=== PATIENT | female | born 1960 | race Caucasian/White ===

== ENCOUNTER 2023-05-21 10:25 | Outpatient (OUT) | payer OTHER, SELFPAY ==
--- NOTE | 2023-05-21 10:12 | XR_ITS ---
The [address] [address] Patient Name: RITA COBB MRN: [id number] date: 1960 Sex: F Assigned Patient Location: [facility] Current Patient Location: [facility] Accession/Order Number: [id number] Exam Date: 05/21/2023 10:12 Report Date: 05/21/2023 14:21 At the request of: MONICA CORTEZ Procedure: XR foot LT min 3V EXAM: XR foot LT min 3V HISTORY: LEFT FOOT PAIN COMPARISON: 04/13/2023. TECHNIQUE: 3 views left foot. FINDINGS: Prior subtalar joints and multiple midfoot internal fixation screws/arthrodesis with partial bony bridging at the posterior facet subtalar joint but otherwise no significant bridging across the hindfoot and midfoot regions. Severe Charcot arthropathy with chronic collapse and disassociation of the second through fifth metatarsals with mild lateral displacement similar to prior. There is slight increasing fragmentation along the distal midfoot/forefoot junction. Minimally increasing craniocaudal collapse and rocker-bottom deformity with edema. Remote deformity along the first IP joint. Mild degenerative change of the great toe MTP joint. IMPRESSION: Overall slight worsening fragmentation along the distal midfoot and slight increase in rocker-bottom deformity. No significant bony bridging across the midfoot fixation. Electronically authenticated by: DEBBIE GUIDRY Date: 05/21/2023 14:21
== END 2023-05-21 10:26 | disposition home or self-care (01) ==
LOC: RAD 10:25
PROVIDERS: Visit Provider Student in an Organized Health Care Education/Training Program
DX: M14.672 Charcot's joint, left ankle and foot (principal)
CPT/HCPCS: 73630

== ENCOUNTER 2023-06-10 14:30 | Outpatient (OUT) | payer OTHER, SELFPAY ==
--- NOTE | 2023-06-10 14:32 | XR_ITS ---
The [address] [address] Patient Name: RITA COBB MRN: [id number] date: 1960 Sex: F Assigned Patient Location: [facility] Current Patient Location: Accession/Order Number: [id number] Exam Date: 06/10/2023 15:00 Report Date: 06/11/2023 07:29 At the request of: ACOSTA CASTRO Procedure: XR foot LT min 3V PROCEDURE: XR foot LT min 3V HISTORY: LEFT FOOT PAIN COMPARISON: XR foot left 05/21/2023 FINDINGS: BONES:Prior hindfoot and medial midfoot fusion without evidence of hardware fracture or loosening. Advanced degenerative changes the midfoot and complete collapse of plantar arch. Prior bone harvesting from distal tibia. SOFT TISSUES:Soft tissue swelling surrounding the foot and ankle. EFFUSION:None visible. OTHER: Negative. XR/XR foot LT min 3V IMPRESSION: 1. Stable surgical changes without evidence of hardware failure or change in alignment. 2. Advanced Charcot joint involving the midfoot. Electronically authenticated by: BLANKA OLGUIN Date: 06/11/2023 07:29
== END 2023-06-10 14:31 | disposition home or self-care (01) ==
LOC: RAD 14:30
PROVIDERS: Visit Provider Podiatrist Foot & Ankle Surgery
DX: M14.672 Charcot's joint, left ankle and foot (principal)
CPT/HCPCS: 73630

== ENCOUNTER 2023-08-05 09:29 | Outpatient (OUT) | payer OTHER, SELFPAY ==
--- NOTE | 2023-08-05 | XR_ITS ---
The [address] [address] Patient Name: RITA COBB MRN: [id number] date: 1960 Sex: F Assigned Patient Location: [facility] Current Patient Location: [facility] Accession/Order Number: [id number] Exam Date: 08/05/2023 09:40 Report Date: 08/05/2023 10:07 At the request of: ACOSTA CASTRO Procedure: XR foot LT min 3V PROCEDURE: XR foot LT min 3V COMPARISON: 06/10/2023 HISTORY: LEFT FOOT PAIN FINDINGS: BONES:Stable severe degenerative changes of the midfoot with postsurgical fusion of the midfoot and hindfoot. No fracture, dislocation or mechanical failure. Marked degenerative changes of the midfoot with bony destruction. Lateral subluxation of the second through fifth metatarsals in relation to the tarsal bones with proximal metatarsal osteotomies SOFT TISSUES:Moderate diffuse soft tissue swelling EFFUSION:None visible. OTHER: Negative. XR/XR foot LT min 3V IMPRESSION: Stable severe degenerative and postsurgical changes consistent with underlying neuropathic osteoarthropathy Electronically authenticated by: BRODERICK FLOR Date: 08/05/2023 10:07
== END 2023-08-05 09:30 | disposition home or self-care (01) ==
LOC: RAD 09:29
PROVIDERS: Visit Provider Podiatrist Foot & Ankle Surgery
DX: M14.672 Charcot's joint, left ankle and foot (principal); M25.572 Pain in left ankle and joints of left foot
CPT/HCPCS: 73630

== ENCOUNTER 2023-10-28 08:53 | Outpatient (OUT) | payer OTHER, SELFPAY ==
--- NOTE | 2023-10-28 | XR_ITS ---
The [place] [id number] Patient Name: RITA COBB MRN: [id number] date: 1960 Sex: F Assigned Patient Location: [facility] Current Patient Location: Accession/Order Number: [id number] Exam Date: 10/28/2023 09:17 Report Date: 10/29/2023 21:37 At the request of: ACOSTA CASTRO Procedure: XR foot LT min 3V EXAM: XR foot LT min 3V HISTORY: LEFT FOOT PAIN COMPARISON: 08/05/2023 FINDINGS/IMPRESSION: 1. Surgical fusion of the subtalar joint and the mid foot. Fusion hardware is unchanged as compared to the prior examination. 2. Proximal second through fifth metatarsal osteotomies. Unchanged lateral subluxation of the proximal metatarsals in relation to the adjacent tarsal bones. 3. Degeneration of the mid foot consistent with neuropathic arthropathy. 4. No acute fracture. 5. Moderate to advanced degeneration at the first distal interphalangeal joint. Mild degeneration of the first metatarsophalangeal joint. 6. Calcaneal plantar enthesophyte. 7. No ankle joint effusion. Electronically authenticated by: SHAILA DE DIOS Date: 10/29/2023 21:37
== END 2023-10-28 08:54 | disposition home or self-care (01) ==
LOC: RAD 08:54
PROVIDERS: Visit Provider Podiatrist Foot & Ankle Surgery
DX: M79.672 Pain in left foot (principal); M19.072 Primary osteoarthritis, left ankle and foot
CPT/HCPCS: 73630

== ENCOUNTER 2024-02-16 13:27 | Outpatient (OUT) | payer OTHER, SELFPAY ==
--- NOTE | 2024-02-16 | XR_ITS ---
The [place] [id number] Patient Name: RITA COBB MRN: [id number] date: 1960 Sex: F Assigned Patient Location: Current Patient Location: Accession/Order Number: [id number] Exam Date: 02/16/2024 13:30 Report Date: 02/17/2024 07:17 At the request of: ACOSTA CASTRO Procedure: XR foot LT min 3V PROCEDURE: XR foot LT min 3V COMPARISON: 10/28/2023 HISTORY: LEFT FOOT PAIN FINDINGS: BONES:Stable subtalar and midfoot hindfoot fusion with no mechanical failure. Marked diffuse degenerative changes with bony remodeling of the midfoot. Likely remote resection base of the second through fifth metatarsals, unchanged. Bony remodeling first interphalangeal joint SOFT TISSUES:Negative. No visible soft tissue swelling. EFFUSION:None visible. OTHER: Negative. XR/XR foot LT min 3V IMPRESSION: Stable severe degenerative changes with intact fusion hardware Electronically authenticated by: BRODERICK FLOR Date: 02/17/2024 07:17
== END 2024-02-16 13:28 | disposition home or self-care (01) ==
LOC: EC 13:27
PROVIDERS: Visit Provider Podiatrist Foot & Ankle Surgery
DX: M14.672 Charcot's joint, left ankle and foot (principal)
CPT/HCPCS: 73630

== ENCOUNTER 2024-06-22 09:20 | Outpatient (OUT) | payer OTHER, SELFPAY ==
--- NOTE | 2024-06-22 | XR_ITS ---
[facility] [id number] Patient Name: RITA COBB MRN: [id number] date: 1960 Sex: F Assigned Patient Location: Current Patient Location: Accession/Order Number: [id number] Exam Date: 06/22/2024 09:20 Report Date: 06/22/2024 10:39 At the request of: ACOSTA CASTRO Procedure: XR foot LAURA min 3V EXAMINATION: XR foot LAURA min 3V HISTORY: BILATERAL FOOT PAIN COMPARISON: No relevant comparison available. FINDINGS: RIGHT FINDINGS: BONES: No acute fracture or dislocation. Plantar rotation of the hindfoot/navicular in relation to the midfoot and forefoot. Segmental appearance of the first and second tarsal bones likely representing remote osteotomies with incomplete fusion. Severe osteoarthritis most significant along the second through fifth tarsometatarsal joints and second and third metatarsal phalangeal joints. SOFT TISSUES: Negative. No visible soft tissue swelling. OTHER: Negative. LEFT FINDINGS: BONES: Marked degenerative changes with plantar rotation of the midfoot/hindfoot in relation to the forefoot. Subtalar fusion. Screw extending from the first metatarsal into the navicular. Suspected osteotomy at the base of the first through fifth metatarsals. Severe osteoarthritis of the first interphalangeal joint SOFT TISSUES: Negative. No visible soft tissue swelling. OTHER: Negative. XR/XR foot LAURA min 3V IMPRESSION: Severe bilateral osteoarthritis with postsurgical changes as detailed above Electronically authenticated by: BRODERICK FLOR Date: 06/22/2024 10:39
--- OUTSIDE RECORDS SUMMARY | 2024-06-22 09:34 | XMS_ITS | CCD ---
Author Organization [facility] Care Team Providers Care Panel Machine Tender Name Role Phone Charan Casey Unavailable Unavailable Unavailable Blas Ortiz Unavailable Charan Casey Unavailable Thierno Chatterjee Unavailable Renée Watts Unavailable Elpidio Whipple Unavailable Federico Sepulveda Unavailable DO Charan Casey Primary Care Provider DO Mathieu Paul Emergency Provider DO Charan Casey Other Provider MD Elpidio Whipple Attending Provider ROSS Ceja Attending Provider MD Dipak Amaro Attending Provider TIMOTEO Watts Attending Provider DO Charan Casey Primary Care Provider Eliud Rod Unavailable DO Charan Casey Primary Care Provider [phone] TIMOTEO Watts Attending Provider DO Charan Casey Primary Care Provider TIMOTEO Watts Attending Provider MD Federico Sepulveda Attending Provider [phone] MD Elpidio Whipple Attending Provider ACOSTA CASTRO Consulting Unavailable DR YEISON CASEYAN Primary Care Unavailable MATTHEW, ACOSTA Scott Attending Unavailable HIGHLMISAEL, ACOSTA Scott Admitting Unavailable SAQIB DECKER Consulting Unavailable DIEGO ., MONICA MCMAHON Consulting Unavailable JEMIMA LABOY Consulting Unavailable QUIRINO GONSALVES Consulting Unavailable SHARIF, BLANKA El Consulting Unavailable AJCINTO, DR FARRAR Primary Care Unavailable ZOE, REID Attending Unavailable ZOE, REID Admitting Unavailable ZOE, REID Consulting Unavailable SHAKIRAER, BLANKA R Consulting Unavailable KUNBryn, DR FARRAR Primary Care Unavailable ZOE, REID Attending Unavailable ZOE, REID Admitting Unavailable ZOE, REID Consulting Unavailable SHAKIRAER, BLANKA R Consulting Unavailable JACINTO, DR FARRAR Primary Care Unavailable HIGHLANDER, ACOSTA Scott Attending Unavailable HIGHLMISAEL, ACOSTA Scott Admitting Unavailable HIGHLANDER, ACOSTA Scott Consulting Unavailable BLANKA OLGUIN Consulting Unavailable HIGHLMISAEL, ACOSTA Scott Attending Unavailable HIGHLMISAEL, ACOSTA Scott Admitting Unavailable HIGHLANDER, ACOSTA Scott Consulting Unavailable WESTBRODERICK V Consulting Unavailable [facility], DR HAIDER Primary Care Unavailable HIGHLANDER, ACOSTA Scott Attending Unavailable HIGHLMISAEL, ACOSTA Scott Admitting Unavailable HIGHLANDER, ACOSTA Scott Consulting Unavailable BLANKA OLGUIN Consulting Unavailable JACINTO, DR FARRAR Primary Care Unavailable ZOE, REID Attending Unavailable ZOE, REID Admitting Unavailable ZOE, REID Consulting Unavailable WESTBRODERICK V Consulting Unavailable JACINTO, DR FARRAR Primary Care Unavailable ZOE, REID Attending Unavailable ZOE, REID Admitting Unavailable ZOE, REID Consulting Unavailable WESTBRODERICK V Consulting Unavailable JACINTO, DR FARRAR Primary Care Unavailable ZOE, REID Attending Unavailable ZOE, REID Admitting Unavailable ZOE, REID Consulting Unavailable HIGHLANDER, ACOSTA Scott Consulting Unavailable JACINTO, DR FARRAR Primary Care Unavailable HIGHLMISAEL, ACOSTA Scott Attending Unavailable HIGHLMISAEL, ACOSTA Scott Admitting Unavailable DAVID JEFFRIES Consulting Unavailable ACOSTA JOHNSON Unavailable HIGHLACOSTA DOUGLAS Consulting Unavailable JACINTO, DR FARRAR Primary Care Unavailable HIGHLMISAEL, ACOSTA Scott Attending Unavailable HIGHLMISAEL, ACOSTA Scott Admitting Unavailable SHARIF, BLANKA El Consulting Unavailable SHAIKH Aliyah THOMPSON Attending Unavailable SHAIKH Aliyah THOMPSON Admitting Unavailable JACINTO, DR FARRAR Primary Care Unavailable HIGHLMISAEL, ACOSTA Scott Consulting Unavailable SHAIKH Aliyah THOMPSON Consulting Unavailable DIEGO ., MONICA LISANDRO Consulting Unavailable JEMIMA LABOY Consulting Unavailable TERRELL HARVEY Consulting Unavailable CLARITA BLACKWELL Consulting Unavailable Jacinto, Dr. Charan Oliva Primary Care Unavaila ble Torres, Rosalinda Attending Unavailable Torres, Tellez Referring Unavailable Dr. Charan Casey Primary Care Unavaila ble Torres, Tellez Attending Unavailable Torres, Tellez Referring Unavailable Brysons, DO Farrar Primary Care Provider [phone] Kuns, DO Charan Attending Provider Kuns, DO Charan Primary Care Provider [phone] MD Blas Ortiz Attending Provider [phone] Kuns, DO Charan Primary Care Provider Brysons, DO Charan Attending Provider MD Thierno Chatterjee Attending Provider Yasmeen Treadwell Unavailable Kuns, DO Charan Primary Care Provider [phone] MD Blas Ortiz Attending Provider MD Elpidio Whipple Attending Provider [phone] Jacinto, DO Farrar Primary Care Provider MD Thierno Chatterjee Attending Provider MD Blas Ortiz Attending Provider MD Elpidio Whipple Attending Provider MD Yasmeen Treadwell Attending Provider [phone] Blas Bellamy Unavailable Kunbryn, DO Charan Primary Care Provider MD Blas Ortiz Attending Provider Kuns, DO Charan Attending Provider Kuns, DO Charan Primary Care Provider [phone] Kuns, DO Charan Primary Care Provider SHAINA MUNROE Attending Unavailable SHAINA MUNROE Attending Unavailable Charan Casey DO Primary Care Provider Rosalinda Torres MD Unavailable [phone] ROSALINDA TORRES Attending Unavailable KUNS, CHARAN MINOR Primary Care Unavailable Kuns, DO Charan Primary Care Provider [phone] Kuns, DO Charan Attending Provider MD Blas Ortiz Attending Provider Kuns, DO Charan Primary Care Provider Kuns, DO Charan Attending Provider Kuns, DO Charan Primary Care Provider Kuns, Charan Attending Unavailable Kuns, Charan Admitting Unavailable Kuns, Charan Primary Care Unavailable Asaad, Imad Attending Unavailable Asaad, Imad Admitting Unavailable Kuns, Charan Primary Care Unavailable Kuns, Charan Primary Care Unavailable Blas Ortiz Attending Unavailable Blas rOtiz Admitting Unavailable Kuns, Charan Primary Care Unavailable Blas Ortiz Admitting Unavailable Blas Ortiz Attending Unavailable Kuns, Charan Attending Unavailable Kuns, Charan Admitting Unavailable Kuns, Charan Primary Care Unavailable Kuns, Charan Attending Unavailable Kuns, Charan Admitting Unavailable Kuns, Charan Primary Care Unavailable Kuns, Charan Primary Care Unavailable Blas Ortiz Admitting Unavailable Blas Ortiz Attending Unavailable Kuns, Charan Attending Unavailable Kuns, Charan Admitting Unavailable Kuns, Charan Primary Care Unavailable Thierno Chatterjee Admitting Unavailable Thierno Chatterjee Attending Unavailable Kuns, Charan Primary Care Unavailable Kuns, Charan Primary Care Unavailable Blas Ortiz Attending Unavailable Blas Ortiz Admitting Unavailable Kuns, Charan Primary Care Unavailable Blas Ortiz Attending Unavailable Blas Ortiz Admitting Unavailable Sole, Elpidio Admitting Unavailable Sole, Elpidio Attending Unavailable Kuns, Charan Primary Care Unavailable Kuns, DO Charan Primary Care Provider MD Blas Ortiz Attending Provider Allergies Allergy Classification Reported Allergen(s) Allergy Type Date of Onset Reaction(s) Facility Lincosamides (antibiotic) (1 source) Clindamycin Drug Allergy 05-23-20 oral [facility] Quinolones (antibiotic) (1 source) levoFLOXacin Drug Allergy 05-23-20 24 hypoglycemia [facility] (20 sources) Erythromycin; 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: [Erythromycin Base TABS] Drug Allergy 12-04-19 24 nausea, Nausea/vomiting [facility] (20 sources) Clindamycin Drug Allergy 12-31-19 24 oral med - rash [facility] (20 sources) arzithomycin Propensity to adverse reactions 12-31-19 stomach upset [facility] (20 sources) erythromycin base; 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: [Erythromycin Base] Propensity to adverse reactions 03-25-20 22 Abdominal Pain, nausea, Abdominal Pain, nausea [facility] (2 sources) levoFLOXacin Drug Allergy [facility] Other (10 sources) levoFLOXacin; 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: [LEVOFLOXACIN] Drug Allergy 12-31-19 24 Nausea/vomiting [facility] Medications Current Medications Medication Drug Class(es) Dates Sig (Normalized) Sig (Original) amoxicillin 875 mg / clavulanate 125 mg oral tablet (13 sources) Penicillin-class Antibacterial Start: 10-21-2023 take 1 tablet by mouth every twelve hours Amoxicillin-Pot Clavulanate 875-125 MG 1 tablet Orally every 12 hrs for 14 days Nov, Active ascorbic acid 1000 mg oral tablet (7 sources) Vitamin C take 1 tablet by mouth once daily ascorbic acid (Vitamin C) 1,000 mg tablet Take 1 tablet (1,000 mg) by mouth once daily. 0 Active aspirin 81 mg delayed release oral tablet (20 sources) Platelet Aggregation Inhibitor, Nonsteroidal Anti-inflammatory Drug Start: 03-25-2022 take 81 mg by mouth once daily in the morning Aspirin Active 81 MG PO Every morning March 25, 2022 12:00am take 1 tablet by mouth once reynold y Aspirin 81 MG 1 tablet Orally Once a day Active b complex vitamins (Vitamins B Complex) capsule (1 source) take 1 capsule by mouth once daily b complex vitamins (Vitamins B Complex) capsule Take 1 capsule by mouth once daily. 0 Active benzonatate 200 mg oral capsule (13 sources) Non-narcotic Antitussive Start: take 1 capsule by mouth every eight hours Benzonatate 200 MG 1 capsule Orally Three times a day Nov, Active calcium carbonate 1500 mg oral tablet (15 sources) take 1 tablet by mouth every twenty-four hours Calcium 600 MG 1 tablet with meals Orally Once a day Active take 1 tablet by nicola th every twenty-four hours Calcium 600 MG 1 tablet with meals Orally Once a day Active cholecalciferol 0.05 mg oral capsule (8 sources) Vitamin D Start: 03-01-2024 take 50 ug by mouth once daily Cholecalciferol (Vitamin D3) Active 50 MCG PO Daily March 01, 2024 12:00am Start: 12-30-2022 take 1 tablet by nicola th once daily GNP Vitamin D Maximum Strength 50 MCG (1999 UT) Oral Tablet TAKE 1 TABLET BY MOUTH ONCE DAILY Quantity: 56 Refills: 0 Ordered: 30-Dec-2022 DO Start : 30-Dec-2022 Active CoQ-10 (15 sources) CoQ-10 Active CoQ-10 100 MG (6 sources) CoQ-10 100 MG as directed Orally ONCE A DAY Active Dexcom G6 Pit Furnace Operator - (20 sources) Start: 03-19-2021 Dexcom G6 Rece iver - use as directed to monitor dexcom sensor Feb, Active Start: 03-19-2021 Dexcom G6 Sensor - (20 sources) Start: 03-19-2021 Dexcom G6 Sens or - as directed change q 10 days for 90 days Feb, Active Start: 03-19-2021 Dexcom G6 Sens or - as directed change q 10 days Feb, Active Start: 03-19-2021 Dexcom G6 Transmitter - (20 sources) Start: 03-19-2021 Dexcom G6 Orozco smitter - as directed change Q 3 months Feb, Active Start: 03-19-2021 Dexcom G7 Pit Furnace Operator - (20 sources) Start: 07-02-2023 Dexcom G7 Rece iver - as directed as directed as directed Jun, Active Dexcom G7 Sensor - (20 sources) Start: 07-02-2023 Dexcom G7 Sens or - as directed as directed change every 10 days for 90 days Jun, Active Start: 07-02-2023 Dexcom G7 Sens or - as directed as directed change every 10 days for 30 days Jun, Active diclofenac sodium 20 mg/ml topical solution (20 sources) Nonsteroidal Anti-inflammatory Drug Start: 09-09-2018 Pennsaid 2 % 2 pu mps to affected area Transdermal Twice a day Aug, Active Start: 09-09-2018 ergocalciferol 1.25 mg oral capsule (20 sources) Provitamin D2 Compound Start: 08-29-2021 take 1 capsule by mouth once daily ergocalciferol (Vitamin D-2) 1.25 MG (15123 UT) capsule Take 1 capsule (50,000 Units) by mouth once daily. 0 08/29/2021 Active Start: 08-29-2021 take 1 tablet by nicola two times weekly Vitamin D (Ergocalciferol) 1.25 MG (79523 UT) Oral Capsule Take 1 tablet twice weekly Quantity: 0 Refills: 0 Ordered: 14-Jan-2022 DO Start : 29-Aug-2021 Active Start: 06-15-2020 End: 03-01-2024 take 1250 ug by mouth every week Ergocalciferol (Vitamin D2) Discontinued 1250 MCG PO every week June 15, 2020 12:00am March 01, 2024 9:34am thursday take 1 capsule by mo [facility] every week Ergocalciferol 61189 UNIT 1 capsule Orally Q week Active take 1 capsule by mo ut every week Ergocalciferol 87370 UNIT 1 capsule Orally Q week Active Brooke-C - (20 sources) Brooke-C - as dir ected Orally Active fluticasone propionate 0.05 mg/actuat metered dose nasal spray (10 sources) Corticosteroid Start: 10-21-2023 take 1 spray(s) nasal route twice daily Fluticasone Propionate 50 MCG/ACT 1 spray in each nostril Nasally Twice a day for 14 days Sep, Active Start: 10-21-2023 take 1 spray(s) nasa l route twice daily Fluticasone Propionate 50 MCG/ACT 1 spray in each nostril Nasally Twice a day for 14 days Sep, Active Insulin Lispro (Humalog Kwikpen Insulin) 100 unit/mL insulin pen (8 sources) Start: 02-23-2024 inject 100 [IU] by subcutaneous injection once daily at bedtime as needed Insulin Lispro (Humalog Kwikpen Insulin) 100 unit/mL insulin pen Active 5 - 6 UNIT SUBCUT Twice daily February 23, 2024 5:04pm once a day in the morning and PRN QHS 3 ml insulin, regular, human 500 unt/ml pen injector (20 sources) Insulin Start: 03-01-2024 Insulin Regula r Hum U-500 Conc (Humulin R U-500 (Conc) Kwikpen) 500 unit/mL (3 mL) insulin pen Active 55 UNIT SUBCUT Twice daily March 01, 2024 9:35am Start: 02-23-2024 End: 03-01-2024 inject 60 [IU] by subcutaneous injection in the morning, then inject 30 [IU] by subcutaneous injection in the evening Insulin Regular Hum U-500 Conc (Humulin R U-500 (Conc) Kwikpen) 500 unit/mL (3 mL) insulin pen Discontinued 0 SUBCUT As Directed February 23, 2024 5:09pm March 01, 2024 9:42am 60 units in the morning and 30 units in the evening subcutaneously as directed; Start: 04-06-2023 inject 60 [IU] by warren bcutaneous injection in the morning, then inject 30 [IU] by subcutaneous injection in the evening HumuLIN R U-500 KwikPen 500 UNIT/ML Subcutaneous Solution Pen-injector ADMINISTER 60 UNITS IN THE MORNING AND 30 UNITS IN THE EVENING Quantity: 12 Refills: 0 Ordered: 06-Apr-2023 DO Start : 06-Apr-2023 Active Start: 02-11-2018 End: 02-12-2024 Insulin Regular Hum U-500 Co nc (Humulin R U-500 (Conc) Insulin) 500 unit/mL solution Discontinued 80 UNIT SUBCUT Daily with breakfast February 11, 2018 11:16am February 12, 2024 12:28pm Patient varies dosage depending on dietary intake Start: 02-11-2018 End: 02-12-2024 inject 40 [IU] by subcutaneous injection once daily Insulin Regular Hum U-500 Conc (Humulin R U-500 (Conc) Insulin) 500 unit/mL solution Discontinued 40 UNIT SUBCUT Daily with supper February 11, 2018 11:16am February 12, 2024 12:29pm Pt. varies dosage according to dietary intake. Start: 01-21-2018 End: 02-11-2018 Insulin Regular Hum U-500 Co nc (Humulin R U-500 (Conc) Kwikpen) 500 unit/mL (3 mL) Insulin Pen Discontinued 0 .ROUTE .COMPLEX January 21, 2018 1:00am February 11, 2018 11:17am Check glucose ac, hs. Use corrective scale ac tid. Use hs if glucose >225. Start: 01-17-2018 End: 02-11-2018 Insulin Regular Hum U-500 Co nc (Humulin R U-500 (Conc) Insulin) 500 unit/mL solution Discontinued 90 UNIT SUBCUT Daily with breakfast 0 January 21, 2018 8:54am February 11, 2018 11:16am If eating Start: 12-25-2017 End: 01-17-2018 Insulin Regular Hum U-500 Co nc (Humulin R U-500 (Conc) Insulin) 500 unit/mL Solution Discontinued 80 UNIT SUBCUT Daily with supper 0 January 02, 2018 6:07pm January 17, 2018 1:34am Start: 12-25-2017 End: 01-17-2018 Insulin Regular Hum U-500 Co nc (Humulin R U-500 (Conc) Insulin) 500 unit/mL Solution Discontinued 100 UNIT SUBCUT Daily with breakfast 0 January 03, 2018 3:07pm January 17, 2018 1:34am Start: 12-25-2017 End: 12-25-2017 inject 100 [IU] by subcutaneous injection once daily before breakfast Insulin Regular Human (Humulin R U-100) 100 unit/mL Solution Discontinued 100 UNITS SUBCUT Daily before breakfast December 25, 2017 1:00am December 25, 2017 3:53pm Start: 12-25-2017 End: 12-25-2017 inject 80 [IU] by subcutaneous injection once daily Insulin Regular Human (Humulin R U-100) 100 unit/mL Solution Discontinued 80 UNITS SUBCUT Daily before supper December 25, 2017 1:00am December 25, 2017 3:53pm inject 60 [IU] by warren bcutaneous injection every three months in the morning, then inject 30 [IU] by subcutaneous injection twice daily in the evening HumuLIN R U-500 KwikPen 500 UNIT/ML 60 units am and 30 units pm Subcutaneous bid 3 boxes or 3 month supply Active inject 70 [IU] by warren bcutaneous injection every three months in the morning, then inject 25 [IU] by subcutaneous injection twice daily in the evening HumuLIN R U-500 KwikPen 500 UNIT/ML 70 units am and 25 units pm Subcutaneous bid 3 boxes or 3 month supply Active inject 80 [IU] by warren bcutaneous injection every three months in the morning, then inject 40 [IU] by subcutaneous injection twice daily in the evening HumuLIN R U-500 KwikPen 500 UNIT/ML 80 units am and 40 units pm Subcutaneous bid 3 boxes or 3 month supply Active inject 90 [IU] by warren bcutaneous injection every three months in the morning, then inject 45 [IU] by subcutaneous injection twice daily in the evening HumuLIN R U-500 KwikPen 500 UNIT/ML 90 units am and 45 units pm Subcutaneous bid 3 boxes or 3 month supply Active levoFLOXacin 500 mg oral tablet (3 sources) Quinolone Antimicrobial Start: 12-30-2023 take 1 tablet by mouth every twenty-four hours levoFLOXacin 500 MG 1 tablet Orally Once a day for 7 days Nov, Active magnesium glycinate 100 mg oral tablet (20 sources) Start: 06-17-2019 take 600 mg by mouth once daily at bedtime Magnesium Glycinate Active 600 MG PO Daily at bedtime June 17, 2019 12:00am Start: 01-19-2018 End: 02-11-2018 take 600 mg by mouth once daily at bedtime Magnesium Glycinate Discontinued 600 MG PO Daily at bedtime January 19, 2018 1:00am February 11, 2018 11:15am Magnesium Glycinate Plus 600 mg (20 sources) Magnesium Glycin ate Plus 600 mg 1 tablet QHS Active nitroglycerin 0.4 mg sublingual tablet (20 sources) Nitrate Vasodilator Start: 03-25-2022 Nitroglyce rin Active 0.4 MG BUCCAL As Directed March 25, 2022 12:00am Start: 03-25-2022 Nitroglycerin Active 0.4 MG BUCCAL As Directed March 24, 2022 11:00pm olmesartan medoxomil 40 mg oral tablet (20 sources) Angiotensin 2 Receptor Luis Start: 04-19-2024 take 40 mg by mouth once daily Olmesartan Active 40 MG PO Daily April 19, 2024 12:00am Start: 03-25-2022 End: 04-19-2024 take 40 mg by mouth once daily in the morning Olmesartan Discontinued 40 MG PO Every morning March 25, 2022 12:00am April 19, 2024 9:00am Start: 06-17-2019 End: 03-25-2022 take 1 tablet by mouth once daily in the morning Olmesartan (Benicar) 20 mg Tablet Discontinued 20 MG PO Every morning June 17, 2019 12:00am March 25, 2022 10:17am Start: 03-11-2019 take 2 tablets by [facility] every twenty-four hours Start: 03-11-2019 take 2 tablets by [facility] every twenty-four hours Olmesartan Medoxomil 40 MG 2 tablet Orally Once a day for 90 day(s) Feb, Active omega-3 acid ethyl esters (u sp) 1000 mg oral capsule (20 sources) Start: 06-15-2019 End: 03-23-2024 Bedrock-3 Acid Ethyl Esters (Lovaza) 1 gram capsule Active 2 CAP PO Twice daily 360 90 March 23, 2024 3:07pm Start: 12-25-2017 End: 01-03-2018 Bedrock-3 Acid Ethyl Esters (L ovaza) 1 gram Capsule Discontinued 2 CAP PO Twice daily December 25, 2017 1:00am January 03, 2018 3:03pm omega-3 acid eth yl esters (Lovaza) 1 gram capsule Take 1 capsule (1 g) by mouth twice a day. 0 Active polyethylene glycol 3350 162471 mg / potassium chloride 2970 mg / sodium bicarbonate 6740 mg / sodium chloride 5860 mg / sodium sulfate 96146 mg powder for oral solution (2 sources) Osmotic Laxative Start: 08-26-2023 Golytely 236 GM At 4:00 pm the day prior to colonoscopy Orally 8 ounces every 15 minutes for 1 days PLEASE CHECK ALLERGIES Jul, Active Super B Complex (20 sources) Super B Complex Active tiZANidine 4 mg oral tablet (20 sources) Central alpha-2 Adrenergic Agonist Start: 02-04-2024 take 4 mg by mouth twice daily Tizanidine Active 4 MG PO Twice daily 60 February 04, 2024 11:17am Start: 09-08-2023 End: 02-04-2024 take 4 mg by mouth three times daily Tizanidine Discontinued 4 MG PO Three times daily September 08, 2023 12:00am February 04, 2024 11:18am Start: 06-15-2019 End: 07-16-2020 take 1 capsule by mouth every eight hours Tizanidine (Zanaflex) 2 mg Capsule Discontinued 2 MG PO Q8H June 15, 2019 12:00am July 16, 2020 5:01pm take 1 tablet by [facility] twice daily as needed tiZANidine HCl 4 MG 1 tablet as needed Orally up to twice daily as needed Active ubidecarenone 300 mg oral ca psule (17 sources) Start: 03-01-2024 Coenzyme Q10 A ctive 300 MG PO Daily March 01, 2024 12:00am Start: 05-08-2022 take 1 capsule by mo [facility] twice daily Co-Enzyme Q10 100 MG Oral Capsule TAKE 1 CAPSULE TWICE DAILY. Quantity: 180 Refills: 3 Ordered: 08-May-2022 Rosalinda Torres MD Start : 08-May-2022 Active CoQ-10 100 MG as directed Orally ONCE A DAY Active ubiquinol (1 source) COQ10, UBIQUINOL , ORAL Take by mouth. 0 Active Vitamin B Complex (20 sources) Start: 06-15-2019 take 1 tablet by mouth once daily in the morning Vitamin B Complex Active 1 TAB PO Every morning June 15, 2019 12:00am Start: 06-15-2019 take 1 tablet by nicola once daily in the morning Vitamin B Complex Active 1 TAB PO Every morning June 14, 2019 11:00pm Completed/Discontinued Medications Medication Drug Class(es) Dates Sig (Normalized) Sig (Original) Accu-Chek Vicenta as manufactured (20 sources) Start: 12-05-2016 Accu-Chek Vicenta as manufactured four times daily 250.92/V58.67 qid Nov, Not-Taking Start: 12-05-2016 Accu-Chek Nghia a as manufactured four times daily 250.92/V58.67 qid Nov, Active Start: 12-05-2016 Accu-Chek SmartView as manufactured (20 sources) Start: 12-05-2016 Accu-Chek Smar tView as manufactured QID e11.9 QID Nov, Not-Taking Start: 12-05-2016 Accu-Chek Smar tView as manufactured QID e11.9 QID Nov, Active Start: 12-05-2016 acetaminophen 325 mg / HYDROcodone bitartrate 5 mg oral tablet (20 sources) Opioid Agonist Start: 06-19-2020 End: 07-27-2020 take 1 tablet by mouth twice daily Hydrocodone-Acetaminophen ([place]) 5-325 mg tablet Discontinued 1 TAB PO Twice daily June 19, 2020 12:00am July 27, 2020 8:14am Start: 01-17-2018 End: 06-15-2019 take 1-2 tablets by mouth every six hours as needed for pain Hydrocodone-Acetaminophen ([place]) 5-325 mg tablet Discontinued 2 TAB PO Q6H 45 February 17, 2018 June 15, 2019 1:47pm 1-2 tabs every 6 hours as needed for pain acetaminophen 325 mg / oxyCODONE hydrochloride 5 mg oral tablet (20 sources) Opioid Agonist Start: 01-03-2018 End: 01-17-2018 take 1 tablet by mouth every four hours Oxycodone-Acetaminophen Discontinued 1 TAB PO Q4H 10 January 03, 2018 1:00am January 17, 2018 1:34am alendronic acid 70 mg oral tablet (11 sources) Bisphosphonate Start: 12-16-2022 take 1 tablet by mouth every week Alendronate Sodium 70 MG Oral Tablet TAKE 1 TABLET BY MOUTH once weekly Quantity: 12 Refills: 0 Ordered: 04-Mar-2023 DO Start : 16-Dec-2022 Active End: 02-22-2024 take 1 tablet by mouth in the morning alendronate (Fosamax) 70 mg tablet Take 1 tablet (70 mg) by mouth every 7 days. Take in the morning with a full glass of water, on an empty stomach, and do not take anything else by mouth or lie down for the next 30 min. 0 02/22/2024 Discontinued (Other) take 1 tablet by nicola th once daily, then take 1 tablet by mouth every week Fosamax 70 MG 1 tablet 30 minutes before the first food, beverage or medicine of the day with plain water Orally 1 weekly Active allopurinol 100 mg oral tablet (20 sources) Xanthine Oxidase Inhibitor Start: 06-15-2020 End: 02-18-2024 take 100 mg by mouth once daily in the morning Allopurinol Discontinued 100 MG PO Every morning February 17, 2024 3:58pm February 18, 2024 10:09am amitriptyline hydrochloride 25 mg oral tablet (20 sources) Tricyclic Antidepressant Start: 12-25-2017 End: 01-03-2018 take 25 mg by mouth at bedtime Amitriptyline Discontinued 25 MG PO Bedtime December 25, 2017 1:00am January 03, 2018 3:03pm Calcium (1 source) Phosphate Binder, Calcium Calcium TABS 1 TAB DAILY Quantity: 0 Refills: 0 Ordered: 30-Apr-2023 DO Active cephalexin 500 mg oral capsule (20 sources) Cephalosporin Antibacterial Start: 07-27-2022 End: 09-08-2023 take 500 mg by mouth every six hours Cephalexin Discontinued 500 MG PO Q6H 26 06July 27, 2022 12:00am September 08, 2023 7:16am Start: 07-27-2020 End: 04-01-2021 take 1 capsule by mouth every eight hours Cephalexin (Keflex) 500 mg capsule Discontinued 500 MG PO Q8H July 27, 2020 12:00am April 01, 2021 1:03pm clindamycin 150 mg oral capsule (20 sources) Lincosamide Antibacterial Start: 01-03-2018 End: 01-17-2018 take 450 mg by mouth three times daily Clindamycin Hcl Discontinued 450 MG PO Three times daily 19 06January 03, 2018 1:00am January 17, 2018 1:33am cyclobenzaprine hydrochloride 10 mg oral tablet (20 sources) Muscle Relaxant Start: 07-27-2020 End: 02-04-2024 take 10 mg by mouth three times daily Cyclobenzaprine Discontinued 10 MG PO Three times daily July 27, 2020 12:00am February 04, 2024 11:18am esomeprazole 40 mg delayed release oral capsule (20 sources) Proton Pump Inhibitor Start: 12-25-2017 End: 01-17-2018 take 1 capsule by mouth once daily Esomeprazole Magnesium (Nexium) 40 mg Capsule,Delayed Release(Dr/Ec) Discontinued 40 MG PO Daily December 25, 2017 1:00am January 17, 2018 1:34am ezetimibe 10 mg oral tablet (1 source) Dietary Cholesterol Absorption Inhibitor Start: 05-08-2022 take 1 tablet by mouth at bedtime Ezetimibe 10 MG Oral Tablet TAKE 1 TABLET AT BEDTIME. Quantity: 90 Refills: 3 Ordered: 08-May-2022 Rosalinda Torres MD Start : 08-May-2022 Active furosemide 20 mg oral tablet (20 sources) Loop Diuretic Start: 06-15-2019 End: 01-17-2020 take 1 tablet by mouth once daily in the morning Furosemide (Lasix) 20 mg Tablet Discontinued 20 MG PO Every morning June 15, 2019 12:00am January 17, 2020 10:26am 3 ml insulin lispro 100 unt/ml pen injector (20 sources) Insulin Analog Start: 04-06-2023 inject 100 [IU] by subcutaneous injection at bedtime Insulin Lispro (1 Unit Dial) 100 UNIT/ML Subcutaneous Solution Pen-injector ADMINISTER 5-6 UNITS SUBCUTANEOUSLY IN THE MORNING AND at bedtime Quantity: 12 Refills: 0 Ordered: 06-Apr-2023 DO Start : 06-Apr-2023 Active Start: 03-25-2022 inject 100 [IU] by s ubcutaneous injection once daily Insulin Lispro (Humalog Kwikpen Insulin) 100 unit/mL Insulin Pen Active 5 - 7 UNIT SUBCUT Daily with supper March 25, 2022 12:00am Start: 07-25-2020 inject 5 [IU] by sub cutaneous injection once daily at breakfast Insulin Lispro (Humalog Kwikpen Insulin) 100 unit/mL Insulin Pen Active 5 UNIT SUBCUT Daily with breakfast July 25, 2020 12:00am Start: 06-15-2019 End: 07-25-2020 inject 5 [IU] by subcutaneous injection once daily in the morning Insulin Lispro (Humalog U-100 Insulin) 100 unit/mL Cartridge Discontinued 5 UNIT SUBCUT Every morning June 15, 2019 12:00am July 25, 2020 1:10pm insulin lispro ( HumaLOG) 100 unit/mL injection Inject under the skin. Take as directed per insulin instructions. 0 Active HumaLOG KwikPen 100 UNIT/ML 7 units q am 5-7 U qhs Subcutaneous BID - Once a day in AM, QHS prn Active HumaLOG SOLN USE DIRECTED. Quantity: 0 Refills: 0 Ordered: 20-Feb-2022 DO Active Insulin Lispro (Humalog Kwikpen Insulin) 100 unit/mL Insulin Pen (20 sources) Start: 03-25-2022 End: 02-23-2024 inject 100 [IU] by subcutaneous injection once daily Insulin Lispro (Humalog Kwikpen Insulin) 100 unit/mL Insulin Pen Discontinued 5 - 7 UNIT SUBCUT Daily with supper March 25, 2022 12:00am February 23, 2024 5:08pm Start: 03-25-2022 inject 100 [IU] by s ubcutaneous injection once daily Insulin Lispro (Humalog Kwikpen Insulin) 100 unit/mL Insulin Pen Active 5 - 7 UNIT SUBCUT Daily with supper March 24, 2022 11:00pm Start: 03-25-2022 inject 100 [IU] by s ubcutaneous injection once daily Insulin Lispro (Humalog Kwikpen Insulin) 100 unit/mL Insulin Pen Active 5 - 7 UNIT SUBCUT Daily with supper March 25, 2022 12:00am Start: 07-25-2020 End: 02-23-2024 inject 5 [IU] by subcutaneous injection once daily at breakfast Insulin Lispro (Humalog Kwikpen Insulin) 100 unit/mL Insulin Pen Discontinued 5 UNIT SUBCUT Daily with breakfast July 25, 2020 12:00am February 23, 2024 5:05pm Start: 07-25-2020 inject 5 [IU] by sub cutaneous injection once daily at breakfast Insulin Lispro (Humalog Kwikpen Insulin) 100 unit/mL Insulin Pen Active 5 UNIT SUBCUT Daily with breakfast July 24, 2020 11:00pm Start: 07-25-2020 inject 5 [IU] by sub cutaneous injection once daily at breakfast Insulin Lispro (Humalog Kwikpen Insulin) 100 unit/mL Insulin Pen Active 5 UNIT SUBCUT Daily with breakfast July 25, 2020 12:00am Ketorolac (20 sources) Nonsteroidal Anti-inflammatory Drug, Cyclooxygenase Inhibitor Start: 03-11-2019 Toradol p er 15 mg Feb, 2 cc Start: 09-09-2018 Toradol per 15 mg Aug, 2 cc Start: 09-06-2018 Toradol per 15 mg Aug, 60 mg Start: 12-08-2015 Toradol per 15 mg Nov, 60 mg Start: 11-13-2015 Toradol per 15 mg Oct, 60 mg Start: 11-09-2015 Toradol per 15 mg Oct, 2 mL Start: 03-22-2015 Toradol per 15 mg Feb, 2 cc lisinopril 40 mg oral tablet (20 sources) Angiotensin Converting Enzyme Inhibitor Start: 12-25-2017 End: 01-03-2018 take 40 mg by mouth once daily Lisinopril Discontinued 40 MG PO Daily December 25, 2017 1:00am January 03, 2018 3:03pm lovastatin 20 mg oral tablet (20 sources) HMG-CoA Reductase Inhibitor Start: 12-25-2017 End: 01-03-2018 take 20 mg by mouth once daily Lovastatin Discontinued 20 MG PO Daily December 25, 2017 1:00am January 03, 2018 3:03pm magnesium citrate 100 mg oral tablet (20 sources) Start: 06-15-2019 End: 06-17-2019 take 600 mg by mouth once daily Magnesium Citrate Discontinued 600 MG PO Daily June 15, 2019 12:00am June 17, 2019 6:50am metFORMIN hydrochloride 1000 mg oral tablet (20 sources) Biguanide Start: 12-25-2017 End: 01-02-2018 take 1000 mg by mouth twice daily Metformin Discontinued 1000 MG PO Twice daily December 25, 2017 1:00am January 02, 2018 5:58pm 24 hr metoprolol succinate 200 mg extended release oral tablet (20 sources) beta-Adrenergic Luis Start: 03-30-2018 Start: 12-25-2017 End: 02-18-2024 take 200 mg by mouth once daily at bedtime Metoprolol Succinate Discontinued 200 MG PO Daily at bedtime 90 February 17, 2024 4:00pm February 18, 2024 10:09am take 1 tablet by nicola th once daily Toprol XL 50 MG Oral Tablet Extended Release 24 Hour TAKE 1 TABLET DAILY. Quantity: 90 Refills: 3 Ordered: 12-Mar-2022 DO Active naproxen 250 mg oral tablet (14 sources) Nonsteroidal Anti-inflammatory Drug Start: 09-08-2023 End: 02-12-2024 take 250 mg by mouth twice daily Naproxen Discontinued 250 MG PO Twice daily September 08, 2023 12:00am February 12, 2024 12:29pm NIFEdipine 60 mg osmotic 24 hr extended release oral tablet (20 sources) Dihydropyridine Calcium Channel Luis Start: 01-03-2018 End: 06-15-2019 take 60 mg by mouth once daily Nifedipine Discontinued 60 MG PO Daily 30 January 03, 2018 1:00am June 15, 2019 1:49pm ondansetron 4 mg disintegrating oral tablet (20 sources) Serotonin-3 Receptor Antagonist Start: 01-17-2018 End: 06-15-2019 take 1 tablet by mouth every eight hours Ondansetron (Zofran Odt) 4 mg tablet,disintegra ting Discontinued 4 MG PO Q8H January 17, 2018 1:00am June 15, 2019 1:50pm oxyCODONE hydrochloride 5 mg oral capsule (20 sources) Opioid Agonist Start: 07-27-2020 End: 04-01-2021 take 5-10 mg by mouth every six hours Oxycodone Discontinued 5 - 10 MG PO Q6H 60 8 July 27, 2020 April 01, 2021 1:04pm Prednisone (20 sources) Start: 07-27-2020 End: 04-01-2021 Prednisone Discontinued 1 dose pk PO per package directions July 27, 2020 12:00am April 01, 2021 1:04pm take 4 tabs for 3 days then take 3 tabs for 3 days then take 2 tabs for 3 days then take 1 tab for 3 days Start: 07-27-2020 End: 04-01-2021 Prednisone Discontinued 1 do se pk PO per package directions July 26, 2020 11:00pm April 01, 2021 12:04pm take 4 tabs for 3 days then take 3 tabs for 3 days then take 2 tabs for 3 days then take 1 tab for 3 days pregabalin 300 mg oral capsule (20 sources) Start: 01-21-2022 take 1 capsule by mouth once in the morning Pregabalin 75 MG 1 capsule Orally Q AM Dec, Active Start: 08-02-2021 Start: 08-02-2021 take 1 capsule by mo uth once in the morning Pregabalin 75 MG 1 capsule Orally Q AM Jul, Active Start: 04-01-2021 End: 05-20-2024 take 1 capsule by mouth once daily Pregabalin (Lyrica) 150 mg capsule Discontinued 150 MG PO Daily February 12, 2024 12:34pm February 12, 2024 5:43pm Start: 06-15-2019 End: 05-20-2024 take 1 capsule by mouth once daily at bedtime Pregabalin (Lyrica) 300 mg capsule Discontinued 300 MG PO Daily at bedtime February 12, 2024 12:35pm February 12, 2024 5:46pm Start: 01-21-2018 End: 02-11-2018 take 1 capsule by mouth twice daily Pregabalin (Lyrica) 75 mg Capsule Discontinued 75 MG PO Twice daily January 21, 2018 1:00am February 11, 2018 11:16am Start: 12-25-2017 End: 01-03-2018 take 1 capsule by mouth twice daily Pregabalin (Lyrica) 300 mg Capsule Discontinued 300 MG PO Twice daily December 25, 2017 1:00am January 03, 2018 3:03pm End: 02-22-2024 take 1 capsule by mouth once daily in the morning PREGABALIN ORAL Take 1 capsule by mouth once daily in the morning. 0 02/22/2024 Discontinued (Other) Lyrica ANNY TAKI NG 150MG IN AM, 300MG IN PM Quantity: 0 Refills: 0 Ordered: 20-Feb-2022 DO Active rosuvastatin calcium 10 mg oral tablet (20 sources) HMG-CoA Reductase Inhibitor Start: 02-05-2024 End: 02-04-2025 Rosuvastatin Discontinued 10 MG PO February 12, 2024 12:00am March 01, 2024 9:42am Start: 11-12-2022 Rosuvastatin C alcium 10 MG Oral Tablet one tablet on , , Quantity: 45 Refills: 3 Ordered: 12-Nov-2022 Rosalinda Torres MD Start : 12-Nov-2022 Active Start: 05-08-2022 take 1 tablet by nicola th once daily Rosuvastatin Calcium 10 MG Oral Tablet TAKE 1 TABLET DAILY. Quantity: 90 Refills: 3 Ordered: 08-May-2022 Rosailnda Torres MD Start : 08-May-2022 Active sodium bicarbonate 325 mg oral tablet (20 sources) Start: 01-17-2018 End: 02-11-2018 take 325 mg by mouth twice daily Sodium Bicarbonate Discontinued 325 MG PO Twice daily January 17, 2018 1:00am February 11, 2018 11:16am TB Test (20 sources) Start: 07-29-2013 TB Test Jun 0.1 mL Start: 09-08-2012 TB Test Aug TENS Unit (20 sources) Start: 04-23-2021 TENS Unit Use as directed. March, Not-Taking Start: 04-23-2021 TENS Unit Use as directed. March, Active Start: 04-23-2021 ticagrelor 90 mg oral tablet (20 sources) Start: 03-27-2022 End: 09-08-2023 take 1 tablet by mouth twice daily Ticagrelor (Brilinta) 90 mg tablet Discontinued 90 MG PO Twice daily 180 March 27, 2022 12:00am September 08, 2023 7:17am traMADol hydrochloride 50 mg oral tablet (20 sources) Opioid Agonist Start: 02-12-2024 End: 06-13-2024 take 50 mg by mouth twice daily Tramadol Discontinued 50 MG PO Twice daily March 01, 2024 9:39am April 27, 2024 11:44am Start: 10-28-2023 take 1 tablet by nicola th twice daily as needed traMADol HCl 50 MG 1 tablet as needed Orally up to twice daily as needed for 30 days Sep, Active Start: 10-19-2023 take 1 tablet by nicola th twice daily as needed traMADol HCl 50 MG 1 tablet as needed Orally up to twice daily as needed for 15 days Sep, Active Start: 04-01-2021 End: 09-08-2023 take 50 mg by mouth once daily Tramadol Discontinued 5 0 MG PO Daily April 01, 2021 12:00am September 08, 2023 7:18am Start: 06-15-2019 End: 07-16-2020 take 50 mg by mouth four times daily Tramadol Discontinued 50 MG PO Four times daily June 15, 2019 12:00am July 16, 2020 5:02pm take 1 tablet by nicola th once daily traMADol ER, biphasic, (Ryzolt) 100 mg 24 hr tablet Take 1 tablet (100 mg) by mouth once daily. Do not crush, chew, or split. 0 Active take 1 tablet by nicola twice daily as needed traMADol HCl 50 MG 1 tablet as needed Orally up to twice daily as needed for 30 days Active triamcinolone acetonide 40 mg/ml injectable suspension (20 sources) Corticosteroid Start: 05-21-2023 Kenalog-40 Aug, 40 mg Vitamin B Complex CAPS (5 sources) Vitamin B Comple x CAPS TAKE 1 CAPSULE Daily Quantity: 0 Refills: 0 Ordered: 20-Feb-2022 DO Active Vitamin B Complex Oral Capsule (1 source) take 1 capsule by mouth once daily Vitamin B Complex Oral Capsule TAKE 1 CAPSULE Daily Quantity: 0 Refills: 0 Ordered: 20-Feb-2022 DO Active Problems Active Problems Problem Classification Problem Date Documented Da te Episodic/Chronic Abdominal pain (20 sources) Right upper quadrant pain; 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: [Right upper quadrant pain] 02-17-2018 Episodic Acute and unspecified renal failure (20 sources) Injury of kidney; 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: [Acute kidney failure, unspecified] 02-17-2018 Episodic Asthma (5 sources) Asthmatic bronchitis; 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: [Unspecified asthma, uncomplicated] Onset: 4 Chronic Bacterial infection; unspecified site (20 sources) Streptococcal infectious disease; 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: [Streptococcus, group A, as the cause of diseases classified elsewhere] 02-17-2018 Episodic Biliary tract disease (20 sources) Biliary dyskinesia; 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: [Other specified diseases of gallbladder] Episodic Zepeda (20 sources) Burn of second degree of unspecified foot, initial encounter; 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: [Burn of foot] Episodic Calculus of urinary tract (11 sources) Kidney stone; 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: [Calculus of kidney] 03-01-2024 Episodic Chronic kidney disease (20 sources) Chronic kidney disease stage 3; 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: [Chronic kidney disease, stage 3 (moderate)] Onset: 2 Resolved: 2 Chronic Chronic kidney disease (20 sources) Chronic kidney disease; 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: [Chronic kidney disease, stage III (moderate)] Onset: 2 Resolved: 2 Chronic ulcer of skin (20 sources) Chronic ulcer of ankle; 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: [Non-pressure chronic ulcer of left ankle with fat layer exposed] 02-17-2018 Chronic Coagulation and hemorrhagic disorders (20 sources) Thrombocytopenic disorder; 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: [Thrombocytopenia, unspecified] 02-17-2018 Chronic Coronary atherosclerosis and other heart disease (20 sources) Coronary arteriosclerosis; 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: [Coronary atherosclerosis of unspecified type of vessel, alturas or graft] Onset: 2 Resolved: 2 Chronic Coronary atherosclerosis and other heart disease (3 sources) Presence of coronary angioplasty implant and graft; 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: [PRESENCE COR ANGPLSTY IMPLANT AND GRAFT] Onset: 3 Episodic Deficiency and other anemia (20 sources) Anemia of renal disease; 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: [Anemia in chronic kidney disease] 02-17-2018 Chronic Deficiency and other anemia (20 sources) Anemia; 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: [Anemia, unspecified] 02-17-2018 Episodic Diabetes mellitus with complications (20 sources) Peripheral neuropathy due to type 2 diabetes mellitus; 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: [Type 2 diabetes mellitus with diabetic neuropathy, unspecified] Onset: 2 Resolved: 2 Chronic Diabetes mellitus without complication (20 sources) Diabetes mellitus; 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: [Diabetes mellitus without mention of complication, type II or unspecified type, not stated as uncontrolled] Onset: 3 02-17-2018 Chronic Diabetes mellitus without complication (1 source) Diabetes mellitus without complication; 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: [Type 2 diabetes mellitus with diabetic chronic kidney disease] Onset: 3 Disorders of lipid metabolism (20 sources) Hyperlipidemia; 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: [Other and unspecified hyperlipidemia] Onset: 2 Resolved: 2 Chronic Esophageal disorders (20 sources) Gastroesophageal reflux disease; 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: [Gastro-esophageal reflux disease without esophagitis] 01-13-2024 Chronic Essential hypertension (20 sources) Essential hypertension; 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: [Unspecified essential hypertension] Onset: 2 Resolved: 2 Chronic Fluid and electrolyte disorders (20 sources) Hyponatremia; 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: [Hypo-osmolality and hyponatremia] 02-17-2018 Episodic Fracture of lower limb (20 sources) Closed fracture of phalanx of foot; 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: [Unspecified fracture of unspecified toe(s), initial encounter for closed fracture] 05-16-2021 Episodic Genitourinary symptoms and ill-defined conditions (20 sources) Abnormal urinalysis; 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: [Unspecified abnormal findings in urine] 02-17-2018 Episodic Gout and other crystal arthropathies (20 sources) Gout; 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: [Gout, unspecified] 01-13-2024 Chronic Hypertension with complications and secondary hypertension (20 sources) Hypertensive renal disease; 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: [Hypertensive chronic kidney disease with stage 1 through stage 4 chronic kidney disease, or unspecified chronic kidney disease] Onset: 2 Resolved: 2 Chronic Immunizations and screening for infectious disease (4 sources) Encounter for immunization Episodic Nausea and vomiting (20 sources) Intractable nausea and vomiting; 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: [Nausea with vomiting, unspecified] 02-17-2018 Episodic Nonspecific chest pain (20 sources) Chest pain; 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: [Chest pain, unspecified] Onset: 2 Resolved: 2 Episodic Nutritional deficiencies (20 sources) Vitamin D deficiency; 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: [Vitamin D deficiency, unspecified] Onset: 2 Resolved: 2 Chronic Osteoarthritis (20 sources) Osteoarthritis of joint of left hand; 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: [Primary osteoarthritis, left hand] Onset: 3 Chronic Other acquired deformities (1 source) Contracture, left ankle; 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: [CONTRACTURE LEFT ANKLE] Onset: 3 Chronic Other acquired deformities (20 sources) Lumbar spondylolisthesis; 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: [Spondylolisthesis, lumbar region] 01-13-2024 Episodic Other acquired deformities (20 sources) Spondylolisthesis; 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: [Spondylolisthesis, lumbar region] Episodic Other acquired deformities (2 sources) Spondylolisthesis, lumbar region Episodic Other aftercare (20 sources) Long-term current use of insulin; 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: [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] 01-13-2024 Episodic Other aftercare (20 sources) Drug therapy finding; 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: [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] 02-17-2018 Episodic Other connective tissue disease (20 sources) History of arthroplasty of left knee; 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: [Presence of left artificial knee joint] Chronic Other connective tissue disease (5 sources) Arthrodesis status; 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: [ARTHRODESIS STATUS] Onset: 2 Resolved: 2 Episodic Other connective tissue disease (20 sources) Necrotizing fasciitis; 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: [Necrotizing fasciitis] 02-17-2018 Episodic Other connective tissue disease (20 sources) Streptococcal necrotizing fasciitis; 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: [Necrotizing fasciitis] 02-17-2018 Episodic Other connective tissue disease (1 source) Trochanteric bursitis, right hip Episodic Other connective tissue disease (3 sources) Trochanteric bursitis, left hip Episodic Other connective tissue disease (8 sources) Bursitis of hip; 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: [Trochanteric bursitis, unspecified hip] 02-03-2024 Episodic Other connective tissue disease (4 sources) Trochanteric bursitis, unspecified hip; 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: [Enthesopathy of hip region] 02-04-2024 Episodic Other connective tissue disease (5 sources) Low back pain; 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: [Myalgia, other site] 03-17-2024 Episodic Other connective tissue disease (5 sources) Myalgia, other site; 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: [Lumbago] 03-17-2024 Episodic Other disorders of stomach and duodenum (20 sources) Disorder of function of stomach; 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: [Other diseases of stomach and duodenum] 02-17-2018 Episodic Other endocrine disorders (20 sources) Hyperparathyroidism; 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: [Hyperparathyroidism, unspecified] 01-13-2024 Chronic Other endocrine disorders (9 sources) Hyperparathyroidism, unspecified; 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: [Hyperparathyroidism, unspecified] Onset: 2 Resolved: 2 Chronic Other endocrine disorders (20 sources) Disorder of parathyroid gland; 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: [Disorder of parathyroid gland, unspecified] 01-13-2024 Chronic Other endocrine disorders (1 source) Disorder of parathyroid gland, unspecified Onset: 2 Resolved: 2 Chronic Other gastrointestinal disorders (20 sources) Stool DNA-based colorectal cancer screening positive; 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: [Other fecal abnormalities] 06-17-2019 Episodic Other lower respiratory disease (20 sources) Dyspnea; 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: [Shortness of breath] Episodic Other lower respiratory disease (2 sources) Pleurodynia Episodic Other nervous system disorders (20 sources) Carpal tunnel syndrome; 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: [Carpal tunnel syndrome, right upper limb] Chronic Other nervous system disorders (20 sources) Chronic pain; 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: [Other chronic pain] 02-03-2024 Chronic Other nervous system disorders (20 sources) Chronic intractable pain; 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: [Other chronic pain] Chronic Other nervous system disorders (20 sources) Neuropathy; 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: [Polyneuropathy, unspecified] Chronic Other nervous system disorders (19 sources) Other chronic pain; 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: [Other chronic pain] Onset: 1 Resolved: 1 Chronic Other nervous system disorders (3 sources) Polyneuropathy, unspecified Onset: 2 Resolved: 2 Chronic Other nervous system disorders (1 source) Hereditary motor and sensory neuropathy; 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 Other nervous system disorders (1 source) Other chronic pain; 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: [Other chronic pain] Onset: 3 Chronic Other non-traumatic joint disorders (20 sources) Charcot's joint of foot; 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: [Charcot's joint, unspecified ankle and foot] 05-16-2021 Chronic Other non-traumatic joint disorders (20 sources) Arthropathy associated with a neurological disorder; 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: [Charcot's joint, left ankle and foot] Chronic Other non-traumatic joint disorders (6 sources) Charcot's joint, left ankle and foot; 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: [CHARCOTS JOINT LEFT ANKLE AND FO] Onset: 3 Chronic Other non-traumatic joint disorders (1 source) Charcot's joint, right ankle and foot; 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: [CHARCOTS JOINT RIGHT ANKLE AND F] Onset: 3 Chronic Other non-traumatic joint disorders (20 sources) Pain in left knee; 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: [Pain in left knee] Episodic Other non-traumatic joint disorders (20 sources) Pain in right knee; 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: [Pain in right knee] Episodic Other non-traumatic joint disorders (20 sources) Arthralgia of the ankle and/or foot; 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: [Pain in left ankle and joints of left foot] 02-17-2018 Episodic Other nutritional; endocrine; and metabolic disorders (20 sources) Obesity; 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: [Obesity, unspecified] Onset: 4 02-22-2024 Chronic Other nutritional; endocrine; and metabolic disorders (20 sources) Hypercalcemia; 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: [Hypercalcemia] Chronic Other nutritional; endocrine; and metabolic disorders (20 sources) Hypomagnesemia; 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: [Hypomagnesemia] 01-13-2024 Chronic Other nutritional; endocrine; and metabolic disorders (7 sources) Hypomagnesemia; 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: [Disorders of magnesium metabolism] Onset: 4 Chronic Other nutritional; endocrine; and metabolic disorders (2 sources) Obesity, unspecified; 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: [Obesity, unspecified] Onset: 4 Chronic Other nutritional; endocrine; and metabolic disorders (2 sources) Body mass index (BMI) 37.0-37.9, adult; 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: [Body mass index (BMI) 37.0-37.9, adult] Onset: 4 Chronic Other nutritional; endocrine; and metabolic disorders (20 sources) Hyperuricemia; 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: [Hyperuricemia without signs of inflammatory arthritis and tophaceous disease] 01-13-2024 Episodic Other nutritional; endocrine; and metabolic disorders (20 sources) H/O: metabolic disorder; 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: [Personal history of other endocrine, nutritional and metabolic disease] 02-17-2018 Episodic Other screening for suspected conditions (not mental disorders or infectious disease) (20 sources) Cardiovascular finding; 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: [Abnormal findings on diagnostic imaging of other specified body structures] 03-27-2022 Chronic Other screening for suspected conditions (not mental disorders or infectious disease) (12 sources) Electrocardiogram abnormal; 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: [Nonspecific abnormal electrocardiogram [ECG] [EKG]] Onset: 4 Episodic Other upper respiratory infections (1 source) Acute pansinusitis, unspecified Episodic Pancreatic disorders (not diabetes) (20 sources) Pancreatitis; 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: [Acute pancreatitis without necrosis or infection, unspecified] 02-17-2018 Episodic Residual codes; unclassified (20 sources) Obstructive sleep apnea syndrome; 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: [Obstructive sleep apnea (adult)(pediatric)] Onset: 4 01-13-2024 Chronic Residual codes; unclassified (8 sources) Obstructive sleep apnea (adult) (pediatric); 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: [Obstructive sleep apnea (adult)(pediatric)] Onset: 2 Resolved: 2 Chronic Residual codes; unclassified (20 sources) Sleep apnea; 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: [Sleep apnea, unspecified] Chronic Residual codes; unclassified (2 sources) Sleep apnea, unspecified; 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: [SLEEP APNEA UNSPECIFIED] Onset: 3 Chronic Residual codes; unclassified (20 sources) Insomnia; 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: [Insomnia, unspecified] 01-13-2024 Episodic Residual codes; unclassified (2 sources) Other specified postprocedural states Onset: 2 Resolved: 2 Episodic Residual codes; unclassified (3 sources) Insomnia, unspecified Onset: 2 Resolved: 2 Episodic Septicemia (except in labor) (20 sources) Septic shock; 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: [Sepsis, unspecified organism] 02-17-2018 Episodic Spondylosis; intervertebral disc disorders; other back problems (20 sources) Cervical spondylosis without myelopathy; 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: [Spondylosis without myelopathy or radiculopathy, cervical region] Onset: 1 Resolved: 1 Chronic Spondylosis; intervertebral disc disorders; other back problems (20 sources) Neck pain; 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: [Cervicalgia] Onset: 1 Resolved: 1 Episodic Unclassified (1 source) CONTACT W/AND (SUSP) EXPOS COVID-19; 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: [CONTACT W/AND (SUSP) EXPOS COVID-19] Onset: 3 Unclassified (1 source) Encounter for screening for malignant neoplasm of colon; 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: [Encounter for screening for malignant neoplasm of colon] Onset: 3 Unclassified (1 source) Low back pain, unspecified; 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: [Low back pain, unspecified] Onset: 3 Past or Other Problems Problem Classification Problem Date Documented Da te Episodic/Chronic Acquired foot deformities (3 sources) Varus deformity, not elsewhere classified, left ankle; 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: [Valgus deformity, not elsewhere classified, left ankle] Onset: 01-06-2023 Episodic Cardiac dysrhythmias (6 sources) Ventricular premature beats; 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: [Other premature beats] Resolved: 02-20-2022 Chronic Mycoses (1 source) Tinea pedis; 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: [TINEA PEDIS] Onset: 01-06-2023 Episodic Other aftercare (1 source) 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; 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: [OT LOW [employer]ITUDE [employer] G[employer]NER CURRENT DRUG THERAPY] Onset: 01-06-2023 Episodic Other aftercare (1 source) residential (current) use of insulin; 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: [LOW ALTITUDE [employer] DEF[employer] G[employer]NER CURRENT USE OF INSULIN] Onset: 01-06-2023 Episodic Other aftercare (1 source) residential (current) use of aspirin; 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: [FDC CURRENT USE OF ASPIRIN] Onset: 01-06-2023 Episodic Other aftercare (1 source) 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; 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: [LOW ALTITUDE [employer] DEF[employer] G[employer]NER CURRNT USE ANTICOAGULANTS] Onset: 12-25-2022 Episodic Other bone disease and musculoskeletal deformities (1 source) Other specified disorders of bone density and structure, left ankle and foot; 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: [OTH D/O BONE DEN STRUCT LT ANK FOOT] Onset: 01-06-2023 Episodic Other connective tissue disease (4 sources) Pain in left foot; 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: [PAIN IN LEFT FOOT] Onset: 11-16-2022 Episodic Other connective tissue disease (1 source) Pain in right foot; 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: [PAIN IN RIGHT FOOT] Onset: 11-16-2022 Episodic Other connective tissue disease (1 source) Arthrodesis status; 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: [Arthrodesis status] Onset: 08-11-2023 Episodic Other lower respiratory disease (6 sources) Dyspnea on exertion; 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: [Other respiratory abnormalities] Resolved: 05-08-2022 Episodic Other lower respiratory disease (2 sources) Shortness of breath Onset: 02-07-2022 Resolved: 04-14-2022 Episodic Other non-traumatic joint disorders (4 sources) Pain in right ankle and joints of right foot; 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: [PAIN IN RIGHT ANKLE] Onset: 11-12-2022 Episodic Other non-traumatic joint disorders (1 source) Pain in left ankle and joints of left foot; 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: [PAIN IN LEFT ANKLE] Onset: 11-16-2022 Episodic Other nutritional; endocrine; and metabolic disorders (13 sources) Hyperuricemia without signs of inflammatory arthritis and tophaceous disease; 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: [Other abnormal blood chemistry] Onset: 12-03-2021 Resolved: 02-20-2022 Episodic Residual codes; unclassified (6 sources) History of palpitations; 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: [Personal history of other diseases of circulatory system] Resolved: 02-20-2022 Episodic Residual codes; unclassified (1 source) Acquired absence of other specified parts of digestive tract; 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: [ACQ ABSENCE OTH PART DIGESTV TRACT] Onset: 01-06-2023 Episodic Substance-related disorders (1 source) Opioid use, unspecified, uncomplicated Onset: 10-01-2021 Resolved: 10-01-2021 Episodic Unclassified (6 sources) Never smoked tobacco; 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: [Never a smoker] Unclassified (1 source) Cough R05.9 Onset: 12-03-2021 Resolved: 12-03-2021 Unclassified (1 source) Low back pain, unspecified M54.50 Unclassified (1 source) Onset: 02-22-2024 02-22-2024 Results Test Name Value Interpretation Reference Range Facility MR lumbar spine wo/w conon 0 03-05-2024 MR lumbar spine wo/w con [facility] [place] [address] MRI Report Signed Patient: Rita Cobb MR#: [id number] : 1960 Acct:[id number] Age/Sex: 63 / F ADM Date: 03/05/24 Loc: MR Room: Type: [facility] Attending Dr: Blas Ortiz MD Copies to: Blas Ortiz MD Ordering Provider: Blas Ortiz MD Date of Service: 03/05/24 MR/MR lumbar spine wo/w con: M47.26 - Other spondylosis with radiculopathy, lumbar region MRI lumbar spine with and without IV contrast. Reason for exam: Severe low back pain that radiates down pelvis and bilateral hips. History of lumbar spine surgery. COMPARISON: Lumbar spine series 08/11/2023. FINDINGS: Posterior hardware fixation is seen from the levels of L3-S1 with associated blooming artifact limiting evaluation. Vertebral body heights appear maintained. Spinal cord terminates in normal position without abnormal signal noted. No definitive evidence of arachnoiditis is seen. No paraspinal mass is noted. Visualized retroperitoneum demonstrates no acute findings. L1-L2: Mild facet joint degenerative changes. No posterior disc pathology. No significant canal or neural foraminal stenosis. L2-L3: Diffuse broad-based disc bulge is present with ligamentum flavum hypertrophy and facet joint degenerative changes causing moderate canal and bilateral neural foraminal stenosis. L3-L4 through L5-S1: Postoperative changes. No significant canal stenosis. Postcontrast series demonstrates no definitive abnormal enhancement. MR/MR lumbar spine wo/w con IMPRESSION: Diffuse broad-based disc bulge is present with ligamentum flavum hypertrophy and facet joint degenerative changes at the level of L2-L3 causing moderate canal and bilateral neural foraminal stenosis. Posterior hardware L3-S1 with associated blooming artifact limiting evaluation. No significant canal or neural foraminal stenosis is seen. No abnormal enhancement. Impression dictated by: Sudhir Brown Jr., D.O.03/05/2024 9:50 AM Dictation Location: [place] [address] Transcribed By: [facility] 03/05/24 0950 Dictated By: Sudhir Brown Jr, DO 03/05/24 0943 Signed By: 03/05/24 0950 Normal [facility] Albumin [Mass/volume] in Ser um or Plasma by Bromocresol green (BCG) dye binding methoOrdered By: Elpidio Whipple on 02-29-2024 Albumin BCG dye [Mass/Vol] 4.3 g/dL 3.5-5.7 [facility] Automated erythrocytes count in urine sediment (number/area)Ordered By: Elpidio Whipple on 02-29-2024 RBC Auto (Urine sed) [#/Area] 1-2 [HPF] 0-4 [facility] Automated leukocytes count i n urine sediment (number/area)Ordered By: Elpidio Whipple on 02-29-2024 WBC Auto (Urine sed) [#/Area] 5-9 [HPF] 0-4 [facility] Automated urine color determ inationOrdered By: Elpidio Whipple on 02-29-2024 Color (U) Dark yellow Critically abnormal Yellow [facility] Comment on above: Order Comment: Reaso n for Exam Chronic kidney disease, stage III (moderate);Hypertensive ch Name Collection Type:: Clean-Voided Midstream Performed By: #### C UU, ADDONUAPLUS #### [facility] [address] Bilirubin Test strip Ql (U)O rdered By: Elpidio Whipple on 02-29-2024 Bilirubin Ql (U) Negative Negative [facility] Calcium [Mass/volume] in Ser um or PlasmaOrdered By: Elpidio Whipple on 02-29-2024 Calcium [Mass/Vol] 9.8 mg/dL Normal 8.6-10.3 [facility] Comment on above: Order Comment: Reaso n for Exam Chronic kidney disease, stage III (moderate);Hypertensive ch FASTING. JKW Performed By: #### C UU, ADDONUAPLUS #### [facility] [address] [place] [address] [place] Carbon dioxide, total [Moles /volume] in Serum or PlasmaOrdered By: Elpidio Whipple on 02-29-2024 CO2 [Moles/Vol] 30.4 mmol/L Normal 21.0-31.0 [facility] Comment on above: Order Comment: Reaso n for Exam Chronic kidney disease, stage III (moderate);Hypertensive ch FASTING. JKW Performed By: #### C UU, ADDONUAPLUS #### [facility] [address] [place], [place] [id number] [place] Chloride [Moles/volume] in S john or PlasmaOrdered By: Elpidio Whipple on 02-29-2024 Chloride [Moles/Vol] 103 mmol/L Normal 98-107 [facility] Comment on above: Order Comment: Reaso n for Exam Chronic kidney disease, stage III (moderate);Hypertensive ch FASTING. JKW Performed By: #### C UU, ADDONUAPLUS #### [facility] [address] Creatinine [Mass/volume] in Serum or PlasmaOrdered By: Elpidio Whipple on 02-29-2024 Creatinine [Mass/Vol] 1.19 mg/dL Normal 0.60-1.20 [facility] Comment on above: Order Comment: Reaso n for Exam Chronic kidney disease, stage III (moderate);Hypertensive ch FASTING. JKW Performed By: #### C UU, ADDONUAPLUS #### [facility] [address] Creatinine [Mass/volume] in UrineOrdered By: Elpidio Whipple on 02-29-2024 Creatinine (U) [Mass/Vol] 101.0 mg/dL [facility] Comment on above: No reference range e stablished Dipstick and Microscopicon 0 02-29-2024 Appearance (U) Clear Normal Clear [facility] Comment on above: Order Comment: Reaso n for Exam Chronic kidney disease, stage III (moderate);Hypertensive ch Name Collection Type:: Clean-Voided Midstream Performed By: #### C UU, ADDONUAPLUS #### [facility] [address] [place] [address] Bacteria,Urine None Seen Normal None Seen [facility] Comment on above: Order Comment: Reaso n for Exam Chronic kidney disease, stage III (moderate);Hypertensive ch Name Collection Type:: Clean-Voided Midstream Performed By: #### C UU, ADDONUAPLUS #### [facility] [address] [place] [address] [place] Bilirubin,Urine Negative Normal Negative [facility] Comment on above: Order Comment: Reaso n for Exam Chronic kidney disease, stage III (moderate);Hypertensive ch Name Collection Type:: Clean-Voided Midstream Performed By: #### C UU, ADDONUAPLUS #### [facility] [address] Glucose Ql (U) Normal Normal Normal [facility] Comment on above: Order Comment: Reaso n for Exam Chronic kidney disease, stage III (moderate);Hypertensive ch Name Collection Type:: Clean-Voided Midstream Performed By: #### C UU, ADDONUAPLUS #### [facility] [address] [place] [address] [place] Hyaline Casts,Urine 0-8 Normal 0-8 [facility] Comment on above: Order Comment: Reaso n for Exam Chronic kidney disease, stage III (moderate);Hypertensive ch Name Collection Type:: Clean-Voided Midstream Result Comment: PERF ORMED BY: [place] [address] PATHOLOGIST SHAPING MACHINE OPERATOR JE SHELLEY M.D. Performed By: #### C UU, ADDONUAPLUS #### [address] Ketones Ql (U) Negative Normal Negative [facility] Comment on above: Order Comment: Reaso n for Exam Chronic kidney disease, stage III (moderate);Hypertensive ch Name Collection Type:: Clean-Voided Midstream Performed By: #### C UU, ADDONUAPLUS #### [address] Leukocyte esterase Test strip Ql (U) 2+ High Negative [facility] Comment on above: Order Comment: Reaso n for Exam Chronic kidney disease, stage III (moderate);Hypertensive ch Name Collection Type:: Clean-Voided Midstream Performed By: #### C UU, ADDONUAPLUS #### [place] [address] [place] Nitrite,Urine Negative Normal Negative [facility] Comment on above: Order Comment: Reaso n for Exam Chronic kidney disease, stage III (moderate);Hypertensive ch Name Collection Type:: Clean-Voided Midstream Performed By: #### C UU, ADDONUAPLUS #### [place] [address] [place] Occult Blood,Urine Negative Normal Negative [facility] Comment on above: Order Comment: Reaso n for Exam Chronic kidney disease, stage III (moderate);Hypertensive ch Name Collection Type:: Clean-Voided Midstream Performed By: #### C UU, ADDONUAPLUS #### [facility] [address] RBC,Urine 1-2 Normal 0-4 [facility] Comment on above: Order Comment: Reaso n for Exam Chronic kidney disease, stage III (moderate);Hypertensive ch Name Collection Type:: Clean-Voided Midstream Performed By: #### C UU, ADDONUAPLUS #### [address] Specificy [place],Urine 1.019 Normal 1.001-1.030 [facility] Comment on above: Order Comment: Reaso n for Exam Chronic kidney disease, stage III (moderate);Hypertensive ch Name Collection Type:: Clean-Voided Midstream Performed By: #### C UU, ADDONUAPLUS #### [facility] [address] [place] [address] Squamous Epithelial Cell,Urine 10-19 High 0-2 [facility] Comment on above: Order Comment: Reaso n for Exam Chronic kidney disease, stage III (moderate);Hypertensive ch Name Collection Type:: Clean-Voided Midstream Performed By: #### C UU, ADDONUAPLUS #### [address] Urobilinogen,Urine Normal Normal Normal [facility] Comment on above: Order Comment: Reaso n for Exam Chronic kidney disease, stage III (moderate);Hypertensive ch Name Collection Type:: Clean-Voided Midstream Performed By: #### C UU, ADDONUAPLUS #### [place] [address] [place] WBC,Urine 5-9 High 0-4 [facility] Comment on above: Order Comment: Reaso n for Exam Chronic kidney disease, stage III (moderate);Hypertensive ch Name Collection Type:: Clean-Voided Midstream Performed By: #### C UU, ADDONUAPLUS #### [address] [address] [place] Erythrocyte distribution wid th [Ratio] by Automated countOrdered By: Elpidio Whipple on 02-29-2024 Erythrocyte distribution width (RBC) [Ratio] 12.9 % Normal 11.9-15.3 [facility] Comment on above: Order Comment: FASTI NG. JKW Performed By: #### C MP, LIPID #### [facility] [address] Erythrocytes [#/volume] in B lood by Automated countOrdered By: Elpidio Whipple on 02-29-2024 RBC (Bld) [#/Vol] 4.61 10*6/uL Normal 3.60-5.00 [facility] Comment on above: Order Comment: FASTI NG. JKW Performed By: #### C MP, LIPID #### [facility] [address] Glucose [Mass/volume] in Ser um or PlasmaOrdered By: Elpidio Whipple on 02-29-2024 Glucose [Mass/Vol] 164 mg/dL High 70-100 [facility] Comment on above: ADA recommended refe rence rangeRandom Glucose Reference Range is dependent on time and content of last meal. Glucose of more than 200 mg/dL in a nonstressed, ambulatory subject supports the diagnosis of Diabetes Mellitus. Order Comment: Reaso n for Exam Chronic kidney disease, stage III (moderate);Hypertensive ch FASTING. JKW Result Comment: [place] Glucose Reference Range is dependent on time and content of last meal. Glucose of more than 200 mg/dL in a nonstressed, ambulatory subject supports the diagnosis of Diabetes Mellitus. ADA recommended reference range Performed By: #### C UU, ADDONUAPLUS #### [facility] [address] [place] [address] [place] Hematocrit [Volume Fraction] of Blood by Automated countOrdered By: Elpidio Whipple on 02-29-2024 Hematocrit (Bld) [Volume fraction] 39.7 % Normal 34.0-46.4 [facility] Comment on above: Order Comment: FASTI NG. JKW Performed By: #### C MP, LIPID #### [facility] [address] Hemoglobin [Mass/volume] in BloodOrdered By: Elpidio Whipple on 02-29-2024 Hemoglobin (Bld) [Mass/Vol] 13.4 g/dL Normal 11.8-15.4 [facility] Comment on above: Order Comment: FASTI NG. JKW Performed By: #### C MP, LIPID #### [facility] [address] Hemogram CBC Without Diffon 02-29-2024 Mean Corpuscular HGB Conc 33.8 g/dL Normal 32.0-35.0 [facility] Comment on above: Order Comment: FASTI NG. JKW Performed By: #### C MP, LIPID #### [address] WBC (Bld) [#/Vol] 4.5 10*3/uL Normal 3.8-11.6 [facility] Comment on above: Order Comment: FASTI NG. JKW Performed By: #### C MP, LIPID #### [address] Ketones Auto test strip (U) [Mass/Vol]Ordered By: Elpidio Whipple on 02-29-2024 Ketones (U) [Mass/Vol] Negative Negative [facility] - UrinalysisOrder ed By: Elpidio Whipple on 02-29-2024 Hyaline casts LM Ql (Urine sed) 0-8 [LPF] 0-8 [facility] Leukocytes [#/volume] correc praneeth for nucleated erythrocytes in Blood by Automated counOrdered By: Elpidio Whipple on 02-29-2024 WBC corrected for nucl RBC Auto (Bld) [#/Vol] 4.5 10*3/uL 3.8-11.6 [facility] MCH [Entitic mass] by Automa praneeth countOrdered By: Elpidio Whipple on 02-29-2024 MCH (RBC) [Entitic mass] 29.1 pg Normal 24.7-34.3 [facility] Comment on above: Order Comment: FASTI NG. JKW Performed By: #### C MP, LIPID #### [facility] [address] MCHC Auto (RBC) [Mass/Vol]Or dered By: Elpidio Whipple on 02-29-2024 MCHC (RBC) [Mass/Vol] 33.8 g/dL 32.0-35.0 [facility] MCV [Entitic volume] by Auto mated countOrdered By: Elpidio Whipple on 02-29-2024 MCV (RBC) [Entitic vol] 86.2 fL Normal 80-100 [facility] Comment on above: Order Comment: FASTI NG. JKW Performed By: #### C MP, LIPID #### [facility] [address] [place] [address] Magnesium [Mass/volume] in S john or PlasmaOrdered By: Elpidio Whipple on 02-29-2024 Magnesium [Mass/Vol] 1.6 mg/dL Low 1.9-2.7 [facility] Comment on above: Order Comment: Reaso n for Exam Chronic kidney disease, stage III (moderate);Hypertensive ch FASTING. JKW Performed By: #### C UU, ADDONUAPLUS #### [facility] [address] [place] [address] Nitrite Test strip Ql (U)Ord ered By: Elpidio Whipple on 02-29-2024 Nitrite Ql (U) Negative Negative [facility] No Panel InformationOrdered By: Elpidio Whipple on 02-29-2024 Estimated GFR (CKD-EPI) 51.377 mL/Min [facility] Creatinine Clearance (Chem N/A [facility] Parathyrin.intact [Mass/volu me] in Serum or PlasmaOrdered By: Elpidio Whipple on 02-29-2024 Parathyrin.intact [Mass/Vol] 53.1 pg/mL [facility] Parathyroid Hormone Intacton 02-29-2024 Parathyroid Hormone Intact 53.1 pg/mL Normal [facility] Comment on above: Order Comment: Reaso n for Exam Chronic kidney disease, stage III (moderate);Hypertensive ch Result Comment: PERF ORMED BY: [place] [address] PATHOLOGIST SHAPING MACHINE OPERATOR JE SHELLEY M.D. Performed By: #### P TH #### [place] [address] [place] Phosphate [Mass/volume] in S john or PlasmaOrdered By: Elpidio Sole on 02-29-2024 Phosphate [Mass/Vol] 2.8 mg/dL Normal 2.5-4.5 [facility] Comment on above: Order Comment: Reaso n for Exam Chronic kidney disease, stage III (moderate);Hypertensive ch FASTING. JKW Performed By: #### C UU, MIMIUAPLUS #### [address] Platelet mean volume [Entiti c volume] in Blood by Automated countOrdered By: Elpidio Sole on 02-29-2024 Platelet mean volume (Bld) [Entitic vol] 9.5 fL Normal 6.3-10.7 [facility] Comment on above: Order Comment: FASTI NG. JKW Result Comment: PERF ORMED BY: [place] [address] PATHOLOGIST SHAPING MACHINE OPERATOR JE SHELLEY M.D. Performed By: #### C MP, LIPID #### [facility] [address] [place] [address] [place] Platelets [#/volume] in Bloo d by Automated countOrdered By: Elpidio Sole on 02-29-2024 Platelets (Bld) [#/Vol] 174 10*3/uL Normal 150-450 [facility] Comment on above: Order Comment: FASTI NG. JKW Performed By: #### C MP, LIPID #### [facility] [address] [place] [address] [place] Potassium [Moles/volume] in Serum or PlasmaOrdered By: Elpidio Sole on 02-29-2024 Potassium [Moles/Vol] 4.6 mmol/L Normal 3.5-5.1 [facility] Comment on above: Order Comment: Reaso n for Exam Chronic kidney disease, stage III (moderate);Hypertensive ch FASTING. JKW Performed By: #### C UU, ADDONUAPLUS #### [facility] [address] Protein Creat Ratio Ur Rando mon 02-29-2024 Creatinine, Urine (Random) 101.0 mg/dL Normal [facility] Comment on above: Order Comment: Reaso n for Exam Chronic kidney disease, stage III (moderate);Hypertensive ch Result Comment: No r eference range established Performed By: #### C UU, ADDONUAPLUS #### [address] Urine Protein/Creatinine Ratio 426 mg/g{Cre} High 0-200 [facility] Comment on above: Order Comment: Reaso n for Exam Chronic kidney disease, stage III (moderate);Hypertensive ch Result Comment: PERF ORMED BY: [place] [address] PATHOLOGIST SHAPING MACHINE OPERATOR JE SHELLEY M.D. Performed By: #### C UU, ADDONUAPLUS #### [address] Protein [Mass/volume] in Uri neOrdered By: Elpidio Whipple on 02-29-2024 Protein (U) [Mass/Vol] 43 mg/dL High 0-9 [facility] Comment on above: Order Comment: Reaso n for Exam Chronic kidney disease, stage III (moderate);Hypertensive ch Performed By: #### C UU, ADDONUAPLUS #### [address] Renal Function Panelon 02-28 Albumin [Mass/Vol] 4.3 g/dL Normal 3.5-5.7 [facility] Comment on above: Order Comment: Reaso n for Exam Chronic kidney disease, stage III (moderate);Hypertensive ch FASTING. JKW Performed By: #### C UU, ADDONUAPLUS #### [place] [id number] [place] GFR/1.73 sq M.predicted MDRD (S/P/Bld) [Vol rate/Area] 51.377 mL/min/{1.73_m2} Normal [facility] Comment on above: Order Comment: Reaso n for Exam Chronic kidney disease, stage III (moderate);Hypertensive ch FASTING. JKW Performed By: #### C UU, ADDONUAPLUS #### [facility] [address] Serum or plasma anion gap de terminationOrdered By: Elpidio Whipple on 02-29-2024 Anion gap [Moles/Vol] 11.2 mmol/L Normal 6.0-15.0 [facility] Comment on above: Order Comment: Reaso n for Exam Chronic kidney disease, stage III (moderate);Hypertensive ch FASTING. JKW Performed By: #### C UU, ADDONUAPLUS #### [facility] [address] Sodium [Moles/volume] in Ser um or PlasmaOrdered By: Elpidio Whipple on 02-29-2024 Sodium [Moles/Vol] 140 mmol/L Normal 136-145 [facility] Comment on above: Order Comment: Reaso n for Exam Chronic kidney disease, stage III (moderate);Hypertensive ch FASTING. JKW Performed By: #### C UU, ADDONUAPLUS #### [facility] [address] Specific gravity Auto test s trip (U) [Rel density]Ordered By: Elpidio Whipple on 02-29-2024 Specific gravity (U) [Rel density] 1.019 1.001-1.030 [facility] Squamous epithelial cells de tection in urine sediment by light microscopyOrdered By: Elpidio Whipple on 02-29-2024 Epithelial cells.squamous LM Ql (Urine sed) 10-19 [HPF] 0-2 [facility] Urate [Mass/volume] in Serum or PlasmaOrdered By: Elpidio Whipple on 02-29-2024 Urate [Mass/Vol] 7.1 mg/dL High 2.3-6.6 [facility] Comment on above: Order Comment: Reaso n for Exam Chronic kidney disease, stage III (moderate);Hypertensive ch FASTING. JKW Performed By: #### C UU, ADDONUAPLUS #### [facility] [address] [place] [address] Urea nitrogen [Mass/volume] in Serum or PlasmaOrdered By: Elpidio Whipple on 02-29-2024 Urea nitrogen [Mass/Vol] 29 mg/dL High 7-25 [facility] Comment on above: Order Comment: Reaso n for Exam Chronic kidney disease, stage III (moderate);Hypertensive ch FASTING. JKW Performed By: #### C UU, ADDONUAPLUS #### [facility] [address] [place] [address] Urine Cultureon 02-29-2024 Bacteria identified Cx Nom (U) >100,000 colonies/ml mixed bacterial skin contaminants 2 Days PERFORMED BY: [place] [address] PATHOLOGIST SHAPING MACHINE OPERATOR JE SHELLEY M.D. Normal [facility] Comment on above: Performed By: #### C UU, ADDONUAPLUS #### [facility] [address] [place] [address] Urine bacteria detection by automated methodOrdered By: Elpidio Whipple on 02-29-2024 Bacteria Auto Ql (U) None seen None Seen [facility] Urine clarity by refractomet ry automatedOrdered By: Elpidio Whipple on 02-29-2024 Clarity Refractometry automated (U) Clear Clear [facility] Urine culture routineOrdered By: Elpidio Whipple on 02-29-2024 Bacteria identified Cx Nom (U) 2 Days [facility] Urine glucose measurement by automated test strip (mass/volume)Ordered By: Elpidio Whipple on 02-29-2024 Glucose Auto test strip (U) [Mass/Vol] Normal mg/dL Normal [facility] Urine hemoglobin detection b y automated test stripOrdered By: Elpidio Whipple on 02-29-2024 Hemoglobin Auto test strip Ql (U) Negative Negative [facility] Urine leukocyte esterase det ection by automated test stripOrdered By: Elpidio Whipple on 02-29-2024 Leukocyte esterase Auto test strip Ql (U) 2+ Negative [facility] Urine pH measurement by auto mated test stripOrdered By: Elpidio Whipple on 02-29-2024 pH (U) 5.5 [pH] Normal 5.0-9.0 [facility] Comment on above: Order Comment: Reaso n for Exam Chronic kidney disease, stage III (moderate);Hypertensive ch Name Collection Type:: Clean-Voided Midstream Performed By: #### C UU, ADDONUAPLUS #### [facility] [address] Urine protein measurement by automated test strip (mass/volume)Ordered By: Elpidio Whipple on 02-29-2024 Protein (U) [Mass/Vol] 30 mg/dL High Negative [facility] Comment on above: Order Comment: Reaso n for Exam Chronic kidney disease, stage III (moderate);Hypertensive ch Name Collection Type:: Clean-Voided Midstream Performed By: #### C UU, ADDONUAPLUS #### [facility] [address] Urine protein/creatinine rat ioOrdered By: Elpidio Whipple on 02-29-2024 Protein/Creatinine (U) [Ratio] 426 mg/g{Cre} 0-200 [facility] Urobilinogen Auto test strip (U) [Mass/Vol]Ordered By: Elpidio Whipple on 02-29-2024 Urobilinogen (U) [Mass/Vol] Normal mg/dL Normal [facility] Vitamin D 25 Hydroxy Totalon 02-29-2024 Vitamin D 25 Hydroxy Total 48.0 ng/mL Normal 30-100 [facility] Comment on above: Order Comment: Reaso n for Exam Chronic kidney disease, stage III (moderate);Hypertensive ch FASTING. JKW Result Comment: SADE MIN D STATUS 25(OH)VITAMIN D RANGE (ng/mL) Deficient <20 Insufficient 20 to <30 Sufficient 30 to 100 Reference: Nayeli MF,Hannah NC, Jose GILBERT, et al. Evaluation,treatment, and prevention of vitamin D deficiency; an Endocrine Society clinical practice guideline. JCEM. 2010; 96(7):1911-30. PERFORMED BY: [place] [address] PATHOLOGIST SHAPING MACHINE OPERATOR JE SHELLEY M.D. Performed By: #### C BENJI, PEYTON #### [address] Vitamin D+Metabolites [Mass/ volume] in Serum or PlasmaOrdered By: Elpidio Whipple on 02-29-2024 Vitamin D+Metabolites [Mass/Vol] 48.0 ng/mL 30-100 [facility] Comment on above: VITAMIN D STATUS 25( OH)VITAMIN D RANGE (ng/mL) Deficient <20 Insufficient 20 to <30Sufficient 30 to 100Reference: Nayeli MF,Hannah SCHREIBER, Jose GILBERT, et al. Evaluation,treatment, and prevention of vitamin D deficiency; an Endocrine Society clinical practice guideline. JCEM. 2010; 96(7):1911-30. RSVon 12-30-2023 RSV Ag IA Ql (Unsp spec) Negative [facility] Other XR chest 2V*on 12-30-2023 XR chest 2V* [facility] [place] [address] [place] [address] XRay Report Signed Patient: Rita Cobb MR#: [id number] : 1960 Acct:[id number] Age/Sex: 63 / F ADM Date: 12/30/23 Loc: [facility] Room: Type: [facility] Attending Dr: Charan Casey DO Copies to: Charan Casey DO Ordering Provider: Charan Casey DO Date of Service: 12/30/23 XR/XR chest 2V*: Asthmatic bronchitis Chest 2 views CLINICAL HISTORY: Productive cough for 2 months. COMPARISON: None FINDINGS: Heart appears normal in size. Lungs are clear. No free air. XR/XR chest 2V* IMPRESSION: NO ACUTE CARDIOPULMONARY ABNORMALITY. Impression dictated by: Sudhir Brown Jr., D.ODerek12/30/2023 3:17 PM Dictation Location: [place] [address] Transcribed By: [facility] 12/30/231516 Dictated By: Sudhir Brown Jr, 12/30/231515 Signed By: 12/30/231516 Normal [facility] Alanine aminotransferase [En zymatic activity/volume] in Serum or PlasmaOrdered By: Charan Casey on 11-26-2023 ALT [Catalytic activity/Vol] 16 U/L Normal 7-52 [facility] Comment on above: Order Comment: FASTI RAKESH. JKW Performed By: #### C MP, LIPID #### [facility] [address] Albumin [Mass/volume] in Ser um or Plasma by Bromocresol green (BCG) dye binding methoOrdered By: Charan Casey on 11-26-2023 Albumin BCG dye [Mass/Vol] 4.2 g/dL 3.5-5.7 [facility] Alkaline phosphatase [Enzyma tic activity/volume] in Serum or PlasmaOrdered By: Charan Casey on 11-26-2023 ALP [Catalytic activity/Vol] 65 U/L Normal 34-104 [facility] Comment on above: Order Comment: FASTI NG. JKW Performed By: #### C MP, LIPID #### [facility] [address] [place] [address] [place] Aspartate aminotransferase [ Enzymatic activity/volume] in Serum or PlasmaOrdered By: Charan Casey on 11-26-2023 AST [Catalytic activity/Vol] 16 U/L Normal 13-39 [facility] Comment on above: Order Comment: FASTI NG. JKW Performed By: #### C MP, LIPID #### [facility] [address] [place] [address] [place] Bilirubin.total [Mass/volume ] in Serum or PlasmaOrdered By: Charan Casey on 11-26-2023 Bilirubin [Mass/Vol] 0.6 mg/dL Normal 0.3-1.0 [facility] Comment on above: Order Comment: FASTI NG. JKW Performed By: #### C MP, LIPID #### [facility] [address] [place] [address] [place] Calcium [Mass/volume] in Ser um or PlasmaOrdered By: Charan Casey on 11-26-2023 Calcium [Mass/Vol] 9.8 mg/dL Normal 8.6-10.3 [facility] Comment on above: Order Comment: NAS EDEN JKW Performed By: #### C MP, LIPID #### [facility] [address] [place] [address] [place] Carbon dioxide, total [Moles /volume] in Serum or PlasmaOrdered By: Charan Casey on 11-26-2023 CO2 [Moles/Vol] 34.6 mmol/L High 21.0-31.0 [facility] Comment on above: Order Comment: NAS JamaKW Performed By: #### C MP, LIPID #### [facility] [address] [place] [address] [place] Chloride [Moles/volume] in S john or PlasmaOrdered By: Charan Casey on 11-26-2023 Chloride [Moles/Vol] 101 mmol/L Normal 98-107 [facility] Comment on above: Order Comment: FASTFoster CAMERON. JKW Performed By: #### C MP, LIPID #### [facility] [address] [place] [address] [place] Cholesterol [Mass/volume] in Serum or PlasmaOrdered By: Charan Casey on 11-26-2023 Cholesterol [Mass/Vol] 140 mg/dL Normal 140-200 [facility] Comment on above: Chol less than 200 m g/dl low riskChol 201-239 mg/dl borderline riskChol 240 mg/dl and greater high risk Order Comment: NAS EDEN JKW Result Comment: Chol less than 200 mg/dl low risk Chol 201-239 mg/dl borderline risk Chol 240 mg/dl and greater high risk Performed By: #### C MP, LIPID #### [facility] [address] [place] [address] [place] Cholesterol in LDL Calc [Mas s/Vol]Ordered By: Charan Casey on 11-26-2023 Cholesterol in LDL [Mass/Vol] 56 mg/dL 0-100 [facility] Comment on above: LDL ATP III CLASSIFI CATIONLDL less than 100 mg/dL OptimalLDL 100-129 mg/dL Near or above optimalLDL 130-159 mg/dL Borderline highLDL 160-189 mg/dL HighLDL greater than 189 mg/dL Very high Cholesterol in VLDL Calc [Ma ss/Vol]Ordered By: Charan Casey on 11-26-2023 Cholesterol in VLDL [Mass/Vol] 45 mg/dL [facility] Comprehensive Metabolic Pane alma 11-26-2023 Albumin [Mass/Vol] 4.2 g/dL Normal 3.5-5.7 [facility] Comment on above: Order Comment: FASTI NG. JKW Performed By: #### C MP, LIPID #### [facility] [address] [place] [address] [place] GFR/1.73 sq M.predicted MDRD (S/P/Bld) [Vol rate/Area] 48.432 mL/min/{1.73_m2} Normal [facility] Comment on above: Order Comment: FASTI NG. JKW Performed By: #### C MP, LIPID #### [facility] [address] [place] [id number] [place] Creatinine [Mass/volume] in Serum or PlasmaOrdered By: Charan Casey on 11-26-2023 Creatinine [Mass/Vol] 1.25 mg/dL High 0.60-1.20 [facility] Comment on above: Order Comment: FASTI NG. JKW Performed By: #### C MP, LIPID #### [facility] [address] [place] [id number] [place] Glucose [Mass/volume] in Ser um or PlasmaOrdered By: Charan Casey on 11-26-2023 Glucose [Mass/Vol] 122 mg/dL High 70-100 [facility] Comment on above: ADA recommended refe rence rangeRandom Glucose Reference Range is dependent on time and content of last meal. Glucose of more than 200 mg/dL in a nonstressed, ambulatory subject supports the diagnosis of Diabetes Mellitus. Order Comment: FASTI NG. JKW Result Comment: Farner om Glucose Reference Range is dependent on time and content of last meal. Glucose of more than 200 mg/dL in a nonstressed, ambulatory subject supports the diagnosis of Diabetes Mellitus. ADA recommended reference range Performed By: #### C MP, LIPID #### [facility] [address] [place] [id number] [facility] Lipid Panelon 11-26-2023 LDL Cholesterol,Calculated 56 mg/dL Normal 0-100 [facility] Comment on above: Order Comment: FASTFoster CAMERON. JKW Result Comment: LDL ATP III CLASSIFICATION LDL less than 100 mg/dL Optimal LDL 100-129 mg/dL Near or above optimal LDL 130-159 mg/dL Borderline high LDL 160-189 mg/dL High LDL greater than 189 mg/dL Very high Performed By: #### C MP, LIPID #### [facility] [address] Triglyceride w/Reflex 227 mg/dL High 0-149 [facility] Comment on above: Order Comment: FASTFoster CAMERON. JKW Result Comment: TRIG ATP III CLASSIFICATION TRIG less than 150 mg/dL Normal TRIG 150-199 mg/dL Borderline high TRIG 200-500 mg/dL High TRIG greater than 500 mg/dL Very high Standard traceable to the Center for Disease Conrtrol and Prevention (CDC) test method. Performed By: #### C MP, LIPID #### [facility] [address] VLDL CHOLESTEROL 45 mg/dL Normal [facility] Comment on above: Order Comment: FASTFoster EDEN JKW Performed By: #### C MP, LIPID #### [facility] [address] No Panel InformationOrdered By: Charan Casey on 11-26-2023 Estimated GFR (CKD-EPI) 48.432 mL/Min [facility] Creatinine Clearance (Chem N/A [facility] Potassium [Moles/volume] in Serum or PlasmaOrdered By: Charan Casey on 11-26-2023 Potassium [Moles/Vol] 4.6 mmol/L Normal 3.5-5.1 [facility] Comment on above: Order Comment: FASTFoster EDEN JKW Performed By: #### C MP, LIPID #### [facility] [address] [place] [id number] [place] Protein [Mass/volume] in Ser um or PlasmaOrdered By: Charan Casey on 11-26-2023 Protein [Mass/Vol] 6.8 g/dL Normal 6.4-8.9 [facility] Comment on above: Order Comment: FASTFoster CAMERON. JKW Performed By: #### C MP, LIPID #### [facility] [address] Serum globulin measurement b y calculation (mass/volume)Ordered By: Charan Casey on 11-26-2023 Globulin (S) [Mass/Vol] 2.6 g/dL Normal [facility] Comment on above: Order Comment: FASTFoster CAMERON. JKW Performed By: #### C MP, LIPID #### [address] Serum or plasma albumin/glob ulin mass ratioOrdered By: Charan Casye on 11-26-2023 Albumin/Globulin [Mass ratio] 1.6 {ratio} Normal [facility] Comment on above: Order Comment: FASTI NG. JKW Performed By: #### C MP, LIPID #### [facility] [address] [place] [address] Serum or plasma anion gap de terminationOrdered By: Charan Casey on 11-26-2023 Anion gap [Moles/Vol] 9.0 mmol/L Normal 6.0-15.0 [facility] Comment on above: Order Comment: FASTI NG. JKW Performed By: #### C MP, LIPID #### [facility] [address] [place] [address] Serum or plasma high density lipoprotein (HDL) cholesterol measurementOrdered By: Charan Casey on 11-26-2023 Cholesterol in HDL [Mass/Vol] 39 mg/dL Normal 23-92 [facility] Comment on above: HDL CHOL ATP-III CLA SSIFICATION Cardiovascular RiskHDL > or equal to 60 mg/dL LOWHDL < 40 mg/dL HIGH Order Comment: FASTFoster CAMERON. JKW Result Comment: HDL CHOL ATP-III CLASSIFICATION Cardiovascular Risk HDL > or equal to 60 mg/dL LOW HDL < 40 mg/dL HIGH Performed By: #### C MP, LIPID #### [address] Serum or plasma total choles terol/high density lipoprotein (HDL) cholesterol mass ratOrdered By: Cahran Casey on 11-26-2023 Cholesterol.total/Mary sterol in HDL [Mass ratio] 3.6 {ratio} Normal <5.0 [facility] Comment on above: Order Comment: NAS OLSONW Result Comment: PERF ORMED BY: [place] [address] PATHOLOGIST SHAPING MACHINE OPERATOR JE SHELLEY M.D. Performed By: #### C MP, LIPID #### [address] Sodium [Moles/volume] in Ser um or PlasmaOrdered By: Charan Casey on 11-26-2023 Sodium [Moles/Vol] 140 mmol/L Normal 136-145 [facility] Comment on above: Order Comment: NAS JamaKW Performed By: #### C MP, LIPID #### [address] Triglyceride [Mass/volume] i n Serum or PlasmaOrdered By: Charan Casey on 11-26-2023 Triglyceride [Mass/Vol] 227 mg/dL 0-149 [facility] Comment on above: TRIG ATP III CLASSIF ICATIONTRIG less than 150 mg/dL NormalTRIG 150-199 mg/dL Borderline highTRIG 200-500 mg/dL High TRIG greater than 500 mg/dL Very highStandard traceable to the Center for Disease Conrtrol and Prevention (CDC) test method. Urea nitrogen [Mass/volume] in Serum or PlasmaOrdered By: Charan Casey on 11-26-2023 Urea nitrogen [Mass/Vol] 32 mg/dL High 7-25 [facility] Comment on above: Order Comment: NAS JamaKW Performed By: #### C MP, LIPID #### [address] Capillary blood glucose gautam urement by glucometer (mass/volume)Ordered By: Yasmeen Treadwell on 10-06-2023 Glucose [Mass/Vol] 150 mg/dL Normal [facility] Comment on above: Random Glucose Refer ence Range is dependent on time and content of last meal. Glucose of more than 200 mg/dL in a nonstressed, ambulatory subject supports the diagnosis of Diabetes Mellitus. Result Comment: Farner Glucose Reference Range is dependent on time and content of last meal. Glucose of more than 200 mg/dL in a nonstressed, ambulatory subject supports the diagnosis of Diabetes Mellitus. PERFORMED BY: [facility] [address] [facility] [place] [address] PATHOLOGIST SHAPING MACHINE OPERATOR JE SHELLEY M.D. Performed By: #### PEYTON VOSS #### [facility] [address] 10-06-2023 L - -------- Specimen: [id number] Received: 10/06/23 Status: ROSLYN Raul Num: [id number] Spec Type: Surgical Subm Dr: Yasmeen Treadwell MD Tissues: A Colon Biopsy (CECAL POLYPS) B Colon Biopsy (ASC POLYP) Procedures: HE/4, Gross/Micro L4/2 -------- Age/ Patient Sex Location Account Attending Physician -------- Rita Cobb 62/F [id number] Yasmeen Treadwell MD -------- SPEC NUM: [id number] RECD: 10/06/23 STATUS: ROSLYN CORREA NUM: [id number] ASH: 10/06/23- SUBM DR: Yasmeen Treadwell MD ENTERED: 10/06/23-1010 [facility] DR: MARIANNA TYPE: Surgical DEPT: S ORDERED: HE/4, Gross/Micro L4/2 ORDERED: HE/4, Gross/Micro L4/2 Pathological Diagnosis A. Cecal polyps biopsy: - Tubular adenomas in all fragments without distinct high-grade feature B. Ascending colon polyp biopsy: - Small serrated polyp without obvious adenomatous glandular dysplasia Clinical Information Screening Gross Description A. Received in formalin labeled with the patient's name, date of and cecal polyps are four connors tissues ranging from 0.2 cm to 0.5 x 0.4 x 0.2 cm. Entirely submitted in one cassette labeled A1. B. Received in formalin labeled with the patient's name, date of and ascending polyp is one connors tissue measuring 0.7 x 0.5 x 0.2 cm. Entirely submitted in one cassette labeled B1. -------- Specimen: [id number] Received: 10/06/23 Status: ONOFRERadha Correa Num: [id number] Spec Type: Surgical Subm Dr: Yasmeen Treadwell MD Tissues: A Colon Biopsy (CECAL POLYPS) B Colon Biopsy (ASC POLYP) Procedures: EUNICE Gross/Micro L4/2 -------- Patient: Rita Cobb [id number] (Continued) -------- Specimen: [id number] Received: 10/06/23 (Continued) Signed (signature on file) Mi Soto MD 10/07/23 1510 -------- Specimen: [id number] Received: 10/06/23 Status: ONOFRERadha Req Num: [id number] Spec Type: Surgical Subm Dr: Yasmeen Treadwell MD Tissues: A Colon Biopsy (CECAL POLYPS) B Colon Biopsy (ASC POLYP) Procedures: Nery DAWSON/Micro L4/2 -------- Patient: Rita Cobb [id number] (Continued) -------- Specimen: [id number] Received: 10/06/23 (Continued) Microscopic Description A. Two H E slides reviewed. The microscopic examination confirms the diagnosis. B. Two H E slides reviewed. The microscopic examination confirms the diagnosis. CPT Codes 11512o3 -------- -------- Specimen: [id number] Received: 10/06/23 Status: ROSLYN Correa Num: [id number] Spec Type: Surgical Subm Dr: Yasmeen Treadwell MD Tissues: A Colon Biopsy (CECAL POLYPS) B Colon Biopsy (ASC POLYP) Procedures: HE/4, Gross/Micro L4/2 -------- Patient: [place] [id number] (Continued) -------- Signed (signature on file) Chin-Tip Soto MD 10/07/23 1510 Normal [facility] Albumin [Mass/volume] in Ser um or Plasma by Bromocresol green (BCG) dye binding methoOrdered By: Elpidio Whipple on 09-14-2023 Albumin BCG dye [Mass/Vol] 4.5 g/dL 3.5-5.7 [facility] Automated erythrocytes count in urine sediment (number/area)Ordered By: Elpidio Whipple on 09-14-2023 RBC Auto (Urine sed) [#/Area] None seen [HPF] 0-4 [facility] Automated leukocytes count i n urine sediment (number/area)Ordered By: Elpidio Whipple on 09-14-2023 WBC Auto (Urine sed) [#/Area] 1-2 [HPF] 0-4 [facility] Automated urine color determ inationOrdered By: Elpidio Whipple on 09-14-2023 Color (U) Dark yellow Critically abnormal Yellow [facility] Comment on above: Order Comment: Reaso n for Exam Chronic kidney disease, stage III (moderate);Hypertensive ch Name Collection Type:: Clean-Voided Midstream Performed By: #### C UU, ADDONUAPLUS #### [facility] [address] Bilirubin Test strip Ql (U)O rdered By: Elpidio Whipple on 09-14-2023 Bilirubin Ql (U) Negative Negative [facility] Calcium [Mass/volume] in Ser um or PlasmaOrdered By: Elpidio Whipple on 09-14-2023 Calcium [Mass/Vol] 9.5 mg/dL Normal 8.6-10.3 [facility] Comment on above: Order Comment: Reaso n for Exam Chronic kidney disease, stage III (moderate);Hypertensive ch Performed By: #### M G, RENAL, [id number], URIC #### [facility] [address] Carbon dioxide, total [Moles /volume] in Serum or PlasmaOrdered By: Elpidio Whipple on 09-14-2023 CO2 [Moles/Vol] 29.7 mmol/L Normal 21.0-31.0 [facility] Comment on above: Order Comment: Reaso n for Exam Chronic kidney disease, stage III (moderate);Hypertensive ch Performed By: #### M G, RENAL, [id number], URIC #### [facility] [address] [place] [address] [place] Chloride [Moles/volume] in S john or PlasmaOrdered By: Elpidio Whipple on 09-14-2023 Chloride [Moles/Vol] 106 mmol/L Normal 98-107 [facility] Comment on above: Order Comment: Reaso n for Exam Chronic kidney disease, stage III (moderate);Hypertensive ch Performed By: #### M G, RENAL, [id number], URIC #### [facility] [address] [place] [id number] [place] Creatinine [Mass/volume] in Serum or PlasmaOrdered By: Elpidio Whipple on 09-14-2023 Creatinine [Mass/Vol] 1.29 mg/dL High 0.60-1.20 [facility] Comment on above: Order Comment: Reaso n for Exam Chronic kidney disease, stage III (moderate);Hypertensive ch Performed By: #### M G, RENAL, [id number], URIC #### [facility] [address] [place] [id number] [facility] Creatinine [Mass/volume] in UrineOrdered By: Elpidio Whipple on 09-14-2023 Creatinine (U) [Mass/Vol] 87.0 mg/dL 11.0-20.0 [facility] Dipstick and Microscopicon 1 Appearance (U) Clear Normal Clear [facility] Comment on above: Order Comment: Reaso n for Exam Chronic kidney disease, stage III (moderate);Hypertensive ch Name Collection Type:: Clean-Voided Midstream Performed By: #### C UU, ADDONUAPLUS #### [address] Bacteria,Urine None Seen Normal None Seen [facility] Comment on above: Order Comment: Reaso n for Exam Chronic kidney disease, stage III (moderate);Hypertensive ch Name Collection Type:: Clean-Voided Midstream Performed By: #### C UU, ADDONUAPLUS #### [place] [address] [place] Bilirubin,Urine Negative Normal Negative [facility] Comment on above: Order Comment: Reaso n for Exam Chronic kidney disease, stage III (moderate);Hypertensive ch Name Collection Type:: Clean-Voided Midstream Performed By: #### C UU, ADDONUAPLUS #### [address] Glucose Ql (U) Normal Normal Normal [facility] Comment on above: Order Comment: Reaso n for Exam Chronic kidney disease, stage III (moderate);Hypertensive ch Name Collection Type:: Clean-Voided Midstream Performed By: #### C UU, ADDONUAPLUS #### [place] [id number] [place] Hyaline Casts,Urine 0-8 Normal 0-8 [facility] Comment on above: Order Comment: Reaso n for Exam Chronic kidney disease, stage III (moderate);Hypertensive ch Name Collection Type:: Clean-Voided Midstream Result Comment: PERF ORMED BY: [place] [id number] PATHOLOGIST SHAPING MACHINE OPERATOR JE SHELLEY M.D. Performed By: #### C UU, ADDONUAPLUS #### [address] Ketones Ql (U) Negative Normal Negative [facility] Comment on above: Order Comment: Reaso n for Exam Chronic kidney disease, stage III (moderate);Hypertensive ch Name Collection Type:: Clean-Voided Midstream Performed By: #### C UU, ADDONUAPLUS #### [address] Leukocyte esterase Test strip Ql (U) 1+ High Negative [facility] Comment on above: Order Comment: Reaso n for Exam Chronic kidney disease, stage III (moderate);Hypertensive ch Name Collection Type:: Clean-Voided Midstream Performed By: #### C UU, ADDONUAPLUS #### [place] [address] [place] Nitrite,Urine Negative Normal Negative [facility] Comment on above: Order Comment: Reaso n for Exam Chronic kidney disease, stage III (moderate);Hypertensive ch Name Collection Type:: Clean-Voided Midstream Performed By: #### C UU, ADDONUAPLUS #### [address] Occult Blood,Urine Negative Normal Negative [facility] Comment on above: Order Comment: Reaso n for Exam Chronic kidney disease, stage III (moderate);Hypertensive ch Name Collection Type:: Clean-Voided Midstream Performed By: #### C UU, ADDONUAPLUS #### [place] [address] [place] Protein,Urine Negative Normal Negative [facility] Comment on above: Order Comment: Reaso n for Exam Chronic kidney disease, stage III (moderate);Hypertensive ch Name Collection Type:: Clean-Voided Midstream Performed By: #### C UU, ADDONUAPLUS #### [address] RBC,Urine None Seen Normal 0-4 [facility] Comment on above: Order Comment: Reaso n for Exam Chronic kidney disease, stage III (moderate);Hypertensive ch Name Collection Type:: Clean-Voided Midstream Performed By: #### C UU, ADDONUAPLUS #### [facility] [address] [place] [address] Specificy [place],Urine 1.020 Normal 1.001-1.030 [facility] Comment on above: Order Comment: Reaso n for Exam Chronic kidney disease, stage III (moderate);Hypertensive ch Name Collection Type:: Clean-Voided Midstream Performed By: #### C UU, ADDONUAPLUS #### [address] Squamous Epithelial Cell,Urine 3-4 High 0-2 [facility] Comment on above: Order Comment: Reaso n for Exam Chronic kidney disease, stage III (moderate);Hypertensive ch Name Collection Type:: Clean-Voided Midstream Performed By: #### C UU, ADDONUAPLUS #### [facility] [address] [place] [address] Urobilinogen,Urine Normal Normal Normal [facility] Comment on above: Order Comment: Reaso n for Exam Chronic kidney disease, stage III (moderate);Hypertensive ch Name Collection Type:: Clean-Voided Midstream Performed By: #### C UU, ADDONUAPLUS #### [address] WBC,Urine 1-2 Normal 0-4 The [facility] Comment on above: Order Comment: Reaso n for Exam Chronic kidney disease, stage III (moderate);Hypertensive ch Name Collection Type:: Clean-Voided Midstream Performed By: #### C UU, ADDONUAPLUS #### [facility] [address] [place] [address] Erythrocyte distribution wid th [Ratio] by Automated countOrdered By: Elpidio Whipple on 09-14-2023 Erythrocyte distribution width (RBC) [Ratio] 13.5 % Normal 11.9-15.3 [facility] Comment on above: Order Comment: Reaso n for Exam Chronic kidney disease, stage III (moderate);Hypertensive ch Performed By: #### C BCNO #### [facility] [address] [place] [address] [place] Erythrocytes [#/volume] in B lood by Automated countOrdered By: Elpidio Whipple on 09-14-2023 RBC (Bld) [#/Vol] 4.93 10*6/uL Normal 3.60-5.00 [facility] Comment on above: Order Comment: Reaso n for Exam Chronic kidney disease, stage III (moderate);Hypertensive ch Performed By: #### C BCNO #### [facility] [address] [place] [id number] [place] Glucose [Mass/volume] in Ser um or PlasmaOrdered By: Elpidio Zarater on 09-14-2023 Glucose [Mass/Vol] 97 mg/dL Normal 70-100 [facility] Comment on above: ADA recommended refe rence rangeRandom Glucose Reference Range is dependent on time and content of last meal. Glucose of more than 200 mg/dL in a nonstressed, ambulatory subject supports the diagnosis of Diabetes Mellitus. Order Comment: Reaso n for Exam Chronic kidney disease, stage III (moderate);Hypertensive ch Result Comment: Farner om Glucose Reference Range is dependent on time and content of last meal. Glucose of more than 200 mg/dL in a nonstressed, ambulatory subject supports the diagnosis of Diabetes Mellitus. ADA recommended reference range Performed By: #### M G, RENAL, [id number], URIC #### [facility] [address] [place] [id number] [place] Hematocrit [Volume Fraction] of Blood by Automated countOrdered By: Elpidio Zarater on 09-14-2023 Hematocrit (Bld) [Volume fraction] 42.7 % Normal 34.0-46.4 [facility] Comment on above: Order Comment: Reaso n for Exam Chronic kidney disease, stage III (moderate);Hypertensive ch Performed By: #### C BCNO #### [facility] [address] [place] [id number] [place] Hemoglobin [Mass/volume] in BloodOrdered By: Elpidio Zarater on 09-14-2023 Hemoglobin (Bld) [Mass/Vol] 14.3 g/dL Normal 11.8-15.4 [facility] Comment on above: Order Comment: Reaso n for Exam Chronic kidney disease, stage III (moderate);Hypertensive ch Performed By: #### C BCNO #### [address] Hemogram CBC Without Diffon 09-14-2023 Mean Corpuscular HGB Conc 33.6 g/dL Normal 32.0-35.0 [facility] Comment on above: Order Comment: Reaso n for Exam Chronic kidney disease, stage III (moderate);Hypertensive ch Performed By: #### C BCNO #### [facility] [address] [place] [address] WBC (Bld) [#/Vol] 7.7 10*3/uL Normal 3.8-11.6 [facility] Comment on above: Order Comment: Reaso n for Exam Chronic kidney disease, stage III (moderate);Hypertensive ch Performed By: #### C BCNO #### [facility] [address] [place] [address] Ketones Auto test strip (U) [Mass/Vol]Ordered By: Elpidio Whipple on 09-14-2023 Ketones (U) [Mass/Vol] Negative Negative [facility] - UrinalysisOrder ed By: Elpidio Whipple on 09-14-2023 Hyaline casts LM Ql (Urine sed) 0-8 [LPF] 0-8 [facility] Leukocytes [#/volume] correc praneeth for nucleated erythrocytes in Blood by Automated counOrdered By: Elpidio Whipple on 09-14-2023 WBC corrected for nucl RBC Auto (Bld) [#/Vol] 7.7 10*3/uL 3.8-11.6 [facility] MCH [Entitic mass] by Automa praneeth countOrdered By: Elpidio Zarater on 09-14-2023 MCH (RBC) [Entitic mass] 29.1 pg Normal 24.7-34.3 [facility] Comment on above: Order Comment: Reaso n for Exam Chronic kidney disease, stage III (moderate);Hypertensive ch Performed By: #### C BCNO #### [facility] [address] MCHC Auto (RBC) [Mass/Vol]Or dered By: Elpidio Whipple on 09-14-2023 MCHC (RBC) [Mass/Vol] 33.6 g/dL 32.0-35.0 [facility] MCV [Entitic volume] by Auto mated countOrdered By: Elpidio Whipple on 09-14-2023 MCV (RBC) [Entitic vol] 86.5 fL Normal 80-100 [facility] Comment on above: Order Comment: Reaso n for Exam Chronic kidney disease, stage III (moderate);Hypertensive ch Performed By: #### C BCNO #### [facility] [address] [place] [address] Magnesium [Mass/volume] in S john or PlasmaOrdered By: Elpidio Whipple on 09-14-2023 Magnesium [Mass/Vol] 1.9 mg/dL Normal 1.9-2.7 [facility] Comment on above: Order Comment: Reaso n for Exam Chronic kidney disease, stage III (moderate);Hypertensive ch Performed By: #### M G, RENAL, [id number], URIC #### [facility] [address] [place] [address] Nitrite Test strip Ql (U)Ord ered By: Elpidio Whipple on 09-14-2023 Nitrite Ql (U) Negative Negative [facility] No Panel InformationOrdered By: Elpidio Whipple on 09-14-2023 Estimated GFR (CKD-EPI) 46.926 mL/Min [facility] Creatinine Clearance (Chem N/A [facility] Parathyrin.intact [Mass/volu me] in Serum or PlasmaOrdered By: Elpidio Whipple on 09-14-2023 Parathyrin.intact [Mass/Vol] 133.6 pg/mL [facility] Parathyroid Hormone Intacton 09-14-2023 Parathyroid Hormone Intact 133.6 pg/mL High [facility] Comment on above: Order Comment: Reaso n for Exam Chronic kidney disease, stage III (moderate);Hypertensive ch Result Comment: PERF ORMED BY: [place] [address] PATHOLOGIST SHAPING MACHINE OPERATOR JE SHELLEY M.D. Performed By: #### C UU, ADDONUAPLUS #### [address] Phosphate [Mass/volume] in S john or PlasmaOrdered By: Elpidio Sole on 09-14-2023 Phosphate [Mass/Vol] 3.4 mg/dL Low 3.7-7.2 [facility] Comment on above: Order Comment: Reaso n for Exam Chronic kidney disease, stage III (moderate);Hypertensive ch Performed By: #### M G, RENAL, [id number], URIC #### [facility] [address] [place] [address] Platelet mean volume [Entiti c volume] in Blood by Automated countOrdered By: Elpidio Sole on 09-14-2023 Platelet mean volume (Bld) [Entitic vol] 10.0 fL Normal 6.3-10.7 [facility] Comment on above: Order Comment: Reaso n for Exam Chronic kidney disease, stage III (moderate);Hypertensive ch Result Comment: PERF ORMED BY: [place] [address] PATHOLOGIST SHAPING MACHINE OPERATOR JE SHELLEY M.D. Performed By: #### C BCNO #### [facility] [address] [place] [address] [place] Platelets [#/volume] in Bloo d by Automated countOrdered By: Elpidio Sole on 09-14-2023 Platelets (Bld) [#/Vol] 193 10*3/uL Normal 150-450 [facility] Comment on above: Order Comment: Reaso n for Exam Chronic kidney disease, stage III (moderate);Hypertensive ch Performed By: #### C BCNO #### [place] [address] [place] Potassium [Moles/volume] in Serum or PlasmaOrdered By: Elpidio Sole on 09-14-2023 Potassium [Moles/Vol] 4.7 mmol/L Normal 3.5-5.1 [facility] Comment on above: Order Comment: Reaso n for Exam Chronic kidney disease, stage III (moderate);Hypertensive ch Performed By: #### M G, RENAL, [id number], URIC #### [facility] [address] [place] [address] Protein Auto test strip (U) [Mass/Vol]Ordered By: Elpidio Sole on 09-14-2023 Protein (U) [Mass/Vol] Negative Negative [facility] Protein Creat Ratio Ur Rando mon 09-14-2023 Creatinine, Urine (Random) 87.0 mg/dL High 11.0-20.0 [facility] Comment on above: Order Comment: Reaso n for Exam Chronic kidney disease, stage III (moderate);Hypertensive ch Performed By: #### C UU, ADDONUAPLUS #### [facility] [address] [place] [address] Urine Protein/Creatinine Ratio 138 mg/g{Cre} Normal 0-200 [facility] Comment on above: Order Comment: Reaso n for Exam Chronic kidney disease, stage III (moderate);Hypertensive ch Result Comment: PERF ORMED BY: [place] [address] PATHOLOGIST SHAPING MACHINE OPERATOR JE SHELLEY M.D. Performed By: #### C UU, ADDONUAPLUS #### [facility] [address] [place] [address] Protein [Mass/volume] in Uri neOrdered By: Elpidio Sole on 09-14-2023 Protein (U) [Mass/Vol] 12 mg/dL High 0-9 [facility] Comment on above: Order Comment: Reaso n for Exam Chronic kidney disease, stage III (moderate);Hypertensive ch Performed By: #### C UU, ADDONUAPLUS #### [facility] [address] [place] [address] Renal Function Panelon 09-14 Albumin [Mass/Vol] 4.5 g/dL Normal 3.5-5.7 [facility] Comment on above: Order Comment: Reaso n for Exam Chronic kidney disease, stage III (moderate);Hypertensive ch Performed By: #### M G, RENAL, [id number], URIC #### [facility] [address] [place] [address] [place] GFR/1.73 sq M.predicted MDRD (S/P/Bld) [Vol rate/Area] 46.926 mL/min/{1.73_m2} Normal [facility] Comment on above: Order Comment: Reaso n for Exam Chronic kidney disease, stage III (moderate);Hypertensive ch Performed By: #### M G, RENAL, [id number], URIC #### [facility] [address] Serum or plasma anion gap de terminationOrdered By: Elpidio Whipple on 09-14-2023 Anion gap [Moles/Vol] 11.0 mmol/L Normal 6.0-15.0 [facility] Comment on above: Order Comment: Reaso n for Exam Chronic kidney disease, stage III (moderate);Hypertensive ch Performed By: #### M G, RENAL, [id number], URIC #### [facility] [address] [place] [address] Sodium [Moles/volume] in Ser um or PlasmaOrdered By: Elpidio Whipple on 09-14-2023 Sodium [Moles/Vol] 142 mmol/L Normal 136-145 [facility] Comment on above: Order Comment: Reaso n for Exam Chronic kidney disease, stage III (moderate);Hypertensive ch Performed By: #### M G, RENAL, [id number], URIC #### [place] [id number] [facility] Specific gravity Auto test s trip (U) [Rel density]Ordered By: Elpidio Whipple on 09-14-2023 Specific gravity (U) [Rel density] 1.020 1.001-1.030 [facility] Squamous epithelial cells de tection in urine sediment by light microscopyOrdered By: Elpidio Whipple on 09-14-2023 Epithelial cells.squamous LM Ql (Urine sed) 3-4 [HPF] 0-2 [facility] Urate [Mass/volume] in Serum or PlasmaOrdered By: Elpidio Whipple on 09-14-2023 Urate [Mass/Vol] 6.2 mg/dL Normal 2.3-6.6 [facility] Comment on above: Order Comment: Reaso n for Exam Chronic kidney disease, stage III (moderate);Hypertensive ch Performed By: #### M G, RENAL, [id number], URIC #### [facility] [address] [place] [address] [place] Urea nitrogen [Mass/volume] in Serum or PlasmaOrdered By: Elpidio Whipple on 09-14-2023 Urea nitrogen [Mass/Vol] 46 mg/dL High 7-25 [facility] Comment on above: Order Comment: Reaso n for Exam Chronic kidney disease, stage III (moderate);Hypertensive ch Performed By: #### M G, RENAL, [id number], URIC #### [facility] [address] Urine bacteria detection by automated methodOrdered By: Elpidio Whipple on 09-14-2023 Bacteria Auto Ql (U) None seen None Seen [facility] Urine clarity by refractomet ry automatedOrdered By: Elpidio Whipple on 09-14-2023 Clarity Refractometry automated (U) Clear Clear [facility] Urine glucose measurement by automated test strip (mass/volume)Ordered By: Elpidio Whipple on 09-14-2023 Glucose Auto test strip (U) [Mass/Vol] Normal mg/dL Normal [facility] Urine hemoglobin detection b y automated test stripOrdered By: Elpidio Whipple on 09-14-2023 Hemoglobin Auto test strip Ql (U) Negative Negative [facility] Urine leukocyte esterase det ection by automated test stripOrdered By: Elpidio Whipple on 09-14-2023 Leukocyte esterase Auto test strip Ql (U) 1+ Negative [facility] Urine pH measurement by auto mated test stripOrdered By: Elpidio Whipple on 09-14-2023 pH (U) 5.5 [pH] Normal 5.0-9.0 [facility] Comment on above: Order Comment: Reaso n for Exam Chronic kidney disease, stage III (moderate);Hypertensive ch Name Collection Type:: Clean-Voided Midstream Performed By: #### C UU, ADDONUAPLUS #### [facility] [address] [place] [id number] [facility] Urine protein/creatinine rat ioOrdered By: Elpidio Whipple on 09-14-2023 Protein/Creatinine (U) [Ratio] 138 mg/g{Cre} 0-200 [facility] Urobilinogen Auto test strip (U) [Mass/Vol]Ordered By: Elpidio Whipple on 09-14-2023 Urobilinogen (U) [Mass/Vol] Normal mg/dL Normal [facility] Vitamin D 25 Hydroxy Totalon 09-14-2023 Vitamin D 25 Hydroxy Total 50.6 ng/mL Normal 30-100 [facility] Comment on above: Order Comment: Reaso n for Exam Chronic kidney disease, stage III (moderate);Hypertensive ch Result Comment: SADE MIN D STATUS 25(OH)VITAMIN D RANGE (ng/mL) Deficient <20 Insufficient 20 to <30 Sufficient 30 to 100 Reference: Hannah Atkinson, Jose GILBERT, et al. Evaluation,treatment, and prevention of vitamin D deficiency; an Endocrine Society clinical practice guideline. JCEM. 2010; 96(7):1911-30. PERFORMED BY: [place] [address] PATHOLOGIST SHAPING MACHINE OPERATOR JE SHELLEY M.D. Performed By: #### M G, RENAL, [id number], URIC #### [facility] [address] [place], [place] [id number] [facility] Vitamin D+Metabolites [Mass/ volume] in Serum or PlasmaOrdered By: Elpidio Whipple on 09-14-2023 Vitamin D+Metabolites [Mass/Vol] 50.6 ng/mL 30-100 [facility] Comment on above: VITAMIN D STATUS 25( [place])VITAMIN D RANGE (ng/mL) Deficient <20 Insufficient 20 to <30Sufficient 30 to 100Reference: Hannah Atkinson, Jose GILBERT, et al. Evaluation,treatment, and prevention of vitamin D deficiency; an Endocrine Society clinical practice guideline. JCEM. 2010; 96(7):1911-30. XR hip RT min 2V(w/wo pelvis )*on 08-17-2023 XR hip RT min 2V(w/wo pelvis)* [facility] [address] [address] XRay Report Signed Patient: Rita Cobb MR#: [id number] : 1960 Acct:[id number] Age/Sex: 62 / F ADM Date: 08/17/23 Loc: SOXD Room: Type: [facility] Attending Dr: Blas Ortiz MD Copies to: Blas Ortiz MD Ordering Provider: Blas Ortiz MD Date of Service: 08/17/23 XR/XR hip RT min 2V(w/wo pelvis)*: Bilateral sacroiliitis XR hip RT min 2V(w/wo pelvis)* 08/17/2023 9:43 AM SIGNS AND SYMPTOMS: Low back pain radiating into right lower extremity PROTOCOL: Frontal radiograph the pelvis with frog-leg view of the right hip COMPARISON: None FINDINGS: Degenerative changes are noted in the sacroiliac joints. There is posterior fusion hardware at L5- S1. The bony ring of the pelvis is intact. The hips are preserved. No fracture or dislocation. XR/XR hip RT min 2V(w/wo pelvis)* IMPRESSION: No fracture or dislocation. Posterior fusion is noted at L5-S1. Mild degenerative changes are noted in the sacroiliac joints bilaterally. Impression dictated by: Timothy Levi M.D.08/17/2023 1:15 PM Dictation Location: [place] [address] Transcribed By: [facility] 08/17/23 1315 Dictated By: Timothy Levi II, MD 08/17/23 1314 Signed By: 08/17/23 1315 Normal [facility] XR lumbar spine 6V w bending on 08-11-2023 XR lumbar spine 6V w bending [facility] [address] [address] XRay Report Signed Patient: Rita Cobb MR#: [id number] : 1960 Acct:[id number] Age/Sex: 62 / F ADM Date: 08/11/23 Loc: XDSHC Room: Type: [facility] Attending Dr: Thierno Chatterjee MD Copies to: Thierno Chatterjee MD Ordering Provider: Thierno Chatterjee MD Date of Service: 08/11/23 XR/XR lumbar spine 6V w bending: History of lumbar fusion LUMBAR SPINE COMPLETE WITH FLEXION AND EXTENSION VIEWS - 8 views: CLINICAL HISTORY: Severe low back pain and pain at the pelvis and hips. Previous lumbar fusion COMPARISON: 05/19/2023 AP, lateral (neutral, flexion and extension), both oblique and AP and lateral coned-down views of the lumbosacral junction were obtained. There is slight dextroscoliotic curvature. There is prior laminectomy at L4 and L5. There are posterior rods and pedicle screws extending from L3 through S1. There is a gap in the rods at L3-4. Interbody fusion devices are present. The hardware is unchanged in appearance from the prior. There is no developing fracture. Alignment is maintained on the lateral views. No instability is seen. There is increasing disc space narrowing at L2-3. Minor endplate spurring is visualized. There is lower lumbar facet hypertrophy. The SI joints are intact. There is mild atherosclerotic disease. XR/XR lumbar spine 6V w bending IMPRESSION: OSTEOPENIA, SCOLIOSIS, POSTOPERATIVE AND DEGENERATIVE CHANGES, DESCRIBED. Impression dictated by: Ibis Crisostomo M.D.08/11/2023 4:03 PM Dictation Location: [place] [address] Transcribed By: [facility] 08/11/23 1603 Dictated By: Ibis Crisostomo MD 08/11/23 1554 Signed By: 08/11/23 1603 Normal [facility] Urine 10 SGon 05-19-2023 Albumin DL <= 20 mg/L (U) [Mass/Vol] Negative [facility] Other pH (U) 6.0 [pH] [facility] Other Urine 10 SG Negative [facility] Other Urine 10 SG 1.010 [facility] Other Urine 10 SG 0.2 [facility] Other Height or Weight NOT Doneon 04-30-2023 Adult depression screening assessment No [facility] 250 DO Work Phone: Fall risk assessment a) No falls within the last year [facility] 250 DO Work Phone: Tobacco use status CP b) No [facility] 250 DO Work Phone: Office Visit (Cardiology)on 04-30-2023 Follow-up visit Diagnoses/Problems Assessed CAD (coronary artery disease) (414.00) (I25.10) 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 (V45.82) (Z95.5) LAD February 2022 Elevated coronary artery calcium score (414.00) (R93.1) Essential hypertension (401.9) (I10) Hyperlipidemia (272.4) (E78.5) Obstructive sleep apnea syndrome (327.23) (G47.33) Diabetes mellitus (250.00) (E11.9) Never a smoker Orders CAD (coronary artery disease) Changed: From Aspirin EC 81 MG TBEC TAKE 1 TABLET DAILY To Aspirin 81 MG Oral Tablet Delayed Release TAKE 1 TABLET DAILY CAD (coronary artery disease), Hyperlipidemia Lipid Panel; Status:Active - Retrospective Authorization; Requested for:30Apr2023; SocHx: Never a smoker Tobacco Use Screening; Status:Complete; Done: 30Apr2023 Unlinked Stop: Brilinta 90 MG Oral Tablet Patient Instructions Please bring all medicines, vitamins, and herbal supplements with you when you come to the office. Prescriptions will not be filled unless you are compliant with your follow up appointments or have a follow up appointment scheduled as per instruction of your physician. Refills should be requested at the time of your visit. Stop Brilinta Lipid Follow up in 6 months Chief Complaint RITA COBB is being seen for a 6 month follow-up of. Patient is in the office for follow-up for the problems noted below. She has not had any trouble since her angioplasty. She has Jhtjkfm-Wclie-Tirkh disease and had recent surgery on the left foot that remains in cast. She will finish up the Brilinta when she finishes the present bottle. It has been years since her angioplasty of the LAD. She had no orthopnea PND and no palpitations. She has no side effect of medications. Her diabetes seems to be under control. Her blood pressure is under control medical therapy and her lipids have been aggressively treated. Assessment/recommenda tion: 1?CAD status post PCI of the LAD February 2022 for total occlusion with resolution of symptoms. Aggressive risk factor modification again was emphasized. Brilinta will be discontinued 2?diabetes managed by PCP, A1c is 7.0. 3?hypertension medical therapy under control 4?hyperlipidemia on Lovaza and twice weekly Lipitor. Lipid profile is ordered to follow-up. 5?obesity, encouraged the patient to control caloric consumption and remain physically active 6?sleep apnea on CPAP machine patient has been compliant with it. 7?Ogyffrd-Bvlpk-Ttunp joint in the ankles status post recent surgery on the left foot with plan to repair the right foot down the road Surgical History Problems History of Ankle surgery History of Back surgery History of Cardiac catheterization History of section History of Cholecystectomy History of Complete colonoscopy 30Nov2018 History of Foot surgery History of Knee replacement History of Neck surgery History of Parathyroidectomy Past Medical History Problems History of Dyspnea on exertion (786.09) (R06.09) Resolved Date: 08 May 2022 History of palpitations (V12.59) (Z87.898) Resolved Date: 20 Feb 2022 History of Premature ventricular contractions (427.69) (I49.3) Resolved Date: 20 Feb 2022 History of Pre-operative cardiovascular examination (V72.81) (Z01.810) Resolved Date: 20 Feb 2022 Current Meds Medication NameInstruction Alendronate Sodium 70 MG Oral TabletTAKE 1 TABLET BY MOUTH once weekly Allopurinol 100 MG Oral TabletTAKE 1 TABLET DAILY. Aspirin EC 81 MG TBECTAKE 1 TABLET DAILY. Brilinta 90 MG Oral TabletTAKE 1 TABLET TWICE DAILY. Calcium TABS1 TAB DAILY Dexcom G6 TransmitterUSE DIRECTED, CHANGE EVERY 3 MONTHS GNP Vitamin D Maximum Strength 50 MCG (2000 UT) Oral TabletTAKE 1 TABLET BY MOUTH ONCE DAILY HumuLIN R U-500 (CONCENTRATED) 500 UNIT/ML Subcutaneous SolutionUSE DIRECTED. HumuLIN R U-500 KwikPen 500 UNIT/ML Subcutaneous Solution Pen-injectorADMINISTE R 60 UNITS IN THE MORNING AND 30 UNITS IN THE EVENING Insulin Lispro (1 Unit Dial) 100 UNIT/ML Subcutaneous Solution Pen-injectorADMINISTE R 5-6 UNITS SUBCUTANEOUSLY IN THE MORNING AND at bedtime Lovaza 1 GM Oral CapsuleTAKE 2 CAPSULE Twice daily Lyrica CAPSTAKING 150MG IN AM, 300MG IN PM Metoprolol Succinate ER 200 MG Oral Tablet Extended Release 24 HourTAKE 1 TABLET ONCE DAILY. Nitroglycerin 0.4 MG Sublingual Tablet SublingualPLACE 1 TABLET UNDER THE TONGUE EVERY 5 MINUTES FOR UP TO 3 DOSES NEEDED FOR CHEST PAIN.CALL 911 IF PAIN PERSISTS. Olmesartan Medoxomil 40 MG Oral TabletTAKE 1 TABLET DAILY. Pregabalin 150 MG Oral CapsuleTAKE 1 CAPSULE BY MOUTH ONCE DAILY IN THE MORNING Rosuvastatin Calcium 10 MG Oral Tabletone tablet on M, W,F Vitamin B Complex Oral CapsuleTAKE 1 CAPSULE Daily Vitamin C 1000 MG Oral TabletTAKE 1 TABLET DAILY. Vitamin D (Ergocalciferol) 1.25 MG (14973 UT) Oral CapsuleTake 1 tablet twice weekly Allergies Medication Erythromycin Base TABS Adverse Reaction; Gatrointestinal upset; Updated By: Adrianna Emanuel; (more content not included)... Normal [facility] POINT OF CARE GLUCOSEon 03-30 Glucose [Mass/Vol] 215 mg/dL Critically high 74-106 [facility] Comment on above: Performed By: #### P OCGLUC ####[facility] [address] [address]DrDerek Soto PROF CHEM 8 (BAS METB)on Anion gap [Moles/Vol] 9.6 mmol/L Normal [facility] Comment on above: Performed By: #### B MP ####[facility] [address] [address]Dr. Tere Soto Calcium [Mass/Vol] 10.3 mg/dL Critically high 8.5-10.1 [facility] Comment on above: Performed By: #### B MP ####[facility] [address] [address]Dr. Tere Soto Chloride [Moles/Vol] 103 mmol/L Normal 98-107 [facility] Comment on above: Performed By: #### B MP ####[facility] [address] [address]DrDerek Soto CO2 [Moles/Vol] 31.0 mmol/L Normal 21.0-32.0 [facility] Comment on above: Performed By: #### B MP ####[facility] [address] [place] [id number]. Tere Soto Creatinine [Mass/Vol] 1.48 mg/dL Critically high 0.55-1.02 [facility] Comment on above: Performed By: #### B MP ####[facility] [address] [place], [place] [address]Dr. Tere Charles EGFR-AF BELARUSIAN 43 mL/min/1.73m2 Critically low >=60 [facility] Comment on above: Performed By: #### B MP ####[facility] [address] [place], [place] [address]Dr. Suzannajacques Charles EGFR-NON AF BELARUSIAN 36 mL/min/1.73m2 Critically low >=60 [facility] Comment on above: Performed By: #### B MP ####[facility] [address] [place], [place] [address]Dr. Tere Charles Glucose [Mass/Vol] 173 mg/dL Critically high 74-106 [facility] Comment on above: Performed By: #### B MP ####[facility] [address] [place], [place] [address]Dr. Tere Soto Potassium [Moles/Vol] 4.6 mmol/L Normal 3.5-5.1 [facility] Comment on above: Performed By: #### B MP ####[facility] [address] [place] [id number]. Tere Soto Sodium [Moles/Vol] 139 mmol/L Normal 136-145 [facility] Comment on above: Performed By: #### B MP ####[facility] [address] [place], [place] [id number]. Tere Soto Urea nitrogen [Mass/Vol] 63.0 mg/dL Critically high 7.0-18.0 [facility] Comment on above: Performed By: #### B MP ####[facility] [address] [place], [place] [id number] Soto Urea nitrogen/Creatinine [Mass ratio] 42.6 mg/mg Normal [facility] Comment on above: Performed By: #### B ####[facility] [address] [place], [place] [address] FOOT LT WO CONon 03-23-20 CT FOOT LT WO CON EXAMINATION: CT FOOT LT WO CON HISTORY: Charcot arthropathy of joint of ankle ; left foot surgery 12 weeks ago COMPARISON: XR foot left 03/03/2023, CT foot left 11/26/2022 TECHNIQUE: Multi-planar CT images were created without IV contrast. Dose reduction techniques were achieved by using automated exposure control and/or adjustment of mA and/or kV according to patient size and/or use of iterative reconstruction technique. FINDINGS: BONES: Subtalar fusion without evidence of hardware fracture or loosening. Like screw traversing the cuneiform which has backed out into the plantar soft tissues. Screw dorsal to the second tarsal-metatarsal joint which is backed out approximately 1 cm. Advanced degenerative changes the midfoot. Prior resection/osteotomy involving the bases of the first through fifth metatarsals. Complete loss of plantar arch. SOFT TISSUES: Soft tissue swelling and mild edema surrounding the ankle. EFFUSION: None visible. OTHER: Negative. IMPRESSION: 1. Stable surgical changes with backing out of to the lag screws, also seen on prior XR foot left 03/03/2023. 2. Advanced degenerative changes of the midfoot. Electronically authenticated by: BLANKA OLGUIN Date: 2023-03-23 14:59 Normal [facility] Albumin [Mass/volume] in Ser um or Plasma by Bromocresol green (BCG) dye binding methoOrdered By: Elpidio Whipple on 03-06-2023 Albumin BCG dye [Mass/Vol] 4.7 g/dL 3.5-5.7 [facility] Automated erythrocytes count in urine sediment (number/area)Ordered By: Elpidio Whipple on 03-06-2023 RBC Auto (Urine sed) [#/Area] None seen [HPF] 0-4 [facility] Automated leukocytes count i n urine sediment (number/area)Ordered By: Elpidio Whipple on 03-06-2023 WBC Auto (Urine sed) [#/Area] 5-9 [HPF] 0-4 [facility] Bilirubin Test strip Ql (U)O rdered By: Elpidio Whipple on 03-06-2023 Bilirubin Ql (U) Negative Negative [facility] Calcium [Mass/volume] in Ser um or PlasmaOrdered By: Elpidio Whipple on 03-06-2023 Calcium [Mass/Vol] 10.2 mg/dL 8.6-10.3 [facility] Carbon dioxide, total [Moles /volume] in Serum or PlasmaOrdered By: Elpidio Whipple on 03-06-2023 CO2 [Moles/Vol] 28.4 mmol/L 21.0-31.0 [facility] Chloride [Moles/volume] in S john or PlasmaOrdered By: Elpidio Whipple on 03-06-2023 Chloride [Moles/Vol] 104 mmol/L 98-107 [facility] Color Auto (U)Ordered By: Ab rahul Whipple on 03-06-2023 Color (U) Dark yellow Yellow [facility] Creatinine [Mass/volume] in Serum or PlasmaOrdered By: Elpidio Whipple on 03-06-2023 Creatinine [Mass/Vol] 1.22 mg/dL 0.60-1.20 [facility] Creatinine [Mass/volume] in UrineOrdered By: Elpidio Whipple on 03-06-2023 Creatinine (U) [Mass/Vol] 98.0 mg/dL [facility] Comment on above: No reference range e stablished Erythrocyte distribution wid th Auto (RBC) [Ratio]Ordered By: Elpidio Whipple on 03-06-2023 Erythrocyte distribution width (RBC) [Ratio] 13.8 % 11.9-15.3 [facility] Glucose [Mass/volume] in Ser um or PlasmaOrdered By: Elpidio Whipple on 03-06-2023 Glucose [Mass/Vol] 101 mg/dL 70-100 [facility] Comment on above: ADA recommended refe rence rangeRandom Glucose Reference Range is dependent on time and content of last meal. Glucose of more than 200 mg/dL in a nonstressed, ambulatory subject supports the diagnosis of Diabetes Mellitus. Hematocrit Auto (Bld) [Volum e fraction]Ordered By: Elpidio Whipple on 03-06-2023 Hematocrit (Bld) [Volume fraction] 38.1 % 34.0-46.4 [facility] Hemoglobin [Mass/volume] in BloodOrdered By: Elpidio Whipple on 03-06-2023 Hemoglobin (Bld) [Mass/Vol] 12.7 g/dL 11.8-15.4 [facility] Ketones Auto test strip (U) [Mass/Vol]Ordered By: Elpidio Whipple on 03-06-2023 Ketones (U) [Mass/Vol] Negative Negative [facility] - UrinalysisOrder ed By: Elpidio Whipple on 03-06-2023 Hyaline casts LM Ql (Urine sed) 0-8 [LPF] 0-8 [facility] Leukocytes [#/volume] correc praneeth for nucleated erythrocytes in Blood by Automated counOrdered By: Elpidio Whipple on 03-06-2023 WBC corrected for nucl RBC Auto (Bld) [#/Vol] 5.4 10*3/uL 3.8-11.6 [facility] MCH Auto (RBC) [Entitic mass ]Ordered By: Elpidio Whipple on 03-06-2023 MCH (RBC) [Entitic mass] 28.1 pg 24.7-34.3 [facility] MCHC Auto (RBC) [Mass/Vol]Or dered By: Elpidio Whipple on 03-06-2023 MCHC (RBC) [Mass/Vol] 33.3 g/dL 32.0-35.0 [facility] MCV Auto (RBC) [Entitic vol] Ordered By: Elpidio Whipple on 03-06-2023 MCV (RBC) [Entitic vol] 84.5 fL 80-100 [facility] Magnesium [Mass/volume] in S john or PlasmaOrdered By: Elpidio Whipple on 03-06-2023 Magnesium [Mass/Vol] 1.5 mg/dL 1.9-2.7 [facility] Nitrite Test strip Ql (U)Ord ered By: Elpidio Whipple on 03-06-2023 Nitrite Ql (U) Negative Negative [facility] No Panel InformationOrdered By: Elpidio Whipple on 03-06-2023 Estimated GFR (CKD-EPI) 50.176 mL/Min [facility] Creatinine Clearance (Chem N/A [facility] Parathyrin.intact [Mass/volu me] in Serum or PlasmaOrdered By: Elpidio Whipple on 03-06-2023 Parathyrin.intact [Mass/Vol] 43.8 pg/mL 12-88 [facility] Phosphate [Mass/volume] in S john or PlasmaOrdered By: Elpidio Whipple on 03-06-2023 Phosphate [Mass/Vol] 4.3 mg/dL 3.7-7.2 [facility] Platelet mean volume Auto (B ld) [Entitic vol]Ordered By: Elpidio Whipple on 03-06-2023 Platelet mean volume (Bld) [Entitic vol] 8.7 fL 6.3-10.7 [facility] Platelets Auto (Bld) [#/Vol] Ordered By: Elpidio Whipple on 03-06-2023 Platelets (Bld) [#/Vol] 191 10*3/uL 150-450 [facility] Potassium [Moles/volume] in Serum or PlasmaOrdered By: Elpidio Whipple on 03-06-2023 Potassium [Moles/Vol] 4.0 mmol/L 3.5-5.1 [facility] Protein Auto test strip (U) [Mass/Vol]Ordered By: Elpidio Whipple on 03-06-2023 Protein (U) [Mass/Vol] Negative Negative Fi [facility] Protein [Mass/volume] in Uri neOrdered By: Elpidio Whipple on 03-06-2023 Protein (U) [Mass/Vol] 8 mg/dL 0-9 [facility] RBC Auto (Bld) [#/Vol]Ordere d By: Elpidio Whipple on 03-06-2023 RBC (Bld) [#/Vol] 4.51 10*6/uL 3.60-5.00 [facility] Serum or plasma anion gap de terminationOrdered By: Elpidio Whipple on 03-06-2023 Anion gap [Moles/Vol] 12.6 mmol/L 6.0-15.0 [facility] Sodium [Moles/volume] in Ser um or PlasmaOrdered By: Elpidio Whipple on 03-06-2023 Sodium [Moles/Vol] 141 mmol/L 136-145 [facility] Specific gravity Auto test s trip (U) [Rel density]Ordered By: Elpidio Whipple on 03-06-2023 Specific gravity (U) [Rel density] 1.017 1.001-1.030 [facility] Squamous epithelial cells de tection in urine sediment by light microscopyOrdered By: Elpidio Whipple on 03-06-2023 Epithelial cells.squamous LM Ql (Urine sed) 5-9 [HPF] 0-2 [facility] Urate [Mass/volume] in Serum or PlasmaOrdered By: Elpidio Whipple on 03-06-2023 Urate [Mass/Vol] 6.7 mg/dL 2.3-6.6 [facility] Urea nitrogen [Mass/volume] in Serum or PlasmaOrdered By: Elpidio Whipple on 03-06-2023 Urea nitrogen [Mass/Vol] 37 mg/dL 7-25 [facility] Urine bacteria detection by automated methodOrdered By: Elpidio Whipple on 03-06-2023 Bacteria Auto Ql (U) None seen None Seen [facility] Urine clarity by refractomet ry automatedOrdered By: Elpidio Whipple on 03-06-2023 Clarity Refractometry automated (U) Clear Clear [facility] Urine culture routineOrdered By: Elpidio Wihpple on 03-06-2023 Bacteria identified Cx Nom (U) 2 Days [facility] Urine glucose measurement by automated test strip (mass/volume)Ordered By: Elpidio Whipple on 03-06-2023 Glucose Auto test strip (U) [Mass/Vol] Normal mg/dL Normal [facility] Urine hemoglobin detection b y automated test stripOrdered By: Elpidio Whipple on 03-06-2023 Hemoglobin Auto test strip Ql (U) Negative Negative [facility] Urine leukocyte esterase det ection by automated test stripOrdered By: Elpidio Whipple on 04-07-2023 Leukocyte esterase Auto test strip Ql (U) 2+ Negative [facility] Urine protein/creatinine rat ioOrdered By: Elpidio Whipple on 03-06-2023 Protein/Creatinine (U) [Ratio] 82 mg/g{Cre} 0-200 [facility] Urobilinogen Auto test strip (U) [Mass/Vol]Ordered By: Elpidio Whipple on 03-06-2023 Urobilinogen (U) [Mass/Vol] Normal mg/dL Normal [facility] Vitamin D+Metabolites [Mass/ volume] in Serum or PlasmaOrdered By: Elpidio Whipple on 03-06-2023 Vitamin D+Metabolites [Mass/Vol] 46.0 ng/mL 30-100 [facility] Comment on above: VITAMIN D STATUS 25( [place])VITAMIN D RANGE (ng/mL) Deficient <20 Insufficient 20 to <30Sufficient 30 to 100Reference: Nayeli MF,Hannah SCHREIBER, Jose GILBERT, et al. Evaluation,treatment, and prevention of vitamin D deficiency; an Endocrine Society clinical practice guideline. JCEM. 2010; 96(7):1911-30. pH Auto test strip (U)Ordere d By: Elpidio Whipple on 03-06-2023 pH (U) 5.5 [pH] 5.0-9.0 [facility] XR FOOT LAURA MIN 3 VIEWSon XR FOOT LAURA MIN 3 VIEWS EXAMINATION: XR FOOT LAURA MIN 3 VIEWS HISTORY: Pain in both feet COMPARISON: 02/03/2023 FINDINGS: RIGHT FINDINGS: BONES: No acute fracture or dislocation. Flattening of the plantar arch. Severe degenerative changes of the midfoot with osteotomy or fracture of the medial cuneiform and marked degenerative changes at the tarsometatarsal joints. There is lateral subluxation of the fifth metatarsal relation to the tarsal bones. Degenerative changes of the second and third tarsometatarsal joints. SOFT TISSUES: Negative. No visible soft tissue swelling. OTHER: Negative. LEFT FINDINGS: BONES: Stable osteotomies bases of the first through fifth metatarsals with extensive stable fusion hardware. No mechanical failure. There is retraction of one of the midfoot screws projected over the cuboid, unchanged. There is lateral subluxation of the metatarsals in relation to the tarsal bones, chronic. Flattening of the plantar arch. SOFT TISSUES: Negative. No visible soft tissue swelling. OTHER: Negative. 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 Tere Soto Basophils/100 WBC (Bld) 0.6 % Normal 0.2-2.0 [facility] Comment on above: Performed By: #### C BC #### [facility] [address] [place] [address] Dr. Tere Soto EO # 0.1 103/ul Normal 0.0-0.7 [facility] Comment on above: Performed By: #### C BC #### [facility] [address] [place] [address] Dr. Tere Soto Eosinophils/100 WBC (Bld) 2.9 % Normal 0.9-7.0 [facility] Comment on above: Performed By: #### C BC #### [facility] [address] [place] [address] Dr. Tere Soto Erythrocyte distribution width (RBC) [Ratio] 13.2 % Normal 11.0-15.0 [facility] Comment on above: Performed By: #### C BC #### [facility] [address] [place] [address] Dr. Tere Soto Hematocrit (Bld) [Volume fraction] 39.0 % Normal 36.0-48.0 [facility] Comment on above: Performed By: #### C BC #### [facility] [address] [place] [address] Dr. Tere Soto Hemoglobin (Bld) [Mass/Vol] 13.0 g/dL Normal 12.0-16.0 [facility] Comment on above: Performed By: #### C BC #### [facility] [address] [place] [address] Dr. Tere Soto IG # 0.01 10e3/ul Normal 0.00-0.03 [facility] Comment on above: Performed By: #### C BC #### [facility] [address] [place] [address] Dr. Tere Soto IG % 0.2 % Normal 0.0-0.5 [facility] Comment on above: Performed By: #### C BC #### [facility] [address] [place] [address] Dr. Tere Soto LYMPH # 2.1 103/ul Normal 1.2-3.8 [facility] Comment on above: Performed By: #### C BC #### [facility] [address] [place] [address] Dr. Tere Soto Lymphocytes/100 WBC (Bld) 42.6 % Normal 20.5-60.0 [facility] Comment on above: Performed By: #### C BC #### [facility] [address] [place] [address] Dr. Tere Soto MANUAL DIFF REQ NO Normal [facility] Comment on above: Performed By: #### C BC #### [facility] [address] [place] [address] Dr. Tere Soto MCH (RBC) [Entitic mass] 28.4 pg Normal 26.7-34.0 [facility] Comment on above: Performed By: #### C BC #### [facility] [address] [place] [address] Dr. Tere Soto MCHC (RBC) [Mass/Vol] 33.3 g/dL Normal 29.9-35.2 [facility] Comment on above: Performed By: #### C BC #### [facility] [address] [place] [address] Dr. Tere Soto MCV (RBC) [Entitic vol] 85.2 fL Normal 81.0-99.0 [facility] Comment on above: Performed By: #### C BC #### [facility] [address] [place] [address] Dr. Tere Soto MONO # 0.3 103/ul Normal 0.3-0.8 [facility] Comment on above: Performed By: #### C BC #### [facility] [address] [place] [address] Dr. Tere Soto Monocytes/100 WBC (Bld) 6.8 % Normal 1.7-12.0 [facility] Comment on above: Performed By: #### C BC #### [facility] [address] [place] [address] Dr. Tere Soto NEUT # 2.3 103/ul Normal 1.4-6.5 [facility] Comment on above: Performed By: #### C BC #### [facility] [address] [place] [address] Dr. Tere Soto Neutrophils/100 WBC (Bld) 46.9 % Normal 43.0-75.0 [facility] Comment on above: Performed By: #### C BC #### [facility] [address] [place] [address] Dr. Tere Soto Platelet mean volume (Bld) [Entitic vol] 11.3 fL Normal 9.5-13.5 [facility] Comment on above: Performed By: #### C BC #### [facility] [address] [place] [address] Dr. Tere Soto PLT 183 103/ul Normal 150-450 [facility] Comment on above: Performed By: #### C BC #### [facility] [address] [place] [address] Dr. Tere Soto RBC 4.58 106/ul Normal 4.20-5.40 [facility] Comment on above: Performed By: #### C BC #### [facility] [address] [place] [address] Dr. Tere Soto WBC 4.8 103/ul Normal 4.0-11.0 [facility] Comment on above: Performed By: #### C BC #### [facility] [address] [place] [address] Dr. Tere Soto [facility]01 SARS-CoV-2 (COVID-19) RNA AHMET+probe Ql (Unsp spec) Not detected Normal NOT DETECTED [facility] Comment on above: Result Comment: This test is not yet approved or cleared by the [place] FDA. When there are no FDA-approved or cleared tests available, and other criteria are met, FDA can make tests available under an emergency access mechanism called an Emergency Use Authorization (EUA). The EUA for this test is supported by the [place] of Health and Human Service's (HHS's) declaration that circumstances exist to justify the emergency use of in vitro diagnostics for the detection and/or diagnosis of the virus that causes COVID-19. This EUA will remain in effect (meaning this test can be used) for the duration of the COVID-19 declaration justifying emergency of IVDs, unless it is terminated or revoked by FDA (after which the test may no longer be used). When diagnostic testing is negative, the possibility of a false negative should be considered in the context of a patient's recent exposures and the presence of clinical signs and symptoms consistent with SARS-CoV-2. Performed By: #### C VDTBH #### [facility] [address] [place] [address] Dr. Tere Soto PROF CHEM 8 (BAS METB)on Anion gap [Moles/Vol] 13.6 mmol/L Normal [facility] Comment on above: Performed By: #### B MP #### [facility] [address] [place] [address] Dr. Tere Soto Calcium [Mass/Vol] 9.6 mg/dL Normal 8.5-10.1 [facility] Comment on above: Performed By: #### B MP #### [facility] [address] [place] [address] Dr. Tere Soto Chloride [Moles/Vol] 103 mmol/L Normal 98-107 [facility] Comment on above: Performed By: #### B MP #### [facility] [address] [place] [address] Dr. Tere Soto CO2 [Moles/Vol] 28.9 mmol/L Normal 21.0-32.0 [facility] Comment on above: Performed By: #### B MP #### [facility] [address] [address] [address] Tere Soto Creatinine [Mass/Vol] 1.25 mg/dL Critically high 0.55-1.02 [facility] Comment on above: Performed By: #### B MP #### [facility] [address] [address] [address] Tere Soto EGFR-AF BELARUSIAN 53 mL/min/1.73m2 Critically low >=60 [facility] Comment on above: Performed By: #### B MP #### [facility] [address] [address] [address] Tere Soto EGFR-NON AF BELARUSIAN 43 mL/min/1.73m2 Critically low >=60 [facility] Comment on above: Performed By: #### B MP #### [facility] [address] [address] [address] Tere Soto Glucose [Mass/Vol] 121 mg/dL Critically high 74-106 [facility] Comment on above: Performed By: #### B MP #### [facility] [address] [address] [address] Tere Soto Potassium [Moles/Vol] 4.5 mmol/L Normal 3.5-5.1 [facility] Comment on above: Performed By: #### B MP #### [facility] [address] [address] [address] Tere Soto Sodium [Moles/Vol] 141 mmol/L Normal 136-145 [facility] Comment on above: Performed By: #### B MP #### [facility] [address] [address] [address] Tere Soto Urea nitrogen [Mass/Vol] 43.0 mg/dL Critically high 7.0-18.0 [facility] Comment on above: Performed By: #### B MP #### [facility] [address] [address] [address] Tere Soto Urea nitrogen/Creatinine [Mass ratio] 34.4 mg/mg Normal [facility] Comment on above: Performed By: #### B MP #### [facility] [address] [place], [place] [address] Dr. Tere Soto PROTIMEon 12-23-2022 INR Coag (PPP) [Relative time] {INR} Normal [facility] Comment on above: Performed By: #### P T, PTT ####[facility] [address] [place] [id number] Soto INR GUIDELINES SEE BELOW Normal [facility] Comment on above: Result Comment: RUBEN RED INR: 2.0 - 3.0 CONDITIONS NOT LISTED BELOW 2.5 - 3.5 FOR PROSTHETIC HEART VALVE REPLACEMENT 2.5 - 3.5 RECURRENT THROMBOSIS Performed By: #### P T, PTT ####[facility] [address] [place] [address]Dr. Tere Soto PT Coag (PPP) [Time] 9.8 s Normal 9.0-11.6 [facility] Comment on above: Performed By: #### P T, PTT ####[facility] [address] [place] [id number]. Tere Soto PTTon 12-23-2022 aPTT Coag (Bld) [Time] 26.5 s Normal 22.3-36.2 [facility] Comment on above: Performed By: #### P T, PTT ####[facility] [id number] [place] [id number] FOOT LT WO CONon 11-26-20 CT FOOT LT WO CON EXAMINATION: CT FOOT LT WO CON HISTORY: Charcot arthropathy of joint of ankle COMPARISON: No relevant comparison available. TECHNIQUE: Multi-planar CT images were created without IV contrast. Dose reduction techniques were achieved by using automated exposure control and/or adjustment of mA and/or kV according to patient size and/or use of iterative reconstruction technique. Multiplanar reformats performed on local workstation FINDINGS: BONES: No acute fracture or dislocation. Severe degenerative changes throughout the midfoot and at the midfoot forefoot junction with destructive lytic changes of the bones. Extensive joint space narrowing. Additional degenerative changes most significant at the first metatarsal-phalangeal joint. SOFT TISSUES: Negative. No visible soft tissue swelling. EFFUSION: None visible. OTHER: Negative. IMPRESSION: Severe degenerative changes as detailed above consistent with known neuropathic osteoarthropathy Electronically authenticated by: BRODERICK FLOR Date: 2022-11-26 16:36 Normal [facility] XR ANKLE LAURA MIN 3 VIEWSon 1 01-14-2022 XR ANKLE LAURA MIN 3 VIEWS EXAMINATION: XR ANKLE LAURA MIN 3 VIEWS, XR FOOT LAURA MIN 3 VIEWS HISTORY: Bilateral ankle joint pain COMPARISON: XR foot left 07/19/2022 FINDINGS: RIGHT FINDINGS: BONES: Advanced degenerative changes of the tarsal-metatarsal joints and widening of the first-second metatarsal joint space. Flattening of plantar arch. Prior fractures and irregular healing versus erosive changes involving heads of the second third metatarsals. Complete collapse of plantar arch. SOFT TISSUES: Mild soft tissue swelling. OTHER: Negative. LEFT FINDINGS: BONES: Advanced degenerative changes of the tarsal metatarsal joints and widening of the first-second metatarsal joint space. Marked degenerative changes of the interphalangeal joint of the first toe. Complete collapse of plantar arch. SOFT TISSUES: Mild soft tissue swelling. OTHER: Negative. IMPRESSION: RIGHT CONCLUSION: Charcot joint with advanced degenerative changes. LEFT CONCLUSION: Charcot joint with advanced degenerative changes; not appreciably changed. Electronically authenticated by: BLANKA OLGUIN Date: 2022-11-13 06:32 Normal [facility] Office Visit (Cardiology)on 11-12-2022 Follow-up visit Diagnoses/Problems Assessed CAD (coronary artery disease) (414.00) (I25.10) Essential hypertension (401.9) (I10) Hyperlipidemia (272.4) (E78.5) 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 (V45.82) (Z95.5) LAD February 2022 Diabetes mellitus (250.00) (E11.9) Obstructive sleep apnea syndrome (327.23) (G47.33) Never a smoker Class 2 obesity with body mass index (BMI) of 36.0 to 36.9 in adult (278.00,V85.36) (E66.9,Z68.36) Rgyfxtb-Jgxmn-Cbrvw disease (356.1) (G60.0) Orders CAD (coronary artery disease), Diabetes mellitus, Essential hypertension Changed: From Benicar 40 MG Oral Tablet TAKE 1 TABLET DAILY To Olmesartan Medoxomil 40 MG Oral Tablet (Benicar) TAKE 1 TABLET DAILY CAD (coronary artery disease), Diabetes mellitus, Hyperlipidemia Start: Rosuvastatin Calcium 10 MG Oral Tablet; one tablet on M, W,F CAD (coronary artery disease), Hyperlipidemia ALT - Alanine Aminotransferase, Serum; Status:Active - Retrospective Authorization; Requested for:10Feb2023 09:18AM; AST; Status:Active - Retrospective Authorization; Requested for:10Feb2023 09:18AM; Lipid Panel; Status:Active - Retrospective Authorization; Requested for:10Feb2023 09:18AM; Class 2 obesity with body mass index (BMI) of 36.0 to 36.9 in adult Healthy Weight Tips; Status:Complete - Retrospective Authorization; Done: [id number] Some eating tips that can help you lose weight.; Status:Complete - Retrospective Authorization; Done: [id number] SocHx: Never a smoker Tobacco Use Screening; Status:Complete; Done: [id number] Patient Instructions Please bring all medicines, vitamins, and herbal supplements with you when you come to the office. Prescriptions will not be filled unless you are compliant with your follow up appointments or have a follow up appointment scheduled as per instruction of your physician. Refills should be requested at the time of your visit. labs discussed with patient Patient may hold Brilinta x 5 days prior to surgery, stay on ASA co-q 10 recommended with rosuvastatin Chief Complaint RITA COBB is being seen for a 6 month follow-up of. Patient is in the office for follow-up for the problems noted below. Since her last visit she has developed Hrgljtd-Nutyg-Kwhxu joint in the left foot and is planning surgery next month. Cardiac gabriel she has remained symptoms free. Recent lab data were reviewed from July 2022. LDL remains over 100 mg/dL. She has been only on Lovaza but no statin. She is willing to try small dose of rosuvastatin 3 days weekly to see if she can tolerate it and could impact her LDL cholesterol. Her weight is down several pounds from last visit which is encouraging. Her diabetes is under control A1c 7.0. Assessment/recommenda tion: 1?CAD status post PCI of the LAD February 2022 for total occlusion with resolution of symptoms. Aggressive risk factor modification again was emphasized. Brilinta will be completed for 1 year in February after that it will be discontinued. Aspirin for life.. 2?diabetes managed by PCP, A1c is 7.0. 3?hypertension medical therapy under control 4?hyperlipidemia on Lovaza which has been tolerated, LDL 101 mg/dL by recent testing. She is agreeable to try again rosuvastatin 10 mg 3 times weekly along with CQ 10 200 mg daily. We will follow labs in 3 months 5?obesity, encouraged the patient to control caloric consumption and remain physically active 6?sleep apnea on CPAP machine patient has been compliant with it. 7?Fyoipda-Ouvyl-Anbfn joint in the left ankle and need for surgical repair next month. She will be cleared for surgery with no further cardiac testing. And she can hold Brilinta 5 days for surgery but she need to stay on the aspirin uninterrupted Surgical History Problems History of Ankle surgery History of Back surgery History of Cardiac catheterization History of section History of Cholecystectomy History of Complete colonoscopy 30Nov2018 History of Knee replacement History of Neck surgery History of Parathyroidectomy Past Medical History Problems History of Dyspnea on exertion (786.09) (R06.09) Resolved Date: 08 May 2022 History of palpitations (V12.59) (Z87.898) Resolved Date: 20 Feb 2022 History of Premature ventricular contractions (427.69) (I49.3) Resolved Date: 20 Feb 2022 History of Pre-operative cardiovascular examination (V72.81) (Z01.810) Resolved Date: 20 Feb 2022 Current Meds Medication NameInstruction Allopurinol 100 MG Oral TabletTAKE 1 TABLET DAILY. Aspirin EC 81 MG Oral Tablet Delayed ReleaseTAKE 1 TABLET DAILY. Benicar 40 MG Oral TabletTAKE 1 TABLET DAILY. Brilinta 90 MG Oral TabletTAKE 1 TABLET TWICE DAILY. HumuLIN R U-500 (CONCENTRATED) 500 UNIT/ML Subcutaneous SolutionUSE DIRECTED. Lovaza 1 GM Oral CapsuleTAKE 2 CAPSULE Twice daily Lyrica CAPSTAKING 150MG IN AM, 300MG IN PM Metoprolol Succinate ER 200 MG Oral Tablet Extended Release 24 HourTAKE 1 TABLET ONCE DAILY. Nitroglycerin 0.4 MG Subli (more content not included)... Normal [facility] Culture, MRSA Screenon 10-14 Culture, MRSA Screen Culture, MRSA Screen-: Methicillin resistant Staph aureus not isolated Normal [facility] Hgb A1Con 10-08-2022 HbA1c (Bld) [Mass fraction] 7.1 % High 4.0-5.6 [facility] Sedimentation Rateon Sedimentation Rate 44 mm/Hr High 0-20 [facility] C-Reactive Proteinon C-Reactive Protein 0.4 mg/dL Normal 0.0-0.4 [facility] CBC With Platelet and Differ entialon 10-07-2022 Abs Imm Granulocytes 0.01 E9/L Normal [facility] Absolute Basophils 0.05 E9/L Normal 0.00-0.20 [facility] Absolute Eosinophils 0.15 E9/L Normal 0.05-0.50 [facility] Absolute Lymphocytes 2.20 E9/L Normal 1.50-4.00 [facility] Absolute Monocytes 0.35 E9/L Normal 0.10-0.95 [facility] Absolute Neutrophils 1.88 E9/L Normal 1.80-7.30 [facility] Basophils/100 WBC (Bld) 1.1 % Normal 0.0-2.0 [facility] Eosinophils/100 WBC (Bld) 3.2 % Normal 0.0-6.0 [facility] Hematocrit (Bld) [Volume fraction] 36.9 % Normal 34.0-48.0 [facility] Hemoglobin (Bld) [Mass/Vol] 12.4 g/dL Normal 11.5-15.5 [facility] Imm Granulocytes 0.2 % Normal 0.0-5.0 [facility] Lymphocytes/100 WBC (Bld) 47.4 % High 20.0-42.0 [facility] MCH (RBC) [Entitic mass] 29.7 pg Normal 26.0-35.0 [facility] MCHC 33.6 % Normal 32.0-34.5 [facility] MCV (RBC) [Entitic vol] 88.3 fL Normal 80.0-99.9 [facility] Monocytes/100 WBC (Bld) 7.5 % Normal 2.0-12.0 [facility] Neutrophils/100 WBC (Bld) 40.6 % Low 43.0-80.0 [facility] Platelet Count 208 E9/L Normal 130-450 [facility] Platelet mean volume (Bld) [Entitic vol] 11.7 fL Normal 7.0-12.0 [facility] RBC 4.18 E12/L Normal 3.50-5.50 [facility] RDW 13.3 fL Normal 11.5-15.0 [facility] WBC 4.6 E9/L Normal 4.5-11.5 [facility] Comprehensive Metabolic Pane alma 10-07-2022 Albumin [Mass/Vol] 4.3 g/dL Normal 3.5-5.2 [facility] ALP [Catalytic activity/Vol] 71 U/L Normal 35-104 [facility] ALT [Catalytic activity/Vol] 12 U/L Normal 0-32 [facility] Anion gap [Moles/Vol] 10 mmol/L Normal 7-16 [facility] AST [Catalytic activity/Vol] 19 U/L Normal 0-31 [facility] Bilirubin [Mass/Vol] 0.3 mg/dL Normal 0.0-1.2 [facility] Calcium [Mass/Vol] 10.3 mg/dL High 8.6-10.2 [facility] Chloride [Moles/Vol] 103 mmol/L Normal 98-107 [facility] CO2 [Moles/Vol] 27 mmol/L Normal 22-29 [facility] Creatinine [Mass/Vol] 1.2 mg/dL High 0.5-1.0 [facility] GFR/1.73 sq M.predicted among non-blacks MDRD (S/P/Bld) [Vol rate/Area] 51 mL/min/{1.73_m2} Normal >=60 [facility] Comment on above: Result Comment: Clifford atric calculator link https://www.kidney.org/professionals/kdoqi/gfr_calculatorped Effective Sep 01, 2022 These results are not intended for use in patients <18 years of age. eGFR results are calculated without a race factor using the 2020 CKD-EPI equation. Careful clinical correlation is recommended, particularly when comparing to results calculated using previous equations. The CKD-EPI equation is less accurate in patients with extremes of muscle mass, extra-renal metabolism of creatinine, excessive creatinine ingestion, or following therapy that affects renal tubular secretion. Glucose [Mass/Vol] 111 mg/dL High 74-99 [facility] Potassium [Moles/Vol] 4.6 mmol/L Normal 3.5-5.0 [facility] Protein [Mass/Vol] 7.3 g/dL Normal 6.4-8.3 [facility] Sodium [Moles/Vol] 140 mmol/L Normal 132-146 [facility] Urea nitrogen [Mass/Vol] 30 mg/dL High 6-23 [facility] Albumin [Mass/volume] in Ser um or PlasmaOrdered By: Charan Casey on 08-13-2022 Albumin [Mass/Vol] 3.9 g/dL 3.2-5.5 [facility] Automated erythrocytes count in urine sediment (number/area)Ordered By: Elpidio Whipple on 08-13-2022 RBC Auto (Urine sed) [#/Area] 0-1 [HPF] 0-4 [facility] Automated leukocytes count i n urine sediment (number/area)Ordered By: Elpidio Whipple on 08-13-2022 WBC Auto (Urine sed) [#/Area] None seen [HPF] 0-4 [facility] Basophils Auto (Bld) [#/Vol] Ordered By: Charan Casey on 08-13-2022 Basophils (Bld) [#/Vol] 0.1 10*3/uL 0.0-0.2 [facility] Basophils/100 WBC Auto (Bld) Ordered By: Charan Casey on 08-13-2022 Basophils/100 WBC (Bld) 1.0 % . [facility] Bilirubin Test strip Ql (U)O rdered By: Elpidio Whipple on 08-13-2022 Bilirubin Ql (U) Negative Negative [facility] Cholesterol [Mass/volume] in Serum or PlasmaOrdered By: Charan Casey on 08-13-2022 Cholesterol [Mass/Vol] 170 mg/dL 140-200 [facility] Comment on above: Chol less than 200 m g/dl low riskChol 201-239 mg/dl borderline riskChol 240 mg/dl and greater high risk Cholesterol in LDL Calc [Mas s/Vol]Ordered By: Charan Casey on 08-13-2022 Cholesterol in LDL [Mass/Vol] 101 mg/dL 0-100 [facility] Comment on above: LDL ATP III CLASSIFI CATIONLDL less than 100 mg/dL OptimalLDL 100-129 mg/dL Near or above optimalLDL 130-159 mg/dL Borderline highLDL 160-189 mg/dL HighLDL greater than 189 mg/dL Very high Cholesterol in VLDL Calc [Ma ss/Vol]Ordered By: Charan Casey on 08-13-2022 Cholesterol in VLDL [Mass/Vol] 41 mg/dL [facility] Color Auto (U)Ordered By: Ab rahul Whipple on 08-13-2022 Color (U) Dark yellow Yellow [facility] Creatinine [Mass/volume] in UrineOrdered By: Elpidio Whipple on 08-13-2022 Creatinine (U) [Mass/Vol] 127.6 mg/dL [facility] Comment on above: No reference range e stablished Creatinine and Glomerular fi ltration rate.predicted panel (S/P/Bld)Ordered By: Charan Casey on 08-13-2022 Creatinine [Mass/Vol] 1.41 mg/dL 0.44-1.03 [facility] Eosinophils Auto (Bld) [#/Vo l]Ordered By: Charan Casey on 08-13-2022 Eosinophils (Bld) [#/Vol] 0.1 10*3/uL 0.0-0.45 [facility] Eosinophils/100 WBC Auto (Bl d)Ordered By: Charan Casey on 08-13-2022 Eosinophils/100 WBC (Bld) 1.7 % . [facility] Erythrocyte distribution wid th Auto (RBC) [Ratio]Ordered By: Charan Casey on 08-13-2022 Erythrocyte distribution width (RBC) [Ratio] 13.1 % 11.9-15.3 [facility] Estimated glomerular filtrat ion rate (GFR) non- AmericanOrdered By: Charan Casey on 08-13-2022 GFR/1.73 sq M.predicted among non-blacks MDRD (S/P/Bld) [Vol rate/Area] 38 mL/Min [facility] Globulin Calc (S) [Mass/Vol] Ordered By: Charan Casey on 08-13-2022 Globulin (S) [Mass/Vol] 3.1 g/dL [facility] Hematocrit Auto (Bld) [Volum e fraction]Ordered By: Charan Casey on 08-13-2022 Hematocrit (Bld) [Volume fraction] 38.0 % 34.0-46.4 [facility] Hemoglobin [Mass/volume] in BloodOrdered By: Charan Casey on 08-13-2022 Hemoglobin (Bld) [Mass/Vol] 12.6 g/dL 11.8-15.4 [facility] Ketones Auto test strip (U) [Mass/Vol]Ordered By: Elpidio Whipple on 08-13-2022 Ketones (U) [Mass/Vol] Negative Negative Fi [facility] Laboratory - Chemistry and C hemistry - challengeOrdered By: Elpidio Whipple on 08-13-2022 Magnesium [Mass/Vol] 1.9 mg/dL 1.6-2.6 [facility] Laboratory - Hematology and Cell countsOrdered By: Charan Casey on 08-13-2022 Nucleated RBC/100 WBC (Bld) [Ratio] 0.0 % 0-0.5 [facility] Laboratory - UrinalysisOrder ed By: Elpidio Whipple on 08-13-2022 Hyaline casts LM Ql (Urine sed) 0-8 [LPF] 0-8 [facility] Leukocytes [#/volume] in Blo od by Automated countOrdered By: Charan Casey on 08-13-2022 WBC (Bld) [#/Vol] 8.2 10*3/uL 4.5-11.0 [facility] Lymphocytes Auto (Bld) [#/Vo l]Ordered By: Charan Casey on 08-13-2022 Lymphocytes (Bld) [#/Vol] 2.8 10*3/uL 1.00-4.8 [facility] Lymphocytes/100 WBC Auto (Bl d)Ordered By: Charan Casey on 08-13-2022 Lymphocytes/100 WBC (Bld) 34.1 % . [facility] MCH Auto (RBC) [Entitic mass ]Ordered By: Charan Casey on 08-13-2022 MCH (RBC) [Entitic mass] 28.5 pg 24.7-34.3 [facility] MCHC Auto (RBC) [Mass/Vol]Or dered By: Charan Casey on 08-13-2022 MCHC (RBC) [Mass/Vol] 33.2 g/dL 32.0-35.0 Fir [facility] MCV Auto (RBC) [Entitic vol] Ordered By: Charan Casey on 08-13-2022 MCV (RBC) [Entitic vol] 85.8 fL 80-100 [facility] Monocytes Auto (Bld) [#/Vol] Ordered By: Charan Casey on 08-13-2022 Monocytes (Bld) [#/Vol] 0.5 10*3/uL 0.0-0.8 [facility] Monocytes/100 WBC Auto (Bld) Ordered By: Charan Casey on 08-13-2022 Monocytes/100 WBC (Bld) 6.4 % . [facility] Neutrophils Auto (Bld) [#/Vo l]Ordered By: Charan Casey on 08-13-2022 Neutrophils (Bld) [#/Vol] 4.7 10*3/uL 1.8-7.7 [facility] Neutrophils/100 WBC Auto (Bl d)Ordered By: Charan Casey on 08-13-2022 Neutrophils/100 WBC (Bld) 56.8 % . [facility] Nitrite Test strip Ql (U)Ord ered By: Elpidio Whipple on 08-13-2022 Nitrite Ql (U) Negative Negative [facility] No Panel InformationOrdered By: Charan Casey on 08-13-2022 25-Hydroxy Vitamin D Total 37.8 ng/mL 30-100 [facility] Comment on above: VITAMIN D STATUS 25( [place])VITAMIN D RANGE (ng/mL) Deficient <20 Insufficient 20 to <30Sufficient 30 to 100Reference: Nayeli MF,Hannah NC, Jose GILBERT, et al. Evaluation,treatment, and prevention of vitamin D deficiency; an Endocrine Society clinical practice guideline. JCEM. 2010; 96(7):1911-30. Estimated GFR () 46 mL/Min [facility] Comment on above: GFR estimated refere nce range: According to KDOQI guidelines, <60 ml/min/1.73m2 is sufficient to diagnose a patient with chronic kidney disease. Pharmacy Creatinine Clearance (Chem N/A [facility] Platelet mean volume Auto (B ld) [Entitic vol]Ordered By: Charan Casey on 08-13-2022 Platelet mean volume (Bld) [Entitic vol] 9.2 fL 6.3-10.7 [facility] Platelets Auto (Bld) [#/Vol] Ordered By: Charan Casey on 08-13-2022 Platelets (Bld) [#/Vol] 272 10*3/uL 150-450 [facility] Protein Auto test strip (U) [Mass/Vol]Ordered By: Elpidio Whipple on 08-13-2022 Protein (U) [Mass/Vol] Negative Negative Fi [facility] Protein [Mass/volume] in Ser um or PlasmaOrdered By: Charan Casey on 08-13-2022 Protein [Mass/Vol] 7.0 g/dL 6.1-7.9 [facility] Protein [Mass/volume] in Uri neOrdered By: Elpidio Whipple on 08-13-2022 Protein (U) [Mass/Vol] 7 mg/dL 0-9 Fi [facility] RBC Auto (Bld) [#/Vol]Ordere d By: Charan Casey on 08-13-2022 RBC (Bld) [#/Vol] 4.43 10*6/uL 3.60-5.00 [facility] Serum or plasma alanine stanton otransferase measurement without P-5'-P (enzymatic activiOrdered By: Charan Casey on 08-13-2022 ALT No additional P-5'-P [Catalytic activity/Vol] 12 U/L 10-60 [facility] Serum or plasma albumin/glob ulin mass ratioOrdered By: Charan Casey on 08-13-2022 Albumin/Globulin [Mass ratio] 1.3 {ratio} [facility] Serum or plasma alkaline do sphatase measurement (enzymatic activity/volume)Ordered By: Charan Casey on 08-13-2022 ALP [Catalytic activity/Vol] 79 U/L 32-92 [facility] Serum or plasma anion gap de terminationOrdered By: Charan Casey on 08-13-2022 Anion gap [Moles/Vol] 15.4 mmol/L 6.0-15.0 [facility] Serum or plasma aspartate am inotransferase measurement (enzymatic activity/volume)Ordered By: Charan Casey on 08-13-2022 AST [Catalytic activity/Vol] 22 U/L 10-42 [facility] Serum or plasma calcium gautam urement (mass/volume)Ordered By: Charan Casey on 08-13-2022 Calcium [Mass/Vol] 10.1 mg/dL 8.2-10.2 [facility] Serum or plasma chloride malika surement (moles/volume)Ordered By: Charan Casey on 08-13-2022 Chloride [Moles/Vol] 102 mmol/L 95-114 [facility] Serum or plasma glucose gautam urement (mass/volume)Ordered By: Charan Casey on 08-13-2022 Glucose [Mass/Vol] 114 mg/dL 70-100 [facility] Comment on above: ADA recommended refe rence rangeRandom Glucose Reference Range is dependent on time and content of last meal. Glucose of more than 200 mg/dL in a nonstressed, ambulatory subject supports the diagnosis of Diabetes Mellitus. Serum or plasma high density lipoprotein (HDL) cholesterol measurementOrdered By: Charan Casey on 08-13-2022 Cholesterol in HDL [Mass/Vol] 28 mg/dL 35-85 [facility] Comment on above: HDL CHOL ATP-III CLA SSIFICATION Cardiovascular RiskHDL > or equal to 60 mg/dL LOWHDL < 40 mg/dL HIGH Serum or plasma intact parat hyroid hormone measurement (mass/volume)Ordered By: Elpidio Whipple on 08-13-2022 Parathyrin.intact [Mass/Vol] 87.0 pg/mL [facility] Serum or plasma potassium me asurement (moles/volume)Ordered By: Charan Casey on 08-13-2022 Potassium [Moles/Vol] 4.9 mmol/L 3.5-5.1 [facility] Serum or plasma sodium measu rement (moles/volume)Ordered By: Charan Casey on 08-13-2022 Sodium [Moles/Vol] 138 mmol/L 136-146 [facility] Serum or plasma total biliru bin measurement (mass/volume)Ordered By: Charan Casey on 08-13-2022 Bilirubin [Mass/Vol] 0.4 mg/dL 0.3-1.2 [facility] Serum or plasma total carbon dioxide measurement (moles/volume)Ordered By: Charan Casey on 08-13-2022 CO2 [Moles/Vol] 25.5 mmol/L 22.0-30.0 [facility] Serum or plasma total choles terol/high density lipoprotein (HDL) cholesterol mass ratOrdered By: Charan Casey on 08-13-2022 Cholesterol.total/Mary sterol in HDL [Mass ratio] 6.1 {ratio} <5.0 [facility] Serum or plasma urea nitroge n measurement (mass/volume)Ordered By: Charan Casey on 08-13-2022 Urea nitrogen [Mass/Vol] 45 mg/dL 08-22 [facility] Serum or plasma uric acid me asurement (mass/volume)Ordered By: Charan Casey on 08-13-2022 Urate [Mass/Vol] 7.9 mg/dL 2.6-7.2 [facility] Specific gravity Auto test s trip (U) [Rel density]Ordered By: Elpidio Whipple on 08-13-2022 Specific gravity (U) [Rel density] 1.020 1.001-1.030 [facility] Squamous epithelial cells de tection in urine sediment by light microscopyOrdered By: Elpidio Whipple on 08-13-2022 Epithelial cells.squamous LM Ql (Urine sed) 0-1 [HPF] 0-2 [facility] TSH DL <= 0.005 mIU/L QnOrde red By: Charan Casey on 08-13-2022 TSH Qn 1.91 m[IU]/L 0.45-5.33 [facility] Triglyceride [Mass/volume] i n Serum or PlasmaOrdered By: Charan Casey on 08-13-2022 Triglyceride [Mass/Vol] 207 mg/dL 35-149 [facility] Comment on above: TRIG ATP III CLASSIF ICATIONTRIG less than 150 mg/dL NormalTRIG 150-199 mg/dL Borderline highTRIG 200-500 mg/dL High TRIG greater than 500 mg/dL Very highStandard traceable to the Center for Disease Conrtrol and Prevention (CDC) test method. Urine bacteria detection by automated methodOrdered By: Elpidio Whipple on 08-13-2022 Bacteria Auto Ql (U) None seen None Seen [facility] Urine clarity by refractomet ry automatedOrdered By: Elpidio Whipple on 08-13-2022 Clarity Refractometry automated (U) Clear Clear [facility] Urine glucose measurement by automated test strip (mass/volume)Ordered By: Elpidio Whipple on 08-13-2022 Glucose Auto test strip (U) [Mass/Vol] Normal mg/dL Normal [facility] Urine hemoglobin detection b y automated test stripOrdered By: Elpidio Whipple on 08-13-2022 Hemoglobin Auto test strip Ql (U) Negative Negative [facility] Urine leukocyte esterase det ection by automated test stripOrdered By: Elpidio Whipple on 08-13-2022 Leukocyte esterase Auto test strip Ql (U) Negative Negative [facility] Urine protein/creatinine rat ioOrdered By: Elpidio Whipple on 08-13-2022 Protein/Creatinine (U) [Ratio] 55 mg/g{Cre} 0-200 [facility] Urobilinogen Auto test strip (U) [Mass/Vol]Ordered By: Elpidio Whipple on 08-13-2022 Urobilinogen (U) [Mass/Vol] Normal mg/dL Normal [facility] pH Auto test strip (U)Ordere d By: Elpidio Whipple on 08-13-2022 pH (U) 5.0 [pH] 5.0-9.0 [facility] Tobacco Screening.on 022 Adult depression screening assessment No [facility] gomez [employer] Garcia DO Work Phone: Fall risk assessment a) No falls within the last year [facility] Estephania Garcia DO Work Phone: Tobacco use status CPHS b) No M [facility] Estephania Garcia DO Work Phone: Laboratory - Chemistry and C hemistry - challengeon 03-25-2022 Cholesterol [Mass/Vol] 218\S\218 above hig h threshold 140-200 [facility] Estephania Garcia DO Work Phone: Comment on above: Chol less than 200 m g/dl low risk Chol 201-239 mg/dl borderline risk Chol 240 mg/dl and greater high risk Cholesterol in LDL [Mass/Vol] 145\S\145 above high threshold 0-100 [facility] [employer] Garcia DO Work Phone: Comment on above: LDL ATP III CLASSIFI CATION LDL less than 100 mg/dL Optimal LDL 100-129 mg/dL Near or above optimal LDL 130-159 mg/dL Borderline high LDL 160-189 mg/dL High LDL greater than 189 mg/dL Very high Laboratory - Microbiology an d Antimicrobial susceptibilityon 03-25-2022 SARS-CoV-2 (COVID-19) RNA AHMET+probe Ql (Unsp spec) [facility] [employer] Garcia DO Work Phone: No Panel Informationon 03-25 40.2\S\40.2 Normal . [facility] [employer] Garcia DO Work Phone: 9.2\S\9.2 Normal 6.3-10.7 [facility] [employer] Garcia DO Work Phone: 200\S\200 Normal 150-450 [facility] [employer] Garcia DO Work Phone: 13.5\S\13.5 Normal 11.9-15.3 [facility]-Radha 250 DO Work Phone: 34.0\S\34.0 Normal 32.0-35.0 -[facility] 250 DO Work Phone: 29.0\S\29.0 Normal 24.7-34.3 [facility] 250 DO Work Phone: 2.0\S\2.0 Normal 1.8-7.7 [facility]-Radha 250 DO Work Phone: 0.1\S\0.1 Normal 0.0-0.45 [facility] 250 DO Work Phone: 0.6\S\0.6 Normal . [facility] 250 DO Work Phone: 2.9\S\2.9 Normal . [facility]-Radha 250 DO Work Phone: 7.1\S\7.1 Normal . [facility] 250 DO Work Phone: 49.2\S\49.2 Normal . [facility]-Radha 250 DO Work Phone: 0.0\S\0.0 Normal 0.0-0.2 [facility] 250 DO Work Phone: Comment on above: PERFORMED BY:[facility] [place], [place] [id number] MEDICAL DIRECTORJE SHELLEY M.D. 0.4\S\0.4 Normal 0.0-0.8 [facility] 250 DO Work Phone: 2.5\S\2.5 Normal 1.00-4.8 [facility] 250 DO Work Phone: 85.5\S\85.5 Normal 80-100 [facility]ha 250 DO Work Phone: 39.0\S\39.0 Normal 34.0-46.4 [facility]ha 250 DO Work Phone: 13.3\S\13.3 Normal 11.8-15.4 [facility] 250 DO Work Phone: 4.56\S\4.56 Normal 3.60-5.00 [facility] 250 DO Work Phone: 5.1\S\5.1 Normal 3.8-11.6 [facility] 250 DO Work Phone: 33.3\S\33.3 Normal 25.1-36.5 [facility] 250 DO Work Phone: Comment on above: PERFORMED BY:[place] [address] [place], [place] [id number] MEDICAL DIRECTORJE SHELLEY M.D. 1.0\S\1.0 [facility] DO Work Phone: Comment on above: INR Therapeutic Rang e A) Pre- and Peroperative OAT started two weeks before surgery. NOT HIP SURGERY: 1.5 - 2.5 HIP SURGERY: 2 - 3 B) Primary and secondary prevention of venous THROMBOSIS: 2 - 3 C) Active venous thrombosis, pulmonary embolism and prevention of recurrent venous thrombosis: 2 - 3 D) Prevention of arterial thromboembolism including patients with mechanical heart valves: 3 - 4.5 10.9\S\10.9 Normal 9.0-12.9 [facility] 250 DO Work Phone: 26.6\S\26.6 Normal 22.0-30.0 [facility] 250 DO Work Phone: 104\S\104 Normal 95-114 [facility] 250 DO Work Phone: 4.0\S\4.0 Normal 3.5-5.1 [facility] 250 DO Work Phone: 140\S\140 Normal 136-146 [facility]-Radha 250 DO Work Phone: 18\S\18 Normal 9-23 [facility]-Radha 250 DO Work Phone: 54\S\54 Normal [facility] HeartDave 250 DO Work Phone: Comment on above: GFR estimated refere nce range: According to KDOQI guidelines, <60 ml/min/1.73m2 is sufficient to diagnose a patient with chronic kidney disease. 45\S\45 Normal [facility]-Radha 250 DO Work Phone: 1.22\S\1.22 above high threshold 0.44-1.03 [facility] DO Work Phone: 6.4\S\6.4 Normal <5.0 [facility] HeartDave 250 DO Work Phone: Comment on above: PERFORMED BY:[address] [place], [place] [id number] MEDICAL DIRECTORJE SHELLEY M.D. 39\S\39 Normal [facility]ha Garcia DO Work Phone: 197\S\197 above high threshold 35-149 [facility] Work Phone: Comment on above: TRIG ATP III CLASSIF ICATION TRIG less than 150 mg/dL Normal TRIG 150-199 mg/dL Borderline high TRIG 200-500 mg/dL High TRIG greater than 500 mg/dL Very high Standard traceable to the Center for Disease Conrtrol and Prevention (CDC) test method. 34\S\34 below low threshold 35-85 [facility] 250 DO Work Phone: Comment on above: HDL CHOL ATP-III CLA SSIFICATION Cardiovascular Risk HDL > or equal to 60 mg/dL LOW HDL < 40 mg/dL HIGH Negative Normal Negative [facility] 250 DO Work Phone: Comment on above: This is a duplicate Ashley SARS Antigen (PIRSCILA) result to be used for statistical tracking purpose only.PERFORMED BY:[facility] [place] [id number] MEDICAL DIRECTORJE SHELLEY M.D. CT Angio Coronary Arteries w ith Heart Flowon 03-11-2022 CT Angio Coronary Arteries with Heart Flow Normal -[facility] Heart-Radha 250 DO Work Phone: TH CTA CORONARY ART WITH HEA RTFLOW IF SCORE >30%.on 03-11-2022 TH CTA CORONARY ART WITH HEARTFLOW IF SCORE >30%. Addendum Begins Patient Name: FLOWER COBBDI ADDENDUM: NON-CARDIOVASCULAR FINDINGS INCLUDED LUNGS, AIRWAYS AND PLEURA Endotracheal / endobronchial lesion: Negative Nodule: Four 5 mm noncalcified left lower lobe, lung windows axial series 513, image 24. Even smaller in the right upper lobe, same series image 9. No others Airspace disease: Negative Pleural effusion: Negative Pneumothorax: Negative Other: No acute or contributory unanticipated findings INCLUDED NON-CARDIOVASCULAR BIANCA AND MEDIASTINUM Adenopathy: Negative Included esophagus: Unremarkable Other: No acute or contributory unanticipated findings INCLUDED BONES: No acute skeletal findings, noting less sensitivity and specificity without dedicated sagittal and coronal reformatted series. INCLUDED CHEST WALL No acute or contributory unanticipated findings INCLUDED UPPER ABDOMEN No acute or contributory unanticipated findings ------- NON-CARDIOVASCULAR IMPRESSION TWO TINY, SOLID, LESS THAN 6 MM TECHNICALLY INDETERMINATE PULMONARY NODULES. ACCORDING TO 2017 REVISION LUNG NODULE FOLLOW-UP GUIDELINES, FOLLOW-UP CHEST CT ONE YEAR FROM NOW WOULD BE OPTIONAL, EVEN IN A HIGH RISK PATIENT (SMOKING OR MALIGNANCY HISTORY); HOWEVER, THOSE RECOMMENDATIONS ARE BASED ON REVIEW OF A COMPLETE CHEST CT. THE KNEE, IF ANY, HER NEAR TERM FOLLOW-UP COMPLETE CHEST CT SHOULD BE BASED ON CLINICAL/RISK FACTORS Electronically signed by: TIMOTHY MACIAS MD Addendum Ends Patient Name: RITA COBB STUDY: CTA CORONARY ART WITH HEARTFLOW IF SCORE >30%.; 03/11/2022 11:13 am INDICATION: chest pain R07.9: Chest pain. COMPARISON: None. ACCESSION NUMBER(S): [id number] ORDERING CLINICIAN: ROSALINDA TORRES TECHNIQUE: Using multi-detector CT technology, Tito 64-slice scanner, axial, sequential imaging with retrospective gating was performed of the chest following the intravenous administration of contrast material. A low-osmolar contrast agent was used 75 ml of Omnipaque 350. Using prospective ECG gating, CT scan of the coronary arteries was performed without intravenous contrast. Coronary calcium scoring was performed according to the method of Agatston. The patient was premedicated with atenolol and 0.4 mg sublingual nitroglycerin per protocol for heart rate control and coronary dilation, respectively. For optimization of anatomic evaluation, multiplanar reconstruction, maximum intensity projections, and advanced 3-D off-line postprocessing were performed on a dedicated stand-alone workstation under the direct supervision of the interpreting physician. CT Dose-Length Product (DLP): 1087.6 mGy/cm CT Dose Reduction Employed: Yes iterative reconstruction FINDINGS: The left main is normal sized vessel that bifurcates into the LAD and circumflex. Calcified plaque without significant stenosis. LEFT ANTERIOR DESCENDING ARTERY: The LAD is a normal size vessel that wraps around the apex. Proximal heavily calcified plaque without significant stenosis. Mid vessel mixed plaque with significant stenosis. Distal mixed plaque without significant stenosis. LAD gives rise to 2 acute diagonal branches. D1: Proximal noncalcified plaque without significant stenosis. D2: Proximal mixed plaque without significant stenosis. LEFT CIRCUMFLEX ARTERY: The LCfx is a normal size vessel, which is non-dominant. Proximal noncalcified plaque with 50-70% luminal stenosis. Mid vessel noncalcified plaque without significant stenosis. LCfx gives rise to 2 obtuse marginal branches. OM1 small, noncalcified plaque without significant stenosis. OM2 proximal noncalcified plaque without significant stenosis. RIGHT CORONARY ARTERY: The RCA is a normal size vessel, which is dominant . It gives rise to a conus branch, kale branch, and 2 acute marginal branches. In its distal segment it bifurcates into the PDA and PV branch. Proximal calcified plaque without significant stenosis. Mid vessel mixed plaque without significant stenosis. Distal noncalcified plaque without significant stenosis. Right PDA proximal/mid noncalcified plaque without significant stenosis. Right PLV proximal noncalcified plaque without significant stenosis. Coronary artery calcium score 1491, 99th percentile for age, gender, and race in asymptomatic patients. CARDIAC CHAMBERS: The cardiac chambers demonstrate normal atrioventricular and ventriculoarterial concordance, and systemic and pulmonary venous return. LEFT VENTRICLE: Normal size End diastolic volume 104 ml, 45 ml/m2 LEFT VENTRICLE MASS: 135 gm, 59 gm/m2 RIGHT VENTRICLE: Normal size End diastolic volume 107 ml, 49 ml/m2 LEFT ATRIUM: Normal size End systolic volume 89 ml, 39 ml/m2 RIGHT ATRIUM: Normal size End systolic volume 83 ml, 36 ml/m2 INTERATRIAL SEPTUM: Intact. AORTIC VALVE: The (more content not included)... Normal [facility] Tobacco Screening.on 022 Adult depression screening assessment No [facility] Heart-Radha 250 DO Work Phone: Fall risk assessment a) No falls within the last year [facility]-Swain 250 DO Work Phone: Tobacco use status CPHS b) No M [facility] Heart-Radha 250 DO Work Phone: SURGICAL PATHOLOGYon 018 SURGICAL PATHOLOGY Specimen #: [id number] Physician: REUBEN CRAVEN M.D. FINAL DIAGNOSIS1. 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 Skin, left upper arm, shave biopsy ([id number]; 07/20/2018) - Intradermal nevus, neurotized (see comment).AF/CE/dss 07/26/2018 COMMENTMany thanks for involving us in this case of two melanocytic lesions fromthe right posterior shoulder and left upper arm of a 57-year-old woman. 1. Histologic sections demonstrate a junctional melanocytic proliferationwith bridging of adjacent rete ridges, papillary dermal fibrosis andunderlying sparse lymphocytic inflammation and melanoderma. An immunohistochemical stain for MART-1 and S[facility] are [facility]. These stains highlight a well-nested,symmetric junctional melanocytic proliferation, consistent with the abovediagnosis. 2. Histologic sections demonstrate an intradermal melanocytic proliferationthat matures and disperses to the base. The lesional cells have a spindled,neural appearance with descent into the dermis. Atypia and lymphoidaggregates are not identified. Immunohistochemical stains performed at the outside institution for MART-1and S100 are reviewed. These stains highlight the spindled cells within thedermis. Overall, these histologic and immunohistochemical features areconsistent with the diagnosis of a neurotized intradermal nevus.Thank you for sending this case in consultation. Please call theDermatopathology Consultation Service at [phone] with questions or ifadditional follow-up information becomes available regarding this patient.This case was reviewed in conjunction with the Dermatopathology Fellow, Dr.Carly Marija MD.Donald Zavaleta M.D. PhD(Electronic Signature) SPECIME N SUBMITTEDA: 11 SLIDES ([id number]) CLINICAL DATANone provided. of Report: 07/26/2018Date of Procedure: 07/23/2018Date of Receipt: 07/23/2018Submitted by: REUBEN CRAVEN M.D.Location: [id number] interpretation performed at [facility], [address] [place] [address]. Normal [facility] Comment on above: Performed By: #### S ####See report for performing lab information. Vital Signs Date Time Vital Sign Value Performing Clinician Facility 06-08-2024 15:44-0400 Body height 170.18 cm DO Charan Casey Work Phone: [facility] 06-08-2024 15:44-0400 Body mass index (BMI) [Ratio] 37 kg/m2 DO Charan Casey Work Phone: [facility] 06-08-2024 15:44-0400 Body weight 107.5 kg DO Charan Brysons Work Phone: [facility] 06-08-2024 15:44-0400 Diastolic blood pressure 76 mm[Hg] DO Charan Kuns Work Phone: [facility] 06-08-2024 15:44-0400 Heart rate 95 /min DO Charan Kuns Work Phone: [facility] 06-08-2024 15:44-0400 SaO2% (BldA) [Mass fraction] 96 % DO Charan Kuns Work Phone: [facility] 06-08-2024 15:44-0400 Systolic blood pressure 151 mm[Hg] DO Charan Kuns Work Phone: [facility] 05-31-2024 11:30-0400 Diastolic blood pressure 78 mm[Hg] DO Charan Brysons Work Phone: [facility] 05-31-2024 11:30-0400 Heart rate 68 /min DO Charan Brysons Work Phone: [facility] 05-31-2024 11:30-0400 Respiratory rate 16 /min DO Charan Brysons Work Phone: [facility] 05-31-2024 11:30-0400 SaO2% (BldA) [Mass fraction] 98 % DO Charan Brysons Work Phone: [facility] 05-31-2024 11:30-0400 Systolic blood pressure 152 mm[Hg] DO Charan Kuns Work Phone: [facility] 05-31-2024 10:53-0400 Inhaled oxygen flow rate 3 L/min DO Charan Kuns Work Phone: [facility] 05-31-2024 10:09-0400 Body height 170.18 cm DO Charan Brysons Work Phone: [facility] 05-31-2024 10:09-0400 Body weight 108.86 kg DO Charanheather Casey Work Phone: [facility] 03-01-2024 09:31-0400 Body height 170.18 cm DO Charanheather Masseys Work Phone: [facility] 03-01-2024 09:31-0400 Body mass index (BMI) [Ratio] 37.4 kg/m2 DO Charanheather Masseys Work Phone: [facility] 03-01-2024 09:31-0400 Body temperature 96.8 [degF] DO Charanheather Casey Work Phone: [facility] 03-01-2024 09:31-0400 Body weight 108.4 kg DO Charanheather Casey Work Phone: [facility] 03-01-2024 09:31-0400 Diastolic blood pressure 83 mm[Hg] DO Charanheather Casey Work Phone: [facility] 03-01-2024 09:31-0400 Heart rate 88 /min DO Charan Casey Work Phone: [facility] 03-01-2024 09:31-0400 Respiratory rate 16 /min DO Charan Casey Work Phone: [facility] 03-01-2024 09:31-0400 SaO2% (BldA) [Mass fraction] 98 % DO Charan Casey Work Phone: [facility] 03-01-2024 09:31-0400 Systolic blood pressure 146 mm[Hg] DO Charanheather Masseys Work Phone: [facility] 02-22-2024 14:26-0400 Body height 170.2 cm Rosalinda Torres MD Work Phone: [facility] 02-22-2024 14:26-0400 Body mass index (BMI) [Ratio] 37.12 kg/m2 Rosalinda Torres MD Work Phone: [facility] 02-22-2024 14:26-0400 Body weight 107.5 kg Rosalinda Torres MD Work Phone: [facility] 02-22-2024 14:26-0400 Diastolic blood pressure 60 mm[Hg] Rosalinda Torres MD Work Phone: [facility] 02-22-2024 14:26-0400 Heart rate 84 /min Rosalinda Torres MD Work Phone: [facility] 02-22-2024 14:26-0400 Systolic blood pressure 130 mm[Hg] Rosalinda Torres MD Work Phone: [facility] 12-30-2023 13:00-0500 Body height 170.18 cm Charan Casey Other [facility] 12-30-2023 13:00-0500 Body mass index (BMI) [Ratio] 37.59 kg/m2 Charan Casey Other [facility] [employer] Other 12-30-2023 13:00-0500 Body temperature 98.3 [degF] Charan Casey Other [employer] [facility] [employer] Other 12-30-2023 13:00-0500 Body weight 108.86 kg Charan Casey Other [facility] 12-30-2023 13:00-0500 Diastolic blood pressure 80 mm[Hg] Charan Casey Other [facility] 12-30-2023 13:00-0500 Respiratory rate 18 /min Charan Casey Other [facility] Other 12-30-2023 13:00-0500 SaO2% (BldA) [Mass fraction] 96 % Charan Casey Other [facility] [employer] Other 12-30-2023 13:00-0500 Systolic blood pressure 150 mm[Hg] Charan Casey Other [facility] 10-21-2023 12:45-0500 Body height 170.18 cm Blas Bellamy Other [facility] Other 10-21-2023 12:45-0500 Body mass index (BMI) [Ratio] 37.43 kg/m2 Blas Bellamy Other [facility] Other 10-21-2023 12:45-0500 Body temperature 97.6 [degF] Blas Bellamy Other [facility] Other 10-21-2023 12:45-0500 Body weight 108.41 kg Blas Bellamy Other [facility] Other 10-21-2023 12:45-0500 Diastolic blood pressure 90 mm[Hg] Blas Bellamy Other [facility] Other 10-21-2023 12:45-0500 Respiratory rate 18 /min Blas Bellamy Other [facility] Other 10-21-2023 12:45-0500 SaO2% (BldA) [Mass fraction] 96 % Blas Bellamy Other [facility] Other 10-21-2023 12:45-0500 Systolic blood pressure 143 mm[Hg] Blas Bellamy Other [facility] Other 10-06-2023 09:04-0500 Diastolic blood pressure 74 mm[Hg] DO Charan Casey Work Phone: [facility] 10-06-2023 09:04-0500 Heart rate 76 /min DO Charan Casey Work Phone: [facility] 10-06-2023 09:04-0500 Respiratory rate 16 /min DO Charan Casey Work Phone: [facility] 10-06-2023 09:04-0500 SaO2% (BldA) [Mass fraction] 96 % DO Charan Casey Work Phone: [facility] 10-06-2023 09:04-0500 Systolic blood pressure 159 mm[Hg] DO Charan Casey Work Phone: [facility] 10-06-2023 07:01-0500 Body height 170.18 cm DO Charan Casey Work Phone: [facility] 10-06-2023 07:01-0500 Body weight 106.59 kg DO Charan Casey Work Phone: [facility] 09-15-2023 10:20-0400 Body height 170.18 cm Elpidio Sole Other [facility] Other 09-15-2023 10:20-0400 Body mass index (BMI) [Ratio] 37.46 kg/m2 Elpidio Sole Other [facility] Other 09-15-2023 10:20-0400 Body temperature 97.2 [degF] Elpidio Sole Other [facility] Other 09-15-2023 10:20-0400 Body weight 108.5 kg Elpidio Sole Other [facility] Other 09-15-2023 10:20-0400 Diastolic blood pressure 80 mm[Hg] Elpidio Sole Other [facility] Other 09-15-2023 10:20-0400 Respiratory rate 18 /min Elpidio Sole Other [facility] [employer] Other 09-15-2023 10:20-0400 SaO2% (BldA) [Mass fraction] 99 % Elpidio Sole Other [facility] [employer] Other 09-15-2023 10:20-0400 Systolic blood pressure 140 mm[Hg] Elpidio Sole Other [facility] [employer] Other 09-08-2023 09:00-0400 Diastolic blood pressure 88 mm[Hg] DO Charan Casey Work Phone: [facility] 09-08-2023 09:00-0400 Heart rate 69 /min DO Charan Casey Work Phone: [facility] 09-08-2023 09:00-0400 Respiratory rate 16 /min DO Charan Casey Work Phone: [facility] 09-08-2023 09:00-0400 SaO2% (BldA) [Mass fraction] 96 % DO Charan Casey Work Phone: [facility] 09-08-2023 09:00-0400 Systolic blood pressure 146 mm[Hg] DO Charan Casey Work Phone: [facility] 09-08-2023 08:17-0400 Inhaled oxygen flow rate 3 L/min DO Charan Casey Work Phone: [facility] 09-08-2023 07:21-0400 Body height 170.18 cm DO Charan Casey Work Phone: [facility] 09-08-2023 07:21-0400 Body weight 108.86 kg DO Charan Casey Work Phone: [facility] 08-17-2023 09:30-0400 Body height 170.18 cm Blas Ortiz Other [facility] Other 08-17-2023 09:30-0400 Body mass index (BMI) [Ratio] 38.06 kg/m2 Blas Erastogaurav Other [facility] Other 08-17-2023 09:30-0400 Body weight 110.22 kg Blas Erastogaurav Other [facility] Other 08-11-2023 09:20-0400 Body height 170.18 cm Thierno Chatterjee Other [facility] Other 08-11-2023 09:20-0400 Body mass index (BMI) [Ratio] 38.06 kg/m2 Thierno Chatterjee Other [facility] Other 08-11-2023 09:20-0400 Body weight 110.22 kg Thierno Chatterjee Other [facility] Other 08-11-2023 09:20-0400 Diastolic blood pressure 90 mm[Hg] Thierno Chatterjee Other [facility] Other 08-11-2023 09:20-0400 Systolic blood pressure 152 mm[Hg] Thierno Chatterjee Other [facility] Other 08-05-2023 08:15-0400 Body height 170.18 cm Charan Casey Other [facility] Other 08-05-2023 08:15-0400 Body mass index (BMI) [Ratio] 38.21 kg/m2 Charan Casey Other [facility] Other 08-05-2023 08:15-0400 Body weight 110.68 kg Charan Casey Other [facility] Other 08-05-2023 08:15-0400 Diastolic blood pressure 60 mm[Hg] Charan Casey Other [facility] Other 08-05-2023 08:15-0400 Respiratory rate 18 /min Charan Casey Other [facility] Other 08-05-2023 08:15-0400 SaO2% (BldA) [Mass fraction] 95 % Charan Casey Other [employer] Other 08-05-2023 08:15-0400 Systolic blood pressure 126 mm[Hg] Charan Casey Other [facility] Other 05-19-2023 12:30-0400 Body height 170.18 cm Charan Casey Other [employer] Other 05-19-2023 12:30-0400 Diastolic blood pressure 74 mm[Hg] Chaarn Casey Other [facility] Other 05-19-2023 12:30-0400 Respiratory rate 18 /min Charan Casey Other [facility] Other 05-19-2023 12:30-0400 SaO2% (BldA) [Mass fraction] 97 % Charan Casey Other [facility] Other 05-19-2023 12:30-0400 Systolic blood pressure 140 mm[Hg] Charan Casey Other [employer] Other 04-30-2023 10:17-0400 Body height 170.18 cm [facility]an [facility] DO Work Phone: 04-30-2023 10:17-0400 Body mass index (BMI) [Ratio] Medical Reason Not Done Charan Casey Work Phone: [facility] [employer] DO Work Phone: 04-30-2023 10:17-0400 Diastolic blood pressure 64 mm[Hg] Charan Casey Work Phone: [facility] [employer] DO Work Phone: 04-30-2023 10:17-0400 Heart rate 72 /min Charan Casey Work Phone: [facility] [employer] DO Work Phone: 04-30-2023 10:17-0400 Systolic blood pressure 128 mm[Hg] Charan Casey Work Phone: [facility] [employer] 250 DO Work Phone: 03-31-2023 15:30-0400 Body height 170.18 cm Charan Casey Other [facility] Other 03-31-2023 15:30-0400 Diastolic blood pressure 64 mm[Hg] Charan Casey Other [facility] Other 03-31-2023 15:30-0400 Respiratory rate 18 /min Charan Casey Other [facility] Other 03-31-2023 15:30-0400 SaO2% (BldA) [Mass fraction] 98 % Charan Casey Other [facility] Other 03-31-2023 15:30-0400 Systolic blood pressure 126 mm[Hg] Charan Casey Other [facility] Other 03-10-2023 15:40-0400 Body height 170.18 cm Elpidio Sole Other [facility] Other 03-10-2023 15:40-0400 Diastolic blood pressure 86 mm[Hg] Elpidio Sole Other [facility] Other 03-10-2023 15:40-0400 Respiratory rate 16 /min Elpidio Sole Other [facility] Other 03-10-2023 15:40-0400 SaO2% (BldA) [Mass fraction] 99 % Elpidio Sole Other [facility] Other 03-10-2023 15:40-0400 Systolic blood pressure 135 mm[Hg] Elpidio Sole Other [facility] Other 03-04-2023 15:00-0400 Body height 170.18 cm Federico Sepulveda Other [facility] Other 03-04-2023 15:00-0400 Body mass index (BMI) [Ratio] 37.43 kg/m2 Federico Sepulveda Other [facility] Other 03-04-2023 15:00-0400 Body weight 108.41 kg Williamer Coco Other [facility] Other 03-04-2023 15:00-0400 Diastolic blood pressure 83 mm[Hg] Federico Hanno Other [facility] Other 03-04-2023 15:00-0400 SaO2% (BldA) [Mass fraction] 98 % Federico Sepulveda Other [facility] Other 03-04-2023 15:00-0400 Systolic blood pressure 157 mm[Hg] Federico Sepulveda Other [facility] Other 09-24-2022 16:00-0400 Body height 170.18 cm Elpidio Sole Other [facility] Other 09-24-2022 16:00-0400 Body mass index (BMI) [Ratio] 37.37 kg/m2 Elpidio Sole Other [facility] Other 09-24-2022 16:00-0400 Body temperature 96.4 [degF] Elpidio Sole Other [facility] Other 09-24-2022 16:00-0400 Body weight 108.23 kg Elpidio Sole Other [facility] Other 09-24-2022 16:00-0400 Diastolic blood pressure 64 mm[Hg] Elpidio Sole Other [facility] Other 09-24-2022 16:00-0400 Respiratory rate 16 /min Elpidio Sole Other [facility] Other 09-24-2022 16:00-0400 SaO2% (BldA) [Mass fraction] 98 % Elpidio Sole Other [facility] Other 09-24-2022 16:00-0400 Systolic blood pressure 120 mm[Hg] Elpidio Sole Other [facility] Other 09-02-2022 14:00-0400 Body height 170.18 cm Charan Jacinto Other [facility] Other 09-02-2022 14:00-0400 Body mass index (BMI) [Ratio] 37.9 kg/m2 Charan Casey Other [facility] Other 09-02-2022 14:00-0400 Body weight 109.77 kg Charan Casey Other [facility] Other 09-02-2022 14:00-0400 Diastolic blood pressure 70 mm[Hg] Charan Casey Other [facility] Other 09-02-2022 14:00-0400 Respiratory rate 16 /min Charan Casey Other [facility] Other 09-02-2022 14:00-0400 SaO2% (BldA) [Mass fraction] 97 % Charan Casey Other [facility] Other 09-02-2022 14:00-0400 Systolic blood pressure 112 mm[Hg] Charan Casey Other [employer] Other 07-27-2022 19:56-0400 Body height 170.18 cm DO Charanheather Masseys Work Phone: [facility] 07-27-2022 19:56-0400 Body temperature 99.1 [degF] DO Charan Brysons Work Phone: [facility] 07-27-2022 19:56-0400 Body weight 110.55 kg DO Charanheather Masseys Work Phone: [facility] 07-27-2022 19:56-0400 Diastolic blood pressure 81 mm[Hg] DO Charan Kuns Work Phone: [facility] 07-27-2022 19:56-0400 Heart rate 89 /min DO Charan Casey Work Phone: [facility] 07-27-2022 19:56-0400 Respiratory rate 20 /min DO Charan Casey Work Phone: [facility] 07-27-2022 19:56-0400 SaO2% (BldA) [Mass fraction] 98 % DO Charan Casey Work Phone: [facility] 07-27-2022 19:56-0400 Systolic blood pressure 142 mm[Hg] DO Charan Casey Work Phone: [facility] 05-08-2022 08:51-0400 Body height 170.18 cm Charan Casey Work Phone: [facility] DO Work Phone: 05-08-2022 08:51-0400 Body mass index (BMI) [Ratio] 38.06 kg/m2 Charan Casey Work Phone: [facility] DO Work Phone: 05-08-2022 08:51-0400 Body surface area Derived from formula 2.2 m2 Charan Casey Work Phone: [facility] DO Work Phone: 05-08-2022 08:51-0400 Body weight 110.22 kg Charan Casey Work Phone: [facility] 250 DO Work Phone: 05-08-2022 08:51-0400 Diastolic blood pressure 70 mm[Hg] Charan P Brysons Work Phone: [facility] 250 DO Work Phone: 05-08-2022 08:51-0400 Heart rate 72 /min Charan P Brysons Work Phone: [facility] [employer] 250 DO Work Phone: 05-08-2022 08:51-0400 Systolic blood pressure 136 mm[Hg] Charan Casey Work Phone: [facility] [employer] 250 DO Work Phone: 04-30-2022 17:00-0400 Body height 170.18 cm Federico Sepulveda Other [facility] [employer] Other 04-30-2022 17:00-0400 Body mass index (BMI) [Ratio] 38.52 kg/m2 Federico Sepulveda Other [facility] [employer] Other 04-30-2022 17:00-0400 Body temperature 97.1 [degF] Federico Sepulveda Other [facility] [employer] Other 04-30-2022 17:00-0400 Body weight 111.59 kg Federico Sepulveda Other [facility] [employer] Other 04-30-2022 17:00-0400 Diastolic blood pressure 86 mm[Hg] Federico Sepulveda Other [employer] Other 04-30-2022 17:00-0400 SaO2% (BldA) [Mass fraction] 97 % Federico Sepulveda Other [facility] Other 04-30-2022 17:00-0400 Systolic blood pressure 148 mm[Hg] Federico Hanno Other [employer] Other 04-14-2022 11:30-0400 Body height 170.18 cm Charanheather Masseybryn Other [facility] Other 04-14-2022 11:30-0400 Body mass index (BMI) [Ratio] 38.52 kg/m2 Charanheather Masseybryn Other [facility] Other 04-14-2022 11:30-0400 Body weight 111.59 kg Charan Casey Other [facility] Other 04-14-2022 11:30-0400 Diastolic blood pressure 70 mm[Hg] Charna Casey Other [facility] Other 04-14-2022 11:30-0400 Respiratory rate 16 /min Charan Jacinto Other [facility] Other 04-14-2022 11:30-0400 SaO2% (BldA) [Mass fraction] 99 % Charan Masseybryn Other [facility] Other 04-14-2022 11:30-0400 Systolic blood pressure 126 mm[Hg] Charan Casey Other [facility] Other 02-20-2022 17:00-0400 Body mass index (BMI) [Ratio] 38.56 kg/m2 Elpidio Sole Other [facility] Other 02-20-2022 17:00-0400 Body temperature 97.2 [degF] Elpidio Sole Other [facility] Other 02-20-2022 17:00-0400 Body weight 111.68 kg Elpidio Sole Other [facility] Other 02-20-2022 17:00-0400 Diastolic blood pressure 79 mm[Hg] Elpidio Sole Other [employer] Other 02-20-2022 17:00-0400 Respiratory rate 18 /min Elpidio Sole Other [employer] Other 02-20-2022 17:00-0400 SaO2% (BldA) [Mass fraction] 98 % Elpidio Sole Other [employer] Other 02-20-2022 17:00-0400 Systolic blood pressure 134 mm[Hg] Elpidio Sole Other [facility] [employer] Other 02-20-2022 12:28-0400 Body height 170.18 cm Charan Casey Work Phone: [facility] [employer] 250 DO Work Phone: 02-20-2022 12:28-0400 Body mass index (BMI) [Ratio] 38.37 kg/m2 Charan Casey Work Phone: [facility] [employer] 250 DO Work Phone: 02-20-2022 12:28-0400 Body surface area Derived from formula 2.2 m2 Charan Casey Work Phone: [facility] [employer] DO Work Phone: 02-20-2022 12:28-0400 Body weight 111.13 kg Charan Casey Work Phone: [facility] DO Work Phone: 02-20-2022 12:28-0400 Diastolic blood pressure 71 mm[Hg] Charan Casey Work Phone: [facility] [employer] 250 DO Work Phone: 02-20-2022 12:28-0400 Heart rate 72 /min Charan Casey Work Phone: [facility] [employer] 250 DO Work Phone: 02-20-2022 12:28-0400 Systolic blood pressure 131 mm[Hg] Charan Casey Work Phone: [facility] [employer] 250 DO Work Phone: 02-07-2022 09:45-0500 Body height 170.18 cm Charan Casey Other [facility] Other 02-07-2022 09:45-0500 Body mass index (BMI) [Ratio] 38.27 kg/m2 Charan Casey Other [facility] Other 02-07-2022 09:45-0500 Body weight 110.86 kg Charan Casey Other [facility] Other 02-07-2022 09:45-0500 Diastolic blood pressure 82 mm[Hg] Charan Casey Other [facility] Other 02-07-2022 09:45-0500 Respiratory rate 18 /min Charan Casey Other [facility] Other 02-07-2022 09:45-0500 SaO2% (BldA) [Mass fraction] 95 % Charan Casey Other [facility] Other 02-07-2022 09:45-0500 Systolic blood pressure 148 mm[Hg] Charan Casey Other [facility] Other 12-31-2021 17:20-0500 Body height 170.18 cm Thierno Chatterjee Other [facility] Other 12-31-2021 17:20-0500 Body mass index (BMI) [Ratio] 38.84 kg/m2 Thierno Chatterjee Other [facility] Other 12-31-2021 17:20-0500 Body weight 112.49 kg Thierno Chatterjee Other [facility] Other 12-03-2021 15:00-0500 Body height 170.18 cm Charan Casey Other [facility] Other 10-01-2021 17:15-0400 Body height 170.18 cm Blas Ortiz Other [facility] Other Encounters Encounter Date Encounter Type Care Provider Facility Start: 06-13-2024 End: 06-13-2024 ambulatory DO Charan Casey Work Phone: [facility] Work Phone: Start: 06-13-2024 End: 06-13-2024 Patient encounter procedure DO Charan Casey Work Phone: [facility] Work Phone: Start: 06-08-2024 End: 06-08-2024 ambulatory DO Charan Casey Work Phone: [facility] Work Phone: Start: 06-08-2024 End: 06-08-2024 Patient encounter procedure DO Charan Casey Work Phone: [facility] Work Phone: Start: 05-31-2024 Non-patient / Non-visit DO Yeison Casey Work Phone: [facility] Work Phone: Start: 05-31-2024 End: 05-31-2024 Admission to same day surgery center DO Charan Casey Work Phone: [facility] Work Phone: Start: 05-31-2024 End: 05-31-2024 ambulatory DO Charan Casey Work Phone: [facility] Work Phone: Start: 05-23-2024 End: 05-23-2024 ambulatory DO Charan Casey Work Phone: [facility] Work Phone: Start: 05-23-2024 End: 05-23-2024 Patient encounter procedure DO Charan Casey Work Phone: [facility] [place] Work Phone: Start: 05-13-2024 Non-patient / Non-visit DO Yeison heather Casey Work Phone: [facility] [place] Work Phone: Start: 04-19-2024 Non-patient / Non-visit DO Yeison Casey Work Phone: [facility] [place] Work Phone: Start: 03-18-2024 Non-patient / Non-visit DO Yeison Casey Work Phone: [facility] Work Phone: Start: 03-17-2024 End: 03-17-2024 ambulatory DO Charan Casey Work Phone: [facility] Work Phone: Start: 03-17-2024 End: 03-17-2024 Patient encounter procedure DO Charan Casey Work Phone: [facility] [place] Work Phone: Start: 03-05-2024 End: 03-05-2024 Patient encounter procedure DO Charan Casey Work Phone: [facility] [place] Work Phone: Start: 03-05-2024 End: 03-05-2024 ambulatory DO Charan Casey Work Phone: [facility] Work Phone: Start: 03-01-2024 End: 03-01-2024 ambulatory DO Charan Casey Work Phone: [facility] Work Phone: Start: 03-01-2024 End: 03-01-2024 Patient encounter procedure DO Charan Casey Work Phone: [facility] Nephrology Work Phone: Start: 02-29-2024 End: 02-29-2024 Patient encounter procedure DO Charan Casey Work Phone: [facility] Start: 02-29-2024 End: 02-29-2024 ambulatory DO Charan Casey Work Phone: [facility] Work Phone: Start: 02-23-2024 Non-patient / Non-visit DO Yeison Casey Work Phone[facility] Work Phone: Start: 02-22-2024 End: 02-22-2024 ambulatory ROSALINDA Morales 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; Hyperlipidemia, unspecified hyperlipidemia type; Obstructive sleep apnea syndrome; Class 2 obesity with body mass index (BMI) of 37.0 to 37.9 in adult, unspecified obesity type, unspecified whether serious comorbidity present; Insulin-requiring or dependent type II diabetes mellitus ([facility]) Start: 02-17-2024 Non-patient / Non-visit DO Yeison heather Casey Work Phone: [facility] Work Phone: Start: 02-12-2024 Non-patient / Non-visit DO Yeison heather Brysonbryn Work Phone: [facility] Work Phone: Start: 02-09-2024 End: 02-09-2024 ambulatory SHAINA MUNROE Not Available Start: 02-04-2024 End: 02-04-2024 Patient encounter procedure DO Charan Casey Work Phone: [facility] Work Phone: Start: 01-11-2024 End: 01-11-2024 ambulatory Charan Casey Other [facility] Other Start: 01-11-2024 Telephone encounter Charan Casey [facility] Start: 12-31-2023 End: 12-31-2023 ambulatory Charan Casey Other [facility] Other Start: 12-31-2023 Telephone encounter Charan Casey [facility] Start: 12-30-2023 End: 12-30-2023 Patient encounter procedure DO Charan Casey Work Phone: [facility] Start: 12-30-2023 End: 12-30-2023 ambulatory DO Charan Casey Work Phone: [facility] Work Phone: Start: 12-30-2023 Office outpatient vi sit 15 minutes Charan Casey [facility] Start: 12-30-2023 End: 12-30-2023 Patient encounter procedure DO Charan Casey Work Phone: [facility]- Start: 11-26-2023 End: 11-26-2023 Patient encounter procedure DO Charan Casey Work Phone: [facility] Start: 11-26-2023 End: 11-26-2023 ambulatory DO Charan Casey Work Phone: [facility] Work Phone: Start: 11-06-2023 End: 11-06-2023 ambulatory Charan Casey Other [facility] Other Start: 11-06-2023 Telephone encounter Charan Casey [facility] [employer] Start: 11-05-2023 Diabetic care education [facility] Start: 11-05-2023 Encounter by ed jackson [facility] Start: 11-05-2023 End: 11-05-2023 ambulatory DO Charan Casey Work Phone: [facility] Other Start: 11-05-2023 End: 11-05-2023 Discharged Recurring DO Charan Casey Work Phone: [facility] Work Phone: Start: 11-05-2023 Registered Recurring DO Charan Casey Work Phone: [facility] Work Phone: Start: 11-03-2023 End: 11-03-2023 ambulatory Charan Casey Other [facility] Other Start: 11-03-2023 Telephone encounter Charan Casey [facility] [place] Start: 10-28-2023 End: 10-28-2023 ambulatory Blas Ortiz Other [facility] Other Start: 10-28-2023 Office outpatient vi sit 15 minutes Blas Ortiz [facility] [place] Start: 10-28-2023 Telephone encounter Blas Ortiz [facility] [place] Start: 10-28-2023 End: 10-28-2023 Patient encounter procedure DO Charan Casey Work Phone: [facility] [place] Work Phone: Start: 10-21-2023 End: 10-21-2023 ambulatory Blas Bellamy Other [facility] Other Start: 10-21-2023 Office outpatient vi sit 15 minutes Blas Hebertaker [facility] Urgent Care [facility] Start: 10-21-2023 End: 10-21-2023 Patient encounter procedure DO Charan Casey Work Phone: [facility] Urgent Care [place] Work Phone: Start: 10-19-2023 End: 10-19-2023 ambulatory Blas Ortiz Other [facility] Other Start: 10-19-2023 Telephone encounter Blas Ortiz [facility] [place] [employer] [place] [employer] [place] Start: 10-12-2023 End: 10-12-2023 ambulatory SHAINA MUNROE Not Available Start: 10-07-2023 End: 10-07-2023 ambulatory Charan Casey Other [facility] Other Start: 10-07-2023 Telephone encounter Charan Casey [facility] [place] Start: 10-06-2023 End: 10-06-2023 Admission to same day surgery center DO Charan Casey Work Phone: [facility] Work Phone: Start: 10-06-2023 End: 10-06-2023 ambulatory DO Charan Casey Work Phone: [facility] Work Phone: Start: 09-23-2023 End: 09-23-2023 ambulatory Blas Ortiz Other [facility] Other Start: 09-23-2023 Office outpatient vi sit 15 minutes Blas Ortiz [facility] [place] [employer] [place] [employer] [place] Start: 09-15-2023 End: 09-15-2023 ambulatory Elpidio Sole Other [facility] Other Start: 09-15-2023 Office outpatient vi sit 25 minutes Elpidio Sole [facility] Start: 09-14-2023 End: 09-14-2023 Patient encounter procedure DO Charan Casey Work Phone: [facility] Start: 09-14-2023 End: 09-14-2023 ambulatory DO Charan Casey Work Phone: [facility] Work Phone: Start: 09-08-2023 (Procedure) Short Blas Ortiz [facility] Start: 09-08-2023 End: 09-08-2023 Admission to same day surgery center DO Charan Casey Work Phone: [facility] Work Phone: Start: 09-08-2023 End: 09-08-2023 ambulatory DO Charan Casey Work Phone: [facility] Work Phone: Start: 08-25-2023 End: 08-25-2023 ambulatory Imad Asaad Other [facility] Other Start: 08-25-2023 Telephone encounter Imad Asaad [facility] [employer] Start: 08-18-2023 End: 08-18-2023 ambulatory Charan Casey Other [facility] Other Start: 08-18-2023 Telephone encounter Charan Casey [facility] [place] Start: 08-17-2023 Office outpatient vi sit 25 minutes Blas Ortiz [facility] [place] [employer] [place] [employer] [place] Start: 08-17-2023 End: 08-17-2023 Patient encounter procedure DO Charan Casey Work Phone: [facility] Start: 08-17-2023 End: 08-17-2023 ambulatory Charan Casye [facility] [employer] Other Start: 08-11-2023 Office outpatient vi sit 15 minutes Thierno Chatterjee [facility] Start: 08-11-2023 End: 08-11-2023 Patient encounter procedure DO Charan Casey Work Phone: [facility] Start: 08-11-2023 End: 08-11-2023 ambulatory DO Charan Casey Work Phone: [facility] Work Phone: Start: 08-05-2023 End: 08-05-2023 ambulatory Charan Casey Other [facility] [employer] Other Start: 08-05-2023 Office outpatient vi sit 25 minutes Charan Casey [facility] [place] Start: 07-02-2023 End: 07-02-2023 ambulatory Charan Casey Other [facility] [employer] Other Start: 07-02-2023 Telephone encounter Charan Casey [facility] [place] Start: 06-08-2023 End: 06-08-2023 ambulatory DO Charan Jacinto Work Phone: [facility] Work Phone: Start: 06-08-2023 End: 06-08-2023 Discharged Recurring DO Charanheather Masseybryn Work Phone: [facility]-Physical Therapy [address] Start: 05-28-2023 End: 05-28-2023 ambulatory Renée Watts Other [facility] [employer] Other Start: 05-28-2023 Diabetic care education Renée Watts [facility] Start: 05-28-2023 Registered Recurring DO Charan Casey Work Phone: [facility] Work Phone: Start: 05-19-2023 Office outpatient vi sit 25 minutes Charan Casey [facility] [place] Start: 05-19-2023 End: 05-19-2023 ambulatory DO Charan Casey Work Phone: [facility] Work Phone: Start: 05-19-2023 End: 05-19-2023 Patient encounter procedure DO Charan Casey Work Phone: [facility] Start: 05-05-2023 End: 05-05-2023 ambulatory Charan Casey Other [facility] Other Start: 05-05-2023 Telephone encounter Charan ODOM [facility] [place] Start: 04-30-2023 Office outpatient vi sit 25 minutes Charan Casey Work Phone: [facility] 250 DO Work Phone: Start: 04-30-[address] Charan Casey Facility: Start: 04-13-2023 End: 04-13-2023 ambulatory ACOSTA CASTRO Facility:[facility]1 Start: 04-07-2023 End: 04-08-2023 ambulatory BLANKA OLGUIN Facility:[facility] Start: 04-06-2023 Encounter for preprocedural laboratory examination ACOSTA CASTRO [facility] Start: 04-06-2023 End: 04-06-2023 ambulatory Charan Casey Other [facility] Other Start: 04-06-2023 Telephone encounter Charan Casey [facility] [place] Start: 03-31-2023 Office outpatient vi sit 25 minutes Charan Casey [facility] [place] Start: 03-31-2023 End: 04-01-2023 ambulatory ACOSTA CASTRO [facility] [employer] Other Start: 03-31-2023 End: 04-01-2023 Encounter for preprocedural laboratory examination ACOSTA CASTRO Facility:[facility]1 Start: 03-26-2023 End: 03-26-2023 ambulatory Charan Casey Other [facility] Other Start: 03-26-2023 Telephone encounter Charan Casey [facility] Start: 03-23-2023 End: 03-24-2023 ambulatory BLANKA OLGUIN Facility:[facility] Start: 03-10-2023 End: 03-10-2023 ambulatory Elpidio Sole Other [facility] Other Start: 03-10-2023 Office outpatient vi sit 25 minutes Elpidio Sole [facility] Start: 03-06-2023 End: 03-06-2023 ambulatory DO Charan Casey Work Phone: [facility] Work Phone: Start: 03-06-2023 End: 03-06-2023 Patient encounter procedure DO Charan Casey Work Phone: [facility] Start: 03-04-2023 Office outpatient vi sit 15 minutes Federico Sepulveda [facility] Start: 03-04-2023 Telephone encounter Charan Casey [facility] Start: 03-04-2023 End: 03-04-2023 ambulatory DO Charan Casey Work Phone: [facility] Other Start: 03-04-2023 End: 03-04-2023 Patient encounter procedure DO Charan Casey Work Phone: [facility] Work Phone: Start: 03-03-2023 End: 03-04-2023 ambulatory BLANKA OLGUIN Facility:H1 Start: 02-17-2023 End: 02-18-2023 ambulatory BRODERICK FLOR Facility:H1 Start: 02-16-2023 End: 02-16-2023 ambulatory Charan Casey Other [facility] Other Start: 02-16-2023 Telephone encounter Charan Casey [facility] Start: 02-05-2023 End: 02-05-2023 ambulatory Charan Casey Other [facility] Other Start: 02-05-2023 Telephone encounter Charan Casey [facility] Start: 02-03-2023 End: 02-04-2023 ambulatory BRODERICK FLOR Facility:H1 Start: 01-27-2023 End: 01-27-2023 Patient encounter procedure DO Charan Casey Work Phone: [facility] Work Phone: Start: 01-27-2023 End: 01-27-2023 ambulatory DO Charan Casey Work Phone: [facility] Work Phone: Start: 01-27-2023 Immune Injection one Vaccine (Admin Chg) Renée Watts [facility] Start: 01-20-2023 End: 01-21-2023 ambulatory BLANKA OLGUIN Facility:H1 Start: 01-19-2023 End: 01-19-2023 ambulatory Charan Casey Other [facility] Other Start: 01-19-2023 Telephone encounter Charan Casey [facility] Start: 12-29-2022 End: 12-31-2022 ambulatory BLANKA OLGUIN Facility:H1 Start: 12-25-2022 Encounter for preprocedural cardiovascular examination [facility] CASTRO [facility] Start: 12-25-2022 Encounter for preprocedural laboratory examination [facility] CASTRO [facility] Start: 12-23-2022 End: 12-24-2022 ambulatory ACOSTA CASTRO Facility:H1 Start: 12-23-2022 End: 12-24-2022 Encounter for preprocedural cardiovascular examination ACOSTA CASTRO Facility:H1 Start: 11-26-2022 End: 11-27-2022 ambulatory BRODERICK FLOR Facility:H1 Start: 11-12-2022 End: 11-13-2022 ambulatory BLANKA ROSENBERGGAURAV Facility:H1 Start: 11-12-[address] Charan Casey Facility: Start: 10-28-2022 ([facility] INJ) [facility] Injection Eliud Rod [facility] Start: 10-28-2022 End: 10-28-2022 ambulatory DO Charan Casey Work Phone: [facility] Work Phone: Start: 10-28-2022 End: 10-28-2022 Patient encounter procedure DO Charan Casey Work Phone: [facility] Start: 10-16-2022 ([facility] C Vac) [facility] Co vid Vaccine Renée [facility] Start: 10-16-2022 ([facility] INJ) [facility]ée [facility] Start: 10-16-2022 Telephone encounter [facility] Start: 10-16-2022 End: 10-16-2022 ambulatory DO Charan Casey Work Phone: [facility] Other Start: 10-16-2022 End: 10-16-2022 Patient encounter procedure DO Charan Casey Work Phone: [facility] Start: 10-15-2022 End: 10-15-2022 ambulatory DO Charan Casey Work Phone: [facility] Work Phone: Start: 10-15-2022 End: 10-15-2022 Patient encounter procedure DO Charan Casey Work Phone: [facility] [address] Start: 10-13-2022 End: 10-13-2022 ambulatory DO Charan Casey Work Phone: [facility] Work Phone: Start: 10-13-2022 End: 10-13-2022 Patient encounter procedure DO Charan Casey Work Phone: [facility] [address] Start: 09-24-2022 End: 09-24-2022 ambulatory Elpidio Sole Other [facility] Other Start: 09-24-2022 Office outpatient vi sit 25 minutes Elpidio Sole [facility] [place] Start: 09-02-2022 End: 09-02-2022 ambulatory Charan Casey Other [facility] Other Start: 09-02-2022 Office outpatient vi sit 25 minutes Charan Casey [facility] [place] Start: 08-13-2022 End: 08-13-2022 Patient encounter procedure DO Charan Casey Work Phone: [facility] Start: 08-07-2022 End: 08-07-2022 ambulatory Charan Casey Other [facility] Other Start: 08-07-2022 Telephone encounter Charan Casey [facility] [place] Start: 07-27-2022 End: 07-27-2022 Emergency department patient visit DO Charan Casey Work Phone: [facility] Start: 07-16-2022 End: 07-16-2022 ambulatory Charan Casey Other [facility] Other Start: 07-16-2022 Telephone encounter Charan Casey [facility] [place] Start: 07-02-2022 End: 07-02-2022 ambulatory Charan Casey Other [facility] Other Start: 07-02-2022 Telephone encounter Charan Casey [facility] [place] Start: 05-08-2022 Office outpatient vi sit 25 minutes Charan Casey Work Phone: [facility] [address] DO Work Phone: Start: 04-30-2022 End: 04-30-2022 ambulatory Federico Sepulveda Other [facility] Other Start: 04-30-2022 Office outpatient vi sit 10 minutes Federico Hanno [facility] Start: 04-14-2022 End: 04-14-2022 ambulatory Charan Casey Other [facility] [employer] Other Start: 04-14-2022 Office outpatient vi sit 25 minutes Charan Casey [facility] [place] Start: 04-07-2022 End: 04-07-2022 ambulatory Charan Casey Other [facility] [employer] Other Start: 04-07-2022 Telephone encounter Charan Casey [facility] [place] Start: 04-02-2022 End: 04-02-2022 ambulatory Charan Casey Other [facility] [employer] Other Start: 04-02-2022 Telephone encounter Charan Casey [facility] [place] Start: 03-31-2022 End: 03-31-2022 ambulatory Charan Casey Other [facility] [employer] Other Start: 03-31-2022 Telephone encounter Charan Casey [facility] [place] Start: [facility]-2022 [facility]: Rosalinda Torres, Status: Pen, Time: 1:00 PM Charan Casey Work Phone: [facility] DO Work Phone: Start: 03-26-2022 Chart Update Charan Casey Work Phone: [facility] DO Work Phone: Start: 03-13-2022 End: 03-13-2022 ambulatory Charan Casey Other [facility] Other Start: 03-13-2022 Telephone encounter Charan Casey [facility] [place] Start: 03-12-2022 Chart Update Charan Casey Work Phone: [facility] DO Work Phone: Start: 03-07-2022 End: 03-07-2022 ambulatory Renée Fitt Other [facility] Other Start: 03-07-2022 Telephone encounter Renée Watts [facility] Start: 03-04-2022 End: 03-04-2022 ambulatory Charan Casey Other [facility] Other Start: 03-04-2022 Telephone encounter Charan Casey [facility] Start: 02-20-2022 End: 02-20-2022 ambulatory Elpidio Sole Other [facility] Other Start: 02-20-2022 Office outpatient vi sit 25 minutes Elpidio Sole [facility] Start: 02-10-2022 End: 02-10-2022 ambulatory Charan Casey Other [facility] Other Start: 02-10-2022 Telephone encounter Charan Casey [facility] [place] Start: 02-07-2022 End: 02-07-2022 ambulatory Charan Casey Other [facility] Other Start: 02-07-2022 Office outpatient vi sit 25 minutes Charan Casey [facility] [place] Start: 02-05-2022 End: 02-05-2022 ambulatory Charan Casey Other [facility] Other Start: 02-05-2022 Telephone encounter Charan Casey [facility] [place] Start: 01-21-2022 End: 01-21-2022 ambulatory Charan Casey Other [facility] Other Start: 01-21-2022 Telephone encounter Charan Casey [facility] [place] Start: 12-31-2021 End: 12-31-2021 ambulatory Thierno Chatterjee Other [facility] Other Start: 12-31-2021 Office outpatient vi sit 15 minutes Thierno Chatterjee [facility] Start: 12-07-2021 End: 12-07-2021 ambulatory Charan Casey Other [facility] Other Start: 12-07-2021 Telephone encounter Charan Casey [facility] [place] Start: 12-06-2021 End: 12-06-2021 ambulatory Charan Casey Other [facility] Other Start: 12-06-2021 Telephone encounter Charan Casey [facility] Start: 12-03-2021 End: 12-03-2021 ambulatory Charan Casey Other [facility] Other Start: 12-03-2021 Office outpatient vi sit 15 minutes Charan Casey [facility] [place] Start: 10-01-2021 End: 10-01-2021 ambulatory Blas Ortiz Other [facility] Other Start: 10-01-2021 Office outpatient vi sit 25 minutes Blas Ortiz [facility] [place] [place] End: 02-20-2022 Patient encounter status Charan Casey Work Phone: [facility] [address] DO Work Phone: Procedures Date Procedure Procedure Detail Performing Clinician Start: 05-31-2024 Injection of local a nesthetic into sacroiliac joint DO Charan Casey Work Phone: Start: 03-05-2024 MRI of lumbar spine with contrast DO Charan Casey Work Phone: Start: 02-29-2024 Urine culture DO Charan Casey Work Phone: Start: 12-30-2023 Plain chest X-ray DO Br justyn Brysons Work Phone: Start: 12-04-2023 History of placement of stent for coronary artery disease 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 Rosalinda Torres MD Work Phone: Start: 10-06-2023 Screening colonoscopy D O Charan Casey Work Phone: Start: 09-08-2023 Injection of local a nesthetic into sacroiliac joint DO Charan Casey Work Phone: Start: 08-17-2023 Plain X-ray of right hip DO Charan Casey Work Phone: Start: 08-11-2023 X-ray of lumbar spin e, six views including bending views DO Charan Casey Work Phone: Start: 05-19-2023 Plain chest X-ray DO Danial Masseys Work Phone: Start: 05-19-2023 Radiography of thoracic spine DO Charan Casey Work Phone: Start: 05-19-2023 X-ray of lumbar spin e, four or more views DO Charan Casey Work Phone: Start: 03-06-2023 Urine culture DO Charan Casey Work Phone: Start: 10-15-2022 MRI of right ankle DO B monica Brysons Work Phone: Start: 10-15-2022 MRI of right foot DO Br justyn Kuns Work Phone: Start: 11-14-2022 MRI of left ankle DO Br justyn Kuns Work Phone: Start: 10-13-2022 MRI of left foot DO Yeison Casey Work Phone: Start: 10-13-2022 CT of bilateral feet DO Charan Casey Work Phone: Start: 10-13-2022 Pulse volume recorde r pneumoplethysmography DO Charan Casey Work Phone: Start: 07-27-2022 X-ray of left foot DO Milan Casey Work Phone: Arthroplasty of knee Charan Casey Work Phone: Cardiac catheterization Yeisonsara Louise Jacinto Work Phone: section Charan clemente Work Phone: Cholecystectomy Charan Casey Work Phone: History of placement of stent for coronary artery disease 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 Charan Casey Work Phone: Comment on above: February 2022; History of placement of stent for coronary artery disease 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 Rosalinda Torres MD Work Phone: Operative procedure on ankle Charan Casey Work Phone: Operative procedure on foot Charan Casey Work Phone: Parathyroidectomy Charan Buck ns Work Phone: Procedure on back Charan P Heber ns Work Phone: Procedure on neck Charan Buck ns Work Phone: Total colonoscopy Charan P Heber ns Work Phone: Comment on above: 30Nov2018; Plan of Treatment Date Care Activity Detail Author Start: 2025 Pneumococcal Vaccine: Pediatrics (0 to 5 Years) and At-Risk Patients (6 to 64 Years) (3 - PPSV23 or PCV20) Pneumococcal Vaccine: Pediatrics (0 to 5 Years) and At-Risk Patients (6 to 64 Years) (3 - PPSV23 or PCV20) [facility] Start: 08-25-2024 End: 08-25-2024 Patient encounter procedure 08/25/2024 8:40 AM EDT Office Visit [facility] [address] [place] [id number] Rosalinda Torres MD [address] [place] [address] [facility] Start: 05-31-2024 [facility] Start: 02-29-2024 Bacteria identified in Urine by Culture [facility] Start: 02-29-2024 Urine culture Urine Culture [facility] Start: 11-10-2023 [facility], Provider: Rosalinda Torres, Status: Pen, Time: 9:10 AM [facility], Provider: Rosalinda Torres, Status: Pen, Time: 9:10 AM [facility] Work Phone: Start: 10-06-2023 [facility] Start: 09-08-2023 [facility] Start: 07-31-2023 COVID-19 Vaccine ( season) COVID-19 Vaccine ( season) [facility] Start: 07-31-2023 Influenza vaccination Influenza Vaccine (#1) [facility] Start: 03-06-2023 Bacteria identified in Urine by Culture [facility] Start: 11-12-2022 [facility], Provider: Rosalinda Torres, Status: Pen, Time: 9:00 AM [facility], Provider: Rosalinda Torres, Status: Pen, Time: 9:00 AM [facility] Work Phone: Start: 03-27-2022 [facility], Provider: Rosalinda Torres, Status: Pen, Time: 1:00 PM [facility], Provider: Rosalinda Torres, Status: Pen, Time: 1:00 PM [facility] Work Phone: Start: 03-14-2022 [facility], Provider: Rosalinda Torres, Status: Pen, Time: 1:50 PM [facility], Provider: Rosalinda Torres, Status: Pen, Time: 1:50 PM [facility] DO Work Phone: Start: 2000 Screening for malignant neoplasm of breast Mammogram [facility] Start: 1982 DTaP/Tdap/Td Vaccines (1 - Tdap) DTaP/Tdap/Td Vaccines (1 - Tdap) [facility] Start: 1981 Screening for malignant neoplasm of cervix [facility] Start: 1979 Urine screening for protein Diabetes: Urine Protein Screening [facility] Start: 1978 Hepatitis C screening Hepatitis C Screening [facility] Start: 1970 Diabetic foot examination Diabetes: Foot Exam [facility] Start: 1970 Glaucoma screening Diabetes: Retinopathy Screening [facility] Start: 1961 MMR Vaccines (1 of 1 - Standard series) MMR Vaccines (1 of 1 - Standard series) [facility] Start: 1960 Hemoglobin A1c measurement Diabetes: Hemoglobin A1C [facility] Start: 1960 HIV screening HIV Screening [facility] Start: 1960 Lipid panel Lipid Panel [facility] Start: 1960 Screening for malignant neoplasm of colon [facility] Start: 1960 Yearly Adult Physical Yearly Adult Physical [facility] MR Lumbar spine WO a nd W contrast IV [facility] Patient Education [facility] Work Phone: Patient referral [facility] Work Phone: Renal function 2000 panel - Serum or Plasma [facility] Immunizations Immunization Date Immunization Notes Care Provider Christian alfonso 01-27-2023 zoster vaccine recombinant Renée Watts Other [facility] 10-28-2022 zoster vaccine recombinant Eliud Rod Other [facility] 10-16-2022 influenza virus vaccine, unspecified formulation DO Charan Jacinto Work Phone: [facility] 10-16-2022 influenza, seasonal, injectable Rosalinda Torres MD Work Phone: [facility] Work Phone: 10-16-2022 Moderna SARS-CoV-2 Vaccination Rosalinda Torres MD Work Phone: [facility] Work Phone: 10-16-2022 COVID-19 Moderna (BIvalent) Renée Fitt Other [facility] 10-16-2022 influenza, high dose seasonal, preservative-free Reneé Fitt Other [facility] Other 10-16-2022 influenza, injectabl e, quadrivalent, preservative free Renée Fitt Other [facility] Other 09-26-2021 Moderna COVID-19 Vaccine 100 MCG/0.5ML Intramuscular Suspension Charan Casey Work Phone: [facility] 08-30-2021 seasonal influenza, intradermal, preservative free Charan Casey Work Phone: [facility] 250 DO Work Phone: 12-25-2020 COVID-19 Vaccine Moderna - Documentation Purposes Only Blas Ortiz Other [facility] 11-28-2020 Moderna COVID-19 Vaccine 100 MCG/0.5ML Intramuscular Suspension Charan Casey Work Phone: [facility] 08-30-2019 influenza virus vaccine, unspecified formulation Charan Casey Work Phone: [facility] 250 DO Work Phone: 08-30-2019 influenza, seasonal, injectable Blas Ortiz Other [facility] 08-30-2018 influenza, seasonal, injectable Blas Ortiz Other [facility] 12-02-2016 influenza virus vaccine, unspecified formulation DO Charan Casey Work Phone: [facility] 12-02-2016 influenza, seasonal, injectable, preservative free Charan Casey Work Phone: [facility] DO Work Phone: 12-02-2016 pneumococcal conjuga te vaccine, 13 valent Blas Ortiz Other [facility] 12-02-2016 influenza, high dose seasonal, preservative-free Blas Ortiz Other [facility] Other 12-02-2016 influenza, injectabl e, quadrivalent, preservative free Renée Saeedt Other [facility] Other 11-30-2016 pneumococcal polysaccharide vaccine, 23 valent Charan Casey Work Phone: [facility] DO Work Phone: 10-15-2016 pneumococcal polysaccharide vaccine, 23 valent Charan Casey Work Phone: [facility] 09-08-2012 influenza virus vaccine, unspecified formulation DO Charan Casey Work Phone: [facility] 09-08-2012 tetanus toxoid, reduced diphtheria toxoid, and acellular pertussis vaccine, adsorbed lBas Ortiz Other [facility] 09-08-2012 influenza virus vaccine, split virus (incl. purified surface antigen) Blas Ortiz Other [facility] Other influenza virus vaccine, unspecified formulation Charan Casey Work Phone: [facility] DO Work Phone: Comment on above: 2009 NEGATED: Highlighted row has not occurred!09-07-2017 influenza, injectable,quadrivalen t, preservative free, pediatric Blas Ortiz Other [facility] Other Payers Date Payer Category Payer Self-pay [id number] 2022 Unknown 1960 Unknown [id number] 2.16.84 0.1.015675.3.579.2.593 1960 Unknown [id number] 2.16.84 0.1.915950.3.579.2.593 1960 Unknown [id number] 2.16.84 0.1.219225.3.579.2.593 1960 Unknown [id number] 2.16.84 0.1.854362.3.579.2.593 1960 Unknown [id number] 2.16.84 0.1.856163.3.579.2.593 1960 Unknown [id number] 2.16.84 0.1.058475.3.579.2.593 1960 Unknown [id number] 2.16.84 0.1.801035.3.579.2.593 1960 Unknown [id number] 2.16.84 0.1.348611.3.579.2.593 1960 Unknown [id number] 2.16.84 0.1.501645.3.579.2.593 1960 Unknown [id number] 2.16.84 0.1.287492.3.579.2.593 1960 Unknown [id number] 2.16.84 0.1.685242.3.579.2.593 1960 Unknown [id number] 2.16.84 0.1.772152.3.579.2.593 1960 Unknown [id number] 2.16. 840.1.066185.3.579.2.356 1960 Unknown [id number] 2.16. 840.1.383629.3.579.2.356 1960 Unknown [id number] 2.16.84 0.1.423149.3.579.2.1259 1960 Unknown [id number] 2.16.840. 1.542423.3.579.2.1259 1960 Unknown [id number] 2.16.8 40.1.603656.3.579.2.1244 1959 Unknown [id number] 2. 16.840.1.984856.19 Unknown [id number] 2.16.8 40.1.248425.3.579.2.531 Unknown [id number] 2.16.8 40.1.584934.3.579.2.531 Unknown [id number] 2.16.8 40.1.200650.3.579.2.531 Unknown [id number] 2.16.8 40.1.733055.3.579.2.531 Unknown [id number] 2.16.8 40.1.380295.3.579.2.531 Unknown [id number] 2.16.8 40.1.192386.3.579.2.531 Unknown [id number] 2.16.8 40.1.547371.3.579.2.531 Unknown [id number] 2.16.8 40.1.029510.3.579.2.531 Unknown [id number] 2.16.8 40.1.065467.3.579.2.531 Social History Date Type Detail Facility Start: 12-04-2023 Occasional caffeine consumption Occasional caffeine consumption -[facility] DO Work Phone: Comment on above: Coffee; Start: 12-04-2023 Sex Assigned At [facility] Other Start: 07-27-2022 End: 03-01-2024 Tobacco smoking status NHIS Never smoked tobacco (finding) [facility] Start: 1960 Sex Assigned At Female F [facility] Start: 12-04-2023 Tobacco use and exposure Smokeless tobacco non-user [facility] Work Phone: Start: 12-04-2023 Alcohol intake Lifetime non-d palmira (finding) [facility] Work Phone: Start: 1960 Sex Assigned At Not on file [facility] Work Phone: Start: 02-12-2024 End: 02-22-2024 Exposure to SARS-CoV-2 (event) Not sure [facility] Medical Equipment Procedure Code Equipment Code Equipment Origin al Text Equipment Identifier Dates Fusion, spine, lumbar, XLIF LATERAL STD 1 LEVEL CONSTRUCT FDA Start: 07-25-2020 Fusion, spine, lumbar, XLIF Orthopaedic bone screw, non-bioabsorbable, non-sterile [id number] FDA Start: 07-25-2020 Fusion, spine, lumbar, XLIF Bone-screw internal spinal fixation system, non-sterile [id number] FDA Start: 07-25-2020 Fusion, spine, lumbar, XLIF STRATOFUSE DBM 10CC FDA Start: 07-25-2020 Fusion, spine, lumbar, XLIF TIMBERLINE INTERBODY FDA Start: 07-25-2020 Fusion, spine, lumbar, XLIF Spinal fusion graft kit [id number] FDA Start: 07-25-2020 Fusion, spine, lumbar, XLIF Bone-screw internal spinal fixation system, non-sterile [id number] FDA Start: 07-25-2020 Fusion, spine, lumbar, XLIF LATERAL STD 1 LEVEL CONSTRUCT FDA Start: 07-25-2020 Fusion, spine, lumbar, XLIF STRATOFUSE DBM 10CC FDA Start: 07-25-2020 Fusion, spine, lumbar, XLIF TIMBERLINE INTERBODY FDA Start: 07-25-2020 Fusion, spine, lumbar, XLIF LATERAL STD 1 LEVEL CONSTRUCT FDA Start: 07-25-2020 Fusion, spine, lumbar, XLIF STRATOFUSE DBM 10CC FDA Start: 07-25-2020 Fusion, spine, lumbar, XLIF TIMBERLINE INTERBODY FDA Start: 07-25-2020 Fusion, spine, lumbar, XLIF LATERAL STD 1 LEVEL CONSTRUCT FDA Start: 07-25-2020 Fusion, spine, lumbar, XLIF STRATOFUSE DBM 10CC FDA Start: 07-25-2020 Fusion, spine, lumbar, XLIF TIMBERLINE INTERBODY FDA Start: 07-25-2020 Fusion, spine, lumbar, XLIF LATERAL STD 1 LEVEL CONSTRUCT FDA Start: 07-25-2020 Fusion, spine, lumbar, XLIF STRATOFUSE DBM 10CC FDA Start: 07-25-2020 Fusion, spine, lumbar, XLIF TIMBERLINE INTERBODY FDA Start: 07-25-2020 Fusion, spine, lumbar, XLIF LATERAL STD 1 LEVEL CONSTRUCT FDA Start: 07-25-2020 Fusion, spine, lumbar, XLIF STRATOFUSE DBM 10CC FDA Start: 07-25-2020 Fusion, spine, lumbar, XLIF TIMBERLINE INTERBODY FDA Start: 07-25-2020 Fusion, spine, lumbar, XLIF LATERAL STD 1 LEVEL CONSTRUCT FDA Start: 07-25-2020 Fusion, spine, lumbar, XLIF STRATOFUSE DBM 10CC FDA Start: 07-25-2020 Fusion, spine, lumbar, XLIF TIMBERLINE INTERBODY FDA Start: 07-25-2020 Fusion, spine, lumbar, XLIF LATERAL STD 1 LEVEL CONSTRUCT FDA Start: 07-25-2020 Fusion, spine, lumbar, XLIF STRATOFUSE DBM 10CC FDA Start: 07-25-2020 Fusion, spine, lumbar, XLIF TIMBERLINE INTERBODY FDA Start: 07-25-2020 Fusion, spine, lumbar, XLIF LATERAL STD 1 LEVEL CONSTRUCT FDA Start: 07-25-2020 Fusion, spine, lumbar, XLIF STRATOFUSE DBM 10CC FDA Start: 07-25-2020 Fusion, spine, lumbar, XLIF TIMBERLINE INTERBODY FDA Start: 07-25-2020 Fusion, spine, lumbar, XLIF LATERAL STD 1 LEVEL CONSTRUCT FDA Start: 07-25-2020 Fusion, spine, lumbar, XLIF STRATOFUSE DBM 10CC FDA Start: 07-25-2020 Fusion, spine, lumbar, XLIF TIMBERLINE INTERBODY FDA Start: 07-25-2020 Fusion, spine, lumbar, XLIF LATERAL STD 1 LEVEL CONSTRUCT FDA Start: 07-25-2020 Fusion, spine, lumbar, XLIF STRATOFUSE DBM 10CC FDA Start: 07-25-2020 Fusion, spine, lumbar, XLIF TIMBERLINE INTERBODY FDA Start: 07-25-2020 Fusion, spine, lumbar, XLIF LATERAL STD 1 LEVEL CONSTRUCT FDA Start: 07-25-2020 Fusion, spine, lumbar, XLIF STRATOFUSE DBM 10CC FDA Start: 07-25-2020 Fusion, spine, lumbar, XLIF TIMBERLINE INTERBODY FDA Start: 07-25-2020 Fusion, spine, lumbar, XLIF LATERAL STD 1 LEVEL CONSTRUCT FDA Start: 07-25-2020 Fusion, spine, lumbar, XLIF STRATOFUSE DBM 10CC FDA Start: 07-25-2020 Fusion, spine, lumbar, XLIF TIMBERLINE INTERBODY FDA Start: 07-25-2020 Fusion, spine, lumbar, XLIF LATERAL STD 1 LEVEL CONSTRUCT FDA Start: 07-25-2020 Fusion, spine, lumbar, XLIF STRATOFUSE DBM 10CC FDA Start: 07-25-2020 Fusion, spine, lumbar, XLIF TIMBERLINE INTERBODY FDA Start: 07-25-2020 Fusion, spine, lumbar, XLIF LATERAL STD 1 LEVEL CONSTRUCT FDA Start: 07-25-2020 Fusion, spine, lumbar, XLIF STRATOFUSE DBM 10CC FDA Start: 07-25-2020 Fusion, spine, lumbar, XLIF TIMBERLINE INTERBODY FDA Start: 07-25-2020 Fusion, spine, lumbar, XLIF LATERAL STD 1 LEVEL CONSTRUCT FDA Start: 07-25-2020 Fusion, spine, lumbar, XLIF STRATOFUSE DBM 10CC FDA Start: 07-25-2020 Fusion, spine, lumbar, XLIF TIMBERLINE INTERBODY FDA Start: 07-25-2020 Fusion, spine, lumbar, XLIF LATERAL STD 1 LEVEL CONSTRUCT FDA Start: 07-25-2020 Fusion, spine, lumbar, XLIF STRATOFUSE DBM 10CC FDA Start: 07-25-2020 Fusion, spine, lumbar, XLIF TIMBERLINE INTERBODY FDA Start: 07-25-2020 Fusion, spine, lumbar, XLIF LATERAL STD 1 LEVEL CONSTRUCT FDA Start: 07-25-2020 Fusion, spine, lumbar, XLIF STRATOFUSE DBM 10CC FDA Start: 07-25-2020 Fusion, spine, lumbar, XLIF TIMBERLINE INTERBODY FDA Start: 07-25-2020 Fusion, spine, lumbar, XLIF LATERAL STD 1 LEVEL CONSTRUCT FDA Start: 07-25-2020 Fusion, spine, lumbar, XLIF STRATOFUSE DBM 10CC FDA Start: 07-25-2020 Fusion, spine, lumbar, XLIF TIMBERLINE INTERBODY FDA Start: 07-25-2020 Fusion, spine, lumbar, XLIF LATERAL STD 1 LEVEL CONSTRUCT FDA Start: 07-25-2020 Fusion, spine, lumbar, XLIF STRATOFUSE DBM 10CC FDA Start: 07-25-2020 Fusion, spine, lumbar, XLIF TIMBERLINE INTERBODY FDA Start: 07-25-2020 Fusion, spine, lumbar, XLIF LATERAL STD 1 LEVEL CONSTRUCT FDA Start: 07-25-2020 Fusion, spine, lumbar, XLIF STRATOFUSE DBM 10CC FDA Start: 07-25-2020 Fusion, spine, lumbar, XLIF TIMBERLINE INTERBODY FDA Start: 07-25-2020 Fusion, spine, lumbar, XLIF LATERAL STD 1 LEVEL CONSTRUCT FDA Start: 07-25-2020 Fusion, spine, lumbar, XLIF STRATOFUSE DBM 10CC FDA Start: 07-25-2020 Fusion, spine, lumbar, XLIF TIMBERLINE INTERBODY FDA Start: 07-25-2020 Fusion, spine, lumbar, XLIF LATERAL STD 1 LEVEL CONSTRUCT FDA Start: 07-25-2020 Fusion, spine, lumbar, XLIF STRATOFUSE DBM 10CC FDA Start: 07-25-2020 Fusion, spine, lumbar, XLIF TIMBERLINE INTERBODY FDA Start: 07-25-2020 Fusion, spine, lumbar, XLIF LATERAL STD 1 LEVEL CONSTRUCT FDA Start: 07-25-2020 Fusion, spine, lumbar, XLIF STRATOFUSE DBM 10CC FDA Start: 07-25-2020 Fusion, spine, lumbar, XLIF TIMBERLINE INTERBODY FDA Start: 07-25-2020 Fusion, spine, lumbar, XLIF LATERAL STD 1 LEVEL CONSTRUCT FDA Start: 07-25-2020 Fusion, spine, lumbar, XLIF STRATOFUSE DBM 10CC FDA Start: 07-25-2020 Fusion, spine, lumbar, XLIF TIMBERLINE INTERBODY FDA Start: 07-25-2020 Fusion, spine, lumbar, XLIF LATERAL STD 1 LEVEL CONSTRUCT FDA Start: 07-25-2020 Fusion, spine, lumbar, XLIF STRATOFUSE DBM 10CC FDA Start: 07-25-2020 Fusion, spine, lumbar, XLIF TIMBERLINE INTERBODY FDA Start: 07-25-2020 Start: 08-11-2013 Drug-eluting coronary artery stent, bps-hnexuwrohoauu-kt lymer-coated ()[id number] FDA Start: 03-27-2022 Femoral artery closure plug/patch, synthetic polymer ()[id number] FDA Start: 03-27-2022 Pen Needle, Diab etic (Ulticare Pen Needle) 31 gauge x 3/16 needle Start: 05-13-2024 Pen Needle, Diab etic (Ulticare Pen Needle) 31 gauge x 3/16 needle Start: 05-13-2024 End: 05-13-2024 Pen Needle, Diab etic (Ulticare Pen Needle) 31 gauge x 3/16 needle Start: 05-13-2024 Pen Needle, Diab etic (Ulticare Pen Needle) 31 gauge x 3/16 needle Start: 05-13-2024 End: 05-13-2024 Pen Needle, Diab etic (Ulticare Pen Needle) 31 gauge x 3/16 needle Start: 05-13-2024 Pen Needle, Diab etic (Ulticare Pen Needle) 31 gauge x 3/16 needle Start: 05-13-2024 End: 05-13-2024 Pen Needle, Diab etic (Ulticare Pen Needle) 31 gauge x 3/16 needle Start: 05-13-2024 Pen Needle, Diab etic (Ulticare Pen Needle) 31 gauge x 3/16 needle Start: 05-13-2024 End: 05-13-2024 Goals Date Patient Goal Desired Activity /State Clinical Notes 12-31-2014 to 05-31-2024 Rosalinda Torres MD - 02/22/2024 2:20 PM EDTPatient Instructions Note Date & Type Note Facility 05-31-2024 Procedure note [facility] 02-22-2024 History of Presen t illness Narrative Subjective Rita Cobb is a 63 y.o. female Chief Complaint Follow-up HPI Patient is in the office for follow-up for the problems noted below. She has had no cardiac events since her last visit. She reports no angina orthopnea PND or lower extremity edema. She has orthopedic problems resulting from her Pyedmvm-Snhzj-Apbad disease. Her labs have been followed closely. Her examination is only remarkable for class II obesity. Assessment/recommendation: 1-CAD status post PCI of the LAD February 2022 for total occlusion with resolution of symptoms. Aggressive risk factor modification again was emphasized. 2-diabetes managed by PCP 3-hypertension medical therapy under control 4-hyperlipidemia, currently on rosuvastatin 3 days weekly due to intolerance. 5-class II obesity, encouraged the patient to control caloric consumption and remain physically active 6-sleep apnea on CPAP machine patient has been compliant with it. 4-Oipdxdo-Muwju-Tooth joint in the ankles status post recent surgery on the left foot with plan to repair the right foot down the road Review of Systems All other systems reviewed and are negative. Vitals: 02/22/24 1426 BP: 130/60 BP Location: Left arm Patient Position: Sitting Pulse: 84 Weight: 108 kg (237 lb) Height: 1.702 m (5' 7 ) Objective Physical Exam Constitutional: Appearance: Normal appearance. HENT: Nose: Nose normal. Neck: Vascular: No carotid bruit. Cardiovascular: Rate and Rhythm: Normal rate. Pulses: Normal pulses. Heart sounds: Normal heart sounds. Pulmonary: Effort: Pulmonary effort is normal. Abdominal: General: Bowel sounds are normal. Palpations: Abdomen is soft. Musculoskeletal: General: Normal range of motion. Cervical back: Normal range of motion. Right lower leg: No edema. Left lower leg: No edema. Skin: General: Skin is warm and dry. Neurological: General: No focal deficit present. Mental Status: She is alert. Psychiatric: Mood and Affect: Mood normal. Behavior: Behavior normal. Thought Content: Thought content normal. Judgment: Judgment normal. Allergies Levofloxacin and Erythromycin base Current Medications Current Outpatient Medications: allopurinol (Zyloprim) 100 mg tablet, Take 1 tablet (100 mg) by mouth once daily., Disp: , Rfl: ascorbic acid (Vitamin C) 1,000 mg tablet, Take 1 tablet (1,000 mg) by mouth once daily., Disp: , Rfl: aspirin 81 mg EC tablet, Take 1 tablet (81 mg) by mouth once daily., Disp: , Rfl: b complex vitamins (Vitamins B Complex) capsule, Take 1 capsule by mouth once daily., Disp: , Rfl: COQ10, UBIQUINOL, ORAL, Take by mouth., Disp: , Rfl: ergocalciferol (Vitamin D-2) 1.25 MG (43965 UT) capsule, Take 1 capsule (50,000 Units) by mouth once daily., Disp: , Rfl: insulin lispro (HumaLOG) 100 unit/mL injection, Inject under the skin. Take as directed per insulin instructions., Disp: , Rfl: insulin regular (HumuLIN R U-500, Conc, Insulin) 500 unit/mL CONCENTRATED injection, Inject under the skin., Disp: , Rfl: metoprolol succinate XL (Toprol-XL) 200 mg 24 hr tablet, Take 1 tablet (200 mg) by mouth once daily., Disp: , Rfl: nitroglycerin (Nitrostat) 0.4 mg SL tablet, DISSOLVE 1 TABLET UNDER THE TONGUE EVERY 5 MINUTES NEEDED FOR CHEST PAIN. DO NOT EXCEED A TOTAL OF 3 DOSES IN 15 MINUTES. GO TO THE ER IF PERSISITS., Disp: 90 tablet, Rfl: 1 olmesartan (Benicar) 40 mg tablet, Take 1 tablet (40 mg) by mouth once daily., Disp: , Rfl: omega-3 acid ethyl esters (Lovaza) 1 gram capsule, Take 1 capsule (1 g) by mouth twice a day., Disp: , Rfl: pregabalin (Lyrica) 150 mg capsule, Take 1 capsule (150 mg) by mouth once daily in the morning. Take before meals., Disp: , Rfl: pregabalin (Lyrica) 300 mg capsule, Take 1 capsule (300 mg) by mouth once daily at bedtime., Disp: , Rfl: rosuvastatin (Crestor) 10 mg tablet, Take 1 tablet (10 mg) by mouth 3 (three) times a week., Disp: 36 tablet, Rfl: 3 traMADol ER, biphasic, (Ryzolt) 100 mg 24 hr tablet, Take 1 tablet (100 mg) by mouth once daily. Do not crush, chew, or split., Disp: , Rfl: Assessment/Plan 1. Coronary artery disease, unspecified vessel or lesion type, unspecified whether angina present, unspecified whether alturas or transplanted heart Follow Up In Cardiology 2. Essential hypertension 3. 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 4. Hyperlipidemia, unspecified hyperlipidemia type 5. Obstructive sleep apnea syndrome 6. Class 2 obesity with body mass index (BMI) of 37.0 to 37.9 in adult, unspecified obesity type, unspecified whether serious comorbidity present 7. Insulin-requiring or dependent type II diabetes mellitus ([facility]) Scribe Attestation By signing my name below, IEnedina LPN , Scribe attest that this documentation has been prepared under the direction and in the presence of Rosalinda Torres MD. Provider Attestation - Scribe documentation All medical record entries made by the Scribe were at my direction and personally dictated by me. I have reviewed the chart and agree that the record accurately reflects my personal performance of the history, physical exam, discussion and plan. documented in this encounter [facility] Work Phone: 02-22-2024 Instructions Enedina Isidro LPN - 02/22/2024 2:20 PM EDT Please bring all medicines, vitamins, and herbal supplements with you when you come to the office. Prescriptions will not be filled unless you are compliant with your follow up appointments or have a follow up appointment scheduled as per instruction of your physician. Refills should be requested at the time of your visit. BMI was above normal measurement. Current weight: 108 kg (237 lb) Weight change since last visit (-) denotes wt loss 1 lbs Weight loss needed to achieve BMI 25: 77.7 Lbs Weight loss needed to achieve BMI 30: 45.9 Lbs Provided instructions on dietary changes Provided instructions on exercise. Follow up 6 m Same medications documented in this encounter [facility] Work Phone: 12-30-2023 Evaluation note Encounter Date Diagnosis Assessment Notes Nov, Asthmatic bronchitis (ICD-10 - J45.909) Patient describes a thick sputum, green/yellow sputum. States that she has been having coughing spells that make her want to throw up, however she has not thrown up or passed out due to coughing. She denies any dizziness. Does have slight sinus involvement. She states that she took Augmentin last month that did help her, however would like to cover her if she would have a pneumonia. Therefore would recommend she take the above regimen and will also have her obtain a chest xray. Strongly encouraged her to increase her water intake and encouraged her to call if she does not improve. [facility] Other 12-05-2023 Evaluation note* Encounter Date Diagnosis Assessment Notes Treatment Notes Treatment Clinical Notes Oct, Hyperlipidemia (ICD-10 - E78.5) [facility] Other 11-29-2023 Evaluation note* Encounter Date Diagnosis Assessment Notes Treatment Notes Treatment Clinical Notes Sep, Trochanteric bursitis of left hip (ICD-10 - M70.62) [facility] Other 11-29-2023 Evaluation note* Encounter Date Diagnosis Assessment Notes Treatment Notes Treatment Clinical Notes Sep, Bilateral sacroiliitis (ICD-10 - M46.1) Patient is voicing minimal complaints of pain at this time. She attributes this to a recent bilateral sacroiliac joint and right trochanteric bursa injections. We will continue to monitor her symptoms in this region. Anatomy of spine discussed in detail with patient in regards to patients condition. Overall, patient believes their pain is reasonably well controlled and she agrees with our treatment plan. Sep, Trochanteric bursitis of left hip (ICD-10 - M70.62) Patients primary complaint today is persistent pain over the outide of the hip. He shows notable tenderness over the trochanteric bursa upon exam. Based on location of pain and exam findings, patient is a candidate for a repeat left trochanteric bursa injection which we will proceed with today in the office. Risks and benefits of procedure explained to patient; patient verbalizes understanding. Patient tolerated well. Sep, Other chronic pain (ICD-10 - G89.29) Sep, Other Above note writ ten by Willi Leiva MA, Remote Control Mirror Installer. Edited and approved by Dr. Blas Ortiz MD. [facility] Other 11-22-2023 Evaluation note* Encounter Date Diagnosis Assessment Notes Treatment Notes Treatment Clinical Notes Sep, Acute non-recurrent pansinusitis (ICD-10 - J01.40) Sinus infections can be triggeredby a secondary infection; usually a viral URI or even seasonal allergies. Take medications as directed. Use saline nasal spray prior to presciption nasal spray. Complete all doses of medication even if you start to feel better. Symptoms should improve during treatment period.Follow up with primary care provider if no improvement of symptoms occur by end of treatment. [facility] Other 11-20-2023 Evaluation note* Encounter Date Diagnosis Assessment Notes Treatment Notes Treatment Clinical Notes Sep, Cervical spondylosis without myelopathy (ICD-10 - M47.812) [facility] Other 11-08-2023 Evaluation note* Encounter Date Diagnosis Assessment Notes Treatment Notes Treatment Clinical Notes Sep, Hypertensive chronic kidney disease with stage 1 through stage 4 chronic kidney disease, or unspecified chronic kidney disease (ICD-10 - I12.9) [facility] Other 11-07-2023 History and physical note Author Yasmeen Treadwell [facility] October 06, 2023 8:31am Note Date/Time October 06, 2023 8 :31am [facility] [address] [place] [address] Gastroenterology H&P Signed Patient: Rita Cobb MR#: [id number] [birth year] : 1960 Acct:[id number] Age/Sex: 62 / F Adm Date: 3 Loc: Room: Type: [facility] Attending Dr: Yasmeen Treadwell MD Copies to: Charan Casey,DO Yasmeen Treadwell MD~ Date of Service: 10/06/2023 HISTORY & PHYSICAL: Patient's history with special attention to the cardiovascular, pulmonary systems and the current problem was reviewed with the patient immediately prior to the procedure. Present medications and doses reviewed in the EMR. Allergies and pertinent laboratory tests were also reviewedat this time in the EMR. The physical examination, as below, was then performed. Indication, assessment and HPI: 62-year-old female here for screening colonoscopy Family history of GI malignancy? No PHYSICAL EXAMINATION Mouth and Pharynx : Moist mucus membranes, normal dentition Cardiac: Regular rate, regular rhythm Pulmonary: Clear to auscultation bilaterally, no wheezing Neurological: Alert and oriented x3, no focal deficits noted Abdomen: Abdomen soft, non-tender REVIEW OF SYSTEMS Constitutional: Denies malaise, fevers Cardiovascular: Denies chest pain, palpitations Respiratory: Denies shortness of breath, wheezing Gastrointestinal: Per HPI Genitourinary: Denies dysuria, polyuria Musculoskeletal: Denies joint swelling, joint stiffness Neurological: Denies numbness, tingling Integumentary: Denies rashes, skin lesions Endocrine: Denies fatigue, weight loss Written informed consent obtained from the patient. Risks (including but not limited to perforation, infection, bloating, bleeding, need for emergent surgeryand loss of life), benefits and alternatives explained and questions answered. The patient verbalized understanding. Based on history patient is an appropriate candidate for the procedure. Yasmeen Treadwell M.D. Documented By: Yasmeen Treadwell MD 10/06/23829 Signed By: <Electronically signed by Yasmeen Treadwell MD> 10/06/23830 [facility] Work Phone: 1(545) 899-675011-07-2023 [facility]* Encounter Date Diagnosis Assessment Notes Treatment Notes Treatment Clinical Notes Aug, Bilateral sacroiliitis (ICD-10 - M46.1) Patient is voicing minimal complaints of pain at this time. She attributes this to a recent bilateral sacroiliac joint and right trochanteric bursa injections. We will continue to monitor her symptoms in this region. Anatomy of spine discussed in detail with patient in regards to patients condition. Overall, patient believes their pain is reasonably well controlled and she agrees with our treatment plan. Aug, Trochanteric bursitis of left hip (ICD-10 - M70.62) We discussed treatment options for the patient's persistent left hip/gluteal pain. Patient shows notable tenderness on exam over the left trochanteric bursa. Given location of pain and exam findings, patient is a candidate for left trochanteric bursa injection, which we will proceed with today in the office. Risks and benefits of procedure explained to patient; patient verbalizes understanding. Patient tolerated this well. Aug, Other chronic pain (ICD-10 - G89.29) Aug, Other Above note writ ten by Corina Sánchez LPN, Remote Control Mirror Installer. Edited and approved by Dr. Blas Ortiz MD. [facility] Other 10-17-2023 Evaluation note* Encounter Date Diagnosis Assessment Notes Treatment Notes Treatment Clinical Notes Aug, Hypertensive chronic kidney disease with stage 1 through stage 4 chronic kidney disease, or unspecified chronic kidney disease (ICD-10 - I12.9) Blood pressure is usually controlled. She appears to be euvolemic. Continue to monitor Bp at home and call office if it is above 140 over 90 mmHg. Aug, Chronic kidney disea se, stage III (moderate) (ICD-10 - N18.30) She has CKD due to diabetic nephropathy and hypertensive nephrosclerosis. Her serum creatinine is 1.2 mg/dL. She has no evidence of hematuria and proteinuria. Her renal US showed left nephrolithiasis. I have discussed with the importance of the good blood pressure and DM control to slow down the progression of disease. Aug, Type 2 diabetes wicho itus with diabetic chronic kidney disease (ICD-10 - E11.22) Her sugars are within acceptable range. I have advised her to continue to follow with [place] for DM management. Continue olmesartan for renal protection. She reported that she did not tolerate Jardiance in the past. We will hold to add finerenone now due to risk of hypotension and hyperkalemia. Aug, Vitamin D deficiency (ICD-10 - E55.9) Her vitamin D is withint the goal and her calcium is normal. Continue oral vitamin D once a week Aug, Hyperuricemia (ICD-1 0 - E79.0) Her uric acid is within the goal and she denies any recent gout flare. Continue oral allopurinol. Aug, Hyperparathyroidism (ICD-10 - E21.3) MBD parameters including calcium, phosphorus, PTH and vitamin D are within the goal. Continue oral vitamin D. Aug, Hypomagnesemia (ICD- 10 - E83.42) Continue with oral magnesium. Aug, Hyperlipidemia (ICD- 10 - E78.5) Continue statins. Monitor LFTs and lipid profile with PCP. I would recommend to avoid the high dose of the Crestor and CKD patient due to the risk of worsening renal function and hematuria. [facility] Other 09-19-2023 Evaluation note* Encounter Date Diagnosis Assessment Notes Treatment Notes Treatment Clinical Notes Jul, Hyperuricemia (ICD-1 0 - E79.0) Jul, Diabetic neuropathy (ICD-10 - E11.40) [facility] Other 09-18-2023 Evaluation note* Encounter Date Diagnosis Assessment Notes Treatment Notes Treatment Clinical Notes Jul, Bilateral sacroiliitis (ICD-10 - M46.1) We discussed treatment options for the patient's persistent low bilateral lumbar/gluteal pain. She shows notable pain consistent with the sacroiliac joint and right trochanteric bursa. She has failed multiple previous conservative treatment options. I agree with neurosurgery, patient is a candidate for bilateral sacroiliac joint and right trochanteric bursa injection, which we will proceed with. Risks and benefits of procedure explained to patient; patient verbalizes understanding. Anatomy of spine discussed in detail with patient in regard to patients condition. Jul, Trochanteric bursitis of right hip (ICD-10 - M70.61) Jul, Other chronic pain (ICD-10 - G89.29) Jul, Other Above note writ ten by Corina Sánchze LPN, Remote Control Mirror Installer. Edited and approved by Dr. Blas Ortiz MD. [facility] Other 09-12-2023 Evaluation note* Encounter Date Diagnosis Assessment Notes Treatment Notes Treatment Clinical Notes Jul, History of fusion of cervical spine (ICD-10 - Z98.1) Jul, History of lumbar fusion (ICD-10 - Z98.1) The patient is having diffuse low back pain but her entire lumbar spine is fused up towards L2. Most of her pain is sacroiliac in nature and I think this needs to be injected as well as her right trochanteric region. Most of this is due to sagittal imbalance because of unsteady gait because of a bad left ankle. I see no evidence for surgical intervention at this point. I also do not think that there would be a high yield in doing an MRI at this point. Jul, Other chronic pain (ICD-10 - G89.29) Jul, Low back pain, unspecified (ICD-10 - M54.50) [facility] Other 09-06-2023 Evaluation note* Encounter Date Diagnosis Assessment Notes Treatment Notes Treatment Clinical Notes Jul, Cervical spondylosis without myelopathy (ICD-10 - M47.812) Patient has known cervical spondylosis and does use the flexeril but this does cause significant post fatigue. Patient states that she was recently approved for disability due to all of her other medical comorbidities Jul, Type 2 diabetes mellitus with diabetic neuropathy, unspecified (ICD-10 - E11.40) Patient is following with Dr. Shaina Munroe for her diabetes management. Per chart review last A1C back in February 2023 was 7.0 She is asking if I would refill her DM monitoring supplies for her today which I am happy to do so, but I do recommend she continue following with Dr. Munroe and her plan of care. Patient states she had to cancel her last appointment due to illness but has yet to reschedule. Jul, Spondylolisthesis , lumbar region (ICD-10 - M43.16) Patient has seen Dr. Chatterjee in the past for her spondylolisthesis of the lumbar spine and does have hx of surgical intervention with hardware placement.. Patient recently had imaging done and I have reviewed that with her today. Hardware is intact. Patient reports exacerbation of her back pain. I strongly feel that patient needs to get back into see Dr. Chatterjee for follow up and see if any further treatment is warranted. She will schedule I have provided patient with an order for therapy to assist with her setting up the TENS unit for her pain management. Jul, Rib pain on right side (ICD-10 - R07.81) I have reviewed the xray of the ribs with patient today Jul, Charcot's joint of left foot (ICD-10 - M14.672) Patient is following with Dr. Castro for her left foot/joint pain. She is scheduled to see him again today. She has significant neuropathy of the feet with unsteady gait. I have encouraged patient to follow up with Dr. Castro as scheduled Jul, Screening for colon cancer (ICD-10 - Z12.11) [facility] Other 08-03-2023 Evaluation note* Encounter Date Diagnosis Assessment Notes Treatment Notes Treatment Clinical Notes Jun, Type 2 diabetes mellitus with diabetic neuropathy, unspecified (ICD-10 - E11.40) [facility] Other 06-20-2023 Evaluation note* Encounter Date Diagnosis Assessment Notes Treatment Notes Treatment Clinical Notes Apr, Mid back pain (ICD-10 - M54.9) In house urine was negative. We will order XR to rule out any abnormalities. Patient is scheduled to see Dr. Ortiz this week. Apr, Rib pain on right side (ICD-10 - R07.81) I did note a bruise on the right side of the back that the patient was unaware of. Denies any injury. Patient voiced pain upon palpation of the right ribs. We will order XR to rule out abnormalities. Apr, Spondylolisthesis, lumbar region (ICD-10 - M43.16) Patient is to continue to follow with Dr. Ortiz as scheduled. Apr, Type 2 diabetes mellitus with diabetic neuropathy, unspecified (ICD-10 - E11.40) Patient is to continue to follow with [place] as scheduled. Apr, Cervical spondylosis without myelopathy (ICD-10 - M47.812) Refill provided of the above medication. [facility] 06-06-2023 Evaluation note* Encounter Date Diagnosis Assessment Notes Treatment Notes Treatment Clinical Notes Apr, Type 2 diabetes mellitus with diabetic neuropathy, unspecified (ICD-10 - E11.40) [facility] 05-15-2023 NotePROCEDURE: XR FOOT LT 2V HISTORY: Pain COMPARISON: XR foot left 04/07/2023 FINDINGS: BONES:Several intraoperative spot fluoroscopic images demonstrate removal of 3 separate lag screws fixating the second and fourth metatarsophalangeal joints. SOFT TISSUES:Expected intraoperative findings. OTHER: Negative. IMPRESSION: 1. Hardware revision involving left midfoot. Electronically authenticated by: BLANKA Ware: 2023-04-13 11:35[facility]05-15-2023 NotePROCEDURE: XR FOOT LT MIN 3 VIEWS HISTORY: Pain COMPARISON: XR foot left 04/07/2023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 Patel Medical History Skin ulcer of left f oot, limited to breakdown of skin Medical History Sepsis, unspecified organism Medical History H/O parathyroidectomy Medical History RIGHT FOOT FRACTURE Surgical History cervical fusion and low back fu baudilio 2010 Surgical History Procedure:;Disease:Preg ellen 1989 Surgical History previous cervical fusion 1997 Surgical History Procedure:;Disease:Pregnanc y 1991 Surgical History c/section 1989 Surgical History Procedure:;Disease:Pregnanc y 1993 Surgical History laposcropy 1988 Surgical History Procedure:tubal ligation Surgical History Procedure:Low back fusion Surgical History tubal ligation 1993 Surgical History 2 parathyroids removed 11/2012 Surgical History Procedure:cervical fusion Surgical History Bilateral eyelid surgery Surgical History Procedure:x2 thyroid glands rem humza 2012 Surgical History left knee arthoscopy 02/2016 Surgical History lithotripsy 03/2015 Surgical History left knee arthroscopy 02/2016 Surgical History partial left knee replacement Surgical History incision and drainag e necrotizing fasciiitis seroma/bullae left lateral ankle/midfoot 12/27/17 Surgical History partial left knee replacement 0 12/2016 Surgical History I&D, debridement necrotizing fa sciitis left ankle 12/27/2017 Surgical History Left ankle I & D Surgical History Gallbladder 01/2018 Surgical History Lap. cholecystectomy 02/17/2018 Surgical History colonoscopy 06/17/2019 Surgical History Colonoscopy 06/17/2019 Surgical History low back surgery 07/25/2020 Hospitalization History tachycardia 1999 Hospitalization History necrotizing fasciitis 2017 Hospitalization History see above [facility] Other 02-01-2015 History general Narrative - Reported* Type Description Date Medical History DM2 Medical History HTN Medical History Sleep apnea Medical History hypercalcemia due to PHT s/p nelda joselito in [facility] Medical History neuropathy Medical History 12/2014 colonscopy refused Medical History 12/31/2015 MRI left knee Medical History 04/15/19 colonoscopy refused; col oguard ordered Medical History 06/17/19 Colonoscopy -abnormal repeat in 4 years (pos cologuard) Medical History 05/2019 Pap w/ Dr. Patel Medical History Skin ulcer of left f oot, limited to breakdown of skin Medical History Sepsis, unspecified organism Medical History H/O parathyroidectomy Medical History RIGHT FOOT FRACTURE Surgical History cervical fusion and low back fu baudilio 2010 Surgical History Procedure:;Disease:Preg ellen 1989 Surgical History previous cervical fusion 1997 Surgical History Procedure:;Disease:Pregnanc y 1991 Surgical History c/section 1989 Surgical History Procedure:;Disease:Pregnanc y 1993 Surgical History laposcropy 1988 Surgical History Procedure:tubal ligation Surgical History Procedure:Low back fusion Surgical History tubal ligation 1993 Surgical History 2 parathyroids removed 11/2012 Surgical History Procedure:cervical fusion Surgical History Bilateral eyelid surgery Surgical History Procedure:x2 thyroid glands rem humza 2012 Surgical History left knee arthoscopy 02/2016 Surgical History lithotripsy 03/2015 Surgical History left knee arthroscopy 02/2016 Surgical History partial left knee replacement Surgical History incision and drainag e necrotizing fasciiitis seroma/bullae left lateral ankle/midfoot 12/27/17 Surgical History partial left knee replacement 0 12/2016 Surgical History I&D, debridement necrotizing fa sciitis left ankle 12/27/2017 Surgical History Left ankle I & D Surgical History Gallbladder 01/2018 Surgical History Lap. cholecystectomy 02/17/2018 Surgical History colonoscopy 06/17/2019 Surgical History Colonoscopy 06/17/2019 Surgical History low back surgery 07/25/2020 Surgical History Cardiac cath with stent placeme nt mid LAD 03/27/2022 Hospitalization History tachycardia 1999 Hospitalization History necrotizing fasciitis 2017 Hospitalization History see above [facility] Other 02-01-2015 History general Narrative - Reported* Type Description Date Medical History DM2 Medical History HTN Medical History Sleep apnea Medical History hypercalcemia due to PHT s/p [facility]oselito in [facility] Medical History neuropathy Medical History 12/2014 colonscopy refused Medical History 12/31/2015 MRI left knee Medical History 04/15/19 colonoscopy refused; col oguard ordered Medical History 06/17/19 Colonoscopy -abnormal repeat in 4 years (pos cologuard) Medical History 05/2019 Pap w/ Dr. Patel Medical History Skin ulcer of left f oot, limited to breakdown of skin Medical History Sepsis, unspecified organism Medical History H/O parathyroidectomy Medical History RIGHT FOOT FRACTURE Medical History LEFT FOOT ZEPEDA SEEING PODIATRIS T Surgical History cervical fusion and low back fu baudilio 2010 Surgical History Procedure:;Disease:Preg ellen 1989 Surgical History previous cervical fusion 1997 Surgical History Procedure:;Disease:Pregnanc y 1991 Surgical History c/section 1989 Surgical History Procedure:;Disease:Pregnanc y 1993 Surgical History laposcropy 1988 Surgical History Procedure:tubal ligation Surgical History Procedure:Low back fusion Surgical History tubal ligation 1993 Surgical History 2 parathyroids removed 11/2012 Surgical History Procedure:cervical fusion Surgical History Bilateral eyelid surgery 2 Surgical History Procedure:x2 thyroid glands rem humza 2012 Surgical History left knee arthoscopy 02/2016 Surgical History lithotripsy 03/2015 Surgical History left knee arthroscopy 02/2016 Surgical History partial left knee replacement Surgical History incision and drainag e necrotizing fasciiitis seroma/bullae left lateral ankle/midfoot 12/27/17 Surgical History partial left knee replacement 0 12/2016 Surgical History I&D, debridement necrotizing fa sciitis left ankle 12/27/2017 Surgical History Left ankle I & D Surgical History Gallbladder 01/2018 Surgical History Lap. cholecystectomy 02/17/2018 Surgical History colonoscopy 06/17/2019 Surgical History Colonoscopy 06/17/2019 Surgical History low back surgery 07/25/2020 Surgical History Cardiac cath with stent placeme nt mid LAD 03/27/2022 Hospitalization History tachycardia 1999 Hospitalization History necrotizing fasciitis 2017 Hospitalization History see above [facility] Other 02-01-2015 History general Narrative - Reported* Type Description Date Medical History DM2 Medical History HTN Medical History Sleep apnea Medical History hypercalcemia due to PHT s/p [facility]oselito in [facility] Medical History neuropathy Medical History 12/2014 colonscopy refused Medical History 12/31/2015 MRI left knee Medical History 04/15/19 colonoscopy refused; col oguard ordered Medical History 06/17/19 Colonoscopy -abnormal repeat in 4 years (pos cologuard) Medical History 05/2019 Pap w/ Dr. Patel Medical History Skin ulcer of left f oot, limited to breakdown of skin Medical History Sepsis, unspecified organism Medical History H/O parathyroidectomy Medical History RIGHT FOOT FRACTURE Medical History LEFT FOOT ZEPEDA SEEING PODIATRIS T Surgical History cervical fusion and low back fu baudilio 2010 Surgical History Procedure:;Disease:Preg ellen 1989 Surgical History previous cervical fusion 1997 Surgical History Procedure:;Disease:Pregnanc y 1991 Surgical History c/section 1989 Surgical History Procedure:;Disease:Pregnanc y 1993 Surgical History laposcropy 1988 Surgical History Procedure:tubal ligation Surgical History Procedure:Low back fusion Surgical History tubal ligation 1993 Surgical History 2 parathyroids removed 11/2012 Surgical History Procedure:cervical fusion Surgical History Bilateral eyelid surgery Surgical History Procedure:x2 thyroid glands rem humza 2012 Surgical History left knee arthoscopy 02/2016 Surgical History lithotripsy 03/2015 Surgical History left knee arthroscopy 02/2016 Surgical History partial left knee replacement Surgical History incision and drainag e necrotizing fasciiitis seroma/bullae left lateral ankle/midfoot 12/27/17 Surgical History partial left knee replacement 0 12/2016 Surgical History I&D, debridement necrotizing fa sciitis left ankle 12/27/2017 Surgical History Left ankle I & D Surgical History Gallbladder 01/2018 Surgical History Lap. cholecystectomy 02/17/2018 Surgical History colonoscopy 06/17/2019 Surgical History Colonoscopy 06/17/2019 Surgical History low back surgery 07/25/2020 Surgical History Cardiac cath with stent placeme nt mid LAD 03/27/2022 Surgical History reconstruction lt foot surgery 12/29/2022 Hospitalization History tachycardia 1999 Hospitalization History necrotizing fasciitis 2017 Hospitalization History see above [facility] Other 02-01-2015 History general Narrative - Reported* Type Description Date Medical History DM2 Medical History HTN Medical History Sleep apnea Medical History hypercalcemia due to PHT s/p [facility]elito in [facility] Medical History neuropathy Medical History 12/2014 colonscopy refused Medical History 12/31/2015 MRI left knee Medical History 04/15/19 colonoscopy refused; col oguard ordered Medical History 06/17/19 Colonoscopy -abnormal repeat in 4 years (pos cologuard) Medical History 05/2019 Pap w/ Dr. Patel Medical History Skin ulcer of left f oot, limited to breakdown of skin Medical History Sepsis, unspecified organism Medical History H/O parathyroidectomy Medical History RIGHT FOOT FRACTURE Medical History LEFT FOOT ZEPEDA SEEING PODIATRIS T Surgical History cervical fusion and low back fu baudilio2010 Surgical History Procedure:;Disease:Preg ellen 1989 Surgical History previous cervical fusion 1997 Surgical History Procedure:;Disease:Pregnanc y 1991 Surgical History c/section 1989 Surgical History Procedure:;Disease:Pregnanc y 1993 Surgical History laposcropy 1988 Surgical History Procedure:tubal ligation Surgical History Procedure:Low back fusion Surgical History tubal ligation 1993 Surgical History 2 parathyroids removed 11/2012 Surgical History Procedure:cervical fusion Surgical History Bilateral eyelid surgery 2 Surgical History Procedure:x2 thyroid glands rem humza 2012 Surgical History left knee arthoscopy 02/2016 Surgical History lithotripsy 03/2015 Surgical History left knee arthroscopy 02/2016 Surgical History partial left knee replacement Surgical History incision and drainag e necrotizing fasciiitis seroma/bullae left lateral ankle/midfoot 12/27/17 Surgical History partial left knee replacement 0 12/2016 Surgical History I&D, debridement necrotizing fa sciitis left ankle 12/27/2017 Surgical History Left ankle I & D Surgical History Gallbladder 01/2018 Surgical History Lap. 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 Patel Medical History Skin ulcer of left f oot, limited to breakdown of skin Medical History Sepsis, unspecified organism Medical History H/O parathyroidectomy Medical History RIGHT FOOT FRACTURE Medical History LEFT FOOT ZEPEDA SEEING PODIATRIS T Surgical History cervical fusion and low back fu 2010 Surgical History Procedure:;Disease:Preg ellen 1989 Surgical History previous cervical fusion 1997 Surgical History Procedure:;Disease:Pregnanc y 1991 Surgical History c/section 1989 Surgical History Procedure:;Disease:Pregnanc y 1993 Surgical History laposcropy 1988 Surgical History Procedure:tubal ligation Surgical History Procedure:Low back fusion Surgical History tubal ligation 1993 Surgical History 2 parathyroids removed 11/2012 Surgical History Procedure:cervical fusion Surgical History Bilateral eyelid surgery 2 Surgical History Procedure:x2 thyroid glands rem humza 2012 Surgical History left knee arthoscopy 02/2016 Surgical History lithotripsy 03/2015 Surgical History left knee arthroscopy 02/2016 Surgical History partial left knee replacement Surgical History incision and drainag e necrotizing fasciiitis seroma/bullae left lateral ankle/midfoot 12/27/17 Surgical History partial left knee replacement 0 12/2016 Surgical History I&D, debridement necrotizing fa sciitis left ankle 12/27/2017 Surgical History Left ankle I & D Surgical History Gallbladder 01/2018 Surgical History Lap. cholecystectomy 02/17/2018 Surgical History colonoscopy 06/17/2019 Surgical History Colonoscopy 06/17/2019 Surgical History low back surgery-fusion 020 Surgical History Cardiac cath with stent placeme nt mid LAD 03/27/2022 Surgical History reconstruction lt foot surgery Dr. 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 Patel Medical History Skin ulcer of left f oot, limited to breakdown of skin Medical History Sepsis, unspecified organism Medical History H/O parathyroidectomy Medical History RIGHT FOOT FRACTURE Medical History LEFT FOOT ZEPEDA SEEING PODIATRIS T Surgical History cervical fusion and low back fu 2010 Surgical History Procedure:;Disease:Preg ellen 1989 Surgical History previous cervical fusion 1997 Surgical History Procedure:;Disease:Pregnanc y 1991 Surgical History c/section 1989 Surgical History Procedure:;Disease:Pregnanc y 1993 Surgical History laposcropy 1988 Surgical History Procedure:tubal ligation Surgical History Procedure:Low back fusion Surgical History tubal ligation 1993 Surgical History 2 parathyroids removed 11/2012 Surgical History Procedure:cervical fusion Surgical History Bilateral eyelid surgery Surgical History Procedure:x2 thyroid glands rem humza 2012 Surgical History left knee arthoscopy 02/2016 Surgical History lithotripsy 03/2015 Surgical History left knee arthroscopy 02/2016 Surgical History partial left knee replacement Surgical History incision and drainag e necrotizing fasciiitis seroma/bullae left lateral ankle/midfoot 12/27/17 Surgical History partial left knee replacement 0 12/2016 Surgical History I&D, debridement necrotizing fa sciitis left ankle 12/27/2017 Surgical History Left ankle I & D Surgical History Gallbladder 01/2018 Surgical History Lap. cholecystectomy 02/17/2018 Surgical History colonoscopy 06/17/2019 Surgical History Colonoscopy 06/17/2019 Surgical History low back surgery-fusion 020 Surgical History Cardiac cath with stent placeme nt mid LAD 03/27/2022 Surgical History reconstruction lt foot surgery Dr. Castro 12/29/2022 Surgical History STEROID INJECTIONS IN LOW BACK AND RIGHT HIP 08/2023 Hospitalization History tachycardia 1999 Hospitalization History necrotizing fasciitis 2017 Hospitalization History see above [facility] Other Evaluation noteNocox monett [employer] Other Evaluation noteNo InformationNocox monett [employer] Other Evaluation noteNocox monett [employer] Other evaluation noteNo assessment information available [facility] Work Phone: Evaluation note* Diagnosis Coronary artery disease, unspecified vessel or lesion type, unspecified whether angina present, unspecified whether alturas or transplanted heart- Primary Essential hypertension Unspecified essential hypertension 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 Hyperlipidemia, unspecified hyperlipidemia type Obstructive sleep apnea syndrome Obstructive sleep apnea (adult) (pediatric) Class 2 obesity with body mass index (BMI) of 37.0 to 37.9 in adult, unspecified obesity type, unspecified whether serious comorbidity present Insulin-requiring or dependent type II diabetes mellitus (CMS/HCC) Type II or unspecified type diabetes mellitus without mention of complication, not stated as uncontrolled documented in this encounter [facility] Work Phone: Evaluation note* Diagnosis Onset Date Resolution Status Chronic pain acute Inflammation of sacroiliac joint acute Osteoarthritis of spine with radiculopathy, lumbar region acute Trochanteric bursitis acute [facility] Work Phone: Evaluation note* Diagnosis Onset Date Resolution Status Chronic pain acute Inflammation of sacroiliac joint acute Osteoarthritis of spine with radiculopathy, lumbar region acute Trochanteric bursitis acute CKD (chronic kidney disease) stage 3, GFR 30-59 ml/min acute Hyperlipidemia acute Hyperparathyroidism acute [id number] acute Hyperuricemia acute Hypomagnesemia acute Nephrolithiasis acute Type 2 diabetes mellitus wit h diabetic chronic kidney disease acute [facility] Work Phone: Evaluation note* Diagnosis Onset Date Resolution Status Chronic pain acute Inflammation of sacroiliac joint acute Osteoarthritis of spine with radiculopathy, lumbar region acute Trochanteric bursitis acute CKD (chronic kidney disease) stage 3, GFR 30-59 ml/min acute Hyperlipidemia acute Hyperparathyroidism acute [id number] acute Hyperuricemia acute Hypomagnesemia acute Nephrolithiasis acute Type 2 diabetes mellitus wit h diabetic chronic kidney disease acute Chronic pain acute Lumbar muscle pain acute Osteoarthritis of spine with radiculopathy, lumbar region acute [facility] Work Phone: evaluation note* Diagnosis Onset Date Resolution Status CKD (chronic kidney disease) stage 3, GFR 30-59 ml/min acute Hyperlipidemia acute Hyperparathyroidism acute [id number] acute Hyperuricemia acute Hypomagnesemia acute Nephrolithiasis acute Type 2 diabetes mellitus wit h diabetic chronic kidney disease acute Chronic pain acute Lumbar muscle pain acute Osteoarthritis of spine with radiculopathy, lumbar region acute Chronic pain acute Osteoarthritis of spine with radiculopathy, lumbar region acute Sacroiliitis, not elsewhere classified acute [facility] Work Phone: Evaluation note* Diagnosis Onset Date Resolution Status Chronic pain acute Lumbar muscle pain acute Osteoarthritis of spine with radiculopathy, lumbar region acute Chronic pain acute Osteoarthritis of spine with radiculopathy, lumbar region acute Sacroiliitis, not elsewhere classified acute [facility] Work Phone: Evaluation note* Diagnosis Onset Date Resolution Status Chronic pain acute Lumbar muscle pain acute Osteoarthritis of spine with radiculopathy, lumbar region acute Chronic pain acute Osteoarthritis of spine with radiculopathy, lumbar region acute Sacroiliitis, not elsewhere classified acute Obstructive apnea [facility] Work Phone: Evaluation note* Diagnosis Onset Date Resolution Status Chronic pain acute Lumbar muscle pain acute Osteoarthritis of spine with radiculopathy, lumbar region acute Chronic pain acute Osteoarthritis of spine with radiculopathy, lumbar region acute Sacroiliitis, not elsewhere classified acute Obstructive apnea acute Chronic pain acute Osteoarthritis of spine with radiculopathy, lumbar region acute Sacroiliitis, not elsewhere classified [facility] Work Phone: History general Narrative - ReportedNoAntVoice [employer] Other [facility] general Narrative - ReportedNoAntVoice [employer] Other Hospital Discharge instructions Additional Instructions DISCHARGE INSTRUCTIONS FOR COLONOSCOPY WHAT TO EXPECT: - You may feel full, gassy or cramping after your procedure. In some cases, this may be from a few hours to a day. Walking may help relieve the discomfort. - If you have polyp(s) removed you may note some minor bloody discharge after your first bowel movements. - You should begin to recover from anesthesia within 1 hour of the procedure, however may feel groggy for the next 24 hours. DO's AND DON'Ts: - Call your doctor right away if you have a hard abdomen, severe pain, are passing lots of bright red blood or clots. - Call your doctor if you develop any rashes, hives or difficulty breathing. - Let your doctor know if you have not had a bowel movement by 3 days after your procedure. - If you take 81 mg aspirin for your heart it is safe to resume this medication. - If you take other blood thinner medications your doctor will instruct you when these can safely be resumed. - Do NOT drive for 24 hours. - Do NOT operate machinery such as power tools, lawn mowers, snow blowers, sewing machines, etc. for 24 hours. - Avoid alcoholic beverages and drugs for allergies, nerves, or sleep. - Do NOT stay alone. Do NOT leave your child unattended. - Do NOT make important personal or business decisions or sign any legal documents. - Eat solid foods and drink liquids in smaller amounts than usual until normal appetite returns. If you should experience an upset stomach, liquids high in sugar content (soda, Oskar-Aid, non-acid juices) are recommended. - You can resume normal activities tomorrow. FOLLOW UP & RECOMMENDATIONS: -Notify the doctor if you have any problems. -Repeat colonoscopy in 3 years. -Follow up with PCP. -Office number [phone]. [facility] Work Phone: Reason for referral (narrative)* Consultation (Routine) - Authorized Specialty Diagnoses / Procedures Referred By Svetlanaac t Referred To Contact Cardiology Diagnoses Coronary artery disease, unspecified vessel or lesion type, unspecified whether angina present, unspecified whether alturas or transplanted heart Procedures Follow Up In Cardiology Rosalinda Torres MD [address] [place] [address], [address] [address] Rosalinda Torres MD [address] [place] [address] 2, [address] [address] Referral ID Status Reason Start Date Expiration Date V isits Requested Visits Authorized [id number] Authorized 02/22/2024 02/21/2025 1 1 [facility] Work Phone: Summary Purpose Family History Unknown Family Member Name Dates Details Family history of CABG: Fath er(V17.49, Z82.49) Status:Active Unknown Family Member Name Dates Details Family history of CABG: Fath er(V17.49, Z82.49) Status:Active Unknown Family Member Name Dates Details Family history of CABG: Fath er(V17.49, Z82.49) Status:Active Unknown Family Member Name Dates Details Family history of CABG: Fath er(V17.49, Z82.49) Status:Active Relationship Condition Age at Onset Recorded Date/T vero father Heart disease Unknown Presence of cardiac pacemaker Unknown Unknown History of coronary artery bypass surgery Unknown Dementia Unknown Not Specified Asthma Unknown Relationship Condition Age at Onset Recorded Date/T vero father Heart disease Unknown Presence of cardiac pacemaker Unknown Presence of stent in coronary artery Unkn own History of coronary artery bypass surgery Unknown Dementia Unknown Not Specified Asthma Unknown Unknown Family Member Name Dates Details Family history of CABG: Robyn er(V17.49, Z82.49) Status:Active Relationship Condition Age at Onset Recorded Date/T vero father Heart disease Unknown Presence of cardiac pacemaker Unknown Presence of stent in coronary artery Unkn own History of coronary artery bypass surgery Unknown Dementia Unknown Not Specified Asthma Unknown father Hypertension Unknown Heart disease Unknown grandparent Diabetes mellitus Unknown Unknown grandparent Unknown Diabetes mellitus Unknown Not Specified Hypertension Unknown sibling Diabetes mellitus Unknown Relationship Condition Age at Onset Recorded Date/T vero father Heart disease Unknown Presence of cardiac pacemaker Unknown Presence of stent in coronary artery Unkn own History of coronary artery bypass surgery Unknown Dementia Unknown mother Asthma Unknown father Hypertension Unknown Heart disease Unknown grandparent Diabetes mellitus Unknown Unknown grandparent Unknown Diabetes mellitus Unknown mother Hypertension Unknown sibling Diabetes mellitus Unknown Advance Directives Advance Directive Response Recorded Date/ Time Advance Directives No September 03, 2017 6:19am Advance Directive Response Recorded Date/ Time Advance Directives No September 03, 2017 7:19am Chief Complaint * RITA COBB is being seen for a 1-2 month follow-up of. * Patient is in the office after having recent cardiac catheterization that revealed occlusion of theLAD requiring placement of drug-eluting stent with no complications and resolution of her symptoms.She no longer has dyspnea. She was also diagnosed with sleep apnea and has been on therapy with remarkable improvement. She feels great and her blood sugars get under control. She is only on Lovaza but no statin or other agent for hyperlipidemia. We discussed the options of therapy since she has history of intolerance to Lipitor. Her weight should be coming down and encouragement in that regard were provided. Examination is only remarkable for obesity. She is tolerating dual antiplatelet therapy without a problem. * Assessment/recommendation: * 1 CAD status post PCI of the LAD February 2022 for total occlusion with resolution of symptoms. Discussed that with the patient the need for aggressive risk factor modification especially lowering LDL, ensuring A1c below 7, exercise and weight control. * 2 diabetes managed by PCP, A1c just over 7 with a goal to bring it further down * 3 hypertension medical therapy under control * 4 hyperlipidemia on Lovaza which has been tolerated, the patient is agreeable to go on [id number] mg daily along with Zetia 10 mg daily for better LDL control with a goal to bring it below 70mg/dL * 5 obesity, encouraged the patient to control caloric consumption and remain physically active * 6 sleep apnea on CPAP machine patient has been compliant with it. * RITA COBB is being seen for a 6 month follow-up of. * Patient is in the office for follow-up for the problems noted below. She has not had any trouble since her angioplasty. She has Jbpkkni-Rhqsa-Qgagy disease and had recent surgery on the left foot that remains in cast. She will finish up the Brilinta when she finishes the present bottle. It has beenyears since her angioplasty of the LAD. She had no orthopnea PND and no palpitations. She has no side effect of medications. Her diabetes seems to be under control. Her blood pressure is under control medical therapy and her lipids have been aggressively treated. * Assessment/recommendation: * 1 CAD status post PCI of the LAD February 2022 for total occlusion with resolution of symptoms. Aggressive risk factor modification again was emphasized. Brilinta will be discontinued * 2 diabetes managed by PCP, A1c is 7.0. * 3 hypertension medical therapy under control * 4 hyperlipidemia on Lovaza and twice weekly Lipitor. Lipid profile is ordered to follow-up. * 5 obesity, encouraged the patient to control caloric consumption and remain physically active * 6 sleep apnea on CPAP machine patient has been compliant with it. * 7 Ztpdexk-Ukfzf-Zqglf joint in the ankles status post recent surgery on the left foot with plan to repair the right foot down the road Reason for Referral Reason Patient is need ing to having screening colonoscopy. Please schedule with [facility]. Patient DOES NOT want to see Dr. Bryant. Please call patient to schedule Diagnosis 1 Screening for colon cancer (Z12.11) Referral Organization [facility] Family Medictessa Ovalles Referring Provider First Name Charan Referring Provider Last Name Jacinto Referring Provider Specialty Family Prac pop Referred Organization [facility] Gastroenterolo hawa Referred Provider Yasmeen Treadwell Referred Address [address] [place] [phone] Referred Provider Specialty Gastroentero logy Referral Priority Routine General Notes Fore, Renée M 023 10:30:05 AM >Received today and sent P2P Reason stat consult and lou at Diagnosis 1 Chest pressure (R07. 89) Diagnosis 2 Shortness of breath (R06.02) Diagnosis 3 Type 2 diabetes wicho itus with diabetic neuropathy, unspecified (E11.40) Diagnosis 4 Obstructive apnea (G 47.33) Referral Organization [facility] Family Matthew Ovalles Referring Provider First Name Charan Referring Provider Last Name Jacinto Referring Provider Specialty Family Prac pop Referred Organization [facility] enter Referred Address [address] ,[place], [place] Referred Provider Specialty Cardiology Referral Priority Stat Referral Appointment Date 2022-03-14 Chief Complaint and Reason for Visit Chief Complaint zepeda on feet E11.40 E79.9 E78.5 N18.30 I12.9 E11.22 e11.610 Chief Complaint zepeda on feet E11.40 E79.9 E78.5 N18.30 I12.9 E11.22 e11.610 e11.610 Chief Complaint zepeda on feet E11.40 E79.9 E78.5 N18.30 I12.9 E11.22 e11.610 e11.610 Booster Flu Shot Chief Complaint E11.40 E79.9 E78.5 N 18.30 I12.9 E11.22 e11.610 e11.610 vaccine Flu Shot Shingrix Chief Complaint shigrix vaccine annual, F2F for bipap Chief Complaint shigrix vaccine annual, F2F for bipap N18.30 I12.9 E11.22 E55.9 Z79.0 E21.3 Chief Complaint annual, F2F for bipa p N18.30 I12.9 E11.22 E55.9 Z79.0 E21.3 M54.9 R07.81 M43.16 Chief Complaint M54.9 R07.81 M43.16 DM K low back pain Chief Complaint DM K low back pain Z98.1 Chief Complaint Z98.1 M46.1 Back Pain Chief Complaint Z98.1 M46.1 Back Pain n18.30 i12.9 e11.22 e78.0 e21.3 Chief Complaint Z98.1 M46.1 Back Pain n18.30 i12.9 e11.22 e78.0 e21.3 Screening Chief Complaint Back Pain n18.30 i12.9 e11.22 e78.0 e21.3 Screening DM e78.5 Chief Complaint Screening Congestion Med Refill, Increased Lt Hip Pain DM e78.5 J45.909 Chief Complaint Med Refill, Increase d Lt Hip Pain DM e78.[address] Casey J45.909 Chief Complaint Cough Per Dr. Casey J45.90Livan RECHECK LT HIP AND LUMBAR PAIN Amb Documentation Amb Documentation Amb Documentation N18.30 I12.9 E11.22 E55.9 E79.0 E21.3 E83.42 E78.5 Reason for Visit Chronic pain Inflammation of sacroiliac joint Osteoarthritis of spine with radiculopathy, lumbar region Trochanteric bursitis Chief Complaint Cough Per Dr. Casey J45.909 RECHECK LT HIP AND LUMBAR PAIN Amb Documentation Amb Documentation Amb Documentation N18.30 I12.9 E11.22 E55.9 E79.0 E21.3 E83.42 E78.5 RENAL 6 month follow up Reason for Visit Chronic pain Inflammation of sacroiliac joint Osteoarthritis of spine with radiculopathy, lumbar region Trochanteric bursitis CKD (chronic kidney disease) stage 3, GFR 30-59 ml/min Hyperlipidemia Hyperparathyroidism [id number] Hyperuricemia Hypomagnesemia Nephrolithiasis Type 2 diabetes mellitus with diabetic chronic kidney disease Chief Complaint Cough Per Dr. Casey J45.909 RECHECK LT HIP AND LUMBAR PAIN Amb Documentation Amb Documentation Amb Documentation N18.30 I12.9 E11.22 E55.9 E79.0 E21.3 E83.42 E78.5 RENAL 6 month follow up M47.26 Reason for Visit Chronic pain Inflammation of sacroiliac joint Osteoarthritis of spine with radiculopathy, lumbar region Trochanteric bursitis CKD (chronic kidney disease) stage 3, GFR 30-59 ml/min Hyperlipidemia Hyperparathyroidism [id number] Hyperuricemia Hypomagnesemia Nephrolithiasis Type 2 diabetes mellitus with diabetic chronic kidney disease Chief Complaint Cough Per Dr. Jacinto [id number] RECHECK LT HIP AND LUMBAR PAIN Amb Documentation Amb Documentation Amb Documentation N18.30 I12.9 E11.22 E55.9 E79.0 E21.3 E83.42 E78.5 RENAL 6 month follow up M47.26 MRI RESULTS Reason for Visit Chronic pain Inflammation of sacroiliac joint Osteoarthritis of spine with radiculopathy, lumbar region Trochanteric bursitis CKD (chronic kidney disease) stage 3, GFR 30-59 ml/min Hyperlipidemia Hyperparathyroidism [id number] Hyperuricemia Hypomagnesemia Nephrolithiasis Type 2 diabetes mellitus with diabetic chronic kidney disease Chronic pain Lumbar muscle pain Osteoarthritis of spine with radiculopathy, lumbar region Chief Complaint Amb Documentation N18.30 I12.9 E11.22 E55.9 E79.0 E21.3 E83.42 E78.5 RENAL 6 month follow up M47.26 MRI RESULTS Amb Documentation Amb Documentation Amb Documentation RECHECK LT HIP AND LUMBAR PAIN Reason for Visit CKD (chronic kidney disease) stage 3, GFR 30-59 ml/min Hyperlipidemia Hyperparathyroidism [id number] Hyperuricemia Hypomagnesemia Nephrolithiasis Type 2 diabetes mellitus with diabetic chronic kidney disease Chronic pain Lumbar muscle pain Osteoarthritis of spine with radiculopathy, lumbar region Chronic pain Osteoarthritis of spine with radiculopathy, lumbar region Sacroiliitis, not elsewhere classified Chief Complaint M47.26 MRI RESULTS Amb Documentation Amb Documentation Amb Documentation RECHECK LT HIP AND LUMBAR PAIN Back Pain Back Pain Reason for Visit Chronic pain Lumbar muscle pain Osteoarthritis of spine with radiculopathy, lumbar region Chronic pain Osteoarthritis of spine with radiculopathy, lumbar region Sacroiliitis, not elsewhere classified Chief Complaint MRI RESULTS Amb Documentation Amb Documentation Amb Documentation RECHECK LT HIP AND LUMBAR PAIN Back Pain Back Pain dinora/annual visit Reason for Visit Chronic pain Lumbar muscle pain Osteoarthritis of spine with radiculopathy, lumbar region Chronic pain Osteoarthritis of spine with radiculopathy, lumbar region Sacroiliitis, not elsewhere classified Obstructive apnea Chief Complaint MRI RESULTS Amb Documentation Amb Documentation Amb Documentation RECHECK LT HIP AND LUMBAR PAIN Back Pain Back Pain dinora/annual visit F/U AFTER LAURA SI JOINT INJ Reason for Visit Chronic pain Lumbar muscle pain Osteoarthritis of spine with radiculopathy, lumbar region Chronic pain Osteoarthritis of spine with radiculopathy, lumbar region Sacroiliitis, not elsewhere classified Obstructive apnea Chronic pain Osteoarthritis of spine with radiculopathy, lumbar region Sacroiliitis, not elsewhere classified Additional Source Comments INFORMATION SOURCE (unrecogn ized section and content) DATE CREATED AUTHOR 07/28/2018 [facility] DATE CREATED AUTHOR AUTHOR'S NAT CORTEZ 03/18/2022 [facility] DATE CREATED AUTHOR AUTHOR'S ORGANIZ ATION 10/17/2022 [facility] DATE CREATED AUTHOR AUTHOR'S ORGANIZ ATION 04/13/2023 [facility] DATE CREATED AUTHOR AUTHOR'S ORGANIZ ATION 05/08/2023 [facility] DATE CREATED AUTHOR AUTHOR'S ORGANIZ ATION 05/08/2023 [facility] DATE CREATED AUTHOR AUTHOR'S ORGANIZ ATION 02/10/2024 [facility] EPIC DATE CREATED AUTHOR AUTHOR'S ORGANIZ ATION 02/23/2024 [facility] DATE CREATED AUTHOR AUTHOR'S ORGANIZ ATION 06/01/2024 [facility] REASON FOR VISIT (unrecogniz ed section and content) Reason Comments Follow-up [address] 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, back4 month Follow uppap issuesSHINGRIX #2 // [facility] SPOUSESHINGRIX #1 // [facility] SPOUSEMODERNA BIVALENT BOOSTERAFLURIA FLU VACCINECKD and HTNreview labSLEEP LABhosp recheck/ discuss disability processDocumentationFYI/ updateDisability paperworkEmployee Program F/UCKDPt no show Employee Diabetes Ed program 4/8Clinicalneuropathy, chest pressure ,SOBfyirefillsneeds fmla, FACETIME [phone] Care Teams (unrecognized sec tion and content) Team Status: Active Member Role Status Dates Charan Casey , DO Primary Care Provider Active Team Status: Inactive Member Role Status Dates Charan Casey , DO Primary Care Provider Active Federico Sepulveda MD Attending Provider Active Team Status: Inactive Member Role Status Dates Charan Casey , DO Primary Care Provider Active Renée Watts RPH Attending Provider Active Team Status: Inactive Member Role Status Dates Charan Casey , DO Primary Care Provider Active Ric Ceja DPM Attending Provider Active Team Status: Inactive Member Role Status Dates Charan Casey , DO Primary Care Provider, Other Provider Active Elpidio Whipple MD Attending Provider Active Team Status: Inactive Member Role Status Dates Charan Casey , DO Primary Care Provider Active Mathieu Paul , DO Emergency Provider Active Team Status: Active Member Role Status Dates Charan Casey , DO Primary Care Provider Active Renée Watts RPH Attending Provider Active Team Status: Inactive Member Role Status Dates Charan Casey , DO Primary Care Provider Active Dipak Amaro MD Attending Provider Active Team Status: Inactive Member Role Status Dates Charan Casey , DO Primary Care Provider Active Elpidio Whipple MD Attending Provider Active Team Status: Inactive Member Role Status Dates Charan Casey , DO Primary Care Provider, Attending Provi fanny Active Team Status: Inactive Member Role Status Dates Charan Casey , DO Primary Care Provider Active Blas Ortiz MD Attending Provider Active Team Status: Active Member Role Status Dates Charan Casey , DO Primary Care Provider, Attending Provi fanny Active Team Status: Inactive Member Role Status Dates Charan Casey , DO Primary Care Provider Active Thierno Chatterjee MD Attending Provider Active Team Status: Inactive Member Role Status Dates Charan Casey , DO Primary Care Provider Active Yasmeen Treadwell MD Attending Provider Active Team Status: Inactive Member Role Status Dates Charan Casey , DO Primary Care Provider Active Sta rt: October 06, 2023 End: October 06, 2023 Yasmeen Treadwell MD Attending Provider Active Start: October 06, 2023 End: October 06, 2023 Team Status: Inactive Member Role Status Dates MADISYN Greene Attending Provider Activ e Start: October 21, 2023 End: October 21, 2023 Team Status: Inactive Member Role Status Dates Blas Ortiz MD Attending Provider Active Sta rt: October 28, 2023 End: October 28, 2023 Team Status: Active Member Role Status Dates Charan Casey , DO Primary Care Provide r, Attending Provider Active Start: November 05, 2023 Team Status: Inactive Member Role Status Dates Charan Casey , DO Primary Care Provide r, Attending Provider Active Start: November 26, 2023 End: November 26, 2023 Team Status: Inactive Member Role Status Dates Charan Casey , DO Primary Care Provide r, Attending Provider Active Start: December 30, 2023 End: December 30, 2023 Team Status: Inactive Member Role Status Dates Charan Casey DO Primary Care Provide r, Attending Provider Active Start: November 05, 2023 End: November 05, 2023 Team Status: Inactive Member Role Status Dates Charan Casey DO Attending Provider Active Start: December 30, 2023 End: December 30, 2023 Panel Machine Tender Relationship Specialty Start Date End Date Charan Casey DO [address] [place] [address] PCP - General Family Medicine 02/22/24 Rosalinda Torres MD [address] [facility] 2, [address] [address] Consulting Physician Cardiology 02/22/24 Team Status: Inactive Member Role Status Dates Charan Casey DO Primary Care Provider Active Sta rt: February 04, 2024 End: February 04, 2024 Blas Ortiz MD Attending Provider Active Sta rt: February 04, 2024 End: February 04, 2024 Team Status: Active Member Role Status Dates Charan Casey DO Primary Care Provider Active Sta rt: February 12, 2024 ITZ Marsh Attending Provider Active Start: February 12, 2024 Team Status: Active Member Role Status Dates Charan Casey DO Primary Care Provider Active Sta rt: February 17, 2024 Kellie Garcia LPN Attending Provider Active Sta rt: February 17, 2024 Team Status: Active Member Role Status Dates Charan Casey DO Primary Care Provider Active Sta rt: February 23, 2024 Kellie Garcia LPN Attending Provider Active Sta rt: February 23, 2024 Team Status: Inactive Member Role Status Dates Charan Casey DO Primary Care Provide r, Attending Provider Active Start: February 29, 2024 End: February 29, 2024 Team Status: Inactive Member Role Status Dates Charan Casey DO Primary Care Provider Active Sta rt: March 01, 2024 End: March 01, 2024 Elpidio Whipple MD Attending Provider Active Start : March 01, 2024 End: March 01, 2024 Team Status: Inactive Member Role Status Dates Charan Casey DO Primary Care Provider Active Sta rt: March 05, 2024 End: March 05, 2024 Blas Ortiz MD Attending Provider Active Sta rt: March 05, 2024 End: March 05, 2024 Team Status: Inactive Member Role Status Dates Charan Casey DO Primary Care Provider Active Sta rt: March 17, 2024 End: March 17, 2024 Blas Ortiz MD Attending Provider Active Sta rt: March 17, 2024 End: March 17, 2024 Team Status: Active Member Role Status Dates Mendy Lopez LPN Care Manager Active Blas Ortiz MD Specialist Active Shaina Munroe DO Specialist Active Acosta Castro DPM MS Specialist Active Rosalinda Torres MD Specialist Active Charan Casey DO Primary Care Provider Active Team Status: Active Member Role Status Dates Charan Casey DO Primary Care Provider Active Sta rt: March 18, 2024 Mendy Lopez LPN Attending Provider Active Sta rt: March 18, 2024 Team Status: Active Member Role Status Dates Charan Casey DO Primary Care Provider Active Sta rt: April 19, 2024 Medny Lopez LPN Attending Provider Active Sta rt: April 19, 2024 Team Status: Active Member Role Status Dates Charan Casey DO Primary Care Provider Active Sta rt: May 13, 2024 ITZ Marsh Attending Provider Active Start: May 13, 2024 Team Status: Inactive Member Role Status Dates Charan Casey DO Primary Care Provider Active Sta rt: May 23, 2024 End: May 23, 2024 Blas Ortiz MD Attending Provider Active Sta rt: May 23, 2024 End: May 23, 2024 Team Status: Inactive Member Role Status Josafat Casey DO Primary Care Provider Active Sta rt: May 31, 2024 End: May 31, 2024 Blas Ortiz MD Attending Provider Active Sta rt: May 31, 2024 End: May 31, 2024 Team Status: Active Member Role Status Dates Charan Casey DO Primary Care Provider Active Sta rt: May 31, 2024 Blas Ortiz MD Attending Provider, Other Provider Active Start: May 31, 2024 Team Status: Inactive Member Role Status Dates Charan Casey DO Primary Care Provider Active Sta rt: June 08, 2024 End: June 08, 2024 Federico Sepulveda MD Attending Provider Active Start: June 08, 2024 End: June 08, 2024 Team Status: Inactive Member Role Status Dates Charan Casey DO Primary Care Provider Active Sta rt: June 13, 2024 End: June 13, 2024 Blas Ortiz MD Attending Provider Active Sta rt: June 13, 2024 End: June 13, 2024 Goals (unrecognized section and content) Goals may be documented in a n alternate section FOR RECORDS PERTAINING TO PATIENTS WHO ARE OR HAVE BEEN ENROLLED IN A CHEMICAL DEPENDENCY/SUBSTANCEABUSE PROGRAM, SOME INFORMATION MAY BE OMITTED. This clinical summary was aggregated from multiple sources. Caution should be exercised in using it in the provision of clinical care. This summary normalizes information from multiple sources, and as a consequence, information in this document may materially change the coding, format and clinical context of patient data. In addition, data may be omitted in some cases. CLINICAL DECISIONS SHOULD BE BASED ON THE PRIMARY CLINICAL RECORDS. [facility] [employer] provides no warranty or guarantee of the accuracy or completeness of information in this document.
== END 2024-06-22 09:21 | disposition home or self-care (01) ==
LOC: EC 09:20
PROVIDERS: Visit Provider Podiatrist Foot & Ankle Surgery
DX: M79.671 Pain in right foot (principal); M79.672 Pain in left foot; M19.072 Primary osteoarthritis, left ankle and foot; M19.071 Primary osteoarthritis, right ankle and foot; Z98.890 Other specified postprocedural states
CPT/HCPCS: 73630

== ENCOUNTER 2025-05-31 14:33 | Outpatient (OUT) | payer OTHER, SELFPAY ==
--- OUTSIDE RECORDS SUMMARY | 2024-02-16 09:30 | XMS_ITS ---
Author Organization The [facility] in [place] Address [address] [place] [address] Care Team Providers Care Salesperson Burial Needs Name Role Phone Charan Delgadillo DO Primary Care Provider Torres Cid [phone] Allergies Allergen (clinical drug ingredient) Drug/Non Drug Allergy documented on EMR Reaction Allergy Type Onset Date Status erythromycin Erythromycin Unknown Drug Allergy A ctive Results Component Value Reference Range Notes XR Foot LT (3 views) * Reviewed date:02/22/2024 03:18:33 PM Interpretation: Performing Lab: Notes/Report: REASON FOR VISIT 2 month f/u Medications Medication SIG (Take, Route, Frequency, Duration) Notes Start Date End Date Status [place] 3 1000 MG 1 capsule Orally Onc [...] Problem Status W/U Status Risk Notes Problem [id number] Pseudarthrosis after fusion or arthrodesis (M96.0) Active confirmed Vital Signs Weight 239 lbs 02/16/2024 Height 67 in 02/16/2024 Temperature 97.9 degrees Fahrenheit 02/16/20 BMI 37.43 kg/m2 02/16/2024 Encounters Encounter Location Date Provider Diagnosis [facility] (PODIATRY) [address] [place] [address] [address] [place] [address] 02/16/2024 Torres Fernandez Charcot's joint of left [...] Notes * Joy COBBDOB:1960 (63 yo F)Acc No.[id number]:02/16/2024 Follow Up Patient: Joy Huertas Provider: Dani Fernandez DPM, MS :1960 A ge:63 Y S ex:Female Date:02/16/2024 Address:[address] [place] [address], [place], [id number] Pcp:Charan Delgadillo, DO Check In:01:12 PM ESTCheck [...] M usculoskeletal: Bone/Joint Symptoms d enies. C fci Pain d enies.?Leg cramps d enies. N [...] Sprinkle 1 capsule Orally Once a dayTaking [place] 3 1000 MG Capsule 1 capsule Orally [...] 02/16/2024 Generated for Simon franks/Laura/Rashiitting on: 0 05/31/2025 08:17 AM EDT History and Physical Notes * [...]
--- OUTSIDE RECORDS SUMMARY | 2024-07-12 06:15 | XMS_ITS ---
Author Organization [facility] in [place] Address [address] [place] [address] Care Team Providers Care Train Gate Attendant Name Role Phone Charan Delgadillo DO Primary Care Provider Torres Cid [phone] Allergies Allergen (clinical drug ingredient) Drug/Non Drug Allergy documented on EMR Reaction Allergy Type Onset Date Status erythromycin Erythromycin Unknown Drug Allergy A ctive Reason For Referral Reason evaluation and treat ment -- see attached order Diagnosis 1 Charcot's joint of l eft foot (M14.672) Diagnosis 2 Charcot's joint, rig ht ankle and foot (M14.671) Referral Organization [facility] (PODIATRY) Referring Provider First Name Torres Referring Provider Last Name Rebecca Referring Provider Speciality Podiatry Referred Provider Vijay Monroy Physical Kimo Referred Provider Specialty Physical Med icine and Rehabilitation Referral Priority Routine REASON FOR VISIT 2-3 week follow up, nail procedure Medications Medication SIG (Take, Route, Frequency, Duration) Notes Start Date End Date Status Metoprolol Succinate 200 MG 1 capsule Orally Once a day for 30 day(s) Active Mag Glycinate 100 MG as directed Orally Active Lyrica 150 MG 1 capsule Orally Onc e a day Active Vitamin D3 50 MCG (1999 UT) 1 capsule Orally Once a day for 90 days 06/10/2023 Active Ekron 3 1000 MG 1 capsule Orally Onc e a day for 30 day(s) Active Fosamax 70 MG 1 tablet 30 minutes before the first food, beverage or medicine of the day with plain water Orally for 30 day(s) Active Brooke-C - as directed Orally A ctive Lyrica 300 MG 1 capsule in the sirisha orlando 1 to 3 hours before bedtime Orally Once a day Active HumaLOG KwikPen 100 UNIT/ML as directed Subcutaneous Act jenna Allopurinol 100 MG 1 tablet Orally Once a day for 30 day(s) Active Benicar 40 MG 1 tablet Orally Once a day for 30 day(s) Active Aspirin 81 MG 1 tablet Orally Once a day for 30 day(s) Active Brilinta 90 MG 1 tablet Orally Twic e a day for 30 day(s) Active Social History Tobacco Use: Social History Observation Description Date Details (start date - stop date) Never Smoker NA - NA Tobacco Use/Smoking Question Answer Notes Patient is a nonsmoker Section Notes: Unknown if smoker Vital Signs Weight 235 lbs 07/12/2024 Height 67 in 07/12/2024 Temperature 97.3 degrees Fahrenheit 07/12/20 Heart Rate 91 /min 07/12/2024 BMI 36.8 kg/m2 07/12/2024 Oximetry 97 % 07/12/2024 Encounters Encounter Location Date Provider Diagnosis [facility] (PODIATRY) [address] [place] [address] [place] [address] 07/12/2024 [facility] Cutaneous abscess of left foot L02.612 Assessments Encounter Date Diagnosis (ICD Code) Assessment Notes Treatment Notes Treatment Clinical Notes Section Notes 07/12/2024 Cutaneous abscess of left foot (ICD-10 - L02.612) Patient is 2 weeks status post I&D for paronychia. Infection has cleared and she is doing well. She should continue to monitor her feet checking them twice daily. She will follow-up for this issue as needed but will follow-up as scheduled for her Charcot issue. She did ask for a prescription for additional physical therapy which was provided today. Plan Of Treatment Treatment Notes Assessment Notes Cutaneous abscess of left foot Patient is 2 weeks status post I&D for paronychia. Infection has cleared and she is doing well. She should continue to monitor her feet checking them twice daily. She will follow-up for this issue as needed but will follow-up as scheduled for her Charcot issue. She did ask for a prescription for additional physical therapy which was provided today. Referrals Referral Date Details 07/12/2024 07/12/2024, evaluati on and treatment -- see attached order, Physical Therapy [facility] [place] Progress Notes * Tracie COBB:1960 (63 yo F)Acc No.[id number]:07/12/2024 Follow Up Patient: Joy CHAVEZ Provider: Dani Fernandez DPM, MS :1960 A ge:63 Y S ex:Female Date:07/12/2024 Address:[address], [id number] Pcp:Charan Delgadillo, DO Check In:10:03 AM ESTCheck O ut:10:46 AM EST Subjective: * Chief Complaints: * 2 -3 week follow up, nail procedure * HPI: G eneral: Patient returns to clinic for evaluation of left great toe nail procedure. States no redness, no drainage. Denies pain. States most of her pain is to her back. Is working with her pain management for this. * ROS: G eneral/Constitutional: Chills d enies. [...] ankle and joints of right foot Modified On:03/25/2023W/U Status:confirmed M25.572 Pain in left ankle a nd joints of left foot Modified On:08/05/2023W/U Status:confirmed M79.671 Pain in right foot Modified [...] Modified On:02/16/2024U Status:confirmed L60.0 Ingrowing nail Modified On:07/24/2024W/U Status:confirmed M14.671 Charcot's joint, rig ht ankle and foot Modified On:06/22/2024W/U Status:confirmed * Medical History: * Surgical History: [...] Sprinkle 1 capsule Orally Once a day Ekron 3 1000 MG Capsule 1 capsule Orally Once a day Vitamin D3 50 MCG (2000 UT) Capsule 1 capsule Orally Once a day Taking Allopurinol 100 MG Tablet 1 tablet Orally [...] 1 capsule Orally Once a day Taking Ekron 3 1000 MG Capsule 1 capsule Orally Once a day Taking Vitamin D3 50 MCG (1999) Capsule 1 capsule Orally Once a day DiscontinuedCephalexin 500 MG Capsule 1 capsule Orally every 12 hours Medication List reviewed and reconciled with the patientDiscontinued Cephalexin 500 MG Capsule 1 capsule Orally every 12 hours Medication List reviewed and reconciled with the patient * Allergies: E stefan[Allergies Verified] Objective: * Vitals: W t:235lbs, Ht: 67 in, Temp:97.3F, HR:91/min, BMI:36.8Index, Pain scale:51-10, Oxygen sat %:97%, Ht-cm: 170.18 cm, Wt-k.59 kg. * Examination: A bdomen Exam:: L eft great toe is without signs of infection from prior nail avulsion and is healing appropriately. Minimal swelling and no erythema. No drainage. No pain on palpation. No signs of infection. Assessment: * Assessment: 1. C utaneous abscess of left foot - L02.612 (Primary) Plan: * Treatment: 2. O thers Referral To:Physical Therapy [facility] [place] Physical Medicine and Rehabilitation Reason:evaluation and treatment -- see attached order * Procedure Codes: * * Sign off status: Completed Visit Status: C HK (Check Out) true * Provider: Dani Fernandez DPM, MS Date: 07/12/2024 Generated for Simon franks/Laura/Rashiitting on: 05/31/2025 08:17 AM EDT History and Physical Notes * Examination Category Sub-Category Detail Notes Category Not es Abdomen Exam: Left great toe is without signs of infection from prior nail avulsion and is healing appropriately. Minimal swelling and no erythema. No drainage. No pain on palpation. No signs of infection. Consultation Request Notes Referral Date Referring Provider Referred Provider Not es 07/12/2024 Torres Fernandez, ysical Therapy evaluation and treatment -- see attached order
--- OUTSIDE RECORDS SUMMARY | 2025-05-30 10:21 | XMS_ITS | Encounter Summary ---
Author Organization [facility] Address [address] [place] [id number] Phone Care Team Providers Care Assistant Women'S Tennis Coach Name Role Phone Charan Delgadillo DO Primary Care Provider [phone] Charan Delgadillo DO Primary Care Provider [phone] Rosalinda Cordova MD Unavailable [phone] Encounter Details Date Type Department Care Team (Late st Contact Info) Description 06/19/2020 Orders Only [facility] [address] [place] [address] Conversion, Onbase Social History Tobacco Use Types Packs/Day Years Used Date Smoking Tobacco: Never Assessed Comments Unknown Sex and Gender Information Value Date Recorded Sex Assigned at Not on file Legal Sex Female 10:20 AM EST Gender Identity Not on file Sexual Orientation Not on file documented as of this encounter Plan of Treatment Upcoming Encounters Date Type Department Care Team (Late st Contact Info) Description 11/03/2025 2:30 PM EST Office Visit [facility] [address] [address] Rosalinda Cordova MD [address] [facility] [address] [place] [address] Scheduled Orders Name Type Priority Associated Diagnoses Orde r Schedule OUTSIDE LAB SCAN Lab Ordered: 06/19/2020 documented as of this encounter Visit Diagnoses Not on filedocumented in this encounter Care Teams Assistant Women'S Tennis Coach Relationship Specialty Start Date End Date Charan Delgadillo DO PCP - General 07/09/20 02/21/24 Charan Delgadillo DO PCP - General Family Medicine 02/22/24 Rosalinda Cordova MD 703 [facility], [place] [address] Consulting Physician Cardiology 02/22/24 documented as of this encounter
--- OUTSIDE RECORDS SUMMARY | 2025-05-30 10:21 | XMS_ITS | Encounter Summary ---
Author Organization [facility] Address [address] [place] [address] Phone Care Team Providers Care Visual Presentation Manager Name Role Phone Charan Delgadillo DO Primary Care Provider [phone] Charan Delgadillo DO Primary Care Provider [phone] Rosalinda Cordova MD Unavailable [phone] Encounter Details Date Type Department Care Team (Late st Contact Info) Description 11/26/2023 Scanned Document [facility] [address] [place] [address] Scanning, Generic Provider Social History Tobacco Use Types Packs/Day Years [...] Office Visit [facility] 703 [facility] [address] [place] [address] Rosalinda Cordova MD 703 [facility], [address] [place] [address] documented as of this encounter Visit Diagnoses Not on filedocumented in this encounter Care Teams Visual Presentation Manager Relationship Specialty Start Date End Date Charan Delgadillo DO PCP - General 07/09/20 02/21/24 Charan Delgadillo DO PCP - General Family Medicine 02/22/24 Rosalinda Cordova MD 703 [facility], [place] [address] Consulting Physician Cardiology 02/22/24 documented as of this encounter
--- OUTSIDE RECORDS SUMMARY | 2025-05-30 10:21 | XMS_ITS | Encounter Summary ---
Author Organization [facility] Address [address] [place] [phone] Phone Care Team Providers Care Willow Machine Tender Name Role Phone Charan Delgadillo DO Primary Care Provider [phone] Charan Delgadillo DO Primary Care Provider [phone] Rosalinda Cordova MD Unavailable [phone] Encounter Details Date Type Department Care Team (Late st Contact Info) Description 04/17/[address] [facility] [address] [place] [address] Conversion, Onbase Social History Tobacco Use Types [...] Description 11/03/2025 2:30 PM EST Office Visit [facility] [address] [address] Rosalinda Cordova MD [address] [facility] [address], [address] [place] [address] Scheduled Orders Name Type Priority Associated Diagnoses Orde r Schedule OUTSIDE LAB SCAN Lab Ordered: 04/17/2020 documented as of this encounter Visit Diagnoses Not on filedocumented in this encounter Care Teams Willow Machine Tender Relationship Specialty Start Date End Date Charan Delgadillo DO PCP - General 07/09/20 02/21/24 Charan Delgadillo DO PCP - General Family Medicine 02/22/24 Rosalinda Cordova MD 703 [facility] 2, [place] [address] Consulting Physician Cardiology 02/22/24 documented as of this encounter
--- OUTSIDE RECORDS SUMMARY | 2025-05-30 10:22 | XMS_ITS | Encounter Summary ---
Author Organization [facility] Address [address] [place] [address] Phone Care Team Providers Care Artificial Marble Worker Name Role Phone Yeison Delgadilloan Dani BASSETT Primary Care Provider [phone] Rosalinda Cordova MD Unavailable [phone] Encounter Details Date Type Department Care Team (Late st Contact Info) Description 02/29/2024 Scanned Document [facility] [address] [place] [address] Scanning, Generic Provider Social History Tobacco Use Types Packs/Day Years Used Date Smoking Tobacco: Never Smokeless Tobacco: Never Alcohol Use Standard Drinks/Week Comments Never 0 (1 standard drink = 0.6 oz pur e alcohol) Comments Unknown Sex and Gender Information Value Date Recorded Sex Assigned at Not on file Legal Sex Female 10:20 AM EST Gender Identity Not on file Sexual Orientation Not on file COVID-19 Exposure Response Date Recorded In the last 10 days, have yo u been in contact with someone who was confirmed or suspected to have Coronavirus/COVID-19? No / Unsure 02/22/2024 2:00 PM EDT documented as of this encounter Plan of Treatment Upcoming Encounters Date Type Department Care Team (Late st Contact Info) Description 11/03/2025 2:30 PM EST Office Visit [facility] 703 [facility] [address] [place] [address] Rosalnida Cordova MD 703 [facility] [address] [place] [address] documented as of this encounter Visit Diagnoses Not on filedocumented in this encounter Additional Health Concerns Assessment Noted Time A fall risk assessment has been complete d for the patient 02/22/2024 2:26 PM EDT documented as of this encounter Care Teams Artificial Marble Worker Relationship Specialty Start Date End Date Charan Delgadillo DO PCP - General Family Medicine 02/22/24 Rosalinda Cordova MD 703 [facility], [place] [address] Consulting Physician Cardiology 02/22/24 documented as of this encounter
--- OUTSIDE RECORDS SUMMARY | 2025-05-30 10:22 | XMS_ITS | Encounter Summary ---
Author Organization [facility] Address [address] [place] [phone] Phone Care Team Providers Care Side Panel Hanger Name Role Phone Charan Delgadillo DO Primary Care Provider [phone] Charan Delgadillo DO Primary Care Provider [phone] Rosalinda Cordova MD Unavailable [phone] Encounter Details Date Type Department Care Team (Late st Contact Info) Description 03/25/2022 Orders Only [facility] [address] [place] [address] Conversion, Onbase Social History Tobacco Use Types [...] Description 11/03/2025 2:30 PM EST Office Visit [facility] [address] [address] Rosalinda Cordova MD 703 [facility], [address] [place] [address] Scheduled Orders Name Type Priority Associated Diagnoses Orde r Schedule OUTSIDE LAB SCAN Lab Ordered: 03/25/2022 OUTSIDE LAB SCAN Lab Ordered: 03/25/2022 OUTSIDE LAB SCAN Lab Ordered: 03/25/2022 documented as of this encounter Visit Diagnoses Not on filedocumented in this encounter Care Teams Side Panel Hanger Relationship Specialty Start Date End Date Charan Delgadillo DO PCP - General 07/09/20 02/21/24 Charan Delgadillo DO PCP - General Family Medicine 02/22/24 Rosalinda Cordova MD 3 [facility] 2, [address] [address] Consulting Physician Cardiology 02/22/24 documented as of this encounter
--- OUTSIDE RECORDS SUMMARY | 2025-05-30 10:22 | XMS_ITS | Clinical Summary ---
Author Organization [facility] Address [address] [place] [address] Phone Care Team Providers Care Acid Purifier Name Role Phone Charan Delgadillo DO Primary Care Provider [phone] Rosalinda Cordova MD Unavailable Allergies Active Allergy Reactions Criticality Noted Date Comments Erythromycin Base Nausea/vomiting 12/04/2023 Levofloxacin Nausea/vomiting High 02/22/2024 Head ache Medications allopurinol (Zyloprim) 100 mg tablet Take 1 tablet (100 mg) by mouth once daily. 2 Active ascorbic acid (Vitamin C) 1,000 mg tablet Take 1 tablet (1,000 mg) by mouth once daily. Active aspirin 81 mg EC tablet Take 1 tablet (81 mg) by mouth once daily. Active ergocalciferol (Vitamin D-2) 1.25 MG (71493 UT) capsule Take 1 capsule (50,000 Units) by mouth once daily. 1 Active insulin regular (HumuLIN R U-500, Conc, Insulin) 500 unit/mL CONCENTRATED injection Inject under the skin. Active metoprolol succinate XL (Toprol-XL) 200 mg 24 hr tablet Take 1 tablet (200 mg) by mouth once daily. Active omega-3 acid ethyl esters (Lovaza) 1 gram capsule Take 1 capsule (1 g) by mouth twice a day. Active olmesartan (Benicar) 40 mg tablet Take 1 tablet (40 mg) by mouth once daily. Active b complex vitamins (Vitamins B Complex) capsule Take 1 capsule by mouth once daily. Active insulin lispro (HumaLOG) 100 unit/mL injection Inject under the skin. Take as directed per insulin instructions. Active nitroglycerin (Nitrostat) 0.4 mg SL tabletIndications :Chest pain, unspecified DISSOLVE 1 TABLET UNDER THE TONGUE EVERY 5 MINUTES NEEDED FOR CHEST PAIN. DO NOT EXCEED A TOTAL OF 3 DOSES IN 15 MINUTES. GO TO THE ER IF PERSISITS. 90 tablet 1 4 Active pregabalin (Lyrica) 150 mg capsule Take 1 capsule (150 mg) by mouth once daily in the morning. Take before meals. 3 Active pregabalin (Lyrica) 300 mg capsule Take 1 capsule (300 mg) by mouth once daily at bedtime. 3 Active COQ10, UBIQUINOL, ORAL Take by mouth. Active traMADol ER, biphasic, (Ryzolt) 100 mg 24 hr tablet Take 1 tablet (100 mg) by mouth once daily. Do not crush, chew, or split. Active rosuvastatin (Crestor) 10 mg tabletIndications :Atherosclerotic heart disease of [place] coronary artery without angina pectoris Take 1 tablet (10 mg) by mouth 3 (three) times a week. 36 tablet 3 4 10/03/20 25 Active Active Problems Problem Noted Date Diagnosed Date Class 2 obesity with body ma ss index (BMI) of 37.0 to 37.9 in adult 02/22/2024 CAD (coronary artery disease) 12/04/2023 Elevated coronary artery calcium score 4 Diabetes mellitus (Multi) 12/04/2023 Essential hypertension 12/04/2023 Hyperlipidemia 12/04/2023 Obstructive sleep apnea syndrome 12/04/2023 Status post insertion of drug eluting coronary a rtery stent 12/04/2023 Immunizations Immunization Administration Dates Next Due Influenza, seasonal, injectable 10/16/2022 Moderna SARS-CoV-2 Vaccination 10/16/2022 Pneumococcal conjugate vaccine, 13-valent (PREVN AR 13) 12/02/2016 Pneumococcal polysaccharide vaccine, 23-valent, age 2 years and older (PNEUMOVAX 23) 11/30/2016,10/15/2016 Family History Medical History Relation Name Comments CABG Father Relation Name Status Comments Father Social History Tobacco Use Types Packs/Day Years Used Date Smoking Tobacco: Never Smokeless Tobacco: Never Tobacco Cessation:Counseling Given: Not Answered Alcohol Use Standard Drinks/Week Comments Never 0 (1 standard drink = 0.6 oz pur e alcohol) Comments Unknown Sex and Gender Information Value Date Recorded Sex Assigned at Not on file Legal Sex Female 10:20 AM EST Gender Identity Not on file Sexual Orientation Not on file Last Filed Vital Signs Vital Sign Reading Time Taken Comments Blood Pressure 130/80 08/25/2024 8:35 AM EDT Pulse 80 08/25/2024 8:35 AM EDT Temperature - - Respiratory Rate - - Oxygen Saturation - - Inhaled Oxygen Concentration - - Weight 109 kg (241 lb) 08/25/2024 8:35 AM EDT Height 170.2 cm (5' 7 ) 08/25/2024 8:35 AM EDT Body Mass Index 37.75 08/25/2024 8:35 AM EDT Plan of Treatment Upcoming Encounters Date Type Department Care Team (Late st Contact Info) Description 11/03/2025 2:30 PM EST Office Visit [facility] [address] [id number] Rosalinda Cordova MD 703 [facility], [address] [place] [address] Health Maintenance Due Date Last Done Comments CT Colonography 1960 Diabetes: Hemoglobin A1C 1960 Diabetes: Urine Protein Screening 1960 FIT-DNA (Cologuard) 1960 FIT 1960 HIV Screening 1960 Lipid Panel 1960 Sigmoidoscopy 1960 Welcome to Medicare Visit 1960 MMR Vaccines (1 of 1 - Standard series) 1961 Diabetes: Retinopathy Screening 1970 Hepatitis C Screening 1978 Cervical Cancer Screening 1981 HPV/Cotest 1981 Pap Smear 1981 Mammogram 2000 RSV High Risk: (Elderly (60+) or Population) (1 - Risk 60-74 years 1-dose series) 2020 Pneumococcal Vaccine (3 of 3 - PCV20 or PCV21) 12/02/2021 12/02/2016, 11/30/2016, 10/15/2016 DTaP/Tdap/Td Vaccines (2 - Td or Tdap) 09/08/2022 09/08/2012 COVID-19 Vaccine ( season) 2024 10/16/2022, 10/16/2022, 09/25/2021, Additional history exists Influenza Vaccine (Season Ended) 2025 10/16/2022, 08/30/2021, 08/30/2019, Additional history exists Colonoscopy 10/06/2033 10/06/2023 Colorectal Cancer Screening 10/06/2033 Zoster Vaccines Completed 01/27/2023, 10/28/2022 HIB Vaccines Aged Out No longer eligi ble based on patient's age to complete this topic HPV Vaccines (No Doses Required) Completed Hepatitis A Vaccines Aged Out No long er eligible based on patient's age to complete this topic Hepatitis B Vaccines Aged Out No long er eligible based on patient's age to complete this topic IPV Vaccines Aged Out No longer eligi ble based on patient's age to complete this topic Meningococcal Vaccine Aged Out No alma jayme eligible based on patient's age to complete this topic Rotavirus Vaccines Aged Out No longer eligible based on patient's age to complete this topic Insurance [facility] [employer] MEDICARE [employer] [place] MEDICARE [facility] [employer] MEDICARE [employer] [place] MEDICARE Member Subscriber Plan / Payer ( fective 2024-Present) Name:Joy Asher Relation to Subscriber:Self Name:Joy Asher Payer ID:Not on file Type:Not on file Address: [address] [place] [id number] Care Teams Acid Purifier Relationship Specialty Start Date End Date Charan Delgadillo DO PCP - General Family Medicine 02/22/24 Rosalinda Cordova MD 703 [facility] 2, [place] [id number] Consulting Physician Cardiology 02/22/24
--- OUTSIDE RECORDS SUMMARY | 2025-05-30 10:22 | XMS_ITS | Encounter Summary ---
Author Organization [facility] Address [address] [place] [id number] Phone Care Team Providers Care Customer Engagement Representative Name Role Phone Charan Delgadillo DO Primary Care Provider [phone] Charan Delgadillo DO Primary Care Provider [phone] Rosalinda Cordova MD Unavailable [phone] Encounter Details Date Type Department Care Team (Late st Contact Info) Description 08/13/2022 Orders Only [facility] [address] [place] [address] Conversion, Onbase Social History Tobacco Use Types [...] Description 11/03/2025 2:30 PM EST Office Visit [facility] 703 [facility] [address] [place] [address] Rosalinda Cordova MD 703 [facility], [address] [place] [address] Scheduled Orders Name Type Priority Associated Diagnoses Orde r Schedule OUTSIDE LAB SCAN Lab Ordered: 08/13/2022 documented as of this encounter Visit Diagnoses Not on filedocumented in this encounter Care Teams Customer Engagement Representative Relationship Specialty Start Date End Date Charan Delgadillo DO PCP - General 07/09/20 02/21/24 Charan Delgadillo DO PCP - General Family Medicine 02/22/24 Rosalinda Cordova MD 703 [facility], [place] [address] Consulting Physician Cardiology 02/22/24 documented as of this encounter
--- OUTSIDE RECORDS SUMMARY | 2025-05-30 10:22 | XMS_ITS | Encounter Summary ---
Author Organization [facility] Address [address] [place] [phone] Phone Care Team Providers Care Commercial Real Estate Attorney Name Role Phone Charan Delgadillo DO Primary Care Provider [phone] Charan Delgadillo DO Primary Care Provider [phone] Rosalinda Cordova MD Unavailable [phone] Encounter Details Date Type Department Care Team (Late st Contact Info) Description 11/19/2021 Orders Only [facility] [address] [place] [address] Conversion, Onbase Social History Tobacco Use Types [...] Description 11/03/2025 2:30 PM EST Office Visit [facility] 703 [facility] [address] [place] [address] Rosalinda Cordova MD 703 [facility], [address] [place] [address] Scheduled Orders Name Type Priority Associated Diagnoses Orde r Schedule OUTSIDE LAB SCAN Lab Ordered: 11/19/2021 documented as of this encounter Visit Diagnoses Not on filedocumented in this encounter Care Teams Commercial Real Estate Attorney Relationship Specialty Start Date End Date Charan Delgadillo DO PCP - General 07/09/20 02/21/24 Charan Delgadillo DO PCP - General Family Medicine 02/22/24 Rosalinda Cordova MD 703 [facility] 2, [place] [address] Consulting Physician Cardiology 02/22/24 documented as of this encounter
--- OUTSIDE RECORDS SUMMARY | 2025-05-30 10:22 | XMS_ITS | Encounter Summary ---
Author Organization [facility] Address [address] [place] [address] Phone Care Team Providers Care Navy Diver Name Role Phone Charan Delgadillo DO Primary Care Provider [phone] Charan Delgadillo DO Primary Care Provider [phone] Rosalnida Cordova MD Unavailable Encounter Details Date Type Department Care Team (Late Contact Info) Description 02/19/2022 Orders Only [facility] [address] [place] [address] Conversion, Onbase Social History Tobacco Use Types Packs/Day Years Used Date Smoking Tobacco: Never Assessed Comments Unknown Sex and Gender Information Value Date Recorded Sex Assigned at Not on file Legal Sex Female 10:20 AM EST Gender Identity Not on file Sexual Orientation Not on file documented as of this encounter Functional Status * Little interest or pleasure in doing things Answer Date of Assessment Author Not at all 02/20/2022 12:28 PM EDT Conversi on, [employer] Vit[employer] documented as of this encounter Plan of Treatment Upcoming Encounters Date Type Department Care Team (Late st Contact Info) Description 11/03/2025 2:30 PM EST Office Visit [facility] 703 [facility] [address] [place] [address] Rosalinda Cordova MD 703 [facility], [address] [place] [address] Scheduled Orders Name Type Priority Associated Diagnoses Orde r Schedule OUTSIDE LAB SCAN Lab Ordered: 02/19/2022 documented as of this encounter Visit Diagnoses Not on filedocumented in this encounter Care Teams Navy Diver Relationship Specialty Start Date End Date Charan Delgadillo DO PCP - General 07/09/20 02/21/24 Charan Delgadillo DO PCP - General Family Medicine 02/22/24 Rosalinda Cordova MD 703 [facility] 2, [place] [phone] Consulting Physician Cardiology 02/22/24 documented as of this encounter
--- OUTSIDE RECORDS SUMMARY | 2025-05-30 10:22 | XMS_ITS | Encounter Summary ---
Author Organization [facility] Address [address] [place] [phone] Phone Care Team Providers Care Economic Analyst Name Role Phone Charan Delgadillo DO Primary Care Provider [phone] Charan Delgadillo DO Primary Care Provider [phone] Rosalinda Cordova MD Unavailable [phone] Encounter Details Date Type Department Care Team (Late st Contact Info) Description 10/22/2021 Orders Only [facility] [address] [place] [address] Conversion, Onbase Social History Tobacco Use Types [...] Description 11/03/2025 2:30 PM EST Office Visit [facility] 703 [facility] 250 [place] [address] Rosalinda Cordova MD 703 [facility], [address] [place] [address] Scheduled Orders Name Type Priority Associated Diagnoses Orde r Schedule SLEEP STUDY ORDER - ONBASE SCAN Sleep Center Ordered: 021 documented as of this encounter Visit Diagnoses Not on filedocumented in this encounter Care Teams Economic Analyst Relationship Specialty Start Date End Date Charan Delgadillo DO PCP - General 07/09/20 02/21/24 Charan Delgadillo DO PCP - General Family Medicine 02/22/24 Rosalinda Cordova MD 703 [facility], [place] [address] Consulting Physician Cardiology 02/22/24 documented as of this encounter
--- OUTSIDE RECORDS SUMMARY | 2025-05-30 10:22 | XMS_ITS | Encounter Summary ---
Author Organization [facility] Address [address] [place] [phone] Phone Care Team Providers Care Financial Administrative Assistant Name Role Phone Charan Delgadillo DO Primary Care Provider [phone] Charan Delgadillo DO Primary Care Provider [phone] Rosalinda Cordova MD Unavailable [phone] Encounter Details Date Type Department Care Team (Late st Contact Info) Description 04/30/2022 Orders Only [facility] [address] [place] [address] Conversion, Onbase Social History Tobacco Use Types [...] Description 11/03/2025 2:30 PM EST Office Visit [facility] 703 [facility] 250 [place] [address] Rosalinda Cordova MD 703 [facility], [address] [place] [address] Scheduled Orders Name Type Priority Associated Diagnoses Orde r Schedule SLEEP STUDY ORDER - ONBASE SCAN Sleep Center Ordered: 022 documented as of this encounter Visit Diagnoses Not on filedocumented in this encounter Care Teams Financial Administrative Assistant Relationship Specialty Start Date End Date Charan Delgadillo DO PCP - General 07/09/20 02/21/24 Charan Delgadillo DO PCP - General Family Medicine 02/22/24 Rosalinda Cordova MD 703 [facility] 2, [place] [address] Consulting Physician Cardiology 02/22/24 documented as of this encounter
--- OUTSIDE RECORDS SUMMARY | 2025-05-30 10:22 | XMS_ITS | Encounter Summary ---
Author Organization [facility] Address [address] [place] [address] Phone Care Team Providers Care Survey Project Manager Name Role Phone Charan Delgadillo DO Primary Care Provider [phone] Charan Delgadillo DO Primary Care Provider [phone] Rosalinda Cordova MD Unavailable [phone] Encounter Details Date Type Department Care Team (Late st Contact Info) Description 12/30/2023 Scanned Document [facility] [place] [address] [place] [address] Scanning, Generic Provider Social History Tobacco Use [...] Description 11/03/2025 2:30 PM EST Office Visit [facility] 703 [facility] [address] [place] [address] Rosalinda Cordova MD 703 [facility], [address] [place] [address] documented as of this encounter Procedures Procedure Name Priority Date/Time Associated Diagnosis Comments OUTSIDE IMAGING SCAN 12/30/2023 documented in this encounter Results * OUTSIDE IMAGING SCAN (12/30/2023) Anatomical Region Laterality Modality Other Narrative 12/30/2023 Ordered by an unspecified provider. us Generic Provider Scanning OUTSIDE SCAN Final Result documented in this encounter Visit Diagnoses Not on filedocumented in this encounter Care Teams Survey Project Manager Relationship Specialty Start Date End Date Charan Delgadillo DO PCP - General 07/09/20 02/21/24 Charan Delgadillo DO PCP - General Family Medicine 02/22/24 Rosalinda Cordova MD 703 [facility] 2, [address] [address] Consulting Physician Cardiology 02/22/24 documented as of this encounter
--- OUTSIDE RECORDS SUMMARY | 2025-05-30 10:22 | XMS_ITS | Encounter Summary ---
Author Organization [facility] Address [address] [place] [address] Phone Care Team Providers Care Extract Puller Name Role Phone Yeison Delgadilloan Dnai BASSETT Primary Care Provider [phone] Rosalinda Cordova MD Unavailable [phone] Encounter Details Date Type Department Care Team (Late st Contact Info) Description 12/08/2024 Scanned Document [facility] [address] [place] [address] Scanning, Generic Provider Social History [...] Description 11/03/2025 2:30 PM EST Office Visit [facility] [address] [address] Rosalinda Cordova MD 703 [facility] 2, [address] [place] [address] documented as of this encounter Procedures Procedure Name Priority Date/Time Associated Diagnosis Comments OUTSIDE IMAGING SCAN 12/08/2024 documented in this encounter Results * OUTSIDE IMAGING SCAN (12/08/2024) Anatomical Region Laterality Modality Other Narrative 12/08/2024 Ordered by an unspecified provider. us Generic Provider Scanning OUTSIDE SCAN Final Result documented in this encounter Visit Diagnoses Not on filedocumented in this encounter Additional Health Concerns Assessment Noted Time A fall risk assessment has been complete d for the patient 02/22/2024 2:26 PM EDT documented as of this encounter Care Teams Extract Puller Relationship Specialty Start Date End Date Charan Delgadillo DO PCP - General Family Medicine 02/22/24 Rosalinda Cordova MD 703 [facility] 2, [place] [phone] Consulting Physician Cardiology 02/22/24 documented as of this encounter
--- OUTSIDE RECORDS SUMMARY | 2025-05-30 10:22 | XMS_ITS | Encounter Summary ---
Author Organization [facility] Address [address] [place] [phone] Phone Care Team Providers Care Lead Generation Marketing Manager Name Role Phone Charan Delgadillo DO Primary Care Provider [phone] Charan Delgadillo DO Primary Care Provider [phone] Rosalinda Cordova MD Unavailable [phone] Encounter Details Date Type Department Care Team (Late st Contact Info) Description 03/06/2023 Orders Only [facility] [address] [place] [address] Conversion, Onbase Social History Tobacco Use Types [...] Description 11/03/2025 2:30 PM EST Office Visit [facility] 703 [facility] 250 [place] [address] Rosalinda Cordova MD 703 [facility], [address] [place] [address] Scheduled Orders Name Type Priority Associated Diagnoses Orde r Schedule OUTSIDE LAB SCAN Lab Ordered: 03/06/2023 documented as of this encounter Visit Diagnoses Not on filedocumented in this encounter Care Teams Lead Generation Marketing Manager Relationship Specialty Start Date End Date Charan Delgadillo DO PCP - General 07/09/20 02/21/24 Charan Delgadillo DO PCP - General Family Medicine 02/22/24 Rosalinda Cordova MD 703 [facility] 2, [place] [address] Consulting Physician Cardiology 02/22/24 documented as of this encounter
--- OUTSIDE RECORDS SUMMARY | 2025-05-31 04:49 | XMS_ITS | Continuity of Care Document ---
Author Organization [facility] Address [address] [place] [address] Phone Care Team Providers Care Herbarium Curator Name Role Phone Leona Charan BASSETT Primary Care Provider Charan Delgadillo DO Attending Provider [phone] Blas Ortiz MD Attending Provider Care Teams Patient Care Team Team Status: Active Member Role Status Dates Mendy Lopez LPN Care Manager Active Blas Ortiz MD Specialist Active Shaina Figueroa DO Specialist Active Trores Fernandez DPM MS Specialist Active Rosalinda Cordova MD Specialist Active Charan Delgadillo DO Primary Care Provider Active Visit Care Team Team Status: Inactive Member Role Status Dates Charan Delgadillo DO Primary Care Provider Active Sta rt: March 06, 2025 End: March 06, 2025 Charan Delgadillo DO Attending Provider Active Start: March 06, 2025 End: March 06, 2025 Patient Care Team Team Status: Inactive Member Role Status Josafat Delgadillo DO Primary Care Provider Active Sta rt: May 31, 2025 End: May 31, 2025 Blas Oritz MD Attending Provider Active Sta rt: May 31, 2025 End: May 31, 2025 Chief Complaint and Reason for Visit Chief Complaint Admit Date 2 month f/u March 06, 2025 7:41 am 3 MONTHS May 31, 2025 8:03a m Reason for Visit Admit Date CKD (chronic kidney disease) stage 2, GF R 60-89 ml/min March 06, 2025 7:41am Constipation March 06, 2025 7:41 am Diabetic neuropathy March 06, 2025 7:41 am Family history of dementia March 06 7:41am Rotator cuff syndrome of right shoulder March 06, 2025 7:41am Spondylolisthesis, lumbar region March 062024 7:41am Chronic pain May 31, 2025 8:03a m Osteoarthritis of spine with radiculopat hy, lumbar region May 31, 2025 8:03am Other low back pain May 31, 2025 8:03a m Trochanteric bursitis May 31, 2025 8:0 3am Allergies, Adverse Reactions, Alerts Allergen Type Severity Reaction Last Updated Verified Status erythromycin base Allergy Unknown Abdominal Pain, nausea May 31, 2025 8:31am Yes Active levofloxacin Allergy Unknown hypoglycemia May 31, 2025 8:31am Yes Active arzithomycin Allergy Unknown stomach upset December 31, 2023 9:11am No Active Social History Smoking Status Status Start Date End Date Date of Observa tion Never smoked tobacco (finding) January 18, 2025 8:31am Observation Status Observation Response Date of Response Legal Sex Female (finding) Sex Assigned At Female November [id number] Family History Relationship Condition Age at Onset Recorded Date/T vero grandparent Diabetes mellitus Unknown Unknown grandparent Diabetes mellitus Unknown Unknown sibling Diabetes mellitus Unknown father Dementia Unknown Diabetes mellitus Unknown Heart disease Unknown Malignant neoplasm Unknown Hypertension Unknown History of replaceme nt of both shoulder joints Unknown Presence of cardiac pacemaker Unknown mother Hypertension Unknown History of joint replacement Unknown History of spinal fusion Unknown Asthma Unknown Heart disease Unknown brother Diabetes mellitus Unknown Hypertension Unknown History of joint replacement Unknown brother Hypertension Unknown Psoriasis Unknown History of joint replacement Unknown paternal grandfather Dementia Unknown Diabetes mellitus Unknown Unknown Problems Active Problems Medical Problem Onset Date Status LEWIS (acute kidney injury) Unknown Active Right upper quadrant pain Unknown Active High risk medication use Unknown Active Traumatic partial tear of biceps tendon Unknown Active Acute neck pain Unknown Active Cervical spondylosis without myelopathy Unknown Active Other low back pain Unknown Active Abnormal findings on diagnostic imaging of cardi ovascular system Unknown Active Insomnia Unknown Active Obstructive apnea Unknown Active residential current use of insulin Unknown Active 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 Unknown Active Primary osteoarthritis, right hand Unknown Active Primary osteoarthritis, left hand Unknown Active Rotator cuff syndrome of right shoulder Unknown Active Inflammation of sacroiliac joint Unknown Active H/O hypercalcemia Unknown Active Spondylolisthesis, lumbar region Unknown Active Diabetic neuropathy Unknown Active Group A streptococcal infection Unknown Active Parathyroid disease Unknown Active Burn of foot Unknown Active Toxic shock syndrome (TSS) Unknown Activ e Necrotizing fasciitis Unknown Active Partial tear of right rotator cuff Unknown Active Joint pain Unknown Active Diabetes mellitus Unknown Active Gout Unknown Active Chronic pain Unknown Active Necrotizing fasciitis due to Streptococcus pyoge xiao Unknown Active CKD (chronic kidney disease) stage 2, GFR 60-89 ml/min Unknown Active Closed fracture of toe Unknown Active CKD (chronic kidney disease) stage 3, GFR 30-59 ml/min Unknown Active Anemia Unknown Active Charcot's joint of left foot Unknown Act jenna Chronic ulcer of left ankle with fat layer expos ed Unknown Active Hypertensive chronic kidney disease with stage 1 through stage 4 chronic kidney disease, or unspecified chronic kidney disease Unknown Active Cough Unknown Active Arthrosis of right acromioclavicular joint Unkno wn Active Osteoarthritis of spine with radiculopathy, lumb ar region Unknown Active Hyperlipidemia Unknown Active Hyperparathyroidism Unknown Active Hyperuricemia Unknown Active Hyponatremia Unknown Active Nephrolithiasis Unknown Active Trochanteric bursitis Unknown Active Pancreatitis Unknown Active Severe sepsis Unknown Active Tachygastria Unknown Active Degenerative disc disease, cervical Unknown Active DDD (degenerative disc disease), lumbar Unknown Active Thrombocytopenia Unknown Active Essential hypertension Unknown Active Intractable vomiting with nausea Unknown Active Abnormal urinalysis Unknown Active Family history of dementia Unknown Activ e Positive colorectal cancer screening using Colog uard test Unknown Active Type 2 diabetes mellitus wit h hyperglycemia, with long-term current use of insulin Unknown Active Charcot's joint of foot Unknown Active Chronic renal insufficiency Unknown Acti ve Right shoulder pain Unknown Active MSSA (methicillin susceptible Staphylococcus aur eus) infection Unknown Active Diabetic ulcer of ankle asso ciated with diabetes mellitus due to underlying condition Unknown Active Pain in left ankle and joints of left foot Unkno wn Active Cervical pain Unknown Active GERD (gastroesophageal reflux disease) Unknown Active Anemia of renal disease Unknown Active Sacroiliitis, not elsewhere classified Unknown Active Nausea and vomiting Unknown Active Abdominal pain Unknown Active Abdominal pain Unknown Active Lumbar muscle pain Unknown Active HTN (hypertension) Unknown Active Hypertension Unknown Active Constipation Unknown Active Vitamin D deficiency Unknown Active ASHD (arteriosclerotic heart disease) Unknown Active Diabetic Charcot foot Unknown Active Lumbar stenosis with neurogenic claudication Unk nown Active Lumbar stenosis with neurogenic claudication Unk nown Active Hypomagnesemia Unknown Active Inactive/Resolved Problems Medical Problem Onset Date Status Septic shock Unknown Resolved Metabolic acidosis Unknown Resolved Medications Medication Status Dose Units Route Directions Qty Days St art Date Stop Date End Date Instructions Adherence Pregabalin (Lyrica) 150 mg capsule Discont inued 150 MG PO Daily 90 February 12, 2024 5:42pm May 20, 2024 12:05 pm Pregabalin (Lyrica) 300 mg capsule Discont inued 300 MG PO Daily at bedtime February 12, 2024 5:45pm February 12, 2024 5:47p m Pregabalin (Lyrica) 300 mg capsule Discont inued 300 MG PO Daily at bedtime February 12, 2024 5:46pm May 20, 2024 12:05 pm Metoprolol Succinate 200 mg tablet extended release 24 hr Active 200 MG PO Daily at bedtime February 18, 2024 10:08a m Complies with drug therapy Allopurinol 100 mg tablet Discont inued 100 MG PO Every morning February 18, 2024 10:08a m February 28, 2025 11:06 am [place]-3 Acid Ethyl Esters (Lovaza) 1 gram capsule Discont inued 2 CAP PO Twice daily 360 March 23, 2024 3:07pm Octob 2023 11:59 am Tramadol 50 mg tablet Discont inued 50 MG PO Twice daily as needed for pain 60 30 April 27, 2024 11:43a m June 13, 2024 11:33 am Pregabalin (Lyrica) 150 mg capsule Discont inued 150 MG PO Daily 90 May 20, 2024 12:04p m [facility] 2023 12:18 pm Pregabalin (Lyrica) 300 mg capsule Discont inued 300 MG PO Daily at bedtime May 20, 2024 12:04p m [facility] 2023 12:18 pm Pregabalin (Lyrica) 150 mg capsule Discont inued 150 MG PO Daily 90 90 2023 12:17p m Febru cory 2024 11:33 am Pregabalin (Lyrica) 300 mg capsule Discont inued 300 MG PO Daily at bedtime 90 Septem johny 2023 12:18p m Septe mber 2023 12:22 pm Pregabalin (Lyrica) 300 mg capsule Discont inued 300 MG PO Daily at bedtime 90 90 Septem johny 2023 12:22p m Septe mber 2023 3:29p m Pregabalin (Lyrica) 300 mg capsule Discont inued 300 MG PO Daily at bedtime 90 90 Septem johny 2023 3:29pm Febru [email or web address] 11:32 am Pen Needle, Diabetic (Ulticare Pen Needle) 31 gauge x 3/16 needle Active EACH .ROUTE .MEDSUPPLY 100 Octobe r 2023 1:49pm As directed Blood-Gluco se Sensor (Dexcom G7 Sensor) device Active 0 .Route 1 Octobe r 2023 12:00a m As directed Pen Needle, Diabetic 31 gauge x 5/16 needle Discont inued 0 .Route 100 Octobe r 2023 12:00a m Octob er 2023 1:53p m As directed Pen Needle, Diabetic 31 gauge x 5/16 needle Active 0 .Route 100 Octobe r 2023 1:53pm As directed [place]-3 Acid Ethyl Esters (Lovaza) 1 gram capsule Discont inued 2 CAP PO Twice daily 360 90 Octobe r 2023 11:59a m April 11, 2025 4:11p m Olmesartan 40 mg tablet Discont inued 40 MG PO Daily 90 Novemb er 2023 12:15p m April 11, 2025 4:11p m Doxycycline Hyclate 100 mg tablet Discont inued 100 MG PO Twice daily 20 Decemb er 2023 1:00am Janua ry 2024 11:38 am Benzonatate 200 mg capsule Discont inued 200 MG PO Three times daily as needed for cough 30 Decemb er 2023 1:00am Febru [email or web address] 10:59 am Amoxicillin -Pot Clavulanate 875-125 mg tablet Discont inued 1 TAB PO Twice daily 20 10 Novuar y 2024 1:00am Febru [email or web address] 10:59 am Allopurinol 100 mg tablet Active 100 MG PO Every morning February 28, 2025 11:06a m Complies with drug therapy Tramadol 50 mg tablet Discont inued 50 MG PO Twice daily as needed for pain 60 March 20, 2025 11:13a m May 31, 2025 8:42a m Olmesartan 40 mg tablet Active 40 MG PO Daily April 11, 2025 4:11pm Complies with drug therapy [place]-3 Acid Ethyl Esters (Lovaza) 1 gram capsule Active 2 CAP PO Twice daily 360 April 11, 2025 4:11pm Complies with drug therapy Metoprolol Succinate 200 mg Tablet Extended Release 24 Hr Discont inued 200 MG PO Daily at bedtime 2017 1:00am February 17, 2024 4:00p m Amitriptyli ne 25 mg Tablet Discont inued 25 MG PO Bedtime 2017 1:00am 2017 3:03p m Metformin 1,000 mg Tablet Discont inued 1000 MG PO Twice daily 2017 1:00am 2017 5:58p m Esomeprazol e Magnesium (Nexium) 40 mg Capsule,Del ayed Release(Dr/ Ec) Discont inued 40 MG PO Daily 2017 1:00am 2017 1:34a m Insulin Regular Human (Humulin R U-100) 100 unit/mL Solution Discont inued 100 UNITS SUBCUT Daily before breakfast 2017 1:00am 2017 3:53p m Insulin Regular Human (Humulin R U-100) 100 unit/mL Solution Discont inued 80 UNITS SUBCUT Daily before supper 2017 1:00am 2017 3:53p m Lovastatin 20 mg Tablet Discont inued 20 MG PO Daily 2017 1:00am 2017 3:03p m Lisinopril 40 mg Tablet Discont inued 40 MG PO Daily 2017 1:00am 2017 3:03p m [place]-3 Acid Ethyl Esters (Lovaza) 1 gram Capsule Discont inued 2 CAP PO Twice daily 2017 1:00am 2017 3:03p m Pregabalin (Lyrica) 300 mg Capsule Discont inued 300 MG PO Twice daily 2017 1:002017 3:03p m Insulin Regular Hum U-500 Conc (Humulin R U-500 (Concentrat ed)) 500 unit/mL Solution Discont inued 100 UNITS SUBCUT Daily with breakfast 2017 1:00am 2017 3:07p m Insulin Regular Hum U-500 Conc (Humulin R U-500 (Concentrat ed)) 500 unit/mL Solution Discont inued 80 UNITS SUBCUT Daily with supper 2017 1:00am 2017 6:08p m Insulin Regular Hum U-500 Conc (Humulin R U-500 (Conc) Insulin) 500 unit/mL Solution Discont inued 80 UNIT SUBCUT Daily with supper 0 2017 6:07pm 2017 1:34a m Oxycodone-A cetaminophe n 5-325 mg Tablet Discont inued 1 TAB PO Q4H as needed for Pain 10 5 2017 1:00am 2017 1:34a m Nifedipine 60 mg Tablet Extended Release 24hr Discont inued 60 MG PO Daily 30 30 2017 1:00am June 15, 2019 1:49p m Clindamycin Hcl 150 mg Capsule Discont inued 450 MG PO Three times daily 21 7 2017 1:00am 2017 1:33a m Insulin Regular Hum U-500 Conc (Humulin R U-500 (Conc) Insulin) 500 unit/mL Solution Discont inued 100 UNIT SUBCUT Daily with breakfast 0 2017 3:07pm 2017 1:34a m Sodium Bicarbonate 325 mg Tablet Discont inued 325 MG PO Twice daily 2017 1:00February 11, 2018 11:16 am Insulin Regular Hum U-500 Conc (Humulin R U-500 (Conc) Insulin) 500 unit/mL solution Discont inued 90 UNIT SUBCUT Daily with supper 2017 1:34am 2017 8:54a m Insulin Regular Hum U-500 Conc (Humulin R U-500 (Conc) Insulin) 500 unit/mL solution Discont inued 90 UNIT SUBCUT Daily with breakfast 2017 1:34am 2017 8:54a m Hydrocodone -Acetaminop hen ([place]) 5-325 mg tablet Discont inued 1 TAB PO Q6H as needed for pain 7 2017February 17, 2018 3:07p m Ondansetron (Zofran Odt) 4 mg tablet,disi ntegrating Discont inued 4 MG PO Q8H as needed for nausea 14 2017 1:00am June 15, 2019 1:50p m Magnesium Glycinate 100 mg Tablet Discont inued 600 MG PO Daily at bedtime 2017 1:00am February 11, 2018 11:15 am Insulin Regular Hum U-500 Conc (Humulin R U-500 (Conc) Kwikpen) 500 unit/mL (3 mL) Insulin Pen Discont inued 0 .ROUTE .COMPLEX Protocol: For use with Humulin 500 Kwik Pen-Use for patients using less than 300 total units a day-Adminis ter 30 minutes prior to the meal whenever possible -If the patient is NPO give 50% of scheduled dose -If patient does not eat all carbs, give balance of carbs within 2 hour post prandial -Do not hold any dose without notifying provider1. A hospital pharmacist will send to the floor the U-500 Regular Concentrate d Insulin KwikPen for administrat ion.2.High- alert medication labeling will be attached to the outside of the pharmacy delivery bag and labeling on the pen will include actual U-500 units and for subcutaneou s administrat ion only. Pharmacy will also include the T his patient is receiving concentrate d regular insulin U-500 information al sheet for verificatio n of U-500 dose.3.Inde pendent documented double checks are required at administrat ion. Barcode scanning to verify the correct dose must be used in all cases. Only RNs may administer U-500 insulin. LPNs may facilitate completion of the independent double checkverifi cation at administrat ion.4.Patie nts treated with U-500 insulin should have frequent (at least four times a day) capillary or venous blood glucose measurement s before each dose is given. 5.Handoff communicati ons should also take place among nursing staff upon patient transfer or shift transfer if applicable6 . If an order for U-500 insulin is discontinue d or the patient is discharged, the nurse will immediately remove the pen from the locked drawer and properly dispose of the pen. If the pen has not been used, the pen should be returned to the pharmacyfor credit. Condition: Blood Glucose Level (mg/dL) Dose/Route: Acutal Unit Dose with Humulin U500 Kwik Pen Condition: 149 mg and under Dose/Route: 0 units Condition: 150 mg - 199 mg Dose/Route: 5 units Condition: 200 mg - 249 mg Dose/Route: 10 units Condition: 250 mg - 299 mg Dose/Route: 15 units Condition: 300 mg - 349 mg Dose/Route: 20 units Condition: 350 mg - 399 mg Dose/Route: 25 units Condition: 400 mg - 449 mg notify provider Dose/Route: 30 units Condition: 450 mg and up. notify provider Dose/Route: 35 units 2017 1:00am February 11, 2018 11:17 am Check glucose ac, hs. Use corrective scale ac tid. Use hs if glucose >225. Please contact the information source for Protocol details. Insulin Regular Hum U-500 Conc (Humulin R U-500 (Conc) Insulin) 500 unit/mL solution Discont inued 90 UNIT SUBCUT Daily with supper 0 2017 8:54am February 11, 2018 11:16 am If eating <50% of your meal only take 45 units of U500 Insulin Regular Hum U-500 Conc (Humulin R U-500 (Conc) Insulin) 500 unit/mL solution Discont inued 90 UNIT SUBCUT Daily with breakfast 0 2017 8:54am February 11, 2018 11:16 am If eating <50% of your meal only take 45 units of U500 Pregabalin (Lyrica) 75 mg Capsule Discont inued 75 MG PO Twice daily Febr2017 1:00am February 11, 2018 11:16 am Hydrocodone -Acetaminop hen ([place]) 5-325 mg tablet Discont inued 1 TAB PO Twice daily as needed for Pain June 19, 2020 12:00a m Augus t 2019 8:14a m Allopurinol 100 mg Tablet Discont inued 100 MG PO Every morning June 15, 2020 12:00a m February 17, 2024 4:00p m Ergocalcife rol (Vitamin D2) 1,250 mcg (50,000 unit) Capsule Discont inued 1250 MCG PO every week June 15, 2020 12:00a m March 01, 2024 9:34a m thursday Pregabalin 75 mg capsule Discont inued 150 MG PO Every morning April 01, 2021 12:00a m February 12, 2024 12:25 pm Tramadol 50 mg tablet Discont inued 50 MG PO Daily as needed for Pain April 01, 2021 12:00a m Octob er 2022 7:18a m Cephalexin 500 mg capsule Discont inued 500 MG PO Q6H 26 06July 27, 2022 12:00a m Octob er 2022 7:16a m Tizanidine 4 mg tablet Discont inued 4 MG PO Three times daily as needed for Pain Octobe r 2022 12:00a m February 04, 2024 11:18 am Naproxen 250 mg Tablet Discont inued 250 MG PO Twice daily as needed for Pain Octobe r 2022 12:00a m February 12, 2024 12:29 pm Insulin Regular Hum U-500 Conc (Humulin R U-500 (Conc) Insulin) 500 unit/mL solution Discont inued 80 UNIT SUBCUT Daily with breakfast February 11, 2018 11:16a m February 12, 2024 12:28 pm Patient varies dosage depending on dietary intake Insulin Regular Hum U-500 Conc (Humulin R U-500 (Conc) Insulin) 500 unit/mL solution Discont inued 40 UNIT SUBCUT Daily with supper February 11, 2018 11:16a m February 12, 2024 12:29 pm Pt. varies dosage according to dietary intake. Hydrocodone -Acetaminop hen ([place]) 5-325 mg tablet Discont inued 2 TAB PO Q6H as needed for pain 45 February 17, 2018 June 15, 2019 1:47p m 1-2 tabs every 6 hours as needed for pain Insulin Lispro (Humalog U-100 Insulin) 100 unit/mL Cartridge Discont inued 5 UNIT SUBCUT Every morning June 15, 2019 12:00a m Augus 2019 1:10p m Tramadol 50 mg Tablet Discont inued 50 MG PO Four times daily as needed for neuropathy pain June 15, 2019 12:00a m Augus 2019 5:02p m Vitamin B Complex Tablet Active 1 TAB PO Every morning June 15, 2019 12:00a m Complies with drug therapy Furosemide (Lasix) 20 mg Tablet Discont inued 20 MG PO Every morning June 15, 2019 12:00a m Febru cory 2019 10:26 am [place]-3 Acid Ethyl Esters (Lovaza) 1 gram Capsule Discont inued 2 CAP PO Twice daily June 15, 2019 12:00a m March 23, 2024 3:09p m Tizanidine (Zanaflex) 2 mg Capsule Discont inued 2 MG PO Q8H as needed for Pain June 15, 2019 12:00a m Augus 2019 5:01p m Pregabalin (Lyrica) 300 mg Capsule Discont inued 300 MG PO Daily at bedtime June 15, 2019 12:00a m February 12, 2024 12:35 pm Magnesium Citrate 100 mg Tablet Discont inued 600 MG PO Daily June 15, 2019 12:00a m June 17, 2019 6:50a m Olmesartan (Benicar) 20 mg Tablet Discont inued 20 MG PO Every morning June 17, 2019 12:00a m March 25, 2022 10:17 am Magnesium Glycinate 100 mg Tablet Active 600 MG PO Daily at bedtime June 17, 2019 12:00a m Complies with drug therapy Insulin Lispro (Humalog Kwikpen Insulin) 100 unit/mL Insulin Pen Discont inued 5 UNIT SUBCUT Daily with breakfast July 25, 2020 12:00a m February 23, 2024 5:05p m Cyclobenzap rine 10 mg tablet Discont inued 10 MG PO Three times daily as needed for back spasms 50 July 27, 2020 12:00a m February 04, 2024 11:18 am Prednisone 10 mg tablets,dos e pack Discont inued 1 dose pk PO per package directions 30 July 27, 2020 12:00a m April 01, 2021 1:04p m take 4 tabs for 3 days then take 3 tabs for 3 days then take 2 tabs for 3 days then take 1 tab for 3 days Cephalexin (Keflex) 500 mg capsule Discont inued 500 MG PO Q8H July 27, 2020 12:00a m April 01, 2021 1:03p m Oxycodone 5 mg capsule Discont inued 5 - 10 MG PO Q6H as needed for pain 60 8 July 27, 2020 April 01, 2021 1:04p m Insulin Lispro (Humalog Kwikpen Insulin) 100 unit/mL Insulin Pen Discont inued 5 - 7 UNIT SUBCUT Daily with supper March 25, 2022 12:00a m February 23, 2024 5:08p m Olmesartan 20 mg tablet Discont inued 40 MG PO Every morning March 25, 2022 12:00a m April 19, 2024 9:00a m Aspirin 81 mg Tablet,Elba yed Release (Dr/Ec) Active 81 MG PO Every morning March 25, 2022 12:00a m Complies with drug therapy Nitroglycer in 0.4 mg tablet, sublingual Active 0.4 MG BUCCAL As Directed as needed for Chest Pain March 25, 2022 12:00a m Complies with drug therapy Ticagrelor (Brilinta) 90 mg tablet Discont inued 90 MG PO Twice daily 180 March 27, 2022 12:00a m Octob er 2022 7:17a m Insulin Lispro (Humalog Kwikpen Insulin) 100 unit/mL insulin pen Discont inued 5 - 6 UNIT SUBCUT Twice daily February 23, 2024 5:04pm February 16, 2025 9:40a m once a day in the morning and PRN QHS Insulin Lispro (Humalog Kwikpen Insulin) 100 unit/mL insulin pen Active 8 - 12 UNIT SUBCUT Twice daily February 16, 2025 9:38am 8 units AM 12 units in the Afternoon and 12 units in the evening Complies with drug therapy Tizanidine 4 mg tablet Discont inued 4 MG PO Twice daily as needed for Pain 60 February 04, 2024 11:17a m Octob er 2023 8:37a m Insulin Regular Hum U-500 Conc (Humulin R U-500 (Conc) Kwikpen) 500 unit/mL (3 mL) insulin pen Discont inued 0 SUBCUT As Directed February 23, 2024 12:00a m February 23, 2024 5:10p m 60 units in the morning and 30 units in the evening subcutaneousl y as directed; Insulin Regular Hum U-500 Conc (Humulin R U-500 (Conc) Kwikpen) 500 unit/mL (3 mL) insulin pen Discont inued 0 SUBCUT As Directed February 23, 2024 5:09pm March 01, 2024 9:42a m 60 units in the morning and 30 units in the evening subcutaneousl y as directed; Pen Needle, Diabetic (Ulticare Pen Needle) 31 gauge x 3/16 needle Discont inued EACH .ROUTE .MEDSUPPLY 1200 May 13, 2024 12:00a m May 13, 2024 10:02 am As directed Pen Needle, Diabetic (Ulticare Pen Needle) 31 gauge x 3/16 needle Discont inued EACH .ROUTE .MEDSUPPLY 100 May 13, 2024 10:02a m Octob er 2023 1:52p m As directed Tramadol 50 mg tablet Discont inued 50 MG PO Twice daily as needed for pain 60 June 13, 2024 11:32a m February 16, 2025 10:17 am Budesonide- Glycopyr-Fo rmoterol (Breztri Aerosphere) 160-9-4.8 mcg/actuati on HFA aerosol inhaler Discont inued 2 INH INHALA TION Twice daily 5.9 Novuar y 2024 1:00am Febru cory 2024 10:59 am SAMPLE PROVIDED Tramadol 50 mg tablet Active 50 MG PO Twice daily as needed for pain 60 May 31, 2025 8:42am Complies with drug therapy Cholecalcif jenifer (Vitamin D3) 50 mcg (2,000 unit) capsule Active 50 MCG PO Daily March 01, 2024 12:00a m Complies with drug therapy Insulin Regular Hum U-500 Conc (Humulin R U-500 (Conc) [place]) 500 unit/mL (3 mL) insulin pen Discont inued 55 UNIT SUBCUT Twice daily March 01, 2024 9:35am February 16, 2025 9:37a m Coenzyme Q10 300 mg capsule Active 300 MG PO Daily March 01, 2024 12:00a m Complies with drug therapy Pregabalin (Lyrica) 150 mg capsule Discont inued 150 MG PO Daily February 12, 2024 12:00a m February 12, 2024 12:35 pm Tramadol 50 mg tablet Discont inued 50 MG PO Twice daily February 12, 2024 12:00a m March 01, 2024 9:42a m Rosuvastati n 10 mg tablet Discont inued 10 MG PO February 12, 2024 12:00a m March 01, 2024 9:42a m Pregabalin (Lyrica) 150 mg capsule Discont inued 150 MG PO Daily February 12, 2024 12:34p m February 12, 2024 5:43p m Pregabalin (Lyrica) 300 mg capsule Discont inued 300 MG PO Daily at bedtime February 12, 2024 12:35p m February 12, 2024 5:46p m Rosuvastati n 10 mg tablet Active 10 MG PO .COMPLEX March 01, 2024 9:38am 10 mg orally Mon, Wed, Thu; Complies with drug therapy Tramadol 50 mg tablet Discont inued 50 MG PO Twice daily as needed March 01, 2024 9:39am April 27, 2024 11:44 am Allopurinol 100 mg tablet Discont inued 100 MG PO Every morning February 17, 2024 3:58pm February 18, 2024 10:09 am Metoprolol Succinate 200 mg tablet extended release 24 hr Discont inued 200 MG PO Daily at bedtime February 17, 2024 4:00pm February 18, 2024 10:09 am Olmesartan 40 mg tablet Discont inued 40 MG PO Daily April 19, 2024 12:00a m [facility] 2023 12:16 pm Tizanidine 4 mg tablet Active 4 MG PO Twice daily as needed for Pain 60 30 Oct2023 8:37am Complies with drug therapy Pregabalin (Lyrica) 150 mg capsule Discont inued 150 MG PO Twice daily 180 90 Februa 2024 11:32a m Febru cory 2024 11:35 am Pregabalin (Lyrica) 150 mg capsule Active 150 MG PO Twice daily 180 90 Februa 2024 11:34a m Complies with drug therapy Insulin Degludec 200 unit/mL (3 mL) insulin pen Discont inued UNIT SUBCUT February 16, 2025 12:00a m March 06, 2025 8:16a m Tramadol 50 mg tablet Discont inued 50 MG PO Twice daily as needed for pain 60 February 16, 2025 10:17a m March 20, 2025 11:15 am Insulin Degludec 200 unit/mL (3 mL) insulin pen Active 60 UNIT SUBCUT Daily March 06, 2025 8:13am Complies with drug therapy Immunizations Immunization Event Date Not Given Reason Dose Number Receiving Specialist Lot Number Vaccine Information Statement (VIS) Detail Administration Location COVID-19 mRNA-1273 (Moderna) November 28, 2020 [id number] [facility] COVID-19 mRNA-1273 (Moderna) December 25, 2020 [id number] [facility] COVID-19 mRNA-1273 (Moderna) September 26, 2021 [id number] Covid Vaccine COVID-19 mRNA Bivalent Booster (Moderna) October 16, 2022 Fluzone TIV High-Dose 65YR+ October 16, 2022 Influenza, Seasonal, Intradermal, pf August 30, 2021 Influenza, seasonal, injectable, pf December 02, 2016 influenza, unspecified formulation September 08, 2012 influenza, unspecified formulation December 02, 2016 influenza, unspecified formulation October 16, 2022 Pneumococcal Conjugate Vaccine, 13 valent December 02, 2016 Pneumococcal Polysacc. Vaccine, 23 valent October 15, 2016 Zoster Vaccine Recombinant, Adjuvanted October 28, 2022 Zoster Vaccine Recombinant, Adjuvanted January 27, 2023 Tetanus, Diphtheria, Pertussis (Tdap) September 08, 2012 Trivalent Influenza Vaccine August 30, 2018 Trivalent Influenza Vaccine August 30, 2019 Medical Equipment Device Date Implanted Device Details Drug-eluting coronary artery stent, [id number]-coated March 27, 2022 SILAS: [id number] Issuing Agency: [facility] Device Id: [id number] Lot Number: [id number] Femoral artery closure plug/patch, synthetic polymer March 27, 2022 SILAS: [id number] Issuing Agency: [facility] Device Id: [id number] LATERAL STD 1 LEVEL CONSTRUCT July 25, 2020 STRATOFUSE DBM 10CC July 25, 2020 TIMBERLINE INTERBODY July 25, 2020 Spinal fusion graft kit July 25, 2020 SILAS: [id number] Issuing Agency: [facility] Device Id: [id number] Expiration Date: 2020-12-30 Lot Number: [id number] Bone-screw internal spinal fixation system, non-sterile July 25, 2020 SILAS: [id number] Issuing Agency: [facility] Device Id: [id number] Bone-screw internal spinal fixation system, non-sterile July 25, 2020 SILAS: [id number] Issuing Agency: [facility] Device Id: [id number] Bone-screw internal spinal fixation system, non-sterile July 25, 2020 SILAS: [id number] Issuing Agency: [facility] Device Id: [id number] Bone-screw internal spinal fixation system, non-sterile July 25, 2020 SILAS: [id number] Issuing Agency: [facility] Device Id: [id number] Orthopaedic bone screw, non-bioabsorbable, non-sterile July 25, 2020 SILAS: [id number] Issuing Agency: [facility] Device Id: [id number] Orthopaedic bone screw, non-bioabsorbable, non-sterile July 25, 2020 SILAS: [id number] Issuing Agency: [facility] Device Id: [id number] Orthopaedic bone screw, non-bioabsorbable, non-sterile July 25, 2020 SILAS: [id number] Issuing Agency: [facility] Device Id: [id number] Orthopaedic bone screw, non-bioabsorbable, non-sterile July 25, 2020 SILAS: [id number] Issuing Agency: [facility] Device Id: [id number] Bone-screw internal spinal fixation system, non-sterile July 25, 2020 SILAS: [id number] Issuing Agency: [facility] Device Id: [id number] Bone-screw internal spinal fixation system, non-sterile July 25, 2020 SILAS: [id number] Issuing Agency: [facility] Device Id: [id number] Vital Signs Vital Reading Result Reference Range Collection Date/Time Height 67 [in_i] March 06, 2025 8:09am Weight 102.51 kg March 06, 2025 8:09am Respiratory rate 16 /min 12-24 March 06, 2025 8:09am Oxygen saturation by Pulse oximetry 98 % 95-10 0 March 06, 2025 8:09am BMI (Body Mass Index) 35.4 kg/m2 March 06, 2025 8:09am Advance Directives Advance Directive Response Recorded Date/ Time Advance Directives No December 9:31am Insurance Providers Guarantor Joy Asher Address [address] [place] [id number] Contact Info. Home Phone: Payer Policy Id Subscriber's Name Subscriber Id Effectiv e Date Expiration Date [facility] [id number] Joy Asher [id number] Encounters Encounter Location(s) Arrival/Admit Date Discharge/Depart Date Provider(s) Departed Physician/Prov ider Office Visit -[facility] March 06, 2025 7:41am March 06, 2025 9:08am Dani Nova DO Departed Physician/Prov ider Office Visit -[facility] May 31, 2025 8:03am May 31, 2025 8:48am Dani Roe MD Recent Diagnosis Onset Date Admit Date CKD (chronic kidney disease) stage 2, GFR 60-89 ml/min Unknown March 06, 2025 7:41am Constipation Unknown March 06, 2025 7:41am Diabetic neuropathy Unknown March 06, 2 025 7:41am Family history of dementia Unknown March 06, 2025 7:41am Rotator cuff syndrome of right shoulder Unknown March 06, 2025 7:41am Spondylolisthesis, lumbar region Unknown March 06, 2025 7:41am Chronic pain Unknown May 31, 2025 8 :03am Osteoarthritis of spine with radiculopathy, lumbar region Unknown May 31, 2025 8:03am Other low back pain Unknown May 31 8:03am Trochanteric bursitis Unknown May 31, 2025 8:03am Assessments Diagnosis Onset Date Resolution Status Admit Date CKD (chronic kidney disease) stage 2, GFR 60-89 ml/min acute March 06, 2025 7:41am Constipation acute March 06, 7:41am Diabetic neuropathy acute March 06, 2025 7:41am Family history of dementia acute March 06, 2025 7:41am Rotator cuff syndrome of rig ht shoulder acute March 06, 2025 7:41am Spondylolisthesis, lumbar region acu te March 06, 2025 7:41am Chronic pain acute May 31 8:03am Osteoarthritis of spine with radiculopathy, lumbar region acute May 8:03am Other low back pain acute May 31, 2025 8:03am Trochanteric bursitis acute May 8:03am Plan of Treatment Author Nixon Toure [facility] Authored May 31, 2025 8:09a m We discussed treatment optio ns for the patient's persistent bilateral hip/gluteal pain. Patient shows notable tenderness on exam over the bilateral trochanteric bursas. Given location of pain and exam findings, patient is a candidate for bilateral trochanteric bursa injections, which we will proceed with today in the office. Risks and benefits of procedure explained to patient; patient verbalizes understanding. Patient tolerated this well. Risks, benefits, and alternatives of the procedure we explained to patient. Patient agrees to proceed. The skin over the right hip was prepped using standard sterile technique. Using a 20g needle, 0.5% Bupivacaine and Triamcinolone 40 MG was injected. Patient tolerated procedure well with no apparent complications. Risks, benefits, and alternatives of the procedure we explained to patient. Patient agrees to proceed. The skin over the left hip, was prepped using standard sterile technique. Using a 20g needle, 0.5% Bupivacaine and Triamcinolone 40 MG was injected. Patient tolerated procedure well with no apparent complications. P Patient is voicing notable improvement of pain at this time. She attributes this to a recent bilateral lumbar facet radiofrequency ablation. We will continue to monitor her symptoms in this region. In the meantime, patient has continued need for Tramadol. An OARRS report was processed and reviewed and shows no violations, as well as an opioid risk assessment being completed without concerns. She denies any significant opioid related side effects and appears to be compliant with this medication. The patient was counseled and educated regarding the risks and benefits of fpc opioid use. She understands the associated risks with this medication and agrees that it provides reasonable benefit in regards to her pain control and level of function. Refill provided today. Anatomy of spine discussed in detail with patient in regards to patients condition. Overall, patient believes their pain is reasonably well controlled and she agrees with our treatment plan. Above note written by Corina Sánchez LPN, Bulk Plant Manager. Edited and approved by Dr. Blas Ortiz MD. Author [facility] Authored March 06, 2025 9:18 am Patient has not noticed any change in her memory since decreasing her evening dose of Lyrica. Encouraged patient to f/u with as scheduled. Patient is working to decrease her A1c, however she has not been below 6% in many many years. Encouraged patient to continue following with Dr. Ortiz. Had RFA last month. Patient frustrated with her A1c. I encouraged her to work towards a goal of 7%. She has recently had her insulins adjusted. I strongly encouraged her to make appropriate dietary modifications, exercise is limited but encouraged her to stay as active as she can. She is having increased neuropathy since decreasing Lyrica dose. She is going to stay at current dose and see how she handles it, however encouraged her to call if this becomes too bothersome. Encouraged patient to follow up with Dr. Whipple as scheduled. She does have labs ordered to be done. Patient has been taking fiber vitamins and miralax occasionally. Recommended that she increase the miralax to every other day until she becomes more regular. Encouraged patient to have labs done within the next few weeks and reschedule her manager market intelligence appointment. I will see her back in 4 months, however if something is abnormal on labs will call patient sooner. Sooner if needed, ER if concerns. The above note was written by Mendy Lopez LPN, acting as human recorder, note dictated by Dr. Charan Delgadillo. Future Tests Future scheduled test information is unavailable Pending Tests Pending diagnostic test information is unavailable Future Visits Future appointment information is unavailable Referrals to Other Providers Referral information is unavailable Future Procedures Future procedure information is unavailable Future Medications Future medication information is unavailable Patient Instructions Patient instructions are unavailable
--- OUTSIDE RECORDS SUMMARY | 2025-05-31 14:35 | XMS_ITS | Clinical Summary ---
Author Organization [facility] Address [address] [place], [place] [id number] Care Team Providers Care Fourth Grade Teacher Name Role Phone Charan Delgadillo DO Primary Care Provider [phone] Allergies Active Allergy Reactions Criticality Noted Date Comments Erythromycin GI Upset 11/12/2012 Medications Pregabalin (LYRICA) 200 mg capsule Take 200 mg by mouth twice daily. Active lovastatin 20 mg tablet Take 20 mg by mouth daily at bedtime. Active allopurinol 300 mg tablet Take 300 mg by mouth once daily. Active metFORMIN 1,000 mg tablet Take 1,000 mg by mouth twice daily with meals. Active omega-3 acid ethyl esters (LOVAZA) 1 gram capsule Take 1 g by mouth twice daily. Active magnesium oxide 400 mg cap Take by mouth. Activ e lisinopril 40 mg tablet Take 40 mg by mouth once daily. Active vitamin b complex (B COMPLEX 1) Tab Take 1 tablet by mouth once daily. Active ascorbic acid (VITAMIN C) 250 mg tablet Take 250 mg by mouth once daily. Active insulin lispro (HUMALOG) 100 unit/mL injection Inject subcutaneously three times daily before meals. Active insulin glargine (LANTUS) 100 unit/mL injection Inject 100 Units subcutaneously daily at bedtime. Active pregabalin (LYRICA) 300 mg capsule Take 300 mg by mouth once daily. Active metoprolol succinate XL, long acting, 200 mg 24 hr tablet Take 200 mg by mouth once daily. Active Calcium Carbonate-Lelo min D3 500 mg(1,250mg) -600 unit Chew Take 1 tablet by mouth three times daily. 90 tablet 2 3 Active Social History Tobacco Use Types Packs/Day Years Used Date Smoking Tobacco: Never Smokeless Tobacco: Never Alcohol Use Standard Drinks/Week Comments Not Asked 0 (1 standard drink = 0.6 oz pur e alcohol) occasionally Comments No Sex and Gender Information Value Date Recorded Sex Assigned at Not on file Legal Sex Female 8:57 AM EST Gender Identity Not on file Sexual Orientation Not on file Last Filed Vital Signs Vital Sign Reading Time Taken Comments Blood Pressure 122/72 12/23/2012 1:14 PM EST Pulse 79 12/23/2012 1:14 PM EST Temperature 36.7 C (98.1 F) 12/08/2012 6:43 AM EST Respiratory Rate 18 12/08/2012 6:43 AM EST Oxygen Saturation 96% 12/08/2012 6:43 AM EST Inhaled Oxygen Concentration - - Weight 98 kg (216 lb 1.6 oz) 12/23/2012 1:14 PM EST Height 170.2 cm (5' 7 ) 11/29/2012 10:21 AM EST Body Mass Index 33.85 11/29/2012 10:21 AM EST Plan of Treatment Health Maintenance Due Date Last Done Comments Anxiety Screening 1978 Depression Screening 1978 HIV Screening 1978 Hepatitis C Screening 1978 DTaP,Tdap,Td Vaccine (1 - Tdap) 1979 Cervical Cancer Screening [address] Colonography 2005 Cologuard (FIT-DNA) 2005 Colonoscopy 2005 Colorectal Cancer Screening 2005 Fecal Occult Blood 2005 Lipid Screening 2005 Sigmoidoscopy 2005 Pneumococcal Vaccine: 50+ (1 of 1 - PCV) 2010 Shingrix Vaccine (1 of 2) 2010 Diabetes Screening 11/29/2015 11/29/2012 Covid-19 Vaccine (1 - 2023-25 season) 2024 Influenza Vaccine (#1) 2025 RSV Vaccine (1 - 1-dose 75+ series) 2035 Procedures Procedure Name Priority Date/Time Associated Diagnosis Comments BASIC METABOLIC PANEL Routine 11/29/2012 10:11 AM EST Hyperparathyroidism, unspecified Preoperative examination, unspecified from Last 3 Months or Most Recently Relevant to Health Maintenance Results * (ABNORMAL) BASIC METABOLIC PNL (11/29/2012 10:11 AM EST) Glucose 316(H) 65 - 100 mg/dL [facility] BUN 15 8 - 25 mg/dL [facility] Creatinine 0.78 0.70 - 1.40 mg/dL [facility] Sodium 135 132 - 148 mmol/L [facility] Potassium 4.4 3.5 - 5.0 mmol/L [facility] Chloride 96(L) 98 - 110 mmol/L [facility] CO2 23 23 - 32 mmol/L [facility] Anion Gap 16(H) 0 - 15 mmol/L [facility] Calcium 11.4(H) 8.5 - 10.5 mg/dL [facility] eGFR- >60 [facility] eGFR-All Other Races >60 . [facility] Comment: eGFR (Estimated GFR) Units of measure: mL/min/1.73 meters squared eGFR is derived from the reexpressed MDRD Study equation using the following parameters: serum creatinine, age, gender and race. The creatinine assay has been calibrated to be traceable to IDMS. An eGFR <60 mL/min/1.73m2 for >3 months is consistent with chronic kidney disease. Refer to KDOQI guidelines for clinical interpretation. Blood specimen (specimen) BLOOD SPECIMEN / Unknown 11/29/2012 10:11 AM EST 11/29/2012 10:13 AM EST Dorothy Renteria MD LABORATORY Final Result [facility] [address] [place] [address] from Last 3 Months or Most Recently Relevant to Health Maintenance [facility] Care Teams Fourth Grade Teacher Relationship Specialty Start Date End Date Charan Delgadillo DO [address] [place] [address] PCP - General Family Medicine 11/08/12
--- OUTSIDE RECORDS SUMMARY | 2025-05-31 14:35 | XMS_ITS | Clinical Summary ---
Author Organization [facility] Address [address] [place] [address] Phone Care Team Providers Care Project Construction Manager Name Role Phone Charan Delgadillo DO Primary Care Provider [phone] Rosalinda Cordova MD Unavailable [phone] Allergies Active Allergy Reactions Criticality Noted Date [...] daily. Active ergocalciferol (Vitamin D-2) 1.25 MG (49954 UT) capsule Take 1 capsule (50,000 Units) [...] 10 mg tabletIndications :Atherosclerotic heart disease of [place] coronary artery without angina pectoris Take 1 [...] Description 11/03/2025 2:30 PM EST Office Visit [facility] [address] [phone] Rosalinda Cordova MD [address] [facility] [address] [place] [address] Health Maintenance Due Date Last Done Comments [...] patient's age to complete this topic Insurance [facility] [employer] MEDICARE [employer] [place] MEDICARE [facility] [employer] MEDICARE [employer] [place] MEDICARE Member Subscriber Plan / Payer ( fective 2024-Present) Name:Joy Asher Relation to Subscriber:Self Name:Joy Asher Payer ID:Not on file Type:Not on file Address: [address] [place] [id number] Care Teams Project Construction Manager Relationship Specialty Start Date End Date Charan Delgadillo DO PCP - General Family Medicine 02/22/24 Rosalinda Cordova MD [address] [facility] [address], [place] [phone] Consulting Physician Cardiology 02/22/24
--- OUTSIDE RECORDS SUMMARY | 2025-05-31 14:35 | XMS_ITS | Encounter Summary ---
Author Organization [facility] Address [address] [place] [id number] Phone Care Team Providers Care Uniform Force Captain Name Role Phone Charan Delgadillo DO Primary Care Provider [phone] Charan Delgadillo DO Primary Care Provider [phone] Rosalinda Cordova MD Unavailable [phone] Encounter Details Date Type Department Care Team (Late st Contact Info) Description 04/30/[address] [facility] [address] [place] [address] Conversion, Onbase Social History Tobacco Use Types [...] Description 11/03/2025 2:30 PM EST Office Visit [facility] [address] [facility] [address] [place] [address] Rosalinda Cordova MD [address] [facility] [address], [address] [place] [address] Scheduled Orders Name Type Priority Associated Diagnoses Orde r Schedule SLEEP STUDY ORDER - ONBASE SCAN Sleep Center Ordered: 022 documented as of this encounter Visit Diagnoses Not on filedocumented in this encounter Care Teams Uniform Force Captain Relationship Specialty Start Date End Date Charan Delgadillo DO PCP - General 07/09/20 02/21/24 Charan Delgadillo DO PCP - General Family Medicine 02/22/24 Rosalinda Cordova MD 7[address] [facility], [place] [address] Consulting Physician Cardiology 02/22/24 documented as of this encounter
--- OUTSIDE RECORDS SUMMARY | 2025-05-31 14:35 | XMS_ITS | Encounter Summary ---
Author Organization [facility] Address [address] [place] [phone] Phone Care Team Providers Care Material Inspector Name Role Phone Charan Delgadillo DO Primary Care Provider [phone] Charan Delgadillo DO Primary Care Provider [phone] Rosalinda Cordova MD Unavailable [phone] Encounter Details Date Type Department Care Team (Late st Contact Info) Description 08/13/2022 Orders Only [facility] [address] [place] [address] Conversion, Onbase Social History Tobacco Use Types [...] Description 11/03/2025 2:30 PM EST Office Visit [facility] 703 [facility] [address] [place] [address] Rosalinda Cordova MD [address]03 [facility] [address], [address] [place] [address] Scheduled Orders Name Type Priority Associated Diagnoses Orde r Schedule OUTSIDE LAB SCAN Lab Ordered: 08/13/2022 documented as of this encounter Visit Diagnoses Not on filedocumented in this encounter Care Teams Material Inspector Relationship Specialty Start Date End Date Charan Delgadillo DO PCP - General 07/09/20 02/21/24 Charan Delgadillo DO PCP - General Family Medicine 02/22/24 Rosalinda Cordova MD 703 [facility] [address], [place] [address] Consulting Physician Cardiology 02/22/24 documented as of this encounter
--- OUTSIDE RECORDS SUMMARY | 2025-05-31 14:35 | XMS_ITS | Encounter Summary ---
Author Organization [facility] Address [address] [place] [address] Phone Care Team Providers Care Material Manager Name Role Phone Charan Delgadillo DO Primary Care Provider [phone] Charan Delgadillo DO Primary Care Provider [phone] Rosalinda Cordova MD Unavailable Encounter Details Date Type Department Care Team (Late st Contact Info) Description 11/26/2023 Scanned Document [facility] [address] [place] [phone] Scanning, Generic Provider Social History Tobacco Use [...] Description 11/03/2025 2:30 PM EST Office Visit [facility] [address] [facility] [address] [place] [address] Rosalinda Cordova MD 7[address] [facility] [address], [address] [place] [address] documented as of this encounter Visit Diagnoses Not on filedocumented in this encounter Care Teams Material Manager Relationship Specialty Start Date End Date Charan Delgadillo DO PCP - General 07/09/20 02/21/24 Charan Delgadillo DO PCP - General Family Medicine 02/22/24 Rosalinda Cordova MD 7[address] [facility] [address], [place] [address] Consulting Physician Cardiology 02/22/24 documented as of this encounter
--- OUTSIDE RECORDS SUMMARY | 2025-05-31 14:35 | XMS_ITS | Encounter Summary ---
Author Organization [facility] Address [address] [place] [address] Phone Care Team Providers Care Component Lab Tech Name Role Phone Yeison Delgadilloan Dani BASSETT Primary Care Provider [phone] Rosalinda Cordova MD Unavailable [phone] Encounter Details Date Type Department Care Team (Late st Contact Info) Description 12/08/2024 Scanned Document [facility] [address] [place] [address] Scanning, Generic Provider Social History [...] Description 11/03/2025 2:30 PM EST Office Visit [facility] [address] [address] Rosalinda Cordova MD 703 [facility] [address], [address] [place] [address] documented as of this encounter [...] documented as of this encounter Care Teams Component Lab Tech Relationship Specialty Start Date End Date Charan Delgadillo DO PCP - General Family Medicine 02/22/24 Rosalinda Cordova MD 703 [facility] [address], [place] [phone] Consulting Physician Cardiology 02/22/24 documented as of this encounter
--- OUTSIDE RECORDS SUMMARY | 2025-05-31 14:35 | XMS_ITS | Encounter Summary ---
Author Organization [facility] Address [address] [place] [phone] Phone Care Team Providers Care Mail Processor Name Role Phone Charan Delgadillo DO Primary Care Provider [phone] Charan Delgadillo DO Primary Care Provider [phone] Rosalinda Cordova MD Unavailable [phone] Encounter Details Date Type Department Care Team (Late st Contact Info) Description 03/06/2023 Orders Only [facility] [address] [place] [address] Conversion, Onbase Social History Tobacco Use Types [...] Description 11/03/2025 2:30 PM EST Office Visit [facility] 703 [facility] 250 [place] [address] Rosalinda Cordova MD 703 [facility] 2, [address] [place] [address] Scheduled Orders Name Type Priority Associated Diagnoses Orde r Schedule OUTSIDE LAB SCAN Lab Ordered: 03/06/2023 documented as of this encounter Visit Diagnoses Not on filedocumented in this encounter Care Teams Mail Processor Relationship Specialty Start Date End Date Charan Delgadillo DO PCP - General 07/09/20 02/21/24 Charan Delgadillo DO PCP - General Family Medicine 02/22/24 Rosalinda Cordova MD 703 [facility] 2, [place] [address] Consulting Physician Cardiology 02/22/24 documented as of this encounter
--- OUTSIDE RECORDS SUMMARY | 2025-05-31 14:36 | XMS_ITS | Encounter Summary ---
Author Organization [facility] Address [address] [place] [address] Phone Care Team Providers Care Network Program Manager Name Role Phone Charan Delgadillo DO Primary Care Provider [phone] Charan Delgadillo DO Primary Care Provider [phone] Rosalinda Cordvoa MD Unavailable [phone] Encounter Details Date Type Department Care Team (Late st Contact Info) Description 12/30/2023 Scanned Document [facility] [address] [place] [address] Scanning, Generic Provider Social History Tobacco Use [...] Office Visit [facility] [address] [facility] 250 [place] [address] Rosalinda Cordova MD 703 [facility] 2, [address] [place] [address] documented as of this encounter Procedures Procedure Name Priority Date/Time Associated Diagnosis Comments OUTSIDE IMAGING SCAN 12/30/2023 documented in this encounter Results * OUTSIDE IMAGING SCAN (12/30/2023) Anatomical Region Laterality Modality Other Narrative 12/30/2023 Ordered by an unspecified provider. us Generic Provider Scanning OUTSIDE SCAN Final Result documented in this encounter Visit Diagnoses Not on filedocumented in this encounter Care Teams Network Program Manager Relationship Specialty Start Date End Date Charan Delgadillo DO PCP - General 07/09/20 02/21/24 Charan Delgadillo DO PCP - General Family Medicine 02/22/24 Rosalinda Cordova MD 703 [facility] 2, [address] [address] Consulting Physician Cardiology 02/22/24 documented as of this encounter
--- OUTSIDE RECORDS SUMMARY | 2025-05-31 14:36 | XMS_ITS | Encounter Summary ---
Author Organization [facility] Address [address] [place] [id number] Phone Care Team Providers Care Independent Marketing Consultant Name Role Phone Charan Delgadillo DO Primary Care Provider [phone] Charan Delgadillo DO Primary Care Provider [phone] Rosalinda Cordova MD Unavailable [phone] Encounter Details Date Type Department Care Team (Late st Contact Info) Description 11/19/2021 Orders Only [facility] [address] [place] [address] Conversion, Onbase Social History Tobacco Use Types [...] Office Visit [facility] 703 [facility] 250 [place] [address] Rosalinda Cordova MD 703 [facility] 2, [address] [place] [address] Scheduled Orders Name Type Priority Associated Diagnoses Orde r Schedule OUTSIDE LAB SCAN Lab Ordered: 11/19/2021 documented as of this encounter Visit Diagnoses Not on filedocumented in this encounter Care Teams Independent Marketing Consultant Relationship Specialty Start Date End Date Charan Delgadillo DO PCP - General 07/09/20 02/21/24 Charan Delgadillo DO PCP - General Family Medicine 02/22/24 Rosalinda Cordova MD 703 [facility] 2, [place] [address] Consulting Physician Cardiology 02/22/24 documented as of this encounter
--- OUTSIDE RECORDS SUMMARY | 2025-05-31 14:36 | XMS_ITS | Encounter Summary ---
Author Organization [facility] Address [address] [place] [phone] Phone Care Team Providers Care Active Directory Specialist Name Role Phone Charan Delgadillo DO Primary Care Provider [phone] Charan Delgadillo DO Primary Care Provider [phone] Rosalinda Cordova MD Unavailable [phone] Encounter Details Date Type Department Care Team (Late st Contact Info) Description 04/17/2020 Orders Only [facility] [address] [place] [address] Conversion, Onbase Social History Tobacco Use Types [...] Description 11/03/2025 2:30 PM EST Office Visit [facility] [address] [address] Rosalinda Cordova MD [address] [facility] [address], [address] [place] [address] Scheduled Orders Name Type Priority Associated Diagnoses Orde r Schedule OUTSIDE LAB SCAN Lab Ordered: 04/17/2020 documented as of this encounter Visit Diagnoses Not on filedocumented in this encounter Care Teams Active Directory Specialist Relationship Specialty Start Date End Date Charan Delgadillo DO PCP - General 07/09/20 02/21/24 Charan Delgadillo DO PCP - General Family Medicine 02/22/24 Rosalinda Cordova MD [address] [facility] 2, [place] [address] Consulting Physician Cardiology 02/22/24 documented as of this encounter
--- OUTSIDE RECORDS SUMMARY | 2025-05-31 14:36 | XMS_ITS | Encounter Summary ---
Author Organization [facility] Address [address] [place] [address] Phone Care Team Providers Care Sewing Trimmer Name Role Phone Charan Delgadillo DO Primary Care Provider [phone] Charan Delgadillo DO Primary Care Provider [phone] Rosalinda Cordova MD Unavailable Encounter Details Date Type Department Care Team (Late Contact Info) Description 02/19/2022 Orders Only [facility] [address] [place] [address] Conversion, Onbase Social History Tobacco Use Types [...] Description 11/03/2025 2:30 PM EST Office Visit [facility] 703 [facility] [address] [place] [address] Rosalinda Cordova MD 703 [facility] 2, [address] [place] [address] Scheduled Orders Name Type Priority Associated Diagnoses Orde r Schedule OUTSIDE LAB SCAN Lab Ordered: 02/19/2022 documented as of this encounter Visit Diagnoses Not on filedocumented in this encounter Care Teams Sewing Trimmer Relationship Specialty Start Date End Date Charan Delgadillo DO PCP - General 07/09/20 02/21/24 Charan Delgadillo DO PCP - General Family Medicine 02/22/24 Rosalinda Cordova MD 703 [facility] 2, [place] [id number] Consulting Physician Cardiology 02/22/24 documented as of this encounter
--- OUTSIDE RECORDS SUMMARY | 2025-05-31 14:36 | XMS_ITS | Encounter Summary ---
Author Organization [facility] Address [address] [place] [address] Phone Care Team Providers Care Manager Of International Name Role Phone Yeison Delgadilloan Dani BASSETT Primary Care Provider [phone] Rosalinda Cordova MD Unavailable [phone] Encounter Details Date Type Department Care Team (Late st Contact Info) Description 02/29/2024 Scanned Document [facility] [address] [place] [address] Scanning, Generic Provider Social History [...] Description 11/03/2025 2:30 PM EST Office Visit [facility] 703 [facility] 250 [place] [address] Rosalinda Cordova MD 703 [facility] [address], [address] [place] [address] documented as of this encounter Visit Diagnoses Not on filedocumented in this encounter Additional Health Concerns Assessment Noted Time A fall risk assessment has been complete d for the patient 02/22/2024 2:26 PM EDT documented as of this encounter Care Teams Manager Of International Relationship Specialty Start Date End Date Charan Delgadillo DO PCP - General Family Medicine 02/22/24 Rosalinda Cordova MD 703 [facility] 2, [place] [address] Consulting Physician Cardiology 02/22/24 documented as of this encounter
--- OUTSIDE RECORDS SUMMARY | 2025-05-31 14:36 | XMS_ITS | Encounter Summary ---
Author Organization [facility] Address [address] [place] [phone] Phone Care Team Providers Care Boxing Inspector Name Role Phone Charan Delgadillo DO Primary Care Provider [phone] Charan Delgadillo DO Primary Care Provider [phone] Rosalinda Cordova MD Unavailable [phone] Encounter Details Date Type Department Care Team (Late st Contact Info) Description 03/25/2022 Orders Only [facility] [address] [place] [address] Conversion, Onbase Social History Tobacco Use Types [...] Office Visit [facility] 703 [facility] 250 [place] [address] Rosalinda Cordova MD 703 [facility] 2, [address] [place] [address] Scheduled Orders Name Type Priority Associated Diagnoses Orde r Schedule OUTSIDE LAB SCAN Lab Ordered: 03/25/2022 OUTSIDE LAB SCAN Lab Ordered: 03/25/2022 OUTSIDE LAB SCAN Lab Ordered: 03/25/2022 documented as of this encounter Visit Diagnoses Not on filedocumented in this encounter Care Teams Boxing Inspector Relationship Specialty Start Date End Date Charan Delgadillo DO PCP - General 07/09/20 02/21/24 Charan Delgadillo DO PCP - General Family Medicine 02/22/24 Rosalinda Cordova MD 3 [facility] 2, [address] [address] Consulting Physician Cardiology 02/22/24 documented as of this encounter
--- OUTSIDE RECORDS SUMMARY | 2025-05-31 14:36 | XMS_ITS | Encounter Summary ---
Author Organization [facility] Address [address] [place] [phone] Phone Care Team Providers Care Spray Booth Operator Name Role Phone Charan Delgadillo DO Primary Care Provider [phone] Charan Delgadillo DO Primary Care Provider [phone] Rosalinda Cordova MD Unavailable [phone] Encounter Details Date Type Department Care Team (Late st Contact Info) Description 06/19/2020 Orders Only [facility] [address] [place] [address] Conversion, Onbase Social History Tobacco Use Types [...] Description 11/03/2025 2:30 PM EST Office Visit [facility] [address] [address] Rosalinda Cordova MD [address] [facility] [address], [address] [place] [address] Scheduled Orders Name Type Priority Associated Diagnoses Orde r Schedule OUTSIDE LAB SCAN Lab Ordered: 06/19/2020 documented as of this encounter Visit Diagnoses Not on filedocumented in this encounter Care Teams Spray Booth Operator Relationship Specialty Start Date End Date Charan Delgadillo DO PCP - General 07/09/20 02/21/24 Charan Delgadillo DO PCP - General Family Medicine 02/22/24 Rosalinda Cordova MD 703 [facility] 2, [place] [address] Consulting Physician Cardiology 02/22/24 documented as of this encounter
--- OUTSIDE RECORDS SUMMARY | 2025-05-31 14:36 | XMS_ITS | Encounter Summary ---
Author Organization [facility] Address [address] [place] [phone] Phone Care Team Providers Care Prawn Trawler Hand Name Role Phone Charan Delgadillo DO Primary Care Provider [phone] Charan Delgadillo DO Primary Care Provider [phone] Rosalinda Cordova MD Unavailable [phone] Encounter Details Date Type Department Care Team (Late st Contact Info) Description 10/22/2021 Orders Only [facility] [address] [place] [address] Conversion, Onbase Social History Tobacco Use Types [...] Description 11/03/2025 2:30 PM EST Office Visit [facility] 703 [facility] 250 [place] [address] Rosalinda Cordova MD 703 [facility] 2, [address] [place] [address] Scheduled Orders Name Type Priority Associated Diagnoses Orde r Schedule SLEEP STUDY ORDER - ONBASE SCAN Sleep Center Ordered: 021 documented as of this encounter Visit Diagnoses Not on filedocumented in this encounter Care Teams Prawn Trawler Hand Relationship Specialty Start Date End Date Charan Delgadillo DO PCP - General 07/09/20 02/21/24 Charan Delgadillo DO PCP - General Family Medicine 02/22/24 Rosalinda Cordova MD 703 [facility] 2, [place] [address] Consulting Physician Cardiology 02/22/24 documented as of this encounter
--- OUTSIDE RECORDS SUMMARY | 2025-05-31 14:36 | XMS_ITS | Patient Health Record ---
Author Organization [facility] in [place] Address [address] [place] [address] Care Team Providers Care Med Admin Name Role Phone Charan Delgadillo DO Primary Care Provider Acosta Cid [facility] [phone] Allergies Allergen (clinical drug ingredient) Drug/Non Drug Allergy documented on EMR Reaction Allergy Type Onset Date Status erythromycin Erythromycin Unknown Drug Allergy A ctive Results Component Value Reference Range Notes XR Foot 3 Views Bilateral Reviewed date:06/27/2024 07:42:25 AM Interpretation: Performing Lab: Notes/Report: XR foot LAURA min 3V (Not yet reviewed by provider) Interpretation: Performing Lab: Notes/Report: Source Facility: [place] [address] XRay Report Signed Patient: Joy Cobb MR#: [id number] : 1960 Acct:[id number] Age/Sex: 63 / F ADM Date: 06/22/24 Loc: EC Attending Dr: Acosta Fernandez D.P.M. Ordering Physician: Acosta Fernandez D.P.M. Date of Service: 06/22/24 Procedure(s): XR foot LAURA min 3V Accession Number(s): [id number] cc: Acosta Fernandez D.P.M.; Physician,Non-Staff [place] [address] Patient Name: JOY COBB MRN: [id number] date: 1960 Sex: F Assigned Patient Location: EC Current Patient Location: EC Accession/Order Number: [id number] Exam Date: 06/22/2024 09:20 Report Date: 06/22/2024 10:39 At the request of: ACOSTA FERNANDEZ Procedure: XR foot LAURA min 3V EXAMINATION: XR foot LAURA min 3V HISTORY: BILATERAL FOOT PAIN COMPARISON: No relevant comparison available. FINDINGS: RIGHT FINDINGS: BONES: No acute fracture or dislocation. Plantar rotation of the hindfoot/navicular in relation to the midfoot and forefoot. Segmental appearance of the first and second tarsal bones likely representing remote osteotomies with incomplete fusion. Severe osteoarthritis most significant along the second through fifth tarsometatarsal joints and second and third metatarsal phalangeal joints. SOFT TISSUES: Negative. No visible soft tissue swelling. OTHER: Negative. LEFT FINDINGS: BONES: Marked degenerative changes with plantar rotation of the midfoot/hindfoot in relation to the forefoot. Subtalar fusion. Screw extending from the first metatarsal into the navicular. Suspected osteotomy at the base of the first through fifth metatarsals. Severe osteoarthritis of the first interphalangeal joint SOFT TISSUES: Negative. No visible soft tissue swelling. OTHER: Negative. XR/XR foot LAURA min 3V IMPRESSION: Severe bilateral osteoarthritis with postsurgical changes as detailed above Electronically authenticated by: BRODERICK FLOR Date: 06/22/2024 10:39 Dictated By: Broderick Flor M.D. Signed By: 06/22/24 1042 DD/ 1039 TD/TT: Group Leader: [place] [address] XRay Report Signed Patient: Jyo Cobb MR#: [id number] : 1960 Acct:[id number] Age/Sex: 63 / F ADM Date: 06/22/24 Loc: EC Attending Dr: Acosta Fernandez D.P.M. Ordering Physician: Acosta Fernandez D.P.M. Date of Service: 06/22/24 Procedure(s): XR david t LAURA min 3V Accession Number(s): [id number] cc: Acosta Fernandez D.P.M.; Physician,Non-Staff [place] [address] Patient Name: JOY COBB MRN: [id number] date: 1960 Sex: F Assigned Patient Location: Current Patient Location: Accession/Order Numb er: [id number] Exam Date: 06/22/2024 09:20 Report Date: 06/22/2024 10:39 At the request of: ACOSTA FERNANDEZ Procedure: XR foot LAURA min 3V EXAMINATION: XR foot LAURA min 3V HISTORY: BILATERAL FOOT PAIN COMPARISON: No relev ant comparison available. FINDINGS: RIGHT FINDINGS: BONES: No acute frac ture or dislocation. Plantar rotation of the hindfoot/navicular i n relation to the midfoot and forefoot. Segmental appearance of the fi rst and second tarsal bones likely representing remote osteotomies with inc omplete fusion. Severe osteoarthritis most significant along the second thr ough fifth tarsometatarsal joints and second and third metatarsal phalangeal joints. SOFT TISSUES: Negati ve. No visible soft tissue swelling. OTHER: Negative. LEFT FINDINGS: BONES: Marked degene rative changes with plantar rotation of the midfoot/hindfoot in relation to the forefoot. Subtalar fusion. Screw extending from the first metat arsal into the navicular. Suspected osteotomy at the base of the first through fifth metatarsals. Severe osteoarthritis of the first interphalangeal joint SOFT TISSUES: Negati ve. No visible soft tissue swelling. OTHER: Negative. X R/XR foot LAURA min 3V IMPRESSION: Severe bilateral ost eoarthritis with postsurgical changes as detailed above Electronically authe nticated by: BRODERICK FLOR Date: 06/22/2024 10:39 Dictated By: Broderick Flor M.D. Signed By: 06/22/24 1042 DD/ 1039 TD/TT: Group Leader: Reason For Referral Reason evaluation and treat ment -- see attached order Diagnosis 1 Charcot's joint of l eft foot (M14.672) Diagnosis 2 Charcot's joint, rig ht ankle and foot (M14.671) Referral Organization [facility] (PODIATRY) Referring Provider First Name Acosta Referring Provider Last Name Rebecca Referring Provider Speciality Podiatry Referred Provider [place], Physical Therapy Referred Provider Specialty Physical Med icine and Rehabilitation Referral Priority Routine Medications Medication SIG (Take, Route, Frequency, Duration) Notes Start Date End Date Status Lyrica 150 MG 1 capsule Orally Onc e a day Active Allopurinol 100 MG 1 tablet Orally Once a day for 30 day(s) Active Metoprolol Succinate 200 MG 1 capsule Orally Once a day for 30 day(s) Active Mag Glycinate 100 MG as directed Orally Active Fosamax 70 MG 1 tablet 30 minutes before the first food, beverage or medicine of the day with plain water Orally for 30 day(s) Active Brooke-C - as directed Orally A ctive Lyrica 300 MG 1 capsule in the sirisha orlando 1 to 3 hours before bedtime Orally Once a day Active HumaLOG KwikPen 100 UNIT/ML as directed Subcutaneous Act jenna Benicar 40 MG 1 tablet Orally Once a day for 30 day(s) Active Vitamin D3 50 MCG (2000 UT) 1 capsule Orally Once a day for 90 days 06/10/2023 Active Aspirin 81 MG 1 tablet Orally Once a day for 30 day(s) Active [place] 3 1000 MG 1 capsule Orally Onc e a day for 30 day(s) Active Brilinta 90 MG 1 tablet Orally Twic e a day for 30 day(s) Active Social History Tobacco Use: Social History Observation Description Date Details (start date - stop date) Never Smoker NA - NA Tobacco Use/Smoking Question Answer Notes Patient is a nonsmoker Section Notes: Unknown if smoker Unknown if smoker Unknown if smoker Unknown if smoker Unknown if smoker Unknown if smoker Unknown if smoker Unknown if smoker Unknown if smoker Unknown if smoker Unknown if smoker Unknown if smoker Unknown if smoker Unknown if smoker Unknown if smoker Problems Problem Type SNOMED Code ICD Code Onset Dates Problem Status W/U Status Risk Notes Problem 270358315395999 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.621) Active confirmed Problem 600349955 Ingrowing nail (L60.0) Active confirmed Problem 24157036110396278 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) Active confirmed Problem 720554573 Charcot's joint, right ankle and foot (M14.671) Active confirmed Problem 393147618 Primary osteoarthritis, left ankle and foot (M19.072) Active confirmed Problem 031759001 Other hammer toe (s) (acquired), left foot (M20.42) Active confirmed Problem 828463464 Other specified acquired deformities of right lower leg (M21.861) Active confirmed Problem 28726651908111087 Pain in right ankle and joints of right foot (M25.571) Active confirmed Problem 465886015 Pain in left ank le and joints of left foot (M25.572) Active confirmed Problem 12119287271974257 Pain in right foot (M79.671) Active confirmed Problem 407313957936967 Pain in left david t (M79.672) Active confirmed Problem 032415987 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) Active confirmed Problem 13071855 Pain due to inte rnal orthopedic prosthetic devices, implants and grafts, initial encounter (T84.84XA) Active confirmed Problem Hypertension (44163707) HTN (hypertension) (I10) Active confirmed Problem Diabetic nephropathy (651503854) Diabetic nephropathy (E11.21) Active confirmed Problem Heart disease (10691405) Heart disease (I51.9) Active confirmed Problem 136355643 Charcot's joint of left foot (M14.672) Active confirmed Problem 301145613 Postoperative wo und dehiscence, subsequent encounter (T81.31XD) Active confirmed Problem Hypercholesterolemia (68007553) Hypercholesterolemia (E78.00) Active confirmed Problem 140181288 Charcot's joint of right foot (M14.671) Active confirmed Problem 047079893 Acquired abducti on deformity of left foot (M21.6X2) Active confirmed Problem Diabetes mellitus (63586866) Diabetes mellitus (E11.9) Active confirmed Vital Signs Heart Rate 91 /min 07/12/2024 Temperature 97.3 degrees Fahrenheit 07/12/2024 Oximetry 97 % 07/12/2024 Height 67 in 07/12/2024 Weight 235 lbs 07/12/2024 BMI 36.8 kg/m2 07/12/2024 Encounters Encounter Location Date Provider Diagnosis [facility] (PODIATRY) [address] [place] [address] [address] [place] [address] 06/22/2024 Acosta Fernandez Pseudarthrosis after fusion or arthrodesis M96.0 ; Charcot's joint of left foot M14.672 ; Ingrowing nail L60.0 ; Charcot's joint, right ankle and foot M14.671 ; Cutaneous abscess of left foot L02.612 and Pain in right foot M79.671 [facility] (PODIATRY) [address] [place] [address] [address] [place], [place] [address] 07/12/2024 Acosta Fernandez Cutaneous abscess of left foot L02.612 Assessments [...] joint of left foot (ICD-10 - M14.672) 07/12/2024 Cutaneous abscess of left foot (ICD-10 [...] additional physical therapy which was provided today. 06/22/2024 Ingrowing nail (ICD-10 - L60.0) 06/22/2024 [...] foot (ICD-10 - M79.671) Plan Of Treatment Pending Test Test Name Order Date POINT OF CARE GLUCOSE 04/13/2023 PROF CHEM 8 (BAS METB) 03/31/2023 XR foot LAURA min 3V 06/22/2024 Insurance Providers Payer Name Payer Address Payer Phone Subscriber Number Group Number Insured Name Patient Relationship to Insured Coverage Start Date Coverage End Date [facility] [address] [place], [place] [id number] Joy Cobb Self - patient is the insured Medical (General) History Medical History History ICD Code Charcot's joint of left foot M14.672 Tinea pedis of left foot B35.3 Other specified acquired deformities of right lower leg M21.861 Equinus contracture of left ankle M24.57 2 Valgus deformity, not elsewhere classifi ed, left ankle M21.072 Varus deformity, not elsewhere classifie d, left ankle M21.172 Acquired abduction deformity of left david t M21.6X2 Charcot's joint of right foot M14.671 Pain in right ankle and joints of right foot M25.571 Pain in left ankle and joints of left fo ot M25.572 Pain in right foot M79.671 Pain in left foot M79.672 Diabetic nephropathy E11.21 Hypercholesterolemia E78.00 HTN (hypertension) I10 Heart disease I51.9 Diabetes mellitus E11.9 Surgical History Surgery Date(Month/Year) Parathyroidectomy Cervical Spine Fusion Lumbar Spine Fusion LT Ankle exploration/bx Dr Seymour 2018 Heart Stents 03/27/2022 LT midfoot fustion with elizabeth ective osteotomy, talonavicular/subtaler joint fustions, harvest of distal tibial bone graft, gastrocnemius recession/exostectomy Dr Fernandez 12/29/2022 removal deep implanted hardware left david t 04/13/2023 back injections Hospitalization History Reason Date(Month/Year) see above
== END 2025-05-31 14:34 | disposition home or self-care (01) ==
LOC: WC 14:33
PROVIDERS: Visit Provider Podiatrist Foot & Ankle Surgery
DX: E11.621 Type 2 diabetes mellitus with foot ulcer (principal); L97.422 Non-pressure chronic ulcer of left heel and midfoot with fat layer exposed
CPT/HCPCS: G0463

== ENCOUNTER 2025-06-21 13:50 | Outpatient (OUT) | payer MEDICARE, SELFPAY ==
--- OUTSIDE RECORDS SUMMARY | 2024-02-16 09:30 | XMS_ITS ---
Author Organization The [facility] in [place] Address [address] [place] [address] Care Team Providers Care Serials Librarian Name Role Phone Charan Delgadillo DO Primary Care Provider Torres Cid [phone] Allergies Allergen (clinical drug ingredient) Drug/Non Drug Allergy documented on EMR Reaction Allergy Type Onset Date Status erythromycin Erythromycin Unknown Drug Allergy A ctive Results Component Value Reference Range Notes XR Foot LT (3 views) * Reviewed date:02/22/2024 03:18:33 PM Interpretation: Performing Lab: Notes/Report: REASON FOR VISIT 2 month f/u Medications Medication SIG (Take, Route, Frequency, Duration) Notes Start Date End Date Status [place] 3 1000 MG 1 capsule Orally Onc [...] Problem Status W/U Status Risk Notes Problem [id number] Pseudarthrosis after fusion or arthrodesis (M96.0) Active confirmed Vital Signs Weight 239 lbs 02/16/2024 Height 67 in 02/16/2024 Temperature 97.9 degrees Fahrenheit 02/16/20 BMI 37.43 kg/m2 02/16/2024 Encounters Encounter Location Date Provider Diagnosis [facility] (PODIATRY) [address] [place] [address] [address] [place] [address] 02/16/2024 Torres Fernandez Charcot's joint of left [...] Notes * Joy COBBDOB:1960 (63 yo F)Acc No.[id number]:02/16/2024 Follow Up Patient: Joy Huertas Provider: Dani Fernandez DPM, MS :1960 A ge:63 Y S ex:Female Date:02/16/2024 Address:[address] [place] [address], [place], [id number] Pcp:Charan Delgadillo, DO Check In:01:12 PM ESTCheck [...] Sprinkle 1 capsule Orally Once a dayTaking [place] 3 1000 MG Capsule 1 capsule Orally [...] 02/16/2024 Generated for Simon franks/Laura/Rashiitting on: 0 06/21/2025 09:34 AM EDT History and Physical Notes * [...]
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
--- OUTSIDE RECORDS SUMMARY | 2024-07-12 06:15 | XMS_ITS ---
Author Organization [facility] [place] Address [address] [place] [place] [address] Care Team Providers Care Communication Equipment Mechanic Name Role Phone Charan Delgadillo DO Primary Care Provider Torres Cid [phone] Allergies Allergen (clinical drug ingredient) Drug/Non Drug Allergy documented on EMR Reaction Allergy Type Onset Date Status erythromycin Erythromycin Unknown Drug Allergy A ctive Reason For Referral Reason evaluation and treat ment -- see attached order Diagnosis 1 Charcot's joint of l eft foot (M14.672) Diagnosis 2 Charcot's joint, rig ht ankle and foot (M14.671) Referral Organization [facility] (PODIATRY) Referring Provider First Name Torres Referring [...] a day for 90 days 06/10/2023 Active [place] 3 1000 MG 1 capsule Orally Onc [...] Encounter Location Date Provider Diagnosis [facility] (PODIATRY) [address] [place] [address] [place] [address] 07/12/2024 [facility] Cutaneous abscess of left foot [...] -- see attached order, Physical Therapy [facility] [place] Progress Notes * Tracie COBB:1960 (63 yo F)Acc No.[id number]:07/12/2024 Follow Up Patient: Joy CHAVEZ Provider: Dani Fernandez DPM, MS :1960 A ge:63 Y S ex:Female Date:07/12/2024 Address:[address], [place], [id number] Pcp:Charan Delgadillo, DO Check In:10:03 AM ESTCheck [...] Sprinkle 1 capsule Orally Once a day [place] 3 1000 MG Capsule 1 capsule Orally [...] 1 capsule Orally Once a day Taking [place] 3 1000 MG Capsule 1 capsule Orally [...] 2. O thers Referral To:Physical Therapy [facility] [place] Physical Medicine and Rehabilitation Reason:evaluation and treatment -- see attached order * Procedure Codes: * * Sign off status: Completed Visit Status: C HK (Check Out) true * Provider: Dani Fernandez DPM, MS Date: 07/12/2024 Generated for Simon franks/Laura/Rashiitting on: 06/21/2025 09:34 [...]
--- OUTSIDE RECORDS SUMMARY | 2025-06-21 13:52 | XMS_ITS | Clinical Summary ---
Author Organization [facility] Address [address] [place] [address] Phone Care Team Providers Care Business Analyst Ecommerce Name Role Phone Charan Delgadillo DO Primary Care Provider [phone] Rosalinda Cordova MD Unavailable [phone] Allergies Active Allergy Reactions Criticality Noted Date [...] daily. Active ergocalciferol (Vitamin D-2) 1.25 MG (98260 UT) capsule Take 1 capsule (50,000 Units) [...] 10 mg tabletIndications :Atherosclerotic heart disease of [place] coronary artery without angina pectoris Take 1 [...] Description 11/03/2025 2:30 PM EST Office Visit [facility] [address] [id number] Rosalinda Cordova MD 703 [facility], [address] [place] [address] Health Maintenance Due Date Last Done Comments [...] 10/16/2022, 09/25/2021, Additional history exists Influenza Vaccine (#1) 2025 2, 08/30/2021, 08/30/2019, Additional history exists Colonoscopy 10/06/2033 10/06/2023 Colorectal Cancer Screening 10/06/2033 Zoster Vaccines Completed 01/27/2023, 10/28/2022 HIB Vaccines Aged Out No longer eligi ble based on patient's age to complete this topic HPV Vaccines Aged Out No longer eligi ble based on patient's age to complete this topic Hepatitis A Vaccines Aged Out No long [...] patient's age to complete this topic Insurance [facility] MEDICARE [employer] [place] [employer] [facility] MEDIC[employer] [place] [employer]ARE Care Teams Business Analyst Ecommerce Relationship Specialty Start Date End Date Charan Delgadillo DO PCP - General Family Medicine 02/22/24 Rosalinda Cordova MD 703 [facility] 2, [place] [phone] Consulting Physician Cardiology 02/22/24
--- OUTSIDE RECORDS SUMMARY | 2025-06-21 13:52 | XMS_ITS | Encounter Summary ---
Author Organization [facility] Address [address] [place] [address] Phone Care Team Providers Care Mds Coordinator Name Role Phone Charan Delgadillo DO Primary Care Provider [phone] Charan Delgadillo DO Primary Care Provider [phone] Rosalinda Cordova MD Unavailable [phone] Encounter Details Date Type Department Care Team (Late st Contact Info) Description 11/26/2023 Scanned Document [facility] [address] [place] [phone] Scanning, Generic Provider Social History Tobacco Use [...] Description 11/03/2025 2:30 PM EST Office Visit [facility] 703 [facility] [address] [place] [address] Rosalinda Cordova MD 703 [facility] 2, [address] [place] [address] documented as of this encounter Visit Diagnoses Not on filedocumented in this encounter Care Teams Mds Coordinator Relationship Specialty Start Date End Date Charan Delgadillo DO PCP - General 07/09/20 02/21/24 Charan Delgadillo DO PCP - General Family Medicine 02/22/24 Rosalinda Cordova MD 703 [facility] 2, [place] [address] Consulting Physician Cardiology 02/22/24 documented as of this encounter
--- OUTSIDE RECORDS SUMMARY | 2025-06-21 13:52 | XMS_ITS | Encounter Summary ---
Author Organization [facility] Address [address] [place] [address] Phone Care Team Providers Care Clinical Program Manager Name Role Phone Charan Delgadillo DO Primary Care Provider [phone] Charan Delgadillo DO Primary Care Provider [phone] Rosalinda Cordova MD Unavailable [phone] Encounter Details Date Type Department Care Team (Late st Contact Info) Description 12/30/2023 Scanned Document [facility] [address] [place] [address] Scanning, Generic Provider Social History Tobacco Use [...] Description 11/03/2025 2:30 PM EST Office Visit [facility] [address] [facility] [address] [place] [address] Rosalinda Cordova MD 703 [facility], [address] [place] [address] documented as of this encounter Procedures Procedure Name Priority Date/Time Associated Diagnosis Comments OUTSIDE IMAGING SCAN 12/30/2023 documented in this encounter Results * OUTSIDE IMAGING SCAN (12/30/2023) Anatomical Region Laterality Modality Other Narrative 12/30/2023 Ordered by an unspecified provider. us Generic Provider Scanning OUTSIDE SCAN Final Result documented in this encounter Visit Diagnoses Not on filedocumented in this encounter Care Teams Clinical Program Manager Relationship Specialty Start Date End Date Charan Delgadillo DO PCP - General 07/09/20 02/21/24 Charan Delgadillo DO PCP - General Family Medicine 02/22/24 Rosalinda Cordova MD 703 [facility] 2, [address] [address] Consulting Physician Cardiology 02/22/24 documented as of this encounter
--- OUTSIDE RECORDS SUMMARY | 2025-06-21 13:52 | XMS_ITS | Encounter Summary ---
Author Organization [facility] Address [address] [place] [phone] Phone Care Team Providers Care Transport Nurse Name Role Phone Charan Delgadillo DO Primary Care Provider [phone] Charan Delgadillo DO Primary Care Provider [phone] Rosalinda Cordova MD Unavailable [phone] Encounter Details Date Type Department Care Team (Late st Contact Info) Description 06/19/2020 Orders Only [facility] [address] [place] [address] Conversion, Onbase Social History Tobacco Use Types [...] Description 11/03/2025 2:30 PM EST Office Visit [facility] [address] [address] Rosalinda Cordova MD [address] [facility] [address], [address] [place] [address] Scheduled Orders Name Type Priority Associated Diagnoses Orde r Schedule OUTSIDE LAB SCAN Lab Ordered: 06/19/2020 documented as of this encounter Visit Diagnoses Not on filedocumented in this encounter Care Teams Transport Nurse Relationship Specialty Start Date End Date Charan Delgadillo DO PCP - General 07/09/20 02/21/24 Charan Delgadillo DO PCP - General Family Medicine 02/22/24 Rosalinda Cordova MD 703 [facility] 2, [place] [address] Consulting Physician Cardiology 02/22/24 documented as of this encounter
--- OUTSIDE RECORDS SUMMARY | 2025-06-21 13:52 | XMS_ITS | Encounter Summary ---
Author Organization [facility] Address [address] [place] [phone] Phone Care Team Providers Care Eligibility Technician Name Role Phone Charan Delgadillo DO Primary Care Provider [phone] Charan Delgadillo DO Primary Care Provider [phone] Rosalinda Cordova MD Unavailable [phone] Encounter Details Date Type Department Care Team (Late st Contact Info) Description 03/06/2023 Orders Only [facility] [address] [place] [address] Conversion, Onbase Social History Tobacco Use Types [...] Description 11/03/2025 2:30 PM EST Office Visit [facility] 703 [facility] [address] [place] [address] Rosalinda Cordova MD 703 [facility] 2, [address] [place] [address] Scheduled Orders Name Type Priority Associated Diagnoses Orde r Schedule OUTSIDE LAB SCAN Lab Ordered: 03/06/2023 documented as of this encounter Visit Diagnoses Not on filedocumented in this encounter Care Teams Eligibility Technician Relationship Specialty Start Date End Date Charan Delgadillo DO PCP - General 07/09/20 02/21/24 Charan Delgadillo DO PCP - General Family Medicine 02/22/24 Rosalinda Cordova MD 703 [facility] 2, [place] [address] Consulting Physician Cardiology 02/22/24 documented as of this encounter
--- OUTSIDE RECORDS SUMMARY | 2025-06-21 13:52 | XMS_ITS | Encounter Summary ---
Author Organization [facility] Address [address] [place] [phone] Phone Care Team Providers Care Lean Specialist Name Role Phone Charan Delgadillo DO Primary Care Provider [phone] Charan Delgadillo DO Primary Care Provider [phone] Rosalinda Cordova MD Unavailable [phone] Encounter Details Date Type Department Care Team (Late st Contact Info) Description 04/17/2020 Orders Only [facility] [address] [place] [address] Conversion, Onbase Social History Tobacco Use Types [...] Description 11/03/2025 2:30 PM EST Office Visit [facility] [address] [address] Rosalinda Cordova MD [address] [facility] [address], [address] [place] [address] Scheduled Orders Name Type Priority Associated Diagnoses Orde r Schedule OUTSIDE LAB SCAN Lab Ordered: 04/17/2020 documented as of this encounter Visit Diagnoses Not on filedocumented in this encounter Care Teams Lean Specialist Relationship Specialty Start Date End Date Charan Delgadillo DO PCP - General 07/09/20 02/21/24 Charan Delgadillo DO PCP - General Family Medicine 02/22/24 Rosalinda Cordova MD 703 [facility] 2, [place] [address] Consulting Physician Cardiology 02/22/24 documented as of this encounter
--- OUTSIDE RECORDS SUMMARY | 2025-06-21 13:52 | XMS_ITS | Encounter Summary ---
Author Organization [facility] Address [address] [place] [phone] Phone Care Team Providers Care Technology Methodology Consultant Name Role Phone Charan Delgadillo DO Primary Care Provider [phone] Charan Delgadillo DO Primary Care Provider [phone] Rosalinda Cordova MD Unavailable [phone] Encounter Details Date Type Department Care Team (Late st Contact Info) Description 08/13/2022 Orders Only [facility] [address] [place] [address] Conversion, Onbase Social History Tobacco Use Types [...] Description 11/03/2025 2:30 PM EST Office Visit [facility] 703 [facility] [address] [place] [address] Rosalinda Cordova MD [address] [facility] 2, [address] [place] [address] Scheduled Orders Name Type Priority Associated Diagnoses Orde r Schedule OUTSIDE LAB SCAN Lab Ordered: 08/13/2022 documented as of this encounter Visit Diagnoses Not on filedocumented in this encounter Care Teams Technology Methodology Consultant Relationship Specialty Start Date End Date Charan Delgadillo DO PCP - General 07/09/20 02/21/24 Charan Delgadillo DO PCP - General Family Medicine 02/22/24 Rosalinda Cordova MD [address] [facility] 2, [place] [address] Consulting Physician Cardiology 02/22/24 documented as of this encounter
--- OUTSIDE RECORDS SUMMARY | 2025-06-21 13:52 | XMS_ITS | Clinical Summary ---
Author Organization [facility] Address [address] [place], [place] [id number] Care Team Providers Care Project Engineering Director Name Role Phone Charan Delgadillo DO Primary Care Provider [phone] Allergies Active Allergy Reactions Criticality Noted Date [...] EST) Glucose 316(H) 65 - 100 mg/dL [facility] BUN 15 8 - 25 mg/dL [facility] Creatinine 0.78 0.70 - 1.40 mg/dL [facility] Sodium 135 132 - 148 mmol/L [facility] Potassium 4.4 3.5 - 5.0 mmol/L [facility] Chloride 96(L) 98 - 110 mmol/L [facility] CO2 23 23 - 32 mmol/L [facility] Anion Gap 16(H) 0 - 15 mmol/L [facility] Calcium 11.4(H) 8.5 - 10.5 mg/dL [facility] eGFR- >60 [facility] eGFR-All Other Races >60 . [facility] Comment: eGFR (Estimated GFR) Units [...] EST Dorothy Renteria MD LABORATORY Final Result [facility] [address] [place] [address] from Last 3 Months or Most Recently Relevant to Health Maintenance Insurance [employer] [facility] PPO Care Teams Project Engineering Director Relationship Specialty Start Date End Date Charan Delgadillo DO [address] [place] [address] PCP - General Family Medicine 11/08/12
--- OUTSIDE RECORDS SUMMARY | 2025-06-21 13:52 | XMS_ITS | Encounter Summary ---
Author Organization [facility] Address [address] [place] [phone] Phone Care Team Providers Care Junior Automation Engineer Name Role Phone Charan Delgadillo DO Primary Care Provider [phone] Charan Delgadillo DO Primary Care Provider [phone] Rosalinda Cordova MD Unavailable Encounter Details Date Type Department Care Team (Late st Contact Info) Description 04/30/2022 Orders Only [facility] LEGACY [address] [place] [address] Conversion, Onbase Social History Tobacco Use Types [...] Description 11/03/2025 2:30 PM EST Office Visit [facility] 703 [facility] 250 [place] [address] Rosalinda Cordova MD 703 [facility] 2, [address] [place] [address] Scheduled Orders Name Type Priority Associated Diagnoses Orde r Schedule SLEEP STUDY ORDER - ONBASE SCAN Sleep Center Ordered: 022 documented as of this encounter Visit Diagnoses Not on filedocumented in this encounter Care Teams Junior Automation Engineer Relationship Specialty Start Date End Date Charan Delgadillo DO PCP - General 07/09/20 02/21/24 Charan Delgadillo DO PCP - General Family Medicine 02/22/24 Rosalinda Cordova MD 703 [facility] 2, [place] [address] Consulting Physician Cardiology 02/22/24 documented as of this encounter
--- OUTSIDE RECORDS SUMMARY | 2025-06-21 13:52 | XMS_ITS | Encounter Summary ---
Author Organization [facility] Address [address] [place] [address] Phone Care Team Providers Care Pipe Out Worker Name Role Phone Yeison Delgadilloan Dani BASSETT Primary Care Provider [phone] Rosalinda Cordova MD Unavailable [phone] Encounter Details Date Type Department Care Team (Late st Contact Info) Description 12/08/2024 Scanned Document [facility] [address] [place] [address] Scanning, Generic Provider Social History [...] Description 11/03/2025 2:30 PM EST Office Visit [facility] [address] [address] Rosalinda Cordova MD 703 [facility] 2, [address] [place] [address] documented as of this encounter [...] documented as of this encounter Care Teams Pipe Out Worker Relationship Specialty Start Date End Date Charan Delgadillo DO PCP - General Family Medicine 02/22/24 Rosalinda Cordova MD 703 [facility] 2, [place] [id number] Consulting Physician Cardiology 02/22/24 documented as of this encounter
--- OUTSIDE RECORDS SUMMARY | 2025-06-21 13:52 | XMS_ITS | Encounter Summary ---
Author Organization [facility] Address [address] [place] [address] Phone Care Team Providers Care Welfare Specialist Name Role Phone Yeison Delgadilloan Dani BASSETT Primary Care Provider [phone] Rosalinda Cordova MD Unavailable [phone] Encounter Details Date Type Department Care Team (Late st Contact Info) Description 02/29/[address] [facility] [address] [place] [address] Scanning, Generic Provider Social History [...] Description 11/03/2025 2:30 PM EST Office Visit [facility] [address]03 [facility] 250 [place] [address] Rosalinda Cordova MD 703 [facility] [address], [address] [place] [address] documented as of this encounter Visit Diagnoses Not on filedocumented in this encounter Additional Health Concerns Assessment Noted Time A fall risk assessment has been complete d for the patient 02/22/2024 2:26 PM EDT documented as of this encounter Care Teams Welfare Specialist Relationship Specialty Start Date End Date Charan Delgadillo DO PCP - General Family Medicine 02/22/24 Rosalinda Cordova MD 703 [facility] 2, [place] [address] Consulting Physician Cardiology 02/22/24 documented as of this encounter
--- OUTSIDE RECORDS SUMMARY | 2025-06-21 13:53 | XMS_ITS | Patient Health Record ---
Author Organization [facility] Address [address] [place] [address] Care Team Providers Care Medicaid Service Coordinator Name Role Phone Charan Delgadillo DO Primary Care Provider Acosta [facility] [phone] Allergies Allergen (clinical drug ingredient) Drug/Non Drug Allergy documented on EMR Reaction Allergy Type Onset Date Status erythromycin Erythromycin Unknown Drug Allergy A ctive Results Component Value Reference Range Notes XR Foot 3 Views Bilateral Reviewed date:06/27/2024 07:42:25 AM Interpretation: Performing Lab: Notes/Report: XR foot LAURA min 3V (Not yet reviewed by provider) Interpretation: Performing Lab: Notes/Report: Source Facility: [place] [address] XRay Report Signed Patient: Joy Cobb MR#: [id number] : 1960 Acct:[id number] Age/Sex: 63 / F ADM Date: 06/22/24 Loc: EC Attending Dr: Acosta Fernandez D.P.M. Ordering Physician: Acosta Fernandez D.P.M. Date of Service: 06/22/24 Procedure(s): XR foot LAURA min 3V Accession Number(s): [id number] cc: Acosta Fernandez D.P.M.; Physician,Non-Staff [place] [address] Patient Name: JOY COBB MRN: [id number] date: 1960 Sex: F Assigned Patient Location: EC Current Patient Location: EC Accession/Order Number: [id number] Exam Date: 06/22/2024 09:20 Report Date: 06/22/2024 [...] Signed By: 06/22/24 1042 DD/ 1039 TD/TT: Distribution Spec: [place] [address] XRay Report Signed Patient: Joy Cobb MR#: [id number] : 1960 Acct:[id number] Age/Sex: 63 / F ADM Date: 06/22/24 Loc: EC Attending Dr: Acosta Fernandez D.P.M. Ordering Physician: Acosta Fernandez D.P.M. Date of Service: 06/22/24 Procedure(s): XR david t LAURA min 3V Accession Number(s): [id number] cc: Acosta Fernandez D.P.M.; Physician,Non-Staff [place] [address] Patient Name: JOY COBB MRN: [id number] date: 1960 Sex: F Assigned Patient Location: Current Patient Location: Accession/Order Numb er: [id number] Exam Date: 06/22/2024 09:20 Report Date: 06/22/2024 [...] Signed By: 06/22/24 1042 DD/ 1039 TD/TT: Distribution Spec: Reason For Referral Reason evaluation and treat ment -- see attached order Diagnosis 1 Charcot's joint of l eft foot (M14.672) Diagnosis 2 Charcot's joint, rig ht ankle and foot (M14.671) Referral Organization [facility] (PODIATRY) Referring Provider First Name Acosta Referring Provider Last Name Rebecca Referring Provider Speciality Podiatry Referred Provider [place], Physical Therapy Referred Provider Specialty Physical Med [...] Once a day for 30 day(s) Active [place] 3 1000 MG 1 capsule Orally Onc [...] Problem Status W/U Status Risk Notes Problem [id number] 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.621) Active confirmed Problem 388750980 Ingrowing nail (L60.0) Active confirmed Problem 74873220521967763 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) Active confirmed Problem 273631901 Charcot's joint, right ankle and foot (M14.671) Active confirmed Problem 145733787 Primary osteoarthritis, left ankle and foot (M19.072) Active confirmed Problem 552688246 Other hammer toe (s) (acquired), left foot (M20.42) Active confirmed Problem 433512399 Other specified acquired deformities of right lower leg (M21.861) Active confirmed Problem 53658312191190487 Pain in right ankle and joints of right foot (M25.571) Active confirmed Problem 404072276 Pain in left ank le and joints of left foot (M25.572) Active confirmed Problem 34073056613103313 Pain in right foot (M79.671) Active confirmed Problem 228993267063156 Pain in left david t (M79.672) Active confirmed Problem 247966046 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) Active confirmed Problem 68107086 Pain due to inte rnal orthopedic prosthetic devices, implants and grafts, initial encounter (T84.84XA) Active confirmed Problem Hypertension (93211585) HTN (hypertension) (I10) Active confirmed Problem Diabetic nephropathy (693089206) Diabetic nephropathy (E11.21) Active confirmed Problem Heart disease (26477885) Heart disease (I51.9) Active confirmed Problem 364280471 Charcot's joint of left foot (M14.672) Active confirmed Problem 726603992 Postoperative wo und dehiscence, subsequent encounter (T81.31XD) Active confirmed Problem Hypercholesterolemia (90428802) Hypercholesterolemia (E78.00) Active confirmed Problem 765437990 Charcot's joint of right foot (M14.671) Active confirmed Problem 089426738 Acquired abducti on deformity of left foot (M21.6X2) Active confirmed Problem Diabetes mellitus (15065147) Diabetes mellitus (E11.9) Active confirmed Vital Signs Heart Rate 91 /min 07/12/2024 Temperature 97.3 degrees Fahrenheit 07/12/2024 Oximetry 97 % 07/12/2024 Height 67 in 07/12/2024 Weight 235 lbs 07/12/2024 BMI 36.8 kg/m2 07/12/2024 Encounters Encounter Location Date Provider Diagnosis [facility] (PODIATRY) [address] [place] [address] [address] [place] [address] 06/22/2024 Acosta Fernandez Pseudarthrosis after fusion or arthrodesis M96.0 ; Charcot's joint of left foot M14.672 ; Ingrowing nail L60.0 ; Charcot's joint, right ankle and foot M14.671 ; Cutaneous abscess of left foot L02.612 and Pain in right foot M79.671 [facility] (PODIATRY) [address] [place] [address] [address] [place] [address] 07/12/2024 Acosta Fernandez Cutaneous abscess of left [...] Insured Coverage Start Date Coverage End Date [facility] [address] [place], [place] [id number] Joy Cobb Self - patient is the [...] Diabetes mellitus E11.9 Surgical History Surgery Date(Month/Year) back injections removal deep implanted hardware left david t 04/13/2023 LT midfoot fustion with elizabeth ective osteotomy, talonavicular/subtaler joint fustions, harvest of distal tibial bone graft, gastrocnemius recession/exostectomy Dr Fernandez 12/29/2022 Heart Stents 03/27/2022 LT Ankle exploration/bx Dr Seymour 2017 Lumbar Spine Fusion Cervical Spine Fusion Parathyroidectomy Hospitalization History Reason Date(Month/Year) see above
--- OUTSIDE RECORDS SUMMARY | 2025-06-21 13:53 | XMS_ITS | Encounter Summary ---
Author Organization [facility] Address [address] [place] [phone] Phone Care Team Providers Care Welding Inspector Name Role Phone Charan Delgadillo DO Primary Care Provider [phone] Charan Delgadillo DO Primary Care Provider [phone] Rosalinda Cordova MD Unavailable [phone] Encounter Details Date Type Department Care Team (Late st Contact Info) Description 03/25/2022 Orders Only [facility] LEGACY [address] [place] [address] Conversion, Onbase Social History Tobacco Use Types [...] [facility] [address] [address] Rosalinda Cordova MD 703 [facility] 2, [address] [place] [address] Scheduled Orders Name Type Priority Associated Diagnoses Orde r Schedule OUTSIDE LAB SCAN Lab Ordered: 03/25/2022 OUTSIDE LAB SCAN Lab Ordered: 03/25/2022 OUTSIDE LAB SCAN Lab Ordered: 03/25/2022 documented as of this encounter Visit Diagnoses Not on filedocumented in this encounter Care Teams Welding Inspector Relationship Specialty Start Date End Date Charan Delgadillo DO PCP - General 07/09/20 02/21/24 Charan Delgadillo DO PCP - General Family Medicine 02/22/24 Rosalinda Cordova MD 3 [facility] 2, [address] [address] Consulting Physician Cardiology 02/22/24 documented as of this encounter
--- OUTSIDE RECORDS SUMMARY | 2025-06-21 13:53 | XMS_ITS | Encounter Summary ---
Author Organization [facility] Address [address] [place] [address] Phone Care Team Providers Care Manager Front Name Role Phone Charan Delgadillo DO Primary Care Provider [phone] Charan Delgadillo DO Primary Care Provider [phone] Rosalinda Cordova MD Unavailable [phone] Encounter Details Date Type Department Care Team (Late st Contact Info) Description 11/19/2021 Orders Only [facility] LEGACY [address] [place] [address] Conversion, Onbase Social History Tobacco Use Types [...] Description 11/03/2025 2:30 PM EST Office Visit [facility] 703 [facility] 250 [place] [address] Rosalinda Cordova MD 703 [facility] 2, [address] [place] [address] Scheduled Orders Name Type Priority Associated Diagnoses Orde r Schedule OUTSIDE LAB SCAN Lab Ordered: 11/19/2021 documented as of this encounter Visit Diagnoses Not on filedocumented in this encounter Care Teams Manager Front Relationship Specialty Start Date End Date Charan Delgadillo DO PCP - General 07/09/20 02/21/24 Charan Delgadillo DO PCP - General Family Medicine 02/22/24 Rosalinda Cordova MD 703 [facility] 2, [place] [address] Consulting Physician Cardiology 02/22/24 documented as of this encounter
--- OUTSIDE RECORDS SUMMARY | 2025-06-21 13:53 | XMS_ITS | Encounter Summary ---
Author Organization [facility] Address [address] [place] [address] Phone Care Team Providers Care Surface Ship Usw Supervisor Name Role Phone Charan Delgadillo DO Primary Care Provider [phone] Charan Delgadillo DO Primary Care Provider [phone] Rosalinda Cordova MD Unavailable [phone] Encounter Details Date Type Department Care Team (Late Contact Info) Description 02/19/2022 Orders Only [facility] LEGACY [address] [place] [address] Conversion, Onbase Social History Tobacco Use Types [...] Office Visit [facility] 703 [facility] [address] [place] [address] Rosalinda Cordova MD 703 [facility] 2, [address] [place] [address] Scheduled Orders Name Type Priority Associated Diagnoses Orde r Schedule OUTSIDE LAB SCAN Lab Ordered: 02/19/2022 documented as of this encounter Visit Diagnoses Not on filedocumented in this encounter Care Teams Surface Ship Usw Supervisor Relationship Specialty Start Date End Date Charan Delgadillo DO PCP - General 07/09/20 02/21/24 Charan Delgadillo DO PCP - General Family Medicine 02/22/24 Rosalinda Cordova MD 703 [facility] 2, [place] [phone] Consulting Physician Cardiology 02/22/24 documented as of this encounter
--- OUTSIDE RECORDS SUMMARY | 2025-06-21 13:53 | XMS_ITS | Encounter Summary ---
Author Organization [facility] Address [address] [place] [address] Phone Care Team Providers Care Bond Writer Name Role Phone Charan Delgadillo DO Primary Care Provider [phone] Charan Delgadillo DO Primary Care Provider [phone] Rosalinda Cordova MD Unavailable [phone] Encounter Details Date Type Department Care Team (Late st Contact Info) Description 10/22/2021 Orders Only [facility] LEGACY [address] [place] [address] Conversion, Onbase Social History Tobacco Use Types [...] Description 11/03/2025 2:30 PM EST Office Visit [facility] [address]03 [facility] 250 [place] [address] Rosalinda Cordova MD 703 [facility] 2, [address] [place] [address] Scheduled Orders Name Type Priority Associated Diagnoses Orde r Schedule SLEEP STUDY ORDER - ONBASE SCAN Sleep Center Ordered: 021 documented as of this encounter Visit Diagnoses Not on filedocumented in this encounter Care Teams Bond Writer Relationship Specialty Start Date End Date Charan Delgadillo DO PCP - General 07/09/20 02/21/24 Charan Delgadillo DO PCP - General Family Medicine 02/22/24 Rosalinda Cordova MD 703 [facility] 2, [place] [address] Consulting Physician Cardiology 02/22/24 documented as of this encounter
== END 2025-06-21 13:51 | disposition home or self-care (01) ==
LOC: WC 13:50
PROVIDERS: Visit Provider Podiatrist Foot & Ankle Surgery
DX: E11.621 Type 2 diabetes mellitus with foot ulcer (principal); L97.422 Non-pressure chronic ulcer of left heel and midfoot with fat layer exposed; L97.522 Non-pressure chronic ulcer of other part of left foot with fat layer exposed
CPT/HCPCS: 11043

== ENCOUNTER 2025-06-28 09:00 | Outpatient (OUT) | payer MEDICARE, SELFPAY ==
--- OUTSIDE RECORDS SUMMARY | 2024-02-16 09:30 | XMS_ITS ---
Author Organization The [facility] in [place] Address [address] [place] [address] Care Team Providers Care Photographer Lithographic Name Role Phone Charan Delgadillo DO Primary Care Provider Torres Cid [phone] Allergies Allergen (clinical drug ingredient) Drug/Non Drug Allergy documented on EMR Reaction Allergy Type Onset Date Status erythromycin Erythromycin Unknown Drug Allergy A ctive Results Component Value Reference Range Notes XR Foot LT (3 views) * Reviewed date:02/22/2024 03:18:33 PM Interpretation: Performing Lab: Notes/Report: REASON FOR VISIT 2 month f/u Medications Medication SIG (Take, Route, Frequency, Duration) Notes Start Date End Date Status Ozone 3 1000 MG 1 capsule Orally Onc e a day for 30 day(s) Active Metoprolol Succinate 200 MG 1 capsule Orally Once a day for 30 day(s) Active Vitamin D3 50 MCG (1999 UT) 1 capsule Orally Once a day for 90 days 06/10/2023 Active Mag Glycinate 100 MG as directed Orally Active Lyrica 150 MG 1 capsule Orally Onc e a day Active Brooke-C - as directed Orally A ctive Brilinta 90 MG 1 tablet Orally Twic e a day for 30 day(s) Active HumaLOG KwikPen 100 UNIT/ML as directed Subcutaneous Act jenna Fosamax 70 MG 1 tablet 30 minutes before the first food, beverage or medicine of the day with plain water Orally for 30 day(s) Active Lyrica 300 MG 1 capsule in the sirisha orlando 1 to 3 hours before bedtime Orally Once a day Active Allopurinol 100 MG 1 tablet Orally Once a day for 30 day(s) Active Benicar 40 MG 1 tablet Orally Once a day for 30 day(s) Active Aspirin 81 MG 1 tablet Orally Once a day for 30 day(s) Active Social History Tobacco Use: Social History Observation Description Date Details (start date - stop date) Never Smoker NA - NA Tobacco Use/Smoking Question Answer Notes Patient is a nonsmoker Section Notes: Unknown if smoker Problems Problem Type SNOMED Code ICD Code Onset Dates Problem Status W/U Status Risk Notes Problem [id number] Pseudarthrosis after fusion or arthrodesis (M96.0) Active confirmed Vital Signs Weight 239 lbs 02/16/2024 Height 67 in 02/16/2024 Temperature 97.9 degrees Fahrenheit 02/16/20 BMI 37.43 kg/m2 02/16/2024 Encounters Encounter Location Date Provider Diagnosis [facility] (PODIATRY) [address] [place] [address] [address] [place] [address] 02/16/2024 Torres Fernandez Charcot's joint of left foot M14.672 and Pseudarthrosis after fusion or arthrodesis M96.0 Assessments Encounter Date Diagnosis (ICD Code) Assessment Notes Treatment Notes Treatment Clinical Notes Section Notes 02/16/2024 Charcot's joint of left foot (ICD-10 - M14.672) patient seen and evaluated. Patient is doing well from the perspective however having some back issues as well as family medical problems associated with her parents. She has been ambulating in sneakers and diabetic inserts and checks her feet twice daily. She is no callus formation over the bony prominence on the plantar lateral foot. I stressed that the patient remains at high risk for increased deformity or development of ulceration. However, at the current moment she is doing satisfactorily therefore continue to monitor with weightbearing foot x-rays every 3-4 months 02/16/2024 Pseudarthrosis after fusion or arthrodesis (ICD-10 - M96.0) continue on stimulator as directed as well as vitamin D supplementation Plan Of Treatment Treatment Notes Assessment Notes Charcot's joint of left foot patient seen and evaluated. Patient is doing well from the perspective however having some back issues as well as family medical problems associated with her parents. She has been ambulating in sneakers and diabetic inserts and checks her feet twice daily. She is no callus formation over the bony prominence on the plantar lateral foot. I stressed that the patient remains at high risk for increased deformity or development of ulceration. However, at the current moment she is doing satisfactorily therefore continue to monitor with weightbearing foot x-rays every 3-4 months Pseudarthrosis after fusion or arthrodes is continue on stimulator as directed as well as vitamin D supplementation Progress Notes * Joy COBBDOB:1960 (63 yo F)Acc No.[id number]:02/16/2024 Follow Up Patient: Joy Huertas Provider: Dani Fernandez DPM, MS :1960 A ge:63 Y S ex:Female Date:02/16/2024 Address:[address] [place] [address], [place], [id number] Pcp:Charan Delgadillo, DO Check In:01:12 PM ESTCheck O ut:02:03 PM EST Subjective: * Chief Complaints: * 2 month f/u * HPI: G eneral: Patient returns to clinic today for follow up. Denies foot pain. Has new orthofeet shoes with inserts that are working well for her. Currently getting treatment for back pain with Dr. Ortiz.She is doing well with her foot. * ROS: G eneral/Constitutional: Chills d enies. F ever d enies. W eight gain?denies. W eight loss d enies. S kin: Skin Ulcers d enies. S kin lesion(s) d enies. ? C ardiovascular: Difficulty breathing on exertion d enies. L eg cramps?denies. E shaun d enies. C hest pain d enies. R espiratory: Difficulty breathing d enies. D yspnea d enies.?Cough d enies. G astrointestinal: Diarrhea d enies. N ausea d enies. V omiting?denies. M usculoskeletal: Bone/Joint Symptoms d enies. C fpc Pain d enies.?Leg cramps d enies. N eurologic: Numbness d enies. T ingling d enies . G ait abnormality d enies. ? H ematology: Anemia D enies. E asy bruising d enies. ? A ll Other Systems: Review of Systems (ROS) S ee HPI for details,All others negative except those mentioned in HPI. * Active Problem List M25.571 Pain in right ankle and joints of right foot Modified On:03/25/2023 Status:confirmed M25.572 Pain in left ankle a nd joints of left foot Modified On:08/05/2023 Status:confirmed M79.671 Pain in right foot Modified On:03/25/2023 Status:confirmed M79.672 Pain in left foot Modified On:10/28/2023 Status:confirmed M14.672 Charcot's joint of l eft foot Modified On:02/16/2024 Status:confirmed M21.861 Other specified acqu ired deformities of right lower leg Modified On:03/25/2023 Status:confirmed M21.6X2 Acquired abduction d eformity of left foot Modified On:10/28/2023 Status:confirmed M14.671 Charcot's joint of r ight foot Modified On:06/10/2023 Status:confirmed E11.21 Diabetic nephropathy Modified On:06/10/2023 Status:confirmed E78.00 Hypercholesterolemia Modified On:01/22/2023 Status:confirmed I10 HTN (hypertension) Modified On:01/22/2023 Status:confirmed I51.9 Heart disease Modified On:01/22/2023 Status:confirmed E11.9 Diabetes mellitus Modified On:01/22/2023 Status:confirmed T81.31XD Postoperative wound dehiscence, subsequent encounter Modified On:04/28/2023 Status:confirmed M19.072 Primary osteoarthrit is, left ankle and foot Modified On:06/10/2023 Status:confirmed T84.84XA Pain due to internal orthopedic prosthetic devices, implants and grafts, initial encounter Modified On:04/21/2023 Status:confirmed M20.42 Other hammer toe(s) (acquired), left foot Modified On:08/05/2023 Status:confirmed E11.621 Type 2 diabetes wicho itus with foot ulcer Modified On:08/05/2023 Status:confirmed 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 Modified On:08/05/2023W/U Status:confirmed M96.0 Pseudarthrosis after fusion or arthrodesis Modified On:02/16/2024W/U Status:confirmed * Medical History: * Surgical History: P arathyroidectomy Cervical Spine Fusion Lumbar Spine Fusion LT Ankle exploration/bx Dr Seymour 2018Heart Stents 03/27/2022LT midfoot fustion with corrective osteotomy, talonavicular/subtaler joint fustions, harvest of distal tibial bone graft, gastrocnemius recession/exostectomy Dr Fernandez 12/29/2022removal deep implanted hardware left foot 04/13/2023ack injections * Hospitalization/Major Diagno stic Procedure: s ee above * Family History: F ather: alive. M other: alive. * Social History: T obacco Use: T obacco Use/Smoking P atient is a n onsmoker U nknown if smoker. * Medications: T akingAllopurinol 100 MG Tablet 1 tablet Orally Once a dayAspirin 81 MG Tablet Chewable 1 tablet Orally Once a dayBenicar(Olmesartan Medoxomil) 40 MG Tablet 1 tablet Orally Once a dayBrilinta(Ticagrelor) 90 MG Tablet 1 tablet Orally Twice a dayEster-C(Bioflavonoid Products) - Tablet as directed Orally Fosamax(Alendronate Sodium) 70 MG Tablet 1 tablet 30 minutes before the first food, beverage or medicine of the day with plain water Orally HumaLOG KwikPen(Insulin Lispro (1 Unit Dial)) 100 UNIT/ML Solution Pen-injector as directed Subcutaneous Lyrica(Pregabalin) 300 MG Capsule 1 capsule in the evening 1 to 3 hours before bedtime Orally Once a dayLyrica(Pregabalin) 150 MG Capsule 1 capsule Orally Once a dayMag Glycinate 100 MG Tablet as directed Orally Metoprolol Succinate 200 MG Capsule ER 24 Hour Sprinkle 1 capsule Orally Once a dayOmega 3 1000 MG Capsule 1 capsule Orally Once a dayVitamin D3(Cholecalciferol) 50 MCG (1999) Capsule 1 capsule Orally Once a dayMedication List reviewed and reconciled with the patientTaking Allopurinol 100 MG Tablet 1 tablet Orally Once a dayTaking Aspirin 81 MG Tablet Chewable 1 tablet Orally Once a dayTaking Benicar(Olmesartan Medoxomil) 40 MG Tablet 1 tablet Orally Once a dayTaking Brilinta(Ticagrelor) 90 MG Tablet 1 tablet Orally Twice a dayTaking Brooke-C(Bioflavonoid Products) - Tablet as directed Orally Taking Fosamax(Alendronate Sodium) 70 MG Tablet 1 tablet 30 minutes before the first food, beverage or medicine of the day with plain water Orally Taking HumaLOG KwikPen(Insulin Lispro (1 Unit Dial)) 100 UNIT/ML Solution Pen-injector as directed Subcutaneous Taking Lyrica(Pregabalin) 300 MG Capsule 1 capsule in the evening 1 to 3 hours before bedtime Orally Once a dayTaking Lyrica(Pregabalin) 150 MG Capsule 1 capsule Orally Once a dayTaking Mag Glycinate 100 MG Tablet as directed Orally Taking Metoprolol Succinate 200 MG Capsule ER 24 Hour Sprinkle 1 capsule Orally Once a dayTaking Ozone 3 1000 MG Capsule 1 capsule Orally Once a dayTaking Vitamin D3(Cholecalciferol) 50 MCG (1999 UT) Capsule 1 capsule Orally Once a dayMedication List reviewed and reconciled with the patient * Allergies: E stefan[Allergies Verified] Objective: * Vitals: W t:239 lbs, Ht: 67 in, Temp:97.9 F, BMI:37.43 Index, Pain scale:3 1-10, Ht-cm: 170.18 cm, Wt-k.41 kg. * Examination: P odiatry Examination: SKIN: s kin intact, n o sign of infection. MUSCULOSKELETAL: n o pain on palpation. mild prominence beneath the cuboid. Medial column remained stable with five degrees of ankle joint dorsiflexion and forty-five degrees of plantarflexion from the ankle. The lateral column has approximately fifteen degrees of sagittal plane range of motion.. NEUROLOGICAL: a bsent protective and vibratory sensation.? VASCULAR: P edal pulses palpable, C apillaryrefill is brisk to toe, D igitalhair absent.. X -rays: x-rays were obtained & reviewed in my office. X-rays were compared to those obtained on 10/28/23. There is no gross change in alignment. Hardware remains stable with slight periprosthetic loosening which is also unchanged. 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 Assessment: * Assessment: 1. P seudarthrosis after fusion or arthrodesis - M96.0 2 . C harcot's joint of left foot - M14.672 Plan: * Treatment: 2. C harcot's joint of left foot I maging: XR Foot LT (3 views) * Notes: patient seen and evaluated. Patient is doing well from the perspective however having some back issues as well as family medical problems associated with her parents. She has been ambulating in sneakers and diabetic inserts and checks her feet twice daily. She is no callus formation over the bony prominence on the plantar lateral foot. I stressed that the patient remains at high risk for increased deformity or development of ulceration. However, at the current moment she is doing satisfactorily therefore continue to monitor with weightbearing foot x-rays every 3-4 months. * Procedure Codes: * * Sign off status: Completed Visit Status: C HK (Check Out) true * Provider: Dani Fernandez DPM, MS Date: 0 02/16/2024 Generated for Simon franks/Laura/Rashiitting on: 0 06/28/2025 09:12 AM EDT History and Physical Notes * HPI (History of Present Illness) Category Sub-Category Detail Notes Category Not es General Patient returns to clinic today for follow up. Denies foot pain. Has new orthofeet shoes with inserts that are working well for her. Currently getting treatment for back pain with Dr. Ortiz.She is doing well with her foot Examination Category Sub-Category Detail Notes Category Not es Podiatry Examination SKIN: skin intact, no sign of infection X-ray s: x-rays were obtained & reviewed in my office. X-rays were compared to those obtained on 10/28/23. There is no gross change in alignment. Hardware remains stable with slight periprosthetic loosening which is also unchanged. 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 mild prominence beneath the cuboid. Medial column remained stable with five degrees of ankle joint dorsiflexion and forty-five degrees of plantarflexion from the ankle. The lateral column has approximately fifteen degrees of sagittal plane range of motion. NEUROLOGICAL: absent protective an d vibratory sensation VASCULAR: Pedal pulses palpable, Capillary refill is brisk to toe, Digital hair absent.
--- OUTSIDE RECORDS SUMMARY | 2024-06-22 05:30 | XMS_ITS ---
Author Organization [facility] in [place] Address [address] [place] [address] Care Team Providers Care Conveyor Feeder Offbearer Name Role Phone Charan Delgadillo DO Primary Care Provider Torres Cid [phone] Allergies Allergen (clinical drug ingredient) Drug/Non Drug [...] Once a day for 30 day(s) Active [place] 3 1000 MG 1 capsule Orally Onc [...] Lyrica 300 MG 1 capsule in the sirihsa orlando 1 to 3 hours before bedtime [...] Problem Status W/U Status Risk Notes Problem 254785011 Charcot's joint, right ankle and foot (M14.671) Active confirmed Problem 887438204 Ingrowing nail (L60.0) Active confirmed Vital Signs Weight 235 lbs 06/22/2024 Height 67 in 06/22/2024 Temperature 98.2 degrees Fahrenheit 06/22/20 Heart Rate 87 /min 06/22/2024 BMI 36.8 kg/m2 06/22/2024 Oximetry 97 % 06/22/2024 Encounters Encounter Location Date Provider Diagnosis [facility] (PODIATRY) [address] [place] [address] [place] [address] 06/22/2024 Torres Fernandez Pseudarthrosis after fusion or [...] Notes * Joy COBBDOB:1960 (63 yo F)Acc No.[id number]:06/22/2024 Follow Up Patient: Joy CHAVEZ Provider: Dani Fernandez DPM MS :1960 A ge:63 Y S ex:Female Date:06/22/2024 Address:[address] [place] [address] [address], [id number] Pcp:Charan Delgadillo, DO Check In:09:16 AM ESTCheck [...] Sprinkle 1 capsule Orally Once a day [place] 3 1000 MG Capsule 1 capsule Orally [...] 1 capsule Orally Once a day Taking [place] 3 1000 MG Capsule 1 capsule Orally [...] Date: 06/22/2024 Generated for Simon franks/Laura/Rashiitting on: 06/28/2025 09:12 AM EDT History and Physical [...]
--- OUTSIDE RECORDS SUMMARY | 2024-07-12 06:15 | XMS_ITS ---
Author Organization [facility] [place] Address [address] [place] [address] Care Team Providers Care Aircraft Instrument Tester Name Role Phone Charan Delgadillo DO Primary Care Provider Torres Cid [phone] Allergies Allergen (clinical drug ingredient) Drug/Non Drug Allergy documented on EMR Reaction Allergy Type Onset Date Status erythromycin Erythromycin Unknown Drug Allergy A ctive Reason For Referral Reason evaluation and treat ment -- see attached order Diagnosis 1 Charcot's joint of l eft foot (M14.672) Diagnosis 2 Charcot's joint, rig ht ankle and foot (M14.671) Referral Organization [facility] (PODIATRY) Referring Provider First Name Torres Referring [...] a day for 90 days 06/10/2023 Active [place] 3 1000 MG 1 capsule Orally Onc [...] Encounter Location Date Provider Diagnosis [facility] (PODIATRY) [address] [place] [address] [place] [address] 07/12/2024 [facility] Cutaneous abscess of left foot L02.612 Assessments [...] -- see attached order, Physical Therapy [facility] [place] Progress Notes * Tracie COBB:1960 (63 yo F)Acc No.[id number]:07/12/2024 Follow Up Patient: Joy CHAVEZ Provider: Dani Fernandez DPM, MS :1960 A ge:63 Y S ex:Female Date:07/12/2024 Address:[address], [place], [id number] Pcp:Charan Delgadillo, DO Check In:10:03 AM ESTCheck [...] Sprinkle 1 capsule Orally Once a day [place] 3 1000 MG Capsule 1 capsule Orally [...] 1 capsule Orally Once a day Taking [place] 3 1000 MG Capsule 1 capsule Orally [...] 2. O thers Referral To:Physical Therapy [facility] [place] Physical Medicine and Rehabilitation Reason:evaluation and treatment -- see attached order * Procedure Codes: * * Sign off status: Completed Visit Status: C HK (Check Out) true * Provider: Dani Fernandez DPM, MS Date: 07/12/2024 Generated for Simon franks/Laura/Rashiitting on: 06/28/2025 09:12 [...]
--- OUTSIDE RECORDS SUMMARY | 2025-06-28 09:12 | XMS_ITS | Encounter Summary ---
Author Organization [facility] Address [address] [place] [address] Phone Care Team Providers Care Health Care Marketing Specialist Name Role Phone Charan Delgadillo DO Primary Care Provider [phone] Charan Delgadillo DO Primary Care Provider [phone] Rosalinda Cordova MD Unavailable [phone] Encounter Details Date Type Department Care Team (Late st Contact Info) Description 08/13/2022 Orders Only [facility] LEGACY [address] [place] [address] Conversion, Onbase Social History Tobacco Use Types [...] Description 11/03/2025 2:30 PM EST Office Visit [facility] 703 [facility] 250 [place] [address] Rosalinda Cordova MD 703 [facility] 2, [address] [place] [address] Scheduled Orders Name Type Priority Associated Diagnoses Orde r Schedule OUTSIDE LAB SCAN Lab Ordered: 08/13/2022 documented as of this encounter Visit Diagnoses Not on filedocumented in this encounter Care Teams Health Care Marketing Specialist Relationship Specialty Start Date End Date Charan Delgadillo DO PCP - General 07/09/20 02/21/24 Charan Delgadillo DO PCP - General Family Medicine 02/22/24 Rosalinda Cordova MD 703 [facility] 2, [place] [address] Consulting Physician Cardiology 02/22/24 documented as of this encounter
--- OUTSIDE RECORDS SUMMARY | 2025-06-28 09:12 | XMS_ITS | Clinical Summary ---
Author Organization [facility] Address [address] [place], [place] [address] Care Team Providers Care Laundry Helper Name Role Phone Charan Delgadillo DO Primary Care Provider [phone] Allergies Active Allergy Reactions Criticality Noted Date [...] EST) Glucose 316(H) 65 - 100 mg/dL [facility] BUN 15 8 - 25 mg/dL [facility] Creatinine 0.78 0.70 - 1.40 mg/dL [facility] Sodium 135 132 - 148 mmol/L [facility] Potassium 4.4 3.5 - 5.0 mmol/L [facility] Chloride 96(L) 98 - 110 mmol/L [facility] CO2 23 23 - 32 mmol/L [facility] Anion Gap 16(H) 0 - 15 mmol/L [facility] Calcium 11.4(H) 8.5 - 10.5 mg/dL [facility] eGFR- >60 [facility] eGFR-All Other Races >60 . [facility] Comment: eGFR (Estimated GFR) Units [...] EST Dorothy Renteria MD LABORATORY Final Result [facility] [address] [place] [address] from Last 3 Months or Most Recently Relevant to Health Maintenance Insurance [facility] Care Teams Laundry Helper Relationship Specialty Start Date End Date Charan Delgadillo DO [address] [place] [address] PCP - General Family Medicine 11/08/12
--- OUTSIDE RECORDS SUMMARY | 2025-06-28 09:12 | XMS_ITS | Encounter Summary ---
Author Organization [facility] Address [address] [place] [phone] Phone Care Team Providers Care Editor Producer Name Role Phone Charan Delgadillo DO Primary Care Provider [phone] Charan Delgadillo DO Primary Care Provider [phone] Rosalinda Cordova MD Unavailable [phone] Encounter Details Date Type Department Care Team (Late st Contact Info) Description 04/30/2022 Orders Only [facility] LEGACY [address] [place] [address] Conversion, Onbase Social History Tobacco Use Types [...] Description 11/03/2025 2:30 PM EST Office Visit [facility] 703 [facility] 250 [place] [address] Rosalinda Cordova MD 703 [facility] 2, [address] [place] [address] Scheduled Orders Name Type Priority Associated Diagnoses Orde r Schedule SLEEP STUDY ORDER - ONBASE SCAN Sleep Center Ordered: 022 documented as of this encounter Visit Diagnoses Not on filedocumented in this encounter Care Teams Editor Producer Relationship Specialty Start Date End Date Charan Delgadillo DO PCP - General 07/09/20 02/21/24 Charan Delgadillo DO PCP - General Family Medicine 02/22/24 Rosalinda Cordova MD 703 [facility] 2, [place] [address] Consulting Physician Cardiology 02/22/24 documented as of this encounter
--- OUTSIDE RECORDS SUMMARY | 2025-06-28 09:12 | XMS_ITS | Clinical Summary ---
Author Organization [facility] Address [address] [place] [address] Phone Care Team Providers Care Flight Operations Coordinator Name Role Phone Charan Delgadillo DO Primary Care Provider [phone] Rosalinda Cordova MD Unavailable [phone] Allergies Active Allergy Reactions Criticality Noted Date [...] daily. 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 Take 1 [...] [facility] [address] [address] Rosalinda Cordova MD 703 [facility] 2, [address] [place] [address] Health Maintenance Due Date Last Done Comments [...] patient's age to complete this topic Insurance [facility] [employer] MEDICARE [employer] [place] MEDICARE [facility] [employer] [place] MEDICARE Care Teams Flight Operations Coordinator Relationship Specialty Start Date End Date Charan Delgadillo DO PCP - General Family Medicine 02/22/24 Rosalinda Cordova MD 703 [facility] 2, [place] [address] Consulting Physician Cardiology 02/22/24
--- OUTSIDE RECORDS SUMMARY | 2025-06-28 09:12 | XMS_ITS | Encounter Summary ---
Author Organization [facility] Address [address] [place] [phone] Phone Care Team Providers Care Clinical Pharmacy Technician Name Role Phone Charan Delgadillo DO Primary Care Provider [phone] Charan Delgadillo DO Primary Care Provider [phone] Rosalinda Cordova MD Unavailable [phone] Encounter Details Date Type Department Care Team (Late st Contact Info) Description 03/06/[address] [facility] LEGACY [address] [place] [address] Conversion, Onbase Social History Tobacco Use Types [...] 2:30 PM EST Office Visit [facility] 703 [facility] 250 [place] [address] Rosalinda Cordova MD 703 [facility] 2, [address] [place] [address] Scheduled Orders Name Type Priority Associated Diagnoses Orde r Schedule OUTSIDE LAB SCAN Lab Ordered: 03/06/2023 documented as of this encounter Visit Diagnoses Not on filedocumented in this encounter Care Teams Clinical Pharmacy Technician Relationship Specialty Start Date End Date Charan Delgadillo DO PCP - General 07/09/20 02/21/24 Charan Delgadillo DO PCP - General Family Medicine 02/22/24 Rosalinda Cordova MD 703 [facility] 2, [place] [address] Consulting Physician Cardiology 02/22/24 documented as of this encounter
--- OUTSIDE RECORDS SUMMARY | 2025-06-28 09:12 | XMS_ITS | Encounter Summary ---
Author Organization [facility] Address [address] [place] [address] Phone Care Team Providers Care Finishing Pan Operator Name Role Phone Charan Delgadillo DO Primary Care Provider [phone] Charan Delgadillo DO Primary Care Provider [phone] Rosalinda Cordova MD Unavailable [phone] Encounter Details Date Type Department Care Team (Late st Contact Info) Description 11/26/2023 Scanned Document [facility] [address] [place] [id number] Scanning, Generic Provider Social History Tobacco Use [...] Description 11/03/2025 2:30 PM EST Office Visit [facility] 703 [facility] [address] [place] [address] Rosalinda Codrova MD 703 [facility] 2, [address] [place] [address] documented as of this encounter Visit Diagnoses Not on filedocumented in this encounter Care Teams Finishing Pan Operator Relationship Specialty Start Date End Date Charan Delgadillo DO PCP - General 07/09/20 02/21/24 Charan Delgadillo DO PCP - General Family Medicine 02/22/24 Rosalinda Cordova MD 703 [facility] 2, [place] [address] Consulting Physician Cardiology 02/22/24 documented as of this encounter
--- OUTSIDE RECORDS SUMMARY | 2025-06-28 09:13 | XMS_ITS | Encounter Summary ---
Author Organization [facility] Address [address] [place] [phone] Phone Care Team Providers Care Cnc Mechanic Name Role Phone Charan Delgadillo DO Primary Care Provider [phone] Charan Delgadillo DO Primary Care Provider [phone] Rosalinda Cordova MD Unavailable [phone] Encounter Details Date Type Department Care Team (Late st Contact Info) Description 03/25/2022 Orders Only [email or web address] LEGACY [address] [place] [address] Conversion, Onbase Social History Tobacco Use Types [...] PM EST Office Visit [facility] [address] [address] Rosalinda Cordova MD 703 [facility] 2, [address] [place] [address] Scheduled Orders Name Type Priority Associated Diagnoses Orde r Schedule OUTSIDE LAB SCAN Lab Ordered: 03/25/2022 OUTSIDE LAB SCAN Lab Ordered: 03/25/2022 OUTSIDE LAB SCAN Lab Ordered: 03/25/2022 documented as of this encounter Visit Diagnoses Not on filedocumented in this encounter Care Teams Cnc Mechanic Relationship Specialty Start Date End Date Charan Delgadillo DO PCP - General 07/09/20 02/21/24 Charan Delgadillo DO PCP - General Family Medicine 02/22/24 Rosalinda Cordova MD 3 [facility] 2, [address] [address] Consulting Physician Cardiology 02/22/24 documented as of this encounter
--- OUTSIDE RECORDS SUMMARY | 2025-06-28 09:13 | XMS_ITS | Encounter Summary ---
Author Organization [facility] Address [address] [place] [address] Phone Care Team Providers Care Electrician Constructor Supervisor Name Role Phone Charan Delgadillo DO Primary Care Provider [phone] Charan Delgadillo DO Primary Care Provider [phone] Rosalinda Cordova MD Unavailable [phone] Encounter Details Date Type Department Care Team (Late Contact Info) Description 02/19/2022 Orders Only [facility] LEGACY [address] [place] [address] Conversion, Onbase Social History Tobacco Use Types [...] Office Visit [facility] 703 [facility] [address] [place] [address] Rosalinda Cordova MD 703 [facility] 2, [address] [place] [address] Scheduled Orders Name Type Priority Associated Diagnoses Orde r Schedule OUTSIDE LAB SCAN Lab Ordered: 02/19/2022 documented as of this encounter Visit Diagnoses Not on filedocumented in this encounter Care Teams Electrician Constructor Supervisor Relationship Specialty Start Date End Date Charan Delgadillo DO PCP - General 07/09/20 02/21/24 Charan Delgadillo DO PCP - General Family Medicine 02/22/24 Rosalinda Cordova MD 703 [facility] 2, [place] [address] Consulting Physician Cardiology 02/22/24 documented as of this encounter
--- OUTSIDE RECORDS SUMMARY | 2025-06-28 09:13 | XMS_ITS | Encounter Summary ---
Author Organization [facility] Address [address] [place] [phone] Phone Care Team Providers Care Repair Cameraman Name Role Phone Charan Delgadillo DO Primary Care Provider [phone] Charan Delgadillo DO Primary Care Provider [phone] Rosalinda Cordova MD Unavailable [phone] Encounter Details Date Type Department Care Team (Late st Contact Info) Description 04/17/2020 Orders Only [facility] LEGACY [address] [place] [address] Conversion, Onbase Social History Tobacco Use Types [...] Description 11/03/2025 2:30 PM EST Office Visit [facility] [address] [address] oRsalinda Cordova MD [address] [facility] [address], [address] [place] [address] Scheduled Orders Name Type Priority Associated Diagnoses Orde r Schedule OUTSIDE LAB SCAN Lab Ordered: 04/17/2020 documented as of this encounter Visit Diagnoses Not on filedocumented in this encounter Care Teams Repair Cameraman Relationship Specialty Start Date End Date Charan Delgadillo DO PCP - General 07/09/20 02/21/24 Charan Delgadillo DO PCP - General Family Medicine 02/22/24 Rosalinda Cordova MD 703 [facility] 2, [place] [address] Consulting Physician Cardiology 02/22/24 documented as of this encounter
--- OUTSIDE RECORDS SUMMARY | 2025-06-28 09:13 | XMS_ITS | Patient Health Record ---
Author Organization [facility] Address [address] [place] [address] Care Team Providers Care Admitting Officer Name Role Phone Charan Delgadillo DO Primary Care Provider [facility] [phone] Allergies Allergen (clinical drug ingredient) Drug/Non Drug Allergy documented on EMR Reaction Allergy Type Onset Date Status erythromycin Erythromycin Unknown Drug Allergy A ctive Reason For Referral Reason evaluation and treat ment -- see attached order Diagnosis 1 Charcot's joint of l eft foot (M14.672) Diagnosis 2 Charcot's joint, rig ht ankle and foot (M14.671) Referral Organization [facility] [place] (PODIATRY) Referring Provider First Name Torres Referring [...] Once a day for 30 day(s) Active [place] 3 1000 MG 1 capsule Orally Onc [...] Problem Status W/U Status Risk Notes Problem [id number] 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.621) Active confirmed Problem 473078437 Ingrowing nail (L60.0) Active confirmed Problem 53091618195603500 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) Active confirmed Problem 822548277 Charcot's joint, right ankle and foot (M14.671) Active confirmed Problem 097423744 Primary osteoarthritis, left ankle and foot (M19.072) Active confirmed Problem 383582041 Other hammer toe (s) (acquired), left foot (M20.42) Active confirmed Problem 151340405 Other specified acquired deformities of right lower leg (M21.861) Active confirmed Problem 62921521760132609 Pain in right ankle and joints of right foot (M25.571) Active confirmed Problem 542023011 Pain in left ank le and joints of left foot (M25.572) Active confirmed Problem 19293863371355070 Pain in right foot (M79.671) Active confirmed Problem 150222016909327 Pain in left david t (M79.672) Active confirmed Problem 169536986 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) Active confirmed Problem 12403890 Pain due to inte rnal orthopedic prosthetic devices, implants and grafts, initial encounter (T84.84XA) Active confirmed Problem Hypertension (55006348) HTN (hypertension) (I10) Active confirmed Problem Diabetic nephropathy (868032834) Diabetic nephropathy (E11.21) Active confirmed Problem Heart disease (61119436) Heart disease (I51.9) Active confirmed Problem 264433495 Charcot's joint of left foot (M14.672) Active confirmed Problem 348856554 Postoperative wo und dehiscence, subsequent encounter (T81.31XD) Active confirmed Problem Hypercholesterolemia (91006956) Hypercholesterolemia (E78.00) Active confirmed Problem 044610444 Charcot's joint of right foot (M14.671) Active confirmed Problem 840799500 Acquired abducti on deformity of left foot (M21.6X2) Active confirmed Problem Diabetes mellitus (73088711) Diabetes mellitus (E11.9) Active confirmed Vital Signs Heart Rate 91 /min 07/12/2024 Temperature 97.3 degrees Fahrenheit 07/12/2024 Oximetry 97 % 07/12/2024 Height 67 in 07/12/2024 Weight 235 lbs 07/12/2024 BMI 36.8 kg/m2 07/12/2024 Encounters Encounter Location Date Provider Diagnosis [facility] [place] (PODIATRY) [address] [place] [address] [address] [place] [address] 07/12/2024 Torres Fernandez Cutaneous abscess of left foot L02.612 [...] which was provided today. Plan Of Treatment Pending Test Test Name Order Date POINT OF CARE GLUCOSE 04/13/2023 PROF CHEM 8 (BAS METB) 03/31/2023 XR foot LAURA min 3V 06/22/2024 Insurance Providers Payer Name Payer Address Payer Phone Subscriber Number Group Number Insured Name Patient Relationship to Insured Coverage Start Date Coverage End Date O [address] [place], [place] [id number] Joy Asher Self - patient is the insured Medical [...]
--- OUTSIDE RECORDS SUMMARY | 2025-06-28 09:13 | XMS_ITS | Encounter Summary ---
Author Organization [facility] Address [address] [place] [address] Phone Care Team Providers Care Screen Writer Name Role Phone Yeison Delgadilloan Dani BASSETT Primary Care Provider [phone] Rosalinda Cordova MD Unavailable [phone] Encounter Details Date Type Department Care Team (Late st Contact Info) Description 02/29/2024 Scanned Document [facility] [address] [place] [address] Scanning, Generic Provider Social History [...] Office Visit [facility] 703 [facility] 250 [place] [address] Rosalinda Cordova MD 703 [facility] [address], [address] [place] [address] documented as of this encounter Visit Diagnoses Not on filedocumented in this encounter Additional Health Concerns Assessment Noted Time A fall risk assessment has been complete d for the patient 02/22/2024 2:26 PM EDT documented as of this encounter Care Teams Screen Writer Relationship Specialty Start Date End Date Charan Delgadillo DO PCP - General Family Medicine 02/22/24 Rosalinda Cordova MD 703 [facility] 2, [place] [address] Consulting Physician Cardiology 02/22/24 documented as of this encounter
--- OUTSIDE RECORDS SUMMARY | 2025-06-28 09:13 | XMS_ITS | Encounter Summary ---
Author Organization [facility] Address [address] [place] [phone] Phone Care Team Providers Care Inspector Filters Name Role Phone Charan Degladillo DO Primary Care Provider [phone] Charan Delgadillo DO Primary Care Provider [phone] Rosalinda Cordova MD Unavailable [phone] Encounter Details Date Type Department Care Team (Late st Contact Info) Description 11/19/2021 Orders Only [facility] LE[facility] [address] [place] [address] Conversion, Onbase Social History Tobacco Use Types [...] Description 11/03/2025 2:30 PM EST Office Visit [facility] 703 [facility] 250 [place] [address] Rosalinda Cordova MD 703 [facility] 2, [address] [place] [address] Scheduled Orders Name Type Priority Associated Diagnoses Orde r Schedule OUTSIDE LAB SCAN Lab Ordered: 11/19/2021 documented as of this encounter Visit Diagnoses Not on filedocumented in this encounter Care Teams Inspector Filters Relationship Specialty Start Date End Date Charan Delgadillo DO PCP - General 07/09/20 02/21/24 Charan Delgadillo DO PCP - General Family Medicine 02/22/24 Rosalinda Cordova MD 703 [facility] 2, [place] [address] Consulting Physician Cardiology 02/22/24 documented as of this encounter
--- OUTSIDE RECORDS SUMMARY | 2025-06-28 09:13 | XMS_ITS | Encounter Summary ---
Author Organization [facility] Address [address] [place] [address] Phone Care Team Providers Care Policy Checker Name Role Phone Yeison Delgadilloan Dani BASSETT Primary Care Provider [phone] Rosalinda Cordova MD Unavailable [phone] Encounter Details Date Type Department Care Team (Late st Contact Info) Description 12/08/2024 Scanned Document [facility] [address] [place] [address] Scanning, Generic Provider Social History [...] Description 11/03/2025 2:30 PM EST Office Visit [facility] [address] [address] Rosalinda Cordova MD 703 [facility] 2, [address] [place] [address] documented as of this encounter [...] documented as of this encounter Care Teams Policy Checker Relationship Specialty Start Date End Date Charan Delgadillo DO PCP - General Family Medicine 02/22/24 Rosalinda Cordova MD 703 [facility] 2, [place] [address] Consulting Physician Cardiology 02/22/24 documented as of this encounter
--- OUTSIDE RECORDS SUMMARY | 2025-06-28 09:13 | XMS_ITS | Encounter Summary ---
Author Organization [facility] Address [address] [place] [address] Phone Care Team Providers Care Storage Receipt Poster Name Role Phone Charan Delgadillo DO Primary Care Provider [phone] Charan Delgadillo DO Primary Care Provider [phone] Rosalinda Cordova MD Unavailable [phone] Encounter Details Date Type Department Care Team (Late st Contact Info) Description 12/30/2023 Scanned Document [facility] [address] [place] [address] Scanning, Generic Provider Social History Tobacco Use [...] Description 11/03/2025 2:30 PM EST Office Visit [facility] 703 [facility] 250 [place] [address] Rosalinda Cordova MD 703 [facility] 2, [address] [place] [address] documented as of this encounter Procedures Procedure Name Priority Date/Time Associated Diagnosis Comments OUTSIDE IMAGING SCAN 12/30/2023 documented in this encounter Results * OUTSIDE IMAGING SCAN (12/30/2023) Anatomical Region Laterality Modality Other Narrative 12/30/2023 Ordered by an unspecified provider. us Generic Provider Scanning OUTSIDE SCAN Final Result documented in this encounter Visit Diagnoses Not on filedocumented in this encounter Care Teams Storage Receipt Poster Relationship Specialty Start Date End Date Charan Delgadillo DO PCP - General 07/09/20 02/21/24 Charan Delgadillo DO PCP - General Family Medicine 02/22/24 Rosalinda Cordova MD 703 [facility] 2, [address] [address] Consulting Physician Cardiology 02/22/24 documented as of this encounter
--- OUTSIDE RECORDS SUMMARY | 2025-06-28 09:13 | XMS_ITS | Encounter Summary ---
Author Organization [facility] Address [address] [place] [phone] Phone Care Team Providers Care Child Psychology Teacher Name Role Phone Charan Delgadillo DO Primary Care Provider [phone] Charan Delgadillo DO Primary Care Provider [phone] Rosalinda Cordova MD Unavailable [phone] Encounter Details Date Type Department Care Team (Late st Contact Info) Description 10/22/2021 Orders Only [facility] LEGACY [address] [place] [address] Conversion, Onbase Social History Tobacco Use Types [...] EST Office Visit [facility] 703 [facility] 250 [place] [address] Rosalinda Cordova MD 703 [facility] 2, [address] [place] [address] Scheduled Orders Name Type Priority Associated Diagnoses Orde r Schedule SLEEP STUDY ORDER - ONBASE SCAN Sleep Center Ordered: 021 documented as of this encounter Visit Diagnoses Not on filedocumented in this encounter Care Teams Child Psychology Teacher Relationship Specialty Start Date End Date Charan Delgadillo DO PCP - General 07/09/20 02/21/24 Charan Delgadillo DO PCP - General Family Medicine 02/22/24 Rosalinda Cordova MD 703 [facility] 2, [place] [address] Consulting Physician Cardiology 02/22/24 documented as of this encounter
--- OUTSIDE RECORDS SUMMARY | 2025-06-28 09:13 | XMS_ITS | Encounter Summary ---
Author Organization [facility] Address [address] [place] [phone] Phone Care Team Providers Care Land Measurer Name Role Phone Charan Delgadillo DO Primary Care Provider [phone] Charan Delgadillo DO Primary Care Provider [phone] Rosalinda Cordova MD Unavailable [phone] Encounter Details Date Type Department Care Team (Late st Contact Info) Description 06/19/2020 Orders Only [facility] LEGACY [address] [place] [address] Conversion, Onbase Social History Tobacco Use Types [...] Description 11/03/2025 2:30 PM EST Office Visit [facility] [address] [address] Rosalinda Cordova MD 703 [facility] [address], [address] [place] [address] Scheduled Orders Name Type Priority Associated Diagnoses Orde r Schedule OUTSIDE LAB SCAN Lab Ordered: 06/19/2020 documented as of this encounter Visit Diagnoses Not on filedocumented in this encounter Care Teams Land Measurer Relationship Specialty Start Date End Date Charan Delgadillo DO PCP - General 07/09/20 02/21/24 Charan Delgadillo DO PCP - General Family Medicine 02/22/24 Rosalinda Cordova MD 703 [facility] 2, [place] [address] Consulting Physician Cardiology 02/22/24 documented as of this encounter
--- NOTE | 2025-06-28 09:35 | XR_ITS ---
The [place] [id number] Patient Name: RITA COBB MRN: [id number] date: 1960 Sex: F Assigned Patient Location: [facility] Current Patient Location: [facility] Accession/Order Number: [id number] Exam Date: 06/28/2025 09:41 Report Date: 06/28/2025 09:48 At the request of: REID RAMOS Procedure: XR ankle LT min 3V LEFT FOOT - 3 views left ankle 3 views CLINICAL HISTORY: Left foot and ankle pain status post fall. Open wound bottom of left foot. COMPARISON: Bilateral foot series 06/05/2025 FINDINGS: Left ankle: Soft tissue swelling is present. Ankle mortise appears intact with mild degenerative change. Vascular calcifications. No acute bony process involving the left ankle. Left foot: Diffuse soft tissue swelling is present. Hardware once again demonstrated involving the hindfoot and midfoot is grossly unchanged without evidence of hardware fracture. There is presumed Charcot changes similar configuration to the prior study. No definite acute bony process or plain film evidence of acute osteomyelitis. XR/XR ankle LT min 3V IMPRESSION: SOFT TISSUE SWELLING INVOLVING THE LEFT ANKLE AND FOOT WITH CHARCOT CHANGES AND HARDWARE PRESENT. NO HARDWARE COMPLICATION IS SEEN. NO DEFINITE ACUTE BONY PROCESS OR DEFINITIVE PLAIN FILM EVIDENCE OF ACUTE OSTEOMYELITIS. Impression dictated by: Sudhir Brown Jr., D.O. 06/28/2025 9:48 AM Dictation Location: [place] [address] Electronically authenticated by: [id number] Y Date: 06/28/2025 09:48
--- NOTE | 2025-06-28 09:35 | XR_ITS ---
The [place] [id number] Patient Name: RITA COBB MRN: [id number] date: 1960 Sex: F Assigned Patient Location: [facility] Current Patient Location: [facility] Accession/Order Number: [id number] Exam Date: 06/28/2025 09:41 Report Date: 06/28/2025 09:48 At the request of: REID RAMOS Procedure: XR ankle LT min 3V LEFT FOOT - 3 views left ankle 3 views CLINICAL HISTORY: Left foot and ankle pain status post fall. Open wound bottom of left foot. COMPARISON: Bilateral foot series 06/05/2025 FINDINGS: Left ankle: Soft tissue swelling is present. Ankle mortise appears intact with mild degenerative change. Vascular calcifications. No acute bony process involving the left ankle. Left foot: Diffuse soft tissue swelling is present. Hardware once again demonstrated involving the hindfoot and midfoot is grossly unchanged without evidence of hardware fracture. There is presumed Charcot changes similar configuration to the prior study. No definite acute bony process or plain film evidence of acute osteomyelitis. XR/XR foot LT min 3V IMPRESSION: SOFT TISSUE SWELLING INVOLVING THE LEFT ANKLE AND FOOT WITH CHARCOT CHANGES AND HARDWARE PRESENT. NO HARDWARE COMPLICATION IS SEEN. NO DEFINITE ACUTE BONY PROCESS OR DEFINITIVE PLAIN FILM EVIDENCE OF ACUTE OSTEOMYELITIS. Impression dictated by: Sudhir Brown Jr., D.O. 06/28/2025 9:48 AM Dictation Location: [place] [address] Electronically authenticated by: [id number] Y Date: 06/28/2025 09:48
== END 2025-06-28 09:01 | disposition home or self-care (01) ==
LOC: RAD 09:10
PROVIDERS: Visit Provider Physician Assistant
DX: M79.672 Pain in left foot (principal); L97.529 Non-pressure chronic ulcer of other part of left foot with unspecified severity; L02.612 Cutaneous abscess of left foot; M79.89 Other specified soft tissue disorders; M14.672 Charcot's joint, left ankle and foot
CPT/HCPCS: 73610; 73630; 87070; 87075; 87205

== ENCOUNTER 2025-06-28 10:01 | Outpatient (OUT) | payer MEDICARE, SELFPAY | END 2025-06-28 10:02 | disposition home or self-care (01) | LOC: WC 10:02 | PROVIDERS: Visit Provider Physician Assistant | DX: E11.621 Type 2 diabetes mellitus with foot ulcer (principal); L97.421 Non-pressure chronic ulcer of left heel and midfoot limited to breakdown of skin; L97.422 Non-pressure chronic ulcer of left heel and midfoot with fat layer exposed | CPT/HCPCS: G0463 ==

== ENCOUNTER 2025-06-28 10:24 | Inpatient (IN) | payer MEDICARE, SELFPAY ==
[2025-06-28] VITALS (8 sets, daily range): BP systolic 102–139; BP diastolic 68–75; PULSE 72–98; TEMP 36.7–37.4; O2SAT 95–97; BMI 29.5; BMI 33.9
--- OUTSIDE RECORDS SUMMARY | 2025-06-28 10:35 | XMS_ITS | Encounter Summary ---
Author Organization [facility] Address [address] [place] [phone] Phone Care Team Providers Care Planishing Hammer Operator Name Role Phone Charan Delgadillo DO Primary Care Provider [phone] Charan Delgadillo DO Primary Care Provider [phone] Rosalinda Cordova MD Unavailable [phone] Encounter Details Date Type Department Care Team (Late st Contact Info) Description 03/06/2023 Orders Only [facility] LEGACY [address] [place] [address] Conversion, Onbase Social History Tobacco Use Types [...] Description 11/03/2025 2:30 PM EST Office Visit [facility] 703 [facility] 250 [place] [address] Rosalinda Cordova MD 703 [facility] 2, [address] [place] [address] Scheduled Orders Name Type Priority Associated Diagnoses Orde r Schedule OUTSIDE LAB SCAN Lab Ordered: 03/06/2023 documented as of this encounter Visit Diagnoses Not on filedocumented in this encounter Care Teams Planishing Hammer Operator Relationship Specialty Start Date End Date Charan Delgadillo DO PCP - General 07/09/20 02/21/24 Charan Delgadillo DO PCP - General Family Medicine 02/22/24 Rosalinda Cordova MD 703 [facility] 2, [place] [address] Consulting Physician Cardiology 02/22/24 documented as of this encounter
--- OUTSIDE RECORDS SUMMARY | 2025-06-28 10:35 | XMS_ITS | Encounter Summary ---
Author Organization [facility] Address [address] [place] [phone] Phone Care Team Providers Care Top Icer Name Role Phone Charan Delgadillo DO Primary Care Provider [phone] Charan Delgadillo DO Primary Care Provider [phone] Rosalinda Cordova MD Unavailable [phone] Encounter Details Date Type Department Care Team (Late st Contact Info) Description 10/22/2021 Orders Only [facility] LEGACY [address] [place] [address] Conversion, Onbase Social History Tobacco Use Types [...] Description 11/03/2025 2:30 PM EST Office Visit [facility] 703 [facility] 250 [place] [address] Rosalinda Cordova MD 703 [facility] 2, [address] [place] [address] Scheduled Orders Name Type Priority Associated Diagnoses Orde r Schedule SLEEP STUDY ORDER - ONBASE SCAN Sleep Center Ordered: 021 documented as of this encounter Visit Diagnoses Not on filedocumented in this encounter Care Teams Top Icer Relationship Specialty Start Date End Date Charan Delgadillo DO PCP - General 07/09/20 02/21/24 Charan Delgadillo DO PCP - General Family Medicine 02/22/24 Rosalinda Cordova MD 703 [facility] 2, [place] [address] Consulting Physician Cardiology 02/22/24 documented as of this encounter
--- OUTSIDE RECORDS SUMMARY | 2025-06-28 10:35 | XMS_ITS | Clinical Summary ---
Author Organization [facility] Address [address] [place], [place] [id number] Care Team Providers Care Php Mysql Web Developer Name Role Phone Charan Delgadillo DO Primary Care Provider [phone] Allergies Active Allergy Reactions Criticality Noted Date [...] EST) Glucose 316(H) 65 - 100 mg/dL [facility] BUN 15 8 - 25 mg/dL [facility] Creatinine 0.78 0.70 - 1.40 mg/dL [facility] Sodium 135 132 - 148 mmol/L [facility] Potassium 4.4 3.5 - 5.0 mmol/L [facility] Chloride 96(L) 98 - 110 mmol/L [facility] CO2 23 23 - 32 mmol/L [facility] Anion Gap 16(H) 0 - 15 mmol/L [facility] Calcium 11.4(H) 8.5 - 10.5 mg/dL [facility] eGFR- >60 [facility] eGFR-All Other Races >60 . [facility] Comment: eGFR (Estimated GFR) Units [...] EST Dorothy Renteria MD LABORATORY Final Result [facility] [address] [place] [address] from Last 3 Months or Most Recently Relevant to Health Maintenance Insurance [facility] PPO Care Teams Php Mysql Web Developer Relationship Specialty Start Date End Date Charan Delgadillo DO [address] [place] [address] PCP - General Family Medicine 11/08/12
--- OUTSIDE RECORDS SUMMARY | 2025-06-28 10:35 | XMS_ITS | Encounter Summary ---
Author Organization [facility] Address [address] [place] [phone] Phone Care Team Providers Care Embedded Linux Developer Name Role Phone Charan Delgadillo DO Primary Care Provider [phone] Charan Delgadillo DO Primary Care Provider [phone] Rosalinda Cordova MD Unavailable Encounter Details Date Type Department Care Team (Late st Contact Info) Description 11/19/2021 Orders Only [facility] [address] [place] [address] Conversion, Onbase Social History Tobacco Use Types [...] 11/03/2025 2:30 PM EST Office Visit [facility] 703 [facility] [address] [place] [address] Rosalinda Cordova MD 703 [facility] 2, [address] [place] [address] Scheduled Orders Name Type Priority Associated Diagnoses Orde r Schedule OUTSIDE LAB SCAN Lab Ordered: 11/19/2021 documented as of this encounter Visit Diagnoses Not on filedocumented in this encounter Care Teams Embedded Linux Developer Relationship Specialty Start Date End Date Charan Delgadillo DO PCP - General 07/09/20 02/21/24 Charan Delgadillo DO PCP - General Family Medicine 02/22/24 Rosalinda Cordova MD 703 [facility] 2, [place] [address] Consulting Physician Cardiology 02/22/24 documented as of this encounter
--- OUTSIDE RECORDS SUMMARY | 2025-06-28 10:35 | XMS_ITS | Encounter Summary ---
Author Organization [facility] Address [address] [place] [address] Phone Care Team Providers Care Senior Account Clerk Name Role Phone Charan Delgadillo DO Primary Care Provider [phone] Charan Delgadillo DO Primary Care Provider [phone] Rosalinda Cordova MD Unavailable [phone] Encounter Details Date Type Department Care Team (Late Contact Info) Description 02/19/2022 Orders Only [facility] [address] [place] [address] Conversion, Onbase Social History Tobacco Use Types [...] Description 11/03/2025 2:30 PM EST [facility] 703 [facility] [address] [place] [address] Rosalinda Cordova MD 703 [facility] 2, [address] [place] [address] Scheduled Orders Name Type Priority Associated Diagnoses Orde r Schedule OUTSIDE LAB SCAN Lab Ordered: 02/19/2022 documented as of this encounter Visit Diagnoses Not on filedocumented in this encounter Care Teams Senior Account Clerk Relationship Specialty Start Date End Date Charan Delgadillo DO PCP - General 07/09/20 02/21/24 Charan Delgadillo DO PCP - General Family Medicine 02/22/24 Rosalinda Cordova MD 703 [facility] 2, [place] [phone] Consulting Physician Cardiology 02/22/24 documented as of this encounter
--- OUTSIDE RECORDS SUMMARY | 2025-06-28 10:35 | XMS_ITS | Encounter Summary ---
Author Organization [facility] Address [address] [place] [address] Phone Care Team Providers Care Development Professional Name Role Phone Charan Delgadillo DO Primary Care Provider [phone] Charan Delgadillo DO Primary Care Provider [phone] Rosalinda Cordova MD Unavailable Encounter Details Date Type Department Care Team (Late st Contact Info) Description 12/30/[address] [facility] [address] [place] [address] Scanning, Generic Provider Social History Tobacco Use [...] Description 11/03/2025 2:30 PM EST Office Visit [facility] 703 [facility] 250 [place] [address] Rosalinda Cordova MD 703 [facility] 2, [address] [place] [address] documented as of this encounter Procedures Procedure Name Priority Date/Time Associated Diagnosis Comments OUTSIDE IMAGING SCAN 12/30/2023 documented in this encounter Results * OUTSIDE IMAGING SCAN (12/30/2023) Anatomical Region Laterality Modality Other Narrative 12/30/2023 Ordered by an unspecified provider. us Generic Provider Scanning OUTSIDE SCAN Final Result documented in this encounter Visit Diagnoses Not on filedocumented in this encounter Care Teams Development Professional Relationship Specialty Start Date End Date Charan Delgadillo DO PCP - General 07/09/20 02/21/24 Charan Delgadillo DO PCP - General Family Medicine 02/22/24 Rosalinda Cordova MD 703 [facility] 2, [address] [address] Consulting Physician Cardiology 02/22/24 documented as of this encounter
--- OUTSIDE RECORDS SUMMARY | 2025-06-28 10:35 | XMS_ITS | Encounter Summary ---
Author Organization [facility] Address [address] [place] [phone] Phone Care Team Providers Care Cna Pct Name Role Phone Charan Delgadillo DO Primary Care Provider [phone] Charan Delgadillo DO Primary Care Provider [phone] Rosalinda Cordova MD Unavailable [phone] Encounter Details Date Type Department Care Team (Late st Contact Info) Description 06/19/2020 Orders Only [facility] [address] [place] [address] Conversion, Onbase Social History Tobacco Use Types [...] Description 11/03/2025 2:30 PM EST Office Visit [facility] [address] [address] Rosalinda Cordova MD 703 [facility] [address], [address] [place] [address] Scheduled Orders Name Type Priority Associated Diagnoses Orde r Schedule OUTSIDE LAB SCAN Lab Ordered: 06/19/2020 documented as of this encounter Visit Diagnoses Not on filedocumented in this encounter Care Teams Cna Pct Relationship Specialty Start Date End Date Charan Delgadillo DO PCP - General 07/09/20 02/21/24 Charan Delgadillo DO PCP - General Family Medicine 02/22/24 Rosalinda Cordova MD [address] [facility] 2, [place] [address] Consulting Physician Cardiology 02/22/24 documented as of this encounter
--- OUTSIDE RECORDS SUMMARY | 2025-06-28 10:35 | XMS_ITS | Encounter Summary ---
Author Organization [facility] Address [address] [place] [address] Phone Care Team Providers Care Director Pharmacovigilance Name Role Phone Charan Delgadillo DO Primary Care Provider [phone] Charan Delgadillo DO Primary Care Provider [phone] Rosalinda Cordova MD Unavailable [phone] Encounter Details Date Type Department Care Team (Late st Contact Info) Description 11/26/2023 Scanned Document [facility] [address] [place] [id number] Scanning, Generic Provider Social History Tobacco Use [...] Description 11/03/2025 2:30 PM EST Office Visit [facility] 703 [facility] [address] [place] [address] Rosalinda Cordova MD 703 [facility] 2, [address] [place] [address] documented as of this encounter Visit Diagnoses Not on filedocumented in this encounter Care Teams Director Pharmacovigilance Relationship Specialty Start Date End Date Charan Delgadillo DO PCP - General 07/09/20 02/21/24 Charan Delgadillo DO PCP - General Family Medicine 02/22/24 Rosalinda Codrova MD 703 [facility] 2, [place] [address] Consulting Physician Cardiology 02/22/24 documented as of this encounter
--- OUTSIDE RECORDS SUMMARY | 2025-06-28 10:35 | XMS_ITS | Encounter Summary ---
Author Organization [facility] Address [address] [place] [phone] Phone Care Team Providers Care Pin Attacher Name Role Phone Charan Delgadillo DO Primary Care Provider [phone] Charan Delgadillo DO Primary Care Provider [phone] Rosalinda Cordova MD Unavailable [phone] Encounter Details Date Type Department Care Team (Late st Contact Info) Description 04/17/2020 Orders Only [facility] [address] [place] [address] Conversion, Onbase Social History Tobacco Use Types [...] Description 11/03/2025 2:30 PM EST Office Visit [facility] [address] [address] Rosalinda Cordova MD [address]03 [facility] [address], [address] [place] [address] Scheduled Orders Name Type Priority Associated Diagnoses Orde r Schedule OUTSIDE LAB SCAN Lab Ordered: 04/17/2020 documented as of this encounter Visit Diagnoses Not on filedocumented in this encounter Care Teams Pin Attacher Relationship Specialty Start Date End Date Charan Delgadillo DO PCP - General 07/09/20 02/21/24 Charan Delgadillo DO PCP - General Family Medicine 02/22/24 Rosalinda Cordova MD 703 [facility] 2, [place] [address] Consulting Physician Cardiology 02/22/24 documented as of this encounter
--- OUTSIDE RECORDS SUMMARY | 2025-06-28 10:35 | XMS_ITS | Encounter Summary ---
Author Organization [facility] Address [address] [place] [address] Phone Care Team Providers Care Project Buyer Name Role Phone Charan Delgadillo DO Primary Care Provider [phone] Charan Delgadillo DO Primary Care Provider [phone] Rosalinda Cordova MD Unavailable [phone] Encounter Details Date Type Department Care Team (Late st Contact Info) Description 03/25/2022 Orders Only [facility] [address] [place] [address] Conversion, Onbase Social History Tobacco Use Types [...] Description 11/03/2025 2:30 PM EST Office Visit [facility] [address] [address] Rosalinda Cordova MD 703 [facility] 2, [address] [place] [address] Scheduled Orders Name Type Priority Associated Diagnoses Orde r Schedule OUTSIDE LAB SCAN Lab Ordered: 03/25/2022 OUTSIDE LAB SCAN Lab Ordered: 03/25/2022 OUTSIDE LAB SCAN Lab Ordered: 03/25/2022 documented as of this encounter Visit Diagnoses Not on filedocumented in this encounter Care Teams Project Buyer Relationship Specialty Start Date End Date Charan Delgadillo DO PCP - General 07/09/20 02/21/24 Charan Delgadillo DO PCP - General Family Medicine 02/22/24 Rosalinda Cordova MD 3 [facility] 2, [address] [address] Consulting Physician Cardiology 02/22/24 documented as of this encounter
--- OUTSIDE RECORDS SUMMARY | 2025-06-28 10:35 | XMS_ITS | Encounter Summary ---
Author Organization [facility] Address [address] [place] [address] Phone Care Team Providers Care Hangar Attendant Name Role Phone Yeison Delgadilloan Dani BASSETT Primary Care Provider [phone] Rosalinda Cordova MD Unavailable [phone] Encounter Details Date Type Department Care Team (Late st Contact Info) Description 12/08/2024 Scanned Document [facility] [address] [place] [address] Scanning, Generic Provider Social History [...] Description 11/03/2025 2:30 PM EST Office Visit [facility] [address] [address] Rosalinda Cordova MD 703 [facility] 2, [address] [place] [address] documented as of this encounter [...] documented as of this encounter Care Teams Hangar Attendant Relationship Specialty Start Date End Date Charan Delgadillo DO PCP - General Family Medicine 02/22/24 Rosalinda Cordova MD 703 [facility] 2, [place] [phone] Consulting Physician Cardiology 02/22/24 documented as of this encounter
--- OUTSIDE RECORDS SUMMARY | 2025-06-28 10:35 | XMS_ITS | Encounter Summary ---
Author Organization [facility] Address [address] [place] [phone] Phone Care Team Providers Care Solar Electric Practitioner Name Role Phone Charan Delgadillo DO Primary Care Provider [phone] Charan Delgadillo DO Primary Care Provider [phone] Rosalinda Cordova MD Unavailable [phone] Encounter Details Date Type Department Care Team (Late st Contact Info) Description 08/13/2022 Orders Only [facility] [address] [place] [address] Conversion, Onbase Social History Tobacco Use Types [...] Description 11/03/2025 2:30 PM EST Office Visit [facility] 703 [facility] [address] [place] [address] Rosalinda Cordova MD 703 [facility] 2, [address] [place] [address] Scheduled Orders Name Type Priority Associated Diagnoses Orde r Schedule OUTSIDE LAB SCAN Lab Ordered: 08/13/2022 documented as of this encounter Visit Diagnoses Not on filedocumented in this encounter Care Teams Solar Electric Practitioner Relationship Specialty Start Date End Date Charan Delgadillo DO PCP - General 07/09/20 02/21/24 Charan Delgadillo DO PCP - General Family Medicine 02/22/24 Rosalinda Cordova MD 703 [facility] 2, [place] [address] Consulting Physician Cardiology 02/22/24 documented as of this encounter
--- OUTSIDE RECORDS SUMMARY | 2025-06-28 10:35 | XMS_ITS | Clinical Summary ---
Author Organization [facility] Address [address] [place] [address] Phone Care Team Providers Care Finisher Brush Name Role Phone Charan Delgadillo DO Primary Care Provider [phone] Rosalinda Cordova MD Unavailable [phone] Allergies Active Allergy Reactions Criticality Noted Date [...] daily. 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 Take 1 [...] Description 11/03/2025 2:30 PM EST Office Visit [facility] [address] [address] Rosalinda Cordova MD 703 [facility] 2, [address] [place] [address] Health Maintenance Due Date Last Done Comments [...] patient's age to complete this topic Insurance [facility] [employer] MEDICARE [employer] [place] MEDICARE [facility] [employer] MEDICARE [employer] [place] MEDICARE Care Teams Finisher Brush Relationship Specialty Start Date End Date Charan Delgadillo DO PCP - General Family Medicine 02/22/24 Rosalinda Cordova MD 703 [facility] 2, [place] [phone] Consulting Physician Cardiology 02/22/24
--- OUTSIDE RECORDS SUMMARY | 2025-06-28 10:35 | XMS_ITS | Encounter Summary ---
Author Organization [facility] Address [address] [place] [address] Phone Care Team Providers Care Senior Investigator Name Role Phone Yeison Delgadilloan Dani BASSETT Primary Care Provider Rosalinda Cordova MD Unavailable [phone] Encounter Details Date Type Department Care Team (Late st Contact Info) Description 02/29/2024 Scanned Document [facility] [address] [place] [address] Scanning, Generic Provider Social History [...] Description 11/03/2025 2:30 PM EST Office Visit [facility] 703 [facility] [address] [place] [address] Rosalinda Cordova MD 703 [facility] [address] 2, [address] [place] [address] documented as of this encounter Visit Diagnoses Not on filedocumented in this encounter Additional Health Concerns Assessment Noted Time A fall risk assessment has been complete d for the patient 02/22/2024 2:26 PM EDT documented as of this encounter Care Teams Senior Investigator Relationship Specialty Start Date End Date Charan Delgadillo DO PCP - General Family Medicine 02/22/24 Rosalinda Cordova MD 703 [facility] 2, [place] [address] Consulting Physician Cardiology 02/22/24 documented as of this encounter
--- OUTSIDE RECORDS SUMMARY | 2025-06-28 10:35 | XMS_ITS | Encounter Summary ---
Author Organization [facility] Address [address] [place] [phone] Phone Care Team Providers Care Client Administrator Name Role Phone Charan Delgadillo DO Primary Care Provider [phone] Charan Delgadillo DO Primary Care Provider [phone] Rosalinda Cordova MD Unavailable [phone] Encounter Details Date Type Department Care Team (Late st Contact Info) Description 04/30/2022 Orders Only [facility] [address] [place] [address] Conversion, Onbase Social History Tobacco Use Types [...] 11/03/2025 2:30 PM EST Office Visit [facility] 703 [facility] 250 [place] [address] Rosalinda Cordova MD 703 [facility] 2, [address] [place] [address] Scheduled Orders Name Type Priority Associated Diagnoses Orde r Schedule SLEEP STUDY ORDER - ONBASE SCAN Sleep Center Ordered: 022 documented as of this encounter Visit Diagnoses Not on filedocumented in this encounter Care Teams Client Administrator Relationship Specialty Start Date End Date Charan Delgadillo DO PCP - General 07/09/20 02/21/24 Charan Delgadillo DO PCP - General Family Medicine 02/22/24 Rosalinda Cordova MD 703 [facility] 2, [place] [address] Consulting Physician Cardiology 02/22/24 documented as of this encounter
[2025-06-28 11:18] LABS: Hematocrit 33.7 % (36.0-48.0); Hemoglobin 11.7 g/dL (12.0-16.0); Immature Granulocytes Abs Auto 0.09 10^3/uL (0.00-0.03); Immature Granulocytes Pct Auto 0.5 % (0.0-0.5); Lymphocytes Absolute Auto 0.7 10^3/uL (1.2-3.8); Mean Corpuscular HGB Conc 34.7 g/dL (29.9-35.2); Mean Corpuscular Hemoglobin 30.4 pg (26.7-34.0); Mean Corpuscular Volume 87.5 fL (81.0-99.0); Platelet Count 178 10^3/uL (150-450); Red Blood Count 3.85 10^6/uL (4.20-5.40); White Blood Count 17.3 10^3/uL (4.0-11.0)
[2025-06-28 11:20] LABS: PCO2 VBG 41.7 mmHg (40.0-52.0); pH VBG 7.354 (7.330-7.430)
[2025-06-28 11:35] LABS: INR 1.02; Lactate/Lactic Acid 1.3 mmol/L (0.4-2.0); Prothrombin Time 10.8 sec (9.0-11.6)
[2025-06-28 11:44] LABS: Alanine Aminotransferase 23 U/L (14-59); Albumin Globulin Ratio 0.6; Albumin Level 2.7 g/dL (3.4-5.0); Alkaline Phosphatase 90 U/L (46-116); Anion Gap 19.6; Aspartate Amino Transferase 25 U/L (15-37); Blood Urea Nitrogen 72.0 mg/dL (7.0-18.0); Calcium 9.3 mg/dL (8.5-10.1); Carbon Dioxide 22.3 mmol/L (21.0-32.0); Chloride 99 mmol/L (98-107); Estimated GFR (African America 23 (>=60 mL/min/1.73m^2); Estimated GFR (Non-African Ame 19 (>=60 mL/min/1.73m^2); Globulin 4.6 g/dL; Glucose 81 mg/dL (74-106); Potassium 4.9 mmol/L (3.5-5.1); Sodium 136 mmol/L (136-145); Total Protein 7.3 g/dL (6.4-8.2)
[2025-06-28] MEDS: VANCOMYCIN HCL 1,250 MG in 0.9 % SODIUM CHLORIDE 250 ML 166.667 MG IV (12:08)
--- NOTE | 2025-06-28 12:08 | ED.GENADUL1 ---
HPI HPI - General Adult General Chief complaint: Extremity Problem, Nontraumatic Stated complaint: L FOOT INFECTION SENT BY DR ENRIQUEZ Time Seen by Provider: 06/28/25 11:01 Source: patient Mode of arrival: walk-in Limitations: no limitations History of Present Illness HPI narrative: Patient is a 64-year-old female who is presenting to the ER with chief complaint of left foot infection. Patient has an ulceration to the base of the left foot that is been there for several weeks. Patient has a new ulceration to the medial aspect of the left foot over the first metatarsal head. Patient has a history of type 2 diabetes, however she is on insulin now and no oral medications. Patient has a history of Charcot foot. She has had surgery several years ago on her left foot. Surgery was done by Dr. Fernandez. Patient has had this ulceration to the lateral aspect of her left foot for several weeks. Patient is extremely involved in the fair this coming up in [facility] [place] next week, and patient was going to have a surgery scheduled after the fair to have additional bone shaved, removed as causing an ulceration to the bottom of her left foot. Patient is now developing a blood blister/second ulceration to the medial aspect of her left foot. Patient is having swelling, redness, and is concerned for infection. Patient came for an outpatient x-ray this morning. Outpatient x-ray showed soft tissue swelling involving the left ankle and foot with Charcot changes and hardware present. No hardware complication. No definite acute bony process or definitive plain film evidence of acute osteomyelitis. Patient then went to the office and saw Tomy RAMOS. Patient was sent to the ER to be admitted for possible surgery tomorrow, abscess drainage and additional surgery as indicated. Patient has diabetic neuropathy. She has no pain to her left foot. She has had no fever or chills. No abdominal pain, nausea or vomiting. Patient does have a history of cardiac disease as well, she has [address] Brennan. 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 All systems are negative except as noted/marked. All systems reviewed and otherwise negative. Nurses note and vital signs reviewed and patient is not hypoxic. Patient looks well, laughing, joking, looks well. General: The patient appears well and in no apparent distress. Patient is resting comfortably on cart. Patient is not toxic, lethargic, or listless Skin: Warm, dry, no pallor noted. There is no rash noted. No petechiae, purpura. Patient has open wound of 1.5 x 1 cm over the head of the fourth metatarsal, no active drainage currently. Patient also has a blood blister/early ulceration to the medial aspect of the left foot, over the head of the first metatarsal approximately. Patient has no crepitus to the skin noted. Patient does have swelling. There is no pain to palpation to the left foot secondary to diabetic neuropathy. Head: Normocephalic, atraumatic Eye: Normal conjunctiva, no drainage, EOMI. PERRL Ears, Nose, Mouth, and Throat: oral mucosa is moist. Nares patent. Mouth without vesicles. Cardiovascular: Regular Rate and Rhythm, no murmur, gallop, rub Respiratory: Patient is in no distress, no accessory muscle use, lungs are clear to auscultation, no wheezing, rales or rhonchi Back: non-tender, no CVA tenderness bilaterally to percussion. No CT LS midline pain GI: Soft, no tenderness to palpation, no masses appreciated. No rebound, guarding, or rigidity noted. No distention Musculoskeletal: Patient has full range of motion of all of the extremities and at baseline, no motor, sensory, or focal neurological deficits Neurological: A&O x4, normal speech Psychiatric: Cooperative Related Data Home Medications ?Medication ?Instructions ?Recorded ?Confirmed allopurinol 100 mg tablet 100 mg PO DAILY 06/28/25 06/28/25 aspirin 81 mg tablet 81 mg PO DAILY 06/28/25 06/28/25 cholecalciferol (vitamin D3) 50 100 mcg PO DAILY 06/28/25 06/28/25 mcg (2,000 unit) capsule insulin lispro 100 unit/mL 20 unit subcut QPM 06/28/25 06/28/25 subcutaneous pen (Humalog KwikPen (U-100) Insulin) magnesium citrate-potassium tab PO 06/28/25 citrate ER 7.5 mEq tablet,extended release (CitraTabs) metoprolol succinate 200 mg 200 mg PO .qhs 06/28/25 06/28/25 tablet,extended release 24 hr olmesartan 40 mg tablet 40 mg PO DAILY 06/28/25 06/28/25 omega-3 acid ethyl esters 1 gram 2 cap PO BID 06/28/25 06/28/25 capsule pregabalin 150 mg capsule 150 mg PO Q12H 06/28/25 06/28/25 rosuvastatin 10 mg tablet 10 mg PO .3 times a week 06/28/25 06/28/25 tizanidine 4 mg tablet 4 mg PO .qhs PRN muscle spasticity 06/28/25 06/28/25 tramadol 50 mg tablet 50 mg PO Q12H PRN pain 06/28/25 06/28/25 Allergies Allergy/AdvReac Type Severity Reaction Status Date / Time erythromycin base AdvReac Intermediate Rash Verified 06/28/25 10:41 levofloxacin (From Levaquin) AdvReac Intermediate sob Verified 06/28/25 10:41 Opioid HPI Opioid Management Most Recent Opioid Data: Last Pain Scale 6 Today, 10:41 PFSH PFSH Social History Little interest or pleasure in doing things: not at all Feeling down, depressed, or hopeless: not at all Exam Constitutional Vital Signs, click to edit/add: Last Vital Signs Temp 99.3 F 06/28/25 10:41 Pulse 78 06/28/25 10:41 Resp 18 06/28/25 10:41 BP 102/68 06/28/25 10:41 Pulse Ox 97 06/28/25 10:41 Course Vital Signs Vital signs: Vital Signs Temperature 99.3 F 06/28/25 10:41 Pulse Rate 78 06/28/25 10:41 Respiratory Rate 18 06/28/25 10:41 Blood Pressure 102/68 06/28/25 10:41 Pulse Oximetry 97 06/28/25 10:41 Temperature 99.3 F 06/28/25 10:41 Pulse Rate 78 06/28/25 10:41 Respiratory Rate 18 06/28/25 10:41 Blood Pressure 102/68 06/28/25 10:41 Pulse Oximetry 97 06/28/25 10:41 Medical Decision Making [facility] Narrative Medical decision making narrative: Patient seen and examined: Patient have sepsis workup, x-ray of the left foot was done prior to arrival to the ER as an outpatient. Differential diagnosis includes but is not limited to: Osteomyelitis, infection, abscess, foreign body Diagnostics and management: Patient will have laboratory studies Relevant laboratory interpretation: Patient has BUN 72, creatinine 2.58. Patient has a venous blood gases 7.35, CO2 is 41. Patient has white blood cell count of 17 Radiological studies: Please see the formal radiological report. See outpatient left foot x-ray report. No foreign body, crepitus gas, or osteomyelitis., Reevaluation: Shared decision making: I discussed with the patient the necessary laboratory findings and radiological findings. Social barriers to healthcare: There are no food insecurities, there is no issue with transportation, there are no insurance barriers. Disposition: I discussed with the patient and . Patient is aware of admission. Patient is aware of n.p.o. after midnight and probable surgery tomorrow depending on recommendations from podiatry. 1225 I spoke to the hospitalist, Dr. Lyons. He is admitting patient with podiatry in consultation. He is aware of white blood cell count of 17, BUN and creatinine of 72, creatinine 2.58. Patient has been given IV Zosyn and vancomycin. Patient will be admitted to [facility]. Lab Data Labs: Lab Results 06/28/25 Range/Units 11:00 WBC 17.3 H (4.0-11.0) 10^3/uL RBC 3.85 L (4.20-5.40) 10^6/uL Hgb 11.7 L (12.0-16.0) g/dL Hct 33.7 L (36.0-48.0) % MCV 87.5 (81.0-99.0) fL MCH 30.4 (26.7-34.0) pg MCHC 34.7 (29.9-35.2) g/dL RDW 12.1 (11.0-15.0) % Plt Count 178 (150-450) 10^3/uL MPV 11.8 (9.5-13.5) fL Neut % (Auto) 91.3 H (43.0-75.0) % Lymph % (Auto) 4.0 L (20.5-60.0) % [place] % (Auto) 4.0 (1.7-12.0) % Eos % (Auto) 0.1 L (0.9-7.0) % Baso % (Auto) 0.1 L (0.2-2.0) % Neut # (Auto) 15.8 H (1.4-6.5) 10^3/uL Lymph # (Auto) 0.7 L (1.2-3.8) 10^3/uL [place] # (Auto) 0.7 (0.3-0.8) 10^3/uL Eos # (Auto) 0.0 (0.0-0.7) 10^3/uL Baso # (Auto) 0.0 (0.0-0.1) 10^3/uL Abs Immat Gran (auto) 0.09 H (0.00-0.03) 10^3/uL Imm/Tot Granulo (auto) 0.5 (0.0-0.5) % PT 10.8 (9.0-11.6) sec INR 1.02 VBG pH 7.354 (7.330-7.430) VBG pCO2 41.7 (40.0-52.0) mmHg Sodium 136 (136-145) mmol/L Potassium 4.9 (3.5-5.1) mmol/L Chloride 99 (98-107) mmol/L Carbon Dioxide 22.3 (21.0-32.0) mmol/L Anion Gap 19.6 BUN 72.0 H (7.0-18.0) mg/dL Creatinine 2.58 H (0.55-1.02) mg/dL Est GFR ( Amer) 23 L (>=60 mL/min/1.73m^2) Est GFR (Non-Af Amer) 19 L (>=60 mL/min/1.73m^2) BUN/Creatinine Ratio 27.9 Glucose 81 (74-106) mg/dL Lactate 1.3 (0.4-2.0) mmol/L Calcium 9.3 (8.5-10.1) mg/dL Total Bilirubin 0.6 (0.2-1.0) mg/dL AST 25 (15-37) U/L ALT 23 (14-59) U/L Alkaline Phosphatase 90 (46-116) U/L Total Protein 7.3 (6.4-8.2) g/dL Albumin 2.7 L (3.4-5.0) g/dL Globulin 4.6 g/dL Albumin/Globulin Ratio 0.6 Discharge Plan Discharge Chief Complaint: Extremity Problem, Nontraumatic Clinical Impression: Infection of left foot, LEWIS (acute kidney injury) Patient Disposition: Admitted as Observation Time of Disposition Decision: 12:26 Condition: Fair
--- NOTE | 2025-06-28 12:24 | MR_ITS ---
The [address] [address] Patient Name: RITA COBB MRN: [id number] date: 1960 Sex: F Assigned Patient Location: MS Current Patient Location: MS Accession/Order Number: [id number] Exam Date: 06/28/2025 16:27 Report Date: 06/28/2025 16:39 At the request of: ISIAH FELIX MD Procedure: MR foot LT wo con MR foot LT wo con 06/28/2025 4:10 PM SIGNS AND SYMPTOMS: ^ruling out osteomyelitis, open wound beneath first base of the first tarsometatarsal junction, leukocytosis PROTOCOL: Multiplanar multisequence MR images of the left foot without IV contrast COMPARISON: 06/28/2025 FINDINGS: Lisfranc ligament: Severe degenerative changes are noted throughout the tarsometatarsal junctions.. Hallux: Osseous: There is hardware fixation across the first tarsometatarsal junction Extensor tendon: Normal. Flexor tendon: Normal. First metatarsophalangeal joint: Intact. Hallux-sesamoid complex: Intact. Second ray: Osseous: Normal. Extensor tendon: Normal. Flexor tendon: Normal. Second metatarsophalangeal joint: Intact. Plantar plate: Normal. Third ray: Osseous: Normal. Extensor tendon: Normal. Flexor tendon: Normal. Third metatarsophalangeal joint: Intact. Plantar plate: Normal. Fourth ray: Osseous: Normal. Extensor tendon: Normal. Flexor tendon: Normal. Fourth metatarsophalangeal joint: Intact. Plantar plate: Normal. Fifth ray: Osseous: Normal. Extensor tendon: Normal. Flexor tendon: Normal. Fifth metatarsophalangeal joint: Intact. Plantar plate: Normal. Interspaces: Interdigital (Ma) neuroma: None. Intermetatarsal bursitis: . Soft tissues: There is soft tissue edema with ulceration along the plantar aspect of the foot beneath the tarsometatarsal junctions extending to the plantar cortex of the fourth through fifth tarsometatarsal junctions. No significant marrow signal alteration is noted aside from sclerotic changes at the joint space. No definite MR evidence of osteomyelitis No evidence of abscess formation. Muscles: Normal. Bones: There is hardware fixation across the talonavicular joint and subtalar joint. Hardware contributes to artifact limiting fat suppression techniques. Nerves: Normal. Blood vessels: Normal. MR/MR foot LT wo con IMPRESSION: There is hardware fixation across the talonavicular joint and subtalar joint. Hardware contributes to artifact limiting fat suppression techniques and detection of marrow edema on fluid sensitive sequences. There is soft tissue edema with ulceration along the plantar aspect of the foot beneath the tarsometatarsal junctions extending to the plantar cortex of the fourth through fifth tarsometatarsal junctions. This is consistent with cellulitis. No definite abscess formation. Significant degenerative atherosclerotic changes are noted in the tarsometatarsal junctions without appreciable marrow edema. No definite evidence of osteomyelitis. Impression dictated by: Benton Levi M.D. 06/28/2025 4:39 PM Dictation Location: [place] [address] Electronically authenticated by: [id number] Y Date: 06/28/2025 16:39
[2025-06-28] MEDS: 0.9 % SODIUM CHLORIDE 1,000 ML 1000 ML IV (13:36)
[2025-06-28] MEDS: PIPERACILLIN SODIUM/TAZOBACTAM 4.5 GM in 0.9 % SODIUM CHLORIDE 50 ML IV (13:36)
--- NOTE | 2025-06-28 13:45 | PM.IMHP1 ---
Internal Medicine - H&P: HPI History of Present Illness Chief complaint: L FOOT INFECTION, LEWIS, LEUKOCYTOSIS Narrative: This is a 64-year-old female with past medical history of CAD with a stent to the mid LAD, type 2 diabetes, diabetic nephropathy and CKD due to diabetic nephropathy, history of diabetic foot infection with multiple reconstructive surgeries by Dr. Crane years ago, here for left diabetic foot infection. History obtained from the patient and her at bedside as well as from the ED staff and the patient's chart review. Patient states that around 3 weeks ago she developed a wound described as the ulcer in the sole of her left foot which was covered by callus, around a week after while she was having a shower she noticed that the callus got sloughed off and she was bleeding from that ulcer which became opened up at that time. 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 Few days ago the patient slipped and fell on her left foot but denies noticing any change in the first 24 hours after that fall. She woke up yesterday complaining of drainage of pus from that open ulcer as well as noticed that the left foot is swollen and very buffy and painful to touch. She would not bear weight on that left foot. Also noticed area of purplish discoloration which was new on the medial aspect of her left foot sole. Came to the podiatry office today was seen by the advanced provider and was recommended to come to the ED which she did. Patient denies any fever or chills or nausea or vomiting. here in the ED the left open wound was draining pus on my exam and was malodorous. Her CBC showed leukocytosis with ESR of 104. Platelets and hemoglobin are stable. Her CMP showed BUN of 72 creatinine of 2.58 and CRP of 29. Left foot x-ray showed soft tissue swelling involving the left ankle and foot with Charcot changes and hardware present. No hardware complication seen. No definite acute bony process or definitive plain film evidence of acute osteomyelitis. ED contacted podiatry on-call who recommended admission with IV antibiotics and possible procedure tomorrow. Discussed the plan with the patient and she will be admitted under hospitalist service for today. Review of Systems ROS Status of ROS 10 or more systems reviewed and unremarkable except as noted in history and below PFS PFS Family History (Updated 06/28/25 @ 13:49 by Blanca Cortez RN) Father Family history of CHF (congestive heart failure) Family history of hypertension Mother Family history of CHF (congestive heart failure) Uncle Family history of cancer Family history of stroke Grandfather Family history of cancer Grandmother Family history of myocardial infarction Family history of diabetes mellitus Social History (Updated 06/28/25 @ 13:51 by Blanca Cortez RN) Within the past year, how often did you have a drink containing alcohol: never Score interpretation: A score less than 3 is consistent with normal alcohol consumption. Smoking status: Never smoker Non-prescribed substance use: denies use Little interest or pleasure in doing things: not at all Feeling down, depressed, or hopeless: not at all Meds Home Medications and Allergies Home Medications ?Medication ?Instructions ?Recorded ?Confirmed ?Type allopurinol 100 mg tablet 100 mg PO DAILY 06/28/25 06/28/25 History aspirin 81 mg tablet 81 mg PO DAILY 06/28/25 06/28/25 History cholecalciferol (vitamin D3) 50 50 mcg PO DAILY 06/28/25 06/28/25 History mcg (2,000 unit) capsule insulin degludec 200 unit/mL (3 60 unit subcut DAILY 06/28/25 06/28/25 History mL) subcutaneous pen insulin lispro 100 unit/mL 10 unit subcut QAM 06/28/25 06/28/25 History subcutaneous pen (Humalog KwikPen (U-100) Insulin) insulin lispro 100 unit/mL 20 unit subcut QPM 06/28/25 06/28/25 History subcutaneous pen (Humalog KwikPen (U-100) Insulin) magnesium citrate-potassium tab PO 06/28/25 History citrate ER 7.5 mEq tablet,extended release (CitraTabs) metoprolol succinate 200 mg 200 mg PO .QHS 06/28/25 06/28/25 History tablet,extended release 24 hr olmesartan 40 mg tablet 40 mg PO DAILY 06/28/25 06/28/25 History omega-3 acid ethyl esters 1 gram 2 cap PO BID 06/28/25 06/28/25 History capsule pen needle, diabetic 31 gauge x 06/28/25 06/28/25 History 5/16 (Unifine Pentips) pregabalin 150 mg capsule 150 mg PO BID 06/28/25 06/28/25 History rosuvastatin 10 mg tablet 10 mg PO .3 times a week 06/28/25 06/28/25 History tizanidine 4 mg tablet 4 mg PO .qhs PRN muscle spasticity 06/28/25 06/28/25 History tramadol 50 mg tablet 50 mg PO BID PRN pain 06/28/25 06/28/25 History Allergies Allergy/AdvReac Type Severity Reaction Status Date / Time erythromycin base AdvReac Intermediate Rash Verified 06/28/25 10:41 levofloxacin (From Levaquin) AdvReac Intermediate sob Verified 06/28/25 10:41 Exam Narrative Exam Narrative: General: The patient appears well and in no apparent distress. Patient is resting comfortably Eye: Normal conjunctiva, no drainage, EOMI. PERRL Ears, Nose, Mouth, and Throat: oral mucosa is moist. Nares patent. Mouth without vesicles. Cardiovascular: Regular Rate and Rhythm, no murmur, gallop, rub Respiratory: Patient is in no distress, no accessory muscle use, lungs are clear to auscultation, no wheezing, rales or rhonchi Back: non-tender, no CVA tenderness bilaterally to percussion. No CT LS midline pain GI: Soft, no tenderness to palpation, no masses appreciated. No rebound, guarding, or rigidity noted. No distention Musculoskeletal: Patient has open wound of 1.5 x 1 cm over the head of the fourth metatarsal, with drainage of pus, malodorous drainage, also patient has blackish/eschar/early ulceration to the medial aspect of the left foot. No crepitus on exam. Does have left foot swelling with erythema and tenderness to palpation. Intact. Pulses bilaterally. Neurological: A&O x4, normal speech Constitutional Vital Signs, click to edit/add: Last Vital Signs Temp 99.3 F 06/28/25 10:41 Pulse 78 06/28/25 10:41 Resp 18 06/28/25 10:41 BP 102/68 06/28/25 10:41 Pulse Ox 97 06/28/25 10:41 Internal Medicine - H&P: Reslt Labs Labs: Short CBC 06/28/25 Range/Units 11:00 WBC 17.3 H (4.0-11.0) 10^3/uL Hgb 11.7 L (12.0-16.0) g/dL Hct 33.7 L (36.0-48.0) % Plt Count 178 (150-450) 10^3/uL BMP 06/28/25 11:00 Sodium 136 Potassium 4.9 Chloride 99 Carbon Dioxide 22.3 BUN 72.0 H Creatinine 2.58 H Glucose 81 Calcium 9.3 Liver Function 06/28/25 Range/Units 11:00 Total Bilirubin 0.6 (0.2-1.0) mg/dL AST 25 (15-37) U/L ALT 23 (14-59) U/L Alkaline Phosphatase 90 (46-116) U/L Albumin 2.7 L (3.4-5.0) g/dL Assessment and Plan Assessment and Plan (1) LEWIS (acute kidney injury): (2) Infection of left foot: Plan Diabetic foot infection in the setting of diabetic neuropathy Ruling out osteomyelitis CKD no evidence of LEWIS - Admit patient to medical floor telemetry - Start IV vancomycin and IV Zosyn to be dosed by pharmacy - Continue with IV NS 50 mL/h for total of 1 L - Podiatry consulted as they are aware of the patient and patient to be made n.p.o. after midnight as per podiatry recommendation for possible intervention - Obtain arterial Doppler to better delineate the patient vascular supply to the left foot to assess the chances for healing - PT/OT eval - Wound consulted wound care - Full code - DVT/GI prophylaxis addressed - Discussed the plan in detail with the patient and her . Answered all the questions.
--- NOTE | 2025-06-28 13:59 | PHOTOS ---
left lateral foot
--- OUTSIDE RECORDS SUMMARY | 2025-06-28 14:14 | XMS_ITS | Encounter Summary ---
Author Organization [facility] Address [address] [place] [id number] Phone Care Team Providers Care Account Representative Name Role Phone Charan Delgadillo DO Primary Care Provider [phone] Charan Delgadillo DO Primary Care Provider [phone] Rosalinda Cordova MD Unavailable [phone] Encounter Details Date Type Department Care Team (Late st Contact Info) Description 04/17/2020 Orders Only [facility] [address] [place] [address] Conversion, Onbase Social History Tobacco Use Types [...] EST Office Visit [facility] [address] [address] Rosalinda Cordova MD [address] [facility] [address] [place] [address] Scheduled Orders Name Type Priority Associated Diagnoses Orde r Schedule OUTSIDE LAB SCAN Lab Ordered: 04/17/2020 documented as of this encounter Visit Diagnoses Not on filedocumented in this encounter Care Teams Account Representative Relationship Specialty Start Date End Date Charan Delgadillo DO PCP - General 07/09/20 02/21/24 Charan Delgadillo DO PCP - General Family Medicine 02/22/24 Rosalinda Cordova MD 703 [facility] [address], [place] [address] Consulting Physician Cardiology 02/22/24 documented as of this encounter
--- OUTSIDE RECORDS SUMMARY | 2025-06-28 14:14 | XMS_ITS | Encounter Summary ---
Author Organization [facility] Address [address] [place] [address] Phone Care Team Providers Care Acid Washer Operator Name Role Phone Yeison Delgadilloan Dani BASSETT Primary Care Provider [phone] Rosalinda Cordova MD Unavailable [phone] Encounter Details Date Type Department Care Team (Late st Contact Info) Description 02/29/2024 Scanned Document [facility] [address] [place] [address] Scanning, Generic Provider Social History [...] Description 11/03/2025 2:30 PM EST Office Visit [facility] 703 [facility] [address] [place] [address] Rosalinda Cordova MD [address]03 [facility] [address] [place] [address] documented as of this encounter Visit Diagnoses Not on filedocumented in this encounter Additional Health Concerns Assessment Noted Time A fall risk assessment has been complete d for the patient 02/22/2024 2:26 PM EDT documented as of this encounter Care Teams Acid Washer Operator Relationship Specialty Start Date End Date Charan Delgadillo DO PCP - General Family Medicine 02/22/24 Rosalinda Cordova MD 703 [facility] [address], [place] [address] Consulting Physician Cardiology 02/22/24 documented as of this encounter
--- OUTSIDE RECORDS SUMMARY | 2025-06-28 14:14 | XMS_ITS | Encounter Summary ---
Author Organization [facility] Address [address] [place] [id number] Phone Care Team Providers Care Golf Technician Name Role Phone Charan Delgadillo DO Primary Care Provider [phone] Charan Delgadillo DO Primary Care Provider [phone] Rosalinda Cordova MD Unavailable [phone] Encounter Details Date Type Department Care Team (Late st Contact Info) Description 04/30/2022 Orders Only [facility] [address] [place] [address] Conversion, Onbase Social History Tobacco Use Types [...] Visit [facility] 703 [facility] [address] [place] [address] Rosalinda Cordova MD [address]03 [facility] [address] [place] [address] Scheduled Orders Name Type Priority Associated Diagnoses Orde r Schedule SLEEP STUDY ORDER - ONBASE SCAN Sleep Center Ordered: 022 documented as of this encounter Visit Diagnoses Not on filedocumented in this encounter Care Teams Golf Technician Relationship Specialty Start Date End Date Charan Delgadillo DO PCP - General 07/09/20 02/21/24 Charan Delgadillo DO PCP - General Family Medicine 02/22/24 Rosalinda Cordova MD 703 [facility] [address], [place] [address] Consulting Physician Cardiology 02/22/24 documented as of this encounter
--- OUTSIDE RECORDS SUMMARY | 2025-06-28 14:14 | XMS_ITS | Encounter Summary ---
Author Organization [facility] Address [address] [place] [address] Phone Care Team Providers Care Sales Broker Name Role Phone Yeison Delgadilloan Dani BASSETT Primary Care Provider [phone] Rosalinda Cordova MD Unavailable [phone] Encounter Details Date Type Department Care Team (Late st Contact Info) Description 12/08/2024 Scanned Document [facility] [address] [place] [address] Scanning, Generic Provider Social History [...] Description 11/03/2025 2:30 PM EST Office Visit [facility] [address] [address] Rosalinda Cordova MD 703 [facility] 2, [address] [place] [address] documented as of this encounter [...] documented as of this encounter Care Teams Sales Broker Relationship Specialty Start Date End Date Charan Delgadillo DO PCP - General Family Medicine 02/22/24 Rosalinda Cordova MD 703 [facility] 2, [place] [id number] Consulting Physician Cardiology 02/22/24 documented as of this encounter
--- OUTSIDE RECORDS SUMMARY | 2025-06-28 14:14 | XMS_ITS | Encounter Summary ---
Author Organization [facility] Address [address] [place] [phone] Phone Care Team Providers Care Mercerizer Name Role Phone Charan Delgadillo DO Primary Care Provider [phone] Charan Delgadillo DO Primary Care Provider [phone] Rosalinda Cordova MD Unavailable [phone] Encounter Details Date Type Department Care Team (Late st Contact Info) Description 06/19/2020 Orders Only [facility] [address] Virtual Department [address] Conversion, Onbase Social History Tobacco Use Types [...] EST Office Visit [facility] [address] [address] Rosalinda Cordova MD [address] [facility] [address], [address] [place] [address] Scheduled Orders Name Type Priority Associated Diagnoses Orde r Schedule OUTSIDE LAB SCAN Lab Ordered: 06/19/2020 documented as of this encounter Visit Diagnoses Not on filedocumented in this encounter Care Teams Mercerizer Relationship Specialty Start Date End Date Charan Delgadillo DO PCP - General 07/09/20 02/21/24 Charan Delgadillo DO PCP - General Family Medicine 02/22/24 Rosalinda Cordova MD 703 [facility] 2, [place] [address] Consulting Physician Cardiology 02/22/24 documented as of this encounter
--- OUTSIDE RECORDS SUMMARY | 2025-06-28 14:14 | XMS_ITS | Encounter Summary ---
Author Organization [facility] Address [address] [place] [phone] Phone Care Team Providers Care Patternmaker Name Role Phone Charan Delgadillo DO Primary Care Provider [phone] Charan Delgadillo DO Primary Care Provider [phone] Rosalinda Cordova MD Unavailable [phone] Encounter Details Date Type Department Care Team (Late st Contact Info) Description 08/13/2022 Orders Only [facility] [address] [place] [address] Conversion, Onbase Social History Tobacco Use Types [...] Description 11/03/2025 2:30 PM EST Office Visit [facility] 703 [facility] 250 [place] [address] Rosalinda Cordova MD 703 [facility] 2, [address] [place] [address] Scheduled Orders Name Type Priority Associated Diagnoses Orde r Schedule OUTSIDE LAB SCAN Lab Ordered: 08/13/2022 documented as of this encounter Visit Diagnoses Not on filedocumented in this encounter Care Teams Patternmaker Relationship Specialty Start Date End Date Charan Delgadillo DO PCP - General 07/09/20 02/21/24 Charan Delgadillo DO PCP - General Family Medicine 02/22/24 Rosalinda Cordova MD 703 [facility] 2, [place] [address] Consulting Physician Cardiology 02/22/24 documented as of this encounter
--- OUTSIDE RECORDS SUMMARY | 2025-06-28 14:14 | XMS_ITS | Clinical Summary ---
Author Organization [facility] Address [address] [place], [place] [phone] Care Team Providers Care Regional Office Coordinator Name Role Phone Charan Delgadillo DO Primary Care Provider [phone] Allergies Active Allergy Reactions Criticality Noted Date [...] of 2) 2010 Diabetes Screening 11/29/2015 11/29/2012 Influenza Vaccine (#1) 2025 RSV Vaccine (1 - 1-dose 75+ series) 2035 Procedures Procedure Name Priority Date/Time Associated Diagnosis Comments BASIC METABOLIC PANEL Routine 11/29/2012 10:11 AM EST Hyperparathyroidism, unspecified Preoperative examination, unspecified from Last 3 Months or Most Recently Relevant to Health Maintenance Results * (ABNORMAL) BASIC METABOLIC PNL (11/29/2012 10:11 AM EST) Glucose 316(H) 65 - 100 mg/dL [facility] BUN 15 8 - 25 mg/dL [facility] Creatinine 0.78 0.70 - 1.40 mg/dL [facility] Sodium 135 132 - 148 mmol/L [facility] Potassium 4.4 3.5 - 5.0 mmol/L [facility] Chloride 96(L) 98 - 110 mmol/L [facility] CO2 23 23 - 32 mmol/L [facility] Anion Gap 16(H) 0 - 15 mmol/L [facility] Calcium 11.4(H) 8.5 - 10.5 mg/dL [facility] eGFR- >60 [facility] eGFR-All Other Races >60 . [facility] Comment: eGFR (Estimated GFR) Units of [...] EST Dorothy Renteria MD LABORATORY Final Result [facility] [address] [place] [address] from Last 3 Months or Most Recently Relevant to Health Maintenance Insurance [employer] Care Teams Regional Office Coordinator Relationship Specialty Start Date End Date Charan Delgadillo DO [address] [place] [address] PCP - General Family Medicine 11/08/12
--- OUTSIDE RECORDS SUMMARY | 2025-06-28 14:14 | XMS_ITS | Encounter Summary ---
Author Organization [facility] Address [address] [place] [address] Phone Care Team Providers Care Bag Making Machine Tender Name Role Phone Charan Delgadillo DO Primary Care Provider [phone] Charan Delgadillo DO Primary Care Provider [phone] Rosalinda Cordova MD Unavailable Encounter Details Date Type Department Care Team (Late st Contact Info) Description 11/26/2023 Scanned Document [facility] [address] [place] [id number] Scanning, Generic Provider Social History Tobacco Use [...] Description 11/03/2025 2:30 PM EST Office Visit [facility] [address] [facility] [address] [place] [address] Rosalinda Cordova MD 703 [facility] 2, [address] [place] [address] documented as of this encounter Visit Diagnoses Not on filedocumented in this encounter Care Teams Bag Making Machine Tender Relationship Specialty Start Date End Date Charan Delgadillo DO PCP - General 07/09/20 02/21/24 Charan Delgadillo DO PCP - General Family Medicine 02/22/24 Rosalinda Cordova MD 703 [facility] 2, [place] [address] Consulting Physician Cardiology 02/22/24 documented as of this encounter
--- OUTSIDE RECORDS SUMMARY | 2025-06-28 14:14 | XMS_ITS | Encounter Summary ---
Author Organization [facility] Address [address] [place] [address] Phone Care Team Providers Care Section Forest Fire Warden Name Role Phone Charan Delgadillo DO Primary Care Provider [phone] Charan Delgadillo DO Primary Care Provider [phone] Rosalinda Cordova MD Unavailable [phone] Encounter Details Date Type Department Care Team (Late st Contact Info) Description 12/30/2023 Scanned Document [facility] [address] [place] [address] Scanning, Generic Provider Social History Tobacco Use [...] 11/03/2025 2:30 PM EST Office Visit [facility] 703 [facility] 250 [place] [address] Rosalinda Cordova MD 703 [facility] 2, [address] [place] [address] documented as of this encounter Procedures Procedure Name Priority Date/Time Associated Diagnosis Comments OUTSIDE IMAGING SCAN 12/30/2023 documented in this encounter Results * OUTSIDE IMAGING SCAN (12/30/2023) Anatomical Region Laterality Modality Other Narrative 12/30/2023 Ordered by an unspecified provider. us Generic Provider Scanning OUTSIDE SCAN Final Result documented in this encounter Visit Diagnoses Not on filedocumented in this encounter Care Teams Section Forest Fire Warden Relationship Specialty Start Date End Date Charan Delgadillo DO PCP - General 07/09/20 02/21/24 Charan Delgadillo DO PCP - General Family Medicine 02/22/24 Rosalinda Cordova MD 703 [facility] 2, [address] [address] Consulting Physician Cardiology 02/22/24 documented as of this encounter
--- OUTSIDE RECORDS SUMMARY | 2025-06-28 14:14 | XMS_ITS | Encounter Summary ---
Author Organization [facility] Address [address] [place] [phone] Phone Care Team Providers Care Licensed Home Inspector Name Role Phone Charan Delgadillo DO Primary Care Provider [phone] Charan Delgadillo DO Primary Care Provider [phone] Rosalinda Cordova MD Unavailable [phone] Encounter Details Date Type Department Care Team (Late st Contact Info) Description 03/06/2023 Orders Only [facility] [address] [place] [address] Conversion, Onbase Social History Tobacco Use Types [...] Description 11/03/2025 2:30 PM EST Office Visit [facility] 703 [facility] 250 [place] [address] Rosalinda Cordova MD 703 [facility] 2, [address] [place] [address] Scheduled Orders Name Type Priority Associated Diagnoses Orde r Schedule OUTSIDE LAB SCAN Lab Ordered: 03/06/2023 documented as of this encounter Visit Diagnoses Not on filedocumented in this encounter Care Teams Licensed Home Inspector Relationship Specialty Start Date End Date Charan Delgadillo DO PCP - General 07/09/20 02/21/24 Charan Delgadillo DO PCP - General Family Medicine 02/22/24 Rosalinda Cordova MD 703 [facility] 2, [place] [address] Consulting Physician Cardiology 02/22/24 documented as of this encounter
--- OUTSIDE RECORDS SUMMARY | 2025-06-28 14:14 | XMS_ITS | Clinical Summary ---
Author Organization [facility] Address [address] [place] [address] Phone Care Team Providers Care Respite Worker Name Role Phone Charan Delgadillo DO Primary Care Provider [phone] Rosalinda Cordova MD Unavailable [phone] Allergies Active Allergy Reactions Criticality Noted Date [...] daily. Active ergocalciferol (Vitamin D-2) 1.25 MG (20564 UT) capsule Take 1 capsule (50,000 Units) [...] 10 mg tabletIndications :Atherosclerotic heart disease of [place] coronary artery without angina pectoris Take 1 [...] EST Office Visit [facility] [address] [address] Rosalinda Cordova MD 703 [facility], [address] [place] [address] Health Maintenance Due Date Last Done Comments [...] patient's age to complete this topic Insurance [facility] [employer] MEDICARE [employer] [place] MEDICARE [facility] [employer] MEDICARE [employer] [place] MEDICARE Care Teams Respite Worker Relationship Specialty Start Date End Date Charan Delgadillo DO PCP - General Family Medicine 02/22/24 Rosalinda Cordova MD 703 [facility] 2, [place] [phone] Consulting Physician Cardiology 02/22/24
--- OUTSIDE RECORDS SUMMARY | 2025-06-28 14:15 | XMS_ITS | Encounter Summary ---
Author Organization [facility] Address [address] [place] [address] Phone Care Team Providers Care Resource Protection Specialist Name Role Phone Charan Delgadillo DO Primary Care Provider [phone] Charan Delgadillo DO Primary Care Provider [phone] Rosalinda Cordova MD Unavailable [phone] Encounter Details Date Type Department Care Team (Late Contact Info) Description 02/19/2022 Orders Only [facility] [address] [place] [address] Conversion, Onbase Social History Tobacco Use Types [...] Description 11/03/2025 2:30 PM EST Office Visit [facility] 703 [facility] [address] [place] [address] Rosalinda Cordova MD 703 [facility] 2, [address] [place] [address] Scheduled Orders Name Type Priority Associated Diagnoses Orde r Schedule OUTSIDE LAB SCAN Lab Ordered: 02/19/2022 documented as of this encounter Visit Diagnoses Not on filedocumented in this encounter Care Teams Resource Protection Specialist Relationship Specialty Start Date End Date Charan Delgadillo DO PCP - General 07/09/20 02/21/24 Charan Delgadillo DO PCP - General Family Medicine 02/22/24 Rosalinda Cordova MD 703 [facility] 2, [place] [phone] Consulting Physician Cardiology 02/22/24 documented as of this encounter
--- OUTSIDE RECORDS SUMMARY | 2025-06-28 14:15 | XMS_ITS | Encounter Summary ---
Author Organization [facility] Address [address] [place] [phone] Phone Care Team Providers Care Automation Control Technician Name Role Phone Charan Delgadillo DO Primary Care Provider [phone] Charan Delgadillo DO Primary Care Provider [phone] Rosalinda Cordova MD Unavailable Encounter Details Date Type Department Care Team (Late st Contact Info) Description 03/25/2022 Orders Only [facility] [address] [place] [address] Conversion, Onbase Social History Tobacco Use Types [...] [facility] [address] [address] Rosalinda Cordova MD 703 [facility] 2, [address] [place] [address] Scheduled Orders Name Type Priority Associated Diagnoses Orde r Schedule OUTSIDE LAB SCAN Lab Ordered: 03/25/2022 OUTSIDE LAB SCAN Lab Ordered: 03/25/2022 OUTSIDE LAB SCAN Lab Ordered: 03/25/2022 documented as of this encounter Visit Diagnoses Not on filedocumented in this encounter Care Teams Automation Control Technician Relationship Specialty Start Date End Date Charan Delgadillo DO PCP - General 07/09/20 02/21/24 Charan Delgadillo DO PCP - General Family Medicine 02/22/24 Rosalinda Cordova MD 3 [facility] 2, [address] [address] Consulting Physician Cardiology 02/22/24 documented as of this encounter
--- OUTSIDE RECORDS SUMMARY | 2025-06-28 14:15 | XMS_ITS | Encounter Summary ---
Author Organization [facility] Address [address] [place] [phone] Phone Care Team Providers Care Track Equipment Operator Name Role Phone Charan Delgadillo DO Primary Care Provider [phone] Charan Delgadillo DO Primary Care Provider [phone] Rosalinda Cordova MD Unavailable [phone] Encounter Details Date Type Department Care Team (Late st Contact Info) Description 10/22/2021 Orders Only [facility] [address] [place] [address] Conversion, Onbase Social History Tobacco Use Types [...] Office Visit [facility] 703 [facility] 250 [place] [address] Rosalinda Cordova MD 703 [facility] 2, [address] [place] [address] Scheduled Orders Name Type Priority Associated Diagnoses Orde r Schedule SLEEP STUDY ORDER - ONBASE SCAN Sleep Center Ordered: 021 documented as of this encounter Visit Diagnoses Not on filedocumented in this encounter Care Teams Track Equipment Operator Relationship Specialty Start Date End Date Charan Delgadillo DO PCP - General 07/09/20 02/21/24 Charan Delgadillo DO PCP - General Family Medicine 02/22/24 Rosalinda Cordova MD 703 [facility] 2, [place] [address] Consulting Physician Cardiology 02/22/24 documented as of this encounter
--- OUTSIDE RECORDS SUMMARY | 2025-06-28 14:15 | XMS_ITS | Encounter Summary ---
Author Organization [facility] Address [address] [place] [phone] Phone Care Team Providers Care Drafter Geophysical Name Role Phone Charan Delgadillo DO Primary Care Provider [phone] Charan Delgadillo DO Primary Care Provider [phone] Rosalinda Cordova MD Unavailable [phone] Encounter Details Date Type Department Care Team (Late st Contact Info) Description 11/19/2021 Orders Only [facility] [address] [place] [address] Conversion, Onbase Social History Tobacco Use Types [...] Description 11/03/2025 2:30 PM EST Office Visit [facility] 703 [facility] 250 [place] [address] Rosalinda Cordova MD 703 [facility] 2, [address] [place] [address] Scheduled Orders Name Type Priority Associated Diagnoses Orde r Schedule OUTSIDE LAB SCAN Lab Ordered: 11/19/2021 documented as of this encounter Visit Diagnoses Not on filedocumented in this encounter Care Teams Drafter Geophysical Relationship Specialty Start Date End Date Charan Delgadillo DO PCP - General 07/09/20 02/21/24 Charan Delgadillo DO PCP - General Family Medicine 02/22/24 Rosalinda Cordova MD 703 [facility] 2, [place] [address] Consulting Physician Cardiology 02/22/24 documented as of this encounter
--- NOTE | 2025-06-28 14:31 | SWNOTE1 ---
Important Message from Medicare reviewed and discussed with patient. Pt. verbalized understanding and signed the form. Original given to patient and copy placed in patient?s chart.
--- NOTE | 2025-06-28 14:32 | SWNOTE1 ---
SW and I met with pt in room to discuss potential d/c needs. Pt's was at bedside as well. Pt is from home where she lives with her and son. There are steps to get into the home and one level once inside. Pt voiced she does have a knee scooter she uses when she is out of the house, it is hard to use it in the home. She has never had services like home health. Pt voiced she has a good support system. Pt does not have any needs for d/c at this time. SW to follow as needed.
[2025-06-28] MEDS: 0.9 % SODIUM CHLORIDE 500 ML 50 ML IV (16:37)
--- NOTE | 2025-06-28 16:59 | DIETREC ---
Recommend 1800 kcal CCD diet.
[2025-06-28] MEDS: HEPARIN SODIUM (PORCINE) 5,000 UNIT/ML VIAL 5000 UNIT SUBQ (20:29)
[2025-06-28] MEDS: TIZANIDINE HCL 4 MG TABLET PO (20:29)
[2025-06-28] MEDS: TRAMADOL HCL 50 MG TABLET PO (20:29)
[2025-06-28] MEDS: PREGABALIN 75 MG CAPSULE 150 MG PO (20:29)
[2025-06-28] MEDS: METOPROLOL SUCCINATE 100 MG TAB.ER.24H 200 MG PO (21:49)
[2025-06-28] MEDS: ATORVASTATIN CALCIUM 40 MG TABLET PO (21:49)
[2025-06-29] VITALS (14 sets, daily range): BP systolic 122–151; BP diastolic 72–97; PULSE 65–85; TEMP 36.1–36.6; O2SAT 93–95
[2025-06-29] MEDS: PIPERACILLIN SODIUM/TAZOBACTAM 3.375 GM in 0.9 % SODIUM CHLORIDE 50 ML IV ×3 (02:17→17:12)
[2025-06-29 04:20] LABS: A. calcoaceticus-baumannii Cpx NOT DETECTED (NOT DETECTE); Bacteroides fragilis NOT DETECTED (NOT DETECTE); Candida auris NOT DETECTED (NOT DETECTE); Candida glabrata NOT DETECTED (NOT DETECTE); Enterobacterales NOT DETECTED (NOT DETECTE); Enterococcus faecalis NOT DETECTED (NOT DETECTE); Enterococcus faecium NOT DETECTED (NOT DETECTE); Klebsiella aerogenes NOT DETECTED (NOT DETECTE); Klebsiella pneumoniae group NOT DETECTED (NOT DETECTE); Proteus spp. NOT DETECTED (NOT DETECTE); Salmonella spp. NOT DETECTED (NOT DETECTE); Serratia marcescens NOT DETECTED (NOT DETECTE); Staphylococcus epidermidis NOT DETECTED (NOT DETECTE); Staphylococcus lugdunensis NOT DETECTED (NOT DETECTE); Stenotrophomonas maltophilia NOT DETECTED (NOT DETECTE); Streptococcus pyogenes NOT DETECTED (NOT DETECTE); Streptococcus spp. NOT DETECTED (NOT DETECTE)
[2025-06-29 05:34] LABS: Hematocrit 31.1 % (36.0-48.0); Hemoglobin 10.6 g/dL (12.0-16.0); Immature Granulocytes Abs Auto 0.05 10^3/uL (0.00-0.03); Immature Granulocytes Pct Auto 0.3 % (0.0-0.5); Lymphocytes Absolute Auto 0.7 10^3/uL (1.2-3.8); Mean Corpuscular HGB Conc 34.1 g/dL (29.9-35.2); Mean Corpuscular Hemoglobin 30.1 pg (26.7-34.0); Mean Corpuscular Volume 88.4 fL (81.0-99.0); Platelet Count 178 10^3/uL (150-450); Red Blood Count 3.52 10^6/uL (4.20-5.40); White Blood Count 14.5 10^3/uL (4.0-11.0)
[2025-06-29 05:34] LABS: Source BLOOD; mecA/C and MREJ (MRSA) DETECTED (NOT DETECTE)
[2025-06-29 05:35] LABS: Staphylococcus spp. DETECTED (NOT DETECTE)
[2025-06-29 06:05] LABS: Alanine Aminotransferase 17 U/L (14-59); Albumin Globulin Ratio 0.5; Albumin Level 2.1 g/dL (3.4-5.0); Alkaline Phosphatase 88 U/L (46-116); Anion Gap 16.9; Aspartate Amino Transferase 14 U/L (15-37); Blood Urea Nitrogen 62.0 mg/dL (7.0-18.0); Calcium 8.9 mg/dL (8.5-10.1); Carbon Dioxide 21.2 mmol/L (21.0-32.0); Chloride 104 mmol/L (98-107); Estimated GFR (African America 37 (>=60 mL/min/1.73m^2); Estimated GFR (Non-African Ame 31 (>=60 mL/min/1.73m^2); Globulin 4.3 g/dL; Glucose 201 mg/dL (74-106); Magnesium 1.9 mg/dL (1.8-2.4); Potassium 5.1 mmol/L (3.5-5.1); Sodium 137 mmol/L (136-145); Total Protein 6.4 g/dL (6.4-8.2)
--- NOTE | 2025-06-29 07:22 | ECG_ITS ---
The [facility] Test Date: 2025-06-29 Pat Name: RITA COBB Department: Room: [facility] Gender: Female Wholesale Manager: : 1960 Requested By: Charan Delgadillo Order Number: [id number] Reading MD: JEREMY ANDINO M.D. Measurements Intervals [place] Rate: 67 P: 15 [place]: 166 QRS: 3 QRSD: 82 T: 25 QT: 373 QTc: 395 Interpretive Statements SINUS RHYTHM LOW QRS VOLTAGE IN PRECORDIAL LEADS [QRS DEFLECTION < 1.0 mV IN CHEST LEADS] Borderline ECG Compared to ECG 12/23/2022 12:00:50 No significant changes Electronically Signed On 06-29-2025 21:01:51 EDT by JEREMY ANDINO M.D.
--- NOTE | 2025-06-29 09:30 | CM.NOTE ---
Rounds made with Dr. Lyons, pt will go to OR today for surgical procedure. Pt verbalizes understanding. Dr. Lyons also spoke with pt regarding positive blood culture and awaiting final cultures. PT and OT will evaluate pt after OR prior to discharge for recommendations.
--- NOTE | 2025-06-29 11:53 | XR_ITS ---
The [address] [address] Patient Name: RITA COBB MRN: [id number] date: 1960 Sex: F Assigned Patient Location: [place] Current Patient Location: [place] Accession/Order Number: [id number] Exam Date: 06/30/2025 09:33 Report Date: 06/30/2025 09:51 At the request of: ACOSTA CASTRO DPCarmen Procedure: XR foot LT min 3V LEFT FOOT - 3 views CLINICAL HISTORY: diabetic foot infection COMPARISON: Left foot 06/28/2025 FINDINGS: Splint is in place. Diffuse soft tissue swelling is present. There appears be an ulcer along the plantar aspect of the foot. Charcot changes are present with hardware fixation involving the midfoot and hindfoot without hardware complication such as fracture. Foot configuration is grossly similar to the prior study however bony detail is limited due to the splint material in place. XR/XR foot LT min 3V IMPRESSION: DIFFUSE SOFT TISSUE SWELLING WITH WHAT APPEARS TO BE AN ULCER ALONG THE PLANTAR ASPECT OF THE FOOT. HARDWARE IS SEEN INVOLVING THE HINDFOOT AND MIDFOOT WITHOUT HARDWARE COMPLICATION WITH CHARCOT CHANGES PRESENT. THE CONFIGURATION IS SIMILAR TO THE PRIOR STUDY. Impression dictated by: Sudhir Brown Jr., D.O. 06/30/2025 9:51 AM Dictation Location: [place] [address] Electronically authenticated by: [id number] Y Date: 06/30/2025 09:51
--- NOTE | 2025-06-29 11:54 | P.ORON_ITS ---
Brief Operative Note Date of procedure: 06/29/25 Pre-op diagnosis general: Left diabetic foot infection with draining abscess and ulceration down to and including fat, fascia and muscle Post-op diagnosis: same as pre-op Procedure: Procedure performed: Left foot ulcer debridement down to and including plantar fascia, application of short leg splint and injection of local anesthetic for ankle block Indications for procedure: Mrs. Gunter is a 64-year-old type II diabetic female with history of bilateral Charcot foot who underwent left foot reconstruction in November 2022. Most recently she developed an ulceration on plantar lateral foot and has been undergoing local wound care for that ulceration. On 06/24/2025 she had a slip and fall while at a [employer]'s campsite and the following day she noticed some degree of swelling and bruising but then on 06/27/2025 she began feeling ill and noticed increased swelling, erythema and a new blister on plantar medial foot. On the following day she presented to the wound center and was evaluated by Nuria Dorman PA-c who obtained a culture from purulent drainage and ultimately sent Joy to the emergency department for further workup. At presentation she has severe elevation in inflammatory markers and leukocytosis. X-rays showed no hardware complication or osseous changes consistent with osteomyelitis. MRI was also obtained which suggested cellulitis and no definitive abscess or osseous change. Arterial ultrasound revealed mild distal peripheral arterial disease of the left lower extremity. Preliminary blood cultures have demonstrated MRSA from 1 bottle but remaining specimens are still pending. Soft tissue swab obtained to the wound center is pending. Since admission patient is feeling improved and WBC is trending down as patient is receiving vancomycin and Zosyn. At bedside preoperatively I explained the seriousness of Mrs. Asher's condition specifically that of a severe diabetic foot infection which could be limb and life-threatening. In order to clear infection I recommended surgical intervention and the above procedure which patient provided consent to. Intraoperative findings: Superficial blister was deroofed and noted a partial- thickness ulceration of 3.8 x 2.1 cm and did not appear to communicate with the plantar lateral ulceration. Prior to debridement the plantar lateral ulceration measured 2.5 x 2.0 cm and tracked medially and laterally with active purulent drainage. The plantar fascia was exposed but appeared healthy. Muscle exposure noted to the medial and lateral aspects of the plantar fascia also appeared healthy. Nonviable necrotic tissue noted at the wound base and predominantly tracked immediately. No bone exposure. All nonviable and questionable tissue was excised Procedure in detail: Patient was identified peripherally by myself which time correct side site were marked and consent was obtained. No additional antibiotics were given as patient is receiving scheduled antibiotics on the floor. She is brought back to the operating theater placed on table in supine position. IV sedation was administered and the left lower extremity was prepped and draped with an ankle tourniquet (which was not inflated during the procedure) in the usual sterile fashion. Formal timeout was performed. Ankle block was performed with 10 cc of 1% lidocaine plain and 10 cc 0.5% Marcaine plain. With attention to the left plantar foot the new blister was deroofed noting primarily serous drainage with scant amount of blood. No deep soft tissue or bone exposure. Underlying tissue appeared healthy. Then with attention to the plantar lateral foot ulcer, sharply the ulceration was excised and a 3-1 ellipse noting scant purulence which tracked along the fascial planes medially. The incision was then extended medially and all purulence was drained and irrigated with copious saline. Then all questionable nonviable soft tissue which included fat and fascia including the plantar fascia was excised with scalpel and forceps as well as a rongeur. The plantar fascia was notably exposed and debridement with rongeurs and curettes noted healthy fascia. The incision was extended medially exposing the plantar medial musculature which appeared to be healthy. The ulcer also tracked laterally therefore the incision was extended laterally over the glabrous skin junction of the foot. All questionable soft tissue was excised but there was no siri necrosis or purulence extending laterally. The surgical site was irrigated with 3 L of normal saline pulse lavage and inspection revealed only healthy bleeding tissue. Following the debridement the ulcer on the plantar foot measured 11.5 x 3.5 cm. There is no bone exposure. 1 g of vancomycin powder was placed into the surgical site then skin suture was placed medial and lateral to the original ulcer site for hemostasis. The ulcer was then packed open with Betadine soaked Kerlix. Then a multilayer posterior splint consisting of 4 x 4 gauze, ABD, multiple layers of cast padding followed by a layer of Michael wrap's and additional layers of cast padding, then plaster splint material was placed in the plantar foot and extended to the posterior calf which was held in place by an additional layer of Michael wrap's. Patient tolerated the procedure and anesthesia well and was transported to the recovery room with vital signs stable and brisk capillary refill to the toes Postoperative plan: Transfer to medical surgical unit under the hospitalist's care Continue broad-spectrum antibiotics also managed by the hospitalist Nonweightbearing left foot Elevate left foot above the level of the heart Keep splint clean dry and intact and reinforce as necessary No additional surgery planned during this hospital stay Will follow Implants: 1 gm vancomycin powder placed into the surgical site Anesthesia: MAC Surgeon: Torres Fernandez Pharmaceutical Representative: Grace Magdaleno Estimated blood loss (mL): 100 Tourniquet time (min): 0 Pathology: other (Soft tissue sent to microbiology for culture) Condition: stable Disposition: PACU
--- NOTE | 2025-06-29 11:57 | PM.PN ---
Progress Note: Subjective Subjective Interval history: Patient seen and examined at bedside. Labs reviewed including leukocytosis. No fever no chills.. And kidney function improved as well. Her was at bedside. Exam Narrative Exam Narrative: General: The patient appears well and in no apparent distress. Patient is resting comfortably Eye: Normal conjunctiva, no drainage, EOMI. PERRL Ears, Nose, Mouth, and Throat: oral mucosa is moist. Nares patent. Mouth without vesicles. Cardiovascular: Regular Rate and Rhythm, no murmur, gallop, rub Respiratory: Patient is in no distress, no accessory muscle use, lungs are clear to auscultation, no wheezing, rales or rhonchi Back: non-tender, no CVA tenderness bilaterally to percussion. No CT LS midline pain GI: Soft, no tenderness to palpation, no masses appreciated. No rebound, guarding, or rigidity noted. No distention Musculoskeletal: Left foot was just seen by podiatry and is wrapped on my exam. No crepitus on exam. Does have left foot swelling with erythema and tenderness to palpation. Intact. Pulses bilaterally. Neurological: A&O x4, normal speech Constitutional Vital Signs, click to edit/add: Last Vital Signs Temp 98 F 06/29/25 07:34 Pulse 76 06/29/25 10:00 Resp 20 06/29/25 07:34 BP 122/75 06/29/25 07:34 Pulse Ox 94 L 06/29/25 07:34 O2 Del Method Room Air 06/29/25 07:34 Progress Note: Objective Labs Labs: Short CBC 06/29/25 Range/Units 05:09 WBC 14.5 H (4.0-11.0) 10^3/uL Hgb 10.6 L (12.0-16.0) g/dL Hct 31.1 L (36.0-48.0) % Plt Count 178 (150-450) 10^3/uL BMP 06/29/25 05:09 Sodium 137 Potassium 5.1 Chloride 104 Carbon Dioxide 21.2 BUN 62.0 H Creatinine 1.68 H Glucose 201 H Calcium 8.9 Liver Function 06/29/25 Range/Units 05:09 Total Bilirubin 0.5 (0.2-1.0) mg/dL AST 14 L (15-37) U/L ALT 17 (14-59) U/L Alkaline Phosphatase 88 (46-116) U/L Albumin 2.1 L (3.4-5.0) g/dL Progress Note: A&P Assessment and Plan (1) LEWIS (acute kidney injury): (2) Infection of left foot: Plan Diabetic foot infection in the setting of diabetic neuropathy Ruling out osteomyelitis CKD no evidence of LEWIS Possible MRSA bacteremia (only 1 set of cultures possibly growing that) - Admit patient to medical floor telemetry - Start IV vancomycin and IV Zosyn to be dosed by pharmacy - Continue with IV NS 50 mL/h for total of 1 L - Podiatry consulted as they are aware of the patient and patient to be made n.p.o. after midnight as per podiatry recommendation for possible intervention - Obtain arterial Doppler to better delineate the patient vascular supply to the left foot to assess the chances for healing - PT/OT eval - Wound consulted wound care - Full code - DVT/GI prophylaxis addressed - Discussed the plan in detail with the patient and her . Answered all the questions. 06/29/2025 blood cultures reviewed there is 1 set that is growing MRSA, will continue and maintain IV vancomycin IV Zosyn for now. Patient scheduled for a podiatry procedure today. She is n.p.o. for that. Will continue with the same management. Kidney function post IV hydration. I may give another 500 mL for that sake. Arterial doppler of the lower extremities reviewed, showing mild distal peripheral arterial disease in the LLE. Ordered repeat blood cultures, no murmurs on exam, will order TTE for surveillance, discussed the findings and the plan with the pt and her . Answered all her questions.
--- NOTE | 2025-06-29 12:01 | CA_ITS ---
Patient Name: RITA COBB MR#: [id number] : 1960 Exam Date: 06/29/2025 Ordering Doctor: ISIAH FELIX ECHOCARDIOGRAM REPORT PROCEDURE: CA ECHO DOPPLER COMPLETE INDICATIONS: mrsa bacteremia COMPARISON: None. DESCRIPTION: COMPLETE ECHOCARDIOGRAM Real-time transthoracic echocardiography with 2D, M-mode, spectral and color flow Doppler performed. QUALITY: Technical quality was good. LEFT VENTRICLE: Normal chamber size. Borderline left ventricular hypertrophy. Normal systolic function. LV EF: Calculated left ventricular ejection fraction is hyperdynamic at 74%. DIASTOLIC: Normal diastolic function. ATRIAL SEPTUM: LEFT ATRIUM: Normal chamber size. RIGHT ATRIUM: Normal chamber size. RIGHT VENTRICLE: Normal chamber size. Normal right ventricular systolic function. TRICUSPID VALVE: Normal mobility and thickness. No vegetations are present. No stenosis with trivial regurgitation. No evidence of pulmonary hypertension. RVSP 27 mmHg MITRAL VALVE: Normal mobility and thickness. No vegetations are present. No evidence of mitral valve stenosis. There is no mitral annular calcification. Trivial mitral regurgitation. AORTIC VALVE: Normal trileaflet appearance. Thickened aortic valve. Normal leaflet mobility. No vegetations are present. No evidence of aortic valve stenosis. No aortic regurgitation. AORTIC ROOT: Normal diameter and appearance, measuring 3.0 cm. The ascending aorta is normal in size, measuring 3.1 cm. PULMONIC VALVE: Normal thickness and mobility. No stenosis. Trivial regurgitation. PERICARDIUM: No evidence of pericardial effusion. IVC: Collapses with inspiration. Normal size. PLEURA: CONCLUSION: 1. Hyperdynamic left ventricular systolic function. Estimated LVEF is 70-75%. 2. Normal right ventricular size and systolic function. 3. Normal diastolic function. 4. No significant valvular dysfunction. 5. Normal right-sided pressures. 6. No evidence of valvular vegetations seen on this transthoracic study. Adult Echocardiography Procedure Report Left Ventricle LVEDD (3.7 - 5.6 cm): 4.47 cm LVESD (2.2 - 4.0 cm): 3.10 cm LVIVS thickness (0.6 - 1.2 cm): 1.13 cm LVPW thickness (0.5 - 1.0 cm): 0.90 cm e': 0.09 m/s E - e': 11.35 LVOT Max Gradient: 3.21 mm[Hg] LVOT Area (cm2): 0.90 m/s Peak Velocity (LVOT): 0.90 m/s Mean Velocity (LVOT): 0.63 m/s LVOT Diameter 1.95 cm Left Ventricular Ejection Fraction: 74.05 % Left Atrium LA Volume Index (2D A2C): 27.62 ml/m2 Left Atrium Systolic Dimension: 4.05 cm Mitral Valve MV E to A Ratio: 1.07, 1.05 Mitral Valve A-Wave Peak Velocity: 0.99 m/s Mitral Valve E-Wave Peak Velocity: 1.05 m/s Right Ventricle RV Internal Diastolic Dimension: 3.18 cm Aorta AO Root Diam: 2.96 cm Ascending Ao Diam: 3.05 cm Aortic Valve AoV Area (Peak Jamey): 2.23 cm2, 2.23 cm2 AoV Area (VTI): 2.28 cm2, 2.28 cm2 Peak Velocity(Antegrade Flow): 1.20 m/s Peak Gradient(Antegrade Flow): 5.78 mm[Hg] Mean Velocity(Antegrade Flow): 0.85 m/s Mean Gradient(Antegrade Flow): 3.28 mm[Hg] Velocity Time Integral: 31.07 cm Tricuspid Valve Peak Velocity (Regurgitant Flow): 2.40 m/s, 2.20 m/s, 2.44 m/s Pulmonic Valve Mean Gradient: 1.78 mm[Hg] Mean Velocity: 0.64 m/s Peak Velocity: 0.89 m/s, 0.85 m/s Peak Gradient: 3.20 mm[Hg], 2.89 mm[Hg] Right Atrium Right Atrium Systolic Pressure: 36.77 ml, 36.77 ml Dictated by: Franky Chavez M.D. on 06/29/2025 at 20:42 Approved by: Franky Chavez M.D. on 06/29/2025 at 20:46
[2025-06-29] MEDS: BUPIVACAINE HCL 0.5% PF 50 MG/10 ML VIAL INJ (12:12)
[2025-06-29] MEDS: LIDOCAINE HCL 1% 100 MG/10 ML MDV INJ (12:12)
[2025-06-29] MEDS: VANCOMYCIN HCL 1,000 MG VIAL 1000 MG TOPICAL (12:39)
--- NOTE | 2025-06-29 12:46 | PC.NURSE ---
bovie pad and tourniquet applied but not used
[2025-06-29] MEDS: VANCOMYCIN HCL 1,250 MG in 0.9 % SODIUM CHLORIDE 250 ML 166.667 MG IV (13:50)
[2025-06-29] MEDS: 0.9 % SODIUM CHLORIDE 1,000 ML 50 ML IV (13:50)
[2025-06-29] MEDS: PREGABALIN 75 MG CAPSULE 150 MG PO (17:11)
[2025-06-29] MEDS: INSULIN ASPART 300 UNIT/3 ML PEN 20 UNIT SUBQ (17:17)
[2025-06-29] MEDS: METOPROLOL SUCCINATE 100 MG TAB.ER.24H 200 MG PO (21:56)
[2025-06-29] MEDS: HEPARIN SODIUM (PORCINE) 5,000 UNIT/ML VIAL 5000 UNIT SUBQ (21:56)
[2025-06-29] MEDS: INSULIN ASPART 300 UNIT/3 ML PEN SUBQ (23:13)
[2025-06-30] VITALS (7 sets, daily range): BP systolic 151–162; BP diastolic 70–77; PULSE 59–77; TEMP 36.8–36.9; O2SAT 94–95
[2025-06-30] MEDS: PIPERACILLIN SODIUM/TAZOBACTAM 3.375 GM in 0.9 % SODIUM CHLORIDE 50 ML IV (02:32)
[2025-06-30 05:34] LABS: Hematocrit 30.3 % (36.0-48.0); Hemoglobin 10.1 g/dL (12.0-16.0); Immature Granulocytes Abs Auto 0.09 10^3/uL (0.00-0.03); Immature Granulocytes Pct Auto 0.8 % (0.0-0.5); Lymphocytes Absolute Auto 0.8 10^3/uL (1.2-3.8); Mean Corpuscular HGB Conc 33.3 g/dL (29.9-35.2); Mean Corpuscular Hemoglobin 29.3 pg (26.7-34.0); Mean Corpuscular Volume 87.8 fL (81.0-99.0); Platelet Count 184 10^3/uL (150-450); Red Blood Count 3.45 10^6/uL (4.20-5.40); White Blood Count 11.8 10^3/uL (4.0-11.0)
[2025-06-30 06:03] LABS: Alanine Aminotransferase 23 U/L (14-59); Albumin Globulin Ratio 0.5; Albumin Level 1.9 g/dL (3.4-5.0); Alkaline Phosphatase 99 U/L (46-116); Anion Gap 14.0; Aspartate Amino Transferase 14 U/L (15-37); Blood Urea Nitrogen 56.0 mg/dL (7.0-18.0); Calcium 8.6 mg/dL (8.5-10.1); Carbon Dioxide 23.0 mmol/L (21.0-32.0); Chloride 106 mmol/L (98-107); Estimated GFR (African America 41 (>=60 mL/min/1.73m^2); Estimated GFR (Non-African Ame 34 (>=60 mL/min/1.73m^2); Globulin 4.1 g/dL; Glucose 253 mg/dL (74-106); Magnesium 1.7 mg/dL (1.8-2.4); Potassium 5.0 mmol/L (3.5-5.1); Sodium 138 mmol/L (136-145); Total Protein 6.0 g/dL (6.4-8.2)
[2025-06-30] MEDS: CHOLECALCIFEROL (VITAMIN D3) 25 MCG/1,000 UNITS TABLET 100 MCG PO (08:50)
[2025-06-30] MEDS: INSULIN ASPART 300 UNIT/3 ML PEN SUBQ (08:50)
[2025-06-30] MEDS: INSULIN ASPART 300 UNIT/3 ML PEN 10 UNIT SUBQ (08:50)
[2025-06-30] MEDS: ASPIRIN 81 MG TAB.CHEW PO (08:50)
[2025-06-30] MEDS: HEPARIN SODIUM (PORCINE) 5,000 UNIT/ML VIAL 5000 UNIT SUBQ (08:51)
[2025-06-30] MEDS: PREGABALIN 75 MG CAPSULE 150 MG PO (08:52)
--- NOTE | 2025-06-30 09:08 | SWNOTE1 ---
SW reviewed therapy notes and no further needs at this time.
--- NOTE | 2025-06-30 09:54 | PM.DS1 ---
DS: Providers Provider Date of admission: 06/28/25 13:13 Primary care physician: Charan Delgadillo DO Consults: 06/28/25 12:23 Consult to Podiatry Routine Consulting Provider: Torres Fernandez Reason for consultation: Left diabetic foot ulcer 06/28/25 12:33 Consult to Pharmacy Routine Consulting Provider: Reason for consultation: LEWIS with left foot infection (Vanc and Zosyn) 06/28/25 12:36 Consult to Wound Care Routine Consulting Provider: Nick Theodore Reason for consultation: left foot infection, procedure tomorrow Occupational Therapy Eval and Treat Routine Reason for consultation: after procedure tomorrow Physical Therapy Eval and Treat Routine Reason for consultation: after procedure tomorrow DS: Diagnosis Discharge Diagnosis (1) Infection of left foot: (2) LEWIS (acute kidney injury): (3) Diabetes mellitus: (4) CKD (chronic kidney disease): Plan Left foot: Acute diabetic foot infection, with draining abscess and ulceration down to including fat, fascia, and muscle. Treated surgically on 06/29/[address] Torres Fernandez. Diabetes mellitus type 2, with acute hyperglycemia, due to recent corticosteroids (interventional pain management injection about 2 weeks before this hospital stay) and due to the acute infection. On presentation to the emergency room 1 out of 2 blood cultures was positive for MRSA. This is felt to be a skin contaminant and not reflect bacteremia. Chronic kidney disease stage III. 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 She has diabetes mellitus type 2, chronic kidney disease, and diabetic polyneuropathy. Recently, on 06/24/2025 she had a slip and fall while at a family campsite and the following day she noticed swelling and bruising and then feeling ill and then noticed increased swelling and redness and a new blister on the plantar aspect of the medial portion of her left foot. The day after that she presented to the wound care center who got culture of the purulent drainage and sent her to the ER for workup. She was admitted in the hospital. Podiatry was consulted. MRI was obtained which suggested cellulitis but no definitive abscess and no definitive osseous change. Arterial duplex ultrasound reveals mild distal peripheral arterial disease of the left lower extremity. As part of her workup in emergency room she did get blood cultures. 1 out of 2 blood cultures was showing evidence of MRSA, but multiple other blood cultures were negative. During the surgery wound cultures were taken. An echocardiogram showed no evidence bacterial vegetation. While she was here her white blood count improved quickly from 17.3 down to 14.5 and then down to 11.8 on the last hospital day. She underwent the surgical procedure by Dr. Fernandez and tolerated it well. She is to be nonweightbearing on the left foot. She is to elevate the left foot above the level of the heart when resting, and to keep her splint clean and dry and intact and reinforce it as necessary. She will follow-up in the podiatry office in 3 days to have the wound dressing changed. At the time of discharge I am discharging her on 10 days of doxycycline 100 mg twice daily and Augmentin 500 mg twice daily. These antibiotics can be adjusted once final cultures come back, especially from the intraoperative cultures taken by the therapeutic activities services worker. Status at Discharge Functional status at discharge: uses cane/walker Overall status at discharge: patient is progressing back to baseline Time Spent with Patient Time attestation: Total time spent providing and/or coordinating discharge services: 39 minutes. Time spent: greater than 30 minutes Exam Narrative Exam Narrative: General: Sitting upright in chair. Discussing with physical therapist nonweightbearing instructions at the bedside. Pulmonary: Clear to auscultation. No wheezing. No crackles. Cardiac: Regular rate and rhythm to auscultation. No murmurs auscultation. Left lower extremity: Nice Michael wrap from her toes up to the knee. No edema above the knee. GI: Normal bowel sounds to auscultation. Constitutional Vital Signs, click to edit/add: Last Vital Signs Temp 98.2 F 06/30/25 08:57 Pulse 63 06/30/25 08:57 Resp 16 06/30/25 08:57 BP 151/77 H 06/30/25 08:57 Pulse Ox 95 06/30/25 08:57 O2 Del Method Room Air 06/30/25 08:57 DS: Data Data Completed and Pending Labs on day of discharge: Labs from last 24 hours 06/30/25 06/30/25 06/29/25 08:43 04:44 21:55 WBC 11.8 H RBC 3.45 L Hgb 10.1 L Hct 30.3 L MCV 87.8 MCH 29.3 MCHC 33.3 RDW 12.2 Plt Count 184 MPV 11.5 Neut % (Auto) 88.2 H Lymph % (Auto) 7.0 L Coke % (Auto) 3.9 Eos % (Auto) 0.0 L Baso % (Auto) 0.1 L Neut # (Auto) 10.4 H Lymph # (Auto) 0.8 L Coke # (Auto) 0.5 Eos # (Auto) 0.0 Baso # (Auto) 0.0 Abs Immat Gran (auto) 0.09 H Imm/Tot Granulo (auto) 0.8 H ESR 106 H Sodium 138 Potassium 5.0 Chloride 106 Carbon Dioxide 23.0 Anion Gap 14.0 BUN 56.0 H Creatinine 1.54 H Est GFR ( Amer) 41 L Est GFR (Non-Af Amer) 34 L BUN/Creatinine Ratio 36.4 Glucose 253 H Calcium 8.6 Magnesium 1.7 L Total Bilirubin 0.3 AST 14 L ALT 23 Alkaline Phosphatase 99 C-Reactive Protein 17.95 H Total Protein 6.0 L Albumin 1.9 L Globulin 4.1 Albumin/Globulin Ratio 0.5 POC Glucose 237 H 328 H 06/29/25 17:16 WBC RBC Hgb Hct MCV MCH MCHC RDW Plt Count MPV Neut % (Auto) Lymph % (Auto) Coke % (Auto) Eos % (Auto) Baso % (Auto) Neut # (Auto) Lymph # (Auto) Coke # (Auto) Eos # (Auto) Baso # (Auto) Abs Immat Gran (auto) Imm/Tot Granulo (auto) ESR Sodium Potassium Chloride Carbon Dioxide Anion Gap BUN Creatinine Est GFR ( Amer) Est GFR (Non-Af Amer) BUN/Creatinine Ratio Glucose Calcium Magnesium Total Bilirubin AST ALT Alkaline Phosphatase C-Reactive Protein Total Protein Albumin Globulin Albumin/Globulin Ratio POC Glucose 261 H Preliminary micro results at discharge 06/29/25 12:50 Acid Fast Bacilli Culture - Preliminary Abscess - Left Foot 06/28/25 11:00 Blood Culture Result 1 - Preliminary Blood 06/28/25 11:27 Blood Culture Result 2 - Preliminary Blood Discharge Plan Discharge Disposition: Home, Self-Care Condition: Fair Discharge Medications: New doxycycline monohydrate 100 mg capsule 100 mg PO BID 10 Days Qty: 20 0RF amoxicillin-pot clavulanate [Augmentin] 500-125 mg tablet 1 tab PO BID 10 Days Qty: 20 0RF Continued metoprolol succinate 200 mg tablet extended release 24 hr 200 mg PO .QHS tramadol 50 mg tablet 50 mg PO BID PRN (Reason: pain) insulin lispro [Humalog KwikPen Insulin] 100 unit/mL insulin pen 10 unit SUBCUT QAM (DME) pen needle, diabetic [Unifine Pentips] 31 gauge x 5/16 needle MISCELLANEOUS pregabalin 150 mg capsule 150 mg PO BID cholecalciferol (vitamin D3) 50 mcg (2,000 unit) capsule 50 mcg PO DAILY insulin degludec 200 unit/mL (3 mL) insulin pen 60 unit SUBCUT DAILY allopurinol 100 mg tablet 100 mg PO DAILY olmesartan 40 mg tablet 40 mg PO DAILY omega-3 acid ethyl esters 1 gram capsule 2 cap PO BID rosuvastatin 10 mg tablet 10 mg PO .3 times a week Patient Comments: thu tizanidine 4 mg tablet 4 mg PO .qhs PRN (Reason: muscle spasticity) aspirin 81 mg tablet 81 mg PO DAILY CitraTabs 7.5 mEq tablet extended release PO insulin lispro [Humalog KwikPen Insulin] 100 unit/mL insulin pen 20 unit subcut QPM Print Language: Swedish Forms: Portal Instructions Follow Up Appointments: 07/03 @ 10am with the [facility] [address] [place] [address] Selene Cuello, [address], [place] [phone]
[2025-06-30] MEDS: MULTIVITAMIN TABLET 1 TAB PO (10:04)
[2025-06-30] MEDS: ALLOPURINOL 100 MG TABLET PO (10:04)
--- NOTE | 2025-06-30 11:23 | SWNOTE1 ---
SW spoke to Dr. Reilly and pt is ready for discharge today. JEOVANY let corporation secretary know to set up follow up with Rebecca.
--- NOTE | 2025-06-30 11:24 | SWNOTE1 ---
Pt is set up for follow up with wound center.
--- NOTE | 2025-07-03 12:16 | CM.DCFOLLOWU ---
1st attempt 07/03/25, no answer
--- NOTE | 2025-07-04 09:09 | CM.DCFOLLOWU ---
2nd attempt 07/04/25, no answer
--- NOTE | 2025-07-04 14:00 | CM.NOTE ---
Cultures given to Dr. Reilly, he is reaching out to Infectious disease regarding antibiotic and possible PICC line placement.
--- NOTE | 2025-07-04 14:20 | CM.NOTE ---
Spoke with Dr. Reilly and he will call in oral antibiotic according to Infectious Disease recommendations and pt will need repeat Blood cultures in 16days. Update provided to patient.
--- NOTE | 2025-07-04 14:40 | CM.NOTE ---
Pt updated regarding oral antibiotic and has been called to pharmacy. Pt then will need BC x2 on 07/24. Lab requisition taken to lab. Pt verbalizes understanding.
--- NOTE | 2025-07-05 10:02 | CM.DCFOLLOWU ---
3rd attempt 07/05/25, no answer
--- NOTE | 2025-07-13 14:39 | CM.NOTE ---
Pt had called and left message for CM, she was unsure when she was scheduled for repeat BC. Pt to have repeat BC on 07/24. Pt verbalizes understanding and will come to lab for repeat Blood cultures on 07/24.
== END 2025-06-30 12:03 | disposition home or self-care (01) | DRG 623 ==
LOC: ER 12:27 → MS 14:12
PROVIDERS: Podiatrist Foot & Ankle Surgery; Admitting Provider Student in an Organized Health Care Education/Training Program; Emergency Provider Emergency Medicine; PCP Family Medicine; Visit Provider Student in an Organized Health Care Education/Training Program
PROC: 0JBR0ZZ Excision of Left Foot Subcutaneous Tissue and Fascia, Open Approach (ICD-10-PCS; principal; 2025-06-29 11:30)
DX: E11.628 Type 2 diabetes mellitus with other skin complications (principal); L02.612 Cutaneous abscess of left foot; L97.429 Non-pressure chronic ulcer of left heel and midfoot with unspecified severity; L97.421 Non-pressure chronic ulcer of left heel and midfoot limited to breakdown of skin; L97.422 Non-pressure chronic ulcer of left heel and midfoot with fat layer exposed; E11.22 Type 2 diabetes mellitus with diabetic chronic kidney disease; E11.621 Type 2 diabetes mellitus with foot ulcer; I25.10 Atherosclerotic heart disease of native coronary artery without angina pectoris; E11.42 Type 2 diabetes mellitus with diabetic polyneuropathy; E11.65 Type 2 diabetes mellitus with hyperglycemia; N18.30 Chronic kidney disease, stage 3 unspecified; T38.0X5A Adverse effect of glucocorticoids and synthetic analogues, initial encounter; N17.9 Acute kidney failure, unspecified; Z95.5 Presence of coronary angioplasty implant and graft; Z82.3 Family history of stroke; Z82.49 Family history of ischemic heart disease and other diseases of the circulatory system; Z88.1 Allergy status to other antibiotic agents; Z79.82 Long term (current) use of aspirin
CPT/HCPCS: 36415; 73610; 73630; 73718; 80053; 81001; 82800; 82948; 83605; 83735; 85025; 85610; 85652; 86140; 87040; 87070; 87075; 87076; 87077; 87102; 87116; 87150; 87176; 87186; 87205; 87206; 93005; 93306; 93925; 96365; 97161; 97166; 97530; 99285; 99999; G0463; J0131; J0665; J1100; J1644; J2250; J2405; J2543; J2704; J3010; J3373

== ENCOUNTER 2025-07-03 09:40 | Outpatient (OUT) | payer MEDICARE, SELFPAY ==
--- OUTSIDE RECORDS SUMMARY | 2025-07-03 13:43 | XMS_ITS | Encounter Summary ---
Author Organization [facility] Address [address] [place] [id number] Phone Care Team Providers Care Electronic Gaming Device Supervisor Name Role Phone Charan Delgadillo DO Primary Care Provider [phone] Charan Delgadillo DO Primary Care Provider [phone] Rosalinda Cordova MD Unavailable [phone] Encounter Details Date Type Department Care Team (Late st Contact Info) Description 08/13/2022 Orders Only [facility] [address] [place] [address] Conversion, Onbase Social History Tobacco Use Types [...] 2:30 PM EST Office Visit [facility] [address] [facility] [address] [place] [address] Rosalinda Cordova MD [address] [facility] [address] [place] [address] Scheduled Orders Name Type Priority Associated Diagnoses Orde r Schedule OUTSIDE LAB SCAN Lab Ordered: 08/13/2022 documented as of this encounter Visit Diagnoses Not on filedocumented in this encounter Care Teams Electronic Gaming Device Supervisor Relationship Specialty Start Date End Date Charan Delgadillo DO PCP - General 07/09/20 02/21/24 Charan Delgadillo DO PCP - General Family Medicine 02/22/24 Rosalinda Cordova MD [address] [facility] [address], [place] [address] Consulting Physician Cardiology 02/22/24 documented as of this encounter
--- OUTSIDE RECORDS SUMMARY | 2025-07-03 13:43 | XMS_ITS | Encounter Summary ---
Author Organization [facility] Address [address] [place] [id number] Phone Care Team Providers Care Scroll Machine Operator Name Role Phone Charan Delgadillo DO Primary Care Provider [phone] Charan Delgadillo DO Primary Care Provider [phone] Rosalinda Cordova MD Unavailable [phone] Encounter Details Date Type Department Care Team (Late st Contact Info) Description 06/19/2020 Orders Only [facility] [address] [place] [address] Conversion, Onbase Social History Tobacco Use Types [...] Description 11/03/2025 2:30 PM EST Office Visit [facility] [address] [address] Rosalinda Cordova MD [address] [facility] [address] [place] [address] Scheduled Orders Name Type Priority Associated Diagnoses Orde r Schedule OUTSIDE LAB SCAN Lab Ordered: 06/19/2020 documented as of this encounter Visit Diagnoses Not on filedocumented in this encounter Care Teams Scroll Machine Operator Relationship Specialty Start Date End Date Charan Delgadillo DO PCP - General 07/09/20 02/21/24 Charan Delgadillo DO PCP - General Family Medicine 02/22/24 Rosalinda Cordova MD [address] [facility] [address], [place] [address] Consulting Physician Cardiology 02/22/24 documented as of this encounter
--- OUTSIDE RECORDS SUMMARY | 2025-07-03 13:43 | XMS_ITS | Clinical Summary ---
Author Organization [facility] Address [address] [place] [address] Phone Care Team Providers Care Direct Marketing Representative Name Role Phone Charan Delgadillo DO Primary Care Provider [phone] Rosalinda Cordova MD Unavailable [phone] Allergies Active Allergy Reactions Criticality Noted Date [...] daily. Active ergocalciferol (Vitamin D-2) 1.25 MG (51962 UT) capsule Take 1 capsule (50,000 Units) [...] 10 mg tabletIndications :Atherosclerotic heart disease of [place] coronary artery without angina pectoris Take 1 [...] Description 11/03/2025 2:30 PM EST Office Visit [facility] [address] [phone] Rosalinda Cordova MD 703 [facility] 2, [address] [place] [address] Health Maintenance Due Date Last Done Comments [...] patient's age to complete this topic Insurance [facility] [employer] MEDICARE [employer] [place] MEDICARE [facility] [employer] MEDICARE [employer] [place] MEDICARE Care Teams Direct Marketing Representative Relationship Specialty Start Date End Date Charan Delgadillo DO PCP - General Family Medicine 02/22/24 Rosalinda Cordova MD 703 [facility] 2, [place] [id number] Consulting Physician Cardiology 02/22/24
--- OUTSIDE RECORDS SUMMARY | 2025-07-03 13:43 | XMS_ITS | Encounter Summary ---
Author Organization [facility] Address [address] [place] [address] Phone Care Team Providers Care Cabin Cleaner Name Role Phone Charan Delgadillo DO Primary Care Provider [phone] Charan Delgadillo DO Primary Care Provider [phone] Rosalinda Cordova MD Unavailable [phone] Encounter Details Date Type Department Care Team (Late st Contact Info) Description 11/26/[address] [facility] [address] [place] [id number] Scanning, Generic Provider Social History Tobacco Use [...] PM EST Office Visit [facility] 703 [facility] [address] [place] [address] Rosalinda Cordova MD 703 [facility] 2, [address] [place] [address] documented as of this encounter Visit Diagnoses Not on filedocumented in this encounter Care Teams Cabin Cleaner Relationship Specialty Start Date End Date Charan Delgadillo DO PCP - General 07/09/20 02/21/24 Charan Delgadillo DO PCP - General Family Medicine 02/22/24 Rosalinda Cordova MD 703 [facility] 2, [place] [address] Consulting Physician Cardiology 02/22/24 documented as of this encounter
--- OUTSIDE RECORDS SUMMARY | 2025-07-03 13:43 | XMS_ITS | Clinical Summary ---
Author Organization [facility] Address [address] [place], [place] [id number] Care Team Providers Care Driller Multiple Spindle Name Role Phone Charan Delgadillo DO Primary Care Provider [phone] Allergies Active Allergy Reactions Criticality Noted Date [...] EST) Glucose 316(H) 65 - 100 mg/dL [facility] BUN 15 8 - 25 mg/dL [facility] Creatinine 0.78 0.70 - 1.40 mg/dL [facility] Sodium 135 132 - 148 mmol/L [facility] Potassium 4.4 3.5 - 5.0 mmol/L [facility] Chloride 96(L) 98 - 110 mmol/L [facility] CO2 23 23 - 32 mmol/L [facility] Anion Gap 16(H) 0 - 15 mmol/L [facility] Calcium 11.4(H) 8.5 - 10.5 mg/dL [facility] eGFR- >60 [facility] eGFR-All Other Races >60 . [facility] Comment: eGFR (Estimated GFR) Units [...] EST Dorothy Renteria MD LABORATORY Final Result [facility] [address] [place] [address] from Last 3 Months or Most Recently Relevant to Health Maintenance Insurance [employer] Care Teams Driller Multiple Spindle Relationship Specialty Start Date End Date Charan Delgadillo DO [address] [place] [address] PCP - General Family Medicine 11/08/12
--- OUTSIDE RECORDS SUMMARY | 2025-07-03 13:43 | XMS_ITS | Encounter Summary ---
Author Organization [facility] Address [address] [place] [id number] Phone Care Team Providers Care Civil Engineering Project Manager Name Role Phone Charan Delgadillo DO Primary Care Provider [phone] Charan Delgadillo DO Primary Care Provider [phone] Rosalinda Cordova MD Unavailable [phone] Encounter Details Date Type Department Care Team (Late st Contact Info) Description 04/30/2022 Orders Only [facility] [address] [place] [address] Conversion, Onbase Social History Tobacco Use Types [...] 2:30 PM EST Office Visit [facility] 703 [facility] 250 [place] [address] Rosalinda Cordova MD 703 [facility] 2, [address] [place] [address] Scheduled Orders Name Type Priority Associated Diagnoses Orde r Schedule SLEEP STUDY ORDER - ONBASE SCAN Sleep Center Ordered: 022 documented as of this encounter Visit Diagnoses Not on filedocumented in this encounter Care Teams Civil Engineering Project Manager Relationship Specialty Start Date End Date Charan Delgadillo DO PCP - General 07/09/20 02/21/24 Charan Delgadillo DO PCP - General Family Medicine 02/22/24 Rosalinda Cordova MD 703 [facility] 2, [place] [address] Consulting Physician Cardiology 02/22/24 documented as of this encounter
--- OUTSIDE RECORDS SUMMARY | 2025-07-03 13:43 | XMS_ITS | Encounter Summary ---
Author Organization [facility] Address [address] [place] [phone] Phone Care Team Providers Care Fibrous Plasterer Name Role Phone Charan Delgadillo DO Primary Care Provider [phone] Charan Delgadillo DO Primary Care Provider [phone] Rosalinda Cordova MD Unavailable [phone] Encounter Details Date Type Department Care Team (Late st Contact Info) Description 11/19/2021 Orders Only [facility] [address] [place] [address] Conversion, Onbase Social History Tobacco Use Types [...] Office Visit [facility] 703 [facility] 250 [place] [address] Rosalinda Cordova MD 703 [facility] 2, [address] [place] [address] Scheduled Orders Name Type Priority Associated Diagnoses Orde r Schedule OUTSIDE LAB SCAN Lab Ordered: 11/19/2021 documented as of this encounter Visit Diagnoses Not on filedocumented in this encounter Care Teams Fibrous Plasterer Relationship Specialty Start Date End Date Charan Delgadillo DO PCP - General 07/09/20 02/21/24 Charan Delgadillo DO PCP - General Family Medicine 02/22/24 Rosalinda Cordova MD 703 [facility] 2, [place] [address] Consulting Physician Cardiology 02/22/24 documented as of this encounter
--- OUTSIDE RECORDS SUMMARY | 2025-07-03 13:43 | XMS_ITS | Encounter Summary ---
Author Organization [facility] Address [address] [place] [phone] Phone Care Team Providers Care Home Energy Rater Name Role Phone Charan Delgadillo DO Primary Care Provider [phone] Charan Delgadillo DO Primary Care Provider [phone] Rosalinda Cordova MD Unavailable Encounter Details Date Type Department Care Team (Late st Contact Info) Description 03/06/2023 Orders Only [facility] [address] [place] [address] Conversion, Onbase Social History Tobacco Use Types [...] Description 11/03/2025 2:30 PM EST Office Visit [facility] 703 [facility] 250 [place] [address] Rosalinda Cordova MD 703 [facility] 2, [address] [place] [address] Scheduled Orders Name Type Priority Associated Diagnoses Orde r Schedule OUTSIDE LAB SCAN Lab Ordered: 03/06/2023 documented as of this encounter Visit Diagnoses Not on filedocumented in this encounter Care Teams Home Energy Rater Relationship Specialty Start Date End Date Charan Delgadillo DO PCP - General 07/09/20 02/21/24 Charan Delgadillo DO PCP - General Family Medicine 02/22/24 Rosalinda Cordova MD 703 [facility] 2, [place] [address] Consulting Physician Cardiology 02/22/24 documented as of this encounter
--- OUTSIDE RECORDS SUMMARY | 2025-07-03 13:43 | XMS_ITS | Encounter Summary ---
Author Organization [facility] Address [address] [place] [address] Phone Care Team Providers Care Photography And Prints Curator Name Role Phone Yeison Delgadilloan Dani BASSETT Primary Care Provider [phone] Rosalinda Cordova MD Unavailable [phone] Encounter Details Date Type Department Care Team (Late st Contact Info) Description 12/08/2024 Scanned Document [facility] [address] [place] [address] Scanning, Generic Provider Social History [...] EST Office Visit [facility] [address] [address] Rosalinda Cordova MD 703 [facility] 2, [address] [place] [address] documented as of this encounter [...] documented as of this encounter Care Teams Photography And Prints Curator Relationship Specialty Start Date End Date Charan Delgadillo DO PCP - General Family Medicine 02/22/24 Rosalinda Cordova MD 703 [facility] 2, [place] [phone] Consulting Physician Cardiology 02/22/24 documented as of this encounter
--- OUTSIDE RECORDS SUMMARY | 2025-07-03 13:43 | XMS_ITS | Encounter Summary ---
Author Organization [facility] Address [address] [place] [phone] Phone Care Team Providers Care Mathematical Scientist Name Role Phone Charan Delgadillo DO Primary Care Provider [phone] Charan Delgadillo DO Primary Care Provider [phone] Rosalinda Cordova MD Unavailable [phone] Encounter Details Date Type Department Care Team (Late st Contact Info) Description 03/25/2022 Orders Only [facility] [address] [place] [address] Conversion, Onbase Social History Tobacco Use Types [...] PM EST Office Visit [facility] [address] [address] Rosalinda Cordova MD 703 [facility] 2, [address] [place] [address] Scheduled Orders Name Type Priority Associated Diagnoses Orde r Schedule OUTSIDE LAB SCAN Lab Ordered: 03/25/2022 OUTSIDE LAB SCAN Lab Ordered: 03/25/2022 OUTSIDE LAB SCAN Lab Ordered: 03/25/2022 documented as of this encounter Visit Diagnoses Not on filedocumented in this encounter Care Teams Mathematical Scientist Relationship Specialty Start Date End Date Charan Delgadillo DO PCP - General 07/09/20 02/21/24 Charan Delgadillo DO PCP - General Family Medicine 02/22/24 Rosalinda Cordova MD 3 [facility] 2, [address] [address] Consulting Physician Cardiology 02/22/24 documented as of this encounter
--- OUTSIDE RECORDS SUMMARY | 2025-07-03 13:43 | XMS_ITS | Encounter Summary ---
Author Organization [facility] Address [address] [place] [address] Phone Care Team Providers Care International Coordinator Name Role Phone Charan Delgadillo DO Primary Care Provider [phone] Charan Delgadillo DO Primary Care Provider [phone] Rosalinda Cordova MD Unavailable [phone] Encounter Details Date Type Department Care Team (Late Contact Info) Description 02/19/2022 Orders Only [facility] [address] [place] [address] Conversion, Onbase Social History Tobacco Use Types [...] Office Visit [facility] 703 [facility] [address] [place] [address] Rosalinda Cordova MD 703 [facility] 2, [address] [place] [address] Scheduled Orders Name Type Priority Associated Diagnoses Orde r Schedule OUTSIDE LAB SCAN Lab Ordered: 02/19/2022 documented as of this encounter Visit Diagnoses Not on filedocumented in this encounter Care Teams International Coordinator Relationship Specialty Start Date End Date Charan Delgadillo DO PCP - General 07/09/20 02/21/24 Charan Delgadillo DO PCP - General Family Medicine 02/22/24 Rosalinda Cordova MD 703 [facility] 2, [place] [phone] Consulting Physician Cardiology 02/22/24 documented as of this encounter
--- OUTSIDE RECORDS SUMMARY | 2025-07-03 13:43 | XMS_ITS | Encounter Summary ---
Author Organization [facility] Address [address] [place] [address] Phone Care Team Providers Care Cashier Ticket Selling Name Role Phone Yeison Delgadilloan Dani BASSETT Primary Care Provider [phone] Rosalinda Cordova MD Unavailable Encounter Details Date Type Department Care Team (Late st Contact Info) Description 02/29/2024 Scanned Document [facility] [address] [place] [address] Scanning, Generic Provider Social History [...] PM EST Office Visit [facility] 703 [facility] 250 [place] [address] Rosalinda Cordova MD [address] [facility] [address], [address] [place] [address] documented as of this encounter Visit Diagnoses Not on filedocumented in this encounter Additional Health Concerns Assessment Noted Time A fall risk assessment has been complete d for the patient 02/22/2024 2:26 PM EDT documented as of this encounter Care Teams Cashier Ticket Selling Relationship Specialty Start Date End Date Charan Delgadillo DO PCP - General Family Medicine 02/22/24 Rosalinda Cordova MD 703 [facility] 2, [place] [address] Consulting Physician Cardiology 02/22/24 documented as of this encounter
--- OUTSIDE RECORDS SUMMARY | 2025-07-03 13:43 | XMS_ITS | Encounter Summary ---
Author Organization [facility] Address [address] [place] [phone] Phone Care Team Providers Care Golf Club Assembler Name Role Phone Charan Delgadillo DO Primary Care Provider [phone] Charan Delgadillo DO Primary Care Provider [phone] Rosalinda Cordova MD Unavailable [phone] Encounter Details Date Type Department Care Team (Late st Contact Info) Description 10/22/2021 Orders Only [facility] [address] [place] [address] Conversion, Onbase Social History Tobacco Use Types [...] Description 11/03/2025 2:30 PM EST Office Visit [facility] 703 [facility] 250 [place] [address] Rosalinda Cordova MD 703 [facility] 2, [address] [place] [address] Scheduled Orders Name Type Priority Associated Diagnoses Orde r Schedule SLEEP STUDY ORDER - ONBASE SCAN Sleep Center Ordered: 021 documented as of this encounter Visit Diagnoses Not on filedocumented in this encounter Care Teams Golf Club Assembler Relationship Specialty Start Date End Date Charan Delgadillo DO PCP - General 07/09/20 02/21/24 Charan Delgadlilo DO PCP - General Family Medicine 02/22/24 Rosalinda Cordova MD 703 [facility] 2, [place] [address] Consulting Physician Cardiology 02/22/24 documented as of this encounter
--- OUTSIDE RECORDS SUMMARY | 2025-07-03 13:43 | XMS_ITS | Encounter Summary ---
Author Organization [facility] Address [address] [place] [address] Phone Care Team Providers Care Commercial Roofer Name Role Phone Charan Delgadillo DO Primary Care Provider [phone] Charan Delgadillo DO Primary Care Provider [phone] Rosalinda Cordova MD Unavailable [phone] Encounter Details Date Type Department Care Team (Late st Contact Info) Description 12/30/2023 Scanned Document [facility] [address] [place] [address] Scanning, Generic Provider Social History Tobacco Use [...] PM EST Office Visit [facility] 703 [facility] 250 [place] [address] Rosalinda Cordova MD 703 [facility] 2, [address] [place] [address] documented as of this encounter [...] filedocumented in this encounter Care Teams Commercial Roofer Relationship Specialty Start Date End Date Charan Delgadillo DO PCP - General 07/09/20 02/21/24 Charan Delgadillo DO PCP - General Family Medicine 02/22/24 Rosalinda Cordova MD 703 [facility] 2, [address] [address] Consulting Physician Cardiology 02/22/24 documented as of this encounter
--- OUTSIDE RECORDS SUMMARY | 2025-07-03 13:43 | XMS_ITS | Encounter Summary ---
Author Organization [facility] Address [address] [place] [phone] Phone Care Team Providers Care Dredge Pump Operator Name Role Phone Charan Delgadillo DO Primary Care Provider [phone] Charan Delgadillo DO Primary Care Provider [phone] Rosalinda Cordova MD Unavailable [phone] Encounter Details Date Type Department Care Team (Late st Contact Info) Description 04/17/2020 Orders Only [facility] [address] [place] [address] Conversion, Onbase Social History Tobacco Use Types [...] Office Visit [facility] [address] [address] Rosalinda Cordova MD 703 [facility] [address], [address] [place] [address] Scheduled Orders Name Type Priority Associated Diagnoses Orde r Schedule OUTSIDE LAB SCAN Lab Ordered: 04/17/2020 documented as of this encounter Visit Diagnoses Not on filedocumented in this encounter Care Teams Dredge Pump Operator Relationship Specialty Start Date End Date Charan Delgadillo DO PCP - General 07/09/20 02/21/24 Charan Delgadillo DO PCP - General Family Medicine 02/22/24 Rosalinda Cordova MD 703 [facility] 2, [place] [address] Consulting Physician Cardiology 02/22/24 documented as of this encounter
== END 2025-07-03 09:41 | disposition home or self-care (01) ==
LOC: WC 13:40
PROVIDERS: PCP Family Medicine; Visit Provider Podiatrist Foot & Ankle Surgery
DX: E11.621 Type 2 diabetes mellitus with foot ulcer (principal); L97.422 Non-pressure chronic ulcer of left heel and midfoot with fat layer exposed; L97.421 Non-pressure chronic ulcer of left heel and midfoot limited to breakdown of skin
CPT/HCPCS: G0463

== ENCOUNTER 2025-07-12 13:46 | Outpatient (OUT) | payer MEDICARE, SELFPAY ==
--- OUTSIDE RECORDS SUMMARY | 2025-07-12 13:49 | XMS_ITS | Encounter Summary ---
Author Organization [facility] Address [address] [place] [phone] Phone Care Team Providers Care Biomedical Equipment Tech Name Role Phone Charan Delgadillo DO Primary Care Provider [phone] Charan Delgadillo DO Primary Care Provider [phone] Rosalinda Cordova MD Unavailable [phone] Encounter Details Date Type Department Care Team (Late st Contact Info) Description 11/19/2021 Orders Only [facility] [address] [place] [address] Conversion, Onbase Social History Tobacco Use Types [...] Description 11/03/2025 2:30 PM EST Office Visit [facility] 703 [facility] [address] [place] [address] Rosalinda Cordova MD 703 [facility] 2, [address] [place] [address] Scheduled Orders Name Type Priority Associated Diagnoses Orde r Schedule OUTSIDE LAB SCAN Lab Ordered: 11/19/2021 documented as of this encounter Visit Diagnoses Not on filedocumented in this encounter Care Teams Biomedical Equipment Tech Relationship Specialty Start Date End Date Charan Delgadillo DO PCP - General 07/09/20 02/21/24 Charan Delgadillo DO PCP - General Family Medicine 02/22/24 Rosalinda Cordova MD 703 [facility] 2, [place] [address] Consulting Physician Cardiology 02/22/24 documented as of this encounter
--- OUTSIDE RECORDS SUMMARY | 2025-07-12 13:49 | XMS_ITS | Encounter Summary ---
Author Organization [facility] Address [address] [place] [address] Phone Care Team Providers Care Tax Assistant Name Role Phone Charan Delgadillo DO Primary Care Provider [phone] Charan Delgadillo DO Primary Care Provider [phone] Rosalinda Cordova MD Unavailable [phone] Encounter Details Date Type Department Care Team (Late st Contact Info) Description 11/26/2023 Scanned Document [facility] [address] [place] [id number] Scanning, Generic Provider Social History Tobacco Use [...] Description 11/03/2025 2:30 PM EST Office Visit [facility] 703 [facility] [address] [place] [address] Rosalinda Cordova MD 703 [facility] 2, [address] [place] [address] documented as of this encounter Visit Diagnoses Not on filedocumented in this encounter Care Teams Tax Assistant Relationship Specialty Start Date End Date Charan Delgadillo DO PCP - General 07/09/20 02/21/24 Charan Delgadillo DO PCP - General Family Medicine 02/22/24 Rosalinda Cordova MD 703 [facility] 2, [place] [address] Consulting Physician Cardiology 02/22/24 documented as of this encounter
--- OUTSIDE RECORDS SUMMARY | 2025-07-12 13:49 | XMS_ITS | Clinical Summary ---
Author Organization [facility] Address [address] [place] [address] Phone Care Team Providers Care Public Information Director Name Role Phone Charan Delgadillo DO Primary Care Provider [phone] Rosalinda Cordova MD Unavailable [phone] Allergies Active Allergy Reactions Criticality Noted Date [...] daily. Active ergocalciferol (Vitamin D-2) 1.25 MG (73656 UT) capsule Take 1 capsule (50,000 Units) [...] 10 mg tabletIndications :Atherosclerotic heart disease of lummi coronary artery without angina pectoris Take 1 [...] EST Office Visit [facility] [address] [address] Rosalinda Cordova MD 703 [facility] 2, [address] [place] [address] Health Maintenance Due Date Last Done Comments [...] patient's age to complete this topic Insurance [facility] [employer] MEDICARE [employer] [place] MED[employer]ARE [facility] [employer] MEDICARE [employer] [place] MED[employer]ARE Care Teams Public Information Director Relationship Specialty Start Date End Date Charan Delgadillo DO PCP - General Family Medicine 02/22/24 Rosalinda Cordova MD 703 [facility] 2, [place] [phone] Consulting Physician Cardiology 02/22/24
--- OUTSIDE RECORDS SUMMARY | 2025-07-12 13:49 | XMS_ITS | Encounter Summary ---
Author Organization [facility] Address [address] [place] [phone] Phone Care Team Providers Care Financial Sales Assistant Name Role Phone Charan Delgadillo DO Primary Care Provider [phone] Charan Delgadillo DO Primary Care Provider [phone] Rosalinda Cordova MD Unavailable [phone] Encounter Details Date Type Department Care Team (Late st Contact Info) Description 04/17/2020 Orders Only [facility] [address] [place] [address] Conversion, Onbase Social History Tobacco Use Types [...] EST Office Visit [facility] [address] [address] Rosalinda Cordova MD [address] [facility] [address], [address] [place] [address] Scheduled Orders Name Type Priority Associated Diagnoses Orde r Schedule OUTSIDE LAB SCAN Lab Ordered: 04/17/2020 documented as of this encounter Visit Diagnoses Not on filedocumented in this encounter Care Teams Financial Sales Assistant Relationship Specialty Start Date End Date Charan Delgadillo DO PCP - General 07/09/20 02/21/24 Charan Delgadillo DO PCP - General Family Medicine 02/22/24 Rosalinda Cordova MD 703 [facility] 2, [place] [address] Consulting Physician Cardiology 02/22/24 documented as of this encounter
--- OUTSIDE RECORDS SUMMARY | 2025-07-12 13:49 | XMS_ITS | Encounter Summary ---
Author Organization [facility] Address [address] [place] [address] Phone Care Team Providers Care Tea Tree Farmer Name Role Phone Yeison Delgadilloan Dani BASSETT Primary Care Provider [phone] Rosalinda Cordova MD Unavailable [phone] Encounter Details Date Type Department Care Team (Late st Contact Info) Description 02/29/2024 Scanned Document [facility] [address] [place] [address] Scanning, Generic Provider Social History [...] 11/03/2025 2:30 PM EST Office Visit [facility] 703 [facility] 250 [place] [address] Rosalinda Cordova MD 703 [facility] [address] 2, [address] [place] [address] documented as of this encounter Visit Diagnoses Not on filedocumented in this encounter Additional Health Concerns Assessment Noted Time A fall risk assessment has been complete d for the patient 02/22/2024 2:26 PM EDT documented as of this encounter Care Teams Tea Tree Farmer Relationship Specialty Start Date End Date Charan Delgadillo DO PCP - General Family Medicine 02/22/24 Rosalinda Cordova MD 703 [facility] 2, [place] [address] Consulting Physician Cardiology 02/22/24 documented as of this encounter
--- OUTSIDE RECORDS SUMMARY | 2025-07-12 13:49 | XMS_ITS | Clinical Summary ---
Author Organization [facility] Address [address] [place], [place] [phone] Care Team Providers Care Media Marketing Manager Name Role Phone Charan Delgadillo DO Primary Care Provider [phone] Allergies Active Allergy Reactions Criticality Noted Date [...] EST) Glucose 316(H) 65 - 100 mg/dL [facility] BUN 15 8 - 25 mg/dL [facility] Creatinine 0.78 0.70 - 1.40 mg/dL [facility] Sodium 135 132 - 148 mmol/L [facility] Potassium 4.4 3.5 - 5.0 mmol/L [facility] Chloride 96(L) 98 - 110 mmol/L [facility] CO2 23 23 - 32 mmol/L [facility] Anion Gap 16(H) 0 - 15 mmol/L [facility] Calcium 11.4(H) 8.5 - 10.5 mg/dL [facility] eGFR- >60 [facility] eGFR-All Other Races >60 . [facility] Comment: eGFR (Estimated GFR) Units of [...] EST Dorothy Renteria MD LABORATORY Final Result [facility] [address] [place] [address] from Last 3 Months or Most Recently Relevant to Health Maintenance Insurance [employer] Care Teams Media Marketing Manager Relationship Specialty Start Date End Date Charan Delgadillo DO [address] [place] [address] PCP - General Family Medicine 11/08/12
--- OUTSIDE RECORDS SUMMARY | 2025-07-12 13:49 | XMS_ITS | Encounter Summary ---
Author Organization [facility] Address [address] [place] [address] Phone Care Team Providers Care Hydrological Technical Officer Name Role Phone Yeison Delgadilloan Dani BASSETT Primary Care Provider [phone] Rosalinda Cordova MD Unavailable [phone] Encounter Details Date Type Department Care Team (Late st Contact Info) Description 12/08/2024 Scanned Document [facility] [address] [place] [address] Scanning, Generic Provider Social History [...] Description 11/03/2025 2:30 PM EST Office Visit [facility] [address] [address] Rosalinda Cordova MD 703 [facility] 2, [address] [place] [address] documented as of this encounter [...] documented as of this encounter Care Teams Hydrological Technical Officer Relationship Specialty Start Date End Date Charan Delgadillo DO PCP - General Family Medicine 02/22/24 Rosalinda Cordova MD 703 [facility] 2, [place] [phone] Consulting Physician Cardiology 02/22/24 documented as of this encounter
--- OUTSIDE RECORDS SUMMARY | 2025-07-12 13:49 | XMS_ITS | Encounter Summary ---
Author Organization [facility] Address [address] [place] [phone] Phone Care Team Providers Care Mlt Name Role Phone Charan Delgadillo DO Primary Care Provider [phone] Charan Delgadillo DO Primary Care Provider [phone] Rosalinda Cordova MD Unavailable [phone] Encounter Details Date Type Department Care Team (Late st Contact Info) Description 04/30/2022 Orders Only [facility] [address] [place] [address] Conversion, Onbase Social History Tobacco Use Types [...] PM EST Office Visit [facility] 703 [facility] 250 [place] [address] Rosalinda Cordova MD 703 [facility] 2, [address] [place] [address] Scheduled Orders Name Type Priority Associated Diagnoses Orde r Schedule SLEEP STUDY ORDER - ONBASE SCAN Sleep Center Ordered: 022 documented as of this encounter Visit Diagnoses Not on filedocumented in this encounter Care Teams Mlt Relationship Specialty Start Date End Date Charan Delgadillo DO PCP - General 07/09/20 02/21/24 Charan Delgadillo DO PCP - General Family Medicine 02/22/24 Rosalinda Cordova MD 703 [facility] 2, [place] [address] Consulting Physician Cardiology 02/22/24 documented as of this encounter
--- OUTSIDE RECORDS SUMMARY | 2025-07-12 13:49 | XMS_ITS | Encounter Summary ---
Author Organization [facility] Address [address] [place] [phone] Phone Care Team Providers Care Intake Clerk Name Role Phone Charan Delgadillo DO Primary Care Provider [phone] Charan Delgadillo DO Primary Care Provider [phone] Rosalinda Cordova MD Unavailable [phone] Encounter Details Date Type Department Care Team (Late st Contact Info) Description 06/19/2020 Orders Only [facility] [address] [place] [address] Conversion, Onbase Social History Tobacco Use Types [...] 2:30 PM EST Office Visit [facility] [address] [address] Rosalinda Cordova MD [address]03 [facility] [address], [address] [place] [address] Scheduled Orders Name Type Priority Associated Diagnoses Orde r Schedule OUTSIDE LAB SCAN Lab Ordered: 06/19/2020 documented as of this encounter Visit Diagnoses Not on filedocumented in this encounter Care Teams Intake Clerk Relationship Specialty Start Date End Date Charan Delgadillo DO PCP - General 07/09/20 02/21/24 Charan Delgadillo DO PCP - General Family Medicine 02/22/24 Rosalinda Cordova MD 703 [facility] 2, [place] [address] Consulting Physician Cardiology 02/22/24 documented as of this encounter
--- OUTSIDE RECORDS SUMMARY | 2025-07-12 13:49 | XMS_ITS | Encounter Summary ---
Author Organization [facility] Address [address] [place] [phone] Phone Care Team Providers Care Casing Builder Name Role Phone Charan Delgadillo DO Primary Care Provider [phone] Charan Delgadillo DO Primary Care Provider [phone] Rosalinda Cordoav MD Unavailable [phone] Encounter Details Date Type Department Care Team (Late st Contact Info) Description 03/25/2022 Orders Only [facility] [address] [place] [address] Conversion, Onbase Social History Tobacco Use Types [...] 2:30 PM EST Office Visit [facility] [address] [address] Rosalinda Cordova MD 703 [facility] 2, [address] [place] [address] Scheduled Orders Name Type Priority Associated Diagnoses Orde r Schedule OUTSIDE LAB SCAN Lab Ordered: 03/25/2022 OUTSIDE LAB SCAN Lab Ordered: 03/25/2022 OUTSIDE LAB SCAN Lab Ordered: 03/25/2022 documented as of this encounter Visit Diagnoses Not on filedocumented in this encounter Care Teams Casing Builder Relationship Specialty Start Date End Date Charan Delgadillo DO PCP - General 07/09/20 02/21/24 Charan Delgadillo DO PCP - General Family Medicine 02/22/24 Rosalinda Cordova MD 3 [facility] 2, [address] [address] Consulting Physician Cardiology 02/22/24 documented as of this encounter
--- OUTSIDE RECORDS SUMMARY | 2025-07-12 13:49 | XMS_ITS | Encounter Summary ---
Author Organization [facility] Address [address] [place] [phone] Phone Care Team Providers Care Expeller Worker Name Role Phone Charan Delgadillo DO Primary Care Provider [phone] Charan Delgadillo DO Primary Care Provider [phone] Rosalinda Cordova MD Unavailable [phone] Encounter Details Date Type Department Care Team (Late st Contact Info) Description 08/13/2022 Orders Only [facility] [address] [place] [address] [place] [address] Conversion, Onbase Social History Tobacco Use Types [...] 11/03/2025 2:30 PM EST Office Visit [facility] [address]03 [facility] 250 [place] [address] Rosalinda Cordova MD 703 [facility] 2, [address] [place] [address] Scheduled Orders Name Type Priority Associated Diagnoses Orde r Schedule OUTSIDE LAB SCAN Lab Ordered: 08/13/2022 documented as of this encounter Visit Diagnoses Not on filedocumented in this encounter Care Teams Expeller Worker Relationship Specialty Start Date End Date Charan Delgadillo DO PCP - General 07/09/20 02/21/24 Charan Delgadillo DO PCP - General Family Medicine 02/22/24 Rosalinda Cordova MD 703 [facility] 2, [place] [address] Consulting Physician Cardiology 02/22/24 documented as of this encounter
--- OUTSIDE RECORDS SUMMARY | 2025-07-12 13:49 | XMS_ITS | Encounter Summary ---
Author Organization [facility] Address [address] [place] [address] Phone Care Team Providers Care Quality Technician Name Role Phone Charan Delagdillo DO Primary Care Provider [phone] Charan Delgadillo DO Primary Care Provider [phone] Rosalinda Cordova MD Unavailable [phone] Encounter Details Date Type Department Care Team (Late st Contact Info) Description 12/30/[address] [facility] [address] [place] [address] Scanning, Generic Provider Social History Tobacco Use [...] EST Office Visit [facility] 703 [facility] 250 [place] [address] Rosalinda Cordova MD 703 [facility] 2, [address] [place] [address] documented as of this [...] on filedocumented in this encounter Care Teams Quality Technician Relationship Specialty Start Date End Date Charan Delgadillo DO PCP - General 07/09/20 02/21/24 Charan Delgadillo DO PCP - General Family Medicine 02/22/24 Rosalinda Cordova MD 703 [facility] 2, [address] [address] Consulting Physician Cardiology 02/22/24 documented as of this encounter
--- OUTSIDE RECORDS SUMMARY | 2025-07-12 13:49 | XMS_ITS | Encounter Summary ---
Author Organization [facility] Address [address] [place] [id number] Phone Care Team Providers Care Transition Social Worker Name Role Phone Charan Delgadillo DO Primary Care Provider [phone] Charan Delgadillo DO Primary Care Provider [phone] Rosalinda Cordova MD Unavailable [phone] Encounter Details Date Type Department Care Team (Late st Contact Info) Description 10/22/2021 Orders Only [facility] [address] [place] [address] Conversion, Onbase Social History Tobacco Use Types [...] PM EST Office Visit [facility] [address] [facility] [address] [place] [address] Rosalinda Cordova MD [address] [facility] [address] [place] [address] Scheduled Orders Name Type Priority Associated Diagnoses Orde r Schedule SLEEP STUDY ORDER - ONBASE SCAN Sleep Center Ordered: 021 documented as of this encounter Visit Diagnoses Not on filedocumented in this encounter Care Teams Transition Social Worker Relationship Specialty Start Date End Date Charan Delgadillo DO PCP - General 07/09/20 02/21/24 Charan Delgadillo DO PCP - General Family Medicine 02/22/24 Rosalinda Cordova MD [address] [facility] [address], [place] [address] Consulting Physician Cardiology 02/22/24 documented as of this encounter
--- OUTSIDE RECORDS SUMMARY | 2025-07-12 13:49 | XMS_ITS | Encounter Summary ---
Author Organization [facility] Address [address] [place] [id number] Phone Care Team Providers Care Link Trainer Operator Name Role Phone Charan Delgadillo DO Primary Care Provider [phone] Charan Delgadillo DO Primary Care Provider [phone] Rosalinda Cordova MD Unavailable [phone] Encounter Details Date Type Department Care Team (Late st Contact Info) Description 03/06/2023 Orders Only [facility] [address] [place] [address] Conversion, Onbase Social History Tobacco Use Types [...] Description 11/03/2025 2:30 PM EST Office Visit [facility] [address] [facility] [address] [place] [address] Rosalinda Cordova MD [address] [facility] [address] [place] [address] Scheduled Orders Name Type Priority Associated Diagnoses Orde r Schedule OUTSIDE LAB SCAN Lab Ordered: 03/06/2023 documented as of this encounter Visit Diagnoses Not on filedocumented in this encounter Care Teams Link Trainer Operator Relationship Specialty Start Date End Date Charan Delgadillo DO PCP - General 07/09/20 02/21/24 Charan Delgadillo DO PCP - General Family Medicine 02/22/24 Rosalinda Cordova MD [address] [facility] [address], [place] [address] Consulting Physician Cardiology 02/22/24 documented as of this encounter
--- OUTSIDE RECORDS SUMMARY | 2025-07-12 13:49 | XMS_ITS | Encounter Summary ---
Author Organization [facility] Address [address] [place] [address] Phone Care Team Providers Care Rn Obgyn Name Role Phone Charan Delgadillo DO Primary Care Provider [phone] Charan Delgadillo DO Primary Care Provider [phone] Rosalinda Cordova MD Unavailable [phone] Encounter Details Date Type Department Care Team (Late Contact Info) Description 02/19/2022 Orders Only [facility] [address] [place] [address] Conversion, Onbase Social History Tobacco Use Types [...] EST Office Visit [facility] [address] [facility] [address] [place] [address] Rosalinda Cordova MD [address] [facility] [address] [place] [address] Scheduled Orders Name Type Priority Associated Diagnoses Orde r Schedule OUTSIDE LAB SCAN Lab Ordered: 02/19/2022 documented as of this encounter Visit Diagnoses Not on filedocumented in this encounter Care Teams Rn Obgyn Relationship Specialty Start Date End Date Charan Delgadillo DO PCP - General 07/09/20 02/21/24 Charan Delgadillo DO PCP - General Family Medicine 02/22/24 Rosalinda Cordova MD [address] [facility] [address], [place] [id number] Consulting Physician Cardiology 02/22/24 documented as of this encounter
--- OUTSIDE RECORDS SUMMARY | 2025-07-12 14:03 | XMS_ITS | CCD ---
Author Organization [facility] Care Team Providers Care Senior Payroll Specialist Name Role Phone Charan Casey Unavailable Unavailable Unavailable Blas Ortiz Unavailable Charan Casey Unavailable Thierno Chatterjee Unavailable Renée Watts Unavailable Elpidio Whipple Unavailable Federico Sepulveda Unavailable [phone] DO Charan Casey Primary Care Provider DO Mathieu Paul Emergency Provider DO Charan Casey Other Provider MD Elpidio Whipple Attending Provider ROSS Ceja Attending Provider MD Dipak Amaro Attending Provider TIMOTEO Watts Attending Provider [phone] DO Charan Casey Primary Care Provider Eliud Rod Unavailable DO Charan Casey Primary Care Provider TIMOTEO Watts Attending Provider [phone] DO Charan Casey Primary Care Provider TIMOTEO Watts Attending Provider MD Federico Sepulveda Attending Provider MD Elpidio Whipple Attending Provider [phone] ACOSTA CASTRO Consulting Unavailable DR CHARAN CASEY Primary Care Unavailable MATTHEW, ACOSTA Scott Attending Unavailable HIGHLMISAEL, ACOSTA Scott Admitting Unavailable SAQIB DECKER Consulting Unavailable DIEGO Derek, MONICA MCMAHON Consulting Unavailable JEMIMA LABOY Consulting Unavailable QUIRINO GONSALVES Consulting Unavailable SHARIF, BLANKA El Consulting Unavailable JACINTO, DR MANCINI Primary Care Unavailable ZOE, REID Attending Unavailable ZOE, REID Admitting Unavailable ZOE, REID Consulting Unavailable SHARIF, BLANKA R Consulting Unavailable KUNBryn, DR MANCINI Primary Care Unavailable ZOE, REID Attending Unavailable ZOE, REID Admitting Unavailable ZOE, REID Consulting Unavailable SHAKIRAER, BLANKA R Consulting Unavailable JACINTO, DR MANCINI Primary Care Unavailable HIGHLANDER, ACOSTA Scott Attending Unavailable HIGHLMISAEL, ACOSTA Scott Admitting Unavailable HIGHLANDER, ACOSTA Scott Consulting Unavailable BLANKA OLGUIN Consulting Unavailable HIGHLMISAEL, ACOSTA Scott Attending Unavailable HIGHLMISAEL, ACOSTA Scott Admitting Unavailable HIGHLANDER, ACOSTA Scott Consulting Unavailable BRODERICK FLOR V Consulting Unavailable [facility] [place] Primary Care Unavailable HIGHLANDER, ACOSTA Scott Attending Unavailable HIGHLMISAEL, ACOSTA Scott Admitting Unavailable HIGHLANDER, ACOSTA Scott Consulting Unavailable BLANKA OLGUIN Consulting Unavailable JACINTO, DR MANCINI Primary Care Unavailable ZOE, REID Attending Unavailable ZOE, REID Admitting Unavailable ZOE, REID Consulting Unavailable WESTBRODERICK V Consulting Unavailable JACINTO, DR MANCINI Primary Care Unavailable ZOE, REID Attending Unavailable ZOE, REID Admitting Unavailable ZOE, REID Consulting Unavailable WESTBRODERICK V Consulting Unavailable JACINTO, DR MACNINI Primary Care Unavailable ZOE, REID Attending Unavailable ZOE, REID Admitting Unavailable ZOE, REID Consulting Unavailable HIGHLANDERACOSTA Consulting Unavailable KUNBryn, DR MANCINI Primary Care Unavailable HIGHLMISAEL, ACOSTA Scott Attending Unavailable HIGHLMISAEL, ACOSTA Scott Admitting Unavailable DAVID JEFFRIES Consulting Unavailable ACOSTA JOHNSON Unavailable HIGHLACOSTA DOUGLAS Consulting Unavailable JACINTO, DR MANCINI Primary Care Unavailable HIGHLMISAEL, ACOSTA Scott Attending Unavailable HIGHLMISAEL, ACOSTA Scott Admitting Unavailable BLANKA OLGUIN Consulting Unavailable SHAIKH Aliyah THOMPSON Attending Unavailable SHAIKH Aliyah THOMPSON Admitting Unavailable JACINTO, DR MANCINI Primary Care Unavailable HIGHLMISAEL, ACOSTA Scott Consulting Unavailable SHAIKH Aliyah THOMPSON Consulting Unavailable DIEGO ., MONICA LISANDRO Consulting Unavailable JEMIMA LABOY Consulting Unavailable TERRELL HARVEY Consulting Unavailable CLARITA BLACKWELL Consulting Unavailable Jacinto, Dr. Charan Oliva Primary Care Unavaila Rosalinda Chou Attending Unavailable Rosalinda Torres Referring Unavailable Dr. Charan Casey Primary Care Unavaila ble Tasha, Rosalinda Attending Unavailable Tasha, Rosalinda Referring Unavailable Kuns, DO Charan Primary Care Provider Kuns, DO Charan Attending Provider [phone] Kuns, DO Charan Primary Care Provider [phone] MD Blas Ortiz Attending Provider Kuns, DO Charan Primary Care Provider Brysons, DO Charan Attending Provider [phone] MD Thierno Chatterjee Attending Provider Yasmeen Treadwell Unavailable Kuns, DO Charan Primary Care Provider MD Blas Ortiz Attending Provider [phone] MD Elpidio Whipple Attending Provider Kuns, DO Charan Primary Care Provider MD Thierno Chatterjee Attending Provider MD Blas Ortiz Attending Provider MD Elpidio Whipple Attending Provider MD Yasmeen Treadwell Attending Provider Blas Bellamy Unavailable Kuns, DO Charan Primary Care Provider MD Blas Ortiz Attending Provider Kuns, DO Charan Attending Provider [phone] Kuns, DO Charan Primary Care Provider Kuns, DO Charan Primary Care Provider Kuns Charan BASSETT Primary Care Provider [phone] Rosalinda Torres MD Unavailable ROSALINDA TORRES Attending Unavailable CHARAN CASEY [place] Primary Care Unavailable Kuns, DO Charan Primary Care Provider Kuns, DO Charan Attending Provider MD Blas Ortiz Attending Provider Kuns, DO Charan Primary Care Provider Kuns, DO Charan Attending Provider Kuns, DO Charan Primary Care Provider Kuns, DO Charan Primary Care Provider MD Blas Ortiz Attending Provider Kuns, DO Charan Primary Care Provider ROSS Castro Attending Provider Self, Referral Attending Provider Unavailable MD Blas Ortiz Attending Provider Kuns DO, Charan Primary Care Provider Acosta Castro DPM Attending Provider Self, Referral Attending Provider Unavailable Blas Ortiz MD Attending Provider [phone] Charan Casey MD Primary Care Provider Moni Becker MD Unavailable Kunbryn BASSETT, Charan P Primary Care Provider Kuns DO, Charan Primary Care Provider [phone] Nader Curry DO Attending Provider KunCharan clemente DO Attending Provider Kuns DO, Charan Primary Care Provider [phone] Blas Ortiz MD Attending Provider KunCharan clemente DO Primary Care Provider [phone] Nader Curry DO Attending Provider [phone] Nader Curry DO Attending Provider [phone] Jacinto BASSETT, Charan Primary Care Provider [phone] Charan Casey DO Attending Provider Nader Curry DO Attending Provider [phone] Charan Casey DO Primary Care Provider Charan Casey DO P Primary Care Provider SHAINA MUNROE Attending Unavailable PETMEHULICK, SHAINA M Attending Unavailable PETALFREDO, SHAINA M Attending Unavailable PETALFREDO, SHAINA M Attending Unavailable CHARAN CASEY P Referring Unavailable Charan Casey DO Primary Care Provider Charan Casey DO Attending Provider Blas Ortiz MD Attending Provider [phone] Charan Casey DO Primary Care Provider Acosta Castro DPM Attending Provider [phone] Blas Ortiz Admitting Unavailable Blas Ortiz Attending Unavailable Kuns, Charan Primary Care Unavailable Kuns, Charan Primary Care Unavailable Acosta Castro Admitting Unavailable Acosta Castro Attending Unavailable Marques Curryin A Admitting Unavailable Nader Curry A Attending Unavailable Kuns, Charan Primary Care Unavailable Kuns, Charan Primary Care Unavailable Acosta Castro Admitting Unavailable Acosta Castro Attending Unavailable Kuns Charan Attending Unavailable Kuns, Charan Admitting Unavailable Kuns, Charan Primary Care Unavailable Antoinette, Nader A Admitting Unavailable Kuns, Charan Primary Care Unavailable Antoinette, Nader A Attending Unavailable Kuns, Charan Primary Care Unavailable Self, Referral Admitting Unavailable Self, Referral Attending Unavailable Antoinette, Nader A Admitting Unavailable Kuns, Charan Primary Care Unavailable Nader Curry A Attending Unavailable Blas Ortiz Admitting Unavailable Blas Ortiz Attending Unavailable Kuns, Charan Primary Care Unavailable Gustavo Cuevas DO Attending Provider Karla Lyons MD Attending Provider Charan Casey DO Attending Provider [phone] Allergies Allergy Classification Reported Allergen(s) Allergy Type Date of Onset Reaction(s) Facility Lincosamides (antibiotic) (1 source) Clindamycin Drug Allergy 05-23-20 oral [facility] Quinolones (antibiotic) (1 source) levoFLOXacin Drug Allergy 05-23-20 24 hypoglycemia [facility] (20 sources) Erythromycin; 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: [Erythromycin Base TABS] Drug Allergy 12-04-19 24 nausea, Nausea/vomiting , Unknown [facility] (20 sources) Clindamycin Drug Allergy 12-31-19 24 oral med - rash [facility] (20 sources) arzithomycin Propensity to adverse reactions 12-31-19 24 stomach upset [facility] (20 sources) erythromycin base; 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: [Erythromycin Base] Propensity to adverse reactions 03-25-20 22 Nausea Only [facility] (2 sources) levoFLOXacin Drug Allergy hypoglycemia [employer] Other (20 sources) levoFLOXacin; 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: [LEVOFLOXACIN] Drug Allergy 12-31-19 24 Nausea/vomiting , GI intolerance [facility] Medications Current Medications Medication Drug Class(es) Dates Sig (Normalized) Sig (Original) ascorbic acid 1000 mg oral tablet (10 sources) Vitamin C take 1 tablet by mouth in the morning Ascorbic Acid (vitamin C) 1000 MG tablet Take 1,000 mg by mouth in the morning. Active aspirin 81 mg delayed release oral tablet (20 sources) Platelet Aggregation Inhibitor, Nonsteroidal Anti-inflammatory Drug Start: 03-25-2022 take 1 tablet by mouth once daily in the morning Aspirin 81 mg Tablet,Delayed Release (Dr/Ec) Active 81 MG PO Every morning March 25, 2022 12:00am Complies with drug therapy ASPIRIN 81 MG ch ewable tablet 1 (one) time each day at the same time. Active take 1 tablet by mouth once reynold y Aspirin 81 MG 1 tablet Orally Once a day Active b complex vitamins (Vitamins B Complex) capsule (2 sources) take 1 capsule by mo uth once daily b complex vitamins (Vitamins B Complex) capsule Take 1 capsule by mouth once daily. Active take 1 capsule by mouth once yee ly b complex vitamins (Vitamins B Complex) capsule Take 1 capsule by mouth once daily. 0 Active b complex vitamins capsule (2 sources) take 1 capsule by mouth in the morning b complex vitamins capsule Take 1 capsule by mouth in the morning. Active Bioflavonoid Products (Brooke-C) tablet (2 sources) Bioflavonoid Pro ducts (Brooke-C) tablet as directed Orally Active Blood-Glucose Sensor (Webeecom G7 Sensor) device (19 sources) Start: 09-12-2024 Blood-Glucose Sensor (Dexcom G7 Sensor) device Active 0 .Route September 11, 2024 11:00pm As directed Start: 09-12-2024 Blood-Glucose Sensor (Dexcom G7 Sensor) device Active 0 .Route September 12, 2024 12:00am As directed calcium carbonate 1500 mg oral tablet (15 sources) take 1 tablet by nicola th every twenty-four hours Calcium 600 MG 1 tablet with meals Orally Once a day Active take 1 tablet by nicola th every twenty-four hours Calcium 600 MG 1 tablet with meals Orally Once a day Active cholecalciferol 0.05 mg oral capsule (20 sources) Vitamin D Start: 03-01-2024 take 1 capsule by mouth once daily Cholecalciferol (Vitamin D3) 50 mcg (2,000 unit) capsule Active 50 MCG PO Daily March 01, 2024 12:00am Complies with drug therapy Start: 12-30-2022 GNP Vitamin D Maximum Strength 50 MCG (2000 UT) tablet Take by mouth Daily. 12/30/2022 Active clotrimazole 10 mg oral lozenge (1 source) Azole Antifungal Start: 07-12-2025 Clotrimazole 10 mg deshawn Active 10 MG MUCOUS MEM Five times daily July 12, 2025 12:00am Complies with drug therapy Coenzyme Q10 (CO Q 10 PO) (2 sources) Coenzyme Q10 (CO Q 10 PO) Take by mouth Active Continuous Blood Gluc Reception Manager (Dexcom G7 Reception Manager) device (5 sources) Start: 07-16-2023 Continuous Blo od Gluc Reception Manager (Dexcom G7 Reception Manager) device USE DIRECTED 07/16/2023 Active Continuous Blood Gluc Sensor (Dexcom G7 Sensor) misc (5 sources) Start: 08-18-2023 Continuous Blo od Gluc Sensor (Dexcom G7 Sensor) misc USE DIRECTED, CHANGE EVERY 10 DAYS 08/18/2023 Active CoQ-10 (15 sources) CoQ-10 Active CoQ-10 100 MG (6 sources) CoQ-10 100 MG as directed Orally ONCE A DAY Active Dexcom G6 Reception Manager - (20 sources) Start: 03-19-2021 Dexcom G6 [...] months Feb, Active Start: 03-19-2021 Dexcom G7 Reception Manager - (20 sources) Start: 07-02-2023 Dexcom G7 [...] once daily ergocalciferol (Vitamin D-2) 1.25 MG (07343 UT) capsule Take 1 capsule (50,000 Units) by mouth once daily. 08/29/2021 Active Start: 08-29-2021 take 1 tablet by nicola two times weekly Vitamin D (Ergocalciferol) 1.25 MG (63738 UT) Oral Capsule Take 1 tablet twice weekly Quantity: 0 Refills: 0 Ordered: 14-Jan-2022 DO Start : 29-Aug-2021 Active Start: 06-15-2020 End: 03-01-2024 take 1 capsule by mouth every week Ergocalciferol (Vitamin D2) 1,250 mcg (50,000 unit) Capsule Discontinued 1250 MCG PO every week June 15, 2020 12:00am March 01, 2024 9:34am thursday take 1 capsule by mo ut every week Ergocalciferol 97882 UNIT 1 capsule Orally Q week Active take 1 capsule by [facility] every week Ergocalciferol 06363 UNIT 1 capsule Orally Q week Active [...] day for 14 days Sep, Active Insulin Degludec 200 unit/mL (3 mL) insulin pen (5 sources) Start: 03-06-2025 Insulin Deglud ec 200 unit/mL (3 mL) insulin pen Active 60 UNIT SUBCUT Daily March 06, 2025 8:13am Start: 02-16-2025 End: 03-06-2025 Insulin Degludec 200 unit/mL (3 mL) insulin pen Discontinued UNIT SUBCUT February 16, 2025 12:00am March 06, 2025 8:16am Start: 02-16-2025 Insulin Deglud ec 200 unit/mL (3 mL) insulin pen Active UNIT SUBCUT February 16, 2025 12:00am 3 ml insulin lispro 100 unt/ml pen injector (20 sources) Insulin Analog Start: 05-15-2025 insulin lispro (HumaLOG KWIKPEN) 100 UNIT/ML injection Indications: Type 2 diabetes mellitus with peripheral neuropathy (HCC) 10 units breakfast, 14 units dinner plus correction 1:30 > 150 mg/dl (max daily 50 units) 15 mL 3 05/15/2025 Active Start: 05-15-2025 insulin lispro (HumaLOG KWIKPEN) 100 UNIT/ML injection Indications: Type 2 diabetes mellitus with peripheral neuropathy (HCC) 10 units breakfast, 14 units dinner plus correction 1:30 > 150 mg/dl (max daily 50 units) 15 mL 3 05/15/2025 Active Start: 02-16-2025 End: 06-16-2025 Insulin Lispro (Humalog Kwik pen Insulin) 100 unit/mL insulin pen Active 8 - 12 UNIT SUBCUT Twice daily February 16, 2025 9:38am 8 units AM 12 units in the Afternoon and 12 units in the evening Complies with drug therapy Start: 06-21-2024 insulin lispro (HumaLOG) 100 UNIT/ML injection Indications: Type 2 diabetes mellitus with peripheral neuropathy (CMS/HCC) 5 units breakfast and dinner 15 mL 3 06/21/2024 Active Start: 04-06-2023 inject 100 [IU] by s ubcutaneous injection at bedtime Insulin Lispro (1 Unit Dial) 100 UNIT/ML Subcutaneous Solution Pen-injector ADMINISTER 5-6 UNITS SUBCUTANEOUSLY IN THE MORNING AND at bedtime Quantity: 12 Refills: 0 Ordered: 06-Apr-2023 DO Start : 06-Apr-2023 Active Start: 03-25-2022 End: 02-16-2025 inject 100 [IU] by subcutaneous injection once daily at bedtime as needed Insulin Lispro (Humalog Kwikpen Insulin) 100 unit/mL insulin pen Discontinued 5 - 6 UNIT SUBCUT Twice daily February 23, 2024 5:04pm February 16, 2025 9:40am once a day in the morning and PRN QHS Start: 07-25-2020 End: 02-23-2024 inject 5 [IU] by subcutaneous injection once daily at breakfast Insulin Lispro (Humalog Kwikpen Insulin) 100 unit/mL Insulin Pen Discontinued 5 UNIT SUBCUT Daily with breakfast July 25, 2020 12:00am February 23, 2024 5:05pm Start: 06-15-2019 End: 07-25-2020 inject 5 [IU] by subcutaneous injection once daily in the morning Insulin Lispro (Humalog U-100 Insulin) 100 unit/mL Cartridge Discontinued 5 UNIT SUBCUT Every morning June 15, 2019 12:00am July 25, 2020 1:10pm insulin lispro ( HumaLOG) 100 unit/mL injection Inject under the skin. Take as directed per insulin instructions. Active HumaLOG KwikPen 100 UNIT/ML 7 units q am 5-7 U qhs Subcutaneous BID - Once a day in AM, QHS prn Active HumaLOG SOLN USE DIRECTED. Quantity: 0 Refills: 0 Ordered: 20-Feb-2022 DO Active Insulin Lispro (Humalog Kwik pen Insulin) 100 unit/mL insulin pen (20 sources) Start: 02-16-2025 Insulin Lispro (Humalog Kwikpen Insulin) 100 unit/mL insulin pen Active 8 - 12 UNIT SUBCUT Twice daily February 16, 2025 9:38am 8 units AM 12 units in the Afternoon and 12 units in the evening Start: 02-23-2024 End: 02-16-2025 inject 100 [IU] by subcutaneous injection once daily at bedtime as needed Insulin Lispro (Humalog Kwikpen Insulin) 100 unit/mL insulin pen Discontinued 5 - 6 UNIT SUBCUT Twice daily February 23, 2024 5:04pm February 16, 2025 9:40am once a day in the morning and PRN QHS Start: 02-23-2024 inject 100 [IU] by s ubcutaneous injection once daily at bedtime as needed Insulin Lispro (Humalog Kwikpen Insulin) 100 unit/mL insulin pen Active 5 - 6 UNIT SUBCUT Twice daily February 23, 2024 4:04pm once a day in the morning and PRN QHS Start: 02-23-2024 inject 100 [IU] by s ubcutaneous injection once daily at bedtime as needed Insulin Lispro (Humalog Kwikpen Insulin) 100 unit/mL insulin pen Active 5 - 6 UNIT SUBCUT Twice daily February 23, 2024 5:04pm once a day in the morning and PRN QHS 3 ml insulin, regular, human 500 unt/ml pen injector (20 sources) Insulin Start: 01-03-2025 insulin regula r (HumuLIN R U-500 KWIKPEN) 500 UNIT/ML CONCENTRATED injection Indications: Type 2 diabetes mellitus with peripheral neuropathy ([facility]/HCC) 55 units breakfast and 25 units dinner 6 mL 3 01/03/2025 Active Start: 03-01-2024 End: 02-16-2025 Insulin Regular Hum U-500 Co nc (Humulin R U-500 (Conc) Kwikpen) 500 unit/mL (3 mL) insulin pen Discontinued 55 UNIT SUBCUT Twice daily March 01, 2024 9:35am February 16, 2025 9:37am Start: 02-23-2024 End: 03-01-2024 inject 60 [IU] [...] in the evening subcutaneously as directed; Start: 10-12-2023 insulin regula r (HumuLIN R U-500 KWIKPEN) 500 UNIT/ML CONCENTRATED injection Indications: Type 2 diabetes mellitus with peripheral neuropathy (CMS/HCC) 55 units breakfast and 25 units dinner 3 mL 10/12/2023 Active Start: 04-06-2023 inject 60 [IU] by warren [...] to dietary intake. Start: 01-21-2018 End: 02-11-2018 inject 1 dose by subcutaneous injection four times daily Insulin Regular Hum U-500 Conc (Humulin R U-500 (Conc) Kwikpen) 500 unit/mL (3 mL) Insulin Pen Discontinued 0 .ROUTE .COMPLEX Protocol: For use with Humulin 500 Kwik Pen-Use for patients using less than 300 total units a day-Administer 30 minutes prior to the meal whenever possible -If the patient is NPO give 50% of scheduled dose -If patient does not eat all carbs, give balance of carbs within 2 hour post prandial -Do not hold any dose without notifying provider1. A hospital pharmacist will send to the floor the U-500 Regular Concentrated Insulin KwikPen for administration.2.High-alert medication labeling will be attached to the outside of the pharmacy delivery bag and labeling on the pen will include actual U-500 units and for subcutaneous administration only. Pharmacy will also include the This patient is receiving concentrated regular insulin U-500 informational sheet for verification of U-500 dose.3.Independent documented double checks are required at administration. Barcode scanning to verify the correct dose must be used in all cases. Only RNs may administer U-500 insulin. LPNs may facilitate completion of the independent double checkverification at administration.4.Patients treated with U-500 insulin should have frequent (at least four times a day) capillary or venous blood glucose measurements before each dose is given. 5.Handoff communications should also take place among nursing staff upon patient transfer or shift transfer if applicable6. If an order for U-500 insulin is discontinued or the patient is discharged, the nurse [...] and up. notify provider Dose/Route: 35 units January 21, 2018 1:00am February 11, 2018 11:17am Check glucose ac, hs. Use corrective scale ac tid. Use hs if glucose >225. Please contact the information source for Protocol details. Start: 01-21-2018 End: 02-11-2018 Insulin Regular Hum U-500 Co nc (Humulin R U-500 (Conc) Kwikpen) 500 unit/mL (3 mL) Insulin Pen Discontinued 0 .ROUTE .COMPLEX January 21, 2018 1:00am February 11, 2018 11:17am Check glucose ac, hs. Use corrective scale ac tid. Use hs if glucose >225. Please contact the information source for Protocol details. Start: 01-17-2018 End: 02-11-2018 Insulin Regular Hum [...] 25, 2017 1:00am December 25, 2017 3:53pm insulin regular (HumuLIN R U-500, Conc, Insulin) 500 unit/mL CONCENTRATED injection Inject under the skin. Active inject 60 [IU] by warren bcutaneous injection [...] 3 boxes or 3 month supply Active Lactobacillus Combination No.4 (Probiotic) 3 billion cell capsule (1 source) Start: 07-12-2025 take 3 capsules by mouth once daily Lactobacillus Combination No.4 (Probiotic) 3 billion cell capsule Active 3000 MMU CELLS PO Daily July 12, 2025 12:00am administer with a meal Complies with drug therapy levoFLOXacin 500 mg oral tablet (3 sources) Quinolone Antimicrobial Start: 12-30-2023 take 1 tablet by mouth every twenty-four hours levoFLOXacin 500 MG 1 tablet Orally Once a day for 7 days Nov, Active linezolid 600 mg oral tablet (1 source) Oxazolidinone Antibacterial Start: 07-12-2025 take 1 tablet by mouth twice daily Linezolid 600 mg tablet Active 600 MG PO Twice daily July 12, 2025 12:00am Complies with drug therapy magnesium glycinate 100 mg oral tablet (20 sources) Start: 06-17-2019 Magnesium Glycinate 100 mg Tablet Active 600 MG PO Daily at bedtime June 17, 2019 12:00am Complies with drug therapy Start: 06-17-2019 take 600 mg by mouth once daily at bedtime Magnesium Glycinate Active 600 MG PO Daily at bedtime June 17, 2019 12:00am Start: 01-19-2018 End: 02-11-2018 Magnesium Glycinate 100 mg T ablet Discontinued 600 MG PO Daily at bedtime January 19, 2018 1:00am February 11, 2018 11:15am Start: 01-19-2018 End: 02-11-2018 take 600 mg by mouth once daily at bedtime Magnesium Glycinate Discontinued 600 MG PO Daily at bedtime January 19, 2018 1:00am February 11, 2018 11:15am Magnesium Glycinate Plus 600 mg (20 sources) Magnesium Glycin ate Plus 600 mg 1 tablet QHS Active nitroglycerin 0.4 mg sublingual tablet (20 sources) Nitrate Vasodilator Start: 03-25-2022 Nitroglyce rin 0.4 mg tablet, sublingual Active 0.4 MG BUCCAL As Directed as needed for Chest Pain March 25, 2022 12:00am Complies with drug therapy Start: 03-25-2022 nitroglycerin (Nitrostat) 0.4 mg SL tablet Indications: Chest pain, unspecified DISSOLVE 1 TABLET UNDER THE TONGUE EVERY 5 MINUTES NEEDED FOR CHEST PAIN. DO NOT EXCEED A TOTAL OF 3 DOSES IN 15 MINUTES. GO TO THE ER IF PERSISITS. 90 tablet 1 12/24/2023 Active Start: 03-25-2022 Nitroglycerin Active 0.4 MG BUCCAL As Directed March 24, 2022 11:00pm Pen Needle, Diabetic (2 sources) Start: 09-12-2024 Pen Needle, Di abetic Active 0 .Route September 12, 2024 1:53pm As directed Start: 09-12-2024 End: 09-12-2024 Pen Needle, Diabetic Discont inued 0 .Route September 12, 2024 12:00am September 12, 2024 1:53pm As directed polyethylene glycol 3350 601667 mg / potassium chloride 2970 mg / sodium bicarbonate 6740 mg / sodium chloride 5860 mg / sodium sulfate 76431 mg powder for oral solution (2 sources) Osmotic Laxative Start: 08-26-2023 Golytely 236 GM At 4:00 pm the day prior to colonoscopy Orally 8 ounces every 15 minutes for 1 days PLEASE CHECK ALLERGIES Jul, Active pregabalin 150 mg oral capsule (20 sources) Start: 01-09-2025 End: 01-09-2025 take 1 capsule by mouth twice daily Pregabalin (Lyrica) 150 mg capsule Active 150 MG PO Twice daily 180 90 January 09, 2025 11:34am Complies with drug therapy Start: 01-21-2022 take 1 capsule by mo ut once in the morning Pregabalin 75 MG 1 capsule Orally Q AM Dec, Active Start: 08-02-2021 Start: 08-02-2021 take 1 capsule by mo uth once in the morning Pregabalin 75 MG 1 capsule Orally Q AM Jul, Active Start: 04-01-2021 End: 01-09-2025 take 1 capsule by mouth once daily Pregabalin (Lyrica) 150 mg capsule Discontinued 150 MG PO Daily February 12, 2024 12:34pm February 12, 2024 5:43pm Start: 04-01-2021 End: 02-12-2024 take 2 capsules by mouth once daily in the morning Pregabalin 75 mg capsule Discontinued 150 MG PO Every morning April 01, 2021 12:00am February 12, 2024 12:25pm Start: 06-15-2019 End: 01-09-2025 take 1 capsule by mouth once daily [...] the morning. 0 02/22/2024 Discontinued (Other)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 sources) Family history of other mental and behavioral disorders; 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: [Family history of other neurological diseases] 01-09-2025 Episodic Septicemia (except in labor) (20 sources) Septic shock; 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: [Sepsis, unspecified organism] 02-17-2018 Episodic Spondylosis; intervertebral disc disorders; other back problems (20 sources) Cervical spondylosis without myelopathy; 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: [Spondylosis without myelopathy or radiculopathy, cervical region] Onset: 1 Resolved: 1 Chronic Spondylosis; intervertebral disc disorders; other back problems (20 sources) Neck pain; 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: [Cervicalgia] Onset: 1 Resolved: 1 Episodic Sprains and strains (15 sources) Traumatic rupture of biceps tendon; 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: [Strain of muscle, fascia and tendon of long head of biceps, unspecified arm, initial encounter] 01-26-2025 Episodic Unclassified (1 source) CONTACT W/AND (SUSP) EXPOS COVID-19; 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: [CONTACT W/AND (SUSP) EXPOS COVID-19] Onset: 3 Unclassified (1 source) Cough, unspecified; 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: [Cough, unspecified] Onset: 5 Past or Other Problems Problem Classification Problem Date Documented Da te Episodic/Chronic Acquired foot deformities (3 sources) Varus deformity, not elsewhere classified, left ankle; 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: [Valgus deformity, not elsewhere classified, left ankle] Onset: 01-06-2023 Episodic Cardiac dysrhythmias (6 sources) Ventricular premature beats; 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: [Other premature beats] Resolved: 02-20-2022 Chronic Chronic kidney disease (20 sources) Chronic kidney disease; 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: [Chronic kidney disease, stage III (moderate)] Onset: 02-20-2022 Resolved: 02-20-2022 Other aftercare (1 source) 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 tutor (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 therapy; 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: [OT ALF CURRENT DRUG THERAPY] Onset: 01-06-2023 Episodic Other aftercare (1 source) 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; 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: [ALF CURRENT USE OF INSULIN] Onset: 01-06-2023 Episodic Other aftercare (1 source) [facility] (current) use of aspirin; 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: [ABSTRACTER CURRENT USE OF ASPIRIN] Onset: 01-06-2023 Episodic Other aftercare (1 source) [facility] (current) use of anticoagulants; 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: [ALF CURRNT USE ANTICOAGULANTS] Onset: 12-25-2022 Episodic Other bone disease and musculoskeletal deformities (1 source) Other specified disorders of bone density and structure, left ankle and foot; 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: [OT D/O BONE DEN STRUCT LT ANK FOOT] Onset: 01-06-2023 Episodic Other connective tissue disease (4 sources) Pain in left foot; 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: [PAIN IN LEFT FOOT] Onset: 11-16-2022 Episodic Other connective tissue disease (1 source) Pain in right foot; 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: [PAIN IN RIGHT FOOT] Onset: 11-16-2022 Episodic Other connective tissue disease (20 sources) Unspecified rotator cuff tear or rupture of right shoulder, not specified as traumatic; 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: [Disorders of bursae and tendons in shoulder region, unspecified] Onset: 01-23-2025 10-25-2024 Episodic Other lower respiratory disease (6 sources) [...] [PAIN IN LEFT ANKLE] Onset: 11-16-2022 Episodic Residual codes; unclassified (6 sources) History [...] source) Low back pain, unspecified M54.50 Unclassified (2 sources) Onset: 02-22-2024 02-22-2024 Results Test Name Value Interpretation Reference Range Facility Basophils Auto (Bld) [#/Vol] Ordered By: Karla Lyons on 06-30-2025 Basophils (Bld) [#/Vol] 0.0 10 3/uL 0.0-0.1 [facility] Basophils/100 WBC Auto (Bld) Ordered By: Karla Lyons on 06-30-2025 Basophils/100 WBC (Bld) 0.1 % Low 0.2-2.0 [facility] Eosinophils/100 WBC Auto (Bl d)Ordered By: Karla Lyons on 06-30-2025 Eosinophils/100 WBC (Bld) 0.0 % Low 0.9-7.0 [facility] Erythrocyte distribution wid th Auto (RBC) [Ratio]Ordered By: Karal Lyons on 06-30-2025 Erythrocyte distribution width (RBC) [Ratio] 12.2 % 11.0-15.0 [facility] Globulin Calc (S) [Mass/Vol] Ordered By: Karla Lyons on 06-30-2025 Globulin (S) [Mass/Vol] 4.1 g/dL [facility] Glomerular filtration rate ( GFR) estimation in non- AmericanOrdered By: Karla Lyons on 06-30-2025 GFR/1.73 sq M.predicted among non-blacks MDRD (S/P/Bld) [Vol rate/Area] 34 mL/min/{1.73_m2} Low >=60 mL/min/1.73 m 2 [facility] Hematocrit Auto (Bld) [Volum e fraction]Ordered By: Karla Lyons on 06-30-2025 Hematocrit (Bld) [Volume fraction] 30.3 % Low 36.0-48.0 [facility] Hemoglobin [Mass/volume] in BloodOrdered By: Karla Lyons on 06-30-2025 Hemoglobin (Bld) [Mass/Vol] 10.1 g/dL Low 12.0-16.0 [facility] Laboratory - Chemistry and C hemistry - challengeOrdered By: Karla Lyons on 06-30-2025 Albumin [Mass/Vol] 1.9 g/dL Low 3.4-5.0 [facility] ALP [Catalytic activity/Vol] 99 U/L 46-116 [facility] ALT [Catalytic activity/Vol] 23 U/L 14-59 [facility] AST [Catalytic activity/Vol] 14 U/L Low 15-37 [facility] Bilirubin [Mass/Vol] 0.3 mg/dL 0.2-1.0 [facility] Calcium [Mass/Vol] 8.6 mg/dL 8.5-10.1 [facility] Chloride [Moles/Vol] 106 mmol/L 98-107 [facility] CO2 [Moles/Vol] 23.0 mmol/L 21.0-32.0 [facility] Creatinine [Mass/Vol] 1.54 mg/dL High 0.55-1.02 [facility] GFR/1.73 sq M.predicted MDRD (S/P/Bld) [Vol rate/Area] 41 mL/min/{1.73_m2} Low >=60 mL/min/1.73 m 2 [facility] Glucose [Mass/Vol] 253 mg/dL High 74-106 [facility] Magnesium [Mass/Vol] 1.7 mg/dL Low 1.8-2.4 [facility] Potassium [Moles/Vol] 5.0 mmol/L 3.5-5.1 [facility] Protein [Mass/Vol] 6.0 g/dL Low 6.4-8.2 [facility] Sodium [Moles/Vol] 138 mmol/L 136-145 [facility] Urea nitrogen [Mass/Vol] 56.0 mg/dL High 7.0-18.0 [facility] Urea nitrogen/Creatinine [Mass ratio] 36.4 mg/mg [facility] Laboratory - Hematology and Cell countsOrdered By: Karla Lyons on 06-30-2025 ESR (Bld) [Velocity] 106 mm/h High <=30 [facility] Immature granulocytes/100 WBC (Bld) 0.8 % High 0.0-0.5 [facility] Leukocytes [#/volume] correc praneeth for nucleated erythrocytes in Blood by Automated counOrdered By: Karla Lyons on 06-30-2025 WBC corrected for nucl RBC Auto (Bld) [#/Vol] 11.8 10 3/uL High 4.0-11.0 [facility] Lymphocytes Auto (Bld) [#/Vo l]Ordered By: Karla Lyons on 06-30-2025 Lymphocytes (Bld) [#/Vol] 0.8 10 3/uL Low 1.2-3.8 [facility] Lymphocytes/100 WBC Auto (Bl d)Ordered By: Karla Lyons on 06-30-2025 Lymphocytes/100 WBC (Bld) 7.0 % Low 20.5-60.0 [facility] MCH Auto (RBC) [Entitic mass ]Ordered By: Karla Lyons on 06-30-2025 MCH (RBC) [Entitic mass] 29.3 pg 26.7-34.0 [facility] MCHC Auto (RBC) [Mass/Vol]Or dered By: Karla Lyons on 06-30-2025 MCHC (RBC) [Mass/Vol] 33.3 g/dL 29.9-35.2 [facility] MCV Auto (RBC) [Entitic vol] Ordered By: Karla Lyons on 06-30-2025 MCV (RBC) [Entitic vol] 87.8 fL 81.0-99.0 [facility] Monocytes Auto (Bld) [#/Vol] Ordered By: Karla Lyons on 06-30-2025 Monocytes (Bld) [#/Vol] 0.5 10 3/uL 0.3-0.8 [facility] Monocytes/100 WBC Auto (Bld) Ordered By: Karla Lyons on 06-30-2025 Monocytes/100 WBC (Bld) 3.9 % 1.7-12.0 [facility] Neutrophils Auto (Bld) [#/Vo l]Ordered By: Karla Lyons on 06-30-2025 Neutrophils (Bld) [#/Vol] 10.4 10 3/uL High 1.4-6.5 [facility] Neutrophils/100 WBC Auto (Bl d)Ordered By: Karla Lyons on 06-30-2025 Neutrophils/100 WBC (Bld) 88.2 % High 43.0-75.0 [facility] No Panel InformationOrdered By: Gustavo Cuevas on 06-30-2025 Anaerobe Identification Only [facility] No Panel InformationOrdered By: Karla Lyons on 06-30-2025 C-Reactive Protein, Quantitative 17.95 mg/dL High <=0.50 [facility] Eosinophils # (Auto) 0.0 10 3/uL 0.0-0.7 [facility] Immature Granulocyte # (Auto) 0.09 10 3/uL High 0.00-0.03 [facility] Platelet mean volume Auto (B ld) [Entitic vol]Ordered By: Karla Lyons on 06-30-2025 Platelet mean volume (Bld) [Entitic vol] 11.5 fL 9.5-13.5 [facility] Platelets Auto (Bld) [#/Vol] Ordered By: Karla Lyons on 06-30-2025 Platelets (Bld) [#/Vol] 184 10 3/uL 150-450 [facility] RBC Auto (Bld) [#/Vol]Ordere d By: Karla Lyons on 06-30-2025 RBC (Bld) [#/Vol] 3.45 10 6/uL Low 4.20-5.40 [facility] Serum or plasma albumin/glob ulin mass ratioOrdered By: Karla Lyons on 06-30-2025 Albumin/Globulin [Mass ratio] 0.5 {ratio} [facility] Serum or plasma anion gap de terminationOrdered By: Karla Lyons on 06-30-2025 Anion gap [Moles/Vol] 14.0 [facility] Basophils Auto (Bld) [#/Vol] Ordered By: Karla Lyons on 06-29-2025 Basophils (Bld) [#/Vol] 0.0 10 3/uL 0.0-0.1 [facility] Basophils/100 WBC Auto (Bld) Ordered By: Karla Lyons on 06-29-2025 Basophils/100 WBC (Bld) 0.1 % Low 0.2-2.0 [facility] Eosinophils/100 WBC Auto (Bl d)Ordered By: Karla Lynos on 06-29-2025 Eosinophils/100 WBC (Bld) 0.1 % Low 0.9-7.0 [facility] Erythrocyte distribution wid th Auto (RBC) [Ratio]Ordered By: Karla Lyons on 06-29-2025 Erythrocyte distribution width (RBC) [Ratio] 12.3 % 11.0-15.0 [facility] Globulin Calc (S) [Mass/Vol] Ordered By: Karla Lyons on 06-29-2025 Globulin (S) [Mass/Vol] 4.3 g/dL [facility] Glomerular filtration rate ( GFR) estimation in non- AmericanOrdered By: Karla Lyons on 06-29-2025 GFR/1.73 sq M.predicted among non-blacks MDRD (S/P/Bld) [Vol rate/Area] 31 mL/min/{1.73_m2} Low >=60 mL/min/1.73 m 2 [facility] Hematocrit Auto (Bld) [Volum e fraction]Ordered By: Karla Lyons on 06-29-2025 Hematocrit (Bld) [Volume fraction] 31.1 % Low 36.0-48.0 [facility] Hemoglobin [Mass/volume] in BloodOrdered By: Karla Lyons on 06-29-2025 Hemoglobin (Bld) [Mass/Vol] 10.6 g/dL Low 12.0-16.0 [facility] Laboratory - Chemistry and C hemistry - challengeOrdered By: Karla Lyons on 06-29-2025 Albumin [Mass/Vol] 2.1 g/dL Low 3.4-5.0 [facility] ALP [Catalytic activity/Vol] 88 U/L 46-116 [facility] ALT [Catalytic activity/Vol] 17 U/L 14-59 [facility] AST [Catalytic activity/Vol] 14 U/L Low 15-37 [facility] Bilirubin [Mass/Vol] 0.5 mg/dL 0.2-1.0 [facility] Calcium [Mass/Vol] 8.9 mg/dL 8.5-10.1 [facility] Chloride [Moles/Vol] 104 mmol/L 98-107 [facility] CO2 [Moles/Vol] 21.2 mmol/L 21.0-32.0 [facility] Creatinine [Mass/Vol] 1.68 mg/dL High 0.55-1.02 [facility] GFR/1.73 sq M.predicted MDRD (S/P/Bld) [Vol rate/Area] 37 mL/min/{1.73_m2} Low >=60 mL/min/1.73 m 2 [facility] Glucose [Mass/Vol] 201 mg/dL High 74-106 [facility] Potassium [Moles/Vol] 5.1 mmol/L 3.5-5.1 [facility] Protein [Mass/Vol] 6.4 g/dL 6.4-8.2 [facility] Sodium [Moles/Vol] 137 mmol/L 136-145 [facility] Urea nitrogen [Mass/Vol] 62.0 mg/dL High 7.0-18.0 [facility] Urea nitrogen/Creatinine [Mass ratio] 36.9 mg/mg [facility] Laboratory - Chemistry and C hemistry - challengeOrdered By: Elpidio Whipple on 06-29-2025 Magnesium [Mass/Vol] 1.9 mg/dL 1.8-2.4 [facility] - Hematology and Cell countsOrdered By: Karla Lyons on 06-29-2025 Immature granulocytes/100 WBC (Bld) 0.3 % 0.0-0.5 [facility] Leukocytes [#/volume] correc praneeth for nucleated erythrocytes in Blood by Automated counOrdered By: Karla Lyons on 06-29-2025 WBC corrected for nucl RBC Auto (Bld) [#/Vol] 14.5 10 3/uL High 4.0-11.0 [facility] Lymphocytes Auto (Bld) [#/Vo l]Ordered By: Karla yLons on 06-29-2025 Lymphocytes (Bld) [#/Vol] 0.7 10 3/uL Low 1.2-3.8 [facility] Lymphocytes/100 WBC Auto (Bl d)Ordered By: Karla Lyons on 06-29-2025 Lymphocytes/100 WBC (Bld) 4.9 % Low 20.5-60.0 [facility] MCH Auto (RBC) [Entitic mass ]Ordered By: Karla Lyons on 06-29-2025 MCH (RBC) [Entitic mass] 30.1 pg 26.7-34.0 [facility] MCHC Auto (RBC) [Mass/Vol]Or dered By: Karla Lyons on 06-29-2025 MCHC (RBC) [Mass/Vol] 34.1 g/dL 29.9-35.2 [facility] MCV Auto (RBC) [Entitic vol] Ordered By: Karla Lyons on 06-29-2025 MCV (RBC) [Entitic vol] 88.4 fL 81.0-99.0 [facility] Monocytes Auto (Bld) [#/Vol] Ordered By: Karla Lyons on 06-29-2025 Monocytes (Bld) [#/Vol] 0.7 10 3/uL 0.3-0.8 [facility] Monocytes/100 WBC Auto (Bld) Ordered By: Karla Lyons on 06-29-2025 Monocytes/100 WBC (Bld) 4.8 % 1.7-12.0 [facility] Neutrophils Auto (Bld) [#/Vo l]Ordered By: Karla Lyons on 06-29-2025 Neutrophils (Bld) [#/Vol] 13.0 10 3/uL High 1.4-6.5 [facility] Neutrophils/100 WBC Auto (Bl d)Ordered By: Karla Lyons on 06-29-2025 Neutrophils/100 WBC (Bld) 89.8 % High 43.0-75.0 [facility] No Panel InformationOrdered By: Karla Lyons on 06-29-2025 Eosinophils # (Auto) 0.0 10 3/uL 0.0-0.7 [facility] Immature Granulocyte # (Auto) 0.05 10 3/uL High 0.00-0.03 [facility] Platelet mean volume Auto (B ld) [Entitic vol]Ordered By: Karla Lyons on 06-29-2025 Platelet mean volume (Bld) [Entitic vol] 11.4 fL 9.5-13.5 [facility] Platelets Auto (Bld) [#/Vol] Ordered By: Karla Lyons on 06-29-2025 Platelets (Bld) [#/Vol] 178 10 3/uL 150-450 [facility] RBC Auto (Bld) [#/Vol]Ordere d By: Karal Lyons on 06-29-2025 RBC (Bld) [#/Vol] 3.52 10 6/uL Low 4.20-5.40 [facility] Serum or plasma albumin/glob ulin mass ratioOrdered By: Karla Lyons on 06-29-2025 Albumin/Globulin [Mass ratio] 0.5 {ratio} [facility] Serum or plasma anion gap de terminationOrdered By: Karla Lyons on 06-29-2025 Anion gap [Moles/Vol] 16.9 mmol/L [facility] Basophils Auto (Bld) [#/Vol] Ordered By: Charan Casey on 06-28-2025 Basophils (Bld) [#/Vol] 0.0 10 3/uL 0.0-0.1 [facility] Basophils/100 WBC Auto (Bld) Ordered By: Charan Casey on 06-28-2025 Basophils/100 WBC (Bld) 0.1 % Low 0.2-2.0 [facility] Eosinophils/100 WBC Auto (Bl d)Ordered By: Charan Casey on 06-28-2025 Eosinophils/100 WBC (Bld) 0.1 % Low 0.9-7.0 [facility] Erythrocyte distribution wid th Auto (RBC) [Ratio]Ordered By: Charan Casey on 06-28-2025 Erythrocyte distribution width (RBC) [Ratio] 12.1 % 11.0-15.0 [facility] Globulin Calc (S) [Mass/Vol] Ordered By: Gustavo Cuevas on 06-28-2025 Globulin (S) [Mass/Vol] 4.6 g/dL [facility] Glomerular filtration rate ( GFR) estimation in non- AmericanOrdered By: Gustavo Cuevas on 06-28-2025 GFR/1.73 sq M.predicted among non-blacks MDRD (S/P/Bld) [Vol rate/Area] 19 mL/min/{1.73_m2} Low >=60 mL/min/1.73 m 2 [facility] Hematocrit Auto (Bld) [Volum e fraction]Ordered By: Charan Casey on 06-28-2025 Hematocrit (Bld) [Volume fraction] 33.7 % Low 36.0-48.0 [facility] Hemoglobin [Mass/volume] in BloodOrdered By: Charan Casey on 06-28-2025 Hemoglobin (Bld) [Mass/Vol] 11.7 g/dL Low 12.0-16.0 [facility] INR in Platelet poor plasma by Coagulation assayOrdered By: Gustavo Cuevas on 06-28-2025 INR Coag (PPP) [Relative time] 1.02 {INR} [facility] Comment on above: DESIRED INR:2.0-3.0 CONDITIONS NOT LISTED BELOW2.5-3.5 FOR PROSTHETIC HEART VALVE REPLACEMENT2.5-3.5 RECURRENT THROMBOSIS Laboratory - Chemistry and C hemistry - challengeOrdered By: Gustavo Cuevas on 06-28-2025 Albumin [Mass/Vol] 2.7 g/dL Low 3.4-5.0 [facility] ALP [Catalytic activity/Vol] 90 U/L 46-116 [facility] ALT [Catalytic activity/Vol] 23 U/L 14-59 [facility] AST [Catalytic activity/Vol] 25 U/L 15-37 [facility] Bilirubin [Mass/Vol] 0.6 mg/dL 0.2-1.0 [facility] Calcium [Mass/Vol] 9.3 mg/dL 8.5-10.1 [facility] Chloride [Moles/Vol] 99 mmol/L 98-107 [facility] CO2 [Moles/Vol] 22.3 mmol/L 21.0-32.0 [facility] Creatinine [Mass/Vol] 2.58 mg/dL High 0.55-1.02 [facility] GFR/1.73 sq M.predicted MDRD (S/P/Bld) [Vol rate/Area] 23 mL/min/{1.73_m2} Low >=60 mL/min/1.73 m 2 [facility] Glucose [Mass/Vol] 81 mg/dL 74-106 [facility] Lactate [Moles/Vol] 1.3 mmol/L 0.4-2.0 [facility] Potassium [Moles/Vol] 4.9 mmol/L 3.5-5.1 [facility] Protein [Mass/Vol] 7.3 g/dL 6.4-8.2 [facility] Sodium [Moles/Vol] 136 mmol/L 136-145 [facility] Urea nitrogen [Mass/Vol] 72.0 mg/dL High 7.0-18.0 [facility] Urea nitrogen/Creatinine [Mass ratio] 27.9 mg/mg [facility] Laboratory - Hematology and Cell countsOrdered By: Charan Casey on 06-28-2025 ESR (Bld) [Velocity] 104 mm/h High <=30 [facility] Immature granulocytes/100 WBC (Bld) 0.5 % 0.0-0.5 [facility] Leukocytes [#/volume] correc praneeth for nucleated erythrocytes in Blood by Automated counOrdered By: Charan Casey on 06-28-2025 WBC corrected for nucl RBC Auto (Bld) [#/Vol] 17.3 10 3/uL High 4.0-11.0 [facility] Lymphocytes Auto (Bld) [#/Vo l]Ordered By: Charan Casey on 06-28-2025 Lymphocytes (Bld) [#/Vol] 0.7 10 3/uL Low 1.2-3.8 [facility] Lymphocytes/100 WBC Auto (Bl d)Ordered By: Charan Casey on 06-28-2025 Lymphocytes/100 WBC (Bld) 4.0 % Low 20.5-60.0 [facility] MCH Auto (RBC) [Entitic mass ]Ordered By: Charan Casey on 06-28-2025 MCH (RBC) [Entitic mass] 30.4 pg 26.7-34.0 [facility] MCHC Auto (RBC) [Mass/Vol]Or dered By: Charan Casey on 06-28-2025 MCHC (RBC) [Mass/Vol] 34.7 g/dL 29.9-35.2 [facility] MCV Auto (RBC) [Entitic vol] Ordered By: Charan Casey on 06-28-2025 MCV (RBC) [Entitic vol] 87.5 fL 81.0-99.0 [facility] Monocytes Auto (Bld) [#/Vol] Ordered By: Charan Casey on 06-28-2025 Monocytes (Bld) [#/Vol] 0.7 10 3/uL 0.3-0.8 [facility] Monocytes/100 WBC Auto (Bld) Ordered By: Charan Casey on 06-28-2025 Monocytes/100 WBC (Bld) 4.0 % 1.7-12.0 [facility] Neutrophils Auto (Bld) [#/Vo l]Ordered By: Charan Casey on 06-28-2025 Neutrophils (Bld) [#/Vol] 15.8 10 3/uL High 1.4-6.5 [facility] Neutrophils/100 WBC Auto (Bl d)Ordered By: Charan Casey on 06-28-2025 Neutrophils/100 WBC (Bld) 91.3 % High 43.0-75.0 [facility] No Panel InformationOrdered By: Charan Casey on 06-28-2025 C-Reactive Protein, Quantitative 29.00 mg/dL High <=0.50 [facility] Eosinophils # (Auto) 0.0 10 3/uL 0.0-0.7 [facility] Immature Granulocyte # (Auto) 0.09 10 3/uL High 0.00-0.03 [facility] No Panel InformationOrdered By: Gustavo Cuevas on 06-28-2025 Venous Blood Partial Pressure CO2 41.7 mm[Hg] 40.0-52.0 [facility] Venous Blood pH 7.354 7.330-7.430 [facility] Platelet mean volume Auto (B ld) [Entitic vol]Ordered By: Charan Casey on 06-28-2025 Platelet mean volume (Bld) [Entitic vol] 11.8 fL 9.5-13.5 [facility] Platelets Auto (Bld) [#/Vol] Ordered By: Charan Casye on 06-28-2025 Platelets (Bld) [#/Vol] 178 10 3/uL 150-450 [facility] Prothrombin time (PT)Ordered By: Gustavo Cuevas on 06-28-2025 PT Coag (PPP) [Time] 10.8 s 9.0-11.6 [facility] RBC Auto (Bld) [#/Vol]Ordere d By: Charan Casey on 06-28-2025 RBC (Bld) [#/Vol] 3.85 10 6/uL Low 4.20-5.40 [facility] Serum or plasma albumin/glob ulin mass ratioOrdered By: Gustavo Cuevas on 06-28-2025 Albumin/Globulin [Mass ratio] 0.6 {ratio} [facility] Serum or plasma anion gap de terminationOrdered By: Gustavo Cuevas on 06-28-2025 Anion gap [Moles/Vol] 19.6 mmol/L [facility] X-ray reportOrdered By: Brian Mays on 06-05-2025 Study report [facility] [address] [address] XRay Report Signed Patient: Rita Cobb MR#: [id number] : 1960 Acct:[id number] Age/Sex: 64 / F ADM Date: 5 [facility] Room: Type: REG CLI Attending Dr: Acosta Castro DPM, MS Copies to: Acosta Castro DPM, MS~ Ordering Provider: Acosta Castro DPM, MS Date of Service: 06/05/25 XR/XR foot BI 3V: WEIGHT BEARING Bilateral foot x-rays INDICATION: Bilateral foot pain, painful ambulation, no known injury History of Charcot foot and left-sided surgery COMPARISON: Bilateral foot CT 10/13/2022 FINDINGS: There are Charcot changes identified involving the bilateral feet withmidfoot erosions and cortical disruption and subchondral cyst formation. Findings have progressed from the prior examination. There are evidence of postsurgical changes involving the left foot with intraoperative fusion hardware. Suspect minimal lucency surrounding the talar surgical screw anteriorly. Progressive midfoot subluxation identified with widening Lisfranc joint on the left. XR/XR foot BI 3V IMPRESSION: Progression of the Charcot changes bilaterally appearing most pronounced the left with progressive widening of the Lisfranc joint. Interval postsurgical changes involving the left foot without findings of hardware fracture. Question minimal lucency surrounding the anterior talar screw noted Negative acute osseous abnormality. Impression dictated by: Néstor Mays M.D. 06/05/2025 5:41 PM Dictation Location: [place] [address] Transcribed By: [facility] 06/05/251740 Dictated By: Néstor Mays MD 06/05/251734 Signed By: 06/05/251740 [facility] Work Phone: XR foot BI 3Von 06-05-2025 XR foot BI 3V [facility] [place] [address] XRay Report Signed Patient: Rita Cobb MR#: [id number] : 1960 Acct:[id number] Age/Sex: 64 / F ADM Date: 06/05/25 Loc: [facility] Room: Type: REG CLI Attending Dr: Acosta Castro DPM, MS Copies to: Acosta Castro DPM MS Ordering Provider: Peter Highlander,DPM, MS Date of Service: 06/05/25 XR/XR foot BI 3V: WEIGHT BEARING Bilateral foot x-rays INDICATION: Bilateral foot pain, painful ambulation, no known injury History of Charcot foot and left-sided surgery COMPARISON: Bilateral foot CT 10/13/2022 FINDINGS: There are Charcot changes identified involving the bilateral feet with midfoot erosions and cortical disruption and subchondral cyst formation. Findings have progressed from the prior examination. There are evidence of postsurgical changes involving the left foot with intraoperative fusion hardware. Suspect minimal lucency surrounding the talar surgical screw anteriorly. Progressive midfoot subluxation identified with widening Lisfranc joint on the left. XR/XR foot BI 3V IMPRESSION: Progression of the Charcot changes bilaterally appearing most pronounced the left with progressive widening of the Lisfranc joint. Interval postsurgical changes involving the left foot without findings of hardware fracture. Question minimal lucency surrounding the anterior talar screw noted Negative acute osseous abnormality. Impression dictated by: Néstor Mays M.D. 06/05/2025 5:41 PM Dictation Location: [place] [address] Transcribed By: [facility] 06/05/25 174 Dictated By: Néstor Mays MD 06/05/25 173 Signed By: 06/05/25 174 Normal [facility] HbA1c (Bld) [Mass fraction]o n 05-15-2025 Interpretation and review of laboratory results Abnormal [facility] - Hematology and Cell countson 05-15-2025 HbA1c (Bld) [Mass fraction] 8.1 % [facility] MR shoulder RT wo [facility] 02-2 MR shoulder RT wo [facility] [place] [address] MRI Report Signed Patient: Rita Cobb MR#: [id number] : 1960 Acct:[id number] Age/Sex: 64 / F ADM Date: 01/23/25 Loc: [facility] Room: Type: [facility] Attending Dr: Nader Curry DO Copies to: Nader Curry DO Ordering Provider: Nader Curry DO Date of Service: 01/23/25 MR/MR shoulder RT wo con: M75.101 - Unspecified rotator cuff tear or rupture of rig... MR RIGHT SHOULDER CLINICAL INFORMATION: Right shoulder pain with limited range of motion. COMPARISON: 10/25/2024. PROCEDURE: Axial, oblique coronal, and oblique sagittal long TR images of the shoulder were obtained. FINDINGS: ROTATOR CUFF AND ASSOCIATED STRUCTURES Biceps Tendon: There is a partial-thickness/spl it thickness tear of the long head biceps tendon which is edematous with fluid along the tendon sheath. Rotator cuff: There is a partial-thickness bursal surface tear of the supraspinatus tendon. There is edema within the subscapularis tendon suggesting tendinopathy. There is no evidence of tear. The infraspinatus tendon and teres minor tendons are intact. Musculature: There is no muscular tear, contusion, or atrophy. Bursa: There is a small amount of fluid in the subacromial bursa. OSSEOUS STRUCTURES Acromioclavicular joint: There are mild degenerative changes of the acromioclavicular joint. A type 2 acromion configuration is noted. There is no anterior or lateral acromial downsloping. Bones: No Hill-Sachs, reverse Hill-Sachs, or bony Bankart lesions are seen. There are no fractures. Subcortical cystic changes noted in the humeral head and within the glenoid. GLENOHUMERAL JOINT Joint: There is no glenohumeral joint effusion. 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 Labrum: The labrum is not optimally evaluated. Other support structures: No capsular or ligamentous abnormality is seen. MR/MR shoulder RT wo con IMPRESSION: 1. There is a partial-thickness/spl it thickness tear of the long head biceps tendon which is edematous with fluid along the tendon sheath. 2. There is a partial-thickness bursal surface tear of the supraspinatus tendon. 3. There is edema within the subscapularis tendon suggesting tendinopathy. 4. 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 5. Mild hypertrophic changes are noted in the acromioclavicular joint. Impression dictated by: Timothy Levi M.D.01/26/2025 9:38 AM Dictation Location: RADIO--24 Transcribed By: FRANKY 01/26/25937 Dictated By: Timothy Levi II, MD 01/26/25901 Signed By: 01/26/25937 Normal [facility] Influenza virus B Ag [Presen ce] in Upper respiratory specimen by Rapid immunoassayon 12-09-2024 FLUBV Ag IA.rapid Ql (Nph) Influenza virus B Ag [Presence] in Upper respiratory specimen by Rapid immunoassay [facility] No Panel Informationon 12-09 Influenza Type A (Rapid) Negative [facility] POC SARS CoV-2 Antigen Negative [facility] No Panel InformationOrdered By: Charan Casey on 12-09-2024 RSV (POC) [facility] RSV (POC) [facility] X-ray reportOrdered By: Brian Mays on 12-08-2024 Study report [place] [address] XRay Report Signed Patient: Rita Cobb MR#: [id number] : 1960 Acct:[id number] Age/Sex: 64 / F ADM Date: 5 Loc: [facility] Room: Type: [facility] [address] Attending Dr: Charan Casey DO Copies to: Charan Casey DO~ Ordering Provider: Charan Casey DO Date of Service: 12/08/24 XR/XR chest 2V*: R05.9 - Cough, unspecified PA AND LATERAL CHEST: CLINICAL HISTORY: Productive cough with green phlegm, rule out pneumonia COMPARISON: 12/30/2023 FINDINGS: Cardiomediastinal is unremarkable size. Lungs are clear. Focal airspace consolidation, pleural effusion or pneumothorax. Posterior changes involving the lower cervical spine. Posterior changes involving the lumbar spine degenerativechanges greatest involving the lower thoracic spine. XR/XR chest 2V* IMPRESSION: NO ACUTE CARDIOPULMONARY ABNORMALITY. Impression dictated by: Néstor Mays M.D.12/08/2024 3:59 PM Dictation Location: RADIO-PC-23 Transcribed By: FRANKY 12/08/24 1559 Dictated By: Néstor Mays MD 12/08/24 1524 Signed By: 12/08/24 1559 [facility] Work Phone: XR chest 2V*on 12-08-2024 XR chest 2V* [facility] [place] [address] [place] [address] XRay Report Signed Patient: Rita Cobb MR#: [id number] : 1960 Acct:[id number] Age/Sex: 64 / F ADM Date: 12/08/24 Loc: XDS Room: Type: REG CLI Attending Dr: Charan Casey DO Copies to: Charan Casey DO Ordering Provider: Charan Casey DO Date of Service: 12/08/24 XR/XR chest 2V*: R05.9 - Cough, unspecified PA AND LATERAL CHEST: CLINICAL HISTORY: Productive cough with green phlegm, rule out pneumonia COMPARISON: 12/30/2023 FINDINGS: Cardiomediastinal is unremarkable size. Lungs are clear. Focal airspace consolidation, pleural effusion or pneumothorax. Posterior changes involving the lower cervical spine. Posterior changes involving the lumbar spine degenerative changes greatest involving the lower thoracic spine. XR/XR chest 2V* IMPRESSION: NO ACUTE CARDIOPULMONARY ABNORMALITY. Impression dictated by: Néstor Mays M.D.12/08/2024 3:59 PM Dictation Location: RADIO-PC-23 Transcribed By: FRANKY 12/08/24 1559 Dictated By: Néstor Mays MD 12/08/24 1524 Signed By: 12/08/24 1559 Normal [facility] XR shoulder RT min 2V*on XR shoulder RT min 2V* [facility] [address] [place] [address] XRay Report Signed Patient: Rita Cobb MR#: [id number] : 1960 Acct:[id number] Age/Sex: 63 / F ADM Date: 10/25/24 Loc: [facility] Room: Type: REG CLI Attending Dr: Nader Curry DO Copies to: Nader Curry DO Ordering Provider: Nader Curry DO Date of Service: 10/25/24 XR/XR shoulder RT min 2V*: M25.511 - Pain in right shoulder RIGHT SHOULDER - 4 views CLINICAL HISTORY: Generalized right shoulder pain and loss of function. No injury. COMPARISON: None 05/19/2023 AP, Y, axillary and Grashey views were obtained. There is no evidence of fracture or dislocation. Mild degenerative change is present at the acromioclavicular joint and greater tuberosity. There are no significant soft tissue abnormalities. XR/XR shoulder RT min 2V* IMPRESSION: NO ACUTE BONY FINDINGS. Impression dictated by: Ibis Crisostomo M.D.10/25/2024 9:11 AM Dictation Location: [place] [address] Transcribed By: [facility] 10/25/24910 Dictated By: Ibis Crisostomo MD 10/25/24907 Signed By: 10/25/24 0911 Normal [facility] HbA1c (Bld) [Mass fraction]o n 10-17-2024 Interpretation and review of laboratory results Normal [facility] and Cell countson 10-17-2024 HbA1c (Bld) [Mass fraction] 7.6 % [facility] MM screening mammo BI w/CADo n 09-07-2024 MM screening mammo BI w/CAD [facility] [address] Mammography Report Signed Patient: Rita Cobb MR#: [id number] : 1960 Acct:[id number] Age/Sex: 63 / F ADM Date: 09/07/24 Loc: [place] Room: Type: REG CLI Attending Dr: Referral Self Copies to: Charan Casey DO SELF,REFERRAL Ordering Provider: SELF,REFERRAL Date of Service: 09/07/24 MM/MM screening mammo BI w/CAD: SCREENING CLINICAL DATA: Screening for malignancy. SCREENING MAMMOGRAM - FULL FIELD DIGITAL WITH TOMOSYNTHESIS AND CAD COMPARISON:Mammograms dating back to 2007 Tomosynthesis craniocaudal and mediolateral oblique views of both breasts were obtained using low- dose digital technique. This examination was reviewed with the aid of CAD. FINDINGS: The breast tissue is almost entirely fatty. There are no dominant masses, typically malignant calcifications or architectural distortion. There has been no significant interval change. MM/MM screening mammo BI w/CAD IMPRESSION: NO MAMMOGRAPHIC EVIDENCE OF MALIGNANCY. ROUTINE FOLLOW-UP IS RECOMMENDED IN ONE YEAR. RESULT CODE: 1 Negative DENSITY CODE: 1 (<25% glandular) FOLLOW UP: 1YR The false-negative rate of mammography is approximately 10-percent. Management of a palpable abnormality must be based on clinical grounds. Patient was entered into a reminder system with a target due date for the next mammogram. Impression dictated by: Sudhir Brown Jr., D.O.09/07/2024 9:04 AM Dictation Location: [facility] Transcribed By: FRANKY 09/07/24903 Dictated By: Sudhir Brown Jr, DO 09/07/24899 Signed By: 09/07/24903 Normal [facility] Albumin [Mass/volume] in Ser um or Plasma by Bromocresol green (BCG) dye binding methoOrdered By: Elpidio Whipple on 02-29-2024 Albumin BCG dye [Mass/Vol] 4.3 g/dL 3.5-5.7 [facility] Automated erythrocytes count in urine sediment (number/area)Ordered By: Elpidio Whipple on 02-29-2024 RBC Auto (Urine sed) [#/Area] 1-2 [HPF] 0-4 [facility] Automated leukocytes count i n urine sediment (number/area)Ordered By: Elpidio Whipple on 02-29-2024 WBC Auto (Urine sed) [#/Area] 5-9 [HPF] 0-4 [facility] Bilirubin Test strip Ql (U)O rdered By: Elpidio Whipple on 02-29-2024 Bilirubin Ql (U) Negative Negative [facility] Calcium [Mass/volume] in Ser um or PlasmaOrdered By: Elpidio Whipple on 02-29-2024 Calcium [Mass/Vol] 9.8 mg/dL 8.6-10.3 [facility] Carbon dioxide, total [Moles /volume] in Serum or PlasmaOrdered By: Elpidio Whipple on 02-29-2024 CO2 [Moles/Vol] 30.4 mmol/L 21.0-31.0 [facility] Chloride [Moles/volume] in S john or PlasmaOrdered By: Elpidio Whipple on 02-29-2024 Chloride [Moles/Vol] 103 mmol/L 98-107 [facility] Color Auto (U)Ordered By: Ab rahul Whipple on 02-29-2024 Color (U) Dark yellow Yellow [facility] Creatinine [Mass/volume] in Serum or PlasmaOrdered By: Elpidio Whipple on 02-29-2024 Creatinine [Mass/Vol] 1.19 mg/dL 0.60-1.20 [facility] Creatinine [Mass/volume] in UrineOrdered By: Elpidio Whipple on 02-29-2024 Creatinine (U) [Mass/Vol] 101.0 mg/dL [facility] Comment on above: No reference range e stablished Erythrocyte distribution wid th Auto (RBC) [Ratio]Ordered By: Elpidio Whipple on 02-29-2024 Erythrocyte distribution width (RBC) [Ratio] 12.9 % 11.9-15.3 [facility] Glucose [Mass/volume] in Ser um or PlasmaOrdered By: Elpidio Whipple on 02-29-2024 Glucose [Mass/Vol] 164 mg/dL 70-100 [facility] Comment on above: ADA recommended refe rence rangeRandom Glucose Reference Range is dependent on time and content of last meal. Glucose of more than 200 mg/dL in a nonstressed, ambulatory subject supports the diagnosis of Diabetes Mellitus. Hematocrit Auto (Bld) [Volum e fraction]Ordered By: Elpidio Whipple on 02-29-2024 Hematocrit (Bld) [Volume fraction] 39.7 % 34.0-46.4 [facility] Hemoglobin [Mass/volume] in BloodOrdered By: Elpidio Whipple on 02-29-2024 Hemoglobin (Bld) [Mass/Vol] 13.4 g/dL 11.8-15.4 [facility] Ketones Auto test strip (U) [Mass/Vol]Ordered By: Elpidio Whipple on 02-29-2024 Ketones (U) [Mass/Vol] Negative Negative Fi [facility] - UrinalysisOrder ed By: Elpidio Whipple on 02-29-2024 Hyaline casts LM Ql (Urine sed) 0-8 [LPF] 0-8 [facility] Leukocytes [#/volume] correc praneeth for nucleated erythrocytes in Blood by Automated counOrdered By: Elpidio Whipple on 02-29-2024 WBC corrected for nucl RBC Auto (Bld) [#/Vol] 4.5 10*3/uL 3.8-11.6 [facility] MCH Auto (RBC) [Entitic mass ]Ordered By: Elpidio Whipple on 02-29-2024 MCH (RBC) [Entitic mass] 29.1 pg 24.7-34.3 [facility] MCHC Auto (RBC) [Mass/Vol]Or dered By: Elpidio Whipple on 02-29-2024 MCHC (RBC) [Mass/Vol] 33.8 g/dL 32.0-35.0 [facility] MCV Auto (RBC) [Entitic vol] Ordered By: Elpidio Whipple on 02-29-2024 MCV (RBC) [Entitic vol] 86.2 fL 80-100 [facility] Magnesium [Mass/volume] in S john or PlasmaOrdered By: Elpidio Whipple on 02-29-2024 Magnesium [Mass/Vol] 1.6 mg/dL 1.9-2.7 [facility] Nitrite Test strip Ql (U)Ord ered By: Elpidio Whipple on 02-29-2024 Nitrite Ql (U) Negative Negative [facility] No Panel InformationOrdered By: Elpidio Whipple on 02-29-2024 Estimated GFR (CKD-EPI) 51.377 mL/Min [facility] Creatinine Clearance (Chem N/A [facility] Parathyrin.intact [Mass/volu me] in Serum or PlasmaOrdered By: Elpidio Whipple on 02-29-2024 Parathyrin.intact [Mass/Vol] 53.1 pg/mL 12- [facility] Phosphate [Mass/volume] in S john or PlasmaOrdered By: Elpidio Whipple on 02-29-2024 Phosphate [Mass/Vol] 2.8 mg/dL 2.5-4.5 [facility] Platelet mean volume Auto (B ld) [Entitic vol]Ordered By: Elpidio Whipple on 02-29-2024 Platelet mean volume (Bld) [Entitic vol] 9.5 fL 6.3-10.7 [facility] Platelets Auto (Bld) [#/Vol] Ordered By: Elpidio Whipple on 02-29-2024 Platelets (Bld) [#/Vol] 174 10*3/uL 150-450 [facility] Potassium [Moles/volume] in Serum or PlasmaOrdered By: Elpidio Whipple on 02-29-2024 Potassium [Moles/Vol] 4.6 mmol/L 3.5-5.1 [facility] Protein Auto test strip (U) [Mass/Vol]Ordered By: Elpidio Whipple on 02-29-2024 Protein (U) [Mass/Vol] 30 mg/dL Negative Fi [facility] Protein [Mass/volume] in Uri neOrdered By: Elpidio Whipple on 02-29-2024 Protein (U) [Mass/Vol] 43 mg/dL 0-9 [facility] RBC Auto (Bld) [#/Vol]Ordere d By: Elpidio Whipple on 02-29-2024 RBC (Bld) [#/Vol] 4.61 10*6/uL 3.60-5.00 [facility] Serum or plasma anion gap de terminationOrdered By: Elpidio Whipple on 02-29-2024 Anion gap [Moles/Vol] 11.2 mmol/L 6.0-15.0 [facility] Sodium [Moles/volume] in Ser um or PlasmaOrdered By: Elpidio Whipple on 02-29-2024 Sodium [Moles/Vol] 140 mmol/L 136-145 [facility] Specific gravity Auto test s trip (U) [Rel density]Ordered By: Elpidio Whipple on 02-29-2024 Specific gravity (U) [Rel density] 1.019 1.001-1.030 [facility] Squamous epithelial cells de tection in urine sediment by light microscopyOrdered By: Elpidio Whipple on 02-29-2024 Epithelial cells.squamous LM Ql (Urine sed) 10-19 [HPF] 0-2 [facility] Urate [Mass/volume] in Serum or PlasmaOrdered By: Elpidio Whipple on 02-29-2024 Urate [Mass/Vol] 7.1 mg/dL 2.3-6.6 [facility] Urea nitrogen [Mass/volume] in Serum or PlasmaOrdered By: Elpidio Whipple on 02-29-2024 Urea nitrogen [Mass/Vol] 29 mg/dL 7-25 [facility] Urine bacteria detection by automated methodOrdered By: Elpidio Whipple on 02-29-2024 Bacteria Auto Ql (U) None seen None Seen [facility] Urine clarity by refractomet ry automatedOrdered By: Elpidio Whipple on 02-29-2024 Clarity Refractometry automated (U) Clear Clear [facility] Urine culture routineOrdered By: Elpidio Whipple on 02-29-2024 Bacteria identified Cx Nom (U) 2 Days [facility] Urine glucose measurement by automated test strip (mass/volume)Ordered By: Elpidio Whipple on 02-29-2024 Glucose Auto test strip (U) [Mass/Vol] Normal mg/dL Normal [facility] Urine hemoglobin detection b y automated test stripOrdered By: Elpidio Whipple on 02-29-2024 Hemoglobin Auto test strip Ql (U) Negative Negative [facility] Urine leukocyte esterase det ection by automated test stripOrdered By: Elpidio Whipple on 02-29-2024 Leukocyte esterase Auto test strip Ql (U) 2+ Negative [facility] Urine protein/creatinine rat ioOrdered By: Elpidio Whipple on 02-29-2024 Protein/Creatinine (U) [Ratio] 426 mg/g{Cre} 0-200 [facility] Urobilinogen Auto test strip (U) [Mass/Vol]Ordered By: Elpidio Whipple on 02-29-2024 Urobilinogen (U) [Mass/Vol] Normal mg/dL Normal [facility] Vitamin D+Metabolites [Mass/ volume] in Serum or PlasmaOrdered By: Elpidio Whipple on 02-29-2024 Vitamin D+Metabolites [Mass/Vol] 48.0 ng/mL 30-100 [facility] Comment on above: VITAMIN D STATUS 25( [place])VITAMIN D RANGE (ng/mL) Deficient <20 Insufficient 20 to <30Sufficient 30 to 100Reference: Nayeli MF,Hannah SCHREIBER, Jose GILBERT, et al. Evaluation,treatment, and prevention of vitamin D deficiency; an Endocrine Society clinical practice guideline. JCEM. 2010; 96(7):1911-30. pH Auto test strip (U)Ordere d By: Elpidio Whipple on 02-29-2024 pH (U) 5.5 [pH] 5.0-9.0 [facility] RSVon 12-30-2023 RSV Ag IA Ql (Unsp spec) Negative [employer] Other Alanine aminotransferase [En zymatic activity/volume] in Serum or PlasmaOrdered By: Charan Casey on 11-26-2023 ALT [Catalytic activity/Vol] 16 U/L 7-52 [facility] Albumin [Mass/volume] in Ser um or Plasma by Bromocresol green (BCG) dye binding methoOrdered By: Charan Casey on 11-26-2023 Albumin BCG dye [Mass/Vol] 4.2 g/dL 3.5-5.7 [facility] Alkaline phosphatase [Enzyma tic activity/volume] in Serum or PlasmaOrdered By: Charan Casey on 11-26-2023 ALP [Catalytic activity/Vol] 65 U/L 34-104 [facility] Aspartate aminotransferase [ Enzymatic activity/volume] in Serum or PlasmaOrdered By: Charan Casey on 11-26-2023 AST [Catalytic activity/Vol] 16 U/L 13-39 [facility] Bilirubin.total [Mass/volume ] in Serum or PlasmaOrdered By: Charan Casey on 11-26-2023 Bilirubin [Mass/Vol] 0.6 mg/dL 0.3-1.0 [facility] Calcium [Mass/volume] in Ser um or PlasmaOrdered By: Charan aCsey on 11-26-2023 Calcium [Mass/Vol] 9.8 mg/dL 8.6-10.3 [facility] Carbon dioxide, total [Moles /volume] in Serum or PlasmaOrdered By: Charan Casey on 11-26-2023 CO2 [Moles/Vol] 34.6 mmol/L 21.0-31.0 [facility] Chloride [Moles/volume] in S john or PlasmaOrdered By: Charan Casey on 11-26-2023 Chloride [Moles/Vol] 101 mmol/L 98-107 [facility] Cholesterol [Mass/volume] in Serum or PlasmaOrdered By: Charan Casey on 11-26-2023 Cholesterol [Mass/Vol] 140 mg/dL 140-200 [facility] Comment on above: Chol less than 200 m g/dl low riskChol 201-239 mg/dl borderline riskChol 240 mg/dl and greater high risk Cholesterol in LDL Calc [Mas s/Vol]Ordered By: Charan Casey on 11-26-2023 Cholesterol in LDL [Mass/Vol] 56 mg/dL 0-100 [facility] Comment on above: LDL ATP III CLASSIFI CATIONLDL less than 100 mg/dL OptimalLDL 100-129 mg/dL Near or above optimalLDL 130-159 mg/dL Borderline highLDL 160-189 mg/dL HighLDL greater than 189 mg/dL Very high Cholesterol in VLDL Calc [Ma ss/Vol]Ordered By: Charan Casey on 11-26-2023 Cholesterol in VLDL [Mass/Vol] 45 mg/dL [facility] Creatinine [Mass/volume] in Serum or PlasmaOrdered By: Charan Casey on 11-26-2023 Creatinine [Mass/Vol] 1.25 mg/dL 0.60-1.20 [facility] Globulin Calc (S) [Mass/Vol] Ordered By: Charan Casey on 11-26-2023 Globulin (S) [Mass/Vol] 2.6 g/dL [facility] Glucose [Mass/volume] in Ser um or PlasmaOrdered By: Charan Casey on 11-26-2023 Glucose [Mass/Vol] 122 mg/dL 70-100 [facility] Comment on above: ADA recommended refe rence rangeRandom Glucose Reference Range is dependent on time and content of last meal. Glucose of more than 200 mg/dL in a nonstressed, ambulatory subject supports the diagnosis of Diabetes Mellitus. No Panel InformationOrdered By: Charan Casey on 11-26-2023 Estimated GFR (CKD-EPI) 48.432 mL/Min [facility] Creatinine Clearance (Chem N/A [facility] Potassium [Moles/volume] in Serum or PlasmaOrdered By: Charan Casey on 11-26-2023 Potassium [Moles/Vol] 4.6 mmol/L 3.5-5.1 [facility] Protein [Mass/volume] in Ser um or PlasmaOrdered By: Charan Casey on 11-26-2023 Protein [Mass/Vol] 6.8 g/dL 6.4-8.9 [facility] Serum or plasma albumin/glob ulin mass ratioOrdered By: Charan Casey on 11-26-2023 Albumin/Globulin [Mass ratio] 1.6 {ratio} [facility] Serum or plasma anion gap de terminationOrdered By: Charan Casey on 11-26-2023 Anion gap [Moles/Vol] 9.0 mmol/L 6.0-15.0 [facility] Serum or plasma high density lipoprotein (HDL) cholesterol measurementOrdered By: Charan Casey on 11-26-2023 Cholesterol in HDL [Mass/Vol] 39 mg/dL 23-92 [facility] Comment on above: HDL CHOL ATP-III CLA SSIFICATION Cardiovascular RiskHDL > or equal to 60 mg/dL LOWHDL < 40 mg/dL HIGH Serum or plasma total choles terol/high density lipoprotein (HDL) cholesterol mass ratOrdered By: Charan Casey on 11-26-2023 Cholesterol.total/Mary sterol in HDL [Mass ratio] 3.6 {ratio} <5.0 [facility] Sodium [Moles/volume] in Ser um or PlasmaOrdered By: Charan Casey on 11-26-2023 Sodium [Moles/Vol] 140 mmol/L 136-145 [facility] Triglyceride [Mass/volume] i n Serum or PlasmaOrdered By: Charan Casey on 11-26-2023 Triglyceride [Mass/Vol] 227 mg/dL 0-149 [facility] Comment on above: TRIG ATP III CLASSIF ICATIONTRIG less than 150 mg/dL NormalTRIG 150-199 mg/dL Borderline highTRIG 200-500 mg/dL High TRIG greater than 500 mg/dL Very highStandard traceable to the Center for Disease Conrtrol and Prevention (CDC) test method. Urea nitrogen [Mass/volume] in Serum or PlasmaOrdered By: Charan Casey on 11-26-2023 Urea nitrogen [Mass/Vol] 32 mg/dL 06-23 [facility] Glucose Glucometer (BldC) [M ass/Vol]Ordered By: Yasmeen Treadwell on 10-06-2023 Glucose [Mass/Vol] 150 mg/dL [facility] Comment on above: Random Glucose Refer ence Range is dependent on time and content of last meal. Glucose of more than 200 mg/dL in a nonstressed, ambulatory subject supports the diagnosis of Diabetes Mellitus. Albumin [Mass/volume] in Ser um or Plasma by Bromocresol green (BCG) dye binding methoOrdered By: Elpidio Whipple on 09-14-2023 Albumin BCG dye [Mass/Vol] 4.5 g/dL 3.5-5.7 [facility] Automated erythrocytes count in urine sediment (number/area)Ordered By: Elpidio Whipple on 09-14-2023 RBC Auto (Urine sed) [#/Area] None seen [HPF] 0-4 [facility] Automated leukocytes count i n urine sediment (number/area)Ordered By: Elpidio Whipple on 09-14-2023 WBC Auto (Urine sed) [#/Area] 1-2 [HPF] 0-4 [facility] Bilirubin Test strip Ql (U)O rdered By: Elpidio Whipple on 09-14-2023 Bilirubin Ql (U) Negative Negative [facility] Calcium [Mass/volume] in Ser um or PlasmaOrdered By: Elpidio Whipple on 09-14-2023 Calcium [Mass/Vol] 9.5 mg/dL 8.6-10.3 [facility] [facility] Carbon dioxide, total [Moles /volume] in Serum or PlasmaOrdered By: Elpidio Whipple on 09-14-2023 CO2 [Moles/Vol] 29.7 mmol/L 21.0-31.0 [facility] Chloride [Moles/volume] in S john or PlasmaOrdered By: Elpidio Whipple on 09-14-2023 Chloride [Moles/Vol] 106 mmol/L 98-107 [facility] Color Auto (U)Ordered By: Ab rahul Whipple on 09-14-2023 Color (U) Dark yellow Yellow [facility] Creatinine [Mass/volume] in Serum or PlasmaOrdered By: Elpidio Whipple on 09-14-2023 Creatinine [Mass/Vol] 1.29 mg/dL 0.60-1.20 [facility] Creatinine [Mass/volume] in UrineOrdered By: Elpidio Whipple on 09-14-2023 Creatinine (U) [Mass/Vol] 87.0 mg/dL 11.0-20.0 [facility] Erythrocyte distribution wid th Auto (RBC) [Ratio]Ordered By: Elpidio Whipple on 09-14-2023 Erythrocyte distribution width (RBC) [Ratio] 13.5 % 11.9-15.3 [facility] Glucose [Mass/volume] in Ser um or PlasmaOrdered By: Elpidio Whipple on 09-14-2023 Glucose [Mass/Vol] 97 mg/dL 70-100 [facility] Comment on above: ADA recommended refe rence rangeRandom Glucose Reference Range is dependent on time and content of last meal. Glucose of more than 200 mg/dL in a nonstressed, ambulatory subject supports the diagnosis of Diabetes Mellitus. Hematocrit Auto (Bld) [Volum e fraction]Ordered By: Elpidio Whipple on 09-14-2023 Hematocrit (Bld) [Volume fraction] 42.7 % 34.0-46.4 [facility] Hemoglobin [Mass/volume] in BloodOrdered By: Elpidio Whipple on 09-14-2023 Hemoglobin (Bld) [Mass/Vol] 14.3 g/dL 11.8-15.4 [facility] Ketones Auto test strip (U) [Mass/Vol]Ordered By: Elpidio Whipple on 09-14-2023 Ketones (U) [Mass/Vol] Negative Negative [facility] - UrinalysisOrder ed By: Elpidio Whipple on 09-14-2023 Hyaline casts LM Ql (Urine sed) 0-8 [LPF] 0-8 [facility] Leukocytes [#/volume] correc praneeth for nucleated erythrocytes in Blood by Automated counOrdered By: Elpidio Whipple on 09-14-2023 WBC corrected for nucl RBC Auto (Bld) [#/Vol] 7.7 10*3/uL 3.8-11.6 [facility] MCH Auto (RBC) [Entitic mass ]Ordered By: Elpidio Whipple on 09-14-2023 MCH (RBC) [Entitic mass] 29.1 pg 24.7-34.3 [facility] MCHC Auto (RBC) [Mass/Vol]Or dered By: Elpidio Whipple on 09-14-2023 MCHC (RBC) [Mass/Vol] 33.6 g/dL 32.0-35.0 [facility] MCV Auto (RBC) [Entitic vol] Ordered By: Elpidio Whipple on 09-14-2023 MCV (RBC) [Entitic vol] 86.5 fL 80-100 [facility] Magnesium [Mass/volume] in S john or PlasmaOrdered By: Elpidio Whipple on 09-14-2023 Magnesium [Mass/Vol] 1.9 mg/dL 1.9-2.7 [facility] Nitrite Test strip Ql (U)Ord ered By: Elpidio Whipple on 09-14-2023 Nitrite Ql (U) Negative Negative [facility] No Panel InformationOrdered By: Elpidio Whipple on 09-14-2023 Estimated GFR (CKD-EPI) 46.926 mL/Min [facility] Creatinine Clearance (Chem N/A [facility] Parathyrin.intact [Mass/volu me] in Serum or PlasmaOrdered By: Elpidio Whipple on 09-14-2023 Parathyrin.intact [Mass/Vol] 133.6 pg/mL 12-88 [facility] Phosphate [Mass/volume] in S john or PlasmaOrdered By: Elpidio Whipple on 09-14-2023 Phosphate [Mass/Vol] 3.4 mg/dL 3.7-7.2 [facility] Platelet mean volume Auto (B ld) [Entitic vol]Ordered By: Elpidio Sole on 09-14-2023 Platelet mean volume (Bld) [Entitic vol] 10.0 fL 6.3-10.7 [facility] Platelets Auto (Bld) [#/Vol] Ordered By: Elpidio Sole on 09-14-2023 Platelets (Bld) [#/Vol] 193 10*3/uL 150-450 [facility] Potassium [Moles/volume] in Serum or PlasmaOrdered By: Elpidio Sole on 09-14-2023 Potassium [Moles/Vol] 4.7 mmol/L 3.5-5.1 [facility] Protein Auto test strip (U) [Mass/Vol]Ordered By: Elpidio Whipple on 09-14-2023 Protein (U) [Mass/Vol] Negative Negative [facility] Protein [Mass/volume] in Uri neOrdered By: Elpidio Sole on 09-14-2023 Protein (U) [Mass/Vol] 12 mg/dL 0-9 [facility] RBC Auto (Bld) [#/Vol]Ordere d By: Elpidio Sole on 09-14-2023 RBC (Bld) [#/Vol] 4.93 10*6/uL 3.60-5.00 [facility] Serum or plasma anion gap de terminationOrdered By: Elpidio Sole on 09-14-2023 Anion gap [Moles/Vol] 11.0 mmol/L 6.0-15.0 [facility] Sodium [Moles/volume] in Ser um or PlasmaOrdered By: Elpidio Sole on 09-14-2023 Sodium [Moles/Vol] 142 mmol/L 136-145 [facility] Specific gravity Auto test s trip (U) [Rel density]Ordered By: Elpidio Sole on 09-14-2023 Specific gravity (U) [Rel density] 1.020 1.001-1.030 [facility] Squamous epithelial cells de tection in urine sediment by light microscopyOrdered By: Elpidio Whipple on 09-14-2023 Epithelial cells.squamous LM Ql (Urine sed) 3-4 [HPF] 0-2 [facility] Urate [Mass/volume] in Serum or PlasmaOrdered By: Elpidio Whipple on 09-14-2023 Urate [Mass/Vol] 6.2 mg/dL 2.3-6.6 [facility] Urea nitrogen [Mass/volume] in Serum or PlasmaOrdered By: Elpidio Whipple on 09-14-2023 Urea nitrogen [Mass/Vol] 46 mg/dL 7-25 [facility] Urine bacteria detection by automated methodOrdered By: Elpidio Whipple on 09-14-2023 Bacteria Auto Ql (U) None seen None Seen [facility] Urine clarity by refractomet ry automatedOrdered By: Elpidio Whipple on 09-14-2023 Clarity Refractometry automated (U) Clear Clear [facility] Urine glucose measurement by automated test strip (mass/volume)Ordered By: Elpidio Whipple on 09-14-2023 Glucose Auto test strip (U) [Mass/Vol] Normal mg/dL Normal [facility] Urine hemoglobin detection b y automated test stripOrdered By: Elpidio Whipple on 09-14-2023 Hemoglobin Auto test strip Ql (U) Negative Negative [facility] Urine leukocyte esterase det ection by automated test stripOrdered By: Elpidio Whipple on 09-14-2023 Leukocyte esterase Auto test strip Ql (U) 1+ Negative [facility] Urine protein/creatinine rat ioOrdered By: Elpidio Whipple on 09-14-2023 Protein/Creatinine (U) [Ratio] 138 mg/g{Cre} 0-200 [facility] Urobilinogen Auto test strip (U) [Mass/Vol]Ordered By: Elpidio Whipple on 09-14-2023 Urobilinogen (U) [Mass/Vol] Normal mg/dL Normal [facility] Vitamin D+Metabolites [Mass/ volume] in Serum or PlasmaOrdered By: Elpidio Whipple on 09-14-2023 Vitamin D+Metabolites [Mass/Vol] 50.6 ng/mL 30-100 [facility] Comment on above: VITAMIN D STATUS 25( [place])VITAMIN D RANGE (ng/mL) Deficient <20 Insufficient 20 to <30Sufficient 30 to 100Reference: Nayeli MF,Hannah SCHREIBER, Jose GILBERT, et al. Evaluation,treatment, and prevention of vitamin D deficiency; an Endocrine Society clinical practice guideline. JCEM. 2010; 96(7):1911-30. pH Auto test strip (U)Ordere d By: Elpidio Whipple on 09-14-2023 pH (U) 5.5 [pH] 5.0-9.0 [facility] Urine 10 SGon 05-19-2023 Albumin DL <= 20 mg/L (U) [Mass/Vol] Negative [facility] Other pH (U) 6.0 [pH] [facility] [employer] Other Urine 10 SG Negative [employer] [employer] Other Urine 10 SG 1.010 [employer] [employer] Other Urine 10 SG 0.2 [employer] Other Height or Weight NOT Doneon 04-30-2023 Adult depression screening assessment No [facility] [employer] DO Work Phone: Fall risk assessment a) No falls within the last year [facility] Bib[employer] DO Work Phone: Tobacco use status CP b) No [facility] Biba DO Work Phone: Office Visit (Cardiology)on 04-30-2023 [...] any trouble since her angioplasty. She has Krpvgxq-Instg-Lcodw disease and had recent surgery on the [...] machine patient has been compliant with it. 7?Axfvfiq-Fzvor-Onqba joint in the ankles status post recent [...] TABLET DAILY. Vitamin D (Ergocalciferol) 1.25 MG (74073 UT) Oral CapsuleTake 1 tablet twice weekly Allergies Medication Erythromycin Base TABS Adverse Reaction; Gatrointestinal upset; Updated By: Adrianna Emanuel; (more content not included)... Normal [facility] POINT OF CARE GLUCOSEon 03-30 Glucose [Mass/Vol] 215 mg/dL Critically high 74-106 [facility] Comment on above: Performed By: #### P OCGLUC ####[facility] [address] [address]Dr. Tere Soto PROF CHEM 8 (BAS METB)on Anion gap [Moles/Vol] 9.6 mmol/L Normal [facility] Comment on above: Performed By: #### B MP ####[facility] [address] [address]Dr. Tere Soto Calcium [Mass/Vol] 10.3 mg/dL Critically high 8.5-10.1 [facility] Comment on above: Performed By: #### B MP ####[facility] [address] [place], [place] [address]Dr. Tere Soto Chloride [Moles/Vol] 103 mmol/L Normal 98-107 [facility] Comment on above: Performed By: #### B MP ####[facility] [address] [place], [place] [address]Dr. Tere Soto CO2 [Moles/Vol] 31.0 mmol/L Normal 21.0-32.0 [facility] Comment on above: Performed By: #### B MP ####[facility] [address] [place], [place] [address]Dr. Tere Soto Creatinine [Mass/Vol] 1.48 mg/dL Critically high 0.55-1.02 [facility] Comment on above: Performed By: #### B MP ####[facility] [address] [address]Dr. Tere Soto EGFR-AF NIUEAN 43 mL/min/1.73m2 Critically low >=60 [facility] Comment on above: Performed By: #### B MP ####[facility] [address] [place], [place] [address]Dr. Tere Soto EGFR-NON AF NIUEAN 36 mL/min/1.73m2 Critically low >=60 [facility] Comment on above: Performed By: #### B MP ####[facility] [address] [place], [place] [address]Fx. Tere Soto Glucose [Mass/Vol] 173 mg/dL Critically high 74-106 [facility] Comment on above: Performed By: #### B MP ####[facility] [address] [place], [place] [address]Ie. Tere Soto Potassium [Moles/Vol] 4.6 mmol/L Normal 3.5-5.1 [facility] Comment on above: Performed By: #### B MP ####[facility] [address] [place], [place] [address]Eb. Tere Soto Sodium [Moles/Vol] 139 mmol/L Normal 136-145 [facility] Comment on above: Performed By: #### B MP ####[facility] [address] [place], [place] [address]As. Tere Soto Urea nitrogen [Mass/Vol] 63.0 mg/dL Critically high 7.0-18.0 [facility] Comment on above: Performed By: #### B MP ####[facility] [address] [place], [place] [address]Vq. Tere Soto Urea nitrogen/Creatinine [Mass ratio] 42.6 mg/mg Normal [facility] Comment on above: Performed By: #### B MP ####[facility] [address] [place], [place] [address]G[address] FOOT LT WO CONon 03-23-20 [...] by: BLANKA OLGUIN Date: 2023-03-23 14:59 Normal [facility] Albumin [Mass/volume] in Ser um or Plasma by Bromocresol green (BCG) dye binding methoOrdered By: Elpidio Whipple on 03-06-2023 Albumin BCG dye [Mass/Vol] 4.7 g/dL 3.5-5.7 [facility] Automated erythrocytes count in urine sediment (number/area)Ordered By: Elpidio Whpiple on 03-06-2023 RBC Auto (Urine sed) [#/Area] None seen [HPF] 0-4 [facility] Automated leukocytes count i n urine sediment (number/area)Ordered By: Elpidio Whipple on 03-06-2023 WBC Auto (Urine sed) [#/Area] 5-9 [HPF] 0-4 [facility] Bilirubin Test strip Ql (U)O rdered By: Elpidio Whipple on 03-06-2023 Bilirubin Ql (U) Negative Negative [facility] Calcium [Mass/volume] in Ser um or PlasmaOrdered By: Elpidio Whipple on 03-06-2023 Calcium [Mass/Vol] 10.2 mg/dL 8.6-10.3 [facility] Carbon dioxide, total [Moles /volume] in Serum or PlasmaOrdered By: Elpidio Whipple on 03-06-2023 CO2 [Moles/Vol] 28.4 mmol/L 21.0-31.0 [facility] Chloride [Moles/volume] in S john or PlasmaOrdered By: Elpidio Whipple on 03-06-2023 Chloride [Moles/Vol] 104 mmol/L 98-107 [facility] Color Auto (U)Ordered By: Ab rahul Whipple on 03-06-2023 Color (U) Dark yellow Yellow [facility] Creatinine [Mass/volume] in Serum or PlasmaOrdered By: Elpidio Whipple on 03-06-2023 Creatinine [Mass/Vol] 1.22 mg/dL 0.60-1.20 [facility] Creatinine [Mass/volume] in UrineOrdered By: Elpidio Whipple on 03-06-2023 Creatinine (U) [Mass/Vol] 98.0 mg/dL [facility] Comment on above: No reference range e stablished Erythrocyte distribution wid th Auto (RBC) [Ratio]Ordered By: Elpidio Whipple on 03-06-2023 Erythrocyte distribution width (RBC) [Ratio] 13.8 % 11.9-15.3 [facility] Glucose [Mass/volume] in Ser um or PlasmaOrdered By: Elpidio Whipple on 03-06-2023 Glucose [Mass/Vol] 101 mg/dL 70-100 [facility] Comment on above: ADA recommended refe rence rangeRandom Glucose Reference Range is dependent on time and content of last meal. Glucose of more than 200 mg/dL in a nonstressed, ambulatory subject supports the diagnosis of Diabetes Mellitus. Hematocrit Auto (Bld) [Volum e fraction]Ordered By: Elpidio Whipple on 03-06-2023 Hematocrit (Bld) [Volume fraction] 38.1 % 34.0-46.4 [facility] Hemoglobin [Mass/volume] in BloodOrdered By: Elpidio Whipple on 03-06-2023 Hemoglobin (Bld) [Mass/Vol] 12.7 g/dL 11.8-15.4 [facility] Ketones Auto test strip (U) [Mass/Vol]Ordered By: Elpidio Whipple on 03-06-2023 Ketones (U) [Mass/Vol] Negative Negative [facility] - UrinalysisOrder ed By: Elpidio Whipple on 03-06-2023 Hyaline casts LM Ql (Urine sed) 0-8 [LPF] 0-8 [facility] Leukocytes [#/volume] correc praneeth for nucleated erythrocytes in Blood by Automated counOrdered By: Elpidio Whipple on 04-07-2023 WBC corrected for nucl RBC Auto (Bld) [#/Vol] 5.4 10*3/uL 3.8-11.6 [facility] MCH Auto (RBC) [Entitic mass ]Ordered By: Elpidio Whipple on 03-06-2023 MCH (RBC) [Entitic mass] 28.1 pg 24.7-34.3 [facility] MCHC Auto (RBC) [Mass/Vol]Or dered By: Elpidio Whipple on 03-06-2023 MCHC (RBC) [Mass/Vol] 33.3 g/dL 32.0-35.0 [facility] MCV Auto (RBC) [Entitic vol] Ordered By: Elpidio Whipple on 03-06-2023 MCV (RBC) [Entitic vol] 84.5 fL 80-100 [facility] Magnesium [Mass/volume] in S john or PlasmaOrdered By: Elpidio Whipple on 03-06-2023 Magnesium [Mass/Vol] 1.5 mg/dL 1.9-2.7 [facility] Nitrite Test strip Ql (U)Ord ered By: Elpidio Whipple on 03-06-2023 Nitrite Ql (U) Negative Negative [facility] No Panel InformationOrdered By: Elpidio Whipple on 03-06-2023 Estimated GFR (CKD-EPI) 50.176 mL/Min [facility] Creatinine Clearance (Chem N/A [facility] Parathyrin.intact [Mass/volu me] in Serum or PlasmaOrdered By: Elpidio Whipple on 03-06-2023 Parathyrin.intact [Mass/Vol] 43.8 pg/mL 12-88 [facility] Phosphate [Mass/volume] in S john or PlasmaOrdered By: Elpidio Whipple on 03-06-2023 Phosphate [Mass/Vol] 4.3 mg/dL 3.7-7.2 [facility] Platelet mean volume Auto (B ld) [Entitic vol]Ordered By: Elpidio Whipple on 03-06-2023 Platelet mean volume (Bld) [Entitic vol] 8.7 fL 6.3-10.7 [facility] Platelets Auto (Bld) [#/Vol] Ordered By: Elpidio Whipple on 03-06-2023 Platelets (Bld) [#/Vol] 191 10*3/uL 150-450 [facility] Potassium [Moles/volume] in Serum or PlasmaOrdered By: Elpidio Sole on 03-06-2023 Potassium [Moles/Vol] 4.0 mmol/L 3.5-5.1 [facility] Protein Auto test strip (U) [Mass/Vol]Ordered By: Elpidio Sole on 03-06-2023 Protein (U) [Mass/Vol] Negative Negative [facility] Protein [Mass/volume] in Uri neOrdered By: Elpidio Sole on 03-06-2023 Protein (U) [Mass/Vol] 8 mg/dL 0-9 [facility] RBC Auto (Bld) [#/Vol]Ordere d By: Elpidio Zarater on 03-06-2023 RBC (Bld) [#/Vol] 4.51 10*6/uL 3.60-5.00 [facility] Serum or plasma anion gap de terminationOrdered By: Elpidio Soel on 03-06-2023 Anion gap [Moles/Vol] 12.6 mmol/L 6.0-15.0 [facility] Sodium [Moles/volume] in Ser um or PlasmaOrdered By: Elpidio Sole on 03-06-2023 Sodium [Moles/Vol] 141 mmol/L 136-145 [facility] Specific gravity Auto test s trip (U) [Rel density]Ordered By: Elpidio Whipple on 03-06-2023 Specific gravity (U) [Rel density] 1.017 1.001-1.030 [facility] Squamous epithelial cells de tection in urine sediment by light microscopyOrdered By: Elpidio Zarater on 03-06-2023 Epithelial cells.squamous LM Ql (Urine sed) 5-9 [HPF] 0-2 [facility] Urate [Mass/volume] in Serum or PlasmaOrdered By: Elpidio Sole on 03-06-2023 Urate [Mass/Vol] 6.7 mg/dL 2.3-6.6 [facility] Urea nitrogen [Mass/volume] in Serum or PlasmaOrdered By: Elpidio Whipple on 03-06-2023 Urea nitrogen [Mass/Vol] 37 mg/dL 7-25 [facility] Urine bacteria detection by automated methodOrdered By: Elpidio Whipple on 03-06-2023 Bacteria Auto Ql (U) None seen None Seen [facility] Urine clarity by refractomet ry automatedOrdered By: Elpidio Whipple on 03-06-2023 Clarity Refractometry automated (U) Clear Clear [facility] Urine culture routineOrdered By: Elpidio Whipple on 03-06-2023 Bacteria identified Cx Nom (U) 2 Days [facility] Urine glucose measurement by automated test strip (mass/volume)Ordered By: Elpidio Whipple on 03-06-2023 Glucose Auto test strip (U) [Mass/Vol] Normal mg/dL Normal [facility] Urine hemoglobin detection b y automated test stripOrdered By: Elpidio Whipple on 03-06-2023 Hemoglobin Auto test strip Ql (U) Negative Negative [facility] Urine leukocyte esterase det ection by automated test stripOrdered By: Elpidio Whipple on 03-06-2023 Leukocyte esterase Auto test strip Ql (U) 2+ Negative [facility] Urine protein/creatinine rat ioOrdered By: Elpidio Whipple on 03-06-2023 Protein/Creatinine (U) [Ratio] 82 mg/g{Cre} 0-200 [facility] Urobilinogen Auto test strip (U) [Mass/Vol]Ordered By: Elpidio Whipple on 03-06-2023 Urobilinogen (U) [Mass/Vol] Normal mg/dL Normal [facility] Vitamin D+Metabolites [Mass/ volume] in Serum or PlasmaOrdered By: Elpidio Whipple on 03-06-2023 Vitamin D+Metabolites [Mass/Vol] 46.0 ng/mL 30-100 [facility] Comment on above: VITAMIN D STATUS 25( [place])VITAMIN D RANGE (ng/mL) Deficient <20 Insufficient 20 to <30Sufficient 30 to 100Reference: Nayeli MF,Hannah NC, Jose GILBERT, et al. Evaluation,treatment, and prevention of vitamin D deficiency; an Endocrine Society clinical practice guideline. JCEM. 2010; 96(7):1911-30. pH Auto test strip (U)Ordere d By: Elpidio Whipple on 03-06-2023 pH (U) 5.5 [pH] 5.0-9.0 [facility] XR FOOT LAURA MIN 3 VIEWSon XR [...] and postsurgical changes Electronically authenticated by: BRODERICK FLOR Date: 2023-02-17 14:34 Normal [facility] CBC AUTO DIFFon 12-23-2022 BASO # 0.0 103/ul Normal 0.0-0.1 [facility] Comment on above: Performed By: #### C BC #### [facility] [address] [address] [address] Tere Soto Basophils/100 WBC (Bld) 0.6 % Normal 0.2-2.0 [facility] Comment on above: Performed By: #### C BC #### [facility] [address] [address] [address] Tere Soto EO # 0.1 103/ul Normal 0.0-0.7 [facility] Comment on above: Performed By: #### C BC #### [facility] [address] [place] [address] Dr. Tere Soto Eosinophils/100 WBC (Bld) 2.9 % Normal 0.9-7.0 [facility] Comment on above: Performed By: #### C BC #### [facility] [address] [place] [address] Dr. Tere Soto Erythrocyte distribution width (RBC) [Ratio] 13.2 % Normal 11.0-15.0 [facility] Comment on above: Performed By: #### C BC #### [facility] [address] [place] [address] Dr. Tere Soto Hematocrit (Bld) [Volume fraction] 39.0 % Normal 36.0-48.0 [facility] Comment on above: Performed By: #### C BC #### [facility] [address] [place] [address] Dr. Tere Soto Hemoglobin (Bld) [Mass/Vol] 13.0 g/dL Normal 12.0-16.0 [facility] Comment on above: Performed By: #### C BC #### [facility] [address] [place] [address] Dr. Tere Soto IG # 0.01 10e3/ul Normal 0.00-0.03 [facility] Comment on above: Performed By: #### C BC #### [facility] [address] [place] [address] Dr. Tere Soto IG % 0.2 % Normal 0.0-0.5 [facility] Comment on above: Performed By: #### C BC #### [facility] [address] [place] [address] Dr. Tere Soto LYMPH # 2.1 103/ul Normal 1.2-3.8 [facility] Comment on above: Performed By: #### C BC #### [facility] [address] [place] [address] Dr. Tere Soto Lymphocytes/100 WBC (Bld) 42.6 % Normal 20.5-60.0 [facility] Comment on above: Performed By: #### C BC #### [facility] [address] [place] [address] Dr. Tere Soto MANUAL DIFF REQ NO Normal [facility] Comment on above: Performed By: #### C BC #### [facility] [address] [place] [address] Dr. Tere Soto MCH (RBC) [Entitic mass] 28.4 pg Normal 26.7-34.0 [facility] Comment on above: Performed By: #### C BC #### [facility] [address] [place] [address] Dr. Tere Soto MCHC (RBC) [Mass/Vol] 33.3 g/dL Normal 29.9-35.2 [facility] Comment on above: Performed By: #### C BC #### [facility] [address] [place] [address] Dr. Tere Soto MCV (RBC) [Entitic vol] 85.2 fL Normal 81.0-99.0 [facility] Comment on above: Performed By: #### C BC #### [facility] [address] [place] [address] Dr. Tere Soto MONO # 0.3 103/ul Normal 0.3-0.8 [facility] Comment on above: Performed By: #### C BC #### [facility] [address] [place] [address] Dr. Tere Soto Monocytes/100 WBC (Bld) 6.8 % Normal 1.7-12.0 [facility] Comment on above: Performed By: #### C BC #### [facility] [address] [place] [address] Dr. Tere Soto NEUT # 2.3 103/ul Normal 1.4-6.5 [facility] Comment on above: Performed By: #### C BC #### [facility] [address] [place] [address] Dr. Tere Soto Neutrophils/100 WBC (Bld) 46.9 % Normal 43.0-75.0 [facility] Comment on above: Performed By: #### C BC #### [facility] [address] [place] [address] Dr. Tere Soto Platelet mean volume (Bld) [Entitic vol] 11.3 fL Normal 9.5-13.5 [facility] Comment on above: Performed By: #### C BC #### [facility] [address] [address] [address] Tere Soto PLT 183 103/ul Normal 150-450 [facility] Comment on above: Performed By: #### C BC #### [facility] [address] [address] [address] Tree Soto RBC 4.58 106/ul Normal 4.20-5.40 [facility] Comment on above: Performed By: #### C BC #### [facility] [address] [place] [address] Dr. Tere Soto WBC 4.8 103/ul Normal 4.0-11.0 [facility] Comment on above: Performed By: #### C BC #### [facility] [address] [place] [address] Dr. Tere Soto Cov[facility]19 [facility]01 SARS-CoV-2 (COVID-19) RNA AHMET+probe Ql (Unsp spec) Not detected Normal NOT DETECTED [facility] Comment on above: Result Comment: This test is not yet approved or cleared by the [place] FDA. When there are no FDA-approved or cleared tests available, and other criteria are met, FDA can make tests available under an emergency access mechanism called an Emergency Use Authorization (EUA). The EUA for this test is supported by the [place] of Health and Human Service's (HHS's) declaration [...] consistent with SARS-CoV-2. Performed By: #### C VDTB #### [facility] [address] [place] [address] Dr. Tere Soto PROF CHEM 8 (BAS METB)on Anion gap [Moles/Vol] 13.6 mmol/L Normal [facility] Comment on above: Performed By: #### B MP #### [facility] [address] [place] [address] Dr. Tere Soto Calcium [Mass/Vol] 9.6 mg/dL Normal 8.5-10.1 [facility] Comment on above: Performed By: #### B MP #### [facility] [address] [place] [address] Dr. Tere Soto Chloride [Moles/Vol] 103 mmol/L Normal 98-107 [facility] Comment on above: Performed By: #### B MP #### [facility] [address] [place] [address] Dr. Tere Soto CO2 [Moles/Vol] 28.9 mmol/L Normal 21.0-32.0 [facility] Comment on above: Performed By: #### B MP #### [facility] [address] [place] [address] Dr. Tere Soto Creatinine [Mass/Vol] 1.25 mg/dL Critically high 0.55-1.02 [facility] Comment on above: Performed By: #### B MP #### [facility] [address] [place] [address] Dr. Tere Soto EGFR-AF NIUEAN 53 mL/min/1.73m2 Critically low >=60 [facility] Comment on above: Performed By: #### B MP #### [facility] [address] [place] [address] Dr. Tere Soto EGFR-NON AF NIUEAN 43 mL/min/1.73m2 Critically low >=60 [facility] Comment on above: Performed By: #### B MP #### [facility] [address] [place] [address] Dr. Tere Soto Glucose [Mass/Vol] 121 mg/dL Critically high 74-106 [facility] Comment on above: Performed By: #### B MP #### [facility] [address] [address] [address] Tere Soto Potassium [Moles/Vol] 4.5 mmol/L Normal 3.5-5.1 [facility] Comment on above: Performed By: #### B MP #### [facility] [address] [address] [address] Tere Soto Sodium [Moles/Vol] 141 mmol/L Normal 136-145 [facility] Comment on above: Performed By: #### B MP #### [facility] [address] [address] [address] Tere Soto Urea nitrogen [Mass/Vol] 43.0 mg/dL Critically high 7.0-18.0 [facility] Comment on above: Performed By: #### B MP #### [facility] [address] [address] [address] Tere Soto Urea nitrogen/Creatinine [Mass ratio] 34.4 mg/mg Normal [facility] Comment on above: Performed By: #### B MP #### [facility] [address] [address] [address] Tere Soto PROTIMEon 12-23-2022 INR Coag (PPP) [Relative time] {INR} Normal [facility] Comment on above: Performed By: #### P T, PTT ####[facility] [id number] [address]Dr. Tere Soto INR GUIDELINES SEE BELOW Normal [facility] Comment on above: Result Comment: RUBEN RED INR: 2.0 - 3.0 CONDITIONS NOT LISTED BELOW 2.5 - 3.5 FOR PROSTHETIC HEART VALVE REPLACEMENT 2.5 - 3.5 RECURRENT THROMBOSIS Performed By: #### P T, PTT ####[facility] [id number] [id number]. Tere Soto PT Coag (PPP) [Time] 9.8 s Normal 9.0-11.6 [facility] Comment on above: Performed By: #### P T, PTT ####[facility] [id number] [place], [place] [address]YgDerek Soto PTTon 12-23-2022 aPTT Coag (Bld) [Time] 26.5 s Normal 22.3-36.2 Th [facility] Comment on above: Performed By: #### P T, PTT ####[facility] [id number] [place], [place] [address] FOOT LT WO CONon 11-26-20 [...] by: BRODERICK FLOR Date: 2022-11-26 16:36 Normal [facility] XR ANKLE LAURA MIN 3 VIEWSon 1 [...] by: BLANKA OLGUIN Date: 2022-11-13 06:32 Normal [facility] Office Visit (Cardiology)on 11-12-2022 Follow-up visit [...] 36.0 to 36.9 in adult (278.00,V85.36) (E66.9,Z68.36) Uhnpfqo-Mqllc-Kkdbe disease (356.1) (G60.0) Orders CAD (coronary artery [...] Aminotransferase, Serum; Status:Active - Retrospective Authorization; Requested for:[id number] 09:18AM; AST; Status:Active - Retrospective Authorization; Requested for:10Feb2023 09:18AM; Lipid Panel; Status:Active - Retrospective Authorization; Requested for:[id number] 09:18AM; Class 2 obesity with body mass index (BMI) of 36.0 to 36.9 in adult Healthy Weight Tips; Status:Complete - Retrospective Authorization; Done: [id number] Some eating tips that can help you lose weight.; Status:Complete - Retrospective Authorization; Done: [id number] SocHx: Never a smoker Tobacco Use Screening; Status:Complete; Done: [id number] Patient Instructions Please bring all medicines, vitamins, [...] Since her last visit she has developed Trmktsq-Gxtwq-Hrmrh joint in the left foot and is [...] machine patient has been compliant with it. 7?Lbrdwum-Mksrb-Gjbam joint in the left ankle and need [...] Methicillin resistant Staph aureus not isolated Normal [facility] Hgb A1Con 10-08-2022 HbA1c (Bld) [Mass fraction] 7.1 % High 4.0-5.6 [facility] Sedimentation Rateon Sedimentation Rate 44 mm/Hr High 0-20 [facility] C-Reactive Proteinon 022 C-Reactive Protein 0.4 mg/dL Normal 0.0-0.4 [facility] CBC With Platelet and Differ entialon 10-07-2022 Abs Imm Granulocytes 0.01 E9/L Normal [facility] Absolute Basophils 0.05 E9/L Normal 0.00-0.20 [facility] Absolute Eosinophils 0.15 E9/L Normal 0.05-0.50 [facility] Absolute Lymphocytes 2.20 E9/L Normal 1.50-4.00 [facility] Absolute Monocytes 0.35 E9/L Normal 0.10-0.95 [facility] Absolute Neutrophils 1.88 E9/L Normal 1.80-7.30 [facility] Basophils/100 WBC (Bld) 1.1 % Normal 0.0-2.0 [facility] Eosinophils/100 WBC (Bld) 3.2 % Normal 0.0-6.0 [facility] Hematocrit (Bld) [Volume fraction] 36.9 % Normal 34.0-48.0 [facility] Hemoglobin (Bld) [Mass/Vol] 12.4 g/dL Normal 11.5-15.5 [facility] Imm Granulocytes 0.2 % Normal 0.0-5.0 [facility] Lymphocytes/100 WBC (Bld) 47.4 % High 20.0-42.0 [facility] MCH (RBC) [Entitic mass] 29.7 pg Normal 26.0-35.0 [facility] MCHC 33.6 % Normal 32.0-34.5 [facility] MCV (RBC) [Entitic vol] 88.3 fL Normal 80.0-99.9 [facility] Monocytes/100 WBC (Bld) 7.5 % Normal 2.0-12.0 [facility] Neutrophils/100 WBC (Bld) 40.6 % Low 43.0-80.0 [facility] Platelet Count 208 E9/L Normal 130-450 [facility] Platelet mean volume (Bld) [Entitic vol] 11.7 fL Normal 7.0-12.0 [facility] RBC 4.18 E12/L Normal 3.50-5.50 [facility] RDW 13.3 fL Normal 11.5-15.0 [facility] WBC 4.6 E9/L Normal 4.5-11.5 [facility] Comprehensive Metabolic Pane alma 10-07-2022 Albumin [Mass/Vol] 4.3 g/dL Normal 3.5-5.2 [facility] ALP [Catalytic activity/Vol] 71 U/L Normal 35-104 [facility] ALT [Catalytic activity/Vol] 12 U/L Normal 0-32 [facility] Anion gap [Moles/Vol] 10 mmol/L Normal 7-16 [facility] AST [Catalytic activity/Vol] 19 U/L Normal 0-31 [facility] Bilirubin [Mass/Vol] 0.3 mg/dL Normal 0.0-1.2 [facility] Calcium [Mass/Vol] 10.3 mg/dL High 8.6-10.2 [facility] Chloride [Moles/Vol] 103 mmol/L Normal 98-107 [facility] CO2 [Moles/Vol] 27 mmol/L Normal 22-29 [facility] Creatinine [Mass/Vol] 1.2 mg/dL High 0.5-1.0 [facility] GFR/1.73 sq M.predicted among non-blacks MDRD (S/P/Bld) [Vol rate/Area] 51 mL/min/{1.73_m2} Normal >=60 [facility] Comment on above: Result Comment: Clifford atric [...] secretion. Glucose [Mass/Vol] 111 mg/dL High 74-99 [facility] Potassium [Moles/Vol] 4.6 mmol/L Normal 3.5-5.0 [facility] Protein [Mass/Vol] 7.3 g/dL Normal 6.4-8.3 [facility] Sodium [Moles/Vol] 140 mmol/L Normal 132-146 [facility] Urea nitrogen [Mass/Vol] 30 mg/dL High 6-23 [facility] Albumin [Mass/volume] in Ser um or PlasmaOrdered By: Charan Casey on 08-13-2022 Albumin [Mass/Vol] 3.9 g/dL 3.2-5.5 [facility] Automated erythrocytes count in urine sediment (number/area)Ordered By: Elpidio Whipple on 08-13-2022 RBC Auto (Urine sed) [#/Area] 0-1 [HPF] 0-4 [facility] Automated leukocytes count i n urine sediment (number/area)Ordered By: Elpidio Whipple on 08-13-2022 WBC Auto (Urine sed) [#/Area] None seen [HPF] 0-4 [facility] Basophils Auto (Bld) [#/Vol] Ordered By: Charan Casey on 08-13-2022 Basophils (Bld) [#/Vol] 0.1 10*3/uL 0.0-0.2 [facility] Basophils/100 WBC Auto (Bld) Ordered By: Charan Casey on 08-13-2022 Basophils/100 WBC (Bld) 1.0 % . [facility] Bilirubin Test strip Ql (U)O rdered By: Elpidio Whipple on 08-13-2022 Bilirubin Ql (U) Negative Negative [facility] Cholesterol [Mass/volume] in Serum or PlasmaOrdered By: Charan Casey on 08-13-2022 Cholesterol [Mass/Vol] 170 mg/dL 140-200 [facility] Comment on above: Chol less than 200 m g/dl low riskChol 201-239 mg/dl borderline riskChol 240 mg/dl and greater high risk Cholesterol in LDL Calc [Mas s/Vol]Ordered By: Charan Casey on 08-13-2022 Cholesterol in LDL [Mass/Vol] 101 mg/dL 0-100 [facility] Comment on above: LDL ATP III CLASSIFI CATIONLDL less than 100 mg/dL OptimalLDL 100-129 mg/dL Near or above optimalLDL 130-159 mg/dL Borderline highLDL 160-189 mg/dL HighLDL greater than 189 mg/dL Very high Cholesterol in VLDL Calc [Ma ss/Vol]Ordered By: Charan Casey on 08-13-2022 Cholesterol in VLDL [Mass/Vol] 41 mg/dL [facility] Color Auto (U)Ordered By: Ab rahul Whipple on 08-13-2022 Color (U) Dark yellow Yellow [facility] Creatinine [Mass/volume] in UrineOrdered By: Elpidio Whipple on 08-13-2022 Creatinine (U) [Mass/Vol] 127.6 mg/dL [facility] Comment on above: No reference range e stablished Creatinine and Glomerular fi ltration rate.predicted panel (S/P/Bld)Ordered By: Charan Casey on 08-13-2022 Creatinine [Mass/Vol] 1.41 mg/dL 0.44-1.03 [facility] Eosinophils Auto (Bld) [#/Vo l]Ordered By: Charan Casey on 08-13-2022 Eosinophils (Bld) [#/Vol] 0.1 10*3/uL 0.0-0.45 [facility] Eosinophils/100 WBC Auto (Bl d)Ordered By: Charan Casey on 08-13-2022 Eosinophils/100 WBC (Bld) 1.7 % . [facility] Erythrocyte distribution wid th Auto (RBC) [Ratio]Ordered By: Charan Casey on 08-13-2022 Erythrocyte distribution width (RBC) [Ratio] 13.1 % 11.9-15.3 [facility] Estimated glomerular filtrat ion rate (GFR) non- AmericanOrdered By: Charan Casey on 08-13-2022 GFR/1.73 sq M.predicted among non-blacks MDRD (S/P/Bld) [Vol rate/Area] 38 mL/Min [facility] Globulin Calc (S) [Mass/Vol] Ordered By: Charan Casey on 08-13-2022 Globulin (S) [Mass/Vol] 3.1 g/dL [facility] Hematocrit Auto (Bld) [Volum e fraction]Ordered By: Charan Casey on 08-13-2022 Hematocrit (Bld) [Volume fraction] 38.0 % 34.0-46.4 [facility] Hemoglobin [Mass/volume] in BloodOrdered By: Charan Casey on 08-13-2022 Hemoglobin (Bld) [Mass/Vol] 12.6 g/dL 11.8-15.4 [facility] Ketones Auto test strip (U) [Mass/Vol]Ordered By: Elpidio Whipple on 08-13-2022 Ketones (U) [Mass/Vol] Negative Negative Fi [facility] - Chemistry and C hemistry - challengeOrdered By: Elpidio Whipple on 08-13-2022 Magnesium [Mass/Vol] 1.9 mg/dL 1.6-2.6 [facility] - Hematology and Cell countsOrdered By: Charan Casey on 08-13-2022 Nucleated RBC/100 WBC (Bld) [Ratio] 0.0 % 0-0.5 [facility] - UrinalysisOrder ed By: Elpidio Whipple on 08-13-2022 Hyaline casts LM Ql (Urine sed) 0-8 [LPF] 0-8 [facility] Leukocytes [#/volume] in Blo od by Automated countOrdered By: Charan Casey on 08-13-2022 WBC (Bld) [#/Vol] 8.2 10*3/uL 4.5-11.0 [facility] Lymphocytes Auto (Bld) [#/Vo l]Ordered By: Charan Casey on 08-13-2022 Lymphocytes (Bld) [#/Vol] 2.8 10*3/uL 1.00-4.8 [facility] Lymphocytes/100 WBC Auto (Bl d)Ordered By: Charan Casey on 08-13-2022 Lymphocytes/100 WBC (Bld) 34.1 % . [facility] MCH Auto (RBC) [Entitic mass ]Ordered By: Charan Casey on 08-13-2022 MCH (RBC) [Entitic mass] 28.5 pg 24.7-34.3 [facility] MCHC Auto (RBC) [Mass/Vol]Or dered By: Charan Casey on 08-13-2022 MCHC (RBC) [Mass/Vol] 33.2 g/dL 32.0-35.0 [facility] MCV Auto (RBC) [Entitic vol] Ordered By: Charan Casey on 08-13-2022 MCV (RBC) [Entitic vol] 85.8 fL 80-100 [facility] Monocytes Auto (Bld) [#/Vol] Ordered By: Charan Casey on 08-13-2022 Monocytes (Bld) [#/Vol] 0.5 10*3/uL 0.0-0.8 [facility] Monocytes/100 WBC Auto (Bld) Ordered By: Charan Casey on 08-13-2022 Monocytes/100 WBC (Bld) 6.4 % . [facility] Neutrophils Auto (Bld) [#/Vo l]Ordered By: Charan Casey on 08-13-2022 Neutrophils (Bld) [#/Vol] 4.7 10*3/uL 1.8-7.7 [facility] Neutrophils/100 WBC Auto (Bl d)Ordered By: Charan Casey on 08-13-2022 Neutrophils/100 WBC (Bld) 56.8 % . [facility] Nitrite Test strip Ql (U)Ord ered By: Elpidio Whipple on 08-13-2022 Nitrite Ql (U) Negative Negative [facility] No Panel InformationOrdered By: Charan Casey on 08-13-2022 25-Hydroxy Vitamin D Total 37.8 ng/mL 30-100 [facility] Comment on above: VITAMIN D STATUS 25( [place])VITAMIN D RANGE (ng/mL) Deficient <20 Insufficient 20 to <30Sufficient 30 to 100Reference: Nayeli MF,Hannah NC, Jose GILBERT, et al. Evaluation,treatment, and prevention of vitamin D deficiency; an Endocrine Society clinical practice guideline. JCEM. 2010; 96(7):1911-30. Estimated GFR () 46 mL/Min [facility] Comment on above: GFR estimated refere nce range: According to KDOQI guidelines, <60 ml/min/1.73m2 is sufficient to diagnose a patient with chronic kidney disease. Pharmacy Creatinine Clearance (Chem N/A [facility] Platelet mean volume Auto (B ld) [Entitic vol]Ordered By: Charan Casey on 08-13-2022 Platelet mean volume (Bld) [Entitic vol] 9.2 fL 6.3-10.7 [facility] Platelets Auto (Bld) [#/Vol] Ordered By: Charan Casey on 08-13-2022 Platelets (Bld) [#/Vol] 272 10*3/uL 150-450 [facility] Protein Auto test strip (U) [Mass/Vol]Ordered By: Elpidio Whipple on 08-13-2022 Protein (U) [Mass/Vol] Negative Negative Fi [facility] Protein [Mass/volume] in Ser um or PlasmaOrdered By: Charan Casey on 08-13-2022 Protein [Mass/Vol] 7.0 g/dL 6.1-7.9 [facility] Protein [Mass/volume] in Uri neOrdered By: Elpidio Whipple on 08-13-2022 Protein (U) [Mass/Vol] 7 mg/dL 0-9 [facility] RBC Auto (Bld) [#/Vol]Ordere d By: Charan Casey on 08-13-2022 RBC (Bld) [#/Vol] 4.43 10*6/uL 3.60-5.00 [facility] Serum or plasma alanine stanton otransferase measurement without P-5'-P (enzymatic activiOrdered By: Charan Casey on 08-13-2022 ALT No additional P-5'-P [Catalytic activity/Vol] 12 U/L 10-60 [facility] Serum or plasma albumin/glob ulin mass ratioOrdered By: Charan Casey on 08-13-2022 Albumin/Globulin [Mass ratio] 1.3 {ratio} [facility] Serum or plasma alkaline do sphatase measurement (enzymatic activity/volume)Ordered By: Charan Casey on 08-13-2022 ALP [Catalytic activity/Vol] 79 U/L 32-92 [facility] Serum or plasma anion gap de terminationOrdered By: Charan Casey on 08-13-2022 Anion gap [Moles/Vol] 15.4 mmol/L 6.0-15.0 [facility] Serum or plasma aspartate am inotransferase measurement (enzymatic activity/volume)Ordered By: Charan Casey on 08-13-2022 AST [Catalytic activity/Vol] 22 U/L 10-42 [facility] Serum or plasma calcium gautam urement (mass/volume)Ordered By: Charan Casey on 08-13-2022 Calcium [Mass/Vol] 10.1 mg/dL 8.2-10.2 [facility] Serum or plasma chloride malika surement (moles/volume)Ordered By: Charan Casey on 08-13-2022 Chloride [Moles/Vol] 102 mmol/L 95-114 [facility] Serum or plasma glucose gautam urement (mass/volume)Ordered By: Charan Casey on 08-13-2022 Glucose [Mass/Vol] 114 mg/dL 70-100 [facility] Comment on above: ADA recommended refe rence rangeRandom Glucose Reference Range is dependent on time and content of last meal. Glucose of more than 200 mg/dL in a nonstressed, ambulatory subject supports the diagnosis of Diabetes Mellitus. Serum or plasma high density lipoprotein (HDL) cholesterol measurementOrdered By: Charan Casey on 08-13-2022 Cholesterol in HDL [Mass/Vol] 28 mg/dL 35-85 [facility] Comment on above: HDL CHOL ATP-III CLA SSIFICATION Cardiovascular RiskHDL > or equal to 60 mg/dL LOWHDL < 40 mg/dL HIGH Serum or plasma intact parat hyroid hormone measurement (mass/volume)Ordered By: Elpidio Whipple on 08-13-2022 Parathyrin.intact [Mass/Vol] 87.0 pg/mL 12 [facility] Serum or plasma potassium me asurement (moles/volume)Ordered By: Charan Casey on 08-13-2022 Potassium [Moles/Vol] 4.9 mmol/L 3.5-5.1 [facility] Serum or plasma sodium measu rement (moles/volume)Ordered By: Charan Casey on 08-13-2022 Sodium [Moles/Vol] 138 mmol/L 136-146 [facility] Serum or plasma total biliru bin measurement (mass/volume)Ordered By: Charan Casey on 08-13-2022 Bilirubin [Mass/Vol] 0.4 mg/dL 0.3-1.2 [facility] Serum or plasma total carbon dioxide measurement (moles/volume)Ordered By: Charan Casey on 08-13-2022 CO2 [Moles/Vol] 25.5 mmol/L 22.0-30.0 [facility] Serum or plasma total choles terol/high density lipoprotein (HDL) cholesterol mass ratOrdered By: Charan Casey on 08-13-2022 Cholesterol.total/Mary sterol in HDL [Mass ratio] 6.1 {ratio} <5.0 [facility] Serum or plasma urea nitroge n measurement (mass/volume)Ordered By: Charan Casey on 08-13-2022 Urea nitrogen [Mass/Vol] 45 mg/dL 08-22 [facility] Serum or plasma uric acid me asurement (mass/volume)Ordered By: Charan Casey on 08-13-2022 Urate [Mass/Vol] 7.9 mg/dL 2.6-7.2 [facility] Specific gravity Auto test s trip (U) [Rel density]Ordered By: Elpidio Whipple on 08-13-2022 Specific gravity (U) [Rel density] 1.020 1.001-1.030 [facility] Squamous epithelial cells de tection in urine sediment by light microscopyOrdered By: Elpidio Whipple on 08-13-2022 Epithelial cells.squamous LM Ql (Urine sed) 0-1 [HPF] 0-2 [facility] TSH DL <= 0.005 mIU/L QnOrde red By: Charan Casey on 08-13-2022 TSH Qn 1.91 m[IU]/L 0.45-5.33 [facility] Triglyceride [Mass/volume] i n Serum or PlasmaOrdered By: Charan Casey on 08-13-2022 Triglyceride [Mass/Vol] 207 mg/dL 35-149 [facility] Comment on above: TRIG ATP III CLASSIF ICATIONTRIG less than 150 mg/dL NormalTRIG 150-199 mg/dL Borderline highTRIG 200-500 mg/dL High TRIG greater than 500 mg/dL Very highStandard traceable to the Center for Disease Conrtrol and Prevention (CDC) test method. Urine bacteria detection by automated methodOrdered By: Elpidio Whipple on 08-13-2022 Bacteria Auto Ql (U) None seen None Seen [facility] Urine clarity by refractomet ry automatedOrdered By: Elpidio Whipple on 08-13-2022 Clarity Refractometry automated (U) Clear Clear [facility] Urine glucose measurement by automated test strip (mass/volume)Ordered By: Elpidio Whipple on 08-13-2022 Glucose Auto test strip (U) [Mass/Vol] Normal mg/dL Normal [facility] Urine hemoglobin detection b y automated test stripOrdered By: Elpidio Whipple on 08-13-2022 Hemoglobin Auto test strip Ql (U) Negative Negative [facility] Urine leukocyte esterase det ection by automated test stripOrdered By: Elpidio Whipple on 08-13-2022 Leukocyte esterase Auto test strip Ql (U) Negative Negative [facility] Urine protein/creatinine rat ioOrdered By: Elpidio Whipple on 08-13-2022 Protein/Creatinine (U) [Ratio] 55 mg/g{Cre} 0-200 [facility] Urobilinogen Auto test strip (U) [Mass/Vol]Ordered By: Elpidio Whipple on 08-13-2022 Urobilinogen (U) [Mass/Vol] Normal mg/dL Normal [facility] pH Auto test strip (U)Ordere d By: Elpidio Whipple on 08-13-2022 pH (U) 5.0 [pH] 5.0-9.0 [facility] Tobacco Screening.on 022 Adult depression screening assessment No [facility] Biba DO Work Phone: Fall risk assessment a) No falls within the last year [facility] Biba DO Work Phone: Tobacco use status [facility] b) No [facility] [employer] [address] DO Work Phone: Laboratory - Chemistry and C hemistry - challengeon 03-25-2022 Cholesterol [Mass/Vol] 218\S\218 above hig h threshold 140-200 [facility] [employer] [address] DO Work Phone: Comment on above: Chol less than 200 m g/dl low risk Chol 201-239 mg/dl borderline risk Chol 240 mg/dl and greater high risk Cholesterol in LDL [Mass/Vol] 145\S\145 above high threshold 0-100 [facility] DO Work Phone: Comment on above: LDL ATP III CLASSIFI CATION LDL less than 100 mg/dL Optimal LDL 100-129 mg/dL Near or above optimal LDL 130-159 mg/dL Borderline high LDL 160-189 mg/dL High LDL greater than 189 mg/dL Very high Laboratory - Microbiology an d Antimicrobial susceptibilityon 03-25-2022 SARS-CoV-2 (COVID-19) RNA AHMET+probe Ql (Unsp spec) [facility] DO Work Phone: No Panel Informationon 03-25 40.2\S\40.2 Normal . [facility] DO Work Phone: 9.2\S\9.2 Normal 6.3-10.7 [facility] DO Work Phone: 200\S\200 Normal 150-450 [facility] DO Work Phone: 13.5\S\13.5 Normal 11.9-15.3 [facility] DO Work Phone: 34.0\S\34.0 Normal 32.0-35.0 [facility] DO Work Phone: 29.0\S\29.0 Normal 24.7-34.3 [facility] DO Work Phone: 2.0\S\2.0 Normal 1.8-7.7 [facility] DO Work Phone: 0.1\S\0.1 Normal 0.0-0.45 [facility] DO Work Phone: 0.6\S\0.6 Normal . [facility] DO Work Phone: 2.9\S\2.9 Normal . [facility] DO Work Phone: 7.1\S\7.1 Normal . [facility] DO Work Phone: 49.2\S\49.2 Normal . [facility] DO Work Phone: 0.0\S\0.0 Normal 0.0-0.2 -[facility] DO Work Phone: Comment on above: PERFORMED BY:[facility] [place], [place] [phone] MEDICAL DIRECTORJE SHELLEY M.D. 0.4\S\0.4 Normal 0.0-0.8 [facility] DO Work Phone: 2.5\S\2.5 Normal 1.00-4.8 [facility] DO Work Phone: 85.5\S\85.5 Normal 80-100 [facility] DO Work Phone: 39.0\S\39.0 Normal 34.0-46.4 [facility] DO Work Phone: 13.3\S\13.3 Normal 11.8-15.4 [facility] DO Work Phone: 4.56\S\4.56 Normal 3.60-5.00 [facility] DO Work Phone: 5.1\S\5.1 Normal 3.8-11.6 [facility] 250 DO Work Phone: 33.3\S\33.3 Normal 25.1-36.5 [facility] DO Work Phone: Comment on above: PERFORMED BY:[facility] [place], [place] [id number] MEDICAL DIRECTORJE SHELLEY M.D. 1.0\S\1.0 Normal [facility] DO Work Phone: Comment on above: INR [...] valves: 3 - 4.5 10.9\S\10.9 Normal 9.0-12.9 [facility] DO Work Phone: 26.6\S\26.6 Normal 22.0-30.0 [facility] DO Work Phone: 104\S\104 Normal 95-114 [facility] DO Work Phone: 4.0\S\4.0 Normal 3.5-5.1 [facility] DO Work Phone: 140\S\140 Normal 136-146 [facility] 250 DO Work Phone: 18\S\18 Normal 9-23 [facility] DO Work Phone: 54\S\54 Normal [facility] DO Work Phone: Comment on above: GFR estimated refere nce range: According to KDOQI guidelines, <60 ml/min/1.73m2 is sufficient to diagnose a patient with chronic kidney disease. 45\S\45 Normal [facility] DO Work Phone: 1.22\S\1.22 above high threshold 0.44-1.03 [facility] 250 DO Work Phone: 6.4\S\6.4 Normal <5.0 [facility] 250 DO Work Phone: Comment on above: PERFORMED BY:[facility] [place], [place] [phone] MEDICAL BRANT SHELLEY M.D. 39\S\39 Normal [facility] 250 DO Work Phone: 197\S\197 above high threshold 35-149 [place] [address] DO Work Phone: Comment on above: TRIG ATP III CLASSIF ICATION TRIG less than 150 mg/dL Normal TRIG 150-199 mg/dL Borderline high TRIG 200-500 mg/dL High TRIG greater than 500 mg/dL Very high Standard traceable to the Center for Disease Conrtrol and Prevention (CDC) test method. 34\S\34 below low threshold 35-85 [place] [address] DO Work Phone: Comment on above: HDL CHOL ATP-III CLA SSIFICATION Cardiovascular Risk HDL > or equal to 60 mg/dL LOW HDL < 40 mg/dL HIGH Negative Normal Negative [place] [address] DO Work Phone: Comment on above: This is a duplicate Ashley SARS Antigen (PRISCILA) result to be used for statistical tracking purpose only.PERFORMED BY:[facility] [place], [place] [phone] MEDICAL BRANT SHELLEY M.D. CT Angio Coronary Arteries w ith Heart Flowon 03-11-2022 CT Angio Coronary Arteries with Heart Flow Normal [place] [address] DO Work Phone: CTA CORONARY ART WITH HEA RTFLOW IF SCORE >30%.on 03-11-2022 CTA CORONARY ART WITH HEARTFLOW IF SCORE >30%. Addendum Begins Patient Name: RITA COBB ADDENDUM: NON-CARDIOVASCULAR FINDINGS INCLUDED LUNGS, AIRWAYS AND [...] R07.9: Chest pain. COMPARISON: None. ACCESSION NUMBER(S): [id number] ORDERING CLINICIAN: ROSALINDA TORRES TECHNIQUE: Using multi-detector [...] VALVE: The (more content not included)... Normal [facility] Tobacco Screening.on 022 Adult depression screening assessment No [facility] [employer] [facility] 250 DO Work Phone: Fall risk assessment a) No falls within the last year [facility] 250 DO Work Phone: Tobacco use status CPHS b) No [facility] 250 DO Work Phone: SURGICAL PATHOLOGYon SURGICAL PATHOLOGY Specimen #: [id number] Physician: REUBEN CRAVEN M.D. FINAL DIAGNOSIS1. 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 Skin, left upper arm, shave biopsy ([id number]; 07/20/2018) - Intradermal nevus, neurotized (see comment).AF/CE/dss [...] for MART-1 and S100 [facility] are [facility]. These stains highlight a [...] consultation. Please call theDermatopathology Consultation Service at [phone] with questions or ifadditional follow-up information becomes available regarding this patient.This case was reviewed in conjunction with the Dermatopathology Fellow, Dr.Carly Marija MD.Donald Zavaleta M.D. PhD(Electronic Signature) SPECIME N SUBMITTEDA: 11 SLIDES ([id number]) CLINICAL DATANone provided. of Report: 07/26/2018Date of Procedure: 07/23/2018Date of Receipt: 07/23/2018Submitted by: REUBEN CRAVEN M.D.Location: T92Mrpaunukca interpretation performed at [facility], [address] [place] [address]. Normal [facility] Comment on above: Performed By: #### S ####See report for performing lab information. Vital Signs Date Time Vital Sign Value Performing Clinician Facility 07-12-2025 08:20-0400 Body temperature 97.8 [degF] Charan Brysonbryn DO Work Phone: [facility] 07-12-2025 08:20-0400 Diastolic blood pressure 60 mm[Hg] Charan Casey DO Work Phone: [facility] 07-12-2025 08:20-0400 Heart rate 70 /min Charan Casey DO Work Phone: [facility] 07-12-2025 08:20-0400 Respiratory rate 16 /min Charan Jacinto DO Work Phone: [facility] 07-12-2025 08:20-0400 SaO2% (BldA) [Mass fraction] 97 % Charan Brysonbryn DO Work Phone: [facility] 07-12-2025 08:20-0400 Systolic blood pressure 116 mm[Hg] Charan Casey DO Work Phone: [facility] 05-15-2025 10:29-0400 Body height 167.6 cm Shaina Munroe DO Work Phone: [facility] 05-15-2025 10:29-0400 Body mass index (BMI) [Ratio] 35.86 kg/m2 Shaina Petznick DO Work Phone: [facility] 05-15-2025 10:29-0400 Body temperature 97.2 [degF] Shaina Petznick DO Work Phone: [facility] [employer] 05-15-2025 10:29-0400 Body weight 100.79 kg Shaina Petznick DO Work Phone: [facility] 05-15-2025 10:29-0400 Diastolic blood pressure 76 mm[Hg] Shaina Petznick DO Work Phone: [facility] 05-15-2025 10:29-0400 Heart rate 67 /min Shaina Petznick DO Work Phone: [facility] 05-15-2025 10:29-0400 SaO2% (BldA) [Mass fraction] 98 % Shaina Petznick DO Work Phone: [facility] 05-15-2025 10:29-0400 Systolic blood pressure 110 mm[Hg] Shaina Petznick DO Work Phone: [facility] 03-06-2025 08:09-0400 Body height 170.18 cm Charan Casey DO Work Phone: [facility] 03-06-2025 08:09-0400 Body mass index (BMI) [Ratio] 35.4 kg/m2 Charan Masseys DO Work Phone: [facility] 03-06-2025 08:09-0400 Body weight 102.51 kg Cahran Masseys DO Work Phone: [facility] 03-06-2025 08:09-0400 Respiratory rate 16 /min Charan Masseys DO Work Phone: [facility] 03-06-2025 08:09-0400 SaO2% (BldA) [Mass fraction] 98 % Charan Masseys DO Work Phone: [facility] 02-16-2025 09:35-0400 Body height 170.18 cm Charan Masseys DO Work Phone: [facility] 02-16-2025 09:35-0400 Body mass index (BMI) [Ratio] 36.5 kg/m2 Charan Masseys DO Work Phone: [facility] 02-16-2025 09:35-0400 Body weight 105.68 kg Charan Masseys DO Work Phone: [facility] 01-09-2025 10:01-0500 Body height 170.18 cm Charan Masseys DO Work Phone: [facility] 01-09-2025 10:01-0500 Body mass index (BMI) [Ratio] 36.5 kg/m2 Charan Masseys DO Work Phone: [facility] 01-09-2025 10:01-0500 Body weight 105.68 kg Charan Masseys DO Work Phone: [facility] 01-09-2025 10:01-0500 Diastolic blood pressure 84 mm[Hg] Charan Masseys DO Work Phone: [facility] 01-09-2025 10:01-0500 Heart rate 69 /min Charan Masseys DO Work Phone: [facility] 01-09-2025 10:01-0500 Respiratory rate 16 /min Charan Masseys DO Work Phone: [facility] 01-09-2025 10:01-0500 SaO2% (BldA) [Mass fraction] 98 % Charan Masseys DO Work Phone: [facility] 01-09-2025 10:01-0500 Systolic blood pressure 124 mm[Hg] Charan Masseys DO Work Phone: [facility] 12-09-2024 10:39-0500 Body height 170.18 cm Charan Masseys DO Work Phone: [facility] 12-09-2024 10:39-0500 Body mass index (BMI) [Ratio] 36.1 kg/m2 Charanheather Masseys DO Work Phone: [facility] 12-09-2024 10:39-0500 Body temperature 98.4 [degF] Charan Masseys DO Work Phone: [facility] 12-09-2024 10:39-0500 Body weight 104.77 kg Charan Masseys DO Work Phone: [facility] 12-09-2024 10:39-0500 Diastolic blood pressure 66 mm[Hg] Charan Masseys DO Work Phone: [facility] 12-09-2024 10:39-0500 Heart rate 78 /min Charan Masseys DO Work Phone: [facility] 12-09-2024 10:39-0500 Respiratory rate 16 /min Charan Masseys DO Work Phone: [facility] 12-09-2024 10:39-0500 SaO2% (BldA) [Mass fraction] 97 % Charan Masseys DO Work Phone: [facility] 12-09-2024 10:39-0500 Systolic blood pressure 130 mm[Hg] Charan Masseys DO Work Phone: [facility] 2024 09:30-0500 Diastolic blood pressure 83 mm[Hg] Charan Masseys DO Work Phone: [facility] 2024 09:30-0500 Heart rate 65 /min Charan Brysons DO Work Phone: [facility] 2024 09:30-0500 Respiratory rate 16 /min Charan Brysons DO Work Phone: [facility] 2024 09:30-0500 SaO2% (BldA) [Mass fraction] 99 % Charan Masseys DO Work Phone: [facility] 2024 09:30-0500 Systolic blood pressure 164 mm[Hg] Charan Casey DO Work Phone: [facility] 2024 08:48-0500 Inhaled oxygen flow rate 3 L/min Charan Casey DO Work Phone: [facility] 2024 07:38-0500 Body height 170.18 cm Charan Casey DO Work Phone: [facility] 2024 07:38-0500 Body weight 108.86 kg Charan Casey DO Work Phone: [facility] 10-19-2024 08:13-0500 Body weight 109.88 kg Charan Casey DO Work Phone: [facility] 10-17-2024 13:12-0500 Body height 167.6 cm Shaina Petznick DO Work Phone: [facility] 10-17-2024 13:12-0500 Body mass index (BMI) [Ratio] 39.06 kg/m2 Shaina Petznick DO Work Phone: [facility] 10-17-2024 13:12-0500 Body temperature 97.3 [degF] Shaina Petznick DO Work Phone: [facility] 10-17-2024 13:12-0500 Body weight 109.77 kg Shaina Petznick DO Work Phone: [facility] 10-17-2024 13:12-0500 Diastolic blood pressure 68 mm[Hg] Shaina Petznick DO Work Phone: [facility] 10-17-2024 13:12-0500 Heart rate 78 /min Shaina Petznick DO Work Phone: [facility] 10-17-2024 13:12-0500 SaO2% (BldA) [Mass fraction] 96 % Shaina Petznick DO Work Phone: [facility] 10-17-2024 13:12-0500 Systolic blood pressure 128 mm[Hg] Shaina Petznick DO Work Phone: [facility] 09-20-2024 10:28-0400 Diastolic blood pressure 76 mm[Hg] DO Charan Casey Work Phone: [facility] 09-20-2024 10:28-0400 Heart rate 68 /min DO Charan Casey Work Phone: [facility] 09-20-2024 10:28-0400 Respiratory rate 16 /min DO Charan Casey Work Phone: [facility] 09-20-2024 10:28-0400 SaO2% (BldA) [Mass fraction] 95 % DO Charan Casey Work Phone: [facility] 09-20-2024 10:28-0400 Systolic blood pressure 157 mm[Hg] DO Charan Casey Work Phone: [facility] 09-20-2024 09:50-0400 Inhaled oxygen flow rate 3 L/min DO Charan Casey Work Phone: [facility] 09-20-2024 08:38-0400 Body height 170.18 cm DO Charan Casey Work Phone: [facility] 09-20-2024 08:38-0400 Body weight 107.95 kg DO Charan Casey Work Phone: [facility] 08-25-2024 08:35-0400 Body height 170.2 cm Rosalinda Torres MD Work Phone: [facility] 08-25-2024 08:35-0400 Body mass index (BMI) [Ratio] 37.75 kg/m2 Rosalinda Torres MD Work Phone: [facility] 08-25-2024 08:35-0400 Body weight 109.32 kg Rosalinda Torres MD Work Phone: [facility] 08-25-2024 08:35-0400 Diastolic blood pressure 80 mm[Hg] Rosalinda Torres MD Work Phone: [facility] 08-25-2024 08:35-0400 Heart rate 80 /min Rosalinda Torres MD Work Phone: [facility] 08-25-2024 08:35-0400 Systolic blood pressure 130 mm[Hg] Rosalinda Torres MD Work Phone: [facility] 06-08-2024 15:44-0400 Body height 170.18 cm DO Charan Kuns Work Phone: [facility] 06-08-2024 15:44-0400 Body mass index (BMI) [Ratio] 37 kg/m2 DO Charan Kuns Work Phone: [facility] 06-08-2024 15:44-0400 Body weight 107.5 kg DO Charan Kuns Work Phone: [facility] 06-08-2024 15:44-0400 Diastolic blood pressure 76 mm[Hg] DO Charan Kuns Work Phone: [facility] 06-08-2024 15:44-0400 Heart rate 95 /min DO Charan Kuns Work Phone: [facility] 06-08-2024 15:44-0400 SaO2% (BldA) [Mass fraction] 96 % DO Charan Kuns Work Phone: [facility] 06-08-2024 15:44-0400 Systolic blood pressure 151 mm[Hg] DO Charan Kuns Work Phone: [facility] 05-31-2024 11:30-0400 Diastolic blood pressure 78 mm[Hg] DO Charan Kuns Work Phone: [facility] 05-31-2024 11:30-0400 Heart rate 68 /min DO Charan Kuns Work Phone: [facility] 05-31-2024 11:30-0400 Respiratory rate 16 /min DO Charan Kuns Work Phone: [facility] 05-31-2024 11:30-0400 SaO2% (BldA) [Mass fraction] 98 % DO Charan Casey Work Phone: [facility] 05-31-2024 11:30-0400 Systolic blood pressure 152 mm[Hg] DO Charanheather Masseys Work Phone: [facility] 05-31-2024 10:53-0400 Inhaled oxygen flow rate 3 L/min DO Charan Masseys Work Phone: [facility] 05-31-2024 10:09-0400 Body height 170.18 cm DO Charan Masseys Work Phone: [facility] 05-31-2024 10:09-0400 Body weight 108.86 kg DO Charan Masseys Work Phone: [facility] 03-01-2024 09:31-0400 Body height 170.18 cm DO Charan Masseys Work Phone: [facility] 03-01-2024 09:31-0400 Body mass index (BMI) [Ratio] 37.4 kg/m2 DO Charan Masseys Work Phone: [facility] 03-01-2024 09:31-0400 Body temperature 96.8 [degF] DO Charan Casey Work Phone: [facility] 03-01-2024 09:31-0400 Body weight 108.4 kg DO Charanheather Masseys Work Phone: [facility] 03-01-2024 09:31-0400 Diastolic blood pressure 83 mm[Hg] DO Charan Brysons Work Phone: [facility] 03-01-2024 09:31-0400 Heart rate 88 /min DO Charanheather Masseys Work Phone: [facility] 03-01-2024 09:31-0400 Respiratory rate 16 /min DO Charanheather Masseys Work Phone: [facility] 03-01-2024 09:31-0400 SaO2% (BldA) [Mass fraction] 98 % DO Charan Casey Work Phone: [facility] 03-01-2024 09:31-0400 Systolic blood pressure 146 mm[Hg] DO Charan Casey Work Phone: [facility] 02-22-2024 14:26-0400 Body height 170.2 cm Rosalinda Torres MD Work Phone: [facility] 02-22-2024 14:26-0400 Body mass index (BMI) [Ratio] 37.12 kg/m2 Rosalinda Torres MD Work Phone: [facility] 02-22-2024 14:26-0400 Body weight 107.5 kg Rosalinda Torres MD Work Phone: [facility] 02-22-2024 14:26-0400 Diastolic blood pressure 60 mm[Hg] Rosalinda Torres MD Work Phone: [facility] 02-22-2024 14:26-0400 Heart rate 84 /min Rosalinda Torres MD Work Phone: [facility] 02-22-2024 14:26-0400 Systolic blood pressure 130 mm[Hg] Rosalinda Torres MD Work Phone: [facility] 12-30-2023 13:00-0500 Body height 170.18 cm Charan Casey Other [facility] 12-30-2023 13:00-0500 Body mass index (BMI) [Ratio] 37.59 kg/m2 Charan Casey Other [employer] [facility] [employer] Other 12-30-2023 13:00-0500 Body temperature 98.3 [degF] Charan Casey Other [employer] [facility] [employer] Other 12-30-2023 13:00-0500 Body weight 108.86 kg Charan Casey Other [facility] 12-30-2023 13:00-0500 Diastolic blood pressure 80 mm[Hg] Charan Casey Other [facility] 12-30-2023 13:00-0500 Respiratory rate 18 /min Charan Casey Other [employer] Other 12-30-2023 13:00-0500 SaO2% (BldA) [Mass fraction] 96 % Charan Casey Other [employer] Other 12-30-2023 13:00-0500 Systolic blood pressure 150 mm[Hg] Charan Casey Other [facility] 10-21-2023 12:45-0500 Body height 170.18 cm Blas Bellamy Other [employer] Other 10-21-2023 12:45-0500 Body mass index (BMI) [Ratio] 37.43 kg/m2 Blas Bellamy Other [employer] Other 10-21-2023 12:45-0500 Body temperature 97.6 [degF] Blas Bellamy Other [employer] Other 10-21-2023 12:45-0500 Body weight 108.41 kg Blas Bellamy Other [employer] Other 10-21-2023 12:45-0500 Diastolic blood pressure 90 mm[Hg] Blas Bellamy Other [employer] Other 10-21-2023 12:45-0500 Respiratory rate 18 /min Blas Bellamy Other [employer] Other 10-21-2023 12:45-0500 SaO2% (BldA) [Mass fraction] 96 % Blas Bellamy Other [employer] Other 10-21-2023 12:45-0500 Systolic blood pressure 143 mm[Hg] Blas Bellamy Other [employer] Other 10-06-2023 09:04-0500 Diastolic blood pressure 74 mm[Hg] DO Charan Casey Work Phone: [facility] 10-06-2023 09:04-0500 Heart rate 76 /min DO Charan Casey Work Phone: [facility] 10-06-2023 09:04-0500 Respiratory rate 16 /min DO Charan Casey Work Phone: [facility] 10-06-2023 09:04-0500 SaO2% (BldA) [Mass fraction] 96 % DO Charan Casey Work Phone: [facility] 10-06-2023 09:04-0500 Systolic blood pressure 159 mm[Hg] DO Charanheather Casey Work Phone: [facility] 10-06-2023 07:01-0500 Body height 170.18 cm DO Charan Casey Work Phone: [facility] 10-06-2023 07:01-0500 Body weight 106.59 kg DO Charan Casey Work Phone: [facility] 09-15-2023 10:20-0400 Body height 170.18 cm Elpidio Sole Other [employer] Other 09-15-2023 10:20-0400 Body mass index (BMI) [Ratio] 37.46 kg/m2 Elpidio Sole Other [employer] Other 09-15-2023 10:20-0400 Body temperature 97.2 [degF] Elpidio Sole Other [employer] Other 09-15-2023 10:20-0400 Body weight 108.5 kg Elpidio Sole Other [employer] Other 09-15-2023 10:20-0400 Diastolic blood pressure 80 mm[Hg] Elpidio Sole Other [employer] Other 09-15-2023 10:20-0400 Respiratory rate 18 /min Elpidio Sole Other [employer] Other 09-15-2023 10:20-0400 SaO2% (BldA) [Mass fraction] 99 % Elpidio Sole Other [employer] Other 09-15-2023 10:20-0400 Systolic blood pressure 140 mm[Hg] Elpidio Sole Other [employer] Other 09-08-2023 09:00-0400 Diastolic blood pressure 88 mm[Hg] DO Charan [employer] Work Phone: [facility] 09-08-2023 09:00-0400 Heart rate 69 /min DO Charan Kuns Work Phone: [facility] 09-08-2023 09:00-0400 Respiratory rate 16 /min DO Charan Kuns Work Phone: [facility] 09-08-2023 09:00-0400 SaO2% (BldA) [Mass fraction] 96 % DO Charan Kuns Work Phone: [facility] 09-08-2023 09:00-0400 Systolic blood pressure 146 mm[Hg] DO Charan Casey Work Phone: [facility] 09-08-2023 08:17-0400 Inhaled oxygen flow rate 3 L/min DO Charan Casey Work Phone: [facility] 09-08-2023 07:21-0400 Body height 170.18 cm DO Charan Casey Work Phone: [facility] 09-08-2023 07:21-0400 Body weight 108.86 kg DO Charan Casey Work Phone: [facility] 08-17-2023 09:30-0400 Body height 170.18 cm Blas Ortiz Other [employer] Other 08-17-2023 09:30-0400 Body mass index (BMI) [Ratio] 38.06 kg/m2 Blas Ortiz Other [employer] Other 08-17-2023 09:30-0400 Body weight 110.22 kg Blas Ortiz Other [employer] Other 08-11-2023 09:20-0400 Body height 170.18 cm Thierno Chatterjee Other [employer] Other 08-11-2023 09:20-0400 Body mass index (BMI) [Ratio] 38.06 kg/m2 Thierno Chatterjee Other [employer] Other 08-11-2023 09:20-0400 Body weight 110.22 kg Thierno Chatterjee Other [employer] Other 08-11-2023 09:20-0400 Diastolic blood pressure 90 mm[Hg] Thierno Chatterjee Other [employer] Other 08-11-2023 09:20-0400 Systolic blood pressure 152 mm[Hg] Thierno Chatterjee Other [employer] Other 08-05-2023 08:15-0400 Body height 170.18 cm Charan Casey Other [employer] Other 08-05-2023 08:15-0400 Body mass index (BMI) [Ratio] 38.21 kg/m2 Charan Casey Other [employer] Other 08-05-2023 08:15-0400 Body weight 110.68 kg Charan Casey Other [employer] Other 08-05-2023 08:15-0400 Diastolic blood pressure 60 mm[Hg] Charan Casey Other [employer] Other 08-05-2023 08:15-0400 Respiratory rate 18 /min Charan Casey Other [employer] Other 08-05-2023 08:15-0400 SaO2% (BldA) [Mass fraction] 95 % Charan Casey Other [employer] Other 08-05-2023 08:15-0400 Systolic blood pressure 126 mm[Hg] Charan Casey Other [employer] Other 05-19-2023 12:30-0400 Body height 170.18 cm Charan Casey Other [employer] Other 05-19-2023 12:30-0400 Diastolic blood pressure 74 mm[Hg] Charan Casey Other [employer] Other 05-19-2023 12:30-0400 Respiratory rate 18 /min Charan Casey Other [facility] [employer] Other 05-19-2023 12:30-0400 SaO2% (BldA) [Mass fraction] 97 % Charan Casey Other [facility] [employer] Other 05-19-2023 12:30-0400 Systolic blood pressure 140 mm[Hg] Charan Casey Other [facility] [employer] Other 04-30-2023 10:17-0400 Body height 170.18 cm Charan Casey Work Phone: [facility] [employer] 250 DO Work Phone: 04-30-2023 10:17-0400 Body mass index (BMI) [Ratio] Medical Reason Not Done Charan Casey Work Phone: [employer] [employer] 250 DO Work Phone: 04-30-2023 10:17-0400 Diastolic blood pressure 64 mm[Hg] Charan Casey Work Phone: [facility] [employer] 250 DO Work Phone: 04-30-2023 10:17-0400 Heart rate 72 /min Charan Casey Work Phone: [facility] [employer] 250 DO Work Phone: 04-30-2023 10:17-0400 Systolic blood pressure 128 mm[Hg] Charan Casey Work Phone: [facility] [employer] 250 DO Work Phone: 03-31-2023 15:30-0400 Body height 170.18 cm Charan Casey Other [facility] [employer] Other 03-31-2023 15:30-0400 Diastolic blood pressure 64 mm[Hg] Charan Casey Other [employer] Other 03-31-2023 15:30-0400 Respiratory rate 18 /min Charan Casey Other [employer] Other 03-31-2023 15:30-0400 SaO2% (BldA) [Mass fraction] 98 % Charan Casey Other [employer] Other 03-31-2023 15:30-0400 Systolic blood pressure 126 mm[Hg] Charan Casey Other [employer] Other 03-10-2023 15:40-0400 Body height 170.18 cm Elpidio Sole Other [employer] Other 03-10-2023 15:40-0400 Diastolic blood pressure 86 mm[Hg] Elpidio Sole Other [employer] Other 03-10-2023 15:40-0400 Respiratory rate 16 /min Elpidio Sole Other [employer] Other 03-10-2023 15:40-0400 SaO2% (BldA) [Mass fraction] 99 % Elpidio Sole Other [employer] Other 03-10-2023 15:40-0400 Systolic blood pressure 135 mm[Hg] Elpidio Sole Other [employer] Other 03-04-2023 15:00-0400 Body height 170.18 cm Federico Sepulveda Other [employer] Other 03-04-2023 15:00-0400 Body mass index (BMI) [Ratio] 37.43 kg/m2 Federico Hanno Other [employer] Other 03-04-2023 15:00-0400 Body weight 108.41 kg Federico Hanno Other [employer] Other 03-04-2023 15:00-0400 Diastolic blood pressure 83 mm[Hg] Federico Hanno Other [employer] Other 03-04-2023 15:00-0400 SaO2% (BldA) [Mass fraction] 98 % Federico Hanno Other [employer] Other 03-04-2023 15:00-0400 Systolic blood pressure 157 mm[Hg] Federico Hanno Other [employer] Other 09-24-2022 16:00-0400 Body height 170.18 cm Elpidio Sole Other [employer] Other 09-24-2022 16:00-0400 Body mass index (BMI) [Ratio] 37.37 kg/m2 Elpidio Sole Other [employer] Other 09-24-2022 16:00-0400 Body temperature 96.4 [degF] Elpidio Sole Other [employer] Other 09-24-2022 16:00-0400 Body weight 108.23 kg Elpidio Sole Other [employer] Other 09-24-2022 16:00-0400 Diastolic blood pressure 64 mm[Hg] Elpidio Sole Other [employer] Other 09-24-2022 16:00-0400 Respiratory rate 16 /min Elpidio Sole Other [employer] Other 09-24-2022 16:00-0400 SaO2% (BldA) [Mass fraction] 98 % Elpidio Sole Other [employer] Other 09-24-2022 16:00-0400 Systolic blood pressure 120 mm[Hg] Elpidio Sole Other [employer] Other 09-02-2022 14:00-0400 Body height 170.18 cm Charan Casey Other [employer] Other 09-02-2022 14:00-0400 Body mass index (BMI) [Ratio] 37.9 kg/m2 Charan Casey Other [employer] Other 09-02-2022 14:00-0400 Body weight 109.77 kg Charan Casey Other [employer] Other 09-02-2022 14:00-0400 Diastolic blood pressure 70 mm[Hg] Charan Casey Other [employer] Other 09-02-2022 14:00-0400 Respiratory rate 16 /min Charan Casey Other [employer] Other 09-02-2022 14:00-0400 SaO2% (BldA) [Mass fraction] 97 % Charan Casey Other [employer] Other 09-02-2022 14:00-0400 Systolic blood pressure 112 mm[Hg] Charan Casey Other [facility] [employer] Other 07-27-2022 19:56-0400 Body height 170.18 cm DO Charan Casey Work Phone: [facility] 07-27-2022 19:56-0400 Body temperature 99.1 [degF] DO Charan Casey Work Phone: [facility] 07-27-2022 19:56-0400 Body weight 110.55 kg DO Charan Casey Work Phone: [facility] 07-27-2022 19:56-0400 Diastolic blood pressure 81 mm[Hg] DO Charan Casey Work Phone: [facility] 07-27-2022 19:56-0400 Heart rate 89 /min DO Charan Casey Work Phone: [facility] 07-27-2022 19:56-0400 Respiratory rate 20 /min DO Charan Casey Work Phone: [facility] 07-27-2022 19:56-0400 SaO2% (BldA) [Mass fraction] 98 % DO Charan Casey Work Phone: [facility] 07-27-2022 19:56-0400 Systolic blood pressure 142 mm[Hg] DO Charan Casey Work Phone: [facility] 05-08-2022 08:51-0400 Body height 170.18 cm Charan Casey Work Phone: [facility] DO Work Phone: 05-08-2022 08:51-0400 Body mass index (BMI) [Ratio] 38.06 kg/m2 Charan Casey Work Phone: [facility] DO Work Phone: 05-08-2022 08:51-0400 Body surface area Derived from formula 2.2 m2 Charan Casey Work Phone: [facility] DO Work Phone: 05-08-2022 08:51-0400 Body weight 110.22 kg Charan Casey Work Phone: [facility] DO Work Phone: 05-08-2022 08:51-0400 Diastolic blood pressure 70 mm[Hg] Charan Casey Work Phone: [facility] DO Work Phone: 05-08-2022 08:51-0400 Heart rate 72 /min Charan Casey Work Phone: [facility] DO Work Phone: 05-08-2022 08:51-0400 Systolic blood pressure 136 mm[Hg] Charanheather Casey Work Phone: [facility] [employer] DO Work Phone: 04-30-2022 17:00-0400 Body height 170.18 cm Federico Sepulveda Other [facility] [employer] Other 04-30-2022 17:00-0400 Body mass index (BMI) [Ratio] 38.52 kg/m2 Federico Sepulveda Other [employer] Other 04-30-2022 17:00-0400 Body temperature 97.1 [degF] Federico Sepulveda Other [employer] Other 04-30-2022 17:00-0400 Body weight 111.59 kg Federico Sepulveda Other [employer] Other 04-30-2022 17:00-0400 Diastolic blood pressure 86 mm[Hg] Kumarcalderon Bucknerdano Other [employer] Other 04-30-2022 17:00-0400 SaO2% (BldA) [Mass fraction] 97 % Kumarcalderon Bucknerdano Other [employer] Other 04-30-2022 17:00-0400 Systolic blood pressure 148 mm[Hg] Kumarcalderon Bucknerdano Other [employer] Other 04-14-2022 11:30-0400 Body height 170.18 cm Charan Casey Other [employer] Other 04-14-2022 11:30-0400 Body mass index (BMI) [Ratio] 38.52 kg/m2 Charan Casey Other [employer] Other 04-14-2022 11:30-0400 Body weight 111.59 kg Charan Casey Other [employer] Other 04-14-2022 11:30-0400 Diastolic blood pressure 70 mm[Hg] Charan Casey Other [employer] Other 04-14-2022 11:30-0400 Respiratory rate 16 /min Charan Casey Other [employer] Other 04-14-2022 11:30-0400 SaO2% (BldA) [Mass fraction] 99 % Charan Casey Other [employer] Other 04-14-2022 11:30-0400 Systolic blood pressure 126 mm[Hg] Charan Casey Other [employer] Other 02-20-2022 17:00-0400 Body mass index (BMI) [Ratio] 38.56 kg/m2 Elpidio Sole Other [employer] Other 02-20-2022 17:00-0400 Body temperature 97.2 [degF] Elpidio Sole Other [employer] Other 02-20-2022 17:00-0400 Body weight 111.68 kg Elpidio Sole Other [employer] Other 02-20-2022 17:00-0400 Diastolic blood pressure 79 mm[Hg] Elpidio Sole Other [employer] Other 02-20-2022 17:00-0400 Respiratory rate 18 /min Elpidio Sole Other [employer] Other 02-20-2022 17:00-0400 SaO2% (BldA) [Mass fraction] 98 % Elpidio Sole Other [employer] Other 02-20-2022 17:00-0400 Systolic blood pressure 134 mm[Hg] Elpidio Sole Other [employer] Other 02-20-2022 12:28-0400 Body height 170.18 cm Charan Casey Work Phone: [facility] DO Work Phone: 02-20-2022 12:28-0400 Body mass index (BMI) [Ratio] 38.37 kg/m2 Charan Casey Work Phone: [facility] DO Work Phone: 02-20-2022 12:28-0400 Body surface area Derived from formula 2.2 m2 Charan Dani Casey Work Phone: [facility] DO Work Phone: 02-20-2022 12:28-0400 Body weight 111.13 kg Charan Casey Work Phone: [facility] DO Work Phone: 02-20-2022 12:28-0400 Diastolic blood pressure 71 mm[Hg] Charan Dani Casey Work Phone: [facility] DO Work Phone: 02-20-2022 12:28-0400 Heart rate 72 /min Charan Dani Casey Work Phone: [facility] DO Work Phone: 02-20-2022 12:28-0400 Systolic blood pressure 131 mm[Hg] Charan aDni Casey Work Phone: [facility] DO Work Phone: 02-07-2022 09:45-0500 Body height 170.18 cm Charan Casey Other [facility] [employer] Other 02-07-2022 09:45-0500 Body mass index (BMI) [Ratio] 38.27 kg/m2 Charan Casey Other [facility] [employer] Other 02-07-2022 09:45-0500 Body weight 110.86 kg Charan Casey Other [place] [employer] Other 02-07-2022 09:45-0500 Diastolic blood pressure 82 mm[Hg] Charan Casey Other [place] [employer] Other 02-07-2022 09:45-0500 Respiratory rate 18 /min Charan Casey Other [employer] Other 02-07-2022 09:45-0500 SaO2% (BldA) [Mass fraction] 95 % Charan Casey Other [employer] Other 02-07-2022 09:45-0500 Systolic blood pressure 148 mm[Hg] Charan Casey Other [employer] Other 12-31-2021 17:20-0500 Body height 170.18 cm Thierno Chatterjee Other [employer] Other 12-31-2021 17:20-0500 Body mass index (BMI) [Ratio] 38.84 kg/m2 Thierno Chatterjee Other [employer] Other 12-31-2021 17:20-0500 Body weight 112.49 kg Thierno Chatterjee Other [employer] Other 12-03-2021 15:00-0500 Body height 170.18 cm Charan Casey Other [employer] Other 10-01-2021 17:15-0400 Body height 170.18 cm Blas Ortiz Other [employer] Other Encounters Encounter Date Encounter Type Care Provider Facility Start: 07-12-2025 End: 07-12-2025 ambulatory Charan Casey DO Work Phone: [facility] Work Phone: Start: 07-12-2025 End: 07-12-2025 Patient encounter procedure Charan Louise DO -[facility] Work Phone: Start: 06-30-2025 Non-patient / Non-visit Karla Lyons MD -[facility] Work Phone: Start: 06-29-2025 Non-patient / Non-visit Karla Lyons MD -[facility] Work Phone: Start: 06-28-2025 Non-patient / Non-visit Gustavo Mason BASSETT -[facility] Work Phone: Start: 06-21-2025 End: 06-21-2025 ambulatory Charan Casey DO Work Phone: [facility] Work Phone: Start: 06-21-2025 End: 06-21-2025 Patient encounter procedure Blas Louise MD -[facility] Work Phone: Start: 06-14-2025 Non-patient / Non-visit Blas Louise MD [facility] Work Phone: Start: 06-14-2025 End: 06-14-2025 ambulatory Charan Casey DO Work Phone: [facility] Work Phone: Start: 06-14-2025 End: 06-14-2025 Patient encounter procedure Blas Louise MD [facility] Work Phone: Start: 06-05-2025 End: 06-05-2025 Patient encounter procedure Acosta Castro Carmen MS -[facility] Start: 06-05-2025 End: 06-05-2025 ambulatory Charan Casey DO Work Phone: [facility] Work Phone: Start: 05-31-2025 End: 05-31-2025 ambulatory Charan Casey DO Work Phone: [facility] Work Phone: Start: 05-31-2025 End: 05-31-2025 Patient encounter procedure Blas Louise MD [facility] Work Phone: Start: 05-15-2025 End: 05-15-2025 Office outpatient visit 25 minutes Shaina Munroe DO Work Phone: [facility] [phone] Comment on above: Type 2 diabetes wicho itus with Charcot's joint arthropathy (HCC) (Primary Dx); Type 2 diabetes mellitus with peripheral neuropathy (HCC); Type 2 diabetes mellitus with both eyes affected by mild nonproliferative retinopathy without macular edema, with long-term current use of insulin (HCC); Long-term insulin use (HCC); Class 2 severe obesity due to excess calories with serious comorbidity and body mass index (BMI) of 35.0 to 35.9 in adult ([facility]) Start: 05-15-2025 End: 05-15-2025 ambulatory SHAINA Carmen LUDWIG Not Available Start: 03-06-2025 End: 03-06-2025 ambulatory Charan Casey DO Work Phone: [facility] Work Phone: Start: 03-06-2025 End: 03-06-2025 Patient encounter procedure Charan Casey DO Work Phone: [facility] Work Phone: Start: 02-16-2025 End: 02-16-2025 ambulatory Charan Casey DO Work Phone: [facility] Work Phone: Start: 02-16-2025 End: 02-16-2025 Patient encounter procedure Charan Casey DO Work Phone: [facility] Work Phone: Start: 02-14-2025 End: 02-14-2025 ambulatory SHAINA MUNROE Not Available Start: 02-01-2025 Non-patient / Non-visit Charan Casey DO Work Phone: [facility]ician [facility] Work Phone: Start: 02-01-2025 End: 02-01-2025 ambulatory Charan Casey DO Work Phone: [facility] Work Phone: Start: 02-01-2025 End: 02-01-2025 Patient encounter procedure Charanheather Casey DO Work Phone: [facility] Work Phone: Start: 01-31-2025 End: 01-31-2025 ambulatory Charan Casey DO Work Phone: [facility] Work Phone: Start: 01-31-2025 End: 01-31-2025 Discharged Recurring Charanheather Casey DO Work Phone: [facility]-Physical Therapy [place] Start: 01-31-2025 Registered Recurring Charanheather Massey s DO Work Phone: [facility]-Physical Therapy [place] Start: 01-26-2025 End: 01-26-2025 ambulatory Charanheather Casey DO Work Phone: [facility] Work Phone: Start: 01-26-2025 End: 01-26-2025 Patient encounter procedure Charanheather Casey DO Work Phone: [facility] Group-Counts Include [address] [facility] Work Phone: Start: 01-26-2025 Registered Recurring Charanheather clemente DO Work Phone: [facility]-Physical Therapy [place] Start: 01-23-2025 End: 01-23-2025 Patient encounter procedure Charanheather Casey DO Work Phone: [facility]-MRI [address] Closed Work Phone: Start: 01-23-2025 End: 01-23-2025 ambulatory Charan Jacinto DO Work Phone: [facility] Work Phone: Start: 01-18-2025 End: 01-18-2025 ambulatory Charanheather Casey DO Work Phone: [facility] Work Phone: Start: 01-18-2025 End: 01-18-2025 Patient encounter procedure Charanheather Casey DO Work Phone: [facility] Work Phone: Start: 01-13-2025 Registered Recurring Charanheather Massey s DO Work Phone: [facility]-Physical Therapy [place] Start: 01-09-2025 End: 01-09-2025 Telephone encounter Shaina Munroe DO Work Phone: [facility] 230 Start: 01-09-2025 Non-patient / Non-visit Charan Masseybryn DO Work Phone: [facility] Work Phone: Start: 01-09-2025 End: 01-09-2025 ambulatory Charanheather Casey DO Work Phone: [facility] Work Phone: Start: 01-09-2025 End: 01-09-2025 Patient encounter procedure Charanheather Casey DO Work Phone: [facility] Physician [facility] Work Phone: Start: 01-03-2025 Registered Recurring Charan Bryson bryn DO Work Phone: [facility]-Physical Therapy [place] Start: 12-29-2024 End: 12-29-2024 ambulatory Charanheather Casey DO Work Phone: [facility] Work Phone: Start: 12-29-2024 End: 12-29-2024 Patient encounter procedure Charanheather Casey DO Work Phone: [facility] Physician [facility] Work Phone: Start: 12-26-2024 End: 12-26-2024 ambulatory Charanheather Casey DO Work Phone: [facility] Work Phone: Start: 12-26-2024 End: 12-26-2024 Patient encounter procedure Charan Casey DO Work Phone: [facility] Work Phone: Start: 12-26-2024 Registered Recurring Charan clemente DO Work Phone: [facility]-Physical Therapy [place] Start: 12-09-2024 End: 12-09-2024 ambulatory Charanheather Casey DO Work Phone: [facility] Work Phone: Start: 12-09-2024 End: 12-09-2024 Patient encounter procedure Charan Casey DO Work Phone: [facility] Work Phone: Start: 12-08-2024 End: 12-08-2024 Patient encounter procedure Charan Casey DO Work Phone: [facility] Start: 12-08-2024 End: 12-08-2024 ambulatory Charan Casey DO Work Phone: [facility] Work Phone: Start: 11-15-2024 Registered Recurring Charan clemente DO Work Phone: [facility]-Physical Therapy [place] Start: 2024 Non-patient / Non-visit Charan Casey DO Work Phone: [facility] Work Phone: Start: 2024 End: 2024 Admission to same day surgery center Charan Casey DO Work Phone: [facility] Work Phone: Start: 2024 End: 2024 ambulatory Blas Ortiz Facility:[facility] Start: 10-25-2024 End: 10-25-2024 Patient encounter procedure Charan Casey DO Work Phone: [facility]-Counts Include [address] [facility] Work Phone: Start: 10-25-2024 End: 10-25-2024 ambulatory Nader Curry Facility:[facility] Start: 10-19-2024 End: 10-19-2024 ambulatory Charan Casey DO Work Phone: [facility] Work Phone: Start: 10-19-2024 End: 10-19-2024 Patient encounter procedure Charan Casey DO Work Phone: [facility] Work Phone: Start: 10-17-2024 End: 10-17-2024 Office outpatient visit 25 minutes Shaina Munroe DO Work Phone: [facility] 230 Comment on above: Type 2 diabetes wicho itus with peripheral neuropathy (CMS/HCC) (Primary Dx); 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 (CMS/HCC); Type 2 diabetes mellitus with both eyes affected by mild nonproliferative retinopathy without macular edema, with long-term current use of insulin (CMS/HCC); Long-term insulin use (CMS/HCC); Class 2 severe obesity due to excess calories with serious comorbidity and body mass index (BMI) of 39.0 to 39.9 in adult (CMS/HCC) Start: 10-17-2024 End: 10-17-2024 ambulatory SHAINA MUNROE Not Available Start: 09-20-2024 Non-patient / Non-visit DO Yeison Casey Work Phone: [facility] Work Phone: Start: 09-20-2024 End: 09-20-2024 Admission to same day surgery center DO Charan Casey Work Phone: [facility] Work Phone: Start: 09-20-2024 End: 09-20-2024 ambulatory DO Charan Casey Work Phone: [facility] Work Phone: Start: 09-12-2024 Non-patient / Non-visit DO Yeison Casey Work Phone: [facility] Work Phone: Start: 09-12-2024 End: 09-12-2024 ambulatory DO Charan Casey Work Phone: [facility] Work Phone: Start: 09-12-2024 End: 09-12-2024 Patient encounter procedure DO Charan Casey Work Phone: [facility] Work Phone: Start: 09-07-2024 End: 09-07-2024 Patient encounter procedure DO Charan Casey Work Phone: [facility] Work Phone: Start: 09-07-2024 End: 09-07-2024 ambulatory DO Charan Casey Work Phone: [facility] Work Phone: Start: 09-02-2024 End: 09-02-2024 ambulatory Charan Casey Facility:[facility] Start: 09-02-2024 Registered Recurring DO Charan Casey Work Phone: [facility]-Physical Therapy [place] Start: 08-25-2024 End: 08-25-2024 Office outpatient visit 25 minutes Rosalinda Torres MD Work Phone: [facility] Comment on above: Coronary artery dise ase, unspecified vessel or lesion type, unspecified whether angina present, unspecified whether [place] or transplanted heart; Elevated coronary artery calcium score; Essential hypertension; Hyperlipidemia, unspecified hyperlipidemia type; Type 2 diabetes mellitus without complication, with long-term current use of insulin (Multi); 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; Obstructive sleep apnea syndrome; Class 2 obesity with body mass index (BMI) of 37.0 to 37.9 in adult, unspecified obesity type, unspecified whether serious comorbidity present Start: 06-21-2024 End: 06-21-2024 ambulatory SHAINA MUNROE Not Available Start: 06-13-2024 End: 06-13-2024 ambulatory DO Charan Casey Work Phone: [facility] Work Phone: Start: 06-13-2024 End: 06-13-2024 Patient encounter procedure DO Charan Casey Work Phone: [facility] Work Phone: Start: 06-08-2024 End: 06-08-2024 ambulatory DO Charan Casey Work Phone: [facility] Work Phone: Start: 06-08-2024 End: 06-08-2024 Patient encounter procedure DO Charan Casey Work Phone: [facility] Work Phone: Start: 05-31-2024 Non-patient / Non-visit DO Yeison Casey Work Phone: [facility] Work Phone: Start: 05-31-2024 End: 05-31-2024 Admission to same day surgery center DO Charan Casey Work Phone: [facility] Work Phone: Start: 05-31-2024 End: 05-31-2024 ambulatory DO Charan Casey Work Phone: [facility] Work Phone: Start: 05-23-2024 End: 05-23-2024 ambulatory DO Charan Casey Work Phone: [facility] Work Phone: Start: 05-23-2024 End: 05-23-2024 Patient encounter procedure DO Charanheather Masseybryn Work Phone: [facility] Work Phone: Start: 05-13-2024 Non-patient / Non-visit DO Yeison heather Casey Work Phone: [facility] Work Phone: Start: 04-19-2024 Non-patient / Non-visit DO Yeison heather Casey Work Phone: [facility] Work Phone: Start: 03-18-2024 Non-patient / Non-visit DO Yeison heather Casey Work Phone: [facility] Work Phone: Start: 03-17-2024 End: 03-17-2024 ambulatory DO Charanheather Masseybryn Work Phone: [facility] Work Phone: Start: 03-17-2024 End: 03-17-2024 Patient encounter procedure DO Charanheather Casey Work Phone: [facility] Work Phone: Start: 03-05-2024 End: 03-05-2024 ambulatory DO Charan Jacinto Work Phone: [facility] Work Phone: Start: 03-05-2024 End: 03-05-2024 Patient encounter procedure DO Charan Casey Work Phone: [facility] [place] Work Phone: Start: 03-01-2024 End: 03-01-2024 ambulatory DO Charan Masseys Work Phone: [facility] Work Phone: Start: 03-01-2024 End: 03-01-2024 Patient encounter procedure DO Charan Casey Work Phone: [facility] Work Phone: Start: 02-29-2024 End: 02-29-2024 ambulatory DO Charan Jacinto Work Phone: [facility] Work Phone: Start: 02-29-2024 End: 02-29-2024 Patient encounter procedure DO Charan Jacinto Work Phone: [facility] Start: 02-23-2024 Non-patient / Non-visit DO Yeison heather Jacinto Work Phone: [facility] Work Phone: Start: 02-22-2024 End: 02-22-2024 ambulatory ROSALINDA Morales [facility] Ambulatory Start: 02-22-2024 End: 02-22-2024 Office outpatient visit 25 minutes Rosalinda Torres MD Work Phone: [facility] Comment on above: Coronary artery dise ase, unspecified vessel or lesion type, unspecified whether angina present, unspecified whether [place] or transplanted heart (Primary Dx); Essential hypertension; 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; Hyperlipidemia, unspecified hyperlipidemia type; Obstructive sleep apnea syndrome; Class 2 obesity with body mass index (BMI) of 37.0 to 37.9 in adult, unspecified obesity type, unspecified whether serious comorbidity present; Insulin-requiring or dependent type II diabetes mellitus ([facility]) Start: 02-17-2024 Non-patient / Non-visit DO Yeison heather Jacinto Work Phone: [facility] Work Phone: Start: 02-12-2024 Non-patient / Non-visit DO Yeison heather Jacinto Work Phone: [facility] Work Phone: Start: 02-04-2024 End: 02-04-2024 Patient encounter procedure DO Charan Casey Work Phone: [facility] Work Phone: Start: 01-11-2024 End: 01-11-2024 ambulatory Charan Masseybryn Other [employer] Other Start: 01-11-2024 Telephone encounter Charan Casey [facility] [place] Start: 12-31-2023 End: 12-31-2023 ambulatory Charan Masseybryn Other [employer] Other Start: 12-31-2023 Telephone encounter Charan Casey [facility] [place] Start: 12-30-2023 End: 12-30-2023 Patient encounter procedure DO Charanheather Casey Work Phone: [facility]Ray [facility] Start: 12-30-2023 End: 12-30-2023 ambulatory DO Charanheather Casey Work Phone: [facility] Work Phone: Start: 12-30-2023 Office outpatient vi sit 15 minutes Charan Casey [facility] [place] Start: 12-30-2023 End: 12-30-2023 Patient encounter procedure DO Charanheather Casey Work Phone: On License Of [facility]- Start: 11-26-2023 End: 11-26-2023 ambulatory DO Charanheather Casey Work Phone: [facility] Work Phone: Start: 11-26-2023 End: 11-26-2023 Patient encounter procedure DO Charan Casey Work Phone: [facility]-Lab [facility] Start: 11-06-2023 End: 11-06-2023 ambulatory Charan Masseybryn Other [employer] Other Start: 11-06-2023 Telephone encounter Charan Casey [facility] [place] Start: 11-05-2023 Diabetic care education Renée [facility] Start: 11-05-2023 Encounter by computer link Renée Watts On License Of [facility] Start: 11-05-2023 End: 11-05-2023 ambulatory DO Charan Masseybryn Work Phone: [employer] Other Start: 11-05-2023 End: 11-05-2023 Discharged Recurring DO Charan Casey Work Phone: [facility]-Diabetes [facility] Work Phone: Start: 11-05-2023 Registered Recurring DO Charan Casey Work Phone: [facility] Work Phone: Start: 11-03-2023 End: 11-03-2023 ambulatory Charan Casey Other [employer] Other Start: 11-03-2023 Telephone encounter Charan Casey [facility] [place] Start: 10-28-2023 End: 10-28-2023 ambulatory Blas Ortiz Other [employer] Other Start: 10-28-2023 Office outpatient vi sit 15 minutes Blas Ortiz [facility] [place] Start: 10-28-2023 Telephone encounter Blas Ortiz [facility] [place] Start: 10-28-2023 End: 10-28-2023 Patient encounter procedure DO Charan Casey Work Phone: On License Of [facility] Work Phone: Start: 10-21-2023 End: 10-21-2023 ambulatory Blas [place] Other [employer] Other Start: 10-21-2023 Office outpatient vi sit 15 minutes Blas Bellamy [facility] [address] Start: 10-21-2023 End: 10-21-2023 Patient encounter procedure DO Charan Casey Work Phone: On License Of [facility] [place] Work Phone: Start: 10-19-2023 End: 10-19-2023 ambulatory Blas Erastoerika Other [employer] Other Start: 10-19-2023 Telephone encounter Blas Ortiz [facility] [place] Start: 10-07-2023 End: 10-07-2023 ambulatory Charan Caesy Other [employer] Other Start: 10-07-2023 Telephone encounter Charan Casey [facility] [place] Start: 10-06-2023 End: 10-06-2023 Admission to same day surgery center DO Charan Casey Work Phone: [facility]ive [facility] Work Phone: Start: 10-06-2023 End: 10-06-2023 ambulatory DO Charan Casey Work Phone: [facility] [employer] Work Phone: Start: 09-23-2023 End: 09-23-2023 ambulatory Blas Diana Other [employer] Other Start: 09-23-2023 Office outpatient vi sit 15 minutes Blas Ortiz [facility] [place] Start: 09-15-2023 End: 09-15-2023 ambulatory Elpidio Sole Other [employer] Other Start: 09-15-2023 Office outpatient vi sit 25 minutes Elpidio Sole [facility] Start: 09-14-2023 End: 09-14-2023 ambulatory DO Charan Casey Work Phone: [facility] [employer] Work Phone: Start: 09-14-2023 End: 09-14-2023 Patient encounter procedure DO Charan Casey Work Phone: [facility] Start: 09-08-2023 (Procedure) Eduardo Ortiz [facility] Start: 09-08-2023 End: 09-08-2023 Admission to same day surgery center DO Charan Jacinto Work Phone: [facility] Work Phone: Start: 09-08-2023 End: 09-08-2023 ambulatory DO Charanheather Masseybryn Work Phone: [facility] Work Phone: Start: 08-25-2023 End: 08-25-2023 ambulatory Imad Magdyad Other [employer] Other Start: 08-25-2023 Telephone encounter Yasmeen Treadwell [facility] [place] Start: 08-18-2023 End: 08-18-2023 ambulatory Charan Casey Other [employer] Other Start: 08-18-2023 Telephone encounter Charan Casey [facility] [place] Start: 08-17-2023 End: 08-17-2023 ambulatory Blas Ortiz Other [employer] Other Start: 08-17-2023 Office outpatient vi sit 25 minutes Blas Ortiz [facility] [place] Start: 08-17-2023 End: 08-17-2023 Patient encounter procedure DO Charan Casey Work Phone: [facility] [place] [facility] Start: 08-11-2023 Office outpatient vi sit 15 minutes Thierno Chatterjee [facility] Start: 08-11-2023 End: 08-11-2023 ambulatory DO Charanheather Masseybryn Work Phone: [facility] Work Phone: Start: 08-11-2023 End: 08-11-2023 Patient encounter procedure DO Charan Masseybryn Work Phone: [facility] Start: 08-05-2023 End: 08-05-2023 ambulatory Charan Casey Other [employer] Other Start: 08-05-2023 Office outpatient vi sit 25 minutes Charan Casey [facility] Start: 07-02-2023 End: 07-02-2023 ambulatory Charan Casey Other [employer] Other Start: 07-02-2023 Telephone encounter Charan Casey [facility] Start: 06-08-2023 End: 06-08-2023 ambulatory DO Charan Jacinto Work Phone: [facility] Work Phone: Start: 06-08-2023 End: 06-08-2023 Discharged Recurring DO Charan Jacinto Work Phone: [facility]-Physical Therapy [facility] Start: 05-28-2023 End: 05-28-2023 ambulatory Renée Watts Other [employer] Other Start: 05-28-2023 Diabetic care education Renée Watts On License Of [facility] Start: 05-28-2023 Registered Recurring DO Charan Casey Work Phone: [facility] Work Phone: Start: 05-19-2023 Office outpatient vi sit 25 minutes Charan Casey [facility] Start: 05-19-2023 End: 05-19-2023 ambulatory DO Charan Jacinto Work Phone: [facility] Work Phone: Start: 05-19-2023 End: 05-19-2023 Patient encounter procedure DO Charan Jacinto Work Phone: [facility] Start: 05-05-2023 End: 05-05-2023 ambulatory Charan Casey Other [employer] Other Start: 05-05-2023 Telephone encounter Charan Casey [facility] [place] Start: 04-30-2023 Office outpatient vi sit 25 minutes Charan Casey Work Phone: [facility] [address] DO Work Phone: Start: 04-30-[address] Charan Casey Facility:[id number] Start: 04-13-2023 End: 04-13-2023 ambulatory ACOSTA CASTRO Facility:H1 Start: 04-07-2023 End: 04-08-2023 ambulatory BLANKA OLGUIN Facility:H1 Start: 04-06-2023 Encounter for preprocedural laboratory examination ACOSTA CASTRO [facility] Start: 04-06-2023 End: 04-06-2023 ambulatory Charan Casey Other [employer] Other Start: 04-06-2023 Telephone encounter Charan Casey [facility] [place] Start: 03-31-2023 Office outpatient vi sit 25 minutes Charan Casey [facility] [place] Start: 03-31-2023 End: 04-01-[address] [facility] [employer] Other Start: 03-31-2023 End: 04-01-2023 Encounter for preprocedural laboratory examination ACOSTA CASTRO Facility:H1 Start: 03-26-2023 End: 03-26-2023 ambulatory Charan Casey Other [employer] Other Start: 03-26-2023 Telephone encounter Charan Casey [facility] [place] Start: 03-23-2023 End: 03-24-2023 ambulatory BLANKA OLGUIN Facility:H1 Start: 03-10-2023 End: 03-10-2023 ambulatory Elpidio Sole Other [employer] Other Start: 03-10-2023 Office outpatient vi sit 25 minutes Elpidio Sole [facility] Start: 03-06-2023 End: 03-06-2023 ambulatory DO Charan Casey Work Phone: [facility] Work Phone: Start: 03-06-2023 End: 03-06-2023 Patient encounter procedure DO Charan Casey Work Phone: [facility] Start: 03-04-2023 Office outpatient vi sit 15 minutes Federico Sepulveda [facility] Start: 03-04-2023 Telephone encounter Charan Casey [facility] Start: 03-04-2023 End: 03-04-2023 ambulatory DO Charan Casey Work Phone: [employer] Other Start: 03-04-2023 End: 03-04-2023 Patient encounter procedure DO Charan Jacinto Work Phone: [facility]-Sleep Lab Work Phone: Start: 03-03-2023 End: 03-04-2023 ambulatory BLANKA OLGUIN Facility:H1 Start: 02-17-2023 End: 02-18-2023 ambulatory BRODERICK FLOR Facility:H1 Start: 02-16-2023 End: 02-16-2023 ambulatory Charan Casey Other [employer] Other Start: 02-16-2023 Telephone encounter Charan Casey [facility] [place] Start: 02-05-2023 End: 02-05-2023 ambulatory Charan Casey Other [employer] Other Start: 02-05-2023 Telephone encounter Charan Casey [facility] [place] Start: 02-03-2023 End: 02-04-2023 ambulatory BRODERICK FLOR Facility:H1 Start: 01-27-2023 End: 01-27-2023 Patient encounter procedure DO Charan Casey Work Phone: [facility] Work Phone: Start: 01-27-2023 End: 01-27-2023 ambulatory DO Charan Casey Work Phone: [facility] Work Phone: Start: 01-27-2023 Immune Injection one Vaccine (Admin Chg) Renée Watts On License Of [facility] Start: 01-20-2023 End: 01-21-2023 ambulatory BLANKA OLGUIN Facility:H1 Start: 01-19-2023 End: 01-19-2023 ambulatory Charan Casey Other [employer] Other Start: 01-19-2023 Telephone encounter Charan Casey [facility] Start: 12-29-2022 End: 12-31-2022 ambulatory BLANKA OLGUIN Facility:H1 Start: 12-25-2022 Encounter for preprocedural cardiovascular examination [facility] Start: 12-25-2022 Encounter for preprocedural laboratory examination [facility] Start: 12-23-2022 End: 12-24-2022 ambulatory [facility] Facility:H1 Start: 12-23-2022 End: 12-24-2022 Encounter for preprocedural cardiovascular examination [facility] Facility:H1 Start: 11-26-2022 End: 11-27-2022 ambulatory BRODERICK FLOR Facility:H1 Start: 11-12-2022 End: 11-13-2022 ambulatory BLANKA OLGUIN Facility:H1 Start: 11-12-[address] Charan Casey Facility: Start: 10-28-2022 ([facility] INJ) [facility] Injection Eliud Bender manuela On License Of [facility] Start: 10-28-2022 End: 10-28-2022 ambulatory DO Charan Casey Work Phone: [facility] Work Phone: Start: 10-28-2022 End: 10-28-2022 Patient encounter procedure DO Charan Casey Work Phone: [facility] Start: 10-16-2022 ([facility] C Vac) [facility] Co vid Vaccine Renée Watts On License Of [facility] Start: 10-16-2022 ([facility] INJ) [facility] Injection Renée Mac On License Of [facility] Start: 10-16-2022 Telephone encounter Elpidio Sole [facility] Start: 10-16-2022 End: 10-16-2022 ambulatory DO Charan Casey Work Phone: [employer] Other Start: 10-16-2022 End: 10-16-2022 Patient encounter procedure DO Charanheather Masseybryn Work Phone: [facility] Start: 10-15-2022 End: 10-15-2022 ambulatory DO Charan Jacinto Work Phone: [facility] Work Phone: Start: 10-15-2022 End: 10-15-2022 Patient encounter procedure DO Charan Casey Work Phone: [facility]-MRI [address] Start: 10-13-2022 End: 10-13-2022 ambulatory DO Charan Casey Work Phone: [facility] Work Phone: Start: 10-13-2022 End: 10-13-2022 Patient encounter procedure DO Charan Casey Work Phone: [facility] [address] Start: 09-24-2022 End: 09-24-2022 ambulatory Elpidio Sole Other [employer] Other Start: 09-24-2022 Office outpatient vi sit 25 minutes Elpidio Sole [facility] [place] Start: 09-02-2022 End: 09-02-2022 ambulatory Charan Casey Other [employer] Other Start: 09-02-2022 Office outpatient vi sit 25 minutes Charan [facility] Start: 08-13-2022 End: 08-13-2022 Patient encounter procedure DO Charan Casey Work Phone: [facility] Start: 08-07-2022 End: 08-07-2022 ambulatory Charan Casey Other [employer] Other Start: 08-07-2022 Telephone encounter Charan Casey [facility] Start: 07-27-2022 End: 07-27-2022 Emergency department patient visit DO Charan Casey Work Phone: [facility]-Emergency Room Start: 07-16-2022 End: 07-16-2022 ambulatory Charan Casey Other [facility] [employer] Other Start: 07-16-2022 Telephone encounter Charan Casey [facility] Start: 07-02-2022 End: 07-02-2022 ambulatory Charan Casey Other [employer] [employer] Other Start: 07-02-2022 Telephone encounter Charan Casey [facility] Start: 05-08-2022 Office outpatient vi sit 25 minutes Charan Casey Work Phone: [place] [address] DO Work Phone: Start: 04-30-2022 End: 04-30-2022 ambulatory Federico Sepulveda Other [employer] Other Start: 04-30-2022 Office outpatient vi sit 10 minutes Federico Sepulveda [facility] Start: 04-14-2022 End: 04-14-2022 ambulatory Charan Casey Other [employer] [employer] Other Start: 04-14-2022 Office outpatient vi sit 25 minutes Charanheather Casey [facility] [place] Start: 04-07-2022 End: 04-07-2022 ambulatory Charanheather Casey Other [employer] Other Start: 04-07-2022 Telephone encounter Charan Casey [facility] [place] Start: 04-02-2022 End: 04-02-2022 ambulatory Charanheather Casey Other [employer] [employer] Other Start: 04-02-2022 Telephone encounter Charan Casey [facility] [place] Start: 03-31-2022 End: 03-31-2022 ambulatory Charanheather Casey Other [employer] [employer] Other Start: 03-31-2022 Telephone encounter Charanheather Casey [facility] [place] Start: 03-27-2022 [facility], Provider: Rosalinda Torres, Status: Pen, Time: 1:00 PM Charan Masseybryn Work Phone: [facility] [facility] DO Work Phone: Start: 03-26-2022 Chart Update Charan Louise Jacinto Work Phone: [facility] [address] DO Work Phone: Start: 03-13-2022 End: 03-13-2022 ambulatory Charan Jacinto Other [employer] [employer] Other Start: 03-13-2022 Telephone encounter Charanheather Casey [facility] [place] Start: 03-12-2022 Chart Update Charan Masseybryn Work Phone: [facility] [facility] DO Work Phone: Start: 03-07-2022 End: 03-07-2022 ambulatory Renée Watts Other [employer] Other Start: 03-07-2022 Telephone encounter Renée Nicole [facility] Start: 03-04-2022 End: 03-04-2022 ambulatory Charan Casey Other [employer] Other Start: 03-04-2022 Telephone encounter Charan aCsey [facility] Start: 02-20-2022 End: 02-20-2022 ambulatory Elpidio Sole Other [employer] Other Start: 02-20-2022 Office outpatient vi sit 25 minutes Elpidio Sole [facility] Start: 02-10-2022 End: 02-10-2022 ambulatory Charan Casey Other [employer] Other Start: 02-10-2022 Telephone encounter Charan Casey [facility] [place] Start: 02-07-2022 End: 02-07-2022 ambulatory Charan Casey Other [employer] Other Start: 02-07-2022 Office outpatient vi sit 25 minutes Charan Casey [facility] [place] Start: 02-05-2022 End: 02-05-2022 ambulatory Charan Casey Other [employer] Other Start: 02-05-2022 Telephone encounter Charan Casey [facility] [place] Start: 01-21-2022 End: 01-21-2022 ambulatory Charan Casey Other [employer] Other Start: 01-21-2022 Telephone encounter Charan Casey [facility] [place] Start: 12-31-2021 End: 12-31-2021 ambulatory Thierno Chatterjee Other [employer] Other Start: 12-31-2021 Office outpatient vi sit 15 minutes Thierno Chatterjee [facility] Start: 12-07-2021 End: 12-07-2021 ambulatory Charan Casey Other [employer] Other Start: 12-07-2021 Telephone encounter Charan Casey [facility] Start: 12-06-2021 End: 12-06-2021 ambulatory Charan Casey Other [employer] Other Start: 12-06-2021 Telephone encounter Charan Casey [facility] Start: 12-03-2021 End: 12-03-2021 ambulatory Charan Casey Other [employer] Other Start: 12-03-2021 Office outpatient vi sit 15 minutes Charan Casey [facility] Start: 10-01-2021 End: 10-01-2021 ambulatory Blas Ortiz Other [employer] Other Start: 10-01-2021 Office outpatient vi sit 25 minutes Blas Ortiz [facility] [place] End: 02-20-2022 Patient encounter status Charan Casey Work Phone: [facility] 250 DO Work Phone: Procedures Date Procedure Procedure Detail Performing Clinician Start: 06-30-2025 Anaerobe Identification Only Charan Casey DO Work Phone: Start: 06-05-2025 X-ray of both feet Charan Casey DO Work Phone: Start: 05-15-2025 Hemoglobin glycosylated a1c Shaina matthews DO Work Phone: Start: 01-23-2025 MRI of right shoulder Charan Casey DO Work Phone: Start: 12-09-2024 RSV (POC) Charan Casey DO Work Phone: Start: 12-08-2024 Plain chest X-ray Charan Casey DO Work Phone: Start: 2024 Local anesthetic lumbar facet joint nerve block Charan Casey DO Work Phone: Start: 10-25-2024 Plain X-ray of right shoulder Charan Casey DO Work Phone: Start: 10-17-2024 Hemoglobin glycosylated a1c Shaina matthews DO Work Phone: Start: 09-20-2024 Local anesthetic sacral epidural block DO Charan Casey Work Phone: Start: 09-07-2024 Screening mammography of bilateral breasts DO Charan Casey Work Phone: Start: 05-31-2024 Injection of local anesthetic into sacroiliac joint DO Charan Casey Work Phone: Start: 03-05-2024 MRI of lumbar spine with contrast DO Charan Casey Work Phone: Start: 02-29-2024 Urine culture DO Charan Casey Work Phone: Start: 12-30-2023 Plain chest X-ray DO Charan Casey Work Phone: Start: 12-04-2023 History of placement of stent for coronary artery disease 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 Rosalinda Torres MD Work Phone: Start: 10-12-2023 History of cholecystectomy S/P laparoscopic cholecystectomy Shaina Munroe DO Work Phone: Start: 10-06-2023 Screening colonoscopy DO Charan Casey Work Phone: Start: 10-06-2023 Colonoscopy Rosalinda Torres MD Work Phone: Start: 09-08-2023 Injection of local anesthetic into sacroiliac joint DO hCaran Casey Work Phone: Start: 08-17-2023 Plain X-ray of right hip DO Charan Casey Work Phone: Start: 08-11-2023 X-ray of lumbar spine, six views including bending views DO Charan Casey Work Phone: Start: 05-19-2023 Plain chest X-ray DO Charan Casey Work Phone: Start: 05-19-2023 Radiography of thoracic spine DO Charan galvan Work Phone: Start: 05-19-2023 X-ray of lumbar spine, four or more views DO Charan Casey Work Phone: Start: 03-06-2023 Urine culture DO Charan Casey Work Phone: Start: 10-15-2022 MRI of right ankle DO Charan Casey Work Phone: Start: 10-15-2022 MRI of right foot DO Charan Casey Work Phone: Start: 10-13-2022 MRI of left ankle DO Charan Casey Work Phone: Start: 10-13-2022 MRI of left foot DO Charan Casey Work Phone: Start: 10-13-2022 CT of bilateral feet DO Charan Casey Work Phone: Start: 10-13-2022 Pulse volume recorder pneumoplethysmography DO Charan Casey Work Phone: Start: 07-27-2022 X-ray of left foot DO Charan Casey Work Phone: Arthroplasty of knee Charan Dani Casey Work Phone: Cardiac catheterization Yeisona n P Jacinto Work Phone: section Charan P Bryson s Work Phone: Cholecystectomy Charan P Jacinto Work Phone: History of placement of stent for coronary artery disease 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 Charan Dani Casey Work Phone: Comment on above: LAD February 2022; History of placement of stent for coronary artery disease 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 Rosalinda Torres MD Work Phone: History of placement of stent for coronary artery disease 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 Rosalinda Torres MD Work Phone: Operative procedure on ankle Charan Casey Work Phone: Operative procedure on foot Charan Casey Work Phone: Parathyroidectomy Charan Buck ns Work Phone: Procedure on back Charan Buck ns Work Phone: Procedure on neck Charan Buck ns Work Phone: Total colonoscopy Charan Buck ns Work Phone: Comment on above: [id number]; Plan of Treatment Date Care Activity Detail Author Start: 10-06-2033 Screening for malignant neoplasm of colon [facility] Start: 2025 Pneumococcal Vaccine: Pediatrics (0 to 5 Years) and At-Risk Patients (6 to 64 Years) (3 - PPSV23 or PCV20) Pneumococcal Vaccine: Pediatrics (0 to 5 Years) and At-Risk Patients (6 to 64 Years) (3 - PPSV23 or PCV20) [facility] Start: 2025 Pneumococcal Vaccine: Pediatrics (0 to 5 Years) and At-Risk Patients (6 to 64 Years) (3 of 3 - PPSV23 or PCV20) Pneumococcal Vaccine: Pediatrics (0 to 5 Years) and At-Risk Patients (6 to 64 Years) (3 of 3 - PPSV23 or PCV20) [facility] Start: 09-05-2025 Glaucoma screening Diabetes: Retinopathy Screening [facility] Start: 08-15-2025 End: 08-15-2025 Patient encounter procedure 08/15/2025 9:45 AM EDT Office Visit [facility] [address] [place] [address] Shaina Munroe, [address] [place] [address] [facility] [address] Start: 07-31-2025 Influenza vaccination Influenza Vaccine (Season Ended) [facility] Start: 03-28-2025 End: 03-28-2025 Patient encounter procedure 03/28/2025 8:50 AM EDT Office Visit [place] [id number] [place] [address] Rosalinda Torres MD [address] [facility] [address], [address] [place] [address] [facility] Start: 02-14-2025 End: 02-14-2025 Patient encounter procedure 02/14/2025 9:30 AM EDT Office Visit [facility] [address] [place] [id number] Shaina Munroe, [address] [place] [address] [facility] [address] Start: 01-23-2025 MR Shoulder - right WO contrast [facility] Start: 01-23-2025 MRI of right shoulder MR shoulder RT wo con [facility] Start: 01-17-2025 Hemoglobin A1c measurement Diabetes: Hemoglobin A1C [facility] Start: 2024 [facility] Start: 09-20-2024 [facility] Start: 08-25-2024 End: 08-25-2024 Patient encounter procedure 08/25/2024 8:40 AM EDT Office [place] [address] [address] [facility] [address] [place] [address] Rosalinda Torres MD [address] [facility] [address], [address] [place] [address] [facility] Start: 07-31-2024 COVID-19 Vaccine ( season) COVID-19 Vaccine ( season) [facility] Start: 07-31-2024 Influenza vaccination Influenza Vaccine (#1) [facility] Start: 05-31-2024 [facility] Start: 02-29-2024 Bacteria identified in Urine by Culture [facility] Start: 02-29-2024 Urine culture Urine Culture [facility] Start: 11-10-2023 FUV, Provider: Rosalinda Torres, Status: Pen, Time: 9:10 AM [facility]UV, Provider: Rosalinda Torres, Status: Pen, [facility]: 9:10 [facility] Work [facility]: Start: 10-06-2023 [facility] Start: 09-08-2023 [facility] Start: 07-31-2023 COVID-19 Vaccine () COVID-19 Vaccine () [facility] Start: 07-31-2023 Influenza vaccination Influenza Vaccine (#1) [facility] Start: 03-06-2023 Bacteria identified in Urine by Culture [facility] Start: 11-12-2022 FUV, Provider: Rosalinda Torres, Status: Pen, Time: 9:00 AM [facility]UV, Provider: Rosalinda Torres, Status: Pen, Time: 9:00 AM [facility] Work Phone: Start: 09-08-2022 DTaP/Tdap/Td Vaccines (2 - Td or Tdap) DTaP/Tdap/Td Vaccines (2 - Td or Tdap) [facility] Start: 03-27-2022 [facility], Provider: Rosalinda Torres, Status: Pen, Time: 1:00 PM [facility], Status: Pen, Time: 1:00 PM [facility] Work Phone: Start: 03-14-2022 FUV, Provider: Rosalinda Torres, Status: Pen, Time: 1:50 PM [facility]UV, Provider: Rosalinda Torres, Status: Pen, Time: 1:50 PM [facility] Work Phone: Start: 2020 RSV patients and/or patients aged 60+ years (1 - 1-dose 60+ series) RSV patients and/or patients aged 60+ years (1 - 1-dose 60+ series) [facility] Start: 2000 Screening for malignant neoplasm of breast Mammogram [facility] Start: 1990 Screening for malignant neoplasm of cervix [facility] Start: 1982 DTaP/Tdap/Td Vaccines (1 - Tdap) DTaP/Tdap/Td Vaccines (1 - Tdap) [facility] Start: 1981 Screening for malignant neoplasm of cervix [facility] Start: 1979 Urine screening for protein Diabetes: Urine Protein Screening [facility] Start: 1978 Hepatitis C screening Hepatitis C Screening [facility] Start: 1970 Diabetic foot examination Diabetes: Foot Exam [facility] Start: 1970 Glaucoma screening Diabetes: Retinopathy Screening [facility] Start: 1961 MMR Vaccines (1 of 1 - Standard series) MMR Vaccines (1 of 1 - Standard series) [facility] Start: 1960 Hemoglobin A1c measurement Diabetes: Hemoglobin A1C [facility] Start: 1960 HIV screening HIV Screening [facility] Start: 1960 Lipid panel Lipid Panel [facility] Start: 1960 Medicare Annual Wellness (AWV) Medicare Annual Wellness (AWV) [facility] Start: 1960 Medicare Annual Wellness Visit Medicare Annual Wellness Visit (AWV) [facility] Start: 1960 Screening for malignant neoplasm of colon [facility] Start: 1960 Yearly Adult Physical Yearly Adult Physical [facility] Comprehensive metabo lic 1999 panel - Serum or Plasma [facility] MR Lumbar spine WO a nd W contrast IV [facility] MR Shoulder - right WO contrast [facility] Patient Education [facility] Work Phone: Patient referral [facility] Work Phone: Renal function 1999 panel - Serum or Plasma [facility] Rheumatoid factor [Units/volume] in Serum or Plasma [facility] Immunizations Immunization Date Immunization Notes Care Provider Christian alfonso 01-27-2023 zoster vaccine recombinant Renée Fitt Other [facility] 10-28-2022 zoster vaccine recombinant Eliud Rod Other [facility] 10-16-2022 influenza virus vaccine, unspecified formulation DO Charan Casey Work Phone: [facility] 10-16-2022 influenza, seasonal, injectable Rosalinda Torres MD Work Phone: [facility] Work Phone: 10-16-2022 Moderna SARS-CoV-2 Vaccination Rosalinda Torres MD Work Phone: [facility] Work Phone: 10-16-2022 COVID-19 Moderna (BIvalent) Renée Fitt Other [facility] 10-16-2022 influenza, high dose seasonal, preservative-free Renée Fitt Other [employer] Other 10-16-2022 influenza, injectabl e, quadrivalent, preservative free Renée Fitt Other [employer] Other 09-26-2021 Moderna COVID-19 Vaccine 100 MCG/0.5ML Intramuscular Suspension Charan Casey Work Phone: [facility] 09-25-2021 Moderna SARS-CoV-2 Booster Vaccination Shaina Munroe DO Work Phone: [facility] 08-30-2021 seasonal influenza, intradermal, preservative free Charan Casey Work Phone: [place] [address] DO Work Phone: 12-25-2020 COVID-19 Vaccine Moderna - Documentation Purposes Only Blas Ortiz Other [facility] 11-28-2020 Moderna COVID-19 Vaccine 100 MCG/0.5ML Intramuscular Suspension Charan Casey Work Phone: [facility] 08-30-2019 influenza virus vaccine, unspecified formulation Charan Casey Work Phone: [facility] DO Work Phone: 08-30-2019 influenza, injectabl e, quadrivalent, preservative free Shaina Petznick DO Work Phone: [facility] 08-30-2019 influenza, seasonal, injectable Blas Maurererika Other [facility] 08-30-2018 influenza, seasonal, injectable Blas Erastoerika Other [facility] 08-30-2018 influenza, seasonal, injectable, preservative free Shaina Petznick DO Work Phone: [facility] 12-02-2016 influenza virus vaccine, unspecified formulation DO Charan Csaey Work Phone: [facility] 12-02-2016 influenza, seasonal, injectable, preservative free Charan Casey Work Phone: [place] [address] DO Work Phone: 12-02-2016 pneumococcal conjuga te vaccine, 13 valent Blas Ortiz Other [facility] 12-02-2016 influenza, high dose seasonal, preservative-free Blas Ortiz Other [facility] [employer] Other 12-02-2016 influenza, injectabl e, quadrivalent, preservative free Renée Watts Other [facility] [employer] Other 11-30-2016 pneumococcal polysaccharide vaccine, 23 valent Charan Casey [facility]: [facility] Work Phone: 10-15-2016 pneumococcal polysaccharide vaccine, 23 valent Charan Casey Work Phone: [facility] 09-08-2012 influenza virus vaccine, unspecified formulation DO Charanheather Masseybryn Work Phone: [facility] 09-08-2012 tetanus toxoid, reduced diphtheria toxoid, and acellular pertussis vaccine, adsorbed Blas Ortiz Other [facility] 09-08-2012 influenza virus vaccine, split virus (incl. purified surface antigen) Blas Ortiz Other [facility] [employer] Other influenza virus vaccine, unspecified formulation Charan Casey Work Phone: [place] [address] DO Work Phone: Comment on above: 2009 NEGATED: Highlighted row has not occurred!09-07-2017 influenza, injectable,quadrivalen t, preservative free, pediatric Blas Ortiz Other [facility] [employer] Other Payers Date Payer Category Payer Unknown [id number] 2024 Medicare [employer] MEDICARE [employer] MEDICARE [id number] 2024-Present [address] [place] [address] [id number] 2024 Medicare (Managed Care) [id number]. [id number] 2024 Medicare [id number] 2022 Unknown 1960 Unknown [id number] 2.16.840.1.354615.3.579.2. 593 1960 Unknown [id number] 2.16.840.1.980565.3.579.2. 593 1960 Unknown [id number] 2.16.840.1.658325.3.579.2. 593 1960 Unknown [id number] 2.16.840.1.913007.3.579.2. 593 1960 Unknown [id number] 2.16.840.1.618932.3.579.2. 593 1960 Unknown [id number] 2.16.840.1.405879.3.579.2. 593 1960 Unknown [id number] 2.16.840.1.088760.3.579.2. 593 1960 Unknown [id number] 2.16.840.1.929569.3.579.2. 593 1960 Unknown [id number] 2.16.840.1.374009.3.579.2. 593 1960 Unknown [id number] 2.16.840.1.234543.3.579.2. 593 1960 Unknown [id number] 2.16.840.1.131036.3.579.2. 593 1960 Unknown [id number] 2.16.840.1.362172.3.579.2. 593 1960 Unknown [id number] 2.16.840.1.066816.3.579.2. 356 1960 Unknown [id number] 2.16.840.1.345086.3.579.2. 356 1960 Unknown [id number] 2.16.840.1.341222.3.579.2. 1244 1960 Unknown [id number] 2.16.840.1.940711.3.579.2. 1259 1960 Unknown [id number] 2.16.840.1.615274.3.579.2. 1259 1960 Unknown [id number] 2.16.840.1.272535.3.579.2. 1259 1960 Unknown [id number] 2.16.840.1.130755.3.579.2. 1259 1959 Unknown [id number] 2.16.840.1.296942.19 Medicare Medicare [id number] Self-pay Self Pay [id number] Social History Date Type Detail Facility Start: 12-04-2023 End: 02-08-2024 Occasional caffeine consumption Occasional caffeine consumption [facility] Comment on above: Coffee; Start: 12-04-2023 End: 02-08-2024 Sex Assigned At [facility] Start: 07-27-2022 End: 01-18-2025 Tobacco smoking status NHIS Never smoked tobacco (finding) [facility] Start: 1960 Sex Assigned At Female F [facility] Start: 05-19-2023 End: 12-04-2023 Tobacco use and exposure Smokeless tobacco non-user [facility] Work Phone: Start: 12-04-2023 End: 05-15-2025 Alcohol intake Lifetime non-drinker (finding) [facility] Work Phone: Start: 1960 [facility]: Start: 02-12-2024 End: 08-25-2024 Exposure to SARS-CoV-2 (event) Not sure [facility] Start: 10-19-2024 End: 04-11-2025 Sex Female (finding) [facility] Do you belong to any clubs or organizations such as gnosticist groups, unions, fraternal or athletic groups, or school groups? Yes [facility] Are you now , , , , never or living with a partner? [facility] How often to you hav e a drink containing alcohol? Never [facility] How many standard dr inks containing alcohol do you have on a typical day? Patient does not drink [facility] Do you feel stress - tense, restless, nervous, or anxious, or unable to sleep at night because your mind is troubled all the time - these days [OSQ] To some extent [facility] The food that (I/we) bought just didn't last, and (I/we) didn't have money to get more. Never true [facility] In the past 12 month s, was there a time when you were not able to pay the mortgage or rent on time? No [facility] Start: 05-22-2023 Alcohol Comment caffeine: 1-2 cups per day coffee [facility] Start: 05-20-2023 Gender identity Identifies as female gender (finding) [facility] Medical Equipment Procedure Code Equipment Code Equipment Origin al Text Equipment Identifier Dates Fusion, spine, lumbar, XLIF LATERAL STD 1 LEVEL CONSTRUCT FDA Start: 07-25-2020 Fusion, spine, lumbar, XLIF Orthopaedic bone screw, non-bioabsorbable, non-sterile [id number] FDA Start: 07-25-2020 Fusion, spine, lumbar, XLIF Bone-screw internal spinal fixation system, non-sterile [id number] FDA Start: 07-25-2020 Fusion, spine, lumbar, XLIF STRATOFUSE DBM [id number] FDA Start: 07-25-2020 Fusion, spine, lumbar, XLIF TIMBERLINE INTERBODY FDA Start: 07-25-2020 Fusion, spine, lumbar, XLIF Spinal fusion graft kit [id number] FDA Start: 07-25-2020 Fusion, spine, lumbar, XLIF Bone-screw internal spinal fixation system, non-sterile [id number] FDA Start: 07-25-2020 Fusion, spine, lumbar, XLIF [...] lumbar, XLIF TIMBERLINE INTERBODY FDA Start: 07-25-2020 [id number] Start: 08-11-2013 End: 05-15-2025 Drug-eluting coronary artery stent, [id number] lymer-coated [id number] FDA Start: 03-27-2022 Femoral artery closure plug/patch, synthetic polymer ([id number] FDA Start: 03-27-2022 Pen Needle, Diab etic [...] Needle) 31 gauge x 3/16 needle Start: 09-12-2024 Pen Needle, Diab etic (Ulticare Pen Needle) 31 gauge x 3/16 needle Start: 05-13-2024 End: 05-13-2024 Pen Needle, Diab etic (Ulticare Pen Needle) 31 gauge x 3/16 needle Start: 05-13-2024 End: 09-12-2024 Pen Needle, Diab etic (Ulticare Pen Needle) 31 gauge x 3/16 needle Start: 09-12-2024 Pen Needle, Diab etic 31 gauge x 5/16 needle Start: 09-12-2024 Pen Needle, Diab etic (Ulticare Pen Needle) 31 gauge x 3/16 needle Start: 05-13-2024 End: 05-13-2024 Pen Needle, Diab etic (Ulticare Pen Needle) 31 gauge x 3/16 needle Start: 05-13-2024 End: 09-12-2024 Pen Needle, Diab etic 31 gauge x 5/16 needle Start: 09-12-2024 End: 09-12-2024 Pen Needle, Diab etic (Ulticare Pen Needle) 31 gauge x 3/16 needle Start: 09-12-2024 Pen Needle, Diab etic 31 gauge x 5/16 needle Start: 09-12-2024 Pen Needle, Diab etic (Ulticare Pen Needle) 31 gauge x 3/16 needle Start: 05-13-2024 End: 05-13-2024 Pen Needle, Diab etic (Ulticare Pen Needle) 31 gauge x 3/16 needle Start: 05-13-2024 End: 09-12-2024 Pen Needle, Diab etic 31 gauge x 5/16 needle Start: 09-12-2024 End: 09-12-2024 Pen Needle, Diab etic (Ulticare Pen Needle) 31 gauge x 3/16 needle Start: 09-12-2024 Pen Needle, Diab etic 31 gauge x 5/16 needle Start: 09-12-2024 Pen Needle, Diab etic (Ulticare Pen Needle) 31 gauge x 3/16 needle Start: 05-13-2024 End: 05-13-2024 Pen Needle, Diab etic (Ulticare Pen Needle) 31 gauge x 3/16 needle Start: 05-13-2024 End: 09-12-2024 Pen Needle, Diab etic 31 gauge x 5/16 needle Start: 09-12-2024 End: 09-12-2024 Pen Needle, Diab etic (Ulticare Pen Needle) 31 gauge x 3/16 needle Start: 09-12-2024 Pen Needle, Diab etic 31 gauge x 5/16 needle Start: 09-12-2024 Pen Needle, Diab etic (Ulticare Pen Needle) 31 gauge x 3/16 needle Start: 05-13-2024 End: 05-13-2024 Pen Needle, Diab etic (Ulticare Pen Needle) 31 gauge x 3/16 needle Start: 05-13-2024 End: 09-12-2024 Pen Needle, Diab etic 31 gauge x 5/16 needle Start: 09-12-2024 End: 09-12-2024 Pen Needle, Diab etic (Ulticare Pen Needle) 31 gauge x 3/16 needle Start: 09-12-2024 Pen Needle, Diab etic 31 gauge x 5/16 needle Start: 09-12-2024 Pen Needle, Diab etic (Ulticare Pen Needle) 31 gauge x 3/16 needle Start: 05-13-2024 End: 05-13-2024 Pen Needle, Diab etic (Ulticare Pen Needle) 31 gauge x 3/16 needle Start: 05-13-2024 End: 09-12-2024 Pen Needle, Diab etic 31 gauge x 5/16 needle Start: 09-12-2024 End: 09-12-2024 Pen Needle, Diab etic (Ulticare Pen Needle) 31 gauge x 3/16 needle Start: 09-12-2024 Pen Needle, Diab etic 31 gauge x 5/16 needle Start: 09-12-2024 Pen Needle, Diab etic (Ulticare Pen Needle) 31 gauge x 3/16 needle Start: 05-13-2024 End: 05-13-2024 Pen Needle, Diab etic (Ulticare Pen Needle) 31 gauge x 3/16 needle Start: 05-13-2024 End: 09-12-2024 Pen Needle, Diab etic 31 gauge x 5/16 needle Start: 09-12-2024 End: 09-12-2024 Pen Needle, Diab etic (Ulticare Pen Needle) 31 gauge x 3/16 needle Start: 09-12-2024 Pen Needle, Diab etic 31 gauge x 5/16 needle Start: 09-12-2024 Pen Needle, Diab etic (Ulticare Pen Needle) 31 gauge x 3/16 needle Start: 05-13-2024 End: 05-13-2024 Pen Needle, Diab etic (Ulticare Pen Needle) 31 gauge x 3/16 needle Start: 05-13-2024 End: 09-12-2024 Pen Needle, Diab etic 31 gauge x 5/16 needle Start: 09-12-2024 End: 09-12-2024 Pen Needle, Diab etic (Ulticare Pen Needle) 31 gauge x 3/16 needle Start: 09-12-2024 Pen Needle, Diab etic 31 gauge x 5/16 needle Start: 09-12-2024 Pen Needle, Diab etic (Ulticare Pen Needle) 31 gauge x 3/16 needle Start: 05-13-2024 End: 05-13-2024 Pen Needle, Diab etic (Ulticare Pen Needle) 31 gauge x 3/16 needle Start: 05-13-2024 End: 09-12-2024 Pen Needle, Diab etic 31 gauge x 5/16 needle Start: 09-12-2024 End: 09-12-2024 Pen Needle, Diab etic (Ulticare Pen Needle) 31 gauge x 3/16 needle Start: 09-12-2024 Pen Needle, Diab etic 31 gauge x 5/16 needle Start: 09-12-2024 Pen Needle, Diab etic (Ulticare Pen Needle) 31 gauge x 3/16 needle Start: 05-13-2024 End: 05-13-2024 Pen Needle, Diab etic (Ulticare Pen Needle) 31 gauge x 3/16 needle Start: 05-13-2024 End: 09-12-2024 Pen Needle, Diab etic 31 gauge x 5/16 needle Start: 09-12-2024 End: 09-12-2024 Pen Needle, Diab etic (Ulticare Pen Needle) 31 gauge x 3/16 needle Start: 09-12-2024 Pen Needle, Diab etic 31 gauge x 5/16 needle Start: 09-12-2024 Pen Needle, Diab etic (Ulticare Pen Needle) 31 gauge x 3/16 needle Start: 05-13-2024 End: 05-13-2024 Pen Needle, Diab etic (Ulticare Pen Needle) 31 gauge x 3/16 needle Start: 05-13-2024 End: 09-12-2024 Pen Needle, Diab etic 31 gauge x 5/16 needle Start: 09-12-2024 End: 09-12-2024 Pen Needle, Diab etic (Ulticare Pen Needle) 31 gauge x 3/16 needle Start: 09-12-2024 Pen Needle, Diab etic 31 gauge x 5/16 needle Start: 09-12-2024 Pen Needle, Diab etic (Ulticare Pen Needle) 31 gauge x 3/16 needle Start: 05-13-2024 End: 05-13-2024 Pen Needle, Diab etic (Ulticare Pen Needle) 31 gauge x 3/16 needle Start: 05-13-2024 End: 09-12-2024 Pen Needle, Diab etic 31 gauge x 5/16 needle Start: 09-12-2024 End: 09-12-2024 Pen Needle, Diab etic (Ulticare Pen Needle) 31 gauge x 3/16 needle Start: 09-12-2024 Pen Needle, Diab etic 31 gauge x 5/16 needle Start: 09-12-2024 Pen Needle, Diab etic (Ulticare Pen Needle) 31 gauge x 3/16 needle Start: 05-13-2024 End: 05-13-2024 Pen Needle, Diab etic (Ulticare Pen Needle) 31 gauge x 3/16 needle Start: 05-13-2024 End: 09-12-2024 Pen Needle, Diab etic 31 gauge x 5/16 needle Start: 09-12-2024 End: 09-12-2024 Pen Needle, Diab etic (Ulticare Pen Needle) 31 gauge x 3/16 needle Start: 09-12-2024 Pen Needle, Diab etic 31 gauge x 5/16 needle Start: 09-12-2024 Pen Needle, Diab etic (Ulticare Pen Needle) 31 gauge x 3/16 needle Start: 05-13-2024 End: 05-13-2024 Pen Needle, Diab etic (Ulticare Pen Needle) 31 gauge x 3/16 needle Start: 05-13-2024 End: 09-12-2024 Pen Needle, Diab etic 31 gauge x 5/16 needle Start: 09-12-2024 End: 09-12-2024 Pen Needle, Diab etic (Ulticare Pen Needle) 31 gauge x 3/16 needle Start: 09-12-2024 Pen Needle, Diab etic 31 gauge x 5/16 needle Start: 09-12-2024 Pen Needle, Diab etic (Ulticare Pen Needle) 31 gauge x 3/16 needle Start: 05-13-2024 End: 05-13-2024 Pen Needle, Diab etic (Ulticare Pen Needle) 31 gauge x 3/16 needle Start: 05-13-2024 End: 09-12-2024 Pen Needle, Diab etic 31 gauge x 5/16 needle Start: 09-12-2024 End: 09-12-2024 Pen Needle, Diab etic (Ulticare Pen Needle) 31 gauge x 3/16 needle Start: 09-12-2024 Pen Needle, Diab etic 31 gauge x 5/16 needle Start: 09-12-2024 Pen Needle, Diab etic (Ulticare Pen Needle) 31 gauge x 3/16 needle Start: 05-13-2024 End: 05-13-2024 Pen Needle, Diab etic (Ulticare Pen Needle) 31 gauge x 3/16 needle Start: 05-13-2024 End: 09-12-2024 Pen Needle, Diab etic 31 gauge x 5/16 needle Start: 09-12-2024 End: 09-12-2024 Pen Needle, Diab etic (Ulticare Pen Needle) 31 gauge x 3/16 needle Start: 09-12-2024 Pen Needle, Diab etic 31 gauge x 5/16 needle Start: 09-12-2024 Pen Needle, Diab etic (Ulticare Pen Needle) 31 gauge x 3/16 needle Start: 05-13-2024 End: 05-13-2024 Pen Needle, Diab etic (Ulticare Pen Needle) 31 gauge x 3/16 needle Start: 05-13-2024 End: 09-12-2024 Pen Needle, Diab etic 31 gauge x 5/16 needle Start: 09-12-2024 End: 09-12-2024 Pen Needle, Diab etic (Ulticare Pen Needle) 31 gauge x 3/16 needle Start: 09-12-2024 Pen Needle, Diab etic 31 gauge x 5/16 needle Start: 09-12-2024 Pen Needle, Diab etic (Ulticare Pen Needle) 31 gauge x 3/16 needle Start: 05-13-2024 End: 05-13-2024 Pen Needle, Diab etic (Ulticare Pen Needle) 31 gauge x 3/16 needle Start: 05-13-2024 End: 09-12-2024 Pen Needle, Diab etic 31 gauge x 5/16 needle Start: 09-12-2024 End: 09-12-2024 Pen Needle, Diab etic (Ulticare Pen Needle) 31 gauge x 3/16 needle Start: 09-12-2024 Pen Needle, Diab etic 31 gauge x 5/16 needle Start: 09-12-2024 Pen Needle, Diab etic (Ulticare Pen Needle) 31 gauge x 3/16 needle Start: 05-13-2024 End: 05-13-2024 Pen Needle, Diab etic (Ulticare Pen Needle) 31 gauge x 3/16 needle Start: 05-13-2024 End: 09-12-2024 Pen Needle, Diab etic 31 gauge x 5/16 needle Start: 09-12-2024 End: 09-12-2024 Goals Date Patient Goal Desired Activity /State Functional Status Date Assessment Result Facility 05-15-2025 Patient [facility] ionnaire 2 item (PHQ-2) [Reported] [facility] Clinical Notes 12-31-2014 to 05-31-2025 Note Date & Type Note Facility 05-31-2025 Evaluation note Diagnosis Onset Date Resolution Chronic pain acute May 31 8:03am Sacroiliitis, not elsewhere classified acute May 31 025 8:03am Trochanteric bursitis acute May 8:03am [facility] Work Phone: 1(449) 882-184307-02-2025 Evaluation note* Diagnosis Onset Date Resolution Status Admit Date Chronic pain acute May 31 8:03am Sacroiliitis, not elsewhere classified acute May 31, 2025 8 :03am Trochanteric bursitis acute May 8:03am Chronic pain acute June 21, 2 025 9:03am Sacroiliitis, not elsewhere classified acute June 21, 2025 9:03am Trochanteric bursitis acute May 9:03am [facility] Work Phone: 1(330) 175-847707-02-2025 Evaluation note* Diagnosis Onset Date Resolution Status Admit Date Chronic pain acute May 31 8:03am Sacroiliitis, not elsewhere classified acute May 31, 2025 8 :03am Trochanteric bursitis acute May 8:03am Chronic pain acute June 21, 2 025 9:03am Sacroiliitis, not elsewhere classified acute June 21, 2025 9:03am Trochanteric bursitis acute May 9:03am Diabetic foot ulcer associat ed with type 2 diabetes mellitus, with fat laye acute July 12 7:36am MRSA bacteremia acute July 122024 7:36am Oral thrush acute July 12, 2025 7:36am [facility] Work Phone: 1(695) 241-310206-16-2025 History of Present illness Narrative* Shaina Munroe DO - 05/15/2025 11:07 AM EDTAssociated Problem(s): Type 2 diabetes mellitus with peripheral neuropathy (HCC) During the appointment today all pertinent labs, imaging, health maintenance, and glucose readings were reviewed. Encouraged to check blood glucose throughout the day with some fasting and some PP readings. They are to bring their glucose meter/cgm in to all appointments. All of the patients questions, treatment options, and current care plan and goals were discussed. Acopy of this along with pertinent instructions were given to the patient at the end of the appointment. The patient voices understanding of all of this and is to call in between appointments if they have any problems or questions. Rita Cobb control is stable overall. , The patient is wearing their cgm on a daily basis and making decisions in regards to adjusting insulin daily as well for at least the last 60 days , Instructions given today include: Insulin instructions and Dietary education. Will increase insulin at breakfast and dinner. * Shaina Munroe DO - 05/15/2025 10:45 AM EDT Images from the original note were not included. Rita Cobb is a 64 y.o. female presents with chief complaint of Diabetes HPI: Diabetes Mellitus Follow-up: Rita Cobb is here for follow-up evaluation of diabetes mellitus. The initial diagnosis of diabetes was made in 2006 Diabetes complications: retinopathy and peripheral neuropathy She has been checking her blood glucose with a [employer] G7 CGM - linked. Bg hold steady overnight, tends to rise after breakfast and dinner Last A1c: 8.0 (02/14/25) Last eye exam: 04/20/2024 Current concerns include: BG levels: Last week or so has been better, has has some spikes here and there. Father recently passed- still dealing with a lot of stress with that and her mom. Has lost almost 8 pounds since last visit. Received a letter from [employer] stating that Humalog Diet: low carb, increase protein Drinks: water, unsweetened tea, couple times a month coffee with sweetened creamer- not much recently Exercise: not much, walking on occasion. PT for the past 2 months Hypoglycemia: Diabetes Associated symptoms include fatigue. Pertinent negatives for diabetes include no chest pain, no polydipsia, no polyphagia and no polyuria. 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) Long-term insulin use ([facility]) Spondylolisthesis at L3-L4 level S/P laparoscopic cholecystectomy Other hammer toe(s) (acquired), left foot Chronic foot ulcer (HCC) Carpal tunnel syndrome of right wrist Class 2 severe obesity with serious comorbidity and body mass index (BMI) of 35.0 to 35.9 in adult ([facility]) Type 2 diabetes mellitus with both eyes affected by mild nonproliferative retinopathy without macular edema, with long-term current use of insulin ([facility]) Social History Tobacco Use Smoking status: Never Smokeless tobacco: Never Substance Use Topics Alcohol use: Never Comment: caffeine: 1-2 cups per day coffee Drug use: Never Allergies Allergen Reactions Levofloxacin GI intolerance Head ache Erythromycin Unknown Erythromycin Base Nausea Only Synopsis SmartLink 05/15/2025 04/25/2025 00:00 02/15/2025 Antidiabetic medications Insulin Degludec 60 Units Daily SC 60 Units Daily SC 60 Units Daily SC Insulin Lispro 3 units breakfast and dinner (100 UNIT/ML SOPN) -Discontinued (Dose adjustm) Patient taking differently: 3-5 units breakfast and dinner as of 02/14/2025 9:45 AM Insulin Lispro 8 units breakfast, 12 units lunch/dinner plus correction 1:30 > 150 mg/dl (max daily 100 units) (100 UNIT/ML SOPN)-Discontinued (Reorder) 8 units breakfast, 12 units lunch/dinner plus correction 1:30 > 150 mg/dl (max daily 100 units) (100 UNIT/ML SOPN) Insulin Lispro 8 units breakfast, 12 units lunch/dinner plus correction 1:30 > 150 mg/dl (max daily 100 units) (100 UNIT/ML SOPN)-Discontinued (Reorder) 8 units breakfast, 12 units lunch/dinner plus correction 1:30 > 150 mg/dl (max daily 100 units) (100 UNIT/ML SOPN) Insulin Lispro 10 units breakfast, 14 units dinner plus correction 1:30 > 150 mg/dl (max daily 50 units) (100 UNIT/ML SOPN) Insulin Regular Human 55 units breakfast and 25 units dinner (500 UNIT/ML SOPN) -Discontinued Labs [facility] [place] A[place]HEMOGLOBIN.TOTAL:MFR:PT:BLD:QN: 8.1 Outpatient prescription Medication marked as long-term Patient taking a medication differently The ASCVD Risk score (Johnnie MOTA, et al., 2019) failed to calculate for the following reasons: Cannot find a previous HDL lab Cannot find a previous total cholesterol lab REVIEW OF SYMPTOMS: Review of Systems Constitutional: Positive for fatigue. Negative for appetite change and unexpected weight change. Eyes: Negative for visual disturbance. Respiratory: Negative for cough, shortness of breath and wheezing. Cardiovascular: Negative for chest pain, palpitations and leg swelling. Neurological: Positive for numbness. Endocrine: Negative for polydipsia, polyphagia and polyuria. OBJECTIVE: 05/15/2025 10:29 AM 02/14/2025 9:25 AM 10/17/2024 1:12 PM Vitals BMI 35.86 kg/m2 37.12 kg/m2 39.06 kg/m2 Systolic 110 136 128 Diastolic 76 72 68 Heart Rate 67 74 78 Temp 97.2 F 97.7 F 97.3 F Height (in) 5' 6 5' 6 5' 6 Weight (lb) 222.2 230 242 Visit Report Report Report Report Physical Exam Constitutional: General: She is not in acute distress. Appearance: Normal appearance. She is obese. Cardiovascular: Rate and Rhythm: Normal rate and regular rhythm. Heart sounds: No murmur heard. No friction rub. No gallop. Pulmonary: Breath sounds: Normal breath sounds. No wheezing, rhonchi or rales. Musculoskeletal: General: No swelling. Neurological: Mental Status: She is alert. ASSESSMENT AND PLAN: Problem List Items Addressed This Visit Type 2 diabetes mellitus with peripheral neuropathy (HCC) During the appointment today all pertinent labs, imaging, health maintenance, and glucose readings were reviewed. Encouraged to check blood glucose throughout the day with some fasting and some PP readings. They are to bring their glucose meter/cgm in to all appointments. All of the patients questions, treatment options, and current care plan and goals were discussed. Acopy of this along with pertinent instructions were given to the patient at the end of the appointment. The patient voices understanding of all of this and is to call in between appointments if they have any problems or questions. Rita Cobb control is stable overall. , The patient is wearing their cgm on a daily basis and making decisions in regards to adjusting insulin daily as well for at least the last 60 days , Instructions given today include: Insulin instructions and Dietary education. Will increase insulin at breakfast and dinner. 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 Patient's Medications New Prescriptions No medications on file Previous Medications ALLOPURINOL (ZYLOPRIM) 100 MG TABLET Take 100 mg by mouth in the morning. ASCORBIC ACID (VITAMIN C) 1000 MG TABLET Take 1,000 mg by mouth in the morning. ASPIRIN 81 MG CHEWABLE TABLET 1 (one) time each day at the same time. B COMPLEX VITAMINS CAPSULE Take 1 capsule by mouth in the morning. BENICAR 40 MG TABLET 1 (one) time each day at the same time. BIOFLAVONOID PRODUCTS (BROOKE-C) TABLET as directed Orally COENZYME Q10 (CO Q 10 PO) Take by mouth CONTINUOUS BLOOD GLUC CUSTODY ASSISTANT (DEXCOM G7 CUSTODY ASSISTANT) DEVICE USE DIRECTED CONTINUOUS BLOOD GLUC SENSOR (DEXCOM G7 SENSOR) MISC USE DIRECTED, CHANGE EVERY 10 DAYS GNP VITAMIN D MAXIMUM STRENGTH 50 MCG (1999 UT) TABLET Take by mouth Daily. INSULIN DEGLUDEC (TRESIBA FLEXTOUCH) 200 UNIT/ML INJECTION Inject 60 Units under the skin Daily METOPROLOL SUCCINATE XL (TOPROL-XL) 200 MG 24 HR TABLET 1 (one) time each day at the same time. OMEGA-3 ACID ETHYL ESTERS (LOVAZA) 1 G CAPSULE Take 2 g by mouth in the morning and 2 g before bedtime. PREGABALIN (LYRICA) 150 MG CAPSULE Take 150 mg by mouth at bedtime ROSUVASTATIN (CRESTOR) 10 MG TABLET TAKE 1 TABLET BY MOUTH ONCE DAILY ON mondays, wednesdays, AND fridays Modified Medications Modified Medication Previous Medication INSULIN LISPRO (HUMALOG KWIKPEN) 100 UNIT/ML INJECTION insulin lispro (HumaLOG KWIKPEN) 100 UNIT/MLinjection 10 units breakfast, 14 units dinner plus correction 1:30 > 150 mg/dl (max daily 50 units) 8 units breakfast, 12 units lunch/dinner plus correction 1:30 > 150 mg/dl (max daily 100 units) INSULIN PEN NEEDLE ([facility] UNIFINE PENTIPS) 31G X 8 MM MISC Drug [place] Unifine Pentips 31G X 8 MMmisc Injection subcutaneous tid USE DIRECTED Discontinued Medications No medications on file I have reviewed and reconciled the history and medication list with the patient today. documented in this encounterSaint John's Saint [facility] [id number] Evaluation note* Diagnosis Onset Date Resolution Status Admit Date CKD (chronic kidney disease) stage 2, GFR 60-89 ml/min acute March 06, 2025 7:41am Constipation acute March 06, 2 025 7:41am Diabetic neuropathy acute March 06, 2025 7:41am Family history of dementia acute March 06, 2025 7:41am Rotator cuff syndrome of rig ht shoulder acute March 06, 2025 7:41am Spondylolisthesis, lumbar region acu te March 06, 2025 7:41am Chronic pain acute May 31 8:03am Osteoarthritis of spine with radiculopathy, lumbar region acute Jorge y 2nd, 2025 8:03am Other low back pain acute May 31, 2025 8:03am Trochanteric bursitis acute May 8:03am [facility] Work Phone: [phone]) 821-277802-19-2025 Evaluation note* Diagnosis Onset Date Resolution Status Admit Date Chronic pain acute December 8:00am Osteoarthritis of spine with radiculopathy, lumbar region acute Feb ruary 2024 8:00am Other low back pain acute Febru cory 2024 8:00am Arthrosis of right acromioclavicular joint acute January 26, 2025 12:50pm Partial tear of right rotato r cuff acute January 26 12:50pm Rotator cuff syndrome of rig ht shoulder acute January 26 12:50pm Traumatic partial tear of bi ceps tendon acute January 26 12:50pm Chronic pain acute February 16, 2025 9:32am Osteoarthritis of spine with radiculopathy, lumbar region acute Jan 9:32am Other low back pain acute February 16, 2025 9:32am Trochanteric bursitis acute Jan 9:32am CKD (chronic kidney disease) stage 2, GFR 60-89 ml/min acute March 06, 2025 7:41am Constipation acute March 06 7:41am Diabetic neuropathy acute March 06, 2025 7:41am Family history of dementia acute March 06, 2025 7:41am Rotator cuff syndrome of rig ht shoulder acute March 06, 2025 7:41am Spondylolisthesis, lumbar region acu te March 06, 2025 7:41am [facility] Work Phone: 1(220) 938-772202-10-2025 Evaluation note* Author France Carlson [facility] Authored January 09, 2025 11:30am The above note written by ITZ Canchola acting as human recorder, note dictated by Dr. Charan Casey. [facility] Work Phone: 1([phone]) 609-128102-10-2025 Telephone encounter Note* Telephone Encounter - Kati Clint - 01/09/2025 1:09 PM EST Pt's spouse called to ask if Dr. Merritt has any dexcom G7 sensors. She has been without for over aweek. Her prescription has been delayed due to insurance issues, She is having an injection tomorrow and is worried about her bg readings. [facility] [id number] Miscellaneous Notes* Telephone Encounter - Kati Jaramillo - 01/09/2025 1:09 PM EST Pt's spouse called to ask if Dr. Merritt has any dexcom G7 sensors. She has been without for over aweek. Her prescription has been delayed due to insurance issues, She is having an injection tomorrow and is worried about her bg readings. documented in this encounterSaint John's Saint Francis [id number] Evaluation note* Author France Carlson [facility] Authored January 09, 2025 10:30am The above note written by ITZ Canchola acting as human recorder, note dictated by Dr. Charan Casey. [facility] Work Phone: 1(157) 110-356811-20-2024 Evaluation note* Diagnosis Onset Date Resolution Status Admit Date Chronic pain acute September 8:01am Osteoarthritis of spine with radiculopathy, lumbar region acute Sep 8:01am Arthrosis of right acromioclavicular joint acute October 25, 2024 8:44am Rotator cuff syndrome of rig ht shoulder acute October 25, 2 024 8:44am Cough acute December 09, 2024 10:00am Chronic pain acute November 9:01am Osteoarthritis of spine with radiculopathy, lumbar region acute Nov 9:01am [facility] Work Phone: [phone] 670-197611-20-2024 Evaluation note* Diagnosis Onset Date Resolution Status Admit Date Chronic pain acute September 8:01am Osteoarthritis of spine with radiculopathy, lumbar region acute Sep 8:01am Arthrosis of right acromioclavicular joint acute October 25, 2024 8:44am Rotator cuff syndrome of rig ht shoulder acute October 25, 024 8:44am Cough acute December 09, 2024 10:00am Chronic pain acute November 9:01am Osteoarthritis of spine with radiculopathy, lumbar region acute Nov 9:01am Arthrosis of right acromioclavicular joint acute December 29, 2024 7:33am Rotator cuff syndrome of rig ht shoulder acute December 29 7:33am [facility] Work Phone: [phone]) 822-481011-19-2024 History of Present illness Narrative* Shaina Munroe DO - 10/18/2024 8:35 PM ESTAssociated Problem(s): Type 2 diabetes mellitus with peripheral neuropathy (CMS/HCC) During the appointment today all pertinent labs, imaging, health maintenance, and glucose readings were reviewed. Encouraged to check blood glucose throughout the day with some fasting and some PP readings. They are to bring their glucose meter/cgm in to all appointments. All of the patients questions, treatment options, and current care plan and goals were discussed. Acopy of this along with pertinent instructions were given to the patient at the end of the appointment. The patient voices understanding of all of this and is to call in between appointments if they have any problems or questions. Rita Cobb is doing very well and encouraged on this. , Will stay on current medications. , The patient is wearing their cgm on a daily basis and making decisions in regards to adjusting insulin daily as well for at least the last 60 days , Instructions given today include: Insulin instructions and Dietary education * Shaina Munroe DO - 10/17/2024 1:15 PM EST Images from the original note were not included. Rita Cobb is a 63 y.o. female presents with chief complaint of Diabetes HPI: Diabetes Mellitus Follow-up: Rita Cobb is here for follow-up evaluation of diabetes mellitus. The initial diagnosis of diabetes was made in 2006 Diabetes complications: retinopathy and peripheral neuropathy She has been checking her blood glucose with a Dexcom G7 CGM - linked. Tends to run smooth and in the low normal range overnight, will rise during the day. Last A1c: 7.8 (06/21/24) Last eye exam: 04/20/2024 Current concerns include: If bg levels are under 150 she will hold the humalog. States her bg levels are similar to last visit. She had a back injection about [address] Ortiz which helped the pain but made her bg levels elevate. Under more stress with her [employer]. Diet: low carb, increase protein Drinks: water, couple times a month coffee with sweetened creamer Exercise: walking on occasion Hypoglycemia: couple times a month after a meal ( too much insulin for what she eats) SUBJECTIVE: PROBLEM LIST SOCIAL ALLERGIES: Patient Active Problem List Diagnosis Type 2 diabetes mellitus with peripheral neuropathy ([facility]HCC) 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 ([facility]HCC) Long-term insulin use ([facility]) Spondylolisthesis at L3-L4 level S/P laparoscopic cholecystectomy Other hammer toe(s) (acquired), left foot Chronic foot ulcer ([facility]HCC) Carpal tunnel syndrome of right wrist Class 2 severe obesity with serious comorbidity and body mass index (BMI) of 39.0 to 39.9 in adult ([facility]) Type 2 diabetes mellitus with both eyes affected by mild nonproliferative retinopathy without macular edema, with long-term current use of insulin ([facility]) Social History Tobacco Use Smoking status: Never Smokeless tobacco: Never Substance Use Topics Alcohol use: Never Comment: caffeine: 1-2 cups per day coffee Drug use: Never Allergies Allergen Reactions Erythromycin Base Nausea Only Synopsis SmartLink 10/17/2024 13:25 Antidiabetic medications Insulin Lispro 5 units breakfast and dinner (100 UNIT/ML SOPN) Insulin Regular Human 55 units breakfast and 25 units dinner (500 UNIT/ML SOPN) Labs [facility] A1C 7.6 Outpatient prescription Medication marked as long-term REVIEW OF SYMPTOMS: Review of Systems Constitutional: Positive for fatigue. Negative for appetite change and unexpected weight change. Eyes: Negative for visual disturbance. Respiratory: Negative for cough, shortness of breath and wheezing. Cardiovascular: Negative for chest pain, palpitations and leg swelling. Neurological: Positive for numbness. Endocrine: Negative for polydipsia, polyphagia and polyuria. OBJECTIVE: 10/17/2024 1:12 PM 06/21/2024 1:21 PM 02/09/2024 8:30 AM Vitals BMI 39.06 kg/m2 38.25 kg/m2 39.22 kg/m2 Systolic 128 138 138 Diastolic 68 82 86 Heart Rate 78 79 65 Temp 97.3 F 97.7 F 98 F Height (in) 5' 6 5' 6 5' 6 Weight (lb) 242 237 243 Visit Report Report Report Report Physical Exam Constitutional: General: She is not in acute distress. Appearance: Normal appearance. She is obese. Cardiovascular: Rate and Rhythm: Normal rate and regular rhythm. Heart sounds: No murmur heard. No friction rub. No gallop. Pulmonary: Breath sounds: Normal breath sounds. No wheezing, rhonchi or rales. Musculoskeletal: General: No swelling. Neurological: Mental Status: She is alert. ASSESSMENT AND PLAN: Problem List Items Addressed This Visit Type 2 diabetes mellitus with peripheral neuropathy (CMS/HCC) - Primary During the appointment today all pertinent labs, imaging, health maintenance, and glucose readings were reviewed. Encouraged to check blood glucose throughout the day with some fasting and some PP readings. They are to bring their glucose meter/cgm in to all appointments. All of the patients questions, treatment options, and current care plan and goals were discussed. Acopy of this along with pertinent instructions were given to the patient at the end of the appointment. The patient voices understanding of all of this and is to call in between appointments if they have any problems or questions. Rita Cobb is doing very well and encouraged on this. , Will stay on current medications. , The patient is wearing their cgm on a daily basis and making decisions in regards to adjusting insulin daily as well for at least the last 60 days , Instructions given today include: Insulin instructions and Dietary education Relevant Orders POCT glycosylated hemoglobin (Hb A1C) docked device (Completed) 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 (CMS/HCC) Long-term insulin use (CMS/HCC) Class 2 severe obesity with serious comorbidity and body mass index (BMI) of 39.0 to 39.9 in adult (CMS/HCC) Type 2 diabetes mellitus with both eyes affected by mild nonproliferative retinopathy without macular edema, with long-term current use of insulin ([facility]) Follow up in about 4 months (around 02/14/2025) for Recheck. Patient's Medications New Prescriptions No medications on file Previous Medications ALLOPURINOL (ZYLOPRIM) 100 MG TABLET Take 100 mg by mouth in the morning. ASPIRIN 81 MG CHEWABLE TABLET 1 (one) time each day at the same time. BENICAR 40 MG TABLET 1 (one) time each day at the same time. CONTINUOUS BLOOD GLUC CUSTODY ASSISTANT (DEXCOM G7 CUSTODY ASSISTANT) DEVICE USE DIRECTED CONTINUOUS BLOOD GLUC SENSOR (DEXCOM G7 SENSOR) MISC USE DIRECTED, CHANGE EVERY 10 DAYS GNP VITAMIN D MAXIMUM STRENGTH 50 MCG (2000 UT) TABLET Take by mouth Daily. INSULIN LISPRO (HUMALOG) 100 UNIT/ML INJECTION 5 units breakfast and dinner INSULIN REGULAR (HUMULIN R U-500 KWIKPEN) 500 UNIT/ML CONCENTRATED INJECTION 55 units breakfast and25 units dinner LYRICA 300 MG CAPSULE Take 1 capsule by mouth at bedtime. METOPROLOL SUCCINATE XL (TOPROL-XL) 200 MG 24 HR TABLET 1 (one) time each day at the same time. OMEGA-3 ACID ETHYL ESTERS (LOVAZA) 1 G CAPSULE Take 2 g by mouth in the morning and 2 g before bedtime. PREGABALIN (LYRICA) 150 MG CAPSULE Take 150 mg by mouth in the morning. ROSUVASTATIN (CRESTOR) 10 MG TABLET TAKE 1 TABLET BY MOUTH ONCE DAILY ON mondays, wednesdays, AND fridays Modified Medications No medications on file Discontinued Medications No medications on file I have reviewed and reconciled the history and medication list with the patient today. documented in this encounterSaint John's Saint [facility] [id number] Procedure noteTri[facility]10-14-[facility] Evaluation note* Diagnosis Onset Date Resolution Status Admit Date Chronic pain acute August 8:03am Osteoarthritis of spine with radiculopathy, lumbar region acute Aug 8:03am Sacroiliitis, not elsewhere classified acute September 12 8:03am Chronic pain acute September 8:01am Osteoarthritis of spine with radiculopathy, lumbar region acute Sep 8:01am [facility] Work Phone: [phone] 271-640010-14-2024 Evaluation note* Diagnosis Onset Date Resolution Status Admit Date Chronic pain acute August 8:03am Osteoarthritis of spine with radiculopathy, lumbar region acute Aug 8:03am Sacroiliitis, not elsewhere classified acute September 12 8:03am Chronic pain acute September 8:01am Osteoarthritis of spine with radiculopathy, lumbar region acute Sep 8:01am Arthrosis of right acromioclavicular joint acute October 25, 2024 8:44am Rotator cuff syndrome of rig ht shoulder acute October 25, 024 8:44am [facility] Work Phone: [phone]) [phone] Evaluation note* Diagnosis Onset Date Resolution Status Admit Date Chronic pain acute August 8:03am Osteoarthritis of spine with radiculopathy, lumbar region acute Aug 8:03am Sacroiliitis, not elsewhere classified acute September 12 8:03am Chronic pain acute September 8:01am Osteoarthritis of spine with radiculopathy, lumbar region acute Sep 8:01am Arthrosis of right acromioclavicular joint acute October 25, 2024 8:44am Rotator cuff syndrome of rig ht shoulder acute October 25, 2 024 8:44am Cough acute December 09, 2024 10:00am [facility] Work Phone: [phone] 490-368309-26-2024 History of Present illness Narrative* Rosalinda Torres MD - 08/25/2024 8:40 AM EDT Subjective Rita Cobb is a 63 y.o. female Chief Complaint Follow-up HPI Patient is in the office for follow-up for the problems noted below. She has had no major cardiovascular events since her last visit several months ago. She is compliant with her CPAP machine her diabetes seems to be under control. Her weight remains way above target and due to Zguiqbk-Ibawb-Mcnyb joints she has limited exercise capacity. Her blood pressure is under control and her cardiovascularexamination was normal. Her recent lab from this past spring were reviewed and shared with her. Assessment/recommendation: 1-CAD status post PCI of the LAD February 2022 for total occlusion with resolution of symptoms. Aggressive risk factor modification again was emphasized. 2-type II diabetes managed by PCP, A1c under control 3-essential hypertension hypertension medical therapy under control 4-mixed dyslipidemia , currently on rosuvastatin 3 days weekly due to intolerance to higher doses, she is also on Lovaza 5-class II obesity, encouraged the patient to control caloric consumption and remain physically active 6-obstructive sleep apnea on CPAP machine patient has been compliant with it. 8-Fdjkixh-Vxhtm-Tooth joint in the ankles status post recent surgery on the left foot with plan to repair the right foot down the road Review of Systems Cardiovascular: Positive for chest pain. Respiratory: Positive for shortness of breath. All other systems reviewed and are negative. Vitals: 08/25/24 0835 BP: 130/80 BP Location: Left arm Patient Position: Sitting Pulse: 80 Weight: 109 kg (241 lb) Height: 1.702 m (5' 7 ) [...] , Rfl: ergocalciferol (Vitamin D-2) 1.25 MG (76999 UT) capsule, Take 1 capsule (50,000 Units) by mouth once daily., Disp: , Rfl: insulin lispro (HumaLOG) 100 unit/mL injection, Inject under the skin. Take as directed per insulininstructions., Disp: , Rfl: insulin regular (HumuLIN R [...] tablet (100 mg) by mouth once daily. Donot crush, chew, or split., Disp: , Rfl: Assessment/Plan 1. Coronary artery disease, unspecified vessel or lesion type, unspecified whether angina present, unspecified whether [place] or transplanted heart Follow Up In Cardiology Follow Up In Cardiology 2. Elevated coronary artery calcium score 3. Essential hypertension 4. Hyperlipidemia, unspecified hyperlipidemia type 5. Type 2 diabetes mellitus without complication, with long-term current use of insulin (Multi) 6. 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 7. Obstructive sleep apnea syndrome 8. Class 2 obesity with body mass index (BMI) of 37.0 to 37.9 in adult, unspecified obesity type, unspecified whether serious comorbidity present Scribe Attestation By signing my name below, I, Enedina Yates LPN , Scribe attest that this documentation has been prepared under the direction and in the presence of Rosalinda Torres MD. Provider Attestation - Scribe documentation All medical record entries made by the Scribe were at my direction and personally dictated by me. Ihave reviewed the chart and agree that the record accurately reflects my personal performance of the history, physical exam, discussion and plan. documented in [facility] Work Phone: 1(607) 503-403509-26-2024 Instructions* Patient Instructions* Enedina Isidro LPN - 08/25/2024 8:40 AM EDT Please bring all medicines, vitamins, and herbal supplements with you when you come to the office. Prescriptions will not be filled unless you are compliant with your follow up appointments or have a follow up appointment scheduled as per instruction of your physician. Refills should be requested at the time of your visit. BMI was above normal measurement. Current weight: 109 kg (241 lb) Weight change since last visit (-) denotes wt loss 4 lbs Weight loss needed to achieve BMI 25: 81.7 Lbs Weight loss needed to achieve BMI 30: 49.9 Lbs Provided instructions on dietary changes Provided instructions on exercise. documented in this encounterBl[facility] Work Phone: 1(904) 351-103507-02-2024 [facility] History of Present illness Narrative* Rosalinda Torres MD - 02/22/2024 2:20 PM EDT Subjective Rita Cobb is a 63 y.o. female Chief Complaint Follow-up HPI Patient is in the office for follow-up for the problems noted below. She has had no cardiac events since her last visit. She reports no angina orthopnea PND or lower extremity edema. She has orthopedic problems resulting from her Kullpmv-Lzvky-Zpgyu disease. Her labs have been followed closely. Herexamination is only remarkable for class II obesity. [...] machine patient has been compliant with it. 1-Sdiucpl-Elbyi-Tooth joint in the ankles status post recent [...] , Rfl: ergocalciferol (Vitamin D-2) 1.25 MG (61057 UT) capsule, Take 1 capsule (50,000 Units) by mouth once daily., Disp: , Rfl: insulin lispro (HumaLOG) 100 unit/mL injection, Inject under the skin. Take as directed per insulininstructions., Disp: , Rfl: insulin regular (HumuLIN R [...] tablet (100 mg) by mouth once daily. Donot crush, chew, or split., Disp: , Rfl: Assessment/Plan 1. Coronary artery disease, unspecified vessel or lesion type, unspecified whether angina present, unspecified whether [place] or transplanted heart Follow Up In Cardiology 2. Essential hypertension 3. 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 4. Hyperlipidemia, unspecified hyperlipidemia type 5. Obstructive sleep apnea syndrome 6. Class 2 obesity with body mass index (BMI) of 37.0 to 37.9 in adult, unspecified obesity type, unspecified whether serious comorbidity present 7. Insulin-requiring or dependent type II diabetes mellitus ([facility]) Scribe Attestation By signing my name below, I, Enedina Yates LPN, Scribe attest that this documentation has been prepared under the direction and in the presence of Rosalinda Torres MD. Provider Attestation - Scribe documentation All medical record entries made by the Scribe were at my direction and personally dictated by me. Ihave reviewed the chart and agree that the record accurately reflects my personal performance of the history, physical exam, discussion and plan. documented in this encounterBl[facility] Work Phone: 1(855) 640-875903-25-2024 Instructions* Patient Instructions* Enedina Isidro LPN - 02/22/2024 2:20 PM [...] 6 m Same medications documented in this encounterBl[facility] Work Phone: 1(474) 692-464801-31-2024 Evaluation note* Encounter Date Diagnosis Assessment Notes Treatment Notes Treatment Clinical Notes Nov, Asthmatic bronchitis (ICD-10 - J45.909) [...] to call if she does not improve. [employer] Other 12-05-2023 Evaluation note* Encounter Date Diagnosis Assessment Notes Treatment Notes Treatment Clinical Notes Oct, Hyperlipidemia (ICD-10 - E78.5) [employer] Other 11-29-2023 Evaluation note* Encounter Date Diagnosis Assessment Notes Treatment Notes Treatment Clinical Notes Sep, Trochanteric bursitis of left hip (ICD-10 - M70.62) [employer] Other 11-29-2023 Evaluation note* Encounter Date Diagnosis [...] note writ ten by Willi Leiva MA, [employer]. Edited and approved by Dr. Blas Ortiz MD. [employer] Other 11-22-2023 Evaluation note* Encounter Date Diagnosis [...] of symptoms occur by end of treatment. [place] [employer] Other 11-20-2023 Evaluation note* Encounter Date Diagnosis Assessment Notes Treatment Notes Treatment Clinical Notes Sep, Cervical spondylosis without myelopathy (ICD-10 - M47.812) [facility] [employer] Other 11-08-2023 Evaluation note* Encounter Date Diagnosis Assessment Notes Treatment Notes Treatment Clinical Notes Sep, Hypertensive chronic kidney disease with stage 1 through stage 4 chronic kidney disease, or unspecified chronic kidney disease (ICD-10 - I12.9) [facility] [employer] Other 11-07-2023 History and physical note Author Yasmeen Treadwell [facility] October 06, 2023 8:31am Note Date/Time October 06, 2023 8 :31am [facility] [address] [place] [address] Gastroenterology H&P Signed Patient: Rita Cobb MR#: [id number] 365 : 1960 Acct:[id number] Age/Sex: 62 / F Adm Date: 3 Loc: Room: Type: [facility] Attending Dr: Yasmeen Treadwell MD Copies [...] <Electronically signed by Yasmeen Treadwell MD> 10/06/23830 [facility] Work Phone: 1(429) 982-895911-07-2023 Procedure noteTri[facility]10-25-2023 Evaluation note* Encounter Date Diagnosis Assessment Notes [...] note writ ten by Corina Sánchez LPN, [employer]. Edited and approved by Dr. Blas Ortiz MD. [place] [employer] Other 10-17-2023 Evaluation note* Encounter Date Diagnosis [...] advised her to continue to follow with [facility] for DM management. Continue olmesartan for renal [...] risk of worsening renal function and hematuria. [employer] Other 09-19-2023 Evaluation note* Encounter Date Diagnosis Assessment Notes Treatment Notes Treatment Clinical Notes Jul, Hyperuricemia (ICD-1 0 - E79.0) Jul, Diabetic neuropathy (ICD-10 - E11.40) [employer] Other 09-18-2023 Evaluation note* Encounter Date Diagnosis [...] note writ ten by Corina Sánchez LPN, [employer]. Edited and approved by Dr. Blas Ortiz MD. [employer] Other 09-12-2023 Evaluation note* Encounter Date Diagnosis [...] Low back pain, unspecified (ICD-10 - M54.50) [employer] Other 09-06-2023 Evaluation note* Encounter Date Diagnosis [...] Screening for colon cancer (ICD-10 - Z12.11) [employer] Other 08-03-2023 Evaluation note* Encounter Date Diagnosis Assessment Notes Treatment Notes Treatment Clinical Notes Jun, Type 2 diabetes mellitus with diabetic neuropathy, unspecified (ICD-10 - E11.40) [employer] Other 06-20-2023 Evaluation note* Encounter Date Diagnosis [...] M47.812) Refill provided of the above medication. [employer] Other 06-06-2023 Evaluation note* Encounter Date Diagnosis Assessment Notes Treatment Notes Treatment Clinical Notes Apr, Type 2 diabetes mellitus with diabetic neuropathy, unspecified (ICD-10 - E11.40) [employer] Other 05-15-2023 NotePROCEDURE: XR FOOT LT 2V HISTORY: Pain COMPARISON: XR foot left 04/07/2023 FINDINGS: BONES:Several intraoperative spot fluoroscopic images demonstrate removal of 3 separate lag screws fixating the second and fourth metatarsophalangeal joints. SOFT TISSUES:Expected intraoperative findings. OTHER: Negative. IMPRESSION: 1. Hardware revision involving left midfoot. Electronically authenticated by: BLANKA OLGUIN Date: 2023-04-13 11:35[facility]05-15-2023 NotePROCEDURE: XR FOOT LT MIN 3 [...] BLANKA OLGUIN Date: 2023-04-13 11:29[id number] NotePROCEDURE: XR FOOT LT MIN 3 VIEWS [...] Electronically authenticated by: BLANKA OLGUIN Date: 2023-04-07 13:31[facility]05-08-2023 Evaluation note* Encounter Date Diagnosis Assessment Notes Treatment Notes Treatment Clinical Notes March, Type 2 diabetes mellitus with diabetic neuropathy, unspecified (ICD-10 - E11.40) March, Type 2 diabetes mellitus with hyperglycemia, without long-term current use of insulin (ICD-10 - E11.65) [employer] Other 05-02-2023 Evaluation note* Encounter Date Diagnosis [...] as scheduled. Most recent A1C was 7.0. [employer] Other 04-27-2023 Evaluation note* Encounter Date Diagnosis Assessment Notes Treatment Notes Treatment Clinical Notes Feb, Hypertensive chronic kidney disease with stage 1 through stage 4 chronic kidney disease, or unspecified chronic kidney disease (ICD-10 - I12.9) Feb, Type 2 diabetes mellitus with diabetic neuropathy, unspecified (ICD-10 - E11.40) [employer] Other 04-11-2023 Evaluation note* Encounter Date Diagnosis [...] advised her to continue to follow with [facility] for DM management. Continue olmesartan for renal [...] have advised to continue with oral magnesium. [employer] Other 04-05-2023 Evaluation note* Encounter Date Diagnosis Assessment Notes Treatment Notes Treatment Clinical Notes Feb, Hyperlipidemia (ICD-10 - E78.5) [employer] Other 04-05-2023 Evaluation note* Encounter Date Diagnosis Assessment Notes Treatment Notes Treatment Clinical Notes Feb, Obstructive apnea (ICD-10 - G47.33) Feb, Insomnia (ICD-10 - G47.00) Feb, Neuropathy (ICD-10 - G62.9) [employer] Other 04-05-2023 NotePROCEDURE: XR FOOT LT MIN [...] Electronically authenticated by: BLANKA OLGUIN Date: 2023-03-04 06:39[facility]03-20-[facility] Evaluation note* Encounter Date Diagnosis Assessment Notes Treatment Notes Treatment Clinical Notes Jan, Hypertensive chronic kidney disease with stage 1 through stage 4 chronic kidney disease, or unspecified chronic kidney disease (ICD-10 - I12.9) Jan, Diabetic neuropathy (ICD-10 - E11.40) [employer] Other 03-09-2023 Evaluation note* Encounter Date Diagnosis Assessment Notes Treatment Notes Treatment Clinical Notes Jan, Hyperuricemia (ICD-1 0 - E79.0) [employer] Other 03-08-2023 NotePROCEDURE: XR FOOT LT MIN [...] Electronically authenticated by: BRODERICK FLOR Date: 2023-02-04 09:36[facility]02-22-2023 NotePROCEDURE: XR FOOT LT MIN 3 VIEWS [...] Electronically authenticated by: BLANKA OLGUIN Date: 2023-01-21 10:26[facility]02-20-2023 Evaluation note* Encounter Date Diagnosis Assessment Notes Treatment Notes Treatment Clinical Notes Dec, Diabetic neuropathy (ICD-10 - E11.40) [employer] Other [id number] NotePROCEDURE: XR FOOT LT MIN 3 VIEWS, [...] compared to intraoperative images. Electronically authenticated by: BALNKA OLGUIN Date: 2022-12-29 17:33[facility]01-30-2023 NotePROCEDURE: XR FOOT LT MIN 3 [...] Electronically authenticated by: BLANKA OLGUIN Date: 2022-12-29 17:33[facility]01-30-2023 NotePROCEDURE: XR FOOT LT 2V HISTORY: Pain COMPARISON: XR foot bilateral 11/12/2022 FINDINGS: BONES:Multiple intraoperative spot fluoroscopic images demonstrate resection of the bases of the metatarsals followed by midfoot fusion via lag screws. Talocalcaneal fusion. SOFT TISSUES:Expected intraoperative findings. IMPRESSION: 1. Midfoot resection and fusion. 2. Talocalcaneal fusion. Electronically authenticated by: BLANKA OLGUIN Date: 2022-12-29 17:31[facility]01-24-2023 NoteEXAM: XR CHEST 2 V HISTORY: [...] Electronically authenticated by: ACOSTA JOHNSON Date: 2022-12-23 12:48[facility]11-29-2022 Evaluation note* Encounter Date Diagnosis Assessment Notes Treatment Notes Treatment Clinical Notes Sep, Encounter for immunization (ICD-10 - Z23) Patient presents today for Shingrix vaccination #1 of 2. Patient denies current acute illness, denies any past allergy or serious reaction to previousvaccine or ingredients. Shingrix Vaccine material and current VIS discussed and provided to patient. [employer] Other 11-17-2022 Evaluation note* Encounter Date Diagnosis Assessment Notes Treatment Notes Treatment Clinical Notes Sep, Encounter for immunization (ICD-10 - Z23) Patient denies current illness, previous allergic reaction to influenza vaccine, eggs, or other vaccines, and Guillain-[place] Syndrome. Patient given current editions of influenza Vaccine Information Statement (VIS). [employer] Other 11-17-2022 Evaluation note* Encounter Date Diagnosis Assessment Notes Treatment Notes Treatment Clinical Notes Sep, Hypertensive chronic kidney disease with stage 1 through stage 4 chronic kidney disease, or unspecified chronic kidney disease (ICD-10 - I12.9) [employer] Other 11-17-2022 Evaluation note* Encounter Date Diagnosis Assessment Notes Treatment Notes Treatment Clinical Notes Sep, Encounter for immunization (ICD-10 - Z23) Patient presents today for COVID-19 vaccination booster. Patient pre-vaccination form answers reviewed. Patient denies current illness or allergic reaction to any component of a COVD-19 vaccine. Patient provided with copy of current EUA. [employer] Other 10-26-2022 Evaluation note* Encounter Date Diagnosis [...] advised her to continue to follow with [facility] for DM management. She reported that she [...] her to take a low phosphorus diet. [employer] Other 10-04-2022 Evaluation note* Encounter Date Diagnosis [...] E11.40) Pateint continues on the above medications. [employer] Other 09-08-2022 Evaluation note* Encounter Date Diagnosis Assessment Notes Treatment Notes Treatment Clinical Notes Jul, Diabetic neuropathy (ICD-10 - E11.40) [employer] Other 08-17-2022 Evaluation note* Encounter Date Diagnosis Assessment Notes Treatment Notes Treatment Clinical Notes Jun, Hyperlipidemia (ICD-10 - E78.5) Jun, CKD (chronic kidney disease) stage 3, GFR 30-59 ml/min (ICD-10 - N18.3) Jun, Essential hypertension (ICD-10 - I10) [employer] Other 08-03-2022 Evaluation note* Encounter Date Diagnosis Assessment Notes Treatment Notes Treatment Clinical Notes Jun, Type 2 diabetes mellitus with diabetic neuropathy, unspecified (ICD-10 - E11.40) [employer] Other 06-01-2022 Evaluation note* Encounter Date Diagnosis Assessment Notes Treatment Notes Treatment Clinical Notes Apr, Obstructive apnea (ICD-10 - G47.33) Apr, Insomnia (ICD-10 - G47.00) Apr, Neuropathy (ICD-10 - G62.9) [employer] Other 05-16-2022 Evaluation note* Encounter Date Diagnosis [...] Patient is to continue to follow with [employer] as scheduled. March, Shortness of breath (ICD-10 - R06.02) Patient is to continue to follow with the [employer] as scheduled. March, Parathyroid disease (ICD-10 - E21.5) Patient is to continue to follow with the specialist as scheduled. March, Charcot foot due to diabetes mellitus (ICD-10 - E11.610) Patient is to continue to follow with as scheduled. [employer] Other 05-09-2022 Evaluation note* Encounter Date Diagnosis Assessment Notes Treatment Notes Treatment Clinical Notes March, Type 2 diabetes mellitus with diabetic neuropathy, unspecified (ICD-10 - E11.40) March, Type 2 diabetes mellitus with hyperglycemia, without long-term current use of insulin (ICD-10 - E11.65) [employer] Other 03-24-2022 Evaluation note* Encounter Date Diagnosis [...] advised her to continue to follow with [facility] for DM management. Jan, Vitamin D deficiency [...] her to take a low phosphorus diet. [employer] Other 03-11-2022 Evaluation note* Encounter Date Diagnosis [...] her symptoms worsen. 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 I did provide a work note excuse today. Jan, Shortness of breath (ICD-10 - R06.02) In house EKG ordered and reviewed. Cardiac consult recommended as above. Jan, Diabetic neuropathy (ICD-10 - E11.40) Worsening bilateral neuropathy reported by the patient . she has been consulting with research nurse practitioner who per patient has suggested it may [...] The patient encourged to follow up with [facility] as scheduled, discussion was had she would benefit from a pulmonary function test. [employer] Other 02-22-2022 Evaluation note* Encounter Date Diagnosis Assessment Notes Treatment Notes Treatment Clinical Notes Dec, Type 2 diabetes mellitus with diabetic neuropathy, unspecified (ICD-10 - E11.40) [employer] Other 01-04-2022 Evaluation note* Encounter Date Diagnosis [...] deficiency (ICD-10 - E55.9) Blood work ordered. [employer] Other 02-01-2015 History general Narrative - Reported* [...] low back surgery 07/25/2020 Hospitalization History tachycardia 2000 Hospitalization History necrotizing fasciitis 2017 Hospitalization History see above [employer] Other 02-01-2015 History general Narrative - Reported* [...] necrotizing fasciitis 2017 Hospitalization History see above [employer] Other 02-01-2015 History general Narrative - Reported* [...] necrotizing fasciitis 2017 Hospitalization History see above [employer] Other 02-01-2015 History general Narrative - Reported* [...] necrotizing fasciitis 2017 Hospitalization History see above [employer] Other 02-01-2015 History general Narrative - Reported* [...] necrotizing fasciitis 2017 Hospitalization History see above [employer] Other 02-01-2015 History general Narrative - Reported* [...] necrotizing fasciitis 2017 Hospitalization History see above [employer] Other 02-01-2015 History general Narrative - Reported* [...] necrotizing fasciitis 2017 Hospitalization History see above [employer] Other Evaluation noteD[facility] Other Evaluation noteNo InformationNonorthwest medical center [employer] Other Evaluation noteD[facility]Doctor Other evaluation noteNo assessment information available [facility] Work Phone: Evaluation note* Diagnosis Coronary artery disease, unspecified vessel or lesion type, unspecified whether angina present, unspecified whether [place] or transplanted heart- Primary Essential hypertension Unspecified essential hypertension 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 Hyperlipidemia, unspecified hyperlipidemia type Obstructive sleep apnea syndrome Obstructive sleep apnea (adult) (pediatric) Class 2 obesity with body mass index (BMI) of 37.0 to 37.9 in adult, unspecified obesity type, unspecified whether serious comorbidity present Insulin-requiring or dependent type II diabetes mellitus ([facility]) Type II or unspecified type diabetes mellitus without mention of complication, not stated as uncontrolled documented in this encounter [facility] Work Phone: Evaluation note* Diagnosis Onset Date Resolution Status Chronic pain acute Inflammation of sacroiliac joint acute Osteoarthritis of spine with radiculopathy, lumbar region acute Trochanteric bursitis acute [facility] Work Phone: Evaluation note* Diagnosis Onset Date Resolution Status Chronic pain acute Inflammation of sacroiliac joint acute Osteoarthritis of spine with radiculopathy, lumbar region acute Trochanteric bursitis acute CKD (chronic kidney disease) stage 3, GFR 30-59 ml/min acute Hyperlipidemia acute Hyperparathyroidism acute [id number] acute Hyperuricemia acute Hypomagnesemia acute Nephrolithiasis acute Type 2 diabetes mellitus wit h diabetic chronic kidney disease acute [facility] Work Phone: Evaluation note* Diagnosis Onset Date Resolution Status Chronic pain acute Inflammation of sacroiliac joint acute Osteoarthritis of spine with radiculopathy, lumbar region acute Trochanteric bursitis acute CKD (chronic kidney disease) stage 3, GFR 30-59 ml/min acute Hyperlipidemia acute Hyperparathyroidism acute [id number] acute Hyperuricemia acute Hypomagnesemia acute Nephrolithiasis acute Type 2 diabetes mellitus wit h diabetic chronic kidney disease acute Chronic pain acute Lumbar muscle pain acute Osteoarthritis of spine with radiculopathy, lumbar region acute [facility] Work Phone: Evaluation note* Diagnosis Onset Date Resolution Status CKD (chronic kidney disease) stage 3, GFR 30-59 ml/min acute Hyperlipidemia acute Hyperparathyroidism acute [id number] acute Hyperuricemia acute Hypomagnesemia acute Nephrolithiasis acute Type 2 diabetes mellitus wit h diabetic chronic kidney disease acute Chronic pain acute Lumbar muscle pain acute Osteoarthritis of spine with radiculopathy, lumbar region acute Chronic pain acute Osteoarthritis of spine with radiculopathy, lumbar region acute Sacroiliitis, not elsewhere classified acute [facility] Work Phone: evaluation note* Diagnosis Onset Date Resolution Status Chronic pain acute Lumbar muscle pain acute Osteoarthritis of spine with radiculopathy, lumbar region acute Chronic pain acute Osteoarthritis of spine with radiculopathy, lumbar region acute Sacroiliitis, not elsewhere classified acute [facility] Work Phone: evaluation note* Diagnosis Onset Date Resolution Status Chronic pain acute Lumbar muscle pain acute Osteoarthritis of spine with radiculopathy, lumbar region acute Chronic pain acute Osteoarthritis of spine with radiculopathy, lumbar region acute Sacroiliitis, not elsewhere classified acute Obstructive apnea acute [facility] Work Phone: evaluation note* Diagnosis Onset Date Resolution Status Chronic pain acute Lumbar muscle pain acute Osteoarthritis of spine with radiculopathy, lumbar region acute Chronic pain acute Osteoarthritis of spine with radiculopathy, lumbar region acute Sacroiliitis, not elsewhere classified acute Obstructive apnea acute Chronic pain acute Osteoarthritis of spine with radiculopathy, lumbar region acute Sacroiliitis, not elsewhere classified [facility] Work Phone: evaluation note* Diagnosis Onset Date Resolution Status Chronic pain acute Osteoarthritis of spine with radiculopathy, lumbar region acute Sacroiliitis, not elsewhere classified acute [facility] Work Phone: evaluation note* Diagnosis Type 2 diabetes mellitus with peripheral neuropathy ([facility])- Primary 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 ([facility]) Long-term insulin use ([facility]) Class 2 severe obesity due to excess calories with serious comorbidity and body mass index (BMI) of 39.0 to 39.9 in adult [place] [place] Type 2 diabetes mellitus with peripheral neuropathy ([facility])- Primary 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 ([facility]) Class 2 severe obesity due to excess calories with serious comorbidity and body mass index (BMI) of 39.0 to 39.9 in adult ([facility] [place] Long-term insulin use ([facility]) Spondylolisthesis at L3-L4 level Class 2 severe obesity due to excess calories with serious comorbidity and body mass index (BMI) of 38.0 to 38.9 in adult ([facility])- Primary Type 2 diabetes mellitus with both eyes affected by mild nonproliferative retinopathy without macular edema, with long-term current use of insulin (CMS/HCC) Type 2 diabetes mellitus with peripheral neuropathy (CMS/HCC) 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 ([facility]/HCC) Long-term insulin use (CMS/HCC) Type 2 diabetes mellitus with peripheral neuropathy ([facility]/HCC)- Primary 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 ([facility]/HCC) Type 2 diabetes mellitus with both eyes affected by mild nonproliferative retinopathy without macular edema, with long-term current use of insulin (CMS/HCC) Long-term insulin use ([facility]) Class 2 severe obesity due to excess calories with serious comorbidity and body mass index (BMI) of 39.0 to 39.9 in adult ([facility]) documented in this encounter [facility] HealthcareEvaluation note* Diagnosis Coronary artery disease, unspecified vessel or lesion type, unspecified whether angina present, unspecified whether [place] or transplanted heart Elevated coronary artery calcium score Essential hypertension Unspecified essential hypertension Hyperlipidemia, unspecified hyperlipidemia type Type 2 diabetes mellitus without complication, with long-term current use of insulin (Multi) 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 Obstructive sleep apnea syndrome Obstructive sleep apnea (adult) (pediatric) Class 2 obesity with body mass index (BMI) of 37.0 to 37.9 in adult, unspecified obesity type, unspecified whether serious comorbidity present documented in this encounter [facility] Work Phone: Evaluation note* Author France Carlson [facility] Authored January 09, 2025 10:30am The above note written by ITZ Canchola acting as human recorder, note dictated by Dr. Charan Casey. 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) Class 2 severe obesity due to excess calories with serious comorbidity and body mass index (BMI) of 39.0 to 39.9 in adult ([facility]) Long-term insulin use ([facility]) Spondylolisthesis at L3-L4 level Class 2 severe obesity due to excess calories with serious comorbidity and body mass index (BMI) of 38.0 to 38.9 in adult ([facility] [place] Primary Type 2 diabetes mellitus with both eyes affected by mild nonproliferative retinopathy without macular edema, with long-term current use of insulin (HCC) Type 2 diabetes mellitus with peripheral neuropathy (HCC) 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) Long-term insulin use (HCC) Type 2 diabetes mellitus with peripheral neuropathy (HCC)- Primary 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) Type 2 diabetes mellitus with both eyes affected by mild nonproliferative retinopathy without macular edema, with long-term current use of insulin (HCC) Long-term insulin use ([facility]) Class 2 severe obesity due to excess calories with serious comorbidity and body mass index (BMI) of 39.0 to 39.9 in adult ([facility]) 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)- Primary Type 2 diabetes mellitus with peripheral neuropathy (HCC) Type 2 diabetes mellitus with both eyes affected by mild nonproliferative retinopathy without macular edema, with long-term current use of insulin (HCC) Long-term insulin use (HCC) Class 2 severe obesity due to excess calories with serious comorbidity and body mass index (BMI) of 37.0 to 37.9 in adult ([facility]) 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)- Primary Type 2 diabetes mellitus with peripheral neuropathy (HCC) Type 2 diabetes mellitus with both eyes affected by mild nonproliferative retinopathy without macular edema, with long-term current use of insulin (HCC) Long-term insulin use ([facility]) Class 2 severe obesity due to excess calories with serious comorbidity and body mass index (BMI) of 35.0 to 35.9 in adult ([facility]) documented in this encounter [facility] HealthcareHistory general Narrative - ReportedNoDiversityDoctor Other History general Narrative - ReportedNoDiversityDoctor Other Hospital Discharge instructions Additional Instructions DISCHARGE [...] NOT operate machinery such as power tools, [employer] mowers, [employer], sewing machines, etc. for 24 hours. - [...] years. -Follow up with PCP. -Office number [phone]. [facility] Work Phone: Reason for referral (narrative)* Consultation (Routine) - Authorized Specialty Diagnoses / Procedures Referred By Contac t Referred To Contact Cardiology Diagnoses Coronary artery disease, unspecified vessel or lesion type, unspecified whether angina present, unspecified whether [place] or transplanted heart Procedures Follow Up In Cardiology Rosalinda Torres MD [address] [facility] [address], [address] [address] Rosalinda Torres MD [address] [place] [address] [address], [address] [address] Referral ID Status Reason Start Date Expiration Date V isits Requested Visits Authorized [id number] Authorized 02/22/2024 02/21/2025 1 1 [facility] Work Phone: reason for referral (narrative)* Consultation (Routine) - Authorized Specialty Diagnoses / Procedures Referred By Contac t Referred To Contact Cardiology Diagnoses Coronary artery disease, unspecified vessel or lesion type, unspecified whether angina present, unspecified whether [place] or transplanted heart Procedures Follow Up In Cardiology Rosalinda Torres MD [address] [place] [address] [address], [address] [address] Rosalinda Torres MD [address] [place] [address] [address], [address] [address] Referral ID Status Reason Start Date Expiration Date V isits Requested Visits Authorized [id number] Authorized 08/25/2024 08/25/2025 1 1 [facility] Work Phone: reason for referral (narrative)No reason for referral information [facility] Work Phone: Summary Purpose Family History Unknown [...] Name Dates Details Family history of CABG: [facility] er(V17.49, Z82.49) Status:Active Relationship Condition Age at [...] mother Hypertension Unknown sibling Diabetes mellitus Unknown Relationship Condition Age at Onset Recorded Date/T vero father Presence of stent in coronary artery Unkn own Dementia Unknown Heart disease Unknown Presence of cardiac pacemaker Unknown History of coronary artery bypass surgery Unknown Hypertension Unknown mother Asthma Unknown grandparent Diabetes mellitus Unknown Unknown sibling Diabetes mellitus Unknown Relationship Condition Age at Onset Recorded Date/T vero grandparent Diabetes mellitus Unknown Unknown sibling Diabetes mellitus Unknown father Dementia Unknown Diabetes mellitus Unknown Heart disease Unknown Malignant neoplasm Unknown Hypertension Unknown History of replaceme nt of both shoulder joints Unknown Presence of cardiac pacemaker Unknown mother Hypertension Unknown History of joint replacement Unknown History of spinal fusion Unknown Asthma Unknown brother Diabetes mellitus Unknown brother Hypertension Unknown Psoriasis Unknown paternal grandfather Dementia Unknown Advance Directives Advance Directive Response Recorded Date/ Time Advance Directives No September 03, 2017 6:19am Advance Directive Response Recorded Date/ Time Advance Directives No September 03, 2017 7:19am Advance Directive Response Recorded Date/ Time Advance Directives No December 26, 2024 9:20am Advance Directive Response Recorded Date/ Time Advance Directives No December 8:31am Advance Directive Response Recorded Date/ Time Advance Directives No December 9:31am Chief Complaint * RITA COBB is being [...] the patient is agreeable to go on [id number] mg daily along with Zetia 10 mg [...] any trouble since her angioplasty. She has Huljsum-Wfrfi-Notcb disease and had recent surgery on the [...] has been compliant with it. 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 Please schedule with [facility]. Patient DOES NOT want to see Dr. Bryant. Please call patient to schedule Diagnosis 1 Screening for colon cancer (Z12.11) Referral Organization [facility] [place] Referring Provider First Name Charan Referring Provider Last Name Jacinto Referring Provider Specialty Family Prac pop Referred Organization [facility] Referred Provider Yasmeen Treadwell Referred Address [address] [place] [address],[address] ,[place], [place],[address] Referred Provider Specialty Gastroentero logy Referral Priority Routine General Notes Fore, Renée M 023 10:30:05 AM >Received today and sent P2P Reason stat consult and lou at Diagnosis 1 Chest pressure (R07. 89) Diagnosis 2 Shortness of breath (R06.02) Diagnosis 3 Type 2 diabetes wicho itus with diabetic neuropathy, unspecified (E11.40) Diagnosis 4 Obstructive apnea (G 47.33) Referral Organization [facility] Referring Provider First Name Charan Referring Provider Last Name Jacinto Referring Provider Specialty Family Giancarlo lord Referred Organization [facility] Referred Address [address] [place] [address] [address],[place], [place],[address] Referred Provider Specialty Cardiology Referral Priority Stat [...] J45.909 Chief Complaint Cough Per Dr. Casey J45.909 [...] stage 3, GFR 30-59 ml/min Hyperlipidemia Hyperparathyroidism [id number] Hyperuricemia Hypomagnesemia Nephrolithiasis Type 2 diabetes mellitus [...] stage 3, GFR 30-59 ml/min Hyperlipidemia Hyperparathyroidism [id number] Hyperuricemia Hypomagnesemia Nephrolithiasis Type 2 diabetes mellitus [...] stage 3, GFR 30-59 ml/min Hyperlipidemia Hyperparathyroidism [id number] Hyperuricemia Hypomagnesemia Nephrolithiasis Type 2 diabetes mellitus [...] stage 3, GFR 30-59 ml/min Hyperlipidemia Hyperparathyroidism [id number] Hyperuricemia Hypomagnesemia Nephrolithiasis Type 2 diabetes mellitus [...] region Sacroiliitis, not elsewhere classified Chief Complaint F/U AFTER LAURA SI RADHA NT INJ sciatica/charcot Screening Reason for Visit Chronic pain Osteoarthritis of spine with radiculopathy, lumbar region Sacroiliitis, not elsewhere classified Chief Complaint sciatica/charcot Screening RECHECK BACK PAIN Reason for Visit Chronic pain Osteoarthritis of spine with radiculopathy, lumbar region Sacroiliitis, not elsewhere classified Chief Complaint sciatica/charcot Screening RECHECK BACK PAIN Amb Documentation LUMBAR PAIN LUMBAR PAIN Reason for Visit Chronic pain Osteoarthritis of spine with radiculopathy, lumbar region Sacroiliitis, not elsewhere classified Chief Complaint Admit Date sciatica/charcot September 02, 2024 3: 15pm Screening September 07, 2024 8: 15am RECHECK BACK PAIN September 12, 2024 8 :03am Amb Documentation September 12, 2024 1 :30pm LUMBAR PAIN September 20, 2024 8 :14am LUMBAR PAIN September 20, 2024 9 :49am F/U CAUDAL EPIDURAL STEROID INJECTION No vember 2023 8:01am Reason for Visit Admit Date Chronic pain September 12, 2024 8 :03am Osteoarthritis of spine with radiculopat hy, lumbar region September 12, 2024 8:03am Sacroiliitis, not elsewhere classified O ctober 2023 8:03am Chronic pain October 19, 2024 8:01am Osteoarthritis of spine with radiculopat hy, lumbar region October 19, 2024 8:01am Chief Complaint Admit Date RECHECK BACK PAIN September 12, 2024 8 :03am Amb Documentation September 12, 2024 1 :30pm LUMBAR PAIN September 20, 2024 8 :14am LUMBAR PAIN September 20, 2024 9 :49am F/U CAUDAL EPIDURAL STEROID INJECTION No vember 2023 8:01am M25.511 - Pain in right shoulder Novembe r 2023 8:01am CONSULT DR ORTIZ October 25, 2024 8:44am LUMBAR PAIN 2024 7 :26am LUMBAR PAIN 2024 8 :46am Rotator cuff syndrom R Shoulder November 15, 2024 8:00am R05.9 December 08, 2024 10 :46am Reason for Visit Admit Date Chronic pain September 12, 2024 8 :03am Osteoarthritis of spine with radiculopat hy, lumbar region September 12, 2024 8:03am Sacroiliitis, not elsewhere classified O ctober 2023 8:03am Chronic pain October 19, 2024 8:01am Osteoarthritis of spine with radiculopat hy, lumbar region October 19, 2024 8:01am Arthrosis of right acromioclavicular radha nt October 25, 2024 8:44am Rotator cuff syndrome of right shoulder October 25, 2024 8:44am Chief Complaint Admit Date RECHECK BACK PAIN September 12, 2024 8 :03am Amb Documentation September 12, 2024 1 :30pm LUMBAR PAIN September 20, 2024 8 :14am LUMBAR PAIN September 20, 2024 9 :49am F/U CAUDAL EPIDURAL STEROID INJECTION No vember 2023 8:01am M25.511 - Pain in right shoulder Novembe r 2023 8:01am CONSULT DR ORTIZ October 25, 2024 8:44am LUMBAR PAIN 2024 7 :26am LUMBAR PAIN 2024 8 :46am Rotator cuff syndrom R Shoulder November 15, 2024 8:00am R05.9 December 08, 2024 10 :46am acute illness/ CXR ordered/ per Dr. Casey December 09, 2024 10:00am Reason for Visit Admit Date Chronic pain September 12, 2024 8 :03am Osteoarthritis of spine with radiculopat hy, lumbar region September 12, 2024 8:03am Sacroiliitis, not elsewhere classified O ctober 2023 8:03am Chronic pain October 19, 2024 8:01am Osteoarthritis of spine with radiculopat hy, lumbar region October 19, 2024 8:01am Arthrosis of right acromioclavicular radha nt October 25, 2024 8:44am Rotator cuff syndrome of right shoulder October 25, 2024 8:44am Cough December 09, 2024 1 0:00am Chief Complaint Admit Date F/U CAUDAL EPIDURAL STEROID INJECTION No vember 2023 8:01am M25.511 - Pain in right shoulder Novembe r 2023 8:01am CONSULT DR ORTIZ October 25, 2024 8:44am LUMBAR PAIN 2024 7 :26am LUMBAR PAIN 2024 8 :46am R05.9 December 08, 2024 10 :46am acute illness/ CXR ordered/ per Dr. Casey December 09, 2024 10:00am Rotator cuff syndrom R Shoulder December 26, 2024 8:00am F/U 1st LAURA LUMBAR MBB December 26 9:01am Reason for Visit Admit Date Chronic pain October 19, 2024 8:01am Osteoarthritis of spine with radiculopat hy, lumbar region October 19, 2024 8:01am Arthrosis of right acromioclavicular radha nt October 25, 2024 8:44am Rotator cuff syndrome of right shoulder October 25, 2024 8:44am Cough December 09, 2024 1 0:00am Chronic pain December 26, 2024 9 :01am Osteoarthritis of spine with radiculopat hy, lumbar region December 26, 2024 9:01am Chief Complaint Admit Date F/U CAUDAL EPIDURAL STEROID INJECTION No vember 2023 8:01am M25.511 - Pain in right shoulder Novembe r 2023 8:01am CONSULT DR ORTIZ October 25, 2024 8:44am LUMBAR PAIN 2024 7 :26am LUMBAR PAIN 2024 8 :46am R05.9 December 08, 2024 10 :46am acute illness/ CXR ordered/ per Dr. Casey December 09, 2024 10:00am Rotator cuff syndrom R Shoulder December 26, 2024 8:00am F/U 1st LAURA LUMBAR MBB December 26 9:01am 8 WK RECHECK December 29, 2024 7 :33am Reason for Visit Admit Date Chronic pain October 19, 2024 8:01am Osteoarthritis of spine with radiculopat hy, lumbar region October 19, 2024 8:01am Arthrosis of right acromioclavicular radha nt October 25, 2024 8:44am Rotator cuff syndrome of right shoulder October 25, 2024 8:44am Cough December 09, 2024 1 0:00am Chronic pain December 26, 2024 9 :01am Osteoarthritis of spine with radiculopat hy, lumbar region December 26, 2024 9:01am Arthrosis of right acromioclavicular radha nt December 29, 2024 7:33am Rotator cuff syndrome of right shoulder December 29, 2024 7:33am Chief Complaint Admit Date F/U CAUDAL EPIDURAL STEROID INJECTION No vember 2023 8:01am M25.511 - Pain in right shoulder Novembe r 2023 8:01am CONSULT DR ORTIZ October 25, 2024 8:44am LUMBAR PAIN 2024 7 :26am LUMBAR PAIN 2024 8 :46am R05.9 December 08, 2024 10 :46am acute illness/ CXR ordered/ per Dr. Casey December 09, 2024 10:00am F/U 1st LAURA LUMBAR MBB December 26 9:01am 8 WK RECHECK December 29, 2024 7 :33am Rotator cuff syndrom R Shoulder January 03, 2025 9:00am dementia concerns; bone structure; SOB F ebruary 2024 9:06am Reason for Visit Admit Date Chronic pain October 19, 2024 8:01am Osteoarthritis of spine with radiculopat hy, lumbar region October 19, 2024 8:01am Arthrosis of right acromioclavicular radha nt October 25, 2024 8:44am Rotator cuff syndrome of right shoulder October 25, 2024 8:44am Cough December 09, 2024 1 0:00am Chronic pain December 26, 2024 9 :01am Osteoarthritis of spine with radiculopat hy, lumbar region December 26, 2024 9:01am Arthrosis of right acromioclavicular radha nt December 29, 2024 7:33am Rotator cuff syndrome of right shoulder December 29, 2024 7:33am Cough January 09, 2025 9:06am Family history of dementia December 9:06am Chief Complaint Admit Date M25.511 - Pain in right shoulder Novembe r 2023 8:01am CONSULT DR ORTIZ October 25, 2024 8:44am LUMBAR PAIN 2024 7 :26am LUMBAR PAIN 2024 8 :46am R05.9 December 08, 2024 10 :46am acute illness/ CXR ordered/ per Dr. Casey December 09, 2024 10:00am F/U 1st LAURA LUMBAR MBB December 26 9:01am 8 WK RECHECK December 29, 2024 7 :33am dementia concerns; bone structure; SOB F ebruary 2024 9:06am Rotator cuff syndrom R Shoulder January 13, 2025 9:45am F/U 2ND LUMB MBB January 18, 2025 8:00am Reason for Visit Admit Date Arthrosis of right acromioclavicular radha nt October 25, 2024 8:44am Rotator cuff syndrome of right shoulder October 25, 2024 8:44am Cough December 09, 2024 1 0:00am Chronic pain December 26, 2024 9 :01am Osteoarthritis of spine with radiculopat hy, lumbar region December 26, 2024 9:01am Arthrosis of right acromioclavicular radha nt December 29, 2024 7:33am Rotator cuff syndrome of right shoulder December 29, 2024 7:33am Cough January 09, 2025 9:06am Diabetic neuropathy January 09, 2025 9:06am Family history of dementia December 9:06am Chronic pain January 18, 2025 8:00am Osteoarthritis of spine with radiculopat hy, lumbar region January 18, 2025 8:00am Other low back pain January 18, 2025 8:00am Chief Complaint Admit Date LUMBAR PAIN 2024 7 :26am LUMBAR PAIN 2024 8 :46am R05.9 December 08, 2024 10 :46am acute illness/ CXR ordered/ per Dr. Casey December 09, 2024 10:00am F/U 1st LAURA LUMBAR MBB December 26 9:01am 8 WK RECHECK December 29, 2024 7 :33am dementia concerns; bone structure; SOB F ebruary 2024 9:06am Rotator cuff syndrom R Shoulder January 13, 2025 9:45am F/U 2ND LUMB MBB January 18, 2025 8:00am M75.101 January 23, 2025 12:43pm Reason for Visit Admit Date Cough December 09, 2024 1 0:00am Chronic pain December 26, 2024 9 :01am Osteoarthritis of spine with radiculopat hy, lumbar region December 26, 2024 9:01am Arthrosis of right acromioclavicular radha nt December 29, 2024 7:33am Rotator cuff syndrome of right shoulder December 29, 2024 7:33am Cough January 09, 2025 9:06am Diabetic neuropathy January 09, 2025 9:06am Family history of dementia December 9:06am Chronic pain January 18, 2025 8:00am Osteoarthritis of spine with radiculopat hy, lumbar region January 18, 2025 8:00am Other low back pain January 18, 2025 8:00am Chief Complaint Admit Date LUMBAR PAIN 2024 7 :26am LUMBAR PAIN 2024 8 :46am R05.9 December 08, 2024 10 :46am acute illness/ CXR ordered/ per Dr. Casey December 09, 2024 10:00am F/U 1st LAURA LUMBAR MBB December 26 9:01am 8 WK RECHECK December 29, 2024 7 :33am dementia concerns; bone structure; SOB F ebruary 2024 9:06am F/U 2ND LUMB MBB January 18, 2025 8:00am M75.101 January 23, 2025 12:43pm Rotator cuff syndrom R Shoulder January 26, 2025 9:45am MRI RESULTS [facility] [place] [facility] January 26, 2025 12:50pm Reason for Visit Admit Date Cough December 09, 2024 1 0:00am Chronic pain December 26, 2024 9 :01am Osteoarthritis of spine with radiculopat hy, lumbar region December 26, 2024 9:01am Arthrosis of right acromioclavicular radha nt December 29, 2024 7:33am Rotator cuff syndrome of right shoulder December 29, 2024 7:33am Cough January 09, 2025 9:06am Diabetic neuropathy January 09, 2025 9:06am Family history of dementia December 9:06am Chronic pain January 18, 2025 8:00am Osteoarthritis of spine with radiculopat hy, lumbar region January 18, 2025 8:00am Other low back pain January 18, 2025 8:00am Arthrosis of right acromioclavicular radha nt January 26, 2025 12:50pm Partial tear of right rotator cuff Febru cory 2024 12:50pm Rotator cuff syndrome of right shoulder January 26, 2025 12:50pm Traumatic partial tear of biceps tendon January 26, 2025 12:50pm Chief Complaint Admit Date R05.9 December 08, 2024 10 :46am acute illness/ CXR ordered/ per Dr. Casey December 09, 2024 10:00am F/U 1st LAURA LUMBAR MBB December 26 9:01am 8 WK RECHECK December 29, 2024 7 :33am dementia concerns; bone structure; SOB F ebruary 2024 9:06am F/U 2ND LUMB MBB January 18, 2025 8:00am M75.101 January 23, 2025 12:43pm MRI RESULTS [facility] January 26, 2025 12:50pm Rotator cuff syndrom R Shoulder January 8:30am LAURA LUMB RFA L3 L5/CJ February 01, 2025 12:29pm Chief Complaint Admit Date R05.9 December 08, 2024 10 :46am acute illness/ CXR ordered/ per Dr. Casey December 09, 2024 10:00am F/U 1st LAURA LUMBAR MBB December 26 9:01am 8 WK RECHECK December 29, 2024 7 :33am dementia concerns; bone structure; SOB F ebruary 2024 9:06am F/U 2ND LUMB MBB January 18, 2025 8:00am M75.101 January 23, 2025 12:43pm MRI RESULTS [facility] January 26, 2025 12:50pm Rotator cuff syndrom R Shoulder January 8:30am LAURA LUMB RFA L3 L5/CJ February 01, 2025 12:29pm F/U LAURA LUMB RFA February 16, 2025 9:3 2am Reason for Visit Admit Date Cough December 09, 2024 1 0:00am Chronic pain December 26, 2024 9 :01am Osteoarthritis of spine with radiculopat hy, lumbar region December 26, 2024 9:01am Arthrosis of right acromioclavicular radha nt December 29, 2024 7:33am Rotator cuff syndrome of right shoulder December 29, 2024 7:33am Cough January 09, 2025 9:06am Diabetic neuropathy January 09, 2025 9:06am Family history of dementia December 9:06am Chronic pain January 18, 2025 8:00am Osteoarthritis of spine with radiculopat hy, lumbar region January 18, 2025 8:00am Other low back pain January 18, 2025 8:00am Arthrosis of right acromioclavicular radha nt January 26, 2025 12:50pm Partial tear of right rotator cuff Febru cory 2024 12:50pm Rotator cuff syndrome of right shoulder January 26, 2025 12:50pm Traumatic partial tear of biceps tendon January 26, 2025 12:50pm Chronic pain February 16, 2025 9:3 2am Osteoarthritis of spine with radiculopat hy, lumbar region February 16, 2025 9:32am Other low back pain February 16, 2025 9:3 2am Trochanteric bursitis February 16, 2025 9 :32am Chief Complaint Admit Date R05.9 December 08, 2024 10 :46am acute illness/ CXR ordered/ per Dr. Casey December 09, 2024 10:00am F/U 1st LAURA LUMBAR MBB December 26 9:01am 8 WK RECHECK December 29, 2024 7 :33am dementia concerns; bone structure; SOB F ebruary 2024 9:06am F/U 2ND LUMB MBB January 18, 2025 8:00am M75.101 January 23, 2025 12:43pm MRI RESULTS [facility] January 26, 2025 12:50pm Rotator cuff syndrom R Shoulder January 8:30am LAURA LUMB RFA L3 L5/CJ February 01, 2025 12:29pm F/U LAURA LUMB RFA February 16, 2025 9:3 2am 2 month f/u March 06, 2025 7:41 am Reason for Visit Admit Date Cough December 09, 2024 1 0:00am Chronic pain December 26, 2024 9 :01am Osteoarthritis of spine with radiculopat hy, lumbar region December 26, 2024 9:01am Arthrosis of right acromioclavicular radha nt December 29, 2024 7:33am Rotator cuff syndrome of right shoulder December 29, 2024 7:33am Cough January 09, 2025 9:06am Diabetic neuropathy January 09, 2025 9:06am Family history of dementia December 9:06am Chronic pain January 18, 2025 8:00am Osteoarthritis of spine with radiculopat hy, lumbar region January 18, 2025 8:00am Other low back pain January 18, 2025 8:00am Arthrosis of right acromioclavicular radha nt January 26, 2025 12:50pm Partial tear of right rotator cuff Febru cory 2024 12:50pm Rotator cuff syndrome of right shoulder January 26, 2025 12:50pm Traumatic partial tear of biceps tendon January 26, 2025 12:50pm Chronic pain February 16, 2025 9:3 2am Osteoarthritis of spine with radiculopat hy, lumbar region February 16, 2025 9:32am Other low back pain February 16, 2025 9:3 2am Trochanteric bursitis February 16, 2025 9 :32am CKD (chronic kidney disease) stage 2, GF R 60-89 ml/min March 06, 2025 7:41am Constipation March 06, 2025 7:41 am Diabetic neuropathy March 06, 2025 7:41 am Family history of dementia March 06 7:41am Rotator cuff syndrome of right shoulder March 06, 2025 7:41am Spondylolisthesis, lumbar region March 062024 7:41am Chief Complaint Admit Date F/U 2ND LUMB MBB January 18, 2025 8:00am M75.101 January 23, 2025 12:43pm MRI RESULTS [facility] January 26, 2025 12:50pm Rotator cuff syndrom R Shoulder January 8:30am LAURA LUMB RFA L3 L5/CJ February 01, 2025 12:29pm F/U LAURA LUMB RFA February 16, 2025 9:3 2am 2 month f/u March 06, 2025 7:41 am Reason for Visit Admit Date Chronic pain January 18, 2025 8:00am Osteoarthritis of spine with radiculopat hy, lumbar region January 18, 2025 8:00am Other low back pain January 18, 2025 8:00am Arthrosis of right acromioclavicular radha nt January 26, 2025 12:50pm Partial tear of right rotator cuff Febru cory 2024 12:50pm Rotator cuff syndrome of right shoulder January 26, 2025 12:50pm Traumatic partial tear of biceps tendon January 26, 2025 12:50pm Chronic pain February 16, 2025 9:3 2am Osteoarthritis of spine with radiculopat hy, lumbar region February 16, 2025 9:32am Other low back pain February 16, 2025 9:3 2am Trochanteric bursitis February 16, 2025 9 :32am CKD (chronic kidney disease) stage 2, GF R 60-89 ml/min March 06, 2025 7:41am Constipation March 06, 2025 7:41 am Diabetic neuropathy March 06, 2025 7:41 am Family history of dementia March 06 7:41am Rotator cuff syndrome of right shoulder March 06, 2025 7:41am Spondylolisthesis, lumbar region March 062024 7:41am Chief Complaint Admit Date 2 month f/u [...] Trochanteric bursitis May 31, 2025 8:0 3am Chief Complaint Admit Date 3 MONTHS May 31, 2025 8:03a m BILATERAL FOOT PAIN June 05, 2025 11:02 am Reason for Visit Admit Date Chronic pain May 31, 2025 8:03a m Sacroiliitis, not elsewhere classified [facility] 2024 8:03am Trochanteric bursitis May 31, 2025 8:0 3am Chief Complaint Admit Date 3 MONTHS May 31, 2025 8:03a m BILATERAL FOOT PAIN June 05, 2025 11:02 am LAURA SI JOINT INJECTION AND TROCH BURSA INJ /VW June 14, 2025 12:30pm Chief Complaint Admit Date 3 MONTHS May 31, 2025 8:03a m BILATERAL FOOT PAIN June 05, 2025 11:02 am LAURA SI JOINT INJECTION AND TROCH BURSA INJ /VW June 14, 2025 12:30pm F/U LAURA SI JOINT AND TROCH BURSA INJECTI ONS June 21, 2025 9:03am Reason for Visit Admit Date Chronic pain May 31, 2025 8:03a m Sacroiliitis, not elsewhere classified [facility] 2024 8:03am Trochanteric bursitis May 31, 2025 8:0 3am Chronic pain June 21, 2025 9:03 am Sacroiliitis, not elsewhere classified [facility] 2024 9:03am Trochanteric bursitis June 21, 2025 9: 03am Chief Complaint Admit Date 3 MONTHS May 31, 2025 8:03a m BILATERAL FOOT PAIN June 05, 2025 11:02 am LAURA SI JOINT INJECTION AND TROCH BURSA INJ /VW June 14, 2025 12:30pm F/U LAURA SI JOINT AND TROCH BURSA INJECTI ONS June 21, 2025 9:03am hos f/u July 12, 2025 7: 36am Reason for Visit Admit Date Chronic pain May 31, 2025 8:03a m Sacroiliitis, not elsewhere classified [facility] 2024 8:03am Trochanteric bursitis May 31, 2025 8:0 3am Chronic pain June 21, 2025 9:03 am Sacroiliitis, not elsewhere classified [facility] 2024 9:03am Trochanteric bursitis June 21, 2025 9: 03am Diabetic foot ulcer associat ed with type 2 diabetes mellitus, with fat laye July 12, 2025 7:36am MRSA bacteremia July 12, 2025 7: 36am Oral thrush July 12, 2025 7: 36am Additional Source Comments INFORMATION SOURCE (unrecogn ized section and content) DATE CREATED AUTHOR 07/28/2018 [facility] DATE CREATED AUTHOR AUTHOR'S ORGANIZ ATION [facility]2022 [facility] DATE CREATED AUTHOR AUTHOR'S ORGANIZ ATION 10/17/2022 [facility] DATE CREATED AUTHOR AUTHOR'S ORGANIZ ATION 04/13/2023 [facility] DATE CREATED AUTHOR AUTHOR'S ORGANIZ ATION 05/08/2023 [facility] DATE CREATED AUTHOR AUTHOR'S ORGANIZ ATION 05/08/2023 [facility] ical Center DATE CREATED AUTHOR AUTHOR'S ORGANIZ ATION 02/23/2024 [facility] DATE CREATED AUTHOR AUTHOR'S ORGANIZ ATION 05/17/2025 [facility] EPIC DATE CREATED AUTHOR AUTHOR'S ORGANIZ ATION 06/09/2025 [facility] REASON FOR VISIT (unrecogniz ed section and content) Reason Comments Follow-up 6m Specialty Diagnoses / Procedures Referred By Contac t Referred To Contact Cardiology Diagnoses Coronary artery disease, unspecified vessel or lesion type, unspecified whether angina present, unspecified whether [place] or transplanted heart Procedures Follow Up In Cardiology Rosalinda Torres MD [address], [address] [address] Rosalinda Torres MD [address], [address] [place] [address] Referral ID Status Reason Start Date Expiration Date V isits Requested Visits Authorized [id number] Pending Review 02/22/2024 02/21/2025 1 1 Reason Comments Diabetes Reason Comments Follow-up [address] 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, back4 month Follow uppap issuesSHINGRIX #2 // [facility] TRADITIONAL PLAN THROUGH SPOUSESHINGRIX #1 // [facility] TRADITIONAL PLAN THROUGH SPOUSEMODERNA BIVALENT BOOSTERAFLURIA FLU VACCINECKD and HTNreview labSLEEP LABhosp recheck/ discuss disability processDocumentationFYI/ updateDisability paperworkEmployee Program F/UCKDPt no show Employee Diabetes Ed program 4/8Clinicalneuropathy, chest pressure ,SOBfyirefillsneeds la, FACETIME [phone] Care Teams (unrecognized sec tion and content) Team Status: Active Member Role Status Josafat Casey , DO Primary Care Provider Active Team Status: Inactive Member Role Status Josafat Casey , DO Primary Care Provider Active Federico Sepulveda MD Attending Provider Active Team Status: Inactive Member Role Status Josafat Casey , DO Primary Care Provider Active Renée Watts [facility] Attending Provider Active Team Status: Inactive Member Role Status Josafat Casey DO Primary Care Provider Active Ric Ceja DPM Attending Provider Active Team Status: Inactive Member Role Status Josafat Casey , DO Primary Care Provider, Other Provider Active Elpidio Whiplpe MD Attending Provider Active Team Status: Inactive Member Role Status Josafat Casey , DO Primary Care Provider Active Mathieu Paul , DO Emergency Provider Active Team Status: Active Member Role Status Josafat Casey DO Primary Care Provider Active Renée Watts [facility] Attending Provider Active Team Status: Inactive Member Role Status Dates Charan Kuns , DO Primary Care Provider Active Dipak [...] Status: Inactive Member Role Status Dates Blas Bellamy NP-C Attending Provider Activ e Start: October 21, [...] December 30, 2023 End: December 30, 2023 Senior Payroll Specialist Relationship Specialty Start Date End Date Charan Casey DO [facility] [address] [place] [address] PCP - General Family Medicine 02/22/24 Rosalinda Torres MD [address] [facility] [address], [address] [place] [id number] Consulting Physician Cardiology 02/22/24 Team Status: Inactive [...] Role Status Josafat Casey DO Primary Care Provide r, Attending [...] Rosalinda Torres MD Specialist Active Charan Casey , DO Primary Care Provider Active Team Status: Active Member Role Status Dates Charan Casey DO Primary Care Provider Active Sta rt: March 18, 2024 Mendy Lopez LPN Attending Provider Active Sta rt: March 18, 2024 Team Status: Active Member Role Status Dates Charan Casey DO Primary Care Provider Active Sta rt: April 19, 2024 Mendy Lopez LPN Attending Provider Active [...] 2024 Team Status: Active Member Role Status Josafat Casey DO Primary [...] June 13, 2024 End: June 13, 2024 Team Status: Active Member Role Status Dates Charan Casey DO Primary Care Provider Active Sta rt: September 02, 2024 Acosta Castro DPM MS Attending Provider Active Start: September 02, 2024 Team Status: Inactive Member Role Status Dates Charan Casey DO Primary Care Provider Active Sta rt: September 07, 2024 End: September 07, 2024 Referral Self Attending Provider Active Start: O ctober 2023 End: September 07, 2024 Team Status: Inactive Member Role Status Dates Charan Casey DO Primary Care Provider Active Sta rt: September 12, 2024 End: September 12, 2024 Blas Ortiz MD Attending Provider Active Sta rt: September 12, 2024 End: September 12, 2024 Team Status: Active Member Role Status Dates Charan Casey DO Primary Care Provider Active Sta rt: September 12, 2024 ITZ Newman Attending Provider Active Start: September 12, 2024 Team Status: Inactive Member Role Status Dates Charan Casey DO Primary Care Provider Active Sta rt: September 20, 2024 End: September 20, 2024 Blas Ortiz MD Attending Provider Active Sta rt: September 20, 2024 End: September 20, 2024 Team Status: Active Member Role Status Dates Charan Casey DO Primary Care Provider Active Sta rt: September 20, 2024 Blas Ortiz MD Attending Provider, Other Provider Active Start: September 20, 2024 Team Status: Inactive Member Role Status Dates Charan Casey DO Primary Care Provider Active Sta rt: October 19, 2024 End: October 19, 2024 Blas Ortiz MD Attending Provider Active Sta rt: October 19, 2024 End: October 19, 2024 Senior Payroll Specialist Relationship Specialty Start Date End Date Charan Casey MD [address] [place] [id number] PCP - General 05/20/23 Moni Becker MD [address] [place] [id number] PCP - [facility] 07/31/24 11/29/24 Senior Payroll Specialist Relationship Specialty Start Date End Date Charan Casey DO PCP - General Family Medicine 02/22/24 Rosalinda Torres MD [address] [facility] [address], [address] [place] [address] Consulting Physician Cardiology 02/22/24 Team Status: Inactive Member Role Status Dates Charan Casey DO Primary Care Provider Active Sta rt: October 25, 2024 End: October 25, 2024 Nader Curry DO Attending Provider Active St art: October 25, 2024 End: October 25, 2024 Team Status: Inactive Member Role Status Josafat Casey DO Primary Care Provider Active Sta rt: 2024 End: 2024 Blas Ortiz MD Attending Provider Active Sta rt: 2024 End: 2024 Team Status: Active Member Role Status Josafat Casey DO Primary Care Provider Active Sta rt: 2024 Blas Ortiz MD Attending Provider, Other Provider Active Start: 2024 Team Status: Active Member Role Status Josafat Casey DO Primary Care Provider Active Sta rt: November 15, 2024 Nader Curry DO Attending Provider Active St art: November 15, 2024 Team Status: Inactive Member Role Status Josafat Casey DO Primary Care Provide r, Attending Provider Active Start: December 08, 2024 End: December 08, 2024 Team Status: Inactive Member Role Status Josafat Casey DO Primary Care Provide r, Attending Provider Active Start: December 09, 2024 End: December 09, 2024 Team Status: Active Member Role Status Josafat Casey DO Primary Care Provider Active Sta rt: December 26, 2024 Nader Curry DO Attending Provider Active St art: December 26, 2024 Team Status: Inactive Member Role Status Josafat Casey DO Primary Care Provider Active Sta rt: December 26, 2024 End: December 26, 2024 Blas Ortiz MD Attending Provider Active Sta rt: December 26, 2024 End: December 26, 2024 Team Status: Inactive Member Role Status Josafat Casey DO Primary Care Provider Active Sta rt: December 29, 2024 End: December 29, 2024 Nader Curry DO Attending Provider Active St art: December 29, 2024 End: December 29, 2024 Team Status: Active Member Role Status Josafat Casey DO Primary Care Provider Active Sta rt: January 03, 2025 Nader Curry DO Attending Provider Active St art: January 03, 2025 Team Status: Inactive Member Role Status Dates Charan Casey DO Primary Care Provide r, Attending Provider Active Start: January 09, 2025 End: January 09, 2025 Senior Payroll Specialist Relationship Specialty Start Date End Date Charan Casey MD [facility] [place] [id number] PCP - General 05/20/23 Team Status: Active Member Role Status Josafat Casey DO Primary Care Provider Active Sta rt: January 09, 2025 Blas Ortiz MD Attending Provider Active Sta rt: January 09, 2025 Team Status: Active Member Role Status Josafat Casey DO Primary Care Provider Active Sta rt: January 13, 2025 Nader Curry DO Attending Provider Active St art: January 13, 2025 Team Status: Inactive Member Role Status Josafat Casey DO Primary Care Provider Active Sta rt: January 18, 2025 End: January 18, 2025 Blas Ortiz MD Attending Provider Active Sta rt: January 18, 2025 End: January 18, 2025 Team Status: Inactive Member Role Status Josafat Casey DO Primary Care Provider Active Sta rt: January 23, 2025 End: January 23, 2025 Nader Curry DO Attending Provider Active St art: January 23, 2025 End: January 23, 2025 Team Status: Active Member Role Status Josafat Casey DO Primary Care Provider Active Sta rt: January 26, 2025 Nader Curry DO Attending Provider Active St art: January 26, 2025 Team Status: Inactive Member Role Status Josafat Casey DO Primary Care Provider Active Sta rt: January 26, 2025 End: January 26, 2025 Nader Curry DO Attending Provider Active St art: January 26, 2025 End: January 26, 2025 Team Status: Active Member Role Status Dates Charan Casey DO Primary Care Provider Active Sta rt: January 31, 2025 Nader Curry DO Attending Provider Active St art: January 31, 2025 Team Status: Inactive Member Role Status Dates Charan Casey DO Primary Care Provider Active Sta rt: February 01, 2025 End: February 01, 2025 Blas Ortiz MD Attending Provider Active Sta rt: February 01, 2025 End: February 01, 2025 Team Status: Active Member Role Status Dates Charan Casey DO Primary Care Provider Active Sta rt: February 01, 2025 Blas Ortiz MD Attending Provider Active Sta rt: February 01, 2025 Team Status: Inactive Member Role Status Josafat Casey DO Primary Care Provider Active Sta rt: February 16, 2025 End: February 16, 2025 Blas Ortiz MD Attending Provider Active Sta rt: February 16, 2025 End: February 16, 2025 Team Status: Inactive Member Role Status Dates Charan Casey DO Primary Care Provide r, Attending Provider Active Start: March 06, 2025 End: March 06, 2025 Team Status: Inactive Member Role Status Dates Cahran Casey DO Primary Care Provider Active Sta rt: January 31, 2025 End: January 31, 2025 Nader Curry DO Attending Provider Active St art: January 31, 2025 End: January 31, 2025 Senior Payroll Specialist Relationship Specialty Start Date End Date Charan Casey DO [address] [place] [address] PCP - General 05/20/23 Team Status: Inactive Member Role Status Josafat Casey DO Primary Care Provider Active Sta rt: March 06, 2025 End: March 06, 2025 Charna Casey DO Attending Provider Active Start: March 06, 2025 End: March 06, 2025 Team Status: Inactive Member Role Status Dates Charan Casey DO Primary Care Provider Active Sta rt: May 31, 2025 End: May 31, 2025 Blas Ortiz MD Attending Provider Active Sta rt: May 31, 2025 End: May 31, 2025 Team Status: Inactive Member Role Status Dates Charan Kuns , DO Primary Care Provider Active Sta rt: June 05, 2025 End: June 05, 2025 Acosta Castro DPM MS Attending Provider Active Start: June 05, 2025 End: June 05, 2025 Team Status: Inactive Member Role Status Dates Charan Casey DO Primary Care Provider Active Sta rt: June 14, 2025 End: June 14, 2025 Blas Ortiz MD Attending Provider Active Sta rt: June 14, 2025 End: June 14, 2025 Team Status: Active Member Role Status Dates Charan Casey DO Primary Care Provider Active Sta rt: June 14, 2025 Blas Ortiz MD Attending Provider Active Sta rt: June 14, 2025 Team Status: Inactive Member Role Status Dates Charan Casey DO Primary Care Provider Active Sta rt: June 21, 2025 End: June 21, 2025 Blas Ortiz MD Attending Provider Active Sta rt: June 21, 2025 End: June 21, 2025 Team Status: Active Member Role Status Dates Charan Casey DO Primary Care Provider Active Sta rt: June 28, 2025 Gustavo Cuevas DO Attending Provider Active Start : June 28, 2025 Team Status: Active Member Role Status Dates Charan Casey DO Primary Care Provider Active Sta rt: June 29, 2025 Karla Lyons MD Attending Provider Active Star t: June 29, 2025 Team Status: Active Member Role Status Josafat Casey DO Primary Care Provider Active Sta rt: June 30, 2025 Karla Lyons MD Attending Provider Active Star t: June 30, 2025 Team Status: Inactive Member Role Status Dates Charan Casey DO Primary Care Provider Active Sta rt: July 12, 2025 End: July 12, 2025 Charan Casey DO Attending Provider Active Start: July 12, 2025 End: July 12, 2025 Goals (unrecognized section and content) Goals may [...] BE BASED ON THE PRIMARY CLINICAL RECORDS. [facility]. provides no warranty or guarantee of the accuracy or completeness of information in this document.
== END 2025-07-12 13:47 | disposition home or self-care (01) ==
LOC: WC 13:47
PROVIDERS: PCP Family Medicine; Visit Provider Podiatrist Foot & Ankle Surgery
DX: E11.621 Type 2 diabetes mellitus with foot ulcer (principal); L97.423 Non-pressure chronic ulcer of left heel and midfoot with necrosis of muscle
CPT/HCPCS: 11043; 11046

== ENCOUNTER 2025-07-24 12:32 | Outpatient (OUT) | payer MEDICARE, SELFPAY | END 2025-07-24 12:33 | disposition home or self-care (01) | PROVIDERS: PCP Family Medicine; Visit Provider Hospitalist | DX: N17.9 Acute kidney failure, unspecified (principal); L08.89 Other specified local infections of the skin and subcutaneous tissue | CPT/HCPCS: 36415; 87040 ==

== ENCOUNTER 2025-08-02 08:54 | Outpatient (OUT) | payer MEDICARE, SELFPAY ==
--- OUTSIDE RECORDS SUMMARY | 2025-07-12 05:00 | XMS_ITS ---
Author Organization The [facility] in [place] Address [address] [place] [address] Care Team Providers Care Insole Lip Turner Name Role Phone Charan Delgadillo DO Primary Care Provider Torres Cid [facility] [phone] REASON FOR VISIT 1 year f/u Encounters Encounter Location Date Provider Diagnosis [facility] (PODIATRY) [address] [place] [address] [address] [place] [address] 07/12/2025 Torres Fernandez Plan Of Treatment No Information Progress Notes * Corin COBBanithaDOB:1960 (64 yo F)Acc No.[id number]:07/12/2025 UNLOCKED PROGRESS NOTE Follow Up Patient: Joy CHAVEZ Provider: Dani Fernandez DPM, MS :1960 A ge:64 Y S ex:Female Date:07/12/2025 [address]-[address] Pcp:Charan Delgadillo DO Subjective: * Chief Complaints: * 1 . 1 year f/u. * Medical History: Objective: * Vitals: Assessment: Plan: * Treatment: * * Electronic signature of Agapito Fernandez DPM on 08/02/2025 at 09:02 AM EDT Sign off status: Pending Visit Status: O FF CANC (OFFICE CANCEL) * Provider: Dani Fernandez DPM, MS Date: 07/12/2025 Generated for Printi ng/Faxing/eTransmitting on: 08/02/2025 09:02 AM EDT
--- OUTSIDE RECORDS SUMMARY | 2025-07-27 08:15 | XMS_ITS | Encounter Summary ---
Author Organization [facility] Address [address] [facility] [place] [address] Care Team Providers Care Visual Education Teacher Name Role Phone Brysonbryn Charan Louise DO Primary Care Provider [phone] Reason for Visit * Reason Comments Diabetes Encounter Details Date Type Department Care Team (Latest Contact Info) Description 07/27/2025 8:15 AM EDT [facility] [address] [facility] [address] [place] [address] Shaina Figueroa DO [address] [facility] [address] [place] [address] Type 2 diabetes mellitus with peripheral neuropathy (HCC) (Primary Dx); 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) Social History Tobacco Use Types Packs/Day Years Used Date Smoking Tobacco: Never Smokeless Tobacco: Never Alcohol Use Standard Drinks/Week Comments Never 0 (1 standard drink = 0.6 oz pure alcohol) caffeine: 1-2 cups per day coffee B1300 Health Literacy Answer Date Recor ded How often do you need to hav e someone help you when you read instructions, pamphlets, or other written material from your doctor or pharmacy? Never 07/26/2025 Humiliation, Afraid, Rape, and Kick questionnair e Answer Date Recorded Within the last year, have y ou been afraid of your partner or ex-partner? No 07/26/2025 Within the last year, have y ou been humiliated or emotionally abused in other ways by your partner or ex-partner? No Within the last year, have y ou been kicked, hit, slapped, or otherwise physically hurt by your partner or ex-partner? No 07/26/2025 Within the last year, have y ou been raped or forced to have any kind of sexual activity by your partner or ex-partner? No 07/26/2025 Social Connection and Isolat ion Panel [NHANES] Answer Date Recorded In a typical week, how many times do you talk on the phone with family, friends, or neighbors? More than three times a week 07/26/2025 How often do you get togethe r with friends or relatives? Once a week 07/26/2025 How often do you attend [facility] or christianity services? More than 4 times per year 07/26/2025 Do you belong to any clubs o r organizations such as orthodox groups, unions, fraternal or athletic groups, or school groups? No 07/26/2025 How often do you attend meet ings of the clubs or organizations you belong to? Never 07/26/2025 Are you , , di vorced, , never , or living with a partner? 07/26/2025 AUDIT-C Answer Date Recorded Q1: How often do you have a drink containing alcohol? Never 07/26/2025 Q2: How many drinks containi ng alcohol do you have on a typical day when you are drinking? Patient does not drink Q3: How often do you have si x or more drinks on one occasion? Never 07/26/2025 Overall Financial Resource Strain (CARDIA) Answe r Date Recorded How hard is it for you to pa y for the very basics like food, housing, medical care, and heating? Not hard at all 07/26/2025 PHQ-2 Answer Date Recorded Patient Health Questionnaire-2 Score 0 05/15/2025 [facility] - Occupational Stress Questionnaire Answer Date Recorded Do you feel stress - tense, restless, nervous, or anxious, or unable to sleep at night because your mind is troubled all the time - these days? To some extent 02/08/2024 Exercise Vital Sign Answer Date Recorde d On average, how many days pe r week do you engage in moderate to strenuous exercise (like a brisk walk)? Patient declined On average, how many minutes do you engage in exercise at this level? Patient declined 02/08/2024 Hunger Vital Sign Answer Date Recorded Within the past 12 months, y ou worried that your food would run out before you got the money to buy more. Never true 07/26/20 25 Within the past 12 months, t he food you bought just didn't last and you didn't have money to get more. Never true 07/26/2025 PRAPARE - Transportation Answer Date Re corded In the past 12 months, has l ack of transportation kept you from medical appointments or from getting medications? No 07/01 In the past 12 months, has l ack of transportation kept you from meetings, work, or from getting things needed for daily living? No 07/26/2025 Housing Stability Vital Sign Answer Luis e Recorded In the last 12 months, was t here a time when you were not able to pay the mortgage or rent on time? No 02/08/2024 In the last 12 months, how many places have you lived? 1 02/08/2024 In the last 12 months, was t here a time when you did not have a steady place to sleep or slept in a penitentiary (including now)? No 02/08/2024 Housing Stability Vital Sign Answer Luis e Recorded In the last 12 months, was t here a time when you were not able to pay the mortgage or rent on time? No 07/26/2025 In the past 12 months, how m any times have you moved where you were living? 0 07/26/2025 At any time in the past 12 m [facility], were you homeless or living in a penitentiary (including now)? No 07/26/2025 Comments Unknown Sex and Gender Information Value Date Recorded Sex Assigned at Female 05/20/2023 8:32 AM EDT Legal Sex Female 7:19 PM EDT Gender Identity Female 05/20/2023 8:32 AM EDT Sexual Orientation Not on file documented as of this encounter Last Filed Vital Signs Vital Sign Reading Time Taken Comments Blood Pressure 122/62 07/27/2025 8:13 AM EDT Pulse 65 07/27/2025 8:13 AM EDT Temperature 36.4 C (97.5 F) 07/27/2025 8:13 AM EDT Respiratory Rate - - Oxygen Saturation 98% 07/27/2025 8:13 AM EDT Inhaled Oxygen Concentration - - Weight - - Height 167.6 cm (5' 6 ) 07/27/2025 8:13 AM EDT Body Mass Index - - documented in this encounter Progress Notes * Shaina Figueroa DO - 07/27/2025 9:29 AM EDTAssociated Problem(s): Type 2 diabetes mellitus [...] if they have any problems or questions. Joy Asher control is stable overall. , Will stay on current medications. , The patient is wearingtheir cgm on a daily basis and making decisions in regards to adjusting insulin daily as well for at least the last 60 days , Instructions given today include: Insulin instructions and Dietary education. Will stay on lower dose of tresiba as her numbers look pretty good with this and I don't want to increase the risk for her having low bg. * Shaina Figueroa DO - 07/27/2025 8:15 AM EDT Images from the original note were not included. Joy Asher is a 64 y.o. female presents with chief complaint of Diabetes HPI: Diabetes Mellitus Follow-up: Joy Asher is here for follow-up evaluation of diabetes mellitus. The initial diagnosis of diabetes was made in 2006 Diabetes complications: retinopathy and peripheral neuropathy Hx of diabetes medications tried: metformin, jardiance She has been checking her blood glucose with a Dexcom G7 CGM - LINKED - on a daily basis. Bg running smooth overall but will dip down before lunch frequently and sometimes overnight. Last A1c: 8.1 (05/15/25) Last eye exam: 04/20/2024 Current concerns include: She had 4 steroids injections in May, 2 in her SI joints and both hips She had left foot surgery on June 29 for a open wound on the bottom of her foot. Bg levels were really higher the week prior to surgery. Since surgery bg levels are improving BG levels: improving Diet: low carb, increase protein Drinks: water Exercise: none Hypoglycemia: 2-3 times a week around 12 am Has been taking 30 units of tresiba due to being changed to a U-200 dose pen and not being sure on how much she should be taking. SUBJECTIVE: PROBLEM LIST SOCIAL ALLERGIES: Patient Active Problem List Diagnosis Type 2 diabetes mellitus with peripheral neuropathy (HCC) 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 ([facility]) Long-term insulin use ([facility]) Spondylolisthesis at L3-L4 level S/P laparoscopic cholecystectomy Other hammer toe(s) (acquired), left foot Chronic foot ulcer ([facility]) Carpal tunnel syndrome of right wrist Class 2 severe obesity with serious comorbidity and body mass index (BMI) of 35.0 to 35.9 in adult ([facility]) Type 2 diabetes mellitus with both eyes affected by mild nonproliferative retinopathy without macular edema, with long-term current use of insulin ([facility]) Social History Tobacco Use Smoking status: Never Smokeless tobacco: Never Substance Use Topics Alcohol use: Never Comment: caffeine: 1-2 cups per day coffee Drug use: Never Allergies Allergen Reactions Levofloxacin GI intolerance Head ache Erythromycin Unknown Erythromycin Base Nausea Only Synopsis SmartLink 07/27/2025 00:00 05/15/2025 Antidiabetic medications Insulin Degludec 60 Units Daily SC-Discontinued (Dose adjustm) 60 Units Daily SC Insulin Degludec 30 Units Daily SC Insulin Lispro 8 units breakfast, 12 units lunch/dinner plus correction 1:30 > 150 mg/dl (max daily 100 units) (100 UNIT/ML SOPN) -Discontinued (Reorder) Insulin Lispro 10 units breakfast, 14 units dinner plus correction 1:30 > 150 mg/dl (max daily 50 units) (100 UNIT/ML SOPN) 10 units breakfast, 14 units dinner plus correction 1:30 > 150 mg/dl(max daily 50 units) (100 UNIT/ML SOPN) Labs [facility] HEMOGLOBIN A1C/HEMOGLOBIN.TOTAL:MFR:PT:BLD:QN: 8.1 Outpatient prescription Medication marked as long-term The ASCVD Risk score (Johnnie MOTA, et [...] Negative for polydipsia, polyphagia and polyuria. OBJECTIVE: 07/27/2025 8:13 AM 05/15/2025 10:29 AM 02/14/2025 9:25 AM Vitals BMI 35.86 kg/m2 35.86 kg/m2 37.12 kg/m2 Systolic 122 110 136 Diastolic 62 76 72 Heart Rate 65 67 74 Temp 97.5 ??F 97.2 ??F 97.7 ??F Height (in) 5' 6 5' 6 5' 6 Weight (lb) 222.2 230 Visit Report Report Report Report Physical Exam [...] 2 diabetes mellitus with peripheral neuropathy (HCC) - Primary During the appointment today all [...] if they have any problems or questions. Joy Asher control is stable overall. , Will stay on current medications. , The patient is wearingtheir cgm on a daily basis and making decisions in regards to adjusting insulin daily as well for at least the last 60 days , Instructions given today include: Insulin instructions and Dietary education. Will stay on lower dose of tresiba as her numbers look pretty good with this and I don't want to increase the risk for her having low bg. Relevant Medications insulin degludec (Tresiba FlexTouch) 200 UNIT/ML injection 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 ([facility]) Long-term insulin use ([facility]) Class 2 severe obesity with serious comorbidity and body mass index (BMI) of 35.0 to 35.9 in adult ([facility]) Type 2 diabetes mellitus with both eyes affected by mild nonproliferative retinopathy without macular edema, with long-term current use of insulin ([facility]) Follow up in about 3 months (around 10/27/2025) for Recheck. Patient's Medications New Prescriptions No [...] day at the same time. BIOFLAVONOID PRODUCTS (TIMOTHY-C) TABLET as directed Orally COENZYME Q10 (CO Q 10 PO) Take by mouth CONTINUOUS BLOOD GLUC ELEMENTARY INSTRUCTIONAL COACH (DEXCOM G7 ELEMENTARY INSTRUCTIONAL COACH) DEVICE USE DIRECTED CONTINUOUS BLOOD GLUC SENSOR (DEXCOM G7 SENSOR) MISC USE DIRECTED, CHANGE EVERY 10 DAYS GNP VITAMIN D MAXIMUM STRENGTH 50 MCG (2000 UT) TABLET Take by mouth Daily. INSULIN LISPRO (HUMALOG KWIKPEN) 100 UNIT/ML INJECTION 10 units breakfast, 14 units dinner plus correction 1:30 > 150 mg/dl (max daily 50 units) INSULIN PEN NEEDLE 31G X 8 MM MISC Injection subcutaneous tid METOPROLOL SUCCINATE XL (TOPROL-XL) 200 MG 24 [...] Modified Medications Modified Medication Previous Medication INSULIN DEGLUDEC (TRESIBA FLEXTOUCH) 200 UNIT/ML INJECTION insulin degludec (Tresiba FlexTouch) 200UNIT/ML injection Inject 30 Units under the skin Daily Inject 60 Units under the skin Daily Discontinued Medications No medications on file I have reviewed and reconciled the history and medication list with the patient today. documented in this encounter Plan of Treatment Upcoming Encounters Date Type Department Care Team (Late st Contact Info) Description 08/15/2025 9:45 AM EDT Office Visit [facility] [address] [place] [address] Shaina Figueroa DO [address] [place] [address] 10/24/2025 10:30 AM EST Office Visit [facility] [address] [place] [address] Shaina Figueroa DO [address] [place] [address] documented as of this encounter Visit Diagnoses Diagnosis Type 2 diabetes mellitus with peripheral [...] (BMI) of 35.0 to 35.9 in adult ([facility]) documented in this encounter Care Teams Visual Education Teacher Relationship Specialty Start Date End Date Charan Delgadillo DO [facility][note 3] [place] [address] PCP - General 05/20/23 documented as of this encounter
--- OUTSIDE RECORDS SUMMARY | 2025-08-02 08:56 | XMS_ITS | Encounter Summary ---
Author Organization [facility] Address [address] [place] [id number] Phone Care Team Providers Care Morgue Librarian Name Role Phone Charan Delgadillo DO Primary Care Provider [phone] Charan Delgadillo DO Primary Care Provider [phone] Rosalinda Cordova MD Unavailable [phone] Encounter Details Date Type Department Care Team (Late st Contact Info) Description 08/13/2022 Orders Only [facility] [address] [place] [address] Conversion, Onbase Social History Tobacco Use Types [...] Description 11/03/2025 2:30 PM EST Office Visit [facility] [address] [facility] [address] [place] [address] Rosalinda Cordova MD [address] [facility] [address] [place] [address] Scheduled Orders Name Type Priority Associated Diagnoses Orde r Schedule OUTSIDE LAB SCAN Lab Ordered: 08/13/2022 documented as of this encounter Visit Diagnoses Not on filedocumented in this encounter Care Teams Morgue Librarian Relationship Specialty Start Date End Date Charan Delgadillo DO PCP - General 07/09/20 02/21/24 Charan Delgadillo DO PCP - General Family Medicine 02/22/24 Rosalinda Cordova MD [address] [facility] [address], [place] [address] Consulting Physician Cardiology 02/22/24 documented as of this encounter
--- OUTSIDE RECORDS SUMMARY | 2025-08-02 08:56 | XMS_ITS | Clinical Summary ---
Author Organization [facility] Address [address] [place] [address] Phone Care Team Providers Care Production Internship Name Role Phone Charan Delgadillo DO Primary Care Provider [phone] Rosalinda Cordova MD Unavailable [phone] Allergies Active Allergy Reactions Criticality Noted Date [...] daily. Active ergocalciferol (Vitamin D-2) 1.25 MG (56956 UT) capsule Take 1 capsule (50,000 Units) [...] 10 mg tabletIndications :Atherosclerotic heart disease of [place] coronary artery without angina pectoris Take 1 tablet (10 mg) by mouth 3 (three) times a week. 36 tablet 3 07/15/2025 12:43 PM EDT 4 10/07/20 25 Active Active Problems Problem Noted Date [...] Description 11/03/2025 2:30 PM EST Office Visit [facility] [address] [facility] [address] [place] [address] Rosalinda Cordova MD 703 [facility], [address] [place] [address] Health Maintenance Due Date Last Done Comments [...] Additional history exists Influenza Vaccine (#1) 2025 , 08/30/2021, 08/30/2019, Additional history exists Colonoscopy 10/06/2033 [...] patient's age to complete this topic Insurance [facility] [employer] MEDICARE [employer] [place] MEDICARE [facility] [employer] MEDICARE [employer] [place] MED[employer]ARE Care Teams Production Internship Relationship Specialty Start Date End Date Charan Delgadillo DO PCP - General Family Medicine 02/22/24 Rosalinda Cordova MD 703 [facility] 2, [address] [address] Consulting Physician Cardiology 02/22/24
--- OUTSIDE RECORDS SUMMARY | 2025-08-02 08:56 | XMS_ITS | Encounter Summary ---
Author Organization [facility] Address [address] [place] [address] Phone Care Team Providers Care Sporting Goods Sales Manager Name Role Phone Yeison Delgadilloan Dani BASSETT Primary Care Provider [phone] Rosalinda Cordova MD Unavailable [phone] Encounter Details Date Type Department Care Team (Late st Contact Info) Description 12/08/2024 Scanned Document [facility] [address] [place] [address] Scanning, Generic Provider Social History [...] Description 11/03/2025 2:30 PM EST Office Visit [facility] [address] [address] Rosalinda Cordova MD 703 [facility] 2, [address] [place] [address] documented as of this encounter [...] documented as of this encounter Care Teams Sporting Goods Sales Manager Relationship Specialty Start Date End Date Charan Delgadillo DO PCP - General Family Medicine 02/22/24 Rosalinda Cordova MD 703 [facility] 2, [place] [id number] Consulting Physician Cardiology 02/22/24 documented as of this encounter
--- OUTSIDE RECORDS SUMMARY | 2025-08-02 08:56 | XMS_ITS | Encounter Summary ---
Author Organization [facility] Address [address] [place] [id number] Phone Care Team Providers Care Robotic Weld Technician Name Role Phone Charan Delgadillo DO Primary Care Provider [phone] Charan Delgadillo DO Primary Care Provider [phone] Rosalinda Cordova MD Unavailable [phone] Encounter Details Date Type Department Care Team (Late st Contact Info) Description 03/06/2023 Orders Only [facility] [address] [place] [address] Conversion, Onbase Social History Tobacco Use Types [...] Description 11/03/2025 2:30 PM EST Office Visit [facility] 703 [facility] [address] [place] [address] Rosalinda Cordova MD 703 [facility] 2, [address] [place] [address] Scheduled Orders Name Type Priority Associated Diagnoses Orde r Schedule OUTSIDE LAB SCAN Lab Ordered: 03/06/2023 documented as of this encounter Visit Diagnoses Not on filedocumented in this encounter Care Teams Robotic Weld Technician Relationship Specialty Start Date End Date Charan Delgadillo DO PCP - General 07/09/20 02/21/24 Charan Delgadillo DO PCP - General Family Medicine 02/22/24 Rosalinda Cordova MD 703 [facility] 2, [place] [address] Consulting Physician Cardiology 02/22/24 documented as of this encounter
--- OUTSIDE RECORDS SUMMARY | 2025-08-02 08:56 | XMS_ITS | Encounter Summary ---
Author Organization [facility] Address [address] [place] [address] Phone Care Team Providers Care Surface Grinder Tender Name Role Phone Yeison Delgadilloan Dani BASSETT Primary Care Provider [phone] Rosalinda Cordova MD Unavailable [phone] Encounter Details Date Type Department Care Team (Late st Contact Info) Description 02/29/2024 Scanned Document [facility] [address] [place] [address] Scanning, Generic Provider Social History [...] Office Visit [facility] 703 [facility] 250 [place] [address] Rosalinda Cordova MD 703 [facility] [address], [address] [place] [address] documented as of this encounter Visit Diagnoses Not on filedocumented in this encounter Additional Health Concerns Assessment Noted Time A fall risk assessment has been complete d for the patient 02/22/2024 2:26 PM EDT documented as of this encounter Care Teams Surface Grinder Tender Relationship Specialty Start Date End Date Charan Delgadillo DO PCP - General Family Medicine 02/22/24 Rosalinda Cordova MD 703 [facility] 2, [place] [address] Consulting Physician Cardiology 02/22/24 documented as of this encounter
--- OUTSIDE RECORDS SUMMARY | 2025-08-02 08:56 | XMS_ITS | Encounter Summary ---
Author Organization [facility] Address [address] [place] [id number] Phone Care Team Providers Care Bobbin Inspector Name Role Phone Charan Delgadillo DO Primary Care Provider [phone] Charan Delgadillo DO Primary Care Provider [phone] Rosalinda Cordova MD Unavailable [phone] Encounter Details Date Type Department Care Team (Late st Contact Info) Description 04/30/2022 Orders Only [facility] [address] [place] [address] Conversion, Onbase Social History Tobacco Use Types [...] EST Office Visit [facility] 703 [facility] 250 [place] [address] Rosalinda Cordova MD 703 [facility] 2, [address] [place] [address] Scheduled Orders Name Type Priority Associated Diagnoses Orde r Schedule SLEEP STUDY ORDER - ONBASE SCAN Sleep Center Ordered: 022 documented as of this encounter Visit Diagnoses Not on filedocumented in this encounter Care Teams Bobbin Inspector Relationship Specialty Start Date End Date Charan Delgadillo DO PCP - General 07/09/20 02/21/24 Charan Delgadillo DO PCP - General Family Medicine 02/22/24 Rosalinda Cordova MD 703 [facility] 2, [place] [address] Consulting Physician Cardiology 02/22/24 documented as of this encounter
--- OUTSIDE RECORDS SUMMARY | 2025-08-02 08:58 | XMS_ITS | Encounter Summary ---
Author Organization [facility] Address [address] [facility] [place] [address] Care Team Providers Care Vault Installer Name Role Phone Leona Charan Louise DO Primary Care Provider [phone] Encounter Details Date Type Department Care Team (Late st Contact Info) Description 07/27/2025 Bamboo flowsheet [facility] [address] [facility] [address] [place] [address] Shaina Figueroa DO [address] [facility] [address] [place] [address] Social History Tobacco Use Types Packs/Day Years [...] week 07/26/2025 How often do you attend chur or bahai services? More than 4 times per year 07/26/2025 Do you belong to any clubs o r organizations such as mosque groups, unions, fraternal or athletic groups, or [...] Recorded Patient Health Questionnaire-2 Score 0 05/15/2025 [facility] - Occupational Stress [...] place to sleep or slept in a fdc (including now)? No 02/08/2024 Housing Stability Vital Sign Answer Luis e Recorded In the last 12 months, was t here a time when you were not able to pay the mortgage or rent on time? No 07/26/2025 In the past 12 months, how m any times have you moved where you were living? 0 07/26/2025 At any time in the past 12 m ont, were you homeless or living in a fdc (including now)? No 07/26/2025 Comments Unknown Sex [...] Description 08/15/2025 9:45 AM EDT [facility] [address] [place] [address] Shaina Figueroa, DO [address] [place] [address] 10/24/2025 10:30 AM EST Office Visit [facility] [address] [place] [address] Shaina Figueroa DO [address] [place] [address] documented as of this encounter Visit Diagnoses Not on filedocumented in this encounter Care Teams Vault Installer Relationship Specialty Start Date End Date Charan Delgadillo DO [address] [place] [id number] PCP - General 05/20/23 documented as of this encounter
--- OUTSIDE RECORDS SUMMARY | 2025-08-02 08:58 | XMS_ITS | Clinical Summary ---
Author Organization [facility] Healthcare Address [address] [facility] [place] [address] Care Team Providers Care Retail Service Representative Name Role Phone Charan Delgadillo DO Primary Care Provider [phone] Allergies Active Allergy Reactions Criticality Noted Date Comments Erythromycin Unknown 05/15/2025 Erythromycin Base Nausea Only 05/19/2023 Levofloxacin GI intolerance High 02/22/2024 Head ache Medications allopurinol (Zyloprim) 100 MG tablet Take 100 mg by mouth in the morning. 02/06/20 23 Active ASPIRIN 81 MG chewable tablet 1 (one) time each day at the same time. Active GNP Vitamin D Maximum Strength 50 MCG (1999 UT) tablet Take by mouth Daily. 12/30/19 23 Active metoprolol succinate XL (Toprol-XL) 200 MG 24 hr tablet 1 (one) time each day at the same time. Active Benicar 40 MG tablet 1 (one) time each day at the same time. Active omega-3 acid ethyl esters (Lovaza) 1 g capsule Take 2 g by mouth in the morning and 2 g before bedtime. 03/04/20 23 Active rosuvastatin (Crestor) 10 MG tablet TAKE 1 TABLET BY MOUTH ONCE DAILY ON mondays, wednesdays, AND fridays11/12/20 22 Active pregabalin (Lyrica) 150 MG capsule Take 150 mg by mouth at bedtime Active Continuous Blood Gluc Mixer Crane Operator (Dexcom G7 Mixer Crane Operator) device USE DIRECTED 07/16/20 23 Active Continuous Blood Gluc Sensor (Dexcom G7 Sensor) misc USE DIRECTED, CHANGE EVERY 10 DAYS 09/19/20 23 Active Ascorbic Acid (vitamin C) 1000 MG tablet Take 1,000 mg by mouth in the morning. Active b complex vitamins capsule Take 1 capsule by mouth in the morning. Active Bioflavonoid Products (Brooke-C) tablet as directed Orally Active Coenzyme Q10 (CO Q 10 PO) Take by mouth Act jenna insulin lispro (HumaLOG KWIKPEN) 100 UNIT/ML injectionIndi cations:Type 2 diabetes mellitus with peripheral neuropathy (HCC) 10 units breakfast, 14 units dinner plus correction 1:30 > 150 mg/dl (max daily 50 units) 15 mL 3 05/15/20 25 Active insulin pen needle 31G X 8 mm miscIndicatio ns:Type 2 diabetes mellitus with peripheral neuropathy (HCC) Injection subcutaneous tid 100 each 3 07/26/20 25 026 Active insulin degludec (Tresiba FlexTouch) 200 UNIT/ML injectionIndi cations:Type 2 diabetes mellitus with peripheral neuropathy (HCC) Inject 30 Units under the skin Daily 9 mL 3 07/27/20 25 Active insulin degludec (Tresiba FlexTouch) 200 UNIT/ML injectionIndi cations:Type 2 diabetes mellitus with peripheral neuropathy (HCC) Inject 60 Units under the skin Daily 9 mL 3 02/15/20 25 025 Discontinued(D ose adjustment) insulin pen needle (Drug Mcdonough Unifine Pentips) 31G X 8 mm miscIndicatio ns:Type 2 diabetes mellitus with peripheral neuropathy (HCC) Injection subcutaneous tid 300 each 3 05/15/20 25 025 Discontinued(R eorder) insulin pen needle (BD Pen Needle Eloise Ultrafine) 32G x 4 mm miscIndicatio ns:Type 2 diabetes mellitus with peripheral neuropathy (HCC) Injection subcutaneous tid 100 each 12 07/24/20 25 025 Discontinued Active Problems Problem Noted Date Diagnosed Date Type 2 diabetes mellitus wit h both eyes affected by mild nonproliferative retinopathy without macular edema, with long-term current use of insulin 04/21/2024 Type 2 diabetes mellitus with peripheral neuropa thy 10/12/2023 Assessment & Plan (07/27/2025 9:29 AM EDT): During the appointment today all pertinent labs, imaging, health maintenance, and glucose readings were reviewed. Encouraged to check blood glucose throughout the day with some fasting and some PP readings. They are to bring their glucose meter/cgm in to all appointments. All of the patients questions, treatment options, and current care plan and goals were discussed. A copy of this along with pertinent instructions were [...] the risk for her having low bg. Assessment & Plan (05/15/2025 11:07 AM EDT): During the appointment today all pertinent labs, imaging, health maintenance, and glucose readings were reviewed. Encouraged to check blood glucose throughout the day with some fasting and some PP readings. They are to bring their glucose meter/cgm in to all appointments. All of the patients questions, treatment options, and current care plan and goals were discussed. A copy of this along with pertinent instructions were given to the patient at the end of the appointment. The patient voices understanding of all of this and is to call in between appointments if they have any problems or questions. Joy Asher control is stable overall. , The patient is wearing their cgm on a daily basis and making decisions in regards to adjusting insulin daily as well for at least the last 60 days , Instructions given today include: Insulin instructions and Dietary education. Will increase insulin at breakfast and dinner. Assessment & Plan (02/15/2025 9:15 PM EDT): During the appointment today all pertinent labs, imaging, health maintenance, and glucose readings were reviewed. Encouraged to check blood glucose throughout the day with some fasting and some PP readings. They are to bring their glucose meter/cgm in to all appointments. All of the patients questions, treatment options, and current care plan and goals were discussed. A copy of this along with pertinent instructions were given to the patient at the end of the appointment. The patient voices understanding of all of this and is to call in between appointments if they have any problems or questions. Joy Asher is struggling to gain control of their diabetes. I am very concerned for diabetes related complications. , The patient is wearing their cgm on a daily basis and making decisions in regards to adjusting insulin daily as well for at least the last 60 days , Instructions given today include: Insulin instructions and Dietary education. Will stop U-500 insulin and change to basal bolus insulin with tresiba and humalog. Assessment & Plan (10/18/2024 8:35 PM EST): During the appointment today all pertinent labs, imaging, health maintenance, and glucose readings were reviewed. Encouraged to check blood glucose throughout the day with some fasting and some PP readings. They are to bring their glucose meter/cgm in to all appointments. All of the patients questions, treatment options, and current care plan and goals were discussed. A copy of this along with pertinent instructions were given to the patient at the end of the appointment. The patient voices understanding of all of this and is to call in between appointments if they have any problems or questions. Joy Asher is doing very well and encouraged on this. , Will stay on current medications. , The patient is wearing their cgm on a daily basis and making decisions in regards to adjusting insulin daily as well for at least the last 60 days , Instructions given today include: Insulin instructions and Dietary education Assessment & Plan (06/23/2024 9:11 PM EDT): During the appointment today all pertinent labs, imaging, health maintenance, and glucose readings were reviewed. Encouraged to check blood glucose throughout the day with some fasting and some PP readings. They are to bring their glucose meter/cgm in to all appointments. All of the patients questions, treatment options, and current care plan and goals were discussed. A copy of this along with pertinent instructions were given to the patient at the end of the appointment. The patient voices understanding of all of this and is to call in between appointments if they have any problems or questions. Joy Asher control is stable overall. , The patient is wearing their cgm on a daily basis and making decisions in regards to adjusting insulin daily as well for at least the last 60 days , Instructions given today include: Insulin instructions and Dietary education. Will stay on current medications. She is continuing to work on improving her diet. Assessment & Plan (10/12/2023 10:54 AM EST): During the appointment today all pertinent labs, imaging, health maintenance, and glucose readings were reviewed. Encouraged to check blood glucose throughout the day with some fasting and some PP readings. They are to bring their glucose meter/cgm in to all appointments. All of the patients questions, treatment options, and current care plan and goals were discussed. A copy of this along with pertinent instructions were given to the patient at the end of the appointment. The patient voices understanding of all of this and is to call in between appointments if they have any problems or questions. Joy Evita Lakeshia control is stable overall. , The patient is wearing their cgm on a daily basis and making decisions in regards to adjusting insulin daily as well for at least the last 60 days , Instructed on the importance of taking insulin before eating. If it has been more than 30-45 min since eating they should not give the meal dose but should just give a correction insulin dose. , Instructions given today include: Hypoglycemia management and Insulin instructions. Decrease both U-500 insulin and Humalog to help prevent low bg which then should help with PP spikes. A1c up some from multiple steroid shots over the last couple of months. 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 ar thropathy 10/12/2023 Assessment & Plan (02/11/2024 9:19 PM EDT): During the appointment today all pertinent labs, imaging, health maintenance, and glucose readings were reviewed. Encouraged to check blood glucose throughout the day with some fasting and some PP readings. They are to bring their glucose meter/cgm in to all appointments. All of the patients questions, treatment options, and current care plan and goals were discussed. A copy of this along with pertinent instructions were given to the patient at the end of the appointment. The patient voices understanding of all of this and is to call in between appointments if they have any problems or questions. Joy J Lakeshia control is stable overall. , Will stay on current medications. , Discussed dietary changes at length. Encouraged to limit simple carbs and focus more on healthy protein/fat with all meals and snacks. They should also avoid any sugary drinks. , Instructions given today include: Insulin instructions and Dietary education Long-term insulin use 10/12/2023 Spondylolisthesis at L3-L4 level 10/12/2023 S/P laparoscopic cholecystectomy 10/12/2023 Other hammer toe(s) (acquired), left foot 2022 Class 2 severe obesity with serious comorbidity and body mass index (BMI) of 35.0 to 35.9 in adult 10/12/2023 Carpal tunnel syndrome of right wrist 01/27/2020 Chronic foot ulcer 04/13/2018 Encounters Date Type Department Care Team Description 07/27/2025 8:15 AM EDT [facility] [address] [place] [phone] Shaina Figueroa, Type 2 diabetes mellitus with peripheral neuropathy [...] (BMI) of 35.0 to 35.9 in adult ([facility]) 07/27/2025 Bamboo flowsheet [facility] [address] [place] [phone] Shaina Figueroa DO 07/27/2025 Travel 07/26/2025 Travel 07/24/2025 [facility] [address] [place] [address] Kimberley Finn LPN Type 2 diabetes mellitus with peripheral neuropathy (HCC) 07/18/2025 Telephone [facility] [address] [place] [address] Nancy Henriquez MA Home Health Care 06/15/2025 [facility] [address] [place] [address] Donna Dela Cruz MA Blood Sugar Problem 05/15/2025 10:45 AM EDT Office Visit [facility] [address] [place] [phone] Shaina Figueroa, DO 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) (Primary Dx); Type 2 diabetes mellitus with peripheral neuropathy (HCC); Type 2 diabetes mellitus with both eyes affected by mild nonproliferative retinopathy without macular edema, with long-term current use of insulin (HCC); Long-term insulin use (HCC); Class 2 severe obesity due to excess calories with serious comorbidity and body mass index (BMI) of 35.0 to 35.9 in adult ([facility]) 05/15/2025 Telephone [facility] [address] [place] [phone] Monica Tee LPN Insulin Lispro covered by plan 05/15/2025 Travel 05/09/2025 Abstract [facility] [address] [place] [phone] Shaina Figueroa, DO 05/04/2025 Telephone [facility] [address] [place] [phone] Shaina Figueroa, DO 05/02/2025 [facility] [address] [place] [address] Kimberley Finn LPN from Last 3 Months Immunizations Immunization Administration Dates Next Due Influenza, High Dose Seasonal, Preservative Free 10/16/2022 Influenza, injectable, quadrivalent, preservativ e free 08/30/2019 Influenza, seasonal, injectable 08/30/2019,08/30 Influenza, seasonal, injectable, preservative fr ee 08/30/2018,12/02/2016 Influenza, seasonal, intradermal, preservative f ree 08/30/2021 Moderna SARS-CoV-2 Booster Vaccination Moderna SARS-CoV-2 Vaccination 09/26/2021 Pneumococcal Conjugate PCV 13 12/02/2016 Pneumococcal Polysaccharide PPSV23 11/30/2016, Zoster, Recombinant 01/27/2023,10/28/2022 Family History Medical History Relation Name Comments Diabetes Brother No Known Problems Daughter Atrial fibrillation Father Coronary artery disease Father Dementia Father Heart disease Father Hypertension Father Parkinsonism Father Sleep apnea Father Asthma Mother Hypertension Mother Sleep apnea Mother Diabetes Paternal Grandfather Diabetes Paternal Grandmother Diabetes Sibling Hypertension Son Relation Name Status Comments Brother Alive 2 Child Alive 2 sons 1 daught er Daughter Alive Father Mother Alive Paternal Grandfather Paternal Grandmother Sibling Alive 2 brothers Son Alive 2 Social History Tobacco Use Types Packs/Day Years [...] week 07/26/2025 How often do you attend [facility] or yarsani services? More than 4 times per year 07/26/2025 Do you belong to any clubs o r organizations such as muslim groups, unions, fraternal or athletic groups, or [...] Recorded Patient Health Questionnaire-2 Score 0 05/15/2025 [employer] [facility] - Occupational Stress Questionnaire Answer Date Recorded [...] place to sleep or slept in a retirement (including now)? No 02/08/2024 Housing Stability Vital Sign Answer Luis e Recorded In the last 12 months, was t here a time when you were not able to pay the mortgage or rent on time? No 07/26/2025 In the past 12 months, how m any times have you moved where you were living? 0 07/26/2025 At any time in the past 12 m [facility], were you homeless or living in a retirement (including now)? No 07/26/2025 Comments Unknown Sex and Gender Information Value Date Recorded Sex Assigned at Female 05/20/2023 8:32 AM EDT Legal Sex Female 7:19 PM EDT Gender Identity Female 05/20/2023 8:32 AM EDT Sexual Orientation Not on file Last Filed Vital Signs Vital Sign Reading Time Taken Comments Blood Pressure 122/62 07/27/2025 8:13 AM EDT Pulse 65 07/27/2025 8:13 AM EDT Temperature 36.4 C (97.5 F) 07/27/2025 8:13 AM EDT Respiratory Rate - - Oxygen Saturation 98% 07/27/2025 8:13 AM EDT Inhaled Oxygen Concentration - - Weight 101 kg (222 lb 3.2 oz) 05/15/2025 10:29 A M EDT Height 167.6 cm (5' 6 ) 07/27/2025 8:13 AM EDT Body Mass Index 35.86 05/15/2025 10:29 AM EDT Plan of Treatment Upcoming Encounters Date Type Department Care Team (Late st Contact Info) Description 08/15/2025 9:45 AM EDT Office Visit [facility] [address] [place] [phone] Shaina Figueroa, DO [address] [place] [address] 10/24/2025 10:30 AM EST Office Visit [facility] [place] [facility] [address] [place] [phone] Shaina Figueroa, [address] [place] [address] Health Maintenance Due Date Last Done Comments CT Colonography 1960 Colonoscopy 1960 Colorectal Cancer Screening 1960 FIT-DNA 1960 FIT 1960 FOBT 1960 Sigmoidoscopy 1960 Pap Smear 1981 Cervical Cancer Screening 1990 HPV/Cotest 1990 Mammogram 2000 Influenza Vaccine (#1) 2025 2, 08/30/2021, 08/30/2019, Additional history exists Procedures Procedure Name Priority Date/Time Associated Diagnosis Comments POCT GLYCOSYLATED HEMOGLOBIN (HGB A1C) Routine 05/15/2025 10:45 AM EDT Type 2 diabetes mellitus with peripheral neuropathy (HCC) from Last 3 Months Results * (ABNORMAL) POCT glycosylated hemoglobin (Hb A1C) docked device (05/15/2025 10:45 AM EDT) Hemoglobin A1C 8.1 Blood Venous blood specimen / Unknown 05/15/2025 10:45 AM EDT Shaina Figueroa DO POINT OF CARE TEST ENTER/E DIT ORDERABLES Final Result from Last 3 Months Insurance [employer] MEDIC[employer] Care Teams Retail Service Representative Relationship Specialty Start Date End Date Charan Delgadillo DO [address] [place] [phone] PCP - General 05/20/23
--- OUTSIDE RECORDS SUMMARY | 2025-08-02 08:58 | XMS_ITS | Encounter Summary ---
Author Organization [facility] Address [address] [place] [address] Care Team Providers Care Practical Ministries Professor Name Role Phone Brysonmarybeth Charan Dani BASSETT Primary Care Provider [phone] Reason for Visit * Reason Onset Date Comments Med Refill 07/24/2025 Encounter Details Date Type Department Care Team (Late st Contact Info) Description 07/24/2025 Refill [facility] [facility] [address] [facility] [address] [place] [address] Kimberley Finn LPN Type 2 diabetes mellitus with peripheral neuropathy (HCC) Social History Tobacco Use Types Packs/Day Years Used Date Smoking Tobacco: Never Smokeless Tobacco: Never Alcohol Use Standard Drinks/Week Comments Never 0 (1 standard drink = 0.6 oz pure alcohol) caffeine: 1-2 cups per day coffee Social Connection and Isolat ion Panel [NHANES] Answer Date Recorded In a typical week, how many times do you talk on the phone with family, friends, or neighbors? More than three times a week 02/08/2024 How often do you get togethe r with friends or relatives? More than three times a week 02/08/2024 How often do you attend chur ch or caodaism services? More than 4 times per year 02/08/2024 Do you belong to any clubs o r organizations such as samaritan groups, unions, fraternal or athletic groups, or school groups? Yes 02/08/2024 How often do you attend meet ings of the clubs or organizations you belong to? More than 4 times per year 02/08/2024 Are you , , di vorced, , never , or living with a partner? 02/08/2024 AUDIT-C Answer Date Recorded Q1: How often do you have a drink containing alcohol? Never 02/08/2024 Q2: How many drinks containi ng alcohol do you have on a typical day when you are drinking? Patient does not drink Q3: How often do you have si x or more drinks on one occasion? Never 02/08/2024 Overall Financial Resource Strain (CARDIA) Answe r Date Recorded How hard is it for you to pa y for the very basics like food, housing, medical care, and heating? Not hard at all 02/08/2024 PHQ-2 Answer Date Recorded Patient Health Questionnaire-2 Score 0 05/15/2025 [facility]at ional [facility] - Occupational Stress Questionnaire Answer Date [...] 02/08/2024 Hunger Vital Sign Answer Date Recorded Worried About Running Out of Food in the Last Ye ar Not on file 02/08/2024 Within the past 12 months, t he food you bought just didn't last and you didn't have money to get more. Never true 02/08/2024 PRAPARE - Transportation Answer Date Re corded In the past 12 months, has l ack of transportation kept you from medical appointments or from getting medications? No 01/28 In the past 12 months, has l ack of transportation kept you from meetings, work, or from getting things needed for daily living? No 02/08/2024 Housing Stability Vital Sign Answer [...] place to sleep or slept in a long-term (including now)? No 02/08/2024 Comments Unknown Sex and Gender Information Value Date Recorded Sex Assigned at Female 05/20/2023 8:32 AM EDT Legal Sex Female 7:19 PM EDT Gender Identity Female 05/20/2023 8:32 AM EDT Sexual Orientation Not on file documented as of this encounter Miscellaneous Notes * Telephone Encounter - Kimberley Finn LPN - 07/24/2025 3:54 PM EDT Last ov 05/15/2025 RX sent in per Dr Merritt documented in this encounter Plan of Treatment Upcoming Encounters Date Type Department Care Team (Late st Contact Info) Description 08/15/2025 9:45 AM EDT [facility] [address] [place] [address] Shaina Figueroa, DO [address] [place], [place] [id number] 10/24/2025 10:30 AM EST Office Visit [place] [facility] [address] [place] [address] Shaina Figueroa, DO [address] [place] [address] documented as of this encounter Visit Diagnoses Diagnosis Type 2 diabetes mellitus with peripheral neuropathy (HCC) documented in this encounter Care Teams Practical Ministries Professor Relationship Specialty Start Date End Date Charan Delgadillo, [facility] [phone] PCP - General 05/20/23 documented as of this encounter
--- OUTSIDE RECORDS SUMMARY | 2025-08-02 08:58 | XMS_ITS | Encounter Summary ---
Author Organization [facility] Address [address] [place] [facility] [place] [address] Care Team Providers Care Image Processing Engineer Name Role Phone Leona Charan Louise DO Primary Care Provider [phone] Encounter Details Date Type Department Care Team (Latest Contact Info) Description 07/27/2025 Travel Social History Tobacco Use Types Packs/Day Years [...] 07/26/2025 How often do you attend chur ch or mosque services? More than 4 times per year [...] Recorded Patient Health Questionnaire-2 Score 0 05/15/2025 [facility] - Occupational Stress [...] place to sleep or slept in a skilled nursing (including now)? No 02/08/2024 Housing Stability Vital Sign Answer Luis e Recorded In the last 12 months, was t here a time when you were not able to pay the mortgage or rent on time? No 07/26/2025 In the past 12 months, how m any times have you moved where you were living? 0 07/26/2025 At any time in the past 12 m [facility], were you homeless or living in a skilled nursing (including now)? No 07/26/2025 Comments Unknown Sex [...] Description 08/15/2025 9:45 AM EDT [facility] [address] [place] [phone] Shaina Figueroa, DO [address] [place] [address] 10/24/2025 10:30 AM EST [facility] [address] [place] [phone] Shaina Figueroa, DO [address] [place] [address] documented as of this encounter Visit Diagnoses Not on filedocumented in this encounter Care Teams Image Processing Engineer Relationship Specialty Start Date End Date Charan Delgadillo DO [facility] [place] [address] PCP - General 05/20/23 documented as of this encounter
--- OUTSIDE RECORDS SUMMARY | 2025-08-02 08:58 | XMS_ITS | Encounter Summary ---
Author Organization [facility] Address [address] [place] [address] Phone Care Team Providers Care Side Show Entertainer Name Role Phone Charan Delgadillo DO Primary Care Provider [phone] Charan Delgadillo DO Primary Care Provider [phone] Rosalinda Cordova MD Unavailable [phone] Encounter Details Date Type Department Care Team (Late st Contact Info) Description 12/30/[address] [facility] [address] [place] [address] Scanning, Generic Provider Social History Tobacco Use [...] Office Visit [facility] 703 [facility] [address] [place] [address] Rosalinda Cordova MD 703 [facility] 2, [address] [place] [address] documented as of this encounter [...] filedocumented in this encounter Care Teams Side Show Entertainer Relationship Specialty Start Date End Date Charan Delgadillo DO PCP - General 07/09/20 02/21/24 Charan Delgadillo DO PCP - General Family Medicine 02/22/24 Rosalinda Cordova MD 703 [facility] 2, [address] [address] Consulting Physician Cardiology 02/22/24 documented as of this encounter
--- OUTSIDE RECORDS SUMMARY | 2025-08-02 08:58 | XMS_ITS | Encounter Summary ---
Author Organization [facility] Address [address] [facility] [place] [address] Care Team Providers Care Hand Decorator Name Role Phone Leona Charan Louise DO Primary Care Provider [phone] Reason for Visit * Reason Onset Date Comments Home Health Care 07/18/2025 Encounter Details Date Type Department Care Team (Late st Contact Info) Description 07/18/2025 Telephone [facility] [address] [place] [address] Nancy Henriquez MA Home Health Care Social History Tobacco Use Types Packs/Day Years [...] How often do you attend chur or religion services? More than 4 times per year 07/26/2025 Do you belong to any clubs o r organizations such as yazdanism groups, unions, fraternal or athletic groups, or [...] Recorded Patient Health Questionnaire-2 Score 0 05/15/2025 [facility]at ionnc Health - Occupational Stress Questionnaire Answer Date [...] place to sleep or slept in a correction (including now)? No 02/08/2024 Housing Stability Vital Sign Answer Luis e Recorded In the last 12 months, was t here a time when you were not able to pay the mortgage or rent on time? No 07/26/2025 In the past 12 months, how m any times have you moved where you were living? 0 07/26/2025 At any time in the past 12 m [facility], were you homeless or living in a correction (including now)? No 07/26/2025 Comments Unknown Sex and Gender Information Value Date Recorded Sex Assigned at Female 05/20/2023 8:32 AM EDT Legal Sex Female 7:19 PM EDT Gender Identity Female 05/20/2023 8:32 AM EDT Sexual Orientation Not on file documented as of this encounter Miscellaneous Notes * Addendum Note - Monica Plummer LPN - 07/26/2025 9:40 AM EDTAddended by: MONICA PLUMMER on: 07/26/2025 09:40 AM Modules accepted: Orders * Telephone Encounter - Monica Plummer LPN - 07/26/2025 9:39 AM EDT New RX for 31G x 8mm sent to [facility] * Telephone Encounter - Urmila Fernandez - 07/26/2025 9:31 AM EDT Patient had returned call to schedule the appointment to get the sooner check up. Scheduled for 07/27/2025 @ 8:15. She also is wanting to let us know that she believes the wrong needles were ordered wrong. She says she typically gets the ultrafine 8mm 31 gauge and she received 4mm 32 gauge. Can youplease look into this and call her back if there are any questions? [phone] is her c/b #. * Telephone Encounter - Monica Plummer LPN - 07/18/2025 12:10 PM EDT LM with Jessy () informing her of Dr. Merritt's response. Jessy to return call with any questions or to schedule appt for pt. * Telephone Encounter - Monica Plummer LPN - 07/18/2025 11:25 AM EDT Per note Tresiba was 60 units daily. Humalog was increased to 15 units breakfast and 20 units dinner (after steroid injection). Pt was to continue this until readings started to come down. Prior to Humalog increase dose was 10 units am, 14 units pm. Dosing pt has does not match notes. * Telephone Encounter - Nancy Henriquez MA - 07/18/2025 10:41 AM EDT Jessy called from , Pt is currently has HH for a wound vac on her left foot. they would like to know how often do you want her BS checked and what should her numbers be running? Is it ok to call if it is over 400 and under [address] [facility] standers. She would also like to the correct dose of her Tresiba and Humalog. She states the Pt said she takes 30 units in the AM and 14 units in the PM of Tresiba and she takes 10 units in the am and not sure of the dose she takes in the PM nor the coverage, she states she does give her self coverage at dinner. She states the Pt told her her scale is around the house somewhere. She states she will be with Pt's the rest of the day and it willbe ok to LVM on her work phone. [phone] documented in this encounter Plan of Treatment Upcoming Encounters Date Type Department Care Team (Late st Contact Info) Description 08/15/2025 9:45 AM EDT Office Visit [facility] [place] [facility] [address] [place] [address] Shaina Figueroa, DO [address] [place] [address] 10/24/2025 10:30 AM EST Office Visit [facility] [place] [facility] [address] [place] [address] Shaina Figueroa, [address] [place] [address] documented as of this encounter Visit Diagnoses Diagnosis Type 2 diabetes mellitus with peripheral neuropathy (HCC) documented in this encounter Care Teams Hand Decorator Relationship Specialty Start Date End Date Charan Delgadillo DO [address] [place] [address] PCP - General 05/20/23 documented as of this encounter
--- OUTSIDE RECORDS SUMMARY | 2025-08-02 08:58 | XMS_ITS | Clinical Summary ---
Author Organization [facility] Address [address] [place], [place] [id number] Care Team Providers Care Boarding Room Fixer Name Role Phone Charan Delgadillo DO Primary Care Provider [phone] Allergies Active Allergy Reactions Criticality Noted Date [...] EST) Glucose 316(H) 65 - 100 mg/dL [facility] BUN 15 8 - 25 mg/dL [facility] Creatinine 0.78 0.70 - 1.40 mg/dL [facility] Sodium 135 132 - 148 mmol/L [facility] Potassium 4.4 3.5 - 5.0 mmol/L [facility] Chloride 96(L) 98 - 110 mmol/L [facility] CO2 23 23 - 32 mmol/L [facility] Anion Gap 16(H) 0 - 15 mmol/L [facility] Calcium 11.4(H) 8.5 - 10.5 mg/dL [facility] eGFR- >60 [facility] eGFR-All Other Races >60 . [facility] Comment: eGFR (Estimated GFR) [...] EST Dorothy Renteria MD LABORATORY Final Result [facility] [address] [place] [address] from Last 3 Months or Most Recently Relevant to Health Maintenance Insurance [employer] P[employer] Care Teams Boarding Room Fixer Relationship Specialty Start Date End Date Charan Delgadillo DO [address] [place] [address] PCP - General Family Medicine 11/08/12
--- OUTSIDE RECORDS SUMMARY | 2025-08-02 08:58 | XMS_ITS | Encounter Summary ---
Author Organization [facility] Address [address] [place] [address] Care Team Providers Care Type Casting Machine Operator Name Role Phone Leona Charan Louise DO Primary Care Provider [phone] Encounter Details Date Type Department Care Team (Latest Contact Info) Description 07/26/2025 Travel Social History Tobacco Use Types Packs/Day [...] often do you attend chur ch or presybeterian services? More than 4 times per year 07/26/2025 Do you belong to any clubs o r organizations such as taoist groups, unions, fraternal or athletic groups, or [...] Recorded Patient Health Questionnaire-2 Score 0 05/15/2025 [facility] of Occupat ional Health - [...] any time in the past 12 m [facility], were you homeless or living in a penitentiary (including now)? No 07/26/2025 Comments Unknown Sex and Gender Information Value Date Recorded Sex Assigned at Female 05/20/2023 8:32 AM EDT Legal Sex Female 7:19 PM EDT Gender Identity Female 05/20/2023 8:32 AM EDT Sexual Orientation Not on file documented as of this encounter Functional Status * Audit-C Score Answer Date of Assessment Author 0 07/26/2025 2:42 PM EDT Abdoulaye, Generic * Q1: How often do you have a drink containing alcohol? Answer Date of Assessment Author Never 07/26/2025 2:42 PM EDT Abdoulaye, Generic * Q2: How many drinks containing alcohol do you have on a typical day when you are drinking? Answer Date of Assessment Author Patient does not drink 07/26/2025 2:42 PM EDT My chart, Generic * Q3: How often do you have six or more drinks on one occasion? Answer Date of Assessment Author Never 07/26/2025 2:42 PM EDT Abdoulaye, Generic documented as of this encounter Plan of Treatment Upcoming Encounters Date Type Department Care Team (Late st Contact Info) Description 08/15/2025 9:45 AM EDT Office Visit [facility] [address] [place] [address] Shaina Figueroa, DO [address] [place] [address] 10/24/2025 10:30 AM EST Office Visit [facility] [address] [place] [address] Shaina Figueroa, DO [address] [place] [address] documented as of this encounter Visit Diagnoses Not on filedocumented in this encounter Care Teams Type Casting Machine Operator Relationship Specialty Start Date End Date Charan Delgadillo DO [facility] [place] [address] PCP - General 05/20/23 documented as of this encounter
--- OUTSIDE RECORDS SUMMARY | 2025-08-02 09:00 | XMS_ITS | Encounter Summary ---
Author Organization [facility] Address [address] [place] [phone] Phone Care Team Providers Care Pnp Name Role Phone Charan Delgadillo DO Primary Care Provider [phone] Charan Delgadillo DO Primary Care Provider [phone] Rosalinda Cordova MD Unavailable [phone] Encounter Details Date Type Department Care Team (Late st Contact Info) Description 06/19/2020 Orders Only [facility] [address] [place] [address] Conversion, Onbase Social History Tobacco Use Types [...] EST Office Visit [facility] [address] [address] Rosalinda Cordova MD [address]03 [facility] [address], [address] [place] [address] Scheduled Orders Name Type Priority Associated Diagnoses Orde r Schedule OUTSIDE LAB SCAN Lab Ordered: 06/19/2020 documented as of this encounter Visit Diagnoses Not on filedocumented in this encounter Care Teams Pnp Relationship Specialty Start Date End Date Charan Delgadillo DO PCP - General 07/09/20 02/21/24 Charan Delgadillo DO PCP - General Family Medicine 02/22/24 Rosalinda Cordova MD 703 [facility] 2, [place] [address] Consulting Physician Cardiology 02/22/24 documented as of this encounter
--- OUTSIDE RECORDS SUMMARY | 2025-08-02 09:00 | XMS_ITS | Encounter Summary ---
Author Organization [facility] Address [address] [place] [id number] Phone Care Team Providers Care Wire Weaver Cloth Name Role Phone Charan Delgadillo DO Primary Care Provider [phone] Charan Delgadillo DO Primary Care Provider [phone] Rosalinda Cordova MD Unavailable [phone] Encounter Details Date Type Department Care Team (Late st Contact Info) Description 04/17/2020 Orders Only [facility] [address] [place] [address] Conversion, Onbase Social History Tobacco Use Types [...] Description 11/03/2025 2:30 PM EST Office Visit [facility] [address] [address] Rosalinda Cordova MD 703 [facility] [address], [address] [place] [address] Scheduled Orders Name Type Priority Associated Diagnoses Orde r Schedule OUTSIDE LAB SCAN Lab Ordered: 04/17/2020 documented as of this encounter Visit Diagnoses Not on filedocumented in this encounter Care Teams Wire Weaver Cloth Relationship Specialty Start Date End Date Charan Delgadillo DO PCP - General 07/09/20 02/21/24 Charan Delgadillo DO PCP - General Family Medicine 02/22/24 Rosalinda Cordova MD 703 [facility] 2, [place] [address] Consulting Physician Cardiology 02/22/24 documented as of this encounter
--- OUTSIDE RECORDS SUMMARY | 2025-08-02 09:01 | XMS_ITS | Encounter Summary ---
Author Organization [facility] Address [address] [facility] [place] [address] Care Team Providers Care Shoe Stock Associate Name Role Phone BrysonCharan clemente Dani BASSETT Primary Care Provider [phone] Shaina Figueroa DO Unavailable [phone] Moni Becker MD Unavailable [phone] Encounter Details Date Type Department Care Team (Late st Contact Info) Description 05/20/2023 Abstract [facility] [place] [facility] [address] [place] [address] Luisito Seymour DPM [address] [facility] [address] [place] [address] Social History Tobacco Use Types Packs/Day Years Used Date Smoking Tobacco: Never Smokeless Tobacco: Never Alcohol Use Standard Drinks/Week Comments Not Currently 0 (1 standard drink = 0.6 oz [...] Description 08/15/2025 9:45 AM EDT Office Visit [facility] [address] [place] [address] Petznick, Shaina M, DO [address] [place] [address] 10/24/2025 10:30 AM EST Office Visit [facility] [address] [place] [address] Shaina Figueroa, DO [address] [place] [address] documented as of this encounter Visit Diagnoses Not on filedocumented in this encounter Care Teams Shoe Stock Associate Relationship Specialty Start Date End Date Charan Delgadillo DO [facility] [place] [address] PCP - General 05/20/23 Shaina Figueroa DO [address] [place] [address] PCP - Medical [employer] 04/30/23 02/06/24 Moni Becker MD [address] [place] [address] PCP - [facility] 07/31/24 11/29/24 documented as of this encounter
--- OUTSIDE RECORDS SUMMARY | 2025-08-02 09:01 | XMS_ITS | Encounter Summary ---
Author Organization [facility] Address [address] [facility] [place] [address] Care Team Providers Care Senior Health Physics Technician Name Role Phone BrysonCharan clemente Dani BASSETT Primary Care Provider [phone] Shaina Figueroa DO Unavailable [phone] Moni Becker MD Unavailable [phone] Encounter Details Date Type Department Care Team (Late st Contact Info) Description 05/19/2023 Abstract [facility] [address] [facility] [address] [place] [address] Jo Pringle LPN [address] [facility] [place] [address] [place] [address] Social History Tobacco Use Types Packs/Day Years Used Date Smoking Tobacco: Never Smokeless Tobacco: Never Tobacco Cessation:Counseling Given: Not Answered Alcohol Use Standard Drinks/Week Comments Not Currently [...] [facility] [address] [facility] [address] [place] [address] Shaina Figueroa, DO [address] [place] [address] 10/24/2025 10:30 AM EST Office Visit [facility] [address] [place] [address] Shaina Figueroa, DO [address] [place] [address] documented as of this encounter Visit Diagnoses Not on filedocumented in this encounter Care Teams Senior Health Physics Technician Relationship Specialty Start Date End Date Charan Delgadillo DO [address] [place] [address] PCP - General 05/20/23 Shaina Figueroa DO [address] [place] [address] PCP - Medical [employer] 04/30/23 02/06/24 Moni Becker MD [address] [place] [address] PCP - [facility] 07/31/24 11/29/24 documented as of this encounter
--- OUTSIDE RECORDS SUMMARY | 2025-08-02 09:03 | XMS_ITS | Encounter Summary ---
Author Organization [facility] Address [address] [place] [address] Care Team Providers Care Cell Biologist Name Role Phone Brysonmarybeth Charan Louise DO Primary Care Provider Encounter Details Date Type Department Care Team (Late st Contact Info) Description 05/09/2025 Abstract [facility] [place] [facility] [address] [facility] [address] [place] [address] Shaina Figueroa DO [address] [facility] [address] [place] [address] Social History Tobacco Use Types Packs/Day Years [...] often do you attend chur ch or confucianism services? More than 4 times per year 02/08/2024 Do you belong to any clubs o r organizations such as scientologist groups, unions, fraternal or athletic groups, or [...] Date Recorded Patient Health Questionnaire-2 Score 0 02/14/2025 [facility] of Occupat ional Health - Occupational Stress [...] place to sleep or slept in a assisted (including now)? No 02/08/2024 Comments Unknown Sex and Gender Information Value Date Recorded Sex Assigned at Female 05/20/2023 8:32 AM EDT Legal Sex Female 7:19 PM EDT Gender Identity Female 05/20/2023 8:32 AM EDT Sexual Orientation Not on file documented as of this encounter Plan of Treatment Upcoming Encounters Date Type Department Care Team ([facility] st Contact Info) Description 08/15/2025 9:45 AM EDT [facility] [address] [place] [address] Shaina Figueroa, DO [address] [place] [address] 10/24/2025 10:30 AM EST Office Visit [facility] [address] [place] [address] Shaina Figueroa, DO [address] [place] [address] documented as of this encounter Visit Diagnoses Not on filedocumented in this encounter Care Teams Cell Biologist Relationship Specialty Start Date End Date Charan Delgadillo DO [address] [place] [address] PCP - General 05/20/23 documented as of this encounter
--- OUTSIDE RECORDS SUMMARY | 2025-08-02 09:03 | XMS_ITS | Encounter Summary ---
Author Organization [facility] Address [address] [place] [address] Care Team Providers Care Picked Edge Sewing Machine Operator Name Role Phone Brysonmarybeth Charan Louise DO Primary Care Provider [phone] Encounter Details Date Type Department Care Team (Late st Contact Info) Description 02/24/2025 Abstract [facility] [place] [facility] [address] [facility] [address] [place] [address] Shaina Figueroa DO [address] [facility] [address] [place] [address] Social History Tobacco Use Types Packs/Day Years [...] often do you attend chur ch or yazidi services? More than 4 times per year 02/08/2024 Do you belong to any clubs o r organizations such as catholic groups, unions, fraternal or athletic groups, or [...] Recorded Patient Health Questionnaire-2 Score 0 02/14/2025 [facility] of Occupat ional Health - [...] place to sleep or slept in a long term (including now)? No 02/08/2024 Comments Unknown Sex and Gender Information Value Date Recorded Sex Assigned at Female 05/20/2023 8:32 AM EDT Legal Sex Female 7:19 PM EDT Gender Identity Female 05/20/2023 8:32 AM EDT Sexual Orientation Not on file documented as of this encounter Plan of Treatment Upcoming Encounters Date Type Department Care Team ([facility] st Contact Info) Description 08/15/2025 9:45 AM EDT [facility] [address] [place] [address] Shaina Figueroa, DO [address] [place] [address] 10/24/2025 10:30 AM EST Office Visit [facility] [address] [place] [address] Shaina Figueroa, DO [address] [place] [address] documented as of this encounter Visit Diagnoses Not on filedocumented in this encounter Care Teams Picked Edge Sewing Machine Operator Relationship Specialty Start Date End Date Charan Delgadillo DO [address] [place] [address] PCP - General 05/20/23 documented as of this encounter
--- OUTSIDE RECORDS SUMMARY | 2025-08-02 09:03 | XMS_ITS | Encounter Summary ---
Author Organization [facility] Address [address] [place] [phone] Phone Care Team Providers Care Marine Reporter Name Role Phone Charan Delgadillo DO Primary Care Provider [phone] Charan Delgadillo DO Primary Care Provider [phone] Rosalinda Cordova MD Unavailable [phone] Encounter Details Date Type Department Care Team (Late st Contact Info) Description 03/25/2022 Orders Only [facility] [address] [place] [address] Conversion, Onbase Social History Tobacco Use Types [...] Description 11/03/2025 2:30 PM EST Office Visit [facility] [address] [address] Rosalinda Cordova MD 703 [facility] 2, [address] [place] [address] Scheduled Orders Name Type Priority Associated Diagnoses Orde r Schedule OUTSIDE LAB SCAN Lab Ordered: 03/25/2022 OUTSIDE LAB SCAN Lab Ordered: 03/25/2022 OUTSIDE LAB SCAN Lab Ordered: 03/25/2022 documented as of this encounter Visit Diagnoses Not on filedocumented in this encounter Care Teams Marine Reporter Relationship Specialty Start Date End Date Charan Delgadillo DO PCP - General 07/09/20 02/21/24 Charan Delgadillo DO PCP - General Family Medicine 02/22/24 Rosalinda Cordova MD 3 [facility] 2, [address] [address] Consulting Physician Cardiology 02/22/24 documented as of this encounter
--- OUTSIDE RECORDS SUMMARY | 2025-08-02 09:03 | XMS_ITS | Encounter Summary ---
Author Organization [facility] Address [address] [place] [address] Care Team Providers Care Tube Sorter Name Role Phone Brysonmarybeth Charan Dani BASSETT Primary Care Provider [phone] Encounter Details Date Type Department Care Team (Late st Contact Info) Description 04/28/2025 Abstract [facility] [place] [facility] [address] [facility] [address] [place] [address] Shaian Figueroa DO [address] [facility] [address] [place] [address] Social History Tobacco Use Types Packs/Day Years [...] often do you attend chur ch or synagogue services? More than 4 times per year 02/08/2024 Do you belong to any clubs o r organizations such as faith groups, unions, fraternal or athletic groups, or [...] Recorded Patient Health Questionnaire-2 Score 0 02/14/2025 [facility] of Occupat ional Health - Occupational [...] place to sleep or slept in a fpc (including now)? No 02/08/2024 Comments Unknown Sex and Gender Information Value Date Recorded Sex Assigned at Female 05/20/2023 8:32 AM EDT Legal Sex Female 7:19 PM EDT Gender Identity Female 05/20/2023 8:32 AM EDT Sexual Orientation Not on file documented as of this encounter Plan of Treatment Upcoming Encounters Date Type Department Care Team ([facility] st Contact Info) Description 08/15/2025 9:45 AM EDT [facility] [address] [place] [address] Shaina Figueroa, DO [address] [place] [address] 10/24/2025 10:30 AM EST Office Visit [facility] [address] [place] [address] Shaina Figueroa, DO [address] [place] [address] documented as of this encounter Visit Diagnoses Not on filedocumented in this encounter Care Teams Tube Sorter Relationship Specialty Start Date End Date Charan Delgadillo DO [address] [place] [address] PCP - General 05/20/23 documented as of this encounter
--- OUTSIDE RECORDS SUMMARY | 2025-08-02 09:03 | XMS_ITS | Encounter Summary ---
Author Organization [facility] Address [address] [place] [address] Care Team Providers Care Director Of Capital Giving Name Role Phone Brysonmarybeth Charan Louise DO Primary Care Provider [phone] Encounter Details Date Type Department Care Team (Late st Contact Info) Description 04/03/2025 Abstract [facility] [place] [facility] [address] [facility] [address] [place] [address] Shaina Figueroa DO [address] [facility] [address] [place] [address] Social History Tobacco Use Types Packs/Day Years [...] often do you attend chur ch or baptist services? More than 4 times per year 02/08/2024 Do you belong to any clubs o r organizations such as islam groups, unions, fraternal or athletic groups, or [...] Recorded Patient Health Questionnaire-2 Score 0 02/14/2025 [facility] of Occupat ional [...] place to sleep or slept in a usp (including now)? No 02/08/2024 Comments Unknown Sex and Gender Information Value Date Recorded Sex Assigned at Female 05/20/2023 8:32 AM EDT Legal Sex Female 7:19 PM EDT Gender Identity Female 05/20/2023 8:32 AM EDT Sexual Orientation Not on file documented as of this encounter Plan of Treatment Upcoming Encounters Date Type Department Care Team ([facility] st Contact Info) Description 08/15/2025 9:45 AM EDT [facility] [address] [place] [address] Shaina Figueroa, DO [address] [place] [address] 10/24/2025 10:30 AM EST Office Visit [facility] Rodriguez [facility] [address] [place] [address] Shaina Figueroa, DO [address] [place] [address] documented as of this encounter Visit Diagnoses Not on filedocumented in this encounter Care Teams Director Of Capital Giving Relationship Specialty Start Date End Date Charan Delgadillo DO [address] [place] [address] PCP - General 05/20/23 documented as of this encounter
--- OUTSIDE RECORDS SUMMARY | 2025-08-02 09:03 | XMS_ITS | Encounter Summary ---
Author Organization [facility] Address [address] [place] [address] Care Team Providers Care Press Operator Helper Name Role Phone Leona Charan Louise DO Primary Care Provider [phone] Moni Becker MD Unavailable [phone] Encounter Details Date Type Department Care Team (Late st Contact Info) Description 04/21/2024 Orders Only [facility] [place] [facility] [address] [facility] [address] [place] [address] Shaina Figueroa, [address] [place] [address] Social History Tobacco Use Types Packs/Day Years [...] often do you attend chur ch or anabaptist services? More than 4 times per year [...] Date Recorded Patient Health Questionnaire-2 Score 0 10/12/2023 [facility] of Occupat ional Health - Occupational [...] place to sleep or slept in a [place] facility (including now)? No 02/08/2024 Comments Unknown Sex and Gender Information Value Date Recorded Sex Assigned at Female 05/20/2023 8:32 AM EDT Legal Sex Female 7:19 PM EDT Gender Identity Female 05/20/2023 8:32 AM EDT Sexual Orientation Not on file documented as of this encounter Plan of Treatment Upcoming Encounters Date Type Department Care Team ([facility] st Contact Info) Description 08/15/2025 9:45 AM EDT Office Visit [place] [facility] [address] [place] [address] Shaina Figueroa, [address] [place] [address] 10/24/2025 10:30 AM EST Office Visit [place] [facility] [address] [place] [address] Shaina Figueroa, [address] [place] [address] documented as of this encounter Procedures Procedure Name Priority Date/Time Associated Diagnosis Comments DIABETIC RETINOPATHY SCREENING - OU - BOTH EYES Routine 04/20/2024 8:37 AM EDT documented in this encounter Results * (ABNORMAL) Diabetic Retinopathy Screening - OU - Both Eyes (04/20/2024 8:37 AM EDT) Anatomical Region Laterality Modality Head Other us Shaina Figueroa DO OPHTH PHOTOGRAPHY Final Re sult documented in this encounter Visit Diagnoses Not on filedocumented in this encounter Care Teams Press Operator Helper Relationship Specialty Start Date End Date Charan Delgadillo DO [address] [place] [address] PCP - General 05/20/23 Moni Becker MD [address] [place] [id number] [facility] 07/31/24 11/29/24 documented as of this encounter
--- OUTSIDE RECORDS SUMMARY | 2025-08-02 09:03 | XMS_ITS | Encounter Summary ---
Author Organization [facility] Address [address] [facility] [place] [address] Care Team Providers Care Lithopone Charger Name Role Phone Leona Charan Louise DO Primary Care Provider [phone] Moni Becker MD Unavailable [phone] Encounter Details Date Type Department Care Team (Late st Contact Info) Description 02/15/2024 Abstract [facility] [place] [facility] [address] [facility] [address] [place] [address] Shaina Figueroa, [address] [facility] 230 [place] [address] Social History Tobacco Use Types Packs/Day Years [...] often do you attend chur ch or orthodox services? More than 4 times per year 02/08/2024 Do you belong to any clubs o r organizations such as mormon groups, unions, fraternal or athletic groups, or [...] Recorded Patient Health Questionnaire-2 Score 0 10/12/2023 [facility] of Occupat ional Health - Occupational [...] place to sleep or slept in a jail (including now)? No 02/08/2024 Comments Unknown Sex [...] 08/15/2025 9:45 AM EDT Office Visit [facility] [address] [place] [address] Shaina Figueroa, [address] [place] [address] 10/24/2025 10:30 AM EST Office Visit [facility] [address] [place] [address] Shaina Figueroa, DO [address] [place] [address] documented as of this encounter Visit Diagnoses Not on filedocumented in this encounter Care Teams Lithopone Charger Relationship Specialty Start Date End Date Charan Delgadillo DO [facility] [place] [address] PCP - General 05/20/23 Moni Becker MD [address] [place] [address] PCP - [facility] 07/31/24 11/29/24 documented as of this encounter
--- OUTSIDE RECORDS SUMMARY | 2025-08-02 09:03 | XMS_ITS | Encounter Summary ---
Author Organization [facility] Address [address] [place] [address] Care Team Providers Care Game Programmer Name Role Phone Brysonmarybeth Charan Louise DO Primary Care Provider [phone] Encounter Details Date Type Department Care Team (Late st Contact Info) Description 01/05/2025 Abstract [facility] [place] [facility] [address] [facility] [address] [place] [address] Shaina Figueroa DO [address] [facility] [address] [place] [address] Social History Tobacco Use Types Packs/Day Years [...] often do you attend chur ch or gnosticism services? More than 4 times per year 02/08/2024 Do you belong to any clubs o r organizations such as orthodoxy groups, unions, fraternal or athletic groups, or [...] Date Recorded Patient Health Questionnaire-2 Score 0 10/17/2024 [facility] of Occupat ional Health - Occupational Stress [...] a skilled nursing (including now)? No 02/08/2024 Comments Unknown Sex and Gender Information Value Date Recorded Sex Assigned at Female 05/20/2023 8:32 AM EDT Legal Sex Female 7:19 PM EDT Gender Identity Female 05/20/2023 8:32 AM EDT Sexual Orientation Not on file documented as of this encounter Plan of Treatment Upcoming Encounters Date Type Department Care Team ([facility] st Contact Info) Description 08/15/2025 9:45 AM EDT [facility] [address] [place] [address] Shaina Figueroa, DO [address] [place] [address] 10/24/2025 10:30 AM EST Office Visit NOMMarybeth Rodriguez [facility] [address] [place] [address] Shaina Figueroa, DO [address] [place] [address] documented as of this encounter Visit Diagnoses Not on filedocumented in this encounter Care Teams Game Programmer Relationship Specialty Start Date End Date Charan Delgadillo DO [address] [place] [address] PCP - General 05/20/23 documented as of this encounter
--- OUTSIDE RECORDS SUMMARY | 2025-08-02 09:03 | XMS_ITS | Encounter Summary ---
Author Organization [facility] Address [address] [facility] [place] [address] Care Team Providers Care Tobacco Conditioner Name Role Phone Leona Charan Louise DO Primary Care Provider [phone] Moni Becker MD Unavailable [phone] Encounter Details Date Type Department Care Team (Late st Contact Info) Description 09/05/2024 Orders Only [facility] [place] [facility] [address] [facility] [address] [place] [address] Shaina Figueroa, [address] [facility] [address] [place] [address] Social History Tobacco Use Types [...] often do you attend chur ch or jain services? More than 4 times per year 02/08/2024 Do you belong to any clubs o r organizations such as anglican groups, unions, fraternal or athletic groups, or [...] Recorded Patient Health Questionnaire-2 Score 0 10/12/2023 [facility] of Occupat [...] place to sleep or slept in a care home (including now)? No 02/08/2024 Comments Unknown Sex and Gender Information Value Date Recorded Sex Assigned at Female 05/20/2023 8:32 AM EDT Legal Sex Female 7:19 PM EDT Gender Identity Female 05/20/2023 8:32 AM EDT Sexual Orientation Not on file documented as of this encounter Plan of Treatment Upcoming Encounters Date Type Department Care Team ([facility] st Contact Info) Description 08/15/2025 9:45 AM EDT Office Visit [facility] [address] [place] [address] Shaina Figueroa, [address] [place] [address] 10/24/2025 10:30 AM EST Office Visit [place] [facility] [address] [place] [address] Shaina Figueroa, [address] [place] [address] documented as of this encounter Procedures Procedure Name Priority Date/Time Associated Diagnosis Comments DIABETIC RETINOPATHY SCREENING - OU - BOTH EYES Routine 09/05/2024 3:16 PM EDT documented in this encounter Results * (ABNORMAL) Diabetic Retinopathy Screening - OU - Both Eyes (09/05/2024 3:16 PM EDT) Anatomical Region Laterality Modality Head Other us Shaina Figueroa DO OPHTH PHOTOGRAPHY Final Re sult documented in this encounter Visit Diagnoses Not on filedocumented in this encounter Care Teams Tobacco Conditioner Relationship Specialty Start Date End Date Charan Delgadillo DO [address] [place] [address] PCP - General 05/20/23 Moni Becker MD [address] [place] [id number] [facility] 07/31/24 11/29/24 documented as of this encounter
--- OUTSIDE RECORDS SUMMARY | 2025-08-02 09:03 | XMS_ITS | Encounter Summary ---
Author Organization [facility] Address [address] [place] [address] Phone Care Team Providers Care Instructional Resource Teacher Name Role Phone Charan Delgadillo DO Primary Care Provider [phone] Charan Delgadillo DO Primary Care Provider [phone] Rosalinda Cordova MD Unavailable [phone] Encounter Details Date Type Department Care Team (Late Contact Info) Description 02/19/2022 Orders Only [facility] LE[facility]Y [address] [place] [address] Conversion, Onbase Social History Tobacco Use Types [...] Visit [facility] [address] [facility] [address] [place] [address] Rosalinda Cordova MD [address] [facility], [address] [place] [address] Scheduled Orders Name Type Priority Associated Diagnoses Orde r Schedule OUTSIDE LAB SCAN Lab Ordered: 02/19/2022 documented as of this encounter Visit Diagnoses Not on filedocumented in this encounter Care Teams Instructional Resource Teacher Relationship Specialty Start Date End Date Charan Delgadillo DO PCP - General 07/09/20 02/21/24 Charan Delgadillo DO PCP - General Family Medicine 02/22/24 Rosalinda Cordova MD [address] [facility] 2, [place] [id number] Consulting Physician Cardiology 02/22/24 documented as of this encounter
--- OUTSIDE RECORDS SUMMARY | 2025-08-02 09:03 | XMS_ITS | Encounter Summary ---
Author Organization [facility] Address [address] [place] [id number] Phone Care Team Providers Care Rug Cleaning Supervisor Name Role Phone Charan Delgadillo DO Primary Care Provider [phone] Charan Delgadillo DO Primary Care Provider [phone] Rosalinda Cordova MD Unavailable [phone] Encounter Details Date Type Department Care Team (Late st Contact Info) Description 11/19/2021 Orders Only [facility] LE[facility]Y [address] [place] [address] Conversion, Onbase Social History Tobacco Use Types [...] Description 11/03/2025 2:30 PM EST Office Visit [facility] [address] [facility] [address] [place] [address] Rosalinda Cordova MD [address]03 [facility] 2, [address] [place] [address] Scheduled Orders Name Type Priority Associated Diagnoses Orde r Schedule OUTSIDE LAB SCAN Lab Ordered: 11/19/2021 documented as of this encounter Visit Diagnoses Not on filedocumented in this encounter Care Teams Rug Cleaning Supervisor Relationship Specialty Start Date End Date Charan Delgadillo DO PCP - General 07/09/20 02/21/24 Charan Delgadillo DO PCP - General Family Medicine 02/22/24 Rosalinda Cordova MD [address] [facility] 2, [place] [address] Consulting Physician Cardiology 02/22/24 documented as of this encounter
--- OUTSIDE RECORDS SUMMARY | 2025-08-02 09:03 | XMS_ITS | Encounter Summary ---
Author Organization [facility] Address [address] [place] [address] Care Team Providers Care Manager In Home Name Role Phone Brysonmarybeth Charan Louise DO Primary Care Provider Encounter Details Date Type Department Care Team (Late st Contact Info) Description 02/24/2025 Abstract [facility] [place] [facility] [address] [facility] [address] [place] [address] Shaina Figueroa DO [address] [facility] [address] [place] [address] Social History Tobacco Use Types Packs/Day Years [...] often do you attend chur ch or hinduism services? More than 4 times per year 02/08/2024 Do you belong to any clubs o r organizations such as christianity groups, unions, fraternal or athletic groups, or [...] Recorded Patient Health Questionnaire-2 Score 0 02/14/2025 [facility] of Occupat ional Health - Occupational [...] Upcoming Encounters Date Type Department Care Team ([facility] st Contact Info) Description 08/15/2025 9:45 AM EDT [facility] [address] [place] [address] Shaina Figueroa, DO [address] [place] [address] 10/24/2025 10:30 AM EST Office Visit NOMMarybeth Rodriguez [facility] [address] [place] [address] Shaina Figueroa, DO [address] [place] [address] documented as of this encounter Visit Diagnoses Not on filedocumented in this encounter Care Teams Manager In Home Relationship Specialty Start Date End Date Charan Delgadillo DO [address] [place] [address] PCP - General 05/20/23 documented as of this encounter
--- OUTSIDE RECORDS SUMMARY | 2025-08-02 09:03 | XMS_ITS | Encounter Summary ---
Author Organization [facility] Address [address] [facility] [place] [address] Care Team Providers Care Java Technical Architect Name Role Phone Leona Charan Louise DO Primary Care Provider [phone] Moni Becker MD Unavailable [phone] Encounter Details Date Type Department Care Team (Late st Contact Info) Description 09/05/2024 Abstract [facility] [place] [facility] [address] [facility] [address] [place] [address] Shaina Figueroa, [address] [facility] 230 [place] [address] Social History Tobacco Use Types Packs/Day Years [...] often do you attend chur ch or mu-ism services? More than 4 times per year [...] Recorded Patient Health Questionnaire-2 Score 0 10/12/2023 [facility] of Occupat ional Health - Occupational [...] in a retirement (including now)? No 02/08/2024 Comments Unknown Sex [...] 08/15/2025 9:45 AM EDT Office Visit [facility]beth [place] [facility] [address] [place] [address] Shaina Figueroa, [address] [place] [address] 10/24/2025 10:30 AM EST Office Visit N[facility]Marybeth Rodriguez [facility] [address] [place] [address] Shaina Figueroa, DO [address] [place] [address] documented as of this encounter Visit Diagnoses Not on filedocumented in this encounter Care Teams Java Technical Architect Relationship Specialty Start Date End Date Charan Delgadillo [place] [address] PCP - General 05/20/23 Moni Becker MD [address] [place] [address] PCP - [facility] 07/31/24 11/29/24 documented as of this encounter
--- OUTSIDE RECORDS SUMMARY | 2025-08-02 09:03 | XMS_ITS | Encounter Summary ---
Author Organization [facility] Address [address] [place] [id number] Phone Care Team Providers Care Automotive Welder Name Role Phone Charan Delgadillo DO Primary Care Provider [phone] Charan Delgadillo DO Primary Care Provider [phone] Rosalinda Corodva MD Unavailable [phone] Encounter Details Date Type Department Care Team (Late st Contact Info) Description 10/22/2021 Orders Only [facility] [address] [place] [address] Conversion, Onbase Social History Tobacco Use Types [...] [facility] 7[address] [facility] 250 [place] [address] Rosalinda Cordova MD [address]03 [facility] 2, [address] [place] [address] Scheduled Orders Name Type Priority Associated Diagnoses Orde r Schedule SLEEP STUDY ORDER - ONBASE SCAN Sleep Center Ordered: 021 documented as of this encounter Visit Diagnoses Not on filedocumented in this encounter Care Teams Automotive Welder Relationship Specialty Start Date End Date Charan Delgadillo DO PCP - General 07/09/20 02/21/24 Charan Delgadillo DO PCP - General Family Medicine 02/22/24 Rosalinda Cordova MD 703 [facility] 2, [place] [address] Consulting Physician Cardiology 02/22/24 documented as of this encounter
--- OUTSIDE RECORDS SUMMARY | 2025-08-02 09:11 | XMS_ITS | CCD ---
Author Organization [facility] Care Team Providers Care Animal Shelter Manager Name Role Phone Charan Casey Unavailable Unavailable Unavailable Blas Ortiz Unavailable Charan Casey Unavailable Thierno Chatterjee Unavailable Renée Watts Unavailable Elpidio Whipple Unavailable Federico Sepulveda Unavailable [phone] DO Charan Casey Primary Care Provider DO Mathieu Paul Emergency Provider DO Charan Casey Other Provider MD Elpidio Whipple Attending Provider ROSS Ceja Attending Provider MD Dipak Amaro Attending Provider TIMOTEO Watts Attending Provider DO Charan Casey Primary Care Provider Eliud Rod Unavailable DO Charan Casey Primary Care Provider [phone] TIMOTEO Watts Attending Provider DO Charan Casey Primary Care Provider [phone] TIMOTEO Watts Attending Provider MD Federico Sepulveda Attending Provider [phone] MD Elpidio Whipple Attending Provider ACOSTA CASTRO [...] SHAKIRAER, BLANKA R Consulting Unavailable KUNBryn, DR MANCINI [...] Scott Consulting Unavailable WESTBRODERICK V Consulting Unavailable [facility] [place], DR HAIDER Primary Care Unavailable HIGHLANDER, ACOSTA [...] HIGHLANDER, ACOSTA Scott Consulting Unavailable JACINTO, DR MANCINI Primary Care [...] Dr. Charan Oliva Primary Care Unavaila ble Tasha, Rosalinda Attending Unavailable Rosalinda Torres Referring Unavailable Dr. Charan Casey Primary Care Unavaila ble Tasha, Rosalinda Attending Unavailable Tasha, Rosalinda Referring Unavailable Kuns, DO Charan Primary Care Provider Kuns, DO Charan Attending Provider Kuns, DO Charan Primary Care Provider MD Blas Ortiz Attending Provider Kuns, DO Charan Primary Care Provider Kuns, DO Charan Attending Provider MD Thierno Chatterjee Attending Provider Yasmeen Treadwell Unavailable Kuns, DO Charan Primary Care Provider MD Blas Ortiz Attending Provider MD Elpidio Whipple Attending Provider Kuns, DO Charan Primary Care Provider MD Thierno Chatterjee Attending Provider MD Blas Ortiz Attending Provider MD Elpidio Whipple Attending Provider MD Yasmeen Treadwell Attending Provider Blas Bellamy Unavailable Kuns, DO Charan Primary Care Provider MD Blas Ortiz Attending Provider [phone] Kuns, DO Charan Attending Provider Kuns, DO Charan Primary Care Provider Kuns, DO Charan Primary Care Provider Kuns Charan BASSETT Primary Care Provider Rosalinda Torres MD Unavailable ROSALINDA TORRES Attending Unavailable CHARAN CASEY MINOR Primary Care Unavailable Kuns, DO Charan Primary Care Provider [phone] Kuns, DO Charan Attending Provider MD Blas Ortiz Attending Provider Kuns, DO Charan Primary Care Provider Kuns, DO Charan Attending Provider Kuns, DO Charan Primary Care Provider Kuns, DO Charan Primary Care Provider MD Blas Ortiz Attending Provider [phone] Kuns, DO Charan Primary Care Provider ROSS Castro Attending Provider [phone] Self, Referral Attending Provider Unavailable MD Blas Ortiz Attending Provider Kuns DO, Charan Primary Care Provider Acosta Castro DPM Attending Provider [phone] Self, Referral Attending Provider Unavailable Blas Ortiz MD Attending Provider Charan Casey MD Primary Care Provider Moni Becker MD Unavailable Kunbryn BASSETT, Charan P Primary Care Provider [phone] Kuns DO, Charan Primary Care Provider Nader Curry DO Attending Provider KunCharan clemente DO Attending Provider Kuns DO, Charan Primary Care Provider Blas Ortiz MD Attending Provider Kuns Charan BASSETT Primary Care Provider [phone] Naedr Curry DO Attending Provider Nader Curry DO Attending Provider [phone] Jacinto BASSETT, Charan Primary Care Provider Charan Casey DO Attending Provider [phone] Nader Curry DO Attending Provider Jacinto DO, Charan Primary Care Provider Jacinto DOCharan P Primary Care Provider Kuns DO, Charan Primary Care Provider Brysons DO, Charan Attending Provider [phone] Blas Ortiz MD Attending Provider Jacinto DO, Charan Primary Care Provider Acosta Castro DPM Attending Provider [phone] Blas Ortiz Admitting Unavailable Blas Ortiz Attending Unavailable Kuns, Charan Primary Care Unavailable Kuns, Charan Primary Care Unavailable Acosta Castro Admitting Unavailable Acosta Castro Attending Unavailable Marques Curryin Susan Admitting Unavailable Antoinette Nader A Attending Unavailable Kuns, Charan Primary Care Unavailable Kuns, Charan Primary Care Unavailable Acosta Castro Admitting Unavailable Acosta Castro Attending Unavailable KunsCharan Attending Unavailable Kuns, Charan Admitting Unavailable Kuns, Charan Primary Care Unavailable Antoinette, Nader A Admitting Unavailable Kuns, Charan Primary Care Unavailable Antoinette Nader A Attending Unavailable Kuns, Charan Primary Care Unavailable Self, Referral Admitting Unavailable Self, Referral Attending Unavailable Antoinette, Nader A Admitting Unavailable Kuns, Charan Primary Care Unavailable Antoinette Nader A Attending Unavailable Blas Ortiz Admitting Unavailable Bals Ortiz Attending Unavailable Kuns, Charan Primary Care Unavailable Gustavo Cuevas DO Attending Provider Karla Lyons MD Attending Provider Charan Casey DO Attending Provider SHAINA MUNROE Attending Unavailable SHAINA MUNROE Attending Unavailable SHAINA MUNROE Attending Unavailable CHARAN CASEY Referring Unavailable SHAINA MUNROE Attending Unavailable Allergies Allergy Classification Reported Allergen(s) Allergy Type Date of Onset Reaction(s) Facility Lincosamides (antibiotic) (1 source) Clindamycin Drug Allergy 05-23-20 oral [facility] Quinolones (antibiotic) (1 source) levoFLOXacin Drug Allergy 05-23-20 24 hypoglycemia [place] (20 sources) Erythromycin; 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: [Erythromycin Base TABS] Drug Allergy 12-04-19 24 nausea, Nausea/vomiting , Unknown [facility] (20 sources) Clindamycin Drug Allergy 12-31-19 24 oral med - rash [place] (20 sources) arzithomycin Propensity to adverse reactions 12-31-19 24 stomach upset [place] (20 sources) erythromycin base; 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: [Erythromycin Base] Propensity to adverse reactions 03-25-20 22 Nausea Only [place] (2 sources) levoFLOXacin Drug Allergy [facility] (20 sources) levoFLOXacin; 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: [LEVOFLOXACIN] Drug Allergy 12-31-19 24 Nausea/vomiting , GI intolerance [place] Medications Current Medications Medication Drug Class(es) Dates Sig (Normalized) Sig (Original) allopurinol 100 mg oral tablet (20 sources) Xanthine Oxidase Inhibitor Start: 06-15-2020 End: 02-28-2025 take 1 tablet by mouth in the morning allopurinol (Zyloprim) 100 MG tablet Take 100 mg by mouth in the morning. 02/05/2023 Active ascorbic acid 1000 mg oral tablet (13 sources) Vitamin C take 1 tablet by [...] daily. 0 Active b complex vitamins capsule (5 sources) take 1 capsule by mouth in the morning b complex vitamins capsule Take 1 capsule by mouth in the morning. Active Bioflavonoid Products (Brooke-C) tablet (5 sources) Bioflavonoid Pro ducts (Brooke-C) tablet as directed Orally Active Blood-Glucose Sensor (Dexcom G7 Sensor) device (19 sources) Start: 09-12-2024 [...] therapy Coenzyme Q10 (CO Q 10 PO) (5 sources) Coenzyme Q10 (CO Q 10 PO) Take by mouth Active Continuous Blood Gluc Wealth Management Director (Dexcom G7 Wealth Management Director) device (8 sources) Start: 07-16-2023 Continuous Blo od Gluc Wealth Management Director (Dexcom G7 Wealth Management Director) device USE DIRECTED 07/16/2023 Active Continuous Blood Gluc Sensor (Dexcom G7 Sensor) misc (8 sources) Start: 08-18-2023 Continuous Blo od Gluc Sensor (Dexcom G7 Sensor) misc USE DIRECTED, CHANGE EVERY 10 DAYS 08/18/2023 Active CoQ-10 (15 sources) CoQ-10 Active CoQ-10 100 MG (6 sources) CoQ-10 100 MG as directed Orally ONCE A DAY Active Dexcom G6 Wealth Management Director - (20 sources) Start: 03-19-2021 Dexcom G6 [...] months Feb, Active Start: 03-19-2021 Dexcom G7 Wealth Management Director - (20 sources) Start: 07-02-2023 Dexcom G7 [...] once daily ergocalciferol (Vitamin D-2) 1.25 MG (35403 UT) capsule Take 1 capsule (50,000 Units) by mouth once daily. 08/29/2021 Active Start: 08-29-2021 take 1 tablet by nicola th two times weekly Vitamin D (Ergocalciferol) 1.25 MG (36935 UT) Oral Capsule Take 1 tablet twice weekly Quantity: 0 Refills: 0 Ordered: 14-Jan-2022 DO Start : 29-Aug-2021 Active Start: 06-15-2020 End: 03-01-2024 take 1 capsule by mouth every week Ergocalciferol (Vitamin D2) 1,250 mcg (50,000 unit) Capsule Discontinued 1250 MCG PO every week June 15, 2020 12:00am March 01, 2024 9:34am thursday take 1 capsule by mo ut every week Ergocalciferol 37583 UNIT 1 capsule Orally Q week Active take 1 capsule by mo uth every week Ergocalciferol 99062 UNIT 1 capsule Orally Q week Active [...] a day for 14 days Sep, Active 3 ml insulin degludec 200 unt/ml pen injector (17 sources) Insulin Analog Start: 07-27-2025 insulin deglud ec (Tresiba FlexTouch) 200 UNIT/ML injection Indications: Type 2 diabetes mellitus with peripheral neuropathy (HCC) Inject 30 Units under the skin Daily 9 mL 3 07/27/2025 Active Start: 07-27-2025 insulin deglud ec (Tresiba FlexTouch) 200 UNIT/ML injection Indications: Type 2 diabetes mellitus with peripheral neuropathy (HCC) Inject 30 Units under the skin Daily 9 mL 3 07/27/2025 Active Start: 02-16-2025 End: 03-06-2025 Insulin Degludec 200 unit/mL (3 mL) insulin pen Discontinued UNIT SUBCUT February 16, 2025 12:00am March 06, 2025 8:16am Start: 02-14-2025 End: 07-27-2025 insulin degludec (Tresiba Fl exTouch) 200 UNIT/ML injection Indications: Type 2 diabetes mellitus with peripheral neuropathy (HCC) Inject 60 Units under the skin Daily 9 mL 3 02/14/2025 07/27/2025 Discontinued (Dose adjustment) Insulin Degludec 200 unit/mL (3 mL) insulin [...] pen injector (20 sources) Insulin Analog Start: 02-16-2025 End: 05-15-2025 insulin lispro (HumaLOG KWIKPEN) 100 UNIT/ML injection Indications: Type 2 diabetes mellitus with peripheral neuropathy (HCC) 10 units breakfast, 14 units dinner plus correction 1:30 > 150 mg/dl (max daily 50 units) 15 mL 3 05/15/2025 Active Start: 06-21-2024 insulin lispro (HumaLOG) 100 UNIT/ML [...] BUCCAL As Directed March 24, 2022 11:00pm omega-3 acid ethyl esters (skilled nursing) 1000 mg oral capsule (20 sources) Start: 03-04-2023 take 1 capsule by mouth in the morning omega-3 acid ethyl esters (Lovaza) 1 g capsule Take 2 g by mouth in the morning and 2 g before bedtime. 03/04/2023 Active Start: 06-15-2019 End: 04-11-2025 Debord-3 Acid Ethyl Esters (L ovaza) 1 gram capsule Discontinued 2 CAP PO Twice daily 360 90 September 23, 2024 11:59am April 11, 2025 4:11pm Start: 12-25-2017 End: 01-03-2018 Debord-3 Acid Ethyl Esters (L ovaza) 1 gram Capsule Discontinued 2 CAP PO Twice daily December 25, 2017 1:00am January 03, 2018 3:03pm omega-3 acid eth yl esters (Lovaza) 1 gram capsule Take 1 capsule (1 g) by mouth twice a day. Active Pen Needle, Diabetic (2 sources) Start: 09-12-2024 Pen Needle, Di abetic Active 0 .Route September 12, 2024 1:53pm As directed Start: 09-12-2024 End: 09-12-2024 Pen Needle, Diabetic Discont inued 0 .Route September 12, 2024 12:00am September 12, 2024 1:53pm As directed polyethylene glycol 3350 326325 mg / potassium chloride 2970 mg / sodium bicarbonate 6740 mg / sodium chloride 5860 mg / sodium sulfate 92227 mg powder for oral solution (2 sources) [...] Start: 01-21-2022 take 1 capsule by mo uth once [...] mg capsule Discontinued 150 MG PO Daily 90 February 12, 2024 12:34pm February 12, 2024 [...] Discontinued 300 MG PO Daily at bedtime 90 90 February 12, 2024 12:35pm February 12, 2024 [...] Start: 05-08-2022 take 1 capsule by mo [facility] twice daily Co-Enzyme Q10 100 MG [...] Class(es) Dates Sig (Normalized) Sig (Original) Accu-Chek Ivcenta as manufactured (20 sources) Start: 12-05-2016 Accu-Chek [...] twice daily as needed for pain Hydrocodone-Acetaminophen ([place]) 5-325 mg tablet Discontinued 1 TAB PO Twice daily as needed for Pain June 19, 2020 12:00am July 27, 2020 8:14am Start: 01-17-2018 End: 06-15-2019 take 1-2 tablets by mouth every six hours as needed for pain Hydrocodone-Acetaminophen ([place]) 5-325 mg tablet Discontinued 2 TAB PO [...] with plain water Orally 1 weekly Active amitriptyline hydrochloride 25 mg oral tablet (20 [...] Start: 10-21-2023 take 1 tablet by nicola th every twelve hours Amoxicillin-Pot Clavulanate 875-125 MG [...] 10:59am Start: 10-21-2023 take 1 capsule by [facility] every eight hours Benzonatate 200 MG 1 capsule Orally Three times a day Nov, Active Yxkmntquao-Nwiotxqb-Mavgowwi ol (5 sources) Corticosteroid, beta2-Adrenergic Agonist Start: 12-09-2024 End: 01-09-2025 Ranguvtrxa-Rfcbijhd-Scsauaup ol (Breztri Aerosphere) 160-9-4.8 mcg/actuation HFA aerosol inhaler Discontinued 2 INH INHALATION Twice daily 5.December 09, 2024 1:00am January 09, 2025 10:59am SAMPLE PROVIDED Bybetjjqlw-Oyqqcnbs-Kbgbxghs ol (Breztri Aerosphere) 160-9-4.8 mcg/actuation HFA aerosol inhaler (11 sources) Start: 12-09-2024 End: 01-09-2025 Kndobhjtsy-Qfdzffjg-Wejcijcg ol (Breztri Aerosphere) 160-9-4.8 mcg/actuation HFA aerosol inhaler Discontinued 2 INH INHALATION Twice daily 5.9 December 09, 2024 1:00am January 09, 2025 10:59am SAMPLE PROVIDED Start: 12-09-2024 End: 01-09-2025 Ywanrdkovq-Rsvahnzh-Iwerclap ol (Breztri Aerosphere) 160-9-4.8 mcg/actuation HFA aerosol inhaler Discontinued 2 INH INHALATION Twice daily 5.December 09, 2024 12:00am January 09, 2025 9:59am [...] times daily as needed for back spasms July 27, 2020 12:00am February 04, 2024 11:18am doxycycline hyclate 100 mg oral tablet (17 sources) Tetracycline-cla ss Drug Start: 11-22-2024 End: 12-09-2024 take 1 [...] 15, 2019 12:00am January 17, 2020 10:26am Insulin Lispro (Humalog Kwikpen Insulin) 100 unit/mL [...] Start: 03-11-2019 take 2 tablets by mo [facility] every twenty-four hours Olmesartan Medoxomil 40 MG 2 tablet Orally Once a day for 90 day(s) Feb, Active ondansetron 4 mg disintegrating oral tablet (20 sources) Serotonin-3 Receptor Antagonist Start: 01-17-2018 End: 06-15-2019 take 1 tablet by mouth every eight hours as needed for nausea Ondansetron (Zofran Odt) 4 mg tablet,disintegrating Discontinued 4 MG PO Q8H as needed for nausea January 17, 2018 1:00am June 15, 2019 1:50pm oxyCODONE hydrochloride 5 mg oral capsule (20 sources) Opioid Agonist Start: 07-27-2020 End: 04-01-2021 take 5-10 mg by mouth every six hours as needed for pain Oxycodone 5 mg capsule Discontinued 5 - 10 MG PO Q6H as needed for pain 60 July 27, 2020 April 01, 2021 1:04pm [...] 11:15am Start: 10-28-2023 take 1 tablet by nicola [...] quadrant pain] 02-17-2018 Episodic Acquired foot deformities (8 sources) Acquired hallux malleus; 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: [Other hammer [...] [Coronary atherosclerosis of unspecified type of vessel, buckland or graft] Onset: 2 Resolved: 2 Chronic [...] 3 Chronic Other acquired deformities (20 sources) Spondylolisthesis; 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: [Spondylolisthesis, lumbar region] Episodic Other acquired deformities (4 sources) Spondylolisthesis, lumbar region; 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: [Acquired spondylolisthesis] Episodic Other aftercare (20 sources) Long-term current use of insulin; 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: [penitentiary (current) use of insulin] Onset: 3 01-13-2024 Episodic Other aftercare (20 sources) Drug therapy finding; 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: [Other exterminator helper (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 therapy] 02-17-2018 Episodic Other aftercare (5 sources) Taking high risk medication; 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: [Other exterminator helper (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 therapy] 12-30-2017 Episodic Other connective [...] muscular atrophy] Chronic Other nervous system disorders (8 sources) Carpal tunnel syndrome of right wrist; [...] Chronic Other nutritional; endocrine; and metabolic disorders (14 sources) Severe obesity; 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: [Class 2 severe obesity due to excess calories with serious comorbidity and body mass index (BMI) of 39.0 to 39.9 in adult ([facility])] Onset: 3 10-18-2024 Chronic Other nutritional; endocrine; [...] III (moderate)] Onset: 02-20-2022 Resolved: 02-20-2022 Other acquired deformities (20 sources) Lumbar spondylolisthesis; 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: [Spondylolisthesis, lumbar region] Onset: 10-12-2023 01-13-2024 Episodic Other aftercare (1 source) Other exterminator helper (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 therapy; 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: [OTH MOTOR VEHICLE REPRESENTATIVE CURRENT DRUG THERAPY] Onset: 01-06-2023 Episodic Other aftercare (1 source) long term care social worker (current) use of insulin; 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: [GROUP HOME CURRENT USE OF INSULIN] Onset: 01-06-2023 Episodic Other aftercare (1 source) long term care social worker (current) use of aspirin; 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: [MOTOR VEHICLE REPRESENTATIVE CURRENT USE OF ASPIRIN] Onset: 01-06-2023 Episodic Other aftercare (1 source) long term care social worker (current) use of anticoagulants; 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: [GROUP HOME CURRNT USE ANTICOAGULANTS] Onset: 12-25-2022 Episodic Other [...] Basophils (Bld) [#/Vol] 0.0 10 3/uL 0.0-0.1 [place] Basophils/100 WBC Auto (Bld) Ordered By: Karla Lyons on 06-30-2025 Basophils/100 WBC (Bld) 0.1 % Low 0.2-2.0 F [facility] Eosinophils/100 WBC Auto (Bl d)Ordered By: Karla Lyons on 06-30-2025 Eosinophils/100 WBC (Bld) 0.0 % Low 0.9-7.0 [place] Erythrocyte distribution wid th Auto (RBC) [Ratio]Ordered By: Karla Lyons on 06-30-2025 Erythrocyte distribution width (RBC) [Ratio] 12.2 % 11.0-15.0 [place] Globulin Calc (S) [Mass/Vol] Ordered By: Karla Lyons on 06-30-2025 Globulin (S) [Mass/Vol] 4.1 g/dL F [facility] Glomerular filtration rate ( GFR) estimation in non- AmericanOrdered By: Karla Lyons on 06-30-2025 GFR/1.73 sq M.predicted among non-blacks MDRD (S/P/Bld) [Vol rate/Area] 34 mL/min/{1.73_m2} Low >=60 mL/min/1.73 m 2 [place] Hematocrit Auto (Bld) [Volum e fraction]Ordered By: Karla Lyons on 06-30-2025 Hematocrit (Bld) [Volume fraction] 30.3 % Low 36.0-48.0 [place] Hemoglobin [Mass/volume] in BloodOrdered By: Karla Lyons on 06-30-2025 Hemoglobin (Bld) [Mass/Vol] 10.1 g/dL Low 12.0-16.0 [place] [facility] - Chemistry and C hemistry - challengeOrdered By: Karla Lyons on 06-30-2025 Albumin [Mass/Vol] 1.9 g/dL Low 3.4-5.0 [facility] ALP [Catalytic activity/Vol] 99 U/L 46-116 [place] ALT [Catalytic activity/Vol] 23 U/L 14-59 [place] AST [Catalytic activity/Vol] 14 U/L Low 15-37 [place] Bilirubin [Mass/Vol] 0.3 mg/dL 0.2-1.0 [facility] Calcium [Mass/Vol] 8.6 mg/dL 8.5-10.1 [facility] Chloride [Moles/Vol] 106 mmol/L 98-107 [facility] CO2 [Moles/Vol] 23.0 mmol/L 21.0-32.0 [facility] Creatinine [Mass/Vol] 1.54 mg/dL High 0.55-1.02 [facility] GFR/1.73 sq M.predicted MDRD (S/P/Bld) [Vol rate/Area] 41 mL/min/{1.73_m2} Low >=60 mL/min/1.73 m 2 [place] Glucose [Mass/Vol] 253 mg/dL High 74-106 [facility] Magnesium [Mass/Vol] 1.7 mg/dL Low 1.8-2.4 [facility] Potassium [Moles/Vol] 5.0 mmol/L 3.5-5.1 [facility] Protein [Mass/Vol] 6.0 g/dL Low 6.4-8.2 [facility] Sodium [Moles/Vol] 138 mmol/L 136-145 [facility] Urea nitrogen [Mass/Vol] 56.0 mg/dL High 7.0-18.0 [place] Urea nitrogen/Creatinine [Mass ratio] 36.4 mg/mg [place] [facility] - Hematology and Cell countsOrdered By: Karla Lyons on 06-30-2025 ESR (Bld) [Velocity] 106 mm/h High <=30 [facility] Immature granulocytes/100 WBC (Bld) 0.8 % High 0.0-0.5 [place] Leukocytes [#/volume] correc praneeth for nucleated erythrocytes in Blood by Automated counOrdered By: Karla Lyons on 06-30-2025 WBC corrected for nucl RBC Auto (Bld) [#/Vol] 11.8 10 3/uL High 4.0-11.0 [place] Lymphocytes Auto (Bld) [#/Vo l]Ordered By: Karla Lyons on 06-30-2025 Lymphocytes (Bld) [#/Vol] 0.8 10 3/uL Low 1.2-3.8 [place] Lymphocytes/100 WBC Auto (Bl d)Ordered By: Karla Lyons on 06-30-2025 Lymphocytes/100 WBC (Bld) 7.0 % Low 20.5-60.0 [place] MCH Auto (RBC) [Entitic mass ]Ordered By: Karla Lyons on 06-30-2025 MCH (RBC) [Entitic mass] 29.3 pg 26.7-34.0 [place] MCHC Auto (RBC) [Mass/Vol]Or dered By: Karla Lyons on 06-30-2025 MCHC (RBC) [Mass/Vol] 33.3 g/dL 29.9-35.2 [facility] MCV Auto (RBC) [Entitic vol] Ordered By: Karla Lyons on 06-30-2025 MCV (RBC) [Entitic vol] 87.8 fL 81.0-99.0 F [facility] Monocytes Auto (Bld) [#/Vol] Ordered By: Karla Lyons on 06-30-2025 Monocytes (Bld) [#/Vol] 0.5 10 3/uL 0.3-0.8 [place] Monocytes/100 WBC Auto (Bld) Ordered By: Karla Lyons on 06-30-2025 Monocytes/100 WBC (Bld) 3.9 % 1.7-12.0 [facility] Neutrophils Auto (Bld) [#/Vo l]Ordered By: Karla Lyons on 06-30-2025 Neutrophils (Bld) [#/Vol] 10.4 10 3/uL High 1.4-6.5 [place] Neutrophils/100 WBC Auto (Bl d)Ordered By: Karla Lyons on 06-30-2025 Neutrophils/100 WBC (Bld) 88.2 % High 43.0-75.0 [place] No Panel InformationOrdered By: Gustavo Cuevas on 06-30-2025 Anaerobe Identification Only [place] No Panel InformationOrdered By: Karla Lyons on 06-30-2025 C-Reactive Protein, Quantitative 17.95 mg/dL High <=0.50 [place] Eosinophils # (Auto) 0.0 10 3/uL 0.0-0.7 [facility] Immature Granulocyte # (Auto) 0.09 10 3/uL High 0.00-0.03 [place] Platelet mean volume Auto (B ld) [Entitic vol]Ordered By: Karla Lyons on 06-30-2025 Platelet mean volume (Bld) [Entitic vol] 11.5 fL 9.5-13.5 [place] Platelets Auto (Bld) [#/Vol] Ordered By: Karla Lyons on 06-30-2025 Platelets (Bld) [#/Vol] 184 10 3/uL 150-450 [place] RBC Auto (Bld) [#/Vol]Ordere d By: Karla Lyons on 06-30-2025 RBC (Bld) [#/Vol] 3.45 10 6/uL Low 4.20-5.40 [facility] Serum or plasma albumin/glob ulin mass ratioOrdered By: Karla Lyons on 06-30-2025 Albumin/Globulin [Mass ratio] 0.5 {ratio} [place] Serum or plasma anion gap de terminationOrdered By: Karla Lyons on 06-30-2025 Anion gap [Moles/Vol] 14.0 mmol/L [facility] Basophils Auto (Bld) [#/Vol] Ordered By: Karla Lyons on 06-29-2025 Basophils (Bld) [#/Vol] 0.0 10 3/uL 0.0-0.1 [place] Basophils/100 WBC Auto (Bld) Ordered By: Karla Lyons on 06-29-2025 Basophils/100 WBC (Bld) 0.1 % Low 0.2-2.0 [facility] Eosinophils/100 WBC Auto (Bl d)Ordered By: Karla Lyons on 06-29-2025 Eosinophils/100 WBC (Bld) 0.1 % Low 0.9-7.0 [place] Erythrocyte distribution wid th Auto (RBC) [Ratio]Ordered By: Karla Lyons on 06-29-2025 Erythrocyte distribution width (RBC) [Ratio] 12.3 % 11.0-15.0 [place] Globulin Calc (S) [Mass/Vol] Ordered By: Karla Lyons on 06-29-2025 Globulin (S) [Mass/Vol] 4.3 g/dL F [facility] Glomerular filtration rate ( GFR) estimation in non- AmericanOrdered By: Karla Lyons on 06-29-2025 GFR/1.73 sq M.predicted among non-blacks MDRD (S/P/Bld) [Vol rate/Area] 31 mL/min/{1.73_m2} Low >=60 mL/min/1.73 m 2 [place] Hematocrit Auto (Bld) [Volum e fraction]Ordered By: Karla Lyons on 06-29-2025 Hematocrit (Bld) [Volume fraction] 31.1 % Low 36.0-48.0 [place] Hemoglobin [Mass/volume] in BloodOrdered By: Karla Lyons on 06-29-2025 Hemoglobin (Bld) [Mass/Vol] 10.6 g/dL Low 12.0-16.0 [place] [facility] - Chemistry and C hemistry - challengeOrdered By: Karla Lyons on 06-29-2025 Albumin [Mass/Vol] 2.1 g/dL Low 3.4-5.0 [facility] ALP [Catalytic activity/Vol] 88 U/L 46-116 [place] ALT [Catalytic activity/Vol] 17 U/L 14-59 [place] AST [Catalytic activity/Vol] 14 U/L Low 15-37 [place] Bilirubin [Mass/Vol] 0.5 mg/dL 0.2-1.0 [facility] Calcium [Mass/Vol] 8.9 mg/dL 8.5-10.1 [facility] Chloride [Moles/Vol] 104 mmol/L 98-107 [facility] CO2 [Moles/Vol] 21.2 mmol/L 21.0-32.0 [facility] Creatinine [Mass/Vol] 1.68 mg/dL High 0.55-1.02 [facility] GFR/1.73 sq M.predicted MDRD (S/P/Bld) [Vol rate/Area] 37 mL/min/{1.73_m2} Low >=60 mL/min/1.73 m 2 [place] Glucose [Mass/Vol] 201 mg/dL High 74-106 [facility] Potassium [Moles/Vol] 5.1 mmol/L 3.5-5.1 [facility] Protein [Mass/Vol] 6.4 g/dL 6.4-8.2 [facility] Sodium [Moles/Vol] 137 mmol/L 136-145 [facility] Urea nitrogen [Mass/Vol] 62.0 mg/dL High 7.0-18.0 [place] Urea nitrogen/Creatinine [Mass ratio] 36.9 mg/mg [place] Laboratory - Chemistry and C hemistry - challengeOrdered By: Elpidio Whipple on 06-29-2025 Magnesium [Mass/Vol] 1.9 mg/dL 1.8-2.4 [facility] Laboratory - Hematology and Cell countsOrdered By: Karla Lyons on 06-29-2025 Immature granulocytes/100 WBC (Bld) 0.3 % 0.0-0.5 [place] Leukocytes [#/volume] correc praneeth for nucleated erythrocytes in Blood by Automated counOrdered By: Karla Lyons on 06-29-2025 WBC corrected for nucl RBC Auto (Bld) [#/Vol] 14.5 10 3/uL High 4.0-11.0 [place] Lymphocytes Auto (Bld) [#/Vo l]Ordered By: Karla Lyons on 06-29-2025 Lymphocytes (Bld) [#/Vol] 0.7 10 3/uL Low 1.2-3.8 [place] Lymphocytes/100 WBC Auto (Bl d)Ordered By: Karla Lyons on 06-29-2025 Lymphocytes/100 WBC (Bld) 4.9 % Low 20.5-60.0 [place] MCH Auto (RBC) [Entitic mass ]Ordered By: Karla Lyons on 06-29-2025 MCH (RBC) [Entitic mass] 30.1 pg 26.7-34.0 [place] MCHC Auto (RBC) [Mass/Vol]Or dered By: Karla Lyons on 06-29-2025 MCHC (RBC) [Mass/Vol] 34.1 g/dL 29.9-35.2 [facility] MCV Auto (RBC) [Entitic vol] Ordered By: Karla Lyons on 06-29-2025 MCV (RBC) [Entitic vol] 88.4 fL 81.0-99.0 [facility] Monocytes Auto (Bld) [#/Vol] Ordered By: Karla Lyons on 06-29-2025 Monocytes (Bld) [#/Vol] 0.7 10 3/uL 0.3-0.8 [place] Monocytes/100 WBC Auto (Bld) Ordered By: Karla Lyons on 06-29-2025 Monocytes/100 WBC (Bld) 4.8 % 1.7-12.0 [facility] Neutrophils Auto (Bld) [#/Vo l]Ordered By: Karla Lyons on 06-29-2025 Neutrophils (Bld) [#/Vol] 13.0 10 3/uL High 1.4-6.5 [place] Neutrophils/100 WBC Auto (Bl d)Ordered By: Karla Lyons on 06-29-2025 Neutrophils/100 WBC (Bld) 89.8 % High 43.0-75.0 [place] No Panel InformationOrdered By: Karla Lyons on 06-29-2025 Eosinophils # (Auto) 0.0 10 3/uL 0.0-0.7 [facility] Immature Granulocyte # (Auto) 0.05 10 3/uL High 0.00-0.03 [place] Platelet mean volume Auto (B ld) [Entitic vol]Ordered By: Karla Lyons on 06-29-2025 Platelet mean volume (Bld) [Entitic vol] 11.4 fL 9.5-13.5 [place] Platelets Auto (Bld) [#/Vol] Ordered By: Karla Lyons on 06-29-2025 Platelets (Bld) [#/Vol] 178 10 3/uL 150-450 [place] RBC Auto (Bld) [#/Vol]Ordere d By: Karla Lyons on 06-29-2025 RBC (Bld) [#/Vol] 3.52 10 6/uL Low 4.20-5.40 [facility] Serum or plasma albumin/glob ulin mass ratioOrdered By: Karla Lyons on 06-29-2025 Albumin/Globulin [Mass ratio] 0.5 {ratio} [place] Serum or plasma anion gap de terminationOrdered By: Karla Lyons on 06-29-2025 Anion gap [Moles/Vol] 16.9 mmol/L [facility] Basophils Auto (Bld) [#/Vol] Ordered By: Charan Casey on 06-28-2025 Basophils (Bld) [#/Vol] 0.0 10 3/uL 0.0-0.1 [place] Basophils/100 WBC Auto (Bld) Ordered By: Charan Casey on 06-28-2025 Basophils/100 WBC (Bld) 0.1 % Low 0.2-2.0 [facility] Eosinophils/100 WBC Auto (Bl d)Ordered By: Charan Casey on 06-28-2025 Eosinophils/100 WBC (Bld) 0.1 % Low 0.9-7.0 [place] Erythrocyte distribution wid th Auto (RBC) [Ratio]Ordered By: Charan Casey on 06-28-2025 Erythrocyte distribution width (RBC) [Ratio] 12.1 % 11.0-15.0 [place] Globulin Calc (S) [Mass/Vol] Ordered By: Gustavo Ceuvas on 06-28-2025 Globulin (S) [Mass/Vol] 4.6 g/dL [facility] Glomerular filtration rate ( GFR) estimation in non- AmericanOrdered By: Gustavo Cuevas on 06-28-2025 GFR/1.73 sq M.predicted among non-blacks MDRD (S/P/Bld) [Vol rate/Area] 19 mL/min/{1.73_m2} Low >=60 mL/min/1.73 m 2 [place] Hematocrit Auto (Bld) [Volum e fraction]Ordered By: Charan Casey on 06-28-2025 Hematocrit (Bld) [Volume fraction] 33.7 % Low 36.0-48.0 [place] Hemoglobin [Mass/volume] in BloodOrdered By: Charan Casey on 06-28-2025 Hemoglobin (Bld) [Mass/Vol] 11.7 g/dL Low 12.0-16.0 [place] INR in Platelet poor plasma by Coagulation assayOrdered By: Gustavo Cuevas on 06-28-2025 INR Coag (PPP) [Relative time] 1.02 {INR} [place] Comment on above: DESIRED INR:2.0-3.0 CONDITIONS NOT LISTED BELOW2.5-3.5 FOR PROSTHETIC HEART VALVE REPLACEMENT2.5-3.5 [facility] Laboratory - Chemistry and C hemistry - challengeOrdered By: Gustavo Cuevas on 06-28-2025 Albumin [Mass/Vol] 2.7 g/dL Low 3.4-5.0 [facility] ALP [Catalytic activity/Vol] 90 U/L 46-116 [place] ALT [Catalytic activity/Vol] 23 U/L 14-59 [place] AST [Catalytic activity/Vol] 25 U/L 15-37 [place] Bilirubin [Mass/Vol] 0.6 mg/dL 0.2-1.0 [facility] Calcium [Mass/Vol] 9.3 mg/dL 8.5-10.1 [facility] Chloride [Moles/Vol] 99 mmol/L 98-107 [facility] CO2 [Moles/Vol] 22.3 mmol/L 21.0-32.0 [facility] Creatinine [Mass/Vol] 2.58 mg/dL High 0.55-1.02 [facility] GFR/1.73 sq M.predicted MDRD (S/P/Bld) [Vol rate/Area] 23 mL/min/{1.73_m2} Low >=60 mL/min/1.73 m 2 [place] Glucose [Mass/Vol] 81 mg/dL 74-106 [facility] Lactate [Moles/Vol] 1.3 mmol/L 0.4-2.0 [facility] Potassium [Moles/Vol] 4.9 mmol/L 3.5-5.1 [facility] Protein [Mass/Vol] 7.3 g/dL 6.4-8.2 [facility] Sodium [Moles/Vol] 136 mmol/L 136-145 [facility] Urea nitrogen [Mass/Vol] 72.0 mg/dL High 7.0-18.0 [place] Urea nitrogen/Creatinine [Mass ratio] 27.9 mg/mg [place] Laboratory - Hematology and Cell countsOrdered By: Charan Casey on 06-28-2025 ESR (Bld) [Velocity] 104 mm/h High <=30 [facility] Immature granulocytes/100 WBC (Bld) 0.5 % 0.0-0.5 [place] Leukocytes [#/volume] correc praneeth for nucleated erythrocytes in Blood by Automated counOrdered By: Charan Casey on 06-28-2025 WBC corrected for nucl RBC Auto (Bld) [#/Vol] 17.3 10 3/uL High 4.0-11.0 [place] Lymphocytes Auto (Bld) [#/Vo l]Ordered By: Charan Casey on 06-28-2025 Lymphocytes (Bld) [#/Vol] 0.7 10 3/uL Low 1.2-3.8 [place] Lymphocytes/100 WBC Auto (Bl d)Ordered By: Charan Casey on 06-28-2025 Lymphocytes/100 WBC (Bld) 4.0 % Low 20.5-60.0 [place] MCH Auto (RBC) [Entitic mass ]Ordered By: Charan Casey on 06-28-2025 MCH (RBC) [Entitic mass] 30.4 pg 26.7-34.0 [place] MCHC Auto (RBC) [Mass/Vol]Or dered By: Charan Casey on 06-28-2025 MCHC (RBC) [Mass/Vol] 34.7 g/dL 29.9-35.2 [facility] MCV Auto (RBC) [Entitic vol] Ordered By: Charan Casey on 06-28-2025 MCV (RBC) [Entitic vol] 87.5 fL 81.0-99.0 [facility] Monocytes Auto (Bld) [#/Vol] Ordered By: Charan Casey on 06-28-2025 Monocytes (Bld) [#/Vol] 0.7 10 3/uL 0.3-0.8 [place] Monocytes/100 WBC Auto (Bld) Ordered By: Charan Casey on 06-28-2025 Monocytes/100 WBC (Bld) 4.0 % 1.7-12.0 [facility] Neutrophils Auto (Bld) [#/Vo l]Ordered By: Charan Casey on 06-28-2025 Neutrophils (Bld) [#/Vol] 15.8 10 3/uL High 1.4-6.5 [place] Neutrophils/100 WBC Auto (Bl d)Ordered By: Charan Casey on 06-28-2025 Neutrophils/100 WBC (Bld) 91.3 % High 43.0-75.0 [place] No Panel InformationOrdered By: Charan Casey on 06-28-2025 C-Reactive Protein, Quantitative 29.00 mg/dL High <=0.50 [place] Eosinophils # (Auto) 0.0 10 3/uL 0.0-0.7 [facility] Immature Granulocyte # (Auto) 0.09 10 3/uL High 0.00-0.03 [place] No Panel InformationOrdered By: Gustavo Cuevas on 06-28-2025 Venous Blood Partial Pressure CO2 41.7 mm[Hg] 40.0-52.0 [place] Venous Blood pH 7.354 7.330-7.430 [facility] Platelet mean volume Auto (B ld) [Entitic vol]Ordered By: Charan Casey on 06-28-2025 Platelet mean volume (Bld) [Entitic vol] 11.8 fL 9.5-13.5 [place] Platelets Auto (Bld) [#/Vol] Ordered By: Charan Casey on 06-28-2025 Platelets (Bld) [#/Vol] 178 10 3/uL 150-450 [place] Prothrombin time (PT)Ordered By: Gustavo Cuevas on 06-28-2025 PT Coag (PPP) [Time] 10.8 s 9.0-11.6 [facility] RBC Auto (Bld) [#/Vol]Ordere d By: Charan Casey on 06-28-2025 RBC (Bld) [#/Vol] 3.85 10 6/uL Low 4.20-5.40 [facility] Serum or plasma albumin/glob ulin mass ratioOrdered By: Gustavo Cuevas on 06-28-2025 Albumin/Globulin [Mass ratio] 0.6 {ratio} [place] Serum or plasma anion gap de terminationOrdered By: Gustavo Cuevas on 06-28-2025 Anion gap [Moles/Vol] 19.6 mmol/L [facility] X-ray reportOrdered By: Brian Mays on 06-05-2025 Study report [facility] [address] [address] XRay Report Signed Patient: Rita Cobb MR#: [id number] : 1960 Acct:[id number] Age/Sex: 64 / F ADM Date: 5 [facility] Room: Type: REG CLI Attending Dr: Acosta [...] Mays M.D. 06/05/2025 5:41 PM Dictation Location: [place] [address] Transcribed By: [facility] 06/05/251740 Dictated By: Néstor Mays MD 06/05/251734 Signed By: 06/05/25 174 [place] Work Phone: XR foot BI 3Von 06-05-2025 XR foot BI 3V [facility] [place] [address] XRay Report Signed Patient: Rita Cobb MR#: [id number] : 1960 Acct:[id number] Age/Sex: 64 / F ADM Date: 06/05/25 Loc: [facility] Room: Type: REG CLI Attending Dr: Acosta Castro DPM, MS Copies to: Acosta Castro DPM MS Ordering Provider: Acosta Castro DPM, MS Date [...] Mays M.D. 06/05/2025 5:41 PM Dictation Location: [place] [address] Transcribed By: [facility] 06/05/25 174 Dictated By: Néstor Mays MD 06/05/25 173 Signed By: 06/05/25 174 Normal [facility] HbA1c (Bld) [Mass fraction]o n 05-15-2025 Interpretation and review of laboratory results Abnormal [facility] Laboratory - Hematology and Cell countson 05-15-2025 HbA1c (Bld) [Mass fraction] 8.1 % [facility] wo con [facility] [place] [address] MRI Report Signed Patient: Rita Cobb MR#: [id number] : 1960 Acct:[id number] Age/Sex: 64 / F ADM Date: 01/23/25 Loc: [facility] Room: Type: [facility] Attending Dr: Nader Curry DO Copies to: [...] Timothy Levi M.D.01/26/2025 9:38 AM Dictation Location: [facility] Transcribed By: FRANKY 01/26/25937 Dictated By: Timothy Levi II, MD 01/26/25901 Signed By: 01/26/25937 Normal [facility] Influenza virus B Ag [Presen ce] in Upper respiratory specimen by Rapid immunoassayon 12-09-2024 FLUBV Ag IA.rapid Ql (Nph) Influenza virus B Ag [Presence] in Upper respiratory specimen by Rapid immunoassay [place] No Panel Informationon 12-09 Influenza Type A (Rapid) Negative [place] POC SARS CoV-2 Antigen Negative [facility] No Panel InformationOrdered By: Charan Casey on 12-09-2024 RSV (POC) [place] RSV (POC) [place] X-ray reportOrdered By: Brian Mays on 12-08-2024 Study report [facility] [place] [address] XRay Report Signed Patient: Rita Cobb MR#: [id number] : 1960 Acct:[id number] Age/Sex: 64 / F ADM Date: 5 Loc: [facility] Room: Type: [facility] Attending Dr: Charan Casey DO Copies [...] MD 12/08/24 1524 Signed By: 12/08/24 1559 [place] Work Phone: XR chest 2V*on 12-08-2024 XR chest 2V* [facility] Main [place] [address] [place] [id number] XRay Report Signed Patient: Rita Cobb MR#: [id number] : 1960 Acct:[id number] Age/Sex: 64 / F ADM Date: 12/08/24 [...] 1524 Signed By: 12/08/24 1559 Normal [facility] XR shoulder RT min 2V*on XR shoulder RT min 2V* [facility] [address] [place] [address] XRay Report Signed Patient: Rita Cobb MR#: [id number] : 1960 Acct:[id number] Age/Sex: 63 / F ADM Date: 10/25/24 [...] Ibis Crisostomo M.D.10/25/2024 9:11 AM Dictation Location: [place] [address] Transcribed By: [facility] 10/25/24 0911 Dictated By: Ibis Crisostomo MD 10/25/24 0908 Signed By: 10/25/24 0911 Normal [facility] HbA1c (Bld) [Mass fraction]o n 10-17-2024 Interpretation and review of laboratory results Normal [facility] Laboratory - Hematology and Cell countson 10-17-2024 HbA1c (Bld) [Mass fraction] 7.6 % [facility] MM screening mammo BI w/CADo n 09-07-2024 MM screening mammo BI w/CAD [facility] [place] [address] Mammography Report Signed Patient: Rita Cobb MR#: [id number] : 1960 Acct:[id number] Age/Sex: 63 / F ADM Date: 09/07/24 Loc: [place] Room: Type: REG CLI Attending Dr: Referral [...] Brown Jr., D.O.09/07/2024 9:04 AM Dictation Location: [facility] Transcribed By: [facility] 09/07/24903 Dictated By: Sudhir Brown Jr, DO 09/07/24899 Signed By: 09/07/24903 Normal [facility] Albumin [Mass/volume] in Ser um or Plasma by Bromocresol green (BCG) dye binding methoOrdered By: Elpidio Whipple on 02-29-2024 Albumin BCG dye [Mass/Vol] 4.3 g/dL 3.5-5.7 [place] Automated erythrocytes count in urine sediment (number/area)Ordered By: Elpidio Whipple on 02-29-2024 RBC Auto (Urine sed) [#/Area] 1-2 [HPF] 0-4 [place] Automated leukocytes count i n urine sediment (number/area)Ordered By: Elpidio Whipple on 02-29-2024 WBC Auto (Urine sed) [#/Area] 5-9 [HPF] 0-4 [place] Bilirubin Test strip Ql (U)O rdered By: Elpidio Whipple on 02-29-2024 Bilirubin Ql (U) Negative Negative [facility] Calcium [Mass/volume] in Ser um or PlasmaOrdered By: Elpidio Whipple on 02-29-2024 Calcium [Mass/Vol] 9.8 mg/dL 8.6-10.3 [facility] Carbon dioxide, total [Moles /volume] in Serum or PlasmaOrdered By: Elpidio Whipple on 02-29-2024 CO2 [Moles/Vol] 30.4 mmol/L 21.0-31.0 [facility] Chloride [Moles/volume] in S john or PlasmaOrdered By: Elpidio Whipple on 02-29-2024 Chloride [Moles/Vol] 103 mmol/L 98-107 [facility] Color Auto (U)Ordered By: Ab rahul Whipple on 02-29-2024 Color (U) Dark yellow Yellow [place] Creatinine [Mass/volume] in Serum or PlasmaOrdered By: Elpidio Whipple on 02-29-2024 Creatinine [Mass/Vol] 1.19 mg/dL 0.60-1.20 [facility] Creatinine [Mass/volume] in UrineOrdered By: Elpidio Whipple on 02-29-2024 Creatinine (U) [Mass/Vol] 101.0 mg/dL [place] Comment on above: No reference range e stablished Erythrocyte distribution wid th Auto (RBC) [Ratio]Ordered By: Elpidio Whipple on 02-29-2024 Erythrocyte distribution width (RBC) [Ratio] 12.9 % 11.9-15.3 [place] Glucose [Mass/volume] in Ser um or PlasmaOrdered By: Elpidio Whipple on 02-29-2024 Glucose [Mass/Vol] 164 mg/dL 70-100 [facility] Comment on above: ADA recommended refe rence rangeRandom Glucose Reference Range is dependent on time and content of last meal. Glucose of more than 200 mg/dL in a nonstressed, ambulatory subject supports the diagnosis of Diabetes Mellitus. Hematocrit Auto (Bld) [Volum e fraction]Ordered By: Elpidio Whipple on 02-29-2024 Hematocrit (Bld) [Volume fraction] 39.7 % 34.0-46.4 [place] Hemoglobin [Mass/volume] in BloodOrdered By: Elpidio Whipple on 02-29-2024 Hemoglobin (Bld) [Mass/Vol] 13.4 g/dL 11.8-15.4 [place] Ketones Auto test strip (U) [Mass/Vol]Ordered By: Elpidio Whipple on 02-29-2024 Ketones (U) [Mass/Vol] Negative Negative [facility] - UrinalysisOrder ed By: Elpidio Whipple on 02-29-2024 Hyaline casts LM Ql (Urine sed) 0-8 [LPF] 0-8 [place] Leukocytes [#/volume] correc praneeth for nucleated erythrocytes in Blood by Automated counOrdered By: Elpidio Whipple on 02-29-2024 WBC corrected for nucl RBC Auto (Bld) [#/Vol] 4.5 10*3/uL 3.8-11.6 [place] MCH Auto (RBC) [Entitic mass ]Ordered By: Elpidio Whipple on 02-29-2024 MCH (RBC) [Entitic mass] 29.1 pg 24.7-34.3 [place] MCHC Auto (RBC) [Mass/Vol]Or dered By: Elpidio Whipple on 02-29-2024 MCHC (RBC) [Mass/Vol] 33.8 g/dL 32.0-35.0 [facility] MCV Auto (RBC) [Entitic vol] Ordered By: Elpidio Whipple on 02-29-2024 MCV (RBC) [Entitic vol] 86.2 fL 80-100 [facility] Magnesium [Mass/volume] in S john or PlasmaOrdered By: Elpidio Whipple on 02-29-2024 Magnesium [Mass/Vol] 1.6 mg/dL 1.9-2.7 [facility] Nitrite Test strip Ql (U)Ord ered By: Elpidio Whipple on 02-29-2024 Nitrite Ql (U) Negative Negative [place] No Panel InformationOrdered By: Elpidio Whipple on 02-29-2024 Estimated GFR (CKD-EPI) 51.377 mL/Min [place] [facility] Creatinine Clearance (Chem N/A [place] Parathyrin.intact [Mass/volu me] in Serum or PlasmaOrdered By: Elpidio Whipple on 02-29-2024 Parathyrin.intact [Mass/Vol] 53.1 pg/mL 12-88 [place] Phosphate [Mass/volume] in S john or PlasmaOrdered By: Elpidio Whipple on 02-29-2024 Phosphate [Mass/Vol] 2.8 mg/dL 2.5-4.5 [facility] Platelet mean volume Auto (B ld) [Entitic vol]Ordered By: Elpidio Whipple on 02-29-2024 Platelet mean volume (Bld) [Entitic vol] 9.5 fL 6.3-10.7 [place] Platelets Auto (Bld) [#/Vol] Ordered By: Elpidio Whipple on 02-29-2024 Platelets (Bld) [#/Vol] 174 10*3/uL 150-450 [place] Potassium [Moles/volume] in Serum or PlasmaOrdered By: Elpidio Whipple on 02-29-2024 Potassium [Moles/Vol] 4.6 mmol/L 3.5-5.1 [facility] Protein Auto test strip (U) [Mass/Vol]Ordered By: Elpidio Whipple on 02-29-2024 Protein (U) [Mass/Vol] 30 mg/dL Negative [facility] Protein [Mass/volume] in Uri neOrdered By: Elpidio Whipple on 02-29-2024 Protein (U) [Mass/Vol] 43 mg/dL 0-9 [facility] RBC Auto (Bld) [#/Vol]Ordere d By: Elpidio Whipple on 02-29-2024 RBC (Bld) [#/Vol] 4.61 10*6/uL 3.60-5.00 [facility] Serum or plasma anion gap de terminationOrdered By: Elpidio Whipple on 02-29-2024 Anion gap [Moles/Vol] 11.2 mmol/L 6.0-15.0 [facility] Sodium [Moles/volume] in Ser um or PlasmaOrdered By: Elpidio Whipple on 02-29-2024 Sodium [Moles/Vol] 140 mmol/L 136-145 [facility] Specific gravity Auto test s trip (U) [Rel density]Ordered By: Elpidio Whipple on 02-29-2024 Specific gravity (U) [Rel density] 1.019 1.001-1.030 [place] Squamous epithelial cells de tection in urine sediment by light microscopyOrdered By: Elpidio Whipple on 02-29-2024 Epithelial cells.squamous LM Ql (Urine sed) 10-19 [HPF] 0-2 [place] Urate [Mass/volume] in Serum or PlasmaOrdered By: Elpidio Whipple on 02-29-2024 Urate [Mass/Vol] 7.1 mg/dL 2.3-6.6 [facility] Urea nitrogen [Mass/volume] in Serum or PlasmaOrdered By: Elpidio Whipple on 02-29-2024 Urea nitrogen [Mass/Vol] 29 mg/dL 7-25 [place] Urine bacteria detection by automated methodOrdered By: Elpidio Whipple on 02-29-2024 Bacteria Auto Ql (U) None seen None Seen [facility] Urine clarity by refractomet ry automatedOrdered By: Elpidio Whipple on 02-29-2024 Clarity Refractometry automated (U) Clear Clear [place] Urine culture routineOrdered By: Elpidio Whipple on 02-29-2024 Bacteria identified Cx Nom (U) 2 Days [place] Urine glucose measurement by automated test strip (mass/volume)Ordered By: Elpidio Whipple on 02-29-2024 Glucose Auto test strip (U) [Mass/Vol] Normal mg/dL Normal [place] Urine hemoglobin detection b y automated test stripOrdered By: Elpidio Whipple on 02-29-2024 Hemoglobin Auto test strip Ql (U) Negative Negative [place] Urine leukocyte esterase det ection by automated test stripOrdered By: Elpidio Whipple on 02-29-2024 Leukocyte esterase Auto test strip Ql (U) 2+ Negative [place] Urine protein/creatinine rat ioOrdered By: Elpidio Whipple on 02-29-2024 Protein/Creatinine (U) [Ratio] 426 mg/g{Cre} 0-200 [place] Urobilinogen Auto test strip (U) [Mass/Vol]Ordered By: Elpidio Whipple on 02-29-2024 Urobilinogen (U) [Mass/Vol] Normal mg/dL Normal [place] Vitamin D+Metabolites [Mass/ volume] in Serum or PlasmaOrdered By: Elpidio Whipple on 02-29-2024 Vitamin D+Metabolites [Mass/Vol] 48.0 ng/mL 30-100 [place] Comment on above: VITAMIN D STATUS 25( [place])VITAMIN D RANGE (ng/mL) Deficient <20 Insufficient 20 to <30Sufficient 30 to 100Reference: Nayeli MF,Hannah SCHREIBER, Jose GILBERT, et al. Evaluation,treatment, and prevention of vitamin D deficiency; an Endocrine Society clinical practice guideline. JCEM. 2010; 96(7):1911-30. pH Auto test strip (U)Ordere d By: Elpidio Whipple on 02-29-2024 pH (U) 5.5 [pH] 5.0-9.0 [place] RSVon 12-30-2023 RSV Ag IA Ql (Unsp spec) Negative [employer] Other Alanine aminotransferase [En zymatic activity/volume] in Serum or PlasmaOrdered By: Charan Casey on 11-26-2023 ALT [Catalytic activity/Vol] 16 U/L 7-52 [place] Albumin [Mass/volume] in Ser um or Plasma by Bromocresol green (BCG) dye binding methoOrdered By: Charan Casey on 11-26-2023 Albumin BCG dye [Mass/Vol] 4.2 g/dL 3.5-5.7 [place] Alkaline phosphatase [Enzyma tic activity/volume] in Serum or PlasmaOrdered By: Charan Casey on 11-26-2023 ALP [Catalytic activity/Vol] 65 U/L 34-104 [place] Aspartate aminotransferase [ Enzymatic activity/volume] in Serum or PlasmaOrdered By: Charan Casey on 11-26-2023 AST [Catalytic activity/Vol] 16 U/L 13-39 [place] Bilirubin.total [Mass/volume ] in Serum or PlasmaOrdered By: Charan Casey on 11-26-2023 Bilirubin [Mass/Vol] 0.6 mg/dL 0.3-1.0 [facility] Calcium [Mass/volume] in Ser um or PlasmaOrdered By: Charan Casey on 11-26-2023 Calcium [Mass/Vol] 9.8 mg/dL 8.6-10.3 [facility] Carbon dioxide, total [Moles /volume] in Serum or PlasmaOrdered By: Charan Casey on 11-26-2023 CO2 [Moles/Vol] 34.6 mmol/L 21.0-31.0 [facility] Chloride [Moles/volume] in S john or PlasmaOrdered By: Charan Casey on 11-26-2023 Chloride [Moles/Vol] 101 mmol/L 98-107 [facility] Cholesterol [Mass/volume] in Serum or PlasmaOrdered By: Charan Casey on 11-26-2023 Cholesterol [Mass/Vol] 140 mg/dL 140-200 [facility] Comment on above: Chol less than 200 m g/dl low riskChol 201-239 mg/dl borderline riskChol 240 mg/dl and greater high risk Cholesterol in LDL Calc [Mas s/Vol]Ordered By: Charan Casey on 11-26-2023 Cholesterol in LDL [Mass/Vol] 56 mg/dL 0-100 [place] Comment on above: LDL ATP III CLASSIFI CATIONLDL less than 100 mg/dL OptimalLDL 100-129 mg/dL Near or above optimalLDL 130-159 mg/dL Borderline highLDL 160-189 mg/dL HighLDL greater than 189 mg/dL Very high Cholesterol in VLDL Calc [Ma ss/Vol]Ordered By: Charan Casey on 11-26-2023 Cholesterol in VLDL [Mass/Vol] 45 mg/dL [place] Creatinine [Mass/volume] in Serum or PlasmaOrdered By: Charan Casey on 11-26-2023 Creatinine [Mass/Vol] 1.25 mg/dL 0.60-1.20 [facility] Globulin Calc (S) [Mass/Vol] Ordered By: Charan Casey on 11-26-2023 Globulin (S) [Mass/Vol] 2.6 g/dL [facility] Glucose [Mass/volume] in Ser um or PlasmaOrdered By: Charan Casey on 11-26-2023 Glucose [Mass/Vol] 122 mg/dL 70-100 [facility] Comment on above: ADA recommended refe rence rangeRandom Glucose Reference Range is dependent on time and content of last meal. Glucose of more than 200 mg/dL in a nonstressed, ambulatory subject supports the diagnosis of Diabetes Mellitus. No Panel InformationOrdered By: Charan Casey on 11-26-2023 Estimated GFR (CKD-EPI) 48.432 mL/Min [place] [facility] Creatinine Clearance (Chem N/A [place] Potassium [Moles/volume] in Serum or PlasmaOrdered By: Charan Casey on 11-26-2023 Potassium [Moles/Vol] 4.6 mmol/L 3.5-5.1 [facility] Protein [Mass/volume] in Ser um or PlasmaOrdered By: Charan Casey on 11-26-2023 Protein [Mass/Vol] 6.8 g/dL 6.4-8.9 [facility] Serum or plasma albumin/glob ulin mass ratioOrdered By: Charan Casey on 11-26-2023 Albumin/Globulin [Mass ratio] 1.6 {ratio} [place] Serum or plasma anion gap de terminationOrdered By: Charan Casey on 11-26-2023 Anion gap [Moles/Vol] 9.0 mmol/L 6.0-15.0 [facility] Serum or plasma high density lipoprotein (HDL) cholesterol measurementOrdered By: Charan Casey on 11-26-2023 Cholesterol in HDL [Mass/Vol] 39 mg/dL 23-92 [place] Comment on above: HDL CHOL ATP-III CLA SSIFICATION Cardiovascular RiskHDL > or equal to 60 mg/dL LOWHDL < 40 mg/dL HIGH Serum or plasma total choles terol/high density lipoprotein (HDL) cholesterol mass ratOrdered By: Charan Casey on 11-26-2023 Cholesterol.total/Mary sterol in HDL [Mass ratio] 3.6 {ratio} <5.0 [place] Sodium [Moles/volume] in Ser um or PlasmaOrdered By: Charan Casey on 11-26-2023 Sodium [Moles/Vol] 140 mmol/L 136-145 [facility] Triglyceride [Mass/volume] i n Serum or PlasmaOrdered By: Charan Casey on 11-26-2023 Triglyceride [Mass/Vol] 227 mg/dL 0-149 [facility] Comment on above: TRIG ATP III CLASSIF ICATIONTRIG less than 150 mg/dL NormalTRIG 150-199 mg/dL Borderline highTRIG 200-500 mg/dL High TRIG greater than 500 mg/dL Very highStandard traceable to the Center for Disease Conrtrol and Prevention (CDC) test method. Urea nitrogen [Mass/volume] in Serum or PlasmaOrdered By: Charan Casey on 11-26-2023 Urea nitrogen [Mass/Vol] 32 mg/dL 06-23 [place] Glucose Glucometer (BldC) [M ass/Vol]Ordered By: Yasmeen Treadwell on 10-06-2023 Glucose [Mass/Vol] 150 mg/dL [facility] Comment on above: Random Glucose Refer ence Range is dependent on time and content of last meal. Glucose of more than 200 mg/dL in a nonstressed, ambulatory subject supports the diagnosis of Diabetes Mellitus. Albumin [Mass/volume] in Ser um or Plasma by Bromocresol green (BCG) dye binding methoOrdered By: Elpidio Whipple on 09-14-2023 Albumin BCG dye [Mass/Vol] 4.5 g/dL 3.5-5.7 [place] Automated erythrocytes count in urine sediment (number/area)Ordered By: Elpidio Whipple on 09-14-2023 RBC Auto (Urine sed) [#/Area] None seen [HPF] 0-4 [place] Automated leukocytes count i n urine sediment (number/area)Ordered By: Elpidio Whipple on 09-14-2023 WBC Auto (Urine sed) [#/Area] 1-2 [HPF] 0-4 [place] Bilirubin Test strip Ql (U)O rdered By: Elpidio Whipple on 09-14-2023 Bilirubin Ql (U) Negative Negative [facility] Calcium [Mass/volume] in Ser um or PlasmaOrdered By: Elpidio Whipple on 09-14-2023 Calcium [Mass/Vol] 9.5 mg/dL 8.6-10.3 [facility] Carbon dioxide, total [Moles /volume] in Serum or PlasmaOrdered By: Elpidio Whipple on 09-14-2023 CO2 [Moles/Vol] 29.7 mmol/L 21.0-31.0 [facility] Chloride [Moles/volume] in S john or PlasmaOrdered By: Elpidio Whipple on 09-14-2023 Chloride [Moles/Vol] 106 mmol/L 98-107 [facility] Color Auto (U)Ordered By: Ab rahul Whipple on 09-14-2023 Color (U) Dark yellow Yellow [place] Creatinine [Mass/volume] in Serum or PlasmaOrdered By: Elpidio Whipple on 09-14-2023 Creatinine [Mass/Vol] 1.29 mg/dL 0.60-1.20 [facility] Creatinine [Mass/volume] in UrineOrdered By: Elpidio Whipple on 09-14-2023 Creatinine (U) [Mass/Vol] 87.0 mg/dL 11.0-20.0 [place] Erythrocyte distribution wid th Auto (RBC) [Ratio]Ordered By: Elpidio Whipple on 09-14-2023 Erythrocyte distribution width (RBC) [Ratio] 13.5 % 11.9-15.3 [place] Glucose [Mass/volume] in Ser um or PlasmaOrdered By: Elpidio Whipple on 09-14-2023 Glucose [Mass/Vol] 97 mg/dL 70-100 [facility] Comment on above: ADA recommended refe rence rangeRandom Glucose Reference Range is dependent on time and content of last meal. Glucose of more than 200 mg/dL in a nonstressed, ambulatory subject supports the diagnosis of Diabetes Mellitus. Hematocrit Auto (Bld) [Volum e fraction]Ordered By: Elpidio Whipple on 09-14-2023 Hematocrit (Bld) [Volume fraction] 42.7 % 34.0-46.4 [place] Hemoglobin [Mass/volume] in BloodOrdered By: Elpidio Whipple on 09-14-2023 Hemoglobin (Bld) [Mass/Vol] 14.3 g/dL 11.8-15.4 [place] Ketones Auto test strip (U) [Mass/Vol]Ordered By: Elpidio Whipple on 09-14-2023 Ketones (U) [Mass/Vol] Negative Negative [facility] - UrinalysisOrder ed By: Elpidio Whipple on 09-14-2023 Hyaline casts LM Ql (Urine sed) 0-8 [LPF] 0-8 [place] Leukocytes [#/volume] correc praneeth for nucleated erythrocytes in Blood by Automated counOrdered By: Elpidio Whipple on 09-14-2023 WBC corrected for nucl RBC Auto (Bld) [#/Vol] 7.7 10*3/uL 3.8-11.6 [place] MCH Auto (RBC) [Entitic mass ]Ordered By: Elpidio Whipple on 09-14-2023 MCH (RBC) [Entitic mass] 29.1 pg 24.7-34.3 [place] MCHC Auto (RBC) [Mass/Vol]Or dered By: Elpidio Whipple on 09-14-2023 MCHC (RBC) [Mass/Vol] 33.6 g/dL 32.0-35.0 [facility] MCV Auto (RBC) [Entitic vol] Ordered By: Elpidio Whipple on 09-14-2023 MCV (RBC) [Entitic vol] 86.5 fL 80-100 [facility] Magnesium [Mass/volume] in S john or PlasmaOrdered By: Elpidio Whipple on 09-14-2023 Magnesium [Mass/Vol] 1.9 mg/dL 1.9-2.7 [facility] Nitrite Test strip Ql (U)Ord ered By: Elpidio Whipple on 09-14-2023 Nitrite Ql (U) Negative Negative [place] No Panel InformationOrdered By: Elpidio Whipple on 09-14-2023 Estimated GFR (CKD-EPI) 46.926 mL/Min [place] [facility] Creatinine Clearance (Chem N/A [place] Parathyrin.intact [Mass/volu me] in Serum or PlasmaOrdered By: Elpidio Whipple on 09-14-2023 Parathyrin.intact [Mass/Vol] 133.6 pg/mL 12-88 [place] Phosphate [Mass/volume] in S john or PlasmaOrdered By: Elpidio Silvadir on 09-14-2023 Phosphate [Mass/Vol] 3.4 mg/dL 3.7-7.2 [facility] Platelet mean volume Auto (B ld) [Entitic vol]Ordered By: Elpidio Sole on 09-14-2023 Platelet mean volume (Bld) [Entitic vol] 10.0 fL 6.3-10.7 [place] Platelets Auto (Bld) [#/Vol] Ordered By: Elpidio Sole on 09-14-2023 Platelets (Bld) [#/Vol] 193 10*3/uL 150-450 [place] Potassium [Moles/volume] in Serum or PlasmaOrdered By: Elpidio Sole on 09-14-2023 Potassium [Moles/Vol] 4.7 mmol/L 3.5-5.1 [facility] Protein Auto test strip (U) [Mass/Vol]Ordered By: Elpidio Sole on 09-14-2023 Protein (U) [Mass/Vol] Negative Negative [facility] Protein [Mass/volume] in Uri neOrdered By: Elpidio Sole on 09-14-2023 Protein (U) [Mass/Vol] 12 mg/dL 0-9 [facility] RBC Auto (Bld) [#/Vol]Ordere d By: Elpidio Sole on 09-14-2023 RBC (Bld) [#/Vol] 4.93 10*6/uL 3.60-5.00 [facility] Serum or plasma anion gap de terminationOrdered By: Elpidio Sole on 09-14-2023 Anion gap [Moles/Vol] 11.0 mmol/L 6.0-15.0 [facility] Sodium [Moles/volume] in Ser um or PlasmaOrdered By: Elpidio Sole on 09-14-2023 Sodium [Moles/Vol] 142 mmol/L 136-145 [facility] Specific gravity Auto test s trip (U) [Rel density]Ordered By: Elpidio Sole on 09-14-2023 Specific gravity (U) [Rel density] 1.020 1.001-1.030 [place] Squamous epithelial cells de tection in urine sediment by light microscopyOrdered By: Elpidio Whipple on 09-14-2023 Epithelial cells.squamous LM Ql (Urine sed) 3-4 [HPF] 0-2 [place] Urate [Mass/volume] in Serum or PlasmaOrdered By: Elpidio Whipple on 09-14-2023 Urate [Mass/Vol] 6.2 mg/dL 2.3-6.6 [facility] Urea nitrogen [Mass/volume] in Serum or PlasmaOrdered By: Elpidio Whipple on 09-14-2023 Urea nitrogen [Mass/Vol] 46 mg/dL 7-25 [place] Urine bacteria detection by automated methodOrdered By: Elpidio Whipple on 09-14-2023 Bacteria Auto Ql (U) None seen None Seen [facility] Urine clarity by refractomet ry automatedOrdered By: Elpidio Whipple on 09-14-2023 Clarity Refractometry automated (U) Clear Clear [place] Urine glucose measurement by automated test strip (mass/volume)Ordered By: Elpidio Whipple on 09-14-2023 Glucose Auto test strip (U) [Mass/Vol] Normal mg/dL Normal [place] Urine hemoglobin detection b y automated test stripOrdered By: Elpidio Whipple on 09-14-2023 Hemoglobin Auto test strip Ql (U) Negative Negative [place] Urine leukocyte esterase det ection by automated test stripOrdered By: Elpidio Whipple on 09-14-2023 Leukocyte esterase Auto test strip Ql (U) 1+ Negative [place] Urine protein/creatinine rat ioOrdered By: Elpidio Whipple on 09-14-2023 Protein/Creatinine (U) [Ratio] 138 mg/g{Cre} 0-200 [place] Urobilinogen Auto test strip (U) [Mass/Vol]Ordered By: Elpidio Whipple on 09-14-2023 Urobilinogen (U) [Mass/Vol] Normal mg/dL Normal [place] Vitamin D+Metabolites [Mass/ volume] in Serum or PlasmaOrdered By: Elpidio Whipple on 09-14-2023 Vitamin D+Metabolites [Mass/Vol] 50.6 ng/mL 30-100 [place] Comment on above: VITAMIN D STATUS 25( [place])VITAMIN D RANGE (ng/mL) Deficient <20 Insufficient 20 to <30Sufficient 30 to 100Reference: Nayeli MF,Hannah SCHREIBER, Jose GILBERT, et al. Evaluation,treatment, and prevention of vitamin D deficiency; an Endocrine Society clinical practice guideline. JCEM. 2010; 96(7):1911-30. pH Auto test strip (U)Ordere d By: Elpidio Whipple on 09-14-2023 pH (U) 5.5 [pH] 5.0-9.0 [place] Urine 10 SGon 05-19-2023 Albumin DL <= 20 mg/L (U) [Mass/Vol] Negative [employer] Other pH (U) 6.0 [pH] [employer] Other Urine 10 SG Negative [employer] Other Urine 10 SG 1.010 [employer] Other Urine 10 SG 0.2 [employer] Other Height or Weight NOT Doneon 04-30-2023 Adult depression screening assessment No [facility] [email or web address] DO Work Phone: Fall risk assessment a) No falls within the last year [facility] [employer] DO Work Phone: Tobacco use status [facility] b) No [facility] [employer] DO Work Phone: Office Visit (Cardiology)on 04-30-2023 [...] any trouble since her angioplasty. She has Tvjypvh-Ykfqg-Plenp disease and had recent surgery on the [...] machine patient has been compliant with it. 7?Mtgocni-Lgnjn-Xdahl joint in the ankles status post recent [...] TABLET DAILY. Vitamin D (Ergocalciferol) 1.25 MG (05767 UT) Oral CapsuleTake 1 tablet twice weekly Allergies Medication Erythromycin Base TABS Adverse Reaction; Gatrointestinal upset; Updated By: Adrianna Emanuel; (more content not included)... Normal [facility] POINT OF CARE GLUCOSEon 03-30 Glucose [Mass/Vol] 215 mg/dL Critically high 74-106 [facility] Comment on above: Performed By: #### P OCGLUC ####[facility] [address] [place] [address]Dr. Tere Soto PROF CHEM 8 (BAS METB)on Anion gap [Moles/Vol] 9.6 mmol/L Normal [facility] Comment on above: Performed By: #### B MP ####[facility] [address] [place], [place] [address]Dr. Tere Soto Calcium [Mass/Vol] 10.3 mg/dL Critically high 8.5-10.1 [facility] Comment on above: Performed By: #### B MP ####[facility] [address] [place], [place] [address]Dr. Tere Soto Chloride [Moles/Vol] 103 mmol/L Normal 98-107 [facility] Comment on above: Performed By: #### B MP ####[facility] [address] [place], [place] [address]Dr. Tere Soto CO2 [Moles/Vol] 31.0 mmol/L Normal 21.0-32.0 [facility] Comment on above: Performed By: #### B MP ####[facility] [address] [place], [place] [address]Dr. Tere Soto Creatinine [Mass/Vol] 1.48 mg/dL Critically high 0.55-1.02 [facility] Comment on above: Performed By: #### B MP ####[facility] [address] [place], [place] [address]Dr. Tere Soto EGFR-AF TUNISIAN 43 mL/min/1.73m2 Critically low >=60 [facility] Comment on above: Performed By: #### B MP ####[facility] [address] [place], [place] [address]Dr. Tere Soto EGFR-NON AF TUNISIAN 36 mL/min/1.73m2 Critically low >=60 [facility] Comment on above: Performed By: #### B MP ####[facility] [address] [place], [place] [address]Sr. Tere oSto Glucose [Mass/Vol] 173 mg/dL Critically high 74-106 [facility] Comment on above: Performed By: #### B MP ####[facility] [address] [place], [place] [address]Oq. Tere Soto Potassium [Moles/Vol] 4.6 mmol/L Normal 3.5-5.1 [facility] Comment on above: Performed By: #### B MP ####[facility] [address] [place] [id number]. Tere Soto Sodium [Moles/Vol] 139 mmol/L Normal 136-145 [facility] Comment on above: Performed By: #### B MP ####[facility] [address] [place] [address]Dr. Tere Soto Urea nitrogen [Mass/Vol] 63.0 mg/dL Critically high 7.0-18.0 [facility] Comment on above: Performed By: #### B MP ####[facility] [address] [place] [id number]. Tere Soto Urea nitrogen/Creatinine [Mass ratio] 42.6 mg/mg Normal [facility] Comment on above: Performed By: #### B MP ####[facility] [address] [place] [id number]. Tere Soto CT FOOT LT WO CONon [...] BLANKA OLGUIN Date: 2023-03-23 14:59 Normal [facility] Albumin [Mass/volume] in Ser um or Plasma by Bromocresol green (BCG) dye binding methoOrdered By: Elpidio Whipple on 03-06-2023 Albumin BCG dye [Mass/Vol] 4.7 g/dL 3.5-5.7 [place] Automated erythrocytes count in urine sediment (number/area)Ordered By: Elpidio Whipple on 03-06-2023 RBC Auto (Urine sed) [#/Area] None seen [HPF] 0-4 [place] Automated leukocytes count i n urine sediment (number/area)Ordered By: Elpidio Whipple on 03-06-2023 WBC Auto (Urine sed) [#/Area] 5-9 [HPF] 0-4 [place] Bilirubin Test strip Ql (U)O rdered By: Elpidio Whipple on 03-06-2023 Bilirubin Ql (U) Negative Negative [facility] Calcium [Mass/volume] in Ser um or PlasmaOrdered By: Elpidio Whipple on 03-06-2023 Calcium [Mass/Vol] 10.2 mg/dL 8.6-10.3 [facility] Carbon dioxide, total [Moles /volume] in Serum or PlasmaOrdered By: Elpidio Whipple on 03-06-2023 CO2 [Moles/Vol] 28.4 mmol/L 21.0-31.0 [facility] Chloride [Moles/volume] in S john or PlasmaOrdered By: Elpidio Whipple on 03-06-2023 Chloride [Moles/Vol] 104 mmol/L 98-107 [facility] Color Auto (U)Ordered By: Ab rahul Whipple on 03-06-2023 Color (U) Dark yellow Yellow [place] Creatinine [Mass/volume] in Serum or PlasmaOrdered By: Elpidio Whipple on 03-06-2023 Creatinine [Mass/Vol] 1.22 mg/dL 0.60-1.20 [facility] Creatinine [Mass/volume] in UrineOrdered By: Elpidio Whipple on 03-06-2023 Creatinine (U) [Mass/Vol] 98.0 mg/dL [place] Comment on above: No reference range e stablished Erythrocyte distribution wid th Auto (RBC) [Ratio]Ordered By: Elpidio Whipple on 03-06-2023 Erythrocyte distribution width (RBC) [Ratio] 13.8 % 11.9-15.3 [place] Glucose [Mass/volume] in Ser um or PlasmaOrdered By: Elpidio Whipple on 03-06-2023 Glucose [Mass/Vol] 101 mg/dL 70-100 [facility] Comment on above: ADA recommended refe rence rangeRandom Glucose Reference Range is dependent on time and content of last meal. Glucose of more than 200 mg/dL in a nonstressed, ambulatory subject supports the diagnosis of Diabetes Mellitus. Hematocrit Auto (Bld) [Volum e fraction]Ordered By: Elpidio Whipple on 03-06-2023 Hematocrit (Bld) [Volume fraction] 38.1 % 34.0-46.4 [place] Hemoglobin [Mass/volume] in BloodOrdered By: Elpidio Whipple 03-06-2023 Hemoglobin (Bld) [Mass/Vol] 12.7 g/dL 11.8-15.4 [place] Ketones Auto test strip (U) [Mass/Vol]Ordered By: Elpidio Whipple on 03-06-2023 Ketones (U) [Mass/Vol] Negative Negative [facility] Laboratory - UrinalysisOrder ed By: Elpidio Whipple on 03-06-2023 Hyaline casts LM Ql (Urine sed) 0-8 [LPF] 0-8 [place] Leukocytes [#/volume] correc praneeth for nucleated erythrocytes in Blood by Automated counOrdered By: Elpidio Whipple on 03-06-2023 WBC corrected for nucl RBC Auto (Bld) [#/Vol] 5.4 10*3/uL 3.8-11.6 [place] MCH Auto (RBC) [Entitic mass ]Ordered By: Elpidio Whipple on 03-06-2023 MCH (RBC) [Entitic mass] 28.1 pg 24.7-34.3 [place] MCHC Auto (RBC) [Mass/Vol]Or dered By: Elpidio Whipple on 03-06-2023 MCHC (RBC) [Mass/Vol] 33.3 g/dL 32.0-35.0 [facility] MCV Auto (RBC) [Entitic vol] Ordered By: Elpidio Whipple on 03-06-2023 MCV (RBC) [Entitic vol] 84.5 fL 80-100 F [facility] Magnesium [Mass/volume] in S john or PlasmaOrdered By: Elpidio Whipple on 03-06-2023 Magnesium [Mass/Vol] 1.5 mg/dL 1.9-2.7 [facility] Nitrite Test strip Ql (U)Ord ered By: Elpidio Whipple on 03-06-2023 Nitrite Ql (U) Negative Negative [place] No Panel InformationOrdered By: Elpidio Whipple on 03-06-2023 Estimated GFR (CKD-EPI) 50.176 mL/Min [place] [facility] Creatinine Clearance (Chem N/A [place] Parathyrin.intact [Mass/volu me] in Serum or PlasmaOrdered By: Elpidio Whipple on 03-06-2023 Parathyrin.intact [Mass/Vol] 43.8 pg/mL 12-88 [place] Phosphate [Mass/volume] in S john or PlasmaOrdered By: Elpidio Whipple on 03-06-2023 Phosphate [Mass/Vol] 4.3 mg/dL 3.7-7.2 [facility] Platelet mean volume Auto (B ld) [Entitic vol]Ordered By: Elpidio Whipple on 03-06-2023 Platelet mean volume (Bld) [Entitic vol] 8.7 fL 6.3-10.7 [place] Platelets Auto (Bld) [#/Vol] Ordered By: Elpidio Sole on 03-06-2023 Platelets (Bld) [#/Vol] 191 10*3/uL 150-450 [place] Potassium [Moles/volume] in Serum or PlasmaOrdered By: Elpidio Sole on 03-06-2023 Potassium [Moles/Vol] 4.0 mmol/L 3.5-5.1 [facility] Protein Auto test strip (U) [Mass/Vol]Ordered By: Elpidio Sole on 03-06-2023 Protein (U) [Mass/Vol] Negative Negative [facility] Protein [Mass/volume] in Uri neOrdered By: Elpidio Sole on 03-06-2023 Protein (U) [Mass/Vol] 8 mg/dL 0-9 Fi [facility] RBC Auto (Bld) [#/Vol]Ordere d By: Elpidio Sole on 03-06-2023 RBC (Bld) [#/Vol] 4.51 10*6/uL 3.60-5.00 [facility] Serum or plasma anion gap de terminationOrdered By: Elpidio Sole on 03-06-2023 Anion gap [Moles/Vol] 12.6 mmol/L 6.0-15.0 [facility] Sodium [Moles/volume] in Ser um or PlasmaOrdered By: Elpidio Sole on 03-06-2023 Sodium [Moles/Vol] 141 mmol/L 136-145 [facility] Specific gravity Auto test s trip (U) [Rel density]Ordered By: Elpidio Zarater on 03-06-2023 Specific gravity (U) [Rel density] 1.017 1.001-1.030 [place] Squamous epithelial cells de tection in urine sediment by light microscopyOrdered By: Elpidio Zarater on 03-06-2023 Epithelial cells.squamous LM Ql (Urine sed) 5-9 [HPF] 0-2 [place] Urate [Mass/volume] in Serum or PlasmaOrdered By: Elpidio Sole on 03-06-2023 Urate [Mass/Vol] 6.7 mg/dL 2.3-6.6 [facility] Urea nitrogen [Mass/volume] in Serum or PlasmaOrdered By: Elpidio Whipple on 03-06-2023 Urea nitrogen [Mass/Vol] 37 mg/dL 7-25 [place] Urine bacteria detection by automated methodOrdered By: Elpidio Whipple on 03-06-2023 Bacteria Auto Ql (U) None seen None Seen [facility] Urine clarity by refractomet ry automatedOrdered By: Elpidio Whipple on 03-06-2023 Clarity Refractometry automated (U) Clear Clear [place] Urine culture routineOrdered By: Elpidio Whipple on 03-06-2023 Bacteria identified Cx Nom (U) 2 Days [place] Urine glucose measurement by automated test strip (mass/volume)Ordered By: Elpidio Whipple on 03-06-2023 Glucose Auto test strip (U) [Mass/Vol] Normal mg/dL Normal [place] Urine hemoglobin detection b y automated test stripOrdered By: Elpidio Whipple on 03-06-2023 Hemoglobin Auto test strip Ql (U) Negative Negative [place] Urine leukocyte esterase det ection by automated test stripOrdered By: Elpidio Whipple on 03-06-2023 Leukocyte esterase Auto test strip Ql (U) 2+ Negative [place] Urine protein/creatinine rat ioOrdered By: Elpidio Whipple on 03-06-2023 Protein/Creatinine (U) [Ratio] 82 mg/g{Cre} 0-200 [place] Urobilinogen Auto test strip (U) [Mass/Vol]Ordered By: Elpidio Whipple on 03-06-2023 Urobilinogen (U) [Mass/Vol] Normal mg/dL Normal [place] Vitamin D+Metabolites [Mass/ volume] in Serum or PlasmaOrdered By: Elpidio Whipple on 03-06-2023 Vitamin D+Metabolites [Mass/Vol] 46.0 ng/mL 30-100 [place] Comment on above: VITAMIN D STATUS 25( [place])VITAMIN D RANGE (ng/mL) Deficient <20 Insufficient 20 to <30Sufficient 30 to 100Reference: Nayeli MF,Hannah NC, Jose GILBERT, et al. Evaluation,treatment, and prevention of vitamin D deficiency; an Endocrine Society clinical practice guideline. JCEM. 2010; 96(7):1911-30. pH Auto test strip (U)Ketan scott By: Elpidio Whipple on 03-06-2023 pH (U) 5.5 [pH] 5.0-9.0 [place] XR FOOT LAURA MIN 3 VIEWSon XR [...] BRODERICK FLOR Date: 2023-02-17 14:34 Normal [facility] CBC AUTO DIFFon 12-23-2022 BASO # 0.0 103/ul Normal 0.0-0.1 [facility] Comment on above: Performed By: #### C BC #### [facility] [address] [address] [address] Tere Soto Basophils/100 WBC (Bld) 0.6 % Normal 0.2-2.0 [facility] Comment on above: Performed By: #### C BC #### [facility] [address] [address] [address] Tere Soto EO # 0.1 103/ul Normal 0.0-0.7 [facility] Comment on above: Performed By: #### C BC #### [facility] [address] [place] [address] Dr. Tere Soto Eosinophils/100 WBC (Bld) 2.9 % Normal 0.9-7.0 [facility] Comment on above: Performed By: #### C BC #### [facility] [address] [place] [address] Dr. Tere Soto Erythrocyte distribution width (RBC) [Ratio] 13.2 % Normal 11.0-15.0 [facility] Comment on above: Performed By: #### C BC #### [facility] [address] [place] [address] Dr. Tere Soto Hematocrit (Bld) [Volume fraction] 39.0 % Normal 36.0-48.0 [facility] Comment on above: Performed By: #### C BC #### [facility] [address] [place] [address] Dr. Tere Soto Hemoglobin (Bld) [Mass/Vol] 13.0 g/dL Normal 12.0-16.0 [facility] Comment on above: Performed By: #### C BC #### [facility] [address] [place] [address] Dr. Tere Soto IG # 0.01 10e3/ul Normal 0.00-0.03 [facility] Comment on above: Performed By: #### C BC #### [facility] [address] [place] [address] Dr. Tere Soto IG % 0.2 % Normal 0.0-0.[address] [facility] Comment on above: Performed By: #### C BC #### [facility] [address] [place] [address] Dr. Tere Soto LYMPH # 2.1 103/ul Normal 1.2-3.[address] [facility] Comment on above: Performed By: #### C BC #### [facility] [address] [place] [address] Dr. Tere Soto Lymphocytes/100 WBC (Bld) 42.6 % Normal 20.5-60.0 [facility] Comment on above: Performed By: #### C BC #### [facility] [address] [place] [address] Dr. Tere Soto MANUAL DIFF REQ NO Normal [facility] Comment on above: Performed By: #### C BC #### [facility] [address] [place] [address] Dr. Tere Soto MCH (RBC) [Entitic mass] 28.4 pg Normal 26.7-34.0 [facility] Comment on above: Performed By: #### C BC #### [facility] [address] [place] [address] Dr. Tere Soto MCHC (RBC) [Mass/Vol] 33.3 g/dL Normal 29.9-35.2 [facility] Comment on above: Performed By: #### C BC #### [facility] [address] [place] [address] Dr. Tere Soto MCV (RBC) [Entitic vol] 85.2 fL Normal 81.0-99.0 [facility] Comment on above: Performed By: #### C BC #### [facility] [address] [place] [address] Dr. Tere Soto MONO # 0.3 103/ul Normal 0.3-0.8 [facility] Comment on above: Performed By: #### C BC #### [facility] [address] [place] [address] Dr. Tere Soto Monocytes/100 WBC (Bld) 6.8 % Normal 1.7-12.0 [facility] Comment on above: Performed By: #### C BC #### [facility] [address] [place] [address] Dr. Tere Soto NEUT # 2.3 103/ul Normal 1.4-6.5 [facility] Comment on above: Performed By: #### C BC #### [facility] [address] [place] [address] Dr. Tere Soto Neutrophils/100 WBC (Bld) 46.9 % Normal 43.0-75.0 [facility] Comment on above: Performed By: #### C BC #### [facility] [address] [place] [address] Dr. Tere Soto Platelet mean volume (Bld) [Entitic vol] 11.3 fL Normal 9.5-13.5 [facility] Comment on above: Performed By: #### C BC #### [facility] [address] [place] [address] Dr. Tere Soto PLT 183 103/ul Normal 150-[address] [facility] Comment on above: Performed By: #### C BC #### [facility] [address] [place] [address] Dr. Tere Soto RBC 4.58 106/ul Normal 4.20-5.40 [facility] Comment on above: Performed By: #### C BC #### [facility] [address] [place] [address] Dr. Tere Soto WBC 4.8 103/ul Normal 4.0-11.0 [facility] Comment on above: Performed By: #### C BC #### [facility] [address] [place] [address] Dr. Tere Soto Covid-19 PCR ([facility])on 12-01 SARS-CoV-2 (COVID-19) RNA AHMET+probe Ql (Unsp spec) Not detected Normal NOT DETECTED [facility] Comment on above: Result Comment: This test is not yet approved or cleared by the [place] FDA. When there are no FDA-approved or cleared tests available, and other criteria are met, FDA can make tests available under an emergency access mechanism called an Emergency Use Authorization (EUA). The EUA for this test is supported by the Assistant Professor Of Nursing of Health and Human Service's (HHS's) declaration [...] SARS-CoV-2. Performed By: #### C VDTB #### [facility] [address] [place] [address] Dr. Tere Soto PROF CHEM 8 (BAS METB)on Anion gap [Moles/Vol] 13.6 mmol/L Normal [facility] Comment on above: Performed By: #### B MP #### [facility] [address] [place] [address] Dr. Tere Soto Calcium [Mass/Vol] 9.6 mg/dL Normal 8.5-10.1 [facility] Comment on above: Performed By: #### B MP #### [facility] [address] [place] [address] Dr. Tere Soto Chloride [Moles/Vol] 103 mmol/L Normal 98-107 [facility] Comment on above: Performed By: #### B MP #### [facility] [address] [place] [address] Dr. Tere Soto CO2 [Moles/Vol] 28.9 mmol/L Normal 21.0-32.0 [facility] Comment on above: Performed By: #### B MP #### [facility] [address] [place] [address] Dr. Tere Soto Creatinine [Mass/Vol] 1.25 mg/dL Critically high 0.55-1.02 [facility] Comment on above: Performed By: #### B MP #### [facility] [address] [place] [address] Dr. Tere Soto EGFR-AF TUNISIAN 53 mL/min/1.73m2 Critically low >=60 [facility] Comment on above: Performed By: #### B MP #### [facility] [address] [place] [address] Dr. Tere Soto EGFR-NON AF TUNISIAN 43 mL/min/1.73m2 Critically low >=60 [facility] Comment on above: Performed By: #### B MP #### [facility] [address] [place] [address] Dr. Tere Soto Glucose [Mass/Vol] 121 mg/dL Critically high 74-106 [facility] Comment on above: Performed By: #### B MP #### [facility] [address] [address] [address] Tere Soto Potassium [Moles/Vol] 4.5 mmol/L Normal 3.5-5.1 [facility] Comment on above: Performed By: #### B MP #### [facility] [address] [address] [address] Tere Soto Sodium [Moles/Vol] 141 mmol/L Normal 136-145 [facility] Comment on above: Performed By: #### B MP #### [facility] [address] [address] [address] Tere Soto Urea nitrogen [Mass/Vol] 43.0 mg/dL Critically high 7.0-18.0 [facility] Comment on above: Performed By: #### B MP #### [facility] [address] [address] [address] Tere Soto Urea nitrogen/Creatinine [Mass ratio] 34.4 mg/mg Normal [facility] Comment on above: Performed By: #### B MP #### [facility] [address] [address] [address] Tere Soto PROTIMEon 12-23-2022 INR Coag (PPP) [Relative time] {INR} Normal [facility] Comment on above: Performed By: #### P T, PTT ####[facility] [id number] [address]Dr. Tere Soto INR GUIDELINES SEE BELOW Normal [facility] Comment on above: Result Comment: RUBEN RED INR: 2.0 - 3.0 CONDITIONS NOT LISTED BELOW 2.5 - 3.5 FOR PROSTHETIC HEART VALVE REPLACEMENT 2.5 - 3.5 RECURRENT THROMBOSIS Performed By: #### P T, PTT ####[facility] [id number] [id number]. Tere Soto PT Coag (PPP) [Time] 9.8 s Normal 9.0-11.6 [facility] Comment on above: Performed By: #### P T, PTT ####[facility] [id number] [place], [place] [address]QyDerek Soto PTTon 12-23-2022 aPTT Coag (Bld) [Time] 26.5 s Normal 22.3-36.[address] [facility] Comment on above: Performed By: #### P T, PTT ####[facility] [id number] [place], [place] [address] FOOT LT WO CONon 11-26-20 [...] BRODERICK FLOR Date: 2022-11-26 16:36 Normal [facility] XR ANKLE LAURA MIN 3 VIEWSon [...] by: BLANKA OLGUIN Date: 2022-11-13 06:32 Normal [address] 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) Orders CAD (coronary artery [...] Aminotransferase, Serum; Status:Active - Retrospective Authorization; Requested for:[id number] 09:18AM; AST; Status:Active - Retrospective Authorization; Requested for:10Feb2023 09:18AM; Lipid Panel; Status:Active - Retrospective Authorization; Requested for:10Feb2023 09:18AM; Class 2 obesity with body mass index (BMI) of 36.0 to 36.9 in adult Healthy Weight Tips; Status:Complete - Retrospective Authorization; Done: [id number] Some eating tips that can help you lose weight.; Status:Complete - Retrospective Authorization; Done: [id number] SocHx: Never a smoker Tobacco Use Screening; Status:Complete; Done: [id number] Patient Instructions Please bring all medicines, vitamins, [...] Since her last visit she has developed Jhgsrum-Mijxx-Cvxuz joint in the left foot and is [...] machine patient has been compliant with it. 7?Towzcbx-Mwilj-Cutsg joint in the left ankle and need [...] Methicillin resistant Staph aureus not isolated Normal [facility] Hgb A1Con 10-08-2022 HbA1c (Bld) [Mass fraction] 7.1 % High 4.0-5.6 [facility] Sedimentation Rateon Sedimentation Rate 44 mm/Hr High 0-20 [facility] C-Reactive Proteinon 022 C-Reactive Protein 0.4 mg/dL Normal 0.0-0.4 [facility] CBC With Platelet and Differ entialon 10-07-2022 Abs Imm Granulocytes 0.01 E9/L Normal [facility] Absolute Basophils 0.05 E9/L Normal 0.00-0.20 [facility] Absolute Eosinophils 0.15 E9/L Normal 0.05-0.50 [facility] Absolute Lymphocytes 2.20 E9/L Normal 1.50-4.00 [facility] Absolute Monocytes 0.35 E9/L Normal 0.10-0.95 [facility] Absolute Neutrophils 1.88 E9/L Normal 1.80-7.30 [facility] Basophils/100 WBC (Bld) 1.1 % Normal 0.0-2.0 [facility] Eosinophils/100 WBC (Bld) 3.2 % Normal 0.0-6.0 [facility] Hematocrit (Bld) [Volume fraction] 36.9 % Normal 34.0-48.0 [facility] Hemoglobin (Bld) [Mass/Vol] 12.4 g/dL Normal 11.5-15.5 [facility] Imm Granulocytes 0.2 % Normal 0.0-5.0 [facility] Lymphocytes/100 WBC (Bld) 47.4 % High 20.0-42.0 [facility] MCH (RBC) [Entitic mass] 29.7 pg Normal 26.0-35.0 [facility] MCHC 33.6 % Normal 32.0-34.5 [facility] MCV (RBC) [Entitic vol] 88.3 fL Normal 80.0-99.9 [facility] Monocytes/100 WBC (Bld) 7.5 % Normal 2.0-12.0 [facility] Neutrophils/100 WBC (Bld) 40.6 % Low 43.0-80.0 [facility] Platelet Count 208 E9/L Normal 130-450 [facility] Platelet mean volume (Bld) [Entitic vol] 11.7 fL Normal 7.0-12.0 [facility] RBC 4.18 E12/L Normal 3.50-5.50 [facility] RDW 13.3 fL Normal 11.5-15.0 [facility] WBC 4.6 E9/L Normal 4.5-11.5 [facility] Comprehensive Metabolic Pane alma 10-07-2022 Albumin [Mass/Vol] 4.3 g/dL Normal 3.5-5.2 [facility] ALP [Catalytic activity/Vol] 71 U/L Normal 35-104 [facility] ALT [Catalytic activity/Vol] 12 U/L Normal 0-32 [facility] Anion gap [Moles/Vol] 10 mmol/L Normal 7-16 [facility] AST [Catalytic activity/Vol] 19 U/L Normal 0-31 [facility] Bilirubin [Mass/Vol] 0.3 mg/dL Normal 0.0-1.2 [facility] Calcium [Mass/Vol] 10.3 mg/dL High 8.6-10.2 [facility] Chloride [Moles/Vol] 103 mmol/L Normal 98-107 [facility] CO2 [Moles/Vol] 27 mmol/L Normal 22-29 [facility] Creatinine [Mass/Vol] 1.2 mg/dL High 0.5-1.0 [facility] GFR/1.73 sq M.predicted among non-blacks MDRD (S/P/Bld) [Vol rate/Area] 51 mL/min/{1.73_m2} Normal >=60 [facility] Comment on above: Result Comment: Clifford [...] secretion. Glucose [Mass/Vol] 111 mg/dL High 74-99 [facility] Potassium [Moles/Vol] 4.6 mmol/L Normal 3.5-5.0 [facility] Protein [Mass/Vol] 7.3 g/dL Normal 6.4-8.3 [facility] Sodium [Moles/Vol] 140 mmol/L Normal 132-146 [facility] Urea nitrogen [Mass/Vol] 30 mg/dL High 6-23 [facility] Albumin [Mass/volume] in Ser um or PlasmaOrdered By: Charan Casey on 08-13-2022 Albumin [Mass/Vol] 3.9 g/dL 3.2-5.5 [facility] Automated erythrocytes count in urine sediment (number/area)Ordered By: Elpidio Whipple on 08-13-2022 RBC Auto (Urine sed) [#/Area] 0-1 [HPF] 0-4 [place] Automated leukocytes count i n urine sediment (number/area)Ordered By: Elpidio Whipple on 08-13-2022 WBC Auto (Urine sed) [#/Area] None seen [HPF] 0-4 [facility] Basophils Auto (Bld) [#/Vol] Ordered By: Charan Casey on 08-13-2022 Basophils (Bld) [#/Vol] 0.1 10*3/uL 0.0-0.2 [facility] Basophils/100 WBC Auto (Bld) Ordered By: Charan Casey on 08-13-2022 Basophils/100 WBC (Bld) 1.0 % . [facility] Bilirubin Test strip Ql (U)O rdered By: Elpidio Whipple on 08-13-2022 Bilirubin Ql (U) Negative Negative [facility] Cholesterol [Mass/volume] in Serum or PlasmaOrdered By: Charan Casey on 08-13-2022 Cholesterol [Mass/Vol] 170 mg/dL 140-200 [facility] Comment on above: Chol less than 200 m g/dl low riskChol 201-239 mg/dl borderline riskChol 240 mg/dl and greater high risk Cholesterol in LDL Calc [Mas s/Vol]Ordered By: Charan Casey on 08-13-2022 Cholesterol in LDL [Mass/Vol] 101 mg/dL 0-100 [facility] Comment on above: LDL ATP III CLASSIFI CATIONLDL less than 100 mg/dL OptimalLDL 100-129 mg/dL Near or above optimalLDL 130-159 mg/dL Borderline highLDL 160-189 mg/dL HighLDL greater than 189 mg/dL Very high Cholesterol in VLDL Calc [Ma ss/Vol]Ordered By: Charan Casey on 08-13-2022 Cholesterol in VLDL [Mass/Vol] 41 mg/dL [place] Color Auto (U)Ordered By: Ab rahul Whipple on 08-13-2022 Color (U) Dark yellow Yellow [facility] Creatinine [Mass/volume] in UrineOrdered By: Elpidio Whipple on 08-13-2022 Creatinine (U) [Mass/Vol] 127.6 mg/dL [facility] Comment on above: No reference range e stablished Creatinine and Glomerular fi ltration rate.predicted panel (S/P/Bld)Ordered By: Charan Casey on 08-13-2022 Creatinine [Mass/Vol] 1.41 mg/dL 0.44-1.03 [facility] Eosinophils Auto (Bld) [#/Vo l]Ordered By: Charan Casey on 08-13-2022 Eosinophils (Bld) [#/Vol] 0.1 10*3/uL 0.0-0.45 [facility] Eosinophils/100 WBC Auto (Bl d)Ordered By: Charan Casey on 08-13-2022 Eosinophils/100 WBC (Bld) 1.7 % . [facility] Erythrocyte distribution wid th Auto (RBC) [Ratio]Ordered By: Charan Casey on 08-13-2022 Erythrocyte distribution width (RBC) [Ratio] 13.1 % 11.9-15.3 [facility] Estimated glomerular filtrat ion rate (GFR) non- AmericanOrdered By: Charan Casey on 08-13-2022 GFR/1.73 sq M.predicted among non-blacks MDRD (S/P/Bld) [Vol rate/Area] 38 mL/Min [facility] Globulin Calc (S) [Mass/Vol] Ordered By: Charan Casey on 08-13-2022 Globulin (S) [Mass/Vol] 3.1 g/dL F [facility] Hematocrit Auto (Bld) [Volum e fraction]Ordered By: Charan Casey on 08-13-2022 Hematocrit (Bld) [Volume fraction] 38.0 % 34.0-46.4 [place] Hemoglobin [Mass/volume] in BloodOrdered By: Charan Casey on 08-13-2022 Hemoglobin (Bld) [Mass/Vol] 12.6 g/dL 11.8-15.4 [place] Ketones Auto test strip (U) [Mass/Vol]Ordered By: Elpidio Whipple on 08-13-2022 Ketones (U) [Mass/Vol] Negative Negative Fi [facility] - Chemistry and C hemistry - challengeOrdered By: Elpidio Whipple on 08-13-2022 Magnesium [Mass/Vol] 1.9 mg/dL 1.6-2.6 [facility] - Hematology and Cell countsOrdered By: Charan Casey on 08-13-2022 Nucleated RBC/100 WBC (Bld) [Ratio] 0.0 % 0-0.5 [place] [facility] - UrinalysisOrder ed By: Elpidio Whipple on 08-13-2022 Hyaline casts LM Ql (Urine sed) 0-8 [LPF] 0-8 [facility] Leukocytes [#/volume] in Blo od by Automated countOrdered By: Charan Casey on 08-13-2022 WBC (Bld) [#/Vol] 8.2 10*3/uL 4.5-11.0 [facility] Lymphocytes Auto (Bld) [#/Vo l]Ordered By: Charan Casey on 08-13-2022 Lymphocytes (Bld) [#/Vol] 2.8 10*3/uL 1.00-4.8 [place] Lymphocytes/100 WBC Auto (Bl d)Ordered By: Charan Casey on 08-13-2022 Lymphocytes/100 WBC (Bld) 34.1 % . [place] MCH Auto (RBC) [Entitic mass ]Ordered By: Charan Casey on 08-13-2022 MCH (RBC) [Entitic mass] 28.5 pg 24.7-34.3 [place] MCHC Auto (RBC) [Mass/Vol]Or dered By: Charan Casey on 08-13-2022 MCHC (RBC) [Mass/Vol] 33.2 g/dL 32.0-35.0 [facility] MCV Auto (RBC) [Entitic vol] Ordered By: Charan Casey on 08-13-2022 MCV (RBC) [Entitic vol] 85.8 fL 80-100 F [facility] Monocytes Auto (Bld) [#/Vol] Ordered By: Charan Casey on 08-13-2022 Monocytes (Bld) [#/Vol] 0.5 10*3/uL 0.0-0.8 [facility] Monocytes/100 WBC Auto (Bld) Ordered By: Charan Casey on 08-13-2022 Monocytes/100 WBC (Bld) 6.4 % . [facility] Neutrophils Auto (Bld) [#/Vo l]Ordered By: Charan Casey on 08-13-2022 Neutrophils (Bld) [#/Vol] 4.7 10*3/uL 1.8-7.7 [place] Neutrophils/100 WBC Auto (Bl d)Ordered By: Charan Casey on 08-13-2022 Neutrophils/100 WBC (Bld) 56.8 % . [facility] Nitrite Test strip Ql (U)Ord ered By: Elpidio Whipple on 08-13-2022 Nitrite Ql (U) Negative Negative [facility] No Panel InformationOrdered By: Charan Casey on 08-13-2022 25-Hydroxy Vitamin D Total 37.8 ng/mL 30-100 [place] Comment on above: VITAMIN D STATUS 25( [place])VITAMIN D RANGE (ng/mL) Deficient <20 Insufficient 20 to <30Sufficient 30 to 100Reference: Nayeli MF,Hannah NC, Jose GILBERT, et al. Evaluation,treatment, and prevention of vitamin D deficiency; an Endocrine Society clinical practice guideline. JCEM. 2010; 96(7):1911-30. Estimated GFR () 46 mL/Min [place] Comment on above: GFR estimated refere nce range: According to KDOQI guidelines, <60 ml/min/1.73m2 is sufficient to diagnose a patient with chronic kidney disease. Pharmacy Creatinine Clearance (Chem N/A [facility] Platelet mean volume Auto (B ld) [Entitic vol]Ordered By: Charan Casey on 08-13-2022 Platelet mean volume (Bld) [Entitic vol] 9.2 fL 6.3-10.7 [facility] Platelets Auto (Bld) [#/Vol] Ordered By: Charan Casey on 08-13-2022 Platelets (Bld) [#/Vol] 272 10*3/uL 150-450 [facility] Protein Auto test strip (U) [Mass/Vol]Ordered By: Elpidio Whipple on 08-13-2022 Protein (U) [Mass/Vol] Negative Negative Fi [facility] Protein [Mass/volume] in Ser um or PlasmaOrdered By: Charan Casey on 08-13-2022 Protein [Mass/Vol] 7.0 g/dL 6.1-7.9 [facility] Protein [Mass/volume] in Uri neOrdered By: Elpidio Whipple on 08-13-2022 Protein (U) [Mass/Vol] 7 mg/dL 0-9 [facility] RBC Auto (Bld) [#/Vol]Ordere d By: Charan Casey on 08-13-2022 RBC (Bld) [#/Vol] 4.43 10*6/uL 3.60-5.00 [facility] Serum or plasma alanine stanton otransferase measurement without P-5'-P (enzymatic activiOrdered By: Charan Casey on 08-13-2022 ALT No additional P-5'-P [Catalytic activity/Vol] 12 U/L 1060 [place] Serum or plasma albumin/glob ulin mass ratioOrdered By: Charan Casey on 08-13-2022 Albumin/Globulin [Mass ratio] 1.3 {ratio} [facility] Serum or plasma alkaline do sphatase measurement (enzymatic activity/volume)Ordered By: Charan Casey on 08-13-2022 ALP [Catalytic activity/Vol] 79 U/L 32-92 [facility] Serum or plasma anion gap de terminationOrdered By: Charan Casey on 08-13-2022 Anion gap [Moles/Vol] 15.4 mmol/L 6.0-15.0 [facility] Serum or plasma aspartate am inotransferase measurement (enzymatic activity/volume)Ordered By: Charan Casey on 08-13-2022 AST [Catalytic activity/Vol] 22 U/L 10-42 [facility] Serum or plasma calcium gautam urement (mass/volume)Ordered By: Charan Casey on 08-13-2022 Calcium [Mass/Vol] 10.1 mg/dL 8.2-10.2 [facility] Serum or plasma chloride malika surement (moles/volume)Ordered By: Charan Casey on 08-13-2022 Chloride [Moles/Vol] 102 mmol/L 95-114 [facility] Serum or plasma glucose gautam urement (mass/volume)Ordered By: Charan Casey on 08-13-2022 Glucose [Mass/Vol] 114 mg/dL 70-100 [facility] Comment on above: ADA recommended refe rence rangeRandom Glucose Reference Range is dependent on time and content of last meal. Glucose of more than 200 mg/dL in a nonstressed, ambulatory subject supports the diagnosis of Diabetes Mellitus. Serum or plasma high density lipoprotein (HDL) cholesterol measurementOrdered By: Charan Casey on 08-13-2022 Cholesterol in HDL [Mass/Vol] 28 mg/dL 35-85 [facility] Comment on above: HDL CHOL ATP-III CLA SSIFICATION Cardiovascular RiskHDL > or equal to 60 mg/dL LOWHDL < 40 mg/dL HIGH Serum or plasma intact parat hyroid hormone measurement (mass/volume)Ordered By: Elpidio Whipple on 08-13-2022 Parathyrin.intact [Mass/Vol] 87.0 pg/mL 12 [facility] Serum or plasma potassium me asurement (moles/volume)Ordered By: Charan Casey on 08-13-2022 Potassium [Moles/Vol] 4.9 mmol/L 3.5-5.1 [facility] Serum or plasma sodium measu rement (moles/volume)Ordered By: Charan Casey on 08-13-2022 Sodium [Moles/Vol] 138 mmol/L 136-146 [facility] Serum or plasma total biliru bin measurement (mass/volume)Ordered By: Charan Casey on 08-13-2022 Bilirubin [Mass/Vol] 0.4 mg/dL 0.3-1.2 [facility] Serum or plasma total carbon dioxide measurement (moles/volume)Ordered By: Charan Casey on 08-13-2022 CO2 [Moles/Vol] 25.5 mmol/L 22.0-30.0 [facility] Serum or plasma total choles terol/high density lipoprotein (HDL) cholesterol mass ratOrdered By: Charan Casey on 08-13-2022 Cholesterol.total/Mary sterol in HDL [Mass ratio] 6.1 {ratio} <5.0 [place] Serum or plasma urea nitroge n measurement (mass/volume)Ordered By: Charan Casey on 08-13-2022 Urea nitrogen [Mass/Vol] 45 mg/dL 08-22 [place] Serum or plasma uric acid me asurement (mass/volume)Ordered By: Charan Casey on 08-13-2022 Urate [Mass/Vol] 7.9 mg/dL 2.6-7.2 [facility] Specific gravity Auto test s trip (U) [Rel density]Ordered By: Elpidio Whipple on 08-13-2022 Specific gravity (U) [Rel density] 1.020 1.001-1.030 [place] Squamous epithelial cells de tection in urine sediment by light microscopyOrdered By: Elpidio Whipple on 08-13-2022 Epithelial cells.squamous LM Ql (Urine sed) 0-1 [HPF] 0-2 [place] TSH DL <= 0.005 mIU/L QnOrde red By: Charan Casey on 08-13-2022 TSH Qn 1.91 m[IU]/L 0.45-5.33 [place] Triglyceride [Mass/volume] i n Serum or PlasmaOrdered By: Charan Casey on 08-13-2022 Triglyceride [Mass/Vol] 207 mg/dL 35-149 F [facility] Comment on above: TRIG ATP III CLASSIF ICATIONTRIG less than 150 mg/dL NormalTRIG 150-199 mg/dL Borderline highTRIG 200-500 mg/dL High TRIG greater than 500 mg/dL Very highStandard traceable to the Center for Disease Conrtrol and Prevention (CDC) test method. Urine bacteria detection by automated methodOrdered By: Elpidio Whipple on 08-13-2022 Bacteria Auto Ql (U) None seen None Seen [facility] Urine clarity by refractomet ry automatedOrdered By: Elpidio Whipple on 08-13-2022 Clarity Refractometry automated (U) Clear Clear [place] Urine glucose measurement by automated test strip (mass/volume)Ordered By: Elpidio Whipple on 08-13-2022 Glucose Auto test strip (U) [Mass/Vol] Normal mg/dL Normal [facility] Urine hemoglobin detection b y automated test stripOrdered By: Elpidio Whipple on 08-13-2022 Hemoglobin Auto test strip Ql (U) Negative Negative [facility] Urine leukocyte esterase det ection by automated test stripOrdered By: Elpidio Whipple on 08-13-2022 Leukocyte esterase Auto test strip Ql (U) Negative Negative [facility] Urine protein/creatinine rat ioOrdered By: Elpidio Whipple on 08-13-2022 Protein/Creatinine (U) [Ratio] 55 mg/g{Cre} 0-200 [place] Urobilinogen Auto test strip (U) [Mass/Vol]Ordered By: Elpidio Whipple on 08-13-2022 Urobilinogen (U) [Mass/Vol] Normal mg/dL Normal [place] pH Auto test strip (U)Ordere d By: Elpidio Whipple on 08-13-2022 pH (U) 5.0 [pH] 5.0-9.0 [place] Tobacco Screening.on 022 Adult depression screening assessment No [facility] [employer] 250 DO Work Phone: Fall risk assessment a) No falls within the last year [facility] [employer] DO Work Phone: Tobacco use status CPHS b) No M [facility] [employer] 250 DO Work Phone: Laboratory - Chemistry and C hemistry - challengeon 03-25-2022 Cholesterol [Mass/Vol] 218\S\218 above hig h threshold 140-200 [facility] [employer] 250 DO Work Phone: Comment on above: Chol less than 200 m g/dl low risk Chol 201-239 mg/dl borderline risk Chol 240 mg/dl and greater high risk Cholesterol in LDL [Mass/Vol] 145\S\145 above high threshold 0-100 [facility] [employer] 250 DO Work Phone: Comment on above: LDL ATP III CLASSIFI CATION LDL less than 100 mg/dL Optimal LDL 100-129 mg/dL Near or above optimal LDL 130-159 mg/dL Borderline high LDL 160-189 mg/dL High LDL greater than 189 mg/dL Very high Laboratory - Microbiology an d Antimicrobial susceptibilityon 03-25-2022 SARS-CoV-2 (COVID-19) RNA AHMET+probe Ql (Unsp spec) [facility] [employer] 250 DO Work Phone: No Panel Informationon 03-25 40.2\S\40.2 Normal . [facility] [employer] 250 DO Work Phone: 9.2\S\9.2 Normal 6.3-10.7 [employer] 250 DO Work Phone: 200\S\200 Normal 150-450 [facility] [employer] 250 DO Work Phone: 13.5\S\13.5 Normal 11.9-15.3 [facility] [employer] 250 DO Work Phone: 34.0\S\34.0 Normal 32.0-35.0 [facility] [employer] 250 DO Work Phone: 29.0\S\29.0 Normal 24.7-34.3 [facility] 250 DO Work Phone: 2.0\S\2.0 Normal 1.8-7.7 [facility] 250 DO Work Phone: 0.1\S\0.1 Normal 0.0-0.45 [facility] 250 DO Work Phone: 0.6\S\0.6 Normal . [facility] 250 DO Work Phone: 2.9\S\2.9 Normal . [facility] 250 DO Work Phone: 7.1\S\7.1 Normal . [facility] 250 DO Work Phone: 49.2\S\49.2 Normal . [facility] 250 DO Work Phone: 0.0\S\0.0 Normal 0.0-0.2 [facility] 250 DO Work Phone: Comment on above: PERFORMED BY:[facility] [place], [place] [id number] MEDICAL DIRECTORJE SHELLEY M.D. 0.4\S\0.4 Normal 0.0-0.8 [facility] 250 DO Work Phone: 2.5\S\2.5 Normal 1.00-4.8 [facility] 250 DO Work Phone: 85.5\S\85.5 Normal 80-100 [facility] 250 DO Work Phone: 39.0\S\39.0 Normal 34.0-46.4 [facility] 250 DO Work Phone: 13.3\S\13.3 Normal 11.8-15.4 [facility] 250 DO Work Phone: 4.56\S\4.56 Normal 3.60-5.00 [facility] 250 DO Work Phone: 5.1\S\5.1 Normal 3.8-11.6 [facility] 250 DO Work Phone: 33.3\S\33.3 Normal 25.1-36.5 [facility] 250 DO Work Phone: Comment on above: PERFORMED BY:[facility] [place], [place] [id number] MEDICAL DIRECTORJE SHELLEY M.D. 1.0\S\1.0 Normal [facility] DO Work Phone: Comment on above: INR [...] valves: 3 - 4.5 10.9\S\10.9 Normal 9.0-12.9 [place] [address] DO Work Phone: 26.6\S\26.6 Normal 22.0-30.0 [place] [address] DO Work Phone: 104\S\104 Normal 95-114 [place] [address] DO Work Phone: 4.0\S\4.0 Normal 3.5-5.1 [place] [address] DO Work Phone: 140\S\140 Normal 136-146 [facility] 250 DO Work Phone: 18\S\18 Normal 9-23 [facility] 250 DO Work Phone: 54\S\54 Normal [facility] 250 DO Work Phone: Comment on above: GFR estimated refere nce range: According to KDOQI guidelines, <60 ml/min/1.73m2 is sufficient to diagnose a patient with chronic kidney disease. 45\S\45 Normal [facility] 250 DO Work Phone: 1.22\S\1.22 above high threshold 0.44-1.03 [facility] 250 DO Work Phone: 6.4\S\6.4 Normal <5.0 [facility] 250 DO Work Phone: Comment on above: PERFORMED BY:[facility] [place], [place] [id number] MEDICAL DIRECTORJE SHELLEY M.D. 39\S\39 Normal [facility] 250 DO Work Phone: 197\S\197 above high threshold 35-149 [facility] 250 DO Work Phone: Comment on above: TRIG ATP III CLASSIF ICATION TRIG less than 150 mg/dL Normal TRIG 150-199 mg/dL Borderline high TRIG 200-500 mg/dL High TRIG greater than 500 mg/dL Very high Standard traceable to the Center for Disease Conrtrol and Prevention (CDC) test method. 34\S\34 below low threshold 35-85 [facility] 250 DO Work Phone: Comment on above: HDL CHOL ATP-III CLA SSIFICATION Cardiovascular Risk HDL > or equal to 60 mg/dL LOW HDL < 40 mg/dL HIGH Negative Normal Negative [place] [address] DO Work Phone: Comment on above: This is a duplicate Ashley SARS Antigen (PRISCILA) result to be used for statistical tracking purpose only.PERFORMED BY:[facility] [place], [place] [id number] MEDICAL DIRECTORJE SHELLEY M.D. CT Angio Coronary Arteries w ith Heart Flowon 03-11-2022 CT Angio Coronary Arteries with Heart Flow Normal [place] [address] DO Work Phone: CTA CORONARY ART WITH [...] R07.9: Chest pain. COMPARISON: None. ACCESSION NUMBER(S): [id number] ORDERING CLINICIAN: ROSALINDA TORRES TECHNIQUE: Using multi-detector [...] VALVE: The (more content not included)... Normal [facility] Tobacco Screening.on 022 Adult depression screening assessment No [facility] 250 DO Work Phone: Fall risk assessment a) No falls within the last year [facility] 250 DO Work Phone: Tobacco use status CPHS b) No M [facility] 250 DO Work Phone: SURGICAL PATHOLOGYon SURGICAL PATHOLOGY Specimen #: [id number] Physician: REUBEN CRAVEN M.D. FINAL DIAGNOSIS1. 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 Skin, left upper arm, shave biopsy ([id number]; 07/20/2018) - Intradermal nevus, neurotized (see comment).AF/CE/dss [...] for MART-1 and S100 [facility]. These stains highlight a [...] consultation. Please call theDermatopathology Consultation Service at [phone] with questions or ifadditional follow-up information becomes available regarding this patient.This case was reviewed in conjunction with the Dermatopathology Fellow, Dr.Carly Marija MD.Donald Zavaleta M.D. PhD(Electronic Signature) SPECIME N SUBMITTEDA: 11 SLIDES ([id number]) CLINICAL DATANone provided. of Report: 07/26/2018Date of Procedure: 07/23/2018Date of Receipt: 07/23/2018Submitted by: REUBEN CRAVEN M.D.Location: [id number] interpretation performed at [facility], [address] [place] [address]. Normal [facility] Comment on above: Performed By: #### S ####See report for performing lab information. Vital Signs Date Time Vital Sign Value Performing Clinician Facility 07-27-2025 08:13-0400 Body height 167.6 cm Shaina Petznick DO Work Phone: [facility] 07-27-2025 08:13-0400 Body temperature 97.5 [degF] Shaina Petznick DO Work Phone: [facility] 07-27-2025 08:13-0400 Diastolic blood pressure 62 mm[Hg] Shaina Petznick DO Work Phone: [facility] 07-27-2025 08:13-0400 Heart rate 65 /min Shaina Petznick DO Work Phone: [facility] 07-27-2025 08:13-0400 SaO2% (BldA) [Mass fraction] 98 % Shaina Petznick DO Work Phone: [facility] 07-27-2025 08:13-0400 Systolic blood pressure 122 mm[Hg] Shaina Petznick DO Work Phone: [facility] 07-12-2025 08:20-0400 Body temperature 97.8 [degF] Charan Casey DO Work Phone: [place] 07-12-2025 08:20-0400 Diastolic blood pressure 60 mm[Hg] Charan Casey DO Work Phone: [place] 07-12-2025 08:20-0400 Heart rate 70 /min Charan Masseys DO Work Phone: [place] 07-12-2025 08:20-0400 Respiratory rate 16 /min Charan Masseys DO Work Phone: [place] 07-12-2025 08:20-0400 SaO2% (BldA) [Mass fraction] 97 % Charan Casey DO Work Phone: [facility] 07-12-2025 08:20-0400 Systolic blood pressure 116 mm[Hg] Charan Masseys DO Work Phone: [place] 05-15-2025 10:29-0400 Body height 167.6 cm Shaina Petznick DO Work Phone: [facility] 05-15-2025 10:29-0400 Body mass index (BMI) [Ratio] 35.86 kg/m2 Shaina Petznick DO Work Phone: [facility] 05-15-2025 10:29-0400 Body temperature 97.2 [degF] Shaina Petznick DO Work Phone: [facility] 05-15-2025 10:29-0400 Body weight 100.79 kg Shaina Petznick DO Work Phone: [facility] 05-15-2025 10:29-0400 Diastolic blood pressure 76 mm[Hg] Shaina Petznick DO Work Phone: [facility] 05-15-2025 10:29-0400 Heart rate 67 /min Shaina Petznick DO Work Phone: [facility] 05-15-2025 10:29-0400 SaO2% (BldA) [Mass fraction] 98 % Shaina Petznick DO Work Phone: [facility] 05-15-2025 10:29-0400 Systolic blood pressure 110 mm[Hg] Shaina Petznick DO Work Phone: [facility] 03-06-2025 08:09-0400 Body height 170.18 cm Charan Masseys DO Work Phone: [place] 03-06-2025 08:09-0400 Body mass index (BMI) [Ratio] 35.4 kg/m2 Charan Masseys DO Work Phone: [place] 03-06-2025 08:09-0400 Body weight 102.51 kg Charan Masseys DO Work Phone: [place] 03-06-2025 08:09-0400 Respiratory rate 16 /min Charan Masseys DO Work Phone: [place] 03-06-2025 08:09-0400 SaO2% (BldA) [Mass fraction] 98 % Charan Masseys DO Work Phone: [place] 02-16-2025 09:35-0400 Body height 170.18 cm Charan Masseys DO Work Phone: [place] 02-16-2025 09:35-0400 Body mass index (BMI) [Ratio] 36.5 kg/m2 Charan Masseys DO Work Phone: [place] 02-16-2025 09:35-0400 Body weight 105.68 kg Charan Masseys DO Work Phone: [place] 01-09-2025 10:01-0500 Body height 170.18 cm Charan Masseys DO Work Phone: [place] 01-09-2025 10:01-0500 Body mass index (BMI) [Ratio] 36.5 kg/m2 Charan Masseys DO Work Phone: [facility] 01-09-2025 10:01-0500 Body weight 105.68 kg Charan Masseys DO Work Phone: [place] 01-09-2025 10:01-0500 Diastolic blood pressure 84 mm[Hg] Charanheather Masseys DO Work Phone: [place] 01-09-2025 10:01-0500 Heart rate 69 /min Charan Masseys DO Work Phone: [place] 01-09-2025 10:01-0500 Respiratory rate 16 /min Charan Masseys DO Work Phone: [facility] 01-09-2025 10:01-0500 SaO2% (BldA) [Mass fraction] 98 % Charan Masseys DO Work Phone: [place] 01-09-2025 10:01-0500 Systolic blood pressure 124 mm[Hg] Charan Masseys DO Work Phone: [place] 12-09-2024 10:39-0500 Body height 170.18 cm Charan Masseys DO Work Phone: [place] 12-09-2024 10:39-0500 Body mass index (BMI) [Ratio] 36.1 kg/m2 Charan Masseys DO Work Phone: [place] 12-09-2024 10:39-0500 Body temperature 98.4 [degF] Charan Masseys DO Work Phone: [place] 12-09-2024 10:39-0500 Body weight 104.77 kg Charan Masseys DO Work Phone: [place] 12-09-2024 10:39-0500 Diastolic blood pressure 66 mm[Hg] Charan Masseys DO Work Phone: [place] 12-09-2024 10:39-0500 Heart rate 78 /min Charan Brysons DO Work Phone: [place] 12-09-2024 10:39-0500 Respiratory rate 16 /min Charan Masseys DO Work Phone: [place] 12-09-2024 10:39-0500 SaO2% (BldA) [Mass fraction] 97 % Charan Brysons DO Work Phone: [place] 12-09-2024 10:39-0500 Systolic blood pressure 130 mm[Hg] Charan Masseys DO Work Phone: [place] 2024 09:30-0500 Diastolic blood pressure 83 mm[Hg] Charan Masseys DO Work Phone: [place] 2024 09:30-0500 Heart rate 65 /min Charan Masseys DO Work Phone: [place] 2024 09:30-0500 Respiratory rate 16 /min Charan Masseys DO Work Phone: [place] 2024 09:30-0500 SaO2% (BldA) [Mass fraction] 99 % Charan Masseys DO Work Phone: [place] 2024 09:30-0500 Systolic blood pressure 164 mm[Hg] Chaarn Masseys DO Work Phone: [place] 2024 08:48-0500 Inhaled oxygen flow rate 3 L/min Charan Masseys DO Work Phone: [place] 2024 07:38-0500 Body height 170.18 cm Charan Masseys DO Work Phone: [place] 2024 07:38-0500 Body weight 108.86 kg Charan Masseys DO Work Phone: [place] 10-19-2024 08:13-0500 Body weight 109.88 kg Charan Masseys DO Work Phone: [place] 10-17-2024 13:12-0500 Body height 167.6 cm Shaina Petfelipeick DO Work Phone: [facility] 10-17-2024 13:12-0500 Body mass index (BMI) [Ratio] 39.06 kg/m2 Shaina Petznick DO Work Phone: [facility] 10-17-2024 13:12-0500 Body temperature 97.3 [degF] Shaina Petznick DO Work Phone: [facility] 10-17-2024 13:12-0500 Body weight 109.77 kg Shaina Petznick DO Work Phone: [facility] 10-17-2024 13:12-0500 Diastolic blood pressure 68 mm[Hg] Shaina Petznick DO Work Phone: [facility] 10-17-2024 13:12-0500 Heart rate 78 /min Shaina Petznick DO Work Phone: [facility] 10-17-2024 13:12-0500 SaO2% (BldA) [Mass fraction] 96 % Shaina Petznick DO Work Phone: [facility] 10-17-2024 13:12-0500 Systolic blood pressure 128 mm[Hg] Shaina Petznick DO Work Phone: [facility] 09-20-2024 10:28-0400 Diastolic blood pressure 76 mm[Hg] DO Charan Masseys Work Phone: [place] 09-20-2024 10:28-0400 Heart rate 68 /min DO Charan Masseys Work Phone: [place] 09-20-2024 10:28-0400 Respiratory rate 16 /min DO Charan Masseys Work Phone: [place] 09-20-2024 10:28-0400 SaO2% (BldA) [Mass fraction] 95 % DO Charan Brysons Work Phone: [place] 09-20-2024 10:28-0400 Systolic blood pressure 157 mm[Hg] DO Charan Kuns Work Phone: [place] 09-20-2024 09:50-0400 Inhaled oxygen flow rate 3 L/min DO Charan Brysons Work Phone: [place] 09-20-2024 08:38-0400 Body height 170.18 cm DO Charan Casey Work Phone: [place] 09-20-2024 08:38-0400 Body weight 107.95 kg DO Charanheather Casey Work Phone: [place] 08-25-2024 08:35-0400 Body height 170.2 cm Rosalinda Torres MD Work Phone: [facility] 08-25-2024 08:35-0400 Body mass index (BMI) [Ratio] 37.75 kg/m2 Rosalinda Torres MD Work Phone: [facility] 08-25-2024 08:35-0400 Body weight 109.32 kg Rosalinda Torres MD Work Phone: [facility] 08-25-2024 08:35-0400 Diastolic blood pressure 80 mm[Hg] Rosalinda Torres MD Work Phone: [facility] 08-25-2024 08:35-0400 Heart rate 80 /min Rosalinda Torres MD Work Phone: [facility] 08-25-2024 08:35-0400 Systolic blood pressure 130 mm[Hg] Rosalinda Torres MD Work Phone: [facility] 06-08-2024 15:44-0400 Body height 170.18 cm DO Charan Casey Work Phone: [place] 06-08-2024 15:44-0400 Body mass index (BMI) [Ratio] 37 kg/m2 DO Charan Casey Work Phone: [place] 06-08-2024 15:44-0400 Body weight 107.5 kg DO Charan Casey Work Phone: [place] 06-08-2024 15:44-0400 Diastolic blood pressure 76 mm[Hg] DO Charan Casey Work Phone: [place] 06-08-2024 15:44-0400 Heart rate 95 /min DO Charan Brysons Work Phone: [place] 06-08-2024 15:44-0400 SaO2% (BldA) [Mass fraction] 96 % DO Charan Brysons Work Phone: [place] 06-08-2024 15:44-0400 Systolic blood pressure 151 mm[Hg] DO Charan Kuns Work Phone: [place] 05-31-2024 11:30-0400 Diastolic blood pressure 78 mm[Hg] DO Charan Kuns Work Phone: [place] 05-31-2024 11:30-0400 Heart rate 68 /min DO Charan Brysons Work Phone: [place] 05-31-2024 11:30-0400 Respiratory rate 16 /min DO Charan Masseys Work Phone: [place] 05-31-2024 11:30-0400 SaO2% (BldA) [Mass fraction] 98 % DO Charanheather Masseys Work Phone: [place] 05-31-2024 11:30-0400 Systolic blood pressure 152 mm[Hg] DO Charanheather Masseys Work Phone: [place] 05-31-2024 10:53-0400 Inhaled oxygen flow rate 3 L/min DO Charanheather Masseys Work Phone: [place] 05-31-2024 10:09-0400 Body height 170.18 cm DO Charan Brysons Work Phone: [place] 05-31-2024 10:09-0400 Body weight 108.86 kg DO Charan Kuns Work Phone: [place] 03-01-2024 09:31-0400 Body height 170.18 cm DO Charan Kuns Work Phone: [place] 03-01-2024 09:31-0400 Body mass index (BMI) [Ratio] 37.4 kg/m2 DO Charan Casey Work Phone: [place] 03-01-2024 09:31-0400 Body temperature 96.8 [degF] DO Charanheather Casey Work Phone: [place] 03-01-2024 09:31-0400 Body weight 108.4 kg DO Charanheather Casey Work Phone: [place] 03-01-2024 09:31-0400 Diastolic blood pressure 83 mm[Hg] DO Charan Casey Work Phone: [place] 03-01-2024 09:31-0400 Heart rate 88 /min DO Charan Casey Work Phone: [place] 03-01-2024 09:31-0400 Respiratory rate 16 /min DO Charan Casey Work Phone: [place] 03-01-2024 09:31-0400 SaO2% (BldA) [Mass fraction] 98 % DO Charan Casey Work Phone: [place] 03-01-2024 09:31-0400 Systolic blood pressure 146 mm[Hg] DO Charan Casey Work Phone: [place] 02-22-2024 14:26-0400 Body height 170.2 cm Rosalinda Torres MD Work Phone: [facility] 02-22-2024 14:26-0400 Body mass index (BMI) [Ratio] 37.12 kg/m2 Rosalinda Torres MD Work Phone: [facility] 02-22-2024 14:26-0400 Body weight 107.5 kg Rosalinda Torres MD Work Phone: [facility] 02-22-2024 14:26-0400 Diastolic blood pressure 60 mm[Hg] Rosalinda Torres MD Work Phone: [facility] 02-22-2024 14:26-0400 Heart rate 84 /min Rosalinda Torres MD Work Phone: [facility] 02-22-2024 14:26-0400 Systolic blood pressure 130 mm[Hg] Rosalinda Torres MD Work Phone: [facility] 12-30-2023 13:00-0500 Body height 170.18 cm Charan Casey Other [place] 12-30-2023 13:00-0500 Body mass index (BMI) [Ratio] 37.59 kg/m2 Charan Casey Other [employer] Other 12-30-2023 13:00-0500 Body temperature 98.3 [degF] Charan Casey Other [employer] Other 12-30-2023 13:00-0500 Body weight 108.86 kg Charan Casey Other [place] 12-30-2023 13:00-0500 Diastolic blood pressure 80 mm[Hg] Charan Casey Other [place] 12-30-2023 13:00-0500 Respiratory rate 18 /min Charan Casey Other [employer] Other 12-30-2023 13:00-0500 SaO2% (BldA) [Mass fraction] 96 % Charan Casey Other [employer] Other 12-30-2023 13:00-0500 Systolic blood pressure 150 mm[Hg] Charan Casey Other [place] 10-21-2023 12:45-0500 Body height 170.18 cm Blas Bellamy Other [employer] Other 10-21-2023 12:45-0500 Body mass index (BMI) [Ratio] 37.43 kg/m2 Blas Bellamy Other [employer] Other 10-21-2023 12:45-0500 Body temperature 97.6 [degF] Blas Bellamy Other [employer] Other 10-21-2023 12:45-0500 Body weight 108.41 kg Blas Bellamy Other [employer] Other 10-21-2023 12:45-0500 Diastolic blood pressure 90 mm[Hg] Blas Bellamy Other [employer] Other 10-21-2023 12:45-0500 Respiratory rate 18 /min Blas Bellamy Other [employer] Other 10-21-2023 12:45-0500 SaO2% (BldA) [Mass fraction] 96 % Blas Bellamy Other [employer] Other 10-21-2023 12:45-0500 Systolic blood pressure 143 mm[Hg] Blas Bellamy Other [employer] Other 10-06-2023 09:04-0500 Diastolic blood pressure 74 mm[Hg] DO Charan Masseys Work Phone: [place] 10-06-2023 09:04-0500 Heart rate 76 /min DO Charan Brysons Work Phone: [place] 10-06-2023 09:04-0500 Respiratory rate 16 /min DO Charan Kuns Work Phone: [place] 10-06-2023 09:04-0500 SaO2% (BldA) [Mass fraction] 96 % DO Charan Brysons Work Phone: [place] 10-06-2023 09:04-0500 Systolic blood pressure 159 mm[Hg] DO Charan Casey Work Phone: [place] 10-06-2023 07:01-0500 Body height 170.18 cm DO Charan Casey Work Phone: [place] 10-06-2023 07:01-0500 Body weight 106.59 kg DO Charan Casey Work Phone: [place] 09-15-2023 10:20-0400 Body height 170.18 cm Elpidio Sole Other [employer] Other 09-15-2023 10:20-0400 Body mass index (BMI) [Ratio] 37.46 kg/m2 Elpidio Sole Other [employer] Other 09-15-2023 10:20-0400 Body temperature 97.2 [degF] Elpidio Sole Other [employer] Other 09-15-2023 10:20-0400 Body weight 108.5 kg Elpidio Sole Other [employer] Other 09-15-2023 10:20-0400 Diastolic blood pressure 80 mm[Hg] Elpidio Sole Other [employer] Other 09-15-2023 10:20-0400 Respiratory rate 18 /min Elpidio Sole Other [employer] Other 09-15-2023 10:20-0400 SaO2% (BldA) [Mass fraction] 99 % Elpidio Sole Other [employer] Other 09-15-2023 10:20-0400 Systolic blood pressure 140 mm[Hg] Elpidiorohan Zarater Other [facility] [employer] Other 09-08-2023 09:00-0400 Diastolic blood pressure 88 mm[Hg] DO Charan Casey Work Phone: [place] 09-08-2023 09:00-0400 Heart rate 69 /min DO Charan Vrvanabryn Work Phone: [place] 09-08-2023 09:00-0400 Respiratory rate 16 /min DO Charan Casey Work Phone: [place] 09-08-2023 09:00-0400 SaO2% (BldA) [Mass fraction] 96 % DO Charan Casey Work Phone: [place] 09-08-2023 09:00-0400 Systolic blood pressure 146 mm[Hg] DO Charan Casey Work Phone: [place] 09-08-2023 08:17-0400 Inhaled oxygen flow rate 3 L/min DO Charan Casey Work Phone: [place] 09-08-2023 07:21-0400 Body height 170.18 cm DO Charan Casey Work Phone: [place] 09-08-2023 07:21-0400 Body weight 108.86 kg DO Charan Casey Work Phone: [place] 08-17-2023 09:30-0400 Body height 170.18 cm Blas Ortiz Other [employer] Other 08-17-2023 09:30-0400 Body mass index (BMI) [Ratio] 38.06 kg/m2 Blas Ortiz Other [employer] Other 08-17-2023 09:30-0400 Body weight 110.22 kg Blas Ortiz Other [employer] Other 08-11-2023 09:20-0400 Body height 170.18 cm Thierno Shena Other [employer] Other 08-11-2023 09:20-0400 Body mass index (BMI) [Ratio] 38.06 kg/m2 Thierno Chatterjee Other [employer] Other 08-11-2023 09:20-0400 Body weight 110.22 kg Thierno Chatterjee Other [employer] Other 08-11-2023 09:20-0400 Diastolic blood pressure 90 mm[Hg] Thierno Chatterjee Other [employer] Other 08-11-2023 09:20-0400 Systolic blood pressure 152 mm[Hg] Thierno Chatterjee Other [employer] Other 08-05-2023 08:15-0400 Body height 170.18 cm Charan Casey Other [employer] Other 08-05-2023 08:15-0400 Body mass index (BMI) [Ratio] 38.21 kg/m2 Charan Casey Other [employer] Other 08-05-2023 08:15-0400 Body weight 110.68 kg Charan Casey Other [employer] Other 08-05-2023 08:15-0400 Diastolic blood pressure 60 mm[Hg] Charan Casey Other [employer] Other 08-05-2023 08:15-0400 Respiratory rate 18 /min Charan Casey Other [employer] Other 08-05-2023 08:15-0400 SaO2% (BldA) [Mass fraction] 95 % Charan Casey Other [employer] Other 08-05-2023 08:15-0400 Systolic blood pressure 126 mm[Hg] Charan Casey Other [employer] Other 05-19-2023 12:30-0400 Body height 170.18 cm Charan Casey Other [employer] Other 05-19-2023 12:30-0400 Diastolic blood pressure 74 mm[Hg] Charan Casey Other [employer] Other 05-19-2023 12:30-0400 Respiratory rate 18 /min Charan Casey Other [employer] Other 05-19-2023 12:30-0400 SaO2% (BldA) [Mass fraction] 97 % Charan Casye Other [employer] Other 05-19-2023 12:30-0400 Systolic blood pressure 140 mm[Hg] Charan Casey Other [employer] Other 04-30-2023 10:17-0400 Body height 170.18 cm Charan Casey Work Phone: [employer] 250 DO Work Phone: 04-30-2023 10:17-0400 Body mass index (BMI) [Ratio] Medical Reason Not Done Charan Casey Work Phone: [employer] 250 DO Work Phone: 04-30-2023 10:17-0400 Diastolic blood pressure 64 mm[Hg] Charan Casey Work Phone: [facility] [employer] 250 DO Work Phone: 04-30-2023 10:17-0400 Heart rate 72 /min Charan Casey Work Phone: [facility] [employer] 250 DO Work Phone: 04-30-2023 10:17-0400 Systolic blood pressure 128 mm[Hg] Charan Casey Work Phone: [facility] [employer] 250 DO Work Phone: 03-31-2023 15:30-0400 Body height 170.18 cm Charan Casey Other [employer] Other 03-31-2023 15:30-0400 Diastolic blood pressure 64 mm[Hg] Charan Casey Other [employer] Other 03-31-2023 15:30-0400 Respiratory rate 18 /min Charan Casey Other [employer] Other 03-31-2023 15:30-0400 SaO2% (BldA) [Mass fraction] 98 % Charan Casey Other [employer] Other 03-31-2023 15:30-0400 Systolic blood pressure 126 mm[Hg] Charan Casey Other [employer] Other 03-10-2023 15:40-0400 Body height 170.18 cm Elpidio Sole Other [employer] Other 03-10-2023 15:40-0400 Diastolic blood pressure 86 mm[Hg] Elpidio Sole Other [employer] Other 03-10-2023 15:40-0400 Respiratory rate 16 /min Elpidio Sole Other [employer] Other 03-10-2023 15:40-0400 SaO2% (BldA) [Mass fraction] 99 % Elpidio Sole Other [employer] Other 03-10-2023 15:40-0400 Systolic blood pressure 135 mm[Hg] Elpidio Sole Other [employer] Other 03-04-2023 15:00-0400 Body height 170.18 cm Williamer Coco Other [employer] Other 03-04-2023 15:00-0400 Body mass index (BMI) [Ratio] 37.43 kg/m2 Williamer Coco Other [employer] Other 03-04-2023 15:00-0400 Body weight 108.41 kg Christbryoner Coco Other [employer] Other 03-04-2023 15:00-0400 Diastolic blood pressure 83 mm[Hg] Williamer Coco Other [employer] Other 03-04-2023 15:00-0400 SaO2% (BldA) [Mass fraction] 98 % Christbryoner Coco Other [employer] Other 03-04-2023 15:00-0400 Systolic blood pressure 157 mm[Hg] Kumaropher Coco Other [employer] Other 09-24-2022 16:00-0400 Body height 170.18 cm Elpidio Sole Other [employer] Other 09-24-2022 16:00-0400 Body mass index (BMI) [Ratio] 37.37 kg/m2 Elpidio Sole Other [employer] Other 09-24-2022 16:00-0400 Body temperature 96.4 [degF] Elpidio Sole Other [employer] Other 09-24-2022 16:00-0400 Body weight 108.23 kg Elpidio Sole Other [employer] Other 09-24-2022 16:00-0400 Diastolic blood pressure 64 mm[Hg] Elpidio Sole Other [employer] Other 09-24-2022 16:00-0400 Respiratory rate 16 /min Elpidio Sole Other [employer] Other 09-24-2022 16:00-0400 SaO2% (BldA) [Mass fraction] 98 % Elpidio Sole Other [employer] Other 09-24-2022 16:00-0400 Systolic blood pressure 120 mm[Hg] Elpidio Sole Other [employer] Other 09-02-2022 14:00-0400 Body height 170.18 cm Charan Casey Other [employer] Other 09-02-2022 14:00-0400 Body mass index (BMI) [Ratio] 37.9 kg/m2 Charan Casey Other [employer] Other 09-02-2022 14:00-0400 Body weight 109.77 kg Charan Casey Other [employer] Other 09-02-2022 14:00-0400 Diastolic blood pressure 70 mm[Hg] Charan Casey Other [employer] Other 09-02-2022 14:00-0400 Respiratory rate 16 /min Charan Casey Other [employer] Other 09-02-2022 14:00-0400 SaO2% (BldA) [Mass fraction] 97 % Charan Casey Other [employer] Other 09-02-2022 14:00-0400 Systolic blood pressure 112 mm[Hg] Charan Casey Other [employer] Other 07-27-2022 19:56-0400 Body height 170.18 cm DO Charan Masseys Work Phone: [place] 07-27-2022 19:56-0400 Body temperature 99.1 [degF] DO Charan Masseys Work Phone: [place] 07-27-2022 19:56-0400 Body weight 110.55 kg DO Charan Kuns Work Phone: [place] 07-27-2022 19:56-0400 Diastolic blood pressure 81 mm[Hg] DO Charan Kuns Work Phone: [place] 07-27-2022 19:56-0400 Heart rate 89 /min DO Charan Kuns Work Phone: [place] 07-27-2022 19:56-0400 Respiratory rate 20 /min DO Charan Brysons Work Phone: [place] 07-27-2022 19:56-0400 SaO2% (BldA) [Mass fraction] 98 % DO Charan Casey Work Phone: [place] 07-27-2022 19:56-0400 Systolic blood pressure 142 mm[Hg] DO Charanheather Casey Work Phone: [place] 05-08-2022 08:51-0400 Body height 170.18 cm Charan Louise Jacinto Work Phone: [facility] 250 DO Work Phone: 05-08-2022 08:51-0400 Body mass index (BMI) [Ratio] 38.06 kg/m2 Charan Dani Casey Work Phone: [facility] DO Work Phone: 05-08-2022 08:51-0400 Body surface area Derived from formula 2.2 m2 Charan Dani Casey Work Phone: [facility] DO Work Phone: 05-08-2022 08:51-0400 Body weight 110.22 kg Charan Dani Casey Work Phone: [facility] DO Work Phone: 05-08-2022 08:51-0400 Diastolic blood pressure 70 mm[Hg] Charan Louise Jacinto Work Phone: [facility] 250 DO Work Phone: 05-08-2022 08:51-0400 Heart rate 72 /min Charan Masseybryn Work Phone: [facility] DO Work Phone: 05-08-2022 08:51-0400 Systolic blood pressure 136 mm[Hg] Charan Casey Work Phone: [facility] DO Work Phone: 04-30-2022 17:00-0400 Body height 170.18 cm Federico Sepulveda Other [employer] Other 04-30-2022 17:00-0400 Body mass index (BMI) [Ratio] 38.52 kg/m2 Federico Hanno Other [employer] Other 04-30-2022 17:00-0400 Body temperature 97.1 [degF] Kumarbryonerika Coco Other [employer] Other 04-30-2022 17:00-0400 Body weight 111.59 kg Williamerika BucknerCoco Other [employer] Other 04-30-2022 17:00-0400 Diastolic blood pressure 86 mm[Hg] Federico Hanno Other [employer] Other 04-30-2022 17:00-0400 SaO2% (BldA) [Mass fraction] 97 % Federico Hanno Other [employer] Other 04-30-2022 17:00-0400 Systolic blood pressure 148 mm[Hg] Federico Bucknerdano Other [employer] Other 04-14-2022 11:30-0400 Body height 170.18 cm Charan Casey Other [employer] Other 04-14-2022 11:30-0400 Body mass index (BMI) [Ratio] 38.52 kg/m2 Charan Casey Other [employer] Other 04-14-2022 11:30-0400 Body weight 111.59 kg Charan Casey Other [employer] Other 04-14-2022 11:30-0400 Diastolic blood pressure 70 mm[Hg] Charan Casey Other [employer] Other 04-14-2022 11:30-0400 Respiratory rate 16 /min Charan Casey Other [employer] Other 04-14-2022 11:30-0400 SaO2% (BldA) [Mass fraction] 99 % Charan Casey Other [employer] Other 04-14-2022 11:30-0400 Systolic blood pressure 126 mm[Hg] Charan Casey Other [employer] Other 02-20-2022 17:00-0400 Body mass index (BMI) [Ratio] 38.56 kg/m2 Elpidio Sole Other [employer] Other 02-20-2022 17:00-0400 Body temperature 97.2 [degF] Elpidio Sole Other [employer] Other 02-20-2022 17:00-0400 Body weight 111.68 kg Elpidio Sole Other [employer] Other 02-20-2022 17:00-0400 Diastolic blood pressure 79 mm[Hg] Elpidio Sole Other [employer] Other 02-20-2022 17:00-0400 Respiratory rate 18 /min Elpidio Sole Other [employer] Other 02-20-2022 17:00-0400 SaO2% (BldA) [Mass fraction] 98 % Elpidio Sole Other [facility] [employer] Other 02-20-2022 17:00-0400 Systolic blood pressure 134 mm[Hg] Elpidio Sole Other [facility] [employer] Other 02-20-2022 12:28-0400 Body height 170.18 cm Charan Casey Work Phone: [facility] DO Work Phone: 02-20-2022 12:28-0400 Body mass index (BMI) [Ratio] 38.37 kg/m2 Charan Casey Work Phone: [facility] DO Work Phone: 02-20-2022 12:28-0400 Body surface area Derived from formula 2.2 m2 Charan Casey Work Phone: [facility] DO Work Phone: 02-20-2022 12:28-0400 Body weight 111.13 kg Charan Casey Work Phone: [facility] DO Work Phone: 02-20-2022 12:28-0400 Diastolic blood pressure 71 mm[Hg] Charan Casey Work Phone: [facility] 250 DO Work Phone: 02-20-2022 12:28-0400 Heart rate 72 /min Charan Casey Work Phone: [facility] 250 DO Work Phone: 02-20-2022 12:28-0400 Systolic blood pressure 131 mm[Hg] Charan Casey Work Phone: [facility] DO Work Phone: 02-07-2022 09:45-0500 Body height 170.18 cm Charan Casey Other [facility] [employer] Other 02-07-2022 09:45-0500 Body mass index (BMI) [Ratio] 38.27 kg/m2 Charan Casey Other [facility] [employer] Other 02-07-2022 09:45-0500 Body weight 110.86 kg Charan Casey Other [facility] [employer] Other 02-07-2022 09:45-0500 Diastolic blood pressure 82 mm[Hg] Charan Casey Other [facility] [employer] Other 02-07-2022 09:45-0500 Respiratory rate 18 /min Charan Casey Other [facility] [employer] Other 02-07-2022 09:45-0500 SaO2% (BldA) [Mass fraction] 95 % Charan Casey Other [facility] [employer] Other 02-07-2022 09:45-0500 Systolic blood pressure 148 mm[Hg] Charan Casey Other [facility] [employer] Other 12-31-2021 17:20-0500 Body height 170.18 cm Thierno Chatterjee Other [facility] [employer] Other 12-31-2021 17:20-0500 Body mass index (BMI) [Ratio] 38.84 kg/m2 Thierno Chatterjee Other [employer] Other 12-31-2021 17:20-0500 Body weight 112.49 kg Thierno Chatterjee Other [employer] Other 12-03-2021 15:00-0500 Body height 170.18 cm Charan Casey Other [employer] Other 10-01-2021 17:15-0400 Body height 170.18 cm Blas Maurererika Other [facility] [employer] Other Encounters Encounter Date Encounter Type Care Provider Facility Start: 07-27-2025 End: 07-27-2025 Bamboo flowsheet Shaina Munroe DO Work Phone: [facility] 230 Start: 07-27-2025 End: 07-27-2025 BamSwoopo flowsheet Shaina Munroe DO Work Phone: [facility] 230 Start: 07-27-2025 End: 07-27-2025 Office outpatient visit 25 minutes Shaina Munroe DO Work Phone: [facility] 230 Comment on above: Type 2 diabetes wicho itus with peripheral neuropathy (HCC) (Primary Dx); 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); Type 2 diabetes mellitus with both eyes affected by mild nonproliferative retinopathy without macular edema, with long-term current use of insulin (HCC); Long-term insulin use (HCC); Class 2 severe obesity due to excess calories with serious comorbidity and body mass index (BMI) of 35.0 to 35.9 in adult (CMS-HCC) Start: 07-27-2025 End: 07-27-2025 ambulatory SHAINA MUNROE Not Available Start: 07-12-2025 End: 07-12-2025 ambulatory Charan Casey DO Work Phone: [facility] Work Phone: Start: 07-12-2025 End: 07-12-2025 Patient encounter procedure Charan Louise DO -[facility] Work Phone: Start: 06-30-2025 Non-patient / Non-visit Karla Lyons MD -[facility] Work Phone: Start: 06-29-2025 Non-patient / Non-visit Karla Lyons MD -[facility] Work Phone: Start: 06-28-2025 Non-patient / Non-visit Gustavo Mason BASSETT -[facility] Work Phone: Start: 06-21-2025 End: 06-21-2025 ambulatory Charan Casey DO Work Phone: [facility] Work Phone: Start: 06-21-2025 End: 06-21-2025 Patient encounter procedure Blas Louise MD -[facility] Work Phone: Start: 06-14-2025 Non-patient / Non-visit Blas Louise MD -[facility] Work Phone: Start: 06-14-2025 End: 06-14-2025 ambulatory Charan Casey DO Work Phone: [facility] Work Phone: Start: 06-14-2025 End: 06-14-2025 Patient encounter procedure Blas Louise MD [facility] Work Phone: Start: 06-05-2025 End: 06-05-2025 Patient encounter procedure Acosta Castro DPM [place] -X-Ray [facility] Start: 06-05-2025 End: 06-05-2025 ambulatory Charan Jacinto DO Work Phone: [facility] Work Phone: Start: 05-31-2025 End: 05-31-2025 ambulatory Charan Masseys DO Work Phone: [facility] Work Phone: Start: 05-31-2025 End: 05-31-2025 Patient encounter procedure Blas Louise MD -[facility] Work Phone: Start: 05-15-2025 End: 05-15-2025 Office outpatient visit 25 minutes Shaina M Ludwig DO Work Phone: [facility] 230 Comment on above: Type 2 diabetes [...] (BMI) of 35.0 to 35.9 in adult ([facility]) Start: 05-15-2025 End: 05-15-2025 ambulatory SHAINA NELSONALFREDO Not Available Start: 03-06-2025 End: 03-06-2025 ambulatory Charan Casey DO Work Phone: [facility] Work Phone: Start: 03-06-2025 End: 03-06-2025 Patient encounter procedure Charan Casey DO Work Phone: [facility] Work Phone: Start: 02-16-2025 End: 02-16-2025 ambulatory Charan Casey DO Work Phone: [facility] Work Phone: Start: 02-16-2025 End: 02-16-2025 Patient encounter procedure Charan Casey DO Work Phone: [facility] Work Phone: Start: 02-14-2025 End: 02-14-2025 ambulatory SHANIA M LUDWIG Not Available Start: 02-01-2025 Non-patient / Non-visit Charan Casey DO Work Phone: [facility] Work Phone: Start: 02-01-2025 End: 02-01-2025 ambulatory Charan Kuns DO Work Phone: [facility] Work Phone: Start: 02-01-2025 End: 02-01-2025 Patient encounter procedure Charan Casey DO Work Phone: [facility] Work Phone: Start: 01-31-2025 End: 01-31-2025 ambulatory Charan Casey DO Work Phone: [facility] Work Phone: Start: 01-31-2025 End: 01-31-2025 Discharged Recurring Charan Casey DO Work Phone: [facility]-Physical Therapy [place] Start: 01-31-2025 Registered Recurring Charan clemente DO Work Phone: [facility]-Physical Therapy [place] Start: 01-26-2025 End: 01-26-2025 ambulatory Charan Casey DO Work Phone: [facility] Work Phone: Start: 01-26-2025 End: 01-26-2025 Patient encounter procedure Charan Casey DO Work Phone: [facility] Work Phone: Start: 01-26-2025 Registered Recurring Charan clemente DO Work Phone: [facility]-Physical Therapy [place] Start: 01-23-2025 End: 01-23-2025 Patient encounter procedure Charan Casey DO Work Phone: [facility]-MRI [address] Work Phone: Start: 01-23-2025 End: 01-23-2025 ambulatory Charanheather Casey DO Work Phone: [facility] Work Phone: Start: 01-18-2025 End: 01-18-2025 ambulatory Charan Casey DO Work Phone: [facility] Work Phone: Start: 01-18-2025 End: 01-18-2025 Patient encounter procedure Charan Casey DO Work Phone: [facility] Work Phone: Start: 01-13-2025 Registered Recurring Charan Massey s DO Work Phone: [facility]-Physical Therapy [place] Start: 01-09-2025 End: 01-09-2025 Telephone encounter Shaina Munore DO [facility] Start: 01-09-2025 Non-patient / Non-visit Charan Casey DO Work Phone: [facility] Work Phone: Start: 01-09-2025 End: 01-09-2025 ambulatory Charan Casey DO Work Phone: [facility] Work Phone: Start: 01-09-2025 End: 01-09-2025 Patient encounter procedure Charan Casey DO Work Phone: [facility] Work Phone: Start: 01-03-2025 Registered Recurring Charan clemente DO Work Phone: [facility]-Physical Therapy [place] Start: 12-29-2024 End: 12-29-2024 ambulatory Charan Casey DO Work Phone: [facility] Work Phone: Start: 12-29-2024 End: 12-29-2024 Patient encounter procedure Charan Casey DO Work Phone: [facility] Work Phone: Start: 12-26-2024 End: 12-26-2024 ambulatory Charan Casey DO Work Phone: [facility] Work Phone: Start: 12-26-2024 End: 12-26-2024 Patient encounter procedure Charan Casey DO Work Phone: [facility] Work Phone: Start: 12-26-2024 Registered Recurring Charan clemente DO Work Phone: [facility]-Physical Therapy [place] Start: 12-09-2024 End: 12-09-2024 ambulatory Charan Casey DO Work Phone: [facility] Work Phone: Start: 12-09-2024 End: 12-09-2024 Patient encounter procedure Charan Casey DO Work Phone: [facility] Work Phone: Start: 12-08-2024 End: 12-08-2024 Patient encounter procedure Charan Casey DO Work Phone: [facility]-X-Ray [facility] Start: 12-08-2024 End: 12-08-2024 ambulatory Charan Casey DO Work Phone: [facility] Work Phone: Start: 11-15-2024 Registered Recurring Charan clemente DO Work Phone: [facility]-Physical Therapy [place] Start: 2024 Non-patient / Non-visit Charanheather Casey DO Work Phone: [facility] Work Phone: Start: 2024 End: 2024 Admission to same day surgery center Charan Casey DO Work Phone: [facility]-Digestive Health Work Phone: Start: 2024 End: 2024 ambulatory Blas Ortiz Facility:[place] Start: 10-25-2024 End: 10-25-2024 Patient encounter procedure Charan Casey DO Work Phone: [facility] Work Phone: Start: 10-25-2024 End: 10-25-2024 ambulatory Nader Davis Antoinette Facility:[place] Start: 10-19-2024 End: 10-19-2024 ambulatory Charan Casey DO Work Phone: [facility] Work Phone: Start: 10-19-2024 End: 10-19-2024 Patient encounter procedure Charan Casey DO Work Phone: [facility] Work Phone: Start: 10-17-2024 End: 10-17-2024 Office outpatient visit 25 minutes Shaina Munroe DO Work Phone: [facility] 230 Comment on above: Type 2 diabetes [...] / Non-visit DO Yeison Casey Work Phone: [facility] Work Phone: Start: 09-20-2024 End: 09-20-2024 Admission to same day surgery center DO Charan Casey Work Phone: [facility] Work Phone: Start: 09-20-2024 End: 09-20-2024 ambulatory DO Charan Casey Work Phone: [facility] Work Phone: Start: 09-12-2024 Non-patient / Non-visit DO Yeison Casey Work Phone: [facility] [place] Work Phone: Start: 09-12-2024 End: 09-12-2024 ambulatory DO Charan Casey Work Phone: [facility] Work Phone: Start: 09-12-2024 End: 09-12-2024 Patient encounter procedure DO Charan Casey Work Phone: [facility] Work Phone: Start: 09-07-2024 End: 09-07-2024 Patient encounter procedure DO Charan Casey Work Phone: [facility] Work Phone: Start: 09-07-2024 End: 09-07-2024 ambulatory DO Charan Casey Work Phone: [facility] Work Phone: Start: 09-02-2024 End: 09-02-2024 ambulatory Charan Casey Facility:[place] Start: 09-02-2024 Registered Recurring DO Charan Casey Work Phone: [facility]-Physical Therapy [place] Start: 08-25-2024 End: 08-25-2024 Office outpatient visit 25 minutes Rosalinda Torres MD Work Phone: [facility] Comment on above: Coronary artery dise ase, unspecified vessel or lesion type, unspecified whether angina present, unspecified whether [place] or transplanted heart; Elevated coronary artery calcium score; Essential hypertension; Hyperlipidemia, unspecified hyperlipidemia type; Type 2 diabetes mellitus without complication, with long-term current use of insulin (Multi); 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; Obstructive sleep apnea syndrome; Class 2 obesity with body mass index (BMI) of 37.0 to 37.9 in adult, unspecified obesity type, unspecified whether serious comorbidity present Start: 06-13-2024 End: 06-13-2024 ambulatory DO Charan Casey Work Phone: [facility] Work Phone: Start: 06-13-2024 End: 06-13-2024 Patient encounter procedure DO Charan Casey Work Phone: [facility] Work Phone: Start: 06-08-2024 End: 06-08-2024 ambulatory DO Charan Casey Work Phone: [facility] Work Phone: Start: 06-08-2024 End: 06-08-2024 Patient encounter procedure DO Charan Casey Work Phone: [facility] Work Phone: Start: 05-31-2024 Non-patient / Non-visit DO Yeison heather Casey Work Phone: [facility] Work Phone: Start: 05-31-2024 End: 05-31-2024 Admission to same day surgery center DO Charan Casey Work Phone: [facility] Work Phone: Start: 05-31-2024 End: 05-31-2024 ambulatory DO Charan Casey Work Phone: [facility] Work Phone: Start: 05-23-2024 End: 05-23-2024 ambulatory DO Charan Casey Work Phone: [facility] Work Phone: Start: 05-23-2024 End: 05-23-2024 Patient encounter procedure DO Charan Casey Work Phone: [facility] Work Phone: Start: 05-13-2024 Non-patient / Non-visit DO Yeison Casey Work Phone: [facility] [place] Work Phone: Start: 04-19-2024 Non-patient / Non-visit DO Yeison Casey Work Phone: [facility] [place] Work Phone: Start: 03-18-2024 Non-patient / Non-visit DO Yeison Casey Work Phone: [facility] Work Phone: Start: 03-17-2024 End: 03-17-2024 ambulatory DO Charanheather Casey Work Phone: [facility] Work Phone: Start: 03-17-2024 End: 03-17-2024 Patient encounter procedure DO Charan Casey Work Phone: [facility] Work Phone: Start: 03-05-2024 End: 03-05-2024 ambulatory DO Charanheather Casey Work Phone: [facility] Work Phone: Start: 03-05-2024 End: 03-05-2024 Patient encounter procedure DO Charan Casey Work Phone: [facility]-MRI [facility] [place] Work Phone: Start: 03-01-2024 End: 03-01-2024 ambulatory DO Charanheather Masseys Work Phone: [facility] Work Phone: Start: 03-01-2024 End: 03-01-2024 Patient encounter procedure DO Charanheather Masseys Work Phone: [facility] Work Phone: Start: 02-29-2024 End: 02-29-2024 ambulatory DO Charan Casey Work Phone: [facility] Work Phone: Start: 02-29-2024 End: 02-29-2024 Patient encounter procedure DO Charan Casey Work Phone: [facility] Start: 02-23-2024 Non-patient / Non-visit DO Yeison heather Jacinto Work Phone[facility] Work Phone: Start: 02-22-2024 End: 02-22-2024 ambulatory ROSALINDA Morales [facility] Ambulatory Start: 02-22-2024 End: 02-22-2024 Office outpatient visit 25 minutes Rosalinda Torres MD Work Phone: [facility] Comment on above: Coronary artery dise ase, unspecified vessel or lesion type, unspecified whether angina present, unspecified whether [place] or transplanted heart (Primary Dx); Essential hypertension; 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; Hyperlipidemia, unspecified hyperlipidemia type; Obstructive sleep apnea syndrome; Class 2 obesity with body mass index (BMI) of 37.0 to 37.9 in adult, unspecified obesity type, unspecified whether serious comorbidity present; Insulin-requiring or dependent type II diabetes mellitus ([facility] Start: 02-17-2024 Non-patient / Non-visit DO Yeison Casey Work Phone: [facility] Work Phone: Start: 02-12-2024 Non-patient / Non-visit DO Yeison heather Jacinto Work Phone: [facility] Work Phone: Start: 02-04-2024 End: 02-04-2024 Patient encounter procedure DO Charan Casey Work Phone: [facility] Work Phone: Start: 01-11-2024 End: 01-11-2024 ambulatory Charan Masseybryn Other [employer] Other Start: 01-11-2024 Telephone encounter Charan Masseys [facility] [place] Start: 12-31-2023 End: 12-31-2023 ambulatory Charan Masseys Other [employer] Other Start: 12-31-2023 Telephone encounter Charan Casey [facility] [place] Start: 12-30-2023 End: 12-30-2023 Patient encounter procedure DO Charan Masseybryn Work Phone: [facility] Start: 12-30-2023 End: 12-30-2023 ambulatory DO Hcaran Brysonbryn Work Phone: [facility] Work Phone: Start: 12-30-2023 Office outpatient vi sit 15 minutes [facility] Start: 12-30-2023 End: 12-30-2023 Patient encounter procedure DO Charanheather Casey Work Phone: [facility]- Start: 11-26-2023 End: 11-26-2023 ambulatory DO Charanheather Casey Work Phone: [facility] Work Phone: Start: 11-26-2023 End: 11-26-2023 Patient encounter procedure DO Charan Casey Work Phone: [facility] Start: 11-06-2023 End: 11-06-2023 ambulatory Charan Masseys Other [facility] [employer] Other Start: 11-06-2023 Telephone encounter Charan Casey [employer] Start: 11-05-2023 Diabetic care education Renée Watts [facility] Start: 11-05-2023 Encounter by computer link Renée Watts [facility] Start: 11-05-2023 End: 11-05-2023 ambulatory DO Charan Casey Work Phone: [employer] Other Start: 11-05-2023 End: 11-05-2023 Discharged Recurring DO Charan Casey Work Phone: [facility] Work Phone: Start: 11-05-2023 Registered Recurring DO Charan Casey Work Phone: [facility] Work Phone: Start: 11-03-2023 End: 11-03-2023 ambulatory Charan Casey Other [employer] Other Start: 11-03-2023 Telephone encounter Charan Casey [facility] [place] Start: 10-28-2023 End: 10-28-2023 ambulatory Blas Ortiz Other [employer] Other Start: 10-28-2023 Office outpatient vi sit 15 minutes Blas Ortiz [facility] [place] Start: 10-28-2023 Telephone encounter Blas Oritz [facility] [place] Start: 10-28-2023 End: 10-28-2023 Patient encounter procedure DO Charan Jacinto Work Phone: [facility] [place] Work Phone: Start: 10-21-2023 End: 10-21-2023 ambulatory Blas Helper Other [employer] Other Start: 10-21-2023 Office outpatient vi sit 15 minutes Blas Bellamy [facility] [address] Start: 10-21-2023 End: 10-21-2023 Patient encounter procedure DO Charan Casey Work Phone: [facility] [place] Work Phone: Start: 10-19-2023 End: 10-19-2023 ambulatory Blas Erastoerika Other [employer] Other Start: 10-19-2023 Telephone encounter Blas Ortiz [facility] [place] Start: 10-07-2023 End: 10-07-2023 ambulatory Charan Casey Other [employer] Other Start: 10-07-2023 Telephone encounter Charan Casey [facility] [place] Start: 10-06-2023 End: 10-06-2023 Admission to same day surgery center DO Charan Casey Work Phone: [facility] Work Phone: Start: 10-06-2023 End: 10-06-2023 ambulatory DO Charan Casey Work Phone: [facility] Work Phone: Start: 09-23-2023 End: 09-23-2023 ambulatory Blas Ortiz Other [employer] Other Start: 09-23-2023 Office outpatient vi sit 15 minutes Blas Ortiz [facility] [place] Start: 09-15-2023 End: 09-15-2023 ambulatory Elpidio Sole Other [employer] Other Start: 09-15-2023 Office outpatient vi sit 25 minutes Elpidio Sole [facility] Start: 09-14-2023 End: 09-14-2023 ambulatory DO Charan Casey Work Phone: [facility] Work Phone: Start: 09-14-2023 End: 09-14-2023 Patient encounter procedure DO Charan Casey Work Phone: [facility] Start: 09-08-2023 (Procedure) Short Blas Ortiz [facility] Start: 09-08-2023 End: 09-08-2023 Admission to same day surgery center DO Charan Casey Work Phone: [facility] Work Phone: Start: 09-08-2023 End: 09-08-2023 ambulatory DO Charan Casey Work Phone: [facility] Work Phone: Start: 08-25-2023 End: 08-25-2023 ambulatory Imad Asaad Other [employer] Other Start: 08-25-2023 Telephone encounter Yasmeen Treadwell [employer] Start: 08-18-2023 End: 08-18-2023 ambulatory Charan Casey Other [employer] Other Start: 08-18-2023 Telephone encounter Charan Casey [facility] [place] Start: 08-17-2023 End: 08-17-2023 ambulatory Blas Ortiz Other [employer] Other Start: 08-17-2023 Office outpatient vi sit 25 minutes Blas Ortiz [facility] [place] Start: 08-17-2023 End: 08-17-2023 Patient encounter procedure DO Charan Casey Work Phone: [facility] [place] [facility] Start: 08-11-2023 Office outpatient vi sit 15 minutes Thierno Chatterjee [facility] Start: 08-11-2023 End: 08-11-2023 ambulatory DO Charan Casey Work Phone: [facility] Work Phone: Start: 08-11-2023 End: 08-11-2023 Patient encounter procedure DO Charan Casey Work Phone: [facility] Start: 08-05-2023 End: 08-05-2023 ambulatory Charan Casey Other [employer] Other Start: 08-05-2023 Office outpatient vi sit 25 minutes Charan Casey [facility] Start: 07-02-2023 End: 07-02-2023 ambulatory Charan Casey Other [employer] Other Start: 07-02-2023 Telephone encounter Charan Casey [facility] Start: 06-08-2023 End: 06-08-2023 ambulatory DO Charan Casey Work Phone: [facility] Work Phone: Start: 06-08-2023 End: 06-08-2023 Discharged Recurring DO Charan Casey Work Phone: [facility]Physical Therapy [facility] Start: 05-28-2023 End: 05-28-2023 ambulatory Renée Watts Other [employer] Other Start: 05-28-2023 Diabetic care education Renée Watts [facility] Start: 05-28-2023 Registered Recurring DO Charan Casey Work Phone: [facility] Work Phone: Start: 05-19-2023 Office outpatient vi sit 25 minutes Charan Casey [facility] Start: 05-19-2023 End: 05-19-2023 ambulatory DO Charan Casey Work Phone: [facility] Work Phone: Start: 05-19-2023 End: 05-19-2023 Patient encounter procedure DO Charan Casey Work Phone: [facility] Start: 05-05-2023 End: 05-05-2023 ambulatory Charan Casey Other [employer] Other Start: 05-05-2023 Telephone encounter Charan Casey [facility] [place] Start: 04-30-2023 Office outpatient vi sit 25 minutes Charan Casey Work Phone: [facility] 250 DO Work Phone: Start: 04-30-[address] Charan Casey Facility: Start: 04-13-2023 End: 04-13-2023 ambulatory ACOSTA CASTRO Facility:H1 Start: 04-07-2023 End: 04-08-2023 ambulatory BLANKA OLGUIN Facility:H1 Start: 04-06-2023 Encounter for preprocedural laboratory examination ACOSTA CASTRO [facility] Start: 04-06-2023 End: 04-06-2023 ambulatory Charan Casey Other [employer] Other Start: 04-06-2023 Telephone encounter Charan Casey [facility] [place] Start: 03-31-2023 Office outpatient vi sit 25 minutes Charan Casey [facility] [place] Start: 03-31-2023 End: 04-01-2023 ambulatory ACOSTA [facility] [employer] Other Start: 03-31-2023 End: 04-01-2023 Encounter for preprocedural laboratory examination ACOSTA HERNANDEZMISAEL Facility:H1 Start: 03-26-2023 End: 03-26-2023 ambulatory Charan Casey Other [employer] Other Start: 03-26-2023 Telephone encounter Charan Casey [facility] [place] Start: 03-23-2023 End: 03-24-2023 ambulatory BLANKA OLGUIN Facility:H1 Start: 03-10-2023 End: 03-10-2023 ambulatory Elpidio Sole Other [employer] Other Start: 03-10-2023 Office outpatient vi sit 25 minutes Elpidio Sole [facility] Start: 03-06-2023 End: 03-06-2023 ambulatory DO Charan Casey Work Phone: [facility] Work Phone: Start: 03-06-2023 End: 03-06-2023 Patient encounter procedure DO Charan Casey Work Phone: [facility] Start: 03-04-2023 Office outpatient vi sit 15 minutes Federico Sepulveda [facility] Start: 03-04-2023 Telephone encounter Charan Casey [facility] Start: 03-04-2023 End: 03-04-2023 ambulatory DO Charan Brysonbryn Work Phone: [employer] Other Start: 03-04-2023 End: 03-04-2023 Patient encounter procedure DO Charan Casey Work Phone: [facility] Work Phone: Start: 03-03-2023 End: 03-04-2023 ambulatory BLANKA OLGUIN Facility:H1 Start: 02-17-2023 End: 02-18-2023 ambulatory BRODERICK FLOR Facility:H1 Start: 02-16-2023 End: 02-16-2023 ambulatory Charan Casey Other [employer] Other Start: 02-16-2023 Telephone encounter Charan Casey [facility] [place] Start: 02-05-2023 End: 02-05-2023 ambulatory Charan Jacinto Other [employer] Other Start: 02-05-2023 Telephone encounter Charan Jacinto [facility] [place] Start: 02-03-2023 End: 02-04-2023 ambulatory BRODERICK FLOR Facility:H1 Start: 01-27-2023 End: 01-27-2023 Patient encounter procedure DO Charan Casey Work Phone: [facility] Work Phone: Start: 01-27-2023 End: 01-27-2023 ambulatory DO Charan Casey Work Phone: [facility] Work Phone: Start: 01-27-2023 Immune Injection one Vaccine (Admin Chg) Renée Watts [facility] Start: 01-20-2023 End: 01-21-2023 ambulatory BLANKA OLGUIN Facility:H1 Start: 01-19-2023 End: 01-19-2023 ambulatory Charan Casey Other [facility] [employer] Other Start: 01-19-2023 Telephone encounter Charan Casey [facility] Start: 12-29-2022 End: 12-31-2022 ambulatory BLANKA OLGUIN Facility:H1 Start: 12-25-2022 Encounter for preprocedural cardiovascular examination [facility] Start: 12-25-2022 Encounter for preprocedural laboratory examination [facility] Start: 12-23-2022 End: 12-24-2022 ambulatory [facility] Facility:H1 Start: 12-23-2022 End: 12-24-2022 Encounter for preprocedural cardiovascular examination [facility] Facility:H1 Start: 11-26-2022 End: 11-27-2022 ambulatory BRODERICK FLOR Facility:H1 Start: 11-12-2022 End: 11-13-2022 ambulatory BLANKA OLGUIN Facility:H1 Start: 11-12-[address] Charan Casey Facility: Start: 10-28-2022 ([facility] INJ) [facility] Injection Eliud Napoleon manuela [facility] Start: 10-28-2022 End: 10-28-2022 ambulatory DO Charan Casey Work Phone: [facility] Work Phone: Start: 10-28-2022 End: 10-28-2022 Patient encounter procedure DO Charan Casey Work Phone: [facility] Start: 10-16-2022 ([facility] C Vac) [facility] Co vid Vaccine Renée Watts [facility] Start: 10-16-2022 ([facility] INJ) [facility] Injection Renée Mac [facility] Start: 10-16-2022 Telephone encounter Elpidio Sole [facility] Nephrology Start: 10-16-2022 End: 10-16-2022 ambulatory DO Charan Casey Work Phone: [employer] Other Start: 10-16-2022 End: 10-16-2022 Patient encounter procedure DO Charan Casey Work Phone: [facility] [facility] Start: 10-15-2022 End: 10-15-2022 ambulatory DO Charan Casey Work Phone: [facility] Work Phone: Start: 10-15-2022 End: 10-15-2022 Patient encounter procedure DO Charan Casey Work Phone: [facility] [address] Start: 10-13-2022 End: 10-13-2022 ambulatory DO Charan Casey Work Phone: [facility] Work Phone: Start: 10-13-2022 End: 10-13-2022 Patient encounter procedure DO Charanheather Masseybryn Work Phone: [facility] [address] Start: 09-24-2022 End: 09-24-2022 ambulatory Elpidio Sole Other [employer] Other Start: 09-24-2022 Office outpatient vi sit 25 minutes Elpidio Sole [facility] [place] Start: 09-02-2022 End: 09-02-2022 ambulatory Charan Casey Other [employer] Other Start: 09-02-2022 Office outpatient vi sit 25 minutes Charan Casey [facility] [place] Start: 08-13-2022 End: 08-13-2022 Patient encounter procedure DO Charan Casey Work Phone: [facility] Start: 08-07-2022 End: 08-07-2022 ambulatory Charan Casey Other [employer] Other Start: 08-07-2022 [facility] Start: 07-27-2022 End: 07-27-2022 Emergency department patient visit DO Charan Casey Work Phone: [facility]Emer[facility] Start: 07-16-2022 End: 07-16-2022 ambulatory Charan Casey Other [facility] [employer] Other Start: 07-16-2022 Telephone encounter Charan Casey [facility] Start: 07-02-2022 End: 07-02-2022 ambulatory Charan Casey Other [facility] [employer] Other Start: 07-02-2022 Telephone encounter Charan Casey [facility] Start: 05-08-2022 Office outpatient vi sit 25 minutes Charan Casey Work Phone: [place] [address] DO Work Phone: Start: 04-30-2022 End: 04-30-2022 ambulatory Federico Sepulveda Other [facility] [employer] Other Start: 04-30-2022 Office outpatient vi sit 10 minutes Federico Sepulveda [facility] Start: 04-14-2022 End: 04-14-2022 ambulatory Charan Casey Other [employer] Other Start: 04-14-2022 Office outpatient vi sit 25 minutes Charan Casey [facility] [place] Start: 04-07-2022 End: 04-07-2022 ambulatory Charanheather Casey Other [employer] Other Start: 04-07-2022 Telephone encounter Charan Casey [facility] [place] Start: 04-02-2022 End: 04-02-2022 ambulatory Charanheather Casey Other [employer] Other Start: 04-02-2022 Telephone encounter Charan Casey [facility] [place] Start: 03-31-2022 End: 03-31-2022 ambulatory Charanheather Casey Other [employer] Other Start: 03-31-2022 Telephone encounter Charan Casey [facility] [place] Start: 03-27-2022 [facility], Provider: Rosalinda Torres, Status: Pen, Time: 1:00 PM Charan Casey Work Phone: [facility] [address] DO Work Phone: Start: 03-26-2022 Chart Update Charanheather Casey Work Phone: [facility] 250 DO Work Phone: Start: 03-13-2022 End: 03-13-2022 ambulatory Charanheather Casey Other [facility] [employer] Other Start: 03-13-2022 Telephone encounter Charanheather Casey [facility] Start: 03-12-2022 Chart Update Charan Louise Jacinto Work Phone: [facility] 250 DO Work Phone: Start: 03-07-2022 End: 03-07-2022 ambulatory Renée Watts Other [employer] Other Start: 03-07-2022 Telephone encounter Renée Watts [facility] Start: 03-04-2022 End: 03-04-2022 ambulatory Charan Casey Other [employer] Other Start: 03-04-2022 Telephone encounter Charan Casey [facility] Start: 02-20-2022 End: 02-20-2022 ambulatory Elpidio Sole Other [employer] Other Start: 02-20-2022 Office outpatient vi sit 25 minutes Elpidio Sole [facility] Start: 02-10-2022 End: 02-10-2022 ambulatory Charan Casey Other [employer] Other Start: 02-10-2022 Telephone encounter Charan Casey [facility] [place] Start: 02-07-2022 End: 02-07-2022 ambulatory Charan Casey Other [employer] Other Start: 02-07-2022 Office outpatient vi sit 25 minutes Charan Casey [facility] [place] Start: 02-05-2022 End: 02-05-2022 ambulatory Charan Casey Other [employer] Other Start: 02-05-2022 Telephone encounter Charan Casey [facility] [place] Start: 01-21-2022 End: 01-21-2022 ambulatory Charan Casey Other [employer] Other Start: 01-21-2022 Telephone encounter Charan Casey [facility] [place] Start: 12-31-2021 End: 12-31-2021 ambulatory Thierno Chatterjee Other [employer] Other Start: 12-31-2021 Office outpatient vi sit 15 minutes Thierno Chatterjee [facility] Neuro[facility] Start: 12-07-2021 End: 12-07-2021 ambulatory Charan Casey Other [employer] Other Start: 12-07-2021 Telephone encounter Charan Jacinto [facility] Start: 12-06-2021 End: 12-06-2021 ambulatory Charan Masseybryn Other [employer] Other Start: 12-06-2021 Telephone encounter Charan Casey [facility] Start: 12-03-2021 End: 12-03-2021 ambulatory Charan Casey Other [employer] Other Start: 12-03-2021 Office outpatient vi sit 15 minutes Charan Casey [facility] Start: 10-01-2021 End: 10-01-2021 ambulatory Blas Ortiz Other [employer] Other Start: 10-01-2021 Office outpatient vi sit 25 minutes Blas Ortiz [facility] [place] End: 02-20-2022 Patient encounter status Charan Dani Jacinto Work Phone: [facility] 250 DO Work Phone: Procedures Date [...] views DO Charan Casey Work Phone: Start: 06-20-2023 Plain chest X-ray DO Charan Casey Work [...] knee Charan Casey Work Phone: Cardiac catheterization Brya n P Brysons Work Phone: section Charan P Bryson s Work Phone: Cholecystectomy Charan P Brysons Work Phone: History of placement of stent for coronary artery disease 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 Charan Casey Work Phone: Comment on above: LAD [...] Charan Buck ns Work Phone: Total colonoscopy Chraan Bukc ns Work Phone: Comment on above: [id number]; Plan of Treatment Date Care Activity Detail Author Start: 10-06-2033 Screening for malign ant neoplasm of colon [facility] Start: 2025 Pneumococcal Vaccine : Pediatrics (0 to 5 Years) and At-Risk Patients (6 to 64 Years) (3 - PPSV23 or PCV20) Pneumococcal Vaccine: Pediatrics (0 to 5 Years) and At-Risk Patients (6 to 64 Years) (3 - PPSV23 or PCV20) [facility] Start: 2025 Pneumococcal Vaccine : Pediatrics (0 to 5 Years) and At-Risk Patients (6 to 64 Years) (3 of 3 - PPSV23 or PCV20) Pneumococcal Vaccine: Pediatrics (0 to 5 Years) and At-Risk Patients (6 to 64 Years) (3 of 3 - PPSV23 or PCV20) [facility] Start: 10-24-2025 End: 10-24-2025 Patient encounter procedure 10/24/2025 10:30 AM EST Office Visit [facility] [address] [place] [address] Shaina Munroe DO [address] [place] [address] [facility] 230 Start: 09-05-2025 Glaucoma screening Diabetes: R etinopathy Screening [facility] Start: 08-15-2025 End: 08-15-2025 Patient encounter [address] [facility] 230 Start: 07-31-2025 Influenza vaccination [facility] Start: 07-27-2025 End: 07-27-2025 Patient encounter procedure 07/27/2025 8:15 AM EDT Office Visit [facility] [place] [facility] [address] [place] [address] Shaina Munroe, DO [address] [place] [address] Arrived [facility] 230 Comment on above: Arrived Start: 03-28-2025 End: 03-28-2025 Patient encounter procedure 03/28/2025 8:50 AM EDT Office Visit [facility] [address] [place] [address] Rosalinda Torres MD [address] [place] [address] [facility] Start: 02-14-2025 End: 02-14-2025 Patient encounter procedure 02/14/2025 9:30 AM EDT Office Visit [facility] [address] [place] [address] Shaina Munroe, DO [address] [place] [address] [facility] 230 Start: 01-23-2025 MR Shoulder - right WO contrast [place] Start: 01-23-2025 MRI of right shoulder MR shoulder RT wo con [place] Start: 01-17-2025 Hemoglobin A1c measurement Diabetes: Hemoglobin A1C [facility] Start: 2024 [place] Start: 09-20-2024 [place] Start: 08-25-2024 End: 08-25-2024 Patient encounter procedure 08/25/2024 8:40 AM EDT Office Visit [facility] [address] [place] [address] Rosalinda Torres MD [address] [place] [address] [facility] Start: 07-31-2024 COVID-19 Vaccine ( season) COVID-19 Vaccine ( season) [facility] Start: 07-31-2024 Influenza vaccination Influenza Vacc ine (#1) [facility] Start: 05-31-2024 [place] Start: 02-29-2024 Bacteria identified in Urine by Culture [place] Start: 02-29-2024 Urine culture Urine Culture [facility] Start: 11-10-2023 FUV, Provider: Rosalinda Torres, Status: Pen, Time: 9:10 AM [facility], Provider: Rosalinda Torres, Status: Pen, Time: 9:10 AM [facility] [employer] 250 DO Work Phone: Start: 10-06-2023 [place] Start: 09-08-2023 [place] Start: 07-31-2023 COVID-19 Vaccine ( season) COVID-19 Vaccine ( season) [facility] Start: 07-31-2023 Influenza vaccination Influenza Vacc ine (#1) [facility] Start: 03-06-2023 Bacteria identified in Urine by Culture [place] Start: 11-12-2022 FUV, Provider: Rosalinda Torres, Status: Pen, Time: 9:00 AM [facility], Provider: Rosalinda Torres, Status: Pen, Time: 9:00 AM [facility] [employer] 250 DO Work Phone: Start: 09-08-2022 DTaP/Tdap/Td Vaccine s (2 - Td or Tdap) DTaP/Tdap/Td Vaccines (2 - Td or Tdap) [facility] Start: 03-27-2022 [facility], Provider: Rosalinda Torres, Status: Pen, Time: 1:00 PM [facility], Provider: Rosalinda Torres, Status: Pen, Time: 1:00 PM [facility] [employer] 250 DO Work Phone: Start: 03-14-2022 FUV, Provider: Rosalinda Torres, Status: Pen, Time: 1:50 PM [facility], Provider: Rosalinda Torres, Status: Pen, Time: 1:50 PM -[facility] 250 DO Work Phone: Start: 2020 RSV patient s and/or patients aged 60+ years (1 - 1-dose 60+ series) RSV patients and/or patients aged 60+ years (1 - 1-dose 60+ series) [facility] Start: 2000 Screening for malign ant neoplasm of breast Mammogram [facility] Start: 1990 Screening for malign ant neoplasm of cervix [facility] Start: 1982 DTaP/Tdap/Td Vaccine s (1 - Tdap) DTaP/Tdap/Td Vaccines (1 - Tdap) [facility] Start: 1981 Screening for malign ant neoplasm of cervix [facility] Start: 1979 Urine screening for protein Diabetes: Urine Protein Screening [facility] Start: 1978 Hepatitis C screening Hepatitis C Sc reening [facility] Start: 1970 Diabetic foot examination Diabetes: Foot Exam [facility] Start: 1970 Glaucoma screening Diabetes: R etinopathy Screening [facility] Start: 1961 MMR Vaccines (1 of 1 - Standard series) MMR Vaccines (1 of 1 - Standard series) [facility] Start: 1960 Hemoglobin A1c measurement Diabetes: Hemoglobin A1C [facility] Start: 1960 HIV screening HIV Screening [facility] Start: 1960 Lipid panel Lipid Panel [facility] Start: 1960 Medicare Annual Well ness (AWV) Medicare Annual Wellness (AWV) [facility] Start: 1960 Medicare Annual Well ness Visit Medicare Annual Wellness Visit (AWV) [facility] Start: 1960 Screening for malign ant neoplasm of colon [facility] Start: 1960 Yearly Adult Physical Yearly Adult P hysical [facility] Comprehensive metabo lic 2000 panel - Serum or Plasma [place] MR Lumbar spine WO a nd W contrast IV [place] MR Shoulder - right WO contrast [place] Patient Education [facility] Work Phone: Patient referral [facility] Work Phone: Renal function 1999 panel - Serum or Plasma [place] Rheumatoid factor [Units/volume] in Serum or Plasma [facility] Immunizations Immunization Date Immunization Notes Care Provider Fa cility 01-27-2023 zoster vaccine recombinant Renée Fitt Other [place] 10-28-2022 zoster vaccine recombinant Eliud LePoire Other [place] 10-16-2022 influenza virus vaccine, unspecified formulation DO Charan Casey Work Phone: [place] 10-16-2022 influenza, seasonal, injectable Rosalinda Torres MD Work Phone: [facility] Work Phone: 10-16-2022 Moderna SARS-CoV-2 Vaccination Rosalinda Torres MD Work Phone: [facility] Work Phone: 10-16-2022 COVID-19 Moderna (BIvalent) Renée Fitt Other [place] 10-16-2022 influenza, high dose seasonal, preservative-free Renée Fitt Other [facility] [employer] Other 10-16-2022 influenza, injectabl e, quadrivalent, preservative free Renée Fitt Other [facility] [employer] [facility] [employer] Other 09-26-2021 Moderna COVID-19 Vaccine 100 MCG/0.5ML Intramuscular Suspension Charan Casey Work Phone: [place] 09-25-2021 Moderna SARS-CoV-2 Booster Vaccination Shaina Munroe DO Work Phone: [facility] 08-30-2021 seasonal influenza, intradermal, preservative free Charan Louise [facility]sonbryn Work [facility]: [facility] Work Phone: 12-25-2020 COVID-19 Vaccine Moderna - Documentation Purposes Only Blas Ortiz Other [place] 11-28-2020 Moderna COVID-19 Vaccine 100 MCG/0.5ML Intramuscular Suspension Charan Casey Work Phone: [place] 08-30-2019 influenza virus vaccine, unspecified formulation Charan Dani Brysonbryn Work Phone: [facility] [employer] DO Work Phone: 08-30-2019 influenza, injectabl e, quadrivalent, preservative free Shaina Munroe DO Work Phone: [facility] 08-30-2019 influenza, seasonal, injectable Blas Erastoerika Other [place] 08-30-2018 influenza, seasonal, injectable Blas Erastoerika Other [place] 08-30-2018 influenza, seasonal, injectable, preservative free Shaina Munroe DO Work Phone: [facility] 12-02-2016 influenza virus vaccine, unspecified formulation DO Charan Masseybryn Work Phone: [place] 12-02-2016 influenza, seasonal, injectable, preservative free Charanheather Casey Work Phone: [facility] 250 DO Work Phone: 12-02-2016 pneumococcal conjuga te vaccine, 13 valent Blas Ortiz Other [place] 12-02-2016 influenza, high dose seasonal, preservative-free Blas Ortiz Other [facility] [employer] Other 12-02-2016 influenza, injectabl e, quadrivalent, preservative free Renée Watts Other [employer] Other 11-30-2016 pneumococcal polysaccharide vaccine, 23 valent Charan Casey [facility] [employer] DO Work Phone: 10-15-2016 pneumococcal polysaccharide vaccine, 23 valent Charan Casey Work Phone: [facility] 09-08-2012 influenza virus vaccine, unspecified formulation DO Charan Casey Work Phone: [place] 09-08-2012 tetanus toxoid, reduced diphtheria toxoid, and acellular pertussis vaccine, adsorbed Blas Ortiz Other [place] 09-08-2012 influenza virus vaccine, split virus (incl. purified surface antigen) Blas Ortiz Other [employer] Other influenza virus vaccine, unspecified formulation Charan Casey [facility] Work Phone: Comment on above: 2009 NEGATED: Highlighted row has not occurred!09-07-2017 influenza, injectable,quadrivalen t, preservative free, pediatric Blas Ortiz Other [employer] Other Payers Date Payer Category Payer Unknown [id number] 2024 Medicare [facility] MEDICARE [facility] MEDICARE [id number] 2024-Present [id number] [place] [address] [id number]. [id number] 2024 Medicare (Managed Care) 1.2. [id number] 2024 Medicare [id number] 2022 Unknown 1960 Unknown [id number] 2.16.840.1.341002.3.579.2. 593 1960 Unknown [id number] 2.16.840.1.785849.3.579.2. 593 1960 Unknown [id number] 2.16.840.1.493981.3.579.2. 593 1960 Unknown [id number] 2.16.840.1.356720.3.579.2. 593 1960 Unknown [id number] 2.16.840.1.938036.3.579.2. 593 1960 Unknown [id number] 2.16.840.1.379149.3.579.2. 593 1960 Unknown [id number] 2.16.840.1.552805.3.579.2. 593 1960 Unknown [id number] 2.16.840.1.977102.3.579.2. 593 1960 Unknown [id number] 2.16.840.1.681519.3.579.2. 593 1960 Unknown [id number] 2.16.840.1.427305.3.579.2. 593 1960 Unknown [id number] 2.16.840.1.886525.3.579.2. 593 1960 Unknown [id number] 2.16.840.1.029013.3.579.2. 593 1960 Unknown [id number] 2.16.840.1.299404.3.579.2. 356 1960 Unknown [id number] 2.16.840.1.750486.3.579.2. 356 1960 Unknown [id number] 2.16.840.1.114888.3.579.2. 1244 1960 Unknown [id number] 2.16.840.1.733260.3.579.2. 1259 1960 Unknown [id number] 2.16.840.1.224279.3.579.2. 1259 1960 Unknown [id number] 2.16.840.1.132336.3.579.2. 1259 1960 Unknown [id number] 2.16.840.1.356679.3.579.2. 1259 1959 Unknown [id number] 2.16.840.1.649666.19 Medicare Medicare [id number] Self-pay Self Pay [id number] Social History Date Type Detail Facility Start: 12-04-2023 End: 07-26-2025 Occasional caffeine consumption Occasional caffeine consumption [facility] Comment on above: Coffee; Start: 12-04-2023 End: 07-26-2025 Sex Assigned At [facility] Start: 07-27-2022 End: 05-19-2023 Tobacco smoking status NHIS Never smoked tobacco (finding) [place] Start: 1960 Sex Assigned At Female F [facility] Start: 05-19-2023 End: 12-04-2023 Tobacco use and exposure Smokeless tobacco non-user [facility] Work Phone: Start: 12-04-2023 End: 07-27-2025 Alcohol intake Lifetime non-drinker (finding) [facility] Work Phone: Start: 1960 Sex Assigned At Not on file U [facility] Work Phone: Start: 02-12-2024 End: 08-25-2024 Exposure to SARS-CoV-2 (event) Not sure [facility] Start: 10-19-2024 End: 04-11-2025 Sex Female (finding) [place] Do you belong to any clubs or organizations such as judaism groups, unions, fraternal or athletic groups, or [...] lumbar, XLIF Orthopaedic bone screw, non-bioabsorbable, non-sterile [id number] FDA Start: 07-25-2020 Fusion, spine, lumbar, XLIF Bone-screw internal spinal fixation system, non-sterile [id number] FDA Start: 07-25-2020 Fusion, spine, lumbar, XLIF STRATOFUSE DBM [id number] FDA Start: 07-25-2020 Fusion, spine, lumbar, XLIF TIMBERLINE INTERBODY FDA Start: 07-25-2020 Fusion, spine, lumbar, XLIF Spinal fusion graft kit [id number] FDA Start: 07-25-2020 Fusion, spine, lumbar, XLIF Bone-screw internal spinal fixation system, non-sterile [id number] FDA Start: 07-25-2020 Fusion, spine, lumbar, XLIF [...] lumbar, XLIF TIMBERLINE INTERBODY FDA Start: 07-25-2020 [id number] Start: 08-11-2013 End: 07-26-2026 Drug-eluting coronary artery stent, hvk-rtulxkagtsrsl-kl lymer-coated [id number] FDA Start: 03-27-2022 Femoral artery closure plug/patch, synthetic polymer [id number] FDA Start: 03-27-2022 Pen Needle, Diab etic [...] [facility] ionnaire 2 item (PHQ-2) [Reported] [facility] Clinical Notes 12-31-2014 to 07-27-2025 Shaina Munroe DO - 07/27/2025 9:29 AM EDTAjohn Munroe, DO - 07/27/2025 8:15 AM EDT Note Date & Type Note Facility 07-27-2025 History of Presen t illness Narrative Associated Problem(s): Type 2 diabetes mellitus with peripheral [...] Rita Cobb control is stable overall. , Will stay [...] the risk for her having low bg. Images from the original note were not [...] joint arthropathy (HCC) Long-term insulin use (HCC) Spondylolisthesis at L3-L4 level S/P laparoscopic cholecystectomy Other hammer toe(s) (acquired), left foot Chronic foot ulcer (HCC) Carpal tunnel syndrome of right wrist Class 2 severe obesity with serious comorbidity and body mass index (BMI) of 35.0 to 35.9 in adult ([facility] Type 2 diabetes mellitus with both eyes affected by mild nonproliferative retinopathy without macular edema, with long-term current use of insulin ([facility]) Social History Tobacco Use Smoking status: Never [...] (max daily 50 units) (100 UNIT/ML SOPN) Labs [facility] HEMOGLOBIN A1C/HEMOGLOBIN.TOTAL:MFR:PT:BLD:QN: 8.1 Outpatient prescription Medication marked as long-term The ASCVD Risk score (Medford DK, et al., 2019) failed to calculate for [...] Heart Rate 65 67 74 Temp 97.5 F 97.2 F 97.7 F Height (in) 5' 6 5' 6 [...] Rita Cobb control is stable overall. , Will stay [...] Charcot's joint arthropathy (HCC) Long-term insulin use ([facility]) Class 2 severe obesity with serious comorbidity and body mass index (BMI) of 35.0 to 35.9 in adult ([facility]) Type 2 diabetes mellitus with both eyes affected by mild nonproliferative retinopathy without macular edema, with long-term current use of insulin ([facility]) Follow up in about 3 months (around [...] PO) Take by mouth CONTINUOUS BLOOD GLUC DIRECTOR SOFTWARE (DEXCOM G7 DIRECTOR SOFTWARE) DEVICE USE DIRECTED CONTINUOUS BLOOD GLUC SENSOR [...] 200 UNIT/ML INJECTION insulin degludec (Tresiba FlexTouch) 200 UNIT/ML injection Inject 30 Units under the skin Daily Inject 60 Units under the skin Daily Discontinued Medications No medications on file I have reviewed and reconciled the history and medication list with the patient today. documented in this encounter [facility] 05-31-2025 Evaluation note Diagnosis Onset Date Resolution Chronic pain acute May 31 8:03am Sacroiliitis, not elsewhere classified acute May 31 8:03am Trochanteric bursitis acute May 8:03am [facility] Work Phone: 1(561) 720-247707-02-2025 Evaluation note* Diagnosis Onset Date Resolution Status Admit Date Chronic pain acute May 31 8:03am Sacroiliitis, not elsewhere classified acute May 31, 2025 8 :03am Trochanteric bursitis acute May 8:03am Chronic pain acute June 21, 025 9:03am Sacroiliitis, not elsewhere classified acute June 21, 2025 9:03am Trochanteric bursitis acute May 9:03am [facility] Work Phone: 1(122) 393-347507-02-2025 Evaluation note* Diagnosis Onset Date Resolution Status Admit Date Chronic pain acute May 31 8:03am Sacroiliitis, not elsewhere classified acute May 31, 2025 8 :03am Trochanteric bursitis acute May 8:03am Chronic pain acute June 21, 025 9:03am Sacroiliitis, not elsewhere classified acute June 21, 2025 9:03am Trochanteric bursitis acute May 9:03am Diabetic foot ulcer associat ed with type 2 diabetes mellitus, with fat laye acute July 12 7:36am MRSA bacteremia acute July 122024 7:36am Oral thrush acute July 12, 2025 7:36am [facility] Work Phone: 1(248) 204-671206-16-2025 History of Present illness Narrative* Shaina Munroe, - 05/15/2025 11:07 AM EDTAssociated Problem(s): Type [...] with a Dexcom G7 CGM - linked. Bg hold steady [...] joint arthropathy (HCC) Long-term insulin use (HCC) Spondylolisthesis at L3-L4 level S/P laparoscopic cholecystectomy Other hammer toe(s) (acquired), left foot Chronic foot ulcer (HCC) Carpal tunnel syndrome of right wrist Class 2 severe obesity with serious comorbidity and body mass index (BMI) of 35.0 to 35.9 in adult ([facility]) Type 2 diabetes mellitus with both eyes affected by mild nonproliferative retinopathy without macular edema, with long-term current use of insulin ([facility]) Social History Tobacco Use Smoking status: Never [...] units dinner (500 UNIT/ML SOPN) -Discontinued Labs [facility] HEMOGLOBIN A1C/HEMOGLOBIN.TOTAL:MFR:PT:BLD:QN: 8.1 Outpatient prescription Medication marked as long-term Patient taking a medication differently The ASCVD Risk score (Johnnie DK, et al., 2019) failed to calculate for [...] KWIKPEN) 100 UNIT/ML injection insulin pen needle (Aero [employer] Unifine Pentips) 31G X 8 mm misc Other Relevant Orders POCT glycosylated hemoglobin (Hb A1C) docked device (Completed) 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) - Primary Long-term insulin use (HCC) Class 2 severe obesity with serious comorbidity and body mass index (BMI) of 35.0 to 35.9 in adult ([facility]) Type 2 diabetes mellitus with both eyes affected by mild nonproliferative retinopathy without macular edema, with long-term current use of insulin ([facility]) Follow up in about 3 months (around [...] PO) Take by mouth CONTINUOUS BLOOD GLUC DIRECTOR SOFTWARE (DEXCOM G7 DIRECTOR SOFTWARE) DEVICE USE DIRECTED CONTINUOUS BLOOD GLUC SENSOR [...] 100 units) INSULIN PEN NEEDLE ([employer] UNIAirgainE PENTIPS) 31G X 8 MM MISC Drug Axis Unifine Pentips 31G X 8 MMmisc Injection subcutaneous tid USE DIRECTED Discontinued Medications No medications on file I have reviewed and reconciled the history and medication list with the patient today. documented in [facility] [id number] Evaluation note* Diagnosis Onset Date Resolution Status [...] 2025 8:03am Trochanteric bursitis acute May 8:03am [facility] Work Phone: 1(133) 482-132902-19-2025 Evaluation note* Diagnosis Onset Date Resolution Status Admit Date Chronic pain acute December 8:00am Osteoarthritis of spine with radiculopathy, lumbar region acute Dec ruary 2024 8:00am Other low back pain [...] 16, 2025 9:32am Trochanteric bursitis acute Jan 2024 9:32am CKD (chronic kidney disease) stage 2, GFR 60-89 ml/min acute March 06, 2025 7:41am Constipation acute March 06, 2 025 7:41am Diabetic neuropathy acute March 06, 2025 7:41am Family history of dementia acute March 06, 2025 7:41am Rotator cuff syndrome of rig ht shoulder acute March 06, 2025 7:41am Spondylolisthesis, lumbar region acu te March 06, 2025 7:41am [facility] Work Phone: 1(966) 338-117202-10-2025 Evaluation note* Author France Carlson [place] Authored January 09, 2025 11:30am The above note written by ITZ Canchloa acting as human recorder, note dictated by Dr. Charan Casey. [facility] Work Phone: 1([phone]) 739-698902-10-2025 Telephone encounter Note* Telephone Encounter - Kati Clint - 01/09/2025 1:09 PM EST Pt's spouse called to ask if Dr. Merritt has any dexcom G7 sensors. She has been without for over aweek. Her prescription has been delayed due to insurance issues, She is having an injection tomorrow and is worried about her bg readings. [facility] [id number] Miscellaneous Notes* Telephone Encounter - Kati Jaramillo - 01/09/2025 1:09 PM EST Pt's spouse called to ask if Dr. Merritt has any dexcom G7 sensors. She has been without for over aweek. Her prescription has been delayed due to insurance issues, She is having an injection tomorrow and is worried about her bg readings. documented in this encounterNOBarton County [facility] [id number] Evaluation note* Author France Carlson [place] Authored January 09, 2025 10:30am The above note written by ITZ Canchola acting as human recorder, note dictated by Dr. Charan Casey. [facility] Work Phone: 1([phone]) 786-326611-20-2024 Evaluation note* Diagnosis Onset Date Resolution Status [...] with radiculopathy, lumbar region acute Nov 9:01am [facility] Work Phone: 1(898) 999-304311-20-2024 Evaluation note* Diagnosis Onset Date Resolution Status Admit Date Chronic pain acute September 8:01am Osteoarthritis of spine with radiculopathy, lumbar region acute Sep 8:01am Arthrosis of right acromioclavicular joint acute October 25, 2024 8:44am Rotator cuff syndrome of rig ht shoulder acute October 25 8:44am Cough acute December 09, 2024 10:00am Chronic pain acute November 9:01am Osteoarthritis of spine with radiculopathy, lumbar region acute Nov 9:01am Arthrosis of right acromioclavicular joint acute December 29, 2024 7:33am Rotator cuff syndrome of rig ht shoulder acute December 29 7:33am [facility] Work Phone: 1(268) 879-555811-19-2024 History of Present illness Narrative* Shaina Munore, - 10/18/2024 8:35 PM ESTAssociated Problem(s): Type [...] levels elevate. Under more stress with her [employer] [place]. Diet: low carb, increase protein Drinks: water, [...] joint arthropathy (CMS/HCC) Long-term insulin use (CMS/HCC) Spondylolisthesis at L3-L4 level S/P laparoscopic cholecystectomy Other hammer toe(s) (acquired), left foot Chronic foot ulcer (CMS/HCC) Carpal tunnel syndrome of right wrist Class 2 severe obesity with serious comorbidity and body mass index (BMI) of 39.0 to 39.9 in adult ([facility]) Type 2 diabetes mellitus with both eyes affected by mild nonproliferative retinopathy without macular edema, with long-term current use of insulin ([facility]) Social History Tobacco Use Smoking status: Never [...] Type 2 diabetes mellitus with peripheral neuropathy ([facility]/HCC) - Primary During the appointment today all [...] 2 diabetes mellitus with Charcot's joint arthropathy ([facility]/HCC) Long-term insulin use ([facility]) Class 2 severe obesity with serious comorbidity and body mass index (BMI) of 39.0 to 39.9 in adult ([facility]) Type 2 diabetes mellitus with both eyes affected by mild nonproliferative retinopathy without macular edema, with long-term current use of insulin ([facility]) Follow up in about 4 months (around 02/14/2025) for Recheck. Patient's Medications New Prescriptions No medications on file Previous Medications ALLOPURINOL (ZYLOPRIM) 100 MG TABLET Take 100 mg by mouth in the morning. ASPIRIN 81 MG CHEWABLE TABLET 1 (one) time each day at the same time. BENICAR 40 MG TABLET 1 (one) time each day at the same time. CONTINUOUS BLOOD GLUC DIRECTOR SOFTWARE (DEXCOM G7 DIRECTOR SOFTWARE) DEVICE USE DIRECTED CONTINUOUS BLOOD GLUC SENSOR (DEXCOM G7 SENSOR) [facility], CHANGE EVERY 10 DAYS GNP [...] with the patient today. documented in this encounterHedrick Medical [id number] [place]10-14-2024 Evaluation note* Diagnosis Onset Date Resolution Status Admit Date Chronic pain acute August 8:03am Osteoarthritis of spine with radiculopathy, lumbar region acute Aug 8:03am Sacroiliitis, not elsewhere classified acute September 12 8:03am Chronic pain acute September 8:01am Osteoarthritis of spine with radiculopathy, lumbar region acute Sep 8:01am [facility] Work Phone: 1([phone]) 316-890510-14-2024 Evaluation note* Diagnosis Onset Date Resolution Status [...] shoulder acute October 25, 2 024 8:44am [facility] Work Phone: 1(329) 576-620110-14-2024 Evaluation note* Diagnosis Onset Date Resolution Status [...] 8:44am Cough acute December 09, 2024 10:00am [facility] Work Phone: 1(206) 676-699409-26-2024 History of Present illness Narrative* Rosalinda Torres [...] remains way above target and due to Omfkghg-Taqxd-Mzucm joints she has limited exercise capacity. Her [...] machine patient has been compliant with it. 0-Kolreox-Nzijf-Tooth joint in the ankles status post recent [...] , Rfl: ergocalciferol (Vitamin D-2) 1.25 MG (13677 UT) capsule, Take 1 capsule (50,000 Units) [...] type, unspecified whether angina present, unspecified whether [place] or transplanted heart Follow Up In Cardiology [...] Scribe Attestation By signing my name below, Enedina Hutchison LPN, Scribe attest that this documentation has [...] exam, discussion and plan. documented in this [facility] Work Phone: 1(751) 948-171709-26-2024 Instructions* Patient Instructions* Enedina Isidro LPN - [...] Provided instructions on exercise. documented in this [facility] Work Phone: 1(242) 640-134507-02-2024 [place] noteCent[place]03-25-2024 History of Present illness Narrative* Rosalinda Torres [...] She has orthopedic problems resulting from her Sgskekh-Qmcup-Lxtiz disease. Her labs have been followed closely. [...] machine patient has been compliant with it. 2-Eykuuqm-Wzoim-Tooth joint in the ankles status post recent [...] , Rfl: ergocalciferol (Vitamin D-2) 1.25 MG (20676 UT) capsule, Take 1 capsule (50,000 Units) [...] type, unspecified whether angina present, unspecified whether [place] or transplanted heart Follow Up In Cardiology 2. Essential hypertension 3. 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 4. Hyperlipidemia, unspecified hyperlipidemia type 5. Obstructive sleep apnea syndrome 6. Class 2 obesity with body mass index (BMI) of 37.0 to 37.9 in adult, unspecified obesity type, unspecified whether serious comorbidity present 7. Insulin-requiring or dependent type II diabetes mellitus ([facility]) Scribe Attestation By signing my name below, Enedina Htuchison LPN, Scribe attest that this documentation has been prepared under the direction and in the presence of Rosalinda Torres MD. Provider Attestation - Scribe documentation All medical record entries made by the Scribe were at my direction and personally dictated by me. Yazmin reviewed the chart and agree that the record accurately reflects my personal performance of the history, physical exam, discussion and plan. documented in this [facility] Work Phone: 1(249) 454-563003-25-2024 Instructions* Patient Instructions* Enedina Isidro LPN - [...] 6 m Same medications [facility]: 1(303) 644-428701-31-2024 Evaluation note* Encounter Date Diagnosis Assessment Notes [...] to call if she does not improve. [employer] Other 12-05-2023 Evaluation note* Encounter Date Diagnosis Assessment Notes Treatment Notes Treatment Clinical Notes Oct, Hyperlipidemia (ICD-10 - E78.5) [employer] Other 11-29-2023 Evaluation note* Encounter Date Diagnosis Assessment Notes Treatment Notes Treatment Clinical Notes Sep, Trochanteric bursitis of left hip (ICD-10 - M70.62) [employer] Other 11-29-2023 Evaluation note* Encounter Date Diagnosis [...] note writ ten by Willi Leiva MA, Machine Ironer. Edited and approved by Dr. Blas Ortiz MD. [employer] Other 11-22-2023 Evaluation note* Encounter Date Diagnosis [...] of symptoms occur by end of treatment. [employer] Other 11-20-2023 Evaluation note* Encounter Date Diagnosis Assessment Notes Treatment Notes Treatment Clinical Notes Sep, Cervical spondylosis without myelopathy (ICD-10 - M47.812) [employer] Other 11-08-2023 Evaluation note* Encounter Date Diagnosis Assessment Notes Treatment Notes Treatment Clinical Notes Sep, Hypertensive chronic kidney disease with stage 1 through stage 4 chronic kidney disease, or unspecified chronic kidney disease (ICD-10 - I12.9) [employer] Other 11-07-2023 History and physical note Author Yasmeen Traedwell [place] October 06, 2023 8:31am Note Date/Time October 06, 2023 8 :31am [facility] [address] [place] [address] Gastroenterology H&P Signed Patient: Rita Cobb MR#: [id number] 365 : 1960 Acct:[id number] Age/Sex: 62 / F Adm Date: 3 Loc: Room: Type: [facility] Attending Dr: Yasmeen Treadwell MD Copies to: hCaran Casey,DO Yasmeen Treadwell MD~ Date of Service: [...] <Electronically signed by Yasmeen Treadwell MD> 10/06/23830 [facility] Work Phone: [phone]) 936-555211-07-2023 [place]Cent[place]10-25-2023 Evaluation note* Encounter Date Diagnosis Assessment Notes [...] note writ ten by Corina Sánchez LPN, Machine Ironer. Edited and approved by Dr. Blas Ortiz MD. [facility] Other 10-17-2023 Evaluation note* Encounter Date Diagnosis [...] risk of worsening renal function and hematuria. [facility] Other 09-19-2023 Evaluation note* Encounter Date Diagnosis Assessment Notes Treatment Notes Treatment Clinical Notes Jul, Hyperuricemia (ICD-1 0 - E79.0) Jul, Diabetic neuropathy (ICD-10 - E11.40) [facility] Other 09-18-2023 Evaluation note* Encounter Date Diagnosis [...] note writ ten by Corina Sánchez LPN, Machine Ironer. Edited and approved by Dr. Blas Ortiz MD. [facility] Other 09-12-2023 Evaluation note* Encounter Date Diagnosis [...] Low back pain, unspecified (ICD-10 - M54.50) [facility] Other 09-06-2023 Evaluation note* Encounter Date Diagnosis [...] encouraged patient to follow up with Dr. Casrto as scheduled Jul, Screening for colon cancer (ICD-10 - Z12.11) [facility] Other 08-03-2023 Evaluation note* Encounter Date Diagnosis Assessment Notes Treatment Notes Treatment Clinical Notes Jun, Type 2 diabetes mellitus with diabetic neuropathy, unspecified (ICD-10 - E11.40) [facility] Other 06-20-2023 Evaluation note* Encounter Date Diagnosis [...] Patient is to continue to follow with Tondra Mapus as scheduled. Apr, Cervical spondylosis without myelopathy (ICD-10 - M47.812) Refill provided of the above medication. [facility] Other 06-06-2023 Evaluation note* Encounter Date Diagnosis Assessment Notes Treatment Notes Treatment Clinical Notes Apr, Type 2 diabetes mellitus with diabetic neuropathy, unspecified (ICD-10 - E11.40) [facility] Other 05-15-2023 NotePROCEDURE: XR FOOT LT 2V HISTORY: Pain COMPARISON: XR foot left 04/07/2023 FINDINGS: BONES:Several intraoperative spot fluoroscopic images demonstrate removal of 3 separate lag screws fixating the second and fourth metatarsophalangeal joints. SOFT TISSUES:Expected intraoperative findings. OTHER: Negative. IMPRESSION: 1. Hardware revision involving left midfoot. Electronically authenticated by: BLANKA OLGUIN Date: 2023-04-13 11:35[facility]05-15-2023 NotePROCEDURE: XR FOOT LT MIN 3 VIEWS [...] Electronically authenticated by: BLANKA OLGUIN Date: 2023-04-13 11:29[facility]05-09-2023 NotePROCEDURE: XR FOOT LT MIN 3 VIEWS [...] Electronically authenticated by: BLANKA OLGUIN Date: 2023-04-07 13:31[facility]05-08-2023 Evaluation note* Encounter Date Diagnosis Assessment Notes Treatment Notes Treatment Clinical Notes March, Type 2 diabetes mellitus with diabetic neuropathy, unspecified (ICD-10 - E11.40) March, Type 2 diabetes mellitus with hyperglycemia, without long-term current use of insulin (ICD-10 - E11.65) [facility] Other 05-02-2023 Evaluation note* Encounter Date Diagnosis [...] as scheduled. Most recent A1C was 7.0. [facility] Other 04-27-2023 Evaluation note* Encounter Date Diagnosis Assessment Notes Treatment Notes Treatment Clinical Notes Feb, Hypertensive chronic kidney disease with stage 1 through stage 4 chronic kidney disease, or unspecified chronic kidney disease (ICD-10 - I12.9) Feb, Type 2 diabetes mellitus with diabetic neuropathy, unspecified (ICD-10 - E11.40) [facility] Other 04-11-2023 Evaluation note* Encounter Date Diagnosis [...] have advised to continue with oral magnesium. [facility] Other 04-05-2023 Evaluation note* Encounter Date Diagnosis Assessment Notes Treatment Notes Treatment Clinical Notes Feb, Hyperlipidemia (ICD-10 - E78.5) [facility] Other 04-05-2023 Evaluation note* Encounter Date Diagnosis Assessment Notes Treatment Notes Treatment Clinical Notes Feb, Obstructive apnea (ICD-10 - G47.33) Feb, Insomnia (ICD-10 - G47.00) Feb, Neuropathy (ICD-10 - G62.9) [facility] Other 04-05-2023 NotePROCEDURE: XR FOOT LT MIN [...] Electronically authenticated by: BLANKA OLGUIN Date: 2023-03-04 06:39[facility]03-20-2023 Evaluation note* Encounter Date Diagnosis Assessment Notes Treatment Notes Treatment Clinical Notes Jan, Hypertensive chronic kidney disease with stage 1 through stage 4 chronic kidney disease, or unspecified chronic kidney disease (ICD-10 - I12.9) Jan, Diabetic neuropathy (ICD-10 - E11.40) [facility] Other 03-09-2023 Evaluation note* Encounter Date Diagnosis Assessment Notes Treatment Notes Treatment Clinical Notes Jan, Hyperuricemia (ICD-1 0 - E79.0) [facility] Other 03-08-2023 NotePROCEDURE: XR FOOT LT MIN [...] Electronically authenticated by: BRODERICK FLOR Date: 2023-02-04 09:36[facility]02-22-2023 NotePROCEDURE: XR FOOT LT MIN 3 VIEWS [...] Electronically authenticated by: BLANKA OLGUIN Date: 2023-01-21 10:26[facility]02-20-2023 Evaluation note* Encounter Date Diagnosis Assessment Notes Treatment Notes Treatment Clinical Notes Dec, Diabetic neuropathy (ICD-10 - E11.40) [facility] Other 01-30-2023 NotePROCEDURE: XR FOOT LT MIN 3 VIEWS, [...] Electronically authenticated by: BLANKA OLGUIN Date: 2022-12-29 17:33[facility]01-30-2023 NotePROCEDURE: XR FOOT LT MIN 3 VIEWS, [...] Electronically authenticated by: BLANKA OLGUIN Date: 2022-12-29 17:33[id number] NotePROCEDURE: XR FOOT LT 2V HISTORY: Pain COMPARISON: XR foot bilateral 11/12/2022 FINDINGS: BONES:Multiple intraoperative spot fluoroscopic images demonstrate resection of the bases of the metatarsals followed by midfoot fusion via lag screws. Talocalcaneal fusion. SOFT TISSUES:Expected intraoperative findings. IMPRESSION: 1. Midfoot resection and fusion. 2. Talocalcaneal fusion. Electronically authenticated by: BLANKA OLGUIN Date: 2022-12-29 17:31[facility]01-24-2023 NoteEXAM: XR CHEST 2 V HISTORY: Pre-surgery [...] Electronically authenticated by: ACOSTA JOHNSON Date: 2022-12-23 12:48[facility]11-29-2022 Evaluation note* Encounter Date Diagnosis Assessment Notes Treatment Notes Treatment Clinical Notes Sep, Encounter for immunization (ICD-10 - Z23) Patient presents today for Shingrix vaccination #1 of 2. Patient denies current acute illness, denies any past allergy or serious reaction to previousvaccine or ingredients. Shingrix Vaccine material and current VIS discussed and provided to patient. [facility] Other [id number] Evaluation note* Encounter Date Diagnosis Assessment Notes Treatment Notes Treatment Clinical Notes Sep, Encounter for immunization (ICD-10 - Z23) Patient denies current illness, previous allergic reaction to influenza vaccine, eggs, or other vaccines, and Guillain-Preston Syndrome. Patient given current editions of influenza Vaccine Information Statement (VIS). [facility] Other 11-17-2022 Evaluation note* Encounter Date Diagnosis Assessment Notes Treatment Notes Treatment Clinical Notes Sep, Hypertensive chronic kidney disease with stage 1 through stage 4 chronic kidney disease, or unspecified chronic kidney disease (ICD-10 - I12.9) [facility] Other 11-17-2022 Evaluation note* Encounter Date Diagnosis Assessment Notes Treatment Notes Treatment Clinical Notes Sep, Encounter for immunization (ICD-10 - Z23) Patient presents today for COVID-19 vaccination booster. Patient pre-vaccination form answers reviewed. Patient denies current illness or allergic reaction to any component of a COVD-19 vaccine. Patient provided with copy of current EUA. [facility] Other 10-26-2022 Evaluation note* Encounter Date Diagnosis [...] her to take a low phosphorus diet. [facility] Other 10-04-2022 Evaluation note* Encounter Date Diagnosis [...] E11.40) Pateint continues on the above medications. [facility] Other 09-08-2022 Evaluation note* Encounter Date Diagnosis Assessment Notes Treatment Notes Treatment Clinical Notes Jul, Diabetic neuropathy (ICD-10 - E11.40) [facility] Other 08-17-2022 Evaluation note* Encounter Date Diagnosis Assessment Notes Treatment Notes Treatment Clinical Notes Jun, Hyperlipidemia (ICD-10 - E78.5) Jun, CKD (chronic kidney disease) stage 3, GFR 30-59 ml/min (ICD-10 - N18.3) Jun, Essential hypertension (ICD-10 - I10) [facility] Other 08-03-2022 Evaluation note* Encounter Date Diagnosis Assessment Notes Treatment Notes Treatment Clinical Notes Jun, Type 2 diabetes mellitus with diabetic neuropathy, unspecified (ICD-10 - E11.40) [facility] Other 06-01-2022 Evaluation note* Encounter Date Diagnosis Assessment Notes Treatment Notes Treatment Clinical Notes Apr, Obstructive apnea (ICD-10 - G47.33) Apr, Insomnia (ICD-10 - G47.00) Apr, Neuropathy (ICD-10 - G62.9) [facility] Other 05-16-2022 Evaluation note* Encounter Date Diagnosis [...] Patient is to continue to follow with ict support engineer as scheduled. March, Shortness of breath (ICD-10 - R06.02) Patient is to continue to follow with the ict support engineer as scheduled. March, Parathyroid disease (ICD-10 - E21.5) Patient is to continue to follow with the specialist as scheduled. March, Charcot foot due to diabetes mellitus (ICD-10 - E11.610) Patient is to continue to follow with as scheduled. [facility] Other 05-09-2022 Evaluation note* Encounter Date Diagnosis Assessment Notes Treatment Notes Treatment Clinical Notes March, Type 2 diabetes mellitus with diabetic neuropathy, unspecified (ICD-10 - E11.40) March, Type 2 diabetes mellitus with hyperglycemia, without long-term current use of insulin (ICD-10 - E11.65) [facility] Other 03-24-2022 Evaluation note* Encounter Date Diagnosis [...] her to take a low phosphorus diet. [facility] Other 03-11-2022 Evaluation note* Encounter Date Diagnosis [...] her symptoms worsen. 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 I did provide a work note excuse today. Jan, Shortness of breath (ICD-10 - R06.02) In house EKG ordered and reviewed. Cardiac consult recommended as above. Jan, Diabetic neuropathy (ICD-10 - E11.40) Worsening bilateral neuropathy reported by the patient . she has been consulting with application spec who per patient has suggested it may [...] The patient encourged to follow up with supervisor coin machine as scheduled, discussion was had she would benefit from a pulmonary function test. [facility] Other 02-22-2022 Evaluation note* Encounter Date Diagnosis Assessment Notes Treatment Notes Treatment Clinical Notes Dec, Type 2 diabetes mellitus with diabetic neuropathy, unspecified (ICD-10 - E11.40) [facility] Other 01-04-2022 Evaluation note* Encounter Date Diagnosis [...] deficiency (ICD-10 - E55.9) Blood work ordered. [facility] Other 02-01-2015 History general Narrative - Reported* [...] necrotizing fasciitis 2017 Hospitalization History see above [facility] Other 02-01-2015 History general Narrative - Reported* [...] necrotizing fasciitis 2017 Hospitalization History see above [facility] Other 02-01-2015 History general Narrative - Reported* [...] cologuard) Medical History 05/2019 Pap w/ Dr. aPtel Medical History Skin ulcer of left f [...] necrotizing fasciitis 2017 Hospitalization History see above [facility] Other 02-01-2015 History general Narrative - Reported* [...] necrotizing fasciitis 2017 Hospitalization History see above [facility] Other 02-01-2015 History general Narrative - Reported* [...] necrotizing fasciitis 2017 Hospitalization History see above [facility] Other 02-01-2015 History general Narrative - Reported* [...] necrotizing fasciitis 2017 Hospitalization History see above [facility] Other 02-01-2015 History general Narrative - Reported* [...] necrotizing fasciitis 2017 Hospitalization History see above [employer] Other Evaluation noteNort [employer] Other Evaluation noteNo InformationNort [employer] Other Evaluation noteNort [employer] Other evaluation noteNo assessment information available [facility] Work Phone: Evaluation note* Diagnosis Coronary artery disease, unspecified vessel or lesion type, unspecified whether angina present, unspecified whether [place] or transplanted heart- Primary Essential hypertension Unspecified essential hypertension 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 Hyperlipidemia, unspecified hyperlipidemia type Obstructive sleep apnea syndrome Obstructive sleep apnea (adult) (pediatric) Class 2 obesity with body mass index (BMI) of 37.0 to 37.9 in adult, unspecified obesity type, unspecified whether serious comorbidity present Insulin-requiring or dependent type II diabetes mellitus ([facility] [place]) Type II or unspecified type diabetes mellitus without mention of complication, not stated as uncontrolled documented in this encounter [facility] Work Phone: Evaluation note* Diagnosis Onset Date Resolution Status Chronic pain acute Inflammation of sacroiliac joint acute Osteoarthritis of spine with radiculopathy, lumbar region acute Trochanteric bursitis acute [facility] Work Phone: Evaluation note* Diagnosis Onset Date Resolution Status Chronic pain acute Inflammation of sacroiliac joint acute Osteoarthritis of spine with radiculopathy, lumbar region acute Trochanteric bursitis acute CKD (chronic kidney disease) stage 3, GFR 30-59 ml/min acute Hyperlipidemia acute Hyperparathyroidism acute [id number] acute Hyperuricemia acute Hypomagnesemia acute Nephrolithiasis acute Type 2 diabetes mellitus wit h diabetic chronic kidney disease acute [facility] Work Phone: Evaluation note* Diagnosis Onset Date Resolution Status Chronic pain acute Inflammation of sacroiliac joint acute Osteoarthritis of spine with radiculopathy, lumbar region acute Trochanteric bursitis acute CKD (chronic kidney disease) stage 3, GFR 30-59 ml/min acute Hyperlipidemia acute Hyperparathyroidism acute [id number] acute Hyperuricemia acute Hypomagnesemia acute Nephrolithiasis acute Type 2 diabetes mellitus wit h diabetic chronic kidney disease acute Chronic pain acute Lumbar muscle pain acute Osteoarthritis of spine with radiculopathy, lumbar region acute [facility] Work Phone: evaluation note* Diagnosis Onset Date Resolution Status CKD (chronic kidney disease) stage 3, GFR 30-59 ml/min acute Hyperlipidemia acute Hyperparathyroidism acute [id number] acute Hyperuricemia acute Hypomagnesemia acute Nephrolithiasis acute Type 2 diabetes mellitus wit h diabetic chronic kidney disease acute Chronic pain acute Lumbar muscle pain acute Osteoarthritis of spine with radiculopathy, lumbar region acute Chronic pain acute Osteoarthritis of spine with radiculopathy, lumbar region acute Sacroiliitis, not elsewhere classified acute [facility] Work Phone: evaluation note* Diagnosis Onset Date Resolution Status Chronic pain acute Lumbar muscle pain acute Osteoarthritis of spine with radiculopathy, lumbar region acute Chronic pain acute Osteoarthritis of spine with radiculopathy, lumbar region acute Sacroiliitis, not elsewhere classified acute [facility] Work Phone: evaluation note* Diagnosis Onset Date Resolution Status Chronic pain acute Lumbar muscle pain acute Osteoarthritis of spine with radiculopathy, lumbar region acute Chronic pain acute Osteoarthritis of spine with radiculopathy, lumbar region acute Sacroiliitis, not elsewhere classified acute Obstructive apnea acute [facility] Work Phone: evaluation note* Diagnosis Onset Date Resolution Status Chronic pain acute Lumbar muscle pain acute Osteoarthritis of spine with radiculopathy, lumbar region acute Chronic pain acute Osteoarthritis of spine with radiculopathy, lumbar region acute Sacroiliitis, not elsewhere classified acute Obstructive apnea acute Chronic pain acute Osteoarthritis of spine with radiculopathy, lumbar region acute Sacroiliitis, not elsewhere classified acute [facility] Work Phone: evaluation note* Diagnosis Onset Date Resolution Status Chronic pain acute Osteoarthritis of spine with radiculopathy, lumbar region acute Sacroiliitis, not elsewhere classified acute [facility] Work Phone: Evaluation note* Diagnosis Type 2 diabetes mellitus with peripheral neuropathy ([facility]/HCC)- Primary 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 (CMS/HCC) Long-term insulin use ([facility] [place]) Class 2 severe obesity due to excess calories with serious comorbidity and body mass index (BMI) of 39.0 to 39.9 in adult ([facility] [place]) Type 2 diabetes mellitus with peripheral neuropathy ([facility]/HCC)- Primary 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 ([facility] [place]) Class 2 severe obesity due to excess calories with serious comorbidity and body mass index (BMI) of 39.0 to 39.9 in adult ([facility] [place]) Long-term insulin use ([facility] [place]) Spondylolisthesis at L3-L4 level Class 2 severe obesity due to excess calories with serious comorbidity and body mass index (BMI) of 38.0 to 38.9 in adult ([facility] [place])- Primary Type 2 diabetes mellitus with both eyes affected by mild nonproliferative retinopathy without macular edema, with long-term current use of insulin ([facility] [place]) Type 2 diabetes mellitus with peripheral neuropathy ([facility] [place]) 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 ([facility] [place]) Long-term insulin use ([facility] [place]) Type 2 diabetes mellitus with peripheral neuropathy ([facility] [place])- Primary 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 ([facility] [place]) Type 2 diabetes mellitus with both eyes affected by mild nonproliferative retinopathy without macular edema, with long-term current use of insulin ([facility] [place]) Long-term insulin use ([facility] [place]) Class 2 severe obesity due to excess calories with serious comorbidity and body mass index (BMI) of 39.0 to 39.9 in adult ([facility] [place]) documented in this encounter [facility] HealthcareEvaluation note* Diagnosis Coronary artery disease, unspecified vessel or lesion type, unspecified whether angina present, unspecified whether [place] or transplanted heart Elevated coronary artery calcium [...] serious comorbidity present documented in this encounter [facility] Work Phone: Evaluation note* Author France Carlson [place] Authored January 09, 2025 10:30am The above note written by ITZ Canchola acting as human recorder, note dictated by Dr. Charan Casey. 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) Class 2 severe obesity due to excess calories with serious comorbidity and body mass index (BMI) of 39.0 to 39.9 in adult ([facility]) Long-term insulin use (HCC) Spondylolisthesis at L3-L4 level Class 2 severe obesity due to excess calories with serious comorbidity and body mass index (BMI) of 38.0 to 38.9 in adult ([facility])- Primary Type 2 diabetes mellitus with both [...] (BMI) of 39.0 to 39.9 in adult ([facility]) 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 [...] (BMI) of 37.0 to 37.9 in adult ([facility] [place]) 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 [...] (BMI) of 35.0 to 35.9 in adult ([facility]) documented in this encounter [facility] HealthcareEvaluation note* Diagnosis Type 2 diabetes mellitus with peripheral neuropathy (HCC)- Primary 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) Long-term insulin use (HCC) Class 2 severe obesity due to excess calories with serious comorbidity and body mass index (BMI) of 39.0 to 39.9 in adult ([facility] [place]) Type 2 diabetes mellitus with peripheral neuropathy (HCC)- Primary 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) Class 2 severe obesity due to excess calories with serious comorbidity and body mass index (BMI) of 39.0 to 39.9 in adult ([facility]) Long-term insulin use ([facility]) Spondylolisthesis at L3-L4 level Class 2 severe obesity due to excess calories with serious comorbidity and body mass index (BMI) of 38.0 to 38.9 in adult ([facility])- Primary Type 2 diabetes mellitus with both [...] (BMI) of 39.0 to 39.9 in adult ([facility]) 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)- Primary Type 2 diabetes mellitus with peripheral neuropathy (HCC) Type 2 diabetes mellitus with both eyes affected by mild nonproliferative retinopathy without macular edema, with long-term current use of insulin (HCC) Long-term insulin use ([facility]) Class 2 severe obesity due to excess calories with serious comorbidity and body mass index (BMI) of 37.0 to 37.9 in adult ([facility]) 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 ([facility] [place])- Primary Type 2 diabetes mellitus with peripheral neuropathy ([facility] [place]) Type 2 diabetes mellitus with both eyes affected by mild nonproliferative retinopathy without macular edema, with long-term current use of insulin (HCC) Long-term insulin use ([facility]) Class 2 severe obesity due to excess calories with serious comorbidity and body mass index (BMI) of 35.0 to 35.9 in adult ([facility]) Type 2 diabetes mellitus with peripheral neuropathy (HCC)- Primary 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 ([facility] [place]) Type 2 diabetes mellitus with both eyes affected by mild nonproliferative retinopathy without macular edema, with long-term current use of insulin (HCC) Long-term insulin use ([facility] [place]) Class 2 severe obesity due to excess calories with serious comorbidity and body mass index (BMI) of 35.0 to 35.9 in adult ([facility]) [facility] N[facility]ative - ReportedLaunchr [facility] Other History general Narrative - [facility]orted[facility] Other Hospital Discharge instructions Additional Instructions DISCHARGE [...] NOT operate machinery such as power tools, [employer] mowers, snow blowers, sewing machines, etc. for [...] years. -Follow up with PCP. -Office number [phone]. [facility] Work Phone: Reason for referral (narrative)* Consultation (Routine) - Authorized Specialty Diagnoses / Procedures Referred By Contac t Referred To Contact Cardiology Diagnoses Coronary artery disease, unspecified vessel or lesion type, unspecified whether angina present, unspecified whether buckland or transplanted heart Procedures Follow Up In Cardiology Rosalinda Torres MD [address] [facility] 2, [address] [address] Rosalinda Torres MD [address] 2, [address] [address] Referral ID Status Reason Start Date Expiration Date V isits Requested Visits Authorized [id number] Authorized 02/22/2024 02/21/2025 1 1 [facility] Work Phone: reason for referral (narrative)* Consultation (Routine) - Authorized Specialty Diagnoses / Procedures Referred By Contac t Referred To Contact Cardiology Diagnoses Coronary artery disease, unspecified vessel or lesion type, unspecified whether angina present, unspecified whether buckland or transplanted heart Procedures Follow Up In Cardiology Rosalinda Torres MD [address] [place] [address] 2, [address] [address] Rosalinda Torres MD [address] [place] [address] 2, [facility] [address] [place] [address] Referral ID Status Reason Start Date Expiration Date V isits Requested Visits Authorized [id number] Authorized 08/25/2024 08/25/2025 1 1 [facility] Work Phone: reason for referral (narrative)No reason for referral [facility] Work Phone: Summary Purpose Family History No Family History Records FoundUnknown Family Member Name Dates Details Family history [...] Unknown paternal grandfather Dementia Unknown Advance Directives No Advanced Directives Records Found Advance Directive Response Recorded Date/ Time Advance [...] the patient is agreeable to go on dvropvyqvajq85 mg daily along with Zetia 10 mg [...] any trouble since her angioplasty. She has Philjbe-Ttkkg-Qkbwz disease and had recent surgery on the [...] has been compliant with it. * 7 Igxrezb-Fbwoe-Njeot joint in the ankles status post recent surgery on the left foot with plan to repair the right foot down the road Reason for Referral Reason Patient is need ing to having screening colonoscopy. Please schedule with [facility]. Patient DOES NOT want to see Dr. Bryant. Please call patient to schedule Diagnosis 1 Screening for colon cancer (Z12.11) Referral Organization [facility] [place] Referring Provider First Name Charan Referring Provider Last Name Jacinto Referring Provider Specialty Family Giancarlo pop Referred Organization [facility] Gastroenterolo gy Referred Provider Yasmeen Treadwell Referred Address [address] [facility] ,[place], [place],[address] Referred Provider Specialty Gastroentero logy Referral Priority Routine General Notes ForeRenée M 023 10:30:05 AM >Received today and sent P2P Reason stat consult and lou at Diagnosis 1 Chest pressure (R07. 89) Diagnosis 2 Shortness of breath (R06.02) Diagnosis 3 Type 2 diabetes wicho itus with diabetic neuropathy, unspecified (E11.40) Diagnosis 4 Obstructive apnea (G 47.33) Referral Organization [facility] [place] Referring Provider First Name Charan Referring Provider Last Name Jacinto Referring Provider Specialty Family Giancarlo lord Referred Organization [facility] Referred Address [address] [facility] [address],[place], [place],[address] Referred Provider Specialty Cardiology Referral Priority Stat [...] stage 3, GFR 30-59 ml/min Hyperlipidemia Hyperparathyroidism [id number] Hyperuricemia Hypomagnesemia Nephrolithiasis Type 2 diabetes mellitus [...] stage 3, GFR 30-59 ml/min Hyperlipidemia Hyperparathyroidism [id number] Hyperuricemia Hypomagnesemia Nephrolithiasis Type 2 diabetes mellitus [...] stage 3, GFR 30-59 ml/min Hyperlipidemia Hyperparathyroidism [id number] Hyperuricemia Hypomagnesemia Nephrolithiasis Type 2 diabetes mellitus [...] stage 3, GFR 30-59 ml/min Hyperlipidemia Hyperparathyroidism [id number] Hyperuricemia Hypomagnesemia Nephrolithiasis Type 2 diabetes mellitus [...] Date F/U CAUDAL EPIDURAL STEROID INJECTION No 2023 8:01am M25.511 - Pain in right [...] Date F/U CAUDAL EPIDURAL STEROID INJECTION No 2023 8:01am M25.511 - Pain in right [...] Shoulder January 26, 2025 9:45am MRI RESULTS [facility] January 26, 2025 12:50pm Reason for Visit [...] :33am dementia concerns; bone structure; SOB F [facility] 2024 9:06am F/U 2ND LUMB MBB January 18, 2025 8:00am M75.101 January 23, 2025 12:43pm MRI RESULTS [facility] January 26, 2025 12:50pm Rotator cuff syndrom R Shoulder January 8:30am LAURA LUMB RFA L3 L5/CJ February 01, 2025 12:29pm Chief Complaint Admit Date R05.9 December 08, 2024 10 :46am acute illness/ CXR ordered/ per Dr. Casey December 09, 2024 10:00am F/U 1st LAURA LUMBAR MBB December 26 9:01am 8 WK RECHECK December 29, 2024 7 :33am dementia concerns; bone structure; SOB [facility] 2024 9:06am F/U 2ND LUMB MBB January 18, 2025 8:00am M75.101 January 23, 2025 12:43pm MRI RESULTS [facility] January 26, 2025 12:50pm Rotator cuff syndrom [...] M75.101 January 23, 2025 12:43pm MRI RESULTS [facility] January 26, 2025 12:50pm Rotator cuff syndrom [...] M75.101 January 23, 2025 12:43pm MRI RESULTS [facility] January 26, 2025 12:50pm Rotator cuff syndrom [...] 8:03a m Sacroiliitis, not elsewhere classified [facility] 2024 8:03am Trochanteric bursitis May 31, 2025 [...] 8:03a m Sacroiliitis, not elsewhere classified [facility] 2024 8:03am Trochanteric bursitis May 31, 2025 8:0 3am Chronic pain June 21, 2025 9:03 am Sacroiliitis, not elsewhere classified [facility] 2024 9:03am Trochanteric bursitis June 21, 2025 9: 03am Chief Complaint Admit Date 3 May 31, 2025 8:03a m BILATERAL FOOT PAIN June 05, 2025 11:02 am LAURA SI JOINT INJECTION AND TROCH BURSA INJ /VW June 14, 2025 12:30pm F/U LAURA SI JOINT AND TROCH BURSA INJECTI ONS June 21, 2025 9:03am hos f/u July 12, 2025 7: 36am Reason for Visit Admit Date Chronic pain May 31, 2025 8:03a m Sacroiliitis, not elsewhere classified [facility] 2024 8:03am Trochanteric bursitis May 31, 2025 8:0 3am Chronic pain June 21, 2025 9:03 am Sacroiliitis, not elsewhere classified [facility] 2024 9:03am Trochanteric bursitis June 21, 2025 9: 03am Diabetic foot ulcer associat ed with type 2 diabetes mellitus, with fat laye July 12, 2025 7:36am MRSA bacteremia July 12, 2025 7: 36am Oral thrush July 12, 2025 7: 36am Additional Source Comments INFORMATION SOURCE (unrecogn ized section and content) DATE CREATED AUTHOR 07/28/2018 [facility] DATE CREATED AUTHOR AUTHOR'S ORGANIZ ATION 03/18/2022 [facility] DATE CREATED AUTHOR AUTHOR'S ORGANIZ ATION 10/17/2022 [facility] DATE CREATED AUTHOR AUTHOR'S ORGANIZ ATION 04/13/2023 [facility] DATE CREATED AUTHOR AUTHOR'S ORGANIZ ATION 05/08/2023 [facility] DATE CREATED AUTHOR AUTHOR'S ORGANIZ ATION 05/08/2023 [facility] DATE CREATED AUTHOR AUTHOR'S ORGANIZ ATION 02/23/2024 [facility] DATE CREATED AUTHOR AUTHOR'S ORGANIZ ATION 06/09/2025 [facility] DATE CREATED AUTHOR AUTHOR'S ORGANIZ ATION 07/29/2025 [facility] EPIC REASON FOR VISIT (unrecogniz ed section and content) Reason Comments Follow-up 6m Specialty Diagnoses / Procedures Referred By Princess bird Referred To Contact Cardiology Diagnoses Coronary artery disease, unspecified vessel or lesion type, unspecified whether angina present, unspecified whether buckland or transplanted heart Procedures Follow Up In Cardiology Rosalinda Torres MD 703 [facility] 2, [address] [address] Rosalinda Torres MD 703 [facility] 2, [facility] [address] [place] [address] Referral ID Status Reason Start Date Expiration Date V isits Requested Visits Authorized [id number] Pending Review 02/22/2024 02/21/2025 1 1 Reason Comments Diabetes Reason Comments Follow-up [address] 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, back4 month Follow uppap issuesSHINGRIX #2 // [facility] TRADITIONAL PLAN THROUGH SPOUSESHINGRIX #1 // [facility] TRADITIONAL PLAN THROUGH SPOUSEMODERNA BIVALENT BOOSTERAFLURIA FLU VACCINECKD and HTNreview labSLEEP LABhosp recheck/ discuss disability processDocumentationFYI/ updateDisability paperworkEmployee Program F/UCKDPt no show Employee Diabetes Ed program 4/8Clinicalneuropathy, chest pressure ,SOBfyirefillsneeds formerly [facility], [facility] [phone] Care Teams (unrecognized sec tion and content) Team Status: Active Member Role Status Josafat Casey , DO Primary Care Provider Active Team Status: Inactive Member Role Status Josafat Casey , DO Primary Care Provider Active Federico Sepulveda MD Attending Provider Active Team Status: Inactive Member Role Status Josafat Casey , DO Primary Care Provider Active Renée Watts [facility] Attending Provider Active Team Status: Inactive [...] Provider Active Renée Watts [facility] Attending Provider Active Team Status: Inactive Member Role Status Josafat Casey , DO Primary Care Provider Active Dipak Amaro MD Attending Provider Active Team Status: Inactive Member Role Status Josafat Casey , DO Primary Care Provider Active Elpidio Whipple MD Attending Provider Active Team Status: Inactive Member Role Status Josafat Casey , DO Primary Care Provider, Attending Taisha escobedo Active Team Status: Inactive Member Role Status Josafat Casey , DO Primary Care Provider Active Blas Ortiz MD Attending Provider Active Team Status: Active Member Role Status Josafat Casey , DO Primary Care Provider, Attending Provi fanny Active Team Status: Inactive Member Role Status Dates Charan Casey DO Primary Care Provider Active Thierno Chatterjee MD Attending Provider Active Team Status: Inactive Member Role Status Dates Charan Casey DO Primary Care Provider Active Yasmeen Treadwell MD Attending Provider Active Team Status: Inactive Member Role Status Dates Charan Casey DO Primary Care Provider Active Sta rt: October 06, 2023 End: October 06, 2023 Yasmeen Treadwell MD Attending Provider Active Start: October 06, 2023 End: October 06, 2023 Team Status: Inactive Member Role Status Dates Blas Bellamy PRODUCT SUPPORT SALES REPRESENTATIVE-C Attending Provider Activ e Start: October 21, [...] December 30, 2023 End: December 30, 2023 Animal Shelter Manager Relationship Specialty Start Date End Date Charan Casey DO [address] [facility] [address] [address] [place] [address] PCP - General Family Medicine 02/22/24 Rosalinda Torres MD 703 [facility] 2, [address] [place] [address] Consulting Physician Cardiology 02/22/24 Team Status: Inactive Member Role Status Dates Charan Kuns , DO Primary Care Provider Active Sta rt: February 04, 2024 End: February 04, 2024 Blas Ortzi MD Attending Provider Active Sta rt: February 04, 2024 End: February 04, 2024 Team Status: Active Member Role Status Dates Charan Casey , Primary Care Provider Active Sta rt: February 12, 2024 ITZ Marsh Attending Provider Active Start: February 12, 2024 Team Status: Active Member Role Status Dates Charan Casey , Primary Care Provider Active Sta rt: February 17, 2024 Kellie Garcia LPN Attending Provider Active Sta rt: February 17, 2024 Team Status: Active Member Role Status Dates Charan Casey , Primary Care Provider Active Sta rt: February 23, 2024 Kellie Garcia LPN Attending Provider Active Sta rt: February 23, 2024 Team Status: Inactive Member Role Status Dates Charan Casey , Primary Care Provide r, Attending Provider Active [...] Referral Self Attending Provider Active Start: O ct2023 End: September 07, 2024 Team Status: Inactive [...] October 19, 2024 End: October 19, 2024 Animal Shelter Manager Relationship Specialty Start Date End Date Charan Casey MD [address] [place] [phone] PCP - General 05/20/23 Moni Becker MD [address] [facility] [address] [place] [address] PCP - [facility] 07/31/24 11/29/24 Animal Shelter Manager Relationship Specialty Start Date End Date Charan Casey DO PCP - General Family Medicine 02/22/24 Rosalinda Torres MD [address] [place] [address] 2, [facility] [address] [place] [address] Consulting Physician Cardiology 02/22/24 Team Status: Inactive Member Role Status Dates Charan Kuns , DO Primary Care Provider Active Sta rt: October 25, 2024 End: October 25, 2024 Nader Curry , DO Attending Provider Active St art: October [...] Sta rt: November 15, 2024 Nader Curry , DO Attending Provider Active St art: November [...] Sta rt: December 26, 2024 Nader Curry , Attending Provider Active St art: December 26, [...] Sta rt: January 03, 2025 Nader Curry , DO Attending Provider Active St art: January 03, 2025 Team Status: Inactive Member Role Status Dates Charan Casey DO Primary Care Provide r, Attending Provider Active Start: January 09, 2025 End: January 09, 2025 Animal Shelter Manager Relationship Specialty Start Date End Date Charan Casey MD [address] [place] [phone] PCP - General 05/20/23 Team Status: Active Member Role Status Dates Charan Casey DO Primary Care Provider Active Sta rt: January 09, 2025 lBas Ortiz MD Attending Provider Active Sta rt: [...] 2025 Team Status: Inactive Member Role Status Jsoafat Casey DO Primary Care Provider Active Sta rt: January 31, 2025 End: January 31, 2025 Nader Curry DO Attending Provider Active St art: January 31, 2025 End: January 31, 2025 Animal Shelter Manager Relationship Specialty Start Date End Date Charan Casey DO [address] [place] [address] PCP - General 05/20/23 Team Status: Inactive Member Role Status Josafat Casey DO Primary Care Provider Active Sta rt: March 06, 2025 End: March 06, 2025 Charan Casey DO Attending Provider Active Start: March 06, 2025 End: March 06, 2025 Team Status: Inactive Member Role Status Josfaat Casey DO Primary Care Provider Active Sta [...] July 12, 2025 End: July 12, 2025 Animal Shelter Manager Relationship Specialty Start Date End Date Charan Casey DO [address] [place] [phone] PCP - General 05/20/23 Animal Shelter Manager Relationship Specialty Start Date End Date Charan Casey DO [address] [place] [phone] PCP - General 05/20/23 Goals (unrecognized section and content) Goals may [...] BE BASED ON THE PRIMARY CLINICAL RECORDS. [facility]. provides no warranty or guarantee of the accuracy or completeness of information in this document.
== END 2025-08-02 08:55 | disposition home or self-care (01) ==
LOC: WC 08:54
PROVIDERS: PCP Family Medicine; Visit Provider Podiatrist Foot & Ankle Surgery
DX: E11.621 Type 2 diabetes mellitus with foot ulcer (principal); L97.423 Non-pressure chronic ulcer of left heel and midfoot with necrosis of muscle
CPT/HCPCS: 97605

== ENCOUNTER 2025-08-16 13:51 | Outpatient (OUT) | payer MEDICARE, SELFPAY | END 2025-08-16 13:52 | disposition home or self-care (01) | LOC: WC 13:51 | PROVIDERS: PCP Family Medicine; Visit Provider Physician Assistant | DX: E11.621 Type 2 diabetes mellitus with foot ulcer (principal); L97.423 Non-pressure chronic ulcer of left heel and midfoot with necrosis of muscle | CPT/HCPCS: 29445 ==

== ENCOUNTER 2025-08-23 09:24 | Outpatient (OUT) | payer MEDICARE, SELFPAY ==
--- OUTSIDE RECORDS SUMMARY | 2025-07-12 05:00 | XMS_ITS ---
Author Organization The [facility] in [place] Address [address] [place] [address] Care Team Providers Care Director Of Corporate Sponsorships Name Role Phone Charan Delgadillo DO Primary Care Provider Torers Cid [facility] [phone] REASON FOR VISIT 1 year f/u Encounters Encounter Location Date Provider Diagnosis [facility] (PODIATRY) [address] [place] [address] [address] [place] [address] 07/12/2025 Torres Fernandez Plan Of Treatment No Information Progress Notes * Corin COBBanithaDOB:1960 (64 yo F)Acc No.[id number]:07/12/2025 UNLOCKED PROGRESS NOTE Follow Up Patient: Joy CHAVEZ Provider: Dani Fernandez DPM MS :1960 A ge:64 Y S ex:Female Date:07/12/2025 Address[address] [facility]-[address] Pcp:Charan Delgadillo DO Subjective: * Chief Complaints: * 1 . 1 year f/u. * Medical History: Objective: * Vitals: Assessment: Plan: * Treatment: * * Electronic signature of Agapito Fernandez DPM on 08/23/2025 at 09:27 AM EDT Sign off status: Pending Visit Status: O FF CANC (OFFICE CANCEL) * Provider: Dani Fernandez DPM, MS Date: 07/12/2025 Generated for Printi ng/Faxing/eTransmitting on: 08/23/2025 09:27 AM EDT
--- OUTSIDE RECORDS SUMMARY | 2025-08-23 09:27 | XMS_ITS | Clinical Summary ---
Author Organization [facility] Healthcare Address [address] [facility] [place] [address] Care Team Providers Care Medical Editor Name Role Phone Charan Delgadillo DO Primary Care Provider [phone] Allergies Active Allergy Reactions Criticality Noted Date [...] mouth at bedtime Active Continuous Blood Gluc Supervisor [place] (Dexcom G7 Supervisor [place]) device USE DIRECTED 07/16/20 23 Active Continuous [...] PO) Take by mouth Act jenna insulin pen needle 31G X 8 mm miscIndicatio ns:Type 2 diabetes mellitus with peripheral neuropathy (HCC) Injection subcutaneous tid 100 each 3 07/26/20 25 026 Active insulin degludec (Tresiba FlexTouch) 200 UNIT/ML injectionIndi cations:Type 2 diabetes mellitus with peripheral neuropathy (HCC) Inject 30 Units under the skin Daily 9 mL 3 07/27/20 25 Active HumaLOG KWIKPEN 100 UNIT/ML injectionIndi cations:Type 2 diabetes mellitus with peripheral neuropathy (HCC) 10 units breakfast, 14 units dinner plus correction 1:30 > 150 mg/dl (max daily 50 units) 15 mL 3 08/15/20 25 Active insulin degludec (Tresiba FlexTouch) 200 UNIT/ML injectionIndi cations:Type 2 diabetes mellitus with peripheral neuropathy (HCC) Inject 60 Units under the skin Daily 9 mL 3 02/15/20 25 025 Discontinued(D ose adjustment) insulin lispro (HumaLOG KWIKPEN) 100 UNIT/ML injectionIndi cations:Type 2 diabetes mellitus with peripheral neuropathy (HCC) 10 units breakfast, 14 units dinner plus correction 1:30 > 150 mg/dl (max daily 50 units) 15 mL 3 05/15/20 25 025 Discontinued(R eorder) insulin [...] they have any problems or questions. Joy Jama Lakeshia control is stable overall. , Will [...] Encounters Date Type Department Care Team Description 08/15/2025 Refill [facility] [address] [place] [phone] Monica Tee LPN Type 2 diabetes mellitus with peripheral neuropathy (HCC) 07/27/2025 8:15 AM EDT Office Visit [facility] [address] [place] [phone] Shaina Figueroa, Type 2 diabetes mellitus with [...] (BMI) of 35.0 to 35.9 in adult ([facility]) 07/27/2025 Bamboo flowsheet [facility] [address] [place] [phone] Shaina Figueroa DO 07/27/2025 Travel 07/26/2025 Travel 07/24/2025 Refill [facility] [address] [place] [phone] Kimberley Finn LPN Type 2 diabetes mellitus with peripheral neuropathy (HCC) 07/18/2025 Telephone [facility] [address] [place] [phone] Nancy Henriquez MA Home Health Care 06/15/2025 Telephone [facility] [address] [place] [phone] Donna Dela Cruz MA Blood Sugar Problem from Last 3 Months Immunizations Immunization Administration [...] How often do you attend chur or sabianist services? More than 4 times per year 07/26/2025 Do you belong to any clubs o r organizations such as jehovah's witness groups, unions, fraternal or athletic groups, or [...] Recorded Patient Health Questionnaire-2 Score 0 05/15/2025 [facility] - Occupational [...] place to sleep or slept in a alf (including now)? No 02/08/2024 Housing Stability Vital Sign Answer Luis e Recorded In the last 12 months, was t here a time when you were not able to pay the mortgage or rent on time? No 07/26/2025 In the past 12 months, how m any times have you moved where you were living? 0 07/26/2025 At any time in the past 12 m [facility], were you homeless or living in a alf (including now)? No 07/26/2025 Comments Unknown Sex [...] Care Team (Late st Contact Info) Description 10/24/2025 10:30 AM EST [facility] [address] [place] [address] Shaina Figueroa, [address] [place] [address] Health Maintenance Due Date Last Done Comments CT Colonography 1960 Colonoscopy 1960 Colorectal Cancer Screening 1960 FIT-DNA 1960 FIT 1960 FOBT 1960 Sigmoidoscopy 1960 Pap Smear 1981 Cervical Cancer Screening 1990 HPV/Cotest 1990 Mammogram 2000 Influenza Vaccine (#1) 2025 2, 08/30/2021, 08/30/2019, Additional history exists Insurance [employer] Care Teams Medical Editor Relationship Specialty Start Date End Date Charan Delgadillo DO [address] [place] [address] PCP - General 05/20/23
--- OUTSIDE RECORDS SUMMARY | 2025-08-23 09:27 | XMS_ITS | Encounter Summary ---
Author Organization [facility] Address [address] [place] [phone] Phone Care Team Providers Care Leak Inspector Name Role Phone Charan Delgadillo DO Primary Care Provider [phone] Charan Delgadillo DO Primary Care Provider [phone] Rosalinda Cordova MD Unavailable [phone] Encounter Details Date Type Department Care Team (Late st Contact Info) Description 04/30/2022 Orders Only [facility] [address] [place] [address] Conversion, Onbase Social History Tobacco Use Types [...] EST Office Visit [facility] [address] [facility] [address] [place] [address] Rosalinda Cordova MD [address]03 [facility] 2, [address] [place] [address] Scheduled Orders Name Type Priority Associated Diagnoses Orde r Schedule SLEEP STUDY ORDER - ONBASE SCAN Sleep Center Ordered: 022 documented as of this encounter Visit Diagnoses Not on filedocumented in this encounter Care Teams Leak Inspector Relationship Specialty Start Date End Date Charan Delgadillo DO PCP - General 07/09/20 02/21/24 Charan Delgadillo DO PCP - General Family Medicine 02/22/24 Rosalinda Cordova MD 703 [facility] 2, [place] [address] Consulting Physician Cardiology 02/22/24 documented as of this encounter
--- OUTSIDE RECORDS SUMMARY | 2025-08-23 09:27 | XMS_ITS | Patient Health Record ---
Author Organization [facility] [employer] Address [address] [place] [place] [address] Care Team Providers Care Pouch Maker Name Role Phone Charan Delgadillo DO Primary Care Provider Torres Cid [phone] Allergies Allergen (clinical drug ingredient) Drug/Non Drug Allergy documented on EMR Reaction Allergy Type Onset Date Status erythromycin Erythromycin Unknown Drug Allergy A ctive Reason For Referral No Information Medications Medication SIG (Take, Route, Frequency, Duration) Notes Start Date End Date Status Lyrica 150 MG 1 capsule Orally Onc e a day Active Allopurinol 100 MG 1 tablet Orally Once a day; Duration: 30 day(s) Active Metoprolol Succinate 200 MG 1 capsule Orally Once a day; Duration: 30 day(s) Active Mag Glycinate 100 MG as directed Orally Active Fosamax 70 MG 1 tablet 30 minutes before the first food, beverage or medicine of the day with plain water Orally; Duration: 30 day(s) Active Brooke-C - as directed Orally A ctive Lyrica 300 MG 1 capsule in the sirisha orlando 1 to 3 hours before bedtime Orally Once a day Active HumaLOG KwikPen 100 UNIT/ML as directed Subcutaneous Act jenna Benicar 40 MG 1 tablet Orally Once a day; Duration: 30 day(s) Active Vitamin D3 50 MCG (2000 UT) 1 capsule Orally Once a day; Duration: 90 days 06/10/2023 Active Aspirin 81 MG 1 tablet Orally Once a day; Duration: 30 day(s) Active Hamlin 3 1000 MG 1 capsule Orally Onc e a day; Duration: 30 day(s) Active Brilinta 90 MG 1 tablet Orally Twic e a day; Duration: 30 day(s) Active Social History Tobacco Use: [...] Problem Status W/U Status Risk Notes Problem Foot ulcer due to type 2 diabetes mellitus (5545137698126) 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.621) Active confirmed Problem Ingrowing nail (138088310) Ingrowing nail (L60.0) Active confirmed Problem Chronic ulcer of david t (737436944) 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) Active confirmed Problem Non-pressure chr onic ulcer of other part of left foot limited to breakdown of skin (L97.521) Active confirmed Problem Arthropathy associated with a neurological disorder (40399920) Charcot's joint, right ankle and foot (M14.671) Active confirmed Problem Localized, primary osteoarthritis of the ankle and/or foot (401709655) Primary osteoarthritis, left ankle and foot (M19.072) Active confirmed Problem Acquired hammer toe of left foot (6222324275408853) Other hammer toe(s) (acquired), left foot (M20.42) Active confirmed Problem Deformity of lower leg (065826335) Other specified acquired deformities of right lower leg (M21.861) Active confirmed Problem Arthralgia of the ankle and/or foot (058782194) Pain in right ankle and joints of right foot (M25.571) Active confirmed Problem Arthralgia of the ankle and/or foot (039176874) Pain in left ankle and joints of left foot (M25.572) Active confirmed Problem Pain in right foot (163855816711847) Pain in right foot (M79.671) Active confirmed Problem Pain in left foot (755221649787772) Pain in left foot (M79.672) Active confirmed Problem Pseudarthrosis after fusion or arthrodesis (648903906) Pseudarthrosis after fusion or arthrodesis (M96.0) Active confirmed Problem Pain associated with internal prosthetic device (disorder) (740024088) Pain due to internal orthopedic prosthetic devices, implants and grafts, initial encounter (T84.84XA) Active confirmed Problem Hypertension (83599801) HTN (hypertension) (I10) Active confirmed Problem Diabetic nephropathy (451854398) Diabetic nephropathy (E11.21) Active confirmed Problem Heart disease (28397972) Heart disease (I51.9) Active confirmed Problem Arthropathy associated with a neurological disorder (23479559) Charcot's joint of left foot (M14.672) Active confirmed Problem Dehiscence of surgical wound (disorder) (93828906) Postoperative wound dehiscence, subsequent encounter (T81.31XD) Active confirmed Problem Non-pressure chr onic ulcer of left heel and midfoot limited to breakdown of skin (L97.421) Active confirmed Problem Hypercholesterolemia (74262139) Hypercholesterolemia (E78.00) Active confirmed Problem Arthropathy associated with a neurological disorder (10947415) Charcot's joint of right foot (M14.671) Active confirmed Problem Acquired abducti on deformity of left foot (M21.6X2) Active confirmed Problem Diabetes mellitus (34444834) Diabetes mellitus (E11.9) Active confirmed Plan Of Treatment Pending Test Test Name Order Date POINT OF CARE GLUCOSE 04/13/2023 PROF CHEM 8 (BAS METB) 03/31/2023 XR foot LAURA min 3V 06/22/2024 Insurance Providers Payer Name Payer Address Payer Phone Subscriber Number Group Number Insured Name Patient Relationship to Insured Coverage Start Date Coverage End Date [address] [place], [place] [id number] Joy Asher Self - patient is the [...] Spine Fusion LT Ankle exploration/bx Dr Seymour 2017 Heart Stents 03/27/2022 LT midfoot fustion with elizabeth ective osteotomy, talonavicular/subtaler joint fustions, harvest of distal tibial bone graft, gastrocnemius recession/exostectomy Dr Fernandez 12/29/2022 removal deep implanted hardware left david t 04/13/2023 back injections Hospitalization History Reason Date(Month/Year) see above
--- OUTSIDE RECORDS SUMMARY | 2025-08-23 09:27 | XMS_ITS | Encounter Summary ---
Author Organization [facility] Address [address] [place] [address] Phone Care Team Providers Care Correspondence Clerk Name Role Phone Charan Delgadillo DO Primary Care Provider [phone] Charan Delgadillo DO Primary Care Provider [phone] Rosalinda Cordvoa MD Unavailable Encounter Details Date Type Department Care Team (Late st Contact Info) Description 12/30/2023 Scanned Document [address] [place] [address] Scanning, Generic Provider Social History Tobacco Use [...] Visit [facility] 703 [facility] [address] [place] [address] Rosalinda Cordova MD 703 [facility] 2, [address] [place] [address] documented as of this encounter Procedures Procedure Name Priority Date/Time Associated Diagnosis Comments OUTSIDE IMAGING SCAN 12/30/2023 documented in this encounter Results * OUTSIDE IMAGING SCAN (12/30/2023) Anatomical Region Laterality Modality Other Narrative 12/30/2023 Ordered by an unspecified provider. us Generic Provider Scanning OUTSIDE SCAN Final Result documented in this encounter Visit Diagnoses Not on filedocumented in this encounter Care Teams Correspondence Clerk Relationship Specialty Start Date End Date Charan Delgadillo DO PCP - General 07/09/20 02/21/24 Charan Delgadillo DO PCP - General Family Medicine 02/22/24 Rosalinda Cordova MD 703 [facility] 2, [address] [address] Consulting Physician Cardiology 02/22/24 documented as of this encounter
--- OUTSIDE RECORDS SUMMARY | 2025-08-23 09:27 | XMS_ITS | Encounter Summary ---
Author Organization [facility] Address [address] [place] [id number] Phone Care Team Providers Care Diesel Instructor Name Role Phone Charan Delgadillo DO Primary Care Provider [phone] Charan Delgadillo DO Primary Care Provider [phone] Rosalinda Cordova MD Unavailable [phone] Encounter Details Date Type Department Care Team (Late st Contact Info) Description 04/17/2020 Orders Only [facility] [address] [place] [address] Conversion, Onbase Social History Tobacco Use Types [...] EST Office Visit [facility] [address] [address] Rosalinda Cordova MD [address] [facility] [address], [address] [place] [address] Scheduled Orders Name Type Priority Associated Diagnoses Orde r Schedule OUTSIDE LAB SCAN Lab Ordered: 04/17/2020 documented as of this encounter Visit Diagnoses Not on filedocumented in this encounter Care Teams Diesel Instructor Relationship Specialty Start Date End Date Charan Delgadillo DO PCP - General 07/09/20 02/21/24 Charan Delgadillo DO PCP - General Family Medicine 02/22/24 Rosalinda Cordova MD 703 [facility] 2, [place] [address] Consulting Physician Cardiology 02/22/24 documented as of this encounter
--- OUTSIDE RECORDS SUMMARY | 2025-08-23 09:27 | XMS_ITS | Encounter Summary ---
Author Organization [facility] Address [address] [place] [address] Phone Care Team Providers Care Batch Blender Name Role Phone Charan Delgadillo DO Primary Care Provider [phone] Charan Delgadillo DO Primary Care Provider [phone] Rosalinda Cordova MD Unavailable [phone] Encounter Details Date Type Department Care Team (Late st Contact Info) Description 03/06/2023 Orders Only [facility] [address] [place] [address] Conversion, Onbase Social History Tobacco Use Types [...] PM EST [facility] 703 [facility] 250 [place] [address] Rosalinda Cordova MD 703 [facility] 2, [address] [place] [address] Scheduled Orders Name Type Priority Associated Diagnoses Orde r Schedule OUTSIDE LAB SCAN Lab Ordered: 03/06/2023 documented as of this encounter Visit Diagnoses Not on filedocumented in this encounter Care Teams Batch Blender Relationship Specialty Start Date End Date Charan Delgadillo DO PCP - General 07/09/20 02/21/24 Charan Delgadillo DO PCP - General Family Medicine 02/22/24 Rosalinda Cordova MD 703 [facility] 2, [place] [address] Consulting Physician Cardiology 02/22/24 documented as of this encounter
--- OUTSIDE RECORDS SUMMARY | 2025-08-23 09:27 | XMS_ITS | Encounter Summary ---
Author Organization [facility] Address [address] [facility] [place] [address] Care Team Providers Care Civil Celebrant Name Role Phone BrysonCharan clemente Dani BASSETT Primary Care Provider [phone] Shaina Figueroa DO Unavailable [phone] Moni Becker MD Unavailable [phone] Encounter Details Date Type Department Care Team (Late st Contact Info) Description 05/20/2023 Abstract [facility] [address] [facility] 100 [place] [address] Luisito Seymour DPM [address] [facility] [address] [place] [address] Social History Tobacco Use Types Packs/Day Years [...] Description 10/24/2025 10:30 AM EST Office Visit [facility] [address] [place] [address] Shaina Figueroa DO [address] [facility] 230 [place] [address] documented as of this encounter Visit Diagnoses Not on filedocumented in this encounter Care Teams Civil Celebrant Relationship Specialty Start Date End Date Charan Delgadillo DO [address] [place] [address] PCP - General 05/20/23 Shaina Figueroa DO [address] [facility] 230 [place] [address] PCP - Medical [facility] 04/30/23 02/06/24 Moni Becker MD [address] [facility] [address] [place] [address] PCP - [facility] 07/31/24 11/29/24 documented as of this encounter
--- OUTSIDE RECORDS SUMMARY | 2025-08-23 09:27 | XMS_ITS | Encounter Summary ---
Author Organization [facility] Address [address] [place] [address] Phone Care Team Providers Care Experiential Therapist Name Role Phone Yeison Delgadilloan Dani BASSETT Primary Care Provider [phone] Rosalinda Cordova MD Unavailable [phone] Encounter Details Date Type Department Care Team (Late st Contact Info) Description 02/29/2024 Scanned Document [facility] [address] [place] [address] Scanning, Generic Provider Social History [...] Office Visit [facility] [address] [facility] 250 [place] [address] Rosalinda Cordova MD 703 [facility] [address], [address] [place] [address] documented as of this encounter Visit Diagnoses Not on filedocumented in this encounter Additional Health Concerns Assessment Noted Time A fall risk assessment has been complete d for the patient 02/22/2024 2:26 PM EDT documented as of this encounter Care Teams Experiential Therapist Relationship Specialty Start Date End Date Charan Delgadillo DO PCP - General Family Medicine 02/22/24 Rosalinda Cordova MD 703 [facility] 2, [place] [address] Consulting Physician Cardiology 02/22/24 documented as of this encounter
--- OUTSIDE RECORDS SUMMARY | 2025-08-23 09:27 | XMS_ITS | Encounter Summary ---
Author Organization [facility] Address [address] [place] [phone] Phone Care Team Providers Care Sawmill Hand Name Role Phone Charan Delgadillo DO Primary Care Provider [phone] Charan Delgadillo DO Primary Care Provider [phone] Rosalinda Cordova MD Unavailable [phone] Encounter Details Date Type Department Care Team (Late st Contact Info) Description 06/19/2020 Orders Only [facility] [address] [place] [address] Conversion, Onbase Social History Tobacco Use Types [...] EST Office Visit [facility] [address] [address] Rosalinda Cordova MD 703 [facility] [address], [address] [place] [address] Scheduled Orders Name Type Priority Associated Diagnoses Orde r Schedule OUTSIDE LAB SCAN Lab Ordered: 06/19/2020 documented as of this encounter Visit Diagnoses Not on filedocumented in this encounter Care Teams Sawmill Hand Relationship Specialty Start Date End Date Charan Delgadillo DO PCP - General 07/09/20 02/21/24 Charan Delgadillo DO PCP - General Family Medicine 02/22/24 Rosalinda Cordova MD [address] [facility] 2, [place] [address] Consulting Physician Cardiology 02/22/24 documented as of this encounter
--- OUTSIDE RECORDS SUMMARY | 2025-08-23 09:27 | XMS_ITS | Clinical Summary ---
Author Organization [facility] Address [address] [place] [address] Phone Care Team Providers Care Hot Plate Press Operator Name Role Phone Charan Delgadillo DO Primary Care Provider [phone] Rosalinda Cordova MD Unavailable [phone] Allergies Active Allergy Reactions Criticality Noted Date [...] daily. Active ergocalciferol (Vitamin D-2) 1.25 MG (29627 UT) capsule Take 1 capsule (50,000 Units) [...] 10 mg tabletIndications :Atherosclerotic heart disease of [place] coronary artery without angina pectoris Take 1 [...] 2:30 PM EST Office Visit [facility] 703 [facility] [address] [place] [address] Rosalinda Cordova MD 703 [facility] [address], [address] [place] [address] Health Maintenance Due Date Last Done Comments CT Colonography 1960 Diabetes: Hemoglobin A1C 1960 Diabetes: Urine Protein Screening 1960 FIT-DNA (Cologuard) 1960 FIT 1960 HIV Screening 1960 Lipid Panel 1960 Medicare Annual Wellness Visit (AWV) 1960 Sigmoidoscopy 1960 MMR Vaccines (1 of 1 - [...] Tdap) 09/08/2022 09/08/2012 COVID-19 Vaccine ( season) 2025 10/16/2022, 10/16/2022, 09/25/2021, Additional history exists Influenza [...] age to complete this topic Insurance [facility] [employer] MEDICARE [employer] [place] MEDICARE [facility] [employer] MEDICARE [employer] [place] MEDICARE Care Teams Hot Plate Press Operator Relationship Specialty Start Date End Date Charan Delgadillo DO PCP - General Family Medicine 02/22/24 Rosalinda Cordova MD 703 [facility] 2, [address] [address] Consulting Physician Cardiology 02/22/24
--- OUTSIDE RECORDS SUMMARY | 2025-08-23 09:27 | XMS_ITS | Encounter Summary ---
Author Organization [facility] Address [address] [place] [address] Care Team Providers Care Attendance Secretary Name Role Phone Brysonbryn Charan Dani BASSETT Primary Care Provider [phone] Shaina Figueroa DO Unavailable [phone] Moni Becker MD Unavailable [phone] Encounter Details Date Type Department Care Team (Late st Contact Info) Description 05/19/2023 Abstract [facility] [address] [facility] [address] [place] [address] Jo Pringle LPN 240 [facility] [address] [place] [address] Social History Tobacco Use Types Packs/Day Years [...] [facility] [address] [place] [address] Shaina Figueroa DO [address] [place] [address] documented as of this encounter Visit Diagnoses Not on filedocumented in this encounter Care Teams Attendance Secretary Relationship Specialty Start Date End Date Charan Delgadillo DO [address] [place] [address] PCP - General 05/20/23 Shaina Figueroa DO [address] [place] [address] PCP - [facility] 04/30/23 02/06/24 Moni Becker MD [address] [facility] [address] [address] [place] [address] PCP - [facility] 07/31/24 11/29/24 documented as of this encounter
--- OUTSIDE RECORDS SUMMARY | 2025-08-23 09:27 | XMS_ITS | Encounter Summary ---
Author Organization [facility] Address [address] [place] [phone] Phone Care Team Providers Care Ship Runner Name Role Phone Charan Delgadillo DO Primary Care Provider [phone] Charan Delgadillo DO Primary Care Provider [phone] Rosalinda Cordova MD Unavailable [phone] Encounter Details Date Type Department Care Team (Late st Contact Info) Description 08/13/2022 Orders Only [facility] [address] [place] [address] Conversion, Onbase Social History Tobacco Use Types [...] Office Visit [facility] 703 [facility] 250 [place] [address] Rosalinda Cordova MD 703 [facility] 2, [address] [place] [address] Scheduled Orders Name Type Priority Associated Diagnoses Orde r Schedule OUTSIDE LAB SCAN Lab Ordered: 08/13/2022 documented as of this encounter Visit Diagnoses Not on filedocumented in this encounter Care Teams Ship Runner Relationship Specialty Start Date End Date Chraan Delgadillo DO PCP - General 07/09/20 02/21/24 Charan Delgadillo DO PCP - General Family Medicine 02/22/24 Rosalinda Cordova MD 703 [facility] 2, [place] [address] Consulting Physician Cardiology 02/22/24 documented as of this encounter
--- OUTSIDE RECORDS SUMMARY | 2025-08-23 09:27 | XMS_ITS | Encounter Summary ---
Author Organization [facility] Address [address] [place] [address] Phone Care Team Providers Care Caustic Mixer Name Role Phone Yeison Delgadilloan Dani BASSETT Primary Care Provider Rosalinda Cordova MD Unavailable [phone] Encounter Details Date Type Department Care Team (Late st Contact Info) Description 12/08/2024 Scanned Document [facility] [address] [place] [address] Scanning, Generic Provider Social History [...] PM EST Office Visit [facility] [address] [address] Rosalinda Cordova MD [address] [facility] 2, [address] [place] [address] documented as of this encounter [...] documented as of this encounter Care Teams Caustic Mixer Relationship Specialty Start Date End Date Charan Delgadillo DO PCP - General Family Medicine 02/22/24 Rosalinda Cordova MD [address] [facility] 2, [place] [address] Consulting Physician Cardiology 02/22/24 documented as of this encounter
--- OUTSIDE RECORDS SUMMARY | 2025-08-23 09:27 | XMS_ITS | Encounter Summary ---
Author Organization [facility] Address [address] [place] [address] Care Team Providers Care Lumber Checker Name Role Phone Brysonmarybeth Charan Louise DO Primary Care Provider [phone] Reason for Visit * Reason Onset Date Comments Med Refill 08/15/2025 Encounter Details Date Type Department Care Team (Late st Contact Info) Description 08/15/2025 Refill [facility] [address] [place] [address] Monica Tee LPN [address] [place] [address] Type 2 diabetes mellitus with peripheral neuropathy [...] How often do you attend chur or congregational services? More than 4 times per year 07/26/2025 Do you belong to any clubs o r organizations such as mu-ism groups, unions, fraternal or athletic groups, or [...] Recorded Patient Health Questionnaire-2 Score 0 05/15/2025 [facility] - [...] health care facility (including now)? No 02/08/2024 Housing Stability Vital Sign Answer Luis e Recorded In the last 12 months, was t here a time when you were not able to pay the mortgage or rent on time? No 07/26/2025 In the past 12 months, how m any times have you moved where you were living? 0 07/26/2025 At any time in the past 12 m [facility], were you homeless or living in a [place] health care facility (including now)? No 07/26/2025 Comments Unknown Sex and Gender Information Value Date Recorded Sex Assigned at Female 05/20/2023 8:32 AM EDT Legal Sex Female 7:19 PM EDT Gender Identity Female 05/20/2023 8:32 AM EDT Sexual Orientation Not on file documented as of this encounter Miscellaneous Notes * Telephone Encounter - Monica Tee LPN - 08/15/2025 12:05 PM EDT Insurance requiring brand name be sent. -RX sent documented in this encounter Plan of Treatment Upcoming Encounters Date Type Department Care Team (Late st Contact Info) Description 10/24/2025 10:30 AM EST Office Visit [facility] [address] [place] [address] Shaina Figueroa DO [address] [place] [address] documented as of this encounter Visit Diagnoses Diagnosis Type 2 diabetes mellitus with peripheral neuropathy (HCC) documented in this encounter Care Teams Lumber Checker Relationship Specialty Start Date End Date Charan Delgadillo DO [address] [place] [address] PCP - General 05/20/23 documented as of this encounter
--- OUTSIDE RECORDS SUMMARY | 2025-08-23 09:28 | XMS_ITS | Encounter Summary ---
Author Organization [facility] Address [address] [facility] [place] [address] Care Team Providers Care Volcanology Teacher Name Role Phone Leona Charan Louise DO Primary Care Provider [phone] Moni Becker MD Unavailable [phone] Encounter Details Date Type Department Care Team (Late st Contact Info) Description 09/05/2024 Abstract [facility] 230 [address] [facility] [address] [place] [address] Shaina Figueroa, [address] [facility] 230 [place] [address] Social History Tobacco Use Types Packs/Day Years [...] often do you attend chur ch or zoroastrian services? More than 4 times per year 02/08/2024 Do you belong to any clubs o r organizations such as rastafari groups, unions, fraternal or athletic groups, or [...] Recorded Patient Health Questionnaire-2 Score 0 10/12/2023 [facility] - Occupational [...] place to sleep or slept in a mcc (including now)? No 02/08/2024 Comments Unknown Sex [...] Description 10/24/2025 10:30 AM EST Office Visit [facility] [address] [place] [address] Shaina Figueroa DO [address] [place] [address] documented as of this encounter Visit Diagnoses Not on filedocumented in this encounter Care Teams Volcanology Teacher Relationship Specialty Start Date End Date Charan Delgadillo DO [address] [place] [address] PCP - General 05/20/23 Moni Becker MD [address] [place] [address] PCP - C 07/31/24 11/29/24 documented as of this encounter
--- OUTSIDE RECORDS SUMMARY | 2025-08-23 09:28 | XMS_ITS | Encounter Summary ---
Author Organization [facility] Address [address] [place] [address] Care Team Providers Care Job Cost Estimator Name Role Phone Brysonbryn Charan Louise DO Primary Care Provider [phone] Encounter Details Date Type Department Care Team (Late st Contact Info) Description 01/05/2025 Abstract [facility] [address] [facility] [address] [place] [address] Shaina Figueroa DO [address] [facility] [address] [place] [address] Social History Tobacco Use Types Packs/Day Years [...] often do you attend chur ch or denominational services? More than 4 times per year 02/08/2024 Do you belong to any clubs o r organizations such as voodoo groups, unions, fraternal or athletic groups, or [...] Recorded Patient Health Questionnaire-2 Score 0 10/17/2024 [facility] Occupat ional Health [...] place to sleep or slept in a senior care (including now)? No 02/08/2024 Comments Unknown Sex [...] [address] [place] [address] Shaina Figueroa DO [address] [place] [address] documented as of this encounter Visit Diagnoses Not on filedocumented in this encounter Care Teams Job Cost Estimator Relationship Specialty Start Date End Date Charan Delgadillo DO [address] [place] [address] PCP - General 05/20/23 documented as of this encounter
--- OUTSIDE RECORDS SUMMARY | 2025-08-23 09:28 | XMS_ITS | Encounter Summary ---
Author Organization [facility] Address [address] [place] [id number] Phone Care Team Providers Care Power Press Operator Name Role Phone Charan Delgadillo DO Primary Care Provider [phone] Charan Delgadillo DO Primary Care Provider [phone] Rosalinda Cordova MD Unavailable [phone] Encounter Details Date Type Department Care Team (Late st Contact Info) Description 03/25/2022 Orders Only [facility] [address] [place] [address] Conversion, Onbase Social History Tobacco Use Types [...] Description 11/03/2025 2:30 PM EST Office Visit [facility] [address] [address] Rosalinda Cordova MD 703 [facility] 2, [address] [place] [address] Scheduled Orders Name Type Priority Associated Diagnoses Orde r Schedule OUTSIDE LAB SCAN Lab Ordered: 03/25/2022 OUTSIDE LAB SCAN Lab Ordered: 03/25/2022 OUTSIDE LAB SCAN Lab Ordered: 03/25/2022 documented as of this encounter Visit Diagnoses Not on filedocumented in this encounter Care Teams Power Press Operator Relationship Specialty Start Date End Date Charan Delgadillo DO PCP - General 07/09/20 02/21/24 Charan Delgadillo DO PCP - General Family Medicine 02/22/24 Rosalinda Cordova MD 3 [facility] 2, [address] [address] Consulting Physician Cardiology 02/22/24 documented as of this encounter
--- OUTSIDE RECORDS SUMMARY | 2025-08-23 09:28 | XMS_ITS | Encounter Summary ---
Author Organization [facility] Address [address] [facility] [place] [address] Care Team Providers Care Tax Compliance Manager Name Role Phone Leona Charan Louise DO Primary Care Provider [phone] Moni Becker MD Unavailable [phone] Encounter Details Date Type Department Care Team (Late st Contact Info) Description 04/21/2024 Orders Only [facility] [address] [facility] [address] [place] [address] Shaina Figueroa, [address] [facility] [address] [place] [address] Social History Tobacco Use Types [...] often do you attend chur ch or buddhism services? More than 4 times per year 02/08/2024 Do you belong to any clubs o r organizations such as religious groups, unions, fraternal or athletic groups, or [...] Recorded Patient Health Questionnaire-2 Score 0 10/12/2023 [facility] of Occupat ional Health - [...] place to sleep or slept in a residential (including now)? No 02/08/2024 Comments Unknown Sex [...] [address] [place] [address] Shaina Figueroa DO [address] [place] [address] documented as of this encounter Procedures Procedure [...] filedocumented in this encounter Care Teams Tax Compliance Manager Relationship Specialty Start Date End Date Charan Delgadillo DO [address] [place] [address] PCP - General 05/20/23 Moni Becker MD [address] [place] [address] PCP - C 07/31/24 11/29/24 documented as of this encounter
--- OUTSIDE RECORDS SUMMARY | 2025-08-23 09:28 | XMS_ITS | Encounter Summary ---
Author Organization [facility] Address [address] [place] [address] Care Team Providers Care Outdoor Adventure Instructor Name Role Phone Brysonbryn Charan Louise DO Primary Care Provider [phone] Encounter Details Date Type Department Care Team (Late st Contact Info) Description 05/09/2025 Abstract [facility] [address] [facility] [address] [place] [address] Shaina Figueroa DO [address] [facility] [address] [place] [address] Social History Tobacco Use Types Packs/Day Years [...] often do you attend chur ch or temple services? More than 4 times per year 02/08/2024 Do you belong to any clubs o r organizations such as episcopalian groups, unions, fraternal or athletic groups, or [...] Recorded Patient Health Questionnaire-2 Score 0 02/14/2025 [facility] of Occupat ional Health - Occupational [...] in a correction (including now)? No 02/08/2024 Comments Unknown Sex [...] [address] [place] [address] Shaina Figueroa DO [address] [place] [address] documented as of this encounter Visit Diagnoses Not on filedocumented in this encounter Care Teams Outdoor Adventure Instructor Relationship Specialty Start Date End Date Charan Delgadillo DO [address] [place] [address] PCP - General 05/20/23 documented as of this encounter
--- OUTSIDE RECORDS SUMMARY | 2025-08-23 09:28 | XMS_ITS | Encounter Summary ---
Author Organization [facility] Address [address] [place] [address] Care Team Providers Care Dump Truck Driver Name Role Phone Brysonbryn Charan Louise DO Primary Care Provider [phone] Encounter Details Date Type Department Care Team (Late st Contact Info) Description 02/24/2025 Abstract [facility] [address] [facility] [address] [place] [address] Shaina Figueroa DO [address] [facility] [address] [place] [address] Social History Tobacco Use Types Packs/Day Years [...] often do you attend chur ch or rastafari services? More than 4 times per year 02/08/2024 Do you belong to any clubs o r organizations such as methodist groups, unions, fraternal or athletic groups, or [...] Recorded Patient Health Questionnaire-2 Score 0 02/14/2025 [facility] of Occupat ional Health - Occupational Stress [...] place to sleep or slept in a snf (including now)? No 02/08/2024 Comments Unknown Sex [...] [address] [place] [address] Shaina Figueroa DO [address] [place] [address] documented as of this encounter Visit Diagnoses Not on filedocumented in this encounter Care Teams Dump Truck Driver Relationship Specialty Start Date End Date Charan Delgadillo DO [address] [place] [address] PCP - General 05/20/23 documented as of this encounter
--- OUTSIDE RECORDS SUMMARY | 2025-08-23 09:28 | XMS_ITS | Encounter Summary ---
Author Organization [facility] Address [address] [facility] [place] [address] Care Team Providers Care Element Winding Machine Tender Name Role Phone Leona Charan Louise DO Primary Care Provider [phone] Moni Becker MD Unavailable [phone] Encounter Details Date Type Department Care Team (Late st Contact Info) Description 02/15/2024 Abstract [facility] [address] [facility] [address] [place] [address] Shaina Figueroa, [address] [facility] 230 [place] [address] Social History Tobacco Use Types Packs/Day Years [...] any clubs o r organizations such as pentecostalism groups, unions, fraternal or athletic groups, or [...] Recorded Patient Health Questionnaire-2 Score 0 10/12/2023 [facility] of Occupat ional Health - Occupational [...] [address] [place] [address] Shaina Figueroa DO [address] [place] [address] documented as of this encounter Visit Diagnoses Not on filedocumented in this encounter Care Teams Element Winding Machine Tender Relationship Specialty Start Date End Date Charan Delgadillo DO [address] [place] [address] PCP - General 05/20/23 Moni Becker MD [address] [place] [address] PCP - C 07/31/24 11/29/24 documented as of this encounter
--- OUTSIDE RECORDS SUMMARY | 2025-08-23 09:28 | XMS_ITS | Encounter Summary ---
Author Organization [facility] Address [address] [place] [address] Care Team Providers Care Fish Inspector Name Role Phone Brysonbryn Charan Dani BASSETT Primary Care Provider [phone] Encounter Details Date Type Department Care Team (Late st Contact Info) Description 04/28/2025 Abstract [facility] [address] [facility] [address] [place] [address] Shaina Figueroa DO [address] [facility] [address] [place] [address] Social History Tobacco Use Types Packs/Day Years [...] often do you attend chur ch or spiritism services? More than 4 times per year [...] Recorded Patient Health Questionnaire-2 Score 0 02/14/2025 [facility] of Occupat ional Health - [...] place to sleep or slept in a detention (including now)? No 02/08/2024 Comments Unknown Sex [...] [address] [place] [address] Shaina Figueroa DO [address] [place] [address] documented as of this encounter Visit Diagnoses Not on filedocumented in this encounter Care Teams Fish Inspector Relationship Specialty Start Date End Date Charan Delgadillo DO [address] [place] [address] PCP - General 05/20/23 documented as of this encounter
--- OUTSIDE RECORDS SUMMARY | 2025-08-23 09:28 | XMS_ITS | Encounter Summary ---
Author Organization [facility] Address [address] [place] [id number] Phone Care Team Providers Care Morning Show Newscast Producer Name Role Phone Charan Delgadillo DO Primary Care Provider [phone] Charan Delgadillo DO Primary Care Provider [phone] Rosalinda Cordova MD Unavailable [phone] Encounter Details Date Type Department Care Team (Late st Contact Info) Description 10/22/2021 Orders Only [facility] [address] [place] [address] Conversion, Onbase Social History Tobacco Use Types [...] [facility] 7[address] [employer] [address] [place] [address] Rosalinda Cordova MD 703 [facility] 2, [address] [place] [address] Scheduled Orders Name Type Priority Associated Diagnoses Orde r Schedule SLEEP STUDY ORDER - ONBASE SCAN Sleep Center Ordered: 021 documented as of this encounter Visit Diagnoses Not on filedocumented in this encounter Care Teams Morning Show Newscast Producer Relationship Specialty Start Date End Date Charan Delgadillo DO PCP - General 07/09/20 02/21/24 Charan Delgadillo DO PCP - General Family Medicine 02/22/24 Rosalinda Cordova MD 703 [facility] 2, [place] [address] Consulting Physician Cardiology 02/22/24 documented as of this encounter
--- OUTSIDE RECORDS SUMMARY | 2025-08-23 09:28 | XMS_ITS | Encounter Summary ---
Author Organization [facility] Address [address] [place] [address] Care Team Providers Care Printing Supervisor Name Role Phone Brysonbryn Charan Louise DO Primary Care Provider [phone] Encounter Details Date Type Department Care Team (Late st Contact Info) Description 04/03/2025 Abstract [facility] [address] [facility] [address] [place] [address] Shaina Figueroa DO [address] [facility] [address] [place] [address] Social History Tobacco Use Types Packs/Day Years [...] often do you attend chur ch or bahai services? More than 4 times [...] Patient Health Questionnaire-2 Score 0 02/14/2025 [facility] of Occupat ional Health - Occupational [...] in a penitentiary (including now)? No 02/08/2024 Comments Unknown Sex [...] [address] [place] [address] Shaina Figueroa DO [address] [place] [address] documented as of this encounter Visit Diagnoses Not on filedocumented in this encounter Care Teams Printing Supervisor Relationship Specialty Start Date End Date Charan Delgadillo DO [address] [place] [address] PCP - General 05/20/23 documented as of this encounter
--- OUTSIDE RECORDS SUMMARY | 2025-08-23 09:28 | XMS_ITS | Encounter Summary ---
Author Organization [facility] Address [address] [place] [id number] Phone Care Team Providers Care Supreme Court Judge Name Role Phone Charan Delgadillo DO Primary Care Provider [phone] Charan Delgadillo DO Primary Care Provider [phone] Rosalinda Cordova MD Unavailable [phone] Encounter Details Date Type Department Care Team (Late st Contact Info) Description 11/19/2021 Orders Only [facility] [address] [place] [address] Conversion, Onbase Social History Tobacco Use Types [...] Office Visit [facility] 703 [facility] 250 [place] [address] Rosalinda Cordova MD 703 [facility] 2, [address] [place] [address] Scheduled Orders Name Type Priority Associated Diagnoses Orde r Schedule OUTSIDE LAB SCAN Lab Ordered: 11/19/2021 documented as of this encounter Visit Diagnoses Not on filedocumented in this encounter Care Teams Supreme Court Judge Relationship Specialty Start Date End Date Charan Delgadillo DO PCP - General 07/09/20 02/21/24 Charan Delgadillo DO PCP - General Family Medicine 02/22/24 Rosalinda Cordova MD 703 [facility] 2, [place] [address] Consulting Physician Cardiology 02/22/24 documented as of this encounter
--- OUTSIDE RECORDS SUMMARY | 2025-08-23 09:28 | XMS_ITS | Encounter Summary ---
Author Organization [facility] Address [address] [place] [address] Care Team Providers Care Exhauster Engineer Name Role Phone Brysonbryn Charan Louise DO Primary Care Provider [phone] Encounter Details Date Type Department Care Team (Late st Contact Info) Description 02/24/2025 Abstract [facility] [address] [facility] [address] [place] [address] Shaina Figueroa DO [address] [facility] [address] [place] [address] Social History Tobacco Use Types Packs/Day Years [...] often do you attend chur ch or yazdanism services? More than 4 times per year 02/08/2024 Do you belong to any clubs o r organizations such as anabaptism groups, unions, fraternal or athletic groups, or [...] Recorded Patient Health Questionnaire-2 Score 0 02/14/2025 [facility] of Occupat ional Health - Occupational Stress [...] place to sleep or slept in a [facility]p (including now)? No 02/08/2024 Comments Unknown Sex [...] [address] [place] [address] Shaina Figueroa DO [address] [place] [address] documented as of this encounter Visit Diagnoses Not on filedocumented in this encounter Care Teams Exhauster Engineer Relationship Specialty Start Date End Date Charan Delgadillo DO [address] [place] [address] PCP - General 05/20/23 documented as of this encounter
--- OUTSIDE RECORDS SUMMARY | 2025-08-23 09:28 | XMS_ITS | Encounter Summary ---
Author Organization [facility] Address [address] [place] [address] Phone Care Team Providers Care Ecology Professor Name Role Phone Charan Delgadillo DO Primary Care Provider Charan Delgadillo DO Primary Care Provider [phone] Rosalinda Cordova MD Unavailable [phone] Encounter Details Date Type Department Care Team (Late st Contact Info) Description 02/19/2022 Orders Only [facility] [address] [place] [address] Conversion, Onbase Social History Tobacco Use Types Packs/Day Years Used Date Smoking Tobacco: Never Assessed Comments Unknown Sex and Gender Information Value Date Recorded Sex Assigned at Not on file Legal Sex Female 10:20 AM EST Gender Identity Not on file Sexual Orientation Not on file documented as of this encounter Functional Status * BP Answer Date of Assessment Author 131/71 02/20/2022 12:28 PM EDT Conversi on, [employer] Vitals * Pulse Answer Date of Assessment Author 72 02/20/2022 12:28 PM EDT Conversi on, [employer] Vitals * Little interest or pleasure in doing things Answer Date of Assessment Author Not at all 02/20/2022 12:28 PM EDT Conversi on, [employer] Vitals * Little interest or pleasure in doing things Answer Date of Assessment Author Not at all 02/20/2022 12:28 PM EDT Conversi on, [employer] Vitals documented as of this encounter Plan of Treatment Upcoming Encounters Date Type Department Care Team (Late st Contact Info) Description 11/03/2025 2:30 PM EST Office Visit [facility] 703 [facility] 250 [place] [address] Rosalinda Cordova MD 703 [facility] 2, [address] [address] Scheduled Orders Name Type Priority Associated Diagnoses Orde r Schedule OUTSIDE LAB SCAN Lab Ordered: 02/19/2022 documented as of this encounter Visit Diagnoses Not on filedocumented in this encounter Care Teams Ecology Professor Relationship Specialty Start Date End Date Charan Delgadillo DO PCP - General 07/09/20 02/21/24 Charan Delgadillo DO PCP - General Family Medicine 02/22/24 Rosalinda Cordova MD 703 [facility] 2, [address] [address] Consulting Physician Cardiology 02/22/24 documented as of this encounter
--- OUTSIDE RECORDS SUMMARY | 2025-08-23 09:28 | XMS_ITS | Encounter Summary ---
Author Organization [facility] Address [address] [facility] [place] [address] Care Team Providers Care Resource Specialist Teacher Name Role Phone Leona Charan Louise DO Primary Care Provider [phone] Moni Becker MD Unavailable [phone] Encounter Details Date Type Department Care Team (Late st Contact Info) Description 09/05/2024 Orders Only [facility] [address] [facility] [address] [place] [address] Shaina Figueroa, [address] [facility] [address] [place] [address] Social History Tobacco Use Types [...] often do you attend chur ch or pentecostalism services? More than 4 times per year 02/08/2024 Do you belong to any clubs o r organizations such as confucianism groups, unions, fraternal or athletic groups, or [...] Recorded Patient Health Questionnaire-2 Score 0 10/12/2023 [facility] of Occupat ional Health - Occupational [...] place to sleep or slept in a half-way (including now)? No 02/08/2024 Comments Unknown Sex [...] [address] [place] [address] Shaina Figueroa DO [address] [place] [address] documented as of this encounter Procedures Procedure [...] filedocumented in this encounter Care Teams Resource Specialist Teacher Relationship Specialty Start Date End Date Charan Delgadillo DO [address] [place] [address] PCP - General 05/20/23 Moni Becker MD [address] [place] [address] PCP - C 07/31/24 11/29/24 documented as of this encounter
--- OUTSIDE RECORDS SUMMARY | 2025-08-23 09:35 | XMS_ITS | CCD ---
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 Name Role Phone Charan Casey Unavailable Unavailable Unavailable Blas Ortiz Unavailable Charan Casey Unavailable Thierno Chatterjee Unavailable Renée Watts Unavailable Elpidio Whipple Unavailable Federico Sepulveda Unavailable DO Charan Casey Primary Care Provider [phone] DO Mathieu Paul Emergency Provider [phone] DO Charan Casey Other Provider MD Elpidio Whipple Attending Provider ROSS Ceja Attending Provider [phone] MD Dipak Amaro Attending Provider TIMOTEO Watts Attending Provider DO Charan Casey Primary Care Provider Eliud Rod Unavailable DO Cahran Casey Primary Care Provider [phone] TIMOTEO Watts Attending Provider [phone] DO Charan Casey Primary Care Provider TIMOTEO Watts Attending Provider MD Federico Sepulveda Attending Provider MD Elpidio Whipple Attending Provider ACOSTA CASTRO [...] Scott Consulting Unavailable [employer] Consult[employer] Unavailable [facility] [place]IDER Primary Care Unavailable HIGHLANDER, ACOSTA [...] Provider Kuns, DO Charan Primary Care Provider [phone] MD Blas Ortiz Attending Provider Kuns, DO Charan Primary Care Provider Kuns, DO Charan Attending Provider MD Thierno Chatterjee Attending Provider Yasmeen Treadwell Unavailable Kuns, DO Charan Primary Care Provider MD Blas Ortiz Attending Provider MD Elpidio Whipple Attending Provider Kuns, DO Charan Primary Care Provider MD Thierno Chatterjee Attending Provider [phone] MD Blas Ortiz Attending Provider MD Elpidio Whipple Attending Provider [phone] MD Yasmeen Treadwell Attending Provider [phone] Blas Bellamy Unavailable Kuns, DO Charan Primary Care Provider MD Blas Ortiz Attending Provider [phone] Kuns, DO Charan Attending Provider [phone] Kuns, DO Charan Primary Care Provider Kuns, DO Charan Primary Care Provider [phone] Kuns hCaran BASSETT Primary Care Provider Rosalinda Torres MD Unavailable [phone] ROSALINDA TORRES Attending Unavailable CHARAN CASEY MINOR Primary Care Unavailable Kuns, DO Charan Primary Care Provider Kuns, DO Charan Attending Provider MD Blas Ortiz Attending Provider Kuns, DO Charan Primary Care Provider Kuns, DO Charan Attending Provider Kuns, DO Charan Primary Care Provider [phone] Kuns, DO Charan Primary Care Provider MD Blas Ortiz Attending Provider Kuns, DO Charan Primary Care Provider ROSS Castro Attending Provider [phone] Self, Referral Attending Provider Unavailable MD Blas Ortiz Attending Provider Kuns DO, Charan Primary Care Provider Acosta Castro DPM Attending Provider [phone] Self, Referral Attending Provider Unavailable Blas Ortiz MD Attending Provider Charan Casey MD Primary Care Provider Moni Becker MD Unavailable Kunbryn BASSETT, Charan P Primary Care Provider Kuns DO, Charan Primary Care Provider Nader Curry DO Attending Provider KunCharan clemente DO Attending Provider Kuns DO, Charan Primary Care Provider [phone] Blas Ortiz MD Attending Provider [phone] Kuns Charan BASSETT Primary Care Provider Nader Curry DO Attending Provider Nader Curry DO Attending Provider Jacinto BASSETT, Charan Primary Care Provider [phone] Charan Casey DO Attending Provider Nader Curry DO Attending Provider [phone] Jacinto DO, Charan Primary Care Provider [phone] Jacinto DOCharan P Primary Care Provider Kuns DO, Charan Primary Care Provider Brysons DO, Charan Attending Provider Blas Ortiz MD Attending Provider [phone] Jacinto DO, Charan Primary Care Provider Acosta Castro DPM Attending Provider Blas Ortiz Admitting Unavailable Blas Ortiz Attending [...] Referral Admitting Unavailable Self, Referral Attending Unavailable Antoniette, Nader A Admitting Unavailable Kuns, Charan Primary Care Unavailable Antoinette Nader A Attending Unavailable Blas Ortiz Admitting Unavailable Blas Ortiz Attending Unavailable Kuns, Charan Primary Care Unavailable Gustavo Cuevas DO Attending Provider [phone] Karla Lyons MD Attending Provider [phone] Charan Casey DO Attending Provider SHAINA MUNROE Attending Unavailable SHAINA MUNROE Attending Unavailable SHAINA MUNROE Attending Unavailable CHARAN CASEY Referring Unavailable SHAINA MUNROE Attending Unavailable Allergies Allergy Classification Reported Allergen(s) Allergy Type Date of Onset Reaction(s) Facility Lincosamides (antibiotic) (1 source) Clindamycin Drug Allergy 05-23-20 oral [facility] Quinolones (antibiotic) (1 source) levoFLOXacin Drug Allergy 05-23-20 24 hypoglycemia [facility] (20 sources) Erythromycin; 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: [Erythromycin Base TABS] Drug Allergy 12-04-19 24 nausea, Nausea/vomiting , Unknown [facility] (20 sources) Clindamycin Drug Allergy 12-31-19 24 oral med - rash [facility] (20 sources) arzithomycin Propensity to adverse reactions 12-31-19 24 stomach upset [facility] (20 sources) erythromycin base; 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: [Erythromycin Base] Propensity to adverse reactions 03-25-20 22 Nausea Only [facility] (2 sources) levoFLOXacin Drug Allergy [facility] Other (20 sources) levoFLOXacin; Translations: [LEVOFLOXACIN] Drug Allergy 12-31-19 24 Nausea/vomiting , GI intolerance [facility] Medications Current Medications Medication Drug Class(es) [...] Take by mouth Active Continuous Blood Gluc Steam [employer] 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 (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) device (8 sources) Start: 07-16-2023 Continuous Blo od Gluc Steam And Gas 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 (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) device USE DIRECTED 07/16/2023 Active Continuous Blood Gluc Sensor (Dexcom G7 Sensor) misc (8 sources) Start: 08-18-2023 Continuous Blo od Gluc Sensor (Dexcom G7 Sensor) misc USE DIRECTED, CHANGE EVERY 10 DAYS 08/18/2023 Active CoQ-10 (15 sources) CoQ-10 Active CoQ-10 100 MG (6 sources) CoQ-10 100 MG as directed Orally ONCE A DAY Active Dexcom G6 Steam And Gas 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 - (20 sources) Start: 03-19-2021 Dexcom G6 [...] months Feb, Active Start: 03-19-2021 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 - (20 sources) Start: 07-02-2023 Dexcom G7 [...] once daily ergocalciferol (Vitamin D-2) 1.25 MG (94704 UT) capsule Take 1 capsule (50,000 Units) by mouth once daily. 08/29/2021 Active Start: 08-29-2021 take 1 tablet by nicola th two times weekly Vitamin D (Ergocalciferol) 1.25 MG (87902 UT) Oral Capsule Take 1 tablet twice weekly Quantity: 0 Refills: 0 Ordered: 14-Jan-2022 DO Start : 29-Aug-2021 Active Start: 06-15-2020 End: 03-01-2024 take 1 capsule by mouth every week Ergocalciferol (Vitamin D2) 1,250 mcg (50,000 unit) Capsule Discontinued 1250 MCG PO every week June 15, 2020 12:00am March 01, 2024 9:34am thursday take 1 capsule by mo ut every week Ergocalciferol 76431 UNIT 1 capsule Orally Q week Active take 1 capsule by mo uth every week Ergocalciferol 51541 UNIT 1 capsule Orally Q week Active [...] 24, 2022 11:00pm omega-3 acid ethyl esters (correction) 1000 mg oral capsule (20 sources) Start: 03-04-2023 take 1 capsule by mouth in the morning omega-3 acid ethyl esters (Lovaza) 1 g capsule Take 2 g by mouth in the morning and 2 g before bedtime. 03/04/2023 Active Start: 06-15-2019 End: 04-11-2025 [place]-3 Acid Ethyl Esters (L ovaza) 1 gram capsule Discontinued 2 CAP PO Twice daily 360 90 September 23, 2024 11:59am April 11, 2025 4:11pm Start: 12-25-2017 End: 01-03-2018 [place]-3 Acid Ethyl Esters (L ovaza) 1 gram [...] 2024 1:53pm As directed polyethylene glycol 3350 638722 mg / potassium chloride 2970 mg / sodium bicarbonate 6740 mg / sodium chloride 5860 mg / sodium sulfate 58442 mg powder for oral solution (2 sources) [...] Start: 05-08-2022 take 1 capsule by mo [facility] twice daily Co-Enzyme Q10 100 MG Oral [...] twice daily as needed for pain Hydrocodone-Acetaminophen ([place]) 5-325 mg tablet Discontinued 1 TAB PO Twice daily as needed for Pain June 19, 2020 12:00am July 27, 2020 8:14am Start: 01-17-2018 End: 06-15-2019 take 1-2 tablets by mouth every six hours as needed for pain Hydrocodone-Acetaminophen ([place]) 5-325 mg tablet Discontinued 2 TAB PO [...] 10:59am Start: 10-21-2023 take 1 capsule by [facility] every eight hours Benzonatate 200 MG 1 capsule Orally Three times a day Nov, Active Vwiadqmoxj-Jybkxlns-Jdwuaagh ol (5 sources) Corticosteroid, beta2-Adrenergic Agonist Start: 12-09-2024 End: 01-09-2025 Vzorprkrbp-Agtsfmai-Kowtymtm ol (Breztri Aerosphere) 160-9-4.8 mcg/actuation HFA aerosol inhaler Discontinued 2 INH INHALATION Twice daily 5.December 09, 2024 1:00am January 09, 2025 10:59am SAMPLE PROVIDED Mgiwaejikl-Kjidrumo-Qecxjfwr ol (Breztri Aerosphere) 160-9-4.8 mcg/actuation HFA aerosol inhaler (11 sources) Start: 12-09-2024 End: 01-09-2025 Tkgstislks-Isyiahuj-Hxtanibo ol (Breztri Aerosphere) 160-9-4.8 mcg/actuation HFA aerosol inhaler Discontinued 2 INH INHALATION Twice daily 5.9 December 09, 2024 1:00am January 09, 2025 10:59am SAMPLE PROVIDED Start: 12-09-2024 End: 01-09-2025 Upzahywurt-Zbrzzuss-Mkgrumof ol (Breztri Aerosphere) 160-9-4.8 mcg/actuation HFA aerosol [...] Start: 03-11-2019 take 2 tablets by mo [facility] every twenty-four hours Olmesartan Medoxomil 40 MG [...] [Coronary atherosclerosis of unspecified type of vessel, [place] or graft] Onset: 2 Resolved: 2 Chronic [...] sources) Long-term current use of insulin; Translations: [[facility] (current) use of insulin] Onset: 3 01-13-2024 Episodic Other aftercare (20 sources) Drug therapy finding; Translations: [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] 02-17-2018 Episodic Other aftercare (5 sources) Taking high risk medication; Translations: [[facility] (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 therapy] 12-30-2017 Episodic Other connective [...] (BMI) of 39.0 to 39.9 in adult ([facility])] Onset: 3 10-18-2024 Chronic Other nutritional; endocrine; [...] 01-13-2024 Episodic Other aftercare (1 source) [facility] (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 therapy; Translations: [OTH HALFWAY CURRENT DRUG THERAPY] Onset: 01-06-2023 Episodic Other aftercare (1 source) 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; Translations: [HALFWAY CURRENT USE OF INSULIN] Onset: 01-06-2023 Episodic Other aftercare (1 source) tank terminal gauger (current) use of aspirin; Translations: [DELI BAKERY CLERK CURRENT USE OF ASPIRIN] Onset: 01-06-2023 Episodic Other aftercare (1 source) tank terminal gauger (current) use of anticoagulants; Translations: [HALFWAY CURRNT USE ANTICOAGULANTS] Onset: 12-25-2022 Episodic Other [...] Basophils (Bld) [#/Vol] 0.0 10 3/uL 0.0-0.1 [facility] Basophils/100 WBC Auto (Bld) Ordered By: Karla Lyons on 06-30-2025 Basophils/100 WBC (Bld) 0.1 % Low 0.2-2.0 [facility] Eosinophils/100 WBC Auto (Bl d)Ordered By: Karla Lyons on 06-30-2025 Eosinophils/100 WBC (Bld) 0.0 % Low 0.9-7.0 [facility] Erythrocyte distribution wid th Auto (RBC) [Ratio]Ordered By: Karla Lyons on 06-30-2025 Erythrocyte distribution width (RBC) [Ratio] 12.2 % 11.0-15.0 [facility] Globulin Calc (S) [Mass/Vol] Ordered By: Karla Lyons on 06-30-2025 Globulin (S) [Mass/Vol] 4.1 g/dL [facility] Glomerular filtration rate ( GFR) estimation in non- AmericanOrdered By: Karla Lyons on 06-30-2025 GFR/1.73 sq M.predicted among non-blacks MDRD (S/P/Bld) [Vol rate/Area] 34 mL/min/{1.73_m2} Low >=60 mL/min/1.73 m 2 [facility] Hematocrit Auto (Bld) [Volum e fraction]Ordered By: Karla Lyons on 06-30-2025 Hematocrit (Bld) [Volume fraction] 30.3 % Low 36.0-48.0 [facility] Hemoglobin [Mass/volume] in BloodOrdered By: Karla Lyons on 06-30-2025 Hemoglobin (Bld) [Mass/Vol] 10.1 g/dL Low 12.0-16.0 [facility] Laboratory - Chemistry and C hemistry - challengeOrdered By: Karla Lyons on 06-30-2025 Albumin [Mass/Vol] 1.9 g/dL Low 3.4-5.0 [facility] ALP [Catalytic activity/Vol] 99 U/L 46-116 [facility] ALT [Catalytic activity/Vol] 23 U/L 14-59 [facility] AST [Catalytic activity/Vol] 14 U/L Low 15-37 [facility] Bilirubin [Mass/Vol] 0.3 mg/dL 0.2-1.0 [facility] Calcium [Mass/Vol] 8.6 mg/dL 8.5-10.1 [facility] Chloride [Moles/Vol] 106 mmol/L 98-107 [facility] CO2 [Moles/Vol] 23.0 mmol/L 21.0-32.0 [facility] Creatinine [Mass/Vol] 1.54 mg/dL High 0.55-1.02 [facility] GFR/1.73 sq M.predicted MDRD (S/P/Bld) [Vol rate/Area] 41 mL/min/{1.73_m2} Low >=60 mL/min/1.73 m 2 [facility] Glucose [Mass/Vol] 253 mg/dL High 74-106 [facility] Magnesium [Mass/Vol] 1.7 mg/dL Low 1.8-2.4 [facility] Potassium [Moles/Vol] 5.0 mmol/L 3.5-5.1 [facility] Protein [Mass/Vol] 6.0 g/dL Low 6.4-8.2 [facility] Sodium [Moles/Vol] 138 mmol/L 136-145 [facility] Urea nitrogen [Mass/Vol] 56.0 mg/dL High 7.0-18.0 [facility] Urea nitrogen/Creatinine [Mass ratio] 36.4 mg/mg [facility] Laboratory - Hematology and Cell countsOrdered By: Karla Lyons on 06-30-2025 ESR (Bld) [Velocity] 106 mm/h High <=30 [facility] Immature granulocytes/100 WBC (Bld) 0.8 % High 0.0-0.5 [facility] Leukocytes [#/volume] correc praneeth for nucleated erythrocytes in Blood by Automated counOrdered By: Karla Lyons on 06-30-2025 WBC corrected for nucl RBC Auto (Bld) [#/Vol] 11.8 10 3/uL High 4.0-11.0 [facility] Lymphocytes Auto (Bld) [#/Vo l]Ordered By: Karla Lyons on 06-30-2025 Lymphocytes (Bld) [#/Vol] 0.8 10 3/uL Low 1.2-3.8 [facility] Lymphocytes/100 WBC Auto (Bl d)Ordered By: Karla Lyons on 06-30-2025 Lymphocytes/100 WBC (Bld) 7.0 % Low 20.5-60.0 [facility] MCH Auto (RBC) [Entitic mass ]Ordered By: Karla Lyons on 06-30-2025 MCH (RBC) [Entitic mass] 29.3 pg 26.7-34.0 [facility] MCHC Auto (RBC) [Mass/Vol]Or dered By: Karla Lyons on 06-30-2025 MCHC (RBC) [Mass/Vol] 33.3 g/dL 29.9-35.2 [facility] MCV Auto (RBC) [Entitic vol] Ordered By: Karla Lyons on 06-30-2025 MCV (RBC) [Entitic vol] 87.8 fL 81.0-99.0 [facility] Monocytes Auto (Bld) [#/Vol] Ordered By: Karla Lyons on 06-30-2025 Monocytes (Bld) [#/Vol] 0.5 10 3/uL 0.3-0.8 [facility] Monocytes/100 WBC Auto (Bld) Ordered By: Karla Lyons on 06-30-2025 Monocytes/100 WBC (Bld) 3.9 % 1.7-12.0 [facility] Neutrophils Auto (Bld) [#/Vo l]Ordered By: Karla Lyons on 06-30-2025 Neutrophils (Bld) [#/Vol] 10.4 10 3/uL High 1.4-6.5 [facility] Neutrophils/100 WBC Auto (Bl d)Ordered By: Karla Lyons on 06-30-2025 Neutrophils/100 WBC (Bld) 88.2 % High 43.0-75.0 [facility] No Panel InformationOrdered By: Gustavo Cuevas on 06-30-2025 Anaerobe Identification Only [facility] No Panel InformationOrdered By: Karla Lyons on 06-30-2025 C-Reactive Protein, Quantitative 17.95 mg/dL High <=0.50 [facility] Eosinophils # (Auto) 0.0 10 3/uL 0.0-0.7 [facility] Immature Granulocyte # (Auto) 0.09 10 3/uL High 0.00-0.03 [facility] Platelet mean volume Auto (B ld) [Entitic vol]Ordered By: Karla Lyons on 06-30-2025 Platelet mean volume (Bld) [Entitic vol] 11.5 fL 9.5-13.5 [facility] Platelets Auto (Bld) [#/Vol] Ordered By: Karla Lyons on 06-30-2025 Platelets (Bld) [#/Vol] 184 10 3/uL 150-450 [facility] RBC Auto (Bld) [#/Vol]Ordere d By: Karla Lyons on 06-30-2025 RBC (Bld) [#/Vol] 3.45 10 6/uL Low 4.20-5.40 [facility] Serum or plasma albumin/glob ulin mass ratioOrdered By: Karla Lyons on 06-30-2025 Albumin/Globulin [Mass ratio] 0.5 {ratio} [facility] Serum or plasma anion gap de terminationOrdered By: Karla Lyons on 06-30-2025 Anion gap [Moles/Vol] 14.0 mmol/L [facility] Basophils Auto (Bld) [#/Vol] Ordered By: Karla Lyons on 06-29-2025 Basophils (Bld) [#/Vol] 0.0 10 3/uL 0.0-0.1 [facility] Basophils/100 WBC Auto (Bld) Ordered By: Karla Lyons on 06-29-2025 Basophils/100 WBC (Bld) 0.1 % Low 0.2-2.0 [facility] Eosinophils/100 WBC Auto (Bl d)Ordered By: Karla Lyons on 06-29-2025 Eosinophils/100 WBC (Bld) 0.1 % Low 0.9-7.0 [facility] Erythrocyte distribution wid th Auto (RBC) [Ratio]Ordered By: Karla Lyons on 06-29-2025 Erythrocyte distribution width (RBC) [Ratio] 12.3 % 11.0-15.0 [facility] Globulin Calc (S) [Mass/Vol] Ordered By: Karla Lyons on 06-29-2025 Globulin (S) [Mass/Vol] 4.3 g/dL [facility] Glomerular filtration rate ( GFR) estimation in non- AmericanOrdered By: Karla Lyons on 06-29-2025 GFR/1.73 sq M.predicted among non-blacks MDRD (S/P/Bld) [Vol rate/Area] 31 mL/min/{1.73_m2} Low >=60 mL/min/1.73 m 2 [facility] Hematocrit Auto (Bld) [Volum e fraction]Ordered By: Karla Lyons on 06-29-2025 Hematocrit (Bld) [Volume fraction] 31.1 % Low 36.0-48.0 [facility] Hemoglobin [Mass/volume] in BloodOrdered By: Karla Lyons on 06-29-2025 Hemoglobin (Bld) [Mass/Vol] 10.6 g/dL Low 12.0-16.0 [facility] Laboratory - Chemistry and C hemistry - challengeOrdered By: Karla Lyons on 06-29-2025 Albumin [Mass/Vol] 2.1 g/dL Low 3.4-5.0 [facility] ALP [Catalytic activity/Vol] 88 U/L 46-116 [facility] ALT [Catalytic activity/Vol] 17 U/L 14-59 [facility] AST [Catalytic activity/Vol] 14 U/L Low 15-37 [facility] Bilirubin [Mass/Vol] 0.5 mg/dL 0.2-1.0 [facility] Calcium [Mass/Vol] 8.9 mg/dL 8.5-10.1 [facility] Chloride [Moles/Vol] 104 mmol/L 98-107 [facility] CO2 [Moles/Vol] 21.2 mmol/L 21.0-32.0 [facility] Creatinine [Mass/Vol] 1.68 mg/dL High 0.55-1.02 [facility] GFR/1.73 sq M.predicted MDRD (S/P/Bld) [Vol rate/Area] 37 mL/min/{1.73_m2} Low >=60 mL/min/1.73 m 2 [facility] Glucose [Mass/Vol] 201 mg/dL High 74-106 [facility] Potassium [Moles/Vol] 5.1 mmol/L 3.5-5.1 [facility] Protein [Mass/Vol] 6.4 g/dL 6.4-8.2 [facility] Sodium [Moles/Vol] 137 mmol/L 136-145 [facility] Urea nitrogen [Mass/Vol] 62.0 mg/dL High 7.0-18.0 [facility] Urea nitrogen/Creatinine [Mass ratio] 36.9 mg/mg [facility] Laboratory - Chemistry and C hemistry - challengeOrdered By: Elpidio Whipple on 06-29-2025 Magnesium [Mass/Vol] 1.9 mg/dL 1.8-2.4 [facility] Laboratory - Hematology and Cell countsOrdered By: Karla Lyons on 06-29-2025 Immature granulocytes/100 WBC (Bld) 0.3 % 0.0-0.5 [facility] Leukocytes [#/volume] correc praneeth for nucleated erythrocytes in Blood by Automated counOrdered By: Karla Lyons on 06-29-2025 WBC corrected for nucl RBC Auto (Bld) [#/Vol] 14.5 10 3/uL High 4.0-11.0 [facility] Lymphocytes Auto (Bld) [#/Vo l]Ordered By: Karla Lyons on 06-29-2025 Lymphocytes (Bld) [#/Vol] 0.7 10 3/uL Low 1.2-3.8 [facility] Lymphocytes/100 WBC Auto (Bl d)Ordered By: Karla Lyons on 06-29-2025 Lymphocytes/100 WBC (Bld) 4.9 % Low 20.5-60.0 [facility] MCH Auto (RBC) [Entitic mass ]Ordered By: Karla Lyons on 06-29-2025 MCH (RBC) [Entitic mass] 30.1 pg 26.7-34.0 [facility] MCHC Auto (RBC) [Mass/Vol]Or dered By: Karla Lyons on 06-29-2025 MCHC (RBC) [Mass/Vol] 34.1 g/dL 29.9-35.2 [facility] MCV Auto (RBC) [Entitic vol] Ordered By: Karla Lyons on 06-29-2025 MCV (RBC) [Entitic vol] 88.4 fL 81.0-99.0 [facility] Monocytes Auto (Bld) [#/Vol] Ordered By: Karla Lyons on 06-29-2025 Monocytes (Bld) [#/Vol] 0.7 10 3/uL 0.3-0.8 [facility] Monocytes/100 WBC Auto (Bld) Ordered By: Karla Lyons on 06-29-2025 Monocytes/100 WBC (Bld) 4.8 % 1.7-12.0 [facility] Neutrophils Auto (Bld) [#/Vo l]Ordered By: Karla Lyons on 06-29-2025 Neutrophils (Bld) [#/Vol] 13.0 10 3/uL High 1.4-6.5 [facility] Neutrophils/100 WBC Auto (Bl d)Ordered By: Karla Lyons on 06-29-2025 Neutrophils/100 WBC (Bld) 89.8 % High 43.0-75.0 [facility] No Panel InformationOrdered By: Karla Lyons on 06-29-2025 Eosinophils # (Auto) 0.0 10 3/uL 0.0-0.7 [facility] Immature Granulocyte # (Auto) 0.05 10 3/uL High 0.00-0.03 [facility] Platelet mean volume Auto (B ld) [Entitic vol]Ordered By: Karla Lyons on 06-29-2025 Platelet mean volume (Bld) [Entitic vol] 11.4 fL 9.5-13.5 [facility] Platelets Auto (Bld) [#/Vol] Ordered By: Karla Lyons on 06-29-2025 Platelets (Bld) [#/Vol] 178 10 3/uL 150-450 [facility] RBC Auto (Bld) [#/Vol]Ordere d By: Karla Lyons on 06-29-2025 RBC (Bld) [#/Vol] 3.52 10 6/uL Low 4.20-5.40 [facility] Serum or plasma albumin/glob ulin mass ratioOrdered By: Karla Lyons on 06-29-2025 Albumin/Globulin [Mass ratio] 0.5 {ratio} [facility] Serum or plasma anion gap de terminationOrdered By: Karla Lyons on 06-29-2025 Anion gap [Moles/Vol] 16.9 mmol/L [facility] Basophils Auto (Bld) [#/Vol] Ordered By: Charan Csaey on 06-28-2025 Basophils (Bld) [#/Vol] 0.0 10 3/uL 0.0-0.1 [facility] Basophils/100 WBC Auto (Bld) Ordered By: Charan Casey on 06-28-2025 Basophils/100 WBC (Bld) 0.1 % Low 0.2-2.0 [facility] Eosinophils/100 WBC Auto (Bl d)Ordered By: Charan Casey on 06-28-2025 Eosinophils/100 WBC (Bld) 0.1 % Low 0.9-7.0 [facility] Erythrocyte distribution wid th Auto (RBC) [Ratio]Ordered By: Charan Casey on 06-28-2025 Erythrocyte distribution width (RBC) [Ratio] 12.1 % 11.0-15.0 [facility] Globulin Calc (S) [Mass/Vol] Ordered By: Gustavo Cuevas on 06-28-2025 Globulin (S) [Mass/Vol] 4.6 g/dL [facility] Glomerular filtration rate ( GFR) estimation in non- AmericanOrdered By: Gustavo Cuevas on 06-28-2025 GFR/1.73 sq M.predicted among non-blacks MDRD (S/P/Bld) [Vol rate/Area] 19 mL/min/{1.73_m2} Low >=60 mL/min/1.73 m 2 [facility] Hematocrit Auto (Bld) [Volum e fraction]Ordered By: Charan Casey on 06-28-2025 Hematocrit (Bld) [Volume fraction] 33.7 % Low 36.0-48.0 [facility] Hemoglobin [Mass/volume] in BloodOrdered By: Charan Casey on 06-28-2025 Hemoglobin (Bld) [Mass/Vol] 11.7 g/dL Low 12.0-16.0 [facility] INR in Platelet poor plasma by Coagulation assayOrdered By: Gustavo Cuevas on 06-28-2025 INR Coag (PPP) [Relative time] 1.02 {INR} [facility] Comment on above: DESIRED INR:2.0-3.0 CONDITIONS NOT LISTED BELOW2.5-3.5 FOR PROSTHETIC HEART VALVE REPLACEMENT2.5-3.5 RECURRENT THROMBOSIS Laboratory - Chemistry and C hemistry - challengeOrdered By: Gustavo Cuevas on 06-28-2025 Albumin [Mass/Vol] 2.7 g/dL Low 3.4-5.0 [facility] ALP [Catalytic activity/Vol] 90 U/L 46-116 [facility] ALT [Catalytic activity/Vol] 23 U/L 14-59 [facility] AST [Catalytic activity/Vol] 25 U/L 15-37 [facility] Bilirubin [Mass/Vol] 0.6 mg/dL 0.2-1.0 [facility] Calcium [Mass/Vol] 9.3 mg/dL 8.5-10.1 [facility] Chloride [Moles/Vol] 99 mmol/L 98-107 [facility] CO2 [Moles/Vol] 22.3 mmol/L 21.0-32.0 [facility] Creatinine [Mass/Vol] 2.58 mg/dL High 0.55-1.02 [facility] GFR/1.73 sq M.predicted MDRD (S/P/Bld) [Vol rate/Area] 23 mL/min/{1.73_m2} Low >=60 mL/min/1.73 m 2 [facility] Glucose [Mass/Vol] 81 mg/dL 74-106 [facility] Lactate [Moles/Vol] 1.3 mmol/L 0.4-2.0 [facility] Potassium [Moles/Vol] 4.9 mmol/L 3.5-5.1 [facility] Protein [Mass/Vol] 7.3 g/dL 6.4-8.2 [facility] Sodium [Moles/Vol] 136 mmol/L 136-145 [facility] Urea nitrogen [Mass/Vol] 72.0 mg/dL High 7.0-18.0 [facility] Urea nitrogen/Creatinine [Mass ratio] 27.9 mg/mg [facility] Laboratory - Hematology and Cell countsOrdered By: Charan Casey on 06-28-2025 ESR (Bld) [Velocity] 104 mm/h High <=30 [facility] Immature granulocytes/100 WBC (Bld) 0.5 % 0.0-0.5 [facility] Leukocytes [#/volume] correc praneeth for nucleated erythrocytes in Blood by Automated counOrdered By: Charan Casey on 06-28-2025 WBC corrected for nucl RBC Auto (Bld) [#/Vol] 17.3 10 3/uL High 4.0-11.0 [facility] Lymphocytes Auto (Bld) [#/Vo l]Ordered By: Charan Casey on 06-28-2025 Lymphocytes (Bld) [#/Vol] 0.7 10 3/uL Low 1.2-3.8 [facility] Lymphocytes/100 WBC Auto (Bl d)Ordered By: Charan Casey on 06-28-2025 Lymphocytes/100 WBC (Bld) 4.0 % Low 20.5-60.0 [facility] MCH Auto (RBC) [Entitic mass ]Ordered By: Charan Casey on 06-28-2025 MCH (RBC) [Entitic mass] 30.4 pg 26.7-34.0 [facility] MCHC Auto (RBC) [Mass/Vol]Or dered By: Charan Casey on 06-28-2025 MCHC (RBC) [Mass/Vol] 34.7 g/dL 29.9-35.2 [facility] MCV Auto (RBC) [Entitic vol] Ordered By: Charan Casey on 06-28-2025 MCV (RBC) [Entitic vol] 87.5 fL 81.0-99.0 [facility] Monocytes Auto (Bld) [#/Vol] Ordered By: Charan Casey on 06-28-2025 Monocytes (Bld) [#/Vol] 0.7 10 3/uL 0.3-0.8 [facility] Monocytes/100 WBC Auto (Bld) Ordered By: Charan Casey on 06-28-2025 Monocytes/100 WBC (Bld) 4.0 % 1.7-12.0 [facility] Neutrophils Auto (Bld) [#/Vo l]Ordered By: Charan Casey on 06-28-2025 Neutrophils (Bld) [#/Vol] 15.8 10 3/uL High 1.4-6.5 [facility] Neutrophils/100 WBC Auto (Bl d)Ordered By: Charan Casey on 06-28-2025 Neutrophils/100 WBC (Bld) 91.3 % High 43.0-75.0 [facility] No Panel InformationOrdered By: Charan Casey on 06-28-2025 C-Reactive Protein, Quantitative 29.00 mg/dL High <=0.50 [facility] Eosinophils # (Auto) 0.0 10 3/uL 0.0-0.7 [facility] Immature Granulocyte # (Auto) 0.09 10 3/uL High 0.00-0.03 [facility] No Panel InformationOrdered By: Gustavo Cuevas on 06-28-2025 Venous Blood Partial Pressure CO2 41.7 mm[Hg] 40.0-52.0 [facility] Venous Blood pH 7.354 7.330-7.430 [facility] Platelet mean volume Auto (B ld) [Entitic vol]Ordered By: Charan Casey on 06-28-2025 Platelet mean volume (Bld) [Entitic vol] 11.8 fL 9.5-13.5 [facility] Platelets Auto (Bld) [#/Vol] Ordered By: Charan Casey on 06-28-2025 Platelets (Bld) [#/Vol] 178 10 3/uL 150-450 [facility] Prothrombin time (PT)Ordered By: Gustavo Cuevas on 06-28-2025 PT Coag (PPP) [Time] 10.8 s 9.0-11.6 [facility] RBC Auto (Bld) [#/Vol]Ordere d By: Charan Casey on 06-28-2025 RBC (Bld) [#/Vol] 3.85 10 6/uL Low 4.20-5.40 [facility] Serum or plasma albumin/glob ulin mass ratioOrdered By: Gustavo Cuevas on 06-28-2025 Albumin/Globulin [Mass ratio] 0.6 {ratio} [facility] Serum or plasma anion gap de terminationOrdered By: Gustavo Cuevas on 06-28-2025 Anion gap [Moles/Vol] 19.6 mmol/L [facility] X-ray reportOrdered By: Brian Mays on 06-05-2025 Study report [facility] Main [address] [address] XRay Report Signed Patient: Rita Cobb MR#: [id number] : 1960 Acct:[id number] Age/Sex: 64 / F ADM Date: 5 [facility] Room: Type: REG CLI Attending Dr: [...] Mays M.D. 06/05/2025 5:41 PM Dictation Location: [place] [address] Transcribed By: [facility] 06/05/251740 Dictated By: Néstor Mays MD 06/05/251734 Signed By: 06/05/25 174 [facility] Work Phone: XR foot BI 3Von 06-05-2025 XR foot BI 3V [facility] [place] [address] XRay Report Signed Patient: Rita Cobb MR#: [id number] : 1960 Acct:[id number] Age/Sex: 64 / F ADM Date: 06/05/25 Loc: [facility] Room: Type: REG CLI Attending Dr: [...] Mays M.D. 06/05/2025 5:41 PM Dictation Location: [place] [address] Transcribed By: [facility] 06/05/25 174 Dictated By: Néstor Mays MD 06/05/25 173 Signed By: 06/05/25 174 Normal [facility] HbA1c (Bld) [Mass fraction]o n 05-15-2025 Interpretation and review of laboratory results Abnormal Counts include 234 beds at the [facility] - Hematology and Cell countson 05-15-2025 HbA1c (Bld) [Mass fraction] 8.1 % [facility] RT wo con [facility] [place] [address] MRI Report Signed Patient: Rita Cobb MR#: [id number] : 1960 Acct:[id number] Age/Sex: 64 / F ADM Date: 01/23/25 Loc: [facility] Room: Type: [facility] Attending Dr: Nader Curry DO [...] Timothy Levi M.D.01/26/2025 9:38 AM Dictation Location: [facility] Transcribed By: FRANKY 01/26/25937 Dictated By: Timothy Levi II, MD 01/26/25901 Signed By: 01/26/25937 Normal [facility] Influenza virus B Ag [Presen ce] in Upper respiratory specimen by Rapid immunoassayon 12-09-2024 FLUBV Ag IA.rapid Ql (Nph) Influenza virus B Ag [Presence] in Upper respiratory specimen by Rapid immunoassay [facility] No Panel Informationon 12-09 Influenza Type A (Rapid) Negative [facility] POC SARS CoV-2 Antigen Negative [facility] No Panel InformationOrdered By: Charan Casey on 12-09-2024 RSV (POC) [facility] RSV (POC) [facility] X-ray reportOrdered By: Brian Mays on 12-08-2024 Study report [facility] [place] [address] XRay Report Signed Patient: Rita Cobb MR#: [id number] : 1960 Acct:[id number] Age/Sex: 64 / F ADM Date: 5 Loc: [facility] Room: Type: [facility] Attending Dr: Charan Casey DO Copies [...] MD 12/08/24 1524 Signed By: 12/08/24 1559 [facility] Work Phone: XR chest 2V*on 12-08-2024 XR chest 2V* [facility] Main [facility] [address] [place] [address] XRay Report Signed Patient: Rita Cobb MR#: [id number] : 1960 Acct:[id number] Age/Sex: 64 / F ADM Date: 12/08/24 [...] 1524 Signed By: 12/08/24 1559 Normal [facility] XR shoulder RT min 2V*on XR shoulder RT min 2V* [facility] [address] [place] [address] XRay Report Signed Patient: Rita Cobb MR#: [id number] : 1960 Acct:[id number] Age/Sex: 63 / F ADM Date: 10/25/24 [...] Ibis Crisostomo M.D.10/25/2024 9:11 AM Dictation Location: [place] [address] Transcribed By: [facility] 10/25/24 0911 Dictated By: Ibis Crisostomo MD 10/25/24 0908 Signed By: 10/25/24 0911 Normal [facility] HbA1c (Bld) [Mass fraction]o n 10-17-2024 Interpretation and review of laboratory results Normal Counts include 234 beds at the [facility] - Hematology and Cell countson 10-17-2024 HbA1c (Bld) [Mass fraction] 7.6 % [facility] MM screening mammo BI w/CADo n 09-07-2024 MM screening mammo BI w/CAD [facility] [place] [address] Mammography Report Signed Patient: Rita Cobb MR#: [id number] : 1960 Acct:[id number] Age/Sex: 63 / F ADM Date: 09/07/24 Loc: [place] Room: Type: REG CLI Attending Dr: Referral [...] Brown Jr., D.O.09/07/2024 9:04 AM Dictation Location: [facility] Transcribed By: [facility] 09/07/24903 Dictated By: Sudhir Brown Jr, DO 09/07/24899 Signed By: 09/07/24903 Normal [facility] Albumin [Mass/volume] in Ser um or Plasma by Bromocresol green (BCG) dye binding methoOrdered By: Elpidio Whipple on 02-29-2024 Albumin BCG dye [Mass/Vol] 4.3 g/dL 3.5-5.7 [facility] Automated erythrocytes count in urine sediment (number/area)Ordered By: Elpidio Whipple on 02-29-2024 RBC Auto (Urine sed) [#/Area] 1-2 [HPF] 0-4 [facility] Automated leukocytes count i n urine sediment (number/area)Ordered By: Elpidio Whipple on 02-29-2024 WBC Auto (Urine sed) [#/Area] 5-9 [HPF] 0-4 [facility] Bilirubin Test strip Ql (U)O rdered By: Elpidio Whipple on 02-29-2024 Bilirubin Ql (U) Negative Negative [facility] Calcium [Mass/volume] in Ser um or PlasmaOrdered By: Elpidio Whipple on 02-29-2024 Calcium [Mass/Vol] 9.8 mg/dL 8.6-10.3 [facility] Carbon dioxide, total [Moles /volume] in Serum or PlasmaOrdered By: Elpidio Whipple on 02-29-2024 CO2 [Moles/Vol] 30.4 mmol/L 21.0-31.0 [facility] Chloride [Moles/volume] in S john or PlasmaOrdered By: Elpidio Whipple on 02-29-2024 Chloride [Moles/Vol] 103 mmol/L 98-107 [facility] Color Auto (U)Ordered By: Ab rahul Whipple on 02-29-2024 Color (U) Dark yellow Yellow [facility] Creatinine [Mass/volume] in Serum or PlasmaOrdered By: Elpidio Whipple on 02-29-2024 Creatinine [Mass/Vol] 1.19 mg/dL 0.60-1.20 [facility] Creatinine [Mass/volume] in UrineOrdered By: Elpidio Whipple on 02-29-2024 Creatinine (U) [Mass/Vol] 101.0 mg/dL [facility] Comment on above: No reference range e stablished Erythrocyte distribution wid th Auto (RBC) [Ratio]Ordered By: Elpidio Whipple on 02-29-2024 Erythrocyte distribution width (RBC) [Ratio] 12.9 % 11.9-15.3 [facility] Glucose [Mass/volume] in Ser um or PlasmaOrdered By: Elpidio Whipple on 02-29-2024 Glucose [Mass/Vol] 164 mg/dL 70-100 [facility] Comment on above: ADA recommended refe rence rangeRandom Glucose Reference Range is dependent on time and content of last meal. Glucose of more than 200 mg/dL in a nonstressed, ambulatory subject supports the diagnosis of Diabetes Mellitus. Hematocrit Auto (Bld) [Volum e fraction]Ordered By: Elpidio Whipple on 02-29-2024 Hematocrit (Bld) [Volume fraction] 39.7 % 34.0-46.4 [facility] Hemoglobin [Mass/volume] in BloodOrdered By: Elpidio Whipple on 02-29-2024 Hemoglobin (Bld) [Mass/Vol] 13.4 g/dL 11.8-15.4 [facility] Ketones Auto test strip (U) [Mass/Vol]Ordered By: Elpidio Whipple on 02-29-2024 Ketones (U) [Mass/Vol] Negative [facility] - UrinalysisOrder ed By: Elpidio Whipple on 02-29-2024 Hyaline casts LM Ql (Urine sed) 0-8 [LPF] 0-8 [facility] Leukocytes [#/volume] correc praneeth for nucleated erythrocytes in Blood by Automated counOrdered By: Elpidio Whipple on 02-29-2024 WBC corrected for nucl RBC Auto (Bld) [#/Vol] 4.5 10*3/uL 3.8-11.6 [facility] MCH Auto (RBC) [Entitic mass ]Ordered By: Elpidio Whipple on 02-29-2024 MCH (RBC) [Entitic mass] 29.1 pg 24.7-34.3 [facility] MCHC Auto (RBC) [Mass/Vol]Or dered By: Elpidio Whipple on 02-29-2024 MCHC (RBC) [Mass/Vol] 33.8 g/dL 32.0-35.0 [facility] MCV Auto (RBC) [Entitic vol] Ordered By: Elpidio Whipple on 02-29-2024 MCV (RBC) [Entitic vol] 86.2 fL 80-100 [facility] Magnesium [Mass/volume] in S john or PlasmaOrdered By: Elpidio Whipple on 02-29-2024 Magnesium [Mass/Vol] 1.6 mg/dL 1.9-2.7 [facility] Nitrite Test strip Ql (U)Ord ered By: Elpidio Whipple on 02-29-2024 Nitrite Ql (U) Negative Negative [facility] No Panel InformationOrdered By: Elpidio Whipple on 02-29-2024 Estimated GFR (CKD-EPI) 51.377 mL/Min [facility] Creatinine Clearance (Chem N/A [facility] Parathyrin.intact [Mass/volu me] in Serum or PlasmaOrdered By: lEpidio Whipple on 02-29-2024 Parathyrin.intact [Mass/Vol] 53.1 pg/mL 12-88 [facility] Phosphate [Mass/volume] in S john or PlasmaOrdered By: Elpidio Whipple on 02-29-2024 Phosphate [Mass/Vol] 2.8 mg/dL 2.5-4.5 [facility] Platelet mean volume Auto (B ld) [Entitic vol]Ordered By: Elpidio Whipple on 02-29-2024 Platelet mean volume (Bld) [Entitic vol] 9.5 fL 6.3-10.7 [facility] Platelets Auto (Bld) [#/Vol] Ordered By: Elpidio Whipple on 02-29-2024 Platelets (Bld) [#/Vol] 174 10*3/uL 150-450 [facility] Potassium [Moles/volume] in Serum or PlasmaOrdered By: Elpidio Whipple on 02-29-2024 Potassium [Moles/Vol] 4.6 mmol/L 3.5-5.1 [facility] Protein Auto test strip (U) [Mass/Vol]Ordered By: Elpidio Whipple on 02-29-2024 Protein (U) [Mass/Vol] 30 mg/dL Negative [facility] Protein [Mass/volume] in Uri neOrdered By: Elpidio Whipple on 02-29-2024 Protein (U) [Mass/Vol] 43 mg/dL 0-9 [facility] RBC Auto (Bld) [#/Vol]Ordere d By: Elpidio Whipple on 02-29-2024 RBC (Bld) [#/Vol] 4.61 10*6/uL 3.60-5.00 [facility] Serum or plasma anion gap de terminationOrdered By: Elpidio Whipple on 02-29-2024 Anion gap [Moles/Vol] 11.2 mmol/L 6.0-15.0 [facility] Sodium [Moles/volume] in Ser um or PlasmaOrdered By: Elpidio Whipple on 02-29-2024 Sodium [Moles/Vol] 140 mmol/L 136-145 [facility] Specific gravity Auto test s trip (U) [Rel density]Ordered By: Elpidio Whipple on 02-29-2024 Specific gravity (U) [Rel density] 1.019 1.001-1.030 [facility] Squamous epithelial cells de tection in urine sediment by light microscopyOrdered By: Elpidio Whipple on 02-29-2024 Epithelial cells.squamous LM Ql (Urine sed) 10-19 [HPF] 0-2 [facility] Urate [Mass/volume] in Serum or PlasmaOrdered By: Elpidio Whipple on 02-29-2024 Urate [Mass/Vol] 7.1 mg/dL 2.3-6.6 [facility] Urea nitrogen [Mass/volume] in Serum or PlasmaOrdered By: Elpidio Whipple on 02-29-2024 Urea nitrogen [Mass/Vol] 29 mg/dL 7-25 [facility] Urine bacteria detection by automated methodOrdered By: Elpidio Whipple on 02-29-2024 Bacteria Auto Ql (U) None seen None Seen [facility] Urine clarity by refractomet ry automatedOrdered By: Elpidio Whipple on 02-29-2024 Clarity Refractometry automated (U) Clear Clear [facility] Urine culture routineOrdered By: Elpidio Whipple on 02-29-2024 Bacteria identified Cx Nom (U) 2 Days [facility] Urine glucose measurement by automated test strip (mass/volume)Ordered By: Elpidio Whipple on 02-29-2024 Glucose Auto test strip (U) [Mass/Vol] Normal mg/dL Normal [facility] Urine hemoglobin detection b y automated test stripOrdered By: Elpidio Whipple on 02-29-2024 Hemoglobin Auto test strip Ql (U) Negative Negative [facility] Urine leukocyte esterase det ection by automated test stripOrdered By: Elpidio Whipple on 02-29-2024 Leukocyte esterase Auto test strip Ql (U) 2+ Negative [facility] Urine protein/creatinine rat ioOrdered By: Elpidio Whipple on 02-29-2024 Protein/Creatinine (U) [Ratio] 426 mg/g{Cre} 0-200 [facility] Urobilinogen Auto test strip (U) [Mass/Vol]Ordered By: Elpidio Whipple on 02-29-2024 Urobilinogen (U) [Mass/Vol] Normal mg/dL Normal [facility] Vitamin D+Metabolites [Mass/ volume] in Serum or PlasmaOrdered By: Elpidio Whipple on 02-29-2024 Vitamin D+Metabolites [Mass/Vol] 48.0 ng/mL 30-100 [facility] Comment on above: VITAMIN D STATUS 25( [place])VITAMIN D RANGE (ng/mL) Deficient <20 Insufficient 20 to <30Sufficient 30 to 100Reference: Nayeli MF,Hannah SCHREIBER, Jose GILBERT, et al. Evaluation,treatment, and prevention of vitamin D deficiency; an Endocrine Society clinical practice guideline. JCEM. 2010; 96(7):1911-30. pH Auto test strip (U)Ordere d By: Elpidio Whipple on 02-29-2024 pH (U) 5.5 [pH] 5.0-9.0 [facility] RSVon 12-30-2023 RSV Ag IA Ql (Unsp spec) Negative [facility] Other Alanine aminotransferase [En zymatic activity/volume] in Serum or PlasmaOrdered By: Charan Casey on 11-26-2023 ALT [Catalytic activity/Vol] 16 U/L 7-52 [facility] Albumin [Mass/volume] in Ser um or Plasma by Bromocresol green (BCG) dye binding methoOrdered By: Charan Casey on 11-26-2023 Albumin BCG dye [Mass/Vol] 4.2 g/dL 3.5-5.7 [facility] Alkaline phosphatase [Enzyma tic activity/volume] in Serum or PlasmaOrdered By: Charan Casey on 11-26-2023 ALP [Catalytic activity/Vol] 65 U/L 34-104 [facility] Aspartate aminotransferase [ Enzymatic activity/volume] in Serum or PlasmaOrdered By: Charan Casey on 11-26-2023 AST [Catalytic activity/Vol] 16 U/L 13-39 [facility] Bilirubin.total [Mass/volume ] in Serum or PlasmaOrdered By: Charan Casey on 11-26-2023 Bilirubin [Mass/Vol] 0.6 mg/dL 0.3-1.0 [facility] Calcium [Mass/volume] in Ser um or PlasmaOrdered By: Charan Casey on 11-26-2023 Calcium [Mass/Vol] 9.8 mg/dL 8.6-10.3 [facility] Carbon dioxide, total [Moles /volume] in Serum or PlasmaOrdered By: Charan Casey on 11-26-2023 CO2 [Moles/Vol] 34.6 mmol/L 21.0-31.0 [facility] Chloride [Moles/volume] in S john or PlasmaOrdered By: Charan Casey on 11-26-2023 Chloride [Moles/Vol] 101 mmol/L 98-107 [facility] Cholesterol [Mass/volume] in Serum or PlasmaOrdered By: Charan Casey on 11-26-2023 Cholesterol [Mass/Vol] 140 mg/dL 140-200 [facility] Comment on above: Chol less than 200 m g/dl low riskChol 201-239 mg/dl borderline riskChol 240 mg/dl and greater high risk Cholesterol in LDL Calc [Mas s/Vol]Ordered By: Charan Casey on 11-26-2023 Cholesterol in LDL [Mass/Vol] 56 mg/dL 0-100 [facility] Comment on above: LDL ATP III CLASSIFI CATIONLDL less than 100 mg/dL OptimalLDL 100-129 mg/dL Near or above optimalLDL 130-159 mg/dL Borderline highLDL 160-189 mg/dL HighLDL greater than 189 mg/dL Very high Cholesterol in VLDL Calc [Ma ss/Vol]Ordered By: Charan Casey on 11-26-2023 Cholesterol in VLDL [Mass/Vol] 45 mg/dL [facility] Creatinine [Mass/volume] in Serum or PlasmaOrdered By: Charan Casey on 11-26-2023 Creatinine [Mass/Vol] 1.25 mg/dL 0.60-1.20 [facility] Globulin Calc (S) [Mass/Vol] Ordered By: Charan Casey on 11-26-2023 Globulin (S) [Mass/Vol] 2.6 g/dL [facility] Glucose [Mass/volume] in Ser um or PlasmaOrdered By: Charan Casey on 11-26-2023 Glucose [Mass/Vol] 122 mg/dL 70-100 [facility] Comment on above: ADA recommended refe rence rangeRandom Glucose Reference Range is dependent on time and content of last meal. Glucose of more than 200 mg/dL in a nonstressed, ambulatory subject supports the diagnosis of Diabetes Mellitus. No Panel InformationOrdered By: Charan Casey on 11-26-2023 Estimated GFR (CKD-EPI) 48.432 mL/Min [facility] Creatinine Clearance (Chem N/A [facility] Potassium [Moles/volume] in Serum or PlasmaOrdered By: Charan Casey on 11-26-2023 Potassium [Moles/Vol] 4.6 mmol/L 3.5-5.1 [facility] Protein [Mass/volume] in Ser um or PlasmaOrdered By: Charan Casey on 11-26-2023 Protein [Mass/Vol] 6.8 g/dL 6.4-8.9 [facility] Serum or plasma albumin/glob ulin mass ratioOrdered By: Charan Casey on 11-26-2023 Albumin/Globulin [Mass ratio] 1.6 {ratio} [facility] Serum or plasma anion gap de terminationOrdered By: Charan Casey on 11-26-2023 Anion gap [Moles/Vol] 9.0 mmol/L 6.0-15.0 [facility] Serum or plasma high density lipoprotein (HDL) cholesterol measurementOrdered By: Charan Casey on 11-26-2023 Cholesterol in HDL [Mass/Vol] 39 mg/dL 23-92 [facility] Comment on above: HDL CHOL ATP-III CLA SSIFICATION Cardiovascular RiskHDL > or equal to 60 mg/dL LOWHDL < 40 mg/dL HIGH Serum or plasma total choles terol/high density lipoprotein (HDL) cholesterol mass ratOrdered By: Charan Casey on 11-26-2023 Cholesterol.total/Mary sterol in HDL [Mass ratio] 3.6 {ratio} <5.0 [facility] Sodium [Moles/volume] in Ser um or PlasmaOrdered By: Charan Casey on 11-26-2023 Sodium [Moles/Vol] 140 mmol/L 136-145 [facility] Triglyceride [Mass/volume] i n Serum or PlasmaOrdered By: Charan Casey on 11-26-2023 Triglyceride [Mass/Vol] 227 mg/dL 0-149 [facility] Comment on above: TRIG ATP III CLASSIF ICATIONTRIG less than 150 mg/dL NormalTRIG 150-199 mg/dL Borderline highTRIG 200-500 mg/dL High TRIG greater than 500 mg/dL Very highStandard traceable to the Center for Disease Conrtrol and Prevention (CDC) test method. Urea nitrogen [Mass/volume] in Serum or PlasmaOrdered By: Charan Casey on 11-26-2023 Urea nitrogen [Mass/Vol] 32 mg/dL 06-23 [facility] Glucose Glucometer (BldC) [M ass/Vol]Ordered By: Yasmeen Treadwell on 10-06-2023 Glucose [Mass/Vol] 150 mg/dL [facility] Comment on above: Random Glucose Refer ence Range is dependent on time and content of last meal. Glucose of more than 200 mg/dL in a nonstressed, ambulatory subject supports the diagnosis of Diabetes Mellitus. Albumin [Mass/volume] in Ser um or Plasma by Bromocresol green (BCG) dye binding methoOrdered By: Elpidio Whipple on 09-14-2023 Albumin BCG dye [Mass/Vol] 4.5 g/dL 3.5-5.7 [facility] Automated erythrocytes count in urine sediment (number/area)Ordered By: Elpidio Whipple on 09-14-2023 RBC Auto (Urine sed) [#/Area] None seen [HPF] 0-4 [facility] Automated leukocytes count i n urine sediment (number/area)Ordered By: Elpidio Whipple on 09-14-2023 WBC Auto (Urine sed) [#/Area] 1-2 [HPF] 0-4 [facility] Bilirubin Test strip Ql (U)O rdered By: Elpidio Whipple on 09-14-2023 Bilirubin Ql (U) Negative Negative [facility] Calcium [Mass/volume] in Ser um or PlasmaOrdered By: Elpidio Whipple on 09-14-2023 Calcium [Mass/Vol] 9.5 mg/dL 8.6-10.3 [facility] Carbon dioxide, total [Moles /volume] in Serum or PlasmaOrdered By: Elpidio Whipple on 09-14-2023 CO2 [Moles/Vol] 29.7 mmol/L 21.0-31.0 [facility] Chloride [Moles/volume] in S john or PlasmaOrdered By: Elpidio Whipple on 09-14-2023 Chloride [Moles/Vol] 106 mmol/L 98-107 [facility] Color Auto (U)Ordered By: Ab rahul Whipple on 09-14-2023 Color (U) Dark yellow Yellow [facility] Creatinine [Mass/volume] in Serum or PlasmaOrdered By: Elpidio Whipple on 09-14-2023 Creatinine [Mass/Vol] 1.29 mg/dL 0.60-1.20 [facility] Creatinine [Mass/volume] in UrineOrdered By: Elpidio Whipple on 09-14-2023 Creatinine (U) [Mass/Vol] 87.0 mg/dL 11.0-20.0 [facility] Erythrocyte distribution wid th Auto (RBC) [Ratio]Ordered By: Elpidio Whipple on 09-14-2023 Erythrocyte distribution width (RBC) [Ratio] 13.5 % 11.9-15.3 [facility] Glucose [Mass/volume] in Ser um or PlasmaOrdered By: Elpidio Whipple on 09-14-2023 Glucose [Mass/Vol] 97 mg/dL 70-100 [facility] Comment on above: ADA recommended refe rence rangeRandom Glucose Reference Range is dependent on time and content of last meal. Glucose of more than 200 mg/dL in a nonstressed, ambulatory subject supports the diagnosis of Diabetes Mellitus. Hematocrit Auto (Bld) [Volum e fraction]Ordered By: Elpidio Whipple on 09-14-2023 Hematocrit (Bld) [Volume fraction] 42.7 % 34.0-46.4 [facility] Hemoglobin [Mass/volume] in BloodOrdered By: Elpidio Whipple on 09-14-2023 Hemoglobin (Bld) [Mass/Vol] 14.3 g/dL 11.8-15.4 [facility] Ketones Auto test strip (U) [Mass/Vol]Ordered By: Elpidio Whipple on 09-14-2023 Ketones (U) [Mass/Vol] Negative Negative [facility] - UrinalysisOrder ed By: Elpidio Whipple on 09-14-2023 Hyaline casts LM Ql (Urine sed) 0-8 [LPF] 0-8 [facility] Leukocytes [#/volume] correc praneeth for nucleated erythrocytes in Blood by Automated counOrdered By: Elpidio Whipple on 09-14-2023 WBC corrected for nucl RBC Auto (Bld) [#/Vol] 7.7 10*3/uL 3.8-11.6 [facility] MCH Auto (RBC) [Entitic mass ]Ordered By: Elpidio Whipple on 09-14-2023 MCH (RBC) [Entitic mass] 29.1 pg 24.7-34.3 [facility] MCHC Auto (RBC) [Mass/Vol]Or dered By: Eplidio Whipple on 09-14-2023 MCHC (RBC) [Mass/Vol] 33.6 g/dL 32.0-35.0 [facility] MCV Auto (RBC) [Entitic vol] Ordered By: Elpidio Whipple on 09-14-2023 MCV (RBC) [Entitic vol] 86.5 fL 80-100 [facility] Magnesium [Mass/volume] in S john or PlasmaOrdered By: Elpidio Whipple on 09-14-2023 Magnesium [Mass/Vol] 1.9 mg/dL 1.9-2.7 [facility] Nitrite Test strip Ql (U)Ord ered By: Elpidio Whipple on 09-14-2023 Nitrite Ql (U) Negative Negative [facility] No Panel InformationOrdered By: Elpidio Whipple on 09-14-2023 Estimated GFR (CKD-EPI) 46.926 mL/Min [facility] Creatinine Clearance (Chem N/A [facility] Parathyrin.intact [Mass/volu me] in Serum or PlasmaOrdered By: Elpidio Whipple on 09-14-2023 Parathyrin.intact [Mass/Vol] 133.6 pg/mL 12-88 [facility] Phosphate [Mass/volume] in S john or PlasmaOrdered By: Elpidio Silvadir on 09-14-2023 Phosphate [Mass/Vol] 3.4 mg/dL 3.7-7.2 [facility] Platelet mean volume Auto (B ld) [Entitic vol]Ordered By: Elpidio Sole on 09-14-2023 Platelet mean volume (Bld) [Entitic vol] 10.0 fL 6.3-10.7 [facility] Platelets Auto (Bld) [#/Vol] Ordered By: Elpidio Sole on 09-14-2023 Platelets (Bld) [#/Vol] 193 10*3/uL 150-450 [facility] Potassium [Moles/volume] in Serum or PlasmaOrdered By: Elpidio Sole on 09-14-2023 Potassium [Moles/Vol] 4.7 mmol/L 3.5-5.1 [facility] Protein Auto test strip (U) [Mass/Vol]Ordered By: Elpidio Sole on 09-14-2023 Protein (U) [Mass/Vol] Negative Negative [facility] Protein [Mass/volume] in Uri neOrdered By: Elpidio Sole on 09-14-2023 Protein (U) [Mass/Vol] 12 mg/dL 0-9 [facility] RBC Auto (Bld) [#/Vol]Ordere d By: Elpidio Sole on 09-14-2023 RBC (Bld) [#/Vol] 4.93 10*6/uL 3.60-5.00 [facility] Serum or plasma anion gap de terminationOrdered By: Elpidio Sole on 09-14-2023 Anion gap [Moles/Vol] 11.0 mmol/L 6.0-15.0 [facility] Sodium [Moles/volume] in Ser um or PlasmaOrdered By: Elpidio Sole on 09-14-2023 Sodium [Moles/Vol] 142 mmol/L 136-145 [facility] Specific gravity Auto test s trip (U) [Rel density]Ordered By: Elpidio Sole on 09-14-2023 Specific gravity (U) [Rel density] 1.020 1.001-1.030 [facility] Squamous epithelial cells de tection in urine sediment by light microscopyOrdered By: Elpidio Whipple on 09-14-2023 Epithelial cells.squamous LM Ql (Urine sed) 3-4 [HPF] 0-2 [facility] Urate [Mass/volume] in Serum or PlasmaOrdered By: Elpidio Whipple on 09-14-2023 Urate [Mass/Vol] 6.2 mg/dL 2.3-6.6 [facility] Urea nitrogen [Mass/volume] in Serum or PlasmaOrdered By: Elpidio Whipple on 09-14-2023 Urea nitrogen [Mass/Vol] 46 mg/dL 7-25 [facility] Urine bacteria detection by automated methodOrdered By: Elpidio Whipple on 09-14-2023 Bacteria Auto Ql (U) None seen None Seen [facility] Urine clarity by refractomet ry automatedOrdered By: Elpidio Whipple on 09-14-2023 Clarity Refractometry automated (U) Clear Clear [facility] Urine glucose measurement by automated test strip (mass/volume)Ordered By: Elpidio Whipple on 09-14-2023 Glucose Auto test strip (U) [Mass/Vol] Normal mg/dL Normal [facility] Urine hemoglobin detection b y automated test stripOrdered By: Elpidio Whipple on 09-14-2023 Hemoglobin Auto test strip Ql (U) Negative Negative [facility] Urine leukocyte esterase det ection by automated test stripOrdered By: Elpidio Whipple on 09-14-2023 Leukocyte esterase Auto test strip Ql (U) 1+ Negative [facility] Urine protein/creatinine rat ioOrdered By: Elpidio Whipple on 09-14-2023 Protein/Creatinine (U) [Ratio] 138 mg/g{Cre} 0-200 [facility] Urobilinogen Auto test strip (U) [Mass/Vol]Ordered By: Elpidio Whipple on 09-14-2023 Urobilinogen (U) [Mass/Vol] Normal mg/dL Normal [facility] Vitamin D+Metabolites [Mass/ volume] in Serum or PlasmaOrdered By: Elpidio Whipple on 09-14-2023 Vitamin D+Metabolites [Mass/Vol] 50.6 ng/mL 30-100 [facility] Comment on above: VITAMIN D STATUS 25( [place])VITAMIN D RANGE (ng/mL) Deficient <20 Insufficient 20 to <30Sufficient 30 to 100Reference: Nayeli MF,Hannah SCHREIBER, Jose GILBERT, et al. Evaluation,treatment, and prevention of vitamin D deficiency; an Endocrine Society clinical practice guideline. JCEM. 2010; 96(7):1911-30. pH Auto test strip (U)Ordere d By: Elpidio Whipple on 09-14-2023 pH (U) 5.5 [pH] 5.0-9.0 [facility] Urine 10 SGon 05-19-2023 Albumin DL <= 20 mg/L (U) [Mass/Vol] Negative [facility] Other pH (U) 6.0 [pH] [facility] Other Urine 10 SG Negative [facility] Other Urine 10 SG 1.010 [facility] Other Urine 10 SG 0.2 [facility] Other Height or Weight NOT Doneon 04-30-2023 Adult depression screening assessment No [facility] [employer] DO Work Phone: Fall risk assessment a) No falls within the last year [facility] [employer] 250 DO Work Phone: Tobacco use status [facility] b) No [facility] [employer] DO Work Phone: Office Visit (Cardiology)on 04-30-2023 [...] any trouble since her angioplasty. She has Tmunbuq-Sbhgd-Ubhhu disease and had recent surgery on the [...] machine patient has been compliant with it. 7?Nmcnsww-Iowal-Tlylh joint in the ankles status post recent [...] TABLET DAILY. Vitamin D (Ergocalciferol) 1.25 MG (19282 UT) Oral CapsuleTake 1 tablet twice weekly Allergies Medication Erythromycin Base TABS Adverse Reaction; Gatrointestinal upset; Updated By: Adrianna Emanuel; (more content not included)... Normal [facility] POINT OF CARE GLUCOSEon 03-30 Glucose [Mass/Vol] 215 mg/dL Critically high 74-106 [facility] Comment on above: Performed By: #### P OCGLUC ####[facility] [address] [address]Dr. Tere Soto PROF CHEM 8 (BAS METB)on Anion gap [Moles/Vol] 9.6 mmol/L Normal [facility] Comment on above: Performed By: #### B MP ####[facility] [address] [place], [place] [address]Dr. Tere Soto Calcium [Mass/Vol] 10.3 mg/dL Critically high 8.5-10.1 [facility] Comment on above: Performed By: #### B MP ####[facility] [address] [place], [place] [address]Dr. Tere Soto Chloride [Moles/Vol] 103 mmol/L Normal 98-107 [facility] Comment on above: Performed By: #### B MP ####[facility] [address] [place], [place] [address]Dr. Tere Soto CO2 [Moles/Vol] 31.0 mmol/L Normal 21.0-32.0 [facility] Comment on above: Performed By: #### B MP ####[facility] [address] [place], [place] [address]Dr. Tere Soto Creatinine [Mass/Vol] 1.48 mg/dL Critically high 0.55-1.02 [facility] Comment on above: Performed By: #### B MP ####[facility] [address] [place], [place] [address]Dr. Tere Soto EGFR-AF VENEZUELAN 43 mL/min/1.73m2 Critically low >=60 [facility] Comment on above: Performed By: #### B MP ####[facility] [address] [place], [place] [address]Dr. Tere Soto EGFR-NON AF VENEZUELAN 36 mL/min/1.73m2 Critically low >=60 [facility] Comment on above: Performed By: #### B MP ####[facility] [address] [place], [place] [address]Oq. Tere Stoo Glucose [Mass/Vol] 173 mg/dL Critically high 74-106 [facility] Comment on above: Performed By: #### B MP ####[facility] [address] [place], [place] [address]Zn. Tere Soto Potassium [Moles/Vol] 4.6 mmol/L Normal 3.5-5.1 [facility] Comment on above: Performed By: #### B MP ####[facility] [address] [id number]. Tere Soto Sodium [Moles/Vol] 139 mmol/L Normal 136-145 [facility] Comment on above: Performed By: #### B MP ####[facility] [address] [address]Dr. Tere Soto Urea nitrogen [Mass/Vol] 63.0 mg/dL Critically high 7.0-18.0 [facility] Comment on above: Performed By: #### B MP ####[facility] [address] [place] [id number]. Tere Soto Urea nitrogen/Creatinine [Mass ratio] 42.6 mg/mg Normal [facility] Comment on above: Performed By: #### B MP ####[facility] [address] [place] [id number]. Tere Soto CT FOOT LT WO CONon [...] by: BLANKA OLGUIN Date: 2023-03-23 14:59 Normal [facility] Albumin [Mass/volume] in Ser um or Plasma by Bromocresol green (BCG) dye binding methoOrdered By: Elpidio Whipple on 03-06-2023 Albumin BCG dye [Mass/Vol] 4.7 g/dL 3.5-5.7 [facility] Automated erythrocytes count in urine sediment (number/area)Ordered By: Elpidio Whipple on 03-06-2023 RBC Auto (Urine sed) [#/Area] None seen [HPF] 0-4 [facility] Automated leukocytes count i n urine sediment (number/area)Ordered By: Elpidio Whipple on 03-06-2023 WBC Auto (Urine sed) [#/Area] 5-9 [HPF] 0-4 [facility] Bilirubin Test strip Ql (U)O rdered By: lEpidio Whipple on 03-06-2023 Bilirubin Ql (U) Negative Negative [facility] Calcium [Mass/volume] in Ser um or PlasmaOrdered By: Elpidio Whipple on 03-06-2023 Calcium [Mass/Vol] 10.2 mg/dL 8.6-10.3 [facility] Carbon dioxide, total [Moles /volume] in Serum or PlasmaOrdered By: Elpidio Whipple on 03-06-2023 CO2 [Moles/Vol] 28.4 mmol/L 21.0-31.0 [facility] Chloride [Moles/volume] in S john or PlasmaOrdered By: Elpidio Whipple on 03-06-2023 Chloride [Moles/Vol] 104 mmol/L 98-107 [facility] Color Auto (U)Ordered By: Ab rahul Whipple on 03-06-2023 Color (U) Dark yellow Yellow [facility] Creatinine [Mass/volume] in Serum or PlasmaOrdered By: Elpidio Whipple on 03-06-2023 Creatinine [Mass/Vol] 1.22 mg/dL 0.60-1.20 [facility] Creatinine [Mass/volume] in UrineOrdered By: Elpidio Whipple on 03-06-2023 Creatinine (U) [Mass/Vol] 98.0 mg/dL [facility] Comment on above: No reference range e stablished Erythrocyte distribution wid th Auto (RBC) [Ratio]Ordered By: Elpidio Whipple on 03-06-2023 Erythrocyte distribution width (RBC) [Ratio] 13.8 % 11.9-15.3 [facility] Glucose [Mass/volume] in Ser um or PlasmaOrdered By: Elpidio Whipple on 03-06-2023 Glucose [Mass/Vol] 101 mg/dL 70-100 [facility] Comment on above: ADA recommended refe rence rangeRandom Glucose Reference Range is dependent on time and content of last meal. Glucose of more than 200 mg/dL in a nonstressed, ambulatory subject supports the diagnosis of Diabetes Mellitus. Hematocrit Auto (Bld) [Volum e fraction]Ordered By: Elpidio Whipple on 03-06-2023 Hematocrit (Bld) [Volume fraction] 38.1 % 34.0-46.4 [facility] Hemoglobin [Mass/volume] in BloodOrdered By: Elpidio Whipple 03-06-2023 Hemoglobin (Bld) [Mass/Vol] 12.7 g/dL 11.8-15.4 [facility] Ketones Auto test strip (U) [Mass/Vol]Ordered By: Elpidio Whipple on 03-06-2023 Ketones (U) [Mass/Vol] Negative Negative [facility] - UrinalysisOrder ed By: Elpidio Whipple on 03-06-2023 Hyaline casts LM Ql (Urine sed) 0-8 [LPF] 0-8 [facility] Leukocytes [#/volume] correc praneeth for nucleated erythrocytes in Blood by Automated counOrdered By: Elpidio Whipple on 03-06-2023 WBC corrected for nucl RBC Auto (Bld) [#/Vol] 5.4 10*3/uL 3.8-11.6 [facility] MCH Auto (RBC) [Entitic mass ]Ordered By: Elpidio Whipple on 03-06-2023 MCH (RBC) [Entitic mass] 28.1 pg 24.7-34.3 [facility] MCHC Auto (RBC) [Mass/Vol]Or dered By: Elpidio Whipple on 03-06-2023 MCHC (RBC) [Mass/Vol] 33.3 g/dL 32.0-35.0 [facility] MCV Auto (RBC) [Entitic vol] Ordered By: Elpidio Whiplpe on 03-06-2023 MCV (RBC) [Entitic vol] 84.5 fL 80-100 [facility] Magnesium [Mass/volume] in S john or PlasmaOrdered By: Elpidio Whipple on 03-06-2023 Magnesium [Mass/Vol] 1.5 mg/dL 1.9-2.7 [facility] Nitrite Test strip Ql (U)Ord ered By: Elpidio Whipple on 03-06-2023 Nitrite Ql (U) Negative Negative [facility] No Panel InformationOrdered By: Elpidio Whipple on 03-06-2023 Estimated GFR (CKD-EPI) 50.176 mL/Min [facility] Creatinine Clearance (Chem N/A [facility] Parathyrin.intact [Mass/volu me] in Serum or PlasmaOrdered By: Elpidio Whipple on 03-06-2023 Parathyrin.intact [Mass/Vol] 43.8 pg/mL 12-88 [facility] Phosphate [Mass/volume] in S john or PlasmaOrdered By: Elpidio Whipple on 03-06-2023 Phosphate [Mass/Vol] 4.3 mg/dL 3.7-7.2 [facility] Platelet mean volume Auto (B ld) [Entitic vol]Ordered By: Elpidio Whipple on 03-06-2023 Platelet mean volume (Bld) [Entitic vol] 8.7 fL 6.3-10.7 [facility] Platelets Auto (Bld) [#/Vol] Ordered By: Elpidio Sole on 03-06-2023 Platelets (Bld) [#/Vol] 191 10*3/uL 150-450 [facility] Potassium [Moles/volume] in Serum or PlasmaOrdered By: Elpidio Sole on 03-06-2023 Potassium [Moles/Vol] 4.0 mmol/L 3.5-5.1 [facility] Protein Auto test strip (U) [Mass/Vol]Ordered By: Elpidio Sole on 03-06-2023 Protein (U) [Mass/Vol] Negative Negative [facility] Protein [Mass/volume] in Uri neOrdered By: Elpidio Sole on 03-06-2023 Protein (U) [Mass/Vol] 8 mg/dL 0-9 [facility] RBC Auto (Bld) [#/Vol]Ordere d By: Elpidio Sole on 03-06-2023 RBC (Bld) [#/Vol] 4.51 10*6/uL 3.60-5.00 [facility] Serum or plasma anion gap de terminationOrdered By: Elpidio Sole on 03-06-2023 Anion gap [Moles/Vol] 12.6 mmol/L 6.0-15.0 [facility] Sodium [Moles/volume] in Ser um or PlasmaOrdered By: Elpidio Sole on 03-06-2023 Sodium [Moles/Vol] 141 mmol/L 136-145 [facility] Specific gravity Auto test s trip (U) [Rel density]Ordered By: Elpidio Zarater on 03-06-2023 Specific gravity (U) [Rel density] 1.017 1.001-1.030 [facility] Squamous epithelial cells de tection in urine sediment by light microscopyOrdered By: Elpidio Zarater on 03-06-2023 Epithelial cells.squamous LM Ql (Urine sed) 5-9 [HPF] 0-2 [facility] Urate [Mass/volume] in Serum or PlasmaOrdered By: Elpidio Sole on 03-06-2023 Urate [Mass/Vol] 6.7 mg/dL 2.3-6.6 [facility] Urea nitrogen [Mass/volume] in Serum or PlasmaOrdered By: Elpidio Whipple on 03-06-2023 Urea nitrogen [Mass/Vol] 37 mg/dL 7-25 [facility] Urine bacteria detection by automated methodOrdered By: Elpidio Whipple on 03-06-2023 Bacteria Auto Ql (U) None seen None Seen [facility] Urine clarity by refractomet ry automatedOrdered By: Elpidio Whipple on 03-06-2023 Clarity Refractometry automated (U) Clear Clear [facility] Urine culture routineOrdered By: Elpidio Whipple on 03-06-2023 Bacteria identified Cx Nom (U) 2 Days [facility] Urine glucose measurement by automated test strip (mass/volume)Ordered By: Elpidio Whipple on 03-06-2023 Glucose Auto test strip (U) [Mass/Vol] Normal mg/dL Normal [facility] Urine hemoglobin detection b y automated test stripOrdered By: Elpidio Whipple on 03-06-2023 Hemoglobin Auto test strip Ql (U) Negative Negative [facility] Urine leukocyte esterase det ection by automated test stripOrdered By: Elpidio Whipple on 03-06-2023 Leukocyte esterase Auto test strip Ql (U) 2+ Negative [facility] Urine protein/creatinine rat ioOrdered By: Elpidio Whipple on 03-06-2023 Protein/Creatinine (U) [Ratio] 82 mg/g{Cre} 0-200 [facility] Urobilinogen Auto test strip (U) [Mass/Vol]Ordered By: Elpidio Whipple on 03-06-2023 Urobilinogen (U) [Mass/Vol] Normal mg/dL Normal [facility] Vitamin D+Metabolites [Mass/ volume] in Serum or PlasmaOrdered By: Elpidio Whipple on 03-06-2023 Vitamin D+Metabolites [Mass/Vol] 46.0 ng/mL 30-100 [facility] Comment on above: VITAMIN D STATUS 25( [place])VITAMIN D RANGE (ng/mL) Deficient <20 Insufficient 20 to <30Sufficient 30 to 100Reference: Nayeli MF,Hannah NC, Jose GILBERT, et al. Evaluation,treatment, and prevention of vitamin D deficiency; an Endocrine Society clinical practice guideline. JCEM. 2010; 96(7):1911-30. pH Auto test strip (U)Ketan scott By: Elpidio Whipple on 03-06-2023 pH (U) 5.5 [pH] 5.0-9.0 [facility] XR FOOT LAURA MIN 3 VIEWSon [...] by: BRODERICK FLOR Date: 2023-02-17 14:34 Normal [facility] CBC AUTO DIFFon 12-23-2022 BASO # 0.0 103/ul Normal 0.0-0.1 [facility] Comment on above: Performed By: #### C BC #### [facility] [address] [address] [address] Tere Soto Basophils/100 WBC (Bld) 0.6 % Normal 0.2-2.0 [facility] Comment on above: Performed By: #### C BC #### [facility] [address] [address] [address] Tere Soto EO # 0.1 103/ul Normal 0.0-0.7 [facility] Comment on above: Performed By: #### C BC #### [facility] [address] [place] [address] Dr. Tere Soto Eosinophils/100 WBC (Bld) 2.9 % Normal 0.9-7.0 [facility] Comment on above: Performed By: #### C BC #### [facility] [address] [place] [address] Dr. Tere Soto Erythrocyte distribution width (RBC) [Ratio] 13.2 % Normal 11.0-15.0 [facility] Comment on above: Performed By: #### C BC #### [facility] [address] [place] [address] Dr. Tere Soto Hematocrit (Bld) [Volume fraction] 39.0 % Normal 36.0-48.0 [facility] Comment on above: Performed By: #### C BC #### [facility] [address] [place] [address] Dr. Tere Soto Hemoglobin (Bld) [Mass/Vol] 13.0 g/dL Normal 12.0-16.0 [facility] Comment on above: Performed By: #### C BC #### [facility] [address] [place] [address] Dr. Tere Soto IG # 0.01 10e3/ul Normal 0.00-0.03 [facility] Comment on above: Performed By: #### C BC #### [facility] [address] [place] [address] Dr. Tere Soto IG % 0.2 % Normal 0.0-0.5 [facility] Comment on above: Performed By: #### C BC #### [facility] [address] [place] [address] Dr. Tere Soto LYMPH # 2.1 103/ul Normal 1.2-3.8 [facility] Comment on above: Performed By: #### C BC #### [facility] [address] [place] [address] Dr. Tere Soto Lymphocytes/100 WBC (Bld) 42.6 % Normal 20.5-60.0 [facility] Comment on above: Performed By: #### C BC #### [facility] [address] [place] [address] Dr. Tere Soto MANUAL DIFF REQ NO Normal [facility] Comment on above: Performed By: #### C BC #### [facility] [address] [place] [address] Dr. Tere Soto MCH (RBC) [Entitic mass] 28.4 pg Normal 26.7-34.0 [facility] Comment on above: Performed By: #### C BC #### [facility] [address] [place] [address] Dr. Tere Soto MCHC (RBC) [Mass/Vol] 33.3 g/dL Normal 29.9-35.2 [facility] Comment on above: Performed By: #### C BC #### [facility] [address] [place] [address] Dr. Tere Soto MCV (RBC) [Entitic vol] 85.2 fL Normal 81.0-99.0 [facility] Comment on above: Performed By: #### C BC #### [facility] [address] [place] [address] Dr. Tere Soto MONO # 0.3 103/ul Normal 0.3-0.8 [facility] Comment on above: Performed By: #### C BC #### [facility] [address] [place] [address] Dr. Tere Soto Monocytes/100 WBC (Bld) 6.8 % Normal 1.7-12.0 [facility] Comment on above: Performed By: #### C BC #### [facility] [address] [place] [address] Dr. Tere Soto NEUT # 2.3 103/ul Normal 1.4-6.5 [facility] Comment on above: Performed By: #### C BC #### [facility] [address] [place] [address] Dr. Tere Soto Neutrophils/100 WBC (Bld) 46.9 % Normal 43.0-75.0 [facility] Comment on above: Performed By: #### C BC #### [facility] [address] [place] [address] Dr. Tere Soto Platelet mean volume (Bld) [Entitic vol] 11.3 fL Normal 9.5-13.5 [facility] Comment on above: Performed By: #### C BC #### [facility] [address] [place] [address] Dr. Tere Soto PLT 183 103/ul Normal 150-450 [facility] Comment on above: Performed By: #### C BC #### [facility] [address] [place] [address] Dr. Tere Soto RBC 4.58 106/ul Normal 4.20-5.40 [facility] Comment on above: Performed By: #### C BC #### [facility] [address] [place] [address] Dr. Tere Soto WBC 4.8 103/ul Normal 4.0-11.0 [facility] Comment on above: Performed By: #### C BC #### [facility] [address] [place] [address] Dr. Tere Soto Covid-19 PCR ([facility])on 12-01 SARS-CoV-2 (COVID-19) RNA AHMET+probe Ql (Unsp spec) Not detected Normal NOT DETECTED [facility] Comment on above: Result Comment: This test is not yet approved or cleared by the [place] FDA. When there are no FDA-approved or cleared tests available, and other criteria are met, FDA can make tests available under an emergency access mechanism called an Emergency Use Authorization (EUA). The EUA for this test is supported by the Clinical Research Physician of Health and Human Service's (HHS's) declaration [...] SARS-CoV-2. Performed By: #### C VDTB #### [facility] [address] [place] [address] Dr. Tere Soto PROF CHEM 8 (BAS METB)on Anion gap [Moles/Vol] 13.6 mmol/L Normal [facility] Comment on above: Performed By: #### B MP #### [facility] [address] [place] [address] Dr. Tere Soto Calcium [Mass/Vol] 9.6 mg/dL Normal 8.5-10.1 [facility] Comment on above: Performed By: #### B MP #### [facility] [address] [place] [address] Dr. Tere Soto Chloride [Moles/Vol] 103 mmol/L Normal 98-107 [facility] Comment on above: Performed By: #### B MP #### [facility] [address] [place] [address] Dr. Tere Soto CO2 [Moles/Vol] 28.9 mmol/L Normal 21.0-32.0 [facility] Comment on above: Performed By: #### B MP #### [facility] [address] [place] [address] Dr. Tere Soto Creatinine [Mass/Vol] 1.25 mg/dL Critically high 0.55-1.02 [facility] Comment on above: Performed By: #### B MP #### [facility] [address] [place] [address] Dr. Tere Soto EGFR-AF VENEZUELAN 53 mL/min/1.73m2 Critically low >=60 [facility] Comment on above: Performed By: #### B MP #### [facility] [address] [place] [address] Dr. Tere Soto EGFR-NON AF VENEZUELAN 43 mL/min/1.73m2 Critically low >=60 [facility] Comment on above: Performed By: #### B MP #### [facility] [address] [place] [address] Dr. Tere Soto Glucose [Mass/Vol] 121 mg/dL Critically high 74-106 [facility] Comment on above: Performed By: #### B MP #### [facility] [address] [address] [address] Tere Soto Potassium [Moles/Vol] 4.5 mmol/L Normal 3.5-5.1 [facility] Comment on above: Performed By: #### B MP #### [facility] [address] [address] [address] Tere Soto Sodium [Moles/Vol] 141 mmol/L Normal 136-145 [facility] Comment on above: Performed By: #### B MP #### [facility] [address] [address] [address] Tere Soto Urea nitrogen [Mass/Vol] 43.0 mg/dL Critically high 7.0-18.0 [facility] Comment on above: Performed By: #### B MP #### [facility] [address] [address] [address] Tere Soto Urea nitrogen/Creatinine [Mass ratio] 34.4 mg/mg Normal [facility] Comment on above: Performed By: #### B MP #### [facility] [address] [address] [address] Tere Soto PROTIMEon 12-23-2022 INR Coag (PPP) [Relative time] {INR} Normal [facility] Comment on above: Performed By: #### P T, PTT ####[facility] [id number] [address]Dr. Tere Soto INR GUIDELINES SEE BELOW Normal [facility] Comment on above: Result Comment: RUBEN RED INR: 2.0 - 3.0 CONDITIONS NOT LISTED BELOW 2.5 - 3.5 FOR PROSTHETIC HEART VALVE REPLACEMENT 2.5 - 3.5 RECURRENT THROMBOSIS Performed By: #### P T, PTT ####[facility] [id number] [id number]. Tere Soto PT Coag (PPP) [Time] 9.8 s Normal 9.0-11.6 [facility] Comment on above: Performed By: #### P T, PTT ####[facility] [id number] [place], [place] [address]ZgDerek Soto PTTon 12-23-2022 aPTT Coag (Bld) [Time] 26.5 s Normal 22.3-36.2 Th e [facility] Comment on above: Performed By: #### P T, PTT ####[facility] [id number] [place], [place] [address]J[address]rek S[address] FOOT LT WO CONon 11-26-20 [...] BRODERICK FLOR Date: 2022-11-26 16:36 Normal [facility] XR ANKLE LAURA MIN 3 VIEWSon 1 [...] BLANKA OLGUIN Date: 2022-11-13 06:32 Normal [facility] Office Visit (Cardiology)on 11-12-2022 Follow-up visit Diagnoses/Problems [...] 36.0 to 36.9 in adult (278.00,V85.36) (E66.9,Z68.36) Akbdwqo-Qdzeh-Niilc disease (356.1) (G60.0) Orders CAD (coronary artery [...] Aminotransferase, Serum; Status:Active - Retrospective Authorization; Requested for:[id number] 09:18AM; AST; Status:Active - Retrospective Authorization; Requested for:10Feb2023 09:18AM; Lipid Panel; Status:Active - Retrospective Authorization; Requested for:10Feb2023 09:18AM; Class 2 obesity with body mass index (BMI) of 36.0 to 36.9 in adult Healthy Weight Tips; Status:Complete - Retrospective Authorization; Done: [id number] Some eating tips that can help you lose weight.; Status:Complete - Retrospective Authorization; Done: [id number] SocHx: Never a smoker Tobacco Use Screening; Status:Complete; Done: [id number] Patient Instructions Please bring all medicines, vitamins, [...] Since her last visit she has developed Xshovyx-Pkkuu-Hztpv joint in the left foot and is [...] machine patient has been compliant with it. 7?Uizixbi-Atxjl-Kpysx joint in the left ankle and need [...] Methicillin resistant Staph aureus not isolated Normal [facility] Hgb A1Con 10-08-2022 HbA1c (Bld) [Mass fraction] 7.1 % High 4.0-5.6 [facility] Sedimentation Rateon Sedimentation Rate 44 mm/Hr High 0-20 [facility] C-Reactive Proteinon 022 C-Reactive Protein 0.4 mg/dL Normal 0.0-0.4 [facility] CBC With Platelet and Differ entialon 10-07-2022 Abs Imm Granulocytes 0.01 E9/L Normal [facility] Absolute Basophils 0.05 E9/L Normal 0.00-0.20 [facility] Absolute Eosinophils 0.15 E9/L Normal 0.05-0.50 [facility] Absolute Lymphocytes 2.20 E9/L Normal 1.50-4.00 [facility] Absolute Monocytes 0.35 E9/L Normal 0.10-0.95 [facility] Absolute Neutrophils 1.88 E9/L Normal 1.80-7.30 [facility] Basophils/100 WBC (Bld) 1.1 % Normal 0.0-2.0 [facility] Eosinophils/100 WBC (Bld) 3.2 % Normal 0.0-6.0 [facility] Hematocrit (Bld) [Volume fraction] 36.9 % Normal 34.0-48.0 [facility] Hemoglobin (Bld) [Mass/Vol] 12.4 g/dL Normal 11.5-15.5 [facility] Imm Granulocytes 0.2 % Normal 0.0-5.0 [facility] Lymphocytes/100 WBC (Bld) 47.4 % High 20.0-42.0 [facility] MCH (RBC) [Entitic mass] 29.7 pg Normal 26.0-35.0 [facility] MCHC 33.6 % Normal 32.0-34.5 [facility] MCV (RBC) [Entitic vol] 88.3 fL Normal 80.0-99.9 [facility] Monocytes/100 WBC (Bld) 7.5 % Normal 2.0-12.0 [facility] Neutrophils/100 WBC (Bld) 40.6 % Low 43.0-80.0 [facility] Platelet Count 208 E9/L Normal 130-450 [facility] Platelet mean volume (Bld) [Entitic vol] 11.7 fL Normal 7.0-12.0 [facility] RBC 4.18 E12/L Normal 3.50-5.50 [facility] RDW 13.3 fL Normal 11.5-15.0 [facility] WBC 4.6 E9/L Normal 4.5-11.5 [facility] Comprehensive Metabolic Pane alma 10-07-2022 Albumin [Mass/Vol] 4.3 g/dL Normal 3.5-5.2 [facility] ALP [Catalytic activity/Vol] 71 U/L Normal 35-104 [facility] ALT [Catalytic activity/Vol] 12 U/L Normal 0-32 [facility] Anion gap [Moles/Vol] 10 mmol/L Normal 7-16 [facility] AST [Catalytic activity/Vol] 19 U/L Normal 0-31 [facility] Bilirubin [Mass/Vol] 0.3 mg/dL Normal 0.0-1.2 [facility] Calcium [Mass/Vol] 10.3 mg/dL High 8.6-10.2 [facility] Chloride [Moles/Vol] 103 mmol/L Normal 98-107 [facility] CO2 [Moles/Vol] 27 mmol/L Normal 22-29 [facility] Creatinine [Mass/Vol] 1.2 mg/dL High 0.5-1.0 [facility] GFR/1.73 sq M.predicted among non-blacks MDRD (S/P/Bld) [Vol rate/Area] 51 mL/min/{1.73_m2} Normal >=60 [facility] Comment on above: Result Comment: Clifford [...] secretion. Glucose [Mass/Vol] 111 mg/dL High 74-99 [facility] Potassium [Moles/Vol] 4.6 mmol/L Normal 3.5-5.0 [facility] Protein [Mass/Vol] 7.3 g/dL Normal 6.4-8.3 [facility] Sodium [Moles/Vol] 140 mmol/L Normal 132-146 [facility] Urea nitrogen [Mass/Vol] 30 mg/dL High 6-23 [facility] Albumin [Mass/volume] in Ser um or PlasmaOrdered By: Charan Casey on 08-13-2022 Albumin [Mass/Vol] 3.9 g/dL 3.2-5.5 [facility] Automated erythrocytes count in urine sediment (number/area)Ordered By: Elpidio Whipple on 08-13-2022 RBC Auto (Urine sed) [#/Area] 0-1 [HPF] 0-4 [facility] Automated leukocytes count i n urine sediment (number/area)Ordered By: Elpidio Whipple on 08-13-2022 WBC Auto (Urine sed) [#/Area] None seen [HPF] 0-4 [facility] Basophils Auto (Bld) [#/Vol] Ordered By: Charan Casey on 08-13-2022 Basophils (Bld) [#/Vol] 0.1 10*3/uL 0.0-0.2 [facility] Basophils/100 WBC Auto (Bld) Ordered By: Charan Casey on 08-13-2022 Basophils/100 WBC (Bld) 1.0 % . [facility] Bilirubin Test strip Ql (U)O rdered By: Elpidio Whipple on 08-13-2022 Bilirubin Ql (U) Negative Negative [facility] Cholesterol [Mass/volume] in Serum or PlasmaOrdered By: Charan Casey on 08-13-2022 Cholesterol [Mass/Vol] 170 mg/dL 140-200 [facility] Comment on above: Chol less than 200 m g/dl low riskChol 201-239 mg/dl borderline riskChol 240 mg/dl and greater high risk Cholesterol in LDL Calc [Mas s/Vol]Ordered By: Charan Casey on 08-13-2022 Cholesterol in LDL [Mass/Vol] 101 mg/dL 0-100 [facility] Comment on above: LDL ATP III CLASSIFI CATIONLDL less than 100 mg/dL OptimalLDL 100-129 mg/dL Near or above optimalLDL 130-159 mg/dL Borderline highLDL 160-189 mg/dL HighLDL greater than 189 mg/dL Very high Cholesterol in VLDL Calc [Ma ss/Vol]Ordered By: Charan Casey on 08-13-2022 Cholesterol in VLDL [Mass/Vol] 41 mg/dL [facility] Color Auto (U)Ordered By: Ab rahul Whipple on 08-13-2022 Color (U) Dark yellow Yellow [facility] Creatinine [Mass/volume] in UrineOrdered By: Elpidio Whipple on 08-13-2022 Creatinine (U) [Mass/Vol] 127.6 mg/dL [facility] Comment on above: No reference range e stablished Creatinine and Glomerular fi ltration rate.predicted panel (S/P/Bld)Ordered By: Charan Casey on 08-13-2022 Creatinine [Mass/Vol] 1.41 mg/dL 0.44-1.03 Fir [facility] Eosinophils Auto (Bld) [#/Vo l]Ordered By: Charan Casey on 08-13-2022 Eosinophils (Bld) [#/Vol] 0.1 10*3/uL 0.0-0.45 [facility] Eosinophils/100 WBC Auto (Bl d)Ordered By: Charan Casey on 08-13-2022 Eosinophils/100 WBC (Bld) 1.7 % . [facility] Erythrocyte distribution wid th Auto (RBC) [Ratio]Ordered By: Charan Casey on 08-13-2022 Erythrocyte distribution width (RBC) [Ratio] 13.1 % 11.9-15.3 [facility] Estimated glomerular filtrat ion rate (GFR) non- AmericanOrdered By: Charan Casey on 08-13-2022 GFR/1.73 sq M.predicted among non-blacks MDRD (S/P/Bld) [Vol rate/Area] 38 mL/Min [facility] Globulin Calc (S) [Mass/Vol] Ordered By: Charan Casey on 08-13-2022 Globulin (S) [Mass/Vol] 3.1 g/dL [facility] Hematocrit Auto (Bld) [Volum e fraction]Ordered By: Charan Casey on 08-13-2022 Hematocrit (Bld) [Volume fraction] 38.0 % 34.0-46.4 [facility] Hemoglobin [Mass/volume] in BloodOrdered By: Charan Casey on 08-13-2022 Hemoglobin (Bld) [Mass/Vol] 12.6 g/dL 11.8-15.4 [facility] Ketones Auto test strip (U) [Mass/Vol]Ordered By: Elpidio Whipple on 08-13-2022 Ketones (U) [Mass/Vol] Negative Negative Fi [facility] Laboratory - Chemistry and C hemistry - challengeOrdered By: Elpidio Whipple on 08-13-2022 Magnesium [Mass/Vol] 1.9 mg/dL 1.6-2.6 [facility] - Hematology and Cell countsOrdered By: Charan Casey on 08-13-2022 Nucleated RBC/100 WBC (Bld) [Ratio] 0.0 % 0-0.5 [facility] - UrinalysisOrder ed By: Elpidio Whipple on 08-13-2022 Hyaline casts LM Ql (Urine sed) 0-8 [LPF] 0-8 [facility] Leukocytes [#/volume] in Blo od by Automated countOrdered By: Charan Casey on 08-13-2022 WBC (Bld) [#/Vol] 8.2 10*3/uL 4.5-11.0 [facility] Lymphocytes Auto (Bld) [#/Vo l]Ordered By: Charan Casey on 08-13-2022 Lymphocytes (Bld) [#/Vol] 2.8 10*3/uL 1.00-4.8 [facility] Lymphocytes/100 WBC Auto (Bl d)Ordered By: Charan Casey on 08-13-2022 Lymphocytes/100 WBC (Bld) 34.1 % . [facility] MCH Auto (RBC) [Entitic mass ]Ordered By: Charan Casey on 08-13-2022 MCH (RBC) [Entitic mass] 28.5 pg 24.7-34.3 [facility] MCHC Auto (RBC) [Mass/Vol]Or dered By: Charan Casey on 08-13-2022 MCHC (RBC) [Mass/Vol] 33.2 g/dL 32.0-35.0 [facility] MCV Auto (RBC) [Entitic vol] Ordered By: Charan Casey on 08-13-2022 MCV (RBC) [Entitic vol] 85.8 fL 80-100 [facility] Monocytes Auto (Bld) [#/Vol] Ordered By: Charan Casey on 08-13-2022 Monocytes (Bld) [#/Vol] 0.5 10*3/uL 0.0-0.8 [facility] Monocytes/100 WBC Auto (Bld) Ordered By: Charan Casey on 08-13-2022 Monocytes/100 WBC (Bld) 6.4 % . [facility] Neutrophils Auto (Bld) [#/Vo l]Ordered By: Chaarn Casey on 08-13-2022 Neutrophils (Bld) [#/Vol] 4.7 10*3/uL 1.8-7.7 [facility] Neutrophils/100 WBC Auto (Bl d)Ordered By: Charan Casey on 08-13-2022 Neutrophils/100 WBC (Bld) 56.8 % . [facility] Nitrite Test strip Ql (U)Ord ered By: Elpidio Whipple on 08-13-2022 Nitrite Ql (U) Negative Negative [facility] No Panel InformationOrdered By: Charan Casey on 08-13-2022 25-Hydroxy Vitamin D Total 37.8 ng/mL 30-100 [facility] Comment on above: VITAMIN D STATUS 25( [place])VITAMIN D RANGE (ng/mL) Deficient <20 Insufficient 20 to <30Sufficient 30 to 100Reference: Nayeli MF,Hannah NC, Jose GILBERT, et al. Evaluation,treatment, and prevention of vitamin D deficiency; an Endocrine Society clinical practice guideline. JCEM. 2010; 96(7):1911-30. Estimated GFR () 46 mL/Min [facility] Comment on above: GFR estimated refere nce range: According to KDOQI guidelines, <60 ml/min/1.73m2 is sufficient to diagnose a patient with chronic kidney disease. Pharmacy Creatinine Clearance (Chem N/A [facility] Platelet mean volume Auto (B ld) [Entitic vol]Ordered By: Charan Casey on 08-13-2022 Platelet mean volume (Bld) [Entitic vol] 9.2 fL 6.3-10.7 [facility] Platelets Auto (Bld) [#/Vol] Ordered By: Charan Casey on 08-13-2022 Platelets (Bld) [#/Vol] 272 10*3/uL 150-450 [facility] Protein Auto test strip (U) [Mass/Vol]Ordered By: Elpidio Whipple on 08-13-2022 Protein (U) [Mass/Vol] Negative Negative Fi [facility] Protein [Mass/volume] in Ser um or PlasmaOrdered By: Charan Casey on 08-13-2022 Protein [Mass/Vol] 7.0 g/dL 6.1-7.9 [facility] Protein [Mass/volume] in Uri neOrdered By: Elpidio Whipple on 08-13-2022 Protein (U) [Mass/Vol] 7 mg/dL 0-9 [facility] RBC Auto (Bld) [#/Vol]Ordere d By: Charan Casey on 08-13-2022 RBC (Bld) [#/Vol] 4.43 10*6/uL 3.60-5.00 [facility] Serum or plasma alanine stanton otransferase measurement without P-5'-P (enzymatic activiOrdered By: Charan Casey on 08-13-2022 ALT No additional P-5'-P [Catalytic activity/Vol] 12 U/L 1060 [facility] Serum or plasma albumin/glob ulin mass ratioOrdered By: Charan Casey on 08-13-2022 Albumin/Globulin [Mass ratio] 1.3 {ratio} [facility] Serum or plasma alkaline do sphatase measurement (enzymatic activity/volume)Ordered By: Charan Casey on 08-13-2022 ALP [Catalytic activity/Vol] 79 U/L 32-92 [facility] Serum or plasma anion gap de terminationOrdered By: Charan Casey on 08-13-2022 Anion gap [Moles/Vol] 15.4 mmol/L 6.0-15.0 [facility] Serum or plasma aspartate am inotransferase measurement (enzymatic activity/volume)Ordered By: Charan Casey on 08-13-2022 AST [Catalytic activity/Vol] 22 U/L 10-42 [facility] Serum or plasma calcium gautam urement (mass/volume)Ordered By: Charan Casey on 08-13-2022 Calcium [Mass/Vol] 10.1 mg/dL 8.2-10.2 [facility] Serum or plasma chloride malika surement (moles/volume)Ordered By: Charan Casey on 08-13-2022 Chloride [Moles/Vol] 102 mmol/L 95-114 [facility] Serum or plasma glucose gautam urement (mass/volume)Ordered By: Charan Casey on 08-13-2022 Glucose [Mass/Vol] 114 mg/dL 70-100 [facility] Comment on above: ADA recommended refe rence rangeRandom Glucose Reference Range is dependent on time and content of last meal. Glucose of more than 200 mg/dL in a nonstressed, ambulatory subject supports the diagnosis of Diabetes Mellitus. Serum or plasma high density lipoprotein (HDL) cholesterol measurementOrdered By: Charan Casey on 08-13-2022 Cholesterol in HDL [Mass/Vol] 28 mg/dL 35-85 [facility] Comment on above: HDL CHOL ATP-III CLA SSIFICATION Cardiovascular RiskHDL > or equal to 60 mg/dL LOWHDL < 40 mg/dL HIGH Serum or plasma intact parat hyroid hormone measurement (mass/volume)Ordered By: Elpidio Whipple on 08-13-2022 Parathyrin.intact [Mass/Vol] 87.0 pg/mL 12 [facility] Serum or plasma potassium me asurement (moles/volume)Ordered By: Charan Casey on 08-13-2022 Potassium [Moles/Vol] 4.9 mmol/L 3.5-5.1 [facility] Serum or plasma sodium measu rement (moles/volume)Ordered By: Charan Casey on 08-13-2022 Sodium [Moles/Vol] 138 mmol/L 136-146 [facility] Serum or plasma total biliru bin measurement (mass/volume)Ordered By: Charan Casey on 08-13-2022 Bilirubin [Mass/Vol] 0.4 mg/dL 0.3-1.2 [facility] Serum or plasma total carbon dioxide measurement (moles/volume)Ordered By: Charan Casey on 08-13-2022 CO2 [Moles/Vol] 25.5 mmol/L 22.0-30.0 [facility] Serum or plasma total choles terol/high density lipoprotein (HDL) cholesterol mass ratOrdered By: Charan Casey on 08-13-2022 Cholesterol.total/Mary sterol in HDL [Mass ratio] 6.1 {ratio} <5.0 [facility] Serum or plasma urea nitroge n measurement (mass/volume)Ordered By: Charan Casey on 08-13-2022 Urea nitrogen [Mass/Vol] 45 mg/dL 08-22 [facility] Serum or plasma uric acid me asurement (mass/volume)Ordered By: Charan Casey on 08-13-2022 Urate [Mass/Vol] 7.9 mg/dL 2.6-7.2 [facility] Specific gravity Auto test s trip (U) [Rel density]Ordered By: Elpidio Whipple on 08-13-2022 Specific gravity (U) [Rel density] 1.020 1.001-1.030 [facility] Squamous epithelial cells de tection in urine sediment by light microscopyOrdered By: Elpidio Whipple on 08-13-2022 Epithelial cells.squamous LM Ql (Urine sed) 0-1 [HPF] 0-2 [facility] TSH DL <= 0.005 mIU/L QnOrde red By: Charan Casey on 08-13-2022 TSH Qn 1.91 m[IU]/L 0.45-5.33 [facility] Triglyceride [Mass/volume] i n Serum or PlasmaOrdered By: Charan Casey on 08-13-2022 Triglyceride [Mass/Vol] 207 mg/dL 35-149 [facility] Comment on above: TRIG ATP III CLASSIF ICATIONTRIG less than 150 mg/dL NormalTRIG 150-199 mg/dL Borderline highTRIG 200-500 mg/dL High TRIG greater than 500 mg/dL Very highStandard traceable to the Center for Disease Conrtrol and Prevention (CDC) test method. Urine bacteria detection by automated methodOrdered By: Elpidio Whipple on 08-13-2022 Bacteria Auto Ql (U) None seen None Seen [facility] Urine clarity by refractomet ry automatedOrdered By: Elpidio Whipple on 08-13-2022 Clarity Refractometry automated (U) Clear Clear [facility] Urine glucose measurement by automated test strip (mass/volume)Ordered By: Elpidio Whipple on 08-13-2022 Glucose Auto test strip (U) [Mass/Vol] Normal mg/dL Normal [facility] Urine hemoglobin detection b y automated test stripOrdered By: Elpidio Whipple on 08-13-2022 Hemoglobin Auto test strip Ql (U) Negative Negative [facility] Urine leukocyte esterase det ection by automated test stripOrdered By: Elpidio Whipple on 08-13-2022 Leukocyte esterase Auto test strip Ql (U) Negative Negative [facility] Urine protein/creatinine rat ioOrdered By: Elpidio Whipple on 08-13-2022 Protein/Creatinine (U) [Ratio] 55 mg/g{Cre} 0-200 [facility] Urobilinogen Auto test strip (U) [Mass/Vol]Ordered By: Elpidio Whipple on 08-13-2022 Urobilinogen (U) [Mass/Vol] Normal mg/dL Normal [facility] pH Auto test strip (U)Ordere d By: Elpidio Whipple on 08-13-2022 pH (U) 5.0 [pH] 5.0-9.0 [facility] Tobacco Screening.on 022 Adult depression screening assessment No [facility] [employer] 250 DO Work Phone: Fall risk assessment a) No falls within the last year [facility] [employer] DO Work Phone: Tobacco use status [facility]PHS b) No M [facility] [employer] 250 DO Work Phone: Laboratory - Chemistry and C hemistry - challengeon 03-25-2022 Cholesterol [Mass/Vol] 218\S\218 above hig h threshold 140-200 [facility] [employer] 250 DO Work Phone: Comment on above: Chol less than 200 m g/dl low risk Chol 201-239 mg/dl borderline risk Chol 240 mg/dl and greater high risk Cholesterol in LDL [Mass/Vol] 145\S\145 above high threshold 0-100 [facility] 250 DO Work Phone: Comment on above: LDL ATP III CLASSIFI CATION LDL less than 100 mg/dL Optimal LDL 100-129 mg/dL Near or above optimal LDL 130-159 mg/dL Borderline high LDL 160-189 mg/dL High LDL greater than 189 mg/dL Very high Laboratory - Microbiology an d Antimicrobial susceptibilityon 03-25-2022 SARS-CoV-2 (COVID-19) RNA AHMET+probe Ql (Unsp spec) [facility] 250 DO Work Phone: No Panel Informationon 03-25 40.2\S\40.2 Normal . [facility] 250 DO Work Phone: 9.2\S\9.2 Normal 6.3-10.7 [facility] 250 DO Work Phone: 200\S\200 Normal 150-450 [facility] 250 DO Work Phone: 13.5\S\13.5 Normal 11.9-15.3 [facility] 250 DO Work Phone: 34.0\S\34.0 Normal 32.0-35.0 [facility] 250 DO Work Phone: 29.0\S\29.0 Normal 24.7-34.3 [facility] 250 DO Work Phone: 2.0\S\2.0 Normal 1.8-7.7 [facility] 250 DO Work Phone: 0.1\S\0.1 Normal 0.0-0.45 [facility] 250 DO Work Phone: 0.6\S\0.6 Normal . [facility] 250 DO Work Phone: 2.9\S\2.9 Normal . [facility] 250 DO Work Phone: 7.1\S\7.1 Normal . [facility] 250 DO Work Phone: 49.2\S\49.2 Normal . [facility] 250 DO Work Phone: 0.0\S\0.0 Normal 0.0-0.2 [facility] 250 DO Work Phone: Comment on above: PERFORMED BY:[facility] [place], [place] [id number] MEDICAL DIRECTORJE SHELLEY M.D. 0.4\S\0.4 Normal 0.0-0.8 [facility] 250 DO Work Phone: 2.5\S\2.5 Normal 1.00-4.8 [facility] 250 DO Work Phone: 85.5\S\85.5 Normal 80-100 [facility] 250 DO Work Phone: 39.0\S\39.0 Normal 34.0-46.4 [facility] 250 DO Work Phone: 13.3\S\13.3 Normal 11.8-15.4 [facility] 250 DO Work Phone: 4.56\S\4.56 Normal 3.60-5.00 [facility] 250 DO Work Phone: 5.1\S\5.1 Normal 3.8-11.6 [facility] 250 DO Work Phone: 33.3\S\33.3 Normal 25.1-36.5 [facility] 250 DO Work Phone: Comment on above: PERFORMED BY:[facility] [place], [place] [phone] MEDICAL DIRECTORJE SHELLEY M.D. 1.0\S\1.0 Normal [facility] DO Work Phone: Comment on above: INR [...] valves: 3 - 4.5 10.9\S\10.9 Normal 9.0-12.9 [place] [address] DO Work Phone: 26.6\S\26.6 Normal 22.0-30.0 [place] [address] DO Work Phone: 104\S\104 Normal 95-114 [place] [address] DO Work Phone: 4.0\S\4.0 Normal 3.5-5.1 [place] [address] DO Work Phone: 140\S\140 Normal 136-146 [facility] 250 DO Work Phone: 18\S\18 Normal 9-23 [facility] 250 DO Work Phone: 54\S\54 Normal [facility] 250 DO Work Phone: Comment on above: GFR estimated refere nce range: According to KDOQI guidelines, <60 ml/min/1.73m2 is sufficient to diagnose a patient with chronic kidney disease. 45\S\45 Normal [facility] 250 DO Work Phone: 1.22\S\1.22 above high threshold 0.44-1.03 [facility] 250 DO Work Phone: 6.4\S\6.4 Normal <5.0 [facility] 250 DO Work Phone: Comment on above: PERFORMED BY:[facility] [place], [place] [phone] MEDICAL DIRECTORJE SHELLEY M.D. 39\S\39 Normal [facility] 250 DO Work Phone: 197\S\197 above high threshold 35-149 [facility] 250 DO Work Phone: Comment on above: TRIG ATP III CLASSIF ICATION TRIG less than 150 mg/dL Normal TRIG 150-199 mg/dL Borderline high TRIG 200-500 mg/dL High TRIG greater than 500 mg/dL Very high Standard traceable to the Center for Disease Conrtrol and Prevention (CDC) test method. 34\S\34 below low threshold 35-85 [facility] 250 DO Work Phone: Comment on above: HDL CHOL ATP-III CLA SSIFICATION Cardiovascular Risk HDL > or equal to 60 mg/dL LOW HDL < 40 mg/dL HIGH Negative Normal Negative [place] [address] DO Work Phone: Comment on above: This is a duplicate Ashley SARS Antigen (PRISCILA) result to be used for statistical tracking purpose only.PERFORMED BY:[facility] [id number] MEDICAL DIRECTORJE SHELLEY M.D. CT Angio Coronary Arteries w ith Heart Flowon 03-11-2022 CT Angio Coronary Arteries with Heart Flow Normal [place] [address] DO Work Phone: CTA CORONARY ART WITH [...] R07.9: Chest pain. COMPARISON: None. ACCESSION NUMBER(S): [id number] ORDERING CLINICIAN: ROSALINDA TORRES TECHNIQUE: Using multi-detector [...] VALVE: The (more content not included)... Normal [facility] Tobacco Screening.on 022 Adult depression screening assessment No [facility] 250 DO Work Phone: Fall risk assessment a) No falls within the last year [facility] [email or web address] 250 DO Work Phone: Tobacco use status CPHS b) No M [facility] 250 DO Work Phone: SURGICAL PATHOLOGYon SURGICAL PATHOLOGY Specimen #: [id number] Physician: REUBEN CRAVEN M.D. FINAL DIAGNOSIS1. 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 Skin, left upper arm, shave biopsy ([id number]; 07/20/2018) - Intradermal nevus, neurotized (see comment).AF/CE/dss [...] for MART-1 and S100 [facility]. These stains highlight a [...] consultation. Please call theDermatopathology Consultation Service at [phone] with questions or ifadditional follow-up information becomes available regarding this patient.This case was reviewed in conjunction with the Dermatopathology Fellow, Dr.Carly Marija MD.Donald Zavaleta M.D. PhD(Electronic Signature) SPECIME N SUBMITTEDA: 11 SLIDES ([id number]) CLINICAL DATANone provided. of Report: 07/26/2018Date of Procedure: 07/23/2018Date of Receipt: 07/23/2018Submitted by: REUBEN CRAVEN M.D.Location: O66Adhigtrntr interpretation performed at [facility], [address] [place] [address]. Normal [facility] Reference Lab Comment on above: Performed By: #### S ####See report for performing lab information. Vital Signs Date Time Vital Sign Value Performing Clinician Facility 07-27-2025 08:13-0400 Body height 167.6 cm Shaina Petznick DO Work Phone: [facility] 07-27-2025 08:13-0400 Body temperature 97.5 [degF] Shaina Petznick DO Work Phone: [facility] 07-27-2025 08:13-0400 Diastolic blood pressure 62 mm[Hg] Shaina Petznick DO Work Phone: [facility] 07-27-2025 08:13-0400 Heart rate 65 /min Shaina Petznick DO Work Phone: [facility] 07-27-2025 08:13-0400 SaO2% (BldA) [Mass fraction] 98 % Shaina Petznick DO Work Phone: [facility] 07-27-2025 08:13-0400 Systolic blood pressure 122 mm[Hg] Shaina Petznick DO Work Phone: [facility] 07-12-2025 08:20-0400 Body temperature 97.8 [degF] Charan Casey DO Work Phone: [facility] 07-12-2025 08:20-0400 Diastolic blood pressure 60 mm[Hg] Charan Casey DO Work Phone: [facility] 07-12-2025 08:20-0400 Heart rate 70 /min Charan Masseys DO Work Phone: [facility] 07-12-2025 08:20-0400 Respiratory rate 16 /min Charan Masseys DO Work Phone: [facility] 07-12-2025 08:20-0400 SaO2% (BldA) [Mass fraction] 97 % Charan Casey DO Work Phone: [facility] 07-12-2025 08:20-0400 Systolic blood pressure 116 mm[Hg] Charan Masseys DO Work Phone: [facility] 05-15-2025 10:29-0400 Body height 167.6 cm Shaina Petznick DO Work Phone: [facility] 05-15-2025 10:29-0400 Body mass index (BMI) [Ratio] 35.86 kg/m2 Shaina Petznick DO Work Phone: [facility] 05-15-2025 10:29-0400 Body temperature 97.2 [degF] Shaina Petznick DO Work Phone: [facility] 05-15-2025 10:29-0400 Body weight 100.79 kg Shaina Petznick DO Work Phone: [facility] 05-15-2025 10:29-0400 Diastolic blood pressure 76 mm[Hg] Shaina Petznick DO Work Phone: [facility] 05-15-2025 10:29-0400 Heart rate 67 /min Shaina Petznick DO Work Phone: [facility] 05-15-2025 10:29-0400 SaO2% (BldA) [Mass fraction] 98 % Shaina Petznick DO Work Phone: [facility] 05-15-2025 10:29-0400 Systolic blood pressure 110 mm[Hg] Shaina Petznick DO Work Phone: [facility] 03-06-2025 08:09-0400 Body height 170.18 cm Charan Masseys DO Work Phone: [facility] 03-06-2025 08:09-0400 Body mass index (BMI) [Ratio] 35.4 kg/m2 Charan Masseys DO Work Phone: [facility] 03-06-2025 08:09-0400 Body weight 102.51 kg Charan Masseys DO Work Phone: [facility] 03-06-2025 08:09-0400 Respiratory rate 16 /min Charan Masseys DO Work Phone: [facility] 03-06-2025 08:09-0400 SaO2% (BldA) [Mass fraction] 98 % Charan Masseys DO Work Phone: [facility] 02-16-2025 09:35-0400 Body height 170.18 cm Charan Masseys DO Work Phone: [facility] 02-16-2025 09:35-0400 Body mass index (BMI) [Ratio] 36.5 kg/m2 Charan Masseys DO Work Phone: [facility] 02-16-2025 09:35-0400 Body weight 105.68 kg Charan Masseys DO Work Phone: [facility] 01-09-2025 10:01-0500 Body height 170.18 cm Charan Masseys DO Work Phone: [facility] 01-09-2025 10:01-0500 Body mass index (BMI) [Ratio] 36.5 kg/m2 Charan Masseys DO Work Phone: [facility] 01-09-2025 10:01-0500 Body weight 105.68 kg Charan Masseys DO Work Phone: [facility] 01-09-2025 10:01-0500 Diastolic blood pressure 84 mm[Hg] Charanheather Masseys DO Work Phone: [facility] 01-09-2025 10:01-0500 Heart rate 69 /min Charan Masseys DO Work Phone: [facility] 01-09-2025 10:01-0500 Respiratory rate 16 /min Charan Masseys DO Work Phone: [facility] 01-09-2025 10:01-0500 SaO2% (BldA) [Mass fraction] 98 % Charan Masseys DO Work Phone: [facility] 01-09-2025 10:01-0500 Systolic blood pressure 124 mm[Hg] Charan Masseys DO Work Phone: [facility] 12-09-2024 10:39-0500 Body height 170.18 cm Charan Masseys DO Work Phone: [facility] 12-09-2024 10:39-0500 Body mass index (BMI) [Ratio] 36.1 kg/m2 Charan Masseys DO Work Phone: [facility] 12-09-2024 10:39-0500 Body temperature 98.4 [degF] Charan Masseys DO Work Phone: [facility] 12-09-2024 10:39-0500 Body weight 104.77 kg Charan Masseys DO Work Phone: [facility] 12-09-2024 10:39-0500 Diastolic blood pressure 66 mm[Hg] Charan Masseys DO Work Phone: [facility] 12-09-2024 10:39-0500 Heart rate 78 /min Charan Brysons DO Work Phone: [facility] 12-09-2024 10:39-0500 Respiratory rate 16 /min Charan Masseys DO Work Phone: [facility] 12-09-2024 10:39-0500 SaO2% (BldA) [Mass fraction] 97 % Charan Brysons DO Work Phone: [facility] 12-09-2024 10:39-0500 Systolic blood pressure 130 mm[Hg] Charan Masseys DO Work Phone: [facility] 2024 09:30-0500 Diastolic blood pressure 83 mm[Hg] Charan Masseys DO Work Phone: [facility] 2024 09:30-0500 Heart rate 65 /min Charan Masseys DO Work Phone: [facility] 2024 09:30-0500 Respiratory rate 16 /min Charan Masseys DO Work Phone: [facility] 2024 09:30-0500 SaO2% (BldA) [Mass fraction] 99 % Charan Masseys DO Work Phone: [facility] 2024 09:30-0500 Systolic blood pressure 164 mm[Hg] Charan Masseys DO Work Phone: [facility] 2024 08:48-0500 Inhaled oxygen flow rate 3 L/min Charan Masseys DO Work Phone: [facility] 2024 07:38-0500 Body height 170.18 cm Charan Masseys DO Work Phone: [facility] 2024 07:38-0500 Body weight 108.86 kg Charan Masseys DO Work Phone: [facility] 10-19-2024 08:13-0500 Body weight 109.88 kg Charan Masseys DO Work Phone: [facility] 10-17-2024 13:12-0500 Body height 167.6 cm Shaina Petfelipeick DO Work Phone: [facility] 10-17-2024 13:12-0500 Body mass index (BMI) [Ratio] 39.06 kg/m2 Shaina Petznick DO Work Phone: [facility] 10-17-2024 13:12-0500 Body temperature 97.3 [degF] Shaina Petznick DO Work Phone: [facility] 10-17-2024 13:12-0500 Body weight 109.77 kg Shaina Petznick DO Work Phone: [facility] 10-17-2024 13:12-0500 Diastolic blood pressure 68 mm[Hg] Shaina Petznick DO Work Phone: [facility] 10-17-2024 13:12-0500 Heart rate 78 /min Shaina Petznick DO Work Phone: [facility] 10-17-2024 13:12-0500 SaO2% (BldA) [Mass fraction] 96 % Shaina Petznick DO Work Phone: [facility] 10-17-2024 13:12-0500 Systolic blood pressure 128 mm[Hg] Shaina Petznick DO Work Phone: [facility] 09-20-2024 10:28-0400 Diastolic blood pressure 76 mm[Hg] DO Charan Masseys Work Phone: [facility] 09-20-2024 10:28-0400 Heart rate 68 /min DO Charan Masseys Work Phone: [facility] 09-20-2024 10:28-0400 Respiratory rate 16 /min DO Charan Masseys Work Phone: [facility] 09-20-2024 10:28-0400 SaO2% (BldA) [Mass fraction] 95 % DO Charan Brysons Work Phone: [facility] 09-20-2024 10:28-0400 Systolic blood pressure 157 mm[Hg] DO Charan Kuns Work Phone: [facility] 09-20-2024 09:50-0400 Inhaled oxygen flow rate 3 L/min DO Charan Brysons Work Phone: [facility] 09-20-2024 08:38-0400 Body height 170.18 cm DO Charan Casey Work Phone: [facility] 09-20-2024 08:38-0400 Body weight 107.95 kg DO Charanheather Casey Work Phone: [facility] 08-25-2024 08:35-0400 Body height 170.2 cm Rosalinda Torres MD Work Phone: [facility] 08-25-2024 08:35-0400 Body mass index (BMI) [Ratio] 37.75 kg/m2 Rosalinda Torres MD Work Phone: [facility] 08-25-2024 08:35-0400 Body weight 109.32 kg Rosalinda Torres MD Work Phone: [facility] 08-25-2024 08:35-0400 Diastolic blood pressure 80 mm[Hg] Rosalinda Torres MD Work Phone: [facility] 08-25-2024 08:35-0400 Heart rate 80 /min Rosalinda Torres MD Work Phone: [facility] 08-25-2024 08:35-0400 Systolic blood pressure 130 mm[Hg] Rosalinda Torres MD Work Phone: [facility] 06-08-2024 15:44-0400 Body height 170.18 cm DO Charan Casey Work Phone: [facility] 06-08-2024 15:44-0400 Body mass index (BMI) [Ratio] 37 kg/m2 DO Charan Casey Work Phone: [facility] 06-08-2024 15:44-0400 Body weight 107.5 kg DO Charan Casey Work Phone: [facility] 06-08-2024 15:44-0400 Diastolic blood pressure 76 mm[Hg] DO Charan Casey Work Phone: [facility] 06-08-2024 15:44-0400 Heart rate 95 /min DO Charan Brysons Work Phone: [facility] 06-08-2024 15:44-0400 SaO2% (BldA) [Mass fraction] 96 % DO Charan Brysons Work Phone: [facility] 06-08-2024 15:44-0400 Systolic blood pressure 151 mm[Hg] DO Charan Kuns Work Phone: [facility] 05-31-2024 11:30-0400 Diastolic blood pressure 78 mm[Hg] DO Charan Kuns Work Phone: [facility] 05-31-2024 11:30-0400 Heart rate 68 /min DO Charan Brysons Work Phone: [facility] 05-31-2024 11:30-0400 Respiratory rate 16 /min DO Charan Masseys Work Phone: [facility] 05-31-2024 11:30-0400 SaO2% (BldA) [Mass fraction] 98 % DO Charanheather Masseys Work Phone: [facility] 05-31-2024 11:30-0400 Systolic blood pressure 152 mm[Hg] DO Charanheather Masseys Work Phone: [facility] 05-31-2024 10:53-0400 Inhaled oxygen flow rate 3 L/min DO Charanheather Masseys Work Phone: [facility] 05-31-2024 10:09-0400 Body height 170.18 cm DO Charan Brysons Work Phone: [facility] 05-31-2024 10:09-0400 Body weight 108.86 kg DO Charan Kuns Work Phone: [facility] 03-01-2024 09:31-0400 Body height 170.18 cm DO Charan Kuns Work Phone: [facility] 03-01-2024 09:31-0400 Body mass index (BMI) [Ratio] 37.4 kg/m2 DO Charan Casey Work Phone: [facility] 03-01-2024 09:31-0400 Body temperature 96.8 [degF] DO Charanheather Casey Work Phone: [facility] 03-01-2024 09:31-0400 Body weight 108.4 kg DO Charanheather Casey Work Phone: [facility] 03-01-2024 09:31-0400 Diastolic blood pressure 83 mm[Hg] DO Charan Casey Work Phone: [facility] 03-01-2024 09:31-0400 Heart rate 88 /min DO Charan Casey Work Phone: [facility] 03-01-2024 09:31-0400 Respiratory rate 16 /min DO Charan Casey Work Phone: [facility] 03-01-2024 09:31-0400 SaO2% (BldA) [Mass fraction] 98 % DO Charan Casey Work Phone: [facility] 03-01-2024 09:31-0400 Systolic blood pressure 146 mm[Hg] DO Charan Casey Work Phone: [facility] 02-22-2024 14:26-0400 Body height 170.2 cm Rosalinda Torres MD Work Phone: [facility] 02-22-2024 14:26-0400 Body mass index (BMI) [Ratio] 37.12 kg/m2 Rosalinda Torres MD Work Phone: [facility] 02-22-2024 14:26-0400 Body weight 107.5 kg Rosalinda Torres MD Work Phone: [facility] 02-22-2024 14:26-0400 Diastolic blood pressure 60 mm[Hg] Rosalinda Torres MD Work Phone: [facility] 02-22-2024 14:26-0400 Heart rate 84 /min Rosalinda Torres MD Work Phone: [facility] 02-22-2024 14:26-0400 Systolic blood pressure 130 mm[Hg] Rosalinda Torres MD Work Phone: [facility] 12-30-2023 13:00-0500 Body height 170.18 cm Charan Casey Other [facility] 12-30-2023 13:00-0500 Body mass index (BMI) [Ratio] 37.59 kg/m2 Charan Casey Other [employer] Other 12-30-2023 13:00-0500 Body temperature 98.3 [degF] Charan Casey Other [employer] Other 12-30-2023 13:00-0500 Body weight 108.86 kg Charan Casey Other [facility] 12-30-2023 13:00-0500 Diastolic blood pressure 80 mm[Hg] Charan Casey Other [facility] 12-30-2023 13:00-0500 Respiratory rate 18 /min Charan Casey Other [employer] Other 12-30-2023 13:00-0500 SaO2% (BldA) [Mass fraction] 96 % Charan Casey Other [employer] Other 12-30-2023 13:00-0500 Systolic blood pressure 150 mm[Hg] Charan Casey Other [facility] 10-21-2023 12:45-0500 Body height 170.18 cm Blas Bellamy Other [employer] Other 10-21-2023 12:45-0500 Body mass index (BMI) [Ratio] 37.43 kg/m2 Blas Bellamy Other [employer] Other 10-21-2023 12:45-0500 Body temperature 97.6 [degF] Blas Bellamy Other [employer] Other 10-21-2023 12:45-0500 Body weight 108.41 kg Blas Bellamy Other [employer] Other 10-21-2023 12:45-0500 Diastolic blood pressure 90 mm[Hg] Blas Bellamy Other [employer] Other 10-21-2023 12:45-0500 Respiratory rate 18 /min Blas Bellamy Other [employer] Other 10-21-2023 12:45-0500 SaO2% (BldA) [Mass fraction] 96 % Blas Bellamy Other [employer] Other 10-21-2023 12:45-0500 Systolic blood pressure 143 mm[Hg] Blas Bellamy Other [employer] Other 10-06-2023 09:04-0500 Diastolic blood pressure 74 mm[Hg] DO Charan Masseys Work Phone: [facility] 10-06-2023 09:04-0500 Heart rate 76 /min DO Charan Brysons Work Phone: [facility] 10-06-2023 09:04-0500 Respiratory rate 16 /min DO Charan Kuns Work Phone: [facility] 10-06-2023 09:04-0500 SaO2% (BldA) [Mass fraction] 96 % DO Charan Brysons Work Phone: [facility] 10-06-2023 09:04-0500 Systolic blood pressure 159 mm[Hg] DO Charan Casey Work Phone: [facility] 10-06-2023 07:01-0500 Body height 170.18 cm DO Charan Casey Work Phone: [facility] 10-06-2023 07:01-0500 Body weight 106.59 kg DO Charan Casey Work Phone: [facility] 09-15-2023 10:20-0400 Body height 170.18 cm Elpidio Sole Other [employer] Other 09-15-2023 10:20-0400 Body mass index (BMI) [Ratio] 37.46 kg/m2 Elpidio Sole Other [employer] Other 09-15-2023 10:20-0400 Body temperature 97.2 [degF] Elpidio Sole Other [facility] [facility] Other 09-15-2023 10:20-0400 Body weight 108.5 kg Elpidio Sole Other [employer] Other 09-15-2023 10:20-0400 Diastolic blood pressure 80 mm[Hg] Elpidio Sole Other [facility] [facility] Other 09-15-2023 10:20-0400 Respiratory rate 18 /min Elpidio Sole Other [facility] [facility] Other 09-15-2023 10:20-0400 SaO2% (BldA) [Mass fraction] 99 % Elpidio Sole Other [facility] [facility] Other 09-15-2023 10:20-0400 Systolic blood pressure 140 mm[Hg] Elpidiorohan Zarater Other [facility] [employer] Other 09-08-2023 09:00-0400 Diastolic blood pressure 88 mm[Hg] DO Charan Casey Work Phone: [facility] 09-08-2023 09:00-0400 Heart rate 69 /min DO Charan [employer] Work Phone: [facility] 09-08-2023 09:00-0400 Respiratory rate 16 /min DO Charan Casey Work Phone: [facility] 09-08-2023 09:00-0400 SaO2% (BldA) [Mass fraction] 96 % DO Charan Caesy Work Phone: [facility] 09-08-2023 09:00-0400 Systolic blood pressure 146 mm[Hg] DO Charan Casey Work Phone: [facility] 09-08-2023 08:17-0400 Inhaled oxygen flow rate 3 L/min DO Charan Casey Work Phone: [facility] 09-08-2023 07:21-0400 Body height 170.18 cm DO Charan Casey Work Phone: [facility] 09-08-2023 07:21-0400 Body weight 108.86 kg DO Charan Casey Work Phone: [facility] 08-17-2023 09:30-0400 Body height 170.18 cm Blas Ortiz Other [employer] Other 08-17-2023 09:30-0400 Body mass index (BMI) [Ratio] 38.06 kg/m2 Blas Ortiz Other [employer] Other 08-17-2023 09:30-0400 Body weight 110.22 kg Blas Ortiz Other [employer] [facility] Other 08-11-2023 09:20-0400 Body height 170.18 cm Thierno Shena Other [employer] Other 08-11-2023 09:20-0400 Body mass index (BMI) [Ratio] 38.06 kg/m2 Thierno Chatterjee Other [employer] Other 08-11-2023 09:20-0400 Body weight 110.22 kg Thierno Chatterjee Other [facility] [facility] Other 08-11-2023 09:20-0400 Diastolic blood pressure 90 mm[Hg] Thierno Chatterjee Other [employer] [facility] Other 08-11-2023 09:20-0400 Systolic blood pressure 152 mm[Hg] Thierno Chatterjee Other [facility] [facility] Other 08-05-2023 08:15-0400 Body height 170.18 cm Charan Casey Other [facility] [facility] Other 08-05-2023 08:15-0400 Body mass index (BMI) [Ratio] 38.21 kg/m2 Charan Casey Other [facility] Other 08-05-2023 08:15-0400 Body weight 110.68 kg Charan Casey Other [facility] Other 08-05-2023 08:15-0400 Diastolic blood pressure 60 mm[Hg] Charan Casey Other [facility] Other 08-05-2023 08:15-0400 Respiratory rate 18 /min Charan Casey Other [facility] Other 08-05-2023 08:15-0400 SaO2% (BldA) [Mass fraction] 95 % Charan Casey Other [facility] Other 08-05-2023 08:15-0400 Systolic blood pressure 126 mm[Hg] Charan Casey Other [facility] Other 05-19-2023 12:30-0400 Body height 170.18 cm Charan Casey Other [facility] Other 05-19-2023 12:30-0400 Diastolic blood pressure 74 mm[Hg] Charan Casey Other [facility] Other 05-19-2023 12:30-0400 Respiratory rate 18 /min Charan Casey Other [facility] Other 05-19-2023 12:30-0400 SaO2% (BldA) [Mass fraction] 97 % Charan Casey Other [facility] Other 05-19-2023 12:30-0400 Systolic blood pressure 140 mm[Hg] Charan Casey Other [facility] Other 04-30-2023 10:17-0400 Body height 170.18 cm Charan Casey Work Phone: [employer] [facility] [employer] 250 DO Work Phone: 04-30-2023 10:17-0400 Body mass index (BMI) [Ratio] Medical Reason Not Done Charan Casey Work Phone: [facility] 250 DO Work Phone: 04-30-2023 10:17-0400 Diastolic blood pressure 64 mm[Hg] Charan Casey Work Phone: [facility] [employer] 250 DO Work Phone: 04-30-2023 10:17-0400 Heart rate 72 /min Charan Casey Work Phone: [facility] [email or web address] 250 DO Work Phone: 04-30-2023 10:17-0400 Systolic blood pressure 128 mm[Hg] Charan Casey Work Phone: [facility] [employer] 250 DO Work Phone: 03-31-2023 15:30-0400 Body height 170.18 cm Charan Casey Other [facility] Other 03-31-2023 15:30-0400 Diastolic blood pressure 64 mm[Hg] Charan Casey Other [facility] Other 03-31-2023 15:30-0400 Respiratory rate 18 /min Charan Casey Other [facility] Other 03-31-2023 15:30-0400 SaO2% (BldA) [Mass fraction] 98 % Charan Casey Other [facility] Other 03-31-2023 15:30-0400 Systolic blood pressure 126 mm[Hg] Charan Casey Other [facility] Other 03-10-2023 15:40-0400 Body height 170.18 cm Elpidio Sole Other [facility] Other 03-10-2023 15:40-0400 Diastolic blood pressure 86 mm[Hg] Elpidio Sole Other [facility] Other 03-10-2023 15:40-0400 Respiratory rate 16 /min Elpidio Sole Other [facility] Other 03-10-2023 15:40-0400 SaO2% (BldA) [Mass fraction] 99 % Elpidio Sole Other [facility] Other 03-10-2023 15:40-0400 Systolic blood pressure 135 mm[Hg] Elpidio Sole Other [facility] Other 03-04-2023 15:00-0400 Body height 170.18 cm Williamer Coco Other [facility] Other 03-04-2023 15:00-0400 Body mass index (BMI) [Ratio] 37.43 kg/m2 Williamer Coco Other [facility] Other 03-04-2023 15:00-0400 Body weight 108.41 kg Christbryoner Coco Other [facility] Other 03-04-2023 15:00-0400 Diastolic blood pressure 83 mm[Hg] Williamer Coco Other [facility] Other 03-04-2023 15:00-0400 SaO2% (BldA) [Mass fraction] 98 % Christbryoner Coco Other [facility] Other 03-04-2023 15:00-0400 Systolic blood pressure 157 mm[Hg] Kumaropher Coco Other [facility] Other 09-24-2022 16:00-0400 Body height 170.18 cm Elpidio Sole Other [facility] Other 09-24-2022 16:00-0400 Body mass index (BMI) [Ratio] 37.37 kg/m2 Elpidio Sole Other [facility] Other 09-24-2022 16:00-0400 Body temperature 96.4 [degF] Elpidio Sole Other [facility] Other 09-24-2022 16:00-0400 Body weight 108.23 kg Elpidio Sole Other [facility] Other 09-24-2022 16:00-0400 Diastolic blood pressure 64 mm[Hg] Elpidio Sole Other [facility] Other 09-24-2022 16:00-0400 Respiratory rate 16 /min Elpidio Sole Other [facility] Other 09-24-2022 16:00-0400 SaO2% (BldA) [Mass fraction] 98 % Elpidio Sole Other [facility] Other 09-24-2022 16:00-0400 Systolic blood pressure 120 mm[Hg] Elpidio Sole Other [facility] Other 09-02-2022 14:00-0400 Body height 170.18 cm Charan Casey Other [facility] Other 09-02-2022 14:00-0400 Body mass index (BMI) [Ratio] 37.9 kg/m2 Charan Casey Other [facility] Other 09-02-2022 14:00-0400 Body weight 109.77 kg Charan Casey Other [facility] Other 09-02-2022 14:00-0400 Diastolic blood pressure 70 mm[Hg] Charan Casey Other [facility] Other 09-02-2022 14:00-0400 Respiratory rate 16 /min Charan Casey Other [facility] Other 09-02-2022 14:00-0400 SaO2% (BldA) [Mass fraction] 97 % Charan Casey Other [facility] Other 09-02-2022 14:00-0400 Systolic blood pressure 112 mm[Hg] Charan Casey Other [employer] Other 07-27-2022 19:56-0400 Body height 170.18 cm DO Charan Masseys Work Phone: [facility] 07-27-2022 19:56-0400 Body temperature 99.1 [degF] DO Charan Masseys Work Phone: [facility] 07-27-2022 19:56-0400 Body weight 110.55 kg DO Charan Kuns Work Phone: [facility] 07-27-2022 19:56-0400 Diastolic blood pressure 81 mm[Hg] DO Charan Kuns Work Phone: [facility] 07-27-2022 19:56-0400 Heart rate 89 /min DO Charan Kuns Work Phone: [facility] 07-27-2022 19:56-0400 Respiratory rate 20 /min DO Charan Brysons Work Phone: [facility] 07-27-2022 19:56-0400 SaO2% (BldA) [Mass fraction] 98 % DO Charan Casey Work Phone: [facility] 07-27-2022 19:56-0400 Systolic blood pressure 142 mm[Hg] DO Charanheather Casey Work Phone: [facility] 05-08-2022 08:51-0400 Body height 170.18 cm Charan Louise Jacinto Work Phone: [facility] DO Work Phone: 05-08-2022 08:51-0400 Body mass index (BMI) [Ratio] 38.06 kg/m2 Charan Dani Casey Work Phone: [facility] DO Work Phone: 05-08-2022 08:51-0400 Body surface area Derived from formula 2.2 m2 Charan Dani Casey Work Phone: [facility] DO Work Phone: 05-08-2022 08:51-0400 Body weight 110.22 kg Charan Dani Casey Work Phone: [facility] DO Work Phone: 05-08-2022 08:51-0400 Diastolic blood pressure 70 mm[Hg] Charan Louise Jacinto Work Phone: [facility] DO Work Phone: 05-08-2022 08:51-0400 Heart rate 72 /min Charan Masseybryn Work Phone: [facility] DO Work Phone: 05-08-2022 08:51-0400 Systolic blood pressure 136 mm[Hg] Charan Casey Work Phone: [facility] DO Work Phone: 04-30-2022 17:00-0400 Body height 170.18 cm Federico Sepulveda Other [facility] Other 04-30-2022 17:00-0400 Body mass index (BMI) [Ratio] 38.52 kg/m2 Federico Hanno Other [facility] Other 04-30-2022 17:00-0400 Body temperature 97.1 [degF] Kumarbryonerika Coco Other [facility] Other 04-30-2022 17:00-0400 Body weight 111.59 kg Williamerika BucknerCoco Other [facility] Other 04-30-2022 17:00-0400 Diastolic blood pressure 86 mm[Hg] Federico Hanno Other [facility] Other 04-30-2022 17:00-0400 SaO2% (BldA) [Mass fraction] 97 % Federico Hanno Other [facility] Other 04-30-2022 17:00-0400 Systolic blood pressure 148 mm[Hg] Federico Bucknerdano Other [facility] Other 04-14-2022 11:30-0400 Body height 170.18 cm Charan Casey Other [facility] Other 04-14-2022 11:30-0400 Body mass index (BMI) [Ratio] 38.52 kg/m2 Charan Casey Other [facility] Other 04-14-2022 11:30-0400 Body weight 111.59 kg Charan Casey Other [facility] Other 04-14-2022 11:30-0400 Diastolic blood pressure 70 mm[Hg] Charan Casey Other [facility] Other 04-14-2022 11:30-0400 Respiratory rate 16 /min Charan Casey Other [facility] Other 04-14-2022 11:30-0400 SaO2% (BldA) [Mass fraction] 99 % Charan Casey Other [facility] Other 04-14-2022 11:30-0400 Systolic blood pressure 126 mm[Hg] Charan Casey Other [facility] Other 02-20-2022 17:00-0400 Body mass index (BMI) [Ratio] 38.56 kg/m2 Elpidio Sole Other [facility] Other 02-20-2022 17:00-0400 Body temperature 97.2 [degF] Elpidio Sole Other [facility] Other 02-20-2022 17:00-0400 Body weight 111.68 kg Elpidio Sole Other [facility] Other 02-20-2022 17:00-0400 Diastolic blood pressure 79 mm[Hg] Elpidio Sole Other [facility] Other 02-20-2022 17:00-0400 Respiratory rate 18 /min Elpidio Sole Other [facility] Other 02-20-2022 17:00-0400 SaO2% (BldA) [Mass fraction] 98 % Elpidio Sole Other [facility] [employer] Other 02-20-2022 17:00-0400 Systolic blood pressure 134 mm[Hg] Elpidio Sole Other [facility] [employer] Other 02-20-2022 12:28-0400 Body height 170.18 cm Charan Casey Work Phone: [facility] DO Work Phone: 02-20-2022 12:28-0400 Body mass index (BMI) [Ratio] 38.37 kg/m2 Charan Casey Work Phone: [facility] 250 DO Work Phone: 02-20-2022 12:28-0400 Body surface area Derived from formula 2.2 m2 Charan Casey Work Phone: [facility] DO Work Phone: 02-20-2022 12:28-0400 Body weight 111.13 kg Charan Casey Work Phone: [facility] DO Work Phone: 02-20-2022 12:28-0400 Diastolic blood pressure 71 mm[Hg] Charan Casey Work Phone: [facility] DO Work Phone: 02-20-2022 12:28-0400 Heart rate 72 /min Charan Casey Work Phone: [facility] DO Work Phone: 02-20-2022 12:28-0400 Systolic blood pressure 131 mm[Hg] Charan Casey Work Phone: [facility] DO Work Phone: 02-07-2022 09:45-0500 Body height 170.18 cm Charan Casey Other [facility] [employer] Other 02-07-2022 09:45-0500 Body mass index (BMI) [Ratio] 38.27 kg/m2 Charan Casey Other [facility] [employer] Other 02-07-2022 09:45-0500 Body weight 110.86 kg Charan Casey Other [facility] [employer] Other 02-07-2022 09:45-0500 Diastolic blood pressure 82 mm[Hg] Charan Casey Other [facility] [employer] Other 02-07-2022 09:45-0500 Respiratory rate 18 /min Chaarn Casey Other [facility] [employer] Other 02-07-2022 09:45-0500 SaO2% (BldA) [Mass fraction] 95 % Charan Casey Other [facility] [employer] Other 02-07-2022 09:45-0500 Systolic blood pressure 148 mm[Hg] Charan Casey Other [facility] [employer] Other 12-31-2021 17:20-0500 Body height 170.18 cm Thierno Chatterjee Other [facility] [employer] Other 12-31-2021 17:20-0500 Body mass index (BMI) [Ratio] 38.84 kg/m2 Thierno Chatterjee Other [place] [employer] Other 12-31-2021 17:20-0500 Body weight 112.49 kg Thierno Chatterjee Other [facility] Other 12-03-2021 15:00-0500 Body height 170.18 cm Charan Casey Other [facility] Other 10-01-2021 17:15-0400 Body height 170.18 cm Blas Maurererika Other [facility] [employer] Other Encounters Encounter Date Encounter Type Care Provider Facility Start: 07-27-2025 End: 07-27-2025 Bamboo flowsheet Shaina Munroe DO Work Phone: [facility] 230 Start: 07-27-2025 End: 07-27-2025 BamOnito flowsheet Shaina Munroe DO Work Phone: [facility] 230 Start: 07-27-2025 End: 07-27-2025 Office outpatient visit 25 minutes Shaina Munroe DO Work Phone: [facility] 230 Comment on above: Type 2 [...] 07-12-2025 ambulatory Charan Casey DO Work Phone: [facility] Work Phone: Start: 07-12-2025 End: 07-12-2025 Patient encounter procedure Charan Louise DO -[facility] Work Phone: Start: 06-30-2025 Non-patient / Non-visit Karla Lyons MD -[facility] Work Phone: Start: 06-29-2025 Non-patient / Non-visit Karla Lyons MD -[facility] Work Phone: Start: 06-28-2025 Non-patient / Non-visit Gustavo Mason BASSETT -[facility] Work Phone: Start: 06-21-2025 End: 06-21-2025 ambulatory Charan Casey DO Work Phone: [facility] Work Phone: Start: 06-21-2025 End: 06-21-2025 Patient encounter procedure Blas Louise MD -[facility] Work Phone: Start: 06-14-2025 Non-patient / Non-visit Blas Louise MD -[facility] Work Phone: Start: 06-14-2025 End: 06-14-2025 ambulatory Charan Casey DO Work Phone: [facility] Work Phone: Start: 06-14-2025 End: 06-14-2025 Patient encounter procedure Blas Louise MD [facility] Work Phone: Start: 06-05-2025 End: 06-05-2025 Patient encounter procedure Acosta Castro DPM [place] -X-Ray [facility] Start: 06-05-2025 End: 06-05-2025 ambulatory Charan Jacinto DO Work Phone: [facility] Work Phone: Start: 05-31-2025 End: 05-31-2025 ambulatory Charan Masseys DO Work Phone: [facility] Work Phone: Start: 05-31-2025 End: 05-31-2025 Patient encounter procedure Blas Louise MD -[facility] Work Phone: Start: 05-15-2025 End: 05-15-2025 Office outpatient visit 25 minutes Shaina M Ludwig DO Work Phone: [facility] 230 Comment on above: Type 2 [...] (BMI) of 35.0 to 35.9 in adult ([facility]) Start: 05-15-2025 End: 05-15-2025 ambulatory SHAINA NELSONALFREDO Not Available Start: 03-06-2025 End: 03-06-2025 ambulatory Charan Casey DO Work Phone: [facility] Work Phone: Start: 03-06-2025 End: 03-06-2025 Patient encounter procedure Charan Casey DO Work Phone: [facility] Work Phone: Start: 02-16-2025 End: 02-16-2025 ambulatory Charan Casey DO Work Phone: [facility] Work Phone: Start: 02-16-2025 End: 02-16-2025 Patient encounter procedure Charan Casey DO Work Phone: [facility] Work Phone: Start: 02-14-2025 End: 02-14-2025 ambulatory SHAINA M LUDWIG Not Available Start: 02-01-2025 Non-patient / Non-visit Charan Casey DO Work Phone: [facility] Physician [facility] Work Phone: Start: 02-01-2025 End: 02-01-2025 ambulatory Charan Kuns DO Work Phone: [facility] Work Phone: Start: 02-01-2025 End: 02-01-2025 Patient encounter procedure Charan Casey DO Work Phone: [facility] Work Phone: Start: 01-31-2025 End: 01-31-2025 ambulatory Charan Casey DO Work Phone: [facility] Work Phone: Start: 01-31-2025 End: 01-31-2025 Discharged Recurring Charan Casey DO Work Phone: [facility]-Physical Therapy [place] Start: 01-31-2025 Registered Recurring Charan clemente DO Work Phone: [facility]-Physical Therapy [place] Start: 01-26-2025 End: 01-26-2025 ambulatory Charan Casey DO Work Phone: [facility] Work Phone: Start: 01-26-2025 End: 01-26-2025 Patient encounter procedure Charan Casey DO Work Phone: [facility] Work Phone: Start: 01-26-2025 Registered Recurring Charan clemente DO Work Phone: [facility]-Physical Therapy [place] Start: 01-23-2025 End: 01-23-2025 Patient encounter procedure Charan Casey DO Work Phone: [facility]-MRI [address] [facility] Work Phone: Start: 01-23-2025 End: 01-23-2025 ambulatory Charanheather Casey DO Work Phone: [facility] Work Phone: Start: 01-18-2025 End: 01-18-2025 ambulatory Charan Casey DO Work Phone: [facility] Work Phone: Start: 01-18-2025 End: 01-18-2025 Patient encounter procedure Charan Casey DO Work Phone: [facility] Physician [facility] Work Phone: Start: 01-13-2025 Registered Recurring Charan Massey s DO Work Phone: [facility]-Physical Therapy [place] Start: 01-09-2025 End: 01-09-2025 Telephone encounter Shaina Munroe DO [facility]: [facility] Start: 01-09-2025 Non-patient / Non-visit Charan Casey DO Work Phone: [facility] Work Phone: Start: 01-09-2025 End: 01-09-2025 ambulatory Charan Casey DO Work Phone: [facility] Work Phone: Start: 01-09-2025 End: 01-09-2025 Patient encounter procedure Charan Casey DO Work Phone: [facility] Physician [facility] Work Phone: Start: 01-03-2025 Registered Recurring Charan clemente DO Work Phone: [facility]-Physical Therapy [place] Start: 12-29-2024 End: 12-29-2024 ambulatory Charan Casey DO Work Phone: [facility] Work Phone: Start: 12-29-2024 End: 12-29-2024 Patient encounter procedure Charan Casey DO Work Phone: [facility] Work Phone: Start: 12-26-2024 End: 12-26-2024 ambulatory Charan Casey DO Work Phone: [facility] Work Phone: Start: 12-26-2024 End: 12-26-2024 Patient encounter procedure Charan Casey DO Work Phone: [facility] Work Phone: Start: 12-26-2024 Registered Recurring Charan clemente DO Work Phone: [facility]-Physical Therapy [place] Start: 12-09-2024 End: 12-09-2024 ambulatory Charan Casey DO Work Phone: [facility] Work Phone: Start: 12-09-2024 End: 12-09-2024 Patient encounter procedure Charan Casey DO Work Phone: [facility] Phys[facility] Work Phone: Start: 12-08-2024 End: 12-08-2024 Patient encounter procedure Charan Casey DO Work Phone: [facility]-X-Ray [facility] Start: 12-08-2024 End: 12-08-2024 ambulatory Charan Casey DO Work Phone: [facility] Work Phone: Start: 11-15-2024 Registered Recurring Charan clemente DO Work Phone: [facility]-Physical Therapy [place] Start: 2024 Non-patient / Non-visit Charanheather Casey DO Work Phone: [facility] Physician [facility] Pain [facility] Work Phone: Start: 2024 End: 2024 Admission to same day surgery center Charan Casey DO Work Phone: [facility]-Digestive Health Work Phone: Start: 2024 End: 2024 ambulatory Blas Ortiz Facility:[facility] Start: 10-25-2024 End: 10-25-2024 Patient encounter procedure Charan Casey DO Work Phone: [facility] Work Phone: Start: 10-25-2024 End: 10-25-2024 ambulatory Nader Davis Antoinette Facility:[facility] Start: 10-19-2024 End: 10-19-2024 ambulatory Charan Casey DO Work Phone: [facility] Work Phone: Start: 10-19-2024 End: 10-19-2024 Patient encounter procedure Charan Casey DO Work Phone: [facility] Work Phone: Start: 10-17-2024 End: 10-17-2024 Office outpatient visit 25 minutes Shaina Munroe DO Work Phone: [facility] 230 Comment on above: Type 2 [...] / Non-visit DO Yeison Casey Work Phone: [facility] Work Phone: Start: 09-20-2024 End: 09-20-2024 Admission to same day surgery center DO Charan Casey Work Phone: [facility] Work Phone: Start: 09-20-2024 End: 09-20-2024 ambulatory DO Charan Casey Work Phone: [facility] Work Phone: Start: 09-12-2024 Non-patient / Non-visit DO Yeison Casey Work Phone: [facility] [place] Work Phone: Start: 09-12-2024 End: 09-12-2024 ambulatory DO Charan Casey Work Phone: [facility] Work Phone: Start: 09-12-2024 End: 09-12-2024 Patient encounter procedure DO Charan Casey Work Phone: [facility] [place] Work Phone: Start: 09-07-2024 End: 09-07-2024 Patient encounter procedure DO Charan Casey Work Phone: [facility] Work Phone: Start: 09-07-2024 End: 09-07-2024 ambulatory DO Charan Casey Work Phone: [facility] Work Phone: Start: 09-02-2024 End: 09-02-2024 ambulatory Charan Casey Facility:[facility] Start: 09-02-2024 Registered Recurring DO Charan Casey Work Phone: [facility]-Physical Therapy [place] Start: 08-25-2024 End: 08-25-2024 Office outpatient visit 25 minutes Rosalinda Torres MD Work Phone: [facility] Comment on above: Coronary artery dise ase, unspecified vessel or lesion type, unspecified whether angina present, unspecified whether [place] or transplanted heart; Elevated coronary artery calcium [...] 06-13-2024 ambulatory DO Charan Casey Work Phone: [facility] Work Phone: Start: 06-13-2024 End: 06-13-2024 Patient encounter procedure DO Charan Casey Work Phone: [facility] [place] Work Phone: Start: 06-08-2024 End: 06-08-2024 ambulatory DO Charan Casey Work Phone: [facility] Work Phone: Start: 06-08-2024 End: 06-08-2024 Patient encounter procedure DO Charan Casey Work Phone: [facility] Work Phone: Start: 05-31-2024 Non-patient / Non-visit DO Yeison heather Casey Work Phone: [facility] [place] Work Phone: Start: 05-31-2024 End: 05-31-2024 Admission to same day surgery center DO Charan Casey Work Phone: [facility] Work Phone: Start: 05-31-2024 End: 05-31-2024 ambulatory DO Charan Casey Work Phone: [facility] Work Phone: Start: 05-23-2024 End: 05-23-2024 ambulatory DO Charan Casey Work Phone: [facility] Work Phone: Start: 05-23-2024 End: 05-23-2024 Patient encounter procedure DO Charan Casey Work Phone: [facility] Phys[facility] [place] Work Phone: Start: 05-13-2024 Non-patient / Non-visit DO Yeison Casey Work Phone: [facility] [place] Work Phone: Start: 04-19-2024 Non-patient / Non-visit DO Yeison Casey Work Phone: [facility] [place] Work Phone: Start: 03-18-2024 Non-patient / Non-visit DO Yeison Casey Work Phone: [facility] Physician [facility] Work Phone: Start: 03-17-2024 End: 03-17-2024 ambulatory DO Charanheather Casey Work Phone: [facility] Work Phone: Start: 03-17-2024 End: 03-17-2024 Patient encounter procedure DO Charan Casey Work Phone: [facility] Work Phone: Start: 03-05-2024 End: 03-05-2024 ambulatory DO Charanheather Casey Work Phone: [facility] Work Phone: Start: 03-05-2024 End: 03-05-2024 Patient encounter procedure DO Charan Casey Work Phone: [facility]-MRI [address] [place] Work Phone: Start: 03-01-2024 End: 03-01-2024 ambulatory DO Charanheather Masseys Work Phone: [facility] Work Phone: Start: 03-01-2024 End: 03-01-2024 Patient encounter procedure DO Charanheather Masseys Work Phone: [facility] Work Phone: Start: 02-29-2024 End: 02-29-2024 ambulatory DO Charan Casey Work Phone: [facility] Work Phone: Start: 02-29-2024 End: 02-29-2024 Patient encounter procedure DO Charan Casey Work Phone: [facility] Start: 02-23-2024 Non-patient / Non-visit DO Yeison heather Jacinto Work Phone: [facility] Work Phone: Start: 02-22-2024 End: 02-22-2024 ambulatory ROSALINDA Morales [facility] Ambulatory Start: 02-22-2024 End: 02-22-2024 Office outpatient visit 25 minutes Rosalinda Torres MD Work Phone: [facility] Comment on above: Coronary artery dise ase, unspecified vessel or lesion type, unspecified whether angina present, unspecified whether [place] or transplanted heart (Primary Dx); Essential hypertension; 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; Hyperlipidemia, unspecified hyperlipidemia type; Obstructive sleep apnea syndrome; Class 2 obesity with body mass index (BMI) of 37.0 to 37.9 in adult, unspecified obesity type, unspecified whether serious comorbidity present; Insulin-requiring or dependent type II diabetes mellitus ([facility]) Start: 02-17-2024 Non-patient / Non-visit DO Yeison Casey Work Phone: [facility] Physician [facility] Work Phone: Start: 02-12-2024 Non-patient / Non-visit DO Yeison heather Jacinto Work Phone: [facility] Phys[facility] Work Phone: Start: 02-04-2024 End: 02-04-2024 Patient encounter procedure DO Charan Casey Work Phone: [facility] Work Phone: Start: 01-11-2024 End: 01-11-2024 ambulatory Charan Masseybryn Other [facility] Other Start: 01-11-2024 Telephone encounter Charan Masseys [facility] [place] Start: 12-31-2023 End: 12-31-2023 ambulatory Charan Masseys Other [facility] Other Start: 12-31-2023 Telephone encounter Charan Casey [facility] [place] Start: 12-30-2023 End: 12-30-2023 Patient encounter procedure DO Charan Masseybryn Work Phone: [facility] Start: 12-30-2023 End: 12-30-2023 ambulatory DO Charan Brysonbryn Work Phone: [facility] Work Phone: Start: 12-30-2023 Office outpatient vi sit 15 minutes [facility] Start: 12-30-2023 End: 12-30-2023 Patient encounter procedure DO Charanheather Casey Work Phone: [facility]- Start: 11-26-2023 End: 11-26-2023 ambulatory DO Charanheather Casey Work Phone: [facility] Work Phone: Start: 11-26-2023 End: 11-26-2023 Patient encounter procedure DO Charan Casey Work Phone: [facility] Start: 11-06-2023 End: 11-06-2023 ambulatory Charan Masseys Other [facility] [employer] Other Start: 11-06-2023 Telephone encounter Charan Casey [facility] Clinical Radiologist Start: 11-05-2023 Diabetic care education Renée Watts [facility] Start: 11-05-2023 Encounter by computer link Renée Watts [facility] Start: 11-05-2023 End: 11-05-2023 ambulatory DO Charan Casey Work Phone: [facility] Other Start: 11-05-2023 End: 11-05-2023 Discharged Recurring DO Charan Casey Work Phone: [facility] Work Phone: Start: 11-05-2023 Registered Recurring DO Charan Casey Work Phone: [facility]abetes [facility] Work Phone: Start: 11-03-2023 End: 11-03-2023 ambulatory Charan Casey Other [facility] Other Start: 11-03-2023 Telephone encounter Charan Casey [facility] [place] Start: 10-28-2023 End: 10-28-2023 ambulatory Blas Ortiz Other [facility] Other Start: 10-28-2023 Office outpatient vi sit 15 minutes Blas Ortiz [facility] [place] Start: 10-28-2023 Telephone encounter Blas Ortiz [facility] [place] Start: 10-28-2023 End: 10-28-2023 Patient encounter procedure DO Charan Jacinto Work Phone: [facility] Work Phone: Start: 10-21-2023 End: 10-21-2023 ambulatory Blas [place] Other [facility] Other Start: 10-21-2023 Office outpatient vi sit 15 minutes Blas Bellamy [facility] [address] Start: 10-21-2023 End: 10-21-2023 Patient encounter procedure DO Charan Casey Work Phone: [facility] [place] Work Phone: Start: 10-19-2023 End: 10-19-2023 ambulatory Blas Erastoerika Other [facility] Other Start: 10-19-2023 Telephone encounter Blas Ortiz [facility] [place] Start: 10-07-2023 End: 10-07-2023 ambulatory Charan Casey Other [facility] Other Start: 10-07-2023 Telephone encounter Charan Casey [facility] [place] Start: 10-06-2023 End: 10-06-2023 Admission to same day surgery center DO Charan Casey Work Phone: [facility] Work Phone: Start: 10-06-2023 End: 10-06-2023 ambulatory DO Charan Casey Work Phone: [facility] Work Phone: Start: 09-23-2023 End: 09-23-2023 ambulatory Blas Ortiz Other [facility] Other Start: 09-23-2023 Office outpatient vi sit 15 minutes Blas Ortiz [facility] [place] Start: 09-15-2023 End: 09-15-2023 ambulatory Elpidio Sole Other [facility] Other Start: 09-15-2023 Office outpatient vi sit 25 minutes Elpidio Sole [facility] Start: 09-14-2023 End: 09-14-2023 ambulatory DO Charan Casey Work Phone: [facility] Work Phone: Start: 09-14-2023 End: 09-14-2023 Patient encounter procedure DO Charan Casey Work Phone: [facility] Start: 09-08-2023 (Procedure) Short Blas Ortiz [facility] Start: 09-08-2023 End: 09-08-2023 Admission to same day surgery center DO Charan Casey Work Phone: [facility] Work Phone: Start: 09-08-2023 End: 09-08-2023 ambulatory DO Charan Casey Work Phone: [facility] Work Phone: Start: 08-25-2023 End: 08-25-2023 ambulatory Imad Asaad Other [facility] Other Start: 08-25-2023 Telephone encounter Yasmeen Treadwell [facility] Clinical Radiologist Start: 08-18-2023 End: 08-18-2023 ambulatory Charan Casey Other [employer] [place] [employer] Other Start: 08-18-2023 Telephone encounter Charan Casey [facility] [place] Start: 08-17-2023 End: 08-17-2023 ambulatory Blas Ortiz Other [facility] Other Start: 08-17-2023 Office outpatient vi sit 25 minutes Blas Ortiz [facility] [place] Start: 08-17-2023 End: 08-17-2023 Patient encounter procedure DO Charan Casey Work Phone: [facility] [place] [facility] Start: 08-11-2023 Office outpatient vi sit 15 minutes Thierno Chatterjee [facility] Neurosurgery Start: 08-11-2023 End: 08-11-2023 ambulatory DO Charan Casey Work Phone: [facility] Work Phone: Start: 08-11-2023 End: 08-11-2023 Patient encounter procedure DO Charan Casey Work Phone: [facility] Start: 08-05-2023 End: 08-05-2023 ambulatory Charan Casey Other [facility] Other Start: 08-05-2023 Office outpatient vi sit 25 minutes Charan Casey [facility] Start: 07-02-2023 End: 07-02-2023 ambulatory Charan Casey Other [facility] Other Start: 07-02-2023 Telephone encounter Charan Casey [facility] Start: 06-08-2023 End: 06-08-2023 ambulatory DO Charan Casey Work Phone: [facility] Work Phone: Start: 06-08-2023 End: 06-08-2023 Discharged Recurring DO Charan Casey Work Phone: [facility]-Physical Therapy [facility] Start: 05-28-2023 End: 05-28-2023 ambulatory Renée Watts Other [facility] Other Start: 05-28-2023 Diabetic care education Renée Watts [facility] Start: 05-28-2023 Registered Recurring DO Charan Casey Work Phone: [facility] Work Phone: Start: 05-19-2023 Office outpatient vi sit 25 minutes Charan Casey [facility] Start: 05-19-2023 End: 05-19-2023 ambulatory DO Charan Casey Work Phone: [facility] Work Phone: Start: 05-19-2023 End: 05-19-2023 Patient encounter procedure DO Charan Casey Work Phone: [facility] Start: 05-05-2023 End: 05-05-2023 ambulatory Charan Casey Other [facility] Other Start: 05-05-2023 Telephone encounter Charan Casey [facility] [place] Start: 04-30-2023 Office outpatient vi sit 25 minutes Charan Casey Work Phone: [facility] [address] DO Work Phone: Start: 04-30-[address] Charan Casey Facility: Start: 04-13-2023 End: 04-13-2023 ambulatory ACOSTA CASTRO Facility:H1 Start: 04-07-2023 End: 04-08-2023 ambulatory BLANKA OLGUIN Facility:H1 Start: 04-06-2023 Encounter for preprocedural laboratory examination ACOSTA CASTRO [facility] Start: 04-06-2023 End: 04-06-2023 ambulatory Charan Casey Other [facility] Other Start: 04-06-2023 Telephone encounter Charan Casey [facility] [place] Start: 03-31-2023 Office outpatient vi sit 25 minutes Charan Casey [facility] [place] Start: 03-31-2023 End: 04-01-2023 ambulatory ACOSTA [facility] [employer] Other Start: 03-31-2023 End: 04-01-2023 Encounter for preprocedural laboratory examination ACOSTA HERNANDEZMISAEL Facility:H1 Start: 03-26-2023 End: 03-26-2023 ambulatory Charan Casey Other [facility] Other Start: 03-26-2023 Telephone encounter Charan Casey [facility] [place] Start: 03-23-2023 End: 03-24-2023 ambulatory BLANKA OLGUIN Facility:H1 Start: 03-10-2023 End: 03-10-2023 ambulatory Elpidio Sole Other [facility] Other Start: 03-10-2023 Office outpatient vi sit 25 minutes Elpidio Sole [facility] Start: 03-06-2023 End: 03-06-2023 ambulatory DO Charan Casey Work Phone: [facility] Work Phone: Start: 03-06-2023 End: 03-06-2023 Patient encounter procedure DO Charan Casey Work Phone: [facility] Start: 03-04-2023 Office outpatient vi sit 15 minutes Federico Sepulveda [facility] Start: 03-04-2023 Telephone encounter Charan Casey [facility] Start: 03-04-2023 End: 03-04-2023 ambulatory DO Charan Brysonbryn Work Phone: [facility] Other Start: 03-04-2023 End: 03-04-2023 Patient encounter procedure DO Charan Casey Work Phone: [facility] Work Phone: Start: 03-03-2023 End: 03-04-2023 ambulatory BLANKA OLGUIN Facility:H1 Start: 02-17-2023 End: 02-18-2023 ambulatory BRODERICK FLOR Facility:H1 Start: 02-16-2023 End: 02-16-2023 ambulatory Charan Casey Other [facility] Other Start: 02-16-2023 Telephone encounter Charan Casey [facility] [place] Start: 02-05-2023 End: 02-05-2023 ambulatory Charan Jacinto Other [facility] Other Start: 02-05-2023 Telephone encounter Charan Jacinto [facility] Family [facility] [place] Start: 02-03-2023 End: 02-04-2023 ambulatory BRODERICK FLOR Facility:H1 Start: 01-27-2023 End: 01-27-2023 Patient encounter procedure DO Charan Casey Work Phone: [facility] Work Phone: Start: 01-27-2023 End: 01-27-2023 ambulatory DO Charan Casey Work Phone: [facility] Work Phone: Start: 01-27-2023 Immune Injection one Vaccine (Admin Chg) Renée Watts [facility] Start: 01-20-2023 End: 01-21-2023 ambulatory BLANKA OLGUIN Facility:H1 Start: 01-19-2023 End: 01-19-2023 ambulatory Charan Casey Other [facility] [employer] Other Start: 01-19-2023 Telephone encounter Charan Casey [facility] Start: 12-29-2022 End: 12-31-2022 ambulatory BLANKA OLGUIN Facility:H1 Start: 12-25-2022 Encounter for preprocedural cardiovascular examination [facility] Start: 12-25-2022 Encounter for preprocedural laboratory examination [facility] Start: 12-23-2022 End: 12-24-2022 ambulatory [facility] Facility:H1 Start: 12-23-2022 End: 12-24-2022 Encounter for preprocedural cardiovascular examination [facility] Facility:H1 Start: 11-26-2022 End: 11-27-2022 ambulatory BRODERICK FLOR Facility:H1 Start: 11-12-2022 End: 11-13-2022 ambulatory BLANKA OLGUIN Facility:H1 Start: 11-12-[address] Charan Casey Facility: Start: 10-28-2022 ([facility] INJ) [facility] Injection Eliud Napoleon manuela [facility] Start: 10-28-2022 End: 10-28-2022 ambulatory DO Charan Casey Work Phone: [facility] Work Phone: Start: 10-28-2022 End: 10-28-2022 Patient encounter procedure DO Charan Casey Work Phone: [facility] Start: 10-16-2022 ([facility] C Vac) [facility] Co vid Vaccine Renée Watts [facility] Start: 10-16-2022 ([facility] INJ) [facility] Injection Renée Mac [facility] Start: 10-16-2022 Telephone encounter Elpidio Sole [facility] Nephrology Start: 10-16-2022 End: 10-16-2022 ambulatory DO Charan Casey Work Phone: [facility] Other Start: 10-16-2022 End: 10-16-2022 Patient encounter procedure DO Charan Casey Work Phone: [facility] Start: 10-15-2022 End: 10-15-2022 ambulatory DO Charan Casey Work Phone: [facility] Work Phone: Start: 10-15-2022 End: 10-15-2022 Patient encounter procedure DO Charan Casey Work Phone: [facility] [address] Start: 10-13-2022 End: 10-13-2022 ambulatory DO Charan Casey Work Phone: [facility] Work Phone: Start: 10-13-2022 End: 10-13-2022 Patient encounter procedure DO Charanheather Masseybryn Work Phone: [facility] [address] Start: 09-24-2022 End: 09-24-2022 ambulatory Elpidio Sole Other [facility] Other Start: 09-24-2022 Office outpatient vi sit 25 minutes Elpidio Sole [facility] Ne[facility] [place] Start: 09-02-2022 End: 09-02-2022 ambulatory Charan Casey Other [facility] Other Start: 09-02-2022 Office outpatient vi sit 25 minutes Charan Casey [facility] [place] Start: 08-13-2022 End: 08-13-2022 Patient encounter procedure DO Charan Casey Work Phone: [facility] Start: 08-07-2022 End: 08-07-2022 ambulatory Charan Casey Other [place] [employer] Other Start: 08-07-2022 Telephone encounter [facility] Start: 07-27-2022 End: 07-27-2022 Emergency department patient visit DO Charan Casey Work Phone: [facility]-Emergency Room Start: 07-16-2022 End: 07-16-2022 ambulatory Charan Casey Other [facility] [employer] Other Start: 07-16-2022 Telephone encounter Charan Casey [facility] Start: 07-02-2022 End: 07-02-2022 ambulatory Charan Casey Other [facility] [employer] Other Start: 07-02-2022 Telephone encounter Charan Casey [facility] Start: 05-08-2022 Office outpatient vi sit 25 minutes Charan Casey Work Phone: [place] [address] DO Work Phone: Start: 04-30-2022 End: 04-30-2022 ambulatory Federico Sepulveda Other [facility] [employer] Other Start: 04-30-2022 Office outpatient vi sit 10 minutes Federico Sepulveda [facility] Start: 04-14-2022 End: 04-14-2022 ambulatory Charan Casey Other [place] [employer] Other Start: 04-14-2022 Office outpatient vi sit 25 minutes Charan Casey [facility] [place] Start: 04-07-2022 End: 04-07-2022 ambulatory Charanheather Casey Other [place] [employer] Other Start: 04-07-2022 Telephone encounter Charan Casey [facility] [place] Start: 04-02-2022 End: 04-02-2022 ambulatory Charanheather Casey Other [place] [employer] Other Start: 04-02-2022 Telephone encounter Charan Casey [facility] [place] Start: 03-31-2022 End: 03-31-2022 ambulatory Charanheather Casey Other [place] [employer] Other Start: 03-31-2022 Telephone encounter Charan Casey [facility] [place] Start: 03-27-2022 [facility], Provider: Rosalinda Torres, Status: Pen, Time: 1:00 PM Charan Casey Work Phone: [facility] [address] DO Work Phone: Start: 03-26-2022 Chart Update Charanheather Casey Work Phone: [facility] [address] DO Work Phone: Start: 03-13-2022 End: 03-13-2022 ambulatory Charanheather Casey Other [facility] [employer] Other Start: 03-13-2022 Telephone encounter Charanheather Casey [facility] Start: 03-12-2022 Chart Update Charan Louise Jacinto Work Phone: [facility] [address] DO Work Phone: Start: 03-07-2022 End: 03-07-2022 ambulatory Renée Watts Other [place] [employer] Other Start: 03-07-2022 Telephone encounter Renée Watts [facility] Start: 03-04-2022 End: 03-04-2022 ambulatory Charan Casey Other [facility] Other Start: 03-04-2022 Telephone encounter Charan Casey [facility] Start: 02-20-2022 End: 02-20-2022 ambulatory Elpidio Sole Other [facility] Other Start: 02-20-2022 Office outpatient vi sit 25 minutes Elpidio Sole [facility] Start: 02-10-2022 End: 02-10-2022 ambulatory Charan Casey Other [facility] Other Start: 02-10-2022 Telephone encounter Charan Casey [facility] [place] Start: 02-07-2022 End: 02-07-2022 ambulatory Charan Casey Other [facility] Other Start: 02-07-2022 Office outpatient vi sit 25 minutes Charan Casey [facility] [place] Start: 02-05-2022 End: 02-05-2022 ambulatory Charan Casey Other [facility] Other Start: 02-05-2022 Telephone encounter Charan Casey [facility] [place] Start: 01-21-2022 End: 01-21-2022 ambulatory Charan Casey Other [facility] Other Start: 01-21-2022 Telephone encounter Charan Casey [facility] [place] Start: 12-31-2021 End: 12-31-2021 ambulatory Thierno Chatterjee Other [facility] Other Start: 12-31-2021 Office outpatient vi sit 15 minutes Thierno Chatterjee [facility] Neuro[facility] Start: 12-07-2021 End: 12-07-2021 ambulatory Charan Casey Other [facility] Other Start: 12-07-2021 Telephone encounter Charan Jacinto [facility] Start: 12-06-2021 End: 12-06-2021 ambulatory Charan Masseybryn Other [facility] Other Start: 12-06-2021 Telephone encounter Charan Casey [facility] Start: 12-03-2021 End: 12-03-2021 ambulatory Charan Casey Other [place] [employer] Other Start: 12-03-2021 Office outpatient vi sit 15 minutes Charan Casey [facility] Start: 10-01-2021 End: 10-01-2021 ambulatory Blas Ortiz Other [facility] Other Start: 10-01-2021 Office outpatient vi sit 25 minutes Blas Ortiz [facility] Pain [facility] [place] End: 02-20-2022 Patient encounter status Charan Dani Jacinto Work Phone: [facility] Work Phone: Procedures Date [...] Charan Casey Work Phone: Start: 10-06-2023 Colonoscopy Rosalnida Torres MD Work Phone: Start: 09-08-2023 Injection of local anesthetic into sacroiliac joint DO Charan Casey Work Phone: Start: 08-17-2023 Plain X-ray of right hip DO Charan Casey Work Phone: Start: 08-11-2023 X-ray of lumbar spine, six views including bending views DO Cahran Casey Work Phone: Start: 06-20-2023 Plain chest X-ray DO Charan Casey Work Phone: Start: 05-19-2023 Radiography of thoracic spine DO Charan galvna Work Phone: Start: 05-19-2023 X-ray of lumbar [...] Screening for malign ant neoplasm of colon [facility] Start: 2025 Pneumococcal Vaccine : Pediatrics (0 to 5 Years) and At-Risk Patients (6 to 64 Years) (3 - PPSV23 or PCV20) Pneumococcal Vaccine: Pediatrics (0 to 5 Years) and At-Risk Patients (6 to 64 Years) (3 - PPSV23 or PCV20) [facility] Start: 2025 Pneumococcal Vaccine : Pediatrics (0 to 5 Years) and At-Risk Patients (6 to 64 Years) (3 of 3 - PPSV23 or PCV20) Pneumococcal Vaccine: Pediatrics (0 to 5 Years) and At-Risk Patients (6 to 64 Years) (3 of 3 - PPSV23 or PCV20) [facility] Start: 10-24-2025 End: 10-24-2025 Patient encounter procedure 10/24/2025 10:30 AM EST Office Visit [facility] [address] [place] [address] Shaina Munroe DO [address] [place] [address] [facility] 230 Start: 09-05-2025 Glaucoma screening Diabetes: R etinopathy Screening [facility] Start: 08-15-2025 End: 08-15-2025 Patient encounter procedure [facility] 230 Start: 07-31-2025 Influenza vaccination [facility] Start: 07-27-2025 End: 07-27-2025 Patient encounter procedure 07/27/2025 8:15 AM EDT Office Visit [facility] [place] [facility] [address] [place] [address] Shaina Munroe, DO [address] [place] [address] Arrived [facility] 230 Comment on above: Arrived Start: 03-28-2025 End: 03-28-2025 Patient encounter procedure 03/28/2025 8:50 AM EDT Office Visit [facility] [address] [place] [address] Rosalinda Torres MD [address] [place] [address] [facility] Start: 02-14-2025 End: 02-14-2025 Patient encounter procedure 02/14/2025 9:30 AM EDT Office Visit [facility] [address] [place] [address] Shaina Munroe, DO [address] [place] [address] [facility] Start: 01-23-2025 MR Shoulder - right WO contrast [facility] Start: 01-23-2025 MRI of right shoulder MR shoulder RT wo con [facility] Start: 01-17-2025 Hemoglobin A1c measurement Diabetes: Hemoglobin A1C [facility] Start: 2024 [facility] Start: 09-20-2024 [facility] Start: 08-25-2024 End: 08-25-2024 Patient encounter procedure 08/25/2024 8:40 AM EDT Office Visit [facility] [address] [place] [address] Rosalinda Torres MD [address] [place] [address] [facility] Start: 07-31-2024 COVID-19 Vaccine ( season) COVID-19 Vaccine ( season) [facility] Start: 07-31-2024 Influenza vaccination Influenza Vacc ine (#1) [facility] Start: 05-31-2024 [facility] Start: 02-29-2024 Bacteria identified in Urine by Culture [facility] Start: 02-29-2024 Urine culture Urine Culture [facility] Start: 11-10-2023 [facility], Provider: Rosalinda Torres, Status: Pen, Time: 9:10 AM [facility], Provider: Rosalinda Torres, Status: Pen, Time: 9:10 AM [facility] 250 DO Work Phone: Start: 10-06-2023 [facility] Start: 09-08-2023 [facility] Start: 07-31-2023 COVID-19 Vaccine ( season) COVID-19 Vaccine ( season) [facility] Start: 07-31-2023 Influenza vaccination Influenza Vacc ine (#1) [facility] Start: 03-06-2023 Bacteria identified in Urine by Culture [facility] Start: 11-12-2022 [facility], Provider: Rosalinda Torres, Status: Pen, Time: 9:00 AM [facility], Provider: Rosalinda Torres, Status: Pen, Time: 9:00 AM [facility] 250 DO Work Phone: Start: 09-08-2022 DTaP/Tdap/Td Vaccine s (2 - Td or Tdap) DTaP/Tdap/Td Vaccines (2 - Td or Tdap) [facility] Start: 03-27-2022 [facility], Provider: Rosalinda Torres, Status: Pen, Time: 1:00 PM [facility], Provider: Rosalinda Torres, Status: Pen, Time: 1:00 PM [facility] [address] DO Work Phone: Start: 03-14-2022 [facility], Provider: Rosalinda Torres, Status: Pen, Time: 1:50 PM [facility], Provider: Rosalinda Torres, Status: Pen, Time: 1:50 PM [facility] [facility] DO Work Phone: Start: 2020 RSV patient s and/or patients aged 60+ years (1 - 1-dose 60+ series) RSV patients and/or patients aged 60+ years (1 - 1-dose 60+ series) [facility] Start: 2000 Screening for malign ant neoplasm of breast Mammogram [facility] Start: 1990 Screening for malign ant neoplasm of cervix [facility] Start: 1982 DTaP/Tdap/Td Vaccine s (1 - Tdap) DTaP/Tdap/Td Vaccines (1 - Tdap) [facility] Start: 1981 Screening for malign ant neoplasm of cervix [facility] Start: 1979 Urine screening for protein Diabetes: Urine Protein Screening [facility] Start: 1978 Hepatitis C screening Hepatitis C Sc reening [facility] Start: 1970 Diabetic foot examination Diabetes: Foot Exam [facility] Start: 1970 Glaucoma screening Diabetes: R etinopathy Screening [facility] Start: 1961 MMR Vaccines (1 of 1 - Standard series) MMR Vaccines (1 of 1 - Standard series) [facility] Start: 1960 Hemoglobin A1c measurement Diabetes: Hemoglobin A1C [facility] Start: 1960 HIV screening HIV Screening [facility] Start: 1960 Lipid panel Lipid Panel [facility] Start: 1960 Medicare Annual Well ness (AWV) Medicare Annual Wellness (AWV) [facility] Start: 1960 Medicare Annual Well ness Visit Medicare Annual Wellness Visit (AWV) [facility] Start: 1960 Screening for malign ant neoplasm of colon [facility] Start: 1960 Yearly Adult Physical Yearly Adult P hysical [facility] Comprehensive metabo lic 2000 panel - Serum or Plasma [facility] MR Lumbar spine WO a nd W contrast IV [facility] MR Shoulder - right WO contrast [facility] Patient Education [facility] Work Phone: Patient referral [facility] Work Phone: Renal function 1999 panel - Serum or Plasma [facility] Rheumatoid factor [Units/volume] in Serum or Plasma [facility] Immunizations Immunization Date Immunization Notes Care Provider Fa cility 01-27-2023 zoster vaccine recombinant Renée Fitt Other [facility] 10-28-2022 zoster vaccine recombinant Eliud LePoire Other [facility] 10-16-2022 influenza virus vaccine, unspecified formulation DO Charan Casey Work Phone: [facility] 10-16-2022 influenza, seasonal, injectable Rosalinda Torres MD Work Phone: [facility] Work Phone: 10-16-2022 Moderna SARS-CoV-2 Vaccination Rosalinda Torres MD Work Phone: [facility] Work Phone: 10-16-2022 COVID-19 Moderna (BIvalent) Renée Fitt Other [facility] 10-16-2022 influenza, high dose seasonal, preservative-free Renée Fitt Other [facility] [employer] [facility] [employer] Other 10-16-2022 influenza, injectabl e, quadrivalent, preservative free Renée Fitt Other [facility] [employer] [employer] Other 09-26-2021 Moderna COVID-19 Vaccine 100 MCG/0.5ML Intramuscular Suspension Charan Casey Work Phone: [facility] 09-25-2021 Moderna SARS-CoV-2 Booster Vaccination Shaina Munroe DO Work Phone: [facility] 08-30-2021 seasonal influenza, intradermal, preservative free Charan Louise Brysonbryn Work Phone: [facility] DO Work Phone: 12-25-2020 COVID-19 Vaccine Moderna - Documentation Purposes Only Blas Ortiz Other [facility] 11-28-2020 Moderna COVID-19 Vaccine 100 MCG/0.5ML Intramuscular Suspension Charan Casey Work Phone: [facility] 08-30-2019 influenza virus vaccine, unspecified formulation Charan Dani Brysonbryn Work Phone: [facility] [employer] DO Work Phone: 08-30-2019 influenza, injectabl e, quadrivalent, preservative free Shaina Munroe DO Work Phone: [facility] 08-30-2019 influenza, seasonal, injectable Blas Erastoerika Other [facility] 08-30-2018 influenza, seasonal, injectable Blas Erastoerika Other [facility] 08-30-2018 influenza, seasonal, injectable, preservative free Shaina Munroe DO Work Phone: [facility] 12-02-2016 influenza virus vaccine, unspecified formulation DO Charan Masseybryn Work Phone: [facility] 12-02-2016 influenza, seasonal, injectable, preservative free Charanheather Casey Work Phone: [facility] 250 DO Work Phone: 12-02-2016 pneumococcal conjuga te vaccine, 13 valent Blas Otriz Other [facility] 12-02-2016 influenza, high dose seasonal, preservative-free Blas Ortiz Other [facility] [employer] Other 12-02-2016 influenza, injectabl e, quadrivalent, preservative free Renée Watts Other [facility] Other 11-30-2016 pneumococcal polysaccharide vaccine, 23 valent Charan Casey Work Phone: [facility] DO Work Phone: 10-15-2016 pneumococcal polysaccharide vaccine, 23 valent Charan Casey Work Phone: [facility] 09-08-2012 influenza virus vaccine, unspecified formulation DO Charan Casey Work Phone: [facility] 09-08-2012 tetanus toxoid, reduced diphtheria toxoid, and acellular pertussis vaccine, adsorbed Blas Ortiz Other [facility] 09-08-2012 influenza virus vaccine, split virus (incl. purified surface antigen) Blas Ortiz Other [facility] Other influenza virus vaccine, unspecified formulation [facility] Work Phone: Comment on above: 2009 NEGATED: Highlighted row has not occurred!09-07-2017 influenza, injectable,quadrivalen t, preservative free, pediatric Blas Ortiz Other [facility] Other Payers Date Payer Category Payer Unknown [id number] 2024 Medicare [facility] MEDICARE [facility] MEDICARE [id number] 2024-Present [id number] [place] [address] [id number]. [id number] 2024 Medicare (Managed Care) 1.2. [id number]. [id number] 2024 Medicare [id number] 2022 Unknown 1960 Unknown [id number] 2.16.840.1.277970.3.579.2. 593 1960 Unknown [id number] 2.16.840.1.105238.3.579.2. 593 1960 Unknown [id number] 2.16.840.1.530364.3.579.2. 593 1960 Unknown [id number] 2.16.840.1.987515.3.579.2. 593 1960 Unknown [id number] 2.16.840.1.501063.3.579.2. 593 1960 Unknown [id number] 2.16.840.1.341177.3.579.2. 593 1960 Unknown [id number] 2.16.840.1.346642.3.579.2. 593 1960 Unknown [id number] 2.16.840.1.493492.3.579.2. 593 1960 Unknown [id number] 2.16.840.1.287154.3.579.2. 593 1960 Unknown [id number] 2.16.840.1.173615.3.579.2. 593 1960 Unknown [id number] 2.16.840.1.862146.3.579.2. 593 1960 Unknown [id number] 2.16.840.1.798292.3.579.2. 593 1960 Unknown [id number] 2.16.840.1.491151.3.579.2. 356 1960 Unknown [id number] 2.16.840.1.628279.3.579.2. 356 1960 Unknown [id number] 2.16.840.1.703092.3.579.2. 1244 1960 Unknown [id number] 2.16.840.1.959196.3.579.2. 1259 1960 Unknown [id number] 2.16.840.1.430305.3.579.2. 1259 1960 Unknown [id number] 2.16.840.1.127352.3.579.2. 1259 1960 Unknown [id number] 2.16.840.1.077853.3.579.2. 1259 1959 Unknown [id number] 2.16.840.1.719485.19 Medicare Medicare [id number] Self-pay Self Pay [id number] Social History Date Type Detail Facility Start: 12-04-2023 End: 07-26-2025 Occasional caffeine consumption Occasional caffeine consumption [facility] Comment on above: Coffee; Start: 12-04-2023 End: 07-26-2025 Sex Assigned At [facility] Start: 07-27-2022 End: 05-19-2023 Tobacco smoking status NHIS Never smoked tobacco (finding) [facility] Start: 1960 Sex Assigned At Female F [facility] Start: 05-19-2023 End: 12-04-2023 Tobacco use and exposure Smokeless tobacco non-user [facility] Work Phone: Start: 12-04-2023 End: 07-27-2025 Alcohol intake Lifetime non-drinker (finding) [facility] Work Phone: Start: 1960 Sex Assigned At Not on file U [facility] Work Phone: Start: 02-12-2024 End: 08-25-2024 Exposure to SARS-CoV-2 (event) Not sure [facility] Start: 10-19-2024 End: 04-11-2025 Sex Female (finding) [facility] Do you belong to any clubs or organizations such as bahai groups, unions, fraternal or athletic groups, or [...] lumbar, XLIF Orthopaedic bone screw, non-bioabsorbable, non-sterile [id number] FDA Start: 07-25-2020 Fusion, spine, lumbar, XLIF Bone-screw internal spinal fixation system, non-sterile +[id number] FDA Start: 07-25-2020 Fusion, spine, lumbar, XLIF STRATOFUSE DBM [id number] FDA Start: 07-25-2020 Fusion, spine, lumbar, XLIF TIMBERLINE INTERBODY FDA Start: 07-25-2020 Fusion, spine, lumbar, XLIF Spinal fusion graft kit [id number] FDA Start: 07-25-2020 Fusion, spine, lumbar, XLIF Bone-screw internal spinal fixation system, non-sterile [id number] FDA Start: 07-25-2020 Fusion, spine, lumbar, XLIF [...] lumbar, XLIF TIMBERLINE INTERBODY FDA Start: 07-25-2020 [id number] Start: 08-11-2013 End: 07-26-2026 Drug-eluting coronary artery stent, gbw-hmpdnjmqggtjk-cc lymer-coated ([id number] FDA Start: 03-27-2022 Femoral artery closure plug/patch, synthetic polymer [id number] FDA Start: 03-27-2022 Pen Needle, Diab etic [...] [facility] ionnaire 2 item (PHQ-2) [Reported] [facility] Clinical Notes 12-31-2014 to 07-27-2025 Shaina [...] (BMI) of 35.0 to 35.9 in adult ([facility]) Type 2 diabetes mellitus with both eyes affected by mild nonproliferative retinopathy without macular edema, with long-term current use of insulin ([facility]) Social History Tobacco Use Smoking [...] daily 50 units) (100 UNIT/ML SOPN) Labs [facility] HEMOGLOBIN A1C/HEMOGLOBIN.TOTAL:MFR:PT:BLD:QN: 8.1 Outpatient prescription Medication marked as long-term The ASCVD Risk score ([place] DK, et al., 2019) failed to calculate [...] Charcot's joint arthropathy (HCC) Long-term insulin use ([facility]) Class 2 severe obesity with serious comorbidity and body mass index (BMI) of 35.0 to 35.9 in adult ([facility]) Type 2 diabetes mellitus with both eyes affected by mild nonproliferative retinopathy without macular edema, with long-term current use of insulin ([facility]) Follow up in about 3 [...] PO) Take by mouth CONTINUOUS BLOOD GLUC VET TECH (DEXCOM G7 VET TECH) DEVICE USE DIRECTED CONTINUOUS BLOOD GLUC SENSOR [...] the patient today. documented in this encounter [facility] 05-31-2025 Evaluation note Diagnosis Onset Date Resolution Chronic pain acute May 31 8:03am Sacroiliitis, not elsewhere classified acute May 31 8:03am Trochanteric bursitis acute May 8:03am [facility] Work Phone: 1(602) 109-459607-02-2025 Evaluation note* Diagnosis Onset Date Resolution Status Admit Date Chronic pain acute May 31 8:03am Sacroiliitis, not elsewhere classified acute May 31, 2025 8 :03am Trochanteric bursitis acute May 8:03am Chronic pain acute June 21, 025 9:03am Sacroiliitis, not elsewhere classified acute June 21, 2025 9:03am Trochanteric bursitis acute May 9:03am [facility] Work Phone: 1(755) 835-373407-02-2025 Evaluation note* Diagnosis Onset Date Resolution Status [...] Oral thrush acute July 12, 2025 7:36am [facility] Work Phone: 1(188) 731-372306-16-2025 History of Present illness Narrative* Shaina Munroe, [...] (BMI) of 35.0 to 35.9 in adult ([facility]) Type 2 diabetes mellitus with both eyes affected by mild nonproliferative retinopathy without macular edema, with long-term current use of insulin ([facility]) Social History Tobacco Use Smoking [...] units dinner (500 UNIT/ML SOPN) -Discontinued Labs [facility] HEMOGLOBIN A1C/HEMOGLOBIN.TOTAL:MFR:PT:BLD:QN: 8.1 Outpatient prescription Medication marked [...] KWIKPEN) 100 UNIT/ML injection insulin pen needle (A2B Unifine Pentips) 31G X 8 mm misc Other Relevant Orders POCT glycosylated hemoglobin (Hb A1C) docked device (Completed) 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) - Primary Long-term insulin use (HCC) Class 2 severe obesity with serious comorbidity and body mass index (BMI) of 35.0 to 35.9 in adult ([facility]) Type 2 diabetes mellitus with both eyes affected by mild nonproliferative retinopathy without macular edema, with long-term current use of insulin ([facility]) Follow up in about 3 [...] PO) Take by mouth CONTINUOUS BLOOD GLUC VET TECH (DEXCOM G7 VET TECH) DEVICE USE DIRECTED CONTINUOUS BLOOD GLUC SENSOR [...] 100 units) INSULIN PEN NEEDLE ([facility] PENTIPS) 31G X 8 MM MISC Drug [facility] Unifine Pentips 31G X 8 MMmisc Injection subcutaneous tid USE DIRECTED Discontinued Medications No medications on file I have reviewed and reconciled the history and medication list with the patient today. documented [facility] [id number] Evaluation note* Diagnosis Onset Date Resolution Status [...] 2025 8:03am Trochanteric bursitis acute May 8:03am [facility] Work Phone: 1(174) 961-381002-19-2025 Evaluation note* Diagnosis Onset Date Resolution Status [...] region acu te March 06, 2025 7:41am [facility] Work Phone: 1([phone]) 671-645202-10-2025 Evaluation note* Author France Carlson [facility] Authored January 09, 2025 11:30am The above note written by ITZ Canchola acting as human recorder, note dictated by Dr. Charan Casey. [facility] Work Phone: 1([phone]) 797-276802-10-2025 Telephone encounter Note* Telephone Encounter - Kati Clint - 01/09/2025 1:09 PM EST Pt's spouse called to ask if Dr. Merritt has any dexcom G7 sensors. She has been without for over aweek. Her prescription has been delayed due to insurance issues, She is having an injection tomorrow and is worried about her bg readings. [facility] [id number] Miscellaneous Notes* Telephone Encounter - Kati Jaramillo - 01/09/2025 1:09 PM EST Pt's spouse called to ask if Dr. Merritt has any dexcom G7 sensors. She has been without for over aweek. Her prescription has been delayed due to insurance issues, She is having an injection tomorrow and is worried about her bg readings. documented in this encounterNOFreeman Cancer [id number] Evaluation note* Author France Carlson [facility] Authored January 09, 2025 10:30am The above note written by ITZ Canchola acting as human recorder, note dictated by Dr. Charan Casey. [facility] Work Phone: 1(347) 237-195911-20-2024 Evaluation note* Diagnosis Onset Date Resolution Status [...] with radiculopathy, lumbar region acute Nov 9:01am [facility] Work Phone: 1(547) 500-532111-20-2024 Evaluation note* Diagnosis Onset Date Resolution Status [...] rig ht shoulder acute December 29 7:33am [facility] Work Phone: 1([phone] 413-215811-19-2024 History of Present illness Narrative* Shaina Munroe, - 10/18/2024 8:35 PM ESTAssociated Problem(s): Type [...] levels elevate. Under more stress with her [employer]. Diet: low carb, increase protein Drinks: water, [...] (BMI) of 39.0 to 39.9 in adult ([facility]) Type 2 diabetes mellitus with both eyes affected by mild nonproliferative retinopathy without macular edema, with long-term current use of insulin ([facility]) Social History Tobacco Use Smoking [...] Type 2 diabetes mellitus with peripheral neuropathy ([facility]) - Primary During the appointment today all [...] 2 diabetes mellitus with Charcot's joint arthropathy ([facility]) Long-term insulin use ([facility]) Class 2 severe obesity with serious comorbidity and body mass index (BMI) of 39.0 to 39.9 in adult ([facility]) Type 2 diabetes mellitus with both eyes affected by mild nonproliferative retinopathy without macular edema, with long-term current use of insulin ([facility]) Follow up in about 4 months (around 02/14/2025) for Recheck. Patient's Medications New Prescriptions No medications on file Previous Medications ALLOPURINOL (ZYLOPRIM) 100 MG TABLET Take 100 mg by mouth in the morning. ASPIRIN 81 MG CHEWABLE TABLET 1 (one) time each day at the same time. BENICAR 40 MG TABLET 1 (one) time each day at the same time. CONTINUOUS BLOOD GLUC VET TECH (DEXCOM G7 VET TECH) DEVICE USE DIRECTED CONTINUOUS BLOOD GLUC SENSOR (DEXCOM G7 SENSOR) [facility], CHANGE EVERY 10 DAYS GNP [...] with the patient today. documented in this encounterWestern [facility] Health [id number] [facility]* Diagnosis Onset Date Resolution Status Admit Date Chronic pain acute August 8:03am Osteoarthritis of spine with radiculopathy, lumbar region acute Aug 8:03am Sacroiliitis, not elsewhere classified acute September 12 8:03am Chronic pain acute September 8:01am Osteoarthritis of spine with radiculopathy, lumbar region acute Sep 8:01am [facility] Work Phone: [phone]) [phone] Evaluation note* Diagnosis Onset Date Resolution Status [...] shoulder acute October 25, 2 024 8:44am [facility] Work Phone: [phone]) 466-735210-14-2024 Evaluation note* Diagnosis Onset Date Resolution Status [...] 8:44am Cough acute December 09, 2024 10:00am [facility] Work Phone: 1([phone] History of Present illness Narrative* Rosalinda Torres [...] remains way above target and due to Nxxkgit-Ismxp-Jwqjp joints she has limited exercise capacity. Her [...] machine patient has been compliant with it. 9-Xhocnrh-Gatin-Tooth joint in the ankles status post recent [...] , Rfl: ergocalciferol (Vitamin D-2) 1.25 MG (64735 UT) capsule, Take 1 capsule (50,000 Units) [...] type, unspecified whether angina present, unspecified whether alatna or transplanted heart Follow Up In Cardiology [...] exam, discussion and plan. documented in this [facility] Work Phone: 1([phone]) 616-260209-26-2024 Instructions* Patient Instructions* Enedina Isidro LPN - [...] Provided instructions on exercise. documented in this [facility] Work Phone: 1(190) 328-113107-02-2024 [facility] History of Present illness Narrative* Rosalinda [...] She has orthopedic problems resulting from her Xayexli-Xsjgj-Tpcou disease. Her labs have been followed closely. [...] machine patient has been compliant with it. 7-Qzflpcr-Iuzjk-Tooth joint in the ankles status post recent [...] , Rfl: ergocalciferol (Vitamin D-2) 1.25 MG (98933 UT) capsule, Take 1 capsule (50,000 Units) [...] type, unspecified whether angina present, unspecified whether alatna or transplanted heart Follow Up In Cardiology 2. Essential hypertension 3. 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 4. Hyperlipidemia, unspecified hyperlipidemia type 5. Obstructive sleep apnea syndrome 6. Class 2 obesity with body mass index (BMI) of 37.0 to 37.9 in adult, unspecified obesity type, unspecified whether serious comorbidity present 7. Insulin-requiring or dependent type II diabetes mellitus ([facility]) Scribe Attestation By signing my name below, [...] exam, discussion and plan. documented in this [facility] Work Phone: 1([phone]) 775-517703-25-2024 Instructions* Patient Instructions* Enedina Isidro LPN - [...] 6 m Same medications [facility] Phone: [phone]) 322-214901-31-2024 Evaluation note* Encounter Date Diagnosis Assessment Notes [...] to call if she does not improve. [facility] Other 12-05-2023 Evaluation note* Encounter Date Diagnosis Assessment Notes Treatment Notes Treatment Clinical Notes Oct, Hyperlipidemia (ICD-10 - E78.5) [facility] Other 11-29-2023 Evaluation note* Encounter Date Diagnosis Assessment Notes Treatment Notes Treatment Clinical Notes Sep, Trochanteric bursitis of left hip (ICD-10 - M70.62) [facility] Other 11-29-2023 Evaluation note* Encounter Date Diagnosis [...] note writ ten by Willi Leiva MA, Sawmilling Operator. Edited and approved by Dr. Blas Ortiz MD. [facility] Other 11-22-2023 Evaluation note* Encounter Date Diagnosis [...] of symptoms occur by end of treatment. [facility] Other 11-20-2023 Evaluation note* Encounter Date Diagnosis Assessment Notes Treatment Notes Treatment Clinical Notes Sep, Cervical spondylosis without myelopathy (ICD-10 - M47.812) [facility] Other 11-08-2023 Evaluation note* Encounter Date Diagnosis Assessment Notes Treatment Notes Treatment Clinical Notes Sep, Hypertensive chronic kidney disease with stage 1 through stage 4 chronic kidney disease, or unspecified chronic kidney disease (ICD-10 - I12.9) [facility] Other 11-07-2023 History and physical note Author Yasmeen Treadwell [facility] October 06, 2023 8:31am Note Date/Time October 06, 2023 8 :31am [facility] [address] [place] [address] Gastroenterology H&P Signed Patient: Rita Cobb MR#: [id number] 365 : 1960 Acct:[id number] Age/Sex: 62 / F Adm Date: 3 Loc: Room: Type: [facility] Attending Dr: Yasmeen Treadwell MD Copies to: [...] <Electronically signed by Yasmeen Treadwell MD> 10/06/23830 [facility] Work Phone: 1([phone]) 190-395511-07-2023 [facility] Evaluation note* Encounter Date Diagnosis Assessment [...] note writ ten by Corina Sánchez LPN, Sawmilling Operator. Edited and approved by Dr. Blas Ortiz MD. [facility] Other 10-17-2023 Evaluation note* Encounter Date Diagnosis [...] risk of worsening renal function and hematuria. [facility] Other 09-19-2023 Evaluation note* Encounter Date Diagnosis Assessment Notes Treatment Notes Treatment Clinical Notes Jul, Hyperuricemia (ICD-1 0 - E79.0) Jul, Diabetic neuropathy (ICD-10 - E11.40) [facility] Other 09-18-2023 Evaluation note* Encounter Date Diagnosis [...] note writ ten by Corina Sánchez LPN, Sawmilling Operator. Edited and approved by Dr. Blas Ortiz MD. [facility] Other 09-12-2023 Evaluation note* Encounter Date Diagnosis [...] Low back pain, unspecified (ICD-10 - M54.50) [facility] Other 09-06-2023 Evaluation note* Encounter Date Diagnosis [...] Screening for colon cancer (ICD-10 - Z12.11) [facility] Other 08-03-2023 Evaluation note* Encounter Date Diagnosis Assessment Notes Treatment Notes Treatment Clinical Notes Jun, Type 2 diabetes mellitus with diabetic neuropathy, unspecified (ICD-10 - E11.40) [facility] Other 06-20-2023 Evaluation note* Encounter Date Diagnosis [...] M47.812) Refill provided of the above medication. [facility] Other 06-06-2023 Evaluation note* Encounter Date Diagnosis Assessment Notes Treatment Notes Treatment Clinical Notes Apr, Type 2 diabetes mellitus with diabetic neuropathy, unspecified (ICD-10 - E11.40) [facility] Other 05-15-2023 NotePROCEDURE: XR FOOT LT 2V HISTORY: Pain COMPARISON: XR foot left 04/07/2023 FINDINGS: BONES:Several intraoperative spot fluoroscopic images demonstrate removal of 3 separate lag screws fixating the second and fourth metatarsophalangeal joints. SOFT TISSUES:Expected intraoperative findings. OTHER: Negative. IMPRESSION: 1. Hardware revision involving left midfoot. Electronically authenticated by: BLANKA OLGUIN Date: 2023-04-13 11:35[facility]05-15-2023 NotePROCEDURE: XR FOOT LT MIN 3 VIEWS [...] Electronically authenticated by: BLANKA OLGUIN Date: 2023-04-13 11:29[facility]05-09-2023 NotePROCEDURE: XR FOOT LT MIN 3 VIEWS [...] Electronically authenticated by: BLANKA OLGUIN Date: 2023-04-07 13:31[facility]05-08-2023 Evaluation note* Encounter Date Diagnosis Assessment Notes Treatment Notes Treatment Clinical Notes March, Type 2 diabetes mellitus with diabetic neuropathy, unspecified (ICD-10 - E11.40) March, Type 2 diabetes mellitus with hyperglycemia, without long-term current use of insulin (ICD-10 - E11.65) [facility] Other 05-02-2023 Evaluation note* Encounter Date Diagnosis [...] as scheduled. Most recent A1C was 7.0. [facility] Other 04-27-2023 Evaluation note* Encounter Date Diagnosis Assessment Notes Treatment Notes Treatment Clinical Notes Feb, Hypertensive chronic kidney disease with stage 1 through stage 4 chronic kidney disease, or unspecified chronic kidney disease (ICD-10 - I12.9) Feb, Type 2 diabetes mellitus with diabetic neuropathy, unspecified (ICD-10 - E11.40) [facility] Other 04-11-2023 Evaluation note* Encounter Date Diagnosis [...] have advised to continue with oral magnesium. [facility] Other 04-05-2023 Evaluation note* Encounter Date Diagnosis Assessment Notes Treatment Notes Treatment Clinical Notes Feb, Hyperlipidemia (ICD-10 - E78.5) [facility] Other 04-05-2023 Evaluation note* Encounter Date Diagnosis Assessment Notes Treatment Notes Treatment Clinical Notes Feb, Obstructive apnea (ICD-10 - G47.33) Feb, Insomnia (ICD-10 - G47.00) Feb, Neuropathy (ICD-10 - G62.9) [facility] Other 04-05-2023 NotePROCEDURE: XR FOOT LT MIN [...] Electronically authenticated by: BLANKA OLGUIN Date: 2023-03-04 06:39[facility]03-20-2023 Evaluation note* Encounter Date Diagnosis Assessment Notes Treatment Notes Treatment Clinical Notes Jan, Hypertensive chronic kidney disease with stage 1 through stage 4 chronic kidney disease, or unspecified chronic kidney disease (ICD-10 - I12.9) Jan, Diabetic neuropathy (ICD-10 - E11.40) [facility] Other 03-09-2023 Evaluation note* Encounter Date Diagnosis Assessment Notes Treatment Notes Treatment Clinical Notes Jan, Hyperuricemia (ICD-1 0 - E79.0) [facility] Other 03-08-2023 NotePROCEDURE: XR FOOT LT MIN [...] Electronically authenticated by: BRODERICK FLOR Date: 2023-02-04 09:36[facility]02-22-2023 NotePROCEDURE: XR FOOT LT MIN 3 VIEWS [...] Electronically authenticated by: BLANKA OLGUIN Date: 2023-01-21 10:26[facility]02-20-2023 Evaluation note* Encounter Date Diagnosis Assessment Notes Treatment Notes Treatment Clinical Notes Dec, Diabetic neuropathy (ICD-10 - E11.40) [facility] Other 01-30-2023 NotePROCEDURE: XR FOOT LT MIN [...] Electronically authenticated by: BLANKA OLGUIN Date: 2022-12-29 17:33[facility]01-30-2023 NotePROCEDURE: XR FOOT LT MIN 3 VIEWS, [...] authenticated by: BLANKA OLGUIN Date: 2022-12-29 17:33[facility] [id number] NotePROCEDURE: XR FOOT LT 2V HISTORY: Pain COMPARISON: XR foot bilateral 11/12/2022 FINDINGS: BONES:Multiple intraoperative spot fluoroscopic images demonstrate resection of the bases of the metatarsals followed by midfoot fusion via lag screws. Talocalcaneal fusion. SOFT TISSUES:Expected intraoperative findings. IMPRESSION: 1. Midfoot resection and fusion. 2. Talocalcaneal fusion. Electronically authenticated by: BLANKA OLGUIN Date: 2022-12-29 17:31[facility]01-24-2023 NoteEXAM: XR CHEST 2 V HISTORY: Pre-surgery [...] Electronically authenticated by: ACOSTA JOHNSON Date: 2022-12-23 12:48[facility]11-29-2022 Evaluation note* Encounter Date Diagnosis Assessment Notes Treatment Notes Treatment Clinical Notes Sep, Encounter for immunization (ICD-10 - Z23) Patient presents today for Shingrix vaccination #1 of 2. Patient denies current acute illness, denies any past allergy or serious reaction to previousvaccine or ingredients. Shingrix Vaccine material and current VIS discussed and provided to patient. [facility] Other [id number] Evaluation note* Encounter Date Diagnosis Assessment Notes Treatment Notes Treatment Clinical Notes Sep, Encounter for immunization (ICD-10 - Z23) Patient denies current illness, previous allergic reaction to influenza vaccine, eggs, or other vaccines, and Guillain-[place] Syndrome. Patient given current editions of influenza Vaccine Information Statement (VIS). [facility] Other 11-17-2022 Evaluation note* Encounter Date Diagnosis Assessment Notes Treatment Notes Treatment Clinical Notes Sep, Hypertensive chronic kidney disease with stage 1 through stage 4 chronic kidney disease, or unspecified chronic kidney disease (ICD-10 - I12.9) [facility] Other 11-17-2022 Evaluation note* Encounter Date Diagnosis Assessment Notes Treatment Notes Treatment Clinical Notes Sep, Encounter for immunization (ICD-10 - Z23) Patient presents today for COVID-19 vaccination booster. Patient pre-vaccination form answers reviewed. Patient denies current illness or allergic reaction to any component of a COVD-19 vaccine. Patient provided with copy of current EUA. [facility] Other 10-26-2022 Evaluation note* Encounter Date Diagnosis [...] her to take a low phosphorus diet. [facility] Other 10-04-2022 Evaluation note* Encounter Date Diagnosis [...] E11.40) Pateint continues on the above medications. [facility] Other 09-08-2022 Evaluation note* Encounter Date Diagnosis Assessment Notes Treatment Notes Treatment Clinical Notes Jul, Diabetic neuropathy (ICD-10 - E11.40) [facility] Other 08-17-2022 Evaluation note* Encounter Date Diagnosis Assessment Notes Treatment Notes Treatment Clinical Notes Jun, Hyperlipidemia (ICD-10 - E78.5) Jun, CKD (chronic kidney disease) stage 3, GFR 30-59 ml/min (ICD-10 - N18.3) Jun, Essential hypertension (ICD-10 - I10) [facility] Other 08-03-2022 Evaluation note* Encounter Date Diagnosis Assessment Notes Treatment Notes Treatment Clinical Notes Jun, Type 2 diabetes mellitus with diabetic neuropathy, unspecified (ICD-10 - E11.40) [facility] Other 06-01-2022 Evaluation note* Encounter Date Diagnosis Assessment Notes Treatment Notes Treatment Clinical Notes Apr, Obstructive apnea (ICD-10 - G47.33) Apr, Insomnia (ICD-10 - G47.00) Apr, Neuropathy (ICD-10 - G62.9) [facility] Other 05-16-2022 Evaluation note* Encounter Date Diagnosis [...] Patient is to continue to follow with nurse practitioner home assessments as scheduled. March, Shortness of breath (ICD-10 - R06.02) Patient is to continue to follow with the nurse practitioner home assessments as scheduled. March, Parathyroid disease (ICD-10 - E21.5) Patient is to continue to follow with the specialist as scheduled. March, Charcot foot due to diabetes mellitus (ICD-10 - E11.610) Patient is to continue to follow with as scheduled. [facility] Other 05-09-2022 Evaluation note* Encounter Date Diagnosis Assessment Notes Treatment Notes Treatment Clinical Notes March, Type 2 diabetes mellitus with diabetic neuropathy, unspecified (ICD-10 - E11.40) March, Type 2 diabetes mellitus with hyperglycemia, without long-term current use of insulin (ICD-10 - E11.65) [facility] Other 03-24-2022 Evaluation note* Encounter Date Diagnosis [...] her to take a low phosphorus diet. [facility] Other 03-11-2022 Evaluation note* Encounter Date Diagnosis [...] her symptoms worsen. 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 I did provide a work note excuse today. Jan, Shortness of breath (ICD-10 - R06.02) In house EKG ordered and reviewed. Cardiac consult recommended as above. Jan, Diabetic neuropathy (ICD-10 - E11.40) Worsening bilateral neuropathy reported by the patient . she has been consulting with marine architect who per patient has suggested it may [...] The patient encourged to follow up with dinker as scheduled, discussion was had she would benefit from a pulmonary function test. [facility] Other 02-22-2022 Evaluation note* Encounter Date Diagnosis Assessment Notes Treatment Notes Treatment Clinical Notes Dec, Type 2 diabetes mellitus with diabetic neuropathy, unspecified (ICD-10 - E11.40) [facility] Other 01-04-2022 Evaluation note* Encounter Date Diagnosis [...] deficiency (ICD-10 - E55.9) Blood work ordered. [facility] Other 02-01-2015 History general Narrative - Reported* [...] necrotizing fasciitis 2017 Hospitalization History see above [facility] Other 02-01-2015 History general Narrative - Reported* [...] necrotizing fasciitis 2017 Hospitalization History see above [facility] Other 02-01-2015 History general Narrative - Reported* [...] necrotizing fasciitis 2017 Hospitalization History see above [facility] Other 02-01-2015 History general Narrative - Reported* [...] necrotizing fasciitis 2017 Hospitalization History see above [facility] Other 02-01-2015 History general Narrative - Reported* [...] necrotizing fasciitis 2017 Hospitalization History see above [facility] Other 02-01-2015 History general Narrative - Reported* [...] necrotizing fasciitis 2017 Hospitalization History see above [facility] Other 02-01-2015 History general Narrative - Reported* [...] necrotizing fasciitis 2017 Hospitalization History see above [place] [facility] Other Evaluation noteNort [facility] Other Evaluation noteNo InformationNort [facility] Other Evaluation noteNort [facility] Other evaluation noteNo assessment information available [facility] Work Phone: Evaluation note* Diagnosis Coronary artery disease, unspecified vessel or lesion type, unspecified whether angina present, unspecified whether [place] or transplanted heart- Primary Essential hypertension Unspecified essential hypertension 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 Hyperlipidemia, unspecified hyperlipidemia type Obstructive sleep apnea syndrome Obstructive sleep apnea (adult) (pediatric) Class 2 obesity with body mass index (BMI) of 37.0 to 37.9 in adult, unspecified obesity type, unspecified whether serious comorbidity present Insulin-requiring or dependent type II diabetes mellitus ([facility]) Type II or unspecified type diabetes mellitus without mention of complication, not stated as uncontrolled documented in this encounter [facility] Work Phone: Evaluation note* Diagnosis Onset Date Resolution Status Chronic pain acute Inflammation of sacroiliac joint acute Osteoarthritis of spine with radiculopathy, lumbar region acute Trochanteric bursitis acute [facility] Work Phone: Evaluation note* Diagnosis Onset Date Resolution Status Chronic pain acute Inflammation of sacroiliac joint acute Osteoarthritis of spine with radiculopathy, lumbar region acute Trochanteric bursitis acute CKD (chronic kidney disease) stage 3, GFR 30-59 ml/min acute Hyperlipidemia acute Hyperparathyroidism acute [id number] acute Hyperuricemia acute Hypomagnesemia acute Nephrolithiasis acute Type 2 diabetes mellitus wit h diabetic chronic kidney disease acute [facility] Work Phone: Evaluation note* Diagnosis Onset Date Resolution Status Chronic pain acute Inflammation of sacroiliac joint acute Osteoarthritis of spine with radiculopathy, lumbar region acute Trochanteric bursitis acute CKD (chronic kidney disease) stage 3, GFR 30-59 ml/min acute Hyperlipidemia acute Hyperparathyroidism acute [id number] acute Hyperuricemia acute Hypomagnesemia acute Nephrolithiasis acute Type 2 diabetes mellitus wit h diabetic chronic kidney disease acute Chronic pain acute Lumbar muscle pain acute Osteoarthritis of spine with radiculopathy, lumbar region acute [facility] Work Phone: evaluation note* Diagnosis Onset Date Resolution Status CKD (chronic kidney disease) stage 3, GFR 30-59 ml/min acute Hyperlipidemia acute Hyperparathyroidism acute [id number] acute Hyperuricemia acute Hypomagnesemia acute Nephrolithiasis acute Type 2 diabetes mellitus wit h diabetic chronic kidney disease acute Chronic pain acute Lumbar muscle pain acute Osteoarthritis of spine with radiculopathy, lumbar region acute Chronic pain acute Osteoarthritis of spine with radiculopathy, lumbar region acute Sacroiliitis, not elsewhere classified acute [facility] Work Phone: evaluation note* Diagnosis Onset Date Resolution Status Chronic pain acute Lumbar muscle pain acute Osteoarthritis of spine with radiculopathy, lumbar region acute Chronic pain acute Osteoarthritis of spine with radiculopathy, lumbar region acute Sacroiliitis, not elsewhere classified acute [facility] Work Phone: evaluation note* Diagnosis Onset Date Resolution Status Chronic pain acute Lumbar muscle pain acute Osteoarthritis of spine with radiculopathy, lumbar region acute Chronic pain acute Osteoarthritis of spine with radiculopathy, lumbar region acute Sacroiliitis, not elsewhere classified acute Obstructive apnea acute [facility] Work Phone: evaluation note* Diagnosis Onset Date Resolution Status Chronic pain acute Lumbar muscle pain acute Osteoarthritis of spine with radiculopathy, lumbar region acute Chronic pain acute Osteoarthritis of spine with radiculopathy, lumbar region acute Sacroiliitis, not elsewhere classified acute Obstructive apnea acute Chronic pain acute Osteoarthritis of spine with radiculopathy, lumbar region acute Sacroiliitis, not elsewhere classified acute [facility] Work Phone: evaluation note* Diagnosis Onset Date Resolution Status Chronic pain acute Osteoarthritis of spine with radiculopathy, lumbar region acute Sacroiliitis, not elsewhere classified acute [facility] Work Phone: Evaluation note* Diagnosis Type 2 diabetes mellitus with peripheral neuropathy ([facility]/HCC)- Primary 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 (CMS/HCC) Long-term insulin use ([facility]) Class 2 severe obesity due to excess calories with serious comorbidity and body mass index (BMI) of 39.0 to 39.9 in adult ([facility]) Type 2 diabetes mellitus with peripheral neuropathy ([facility]/HCC)- Primary 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 ([facility]) Class 2 severe obesity due to excess calories with serious comorbidity and body mass index (BMI) of 39.0 to 39.9 in adult ([facility]) Long-term insulin use ([facility]) Spondylolisthesis at L3-L4 level Class 2 severe obesity due to excess calories with serious comorbidity and body mass index (BMI) of 38.0 to 38.9 in adult ([facility])- Primary Type 2 diabetes mellitus with both eyes affected by mild nonproliferative retinopathy without macular edema, with long-term current use of insulin ([facility]) Type 2 diabetes mellitus with peripheral neuropathy ([facility]) 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 ([facility]) Long-term insulin use ([facility]) Type 2 diabetes mellitus with peripheral neuropathy ([facility])- Primary 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 ([facility]) Type 2 diabetes mellitus with both eyes affected by mild nonproliferative retinopathy without macular edema, with long-term current use of insulin ([facility]) Long-term insulin use ([facility]) Class 2 severe obesity due to excess calories with serious comorbidity and body mass index (BMI) of 39.0 to 39.9 in adult ([facility]) documented in this encounter [facility] HealthcareEvaluation note* Diagnosis Coronary artery disease, unspecified vessel or lesion type, unspecified whether angina present, unspecified whether [place] or transplanted heart Elevated coronary artery calcium [...] serious comorbidity present documented in this encounter [facility] Work Phone: Evaluation note* Author France Carlson [facility] Authored January 09, 2025 10:30am The above note written by ITZ Canchola acting as human recorder, note dictated by Dr. Charan Casey. 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) Class 2 severe obesity due to excess calories with serious comorbidity and body mass index (BMI) of 39.0 to 39.9 in adult ([facility]) Long-term insulin use (HCC) Spondylolisthesis at L3-L4 level Class 2 severe obesity due to excess calories with serious comorbidity and body mass index (BMI) of 38.0 to 38.9 in adult ([facility])- Primary Type 2 diabetes mellitus with both [...] (BMI) of 39.0 to 39.9 in adult ([facility]) 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 [...] (BMI) of 37.0 to 37.9 in adult ([facility]) 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 [...] (BMI) of 35.0 to 35.9 in adult ([facility]) documented in this encounter [facility] HealthcareEvaluation note* Diagnosis Type 2 diabetes mellitus with peripheral neuropathy (HCC)- Primary 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) Long-term insulin use (HCC) Class 2 severe obesity due to excess calories with serious comorbidity and body mass index (BMI) of 39.0 to 39.9 in adult ([facility]) Type 2 diabetes mellitus with peripheral neuropathy (HCC)- Primary 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) Class 2 severe obesity due to excess calories with serious comorbidity and body mass index (BMI) of 39.0 to 39.9 in adult ([facility]) Long-term insulin use ([facility]) Spondylolisthesis at L3-L4 level Class 2 severe obesity due to excess calories with serious comorbidity and body mass index (BMI) of 38.0 to 38.9 in adult ([facility])- Primary Type 2 diabetes mellitus with both [...] (BMI) of 39.0 to 39.9 in adult ([facility]) 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)- Primary Type 2 diabetes mellitus with peripheral neuropathy (HCC) Type 2 diabetes mellitus with both eyes affected by mild nonproliferative retinopathy without macular edema, with long-term current use of insulin (HCC) Long-term insulin use ([facility]) Class 2 severe obesity due to excess calories with serious comorbidity and body mass index (BMI) of 37.0 to 37.9 in adult ([facility]) 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 ([facility])- Primary Type 2 diabetes mellitus with peripheral neuropathy ([facility]) Type 2 diabetes mellitus with both eyes affected by mild nonproliferative retinopathy without macular edema, with long-term current use of insulin (HCC) Long-term insulin use ([facility]) Class 2 severe obesity due to excess calories with serious comorbidity and body mass index (BMI) of 35.0 to 35.9 in adult ([facility]) Type 2 diabetes mellitus with peripheral neuropathy (HCC)- Primary 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 ([facility]) Type 2 diabetes mellitus with both eyes affected by mild nonproliferative retinopathy without macular edema, with long-term current use of insulin (HCC) Long-term insulin use ([facility]) Class 2 severe obesity due to excess calories with serious comorbidity and body mass index (BMI) of 35.0 to 35.9 in adult ([facility]) [facility] Narrative - ReportedCashkaro [facility] Other History general Narrative - [facility]orted[facility] Other Hospital Discharge instructions Additional Instructions DISCHARGE [...] NOT operate machinery such as power tools, [employer] mowers, snow blowers, sewing machines, etc. for [...] years. -Follow up with PCP. -Office number [phone]. [facility] Work Phone: Reason for referral (narrative)* Consultation (Routine) - Authorized Specialty Diagnoses / Procedures Referred By Contac t Referred To Contact Cardiology Diagnoses Coronary artery disease, unspecified vessel or lesion type, unspecified whether angina present, unspecified whether [place] or transplanted heart Procedures Follow Up In Cardiology Rosalinda Torres MD [address] [facility] 2, [address] [address] Rosalinda Torres MD [address] [facility] [address], [address] [address] Referral ID Status Reason Start Date Expiration Date V isits Requested Visits Authorized [id number] Authorized 02/22/2024 02/21/2025 1 1 [facility] Work Phone: reason for referral (narrative)* Consultation (Routine) - Authorized Specialty Diagnoses / Procedures Referred By Contac t Referred To Contact Cardiology Diagnoses Coronary artery disease, unspecified vessel or lesion type, unspecified whether angina present, unspecified whether [place] or transplanted heart Procedures Follow Up In Cardiology Rosalinda Torres MD [address] [place] [address] 2, [address] [address] Rosalinda Torres MD [address] [place] [address] 2, [facility] [address] [place] [address] Referral ID Status Reason Start Date Expiration Date V isits Requested Visits Authorized [id number] Authorized 08/25/2024 08/25/2025 1 1 T [facility] Work Phone: reason for referral (narrative)No reason for referral information [facility] Work Phone: Summary Purpose Family History [...] Relationship Condition Age at Onset Recorded Date/T vreo grandparent Diabetes mellitus Unknown Unknown sibling Diabetes [...] the patient is agreeable to go on wivujwpsrjqz49 mg daily along with Zetia 10 mg [...] any trouble since her angioplasty. She has Nakxmcq-Deork-Xicng disease and had recent surgery on the [...] has been compliant with it. * 7 Gcsmweb-Sfkte-Nzfyh joint in the ankles status post recent surgery on the left foot with plan to repair the right foot down the road Reason for Referral Reason Patient is need ing to having screening colonoscopy. Please schedule with [facility]. Patient DOES NOT want to see Dr. Bryant. Please call patient to schedule Diagnosis 1 Screening for colon cancer (Z12.11) Referral Organization [facility] [place] Referring Provider First Name Charan Referring Provider Last Name Jacinto Referring Provider Specialty Family Giancarlo pop Referred Organization [facility] Gastroenterolo gy Referred Provider Yasmeen Treadwell Referred Address [address] [facility] [address] ,[place], [place],[address] Referred Provider Specialty Gastroentero logy Referral Priority Routine General Notes ForeRenée M 023 10:30:05 AM >Received today and sent P2P Reason stat consult and lou at Diagnosis 1 Chest pressure (R07. 89) Diagnosis 2 Shortness of breath (R06.02) Diagnosis 3 Type 2 diabetes wicho itus with diabetic neuropathy, unspecified (E11.40) Diagnosis 4 Obstructive apnea (G 47.33) Referral Organization [facility] [place] Referring Provider First Name Charan Referring Provider Last Name Jacinto Referring Provider Specialty Family Giancarlo lord Referred Organization [facility] Referred Address [address] [facility] [facility] [address],[place], [place],[address] Referred Provider Specialty Cardiology Referral Priority Stat [...] stage 3, GFR 30-59 ml/min Hyperlipidemia Hyperparathyroidism [id number] Hyperuricemia Hypomagnesemia Nephrolithiasis Type 2 diabetes mellitus [...] stage 3, GFR 30-59 ml/min Hyperlipidemia Hyperparathyroidism [id number] Hyperuricemia Hypomagnesemia Nephrolithiasis Type 2 diabetes mellitus [...] stage 3, GFR 30-59 ml/min Hyperlipidemia Hyperparathyroidism [id number] Hyperuricemia Hypomagnesemia Nephrolithiasis Type 2 diabetes mellitus [...] stage 3, GFR 30-59 ml/min Hyperlipidemia Hyperparathyroidism [id number] Hyperuricemia Hypomagnesemia Nephrolithiasis Type 2 diabetes mellitus [...] Shoulder January 26, 2025 9:45am MRI RESULTS [facility] January 26, 2025 12:50pm Reason for Visit [...] :33am dementia concerns; bone structure; SOB F [facility] 2024 9:06am F/U 2ND LUMB MBB January 18, 2025 8:00am M75.101 January 23, 2025 12:43pm MRI RESULTS [facility] January 26, 2025 12:50pm Rotator cuff syndrom R Shoulder January 8:30am LAURA LUMB RFA L3 L5/CJ February 01, 2025 12:29pm Chief Complaint Admit Date R05.9 December 08, 2024 10 :46am acute illness/ CXR ordered/ per Dr. Casey December 09, 2024 10:00am F/U 1st LAURA LUMBAR MBB December 26 9:01am 8 WK RECHECK December 29, 2024 7 :33am dementia concerns; bone structure; SOB F [facility] 2024 9:06am F/U 2ND LUMB MBB January 18, 2025 8:00am M75.101 January 23, 2025 12:43pm MRI RESULTS [facility] January 26, 2025 12:50pm Rotator cuff syndrom [...] M75.101 January 23, 2025 12:43pm MRI RESULTS [facility] January 26, 2025 12:50pm Rotator cuff syndrom [...] M75.101 January 23, 2025 12:43pm MRI RESULTS [facility] January 26, 2025 12:50pm Rotator cuff syndrom [...] 8:03a m Sacroiliitis, not elsewhere classified [facility] 2024 8:03am Trochanteric bursitis May [...] 8:03a m Sacroiliitis, not elsewhere classified J [facility] 2024 8:03am Trochanteric bursitis May 31, 2025 8:0 3am Chronic pain June 21, 2025 9:03 am Sacroiliitis, not elsewhere classified J [facility] 2024 9:03am Trochanteric bursitis June [...] 8:03a m Sacroiliitis, not elsewhere classified J [facility] 2024 8:03am Trochanteric bursitis May 31, 2025 8:0 3am Chronic pain June 21, 2025 9:03 am Sacroiliitis, not elsewhere classified J [facility] 2024 9:03am Trochanteric bursitis June 21, 2025 9: 03am Diabetic foot ulcer associat ed with type 2 diabetes mellitus, with fat laye July 12, 2025 7:36am MRSA bacteremia July 12, 2025 7: 36am Oral thrush July 12, 2025 7: 36am Additional Source Comments INFORMATION SOURCE (unrecogn ized section and content) DATE CREATED AUTHOR 07/28/2018 [facility] DATE CREATED AUTHOR AUTHOR'S ORGANIZ ATION 03/18/2022 [facility] DATE CREATED AUTHOR AUTHOR'S ORGANIZ ATION 10/17/2022 [facility] DATE CREATED AUTHOR AUTHOR'S ORGANIZ ATION 04/13/2023 [facility] DATE CREATED AUTHOR AUTHOR'S ORGANIZ ATION 05/08/2023 [facility] DATE CREATED AUTHOR AUTHOR'S ORGANIZ ATION 05/08/2023 [facility] DATE CREATED AUTHOR AUTHOR'S ORGANIZ ATION 02/23/2024 [facility] DATE CREATED AUTHOR AUTHOR'S ORGANIZ ATION 06/09/2025 [facility] DATE CREATED AUTHOR AUTHOR'S ORGANIZ ATION 07/29/2025 [facility] d[facility] EPIC REASON FOR VISIT (unrecogniz ed section and content) Reason Comments Follow-up 6m Specialty Diagnoses / Procedures Referred By Princess bird Referred To Contact Cardiology Diagnoses Coronary artery disease, unspecified vessel or lesion type, unspecified whether angina present, unspecified whether [place] or transplanted heart Procedures Follow Up In Cardiology Rosalinda Torres MD [address] [facility] 2, [address] [id number] Rosalinda Torres MD [address] [facility] 2, [facility] [address] [place] [address] Referral ID Status Reason Start Date Expiration Date V isits Requested Visits Authorized [id number] Pending Review 02/22/2024 02/21/2025 1 1 Reason Comments Diabetes Reason Comments Follow-up [address] 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, back4 month Follow uppap issuesSHINGRIX #2 // [facility] THROUGH SPOUSESHINGRIX #1 // [facility] TRADITIONAL PLAN THROUGH SPOUSEMODERNA BIVALENT BOOSTERAFLURIA FLU VACCINECKD and HTNreview labSLEEP LABhosp recheck/ discuss disability processDocumentationFYI/ updateDisability paperworkEmployee Program F/UCKDPt no show Employee Diabetes Ed program 4/8Clinicalneuropathy, chest pressure ,SOBfyirefillsneeds [facility], [facility] [phone] Care Teams (unrecognized sec tion and content) Team Status: Active Member Role Status Josafat Casey , DO Primary Care Provider Active Team Status: Inactive Member Role Status Josafat Casey , DO Primary Care Provider Active Federico Sepulveda MD Attending Provider Active Team Status: Inactive Member Role Status Josafat Casey , DO Primary Care Provider Active Renée Watts [facility] Attending Provider Active Team Status: Inactive Member [...] DO Primary Care Provider Active Renée Watts [facility] Attending Provider Active Team Status: Inactive Member [...] Inactive Member Role Status Dates Blas Bellamy [employer] MACHINE-C Attending Provider Activ e Start: October 21, [...] December 30, 2023 End: December 30, 2023 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 Roller 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 Relationship Specialty Start Date End Date Charan Casey DO [address] [facility] [address] [place] [address] PCP - General Family Medicine 02/22/24 Rosalinda Torres MD [address] [facility] 2, [place] [address] [place] [phone] Consulting Physician Cardiology 02/22/24 Team Status: Inactive Member Role Status Dates Charan Kuns , DO Primary Care Provider Active Sta rt: February 04, 2024 End: February 04, 2024 Blas Ortiz MD Attending Provider Active Sta rt: February 04, 2024 End: February 04, 2024 Team Status: Active Member Role Status Dates Charan aCsey , Primary Care Provider Active Sta rt: February 12, 2024 ITZ Marsh Attending Provider Active Start: February 12, 2024 Team Status: Active Member Role Status Dates Charan Casey , Primary Care Provider Active Sta rt: February 17, 2024 Kellie Garcia LPN Attending Provider Active Sta rt: February 17, 2024 Team Status: Active Member Role Status Dates Charan aCsey , Primary Care Provider Active Sta rt: [...] October 19, 2024 End: October 19, 2024 Stem Roller Operator Relationship Specialty Start Date End Date Charan Casey MD [address] [place] [phone] PCP - General 05/20/23 Moni Becker MD [address] [facility] [address] [place] [address] PCP - [facility] 07/31/24 11/29/24 Stem Roller Operator Relationship Specialty Start Date End Date Charan Casey DO PCP - General Family Medicine 02/22/24 Rosalinda Torres MD [address] [place] [address] 2, [facility] [address] [place] [address] Consulting Physician Cardiology 02/22/24 Team Status: Inactive [...] Status: Inactive Member Role Status Dates Charan aCsey DO Primary Care Provide r, Attending Provider [...] January 09, 2025 End: January 09, 2025 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 Roller Operator Relationship Specialty Start Date End Date Charan Casey MD [address] [place] [phone] PCP - General 05/20/23 Team Status: Active [...] January 31, 2025 End: January 31, 2025 Stem Roller Operator Relationship Specialty Start Date End Date Charan Casey DO [address] [place] [phone] PCP - General 05/20/23 Team Status: Inactive [...] July 12, 2025 End: July 12, 2025 Stem Roller Operator Relationship Specialty Start Date End Date Charan Casey DO [address] [place] [phone] PCP - General 05/20/23 Stem Roller Operator Relationship Specialty Start Date End Date Charan Casey DO [address] [place] [phone] PCP - General 05/20/23 Goals (unrecognized section [...] BE BASED ON THE PRIMARY CLINICAL RECORDS. [facility]. provides no warranty or guarantee of the accuracy or completeness of information in this document.
== END 2025-08-23 09:25 | disposition home or self-care (01) ==
LOC: WC 09:25
PROVIDERS: PCP Family Medicine; Visit Provider Physician Assistant
DX: E11.621 Type 2 diabetes mellitus with foot ulcer (principal); L97.423 Non-pressure chronic ulcer of left heel and midfoot with necrosis of muscle
CPT/HCPCS: 29445

== ENCOUNTER 2025-08-30 08:57 | Outpatient (OUT) | payer MEDICARE, SELFPAY ==
--- OUTSIDE RECORDS SUMMARY | 2025-07-27 08:00 | XMS_ITS ---
Author Name Auto Generated Organization [place] Care Team Providers Care Office Chair Assembler Name Role Phone MITCHEL MUNROE Attending Unavailable MITCHEL MUNROE Attending Unavailable MITCHEL MUNROE Attending Unavailable CHARAN DELGADILLO Referring Unavailable MITCHEL MUNROE Attending Unavailable Reniier Ortiz Admitting Unavailable Reinier Ortzi Attending Unavailable Charan Delgadillo Primary Care Unavailable Charan Delgadillo Primary Care Unavailable Torres Fernandez Admitting Unavailable Torres Fernandez Attending Unavailable Nader Curry Admitting Unavailable Nader Curry Attending Unavailable Charan Delgadillo Primary Care Unavailable Chaarn Delgadillo Primary Care Unavailable Torres Fernandez Admitting Unavailable Torres Fernandez Attending Unavailable Charan Delgadillo Attending Unavailable Charan Delgadillo Admitting Unavailable Charan Delgadillo Primary Care Unavailable Nader Curry Admitting Unavailable Charan Delgadillo Primary Care Unavailable Nader Curry Attending Unavailable Charan Delgadillo Primary Care Unavailable Self, Referral Admitting Unavailable Self, Referral Attending Unavailable Nader Curry Admitting Unavailable Charan Delgadillo Primary Care Unavailable Nader Curry Attending Unavailable Reinier Ortiz Admitting Unavailable Reinier Ortiz Attending Unavailable Charan Delgadillo Primary Care Unavailable PROBLEMS DATE TYPE CONDITION / CODE ATTENDING STATUS [facility] 01/23/2025 Unknown Unspecified rota tor cuff tear or rupture of right shoulder, not specified as traumatic / M75.101(ICD-10) Nader Curry [facility] 12/08/2024 Unknown Cough, unspecifi ed / R05.9(ICD-10) Charan Delgadillo [facility] 10/25/2024 Unknown Pain in right shoulder / M25.511(ICD-10) Nader Curry [facility] 09/02/2024 Unknown Charcot's joint, right ankle and foot / M14.671(ICD-10) Torres Fernandez [facility] PROCEDURES No Procedure Records Found RESULTS XR FOOT BI 3V Observed: 06/05/2025 5:35 PM Status: COMPLETED Source: [facility] [place] [address] XRay Report Signed Patient: oJy Asher MR#: [id number] : 1960 Acct:[id number] Age/Sex: 64 / F ADM Date: 06/05/25 Loc: XDS Room: Type: [facility] Attending Dr: Torres Fernandez DPM, MS Copies to: Torres Fernandez DPM, MS Ordering Provider: Torres Fernandez DPM, MS Date of Service: 06/05/25 XR/XR [...] Mays M.D. 06/05/2025 5:41 PM Dictation Location: [facility] Transcribed By: [facility] 06/05/25 174 Dictated By: Néstor Mays MD 06/05/251734 Signed By: <Electronically signed by Néstor Mays MD in OV> 06/05/25 174 MR SHOULDER RT WO CON Observed: 01/26/20 9:02 AM Status: COMPLETED Source: [facility] [place] [address] MRI Report Signed Patient: Joy Asher MR#: [id number] : 1960 Acct:[id number] Age/Sex: 64 / F ADM Date: 01/23/25 Loc: [facility] Room: Type: [facility] Attending Dr: Nader Curry DO Copies to: [...] [facility]OC[facility]ATED [facility]U[employer] Biceps Tendon: There is a partial-thickness/split thickness tear of the long head biceps [...] wo con IMPRESSION: 1. There is a partial-thickness/split thickness tear of the long head biceps [...] in the acromioclavicular joint. Impression dictated by: Benton Levi M.D.01/26/2025 9:38 AM Dictation Location: [place] [address] Transcribed By: [facility] 01/26/25937 Dictated By: Benton Levi II, MD 01/26/25901 Signed By: <Electronically signed by Benton Levi II, MD in OV> 01/26/25937 XR CHEST 2V* Observed: 12/08/2024 3:24 PM Status: COMPLETED Source: [facility] [place] [address] [place] [address] XRay Report Signed Patient: Joy Asher MR#: [id number] : 1960 Acct:[id number] Age/Sex: 64 / F ADM Date: 12/08/24 [facility]: Type[facility] CLI Attending Dr: Charan Delgadillo DO Copies to: Charan Delgadillo DO Ordering Provider: Charan Delgadillo DO Date of Service: 12/08/24 XR/XR chest [...] Néstor Mays M.D.12/08/2024 3:59 PM Dictation Location: [place] [address] Transcribed By: [facility] 12/08/24 1559 Dictated By: Néstor Mays MD 12/08/24 1524 Signed By: <Electronically signed by Néstor Mays MD in OV> 12/08/24 1559 XR SHOULDER RT MIN 2V* Observed: 024 9:08 AM Status: COMPLETED Source: [facility] [address] [place] [address] XRay Report Signed Patient: Joy Asher MR#: [id number] : 1960 Acct:[id number] Age/Sex: 63 / F ADM Date: 10/25/24 Loc: [facility] Room: Type: [facility] CLI Attending Dr: Nader Curry DO Copies [...] Ibis Crisostomo M.D.10/25/2024 9:11 AM Dictation Location: [place] [address] Transcribed By: [facility] 10/25/24910 Dictated By: Ibis Crisostomo MD 10/25/2408 Signed By: <Electronically signed by MD Ibis Crisostomo in OV> 10/25/24 0911 MM SCREENING MAMMO BI W/CAD Observed: 09/07/2024 9:00 AM Status: COMPLETED Source: [facility] [place] [address] Mammography Report Signed Patient: Joy Asher MR#: [id number] : 1960 Acct:[id number] Age/Sex: 63 / F ADM Date: 09/07/24 Loc: [place] Room: Type: [facility] Attending Dr: Referral Self Copies to: Charan Delgadillo DO SELF,REFERRAL Ordering Provider: SELF,REFERRAL Date of [...] mammogram. Impression dictated by: Sudhir Brown Jr., D.ODerek09/07/2024 9:04 AM Dictation Location: [facility] Transcribed By: FRANKY 09/07/24903 Dictated By: Sudhir Brown Jr, DO 09/07/24899 Signed By: <Electronically signed by Sudhir Brown Jr, DO in OV> 09/07/24 09 ALLERGIES No Allergies Records Found ENCOUNTERS ADMIT/DISCHARGE ACCOUNT NUMBER ADMITTING ENCOUNTER CLASS LOCATION SOURCE 07/27/2025/07/27/20 [id number] Ambulatory Building:[facility] 06/05/2025/06/05/20 25 [id number] [facility] 05/15/2025/05/15/20 25 [id number] Ambulatory Building:[facility] 02/14/2025/02/15/20 25 [id number] Ambulatory Building:[facility] 01/31/2025/02/01/20 25 [id number] Nader Curry [facility] 01/23/2025/01/23/20 25 [id number] Nader Curry [facility] 12/08/2024/12/08/19 25 [id number] Charan Delgadillo [facility] 11/01/2024/11/01/20 24 [id number] Reinier Ortiz [facility] 10/25/2024/10/25/20 24 [id number] Nader Curry [facility] 10/17/2024/10/17/20 24 [id number] Ambulatory Building:[facility] 09/20/2024/09/20/20 24 [id number] Reinier Ortiz [facility] 09/07/2024/09/07/20 24 [id number] Self, Referral [facility] 09/02/2024/09/02/20 24 [id number] Torres Fernandez [facility] PAYERS ENCOUNTER GUARANTOR PAYER SUBSCRIBER SOURCE 07/27/2025 JOY FUCHSKDOB: [place] [address]Ewg: (HP) Primary Insurance:[place] MEDICAREPolicy Number: [id number] Date:2024-11-30 JOY FUCHSKDOB: [id number] [place] [address] [facility] 05/15/2025 JOY FUCHSKDOB: [place] [address]Yro: (HP) Primary Insurance:[place] [place] MEDICAREPolicy Number: [id number] Date:2024-11-30 JOY FUCHSKDOB: [id number] [place] [address] [facility] 02/14/2025 JOY FUCHSKDOB: [place] [address]Yht: (HP) Primary Insurance:[place] MEDICAREPolicy Number: [id number] Date:2024-11-30 JOY FUCHSKDOB: [id number] [place] [address] [facility] 10/17/2024 JOY FUCHSKDOB: [place] [address]Bua: (HP) Primary Insurance:UNITED HEALTHCARE MEDICAREPolicy Number: [id number] Date:2024-07-31 JOY FUCHSKDOB: [id number] [place] [address] [facility] EPIC
== END 2025-08-30 08:58 | disposition home or self-care (01) ==
LOC: WC 08:57
PROVIDERS: PCP Family Medicine; Visit Provider Physician Assistant
DX: E11.621 Type 2 diabetes mellitus with foot ulcer (principal); L97.423 Non-pressure chronic ulcer of left heel and midfoot with necrosis of muscle
CPT/HCPCS: 11042; 29445

== ENCOUNTER 2025-09-06 09:35 | Outpatient (OUT) | payer MEDICARE, SELFPAY ==
--- OUTSIDE RECORDS SUMMARY | 2025-09-06 09:48 | XMS_ITS | CCD ---
Author Organization [facility] Care Team Providers Care Manager Winter Name Role Phone Charan Casey Unavailable Unavailable Unavailable Blas Ortiz Unavailable Charan Casey Unavailable Thierno Chatterjee Unavailable Renée Watts Unavailable Elpidio Whipple Unavailable Federico Sepulveda Unavailable [phone] DO Charan Casey Primary Care Provider [phone] DO Mathieu Paul Emergency Provider DO Charan Casey Other Provider MD Elpidio Whipple Attending Provider ROSS Ceja Attending Provider MD Dipak Amaro Attending Provider TIMOTEO Watts Attending Provider DO Charan Casey Primary Care Provider Eliud Rod Unavailable DO Charan Casey Primary Care Provider TIMOTEO Watts Attending Provider DO Charan Casey Primary Care Provider TIMOTEO Watts Attending Provider MD Federico Sepulveda Attending Provider MD Elpidio Whipple Attending Provider [phone] [employer] CASTR[employer] Consulting Unavailable DR YEISON CASEYAN [...] Scott Consulting Unavailable [employer] Unavailable [facility] [place], DR HAIDER Primary Care [...] Unavailable Kuns, DO Charan Primary Care Provider [phone] Kuns, DO Charan Attending Provider Kuns, DO Charan Primary Care Provider [phone] MD Blas Ortiz Attending Provider [phone] Kuns, DO Charan Primary Care Provider Kuns, DO Charan Attending Provider MD Thierno Chatterjee Attending Provider [phone] Yasmeen Treadwell Unavailable Kuns, DO Charan Primary Care Provider MD Blas Ortiz Attending Provider MD Elpidio Whipple Attending Provider Kuns, DO Charan Primary Care Provider MD Thierno Chatterjee Attending Provider [phone] MD Blas Ortiz Attending Provider MD Elpidio Whipple Attending Provider [phone] MD Yasmeen Treadwell Attending Provider [phone] Blas Bellamy Unavailable Kuns, DO Charan Primary Care Provider MD Blas Ortiz Attending Provider Kuns, DO Charan Attending Provider Kuns, DO Charan Primary Care Provider [phone] Kuns, DO Charan Primary Care Provider Kuns [...] Care Provider MD Blas Ortiz Attending Provider [phone] Kuns, DO Charan Primary Care Provider [phone] ROSS Castro Attending Provider Self, Referral Attending Provider Unavailable MD Blas Ortiz Attending Provider Kuns DO, Charan Primary Care Provider Acosta Castro DPM Attending Provider Self, Referral Attending Provider Unavailable Blas Ortiz MD Attending Provider Charan Casey MD Primary Care Provider Moni Becker MD Unavailable [phone] Kunbryn BASSETT, Charan P Primary Care Provider Kuns DO, Charan Primary Care Provider Nader Curry DO Attending Provider KunCharan clemente DO Attending Provider [phone] Kuns DO, Charan Primary Care Provider [phone] Blas Ortiz MD Attending Provider [phone] Kuns Charan BASSETT Primary Care Provider Nader Curry DO Attending Provider Nader Curry DO Attending Provider Jacinto BASSETT, Charan Primary Care Provider Charan Casey DO Attending Provider [phone] Nader Curry DO Attending Provider Jacinto DO, Charan Primary Care Provider Jacinto DOCharan P Primary Care Provider Kuns DO, Charan Primary Care Provider Brysons DO, Charan Attending Provider Blas Ortiz MD Attending Provider Jacinto DO, [...] Attending Provider Karla Lyons MD Attending Provider [phone] Charan Casey DO Attending Provider SHAINA MUNROE Attending Unavailable SHAINA MUNROE Attending Unavailable SHAINA MUNROE Attending Unavailable CHARAN CASYE Referring Unavailable SHAINA MUNROE Attending Unavailable Allergies Allergy Classification Reported Allergen(s) Allergy Type Date of Onset Reaction(s) Facility Lincosamides (antibiotic) (1 source) Clindamycin Drug Allergy 05-23-20 oral [facility] Quinolones (antibiotic) (1 source) levoFLOXacin Drug Allergy 05-23-20 24 hypoglycemia [facility] (20 sources) Erythromycin; Translations: [Erythromycin Base TABS] Drug Allergy 12-04-19 24 nausea, Nausea/vomiting , Unknown [facility] (20 sources) Clindamycin Drug Allergy 12-31-19 24 oral med - rash [facility] (20 sources) arzithomycin Propensity to adverse reactions 12-31-19 24 stomach upset [facility] (20 sources) erythromycin base; Translations: [Erythromycin Base] Propensity to adverse reactions 03-25-20 22 Nausea Only [facility] (2 sources) levoFLOXacin Drug Allergy [employer] Other (20 sources) levoFLOXacin; Translations: [LEVOFLOXACIN] Drug Allergy 12-31-19 24 Nausea/vomiting , GI intolerance [facility] Medications Current Medications Medication Drug Class(es) Dates [...] Take by mouth Active Continuous Blood Gluc Balancing Machine Set Up Worker (Dexcom G7 Balancing Machine Set Up Worker) device (8 sources) Start: 07-16-2023 Continuous Blo od Gluc Balancing Machine Set Up Worker (Dexcom G7 Balancing Machine Set Up Worker) device USE DIRECTED 07/16/2023 Active Continuous Blood Gluc Sensor (Dexcom G7 Sensor) misc (8 sources) Start: 08-18-2023 Continuous Blo od Gluc Sensor (Dexcom G7 Sensor) misc USE DIRECTED, CHANGE EVERY 10 DAYS 08/18/2023 Active CoQ-10 (15 sources) CoQ-10 Active CoQ-10 100 MG (6 sources) CoQ-10 100 MG as directed Orally ONCE A DAY Active Dexcom G6 Balancing Machine Set Up Worker - (20 sources) Start: 03-19-2021 Dexcom G6 [...] months Feb, Active Start: 03-19-2021 Dexcom G7 Balancing Machine Set Up Worker - (20 sources) Start: 07-02-2023 Dexcom G7 [...] once daily ergocalciferol (Vitamin D-2) 1.25 MG (72691 UT) capsule Take 1 capsule (50,000 Units) by mouth once daily. 08/29/2021 Active Start: 08-29-2021 take 1 tablet by nicola th two times weekly Vitamin D (Ergocalciferol) 1.25 MG (97188 UT) Oral Capsule Take 1 tablet twice weekly Quantity: 0 Refills: 0 Ordered: 14-Jan-2022 DO Start : 29-Aug-2021 Active Start: 06-15-2020 End: 03-01-2024 take 1 capsule by mouth every week Ergocalciferol (Vitamin D2) 1,250 mcg (50,000 unit) Capsule Discontinued 1250 MCG PO every week June 15, 2020 12:00am March 01, 2024 9:34am thursday take 1 capsule by mo ut every week Ergocalciferol 40576 UNIT 1 capsule Orally Q week Active take 1 capsule by mo uth every week Ergocalciferol 49206 UNIT 1 capsule Orally Q week Active [...] 24, 2022 11:00pm omega-3 acid ethyl esters (fci) 1000 mg oral capsule (20 sources) Start: 03-04-2023 take 1 capsule by mouth in the morning omega-3 acid ethyl esters (Lovaza) 1 g capsule Take 2 g by mouth in the morning and 2 g before bedtime. 03/04/2023 Active Start: 06-15-2019 End: 04-11-2025 [place]-3 Acid Ethyl Esters (L ovaza) 1 gram capsule Discontinued 2 CAP PO Twice daily 360 90 September 23, 2024 11:59am April 11, 2025 4:11pm Start: 12-25-2017 End: 01-03-2018 [place]-3 Acid Ethyl Esters (L ovaza) 1 gram [...] 2024 1:53pm As directed polyethylene glycol 3350 086115 mg / potassium chloride 2970 mg / sodium bicarbonate 6740 mg / sodium chloride 5860 mg / sodium sulfate 45026 mg powder for oral solution (2 sources) [...] Start: 05-08-2022 take 1 capsule by mo [facility] twice daily Co-Enzyme Q10 100 MG Oral [...] twice daily as needed for pain Hydrocodone-Acetaminophen (Thurmond) 5-325 mg tablet Discontinued 1 TAB PO Twice daily as needed for Pain June 19, 2020 12:00am July 27, 2020 8:14am Start: 01-17-2018 End: 06-15-2019 take 1-2 tablets by mouth every six hours as needed for pain Hydrocodone-Acetaminophen (Thurmond) 5-325 mg tablet Discontinued 2 TAB PO [...] 10:59am Start: 10-21-2023 take 1 capsule by [facility] every eight hours Benzonatate 200 MG 1 capsule Orally Three times a day Nov, Active Urxcplxrex-Vmsstluc-Guvrpjek ol (5 sources) Corticosteroid, beta2-Adrenergic Agonist Start: 12-09-2024 End: 01-09-2025 Ctjyhvgjri-Nwgfafzb-Cgqoprho ol (Breztri Aerosphere) 160-9-4.8 mcg/actuation HFA aerosol inhaler Discontinued 2 INH INHALATION Twice daily 5.December 09, 2024 1:00am January 09, 2025 10:59am SAMPLE PROVIDED Xzytjgghnk-Fpzcsuyn-Xoiojude ol (Breztri Aerosphere) 160-9-4.8 mcg/actuation HFA aerosol inhaler (11 sources) Start: 12-09-2024 End: 01-09-2025 Ymchexmbfe-Lntgxncz-Zeeuarkk ol (Breztri Aerosphere) 160-9-4.8 mcg/actuation HFA aerosol inhaler Discontinued 2 INH INHALATION Twice daily 5.9 December 09, 2024 1:00am January 09, 2025 10:59am SAMPLE PROVIDED Start: 12-09-2024 End: 01-09-2025 Vepsrfqbgi-Gkymbusd-Yehhyise ol (Breztri Aerosphere) 160-9-4.8 mcg/actuation HFA aerosol [...] Start: 03-11-2019 take 2 tablets by mo [facility] every twenty-four hours Olmesartan Medoxomil 40 MG [...] [Coronary atherosclerosis of unspecified type of vessel, [place] or graft] Onset: 2 Resolved: 2 Chronic [...] sources) Long-term current use of insulin; Translations: [skilled nursing (current) use of insulin] Onset: 3 01-13-2024 Episodic Other aftercare (20 sources) Drug therapy finding; Translations: [Other prison (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 therapy] 02-17-2018 Episodic Other aftercare (5 sources) Taking high risk medication; Translations: [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; Translations: [SKILLED NURSING CURRENT USE OF ASPIRIN] Onset: 01-06-2023 Episodic Other aftercare (1 source) skilled nursing (current) use of anticoagulants; Translations: [SPONGE PRESS OPERATOR CURRNT USE ANTICOAGULANTS] Onset: 12-25-2022 Episodic Other [...] Basophils (Bld) [#/Vol] 0.0 10 3/uL 0.0-0.1 [facility] Basophils/100 WBC Auto (Bld) Ordered By: Karla Lyons on 06-30-2025 Basophils/100 WBC (Bld) 0.1 % Low 0.2-2.0 [facility] Eosinophils/100 WBC Auto (Bl d)Ordered By: Karla Lyons on 06-30-2025 Eosinophils/100 WBC (Bld) 0.0 % Low 0.9-7.0 [facility] Erythrocyte distribution wid th Auto (RBC) [Ratio]Ordered By: Karla Lyons on 06-30-2025 Erythrocyte distribution width (RBC) [Ratio] 12.2 % 11.0-15.0 [facility] Globulin Calc (S) [Mass/Vol] Ordered By: Karla Lyons on 06-30-2025 Globulin (S) [Mass/Vol] 4.1 g/dL [facility] Glomerular filtration rate ( GFR) estimation in non- AmericanOrdered By: Karla Lyons on 06-30-2025 GFR/1.73 sq M.predicted among non-blacks MDRD (S/P/Bld) [Vol rate/Area] 34 mL/min/{1.73_m2} Low >=60 mL/min/1.73 m 2 [facility] Hematocrit Auto (Bld) [Volum e fraction]Ordered By: Karla Lyons on 06-30-2025 Hematocrit (Bld) [Volume fraction] 30.3 % Low 36.0-48.0 [facility] Hemoglobin [Mass/volume] in BloodOrdered By: Karla Lyons on 06-30-2025 Hemoglobin (Bld) [Mass/Vol] 10.1 g/dL Low 12.0-16.0 [facility] Laboratory - Chemistry and C hemistry - challengeOrdered By: Karla Lyons on 06-30-2025 Albumin [Mass/Vol] 1.9 g/dL Low 3.4-5.0 [facility] ALP [Catalytic activity/Vol] 99 U/L 46-116 [facility] ALT [Catalytic activity/Vol] 23 U/L 14-59 [facility] AST [Catalytic activity/Vol] 14 U/L Low 15-37 [facility] Bilirubin [Mass/Vol] 0.3 mg/dL 0.2-1.0 [facility] Calcium [Mass/Vol] 8.6 mg/dL 8.5-10.1 [facility] Chloride [Moles/Vol] 106 mmol/L 98-107 [facility] CO2 [Moles/Vol] 23.0 mmol/L 21.0-32.0 [facility] Creatinine [Mass/Vol] 1.54 mg/dL High 0.55-1.02 [facility] GFR/1.73 sq M.predicted MDRD (S/P/Bld) [Vol rate/Area] 41 mL/min/{1.73_m2} Low >=60 mL/min/1.73 m 2 [facility] Glucose [Mass/Vol] 253 mg/dL High 74-106 [facility] Magnesium [Mass/Vol] 1.7 mg/dL Low 1.8-2.4 [facility] Potassium [Moles/Vol] 5.0 mmol/L 3.5-5.1 [facility] Protein [Mass/Vol] 6.0 g/dL Low 6.4-8.2 [facility] Sodium [Moles/Vol] 138 mmol/L 136-145 [facility] Urea nitrogen [Mass/Vol] 56.0 mg/dL High 7.0-18.0 [facility] Urea nitrogen/Creatinine [Mass ratio] 36.4 mg/mg [facility] Laboratory - Hematology and Cell countsOrdered By: Karla Lyons on 06-30-2025 ESR (Bld) [Velocity] 106 mm/h High <=30 [facility] Immature granulocytes/100 WBC (Bld) 0.8 % High 0.0-0.5 [facility] Leukocytes [#/volume] correc praneeth for nucleated erythrocytes in Blood by Automated counOrdered By: Karla Lyons on 06-30-2025 WBC corrected for nucl RBC Auto (Bld) [#/Vol] 11.8 10 3/uL High 4.0-11.0 [facility] Lymphocytes Auto (Bld) [#/Vo l]Ordered By: Karla Lyons on 06-30-2025 Lymphocytes (Bld) [#/Vol] 0.8 10 3/uL Low 1.2-3.8 [facility] Lymphocytes/100 WBC Auto (Bl d)Ordered By: Karla Lyons on 06-30-2025 Lymphocytes/100 WBC (Bld) 7.0 % Low 20.5-60.0 [facility] MCH Auto (RBC) [Entitic mass ]Ordered By: Karla Lyons on 06-30-2025 MCH (RBC) [Entitic mass] 29.3 pg 26.7-34.0 [facility] MCHC Auto (RBC) [Mass/Vol]Or dered By: Karla Lyons on 06-30-2025 MCHC (RBC) [Mass/Vol] 33.3 g/dL 29.9-35.2 [facility] MCV Auto (RBC) [Entitic vol] Ordered By: Karla Lyons on 06-30-2025 MCV (RBC) [Entitic vol] 87.8 fL 81.0-99.0 [facility] Monocytes Auto (Bld) [#/Vol] Ordered By: Karla Lyons on 06-30-2025 Monocytes (Bld) [#/Vol] 0.5 10 3/uL 0.3-0.8 [facility] Monocytes/100 WBC Auto (Bld) Ordered By: Karla Lyons on 06-30-2025 Monocytes/100 WBC (Bld) 3.9 % 1.7-12.0 [facility] Neutrophils Auto (Bld) [#/Vo l]Ordered By: Karla Lyons on 06-30-2025 Neutrophils (Bld) [#/Vol] 10.4 10 3/uL High 1.4-6.5 [facility] Neutrophils/100 WBC Auto (Bl d)Ordered By: Karla Lyons on 06-30-2025 Neutrophils/100 WBC (Bld) 88.2 % High 43.0-75.0 [facility] No Panel InformationOrdered By: Gustavo Cuevas on 06-30-2025 Anaerobe Identification Only [facility] No Panel InformationOrdered By: Karla Lyons on 06-30-2025 C-Reactive Protein, Quantitative 17.95 mg/dL High <=0.50 [facility] Eosinophils # (Auto) 0.0 10 3/uL 0.0-0.7 [facility] Immature Granulocyte # (Auto) 0.09 10 3/uL High 0.00-0.03 [facility] Platelet mean volume Auto (B ld) [Entitic vol]Ordered By: Karla Lyons on 06-30-2025 Platelet mean volume (Bld) [Entitic vol] 11.5 fL 9.5-13.5 [facility] Platelets Auto (Bld) [#/Vol] Ordered By: Karla Lyons on 06-30-2025 Platelets (Bld) [#/Vol] 184 10 3/uL 150-450 [facility] RBC Auto (Bld) [#/Vol]Ordere d By: Karla Lyons on 06-30-2025 RBC (Bld) [#/Vol] 3.45 10 6/uL Low 4.20-5.40 [facility] Serum or plasma albumin/glob ulin mass ratioOrdered By: Karla Lyons on 06-30-2025 Albumin/Globulin [Mass ratio] 0.5 {ratio} [facility] Serum or plasma anion gap de terminationOrdered By: Karla Lyons on 06-30-2025 Anion gap [Moles/Vol] 14.0 mmol/L [facility] Basophils Auto (Bld) [#/Vol] Ordered By: Karla Lyons on 06-29-2025 Basophils (Bld) [#/Vol] 0.0 10 3/uL 0.0-0.1 [facility] Basophils/100 WBC Auto (Bld) Ordered By: Karla Lyons on 06-29-2025 Basophils/100 WBC (Bld) 0.1 % Low 0.2-2.0 [facility] Eosinophils/100 WBC Auto (Bl d)Ordered By: Karla Lyons on 06-29-2025 Eosinophils/100 WBC (Bld) 0.1 % Low 0.9-7.0 [facility] Erythrocyte distribution wid th Auto (RBC) [Ratio]Ordered By: Karla Lyons on 06-29-2025 Erythrocyte distribution width (RBC) [Ratio] 12.3 % 11.0-15.0 [facility] Globulin Calc (S) [Mass/Vol] Ordered By: Karla Lyons on 06-29-2025 Globulin (S) [Mass/Vol] 4.3 g/dL [facility] Glomerular filtration rate ( GFR) estimation in non- AmericanOrdered By: Karla Lyons on 06-29-2025 GFR/1.73 sq M.predicted among non-blacks MDRD (S/P/Bld) [Vol rate/Area] 31 mL/min/{1.73_m2} Low >=60 mL/min/1.73 m 2 [facility] Hematocrit Auto (Bld) [Volum e fraction]Ordered By: Karla Lyons on 06-29-2025 Hematocrit (Bld) [Volume fraction] 31.1 % Low 36.0-48.0 [facility] Hemoglobin [Mass/volume] in BloodOrdered By: Karla Lyons on 06-29-2025 Hemoglobin (Bld) [Mass/Vol] 10.6 g/dL Low 12.0-16.0 [facility] Laboratory - Chemistry and C hemistry - challengeOrdered By: Karla Lyons on 06-29-2025 Albumin [Mass/Vol] 2.1 g/dL Low 3.4-5.0 [facility] ALP [Catalytic activity/Vol] 88 U/L 46-116 [facility] ALT [Catalytic activity/Vol] 17 U/L 14-59 [facility] AST [Catalytic activity/Vol] 14 U/L Low 15-37 [facility] Bilirubin [Mass/Vol] 0.5 mg/dL 0.2-1.0 [facility] Calcium [Mass/Vol] 8.9 mg/dL 8.5-10.1 [facility] Chloride [Moles/Vol] 104 mmol/L 98-107 [facility] CO2 [Moles/Vol] 21.2 mmol/L 21.0-32.0 [facility] Creatinine [Mass/Vol] 1.68 mg/dL High 0.55-1.02 [facility] GFR/1.73 sq M.predicted MDRD (S/P/Bld) [Vol rate/Area] 37 mL/min/{1.73_m2} Low >=60 mL/min/1.73 m 2 [facility] Glucose [Mass/Vol] 201 mg/dL High 74-106 [facility] Potassium [Moles/Vol] 5.1 mmol/L 3.5-5.1 [facility] Protein [Mass/Vol] 6.4 g/dL 6.4-8.2 [facility] Sodium [Moles/Vol] 137 mmol/L 136-145 [facility] Urea nitrogen [Mass/Vol] 62.0 mg/dL High 7.0-18.0 [facility] Urea nitrogen/Creatinine [Mass ratio] 36.9 mg/mg [facility] Laboratory - Chemistry and C hemistry - challengeOrdered By: Elpidio Whipple on 06-29-2025 Magnesium [Mass/Vol] 1.9 mg/dL 1.8-2.4 [facility] Laboratory - Hematology and Cell countsOrdered By: Karla Lyons on 06-29-2025 Immature granulocytes/100 WBC (Bld) 0.3 % 0.0-0.5 [facility] Leukocytes [#/volume] correc praneeth for nucleated erythrocytes in Blood by Automated counOrdered By: Karla Lyons on 06-29-2025 WBC corrected for nucl RBC Auto (Bld) [#/Vol] 14.5 10 3/uL High 4.0-11.0 [facility] Lymphocytes Auto (Bld) [#/Vo l]Ordered By: Karla Lyons on 06-29-2025 Lymphocytes (Bld) [#/Vol] 0.7 10 3/uL Low 1.2-3.8 [facility] Lymphocytes/100 WBC Auto (Bl d)Ordered By: Karla Lyons on 06-29-2025 Lymphocytes/100 WBC (Bld) 4.9 % Low 20.5-60.0 [facility] MCH Auto (RBC) [Entitic mass ]Ordered By: Karla Lyons on 06-29-2025 MCH (RBC) [Entitic mass] 30.1 pg 26.7-34.0 [facility] MCHC Auto (RBC) [Mass/Vol]Or dered By: Karla Lyons on 06-29-2025 MCHC (RBC) [Mass/Vol] 34.1 g/dL 29.9-35.2 [facility] MCV Auto (RBC) [Entitic vol] Ordered By: Karla Lyons on 06-29-2025 MCV (RBC) [Entitic vol] 88.4 fL 81.0-99.0 [facility] Monocytes Auto (Bld) [#/Vol] Ordered By: Karla Lyons on 06-29-2025 Monocytes (Bld) [#/Vol] 0.7 10 3/uL 0.3-0.8 [facility] Monocytes/100 WBC Auto (Bld) Ordered By: Karla Lyons on 06-29-2025 Monocytes/100 WBC (Bld) 4.8 % 1.7-12.0 [facility] Neutrophils Auto (Bld) [#/Vo l]Ordered By: aKrla Lyons on 06-29-2025 Neutrophils (Bld) [#/Vol] 13.0 10 3/uL High 1.4-6.5 [facility] Neutrophils/100 WBC Auto (Bl d)Ordered By: Karla Lyons on 06-29-2025 Neutrophils/100 WBC (Bld) 89.8 % High 43.0-75.0 [facility] No Panel InformationOrdered By: Karla Lyons on 06-29-2025 Eosinophils # (Auto) 0.0 10 3/uL 0.0-0.7 [facility] Immature Granulocyte # (Auto) 0.05 10 3/uL High 0.00-0.03 [facility] Platelet mean volume Auto (B ld) [Entitic vol]Ordered By: Karla Lyons on 06-29-2025 Platelet mean volume (Bld) [Entitic vol] 11.4 fL 9.5-13.5 [facility] Platelets Auto (Bld) [#/Vol] Ordered By: Karla Lyons on 06-29-2025 Platelets (Bld) [#/Vol] 178 10 3/uL 150-450 [facility] RBC Auto (Bld) [#/Vol]Ordere d By: Karla Lyons on 06-29-2025 RBC (Bld) [#/Vol] 3.52 10 6/uL Low 4.20-5.40 [facility] Serum or plasma albumin/glob ulin mass ratioOrdered By: Karla Lyons on 06-29-2025 Albumin/Globulin [Mass ratio] 0.5 {ratio} [facility] Serum or plasma anion gap de terminationOrdered By: Karla Lyons on 06-29-2025 Anion gap [Moles/Vol] 16.9 mmol/L [facility] Basophils Auto (Bld) [#/Vol] Ordered By: Charan Casey on 06-28-2025 Basophils (Bld) [#/Vol] 0.0 10 3/uL 0.0-0.1 [facility] Basophils/100 WBC Auto (Bld) Ordered By: Charan Casey on 06-28-2025 Basophils/100 WBC (Bld) 0.1 % Low 0.2-2.0 [facility] Eosinophils/100 WBC Auto (Bl d)Ordered By: Charan Casey on 06-28-2025 Eosinophils/100 WBC (Bld) 0.1 % Low 0.9-7.0 [facility] Erythrocyte distribution wid th Auto (RBC) [Ratio]Ordered By: Charan Casey on 06-28-2025 Erythrocyte distribution width (RBC) [Ratio] 12.1 % 11.0-15.0 [facility] Globulin Calc (S) [Mass/Vol] Ordered By: Gustavo Cuevas on 06-28-2025 Globulin (S) [Mass/Vol] 4.6 g/dL [facility] Glomerular filtration rate ( GFR) estimation in non- AmericanOrdered By: Gustavo Cuevas on 06-28-2025 GFR/1.73 sq M.predicted among non-blacks MDRD (S/P/Bld) [Vol rate/Area] 19 mL/min/{1.73_m2} Low >=60 mL/min/1.73 m 2 [facility] Hematocrit Auto (Bld) [Volum e fraction]Ordered By: Charan Casey on 06-28-2025 Hematocrit (Bld) [Volume fraction] 33.7 % Low 36.0-48.0 [facility] Hemoglobin [Mass/volume] in BloodOrdered By: Charan Casey on 06-28-2025 Hemoglobin (Bld) [Mass/Vol] 11.7 g/dL Low 12.0-16.0 [facility] INR in Platelet poor plasma by Coagulation assayOrdered By: Gustavo Cuevas on 06-28-2025 INR Coag (PPP) [Relative time] 1.02 {INR} [facility] Comment on above: DESIRED INR:2.0-3.0 CONDITIONS NOT LISTED BELOW2.5-3.5 FOR PROSTHETIC HEART VALVE REPLACEMENT2.5-3.5 RECURRENT THROMBOSIS Laboratory - Chemistry and C hemistry - challengeOrdered By: Gustavo Cuevas on 06-28-2025 Albumin [Mass/Vol] 2.7 g/dL Low 3.4-5.0 [facility] ALP [Catalytic activity/Vol] 90 U/L 46-116 [facility] ALT [Catalytic activity/Vol] 23 U/L 14-59 [facility] AST [Catalytic activity/Vol] 25 U/L 15-37 [facility] Bilirubin [Mass/Vol] 0.6 mg/dL 0.2-1.0 [facility] Calcium [Mass/Vol] 9.3 mg/dL 8.5-10.1 [facility] Chloride [Moles/Vol] 99 mmol/L 98-107 [facility] CO2 [Moles/Vol] 22.3 mmol/L 21.0-32.0 [facility] Creatinine [Mass/Vol] 2.58 mg/dL High 0.55-1.02 [facility] GFR/1.73 sq M.predicted MDRD (S/P/Bld) [Vol rate/Area] 23 mL/min/{1.73_m2} Low >=60 mL/min/1.73 m 2 [facility] Glucose [Mass/Vol] 81 mg/dL 74-106 [facility] Lactate [Moles/Vol] 1.3 mmol/L 0.4-2.0 [facility] Potassium [Moles/Vol] 4.9 mmol/L 3.5-5.1 [facility] Protein [Mass/Vol] 7.3 g/dL 6.4-8.2 [facility] Sodium [Moles/Vol] 136 mmol/L 136-145 [facility] Urea nitrogen [Mass/Vol] 72.0 mg/dL High 7.0-18.0 [facility] Urea nitrogen/Creatinine [Mass ratio] 27.9 mg/mg [facility] Laboratory - Hematology and Cell countsOrdered By: Charan Casey on 06-28-2025 ESR (Bld) [Velocity] 104 mm/h High <=30 [facility] Immature granulocytes/100 WBC (Bld) 0.5 % 0.0-0.5 [facility] Leukocytes [#/volume] correc praneeth for nucleated erythrocytes in Blood by Automated counOrdered By: Charan Casey on 06-28-2025 WBC corrected for nucl RBC Auto (Bld) [#/Vol] 17.3 10 3/uL High 4.0-11.0 [facility] Lymphocytes Auto (Bld) [#/Vo l]Ordered By: Charan Casey on 06-28-2025 Lymphocytes (Bld) [#/Vol] 0.7 10 3/uL Low 1.2-3.8 [facility] Lymphocytes/100 WBC Auto (Bl d)Ordered By: Charan Casey on 06-28-2025 Lymphocytes/100 WBC (Bld) 4.0 % Low 20.5-60.0 [facility] MCH Auto (RBC) [Entitic mass ]Ordered By: Charan Casey on 06-28-2025 MCH (RBC) [Entitic mass] 30.4 pg 26.7-34.0 [facility] MCHC Auto (RBC) [Mass/Vol]Or dered By: Charan Casey on 06-28-2025 MCHC (RBC) [Mass/Vol] 34.7 g/dL 29.9-35.2 [facility] MCV Auto (RBC) [Entitic vol] Ordered By: Charan Casey on 06-28-2025 MCV (RBC) [Entitic vol] 87.5 fL 81.0-99.0 [facility] [facility] Monocytes Auto (Bld) [#/Vol] Ordered By: Charan Casey on 06-28-2025 Monocytes (Bld) [#/Vol] 0.7 10 3/uL 0.3-0.8 [facility] Monocytes/100 WBC Auto (Bld) Ordered By: Charan Casey on 06-28-2025 Monocytes/100 WBC (Bld) 4.0 % 1.7-12.0 F [facility] Neutrophils Auto (Bld) [#/Vo l]Ordered By: Charan Casey on 06-28-2025 Neutrophils (Bld) [#/Vol] 15.8 10 3/uL High 1.4-6.5 [facility] Neutrophils/100 WBC Auto (Bl d)Ordered By: Charan Casey on 06-28-2025 Neutrophils/100 WBC (Bld) 91.3 % High 43.0-75.0 [facility] No Panel InformationOrdered By: Charan Casey on 06-28-2025 C-Reactive Protein, Quantitative 29.00 mg/dL High <=0.50 [facility] Eosinophils # (Auto) 0.0 10 3/uL 0.0-0.7 [facility] Immature Granulocyte # (Auto) 0.09 10 3/uL High 0.00-0.03 [facility] No Panel InformationOrdered By: Gustavo Cuevas on 06-28-2025 Venous Blood Partial Pressure CO2 41.7 mm[Hg] 40.0-52.0 [facility] Venous Blood pH 7.354 7.330-7.430 [facility] Platelet mean volume Auto (B ld) [Entitic vol]Ordered By: Charan Casey on 06-28-2025 Platelet mean volume (Bld) [Entitic vol] 11.8 fL 9.5-13.5 [facility] Platelets Auto (Bld) [#/Vol] Ordered By: Charan aCsey on 06-28-2025 Platelets (Bld) [#/Vol] 178 10 3/uL 150-450 [facility] Prothrombin time (PT)Ordered By: Gustavo Cuevas on 06-28-2025 PT Coag (PPP) [Time] 10.8 s 9.0-11.6 [facility] RBC Auto (Bld) [#/Vol]Ordere d By: Charan Casey on 06-28-2025 RBC (Bld) [#/Vol] 3.85 10 6/uL Low 4.20-5.40 [facility] Serum or plasma albumin/glob ulin mass ratioOrdered By: Gustavo Cuevas on 06-28-2025 Albumin/Globulin [Mass ratio] 0.6 {ratio} [facility] Serum or plasma anion gap de terminationOrdered By: Gustavo Cuevas on 06-28-2025 Anion gap [Moles/Vol] 19.6 mmol/L [facility] X-ray reportOrdered By: Brian Mays on 06-05-2025 Study report [facility] Main [address] [address] XRay Report Signed Patient: Rita Cobb MR#: [id number] : 1960 Acct:[id number] Age/Sex: 64 / F ADM Date: 5 [facility] Room: Type: REG CLI Attending [...] Mays M.D. 06/05/2025 5:41 PM Dictation Location: [place] [address] Transcribed By: [facility] 06/05/251740 Dictated By: Néstor Mays MD 06/05/251734 Signed By: 06/05/25 174 [facility] Work Phone: XR foot BI 3Von 06-05-2025 XR foot BI 3V [facility] [place] [place] [address] XRay Report Signed Patient: Rita Cobb MR#: [id number] : 1960 Acct:[id number] Age/Sex: 64 / F ADM Date: 06/05/25 Loc: [facility] Room: Type: REG CLI Attending [...] Mays M.D. 06/05/2025 5:41 PM Dictation Location: [place] [address] Transcribed By: [facility] 06/05/25 174 Dictated By: Néstor Mays MD 06/05/25 173 Signed By: 06/05/25 174 Normal [facility] HbA1c (Bld) [Mass fraction]o n 05-15-2025 Interpretation and review of laboratory results Abnormal [facility] - Hematology and Cell countson 05-15-2025 HbA1c (Bld) [Mass fraction] 8.1 % [facility] RT wo con [facility] [place] [place] [address] MRI Report Signed Patient: Rita Cobb MR#: [id number] : 1960 Acct:[id number] Age/Sex: 64 / F ADM Date: 01/23/25 Loc: [facility] Room: Type: [facility] Attending Dr: Nader Curry DO Copies to: [...] Timothy Levi M.D.01/26/2025 9:38 AM Dictation Location: [facility]24 Transcribed By: FRANKY 01/26/25937 Dictated By: Timothy Levi II, MD 01/26/25901 Signed By: 01/26/25937 Normal [facility] Influenza virus B Ag [Presen ce] in Upper respiratory specimen by Rapid immunoassayon 12-09-2024 FLUBV Ag IA.rapid Ql (Nph) Influenza virus B Ag [Presence] in Upper respiratory specimen by Rapid immunoassay [facility] No Panel Informationon 12-09 Influenza Type A (Rapid) Negative [facility] POC SARS CoV-2 Antigen Negative [facility] No Panel InformationOrdered By: Charan Casey on 12-09-2024 RSV (POC) [facility] RSV (POC) [facility] X-ray reportOrdered By: Brian Mays on 12-08-2024 Study report [facility] [place] [address] XRay Report Signed Patient: Rita Cobb MR#: [id number] : 1960 Acct:[id number] Age/Sex: 64 / F ADM Date: 5 Loc: [facility] Room: Type: [facility] Attending Dr: Charan Casey DO Copies to: [...] MD 12/08/24 1524 Signed By: 12/08/24 1559 [facility] Work Phone: XR chest 2V*on 12-08-2024 XR chest 2V* [facility] Main [facility] [address] [place] [id number] XRay Report Signed Patient: Rita Cobb MR#: [id number] : 1960 Acct:[id number] Age/Sex: 64 / F ADM Date: 12/08/24 [...] 1524 Signed By: 12/08/24 1559 Normal [facility] XR shoulder RT min 2V*on XR shoulder RT min 2V* [facility] [address] [place] [address] XRay Report Signed Patient: Rita Cobb MR#: [id number] : 1960 Acct:[id number] Age/Sex: 63 / F ADM Date: 10/25/24 [...] Ibis Crisostomo M.D.10/25/2024 9:11 AM Dictation Location: [place] [address] Transcribed By: [facility] 10/25/24 0911 Dictated By: Ibis Crisostomo MD 10/25/24 0908 Signed By: 10/25/24 0911 Normal [facility] HbA1c (Bld) [Mass fraction]o n 10-17-2024 Interpretation and review of laboratory results Normal [facility] - Hematology and Cell countson 10-17-2024 HbA1c (Bld) [Mass fraction] 7.6 % [facility] MM screening mammo BI w/CADo n 09-07-2024 MM screening mammo BI w/CAD [facility] [place] [place] [address] Mammography Report Signed Patient: Rita Cobb MR#: [id number] : 1960 Acct:[id number] Age/Sex: 63 / F ADM Date: 09/07/24 Loc: [place] Room: Type: REG CLI Attending Dr: Referral [...] Brown Jr., D.O.09/07/2024 9:04 AM Dictation Location: [facility] Transcribed By: [facility] 09/07/24903 Dictated By: Sudhir Brown Jr, DO 09/07/24899 Signed By: 09/07/24903 Normal [facility] Albumin [Mass/volume] in Ser um or Plasma by Bromocresol green (BCG) dye binding methoOrdered By: Elpidio Whipple on 02-29-2024 Albumin BCG dye [Mass/Vol] 4.3 g/dL 3.5-5.7 [facility] Automated erythrocytes count in urine sediment (number/area)Ordered By: Elpidio Whipple on 02-29-2024 RBC Auto (Urine sed) [#/Area] 1-2 [HPF] 0-4 [facility] Automated leukocytes count i n urine sediment (number/area)Ordered By: Elpidio Whipple on 02-29-2024 WBC Auto (Urine sed) [#/Area] 5-9 [HPF] 0-4 [facility] Bilirubin Test strip Ql (U)O rdered By: Elpidio Whipple on 02-29-2024 Bilirubin Ql (U) Negative Negative [facility] Calcium [Mass/volume] in Ser um or PlasmaOrdered By: Elpidio Whipple on 02-29-2024 Calcium [Mass/Vol] 9.8 mg/dL 8.6-10.3 [facility] Carbon dioxide, total [Moles /volume] in Serum or PlasmaOrdered By: Elpidio Whipple on 02-29-2024 CO2 [Moles/Vol] 30.4 mmol/L 21.0-31.0 [facility] Chloride [Moles/volume] in S john or PlasmaOrdered By: Elpidio Whipple on 02-29-2024 Chloride [Moles/Vol] 103 mmol/L 98-107 [facility] Color Auto (U)Ordered By: Ab rahul Whipple on 02-29-2024 Color (U) Dark yellow Yellow [facility] Creatinine [Mass/volume] in Serum or PlasmaOrdered By: Elpidio Whipple on 02-29-2024 Creatinine [Mass/Vol] 1.19 mg/dL 0.60-1.20 [facility] Creatinine [Mass/volume] in UrineOrdered By: Elpidio Whipple on 02-29-2024 Creatinine (U) [Mass/Vol] 101.0 mg/dL [facility] Comment on above: No reference range e stablished Erythrocyte distribution wid th Auto (RBC) [Ratio]Ordered By: Elpidio Whipple on 02-29-2024 Erythrocyte distribution width (RBC) [Ratio] 12.9 % 11.9-15.3 [facility] Glucose [Mass/volume] in Ser um or PlasmaOrdered By: Elpidio Whipple on 02-29-2024 Glucose [Mass/Vol] 164 mg/dL 70-100 [facility] Comment on above: ADA recommended refe rence rangeRandom Glucose Reference Range is dependent on time and content of last meal. Glucose of more than 200 mg/dL in a nonstressed, ambulatory subject supports the diagnosis of Diabetes Mellitus. Hematocrit Auto (Bld) [Volum e fraction]Ordered By: Elpidio Whipple on 02-29-2024 Hematocrit (Bld) [Volume fraction] 39.7 % 34.0-46.4 [facility] Hemoglobin [Mass/volume] in BloodOrdered By: Elpidio Whipple on 02-29-2024 Hemoglobin (Bld) [Mass/Vol] 13.4 g/dL 11.8-15.4 [facility] Ketones Auto test strip (U) [Mass/Vol]Ordered By: Elpidio Whipple on 02-29-2024 Ketones (U) [Mass/Vol] Negative Negative [facility] Laboratory - UrinalysisOrder ed By: Elpidio Whipple on 02-29-2024 Hyaline casts LM Ql (Urine sed) 0-8 [LPF] 0-8 [facility] Leukocytes [#/volume] correc praneeth for nucleated erythrocytes in Blood by Automated counOrdered By: Elpidio Whipple on 02-29-2024 WBC corrected for nucl RBC Auto (Bld) [#/Vol] 4.5 10*3/uL 3.8-11.6 [facility] MCH Auto (RBC) [Entitic mass ]Ordered By: Elpidio Whipple on 02-29-2024 MCH (RBC) [Entitic mass] 29.1 pg 24.7-34.3 [facility] MCHC Auto (RBC) [Mass/Vol]Or dered By: Elpidio Whipple on 02-29-2024 MCHC (RBC) [Mass/Vol] 33.8 g/dL 32.0-35.0 [facility] MCV Auto (RBC) [Entitic vol] Ordered By: Elpidio Whipple on 02-29-2024 MCV (RBC) [Entitic vol] 86.2 fL 80-100 F [facility] Magnesium [Mass/volume] in S john or PlasmaOrdered By: Elpidio Whipple on 02-29-2024 Magnesium [Mass/Vol] 1.6 mg/dL 1.9-2.7 [facility] Nitrite Test strip Ql (U)Ord ered By: Elpidio Whipple on 02-29-2024 Nitrite Ql (U) Negative Negative [facility] No Panel InformationOrdered By: Elpidio Whipple on 02-29-2024 Estimated GFR (CKD-EPI) 51.377 mL/Min [facility] Creatinine Clearance (Chem N/A [facility] Parathyrin.intact [Mass/volu me] in Serum or PlasmaOrdered By: Elpidio Whipple on 02-29-2024 Parathyrin.intact [Mass/Vol] 53.1 pg/mL 12-88 [facility] Phosphate [Mass/volume] in S john or PlasmaOrdered By: Elpidio Whipple on 02-29-2024 Phosphate [Mass/Vol] 2.8 mg/dL 2.5-4.5 [facility] Platelet mean volume Auto (B ld) [Entitic vol]Ordered By: Elpidio Whipple on 02-29-2024 Platelet mean volume (Bld) [Entitic vol] 9.5 fL 6.3-10.7 [facility] Platelets Auto (Bld) [#/Vol] Ordered By: Elpidio Whipple on 02-29-2024 Platelets (Bld) [#/Vol] 174 10*3/uL 150-450 [facility] Potassium [Moles/volume] in Serum or PlasmaOrdered By: Elpidio Whipple on 02-29-2024 Potassium [Moles/Vol] 4.6 mmol/L 3.5-5.1 [facility] Protein Auto test strip (U) [Mass/Vol]Ordered By: Elpidio Whipple on 02-29-2024 Protein (U) [Mass/Vol] 30 mg/dL Negative [facility] Protein [Mass/volume] in Uri neOrdered By: Elpidio Whipple on 02-29-2024 Protein (U) [Mass/Vol] 43 mg/dL 0-[address] [facility] RBC Auto (Bld) [#/Vol]Ordere d By: Elpidio Whipple on 02-29-2024 RBC (Bld) [#/Vol] 4.61 10*6/uL 3.60-5.00 [facility] Serum or plasma anion gap de terminationOrdered By: Elpidio Whipple on 02-29-2024 Anion gap [Moles/Vol] 11.2 mmol/L 6.0-15.[address] [facility] Sodium [Moles/volume] in Ser um or PlasmaOrdered By: Elpidio Whipple on 02-29-2024 Sodium [Moles/Vol] 140 mmol/L 136-145 [facility] Specific gravity Auto test s trip (U) [Rel density]Ordered By: Elpidio Whipple on 02-29-2024 Specific gravity (U) [Rel density] 1.019 1.001-1.030 [facility] Squamous epithelial cells de tection in urine sediment by light microscopyOrdered By: Elpidio Whipple on 02-29-2024 Epithelial cells.squamous LM Ql (Urine sed) 10-19 [HPF] 0-2 [facility] Urate [Mass/volume] in Serum or PlasmaOrdered By: Elpidio Whipple on 02-29-2024 Urate [Mass/Vol] 7.1 mg/dL 2.3-6.6 [facility] Urea nitrogen [Mass/volume] in Serum or PlasmaOrdered By: Elpidio Whipple on 02-29-2024 Urea nitrogen [Mass/Vol] 29 mg/dL 7-25 [facility] Urine bacteria detection by automated methodOrdered By: Elpidio Whipple on 02-29-2024 Bacteria Auto Ql (U) None seen None Seen [facility] Urine clarity by refractomet ry automatedOrdered By: Elpidio Whipple on 02-29-2024 Clarity Refractometry automated (U) Clear Clear [facility] Urine culture routineOrdered By: Elpidio Whipple on 02-29-2024 Bacteria identified Cx Nom (U) 2 Days [facility] Urine glucose measurement by automated test strip (mass/volume)Ordered By: Elpidio Whipple on 02-29-2024 Glucose Auto test strip (U) [Mass/Vol] Normal mg/dL Normal [facility] Urine hemoglobin detection b y automated test stripOrdered By: Elpidio Whipple on 02-29-2024 Hemoglobin Auto test strip Ql (U) Negative Negative [facility] Urine leukocyte esterase det ection by automated test stripOrdered By: Elpidio Whipple on 02-29-2024 Leukocyte esterase Auto test strip Ql (U) 2+ Negative [facility] Urine protein/creatinine rat ioOrdered By: Elpidio Whipple on 02-29-2024 Protein/Creatinine (U) [Ratio] 426 mg/g{Cre} 0-200 [facility] Urobilinogen Auto test strip (U) [Mass/Vol]Ordered By: Elpidio Whipple on 02-29-2024 Urobilinogen (U) [Mass/Vol] Normal mg/dL Normal [facility] Vitamin D+Metabolites [Mass/ volume] in Serum or PlasmaOrdered By: Elpidio Whipple on 02-29-2024 Vitamin D+Metabolites [Mass/Vol] 48.0 ng/mL 30-100 [facility] Comment on above: VITAMIN D STATUS 25( [place])VITAMIN D RANGE (ng/mL) Deficient <20 Insufficient 20 to <30Sufficient 30 to 100Reference: Nayeli MF,Hannah SCHREIBER, Jose GILBERT, et al. Evaluation,treatment, and prevention of vitamin D deficiency; an Endocrine Society clinical practice guideline. JCEM. 2010; 96(7):1911-30. pH Auto test strip (U)Ordere d By: Elpidio Whipple on 02-29-2024 pH (U) 5.5 [pH] 5.0-9.0 [facility] RSVon 12-30-2023 RSV Ag IA Ql (Unsp spec) Negative [employer] Other Alanine aminotransferase [En zymatic activity/volume] in Serum or PlasmaOrdered By: Charan Casey on 11-26-2023 ALT [Catalytic activity/Vol] 16 U/L 7-52 [facility] Albumin [Mass/volume] in Ser um or Plasma by Bromocresol green (BCG) dye binding methoOrdered By: Charan Casey on 11-26-2023 Albumin BCG dye [Mass/Vol] 4.2 g/dL 3.5-5.7 [facility] Alkaline phosphatase [Enzyma tic activity/volume] in Serum or PlasmaOrdered By: Charan Casey on 11-26-2023 ALP [Catalytic activity/Vol] 65 U/L 34-104 [facility] Aspartate aminotransferase [ Enzymatic activity/volume] in Serum or PlasmaOrdered By: Charan Casey on 11-26-2023 AST [Catalytic activity/Vol] 16 U/L 13-39 [facility] Bilirubin.total [Mass/volume ] in Serum or PlasmaOrdered By: Charan Casey on 11-26-2023 Bilirubin [Mass/Vol] 0.6 mg/dL 0.3-1.0 [facility] Calcium [Mass/volume] in Ser um or PlasmaOrdered By: Charan Casey on 11-26-2023 Calcium [Mass/Vol] 9.8 mg/dL 8.6-10.3 [facility] Carbon dioxide, total [Moles /volume] in Serum or PlasmaOrdered By: Charan Casey on 11-26-2023 CO2 [Moles/Vol] 34.6 mmol/L 21.0-31.0 [facility] Chloride [Moles/volume] in S john or PlasmaOrdered By: Charan Casey on 11-26-2023 Chloride [Moles/Vol] 101 mmol/L 98-107 [facility] Cholesterol [Mass/volume] in Serum or PlasmaOrdered By: Charan Casey on 11-26-2023 Cholesterol [Mass/Vol] 140 mg/dL 140-[address] [facility] Comment on above: Chol less than 200 m g/dl low riskChol 201-239 mg/dl borderline riskChol 240 mg/dl and greater high risk Cholesterol in LDL Calc [Mas s/Vol]Ordered By: Charan Casey on 11-26-2023 Cholesterol in LDL [Mass/Vol] 56 mg/dL 0-100 [facility] Comment on above: LDL ATP III CLASSIFI CATIONLDL less than 100 mg/dL OptimalLDL 100-129 mg/dL Near or above optimalLDL 130-159 mg/dL Borderline highLDL 160-189 mg/dL HighLDL greater than 189 mg/dL Very high Cholesterol in VLDL Calc [Ma ss/Vol]Ordered By: Charan Casey on 11-26-2023 Cholesterol in VLDL [Mass/Vol] 45 mg/dL [facility] Creatinine [Mass/volume] in Serum or PlasmaOrdered By: Charan Casey on 11-26-2023 Creatinine [Mass/Vol] 1.25 mg/dL 0.60-1.20 [facility] Globulin Calc (S) [Mass/Vol] Ordered By: Charan Casey on 11-26-2023 Globulin (S) [Mass/Vol] 2.6 g/dL [facility] Glucose [Mass/volume] in Ser um or PlasmaOrdered By: Charan Casey on 11-26-2023 Glucose [Mass/Vol] 122 mg/dL 70-100 [facility] Comment on above: ADA recommended refe rence rangeRandom Glucose Reference Range is dependent on time and content of last meal. Glucose of more than 200 mg/dL in a nonstressed, ambulatory subject supports the diagnosis of Diabetes Mellitus. No Panel InformationOrdered By: Charan Casey on 11-26-2023 Estimated GFR (CKD-EPI) 48.432 mL/Min [facility] Creatinine Clearance (Chem N/A [facility] Potassium [Moles/volume] in Serum or PlasmaOrdered By: Charan Casey on 11-26-2023 Potassium [Moles/Vol] 4.6 mmol/L 3.5-5.1 [facility] Protein [Mass/volume] in Ser um or PlasmaOrdered By: Charan Casey on 11-26-2023 Protein [Mass/Vol] 6.8 g/dL 6.4-8.9 [facility] Serum or plasma albumin/glob ulin mass ratioOrdered By: Charan Casey on 11-26-2023 Albumin/Globulin [Mass ratio] 1.6 {ratio} [facility] Serum or plasma anion gap de terminationOrdered By: Charan Casey on 11-26-2023 Anion gap [Moles/Vol] 9.0 mmol/L 6.0-15.0 [facility] Serum or plasma high density lipoprotein (HDL) cholesterol measurementOrdered By: Charan Casey on 11-26-2023 Cholesterol in HDL [Mass/Vol] 39 mg/dL 23-92 [facility] Comment on above: HDL CHOL ATP-III CLA SSIFICATION Cardiovascular RiskHDL > or equal to 60 mg/dL LOWHDL < 40 mg/dL HIGH Serum or plasma total choles terol/high density lipoprotein (HDL) cholesterol mass ratOrdered By: Charan Casey on 11-26-2023 Cholesterol.total/Mary sterol in HDL [Mass ratio] 3.6 {ratio} <5.0 [facility] Sodium [Moles/volume] in Ser um or PlasmaOrdered By: Charan Casey on 11-26-2023 Sodium [Moles/Vol] 140 mmol/L 136-145 [facility] Triglyceride [Mass/volume] i n Serum or PlasmaOrdered By: Charan Casey on 11-26-2023 Triglyceride [Mass/Vol] 227 mg/dL 0-149 [facility] Comment on above: TRIG ATP III CLASSIF ICATIONTRIG less than 150 mg/dL NormalTRIG 150-199 mg/dL Borderline highTRIG 200-500 mg/dL High TRIG greater than 500 mg/dL Very highStandard traceable to the Center for Disease Conrtrol and Prevention (CDC) test method. Urea nitrogen [Mass/volume] in Serum or PlasmaOrdered By: Charan Casey on 11-26-2023 Urea nitrogen [Mass/Vol] 32 mg/dL 06-23 [facility] Glucose Glucometer (BldC) [M ass/Vol]Ordered By: Yasmeen Treadwell on 10-06-2023 Glucose [Mass/Vol] 150 mg/dL [facility] Comment on above: Random Glucose Refer ence Range is dependent on time and content of last meal. Glucose of more than 200 mg/dL in a nonstressed, ambulatory subject supports the diagnosis of Diabetes Mellitus. Albumin [Mass/volume] in Ser um or Plasma by Bromocresol green (BCG) dye binding methoOrdered By: Elpidio Wihpple on 09-14-2023 Albumin BCG dye [Mass/Vol] 4.5 g/dL 3.5-5.7 [facility] Automated erythrocytes count in urine sediment (number/area)Ordered By: Elpidio Whipple on 09-14-2023 RBC Auto (Urine sed) [#/Area] None seen [HPF] 0-4 [facility] Automated leukocytes count i n urine sediment (number/area)Ordered By: Elpidio Whipple on 09-14-2023 WBC Auto (Urine sed) [#/Area] 1-2 [HPF] 0-4 [facility] Bilirubin Test strip Ql (U)O rdered By: Elpidio Whipple on 09-14-2023 Bilirubin Ql (U) Negative Negative [facility] Calcium [Mass/volume] in Ser um or PlasmaOrdered By: Elpidio Whipple on 09-14-2023 Calcium [Mass/Vol] 9.5 mg/dL 8.6-10.3 [facility] Carbon dioxide, total [Moles /volume] in Serum or PlasmaOrdered By: Elpidio Whipple on 09-14-2023 CO2 [Moles/Vol] 29.7 mmol/L 21.0-31.0 [facility] Chloride [Moles/volume] in S john or PlasmaOrdered By: Elpidio Whipple on 09-14-2023 Chloride [Moles/Vol] 106 mmol/L 98-107 [facility] Color Auto (U)Ordered By: Ab rahul Whipple on 09-14-2023 Color (U) Dark yellow Yellow [facility] Creatinine [Mass/volume] in Serum or PlasmaOrdered By: Elpidio Whipple on 09-14-2023 Creatinine [Mass/Vol] 1.29 mg/dL 0.60-1.20 [facility] Creatinine [Mass/volume] in UrineOrdered By: Elpidio Whipple on 09-14-2023 Creatinine (U) [Mass/Vol] 87.0 mg/dL 11.0-20.0 [facility] Erythrocyte distribution wid th Auto (RBC) [Ratio]Ordered By: Elpidio Whipple on 09-14-2023 Erythrocyte distribution width (RBC) [Ratio] 13.5 % 11.9-15.3 [facility] Glucose [Mass/volume] in Ser um or PlasmaOrdered By: Elpidio Whipple on 09-14-2023 Glucose [Mass/Vol] 97 mg/dL 70-100 [facility] Comment on above: ADA recommended refe rence rangeRandom Glucose Reference Range is dependent on time and content of last meal. Glucose of more than 200 mg/dL in a nonstressed, ambulatory subject supports the diagnosis of Diabetes Mellitus. Hematocrit Auto (Bld) [Volum e fraction]Ordered By: Elpidio Whipple on 09-14-2023 Hematocrit (Bld) [Volume fraction] 42.7 % 34.0-46.4 [facility] Hemoglobin [Mass/volume] in BloodOrdered By: Elpidio Whipple on 09-14-2023 Hemoglobin (Bld) [Mass/Vol] 14.3 g/dL 11.8-15.4 [facility] Ketones Auto test strip (U) [Mass/Vol]Ordered By: Elpidio Whipple on 09-14-2023 Ketones (U) [Mass/Vol] Negative Negative [facility] Laboratory - UrinalysisOrder ed By: Elpidio Whipple on 09-14-2023 Hyaline casts LM Ql (Urine sed) 0-8 [LPF] 0-8 [facility] Leukocytes [#/volume] correc praneeth for nucleated erythrocytes in Blood by Automated counOrdered By: Elpidio Whipple on 09-14-2023 WBC corrected for nucl RBC Auto (Bld) [#/Vol] 7.7 10*3/uL 3.8-11.6 [facility] MCH Auto (RBC) [Entitic mass ]Ordered By: Elpidio Whipple on 09-14-2023 MCH (RBC) [Entitic mass] 29.1 pg 24.7-34.3 [facility] MCHC Auto (RBC) [Mass/Vol]Or dered By: Elpidio Whipple on 09-14-2023 MCHC (RBC) [Mass/Vol] 33.6 g/dL 32.0-35.0 [facility] MCV Auto (RBC) [Entitic vol] Ordered By: Elpidio Whipple on 09-14-2023 MCV (RBC) [Entitic vol] 86.5 fL 80-100 [facility] Magnesium [Mass/volume] in S john or PlasmaOrdered By: Elpidio Whipple on 09-14-2023 Magnesium [Mass/Vol] 1.9 mg/dL 1.9-2.7 [facility] Nitrite Test strip Ql (U)Ord ered By: Elpidio Whipple on 09-14-2023 Nitrite Ql (U) Negative Negative [facility] No Panel InformationOrdered By: Elpidio Whipple on 09-14-2023 Estimated GFR (CKD-EPI) 46.926 mL/Min [facility] Creatinine Clearance (Chem N/A [facility] Parathyrin.intact [Mass/volu me] in Serum or PlasmaOrdered By: Elpidio Whipple on 09-14-2023 Parathyrin.intact [Mass/Vol] 133.6 pg/mL 12-88 [facility] Phosphate [Mass/volume] in S john or PlasmaOrdered By: Elpidio Silvadir on 09-14-2023 Phosphate [Mass/Vol] 3.4 mg/dL 3.7-7.2 [facility] Platelet mean volume Auto (B ld) [Entitic vol]Ordered By: Elpidio Sole on 09-14-2023 Platelet mean volume (Bld) [Entitic vol] 10.0 fL 6.3-10.7 [facility] Platelets Auto (Bld) [#/Vol] Ordered By: Elpidio Sole on 09-14-2023 Platelets (Bld) [#/Vol] 193 10*3/uL 150-450 [facility] Potassium [Moles/volume] in Serum or PlasmaOrdered By: Elpidio Sole on 09-14-2023 Potassium [Moles/Vol] 4.7 mmol/L 3.5-5.1 [facility] Protein Auto test strip (U) [Mass/Vol]Ordered By: Elpidio Sole on 09-14-2023 Protein (U) [Mass/Vol] Negative Negative [facility] Protein [Mass/volume] in Uri neOrdered By: Elpidio Sole on 09-14-2023 Protein (U) [Mass/Vol] 12 mg/dL 0-[address] [facility] RBC Auto (Bld) [#/Vol]Ordere d By: Elpidio Sole on 09-14-2023 RBC (Bld) [#/Vol] 4.93 10*6/uL 3.60-5.00 [facility] Serum or plasma anion gap de terminationOrdered By: Elpidio Sole on 09-14-2023 Anion gap [Moles/Vol] 11.0 mmol/L 6.0-15.[address] [facility] Sodium [Moles/volume] in Ser um or PlasmaOrdered By: Elpidio Sole on 09-14-2023 Sodium [Moles/Vol] 142 mmol/L 136-145 [facility] Specific gravity Auto test s trip (U) [Rel density]Ordered By: Elpidio Sole on 09-14-2023 Specific gravity (U) [Rel density] 1.020 1.001-1.030 [facility] Squamous epithelial cells de tection in urine sediment by light microscopyOrdered By: Elpidio Whipple on 09-14-2023 Epithelial cells.squamous LM Ql (Urine sed) 3-4 [HPF] 0-2 [facility] Urate [Mass/volume] in Serum or PlasmaOrdered By: Elpidio Whipple on 09-14-2023 Urate [Mass/Vol] 6.2 mg/dL 2.3-6.6 [facility] Urea nitrogen [Mass/volume] in Serum or PlasmaOrdered By: Elpidio Whipple on 09-14-2023 Urea nitrogen [Mass/Vol] 46 mg/dL 7-25 [facility] Urine bacteria detection by automated methodOrdered By: Elpidio Whipple on 09-14-2023 Bacteria Auto Ql (U) None seen None Seen [facility] Urine clarity by refractomet ry automatedOrdered By: Elpidio Whipple on 09-14-2023 Clarity Refractometry automated (U) Clear Clear [facility] Urine glucose measurement by automated test strip (mass/volume)Ordered By: Elpidio Whipple on 09-14-2023 Glucose Auto test strip (U) [Mass/Vol] Normal mg/dL Normal [facility] Urine hemoglobin detection b y automated test stripOrdered By: Elpidio Whipple on 09-14-2023 Hemoglobin Auto test strip Ql (U) Negative Negative [facility] Urine leukocyte esterase det ection by automated test stripOrdered By: Elpidio Whipple on 09-14-2023 Leukocyte esterase Auto test strip Ql (U) 1+ Negative [facility] Urine protein/creatinine rat ioOrdered By: Elpidio Whipple on 09-14-2023 Protein/Creatinine (U) [Ratio] 138 mg/g{Cre} 0-200 [facility] Urobilinogen Auto test strip (U) [Mass/Vol]Ordered By: Elpidio Whipple on 09-14-2023 Urobilinogen (U) [Mass/Vol] Normal mg/dL Normal [facility] Vitamin D+Metabolites [Mass/ volume] in Serum or PlasmaOrdered By: Elpidio Whipple on 09-14-2023 Vitamin D+Metabolites [Mass/Vol] 50.6 ng/mL 30-100 [facility] Comment on above: VITAMIN D STATUS 25( [place])VITAMIN D RANGE (ng/mL) Deficient <20 Insufficient 20 to <30Sufficient 30 to 100Reference: Nayeli MF,Hannah SCHREIBER, Jose GILBERT, et al. Evaluation,treatment, and prevention of vitamin D deficiency; an Endocrine Society clinical practice guideline. JCEM. 2010; 96(7):1911-30. pH Auto test strip (U)Ordere d By: Elpidio Whipple on 09-14-2023 pH (U) 5.5 [pH] 5.0-9.0 [facility] Urine 10 SGon 05-19-2023 Albumin DL <= 20 mg/L (U) [Mass/Vol] Negative [employer] Other pH (U) 6.0 [pH] [employer] Other Urine 10 SG Negative [employer] Other Urine 10 SG 1.010 [employer] Other Urine 10 SG 0.2 [employer] Other Height or Weight NOT Doneon 04-30-2023 Adult depression screening assessment No [facility] Current DO Work Phone: Fall risk assessment a) No falls within the last year [facility] [employer] 250 DO Work Phone: Tobacco use status [facility] b) No M [facility] Fair value DO Work Phone: Office Visit (Cardiology)on 04-30-2023 [...] any trouble since her angioplasty. She has Vdbrfrn-Gynks-Rqvfm disease and had recent surgery on the [...] machine patient has been compliant with it. 7?Jmzmkjr-Ffftb-Cjwdq joint in the ankles status post recent [...] TABLET DAILY. Vitamin D (Ergocalciferol) 1.25 MG (64093 UT) Oral CapsuleTake 1 tablet twice weekly Allergies Medication Erythromycin Base TABS Adverse Reaction; Gatrointestinal upset; Updated By: Adrianna Emanuel; (more content not included)... Normal [facility] POINT OF CARE GLUCOSEon 03-30 Glucose [Mass/Vol] 215 mg/dL Critically high 74-106 [facility] Comment on above: Performed By: #### P OCGLUC ####[facility] [address] [address]Dr. Tere Soto PROF CHEM 8 (BAS METB)on Anion gap [Moles/Vol] 9.6 mmol/L Normal [facility] Comment on above: Performed By: #### B MP ####[facility] [address] [place], [place] [address]Dr. Tere Soto Calcium [Mass/Vol] 10.3 mg/dL Critically high 8.5-10.1 [facility] Comment on above: Performed By: #### B MP ####[facility] [address] [place], [place] [address]Dr. Tere Soto Chloride [Moles/Vol] 103 mmol/L Normal 98-107 [facility] Comment on above: Performed By: #### B MP ####[facility] [address] [place], [place] [address]Dr. Tere Soto CO2 [Moles/Vol] 31.0 mmol/L Normal 21.0-32.0 [facility] Comment on above: Performed By: #### B MP ####[facility] [address] [place], [place] [address]Dr. Tere Soto Creatinine [Mass/Vol] 1.48 mg/dL Critically high 0.55-1.02 [facility] Comment on above: Performed By: #### B MP ####[facility] [address] [place], [place] [address]Dr. Tere Soto EGFR-AF CROATIAN 43 mL/min/1.73m2 Critically low >=60 [facility] Comment on above: Performed By: #### B MP ####[facility] [address] [place], [place] [address]Dr. Tere Soto EGFR-NON AF CROATIAN 36 mL/min/1.73m2 Critically low >=60 [facility] Comment on above: Performed By: #### B MP ####[facility] [address] [place], [place] [address]Hc. Tere Soto Glucose [Mass/Vol] 173 mg/dL Critically high 74-106 [facility] Comment on above: Performed By: #### B MP ####[facility] [address] [place], [place] [address]Xt. Tere Soto Potassium [Moles/Vol] 4.6 mmol/L Normal 3.5-5.1 [facility] Comment on above: Performed By: #### B MP ####[facility] [address] [place] [id number]. Tere Soto Sodium [Moles/Vol] 139 mmol/L Normal 136-145 [facility] Comment on above: Performed By: #### B MP ####[facility] [address] [address]Dr. Tere Soto Urea nitrogen [Mass/Vol] 63.0 mg/dL Critically high 7.0-18.0 [facility] Comment on above: Performed By: #### B MP ####[facility] [address] [place] [id number]. Teer Soto Urea nitrogen/Creatinine [Mass ratio] 42.6 mg/mg Normal [facility] Comment on above: Performed By: #### B MP ####[facility] [id number]. Tere Soto CT FOOT LT WO CONon [...] by: BLANKA OLGUIN Date: 2023-03-23 14:59 Normal [facility] Albumin [Mass/volume] in Ser um or Plasma by Bromocresol green (BCG) dye binding methoOrdered By: Elpidio Whipple on 03-06-2023 Albumin BCG dye [Mass/Vol] 4.7 g/dL 3.5-5.7 [facility] Automated erythrocytes count in urine sediment (number/area)Ordered By: Elpidio Whipple on 03-06-2023 RBC Auto (Urine sed) [#/Area] None seen [HPF] 0-4 [facility] Automated leukocytes count i n urine sediment (number/area)Ordered By: Elpidio Whipple on 03-06-2023 WBC Auto (Urine sed) [#/Area] 5-9 [HPF] 0-4 [facility] Bilirubin Test strip Ql (U)O rdered By: Elpidio Whipple on 03-06-2023 Bilirubin Ql (U) Negative Negative [facility] Calcium [Mass/volume] in Ser um or PlasmaOrdered By: Elpidio Whipple on 03-06-2023 Calcium [Mass/Vol] 10.2 mg/dL 8.6-10.3 [facility] Carbon dioxide, total [Moles /volume] in Serum or PlasmaOrdered By: Elpidio Whipple on 03-06-2023 CO2 [Moles/Vol] 28.4 mmol/L 21.0-31.0 [facility] Chloride [Moles/volume] in S john or PlasmaOrdered By: Elpidio Whipple on 03-06-2023 Chloride [Moles/Vol] 104 mmol/L 98-107 [facility] Color Auto (U)Ordered By: Ab rahul Whipple on 03-06-2023 Color (U) Dark yellow Yellow [facility] Creatinine [Mass/volume] in Serum or PlasmaOrdered By: Elpidio Whipple on 03-06-2023 Creatinine [Mass/Vol] 1.22 mg/dL 0.60-1.20 [facility] Creatinine [Mass/volume] in UrineOrdered By: Elpidio Whipple on 03-06-2023 Creatinine (U) [Mass/Vol] 98.0 mg/dL [facility] Comment on above: No reference range e stablished Erythrocyte distribution wid th Auto (RBC) [Ratio]Ordered By: Elpidio Whipple on 03-06-2023 Erythrocyte distribution width (RBC) [Ratio] 13.8 % 11.9-15.3 [facility] Glucose [Mass/volume] in Ser um or PlasmaOrdered By: Elpidio Whipple on 03-06-2023 Glucose [Mass/Vol] 101 mg/dL 70-100 [facility] Comment on above: ADA recommended refe rence rangeRandom Glucose Reference Range is dependent on time and content of last meal. Glucose of more than 200 mg/dL in a nonstressed, ambulatory subject supports the diagnosis of Diabetes Mellitus. Hematocrit Auto (Bld) [Volum e fraction]Ordered By: Elpidio Whipple on 03-06-2023 Hematocrit (Bld) [Volume fraction] 38.1 % 34.0-46.4 [facility] Hemoglobin [Mass/volume] in BloodOrdered By: Elpidio Whipple 03-06-2023 Hemoglobin (Bld) [Mass/Vol] 12.7 g/dL 11.8-15.4 [facility] Ketones Auto test strip (U) [Mass/Vol]Ordered By: Elpidio Whipple on 03-06-2023 Ketones (U) [Mass/Vol] Negative Negative [facility] Laboratory - UrinalysisOrder ed By: Elpidio Whipple on 03-06-2023 Hyaline casts LM Ql (Urine sed) 0-8 [LPF] 0-8 [facility] Leukocytes [#/volume] correc praneeth for nucleated erythrocytes in Blood by Automated counOrdered By: Elpidio Whipple on 03-06-2023 WBC corrected for nucl RBC Auto (Bld) [#/Vol] 5.4 10*3/uL 3.8-11.6 [facility] MCH Auto (RBC) [Entitic mass ]Ordered By: Elpidio Whipple on 03-06-2023 MCH (RBC) [Entitic mass] 28.1 pg 24.7-34.3 [facility] MCHC Auto (RBC) [Mass/Vol]Or dered By: Elpidio Whipple on 03-06-2023 MCHC (RBC) [Mass/Vol] 33.3 g/dL 32.0-35.0 [facility] MCV Auto (RBC) [Entitic vol] Ordered By: Elpidio Whipple on 03-06-2023 MCV (RBC) [Entitic vol] 84.5 fL 80-100 [facility] Magnesium [Mass/volume] in S john or PlasmaOrdered By: Elpidio Whipple on 03-06-2023 Magnesium [Mass/Vol] 1.5 mg/dL 1.9-2.7 [facility] Nitrite Test strip Ql (U)Ord ered By: Elpidio Whipple on 03-06-2023 Nitrite Ql (U) Negative Negative [facility] No Panel InformationOrdered By: Elpidio Whipple on 03-06-2023 Estimated GFR (CKD-EPI) 50.176 mL/Min [facility] Creatinine Clearance (Chem N/A [facility] Parathyrin.intact [Mass/volu me] in Serum or PlasmaOrdered By: Elpidio Whipple on 03-06-2023 Parathyrin.intact [Mass/Vol] 43.8 pg/mL 12-88 [facility] Phosphate [Mass/volume] in S john or PlasmaOrdered By: Elpidio Whipple on 03-06-2023 Phosphate [Mass/Vol] 4.3 mg/dL 3.7-7.2 [facility] Platelet mean volume Auto (B ld) [Entitic vol]Ordered By: Elpidio Whipple on 03-06-2023 Platelet mean volume (Bld) [Entitic vol] 8.7 fL 6.3-10.7 [facility] Platelets Auto (Bld) [#/Vol] Ordered By: Elpidio Sole on 03-06-2023 Platelets (Bld) [#/Vol] 191 10*3/uL 150-450 [facility] Potassium [Moles/volume] in Serum or PlasmaOrdered By: Elpidio Sole on 03-06-2023 Potassium [Moles/Vol] 4.0 mmol/L 3.5-5.1 [facility] Protein Auto test strip (U) [Mass/Vol]Ordered By: Elpidio Sole on 03-06-2023 Protein (U) [Mass/Vol] Negative Negative [facility] Protein [Mass/volume] in Uri neOrdered By: Elpidio Sole on 03-06-2023 Protein (U) [Mass/Vol] 8 mg/dL 0-9 [facility] RBC Auto (Bld) [#/Vol]Ordere d By: Elpidio Sole on 03-06-2023 RBC (Bld) [#/Vol] 4.51 10*6/uL 3.60-5.00 [facility] Serum or plasma anion gap de terminationOrdered By: Elpidio Sole on 03-06-2023 Anion gap [Moles/Vol] 12.6 mmol/L 6.0-15.[address] [facility] Sodium [Moles/volume] in Ser um or PlasmaOrdered By: Elpidio Sole on 03-06-2023 Sodium [Moles/Vol] 141 mmol/L 136-145 [facility] Specific gravity Auto test s trip (U) [Rel density]Ordered By: Elpidio Zarater on 03-06-2023 Specific gravity (U) [Rel density] 1.017 1.001-1.030 [facility] Squamous epithelial cells de tection in urine sediment by light microscopyOrdered By: Elpidio Zarater on 03-06-2023 Epithelial cells.squamous LM Ql (Urine sed) 5-9 [HPF] 0-2 [facility] Urate [Mass/volume] in Serum or PlasmaOrdered By: Elpidio Sole on 03-06-2023 Urate [Mass/Vol] 6.7 mg/dL 2.3-6.6 [facility] Urea nitrogen [Mass/volume] in Serum or PlasmaOrdered By: Elpidio Whipple on 03-06-2023 Urea nitrogen [Mass/Vol] 37 mg/dL 7-25 [facility] Urine bacteria detection by automated methodOrdered By: Elpidio Whipple on 03-06-2023 Bacteria Auto Ql (U) None seen None Seen [facility] Urine clarity by refractomet ry automatedOrdered By: Elpidio Whipple on 03-06-2023 Clarity Refractometry automated (U) Clear Clear [facility] Urine culture routineOrdered By: Elpidio Whipple on 03-06-2023 Bacteria identified Cx Nom (U) 2 Days [facility] Urine glucose measurement by automated test strip (mass/volume)Ordered By: Elpidio Whipple on 03-06-2023 Glucose Auto test strip (U) [Mass/Vol] Normal mg/dL Normal [facility] Urine hemoglobin detection b y automated test stripOrdered By: Elpidio Whipple on 03-06-2023 Hemoglobin Auto test strip Ql (U) Negative Negative [facility] Urine leukocyte esterase det ection by automated test stripOrdered By: Elpidio Whipple on 03-06-2023 Leukocyte esterase Auto test strip Ql (U) 2+ Negative [facility] Urine protein/creatinine rat ioOrdered By: Elpidio Whipple on 03-06-2023 Protein/Creatinine (U) [Ratio] 82 mg/g{Cre} 0-200 [facility] Urobilinogen Auto test strip (U) [Mass/Vol]Ordered By: Elpidio Whipple on 03-06-2023 Urobilinogen (U) [Mass/Vol] Normal mg/dL Normal [facility] Vitamin D+Metabolites [Mass/ volume] in Serum or PlasmaOrdered By: Elpidio Whipple on 03-06-2023 Vitamin D+Metabolites [Mass/Vol] 46.0 ng/mL 30-100 [facility] Comment on above: VITAMIN D STATUS 25( [place])VITAMIN D RANGE (ng/mL) Deficient <20 Insufficient 20 to <30Sufficient 30 to 100Reference: Nayeli MF,Hannah NC, Jose GILBERT, et al. Evaluation,treatment, and prevention of vitamin D deficiency; an Endocrine Society clinical practice guideline. JCEM. 2010; 96(7):1911-30. pH Auto test strip (U)Ketan scott By: Elpidio Whipple on 03-06-2023 pH (U) 5.5 [pH] 5.0-9.0 [facility] XR FOOT LAURA MIN 3 VIEWSon XR [...] by: BRODERICK FLOR Date: 2023-02-17 14:34 Normal [facility] CBC AUTO DIFFon 12-23-2022 BASO # 0.0 103/ul Normal 0.0-0.1 [facility] Comment on above: Performed By: #### C BC #### [facility] [address] [address] [address] Tere Soto Basophils/100 WBC (Bld) 0.6 % Normal 0.2-2.0 [facility] Comment on above: Performed By: #### C BC #### [facility] [address] [address] [address] Tere Soto EO # 0.1 103/ul Normal 0.0-0.7 [facility] Comment on above: Performed By: #### C BC #### [facility] [address] [place] [address] Dr. Tere Soto Eosinophils/100 WBC (Bld) 2.9 % Normal 0.9-7.0 [facility] Comment on above: Performed By: #### C BC #### [facility] [address] [place] [address] Dr. Tere Soto Erythrocyte distribution width (RBC) [Ratio] 13.2 % Normal 11.0-15.0 [facility] Comment on above: Performed By: #### C BC #### [facility] [address] [place] [address] Dr. Tere Soto Hematocrit (Bld) [Volume fraction] 39.0 % Normal 36.0-48.0 [facility] Comment on above: Performed By: #### C BC #### [facility] [address] [place] [address] Dr. Tere Soto Hemoglobin (Bld) [Mass/Vol] 13.0 g/dL Normal 12.0-16.0 [facility] Comment on above: Performed By: #### C BC #### [facility] [address] [place] [address] Dr. Tere Soto IG # 0.01 10e3/ul Normal 0.00-0.03 [facility] Comment on above: Performed By: #### C BC #### [facility] [address] [place] [address] Dr. Tere Soto IG % 0.2 % Normal 0.0-0.[address] [facility] Comment on above: Performed By: #### C BC #### [facility] [address] [place] [address] Dr. Tere Soto LYMPH # 2.1 103/ul Normal 1.2-3.[address] [facility] Comment on above: Performed By: #### C BC #### [facility] [address] [place] [address] Dr. Tere Soto Lymphocytes/100 WBC (Bld) 42.6 % Normal 20.5-60.0 [facility] Comment on above: Performed By: #### C BC #### [facility] [address] [place] [address] Dr. Tere Soto MANUAL DIFF REQ NO Normal [facility] Comment on above: Performed By: #### C BC #### [facility] [address] [place] [address] Dr. Tere Soto MCH (RBC) [Entitic mass] 28.4 pg Normal 26.7-34.0 [facility] Comment on above: Performed By: #### C BC #### [facility] [address] [place] [address] Dr. Tere Soto MCHC (RBC) [Mass/Vol] 33.3 g/dL Normal 29.9-35.2 [facility] Comment on above: Performed By: #### C BC #### [facility] [address] [place] [address] Dr. Tere Soto MCV (RBC) [Entitic vol] 85.2 fL Normal 81.0-99.0 [facility] Comment on above: Performed By: #### C BC #### [facility] [address] [place] [address] Dr. Tere Soto MONO # 0.3 103/ul Normal 0.3-0.8 [facility] Comment on above: Performed By: #### C BC #### [facility] [address] [place] [address] Dr. Tere Soto Monocytes/100 WBC (Bld) 6.8 % Normal 1.7-12.0 [facility] Comment on above: Performed By: #### C BC #### [facility] [address] [place] [address] Dr. Tere Soto NEUT # 2.3 103/ul Normal 1.4-6.5 [facility] Comment on above: Performed By: #### C BC #### [facility] [address] [place] [address] Dr. Tere Soto Neutrophils/100 WBC (Bld) 46.9 % Normal 43.0-75.0 [facility] Comment on above: Performed By: #### C BC #### [facility] [address] [place] [address] Dr. Tere Soto Platelet mean volume (Bld) [Entitic vol] 11.3 fL Normal 9.5-13.5 [facility] Comment on above: Performed By: #### C BC #### [facility] [address] [place] [address] Dr. Tere Soto PLT 183 103/ul Normal 150-[address] [facility] Comment on above: Performed By: #### C BC #### [facility] [address] [place] [address] Dr. Tere Soto RBC 4.58 106/ul Normal 4.20-5.40 [facility] Comment on above: Performed By: #### C BC #### [facility] [address] [place] [address] Dr. Tere Soto WBC 4.8 103/ul Normal 4.0-11.0 [facility] Comment on above: Performed By: #### C BC #### [facility] [address] [place] [address] Dr. Tere Soto Covid-19 PCR ([facility])on 12-01 SARS-CoV-2 (COVID-19) RNA AHMET+probe Ql [...] for this test is supported by the [place] of Health and Human Service's (HHS's) declaration [...] #### [facility] [address] [place] [address] Dr. Tere Soto PROF CHEM 8 (BAS METB)on Anion gap [Moles/Vol] 13.6 mmol/L Normal [facility] Comment on above: Performed By: #### B MP #### [facility] [address] [place] [address] Dr. Tere Soto Calcium [Mass/Vol] 9.6 mg/dL Normal 8.5-10.1 [facility] Comment on above: Performed By: #### B MP #### [facility] [address] [place] [address] Dr. Tere Soto Chloride [Moles/Vol] 103 mmol/L Normal 98-107 [facility] Comment on above: Performed By: #### B MP #### [facility] [address] [place] [address] Dr. Tere Soto CO2 [Moles/Vol] 28.9 mmol/L Normal 21.0-32.0 [facility] Comment on above: Performed By: #### B MP #### [facility] [address] [place] [address] Dr. Tere Soto Creatinine [Mass/Vol] 1.25 mg/dL Critically high 0.55-1.02 [facility] Comment on above: Performed By: #### B MP #### [facility] [address] [place] [address] Dr. Tere Soto EGFR-AF CROATIAN 53 mL/min/1.73m2 Critically low >=60 [facility] Comment on above: Performed By: #### B MP #### [facility] [address] [place] [address] Dr. Tere Soto EGFR-NON AF CROATIAN 43 mL/min/1.73m2 Critically low >=60 [facility] Comment on above: Performed By: #### B MP #### [facility] [address] [place] [address] Dr. Tere Soto Glucose [Mass/Vol] 121 mg/dL Critically high 74-106 [facility] Comment on above: Performed By: #### B MP #### [facility] [address] [address] [address] Tere Soto Potassium [Moles/Vol] 4.5 mmol/L Normal 3.5-5.1 [facility] Comment on above: Performed By: #### B MP #### [facility] [address] [address] [address] Tere Soto Sodium [Moles/Vol] 141 mmol/L Normal 136-145 [facility] Comment on above: Performed By: #### B MP #### [facility] [address] [address] [address] Tere Soto Urea nitrogen [Mass/Vol] 43.0 mg/dL Critically high 7.0-18.0 [facility] Comment on above: Performed By: #### B MP #### [facility] [address] [address] [address] Tere Soto Urea nitrogen/Creatinine [Mass ratio] 34.4 mg/mg Normal [facility] Comment on above: Performed By: #### B MP #### [facility] [address] [address] [address] Tere Soto PROTIMEon 12-23-2022 INR Coag (PPP) [Relative time] {INR} Normal [facility] Comment on above: Performed By: #### P T, PTT ####[facility] [address] [address]Dr. Tere Soto INR GUIDELINES SEE BELOW Normal [facility] Comment on above: Result Comment: RUBEN RED INR: 2.0 - 3.0 CONDITIONS NOT LISTED BELOW 2.5 - 3.5 FOR PROSTHETIC HEART VALVE REPLACEMENT 2.5 - 3.5 RECURRENT THROMBOSIS Performed By: #### P T, PTT ####[facility] [address] [id number]. Tere Soto PT Coag (PPP) [Time] 9.8 s Normal 9.0-11.6 [facility] Comment on above: Performed By: #### P T, PTT ####[facility] [address] [place], [place] [address]BzDerek Soto PTTon 12-23-2022 aPTT Coag (Bld) [Time] 26.5 s Normal 22.3-36.[address] [facility] Comment on above: Performed By: #### P T, PTT ####[facility] [address] [place], [place] [address] FOOT LT WO CONon 11-26-20 [...] 36.0 to 36.9 in adult (278.00,V85.36) (E66.9,Z68.36) Wbbgstn-Ptroz-Ucnlt disease (356.1) (G60.0) Orders CAD (coronary artery [...] Aminotransferase, Serum; Status:Active - Retrospective Authorization; Requested for:[id number] 09:18AM; AST; Status:Active - Retrospective Authorization; Requested for:10Feb2023 09:18AM; Lipid Panel; Status:Active - Retrospective Authorization; Requested for:10Feb2023 09:18AM; Class 2 obesity with body mass index (BMI) of 36.0 to 36.9 in adult Healthy Weight Tips; Status:Complete - Retrospective Authorization; Done: [id number] Some eating tips that can help you lose weight.; Status:Complete - Retrospective Authorization; Done: [id number] SocHx: Never a smoker Tobacco Use Screening; Status:Complete; Done: [id number] Patient Instructions Please bring all medicines, vitamins, [...] Since her last visit she has developed Eudwech-Gquxm-Mmfei joint in the left foot and is [...] machine patient has been compliant with it. 7?Ssvksqi-Zjpej-Wysau joint in the left ankle and need [...] Methicillin resistant Staph aureus not isolated Normal [facility] Hgb A1Con 10-08-2022 HbA1c (Bld) [Mass fraction] 7.1 % High 4.0-5.6 [facility] Sedimentation Rateon Sedimentation Rate 44 mm/Hr High 0-20 [facility] C-Reactive Proteinon 022 C-Reactive Protein 0.4 mg/dL Normal 0.0-0.4 [facility] CBC With Platelet and Differ entialon 10-07-2022 Abs Imm Granulocytes 0.01 E9/L Normal [facility] Absolute Basophils 0.05 E9/L Normal 0.00-0.20 [facility] Absolute Eosinophils 0.15 E9/L Normal 0.05-0.50 [facility] Absolute Lymphocytes 2.20 E9/L Normal 1.50-4.00 [facility] Absolute Monocytes 0.35 E9/L Normal 0.10-0.95 [facility] Absolute Neutrophils 1.88 E9/L Normal 1.80-7.30 [facility] Basophils/100 WBC (Bld) 1.1 % Normal 0.0-2.0 [facility] Eosinophils/100 WBC (Bld) 3.2 % Normal 0.0-6.0 [facility] Hematocrit (Bld) [Volume fraction] 36.9 % Normal 34.0-48.0 [facility] Hemoglobin (Bld) [Mass/Vol] 12.4 g/dL Normal 11.5-15.5 [facility] Imm Granulocytes 0.2 % Normal 0.0-5.0 [facility] Lymphocytes/100 WBC (Bld) 47.4 % High 20.0-42.0 [facility] MCH (RBC) [Entitic mass] 29.7 pg Normal 26.0-35.0 [facility] MCHC 33.6 % Normal 32.0-34.5 [facility] MCV (RBC) [Entitic vol] 88.3 fL Normal 80.0-99.9 [facility] Monocytes/100 WBC (Bld) 7.5 % Normal 2.0-12.0 [facility] Neutrophils/100 WBC (Bld) 40.6 % Low 43.0-80.0 [facility] Platelet Count 208 E9/L Normal 130-450 [facility] Platelet mean volume (Bld) [Entitic vol] 11.7 fL Normal 7.0-12.0 [facility] RBC 4.18 E12/L Normal 3.50-5.50 [facility] RDW 13.3 fL Normal 11.5-15.0 [facility] WBC 4.6 E9/L Normal 4.5-11.5 [facility] Comprehensive Metabolic Pane alma 10-07-2022 Albumin [Mass/Vol] 4.3 g/dL Normal 3.5-5.2 [facility] ALP [Catalytic activity/Vol] 71 U/L Normal 35-104 [facility] ALT [Catalytic activity/Vol] 12 U/L Normal 0-32 [facility] Anion gap [Moles/Vol] 10 mmol/L Normal 7-16 [facility] AST [Catalytic activity/Vol] 19 U/L Normal 0-31 [facility] Bilirubin [Mass/Vol] 0.3 mg/dL Normal 0.0-1.2 [facility] Calcium [Mass/Vol] 10.3 mg/dL High 8.6-10.2 [facility] Chloride [Moles/Vol] 103 mmol/L Normal 98-107 [facility] CO2 [Moles/Vol] 27 mmol/L Normal 22-29 [facility] Creatinine [Mass/Vol] 1.2 mg/dL High 0.5-1.0 [facility] GFR/1.73 sq M.predicted among non-blacks MDRD (S/P/Bld) [Vol rate/Area] 51 mL/min/{1.73_m2} Normal >=60 [facility] Comment on above: Result Comment: Clifford [...] secretion. Glucose [Mass/Vol] 111 mg/dL High 74-99 [facility] Potassium [Moles/Vol] 4.6 mmol/L Normal 3.5-5.0 [facility] Protein [Mass/Vol] 7.3 g/dL Normal 6.4-8.3 [facility] Sodium [Moles/Vol] 140 mmol/L Normal 132-146 [facility] Urea nitrogen [Mass/Vol] 30 mg/dL High 6-23 [facility] Albumin [Mass/volume] in Ser um or PlasmaOrdered By: Charan Casey on 08-13-2022 Albumin [Mass/Vol] 3.9 g/dL 3.2-5.5 [facility] Automated erythrocytes count in urine sediment (number/area)Ordered By: Elpidio Whipple on 08-13-2022 RBC Auto (Urine sed) [#/Area] 0-1 [HPF] 0-4 [facility] Automated leukocytes count i n urine sediment (number/area)Ordered By: Elpidio Whipple on 08-13-2022 WBC Auto (Urine sed) [#/Area] None seen [HPF] 0-4 [facility] Basophils Auto (Bld) [#/Vol] Ordered By: Charan Casey on 08-13-2022 Basophils (Bld) [#/Vol] 0.1 10*3/uL 0.0-0.2 [facility] Basophils/100 WBC Auto (Bld) Ordered By: Charan Casey on 08-13-2022 Basophils/100 WBC (Bld) 1.0 % . [facility] Bilirubin Test strip Ql (U)O rdered By: Elpidio Whipple on 08-13-2022 Bilirubin Ql (U) Negative Negative [facility] Cholesterol [Mass/volume] in Serum or PlasmaOrdered By: Charan Casey on 08-13-2022 Cholesterol [Mass/Vol] 170 mg/dL 140-[address] [facility] Comment on above: Chol less than 200 m g/dl low riskChol 201-239 mg/dl borderline riskChol 240 mg/dl and greater high risk Cholesterol in LDL Calc [Mas s/Vol]Ordered By: Charan Casey on 08-13-2022 Cholesterol in LDL [Mass/Vol] 101 mg/dL 0-100 [facility] Comment on above: LDL ATP III CLASSIFI CATIONLDL less than 100 mg/dL OptimalLDL 100-129 mg/dL Near or above optimalLDL 130-159 mg/dL Borderline highLDL 160-189 mg/dL HighLDL greater than 189 mg/dL Very high Cholesterol in VLDL Calc [Ma ss/Vol]Ordered By: Charan Casey on 08-13-2022 Cholesterol in VLDL [Mass/Vol] 41 mg/dL [facility] Color Auto (U)Ordered By: Ab rahul Whipple on 08-13-2022 Color (U) Dark yellow Yellow [facility] Creatinine [Mass/volume] in UrineOrdered By: Elpidio Whipple on 08-13-2022 Creatinine (U) [Mass/Vol] 127.6 mg/dL [facility] Comment on above: No reference range e stablished Creatinine and Glomerular fi ltration rate.predicted panel (S/P/Bld)Ordered By: Charan Casey on 08-13-2022 Creatinine [Mass/Vol] 1.41 mg/dL 0.44-1.03 [facility] Eosinophils Auto (Bld) [#/Vo l]Ordered By: Charan Casey on 08-13-2022 Eosinophils (Bld) [#/Vol] 0.1 10*3/uL 0.0-0.45 [facility] Eosinophils/100 WBC Auto (Bl d)Ordered By: Charan Casey on 08-13-2022 Eosinophils/100 WBC (Bld) 1.7 % . [facility] Erythrocyte distribution wid th Auto (RBC) [Ratio]Ordered By: Charan Casey on 08-13-2022 Erythrocyte distribution width (RBC) [Ratio] 13.1 % 11.9-15.3 [facility] Estimated glomerular filtrat ion rate (GFR) non- AmericanOrdered By: Charan Casey on 08-13-2022 GFR/1.73 sq M.predicted among non-blacks MDRD (S/P/Bld) [Vol rate/Area] 38 mL/Min [facility] Globulin Calc (S) [Mass/Vol] Ordered By: Charan Casey on 08-13-2022 Globulin (S) [Mass/Vol] 3.1 g/dL F [facility] Hematocrit Auto (Bld) [Volum e fraction]Ordered By: Charan Casey on 08-13-2022 Hematocrit (Bld) [Volume fraction] 38.0 % 34.0-46.4 [facility] Hemoglobin [Mass/volume] in BloodOrdered By: Charan Casey on 08-13-2022 Hemoglobin (Bld) [Mass/Vol] 12.6 g/dL 11.8-15.4 [facility] Ketones Auto test strip (U) [Mass/Vol]Ordered By: Elpidio Whipple on 08-13-2022 Ketones (U) [Mass/Vol] Negative Negative Fi [facility] Laboratory - Chemistry and C hemistry - challengeOrdered By: Elpidio Whipple on 08-13-2022 Magnesium [Mass/Vol] 1.9 mg/dL 1.6-2.6 [facility] Laboratory - Hematology and Cell countsOrdered By: Charan Casey on 08-13-2022 Nucleated RBC/100 WBC (Bld) [Ratio] 0.0 % 0-0.5 [facility] Laboratory - UrinalysisOrder ed By: Elpidio Whipple on 08-13-2022 Hyaline casts LM Ql (Urine sed) 0-8 [LPF] 0-8 [facility] Leukocytes [#/volume] in Blo od by Automated countOrdered By: Charan Casey on 08-13-2022 WBC (Bld) [#/Vol] 8.2 10*3/uL 4.5-11.0 [facility] Lymphocytes Auto (Bld) [#/Vo l]Ordered By: Charan Casey on 08-13-2022 Lymphocytes (Bld) [#/Vol] 2.8 10*3/uL 1.00-4.8 [facility] Lymphocytes/100 WBC Auto (Bl d)Ordered By: Charan Casey on 08-13-2022 Lymphocytes/100 WBC (Bld) 34.1 % . [facility] MCH Auto (RBC) [Entitic mass ]Ordered By: Charan Casey on 08-13-2022 MCH (RBC) [Entitic mass] 28.5 pg 24.7-34.3 [facility] MCHC Auto (RBC) [Mass/Vol]Or dered By: Charan Casey on 08-13-2022 MCHC (RBC) [Mass/Vol] 33.2 g/dL 32.0-35.0 [facility] MCV Auto (RBC) [Entitic vol] Ordered By: Charan Casey on 08-13-2022 MCV (RBC) [Entitic vol] 85.8 fL 80-100 [facility] Monocytes Auto (Bld) [#/Vol] Ordered By: Charan Casey on 08-13-2022 Monocytes (Bld) [#/Vol] 0.5 10*3/uL 0.0-0.8 [facility] Monocytes/100 WBC Auto (Bld) Ordered By: Charan Casey on 08-13-2022 Monocytes/100 WBC (Bld) 6.4 % . [facility] Neutrophils Auto (Bld) [#/Vo l]Ordered By: Charan Casey on 08-13-2022 Neutrophils (Bld) [#/Vol] 4.7 10*3/uL 1.8-7.7 [facility] Neutrophils/100 WBC Auto (Bl d)Ordered By: Charan Casey on 08-13-2022 Neutrophils/100 WBC (Bld) 56.8 % . [facility] Nitrite Test strip Ql (U)Ord ered By: Elpidio Whipple on 08-13-2022 Nitrite Ql (U) Negative Negative [facility] No Panel InformationOrdered By: Charan Casey on 08-13-2022 25-Hydroxy Vitamin D Total 37.8 ng/mL 30-100 [facility] Comment on above: VITAMIN D STATUS 25( [place])VITAMIN D RANGE (ng/mL) Deficient <20 Insufficient 20 to <30Sufficient 30 to 100Reference: Nayeli MF,Hannah NC, Jose GILBERT, et al. Evaluation,treatment, and prevention of vitamin D deficiency; an Endocrine Society clinical practice guideline. JCEM. 2010; 96(7):1911-30. Estimated GFR () 46 mL/Min [facility] Comment on above: GFR estimated refere nce range: According to KDOQI guidelines, <60 ml/min/1.73m2 is sufficient to diagnose a patient with chronic kidney disease. Pharmacy Creatinine Clearance (Chem N/A [facility] Platelet mean volume Auto (B ld) [Entitic vol]Ordered By: Charan Casey on 08-13-2022 Platelet mean volume (Bld) [Entitic vol] 9.2 fL 6.3-10.7 [facility] Platelets Auto (Bld) [#/Vol] Ordered By: Charan Casey on 08-13-2022 Platelets (Bld) [#/Vol] 272 10*3/uL 150-450 [facility] Protein Auto test strip (U) [Mass/Vol]Ordered By: Elpidio Whipple on 08-13-2022 Protein (U) [Mass/Vol] Negative Negative Fi [facility] Protein [Mass/volume] in Ser um or PlasmaOrdered By: Charan Casey on 08-13-2022 Protein [Mass/Vol] 7.0 g/dL 6.1-7.9 [facility] Protein [Mass/volume] in Uri neOrdered By: Elpidio Whipple on 08-13-2022 Protein (U) [Mass/Vol] 7 mg/dL 0-[address] [facility] RBC Auto (Bld) [#/Vol]Ordere d By: Charan Casey on 08-13-2022 RBC (Bld) [#/Vol] 4.43 10*6/uL 3.60-5.00 [facility] Serum or plasma alanine stanton otransferase measurement without P-5'-P (enzymatic activiOrdered By: Charan Casey on 08-13-2022 ALT No additional P-5'-P [Catalytic activity/Vol] 12 U/L 1060 [facility] Serum or plasma albumin/glob ulin mass ratioOrdered By: Charan Casey on 08-13-2022 Albumin/Globulin [Mass ratio] 1.3 {ratio} [facility] Serum or plasma alkaline do sphatase measurement (enzymatic activity/volume)Ordered By: Charan Casey on 08-13-2022 ALP [Catalytic activity/Vol] 79 U/L 32-92 [facility] Serum or plasma anion gap de terminationOrdered By: Charan Casey on 08-13-2022 Anion gap [Moles/Vol] 15.4 mmol/L 6.0-15.[address] [facility] Serum or plasma aspartate am inotransferase measurement (enzymatic activity/volume)Ordered By: Charan Casey on 08-13-2022 AST [Catalytic activity/Vol] 22 U/L 10-42 [facility] Serum or plasma calcium gautam urement (mass/volume)Ordered By: Charan Casey on 08-13-2022 Calcium [Mass/Vol] 10.1 mg/dL 8.2-10.2 [facility] Serum or plasma chloride malika surement (moles/volume)Ordered By: Charan Casey on 08-13-2022 Chloride [Moles/Vol] 102 mmol/L 95-114 [facility] Serum or plasma glucose gautam urement (mass/volume)Ordered By: Charan Casey on 08-13-2022 Glucose [Mass/Vol] 114 mg/dL 70-100 [facility] Comment on above: ADA recommended refe rence rangeRandom Glucose Reference Range is dependent on time and content of last meal. Glucose of more than 200 mg/dL in a nonstressed, ambulatory subject supports the diagnosis of Diabetes Mellitus. Serum or plasma high density lipoprotein (HDL) cholesterol measurementOrdered By: Charan Casey on 08-13-2022 Cholesterol in HDL [Mass/Vol] 28 mg/dL 35-85 [facility] Comment on above: HDL CHOL ATP-III CLA SSIFICATION Cardiovascular RiskHDL > or equal to 60 mg/dL LOWHDL < 40 mg/dL HIGH Serum or plasma intact parat hyroid hormone measurement (mass/volume)Ordered By: Elpidio Whipple on 08-13-2022 Parathyrin.intact [Mass/Vol] 87.0 pg/mL 12 [facility] Serum or plasma potassium me asurement (moles/volume)Ordered By: Charan Casey on 08-13-2022 Potassium [Moles/Vol] 4.9 mmol/L 3.5-5.1 [facility] Serum or plasma sodium measu rement (moles/volume)Ordered By: Charan Casey on 08-13-2022 Sodium [Moles/Vol] 138 mmol/L 136-146 [facility] Serum or plasma total biliru bin measurement (mass/volume)Ordered By: Charan Casey on 08-13-2022 Bilirubin [Mass/Vol] 0.4 mg/dL 0.3-1.2 [facility] Serum or plasma total carbon dioxide measurement (moles/volume)Ordered By: Charan Casey on 08-13-2022 CO2 [Moles/Vol] 25.5 mmol/L 22.0-30.0 [facility] Serum or plasma total choles terol/high density lipoprotein (HDL) cholesterol mass ratOrdered By: Charan Casey on 08-13-2022 Cholesterol.total/Mary sterol in HDL [Mass ratio] 6.1 {ratio} <5.0 [facility] Serum or plasma urea nitroge n measurement (mass/volume)Ordered By: Charan Casey on 08-13-2022 Urea nitrogen [Mass/Vol] 45 mg/dL 08-22 [facility] Serum or plasma uric acid me asurement (mass/volume)Ordered By: Charan Casey on 08-13-2022 Urate [Mass/Vol] 7.9 mg/dL 2.6-7.2 [facility] Specific gravity Auto test s trip (U) [Rel density]Ordered By: Elpidio Whipple on 08-13-2022 Specific gravity (U) [Rel density] 1.020 1.001-1.030 [facility] Squamous epithelial cells de tection in urine sediment by light microscopyOrdered By: Elpidio Whipple on 08-13-2022 Epithelial cells.squamous LM Ql (Urine sed) 0-1 [HPF] 0-2 [facility] TSH DL <= 0.005 mIU/L QnOrde red By: Charan Casey on 08-13-2022 TSH Qn 1.91 m[IU]/L 0.45-5.33 [facility] Triglyceride [Mass/volume] i n Serum or PlasmaOrdered By: Charan Casey on 08-13-2022 Triglyceride [Mass/Vol] 207 mg/dL 35-149 [facility] Comment on above: TRIG ATP III CLASSIF ICATIONTRIG less than 150 mg/dL NormalTRIG 150-199 mg/dL Borderline highTRIG 200-500 mg/dL High TRIG greater than 500 mg/dL Very highStandard traceable to the Center for Disease Conrtrol and Prevention (CDC) test method. Urine bacteria detection by automated methodOrdered By: Elpidio Whipple on 08-13-2022 Bacteria Auto Ql (U) None seen None Seen [facility] Urine clarity by refractomet ry automatedOrdered By: Elpidio Whipple on 08-13-2022 Clarity Refractometry automated (U) Clear Clear [facility] Urine glucose measurement by automated test strip (mass/volume)Ordered By: Elpidio Whipple on 08-13-2022 Glucose Auto test strip (U) [Mass/Vol] Normal mg/dL Normal [facility] Urine hemoglobin detection b y automated test stripOrdered By: Elpidio Whipple on 08-13-2022 Hemoglobin Auto test strip Ql (U) Negative Negative [facility] Urine leukocyte esterase det ection by automated test stripOrdered By: Elpidio Whipple on 08-13-2022 Leukocyte esterase Auto test strip Ql (U) Negative Negative [facility] Urine protein/creatinine rat ioOrdered By: Elpidio Whipple on 08-13-2022 Protein/Creatinine (U) [Ratio] 55 mg/g{Cre} 0-200 [facility] Urobilinogen Auto test strip (U) [Mass/Vol]Ordered By: Elpidio Whipple on 08-13-2022 Urobilinogen (U) [Mass/Vol] Normal mg/dL Normal [facility] pH Auto test strip (U)Ordere d By: Elpidio Whipple on 08-13-2022 pH (U) 5.0 [pH] 5.0-9.0 [facility] Tobacco Screening.on 022 Adult depression screening assessment No [facility] [employer] 250 DO Work Phone: Fall risk assessment a) No falls within the last year [facility] [employer] DO Work Phone: Tobacco use status [facility]PH[facility] b) No [facility] [employer] 250 DO Work Phone: Laboratory - Chemistry and C hemistry - challengeon 03-25-2022 Cholesterol [Mass/Vol] 218\S\218 above hig h threshold 140-200 [facility] [employer] 250 DO Work Phone: Comment on above: Chol less than 200 m g/dl low risk Chol 201-239 mg/dl borderline risk Chol 240 mg/dl and greater high risk Cholesterol in LDL [Mass/Vol] 145\S\145 above high threshold 0-100 [facility] 250 DO Work Phone: Comment on above: LDL ATP III CLASSIFI CATION LDL less than 100 mg/dL Optimal LDL 100-129 mg/dL Near or above optimal LDL 130-159 mg/dL Borderline high LDL 160-189 mg/dL High LDL greater than 189 mg/dL Very high Laboratory - Microbiology an d Antimicrobial susceptibilityon 03-25-2022 SARS-CoV-2 (COVID-19) RNA AHMET+probe Ql (Unsp spec) [facility] 250 DO Work Phone: No Panel Informationon 03-25 40.2\S\40.2 Normal . [facility] 250 DO Work Phone: 9.2\S\9.2 Normal 6.3-10.7 [facility] 250 DO Work Phone: 200\S\200 Normal 150-450 [facility] 250 DO Work Phone: 13.5\S\13.5 Normal 11.9-15.3 [facility] 250 DO Work Phone: 34.0\S\34.0 Normal 32.0-35.0 [facility] 250 DO Work Phone: 29.0\S\29.0 Normal 24.7-34.3 [facility] 250 DO Work Phone: 2.0\S\2.0 Normal 1.8-7.7 [facility] 250 DO Work Phone: 0.1\S\0.1 Normal 0.0-0.45 [facility] 250 DO Work Phone: 0.6\S\0.6 Normal . [facility] 250 DO Work Phone: 2.9\S\2.9 Normal . [facility] 250 DO Work Phone: 7.1\S\7.1 Normal . [facility] 250 DO Work Phone: 49.2\S\49.2 Normal . [facility] 250 DO Work Phone: 0.0\S\0.0 Normal 0.0-0.2 [facility] 250 DO Work Phone: Comment on above: PERFORMED BY:[facility] [place], [place] [id number] MEDICAL DIRECTORJE SHELLEY M.D. 0.4\S\0.4 Normal 0.0-0.8 [facility] 250 DO Work Phone: 2.5\S\2.5 Normal 1.00-4.8 [facility] 250 DO Work Phone: 85.5\S\85.5 Normal 80-100 [facility] 250 DO Work Phone: 39.0\S\39.0 Normal 34.0-46.4 [facility] 250 DO Work Phone: 13.3\S\13.3 Normal 11.8-15.4 [facility] 250 DO Work Phone: 4.56\S\4.56 Normal 3.60-5.00 [facility] 250 DO Work Phone: 5.1\S\5.1 Normal 3.8-11.6 [facility] 250 DO Work Phone: 33.3\S\33.3 Normal 25.1-36.5 [facility] 250 DO Work Phone: Comment on above: PERFORMED BY:[facility] [place], [place] [phone] MEDICAL DIRECTORJE SHELLEY M.D. 1.0\S\1.0 Normal [facility] DO Work Phone: Comment on above: [...] valves: 3 - 4.5 10.9\S\10.9 Normal 9.0-12.9 [place] [address] DO Work Phone: 26.6\S\26.6 Normal 22.0-30.0 [place] [address] DO Work Phone: 104\S\104 Normal 95-114 [place] [address] DO Work Phone: 4.0\S\4.0 Normal 3.5-5.1 [place] [address] DO Work Phone: 140\S\140 Normal 136-146 [facility] 250 DO Work Phone: 18\S\18 Normal 9-23 [facility] DO Work Phone: 54\S\[address] [facility] 250 DO Work Phone: Comment on above: GFR estimated refere nce range: According to KDOQI guidelines, <60 ml/min/1.73m2 is sufficient to diagnose a patient with chronic kidney disease. 45\S\45 Normal [facility] 250 DO Work Phone: 1.22\S\1.22 above high threshold 0.44-1.03 [facility] 250 DO Work Phone: 6.4\S\6.4 Normal <5.0 [facility] 250 DO Work Phone: Comment on above: PERFORMED BY:[facility] [place]RADH[place], [place] [phone] MEDICAL DIRECTORJE SHELLEY M.D. 39\S\[address] [facility] 250 DO Work Phone: 197\S\197 above high threshold 35-149 [facility] 250 DO Work Phone: Comment on above: TRIG ATP III CLASSIF ICATION TRIG less than 150 mg/dL Normal TRIG 150-199 mg/dL Borderline high TRIG 200-500 mg/dL High TRIG greater than 500 mg/dL Very high Standard traceable to the Center for Disease Conrtrol and Prevention (CDC) test method. 34\S\34 below low threshold 35-85 [facility] 250 DO Work Phone: Comment on above: HDL CHOL ATP-III CLA SSIFICATION Cardiovascular Risk HDL > or equal to 60 mg/dL LOW HDL < 40 mg/dL HIGH Negative Normal Negative [place] [address] DO Work Phone: Comment on above: This is a duplicate Ashley SARS Antigen (PRISCILA) result to be used for statistical tracking purpose only.PERFORMED BY:[facility] [place], [place] [phone] MEDICAL DIRECTORJE SHELLEY M.D. CT Angio Coronary Arteries w ith Heart Flowon 03-11-2022 CT Angio Coronary Arteries with Heart Flow Normal [place] [address] DO Work Phone: CTA CORONARY ART WITH [...] R07.9: Chest pain. COMPARISON: None. ACCESSION NUMBER(S): [id number] ORDERING CLINICIAN: ROSALINDA TORRES TECHNIQUE: Using multi-detector [...] VALVE: The (more content not included)... Normal [facility] Tobacco Screening.on 022 Adult depression screening assessment No [facility] [employer] 250 DO Work Phone: Fall risk assessment a) No falls within the last year [facility] [employer] 250 DO Work Phone: Tobacco use status CPHS b) No M [facility] 250 DO Work Phone: SURGICAL PATHOLOGYon SURGICAL PATHOLOGY Specimen #: [id number] Physician: REUBEN CRAVEN M.D. FINAL DIAGNOSIS1. 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 Skin, left upper arm, shave biopsy ([id number]; 07/20/2018) - Intradermal nevus, neurotized (see comment).AF/CE/dss [...] for MART-1 and S100 [facility]. These [...] consultation. Please call theDermatopathology Consultation Service at [phone] with questions or ifadditional follow-up information becomes available regarding this patient.This case was reviewed in conjunction with the Dermatopathology Fellow, Dr.Carly Marija MD.Donald Zavaleta M.D. PhD(Electronic Signature) SPECIME N SUBMITTEDA: 11 SLIDES ([id number]) CLINICAL DATANone provided. of Report: 07/26/2018Date of Procedure: 07/23/2018Date of Receipt: 07/23/2018Submitted by: REUBEN CRAVEN M.D.Location: [id number] interpretation performed at [facility], [address] [place] [address]. Normal [facility] Comment on above: Performed By: #### S ####See report for performing lab information. Vital Signs Date Time Vital Sign Value Performing Clinician Facility 07-27-2025 08:13-0400 Body height 167.6 cm Shaina Petznick DO Work Phone: [facility] 07-27-2025 08:13-0400 Body temperature 97.5 [degF] Shaina Petznick DO Work Phone: [facility] 07-27-2025 08:13-0400 Diastolic blood pressure 62 mm[Hg] Shaina Petznick DO Work Phone: [facility] 07-27-2025 08:13-0400 Heart rate 65 /min Shaina Petznick DO Work Phone: [facility] 07-27-2025 08:13-0400 SaO2% (BldA) [Mass fraction] 98 % Shaina Petznick DO Work Phone: [facility] 07-27-2025 08:13-0400 Systolic blood pressure 122 mm[Hg] Shaina Petznick DO Work Phone: [facility] 07-12-2025 08:20-0400 Body temperature 97.8 [degF] Charan Casey DO Work Phone: [facility] 07-12-2025 08:20-0400 Diastolic blood pressure 60 mm[Hg] Charan Casey DO Work Phone: [facility] 07-12-2025 08:20-0400 Heart rate 70 /min Charan Masseys DO Work Phone: [facility] 07-12-2025 08:20-0400 Respiratory rate 16 /min Charan Masseys DO Work Phone: [facility] 07-12-2025 08:20-0400 SaO2% (BldA) [Mass fraction] 97 % Charan Casey DO Work Phone: [facility] 07-12-2025 08:20-0400 Systolic blood pressure 116 mm[Hg] Charan Masseys DO Work Phone: [facility] 05-15-2025 10:29-0400 Body height 167.6 cm Shaina Petznick DO Work Phone: [facility] 05-15-2025 10:29-0400 Body mass index (BMI) [Ratio] 35.86 kg/m2 Shaina Petznick DO Work Phone: [facility] 05-15-2025 10:29-0400 Body temperature 97.2 [degF] Shaina Petznick DO Work Phone: [facility] 05-15-2025 10:29-0400 Body weight 100.79 kg Shaina Petznick DO Work Phone: [facility] 05-15-2025 10:29-0400 Diastolic blood pressure 76 mm[Hg] Shaina Petznick DO Work Phone: [facility] 05-15-2025 10:29-0400 Heart rate 67 /min Shaina Petznick DO Work Phone: [facility] 05-15-2025 10:29-0400 SaO2% (BldA) [Mass fraction] 98 % Shaina Petznick DO Work Phone: [facility] 05-15-2025 10:29-0400 Systolic blood pressure 110 mm[Hg] Shaina Petznick DO Work Phone: [facility] 03-06-2025 08:09-0400 Body height 170.18 cm Charan Masseys DO Work Phone: [facility] 03-06-2025 08:09-0400 Body mass index (BMI) [Ratio] 35.4 kg/m2 Charan Masseys DO Work Phone: [facility] 03-06-2025 08:09-0400 Body weight 102.51 kg Charan Masseys DO Work Phone: [facility] 03-06-2025 08:09-0400 Respiratory rate 16 /min Charan Masseys DO Work Phone: [facility] 03-06-2025 08:09-0400 SaO2% (BldA) [Mass fraction] 98 % Charan Masseys DO Work Phone: [facility] 02-16-2025 09:35-0400 Body height 170.18 cm Charan Masseys DO Work Phone: [facility] 02-16-2025 09:35-0400 Body mass index (BMI) [Ratio] 36.5 kg/m2 Charan Masseys DO Work Phone: [facility] 02-16-2025 09:35-0400 Body weight 105.68 kg Charan Masseys DO Work Phone: [facility] 01-09-2025 10:01-0500 Body height 170.18 cm Charan Masseys DO Work Phone: [facility] 01-09-2025 10:01-0500 Body mass index (BMI) [Ratio] 36.5 kg/m2 Charan Masseys DO Work Phone: [facility] 01-09-2025 10:01-0500 Body weight 105.68 kg Charan Masseys DO Work Phone: [facility] 01-09-2025 10:01-0500 Diastolic blood pressure 84 mm[Hg] Charanheather Masseys DO Work Phone: [facility] 01-09-2025 10:01-0500 Heart rate 69 /min Charan Masseys DO Work Phone: [facility] 01-09-2025 10:01-0500 Respiratory rate 16 /min Charan Masseys DO Work Phone: [facility] 01-09-2025 10:01-0500 SaO2% (BldA) [Mass fraction] 98 % Charan Masseys DO Work Phone: [facility] 01-09-2025 10:01-0500 Systolic blood pressure 124 mm[Hg] Charan Masseys DO Work Phone: [facility] 12-09-2024 10:39-0500 Body height 170.18 cm Charan Masseys DO Work Phone: [facility] 12-09-2024 10:39-0500 Body mass index (BMI) [Ratio] 36.1 kg/m2 Charan Masseys DO Work Phone: [facility] 12-09-2024 10:39-0500 Body temperature 98.4 [degF] Charan Masseys DO Work Phone: [facility] 12-09-2024 10:39-0500 Body weight 104.77 kg Charan Masseys DO Work Phone: [facility] 12-09-2024 10:39-0500 Diastolic blood pressure 66 mm[Hg] Charan Masseys DO Work Phone: [facility] 12-09-2024 10:39-0500 Heart rate 78 /min Charan Brysons DO Work Phone: [facility] 12-09-2024 10:39-0500 Respiratory rate 16 /min Charan Masseys DO Work Phone: [facility] 12-09-2024 10:39-0500 SaO2% (BldA) [Mass fraction] 97 % Charan Brysons DO Work Phone: [facility] 12-09-2024 10:39-0500 Systolic blood pressure 130 mm[Hg] Charan Masseys DO Work Phone: [facility] 2024 09:30-0500 Diastolic blood pressure 83 mm[Hg] Charan Masseys DO Work Phone: [facility] 2024 09:30-0500 Heart rate 65 /min Charan Masseys DO Work Phone: [facility] 2024 09:30-0500 Respiratory rate 16 /min Charan Masseys DO Work Phone: [facility] 2024 09:30-0500 SaO2% (BldA) [Mass fraction] 99 % Charan Masseys DO Work Phone: [facility] 2024 09:30-0500 Systolic blood pressure 164 mm[Hg] Charan Masseys DO Work Phone: [facility] 2024 08:48-0500 Inhaled oxygen flow rate 3 L/min Charan Masseys DO Work Phone: [facility] 2024 07:38-0500 Body height 170.18 cm Charan Masseys DO Work Phone: [facility] 2024 07:38-0500 Body weight 108.86 kg Charan Masseys DO Work Phone: [facility] 10-19-2024 08:13-0500 Body weight 109.88 kg Charan Masseys DO Work Phone: [facility] 10-17-2024 13:12-0500 Body height 167.6 cm Shaina Petfelipeick DO Work Phone: [facility] 10-17-2024 13:12-0500 Body mass index (BMI) [Ratio] 39.06 kg/m2 Shaina Petznick DO Work Phone: [facility] 10-17-2024 13:12-0500 Body temperature 97.3 [degF] Shaina Petznick DO Work Phone: [facility] 10-17-2024 13:12-0500 Body weight 109.77 kg Shaina Petznick DO Work Phone: [facility] 10-17-2024 13:12-0500 Diastolic blood pressure 68 mm[Hg] Shaina Petznick DO Work Phone: [facility] 10-17-2024 13:12-0500 Heart rate 78 /min Shaina Petznick DO Work Phone: [facility] 10-17-2024 13:12-0500 SaO2% (BldA) [Mass fraction] 96 % Shaina Petznick DO Work Phone: [facility] 10-17-2024 13:12-0500 Systolic blood pressure 128 mm[Hg] Shaina Petznick DO Work Phone: [facility] 09-20-2024 10:28-0400 Diastolic blood pressure 76 mm[Hg] DO Charan Masseys Work Phone: [facility] 09-20-2024 10:28-0400 Heart rate 68 /min DO Charan Masseys Work Phone: [facility] 09-20-2024 10:28-0400 Respiratory rate 16 /min DO Charan Masseys Work Phone: [facility] 09-20-2024 10:28-0400 SaO2% (BldA) [Mass fraction] 95 % DO Charan Brysons Work Phone: [facility] 09-20-2024 10:28-0400 Systolic blood pressure 157 mm[Hg] DO Charan Kuns Work Phone: [facility] 09-20-2024 09:50-0400 Inhaled oxygen flow rate 3 L/min DO Charan Brysons Work Phone: [facility] 09-20-2024 08:38-0400 Body height 170.18 cm DO Charan Casey Work Phone: [facility] 09-20-2024 08:38-0400 Body weight 107.95 kg DO Charanheather Casey Work Phone: [facility] 08-25-2024 08:35-0400 Body height 170.2 cm Rosalinda Torres MD Work Phone: [facility] 08-25-2024 08:35-0400 Body mass index (BMI) [Ratio] 37.75 kg/m2 Rosalinda Torres MD Work Phone: [facility] 08-25-2024 08:35-0400 Body weight 109.32 kg Rosalinda Torres MD Work Phone: [facility] 08-25-2024 08:35-0400 Diastolic blood pressure 80 mm[Hg] Rosalinda Torres MD Work Phone: [facility] 08-25-2024 08:35-0400 Heart rate 80 /min Rosalinda Torres MD Work Phone: [facility] 08-25-2024 08:35-0400 Systolic blood pressure 130 mm[Hg] Rosalinda Torres MD Work Phone: [facility] 06-08-2024 15:44-0400 Body height 170.18 cm DO Charan Casey Work Phone: [facility] 06-08-2024 15:44-0400 Body mass index (BMI) [Ratio] 37 kg/m2 DO Charan Casey Work Phone: [facility] 06-08-2024 15:44-0400 Body weight 107.5 kg DO Charan Casey Work Phone: [facility] 06-08-2024 15:44-0400 Diastolic blood pressure 76 mm[Hg] DO Charan Casey Work Phone: [facility] 06-08-2024 15:44-0400 Heart rate 95 /min DO Charan Brysons Work Phone: [facility] 06-08-2024 15:44-0400 SaO2% (BldA) [Mass fraction] 96 % DO Charan Brysons Work Phone: [facility] 06-08-2024 15:44-0400 Systolic blood pressure 151 mm[Hg] DO Charan Kuns Work Phone: [facility] 05-31-2024 11:30-0400 Diastolic blood pressure 78 mm[Hg] DO Charan Kuns Work Phone: [facility] 05-31-2024 11:30-0400 Heart rate 68 /min DO Charan Brysons Work Phone: [facility] 05-31-2024 11:30-0400 Respiratory rate 16 /min DO Charan Masseys Work Phone: [facility] 05-31-2024 11:30-0400 SaO2% (BldA) [Mass fraction] 98 % DO Charanheather Masseys Work Phone: [facility] 05-31-2024 11:30-0400 Systolic blood pressure 152 mm[Hg] DO Charanheather Masseys Work Phone: [facility] 05-31-2024 10:53-0400 Inhaled oxygen flow rate 3 L/min DO Charanheather Masseys Work Phone: [facility] 05-31-2024 10:09-0400 Body height 170.18 cm DO Charan Brysons Work Phone: [facility] 05-31-2024 10:09-0400 Body weight 108.86 kg DO Charan Kuns Work Phone: [facility] 03-01-2024 09:31-0400 Body height 170.18 cm DO Charan Kuns Work Phone: [facility] 03-01-2024 09:31-0400 Body mass index (BMI) [Ratio] 37.4 kg/m2 DO Charan Casey Work Phone: [facility] 03-01-2024 09:31-0400 Body temperature 96.8 [degF] DO Charanheather Casey Work Phone: [facility] 03-01-2024 09:31-0400 Body weight 108.4 kg DO Charanheather Casey Work Phone: [facility] 03-01-2024 09:31-0400 Diastolic blood pressure 83 mm[Hg] DO Charan Casey Work Phone: [facility] 03-01-2024 09:31-0400 Heart rate 88 /min DO Charan Casey Work Phone: [facility] 03-01-2024 09:31-0400 Respiratory rate 16 /min DO Charan Casey Work Phone: [facility] 03-01-2024 09:31-0400 SaO2% (BldA) [Mass fraction] 98 % DO Charan Casey Work Phone: [facility] 03-01-2024 09:31-0400 Systolic blood pressure 146 mm[Hg] DO Charan Casey Work Phone: [facility] 02-22-2024 14:26-0400 Body height 170.2 cm Rosalinda Torres MD Work Phone: [facility] 02-22-2024 14:26-0400 Body mass index (BMI) [Ratio] 37.12 kg/m2 Rosalinda Torres MD Work Phone: [facility] 02-22-2024 14:26-0400 Body weight 107.5 kg Rosalinda Torres MD Work Phone: [facility] 02-22-2024 14:26-0400 Diastolic blood pressure 60 mm[Hg] Rosalinda Torres MD Work Phone: [facility] 02-22-2024 14:26-0400 Heart rate 84 /min Rosalinda Torres MD Work Phone: [facility] 02-22-2024 14:26-0400 Systolic blood pressure 130 mm[Hg] Rosalinda Torres MD Work Phone: [facility] 12-30-2023 13:00-0500 Body height 170.18 cm Charan Casey Other [facility] 12-30-2023 13:00-0500 Body mass index (BMI) [Ratio] 37.59 kg/m2 Charan Casey Other [employer] Other 12-30-2023 13:00-0500 Body temperature 98.3 [degF] Charan Casey Other [employer] Other 12-30-2023 13:00-0500 Body weight 108.86 kg Charan Casey Other [facility] 12-30-2023 13:00-0500 Diastolic blood pressure 80 mm[Hg] Charan Casey Other [facility] 12-30-2023 13:00-0500 Respiratory rate 18 /min Charan Casey Other [employer] Other 12-30-2023 13:00-0500 SaO2% (BldA) [Mass fraction] 96 % Charan Casey Other [employer] Other 12-30-2023 13:00-0500 Systolic blood pressure 150 mm[Hg] Charan Casey Other [facility] 10-21-2023 12:45-0500 Body height 170.18 cm Blas Bellamy Other [employer] Other 10-21-2023 12:45-0500 Body mass index (BMI) [Ratio] 37.43 kg/m2 Blas Bellamy Other [employer] Other 10-21-2023 12:45-0500 Body temperature 97.6 [degF] Blas Bellamy Other [employer] Other 10-21-2023 12:45-0500 Body weight 108.41 kg Blas Bellaym Other [employer] Other 10-21-2023 12:45-0500 Diastolic blood pressure 90 mm[Hg] Blas Bellamy Other [employer] Other 10-21-2023 12:45-0500 Respiratory rate 18 /min Blas Bellamy Other [employer] Other 10-21-2023 12:45-0500 SaO2% (BldA) [Mass fraction] 96 % Blas Bellamy Other [employer] Other 10-21-2023 12:45-0500 Systolic blood pressure 143 mm[Hg] Blas Bellamy Other [employer] Other 10-06-2023 09:04-0500 Diastolic blood pressure 74 mm[Hg] DO Charan Masseys Work Phone: [facility] 10-06-2023 09:04-0500 Heart rate 76 /min DO Charan Brysons Work Phone: [facility] 10-06-2023 09:04-0500 Respiratory rate 16 /min DO Charan Kuns Work Phone: [facility] 10-06-2023 09:04-0500 SaO2% (BldA) [Mass fraction] 96 % DO Charan Brysons Work Phone: [facility] 10-06-2023 09:04-0500 Systolic blood pressure 159 mm[Hg] DO Charan Casey Work Phone: [facility] 10-06-2023 07:01-0500 Body height 170.18 cm DO Charan Casey Work Phone: [facility] 10-06-2023 07:01-0500 Body weight 106.59 kg DO Charan Casey Work Phone: [facility] 09-15-2023 10:20-0400 Body height 170.18 cm Elpidio Sole Other [employer] Other 09-15-2023 10:20-0400 Body mass index (BMI) [Ratio] 37.46 kg/m2 Elpidio Sole Other [employer] Other 09-15-2023 10:20-0400 Body temperature 97.2 [degF] Elpidio Sole Other [employer] Other 09-15-2023 10:20-0400 Body weight 108.5 kg Elpidio Sole Other [employer] Other 09-15-2023 10:20-0400 Diastolic blood pressure 80 mm[Hg] Elpidio Sole Other [employer] Other 09-15-2023 10:20-0400 Respiratory rate 18 /min Elpidio Sole Other [employer] Other 09-15-2023 10:20-0400 SaO2% (BldA) [Mass fraction] 99 % Elpidio Sole Other [employer] Other 09-15-2023 10:20-0400 Systolic blood pressure 140 mm[Hg] Elpidiorohan Zarater Other [facility] [employer] Other 09-08-2023 09:00-0400 Diastolic blood pressure 88 mm[Hg] DO Charan Casey Work Phone: [facility] 09-08-2023 09:00-0400 Heart rate 69 /min DO Charan SocialPandasbryn Work Phone: [facility] 09-08-2023 09:00-0400 Respiratory rate 16 /min DO Charan Casey Work Phone: [facility] 09-08-2023 09:00-0400 SaO2% (BldA) [Mass fraction] 96 % DO Charan Casey Work Phone: [facility] 09-08-2023 09:00-0400 Systolic blood pressure 146 mm[Hg] DO Charan Casey Work Phone: [facility] 09-08-2023 08:17-0400 Inhaled oxygen flow rate 3 L/min DO Charan Casey Work Phone: [facility] 09-08-2023 07:21-0400 Body height 170.18 cm DO Charan Casey Work Phone: [facility] 09-08-2023 07:21-0400 Body weight 108.86 kg DO Charan Casey Work Phone: [facility] 08-17-2023 09:30-0400 Body height 170.18 cm Blas Ortiz Other [employer] Other 08-17-2023 09:30-0400 Body mass index (BMI) [Ratio] 38.06 kg/m2 Blas Ortiz Other [employer] Other 08-17-2023 09:30-0400 Body weight 110.22 kg Blas Ortiz Other [employer] Other 08-11-2023 09:20-0400 Body height 170.18 cm Thierno Shena Other [employer] Other 08-11-2023 09:20-0400 Body mass index (BMI) [Ratio] 38.06 kg/m2 Thierno Chatterjee Other [employer] Other 08-11-2023 09:20-0400 Body weight 110.22 kg Thierno Chatterjee Other [employer] Other 08-11-2023 09:20-0400 Diastolic blood pressure 90 mm[Hg] Thierno Chatterjee Other [employer] Other 08-11-2023 09:20-0400 Systolic blood pressure 152 mm[Hg] Thierno Chatterjee Other [employer] Other 08-05-2023 08:15-0400 Body height 170.18 cm Charan Casey Other [employer] Other 08-05-2023 08:15-0400 Body mass index (BMI) [Ratio] 38.21 kg/m2 Charan Casey Other [employer] Other 08-05-2023 08:15-0400 Body weight 110.68 kg Charan Casey Other [employer] Other 08-05-2023 08:15-0400 Diastolic blood pressure 60 mm[Hg] Charan Casey Other [employer] Other 08-05-2023 08:15-0400 Respiratory rate 18 /min Charan Casey Other [employer] Other 08-05-2023 08:15-0400 SaO2% (BldA) [Mass fraction] 95 % Charan Casey Other [employer] Other 08-05-2023 08:15-0400 Systolic blood pressure 126 mm[Hg] Charan Casey Other [employer] Other 05-19-2023 12:30-0400 Body height 170.18 cm Charan Casey Other [employer] Other 05-19-2023 12:30-0400 Diastolic blood pressure 74 mm[Hg] Charan Casey Other [employer] Other 05-19-2023 12:30-0400 Respiratory rate 18 /min Charan Casey Other [employer] Other 05-19-2023 12:30-0400 SaO2% (BldA) [Mass fraction] 97 % Charan Casey Other [employer] Other 05-19-2023 12:30-0400 Systolic blood pressure 140 mm[Hg] Charan Casey Other [employer] Other 04-30-2023 10:17-0400 Body height 170.18 cm Charan Casey Work Phone: true[x] [employer] / ?.?? 250 DO Work Phone: 04-30-2023 10:17-0400 Body mass index (BMI) [Ratio] Medical Reason Not Done Charan Casey Work Phone: [employer]] [employer] / ?.?? 250 DO Work Phone: 04-30-2023 10:17-0400 Diastolic blood pressure 64 mm[Hg] Charan Casey Work Phone: [facility] [employer] 250 DO Work Phone: 04-30-2023 10:17-0400 Heart rate 72 /min Charan Casey Work Phone: [facility] [employer] 250 DO Work Phone: 04-30-2023 10:17-0400 Systolic blood pressure 128 mm[Hg] Charan Casey Work Phone: [facility] [employer] 250 DO Work Phone: 03-31-2023 15:30-0400 Body height 170.18 cm Charan Casey Other [employer] Other 03-31-2023 15:30-0400 Diastolic blood pressure 64 mm[Hg] Charan Casey Other [employer] Other 03-31-2023 15:30-0400 Respiratory rate 18 /min Charan Casey Other [employer] Other 03-31-2023 15:30-0400 SaO2% (BldA) [Mass fraction] 98 % Charan Casey Other [employer] Other 03-31-2023 15:30-0400 Systolic blood pressure 126 mm[Hg] Charan Casey Other [employer] Other 03-10-2023 15:40-0400 Body height 170.18 cm Elpidio Sole Other [employer] Other 03-10-2023 15:40-0400 Diastolic blood pressure 86 mm[Hg] Elpidio Sole Other [employer] Other 03-10-2023 15:40-0400 Respiratory rate 16 /min Elpidio Sole Other [employer] Other 03-10-2023 15:40-0400 SaO2% (BldA) [Mass fraction] 99 % Elpidio Sole Other [employer] Other 03-10-2023 15:40-0400 Systolic blood pressure 135 mm[Hg] Elpidio Sole Other [employer] Other 03-04-2023 15:00-0400 Body height 170.18 cm Williamer Coco Other [employer] Other 03-04-2023 15:00-0400 Body mass index (BMI) [Ratio] 37.43 kg/m2 Williamer Coco Other [employer] Other 03-04-2023 15:00-0400 Body weight 108.41 kg Christbryoner Coco Other [employer] Other 03-04-2023 15:00-0400 Diastolic blood pressure 83 mm[Hg] Williamer Coco Other [employer] Other 03-04-2023 15:00-0400 SaO2% (BldA) [Mass fraction] 98 % Christbryoner Coco Other [employer] Other 03-04-2023 15:00-0400 Systolic blood pressure 157 mm[Hg] Kumaropher Coco Other [employer] Other 09-24-2022 16:00-0400 Body height 170.18 cm Elpidio Sole Other [employer] Other 09-24-2022 16:00-0400 Body mass index (BMI) [Ratio] 37.37 kg/m2 Elpidio Sole Other [employer] Other 09-24-2022 16:00-0400 Body temperature 96.4 [degF] Elpidio Sole Other [employer] Other 09-24-2022 16:00-0400 Body weight 108.23 kg Elpidio Sole Other [employer] Other 09-24-2022 16:00-0400 Diastolic blood pressure 64 mm[Hg] Elpidio Sole Other [employer] Other 09-24-2022 16:00-0400 Respiratory rate 16 /min Elpidio Sole Other [employer] Other 09-24-2022 16:00-0400 SaO2% (BldA) [Mass fraction] 98 % Elpidio Sole Other [employer] Other 09-24-2022 16:00-0400 Systolic blood pressure 120 mm[Hg] Elpidio Sole Other [employer] Other 09-02-2022 14:00-0400 Body height 170.18 cm Charan Casey Other [employer] Other 09-02-2022 14:00-0400 Body mass index (BMI) [Ratio] 37.9 kg/m2 Charan Casey Other [employer] Other 09-02-2022 14:00-0400 Body weight 109.77 kg Charan Casey Other [employer] Other 09-02-2022 14:00-0400 Diastolic blood pressure 70 mm[Hg] Charan Casey Other [employer] Other 09-02-2022 14:00-0400 Respiratory rate 16 /min Charan Casey Other [employer] Other 09-02-2022 14:00-0400 SaO2% (BldA) [Mass fraction] 97 % Charan Casey Other [employer] Other 09-02-2022 14:00-0400 Systolic blood pressure 112 mm[Hg] Charan Casey Other [employer] Other 07-27-2022 19:56-0400 Body height 170.18 cm DO Charan Masseys Work Phone: [facility] 07-27-2022 19:56-0400 Body temperature 99.1 [degF] DO Charan Masseys Work Phone: [facility] 07-27-2022 19:56-0400 Body weight 110.55 kg DO Charan Kuns Work Phone: [facility] 07-27-2022 19:56-0400 Diastolic blood pressure 81 mm[Hg] DO Charan Kuns Work Phone: [facility] 07-27-2022 19:56-0400 Heart rate 89 /min DO Charan Kuns Work Phone: [facility] 07-27-2022 19:56-0400 Respiratory rate 20 /min DO Charan Brysons Work Phone: [facility] 07-27-2022 19:56-0400 SaO2% (BldA) [Mass fraction] 98 % DO Charan Casey Work Phone: [facility] 07-27-2022 19:56-0400 Systolic blood pressure 142 mm[Hg] DO Charanheather Casey Work Phone: [facility] 05-08-2022 08:51-0400 Body height 170.18 cm Charan Louise Jacinto Work Phone: [facility] 250 DO Work Phone: 05-08-2022 08:51-0400 Body mass index (BMI) [Ratio] 38.06 kg/m2 Charan Dani Casey Work Phone: [facility] 250 DO Work Phone: 05-08-2022 08:51-0400 Body surface area Derived from formula 2.2 m2 Charan Dani Casey Work Phone: [facility] 250 DO Work Phone: 05-08-2022 08:51-0400 Body weight 110.22 kg Charan Dani Casey Work Phone: [facility] 250 DO Work Phone: 05-08-2022 08:51-0400 Diastolic blood pressure 70 mm[Hg] Charan Louise Jacinto Work Phone: [facility] 250 DO Work Phone: 05-08-2022 08:51-0400 Heart rate 72 /min Charan Masseybryn Work Phone: [facility] 250 DO Work Phone: 05-08-2022 08:51-0400 Systolic blood pressure 136 mm[Hg] Charan Casey Work Phone: [facility] 250 DO Work Phone: 04-30-2022 17:00-0400 Body height 170.18 cm Federico Sepulveda Other [employer] Other 04-30-2022 17:00-0400 Body mass index (BMI) [Ratio] 38.52 kg/m2 Federico Hanno Other [employer] Other 04-30-2022 17:00-0400 Body temperature 97.1 [degF] Kumarbryonerika Coco Other [employer] Other 04-30-2022 17:00-0400 Body weight 111.59 kg Williamerika BucknerCoco Other [employer] Other 04-30-2022 17:00-0400 Diastolic blood pressure 86 mm[Hg] Federico Hanno Other [employer] Other 04-30-2022 17:00-0400 SaO2% (BldA) [Mass fraction] 97 % Federico Hanno Other [employer] Other 04-30-2022 17:00-0400 Systolic blood pressure 148 mm[Hg] Federico Bucknerdano Other [employer] Other 04-14-2022 11:30-0400 Body height 170.18 cm Charan Casey Other [employer] Other 04-14-2022 11:30-0400 Body mass index (BMI) [Ratio] 38.52 kg/m2 Charan Casey Other [employer] Other 04-14-2022 11:30-0400 Body weight 111.59 kg Charan Casey Other [employer] Other 04-14-2022 11:30-0400 Diastolic blood pressure 70 mm[Hg] Charan Casey Other [employer] Other 04-14-2022 11:30-0400 Respiratory rate 16 /min Charan Casey Other [employer] Other 04-14-2022 11:30-0400 SaO2% (BldA) [Mass fraction] 99 % Charan Casey Other [employer] Other 04-14-2022 11:30-0400 Systolic blood pressure 126 mm[Hg] Charan Casey Other [employer] Other 02-20-2022 17:00-0400 Body mass index (BMI) [Ratio] 38.56 kg/m2 Elpidio Sole Other [employer] Other 02-20-2022 17:00-0400 Body temperature 97.2 [degF] Elpidio Sole Other [employer] Other 02-20-2022 17:00-0400 Body weight 111.68 kg Elpidio Sole Other [employer] Other 02-20-2022 17:00-0400 Diastolic blood pressure 79 mm[Hg] Elpidio Sole Other [employer] Other 02-20-2022 17:00-0400 Respiratory rate 18 /min Elpidio Sole Other [employer] Other 02-20-2022 17:00-0400 SaO2% (BldA) [Mass fraction] 98 % Elpidio Sole Other [facility] [employer] Other 02-20-2022 17:00-0400 Systolic blood pressure 134 mm[Hg] Elpidio Sole Other [facility] [employer] Other 02-20-2022 12:28-0400 Body height 170.18 cm Charan Casey Work Phone: [facility] 250 DO Work Phone: 02-20-2022 12:28-0400 Body mass index (BMI) [Ratio] 38.37 kg/m2 Charan Casey Work Phone: [facility] 250 DO Work Phone: 02-20-2022 12:28-0400 Body surface area Derived from formula 2.2 m2 Charan Casey Work Phone: [facility] 250 DO Work Phone: 02-20-2022 12:28-0400 Body weight 111.13 kg Charan Casey Work Phone: [facility] 250 DO Work Phone: 02-20-2022 12:28-0400 Diastolic blood pressure 71 mm[Hg] Charan Casey Work Phone: [facility] 250 DO Work Phone: 02-20-2022 12:28-0400 Heart rate 72 /min Charan Casey Work Phone: [facility] 250 DO Work Phone: 02-20-2022 12:28-0400 Systolic blood pressure 131 mm[Hg] Charan Casey Work Phone: [facility] 250 DO Work Phone: 02-07-2022 09:45-0500 Body height 170.18 cm Charan Casey Other [facility] [employer] Other 02-07-2022 09:45-0500 Body mass index (BMI) [Ratio] 38.27 kg/m2 Charan Casey Other [facility] [employer] Other 02-07-2022 09:45-0500 Body weight 110.86 kg Charan Casey Other [facility] [employer] Other 02-07-2022 09:45-0500 Diastolic blood pressure 82 mm[Hg] Charan Casey Other [facility] [employer] Other 02-07-2022 09:45-0500 Respiratory rate 18 /min Charan Casey Other [facility] [employer] Other 02-07-2022 09:45-0500 SaO2% (BldA) [Mass fraction] 95 % Charan Casey Other [facility] [employer] Other 02-07-2022 09:45-0500 Systolic blood pressure 148 mm[Hg] Charan Casey Other [facility] [employer] Other 12-31-2021 17:20-0500 Body height 170.18 cm Thierno Chatterjee Other [facility] Other 12-31-2021 17:20-0500 Body mass index (BMI) [Ratio] 38.84 kg/m2 Thierno Chatterjee Other [employer] Other 12-31-2021 17:20-0500 Body weight 112.49 kg Thierno Chatterjee Other [employer] Other 12-03-2021 15:00-0500 Body height 170.18 cm Charan Casey Other [employer] Other 10-01-2021 17:15-0400 Body height 170.18 cm Blas Maurererika Other [facility] [employer] Other Encounters Encounter Date Encounter Type Care Provider Facility Start: 07-27-2025 End: 07-27-2025 Bamboo flowsheet Shaina Munroe DO Work Phone: [facility] 230 Start: 07-27-2025 End: 07-27-2025 BamXenon Arco flowsheet Shaina Munroe DO Work Phone: [facility] 230 Start: 07-27-2025 End: 07-27-2025 Office outpatient visit 25 minutes Shaina Munroe DO Work Phone: [facility] 230 Comment on above: Type 2 diabetes [...] 07-12-2025 ambulatory Charan Casey DO Work Phone: [facility] Work Phone: Start: 07-12-2025 End: 07-12-2025 Patient encounter procedure Charan Louise DO -[facility] Work Phone: Start: 06-30-2025 Non-patient / Non-visit Karla Lyons MD -[facility] Work Phone: Start: 06-29-2025 Non-patient / Non-visit Karla Lyons MD -[facility] Work Phone: Start: 06-28-2025 Non-patient / Non-visit Gustavo Mason BASSETT -[facility] Work Phone: Start: 06-21-2025 End: 06-21-2025 ambulatory Charan Casey DO Work Phone: [facility] Work Phone: Start: 06-21-2025 End: 06-21-2025 Patient encounter procedure Blas Louise MD -[facility] Work Phone: Start: 06-14-2025 Non-patient / Non-visit Blas Louies MD -[facility] Work Phone: Start: 06-14-2025 End: 06-14-2025 ambulatory Charan Casey DO Work Phone: [facility] Work Phone: Start: 06-14-2025 End: 06-14-2025 Patient encounter procedure Blas Louise MD [facility] Work Phone: Start: 06-05-2025 End: 06-05-2025 Patient encounter procedure Acosta Castro DPM [place] -[facility] Start: 06-05-2025 End: 06-05-2025 ambulatory Charan Jacinto DO Work Phone: [facility] Work Phone: Start: 05-31-2025 End: 05-31-2025 ambulatory Charan Masseys DO Work Phone: [facility] Work Phone: Start: 05-31-2025 End: 05-31-2025 Patient encounter procedure Blas Louise MD -[facility] Work Phone: Start: 05-15-2025 End: 05-15-2025 Office outpatient visit 25 minutes Shaina M Ludwig DO Work Phone: [facility] 230 Comment on above: Type 2 diabetes [...] (BMI) of 35.0 to 35.9 in adult ([facility]) Start: 05-15-2025 End: 05-15-2025 ambulatory SHAINA NELSONALFREDO Not Available Start: 03-06-2025 End: 03-06-2025 ambulatory Charan Casey DO Work Phone: [facility] Work Phone: Start: 03-06-2025 End: 03-06-2025 Patient encounter procedure Charan Casey DO Work Phone: [facility] Work Phone: Start: 02-16-2025 End: 02-16-2025 ambulatory Charan Casey DO Work Phone: [facility] Work Phone: Start: 02-16-2025 End: 02-16-2025 Patient encounter procedure Charan Casey DO Work Phone: [facility] Work Phone: Start: 02-14-2025 End: 02-14-2025 ambulatory SHAINA M LUDWIG Not Available Start: 02-01-2025 Non-patient / Non-visit Charan Casey DO Work Phone: [facility] Work Phone: Start: 02-01-2025 End: 02-01-2025 ambulatory Charan Kuns DO Work Phone: [facility] Work Phone: Start: 02-01-2025 End: 02-01-2025 Patient encounter procedure [facility]an Casey DO [facility] Start: 01-31-2025 End: 01-31-2025 ambulatory Charan Casey DO Work Phone: [facility] Work Phone: Start: 01-31-2025 End: 01-31-2025 Discharged Recurring Charan Casey DO Work Phone: [facility]-Physical Therapy [place] Start: 01-31-2025 Registered Recurring Charan clemente DO Work Phone: [facility] [place] Start: 01-26-2025 End: 01-26-2025 ambulatory Charan Casey DO Work Phone: [facility] Work Phone: Start: 01-26-2025 End: 01-26-2025 Patient encounter procedure Charan Casey DO Work Phone: [facility] Work Phone: Start: 01-26-2025 Registered Recurring Charan clemente DO Work Phone: [facility]-Physical Therapy [place] Start: 01-23-2025 End: 01-23-2025 Patient encounter procedure Charan Casey DO Work Phone: [facility]-MRI [address] [facility] Work Phone: Start: 01-23-2025 End: 01-23-2025 ambulatory Charanheather Casey DO Work Phone: [facility] Work Phone: Start: 01-18-2025 End: 01-18-2025 ambulatory Charan Casey DO Work Phone: [facility] Work Phone: Start: 01-18-2025 End: 01-18-2025 Patient encounter procedure Charan Casey DO Work Phone: [facility] Work Phone: Start: 01-13-2025 Registered Recurring Charan Massey s DO Work Phone: [facility]-Physical Therapy [place] Start: 01-09-2025 End: 01-09-2025 Telephone encounter Shaina Munroe DO Work Phone: [facility] 230 Start: 01-09-2025 Non-patient / Non-visit Charan Casey DO Work Phone: [facility] Work Phone: Start: 01-09-2025 End: 01-09-2025 ambulatory Charan Casey DO Work Phone: [facility] Work Phone: Start: 01-09-2025 End: 01-09-2025 Patient encounter procedure Charan Casey DO Work Phone: [facility] Work Phone: Start: 01-03-2025 Registered Recurring Charan clemente DO Work Phone: [facility]-Physical Therapy [place] Start: 12-29-2024 End: 12-29-2024 ambulatory Charan Casey DO Work Phone: [facility] Work Phone: Start: 12-29-2024 End: 12-29-2024 Patient encounter procedure Charan Casey DO Work Phone: [facility] Work Phone: Start: 12-26-2024 End: 12-26-2024 ambulatory Charan Casey DO Work Phone: [facility] Work Phone: Start: 12-26-2024 End: 12-26-2024 Patient encounter procedure Charan Casey DO Work Phone: [facility] Work Phone: Start: 12-26-2024 Registered Recurring Charan clemente DO Work Phone: [facility]-Physical Therapy [place] Start: 12-09-2024 End: 12-09-2024 ambulatory Charan Casey DO Work Phone: [facility] Work Phone: Start: 12-09-2024 End: 12-09-2024 Patient encounter procedure Charan Casey DO Work Phone: [facility] Work Phone: Start: 12-08-2024 End: 12-08-2024 Patient encounter procedure Charan Casey DO Work Phone: [facility]-X-Ray [facility] Start: 12-08-2024 End: 12-08-2024 ambulatory Charan Casey DO Work Phone: [facility] Work Phone: Start: 11-15-2024 Registered Recurring Charan clemente DO Work Phone: [facility]-Physical Therapy [place] Start: 2024 Non-patient / Non-visit Charanheather Casey DO Work Phone: [facility] Work Phone: Start: 2024 End: 2024 Admission to same day surgery center Charan Casey DO Work Phone: [facility]ive [facility] Work Phone: Start: 2024 End: 2024 ambulatory Blas Ortiz Facility:[facility] Start: 10-25-2024 End: 10-25-2024 Patient encounter procedure Charan Casey DO Work Phone: [facility] Work Phone: Start: 10-25-2024 End: 10-25-2024 ambulatory Nader Davis Antoinette Facility:[facility] Start: 10-19-2024 End: 10-19-2024 ambulatory Charan Casey DO Work Phone: [facility] Work Phone: Start: 10-19-2024 End: 10-19-2024 Patient encounter procedure Charan Casey DO Work Phone: [facility] Work Phone: Start: 10-17-2024 End: 10-17-2024 Office outpatient visit 25 minutes Shaina Munroe DO Work Phone: [facility] 230 Comment on above: Type 2 diabetes [...] / Non-visit DO Yeison Casey Work Phone: [facility] Work Phone: Start: 09-20-2024 End: 09-20-2024 Admission to same day surgery center DO Charan Casey Work Phone: [facility] Work Phone: Start: 09-20-2024 End: 09-20-2024 ambulatory DO Charan Casey Work Phone: [facility] Work Phone: Start: 09-12-2024 Non-patient / Non-visit DO Yeison Casey Work Phone: [facility] [place] Work Phone: Start: 09-12-2024 End: 09-12-2024 ambulatory DO Charan Casey Work Phone: [facility] Work Phone: Start: 09-12-2024 End: 09-12-2024 Patient encounter procedure DO Charan Casey Work Phone: [facility] Work Phone: Start: 09-07-2024 End: 09-07-2024 Patient encounter procedure DO Charan Casey Work Phone: [facility] Work Phone: Start: 09-07-2024 End: 09-07-2024 ambulatory DO Charan Casey Work Phone: [facility] Work Phone: Start: 09-02-2024 End: 09-02-2024 ambulatory Charan Casey Facility:[facility] Start: 09-02-2024 Registered Recurring DO Charan Casey Work Phone: [facility]-Physical Therapy [place] Start: 08-25-2024 End: 08-25-2024 Office outpatient visit 25 minutes Rosalinda Torres MD Work Phone: [facility] Comment on above: Coronary artery dise ase, unspecified vessel or lesion type, unspecified whether angina present, unspecified whether [place] or transplanted heart; Elevated coronary artery calcium [...] 06-13-2024 ambulatory DO Charan Casey Work Phone: [facility] Work Phone: Start: 06-13-2024 End: 06-13-2024 Patient encounter procedure DO Charan Casey Work Phone: [facility] Work Phone: Start: 06-08-2024 End: 06-08-2024 ambulatory DO Charan Casey Work Phone: [facility] Work Phone: Start: 06-08-2024 End: 06-08-2024 Patient encounter procedure DO Charan Casey Work Phone: [facility] Work Phone: Start: 05-31-2024 Non-patient / Non-visit DO Yeison heather Casey Work Phone: [facility] Work Phone: Start: 05-31-2024 End: 05-31-2024 Admission to same day surgery center DO Charan Casey Work Phone: [facility] Work Phone: Start: 05-31-2024 End: 05-31-2024 ambulatory DO Charan Casey Work Phone: [facility] Work Phone: Start: 05-23-2024 End: 05-23-2024 ambulatory DO Charan Casey Work Phone: [facility] Work Phone: Start: 05-23-2024 End: 05-23-2024 Patient encounter procedure DO Charan Casey Work Phone: [facility] Work Phone: Start: 05-13-2024 Non-patient / Non-visit DO Yeison Casey Work Phone: [facility] [place] Work Phone: Start: 04-19-2024 Non-patient / Non-visit DO Yeison Casey Work Phone: [facility] [place] Work Phone: Start: 03-18-2024 Non-patient / Non-visit DO Yeison Casey Work Phone: [facility] Work Phone: Start: 03-17-2024 End: 03-17-2024 ambulatory DO Charanheather Casey Work Phone: [facility] Work Phone: Start: 03-17-2024 End: 03-17-2024 Patient encounter procedure DO Charan Casey Work Phone: [facility] Work Phone: Start: 03-05-2024 End: 03-05-2024 ambulatory DO Charanheather Casey Work Phone: [facility] Work Phone: Start: 03-05-2024 End: 03-05-2024 Patient encounter procedure DO Charan Casey Work Phone: [facility] Work Phone: Start: 03-01-2024 End: 03-01-2024 ambulatory DO Charanheather Masseys Work Phone: [facility] Work Phone: Start: 03-01-2024 End: 03-01-2024 Patient encounter procedure DO Charanheather Masseys Work Phone: [facility] Work Phone: Start: 02-29-2024 End: 02-29-2024 ambulatory DO Charan Casey Work Phone: [facility] Work Phone: Start: 02-29-2024 End: 02-29-2024 Patient encounter procedure DO Charan Casey Work Phone: [facility] Start: 02-23-2024 Non-patient / Non-visit DO Yeison heather Jacinto [facility] Work Phone: Start: 02-22-2024 End: 02-22-2024 ambulatory ROSALINDA Morales [facility] Amb[facility] Start: 02-22-2024 End: 02-22-2024 Office outpatient visit 25 minutes Rosalinda Torres MD Work Phone: [facility] Comment on above: Coronary artery dise ase, unspecified vessel or lesion type, unspecified whether angina present, unspecified whether [place] or transplanted heart (Primary Dx); Essential hypertension; 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 Start: 02-17-2024 Non-patient / Non-visit DO Yeison Casey Work Phone: [facility] Work Phone: Start: 02-12-2024 Non-patient / Non-visit DO Yeison heather Jacinto Work Phone: [facility] Work Phone: Start: 02-04-2024 End: 02-04-2024 Patient encounter procedure DO Charan Casey Work Phone: [facility] Work Phone: Start: 01-11-2024 End: 01-11-2024 ambulatory Charan Masseybryn Other [employer] Other Start: 01-11-2024 Telephone encounter Charan Masseys [facility] [place] Start: 12-31-2023 End: 12-31-2023 ambulatory Charan Masseys Other [employer] Other Start: 12-31-2023 Telephone encounter Charan Casey [facility] [place] Start: 12-30-2023 End: 12-30-2023 Patient encounter procedure DO Charan Masseybryn Work Phone: [facility] Start: 12-30-2023 End: 12-30-2023 ambulatory DO Charan Brysonbryn Work Phone: [facility] Work Phone: Start: 12-30-2023 Office outpatient vi sit 15 minutes [facility] Start: 12-30-2023 End: 12-30-2023 Patient encounter procedure DO Charanheather Casey Work Phone: [facility]- Start: 11-26-2023 End: 11-26-2023 ambulatory DO Charanheather Casey Work Phone: [facility] Work Phone: Start: 11-26-2023 End: 11-26-2023 Patient encounter procedure DO Charan Casey Work Phone: [facility]-Lab [facility] Start: 11-06-2023 End: 11-06-2023 ambulatory Charan Masseys Other [facility] [employer] Other Start: 11-06-2023 Telephone encounter Charan Casey [facility] Start: 11-05-2023 Diabetic care education [facility] Start: 11-05-2023 Encounter by computer link [facility] Start: 11-05-2023 End: 11-05-2023 ambulatory DO Charan Casey Work Phone: [employer] Other Start: 11-05-2023 End: 11-05-2023 Discharged Recurring DO Charan Casey Work Phone: [facility] Work Phone: Start: 11-05-2023 Registered Recurring DO Charan Casey Work Phone: [facility] Work Phone: Start: 11-03-2023 End: 11-03-2023 ambulatory Charan Casey Other [employer] Other Start: 11-03-2023 Telephone encounter Charan Casey [facility] [place] Start: 10-28-2023 End: 10-28-2023 ambulatory Blas Ortiz Other [employer] Other Start: 10-28-2023 Office outpatient vi sit 15 minutes Blas Ortiz [facility] [place] Start: 10-28-2023 Telephone encounter Blas Ortiz [facility] [place] Start: 10-28-2023 End: 10-28-2023 Patient encounter procedure DO Charan Jacinto Work Phone: [facility] Work Phone: Start: 10-21-2023 End: 10-21-2023 ambulatory Blas [place] Other [employer] Other Start: 10-21-2023 Office outpatient vi sit 15 minutes Blas Bellamy [facility] [address] Start: 10-21-2023 End: 10-21-2023 Patient encounter procedure DO Charan Casey Work Phone: [facility] [place] Work Phone: Start: 10-19-2023 End: 10-19-2023 ambulatory Blsa Erastoerika Other [employer] Other Start: 10-19-2023 Telephone encounter Blas Ortiz [facility] [place] Start: 10-07-2023 End: 10-07-2023 ambulatory Charan Casey Other [employer] Other Start: 10-07-2023 Telephone encounter Charan Casey [facility] [place] Start: 10-06-2023 End: 10-06-2023 Admission to same day surgery center DO Charan Casey Work Phone: [facility] Work Phone: Start: 10-06-2023 End: 10-06-2023 ambulatory DO Charan Casey Work Phone: [facility] Work Phone: Start: 09-23-2023 End: 09-23-2023 ambulatory Blas Ortiz Other [employer] Other Start: 09-23-2023 Office outpatient vi sit 15 minutes Blas Ortiz [facility] [place] Start: 09-15-2023 End: 09-15-2023 ambulatory Elpidio Sole Other [employer] Other Start: 09-15-2023 Office outpatient vi sit 25 minutes Elpidio Sole [facility] Start: 09-14-2023 End: 09-14-2023 ambulatory DO Charan Casey Work Phone: [facility] Work Phone: Start: 09-14-2023 End: 09-14-2023 Patient encounter procedure DO Charan Casey Work Phone: [facility] Start: 09-08-2023 (Procedure) Short Blas Ortiz [facility] Start: 09-08-2023 End: 09-08-2023 Admission to same day surgery center DO Charan Casey Work Phone: [facility] Work Phone: Start: 09-08-2023 End: 09-08-2023 ambulatory DO Charan Casey Work Phone: [facility] Work Phone: Start: 08-25-2023 End: 08-25-2023 ambulatory Imad Asaad Other [employer] Other Start: 08-25-2023 Telephone encounter Yasmeen Treadwell [facility] Start: 08-18-2023 End: 08-18-2023 ambulatory Charan Casey Other [employer] Other Start: 08-18-2023 Telephone encounter Charan Casey [facility] [place] Start: 08-17-2023 End: 08-17-2023 ambulatory Blas Ortiz Other [employer] Other Start: 08-17-2023 Office outpatient vi sit 25 minutes Blas Ortiz [facility] Pain Management [place] Start: 08-17-2023 End: 08-17-2023 Patient encounter procedure DO Charan Casey Work Phone: [facility] [place] Start: 08-11-2023 Office outpatient vi sit 15 minutes Thierno Chatterjee [facility] Start: 08-11-2023 End: 08-11-2023 ambulatory DO Charan Casey Work Phone: [facility] Work Phone: Start: 08-11-2023 End: 08-11-2023 Patient encounter procedure DO Charan Casey Work Phone: [facility] Start: 08-05-2023 End: 08-05-2023 ambulatory Charan Casey Other [employer] Other Start: 08-05-2023 Office outpatient vi sit [address] [facility] Start: 07-02-2023 End: 07-02-2023 ambulatory Charan Casey Other [employer] Other Start: 07-02-2023 Telephone encounter Charan Casey [facility] Start: 06-08-2023 End: 06-08-2023 ambulatory DO Charan Casey Work Phone: [facility] Work Phone: Start: 06-08-2023 End: 06-08-2023 Discharged Recurring DO Charan Casey Work Phone: [facility]-Physical Therapy [facility] Start: 05-28-2023 End: 05-28-2023 ambulatory Renée Watts Other [employer] Other Start: 05-28-2023 Diabetic care education Renée [facility] Start: 05-28-2023 Registered Recurring DO Charan Casey Work Phone: [facility] Work Phone: Start: 05-19-2023 Office outpatient vi sit [address] [facility] Start: 05-19-2023 End: 05-19-2023 ambulatory DO Charan Casey Work Phone: [facility] Work Phone: Start: 05-19-2023 End: 05-19-2023 Patient encounter procedure DO Charan Casey Work Phone: [facility] Start: 05-05-2023 End: 05-05-2023 ambulatory Charan Casey Other [employer] Other Start: 05-05-2023 Telephone encounter Charan Casey [facility] [place] Start: 04-30-2023 Office outpatient vi sit 25 minutes Charan Casey Work Phone: [facility] [address] DO Work Phone: Start: 04-30-[address] Charan Csaey Facility: Start: 04-13-2023 End: 04-13-2023 ambulatory ACOSTA CASTRO Facility:[facility] Start: 04-07-2023 End: 04-08-2023 ambulatory BLANKA OLGUIN Facility:[facility] Start: 04-06-2023 Encounter for preprocedural laboratory examination ACOSTA CASTRO [facility] Start: 04-06-2023 End: 04-06-2023 ambulatory Charan Casey Other [employer] Other Start: 04-06-2023 Telephone encounter Charan Casey [facility] [place] Start: 03-31-2023 Office outpatient vi sit 25 minutes Charan Casey [facility] [place] Start: 03-31-2023 End: 04-01-2023 ambulatory [facility] [employer] Other Start: 03-31-2023 End: 04-01-2023 Encounter for preprocedural laboratory examination ACOSTA HERNANDEZMISAEL Facility:[facility] Start: 03-26-2023 End: 03-26-2023 ambulatory Charan Casey Other [employer] Other Start: 03-26-2023 Telephone encounter Charan Casey [facility] [place] Start: 03-23-2023 End: 03-24-2023 ambulatory BLANKA OLGUIN Facility:[facility] Start: 03-10-2023 End: 03-10-2023 ambulatory Elpidio Sole Other [employer] Other Start: 03-10-2023 Office outpatient vi sit 25 minutes Elpidio Sole [facility] Start: 03-06-2023 End: 03-06-2023 ambulatory DO Charan Casey Work Phone: [facility] Work Phone: Start: 03-06-2023 End: 03-06-2023 Patient encounter procedure DO Charan Casey Work Phone: [facility] Start: 03-04-2023 Office outpatient vi sit 15 minutes [facility] System Start: 03-04-[address] Charan Casey [facility] Start: 03-04-2023 End: 03-04-2023 ambulatory DO Chaarn Brysonbryn Work Phone: [employer] Other Start: 03-04-2023 End: 03-04-2023 Patient encounter procedure DO Charan Casey Work Phone: [facility] Work Phone: Start: 03-03-2023 End: 03-04-2023 ambulatory BLANKA OLGUIN Facility:H1 Start: 02-17-2023 End: 02-18-2023 ambulatory BRODERICK FLOR Facility:H1 Start: 02-16-2023 End: 02-16-2023 ambulatory Charan Casey Other [employer] Other Start: 02-16-2023 Telephone encounter Charan Casey [facility] [place] Start: 02-05-2023 End: 02-05-2023 ambulatory Charan Jacinto Other [employer] Other Start: 02-05-2023 Telephone encounter Charan Jacinto [facility] [place] Start: 02-03-2023 End: 02-04-2023 ambulatory BRODERICK FLOR Facility:H1 Start: 01-27-2023 End: 01-27-2023 Patient encounter procedure DO Charan Casey Work Phone: [facility] Work Phone: Start: 01-27-2023 End: 01-27-2023 ambulatory DO Charan Casey Work Phone: [facility] Work Phone: Start: 01-27-2023 Immune Injection one Vaccine (Admin Chg) Renée Watts [facility] Start: 01-20-2023 End: 01-21-2023 ambulatory BLANKA OLGUIN Facility:H1 Start: 01-19-2023 End: 01-19-2023 ambulatory Charan Casey Other [facility] [employer] Other Start: 01-19-2023 [address]an Casey [facility] Start: 12-29-2022 End: 12-31-2022 ambulatory BLANKA OLGUIN Facility:H1 Start: 12-25-2022 Encounter for preprocedural cardiovascular examination [facility] Start: 12-25-2022 Encounter for preprocedural laboratory examination [facility] Start: 12-23-2022 End: 12-24-2022 ambulatory [facility] Facility:H1 Start: 12-23-2022 End: 12-24-2022 Encounter for preprocedural cardiovascular examination [facility] Facility:H1 Start: 11-26-2022 End: 11-27-2022 ambulatory BRODERICK FLOR Facility:H1 Start: 11-12-2022 End: 11-13-2022 ambulatory BLANKA OLGUIN Facility:H1 Start: 11-12-[address] Charan Casey Facility: Start: 10-28-2022 ([facility] INJ) [facility] Injection Eliud Napoleon [facility] Start: 10-28-2022 End: 10-28-2022 ambulatory DO Charan Casey Work Phone: [facility] Work Phone: Start: 10-28-2022 End: 10-28-2022 Patient encounter procedure DO Charan Casey Work Phone: [facility] Start: 10-16-2022 ([facility] C Vac) [facility] Co vid Vaccine Renée Watts [facility] Start: 10-16-2022 ([facility] INJ) [facility] Injection Renée Mac [facility] Start: 10-16-2022 Telephone encounter Elpidio Sole [facility] Nephrology Start: 10-16-2022 End: 10-16-2022 ambulatory DO Charan Casey Work Phone: [employer] Other Start: 10-16-2022 End: 10-16-2022 Patient encounter procedure DO Charan Casey Work Phone: [facility] Start: 10-15-2022 End: 10-15-2022 ambulatory DO Charan Casey Work Phone: [facility] Work Phone: Start: 10-15-2022 End: 10-15-2022 Patient encounter procedure DO Charan Casey Work Phone: [facility] [address] Start: 10-13-2022 End: 10-13-2022 ambulatory DO Charan Casey Work Phone: [facility] Work Phone: Start: 10-13-2022 End: 10-13-2022 Patient encounter procedure DO Charanheather Masseybryn Work Phone: [facility] [address] Start: 09-24-2022 End: 09-24-2022 ambulatory Elpidio Sole Other [employer] Other Start: 09-24-2022 Office outpatient vi sit 25 minutes Elpidio Sole [facility] [place] Start: 09-02-2022 End: 09-02-2022 ambulatory Charan Casey Other [employer] Other Start: 09-02-2022 Office outpatient vi sit 25 minutes Charan Casey [facility] [place] Start: 08-13-2022 End: 08-13-2022 Patient encounter procedure DO Charan Casey Work Phone: [facility] Start: 08-07-2022 End: 08-07-2022 ambulatory Charan Casey Other [employer] Other Start: 08-07-2022 Telephone [facility] Start: 07-27-2022 End: 07-27-2022 Emergency department patient visit DO Charan Casey Work Phone: [facility] Start: 07-16-2022 End: 07-16-2022 ambulatory Charan Casey Other [facility] [employer] Other Start: 07-16-2022 [address] Charan Casey [facility] Start: 07-02-2022 End: 07-02-2022 ambulatory Charan Casey Other [facility] [employer] Other Start: 07-02-2022 [address] Charan Casey [facility] Start: 05-08-2022 Office outpatient vi sit 25 minutes Charan Casey Work Phone: [place] [address] DO Work Phone: Start: 04-30-2022 End: 04-30-2022 ambulatory Federico Sepulveda Other [facility] [employer] Other Start: 04-30-2022 Office outpatient vi sit 10 minutes Federico Sepulveda [facility] Start: 04-14-2022 End: 04-14-2022 ambulatory Charan Casey Other [employer] Other Start: 04-14-2022 Office outpatient vi sit 25 minutes Charan Casey [facility] [place] Start: 04-07-2022 End: 04-07-2022 ambulatory Charanheather Casey Other [employer] Other Start: 04-07-2022 Telephone encounter Charan Casey [facility] [place] Start: 04-02-2022 End: 04-02-2022 ambulatory Charanheather Casey Other [employer] Other Start: 04-02-2022 Telephone encounter Charan Casey [facility] [place] Start: 03-31-2022 End: 03-31-2022 ambulatory Charanheather Caesy Other [employer] Other Start: 03-31-2022 Telephone encounter Charan Casey [facility] [place] Start: 03-27-2022 [facility], Provider: Rosalinda Torres, Status: Pen, Time: 1:00 PM Charan Casey Work Phone: [facility] 250 DO Work Phone: Start: 03-26-2022 Chart Update Charanheather Casey Work Phone: [facility] 250 DO Work Phone: Start: 03-13-2022 End: 03-13-2022 ambulatory Charanheather Casey Other [facility] [employer] Other Start: 03-13-2022 Telephone encounter Charanheather Casey [facility] Start: 03-12-2022 Chart Update Charan Louise Jacinto Work Phone: [facility] 250 DO Work Phone: Start: 03-07-2022 End: 03-07-2022 ambulatory Renée Watts Other [employer] Other Start: 03-07-2022 Telephone encounter Renée Watts [facility] Start: 03-04-2022 End: 03-04-2022 ambulatory Charan Casey Other [employer] Other Start: 03-04-2022 Telephone encounter Charan Casey [facility] Start: 02-20-2022 End: 02-20-2022 ambulatory Elpidio Sole Other [employer] Other Start: 02-20-2022 Office outpatient vi sit 25 minutes Elpidio Sole [facility] Start: 02-10-2022 End: 02-10-2022 ambulatory Charan Casey Other [employer] Other Start: 02-10-2022 Telephone encounter Charan Casey [facility] [place] Start: 02-07-2022 End: 02-07-2022 ambulatory Charan Casey Other [employer] Other Start: 02-07-2022 Office outpatient vi sit 25 minutes Charan Casey [facility] [place] Start: 02-05-2022 End: 02-05-2022 ambulatory Charan Casey Other [employer] Other Start: 02-05-2022 Telephone encounter Charan Casey [facility] [place] Start: 01-21-2022 End: 01-21-2022 ambulatory Charan Casey Other [employer] Other Start: 01-21-2022 Telephone encounter Charan Casey [facility] [place] Start: 12-31-2021 End: 12-31-2021 ambulatory Thierno Chatterjee Other [employer] Other Start: 12-31-2021 Office outpatient vi sit 15 minutes Thierno Chatterjee [facility] Start: 12-07-2021 End: 12-07-2021 ambulatory Charan Casey Other [employer] Other Start: 12-07-2021 Telephone encounter Charan Jacinto [facility] Start: 12-06-2021 End: 12-06-2021 ambulatory Charan Masseybryn Other [employer] Other Start: 12-06-2021 Telephone encounter Charan Casey [facility] Start: 12-03-2021 End: 12-03-2021 ambulatory Charan Casey Other [employer] Other Start: 12-03-2021 Office outpatient vi sit [address] [facility] Start: 10-01-2021 End: 10-01-2021 ambulatory Blas Ortiz Other [employer] Other Start: 10-01-2021 Office outpatient vi sit 25 minutes Blas Ortiz [facility] [place] End: 02-20-2022 Patient encounter status Charan Dani Jacinto Work Phone: [facility] DO Work Phone: Procedures Date [...] Start: 10-13-2022 CT of bilateral feet DO Cahran Casey Work Phone: Start: 10-13-2022 Pulse volume [...] Screening for malign ant neoplasm of colon [facility] Start: 2025 Pneumococcal Vaccine : Pediatrics (0 to 5 Years) and At-Risk Patients (6 to 64 Years) (3 - PPSV23 or PCV20) Pneumococcal Vaccine: Pediatrics (0 to 5 Years) and At-Risk Patients (6 to 64 Years) (3 - PPSV23 or PCV20) [facility] Start: 2025 Pneumococcal Vaccine : Pediatrics (0 to 5 Years) and At-Risk Patients (6 to 64 Years) (3 of 3 - PPSV23 or PCV20) Pneumococcal Vaccine: Pediatrics (0 to 5 Years) and At-Risk Patients (6 to 64 Years) (3 of 3 - PPSV23 or PCV20) [facility] Start: 10-24-2025 End: 10-24-2025 Patient encounter procedure 10/24/2025 10:30 AM EST Office Visit [facility] [address] [place] [address] Shaina Munroe DO [address] [place] [address] [facility] 230 Start: 09-05-2025 Glaucoma screening Diabetes: R etinopathy Screening [facility] Start: 08-15-2025 End: 08-15-2025 Patient encounter procedure [facility] 230 Start: 07-31-2025 Influenza vaccination N [facility] Start: 07-27-2025 End: 07-27-2025 Patient encounter procedure 07/27/2025 8:15 AM EDT Office Visit [facility] [place] [facility] [address] [place] [address] Shaina Munroe, DO [address] [place] [address] Arrived [facility] 230 Comment on above: Arrived Start: 03-28-2025 End: 03-28-2025 Patient encounter procedure 03/28/2025 8:50 AM EDT Office Visit [facility] [address] [place] [address] Rosalinda Torres MD [address] [place] [address] [facility] Start: 02-14-2025 End: 02-14-2025 Patient encounter procedure 02/14/2025 9:30 AM EDT Office Visit [facility] [address] [place] [address] Shaina Munroe, DO [address] [place] [address] [facility] 230 Start: 01-23-2025 MR Shoulder - right WO contrast [facility] Start: 01-23-2025 MRI of right shoulder MR shoulder RT wo con [facility] Start: 01-17-2025 Hemoglobin A1c measurement Diabetes: Hemoglobin A1C [facility] Start: 2024 [facility] Start: 09-20-2024 [facility] Start: 08-25-2024 End: 08-25-2024 Patient encounter procedure 08/25/2024 8:40 AM EDT Office Visit [facility] [address] [place] [address] Rosalinda Torres MD [address] [place] [address] [facility] Start: 07-31-2024 COVID-19 Vaccine ( season) COVID-19 Vaccine ( season) [facility] Start: 07-31-2024 Influenza vaccination Influenza Vacc ine (#1) [facility] Start: 05-31-2024 [facility] Start: 02-29-2024 Bacteria identified in Urine by Culture [facility] Start: 02-29-2024 Urine culture Urine Culture [facility] Start: 11-10-2023 [facility], Provider: Rosalinda Torres, Status: Pen, Time: 9:10 AM [facility], Provider: Rosalinda Torres, Status: Pen, Time: 9:10 AM [facility] 250 DO Work Phone: Start: 10-06-2023 [facility] Start: 09-08-2023 [facility] Start: 07-31-2023 COVID-19 Vaccine ( season) COVID-19 Vaccine ( season) [facility] Start: 07-31-2023 Influenza vaccination Influenza Vacc ine (#1) [facility] Start: 03-06-2023 Bacteria identified in Urine by Culture [facility] Start: 11-12-2022 [facility], Provider: Rosalinda Torres, Status: Pen, Time: 9:00 AM [facility], Provider: Rosalinda Torres, Status: Pen, Time: 9:00 AM [facility] 250 DO Work Phone: Start: 09-08-2022 DTaP/Tdap/Td Vaccine s (2 - Td or Tdap) DTaP/Tdap/Td Vaccines (2 - Td or Tdap) [facility] Start: 03-27-2022 [facility], Provider: Rosalinda Torres, Status: Pen, Time: 1:00 PM [facility], Provider: Rosalinda Torres, Status: Pen, Time: 1:00 PM [facility] 250 DO Work Phone: Start: 03-14-2022 [facility]UV, Provider: oRsalinda Torres, Status: Pen, Time: 1:50 PM [facility], Provider: Rosalinda Torres, Status: Pen, Time: 1:50 PM -[facility] 250 DO Work Phone: Start: 2020 RSV patient s and/or patients aged 60+ years (1 - 1-dose 60+ series) RSV patients and/or patients aged 60+ years (1 - 1-dose 60+ series) [facility] Start: 2000 Screening for malign ant neoplasm of breast Mammogram [facility] Start: 1990 Screening for malign ant neoplasm of cervix [facility] Start: 1982 DTaP/Tdap/Td Vaccine s (1 - Tdap) DTaP/Tdap/Td Vaccines (1 - Tdap) [facility] Start: 1981 Screening for malign ant neoplasm of cervix [facility] Start: 1979 Urine screening for protein Diabetes: Urine Protein Screening [facility] Start: 1978 Hepatitis C screening Hepatitis C Sc reening [facility] Start: 1970 Diabetic foot examination Diabetes: Foot Exam [facility] Start: 1970 Glaucoma screening Diabetes: R etinopathy Screening [facility] Start: 1961 MMR Vaccines (1 of 1 - Standard series) MMR Vaccines (1 of 1 - Standard series) [facility] Start: 1960 Hemoglobin A1c measurement Diabetes: Hemoglobin A1C [facility] Start: 1960 HIV screening HIV Screening [facility] Start: 1960 Lipid panel Lipid Panel [facility] Start: 1960 Medicare Annual Well ness (AWV) Medicare Annual Wellness (AWV) [facility] Start: 1960 Medicare Annual Well ness Visit Medicare Annual Wellness Visit (AWV) [facility] Start: 1960 Screening for malign ant neoplasm of colon [facility] Start: 1960 Yearly Adult Physical Yearly Adult P hysical [facility] Comprehensive metabo lic 2000 panel - Serum or Plasma [facility] MR Lumbar spine WO a nd W contrast IV [facility] MR Shoulder - right WO contrast [facility] Patient Education [facility] Work Phone: Patient referral [facility] Work Phone: Renal function 1999 panel - Serum or Plasma [facility] Rheumatoid factor [Units/volume] in Serum or Plasma [facility] Immunizations Immunization Date Immunization Notes Care Provider Fa cility 01-27-2023 zoster vaccine recombinant Renée Fitt Other [facility] 10-28-2022 zoster vaccine recombinant Eliud LePoire Other [facility] 10-16-2022 influenza virus vaccine, unspecified formulation DO Charan Casey Work Phone: [facility] 10-16-2022 influenza, seasonal, injectable Rosalinda Torres MD Work Phone: [facility] Work Phone: 10-16-2022 Moderna SARS-CoV-2 Vaccination Rosalinda Torres MD Work Phone: [facility] Work Phone: 10-16-2022 COVID-19 Moderna (BIvalent) Renée Fitt Other [facility] 10-16-2022 influenza, high dose seasonal, preservative-free Renée Fitt Other [employer] [facility] [employer] Other 10-16-2022 influenza, injectabl e, quadrivalent, preservative free Renée Fitt Other [employer] [facility] [employer] Other 09-26-2021 Moderna COVID-19 Vaccine 100 MCG/0.5ML Intramuscular Suspension Charan Casey Work Phone: [facility] 09-25-2021 Moderna SARS-CoV-2 Booster Vaccination Shaina Munroe DO Work Phone: [facility] 08-30-2021 seasonal influenza, intradermal, preservative free Charan Louise [facility]sonbryn [facility] DO Work Phone: 12-25-2020 COVID-19 Vaccine Moderna - Documentation Purposes Only Blas Ortiz Other [facility] 11-28-2020 Moderna COVID-19 Vaccine 100 MCG/0.5ML Intramuscular Suspension Charan Casey Work Phone: [facility] 08-30-2019 influenza virus vaccine, unspecified formulation Charan Dani Brysonbryn Work Phone: [facility] [employer] DO Work Phone: 08-30-2019 influenza, injectabl e, quadrivalent, preservative free Shaina Munroe DO Work Phone: [facility] 08-30-2019 influenza, seasonal, injectable Blas Erastoerika Other [facility] 08-30-2018 influenza, seasonal, injectable Blas Erastoerika Other [facility] 08-30-2018 influenza, seasonal, injectable, preservative free Shaina Munroe DO Work Phone: [facility] 12-02-2016 influenza virus vaccine, unspecified formulation DO Charan Masseybryn Work Phone: [facility] 12-02-2016 influenza, seasonal, injectable, preservative free Charanheather Casey Work Phone: [facility] 250 DO Work Phone: 12-02-2016 pneumococcal conjuga te vaccine, 13 valent Blas Ortiz Other [facility] 12-02-2016 influenza, high dose seasonal, preservative-free Blas Ortiz Other [facility] [employer] Other 12-02-2016 influenza, injectabl e, quadrivalent, preservative free Renée Watts Other [employer] Other 11-30-2016 pneumococcal polysaccharide vaccine, 23 valent Charan Casey [facility]: [facility] [employer] [facility] Work Phone: 10-15-2016 pneumococcal polysaccharide vaccine, 23 valent Charan Casey Work Phone: [facility] 09-08-2012 influenza virus vaccine, unspecified formulation DO Charan Casey Work Phone: [facility] 09-08-2012 tetanus toxoid, reduced diphtheria toxoid, and acellular pertussis vaccine, adsorbed Blas Ortiz Other [facility] 09-08-2012 influenza virus vaccine, split virus (incl. purified surface antigen) Blas Ortiz Other [employer] Other influenza virus vaccine, unspecified formulation [facility]an Casey [facility] Work Phone: Comment on above: 2009 NEGATED: Highlighted row has not occurred!09-07-2017 influenza, injectable,quadrivalen t, preservative free, pediatric Blas Ortiz Other [employer] Other Payers Date Payer Category Payer Unknown [id number] 2024 Medicare [facility] [id number] 2024-Present [id number] [place] [address] [id number] 2024 Medicare (Managed Care) 1.2. [id number] 2024 Medicare [id number] 2022 Unknown 1960 Unknown [id number] 2.16.840.1.881036.3.579.2. 593 1960 Unknown [id number] 2.16.840.1.048684.3.579.2. 593 1960 Unknown [id number] 2.16.840.1.031234.3.579.2. 593 1960 Unknown [id number] 2.16.840.1.380071.3.579.2. 593 1960 Unknown [id number] 2.16.840.1.019579.3.579.2. 593 1960 Unknown [id number] 2.16.840.1.437934.3.579.2. 593 1960 Unknown [id number] 2.16.840.1.216373.3.579.2. 593 1960 Unknown [id number] 2.16.840.1.705530.3.579.2. 593 1960 Unknown [id number] 2.16.840.1.541038.3.579.2. 593 1960 Unknown [id number] 2.16.840.1.097488.3.579.2. 593 1960 Unknown [id number] 2.16.840.1.845620.3.579.2. 593 1960 Unknown [id number] 2.16.840.1.222274.3.579.2. 593 1960 Unknown [id number] 2.16.840.1.270805.3.579.2. 356 1960 Unknown [id number] 2.16.840.1.456699.3.579.2. 356 1960 Unknown [id number] 2.16.840.1.154972.3.579.2. 1244 1960 Unknown [id number] 2.16.840.1.002129.3.579.2. 1259 1960 Unknown [id number] 2.16.840.1.950136.3.579.2. 1259 1960 Unknown [id number] 2.16.840.1.411468.3.579.2. 1259 1960 Unknown [id number] 2.16.840.1.686623.3.579.2. 1259 1959 Unknown [id number] 2.16.840.1.608263.19 Medicare Medicare [id number] Self-pay Self Pay [id number] Social History Date Type Detail Facility Start: 12-04-2023 End: 07-26-2025 Occasional caffeine consumption Occasional caffeine consumption [facility] Comment on above: Coffee; Start: 12-04-2023 End: 07-26-2025 Sex Assigned At [facility] Start: 07-27-2022 End: 05-19-2023 Tobacco smoking status NHIS Never smoked tobacco (finding) [facility] Start: 1960 Sex Assigned At Female F [facility] Start: 05-19-2023 End: 12-04-2023 Tobacco use and exposure Smokeless tobacco non-user [facility] Work Phone: Start: 12-04-2023 End: 07-27-2025 Alcohol intake Lifetime non-drinker (finding) [facility] Work Phone: Start: 1960 Sex Assigned At Not on file [facility] Work Phone: Start: 02-12-2024 End: 08-25-2024 Exposure to SARS-CoV-2 (event) Not sure [facility] Start: 10-19-2024 End: 04-11-2025 Sex Female (finding) [facility] Do you belong to any clubs or organizations such as congregational groups, unions, fraternal or athletic groups, or [...] lumbar, XLIF Orthopaedic bone screw, non-bioabsorbable, non-sterile [id number] FDA Start: 07-25-2020 Fusion, spine, lumbar, XLIF Bone-screw internal spinal fixation system, non-sterile [id number] FDA Start: 07-25-2020 Fusion, spine, lumbar, XLIF STRATOFUSE [id number] FDA Start: 07-25-2020 Fusion, spine, lumbar, XLIF TIMBERLINE INTERBODY FDA Start: 07-25-2020 Fusion, spine, lumbar, XLIF Spinal fusion graft kit [id number] FDA Start: 07-25-2020 Fusion, spine, lumbar, XLIF Bone-screw internal spinal fixation system, non-sterile [id number] FDA Start: 07-25-2020 Fusion, spine, lumbar, XLIF [...] lumbar, XLIF TIMBERLINE INTERBODY FDA Start: 07-25-2020 [id number] Start: 08-11-2013 End: 07-26-2026 Drug-eluting coronary artery stent, [id number] lymer-coated [id number] FDA Start: 03-27-2022 Femoral artery closure plug/patch, synthetic polymer [id number] FDA Start: 03-27-2022 Pen Needle, Diab etic [...] Health [facility] ionnaire 2 item (PHQ-2) [Reported] [facility] Clinical Notes 12-31-2014 to 07-27-2025 Shaina [...] (BMI) of 35.0 to 35.9 in adult ([facility]) Type 2 diabetes mellitus with both eyes affected by mild nonproliferative retinopathy without macular edema, with long-term current use of insulin ([facility]) Social History Tobacco Use Smoking status: [...] daily 50 units) (100 UNIT/ML SOPN) Labs [facility] HEMO[place] A1C/HEMOGLOBIN.TOTAL:MFR:PT:BLD:QN: 8.1 Outpatient prescription Medication marked as long-term The ASCVD Risk score (Johnnie DK, et [...] Charcot's joint arthropathy (HCC) Long-term insulin use ([facility]) Class 2 severe obesity with serious comorbidity and body mass index (BMI) of 35.0 to 35.9 in adult ([facility]) Type 2 diabetes mellitus with both eyes affected by mild nonproliferative retinopathy without macular edema, with long-term current use of insulin ([facility] [facility]) Follow up in about 3 months [...] PO) Take by mouth CONTINUOUS BLOOD GLUC WALL STEAMER (DEXCOM G7 WALL STEAMER) DEVICE USE DIRECTED CONTINUOUS BLOOD GLUC SENSOR [...] the patient today. documented in this encounter [facility] 05-31-2025 Evaluation note Diagnosis Onset Date Resolution Chronic pain acute May 31 8:03am Sacroiliitis, not elsewhere classified acute May 31 8:03am Trochanteric bursitis acute May 8:03am [facility] Work Phone: 1(392) 470-430307-02-2025 Evaluation note* Diagnosis Onset Date Resolution Status Admit Date Chronic pain acute May 31 8:03am Sacroiliitis, not elsewhere classified acute May 31, 2025 8 :03am Trochanteric bursitis acute May 8:03am Chronic pain acute June 21, 025 9:03am Sacroiliitis, not elsewhere classified acute June 21, 2025 9:03am Trochanteric bursitis acute May 9:03am [facility] Work Phone: 1([phone]) 427-199307-02-2025 Evaluation note* Diagnosis Onset Date Resolution Status [...] Oral thrush acute July 12, 2025 7:36am [facility] Work Phone: 1([phone] 948-288706-16-2025 History of Present illness Narrative* Shaina Munroe, [...] (BMI) of 35.0 to 35.9 in adult ([facility]) Type 2 diabetes mellitus with both eyes affected by mild nonproliferative retinopathy without macular edema, with long-term current use of insulin ([facility]) Social History Tobacco Use Smoking status: [...] units dinner (500 UNIT/ML SOPN) -Discontinued Labs [facility] HEMOGLOB[place] A1C/HEMOGLOBIN.TOTAL:MFR:PT:BLD:QN: 8.1 Outpatient prescription Medication marked [...] KWIKPEN) 100 UNIT/ML injection insulin pen needle ([employer] Unifine Pentips) 31G X 8 mm misc Other Relevant Orders POCT glycosylated hemoglobin (Hb A1C) docked device (Completed) 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) - Primary Long-term insulin use (HCC) Class 2 severe obesity with serious comorbidity and body mass index (BMI) of 35.0 to 35.9 in adult ([facility]) Type 2 diabetes mellitus with both eyes affected by mild nonproliferative retinopathy without macular edema, with long-term current use of insulin ([facility]) Follow up in about 3 months [...] PO) Take by mouth CONTINUOUS BLOOD GLUC WALL STEAMER (DEXCOM G7 WALL STEAMER) DEVICE USE DIRECTED CONTINUOUS BLOOD GLUC SENSOR [...] 100 units) INSULIN PEN NEEDLE ([facility] PENTIPS) 31G X 8 MM MISC Drug [place] Unifine Pentips 31G X 8 MMmisc Injection subcutaneous tid USE DIRECTED Discontinued Medications No medications on file I have reviewed and reconciled the history and medication list with the patient today. documented in [facility] encounterBo[facility] [id number] Evaluation note* Diagnosis Onset Date Resolution Status [...] 2025 8:03am Trochanteric bursitis acute May 8:03am [facility] Work Phone: [phone]) 532-583802-19-2025 Evaluation note* Diagnosis Onset Date Resolution Status [...] region acu te March 06, 2025 7:41am [facility] Work Phone: [phone]) 174-110502-10-2025 Evaluation note* Author France Carlson [facility] Authored January 09, 2025 11:30am The above note written by ITZ Canchola acting as human recorder, note dictated by Dr. Charan Casey. [facility] Work Phone: [phone]) [phone] Telephone encounter Note* Telephone Encounter - Kati Clint - 01/09/2025 1:09 PM EST Pt's spouse called to ask if Dr. Merritt has any dexcom G7 sensors. She has been without for over aweek. Her prescription has been delayed due to insurance issues, She is having an injection tomorrow and is worried about her bg readings. [facility] [id number] Miscellaneous Notes* Telephone Encounter - Kati Jaramillo - 01/09/2025 1:09 PM EST Pt's spouse called to ask if Dr. Merritt has any dexcom G7 sensors. She has been without for over aweek. Her prescription has been delayed due to insurance issues, She is having an injection tomorrow and is worried about her bg readings. documented in this encounterNOP[facility] [id number] Evaluation note* Author France Carlson [facility] Authored January 09, 2025 10:30am The above note written by ITZ Canchola acting as human recorder, note dictated by Dr. Charan Casey. [facility] Work Phone: 1(732) 849-424511-20-2024 Evaluation note* Diagnosis Onset Date Resolution Status [...] with radiculopathy, lumbar region acute Nov 9:01am [facility] Work Phone: [phone]) 817-155411-20-2024 Evaluation note* Diagnosis Onset Date Resolution Status [...] rig ht shoulder acute December 29 7:33am [facility] Work Phone: [phone] History of Present illness Narrative* Shaina Munroe, [...] levels elevate. Under more stress with her Pel[employer] Joroto. Diet: low carb, increase protein Drinks: water, [...] (BMI) of 39.0 to 39.9 in adult ([facility]) Type 2 diabetes mellitus with both eyes affected by mild nonproliferative retinopathy without macular edema, with long-term current use of insulin ([facility]) Social History Tobacco Use Smoking status: [...] Type 2 diabetes mellitus with peripheral neuropathy ([facility]) - Primary During the appointment today all [...] 2 diabetes mellitus with Charcot's joint arthropathy ([facility]) Long-term insulin use ([facility]) Class 2 severe obesity with serious comorbidity and body mass index (BMI) of 39.0 to 39.9 in adult ([facility]) Type 2 diabetes mellitus with both eyes affected by mild nonproliferative retinopathy without macular edema, with long-term current use of insulin ([facility]) Follow up in about 4 months [...] at the same time. CONTINUOUS BLOOD GLUC WALL STEAMER (DEXCOM G7 WALL STEAMER) DEVICE USE DIRECTED CONTINUOUS BLOOD GLUC SENSOR (DEXCOM G7 SENSOR) [facility], CHANGE EVERY 10 [...] with the patient today. documented in this encounterBoone Hospital [id number] [facility] noteParkview Health10-14-2024 Evaluation note* Diagnosis Onset Date Resolution Status Admit Date Chronic pain acute August 8:03am Osteoarthritis of spine with radiculopathy, lumbar region acute Aug 8:03am Sacroiliitis, not elsewhere classified acute September 12 8:03am Chronic pain acute September 8:01am Osteoarthritis of spine with radiculopathy, lumbar region acute Sep 8:01am [facility] Work Phone: [phone] Evaluation note* Diagnosis Onset Date Resolution Status [...] shoulder acute October 25, 2 024 8:44am [facility] Work Phone: [phone] 527-151910-14-2024 Evaluation note* Diagnosis Onset Date Resolution Status [...] 8:44am Cough acute December 09, 2024 10:00am [facility] Work Phone: 1([phone]) 722-205009-26-2024 History of Present illness Narrative* Rosalinda Torres [...] remains way above target and due to Cupyjpu-Rozgv-Evvfn joints she has limited exercise capacity. Her [...] machine patient has been compliant with it. 0-Mllmciv-Aewmg-Tooth joint in the ankles status post recent [...] , Rfl: ergocalciferol (Vitamin D-2) 1.25 MG (87273 UT) capsule, Take 1 capsule (50,000 Units) [...] type, unspecified whether angina present, unspecified whether timbi-sha shoshone or transplanted heart Follow Up In Cardiology [...] exam, discussion and plan. documented in this [facility] Work Phone: 1([phone]) 844-794009-26-2024 Instructions* Patient Instructions* Enedina Isidro LPN - [...] Provided instructions on exercise. documented in this [facility] Work Phone: 1(508) 284-253107-02-2024 Procedure noteParkview Health03-25-2024 History of Present illness Narrative* Rosalinda Torres [...] She has orthopedic problems resulting from her Mnkheld-Ftcsk-Qxjsu disease. Her labs have been followed closely. [...] machine patient has been compliant with it. 6-Xjlqfff-Lmqgd-Tooth joint in the ankles status post recent [...] , Rfl: ergocalciferol (Vitamin D-2) 1.25 MG (36658 UT) capsule, Take 1 capsule (50,000 Units) [...] type, unspecified whether angina present, unspecified whether timbi-sha shoshone or transplanted heart Follow Up In Cardiology 2. Essential hypertension 3. 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 4. Hyperlipidemia, unspecified hyperlipidemia type 5. Obstructive sleep apnea syndrome 6. Class 2 obesity with body mass index (BMI) of 37.0 to 37.9 in adult, unspecified obesity type, unspecified whether serious comorbidity present 7. Insulin-requiring or dependent type II diabetes mellitus ([facility]) Scribe Attestation By signing my name [...] exam, discussion and plan. documented in this [facility] Work Phone: 1(140) 677-219103-25-2024 Instructions* Patient Instructions* Enedina Isidro LPN - [...] 6 m Same medications [facility]: [phone]) 613-462001-31-2024 Evaluation note* Encounter Date Diagnosis Assessment Notes [...] to call if she does not improve. [employer] Other 12-05-2023 Evaluation note* Encounter Date Diagnosis Assessment Notes Treatment Notes Treatment Clinical Notes Oct, Hyperlipidemia (ICD-10 - E78.5) [employer] Other 11-29-2023 Evaluation note* Encounter Date Diagnosis Assessment Notes Treatment Notes Treatment Clinical Notes Sep, Trochanteric bursitis of left hip (ICD-10 - M70.62) [employer] Other 11-29-2023 Evaluation note* Encounter Date Diagnosis [...] note writ ten by Willi Leiva MA, [employer]. Edited and approved by Dr. Blas Ortiz MD. [employer] Other 11-22-2023 Evaluation note* Encounter Date Diagnosis [...] of symptoms occur by end of treatment. [employer] Other 11-20-2023 Evaluation note* Encounter Date Diagnosis Assessment Notes Treatment Notes Treatment Clinical Notes Sep, Cervical spondylosis without myelopathy (ICD-10 - M47.812) [employer] Other 11-08-2023 Evaluation note* Encounter Date Diagnosis Assessment Notes Treatment Notes Treatment Clinical Notes Sep, Hypertensive chronic kidney disease with stage 1 through stage 4 chronic kidney disease, or unspecified chronic kidney disease (ICD-10 - I12.9) [employer] Other 11-07-2023 History and physical note Author Yasmeen Treadwell [facility] October 06, 2023 8:31am Note Date/Time October 06, 2023 8 :31am [facility] [address] [place] [address] Gastroenterology H&P Signed Patient: Rita Cobb MR#: [id number] [birth year] : 1960 Acct:[id number] Age/Sex: 62 / F Adm Date: 3 Loc: Room: Type: [facility] Attending Dr: Yasmeen Treadwell MD Copies [...] <Electronically signed by Yasmeen Treadwell MD> 10/06/23830 [facility] Work Phone: 1(996) 974-618011-07-2023 Procedure noteParkview Health10-25-2023 Evaluation note* Encounter Date Diagnosis Assessment Notes [...] note writ ten by Corina Sánchez LPN, [employer]. Edited and approved by Dr. Blas Ortiz MD. [employer] Other 10-17-2023 Evaluation note* Encounter Date Diagnosis [...] risk of worsening renal function and hematuria. [employer] Other 09-19-2023 Evaluation note* Encounter Date Diagnosis Assessment Notes Treatment Notes Treatment Clinical Notes Jul, Hyperuricemia (ICD-1 0 - E79.0) Jul, Diabetic neuropathy (ICD-10 - E11.40) [employer] Other 09-18-2023 Evaluation note* Encounter Date Diagnosis [...] note writ ten by Corina Sánchez LPN, [employer]. Edited and approved by Dr. Blas Ortiz MD. [employer] Other 09-12-2023 Evaluation note* Encounter Date Diagnosis [...] Low back pain, unspecified (ICD-10 - M54.50) [employer] Other 09-06-2023 Evaluation note* Encounter Date Diagnosis [...] Screening for colon cancer (ICD-10 - Z12.11) [employer] Other 08-03-2023 Evaluation note* Encounter Date Diagnosis Assessment Notes Treatment Notes Treatment Clinical Notes Jun, Type 2 diabetes mellitus with diabetic neuropathy, unspecified (ICD-10 - E11.40) [employer] Other 06-20-2023 Evaluation note* Encounter Date Diagnosis [...] M47.812) Refill provided of the above medication. [employer] Other 06-06-2023 Evaluation note* Encounter Date Diagnosis Assessment Notes Treatment Notes Treatment Clinical Notes Apr, Type 2 diabetes mellitus with diabetic neuropathy, unspecified (ICD-10 - E11.40) [employer] Other 05-15-2023 NotePROCEDURE: XR FOOT LT 2V HISTORY: Pain COMPARISON: XR foot left 04/07/2023 FINDINGS: BONES:Several intraoperative spot fluoroscopic images demonstrate removal of 3 separate lag screws fixating the second and fourth metatarsophalangeal joints. SOFT TISSUES:Expected intraoperative findings. OTHER: Negative. IMPRESSION: 1. Hardware revision involving left midfoot. Electronically authenticated by: BLANKA OLGUIN Date: 2023-04-13 11:35[facility]05-15-2023 NotePROCEDURE: XR FOOT LT MIN 3 [...] Electronically authenticated by: BLANKA OLGUIN Date: 2023-04-13 11:29[facility]05-09-2023 NotePROCEDURE: XR FOOT LT MIN 3 VIEWS [...] Electronically authenticated by: BLANKA OLGUIN Date: 2023-04-07 13:31[facility]05-08-2023 Evaluation note* Encounter Date Diagnosis Assessment Notes Treatment Notes Treatment Clinical Notes March, Type 2 diabetes mellitus with diabetic neuropathy, unspecified (ICD-10 - E11.40) March, Type 2 diabetes mellitus with hyperglycemia, without long-term current use of insulin (ICD-10 - E11.65) [employer] Other 05-02-2023 Evaluation note* Encounter Date Diagnosis [...] as scheduled. Most recent A1C was 7.0. [employer] Other 04-27-2023 Evaluation note* Encounter Date Diagnosis Assessment Notes Treatment Notes Treatment Clinical Notes Feb, Hypertensive chronic kidney disease with stage 1 through stage 4 chronic kidney disease, or unspecified chronic kidney disease (ICD-10 - I12.9) Feb, Type 2 diabetes mellitus with diabetic neuropathy, unspecified (ICD-10 - E11.40) [employer] Other 04-11-2023 Evaluation note* Encounter Date Diagnosis [...] have advised to continue with oral magnesium. [employer] Other 04-05-2023 Evaluation note* Encounter Date Diagnosis Assessment Notes Treatment Notes Treatment Clinical Notes Feb, Hyperlipidemia (ICD-10 - E78.5) [employer] Other 04-05-2023 Evaluation note* Encounter Date Diagnosis Assessment Notes Treatment Notes Treatment Clinical Notes Feb, Obstructive apnea (ICD-10 - G47.33) Feb, Insomnia (ICD-10 - G47.00) Feb, Neuropathy (ICD-10 - G62.9) [employer] Other 04-05-2023 NotePROCEDURE: XR FOOT LT MIN [...] Electronically authenticated by: BLANKA OLGUIN Date: 2023-03-04 06:39[facility]03-20-2023 Evaluation note* Encounter Date Diagnosis Assessment Notes Treatment Notes Treatment Clinical Notes Jan, Hypertensive chronic kidney disease with stage 1 through stage 4 chronic kidney disease, or unspecified chronic kidney disease (ICD-10 - I12.9) Jan, Diabetic neuropathy (ICD-10 - E11.40) [employer] Other 03-09-2023 Evaluation note* Encounter Date Diagnosis Assessment Notes Treatment Notes Treatment Clinical Notes Jan, Hyperuricemia (ICD-1 0 - E79.0) [employer] Other 03-08-2023 NotePROCEDURE: XR FOOT LT MIN [...] Electronically authenticated by: BRODERICK FLOR Date: 2023-02-04 09:36[facility]02-22-2023 NotePROCEDURE: XR FOOT LT MIN 3 [...] Electronically authenticated by: BLANKA OLGUIN Date: 2023-01-21 10:26[facility]02-20-2023 Evaluation note* Encounter Date Diagnosis Assessment Notes Treatment Notes Treatment Clinical Notes Dec, Diabetic neuropathy (ICD-10 - E11.40) [employer] Other 01-30-2023 NotePROCEDURE: XR FOOT LT MIN [...] Electronically authenticated by: BLANKA OLGUIN Date: 2022-12-29 17:33[facility]01-30-2023 NotePROCEDURE: XR FOOT LT MIN 3 [...] Date: 2022-12-29 17:33[id number] NotePROCEDURE: XR FOOT LT 2V HISTORY: Pain COMPARISON: XR foot bilateral 11/12/2022 FINDINGS: BONES:Multiple intraoperative spot fluoroscopic images demonstrate resection of the bases of the metatarsals followed by midfoot fusion via lag screws. Talocalcaneal fusion. SOFT TISSUES:Expected intraoperative findings. IMPRESSION: 1. Midfoot resection and fusion. 2. Talocalcaneal fusion. Electronically authenticated by: BLANKA OLGUIN Date: 2022-12-29 17:31[facility]01-24-2023 NoteEXAM: XR CHEST 2 V HISTORY: [...] Electronically authenticated by: ACOSTA JOHNSON Date: 2022-12-23 12:48[facility]11-29-2022 Evaluation note* Encounter Date Diagnosis Assessment Notes Treatment Notes Treatment Clinical Notes Sep, Encounter for immunization (ICD-10 - Z23) Patient presents today for Shingrix vaccination #1 of 2. Patient denies current acute illness, denies any past allergy or serious reaction to previousvaccine or ingredients. Shingrix Vaccine material and current VIS discussed and provided to patient. [employer] Other [id number] Evaluation note* Encounter Date Diagnosis Assessment Notes Treatment Notes Treatment Clinical Notes Sep, Encounter for immunization (ICD-10 - Z23) Patient denies current illness, previous allergic reaction to influenza vaccine, eggs, or other vaccines, and Guillain-[place] Syndrome. Patient given current editions of influenza Vaccine Information Statement (VIS). [employer] Other 11-17-2022 Evaluation note* Encounter Date Diagnosis Assessment Notes Treatment Notes Treatment Clinical Notes Sep, Hypertensive chronic kidney disease with stage 1 through stage 4 chronic kidney disease, or unspecified chronic kidney disease (ICD-10 - I12.9) [employer] Other 11-17-2022 Evaluation note* Encounter Date Diagnosis Assessment Notes Treatment Notes Treatment Clinical Notes Sep, Encounter for immunization (ICD-10 - Z23) Patient presents today for COVID-19 vaccination booster. Patient pre-vaccination form answers reviewed. Patient denies current illness or allergic reaction to any component of a COVD-19 vaccine. Patient provided with copy of current EUA. [employer] Other 10-26-2022 Evaluation note* Encounter Date Diagnosis [...] her to take a low phosphorus diet. [employer] Other 10-04-2022 Evaluation note* Encounter Date Diagnosis [...] E11.40) Pateint continues on the above medications. [employer] Other 09-08-2022 Evaluation note* Encounter Date Diagnosis Assessment Notes Treatment Notes Treatment Clinical Notes Jul, Diabetic neuropathy (ICD-10 - E11.40) [employer] Other 08-17-2022 Evaluation note* Encounter Date Diagnosis Assessment Notes Treatment Notes Treatment Clinical Notes Jun, Hyperlipidemia (ICD-10 - E78.5) Jun, CKD (chronic kidney disease) stage 3, GFR 30-59 ml/min (ICD-10 - N18.3) Jun, Essential hypertension (ICD-10 - I10) [employer] Other 08-03-2022 Evaluation note* Encounter Date Diagnosis Assessment Notes Treatment Notes Treatment Clinical Notes Jun, Type 2 diabetes mellitus with diabetic neuropathy, unspecified (ICD-10 - E11.40) [employer] Other 06-01-2022 Evaluation note* Encounter Date Diagnosis Assessment Notes Treatment Notes Treatment Clinical Notes Apr, Obstructive apnea (ICD-10 - G47.33) Apr, Insomnia (ICD-10 - G47.00) Apr, Neuropathy (ICD-10 - G62.9) [employer] Other 05-16-2022 Evaluation note* Encounter Date Diagnosis [...] Patient is to continue to follow with welding supervisor as scheduled. March, Shortness of breath (ICD-10 - R06.02) Patient is to continue to follow with the welding supervisor as scheduled. March, Parathyroid disease (ICD-10 - E21.5) Patient is to continue to follow with the specialist as scheduled. March, Charcot foot due to diabetes mellitus (ICD-10 - E11.610) Patient is to continue to follow with as scheduled. [employer] Other 05-09-2022 Evaluation note* Encounter Date Diagnosis Assessment Notes Treatment Notes Treatment Clinical Notes March, Type 2 diabetes mellitus with diabetic neuropathy, unspecified (ICD-10 - E11.40) March, Type 2 diabetes mellitus with hyperglycemia, without long-term current use of insulin (ICD-10 - E11.65) [employer] Other 03-24-2022 Evaluation note* Encounter Date Diagnosis [...] her to take a low phosphorus diet. [employer] Other 03-11-2022 Evaluation note* Encounter Date Diagnosis [...] her symptoms worsen. 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 I did provide a work note excuse today. Jan, Shortness of breath (ICD-10 - R06.02) In house EKG ordered and reviewed. Cardiac consult recommended as above. Jan, Diabetic neuropathy (ICD-10 - E11.40) Worsening bilateral neuropathy reported by the patient . she has been consulting with town planner who per patient has suggested it may [...] The patient encourged to follow up with relocation specialist as scheduled, discussion was had she would benefit from a pulmonary function test. [employer] Other 02-22-2022 Evaluation note* Encounter Date Diagnosis Assessment Notes Treatment Notes Treatment Clinical Notes Dec, Type 2 diabetes mellitus with diabetic neuropathy, unspecified (ICD-10 - E11.40) [employer] Other 01-04-2022 Evaluation note* Encounter Date Diagnosis [...] deficiency (ICD-10 - E55.9) Blood work ordered. [employer] Other 02-01-2015 History general Narrative - Reported* [...] necrotizing fasciitis 2017 Hospitalization History see above [employer] Other 02-01-2015 History general Narrative - Reported* [...] necrotizing fasciitis 2017 Hospitalization History see above [employer] Other 02-01-2015 History general Narrative - Reported* [...] necrotizing fasciitis 2017 Hospitalization History see above [employer] Other 02-01-2015 History general Narrative - Reported* [...] necrotizing fasciitis 2017 Hospitalization History see above [employer] Other 02-01-2015 History general Narrative - Reported* [...] necrotizing fasciitis 2017 Hospitalization History see above [employer] Other 02-01-2015 History general Narrative - Reported* [...] necrotizing fasciitis 2017 Hospitalization History see above [employer] Other 02-01-2015 History general Narrative - Reported* [...] necrotizing fasciitis 2017 Hospitalization History see above [employer] Other Evaluation noteN[employer] Other Evaluation noteNo InformationNort [employer] Other Evaluation noteNort [employer] Other evaluation noteNo assessment information available [facility] Work Phone: Evaluation note* Diagnosis Coronary artery disease, unspecified vessel or lesion type, unspecified whether angina present, unspecified whether timbi-sha shoshone or transplanted heart- Primary Essential hypertension Unspecified essential hypertension 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 Hyperlipidemia, unspecified hyperlipidemia type Obstructive sleep apnea syndrome Obstructive sleep apnea (adult) (pediatric) Class 2 obesity with body mass index (BMI) of 37.0 to 37.9 in adult, unspecified obesity type, unspecified whether serious comorbidity present Insulin-requiring or dependent type II diabetes mellitus ([facility]) Type II or unspecified type diabetes mellitus without mention of complication, not stated as uncontrolled documented in this encounter [facility] Work Phone: Evaluation note* Diagnosis Onset Date Resolution Status Chronic pain acute Inflammation of sacroiliac joint acute Osteoarthritis of spine with radiculopathy, lumbar region acute Trochanteric bursitis acute [facility] Work Phone: Evaluation note* Diagnosis Onset Date Resolution Status Chronic pain acute Inflammation of sacroiliac joint acute Osteoarthritis of spine with radiculopathy, lumbar region acute Trochanteric bursitis acute CKD (chronic kidney disease) stage 3, GFR 30-59 ml/min acute Hyperlipidemia acute Hyperparathyroidism acute [id number] acute Hyperuricemia acute Hypomagnesemia acute Nephrolithiasis acute Type 2 diabetes mellitus wit h diabetic chronic kidney disease acute [facility] Work Phone: Evaluation note* Diagnosis Onset Date Resolution Status Chronic pain acute Inflammation of sacroiliac joint acute Osteoarthritis of spine with radiculopathy, lumbar region acute Trochanteric bursitis acute CKD (chronic kidney disease) stage 3, GFR 30-59 ml/min acute Hyperlipidemia acute Hyperparathyroidism acute [id number] acute Hyperuricemia acute Hypomagnesemia acute Nephrolithiasis acute Type 2 diabetes mellitus wit h diabetic chronic kidney disease acute Chronic pain acute Lumbar muscle pain acute Osteoarthritis of spine with radiculopathy, lumbar region acute [facility] Work Phone: evaluation note* Diagnosis Onset Date Resolution Status CKD (chronic kidney disease) stage 3, GFR 30-59 ml/min acute Hyperlipidemia acute Hyperparathyroidism acute [id number] acute Hyperuricemia acute Hypomagnesemia acute Nephrolithiasis acute Type 2 diabetes mellitus wit h diabetic chronic kidney disease acute Chronic pain acute Lumbar muscle pain acute Osteoarthritis of spine with radiculopathy, lumbar region acute Chronic pain acute Osteoarthritis of spine with radiculopathy, lumbar region acute Sacroiliitis, not elsewhere classified acute [facility] Work Phone: evaluation note* Diagnosis Onset Date Resolution Status Chronic pain acute Lumbar muscle pain acute Osteoarthritis of spine with radiculopathy, lumbar region acute Chronic pain acute Osteoarthritis of spine with radiculopathy, lumbar region acute Sacroiliitis, not elsewhere classified acute [facility] Work Phone: evaluation note* Diagnosis Onset Date Resolution Status Chronic pain acute Lumbar muscle pain acute Osteoarthritis of spine with radiculopathy, lumbar region acute Chronic pain acute Osteoarthritis of spine with radiculopathy, lumbar region acute Sacroiliitis, not elsewhere classified acute Obstructive apnea acute [facility] Work Phone: evaluation note* Diagnosis Onset Date Resolution Status Chronic pain acute Lumbar muscle pain acute Osteoarthritis of spine with radiculopathy, lumbar region acute Chronic pain acute Osteoarthritis of spine with radiculopathy, lumbar region acute Sacroiliitis, not elsewhere classified acute Obstructive apnea acute Chronic pain acute Osteoarthritis of spine with radiculopathy, lumbar region acute Sacroiliitis, not elsewhere classified acute [facility] Work Phone: evaluation note* Diagnosis Onset Date Resolution Status Chronic pain acute Osteoarthritis of spine with radiculopathy, lumbar region acute Sacroiliitis, not elsewhere classified acute [facility] Work Phone: Evaluation note* Diagnosis Type 2 diabetes mellitus with peripheral neuropathy ([facility]/HCC)- Primary 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) Class 2 severe obesity due to excess calories with serious comorbidity and body mass index (BMI) of 39.0 to 39.9 in adult (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) Class 2 severe obesity due to excess calories with serious comorbidity and body mass index (BMI) of 39.0 to 39.9 in adult ([facility]) Long-term insulin use ([facility]) Spondylolisthesis at L3-L4 level Class 2 severe obesity due to excess calories with serious comorbidity and body mass index (BMI) of 38.0 to 38.9 in adult ([facility])- Primary Type 2 diabetes mellitus with both eyes affected by mild nonproliferative retinopathy without macular edema, with long-term current use of insulin ([facility]) Type 2 diabetes mellitus with peripheral neuropathy (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) Long-term insulin use ([facility]) Type 2 diabetes mellitus with peripheral neuropathy (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) Type 2 diabetes mellitus with both eyes affected by mild nonproliferative retinopathy without macular edema, with long-term current use of insulin ([facility]) Long-term insulin use ([facility]) Class 2 severe obesity due to excess calories with serious comorbidity and body mass index (BMI) of 39.0 to 39.9 in adult ([facility]) documented in this encounter [facility] HealthcareEvaluation note* Diagnosis Coronary artery disease, unspecified vessel or lesion type, unspecified whether angina present, unspecified whether [place] or transplanted heart Elevated coronary artery calcium [...] serious comorbidity present documented in this encounter [facility] Work Phone: Evaluation note* Author France Carlson [facility] Authored January 09, 2025 10:30am The above note written by ITZ Canchola acting as human recorder, note dictated by Dr. Charan Casey. 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) Class 2 severe obesity due to excess calories with serious comorbidity and body mass index (BMI) of 39.0 to 39.9 in adult ([facility]) Long-term insulin use (HCC) Spondylolisthesis at L3-L4 level Class 2 severe obesity due to excess calories with serious comorbidity and body mass index (BMI) of 38.0 to 38.9 in adult ([facility])- Primary Type 2 diabetes mellitus with both [...] (BMI) of 39.0 to 39.9 in adult ([facility]) 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 [...] (BMI) of 37.0 to 37.9 in adult (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)- Primary Type 2 diabetes mellitus with peripheral neuropathy ([facility]) Type 2 diabetes mellitus with both eyes affected by mild nonproliferative retinopathy without macular edema, with long-term current use of insulin (HCC) Long-term insulin use (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) Type 2 diabetes mellitus with both eyes affected by mild nonproliferative retinopathy without macular edema, with long-term current use of insulin (HCC) Long-term insulin use ([facility]) Class 2 severe obesity due to excess calories with serious comorbidity and body mass index (BMI) of 35.0 to 35.9 in adult ([facility]) [facility] Narrative - ReportedChapman Instruments Arrayit Other History general Narrative - ReportedAccendo [employer] Other Hospital Discharge instructions Additional Instructions DISCHARGE [...] NOT operate machinery such as power tools, [employer] mowers, snow blowers, sewing machines, etc. for [...] years. -Follow up with PCP. -Office number [phone]. [facility] Work Phone: Reason for referral (narrative)* Consultation (Routine) - Authorized Specialty Diagnoses / Procedures Referred By Contac t Referred To Contact Cardiology Diagnoses Coronary artery disease, unspecified vessel or lesion type, unspecified whether angina present, unspecified whether [place] or transplanted heart Procedures Follow Up In Cardiology Rosalinda Torres MD [address] [facility] 2, [address] [address] Rosalinda Torres MD [address], [address] [address] Referral ID Status Reason Start Date Expiration Date V isits Requested Visits Authorized [id number] Authorized 02/22/2024 02/21/2025 1 1 [facility] Work Phone: reason for referral (narrative)* Consultation (Routine) - Authorized Specialty Diagnoses / Procedures Referred By Contac t Referred To Contact Cardiology Diagnoses Coronary artery disease, unspecified vessel or lesion type, unspecified whether angina present, unspecified whether [place] or transplanted heart Procedures Follow Up In Cardiology Rosalinda Torres MD [address] [place] [address] 2, [address] [address] Rosalinda Torres MD [address] [place] [address] 2, [facility] [address] [place] [address] Referral ID Status Reason Start Date Expiration Date V isits Requested Visits Authorized [id number] Authorized 08/25/2024 08/25/2025 1 1 T [facility] Work Phone: reason for referral (narrative)No reason for referral [facility] Work Phone: Summary Purpose Family History [...] the patient is agreeable to go on yqsnaqumazac85 mg daily along with Zetia 10 mg [...] any trouble since her angioplasty. She has Luilztw-Chdtt-Snzzc disease and had recent surgery on the [...] has been compliant with it. * 7 Lpyiprs-Ydllq-Twhaa joint in the ankles status post recent surgery on the left foot with plan to repair the right foot down the road Reason for Referral Reason Patient is need ing to having screening colonoscopy. Please schedule with [facility]. Patient DOES NOT want to see Dr. Bryant. Please call patient to schedule Diagnosis 1 Screening for colon cancer (Z12.11) Referral Organization [facility] [place] Referring Provider First Name Charan Referring Provider Last Name Jacinto Referring Provider Specialty Family Giancarlo pop Referred Organization [facility] Gastroenterolo gy Referred Provider Yasmeen Treadwell Referred Address [address] [facility] ,[place], [place],[address] Referred Provider Specialty Gastroentero logy Referral Priority Routine General Notes ForeRenée M 023 10:30:05 AM >Received today and sent P2P Reason stat consult and lou at Diagnosis 1 Chest pressure (R07. 89) Diagnosis 2 Shortness of breath (R06.02) Diagnosis 3 Type 2 diabetes wicho itus with diabetic neuropathy, unspecified (E11.40) Diagnosis 4 Obstructive apnea (G 47.33) Referral Organization [facility] [place] Referring Provider First Name Charan Referring Provider Last Name Jacinto Referring Provider Specialty Family Giancarlo lord Referred Organization [facility] Referred Address [address] [facility] [address],[place], [place],[address] Referred Provider Specialty Cardiology Referral Priority Stat Referral Appointment Date 2022-03-14 Chief Complaint and Reason for Visit Chief Complaint zepeda on feet E11.40 E79.9 E78.5 N18.30 I12.9 E11.22 e11.610 Chief Complaint zepeda on feet E11.40 E79.9 E78.5 N18.30 I12.9 E11.22 e11.610 e11.610 Chief Complaint zeepda on feet E11.40 E79.9 E78.5 N18.30 I12.9 [...] stage 3, GFR 30-59 ml/min Hyperlipidemia Hyperparathyroidism [id number] Hyperuricemia Hypomagnesemia Nephrolithiasis Type 2 diabetes mellitus [...] stage 3, GFR 30-59 ml/min Hyperlipidemia Hyperparathyroidism [id number] Hyperuricemia Hypomagnesemia Nephrolithiasis Type 2 diabetes mellitus [...] stage 3, GFR 30-59 ml/min Hyperlipidemia Hyperparathyroidism [id number] Hyperuricemia Hypomagnesemia Nephrolithiasis Type 2 diabetes mellitus [...] stage 3, GFR 30-59 ml/min Hyperlipidemia Hyperparathyroidism [id number] Hyperuricemia Hypomagnesemia Nephrolithiasis Type 2 diabetes mellitus [...] Shoulder January 26, 2025 9:45am MRI RESULTS [facility] January 26, 2025 12:50pm Reason for Visit [...] :33am dementia concerns; bone structure; SOB F [facility] 2024 9:06am F/U 2ND LUMB MBB January 18, 2025 8:00am M75.101 January 23, 2025 12:43pm MRI RESULTS [facility] January 26, 2025 12:50pm Rotator cuff syndrom R Shoulder January 8:30am LAURA LUMB RFA L3 L5/CJ February 01, 2025 12:29pm Chief Complaint Admit Date R05.9 December 08, 2024 10 :46am acute illness/ CXR ordered/ per Dr. Casey December 09, 2024 10:00am F/U 1st LAURA LUMBAR MBB December 26 9:01am 8 WK RECHECK December 29, 2024 7 :33am dementia concerns; bone structure; [place] 20[facility] 9:06am F/U 2ND LUMB MBB January 18, 2025 8:00am M75.101 January 23, 2025 12:43pm MRI RESULTS [facility] January 26, 2025 12:50pm Rotator cuff syndrom [...] M75.101 January 23, 2025 12:43pm MRI RESULTS [facility] January 26, 2025 12:50pm Rotator cuff syndrom [...] M75.101 January 23, 2025 12:43pm MRI RESULTS [facility] January 26, 2025 12:50pm Rotator cuff syndrom [...] 8:03a m Sacroiliitis, not elsewhere classified [facility] 2024 8:03am Trochanteric bursitis May [...] 8:03a m Sacroiliitis, not elsewhere classified [facility] 2024 8:03am Trochanteric bursitis May 31, 2025 8:0 3am Chronic pain June 21, 2025 9:03 am Sacroiliitis, not elsewhere classified [facility] 2024 9:03am Trochanteric bursitis June [...] 8:03a m Sacroiliitis, not elsewhere classified [facility] 2024 8:03am Trochanteric bursitis May 31, 2025 8:0 3am Chronic pain June 21, 2025 9:03 am Sacroiliitis, not elsewhere classified [facility] 2024 9:03am Trochanteric bursitis June 21, 2025 9: 03am Diabetic foot ulcer associat ed with type 2 diabetes mellitus, with fat laye July 12, 2025 7:36am MRSA bacteremia July 12, 2025 7: 36am Oral thrush July 12, 2025 7: 36am Additional Source Comments INFORMATION SOURCE (unrecogn ized section and content) DATE CREATED AUTHOR 07/28/2018 [facility] DATE CREATED AUTHOR AUTHOR'S ORGANIZ ATION 03/18/2022 [facility] DATE CREATED AUTHOR AUTHOR'S ORGANIZ ATION 10/17/2022 [facility] DATE CREATED AUTHOR AUTHOR'S ORGANIZ ATION 04/13/2023 [facility] DATE CREATED AUTHOR AUTHOR'S ORGANIZ ATION 05/08/2023 [employer] DATE CREATED AUTHOR AUTHOR'S ORGANIZ ATION 05/08/2023 [facility] ical Center DATE CREATED AUTHOR AUTHOR'S ORGANIZ ATION 02/23/2024 [facility] DATE CREATED AUTHOR AUTHOR'S ORGANIZ ATION 06/09/2025 [facility] DATE CREATED AUTHOR AUTHOR'S ORGANIZ ATION 07/29/2025 [facility] dical Specialists EPIC REASON FOR VISIT (unrecogniz ed section and content) Reason Comments Follow-up 6m Specialty Diagnoses / Procedures Referred By Princess bird Referred To Contact Cardiology Diagnoses Coronary artery disease, unspecified vessel or lesion type, unspecified whether angina present, unspecified whether timbi-[place] shosh[place] or transplanted heart Procedures Follow Up In Cardiology Rosalinda Torres MD [address] [facility] 2, [address] [address] Rosalinda Torres MD [address] [facility] 2, [facility] [address] [place] [address] Referral ID Status Reason Start Date Expiration Date V isits Requested Visits Authorized [id number] Pending Review 02/22/2024 02/21/2025 1 1 Reason Comments Diabetes Reason Comments Follow-up [address] 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, back4 month Follow uppap issuesSHINGRIX #2 // [facility] TRADITIONAL PLAN THROUGH SPOUSESHINGRIX #1 // [facility] TRADITIONAL PLAN THROUGH SPOUSEMODERNA BIVALENT BOOSTERAFLURIA FLU VACCINECKD and HTNreview labSLEEP LABhosp recheck/ discuss disability processDocumentationFYI/ updateDisability paperworkEmployee Program F/UCKDPt no show Employee Diabetes Ed program 4/8Clinicalneuropathy, chest pressure ,SOBfyirefillsneeds [facility], [facility] [phone] Care Teams (unrecognized sec tion and content) Team Status: Active Member Role Status Josafat Casey , DO Primary Care Provider Active Team Status: Inactive Member Role Status Josafat Casey , DO Primary Care Provider Active Federico Sepulveda MD Attending Provider Active Team Status: Inactive Member Role Status Josafat Casey , DO Primary Care Provider Active Renée Watts [facility] Attending Provider Active Team Status: Inactive [...] DO Primary Care Provider Active Renée Watts [facility] Attending Provider Active Team Status: Inactive [...] Inactive Member Role Status Dates Blas Bellamy CHUTE OPERATOR-C Attending Provider Activ e Start: October 21, [...] December 30, 2023 End: December 30, 2023 Manager Winter Relationship Specialty Start Date End Date Charan Casey DO [address] [place] [address] PCP - General Family Medicine 02/22/24 Rosalinda Torres MD [address] [facility] 2, [address] [place] [id number] Consulting Physician Cardiology 02/22/24 Team Status: Inactive [...] October 19, 2024 End: October 19, 2024 Manager Winter Relationship Specialty Start Date End Date Charan Casey MD [address] [place] [phone] PCP - General 05/20/23 Moni Becker MD [address] [facility] [address] [place] [address] PCP - [facility] 07/31/24 11/29/24 Manager Winter Relationship Specialty Start Date End Date Charan Casey DO PCP - General Family Medicine 02/22/24 Rosalinda Torres MD [address] [place] [address] 2, [facility] [address] [place] [address] Consulting Physician Cardiology 02/22/24 Team Status: Inactive [...] January 09, 2025 End: January 09, 2025 Manager Winter Relationship Specialty Start Date End Date Charan Casey MD [address] [place] [phone] PCP - General 05/20/23 Team Status: Active [...] January 31, 2025 End: January 31, 2025 Manager Winter Relationship Specialty Start Date End Date Charan Casey DO [address] [place] [phone] PCP - General 05/20/23 Team Status: Inactive [...] July 12, 2025 End: July 12, 2025 Manager Winter Relationship Specialty Start Date End Date Charan Casey DO [address] [place] [phone] PCP - General 05/20/23 Manager Winter Relationship Specialty Start Date End Date Charan Casey DO [address] [place] [phone] PCP - General 05/20/23 Goals (unrecognized section [...] BE BASED ON THE PRIMARY CLINICAL RECORDS. [employer] [facility]. provides no warranty or guarantee of the accuracy or completeness of information in this document.
== END 2025-09-06 09:36 | disposition home or self-care (01) ==
LOC: WC 09:35
PROVIDERS: PCP Family Medicine; Visit Provider Podiatrist Foot & Ankle Surgery
DX: E11.621 Type 2 diabetes mellitus with foot ulcer (principal); L97.423 Non-pressure chronic ulcer of left heel and midfoot with necrosis of muscle
CPT/HCPCS: 29445

== ENCOUNTER 2025-09-13 09:11 | Outpatient (OUT) | payer MEDICARE, SELFPAY ==
--- OUTSIDE RECORDS SUMMARY | 2025-07-12 05:00 | XMS_ITS ---
Author Organization The [facility] in [place] Address [address] [place] [address] Care Team Providers Care Prosthodontist/Educator Name Role Phone Charan Delgadillo DO Primary Care Provider Torres Cid [facility] [phone] REASON FOR VISIT 1 year f/u Encounters Encounter Location Date Provider Diagnosis [facility] (PODIATRY) [address] [place] [address] [address] [place], [place] [address] 07/12/2025 Torres Fernandez Plan Of Treatment No Information Progress Notes * Corin COBBanithaDOB:1960 (64 yo F)Acc No.[id number]:07/12/2025 UNLOCKED PROGRESS NOTE Follow Up Patient: Joy CHAVEZ Provider: Dani Fernandez DPM, MS :1960 A ge:64 Y S ex:Female Date:07/12/2025 [address] [facility]-[address] Pcp:Charan Delgadillo DO Subjective: * Chief Complaints: * 1 . 1 year f/u. * Medical History: Objective: * Vitals: Assessment: Plan: * Treatment: * * Electronic signature of Agapito Fernandez DPM on 09/13/2025 at 09:16 AM EDT Sign off status: Pending Visit Status: O FF CANC (OFFICE CANCEL) * Provider: Dani Fernandez DPM, MS Date: 0 07/12/2025 Generated for Printi ng/Faxing/eTransmitting on: 1 09:16 AM EDT
--- OUTSIDE RECORDS SUMMARY | 2025-09-13 09:15 | XMS_ITS | Clinical Summary ---
Author Organization [facility] Healthcare Address [address] [facility] [place] [address] Care Team Providers Care Volunteer Services Manager Name Role Phone Charan Delgadillo DO Primary Care Provider [phone] Allergies Active Allergy Reactions Criticality Noted Date Comments Erythromycin Unknown 05/15/2025 Erythromycin Base Nausea Only 05/19/2023 Levofloxacin GI intolerance High 02/22/2024 Head ache Medications allopurinol (Zyloprim) 100 MG tablet Take 100 mg by mouth in the morning. 3 Active ASPIRIN 81 MG chewable tablet 1 (one) time each day at the same time. Active GNP Vitamin D Maximum Strength 50 MCG (1999 UT) tablet Take by mouth Daily. 3 Active metoprolol succinate XL (Toprol-XL) 200 MG 24 hr tablet 1 (one) time each day at the same time. Active Benicar 40 MG tablet 1 (one) time each day at the same time. Active omega-3 acid ethyl esters (Lovaza) 1 g capsule Take 2 g by mouth in the morning and 2 g before bedtime. 3 Active rosuvastatin (Crestor) 10 MG tablet TAKE 1 TABLET BY MOUTH ONCE DAILY ON mondays, wednesdays, AND fridays 2 Active pregabalin (Lyrica) 150 MG capsule Take 150 mg by mouth at bedtime Active Continuous Blood Gluc Client Service Administrator (Dexcom G7 Client Service Administrator) device USE DIRECTED 3 Active Continuous Blood Gluc Sensor (Dexcom G7 Sensor) misc USE DIRECTED, CHANGE EVERY 10 DAYS 3 Active Ascorbic Acid (vitamin C) 1000 MG tablet Take 1,000 mg by mouth in the morning. Active b complex vitamins capsule Take 1 capsule by mouth in the morning. Active Bioflavonoid Products (Brooke-C) tablet as directed Orally Active Coenzyme Q10 (CO Q 10 PO) Take by mouth Act jenna insulin pen needle 31G X 8 mm miscIndication s:Type 2 diabetes mellitus with peripheral neuropathy (HCC) Injection subcutaneous tid 100 each 3 5 026 Active insulin degludec (Tresiba FlexTouch) 200 UNIT/ML injectionIndic ations:Type 2 diabetes mellitus with peripheral neuropathy (HCC) Inject 30 Units under the skin Daily 9 mL 3 5 Active HumaLOG KWIKPEN 100 UNIT/ML injectionIndic ations:Type 2 diabetes mellitus with peripheral neuropathy (HCC) 10 units breakfast, 14 units dinner plus correction 1:30 > 150 mg/dl (max daily 50 units) 15 mL 3 5 Active insulin lispro (HumaLOG KWIKPEN) 100 UNIT/ML injectionIndic ations:Type 2 diabetes mellitus with peripheral neuropathy (HCC) 10 units breakfast, 14 units dinner plus correction 1:30 > 150 mg/dl (max daily 50 units) 15 mL 3 5 025 Discontin ued(Reord er) Active Problems Problem Noted Date Diagnosed Date [...] Type Department Care Team Description 08/15/2025 [facility]ill [facility] [address] [place] [address] Monica Tee LPN Type 2 diabetes mellitus with peripheral neuropathy (HCC) 07/27/2025 8:15 AM EDT Office Visit [facility] [address] [place] [address] Shaina Figueroa, DO Type 2 diabetes mellitus with peripheral neuropathy [...] (BMI) of 35.0 to 35.9 in adult ([facility]) 07/27/2025 Bamboo flowsheet [facility] [address] [place] [address] Shaina Figueroa DO 07/27/2025 Travel 07/26/2025 Travel 07/24/2025 Refill [facility] [address] [place] [address] Kmiberley Finn LPN Type 2 diabetes mellitus with peripheral neuropathy (HCC) 07/18/2025 Telephone [facility] [address] [place] [address] Nancy eHnriquez MA Home Health Care 06/15/2025 Telephone [facility] [address] [place] [address] Donna Dela Cruz MA Blood Sugar Problem [...] or ex-partner? No 07/26/2025 Social Connection and Isolation Panel Answer Date Recorded In a typical week, how many times do you talk on the phone with family, friends, or neighbors? More than three times a week 07/26/2025 How often do you get togethe r with friends or relatives? Once a week 07/26/2025 How often do you attend chur or hoahaoism services? More than 4 times per year 07/26/2025 Do you belong to any clubs o r organizations such as mandaeism groups, unions, fraternal or athletic groups, or [...] Recorded Patient Health Questionnaire-2 Score 0 05/15/2025 [facility] - Occupational Stress Questionnaire Answer Date Recorded [...] any time in the past 12 m [facility], were you homeless or living in [...] 10/24/2025 10:30 AM EST Office Visit [facility] [address] [place] [address] Shaina Figueroa DO [address] [place] [address] Health Maintenance Due Date Last Done Comments CT Colonography 1960 Colonoscopy 1960 Colorectal Cancer Screening 1960 FIT-DNA 1960 FIT 1960 FOBT 1960 Sigmoidoscopy 1960 Pap Smear 1981 Cervical Cancer Screening 1990 HPV/Cotest 1990 Mammogram 2000 Influenza Vaccine (#1) 2025 2, 08/30/2021, 08/30/2019, Additional history exists Insurance [employer] Care Teams Volunteer Services Manager Relationship Specialty Start Date End Date Charan Delgadillo DO [address] [place] [address] PCP - General 05/20/23
--- OUTSIDE RECORDS SUMMARY | 2025-09-13 09:15 | XMS_ITS | Encounter Summary ---
Author Organization [facility] Address [address] [place] [address] Phone Care Team Providers Care Qa Test Analyst Name Role Phone Yeison Delgadilloan Dani BASSETT Primary Care Provider [phone] Rosalinda Cordova MD Unavailable [phone] Encounter Details Date Type Department Care Team (Late st Contact Info) Description 12/08/2024 Scanned Document [facility] [address] [place] [address] Scanning, Generic Provider Social History [...] PM EST Office Visit [facility] [address] [address] Rosalinda Cordova MD [address] [facility] 2, [address] [place] [address] documented as of this encounter [...] documented as of this encounter Care Teams Qa Test Analyst Relationship Specialty Start Date End Date Charan Delgadillo DO PCP - General Family Medicine 02/22/24 Rosalinda Cordova MD [address] [facility] 2, [place] [id number] Consulting Physician Cardiology 02/22/24 documented as of this encounter
--- OUTSIDE RECORDS SUMMARY | 2025-09-13 09:15 | XMS_ITS | Encounter Summary ---
Author Organization [facility] Address [address] [place] [phone] Phone Care Team Providers Care Cycle Consultant Name Role Phone Charan Delgadillo DO Primary Care Provider [phone] Charan Delgadillo DO Primary Care Provider [phone] Rosalinda Cordova MD Unavailable [phone] Encounter Details Date Type Department Care Team (Late st Contact Info) Description 08/13/2022 Orders Only [facility] LE[facility] [address] [place] [address] Conversion, Onbase Social History Tobacco Use Types [...] Description 11/03/2025 2:30 PM EST Office Visit [facility] [address] [facility] [address] [place] [address] Rosalinda Cordova MD [address] [facility] [address], [address] [place] [address] Scheduled Orders Name Type Priority Associated Diagnoses Orde r Schedule OUTSIDE LAB SCAN Lab Ordered: 08/13/2022 documented as of this encounter Visit Diagnoses Not on filedocumented in this encounter Care Teams Cycle Consultant Relationship Specialty Start Date End Date Charan Delgadillo DO PCP - General 07/09/20 02/21/24 Charan Delgadillo DO PCP - General Family Medicine 02/22/24 Rosalinda Cordova MD [address] [facility] [address], [place] [address] Consulting Physician Cardiology 02/22/24 documented as of this encounter
--- OUTSIDE RECORDS SUMMARY | 2025-09-13 09:15 | XMS_ITS | Clinical Summary ---
Author Organization [facility] Address [address] [place] [address] Phone Care Team Providers Care Black Topper Name Role Phone Charan Delgadillo DO Primary Care Provider [phone] Rosalinda Cordova MD Unavailable [phone] Allergies Active Allergy Reactions Criticality Noted Date [...] daily. Active ergocalciferol (Vitamin D-2) 1.25 MG (96232 UT) capsule Take 1 capsule (50,000 Units) [...] 10 mg tabletIndications :Atherosclerotic heart disease of [place] coronary artery without angina pectoris Take 1 [...] coronary artery calcium score 4 Diabetes mellitus 12/04/2023 Essential hypertension 12/04/2023 Hyperlipidemia 12/04/2023 Obstructive [...] 11/03/2025 2:30 PM EST Office Visit [facility] [address] [facility] [address] [place] [address] Rosalinda Cordova MD 703 [facility], [address] [place] [address] Health Maintenance Due Date Last Done Comments [...] patient's age to complete this topic Insurance [facility] [employer] MEDICARE [employer] [place] MED[employer]ARE [facility] [employer] MEDICARE [employer] [place] MED[employer] Care Teams Black Topper Relationship Specialty Start Date End Date Charan Delgadillo DO PCP - General Family Medicine 02/22/24 Rosalinda Cordova MD 703 [facility] 2, [address] [address] Consulting Physician Cardiology 02/22/24
--- OUTSIDE RECORDS SUMMARY | 2025-09-13 09:15 | XMS_ITS | Encounter Summary ---
Author Organization [facility] Address [address] [place] [address] Phone Care Team Providers Care Cover Assembler Name Role Phone Charan Delgadillo DO Primary Care Provider [phone] Charan Delgadillo DO Primary Care Provider [phone] Rosalinda Cordova MD Unavailable [phone] Encounter Details Date Type Department Care Team (Late st Contact Info) Description 12/30/2023 Scanned Document [facility] [address] [place] [address] Scanning, Generic Provider Social History Tobacco Use [...] EST Office Visit [facility] [address] [facility] [address] [place] [address] Rosalinda Cordova MD [address] [facility] 2, [address] [place] [address] documented as of this encounter Procedures Procedure Name Priority Date/Time Associated Diagnosis Comments OUTSIDE IMAGING SCAN 12/30/2023 documented in this encounter Results * OUTSIDE IMAGING SCAN (12/30/2023) Anatomical Region Laterality Modality Other Narrative 12/30/2023 Ordered by an unspecified provider. us Generic Provider Scanning OUTSIDE SCAN Final Result documented in this encounter Visit Diagnoses Not on filedocumented in this encounter Care Teams Cover Assembler Relationship Specialty Start Date End Date Charan Delgadillo DO PCP - General 07/09/20 02/21/24 Charan Delgadillo DO PCP - General Family Medicine 02/22/24 Rosalinda Cordova MD [address] [facility] 2, [address] [address] Consulting Physician Cardiology 02/22/24 documented as of this encounter
--- OUTSIDE RECORDS SUMMARY | 2025-09-13 09:15 | XMS_ITS | Encounter Summary ---
Author Organization [facility] Address [address] [place] [phone] Phone Care Team Providers Care Accounting Administrative Assistant Name Role Phone Charan Delgadillo DO Primary Care Provider [phone] Charan Delgadillo DO Primary Care Provider [phone] Rosalinda Cordova MD Unavailable [phone] Encounter Details Date Type Department Care Team (Late st Contact Info) Description 04/30/2022 Orders Only [facility] LEGACY [address] [place] [address] Conversion, Onbase Social History Tobacco Use Types [...] Office Visit [facility] [address] [facility] [address] [place] [address] Rosalinda Cordova MD [address] [facility] [address], [address] [place] [address] Scheduled Orders Name Type Priority Associated Diagnoses Orde r Schedule SLEEP STUDY ORDER - ONBASE SCAN Sleep Center Ordered: 022 documented as of this encounter Visit Diagnoses Not on filedocumented in this encounter Care Teams Accounting Administrative Assistant Relationship Specialty Start Date End Date Charan Delgadillo DO PCP - General 07/09/20 02/21/24 Charan Delgadillo DO PCP - General Family Medicine 02/22/24 Rosalinda Cordova MD [address] [facility] [address], [place] [address] Consulting Physician Cardiology 02/22/24 documented as of this encounter
--- OUTSIDE RECORDS SUMMARY | 2025-09-13 09:15 | XMS_ITS | Encounter Summary ---
Author Organization [facility] Address [address] [place] [address] Phone Care Team Providers Care Director Of Early Childhood Name Role Phone Charan Delgadillo DO Primary Care Provider [phone] Charan Delgadillo DO Primary Care Provider [phone] Rosalinda Cordova MD Unavailable [phone] Encounter Details Date Type Department Care Team (Late st Contact Info) Description 11/26/2023 Scanned Document [facility] [address] [place] [address] Scanning, Generic Provider Social History Tobacco Use [...] PM EST Office Visit [facility] [address] [facility] [address] [place] [address] Rosalinda Cordova MD [address] [facility] 2, [address] [place] [address] documented as of this encounter Visit Diagnoses Not on filedocumented in this encounter Care Teams Director Of Early Childhood Relationship Specialty Start Date End Date Charan Delgadillo DO PCP - General 07/09/20 02/21/24 Charan Delgadillo DO PCP - General Family Medicine 02/22/24 Rosalinda Cordova MD [address] [facility] 2, [place] [address] Consulting Physician Cardiology 02/22/24 documented as of this encounter
--- OUTSIDE RECORDS SUMMARY | 2025-09-13 09:15 | XMS_ITS | Encounter Summary ---
Author Organization [facility] Address [address] [facility] [place] [address] Care Team Providers Care Cosmetic Assembler Name Role Phone Brysonbryn Charan Dani BASSETT Primary Care Provider [phone] Shaina Figueroa DO Unavailable [phone] Moni Becker MD Unavailable [phone] Encounter Details Date Type Department Care Team (Late st Contact Info) Description 05/19/2023 Abstract [facility] [address] [facility] [address] [place] [address] Jo Pringle LPN [address] [facility] [place] [address] [place] [address] Social History Tobacco Use Types Packs/Day Years [...] [address] [place] [address] Shaina Figueroa DO [address] [place] [address] documented as of this encounter Visit Diagnoses Not on filedocumented in this encounter Care Teams Cosmetic Assembler Relationship Specialty Start Date End Date Charan Delgadillo DO [address] [place] [address] PCP - General 05/20/23 Shaina Figueroa DO [address] [place] [address] PCP - [facility] [place] 04/30/23 02/06/24 Moni Becker MD [address] [place] [address] PCP - [facility] 07/31/24 11/29/24 documented as of this encounter
--- OUTSIDE RECORDS SUMMARY | 2025-09-13 09:15 | XMS_ITS | Encounter Summary ---
Author Organization [facility] Address [address] [place] [address] Phone Care Team Providers Care Binding Printer Name Role Phone Yeison Delgadilloan Dani BASSETT Primary Care Provider [phone] Rosalinda Cordova MD Unavailable Encounter Details Date Type Department Care Team (Late st Contact Info) Description 02/29/2024 Scanned Document [facility] [address] [place] [address] Scanning, Generic Provider Social History [...] EST Office Visit [facility] 703 [facility] [address] [place] [address] Rosalinda Cordova MD 703 [facility] [address], [address] [place] [address] documented as of this encounter Visit Diagnoses Not on filedocumented in this encounter Additional Health Concerns Assessment Noted Time A fall risk assessment has been complete d for the patient 02/22/2024 2:26 PM EDT documented as of this encounter Care Teams Binding Printer Relationship Specialty Start Date End Date Charan Delgadillo DO PCP - General Family Medicine 02/22/24 Rosalinda Cordova MD 703 [facility] 2, [place] [address] Consulting Physician Cardiology 02/22/24 documented as of this encounter
--- OUTSIDE RECORDS SUMMARY | 2025-09-13 09:15 | XMS_ITS | Encounter Summary ---
Author Organization [facility] Address [address] [place] [phone] Phone Care Team Providers Care Retail Sales Director Name Role Phone Charan Delgadillo DO Primary Care Provider [phone] Charan Delgadillo DO Primary Care Provider [phone] Rosalinda Cordova MD Unavailable [phone] Encounter Details Date Type Department Care Team (Late st Contact Info) Description 06/19/2020 Orders Only [facility] LE[facility] [address] [place] [address] Conversion, Onbase Social History Tobacco Use Types [...] EST Office Visit [facility] [address] [address] Rosalinda Cordova MD [address] [facility] [address], [address] [place] [address] Scheduled Orders Name Type Priority Associated Diagnoses Orde r Schedule OUTSIDE LAB SCAN Lab Ordered: 06/19/2020 documented as of this encounter Visit Diagnoses Not on filedocumented in this encounter Care Teams Retail Sales Director Relationship Specialty Start Date End Date Charan Delgadillo DO PCP - General 07/09/20 02/21/24 Charan Delgadillo DO PCP - General Family Medicine 02/22/24 Rosalinda Cordova MD 703 [facility] 2, [place] [address] Consulting Physician Cardiology 02/22/24 documented as of this encounter
--- OUTSIDE RECORDS SUMMARY | 2025-09-13 09:15 | XMS_ITS | Encounter Summary ---
Author Organization [facility] Address [address] [place] [phone] Phone Care Team Providers Care Movement Therapist Name Role Phone Charan Delgadillo DO Primary Care Provider [phone] Charan Delgadillo DO Primary Care Provider [phone] Rosalinda Cordova MD Unavailable [phone] Encounter Details Date Type Department Care Team (Late st Contact Info) Description 04/17/2020 Orders Only [facility] [address] [place] [address] Conversion, Onbase Social History Tobacco Use Types [...] EST Office Visit [facility] [address] [address] Rosalinda Cordova MD [address] [facility] [address], [address] [place] [address] Scheduled Orders Name Type Priority Associated Diagnoses Orde r Schedule OUTSIDE LAB SCAN Lab Ordered: 04/17/2020 documented as of this encounter Visit Diagnoses Not on filedocumented in this encounter Care Teams Movement Therapist Relationship Specialty Start Date End Date Charan Delgadillo DO PCP - General 07/09/20 02/21/24 Charan Delgadillo DO PCP - General Family Medicine 02/22/24 Rosalinda Cordova MD 703 [facility] 2, [place] [address] Consulting Physician Cardiology 02/22/24 documented as of this encounter
--- OUTSIDE RECORDS SUMMARY | 2025-09-13 09:15 | XMS_ITS | Patient Health Record ---
Author Organization [facility] [place] [facility] [place] Address [address] [place] [address] Care Team Providers Care Laundry Manager Name Role Phone Charan Delgadillo DO Primary Care Provider Torres Cid [phone] Allergies Allergen (clinical drug ingredient) Drug/Non Drug [...] Once a day; Duration: 30 day(s) Active Banks 3 1000 MG 1 capsule Orally Onc [...] ulcer due to type 2 diabetes mellitus (2334385198283) 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.621) Active confirmed Problem Ingrowing nail (340064024) Ingrowing nail (L60.0) Active confirmed Problem Chronic ulcer of david t (790286811) 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) Active confirmed Problem Non-pressure chr onic ulcer of other part of left foot limited to breakdown of skin (L97.521) Active confirmed Problem Arthropathy associated with a neurological disorder (20910251) Charcot's joint, right ankle and foot (M14.671) Active confirmed Problem Localized, primary osteoarthritis of the ankle and/or foot (745340555) Primary osteoarthritis, left ankle and foot (M19.072) Active confirmed Problem Acquired hammer toe of left foot (3646216497914242) Other hammer toe(s) (acquired), left foot (M20.42) Active confirmed Problem Deformity of lower leg (502513002) Other specified acquired deformities of right lower leg (M21.861) Active confirmed Problem Arthralgia of the ankle and/or foot (805621743) Pain in right ankle and joints of right foot (M25.571) Active confirmed Problem Arthralgia of the ankle and/or foot (673202391) Pain in left ankle and joints of left foot (M25.572) Active confirmed Problem Pain in right foot (895265996282476) Pain in right foot (M79.671) Active confirmed Problem Pain in left foot (209892858165158) Pain in left foot (M79.672) Active confirmed Problem Pseudarthrosis after fusion or arthrodesis (363622605) Pseudarthrosis after fusion or arthrodesis (M96.0) Active confirmed Problem Pain associated with internal prosthetic device (disorder) (738372892) Pain due to internal orthopedic prosthetic devices, implants and grafts, initial encounter (T84.84XA) Active confirmed Problem Hypertension (55612042) HTN (hypertension) (I10) Active confirmed Problem Diabetic nephropathy (358809250) Diabetic nephropathy (E11.21) Active confirmed Problem Heart disease (99970440) Heart disease (I51.9) Active confirmed Problem Arthropathy associated with a neurological disorder (90647522) Charcot's joint of left foot (M14.672) Active confirmed Problem Dehiscence of surgical wound (disorder) (30772273) Postoperative wound dehiscence, subsequent encounter (T81.31XD) Active confirmed Problem Non-pressure chr onic ulcer of left heel and midfoot limited to breakdown of skin (L97.421) Active confirmed Problem Hypercholesterolemia (94016810) Hypercholesterolemia (E78.00) Active confirmed Problem Arthropathy associated with a neurological disorder (37027054) Charcot's joint of right foot (M14.671) Active confirmed Problem Acquired abducti on deformity of left foot (M21.6X2) Active confirmed Problem Diabetes mellitus (20228857) Diabetes mellitus (E11.9) Active confirmed Plan Of Treatment Pending Test Test Name Order Date POINT OF CARE GLUCOSE 04/13/2023 PROF CHEM 8 (BAS METB) 03/31/2023 XR foot LAURA min 3V 06/22/2024 Insurance Providers Payer Name Payer Address Payer Phone Subscriber Number Group Number Insured Name Patient Relationship to Insured Coverage Start Date Coverage End Date [address] [place], [place] [id number] [phone] [id number] Joy Asher Self - patient is the [...]
--- OUTSIDE RECORDS SUMMARY | 2025-09-13 09:15 | XMS_ITS | Encounter Summary ---
Author Organization [facility] Address [address] [place] [id number] Phone Care Team Providers Care Chief Design Branch Name Role Phone Charan Delgadillo DO Primary Care Provider [phone] Charan Delgadillo DO Primary Care Provider [phone] Rosalinda Cordova MD Unavailable [phone] Encounter Details Date Type Department Care Team (Late st Contact Info) Description 03/06/2023 Orders Only [facility] LE[facility]Y [address] [place] [address] Conversion, Onbase Social History Tobacco Use Types [...] Description 11/03/2025 2:30 PM EST Office Visit [facility] 703 [facility] 250 [place] [address] Rosalinda Cordova MD 703 [facility] 2, [address] [place] [address] Scheduled Orders Name Type Priority Associated Diagnoses Orde r Schedule OUTSIDE LAB SCAN Lab Ordered: 03/06/2023 documented as of this encounter Visit Diagnoses Not on filedocumented in this encounter Care Teams Chief Design Branch Relationship Specialty Start Date End Date Charan Delgadillo DO PCP - General 07/09/20 02/21/24 Charan Delgadillo DO PCP - General Family Medicine 02/22/24 Rosalinda Cordova MD 703 [facility] 2, [place] [address] Consulting Physician Cardiology 02/22/24 documented as of this encounter
--- OUTSIDE RECORDS SUMMARY | 2025-09-13 09:16 | XMS_ITS | Encounter Summary ---
Author Organization [facility] Address [address] [facility] [place] [address] Care Team Providers Care Lead Fabricator Name Role Phone BrysonCharan clemente Dani BASSETT Primary Care Provider [phone] Shaina Figueroa DO Unavailable [phone] Moni Becker MD Unavailable [phone] Encounter Details Date Type Department Care Team (Late st Contact Info) Description 05/20/2023 Abstract [facility] [address] [facility] [address] [place] [address] Luisito Seymour DPM [address] [facility] 100 [place] [address] Social History Tobacco Use Types Packs/Day Years [...] [address] [place] [address] [place] [address] Shaina Figueroa DO [address] [facility] 230 [place] [address] documented as of this encounter Visit Diagnoses Not on filedocumented in this encounter Care Teams Lead Fabricator Relationship Specialty Start Date End Date Charan Delgadillo DO [address] [place] [address] PCP - General 05/20/23 Shaina Figueroa DO [address] [facility] 230 [place] [address] PCP - Medical [facility] 04/30/23 02/06/24 Moni Becker MD [address] [facility] 120 [place] [address] PCP - [facility] 07/31/24 11/29/24 documented as of this encounter
--- OUTSIDE RECORDS SUMMARY | 2025-09-13 09:17 | XMS_ITS | Encounter Summary ---
Author Organization [facility] Address [address] [place] [address] Care Team Providers Care Patent Legal Assistant Name Role Phone Brysonbryn Charan Louise DO Primary Care Provider [phone] Encounter Details Date Type Department Care Team (Late st Contact Info) Description 05/09/2025 Abstract [facility] 230 [address] [facility] 230 [place] [address] Shaina Figueroa DO [address] [facility] 230 [place] [address] Social History Tobacco Use Types Packs/Day Years Used Date Smoking Tobacco: Never Smokeless Tobacco: Never Alcohol Use Standard Drinks/Week Comments Never 0 (1 standard drink = 0.6 oz pure alcohol) caffeine: 1-2 cups per day coffee Social Connection and Isolation Panel Answer Date Recorded In a typical week, how many times do you talk on the phone with family, friends, or neighbors? More than three times a week 02/08/2024 How often do you get togethe r with friends or relatives? More than three times a week 02/08/2024 How often do you attend chur ch or alevism services? More than 4 times per year [...] Recorded Patient Health Questionnaire-2 Score 0 02/14/2025 [facility] ional [facility] [...] place to sleep or slept in a group home (including now)? No 02/08/2024 Comments Unknown [...] [address] [place] [address] [place] [address] Shaina Figueroa DO [address] [place] [address] [place] [address] documented as of this encounter Visit Diagnoses Not on filedocumented in this encounter Care Teams Patent Legal Assistant Relationship Specialty Start Date End Date Charan Delgadillo DO [address] [place] [address] PCP - General 05/20/23 documented as of this encounter
--- OUTSIDE RECORDS SUMMARY | 2025-09-13 09:17 | XMS_ITS | Encounter Summary ---
Author Organization [facility] Address [address] [place] [address] Care Team Providers Care Loft Worker Head Name Role Phone Brysonbryn Charan Louise DO Primary Care Provider [phone] Encounter Details Date Type Department Care Team (Late st Contact Info) Description 02/24/2025 Abstract [facility] 230 [address] [facility] 230 [place] [address] Shaina Figueroa DO [address] [facility] 230 [place] [address] Social History Tobacco Use Types Packs/Day Years [...] often do you attend chur ch or adventist services? More than 4 times per year 02/08/2024 Do you belong to any clubs o r organizations such as gnosticist groups, unions, fraternal [...] Recorded Patient Health Questionnaire-2 Score 0 02/14/2025 [facility] Occupat ional Health - [...] in a fdc (including now)? No 02/08/2024 Comments Unknown Sex [...] [address] [place] [address] [place] [address] Shaina Figueroa DO [address] [place] [address] [place] [address] documented as of this encounter Visit Diagnoses Not on filedocumented in this encounter Care Teams Loft Worker Head Relationship Specialty Start Date End Date Charan Delgadillo DO [address] [place] [address] PCP - General 05/20/23 documented as of this encounter
--- OUTSIDE RECORDS SUMMARY | 2025-09-13 09:17 | XMS_ITS | Encounter Summary ---
Author Organization [facility] Address [address] [place] [address] Care Team Providers Care Grout Worker Name Role Phone Brysonbryn Charan Louise DO Primary Care Provider [phone] Encounter Details Date Type Department Care Team (Late st Contact Info) Description 02/24/2025 Abstract [facility] 230 [address] [facility] 230 [place] [address] Shaina Figueroa DO [address] [facility] 230 [place] [address] Social History Tobacco Use Types Packs/Day Years [...] often do you attend chur ch or latter-day services? More than 4 times per year 02/08/2024 Do you belong to any clubs o r organizations such as gnosticism groups, unions, fraternal or athletic groups, or [...] Recorded Patient Health Questionnaire-2 Score 0 02/14/2025 [facility] of Occupat ional Health - Occupational [...] [address] [place] [address] [place] [address] Shaina Figueroa DO [address] [place] [address] [place] [address] documented as of this encounter Visit Diagnoses Not on filedocumented in this encounter Care Teams Grout Worker Relationship Specialty Start Date End Date Charan Delgadillo DO [address] [place] [address] PCP - General 05/20/23 documented as of this encounter
--- OUTSIDE RECORDS SUMMARY | 2025-09-13 09:17 | XMS_ITS | Encounter Summary ---
Author Organization [facility] Address [address] [place] [address] Care Team Providers Care Butt Trimmer Name Role Phone Brysonbryn Charan Louise DO Primary Care Provider [phone] Encounter Details Date Type Department Care Team (Late st Contact Info) Description 04/03/2025 Abstract [facility] 230 [address] [facility] 230 [place] [address] Shaina Figueroa DO [address] [facility] 230 [place] [address] Social History Tobacco Use Types Packs/Day Years [...] often do you attend chur ch or advent services? More than 4 times per year 02/08/2024 Do you belong to any clubs o r organizations such as restorationist groups, unions, fraternal or athletic groups, or [...] Recorded Patient Health Questionnaire-2 Score 0 02/14/2025 [facility] Occupat ional Health - Occupational [...] [address] [place] [address] [place] [address] Shaina Figueroa DO [address] [place] [address] [place] [address] documented as of this encounter Visit Diagnoses Not on filedocumented in this encounter Care Teams Butt Trimmer Relationship Specialty Start Date End Date Charan Delgadillo DO [address] [place] [address] PCP - General 05/20/23 documented as of this encounter
--- OUTSIDE RECORDS SUMMARY | 2025-09-13 09:17 | XMS_ITS | Encounter Summary ---
Author Organization [facility] Address [address] [place] [id number] Phone Care Team Providers Care Rod Finisher Name Role Phone Charan Delgadillo DO Primary Care Provider [phone] Charan Delgadillo DO Primary Care Provider [phone] Rosalinda Cordova MD Unavailable [phone] Encounter Details Date Type Department Care Team (Late st Contact Info) Description 11/19/2021 Orders Only [facility] [address] [place] [address] Conversion, Onbase Social History Tobacco Use Types [...] Description 11/03/2025 2:30 PM EST Office Visit [facility] 703 [facility] 250 [place] [address] Rosalinda Cordova MD 703 [facility] 2, [address] [place] [address] Scheduled Orders Name Type Priority Associated Diagnoses Orde r Schedule OUTSIDE LAB SCAN Lab Ordered: 11/19/2021 documented as of this encounter Visit Diagnoses Not on filedocumented in this encounter Care Teams Rod Finisher Relationship Specialty Start Date End Date Charan Delgadillo DO PCP - General 07/09/20 02/21/24 Charan Delgadillo DO PCP - General Family Medicine 02/22/24 Rosalinda Cordova MD 703 [facility] 2, [place] [address] Consulting Physician Cardiology 02/22/24 documented as of this encounter
--- OUTSIDE RECORDS SUMMARY | 2025-09-13 09:17 | XMS_ITS | Encounter Summary ---
Author Organization [facility] Address [address] [facility] [place] [address] Care Team Providers Care Medical Csr Name Role Phone Leona Charan Louise DO Primary Care Provider [phone] Moni Becker MD Unavailable [phone] Encounter Details Date Type Department Care Team (Late st Contact Info) Description 02/15/2024 Abstract [facility] 230 [address] [facility] [place] [place] [address] Shaina Figueroa, [address] [facility] 230 [place] [address] Social History Tobacco Use Types Packs/Day Years [...] often do you attend chur ch or quaker services? More than 4 times per year [...] Recorded Patient Health Questionnaire-2 Score 0 10/12/2023 [facility] Occupat ional Health - [...] [address] [place] [address] [place] [address] Shaina Figueroa DO [address] [place] [address] [place] [address] documented as of this encounter Visit Diagnoses Not on filedocumented in this encounter Care Teams Medical Csr Relationship Specialty Start Date End Date Charan Delgadillo DO [address] [place] [address] PCP - General 05/20/23 Moni Becker MD [address] [place] [address] [place] [address] PCP - [facility] 07/31/24 11/29/24 documented as of this encounter
--- OUTSIDE RECORDS SUMMARY | 2025-09-13 09:17 | XMS_ITS | Encounter Summary ---
Author Organization [facility] Address [address] [place] [address] Care Team Providers Care Plumbing Service Technician Name Role Phone Brysonbryn Charan Dani BASSETT Primary Care Provider [phone] Encounter Details Date Type Department Care Team (Late st Contact Info) Description 04/28/2025 Abstract [facility] [address] [facility] 230 [place] [address] Shaina Figueroa DO [address] [facility] 230 [place] [address] Social History Tobacco Use Types Packs/Day Years [...] often do you attend chur ch or protestant services? More than 4 times per year 02/08/2024 Do you belong to any clubs o r organizations such as alevism groups, unions, fraternal or athletic groups, or [...] Recorded Patient Health Questionnaire-2 Score 0 02/14/2025 [facility] Occupat ional Health - [...] place to sleep or slept in a custodial (including now)? No 02/08/2024 Comments Unknown Sex [...] [address] [place] [address] [place] [address] Shaina Figueroa DO [address] [place] [address] [place] [address] documented as of this encounter Visit Diagnoses Not on filedocumented in this encounter Care Teams Plumbing Service Technician Relationship Specialty Start Date End Date Charan Delgadillo DO [address] [place] [address] PCP - General 05/20/23 documented as of this encounter
--- OUTSIDE RECORDS SUMMARY | 2025-09-13 09:17 | XMS_ITS | Encounter Summary ---
Author Organization [facility] Address [address] [facility] [place] [address] Care Team Providers Care Recordings Librarian Name Role Phone Leona Charan Louise DO Primary Care Provider [phone] Moni Becker MD Unavailable [phone] Encounter Details Date Type Department Care Team (Late st Contact Info) Description 09/05/2024 Abstract [facility] 230 [address] [facility] [place] [address] [place] [address] Shaina Figueroa, [address] [facility] 230 [place] [address] Social History Tobacco Use Types Packs/Day Years [...] often do you attend chur ch or jew services? More than 4 times per year 02/08/2024 Do you belong to any clubs o r organizations such as uatsdin groups, unions, fraternal or athletic groups, or [...] Recorded Patient Health Questionnaire-2 Score 0 10/12/2023 [facility] of Occupat ional Health - [...] [address] [place] [address] [place] [address] Shaina Figueroa DO [address] [place] [address] [place] [address] documented as of this encounter Visit Diagnoses Not on filedocumented in this encounter Care Teams Recordings Librarian Relationship Specialty Start Date End Date Charan Delgadillo DO [address] [place] [address] PCP - General 05/20/23 Moni Becker MD [address] [place] [place] [address] PCP - [facility] 07/31/24 11/29/24 documented as of this encounter
--- OUTSIDE RECORDS SUMMARY | 2025-09-13 09:17 | XMS_ITS | Encounter Summary ---
Author Organization [facility] Address [address] [facility] [place] [address] Care Team Providers Care Inventory Management Specialist Name Role Phone Leona Charan Louise DO Primary Care Provider [phone] Moni Becker MD Unavailable [phone] Encounter Details Date Type Department Care Team (Late st Contact Info) Description 04/21/2024 Orders Only [facility] 230 [address] [facility] [place] [address] [place] [address] Shaina Figueroa, DO [address] [facility] [address] [place] [address] Social History Tobacco Use Types [...] any clubs o r organizations such as moravian groups, unions, fraternal or athletic groups, or [...] Recorded Patient Health Questionnaire-2 Score 0 10/12/2023 [facility] Occupat ional Health - [...] [address] [place] [address] [place] [address] Shaina Figueroa DO [address] [place] [address] [place] [address] documented as of this encounter Procedures Procedure [...] on filedocumented in this encounter Care Teams Inventory Management Specialist Relationship Specialty Start Date End Date Charan Delgadillo DO [address] [place] [address] PCP - General 05/20/23 Moni Becker MD [address] [place] [address] [place] [address] PCP - C 07/31/24 11/29/24 documented as of this encounter
--- OUTSIDE RECORDS SUMMARY | 2025-09-13 09:17 | XMS_ITS | Encounter Summary ---
Author Organization [facility] Address [address] [place] [address] Care Team Providers Care Furniture Restorer Name Role Phone Brysonbryn Charan Louise DO Primary Care Provider [phone] Encounter Details Date Type Department Care Team (Late st Contact Info) Description 01/05/2025 Abstract [facility] 230 [address] [facility] 230 [place] [address] Shaina Figueroa DO [address] [facility] 230 [place] [address] Social History Tobacco Use Types Packs/Day Years [...] often do you attend chur ch or voodoo services? More than 4 times per year 02/08/2024 Do you belong to any clubs o r organizations such as jewish groups, unions, fraternal or athletic groups, or [...] Recorded Patient Health Questionnaire-2 Score 0 10/17/2024 [facility] of Occupat ional [facility] - Occupational Stress Questionnaire Answer Date [...] [address] [place] [address] [place] [address] Shaina Figueroa DO [address] [place] [address] [place] [address] documented as of this encounter Visit Diagnoses Not on filedocumented in this encounter Care Teams Furniture Restorer Relationship Specialty Start Date End Date Charan Delgadillo DO [address] [place] [address] PCP - General 05/20/23 documented as of this encounter
--- OUTSIDE RECORDS SUMMARY | 2025-09-13 09:17 | XMS_ITS | Encounter Summary ---
Author Organization [facility] Address [address] [facility] [place] [address] Care Team Providers Care Hub Borer Name Role Phone Leona Charan Louise DO Primary Care Provider [phone] Moni Becker MD Unavailable [phone] Encounter Details Date Type Department Care Team (Late st Contact Info) Description 09/05/2024 Orders Only [facility] 230 [address] [facility] [address] [place] [address] Shaina Figueroa, [address] [facility] [place] [place] [address] Social History Tobacco Use Types [...] often do you attend chur ch or orthodoxy services? More than 4 times per year 02/08/2024 Do you belong to any clubs o r organizations such as yarsanism groups, unions, fraternal or athletic groups, or [...] Recorded Patient Health Questionnaire-2 Score 0 10/12/2023 [facility] of Occupat ional Health - [...] [address] [place] [address] [place] [address] Shaina Figueroa DO [address] [place] [address] [place] [address] documented as of this encounter Procedures Procedure [...] on filedocumented in this encounter Care Teams Hub Borer Relationship Specialty Start Date End Date Charan Delgadillo DO [address] [place] [address] PCP - General 05/20/23 Moni Becker MD [address] [place] [address] [place] [address] PCP - C 07/31/24 11/29/24 documented as of this encounter
--- OUTSIDE RECORDS SUMMARY | 2025-09-13 09:17 | XMS_ITS | Encounter Summary ---
Author Organization [facility] Address [address] [place] [address] Phone Care Team Providers Care Laundry Helper Name Role Phone Charan Delgadillo DO Primary Care Provider [phone] Charan Delgadillo DO Primary Care Provider [phone] Rosalinda Cordova MD Unavailable [phone] Encounter Details Date Type Department Care Team (Late st Contact Info) Description 02/19/2022 Orders Only [facility] [address] [place] [address] Conversion, Onbase Social History Tobacco Use Types [...] Office Visit [facility] 703 [facility] 250 [place] [address] Rosalinda Cordova MD 703 [facility] 2, [address] [address] Scheduled Orders Name Type Priority Associated Diagnoses Orde r Schedule OUTSIDE LAB SCAN Lab Ordered: 02/19/2022 documented as of this encounter Visit Diagnoses Not on filedocumented in this encounter Care Teams Laundry Helper Relationship Specialty Start Date End Date Charan Delgadillo DO PCP - General 07/09/20 02/21/24 Charan Delgadillo DO PCP - General Family Medicine 02/22/24 Rosalinda Cordova MD 703 [facility] 2, [address] [address] Consulting Physician Cardiology 02/22/24 documented as of this encounter
--- OUTSIDE RECORDS SUMMARY | 2025-09-13 09:17 | XMS_ITS | Encounter Summary ---
Author Organization [facility] Address [address] [place] [id number] Phone Care Team Providers Care Veterinary Receptionist Name Role Phone Charan Delgadillo DO Primary Care Provider [phone] Charan Delgadillo DO Primary Care Provider [phone] Rosalinda Cordova MD Unavailable [phone] Encounter Details Date Type Department Care Team (Late st Contact Info) Description 03/25/2022 Orders Only [facility] LE[facility] [address] [place] [address] Conversion, Onbase Social History Tobacco Use Types [...] 2:30 PM EST Office Visit [facility] [address] [address] Rosalinda Cordova MD 703 [facility] 2, [address] [place] [address] Scheduled Orders Name Type Priority Associated Diagnoses Orde r Schedule OUTSIDE LAB SCAN Lab Ordered: 03/25/2022 OUTSIDE LAB SCAN Lab Ordered: 03/25/2022 OUTSIDE LAB SCAN Lab Ordered: 03/25/2022 documented as of this encounter Visit Diagnoses Not on filedocumented in this encounter Care Teams Veterinary Receptionist Relationship Specialty Start Date End Date Charan Delgadillo DO PCP - General 07/09/20 02/21/24 Charan Delgadillo DO PCP - General Family Medicine 02/22/24 Rosalinda Cordova MD 3 [facility] 2, [address] [address] Consulting Physician Cardiology 02/22/24 documented as of this encounter
--- OUTSIDE RECORDS SUMMARY | 2025-09-13 09:17 | XMS_ITS | Encounter Summary ---
Author Organization [facility] Address [address] [place] [id number] Phone Care Team Providers Care Senior Project Architect Name Role Phone Charan Delgadillo DO Primary Care Provider [phone] Charan Delgadillo DO Primary Care Provider [phone] Rosalinda Cordova MD Unavailable [phone] Encounter Details Date Type Department Care Team (Late st Contact Info) Description 10/22/2021 Orders Only [facility] [address] [place] [address] Conversion, Onbase Social History Tobacco Use Types [...] EST Office Visit [facility] 703 [facility] 250 [place] [address] Rosalinda Cordova MD 703 [facility] 2, [address] [place] [address] Scheduled Orders Name Type Priority Associated Diagnoses Orde r Schedule SLEEP STUDY ORDER - ONBASE SCAN Sleep Center Ordered: 021 documented as of this encounter Visit Diagnoses Not on filedocumented in this encounter Care Teams Senior Project Architect Relationship Specialty Start Date End Date Charan Delgadillo DO PCP - General 07/09/20 02/21/24 Charan Delgadillo DO PCP - General Family Medicine 02/22/24 Rosalinda Cordova MD 703 [facility], [place] [address] Consulting Physician Cardiology 02/22/24 documented as of this encounter
--- OUTSIDE RECORDS SUMMARY | 2025-09-13 09:25 | XMS_ITS | CCD ---
Author Organization [facility] Care Team Providers Care Cis Coordinator Name Role Phone Charan Casey Unavailable Unavailable [...] Provider DO Charan Casey Primary Care Provider [phone] Eliud Rod Unavailable DO Charan Casey Primary Care Provider TIMOTEO Watts Attending Provider DO Charan Casey Primary Care Provider TIMOTEO Watts Attending Provider [phone] MD Federico Sepulveda Attending Provider MD Elpidio Whipple Attending Provider [phone] [employer] Unavailable DR YEISON [...] Scott Consulting Unavailable [facility] Consult[employer] Unavailable [facility] [place] Primary Care Unavailable HIGHLANDER, ACOSTA [...] Unavailable Kuns, DO Charan Primary Care Provider [phone] Kuns, DO Charan Attending Provider [phone] Kuns, DO Charan Primary Care Provider MD [...] Attending Provider Kuns, DO Charan Attending Provider [phone] Kuns, DO Charan Primary Care Provider [phone] Kuns, DO Charan Primary Care Provider [phone] Kuns Charan BASSETT Primary Care Provider Rosalinda Torres MD Unavailable [phone] ROSALINDA TORRES Attending Unavailable CHARAN CASEY MINOR Primary Care Unavailable Kuns, DO Charan Primary Care Provider [phone] Kuns, DO Charan Attending Provider [phone] MD Blas Ortiz Attending Provider [phone] Kuns, DO Charan Primary Care Provider Kuns, DO Charan Attending Provider Kuns, DO Charan Primary Care Provider Kuns, DO Charan Primary Care Provider [phone] MD Blas Ortiz Attending Provider Kuns, DO Charan Primary Care Provider [phone] ROSS Castro Attending Provider [phone] Self, Referral Attending Provider Unavailable MD Blas Ortiz Attending Provider [phone] Kuns DO, Charan Primary Care Provider [phone] Acosta Castro DPM Attending Provider Self, Referral Attending Provider Unavailable Blas Ortiz MD Attending Provider Charan Casey MD Primary Care Provider [phone] Moni Becker MD Unavailable Kunbryn BASSETT, Charan P Primary Care Provider Kuns DO, Charan Primary Care Provider Nader Curry DO Attending Provider KunCharan clemente DO Attending Provider Kuns DO, Charan Primary Care Provider Blas Ortiz MD Attending Provider [phone] Kuns Charan BASSETT Primary Care Provider Nader Curry DO Attending Provider Nader Curry DO Attending Provider [phone] Jacinto BASSETT, Charan Primary Care Provider Charan Casey DO Attending Provider [phone] Nader Curry DO Attending Provider Jacinto DO, Charan Primary Care Provider Jacinto DOCharan P Primary Care Provider Kuns DO, Charan Primary Care Provider [phone] Brysons DO, Charan Attending Provider Blas Ortiz MD Attending Provider [phone] Jacinto DO, Charan Primary Care Provider [phone] Acosta Castro DPM Attending Provider Blas Ortiz [...] Care Unavailable Gustavo Cuevas DO Attending Provider [phone] Karla Lyons MD Attending Provider [phone] Charan Casey DO Attending Provider SHAINA MUNROE Attending Unavailable SHAINA MUNROE Attending Unavailable SHAINA MUNROE Attending Unavailable CHARAN CASEY Referring Unavailable SHAINA MUNROE Attending Unavailable Allergies Allergy Classification Reported Allergen(s) Allergy Type Date of Onset Reaction(s) Facility Lincosamides (antibiotic) (1 source) Clindamycin Drug Allergy 05-23-20 oral [facility] Quinolones (antibiotic) (1 source) levoFLOXacin Drug Allergy 05-23-20 24 hypoglycemia [facility] (20 sources) Erythromycin; Translations: [Erythromycin Base TABS] Drug Allergy 12-04-19 24 nausea, Nausea/vomiting , Unknown [facility] (20 sources) Clindamycin Drug Allergy 12-31-19 24 oral med - rash [facility] (20 sources) arzithomycin Propensity to adverse reactions 12-31-19 24 stomach upset [facility] (20 sources) erythromycin base; Translations: [Erythromycin Base] Propensity to adverse reactions 03-25-20 22 Nausea Only [facility] (2 sources) levoFLOXacin Drug Allergy [facility] Other (20 sources) levoFLOXacin; Translations: [LEVOFLOXACIN] Drug Allergy 12-31-19 24 Nausea/vomiting , GI intolerance [facility] Medications Current Medications Medication Drug Class(es) Dates [...] Take by mouth Active Continuous Blood Gluc Veterinary Science Teacher (Dexcom G7 Veterinary Science Teacher) device (8 sources) Start: 07-16-2023 Continuous Blo od Gluc Veterinary Science Teacher (Dexcom G7 Veterinary Science Teacher) device USE DIRECTED 07/16/2023 Active Continuous Blood Gluc Sensor (Dexcom G7 Sensor) misc (8 sources) Start: 08-18-2023 Continuous Blo od Gluc Sensor (Dexcom G7 Sensor) misc USE DIRECTED, CHANGE EVERY 10 DAYS 08/18/2023 Active CoQ-10 (15 sources) CoQ-10 Active CoQ-10 100 MG (6 sources) CoQ-10 100 MG as directed Orally ONCE A DAY Active Dexcom G6 Veterinary Science Teacher - (20 sources) Start: 03-19-2021 Dexcom G6 [...] months Feb, Active Start: 03-19-2021 Dexcom G7 Veterinary Science Teacher - (20 sources) Start: 07-02-2023 Dexcom G7 [...] once daily ergocalciferol (Vitamin D-2) 1.25 MG (78450 UT) capsule Take 1 capsule (50,000 Units) by mouth once daily. 08/29/2021 Active Start: 08-29-2021 take 1 tablet by nicola th two times weekly Vitamin D (Ergocalciferol) 1.25 MG (14204 UT) Oral Capsule Take 1 tablet twice weekly Quantity: 0 Refills: 0 Ordered: 14-Jan-2022 DO Start : 29-Aug-2021 Active Start: 06-15-2020 End: 03-01-2024 take 1 capsule by mouth every week Ergocalciferol (Vitamin D2) 1,250 mcg (50,000 unit) Capsule Discontinued 1250 MCG PO every week June 15, 2020 12:00am March 01, 2024 9:34am thursday take 1 capsule by mo ut every week Ergocalciferol 51623 UNIT 1 capsule Orally Q week Active take 1 capsule by mo uth every week Ergocalciferol 58161 UNIT 1 capsule Orally Q week Active [...] 24, 2022 11:00pm omega-3 acid ethyl esters (alf) 1000 mg oral capsule (20 sources) Start: 03-04-2023 take 1 capsule by mouth in the morning omega-3 acid ethyl esters (Lovaza) 1 g capsule Take 2 g by mouth in the morning and 2 g before bedtime. 03/04/2023 Active Start: 06-15-2019 End: 04-11-2025 Lagrange-3 Acid Ethyl Esters (L ovaza) 1 gram capsule Discontinued 2 CAP PO Twice daily 360 90 September 23, 2024 11:59am April 11, 2025 4:11pm Start: 12-25-2017 End: 01-03-2018 Lagrange-3 Acid Ethyl Esters (L ovaza) 1 gram [...] 2024 1:53pm As directed polyethylene glycol 3350 307657 mg / potassium chloride 2970 mg / sodium bicarbonate 6740 mg / sodium chloride 5860 mg / sodium sulfate 95588 mg powder for oral solution (2 sources) [...] 05-08-2022 take 1 capsule by mo [facility] twice daily Co-Enzyme Q10 100 MG Oral [...] twice daily as needed for pain Hydrocodone-Acetaminophen ([place]) 5-325 mg tablet Discontinued 1 TAB PO Twice daily as needed for Pain June 19, 2020 12:00am July 27, 2020 8:14am Start: 01-17-2018 End: 06-15-2019 take 1-2 tablets by mouth every six hours as needed for pain Hydrocodone-Acetaminophen ([place]) 5-325 mg tablet Discontinued 2 TAB PO [...] 10:59am Start: 10-21-2023 take 1 capsule by [facility] every eight hours Benzonatate 200 MG 1 capsule Orally Three times a day Nov, Active Oemxyvvhaa-Fhiegvla-Zaxvmyrx ol (5 sources) Corticosteroid, beta2-Adrenergic Agonist Start: 12-09-2024 End: 01-09-2025 Zxjuixfian-Hlgmiqns-Hjhzyito ol (Breztri Aerosphere) 160-9-4.8 mcg/actuation HFA aerosol inhaler Discontinued 2 INH INHALATION Twice daily 5.December 09, 2024 1:00am January 09, 2025 10:59am SAMPLE PROVIDED Rjvpqzcumg-Lyrtodxd-Gzcsatli ol (Breztri Aerosphere) 160-9-4.8 mcg/actuation HFA aerosol inhaler (11 sources) Start: 12-09-2024 End: 01-09-2025 Pphnwsrehx-Lrkjyhsf-Ipenjwgo ol (Breztri Aerosphere) 160-9-4.8 mcg/actuation HFA aerosol inhaler Discontinued 2 INH INHALATION Twice daily 5.9 December 09, 2024 1:00am January 09, 2025 10:59am SAMPLE PROVIDED Start: 12-09-2024 End: 01-09-2025 Thcvdrhwrl-Nhtiaknu-Qddlxqvs ol (Breztri Aerosphere) 160-9-4.8 mcg/actuation HFA aerosol [...] 03-11-2019 take 2 tablets by mo [facility] every twenty-four hours Olmesartan Medoxomil 40 [...] [Coronary atherosclerosis of unspecified type of vessel, [place] or graft] Onset: 2 Resolved: 2 Chronic [...] sources) Long-term current use of insulin; Translations: [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 of insulin] Onset: 3 01-13-2024 Episodic Other aftercare (20 sources) Drug therapy finding; Translations: [Other snf (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 therapy] 02-17-2018 Episodic Other aftercare (5 sources) Taking high risk medication; Translations: [Other snf (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 therapy] 12-30-2017 Episodic Other connective [...] (BMI) of 39.0 to 39.9 in adult ([facility])] Onset: 3 10-18-2024 Chronic Other nutritional; endocrine; [...] 01-13-2024 Episodic Other aftercare (1 source) Other snf (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 therapy; Translations: [OTH HALF-WAY CURRENT DRUG THERAPY] Onset: 01-06-2023 Episodic Other aftercare (1 source) 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 of insulin; Translations: [HALF-WAY CURRENT USE OF INSULIN] Onset: 01-06-2023 Episodic Other aftercare (1 source) 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 of aspirin; 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: [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] Onset: 01-06-2023 Episodic Other aftercare (1 source) detention (current) use of anticoagulants; Translations: [HALF-WAY CURRNT USE ANTICOAGULANTS] Onset: 12-25-2022 Episodic Other [...] Basophils (Bld) [#/Vol] 0.0 10 3/uL 0.0-0.1 [facility] Basophils/100 WBC Auto (Bld) Ordered By: Karla Lyons on 06-30-2025 Basophils/100 WBC (Bld) 0.1 % Low 0.2-2.0 [facility] Eosinophils/100 WBC Auto (Bl d)Ordered By: Karla Lyons on 06-30-2025 Eosinophils/100 WBC (Bld) 0.0 % Low 0.9-7.0 [facility] Erythrocyte distribution wid th Auto (RBC) [Ratio]Ordered By: Karla Lyons on 06-30-2025 Erythrocyte distribution width (RBC) [Ratio] 12.2 % 11.0-15.0 [facility] Globulin Calc (S) [Mass/Vol] Ordered By: Karla Lyons on 06-30-2025 Globulin (S) [Mass/Vol] 4.1 g/dL [facility] Glomerular filtration rate ( GFR) estimation in non- AmericanOrdered By: Karla Lyons on 06-30-2025 GFR/1.73 sq M.predicted among non-blacks MDRD (S/P/Bld) [Vol rate/Area] 34 mL/min/{1.73_m2} Low >=60 mL/min/1.73 m 2 [facility] Hematocrit Auto (Bld) [Volum e fraction]Ordered By: Karla Lyons on 06-30-2025 Hematocrit (Bld) [Volume fraction] 30.3 % Low 36.0-48.0 [facility] Hemoglobin [Mass/volume] in BloodOrdered By: Karla Lyons on 06-30-2025 Hemoglobin (Bld) [Mass/Vol] 10.1 g/dL Low 12.0-16.0 [facility] Laboratory - Chemistry and C hemistry - challengeOrdered By: Karla Lyons on 06-30-2025 Albumin [Mass/Vol] 1.9 g/dL Low 3.4-5.0 [facility] ALP [Catalytic activity/Vol] 99 U/L 46-116 [facility] ALT [Catalytic activity/Vol] 23 U/L 14-59 [facility] AST [Catalytic activity/Vol] 14 U/L Low 15-37 [facility] Bilirubin [Mass/Vol] 0.3 mg/dL 0.2-1.0 [facility] Calcium [Mass/Vol] 8.6 mg/dL 8.5-10.1 [facility] Chloride [Moles/Vol] 106 mmol/L 98-107 [facility] CO2 [Moles/Vol] 23.0 mmol/L 21.0-32.0 [facility] Creatinine [Mass/Vol] 1.54 mg/dL High 0.55-1.02 [facility] GFR/1.73 sq M.predicted MDRD (S/P/Bld) [Vol rate/Area] 41 mL/min/{1.73_m2} Low >=60 mL/min/1.73 m 2 [facility] Glucose [Mass/Vol] 253 mg/dL High 74-106 [facility] Magnesium [Mass/Vol] 1.7 mg/dL Low 1.8-2.4 [facility] Potassium [Moles/Vol] 5.0 mmol/L 3.5-5.1 [facility] Protein [Mass/Vol] 6.0 g/dL Low 6.4-8.2 [facility] Sodium [Moles/Vol] 138 mmol/L 136-145 [facility] Urea nitrogen [Mass/Vol] 56.0 mg/dL High 7.0-18.0 [facility] Urea nitrogen/Creatinine [Mass ratio] 36.4 mg/mg [facility] Laboratory - Hematology and Cell countsOrdered By: Karla Lyons on 06-30-2025 ESR (Bld) [Velocity] 106 mm/h High <=30 [facility] Immature granulocytes/100 WBC (Bld) 0.8 % High 0.0-0.5 [facility] Leukocytes [#/volume] correc praneeth for nucleated erythrocytes in Blood by Automated counOrdered By: Karla Lyons on 06-30-2025 WBC corrected for nucl RBC Auto (Bld) [#/Vol] 11.8 10 3/uL High 4.0-11.0 [facility] Lymphocytes Auto (Bld) [#/Vo l]Ordered By: Karla Lyons on 06-30-2025 Lymphocytes (Bld) [#/Vol] 0.8 10 3/uL Low 1.2-3.8 [facility] Lymphocytes/100 WBC Auto (Bl d)Ordered By: Karla Lyons on 06-30-2025 Lymphocytes/100 WBC (Bld) 7.0 % Low 20.5-60.0 [facility] MCH Auto (RBC) [Entitic mass ]Ordered By: Karla Lyons on 06-30-2025 MCH (RBC) [Entitic mass] 29.3 pg 26.7-34.0 [facility] MCHC Auto (RBC) [Mass/Vol]Or dered By: Karla Lyons on 06-30-2025 MCHC (RBC) [Mass/Vol] 33.3 g/dL 29.9-35.2 [facility] MCV Auto (RBC) [Entitic vol] Ordered By: Karla Lyons on 06-30-2025 MCV (RBC) [Entitic vol] 87.8 fL 81.0-99.0 [facility] Monocytes Auto (Bld) [#/Vol] Ordered By: Karla Lyons on 06-30-2025 Monocytes (Bld) [#/Vol] 0.5 10 3/uL 0.3-0.8 [facility] Monocytes/100 WBC Auto (Bld) Ordered By: Karla Lyons on 06-30-2025 Monocytes/100 WBC (Bld) 3.9 % 1.7-12.0 [facility] Neutrophils Auto (Bld) [#/Vo l]Ordered By: Karla Lyons on 06-30-2025 Neutrophils (Bld) [#/Vol] 10.4 10 3/uL High 1.4-6.5 [facility] Neutrophils/100 WBC Auto (Bl d)Ordered By: Karla Lyons on 06-30-2025 Neutrophils/100 WBC (Bld) 88.2 % High 43.0-75.0 [facility] No Panel InformationOrdered By: Gustavo Cuevas on 06-30-2025 Anaerobe Identification Only [facility] No Panel InformationOrdered By: Karla Lyons on 06-30-2025 C-Reactive Protein, Quantitative 17.95 mg/dL High <=0.50 [facility] Eosinophils # (Auto) 0.0 10 3/uL 0.0-0.7 [facility] Immature Granulocyte # (Auto) 0.09 10 3/uL High 0.00-0.03 [facility] Platelet mean volume Auto (B ld) [Entitic vol]Ordered By: Karla Lyons on 06-30-2025 Platelet mean volume (Bld) [Entitic vol] 11.5 fL 9.5-13.5 [facility] Platelets Auto (Bld) [#/Vol] Ordered By: Karla Lyons on 06-30-2025 Platelets (Bld) [#/Vol] 184 10 3/uL 150-450 [facility] RBC Auto (Bld) [#/Vol]Ordere d By: Karla Lyons on 06-30-2025 RBC (Bld) [#/Vol] 3.45 10 6/uL Low 4.20-5.40 [facility] Serum or plasma albumin/glob ulin mass ratioOrdered By: Karla Lyons on 06-30-2025 Albumin/Globulin [Mass ratio] 0.5 {ratio} [facility] Serum or plasma anion gap de terminationOrdered By: Karla Lyons on 06-30-2025 Anion gap [Moles/Vol] 14.0 mmol/L [facility] Basophils Auto (Bld) [#/Vol] Ordered By: Karla Lyons on 06-29-2025 Basophils (Bld) [#/Vol] 0.0 10 3/uL 0.0-0.1 [facility] Basophils/100 WBC Auto (Bld) Ordered By: Karla Lyons on 06-29-2025 Basophils/100 WBC (Bld) 0.1 % Low 0.2-2.0 [facility] Eosinophils/100 WBC Auto (Bl d)Ordered By: Karla Lyons on 06-29-2025 Eosinophils/100 WBC (Bld) 0.1 % Low 0.9-7.0 [facility] Erythrocyte distribution wid th Auto (RBC) [Ratio]Ordered By: Karla Lyons on 06-29-2025 Erythrocyte distribution width (RBC) [Ratio] 12.3 % 11.0-15.0 [facility] Globulin Calc (S) [Mass/Vol] Ordered By: Karla Lyons on 06-29-2025 Globulin (S) [Mass/Vol] 4.3 g/dL [facility] Glomerular filtration rate ( GFR) estimation in non- AmericanOrdered By: Karla Lyons on 06-29-2025 GFR/1.73 sq M.predicted among non-blacks MDRD (S/P/Bld) [Vol rate/Area] 31 mL/min/{1.73_m2} Low >=60 mL/min/1.73 m 2 [facility] Hematocrit Auto (Bld) [Volum e fraction]Ordered By: Karla Lyons on 06-29-2025 Hematocrit (Bld) [Volume fraction] 31.1 % Low 36.0-48.0 [facility] Hemoglobin [Mass/volume] in BloodOrdered By: Karla Lyons on 06-29-2025 Hemoglobin (Bld) [Mass/Vol] 10.6 g/dL Low 12.0-16.0 [facility] Laboratory - Chemistry and C hemistry - challengeOrdered By: Karla Lyons on 06-29-2025 Albumin [Mass/Vol] 2.1 g/dL Low 3.4-5.0 [facility] ALP [Catalytic activity/Vol] 88 U/L 46-116 [facility] ALT [Catalytic activity/Vol] 17 U/L 14-59 [facility] AST [Catalytic activity/Vol] 14 U/L Low 15-37 [facility] Bilirubin [Mass/Vol] 0.5 mg/dL 0.2-1.0 [facility] Calcium [Mass/Vol] 8.9 mg/dL 8.5-10.1 [facility] Chloride [Moles/Vol] 104 mmol/L 98-107 [facility] CO2 [Moles/Vol] 21.2 mmol/L 21.0-32.0 [facility] Creatinine [Mass/Vol] 1.68 mg/dL High 0.55-1.02 [facility] GFR/1.73 sq M.predicted MDRD (S/P/Bld) [Vol rate/Area] 37 mL/min/{1.73_m2} Low >=60 mL/min/1.73 m 2 [facility] Glucose [Mass/Vol] 201 mg/dL High 74-106 [facility] Potassium [Moles/Vol] 5.1 mmol/L 3.5-5.1 [facility] Protein [Mass/Vol] 6.4 g/dL 6.4-8.2 [facility] Sodium [Moles/Vol] 137 mmol/L 136-145 [facility] Urea nitrogen [Mass/Vol] 62.0 mg/dL High 7.0-18.0 [facility] Urea nitrogen/Creatinine [Mass ratio] 36.9 mg/mg [facility] Laboratory - Chemistry and C hemistry - challengeOrdered By: Elpdiio Whipple on 06-29-2025 Magnesium [Mass/Vol] 1.9 mg/dL 1.8-2.4 [facility] Laboratory - Hematology and Cell countsOrdered By: Karla Lyons on 06-29-2025 Immature granulocytes/100 WBC (Bld) 0.3 % 0.0-0.5 [facility] Leukocytes [#/volume] correc praneeth for nucleated erythrocytes in Blood by Automated counOrdered By: Karla Lyons on 06-29-2025 WBC corrected for nucl RBC Auto (Bld) [#/Vol] 14.5 10 3/uL High 4.0-11.0 [facility] Lymphocytes Auto (Bld) [#/Vo l]Ordered By: Karla Lyons on 06-29-2025 Lymphocytes (Bld) [#/Vol] 0.7 10 3/uL Low 1.2-3.8 [facility] Lymphocytes/100 WBC Auto (Bl d)Ordered By: Karla Lyons on 06-29-2025 Lymphocytes/100 WBC (Bld) 4.9 % Low 20.5-60.0 [facility] MCH Auto (RBC) [Entitic mass ]Ordered By: Karla Lyons on 06-29-2025 MCH (RBC) [Entitic mass] 30.1 pg 26.7-34.0 [facility] MCHC Auto (RBC) [Mass/Vol]Or dered By: Karla Lyons on 06-29-2025 MCHC (RBC) [Mass/Vol] 34.1 g/dL 29.9-35.2 [facility] MCV Auto (RBC) [Entitic vol] Ordered By: Karla Lyons on 06-29-2025 MCV (RBC) [Entitic vol] 88.4 fL 81.0-99.0 [facility] Monocytes Auto (Bld) [#/Vol] Ordered By: Karla Lyons on 06-29-2025 Monocytes (Bld) [#/Vol] 0.7 10 3/uL 0.3-0.8 [facility] Monocytes/100 WBC Auto (Bld) Ordered By: Karla Lyons on 06-29-2025 Monocytes/100 WBC (Bld) 4.8 % 1.7-12.0 [facility] Neutrophils Auto (Bld) [#/Vo l]Ordered By: Karla Lyons on 06-29-2025 Neutrophils (Bld) [#/Vol] 13.0 10 3/uL High 1.4-6.5 [facility] Neutrophils/100 WBC Auto (Bl d)Ordered By: Karla Lyons on 06-29-2025 Neutrophils/100 WBC (Bld) 89.8 % High 43.0-75.0 [facility] No Panel InformationOrdered By: Karla Lyons on 06-29-2025 Eosinophils # (Auto) 0.0 10 3/uL 0.0-0.7 [facility] Immature Granulocyte # (Auto) 0.05 10 3/uL High 0.00-0.03 [facility] Platelet mean volume Auto (B ld) [Entitic vol]Ordered By: Karla Lyons on 06-29-2025 Platelet mean volume (Bld) [Entitic vol] 11.4 fL 9.5-13.5 [facility] Platelets Auto (Bld) [#/Vol] Ordered By: Karla Lyons on 06-29-2025 Platelets (Bld) [#/Vol] 178 10 3/uL 150-450 [facility] RBC Auto (Bld) [#/Vol]Ordere d By: Karla Lyons on 06-29-2025 RBC (Bld) [#/Vol] 3.52 10 6/uL Low 4.20-5.40 [facility] Serum or plasma albumin/glob ulin mass ratioOrdered By: Karla Lyons on 06-29-2025 Albumin/Globulin [Mass ratio] 0.5 {ratio} [facility] Serum or plasma anion gap de terminationOrdered By: Karla Lyons on 06-29-2025 Anion gap [Moles/Vol] 16.9 mmol/L [facility] Basophils Auto (Bld) [#/Vol] Ordered By: Charan Casey on 06-28-2025 Basophils (Bld) [#/Vol] 0.0 10 3/uL 0.0-0.1 [facility] Basophils/100 WBC Auto (Bld) Ordered By: Charan Casey on 06-28-2025 Basophils/100 WBC (Bld) 0.1 % Low 0.2-2.0 [facility] Eosinophils/100 WBC Auto (Bl d)Ordered By: Charan Casey on 06-28-2025 Eosinophils/100 WBC (Bld) 0.1 % Low 0.9-7.0 [facility] Erythrocyte distribution wid th Auto (RBC) [Ratio]Ordered By: Charan Casey on 06-28-2025 Erythrocyte distribution width (RBC) [Ratio] 12.1 % 11.0-15.0 [facility] Globulin Calc (S) [Mass/Vol] Ordered By: Gustavo Cuevas on 06-28-2025 Globulin (S) [Mass/Vol] 4.6 g/dL [facility] Glomerular filtration rate ( GFR) estimation in non- AmericanOrdered By: Gustavo Cuevas on 06-28-2025 GFR/1.73 sq M.predicted among non-blacks MDRD (S/P/Bld) [Vol rate/Area] 19 mL/min/{1.73_m2} Low >=60 mL/min/1.73 m 2 [facility] Hematocrit Auto (Bld) [Volum e fraction]Ordered By: Charan Casey on 06-28-2025 Hematocrit (Bld) [Volume fraction] 33.7 % Low 36.0-48.0 [facility] Hemoglobin [Mass/volume] in BloodOrdered By: Charan Casey on 06-28-2025 Hemoglobin (Bld) [Mass/Vol] 11.7 g/dL Low 12.0-16.0 [facility] INR in Platelet poor plasma by Coagulation assayOrdered By: Gustavo Cuevas on 06-28-2025 INR Coag (PPP) [Relative time] 1.02 {INR} [facility] Comment on above: DESIRED INR:2.0-3.0 CONDITIONS NOT LISTED BELOW2.5-3.5 FOR PROSTHETIC HEART VALVE REPLACEMENT2.5-3.5 RECURRENT THROMBOSIS Laboratory - Chemistry and C hemistry - challengeOrdered By: Gustavo Cuevas on 06-28-2025 Albumin [Mass/Vol] 2.7 g/dL Low 3.4-5.0 [facility] ALP [Catalytic activity/Vol] 90 U/L 46-116 [facility] ALT [Catalytic activity/Vol] 23 U/L 14-59 [facility] AST [Catalytic activity/Vol] 25 U/L 15-37 [facility] Bilirubin [Mass/Vol] 0.6 mg/dL 0.2-1.0 [facility] Calcium [Mass/Vol] 9.3 mg/dL 8.5-10.1 [facility] Chloride [Moles/Vol] 99 mmol/L 98-107 [facility] CO2 [Moles/Vol] 22.3 mmol/L 21.0-32.0 [facility] Creatinine [Mass/Vol] 2.58 mg/dL High 0.55-1.02 [facility] GFR/1.73 sq M.predicted MDRD (S/P/Bld) [Vol rate/Area] 23 mL/min/{1.73_m2} Low >=60 mL/min/1.73 m 2 [facility] Glucose [Mass/Vol] 81 mg/dL 74-106 [facility] Lactate [Moles/Vol] 1.3 mmol/L 0.4-2.0 [facility] Potassium [Moles/Vol] 4.9 mmol/L 3.5-5.1 [facility] Protein [Mass/Vol] 7.3 g/dL 6.4-8.2 [facility] Sodium [Moles/Vol] 136 mmol/L 136-145 [facility] Urea nitrogen [Mass/Vol] 72.0 mg/dL High 7.0-18.0 [facility] Urea nitrogen/Creatinine [Mass ratio] 27.9 mg/mg [facility] Laboratory - Hematology and Cell countsOrdered By: Charan Casey on 06-28-2025 ESR (Bld) [Velocity] 104 mm/h High <=30 [facility] Immature granulocytes/100 WBC (Bld) 0.5 % 0.0-0.5 [facility] Leukocytes [#/volume] correc praneeth for nucleated erythrocytes in Blood by Automated counOrdered By: Charan Csaey on 06-28-2025 WBC corrected for nucl RBC Auto (Bld) [#/Vol] 17.3 10 3/uL High 4.0-11.0 [facility] Lymphocytes Auto (Bld) [#/Vo l]Ordered By: Charan Casey on 06-28-2025 Lymphocytes (Bld) [#/Vol] 0.7 10 3/uL Low 1.2-3.8 [facility] Lymphocytes/100 WBC Auto (Bl d)Ordered By: Charan Casey on 06-28-2025 Lymphocytes/100 WBC (Bld) 4.0 % Low 20.5-60.0 [facility] MCH Auto (RBC) [Entitic mass ]Ordered By: Charan Casey on 06-28-2025 MCH (RBC) [Entitic mass] 30.4 pg 26.7-34.0 [facility] MCHC Auto (RBC) [Mass/Vol]Or dered By: Charan Casey on 06-28-2025 MCHC (RBC) [Mass/Vol] 34.7 g/dL 29.9-35.2 [facility] MCV Auto (RBC) [Entitic vol] Ordered By: Charan Casey on 06-28-2025 MCV (RBC) [Entitic vol] 87.5 fL 81.0-99.0 [facility] Monocytes Auto (Bld) [#/Vol] Ordered By: Charan Casey on 06-28-2025 Monocytes (Bld) [#/Vol] 0.7 10 3/uL 0.3-0.8 [facility] Monocytes/100 WBC Auto (Bld) Ordered By: Charan Casey on 06-28-2025 Monocytes/100 WBC (Bld) 4.0 % 1.7-12.0 [facility] Neutrophils Auto (Bld) [#/Vo l]Ordered By: Charan Casey on 06-28-2025 Neutrophils (Bld) [#/Vol] 15.8 10 3/uL High 1.4-6.5 [facility] Neutrophils/100 WBC Auto (Bl d)Ordered By: Charan Casey on 06-28-2025 Neutrophils/100 WBC (Bld) 91.3 % High 43.0-75.0 [facility] No Panel InformationOrdered By: Charan Casey on 06-28-2025 C-Reactive Protein, Quantitative 29.00 mg/dL High <=0.50 [facility] Eosinophils # (Auto) 0.0 10 3/uL 0.0-0.7 [facility] Immature Granulocyte # (Auto) 0.09 10 3/uL High 0.00-0.03 [facility] No Panel InformationOrdered By: Gustavo Cuevas on 06-28-2025 Venous Blood Partial Pressure CO2 41.7 mm[Hg] 40.0-52.0 [facility] Venous Blood pH 7.354 7.330-7.430 [facility] Platelet mean volume Auto (B ld) [Entitic vol]Ordered By: Charan Casey on 06-28-2025 Platelet mean volume (Bld) [Entitic vol] 11.8 fL 9.5-13.5 [facility] Platelets Auto (Bld) [#/Vol] Ordered By: Charan Casey on 06-28-2025 Platelets (Bld) [#/Vol] 178 10 3/uL 150-450 [facility] Prothrombin time (PT)Ordered By: Gustavo Cuevas on 06-28-2025 PT Coag (PPP) [Time] 10.8 s 9.0-11.6 [facility] RBC Auto (Bld) [#/Vol]Ordere d By: Charan Casey on 06-28-2025 RBC (Bld) [#/Vol] 3.85 10 6/uL Low 4.20-5.40 [facility] Serum or plasma albumin/glob ulin mass ratioOrdered By: Gustavo Cuevas on 06-28-2025 Albumin/Globulin [Mass ratio] 0.6 {ratio} [facility] Serum or plasma anion gap de terminationOrdered By: Gustavo Cuevas on 06-28-2025 Anion gap [Moles/Vol] 19.6 mmol/L [facility] X-ray reportOrdered By: Brian Mays on 06-05-2025 Study report [facility] Main [address] [address] XRay Report Signed Patient: Rita Cobb MR#: [id number] : 1960 Acct:[id number] Age/Sex: 64 / F ADM Date: 5 [facility]: Type: REG CLI Attending Dr: [...] Mays M.D. 06/05/2025 5:41 PM Dictation Location: [place] [address] Transcribed By: [facility] 06/05/251740 Dictated By: Néstor Mays MD 06/05/251734 Signed By: 06/05/25 174 [facility] Work Phone: XR foot BI 3Von 06-05-2025 XR foot BI 3V [facility] [place] [address] XRay Report Signed Patient: Rita Cobb MR#: [id number] : 1960 Acct:[id number] Age/Sex: 64 / F ADM Date: 06/05/25 Loc: [facility] Room: Type: REG CLI Attending Dr: [...] Mays M.D. 06/05/2025 5:41 PM Dictation Location: [place] [address] Transcribed By: [facility] 06/05/25 174 Dictated By: Néstor Mays MD 06/05/25 173 Signed By: 06/05/25 174 Normal [facility] HbA1c (Bld) [Mass fraction]o n 05-15-2025 Interpretation and review of laboratory results Abnormal On license of [facility] 05-15-2025 HbA1c (Bld) [Mass fraction] 8.1 % [facility] RT wo con [facility] [place] [address] MRI Report Signed Patient: Rita Cobb MR#: [id number] : 1960 Acct:[id number] Age/Sex: 64 / F ADM Date: 01/23/25 Loc: [facility] Room: Type: [facility] Attending Dr: Nader Curry DO Copies to: [...] Timothy Levi M.D.01/26/2025 9:38 AM Dictation Location: [facility] Transcribed By: FRANKY 01/26/25937 Dictated By: Timothy Levi II, MD 01/26/25901 Signed By: 01/26/25937 Normal [facility] Influenza virus B Ag [Presen ce] in Upper respiratory specimen by Rapid immunoassayon 12-09-2024 FLUBV Ag IA.rapid Ql (Nph) Influenza virus B Ag [Presence] in Upper respiratory specimen by Rapid immunoassay [facility] No Panel Informationon 12-09 Influenza Type A (Rapid) Negative [facility] POC SARS CoV-2 Antigen Negative [facility] No Panel InformationOrdered By: Charan Casey on 12-09-2024 RSV (POC) [facility] RSV (POC) [facility] X-ray reportOrdered By: Brian Mays on 12-08-2024 Study report [facility] [place] [address] XRay Report Signed Patient: Rita Cobb MR#: [id number] : 1960 Acct:[id number] Age/Sex: 64 / F ADM Date: 5 Loc: [facility] Room: Type: [facility] Attending Dr: Charan Casey DO Copies [...] MD 12/08/24 1524 Signed By: 12/08/24 1559 [facility] Work Phone: XR chest 2V*on 12-08-2024 XR chest 2V* [facility] [place] [address] [place] [address] XRay Report Signed Patient: Rita Cobb MR#: [id number] : 1960 Acct:[id number] Age/Sex: 64 / F ADM Date: 12/08/24 [...] 1524 Signed By: 12/08/24 1559 Normal [facility] XR shoulder RT min 2V*on XR shoulder RT min 2V* [facility] [address] [place] [address] XRay Report Signed Patient: Rita Cobb MR#: [id number] : 1960 Acct:[id number] Age/Sex: 63 / F ADM Date: 10/25/24 [...] Ibis Crisostomo M.D.10/25/2024 9:11 AM Dictation Location: [place] [address] Transcribed By: [facility] 10/25/24 0911 Dictated By: Ibis Crisostomo MD 10/25/24 0908 Signed By: 10/25/24 0911 Normal [facility] HbA1c (Bld) [Mass fraction]o n 10-17-2024 Interpretation and review of laboratory results Normal On license of [facility] 10-17-2024 HbA1c (Bld) [Mass fraction] 7.6 % [facility] MM screening mammo BI w/CADo n 09-07-2024 MM screening mammo BI w/CAD [facility] [place] [address] Mammography Report Signed Patient: Rtia Cobb MR#: [id number] : 1960 Acct:[id number] Age/Sex: 63 / F ADM Date: 09/07/24 Loc: [place] Room: Type: REG CLI Attending Dr: Referral [...] D.O.09/07/2024 9:04 AM Dictation Location: [facility] Transcribed By: [facility] 09/07/24903 Dictated By: Sudhir Brown Jr, DO 09/07/24899 Signed By: 09/07/24903 Normal [facility] Albumin [Mass/volume] in Ser um or Plasma by Bromocresol green (BCG) dye binding methoOrdered By: Elpidio Whipple on 02-29-2024 Albumin BCG dye [Mass/Vol] 4.3 g/dL 3.5-5.7 [facility] Automated erythrocytes count in urine sediment (number/area)Ordered By: Elpidio Whipple on 02-29-2024 RBC Auto (Urine sed) [#/Area] 1-2 [HPF] 0-4 [facility] Automated leukocytes count i n urine sediment (number/area)Ordered By: Elpidio Whipple on 02-29-2024 WBC Auto (Urine sed) [#/Area] 5-9 [HPF] 0-4 [facility] Bilirubin Test strip Ql (U)O rdered By: Elpidio Whipple on 02-29-2024 Bilirubin Ql (U) Negative Negative [facility] Calcium [Mass/volume] in Ser um or PlasmaOrdered By: Elpidio Whipple on 02-29-2024 Calcium [Mass/Vol] 9.8 mg/dL 8.6-10.3 [facility] Carbon dioxide, total [Moles /volume] in Serum or PlasmaOrdered By: Elpidio Whipple on 02-29-2024 CO2 [Moles/Vol] 30.4 mmol/L 21.0-31.0 [facility] Chloride [Moles/volume] in S john or PlasmaOrdered By: Elpidio Whipple on 02-29-2024 Chloride [Moles/Vol] 103 mmol/L 98-107 [facility] Color Auto (U)Ordered By: Ab rahul Whipple on 02-29-2024 Color (U) Dark yellow Yellow [facility] Creatinine [Mass/volume] in Serum or PlasmaOrdered By: Elpidio Whipple on 02-29-2024 Creatinine [Mass/Vol] 1.19 mg/dL 0.60-1.20 [facility] Creatinine [Mass/volume] in UrineOrdered By: Elpidio Whipple on 02-29-2024 Creatinine (U) [Mass/Vol] 101.0 mg/dL [facility] Comment on above: No reference range e stablished Erythrocyte distribution wid th Auto (RBC) [Ratio]Ordered By: Elpidio Whipple on 02-29-2024 Erythrocyte distribution width (RBC) [Ratio] 12.9 % 11.9-15.3 [facility] Glucose [Mass/volume] in Ser um or PlasmaOrdered By: Elpidio Whipple on 02-29-2024 Glucose [Mass/Vol] 164 mg/dL 70-100 [facility] Comment on above: ADA recommended refe rence rangeRandom Glucose Reference Range is dependent on time and content of last meal. Glucose of more than 200 mg/dL in a nonstressed, ambulatory subject supports the diagnosis of Diabetes Mellitus. Hematocrit Auto (Bld) [Volum e fraction]Ordered By: Elpidio Whipple on 02-29-2024 Hematocrit (Bld) [Volume fraction] 39.7 % 34.0-46.4 [facility] Hemoglobin [Mass/volume] in BloodOrdered By: Elpidio Whipple on 02-29-2024 Hemoglobin (Bld) [Mass/Vol] 13.4 g/dL 11.8-15.4 [facility] Ketones Auto test strip (U) [Mass/Vol]Ordered By: Elpidio Whipple on 02-29-2024 Ketones (U) [Mass/Vol] Negative [facility] - UrinalysisOrder ed By: Elpidio Whipple on 02-29-2024 Hyaline casts LM Ql (Urine sed) 0-8 [LPF] 0-8 [facility] Leukocytes [#/volume] correc praneeth for nucleated erythrocytes in Blood by Automated counOrdered By: Elpidio Whipple on 02-29-2024 WBC corrected for nucl RBC Auto (Bld) [#/Vol] 4.5 10*3/uL 3.8-11.6 [facility] MCH Auto (RBC) [Entitic mass ]Ordered By: Elpidio Whipple on 02-29-2024 MCH (RBC) [Entitic mass] 29.1 pg 24.7-34.3 [facility] MCHC Auto (RBC) [Mass/Vol]Or dered By: Elpidio Whipple on 02-29-2024 MCHC (RBC) [Mass/Vol] 33.8 g/dL 32.0-35.0 [facility] MCV Auto (RBC) [Entitic vol] Ordered By: Elpidio Whipple on 02-29-2024 MCV (RBC) [Entitic vol] 86.2 fL 80-100 [facility] Magnesium [Mass/volume] in S john or PlasmaOrdered By: Elpidio Whipple on 02-29-2024 Magnesium [Mass/Vol] 1.6 mg/dL 1.9-2.7 [facility] Nitrite Test strip Ql (U)Ord ered By: Elpidio Whipple on 02-29-2024 Nitrite Ql (U) Negative Negative [facility] No Panel InformationOrdered By: Elpidio Whipple on 02-29-2024 Estimated GFR (CKD-EPI) 51.377 mL/Min [facility] Creatinine Clearance (Chem N/A [facility] Parathyrin.intact [Mass/volu me] in Serum or PlasmaOrdered By: Elpidio Whipple on 02-29-2024 Parathyrin.intact [Mass/Vol] 53.1 pg/mL 12-88 [facility] Phosphate [Mass/volume] in S john or PlasmaOrdered By: Elpidio Whipple on 02-29-2024 Phosphate [Mass/Vol] 2.8 mg/dL 2.5-4.5 [facility] Platelet mean volume Auto (B ld) [Entitic vol]Ordered By: Elpidio Whipple on 02-29-2024 Platelet mean volume (Bld) [Entitic vol] 9.5 fL 6.3-10.7 [facility] Platelets Auto (Bld) [#/Vol] Ordered By: Elpidio Whipple on 02-29-2024 Platelets (Bld) [#/Vol] 174 10*3/uL 150-450 [facility] Potassium [Moles/volume] in Serum or PlasmaOrdered By: Elpidio Whipple on 02-29-2024 Potassium [Moles/Vol] 4.6 mmol/L 3.5-5.1 [facility] Protein Auto test strip (U) [Mass/Vol]Ordered By: Elpidio Whipple on 02-29-2024 Protein (U) [Mass/Vol] 30 mg/dL Negative [facility] Protein [Mass/volume] in Uri neOrdered By: Elpidio Whipple on 02-29-2024 Protein (U) [Mass/Vol] 43 mg/dL 0-9 [facility] RBC Auto (Bld) [#/Vol]Ordere d By: Elpidio Whipple on 02-29-2024 RBC (Bld) [#/Vol] 4.61 10*6/uL 3.60-5.00 [facility] Serum or plasma anion gap de terminationOrdered By: Elpidio Whipple on 02-29-2024 Anion gap [Moles/Vol] 11.2 mmol/L 6.0-15.0 [facility] Sodium [Moles/volume] in Ser um or PlasmaOrdered By: Elpidio Whipple on 02-29-2024 Sodium [Moles/Vol] 140 mmol/L 136-145 [facility] Specific gravity Auto test s trip (U) [Rel density]Ordered By: Elpidio Whipple on 02-29-2024 Specific gravity (U) [Rel density] 1.019 1.001-1.030 [facility] Squamous epithelial cells de tection in urine sediment by light microscopyOrdered By: Elpidio Whipple on 02-29-2024 Epithelial cells.squamous LM Ql (Urine sed) 10-19 [HPF] 0-2 [facility] Urate [Mass/volume] in Serum or PlasmaOrdered By: Elpidio Whipple on 02-29-2024 Urate [Mass/Vol] 7.1 mg/dL 2.3-6.6 [facility] Urea nitrogen [Mass/volume] in Serum or PlasmaOrdered By: Elpidio Whipple on 02-29-2024 Urea nitrogen [Mass/Vol] 29 mg/dL 7-25 [facility] Urine bacteria detection by automated methodOrdered By: Elpidio Whipple on 02-29-2024 Bacteria Auto Ql (U) None seen None Seen [facility] Urine clarity by refractomet ry automatedOrdered By: Elpidio Whipple on 02-29-2024 Clarity Refractometry automated (U) Clear Clear [facility] Urine culture routineOrdered By: Elpidio Whipple on 02-29-2024 Bacteria identified Cx Nom (U) 2 Days [facility] Urine glucose measurement by automated test strip (mass/volume)Ordered By: Elpidio Whipple on 02-29-2024 Glucose Auto test strip (U) [Mass/Vol] Normal mg/dL Normal [facility] Urine hemoglobin detection b y automated test stripOrdered By: Elpidio Whipple on 02-29-2024 Hemoglobin Auto test strip Ql (U) Negative Negative [facility] Urine leukocyte esterase det ection by automated test stripOrdered By: Elpidio Whipple on 02-29-2024 Leukocyte esterase Auto test strip Ql (U) 2+ Negative [facility] Urine protein/creatinine rat ioOrdered By: Elpidio Whipple on 02-29-2024 Protein/Creatinine (U) [Ratio] 426 mg/g{Cre} 0-200 [facility] Urobilinogen Auto test strip (U) [Mass/Vol]Ordered By: Elpidio Whipple on 02-29-2024 Urobilinogen (U) [Mass/Vol] Normal mg/dL Normal [facility] Vitamin D+Metabolites [Mass/ volume] in Serum or PlasmaOrdered By: Elpidio Whipple on 02-29-2024 Vitamin D+Metabolites [Mass/Vol] 48.0 ng/mL 30-100 [facility] Comment on above: VITAMIN D STATUS 25( [place])VITAMIN D RANGE (ng/mL) Deficient <20 Insufficient 20 to <30Sufficient 30 to 100Reference: Nayeli MF,Hannah SCHREIBER, Jose GILBERT, et al. Evaluation,treatment, and prevention of vitamin D deficiency; an Endocrine Society clinical practice guideline. JCEM. 2010; 96(7):1911-30. pH Auto test strip (U)Ordere d By: Elpidio Whipple on 02-29-2024 pH (U) 5.5 [pH] 5.0-9.0 [facility] RSVon 12-30-2023 RSV Ag IA Ql (Unsp spec) Negative [employer] Other Alanine aminotransferase [En zymatic activity/volume] in Serum or PlasmaOrdered By: Charan Casey on 11-26-2023 ALT [Catalytic activity/Vol] 16 U/L 7-52 [facility] Albumin [Mass/volume] in Ser um or Plasma by Bromocresol green (BCG) dye binding methoOrdered By: Charan Casey on 11-26-2023 Albumin BCG dye [Mass/Vol] 4.2 g/dL 3.5-5.7 [facility] Alkaline phosphatase [Enzyma tic activity/volume] in Serum or PlasmaOrdered By: Charan Casey on 11-26-2023 ALP [Catalytic activity/Vol] 65 U/L 34-104 [facility] Aspartate aminotransferase [ Enzymatic activity/volume] in Serum or PlasmaOrdered By: Charan Casey on 11-26-2023 AST [Catalytic activity/Vol] 16 U/L 13-39 [facility] Bilirubin.total [Mass/volume ] in Serum or PlasmaOrdered By: Charan Casey on 11-26-2023 Bilirubin [Mass/Vol] 0.6 mg/dL 0.3-1.0 [facility] Calcium [Mass/volume] in Ser um or PlasmaOrdered By: Charan Casey on 11-26-2023 Calcium [Mass/Vol] 9.8 mg/dL 8.6-10.3 [facility] Carbon dioxide, total [Moles /volume] in Serum or PlasmaOrdered By: Charan Casey on 11-26-2023 CO2 [Moles/Vol] 34.6 mmol/L 21.0-31.0 [facility] Chloride [Moles/volume] in S john or PlasmaOrdered By: Charan Casey on 11-26-2023 Chloride [Moles/Vol] 101 mmol/L 98-107 [facility] Cholesterol [Mass/volume] in Serum or PlasmaOrdered By: Charan Casey on 11-26-2023 Cholesterol [Mass/Vol] 140 mg/dL 140-200 [facility] Comment on above: Chol less than 200 m g/dl low riskChol 201-239 mg/dl borderline riskChol 240 mg/dl and greater high risk Cholesterol in LDL Calc [Mas s/Vol]Ordered By: Charan Casey on 11-26-2023 Cholesterol in LDL [Mass/Vol] 56 mg/dL 0-100 [facility] Comment on above: LDL ATP III CLASSIFI CATIONLDL less than 100 mg/dL OptimalLDL 100-129 mg/dL Near or above optimalLDL 130-159 mg/dL Borderline highLDL 160-189 mg/dL HighLDL greater than 189 mg/dL Very high Cholesterol in VLDL Calc [Ma ss/Vol]Ordered By: Charan Casey on 11-26-2023 Cholesterol in VLDL [Mass/Vol] 45 mg/dL [facility] Creatinine [Mass/volume] in Serum or PlasmaOrdered By: Charan Casey on 11-26-2023 Creatinine [Mass/Vol] 1.25 mg/dL 0.60-1.20 [facility] Globulin Calc (S) [Mass/Vol] Ordered By: Charan Casey on 11-26-2023 Globulin (S) [Mass/Vol] 2.6 g/dL [facility] Glucose [Mass/volume] in Ser um or PlasmaOrdered By: Charan Casey on 11-26-2023 Glucose [Mass/Vol] 122 mg/dL 70-100 [facility] Comment on above: ADA recommended refe rence rangeRandom Glucose Reference Range is dependent on time and content of last meal. Glucose of more than 200 mg/dL in a nonstressed, ambulatory subject supports the diagnosis of Diabetes Mellitus. No Panel InformationOrdered By: Charan Casey on 11-26-2023 Estimated GFR (CKD-EPI) 48.432 mL/Min [facility] Creatinine Clearance (Chem N/A [facility] Potassium [Moles/volume] in Serum or PlasmaOrdered By: Charan Casey on 11-26-2023 Potassium [Moles/Vol] 4.6 mmol/L 3.5-5.1 [facility] Protein [Mass/volume] in Ser um or PlasmaOrdered By: Charan Casey on 11-26-2023 Protein [Mass/Vol] 6.8 g/dL 6.4-8.9 [facility] Serum or plasma albumin/glob ulin mass ratioOrdered By: Charan Casey on 11-26-2023 Albumin/Globulin [Mass ratio] 1.6 {ratio} [facility] Serum or plasma anion gap de terminationOrdered By: Charan Casey on 11-26-2023 Anion gap [Moles/Vol] 9.0 mmol/L 6.0-15.0 [facility] Serum or plasma high density lipoprotein (HDL) cholesterol measurementOrdered By: Charan Casey on 11-26-2023 Cholesterol in HDL [Mass/Vol] 39 mg/dL 23-92 [facility] Comment on above: HDL CHOL ATP-III CLA SSIFICATION Cardiovascular RiskHDL > or equal to 60 mg/dL LOWHDL < 40 mg/dL HIGH Serum or plasma total choles terol/high density lipoprotein (HDL) cholesterol mass ratOrdered By: Charan Casey on 11-26-2023 Cholesterol.total/Mary sterol in HDL [Mass ratio] 3.6 {ratio} <5.0 [facility] Sodium [Moles/volume] in Ser um or PlasmaOrdered By: Charan Casey on 11-26-2023 Sodium [Moles/Vol] 140 mmol/L 136-145 [facility] Triglyceride [Mass/volume] i n Serum or PlasmaOrdered By: Charan Casey on 11-26-2023 Triglyceride [Mass/Vol] 227 mg/dL 0-149 [facility] Comment on above: TRIG ATP III CLASSIF ICATIONTRIG less than 150 mg/dL NormalTRIG 150-199 mg/dL Borderline highTRIG 200-500 mg/dL High TRIG greater than 500 mg/dL Very highStandard traceable to the Center for Disease Conrtrol and Prevention (CDC) test method. Urea nitrogen [Mass/volume] in Serum or PlasmaOrdered By: Charan Casey on 11-26-2023 Urea nitrogen [Mass/Vol] 32 mg/dL 06-23 [facility] Glucose Glucometer (BldC) [M ass/Vol]Ordered By: Yasmeen Treadwell on 10-06-2023 Glucose [Mass/Vol] 150 mg/dL [facility] Comment on above: Random Glucose Refer ence Range is dependent on time and content of last meal. Glucose of more than 200 mg/dL in a nonstressed, ambulatory subject supports the diagnosis of Diabetes Mellitus. Albumin [Mass/volume] in Ser um or Plasma by Bromocresol green (BCG) dye binding methoOrdered By: Elpidio Whipple on 09-14-2023 Albumin BCG dye [Mass/Vol] 4.5 g/dL 3.5-5.7 [facility] Automated erythrocytes count in urine sediment (number/area)Ordered By: Elpidio Whipple on 09-14-2023 RBC Auto (Urine sed) [#/Area] None seen [HPF] 0-4 [facility] Automated leukocytes count i n urine sediment (number/area)Ordered By: Elpidio Whipple on 09-14-2023 WBC Auto (Urine sed) [#/Area] 1-2 [HPF] 0-4 [facility] Bilirubin Test strip Ql (U)O rdered By: Elpidio Whipple on 09-14-2023 Bilirubin Ql (U) Negative Negative [facility] Calcium [Mass/volume] in Ser um or PlasmaOrdered By: Elpidio Whipple on 09-14-2023 Calcium [Mass/Vol] 9.5 mg/dL 8.6-10.3 [facility] Carbon dioxide, total [Moles /volume] in Serum or PlasmaOrdered By: Elpidio Whipple on 09-14-2023 CO2 [Moles/Vol] 29.7 mmol/L 21.0-31.0 [facility] Chloride [Moles/volume] in S john or PlasmaOrdered By: Elpidio Whipple on 09-14-2023 Chloride [Moles/Vol] 106 mmol/L 98-107 [facility] Color Auto (U)Ordered By: Ab rahul Whipple on 09-14-2023 Color (U) Dark yellow Yellow [facility] Creatinine [Mass/volume] in Serum or PlasmaOrdered By: Elpidio Whipple on 09-14-2023 Creatinine [Mass/Vol] 1.29 mg/dL 0.60-1.20 [facility] Creatinine [Mass/volume] in UrineOrdered By: Elpidio Whipple on 09-14-2023 Creatinine (U) [Mass/Vol] 87.0 mg/dL 11.0-20.0 [facility] Erythrocyte distribution wid th Auto (RBC) [Ratio]Ordered By: Elpidio Whipple on 09-14-2023 Erythrocyte distribution width (RBC) [Ratio] 13.5 % 11.9-15.3 [facility] Glucose [Mass/volume] in Ser um or PlasmaOrdered By: Elpidio Whipple on 09-14-2023 Glucose [Mass/Vol] 97 mg/dL 70-100 [facility] Comment on above: ADA recommended refe rence rangeRandom Glucose Reference Range is dependent on time and content of last meal. Glucose of more than 200 mg/dL in a nonstressed, ambulatory subject supports the diagnosis of Diabetes Mellitus. Hematocrit Auto (Bld) [Volum e fraction]Ordered By: Elpidio Whipple on 09-14-2023 Hematocrit (Bld) [Volume fraction] 42.7 % 34.0-46.4 [facility] Hemoglobin [Mass/volume] in BloodOrdered By: Elpidio Whipple on 09-14-2023 Hemoglobin (Bld) [Mass/Vol] 14.3 g/dL 11.8-15.4 [facility] Ketones Auto test strip (U) [Mass/Vol]Ordered By: Elpidio Whipple on 09-14-2023 Ketones (U) [Mass/Vol] Negative Negative [facility] - UrinalysisOrder ed By: Elpidio Whipple on 09-14-2023 Hyaline casts LM Ql (Urine sed) 0-8 [LPF] 0-8 [facility] Leukocytes [#/volume] correc praneeth for nucleated erythrocytes in Blood by Automated counOrdered By: Elpidio Whipple on 09-14-2023 WBC corrected for nucl RBC Auto (Bld) [#/Vol] 7.7 10*3/uL 3.8-11.6 [facility] MCH Auto (RBC) [Entitic mass ]Ordered By: Elpidio Whipple on 09-14-2023 MCH (RBC) [Entitic mass] 29.1 pg 24.7-34.3 [facility] MCHC Auto (RBC) [Mass/Vol]Or dered By: Elpidio Whipple on 09-14-2023 MCHC (RBC) [Mass/Vol] 33.6 g/dL 32.0-35.0 [facility] MCV Auto (RBC) [Entitic vol] Ordered By: Elpidio Whipple on 09-14-2023 MCV (RBC) [Entitic vol] 86.5 fL 80-100 [facility] Magnesium [Mass/volume] in S john or PlasmaOrdered By: Elpidio Whipple on 09-14-2023 Magnesium [Mass/Vol] 1.9 mg/dL 1.9-2.7 [facility] Nitrite Test strip Ql (U)Ord ered By: Elpidio Whipple on 09-14-2023 Nitrite Ql (U) Negative Negative [facility] No Panel InformationOrdered By: Elpidio Whipple on 09-14-2023 Estimated GFR (CKD-EPI) 46.926 mL/Min [facility] Creatinine Clearance (Chem N/A [facility] Parathyrin.intact [Mass/volu me] in Serum or PlasmaOrdered By: Elpidio Whipple on 09-14-2023 Parathyrin.intact [Mass/Vol] 133.6 pg/mL 12-88 [facility] Phosphate [Mass/volume] in S john or PlasmaOrdered By: Elpidio Silvadir on 09-14-2023 Phosphate [Mass/Vol] 3.4 mg/dL 3.7-7.2 [facility] Platelet mean volume Auto (B ld) [Entitic vol]Ordered By: Elpidio Sole on 09-14-2023 Platelet mean volume (Bld) [Entitic vol] 10.0 fL 6.3-10.7 [facility] Platelets Auto (Bld) [#/Vol] Ordered By: Elpidio Sole on 09-14-2023 Platelets (Bld) [#/Vol] 193 10*3/uL 150-450 [facility] Potassium [Moles/volume] in Serum or PlasmaOrdered By: Elpidio Sole on 09-14-2023 Potassium [Moles/Vol] 4.7 mmol/L 3.5-5.1 [facility] Protein Auto test strip (U) [Mass/Vol]Ordered By: Elipdio Sole on 09-14-2023 Protein (U) [Mass/Vol] Negative Negative [facility] Protein [Mass/volume] in Uri neOrdered By: Elpidio Sole on 09-14-2023 Protein (U) [Mass/Vol] 12 mg/dL 0-9 [facility] RBC Auto (Bld) [#/Vol]Ordere d By: Elpidio Sole on 09-14-2023 RBC (Bld) [#/Vol] 4.93 10*6/uL 3.60-5.00 [facility] Serum or plasma anion gap de terminationOrdered By: Elpidio Sole on 09-14-2023 Anion gap [Moles/Vol] 11.0 mmol/L 6.0-15.0 [facility] Sodium [Moles/volume] in Ser um or PlasmaOrdered By: Elpidio Sole on 09-14-2023 Sodium [Moles/Vol] 142 mmol/L 136-145 [facility] Specific gravity Auto test s trip (U) [Rel density]Ordered By: Elpidio Sole on 09-14-2023 Specific gravity (U) [Rel density] 1.020 1.001-1.030 [facility] Squamous epithelial cells de tection in urine sediment by light microscopyOrdered By: Elpidio Whipple on 09-14-2023 Epithelial cells.squamous LM Ql (Urine sed) 3-4 [HPF] 0-2 [facility] Urate [Mass/volume] in Serum or PlasmaOrdered By: Elpidio Whipple on 09-14-2023 Urate [Mass/Vol] 6.2 mg/dL 2.3-6.6 [facility] Urea nitrogen [Mass/volume] in Serum or PlasmaOrdered By: Elpidio Whipple on 09-14-2023 Urea nitrogen [Mass/Vol] 46 mg/dL 7-25 [facility] Urine bacteria detection by automated methodOrdered By: Elpidio Whipple on 09-14-2023 Bacteria Auto Ql (U) None seen None Seen [facility] Urine clarity by refractomet ry automatedOrdered By: Elpidio Whipple on 09-14-2023 Clarity Refractometry automated (U) Clear Clear [facility] Urine glucose measurement by automated test strip (mass/volume)Ordered By: Elpidio Whipple on 09-14-2023 Glucose Auto test strip (U) [Mass/Vol] Normal mg/dL Normal [facility] Urine hemoglobin detection b y automated test stripOrdered By: Elpidio Whipple on 09-14-2023 Hemoglobin Auto test strip Ql (U) Negative Negative [facility] Urine leukocyte esterase det ection by automated test stripOrdered By: Elpidio Whipple on 09-14-2023 Leukocyte esterase Auto test strip Ql (U) 1+ Negative [facility] Urine protein/creatinine rat ioOrdered By: Elpidio Whipple on 09-14-2023 Protein/Creatinine (U) [Ratio] 138 mg/g{Cre} 0-200 [facility] Urobilinogen Auto test strip (U) [Mass/Vol]Ordered By: Elpidio Whipple on 09-14-2023 Urobilinogen (U) [Mass/Vol] Normal mg/dL Normal [facility] Vitamin D+Metabolites [Mass/ volume] in Serum or PlasmaOrdered By: Elpidio Whipple on 09-14-2023 Vitamin D+Metabolites [Mass/Vol] 50.6 ng/mL 30-100 [facility] Comment on above: VITAMIN D STATUS 25( [place])VITAMIN D RANGE (ng/mL) Deficient <20 Insufficient 20 to <30Sufficient 30 to 100Reference: Nayeli MF,Hannah SCHREIBER, Jose GILBERT, et al. Evaluation,treatment, and prevention of vitamin D deficiency; an Endocrine Society clinical practice guideline. JCEM. 2010; 96(7):1911-30. pH Auto test strip (U)Ordere d By: Elpidio Whipple on 09-14-2023 pH (U) 5.5 [pH] 5.0-9.0 [facility] Urine 10 SGon 05-19-2023 Albumin DL <= 20 mg/L (U) [Mass/Vol] Negative [employer] Other pH (U) 6.0 [pH] [employer] Other Urine 10 SG Negative [employer] Other Urine 10 SG 1.010 [employer] Other Urine 10 SG 0.2 [employer] Other Height or Weight NOT Doneon 04-30-2023 Adult depression screening assessment No [facility] [employer] DO Work Phone: Fall risk assessment a) No falls within the last year [facility] [employer] DO Work Phone: Tobacco use status [facility] b) No [facility] Ply[facility] DO Work Phone: Office Visit (Cardiology)on 04-30-2023 [...] any trouble since her angioplasty. She has Pjkswpg-Flxpe-Hrrin disease and had recent surgery on the [...] machine patient has been compliant with it. 7?Chkgmcs-Wlole-Cmdmp joint in the ankles status post recent [...] TABLET DAILY. Vitamin D (Ergocalciferol) 1.25 MG (24384 UT) Oral CapsuleTake 1 tablet twice weekly Allergies Medication Erythromycin Base TABS Adverse Reaction; Gatrointestinal upset; Updated By: Adrianna Emanuel; (more content not included)... Normal [facility] POINT OF CARE GLUCOSEon 03-30 Glucose [Mass/Vol] 215 mg/dL Critically high 74-106 [facility] Comment on above: Performed By: #### P OCGLUC ####[facility] [address] [address]Dr. Tere Soto PROF CHEM 8 (BAS METB)on Anion gap [Moles/Vol] 9.6 mmol/L Normal [facility] Comment on above: Performed By: #### B MP ####[facility] [address] [place], [place] [address]Dr. Tere Soto Calcium [Mass/Vol] 10.3 mg/dL Critically high 8.5-10.1 [facility] Comment on above: Performed By: #### B MP ####[facility] [address] [place], [place] [address]Dr. Tere Soto Chloride [Moles/Vol] 103 mmol/L Normal 98-107 [facility] Comment on above: Performed By: #### B MP ####[facility] [address] [place], [place] [address]Dr. Tere Soto CO2 [Moles/Vol] 31.0 mmol/L Normal 21.0-32.0 [facility] Comment on above: Performed By: #### B MP ####[facility] [address] [place], [place] [address]Dr. Tere Soto Creatinine [Mass/Vol] 1.48 mg/dL Critically high 0.55-1.02 [facility] Comment on above: Performed By: #### B MP ####[facility] [address] [place], [place] [address]Dr. Tere Soto EGFR-AF PRYDEINIG 43 mL/min/1.73m2 Critically low >=60 [facility] Comment on above: Performed By: #### B MP ####[facility] [address] [place], [place] [address]Dr. Tere Soto EGFR-NON AF PRYDEINIG 36 mL/min/1.73m2 Critically low >=60 [facility] Comment on above: Performed By: #### B MP ####[facility] [address] [place], [place] [address]Fp. Tere Soto Glucose [Mass/Vol] 173 mg/dL Critically high 74-106 [facility] Comment on above: Performed By: #### B MP ####[facility] [address] [place], [place] [address]Lx. Tere Soto Potassium [Moles/Vol] 4.6 mmol/L Normal 3.5-5.1 [facility] Comment on above: Performed By: #### B MP ####[facility] [address] [id number]. Tere Soto Sodium [Moles/Vol] 139 mmol/L Normal 136-145 [facility] Comment on above: Performed By: #### B MP ####[facility] [address] [address]Dr. Tere Soto Urea nitrogen [Mass/Vol] 63.0 mg/dL Critically high 7.0-18.0 [facility] Comment on above: Performed By: #### B MP ####[facility] [address] [place] [id number]. Tere Soto Urea nitrogen/Creatinine [Mass ratio] 42.6 mg/mg Normal [facility] Comment on above: Performed By: #### B MP ####[facility] [id number]. Tere Soto CT FOOT LT WO CONon [...] by: BLANKA OLGUIN Date: 2023-03-23 14:59 Normal [facility] Albumin [Mass/volume] in Ser um or Plasma by Bromocresol green (BCG) dye binding methoOrdered By: Elpidio Whipple on 03-06-2023 Albumin BCG dye [Mass/Vol] 4.7 g/dL 3.5-5.7 [facility] Automated erythrocytes count in urine sediment (number/area)Ordered By: Elpidio Whipple on 03-06-2023 RBC Auto (Urine sed) [#/Area] None seen [HPF] 0-4 [facility] Automated leukocytes count i n urine sediment (number/area)Ordered By: Elpidio Whipple on 03-06-2023 WBC Auto (Urine sed) [#/Area] 5-9 [HPF] 0-4 [facility] Bilirubin Test strip Ql (U)O rdered By: Elpidio Whipple on 03-06-2023 Bilirubin Ql (U) Negative Negative [facility] Calcium [Mass/volume] in Ser um or PlasmaOrdered By: Elpidio Whipple on 03-06-2023 Calcium [Mass/Vol] 10.2 mg/dL 8.6-10.3 [facility] Carbon dioxide, total [Moles /volume] in Serum or PlasmaOrdered By: Elpidio Whipple on 03-06-2023 CO2 [Moles/Vol] 28.4 mmol/L 21.0-31.0 [facility] Chloride [Moles/volume] in S john or PlasmaOrdered By: Elpidio Whipple on 03-06-2023 Chloride [Moles/Vol] 104 mmol/L 98-107 [facility] Color Auto (U)Ordered By: Ab rahul Whipple on 03-06-2023 Color (U) Dark yellow Yellow [facility] Creatinine [Mass/volume] in Serum or PlasmaOrdered By: Elpidio Whipple on 03-06-2023 Creatinine [Mass/Vol] 1.22 mg/dL 0.60-1.20 [facility] Creatinine [Mass/volume] in UrineOrdered By: Elpidio Whipple on 03-06-2023 Creatinine (U) [Mass/Vol] 98.0 mg/dL [facility] Comment on above: No reference range e stablished Erythrocyte distribution wid th Auto (RBC) [Ratio]Ordered By: Elpidio Whipple on 03-06-2023 Erythrocyte distribution width (RBC) [Ratio] 13.8 % 11.9-15.3 [facility] Glucose [Mass/volume] in Ser um or PlasmaOrdered By: Elpidio Whipple on 03-06-2023 Glucose [Mass/Vol] 101 mg/dL 70-100 [facility] Comment on above: ADA recommended refe rence rangeRandom Glucose Reference Range is dependent on time and content of last meal. Glucose of more than 200 mg/dL in a nonstressed, ambulatory subject supports the diagnosis of Diabetes Mellitus. Hematocrit Auto (Bld) [Volum e fraction]Ordered By: Elpidio Whipple on 03-06-2023 Hematocrit (Bld) [Volume fraction] 38.1 % 34.0-46.4 [facility] Hemoglobin [Mass/volume] in BloodOrdered By: Elpidio Whipple 03-06-2023 Hemoglobin (Bld) [Mass/Vol] 12.7 g/dL 11.8-15.4 [facility] Ketones Auto test strip (U) [Mass/Vol]Ordered By: Elpidio Whipple on 03-06-2023 Ketones (U) [Mass/Vol] Negative Negative [facility] - UrinalysisOrder ed By: Elpidio Whipple on 03-06-2023 Hyaline casts LM Ql (Urine sed) 0-8 [LPF] 0-8 [facility] Leukocytes [#/volume] correc praneeth for nucleated erythrocytes in Blood by Automated counOrdered By: Elpidio Whipple on 03-06-2023 WBC corrected for nucl RBC Auto (Bld) [#/Vol] 5.4 10*3/uL 3.8-11.6 [facility] MCH Auto (RBC) [Entitic mass ]Ordered By: Elpidio Whipple on 03-06-2023 MCH (RBC) [Entitic mass] 28.1 pg 24.7-34.3 [facility] MCHC Auto (RBC) [Mass/Vol]Or dered By: Elpidio Whipple on 03-06-2023 MCHC (RBC) [Mass/Vol] 33.3 g/dL 32.0-35.0 [facility] MCV Auto (RBC) [Entitic vol] Ordered By: Elpidio Whipple on 03-06-2023 MCV (RBC) [Entitic vol] 84.5 fL 80-100 [facility] Magnesium [Mass/volume] in S john or PlasmaOrdered By: Elpidio Whipple on 03-06-2023 Magnesium [Mass/Vol] 1.5 mg/dL 1.9-2.7 [facility] Nitrite Test strip Ql (U)Ord ered By: Elpidio Whipple on 03-06-2023 Nitrite Ql (U) Negative Negative [facility] No Panel InformationOrdered By: Elpidio Whipple on 03-06-2023 Estimated GFR (CKD-EPI) 50.176 mL/Min [facility] Creatinine Clearance (Chem N/A [facility] Parathyrin.intact [Mass/volu me] in Serum or PlasmaOrdered By: Elpidio Whipple on 03-06-2023 Parathyrin.intact [Mass/Vol] 43.8 pg/mL 12-88 [facility] Phosphate [Mass/volume] in S john or PlasmaOrdered By: Elpidio Whipple on 03-06-2023 Phosphate [Mass/Vol] 4.3 mg/dL 3.7-7.2 [facility] Platelet mean volume Auto (B ld) [Entitic vol]Ordered By: Elpidio Whipple on 03-06-2023 Platelet mean volume (Bld) [Entitic vol] 8.7 fL 6.3-10.7 [facility] Platelets Auto (Bld) [#/Vol] Ordered By: Elpidio Sole on 03-06-2023 Platelets (Bld) [#/Vol] 191 10*3/uL 150-450 [facility] Potassium [Moles/volume] in Serum or PlasmaOrdered By: Elpidio Sole on 03-06-2023 Potassium [Moles/Vol] 4.0 mmol/L 3.5-5.1 [facility] Protein Auto test strip (U) [Mass/Vol]Ordered By: Elpidio Sole on 03-06-2023 Protein (U) [Mass/Vol] Negative Negative [facility] Protein [Mass/volume] in Uri neOrdered By: Elpidio Sole on 03-06-2023 Protein (U) [Mass/Vol] 8 mg/dL 0-9 [facility] RBC Auto (Bld) [#/Vol]Ordere d By: Elpidio Sole on 03-06-2023 RBC (Bld) [#/Vol] 4.51 10*6/uL 3.60-5.00 [facility] Serum or plasma anion gap de terminationOrdered By: Elpidio Sole on 03-06-2023 Anion gap [Moles/Vol] 12.6 mmol/L 6.0-15.0 [facility] Sodium [Moles/volume] in Ser um or PlasmaOrdered By: Elpidio Sole on 03-06-2023 Sodium [Moles/Vol] 141 mmol/L 136-145 [facility] Specific gravity Auto test s trip (U) [Rel density]Ordered By: Elpidio Zarater on 03-06-2023 Specific gravity (U) [Rel density] 1.017 1.001-1.030 [facility] Squamous epithelial cells de tection in urine sediment by light microscopyOrdered By: Elpidio Zarater on 03-06-2023 Epithelial cells.squamous LM Ql (Urine sed) 5-9 [HPF] 0-2 [facility] Urate [Mass/volume] in Serum or PlasmaOrdered By: Elpidio Sole on 03-06-2023 Urate [Mass/Vol] 6.7 mg/dL 2.3-6.6 [facility] Urea nitrogen [Mass/volume] in Serum or PlasmaOrdered By: Elpidio Whipple on 03-06-2023 Urea nitrogen [Mass/Vol] 37 mg/dL 7-25 [facility] Urine bacteria detection by automated methodOrdered By: Elpidio Whipple on 03-06-2023 Bacteria Auto Ql (U) None seen None Seen [facility] Urine clarity by refractomet ry automatedOrdered By: Elpidio Whipple on 03-06-2023 Clarity Refractometry automated (U) Clear Clear [facility] Urine culture routineOrdered By: Elpidio Whipple on 03-06-2023 Bacteria identified Cx Nom (U) 2 Days [facility] Urine glucose measurement by automated test strip (mass/volume)Ordered By: Elpidio Whipple on 03-06-2023 Glucose Auto test strip (U) [Mass/Vol] Normal mg/dL Normal [facility] Urine hemoglobin detection b y automated test stripOrdered By: Elpidio Whipple on 03-06-2023 Hemoglobin Auto test strip Ql (U) Negative Negative [facility] Urine leukocyte esterase det ection by automated test stripOrdered By: Elpidio Whipple on 03-06-2023 Leukocyte esterase Auto test strip Ql (U) 2+ Negative [facility] Urine protein/creatinine rat ioOrdered By: Elpidio Whipple on 03-06-2023 Protein/Creatinine (U) [Ratio] 82 mg/g{Cre} 0-200 [facility] Urobilinogen Auto test strip (U) [Mass/Vol]Ordered By: Elpidio Whipple on 03-06-2023 Urobilinogen (U) [Mass/Vol] Normal mg/dL Normal [facility] Vitamin D+Metabolites [Mass/ volume] in Serum or PlasmaOrdered By: Elpidio Whipple on 03-06-2023 Vitamin D+Metabolites [Mass/Vol] 46.0 ng/mL 30-100 [facility] Comment on above: VITAMIN D STATUS 25( [place])VITAMIN D RANGE (ng/mL) Deficient <20 Insufficient 20 to <30Sufficient 30 to 100Reference: Nayeli MF,Hannah NC, Jose GILBERT, et al. Evaluation,treatment, and prevention of vitamin D deficiency; an Endocrine Society clinical practice guideline. JCEM. 2010; 96(7):1911-30. pH Auto test strip (U)Ketan scott By: Elpidio Whipple on 03-06-2023 pH (U) 5.5 [pH] 5.0-9.0 [facility] XR FOOT LAURA MIN 3 VIEWSon XR [...] by: BRODERICK FLOR Date: 2023-02-17 14:34 Normal [facility] CBC AUTO DIFFon 12-23-2022 BASO # 0.0 103/ul Normal 0.0-0.1 [facility] Comment on above: Performed By: #### C BC #### [facility] [address] [address] [address] Tere Soto Basophils/100 WBC (Bld) 0.6 % Normal 0.2-2.0 [facility] Comment on above: Performed By: #### C BC #### [facility] [address] [address] [address] Tere Soto EO # 0.1 103/ul Normal 0.0-0.7 [facility] Comment on above: Performed By: #### C BC #### [facility] [address] [place] [address] Dr. Tere Soto Eosinophils/100 WBC (Bld) 2.9 % Normal 0.9-7.0 [facility] Comment on above: Performed By: #### C BC #### [facility] [address] [place] [address] Dr. Tere Soto Erythrocyte distribution width (RBC) [Ratio] 13.2 % Normal 11.0-15.0 [facility] Comment on above: Performed By: #### C BC #### [facility] [address] [place] [address] Dr. Tere Soto Hematocrit (Bld) [Volume fraction] 39.0 % Normal 36.0-48.0 [facility] Comment on above: Performed By: #### C BC #### [facility] [address] [place] [address] Dr. Tere Soto Hemoglobin (Bld) [Mass/Vol] 13.0 g/dL Normal 12.0-16.0 [facility] Comment on above: Performed By: #### C BC #### [facility] [address] [place] [address] Dr. Tere Soto IG # 0.01 10e3/ul Normal 0.00-0.03 [facility] Comment on above: Performed By: #### C BC #### [facility] [address] [place] [address] Dr. Tere Soto IG % 0.2 % Normal 0.0-0.5 [facility] Comment on above: Performed By: #### C BC #### [facility] [address] [place] [address] Dr. Tere Soto LYMPH # 2.1 103/ul Normal 1.2-3.8 [facility] Comment on above: Performed By: #### C BC #### [facility] [address] [place] [address] Dr. Tere Soto Lymphocytes/100 WBC (Bld) 42.6 % Normal 20.5-60.0 [facility] Comment on above: Performed By: #### C BC #### [facility] [address] [place] [address] Dr. Tere Soto MANUAL DIFF REQ NO Normal [facility] Comment on above: Performed By: #### C BC #### [facility] [address] [place] [address] Dr. Tere Soto MCH (RBC) [Entitic mass] 28.4 pg Normal 26.7-34.0 [facility] Comment on above: Performed By: #### C BC #### [facility] [address] [place] [address] Dr. Tere Soto MCHC (RBC) [Mass/Vol] 33.3 g/dL Normal 29.9-35.2 [facility] Comment on above: Performed By: #### C BC #### [facility] [address] [place] [address] Dr. Tere Soto MCV (RBC) [Entitic vol] 85.2 fL Normal 81.0-99.0 [facility] Comment on above: Performed By: #### C BC #### [facility] [address] [place] [address] Dr. Tere Soto MONO # 0.3 103/ul Normal 0.3-0.8 [facility] Comment on above: Performed By: #### C BC #### [facility] [address] [place] [address] Dr. Tere Soto Monocytes/100 WBC (Bld) 6.8 % Normal 1.7-12.0 [facility] Comment on above: Performed By: #### C BC #### [facility] [address] [place] [address] Dr. Tere Soto NEUT # 2.3 103/ul Normal 1.4-6.5 [facility] Comment on above: Performed By: #### C BC #### [facility] [address] [place] [address] Dr. Tere Soto Neutrophils/100 WBC (Bld) 46.9 % Normal 43.0-75.0 [facility] Comment on above: Performed By: #### C BC #### [facility] [address] [place] [address] Dr. Tere Soto Platelet mean volume (Bld) [Entitic vol] 11.3 fL Normal 9.5-13.5 [facility] Comment on above: Performed By: #### C BC #### [facility] [address] [place] [address] Dr. Tere Soto PLT 183 103/ul Normal 150-450 [facility] Comment on above: Performed By: #### C BC #### [facility] [address] [place] [address] Dr. Tere Soto RBC 4.58 106/ul Normal 4.20-5.40 [facility] Comment on above: Performed By: #### C BC #### [facility] [address] [place] [address] Dr. Tere Soto WBC 4.8 103/ul Normal 4.0-11.0 [facility] Comment on above: Performed By: #### C BC #### [facility] [address] [place] [address] Dr. Tere Soto Covid-19 PCR ([facility])on 12-01 SARS-CoV-2 (COVID-19) RNA AHMET+probe Ql (Unsp spec) Not detected Normal NOT DETECTED [facility] Comment on above: Result Comment: This test is not yet approved or cleared by the [place] FDA. When there are no FDA-approved or cleared tests available, and other criteria are met, FDA can make tests available under an emergency access mechanism called an Emergency Use Authorization (EUA). The EUA for this test is supported by the [employer] Operator of Health and Human Service's (HHS's) declaration [...] SARS-CoV-2. Performed By: #### C VDTB #### [facility] [address] [place] [address] Dr. Tere Soto PROF CHEM 8 (BAS METB)on Anion gap [Moles/Vol] 13.6 mmol/L Normal [facility] Comment on above: Performed By: #### B MP #### [facility] [address] [place] [address] Dr. Tere Soto Calcium [Mass/Vol] 9.6 mg/dL Normal 8.5-10.1 [facility] Comment on above: Performed By: #### B MP #### [facility] [address] [place] [address] Dr. Tere Soto Chloride [Moles/Vol] 103 mmol/L Normal 98-107 [facility] Comment on above: Performed By: #### B MP #### [facility] [address] [place] [address] Dr. Tere Soto CO2 [Moles/Vol] 28.9 mmol/L Normal 21.0-32.0 [facility] Comment on above: Performed By: #### B MP #### [facility] [address] [place] [address] Dr. Tere Soto Creatinine [Mass/Vol] 1.25 mg/dL Critically high 0.55-1.02 [facility] Comment on above: Performed By: #### B MP #### [facility] [address] [place] [address] Dr. Tere Soto EGFR-AF PRYDEINIG 53 mL/min/1.73m2 Critically low >=60 [facility] Comment on above: Performed By: #### B MP #### [facility] [address] [place] [address] Dr. Tere Soto EGFR-NON AF PRYDEINIG 43 mL/min/1.73m2 Critically low >=60 [facility] Comment on above: Performed By: #### B MP #### [facility] [address] [place] [address] Dr. Tere Soto Glucose [Mass/Vol] 121 mg/dL Critically high 74-106 [facility] Comment on above: Performed By: #### B MP #### [facility] [address] [address] [address] Tere Soto Potassium [Moles/Vol] 4.5 mmol/L Normal 3.5-5.1 [facility] Comment on above: Performed By: #### B MP #### [facility] [address] [address] [address] Tere Soto Sodium [Moles/Vol] 141 mmol/L Normal 136-145 [facility] Comment on above: Performed By: #### B MP #### [facility] [address] [address] [address] Tere Soto Urea nitrogen [Mass/Vol] 43.0 mg/dL Critically high 7.0-18.0 [facility] Comment on above: Performed By: #### B MP #### [facility] [address] [address] [address] Tere Soto Urea nitrogen/Creatinine [Mass ratio] 34.4 mg/mg Normal [facility] Comment on above: Performed By: #### B MP #### [facility] [address] [address] [address] Tere Soto PROTIMEon 12-23-2022 INR Coag (PPP) [Relative time] {INR} Normal [facility] Comment on above: Performed By: #### P T, PTT ####[facility] [address] [address]Dr. Tere Soto INR GUIDELINES SEE BELOW Normal [facility] Comment on above: Result Comment: RUBEN RED INR: 2.0 - 3.0 CONDITIONS NOT LISTED BELOW 2.5 - 3.5 FOR PROSTHETIC HEART VALVE REPLACEMENT 2.5 - 3.5 RECURRENT THROMBOSIS Performed By: #### P T, PTT ####[facility] [address] [id number]. Tere Soto PT Coag (PPP) [Time] 9.8 s Normal 9.0-11.6 [facility] Comment on above: Performed By: #### P T, PTT ####[facility] [address] [place], [place] [address]KeDerek Soto PTTon 12-23-2022 aPTT Coag (Bld) [Time] 26.5 s Normal 22.3-36.2 [facility] Comment on above: Performed By: #### P T, PTT ####[facility] [address] [place], [place] [address] FOOT LT WO CONon 11-26-20 [...] BRODERICK FLOR Date: 2022-11-26 16:36 Normal [facility] XR ANKLE LAURA MIN 3 VIEWSon [...] BLANKA OLGUIN Date: 2022-11-13 06:32 Normal [facility] Office Visit (Cardiology)on 11-12-2022 Follow-up visit [...] 36.0 to 36.9 in adult (278.00,V85.36) (E66.9,Z68.36) Cbvsosv-Vtyvj-Jkwwu disease (356.1) (G60.0) Orders CAD (coronary artery [...] Aminotransferase, Serum; Status:Active - Retrospective Authorization; Requested for:[id number] 09:18AM; AST; Status:Active - Retrospective Authorization; Requested for:10Feb2023 09:18AM; Lipid Panel; Status:Active - Retrospective Authorization; Requested for:10Feb2023 09:18AM; Class 2 obesity with body mass index (BMI) of 36.0 to 36.9 in adult Healthy Weight Tips; Status:Complete - Retrospective Authorization; Done: [id number] Some eating tips that can help you lose weight.; Status:Complete - Retrospective Authorization; Done: [id number] SocHx: Never a smoker Tobacco Use Screening; Status:Complete; Done: [id number] Patient Instructions Please bring all medicines, vitamins, [...] Since her last visit she has developed Wxdmxmz-Bynfo-Wlckm joint in the left foot and is [...] machine patient has been compliant with it. 7?Opxytxu-Pzivs-Kqwge joint in the left ankle and need [...] Methicillin resistant Staph aureus not isolated Normal [facility] Hgb A1Con 10-08-2022 HbA1c (Bld) [Mass fraction] 7.1 % High 4.0-5.6 [facility] Sedimentation Rateon Sedimentation Rate 44 mm/Hr High 0-20 [facility] C-Reactive Proteinon 022 C-Reactive Protein 0.4 mg/dL Normal 0.0-0.4 [facility] CBC With Platelet and Differ entialon 10-07-2022 Abs Imm Granulocytes 0.01 E9/L Normal [facility] Absolute Basophils 0.05 E9/L Normal 0.00-0.20 [facility] Absolute Eosinophils 0.15 E9/L Normal 0.05-0.50 [facility] Absolute Lymphocytes 2.20 E9/L Normal 1.50-4.00 [facility] Absolute Monocytes 0.35 E9/L Normal 0.10-0.95 [facility] Absolute Neutrophils 1.88 E9/L Normal 1.80-7.30 [facility] Basophils/100 WBC (Bld) 1.1 % Normal 0.0-2.0 [facility] Eosinophils/100 WBC (Bld) 3.2 % Normal 0.0-6.0 [facility] Hematocrit (Bld) [Volume fraction] 36.9 % Normal 34.0-48.0 [facility] Hemoglobin (Bld) [Mass/Vol] 12.4 g/dL Normal 11.5-15.5 [facility] Imm Granulocytes 0.2 % Normal 0.0-5.0 [facility] Lymphocytes/100 WBC (Bld) 47.4 % High 20.0-42.0 [facility] MCH (RBC) [Entitic mass] 29.7 pg Normal 26.0-35.0 [facility] MCHC 33.6 % Normal 32.0-34.5 [facility] MCV (RBC) [Entitic vol] 88.3 fL Normal 80.0-99.9 [facility] Monocytes/100 WBC (Bld) 7.5 % Normal 2.0-12.0 [facility] Neutrophils/100 WBC (Bld) 40.6 % Low 43.0-80.0 [facility] Platelet Count 208 E9/L Normal 130-450 [facility] Platelet mean volume (Bld) [Entitic vol] 11.7 fL Normal 7.0-12.0 [facility] RBC 4.18 E12/L Normal 3.50-5.50 [facility] RDW 13.3 fL Normal 11.5-15.0 [facility] WBC 4.6 E9/L Normal 4.5-11.5 [facility] Comprehensive Metabolic Pane alma 10-07-2022 Albumin [Mass/Vol] 4.3 g/dL Normal 3.5-5.2 [facility] ALP [Catalytic activity/Vol] 71 U/L Normal 35-104 [facility] ALT [Catalytic activity/Vol] 12 U/L Normal 0-32 [facility] Anion gap [Moles/Vol] 10 mmol/L Normal 7-16 [facility] AST [Catalytic activity/Vol] 19 U/L Normal 0-31 [facility] Bilirubin [Mass/Vol] 0.3 mg/dL Normal 0.0-1.2 [facility] Calcium [Mass/Vol] 10.3 mg/dL High 8.6-10.2 [facility] Chloride [Moles/Vol] 103 mmol/L Normal 98-107 [facility] CO2 [Moles/Vol] 27 mmol/L Normal 22-29 [facility] Creatinine [Mass/Vol] 1.2 mg/dL High 0.5-1.0 [facility] GFR/1.73 sq M.predicted among non-blacks MDRD (S/P/Bld) [Vol rate/Area] 51 mL/min/{1.73_m2} Normal >=60 [facility] Comment on above: Result Comment: Clifford [...] secretion. Glucose [Mass/Vol] 111 mg/dL High 74-99 [facility] Potassium [Moles/Vol] 4.6 mmol/L Normal 3.5-5.0 [facility] Protein [Mass/Vol] 7.3 g/dL Normal 6.4-8.3 [facility] Sodium [Moles/Vol] 140 mmol/L Normal 132-146 [facility] Urea nitrogen [Mass/Vol] 30 mg/dL High 6-23 [facility] Albumin [Mass/volume] in Ser um or PlasmaOrdered By: Charan Casey on 08-13-2022 Albumin [Mass/Vol] 3.9 g/dL 3.2-5.5 [facility] Automated erythrocytes count in urine sediment (number/area)Ordered By: Elpidio Whipple on 08-13-2022 RBC Auto (Urine sed) [#/Area] 0-1 [HPF] 0-4 [facility] Automated leukocytes count i n urine sediment (number/area)Ordered By: Elpidio Whipple on 08-13-2022 WBC Auto (Urine sed) [#/Area] None seen [HPF] 0-4 [facility] Basophils Auto (Bld) [#/Vol] Ordered By: Charan Casey on 08-13-2022 Basophils (Bld) [#/Vol] 0.1 10*3/uL 0.0-0.2 [facility] Basophils/100 WBC Auto (Bld) Ordered By: Charan Casey on 08-13-2022 Basophils/100 WBC (Bld) 1.0 % . [facility] Bilirubin Test strip Ql (U)O rdered By: Elpidio Whipple on 08-13-2022 Bilirubin Ql (U) Negative Negative [facility] Cholesterol [Mass/volume] in Serum or PlasmaOrdered By: Charan Casey on 08-13-2022 Cholesterol [Mass/Vol] 170 mg/dL 140-200 [facility] Comment on above: Chol less than 200 m g/dl low riskChol 201-239 mg/dl borderline riskChol 240 mg/dl and greater high risk Cholesterol in LDL Calc [Mas s/Vol]Ordered By: Charan Casey on 08-13-2022 Cholesterol in LDL [Mass/Vol] 101 mg/dL 0-100 [facility] Comment on above: LDL ATP III CLASSIFI CATIONLDL less than 100 mg/dL OptimalLDL 100-129 mg/dL Near or above optimalLDL 130-159 mg/dL Borderline highLDL 160-189 mg/dL HighLDL greater than 189 mg/dL Very high Cholesterol in VLDL Calc [Ma ss/Vol]Ordered By: Charan Casey on 08-13-2022 Cholesterol in VLDL [Mass/Vol] 41 mg/dL [facility] Color Auto (U)Ordered By: Ab rahul Whipple on 08-13-2022 Color (U) Dark yellow Yellow [facility] Creatinine [Mass/volume] in UrineOrdered By: Elpidio Whipple on 08-13-2022 Creatinine (U) [Mass/Vol] 127.6 mg/dL [facility] Comment on above: No reference range e stablished Creatinine and Glomerular fi ltration rate.predicted panel (S/P/Bld)Ordered By: Charan Casey on 08-13-2022 Creatinine [Mass/Vol] 1.41 mg/dL 0.44-1.03 [facility] Eosinophils Auto (Bld) [#/Vo l]Ordered By: Charan Casey on 08-13-2022 Eosinophils (Bld) [#/Vol] 0.1 10*3/uL 0.0-0.45 [facility] Eosinophils/100 WBC Auto (Bl d)Ordered By: Charan Casey on 08-13-2022 Eosinophils/100 WBC (Bld) 1.7 % . [facility] Erythrocyte distribution wid th Auto (RBC) [Ratio]Ordered By: Charan Casey on 08-13-2022 Erythrocyte distribution width (RBC) [Ratio] 13.1 % 11.9-15.3 [facility] Estimated glomerular filtrat ion rate (GFR) non- AmericanOrdered By: Charan Casey on 08-13-2022 GFR/1.73 sq M.predicted among non-blacks MDRD (S/P/Bld) [Vol rate/Area] 38 mL/Min [facility] Globulin Calc (S) [Mass/Vol] Ordered By: Charan Casey on 08-13-2022 Globulin (S) [Mass/Vol] 3.1 g/dL [facility] Hematocrit Auto (Bld) [Volum e fraction]Ordered By: Charan Casey on 08-13-2022 Hematocrit (Bld) [Volume fraction] 38.0 % 34.0-46.4 [facility] Hemoglobin [Mass/volume] in BloodOrdered By: Charan Casey on 08-13-2022 Hemoglobin (Bld) [Mass/Vol] 12.6 g/dL 11.8-15.4 [facility] Ketones Auto test strip (U) [Mass/Vol]Ordered By: Elpidio Whipple on 08-13-2022 Ketones (U) [Mass/Vol] Negative Negative [facility] Laboratory - Chemistry and C hemistry - challengeOrdered By: Elpidio Whipple on 08-13-2022 Magnesium [Mass/Vol] 1.9 mg/dL 1.6-2.6 [facility] Laboratory - Hematology and Cell countsOrdered By: Charan Casey on 08-13-2022 Nucleated RBC/100 WBC (Bld) [Ratio] 0.0 % 0-0.5 [facility] Laboratory - UrinalysisOrder ed By: Elpidio Whipple on 08-13-2022 Hyaline casts LM Ql (Urine sed) 0-8 [LPF] 0-8 [facility] Leukocytes [#/volume] in Blo od by Automated countOrdered By: Charan Casey on 08-13-2022 WBC (Bld) [#/Vol] 8.2 10*3/uL 4.5-11.0 [facility] Lymphocytes Auto (Bld) [#/Vo l]Ordered By: Charan Casey on 08-13-2022 Lymphocytes (Bld) [#/Vol] 2.8 10*3/uL 1.00-4.8 [facility] Lymphocytes/100 WBC Auto (Bl d)Ordered By: Charan Casey on 08-13-2022 Lymphocytes/100 WBC (Bld) 34.1 % . [facility] MCH Auto (RBC) [Entitic mass ]Ordered By: Charan Casey on 08-13-2022 MCH (RBC) [Entitic mass] 28.5 pg 24.7-34.3 [facility] MCHC Auto (RBC) [Mass/Vol]Or dered By: Charan Casey on 08-13-2022 MCHC (RBC) [Mass/Vol] 33.2 g/dL 32.0-35.0 [facility] MCV Auto (RBC) [Entitic vol] Ordered By: Charan Casey on 08-13-2022 MCV (RBC) [Entitic vol] 85.8 fL 80-100 [facility] Monocytes Auto (Bld) [#/Vol] Ordered By: Charan Casey on 08-13-2022 Monocytes (Bld) [#/Vol] 0.5 10*3/uL 0.0-0.8 [facility] Monocytes/100 WBC Auto (Bld) Ordered By: Charan Casey on 08-13-2022 Monocytes/100 WBC (Bld) 6.4 % . [facility] Neutrophils Auto (Bld) [#/Vo l]Ordered By: Charan Casey on 08-13-2022 Neutrophils (Bld) [#/Vol] 4.7 10*3/uL 1.8-7.7 [facility] Neutrophils/100 WBC Auto (Bl d)Ordered By: Charan Casey on 08-13-2022 Neutrophils/100 WBC (Bld) 56.8 % . [facility] Nitrite Test strip Ql (U)Ord ered By: Elpidio Whipple on 08-13-2022 Nitrite Ql (U) Negative Negative [facility] No Panel InformationOrdered By: Charan Casey on 08-13-2022 25-Hydroxy Vitamin D Total 37.8 ng/mL 30-100 [facility] Comment on above: VITAMIN D STATUS 25( [place])VITAMIN D RANGE (ng/mL) Deficient <20 Insufficient 20 to <30Sufficient 30 to 100Reference: Nayeli MF,Hannah NC, Jose GILBERT, et al. Evaluation,treatment, and prevention of vitamin D deficiency; an Endocrine Society clinical practice guideline. JCEM. 2010; 96(7):1911-30. Estimated GFR () 46 mL/Min [facility] Comment on above: GFR estimated refere nce range: According to KDOQI guidelines, <60 ml/min/1.73m2 is sufficient to diagnose a patient with chronic kidney disease. Pharmacy Creatinine Clearance (Chem N/A [facility] Platelet mean volume Auto (B ld) [Entitic vol]Ordered By: Charan Casey on 08-13-2022 Platelet mean volume (Bld) [Entitic vol] 9.2 fL 6.3-10.7 [facility] Platelets Auto (Bld) [#/Vol] Ordered By: Charan Casey on 08-13-2022 Platelets (Bld) [#/Vol] 272 10*3/uL 150-450 [facility] Protein Auto test strip (U) [Mass/Vol]Ordered By: Elpidio Whipple on 08-13-2022 Protein (U) [Mass/Vol] Negative Negative [facility] Protein [Mass/volume] in Ser um or PlasmaOrdered By: Charan Casey on 08-13-2022 Protein [Mass/Vol] 7.0 g/dL 6.1-7.9 [facility] Protein [Mass/volume] in Uri neOrdered By: Elpidio Whipple on 08-13-2022 Protein (U) [Mass/Vol] 7 mg/dL 0-9 [facility] RBC Auto (Bld) [#/Vol]Ordere d By: Charan Casey on 08-13-2022 RBC (Bld) [#/Vol] 4.43 10*6/uL 3.60-5.00 [facility] Serum or plasma alanine stanton otransferase measurement without P-5'-P (enzymatic activiOrdered By: Charan Casey on 08-13-2022 ALT No additional P-5'-P [Catalytic activity/Vol] 12 U/L 1060 [facility] Serum or plasma albumin/glob ulin mass ratioOrdered By: Charan Casey on 08-13-2022 Albumin/Globulin [Mass ratio] 1.3 {ratio} [facility] Serum or plasma alkaline do sphatase measurement (enzymatic activity/volume)Ordered By: Charan Casey on 08-13-2022 ALP [Catalytic activity/Vol] 79 U/L 32-92 [facility] Serum or plasma anion gap de terminationOrdered By: Charan Casey on 08-13-2022 Anion gap [Moles/Vol] 15.4 mmol/L 6.0-15.0 [facility] Serum or plasma aspartate am inotransferase measurement (enzymatic activity/volume)Ordered By: Charan Casey on 08-13-2022 AST [Catalytic activity/Vol] 22 U/L 10-42 [facility] Serum or plasma calcium gautam urement (mass/volume)Ordered By: Charan Casey on 08-13-2022 Calcium [Mass/Vol] 10.1 mg/dL 8.2-10.2 [facility] Serum or plasma chloride malika surement (moles/volume)Ordered By: Charan Casey on 08-13-2022 Chloride [Moles/Vol] 102 mmol/L 95-114 [facility] Serum or plasma glucose gautam urement (mass/volume)Ordered By: Charan Casey on 08-13-2022 Glucose [Mass/Vol] 114 mg/dL 70-100 [facility] Comment on above: ADA recommended refe rence rangeRandom Glucose Reference Range is dependent on time and content of last meal. Glucose of more than 200 mg/dL in a nonstressed, ambulatory subject supports the diagnosis of Diabetes Mellitus. Serum or plasma high density lipoprotein (HDL) cholesterol measurementOrdered By: Charan Casey on 08-13-2022 Cholesterol in HDL [Mass/Vol] 28 mg/dL 35-85 [facility] Comment on above: HDL CHOL ATP-III CLA SSIFICATION Cardiovascular RiskHDL > or equal to 60 mg/dL LOWHDL < 40 mg/dL HIGH Serum or plasma intact parat hyroid hormone measurement (mass/volume)Ordered By: Elpidio Whipple on 08-13-2022 Parathyrin.intact [Mass/Vol] 87.0 pg/mL 12 [facility] Serum or plasma potassium me asurement (moles/volume)Ordered By: Charan Casey on 08-13-2022 Potassium [Moles/Vol] 4.9 mmol/L 3.5-5.1 [facility] Serum or plasma sodium measu rement (moles/volume)Ordered By: Charan Casey on 08-13-2022 Sodium [Moles/Vol] 138 mmol/L 136-146 [facility] Serum or plasma total biliru bin measurement (mass/volume)Ordered By: Charan Casey on 08-13-2022 Bilirubin [Mass/Vol] 0.4 mg/dL 0.3-1.2 [facility] Serum or plasma total carbon dioxide measurement (moles/volume)Ordered By: Charan Casey on 08-13-2022 CO2 [Moles/Vol] 25.5 mmol/L 22.0-30.0 [facility] Serum or plasma total choles terol/high density lipoprotein (HDL) cholesterol mass ratOrdered By: Charan Casey on 08-13-2022 Cholesterol.total/Mary sterol in HDL [Mass ratio] 6.1 {ratio} <5.0 [facility] Serum or plasma urea nitroge n measurement (mass/volume)Ordered By: Charan Casey on 08-13-2022 Urea nitrogen [Mass/Vol] 45 mg/dL 08-22 [facility] Serum or plasma uric acid me asurement (mass/volume)Ordered By: Charan Casey on 08-13-2022 Urate [Mass/Vol] 7.9 mg/dL 2.6-7.2 [facility] Specific gravity Auto test s trip (U) [Rel density]Ordered By: Elpidio Whipple on 08-13-2022 Specific gravity (U) [Rel density] 1.020 1.001-1.030 [facility] Squamous epithelial cells de tection in urine sediment by light microscopyOrdered By: Elpidio Whipple on 08-13-2022 Epithelial cells.squamous LM Ql (Urine sed) 0-1 [HPF] 0-2 [facility] TSH DL <= 0.005 mIU/L QnOrde red By: Charan Casey on 08-13-2022 TSH Qn 1.91 m[IU]/L 0.45-5.33 [facility] Triglyceride [Mass/volume] i n Serum or PlasmaOrdered By: Charan Casey on 08-13-2022 Triglyceride [Mass/Vol] 207 mg/dL 35-149 [facility] Comment on above: TRIG ATP III CLASSIF ICATIONTRIG less than 150 mg/dL NormalTRIG 150-199 mg/dL Borderline highTRIG 200-500 mg/dL High TRIG greater than 500 mg/dL Very highStandard traceable to the Center for Disease Conrtrol and Prevention (CDC) test method. Urine bacteria detection by automated methodOrdered By: Elpidio Whpiple on 08-13-2022 Bacteria Auto Ql (U) None seen None Seen [facility] Urine clarity by refractomet ry automatedOrdered By: Elpidio Whipple on 08-13-2022 Clarity Refractometry automated (U) Clear Clear [facility] Urine glucose measurement by automated test strip (mass/volume)Ordered By: Elpidio Whipple on 08-13-2022 Glucose Auto test strip (U) [Mass/Vol] Normal mg/dL Normal [facility] Urine hemoglobin detection b y automated test stripOrdered By: Elpidio Whipple on 08-13-2022 Hemoglobin Auto test strip Ql (U) Negative Negative [facility] Urine leukocyte esterase det ection by automated test stripOrdered By: Elpidio Whipple on 08-13-2022 Leukocyte esterase Auto test strip Ql (U) Negative Negative [facility] Urine protein/creatinine rat ioOrdered By: Elpidio Whipple on 08-13-2022 Protein/Creatinine (U) [Ratio] 55 mg/g{Cre} 0-200 [facility] Urobilinogen Auto test strip (U) [Mass/Vol]Ordered By: Elpidio Whipple on 08-13-2022 Urobilinogen (U) [Mass/Vol] Normal mg/dL Normal [facility] pH Auto test strip (U)Ordere d By: Elpidio Whipple on 08-13-2022 pH (U) 5.0 [pH] 5.0-9.0 [facility] Tobacco Screening.on 022 Adult depression screening assessment No [facility] [employer] 250 DO Work Phone: Fall risk assessment a) No falls within the last year [facility] [employer] DO Work Phone: Tobacco use status CPHS b) No [facility] [employer] 250 DO Work Phone: Laboratory - Chemistry and C hemistry - challengeon 03-25-2022 Cholesterol [Mass/Vol] 218\S\218 above hig h threshold 140-200 [facility] [employer] 250 DO Work Phone: Comment on above: Chol less than 200 m g/dl low risk Chol 201-239 mg/dl borderline risk Chol 240 mg/dl and greater high risk Cholesterol in LDL [Mass/Vol] 145\S\145 above high threshold 0-100 [facility] 250 DO Work Phone: Comment on above: LDL ATP III CLASSIFI CATION LDL less than 100 mg/dL Optimal LDL 100-129 mg/dL Near or above optimal LDL 130-159 mg/dL Borderline high LDL 160-189 mg/dL High LDL greater than 189 mg/dL Very high Laboratory - Microbiology an d Antimicrobial susceptibilityon 03-25-2022 SARS-CoV-2 (COVID-19) RNA AHMET+probe Ql (Unsp spec) [facility] 250 DO Work Phone: No Panel Informationon 03-25 40.2\S\40.2 Normal . [facility] 250 DO Work Phone: 9.2\S\9.2 Normal 6.3-10.7 [facility] 250 DO Work Phone: 200\S\200 Normal 150-450 [facility] 250 DO Work Phone: 13.5\S\13.5 Normal 11.9-15.3 [facility] 250 DO Work Phone: 34.0\S\34.0 Normal 32.0-35.0 [facility] 250 DO Work Phone: 29.0\S\29.0 Normal 24.7-34.3 [facility] 250 DO Work Phone: 2.0\S\2.0 Normal 1.8-7.7 [facility] 250 DO Work Phone: 0.1\S\0.1 Normal 0.0-0.45 [facility] 250 DO Work Phone: 0.6\S\0.6 Normal . [facility] 250 DO Work Phone: 2.9\S\2.9 Normal . [facility] 250 DO Work Phone: 7.1\S\7.1 Normal . [facility] 250 DO Work Phone: 49.2\S\49.2 Normal . [facility] 250 DO Work Phone: 0.0\S\0.0 Normal 0.0-0.2 [facility] 250 DO Work Phone: Comment on above: PERFORMED BY:[facility] [place], [place] [phone] MEDICAL DIRECTORJE SHELLEY M.D. 0.4\S\0.4 Normal 0.0-0.8 [facility] 250 DO Work Phone: 2.5\S\2.5 Normal 1.00-4.8 [facility] 250 DO Work Phone: 85.5\S\85.5 Normal 80-100 [facility] 250 DO Work Phone: 39.0\S\39.0 Normal 34.0-46.4 [facility] 250 DO Work Phone: 13.3\S\13.3 Normal 11.8-15.4 [facility] 250 DO Work Phone: 4.56\S\4.56 Normal 3.60-5.00 [facility] 250 DO Work Phone: 5.1\S\5.1 Normal 3.8-11.6 [facility] 250 DO Work Phone: 33.3\S\33.3 Normal 25.1-36.5 [facility] 250 DO Work Phone: Comment on above: PERFORMED BY:[facility] [place], [place] [phone] MEDICAL DIRECTORJE SHELLEY M.D. 1.0\S\1.0 Normal [facility] DO Work Phone: Comment on above: INR [...] valves: 3 - 4.5 10.9\S\10.9 Normal 9.0-12.9 [place] [address] DO Work Phone: 26.6\S\26.6 Normal 22.0-30.0 [place] [address] DO Work Phone: 104\S\104 Normal 95-114 [place] [address] DO Work Phone: 4.0\S\4.0 Normal 3.5-5.1 [place] [address] DO Work Phone: 140\S\140 Normal 136-146 [facility] 250 DO Work Phone: 18\S\18 Normal 9-23 [facility] DO Work Phone: 54\S\54 Normal [facility] 250 DO Work Phone: Comment on above: GFR estimated refere nce range: According to KDOQI guidelines, <60 ml/min/1.73m2 is sufficient to diagnose a patient with chronic kidney disease. 45\S\45 Normal [facility] Work Phone: 1.22\S\1.22 above high threshold 0.44-1.03 [facility] 250 DO Work Phone: 6.4\S\6.4 Normal <5.0 [facility] 250 DO Work Phone: Comment on above: PERFORMED BY:[facility] [place], [place] [phone] MEDICAL DIRECTORJE SHELLEY M.D. 39\S\39 Normal [facility] 250 DO Work Phone: 197\S\197 above high threshold 35-149 [facility] 250 DO Work Phone: Comment on above: TRIG ATP III CLASSIF ICATION TRIG less than 150 mg/dL Normal TRIG 150-199 mg/dL Borderline high TRIG 200-500 mg/dL High TRIG greater than 500 mg/dL Very high Standard traceable to the Center for Disease Conrtrol and Prevention (CDC) test method. 34\S\34 below low threshold 35-85 [facility] 250 DO Work Phone: Comment on above: HDL CHOL ATP-III CLA SSIFICATION Cardiovascular Risk HDL > or equal to 60 mg/dL LOW HDL < 40 mg/dL HIGH Negative Normal Negative [place] [address] DO Work Phone: Comment on above: This is a duplicate [place] SARS Antigen (PRISCILA) result to be used for statistical tracking purpose only.PERFORMED BY:[facility] [place], [place] [phone] MEDICAL DIRECTORJE SHELLEY M.D. CT Angio Coronary Arteries w ith Heart Flowon 03-11-2022 CT Angio Coronary Arteries with Heart Flow Normal [place] [address] DO Work Phone: CTA CORONARY ART WITH [...] R07.9: Chest pain. COMPARISON: None. ACCESSION NUMBER(S): [id number] ORDERING CLINICIAN: ROSALINDA TORRES TECHNIQUE: Using multi-detector [...] VALVE: The (more content not included)... Normal [facility] Tobacco Screening.on 022 Adult depression screening assessment No [facility] [employer] 250 DO Work Phone: Fall risk assessment a) No falls within the last year [facility] [employer] 250 DO Work Phone: Tobacco use status CPHS b) No [facility] 250 DO Work Phone: SURGICAL PATHOLOGYon SURGICAL PATHOLOGY Specimen #: [id number] Physician: REUBEN CRAVEN M.D. FINAL DIAGNOSIS1. 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 Skin, left upper arm, shave biopsy ([id number]; 07/20/2018) - Intradermal nevus, neurotized (see comment).AF/CE/dss [...] for MART-1 and S100 [facility]. These stains [...] consultation. Please call theDermatopathology Consultation Service at [phone] with questions or ifadditional follow-up information becomes available regarding this patient.This case was reviewed in conjunction with the Dermatopathology Fellow, Dr.Carly Marija MD.Donald Zavaleta M.D. PhD(Electronic Signature) SPECIME N SUBMITTEDA: 11 SLIDES ([id number]) CLINICAL DATANone provided. of Report: 07/26/2018Date of Procedure: 07/23/2018Date of Receipt: 07/23/2018Submitted by: REUBEN CRAVEN M.D.Location: [id number] interpretation performed at [facility], [address] [place] [address]. Normal [facility] Comment on above: Performed By: #### S ####See report for performing lab information. Vital Signs Date Time Vital Sign Value Performing Clinician Facility 07-27-2025 08:13-0400 Body height 167.6 cm Shaina Petznick DO Work Phone: [facility] 07-27-2025 08:13-0400 Body temperature 97.5 [degF] Shaina Petznick DO Work Phone: [facility] 07-27-2025 08:13-0400 Diastolic blood pressure 62 mm[Hg] Shaina Petznick DO Work Phone: [facility] 07-27-2025 08:13-0400 Heart rate 65 /min Shaina Petznick DO Work Phone: [facility] 07-27-2025 08:13-0400 SaO2% (BldA) [Mass fraction] 98 % Shaina Petznick DO Work Phone: [facility] 07-27-2025 08:13-0400 Systolic blood pressure 122 mm[Hg] Shaina Petznick DO Work Phone: [facility] 07-12-2025 08:20-0400 Body temperature 97.8 [degF] Charan Casey DO Work Phone: [facility] 07-12-2025 08:20-0400 Diastolic blood pressure 60 mm[Hg] Charan Casey DO Work Phone: [facility] 07-12-2025 08:20-0400 Heart rate 70 /min Charan Masseys DO Work Phone: [facility] 07-12-2025 08:20-0400 Respiratory rate 16 /min Charan Masseys DO Work Phone: [facility] 07-12-2025 08:20-0400 SaO2% (BldA) [Mass fraction] 97 % Charan Casey DO Work Phone: [facility] 07-12-2025 08:20-0400 Systolic blood pressure 116 mm[Hg] Charan Masseys DO Work Phone: [facility] 05-15-2025 10:29-0400 Body height 167.6 cm Shaina Petznick DO Work Phone: [facility] 05-15-2025 10:29-0400 Body mass index (BMI) [Ratio] 35.86 kg/m2 Shaina Petznick DO Work Phone: [facility] 05-15-2025 10:29-0400 Body temperature 97.2 [degF] Shaina Petznick DO Work Phone: [facility] 05-15-2025 10:29-0400 Body weight 100.79 kg Shaina Petznick DO Work Phone: [facility] 05-15-2025 10:29-0400 Diastolic blood pressure 76 mm[Hg] Shaina Petznick DO Work Phone: [facility] 05-15-2025 10:29-0400 Heart rate 67 /min Shaina Petznick DO Work Phone: [facility] 05-15-2025 10:29-0400 SaO2% (BldA) [Mass fraction] 98 % Shaina Petznick DO Work Phone: [facility] 05-15-2025 10:29-0400 Systolic blood pressure 110 mm[Hg] Shaina Petznick DO Work Phone: [facility] 03-06-2025 08:09-0400 Body height 170.18 cm Charan Masseys DO Work Phone: [facility] 03-06-2025 08:09-0400 Body mass index (BMI) [Ratio] 35.4 kg/m2 Charan Masseys DO Work Phone: [facility] 03-06-2025 08:09-0400 Body weight 102.51 kg Charan Masseys DO Work Phone: [facility] 03-06-2025 08:09-0400 Respiratory rate 16 /min Charan Masseys DO Work Phone: [facility] 03-06-2025 08:09-0400 SaO2% (BldA) [Mass fraction] 98 % Charan Masseys DO Work Phone: [facility] 02-16-2025 09:35-0400 Body height 170.18 cm Charan Masseys DO Work Phone: [facility] 02-16-2025 09:35-0400 Body mass index (BMI) [Ratio] 36.5 kg/m2 Charan Masseys DO Work Phone: [facility] 02-16-2025 09:35-0400 Body weight 105.68 kg Charan Masseys DO Work Phone: [facility] 01-09-2025 10:01-0500 Body height 170.18 cm Charan Masseys DO Work Phone: [facility] 01-09-2025 10:01-0500 Body mass index (BMI) [Ratio] 36.5 kg/m2 Charan Masseys DO Work Phone: [facility] 01-09-2025 10:01-0500 Body weight 105.68 kg Charan Masseys DO Work Phone: [facility] 01-09-2025 10:01-0500 Diastolic blood pressure 84 mm[Hg] Charanheather Masseys DO Work Phone: [facility] 01-09-2025 10:01-0500 Heart rate 69 /min Charan Masseys DO Work Phone: [facility] 01-09-2025 10:01-0500 Respiratory rate 16 /min Charan Masseys DO Work Phone: [facility] 01-09-2025 10:01-0500 SaO2% (BldA) [Mass fraction] 98 % Charan Masseys DO Work Phone: [facility] 01-09-2025 10:01-0500 Systolic blood pressure 124 mm[Hg] Charan Masseys DO Work Phone: [facility] 12-09-2024 10:39-0500 Body height 170.18 cm Charan Masseys DO Work Phone: [facility] 12-09-2024 10:39-0500 Body mass index (BMI) [Ratio] 36.1 kg/m2 Charan Masseys DO Work Phone: [facility] 12-09-2024 10:39-0500 Body temperature 98.4 [degF] Charan Masseys DO Work Phone: [facility] 12-09-2024 10:39-0500 Body weight 104.77 kg Charan Masseys DO Work Phone: [facility] 12-09-2024 10:39-0500 Diastolic blood pressure 66 mm[Hg] Charan Masseys DO Work Phone: [facility] 12-09-2024 10:39-0500 Heart rate 78 /min Charan Brysons DO Work Phone: [facility] 12-09-2024 10:39-0500 Respiratory rate 16 /min Charan Masseys DO Work Phone: [facility] 12-09-2024 10:39-0500 SaO2% (BldA) [Mass fraction] 97 % Charan Brysons DO Work Phone: [facility] 12-09-2024 10:39-0500 Systolic blood pressure 130 mm[Hg] Charan Masseys DO Work Phone: [facility] 2024 09:30-0500 Diastolic blood pressure 83 mm[Hg] Charan Masseys DO Work Phone: [facility] 2024 09:30-0500 Heart rate 65 /min Charan Masseys DO Work Phone: [facility] 2024 09:30-0500 Respiratory rate 16 /min Charan Masseys DO Work Phone: [facility] 2024 09:30-0500 SaO2% (BldA) [Mass fraction] 99 % Charan Masseys DO Work Phone: [facility] 2024 09:30-0500 Systolic blood pressure 164 mm[Hg] Charan Masseys DO Work Phone: [facility] 2024 08:48-0500 Inhaled oxygen flow rate 3 L/min Charan Masseys DO Work Phone: [facility] 2024 07:38-0500 Body height 170.18 cm Charan Masseys DO Work Phone: [facility] 2024 07:38-0500 Body weight 108.86 kg Chaarn Masseys DO Work Phone: [facility] 10-19-2024 08:13-0500 Body weight 109.88 kg Charan Masseys DO Work Phone: [facility] 10-17-2024 13:12-0500 Body height 167.6 cm Shaina Petfelipeick DO Work Phone: [facility] 10-17-2024 13:12-0500 Body mass index (BMI) [Ratio] 39.06 kg/m2 Shaina Petznick DO Work Phone: [facility] 10-17-2024 13:12-0500 Body temperature 97.3 [degF] Shaina Petznick DO Work Phone: [facility] 10-17-2024 13:12-0500 Body weight 109.77 kg Shaina Petznick DO Work Phone: [facility] 10-17-2024 13:12-0500 Diastolic blood pressure 68 mm[Hg] Shaina Petznick DO Work Phone: [facility] 10-17-2024 13:12-0500 Heart rate 78 /min Shaina Petznick DO Work Phone: [facility] 10-17-2024 13:12-0500 SaO2% (BldA) [Mass fraction] 96 % Shaina Petznick DO Work Phone: [facility] 10-17-2024 13:12-0500 Systolic blood pressure 128 mm[Hg] Shaina Petznick DO Work Phone: [facility] 09-20-2024 10:28-0400 Diastolic blood pressure 76 mm[Hg] DO Charan Masseys Work Phone: [facility] 09-20-2024 10:28-0400 Heart rate 68 /min DO Charan Masseys Work Phone: [facility] 09-20-2024 10:28-0400 Respiratory rate 16 /min DO Charan Masseys Work Phone: [facility] 09-20-2024 10:28-0400 SaO2% (BldA) [Mass fraction] 95 % DO Charan Brysons Work Phone: [facility] 09-20-2024 10:28-0400 Systolic blood pressure 157 mm[Hg] DO Charan Kuns Work Phone: [facility] 09-20-2024 09:50-0400 Inhaled oxygen flow rate 3 L/min DO Charan Brysons Work Phone: [facility] 09-20-2024 08:38-0400 Body height 170.18 cm DO Charan Casey Work Phone: [facility] 09-20-2024 08:38-0400 Body weight 107.95 kg DO Charanheather Casey Work Phone: [facility] 08-25-2024 08:35-0400 Body height 170.2 cm Rosalinda Torres MD Work Phone: [facility] 08-25-2024 08:35-0400 Body mass index (BMI) [Ratio] 37.75 kg/m2 Rosalinda Torres MD Work Phone: [facility] 08-25-2024 08:35-0400 Body weight 109.32 kg Rosalinda Torres MD Work Phone: [facility] 08-25-2024 08:35-0400 Diastolic blood pressure 80 mm[Hg] Rosalinda Torres MD Work Phone: [facility] 08-25-2024 08:35-0400 Heart rate 80 /min Rosalinda Torres MD Work Phone: [facility] 08-25-2024 08:35-0400 Systolic blood pressure 130 mm[Hg] Rosalinda Torres MD Work Phone: [facility] 06-08-2024 15:44-0400 Body height 170.18 cm DO Charan Casey Work Phone: [facility] 06-08-2024 15:44-0400 Body mass index (BMI) [Ratio] 37 kg/m2 DO Charan Casey Work Phone: [facility] 06-08-2024 15:44-0400 Body weight 107.5 kg DO Charan Casey Work Phone: [facility] 06-08-2024 15:44-0400 Diastolic blood pressure 76 mm[Hg] DO Charan Casey Work Phone: [facility] 06-08-2024 15:44-0400 Heart rate 95 /min DO Charan Brysons Work Phone: [facility] 06-08-2024 15:44-0400 SaO2% (BldA) [Mass fraction] 96 % DO Charan Brysons Work Phone: [facility] 06-08-2024 15:44-0400 Systolic blood pressure 151 mm[Hg] DO Charan Kuns Work Phone: [facility] 05-31-2024 11:30-0400 Diastolic blood pressure 78 mm[Hg] DO Charan Kuns Work Phone: [facility] 05-31-2024 11:30-0400 Heart rate 68 /min DO Charan Brysons Work Phone: [facility] 05-31-2024 11:30-0400 Respiratory rate 16 /min DO Charan Masseys Work Phone: [facility] 05-31-2024 11:30-0400 SaO2% (BldA) [Mass fraction] 98 % DO Charanheather Masseys Work Phone: [facility] 05-31-2024 11:30-0400 Systolic blood pressure 152 mm[Hg] DO Charanheather Masseys Work Phone: [facility] 05-31-2024 10:53-0400 Inhaled oxygen flow rate 3 L/min DO Charanheather Masseys Work Phone: [facility] 05-31-2024 10:09-0400 Body height 170.18 cm DO Charan Brysons Work Phone: [facility] 05-31-2024 10:09-0400 Body weight 108.86 kg DO Charan Kuns Work Phone: [facility] 03-01-2024 09:31-0400 Body height 170.18 cm DO Charan Kuns Work Phone: [facility] 03-01-2024 09:31-0400 Body mass index (BMI) [Ratio] 37.4 kg/m2 DO Charan Casey Work Phone: [facility] 03-01-2024 09:31-0400 Body temperature 96.8 [degF] DO Charanheather Casey Work Phone: [facility] 03-01-2024 09:31-0400 Body weight 108.4 kg DO Charanheather Casey Work Phone: [facility] 03-01-2024 09:31-0400 Diastolic blood pressure 83 mm[Hg] DO Charan Casey Work Phone: [facility] 03-01-2024 09:31-0400 Heart rate 88 /min DO Charan Casey Work Phone: [facility] 03-01-2024 09:31-0400 Respiratory rate 16 /min DO Charan Casey Work Phone: [facility] 03-01-2024 09:31-0400 SaO2% (BldA) [Mass fraction] 98 % DO Charan Casey Work Phone: [facility] 03-01-2024 09:31-0400 Systolic blood pressure 146 mm[Hg] DO Charan Casey Work Phone: [facility] 02-22-2024 14:26-0400 Body height 170.2 cm Rosalinda Torres MD Work Phone: [facility] 02-22-2024 14:26-0400 Body mass index (BMI) [Ratio] 37.12 kg/m2 Rosalinda Torres MD Work Phone: [facility] 02-22-2024 14:26-0400 Body weight 107.5 kg Rosalinda Torres MD Work Phone: [facility] 02-22-2024 14:26-0400 Diastolic blood pressure 60 mm[Hg] Rosalinda Torres MD Work Phone: [facility] 02-22-2024 14:26-0400 Heart rate 84 /min Rosalinda Torres MD Work Phone: [facility] 02-22-2024 14:26-0400 Systolic blood pressure 130 mm[Hg] Rosalinda Torres MD Work Phone: [facility] 12-30-2023 13:00-0500 Body height 170.18 cm Charan Casey Other [facility] 12-30-2023 13:00-0500 Body mass index (BMI) [Ratio] 37.59 kg/m2 Charan Casey Other [employer] Other 12-30-2023 13:00-0500 Body temperature 98.3 [degF] Charan Casey Other [employer] Other 12-30-2023 13:00-0500 Body weight 108.86 kg Charan Casey Other [facility] 12-30-2023 13:00-0500 Diastolic blood pressure 80 mm[Hg] Charan Casey Other [facility] 12-30-2023 13:00-0500 Respiratory rate 18 /min Charan Casey Other [employer] Other 12-30-2023 13:00-0500 SaO2% (BldA) [Mass fraction] 96 % Charan Casey Other [employer] Other 12-30-2023 13:00-0500 Systolic blood pressure 150 mm[Hg] Charan Casey Other [facility] 10-21-2023 12:45-0500 Body height 170.18 cm Blas Bellamy Other [employer] Other 10-21-2023 12:45-0500 Body mass index (BMI) [Ratio] 37.43 kg/m2 Blas Bellamy Other [employer] Other 10-21-2023 12:45-0500 Body temperature 97.6 [degF] Blas Bellamy Other [employer] Other 10-21-2023 12:45-0500 Body weight 108.41 kg Blas Bellamy Other [employer] Other 10-21-2023 12:45-0500 Diastolic blood pressure 90 mm[Hg] Blas Bellamy Other [employer] Other 10-21-2023 12:45-0500 Respiratory rate 18 /min Blas Bellamy Other [employer] Other 10-21-2023 12:45-0500 SaO2% (BldA) [Mass fraction] 96 % Blas Bellamy Other [employer] Other 10-21-2023 12:45-0500 Systolic blood pressure 143 mm[Hg] Blas Bellamy Other [employer] Other 10-06-2023 09:04-0500 Diastolic blood pressure 74 mm[Hg] DO Charan Masseys Work Phone: [facility] 10-06-2023 09:04-0500 Heart rate 76 /min DO Charan Brysons Work Phone: [facility] 10-06-2023 09:04-0500 Respiratory rate 16 /min DO Charan Kuns Work Phone: [facility] 10-06-2023 09:04-0500 SaO2% (BldA) [Mass fraction] 96 % DO Charan Brysons Work Phone: [facility] 10-06-2023 09:04-0500 Systolic blood pressure 159 mm[Hg] DO Charan Casey Work Phone: [facility] 10-06-2023 07:01-0500 Body height 170.18 cm DO Charan Casey Work Phone: [facility] 10-06-2023 07:01-0500 Body weight 106.59 kg DO Charan Casey Work Phone: [facility] 09-15-2023 10:20-0400 Body height 170.18 cm Elpidio Sole Other [employer] Other 09-15-2023 10:20-0400 Body mass index (BMI) [Ratio] 37.46 kg/m2 Elpidio Sole Other [employer] Other 09-15-2023 10:20-0400 Body temperature 97.2 [degF] Elpidio Sole Other [employer] Other 09-15-2023 10:20-0400 Body weight 108.5 kg Elpidio Sole Other [employer] Other 09-15-2023 10:20-0400 Diastolic blood pressure 80 mm[Hg] Elpidio Sole Other [employer] Other 09-15-2023 10:20-0400 Respiratory rate 18 /min Elpidio Sole Other [employer] Other 09-15-2023 10:20-0400 SaO2% (BldA) [Mass fraction] 99 % Elpidio Sole Other [employer] Other 09-15-2023 10:20-0400 Systolic blood pressure 140 mm[Hg] Elpidiorohan Zarater Other [facility] [employer] Other 09-08-2023 09:00-0400 Diastolic blood pressure 88 mm[Hg] DO Charan Casey Work Phone: [facility] 09-08-2023 09:00-0400 Heart rate 69 /min DO Charan [employer] Work Phone: [facility] 09-08-2023 09:00-0400 Respiratory rate 16 /min DO Charan Casey Work Phone: [facility] 09-08-2023 09:00-0400 SaO2% (BldA) [Mass fraction] 96 % DO Charan Casey Work Phone: [facility] 09-08-2023 09:00-0400 Systolic blood pressure 146 mm[Hg] DO Charan Casey Work Phone: [facility] 09-08-2023 08:17-0400 Inhaled oxygen flow rate 3 L/min DO Charan Casey Work Phone: [facility] 09-08-2023 07:21-0400 Body height 170.18 cm DO Charan Casey Work Phone: [facility] 09-08-2023 07:21-0400 Body weight 108.86 kg DO Charan Casey Work Phone: [facility] 08-17-2023 09:30-0400 Body height 170.18 cm Blas Ortiz Other [employer] Other 08-17-2023 09:30-0400 Body mass index (BMI) [Ratio] 38.06 kg/m2 Blas Ortiz Other [employer] Other 08-17-2023 09:30-0400 Body weight 110.22 kg Blas Ortiz Other [employer] Other 08-11-2023 09:20-0400 Body height 170.18 cm Thierno Shena Other [employer] Other 08-11-2023 09:20-0400 Body mass index (BMI) [Ratio] 38.06 kg/m2 Thierno Chatterjee Other [employer] Other 08-11-2023 09:20-0400 Body weight 110.22 kg Thierno Chatterjee Other [employer] Other 08-11-2023 09:20-0400 Diastolic blood pressure 90 mm[Hg] Thierno Chatterjee Other [employer] Other 08-11-2023 09:20-0400 Systolic blood pressure 152 mm[Hg] Thierno Chatterjee Other [employer] Other 08-05-2023 08:15-0400 Body height 170.18 cm Charan Casey Other [employer] Other 08-05-2023 08:15-0400 Body mass index (BMI) [Ratio] 38.21 kg/m2 Charan Casey Other [employer] Other 08-05-2023 08:15-0400 Body weight 110.68 kg Charan Casey Other [employer] Other 08-05-2023 08:15-0400 Diastolic blood pressure 60 mm[Hg] Charan Casey Other [employer] Other 08-05-2023 08:15-0400 Respiratory rate 18 /min Charan Casey Other [employer] Other 08-05-2023 08:15-0400 SaO2% (BldA) [Mass fraction] 95 % Charan Casey Other [employer] Other 08-05-2023 08:15-0400 Systolic blood pressure 126 mm[Hg] Charan Casey Other [employer] Other 05-19-2023 12:30-0400 Body height 170.18 cm Charan Casey Other [employer] Other 05-19-2023 12:30-0400 Diastolic blood pressure 74 mm[Hg] Charan Casey Other [employer] Other 05-19-2023 12:30-0400 Respiratory rate 18 /min Charan Casey Other [employer] Other 05-19-2023 12:30-0400 SaO2% (BldA) [Mass fraction] 97 % Charan Casey Other [employer] Other 05-19-2023 12:30-0400 Systolic blood pressure 140 mm[Hg] Charan Casey Other [employer] Other 04-30-2023 10:17-0400 Body height 170.18 cm Charan Casey Work Phone: [employer] [address] DO Work Phone: 04-30-2023 10:17-0400 Body mass index (BMI) [Ratio] Medical Reason Not Done Charan Casey Work Phone: [facility] [facility] [employer] [facility] 250 DO Work Phone: 04-30-2023 10:17-0400 Diastolic blood pressure 64 mm[Hg] Charan Casey Work Phone: [facility] [employer] 250 DO Work Phone: 04-30-2023 10:17-0400 Heart rate 72 /min Charan Casey Work Phone: [facility] [employer] 250 DO Work Phone: 04-30-2023 10:17-0400 Systolic blood pressure 128 mm[Hg] Charan Casey Work Phone: [facility] [employer] 250 DO Work Phone: 03-31-2023 15:30-0400 Body height 170.18 cm Charan Casey Other [employer] Other 03-31-2023 15:30-0400 Diastolic blood pressure 64 mm[Hg] Charan Casey Other [employer] Other 03-31-2023 15:30-0400 Respiratory rate 18 /min Charan Casey Other [employer] Other 03-31-2023 15:30-0400 SaO2% (BldA) [Mass fraction] 98 % Charan Casey Other [employer] Other 03-31-2023 15:30-0400 Systolic blood pressure 126 mm[Hg] Charan Casey Other [employer] Other 03-10-2023 15:40-0400 Body height 170.18 cm Elpidio Sole Other [employer] Other 03-10-2023 15:40-0400 Diastolic blood pressure 86 mm[Hg] Elpidio Sole Other [employer] Other 03-10-2023 15:40-0400 Respiratory rate 16 /min Elpidio Sole Other [employer] Other 03-10-2023 15:40-0400 SaO2% (BldA) [Mass fraction] 99 % Elpidio Sole Other [employer] Other 03-10-2023 15:40-0400 Systolic blood pressure 135 mm[Hg] Elpidio Sole Other [employer] Other 03-04-2023 15:00-0400 Body height 170.18 cm Williamer Coco Other [employer] Other 03-04-2023 15:00-0400 Body mass index (BMI) [Ratio] 37.43 kg/m2 Williamer Coco Other [employer] Other 03-04-2023 15:00-0400 Body weight 108.41 kg Christbryoner Coco Other [employer] Other 03-04-2023 15:00-0400 Diastolic blood pressure 83 mm[Hg] Williamer Coco Other [employer] Other 03-04-2023 15:00-0400 SaO2% (BldA) [Mass fraction] 98 % Christbryoner Coco Other [employer] Other 03-04-2023 15:00-0400 Systolic blood pressure 157 mm[Hg] Kumaropher Coco Other [employer] Other 09-24-2022 16:00-0400 Body height 170.18 cm Elpidio Sole Other [employer] Other 09-24-2022 16:00-0400 Body mass index (BMI) [Ratio] 37.37 kg/m2 Elpidio Sole Other [employer] Other 09-24-2022 16:00-0400 Body temperature 96.4 [degF] Elpidio Sole Other [employer] Other 09-24-2022 16:00-0400 Body weight 108.23 kg Elpidio Sole Other [employer] Other 09-24-2022 16:00-0400 Diastolic blood pressure 64 mm[Hg] Elpidio Sole Other [employer] Other 09-24-2022 16:00-0400 Respiratory rate 16 /min Elpidio Sole Other [employer] Other 09-24-2022 16:00-0400 SaO2% (BldA) [Mass fraction] 98 % Elpidio Sole Other [employer] Other 09-24-2022 16:00-0400 Systolic blood pressure 120 mm[Hg] Elpidio Sole Other [employer] Other 09-02-2022 14:00-0400 Body height 170.18 cm Charan Casey Other [employer] Other 09-02-2022 14:00-0400 Body mass index (BMI) [Ratio] 37.9 kg/m2 Charan Casey Other [employer] Other 09-02-2022 14:00-0400 Body weight 109.77 kg Charan Casey Other [employer] Other 09-02-2022 14:00-0400 Diastolic blood pressure 70 mm[Hg] Charan Casey Other [employer] Other 09-02-2022 14:00-0400 Respiratory rate 16 /min Charan Casey Other [employer] Other 09-02-2022 14:00-0400 SaO2% (BldA) [Mass fraction] 97 % Charan Casey Other [employer] Other 09-02-2022 14:00-0400 Systolic blood pressure 112 mm[Hg] Charan Casey Other [employer] Other 07-27-2022 19:56-0400 Body height 170.18 cm DO Charan Masseys Work Phone: [facility] 07-27-2022 19:56-0400 Body temperature 99.1 [degF] DO Charan Masseys Work Phone: [facility] 07-27-2022 19:56-0400 Body weight 110.55 kg DO Charna Kuns Work Phone: [facility] 07-27-2022 19:56-0400 Diastolic blood pressure 81 mm[Hg] DO Charan Kuns Work Phone: [facility] 07-27-2022 19:56-0400 Heart rate 89 /min DO Charan Kuns Work Phone: [facility] 07-27-2022 19:56-0400 Respiratory rate 20 /min DO Charan Brysons Work Phone: [facility] 07-27-2022 19:56-0400 SaO2% (BldA) [Mass fraction] 98 % DO Charan Casey Work Phone: [facility] 07-27-2022 19:56-0400 Systolic blood pressure 142 mm[Hg] DO Charanheather Casye Work Phone: [facility] 05-08-2022 08:51-0400 Body height 170.18 cm Charan Louise Jacinto Work Phone: [facility] [employer] 250 DO Work Phone: 05-08-2022 08:51-0400 Body mass index (BMI) [Ratio] 38.06 kg/m2 Charan Dani Casey Work Phone: [facility] [employer] 250 DO Work Phone: 05-08-2022 08:51-0400 Body surface area Derived from formula 2.2 m2 Charan Dani Casey Work Phone: [facility] 250 DO Work Phone: 05-08-2022 08:51-0400 Body weight 110.22 kg Charan Dani Casey Work Phone: [facility] 250 DO Work Phone: 05-08-2022 08:51-0400 Diastolic blood pressure 70 mm[Hg] Charan Louise Jacinto Work Phone: [facility] 250 DO Work Phone: 05-08-2022 08:51-0400 Heart rate 72 /min Charan Masseybryn Work Phone: [facility] 250 DO Work Phone: 05-08-2022 08:51-0400 Systolic blood pressure 136 mm[Hg] Charan Casey Work Phone: [facility] 250 DO Work Phone: 04-30-2022 17:00-0400 Body height 170.18 cm Federico Sepulveda Other [employer] Other 04-30-2022 17:00-0400 Body mass index (BMI) [Ratio] 38.52 kg/m2 Federico Hanno Other [employer] Other 04-30-2022 17:00-0400 Body temperature 97.1 [degF] Kumarbryonerika Coco Other [employer] Other 04-30-2022 17:00-0400 Body weight 111.59 kg Williamerika BucknerCoco Other [employer] Other 04-30-2022 17:00-0400 Diastolic blood pressure 86 mm[Hg] Federico Hanno Other [employer] Other 04-30-2022 17:00-0400 SaO2% (BldA) [Mass fraction] 97 % Federico Hanno Other [employer] Other 04-30-2022 17:00-0400 Systolic blood pressure 148 mm[Hg] Federico Bucknerdano Other [employer] Other 04-14-2022 11:30-0400 Body height 170.18 cm Charan Casey Other [employer] Other 04-14-2022 11:30-0400 Body mass index (BMI) [Ratio] 38.52 kg/m2 Charan Casey Other [employer] Other 04-14-2022 11:30-0400 Body weight 111.59 kg Charan Casey Other [employer] Other 04-14-2022 11:30-0400 Diastolic blood pressure 70 mm[Hg] Charan Casey Other [employer] Other 04-14-2022 11:30-0400 Respiratory rate 16 /min Charan Casey Other [employer] Other 04-14-2022 11:30-0400 SaO2% (BldA) [Mass fraction] 99 % Charan Casey Other [employer] Other 04-14-2022 11:30-0400 Systolic blood pressure 126 mm[Hg] Charan Casey Other [employer] Other 02-20-2022 17:00-0400 Body mass index (BMI) [Ratio] 38.56 kg/m2 Elpidio Sole Other [employer] Other 02-20-2022 17:00-0400 Body temperature 97.2 [degF] Elpidio Sole Other [employer] Other 02-20-2022 17:00-0400 Body weight 111.68 kg Elpidio Sole Other [employer] Other 02-20-2022 17:00-0400 Diastolic blood pressure 79 mm[Hg] Elpidio Sole Other [employer] Other 02-20-2022 17:00-0400 Respiratory rate 18 /min Elpidio Sole Other [employer] Other 02-20-2022 17:00-0400 SaO2% (BldA) [Mass fraction] 98 % Elpidio Sole Other [facility] [employer] Other 02-20-2022 17:00-0400 Systolic blood pressure 134 mm[Hg] Elpidio Sole Other [facility] [employer] Other 02-20-2022 12:28-0400 Body height 170.18 cm Charan Casey Work Phone: [facility] 250 DO Work Phone: 02-20-2022 12:28-0400 Body mass index (BMI) [Ratio] 38.37 kg/m2 Charan Casey Work Phone: [facility] 250 DO Work Phone: 02-20-2022 12:28-0400 Body surface area Derived from formula 2.2 m2 Charan Casey Work Phone: [facility] 250 DO Work Phone: 02-20-2022 12:28-0400 Body weight 111.13 kg Charan Casey Work Phone: [facility] 250 DO Work Phone: 02-20-2022 12:28-0400 Diastolic blood pressure 71 mm[Hg] Charan Casey Work Phone: [facility] 250 DO Work Phone: 02-20-2022 12:28-0400 Heart rate 72 /min Charan Casey Work Phone: [facility] 250 DO Work Phone: 02-20-2022 12:28-0400 Systolic blood pressure 131 mm[Hg] Charan Casey Work Phone: [facility] [facility] [facility] DO Work Phone: 02-07-2022 09:45-0500 Body height 170.18 cm Charan Casey Other [facility] [employer] Other 02-07-2022 09:45-0500 Body mass index (BMI) [Ratio] 38.27 kg/m2 Charan Casey Other [facility] [employer] Other 02-07-2022 09:45-0500 Body weight 110.86 kg Charan Casey Other [facility] [employer] Other 02-07-2022 09:45-0500 Diastolic blood pressure 82 mm[Hg] Charan Casey Other [facility] [employer] Other 02-07-2022 09:45-0500 Respiratory rate 18 /min Charan Casey Other [facility] [employer] Other 02-07-2022 09:45-0500 SaO2% (BldA) [Mass fraction] 95 % Charan Casey Other [facility] [employer] Other 02-07-2022 09:45-0500 Systolic blood pressure 148 mm[Hg] Charan Casey Other [facility] [employer] Other 12-31-2021 17:20-0500 Body height 170.18 cm Thierno Chatterjee Other [facility] [employer] Other 12-31-2021 17:20-0500 Body mass index (BMI) [Ratio] 38.84 kg/m2 Thierno Chatterjee Other [employer] Other 12-31-2021 17:20-0500 Body weight 112.49 kg Thierno Chatterjee Other [employer] Other 12-03-2021 15:00-0500 Body height 170.18 cm Charan Casey Other [employer] Other 10-01-2021 17:15-0400 Body height 170.18 cm Blas Maurererika Other [facility] [employer] Other Encounters Encounter Date Encounter Type Care Provider Facility Start: 07-27-2025 End: 07-27-2025 Bamboo flowsheet Shaina Munroe DO Work Phone: [facility] 230 Start: 07-27-2025 End: 07-27-2025 BamKARALITo flowsheet Shaina Munroe DO Work Phone: [facility] 230 Start: 07-27-2025 End: 07-27-2025 Office outpatient visit 25 minutes Shaina Munroe DO Work Phone: [facility] 230 Comment on above: Type 2 diabetes [...] 07-12-2025 ambulatory Charan Casey DO Work Phone: [facility] Work Phone: Start: 07-12-2025 End: 07-12-2025 Patient encounter procedure Charan Louise DO -[facility] Work Phone: Start: 06-30-2025 Non-patient / Non-visit Karla Lyons MD -[facility] Work Phone: Start: 06-29-2025 Non-patient / Non-visit Karla Lyons MD -[facility] Work Phone: Start: 06-28-2025 Non-patient / Non-visit Gustavo Mason BASSETT -[facility] Work Phone: Start: 06-21-2025 End: 06-21-2025 ambulatory Charan Casey DO Work Phone: [facility] Work Phone: Start: 06-21-2025 End: 06-21-2025 Patient encounter procedure Blas Louise [facility] -[facility] Work Phone: Start: 06-14-2025 Non-patient / Non-visit Blas Louise MD -[facility] Work Phone: Start: 06-14-2025 End: 06-14-2025 ambulatory Chaarn Casey DO Work Phone: [facility] Work Phone: Start: 06-14-2025 End: 06-14-2025 Patient encounter procedure Blas Louise MD [facility] Work Phone: Start: 06-05-2025 End: 06-05-2025 Patient encounter procedure Acosta Castro DPM [place] -X-Ray [facility] Start: 06-05-2025 End: 06-05-2025 ambulatory Charan Jacinto DO Work Phone: [facility] Work Phone: Start: 05-31-2025 End: 05-31-2025 ambulatory Charan Masseys DO Work Phone: [facility] Work Phone: Start: 05-31-2025 End: 05-31-2025 Patient encounter procedure Blas Louise MD -[facility] Work Phone: Start: 05-15-2025 End: 05-15-2025 Office outpatient visit 25 minutes Shaina M Ludwig DO Work Phone: [facility] 230 Comment on above: Type 2 [...] (BMI) of 35.0 to 35.9 in adult ([facility]) Start: 05-15-2025 End: 05-15-2025 ambulatory SHAINA NELSONALFREDO Not Available Start: 03-06-2025 End: 03-06-2025 ambulatory Charan Casey DO Work Phone: [facility] Work Phone: Start: 03-06-2025 End: 03-06-2025 Patient encounter procedure Charan Casey DO Work Phone: [facility] Work Phone: Start: 02-16-2025 End: 02-16-2025 ambulatory Charan Casey DO Work Phone: [facility] Work Phone: Start: 02-16-2025 End: 02-16-2025 Patient encounter procedure Charan Casey DO Work Phone: [facility] Physician [facility] Work Phone: Start: 02-14-2025 End: 02-14-2025 ambulatory SHAINA M LUDWIG Not Available Start: 02-01-2025 Non-patient / Non-visit Charan Casey DO Work Phone: [facility] Physician [facility] Work Phone: Start: 02-01-2025 End: 02-01-2025 ambulatory Charan Kuns DO Work Phone: [facility] Work Phone: Start: 02-01-2025 End: 02-01-2025 Patient encounter procedure Charan Casey DO Work Phone: [facility] Work Phone: Start: 01-31-2025 End: 01-31-2025 ambulatory Charan Casey DO Work Phone: [facility] Work Phone: Start: 01-31-2025 End: 01-31-2025 Discharged Recurring Charan Casey DO Work Phone: [facility]-Physical Therapy [place] Start: 01-31-2025 Registered Recurring Charan clemente DO Work Phone: [facility] Therapy [place] Start: 01-26-2025 End: 01-26-2025 ambulatory Charan Casey DO Work Phone: [facility] Work Phone: Start: 01-26-2025 End: 01-26-2025 Patient encounter procedure Charan Casey DO Work Phone: [facility] Physician [facility] Orthoped[facility] Work Phone: Start: 01-26-2025 Registered Recurring Charan clemente DO Work Phone: [facility]-Physical Therapy [place] Start: 01-23-2025 End: 01-23-2025 Patient encounter procedure Charan Casey DO Work Phone: [facility]-MRI [address] Closed Work Phone: Start: 01-23-2025 End: 01-23-2025 ambulatory Charanheather Casey DO Work Phone: [facility] Work Phone: Start: 01-18-2025 End: 01-18-2025 ambulatory Charan Casey DO Work Phone: [facility] Work Phone: Start: 01-18-2025 End: 01-18-2025 Patient encounter procedure Charan Casey DO Work Phone: [facility] Physician [facility] Pain Mgmt [facility] Work Phone: Start: 01-13-2025 Registered Recurring Charan Massey s DO Work Phone: [facility]-Physical Therapy [place] Start: 01-09-2025 End: 01-09-2025 Telephone encounter Shaina Munroe DO Work Phone: [facility] 230 Start: 01-09-2025 Non-patient / Non-visit Charan Casey DO Work Phone: [facility] Physician [facility] Work Phone: Start: 01-09-2025 End: 01-09-2025 ambulatory Charan Casey DO Work Phone: [facility] Work Phone: Start: 01-09-2025 End: 01-09-2025 Patient encounter procedure Charan Casey DO Work Phone: [facility] Physician [facility] Work Phone: Start: 01-03-2025 Registered Recurring Charan clemenet DO Work Phone: [facility]-Physical Therapy [place] Start: 12-29-2024 End: 12-29-2024 ambulatory Charan Casey DO Work Phone: [facility] Work Phone: Start: 12-29-2024 End: 12-29-2024 Patient encounter procedure Charan Casey DO Work Phone: [facility] Physician [facility] Orth[facility] Work Phone: Start: 12-26-2024 End: 12-26-2024 ambulatory Charan Casey DO Work Phone: [facility] Work Phone: Start: 12-26-2024 End: 12-26-2024 Patient encounter procedure Charan Casey DO Work Phone: [facility] Physician [facility] Pain [facility] Work Phone: Start: 12-26-2024 Registered Recurring Charan clemente DO Work Phone: [facility]-Physical Therapy [place] Start: 12-09-2024 End: 12-09-2024 ambulatory Charan Casey DO Work Phone: [facility] Work Phone: Start: 12-09-2024 End: 12-09-2024 Patient encounter procedure Charan Casey DO Work Phone: [facility] Physician [facility] Work Phone: Start: 12-08-2024 End: 12-08-2024 Patient encounter procedure Charan Casey DO Work Phone: [facility]-X-Ray [facility] Start: 12-08-2024 End: 12-08-2024 ambulatory Charan Casey DO Work Phone: [facility] Work Phone: Start: 11-15-2024 Registered Recurring Charan clemente DO Work Phone: [facility]-Physical Therapy [place] Start: 2024 Non-patient / Non-visit Charanheather Casey DO Work Phone: [facility] Physician [facility] Pain [facility] Work Phone: Start: 2024 End: 2024 Admission to same day surgery center Charan Casey DO Work Phone: [facility]-Digestive Health Work Phone: Start: 2024 End: 2024 ambulatory Blas Ortiz Facility:[facility] Start: 10-25-2024 End: 10-25-2024 Patient encounter procedure Charan Casey DO Work Phone: [facility] Work Phone: Start: 10-25-2024 End: 10-25-2024 ambulatory Nader Davis Antoinette Facility:[facility] Start: 10-19-2024 End: 10-19-2024 ambulatory Charan Casey DO Work Phone: [facility] Work Phone: Start: 10-19-2024 End: 10-19-2024 Patient encounter procedure Charan Casey DO Work Phone: [facility] Work Phone: Start: 10-17-2024 End: 10-17-2024 Office outpatient visit 25 minutes Shaina Munroe DO Work Phone: [facility] 230 Comment on above: Type 2 [...] / Non-visit DO Yeison Casey Work Phone: [facility] Work Phone: Start: 09-20-2024 End: 09-20-2024 Admission to same day surgery center DO Charan Casey Work Phone: [facility]-Dig[facility]ive Health Work Phone: Start: 09-20-2024 End: 09-20-2024 ambulatory DO Charan Casey Work Phone: [facility] Work Phone: Start: 09-12-2024 Non-patient / Non-visit DO Yeison Casey Work Phone: [facility] [place] Work Phone: Start: 09-12-2024 End: 09-12-2024 ambulatory DO Charan Casey Work Phone: [facility] Work Phone: Start: 09-12-2024 End: 09-12-2024 Patient encounter procedure DO Charan Casey Work Phone: [facility] Work Phone: Start: 09-07-2024 End: 09-07-2024 Patient encounter procedure DO Charan Casey Work Phone: [facility] Work Phone: Start: 09-07-2024 End: 09-07-2024 ambulatory DO Charan Casey Work Phone: [facility] Work Phone: Start: 09-02-2024 End: 09-02-2024 ambulatory Charan Casey Facility:[facility] Start: 09-02-2024 Registered Recurring DO Charan Casey Work Phone: [facility]-Physical Therapy [place] Start: 08-25-2024 End: 08-25-2024 Office outpatient visit 25 minutes Rosalinda Torres MD Work Phone: [facility] Comment on above: Coronary artery dise ase, unspecified vessel or lesion type, unspecified whether angina present, unspecified whether [place] or transplanted heart; Elevated coronary artery calcium [...] 06-13-2024 ambulatory DO Charan Casey Work Phone: [facility] Work Phone: Start: 06-13-2024 End: 06-13-2024 Patient encounter procedure DO Charan Casey Work Phone: [facility] Work Phone: Start: 06-08-2024 End: 06-08-2024 ambulatory DO Charan Casey Work Phone: [facility] Work Phone: Start: 06-08-2024 End: 06-08-2024 Patient encounter procedure DO Charan Casey Work Phone: [facility] Work Phone: Start: 05-31-2024 Non-patient / Non-visit DO Yeison heather Casey Work Phone: [facility] Pain Management [facility] Work Phone: Start: 05-31-2024 End: 05-31-2024 Admission to same day surgery center DO Charan Casey Work Phone: [facility] Work Phone: Start: 05-31-2024 End: 05-31-2024 ambulatory DO Charan Casey Work Phone: [facility] Work Phone: Start: 05-23-2024 End: 05-23-2024 ambulatory DO Charan Casey Work Phone: [facility] Work Phone: Start: 05-23-2024 End: 05-23-2024 Patient encounter procedure DO Charan Casey Work Phone: [facility] Physician [facility] Pain Management [facility] Work Phone: Start: 05-13-2024 Non-patient / Non-visit DO Yeison Casey Work Phone: [facility] Physician [facility] Family Medicine [place] Work Phone: Start: 04-19-2024 Non-patient / Non-visit DO Yeison Casey Work Phone: [facility] Physician [facility] Family Medicine [place] Work Phone: Start: 03-18-2024 Non-patient / Non-visit DO Yeison Casey Work Phone: [facility] Physician [facility] Professional [facility] Work Phone: Start: 03-17-2024 End: 03-17-2024 ambulatory DO Charanheather Casey Work Phone: [facility] Work Phone: Start: 03-17-2024 End: 03-17-2024 Patient encounter procedure DO Charan Casey Work Phone: [facility] Physician [facility] Pain Management [facility] Work Phone: Start: 03-05-2024 End: 03-05-2024 ambulatory DO Charanheather Casey Work Phone: [facility] Work Phone: Start: 03-05-2024 End: 03-05-2024 Patient encounter procedure DO Charan Casey Work Phone: [facility]-MRI [address] [place] Work Phone: Start: 03-01-2024 End: 03-01-2024 ambulatory DO Charanheather Masseys Work Phone: [facility] Work Phone: Start: 03-01-2024 End: 03-01-2024 Patient encounter procedure DO Charanheather Masseys Work Phone: [facility] Work Phone: Start: 02-29-2024 End: 02-29-2024 ambulatory DO Charan Casey Work Phone: [facility] C[facility] Work Phone: Start: 02-29-2024 End: 02-29-2024 Patient encounter procedure DO Charan Casey Work Phone: [facility] C[facility]-Lab [facility] Start: 02-23-2024 Non-patient / Non-visit DO Yeison heather Jacinto Work Phone: [facility] Work Phone: Start: 02-22-2024 End: 02-22-2024 ambulatory ROSALINDA Morales [facility] Amb[facility] Start: 02-22-2024 End: 02-22-2024 Office outpatient visit 25 minutes Rosalinda Torres MD Work Phone: [facility] Comment on above: Coronary artery dise ase, unspecified vessel or lesion type, unspecified whether angina present, unspecified whether [place] or transplanted heart (Primary Dx); Essential hypertension; 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; Hyperlipidemia, unspecified hyperlipidemia type; Obstructive sleep apnea syndrome; Class 2 obesity with body mass index (BMI) of 37.0 to 37.9 in adult, unspecified obesity type, unspecified whether serious comorbidity present; Insulin-requiring or dependent type II diabetes mellitus ([facility] Start: 02-17-2024 Non-patient / Non-visit DO Yeison Casey Work Phone: [facility] Physician [facility] Work Phone: Start: 02-12-2024 Non-patient / Non-visit DO Yeison heather Jacinto Work Phone: [facility] Physician [facility] Work Phone: Start: 02-04-2024 End: 02-04-2024 Patient encounter procedure DO Charan Casey Work Phone: [facility] Pain Management [facility] Work Phone: Start: 01-11-2024 End: 01-11-2024 ambulatory Charan Masseybryn Other [employer] Other Start: 01-11-2024 Telephone encounter Charan Masseys [facility] Start: 12-31-2023 End: 12-31-2023 ambulatory Charan Masseys Other [employer] Other Start: 12-31-2023 Telephone encounter Charan Casey [facility] Start: 12-30-2023 End: 12-30-2023 Patient encounter procedure DO Charan Masseybryn Work Phone: [facility] Start: 12-30-2023 End: 12-30-2023 ambulatory DO Charan Brysonbryn Work Phone: [facility] Work Phone: Start: 12-30-2023 Office outpatient vi sit 15 minutes [facility]an [facility] Start: 12-30-2023 End: 12-30-2023 Patient encounter procedure DO Charanheather Casey Work Phone: [facility]- Start: 11-26-2023 End: 11-26-2023 ambulatory DO Charanheather Casey Work Phone: [facility] Work Phone: Start: 11-26-2023 End: 11-26-2023 Patient encounter procedure DO Charan Casey Work Phone: [facility]-Lab [facility] Start: 11-06-2023 End: 11-06-2023 ambulatory Charan Masseys Other [facility] [employer] Other Start: 11-06-2023 Telephone encounter Charan Casey [facility] [employer] Start: 11-05-2023 Diabetic care education Renée Watts [facility] Start: 11-05-2023 Encounter by computer link Renée Watts [facility] Start: 11-05-2023 End: 11-05-2023 ambulatory DO Charan Casey Work Phone: [employer] Other Start: 11-05-2023 End: 11-05-2023 Discharged Recurring DO Charan Casey Work Phone: [facility] Work Phone: Start: 11-05-2023 Registered Recurring DO Charan Casey Work Phone: [facility] Work Phone: Start: 11-03-2023 End: 11-03-2023 ambulatory Charan Casey Other [employer] Other Start: 11-03-2023 Telephone encounter Charan Casey [facility] [place] Start: 10-28-2023 End: 10-28-2023 ambulatory Blas Ortiz Other [employer] Other Start: 10-28-2023 Office outpatient vi sit 15 minutes Blas Ortiz [facility] [place] Start: 10-28-2023 Telephone encounter Blas Ortiz [facility] [place] Start: 10-28-2023 End: 10-28-2023 Patient encounter procedure DO Charan Jacinto Work Phone: [facility] Work Phone: Start: 10-21-2023 End: 10-21-2023 ambulatory Blas Grantley Other [employer] Other Start: 10-21-2023 Office outpatient vi sit 15 minutes Blas Bellamy [facility] [address] Start: 10-21-2023 End: 10-21-2023 Patient encounter procedure DO Charan Casey Work Phone: [facility] [place] Work Phone: Start: 10-19-2023 End: 10-19-2023 ambulatory Blas Erastoerika Other [employer] Other Start: 10-19-2023 Telephone encounter Blas Ortiz [facility] [place] Start: 10-07-2023 End: 10-07-2023 ambulatory Charan Casey Other [employer] Other Start: 10-07-2023 Telephone encounter Charan Casey [facility] [place] Start: 10-06-2023 End: 10-06-2023 Admission to same day surgery center DO Charan Casey Work Phone: [facility] Work Phone: Start: 10-06-2023 End: 10-06-2023 ambulatory DO Charan Casey Work Phone: [facility] Work Phone: Start: 09-23-2023 End: 09-23-2023 ambulatory Blas Ortiz Other [employer] Other Start: 09-23-2023 Office outpatient vi sit 15 minutes Blas Ortiz [facility] [place] Start: 09-15-2023 End: 09-15-2023 ambulatory Elpidio Sole Other [employer] Other Start: 09-15-2023 Office outpatient vi sit 25 minutes Elpidio Sole [facility] Start: 09-14-2023 End: 09-14-2023 ambulatory DO Charan Casey Work Phone: [facility] Work Phone: Start: 09-14-2023 End: 09-14-2023 Patient encounter procedure DO Charan Casey Work Phone: [facility]-Lab [facility] Start: 09-08-2023 (Procedure) Short Blas Ortiz [facility] Medical Out[facility] Start: 09-08-2023 End: 09-08-2023 Admission to same day surgery center DO Charan Casey Work Phone: [facility]-Digestive Health Work Phone: Start: 09-08-2023 End: 09-08-2023 ambulatory DO Charan Casey Work Phone: [facility] Work Phone: Start: 08-25-2023 End: 08-25-2023 ambulatory Imad Asaad Other [employer] Other Start: 08-25-2023 Telephone encounter Yasmeen Treadwell [facility] [employer] Start: 08-18-2023 End: 08-18-2023 ambulatory Charan Casey Other [employer] Other Start: 08-18-2023 Telephone encounter Charan Casey [facility] Family Medicine [place] Start: 08-17-2023 End: 08-17-2023 ambulatory Blas Ortiz Other [employer] Other Start: 08-17-2023 Office outpatient vi sit 25 minutes Blas Ortiz [facility] Pain Management [place] Start: 08-17-2023 End: 08-17-2023 Patient encounter procedure DO Charan Casey Work Phone: [facility]-XRay [place] [facility] Start: 08-11-2023 Office outpatient vi sit 15 minutes Thierno Chatterjee [facility] Start: 08-11-2023 End: 08-11-2023 ambulatory DO Charan Casey Work Phone: [facility] Work Phone: Start: 08-11-2023 End: 08-11-2023 Patient encounter procedure DO Charan Casey Work Phone: [facility] Start: 08-05-2023 End: 08-05-2023 ambulatory Charan Casey Other [employer] Other Start: 08-05-2023 Office outpatient vi sit 25 minutes Charan Casey [facility] Start: 07-02-2023 End: 07-02-2023 ambulatory Charan Casey Other [employer] Other Start: 07-02-2023 Telephone encounter Charan Casey [facility] Start: 06-08-2023 End: 06-08-2023 ambulatory DO Charan Casey Work Phone: [facility] Work Phone: Start: 06-08-2023 End: 06-08-2023 Discharged Recurring DO Charan Casey Work Phone: [facility]-Physical Therapy [facility] Start: 05-28-2023 End: 05-28-2023 ambulatory Renée Watts Other [employer] Other Start: 05-28-2023 Diabetic care education Renée Watts [facility] Start: 05-28-2023 Registered Recurring DO Charan Casey Work Phone: [facility] Work Phone: Start: 05-19-2023 Office outpatient vi sit 25 minutes Charan Casey [facility] Start: 05-19-2023 End: 05-19-2023 ambulatory DO Charan Casey Work Phone: [facility] Work Phone: Start: 05-19-2023 End: 05-19-2023 Patient encounter procedure DO Charan Casey Work Phone: [facility] Start: 05-05-2023 End: 05-05-2023 ambulatory Charan Casey Other [employer] Other Start: 05-05-2023 Telephone encounter Charan Casey [facility] Start: 04-30-2023 Office outpatient vi sit 25 minutes Charan Casey Work Phone: [facility] 250 DO Work Phone: Start: 04-30-[address] Charan Casey Facility: Start: 04-13-2023 End: 04-13-2023 ambulatory ACOSTA CASTRO Facility:H1 Start: 04-07-2023 End: 04-08-2023 ambulatory BLANKA OLGUIN Facility:H1 Start: 04-06-2023 Encounter for preprocedural laboratory examination ACOSTA CASTRO [facility] Start: 04-06-2023 End: 04-06-2023 ambulatory Charan Casey Other [employer] Other Start: 04-06-2023 Telephone encounter Charan Casey [facility] Start: 03-31-2023 Office outpatient vi sit 25 minutes Charan Casey [facility] Start: 03-31-2023 End: 04-01-2023 ambulatory ACOSTA [facility] 3225 films Other Start: 03-31-2023 End: 04-01-2023 Encounter for preprocedural laboratory examination ACOSTA HERNANDEZMISAEL Facility:H1 Start: 03-26-2023 End: 03-26-2023 ambulatory Charan Casey Other [employer] Other Start: 03-26-2023 Telephone encounter Charan Casey [facility] Start: 03-23-2023 End: 03-24-2023 ambulatory BLANKA OLGUIN Facility:H1 Start: 03-10-2023 End: 03-10-2023 ambulatory Elpidio Sole Other [employer] Other Start: 03-10-2023 Office outpatient vi sit 25 minutes Elpidio Sole [facility] Start: 03-06-2023 End: 03-06-2023 ambulatory DO Charan Casey Work Phone: [facility] Work Phone: Start: 03-06-2023 End: 03-06-2023 Patient encounter procedure DO Charan Casey Work Phone: [facility]-Lab [facility] Start: 03-04-2023 Office outpatient vi sit 15 minutes eFderico Sepulveda [facility] Start: 03-04-2023 Telephone encounter Charan Casye [facility] Start: 03-04-2023 End: 03-04-2023 ambulatory DO Charan Brysonbryn Work Phone: [employer] Other Start: 03-04-2023 End: 03-04-2023 Patient encounter procedure DO Charan Casey Work Phone: [facility] Work Phone: Start: 03-03-2023 End: 03-04-2023 ambulatory BLANKA OLGUIN Facility:H1 Start: 02-17-2023 End: 02-18-2023 ambulatory BRODERICK FLOR Facility:H1 Start: 02-16-2023 End: 02-16-2023 ambulatory Charan Casey Other [employer] Other Start: 02-16-2023 Telephone encounter Charan Casey [facility] Start: 02-05-2023 End: 02-05-2023 ambulatory Charan Jacinto Other [employer] Other Start: 02-05-2023 Telephone encounter Charan Jacinto [facility] Family [facility] Start: 02-03-2023 End: 02-04-2023 ambulatory BRODERICK FLOR Facility:H1 Start: 01-27-2023 End: 01-27-2023 Patient encounter procedure DO Charan Casey Work Phone: [facility] Work Phone: Start: 01-27-2023 End: 01-27-2023 ambulatory DO Charan Casey Work Phone: [facility] Work Phone: Start: 01-27-2023 Immune Injection one Vaccine (Admin Chg) Renée Watts [facility] Start: 01-20-2023 End: 01-21-2023 ambulatory BLANKA OLGUIN Facility:H1 Start: 01-19-2023 End: 01-19-2023 ambulatory Charan Casey Other [facility] 3225 films Other Start: 01-19-2023 Telephone encounter Charan Casey [facility] Start: 12-29-2022 End: 12-31-2022 ambulatory BLANKA OLGUIN Facility:H1 Start: 12-25-2022 Encounter for preprocedural cardiovascular examination [facility] Start: 12-25-2022 Encounter for preprocedural laboratory examination [facility] Start: 12-23-2022 End: 12-24-2022 ambulatory [facility] Facility:H1 Start: 12-23-2022 End: 12-24-2022 Encounter for preprocedural cardiovascular examination [facility] Facility:H1 Start: 11-26-2022 End: 11-27-2022 ambulatory BRODERICK FLOR Facility:H1 Start: 11-12-2022 End: 11-13-2022 ambulatory BLANKA OLGUIN Facility:H1 Start: 11-12-[address] Charan Casey Facility: Start: 10-28-2022 (FCCC INJ) [facility] Injection Eliud Napoleon manuela [facility] Start: 10-28-2022 End: 10-28-2022 ambulatory DO Charan Casey Work Phone: [facility] Work Phone: Start: 10-28-2022 End: 10-28-2022 Patient encounter procedure DO Charan Casey Work Phone: [facility] Start: 10-16-2022 ([facility] C Vac) [facility] Co vid Vaccine Renée Watts [facility] Start: 10-16-2022 ([facility] INJ) [facility] Injection Renée Mac [facility] Start: 10-16-2022 Telephone encounter Elpidio Sole [facility] Nephrology Start: 10-16-2022 End: 10-16-2022 ambulatory DO Charan Casey Work Phone: [employer] Other Start: 10-16-2022 End: 10-16-2022 Patient encounter procedure DO Charan Casey Work Phone: [facility] Start: 10-15-2022 End: 10-15-2022 ambulatory DO Charan Casey Work Phone: [facility] Work Phone: Start: 10-15-2022 End: 10-15-2022 Patient encounter procedure DO Charan Casey Work Phone: [facility] C[facility]-MRI [address] Start: 10-13-2022 End: 10-13-2022 ambulatory DO Charan Casey Work Phone: [facility] Work Phone: Start: 10-13-2022 End: 10-13-2022 Patient encounter procedure DO Charanheather Masseybryn Work Phone: [facility]-MRI [address] Start: 09-24-2022 End: 09-24-2022 ambulatory Elpidio Sole Other [employer] Other Start: 09-24-2022 Office outpatient vi sit 25 minutes Elpidio Sole [facility] Ne[facility] [place] Start: 09-02-2022 End: 09-02-2022 ambulatory Charan Casey Other [employer] Other Start: 09-02-2022 Office outpatient vi sit 25 minutes Charan Casey [facility] Start: 08-13-2022 End: 08-13-2022 Patient encounter procedure DO Charan Casey Work Phone: [facility] Start: 08-07-2022 End: 08-07-2022 ambulatory Charan Casey Other [employer] Other Start: 08-07-2022 Telephone encounter [facility] Start: 07-27-2022 End: 07-27-2022 Emergency department patient visit DO Charan Casey Work Phone: [facility]-Emergency Room Start: 07-16-2022 End: 07-16-2022 ambulatory Charan Casey Other [facility] 3225 films Other Start: 07-16-2022 Telephone encounter Charan Casey [facility] Start: 07-02-2022 End: 07-02-2022 ambulatory Charan Casey Other [facility] 3225 films Other Start: 07-02-2022 Telephone encounter Charan Casey [facility] Start: 05-08-2022 Office outpatient vi sit 25 minutes Charan Casey Work Phone: [place] [address] DO Work Phone: Start: 04-30-2022 End: 04-30-2022 ambulatory Federico Sepulveda Other [facility] 3225 films Other Start: 04-30-2022 Office outpatient vi sit 10 minutes Federico Sepulveda [facility] Start: 04-14-2022 End: 04-14-2022 ambulatory Charan Casey Other [employer] Other Start: 04-14-2022 Office outpatient vi sit 25 minutes Charan Casey [facility] Start: 04-07-2022 End: 04-07-2022 ambulatory Charanheather Casey Other [employer] Other Start: 04-07-2022 Telephone encounter Charan Casey [facility] Start: 04-02-2022 End: 04-02-2022 ambulatory Charanheather Casey Other [employer] Other Start: 04-02-2022 Telephone encounter Charan Casey [facility] Start: 03-31-2022 End: 03-31-2022 ambulatory Charanheather Casey Other [employer] Other Start: 03-31-2022 Telephone encounter Charan Casey [facility] Start: 03-27-[address] [facility], Provider: Rosalinda Torres, Status: Pen, Time: 1:00 PM Charan Casey Work Phone: [facility] 250 DO Work Phone: Start: 03-26-2022 Chart Update Charanheather Casey Work Phone: [facility]-[place] 250 DO Work Phone: Start: 03-13-2022 End: 03-13-2022 ambulatory Charanheather Casey Other [facility] 3225 films Other Start: 03-13-2022 Telephone encounter Charanheather Casey [facility] Start: 03-12-2022 Chart Update Charan Louise Jacinto Work Phone: [facility] 250 DO Work Phone: Start: 03-07-2022 End: 03-07-2022 ambulatory Renée Watts Other [employer] Other Start: 03-07-2022 Telephone encounter Renée Watts [facility] Start: 03-04-2022 End: 03-04-2022 ambulatory Charan Casey Other [employer] Other Start: 03-04-2022 Telephone encounter Charan Casey [facility] Start: 02-20-2022 End: 02-20-2022 ambulatory Elpidio Sole Other [employer] Other Start: 02-20-2022 Office outpatient vi sit 25 minutes Elpidio Sole [facility] Start: 02-10-2022 End: 02-10-2022 ambulatory Charan Casey Other [employer] Other Start: 02-10-2022 Telephone encounter Charan Casey [facility] Start: 02-07-2022 End: 02-07-2022 ambulatory Charan Casey Other [employer] Other Start: 02-07-2022 Office outpatient vi sit 25 minutes Charan Casey [facility] Start: 02-05-2022 End: 02-05-2022 ambulatory Charan Casey Other [employer] Other Start: 02-05-2022 Telephone encounter Charan Casey [facility] Start: 01-21-2022 End: 01-21-2022 ambulatory Charan Casey Other [employer] Other Start: 01-21-2022 Telephone encounter Charan Casey [facility] Start: 12-31-2021 End: 12-31-2021 ambulatory Thierno Chatterjee Other [employer] Other Start: 12-31-2021 Office outpatient vi sit 15 minutes Thierno Chatterjee [facility] Start: 12-07-2021 End: 12-07-2021 ambulatory Charan Casey Other [employer] Other Start: 12-07-2021 Telephone encounter Charan Jacinto [facility] Start: 12-06-2021 End: 12-06-2021 ambulatory Charan Masseybryn Other [employer] Other Start: 12-06-2021 Telephone encounter Charan Casey [facility] Start: 12-03-2021 End: 12-03-2021 ambulatory Charan Casey Other [employer] Other Start: 12-03-2021 Office outpatient vi sit 15 minutes Charan Casey [facility] Start: 10-01-2021 End: 10-01-2021 ambulatory Blas Ortiz Other [employer] Other Start: 10-01-2021 Office outpatient vi sit 25 minutes Blas Ortiz [facility] [place] End: 02-20-2022 Patient encounter status Charan Dani Jacinto Work Phone: [facility] 250 DO Work Phone: Procedures Date Procedure [...] Screening for malign ant neoplasm of colon [facility] Start: 2025 Pneumococcal Vaccine : Pediatrics (0 to 5 Years) and At-Risk Patients (6 to 64 Years) (3 - PPSV23 or PCV20) Pneumococcal Vaccine: Pediatrics (0 to 5 Years) and At-Risk Patients (6 to 64 Years) (3 - PPSV23 or PCV20) [facility] Start: 2025 Pneumococcal Vaccine : Pediatrics (0 to 5 Years) and At-Risk Patients (6 to 64 Years) (3 of 3 - PPSV23 or PCV20) Pneumococcal Vaccine: Pediatrics (0 to 5 Years) and At-Risk Patients (6 to 64 Years) (3 of 3 - PPSV23 or PCV20) [facility] Start: 10-24-2025 End: 10-24-2025 Patient encounter procedure 10/24/2025 10:30 AM EST Office Visit [facility] [address] [place] [address] Shaina Munroe DO [address] [place] [address] [facility] 230 Start: 09-05-2025 Glaucoma screening Diabetes: R etinopathy Screening [facility] Start: 08-15-2025 End: 08-15-2025 Patient encounter procedure [facility] 230 Start: 07-31-2025 Influenza vaccination [facility] Start: 07-27-2025 End: 07-27-2025 Patient encounter procedure 07/27/2025 8:15 AM EDT Office Visit [facility] [place] [facility] [address] [place] [address] Shaina Munroe, DO [address] [place] [address] Arrived [facility] 230 Comment on above: Arrived Start: 03-28-2025 End: 03-28-2025 Patient encounter procedure 03/28/2025 8:50 AM EDT Office Visit [facility] [address] [place] [address] Rosalinda Torres MD [address] [place] [address] [facility] Start: 02-14-2025 End: 02-14-2025 Patient encounter procedure 02/14/2025 9:30 AM EDT Office Visit [facility] [address] [place] [address] Shaina Munroe, DO [address] [place] [address] [facility] 230 Start: 01-23-2025 MR Shoulder - right WO contrast [facility] Start: 01-23-2025 MRI of right shoulder MR shoulder RT wo con [facility] Start: 01-17-2025 Hemoglobin A1c measurement Diabetes: Hemoglobin A1C [facility] Start: 2024 [facility] Start: 09-20-2024 [facility] Start: 08-25-2024 End: 08-25-2024 Patient encounter procedure 08/25/2024 8:40 AM EDT Office Visit [facility] [address] [place] [address] Rosalinda Torres MD [address] [place] [address] [facility] Start: 07-31-2024 COVID-19 Vaccine ( season) COVID-19 Vaccine ( season) [facility] Start: 07-31-2024 Influenza vaccination Influenza Vacc ine (#1) [facility] Start: 05-31-2024 [facility] Start: 02-29-2024 Bacteria identified in Urine by Culture [facility] Start: 02-29-2024 Urine culture Urine Culture [facility] Start: 11-10-2023 [facility], Provider: Rosalinda Torres, Status: Pen, Time: 9:10 AM [facility], Provider: Rosalinda Torres, Status: Pen, Time: 9:10 AM [facility] [employer] 250 DO Work Phone: Start: 10-06-2023 [facility] Start: 09-08-2023 [facility] Start: 07-31-2023 COVID-19 Vaccine ( season) COVID-19 Vaccine ( season) [facility] Start: 07-31-2023 Influenza vaccination Influenza Vacc ine (#1) [facility] Start: 03-06-2023 Bacteria identified in Urine by Culture [facility] Start: 11-12-2022 [facility], Provider: Rosalinda Torres, Status: Pen, Time: 9:00 AM [facility], Provider: Rosalinda Torres, Status: Pen, Time: 9:00 AM [facility] [employer] 250 DO Work Phone: Start: 09-08-2022 DTaP/Tdap/Td Vaccine s (2 - Td or Tdap) DTaP/Tdap/Td Vaccines (2 - Td or Tdap) [facility] Start: 03-27-2022 [facility], Provider: Rosalinda Torres, Status: Pen, Time: 1:00 PM [facility], Provider: Rosalinda Torres, Status: Pen, Time: 1:00 PM [facility] [employer] 250 DO Work Phone: Start: 03-14-2022 [facility], Provider: Rosalinda Torres, Status: Pen, Time: 1:50 PM [facility], Provider: Rosalinda Torres, Status: Pen, Time: 1:50 PM -[facility] 250 DO Work Phone: Start: 2020 RSV patient s and/or patients aged 60+ years (1 - 1-dose 60+ series) RSV patients and/or patients aged 60+ years (1 - 1-dose 60+ series) [facility] Start: 2000 Screening for malign ant neoplasm of breast Mammogram [facility] Start: 1990 Screening for malign ant neoplasm of cervix [facility] Start: 1982 DTaP/Tdap/Td Vaccine s (1 - Tdap) DTaP/Tdap/Td Vaccines (1 - Tdap) [facility] Start: 1981 Screening for malign ant neoplasm of cervix [facility] Start: 1979 Urine screening for protein Diabetes: Urine Protein Screening [facility] Start: 1978 Hepatitis C screening Hepatitis C Sc reening [facility] Start: 1970 Diabetic foot examination Diabetes: Foot Exam [facility] Start: 1970 Glaucoma screening Diabetes: R etinopathy Screening [facility] Start: 1961 MMR Vaccines (1 of 1 - Standard series) MMR Vaccines (1 of 1 - Standard series) [facility] Start: 1960 Hemoglobin A1c measurement Diabetes: Hemoglobin A1C [facility] Start: 1960 HIV screening HIV Screening [facility] Start: 1960 Lipid panel Lipid Panel [facility] Start: 1960 Medicare Annual Well ness (AWV) Medicare Annual Wellness (AWV) [facility] Start: 1960 Medicare Annual Well ness Visit Medicare Annual Wellness Visit (AWV) [facility] Start: 1960 Screening for malign ant neoplasm of colon [facility] Start: 1960 Yearly Adult Physical Yearly Adult P hysical [facility] Comprehensive metabo lic 2000 panel - Serum or Plasma [facility] MR Lumbar spine WO a nd W contrast IV [facility] MR Shoulder - right WO contrast [facility] Patient Education [facility] Work Phone: Patient referral [facility] Work Phone: Renal function 1999 panel - Serum or Plasma [facility] Rheumatoid factor [Units/volume] in Serum or Plasma [facility] Immunizations Immunization Date Immunization Notes Care Provider Fa cility 01-27-2023 zoster vaccine recombinant Renée Fitt Other [facility] 10-28-2022 zoster vaccine recombinant Eliud LePoire Other [facility] 10-16-2022 influenza virus vaccine, unspecified formulation DO Charan Casey Work Phone: [facility] 10-16-2022 influenza, seasonal, injectable Rosalinda oTrres MD Work Phone: [facility] Work Phone: 10-16-2022 Moderna SARS-CoV-2 Vaccination Rosalinda Torres MD Work Phone: [facility] Work Phone: 10-16-2022 COVID-19 Moderna (BIvalent) Renée Fitt Other [facility] 10-16-2022 influenza, high dose seasonal, preservative-free Renée Fitt Other [employer] [facility] 3225 films Other 10-16-2022 influenza, injectabl e, quadrivalent, preservative free Renée Fitt Other [employer] [facility] 3225 films Other 09-26-2021 Moderna COVID-19 Vaccine 100 MCG/0.5ML Intramuscular Suspension Charan Casey Work Phone: [facility] 09-25-2021 Moderna SARS-CoV-2 Booster Vaccination Shaina Munroe DO Work Phone: [facility] 08-30-2021 seasonal influenza, intradermal, preservative free Charan Louise [facility]sonbryn [facility] Work Phone: 12-25-2020 COVID-19 Vaccine Moderna - Documentation Purposes Only Blas Ortiz Other [facility] 11-28-2020 Moderna COVID-19 Vaccine 100 MCG/0.5ML Intramuscular Suspension Charan Casey Work Phone: [facility] 08-30-2019 influenza virus vaccine, unspecified formulation Charan Dani Brysonbryn Work Phone: [facility] [employer] DO Work Phone: 08-30-2019 influenza, injectabl e, quadrivalent, preservative free Shaina Munroe DO Work Phone: [facility] 08-30-2019 influenza, seasonal, injectable Blas Erastoerika Other [facility] 08-30-2018 influenza, seasonal, injectable Blas Erastoerika Other [facility] 08-30-2018 influenza, seasonal, injectable, preservative free Shaina Munroe DO Work Phone: [facility] 12-02-2016 influenza virus vaccine, unspecified formulation DO Charan Masseybryn Work Phone: [facility] 12-02-2016 influenza, seasonal, injectable, preservative free Charanheather Casey Work Phone: [facility] 250 DO Work Phone: 12-02-2016 pneumococcal conjuga te vaccine, 13 valent Blas Ortiz Other [facility] 12-02-2016 influenza, high dose seasonal, preservative-free Blas Ortiz Other [facility] 3225 films Other 12-02-2016 influenza, injectabl e, quadrivalent, preservative free Renée Watts Other [employer] Other 11-30-2016 pneumococcal polysaccharide vaccine, 23 valent Charan Casey [facility] [employer] [facility] Work Phone: 10-15-2016 pneumococcal polysaccharide vaccine, 23 valent Charan Casey Work Phone: [facility] 09-08-2012 influenza virus vaccine, unspecified formulation DO Charan Casey Work Phone: [facility] 09-08-2012 tetanus toxoid, reduced diphtheria toxoid, and acellular pertussis vaccine, adsorbed Blas Ortiz Other [facility] 09-08-2012 influenza virus vaccine, split virus (incl. purified surface antigen) Blas Ortiz Other [employer] Other influenza virus vaccine, unspecified formulation [facility] Work Phone: Comment on above: 2009 NEGATED: Highlighted row has not occurred!09-07-2017 influenza, injectable,quadrivalen t, preservative free, pediatric Blas Ortiz Other [employer] Other Payers Date Payer Category Payer Unknown [id number] 2024 Medicare [facility] MEDICARE [facility] MEDICARE [id number] 2024-Present [id number] [place] [address] [id number] 2024 Medicare (Managed Care) 1.2. [id number] 2024 Medicare [id number] 2022 Unknown 1960 Unknown [id number] 2.16.840.1.088258.3.579.2. 593 1960 Unknown [id number] 2.16.840.1.972299.3.579.2. 593 1960 Unknown [id number] 2.16.840.1.244209.3.579.2. 593 1960 Unknown [id number] 2.16.840.1.490300.3.579.2. 593 1960 Unknown [id number] 2.16.840.1.118448.3.579.2. 593 1960 Unknown [id number] 2.16.840.1.200041.3.579.2. 593 1960 Unknown [id number] 2.16.840.1.521840.3.579.2. 593 1960 Unknown [id number] 2.16.840.1.510034.3.579.2. 593 1960 Unknown [id number] 2.16.840.1.461215.3.579.2. 593 1960 Unknown [id number] 2.16.840.1.503997.3.579.2. 593 1960 Unknown [id number] 2.16.840.1.171727.3.579.2. 593 1960 Unknown [id number] 2.16.840.1.125349.3.579.2. 593 1960 Unknown [id number] 2.16.840.1.977928.3.579.2. 356 1960 Unknown [id number] 2.16.840.1.508371.3.579.2. 356 1960 Unknown [id number] 2.16.840.1.885235.3.579.2. 1244 1960 Unknown [id number] 2.16.840.1.758741.3.579.2. 1259 1960 Unknown [id number] 2.16.840.1.248215.3.579.2. 1259 1960 Unknown [id number] 2.16.840.1.381751.3.579.2. 1259 1960 Unknown [id number] 2.16.840.1.502664.3.579.2. 1259 1959 Unknown [id number] 2.16.840.1.161949.19 Medicare Medicare [id number] Self-pay Self Pay [id number] Social History Date Type Detail Facility Start: 12-04-2023 End: 07-26-2025 Occasional caffeine consumption Occasional caffeine consumption [facility] Comment on above: Coffee; Start: 12-04-2023 End: 07-26-2025 Sex Assigned At [facility] Start: 07-27-2022 End: 05-19-2023 Tobacco smoking status NHIS Never smoked tobacco (finding) [facility] Start: 1960 Sex Assigned At Female F [facility] Start: 05-19-2023 End: 12-04-2023 Tobacco use and exposure Smokeless tobacco non-user [facility] Work Phone: Start: 12-04-2023 End: 07-27-2025 Alcohol intake Lifetime non-drinker (finding) [facility] Work Phone: Start: 1960 Sex Assigned At Not on file [facility] Work Phone: Start: 02-12-2024 End: 08-25-2024 Exposure to SARS-CoV-2 (event) Not sure [facility] Start: 10-19-2024 End: 04-11-2025 Sex Female (finding) [facility] Do you belong to any clubs or organizations such as latter day groups, unions, fraternal or athletic groups, or [...] lumbar, XLIF Orthopaedic bone screw, non-bioabsorbable, non-sterile [id number] FDA Start: 07-25-2020 Fusion, spine, lumbar, XLIF Bone-screw internal spinal fixation system, non-sterile [id number] FDA Start: 07-25-2020 Fusion, spine, lumbar, XLIF STRATOFUSE DBM [id number] FDA Start: 07-25-2020 Fusion, spine, lumbar, XLIF TIMBERLINE INTERBODY FDA Start: 07-25-2020 Fusion, spine, lumbar, XLIF Spinal fusion graft kit [id number] FDA Start: 07-25-2020 Fusion, spine, lumbar, XLIF Bone-screw internal spinal fixation system, non-sterile [id number] FDA Start: 07-25-2020 Fusion, spine, lumbar, XLIF [...] lumbar, XLIF TIMBERLINE INTERBODY FDA Start: 07-25-2020 [id number], [id number] Start: 08-11-2013 End: 07-26-2026 Drug-eluting coronary artery stent, vpf-xaujluvwukuhp-ud lymer-coated ([id number] FDA Start: 03-27-2022 Femoral artery closure plug/patch, synthetic polymer ()[id number] FDA Start: 03-27-2022 Pen Needle, Diab etic [...] Quest ionnaire 2 item (PHQ-2) [Reported] [facility] Clinical Notes 12-31-2014 to 07-27-2025 Shaina Munroe DO - 07/27/2025 9:29 AM EDTAjohn Munore, DO - 07/27/2025 8:15 AM EDT Note [...] (BMI) of 35.0 to 35.9 in adult ([facility]) Type 2 diabetes mellitus with both eyes affected by mild nonproliferative retinopathy without macular edema, with long-term current use of insulin ([facility]) Social History Tobacco Use Smoking status: Never [...] daily 50 units) (100 UNIT/ML SOPN) [place] [facility] [place] A[place]HEMOGLOBIN.TOTAL:MFR:PT:BLD:QN: 8.1 Outpatient prescription Medication marked [...] Charcot's joint arthropathy (HCC) Long-term insulin use ([facility]) Class 2 severe obesity with serious comorbidity and body mass index (BMI) of 35.0 to 35.9 in adult ([facility]) Type 2 diabetes mellitus with both eyes affected by mild nonproliferative retinopathy without macular edema, with long-term current use of insulin ([facility]) Follow up in about 3 months (around [...] PO) Take by mouth CONTINUOUS BLOOD GLUC NUCLEAR SUPERVISING OPERATOR (DEXCOM G7 NUCLEAR SUPERVISING OPERATOR) DEVICE USE DIRECTED CONTINUOUS BLOOD GLUC SENSOR [...] the patient today. documented in this encounter [facility] 05-31-2025 Evaluation note Diagnosis Onset Date Resolution Chronic pain acute May 31 8:03am Sacroiliitis, not elsewhere classified acute May 31 8:03am Trochanteric bursitis acute May 8:03am [facility] Work Phone: 1(908) 162-938207-02-2025 Evaluation note* Diagnosis Onset Date Resolution Status Admit Date Chronic pain acute May 31 8:03am Sacroiliitis, not elsewhere classified acute May 31, 2025 8 :03am Trochanteric bursitis acute May 8:03am Chronic pain acute June 21, 025 9:03am Sacroiliitis, not elsewhere classified acute June 21, 2025 9:03am Trochanteric bursitis acute May 9:03am [facility] Work Phone: 1(610) 592-447007-02-2025 Evaluation note* Diagnosis Onset Date Resolution Status [...] Oral thrush acute July 12, 2025 7:36am [facility] Work Phone: 1(600) 207-878106-16-2025 History of Present illness Narrative* Shaina Munroe, [...] (BMI) of 35.0 to 35.9 in adult [place] [place] Type 2 diabetes mellitus with both eyes affected by mild nonproliferative retinopathy without macular edema, with long-term current use of insulin ([facility]) Social History Tobacco Use Smoking status: Never [...] units dinner (500 UNIT/ML SOPN) -Discontinued Labs [facility] [place]EMO[place] A1C/HEMOGLOBIN.TOTAL:MFR:PT:BLD:QN: 8.1 Outpatient prescription Medication marked [...] KWIKPEN) 100 UNIT/ML injection insulin pen needle (Footfall123 Unifine Pentips) 31G X 8 mm misc Other Relevant Orders POCT glycosylated hemoglobin (Hb A1C) docked device (Completed) 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) - Primary Long-term insulin use (HCC) Class 2 severe obesity with serious comorbidity and body mass index (BMI) of 35.0 to 35.9 in adult ([facility] Type 2 diabetes mellitus with both eyes affected by mild nonproliferative retinopathy without macular edema, with long-term current use of insulin ([facility]) Follow up in about 3 months (around [...] PO) Take by mouth CONTINUOUS BLOOD GLUC NUCLEAR SUPERVISING OPERATOR (DEXCOM G7 NUCLEAR SUPERVISING OPERATOR) DEVICE USE DIRECTED CONTINUOUS BLOOD GLUC SENSOR [...] 100 units) INSULIN PEN NEEDLE ([facility] UNIN[facility] PENTIPS) 31G X 8 MM MISC Drug [place] Unifine Pentips 31G X 8 MMmisc Injection subcutaneous tid USE DIRECTED Discontinued Medications No medications on file I have reviewed and reconciled the history and medication list with the patient today. documented in this encounterSaint [facility] [id number] Evaluation note* Diagnosis Onset Date Resolution Status [...] 2025 8:03am Trochanteric bursitis acute May 8:03am [facility] Work Phone: 1(765) 394-487002-19-2025 Evaluation note* Diagnosis Onset Date Resolution Status [...] region acu te March 06, 2025 7:41am [facility] Work Phone: 1(856) 374-105502-10-2025 Evaluation note* Author France Carlson [facility] Authored January 09, 2025 11:30am The above note written by ITZ Canchola acting as human recorder, note dictated by Dr. Charan Casey. [facility] Work Phone: 1([phone]) 767-215302-10-2025 Telephone encounter Note* Telephone Encounter - Kati Clint - 01/09/2025 1:09 PM EST Pt's spouse called to ask if Dr. Merritt has any dexcom G7 sensors. She has been without for over aweek. Her prescription has been delayed due to insurance issues, She is having an injection tomorrow and is worried about her bg readings. [facility] [id number] Miscellaneous Notes* Telephone Encounter - Kati Jaramillo - 01/09/2025 1:09 PM EST Pt's spouse called to ask if Dr. Merritt has any dexcom G7 sensors. She has been without for over aweek. Her prescription has been delayed due to insurance issues, She is having an injection tomorrow and is worried about her bg readings. documented in this encounterNOScotland [facility] [id number] Evaluation note* Author France Carlson [facility] Authored January 09, 2025 10:30am The above note written by ITZ Canchola acting as human recorder, note dictated by Dr. Charan Casey. [facility] Work Phone: 1([phone]) 928-429911-20-2024 Evaluation note* Diagnosis Onset Date Resolution Status [...] with radiculopathy, lumbar region acute Nov 9:01am [facility] Work Phone: 1(204) 790-290411-20-2024 Evaluation note* Diagnosis Onset Date Resolution Status [...] rig ht shoulder acute December 29 7:33am [facility] Work Phone: 1([phone] 440-530511-19-2024 History of Present illness Narrative* Shaina Munroe, [...] levels elevate. Under more stress with her [employer]. Diet: low carb, increase protein Drinks: water, [...] (BMI) of 39.0 to 39.9 in adult ([facility]) Type 2 diabetes mellitus with both eyes affected by mild nonproliferative retinopathy without macular edema, with long-term current use of insulin ([facility]) Social History Tobacco Use Smoking status: Never [...] Type 2 diabetes mellitus with peripheral neuropathy ([facility]) - Primary During the appointment today [...] 2 diabetes mellitus with Charcot's joint arthropathy ([facility]) Long-term insulin use ([facility]) Class 2 severe obesity with serious comorbidity and body mass index (BMI) of 39.0 to 39.9 in adult ([facility]) Type 2 diabetes mellitus with both eyes affected by mild nonproliferative retinopathy without macular edema, with long-term current use of insulin ([facility]) Follow up in about 4 months (around 02/14/2025) for Recheck. Patient's Medications New Prescriptions No medications on file Previous Medications ALLOPURINOL (ZYLOPRIM) 100 MG TABLET Take 100 mg by mouth in the morning. ASPIRIN 81 MG CHEWABLE TABLET 1 (one) time each day at the same time. BENICAR 40 MG TABLET 1 (one) time each day at the same time. CONTINUOUS BLOOD GLUC NUCLEAR SUPERVISING OPERATOR (DEXCOM G7 NUCLEAR SUPERVISING OPERATOR) DEVICE USE DIRECTED CONTINUOUS BLOOD GLUC SENSOR [...] the patient today. documented in this encounterSaint Alexius [id number] [facility] note[facility]10-14-2024 Evaluation note* Diagnosis Onset Date Resolution Status Admit Date Chronic pain acute August 8:03am Osteoarthritis of spine with radiculopathy, lumbar region acute Aug 8:03am Sacroiliitis, not elsewhere classified acute September 12 8:03am Chronic pain acute September 8:01am Osteoarthritis of spine with radiculopathy, lumbar region acute Sep 8:01am [facility] Work Phone: [phone]) 608-730210-14-2024 Evaluation note* Diagnosis Onset Date Resolution Status [...] shoulder acute October 25, 2 024 8:44am [facility] Work Phone: 1([phone]) [phone] Evaluation note* Diagnosis Onset Date Resolution Status [...] 8:44am Cough acute December 09, 2024 10:00am [facility] Work Phone: [phone] 306-251209-26-2024 History of Present illness Narrative* Rosalinda Torres [...] remains way above target and due to Ctzquzh-Nrpjg-Ilcej joints she has limited exercise capacity. Her [...] machine patient has been compliant with it. 8-Lajkodc-Eilww-Tooth joint in the ankles status post recent [...] , Rfl: ergocalciferol (Vitamin D-2) 1.25 MG (54838 UT) capsule, Take 1 capsule (50,000 Units) [...] type, unspecified whether angina present, unspecified whether [place] or transplanted heart Follow Up In Cardiology [...] exam, discussion and plan. documented in this [facility] Work Phone: 1(693) 529-802209-26-2024 Instructions* Patient Instructions* Enedina Isidro LPN - [...] Provided instructions on exercise. documented in this [facility] Work Phone: 1(301) 482-451107-02-2024 Procedure noteKindred Healthcare03-25-2024 History of Present illness Narrative* Rosalinda Torres [...] She has orthopedic problems resulting from her Jpvbgzv-Rualb-Fvyqg disease. Her labs have been followed closely. [...] machine patient has been compliant with it. 0-Obzoyao-Zbkeu-Tooth joint in the ankles status post recent [...] , Rfl: ergocalciferol (Vitamin D-2) 1.25 MG (64646 UT) capsule, Take 1 capsule (50,000 Units) [...] type, unspecified whether angina present, unspecified whether [place] or transplanted heart Follow Up In Cardiology 2. Essential hypertension 3. 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 4. Hyperlipidemia, unspecified hyperlipidemia type 5. Obstructive sleep apnea syndrome 6. Class 2 obesity with body mass index (BMI) of 37.0 to 37.9 in adult, unspecified obesity type, unspecified whether serious comorbidity present 7. Insulin-requiring or dependent type II diabetes mellitus ([facility]) Scribe Attestation By signing my name below, [...] exam, discussion and plan. documented in this [facility] Work Phone: 1(876) 703-229303-25-2024 Instructions* Patient Instructions* Enedina Isidro LPN - [...] 6 m Same medications [facility]: 1(681) 248-910201-31-2024 Evaluation note* Encounter Date Diagnosis Assessment Notes [...] to call if she does not improve. [employer] Other 12-05-2023 Evaluation note* Encounter Date Diagnosis Assessment Notes Treatment Notes Treatment Clinical Notes Oct, Hyperlipidemia (ICD-10 - E78.5) [employer] [facility] Other 11-29-2023 Evaluation note* Encounter Date Diagnosis Assessment Notes Treatment Notes Treatment Clinical Notes Sep, Trochanteric bursitis of left hip (ICD-10 - M70.62) [employer] [facility] Other 11-29-2023 Evaluation note* Encounter Date Diagnosis [...] Other Above note writ ten by Willi Levia MA, Tax Audit Manager. Edited and approved by Dr. Blas Ortiz MD. [employer] [facility] Other 11-22-2023 Evaluation note* Encounter Date Diagnosis [...] of symptoms occur by end of treatment. [employer] Other 11-20-2023 Evaluation note* Encounter Date Diagnosis Assessment Notes Treatment Notes Treatment Clinical Notes Sep, Cervical spondylosis without myelopathy (ICD-10 - M47.812) [employer] [facility] Other 11-08-2023 Evaluation note* Encounter Date Diagnosis Assessment Notes Treatment Notes Treatment Clinical Notes Sep, Hypertensive chronic kidney disease with stage 1 through stage 4 chronic kidney disease, or unspecified chronic kidney disease (ICD-10 - I12.9) [employer] Other 11-07-2023 History and physical note Author Yasmeen Treadwell [facility] October 06, 2023 8:31am Note Date/Time October 06, 2023 8 :31am [facility] [address] [place] [address] Gastroenterology H&P Signed Patient: Rita Cobb MR#: [id number] 365 : 1960 Acct:[id number] Age/Sex: 62 / F Adm Date: 3 Loc: Room: Type: [facility] Attending Dr: Yasmeen Treadwell MD Copies to: [...] <Electronically signed by Yasmeen Treadwell MD> 10/06/23830 [facility] Work Phone: 1([phone]) [phone] Procedure noteKindred Healthcare10-25-2023 Evaluation note* Encounter Date Diagnosis Assessment Notes [...] note writ ten by Corina Sánchez LPN, Tax Audit Manager. Edited and approved by Dr. Blas Ortiz MD. [employer] [facility] Other 10-17-2023 Evaluation note* Encounter Date Diagnosis [...] risk of worsening renal function and hematuria. [employer] [facility] Other 09-19-2023 Evaluation note* Encounter Date Diagnosis Assessment Notes Treatment Notes Treatment Clinical Notes Jul, Hyperuricemia (ICD-1 0 - E79.0) Jul, Diabetic neuropathy (ICD-10 - E11.40) [employer] [facility] Other 09-18-2023 Evaluation note* Encounter Date Diagnosis [...] note writ ten by Corina Sánchez LPN, Tax Audit Manager. Edited and approved by Dr. Blas Ortiz MD. [employer] [facility] Other 09-12-2023 Evaluation note* Encounter Date Diagnosis [...] Low back pain, unspecified (ICD-10 - M54.50) [employer] [facility] Other 09-06-2023 Evaluation note* Encounter Date Diagnosis [...] Screening for colon cancer (ICD-10 - Z12.11) [employer] [facility] Other 08-03-2023 Evaluation note* Encounter Date Diagnosis Assessment Notes Treatment Notes Treatment Clinical Notes Jun, Type 2 diabetes mellitus with diabetic neuropathy, unspecified (ICD-10 - E11.40) [employer] [facility] Other 06-20-2023 Evaluation note* Encounter Date Diagnosis [...] M47.812) Refill provided of the above medication. [employer] [facility] Other 06-06-2023 Evaluation note* Encounter Date Diagnosis Assessment Notes Treatment Notes Treatment Clinical Notes Apr, Type 2 diabetes mellitus with diabetic neuropathy, unspecified (ICD-10 - E11.40) [employer] Other 05-15-2023 NotePROCEDURE: XR FOOT LT 2V HISTORY: Pain COMPARISON: XR foot left 04/07/2023 FINDINGS: BONES:Several intraoperative spot fluoroscopic images demonstrate removal of 3 separate lag screws fixating the second and fourth metatarsophalangeal joints. SOFT TISSUES:Expected intraoperative findings. OTHER: Negative. IMPRESSION: 1. Hardware revision involving left midfoot. Electronically authenticated by: BLANKA OLGUIN Date: 2023-04-13 11:35[facility]05-15-2023 NotePROCEDURE: XR FOOT LT MIN [...] Electronically authenticated by: BLANKA OLGUIN Date: 2023-04-13 11:29[facility]05-09-2023 NotePROCEDURE: XR FOOT LT MIN [...] Electronically authenticated by: BLANKA OLGUIN Date: 2023-04-07 13:31[facility]05-08-2023 Evaluation note* Encounter Date Diagnosis Assessment Notes Treatment Notes Treatment Clinical Notes March, Type 2 diabetes mellitus with diabetic neuropathy, unspecified (ICD-10 - E11.40) March, Type 2 diabetes mellitus with hyperglycemia, without long-term current use of insulin (ICD-10 - E11.65) [employer] [facility] Other 05-02-2023 Evaluation note* Encounter Date Diagnosis [...] as scheduled. Most recent A1C was 7.0. [employer] Other 04-27-2023 Evaluation note* Encounter Date Diagnosis Assessment Notes Treatment Notes Treatment Clinical Notes Feb, Hypertensive chronic kidney disease with stage 1 through stage 4 chronic kidney disease, or unspecified chronic kidney disease (ICD-10 - I12.9) Feb, Type 2 diabetes mellitus with diabetic neuropathy, unspecified (ICD-10 - E11.40) [employer] [facility] Other 04-11-2023 Evaluation note* Encounter Date Diagnosis [...] have advised to continue with oral magnesium. [employer] [facility] Other 04-05-2023 Evaluation note* Encounter Date Diagnosis Assessment Notes Treatment Notes Treatment Clinical Notes Feb, Hyperlipidemia (ICD-10 - E78.5) [employer] [facility] Other 04-05-2023 Evaluation note* Encounter Date Diagnosis Assessment Notes Treatment Notes Treatment Clinical Notes Feb, Obstructive apnea (ICD-10 - G47.33) Feb, Insomnia (ICD-10 - G47.00) Feb, Neuropathy (ICD-10 - G62.9) [employer] [facility] Other 04-05-2023 NotePROCEDURE: XR FOOT LT MIN [...] Electronically authenticated by: BLANKA OLGUIN Date: 2023-03-04 06:39[facility]03-20-2023 Evaluation note* Encounter Date Diagnosis Assessment Notes Treatment Notes Treatment Clinical Notes Jan, Hypertensive chronic kidney disease with stage 1 through stage 4 chronic kidney disease, or unspecified chronic kidney disease (ICD-10 - I12.9) Jan, Diabetic neuropathy (ICD-10 - E11.40) [employer] [facility] Other 03-09-2023 Evaluation note* Encounter Date Diagnosis Assessment Notes Treatment Notes Treatment Clinical Notes Jan, Hyperuricemia (ICD-1 0 - E79.0) [employer] [facility] Other 03-08-2023 NotePROCEDURE: XR FOOT LT MIN [...] as detailed above. Electronically authenticated by: BRODERICK FLRO Date: 2023-02-04 09:36[facility]02-22-2023 NotePROCEDURE: XR FOOT LT MIN [...] Electronically authenticated by: BLANKA OLGUIN Date: 2023-01-21 10:26[facility]02-20-2023 Evaluation note* Encounter Date Diagnosis Assessment Notes Treatment Notes Treatment Clinical Notes Dec, Diabetic neuropathy (ICD-10 - E11.40) [employer] [facility] Other 01-30-2023 NotePROCEDURE: XR FOOT LT MIN [...] Electronically authenticated by: BLANKA OLGUIN Date: 2022-12-29 17:33[facility]01-30-2023 NotePROCEDURE: XR FOOT LT MIN [...] authenticated by: BLANKA OLGUIN Date: 2022-12-29 17:33[facility] [id number] NotePROCEDURE: XR FOOT LT 2V HISTORY: Pain COMPARISON: XR foot bilateral 11/12/2022 FINDINGS: BONES:Multiple intraoperative spot fluoroscopic images demonstrate resection of the bases of the metatarsals followed by midfoot fusion via lag screws. Talocalcaneal fusion. SOFT TISSUES:Expected intraoperative findings. IMPRESSION: 1. Midfoot resection and fusion. 2. Talocalcaneal fusion. Electronically authenticated by: BLANKA OLGUIN Date: 2022-12-29 17:31[facility]01-24-2023 NoteEXAM: XR CHEST 2 V [...] Electronically authenticated by: ACOSTA JOHNSON Date: 2022-12-23 12:48[facility]11-29-2022 Evaluation note* Encounter Date Diagnosis Assessment Notes Treatment Notes Treatment Clinical Notes Sep, Encounter for immunization (ICD-10 - Z23) Patient presents today for Shingrix vaccination #1 of 2. Patient denies current acute illness, denies any past allergy or serious reaction to previousvaccine or ingredients. Shingrix Vaccine material and current VIS discussed and provided to patient. [employer] Other [id number] Evaluation note* Encounter Date Diagnosis Assessment Notes Treatment Notes Treatment Clinical Notes Sep, Encounter for immunization (ICD-10 - Z23) Patient denies current illness, previous allergic reaction to influenza vaccine, eggs, or other vaccines, and Guillain-[place] Syndrome. Patient given current editions of influenza Vaccine Information Statement (VIS). [employer] [facility] Other 11-17-2022 Evaluation note* Encounter Date Diagnosis Assessment Notes Treatment Notes Treatment Clinical Notes Sep, Hypertensive chronic kidney disease with stage 1 through stage 4 chronic kidney disease, or unspecified chronic kidney disease (ICD-10 - I12.9) [employer] [facility] Other 11-17-2022 Evaluation note* Encounter Date Diagnosis Assessment Notes Treatment Notes Treatment Clinical Notes Sep, Encounter for immunization (ICD-10 - Z23) Patient presents today for COVID-19 vaccination booster. Patient pre-vaccination form answers reviewed. Patient denies current illness or allergic reaction to any component of a COVD-19 vaccine. Patient provided with copy of current EUA. [employer] [facility] Other 10-26-2022 Evaluation note* Encounter Date Diagnosis [...] her to take a low phosphorus diet. [employer] Other 10-04-2022 Evaluation note* Encounter Date Diagnosis [...] E11.40) Pateint continues on the above medications. [employer] [facility] Other 09-08-2022 Evaluation note* Encounter Date Diagnosis Assessment Notes Treatment Notes Treatment Clinical Notes Jul, Diabetic neuropathy (ICD-10 - E11.40) [employer] [facility] Other 08-17-2022 Evaluation note* Encounter Date Diagnosis Assessment Notes Treatment Notes Treatment Clinical Notes Jun, Hyperlipidemia (ICD-10 - E78.5) Jun, CKD (chronic kidney disease) stage 3, GFR 30-59 ml/min (ICD-10 - N18.3) Jun, Essential hypertension (ICD-10 - I10) [employer] [facility] Other 08-03-2022 Evaluation note* Encounter Date Diagnosis Assessment Notes Treatment Notes Treatment Clinical Notes Jun, Type 2 diabetes mellitus with diabetic neuropathy, unspecified (ICD-10 - E11.40) [employer] [facility] Other 06-01-2022 Evaluation note* Encounter Date Diagnosis Assessment Notes Treatment Notes Treatment Clinical Notes Apr, Obstructive apnea (ICD-10 - G47.33) Apr, Insomnia (ICD-10 - G47.00) Apr, Neuropathy (ICD-10 - G62.9) [employer] [facility] Other 05-16-2022 Evaluation note* Encounter Date Diagnosis [...] Patient is to continue to follow with franchise sales manager as scheduled. March, Shortness of breath (ICD-10 - R06.02) Patient is to continue to follow with the franchise sales manager as scheduled. March, Parathyroid disease (ICD-10 - E21.5) Patient is to continue to follow with the specialist as scheduled. March, Charcot foot due to diabetes mellitus (ICD-10 - E11.610) Patient is to continue to follow with as scheduled. [employer] [facility] Other 05-09-2022 Evaluation note* Encounter Date Diagnosis Assessment Notes Treatment Notes Treatment Clinical Notes March, Type 2 diabetes mellitus with diabetic neuropathy, unspecified (ICD-10 - E11.40) March, Type 2 diabetes mellitus with hyperglycemia, without long-term current use of insulin (ICD-10 - E11.65) [employer] [facility] Other 03-24-2022 Evaluation note* Encounter Date Diagnosis [...] her to take a low phosphorus diet. [employer] Other 03-11-2022 Evaluation note* Encounter Date Diagnosis [...] her symptoms worsen. 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 I did provide a work note excuse today. Jan, Shortness of breath (ICD-10 - R06.02) In house EKG ordered and reviewed. Cardiac consult recommended as above. Jan, Diabetic neuropathy (ICD-10 - E11.40) Worsening bilateral neuropathy reported by the patient . 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 [employer] [facility] Other 02-22-2022 Evaluation note* Encounter Date Diagnosis Assessment Notes Treatment Notes Treatment Clinical Notes Dec, Type 2 diabetes mellitus with diabetic neuropathy, unspecified (ICD-10 - E11.40) [employer] [facility] Other 01-04-2022 Evaluation note* Encounter Date Diagnosis [...] deficiency (ICD-10 - E55.9) Blood work ordered. [employer] [facility] Other 02-01-2015 History general Narrative - Reported* [...] necrotizing fasciitis 2017 Hospitalization History see above [facility] Other 02-01-2015 History general Narrative - Reported* [...] necrotizing fasciitis 2017 Hospitalization History see above [facility] International Other 02-01-2015 History general Narrative - Reported* [...] necrotizing fasciitis 2017 Hospitalization History see above [employer] Other 02-01-2015 History general Narrative - Reported* [...] necrotizing fasciitis 2017 Hospitalization History see above [employer] Other 02-01-2015 History general Narrative - Reported* [...] necrotizing fasciitis 2017 Hospitalization History see above [employer] Other 02-01-2015 History general Narrative - Reported* [...] Surgical History reconstruction lt foot surgery Dr. Castor 12/29/2022 Hospitalization History tachycardia 1999 Hospitalization History necrotizing fasciitis 2017 Hospitalization History see above [employer] Other 02-01-2015 History general Narrative - Reported* [...] necrotizing fasciitis 2017 Hospitalization History see above [place] [employer] Other Evaluation noteNort [employer] Other Evaluation noteNo InformationNort [employer] Other Evaluation noteNort [employer] Other evaluation noteNo assessment information available [facility] Work Phone: Evaluation note* Diagnosis Coronary artery disease, unspecified vessel or lesion type, unspecified whether angina present, unspecified whether [place] or transplanted heart- Primary Essential hypertension Unspecified essential hypertension 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 Hyperlipidemia, unspecified hyperlipidemia type Obstructive sleep apnea syndrome Obstructive sleep apnea (adult) (pediatric) Class 2 obesity with body mass index (BMI) of 37.0 to 37.9 in adult, unspecified obesity type, unspecified whether serious comorbidity present Insulin-requiring or dependent type II diabetes mellitus ([facility]) Type II or unspecified type diabetes mellitus without mention of complication, not stated as uncontrolled documented [facility] Work Phone: Evaluation note* Diagnosis Onset Date Resolution Status Chronic pain acute Inflammation of sacroiliac joint acute Osteoarthritis of spine with radiculopathy, lumbar region acute Trochanteric bursitis acute [facility] Work Phone: Evaluation note* Diagnosis Onset Date Resolution Status Chronic pain acute Inflammation of sacroiliac joint acute Osteoarthritis of spine with radiculopathy, lumbar region acute Trochanteric bursitis acute CKD (chronic kidney disease) stage 3, GFR 30-59 ml/min acute Hyperlipidemia acute Hyperparathyroidism acute [id number] acute Hyperuricemia acute Hypomagnesemia acute Nephrolithiasis acute Type 2 diabetes mellitus wit h diabetic chronic kidney disease acute [facility] Work Phone: Evaluation note* Diagnosis Onset Date Resolution Status Chronic pain acute Inflammation of sacroiliac joint acute Osteoarthritis of spine with radiculopathy, lumbar region acute Trochanteric bursitis acute CKD (chronic kidney disease) stage 3, GFR 30-59 ml/min acute Hyperlipidemia acute Hyperparathyroidism acute [id number] acute Hyperuricemia acute Hypomagnesemia acute Nephrolithiasis acute Type 2 diabetes mellitus wit h diabetic chronic kidney disease acute Chronic pain acute Lumbar muscle pain acute Osteoarthritis of spine with radiculopathy, lumbar region acute [facility] Work Phone: evaluation note* Diagnosis Onset Date Resolution Status CKD (chronic kidney disease) stage 3, GFR 30-59 ml/min acute Hyperlipidemia acute Hyperparathyroidism acute [id number] acute Hyperuricemia acute Hypomagnesemia acute Nephrolithiasis acute Type 2 diabetes mellitus wit h diabetic chronic kidney disease acute Chronic pain acute Lumbar muscle pain acute Osteoarthritis of spine with radiculopathy, lumbar region acute Chronic pain acute Osteoarthritis of spine with radiculopathy, lumbar region acute Sacroiliitis, not elsewhere classified acute [facility] Work Phone: evaluation note* Diagnosis Onset Date Resolution Status Chronic pain acute Lumbar muscle pain acute Osteoarthritis of spine with radiculopathy, lumbar region acute Chronic pain acute Osteoarthritis of spine with radiculopathy, lumbar region acute Sacroiliitis, not elsewhere classified acute [facility] Work Phone: evaluation note* Diagnosis Onset Date Resolution Status Chronic pain acute Lumbar muscle pain acute Osteoarthritis of spine with radiculopathy, lumbar region acute Chronic pain acute Osteoarthritis of spine with radiculopathy, lumbar region acute Sacroiliitis, not elsewhere classified acute Obstructive apnea acute [facility] Work Phone: evaluation note* Diagnosis Onset Date Resolution Status Chronic pain acute Lumbar muscle pain acute Osteoarthritis of spine with radiculopathy, lumbar region acute Chronic pain acute Osteoarthritis of spine with radiculopathy, lumbar region acute Sacroiliitis, not elsewhere classified acute Obstructive apnea acute Chronic pain acute Osteoarthritis of spine with radiculopathy, lumbar region acute Sacroiliitis, not elsewhere classified acute [facility] Work Phone: evaluation note* Diagnosis Onset Date Resolution Status Chronic pain acute Osteoarthritis of spine with radiculopathy, lumbar region acute Sacroiliitis, not elsewhere classified acute [facility] Work Phone: Evaluation note* Diagnosis Type 2 diabetes mellitus with peripheral neuropathy ([facility]/HCC)- Primary 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 (CMS/HCC) Long-term insulin use ([facility]) Class 2 severe obesity due to excess calories with serious comorbidity and body mass index (BMI) of 39.0 to 39.9 in adult ([facility]) Type 2 diabetes mellitus with peripheral neuropathy ([facility]/HCC)- Primary 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 ([facility]) Class 2 severe obesity due to excess calories with serious comorbidity and body mass index (BMI) of 39.0 to 39.9 in adult ([facility]) Long-term insulin use ([facility]) Spondylolisthesis at L3-L4 level Class 2 severe obesity due to excess calories with serious comorbidity and body mass index (BMI) of 38.0 to 38.9 in adult ([facility])- Primary Type 2 diabetes mellitus with both eyes affected by mild nonproliferative retinopathy without macular edema, with long-term current use of insulin ([facility]) Type 2 diabetes mellitus with peripheral neuropathy ([facility]) 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 ([facility]) Long-term insulin use ([facility]) Type 2 diabetes mellitus with peripheral neuropathy ([facility])- Primary 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 ([facility]) Type 2 diabetes mellitus with both eyes affected by mild nonproliferative retinopathy without macular edema, with long-term current use of insulin ([facility]) Long-term insulin use ([facility]) Class 2 severe obesity due to excess calories with serious comorbidity and body mass index (BMI) of 39.0 to 39.9 in adult ([facility]) documented in this encounter [facility] HealthcareEvaluation note* Diagnosis Coronary artery disease, unspecified vessel or lesion type, unspecified whether angina present, unspecified whether [place] or transplanted heart Elevated coronary artery calcium [...] serious comorbidity present documented in [facility] encounter [facility] Work Phone: Evaluation note* Author France Carlson [facility] Authored January 09, 2025 10:30am The above note written by ITZ Canchola acting as human recorder, note dictated by Dr. Charan Casey. 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) Class 2 severe obesity due to excess calories with serious comorbidity and body mass index (BMI) of 39.0 to 39.9 in adult ([facility]) Long-term insulin use (HCC) Spondylolisthesis at L3-L4 level Class 2 severe obesity due to excess calories with serious comorbidity and body mass index (BMI) of 38.0 to 38.9 in adult ([facility]-H[facility])- Primary Type 2 diabetes mellitus with [...] (BMI) of 39.0 to 39.9 in adult ([facility]) Type 2 diabetes mellitus with Charcot's [...] (BMI) of 37.0 to 37.9 in adult ([facility]) 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 [...] (BMI) of 35.0 to 35.9 in adult ([facility]) documented in this encounter [facility] HealthcareEvaluation note* Diagnosis Type 2 diabetes mellitus with peripheral neuropathy (HCC)- Primary 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) Long-term insulin use (HCC) Class 2 severe obesity due to excess calories with serious comorbidity and body mass index (BMI) of 39.0 to 39.9 in adult ([facility]) Type 2 diabetes mellitus with peripheral neuropathy (HCC)- Primary 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) Class 2 severe obesity due to excess calories with serious comorbidity and body mass index (BMI) of 39.0 to 39.9 in adult ([facility]) Long-term insulin use ([facility]) Spondylolisthesis at L3-L4 level Class 2 severe obesity due to excess calories with serious comorbidity and body mass index (BMI) of 38.0 to 38.9 in adult ([facility])- Primary Type 2 diabetes mellitus with both [...] (BMI) of 39.0 to 39.9 in adult ([facility]) 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)- Primary Type 2 diabetes mellitus with peripheral neuropathy (HCC) Type 2 diabetes mellitus with both eyes affected by mild nonproliferative retinopathy without macular edema, with long-term current use of insulin (HCC) Long-term insulin use ([facility]) Class 2 severe obesity due to excess calories with serious comorbidity and body mass index (BMI) of 37.0 to 37.9 in adult ([facility]) 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 ([facility])- Primary Type 2 diabetes mellitus with peripheral neuropathy ([facility]) Type 2 diabetes mellitus with both eyes affected by mild nonproliferative retinopathy without macular edema, with long-term current use of insulin (HCC) Long-term insulin use ([facility]) Class 2 severe obesity due to excess calories with serious comorbidity and body mass index (BMI) of 35.0 to 35.9 in adult ([facility]) Type 2 diabetes mellitus with peripheral neuropathy (HCC)- Primary 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 ([facility]) Type 2 diabetes mellitus with both eyes affected by mild nonproliferative retinopathy without macular edema, with long-term current use of insulin (HCC) Long-term insulin use ([facility]) Class 2 severe obesity due to excess calories with serious comorbidity and body mass index (BMI) of 35.0 to 35.9 in adult ([facility]) [facility] Narrative - ReportedMake Works [employer] Other History general Narrative - ReportedL[employer] Other Hospital Discharge instructions Additional Instructions DISCHARGE [...] NOT operate machinery such as power tools, [employer] mowers, snow blowers, sewing machines, etc. for [...] years. -Follow up with PCP. -Office number [phone]. [facility] Work Phone: Reason for referral (narrative)* Consultation (Routine) - Authorized Specialty Diagnoses / Procedures Referred By Contac t Referred To Contact Cardiology Diagnoses Coronary artery disease, unspecified vessel or lesion type, unspecified whether angina present, unspecified whether [place] or transplanted heart Procedures Follow Up In Cardiology Rosalinda Torres MD [address] [facility] 2, [address] [address] Rosalinda Torres MD [address], [address] [address] Referral ID Status Reason Start Date Expiration Date V isits Requested Visits Authorized [id number] Authorized 02/22/2024 02/21/2025 1 1 [facility] Work Phone: reason for referral (narrative)* Consultation (Routine) - Authorized Specialty Diagnoses / Procedures Referred By Contac t Referred To Contact Cardiology Diagnoses Coronary artery disease, unspecified vessel or lesion type, unspecified whether angina present, unspecified whether [place] or transplanted heart Procedures Follow Up In Cardiology Rosalinda Torres MD [address] [place] [address] 2, [address] [address] Rosalinda Torres MD [address] [place] [address] 2, [facility] [address] [place] [address] Referral ID Status Reason Start Date Expiration Date V isits Requested Visits Authorized [id number] Authorized 08/25/2024 08/25/2025 1 1 [facility] Work Phone: reason for referral (narrative)No reason for referral information available[facility] Work Phone: Summary Purpose Family History [...] the patient is agreeable to go on [id number] mg daily along with Zetia 10 mg [...] any trouble since her angioplasty. She has Fdpxotl-Ftqdj-Tmqbs disease and had recent surgery on the [...] has been compliant with it. * 7 Bxswkps-Dymxz-Xfljc joint in the ankles status post recent surgery on the left foot with plan to repair the right foot down the road Reason for Referral Reason Patient is need ing to having screening colonoscopy. Please schedule with [facility]. Patient DOES NOT want to see Dr. Bryant. Please call patient to schedule Diagnosis 1 Screening for colon cancer (Z12.11) Referral Organization [facility] Family Medicin e Avery Referring Provider First Name Charan Referring Provider Last Name Jacinto Referring Provider Specialty Family Giancarlo pop Referred Organization [facility] Gastroenterolo gy Referred Provider Yasmeen Treadwell Referred Address [address] [facility] ,[place], [place],[address] Referred Provider Specialty Gastroentero logy Referral Priority Routine General Notes ForeRenée M 023 10:30:05 AM >Received today and sent P2P Reason stat consult and lou at Diagnosis 1 Chest pressure (R07. 89) Diagnosis 2 Shortness of breath (R06.02) Diagnosis 3 Type 2 diabetes wicho itus with diabetic neuropathy, unspecified (E11.40) Diagnosis 4 Obstructive apnea (G 47.33) Referral Organization [facility] Family Medicin e Avery Referring Provider First Name Charan Referring Provider Last Name Jacinto Referring Provider Specialty Family Giancarlo lord Referred Organization [facility] Referred Address [address] [facility] [address],[place], [place],[address] Referred Provider Specialty Cardiology Referral Priority Stat [...] stage 3, GFR 30-59 ml/min Hyperlipidemia Hyperparathyroidism [id number] Hyperuricemia Hypomagnesemia Nephrolithiasis Type 2 diabetes mellitus [...] stage 3, GFR 30-59 ml/min Hyperlipidemia Hyperparathyroidism [id number] Hyperuricemia Hypomagnesemia Nephrolithiasis Type 2 diabetes mellitus [...] stage 3, GFR 30-59 ml/min Hyperlipidemia Hyperparathyroidism [id number] Hyperuricemia Hypomagnesemia Nephrolithiasis Type 2 diabetes mellitus [...] stage 3, GFR 30-59 ml/min Hyperlipidemia Hyperparathyroidism [id number] Hyperuricemia Hypomagnesemia Nephrolithiasis Type 2 diabetes mellitus [...] Shoulder January 26, 2025 9:45am MRI RESULTS [facility] January 26, 2025 12:50pm Reason for Visit [...] :33am dementia concerns; bone structure; SOB F [facility] 2024 9:06am F/U 2ND LUMB MBB January 18, 2025 8:00am M75.101 January 23, 2025 12:43pm MRI RESULTS [facility] January 26, 2025 12:50pm Rotator cuff syndrom R Shoulder January 8:30am LAURA LUMB RFA L3 L5/CJ February 01, 2025 12:29pm Chief Complaint Admit Date R05.9 December 08, 2024 10 :46am acute illness/ CXR ordered/ per Dr. Casey December 09, 2024 10:00am F/U 1st LAURA LUMBAR MBB December 26 9:01am 8 WK RECHECK December 29, 2024 7 :33am dementia concerns; bone structure; SOB F [facility] 2024 9:06am F/U 2ND LUMB MBB January 18, 2025 8:00am M75.101 January 23, 2025 12:43pm MRI RESULTS [facility] January 26, 2025 12:50pm Rotator cuff syndrom [...] M75.101 January 23, 2025 12:43pm MRI RESULTS [facility] January 26, 2025 12:50pm Rotator cuff syndrom [...] M75.101 January 23, 2025 12:43pm MRI RESULTS [facility] January 26, 2025 12:50pm Rotator cuff syndrom [...] 8:03a m Sacroiliitis, not elsewhere classified [facility] 2024 8:03am Trochanteric bursitis May 31, 2025 [...] 8:03a m Sacroiliitis, not elsewhere classified J [facility] 2024 8:03am Trochanteric bursitis May 31, 2025 8:0 3am Chronic pain June 21, 2025 9:03 am Sacroiliitis, not elsewhere classified J [facility] 2024 9:03am Trochanteric bursitis June 21, 2025 [...] 8:03a m Sacroiliitis, not elsewhere classified J [facility] 2024 8:03am Trochanteric bursitis May 31, 2025 8:0 3am Chronic pain June 21, 2025 9:03 am Sacroiliitis, not elsewhere classified J [facility] 2024 9:03am Trochanteric bursitis June 21, 2025 9: 03am Diabetic foot ulcer associat ed with type 2 diabetes mellitus, with fat laye July 12, 2025 7:36am MRSA bacteremia July 12, 2025 7: 36am Oral thrush July 12, 2025 7: 36am Additional Source Comments INFORMATION SOURCE (unrecogn ized section and content) DATE CREATED AUTHOR 07/28/2018 [facility] DATE CREATED AUTHOR AUTHOR'S ORGANIZ ATION 03/18/2022 [facility] DATE CREATED AUTHOR AUTHOR'S ORGANIZ ATION 10/17/2022 [facility] DATE CREATED AUTHOR AUTHOR'S ORGANIZ ATION 04/13/2023 [facility] DATE CREATED AUTHOR AUTHOR'S ORGANIZ ATION 05/08/2023 [employer] DATE CREATED AUTHOR AUTHOR'S ORGANIZ ATION 05/08/2023 [facility] ical Center DATE CREATED AUTHOR AUTHOR'S ORGANIZ ATION 02/23/2024 [facility] DATE CREATED AUTHOR AUTHOR'S ORGANIZ ATION 06/09/2025 [facility] y[facility] DATE CREATED AUTHOR AUTHOR'S ORGANIZ ATION 07/29/2025 [facility] dical Specialists EPIC REASON FOR VISIT (unrecogniz ed section and content) Reason Comments Follow-up 6m Specialty Diagnoses / Procedures Referred By Princess bird Referred To Contact Cardiology Diagnoses Coronary artery disease, unspecified vessel or lesion type, unspecified whether angina present, unspecified whether [place] or transplanted heart Procedures Follow Up In Cardiology Rosalinda Torres MD [address], [address] [address] Rosalinda Torres MD [address], [facility] [address] [place] [address] Referral ID Status Reason Start Date Expiration Date V isits Requested Visits Authorized [id number] Pending Review 02/22/2024 02/21/2025 1 1 Reason Comments Diabetes Reason Comments Follow-up [address] 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, back4 month Follow uppap issuesSHINGRIX #2 // [facility] TRADITIONAL PLAN THROUGH SPOUSESHINGRIX #1 // [facility] TRADITIONAL PLAN THROUGH SPOUSEMODERNA BIVALENT BOOSTERAFLURIA FLU VACCINECKD and HTNreview labSLEEP LABhosp recheck/ discuss disability processDocumentationFYI/ updateDisability paperworkEmployee Program F/UCKDPt no show Employee Diabetes Ed program 4/8Clinicalneuropathy, chest pressure ,SOBfyirefillsneeds [facility], [facility] [phone] Care Teams (unrecognized sec tion and content) Team Status: Active Member Role Status Josafat Casey , DO Primary Care Provider Active Team Status: Inactive Member Role Status Josafat Casey , DO Primary Care Provider Active Federico Sepulveda MD Attending Provider Active Team Status: Inactive Member Role Status Josafat Casey , DO Primary Care Provider Active Renée Watts [facility] Attending Provider Active Team Status: Inactive Member [...] DO Primary Care Provider Active Renée Watts [facility] Attending Provider Active Team Status: Inactive Member [...] Inactive Member Role Status Dates Blas Bellamy ASSISTANT BANQUET MANAGER-C Attending Provider Activ e Start: October 21, [...] December 30, 2023 End: December 30, 2023 Cis Coordinator Relationship Specialty Start Date End Date Charan Casey DO [address] [place] [address] PCP - General Family Medicine 02/22/24 Rosalinda Torres MD [address], [address] [place] [id number] Consulting Physician Cardiology 02/22/24 Team Status: Inactive [...] October 19, 2024 End: October 19, 2024 Cis Coordinator Relationship Specialty Start Date End Date Charan Casey MD [address] [place] [phone] PCP - General 05/20/23 Moni Becker MD [address] [facility] [address] [place] [address] PCP - [facility] 07/31/24 11/29/24 Cis Coordinator Relationship Specialty Start Date End Date Charan Casey DO PCP - General Family Medicine 02/22/24 Rosalinda Torres MD [address] [place] [address] 2, [facility] [address] [place] [address] Consulting Physician Cardiology 02/22/24 Team Status: Inactive [...] January 09, 2025 End: January 09, 2025 Cis Coordinator Relationship Specialty Start Date End Date Charan Casey MD [address] [place] [phone] PCP - General 05/20/23 Team Status: Active [...] January 31, 2025 End: January 31, 2025 Cis Coordinator Relationship Specialty Start Date End Date Charan Casey DO [address] [place] [phone] PCP - General 05/20/23 Team Status: Inactive [...] July 12, 2025 End: July 12, 2025 Cis Coordinator Relationship Specialty Start Date End Date Charan Casey DO [address] [place] [phone] PCP - General 05/20/23 Cis Coordinator Relationship Specialty Start Date End Date Charan Casey DO [address] [place] [phone] PCP - General 05/20/23 Goals (unrecognized section [...] BE BASED ON THE PRIMARY CLINICAL RECORDS. [employer] [facility]. provides no warranty or guarantee of the accuracy or completeness of information in this document.
== END 2025-09-13 09:12 | disposition home or self-care (01) ==
LOC: WC 09:11
PROVIDERS: PCP Family Medicine; Visit Provider Physician Assistant
DX: E11.621 Type 2 diabetes mellitus with foot ulcer (principal); L97.423 Non-pressure chronic ulcer of left heel and midfoot with necrosis of muscle
CPT/HCPCS: 29445

== ENCOUNTER 2025-09-20 10:40 | Outpatient (OUT) | payer MEDICARE, SELFPAY ==
--- OUTSIDE RECORDS SUMMARY | 2025-09-20 10:42 | XMS_ITS | Clinical Summary ---
Author Organization [facility] Address [address] [place], [place] [address] Care Team Providers Care Executive Staff Assistant Name Role Phone Charan Delgadillo DO Primary Care Provider [phone] Allergies Active AllergyReactionsCriticalityNoted DateCommentsErythromycinGI Upset 11/12/2012 Medications MedicationSigDispense QuantityRefillsLast FilledStart DateEnd DateStatus Pregabalin (LYRICA) 200 mg capsule Take 200 mg by mouth twice daily.Active lovastatin 20 mg tablet Take 20 mg by mouth daily at bedtime.Active allopurinol 300 mg tablet Take 300 mg by mouth once daily.Active metFORMIN 1,000 mg tablet Take 1,000 mg by mouth twice daily with meals.Active omega-3 acid ethyl esters (LOVAZA) 1 gram capsule Take 1 g by mouth twice daily.Active magnesium oxide 400 mg cap Take by mouth.Active lisinopril 40 mg tablet Take 40 mg by mouth once daily.Active vitamin b complex (B COMPLEX 1) Tab Take 1 tablet by mouth once daily.Active ascorbic acid (VITAMIN C) 250 mg tablet Take 250 mg by mouth once daily.Active insulin lispro (HUMALOG) 100 unit/mL injection Inject subcutaneously three times daily before meals.Active insulin glargine (LANTUS) 100 unit/mL injection Inject 100 Units subcutaneously daily at bedtime.Active pregabalin (LYRICA) 300 mg capsule Take 300 mg by mouth once daily.Active metoprolol succinate XL, long acting, 200 mg 24 hr tablet Take 200 mg by mouth once daily.Active Calcium Carbonate-Vitamin D3 500 mg(1,250mg) -600 unit Chew Take 1 tablet by mouth three times daily. 90 tablet ctive Social History Tobacco UseTypesPacks/DayYears UsedDateSmoking Tobacco: NeverSmokeless Tobacco: NeverAlcohol UseStandard Drinks/WeekCommentsNot Asked0 (1 standard drink = 0.6 oz pure alcohol)occasionallyCommentsNoSex and Gender InformationValue Date RecordedSex Assigned at BirthNot on fileLegal PxvDuzivg85/02/2012 8:57 AM ESTGender IdentityNot on fileSexual OrientationNot on file Last Filed Vital Signs Vital SignReadingTime TakenCommentsBlood Gsuijrxf981/72012/23/2012 1:14 PM EST Unwdk708612/23/2012 1:14 PM NNZGfmesbiaxhf25.7 ??C (98.1 ??F)12/08/2012 6:43 AM ESTRespiratory Upbk744412/08/2012 6:43 AM ESTOxygen Jwrqazfisf59%12/08/2012 6:43 AM ESTInhaled Oxygen Concentration--Zdralq09 kg (216 lb 1.6 oz)12/23/2012 1:14 PM FLGIipltu522.2 cm (5' 7 )11/29/2012 10:21 AM ESTBody Mass Index33.85 11/29/2012 10:21 AM EST Plan of Treatment Health MaintenanceDue DateLast DoneCommentsAnxiety Vumdocbxy38/03/1978Depression Sgoczazbi11/03/1978HIV Fwayhghto73/03/1978Hepatitis C Ihbfxzoxk12/03/1978 DTaP,Tdap,Td Vaccine (1 - Tdap)1979Cervical Cancer Atzbrtjim97/03/1981 Mammogram Nkujlcupm24/03/2000CT Wxioxtxgyvif77/03/2005Cologuard (FIT-DNA) 11/01/20059862Fgxrxlfpqkq60/03/2005Colorectal Cancer Bfplgozaf18/03/2005Fecal Occult Blood2005Lipid Vpakpfqed67/03/3150Ydobtwtvwalcd88/03/2005Pneumococcal Vaccine: 50+ (1 of 1 - PCV)2010Shingrix Vaccine (1 of 2)2010Diabetes Kkctrgpbg45Covid-19 Vaccine (1 - 2024- season)2025 Influenza Vaccine (#1)2025RSV Vaccine (1 - 1-dose 75+ series)2035 Procedures Procedure NamePriorityDate/TimeAssociated DiagnosisCommentsBASIC METABOLIC PANEL Bzespcr7511/29/2012 10:11 AM EST Hyperparathyroidism, unspecified Preoperative examination, unspecified from Last 3 Months or Most Recently Relevant to Health Maintenance Results * (ABNORMAL) BASIC METABOLIC PNL (11/29/2012 10:11 AM EST)ComponentValueRef RangeTest MethodAnalysis TimePerformed AtPathologist UwpegbqswWtqqbuo475(H)65 - 100 mg/dLUNIVERSITY [facility]ALS [facility] YCBFPDFBHVUXT441 - 25 mg/dLUNIVERSITY H[facility]ITALS [facility] LABORATORYCreatinine0.780.70 - 1.40 mg/dLUNIVERSITY HOSPITALS [facility]ALTH SYSTEM LABORATORY Qglxme863486 - 148 mmol/LCDETWILER MEMORIAL HOSPITAL LABORATORYPotassium4.43.5 - 5.0 mmol/LCCLEVELAND CLINIC MAIN IPNEMJPDAJSkbtlpne93(L)98 - 110 mmol/LCDETWILER MEMORIAL [facility]OSPITAL SYTGOSFNKPZQ24065 - 32 mmol/LCDETWILER MEMORIAL HOSPITAL LABORATORYAnion Gap16(H)0 - 15 mmol/LCDETWILER MEMORIAL HOSPITAL JDRVCMBCCETmdlnbl49.4(H)8.5 - 10.5 mg/dLUNIVERSITY [facility]ITALS [facility] LABORATORYeGFR->60UN[facility] LABORATORYeGFR-All Other Races>60.[facility] Comment: eGFR (Estimated GFR) Units of measure: mL/min/1.73 meters squared eGFR is derived from the reexpressed MDRD Study equation using the following parameters: serum creatinine, age, gender and race. The creatinine assay has been calibrated to be traceable to IDMS. An eGFR <60 mL/min/1.73m2 for >3 months is consistent with chronic kidney disease. Refer to KDOQI guidelines for clinical interpretation. Specimen (Source)Anatomical Location / LateralityCollection Method / Volume Collection TimeReceived TimeBlood specimen (specimen)BLOOD SPECIMEN / Unknown 11/29/2012 10:11 AM EST11/29/2012 10:13 AM EST Narrative Authorizing ProviderResult TypeResult StatusJudy Dexter LUKELABORATORYFinal Result Performing OrganizationAddressCity/State/ZIP CodePhone Number [facility] [address] [place] [address] from Last 3 Months or Most Recently Relevant to Health Maintenance Insurance Care Teams Team MemberRelationshipSpecialtyStart DateEnd Date Charan Delgadillo DO [address] [place] [address] PCP - GeneralFamily Nignhdla94/10/12
--- OUTSIDE RECORDS SUMMARY | 2025-09-20 10:42 | XMS_ITS | Clinical Summary ---
Author Organization [facility] Address [address] [facility] [place] [address] Care Team Providers Care Dinkey Motor Operator Name Role Phone Brysonbryn Charan Dani BASSETT Primary Care Provider [phone] Allergies Active AllergyReactionsCriticalityNoted DateCommentsErythromycinUnknown 05/15/2025Erythromycin BaseNausea Only05/19/2023LevofloxacinGI intoleranceHigh 02/22/2024 Head ache Medications MedicationSigDispense QuantityRefillsLast FilledStart DateEnd DateStatus allopurinol (Zyloprim) 100 MG tablet Take 100 mg by mouth in the morning.02/05/2023ctive ASPIRIN 81 MG chewable tablet 1 (one) time each day at the same time.Active GNP Vitamin D Maximum Strength 50 MCG (1999 UT) tablet Take by mouth Daily.12/30/2022ctive metoprolol succinate XL (Toprol-XL) 200 MG 24 hr tablet 1 (one) time each day at the same time.Active Benicar 40 MG tablet 1 (one) time each day at the same time.Active omega-3 acid ethyl esters (Lovaza) 1 g capsule Take 2 g by mouth in the morning and 2 g before bedtime.03/04/2023ctive rosuvastatin (Crestor) 10 MG tablet TAKE 1 TABLET BY MOUTH ONCE DAILY ON mondays, wednesdays, AND pomqicq9311/12/2022 Active pregabalin (Lyrica) 150 MG capsule Take 150 mg by mouth at bedtimeActive Continuous Blood Gluc Train Dispatcher (Dexcom G7 Train Dispatcher) device USE RYSHTQVN83/17/2023ctive Continuous Blood Gluc Sensor (Dexcom G7 Sensor) misc USE DIRECTED, CHANGE EVERY 10 DAYS3Active Ascorbic Acid (vitamin C) 1000 MG tablet Take 1,000 mg by mouth in the morning.Active b complex vitamins capsule Take 1 capsule by mouth in the morning.Active Bioflavonoid Products (Brooke-C) tablet as directed OrallyActive Coenzyme Q10 (CO Q 10 PO) Take by mouthActive insulin pen needle 31G X 8 mm misc Indications:Type 2 diabetes mellitus with peripheral neuropathy (HCC)Injection subcutaneous tid 100 each /6Active insulin degludec (Tresiba FlexTouch) 200 UNIT/ML injection Indications:Type 2 diabetes mellitus with peripheral neuropathy (HCC)Inject 30 Units under the skin Daily 9 mL 5Active HumaLOG KWIKPEN 100 UNIT/ML injection Indications:Type 2 diabetes mellitus with peripheral neuropathy (HCC)10 units breakfast, 14 units dinner plus correction 1:30 > 150 mg/dl (max daily 50 units) 15 mL 5Active Active Problems ProblemNoted DateDiagnosed DateType 2 diabetes mellitus with both eyes affected by mild nonproliferative retinopathy without macular edema, with long-term current use of nqztrpy9504/21/2024Type 2 diabetes mellitus with peripheral zvuknpsbuu39/13/2023 Assessment & Plan (07/27/2025 9:29 AM EDT): [...] has been more than 30-45 min since eatingthey should not give the meal dose but should just give a correction insulin dose. , Instructions given today include: Hypoglycemia management and Insulin instructions. Decrease both U-500 insulin and Humalog to help prevent low bg which then should help with PP spikes. A1c up some from multiple steroid shots over the last couple of months. 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 sapypnztvff03/13/2023 Assessment & Plan (02/11/2024 9:19 PM EDT): [...] focus more on healthy protein/fat with all mealsand snacks. They should also avoid any sugary drinks. , Instructions given today include: Insulin instructions and Dietary education Long-term insulin use10/12/2023Spondylolisthesis at L3-L4 level10/12/2023S/P laparoscopic esjtgqedbhcqmrq13/13/2023Other hammer toe(s) (acquired), left foot 10/12/2023lass 2 severe obesity with serious comorbidity and body mass index (BMI) of 35.0 to 35.9 in adult10/12/2023arpal tunnel syndrome of right wrist 01/27/2020Chronic foot ulcer04/13/2018 Encounters DateTypeDepartmentCare BxkvKvyhslnfmir37/16/2025Refill [facility] [address] [place] [address] Monica Tee LPN Type 2 diabetes mellitus with peripheral neuropathy (HCC)07/27/2025 8:15 AM EDT Office Visit [facility] [address] [place] [address] Shaina Figueroa, DO Type 2 diabetes mellitus [...] serious comorbidity and body mass index (BMI) of35.0 to 35.9 in adult ([facility]-HCC)07/27/2025amboo flowsheet [facility] [address] [place] [address] Shaina Figueroa DO 07/27/20254407Lsxzdr57/27/6173Aypdko86/25/2025Refill [facility] [address] [place] [address] Kimberley Finn LPN Type 2 diabetes mellitus with peripheral neuropathy (HCC)07/18/2025Telephone [facility] [address] [place] [address] Nancy Henriquez MA Home Health Carefrom Last 3 Months Immunizations ImmunizationAdministration DatesNext DueInfluenza, High Dose Seasonal, Preservative Free10/16/2022Influenza, injectable, quadrivalent, preservative free08/30/2019Influenza, seasonal, alfoafmcyk92/01/2019,08/30/2018Influenza, seasonal, injectable, preservative free08/30/2018,12/02/2016Influenza, seasonal, intradermal, preservative free08/30/2021Moderna SARS-CoV-2 Booster Vaccination 09/25/2021Moderna SARS-CoV-2 Guyaghizekq16/28/2021Pneumococcal Conjugate PCV 13 12/02/2016Pneumococcal Polysaccharide VZYF4640/11/2016,10/15/2016Zoster, Ljvfyidoghd69/28/2023,10/28/2022 Family History Medical HistoryRelationNameCommentsDiabetesBrotherNo Known ProblemsDaughter Atrial fibrillationFatherCoronary artery diseaseFatherDementiaFatherHeart diseaseFatherHypertensionFatherParkinsonismFatherSleep apneaFatherAsthmaMother HypertensionMotherSleep apneaMotherDiabetesPaternal GrandfatherDiabetesPaternal GrandmotherDiabetesSiblingHypertensionSonRelationNameStatusCommentsBrotherAlive2 ChildAlive2 sons 1 daughterDaughterAliveFatherDeceasedMotherAlivePaternal GrandfatherDeceasedPaternal GrandmotherDeceasedSiblingAlive2 brothersSonAlive2 Social History Tobacco UseTypesPacks/DayYears UsedDateSmoking Tobacco: NeverSmokeless Tobacco: Never Tobacco Cessation:Counseling Given: Not Answered Alcohol UseStandard Drinks/WeekCommentsNever0 (1 standard drink = 0.6 oz pure alcohol)caffeine: 1-2 cups per day [id number] Health LiteracyAnswerDate RecordedHow often do you need to have someone help you when you read instructions, pamphlets, or other written material from your doctor or pharmacy? Never07/26/2025Humiliation, Afraid, Rape, and Kick questionnaireAnswerDate RecordedWithin the last year, have you been afraid of your partner or ex-partner?No07/26/2025Within the last year, have you been humiliated or emotionally abused in other ways by your partner or ex-partner?No07/26/2025 Within the last year, have you been kicked, hit, slapped, or otherwise physically hurt by your partner or ex-partner?No07/26/2025Within the last year, have you been raped or forced to have any kind of sexual activity by your part ner or ex-partner?No07/26/2025Social Connection and Isolation PanelAnswerDate RecordedIn a typical week, how many times do you talk on the phone with family, friends, or neighbors?More than three times a week07/26/2025How often do you get together with friends or relatives?Once a week07/26/2025How often do you attend shinto or yazidi services?More than 4 times per year07/26/2025Do you belong to any clubs or organizations such as shinto groups, unions, fraternal or athletic groups, or school groups?No07/26/2025How often do you attend meetings of the clubs or organizations you belong to?Never07/26/2025re you , , , , never , or living with a partner? 07/26/2025UDIT-CAnswerDate RecordedQ1: How often do you have a drink containing alcohol?Never07/26/2025Q2: How many drinks containing alcohol do you have on a typical day when you are drinking?Patient does not drink07/26/2025Q3: How often do you have six or more drinks on one occasion?Never07/26/2025Overall Financial Resource Strain (CARDIA)AnswerDate RecordedHow hard is it for you to pay for the very basics like food, housing, medical care, and heating?Not hard at all 07/26/2025PHQ-2AnswerDate RecordedPatient Health Questionnaire-2 Score0 05/15/2025[facility] [place] [facility] - Occupational Stress QuestionnaireAnswerDate RecordedDo you feel stress - tense, restless, nervous, or anxious, or unable to sleep at night because yourmind is troubled all the time - these days?To some sxnwxt1302/08/2024Exercise Vital SignAnswerDate Recorded On average, how many days per week do you engage in moderate to strenuous exercise (like a brisk walk)?Patient izivmboo66/11/2024On average, how many minutes do you engage in exercise at this level?Patient yviaikfj61/11/2024Hunger Vital SignAnswerDate RecordedWithin the past 12 months, you worried that your food would run out before you got the money to buymore.Never true07/26/2025 Within the past 12 months, the food you bought just didn't last and you didn't have money to get more.Never true07/26/2025PRAPARE - TransportationAnswerDate RecordedIn the past 12 months, has lack of transportation kept you from medical appointments or from getting medications?No07/26/2025In the past 12 months, has lack of transportation kept you from meetings, work, or from getting things needed for daily living?No07/26/2025Housing Stability Vital SignAnswerDate RecordedIn the last 12 months, was there a time when you were not able to pay the mortgage or rent on time?No02/08/2024In the last 12 months, how many places have you lived?In the last 12 months, was there a time when you did not have a steady place to sleep or slept in burnselter (including now)?No 02/08/2024Housing Stability Vital SignAnswerDate RecordedIn the last 12 months, was there a time when you were not able to pay the mortgage or rent on time?No 07/26/2025In the past 12 months, how many times have you moved where you were living?t any time in the past 12 months, were you homeless or living in a long term (including now)?No07/26/2025CommentsUnknownSex and Gender InformationValueDate RecordedSex Assigned at BrfbkJdnobw85/21/2023 8:32 AM EDT Legal YqdXvdrlk49/15/2023 7:19 PM EDTGender MbudwstcWzruun20/21/2023 8:32 AM EDT Sexual OrientationNot on file Last Filed Vital Signs Vital SignReadingTime TakenCommentsBlood Bunzxzay951/6208 8:13 AM EDT Bnqnf836007/27/2025 8:13 AM QPNXzeiozsijtz95.4 ??C (97.5 ??F)07/27/2025 8:13 AM EDTRespiratory Rate--Oxygen Zhuvvgbtin49%07/27/2025 8:13 AM EDTInhaled Oxygen Concentration--Ylkdel417 kg (222 lb 3.2 oz)05/15/2025 10:29 AM NGWSghrih416.6 cm (5' 6 )07/27/2025 8:13 AM EDTBody Mass Index35.8606 10:29 AM EDT Plan of Treatment DateTypeDepartmentCare Team (Latest Contact Info)Evdsgjbhwum55/25/2025 10:30 AM ESTOffice Visit [facility] [place] [facility] [address] [place] [phone] Shaina Figueroa DO [address] [place] [address] Health MaintenanceDue DateLast DoneCommentsCT Knjqnnyiqfdi1960Colonoscopy 1960Colorectal Cancer Bsjnynrfa1960FIT-DNA1960FIT1960 FOBT1960 2966Qzrdqrcbviuim1960Pap Smear1981Cervical Cancer Hzeleexht92/03/1990HPV/Qwyvwt8411/01/19903695Mhltvfysq73/03/2000Influenza Vaccine (#1) 511/, 08/30/2021, 08/30/2019, Additional history exists Insurance Care Teams Team MemberRelationshipSpecialtyStart DateEnd Date Charan Delgadillo DO [address] [place] [address] PCP - General05/20/23
--- OUTSIDE RECORDS SUMMARY | 2025-09-20 10:42 | XMS_ITS | Clinical Summary ---
Author Organization [facility] Address [address] [place] [address] Phone Care Team Providers Care Vice Chancellor Name Role Phone Charan Delgadillo DO Primary Care Provider [phone] Rosalinda Cordova MD Unavailable [phone] Allergies Active AllergyReactionsCriticalityNoted DateCommentsErythromycin Base Nausea/rupevwbk47/05/2024LevofloxacinNausea/yrbqfrdnNgus43/25/2024 Head ache Medications MedicationSigDispense QuantityRefillsLast FilledStart DateEnd DateStatus allopurinol (Zyloprim) 100 mg tablet Take 1 tablet (100 mg) by mouth once daily.02/07/2022ctive ascorbic acid (Vitamin C) 1,000 mg tablet Take 1 tablet (1,000 mg) by mouth once daily.Active aspirin 81 mg EC tablet Take 1 tablet (81 mg) by mouth once daily.Active ergocalciferol (Vitamin D-2) 1.25 MG (90943 UT) capsule Take 1 capsule (50,000 Units) by mouth once daily.08/29/2021ctive insulin regular (HumuLIN R U-500, Conc, Insulin) 500 unit/mL CONCENTRATED injection Inject under the skin.Active metoprolol succinate XL (Toprol-XL) 200 mg 24 hr tablet Take 1 tablet (200 mg) by mouth once daily.Active omega-3 acid ethyl esters (Lovaza) 1 gram capsule Take 1 capsule (1 g) by mouth twice a day.Active olmesartan (Benicar) 40 mg tablet Take 1 tablet (40 mg) by mouth once daily.Active b complex vitamins (Vitamins B Complex) capsule Take 1 capsule by mouth once daily.Active insulin lispro (HumaLOG) 100 unit/mL injection Inject under the skin. Take as directed per insulin instructions.Active nitroglycerin (Nitrostat) 0.4 mg SL tablet Indications:Chest pain, unspecifiedDISSOLVE 1 TABLET UNDER THE TONGUE EVERY 5 MINUTES NEEDED FOR CHEST PAIN. DO NOT EXCEED A TOTAL OF 3 DOSES IN 15 MINUTES. GO TO THE ER IF PERSISITS. 90 tablet ctive pregabalin (Lyrica) 150 mg capsule Take 1 capsule (150 mg) by mouth once daily in the morning. Take before meals. 11/18/2023ctive pregabalin (Lyrica) 300 mg capsule Take 1 capsule (300 mg) by mouth once daily at bedtime.11/18/2023ctive COQ10, UBIQUINOL, ORAL Take by mouth.Active traMADol ER, biphasic, (Ryzolt) 100 mg 24 hr tablet Take 1 tablet (100 mg) by mouth once daily. Do not crush, chew, or split.Active rosuvastatin (Crestor) 10 mg tablet Indications:Atherosclerotic heart disease of [place] coronary artery without angina pectorisTake 1 tablet (10 mg) by mouth 3 (three) times a week. 36 tablet 12:43 PM EDT1415Active Active Problems ProblemNoted DateDiagnosed DateClass 2 obesity with body mass index (BMI) of 37.0 to 37.9 in adult02/22/2024AD (coronary artery disease)12/04/2023Elevated coronary artery calcium score12/04/2023iabetes /05/2024Essential hlmnsxofegaa36/05/8956Imrfslxyjrygua74/05/2024Obstructive sleep apnea syndrome 12/04/2023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12/04/2023 Immunizations ImmunizationAdministration DatesNext DueInfluenza, seasonal, injectable 10/16/2022Moderna SARS-CoV-2 Bablfillqqx78/17/2022neumococcal conjugate vaccine, 13-valent (PREVNAR 13)12/02/2016Pneumococcal polysaccharide vaccine, 23-valent, age 2 years and older (PNEUMOVAX 23)11/30/2016,10/15/2016 Family History Medical HistoryRelationNameCommentsCABGFatherRelationNameStatusCommentsFather Social History Tobacco UseTypesPacks/DayYears UsedDateSmoking Tobacco: NeverSmokeless Tobacco: Never Tobacco Cessation:Counseling Given: Not Answered Alcohol UseStandard Drinks/WeekCommentsNever0 (1 standard drink = 0.6 oz pure alcohol)CommentsUnknownSex and Gender InformationValueDate RecordedSex Assigned at BirthNot on fileLegal KpzDofvnz90/26/2022 10:20 AM ESTGender IdentityNot on fileSexual OrientationNot on file Last Filed Vital Signs Vital SignReadingTime TakenCommentsBlood Naksdsrx978/80008/25/2024 8:35 AM EDT Zslkm6173/26/2024 8:35 AM EDTTemperature--Respiratory Rate--Oxygen Saturation-- Inhaled Oxygen Concentration--Obvoun744 kg (241 lb)08/25/2024 8:35 AM EDTHeight 170.2 cm (5' 7 )08/25/2024 8:35 AM EDTBody Mass Index37.75008/25/2024 8:35 AM EDT Plan of Treatment DateTypeDepartmentCare Team (Latest Contact Info)Fzruknltvny63/05/2025 2:30 PM ESTOffice Visit [facility] [address] [address] Rosalinda Cordova MD [address] [facility] [address], [facility] [address] [place] [address] Health MaintenanceDue DateLast DoneCommentsCT Xtsiomiounkz1960Diabetes: Hemoglobin A1C1960Diabetes: Urine Protein Xursljfhq1960FIT-DNA (Cologuard)1960FIT1960HIV Hhspxbysp1960Lipid Panel1960 Medicare Annual Wellness Visit (AWV)1960 4723Zeykaeouyexex1960MMR Vaccines (1 of 1 - Standard series)1Diabetes: Retinopathy Screening 1970Hepatitis C Gxcfssunn24/03/1978Cervical Cancer Hkwpbxsbo13/03/1981 HPV/Lkgqad5411/01/1981Pap Smear11/01/19810589Kedlotqon43/03/2000RSV High Risk: (Elderly (60+) or Population) (1 - Risk 60-74 years 1-dose series) 2020Pneumococcal Vaccine (3 of 3 - PCV20 or PCV21)/01/2017, 11/30/2016, 10/15/2016DTaP/Tdap/Td Vaccines (2 - Td or Tdap)/08/2012 Influenza Vaccine (#1)/, 08/30/2021, 08/30/2019, Additional history existsCOVID-19 Vaccine ( season)/, 10/16/2022, 09/25/2021, Additional history zjqsnvMifmrhujbjp36/07/203311/05/2023 Colorectal Cancer Nvbrythob87/07/2033Zoster BtrwzdecDughesoij51/28/2023, 10/28/2022HIB VaccinesAged OutNo longer eligible based on patient's age to complete this topicHPV VaccinesAged OutNo longer eligible based on patient's age to complete this topicHepatitis A VaccinesAged OutNo longer eligible based on patient's age to complete this topicHepatitis B VaccinesAged OutNo longer eligible based on patient's age to complete this topicIPV VaccinesAged OutNo longer eligible based on patient's age to complete this topicMeningococcal VaccineAged OutNo longer eligible based on patient's age to complete this topic Rotavirus VaccinesAged OutNo longer eligible based on patient's age to complete this topic Insurance Care Teams Team MemberRelationshipSpecialtyStart DateEnd Date Charan Delgadillo DO PCP - GeneralFamily Medicine02/22/24 Rosalinda Cordoav MD [address] [facility] 2, [facility] [address] [place] [address] Consulting PhysicianCardiology02/22/24
--- OUTSIDE RECORDS SUMMARY | 2025-09-20 11:06 | XMS_ITS | CCD ---
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 Role Phone Charan Casey Unavailable [...] Unavailable DO Charan Casey Primary Care Provider [phone] TIOMTEO Watts Attending Provider DO Charan Casey Primary Care Provider TIMOTEO Watts Attending Provider MD Federico Sepulveda Attending Provider [phone] MD Elpidio Whipple Attending Provider ACOSTA CASTRO [...] Unavailable WESTBROD[facility] Consulting Unavailable [facility], DR HAIDER Primary Care Unavailable HIGHLANDER, ACOSTA [...] Unavailable Kuns, DO Charan Primary Care Provider [phone] MD Blas Ortiz Attending Provider MD Elpidio Whipple Attending Provider Kuns, DO Charan Primary Care Provider [phone] MD Thierno Chatterjee Attending Provider [phone] MD Blas Ortiz Attending Provider MD Elpidio Whipple Attending Provider [phone] MD Yasmeen Treadwell Attending Provider [phone] Blas Bellamy Unavailable Kuns, DO Charan Primary Care Provider [phone] MD Blas Ortiz Attending Provider [phone] Kuns, DO Charan Attending Provider Kuns, DO Charan Primary Care Provider Kuns, DO Charan Primary Care Provider Kuns Charan BASSETT Primary Care Provider Rosalinda Torres MD Unavailable ROSALINDA TORRES Attending Unavailable CHARAN CASEY MINOR Primary Care Unavailable Kuns, DO Charan Primary Care Provider Kuns, DO Charan Attending Provider MD Blas Ortiz Attending Provider [phone] Kuns, DO Charan Primary Care Provider Kuns, DO Charan Attending Provider [phone] Kuns, DO Charan Primary Care Provider [phone] Kuns, DO Charan Primary Care Provider [phone] MD Blas Ortiz Attending Provider Kuns, DO Charan Primary Care Provider [phone] ROSS Castro Attending Provider Self, Referral Attending Provider Unavailable MD Blas Ortiz Attending Provider [phone] Kuns DO, Charan Primary Care Provider Acosta Castro DPM Attending Provider [phone] Self, Referral Attending Provider Unavailable Blas Ortiz MD Attending Provider [phone] Charan Casey MD Primary Care Provider Moni Becker MD Unavailable [phone] Kunbryn BASSETT, Charan P Primary Care Provider Kuns DO, Charan Primary Care Provider Nader Curry DO Attending Provider [phone] KunCharan clemente DO Attending Provider [phone] Kuns DO, Charan Primary Care Provider [phone] Blas Ortiz MD Attending Provider [phone] Kuns Charan BASSETT Primary Care Provider Nader Curry DO Attending Provider Nader Curry DO Attending Provider [phone] Jacinto BASSETT, Charan Primary Care Provider Charan Casey DO Attending Provider Nader Curry DO Attending Provider Jacinto DO, Charan Primary Care Provider Jacinto DO, Charan P Primary Care Provider Kuns DO, Charan Primary Care Provider Brysons DO, Charan Attending Provider Blas Ortiz MD Attending Provider Jacinto DO, Charan Primary Care Provider [phone] [facility] Acosta HAWKINS Attending Provider [phone] Blas Ortiz Admitting Unavailable Blas Ortiz Attending [...] Care Unavailable Antoinette, Nader A Attending Unavailable Blas Ortiz Admitting Unavailable Blas Ortiz Attending Unavailable Kuns, Charan Primary Care Unavailable Gustavo Cuevas DO Attending Provider [phone] Karla Lyons MD Attending Provider [phone] Charan Casey DO Attending Provider SHAINA MUNROE Attending Unavailable SHAINA MUNROE Attending Unavailable SHAINA MUNROE Attending Unavailable CHARAN CASEY Referring Unavailable SHAINA MUNROE Attending Unavailable Allergies Allergy ClassificationReported Allergen(s)Allergy TypeDate of OnsetReaction(s) FacilityLincosamides (antibiotic) (1 source)ClindamycinDrug Ekusrbl59-11-8530ikqqThe University of Toledo Medical CenterQuinolones (antibiotic) (1 source)levoFLOXacinDrug Dlpvslb80-64-3607ujvzstpqllvpNbgdelpyq [facility] (20 sources)Erythromycin; Translations: [Erythromycin Base TABS]Drug Allergy 84-01-2990sgflar, Nausea/vomiting, [place]Cent[place] (20 sources)ClindamycinDrug Nsxvwzp57-58-7442uzxm med - rashSelect [facility] (20 sources)arzithomycinPropensity to adverse yciidzwmr58-73-1884ngqxthkTwin City Hospital (20 sources)erythromycin base; Translations: [Erythromycin Base]Propensity to adverse kjykgzbzk40-30-1277Ppmenm OnlySelect Medical [facility] (2 sources)levoFLOXacinDrug AllergyhypoglycemiaNowashington county memorial hospital [employer] Other (20 sources)levoFLOXacin; Translations: [LEVOFLOXACIN]Drug Oimjiqc55-39-0919 Nausea/vomiting, GI intoleranceSelect Medical [facility] Medications Current Medications MedicationDrug Class(es)DatesSig (Normalized)Sig (Original)allopurinol 100 mg oral tablet (20 sources)Xanthine Oxidase InhibitorStart: 06-15-2020 End: 26-38-0170gwiy 1 tablet by mouth in the morningallopurinol (Zyloprim) 100 MG tablet Take 100 mg by mouth in the morning. 02/05/2023 Activeascorbic acid 1000 mg oral tablet (13 sources)Vitamin Ctake 1 tablet by mouth in the morningAscorbic Acid (vitamin C) 1000 MG tablet Take 1,000 mg by mouth in the morning. Activeaspirin 81 mg delayed release oral tablet (20 sources)Platelet Aggregation Inhibitor, Nonsteroidal Anti-inflammatory Drug Start: 96-40-5492ibry 1 tablet by mouth once daily in the morningAspirin 81 mg Tablet,Delayed Release (Dr/Ec) Active 81 MG PO Every morning March 25, 2022 12:00amComplies with drug therapyASPIRIN 81 MG chewable tablet 1 (one) time each day at the same time. Activetake 1 tablet by mouth once dailyAspirin 81 MG 1 tablet Orally Once a day Activeb complex vitamins (Vitamins B Complex) capsule (2 sources)take 1 capsule by mouth once dailyb complex vitamins (Vitamins B Complex) capsule Take 1 capsule by mouth once daily. Activetake 1 capsule by mouth once dailyb complex vitamins (Vitamins B Complex) capsule Take 1 capsule by mouth once daily. 0 Activeb complex vitamins capsule (5 sources)take 1 capsule by mouth in the morningb complex vitamins capsule Take 1 capsule by mouth in the morning. ActiveBioflavonoid Products (Brooke-C) tablet (5 sources)Bioflavonoid Products (Brooke-C) tablet as directed Orally Active Blood-Glucose Sensor (Dexcom G7 Sensor) device (19 sources)Start: 92-45-6790Trkjf-Glucose Sensor (Dexcom G7 Sensor) device Active 0 .Route September 11, 2024 11:00pm As directedStart: 98-59-8679Vvdpa- Glucose Sensor (Dexcom G7 Sensor) device Active 0 .Route September 12, 2024 12:00am As directedcalcium carbonate 1500 mg oral tablet (15 sources)take 1 tablet by mouth every twenty-four hoursCalcium 600 MG 1 tablet with meals Orally Once a day Activetake 1 tablet by mouth every twenty- four hoursCalcium 600 MG 1 tablet with meals Orally Once a day Active cholecalciferol 0.05 mg oral capsule (20 sources)Vitamin DStart: 88-22-7816fenr 1 capsule by mouth once daily Cholecalciferol (Vitamin D3) 50 mcg (2,000 unit) capsule Active 50 MCG PO Daily March 01, 2024 12:00am Complies with drug therapyStart: 68-04-1298MPJ Vitamin D Maximum Strength 50 MCG (2000 UT) tablet Take by mouth Daily. 12/30/2022 Active clotrimazole 10 mg oral lozenge (1 source)Azole AntifungalStart: 26-14-9827Etnmkhkgdldm 10 mg deshawn Active 10 MG MUCOUS MEM Five times daily July 12, 2025 12:00am Complies with drug therapyCoenzyme Q10 (CO Q 10 PO) (5 sources)Coenzyme Q10 (CO Q 10 PO) Take by mouth ActiveContinuous Blood Gluc Sales Clerk Food (Dexcom G7 Sales Clerk Food) device (8 sources)Start: 35-33-0072Ipeexflahj Blood Gluc Sales Clerk Food (Dexcom G7 Sales Clerk Food) device USE DIRECTED 07/16/2023 ActiveContinuous Blood Gluc Sensor (Dexcom G7 Sensor) misc (8 sources)Start: 65-99-5210Kjpiiyocyw Blood Gluc Sensor (Dexcom G7 Sensor) misc USE DIRECTED, CHANGE EVERY 10 DAYS 08/18/2023 ActiveCoQ-10 (15 sources)CoQ-10 ActiveCoQ-10 100 MG (6 sources)CoQ-10 100 MG as directed Orally ONCE A DAY ActiveDexcom G6 Sales Clerk Food - (20 sources)Start: 03-80-4448Csizgy G6 Sales Clerk Food - use as directed to monitor dexcom sensor Feb, ActiveStart: 67-71-1787Wkxjub G6 Sensor - (20 sources)Start: 75-85-6769Maptbo G6 Sensor - as directed change q 10 days for 90 days Feb, ActiveStart: 38-98-1176Rgrvyi G6 Sensor - as directed change q 10 days Feb, ActiveStart: 50-86-0033Wyjmdw G6 Transmitter - (20 sources)Start: 20-47-3140Hcvfvy G6 Transmitter - as directed change Q 3 months Feb, ActiveStart: 75-53-5126Przeez G7 Sales Clerk Food - (20 sources)Start: 40-83-0786Nbyodk G7 Sales Clerk Food - as directed as directed as directed Jun, ActiveDexcom G7 Sensor - (20 sources)Start: 01-21-7490Fwnjen G7 Sensor - as directed as directed change every 10 days for 90 days Jun, ActiveStart: 70-86-9587Yyibbs G7 Sensor - as directed as directed change every 10 days for 30 days Jun, Active diclofenac sodium 20 mg/ml topical solution (20 sources)Nonsteroidal Anti-inflammatory DrugStart: 24-94-5731Ematungf 2 % 2 pumps to affected area Transdermal Twice a day Aug, ActiveStart: 14-06-1364klievpkqwqzgyu 1.25 mg oral capsule (20 sources)Provitamin D2 CompoundStart: 61-24-8035hhav 1 capsule by mouth once dailyergocalciferol (Vitamin D-2) 1.25 MG (98597 UT) capsule Take 1 capsule (50,000 Units) by mouth oncedaily. 08/29/2021 ActiveStart: 07-83-6951cfbe 1 tablet by mouth two times weeklyVitamin D (Ergocalciferol) 1.25 MG (45125 UT) Oral Capsule Take 1 tablet twice weekly Quantity: 0 Refills: 0 Ordered: 14-Jan-2022 DO Start : 29-Aug-2021 ActiveStart: 06-15-2020 End: 45-76-3806zgcd 1 capsule by mouth every weekErgocalciferol (Vitamin D2) 1,250 mcg (50,000 unit) Capsule Discontinued 1250 MCG PO every week June 15, 2020 12:00am March 01, 2024 9:34am thursdaytake 1 capsule by mouth every week Ergocalciferol 10845 UNIT 1 capsule Orally Q week Activetake 1 capsule by mouth every weekErgocalciferol 54106 UNIT 1 capsule Orally Q week ActiveEster-C - (20 sources)Brooke-C - as directed Orally Activefluticasone propionate 0.05 mg/actuat metered dose nasal spray (10 sources)CorticosteroidStart: 35-66-4749kihv 1 spray(s) nasal route twice dailyFluticasone Propionate 50 MCG/ACT 1 spray in each nostril Nasally Twice a day for 14 days Sep, ActiveStart: 65-44-4135gjsp 1 spray(s) nasal route twice dailyFluticasone Propionate 50 MCG/ACT 1 spray in each nostril Nasally Twice a day for 14 days Sep, Active3 ml insulin degludec 200 unt/ml pen injector (17 sources)Insulin AnalogStart: 18-91-1867zxpdxxj degludec (Tresiba FlexTouch) 200 UNIT/ML injection Indications: Type 2 diabetes mellitus with peripheral neuropathy (HCC) Inject 30 Units under the skin Daily 9 mL 3 07/27/2025 Active Start: 41-37-8258zrkefzc degludec (Tresiba FlexTouch) 200 UNIT/ML injection Indications: Type 2 diabetes mellitus with peripheral neuropathy (HCC) Inject 30 Units under the skin Daily 9 mL 3 07/27/2025 ActiveStart: 02-16-2025 End: 01-58-9554Nxfmrrl Degludec 200 unit/mL (3 mL) insulin pen Discontinued UNIT SUBCUT February 16, 2025 12:00am March 06, 2025 8:16amStart: 02-14-2025 End: 71-73-7153ovfzxof degludec (Tresiba FlexTouch) 200 UNIT/ML injection Indications: Type 2 diabetes mellitus with peripheral neuropathy (HCC) Inject 60 Units under the skin Daily 9 mL 3 02/14/2025 07/27/2025 Discontinued (Dose adjustment)Insulin Degludec 200 unit/mL (3 mL) insulin pen (5 sources)Start: 76-47-4842Qqzdcfi Degludec 200 unit/mL (3 mL) insulin pen Active 60 UNIT SUBCUT Daily March 06, 2025 8:13amStart: 02-16-2025 End: 22-82-3101Jbrnujj Degludec 200 unit/mL (3 mL) insulin pen Discontinued UNIT SUBCUT February 16, 2025 12:00am March 06, 2025 8:16amStart: 82-86-8633Hugunzk Degludec 200 unit/mL (3 mL) insulin pen Active UNIT SUBCUT February 16, 2025 12:00am3 ml insulin lispro 100 unt/ml pen injector (20 sources)Insulin AnalogStart: 02-16-2025 End: 60-06-6650ehgpknj lispro (HumaLOG KWIKPEN) 100 UNIT/ML injection Indications: Type 2 diabetes mellitus with peripheral neuropathy (HCC) 10 units breakfast, 14 units dinner plus correction 1:30 > 150 mg/dl (max daily 50 units) 15 mL 3 05/15/2025 ActiveStart: 96-05-0337jnrwxcg lispro (HumaLOG) 100 UNIT/ML injection Indications: Type 2 diabetes mellitus with peripheral neuropathy (CMS/HCC) 5 units breakfast and dinner 15 mL 3 06/21/2024 ActiveStart: 74-61-2758ldyacb 100 [IU] by subcutaneous injection at bedtimeInsulin Lispro (1 Unit Dial) 100 UNIT/ML Subcutaneous Solution Pen-injector ADMINISTER 5-6 UNITS SUBCUTANEOUSLY IN THE MORNING AND at bedtime Quantity: 12 Refills: 0 Ordered: 06-Apr-2023 DO Start : 06-Apr-2023 ActiveStart: 03-25-2022 End: 59-31-7953uvgyhk 100 [IU] by subcutaneous injection once daily at bedtime as neededInsulin Lispro (Humalog Kwikpen Insulin) 100 unit/mL insulin pen Discontinued 5 - 6 UNIT SUBCUT Twice daily February 23, 2024 5:04pm February 16, 2025 9:40am once a day in the morning and PRN QHSStart: 07-25-2020 End: 66-58-8853egxvst 5 [IU] by subcutaneous injection once daily at breakfast Insulin Lispro (Humalog Kwikpen Insulin) 100 unit/mL Insulin Pen Discontinued 5 UNIT SUBCUT Daily with breakfast July 25, 2020 12:00am February 23, 2024 5:05pmStart: 06-15-2019 End: 82-98-4472xmczck 5 [IU] by subcutaneous injection once daily in the morning Insulin Lispro (Humalog U-100 Insulin) 100 unit/mL Cartridge Discontinued 5 UNIT SUBCUT Every morning June 15, 2019 12:00am July 25, 2020 1:10pminsulin lispro (HumaLOG) 100 unit/mL injection Inject under the skin. Take as directed per insulin instructions. ActiveHumaLOG KwikPen 100 UNIT/ML 7 units q am 5-7 U qhs Subcutaneous BID - Once a day in AM, QHS prn ActiveHumaLOG SOLN USE DIRECTED. Quantity: 0 Refills: 0 Ordered: 20-Feb-2022 DO ActiveInsulin Lispro (Humalog Kwikpen Insulin) 100 unit/mL insulin pen (20 sources)Start: 28-04-5436Wtjofub Lispro (Humalog Kwikpen Insulin) 100 unit/mL insulin pen Active 8 - 12 UNIT SUBCUT Twice daily February 16, 2025 9:38am 8 units AM 12 units in the Afternoon and 12 units in the eveningStart: 02-23-2024 End: 50-68-9822barhns 100 [IU] by subcutaneous injection once daily at bedtime as neededInsulin Lispro (Humalog Kwikpen Insulin) 100 unit/mL insulin pen Discontinued 5 - 6 UNIT SUBCUT Twice daily February 23, 2024 5:04pm February 16, 2025 9:40am once a day in the morning and PRN QHSStart: 27-62-8771rehxkc 100 [IU] by subcutaneous injection once daily at bedtime as neededInsulin Lispro (Humalog Kwikpen Insulin) 100 unit/mL insulin pen Active 5 - 6 UNIT SUBCUT Twice daily February 23, 2024 4:04pm once a day in the morning and PRN QHSStart: 86-51-1968ozflqo 100 [IU] by subcutaneous injection once daily at bedtime as neededInsulin Lispro (Humalog Kwikpen Insulin) 100 unit/mL insulin pen Active 5 - 6 UNIT SUBCUT Twice daily February 23, 2024 5:04pm once a day in the morning and PRN QHS3 ml insulin, regular, human 500 unt/ml pen injector (20 sources)InsulinStart: 84-89-3725xzafcgg regular (HumuLIN R U-500 KWIKPEN) 500 UNIT/ML CONCENTRATED injection Indications: Type 2 diabetes mellitus with peripheral neuropathy (CMS/HCC) 55 units breakfast and 25 units dinner 6 mL 3 ActiveStart: 03-01-2024 End: 98-03-9221Hxavlbh Regular Hum U-500 Conc (Humulin R U-500 (Conc) Kwikpen) 500 unit/mL (3 mL) insulin pen Discontinued 55 UNIT SUBCUT Twice daily March 01, 2024 9:35am February 16, 2025 9:37amStart: 02-23-2024 End: 64-40-1623ksubej 60 [IU] by subcutaneous injection in the morning, then inject 30 [IU] by subcutaneous injection in the eveningInsulin Regular Hum U-500 Conc (Humulin R U-500 (Conc) Kwikpen) 500 unit/mL (3 mL) insulin pen Disco ntinued 0 SUBCUT As Directed February 23, 2024 5:09pm March 01, 2024 9:42am 60 units in the morning and 30 units in the evening subcutaneously as directed; Start: 86-97-8126pyorquk regular (HumuLIN R U-500 KWIKPEN) 500 UNIT/ML CONCENTRATED injection Indications: Type 2 diabetes mellitus with peripheral neuropathy (CMS/HCC) 55 units breakfast and 25 units dinner 3 mL 10/12/2023 ActiveStart: 58-96-5610trqqhn 60 [IU] by subcutaneous injection in the morning, then inject 30 [IU] by subcutaneous injection in the eveningHumuLIN R U-500 KwikPen 500 UNIT/ML Subcutaneous Solution Pen-injector ADMINISTER 60 UNITS IN THE MORNING AND 30 UNITS IN THE EVENING Quantity: 12 Refills: 0 Ordered: 06-Apr-2023 DO Start : 0-Xtr-7663KurhgqFsdmg: 02-11-2018 End: 40-63-2152Awsucxh Regular Hum U-500 Conc (Humulin R U-500 (Conc) Insulin) 500 unit/mL solution Discontinued 80 UNIT SUBCUT Daily with breakfast February 11, 2018 11:16am February 12, 2024 12:28pm Patient varies dosage depending on dietary intakeStart: 02-11-2018 End: 44-97-6499lftnir 40 [IU] by subcutaneous injection once dailyInsulin Regular Hum U-500 Conc (Humulin R U-500 (Conc) Insulin) 500 unit/mL solution Discontinued 40 UNIT SUBCUT Daily with supper February 11, 2018 11:16am February 12, 2024 12:29pm Pt. varies dosage according to dietary intake.Start: 01-21-2018 End: 36-98-8887bkyfkf 1 dose by subcutaneous injection four times dailyInsulin Regular Hum U-500 Conc (Humulin R U-500 [...] Condition: Blood Glucose Level (mg/dL) Dose/Route: Acutal UnitDose with Humulin U500 Kwik Pen Condition: 149 mg and under Dose/Route: 0 units Condition: 150 mg -199 mg Dose/Route: 5 units Condition: 200 mg [...] hs if glucose >225. Please contact the infor mation source for Protocol details.Start: 01-21-2018 End: 25-94-4093Oaqhneq Regular Hum U-500 Conc (Humulin R U-500 (Conc) Kwikpen) 500 unit/mL (3 mL) Insulin Pen Discontinued 0 .ROUTE .COMPLEX January 21, 2018 1:00am February 11, 2018 11:17am Check glucose ac, hs.Use corrective scale ac tid. Use hs if glucose >225. Please contact the information source for Pr otocol details.Start: 01-17-2018 End: 28-44-1219Ghdrevu Regular Hum U-500 Conc (Humulin R U-500 (Conc) Insulin) 500 unit/mL solution Discontinued 90 UNIT SUBCUT Daily with breakfast 0 January 21, 2018 8:54am February 11, 2018 11:16am If eatingStart: 12-25-2017 End: 79-73-4126Yegsrjj Regular Hum U-500 Conc (Humulin R U-500 (Conc) Insulin) 500 unit/mL Solution Discontinued 80 UNIT SUBCUT Daily with supper 0 January 02, 2018 6:07pm January 17, 2018 1:34amStart: 12-25-2017 End: 71-26-3595Lggeiqa Regular Hum U-500 Conc (Humulin R U-500 (Conc) Insulin) 500 unit/mL Solution Discontinued 100 UNIT SUBCUT Daily with breakfast 0 January 03, 2018 3:07pm January 17, 2018 1:34amStart: 12-25-2017 End: 90-96-1279vibyvt 100 [IU] by subcutaneous injection once daily before breakfastInsulin Regular Human (Humulin R U-100) 100 unit/mL Solution Discontinued 100 UNITS SUBCUT Daily before breakfast December 25, 2017 1:00am December 25, 2017 3:53pmStart: 12-25-2017 End: 67-49-4961usgknj 80 [IU] by subcutaneous injection once dailyInsulin Regular Human (Humulin R U-100) 100 unit/mL Solution Discontinued 80 UNITS SUBCUT Daily before supper December 25, 2017 1:00am December 25, 2017 3:53pm insulin regular (HumuLIN R U-500, Conc, Insulin) 500 unit/mL CONCENTRATED injection Inject under the skin. Activeinject 60 [IU] by subcutaneous injection every three months in the morning, then inject 30 [IU] by subcutaneous injection twice daily in the eveningHumuLIN R U-500 KwikPen 500 UNIT/ML 60 units am and 30 units pm Subcutaneous bid 3 boxes or 3 monthsupply Activeinject 70 [IU] by subcutaneous injection every three months in the morning, then inject 25 [IU] by subcutaneous injection twice daily in the eveningHumuLIN R U-500 KwikPen 500 UNIT/ML 70 units am and 25 units pm Subcutaneous bid 3 boxes or 3 monthsupply Activeinject 80 [IU] by subcutaneous injection every three months in the morning, then inject 40 [IU] by subcutaneous injection twice daily in the eveningHumuLIN R U-500 KwikPen 500 UNIT/ML 80 units am and 40 units pm Subcutaneous bid 3 boxes or 3 monthsupply Activeinject 90 [IU] by subcutaneous injection every three months in the morning, then inject 45 [IU] by subcutaneous injection twice daily in the eveningHumuLIN R U-500 KwikPen 500 UNIT/ML 90 units am and 45 units pm Subcutaneous bid 3 boxes or 3 monthsupply Active Lactobacillus Combination No.4 (Probiotic) 3 billion cell capsule (1 source)Start: 93-23-9409eqrs 3 capsules by mouth once dailyLactobacillus Combination No.4 (Probiotic) 3 billion cell capsule Active 3000 MMU CELLS PO Daily July 12, 2025 12:00am administer with a meal Complies with drug therapylevoFLOXacin 500 mg oral tablet (3 sources)Quinolone AntimicrobialStart: 92-45-2678fosj 1 tablet by mouth every twenty-four hourslevoFLOXacin 500 MG 1 tablet Orally Once a day for 7 days Nov, Activelinezolid 600 mg oral tablet (1 source)Oxazolidinone AntibacterialStart: 74-03-7707nfbt 1 tablet by mouth twice dailyLinezolid 600 mg tablet Active 600 MG PO Twice daily July 12, 2025 12:00am Complies with drug therapymagnesium glycinate 100 mg oral tablet (20 sources)Start: 84-40-4453Dipwqoact Glycinate 100 mg Tablet Active 600 MG PO Daily at bedtime June 17, 2019 12:00am Complies with drug therapyStart: 33-12-4667dcbl 600 mg by mouth once daily at bedtimeMagnesium Glycinate Active 600 MG PO Daily at bedtime June 17, 2019 12:00amStart: 01-19-2018 End: 59-84-8177Bugvfiwsx Glycinate 100 mg Tablet Discontinued 600 MG PO Daily at bedtime January 19, 2018 1:00am February 11, 2018 11:15amStart: 01-19-2018 End: 41-69-2200xppl 600 mg by mouth once daily at bedtimeMagnesium Glycinate Discontinued 600 MG PO Daily at bedtime January 19, 2018 1:00am February 11, 018 11:15amMagnesium Glycinate Plus 600 mg (20 sources)Magnesium Glycinate Plus 600 mg 1 tablet QHS Activenitroglycerin 0.4 mg sublingual tablet (20 sources)Nitrate VasodilatorStart: 71-80-5857Mnzmguubjtzvt 0.4 mg tablet, sublingual Active 0.4 MG BUCCAL As Directed as needed for Chest Pain March 25, 2022 12:00am Complies with drug therapyStart: 96-24-9400rqdsmkseeenuv (Nitrostat) 0.4 mg SL tablet Indications: Chest pain, unspecified DISSOLVE 1 TABLET UNDER THE TONGUE EVERY 5 MINUTES NEEDED FOR CHEST PAIN. DO NOT EXCEED A TOTAL OF 3 DOSES IN 15 MINUTES. GO TO THE ER IF PERSISITS. 90 tablet 1 12/24/2023 ActiveStart: 93-27-9614Jlchaguetchps Active 0.4 MG BUCCAL As Directed March 24, 2022 11:00pmomega-3 acid ethyl esters (intermediate) 1000 mg oral capsule (20 sources)Start: 62-87-6953gdiu 1 capsule by mouth in the morningomega-3 acid ethyl esters (Lovaza) 1 g capsule Take 2 g by mouth in the morning and 2 g before bedtime. 03/04/2023 ActiveStart: 06-15-2019 End: 46-22-1979Qkwss-3 Acid Ethyl Esters (Lovaza) 1 gram capsule Discontinued 2 CAP PO Twice daily 360 90 September 23, 2024 11:59am April 11, 2025 4:11pmStart: 12-25-2017 End: 12-81-0713Ksoij-3 Acid Ethyl Esters (Lovaza) 1 gram Capsule Discontinued 2 CAP PO Twice daily December 25, 2017 1:00am January 03, 2018 3:03pmomega-3 acid ethyl esters (Lovaza) 1 gram capsule Take 1 capsule (1 g) by mouth twice a day. ActivePen Needle, Diabetic (2 sources)Start: 74-16-9511Vmh Needle, Diabetic Active 0 .Route September 12, 2024 1:53pm As directedStart: 09-12-2024 End: 87-08-5370Zec Needle, Diabetic Discontinued 0 .Route September 12, 2024 12:00am September 12, 2024 1:53pmAs directedpolyethylene glycol 3350 263639 mg / potassium chloride 2970 mg / sodium bicarbonate 6740 mg / sodium chloride 5860 mg / sodium sulfate 70896 mg powder for oral solution (2 sources)Osmotic LaxativeStart: 93-32-5716Uvhigwch 236 GM At 4:00 pm the day prior to colonoscopy Orally 8 ounces every 15 minutes for 1 daysPLEASE CHECK ALLERGIES Jul, Activepregabalin 150 mg oral capsule (20 sources)Start: 01-09-2025 End: 21-49-1495oqok 1 capsule by mouth twice dailyPregabalin (Lyrica) 150 mg capsule Active 150 MG PO Twice daily 180 90 January 09, 2025 11:34am Complies with drug therapyStart: 80-42-4234xezv 1 capsule by mouth once in the morning Pregabalin 75 MG 1 capsule Orally Q AM Dec, ActiveStart: 08-02-2021 Start: 26-97-7842odhe 1 capsule by mouth once in the morningPregabalin 75 MG 1 capsule Orally Q AM Jul, ActiveStart: 04-01-2021 End: 38-83-3274uott 1 capsule by mouth once dailyPregabalin (Lyrica) 150 mg capsule Discontinued 150 MG PO Daily 90 February 12, 2024 12:34pm February 12, 2024 5:43pmStart: 04-01-2021 End: 00-89-4647byuv 2 capsules by mouth once daily in the morningPregabalin 75 mg capsule Discontinued 150 MG PO Every morning April 01, 2021 12:00am February 12, 2024 12:25pmStart: 06-15-2019 End: 41-42-5585olbq 1 capsule by mouth once daily at bedtimePregabalin (Lyrica)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 pain; Translations: [Chest pain, unspecified]Onset: 02-07-2022 Resolved: 18-24-1248DqnhaipfGvbwmuznlii deficiencies (20 sources)Vitamin D deficiency; Translations: [Vitamin D deficiency, unspecified]Onset: 12-03-2021 Resolved: 69-79-4582BjyemrzYmadyjnybzqdwg (20 sources)Osteoarthritis of joint of left hand; Translations: [Primary osteoarthritis, left hand]Onset: 71-53-5613BprjqmkPamia acquired deformities (1 source)Contracture, left ankle; Translations: [CONTRACTURE LEFT ANKLE]Onset: 68-57-1693UegsespWeqnm acquired deformities (20 sources)Spondylolisthesis; Translations: [Spondylolisthesis, lumbar region] EpisodicOther acquired deformities (4 sources)Spondylolisthesis, lumbar region; Translations: [Acquired spondylolisthesis]EpisodicOther aftercare (20 sources)Long-term current use of insulin; Translations: [MCC (current) use of insulin]Onset: 049712-00-1080OcysvtjfSaprm aftercare (20 sources)Drug therapy finding; Translations: [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]64-79-9677RryapdyeZdyiv aftercare (5 sources)Taking high risk medication; Translations: [Other alf (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 therapy]96-50-8397VyrgsquuEezai connective tissue disease (20 sources)History of arthroplasty of left knee; Translations: [Presence of left artificial knee joint]ChronicOther connective tissue disease (5 sources)Arthrodesis status; Translations: [ARTHRODESIS STATUS]Onset: 12-31-2021 Resolved: 90-52-9199JuciqbudGmzyb connective tissue disease (20 sources)Necrotizing fasciitis; Translations: [Necrotizing fasciitis] 63-87-9872YdumulepGpgws connective tissue disease (20 sources)Streptococcal necrotizing fasciitis; Translations: [Necrotizing fasciitis]04-88-9656LzfzonogKqote connective tissue disease (1 source)Trochanteric bursitis, right hipEpisodicOther connective tissue disease (3 sources)Trochanteric bursitis, left hipEpisodicOther connective tissue disease (20 sources)Bursitis of hip; Translations: [Trochanteric bursitis, unspecified hip]91-63-9553VjxqiiseEhxif connective tissue disease (7 sources)Trochanteric bursitis, unspecified hip; Translations: [Enthesopathy of hip region]71-65-8589QleidvhtXutsf connective tissue disease (20 sources)Low back pain; Translations: [Myalgia, other site]02-70-4913Mszhgtch Other connective tissue disease (5 sources)Myalgia, other site; Translations: [Lumbago]82-90-8610UfgupbtyRsqpx connective tissue disease (12 sources)Disorder of rotator cuff; Translations: [Unspecified rotator cuff tear or rupture of right shoulder, not specified as traumatic]97-75-2778Vjpqrfsq Other connective tissue disease (10 sources)Partial thickness rotator cuff tear; Translations: [Incomplete rotator cuff tear or rupture of right shoulder, not specified as traumatic] 78-94-6675XyvssmnmGfgpm connective tissue disease (5 sources)Incomplete rotator cuff tear or rupture of right shoulder, not specified as traumatic; Translations: [Rotator cuff (capsule) sprain]01-26-2025 EpisodicOther connective tissue disease (6 sources)Right rotator cuff syndrome; Translations: [Unspecified rotator cuff tear or rupture of right shoulder, not specified as traumatic]97-89-4523Kkmzibyb Other disorders of stomach and duodenum (20 sources)Disorder of function of stomach; Translations: [Other diseases of stomach and duodenum]28-65-9716YxyqadwyDxcac endocrine disorders (20 sources)Hyperparathyroidism; Translations: [Hyperparathyroidism, unspecified]69-74-5781UlpnnjwAbquj endocrine disorders (8 sources)Hyperparathyroidism, unspecified; Translations: [Hyperparathyroidism, unspecified]Onset: 02-20-2022 Resolved: 25-54-1458BiqivfcJmidh endocrine disorders (20 sources)Disorder of parathyroid gland; Translations: [Disorder of parathyroid gland, unspecified]68-90-0339HjtqjccPdnuf endocrine disorders (1 source)Disorder of parathyroid gland, unspecifiedOnset: 04-14-2022 Resolved: 40-45-2184JssoetkImswt gastrointestinal disorders (20 sources)Stool DNA-based colorectal cancer screening positive; Translations: [Other fecal abnormalities]35-73-2094TuozvwyoSoomq gastrointestinal disorders (8 sources)Constipation; Translations: [Constipation, unspecified]03-06-2025 EpisodicOther gastrointestinal disorders (2 sources)Constipation, unspecified; Translations: [Constipation, unspecified] 34-73-6723DrrncogxWrssq lower respiratory disease (20 sources)Dyspnea; Translations: [Shortness of breath]EpisodicOther lower respiratory disease (2 sources)PleurodyniaEpisodicOther lower respiratory disease (20 sources)Cough; Translations: [Cough]81-75-6527FngnwsggRnkgr nervous system disorders (20 sources)Carpal tunnel syndrome; Translations: [Carpal tunnel syndrome, right upper limb]ChronicOther nervous system disorders (20 sources)Chronic pain; Translations: [Other chronic pain]61-42-6110Tjltdrf Other nervous system disorders (20 sources)Chronic intractable pain; Translations: [Other chronic pain]Chronic Other nervous system disorders (20 sources)Neuropathy; Translations: [Polyneuropathy, unspecified]ChronicOther nervous system disorders (20 sources)Other chronic pain; Translations: [Other chronic pain]Onset: 10-01-2021 Resolved: 73-41-7516IaegbckVuxjc nervous system disorders (3 sources)Polyneuropathy, unspecifiedOnset: 04-30-2022 Resolved: 18-95-6729ZltlobtGutzo nervous system disorders (1 source)Hereditary motor and sensory neuropathy; 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]ChronicOther nervous system disorders (8 sources)Carpal tunnel syndrome of right wrist; Translations: [Carpal tunnel syndrome, right upper limb]Onset: 823113-89-3037ZrnxojdHvcgn non-traumatic joint disorders (20 sources)Charcot's joint of foot; Translations: [Charcot's joint, unspecified ankle and foot]91-61-5975XeqdusmWgaub non-traumatic joint disorders (20 sources)Arthropathy associated with a neurological disorder; Translations: [Charcot's joint, left ankle andfoot]ChronicOther non-traumatic joint disorders (6 sources)Charcot's joint, left ankle and foot; Translations: [CHARCOTS JOINT LEFT ANKLE AND FO]Onset: 05-81-3993TtrnkvaSwhve non-traumatic joint disorders (2 sources)Charcot's joint, right ankle and foot; Translations: [CHARCOTS JOINT RIGHT ANKLE AND F]Onset: 50-01-7580SjzkwzzJxrua non-traumatic joint disorders (20 sources)Pain in left knee; Translations: [Pain in left knee]EpisodicOther non-traumatic joint disorders (20 sources)Pain in right knee; Translations: [Pain in right knee]EpisodicOther non-traumatic joint disorders (20 sources)Arthralgia of the ankle and/or foot; Translations: [Pain in left ankle and joints of left foot]75-95-8115ElwvaxwwFagwg non-traumatic joint disorders (18 sources)Pain in right shoulder; Translations: [Right shoulder pain]Onset: 572916-90-5406WkdyoxyzJhrki non-traumatic joint disorders (13 sources)Joint pain; Translations: [Pain in unspecified joint]01-09-2025 EpisodicOther nutritional; endocrine; and metabolic disorders (20 sources)Obesity; Translations: [Obesity, unspecified]Onset: 02-22-2024 35-64-1963IoemouwDtwvc nutritional; endocrine; and metabolic disorders (20 sources)Hypercalcemia; Translations: [Hypercalcemia]ChronicOther nutritional; endocrine; and metabolic disorders (20 sources)Hypomagnesemia; Translations: [Hypomagnesemia]05-73-8368CpokrstIhxgt nutritional; endocrine; and metabolic disorders (6 sources)Hypomagnesemia; Translations: [Disorders of magnesium metabolism] ChronicOther nutritional; endocrine; and metabolic disorders (2 sources)Obesity, unspecified; Translations: [Obesity, unspecified]Onset: 13-09-8259JsrgywoVimse nutritional; endocrine; and metabolic disorders (2 sources)Body mass index (BMI) 37.0-37.9, adult; Translations: [Body mass index (BMI) 37.0-37.9, adult]Onset: 00-19-4148MzkqdfrGlkrc nutritional; endocrine; and metabolic disorders (14 sources)Severe obesity; Translations: [Class 2 severe obesity due to excess calories with serious comorbidity and body mass index (BMI) of 39.0 to 39.9 in adult ([facility])]Onset: 549264-60-4411JzovmufNnxqv nutritional; endocrine; and metabolic disorders (12 sources)Hyperuricemia without signs of inflammatory arthritis and tophaceous disease; Translations: [Other abnormal blood chemistry]Onset: 12-03-2021 Resolved: 74-42-0148PdazvvxhZrmil nutritional; endocrine; and metabolic disorders (20 sources)Hyperuricemia; Translations: [Hyperuricemia without signs of inflammatory arthritis and tophaceous disease]62-80-3265QjvpimtkWzqyu nutritional; endocrine; and metabolic disorders (20 sources)H/O: metabolic disorder; Translations: [Personal history of other endocrine, nutritional and metabolic disease]92-18-2341VutvrudnGiaic screening for suspected conditions (not mental disorders or infectious disease) (20 sources)Cardiovascular finding; Translations: [Abnormal findings on diagnostic imaging of other specified body structures]39-73-4243JyryjfkFuhbt screening for suspected conditions (not mental disorders or infectious disease) (14 sources)Electrocardiogram abnormal; Translations: [Nonspecific abnormal electrocardiogram [ECG] [EKG]]Onset: 87-74-6832YdylwuejUragf upper respiratory infections (1 source)Acute pansinusitis, unspecifiedEpisodicPancreatic disorders (not diabetes) (20 sources)Pancreatitis; Translations: [Acute pancreatitis without necrosis or infection, unspecified]01-26-4928VpumexznFmtdinvl codes; unclassified (20 sources)Obstructive sleep apnea syndrome; Translations: [Obstructive sleep apnea (adult)(pediatric)]Onset: 454836-69-2252PknzsisHrnjuqfn codes; unclassified (8 sources)Obstructive sleep apnea (adult) (pediatric); Translations: [Obstructive sleep apnea (adult)(pediatric)]Onset: 02-07-2022 Resolved: 19-27-4051LkcpciqAdeoehac codes; unclassified (20 sources)Sleep apnea; Translations: [Sleep apnea, unspecified]ChronicResidual codes; unclassified (2 sources)Sleep apnea, unspecified; Translations: [SLEEP APNEA UNSPECIFIED] Onset: 02-63-1173GxpsrwfVaqwlxal codes; unclassified (20 sources)Insomnia; Translations: [Insomnia, unspecified]11-77-2713Fuyxnizx Residual codes; unclassified (2 sources)Other specified postprocedural statesOnset: 04-14-2022 Resolved: 35-92-0836DpxmzhscQwessfny codes; unclassified (3 sources)Insomnia, unspecifiedOnset: 04-30-2022 Resolved: 57-24-1391MwxxiebpXlfumyio codes; unclassified (14 sources)Family history of dementia; Translations: [Family history of other mental and behavioral disorders]84-65-5523GqvysblrAalalsxg codes; unclassified (9 sources)Family history of other mental and behavioral disorders; Translations: [Family history of other neurological diseases]68-25-3409Twmkafeg Septicemia (except in labor) (20 sources)Septic shock; Translations: [Sepsis, unspecified organism]02-17-2018 EpisodicSpondylosis; intervertebral disc disorders; other back problems (20 sources)Cervical spondylosis without myelopathy; Translations: [Spondylosis without myelopathy or radiculopathy, cervical region]Onset: 10-01-2021 Resolved: 81-20-9939UamebinXjuhatfqgoh; intervertebral disc disorders; other back problems (20 sources)Neck pain; Translations: [Cervicalgia]Onset: 10-01-2021 Resolved: 50-88-0586JamogkcxYtlluwt and strains (15 sources)Traumatic rupture of biceps tendon; Translations: [Strain of muscle, fascia and tendon of long headof biceps, unspecified arm, initial encounter] 04-03-2650CdhhcxfdWkylehtizhis (1 source)CONTACT W/AND (SUSP) EXPOS COVID-19; Translations: [CONTACT W/AND (SUSP) EXPOS COVID-19]Onset: 10-42-4419Ekoffqberkwd (1 source)Cough, unspecified; Translations: [Cough, unspecified]Onset: 12-08-2024 Past or Other Problems Problem ClassificationProblemDateDocumented DateEpisodic/ChronicAcquired foot deformities (3 sources)Varus deformity, not elsewhere classified, left ankle; Translations: [Valgus deformity, not elsewhere classified, left ankle]Onset: 01-06-2023 EpisodicCardiac dysrhythmias (6 sources)Ventricular premature beats; Translations: [Other premature beats] Resolved: 02-82-9185DlnwpmyTsnfuzc kidney disease (20 sources)Chronic kidney disease; Translations: [Chronic kidney disease, stage III (moderate)]Onset: 02-20-2022 Resolved: 05-77-1633Ecrpx acquired deformities (20 sources)Lumbar spondylolisthesis; Translations: [Spondylolisthesis, lumbar region]Onset: 467210-91-9447GgzqyhwtPqrus aftercare (1 source)Other alf (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 therapy; Translations: [OTH HALF-WAY CURRENT DRUG THERAPY]Onset: 87-47-9960RzrgjcesCpvwq aftercare (1 source)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; Translations: [HALF-WAY CURRENT USE OF INSULIN]Onset: 83-73-8235BpuoyksoPfmji aftercare (1 source)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; Translations: [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 ASPIRIN]Onset: 25-64-7321ThswyrqgIgrcr aftercare (1 source)MCC (current) use of anticoagulants; Translations: [HALF-WAY CURRNT USE ANTICOAGULANTS]Onset: 09-24-7553YcstkbbvUcutf bone disease and musculoskeletal deformities (1 source)Other specified disorders of bone density and structure, left ankle and foot; Translations: [OTH D/O BONE DEN STRUCT LT ANK FOOT]Onset: 01-06-2023 EpisodicOther connective tissue disease (4 sources)Pain in left foot; Translations: [PAIN IN LEFT FOOT]Onset: 11-16-2022 EpisodicOther connective tissue disease (1 source)Pain in right foot; Translations: [PAIN IN RIGHT FOOT]Onset: 46-83-5351PhotxmncJcmhg connective tissue disease (20 sources)Unspecified rotator cuff tear or rupture of right shoulder, not specified as traumatic; Translations: [Disorders of bursae and tendons in shoulder region, unspecified]Onset: 676636-58-5329ShqkvwxsVhmxj lower respiratory disease (6 sources)Dyspnea on exertion; Translations: [Other respiratory abnormalities] Resolved: 64-68-0565JgnflmvkNughl lower respiratory disease (2 sources)Shortness of breathOnset: 02-07-2022 Resolved: 88-00-9855TksdkovjFwgmj non-traumatic joint disorders (4 sources)Pain in right ankle and joints of right foot; Translations: [PAIN IN RIGHT ANKLE]Onset: 45-51-7130SkpdtdpqBvjxt non-traumatic joint disorders (1 source)Pain in left ankle and joints of left foot; Translations: [PAIN IN LEFT ANKLE]Onset: 85-92-4681FdvjwlirCutevwcr codes; unclassified (6 sources)History of palpitations; Translations: [Personal history of other diseases of circulatory system] Resolved: 88-70-0863LyejauhpNlbwirsg codes; unclassified (1 source)Acquired absence of other specified parts of digestive tract; Translations: [ACQ ABSENCE OTH PART DIGESTV TRACT]Onset: 86-84-1369Uxiqjikf Substance-related disorders (1 source)Opioid use, unspecified, uncomplicatedOnset: 10-01-2021 Resolved: 46-83-4750DxpavcxtOrmszwwihrdi (6 sources)Never smoked tobacco; Translations: [Never a smoker]Unclassified (1 source)Cough R05.9Onset: 12-03-2021 Resolved: 73-86-9414Dppijustgisb (1 source)Low back pain, unspecified M54.50Unclassified (2 sources)Onset: Results Test NameValueInterpretationReference RangeFacilityBasophils Auto (Bld) [#/Vol] Ordered By: Karla Lyons on 68-72-4399Pnknikpfn (Bld) [#/Vol]0.0 10 3/uL0.0-0.1 [facility] DublinBasophils/100 WBC Auto (Bld)Ordered By: Karla Lyons on 86-94-9716Xmrvarxgk/100 WBC (Bld)0.1 %Low0.2-2.0[facility] DublinEosinophils/100 WBC Auto (Bld)Ordered By: Karla Lyons on 01-63-8314Eoqbckdkpxg/100 WBC (Bld)0.0 %Low0.9-7.0[facility] DublinErythrocyte distribution width Auto (RBC) [Ratio]Ordered By: Karla Lyons on 00-19-5346Xcxzvqgvkdq distribution width (RBC) [Ratio]12.2 %11.0-15.0 [facility] DublinGlobulin Calc (S) [Mass/Vol]Ordered By: Karla Lyons on 67-34-5450Nwfyyflb (S) [Mass/Vol]4.1 g/dLSelect Medical Ohiohealth Rehabilitation Hospital - DublinGlomerular filtration rate (GFR) estimation in non- AmericanOrdered By: Karla Lyons on 47-41-6710EZN/1.73 sq M.predicted among non-blacks MDRD (S/P/Bld) [Vol rate/Area]34 mL/min/{1.73_m2}Low>=60 mL/min/1.73m 2FSamaritan HospitalHematocrit Auto (Bld) [Volume fraction]Ordered By: Karla Lyons on 10-70-2190Jftfiveepz (Bld) [Volume fraction]30.3 %Low36.0-48.0 [facility] DublinHemoglobin [Mass/volume] in BloodOrdered By: Karla Lyons on 29-45-3021Yexohpzzen (Bld) [Mass/Vol]10.1 g/dLLow12.0-16.0 [facility] DublinLaboratory - Chemistry and Chemistry - challengeOrdered By: Karla Lyons on 94-52-5569Qbbqoxh [Mass/Vol]1.9 g/dLLow 3.4-5.0[facility] DublinALP [Catalytic activity/Vol]99 U/L46-116 [facility] DublinALT [Catalytic activity/Vol]23 U/L14-59 [facility] DublinAST [Catalytic activity/Vol]14 U/ENzb04-63 [facility] DublinBilirubin [Mass/Vol]0.3 mg/dL0.2-1.0[facility] DublinCalcium [Mass/Vol]8.6 mg/dL8.5-10.1FSamaritan HospitalChloride [Moles/Vol]106 mmol/Y63-941ZqfortcxeSelect Medical Ohiohealth Rehabilitation Hospital - DublinCO2 [Moles/Vol]23.0 mmol/L21.0-32.0[facility] Creatinine [Mass/Vol]1.54 mg/dLHigh0.55-1.02[facility] GFR/1.73 sq M.predicted MDRD (S/P/Bld) [Vol rate/Area]41 mL/min/{1.73_m2}Low>=60 mL/min/1.73m 2FSamaritan HospitalGlucose [Mass/Vol]253 mg/dLHigh 74-106[facility] DublinMagnesium [Mass/Vol]1.7 mg/dLLow1.8-2.4 [facility] DublinPotassium [Moles/Vol]5.0 mmol/L3.5-5.1FSamaritan HospitalProtein [Mass/Vol]6.0 g/dLLow6.4-8.2FKettering Memorial Hospitalodium [Moles/Vol]138 mmol/O098-687GhctgkuczSelect Medical [facility] Rehabilitation Hospital - DublinUrea nitrogen [Mass/Vol]56.0 mg/dLHigh7.0-18.0[facility] - DublinUrea nitrogen/Creatinine [Mass ratio]36.4 mg/mgSelect Medical [facility]health Rehabilitation Hospital - DublinLaboratory - Hematology and Cell countsOrdered By: Karla Lyons on 75-68-5366CEJ (Bld) [Velocity]106 mm/hHigh<=30[facility] Immature granulocytes/100 WBC (Bld)0.8 %High0.0-0.5FSamaritan HospitalLeukocytes [#/volume] corrected for nucleated erythrocytes in Blood by Automated counOrdered By: Karla Lyons on 78-00-6832UIS corrected for nucl RBC Auto (Bld) [#/Vol]11.8 10 3/uLHigh4.0-11.0[facility] Lymphocytes Auto (Bld) [#/Vol]Ordered By: Karla Lyons on 12-56-9712Msaehvazgag (Bld) [#/Vol]0.8 10 3/uLLow1.2-3.8[facility] Lymphocytes/100 WBC Auto (Bld)Ordered By: Karla Lyons on 06-30-2025 Lymphocytes/100 WBC (Bld)7.0 %Low20.5-60.0[facility] CenterH Auto (RBC) [Entitic mass]Ordered By: Karla Lyons on 01-48-0177AJC (RBC) [Entitic mass]29.3 pg26.7-34.0[facility] DublinMCHC Auto (RBC) [Mass/Vol]Ordered By: Karla Lyons on 69-34-4266QNLJ (RBC) [Mass/Vol]33.3 g/dL 29.9-35.2FSamaritan HospitalMCV Auto (RBC) [Entitic vol]Ordered By: Karla Lyons on 23-17-2143KTB (RBC) [Entitic vol]87.8 fL81.0-99.0[facility] DublinMonocytes Auto (Bld) [#/Vol]Ordered By: Karla Lyons on 09-46-4403Xefwogffw (Bld) [#/Vol]0.5 10 3/uL0.3-0.8[facility] DublinMonocytes/100 WBC Auto (Bld)Ordered By: Karla Lyons on 06-30-2025 Monocytes/100 WBC (Bld)3.9 %1.7-12.0[facility] DublinNeutrophils Auto (Bld) [#/Vol]Ordered By: Karla Lyons on 20-35-0327Eexcorvffsq (Bld) [#/Vol]10.4 10 3/uLHigh1.4-6.5FSamaritan HospitalNeutrophils/100 WBC Auto (Bld)Ordered By: Karla Lyons on 99-10-0982Svddubtmarr/100 WBC (Bld) 88.2 %High43.0-75.0[facility] DublinNo Panel InformationOrdered By: Gustavo Cuevas on 52-55-7393Hdhbgcjg Identification OnlySelect [facility] - DublinNo Panel InformationOrdered By: Karla Lyons on 69-76-2474J- Reactive Protein, Kgetzvzblmfo59.95 mg/dLHigh<=0.50[facility] DublinEosinophils # (Auto)0.0 10 3/uL0.0-0.7FSamaritan Hospital Immature Granulocyte # (Auto)0.09 10 3/uLHigh0.00-0.03[facility] DublinPlatelet mean volume Auto (Bld) [Entitic vol]Ordered By: Karla Lyons on 20-76-2103Inrmlxzi mean volume (Bld) [Entitic vol]11.5 fL9.5-13.5FSamaritan HospitalPlatelets Auto (Bld) [#/Vol]Ordered By: Karla Lyons on 14-12-5717Pzwufudip (Bld) [#/Vol]184 10 3/eB818-619JxwblmbizSelect Medical Ohiohealth Rehabilitation Hospital - DublinRBC Auto (Bld) [#/Vol]Ordered By: Karla Lyons on 51-97-0923YVL (Bld) [#/Vol]3.45 10 6/uLLow4.20-5.40[facility] Hospitalerum or plasma albumin/globulin mass ratioOrdered By: Karla Lyons on 06-30-2025 Albumin/Globulin [Mass ratio]0.5 {ratio}[facility] Hospitalerum or plasma anion gap determinationOrdered By: Karla Lyons on 72-91-4871Vnhdw gap [Moles/Vol]14.0 mmol/LFSamaritan HospitalBasophils Auto (Bld) [#/Vol]Ordered By: Karla Lyons on 39-21-7413Jnvhkwiqp (Bld) [#/Vol]0.0 10 3/uL 0.0-0.1FSamaritan HospitalBasophils/100 WBC Auto (Bld)Ordered By: Karla Lyons on 01-49-1823Vkaunepni/100 WBC (Bld)0.1 %Low0.2-2.0[facility] DublinEosinophils/100 WBC Auto (Bld)Ordered By: Karla Lyons on 04-22-5250Zslhxonpbni/100 WBC (Bld)0.1 %Low0.9-7.0[facility] DublinErythrocyte distribution width Auto (RBC) [Ratio]Ordered By: Karla Lyons on 77-33-7601Tqfaczpqfnj distribution width (RBC) [Ratio]12.3 %11.0-15.0 [facility] - DublinGlobulin Calc (S) [Mass/Vol]Ordered By: Karla Lyons on 72-52-6325Fcjmphtd (S) [Mass/Vol]4.3 g/dLSelect Medical Ohiohealth Rehabilitation Hospital - DublinGlomerular filtration rate (GFR) estimation in non- AmericanOrdered By: Karla Lyons on 22-30-3085EFA/1.73 sq M.predicted among non-blacks MDRD (S/P/Bld) [Vol rate/Area]31 mL/min/{1.73_m2}Low>=60 mL/min/1.73m 2FSamaritan HospitalHematocrit Auto (Bld) [Volume fraction]Ordered By: Karla Lyons on 25-72-4200Vqcixcutfh (Bld) [Volume fraction]31.1 %Low36.0-48.0 [facility] DublinHemoglobin [Mass/volume] in BloodOrdered By: Karla Lyons on 04-90-9561Rmbxkddifc (Bld) [Mass/Vol]10.6 g/dLLow12.0-16.0 [facility] DublinLaboratory - Chemistry and Chemistry - challengeOrdered By: Karla Lyons on 23-34-0326Cgomntg [Mass/Vol]2.1 g/dLLow 3.4-5.0[facility] DublinALP [Catalytic activity/Vol]88 U/L46-116 [facility] DublinALT [Catalytic activity/Vol]17 U/L14-59 [facility] DublinAST [Catalytic activity/Vol]14 U/EPge08-73 [facility] DublinBilirubin [Mass/Vol]0.5 mg/dL0.2-1.0[facility] DublinCalcium [Mass/Vol]8.9 mg/dL8.5-10.1FSamaritan HospitalChloride [Moles/Vol]104 mmol/D17-136KjgvzuehnSelect Medical Ohiohealth Rehabilitation Hospital - DublinCO2 [Moles/Vol]21.2 mmol/L21.0-32.0[facility] Creatinine [Mass/Vol]1.68 mg/dLHigh0.55-1.02[facility] GFR/1.73 sq M.predicted MDRD (S/P/Bld) [Vol rate/Area]37 mL/min/{1.73_m2}Low>=60 mL/min/1.73m 2FSamaritan HospitalGlucose [Mass/Vol]201 mg/dLHigh 74-106[facility] DublinPotassium [Moles/Vol]5.1 mmol/L3.5-5.1 [facility] DublinProtein [Mass/Vol]6.4 g/dL6.4-8.2FKettering Memorial Hospitalodium [Moles/Vol]137 mmol/X434-179BjkescwezSelect Medical Ohiohealth Rehabilitation Hospital - DublinUrea nitrogen [Mass/Vol]62.0 mg/dLHigh7.0-18.0[facility] - DublinUrea nitrogen/Creatinine [Mass ratio]36.9 mg/mgSelect Medical Ohiohealth Rehabilitation Hospital - DublinLaboratory - Chemistry and Chemistry - challengeOrdered By: Elpidio Whipple on 32-84-3941Qvhkxqcdz [Mass/Vol]1.9 mg/dL1.8-2.4FSamaritan HospitalLaboratory - Hematology and Cell countsOrdered By: Karla Lyons on 84-50-5545Jrjbwyee granulocytes/100 WBC (Bld)0.3 %0.0-0.5FSamaritan HospitalLeukocytes [#/volume] corrected for nucleated erythrocytes in Blood by Automated counOrdered By: Karla Lyons on 45-24-5681TLJ corrected for nucl RBC Auto (Bld) [#/Vol]14.5 10 3/uLHigh4.0-11.0[facility] - DublinLymphocytes Auto (Bld) [#/Vol]Ordered By: Karla Lyons on 06-29-2025 Lymphocytes (Bld) [#/Vol]0.7 10 3/uLLow1.2-3.8[facility] Lymphocytes/100 WBC Auto (Bld)Ordered By: Karla Lyons on 06-29-2025 Lymphocytes/100 WBC (Bld)4.9 %Low20.5-60.0[facility] Auto (RBC) [Entitic mass]Ordered By: Karla Lyons on 00-93-7907UME (RBC) [Entitic mass]30.1 pg26.7-34.0[facility] - DublinMCHC Auto (RBC) [Mass/Vol]Ordered By: Karla Lyons on 40-12-2760EPRG (RBC) [Mass/Vol]34.1 g/dL 29.9-35.2FSamaritan HospitalMCV Auto (RBC) [Entitic vol]Ordered By: Karla Lyons on 69-33-5131PEE (RBC) [Entitic vol]88.4 fL81.0-99.0[facility] - DublinMonocytes Auto (Bld) [#/Vol]Ordered By: Karla Lyons on 07-49-3543Hsqgdbofg (Bld) [#/Vol]0.7 10 3/uL0.3-0.8[facility] - DublinMonocytes/100 WBC Auto (Bld)Ordered By: Karla Lyons on 06-29-2025 Monocytes/100 WBC (Bld)4.8 %1.7-12.0[facility] - DublinNeutrophils Auto (Bld) [#/Vol]Ordered By: Karla Lyons on 49-65-1166Kfhjiscqvaw (Bld) [#/Vol]13.0 10 3/uLHigh1.4-6.5FSamaritan HospitalNeutrophils/100 WBC Auto (Bld)Ordered By: Karla Lyons on 59-68-1336Hrodtkugvvu/100 WBC (Bld) 89.8 %High43.0-75.0[facility] - DublinNo Panel InformationOrdered By: Karla Lyons on 94-71-3816Qkgjpmwldrl # (Auto)0.0 10 3/uL0.0-0.7FSamaritan HospitalImmature Granulocyte # (Auto)0.05 10 3/uLHigh0.00-0.03 [facility] - DublinPlatelet mean volume Auto (Bld) [Entitic vol] Ordered By: Karla Lyons on 07-73-6060Siwabdyp mean volume (Bld) [Entitic vol] 11.4 fL9.5-13.5FSamaritan HospitalPlatelets Auto (Bld) [#/Vol] Ordered By: Karla Lyons on 52-15-8916Musbfeweq (Bld) [#/Vol]178 10 3/wA116-174 [facility] - DublinRBC Auto (Bld) [#/Vol]Ordered By: Karla Lyons on 99-84-0386AOU (Bld) [#/Vol]3.52 10 6/uLLow4.20-5.40Newark Hospitalerum or plasma albumin/globulin mass ratioOrdered By: Karla Lyons on 19-97-8441Jwwfote/Globulin [Mass ratio]0.5 {ratio}Newark Hospitalerum or plasma anion gap determinationOrdered By: Karla Lyons on 60-21-8251Irbwu gap [Moles/Vol]16.9 mmol/LFSamaritan Hospital Basophils Auto (Bld) [#/Vol]Ordered By: Charan Casey on 17-36-5406Hrgedektp (Bld) [#/Vol]0.0 10 3/uL0.0-0.1FSamaritan HospitalBasophils/100 WBC Auto (Bld)Ordered By: Charan Casey on 88-77-0108Ixkcoivgx/100 WBC (Bld)0.1 %Low0.2-2.0 [facility] - DublinEosinophils/100 WBC Auto (Bld)Ordered By: Charan Casey on 07-03-1982Ndpofqhjpgg/100 WBC (Bld)0.1 %Low0.9-7.0[facility] - DublinErythrocyte distribution width Auto (RBC) [Ratio]Ordered By: Charan Casey on 88-70-1224Bsvjetpngxr distribution width (RBC) [Ratio]12.1 %11.0-15.0 [facility] - DublinGlobulin Calc (S) [Mass/Vol]Ordered By: Gustavo Cuevas on 66-62-0014Qhfwksek (S) [Mass/Vol]4.6 g/dLSelect Medical Ohiohealth Rehabilitation Hospital - DublinGlomerular filtration rate (GFR) estimation in non- AmericanOrdered By: Gustavo Cuevas on 63-17-1873RVL/1.73 sq M.predicted among non-blacks MDRD (S/P/Bld) [Vol rate/Area]19 mL/min/{1.73_m2}Low>=60 mL/min/1.73m 2FSamaritan HospitalHematocrit Auto (Bld) [Volume fraction]Ordered By: Charan Casey on 61-95-1680Hxjshglgkw (Bld) [Volume fraction]33.7 %Low36.0-48.0[facility] - DublinHemoglobin [Mass/volume] in BloodOrdered By: Charan Casey on 06-54-8423Lhipuitcww (Bld) [Mass/Vol]11.7 g/dLLow12.0-16.0[facility] - DublinINR in Platelet poor plasma by Coagulation assayOrdered By: Gustavo Cuevas on 85-67-9623CDN Coag (PPP) [Relative time]1.02 {INR}[facility] - DublinComment on above:DESIRED INR:2.0-3.0 CONDITIONS NOT LISTED BELOW2.5-3.5 FOR PROSTHETIC HEART VALVE REPLACEMENT2.5-3.5 RECURRENT THROMBOSISLaboratory - Chemistry and Chemistry - challengeOrdered By: Gustavo Cuevas on 23-30-4090Goafbsw [Mass/Vol]2.7 g/dLLow3.4-5.0[facility] - DublinALP [Catalytic activity/Vol]90 U/B22-086FfgdbwqaeSelect Medical [facility]health Rehabilitation Hospital - Dublin ALT [Catalytic activity/Vol]23 U/V30-58ZzuviqduoSelect Medical Ohiohealth Rehabilitation Hospital - DublinAST [Catalytic activity/Vol]25 U/I19-42PeyvslgxaSelect Medical Ohiohealth Rehabilitation Hospital - DublinBilirubin [Mass/Vol]0.6 mg/dL0.2-1.0[facility] - DublinCalcium [Mass/Vol]9.3 mg/dL8.5-10.1FSamaritan HospitalChloride [Moles/Vol]99 mmol/L 98-107[facility] - DublinCO2 [Moles/Vol]22.3 mmol/L21.0-32.0 [facility] DublinCreatinine [Mass/Vol]2.58 mg/dLHigh0.55-1.02 [facility] - DublinGFR/1.73 sq M.predicted MDRD (S/P/Bld) [Vol rate/Area]23 mL/min/{1.73_m2}Low>=60 mL/min/1.73m 2FSamaritan HospitalGlucose [Mass/Vol]81 mg/oT08-422AfeihkauxSelect Medical Ohiohealth Rehabilitation Hospital - DublinLactate [Moles/Vol]1.3 mmol/L0.4-2.0[facility] - DublinPotassium [Moles/Vol]4.9 mmol/L3.5-5.1FSamaritan HospitalProtein [Mass/Vol] 7.3 g/dL6.4-8.2FKettering Memorial Hospitalodium [Moles/Vol]136 mmol/L 136-145[facility] - DublinUrea nitrogen [Mass/Vol]72.0 mg/dLHigh 7.0-18.0[facility] - DublinUrea nitrogen/Creatinine [Mass ratio] 27.9 mg/mgSelect Medical Ohiohealth Rehabilitation Hospital - DublinLaboratory - Hematology and Cell countsOrdered By: Charan Casey on 36-57-1339ZWS (Bld) [Velocity]104 mm/hHigh<=30 [facility] - DublinImmature granulocytes/100 WBC (Bld)0.5 %0.0-0.5 [facility] - DublinLeukocytes [#/volume] corrected for nucleated erythrocytes in Blood by Automated counOrdered By: Charan Casey on 86-56-5668ALD corrected for nucl RBC Auto (Bld) [#/Vol]17.3 10 3/uLHigh4.0-11.0[facility] - DublinLymphocytes Auto (Bld) [#/Vol]Ordered By: Charan Casey on 59-11-3539Jicxglotozh (Bld) [#/Vol]0.7 10 3/uLLow1.2-3.8[facility] - DublinLymphocytes/100 WBC Auto (Bld)Ordered By: Charan Casey on 06-28-2025 Lymphocytes/100 WBC (Bld)4.0 %Low20.5-60.0[facility] Auto (RBC) [Entitic mass]Ordered By: Charan Casey on 25-55-5647FSP (RBC) [Entitic mass]30.4 pg26.7-34.0[facility] CenterHC Auto (RBC) [Mass/Vol] Ordered By: Charan Casey on 13-93-5555JQLE (RBC) [Mass/Vol]34.7 g/dL29.9-35.2 [facility] - DublinMCV Auto (RBC) [Entitic vol]Ordered By: Charan Casey on 81-30-8452PXA (RBC) [Entitic vol]87.5 fL81.0-99.0[facility] - DublinMonocytes Auto (Bld) [#/Vol]Ordered By: Charan Casey on 06-28-2025 Monocytes (Bld) [#/Vol]0.7 10 3/uL0.3-0.8[facility] Monocytes/100 WBC Auto (Bld)Ordered By: Charan Casey on 82-02-5905Ugexxutcu/100 WBC (Bld)4.0 %1.7-12.0[facility] - DublinNeutrophils Auto (Bld) [#/Vol]Ordered By: Charan Casey on 87-22-4825Vpotogndajt (Bld) [#/Vol]15.8 10 3/uL High1.4-6.5FSamaritan HospitalNeutrophils/100 WBC Auto (Bld) Ordered By: Charan Casey on 15-73-0762Twjsupgqcfa/100 WBC (Bld)91.3 %High43.0-75.0 [facility] - DublinNo Panel InformationOrdered By: Charan Casey on 76-86-7693X-Reactive Protein, Qmtaozignzsa63.00 mg/dLHigh<=0.50[facility] - DublinEosinophils # (Auto)0.0 10 3/uL0.0-0.7FSamaritan HospitalImmature Granulocyte # (Auto)0.09 10 3/uLHigh0.00-0.03[facility] - DublinNo Panel InformationOrdered By: Gustavo Cuevas on 06-28-2025 Venous Blood Partial Pressure CO241.7 mm[Hg]40.0-52.0[facility] - DublinVenous Blood pH7.3547.330-7.430[facility] - DublinPlatelet mean volume Auto (Bld) [Entitic vol]Ordered By: Charan Casey on 00-02-5263Pjsbdhvz mean volume (Bld) [Entitic vol]11.8 fL9.5-13.5FSamaritan Hospital Platelets Auto (Bld) [#/Vol]Ordered By: Charan Casey on 03-22-4173Jgbcpqpmg (Bld) [#/Vol]178 10 3/nU419-824NigmtomxzSelect Medical Ohiohealth Rehabilitation Hospital - DublinProthrombin time (PT) Ordered By: Gustavo Cuevas on 73-68-1036TR Coag (PPP) [Time]10.8 s9.0-11.6FSamaritan HospitalRBC Auto (Bld) [#/Vol]Ordered By: Charan Casey on 23-50-0928QOT (Bld) [#/Vol]3.85 10 6/uLLow4.20-5.40Newark Hospitalerum or plasma albumin/globulin mass ratioOrdered By: Gustavo Cuevas on 82-80-8055Babllzp/Globulin [Mass ratio]0.6 {ratio}[facility]ark Hospitalerum or plasma anion gap determinationOrdered By: Gustavo Cuevas on 33-28-3778Pzkvk gap [Moles/Vol]19.6 mmol/LFSamaritan HospitalX-ray reportOrdered By: Néstor Mays on 60-62-9916Zwmlw reportAULTMAN [facility] [place] [address] [place] [address] XRay Report Signed Patient: Rita Cobb MR#: [id number] : 1960 Acct:[id number] Age/Sex: 64 / F ADM Date: 5 Loc: XDS Room: Type: [facility] Attending Dr: Acosta Castro DPM MS Copies to: Acosta Castro DPM, MS~ [...] changes involving the left foot with intraoperative fusionhardware. Suspect minimal lucency surrounding the talar surgical [...] Mays M.D. 06/05/2025 5:41 PM Dictation Location: RADIO-PC-29 Transcribed By: FRANKY 06/05/251740 Dictated By: Néstor Mays MD 06/05/251734 Signed By: 06/05/251740 [facility] Work Phone: XR foot BI 3Von 82-63-9181WB foot BI 3[facility] [place] [address] XRay Report Signed Patient: Rita Cobb MR#: [id number] : 1960 Acct:[id number] Age/Sex: 64 / F ADM Date: 06/05/25 Loc: XDS Room: Type: [facility] Attending Dr: Acosta Castro DPM, MS Copies to: Acosta Castro DPM, MS Ordering Provider: Acosta Castro DPM, MS [...] Mays M.D. 06/05/2025 5:41 PM Dictation Location: RADIO-PC-29 Transcribed By: FRANKY 06/05/251740 Dictated By: Néstor Mays MD 06/05/251734 Signed By: 06/05/25 1741[facility] DnlpkWcV2g (Bld) [Mass fraction]on 04-37-0968Sirzfnadkohcck and review of laboratory resultsAbAtrium Health StanlyLaboratory - Hematology and Cell countson 41-48-6524ZuF3j (Bld) [Mass fraction]8.1 %[facility] CenterMR shoulder RT wo conon 76-56-5376UH shoulder RT wo [facility] [place] [address] [place] [address] MRI Report Signed Patient: Rita Cobb MR#: [id number] : 1960 Acct:[id number] Age/Sex: 64 / F ADM Date: 01/23/25 Loc: [facility] Room: Type: [facility] Attending Dr: Nader Curry DO [...] Timothy Levi M.D.01/26/2025 9:38 AM Dictation Location: [place] [address] Transcribed By: [facility] 01/26/25 0938 Dictated By: Timothy Levi II, MD 01/26/25 0902 Signed By: 01/26/2538[facility] Physician GroupInfluenza virus B Ag [Presence] in Upper respiratory specimen by Rapid immunoassayon 72-96-3071ZGZRG Ag IA.rapid Ql (Nph)Influenza virus B Ag [Presence] in Upper respiratory specimen by Rapid immunoassaySelect Medical Ohiohealth Rehabilitation Hospital - DublinNo Panel Informationon 12-09-2024 Influenza Type A (Rapid)NegativeSelect Medical Ohiohealth Rehabilitation Hospital - DublinPO SARS CoV-2 AntigenNegativeSelect Medical Ohiohealth Rehabilitation Hospital - DublinNo Panel InformationOrdered By: Charan Casey on 94-16-1588DEV (POC)[facility] - DublinRSV (POC) [facility] - DublinX-ray reportOrdered By: Néstor Mays on 64-91-9186Qgwpj reportAULTMAN ALLIANCE [place] [address] XRay Report Signed Patient: Rita Cobb MR#: [id number] : 1960 Acct:[id number] Age/Sex: 64 / F ADM Date: 5 Loc: XDS Room: Type: [facility] Attending Dr: Charan Casey DO Copies [...] NO ACUTE CARDIOPULMONARY ABNORMALITY. Impression dictated by: Nsétor Masy M.D.12/08/2024 3:59 PM Dictation Location: [place] [address] Transcribed By: [facility] 12/08/24 1559 Dictated By: Néstor Mays MD 12/08/24 1524 Signed By: 12/08/24 1559 [facility] Work Phone: XR chest 2V*on 97-08-5022YQ chest 2V*[facility] [place] [address] [place] [address] XRay Report Signed Patient: Rita Cobb MR#: [id number] : 1960 Acct:[id number] Age/Sex: 64 / F ADM Date: 12/08/24 Loc: [facility] Room: Type: [facility] CLI Attending Dr: Charan Casey DO Copies [...] Mays MD 12/08/24 1524 Signed By: 12/08/24 1559[facility] GroupXR shoulder RT min 2V*on 79-76-9219MM shoulder RT min 2V*[facility] [address] [place] [address] XRay Report Signed Patient: Rita Cobb MR#: [id number] : 1960 Acct:[id number] Age/Sex: 63 / F ADM Date: 10/25/24 Loc: [facility] Room: Type: [facility] Attending Dr: Nader Curry DO Copies [...] Ibis Crisostomo M.D.10/25/2024 9:11 AM Dictation Location: RADIO-PC-23 Transcribed By: FRANKY 10/25/24 0911 Dictated By: Ibis Crisostomo MD 10/25/24 0908 Signed By: 10/25/24 0911[facility] CahcbSyX5g (Bld) [Mass fraction]on 57-78-5425Autkpwlemuhsuj and review of laboratory resultsFormerly [facility] CareLaboratory - Hematology and Cell countson 31-16-3661ApD3w (Bld) [Mass fraction]7.6 %[facility] screening mammo BI w/CADon 13-50-0048RQ screening mammo BI w/[facility]ADAULT[facility] [place] [address] [place] [address] Mammography Report Signed Patient: Rita Cobb MR#: [id number] : 1960 Acct:[id number] Age/Sex: 63 / F ADM Date: 09/07/24 Loc: [place] Room: Type: [facility] CL Attending Dr: Referral Self Copies to: Charan [...] Brown Jr., D.O.09/07/2024 9:04 AM Dictation Location: [facility] Transcribed By: FRANKY 09/07/24903 Dictated By: Sudhir Brown Jr, DO 09/07/24899 Signed By: 09/07/24903[facility] GroupAlbumin [Mass/volume] in Serum or Plasma by Bromocresol green (BCG) dye binding methoOrdered By: Elpidio Whipple on 86-14-7157Iqrdcmx BCG dye [Mass/Vol]4.3 g/dL3.5-5.7FSamaritan HospitalAutomated erythrocytes count in urine sediment (number/area)Ordered By: Elpidio Whipple on 52-49-2190NQP Auto (Urine sed) [#/Area]1-2 [HPF]0-4FSamaritan HospitalAutomated leukocytes count in urine sediment (number/area)Ordered By: Elpidio Whipple on 19-54-9727ZNQ Auto (Urine sed) [#/Area] 5-9 [HPF]0-4FSamaritan HospitalBilirubin Test strip Ql (U)Ordered By: Elpidio Whipple on 16-05-0585Jlkwbdbcb Ql (U)NegativeNegativeSelect Medical Ohiohealth Rehabilitation Hospital - DublinCalcium [Mass/volume] in Serum or PlasmaOrdered By: Elpidio Whipple on 85-43-8049Lpqycit [Mass/Vol]9.8 mg/dL8.6-10.3FSamaritan Hospital Carbon dioxide, total [Moles/volume] in Serum or PlasmaOrdered By: Elpidio Whipple on 04-17-8949CG2 [Moles/Vol]30.4 mmol/L21.0-31.0[facility] - DublinChloride [Moles/volume] in Serum or PlasmaOrdered By: Elpidio Whipple on 84-63-9523Pdqezzky [Moles/Vol]103 mmol/Q83-079ZjzcarpbfSelect Medical [facility]health Rehabilitation Hospital - Dublin Color Auto (U)Ordered By: Elpidio Whipple on 58-75-7391Huhju (U)Dark yellowYellow [facility] DublinCreatinine [Mass/volume] in Serum or Plasma Ordered By: Elpidio Whipple on 54-62-6892Qotevrqalu [Mass/Vol]1.19 mg/dL0.60-1.20 [facility] - DublinCreatinine [Mass/volume] in UrineOrdered By: Elpidio Whipple on 41-01-6981Sjmrownohd (U) [Mass/Vol]101.0 mg/dLSelect Medical Ohiohealth Rehabilitation Hospital - DublinComment on above:No reference range establishedErythrocyte distribution width Auto (RBC) [Ratio]Ordered By: Elpidio Whipple on 02-29-2024 Erythrocyte distribution width (RBC) [Ratio]12.9 %11.9-15.3FSamaritan HospitalGlucose [Mass/volume] in Serum or PlasmaOrdered By: Elpidio Whipple on 42-17-1869Vmadzvv [Mass/Vol]164 mg/cG04-088UxsfbfquwSelect Medical [facility] Comment on above:ADA recommended reference rangeRandom Glucose Reference Range is dependent on time and content of last meal. Glucose of more than 200 mg/dL in a nonstressed, ambulatory subject supports the diagnosisof Diabetes Mellitus. Hematocrit Auto (Bld) [Volume fraction]Ordered By: Elpidio Whipple on 02-29-2024 Hematocrit (Bld) [Volume fraction]39.7 %34.0-46.4FSamaritan HospitalHemoglobin [Mass/volume] in BloodOrdered By: Elpidio Whipple on 02-29-2024 Hemoglobin (Bld) [Mass/Vol]13.4 g/dL11.8-15.4FSamaritan Hospital Ketones Auto test strip (U) [Mass/Vol]Ordered By: Elpidio Whipple on 02-29-2024 Ketones (U) [Mass/Vol]NegativeNegativeSelect Medical [facility] Dublin Laboratory - UrinalysisOrdered By: Elpidio Whipple on 95-58-3587Xyriylk casts LM Ql (Urine sed)0-8 [LPF]0-8[facility] - DublinLeukocytes [#/volume] corrected for nucleated erythrocytes in Blood by Automated counOrdered By: Elpidio Whipple on 97-12-5562HKA corrected for nucl RBC Auto (Bld) [#/Vol]4.5 10*3/uL 3.8-11.6FSamaritan HospitalMCH Auto (RBC) [Entitic mass]Ordered By: Elpidio Whipple on 55-23-0899RXU (RBC) [Entitic mass]29.1 pg24.7-34.3FSamaritan HospitalMCHC Auto (RBC) [Mass/Vol]Ordered By: Elpidio Whipple on 94-45-3778HRTT (RBC) [Mass/Vol]33.8 g/dL32.0-35.0[facility] - DublinMCV Auto (RBC) [Entitic vol]Ordered By: Elpidio Whipple on 91-98-7924QBO (RBC) [Entitic vol]86.2 sT89-545QyqxbmjggSelect Medical Ohiohealth Rehabilitation Hospital - DublinMagnesium [Mass/volume] in Serum or PlasmaOrdered By: Elpidio Whipple on 62-13-6032Uxdjrfpdw [Mass/Vol]1.6 mg/dL1.9-2.7FSamaritan HospitalNitrite Test strip Ql (U)Ordered By: Elpidio Whipple on 61-34-1203Ehtmdcf Ql (U)NegativeNegativeSelect Medical Ohiohealth Rehabilitation Hospital - DublinNo Panel InformationOrdered By: Elpidio Whipple on 99-63-1515Qbjwkxasc GFR (CKD-EPI)51.377 mL/MinSelect Medical [facility] Rehabilitation [facility] - Dublin Pharmacy Creatinine Clearance (ChemN/[facility] Parathyrin.intact [Mass/volume] in Serum or PlasmaOrdered By: Elpidio Whipple on 34-67-0466Csmkfstybm.intact [Mass/Vol]53.1 pg/wV95-52AuhztcarsSelect Medical Ohiohealth Rehabilitation Hospital - DublinPhosphate [Mass/volume] in Serum or PlasmaOrdered By: Elpidio Whipple on 25-68-5806Oabkjekyn [Mass/Vol]2.8 mg/dL2.5-4.5FSamaritan Hospital Platelet mean volume Auto (Bld) [Entitic vol]Ordered By: Elpidio Whipple on 13-35-8606Txezfitt mean volume (Bld) [Entitic vol]9.5 fL6.3-10.7FSamaritan HospitalPlatelets Auto (Bld) [#/Vol]Ordered By: Elpidio Whipple on 84-55-7486Okqkkogne (Bld) [#/Vol]174 10*3/hZ565-915EbhgcwtszSelect Medical Ohiohealth Rehabilitation Hospital - DublinPotassium [Moles/volume] in Serum or PlasmaOrdered By: Elpidio Whipple on 79-47-9150Jmnodzdcc [Moles/Vol]4.6 mmol/L3.5-5.1FSamaritan HospitalProtein Auto test strip (U) [Mass/Vol]Ordered By: Elpidio Whipple on 39-34-6635Epgflpp (U) [Mass/Vol]30 mg/dLNegativeSelect Medical Ohiohealth Rehabilitation Hospital - DublinProtein [Mass/volume] in UrineOrdered By: Elpidio Whipple on 39-44-1749Fmbgvsc (U) [Mass/Vol]43 mg/dL0-9[facility] - DublinRBC Auto (Bld) [#/Vol]Ordered By: Elpidio Whipple on 71-43-0131TMQ (Bld) [#/Vol]4.61 10*6/uL 3.60-5.00New[facility] Hospitalerum or plasma anion gap determinationOrdered By: Elpidio Whipple on 42-43-4158Lifvg gap [Moles/Vol]11.2 mmol/L6.0-15.0Newark Hospitalodium [Moles/volume] in Serum or PlasmaOrdered By: Elpidio Whipple on 00-73-5510Tprhyo [Moles/Vol]140 mmol/R213-473 Newark Hospitalpecific gravity Auto test strip (U) [Rel density]Ordered By: Elpidio Whipple on 98-87-8595Kdeetmmx gravity (U) [Rel density] 1.0191.001-1.030Newark Hospitalquamous epithelial cells detection in urine sediment by light microscopyOrdered By: Elpidio Whipple on 96-28-7533Sjeanjsgxb cells.squamous LM Ql (Urine sed)10-19 [HPF]0-2FSamaritan HospitalUrate [Mass/volume] in Serum or PlasmaOrdered By: Elpidio Whipple on 38-19-8865Qiyfa [Mass/Vol]7.1 mg/dL2.3-6.6FSamaritan HospitalUrea nitrogen [Mass/volume] in Serum or PlasmaOrdered By: Elpidio Whipple on 69-15-7677Dykg nitrogen [Mass/Vol]29 mg/dL7-25[facility] Urine bacteria detection by automated methodOrdered By: Elpidio Whipple on 04-37-2786Mhaogpti Auto Ql (U)None seenNone SeenSelect Medical Ohiohealth Rehabilitation Hospital - DublinUrine clarity by refractometry automatedOrdered By: Elpidio Whipple on 11-14-5458Uxdpjgk Refractometry automated (U)ClearClearFcoulee medical center Regional Medical CenterUrine culture routineOrdered By: Elpidio Whipple on 53-61-3413Ohkxayqq identified Cx Nom (U)2 DaysSelect Medical Ohiohealth Rehabilitation Hospital - DublinUrine glucose measurement by automated test strip (mass/volume)Ordered By: Elpidio Whipple on 17-39-4183Nmiwgfb Auto test strip (U) [Mass/Vol]Normal mg/dLNoTrinity Health SystemUrine hemoglobin detection by automated test stripOrdered By: Elpidio Whipple on 20-60-4800Bxiusdmekq Auto test strip Ql (U)NegativeNegative [facility] - DublinUrine leukocyte esterase detection by automated test stripOrdered By: Elpidio Whipple on 84-80-9715Thwxktbay esterase Auto test strip Ql (U)2+NegativeSelect Medical Ohiohealth Rehabilitation Hospital - DublinUrine protein/creatinine ratioOrdered By: Elpidio Whipple on 64-91-1031Svkrify/Creatinine (U) [Ratio]426 mg/g{Cre}0-200[facility] - DublinUrobilinogen Auto test strip (U) [Mass/Vol]Ordered By: Elpidio Whipple on 59-82-1174Juicbvuibmio (U) [Mass/Vol]Normal mg/dLNoTrinity Health SystemVitamin D+Metabolites [Mass/volume] in Serum or PlasmaOrdered By: Elpidio Whipple on 86-84-3855Hkzympi D+Metabolites [Mass/Vol]48.0 ng/lY86-257GkrvaktniSelect Medical Ohiohealth Rehabilitation Hospital - DublinComment on above: VITAMIN D STATUS 25(OH)VITAMIN D RANGE (ng/mL) Deficient <20 Insufficient 20 to <03Dseqqnbxcd82 to 100Reference: Nayeli MF,Hannah [place], Jose GILBERT, et al. Evaluation,treatment, and prevention of vitamin D deficiency; an Endocrine Society clinical practice guideline. JCEM. 2010; 96(7):1911-30.pH Auto test strip (U)Ordered By: Elpidio Whipple on 69-40-8724bY (U)5.5 [pH]5.0-9.0[facility] - DublinRSVon 61-53-8450RQH Ag IA Ql (Unsp spec)NegativeNotapviva Other Alanine aminotransferase [Enzymatic activity/volume] in Serum or PlasmaOrdered By: Charan Casey on 58-62-0599RWH [Catalytic activity/Vol]16 U/L7-52[facility] - DublinAlbumin [Mass/volume] in Serum or Plasma by Bromocresol green (BCG) dye binding methoOrdered By: Charan Casey on 38-21-9868Svpxlnl BCG dye [Mass/Vol]4.2 g/dL3.5-5.7FSamaritan HospitalAlkaline phosphatase [Enzymatic activity/volume] in Serum or PlasmaOrdered By: Charan Casey on 58-84-9274UYU [Catalytic activity/Vol]65 U/L 34-104[facility] - DublinAspartate aminotransferase [Enzymatic activity/volume] in Serum or PlasmaOrdered By: Charan Casey on 89-30-7524INH [Catalytic activity/Vol]16 U/N77-32PtvotpxjeSelect Medical [facility] Rehabilitation [facility] - Dublin Bilirubin.total [Mass/volume] in Serum or PlasmaOrdered By: Charan Casey on 82-98-5767Tuzqzkyzv [Mass/Vol]0.6 mg/dL0.3-1.0[facility] Calcium [Mass/volume] in Serum or PlasmaOrdered By: Charan Casey on 11-26-2023 Calcium [Mass/Vol]9.8 mg/dL8.6-10.3FSamaritan HospitalCarbon dioxide, total [Moles/volume] in Serum or PlasmaOrdered By: Charan Casey on 61-31-1859JL4 [Moles/Vol]34.6 mmol/L21.0-31.0[facility] Chloride [Moles/volume] in Serum or PlasmaOrdered By: Charan Casey on 11-26-2023 Chloride [Moles/Vol]101 mmol/L17-148SflwdasxqSelect Medical [facility]health Rehabilitation Hospital - DublinCholesterol [Mass/volume] in Serum or PlasmaOrdered By: Charan Casey on 77-37-2159Nsehohuqluq [Mass/Vol]140 mg/hA999-182CskarswyySelect Medical Ohiohealth Rehabilitation Hospital - DublinComment on above: Chol less than 200 mg/dl low riskChol 201-239 mg/dl borderline riskChol 240 mg/dl and greater high riskCholesterol in LDL Calc [Mass/Vol]Ordered By: Charan Casey on 47-00-2054Cmqrglfuzjv in LDL [Mass/Vol]56 mg/dL0-100[facility] - DublinComment on above:LDL ATP III CLASSIFICATIONLDL less than 100 mg/dL OptimalLDL 100-129 mg/dL Near or above unswnzfILQ947-354 mg/dL Borderline highLDL 160-189 mg/dL HighLDL greater than 189 mg/dL Very highCholesterol in VLDL Calc [Mass/Vol]Ordered By: Charan Casey on 74-12-6312Swcglquzgcp in VLDL [Mass/Vol]45 mg/dLSelect Medical Ohiohealth Rehabilitation Hospital - DublinCreatinine [Mass/volume] in Serum or PlasmaOrdered By: Charan Casey on 43-66-1029Jihvofdjzk [Mass/Vol]1.25 mg/dL0.60-1.20[facility] - DublinGlobulin Calc (S) [Mass/Vol] Ordered By: Charan Casey on 37-94-5258Ddofhivj (S) [Mass/Vol]2.6 g/dLSelect Medical Ohiohealth Rehabilitation Hospital - DublinGlucose [Mass/volume] in Serum or PlasmaOrdered By: Charan Casey on 47-17-3258Lgsbwhg [Mass/Vol]122 mg/mP88-087KtucdawpzSelect Medical Ohiohealth Rehabilitation Hospital - DublinComment on above:ADA recommended reference rangeRandom Glucose Reference Range is dependent on time and content of last meal. Glucose of more than 200 mg/dL in a nonstressed, ambulatory subject supports the diagnosisof Diabetes Mellitus.No Panel InformationOrdered By: Charan Casey on 06-26-7775Obuhyqawx GFR (CKD-EPI)48.432 mL/MinSelect Medical Ohiohealth Rehabilitation Hospital - DublinPharmacy Creatinine Clearance (ChemN/AFSamaritan HospitalPotassium [Moles/volume] in Serum or PlasmaOrdered By: Charan Casey on 35-11-8722Egbeyjpfb [Moles/Vol]4.6 mmol/L3.5-5.1FSamaritan HospitalProtein [Mass/volume] in Serum or PlasmaOrdered By: Charan Casey on 97-59-2362Gqwhwxv [Mass/Vol]6.8 g/dL6.4-8.9 [facility] Hospitalerum or plasma albumin/globulin mass ratio Ordered By: Charan Casey on 77-39-6590Nqsyhhi/Globulin [Mass ratio]1.6 {ratio} [facility] Hospitalerum or plasma anion gap determinationOrdered By: Charan Casey on 16-76-9782Czkle gap [Moles/Vol]9.0 mmol/L6.0-15.0Newark Hospitalerum or plasma high density lipoprotein (HDL) cholesterol measurementOrdered By: Charan Casey on 25-76-3942Wqloyghbxyy in HDL [Mass/Vol]39 mg/wS83-07EavinbanfSelect Medical Ohiohealth Rehabilitation Hospital - DublinComment on above:HDL CHOL ATP-III CLASSIFICATION Cardiovascular RiskHDL > or equal to 60 mg/dL LOWHDL < 40 mg/dL HIGHSerum or plasma total cholesterol/high density lipoprotein (HDL) cholesterol mass ratOrdered By: Charan Casey on 11-26-2023 Cholesterol.total/Cholesterol in HDL [Mass ratio]3.6 {ratio}<5.0[facility] Hospitalodium [Moles/volume] in Serum or PlasmaOrdered By: Charan Casey on 14-85-1014Kfeiuf [Moles/Vol]140 mmol/I584-810SjwnhhirmSelect Medical Ohiohealth Rehabilitation Hospital - DublinTriglyceride [Mass/volume] in Serum or PlasmaOrdered By: Charan Casey on 65-18-6236Cdwiogvmboju [Mass/Vol]227 mg/dL0-149[facility] Comment on above:TRIG ATP III CLASSIFICATIONTRIG less than 150 mg/dL NormalTRIG 150-199 mg/dL Borderline highTRIG 200-500 mg/dL High TRIG greater than 500 mg/dL Very highStandard traceable to the Center for Disease Conrtrol and Prevention (CDC) test method.Urea nitrogen [Mass/volume] in Serum or PlasmaOrdered By: Charan Casey on 40-92-6272Qbeo nitrogen [Mass/Vol]32 mg/dL7-[facility] - DublinGlucose Glucometer (BldC) [Mass/Vol]Ordered By: Yasmeen Treadwell on 55-02-5594Qpxzywt [Mass/Vol]150 mg/dLSelect Medical Ohiohealth Rehabilitation Hospital - DublinComment on above:Random Glucose Reference Range is dependent on time and content of last meal. Glucose of more than 200 mg/dL in a nonstressed, ambulatory subject supports the diagnosis of Diabetes Mellitus.Albumin [Mass/volume] in Serum or Plasma by Bromocresol green (BCG) dye binding methoOrdered By: Elpidio Whipple on 65-50-4670Jbbdena BCG dye [Mass/Vol]4.5 g/dL3.5-5.7FSamaritan HospitalAutomated erythrocytes count in urine sediment (number/area)Ordered By: Elpidio Whipple on 67-78-0333KSH Auto (Urine sed) [#/Area]None seen [HPF]0-4 [facility] - DublinAutomated leukocytes count in urine sediment (number/area)Ordered By: Elpidio Whipple on 11-65-4295DFE Auto (Urine sed) [#/Area] 1-2 [HPF]0-4FSamaritan HospitalBilirubin Test strip Ql (U)Ordered By: Elpidio Whipple on 09-93-1435Mkitvylmp Ql (U)NegativeNegativeSelect Medical Ohiohealth Rehabilitation Hospital - DublinCalcium [Mass/volume] in Serum or PlasmaOrdered By: Elpidio Whipple on 18-21-9556Aowlslm [Mass/Vol]9.5 mg/dL8.6-10.3FSamaritan Hospital Carbon dioxide, total [Moles/volume] in Serum or PlasmaOrdered By: Elpidio Whipple on 56-94-3433KJ5 [Moles/Vol]29.7 mmol/L21.0-31.0[facility] - DublinChloride [Moles/volume] in Serum or PlasmaOrdered By: Elpidio Whipple on 62-05-8628Eagbirny [Moles/Vol]106 mmol/Y46-603OwpcikdbeSelect Medical [facility] Rehabilitation Hospital - Dublin Color Auto (U)Ordered By: Elpidio Whipple on 00-40-2900Ujnaq (U)Dark yellowYellow [facility] DublinCreatinine [Mass/volume] in Serum or Plasma Ordered By: Elpidio Whipple on 25-14-0640Juwvsofuav [Mass/Vol]1.29 mg/dL0.60-1.20 [facility] DublinCreatinine [Mass/volume] in UrineOrdered By: Elpidio Whipple on 12-54-8065Patdiqvawn (U) [Mass/Vol]87.0 mg/dL11.0-20.0[facility] - DublinErythrocyte distribution width Auto (RBC) [Ratio]Ordered By: Elpidio Whipple on 31-32-5782Dynvfkoevtw distribution width (RBC) [Ratio]13.5 % 11.9-15.3FSamaritan HospitalGlucose [Mass/volume] in Serum or PlasmaOrdered By: Elpidio Whipple on 26-07-7222Ssbhteg [Mass/Vol]97 mg/hQ38-609 [facility] - DublinComment on above:ADA recommended reference rangeRandom Glucose Reference Range is dependent on time and content of last meal. Glucose of more than 200 mg/dL in a nonstressed, ambulatory subject supports the diagnosisof Diabetes Mellitus.Hematocrit Auto (Bld) [Volume fraction]Ordered By: Elpidio Whipple on 31-25-8921Pzegaxbfcq (Bld) [Volume fraction] 42.7 %34.0-46.4FSamaritan HospitalHemoglobin [Mass/volume] in BloodOrdered By: Elpidio Whipple on 31-63-2392Iuamyyvlfm (Bld) [Mass/Vol]14.3 g/dL 11.8-15.4FSamaritan HospitalKetones Auto test strip (U) [Mass/Vol] Ordered By: Elpidio Whipple on 69-17-4905Txvxvtn (U) [Mass/Vol]NegativeNegative [facility] DublinLaboratory - UrinalysisOrdered By: Elpidio Whipple on 25-68-7318Cbovsqa casts LM Ql (Urine sed)0-8 [LPF]0-8[facility] - DublinLeukocytes [#/volume] corrected for nucleated erythrocytes in Blood by Automated counOrdered By: Elpidio Whipple on 88-04-8345ISD corrected for nucl RBC Auto (Bld) [#/Vol]7.7 10*3/uL3.8-11.6FSamaritan Hospital MCH Auto (RBC) [Entitic mass]Ordered By: Elpidio Whipple on 83-06-2127PND (RBC) [Entitic mass]29.1 pg24.7-34.3FSamaritan HospitalMCHC Auto (RBC) [Mass/Vol]Ordered By: Elpidio Whipple on 13-92-1350QXUY (RBC) [Mass/Vol]33.6 g/dL 32.0-35.0[facility] - DublinMCV Auto (RBC) [Entitic vol]Ordered By: Elpidio Whipple on 24-66-1528TGA (RBC) [Entitic vol]86.5 gK72-936PjbfhvmyrSelect Medical Ohiohealth Rehabilitation Hospital - DublinMagnesium [Mass/volume] in Serum or PlasmaOrdered By: Elpidio Zarater on 29-06-8114Wwgzfhcof [Mass/Vol]1.9 mg/dL1.9-2.7FSamaritan HospitalNitrite Test strip Ql (U)Ordered By: Elpidio Whipple on 09-14-2023 Nitrite Ql (U)NegativeNegativeSelect Medical Ohiohealth Rehabilitation Hospital - DublinNo Panel InformationOrdered By: Eplidio Whipple on 47-29-2257Gejgvisgb GFR (CKD-EPI)46.926 mL/MinSelect Medical [facility]health Rehabilitation Hospital - DublinPharmacy Creatinine Clearance (ChemN/A [facility] - DublinParathyrin.intact [Mass/volume] in Serum or PlasmaOrdered By: Elpidio Whipple on 00-81-4888Wbddpeojno.intact [Mass/Vol]133.6 pg/fN93-92ZxprbajqlSelect Medical [facility] Rehabilitation Hospital - DublinPhosphate [Mass/volume] in Serum or PlasmaOrdered By: Elpidio Whipple on 39-58-0289Dobskkclp [Mass/Vol]3.4 mg/dL3.7-7.2 [facility] - DublinPlatelet mean volume Auto (Bld) [Entitic vol] Ordered By: Elpidio Whipple on 54-56-9355Khkbjzck mean volume (Bld) [Entitic vol] 10.0 fL6.3-10.7FSamaritan HospitalPlatelets Auto (Bld) [#/Vol] Ordered By: Elpidio Zarater on 91-04-1739Cujkanuwe (Bld) [#/Vol]193 10*3/xN760-900 [facility] DublinPotassium [Moles/volume] in Serum or Plasma Ordered By: Elpidio Whipple on 57-97-6630Hmrjjtsrf [Moles/Vol]4.7 mmol/L3.5-5.1 [facility] DublinProtein Auto test strip (U) [Mass/Vol]Ordered By: Elpidio Whipple on 98-47-7002Sawljwe (U) [Mass/Vol]NegativeNegativeSelect Medical Ohiohealth Rehabilitation Hospital - DublinProtein [Mass/volume] in UrineOrdered By: Elpidio Silvadir on 42-79-0536Zqaueqa (U) [Mass/Vol]12 mg/dL0-9[facility] - DublinRBC Auto (Bld) [#/Vol]Ordered By: Elpidio Whipple on 33-47-3542OCL (Bld) [#/Vol]4.93 10*6/uL3.60-5.00[facility] Hospitalerum or plasma anion gap determinationOrdered By: Elpidio Whipple on 79-43-9572Dsyhd gap [Moles/Vol]11.0 mmol/L6.0-15.0[facility] Hospitalodium [Moles/volume] in Serum or PlasmaOrdered By: Elpidio Whipple on 76-66-6961Ybnyow [Moles/Vol]142 mmol/L822-971 [facility] Hospitalpecific gravity Auto test strip (U) [Rel density]Ordered By: Elpidio Whipple on 69-16-0480Japrfdnm gravity (U) [Rel density] 1.0201.001-1.030[facility] Hospitalquamous epithelial cells detection in urine sediment by light microscopyOrdered By: Elpidio Whipple on 87-24-4091Qgyrxlbjuh cells.squamous LM Ql (Urine sed)3-4 [HPF]0-2FSamaritan HospitalUrate [Mass/volume] in Serum or PlasmaOrdered By: Elpidio Whipple on 32-42-9452Rumnv [Mass/Vol]6.2 mg/dL2.3-6.6FSamaritan HospitalUrea nitrogen [Mass/volume] in Serum or PlasmaOrdered By: Elpidio Sole on 43-57-2326Xagk nitrogen [Mass/Vol]46 mg/dL7-25[facility] Urine bacteria detection by automated methodOrdered By: Elpidio Whipple on 05-34-4355Rfqoebyj Auto Ql (U)None seenNone SeenSelect Medical Ohiohealth Rehabilitation Hospital - DublinUrine clarity by refractometry automatedOrdered By: Elpidio Whipple on 19-12-8147Bkqpejr Refractometry automated (U)ClearClearFSamaritan HospitalUrine glucose measurement by automated test strip (mass/volume) Ordered By: Eplidio Sole on 29-05-7134Ofomwoh Auto test strip (U) [Mass/Vol] Normal mg/dLNoTrinity Health SystemUrine hemoglobin detection by automated test stripOrdered By: Elpidio Silvadir on 91-01-4138Wznjcpgshp Auto test strip Ql (U)NegativeNegativeSelect Medical Ohio[facility] Rehabilitation Hospital - DublinUrine leukocyte esterase detection by automated test stripOrdered By: Elpidoi Whipple on 09-14-2023 Leukocyte esterase Auto test strip Ql (U)1+NegativeSelect Medical Ohiohealth Rehabilitation Hospital - DublinUrine protein/creatinine ratioOrdered By: Elpidio Sole on 09-14-2023 Protein/Creatinine (U) [Ratio]138 mg/g{Cre}0-200[facility] - DublinUrobilinogen Auto test strip (U) [Mass/Vol]Ordered By: Elpidio Whipple on 44-18-7952Eomzlfjenegs (U) [Mass/Vol]Normal mg/dLNoTrinity Health SystemVitamin D+Metabolites [Mass/volume] in Serum or PlasmaOrdered By: Elpidio Sole on 29-75-9889Zcryfdm D+Metabolites [Mass/Vol]50.6 ng/gX81-187 [facility] - DublinComment on above:VITAMIN D STATUS 25(OH)VITAMIN D RANGE (ng/mL) Deficient <20 Insufficient 20 to <29Hksfgecxyx52 to 100Reference: Nayeli MF,Hannah NC, Jose GILBERT, et al. Evaluation,treatment, and prevention of vitamin D deficiency; an Endocrine Society clinical practice guideline. JCEM. 2010; 96(7):1911-30.pH Auto test strip (U)Ordered By: Elpidio Silvadir on 88-66-1404wY (U)5.5 [pH]5.0-9.0[facility] - DublinUrine 10 SGon 35-17-0686Svdstke DL <= 20 mg/L (U) [Mass/Vol]NegativeNowashington county memorial hospital [employer] Other pH (U)6.0 [pH][place] [employer] Other Urine 10 SGNegativeNowashington county memorial hospital [employer] Other Urine 10 SG1.010Nort [employer] Other Urine 10 SG0.2North [employer] Other Height or Weight NOT Doneon 28-62-4888Oeljg depression screening assessmentNoKind[facility] [employer] DO Work Phone: Fall risk assessmenta) No falls within the last year [facility] [employer] DO Work Phone: Tobacco use status CPHSb) NoMDayton General Hospital [employer] DO Work Phone: Office Visit (Cardiology)on 57-45-5611Vyjuqv-up visit Diagnoses/Problems Assessed CAD (coronary artery disease) [...] any trouble since her angioplasty. She has Kphjstb-Tyyyg-Xwlnb disease and had recent surgery on the [...] and her lipids have been aggressively treated. Assessment/recommendation: 1?CAD status post PCI of the LAD [...] machine patient has been compliant with it. 7?Vdwxtpp-Yrobk-Rdvur joint in the ankles status post recent [...] R U-500 KwikPen 500 UNIT/ML Subcutaneous Solution Pen-injectorADMINISTER 60 UNITS IN THE MORNING AND 30 UNITS IN THE EVENING Insulin Lispro (1 Unit Dial) 100 UNIT/ML Subcutaneous Solution Pen- injectorADMINISTER 5-6 UNITS SUBCUTANEOUSLY IN THE MORNING AND [...] TABLET DAILY. Vitamin D (Ergocalciferol) 1.25 MG (45541 UT) Oral CapsuleTake 1 tablet twice weekly Allergies Medication Erythromycin Base TABS Adverse Reaction; Gatrointestinal upset; Updated By: Adrianna Emanuel; (more content not included)...NormalUH [facility] ClairePOINT OF CARE GLUCOSEon 04-13-2023 Glucose [Mass/Vol]215 mg/dLCritically qzad16-148Php [facility] HospitalComment on above:Performed By: #### POCGLUC ####[facility] [address] [place] [address]DrDerek SotoPROF CHEM 8 (BAS METB)on 03-31-2023 Anion gap [Moles/Vol]9.6 mmol/LNormalCleveland ClinicComment on above: Performed By: #### BMP ####[facility] [address] [place] [address]DrBalaji SotoCalcium [Mass/Vol]10.3 mg/dLCritically high8.5-10.1The [facility] HospitalComment on above:Performed By: #### BMP ####[facility] [address] [place], [place] [address]Dr. Tere ChangChloride [Moles/Vol]103 mmol/MJylmym53-096Jqq [facility] Comment on above:Performed By: #### BMP ####[facility] [address] [place], [place] [address]Dr.Tere ChangCO2 [Moles/Vol]31.0 mmol/L Ofkucc67.0-32.0The [facility] HospitalComment on above:Performed By: #### BMP ####[facility] Tz[address] [place], [place] [address]Dr. Tere ChangCreatinine [Mass/Vol]1.48 mg/dLCritically high0.55-1.02The [facility] HospitalComment on above:Performed By: #### BMP ####[facility] Or[address] [place], [place] [address]Dr.Tere ChangEGFR-AF NXLSOTAA73 mL/min/1.50v0Hnobdpcske low>=60The [facility] HospitalComment on above: Performed By: #### BMP ####[facility] [address] [place], [place] [address]Dr.Tere ChangEGFR-NON AF IRNLXQZQ16 mL/min/1.73m2 Critically low>=60The [facility] HospitalComment on above:Performed By: #### BMP ####[facility] [address] [place], [place] [address]Dr. Tere ChangGlucose [Mass/Vol]173 mg/dLCritically qqft68-434Ixz [facility] Comment on above:Performed By: #### BMP ####[facility] [address] [place], [place] [address]Dr.Tere ChangPotassium [Moles/Vol]4.6 mmol/LNormal3.5-5.1The [facility] HospitalComment on above:Performed By: #### BMP ####[facility] [address] [place], [place] [address]Dr. Tere ChangSodium [Moles/Vol]139 mmol/EYeanhk293-459Mvi [facility] HospitalComment on above:Performed By: #### BMP ####[facility] [address] [place], [place] [address]Ib.Tere ChangUrea nitrogen [Mass/Vol]63.0 mg/dL Critically high7.0-18.0The [facility] HospitalComment on above:Performed By: #### BMP ####[facility] [address] [place], [place] [address]Mt. Tere ChangUrea nitrogen/Creatinine [Mass ratio]42.6 mg/mgNoFirelands Regional Medical CenterComment on above:Performed By: #### BMP ####[facility] [address] [place], [place] [address]Of.Tere ChangCT FOOT LT WO CONon 61-46-8652XQ FOOT LT WO CONEXAMINATION: CT FOOT LT WO CON HISTORY: Charcot [...] Electronically authenticated by: BLANKA OLGUIN Date: 2023-03-23 14:59[facility] HospitalAlbumin [Mass/volume] in Serum or Plasma by Bromocresol green (BCG) dye binding methoOrdered By: Elpidio Whipple on 00-65-8083Tcjctzu BCG dye [Mass/Vol]4.7 g/dL3.5-5.7FSamaritan HospitalAutomated erythrocytes count in urine sediment (number/area)Ordered By: Elpidio Whipple on 31-04-7397YHN Auto (Urine sed) [#/Area]None seen [HPF]0-4FSamaritan Hospital Automated leukocytes count in urine sediment (number/area)Ordered By: Elpidio Whipple on 60-16-2851JMN Auto (Urine sed) [#/Area]5-9 [HPF]0-4FSamaritan HospitalBilirubin Test strip Ql (U)Ordered By: Elpidio Whipple on 03-06-2023 Bilirubin Ql (U)NegativeNegativeSelect Medical [facility]health Rehabilitation Hospital - DublinCalcium [Mass/volume] in Serum or PlasmaOrdered By: Elpidio Whipple on 17-71-8587Plicpst [Mass/Vol]10.2 mg/dL8.6-10.3FSamaritan HospitalCarbon dioxide, total [Moles/volume] in Serum or PlasmaOrdered By: Elpidio Whipple on 86-80-8014WT6 [Moles/Vol]28.4 mmol/L21.0-31.0[facility] - DublinChloride [Moles/volume] in Serum or PlasmaOrdered By: Elpidoi Whipple on 95-13-0366Gkbuzmut [Moles/Vol]104 mmol/I35-567QztutykajSelect Medical [facility] Rehabilitation Hospital - DublinColor Auto (U) Ordered By: Elpidio Whipple on 29-36-5776Zvkdl (U)Dark yellowYellowSelect Medical [facility]health Rehabilitation Hospital - DublinCreatinine [Mass/volume] in Serum or PlasmaOrdered By: Elpidio Whipple on 54-96-3114Ubocngsgne [Mass/Vol]1.22 mg/dL0.60-1.20[facility] DublinCreatinine [Mass/volume] in UrineOrdered By: Elpidio Whipple on 69-10-3347Zvuopmdbct (U) [Mass/Vol]98.0 mg/dLSelect Medical [facility]health Rehabilitation Hospital - DublinComment on above:No reference range establishedErythrocyte distribution width Auto (RBC) [Ratio]Ordered By: Elpidio Whipple on 45-92-0169Vxtzwacxdqs distribution width (RBC) [Ratio]13.8 %11.9-15.3FSamaritan Hospital Glucose [Mass/volume] in Serum or PlasmaOrdered By: Elpidio Whipple on 03-06-2023 Glucose [Mass/Vol]101 mg/tL64-656VvigkvigcSelect Medical [facility]health Rehabilitation Hospital - DublinComment on above:ADA recommended reference rangeRandom Glucose Reference Range is dependent on time and content of last meal. Glucose of more than 200 mg/dL in a nonstressed, ambulatory subject supports the diagnosisof Diabetes Mellitus. Hematocrit Auto (Bld) [Volume fraction]Ordered By: Elpidio Whipple on 03-06-2023 Hematocrit (Bld) [Volume fraction]38.1 %34.0-46.4FSamaritan HospitalHemoglobin [Mass/volume] in BloodOrdered By: Elpidio Whipple on 03-06-2023 Hemoglobin (Bld) [Mass/Vol]12.7 g/dL11.8-15.4FSamaritan Hospital Ketones Auto test strip (U) [Mass/Vol]Ordered By: Elpidio Whipple on 03-06-2023 Ketones (U) [Mass/Vol]NegativeNegativeSelect Medical [facility] Laboratory - UrinalysisOrdered By: Elpidio Whipple on 09-46-3228Euxzqjo casts LM Ql (Urine sed)0-8 [LPF]0-8[facility] - DublinLeukocytes [#/volume] corrected for nucleated erythrocytes in Blood by Automated counOrdered By: Elpidio Whipple on 75-04-7619PFG corrected for nucl RBC Auto (Bld) [#/Vol]5.4 10*3/uL 3.8-11.6FMcKitrick HospitalH Auto (RBC) [Entitic mass]Ordered By: Elpidio Whipple on 02-85-1671GKX (RBC) [Entitic mass]28.1 pg24.7-34.3FSamaritan HospitalMCHC Auto (RBC) [Mass/Vol]Ordered By: Elpidio Whipple on 67-80-7926HCQH (RBC) [Mass/Vol]33.3 g/dL32.0-35.0[facility] - DublinMCV Auto (RBC) [Entitic vol]Ordered By: Elpidio Whipple on 20-91-4230JMW (RBC) [Entitic vol]84.5 cD26-656EydyepavdSelect Medical [facility]health Rehabilitation Hospital - DublinMagnesium [Mass/volume] in Serum or PlasmaOrdered By: Elpidio Whipple on 14-32-1710Zgnkihlzg [Mass/Vol]1.5 mg/dL1.9-2.7FSamaritan HospitalNitrite Test strip Ql (U)Ordered By: Elpidio Whipple on 20-88-4237Skdwsjc Ql (U)NegativeNegativeSelect Medical [facility] Rehabilitation Hospital - DublinNo Panel InformationOrdered By: Elpidio Whipple on 68-08-5942Kuxlvkrbx GFR (CKD-EPI)50.176 mL/MinSelect Medical [facility] Pharmacy Creatinine Clearance (ChemN/[facility] Parathyrin.intact [Mass/volume] in Serum or PlasmaOrdered By: Elpidio Whipple on 85-82-7402Nzwugxapjr.intact [Mass/Vol]43.8 pg/wB12-29UgziwltgtSelect Medical [facility]health Rehabilitation Hospital - DublinPhosphate [Mass/volume] in Serum or PlasmaOrdered By: Elpidio Whipple on 59-28-1365Pejbnggak [Mass/Vol]4.3 mg/dL3.7-7.2FSamaritan Hospital Platelet mean volume Auto (Bld) [Entitic vol]Ordered By: Elpidio Whipple on 41-57-1972Ndajhghd mean volume (Bld) [Entitic vol]8.7 fL6.3-10.7FSamaritan HospitalPlatelets Auto (Bld) [#/Vol]Ordered By: Elpidio Whipple on 43-08-3570Vchyrwgug (Bld) [#/Vol]191 10*3/wJ368-674VvtqlhcmnSelect Medical [facility] Rehabilitation Hospital - DublinPotassium [Moles/volume] in Serum or PlasmaOrdered By: Elpidio Whipple on 54-57-5124Kjotrhabe [Moles/Vol]4.0 mmol/L3.5-5.1FSamaritan HospitalProtein Auto test strip (U) [Mass/Vol]Ordered By: Elpidio Whipple on 74-67-0588Uqquaco (U) [Mass/Vol]NegativeNegativeSelect Medical [facility] Rehabilitation Hospital - DublinProtein [Mass/volume] in UrineOrdered By: Elpidio Whipple on 82-97-8068Taxkpvp (U) [Mass/Vol]8 mg/dL0-9[facility] - DublinRBC Auto (Bld) [#/Vol] Ordered By: Elpidio Whipple on 88-73-5119SMZ (Bld) [#/Vol]4.51 10*6/uL3.60-5.00 [facility] Hospitalerum or plasma anion gap determinationOrdered By: Elpidio Whipple on 27-47-0197Lujlb gap [Moles/Vol]12.6 mmol/L6.0-15.0[facility] Hospitalodium [Moles/volume] in Serum or PlasmaOrdered By: Elpidio Whipple on 01-93-8767Kdsvsh [Moles/Vol]141 mmol/G884-520WazoxukahNewark Hospitalpecific gravity Auto test strip (U) [Rel density]Ordered By: Elpidio Whipple on 81-06-1727Ghwysmlv gravity (U) [Rel density]1.0171.001-1.030 [facility] Hospitalquamous epithelial cells detection in urine sediment by light microscopyOrdered By: Elpidio Whipple on 84-87-8590Kafpvlkvxl cells.squamous LM Ql (Urine sed)5-9 [HPF]0-2FSamaritan Hospital Urate [Mass/volume] in Serum or PlasmaOrdered By: Elpidio Whipple on 56-75-1438Ybamu [Mass/Vol]6.7 mg/dL2.3-6.6FSamaritan HospitalUrea nitrogen [Mass/volume] in Serum or PlasmaOrdered By: Elpidio Whipple on 38-72-9437Rpgy nitrogen [Mass/Vol]37 mg/dL7-25[facility] - DublinUrine bacteria detection by automated methodOrdered By: Elpidio Whipple on 24-01-9571Dryyuimx Auto Ql (U)None seenNone SeenSelect Medical Ohiohealth Rehabilitation Hospital - DublinUrine clarity by refractometry automatedOrdered By: Elpidio Whipple 31-70-5605Hilveso Refractometry automated (U)ClearClearFSamaritan HospitalUrine culture routineOrdered By: Elpidio Whipple on 14-95-2171Giskcmcz identified Cx Nom (U)2 DaysSelect Medical [facility]health Rehabilitation Hospital - DublinUrine glucose measurement by automated test strip (mass/volume)Ordered By: Elpidio Whipple on 30-89-9594Eqspxcf Auto test strip (U) [Mass/Vol]Normal mg/dLNoTrinity Health SystemUrine hemoglobin detection by automated test stripOrdered By: Elpidio Whipple on 87-62-1094Nnqxphxwwr Auto test strip Ql (U)NegativeNegativeSelect Medical [facility]health Rehabilitation Hospital - DublinUrine leukocyte esterase detection by automated test stripOrdered By: Elpidio Whipple on 69-69-8322Bshfhaeoa esterase Auto test strip Ql (U)2+Negative [facility] - DublinUrine protein/creatinine ratioOrdered By: Elpidio Whipple on 55-16-4861Qchewee/Creatinine (U) [Ratio]82 mg/g{Cre}0-200[facility] - DublinUrobilinogen Auto test strip (U) [Mass/Vol]Ordered By: Elpidio Whipple on 42-45-8468Toohveowsxkf (U) [Mass/Vol]Normal mg/dLNoTrinity Health SystemVitamin D+Metabolites [Mass/volume] in Serum or Plasma Ordered By: Elpidio Whipple on 31-08-1420Bvytmlt D+Metabolites [Mass/Vol]46.0 ng/mL 30-100[facility] - DublinComment on above:VITAMIN D STATUS 25(OH)VITAMIN D RANGE (ng/mL) Deficient <20 Insufficient 20 to <99Bllwempcfy84 to 100Reference: Nayeli MF,Hannah NC, Jose GILBERT, et al. Evaluation,treatment, and prevention of vitamin D deficiency; an Endocrine Society clinical practice guideline. JCEM. 2010; 96(7):1911-30.pH Auto test strip (U)Ordered By: Elpidio Whipple on 95-03-2233mR (U)5.5 [pH]5.0-9.0[facility] - DublinXR FOOT LAURA MIN 3 VIEWSon 63-82-4548JQ FOOT LAURA MIN 3 VIEWSEXAMINATION: XR FOOT LAURA MIN 3 VIEWS HISTORY: [...] Electronically authenticated by: BRODERICK FLOR Date: 2023-02-17 14:34NoHolzer [facility] AUTO DIFFon 84-59-3071IBZR #0.0 103/ulNormal0.0-0.1C[facility] ClinicComment on above:Performed By: #### CBC #### [facility] [address] [place] [address] Dr. Tere SotoBasophils/100 WBC (Bld)0.6 %Normal0.2-2.0[facility] Comment on above:Performed By: #### CBC #### [facility] [address] [place] [address] Dr. Tere Barksdale #0.1 103/ulNormal0.0-0.7ThTuscarawas HospitalComment on above: Performed By: #### CBC #### [facility] [address] [place] [address] Dr. Tere Mendezosinophils/100 WBC (Bld)2.9 %Normal0.9-7.0[facility] Comment on above:Performed By: #### CBC #### [facility] [address] [place] [address] Dr. Yilan ChangErythrocyte distribution width (RBC) [Ratio]13.2 %Mdhaha18.0-15.0 The [facility] HospitalComment on above:Performed By: #### CBC #### [facility] [address] [place] [address] Dr. Tere SotoHematocrit (Bld) [Volume fraction]39.0 %Bvwfse14.0-48.0The [facility] HospitalComment on above:Performed By: #### CBC #### [facility] [address] [place] [address] Dr. Tere SotoHemoglobin (Bld) [Mass/Vol]13.0 g/aIHbzhte05.0-16.0The [facility] HospitalComment on above:Performed By: #### CBC #### [facility] [address] [place] [address] Dr. Tere Carolina #0.01 10e3/ulNormal0.00-0.03The [facility] HospitalComment on above:Performed By: #### CBC #### [facility] [address] [place] [address] Dr. Tere Carolina %0.2 %Normal0.0-0.5The [facility] HospitalComtrinity health livonia on above: Performed By: #### CBC #### [facility] [address] [place] [address] Dr. Tere MendietaH #2.1 103/ulNormal1.2-3.8The [facility] HospitalComment on above:Performed By: #### CBC #### [facility] [address] [place] [address] Dr. Tere Escamillamphocytes/100 WBC (Bld)42.6 %Qiqkzf52.5-60.0The [facility] HospitalComment on above:Performed By: #### CBC #### [facility] [address] [place] [address] Dr. Tere SmithUAL DIFF REQNONormalThe [facility] HospitalComment on above: Performed By: #### CBC #### [facility] [address] [place] [address] Dr. Tere Lomeli (RBC) [Entitic mass]28.4 vxIckcka62.7-34.0The [facility] HospitalComment on above:Performed By: #### CBC #### [facility] [address] [place] [address] Dr. Tere Lomeli (RBC) [Mass/Vol]33.3 g/cHDnaxvp69.9-35.2The [facility] HospitalComment on above:Performed By: #### CBC #### [facility] [address] [place] [address] Dr. Tere Lomeli (RBC) [Entitic vol]85.2 uCIezkgj47.0-99.0The [facility] HospitalComment on above:Performed By: #### CBC #### [facility] [address] [place] [address] Dr. Tere Tsai #0.3 103/ulNormal0.3-0.8The [facility] HospitalComment on above:Performed By: #### CBC #### [facility] [address] [place] [address] Dr. Tere Hillocytes/100 WBC (Bld)6.8 %Normal1.7-12.0The [facility] Comment on above:Performed By: #### CBC #### [facility] [address] [place] [address] Dr. Tere Green #2.3 103/ulNormal1.4-6.5The [facility] HospitalComment on above:Performed By: #### CBC #### [facility] [address] [place] [address] Dr. Tere Velezutrophils/100 WBC (Bld)46.9 %Kdfnxb24.0-75.0The [facility] HospitalComment on above:Performed By: #### CBC #### [facility] [address] [place] [address] Dr. Tere Hernandezlet mean volume (Bld) [Entitic vol]11.3 fLNormal9.5-13.5The [facility] HospitalComment on above:Performed By: #### CBC #### [facility] [address] [place] [address] Dr. Tere SotoPLT183 103/imBjomok568-134Ybv [facility] HospitalComment on above: Performed By: #### CBC #### [facility] [address] [place] [address] Dr. Tere SotoRBC4.58 106/ulNormal4.20-5.40The [facility] HospitalComment on above:Performed By: #### CBC #### [facility] [address] [place] [address] Dr. Tere SotoWBC4.8 103/ulNormal4.0-11.0The [facility] HospitalComment on above: Performed By: #### CBC #### [facility] [address] [place] [address] Dr. Tere Rodriguez-19 PCR (CVDTBH)on 58-16-5292TKPE-CoV-2 (COVID-19) RNA AHMET+probe Ql (Unsp spec)Not detectedNormalNOT DETECTEDThe [facility] Comment on above:Result Comment: This test is not yet approved or cleared by the [place] FDA. When there are no FDA-approved or cleared tests available, and other criteria are met, FDA can make tests available under an emergency access mechanism called an Emergency Use Authorization (EUA). The EUA for this test is supported by the [place] of Health and Human Service's (HHS's) declaration that circumstances exist to justify the emergency use of in vitro diagnostics for the detection and/or diagnosis of the virus that causes COVID- 19. This EUA will remain in effect (meaning [...] of clinical signs and symptoms consistent with SARS-CoV-2.Performed By: #### CVDTBH #### [facility] [address] [place] [address] Dr. Tere DarnellF CHEM 8 (BAS METB)on 96-24-2474Ivnlh gap [Moles/Vol]13.6 mmol/LNormalThe [facility] HospitalComment on above:Performed By: #### BMP #### [facility] [address] [address] [address] Tere SotoCalcium [Mass/Vol]9.6 mg/dLNormal8.5-10.1The [facility] Comment on above:Performed By: #### BMP #### [facility] [address] [address] [address] Tere SotoChloride [Moles/Vol]103 mmol/XRvqfmz08-753Rqv [facility] Comment on above:Performed By: #### BMP #### [facility] [address] [place] [address] Dr. Tere SotoCO2 [Moles/Vol]28.9 mmol/EEvlbse02.0-32.0The [facility] Comment on above:Performed By: #### BMP #### [facility] [address] [address] [address] Tere SotoCreatinine [Mass/Vol]1.25 mg/dLCritically high0.55-1.02The [facility] HospitalComment on above:Performed By: #### BMP #### [facility] [address] [place] [address] Dr. Carranza ChangEGFR-AF ZSFJHMGY02 mL/min/1.97r1Coxsxwcrrk low>=60The [facility] HospitalComment on above:Performed By: #### BMP #### [facility] [address] [place] [address] Dr. Tere MendezGFR-NON AF WFSZZJZM94 mL/min/1.82e4Zysqzbjrug low>=60The [facility] HospitalComment on above:Performed By: #### BMP #### [facility] [address] [place] [address] Dr. Tere SotoGlucose [Mass/Vol]121 mg/dLCritically msnq82-457Qkt [facility] HospitalComment on above:Performed By: #### BMP #### [facility] [address] [address] [address] Tere SotoPotassium [Moles/Vol]4.5 mmol/LNormal3.5-5.1The [facility] Comment on above:Performed By: #### BMP #### [facility] [address] [address] [address] Tere SotoSodium [Moles/Vol]141 mmol/VJuzhek554-665Cyf [facility] Comment on above:Performed By: #### BMP #### [facility] [address] [address] [address] Tere SotoUrea nitrogen [Mass/Vol]43.0 mg/dLCritically high7.0-18.0The [facility] HospitalComment on above:Performed By: #### BMP #### [facility] [address] [address] [address] Tere SotoUrea nitrogen/Creatinine [Mass ratio]34.4 mg/mgNoBlanchard Valley Health System Bluffton Hospitale [facility] HospitalComment on above:Performed By: #### BMP #### [facility] [address] [address] [address] Tere HumphriesIMEmarisela 33-09-2955SAH Coag (PPP) [Relative time]{INR}NormalThe [facility] HospitalComment on above:Performed By: #### PT, PTT ####[facility] [address] [address]Dr. Tere Seaman GUIDELINESSEE BELOWMercy Health Lorain HospitalComment on above:Result Comment: DESIRED INR: 2.0 - 3.0 CONDITIONS NOT LISTED BELOW 2.5 - 3.5 FOR PROSTHETIC HEART VALVE REPLACEMENT 2.5 - 3.5 RECURRENT THROMBOSISPerformed By: #### PT, PTT ####[facility] [address] [address]Dr. Tere SotoPT Coag (PPP) [Time]9.8 sNormal9.0-11.6The [facility] HospitalComment on above:Performed By: #### PT, PTT ####[facility] [address] [address]Dr. Tere Cartagena 96-87-1860aNIC Coag (Bld) [Time]26.5 qTqgurw16.3-36.2C[facility] ClinicComment on above:Performed By: #### PT, PTT ####[facility] [address] [place], [place] [address]JcDerek Carranza ChangCT FOOT LT WO CONon 14-97-6750IJ FOOT LT WO CONEXAMINATION: CT FOOT LT WO CON HISTORY: Charcot [...] Electronically authenticated by: BRODERICK FLOR Date: 2022-11-26 16:36[facility] HospitalXR ANKLE LAURA MIN 3 VIEWSon 19-40-0733KA ANKLE LAURA MIN 3 VIEWS EXAMINATION: XR [...] Electronically authenticated by: BLANKA OLGUIN Date: 2022-11-13 06:32[facility] Centerice [facility] (Cardiology)on 49-67-8339Ggtrbn-up visit Diagnoses/Problems Assessed CAD (coronary artery disease) (414.00) (I25.10) Essential hypertension (401.9) (I10) Hyperlipidemia (272.4) (E78.5) 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 (V45.82) (Z95.5) LAD February 2022 Diabetes mellitus (250.00) (E11.9) Obstructive sleep apnea syndrome (327.23) (G47.33) Never a smoker Class 2 obesity with body mass index (BMI) of 36.0 to 36.9 in adult (278.00,V85.36) (E66.9,Z68.36) 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) Orders CAD (coronary artery [...] Aminotransferase, Serum; Status:Active - Retrospective Authorization; Requested for:88Iut9590 09:18AM; AST; Status:Active - Retrospective Authorization; Requested for:10Feb2023 09:18AM; Lipid Panel; Status:Active - Retrospective Authorization; Requested for:41Qxw5087 09:18AM; Class 2 obesity with body mass index (BMI) of 36.0 to 36.9 in adult Healthy Weight Tips; Status:Complete - Retrospective Authorization; Done: [id number] Some eating tips that can help you lose weight.; Status:Complete - Retrospective Authorization; Done: [id number] SocHx: Never a smoker Tobacco Use Screening; Status:Complete; Done: [id number] Patient Instructions Please bring all medicines, vitamins, [...] Since her last visit she has developed Mikkxkl-Vaeqk-Bbncn joint in the left foot and is planning surgery next month. Cardiac wiseshe has remained symptoms free. Recent lab data were reviewed from July 2022. LDL remains ijft225 mg/dL. She has been only on Lovaza but no statin. She is willing to try small dose of rosuvastatin 3 days weekly to see if she can tolerate it and could impact her LDL cholesterol. Her weight is down several pounds from last visit which is encouraging. Her diabetes is under control A1c 7.0. Assessment/recommendation: 1?CAD status post PCI of the LAD [...] machine patient has been compliant with it. 7?Thzkvng-Crwdf-Pgtaa joint in the left ankle and need [...] Nitroglycerin 0.4 MG Subli (more content not included)...NormalUH Touchworks Culture, MRSA Screenon 86-71-1826Xawtuwh, MRSA ScreenCulture, MRSA Screen-: Methicillin resistant Staph aureus not isolatedNormalSLovell General HospitalHgb A1Con 65-13-2330FwA9y (Bld) [Mass fraction]7.1 %High4.0-5.6Marlborough Hospitaledimentation Rateon 59-16-4855Xmlugjqbszgnm Rate44 mm/Hr High0-20SLovell General HospitalC-Reactive Proteinon 96-15-6572L-Reactive Protein0.4 mg/dLNormal0.0-0.4SLovell General HospitalCBC With Platelet and Differentialon 27-73-5547Vbk Imm Granulocytes0.01 E9/LNormalBoston Lying-In HospitalAbsolute Basophils0.05 E9/LNormal0.00-0.20SLovell General HospitalAbsolute Eosinophils0.15 E9/LNormal0.05-0.50[facility] Absolute Lymphocytes2.20 E9/LNormal1.50-4.00[facility] Absolute Monocytes0.35 E9/LNormal0.10-0.95[facility]-In HospitalAbsolute Neutrophils1.88 E9/LNormal1.80-7.30SLovell General HospitalBasophils/100 WBC (Bld)1.1 %Normal0.0-2.0[facility] Lying-In HospitalEosinophils/100 WBC (Bld)3.2 %Normal0.0-6.0[facility]ying-In HospitalHematocrit (Bld) [Volume fraction]36.9 %Einndk97.0-48.0[facility] Lying-In HospitalHemoglobin (Bld) [Mass/Vol]12.4 g/fHYiqpou79.5-15.5SLovell General HospitalImm Granulocytes 0.2 %Normal0.0-5.0[facility] Lying-In HospitalLymphocytes/100 WBC (Bld)47.4 % High20.0-42.0[facility] Lying-In HospitalMCH (RBC) [Entitic mass]29.7 pgNormal 26.0-35.0[facility] Lying-In HospitalMCHC33.6 %Hdiais20.0-34.5SLovell General HospitalMCV (RBC) [Entitic vol]88.3 cOVzfqjg16.0-99.9Boston Lying-In HospitalMonocytes/100 WBC (Bld)7.5 %Normal2.0-12.0[facility] Neutrophils/100 WBC (Bld)40.6 %Low43.0-80.0[facility] Lying-In HospitalPlatelet Mwrko781 E9/PFytcnq032-445OdzcdBoston Lying-In HospitalPlatelet mean volume (Bld) [Entitic vol]11.7 fLNormal7.0-12.0[facility]ying-In HospitalRBC4.18 E12/LNormal3.50-5.50[facility] L[facility]-In HospitalRDW13.3 qIJibsqi41.5-15.0[facility]-In HospitalWBC4.6 E9/LNormal4.5-11.5SLovell General Hospital Comprehensive Metabolic Panelon 76-75-7908Qetdabs [Mass/Vol]4.3 g/dLNormal 3.5-5.2SLovell General HospitalALP [Catalytic activity/Vol]71 U/LNormal 35-104Boston Lying-In HospitalALT [Catalytic activity/Vol]12 U/LNormal0-32 [facility]ying-In HospitalAnion gap [Moles/Vol]10 mmol/LNormal7-16SLovell General HospitalAST [Catalytic activity/Vol]19 U/LNormal0-31[facility]ying-In HospitalBilirubin [Mass/Vol]0.3 mg/dLNormal0.0-1.2SLovell General HospitalCalcium [Mass/Vol]10.3 mg/dLHigh8.6-10.2SLovell General HospitalChloride [Moles/Vol]103 mmol/NGmbdtw12-171RbmxvBoston Lying-In HospitalCO2 [Moles/Vol]27 mmol/HDdvyws17-35MgmaeBoston Lying-In HospitalCreatinine [Mass/Vol]1.2 mg/dLHigh0.5-1.0[facility]ying-In HospitalGFR/1.73 sq M.predicted among non-blacks MDRD (S/P/Bld) [Vol rate/Area]51 mL/min/{1.73_m2} Normal>=60Boston Lying-In HospitalComment on above:Result Comment: Pediatric calculator link https://www.kidney.org/professionals/kdoqi/gfr_calculatorped Effective Sep 01, 2022 [...] or following therapy that affects renal tubular secretion.Glucose [Mass/Vol]111 mg/dLHigh 74-99[facility]ying-In HospitalPotassium [Moles/Vol]4.6 mmol/LNormal3.5-5.0 [facility] HospitalProtein [Mass/Vol]7.3 g/dLNormal6.4-8.3SKenmore Hospitalodium [Moles/Vol]140 mmol/ZRawbuc451-908BvnkxBoston Lying-In HospitalUrea nitrogen [Mass/Vol]30 mg/dLHigh6-23SaPeter Bent Brigham HospitalAlbumin [Mass/volume] in Serum or PlasmaOrdered By: Charan Casey on 78-93-7646Ydgknzf [Mass/Vol]3.9 g/dL3.2-5.5FSamaritan Hospital Automated erythrocytes count in urine sediment (number/area)Ordered By: Elpidio Whipple on 34-54-1242BHP Auto (Urine sed) [#/Area]0-1 [HPF]0-4FSamaritan HospitalAutomated leukocytes count in urine sediment (number/area)Ordered By: Elpidio Whipple on 72-96-9827HKO Auto (Urine sed) [#/Area]None seen [HPF]0-4 [facility] DublinBasophils Auto (Bld) [#/Vol]Ordered By: Charan Casey on 14-71-5088Cnacsmnoj (Bld) [#/Vol]0.1 10*3/uL0.0-0.2FSamaritan HospitalBasophils/100 WBC Auto (Bld)Ordered By: Charan Casey on 08-13-2022 Basophils/100 WBC (Bld)1.0 %.[facility] - DublinBilirubin Test strip Ql (U)Ordered By: Elpidio Whipple on 30-47-4489Uyfylrzcg Ql (U)Negative NegativeSelect Medical Ohiohealth Rehabilitation Hospital - DublinCholesterol [Mass/volume] in Serum or PlasmaOrdered By: Charan Casey on 88-69-8153Adwpahsyrwr [Mass/Vol]170 mg/eY174-466 [facility] - DublinComment on above:Chol less than 200 mg/dl low riskChol 201-239 mg/dl borderline riskChol 240 mg/dl and greater high risk Cholesterol in LDL Calc [Mass/Vol]Ordered By: Charan Casey on 08-13-2022 Cholesterol in LDL [Mass/Vol]101 mg/dL0-100[facility] Comment on above:LDL ATP III CLASSIFICATIONLDL less than 100 mg/dL OptimalLDL 100-129 mg/dL Near or above iddoyaoIKI447-516 mg/dL Borderline highLDL 160-189 mg/dL HighLDL greater than 189 mg/dL Very highCholesterol in VLDL Calc [Mass/Vol]Ordered By: Charan Casey on 56-68-5822Qjeyuduawfm in VLDL [Mass/Vol]41 mg/dLSelect Medical Ohiohealth Rehabilitation Hospital - DublinColor Auto (U)Ordered By: Elpidio Whipple on 06-24-2655Dmrqi (U)Dark yellowYellowSelect Medical Ohiohealth Rehabilitation Hospital - DublinCreatinine [Mass/volume] in UrineOrdered By: Elpidio Whipple on 21-05-2683Zvsgsstaux (U) [Mass/Vol]127.6 mg/dLSelect Medical Ohiohealth Rehabilitation Hospital - DublinComment on above:No reference range establishedCreatinine and Glomerular filtration rate.predicted panel (S/P/Bld)Ordered By: Charan Casey on 96-42-8927Dvjfhotwoo [Mass/Vol]1.41 mg/dL0.44-1.03[facility] - DublinEosinophils Auto (Bld) [#/Vol] Ordered By: Charan Casey on 55-82-8554Uyalgkxqbmy (Bld) [#/Vol]0.1 10*3/uL0.0-0.45 [facility] - DublinEosinophils/100 WBC Auto (Bld)Ordered By: Charan Casey on 52-81-5381Dbkqzuhkzab/100 WBC (Bld)1.7 %.[facility] - DublinErythrocyte distribution width Auto (RBC) [Ratio]Ordered By: Charan Casey on 72-15-9583Eunoadviszp distribution width (RBC) [Ratio]13.1 %11.9-15.3FSamaritan HospitalEstimated glomerular filtration rate (GFR) non- AmericanOrdered By: Charan Casey on 58-35-4570RAL/1.73 sq M.predicted among non- blacks MDRD (S/P/Bld) [Vol rate/Area]38 mL/MinSelect Medical [facility]health Rehabilitation Hospital - Dublin Globulin Calc (S) [Mass/Vol]Ordered By: Charan Casey on 56-85-4823Qwnjubmr (S) [Mass/Vol]3.1 g/dLSelect Medical Ohiohealth Rehabilitation Hospital - DublinHematocrit Auto (Bld) [Volume fraction]Ordered By: Charan Casey on 10-57-1493Zgscxxptyb (Bld) [Volume fraction] 38.0 %34.0-46.4FSamaritan HospitalHemoglobin [Mass/volume] in BloodOrdered By: Charan aCsey on 02-04-5593Jcorarskzk (Bld) [Mass/Vol]12.6 g/dL 11.8-15.4FSamaritan HospitalKetones Auto test strip (U) [Mass/Vol] Ordered By: Elpidio Sole on 19-73-2499Iarhlym (U) [Mass/Vol]NegativeNegative [facility] DublinLaboratory - Chemistry and Chemistry - challengeOrdered By: Elpidio Sole on 94-08-4116Slmoqxahs [Mass/Vol]1.9 mg/dL 1.6-2.6FSamaritan HospitalLaboratory - Hematology and Cell counts Ordered By: Charan Casey on 11-82-6151Tvlqgkdji RBC/100 WBC (Bld) [Ratio]0.0 % 0-0.5FSamaritan HospitalLabrentontory - UrinalysisOrdered By: Elpidio Whipple on 64-97-3938Rapcyja casts LM Ql (Urine sed)0-8 [LPF]0-8[facility] - DublinLeukocytes [#/volume] in Blood by Automated countOrdered By: Charan Casey on 28-87-2689KHM (Bld) [#/Vol]8.2 10*3/uL4.5-11.0[facility] - DublinLymphocytes Auto (Bld) [#/Vol]Ordered By: Charan Casey on 08-13-2022 Lymphocytes (Bld) [#/Vol]2.8 10*3/uL1.00-4.8[facility] Lymphocytes/100 WBC Auto (Bld)Ordered By: Charan Casey on 08-13-2022 Lymphocytes/100 WBC (Bld)34.1 %.[facility] Auto (RBC) [Entitic mass]Ordered By: Charan Casey on 74-40-5494VCJ (RBC) [Entitic mass]28.5 pg24.7-34.3FMcKitrick HospitalHC Auto (RBC) [Mass/Vol]Ordered By: Charan Casey on 15-31-4389WOSF (RBC) [Mass/Vol]33.2 g/dL32.0-35.0[facility] DublinMCV Auto (RBC) [Entitic vol]Ordered By: Charan Casey on 77-54-6781UWK (RBC) [Entitic vol]85.8 xL74-225FbqzktyqrSelect Medical [facility] Rehabilitation [facility] - Dublin Monocytes Auto (Bld) [#/Vol]Ordered By: Charan Casey on 71-13-2882Vzqknlvsq (Bld) [#/Vol]0.5 10*3/uL0.0-0.8[facility] DublinMonocytes/100 WBC Auto (Bld)Ordered By: Charan Casey on 35-40-1120Jiwqjdxpn/100 WBC (Bld)6.4 %.[facility] - DublinNeutrophils Auto (Bld) [#/Vol]Ordered By: Charan Casey on 26-63-4096Umaujihngwh (Bld) [#/Vol]4.7 10*3/uL1.8-7.7FSamaritan HospitalNeutrophils/100 WBC Auto (Bld)Ordered By: Charan aCsey on 08-13-2022 Neutrophils/100 WBC (Bld)56.8 %.[facility] - DublinNitrite Test strip Ql (U)Ordered By: Elpidio Whipple on 27-52-5560Sqfmcal Ql (U)NegativeNegative [facility] - DublinNo Panel InformationOrdered By: Charan Casey on 22-69-651620512941-Pzixxcw Vitamin D Total37.8 ng/aU12-799EepmhnrvzSelect Medical Ohiohealth Rehabilitation Hospital - DublinComment on above:VITAMIN D STATUS 25(OH)VITAMIN D RANGE (ng/mL) Deficient <20 Insufficient 20 to <59Sxrzddmate47 to 100Reference: Nayeli MF,Hannah NC, Jose GILBERT, et al. Evaluation,treatment, and prevention of vitamin D deficiency; an Endocrine Society clinical practice guideline. JCEM. 2010; 96 (7):1911-30.Estimated GFR ()46 mL/MinSelect Medical Ohiohealth Rehabilitation Hospital - DublinComment on above:GFR estimated reference range: According to KDOQI guidelines, <60 ml/min/1.73m2 is sufficient todiagnose a patient with chronic kidney disease.Pharmacy Creatinine Clearance (ChemN/AFSamaritan HospitalPlatelet mean volume Auto (Bld) [Entitic vol]Ordered By: Charan Casey on 31-74-1235Mbtsqmuw mean volume (Bld) [Entitic vol]9.2 fL6.3-10.7FSamaritan HospitalPlatelets Auto (Bld) [#/Vol]Ordered By: Charan Casey on 72-93-9905Diqofahuq (Bld) [#/Vol]272 10*3/wT272-859KbyxhjatcSelect Medical Ohiohealth Rehabilitation Hospital - DublinProtein Auto test strip (U) [Mass/Vol]Ordered By: Elpidio Whipple on 88-64-3510Jytvywr (U) [Mass/Vol]NegativeNegativeSelect Medical Ohiohealth Rehabilitation Hospital - DublinProtein [Mass/volume] in Serum or PlasmaOrdered By: Charan Casey on 68-93-4349Lfzsysp [Mass/Vol]7.0 g/dL6.1-7.9[facility] Protein [Mass/volume] in UrineOrdered By: Elpidio Whipple on 80-42-6227Dhszmvr (U) [Mass/Vol]7 mg/dL0-9[facility] - DublinRBC Auto (Bld) [#/Vol] Ordered By: Charan Casey on 16-50-0185VMU (Bld) [#/Vol]4.43 10*6/uL3.60-5.00 [facility] Hospitalerum or plasma alanine aminotransferase measurement without P-5'-P (enzymatic activiOrdered By: Charan Casey on 08-13-2022 ALT No additional P-5'-P [Catalytic activity/Vol]12 U/X53-94LcuzdyjnaNewark Hospitalerum or plasma albumin/globulin mass ratioOrdered By: Charan Casey on 82-98-6385Hqfosol/Globulin [Mass ratio]1.3 {ratio}[facility]ark Hospitalerum or plasma alkaline phosphatase measurement (enzymatic activity/volume)Ordered By: Charan Casey on 08-35-6843FSU [Catalytic activity/Vol] 79 U/V35-15SknrwkoxsNewark Hospitalerum or plasma anion gap determinationOrdered By: Charan Casey on 26-24-6544Emshb gap [Moles/Vol]15.4 mmol/L6.0-15.0Newark Hospitalerum or plasma aspartate aminotransferase measurement (enzymatic activity/volume)Ordered By: Charan Casey on 47-07-8399AUU [Catalytic activity/Vol]22 U/B61-00XzojpheveNewark Hospitalerum or plasma calcium measurement (mass/volume)Ordered By: Charan Casey on 40-00-1110Qxtxgtd [Mass/Vol]10.1 mg/dL8.2-10.2FSamaritan Hospital Serum or plasma chloride measurement (moles/volume)Ordered By: Charan Casey on 52-38-8212Ymzaxkhz [Moles/Vol]102 mmol/H97-744QvfojwmcaSelect Medical [facility]health Rehabilitation Hospital - Dublin Serum or plasma glucose measurement (mass/volume)Ordered By: Charan Casey on 98-02-9716Ceginuy [Mass/Vol]114 mg/iW77-436XjssuzgwwSelect Medical [facility] Rehabilitation Hospital - Dublin Comment on above:ADA recommended reference rangeRandom Glucose Reference Range is dependent on time and content of last meal. Glucose of more than 200 mg/dL in a nonstressed, ambulatory subject supports the diagnosisof Diabetes Mellitus. Serum or plasma high density lipoprotein (HDL) cholesterol measurementOrdered By: Charan Casey on 68-74-5252Drzvvybfqcc in HDL [Mass/Vol]28 mg/tK22-17QqenypuzpSelect Medical Ohiohealth Rehabilitation Hospital - DublinComment on above:HDL CHOL ATP-III CLASSIFICATION Cardiovascular RiskHDL > or equal to 60 mg/dL LOWHDL < 40 mg/dL HIGHSerum or plasma intact parathyroid hormone measurement (mass/volume)Ordered By: Elpidio Whipple on 71-09-8624Tysqxsowsv.intact [Mass/Vol]87.0 pg/tI75-22UnmmhfxbtNewark Hospitalerum or plasma potassium measurement (moles/volume)Ordered By: Charan Casey on 79-16-2471Dhhrtjhhv [Moles/Vol]4.9 mmol/L3.5-5.1FKettering Memorial Hospitalerum or plasma sodium measurement (moles/volume)Ordered By: Charan Casey on 19-74-3441Tiozxk [Moles/Vol]138 mmol/Q198-089UwfomioyoNewark Hospitalerum or plasma total bilirubin measurement (mass/volume)Ordered By: Charan Casey on 25-77-3578Ubpioekpv [Mass/Vol]0.4 mg/dL0.3-1.2FKettering Memorial Hospitalerum or plasma total carbon dioxide measurement (moles/volume)Ordered By: Charan Casey on 70-87-9439CM7 [Moles/Vol]25.5 mmol/L 22.0-30.0Newark Hospitalerum or plasma total cholesterol/high density lipoprotein (HDL) cholesterol mass ratOrdered By: Charan Casey on 14-54-9082Zqfzfgkedgz.total/Cholesterol in HDL [Mass ratio]6.1 {ratio}<5.0 [facility] Hospitalerum or plasma urea nitrogen measurement (mass/volume)Ordered By: Charan Casey on 91-87-1194Jctm nitrogen [Mass/Vol]45 mg/dL9-23Newark Hospitalerum or plasma uric acid measurement (mass/volume)Ordered By: Charan Casey on 04-92-5075Ykuzr [Mass/Vol]7.9 mg/dL 2.6-7.2FKettering Memorial Hospitalpecific gravity Auto test strip (U) [Rel density]Ordered By: Elpidio Whipple on 78-04-8001Jebkgzdy gravity (U) [Rel density]1.0201.001-1.030Newark Hospitalquamous epithelial cells detection in urine sediment by light microscopyOrdered By: Elpidio Whipple on 36-74-0641Amgpdvtlnr cells.squamous LM Ql (Urine sed)0-1 [HPF]0-2FSamaritan HospitalTS DL <= 0.005 mIU/L QnOrdered By: Charan Casey on 01-20-8768ZGV Qn1.91 m[IU]/L0.45-5.33[facility] Triglyceride [Mass/volume] in Serum or PlasmaOrdered By: Charan Casey on 64-68-8743Bvuibvxrdvll [Mass/Vol]207 mg/wE18-068AnhnpqqikSelect Medical Ohiohealth Rehabilitation Hospital - DublinComment on above:TRIG ATP III CLASSIFICATIONTRIG less than 150 mg/dL NormalTRIG 150-199 mg/dL Borderline highTRIG 200-500 mg/dL High TRIG greater than 500 mg/dL Very highStandard traceable to the Center for Disease Conrtrol and Prevention (CDC) test method.Urine bacteria detection by automated method Ordered By: Elpidio Whipple on 83-97-6552Vzdixmxw Auto Ql (U)None seenNone Seen [facility] Hospital - DublinUrine clarity by refractometry automatedOrdered By: Elpidio Whipple on 97-66-6480Ilhqqyi Refractometry automated (U)ClearClear [facility] Hospital - DublinUrine glucose measurement by automated test strip (mass/volume)Ordered By: Elpidio Whipple on 18-91-8265Klcheyq Auto test strip (U) [Mass/Vol]Normal mg/dLNormalSelect Medical Ohiohealth Rehabilitation Hospital - DublinUrine hemoglobin detection by automated test stripOrdered By: Elpidio Whipple on 73-44-4659Syispjaoos Auto test strip Ql (U)NegativeNegativeSelect Medical Ohiohealth Rehabilitation Hospital - DublinUrine leukocyte esterase detection by automated test stripOrdered By: Elpidio Whipple on 36-61-2667Occktfemm esterase Auto test strip Ql (U)Negative NegativeSelect Medical Ohiohealth Rehabilitation Hospital - DublinUrine protein/creatinine ratioOrdered By: Elpidio Whipple on 68-93-5355Sgbjewk/Creatinine (U) [Ratio]55 mg/g{Cre}0-200 [facility] Hospital - DublinUrobilinogen Auto test strip (U) [Mass/Vol] Ordered By: Elpidio Whipple on 19-99-5621Lvchkldwhndn (U) [Mass/Vol]Normal mg/dL NormalSelect Medical Ohiohealth Rehabilitation Hospital - DublinpH Auto test strip (U)Ordered By: Elpidio Whipple on 61-55-1892nJ (U)5.0 [pH]5.0-9.0[facility] - DublinTobacco Screening.on 16-33-7159Sahju depression screening assessmentNo-[facility] 250 DO Work Phone: Fall risk assessmenta) No falls within the last year -[facility] 250 DO Work Phone: Tobacco use status CPHSb) NoMP-[facility] [employer] 250 DO Work Phone: Laboratory - Chemistry and Chemistry - challengeon 91-39-1532Bckqzqolsvr [Mass/Vol]218\S\218above high nlhmckent075-351DS-Uwlnw [facility] 250 DO Work Phone: Comment on above:Chol less than 200 mg/dl low risk Chol 201-239 mg/dl borderline risk Chol 240 mg/dl and greater high risk Cholesterol in LDL [Mass/Vol]145\S\145above high tovhjzdov9-521ZL-Xlgzn [facility] 250 DO Work Phone: Comment on above:LDL ATP III CLASSIFICATION LDL less than 100 mg/dL Optimal LDL 100-129 mg/dL Near or above optimal LDL 130-159 mg/dL Borderline high LDL 160-189 mg/dL High LDL greater than 189 mg/dL Very high Laboratory - Microbiology and Antimicrobial susceptibilityon 03-25-2022 SARS-CoV-2 (COVID-19) RNA AHMET+probe Ql (Unsp spec)MP-[facility] 250 DO Work Phone: No Panel Informationon .2\S\40.2Normal.MP- [facility] 250 DO Work Phone: [phone]\S\9.6Bhigkl1.3-10.7MP-[facility] 250 DO Work Phone: [phone]\S\350Tyuysi662-330GC-Vkhwb [facility] 250 DO Work Phone: [phone]\S\13.4Biiwih08.9-15.3MP-[facility] 250 DO Work Phone: [phone]\S\34.4Ocrnad84.0-35.0MP-[facility] 250 DO Work Phone: [phone]\S\29.3Dzyjxd76.7-34.3MP-[facility] 250 DO Work Phone: [phone]\S\2.5Nfkpzc1.8-7.7MP-[facility] 250 DO Work Phone: [phone]\S\0.6Gnjnjm2.0-0.45MP-[facility] 250 DO Work Phone: [phone]\S\0.6Normal.MP-[facility] 250 DO Work Phone: [phone]\S\2.9Normal.MP-[facility] 250 DO Work Phone: [phone]\S\7.1Normal.MP-[facility] 250 DO Work Phone: [phone]\S\49.2Normal.MP-[facility] 250 DO Work Phone: [phone]\S\0.3Zheebo5.0-0.2MP-[facility] 250 DO Work Phone: [phone] on above:PERFORMED BY:[facility] [place], [place] [phone] MEDICAL DIRECTORJE SHELLEY M.D.0.4\S\0.7Jwqvdc2.0-0.8MP-[facility] 250 DO Work Phone: [phone]\S\2.8Zecjfp4.00-4.8MP-[facility] 250 DO Work Phone: [phone]\S\85.0Ikdijl22-127SO-Asvjb [facility] 250 DO Work Phone: [phone]\S\39.6Yfzqya61.0-46.4MP-[facility] 250 DO Work Phone: [phone]\S\13.4Zogjrr45.8-15.4MP-[facility] 250 DO Work Phone: [phone]\S\4.46Jsvrxi1.60-5.00MP-[facility] 250 DO Work Phone: [phone]\S\5.8Usrslg5.8-11.6MP-[facility] 250 DO Work Phone: [phone]\S\33.8Nzslzk53.1-36.5MP-[facility] 250 DO Work Phone: [phone] on above:PERFORMED BY:[facility] [place], [place] [phone] MEDICAL DIRECTORJE SHELLEY M.D.1.0\S\1.0NormalMP-[facility] 250 DO Work Phone: Comment on above:INR Therapeutic Range A) Pre- and Peroperative OAT started two weeks before surgery. NOT HIP SURGERY: 1.5 - 2.5 HIP SURGERY: 2 - 3 B) Primary and secondary prevention of venous THROMBOSIS: 2 - 3 C) Active venous thrombosis, pulmonary embolism and prevention of recurrent venous thrombosis: 2 - 3 D) Prevention of arterial thromboembolism including patients with mechanical heart valves: 3 - 4.510.9\S\10.1Omgupg5.0-12.9MP-[facility] 250 DO Work Phone: [phone]\S\26.0Jobsdc98.0-30.0MP-[facility] 250 DO Work Phone: [phone]\S\038Btkolk44-887KS-Wxwls [facility] 250 DO Work Phone: [phone]\S\4.1Wktmyv4.5-5.1MP-[facility] 250 DO Work Phone: [phone]\S\411Sftrei945-098KN-Xhvtb [facility] 250 DO Work Phone: [phone]\S\93Hirjto8-05QU-Vjvtd [facility] 250 DO Work Phone: [phone]\S\54NormalMP-[facility] 250 DO Work Phone: Comment on above:GFR estimated reference range: According to KDOQI guidelines, <60 ml/min/1.73m2 is sufficient todiagnose a patient with chronic kidney disease.45\S\45NormalMP-[facility] 250 DO Work Phone: [phone]\S\1.22above high threshold0.44-1.03MP-[facility] 250 DO Work Phone: [phone]\S\6.4Normal<5.0MP-[facility] 250 DO Work Phone: Comment on above:PERFORMED BY:[place] [place], [place] [phone] MEDICAL DIRECTORJE SHELLEY M.D.39\S\39NormalMP-[facility] 250 DO Work Phone: [phone]\S\197above high irangfuwm32-486SZ-Fmhyx [facility] 250 DO Work Phone: Comment on above:TRIG ATP III CLASSIFICATION TRIG less than 150 mg/dL Normal TRIG 150-199 mg/dL Borderline high XIGY833-009 mg/dL High TRIG greater than 500 mg/dL Very high Standard traceable to the Center for Disease Conrtrol and Prevention (CDC) test method.34\S\34below low threshold 50-90UH-Wakuw [facility] 250 DO Work Phone: Comment on above:HDL CHOL ATP-III CLASSIFICATION Cardiovascular Risk HDL > or equal to 60 mg/dL LOW HDL < 40 mg/dL HIGHNegative NormalNegative-[facility] 250 DO Work Phone: Comment on above:This is a duplicate Ashley SARS Antigen (PRISCILA) result to be used for statistical tracking purpose only.PERFORMED BY:[address] [place] [place], [place] [phone] MEDICAL BRANT SHELLEY M.D.CT Angio Coronary Arteries with Heart Flowon 01-21-2804XD Angio Coronary Arteries with Heart Flow NormalKindred [facility] 250 DO Work Phone: th CTA CORONARY ART WITH HEARTFLOW IF SCORE >30%.on 95-93-4793LY CTA CORONARY ART WITH HEARTFLOW IF SCORE >30%.Addendum Begins Patient Name: RITA COBB ADDENDUM: NON-CARDIOVASCULAR [...] R07.9: Chest pain. COMPARISON: None. ACCESSION NUMBER(S): [id number] ORDERING CLINICIAN: ROSALINDA TORRES TECHNIQUE: Using multi-detector [...] Intact. AORTIC VALVE: The (more content not included)...NormalUH University Of [facility] HospitalTobacco Screening.on 45-55-0695Kojcm depression screening assessmentNo-[facility] 250 DO Work Phone: Fall risk assessmenta) No falls within the last year -[facility] 250 DO Work Phone: Tobacco use status CPHSb) NoMP-[facility] 250 DO Work Phone: SURGICAL PATHOLOGYon 19-26-4054QULYPCAJ PATHOLOGY Specimen #: [id number] Physician: REUBEN CRAVEN M.D. FINAL DIAGNOSIS1. 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 Skin,left upper arm, shave biopsy ([id number]; 07/20/2018) - Intradermal nevus, neurotized (see comment).AF/CE/dss 07/26/2018 COMMENTMany thanks for involving us in this case of two melanocytic lesions fromthe right posterior shoulder and left upper arm of a 57-year-old woman. 1. Histologic sections demonstrate a junctional melanocytic proliferationwith bridging of adjacent rete ridges, papillary dermalfibrosis andunderlying sparse lymphocytic inflammation and melanoderma. An immunohistochemical stain for MART-1 and S[facility]. These stains highlight a well-nested,symmetric junctional melanocytic proliferation, consistent with the abovediagnosis.2. Histologic sections demonstrate an intradermal melanocytic proliferationthat matures and disperses to the base. The lesional cells have a spindled,neural appearance with descent into the dermis. Atypia and lymphoidaggregates are not identified. Immunohistochemical stains performed at the outsideinstitution for MART-1and S100 are reviewed. These stains highlight the spindled cells within thedermis. Overall, these histologic and immunohistochemical features areconsistent with the diagnosis ofa neurotized intradermal nevus.Thank you for sending this case in consultation. Please call theDermatopathology Consultation Service at [phone] with questions or ifadditional follow-up information becomes available regarding this patient.This case was reviewed in conjunction with the Dermatopathology Fellow, Dr.Carly Marija MD.Donald Zavaleta M.D. PhD(Electronic Signature) SPECIMEN SUBMITTEDA: 11 SLIDES ([id number]) CLINICAL DATANone provided. of Report: 07/26/2018Date of Procedure: 07/23/2018Dateof Receipt: 07/23/2018Submitted by: REUBEN CRAVEN M.D.Location: J32Ghpsvhqljx interpretation performed at [facility], [address] [place] [address].NormalSelect Medical Specialty [facility] - Trumbull Reference LabComment on above:Performed By: #### S ####See report for performing lab information. Vital Signs Date TimeVital SignValuePerforming SpkimjzaoWqbqwnao08-04-5046 08:040Body wadrgz166.6 cmAllison [employer] DO Work Phone: [facility] Lsreocjupf58-40-3316 08:13040Body temperature 97.5 [degF]Shaina Petznick DO Work Phone: [facility] Klbksvmiyq74-30-4691 08:040Diastolic blood rtligyyw43 mm[Hg]Shaina Petznick DO Work Phone: [facility] Ftsvqbtotx62-64-8569 08:13040Heart rate65 /min Shaina Petznick DO Work Phone: noMS Gontgbldzs30-00-5893 08:137786TtZ1% (BldA) [Mass fraction]98 %Shaina [employer] DO Work Phone: noSt. Louis Behavioral Medicine InstituteGszljecauh43-83-2115 08:13-0400Systolic blood mm[Hg]Shaina Petznick DO Work Phone: noSt. Louis Behavioral Medicine InstituteLwsrrtiutx45-15-4434 08:20-0400Body temperature 97.8 [degF]Charan Casey DO Work Phone: [facility]08-13-2025 08:20-0400 Diastolic blood mm[Hg]Charan Casey DO Work Phone: [facility]08-13-2025 08:20-0400 Heart rate70 /minCharan Casey DO Work Phone: [facility]08-13-2025 08:20-0400 Respiratory rate16 /minCharan Casey DO Work Phone: [facility]08-13-2025 08:20-0400 SaO2% (BldA) [Mass fraction]97 %Charan Casey DO Work Phone: [facility]08-13-2025 08:20-0400 Systolic blood yplwnnlj054 mm[Hg]Charan Casey DO Work Phone: [facility]06-16-2025 10:29-0400 Body jworyz573.6 cmAllison Petznick DO Work Phone: noSt. Louis Behavioral Medicine InstituteVivjgorlee82-99-4872 10:29-0400Body mass index (BMI) [Ratio]35.86 kg/d6Vaftyep Petznick DO Work Phone: noSt. Louis [facility] Medicine InstituteAjowddezzq94-76-3962 10:29-0400Body temperature 97.2 [degF]Shaina Petznick DO Work Phone: NOSt. Louis Behavioral Medicine InstituteBryrqokquz19-65-8990 10:29-0400Body iyjmig364.79 kgAllison Petznick DO Work Phone: noSt. [facility] Medicine InstituteMllzdnarmb14-66-5839 10:29-0400Diastolic blood buplepwd15 mm[Hg]Shaina Petznick DO Work Phone: noSt. Louis [facility] Medicine InstituteJtvozpjyth36-99-8788 10:29-0400Heart rate67 /min Shaina Munroe DO Work Phone: noSt. Louis [facility] Medicine InstituteBauxkgldrg12-05-3729 10:29-8501TxY7% (BldA) [Mass fraction]98 %Shaina Paredesick DO Work Phone: noSt. Louis [facility] Medicine InstituteTlaaxhaafi68-30-2369 10:290400Systolic blood zvfsegur274 mm[Hg]Shaina Paredesick DO Work Phone: noSt. Louis Behavioral Medicine InstituteXptjhlaoco14-15-1249 08:09-0400Body oqqjbj857.18 cmCharan Casey DO Work Phone: [address] [place], [place] 3318204-07-2025 08:09-0400 Body mass index (BMI) [Ratio]35.4 kg/e6KdocgCharan Masseys DO Work Phone: [phone] [place], [place] 3318204-07-2025 08:09-0400 Body .51 kgCharan Masseys DO Work Phone: [address] [place], [place] 3318204-07-2025 08:09-0400 Respiratory rate16 /minCharan Masseys DO Work Phone: [phone]04-07-2025 08:09-0400 SaO2% (BldA) [Mass fraction]98 %Charan Casey DO Work Phone: [facility]03-20-2025 09:35-0400 Body .18 cmCharan Masseys DO Work Phone: [phone] [place], [place] 1566603-20-2025 09:35-0400 Body mass index (BMI) [Ratio]36.5 kg/p3NgmljCharan Masseys DO Work Phone: [phone]03-20-2025 09:35-0400 Body vrqjqe038.68 kgCharan Masseys DO Work Phone: [phone] [place], [place] 1566602-10-2025 10:01-0500 Body vpktqu742.18 cmCharan Casey DO Work Phone: [facility]02-10-2025 10:01-0500 Body mass index (BMI) [Ratio]36.5 kg/g2WjktmCharan Masseys DO Work Phone: [facility]02-10-2025 10:01-0500 Body oznuvq906.68 kgCharan Masseys DO Work Phone: [facility]02-10-2025 10:01-0500 Diastolic blood nsbrketn58 mm[Hg]Charan Casey DO Work Phone: [phone] [place], [place] 1566602-10-2025 10:01-0500 Heart rate69 /minCharan Casey DO Work Phone: [phone]03[facility]02-10-2025 10:01-0500 Respiratory rate16 /minCharan Casey DO Work Phone: [phone]02-10-2025 10:01-0500 SaO2% (BldA) [Mass fraction]98 %Charan Casey DO Work Phone: [facility]02-10-2025 10:01-0500 Systolic blood vytjnnbw904 mm[Hg]Charan Masseys DO Work Phone: [phone]01-10-2025 10:39-0500 Body umtvwr456.18 cmCharan Masseys DO Work Phone: [phone]01-10-2025 10:39-0500 Body mass index (BMI) [Ratio]36.1 kg/g6MrxypCharan Masseys DO Work Phone: [phone]01-10-2025 10:39-0500 Body eaazruscsco56.4 [degF]Charan Masseys DO Work Phone: [phone]01-10-2025 10:39-0500 Body stimff305.77 kgCharan Masseys DO Work Phone: [facility]01-10-2025 10:39-0500 Diastolic blood yxlfomgj20 mm[Hg]Charan Brysons DO Work Phone: [facility]01-10-2025 10:39-0500 Heart rate78 /minYeisonan Brysons DO Work Phone: [facility]01-10-2025 10:39-0500 Respiratory rate16 /minBryan Kuns DO Work Phone: [facility]01-10-2025 10:39-0500 SaO2% (BldA) [Mass fraction]97 %Charan Brysons DO Work Phone: [facility]01-10-2025 10:39-0500 Systolic blood mm[Hg]Charan Brysons DO Work Phone: [address] [place], [place] 3318212-03-2024 09:30-0500 Diastolic blood mm[Hg]Charan Brysons DO Work Phone: [address] [place], [place] 3318212-03-2024 09:30-0500 Heart rate65 /minCharan Masseys DO Work Phone: [facility]12-03-2024 09:30-0500 Respiratory rate16 /minYeisonan Brysons DO Work Phone: [facility]12-03-2024 09:30-0500 SaO2% (BldA) [Mass fraction]99 %Charan Brysons DO Work Phone: [facility]12-03-2024 09:30-0500 Systolic blood ypsmakmn015 mm[Hg]Charan Brysons DO Work Phone: [facility]12-03-2024 08:48-0500 Inhaled oxygen flow rate3 L/minYeisonan Brysons DO Work Phone: [address] [place], [place] 3318212-03-2024 07:38-0500 Body lpwqil776.18 cmBryan Kuns DO Work Phone: [facility]12-03-2024 07:38-0500 Body zgbujb930.86 kgBryheather Kuns DO Work Phone: [facility]11-20-2024 08:13-0500 Body xsobch750.88 kgBryheather Masseys DO Work Phone: [facility]11-18-2024 13:12-0500 Body fvulfb239.6 cmAllison Petznick DO Work Phone: [phone] [place], [place] [address]Cqoscpgvvw30-89-2720 13:12-0500Body mass index (BMI) [Ratio]39.06 kg/e1Tuzumib Petznick DO Work Phone: [phone] [facility] [place], [place] [address]Icxhrolwvn93-25-4437 13:12-0500Body temperature 97.3 [degF]Shaina Petznick DO Work Phone: [phone] [place], [place] [address]Wjrulmnuvc32-75-4404 13:12-0500Body .77 kgAllison Petznick DO Work Phone: 1(719)[facility] [place], [place] [address]Awkrswyieu22-66-9810 13:12-0500Diastolic blood wqbmnsyy48 mm[Hg]Shaina Petznick DO Work Phone: 2(664)259-[address] [place], [place] [address]Emvnsgmkgl16-31-8314 13:12-0500Heart rate78 /min Shaina Petznick DO Work Phone: 9(585)594-[address] [place], [place] [address]Goopwetzvp22-27-4296 13:12-9895EsE7% (BldA) [Mass fraction]96 %Shaina Petznick DO Work Phone: 8(003)269-[address] [place], [place] [address]Puypqrdaxj37-08-0513 13:12-0500Systolic blood gqcqrujj286 mm[Hg]Shaina Petznick DO Work Phone: 1(936)386-[address] [place], [place] [address]Wmvtsphmds91-41-0205 10:28-0400Diastolic blood dvecbqhp12 mm[Hg]DO Charan Casey Work Phone: [facility]10-22-2024 10:28-0400 Heart rate68 /minDO Charan Brysonbryn Work Phone: [facility]10-22-2024 10:28-0400 Respiratory rate16 /GeovanyO Charan Casey Work Phone: [facility]10-22-2024 10:28-0400 SaO2% (BldA) [Mass fraction]95 %DO Charan Casey Work Phone: [facility]10-22-2024 10:28-0400 Systolic blood xddjggze684 mm[Hg]DO Charan Casey Work Phone: [address] [place], [place] 3318210-22-2024 09:50-0400 Inhaled oxygen flow rate3 L/Dean Casey Work Phone: 1(453)[address]10-22-2024 08:38-0400 Body tnofcd730.18 cmDO Charan Casey Work Phone: [address] [place], [place] 3318210-22-2024 08:38-0400 Body bfybxz420.95 kgDO Charan Casey Work Phone: [address] [place], [place] 3318209-26-2024 08:35-0400 Body .2 cmRosalinda Torres MD Work Phone: [place]09-26-2024 08:35-0400 Body mass index (BMI) [Ratio]37.75 kg/s5OsgxokRosalinda Torres MD Work Phone: 5(743)657-[address] [place], [place] 9681809-26-2024 08:35-0400 Body mcceon430.32 kgRosalinda Torres MD Work Phone: 5(655)515-66[place]09-26-2024 08:35-0400 Diastolic blood ixayzcgw76 mm[Hg]Rosalinda Torres MD Work Phone: 9(121)800-[address] [place], [place] 9681809-26-2024 08:35-0400 Heart rate80 /minRosalinda Torres MD Work Phone: [place]09-26-2024 08:35-0400 Systolic blood vlgsjwfi527 mm[Hg]Rosalinda Torres MD Work Phone: [place]07-10-2024 15:44-0400 Body klrveh858.18 cmDO Charan Casey Work Phone: [facility]07-10-2024 15:44-0400 Body mass index (BMI) [Ratio]37 kg/m2DO Charan Casey Work Phone: [facility]07-10-2024 15:44-0400 Body pyzarp956.5 kgDO Charan Casey Work Phone: [facility]07-10-2024 15:44-0400 Diastolic blood ipijvchu20 mm[Hg]DO Charan Casey Work Phone: [facility]07-10-2024 15:44-0400 Heart rate95 /GeovanyO Charan Jacinto Work Phone: [facility]07-10-2024 15:44-0400 SaO2% (BldA) [Mass fraction]96 %DO Charan Casey Work Phone: [facility]07-10-2024 15:44-0400 Systolic blood zkqphwka820 mm[Hg]DO Charan Casey Work Phone: [facility]07-02-2024 11:30-0400 Diastolic blood qmqdnevv51 mm[Hg]DO Charan Casey Work Phone: [facility]07-02-2024 11:30-0400 Heart rate68 /GeovanyO Charanheather Masseybryn Work Phone: [facility]07-02-2024 11:30-0400 Respiratory rate16 /GeovanyO Charanheather Casey Work Phone: [facility]07-02-2024 11:30-0400 SaO2% (BldA) [Mass fraction]98 %DO Charan Casey Work Phone: [facility]07-02-2024 11:30-0400 Systolic blood qejtwczz001 mm[Hg]DO Charan Casey Work Phone: [facility]07-02-2024 10:53-0400 Inhaled oxygen flow rate3 L/Dean Casey Work Phone: [facility]07-02-2024 10:09-0400 Body qeokep444.18 cmDO Charan Casey Work Phone: [facility]07-02-2024 10:09-0400 Body dawjjl337.86 kgDO Charan Casey Work Phone: [facility]04-02-2024 09:31-0400 Body rlknra246.18 cmDO Charan Casey Work Phone: [facility]04-02-2024 09:31-0400 Body mass index (BMI) [Ratio]37.4 kg/m2DO Charan Casey Work Phone: [facility]04-02-2024 09:31-0400 Body fhzpyjvjnot98.8 [degF]DO Charan Casey Work Phone: [facility]04-02-2024 09:31-0400 Body vvfzai225.4 kgDO Charan Casey Work Phone: [facility]04-02-2024 09:31-0400 Diastolic blood odkhhquo61 mm[Hg]DO Charan Casey Work Phone: [facility]04-02-2024 09:31-0400 Heart rate88 /Dean Casey Work Phone: [facility]04-02-2024 09:31-0400 Respiratory rate16 /Dean Casey Work Phone: [facility]04-02-2024 09:31-0400 SaO2% (BldA) [Mass fraction]98 %DO Charan Casey Work Phone: [facility]04-02-2024 09:31-0400 Systolic blood sahltmam465 mm[Hg]DO Charan Casey Work Phone: [facility]03-25-2024 14:26-0400 Body htulnl358.2 cmRosalinda Torres MD Work Phone: 1(576)900-[address] [place], [place] [address]1803-25-2024 14:26-0400 Body mass index (BMI) [Ratio]37.12 kg/s9MjpfwvRosalinda Torres MD Work Phone: 1(469)[address]03-25-2024 14:26-0400 Body kslytp328.5 kgRosalinda Torres MD Work Phone: 1(224)[address]03-25-2024 14:26-0400 Diastolic blood eytexvkk46 mm[Hg]Rosalinda Torres MD Work Phone: 1(013)[address]03-25-2024 14:26-0400 Heart rate84 /minRosalinda Torres MD Work Phone: 1(978)[address]03-25-2024 14:26-0400 Systolic blood dxzsvetj737 mm[Hg]Rosalinda Torres MD Work Phone: 1(426)[address]01-31-2024 13:00-0500 Body .18 cmCharan Casey Other [facility]01-31-2024 13:00-0500 Body mass index (BMI) [Ratio]37.59 kg/q5WvzpeCharan Casey Other [employer] Other [id number] 13:00-0500Body zixebcptgka46.3 [degF]Charan [facility] Other [facility] [employer] Other 01-31-2024 13:00-0500Body esyftu770.86 kgCharan Casey Other [facility]01-31-2024 13:00-0500 Diastolic blood mm[Hg]Charan Casey Other [facility]01-31-2024 13:00-0500 Respiratory rate18 /minCharan Casey Other [employer] Other [id number] 13:00-7399HjB1% (BldA) [Mass fraction]96 % Charan Casey Other [employer] Other [id number] 13:00-0500Systolic blood mm[Hg] Charan Casey Other [facility]11-22-2023 12:45-0500 Body uopzjp637.18 cmThommarquez Josesito Other [employer] Other 11-22-2023 12:45-0500Body mass index (BMI) [Ratio] 37.43 kg/u1Xgbifo Josesito Other [employer] Other 11-22-2023 12:45-0500Body iultfhgyaxm11.6 [degF]Blas Bellamy Other [employer] Other 11-22-2023 12:45-0500Body dcffui528.41 kgThomas Josesito Other [employer] Other 11-22-2023 12:45-0500Diastolic blood xkadmtsa54 mm[Hg] Blas Bellamy Other [employer] Other 11-22-2023 12:45-0500Respiratory rate18 /minThomas Josesito Other [facility] [employer] Other 11-22-2023 12:45-2362BzA7% (BldA) [Mass fraction]96 % Blas Bellamy Other [facility] [employer] Other 11-22-2023 12:45-0500Systolic blood ykdbrhxm360 mm[Hg] Blas Bellamy Other [facility] [employer] Other 11-07-2023 09:04-0500Diastolic blood knyfpfma24 mm[Hg] DO Charan Casey Work Phone: [facility]11-07-2023 09:04-0500 Heart rate76 /Dean Casey Work Phone: [facility]11-07-2023 09:04-0500 Respiratory rate16 /Dean Casey Work Phone: [facility]11-07-2023 09:04-0500 SaO2% (BldA) [Mass fraction]96 %DO Charan Casey Work Phone: [facility]11-07-2023 09:04-0500 Systolic blood mm[Hg]DO Charan Casey Work Phone: [facility]11-07-2023 07:01-0500 Body eyudxv888.18 cmDO Charan Casey Work Phone: [facility]11-07-2023 07:01-0500 Body kamewx279.59 kgDO Charan Casey Work Phone: [facility]10-17-2023 10:20-0400 Body tqikko412.18 cmAbdul Sole Other [facility] [employer] Other 053005-29-2521 10:20-0400Body mass index (BMI) [Ratio] 37.46 kg/m5Yjplh Sole Other [facility] [employer] Other 10-17-2023 10:20-0400Body ibsydeqcgoz00.2 [degF]Elpidio Sole Other [place] [employer] Other 10-17-2023 10:20-0400Body nfewjh479.5 kgAbdul Sole Other [place] [employer] Other 10-17-2023 10:20-0400Diastolic blood tvwwwcow12 mm[Hg] Elpidio Sole Other [place] [employer] Other 10-17-2023 10:20-0400Respiratory rate18 /minAbdul Sole Other [place] [employer] Other 10-17-2023 10:20-5434QxC6% (BldA) [Mass fraction]99 % Elpidio Sole Other [place] [employer] Other 10-17-2023 10:20-0400Systolic blood ubzgdttv579 mm[Hg] Elpidio Sole Other [place] [employer] Other 10-10-2023 09:00-0400Diastolic blood xyrsffgr24 mm[Hg] DO Charan Masseybryn Work Phone: [facility]10-10-2023 09:00-0400 Heart rate69 /Dean Casey Work Phone: [facility]10-10-2023 09:00-0400 Respiratory rate16 /Dean Casey Work Phone: [facility]10-10-2023 09:00-0400 SaO2% (BldA) [Mass fraction]96 %DO Charan Casey Work Phone: [facility]10-10-2023 09:00-0400 Systolic blood udwmsobj720 mm[Hg]DO Charan Casey Work Phone: [facility]10-10-2023 08:17-0400 Inhaled oxygen flow rate3 L/minDO Charan Casey Work Phone: [facility]10-10-2023 07:21-0400 Body kyrarn505.18 cmDO Charanheather Casey Work Phone: [facility]10-10-2023 07:21-0400 Body vbfkno398.86 kgDO Charan Casey Work Phone: [facility]09-18-2023 09:30-0400 Body nngzvi601.18 cmThomas Felter Other [employer] Other 09-18-2023 09:30-0400Body mass index (BMI) [Ratio] 38.06 kg/w6Zcvhir Felter Other [employer] Other 09-18-2023 09:30-0400Body iltkzd361.22 kgThomas Felter Other [employer] Other 09-12-2023 09:20-0400Body uytmuw725.18 cmDale Chatterjee Other [employer] Other 09-12-2023 09:20-0400Body mass index (BMI) [Ratio] 38.06 kg/m2Dale Chatterjee Other [employer] Other 09-12-2023 09:20-0400Body tnugox803.22 kgDale Chatterjee Other [employer] Other 09-12-2023 09:20-0400Diastolic blood mm[Hg] Thierno Chatterjee Other [employer] Other 09-12-2023 09:20-0400Systolic blood dadkogpt465 mm[Hg] Thierno Chatterjee Other [employer] Other 09-06-2023 08:15-0400Body maxxje149.18 cmCharan Casey Other [employer] Other 09-06-2023 08:15-0400Body mass index (BMI) [Ratio] 38.21 kg/t9CuuvxCharan Casey Other [employer] Other 09-06-2023 08:15-0400Body vvvaeu790.68 kgCharan Casey Other [employer] Other 09-06-2023 08:15-0400Diastolic blood mm[Hg] Charan Casey Other [employer] Other 09-06-2023 08:15-0400Respiratory rate18 /minCharan Casey Other [employer] Other 09-06-2023 08:15-9881EoT6% (BldA) [Mass fraction]95 % Charan Casey Other [employer] Other 09-06-2023 08:15-0400Systolic blood malfwinv908 mm[Hg] Charan Casey Other [employer] Other 06-20-2023 12:30-0400Body ncqcho260.18 cmCharan Casey Other [facility] [employer] Other 06-20-2023 12:30-0400Diastolic blood ctjjuora89 mm[Hg] Charan Casey Other [facility] [place] [employer] Other 06-20-2023 12:30-0400Respiratory rate18 /minCharan Casey Other [place] [employer] Other 06-20-2023 12:30-0859JvF7% (BldA) [Mass fraction]97 % Charan Casey Other [place] [employer] Other 06-20-2023 12:30-0400Systolic blood kcjcvucq112 mm[Hg] Charan Casey Other [place] [employer] Other 06-01-2023 10:17-0400Body qcaqlr277.18 cmCharan Casey Work Phone: [id number]-Qjryi [place] [employer] 250 DO Work Phone: 1(775) 792-507606-01-2023 10:17-0400Body mass index (BMI) [Ratio] Medical Reason Not DoneCharan Casey Work Phone: [phone]-Rtptk [place] [facility] DO Work Phone: 1(339) 626-640406-01-2023 10:17-0400Diastolic blood azqtmsyt97 mm[Hg] Charan Casey Work Phone: [phone]-Cjher [place] [facility] 250 DO Work Phone: 1(162) 963-102906-01-2023 10:17-0400Heart rate72 /minCharan Casey Work Phone: mp862-1571XJ-Cbdql [facility] 250 DO Work Phone: 1(238) 238-670406-01-2023 10:17-0400Systolic blood kmfqgcry033 mm[Hg] Charan Casey Work Phone: 1(561) 271-7784676-0450YR-Gainj [facility] 250 DO Work Phone: 1(998) 359-421605-02-2023 15:30-0400Body .18 cmCharan Brysonbryn Other [facility] [employer] Other 05-02-2023 15:30-0400Diastolic blood yirmjphw52 mm[Hg] Charan Casey Other [facility] [place] [employer] Other 05-02-2023 15:30-0400Respiratory rate18 /minCharan Casey Other [facility] [employer] Other 05-02-2023 15:30-6026VgP6% (BldA) [Mass fraction]98 % Charanheather Casey Other [place] [employer] Other 05-02-2023 15:30-0400Systolic blood dwyhqelh431 mm[Hg] Charan Casey Other [place] [employer] Other 04-11-2023 15:40-0400Body .18 cmAbdul Sole Other [facility] [employer] Other 04-11-2023 15:40-0400Diastolic blood mm[Hg] Elpidio Sole Other [place] [employer] Other 04-11-2023 15:40-0400Respiratory rate16 /minAbdul Sole Other [place] [employer] Other 04-11-2023 15:40-6948HqH2% (BldA) [Mass fraction]99 % Elpidio Sole Other [facility] [employer] Other 04-11-2023 15:40-0400Systolic blood cuibiehk781 mm[Hg] Elpidio Sole Other [employer] Other 04-05-2023 15:00-0400Body uxprno650.18 cmChristopher Coco Other [employer] Other 04-05-2023 15:00-0400Body mass index (BMI) [Ratio] 37.43 kg/w1Isfnpptvsle Coco Other [employer] Other 04-05-2023 15:00-0400Body yrnoiu143.41 kgChristopher Coco Other [employer] Other 04-05-2023 15:00-0400Diastolic blood pvtmiczz62 mm[Hg] Christopher Coco Other [employer] Other 04-05-2023 15:00-0090XoL4% (BldA) [Mass fraction]98 % Christopher Coco Other [employer] Other 04-05-2023 15:00-0400Systolic blood tvkmqafi255 mm[Hg] Christopher Coco Other [employer] Other 10-26-2022 16:00-0400Body .18 cmAbdul Sole Other [employer] Other 10-26-2022 16:00-0400Body mass index (BMI) [Ratio] 37.37 kg/i3Gsptq Sole Other [employer] Other 10-26-2022 16:00-0400Body idedddigljr07.4 [degF]Elpidio Sole Other [employer] Other 10-26-2022 16:00-0400Body anlcrc087.23 kgAbdul Sole Other [employer] Other 10-26-2022 16:00-0400Diastolic blood iqsruvde03 mm[Hg] Elpidio Sole Other [employer] Other 10-26-2022 16:00-0400Respiratory rate16 /minAbdul Sole Other [facility] [employer] Other 10-26-2022 16:00-7591SwA7% (BldA) [Mass fraction]98 % Elpidio Sole Other [facility] [place] [employer] Other 10-26-2022 16:00-0400Systolic blood oplmbfav644 mm[Hg] Elpidio Sole Other [employer] Other 10-04-2022 14:00-0400Body .18 cmCharan Casey Other [facility] [employer] Other 10-04-2022 14:00-0400Body mass index (BMI) [Ratio]37.9 kg/u3Zizcv Jacinto Other [employer] Other 10-04-2022 14:00-0400Body ywmwuv438.77 kgBryheather Jacinto Other [employer] Other 10-04-2022 14:00-0400Diastolic blood zvjibkgv77 mm[Hg] Charan Casey Other [facility] [employer] Other 10-04-2022 14:00-0400Respiratory rate16 /minCharan Casey Other [facility] [employer] Other 10-04-2022 14:00-7360HzG8% (BldA) [Mass fraction]97 % Charan Casey Other [facility] [employer] Other 10-04-2022 14:00-0400Systolic blood hetghweq202 mm[Hg] Charan Casey Other [facility] [employer] Other 08-28-2022 19:56-0400Body lytdnn009.18 cmDO Charan Casey Work Phone: [facility]08-28-2022 19:56-0400 Body ijeegldtlwf55.1 [degF]DO Charan Casey Work Phone: [facility]08-28-2022 19:56-0400 Body zolmmv423.55 kgDO Charan Casey Work Phone: [facility]08-28-2022 19:56-0400 Diastolic blood jlgwytqj03 mm[Hg]DO Charan Casey Work Phone: [facility]08-28-2022 19:56-0400 Heart rate89 /Dean Casey Work Phone: [facility]08-28-2022 19:56-0400 Respiratory rate20 /Dean Casey Work Phone: [facility]08-28-2022 19:56-0400 SaO2% (BldA) [Mass fraction]98 %DO Charan Casey Work Phone: [facility]08-28-2022 19:56-0400 Systolic blood mm[Hg]DO Charan Casey Work Phone: [facility]06-09-2022 08:51-0400 Body xieiqz714.18 cmCharan Casey Work Phone: 1(113) [phone]-Siukc [facility] 250 DO Work Phone: 1(985) 224-513906-09-2022 08:51-0400Body mass index (BMI) [Ratio] 38.06 kg/q5OmbpjCharan Casey Work Phone: 1(343) [phone]-Wredf [facility] 250 DO Work Phone: 1(353) 257-635906-09-2022 08:51-0400Body surface area Derived from formula2.2 x2BquftCharan Casey Work Phone: 1(864) [phone]-Xweps [facility] 250 DO Work Phone: 1(883) 979-222106-09-2022 08:51-0400Body ydqgyj449.22 kgCharan Casey Work Phone: 1(868) [phone]-Tfzzi [facility] 250 DO Work Phone: 1(360) 735-448306-09-2022 08:51-0400Diastolic blood gzwdoexb87 mm[Hg] Charan Casey Work Phone: 1(709) [phone]-Uqyfb [facility] 250 DO Work Phone: 1(504) 910-541506-09-2022 08:51-0400Heart rate72 /minYeisonheather Dani Casey Work Phone: 1(946) [phone]-Xcrae [facility] 250 DO Work Phone: 1(247) 966-102306-09-2022 08:51-0400Systolic blood mm[Hg] Charan Dani Masseys Work Phone: 1(549) [phone]-Kwrlr [facility] 250 DO Work Phone: 1(570) 920-498806-01-2022 17:00-0400Body qwygbt865.18 cmChristopher Coco Other [employer] Other 06-01-2022 17:00-0400Body mass index (BMI) [Ratio] 38.52 kg/t9Msouapvirbz Coco Other [employer] Other 06-01-2022 17:00-0400Body jwwvlxucwgt37.1 [degF] Federico Sepulveda Other [employer] Other 06-01-2022 17:00-0400Body ayzjaq397.59 kgChristop Coco Other [employer] Other 06-01-2022 17:00-0400Diastolic blood bqizfxzu08 mm[Hg] Federico Sepulveda Other [employer] Other 06-01-2022 17:00-7478NhD7% (BldA) [Mass fraction]97 % Federico Sepulveda Other [employer] Other 06-01-2022 17:00-0400Systolic blood yzscvsbu319 mm[Hg] Federico Sepulveda Other [employer] Other 05-16-2022 11:30-0400Body nqurfo493.18 cmYeisonheather Casey Other [employer] Other 05-16-2022 11:30-0400Body mass index (BMI) [Ratio] 38.52 kg/y1Vdnae Kuns Other [employer] Other 05-16-2022 11:30-0400Body ikqdqh246.59 kgBryan Kuns Other [employer] Other 05-16-2022 11:30-0400Diastolic blood wedlcakw41 mm[Hg] Charan Casey Other [employer] Other 05-16-2022 11:30-0400Respiratory rate16 /minCharan Casey Other [employer] Other 05-16-2022 11:30-9733DcZ7% (BldA) [Mass fraction]99 % Charan Casey Other [employer] Other 05-16-2022 11:30-0400Systolic blood qamtdngp037 mm[Hg] Charan Casey Other [employer] Other 03-24-2022 17:00-0400Body mass index (BMI) [Ratio] 38.56 kg/e9Zltqt Sole Other [employer] Other 03-24-2022 17:00-0400Body urechiefhps63.2 [degF]Elpidio Sole Other [employer] Other 03-24-2022 17:00-0400Body vyzdly357.68 kgAbdul Sole Other [employer] Other 03-24-2022 17:00-0400Diastolic blood mm[Hg] Elpidio Sole Other [employer] Other 03-24-2022 17:00-0400Respiratory rate18 /minAbdul Sole Other [facility] [employer] Other 03-24-2022 17:00-0916NoJ6% (BldA) [Mass fraction]98 % Elpidio Sole Other [facility] [employer] Other 03-24-2022 17:00-0400Systolic blood mm[Hg] Elpidio Sole Other [facility] [employer] Other 03-24-2022 12:28-0400Body .18 cmCharan Louise Brysonbryn Work Phone: [phone]-Uvrjy [place] [employer] DO Work Phone: 1(164) 783-156103-24-2022 12:28-0400Body mass index (BMI) [Ratio] 38.37 kg/y1JgbkmCharan Casey Work Phone: 1(179) [phone]-Wshop [place] [employer] 250 DO Work Phone: 1(750) 982-556503-24-2022 12:28-0400Body surface area Derived from formula2.2 k4Blpsu Dani Masseybryn Work Phone: [phone]-Lqkmu [place] [employer] 250 DO Work Phone: 1(458) 295-728003-24-2022 12:28-0400Body eimazc217.13 kgCharan Casey Work Phone: [phone]-Fnybl [place] [employer] 250 DO Work Phone: 1(346) 213-589803-24-2022 12:28-0400Diastolic blood hyxacamx56 mm[Hg] Charan Casey Work Phone: [phone]-Zazth [facility] [employer] 250 DO Work Phone: 1(366) 839-299603-24-2022 12:28-0400Heart rate72 /minCharan Casey Work Phone: [phone]-Tarlz [place] [employer] 250 DO Work Phone: 1(250) 586-624703-24-2022 12:28-0400Systolic blood xsovfwmt874 mm[Hg] Charan Casey Work Phone: 1(815) [phone]-Vwvmm [facility] 250 DO Work Phone: 1(834) 115-674703-11-2022 09:45-0500Body guxphv424.18 cmCharan Casey Other [employer] Other 03-11-2022 09:45-0500Body mass index (BMI) [Ratio] 38.27 kg/p5RjjshCharan Casey Other [employer] Other 03-11-2022 09:45-0500Body zmwxek449.86 kgCharan Casey Other [employer] Other 03-11-2022 09:45-0500Diastolic blood tdrpbdfi34 mm[Hg] Charan Casey Other [employer] Other 03-11-2022 09:45-0500Respiratory rate18 /minCharan Casey Other [employer] Other 03-11-2022 09:45-4580YnD0% (BldA) [Mass fraction]95 % Charan Casey Other [employer] Other 03-11-2022 09:45-0500Systolic blood mm[Hg] Charan Casey Other [employer] Other 02-01-2022 17:20-0500Body iwtpri147.18 cmThierno Chatterjee Other [employer] Other 02-01-2022 17:20-0500Body mass index (BMI) [Ratio] 38.84 kg/m2Thierno Chatterjee Other [facility] [employer] Other 02-01-2022 17:20-0500Body fqmefl731.49 kgDale Chatterjee Other [facility] [employer] Other 01-04-2022 15:00-0500Body urqxel476.18 cmCharan Casey Other [facility] [employer] Other 11-02-2021 17:15-0400Body afhutr908.18 Josué Ortiz Other [facility] [employer] Other Encounters Encounter DateEncounter TypeCare ProviderFacilityStart: 07-27-2025 End: 87-19-1434Yjmigd flowsheetShaina Munroe DO Work Phone: [facility] 230Start: 07-27-2025 End: 66-60-7568Nrerfk flowsheetShaina Munroe DO Work Phone: [facility] 230Start: 07-27-2025 End: 59-63-0189Sfsegu outpatient visit 25 minutesAlllucia Munroe DO Work Phone: [facility] 230Comment on above:Type 2 diabetes mellitus with peripheral neuropathy (HCC) [...] index (BMI) of35.0 to 35.9 in adult ([facility]-H[facility])Start: 07-27-2025 End: 85-96-6559evwqarpouuEQMUSBH M PETZNICKNot AvailableStart: 07-12-2025 End: 51-65-0146fgrpjnvzydGrfjg Kuns DO Work Phone: [facility] Work Phone: Start: 07-12-2025 End: 44-63-4774Zlnzcvx encounter procedureCharan Louise DO-[facility] Work Phone: Start: 77-09-7749Yhz-patient / Non-visitMojunito Lyons MD-[facility] Work Phone: Start: 81-06-7804Qti-patient / Non-visitMojunito Lyons MD-[facility] Work Phone: Start: 01-70-0899Fpm-patient / Non-visitGustavo Cuevas DO -[facility] Work Phone: Start: 06-21-2025 End: 33-79-7336wyejhtphkvXtwia Kuns DO Work Phone: [facility] Work Phone: Start: 06-21-2025 End: 42-24-1350Wwcpzdx encounter procedureBlas Louise MD-[facility] Work Phone: Start: 40-99-1849Svg-patient / Non-visitBlas Louise MD-[facility] Work Phone: Start: 06-14-2025 End: 88-30-1376seerqtrqlaDqygk Kuns DO Work Phone: [facility] Work Phone: Start: 06-14-2025 End: 06-93-5418Mmlqttc encounter procedureBlas Louise MD-[facility] Work Phone: Start: 06-05-2025 End: 00-52-7826Ezdsflb encounter procedurePeHermosillo DPM [place]-[facility]tr[facility]: 06-05-2025 End: 94-69-8377logqarzyjoIqsvw Kuns DO Work Phone: [facility] Work Phone: start: 05-31-2025 End: 01-38-2472jqsdhanhxkYmyrt Kuns DO Work Phone: [facility] Work Phone: Start: 05-31-2025 End: 48-95-2751Oxgknrk encounter procedureKyraharsh Diana Louise MD-[facility] Work Phone: Start: 05-15-2025 End: 11-63-6978Oxgxlo outpatient visit 25 minutesShaina Munroe DO Work Phone: [facility] FM 230Comment on above: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 [...] index (BMI) of35.0 to 35.9 in adult ([facility])Start: 05-15-2025 End: 23-50-5982ilyfsinxxnATWUJVX M PETZNICKNot AvailableStart: 03-06-2025 End: 24-70-5960yxnjtqldfuVdwiw Kuns DO Work Phone: [facility] Work Phone: Start: 03-06-2025 End: 64-69-0632Wlnqnrr encounter procedureCharan Casey DO Work Phone: [facility] Work Phone: Start: 02-16-2025 End: 50-87-1560jazeymrijkMpxqp Kuns DO Work Phone: [facility] Work Phone: Start: 02-16-2025 End: 31-96-0391Kmecuwy encounter procedureCharan Casey DO Work Phone: [facility] Work Phone: Start: 02-14-2025 End: 14-13-7165hhiynjynvzGCLVCSG Carmen PAREDESLizabeth AvailableStart: 44-46-0250Pfq- patient / Non-visitBryan Brysons DO Work Phone: [facility] Work Phone: Start: 02-01-2025 End: 02-22-2086nfslhoqvbgJkmfj Kuns DO Work Phone: [facility] Work Phone: Start: 02-01-2025 End: 29-53-4367Qkjsszi encounter procedureBryan Brysons DO Work Phone: [facility] Work Phone: Start: 01-31-2025 End: 16-37-6072tlmfaiwcpoBxfbd Kuns DO Work Phone: [facility] Work Phone: Start: 01-31-2025 End: 49-94-5792Teurmvpxho RecurringBryan Brysons DO Work Phone: [facility]-Physical Therapy [place]Start: 23-20-4285Eefqaazpzb RecurringBryan Brysons DO Work Phone: [facility]-Physical Therapy [place]Start: 01-26-2025 End: 71-78-4229miyegnjmefXnkqs Kuns DO Work Phone: [facility] Work Phone: Start: 01-26-2025 End: 74-18-2117Tmxtodx encounter procedureBryan Brysons DO Work Phone: [facility] Work Phone: Start: 76-22-4046Pycdpbllbh RecurringBryan Brysons DO Work Phone: [facility]-Physical Therapy [place]Start: 01-23-2025 End: 80-69-8600Cmkyhwl encounter procedureBryheather Brysons DO Work Phone: [facility]-MRI [address] Closed Work Phone: Start: 01-23-2025 End: 62-81-5477nnjyiufgtqPzgds Brysons DO Work Phone: [facility] Work Phone: Start: 01-18-2025 End: 96-92-8679twqvjsuqfiGshql Kuns DO Work Phone: [facility] Work Phone: Start: 01-18-2025 End: 80-22-5716Axjwadl encounter procedureBryan Brysons DO Work Phone: [facility] Work Phone: Start: 48-92-4236Ufidcdfwwy RecurringBryan Brysons DO Work Phone: [facility]-Physical Therapy [place]Start: 01-09-2025 End: 09-16-6121Jipyiukoy encounterAlllucia Carmen Ketansebastian DO Work Phone: [facility] FM 230Start: 41-66-3377Qpo-patient / Non-visitBryheather Masseys DO Work Phone: [facility] Work Phone: Start: 01-09-2025 End: 42-45-9728ischvyjugyWppzi Kuns DO Work Phone: [facility] Work Phone: Start: 01-09-2025 End: 93-17-3026Ixkxxnq encounter procedureBryan Brysons DO Work Phone: [facility] Work Phone: Start: 05-80-4607Idgdetrzcv RecurringBryheather Brysons DO Work Phone: [facility]-Physical Therapy [place]Start: 12-29-2024 End: 20-90-9745iacrynwltjQshyv Brysons DO Work Phone: [facility] Work Phone: Start: 12-29-2024 End: 04-84-0682Nhhzrnh encounter procedureBryheather Brysons DO Work Phone: [facility] Physician [facility] Orthopedics Work Phone: Start: 12-26-2024 End: 64-46-9328xqltbowgdpZfttb Kuns DO Work Phone: [facility] Work Phone: Start: 12-26-2024 End: 64-34-7539Gfjlzfm encounter procedureBryheather Masseys DO Work Phone: [facility] Physician [facility] Pain Mgmt BC Work Phone: Start: 17-88-4339Wtkesvcgnr RecurringCharan Masseys DO Work Phone: [facility]-Physical Therapy [place]Start: 12-09-2024 End: 47-43-8572nrrnktfclqXswgq Kuns DO Work Phone: [facility] Work Phone: Start: 12-09-2024 End: 27-02-2615Twtxexs encounter procedureBryheather Brysons DO Work Phone: [facility] Work Phone: Start: 12-08-2024 End: 02-93-8395Iglhmtz encounter procedureBryan Brysons DO Work Phone: [facility] CtrStart: 12-08-2024 End: 94-33-7570iwuyqbugbdXfohc Kuns DO Work Phone: [facility] Work Phone: Start: 93-03-2239Zmypspxvfi RecurringBryheather Casey DO Work Phone: [facility]-Physical Therapy [place]Start: 56-23-7537Zjt-patient / Non-visitCharan Casey DO Work Phone: [facility] Pain Mgmt BC Work Phone: Start: 2024 End: 96-86-6020Tdcbkausj to same day surgery centerCharan Casey DO Work Phone: [facility]-Digestive Health Work Phone: Start: 2024 End: 87-42-0484oiukwjnprgWufpid FelterFacility:[facility] Start: 10-25-2024 End: 39-51-3205Orecysk encounter procedureCharan Casey DO Work Phone: [facility] Orthopedics Work Phone: Start: 10-25-2024 End: 96-01-7114dnpcgusugvXeeah A BaileyFacility:[facility] Hospitaltart: 10-19-2024 End: 46-96-9308ftpnxxrckcInjbd Kuns DO Work Phone: 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 (CMS/HCC); Type 2 diabetes mellitus with both eyes affected by mild nonproliferative retinopathy without macular edema, with long-term current use of insulin (CMS/HCC); Long-term insulin use (CMS/HCC); Class 2 severe obesity due to excess calories with serious comorbidity and body mass index (BMI) of39.0 to 39.9 in adult (CMS/HCC)Start: 10-17-2024 End: 41-43-9561loyjqrhkxyFLCXWWZ M PETZNICKNot AvailableStart: 15-76-5663Wkq- patient / Non-visitDO Charan Casey Work Phone: [facility] Work Phone: Start: 09-20-2024 End: 05-03-8500Msomlhgzh to same day surgery centerDO Charan Casey Work Phone: [facility]-Digestive Health Work Phone: Start: 09-20-2024 End: 12-23-2941iubbqotzyqDC Charan Casey Work Phone: [facility] Work Phone: Start: 95-59-9552Nbo-patient / Non-visitDO Charan Casey Work Phone: [facility] [place] Work Phone: Start: 09-12-2024 End: 02-07-4545dydnfknjhfAA Charan Casey Work Phone: [facility] Work Phone: Start: 09-12-2024 End: 92-39-6495Ktczlsq encounter procedureDO Charan Casey Work Phone: [facility] Work Phone: Start: 09-07-2024 End: 57-39-3688Qptkvwi encounter procedureDO Charan Casey Work Phone: [facility] Work Phone: Start: 09-07-2024 End: 54-24-7410nrlakjsnitOV Bryan Kuns Work Phone: [facility] Work Phone: Start: 09-02-2024 End: 31-97-7838exfytulchqRyubc KunsFacility:[facility] Start: 53-29-0720Lfzjslvqll RecurringDO Charan Casey Work Phone: [facility]-Physical Therapy [place]Start: 08-25-2024 End: 17-60-6505Yekwgd outpatient visit 25 minutesRosalinda Torres MD Work Phone: [facility] CenterComment on above:Coronary artery disease, unspecified vessel or lesion type, unspecified whether angina present, unsp ecified whether sycuan or transplanted heart; Elevated coronary artery calcium score; Essential hypertension; Hyperlipidemia, unspecified hyperlipidemia type; Type 2 diabetes mellitus without complication, with long-term current use of insulin (Multi); 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; Obstructive sleep apnea syndrome; Class 2 obesity with body mass index (BMI) of 37.0 to 37.9 in adult, unspecified obesity type, unspecified whether serious comorbidity presentStart: 06-13-2024 End: 14-87-8852ledaexyuqvJH Bryan Kuns Work Phone: [facility] Work Phone: Start: 06-13-2024 End: 57-88-4596Yhoptty encounter procedureDO Charan Casey Work Phone: [facility] Work Phone: Start: 06-08-2024 End: 06-87-7447mxrlealcuwWK Bryan Kuns Work Phone: [facility] Work Phone: Start: 06-08-2024 End: 12-90-5453Bhlpbga encounter procedureDO Charan Casey Work Phone: [facility] Sleep Lab Work Phone: Start: 93-46-3399Cny-patient / Non-visitDO Charan Casey Work Phone: [facility] [place] Work Phone: Start: 05-31-2024 End: 12-70-0653Vxfmnohad to same day surgery centerDO Charan Casey Work Phone: [facility]-Digestive Health Work Phone: Start: 05-31-2024 End: 52-44-6554wneuphdfepKP Charan Casey Work Phone: [facility] Work Phone: Start: 05-23-2024 End: 71-60-7870kdzzwqcpftXX Charan Casey Work Phone: [facility] Work Phone: Start: 05-23-2024 End: 93-04-6596Xwifbzc encounter procedureDO Charan Casey Work Phone: [facility] Pain Management [place] Work Phone: Start: 41-59-5772Dfz-patient / Non-visitDO Charan Casey Work Phone: [facility] [place] Work Phone: Start: 33-49-1545Xfj-patient / Non-visitDO Charan Casey Work Phone: [facility] [place] Work Phone: Start: 36-14-3069Avv-patient / Non-visitDO Charan Casey Work Phone: [facility] Work Phone: Start: 03-17-2024 End: 72-11-9091duzuysspycSR Charan Casey Work Phone: [facility] Work Phone: Start: 03-17-2024 End: 67-11-5785Eehyipg encounter procedureDO Charan Casey Work Phone: [facility] Work Phone: Start: 03-05-2024 End: 47-28-7526sicudzxcfjKH Charan Casey Work Phone: [facility] Work Phone: Start: 03-05-2024 End: 76-53-1460Fhnpoud encounter procedureDO Chraan Casey Work Phone: [facility] [place] Work Phone: Start: 03-01-2024 End: 20-62-6492ppfpjenxtwTL Charan Casey Work Phone: [facility] Work Phone: Start: 03-01-2024 End: 76-30-9034Kolyxyb encounter procedureDO Charan Casey Work Phone: [facility] Physician Group-[facility] Nephrology Work Phone: Start: 02-29-2024 End: 29-81-4598fsqmiwxtwsGU Charan Casey Work Phone: [facility] Work Phone: Start: 02-29-2024 End: 47-28-0918Wwvgqna encounter procedureDO Charan Casey Work Phone: [facility] [place] [place]tart: 18-59-5135Riz-patient / Non-visitDO Charan Casey Work Phone: [facility] Work Phone: Start: 02-22-2024 End: 08-50-3917bmjodgjhesTIOPZH [facility] Hospitalart: 02-22-2024 End: 32-54-9009Ymsntl outpatient visit 25 minutesRosalinda Torres MD Work Phone: [facility] on above:Coronary artery disease, unspecified vessel or lesion type, unspecified whether angina present, unsp ecified whether sycuan or transplanted heart (Primary Dx); Essential hypertension; 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; Hyperlipidemia, unspecified hyperlipidemia type; Obstructive sleep apnea syndrome; Class 2 obesity with body mass index (BMI) of 37.0 to 37.9 in adult, unspecified obesity type, unspecified whether serious comorbidity present; Insulin-requiring or dependent type II diabetes mellitus ([facility])Start: 74-49-8438Zhb-patient / Non-visitDO Charan Casey Work Phone: [facility] Phys[facility] GroupUniversity [facility] Work Phone: Start: 38-77-6502Sjw-patient / Non-visitDO Charan Casey Work Phone: [facility] GroupUniversity [facility] Work Phone: Start: 02-04-2024 End: 89-69-3027Unvmxps encounter procedureDO Charan Casey Work Phone: [facility] Pain Management [facility] Work Phone: Start: 01-11-2024 End: 56-94-1038ukzxsmgvhiTnegf Kuns Other [employer] Other Start: 35-03-0122Pfwzimbyx encounterCharan Waters [facility] [place]Start: 12-31-2023 End: 87-64-0307flkpgeqvbtBkrop Kuns Other [employer] Other Start: 97-50-1508Gweggzpxo encounterCharan Waters [facility] [place]Start: 12-30-2023 End: 67-33-5109Jdfegvc encounter procedureDO Charan Casey Work Phone: [facility] CtrStart: 12-30-2023 End: 72-51-9760jilezkeumwFW Charan Casey Work Phone: [facility] Work Phone: Start: 37-17-2974Mtsmwa outpatient visit 15 minutes Charan Waters [facility] [place]Start: 12-30-2023 End: 57-10-1448Bxxerop encounter procedureDO Charan Casey Work Phone: [facility] Group-Start: 11-26-2023 End: 82-48-3332cbdeaibmkwQQ Charan Casey Work Phone: [facility] Work Phone: Start: 11-26-2023 End: 49-13-1321Vnkjziy encounter procedureDO Charan Casey Work Phone: [facility]-Lab [facility] Hospitaltart: 11-06-2023 End: 68-55-5855jhwvumozmnWkvuo Kuns Other [employer] Other Start: 83-78-6573Wkqhmgegt encounterCharan DelarosaG Referral CoordinatorStart: 64-18-0686Tzvirazl care educationDaRed Bay Hospital Coordinated Care ClinicStart: 35-83-3622Sdyletebo by computer linkDaCentral [facility] Coordinated Care ClinicStart: 11-05-2023 End: 63-31-8630khqaebbnclAJ Charan Casey Work Phone: [employer] Other Start: 11-05-2023 End: 81-61-4627Orpbiljvsy RecurringDO Charan Casey Work Phone: [facility] Work Phone: Start: 32-38-6285Fmbukzrgdk RecurringDO Charan Casey Work Phone: [facility] Work Phone: Start: 11-03-2023 End: 36-97-9866inlfovseogUypfr Kuns Other [employer] Other Start: 58-97-1982Fhvdjhkxq encounterBryheather Waters [facility] [place]Start: 10-28-2023 End: 07-74-1760eykjzwjxegBiosgu Felter Other [employer] Other Start: 27-96-2674Lnkima outpatient visit 15 minutes Blas FeltNatalie Pain Management [place]Start: 53-69-7692Jjxazhawc encounter Blas FelterFPG Pain Management [place]Start: 10-28-2023 End: 05-43-8528Lenutkj encounter procedureDO Charan Casey Work Phone: [facility] [place] Work Phone: Start: 10-21-2023 End: 13-56-3118sfvhozpiezEjpvfq [place] Other [facility] [employer] Other Start: 96-13-4680Ceqabw outpatient visit 15 minutes Blas BellamyFPRuthie Urgent Care Munson Medical Centertart: 10-21-2023 End: 07-37-6867Psxvrxn encounter procedureDO Charan Casey Work Phone: [facility] [place] Work Phone: Start: 10-19-2023 End: 50-70-5459oczuhdztoxFdzbut Felter Other [employer] Other Start: 84-94-7249Axdizyfig encounterThomas FelterFPG Pain Management [place]Start: 10-07-2023 End: 07-26-9463vvuejrocfhUhhpf Kuns Other [employer] Other Start: 56-70-2914Dkawelijf encounterCharan Waters Family [facility] [place]Start: 10-06-2023 End: 56-06-7740Fycrfbqkk to same day surgery centerDO Charan Casey Work Phone: [facility]-Digestive Health Work Phone: Start: 10-06-2023 End: 30-02-6705earlzquweoNX Charan Casey Work Phone: [facility] Work Phone: Start: 09-23-2023 End: 83-10-0164ysaoqjjblmGrkyrz Felter Other [employer] Other Start: 27-21-2897Lzxvis outpatient visit 15 minutes Blas Berger Pain Management [place]Start: 09-15-2023 End: 41-14-0501qpdwnmixwgKpfpu Sole Other [employer] Other Start: 43-56-2865Ehhrji outpatient visit 25 minutes Elpidio QadirFPG NephrologyStart: 09-14-2023 End: 56-64-0385zaftgivmkfCR [place] Kuns Work Phone: [facility] Work Phone: Start: 09-14-2023 End: 82-01-3186Pvyaros encounter procedureDO Charan Casey Work Phone: [facility] CenterStart: 09-08-2023(Procedure) ShortThomas FelterikaOhiohealth Mansfield Hospital OutPtStart: 09-08-2023 End: 64-77-2800Zuimyxmkh to same day surgery centerDO Charan Casey Work Phone: [facility]-Digestive Health Work Phone: Start: 09-08-2023 End: 60-11-4415oglhzmbvauJA Charan Casey Work Phone: [facility] Work Phone: Start: 08-25-2023 End: 75-31-5450zoqvdymvaoRlmn Asaad Other [employer] Other Start: 80-48-7296Ikikmhwgk encounterImaandrea AsaadFPG Referral CoordinatorStart: 08-18-2023 End: 37-55-1837opbvxlhjvbXbfhb Kuns Other [employer] Other Start: 72-61-1859Juawnpiim encounterCharan CaseyFPG Family Medicine [place]Start: 08-17-2023 End: 03-35-5478szapkbxoiyCuzyzp Felter Other [facility] [employer] Other Start: 47-89-9178Fllidj outpatient visit 25 minutes Blas Berger Pain Management [place]Start: 08-17-2023 End: 43-56-2372Insfctl encounter procedureDO Charan Casey Work Phone: [facility]-X[facility] Start: 40-73-3542Ahbrry outpatient visit 15 minutesDale BraunEmerald-Hodgson Hospital NeurosurgeryStart: 08-11-2023 End: 70-06-5410ovacsihihuJU Charan Casey Work Phone: [facility] Work Phone: Start: 08-11-2023 End: 90-04-1214Xlnewhd encounter procedureDO Charan Casey Work Phone: [facility] CtrStart: 08-05-2023 End: 33-53-0808cicpygvvqyKznwh Kuns Other [employer] Other Start: 40-15-3929Mhunrv outpatient visit 25 minutes Charan Waters [facility] [place]Start: 07-02-2023 End: 64-70-3757xnbqarxnkmTuxcs Kuns Other [place] [employer] Other Start: 30-50-5895Vahzeggqt encounterCharan Waters Family Medicine [place]Start: 06-08-2023 End: 09-35-0886ijkzaffosoJK Charan Casey Work Phone: [facility] Work Phone: Start: 06-08-2023 End: 99-43-5173Odrvnnicbf RecurringDO Charan Casey Work Phone: [facility] Hospitaltart: 05-28-2023 End: 27-41-3629fqnikogtebNhcq F[place] Other [place] [employer] Other Start: 82-51-3000Ditirutj care educationDa Fitt [facility] Hospitaltart: 58-92-8923Okwxlfzgxa RecurringDO Charan Casey Work Phone: [facility]-Diabetes Care Center Work Phone: Start: 78-58-2632Mjperw outpatient visit 25 minutes Charan Waters [facility] [place]Start: 05-19-2023 End: 09-61-5741ldjluhfdvuFE Charan Casey Work Phone: [facility] Work Phone: Start: 05-19-2023 End: 55-54-4994Sfltndc encounter procedureDO Charan Casey Work Phone: [facility] CtrStart: 05-05-2023 End: 33-32-2132kvwngcdirlHvpdg Kuns Other [employer] Other Start: 03-35-5623Vlefhdxdz encounterYeisonheather DelarosaG Family Medicine [place]Start: 29-14-5417Zlifkr outpatient visit 25 minutesCharan Dani Brysonbryn Work Phone: [phone]-Klbus [facility] [address] DO Work Phone: Start: 21-35-9182pobqjfabpkNnulatoryDr. Charan Casey Facility:[id number]: 04-13-2023 End: 76-64-5891kazpzdyfwkJEODV D OUTAGAMIE COUNTY HEALTH CENTERFacility:D9Mjxbo: 04-07-2023 End: 83-55-9662bixjwitetgZGAIDU R ZIEBERFacility:Y8Tzltx: 94-48-1481Iqrhctlcq for preprocedural laboratory examinationPETER D [facility] Start: 04-06-2023 End: 13-17-3070lotwfkwkhdMcsuy Kuns Other [employer] Other Start: 21-19-1074Lcplveyko encounterYeisonheather BrysonRachelG Family Medicine [place]Start: 05-42-7997Tczgdf outpatient visit 25 minutesCharan MasseybrynERICG Family Medicine [place]Start: 03-31-2023 End: 58-41-9566dgpzwzwhslWMMJT D [facility] [employer] Other Start: 03-31-2023 End: 93-30-1483Hwvlkvedd for preprocedural laboratory examinationPETER D OUTAGAMIE COUNTY HEALTH CENTERFacility:K6Xbuxb: 03-26-2023 End: 51-78-1385tkukzmlupnPnzdl Kuns Other [employer] Other Start: 45-69-9661Ayirrhsjj encounterYeisonheather BrysonRachelG Family Medicine [place]Start: 03-23-2023 End: 90-15-0289gdsswrhqesCYUBCP R ZIEBERFacility:R3Hlwhc: 03-10-2023 End: 85-08-0181unpehhdaaaVzytj Sole Other [employer] Other Start: 36-96-3618Malmcn outpatient visit 25 minutes Elpidio QadirFPG NephrologyStart: 03-06-2023 End: 88-59-7226rctwofxswyPY Charan Casey Work Phone: [facility] Work Phone: Start: 03-06-2023 End: 62-15-3300Kjlbhqw encounter procedureDO Charan Casey Work Phone: [facility]-Lab [facility] Hospitaltart: 24-23-7772Ukeobp outpatient visit 15 minutesChristopher CocoDetwiler Memorial Hospital Ctr SouthStart: 05-32-1446Nljwhfmnt encounterCharan ODOM Family Medicine [place]Start: 03-04-2023 End: 86-14-9349vbyvkqdaipRH Charan Casey Work Phone: [facility] [employer] Other Start: 03-04-2023 End: 88-79-0219Hkdihtz encounter procedureDO Charan Casey Work Phone: [facility]-Sleep Lab Work Phone: Start: 03-03-2023 End: 04-65-9623ooxznjcwtpWIJXNN R ZIEBERFacility:J2Ioghz: 02-17-2023 End: 17-97-5166rfntclooiuHQJRY V WESTFacility:P6Vxuun: 02-16-2023 End: 94-55-6108hbdpcxbqakDwyvt Kuns Other [employer] Other Start: 42-63-4010Obacrgjpl encounterBryheather DelarosaG Family Medicine [place]Start: 02-05-2023 End: 66-79-5700rlulbaxgoiYmmgt Kuns Other [employer] Other Start: 84-20-5465Okmukfdab encounterCharan CaseyRuthie Family Medicine [place]Start: 02-03-2023 End: 07-73-0170aljuxmgjubFLSHE V WESTFacility:L0Fdbmo: 01-27-2023 End: 58-92-9829Dmlgdvl encounter procedureDO Charan Casey Work Phone: [facility] Work Phone: Start: 01-27-2023 End: 73-86-7797xrlqtnftrqPJ [place] Kuns Work Phone: [facility] Work Phone: Start: 13-85-6173Gfqoum Injection one Vaccine (Admin Chg)[facility] Care ClinicStart: 01-20-2023 End: 35-95-8111gsdboatptzRTTLHQ R ZIEBERFacility:B5Rxpcr: 01-19-2023 End: 67-71-8932cjoevapqnyWwuyj Kuns Other [employer] Other Start: 84-66-2886Zpmqzhffr encounterCharan Waters Family Medicine CastaliaStart: 12-29-2022 End: 46-17-6479qftzooivyyEOYXOV R ZIEBERFacility:X1Gwiwx: 15-47-9189Fjxsxmphr for preprocedural cardiovascular examinationPETER D [facility] HospitalStart: 97-28-6716Jxactmqcn for preprocedural laboratory examinationPETER D [facility] Hospitaltart: 12-23-2022 End: 39-90-1999ebdwzsizmyXPVNL D [facility] CENTERANDERFacility:T6Fejtg: 12-23-2022 End: 93-57-1808Ismigkbex for preprocedural cardiovascular examinationPETER D OUTAGAMIE COUNTY HEALTH CENTERFacility:U4Dqgkk: 11-26-2022 End: 64-73-1324vbuuclvxxtRNFST V WESTFacility:H1Hxlad: 11-12-2022 End: 53-43-0475bolqctcmtjTVZIWN R ZIEBERFacility:K6Jwdpb: 90-55-9152azsqdfcppk Dr. Charan CaseyFacility:[address]321Fbdql: 10-28-2022([facility] INJ) [facility] Injection [facility] Coord[facility] Care ClinicStart: 10-28-2022 End: 56-38-6300rxuafmsopkCU Charan Casey Work Phone: [facility] Work Phone: Start: 10-28-2022 End: 25-67-7558Gbefkxu encounter procedureDO Charan Casey Work Phone: [facility] Coordinated CareStart: 10-16-2022([facility] C Vac) [facility] Covid VaccineDaRed [facility] Hospital Coordinated Care ClinicStart: 10-16-2022([facility] INJ) [facility] InjectionDawn [facility] Coordinated Care ClinicStart: 37-02-6656Szamqpsmb encounterPopeye ODOM NephrologyStart: 10-16-2022 End: 56-45-8734cfsrpodpeyGT Bryan Kuns Work Phone: [facility] [employer] Other Start: 10-16-2022 End: 45-41-4140Nbhfppt encounter procedureDO Charan Casey Work Phone: [facility] Coord[facility] CareStart: 10-15-2022 End: 17-63-4302xnzxozdfguMI Bryan Kuns Work Phone: [facility] Work Phone: Start: 10-15-2022 End: 16-71-0643Vcmoarl encounter procedureDO Charan Casey Work Phone: [facility]-MRI Str[address] RdStart: 10-13-2022 End: 29-87-5375tlymhrlilsMW Bryan Kuns Work Phone: [facility] Work Phone: Start: 10-13-2022 End: 34-68-0541Fmyyctm encounter procedureDO Charan Casey Work Phone: [facility]-MRI Str[address] RdStart: 09-24-2022 End: 85-02-0904vveeoqpfnuCdhto Sole Other [employer] Other Start: 28-86-6719Lghdgr outpatient visit 25 minutes Elpidio QadirFPG [facility]phrology Clinic InezStart: 09-02-2022 End: 53-06-0736oixlybvcloUntup Kuns Other [employer] Other Start: 42-18-4856Qnjupa outpatient visit 25 minutes [facility] CastaliaStart: 08-13-2022 End: 74-63-9839Lbutqby encounter procedureDO Charan Casey Work Phone: [facility]-Lab [facility] Hospitaltart: 08-07-2022 End: 90-03-7637esfknpcmjpQidfd Kuns Other [facility] [employer] Other Start: 79-96-9810Gjwyjchap encounterCharan Waters Family Medicine CastaliaStart: 07-27-2022 End: 26-52-0528Wlwclcetb department patient visitDO Charan Casey Work Phone: [facility]-Emergency RoomStart: 07-16-2022 End: 44-70-0165tjffwrvdhjKzodj Kuns Other [employer] Other Start: 58-25-5843Abjmmmqie encounterCharan Waters Family Medicine CastaliaStart: 07-02-2022 End: 95-17-3505hgnmifaunyVcqpv Kuns Other [employer] Other Start: 63-29-5586Fehfljfdx encounterCharan MasseysFPG Family Medicine CastaliaStart: 33-40-4211Iflvou outpatient visit 25 minutesCharan Casey Work Phone: [phone]-Bsroq [facility] 250 DO Work Phone: Start: 04-30-2022 End: 57-45-7375lydnhrazdfOetsbzsdozd Coco Other [facility] [employer] Other Start: 89-35-6208Rojvws outpatient visit 10 minutes Federico BoschUniversity Hospitals Elyria Medical CenterStart: 04-14-2022 End: 02-52-7054wsedthijseOwbgm Kuns Other [facility] [employer] Other Start: 47-57-4621Cnijpa outpatient visit 25 minutes Charan CaseyRuthie Family Medicine CastaliaStart: 04-07-2022 End: 99-21-6023iyebqollznYpjyj Kuns Other [facility] [employer] Other Start: 76-62-9846Fgeobeuiu encounterBryheather BrysnosFPG Family Medicine CastaliaStart: 04-02-2022 End: 02-29-3901tcbgmgyiegRcjvf Kuns Other [facility] [employer] Other Start: 16-04-1838Vxxzgttys encounterBryheather MasseysFPG Family Medicine CastaliaStart: 03-31-2022 End: 79-66-8981qyvhkchkktFgnbv Kuns Other [employer] Other Start: 82-14-6095Keiyyyejg encounterBryheather MasseysFPG Family Medicine CastaliaStart: 34-47-2870PJCACLTUZ, Provider: Rosalinda Torres, Status: Pen, Time: 1:00 PMCharan Dani Casey Work Phone: [phone]-Pnyqc [facility] 250 DO Work Phone: Start: 13-17-1823Htvdk UpdateYeisonheather Casey Work Phone: [phone]-Bstel [facility] 250 DO Work Phone: Start: 03-13-2022 End: 67-14-0003ceixpsrasfIecsd Kuns Other [employer] Other Start: 77-57-9105Ueputbkjm encounterCharan DelarosaG Family Medicine CastaliaStart: 70-55-4801Jrwug UpdateCharan Dani Casey Work Phone: [phone]-Hzplh [facility] 250 DO Work Phone: Start: 03-07-2022 End: 30-48-0102cormiovpetHwxv Fitt Other [employer] Other Start: 43-58-0127Wmvtscota encounterRenée Angelo Coordinated Care ClinicStart: 03-04-2022 End: 50-71-1436liqhvwbzseWznhf Kuns Other [employer] Other Start: 29-47-8376Zgpguigdl encounterCharan DelarosaG [facility] CareStart: 02-20-2022 End: 44-44-3952segaxlydcwLordq Sole Other [employer] Other Start: 14-97-3416Xbgifz outpatient visit 25 minutes Elpidio QadirFPG NephrologyStart: 02-10-2022 End: 00-97-5934niljcyewlmCtciz Kuns Other [employer] Other Start: 06-89-2514Tkqkvuihn encounterBryheather CaseyFPG Family Medicine CastaliaStart: 02-07-2022 End: 44-48-5343ctdphaytneXrrtp Kuns Other [employer] Other Start: 39-18-1846Jqahwx outpatient visit 25 minutes Charan CaseyFPG Family [facility] CastaliaStart: 02-05-2022 End: 90-89-6952xsukeeqsfoEewim Kuns Other [employer] Other Start: 08-43-0196Pukxsmalo encounterBryheather MasseysFPG Family Medicine CastaliaStart: 01-21-2022 End: 75-19-4635uqkabuflgbXtaks Kuns Other [employer] Other Start: 56-18-1284Exhixnomm encounterBryheather CaseyFPG Family Medicine CastaliaStart: 12-31-2021 End: 74-09-4060rylxjtxketCoqd Chatterjee Other [employer] Other start: 89-25-6816Uadxgo outpatient visit 15 minutes Thierno ChatterjeeRuthie [facility] HospitalStart: 12-07-2021 End: 98-34-4446pbjkgwgpetXwrqy Kuns Other [employer] Other Start: 55-05-9613Wxxxcjdhh encounterBryheather CaseyFPG Family Medicine CastaliaStart: 12-06-2021 End: 10-93-3023pxhvdsvsrsWaqxb Kuns Other [employer] Other Start: 45-00-1328Hwpavabif encounterBryheather CaseyFPG [facility] CareStart: 12-03-2021 End: 17-39-2602cgvffofxawKmbjr Kuns Other [facility] [employer] Other Start: 69-20-5779Wcfmcw outpatient visit 15 minutes Charan Waters [facility] CastaliaStart: 10-01-2021 End: 00-08-4857ubipnkgxboTagmkw Felter Other [facility] [employer] Other Start: 08-85-4440Coxerq outpatient visit 25 minutes Blas [facility] [place] End: 22-23-5241Lvedebu encounter statusCharan Casey Work Phone: [phone]-Pccul [facility] 250 DO Work Phone: Procedures DateProcedureProcedure DetailPerforming ClinicianStart: 48-45-5953Wrxcrcja Identification OnlyCharan Casey DO Work Phone: Start: 12-64-8786Q-ray of both feetCharan Casey DO Work Phone: Start: 37-38-6337Zqjuawslgi glycosylated f9aHwmiafb Carmen Petznick DO Work Phone: Start: 11-13-5059HTD of right shoulderCharan Casey DO Work Phone: Start: 67-80-5500RVT (POC)Charan Casey DO Work Phone: Start: 92-92-9898Trmpp chest X-rayCharan Casey DO Work Phone: Start: 84-45-3492Gvjdw anesthetic lumbar facet joint nerve blockCharan Casey DO Work Phone: Start: 01-88-6931Dxqfb X-ray of right shoulderCharan Casey DO Work Phone: Start: 44-97-8139Pzklsbaohe glycosylated h0gAsvowsg M Petznick DO Work Phone: Start: 34-92-4694Xigxg anesthetic sacral epidural blockDO Charan Casey Work Phone: Start: 44-59-1490Jhkmqztwd mammography of bilateral breastsDO Charan Casey Work Phone: Start: 36-14-6764Qswsacvpx of local anesthetic into sacroiliac jointDO Charan Casey Work Phone: Start: 18-62-5654FQA of lumbar spine with contrastDO Charan Casey Work Phone: Start: 60-29-6804Vwiad cultureDO Charan Casey Work Phone: Start: 23-55-9660Qncgf chest X-rayDO Charan Casey Work Phone: Start: 23-53-1036Aruimza of placement of stent for coronary artery disease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Rosalinda Torres MD Work Phone: Start: 17-02-6935Simybws of cholecystectomyS/P laparoscopic cholecystectomyAllison Carolina BASSETT Work Phone: Start: 03-61-3888Qbeksxpng colonoscopyDO Charan Casey Work Phone: Start: 27-72-3982LwmnvwbtuyoJevwsi Ibrahim MD Work Phone: Start: 34-66-0259Xqngqcepz of local anesthetic into sacroiliac jointDO Charan Casey Work Phone: Start: 07-39-5625Lbxyw X-ray of right hipDO Charan Casey Work Phone: Start: 94-83-2943I-ray of lumbar spine, six views including bending viewsDO Charan Casey Work Phone: Start: 08-49-3037Zewjc chest X-rayDO Charan Casey Work Phone: Start: 67-19-9239Leqfgnziues of thoracic spineDO Charan Casey Work Phone: Start: 96-77-2261Z-ray of lumbar spine, four or more viewsDO Charan Casey Work Phone: Start: 54-90-4628Awkzg cultureDO Charan Casey Work Phone: Start: 85-48-2490XBP of right ankleDO Charan Casey Work Phone: Start: 31-99-5030RJM of right footDO Charan Casey Work Phone: Start: 67-74-6312PWC of left ankleDO Charan Casey Work Phone: Start: 53-85-4431YOK of left footDO Charan Casey Work Phone: Start: 12-60-2911KD of bilateral feetDO Charan Casey Work Phone: Start: 97-65-7489Bdqkw volume recorder pneumoplethysmographyDO Charan Casey Work Phone: Start: 40-07-1077Q-ray of left footDO Charan Casey Work Phone: Arthroplasty of kneeCharan P Jacinto Work Phone: Cardiac catheterizationBryan P Brysons Work Phone: Cesarean sectionBryan P Brysons Work Phone: CholecystectomyBryan P Brysons Work Phone: History of placement of stent for coronary artery disease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Bryan P Kuns Work Phone: Comment on above:LAD February 2022;History of placement of stent for coronary artery disease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Rosalinda Torres MD Work Phone: History of placement of stent for coronary artery disease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Rosalinda Torres MD Work Phone: Operative procedure on ankleBryan P Kuns Work Phone: Operative procedure on footBryan P Kuns Work Phone: ParathyroidectomyBryan P Neurodyns Work Phone: Procedure on backBryan P Kuns Work Phone: Procedure on neckBryan P Neurodyns Work Phone: Total colonoscopyBryan P Acrolinx Work Phone: Comment on above:30Nov2018; Plan of Treatment DateCare ActivityDetailAuthorStart: 01-05-5035Xjxzqzaxf for malignant neoplasm of [facility]: 71-69-4830Dharrlvgtxfv Vaccine: Pediatrics (0 to 5 Years) and At-Risk Patients (6 to 64 Years) (3 - PPSV23 or PCV20)Pneumococcal Vaccine: Pediatrics (0 to 5 Years) and At-Risk Patients (6 to 64 Years) (3 - PPSV23 orPCV20)[facility]: 05-09-6650Gdudhmyfogbi Vaccine: Pediatrics (0 to 5 Years) and At-Risk Patients (6 to 64 Years) (3 of 3 - PPSV23 or PCV20)Pneumococcal Vaccine: Pediatrics (0 to 5 Years) and At-Risk Patients (6 to 64 Years) (3 of 3 - PPSV23 or PCV20) [facility]: 10-24-2025 End: 68-10-4531Wwttnqc encounter gkdrdqidq51/25/2025 10:30 AM EST [facility] [address] [place] [address] Shaina Munroe, [address] [place] [address] [facility] 230 Start: 80-14-7285Mozaylcu screeningDiabetes: Retinopathy ScreeningNOWA HealthcareStart: 08-15-2025 End: 19-71-2859Vyzknle encounter procedureNOMS [facility] 230Start: 07-31-2025 Influenza vaccinationNOWA HealthcareStart: 07-27-2025 End: 33-90-9032Ljklvte encounter ppvqerulu52/28/2025 8:15 AM EDT Office Visit [facility] [place] [facility] [address] [place] [address] Shaina Munroe, DO [address] [place] [address] ArrivedNOMS [facility] 230Comment on above:ArrivedStart: 03-28-2025 End: 35-17-3647Hgjenss encounter uotxnhape65/29/2025 8:50 AM EDT Office Visit [facility] [address] [place] [address] Rosalinda Torres MD [address] [place] [address] [facility]: 02-14[facility]2025 End: 69-62-1533Joiwpgn encounter snetcqsiu98/18/2025 9:30 AM EDT Office Visit [facility] [address] [place] [phone] Shaina Munroe, DO [address] [place] [address] [facility] 230Start: 98-54-5259JE Shoulder - right WO [facility]woodstart: 66-62-9342QNV of right shoulder MR shoulder RT [facility]ertart: 01-17-2025 Hemoglobin A1c measurementDiabetes: Hemoglobin R4KRYBZSt. Louis Behavioral Medicine InstituteStart: 20-55-9865VjnqdrhrtNewark Hospitaltart: 56-62-2625KowngldsuNewark Hospitaltart: 08-25-2024 End: 67-01-4543Fcmukmm encounter /26/2024 8:40 AM EDT Office Visit [facility] [address] [place] [address] Rosalinda Torres MD [address] [place] [address] [facility]: 63-78-2311HYAMG-19 Vaccine ( season)COVID-19 Vaccine ( season)[place] Start: 15-49-2427Bawjloyff vaccinationInfluenza Vaccine (#1)[facility] Start: 13-67-9854JbwhmjqitNewark Hospitaltart: 12-81-3850Hanbbfbl identified in Urine by CultureNewark Hospitaltart: 02-29-2024 Urine cultureUrine [facility] Hospitalt[facility]: 00-41-3810HSH, Provider: Rosalinda Torres, Status: Pen, Time: 9:10 AMFUV, Provider: Rosalinda Torres, Status: Pen, Time: 9:10 [facility] 250 DO Work Phone: Start: 50-11-2082TvoefefmbSelect Medical [facility] Start: 18-99-2469GdrxbcwuzNewark Hospitaltart: 77-28-2872MQXSS-19 Vaccine ( season)COVID-19 Vaccine ( season)[place]Start: 00-66-7779Zqteflfyj vaccinationInfluenza Vaccine (#1)[place]Start: 52-54-6713Dljcsiez identified in Urine by [facility] Hospitaltart: 98-54-4089BDI, Provider: Rosalinda Torres, Status: Pen, Time: 9:00 AMFUV, Provider: Rosalinda Torres, Status: Pen, Time: 9:00 [facility] 250 DO Work Phone: Start: 21-73-7455YPnO/Tdap/Td Vaccines (2 - Td or Tdap)DTaP/Tdap/Td Vaccines (2 - Td or Tdap)[place] Start: 51-40-4371JPJOVVITF, Provider: Rosalinda Torres, Status: Pen, Time: 1:00 PM SURGNONUH, Provider: Rosalinda Torres, Status: Pen, Time: 1:00 PM-[facility] 250 DO Work Phone: Start: 97-66-9903RWG, Provider: Rosalinda Torres, Status: Pen, Time: 1:50 PMFUV, Provider: Rosalinda Torres, Status: Pen, Time: 1:50 PM-[facility] 250 DO Work Phone: Start: 46-68-5998NQM patients and/or patients aged 60+ years (1 - 1-dose 60+ series)RSV patients and/or patients aged 60+ years (1 - 1-dose 60+ series)[facility]: 09-60-5846Bykjhzdcx for malignant neoplasm of breastMammogramUnAvita Health System: 71-77-0469Krdyfywlo for malignant neoplasm of cervixNOMS HealthcareStart: 00-51-9242FKjP/Tdap/Td Vaccines (1 - Tdap) DTaP/Tdap/Td Vaccines (1 - Tdap)[facility]: 08-32-7745Siphafzjn for malignant neoplasm of cervixUnAvita Health System: 62-46-2368Shubw screening for proteinDiabetes: Urine Protein ScreeningMercer County Community Hospital: 65-42-1812Karpvxpun C screening Hepatitis C ScreeningUnAvita Health System: 08-35-2208Imcslojn foot examinationDiabetes: Foot ExamUnAvita Health System: 30-11-3682Rjoiwgfr screeningDiabetes: Retinopathy ScreeningMercer County Community Hospital: 87-95-5209VJJ Vaccines (1 of 1 - Standard series)MMR Vaccines (1 of 1 - Standard series)[facility]: 1960 Hemoglobin A1c measurementDiabetes: Hemoglobin W3JHthgfpimudMercer County Community Hospital: 31-76-8052GFQ screeningHIV ScreeningUnAvita Health System: 51-57-6891Qdzlg panelLipid PanelUnAvita Health System: 1960Medicare Annual Wellness (AWV)Medicare Annual Wellness (AWV)[facility]OM[facility] HealthcareStart: 1960Medicare Annual Wellness VisitMedicare Annual Wellness Visit (AWV)[place]: 1960 Screening for malignant neoplasm of colonUnAvita Health System: 64-55-5076Yblmjd Adult PhysicalYearly Adult PhysicalUnTrumbull Memorial HospitalComprehensive metabolic 2000 panel - Serum or PlasmaSelect Medical [facility] Rehabilitation Hospital - DublinMR Lumbar spine WO and W contrast [facility] FoundationMR Shoulder - right WO contrastSelect Medical [facility]health Rehabilitation Hospital - DublinPatient EducationOhiohealth [facility]tr Work Phone: Patient referralOhiohealth Mansfield Hospital Ctr Work Phone: Renal function 1999 panel - Serum or PlasmaSelect Medical [facility]health Rehabilitation Hospital - DublinRheumatoid factor [Units/volume] in Serum or Plasma [facility] Immunizations Immunization DateImmunizationNotesCare MtovfogbGcqvtxrm39-40-0222pipagx vaccine recombinantDawn Fitt Other [facility]11-29-2022zoster vaccine recombinantAaron LePoire Other [facility]11-17-2022influenza virus vaccine, unspecified formulationDO Charan Casey Work Phone: [facility]11-17-2022influenza, seasonal, injectableRosalinda Torres MD Work Phone: [place] Work Phone: [phone] SARS-CoV-2 VaccinationRosalinda Torres MD Work Phone: [place] Work Phone: [phone]-64 Moderna (BIvalent)Renée Fitt Other [facility]11-17-2022influenza, high dose seasonal, preservative-freeDawn Fitt Other [employer] Other [id number], injectable, quadrivalent, preservative freeDawn Fitt Other noSt. Clair [facility] [employer] Other [id number] COVID-19 Vaccine 100 MCG/0.5ML Intramuscular SuspensionBryan P Neurodyns Work Phone: [facility]10-27-2021Moderna SARS-CoV-2 Booster VaccinationAllison Petznick DO Work Phone: noSt. Louis Behavioral Medicine InstituteExwfzgxtnr72-23-8297ldevlrhr influenza, intradermal, preservative freeBryan P Kuns Work Phone: [phone]-DejdsJane [place] [address] DO Work Phone: [phone]-41 Vaccine Moderna - Documentation Purposes OnlyThomas Felter Other [facility]12-30-2020Moderna COVID-19 Vaccine 100 MCG/0.5ML Intramuscular SuspensionBryan P Neurodyns Work Phone: [facility]10-01-2019influenza virus vaccine, unspecified formulationBryan P Kuns Work Phone: mp-[facility] 250 DO Work Phone: [phone]r, injectable, quadrivalent, preservative freeAllison Petznick DO Work Phone: noSt. Louis Behavioral Medicine InstituteTuvujoubbd18-69-7682qyloatiix, seasonal, injectableThomas Felter Other [facility]10-01-2018influenza, seasonal, injectableThomas Felter Other [facility]10-01-2018influenza, seasonal, injectable, preservative freeAllison Petznick DO Work Phone: noSt. Louis Behavioral Medicine InstituteFdgfyeivfo05-57-9148tpnubaqch virus vaccine, unspecified formulationDO Charan BrysonThwapr Work Phone: [facility]01-03-2017influenza, seasonal, injectable, preservative freeCharan Casey Work Phone: [phone]-EmyyiLindsay Ville [address] DO Work Phone: [phone]dungufzw conjugate vaccine, 13 valent Blas Ortiz Other [facility]01-03-2017influenza, high dose seasonal, preservative-freeBlas Ortiz Other [facility] [employer] Other [id number], injectable, quadrivalent, preservative freeDawn Fitt Other [employer] Other [id number] polysaccharide vaccine, 23 valentYeisonan P Jacinto Work Phone: [phone]-VftaoLindsay Ville [address] DO Work Phone: [phone]vvhziw polysaccharide vaccine, 23 valentCharan Casey Work Phone: [place]10-10-2012influenza virus vaccine, unspecified formulationDO Charan Casey Work Phone: [facility]10-10-2012tetanus toxoid, reduced diphtheria toxoid, and acellular pertussis vaccine, adsorbed Blas Ortiz Other [facility]10-10-2012influenza virus vaccine, split virus (incl. purified surface antigen)Blas Ortiz Other [facility] [employer] Other influenza virus vaccine, unspecified formulationCharan Casey Work Phone: [phone]-LinoiLindsay [place] [address] DO Work Phone: Comment on above:2010NEGATED: Highlighted row has not occurred!40-91-4553waeqsquil, injectable,quadrivalent, preservative free, pediatricThomas Felter Other [employer] Other Payers DatePayer CategoryPayerPolicy [id number] 2024MedicareUNITED HEALTHCARE MEDICARE UNITED [employer] MEDICARE [id number] 2024-Present [address] [place], [place] [id number] 2024Medicare (Managed Care)[id number] [id number] 2.16.840.1.361089.3.57[id number] 2.16.840.1.525978.3.57[id number] 2.16.840.1.054064.3.57[id number] 2.16.840.1.578770.3.57[id number] 2.16.840.1.625078.3.57[id number] 2.16.840.1.852458.3.579.[id number] 2.16.840.1.063565.3.57[id number] 2.16.840.1.134731.3.57[id number] 2.16.840.1.327582.3.579.2.16923-70-2645Nxucnjv6488575 2.16.840.1.166263.3.579.2.55329-68-8484Koddbum4043523 2.16.840.1.181629.3.579.2.17874-62-4166Yulwdbe2870414 2.16.840.1.473728.3.579.2.24294-04-3037Tnudnuz029009053 2.16.840.1.867227.3.57[id number] 2.16.840.1.979461.3.57[id number] 2.16.840.1.712323.3.579.2.9[id number] 2.16.840.1.220906.3.57[id number] 2.16.840.1.727434.3.579.2.467406-38-2594Uftftsj6004142 2..840.1.013682.3.579.2.827867-21-2482Qajwnhs0996553 2.16840.1.317947.3.579.[id number] 2.840.1.387273.19 [id number] Pay [id number] Social History DateTypeDetailFacilityStart: 12-04-2023 End: 03-63-8242Dpoteoyuwm caffeine consumptionOccasional caffeine consumption [facility] HealthcareComment on above:Coffee;Start: 12-04-2023 End: 32-33-5753See Assigned At [facility] HealthcareStart: 07-27-2022 End: 95-36-3608Jmgqgcn smoking status NHISNever smoked tobacco (finding) [facility]tart: 45-44-9050Htr Assigned At [facility]-SalemFeOhioHealth Grant Medical Centertart: 05-19-2023 End: 06-43-9417Scrvcbj use and exposureSmokeless tobacco non-userUnTrumbull Memorial Hospital Work Phone: Start: 12-04-2023 End: 69-41-0394Uqupfyq intakeLifetime non-drinker (finding)[place] Work Phone: Start: 73-27-4404Dcg Assigned At BirthNot on file [place] Work Phone: Start: 02-12-2024 End: 52-97-7536Ibctzube to SARS-CoV-2 (event)Not sureCentervilleStart: 10-19-2024 End: 64-22-9291CrbUuweyw (finding)[facility]Do you belong to any clubs or organizations such as sabianism groups, unions, fraternal or athletic groups, or school groups?YesNOMS HealthcareAre you now , , , , never or living with a partner?MarriedNOMS HealthcareHow often to you have a drink containing alcohol?NeverNOMS Healthcare How many standard drinks containing alcohol do you have on a typical day?Patient does not drinkNOMS HealthcareDo you feel stress - tense, restless, nervous, or anxious, or unable to sleep at night because yourmind is troubled all the time - these days [OSQ]To some extentNOMS HealthcareThe food that (I/we) bought just didn't last, and (I/we) didn't have money to get more.Never trueNOMS Healthcare In the past 12 months, was there a time when you were not able to pay the mortgage or rent on time?NoNOMS HealthcareStart: 60-71-2648Arrlchf Comment caffeine: 1-2 cups per day coffeeNOMS HealthcareStart: 38-62-6749Djyaqp identity Identifies as female gender (finding)[facility] Medical Equipment Procedure CodeEquipment CodeEquipment Original TextEquipment IdentifierDates Fusion, spine, lumbar, XLIFLATERAL STD 1 LEVEL CONSTRUCTFDAStart: 07-25-2020 Fusion, spine, lumbar, XLIFOrthopaedic bone screw, non-bioabsorbable, non-sterile+[id number] FDAStart: 09-68-8756Sflbjs, spine, lumbar, XLIFBone- screw internal spinal fixation system, non-sterile+[id number] FDAStart: 14-77-4885Qqrhes, spine, lumbar, XLIFSTRATOFUSE DBM 10CCFDAStart: 07-25-2020 Fusion, spine, lumbar, XLIFTIMBERLINE INTERBODYFDAStart: 02-67-5974Mvzund, spine, lumbar, XLIFSpinal fusion graft kit [id number] FDAStart: 13-83-9066Bynaih, spine, lumbar, XLIFBone-screw internal spinal fixation system, non-sterile+[id number] FDAStart: 15-94-3128Fisgnr, spine, lumbar, XLIFLATERAL STD 1 LEVEL CONSTRUCTFDA Start: 73-74-8726Qrtmwu, spine, lumbar, XLIFSTRATOFUSE DBM 10CCFDAStart: 46-52-6454Poyqtz, spine, lumbar, XLIFTIMBERLINE INTERBODYFDAStart: 07-25-2020 Fusion, spine, lumbar, XLIFLATERAL STD 1 LEVEL CONSTRUCTFDAStart: 07-25-2020 Fusion, spine, lumbar, XLIFSTRATOFUSE DBM 10CCFDAStart: 80-54-4020Hxidba, spine, lumbar, XLIFTIMBERLINE INTERBODYFDAStart: 57-63-2963Riqvpk, spine, lumbar, XLIF LATERAL STD 1 LEVEL CONSTRUCTFDAStart: 78-43-5872Tyatfk, spine, lumbar, XLIF STRATOFUSE DBM 10CCFDAStart: 86-90-5692Jemosy, spine, lumbar, XLIFTIMBERLINE INTERBODYFDAStart: 53-67-9479Yrbjay, spine, lumbar, XLIFLATERAL STD 1 LEVEL CONSTRUCTFDAStart: 86-59-7598Zjcayh, spine, lumbar, XLIFSTRATOFUSE DBM 10CCFDA Start: 07-36-7389Vyolwt, spine, lumbar, XLIFTIMBERLINE INTERBODYFDAStart: 46-94-1353Pkouaf, spine, lumbar, XLIFLATERAL STD 1 LEVEL CONSTRUCTFDAStart: 77-93-6020Upbufz, spine, lumbar, XLIFSTRATOFUSE DBM 10CCFDAStart: 07-25-2020 Fusion, spine, lumbar, XLIFTIMBERLINE INTERBODYFDAStart: 86-26-6546Bksuxq, spine, lumbar, XLIFLATERAL STD 1 LEVEL CONSTRUCTFDAStart: 26-82-5054Llnaik, spine, lumbar, XLIFSTRATOFUSE DBM 10CCFDAStart: 40-99-8449Jbvcxn, spine, lumbar, XLIFTIMBERLINE INTERBODYFDAStart: 77-53-0362Mhjlnp, spine, lumbar, XLIFLATERAL STD 1 LEVEL CONSTRUCTFDAStart: 38-58-7569Twfzrb, spine, lumbar, XLIFSTRATOFUSE DBM 10CCFDAStart: 59-85-8423Ahqesw, spine, lumbar, XLIFTIMBERLINE INTERBODYFDA Start: 53-69-6250Gvmopy, spine, lumbar, XLIFLATERAL STD 1 LEVEL CONSTRUCTFDA Start: 73-96-5645Tcbvvu, spine, lumbar, XLIFSTRATOFUSE DBM 10CCFDAStart: 88-11-8582Menzzo, spine, lumbar, XLIFTIMBERLINE INTERBODYFDAStart: 07-25-2020 Fusion, spine, lumbar, XLIFLATERAL STD 1 LEVEL CONSTRUCTFDAStart: 07-25-2020 Fusion, spine, lumbar, XLIFSTRATOFUSE DBM 10CCFDAStart: 68-49-0057Tcbwem, spine, lumbar, XLIFTIMBERLINE INTERBODYFDAStart: 87-83-3904Uwuzsg, spine, lumbar, XLIF LATERAL STD 1 LEVEL CONSTRUCTFDAStart: 06-77-9706Nptzos, spine, lumbar, XLIF STRATOFUSE DBM 10CCFDAStart: 10-27-5148Stokcs, spine, lumbar, XLIFTIMBERLINE INTERBODYFDAStart: 33-10-5632Mazuja, spine, lumbar, XLIFLATERAL STD 1 LEVEL CONSTRUCTFDAStart: 97-61-5135Lywvir, spine, lumbar, XLIFSTRATOFUSE DBM 10CCFDA Start: 48-53-8756Gvlpkd, spine, lumbar, XLIFTIMBERLINE INTERBODYFDAStart: 77-44-4582Wpaaqz, spine, lumbar, XLIFLATERAL STD 1 LEVEL CONSTRUCTFDAStart: 80-82-9572Itynwm, spine, lumbar, XLIFSTRATOFUSE DBM 10CCFDAStart: 07-25-2020 Fusion, spine, lumbar, XLIFTIMBERLINE INTERBODYFDAStart: 10-18-3193Dkmazz, spine, lumbar, XLIFLATERAL STD 1 LEVEL CONSTRUCTFDAStart: 32-88-7360Aprcua, spine, lumbar, XLIFSTRATOFUSE DBM 10CCFDAStart: 76-26-4537Ttxeoz, spine, lumbar, XLIFTIMBERLINE INTERBODYFDAStart: 02-39-2007Volatx, spine, lumbar, XLIFLATERAL STD 1 LEVEL CONSTRUCTFDAStart: 84-69-4562Jasoce, spine, lumbar, XLIFSTRATOFUSE DBM 10CCFDAStart: 23-28-5440Rejlhz, spine, lumbar, XLIFTIMBERLINE INTERBODYFDA Start: 05-96-1545Admffg, spine, lumbar, XLIFLATERAL STD 1 LEVEL CONSTRUCTFDA Start: 24-46-5504Whjemq, spine, lumbar, XLIFSTRATOFUSE DBM 10CCFDAStart: 69-56-0189Irrtxf, spine, lumbar, XLIFTIMBERLINE INTERBODYFDAStart: 07-25-2020 Fusion, spine, lumbar, XLIFLATERAL STD 1 LEVEL CONSTRUCTFDAStart: 07-25-2020 Fusion, spine, lumbar, XLIFSTRATOFUSE DBM 10CCFDAStart: 67-81-9626Wylhga, spine, lumbar, XLIFTIMBERLINE INTERBODYFDAStart: 21-70-4758Riwoet, spine, lumbar, XLIF LATERAL STD 1 LEVEL CONSTRUCTFDAStart: 55-43-5278Plplyq, spine, lumbar, XLIF STRATOFUSE DBM 10CCFDAStart: 69-61-8011Pqvysc, spine, lumbar, XLIFTIMBERLINE INTERBODYFDAStart: 95-34-0373Swvsdg, spine, lumbar, XLIFLATERAL STD 1 LEVEL CONSTRUCTFDAStart: 18-47-7634Mwczhw, spine, lumbar, XLIFSTRATOFUSE DBM 10CCFDA Start: 67-19-8157Wkiyyx, spine, lumbar, XLIFTIMBERLINE INTERBODYFDAStart: 84-15-0073Goydcl, spine, lumbar, XLIFLATERAL STD 1 LEVEL CONSTRUCTFDAStart: 60-53-3324Ojwefg, spine, lumbar, XLIFSTRATOFUSE DBM 10CCFDAStart: 07-25-2020 Fusion, spine, lumbar, XLIFTIMBERLINE INTERBODYFDAStart: 56-90-8996Opxxrk, spine, lumbar, XLIFLATERAL STD 1 LEVEL CONSTRUCTFDAStart: 56-11-7104Fujlml, spine, lumbar, XLIFSTRATOFUSE DBM 10CCFDAStart: 34-49-4727Sejjga, spine, lumbar, XLIFTIMBERLINE INTERBODYFDAStart: 85-99-9143Rxpxri, spine, lumbar, XLIFLATERAL STD 1 LEVEL CONSTRUCTFDAStart: 40-84-7316Tzswyr, spine, lumbar, XLIFSTRATOFUSE DBM 10CCFDAStart: 99-65-8746Oylxrg, spine, lumbar, XLIFTIMBERLINE INTERBODYFDA Start: 06-28-8629Mrxdmr, spine, lumbar, XLIFLATERAL STD 1 LEVEL CONSTRUCTFDA Start: 31-48-2249Oomoir, spine, lumbar, XLIFSTRATOFUSE DBM 10CCFDAStart: 97-94-6496Rrtinb, spine, lumbar, XLIFTIMBERLINE INTERBODYFDAStart: 07-25-2020 Fusion, spine, lumbar, XLIFLATERAL STD 1 LEVEL CONSTRUCTFDAStart: 07-25-2020 Fusion, spine, lumbar, XLIFSTRATOFUSE DBM 10CCFDAStart: 83-43-7713Veitap, spine, lumbar, XLIFTIMBERLINE INTERBODYFDAStart: 04-97-6377Aqjodt, spine, lumbar, XLIF LATERAL STD 1 LEVEL CONSTRUCTFDAStart: 64-93-5122Phvyij, spine, lumbar, XLIF STRATOFUSE DBM 10CCFDAStart: 97-39-2439Smxiog, spine, lumbar, XLIFTIMBERLINE INTERBODYFDAStart: 25-98-0892Rdkcpk, spine, lumbar, XLIFLATERAL STD 1 LEVEL CONSTRUCTFDAStart: 64-71-9818Vqlyow, spine, lumbar, XLIFSTRATOFUSE DBM 10CCFDA Start: 14-11-5529Dgnvef, spine, lumbar, XLIFTIMBERLINE INTERBODYFDAStart: 15-00-3645Vzumts, spine, lumbar, XLIFLATERAL STD 1 LEVEL CONSTRUCTFDAStart: 50-89-5028Kwgxqh, spine, lumbar, XLIFSTRATOFUSE DBM 10CCFDAStart: 07-25-2020 Fusion, spine, lumbar, XLIFTIMBERLINE INTERBODYFDAStart: 83-87-4768Mwgkrh, spine, lumbar, XLIFLATERAL STD 1 LEVEL CONSTRUCTFDAStart: 37-72-5031Iujgvj, spine, lumbar, XLIFSTRATOFUSE DBM 10CCFDAStart: 81-72-6081Nsdnhp, spine, lumbar, XLIFTIMBERLINE INTERBODYFDAStart: 19-79-8072Lnhimt, spine, lumbar, XLIFLATERAL STD 1 LEVEL CONSTRUCTFDAStart: 94-53-8062Kpqyax, spine, lumbar, XLIFSTRATOFUSE DBM 10CCFDAStart: 19-06-5951Llmjlo, spine, lumbar, XLIFTIMBERLINE INTERBODYFDA Start: 53-63-4819Ckajos, spine, lumbar, XLIFLATERAL STD 1 LEVEL CONSTRUCTFDA Start: 63-34-7473Eacnla, spine, lumbar, XLIFSTRATOFUSE DBM 10CCFDAStart: 64-77-2864Ekuona, spine, lumbar, XLIFTIMBERLINE INTERBODYFDAStart: 07-25-2020 Fusion, spine, lumbar, XLIFLATERAL STD 1 LEVEL CONSTRUCTFDAStart: 07-25-2020 Fusion, spine, lumbar, XLIFSTRATOFUSE DBM 10CCFDAStart: 16-20-9301Bjzdzo, spine, lumbar, XLIFTIMBERLINE INTERBODYFDAStart: 43-03-5496Coojdb, spine, lumbar, XLIF LATERAL STD 1 LEVEL CONSTRUCTFDAStart: 95-77-9148Zwlusp, spine, lumbar, XLIF STRATOFUSE DBM 10CCFDAStart: 47-59-4552Jnbyvg, spine, lumbar, XLIFTIMBERLINE INTERBODYFDAStart: 34-20-7104Qpavxs, spine, lumbar, XLIFLATERAL STD 1 LEVEL CONSTRUCTFDAStart: 05-57-3111Fcdtzo, spine, lumbar, XLIFSTRATOFUSE DBM 10CCFDA Start: 00-80-2213Cgztmz, spine, lumbar, XLIFTIMBERLINE INTERBODYFDAStart: 22-06-9468Wmnwju, spine, lumbar, XLIFLATERAL STD 1 LEVEL CONSTRUCTFDAStart: 08-21-2571Zbkosm, spine, lumbar, XLIFSTRATOFUSE DBM 10CCFDAStart: 07-25-2020 Fusion, spine, lumbar, XLIFTIMBERLINE INTERBODYFDAStart: 28-36-1897Dtaszx, spine, lumbar, XLIFLATERAL STD 1 LEVEL CONSTRUCTFDAStart: 37-82-7947Wsuqxt, spine, lumbar, XLIFSTRATOFUSE DBM 10CCFDAStart: 44-93-1795Wiikms, spine, lumbar, XLIFTIMBERLINE INTERBODYFDAStart: 88-02-8045Hukqob, spine, lumbar, XLIFLATERAL STD 1 LEVEL CONSTRUCTFDAStart: 39-65-7215Lqqktl, spine, lumbar, XLIFSTRATOFUSE DBM 10CCFDAStart: 93-11-9223Nfkemn, spine, lumbar, XLIFTIMBERLINE INTERBODYFDA Start: 06-28-1411Yjdhhs, spine, lumbar, XLIFLATERAL STD 1 LEVEL CONSTRUCTFDA Start: 36-87-5855Boujsh, spine, lumbar, XLIFSTRATOFUSE DBM 10CCFDAStart: 86-48-8254Mprndo, spine, lumbar, XLIFTIMBERLINE INTERBODYFDAStart: 07-25-2020 Fusion, spine, lumbar, XLIFLATERAL STD 1 LEVEL CONSTRUCTFDAStart: 07-25-2020 Fusion, spine, lumbar, XLIFSTRATOFUSE DBM 10CCFDAStart: 69-51-8323Czvyro, spine, lumbar, XLIFTIMBERLINE INTERBODYFDAStart: 14-99-8307Dcdmus, spine, lumbar, XLIF LATERAL STD 1 LEVEL CONSTRUCTFDAStart: 91-95-9877Cfuumd, spine, lumbar, XLIF STRATOFUSE DBM 10CCFDAStart: 85-99-8248Lfsemt, spine, lumbar, XLIFTIMBERLINE INTERBODYFDAStart: 03-48-1995Opvthx, spine, lumbar, XLIFLATERAL STD 1 LEVEL CONSTRUCTFDAStart: 50-06-1848Cwungc, spine, lumbar, XLIFSTRATOFUSE DBM 10CCFDA Start: 05-36-5714Dsavfz, spine, lumbar, XLIFTIMBERLINE INTERBODYFDAStart: 10-09-6279Qihtyz, spine, lumbar, XLIFLATERAL STD 1 LEVEL CONSTRUCTFDAStart: 72-50-6207Nigrei, spine, lumbar, XLIFSTRATOFUSE DBM 10CCFDAStart: 07-25-2020 Fusion, spine, lumbar, XLIFTIMBERLINE INTERBODYFDAStart: 50-13-9737Imhnqb, spine, lumbar, XLIFLATERAL STD 1 LEVEL CONSTRUCTFDAStart: 36-44-4889Cwxnip, spine, lumbar, XLIFSTRATOFUSE DBM 10CCFDAStart: 95-67-6496Eiigqz, spine, lumbar, XLIFTIMBERLINE INTERBODYFDAStart: 05-27-1701Risozu, spine, lumbar, XLIFLATERAL STD 1 LEVEL CONSTRUCTFDAStart: 43-90-0238Qrdkee, spine, lumbar, XLIFSTRATOFUSE DBM 10CCFDAStart: 64-27-5548Bgqpgz, spine, lumbar, XLIFTIMBERLINE INTERBODYFDA Start: 41-32-5173Kygogz, spine, lumbar, XLIFLATERAL STD 1 LEVEL CONSTRUCTFDA Start: 49-89-7533Mysgkt, spine, lumbar, XLIFSTRATOFUSE DBM 10CCFDAStart: 40-03-8187Dyjaqi, spine, lumbar, XLIFTIMBERLINE INTERBODYFDAStart: 07-25-2020 Fusion, spine, lumbar, XLIFLATERAL STD 1 LEVEL CONSTRUCTFDAStart: 07-25-2020 Fusion, spine, lumbar, XLIFSTRATOFUSE DBM 10CCFDAStart: 26-07-7377Ompedw, spine, lumbar, XLIFTIMBERLINE INTERBODYFDAStart: 77-02-9487Vcyzur, spine, lumbar, XLIF LATERAL STD 1 LEVEL CONSTRUCTFDAStart: 01-17-4073Uxuevn, spine, lumbar, XLIF STRATOFUSE DBM 10CCFDAStart: 53-76-1535Lvrhxw, spine, lumbar, XLIFTIMBERLINE INTERBODYFDAStart: 11-38-7264Hytthp, spine, lumbar, XLIFLATERAL STD 1 LEVEL CONSTRUCTFDAStart: 88-42-9528Hzvblk, spine, lumbar, XLIFSTRATOFUSE DBM 10CCFDA Start: 77-51-9695Rjcwkt, spine, lumbar, XLIFTIMBERLINE INTERBODYFDAStart: 57-59-411377119792, 05898993Xbetg: 08-11-2013 End: 97-02-2885Fnaw-eluting coronary artery stent, umw-mthlypdxortbi-txvartw-coated()[id number] FDAStart: 78-24-3107Amjnkqr artery closure plug/patch, synthetic polymer()[id number] FDAStart: 81-11-2613Zvq Needle, Diabetic (Ulticare Pen Needle) 31 gauge x 3/16 needleStart: 95-29-6924Qky Needle, Diabetic (Ulticare Pen Needle) 31 gauge x 3/16 needleStart: 05-13-2024 End: 51-01-5810Nbl Needle, Diabetic (Ulticare Pen Needle) 31 gauge x 3/16 needleStart: 33-81-5995Ndo Needle, Diabetic (Ulticare Pen Needle) 31 gauge x 3/16 needleStart: 05-13-2024 End: 77-15-5951Gkm Needle, Diabetic (Ulticare Pen Needle) 31 gauge x 3/16 needleStart: 07-10-0066Ymx Needle, Diabetic (Ulticare Pen Needle) 31 gauge x 3/16 needleStart: 05-13-2024 End: 60-80-8965Rwd Needle, Diabetic (Ulticare Pen Needle) 31 gauge x 3/16 needleStart: 00-16-8932Zbn Needle, Diabetic (Ulticare Pen Needle) 31 gauge x 3/16 needleStart: 05-13-2024 End: 52-95-6038Xtn Needle, Diabetic (Ulticare Pen Needle) 31 gauge x 3/16 needleStart: 86-06-5363Ghe Needle, Diabetic (Ulticare Pen Needle) 31 gauge x 3/16 needleStart: 05-13-2024 End: 80-44-0938Ghx Needle, Diabetic (Ulticare Pen Needle) 31 gauge x 3/16 needleStart: 92-42-2688Rzr Needle, Diabetic (Ulticare Pen Needle) 31 gauge x 3/16 needleStart: 05-13-2024 End: 56-01-1154Oon Needle, Diabetic (Ulticare Pen Needle) 31 gauge x 3/16 needleStart: 20-98-4612Rwe Needle, Diabetic (Ulticare Pen Needle) 31 gauge x 3/16 needleStart: 05-13-2024 End: 57-77-5675Kxc Needle, Diabetic (Ulticare Pen Needle) 31 gauge x 3/16 needleStart: 05-13-2024 End: 76-24-7940Vro Needle, Diabetic (Ulticare Pen Needle) 31 gauge x 3/16 needleStart: 78-85-8934Ynx Needle, Diabetic 31 gauge x 5/16 needleStart: 37-89-4181Ywb Needle, Diabetic (Ulticare Pen Needle) 31 gauge x 3/16 needle Start: 05-13-2024 End: 62-90-1091Gft Needle, Diabetic (Ulticare Pen Needle) 31 gauge x 3/16 needleStart: 05-13-2024 End: 61-35-3860Tet Needle, Diabetic 31 gauge x 5/16 needleStart: 09-12-2024 End: 63-92-0860Ffd Needle, Diabetic (Ulticare Pen Needle) 31 gauge x 3/16 needleStart: 27-86-4337Eqx Needle, Diabetic 31 gauge x 5/16 needleStart: 04-83-9295Gsk Needle, Diabetic (Ulticare Pen Needle) 31 gauge x 3/16 needle Start: 05-13-2024 End: 32-53-0760Bgv Needle, Diabetic (Ulticare Pen Needle) 31 gauge x 3/16 needleStart: 05-13-2024 End: 47-44-2994Ogy Needle, Diabetic 31 gauge x 5/16 needleStart: 09-12-2024 End: 49-50-4459Mgf Needle, Diabetic (Ulticare Pen Needle) 31 gauge x 3/16 needleStart: 53-88-0716Hyn Needle, Diabetic 31 gauge x 5/16 needleStart: 22-03-3742Gdn Needle, Diabetic (Ulticare Pen Needle) 31 gauge x 3/16 needle Start: 05-13-2024 End: 88-81-3342Sxz Needle, Diabetic (Ulticare Pen Needle) 31 gauge x 3/16 needleStart: 05-13-2024 End: 36-51-7309Imu Needle, Diabetic 31 gauge x 5/16 needleStart: 09-12-2024 End: 58-87-3807Kov Needle, Diabetic (Ulticare Pen Needle) 31 gauge x 3/16 needleStart: 57-51-1406Fwp Needle, Diabetic 31 gauge x 5/16 needleStart: 65-57-0082Cfy Needle, Diabetic (Ulticare Pen Needle) 31 gauge x 3/16 needle Start: 05-13-2024 End: 16-80-2355Tgl Needle, Diabetic (Ulticare Pen Needle) 31 gauge x 3/16 needleStart: 05-13-2024 End: 04-65-2781Kyv Needle, Diabetic 31 gauge x 5/16 needleStart: 09-12-2024 End: 86-46-7440Dtj Needle, Diabetic (Ulticare Pen Needle) 31 gauge x 3/16 needleStart: 37-72-5213Lno Needle, Diabetic 31 gauge x 5/16 needleStart: 96-37-8982Fgl Needle, Diabetic (Ulticare Pen Needle) 31 gauge x 3/16 needle Start: 05-13-2024 End: 29-25-5784Mgj Needle, Diabetic (Ulticare Pen Needle) 31 gauge x 3/16 needleStart: 05-13-2024 End: 94-88-5055Qkp Needle, Diabetic 31 gauge x 5/16 needleStart: 09-12-2024 End: 24-10-8213Nzb Needle, Diabetic (Ulticare Pen Needle) 31 gauge x 3/16 needleStart: 63-99-7242Cms Needle, Diabetic 31 gauge x 5/16 needleStart: 78-58-4300Pyg Needle, Diabetic (Ulticare Pen Needle) 31 gauge x 3/16 needle Start: 05-13-2024 End: 10-86-8754Nxn Needle, Diabetic (Ulticare Pen Needle) 31 gauge x 3/16 needleStart: 05-13-2024 End: 16-32-0728Kwr Needle, Diabetic 31 gauge x 5/16 needleStart: 09-12-2024 End: 06-49-6564Zrm Needle, Diabetic (Ulticare Pen Needle) 31 gauge x 3/16 needleStart: 36-88-3842Cnr Needle, Diabetic 31 gauge x 5/16 needleStart: 42-39-9711Wcb Needle, Diabetic (Ulticare Pen Needle) 31 gauge x 3/16 needle Start: 05-13-2024 End: 48-59-1966Snv Needle, Diabetic (Ulticare Pen Needle) 31 gauge x 3/16 needleStart: 05-13-2024 End: 41-39-5818Blh Needle, Diabetic 31 gauge x 5/16 needleStart: 09-12-2024 End: 28-66-3218Dmu Needle, Diabetic (Ulticare Pen Needle) 31 gauge x 3/16 needleStart: 55-85-5902Gbh Needle, Diabetic 31 gauge x 5/16 needleStart: 88-71-8734Ptm Needle, Diabetic (Ulticare Pen Needle) 31 gauge x 3/16 needle Start: 05-13-2024 End: 16-66-1808Zcj Needle, Diabetic (Ulticare Pen Needle) 31 gauge x 3/16 needleStart: 05-13-2024 End: 17-54-4336Evg Needle, Diabetic 31 gauge x 5/16 needleStart: 09-12-2024 End: 74-04-9802Egw Needle, Diabetic (Ulticare Pen Needle) 31 gauge x 3/16 needleStart: 79-11-9161Iys Needle, Diabetic 31 gauge x 5/16 needleStart: 46-36-6884Eet Needle, Diabetic (Ulticare Pen Needle) 31 gauge x 3/16 needle Start: 05-13-2024 End: 91-40-3477Lzz Needle, Diabetic (Ulticare Pen Needle) 31 gauge x 3/16 needleStart: 05-13-2024 End: 36-92-1708Jds Needle, Diabetic 31 gauge x 5/16 needleStart: 09-12-2024 End: 65-33-5773Pxc Needle, Diabetic (Ulticare Pen Needle) 31 gauge x 3/16 needleStart: 64-30-0528Bfr Needle, Diabetic 31 gauge x 5/16 needleStart: 09-29-7788Lon Needle, Diabetic (Ulticare Pen Needle) 31 gauge x 3/16 needle Start: 05-13-2024 End: 03-27-4023Cew Needle, Diabetic (Ulticare Pen Needle) 31 gauge x 3/16 needleStart: 05-13-2024 End: 62-33-1448Ynb Needle, Diabetic 31 gauge x 5/16 needleStart: 09-12-2024 End: 38-17-6742Olb Needle, Diabetic (Ulticare Pen Needle) 31 gauge x 3/16 needleStart: 93-25-7828Qde Needle, Diabetic 31 gauge x 5/16 needleStart: 54-67-8983Pcy Needle, Diabetic (Ulticare Pen Needle) 31 gauge x 3/16 needle Start: 05-13-2024 End: 13-52-2631Exk Needle, Diabetic (Ulticare Pen Needle) 31 gauge x 3/16 needleStart: 05-13-2024 End: 67-80-8464Xlm Needle, Diabetic 31 gauge x 5/16 needleStart: 09-12-2024 End: 44-20-3588You Needle, Diabetic (Ulticare Pen Needle) 31 gauge x 3/16 needleStart: 43-32-5312Gdn Needle, Diabetic 31 gauge x 5/16 needleStart: 34-75-0082Gxi Needle, Diabetic (Ulticare Pen Needle) 31 gauge x 3/16 needle Start: 05-13-2024 End: 41-47-7650Pby Needle, Diabetic (Ulticare Pen Needle) 31 gauge x 3/16 needleStart: 05-13-2024 End: 92-21-8087Gip Needle, Diabetic 31 gauge x 5/16 needleStart: 09-12-2024 End: 55-64-9478Hcm Needle, Diabetic (Ulticare Pen Needle) 31 gauge x 3/16 needleStart: 96-82-4177Tjv Needle, Diabetic 31 gauge x 5/16 needleStart: 44-88-0877Xso Needle, Diabetic (Ulticare Pen Needle) 31 gauge x 3/16 needle Start: 05-13-2024 End: 36-21-2865Vmm Needle, Diabetic (Ulticare Pen Needle) 31 gauge x 3/16 needleStart: 05-13-2024 End: 45-28-3615Ssr Needle, Diabetic 31 gauge x 5/16 needleStart: 09-12-2024 End: 35-34-0378Oki Needle, Diabetic (Ulticare Pen Needle) 31 gauge x 3/16 needleStart: 12-39-6725Kqq Needle, Diabetic 31 gauge x 5/16 needleStart: 07-18-2118Vxv Needle, Diabetic (Ulticare Pen Needle) 31 gauge x 3/16 needle Start: 05-13-2024 End: 49-35-2743Uwt Needle, Diabetic (Ulticare Pen Needle) 31 gauge x 3/16 needleStart: 05-13-2024 End: 90-61-9524Vmb Needle, Diabetic 31 gauge x 5/16 needleStart: 09-12-2024 End: 17-06-5767Otz Needle, Diabetic (Ulticare Pen Needle) 31 gauge x 3/16 needleStart: 41-97-8627Els Needle, Diabetic 31 gauge x 5/16 needleStart: 69-28-7012Iev Needle, Diabetic (Ulticare Pen Needle) 31 gauge x 3/16 needle Start: 05-13-2024 End: 59-48-3167Dmj Needle, Diabetic (Ulticare Pen Needle) 31 gauge x 3/16 needleStart: 05-13-2024 End: 03-93-2981Zfk Needle, Diabetic 31 gauge x 5/16 needleStart: 09-12-2024 End: 62-31-5285Oio Needle, Diabetic (Ulticare Pen Needle) 31 gauge x 3/16 needleStart: 04-49-6631Pkc Needle, Diabetic 31 gauge x 5/16 needleStart: 07-37-9757Qwf Needle, Diabetic (Ulticare Pen Needle) 31 gauge x 3/16 needle Start: 05-13-2024 End: 05-56-8555Qqw Needle, Diabetic (Ulticare Pen Needle) 31 gauge x 3/16 needleStart: 05-13-2024 End: 36-42-1975Ins Needle, Diabetic 31 gauge x 5/16 needleStart: 09-12-2024 End: 71-42-5193Wyl Needle, Diabetic (Ulticare Pen Needle) 31 gauge x 3/16 needleStart: 77-37-7753Ctk Needle, Diabetic 31 gauge x 5/16 needleStart: 16-22-1998Gpf Needle, Diabetic (Ulticare Pen Needle) 31 gauge x 3/16 needle Start: 05-13-2024 End: 66-85-1896Hje Needle, Diabetic (Ulticare Pen Needle) 31 gauge x 3/16 needleStart: 05-13-2024 End: 01-09-4887Nwx Needle, Diabetic 31 gauge x 5/16 needleStart: 09-12-2024 End: 32-56-0770Zye Needle, Diabetic (Ulticare Pen Needle) 31 gauge x 3/16 needleStart: 56-91-5118Ilk Needle, Diabetic 31 gauge x 5/16 needleStart: 96-82-8653Vqg Needle, Diabetic (Ulticare Pen Needle) 31 gauge x 3/16 needle Start: 05-13-2024 End: 96-93-2620Yom Needle, Diabetic (Ulticare Pen Needle) 31 gauge x 3/16 needleStart: 05-13-2024 End: 80-42-1203Nus Needle, Diabetic 31 gauge x 5/16 needleStart: 09-12-2024 End: 09-12-2024 Goals DatePatient GoalDesired Activity/State Functional Status [id number] Health Questionnaire 2 item (PHQ- 2) [Reported][facility] Clinical Notes 12-31-2014 to 07-27-2025 Note Date & [id number] History of Present illness Narrative* Shaina Munroe, DO - 07/27/2025 9:29 AM EDTAssociated Problem(s): [...] for her having low bg. * Shaina Munroe DO - 07/27/2025 8:15 AM EDT Images [...] diabetes mellitus with Charcot's joint arthropathy ([facility]) Long-term insulin use ([facility]) Spondylolisthesis at L3-L4 level S/P laparoscopic cholecystectomy Other hammer toe(s) (acquired), left foot Chronic foot ulcer ([facility]) Carpal tunnel syndrome of right wrist Class 2 severe obesity with serious comorbidity and body mass index (BMI) of 35.0 to 35.9 in adult ([facility]) Type 2 diabetes mellitus with both eyes affected by mild nonproliferative retinopathy without macular edema, with long-term current use of insulin ([facility]) Social History Tobacco Use [...] daily 50 units) (100 UNIT/ML SOPN) Labs [facility] [place] HEMOGLOBIN A1C/HEMOGLOBIN.TOTAL:MFR:PT:BLD:QN: 8.1 Outpatient [...] they have any problems or questions. Rita Jama Lakeshia control is stable overall. , [...] joint arthropathy (HCC) Long-term insulin use ([facility]) Class 2 severe obesity with serious comorbidity and body mass index (BMI) of 35.0 to 35.9 in adult ([facility]) Type 2 diabetes mellitus with both eyes affected by mild nonproliferative retinopathy without macular edema, with long-term current use of insulin ([facility]) Follow up in about [...] PO) Take by mouth CONTINUOUS BLOOD GLUC SEXER (DEXCOM G7 SEXER) DEVICE USE DIRECTED CONTINUOUS BLOOD GLUC SENSOR [...] with the patient today. documented in this encounterParkland Health [id number] Evaluation note* Diagnosis Onset Date Resolution Status Admit Date Chronic pain acuteJuly 2024 8:03amSacroiliitis, not elsewhere classifiedacuteJuly 2024 8:03amTrochanteric bursitisacuteJuly 2024 8:03am [facility] Work Phone: 1(935) 779-981807-02-2025 Evaluation note* Diagnosis Onset Date Resolution Status Admit Date Chronic pain acuteJuly 2024 8:03amSacroiliitis, not elsewhere classifiedacuteJuly 2024 8:03amTrochanteric bursitisacuteJuly 2024 8:03amChronic painacuteJuly 2024 9:03amSacroiliitis, not elsewhere classifiedacuteJuly 2024 9:03amTrochanteric bursitisacuteJuly 2024 9:03am [facility] Work Phone: 1(750) 897-604407-02-2025 Evaluation note* Diagnosis Onset Date Resolution Status Admit Date Chronic pain acuteJuly 2024 8:03amSacroiliitis, not elsewhere classifiedacuteJuly 2024 8:03amTrochanteric bursitisacuteJuly 2024 8:03amChronic painacuteJuly 2024 9:03amSacroiliitis, not elsewhere classifiedacuteJuly 2024 9:03amTrochanteric bursitisacuteJuly 2024 9:03amDiabetic foot ulcer associated with type 2 diabetes mellitus, with fat layeacuteAugust 2024 7:36amMRSA bacteremiaacuteAugust 2024 7:36amOral thrushacuteAugust 2024 7:36am [facility] Work Phone: 1(990) 770-147306-16-2025 History of Present illness Narrative* Shaina Munroe [...] to 35.9 in adult ([facility]) Type 2 diabetes mellitus with both eyes affected by mild nonproliferative retinopathy without macular edema, with long-term current use of insulin ([facility]) Social History Tobacco Use [...] units dinner (500 UNIT/ML SOPN) -Discontinued Labs [facility] [place] HEMOGLOBIN A1C/HEMOGLOBIN.TOTAL:MFR:PT:BLD:QN: 8.1 Outpatient prescription Medication marked as long-term Patient taking a medication differently The ASCVD Risk score (Hedrick DK, et al., 2019) failed to calculate [...] KWIKPEN) 100 UNIT/ML injection insulin pen needle (CANDDi [employer] Pentips) 31G X 8 mm misc Other Relevant Orders POCT glycosylated hemoglobin (Hb A1C) docked device (Completed) 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) Type 2 diabetes mellitus with both eyes affected by mild nonproliferative retinopathy without macular edema, with long-term current use of insulin ([facility]) Follow up in about [...] PO) Take by mouth CONTINUOUS BLOOD GLUC SEXER (DEXCOM G7 SEXER) DEVICE USE DIRECTED CONTINUOUS BLOOD GLUC SENSOR [...] PENTIPS) 31G X 8 MM MISC Drug Friant Unifine Pentips 31G X 8 MMmisc Injection subcutaneous tid USE DIRECTED Discontinued Medications No medications on file I have reviewed and reconciled the history and medication list with the patient today. documented in this encounterParkland Health [id number] Evaluation note* Diagnosis Onset Date Resolution Status Admit Date CKD (chronic kidney disease) stage 2, GF R 60-89 ml/min acuteApril 2024 7:41amConstipationacuteApril 2024 7:41amDiabetic neuropathyacuteApril 2024 7:41amFamily history of dementiaacuteApril 2024 7:41amRotator cuff syndrome of right shoulderacuteApril 2024 7:41am Spondylolisthesis, lumbar regionacuteApril 2024 7:41amChronic painacuteJuly 2024 8:03amOsteoarthritis of spine with radiculopathy, lumbar regionacute May 31, 2025 8:03amOther low back painacuteJuly 2024 8:03amTrochanteric bursitisacuteJuly 2024 8:03am [facility] Work Phone: 1(750) 698-592302-19-2025 Evaluation note* Diagnosis Onset Date Resolution Status Admit Date Chronic pain acuteFebruary 2024 8:00amOsteoarthritis of spine with radiculopathy, lumbar regionacuteFebruary 2024 8:00amOther low back painacuteFebruary 2024 8:00amArthrosis of right acromioclavicular jointacuteFebruary 2024 12:50pmPartial tear of right rotator cuffacuteFebruary 2024 12:50pm Rotator cuff syndrome of right shoulderacuteFebruary 2024 12:50pmTraumatic partial tear of biceps tendonacuteFebruary 2024 12:50pmChronic painacute February 16, 2025 9:32amOsteoarthritis of spine with radiculopathy, lumbar region acuteMarch 2024 9:32amOther low back painacuteMarch 2024 9:32am Trochanteric bursitisacuteMarch 2024 9:32amCKD (chronic kidney disease) stage 2, GFR 60-89 ml/minacuteApril 2024 7:41amConstipationacuteApril 2024 7:41amDiabetic neuropathyacuteApril 2024 7:41amFamily history of dementiaacuteApril 2024 7:41amRotator cuff syndrome of right shoulderacute March 06, 2025 7:41amSpondylolisthesis, lumbar regionacuteApril 2024 7:41am [facility] Work Phone: 1([phone]) 653-752802-10-2025 Evaluation note* Author France Carlson [facility] 2024 11:30amThe above note written by ITZ Teresa acting as human recorder, note dictated by Dr. Charan Casey. [facility] Work Phone: 1(639) 563-726902-10-2025 Telephone encounter Note* Telephone Encounter - Kati Clint - 01/09/2025 1:09 PM EST Pt's spouse called to ask if Dr. Merritt has any dexcom G7 sensors. She has been without for over aweek. Her prescription has been delayed due to insurance issues, She is having an injection tomorrow and is worried about her bg readings. [facility] [id number] Miscellaneous Notes* Telephone Encounter - Kati Jaramillo - 01/09/2025 1:09 PM EST Pt's spouse called to ask if Dr. Merritt has any dexcom G7 sensors. She has been without for over aweek. Her prescription has been delayed due to insurance issues, She is having an injection tomorrow and is worried about her bg readings. documented in this encounterParkland Health [id number] Evaluation note* Author France Carlson [facility] 2024 10:30amThe above note written by ITZ Teresa acting as human recorder, note dictated by Dr. Charan Casey. [facility] Work Phone: 1(780) 172-136711-20-2024 Evaluation note* Diagnosis Onset Date Resolution Status Admit Date Chronic pain acuteNovember 2023 8:01amOsteoarthritis of spine with radiculopathy, lumbar regionacuteNov2023 8:01amArthrosis of right acromioclavicular jointacuteNovember 2023 8:44amRotator cuff syndrome of right shoulder acuteNovember 2023 8:44amCoughacuteJanuary 2024 10:00amChronic pain acuteJanuary 2024 9:01amOsteoarthritis of spine with radiculopathy, lumbar regionacuteJanuary 2024 9:01am [facility] Work Phone: 1(683) 148-209311-20-2024 Evaluation note* Diagnosis Onset Date Resolution Status Admit Date Chronic pain acuteNovember 2023 8:01amOsteoarthritis of spine with radiculopathy, lumbar regionacuteNovember 2023 8:01amArthrosis of right acromioclavicular jointacuteNovember 2023 8:44amRotator cuff syndrome of right shoulder acuteNovember 2023 8:44amCoughacuteJanuary 2024 10:00amChronic pain acuteJanuary 2024 9:01amOsteoarthritis of spine with radiculopathy, lumbar regionacuteJanuary 2024 9:01amArthrosis of right acromioclavicular joint acuteJanuary 2024 7:33amRotator cuff syndrome of right shoulderacute December 29, 2024 7:33am [facility] Work Phone: 1(807) 830-877011-19-2024 History of Present illness Narrative* Shaina Munroe [...] levels elevate. Under more stress with her dads health. Diet: low carb, increase protein Drinks: water, [...] with long-term current use of insulin (CMS/HCC) Social History Tobacco Use Smoking status: Never [...] Charcot's joint arthropathy (CMS/HCC) Long-term insulin use ([facility]) Class 2 severe obesity with serious comorbidity and body mass index (BMI) of 39.0 to 39.9 in adult ([facility]) Type 2 diabetes mellitus with both eyes affected by mild nonproliferative retinopathy without macular edema, with long-term current use of insulin ([facility]) Follow up in about [...] at the same time. CONTINUOUS BLOOD GLUC SEXER (DEXCOM G7 SEXER) DEVICE USE DIRECTED CONTINUOUS BLOOD GLUC SENSOR [...] with the patient today. documented in this encounterParkland Health [id number] Procedure noteSelect Medical [facility]-14-[facility] Evaluation note* Diagnosis Onset Date Resolution Status Admit Date Chronic pain acuteOctober 2023 8:03amOsteoarthritis of spine with radiculopathy, lumbar regionacuteOctober 2023 8:03amSacroiliitis, not elsewhere classifiedacute September 12, 2024 8:03amChronic painacuteNovember 2023 8:01am Osteoarthritis of spine with radiculopathy, lumbar regionacuteNovember 2023 8:01am [facility] Work Phone: 1([phone]) 231-340810-14-2024 Evaluation note* Diagnosis Onset Date Resolution Status Admit Date Chronic pain acuteOctober 2023 8:03amOsteoarthritis of spine with radiculopathy, lumbar regionacuteOctober 2023 8:03amSacroiliitis, not elsewhere classifiedacute September 12, 2024 8:03amChronic painacuteNovember 2023 8:01am Osteoarthritis of spine with radiculopathy, lumbar regionacuteNovember 2023 8:01amArthrosis of right acromioclavicular jointacuteNov2023 8:44amRotator cuff syndrome of right shoulderacuteNov2023 8:44am [facility] Work Phone: 1(545) 619-571910-14-2024 Evaluation note* Diagnosis Onset Date Resolution Status Admit Date Chronic pain acuteOctober 2023 8:03amOsteoarthritis of spine with radiculopathy, lumbar regionacuteOctober 2023 8:03amSacroiliitis, not elsewhere classifiedacute September 12, 2024 8:03amChronic painacuteNovember 2023 8:01am Osteoarthritis of spine with radiculopathy, lumbar regionacuteNovember 2023 8:01amArthrosis of right acromioclavicular jointacuteNovember 2023 8:44amRotator cuff syndrome of right shoulderacuteNovember 2023 8:44am CoughacuteJanuary 2024 10:00am [facility] Work Phone: 1(843) 429-852409-26-2024 History of Present illness Narrative* Rosalinda Torres [...] remains way above target and due to Cqdosow-Mumna-Yxrju joints she has limited exercise capacity. Her [...] machine patient has been compliant with it. 8-Akxlwde-Sfptk-Tooth joint in the ankles status post recent [...] , Rfl: ergocalciferol (Vitamin D-2) 1.25 MG (37967 UT) capsule, Take 1 capsule (50,000 Units) [...] type, unspecified whether angina present, unspecified whether sycuan or transplanted heart Follow Up In Cardiology [...] exam, discussion and plan. documented in this [facility] Work Phone: 1([phone]) 221-208409-26-2024 Instructions* Patient Instructions* Enedina Isidro LPN - [...] Provided instructions on exercise. documented in this [facility] Work Phone: 1(359) 653-936507-02-2024 Procedure noteSelect Medical [facility] [place]03-25-2024 History of Present illness Narrative* Rosalinda Torres [...] She has orthopedic problems resulting from her Oxhdxtr-Dilhw-Bienq disease. Her labs have been followed closely. [...] machine patient has been compliant with it. 8-Wmvjsxa-Faefo-Tooth joint in the ankles status post recent [...] , Rfl: ergocalciferol (Vitamin D-2) 1.25 MG (47553 UT) capsule, Take 1 capsule (50,000 Units) [...] type, unspecified whether angina present, unspecified whether sycuan or transplanted heart Follow Up In Cardiology 2. Essential hypertension 3. 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 4. Hyperlipidemia, unspecified hyperlipidemia type 5. Obstructive sleep apnea syndrome 6. Class 2 obesity with body mass index (BMI) of 37.0 to 37.9 in adult, unspecified obesity type, unspecified whether serious comorbidity present 7. Insulin-requiring or dependent type II diabetes mellitus ([facility]) Scribe Attestation By signing my name below, IEnedina LPN, Scribe attest that this documentation has [...] exam, discussion and plan. documented in this [facility] Work Phone: 1(313) 355-734603-25-2024 Instructions* Patient Instructions* Enedina Isidro LPN - [...] 6 m Same medications [place] Work Phone: 1(226) 703-959801-31-2024 Evaluation note* Encounter Date Diagnosis Assessment Notes Treatment Notes Treatment Clinical Notes Nov, Asthmatic bronchitis (ICD-10 - J 45.909) Patient describes a thick sputum, green/yellow sputum. States that she has been having coughing spells that make her want to throw up, however she has not thrown up or passed out due to coughing. Shedenies any dizziness. Does have slight sinus involvement. [...] to call if she does not improve. [employer] Other 12-05-2023 Evaluation note* Encounter Date Diagnosis Assessment Notes Treatment Notes Treatment Clinical Notes Oct, Hyperlipidemia (ICD-10 - E78.5) [employer] Other 11-29-2023 Evaluation note* Encounter Date Diagnosis Assessment Notes Treatment Notes Treatment Clinical Notes Sep, Trochanteric bursitis of left hi p (ICD-10 - M70.62) [employer] Other 11-29-2023 Evaluation note* Encounter Date Diagnosis [...] and she agrees with our treatment plan. Sep,Trochanteric bursitis of left hip (ICD-10 - M70.62)Patients primary complaint today is persistent pain over the outide of the hip. He shows notable tenderness over the trochanteric bursa upon exam. Based on location of pain and exam findings, patientis a candidate for a repeat left trochanteric bursa injection which we will proceed with today in the office. Risks and benefits of procedure explained to patient; patient verbalizes understanding. Patient tolerated well. Sep,Other chronic pain (ICD-10 - G89.29) Sep,OtherAbove note written by Willi Leiva MA, [employer] Re[employer]. Edited and approved by Dr. Blas Ortiz MD. [employer] Other 11-22-2023 Evaluation note* Encounter Date Diagnosis [...] of symptoms occur by end of treatment. [employer] Other 11-20-2023 Evaluation note* Encounter Date Diagnosis Assessment Notes Treatment Notes Treatment Clinical Notes Sep, Cervical spondylosis without mye lopathy (ICD-10 - M47.812) [employer] Other 11-08-2023 Evaluation note* Encounter Date Diagnosis Assessment Notes Treatment Notes Treatment Clinical Notes Sep, Hypertensive chronic kidney disease with stage 1 through stage 4 chronic kidney disease, or unspecified chronic kidney disease (ICD-10 - I12.9) [employer] Other 11-07-2023 History and physical note Author Yasmeen Treadwell [facility] October 06, 2023 8:31amNote Date/TimeNov2022 8:31[place] [id number] Gastroenterology H&P Signed Patient: Rita Cobb MR#: [id number] [birth year] : 1960 Acct:[id number] Age/Sex: 62 / F Adm Date: 3 Loc: Room: Type: [facility] Attending Dr: Yasmeen Treadwell MD Copies to: Charan Casey,DO Yasmeen Treadwell MD~ Date of Service: 10/06/2023 HISTORY & PHYSICAL: Patient's history with special attention to the cardiovascular, pulmonary systems and the current problem was reviewed with the patient immediately prior to the procedure. Present medications and doses reviewed in the EMR. Allergies and pertinent laboratory tests were also re viewedat this time in the EMR. The physical [...] Treadwell M.D. Documented By: Yasmeen Treadwell MD 10/06/23 0830 Signed By: <Electronically signed by aYsmeen Treadwell MD> 10/06/23 0831 [facility] Work Phone: 1(588) 915-490511-07-2023 Procedure noteSelect Medical [facility] [place]10-25-2023 Evaluation note* Encounter Date Diagnosis Assessment Notes [...] and she agrees with our treatment plan. Aug,Trochanteric bursitis of left hip (ICD-10 - M70.62)We discussed treatment options for the patient's persistent left hip/gluteal pain. Patient shows notable tenderness on exam over the left trochanteric bursa. Given location of pain and exam findings,patient is a candidate for left trochanteric bursa injection, which we will proceed with today in the office. Risks and benefits of procedure explained to patient; patient verbalizes understanding. Benjamin whipple tolerated this well. Aug,Other chronic pain (ICD-10 - G89.29) Aug,OtherAbove note written by Corina Sánchez LPN, [employer] Receiver. Edited and approved by Dr. Blas Ortiz MD. [place] [employer] Other 10-17-2023 Evaluation note* Encounter Date Diagnosis Assessment Notes Treatment Notes Treatment Clinical Notes Aug, Hypertensive chronic kidney disease with stage 1 through stage 4 chronic kidney disease, or unspecified chronic kidney disease (ICD-10 - I12.9) Blood pressure is usually controlled. She appears to be euvolemic. Continue to monitor Bp at home and call office if it is above 140 over 90 mmHg. Aug,hronic kidney disease, stage III (moderate) (ICD-10 - N18.30)She has CKD due to diabetic nephropathy and hypertensive nephrosclerosis. Her serum creatinine is 1.2 mg/dL. She has no evidence of hematuria and proteinuria. Her renal US showed left nephrolithiasis. I have discussed with the importance of the good blood pressure and DM control to slow down the progression of disease. Aug,Type 2 diabetes mellitus with diabetic chronic kidney disease (ICD- 10 - E11.22)Her sugars are within acceptable range. I have advised her to continue to follow with [place] for DM management. Continue olmesartan for renal protection. She reported that she did not tolerate Jardiance in the past. We will hold to add finerenone now due to risk of hypotension and hyperkalemia. 17 Aug, 2023Vitamin D deficiency (ICD-10 - E55.9)Her vitamin D is withint the goal and her calcium is normal. Continue oral vitamin D once a week Aug,Hyperuricemia (ICD-10 - E79.0)Her uric acid is within the goal and she denies any recent gout flare. Continue oral allopurinol. Aug,Hyperparathyroidism (ICD-10 - E21.3)MBD parameters including calcium, phosphorus, PTH and vitamin D are within the goal. Continue oral v itamin D. Aug,Hypomagnesemia (ICD-10 - E83.42)Continue with oral magnesium. Aug,Hyperlipidemia (ICD-10 - E78.5)Continue statins. Monitor LFTs and lipid profile with PCP. I would recommend to avoid the high doseof the Crestor and CKD patient due to the risk of worsening renal function and hematuria. [employer] Other 09-19-2023 Evaluation note* Encounter Date Diagnosis Assessment Notes Treatment Notes Treatment Clinical Notes Jul, Hyperuricemia (ICD-10 - E79.0) Jul,iabetic neuropathy (ICD-10 - E11.40) [employer] Other 09-18-2023 Evaluation note* Encounter Date Diagnosis Assessment Notes Treatment Notes Treatment Clinical Notes Jul, Bilateral sacroiliitis (ICD-10 - M46.1) We discussed treatment options for the patient's persistent low bilateral lumbar/gluteal pain. She shows notable pain consistent with the sacroiliac joint and right trochanteric bursa. She has failedmultiple previous conservative treatment options. I agree with neurosurgery, patient is a candidatefor bilateral sacroiliac joint and right trochanteric bursa injection, which we will proceed with. Risks and benefits of procedure explained to patient; patient verbalizes understanding. Anatomy of spine discussed in detail with patient in regard to patients condition. Jul,Trochanteric bursitis of right hip (ICD-10 - M70.61) Jul,Other chronic pain (ICD-10 - G89.29) Jul,OtherAbove note written by Corina Sánchez LPN, [employer] Receiver. Edited and approved by Dr. Blas Ortiz MD. [employer] Other 09-12-2023 Evaluation note* Encounter Date Diagnosis Assessment Notes Treatment Notes Treatment Clinical Notes Jul, History of fusion of cervical sp ine (ICD-10 - Z98.1) Jul,History of lumbar fusion (ICD-10 - Z98.1)The patient is having diffuse low back pain [...] in doing an MRI at this point. Jul,Other chronic pain (ICD-10 - G89.29) Jul,Low back pain, unspecified (ICD-10 - M54.50) [employer] Other 09-06-2023 Evaluation note* Encounter Date Diagnosis Assessment Notes Treatment Notes Treatment Clinical Notes Jul, Cervical spondylosis without mye lopathy (ICD-10 - M47.812) Patient has known cervical spondylosis and does use the flexeril but this does cause significant post fatigue. Patient states that she was recently approved for disability due to all of her other medical comorbidities Jul,Type 2 diabetes mellitus with diabetic neuropathy, unspecified (ICD- 10 - E11.40) Patient is following with Dr. [...] to illness but has yet to reschedule. Jul,Spondylolisthesis, lumbar region (ICD-10 - M43.16) Patient has [...] patient with an order for therapy to assistwith her setting up the TENS unit for her pain management. Jul,Rib pain on right side (ICD-10 - R07.81) I have reviewed the xray of the ribs with patient today Jul,harcot's joint of left foot (ICD-10 - M14.672) Patient is following with Dr. Castro for her left foot/joint pain. She is scheduled to see him again today. She has significant neuropathy of the feet with unsteady gait. I have encouraged patient to follow up with Dr. Castro as scheduled Jul,Screening for colon cancer (ICD-10 - Z12.11) [employer] Other 08-03-2023 Evaluation note* Encounter Date Diagnosis Assessment Notes Treatment Notes Treatment Clinical Notes Jun, Type 2 diabetes wicho itus with diabetic neuropathy, unspecified (ICD-10 - E11.40) [employer] Other 06-20-2023 Evaluation note* Encounter Date Diagnosis Assessment Notes Treatment Notes Treatment Clinical Notes Apr, Mid back pain (ICD-10 - M54.9) In house urine was negative. We will order XR to rule out any abnormalities. Patient is scheduled to see Dr. Ortiz this week. Apr,Rib pain on right side (ICD-10 - R07.81) I did note a bruise on the right side of the back that the patient was unaware of. Denies any injury. Patient voiced pain upon palpation of the right ribs. We will order XR to rule out abnormalities. Apr,Spondylolisthesis, lumbar region (ICD-10 - M43.16) Patient is to continue to follow with Dr. Ortiz as scheduled. Apr,Type 2 diabetes mellitus with diabetic neuropathy, unspecified (ICD- 10 - E11.40) Patient is to continue to follow with Tondra Mapus as scheduled. Apr,ervical spondylosis without myelopathy (ICD-10 - M47.812) Refill provided of the above medication. [employer] Other 06-06-2023 Evaluation note* Encounter Date Diagnosis Assessment Notes Treatment Notes Treatment Clinical Notes Apr, Type 2 diabetes wicho itus with diabetic neuropathy, unspecified (ICD-10 - E11.40) [employer] Other 05-15-2023 NotePROCEDURE: XR FOOT LT 2V HISTORY: Pain COMPARISON: XR foot left 04/07/2023 FINDINGS: BONES:Several intraoperative spot fluoroscopic images demonstrate removal of 3 separate lag screws fixating the second and fourth metatarsophalangeal joints. SOFT TISSUES:Expected intraoperative findings. OTHER: Negative. IMPRESSION: 1. Hardware revision involving left midfoot. Electronically authenticated by: BLANKA OLGUIN Date: 2023-04-13 11:35[facility]05-15-2023 NotePROCEDURE: XR FOOT LT MIN 3 VIEWS [...] Electronically authenticated by: BLANKA OLGUIN Date: 2023-04-13 11:29[facility]05-09-2023 NotePROCEDURE: XR FOOT LT MIN 3 VIEWS [...] Electronically authenticated by: BLANKA OLGUIN Date: 2023-04-07 13:31[facility]05-08-2023 Evaluation note* Encounter Date Diagnosis Assessment Notes Treatment Notes Treatment Clinical Notes March, Type 2 diabetes wicho itus with diabetic neuropathy, unspecified (ICD-10 - E11.40) March,Type 2 diabetes mellitus with hyperglycemia, without long-term current use of insulin (ICD-10 - E11.65) [employer] Other 05-02-2023 Evaluation note* Encounter Date Diagnosis Assessment Notes Treatment Notes Treatment Clinical Notes March, Charcot's joint of left foot (IC D-10 - M14.672) Patient had recent surgery with Dr. Castro 12/29/22. March,Hypertensive chronic kidney disease with stage 1 through stage 4 chronic kidney disease, or unspecified chronic kidney disease (ICD-10 - I12.9) The patients blood pressure was WNL upon check in. Patient is to continue to follow with nephrologyas scheduled. I encouraged the patient to continue with efforts on getting disability as I am agreeable the patient is eligible due to multiple health issues. March,Sleep apnea, unspecified type (ICD-10 - G47.30) Patient is to continue to follow with Dr. Sepulveda as scheduled. March,rimary osteoarthritis, right hand (ICD-10 - M19.041) Noted upon examination. March,rimary osteoarthritis, left hand (ICD-10 - M19.042) Noted upon examination. March,Type 2 diabetes mellitus with diabetic neuropathy, unspecified (ICD- 10 - E11.40) Patient is to continue to follow with Dr. Munroe as scheduled. Most recent A1C was 7.0. [employer] Other 04-27-2023 Evaluation note* Encounter Date Diagnosis Assessment Notes Treatment Notes Treatment Clinical Notes Feb, Hypertensive chronic kidney disease with stage 1 through stage 4 chronic kidney disease, or unspecified chronic kidney disease (ICD-10 - I12.9) Feb,Type 2 diabetes mellitus with diabetic neuropathy, unspecified (ICD- 10 - E11.40) [employer] Other 04-11-2023 Evaluation note* Encounter Date Diagnosis Assessment Notes Treatment Notes Treatment Clinical Notes Feb, Hypertensive chronic kidney disease with stage 1 through stage 4 chronic kidney disease, or unspecified chronic kidney disease (ICD-10 - I12.9) Blood pressure is controlled. Continue to monitor Bp at home Feb,hronic kidney disease, stage III (moderate) (ICD-10 - N18.30)She has CKD due to diabetic nephropathy and hypertensive nephrosclerosis. Her serum creatinine is 1.2 mg/dL. She has no evidence of hematuria and proteinuria. Her renal US showed left nephrolithiasis. I have discussed with the importance of the good blood pressure and DM control to slow down the progression of disease. Feb,Type 2 diabetes mellitus with diabetic chronic kidney disease (ICD- 10 - E11.22)Her sugars are within acceptable range. I have [...] due to risk of hypotension and hyperkalemia. Feb,Vitamin D deficiency (ICD-10 - E55.9)Her vitamin D is withint the goal and her calcium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 HistoryProcedure:tubal ligationSurgical History Procedure:Low back fusionSurgical Historytubal lmgtfbau2732Gkdzrmtq History2 parathyroids ipqmjjc33/2013Surgical HistoryProcedure:cervical fusionSurgical HistoryBilateral eyelid iheyixs26/2012Surgical HistoryProcedure:x2 thyroid glands agaryeg1360Mlmquooi Historyleft knee arthoscopy02/2016Surgical History lithotripsy03/2015Surgical Historyleft knee arthroscopy02/2016Surgical History partial left knee replacement12/2016Surgical Historyincision and drainage necrotizing fasciiitis seroma/bullae left lateral ankle/midfoot12/27/17urgical Historypartial left knee nyxdxbloyjh06/2017Surgical HistoryI&D, debridement necrotizing fasciitis left ankle12/27/2017Surgical HistoryLeft ankle I & D1-2018 Surgical HistoryGallbladder01/2018Surgical HistoryLap. cholecystectomy02/17/2018 Surgical Gfmmhsqmajvsnvggsi52/19/2019Surgical HistoryColonoscopy06/17/2019 Surgical Historylow back surgery-njqvgt4607/25/2020Surgical HistoryCardiac cath with stent placement mid LAD03/27/2022urgical Historyreconstruction lt foot muescmh5512/29/2022Hospitalization Uiwzrdaavonxtrockf7857Xmmfntpllxuqdst History necrotizing fasciitis11/2017Hospitalization Historysee above [employer] Other 02-01-2015 History general Narrative - Reported* Type Description Date Medical History DM2 Medical HistoryHTNMedical HistorySleep apneaMedical Historyhypercalcemia due to PHT [facility] HistoryneuropathyMedical History12/2014 colonscopy refusedMedical History12/31/2015 MRI left kneeMedical History04/15/19 colonoscopy refused; cologuard orderedMedical Qpbcuoy78/19/19 Colonoscopy-abnormal repeat in 4 years (pos cologuard)Medical Kofphxc72/2019 Pap w/ Dr. SeymourerMedical History Skin ulcer of left foot, limited to breakdown of skinMedical HistorySepsis, unspecified organismMedical HistoryH/O parathyroidectomyMedical HistoryRIGHT FOOT FRACTUREMedical HistoryLEFT FOOT LUCAS SEEING PODIATRISTSurgical History cervical fusion and low back zbkhjk3139Kgzcjqjv History Procedure:;Disease:Wfsjabuwb5444Owlaeiqp Historyprevious cervical fusion 1997Surgical HistoryProcedure:;Disease:Xkaskwxmr1897Daehxyxi History c/uhgemyf1753Aptswqnj HistoryProcedure:;Disease:Pyywttkmz4624Vwhrzgaa Ofedhfyvuamfuabvi8546Lntteckr HistoryProcedure:tubal ligationSurgical History Procedure:Low back fusionSurgical Historytubal aoqqshur7224Jvscorlf History2 parathyroids /2013Surgical HistoryProcedure:cervical fusionSurgical HistoryBilateral eyelid qivuptf02/2012Surgical HistoryProcedure:x2 thyroid glands oadlgcb1323Fxryiqyo Historyleft knee arthoscopy02/2016Surgical History lithotripsy03/2015Surgical Historyleft knee arthroscopy02/2016Surgical History partial left knee replacement12/2016Surgical Historyincision and drainage necrotizing fasciiitis seroma/bullae left lateral ankle/midfoot12/27/17urgical Historypartial left knee uimvieckxub76/2017Surgical HistoryI&D, debridement necrotizing fasciitis left ankle12/27/2017Surgical HistoryLeft ankle I & D1-2017 Surgical HistoryGallbladder01/2018Surgical HistoryLap. cholecystectomy02/17/2018 Surgical Ypyxlyfpgmlauihias58/19/2019Surgical HistoryColonoscopy06/17/2019 Surgical Historylow back surgery-yomzqs7607/25/2020Surgical HistoryCardiac cath with stent placement mid LAD03/27/2022urgical Historyreconstruction lt foot surgery Dr. Castro12/29/2022Hospitalization Oremtupsvumqnakodl0818 Hospitalization Historynecrotizing fasciitis11/2017Hospitalization Historysee above [employer] Other 02-01-2015 History general Narrative - Reported* Type Description Date Medical History DM2 Medical HistoryHTNMedical HistorySleep apneaMedical Historyhypercalcemia due to PHT s[facility]Medical HistoryneuropathyMedical History12/2014 colonscopy refusedMedical History12/31/2015 MRI left kneeMedical History04/15/19 colonoscopy refused; cologuard orderedMedical Lytkqio04/19/19 Colonoscopy-abnormal repeat in 4 years (pos cologuard)Medical Alpsvyo88/2019 Pap w/ Dr. SeymourerMedical History Skin ulcer of left foot, limited to breakdown of skinMedical HistorySepsis, unspecified organismMedical HistoryH/O parathyroidectomyMedical HistoryRIGHT FOOT FRACTUREMedical HistoryLEFT FOOT LUCAS SEEING PODIATRISTSurgical History cervical fusion and low back gixzxe9808Jsgrbnmf History Procedure:;Disease:Wdvyadlaf2136Fxuwqyva Historyprevious cervical fusion 1997Surgical HistoryProcedure:;Disease:Crvdqptkv6709Zxqfnawy History c/pkhdcpl7955Zxyagrkr HistoryProcedure:;Disease:Lfnylkqfb0991Xmkeqbpo Ovrivfhlqqmuxgebo0080Rweobnna HistoryProcedure:tubal ligationSurgical History Procedure:Low back fusionSurgical Historytubal rjvrlufa0098Zjhlxvhq History2 parathyroids ucdspmn63/2013Surgical HistoryProcedure:cervical fusionSurgical HistoryBilateral eyelid iqdtfst23/2012Surgical HistoryProcedure:x2 thyroid glands oejspnb3027Hptlnlyb Historyleft knee arthoscopy02/2016Surgical History lithotripsy03/2015Surgical Historyleft knee arthroscopy02/2016Surgical History partial left knee replacement12/2016Surgical Historyincision and drainage necrotizing fasciiitis seroma/bullae left lateral ankle/midfoot12/27/17urgical Historypartial left knee /2017Surgical HistoryI&D, debridement necrotizing fasciitis left ankle12/27/2017Surgical HistoryLeft ankle I & D1-2018 Surgical HistoryGallbladder01/2018Surgical HistoryLap. cholecystectomy02/17/2018 Surgical Dvpclnphtyrufmfmtv06/19/2019Surgical HistoryColonoscopy06/17/2019 Surgical Historylow back surgery-jrhbgn9807/25/2020Surgical HistoryCardiac cath with stent placement mid LAD03/27/2022urgical Historyreconstruction lt foot surgery Dr. Castro12/29/2022Surgical HistorySTEROID INJECTIONS IN LOW BACK AND RIGHT HIP08/2023Hospitalization Cjmvdubqsihpzmdwsv1151Zwdvtovqcmlyiiy Historynecrotizing fasciitis11/2017Hospitalization Historysee above [facility] [employer] Other Evaluation noteNort [employer] Other Evaluation noteNo InformationNort [employer] Other Evaluation noteNort [employer] Other evaluation noteNo assessment information available [facility] Work Phone: Evaluation note* Diagnosis Coronary artery disease, unspecified vessel or lesion type, unspecified whether angina present, unspecified whether sycuan or transplanted heart- Primary Essential hypertension Unspecified essential hypertension 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 Hyperlipidemia, unspecified hyperlipidemia type Obstructive sleep apnea syndrome Obstructive sleep apnea (adult) (pediatric) Class 2 obesity with body mass index (BMI) of 37.0 to 37.9 in adult, unspecified obesity type, unspecified whether serious comorbidity present Insulin-requiring or dependent type II diabetes mellitus ([facility]) Type II or unspecified type diabetes mellitus without mention of complication, not stated as uncontrolled documented in this encounter [place] Work Phone: Evaluation note* Diagnosis Onset Date Resolution Status Chronic pain acuteInflammation of sacroiliac jointacuteOsteoarthritis of spine with radiculopathy, lumbar regionacuteTrochanteric bursitisacute [facility] Work Phone: Evaluation note* Diagnosis Onset Date Resolution Status Chronic pain acuteInflammation of sacroiliac jointacuteOsteoarthritis of spine with radiculopathy, lumbar regionacuteTrochanteric bursitisacuteCKD (chronic kidney disease) stage 3, GFR 30-59 ml/minacuteHyperlipidemiaacuteHyperparathyroidism wpwkhEGB-EUZA-[id number]qpsqnowwcsvrvogeisPrufylcaxpthmmk acuteType 2 diabetes mellitus with diabetic chronic kidney diseaseacute [facility] Work Phone: Evaluation note* Diagnosis Onset Date Resolution Status Chronic pain acuteInflammation of sacroiliac jointacuteOsteoarthritis of spine with radiculopathy, lumbar regionacuteTrochanteric bursitisacuteCKD (chronic kidney disease) stage 3, GFR 30-59 ml/minacuteHyperlipidemiaacuteHyperparathyroidism ahmnnGYI-BNZZ-[id number]lrmagauqeinlnnmbtvMgcdjqhccpwcufi acuteType 2 diabetes mellitus with diabetic chronic kidney diseaseacuteChronic painacuteLumbar muscle painacuteOsteoarthritis of spine with radiculopathy, lumbar regionacute [facility] Work Phone: Evaluation note* Diagnosis Onset Date Resolution Status CKD (chronic kidney disease) stage 3, GF R 30-59 ml/min nczjhSkjbazdzimqgzlctimrQxgnizbrahconfdgwabyehekDLP-FRAH-[id number] HyperuricemiaacuteHypomagnesemiaacuteNephrolithiasisacuteType 2 diabetes mellitus with diabetic chronic kidney diseaseacuteChronic painacuteLumbar muscle painacuteOsteoarthritis of spine with radiculopathy, lumbar regionacuteChronic painacuteOsteoarthritis of spine with radiculopathy, lumbar regionacute Sacroiliitis, not elsewhere classifiedacute [facility] Work Phone: evaluation note* Diagnosis Onset Date Resolution Status Chronic pain acuteLumbar muscle painacuteOsteoarthritis of spine with radiculopathy, lumbar regionacuteChronic painacuteOsteoarthritis of spine with radiculopathy, lumbar regionacuteSacroiliitis, not elsewhere classifiedacute [facility] Work Phone: evaluation note* Diagnosis Onset Date Resolution Status Chronic pain acuteLumbar muscle painacuteOsteoarthritis of spine with radiculopathy, lumbar regionacuteChronic painacuteOsteoarthritis of spine with radiculopathy, lumbar regionacuteSacroiliitis, not elsewhere classifiedacuteObstructive apneaacute [facility] Work Phone: evaluation note* Diagnosis Onset Date Resolution Status Chronic pain acuteLumbar muscle painacuteOsteoarthritis of spine with radiculopathy, lumbar regionacuteChronic painacuteOsteoarthritis of spine with radiculopathy, lumbar regionacuteSacroiliitis, not elsewhere classifiedacuteObstructive apneaacute Chronic painacuteOsteoarthritis of spine with radiculopathy, lumbar regionacute Sacroiliitis, not elsewhere classifiedacute [facility] Work Phone: Evaluation note* Diagnosis Onset Date Resolution Status Chronic pain acuteOsteoarthritis of spine with radiculopathy, lumbar regionacuteSacroiliitis, not elsewhere classifiedacute [facility] Work Phone: evaluation note* Diagnosis Type 2 diabetes mellitus with peripheral neuropathy (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) Long-term insulin use ([facility]) Class 2 severe obesity due to excess calories with serious comorbidity and body mass index (BMI) of39.0 to 39.9 in adult ([facility]) Type 2 diabetes mellitus with peripheral neuropathy (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) Class 2 severe obesity due to excess calories with serious comorbidity and body mass index (BMI) of39.0 to 39.9 in adult ([facility]) Long-term insulin use ([facility]) Spondylolisthesis at L3-L4 level Class 2 severe obesity due to excess calories with serious comorbidity and body mass index (BMI) of38.0 to 38.9 in adult ([facility])- Primary Type 2 diabetes mellitus with both eyes affected by mild nonproliferative retinopathy without macular edema, with long-term current use of insulin ([facility]) Type 2 diabetes mellitus with peripheral neuropathy (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) Long-term insulin use ([facility]) Type 2 diabetes mellitus with peripheral neuropathy (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) Type 2 diabetes mellitus with both eyes affected by mild nonproliferative retinopathy without macular edema, with long-term current use of insulin ([facility]) Long-term insulin use ([facility]) Class 2 severe obesity due to excess calories with serious comorbidity and body mass index (BMI) of39.0 to 39.9 in adult ([facility]) documented in this encounter [facility] HealthcareEvaluation note* Diagnosis Coronary artery disease, unspecified vessel or lesion type, unspecified whether angina present, unspecified whether sycuan or transplanted heart Elevated coronary artery calcium [...] serious comorbidity present documented in this encounter [place] Work Phone: Evaluation note* Author [place] [facility] 2024 10:30amThe above note written by ITZ Teresa acting as human recorder, note dictated by Dr. Charan Casey. 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) Long-term insulin use (HCC) Spondylolisthesis at L3-L4 level Class 2 severe obesity due to excess calories with serious comorbidity and body mass index (BMI) of38.0 to 38.9 in adult ([facility])- Primary Type 2 diabetes mellitus with [...] serious comorbidity and body mass index (BMI) of39.0 to 39.9 in adult (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) Type 2 diabetes mellitus with Charcot's [...] index (BMI) of35.0 to 35.9 in adult (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) Class 2 severe obesity due to excess calories with serious comorbidity and body mass index (BMI) of39.0 to 39.9 in adult ([facility]) Long-term insulin use ([facility]) Spondylolisthesis at L3-L4 level Class 2 severe obesity due to excess calories with serious comorbidity and body mass index (BMI) of38.0 to 38.9 in adult ([facility])- Primary Type 2 diabetes mellitus with both [...] serious comorbidity and body mass index (BMI) of39.0 to 39.9 in adult ([facility]) 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)- Primary Type 2 diabetes mellitus with peripheral neuropathy (HCC) Type 2 diabetes mellitus with both eyes affected by mild nonproliferative retinopathy without macular edema, with long-term current use of insulin (HCC) Long-term insulin use ([facility]) Class 2 severe obesity due to excess calories with serious comorbidity and body mass index (BMI) of37.0 to 37.9 in adult ([facility]) 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)- Primary Type 2 diabetes mellitus with peripheral neuropathy ([facility]) Type 2 diabetes mellitus with both eyes affected by mild nonproliferative retinopathy without macular edema, with long-term current use of insulin (HCC) Long-term insulin use ([facility]) Class 2 severe obesity due to excess calories with serious comorbidity and body mass index (BMI) of35.0 to 35.9 in adult ([facility]) Type 2 diabetes mellitus with peripheral neuropathy ([facility])- Primary 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 ([facility]) Type 2 diabetes mellitus with both eyes affected by mild nonproliferative retinopathy without macular edema, with long-term current use of insulin (HCC) Long-term insulin use ([facility]) Class 2 severe obesity due to excess calories with serious comorbidity and body mass index (BMI) of35.0 to 35.9 in adult ([facility]) [facility] N[facility] - ReportedIO [employer] Other History general Narrative - ReportedIO [employer] Other Hospital Discharge instructions Additional Instructions DISCHARGE [...] years. -Follow up with PCP. -Office number [phone]. [facility] Work Phone: Relirt for referral (narrative)* Consultation (Routine) - AuthorizedSpecialtyDiagnoses / ProceduresReferred By Contact Referred To ContactCardiology Diagnoses Coronary artery disease, unspecified vessel or lesion type, unspecified whether angina present, unspecified whether sycuan or transplanted heart Procedures Follow Up In Cardiology Rosalinda Torres MD [address] [place] [id number] Rosalinda Torres MD [address] [place] [address], [address] [address] Referral IDStatusReasonStart DateExpiration DateVisits RequestedVisits [id number]/25/20243/ [facility] Work Phone: Reumtb for referral (narrative)* Consultation (Routine) - AuthorizedSpecialtyDiagnoses / ProceduresReferred By Contact Referred To ContactCardiology Diagnoses Coronary artery disease, unspecified vessel or lesion type, unspecified whether angina present, unspecified whether sycuan or transplanted heart Procedures Follow Up In Cardiology Rosalinda Torres MD [address] [facility] [address] [place] [address] Rosalinda Torres MD [address] [facility] [address] [place] [address] Referral IDStatusReasonStart DateExpiration DateVisits RequestedVisits [id number]/26/20249/ [facility] [place] Work Phone: Remlxr for referral (narrative)No reason for referral information availableSt. [facility] Work Phone: Summary Purpose Family History [...] father Heart disease Unknown Presence of cardiac pacemakerUnknownUnknownHistory of coronary artery bypass surgeryUnknownDementiaUnknownNot SpecifiedAsthmaUnknown Relationship Condition Age at Onset Recorded Date/T vero father Heart disease Unknown Presence of cardiac pacemakerUnknownPresence of stent in coronary arteryUnknown History of coronary artery bypass surgeryUnknownDementiaUnknownNot Specified AsthmaUnknown Unknown Family Member Name Dates Details Family history of CABG: Fath er(V17.49, Z82.49) Status:Active Relationship Condition Age at Onset Recorded Date/T vero father Heart disease Unknown Presence of cardiac pacemakerUnknownPresence of stent in coronary arteryUnknown History of coronary artery bypass surgeryUnknownDementiaUnknownNot Specified AsthmaUnknownfatherHypertensionUnknownHeart diseaseUnknowngrandparentDiabetes mellitusUnknownDeceasedUnknowngrandparentDeceasedUnknownDiabetes mellitusUnknown Not SpecifiedHypertensionUnknownsiblingDiabetes mellitusUnknown Relationship Condition Age at Onset Recorded Date/T vero father Heart disease Unknown Presence of cardiac pacemakerUnknownPresence of stent in coronary arteryUnknown History of coronary artery bypass surgeryUnknownDementiaUnknownmotherAsthma UnknownfatherHypertensionUnknownHeart diseaseUnknowngrandparentDiabetes mellitus UnknownDeceasedUnknowngrandparentDeceasedUnknownDiabetes mellitusUnknownmother HypertensionUnknownsiblingDiabetes mellitusUnknown Relationship Condition Age at Onset Recorded Date/T vero father Presence of stent in coronary artery Unkn own DementiaUnknownHeart diseaseUnknownPresence of cardiac pacemakerUnknownHistory of coronary artery bypass surgeryUnknownHypertensionUnknownmotherAsthmaUnknown grandparentDiabetes mellitusUnknownDeceasedUnknownsiblingDiabetes mellitus Unknown Relationship Condition Age at Onset Recorded Date/T vero grandparent Diabetes mellitus Unknown DeceasedUnknownsiblingDiabetes mellitusUnknownfatherDementiaUnknownDiabetes mellitusUnknownHeart diseaseUnknownMalignant neoplasmUnknownHypertensionUnknown History of replacement of both shoulder jointsUnknownPresence of cardiac pacemakerUnknownmotherHypertensionUnknownHistory of joint replacementUnknown History of spinal fusionUnknownAsthmaUnknownbrotherDiabetes mellitusUnknown brotherHypertensionUnknownPsoriasisUnknownpaternal grandfatherDementiaUnknown Advance Directives No Advanced Directives Records Found [...] the patient is agreeable to go on ncxvxzrpoait37 mg daily along with Zetia 10 mg [...] any trouble since her angioplasty. She has Yktwbot-Vmdkk-Epjln disease and had recent surgery on the [...] has been compliant with it. * 7 Skfvypi-Ftlbz-Uvnch joint in the ankles status post recent surgery on the left foot with plan to repair the right foot down the road Reason for Referral Reason Patient is need ing to having screening colonoscopy. Please schedule with [facility] Gastro. Patient DOES NOT want to see Dr. Bryant. Please call patient to schedule Diagnosis 1 Screening for colon cancer (Z12.11) Referral Organization [facility] Family [facility] [place] Referring Provider First Name Charan Referring Provider Last Name Jacinto Referring Provider Specialty Family Prac pop Referred Organization [facility] Gastroenterolo gy Referred Provider Yasmeen Treadwell Referred Address [address] [facility] [address], [place],[address] Referred Provider Specialty Gastroentero logy Referral Priority Routine General Notes Fore, Renée M 023 10:30:05 AM >Received today and sent P2P Reason stat consult and lou at Diagnosis 1 Chest pressure (R07. 89) Diagnosis 2 Shortness of breath (R06.02) Diagnosis 3 Type 2 diabetes wicho itus with diabetic neuropathy, unspecified (E11.40) Diagnosis 4 Obstructive apnea (G 47.33) Referral Organization [facility] [place] Referring Provider First Name Charan Referring Provider Last Name Jacinto Referring Provider Specialty Family Prac pop Referred Organization [facility] enter Referred Address [address] ,[place], [place],[address] Referred Provider Specialty Cardiology Referral Priority Stat Referral Appointment Date 2022-03-14 Chief Complaint and Reason for Visit Chief Complaint lucas on feet E11.40 E79.9 E78.5 N18.30 I12.9 E11.22 e11.610 Chief Complaint lucas on feet E11.40 E79.9 E78.5 N18.30 I12.9 E11.22 e11.610 e11.610 Chief Complaint lucas on feet E11.40 E79.9 E78.5 N18.30 I12.9 [...] N18.30 I12.9 E11.22 E55.9 E79.0 E21.3 E83.42 E78.5Reason for VisitChronic pain Inflammation of sacroiliac joint Osteoarthritis of spine with radiculopathy, lumbar region Trochanteric bursitis Chief Complaint Cough Per Dr. Casey J45.909 RECHECK LT HIP AND LUMBAR PAIN Amb Documentation Amb Documentation Amb Documentation N18.30 I12.9 E11.22 E55.9 E79.0 E21.3 E83.42 E78.5 RENAL 6 month follow upReason for VisitChronic pain Inflammation of sacroiliac joint Osteoarthritis of spine with radiculopathy, lumbar region Trochanteric bursitis CKD (chronic kidney disease) stage 3, GFR 30-59 ml/min Hyperlipidemia Hyperparathyroidism [id number] Hyperuricemia Hypomagnesemia Nephrolithiasis Type 2 diabetes mellitus with diabetic chronic kidney disease Chief Complaint Cough Per Dr. Casey J45.909 RECHECK LT HIP AND LUMBAR PAIN Amb Documentation Amb Documentation Amb Documentation N18.30 I12.9 E11.22 E55.9 E79.0 E21.3 E83.42 E78.5 RENAL 6 month follow up M47.26Reason for VisitChronic pain Inflammation of sacroiliac joint Osteoarthritis of spine with radiculopathy, lumbar region Trochanteric bursitis CKD (chronic kidney disease) stage 3, GFR 30-59 ml/min Hyperlipidemia Hyperparathyroidism [id number] Hyperuricemia Hypomagnesemia Nephrolithiasis Type 2 diabetes mellitus with diabetic chronic kidney disease Chief Complaint Cough Per Dr. Casey J45.909 RECHECK LT HIP AND LUMBAR PAIN Amb Documentation Amb Documentation Amb Documentation N18.30 I12.9 E11.22 E55.9 E79.0 E21.3 E83.42 E78.5 RENAL 6 month follow up M47.26 MRI RESULTSReason for VisitChronic pain Inflammation of sacroiliac joint Osteoarthritis of spine with radiculopathy, lumbar region Trochanteric bursitis CKD (chronic kidney disease) stage 3, GFR 30-59 ml/min Hyperlipidemia Hyperparathyroidism [id number] Hyperuricemia Hypomagnesemia Nephrolithiasis Type 2 diabetes mellitus with diabetic chronic kidney disease Chronic pain Lumbar muscle pain Osteoarthritis of spine with radiculopathy, lumbar region Chief Complaint Amb Documentation N18.30 I12.9 E11.22 E55.9 E79.0 E21.3 E83.42 E78.5 RENAL 6 month follow up M47.26 MRI RESULTS Amb Documentation Amb Documentation Amb Documentation RECHECK LT HIP AND LUMBAR PAINReason for VisitCKD (chronic kidney disease) stage 3, GFR 30-59 ml/min Hyperlipidemia Hyperparathyroidism [id number] Hyperuricemia Hypomagnesemia Nephrolithiasis Type 2 diabetes mellitus with diabetic chronic kidney disease Chronic pain Lumbar muscle pain Osteoarthritis of spine with radiculopathy, lumbar region Chronic pain Osteoarthritis of spine with radiculopathy, lumbar region Sacroiliitis, not elsewhere classified Chief Complaint M47.26 MRI RESULTS Amb Documentation Amb Documentation Amb Documentation RECHECK LT HIP AND LUMBAR PAIN Back Pain Back PainReason for VisitChronic pain Lumbar muscle pain Osteoarthritis of spine with radiculopathy, lumbar region Chronic pain Osteoarthritis of spine with radiculopathy, lumbar region Sacroiliitis, not elsewhere classified Chief Complaint MRI RESULTS Amb Documentation Amb Documentation Amb Documentation RECHECK LT HIP AND LUMBAR PAIN Back Pain Back Pain dinora/annual visitReason for VisitChronic pain Lumbar muscle pain Osteoarthritis of spine with radiculopathy, lumbar region Chronic pain Osteoarthritis of spine with radiculopathy, lumbar region Sacroiliitis, not elsewhere classified Obstructive apnea Chief Complaint MRI RESULTS Amb Documentation Amb Documentation Amb Documentation RECHECK LT HIP AND LUMBAR PAIN Back Pain Back Pain dinora/annual visit F/U AFTER LAURA SI JOINT INJReason for VisitChronic pain Lumbar muscle pain Osteoarthritis of spine with radiculopathy, lumbar region Chronic pain Osteoarthritis of spine with radiculopathy, lumbar region Sacroiliitis, not elsewhere classified Obstructive apnea Chronic pain Osteoarthritis of spine with radiculopathy, lumbar region Sacroiliitis, not elsewhere classified Chief Complaint F/U AFTER LAURA SI RADHA NT INJ sciatica/charcot ScreeningReason for VisitChronic pain Osteoarthritis of spine with radiculopathy, lumbar region Sacroiliitis, not elsewhere classified Chief Complaint sciatica/charcot Screening RECHECK BACK PAINReason for VisitChronic pain Osteoarthritis of spine with radiculopathy, lumbar region Sacroiliitis, not elsewhere classified Chief Complaint sciatica/charcot Screening RECHECK BACK PAIN Amb Documentation LUMBAR PAIN LUMBAR PAINReason for VisitChronic pain Osteoarthritis of spine with radiculopathy, lumbar [...] Shoulder January 26, 2025 9:45am MRI RESULTS [facility] January 26, 2025 12:50pm Reason for Visit [...] M75.101 January 23, 2025 12:43pm MRI RESULTS [facility] January 26, 2025 12:50pm Rotator cuff syndrom [...] M75.101 January 23, 2025 12:43pm MRI RESULTS [facility] January 26, 2025 12:50pm Rotator cuff syndrom [...] M75.101 January 23, 2025 12:43pm MRI RESULTS [facility] January 26, 2025 12:50pm Rotator cuff syndrom [...] M75.101 January 23, 2025 12:43pm MRI RESULTS [facility] January 26, 2025 12:50pm Rotator cuff syndrom [...] 8:03a m Sacroiliitis, not elsewhere classified Evita puga 2024 8:03am Trochanteric bursitis May 31, 2025 [...] 8:03a m Sacroiliitis, not elsewhere classified J edd 2024 8:03am Trochanteric bursitis May 31, 2025 8:0 3am Chronic pain June 21, 2025 9:03 am Sacroiliitis, not elsewhere classified J [facility] 2024 9:03am Trochanteric bursitis June 21, [...] 2025 8:03a m Sacroiliitis, not elsewhere classified [facility] 2024 8:03am Trochanteric bursitis May 31, 2025 8:0 3am Chronic pain June 21, 2025 9:03 am Sacroiliitis, not elsewhere classified J [facility] 2024 9:03am Trochanteric bursitis June 21, 2025 9: 03am Diabetic foot ulcer associat ed with type 2 diabetes mellitus, with fat laye July 12, 2025 7:36am MRSA bacteremia July 12, 2025 7: 36am Oral thrush July 12, 2025 7: 36am Additional Source Comments INFORMATION SOURCE (unrecogn ized section and content) DATE CREATED AUTHOR 07/28/2018 [facility] DATE CREATED AUTHOR AUTHOR'S ORGANIZ ATION 03/18/2022 [facility] DATE CREATED AUTHOR AUTHOR'S ORGANIZ ATION 10/17/2022 [facility] DATE CREATED AUTHOR AUTHOR'S ORGANIZ ATION 04/13/2023 [facility] DATE CREATED AUTHOR AUTHOR'S ORGANIZ ATION 05/08/2023 [facility] DATE CREATED AUTHOR AUTHOR'S ORGANIZ ATION 05/08/2023 [facility] DATE CREATED AUTHOR AUTHOR'S ORGANIZ ATION 02/23/2024 [facility] DATE CREATED AUTHOR AUTHOR'S ORGANIZ ATION 06/09/2025 [facility] DATE CREATED AUTHOR AUTHOR'S ORGANIZ ATION 07/29/2025 [facility] EPIC REASON FOR VISIT (unrecogniz ed section and content) ReasonCommentsFollow-mf8aZlhnjmgpnMhtqddcsd / ProceduresReferred By Contact Referred To ContactCardiology Diagnoses Coronary artery disease, unspecified vessel or lesion type, unspecified whether angina present, unspecified whether sycuan or transplanted heart Procedures Follow Up In Cardiology Rosalinda Torres MD [address] [facility] [address], [address] [address] Rosalinda Torres MD [address] [facility] [address], [address] [address] Referral IDStatusReasonStart DateExpiration DateVisits RequestedVisits [id number] [id number] CommentsFollow-up[address] ChengionCOLONOSCOPY REPORTUpdate Kiosk DemographicsMED REFILL, INCREASED LT HIPPAINF/U BILAT SI JOINT AND R GREATER TROCH BURSA INJ/JMBILAT SI JOINT AND RIGHT TROCH BURSA INJ/JMMAIL PPWrefill- bpk to send rxF/U FROM APPT WITH DR Mosesased pain in lower backemployee DSMEpain, back4 month Follow uppap issuesSHINGRIX #2 // [facility] TRADITIONAL PLAN THROUGH SPOUSESHINGRIX #1 // [facility] TRAD[employer]AN THROUGH SPOUSEMODERNA BIVALENT BOOSTERAFLURIA FLU VACCINECKD and HTNreview labSLEEP LABhosp recheck/ discuss disability processDocumentationFYI/ updateDisability paperworkEmployee Program F/UCKDPt no show Employee Diabetes Ed program 4/8Clinicalneuropathy, chest pressure ,SOBfyirefillsneeds fmla, FACETIME [phone] Care Teams (unrecognized sec tion and content) Team Status: Active Member Role Status Dates Charan Casey DO Primary Care Provider Active Team Status: Inactive Member Role Status Dates Charan Casey , Primary Care Provider Active Matt Dorantes ProviderActive Team Status: Inactive Member Role Status Dates Charan Casey , DO Primary Care Provider Active Teodora Patton ProviderActive Team Status: Inactive Member Role Status Dates Charan Casey , Primary Care Provider Active Ric Brenna , DPMAttending ProviderActive Team Status: Inactive Member Role Status Dates Charan Casey , DO Primary Care Provider, Other Provider Active Elpidio Whipple MDAttending ProviderActive Team Status: Inactive Member Role Status Dates Charan Casey , DO Primary Care Provider Active Mathieu Paul DOEmergency ProviderActive Team Status: Active Member Role Status Dates Charan Casey , DO Primary Care Provider Active Renée Watts RPHAttending ProviderActive Team Status: Inactive Member Role Status Dates Charan Casey , DO Primary Care Provider Active Dipak Amaro MDAttending ProviderActive Team Status: Inactive Member Role Status Dates Charan Casey , DO Primary Care Provider Active Elpidio Whipple , MDAttending ProviderActive Team Status: Inactive Member Role Status Dates Charan Casey , DO Primary Care Provider, Attending Provi fanny Active Team Status: Inactive Member Role Status Dates Charan Casey , DO Primary Care Provider Active Blas Ortiz MDAttending ProviderActive Team Status: Active Member Role Status Dates Charan Casey , DO Primary Care Provider, Attending Provi fanny Active Team Status: Inactive Member Role Status Dates Charan Casey , DO Primary Care Provider Active Thierno Chatterjee MDAttending ProviderActive Team Status: Inactive Member Role Status Dates Charan Casey , DO Primary Care Provider Active Yasmeen Treadwell , MDAttending ProviderActive Team Status: Inactive Member Role Status Dates Charan Casey , DO Primary Care Provider Active Sta rt: October 06, 2023 End: October 06, 2023Imad Mile , MDAttending ProviderActiveStart: October 06, 2023 End: October 06, 2023 [...] Start: December 30, 2023 End: December 30, 2023Team MemberRelationshipSpecialtyStart DateEnd Date Charan Casey DO [address] [place] [address] PCP - GeneralFamily Medicine02/22/24 Rosalinda Torres MD [address] [facility] [address], [address] [address] Consulting PhysicianCardiology02/22/24 Team Status: Inactive Member Role Status Dates Charan Casey DO Primary Care Provider Active Sta rt: February 04, 2024 End: February 04, 2024ThMatt Schaefer ProviderActiveStart: February 04, 2024 End: February 04, 2024 Team Status: Active Member Role Status Dates Charan Casey DO Primary Care Provider Active Sta rt: February 12, 2024 Lisa Marsh ProviderActiveStart: February 12, 2024 Team Status: Active Member Role Status Dates Charan Casey DO Primary Care Provider Active Sta rt: February 17, 2024 Cortez Alves ProviderActiveStart: February 17, 2024 Team Status: Active Member Role Status Dates Charan Casey DO Primary Care Provider Active Sta rt: February 23, 2024 Cortez Alves ProviderActiveStart: February 23, 2024 Team Status: Inactive Member Role Status Dates Charan Casey DO Primary Care Provide r, Attending Provider Active Start: February 29, 2024 End: February 29, 2024 Team Status: Inactive Member Role Status Dates Charan Casey DO Primary Care Provider Active Sta rt: March 01, 2024 End: March 01bdul Sole , MDAttending ProviderActiveStart: March 01, 2024 End: March 01, 2024 Team Status: Inactive Member Role Status Dates Charan Casey DO Primary Care Provider Active Sta rt: March 05, 2024 End: March 05harsh Ortiz MDAttending ProviderActiveStart: March 05, 2024 End: March 05, 2024 Team Status: Inactive Member Role Status Dates Charan Casey DO Primary Care Provider Active Sta rt: March 17, 2024 End: March 17omas Diana MDAttending ProviderActiveStart: March 17, 2024 End: March 17, 2024 Team Status: Active Member Role Status Dates Mendy Lopez LPN Care Manager Active Blas Ortiz , MDSpecialistActiveAlllucia Munroe , DOSpecialistActiveAcosta Castro , DPM MSSpecialistActiveHassheather Torres , MDSpecialistActiveCharan Casey , Amy Care ProviderActive Team Status: Active Member Role Status Dates Charan Casey DO Primary Care Provider Active Sta rt: March 18, 2024 Cortez Amanda ProviderActiveStart: March 18, 2024 Team Status: Active Member Role Status Dates Charan Casey DO Primary Care Provider Active Sta rt: April 19, 2024 Cortez Amanda ProviderActiveStart: April 19, 2024 Team Status: Active Member Role Status Dates Charan Casey DO Primary Care Provider Active Sta rt: May 13, 2024 Lisa Marsh ProviderActiveStart: May 13, 2024 Team Status: Inactive Member Role Status Dates Charan Casey DO Primary Care Provider Active Sta rt: May 23, 2024 End: May 23omas BRAYAN Ortizttending ProviderActiveStart: May 23, 2024 End: May 23, 2024 Team Status: Inactive Member Role Status Dates Charan Casey DO Primary Care Provider Active Sta rt: May 31, 2024 End: May 31harsh Ortiz MDAttending ProviderActiveStart: May 31, 2024 End: May 31, 2024 Team Status: Active Member Role Status Dates Charan Casey DO Primary Care Provider Active Sta rt: May 31, 2024 Blas Felter , MDAttending Provider, Other ProviderActiveStart: May 31, 2024 Team Status: Inactive Member Role Status Dates Charan Casey DO Primary Care Provider Active Sta rt: June 08, 2024 End: June 08kenneth Sepulveda , MDAttending ProviderActiveStart: June 08, 2024 End: June 08, 2024 Team Status: Inactive Member Role Status Dates Charan Casey DO Primary Care Provider Active Sta rt: June 13, 2024 End: June 13harsh Ortiz MDAttending ProviderActiveStart: June 13, 2024 End: June 13, 2024 Team Status: Active Member Role Status Dates Charan Casey DO Primary Care Provider Active Sta rt: September 02, 2024 Acosta Castro DPM MSAttending ProviderActiveStart: September 02, 2024 Team Status: Inactive Member Role Status Dates Charan Casey DO Primary Care Provider Active Sta rt: September 07, 2024 End: September 07eferral SelfAttending ProviderActiveStart: September 07, 2024 End: September 07, 2024 Team Status: Inactive Member Role Status Dates Charan Casey DO Primary Care Provider Active Sta rt: September 12, 2024 End: September 12harsh Ortiz MDAttending ProviderActiveStart: September 12, 2024 End: September 12, 2024 Team Status: Active Member Role Status Dates Charan Casey DO Primary Care Provider Active Sta rt: September 12, 2024 France Carlson RMAAtgris ProviderActiveStart: September 12, 2024 Team Status: Inactive Member Role Status Dates Charan Casey DO Primary Care Provider Active Sta rt: September 20, 2024 End: September 20harsh Ortiz MDAttending ProviderActiveStart: September 20, 2024 End: September 20, 2024 Team Status: Active Member Role Status Dates Charan Casey DO Primary Care Provider Active Sta rt: September 20, 2024 Blas Ortiz MDAttending Provider, Other ProviderActiveStart: September 20, 2024 Team Status: Inactive Member Role Status Dates Charan Casey DO Primary Care Provider Active Sta rt: October 19, 2024 End: October 19Matt Schaefer ProviderActiveStart: October 19, 2024 End: October 19, 2024Team MemberRelationshipSpecialtyStart DateEnd Date Charan Casey MD [address] [place] [phone] PCP - General05/20/23 Moni Becker MD [address] [facility] [address] [place] [address] PCP - [facility]/11/2411Team MemberRelationshipSpecialtyStart DateEnd Date Charan Casey DO [facility] - [facility]/24 Rosalinda Torres MD [address] [place] [address] [address], [address] [place] [address] Consulting PhysicianCardiology02/22/24 Team Status: Inactive Member Role Status Dates Charan Casey DO Primary Care Provider Active Sta rt: October 25, 2024 End: October 25, 2024Jesús Fermin ProviderActiveStart: October 25, 2024 End: October 25, 2024 Team Status: Inactive Member Role Status Dates Charan Casey DO Primary Care Provider Active Sta rt: 2024 End: November 01, 2024ThMatt Schaefer ProviderActiveStart: 2024 End: 2024 Team Status: Active Member Role Status Dates Charan Casey DO Primary Care Provider Active Sta rt: 2024 Matt Roe Provider, Other ProviderActiveStart: 2024 Team Status: Active Member Role Status Dates Charan Casey DO Primary Care Provider Active Sta rt: November 15, 2024 Jesús Fermin ProviderActiveStart: November 15, 2024 Team Status: Inactive Member [...] Provider Active Sta rt: December 26, 2024 Jesús Fermin ProviderActiveStart: December 26, 2024 Team Status: Inactive Member Role Status Dates Charan Casey DO Primary Care Provider Active Sta rt: December 26, 2024 End: December 26, 2024Matt Roe ProviderActiveStart: December 26, 2024 End: December 26, 2024 Team Status: Inactive Member Role Status Dates Charan Casey DO Primary Care Provider Active Sta rt: December 29, 2024 End: December 29, 2024Jesús Fermin ProviderActiveStart: December 29, 2024 End: December 29, 2024 Team Status: Active Member Role Status Dates Charan Casey DO Primary Care Provider Active Sta rt: January 03, 2025 Jesús Fermin ProviderActiveStart: January 03, 2025 Team Status: Inactive Member Role Status Josafat Casey DO Primary Care Provide r, Attending Provider Active Start: January 09, 2025 End: January 09, 2025Team MemberRelationshipSpecialtyStart DateEnd Date Charan Casey MD [address] [place] [phone] [facility]05/20/23 Team Status: Active Member Role Status Josafat Casey DO Primary Care Provider Active Sta rt: January 09, 2025 Matt Roe ProviderActiveStart: January 09, 2025 Team Status: Active Member Role Status Dates Charan Casey DO Primary Care Provider Active Sta rt: January 13, 2025 Jesús Fermin ProviderActiveStart: January 13, 2025 Team Status: Inactive Member Role Status Dates Charan Casey DO Primary Care Provider Active Sta rt: January 18, 2025 End: January 18, 2025Thharsh Ortiz MDAttending ProviderActiveStart: January 18, 2025 End: January 18, 2025 Team Status: Inactive Member Role Status Dates Charan Casey DO Primary Care Provider Active Sta rt: January 23, 2025 End: January 23, 2025Nader Curry DOAttending ProviderActiveStart: January 23, 2025 End: January 23, 2025 Team Status: Active Member Role Status Dates Charan Casey DO Primary Care Provider Active Sta rt: January 26, 2025 Nader Curry DOAttending ProviderActiveStart: January 26, 2025 Team Status: Inactive Member Role Status Dates Charan Casey DO Primary Care Provider Active Sta rt: January 26, 2025 End: January 26, 2025Nader Curry DOAttending ProviderActiveStart: January 26, 2025 End: January 26, 2025 Team Status: Active Member Role Status Dates Charan Casey DO Primary Care Provider Active Sta rt: January 31, 2025 Nader Curry DOAttending ProviderActiveStart: January 31, 2025 Team Status: Inactive Member Role Status Dates Charan Casey DO Primary Care Provider Active Sta rt: February 01, 2025 End: February 01harsh Ortiz MDAttending ProviderActiveStart: February 01, 2025 End: February 01, 2025 Team Status: Active Member Role Status Dates Charan Casey DO Primary Care Provider Active Sta rt: February 01, 2025 Blas Ortiz MDAttending ProviderActiveStart: February 01, 2025 Team Status: Inactive Member Role Status Dates Charan Casey DO Primary Care Provider Active Sta rt: February 16, 2025 End: February 16harsh Ortiz MDAttending ProviderActiveStart: February 16, 2025 End: February 16, 2025 Team Status: Inactive Member Role Status Dates Charan Casey DO Primary Care Provide r, Attending Provider Active Start: March 06, 2025 End: March 06, 2025 Team Status: Inactive Member Role Status Dates Charan Casey DO Primary Care Provider Active Sta rt: January 31, 2025 End: January 31, 2025Nader Curry DOAttending ProviderActiveStart: January 31, 2025 End: January 31, 2025Team MemberRelationshipSpecialtyStart DateEnd Date Charan Casey DO [address] [place] [phone] [facility]05/20/23 Team Status: Inactive Member Role Status Josafat Casey DO Primary Care Provider Active Sta rt: March 06, 2025 End: March 06monica Casey DOAttending ProviderActiveStart: March 06, 2025 End: March 06, 2025 Team Status: Inactive Member Role Status Josafat Casey DO Primary Care Provider Active Sta rt: May 31, 2025 End: May 31, 2025Thharsh Ortiz MDAttending ProviderActiveStart: May 31, 2025 End: May 31, 2025 Team Status: Inactive Member Role Status Josafat Casey DO Primary Care Provider Active Sta rt: June 05, 2025 End: June 05, 2025Acosta Castro DPM MSAttending ProviderActiveStart: June 05, 2025 End: June 05, 2025 Team Status: Inactive Member Role Status Josafat Casey DO Primary Care Provider Active Sta rt: June 14, 2025 End: June 14, 2025Thharsh Ortiz MDAttending ProviderActiveStart: June 14, 2025 End: June 14, 2025 Team Status: Active Member Role Status Josafat Casey DO Primary Care Provider Active Sta rt: June 14, 2025 Blas Ortiz MDAttending ProviderActiveStart: June 14, 2025 Team Status: Inactive Member Role Status Josafat Casey DO Primary Care Provider Active Sta rt: June 21, 2025 End: June 21harsh Ortiz MDAttending ProviderActiveStart: June 21, 2025 End: June 21, 2025 Team Status: Active Member Role Status Josafat Casey DO Primary Care Provider Active Sta rt: June 28, 2025 Gustavo Cuevas DOAttending ProviderActiveStart: June 28, 2025 Team Status: Active Member Role Status Josafat Casey DO Primary Care Provider Active Sta rt: June 29, 2025 Matt Jackson ProviderActiveStart: June 29, 2025 Team Status: Active Member Role Status Josafat Casey DO Primary Care Provider Active Sta rt: June 30, 2025 Matt Jackson ProviderActiveStart: June 30, 2025 Team Status: Inactive Member Role Status Josafat Casey DO Primary Care Provider Active Sta rt: July 12, 2025 End: July 12monica Casey DOAttroman ProviderActiveStart: July 12, 2025 End: July 12, 2025Team MemberRelationshipSpecialtyStart DateEnd Date Charan Casey DO [address] [place] [phone] PCP - General05/20/23Team MemberRelationshipSpecialtyStart DateEnd Date Charan Casey DO [facility] [place] [address] PCP - General05/20/23 Goals (unrecognized section and content) Goals may [...] BE BASED ON THE PRIMARY CLINICAL RECORDS. [facility] [employer] provides no warranty or guarantee of the accuracy or completeness of information in this document.
== END 2025-09-20 10:41 | disposition home or self-care (01) ==
LOC: WC 10:40
PROVIDERS: PCP Family Medicine; Visit Provider Physician Assistant
DX: E11.621 Type 2 diabetes mellitus with foot ulcer (principal); L97.423 Non-pressure chronic ulcer of left heel and midfoot with necrosis of muscle
CPT/HCPCS: G0463

== ENCOUNTER 2025-09-28 13:05 | Outpatient (OUT) | payer MEDICARE, SELFPAY ==
--- OUTSIDE RECORDS SUMMARY | 2025-09-28 13:08 | XMS_ITS | Clinical Summary ---
Author Organization [facility] Address [address] [place] [address] Phone Care Team Providers Care Scientific Publications Editor Name Role Phone Charan Delgadillo DO Primary Care Provider [phone] Rosalinda Cordova MD Unavailable [phone] Allergies Active AllergyReactionsCriticalityNoted DateCommentsErythromycin Base Nausea/ckilnrgg23/05/2024LevofloxacinNausea/aycfbzeeMxta49/25/2024 Head ache Medications MedicationSigDispense QuantityRefillsLast FilledStart DateEnd DateStatus allopurinol (Zyloprim) 100 mg tablet Take 1 tablet (100 mg) by mouth once daily.02/07/2022ctive ascorbic acid (Vitamin C) 1,000 mg tablet Take 1 tablet (1,000 mg) by mouth once daily.Active aspirin 81 mg EC tablet Take 1 tablet (81 mg) by mouth once daily.Active ergocalciferol (Vitamin D-2) 1.25 MG (83014 UT) capsule Take 1 capsule (50,000 Units) [...] 10 mg tablet Indications:Atherosclerotic heart disease of [place] coronary artery without angina pectorisTake 1 tablet (10 mg) by mouth 3 (three) times a week. 36 tablet 12:43 PM EDT1415Active Active Problems ProblemNoted DateDiagnosed DateClass 2 obesity with body mass index (BMI) of 37.0 to 37.9 in adult02/22/2024AD (coronary artery disease)12/04/2023Elevated coronary artery calcium score12/04/2023iabetes xjhaxwbv06/05/2024Essential lrkgvavhkhtf42/05/6600Wwnihndsmahmbc67/05/2024Obstructive sleep apnea syndrome 12/04/2023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12/04/2023 Immunizations ImmunizationAdministration DatesNext DueInfluenza, seasonal, injectable 10/16/2022Moderna SARS-CoV-2 Lgmusxewcyx15/17/2022neumococcal conjugate vaccine, 13-valent (PREVNAR 13)12/02/2016Pneumococcal polysaccharide vaccine, 23-valent, age 2 years and older (PNEUMOVAX 23)11/30/2016,10/15/2016 Family History Medical HistoryRelationNameCommentsCABGFatherRelationNameStatusCommentsFather Social History Tobacco UseTypesPacks/DayYears UsedDateSmoking Tobacco: NeverSmokeless Tobacco: Never Tobacco Cessation:Counseling Given: Not Answered Alcohol UseStandard Drinks/WeekCommentsNever0 (1 standard drink = 0.6 oz pure alcohol)CommentsUnknownSex and Gender InformationValueDate RecordedSex Assigned at BirthNot on fileLegal RtuEkzqqh43/26/2022 10:20 AM ESTGender IdentityNot on fileSexual OrientationNot on file Last Filed Vital Signs Vital SignReadingTime TakenCommentsBlood Tlhxoxbu818/80008/25/2024 8:35 AM EDT Cwbkq1471/26/2024 8:35 AM EDTTemperature--Respiratory Rate--Oxygen Saturation-- Inhaled Oxygen Concentration--Yicdcu932 kg (241 lb)08/25/2024 8:35 AM EDTHeight 170.2 cm (5' 7 )08/25/2024 8:35 AM EDTBody Mass Index37.75008/25/2024 8:35 AM EDT Plan of Treatment DateTypeDepartmentCare Team (Latest Contact Info)Fzegeqwlyxg63/05/2025 2:30 PM ESTOffice Visit [facility] [address] [address] Rosalinda Cordova MD [address] [facility] 2, [facility] [address] [place] [address] Health MaintenanceDue DateLast DoneCommentsCT Xkpxhxlzdgpm1960Diabetes: Hemoglobin A1C1960Diabetes: Urine Protein Tegzavolx1960FIT-DNA (Cologuard)1960FIT1960HIV Pbmnuswcp1960Lipid Panel1960 Medicare Annual Wellness Visit (AWV)1960 8675Eksbszootopwe1960MMR Vaccines (1 of 1 - Standard series)1Diabetes: Retinopathy Screening 1970Hepatitis C Yfgphzjnz97/03/1978Cervical Cancer Fyzaefltv80/03/1981 HPV/Jtmexq3811/01/1981Pap Smear11/01/19811278Jupewyaom68/03/2000RSV High Risk: (Elderly (60+) or Population) (1 - Risk 50-74 years 1-dose series) 2010Pneumococcal Vaccine (3 of 3 - PCV20 or PCV21)/01/2017, 11/30/2016, 10/15/2016DTaP/Tdap/Td Vaccines (2 - Td or Tdap) Influenza Vaccine (#1)/, 08/30/2021, 08/30/2019, Additional history existsCOVID-19 Vaccine ( season)/, 10/16/2022, 09/25/2021, Additional history hydbwsAnrpcjqdhvt59/07/203311/05/2023 Colorectal Cancer Pqjkmvvmd17/07/2033Zoster QfqvdngtMnvbxdpvl21/28/2023, 10/28/2022HIB VaccinesAged OutNo longer eligible based on [...] Delgadillo DO PCP - GeneralFamily Medicine02/22/24 Rosalinda Cordova MD [address] [facility] 2, [facility] [address] [place] [address] Consulting PhysicianCardiology02/22/24
--- OUTSIDE RECORDS SUMMARY | 2025-09-28 13:08 | XMS_ITS | Encounter Summary ---
Author Organization [facility] Address [address] [facility] [place] [address] Care Team Providers Care Rug Scratcher Name Role Phone BrysonCharan clemente Dani BASSETT Primary Care Provider Encounter Details DateTypeDepartmentCare Team (Latest Contact Info)Xhoewgzqhxz04/27/2025bstract [facility] [address] [facility] [address] [place] [address] Luisito Seymour DPM [address] [facility] [address] [place] [address] Social History Tobacco UseTypesPacks/DayYears UsedDateSmoking Tobacco: NeverSmokeless Tobacco: NeverAlcohol UseStandard Drinks/WeekCommentsNever0 (1 standard drink = 0.6 oz pure alcohol)caffeine: 1-2 cups per day [id number] Health LiteracyAnswerDate RecordedHow often do you need [...] relatives?Once a week07/26/2025How often do you attend cheondoism or latter day services?More than 4 times per year07/26/2025Do you belong to any clubs or organizations such as cheondoism groups, unions, [employer] or athletic groups, or school groups?No07/26/2025How often [...] at all 07/26/2025PHQ-2AnswerDate RecordedPatient Health Questionnaire-2 Score0 05/15/2025[facility] [place] of Occupational Health - Occupational Stress QuestionnaireAnswerDate RecordedDo you feel stress - tense, restless, nervous, or anxious, or unable to sleep at night because yourmind is troubled all the time - these days?To some retrlu6102/08/2024Exercise Vital SignAnswerDate Recorded On average, how many days per week do you engage in moderate to strenuous exercise (like a brisk walk)?Patient bkihfjag59/11/2024On average, how many minutes do you engage in exercise at this level?Patient mquielfc93/11/2024Hunger Vital SignAnswerDate RecordedWithin the past 12 months, [...] steady place to sleep or slept in [facility] (including now)?No 02/08/2024Housing Stability Vital SignAnswerDate RecordedIn the last 12 months, was there a time when you were not able to pay the mortgage or rent on time?No 07/26/2025In the past 12 months, how many times have you moved where you were living?t any time in the past 12 months, were you homeless or living in a detention (including now)?No07/26/2025CommentsUnknownSex and Gender InformationValueDate RecordedSex Assigned at DefsxZfsrbs84/21/2023 8:32 AM EDT Legal EhcGlmaes85/15/2023 7:19 PM EDTGender GucqifgwNpiwfz72/21/2023 8:32 AM EDT Sexual OrientationNot on filedocumented as of this encounter Plan of Treatment DateTypeDepartmentCare Team (Latest Contact Info)Nwyexgpcniv09/25/2025 10:30 AM ESTOffice Visit [facility] [address] [place] [address] [place] [address] Shaina Figueroa, DO [address] [place] [address] documented as of this encounter Visit Diagnoses Not on filedocumented in this encounter Care Teams Team MemberRelationshipSpecialtyStart DateEnd Date Charan Delgadillo DO [address] [place] [phone] PCP - General05/20/23documented as of this encounter
--- OUTSIDE RECORDS SUMMARY | 2025-09-28 13:08 | XMS_ITS | Encounter Summary ---
Author Organization [facility] Address [address] [place] [address] Care Team Providers Care Equipment Operation Instructor Name Role Phone BrysonCharan clemente Dani BASSETT Primary Care Provider [phone] Encounter Details DateTypeDepartmentCare Team (Latest Contact Info)Kuytilbbsyh40/27/2025bstract [facility] [address] [facility] [address] [place] [address] Luisito Seymour DPM [address] [facility] [address] [place] [address] Social History Tobacco UseTypesPacks/DayYears UsedDateSmoking Tobacco: NeverSmokeless Tobacco: NeverAlcohol UseStandard Drinks/WeekCommentsNever0 (1 standard drink = 0.6 oz pure alcohol)caffeine: 1-2 cups per day iqlhprW1512 Health LiteracyAnswerDate RecordedHow often do you need [...] relatives?Once a week07/26/2025How often do you attend yarsani or confucianist services?More than 4 times per year07/26/2025Do you belong to any clubs or organizations such as yarsani groups, unions, fraGlazeon or athletic groups, or school groups?No07/26/2025How often [...] at all 07/26/2025PHQ-2AnswerDate RecordedPatient Health Questionnaire-2 Score0 05/15/2025[facility] [place] of Occupational Health - Occupational Stress QuestionnaireAnswerDate RecordedDo you feel stress - tense, restless, nervous, or anxious, or unable to sleep at night because yourmind is troubled all the time - these days?To some bxezby7902/08/2024Exercise Vital SignAnswerDate Recorded On average, how many days per week do you engage in moderate to strenuous exercise (like a brisk walk)?Patient ihxctiim03/11/2024On average, how many minutes do you engage in exercise at this level?Patient /11/2024Hunger Vital SignAnswerDate RecordedWithin the past 12 months, [...] steady place to sleep or slept in [facility] (including now)?No 02/08/2024Housing Stability Vital SignAnswerDate RecordedIn the last 12 months, was there a time when you were not able to pay the mortgage or rent on time?No 07/26/2025In the past 12 months, how many times have you moved where you were living?t any time in the past 12 months, were you homeless or living in a halfway (including now)?No07/26/2025CommentsUnknownSex and Gender InformationValueDate RecordedSex Assigned at MzfoaEbciys10/21/2023 8:32 AM EDT Legal LoqUplsvl68/15/2023 7:19 PM EDTGender QohfimnmTithjl82/21/2023 8:32 AM EDT Sexual OrientationNot on filedocumented as of this encounter Plan of Treatment DateTypeDepartmentCare Team (Latest Contact Info)Ngvnctwqvlw32/25/2025 10:30 AM ESTOffice Visit [facility] [address] [place] [address] Shaina Figueroa, DO [address] [place] [address] documented as of this encounter Visit Diagnoses Not on filedocumented in this encounter Care Teams Team MemberRelationshipSpecialtyStart DateEnd Date Charan Delgadillo DO [address] [place] [phone] PCP - General05/20/23documented as of this encounter
--- OUTSIDE RECORDS SUMMARY | 2025-09-28 13:08 | XMS_ITS | Clinical Summary ---
Author Organization [facility] Address [address] [facility] [place] [address] Care Team Providers Care Alignment Technician Name Role Phone Brysonbryn Charan Dani BASSETT Primary Care Provider [phone] Allergies Active AllergyReactionsCriticalityNoted DateCommentsErythromycinUnknown 05/15/2025Erythromycin BaseNausea Only05/19/2023LevofloxacinGI [...] MOUTH ONCE DAILY ON mondays, wednesdays, AND earrmvd8511/12/2022 Active pregabalin (Lyrica) 150 MG capsule Take 150 mg by mouth at bedtimeActive Continuous Blood Gluc Subway Train Operator (Dexcom G7 Subway Train Operator) device USE FMTQHZMF12/17/2023ctive Continuous Blood Gluc Sensor (Dexcom G7 Sensor) [...] macular edema, with long-term current use of tkpjzjb1504/21/2024Type 2 diabetes mellitus with peripheral fgmdjtcjpy74/13/2023 Assessment & Plan (07/27/2025 9:29 AM EDT): [...] 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 nzcoekaclsk94/13/2023 Assessment & Plan (02/11/2024 9:19 PM EDT): [...] Long-term insulin use10/12/2023Spondylolisthesis at L3-L4 level10/12/2023S/P laparoscopic xlyosylbxzvjmkw04/13/2023Other hammer toe(s) (acquired), left foot 10/12/2023lass 2 severe obesity with serious comorbidity and body mass index (BMI) of 35.0 to 35.9 in adult10/12/2023arpal tunnel syndrome of right wrist 01/27/2020Chronic foot ulcer04/13/2018 Encounters DateTypeDepartmentCare TwooRbkgjpswekq90/27/2025Abstract [facility] [address] [place] [address] Luisito Seymour, DPM 09/25/2025bstract [facility] [address] [place] [address] Luisito Seymour, DPM 08/15/2025Refill [facility] [address] [place] [address] Monica Tee LPN Type 2 diabetes mellitus with peripheral neuropathy (HCC)07/27/2025 8:15 AM EDT Office Visit [facility] [address] [place] [address] Shaina Figueroa, DO Type 2 diabetes mellitus [...] index (BMI) of35.0 to 35.9 in adult ([facility]-HCC)07/27/2025amboo flowsheet [facility] [address] [place] [address] Shaina Figueroa DO 07/27/20252067Zjxjjn51/27/4051Wcmijs01/25/2025Refill [facility] [address] [facility] [address] [place] [address] Kimberley Finn LPN Type 2 diabetes mellitus with peripheral neuropathy (HCC)07/18/2025Telephone [facility] [address] [facility] [address] [place] [address] Nancy Henriquez MA [facility]from Last 3 Months Immunizations ImmunizationAdministration DatesNext DueInfluenza, High Dose Seasonal, Preservative Free10/16/2022Influenza, injectable, quadrivalent, preservative free08/30/2019Influenza, seasonal, kgqfvbibdg36/01/2019,08/30/2018Influenza, seasonal, injectable, preservative free08/30/2018,12/02/2016Influenza, seasonal, intradermal, preservative free08/30/2021Moderna SARS-CoV-2 Booster Vaccination 09/25/2021Moderna SARS-CoV-2 Agtqluqvkfk69/28/2021neumococcal Conjugate PCV 13 12/02/2016Pneumococcal Polysaccharide XZKP1257/11/2016,10/15/2016Zoster, Mlfcpmoaafv71/28/2023,10/28/2022 Family History Medical HistoryRelationNameCommentsDiabetesBrotherNo Known ProblemsDaughter Atrial fibrillationFatherCoronary artery diseaseFatherDementiaFatherHeart diseaseFatherHypertensionFatherParkinsonismFatherSleep apneaFatherAsthmaMother HypertensionMotherSleep apneaMotherDiabetesPaternal GrandfatherDiabetesPaternal GrandmotherDiabetesSiblingHypertensionSonRelationNameStatusCommentsBrotherAlive2 ChildAlive2 sons 1 daughterDaughterAliveFatherDeceasedMotherAlivePaternal GrandfatherDeceasedPaternal GrandmotherDeceasedSiblingAlive2 brothersSonAlive2 Social History Tobacco UseTypesPacks/DayYears UsedDateSmoking Tobacco: NeverSmokeless Tobacco: Never Tobacco Cessation:Counseling Given: Not Answered Alcohol UseStandard Drinks/WeekCommentsNever0 (1 standard drink = 0.6 oz pure alcohol)caffeine: 1-2 cups per day [id number] Health LiteracyAnswerDate RecordedHow often do you need [...] relatives?Once a week07/26/2025How often do you attend scientologist or yazidism services?More than 4 times per year07/26/2025Do you belong to any clubs or organizations such as scientologist groups, unions, fraIsowalk or athletic groups, or school groups?No07/26/2025How often [...] at all 07/26/2025PHQ-2AnswerDate RecordedPatient Health Questionnaire-2 Score0 05/15/2025[facility] [place] of Occupational Health - Occupational Stress QuestionnaireAnswerDate RecordedDo you feel stress - tense, restless, nervous, or anxious, or unable to sleep at night because yourmind is troubled all the time - these days?To some clmkzp5902/08/2024Exercise Vital SignAnswerDate Recorded On average, how many days per week do you engage in moderate to strenuous exercise (like a brisk walk)?Patient ihbsdnmg97/11/2024On average, how many minutes do you engage [...] steady place to sleep or slept in [place] (including now)?No 02/08/2024Housing Stability Vital SignAnswerDate RecordedIn the last 12 months, was there a time when you were not able to pay the mortgage or rent on time?No 07/26/2025In the past 12 months, how many times have you moved where you were living?t any time in the past 12 months, were you homeless or living in a usp (including now)?No07/26/2025CommentsUnknownSex and Gender InformationValueDate RecordedSex Assigned at GcvmcTltwps50/21/2023 8:32 AM EDT Legal FgtSwzfnu81/15/2023 7:19 PM EDTGender PebzrspfGaayzj10/21/2023 8:32 AM EDT Sexual OrientationNot on file Last Filed Vital Signs Vital SignReadingTime TakenCommentsBlood Kfqommau668/6208 8:13 AM EDT Nazvd201607/27/2025 8:13 AM DPKFytoggtazvw53.4 ??C (97.5 ??F)07/27/2025 8:13 AM EDTRespiratory Rate--Oxygen Yzyjkamrde09%07/27/2025 8:13 AM EDTInhaled Oxygen Concentration--Syqkjp180 kg (222 lb 3.2 oz)05/15/2025 10:29 AM ETWRdfjxb535.6 cm (5' 6 )07/27/2025 8:13 AM EDTBody Mass Index35.8605/15/2025 10:29 AM EDT Plan of Treatment DateTypeDepartmentCare Team (Latest Contact Info)Idudbftpbcj24/25/2025 10:30 AM ESTOffice Visit [facility] [address] [facility] [address] [place] [address] Shaina Figueroa, [address] [facility] [address] [place], [place] [address] Health MaintenanceDue DateLast DoneCommentsCT Ratrbljocozp1960Colonoscopy 1960Colorectal Cancer Clpdvgrtt1960FIT-DNA9204SEZ40 1960 FOBT1960 2341Dabhsfyxkceux1960Pap Smear1981Cervical Cancer Jmuzpxrxd17/03/1990HPV/Bsnpjj4011/01/19902692Mrosyyice44/03/2000Influenza Vaccine (#1) 511/, 08/30/2021, 08/30/2019, Additional history exists Insurance Care Teams Team MemberRelationshipSpecialtyStart DateEnd Date Charan Delgadillo DO [address] [place] [address] PCP - General05/20/23
--- OUTSIDE RECORDS SUMMARY | 2025-09-28 13:27 | XMS_ITS | CCD ---
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 Name Role Phone Charan Casey Unavailable Unavailable Unavailable Blas Ortiz Unavailable Charan Casey Unavailable Thierno Chatterjee Unavailable Renée Watts Unavailable Elpidio Whipple Unavailable Federico Sepulveda Unavailable DO Charan Casey Primary Care Provider DO Mathieu Paul Emergency Provider DO Charan Casey Other Provider MD Elpidio Whipple Attending Provider [phone] ROSS Ceja Attending Provider MD Dipak Amaro Attending Provider TIMOTEO Watts Attending Provider DO Charan Casey Primary Care Provider Eliud Rod Unavailable DO Charan Casey Primary Care Provider TIMOTEO Watts Attending Provider [phone] DO Charan Casey Primary Care Provider TIMOTEO Watts Attending Provider MD Federico Sepulveda Attending Provider [phone] MD Elpidio Whipple Attending Provider ACOSTA CASTRO [...] Scott Consulting Unavailable WESTBRODERICK V Consulting Unavailable [facility] [place], [facility] HAIDER Primary Care Unavailable HIGHLANDER, ACOSTA [...] DO Charan Primary Care Provider MD Blas Oritz Attending Provider [phone] Kuns, DO Charan Primary Care Provider Kuns, DO Charan Attending Provider MD Theirno Chatterjee Attending Provider Yasmeen Treadwell Unavailable Kuns, DO Charan Primary Care Provider [phone] MD Blas Ortiz Attending Provider MD Elpidio Whipple Attending Provider Kuns, DO Charan Primary Care Provider MD Thierno Chatterjee Attending Provider MD Blas Ortiz Attending Provider MD Elpidio Whipple Attending Provider MD Yasmeen Treadwell Attending Provider [phone] Blas Bellamy Unavailable Kuns, DO Charan Primary Care Provider [phone] MD Blas Ortiz Attending Provider Kuns, DO Charan Attending Provider Kuns, DO Charan Primary Care Provider Kuns, DO Charan Primary Care Provider Kuns Charna BASSETT Primary Care Provider Rosalinda Torres MD Unavailable ROSALINDA TORRES Attending Unavailable CHARAN CASEY MINOR Primary Care Unavailable Kuns, DO Charan Primary Care Provider Kuns, DO Charan Attending Provider MD Blas Ortiz Attending Provider Kuns, DO Charan Primary Care Provider [phone] Kuns, DO Charan Attending Provider Kuns, DO Charan Primary Care Provider Kuns, DO Charan Primary Care Provider MD Blas Ortiz Attending Provider Kuns, DO Charan Primary Care Provider ROSS Castro Attending Provider Self, Referral Attending Provider Unavailable MD Blas Ortiz Attending Provider Kuns DO, Charan Primary Care Provider Acosta Castro DPM Attending Provider [phone] Self, Referral Attending Provider Unavailable Blas Ortiz MD Attending Provider Charan Casey MD Primary Care Provider [phone] Moni Becker MD Unavailable [phone] Kunbryn BASSETT, Charan P Primary Care Provider [phone] Kuns DO, Charan Primary Care Provider Nader Curry DO Attending Provider KunCharan clemente DO Attending Provider Kuns DO, Charan Primary Care Provider [phone] Blas Ortiz MD Attending Provider Kuns Charan BASSETT Primary Care Provider Nader Curry DO Attending Provider Nader Curry DO Attending Provider [phone] Jacinto BASSETT, Charan Primary Care Provider [phone] Charan Casey DO Attending Provider Nader Curry DO Attending Provider Jacinto DO, Charan Primary Care Provider Jacinto DO, Charan P Primary Care Provider Kuns DO, Charan Primary Care Provider Brysons DO, Charan Attending Provider Blas Ortiz MD Attending Provider [phone] Jacinto DO, Charan [facility] Acosta HAWKINS Attending Provider [phone] Blas Ortiz Admitting Unavailable Blas Ortiz Attending [...] Care Unavailable Gustavo Cuevas DO Attending Provider [phone] Karla Lyons MD Attending Provider [phone] Charan Casey DO Attending Provider [phone] SHAINA MUNROE Attending Unavailable SHAINA MUNROE Attending Unavailable SHAINA MUNROE Attending Unavailable CHARAN CASEY Referring Unavailable SHAINA MUNROE Attending Unavailable Allergies Allergy ClassificationReported Allergen(s)Allergy TypeDate of OnsetReaction(s) FacilityLincosamides (antibiotic) (1 source)ClindamycinDrug Lsiumnm15-00-9540iocrProMedica Flower HospitalQuinolones (antibiotic) (1 source)levoFLOXacinDrug Aqluarn62-75-9001zolqkwrtmwijZarvfhiqb [facility] (20 sources)Erythromycin; Translations: [Erythromycin Base TABS]Drug Allergy 38-59-7135iynkew, Nausea/vomiting, UnknownFulton County Health Center (20 sources)ClindamycinDrug Mjzngdn80-38-4715npqb med - rashOhio State University [facility] (20 sources)arzithomycinPropensity to adverse rubjbclsf01-72-0555sjtffcnSamaritan North Health Center (20 sources)erythromycin base; Translations: [Erythromycin Base]Propensity to adverse fqackmqod79-27-0888Mctryv OnlyOhio State University [facility] (2 sources)levoFLOXacinDrug AllergyhypoglycemiaNomineral area [facility] ImpressPages Other (20 sources)levoFLOXacin; Translations: [LEVOFLOXACIN]Drug Lhktvtw24-58-1119 Nausea/vomiting, GI intoleranceOhio State University We[facility] Center Medications Current Medications MedicationDrug Class(es)DatesSig (Normalized)Sig (Original)allopurinol 100 mg oral tablet (20 sources)Xanthine Oxidase InhibitorStart: 06-15-2020 End: 59-19-1040rnyi 1 tablet by mouth in the morningallopurinol [...] sources)Platelet Aggregation Inhibitor, Nonsteroidal Anti-inflammatory Drug Start: 49-24-4611puag 1 tablet by mouth once daily in [...] Sensor (Dexcom G7 Sensor) device (19 sources)Start: 78-49-9099Vkfrd-Glucose Sensor (Dexcom G7 Sensor) device Active 0 .Route September 11, 2024 11:00pm As directedStart: 93-77-0743Ymljp- Glucose Sensor (Dexcom G7 Sensor) device Active [...] 0.05 mg oral capsule (20 sources)Vitamin DStart: 92-83-7122kwns 1 capsule by mouth once daily Cholecalciferol (Vitamin D3) 50 mcg (2,000 unit) capsule Active 50 MCG PO Daily March 01, 2024 12:00am Complies with drug therapyStart: 86-14-7222RYO Vitamin D Maximum Strength 50 MCG (2000 UT) tablet Take by mouth Daily. 12/30/2022 Active clotrimazole 10 mg oral lozenge (1 source)Azole AntifungalStart: 09-87-8833Vefqzqohorfi 10 mg deshawn Active 10 MG MUCOUS MEM Five times daily July 12, 2025 12:00am Complies with drug therapyCoenzyme Q10 (CO Q 10 PO) (5 sources)Coenzyme Q10 (CO Q 10 PO) Take by mouth ActiveContinuous Blood Gluc Legal Administrator (Dexcom G7 Legal Administrator) device (8 sources)Start: 09-44-5051Eqoyksfntz Blood Gluc Legal Administrator (Dexcom G7 Legal Administrator) device USE DIRECTED 07/16/2023 ActiveContinuous Blood Gluc Sensor (Dexcom G7 Sensor) misc (8 sources)Start: 61-74-3043Lawvdpdylp Blood Gluc Sensor (Dexcom G7 Sensor) misc USE DIRECTED, CHANGE EVERY 10 DAYS 08/18/2023 ActiveCoQ-10 (15 sources)CoQ-10 ActiveCoQ-10 100 MG (6 sources)CoQ-10 100 MG as directed Orally ONCE A DAY ActiveDexcom G6 Legal Administrator - (20 sources)Start: 23-73-8843Hfwpvx G6 Legal Administrator - use as directed to monitor dexcom sensor Feb, ActiveStart: 57-78-5345Amovqv G6 Sensor - (20 sources)Start: 00-97-9594Atnpaz G6 Sensor - as directed change q 10 days for 90 days Feb, ActiveStart: 13-01-2153Bwfkht G6 Sensor - as directed change q 10 days Feb, ActiveStart: 18-72-4957Tgjdey G6 Transmitter - (20 sources)Start: 80-07-7735Inwqng G6 Transmitter - as directed change Q 3 months Feb, ActiveStart: 80-61-5527Yahiuw G7 Legal Administrator - (20 sources)Start: 41-72-5477Aenhdj G7 Legal Administrator - as directed as directed as directed Jun, ActiveDexcom G7 Sensor - (20 sources)Start: 66-37-1892Bhwrpp G7 Sensor - as directed as directed change every 10 days for 90 days Jun, ActiveStart: 52-60-7358Vhtdxg G7 Sensor - as directed as directed change every 10 days for 30 days Jun, Active diclofenac sodium 20 mg/ml topical solution (20 sources)Nonsteroidal Anti-inflammatory DrugStart: 32-94-1957Rijfculg 2 % 2 pumps to affected area Transdermal Twice a day Aug, ActiveStart: 69-86-6564klehpntirizaqi 1.25 mg oral capsule (20 sources)Provitamin D2 CompoundStart: 48-13-2435evzb 1 capsule by mouth once dailyergocalciferol (Vitamin D-2) 1.25 MG (03649 UT) capsule Take 1 capsule (50,000 Units) by mouth oncedaily. 08/29/2021 ActiveStart: 30-12-4784katl 1 tablet by mouth two times weeklyVitamin D (Ergocalciferol) 1.25 MG (93178 UT) Oral Capsule Take 1 tablet twice weekly Quantity: 0 Refills: 0 Ordered: 14-Jan-2022 DO Start : 29-Aug-2021 ActiveStart: 06-15-2020 End: 87-40-5636udvj 1 capsule by mouth every weekErgocalciferol (Vitamin D2) 1,250 mcg (50,000 unit) Capsule Discontinued 1250 MCG PO every week June 15, 2020 12:00am March 01, 2024 9:34am thursdaytake 1 capsule by mouth every week Ergocalciferol 59051 UNIT 1 capsule Orally Q week Activetake 1 capsule by mouth every weekErgocalciferol 69834 UNIT 1 capsule Orally Q week ActiveEster-C - (20 sources)Brooke-C - as directed Orally Activefluticasone propionate 0.05 mg/actuat metered dose nasal spray (10 sources)CorticosteroidStart: 18-14-0803dhpx 1 spray(s) nasal route twice dailyFluticasone Propionate 50 MCG/ACT 1 spray in each nostril Nasally Twice a day for 14 days Sep, ActiveStart: 61-40-2859mzmn 1 spray(s) nasal route twice dailyFluticasone Propionate 50 MCG/ACT 1 spray in each nostril Nasally Twice a day for 14 days Sep, Active3 ml insulin degludec 200 unt/ml pen injector (17 sources)Insulin AnalogStart: 09-66-2947ymmwnzr degludec (Tresiba FlexTouch) 200 UNIT/ML injection Indications: Type 2 diabetes mellitus with peripheral neuropathy (HCC) Inject 30 Units under the skin Daily 9 mL 3 07/27/2025 Active Start: 65-55-4845olocsct degludec (Tresiba FlexTouch) 200 UNIT/ML injection Indications: Type 2 diabetes mellitus with peripheral neuropathy (HCC) Inject 30 Units under the skin Daily 9 mL 3 07/27/2025 ActiveStart: 02-16-2025 End: 72-74-8586Akvjtrj Degludec 200 unit/mL (3 mL) insulin pen Discontinued UNIT SUBCUT February 16, 2025 12:00am March 06, 2025 8:16amStart: 02-14-2025 End: 89-21-0880kojpspk degludec (Tresiba FlexTouch) 200 UNIT/ML injection Indications: Type 2 diabetes mellitus with peripheral neuropathy (HCC) Inject 60 Units under the skin Daily 9 mL 3 02/14/2025 07/27/2025 Discontinued (Dose adjustment)Insulin Degludec 200 unit/mL (3 mL) insulin pen (5 sources)Start: 76-98-0130Jpmknxi Degludec 200 unit/mL (3 mL) insulin pen Active 60 UNIT SUBCUT Daily March 06, 2025 8:13amStart: 02-16-2025 End: 55-29-0928Gwslvmb Degludec 200 unit/mL (3 mL) insulin pen Discontinued UNIT SUBCUT February 16, 2025 12:00am March 06, 2025 8:16amStart: 73-03-2469Mlckmrq Degludec 200 unit/mL (3 mL) insulin pen Active UNIT SUBCUT February 16, 2025 12:00am3 ml insulin lispro 100 unt/ml pen injector (20 sources)Insulin AnalogStart: 02-16-2025 End: 38-19-2924dxlstxo lispro (HumaLOG KWIKPEN) 100 UNIT/ML injection Indications: Type 2 diabetes mellitus with peripheral neuropathy (HCC) 10 units breakfast, 14 units dinner plus correction 1:30 > 150 mg/dl (max daily 50 units) 15 mL 3 05/15/2025 ActiveStart: 58-90-3894oiejcpt lispro (HumaLOG) 100 UNIT/ML injection Indications: Type 2 diabetes mellitus with peripheral neuropathy (CMS/HCC) 5 units breakfast and dinner 15 mL 3 06/21/2024 ActiveStart: 57-44-2101oksqch 100 [IU] by subcutaneous injection at bedtimeInsulin Lispro (1 Unit Dial) 100 UNIT/ML Subcutaneous Solution Pen-injector ADMINISTER 5-6 UNITS SUBCUTANEOUSLY IN THE MORNING AND at bedtime Quantity: 12 Refills: 0 Ordered: 06-Apr-2023 DO Start : 06-Apr-2023 ActiveStart: 03-25-2022 End: 77-68-4783wmzvdq 100 [IU] by subcutaneous injection once daily at bedtime as neededInsulin Lispro (Humalog Kwikpen Insulin) 100 unit/mL insulin pen Discontinued 5 - 6 UNIT SUBCUT Twice daily February 23, 2024 5:04pm February 16, 2025 9:40am once a day in the morning and PRN QHSStart: 07-25-2020 End: 93-48-3871zekieh 5 [IU] by subcutaneous injection once daily at breakfast Insulin Lispro (Humalog Kwikpen Insulin) 100 unit/mL Insulin Pen Discontinued 5 UNIT SUBCUT Daily with breakfast July 25, 2020 12:00am February 23, 2024 5:05pmStart: 06-15-2019 End: 00-31-9340ukqtjs 5 [IU] by subcutaneous injection once daily [...] Insulin) 100 unit/mL insulin pen (20 sources)Start: 27-73-2339Optkreo Lispro (Humalog Kwikpen Insulin) 100 unit/mL insulin pen Active 8 - 12 UNIT SUBCUT Twice daily February 16, 2025 9:38am 8 units AM 12 units in the Afternoon and 12 units in the eveningStart: 02-23-2024 End: 89-73-8262nnwqmi 100 [IU] by subcutaneous injection once daily at bedtime as neededInsulin Lispro (Humalog Kwikpen Insulin) 100 unit/mL insulin pen Discontinued 5 - 6 UNIT SUBCUT Twice daily February 23, 2024 5:04pm February 16, 2025 9:40am once a day in the morning and PRN QHSStart: 83-99-0466mdyskg 100 [IU] by subcutaneous injection once daily at bedtime as neededInsulin Lispro (Humalog Kwikpen Insulin) 100 unit/mL insulin pen Active 5 - 6 UNIT SUBCUT Twice daily February 23, 2024 4:04pm once a day in the morning and PRN QHSStart: 18-49-8660jowozt 100 [IU] by subcutaneous injection once daily at bedtime as neededInsulin Lispro (Humalog Kwikpen Insulin) 100 unit/mL insulin pen Active 5 - 6 UNIT SUBCUT Twice daily February 23, 2024 5:04pm once a day in the morning and PRN QHS3 ml insulin, regular, human 500 unt/ml pen injector (20 sources)InsulinStart: 20-75-5598auxvfzl regular (HumuLIN R U-500 KWIKPEN) 500 UNIT/ML CONCENTRATED injection Indications: Type 2 diabetes mellitus with peripheral neuropathy (CMS/HCC) 55 units breakfast and 25 units dinner 6 mL 3 ActiveStart: 03-01-2024 End: 59-02-1564Yiwixao Regular Hum U-500 Conc (Humulin R U-500 (Conc) Kwikpen) 500 unit/mL (3 mL) insulin pen Discontinued 55 UNIT SUBCUT Twice daily March 01, 2024 9:35am February 16, 2025 9:37amStart: 02-23-2024 End: 10-80-7048uohdqt 60 [IU] by subcutaneous injection in the morning, then inject 30 [IU] by subcutaneous injection in the eveningInsulin Regular Hum U-500 Conc (Humulin R U-500 (Conc) Kwikpen) 500 unit/mL (3 mL) insulin pen Disco ntinued 0 SUBCUT As Directed February 23, 2024 5:09pm March 01, 2024 9:42am 60 units in the morning and 30 units in the evening subcutaneously as directed; Start: 55-11-8576arhmjqc regular (HumuLIN R U-500 KWIKPEN) 500 UNIT/ML CONCENTRATED injection Indications: Type 2 diabetes mellitus with peripheral neuropathy (CMS/HCC) 55 units breakfast and 25 units dinner 3 mL 10/12/2023 ActiveStart: 81-35-6517uzupud 60 [IU] by subcutaneous injection in the morning, then inject 30 [IU] by subcutaneous injection in the eveningHumuLIN R U-500 KwikPen 500 UNIT/ML Subcutaneous Solution Pen-injector ADMINISTER 60 UNITS IN THE MORNING AND 30 UNITS IN THE EVENING Quantity: 12 Refills: 0 Ordered: 06-Apr-2023 DO Start : 4-Iok-3164HvucfkShacz: 02-11-2018 End: 71-93-5057Zlivvhc Regular Hum U-500 Conc (Humulin R U-500 (Conc) Insulin) 500 unit/mL solution Discontinued 80 UNIT SUBCUT Daily with breakfast February 11, 2018 11:16am February 12, 2024 12:28pm Patient varies dosage depending on dietary intakeStart: 02-11-2018 End: 17-14-2399mwkqaq 40 [IU] by subcutaneous injection once dailyInsulin Regular Hum U-500 Conc (Humulin R U-500 (Conc) Insulin) 500 unit/mL solution Discontinued 40 UNIT SUBCUT Daily with supper February 11, 2018 11:16am February 12, 2024 12:29pm Pt. varies dosage according to dietary intake.Start: 01-21-2018 End: 02-26-3262dianpo 1 dose by subcutaneous injection four times [...] mation source for Protocol details.Start: 01-21-2018 End: 49-98-4667Pqhmsze Regular Hum U-500 Conc (Humulin R U-500 (Conc) Kwikpen) 500 unit/mL (3 mL) Insulin Pen Discontinued 0 .ROUTE .COMPLEX January 21, 2018 1:00am February 11, 2018 11:17am Check glucose ac, hs.Use corrective scale ac tid. Use hs if glucose >225. Please contact the information source for Pr otocol details.Start: 01-17-2018 End: 08-06-0016Xgqflfp Regular Hum U-500 Conc (Humulin R U-500 (Conc) Insulin) 500 unit/mL solution Discontinued 90 UNIT SUBCUT Daily with breakfast 0 January 21, 2018 8:54am February 11, 2018 11:16am If eatingStart: 12-25-2017 End: 45-02-1219Kwyknbo Regular Hum U-500 Conc (Humulin R U-500 (Conc) Insulin) 500 unit/mL Solution Discontinued 80 UNIT SUBCUT Daily with supper 0 January 02, 2018 6:07pm January 17, 2018 1:34amStart: 12-25-2017 End: 51-68-0980Vnxwgte Regular Hum U-500 Conc (Humulin R U-500 (Conc) Insulin) 500 unit/mL Solution Discontinued 100 UNIT SUBCUT Daily with breakfast 0 January 03, 2018 3:07pm January 17, 2018 1:34amStart: 12-25-2017 End: 30-29-0279phfanx 100 [IU] by subcutaneous injection once daily before breakfastInsulin Regular Human (Humulin R U-100) 100 unit/mL Solution Discontinued 100 UNITS SUBCUT Daily before breakfast December 25, 2017 1:00am December 25, 2017 3:53pmStart: 12-25-2017 End: 95-66-4999qobhxj 80 [IU] by subcutaneous injection once dailyInsulin [...] (Probiotic) 3 billion cell capsule (1 source)Start: 17-94-4423lqxp 3 capsules by mouth once dailyLactobacillus Combination No.4 (Probiotic) 3 billion cell capsule Active 3000 MMU CELLS PO Daily July 12, 2025 12:00am administer with a meal Complies with drug therapylevoFLOXacin 500 mg oral tablet (3 sources)Quinolone AntimicrobialStart: 78-70-0889jkfy 1 tablet by mouth every twenty-four hourslevoFLOXacin 500 MG 1 tablet Orally Once a day for 7 days Nov, Activelinezolid 600 mg oral tablet (1 source)Oxazolidinone AntibacterialStart: 34-26-4130smzv 1 tablet by mouth twice dailyLinezolid 600 mg tablet Active 600 MG PO Twice daily July 12, 2025 12:00am Complies with drug therapymagnesium glycinate 100 mg oral tablet (20 sources)Start: 04-24-5095Laxnhwyay Glycinate 100 mg Tablet Active 600 MG PO Daily at bedtime June 17, 2019 12:00am Complies with drug therapyStart: 73-95-9275fdio 600 mg by mouth once daily at bedtimeMagnesium Glycinate Active 600 MG PO Daily at bedtime June 17, 2019 12:00amStart: 01-19-2018 End: 64-39-7505Heqsxlhle Glycinate 100 mg Tablet Discontinued 600 MG PO Daily at bedtime January 19, 2018 1:00am February 11, 2018 11:15amStart: 01-19-2018 End: 38-25-9310xzet 600 mg by mouth once daily at bedtimeMagnesium Glycinate Discontinued 600 MG PO Daily at bedtime January 19, 2018 1:00am February 11, 018 11:15amMagnesium Glycinate Plus 600 mg (20 sources)Magnesium Glycinate Plus 600 mg 1 tablet QHS Activenitroglycerin 0.4 mg sublingual tablet (20 sources)Nitrate VasodilatorStart: 93-83-4924Tiidyigqcjxkq 0.4 mg tablet, sublingual Active 0.4 MG BUCCAL As Directed as needed for Chest Pain March 25, 2022 12:00am Complies with drug therapyStart: 01-18-9073kzpfjlhdzdski (Nitrostat) 0.4 mg SL tablet Indications: Chest pain, unspecified DISSOLVE 1 TABLET UNDER THE TONGUE EVERY 5 MINUTES NEEDED FOR CHEST PAIN. DO NOT EXCEED A TOTAL OF 3 DOSES IN 15 MINUTES. GO TO THE ER IF PERSISITS. 90 tablet 1 12/24/2023 ActiveStart: 71-77-5608Hbfwgmdxmkpjv Active 0.4 MG BUCCAL As Directed March 24, 2022 11:00pmomega-3 acid ethyl esters (long-term) 1000 mg oral capsule (20 sources)Start: 46-59-1508oiex 1 capsule by mouth in the morningomega-3 acid ethyl esters (Lovaza) 1 g capsule Take 2 g by mouth in the morning and 2 g before bedtime. 03/04/2023 ActiveStart: 06-15-2019 End: 81-96-9539Yyapp-3 Acid Ethyl Esters (Lovaza) 1 gram capsule Discontinued 2 CAP PO Twice daily 360 90 September 23, 2024 11:59am April 11, 2025 4:11pmStart: 12-25-2017 End: 77-14-1154Zhgld-3 Acid Ethyl Esters (Lovaza) 1 gram Capsule Discontinued 2 CAP PO Twice daily December 25, 2017 1:00am January 03, 2018 3:03pmomega-3 acid ethyl esters (Lovaza) 1 gram capsule Take 1 capsule (1 g) by mouth twice a day. ActivePen Needle, Diabetic (2 sources)Start: 02-60-6059Ajl Needle, Diabetic Active 0 .Route September 12, 2024 1:53pm As directedStart: 09-12-2024 End: 44-57-6202Bmg Needle, Diabetic Discontinued 0 .Route September 12, 2024 12:00am September 12, 2024 1:53pmAs directedpolyethylene glycol 3350 997860 mg / potassium chloride 2970 mg / sodium bicarbonate 6740 mg / sodium chloride 5860 mg / sodium sulfate 07086 mg powder for oral solution (2 sources)Osmotic LaxativeStart: 08-44-3264Mmlgxhid 236 GM At 4:00 pm the day prior to colonoscopy Orally 8 ounces every 15 minutes for 1 daysPLEASE CHECK ALLERGIES Jul, Activepregabalin 150 mg oral capsule (20 sources)Start: 01-09-2025 End: 51-15-2868fere 1 capsule by mouth twice dailyPregabalin (Lyrica) 150 mg capsule Active 150 MG PO Twice daily 180 90 January 09, 2025 11:34am Complies with drug therapyStart: 73-94-7522zmrr 1 capsule by mouth once in the morning Pregabalin 75 MG 1 capsule Orally Q AM Dec, ActiveStart: 08-02-2021 Start: 83-77-2438dzgw 1 capsule by mouth once in the morningPregabalin 75 MG 1 capsule Orally Q AM Jul, ActiveStart: 04-01-2021 End: 59-74-5048eknb 1 capsule by mouth once dailyPregabalin (Lyrica) 150 mg capsule Discontinued 150 MG PO Daily 90 February 12, 2024 12:34pm February 12, 2024 5:43pmStart: 04-01-2021 End: 10-97-9298sgyt 2 capsules by mouth once daily in the morningPregabalin 75 mg capsule Discontinued 150 MG PO Every morning April 01, 2021 12:00am February 12, 2024 12:25pmStart: 06-15-2019 End: 56-08-2921swqy 1 capsule by mouth once daily at bedtimePregabalin (Lyrica) 300 mg capsule Discontinued 300 MG PO Daily at bedtime 90 February 12, 2024 12 :35pm February 12, 2024 5:46pmStart: 01-21-2018 End: 09-14-9860simf 1 capsule by mouth twice dailyPregabalin (Lyrica) 75 mg Capsule Discontinued 75 MG PO Twice daily January 21, 2018 1:00am February 11, 2018 11:16amStart: 12-25-2017 End: 82-69-8647dqde 1 capsule by mouth twice dailyPregabalin (Lyrica) 300 mg Capsule Discontinued 300 MG PO Twice daily December 25, 2017 1:00am January 03, 2018 3:03pm End: 08-78-2122vhwg 1 capsule by mouth once daily in the morningPREGABALIN ORAL Take 1 capsule by mouth once daily in the morning. 0 02/22/2024 Discontinued (Other)Lyrica CAPS TAKING 150MG IN AM, 300MG IN PM Quantity: 0 Refills: 0 Ordered: 20-Feb-2022 DO ActiveSuper B Complex (20 sources)Super B Complex Activeubidecarenone 300 mg oral capsule (20 sources)Start: 89-07-7999ybjg 10 capsules by mouth once dailyCoenzyme Q10 300 mg capsule Active 300 MG PO Daily March 01, 2024 12:00am Complies with drug therapyStart: 65-49-0414lyau 1 capsule by mouth twice dailyCo-Enzyme Q10 100 MG Oral Capsule TAKE 1 CAPSULE TWICE DAILY. Quantity: 180 Refills: 3 Ordered: 9-Ju n-2022 Rosalinda Torres MD Start : 08-May-2022 ActiveCoQ-10 100 MG as directed Orally ONCE A DAY Activeubiquinol (2 sources)COQ10, UBIQUINOL, ORAL Take by mouth. KejocaIPS03, UBIQUINOL, ORAL Take by mouth. 0 ActiveVitamin B Complex (20 sources)Start: 62-44-5043scuu 1 tablet by mouth once daily in the morning Vitamin B Complex Active 1 TAB PO Every morning June 15, 2019 12:00amStart: 21-56-9362rogl 1 tablet by mouth once daily in the morningVitamin B Complex Active 1 TAB PO Every morning June 14, 2019 11:00pmVitamin B Complex Tablet (18 sources)Start: 88-65-8153ycwq 1 tablet by mouth once daily in the morning Start: 70-50-6529tkzl 1 tablet by mouth once daily in the morningVitamin B Complex Tablet Active 1 TAB PO Every morning June 15, 2019 12:00am Complies with drug therapyStart: 11-91-6193zlgr 1 tablet by mouth once daily in the morningVitamin B Complex Tablet Active 1 TAB PO Every morning June 15, 2019 12:00amStart: 15-40-4791ufvn 1 tablet by mouth once daily in the morningVitamin B Complex Tablet Active 1 TAB PO Every morning June 14, 2019 11:00pm Completed/Discontinued Medications MedicationDrug Class(es)DatesSig (Normalized)Sig (Original)Accu-Chek Vicenta as manufactured (20 sources)Start: 51-91-6133Xvwe-Chek Vicenta as manufactured four times daily 250.92/V58.67 qid Nov, Not-TakingStart: 76-50-1880Ugov-Chek Vicenta as manufactured four times daily 250.92/V58.67 qid Nov, ActiveStart: 38-31-9799Rjxs-Chek SmartView as manufactured (20 sources)Start: 67-68-9842Dzyh-Chek SmartView as manufactured QID e11.9 QID Nov, Not-TakingStart: 46-44-4819Pvfl-Chek SmartView as manufactured QID e11.9 QID Nov, ActiveStart: 76-93-4151zpjcdqabedhne 325 mg / HYDROcodone bitartrate 5 mg oral tablet (20 sources)Opioid AgonistStart: 06-19-2020 End: 67-68-6126uvyv 1 tablet by mouth twice daily as needed for painHydrocodone- Acetaminophen ([place]) 5-325 mg tablet Discontinued 1 TAB PO Twice daily as needed for Pain June 19, 2020 12:00am July 27, 2020 8:14amStart: 01-17-2018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 [Carpal tunnel syndrome, right upper limb]Onset: [id number] non-traumatic joint disorders (20 sources)Charcot's joint of foot; Translations: [Charcot's joint, unspecified ankle and foot]70-59-2192KhrdltgDfovm non-traumatic joint disorders (20 sources)Arthropathy associated with a neurological disorder; Translations: [Charcot's joint, left ankle andfoot]ChronicOther non-traumatic joint disorders (6 sources)Charcot's joint, left ankle and foot; Translations: [CHARCOTS JOINT LEFT ANKLE AND FO]Onset: 82-18-9869YhqfambNwelt non-traumatic joint disorders (2 sources)Charcot's joint, right ankle and foot; Translations: [CHARCOTS JOINT RIGHT ANKLE AND F]Onset: 14-84-2833JxcnfktGwego non-traumatic joint disorders (20 sources)Pain in left knee; Translations: [Pain in left knee]EpisodicOther non-traumatic joint disorders (20 sources)Pain in right knee; Translations: [Pain in right knee]EpisodicOther non-traumatic joint disorders (20 sources)Arthralgia of the ankle and/or foot; Translations: [Pain in left ankle and joints of left foot]21-99-6997EpbsljdsBypce non-traumatic joint disorders (18 sources)Pain in right shoulder; Translations: [Right shoulder pain]Onset: [id number] non-traumatic joint disorders (13 sources)Joint pain; Translations: [Pain in unspecified joint]01-09-2025 EpisodicOther nutritional; endocrine; and metabolic disorders (20 sources)Obesity; Translations: [Obesity, unspecified]Onset: 02-22-2024 06-61-7490FsurigbQfpml nutritional; endocrine; and metabolic disorders (20 sources)Hypercalcemia; Translations: [Hypercalcemia]ChronicOther nutritional; endocrine; and metabolic disorders (20 sources)Hypomagnesemia; Translations: [Hypomagnesemia]24-57-7161NtqqeypQdlbk nutritional; endocrine; and metabolic disorders (6 sources)Hypomagnesemia; Translations: [Disorders of magnesium metabolism] ChronicOther nutritional; endocrine; and metabolic disorders (2 sources)Obesity, unspecified; Translations: [Obesity, unspecified]Onset: 42-60-1405GkzbkubDmdtq nutritional; endocrine; and metabolic disorders (2 sources)Body mass index (BMI) 37.0-37.9, adult; Translations: [Body mass index (BMI) 37.0-37.9, adult]Onset: 68-06-8910KincsnfAnaif nutritional; endocrine; and metabolic disorders (14 sources)Severe obesity; Translations: [Class 2 severe obesity due to excess calories with serious comorbidity and body mass index (BMI) of 39.0 to 39.9 in adult ([facility])]Onset: 232955-56-0942VyuabsdKkrkr nutritional; endocrine; and metabolic disorders (12 sources)Hyperuricemia without signs of inflammatory arthritis and tophaceous disease; Translations: [Other abnormal blood chemistry]Onset: 12-03-2021 Resolved: 23-68-1813GksfojmcVxkmd nutritional; endocrine; and metabolic disorders (20 sources)Hyperuricemia; Translations: [Hyperuricemia without signs of inflammatory arthritis and tophaceous disease]26-55-8803YurcgzheKdhme nutritional; endocrine; and metabolic disorders (20 sources)H/O: metabolic disorder; Translations: [Personal history of other endocrine, nutritional and metabolic disease]17-64-0356EobzdrwnFodnc screening for suspected conditions (not mental disorders or infectious disease) (20 sources)Cardiovascular finding; Translations: [Abnormal findings on diagnostic imaging of other specified body structures]62-77-3634WenhmryTtykw screening for suspected conditions (not mental disorders or infectious disease) (14 sources)Electrocardiogram abnormal; Translations: [Nonspecific abnormal electrocardiogram [ECG] [EKG]]Onset: 83-66-2321FbgfbiqbBegos upper respiratory infections (1 source)Acute pansinusitis, unspecifiedEpisodicPancreatic disorders (not diabetes) (20 sources)Pancreatitis; Translations: [Acute pancreatitis without necrosis or infection, unspecified]62-87-7076OqlqbbfoNjiucuqf codes; unclassified (20 sources)Obstructive sleep apnea syndrome; Translations: [Obstructive sleep apnea (adult)(pediatric)]Onset: 094666-26-8627LslvniuHroidyso codes; unclassified (8 sources)Obstructive sleep apnea (adult) (pediatric); Translations: [Obstructive sleep apnea (adult)(pediatric)]Onset: 02-07-2022 Resolved: 22-57-0343XbpkmoaGinehqin codes; unclassified (20 sources)Sleep apnea; Translations: [Sleep apnea, unspecified]ChronicResidual codes; unclassified (2 sources)Sleep apnea, unspecified; Translations: [SLEEP APNEA UNSPECIFIED] Onset: 42-70-9459BamgmjvVlaiobhx codes; unclassified (20 sources)Insomnia; Translations: [Insomnia, unspecified]76-41-1098Outstxis Residual codes; unclassified (2 sources)Other specified postprocedural statesOnset: 04-14-2022 Resolved: 76-92-7629IeuqiwsbRwjcrrjh codes; unclassified (3 sources)Insomnia, unspecifiedOnset: 04-30-2022 Resolved: 10-24-1384VczqyeupLawrisve codes; unclassified (14 sources)Family history of dementia; Translations: [Family history of other mental and behavioral disorders]54-51-0656ImsnutqjTlryrmce codes; unclassified (9 sources)Family history of other mental and behavioral disorders; Translations: [Family history of other neurological diseases]81-14-7298Niaozxwu Septicemia (except in labor) (20 sources)Septic shock; Translations: [Sepsis, unspecified organism]02-17-2018 EpisodicSpondylosis; intervertebral disc disorders; other back problems (20 sources)Cervical spondylosis without myelopathy; Translations: [Spondylosis without myelopathy or radiculopathy, cervical region]Onset: 10-01-2021 Resolved: 60-30-3860EulvfiiOawaijpuytx; intervertebral disc disorders; other back problems (20 sources)Neck pain; Translations: [Cervicalgia]Onset: 10-01-2021 Resolved: 46-78-5655FefhczpfJpvhtzc and strains (15 sources)Traumatic rupture of biceps tendon; Translations: [Strain of muscle, fascia and tendon of long headof biceps, unspecified arm, initial encounter] 28-97-7655TvthgfyePbevctwtykcq (1 source)CONTACT W/AND (SUSP) EXPOS COVID-19; Translations: [CONTACT W/AND (SUSP) EXPOS COVID-19]Onset: 65-09-1369Ckbrfatocstc (1 source)Cough, unspecified; Translations: [Cough, unspecified]Onset: 12-08-2024 Past or Other Problems Problem ClassificationProblemDateDocumented DateEpisodic/ChronicAcquired foot deformities (3 sources)Varus deformity, not elsewhere classified, left ankle; Translations: [Valgus deformity, not elsewhere classified, left ankle]Onset: 01-06-2023 EpisodicCardiac dysrhythmias (6 sources)Ventricular premature beats; Translations: [Other premature beats] Resolved: 97-97-2018DtdtaqoXnbqgfn kidney disease (20 sources)Chronic kidney disease; Translations: [Chronic kidney disease, stage III (moderate)]Onset: 02-20-2022 Resolved: 87-23-9541Izldi acquired deformities (20 sources)Lumbar spondylolisthesis; Translations: [Spondylolisthesis, lumbar region]Onset: 321376-87-0712ShcoocauRanuh aftercare (1 source)Other snf (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 therapy; Translations: [OTH [facility] CURRENT DRUG THERAPY]Onset: 45-88-8970IbvzripyUvmjt aftercare (1 source)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; Translations: [[facility] CURRENT USE OF INSULIN]Onset: 84-72-8406XvrmmwnlEdgyz aftercare (1 source)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; Translations: [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 CLERK CURRENT 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 OF ASPIRIN]Onset: 30-25-4211XwojquyyOqyqv aftercare (1 source)halfway (current) use of anticoagulants; Translations: [[facility] CURRNT USE ANTICOAGULANTS]Onset: 10-40-6707UukmkfaxXbjtt bone disease and musculoskeletal deformities (1 source)Other specified disorders of bone density and structure, left ankle and foot; Translations: [OTH D/O BONE DEN STRUCT LT ANK FOOT]Onset: 01-06-2023 EpisodicOther connective tissue disease (4 sources)Pain in left foot; Translations: [PAIN IN LEFT FOOT]Onset: 11-16-2022 EpisodicOther connective tissue disease (1 source)Pain in right foot; Translations: [PAIN IN RIGHT FOOT]Onset: 21-18-1902ZelhkaqlFkorz connective tissue disease (20 sources)Unspecified rotator cuff tear or rupture of right shoulder, not specified as traumatic; Translations: [Disorders of bursae and tendons in shoulder region, unspecified]Onset: 377554-43-9189LlypxcezDhqxh lower respiratory disease (6 sources)Dyspnea on exertion; Translations: [Other respiratory abnormalities] Resolved: 48-54-7745HeizgylaEpwdj lower respiratory disease (2 sources)Shortness of breathOnset: 02-07-2022 Resolved: 66-91-8916FyhboqpmJxmbl non-traumatic joint disorders (4 sources)Pain in right ankle and joints of right foot; Translations: [PAIN IN RIGHT ANKLE]Onset: 11-87-6844NhbrmnmcPhwus non-traumatic joint disorders (1 source)Pain in left ankle and joints of left foot; Translations: [PAIN IN LEFT ANKLE]Onset: 24-66-0004JbgalxteWkttmewi codes; unclassified (6 sources)History of palpitations; Translations: [Personal history of other diseases of circulatory system] Resolved: 75-61-5721WdocaiqoYpvfqykq codes; unclassified (1 source)Acquired absence of other specified parts of digestive tract; Translations: [ACQ ABSENCE OTH PART DIGESTV TRACT]Onset: 99-51-6995Mmaagoml Substance-related disorders (1 source)Opioid use, unspecified, uncomplicatedOnset: 10-01-2021 Resolved: 71-09-6239BlhirowbAuvqghzfradg (6 sources)Never smoked tobacco; Translations: [Never a smoker]Unclassified (1 source)Cough R05.9Onset: 12-03-2021 Resolved: 84-48-0314Qajxguqnetki (1 source)Low back pain, unspecified M54.50Unclassified (2 sources)Onset: Results Test NameValueInterpretationReference RangeFacilityBasophils Auto (Bld) [#/Vol] Ordered By: Karla Lyons on 88-02-3265Omitskavq (Bld) [#/Vol]0.0 10 3/uL0.0-0.1 [facility] CenterBasophils/100 WBC Auto (Bld)Ordered By: Karla Lyons on 41-73-6377Ecbstrzis/100 WBC (Bld)0.1 %Low0.2-2.0[facility] CenterEosinophils/100 WBC Auto (Bld)Ordered By: Karla Lyons on 69-44-6432Jlrwgnpiacu/100 WBC (Bld)0.0 %Low0.9-7.0[facility] CenterErythrocyte distribution width Auto (RBC) [Ratio]Ordered By: Karla Lyons on 44-71-7301Nrybsjpfmbp distribution width (RBC) [Ratio]12.2 %11.0-15.0 [facility] CenterGlobulin Calc (S) [Mass/Vol]Ordered By: Karla Lyons on 02-57-6798Jexnwicc (S) [Mass/Vol]4.1 g/dLOhio State University Wexner Medical CenterGlomerular filtration rate (GFR) estimation in non- AmericanOrdered By: Karla Lyons on 04-07-3726SSJ/1.73 sq M.predicted among non-blacks MDRD (S/P/Bld) [Vol rate/Area]34 mL/min/{1.73_m2}Low>=60 mL/min/1.73m 2FSumma Health Barberton CampusHematocrit Auto (Bld) [Volume fraction]Ordered By: Karla Lyons on 29-22-3454Uwsymktajx (Bld) [Volume fraction]30.3 %Low36.0-48.0 [facility] CenterHemoglobin [Mass/volume] in BloodOrdered By: Karla Lyons on 26-89-2427Wymsjsyskj (Bld) [Mass/Vol]10.1 g/dLLow12.0-16.0 [facility] CenterLaboratory - Chemistry and Chemistry - challengeOrdered By: Karla Lyons on 63-85-1066Fzohurz [Mass/Vol]1.9 g/dLLow 3.4-5.0[facility] CenterALP [Catalytic activity/Vol]99 U/L46-116 [facility] CenterALT [Catalytic activity/Vol]23 U/L14-59 [facility] CenterAST [Catalytic activity/Vol]14 U/ODpf56-45 [facility] CenterBilirubin [Mass/Vol]0.3 mg/dL0.2-1.0[facility] CenterCalcium [Mass/Vol]8.6 mg/dL8.5-10.1FSumma Health Barberton CampusChloride [Moles/Vol]106 mmol/S11-434DasxwurdtOhio State University We[facility]ner Medical CenterCO2 [Moles/Vol]23.0 mmol/L21.0-32.0[facility] Creatinine [Mass/Vol]1.54 mg/dLHigh0.55-1.02[facility] GFR/1.73 sq M.predicted MDRD (S/P/Bld) [Vol rate/Area]41 mL/min/{1.73_m2}Low>=60 mL/min/1.73m 2FSumma Health Barberton CampusGlucose [Mass/Vol]253 mg/dLHigh 74-106[facility] CenterMagnesium [Mass/Vol]1.7 mg/dLLow1.8-2.4 [facility] CenterPotassium [Moles/Vol]5.0 mmol/L3.5-5.1FSumma Health Barberton CampusProtein [Mass/Vol]6.0 g/dLLow6.4-8.2FElyria Memorial Hospitalodium [Moles/Vol]138 mmol/Q455-241MbxeffeqnOhio State University [facility] Medical CenterUrea nitrogen [Mass/Vol]56.0 mg/dLHigh7.0-18.0[facility] CenterUrea nitrogen/Creatinine [Mass ratio]36.4 mg/mgOhio State University [facility] Medical CenterLaboratory - Hematology and Cell countsOrdered By: Karal Lyons on 62-05-6688MFY (Bld) [Velocity]106 mm/hHigh<=30[facility] Immature granulocytes/100 WBC (Bld)0.8 %High0.0-0.5FSumma Health Barberton CampusLeukocytes [#/volume] corrected for nucleated erythrocytes in Blood by Automated counOrdered By: Karla Lyons on 82-25-5485JQF corrected for nucl RBC Auto (Bld) [#/Vol]11.8 10 3/uLHigh4.0-11.0[facility] Lymphocytes Auto (Bld) [#/Vol]Ordered By: Karla Lyons on 94-76-1548Isivisshqjq (Bld) [#/Vol]0.8 10 3/uLLow1.2-3.8[facility] Lymphocytes/100 WBC Auto (Bld)Ordered By: Karla Lyons on 06-30-2025 Lymphocytes/100 WBC (Bld)7.0 %Low20.5-60.0[facility] HospitalH Auto (RBC) [Entitic mass]Ordered By: Karla Lyons on 15-81-2409ILO (RBC) [Entitic mass]29.3 pg26.7-34.0[facility] CenterMCHC Auto (RBC) [Mass/Vol]Ordered By: Karla Lyons on 49-93-0054XBZA (RBC) [Mass/Vol]33.3 g/dL 29.9-35.2FSumma Health Barberton CampusMCV Auto (RBC) [Entitic vol]Ordered By: Karla Lyons on 54-71-2858CIZ (RBC) [Entitic vol]87.8 fL81.0-99.0[facility] CenterMonocytes Auto (Bld) [#/Vol]Ordered By: Karla Lyons on 97-07-7772Qtigrvgky (Bld) [#/Vol]0.5 10 3/uL0.3-0.8[facility] CenterMonocytes/100 WBC Auto (Bld)Ordered By: Karla Lyons on 06-30-2025 Monocytes/100 WBC (Bld)3.9 %1.7-12.0[facility] CenterNeutrophils Auto (Bld) [#/Vol]Ordered By: Karla Lyons on 24-15-9760Egkcehnsbme (Bld) [#/Vol]10.4 10 3/uLHigh1.4-6.5FSumma Health Barberton CampusNeutrophils/100 WBC Auto (Bld)Ordered By: Karla Lyons on 90-90-6297Qxvnbbyofpx/100 WBC (Bld) 88.2 %High43.0-75.0[facility] CenterNo Panel InformationOrdered By: Gustavo Cuevas on 82-91-6093Gvckupyt Identification OnlyOhio State University [facility] Medical CenterNo Panel InformationOrdered By: Karla Lyons on 58-72-1788Z- Reactive Protein, Wpjzvfzyadfn59.95 mg/dLHigh<=0.50[facility] CenterEosinophils # (Auto)0.0 10 3/uL0.0-0.7FSumma Health [facility] Campus Immature Granulocyte # (Auto)0.09 10 3/uLHigh0.00-0.03[facility] CenterPlatelet mean volume Auto (Bld) [Entitic vol]Ordered By: Karla Lyons on 96-49-1001Ufuzyrwz mean volume (Bld) [Entitic vol]11.5 fL9.5-13.5FSumma Health Barberton CampusPlatelets Auto (Bld) [#/Vol]Ordered By: Karla Lyons on 32-64-4107Kkbjqreah (Bld) [#/Vol]184 10 3/qD702-015WhrrmdkcqOhio State University Wexner Medical CenterRBC Auto (Bld) [#/Vol]Ordered By: Karla Lyons on 15-49-7958KEF (Bld) [#/Vol]3.45 10 6/uLLow4.20-5.40[facility] Centererum or plasma albumin/globulin mass ratioOrdered By: Karla Lyons on 06-30-2025 Albumin/Globulin [Mass ratio]0.5 {ratio}[facility] Centererum or plasma anion gap determinationOrdered By: Karla Lyons on 73-28-2617Gjutz gap [Moles/Vol]14.0 mmol/LFSumma Health Barberton CampusBasophils Auto (Bld) [#/Vol]Ordered By: Karla Lyons on 21-61-4266Buritbbok (Bld) [#/Vol]0.0 10 3/uL 0.0-0.1FSumma Health Barberton CampusBasophils/100 WBC Auto (Bld)Ordered By: Karla Lyons on 35-06-9614Ztdlslqco/100 WBC (Bld)0.1 %Low0.2-2.0[facility] CenterEosinophils/100 WBC Auto (Bld)Ordered By: Karla Lyons on 44-70-0800Iwjrrbaxwss/100 WBC (Bld)0.1 %Low0.9-7.0[facility] CenterErythrocyte distribution width Auto (RBC) [Ratio]Ordered By: Karla Lyons on 33-51-3683Tmuiwklvroz distribution width (RBC) [Ratio]12.3 %11.0-15.0 [facility] CenterGlobulin Calc (S) [Mass/Vol]Ordered By: Karla Lyons on 94-65-4444Uexonemr (S) [Mass/Vol]4.3 g/dLOhio State University Wexner Medical CenterGlomerular filtration rate (GFR) estimation in non- AmericanOrdered By: Karla Lyons on 27-46-0192FCH/1.73 sq M.predicted among non-blacks MDRD (S/P/Bld) [Vol rate/Area]31 mL/min/{1.73_m2}Low>=60 mL/min/1.73m 2FSumma Health Barberton CampusHematocrit Auto (Bld) [Volume fraction]Ordered By: Karla Lyons on 03-42-0977Lgefijlxjc (Bld) [Volume fraction]31.1 %Low36.0-48.0 [facility] CenterHemoglobin [Mass/volume] in BloodOrdered By: Karla Lyons on 25-46-6167Ugpbatkywv (Bld) [Mass/Vol]10.6 g/dLLow12.0-16.0 [facility] CenterLaboratory - Chemistry and Chemistry - challengeOrdered By: Karla Lyons on 57-23-5904Bxpldik [Mass/Vol]2.1 g/dLLow 3.4-5.0[facility] CenterALP [Catalytic activity/Vol]88 U/L46-116 [facility] CenterALT [Catalytic activity/Vol]17 U/L14-59 [facility] CenterAST [Catalytic activity/Vol]14 U/HSrd03-34 [facility] CenterBilirubin [Mass/Vol]0.5 mg/dL0.2-1.0[facility] CenterCalcium [Mass/Vol]8.9 mg/dL8.5-10.1FSumma Health Barberton CampusChloride [Moles/Vol]104 mmol/T73-962AfsgntnthOhio State University [facility] Medical CenterCO2 [Moles/Vol]21.2 mmol/L21.0-32.0[facility] Creatinine [Mass/Vol]1.68 mg/dLHigh0.55-1.02[facility] GFR/1.73 sq M.predicted MDRD (S/P/Bld) [Vol rate/Area]37 mL/min/{1.73_m2}Low>=60 mL/min/1.73m 2FSumma Health Barber[facility] CampusGlucose [Mass/Vol]201 mg/dLHigh 74-106[facility] CenterPotassium [Moles/Vol]5.1 mmol/L3.5-5.1 [facility] CenterProtein [Mass/Vol]6.4 g/dL6.4-8.2FElyria Memorial Hospitalodium [Moles/Vol]137 mmol/R659-272HewhmgvgdOhio State University [facility] Medical CenterUrea nitrogen [Mass/Vol]62.0 mg/dLHigh7.0-18.0[facility] CenterUrea nitrogen/Creatinine [Mass ratio]36.9 mg/mgOhio State University Wexner Medical CenterLaboratory - Chemistry and Chemistry - challengeOrdered By: Elpidio Whipple on 15-26-2154Fqnetldaq [Mass/Vol]1.9 mg/dL1.8-2.4FSumma Health Barberton CampusLaboratory - Hematology and Cell countsOrdered By: Karla Lyons on 83-33-4562Lmeheonx granulocytes/100 WBC (Bld)0.3 %0.0-0.5FSumma Health Barberton CampusLeukocytes [#/volume] corrected for nucleated erythrocytes in Blood by Automated counOrdered By: Karla Lyons on 27-48-6332TDW corrected for nucl RBC Auto (Bld) [#/Vol]14.5 10 3/uLHigh4.0-11.0[facility] CenterLymphocytes Auto (Bld) [#/Vol]Ordered By: Karla Lyons on 06-29-2025 Lymphocytes (Bld) [#/Vol]0.7 10 3/uLLow1.2-3.8[facility] Lymphocytes/100 WBC Auto (Bld)Ordered By: Karla Lyons on 06-29-2025 Lymphocytes/100 WBC (Bld)4.9 %Low20.5-60.0[facility] Auto (RBC) [Entitic mass]Ordered By: Krala Lyons on 06-84-7515OFJ (RBC) [Entitic mass]30.1 pg26.7-34.0[facility] CenterMCHC Auto (RBC) [Mass/Vol]Ordered By: Karla Lyons on 58-24-0380MZME (RBC) [Mass/Vol]34.1 g/dL 29.9-35.2FSumma Health Barberton CampusMCV Auto (RBC) [Entitic vol]Ordered By: Karla Lyons on 54-28-6801XIP (RBC) [Entitic vol]88.4 fL81.0-99.0[facility] CenterMonocytes Auto (Bld) [#/Vol]Ordered By: Karla Lyons on 73-56-0628Jksfnnxyn (Bld) [#/Vol]0.7 10 3/uL0.3-0.8[facility] CenterMonocytes/100 WBC Auto (Bld)Ordered By: Karla Lyons on 06-29-2025 Monocytes/100 WBC (Bld)4.8 %1.7-12.0[facility] CenterNeutrophils Auto (Bld) [#/Vol]Ordered By: Karla Lyons on 57-63-3238Wxzatnrpwqn (Bld) [#/Vol]13.0 10 3/uLHigh1.4-6.5FSumma Health Barberton CampusNeutrophils/100 WBC Auto (Bld)Ordered By: Karla Lyons on 21-07-8228Dkgfiyhjtwz/100 WBC (Bld) 89.8 %High43.0-75.0[facility] CenterNo Panel InformationOrdered By: Karla Lyons on 66-33-2139Qzovmrwpkho # (Auto)0.0 10 3/uL0.0-0.7FSumma Health Barberton CampusImmature Granulocyte # (Auto)0.05 10 3/uLHigh0.00-0.03 [facility] CenterPlatelet mean volume Auto (Bld) [Entitic vol] Ordered By: Karla Lyons on 29-83-1020Wbvwqtol mean volume (Bld) [Entitic vol] 11.4 fL9.5-13.5FSumma Health Barberton CampusPlatelets Auto (Bld) [#/Vol] Ordered By: Karla Lyons on 95-49-7076Lizzhfxsp (Bld) [#/Vol]178 10 3/gV131-714 [facility] CenterRBC Auto (Bld) [#/Vol]Ordered By: Karla Lyons on 57-13-2279OBU (Bld) [#/Vol]3.52 10 6/uLLow4.20-5.40[facility] Centererum or plasma albumin/globulin mass ratioOrdered By: Karla Lyons on 52-54-3603Fzihqkx/Globulin [Mass ratio]0.5 {ratio}[facility] Centererum or plasma anion gap determinationOrdered By: Karla Lyons on 23-67-1043Cpbke gap [Moles/Vol]16.9 mmol/LFSumma Health Barberton Campus Basophils Auto (Bld) [#/Vol]Ordered By: Charan Casey on 66-96-1975Igusqmnui (Bld) [#/Vol]0.0 10 3/uL0.0-0.1FSumma Health Barberton CampusBasophils/100 WBC Auto (Bld)Ordered By: Charan Casey on 24-19-8237Rqlzlglku/100 WBC (Bld)0.1 %Low0.2-2.0 [facility] CenterEosinophils/100 WBC Auto (Bld)Ordered By: Charan Casey on 62-49-6275Qfjqrocdzlz/100 WBC (Bld)0.1 %Low0.9-7.0[facility] CenterErythrocyte distribution width Auto (RBC) [Ratio]Ordered By: Charan Casey on 41-16-5636Xyjywfvqjss distribution width (RBC) [Ratio]12.1 %11.0-15.0 [facility] CenterGlobulin Calc (S) [Mass/Vol]Ordered By: Gustavo Cuevas on 38-67-4776Crrljmem (S) [Mass/Vol]4.6 g/dLOhio State University Wexner Medical CenterGlomerular filtration rate (GFR) estimation in non- AmericanOrdered By: Gustavo Cuevas on 27-18-0994DVH/1.73 sq M.predicted among non-blacks MDRD (S/P/Bld) [Vol rate/Area]19 mL/min/{1.73_m2}Low>=60 mL/min/1.73m 2FSumma Health Barberton CampusHematocrit Auto (Bld) [Volume fraction]Ordered By: Charan Casey on 68-05-1734Nggoiyrqhn (Bld) [Volume fraction]33.7 %Low36.0-48.0[facility] CenterHemoglobin [Mass/volume] in BloodOrdered By: Charan Casey on 71-94-6212Ovnfvladwp (Bld) [Mass/Vol]11.7 g/dLLow12.0-16.0[facility] CenterINR in Platelet poor plasma by Coagulation assayOrdered By: Gustavo Cuevas on 92-36-0045RWM Coag (PPP) [Relative time]1.02 {INR}[facility] CenterComment on above:DESIRED INR:2.0-3.0 CONDITIONS NOT LISTED BELOW2.5-3.5 FOR PROSTHETIC HEART VALVE REPLACEMENT2.5-3.5 RECURRENT THROMBOSISLaboratory - Chemistry and Chemistry - challengeOrdered By: Gustavo Cuevas on 13-13-5903Gstmoce [Mass/Vol]2.7 g/dLLow3.4-5.0[facility] CenterALP [Catalytic activity/Vol]90 U/F36-524AjwxwxftdOhio State University [facility] Center ALT [Catalytic activity/Vol]23 U/K65-47LnvczvpfzOhio State University We[facility]ner Medical CenterAST [Catalytic activity/Vol]25 U/R51-55PgshwfkpqOhio State University [facility] Medical CenterBilirubin [Mass/Vol]0.6 mg/dL0.2-1.0[facility] CenterCalcium [Mass/Vol]9.3 mg/dL8.5-10.1FSumma Health Barberton CampusChloride [Moles/Vol]99 mmol/L 98-107[facility] CenterCO2 [Moles/Vol]22.3 mmol/L21.0-32.0 [facility] CenterCreatinine [Mass/Vol]2.58 mg/dLHigh0.55-1.02 [facility] CenterGFR/1.73 sq M.predicted MDRD (S/P/Bld) [Vol rate/Area]23 mL/min/{1.73_m2}Low>=60 mL/min/1.73m 2FSumma Health Barberton CampusGlucose [Mass/Vol]81 mg/zJ39-240NmzlerqyyOhio State University We[facility] Medical CenterLactate [Moles/Vol]1.3 mmol/L0.4-2.0[facility] CenterPotassium [Moles/Vol]4.9 mmol/L3.5-5.1FSumma Health Barberton CampusProtein [Mass/Vol] 7.3 g/dL6.4-8.2FElyria Memorial Hospitalodium [Moles/Vol]136 mmol/L 136-145[facility] CenterUrea nitrogen [Mass/Vol]72.0 mg/dLHigh 7.0-18.0[facility] Medical CenterUrea nitrogen/Creatinine [Mass ratio] 27.9 mg/mgOhio State University Wexner Medical CenterLaboratory - Hematology and Cell countsOrdered By: Charan Casey on 68-10-8018MWR (Bld) [Velocity]104 mm/hHigh<=30 [facility] CenterImmature granulocytes/100 WBC (Bld)0.5 %0.0-0.5 [facility] CenterLeukocytes [#/volume] corrected for nucleated erythrocytes in Blood by Automated counOrdered By: Charan Casey on 33-75-2512RCL corrected for nucl RBC Auto (Bld) [#/Vol]17.3 10 3/uLHigh4.0-11.0[facility] CenterLymphocytes Auto (Bld) [#/Vol]Ordered By: Charan Casey on 00-54-6598Oqjlkuzupeo (Bld) [#/Vol]0.7 10 3/uLLow1.2-3.8[facility] CenterLymphocytes/100 WBC Auto (Bld)Ordered By: Charan Casey on 06-28-2025 Lymphocytes/100 WBC (Bld)4.0 %Low20.5-60.0[facility] Auto (RBC) [Entitic mass]Ordered By: Charan Casey on 01-82-0495EPH (RBC) [Entitic mass]30.4 pg26.7-34.0[facility] HospitalHC Auto (RBC) [Mass/Vol] Ordered By: Charan Casey on 27-56-2365PBON (RBC) [Mass/Vol]34.7 g/dL29.9-35.2 [facility] CenterMCV Auto (RBC) [Entitic vol]Ordered By: Charan Casey on 57-36-1310UYF (RBC) [Entitic vol]87.5 fL81.0-99.0[facility] CenterMonocytes Auto (Bld) [#/Vol]Ordered By: Charan Casey on 06-28-2025 Monocytes (Bld) [#/Vol]0.7 10 3/uL0.3-0.8[facility] Monocytes/100 WBC Auto (Bld)Ordered By: Charan Casey on 13-73-7584Nnvqiynta/100 WBC (Bld)4.0 %1.7-12.0[facility] CenterNeutrophils Auto (Bld) [#/Vol]Ordered By: Charan Casey on 47-41-2245Kuywzbqsbwo (Bld) [#/Vol]15.8 10 3/uL High1.4-6.5FSumma Health Barberton CampusNeutrophils/100 WBC Auto (Bld) Ordered By: Charan Casey on 20-88-1777Flfgaixfctk/100 WBC (Bld)91.3 %High43.0-75.0 [facility] CenterNo Panel InformationOrdered By: Charan Casey on 01-32-4342K-Reactive Protein, Wurcjnihoila15.00 mg/dLHigh<=0.50[facility] CenterEosinophils # (Auto)0.0 10 3/uL0.0-0.7FSumma Health Barberton CampusImmature Granulocyte # (Auto)0.09 10 3/uLHigh0.00-0.03[facility] CenterNo Panel InformationOrdered By: Gustavo Cuevas on 06-28-2025 Venous Blood Partial Pressure CO241.7 mm[Hg]40.0-52.0[facility] CenterVenous Blood pH7.3547.330-7.430[facility] CenterPlatelet mean volume Auto (Bld) [Entitic vol]Ordered By: Charan Caesy on 65-49-3620Kwgamuhx mean volume (Bld) [Entitic vol]11.8 fL9.5-13.5FSumma Health Barberton Campus Platelets Auto (Bld) [#/Vol]Ordered By: Charan Casey on 08-57-2953Jmwggexrd (Bld) [#/Vol]178 10 3/sW168-494XwnjhrdzbOhio State University Wexner Medical CenterProthrombin time (PT) Ordered By: Gustavo Cuevas on 48-65-3588AQ Coag (PPP) [Time]10.8 s9.0-11.6FSumma Health Barberton CampusRBC Auto (Bld) [#/Vol]Ordered By: Charan Casey on 85-50-6041UPD (Bld) [#/Vol]3.85 10 6/uLLow4.20-5.40[facility] Centererum or plasma albumin/globulin mass ratioOrdered By: Gustavo Cuevas on 43-97-5238Lzoloyy/Globulin [Mass ratio]0.6 {ratio}[facility] Centererum or plasma anion gap determinationOrdered By: Gustavo Cuevas on 67-36-9300Pujkq gap [Moles/Vol]19.6 mmol/LFSumma Health Barberton CampusX-ray reportOrdered By: Néstor Mays on 28-92-1562Ersva reportPAULDING COUNTY [facility] [address] [place] [address] XRay Report Signed Patient: Rita Cobb MR#: [id number] : 1960 Acct:[id number] Age/Sex: 64 / F ADM Date: 5 Loc: XDS Room: Type: [facility] Attending Dr: Acosta Castro DPM [place] Copies [...] Néstor Mays MD 06/05/251734 Signed By: 06/05/251740 [facility] Work Phone: XR foot BI 3Von 80-63-4751VW foot BI 3VPAULDING COUNTY [place] [address] XRay Report Signed Patient: Rita Cobb MR#: [id number] : 1960 Acct:[id number] Age/Sex: 64 / F ADM Date: 06/05/25 Loc: XDS Room: Type: [facility] Attending Dr: Acosta Castro DPM, [place] Copies [...] Néstor Mays MD 06/05/251734 Signed By: 06/05/25 1741[facility] XdxvyGdC9e (Bld) [Mass fraction]on 96-16-5948Ccmxxymtvenszd and review of laboratory resultsAbCone Health MedCenter High PointLaboratory - Hematology and Cell countson 62-17-4576JnI2f (Bld) [Mass fraction]8.1 %[facility] HospitalMR shoulder RT wo conon 10-83-9662HL shoulder RT wo [facility] [address] [place] [address] MRI Report Signed Patient: Rita Cobb MR#: [id number] : 1960 Acct:[id number] Age/Sex: 64 / F ADM Date: 01/23/25 Loc: [facility] Room: Type: [facility] Attending Dr: Nader Curry DO Copies [...] Timothy Levi M.D.01/26/2025 9:38 AM Dictation Location: [place] [address] Transcribed By: [facility] 01/26/25 0938 Dictated By: Timothy Levi II, MD 01/26/25 0902 Signed By: 01/26/2538[facility] Physician GroupInfluenza virus B Ag [Presence] in Upper respiratory specimen by Rapid immunoassayon 77-38-3303SIYWY Ag IA.rapid Ql (Nph)Influenza virus B Ag [Presence] in Upper respiratory specimen by Rapid immunoassayOhio State University Wexner Medical CenterNo Panel Informationon 12-09-2024 Influenza Type A (Rapid)NegativeOhio State University Wexner Medical CenterPO SARS CoV-2 AntigenNegativeOhio State University Wexner Medical CenterNo Panel InformationOrdered By: Charan Casey on 43-82-2067CFY (POC)[facility] CenterRSV (POC) [facility] CenterX-ray reportOrdered By: Néstor Mays on 69-96-9970Ddoqm reportPAULDING COUNTY [place] [address] XRay Report Signed Patient: Rita Cobb MR#: [id number] : 1960 Acct:[id number] Age/Sex: 64 / F ADM Date: 5 Loc: XDS Room: Type: [facility] CLI Attending Dr: Charan Casey DO [...] Néstor Mays M.D.12/08/2024 3:59 PM Dictation Location: [place] [address] Transcribed By: [facility] 12/08/24 1559 Dictated By: Néstor Mays MD 12/08/24 1524 Signed By: 12/08/24 1559 [facility] Work Phone: XR chest 2V*on 95-56-5426AL chest 2V*[facility] [address] [place] [address] XRay Report Signed Patient: Rita Cobb MR#: [id number] : 1960 Acct:[id number] Age/Sex: 64 / F ADM Date: 12/08/24 Loc: [facility] Room: Type: [facility] CLI Attending Dr: Charan Casey DO [...] Mays MD 12/08/24 1524 Signed By: 12/08/24 1559[facility] GroupXR shoulder RT min 2V*on 37-17-4207OR shoulder RT min 2V*[facility] [address] [place] [address] XRay Report Signed Patient: Rita Cobb MR#: [id number] : 1960 Acct:[id number] Age/Sex: 63 / F ADM Date: 10/25/24 Loc: [facility] Room: Type: [facility] Attending Dr: Nader Curry DO Copies [...] Crisostomo MD 10/25/24 0908 Signed By: 10/25/24 0911[facility] Physician YtzxzKvP1s (Bld) [Mass fraction]on 84-25-2363Lhyfwmtscemxpa and review of laboratory resultsFormerly [facility] CenterLaboratory - Hematology and Cell countson 11-39-3938VzB7d (Bld) [Mass fraction]7.6 %[facility] screening mammo BI w/CADon 36-56-0075FB screening mammo BI w/CADPAULDING COUNTY HOSPITAL [address] [place] [address] Mammography Report Signed Patient: Rita Cobb MR#: [id number] : 1960 Acct:[id number] Age/Sex: 63 / F ADM Date: 09/07/24 Loc: [place] Room: Type: [facility] CL Attending Dr: Referral Self Copies [...] Brown Jr., D.O.09/07/2024 9:04 AM Dictation Location: [facility] Transcribed By: FRANKY 09/07/24903 Dictated By: Sudhir Brown Jr, DO 09/07/24899 Signed By: 09/07/24903[facility] Physician GroupAlbumin [Mass/volume] in Serum or Plasma by Bromocresol green (BCG) dye binding methoOrdered By: Elpidio Whipple on 58-82-0120Bqzzjfo BCG dye [Mass/Vol]4.3 g/dL3.5-5.7FSumma Health Barberton CampusAutomated erythrocytes count in urine sediment (number/area)Ordered By: Elpidio Whipple on 52-11-3744LAO Auto (Urine sed) [#/Area]1-2 [HPF]0-4FSumma Health Barberton CampusAutomated leukocytes count in urine sediment (number/area)Ordered By: Elpidio Whipple on 08-97-4599XRT Auto (Urine sed) [#/Area] 5-9 [HPF]0-4FSumma Health Barberton CampusBilirubin Test strip Ql (U)Ordered By: Elpidio Whipple on 57-45-5088Yaloohxak Ql (U)NegativeNegativeOhio State University Wexner Medical CenterCalcium [Mass/volume] in Serum or PlasmaOrdered By: Elpidio Whipple on 50-55-8997Ifoogns [Mass/Vol]9.8 mg/dL8.6-10.3FSumma Health Barberton Campus Carbon dioxide, total [Moles/volume] in Serum or PlasmaOrdered By: Elpidio Whipple on 30-68-8758GC0 [Moles/Vol]30.4 mmol/L21.0-31.0[facility] CenterChloride [Moles/volume] in Serum or PlasmaOrdered By: Elpidio Whipple on 01-33-2299Obkqbgjz [Moles/Vol]103 mmol/U48-159EvglszfbbOhio State University We[facility]ner Medical Center Color Auto (U)Ordered By: Elpidio Whipple on 87-27-8014Zsocm (U)Dark yellowYellow [facility] CenterCreatinine [Mass/volume] in Serum or Plasma Ordered By: Elpidio Whipple on 79-33-3920Insmvpbomt [Mass/Vol]1.19 mg/dL0.60-1.20 [facility] CenterCreatinine [Mass/volume] in UrineOrdered By: Elpidio Whipple on 68-71-4327Febbaqxrlg (U) [Mass/Vol]101.0 mg/dLOhio State University Wexner Medical CenterComment on above:No reference range establishedErythrocyte distribution width Auto (RBC) [Ratio]Ordered By: Elpidio Whipple on 02-29-2024 Erythrocyte distribution width (RBC) [Ratio]12.9 %11.9-15.3FSumma Health Barberton CampusGlucose [Mass/volume] in Serum or PlasmaOrdered By: Elpidio Whipple on 41-97-5982Vafslwd [Mass/Vol]164 mg/bJ50-799VvnobhkjuOhio State University Wexner Medical Center Comment on above:ADA recommended reference rangeRandom Glucose Reference Range is dependent on time and content of last meal. Glucose of more than 200 mg/dL in a nonstressed, ambulatory subject supports the diagnosisof Diabetes Mellitus. Hematocrit Auto (Bld) [Volume fraction]Ordered By: Elpidio Whipple on 02-29-2024 Hematocrit (Bld) [Volume fraction]39.7 %34.0-46.4FSumma Health Barberton CampusHemoglobin [Mass/volume] in BloodOrdered By: Elpidio Whipple on 02-29-2024 Hemoglobin (Bld) [Mass/Vol]13.4 g/dL11.8-15.4FSumma Health Barber[facility] Campus Ketones Auto test strip (U) [Mass/Vol]Ordered By: Elpidio Whipple on 02-29-2024 Ketones (U) [Mass/Vol]NegativeNegativeOhio State University Wex[facility] Medical Center Laboratory - UrinalysisOrdered By: Elpidio Whipple on 08-04-4358Jmzbmdc casts LM Ql (Urine sed)0-8 [LPF]0-8[facility] CenterLeukocytes [#/volume] corrected for nucleated erythrocytes in Blood by Automated counOrdered By: Elpidio Whipple on 25-23-6880WNE corrected for nucl RBC Auto (Bld) [#/Vol]4.5 10*3/uL 3.8-11.6FSumma Health Barberton CampusMCH Auto (RBC) [Entitic mass]Ordered By: Elpidio Whipple on 30-91-8342YTQ (RBC) [Entitic mass]29.1 pg24.7-34.3FSumma Health Barberton CampusMCHC Auto (RBC) [Mass/Vol]Ordered By: Elpidio Whipple on 15-52-8460JCJP (RBC) [Mass/Vol]33.8 g/dL32.0-35.0[facility] CenterMCV Auto (RBC) [Entitic vol]Ordered By: Elpidio Whipple on 46-35-5099DIF (RBC) [Entitic vol]86.2 bI55-260CfhpxvdxbOhio State University Wexner Medical CenterMagnesium [Mass/volume] in Serum or PlasmaOrdered By: Elpidio Whipple on 97-08-5543Klivxzdrm [Mass/Vol]1.6 mg/dL1.9-2.7FSumma Health Barberton CampusNitrite Test strip Ql (U)Ordered By: Elpidio Whipple on 34-14-1364Mkmkkzg Ql (U)NegativeNegativeOhio State University Wexner Medical CenterNo Panel InformationOrdered By: Elpidio Whipple on 01-60-6653Lyzmxpazm GFR (CKD-EPI)51.377 mL/MinOhio State University Wexner Medical Center Pharmacy Creatinine Clearance (ChemN/[facility] Parathyrin.intact [Mass/volume] in Serum or PlasmaOrdered By: Elpidio Whipple on 31-05-1293Kqqjtxqaja.intact [Mass/Vol]53.1 pg/qH30-67OqkzazftmOhio State University Wexner Medical CenterPhosphate [Mass/volume] in Serum or PlasmaOrdered By: Elpidio Whipple on 48-84-4329Odekeeski [Mass/Vol]2.8 mg/dL2.5-4.5FSumma Health Barberton Campus Platelet mean volume Auto (Bld) [Entitic vol]Ordered By: Elpidio Whipple on 35-99-2829Fsjajjdb mean volume (Bld) [Entitic vol]9.5 fL6.3-10.7FSumma Health Barberton CampusPlatelets Auto (Bld) [#/Vol]Ordered By: Elpidio Whipple on 44-60-7181Gdnmshers (Bld) [#/Vol]174 10*3/kY706-727EnpscqbrvOhio State University Wexner Medical CenterPotassium [Moles/volume] in Serum or PlasmaOrdered By: Elpidio Whipple on 68-65-7725Sdigfrdhz [Moles/Vol]4.6 mmol/L3.5-5.1FSumma Health Barberton CampusProtein Auto test strip (U) [Mass/Vol]Ordered By: Elpidio Whipple on 06-43-3148Acfwsua (U) [Mass/Vol]30 mg/dLNegativeOhio State University Wexner Medical CenterProtein [Mass/volume] in UrineOrdered By: Elpidio Whipple on 94-59-7363Xxblttb (U) [Mass/Vol]43 mg/dL0-9[facility] CenterRBC Auto (Bld) [#/Vol]Ordered By: Elpidio Whipple on 09-04-2168UBK (Bld) [#/Vol]4.61 10*6/uL 3.60-5.00[facility] Centererum or plasma anion gap determinationOrdered By: Elpidio Whipple on 40-93-9482Qmvwo gap [Moles/Vol]11.2 mmol/L6.0-15.0[facility] Medical Centerodium [Moles/volume] in Serum or PlasmaOrdered By: Elpidio Whipple on 37-58-4853Vfteem [Moles/Vol]140 mmol/J159-824 [facility] Medical Centerpecific gravity Auto test strip (U) [Rel density]Ordered By: Elpidio Whipple on 42-32-3000Mylbfzti gravity (U) [Rel density] 1.0191.001-1.030[facility] Medical Centerquamous epithelial cells detection in urine sediment by light microscopyOrdered By: Elpidio Whipple on 68-41-0902Pwuwicxifd cells.squamous LM Ql (Urine sed)10-19 [HPF]0-2FSumma Health Barberton CampusUrate [Mass/volume] in Serum or PlasmaOrdered By: Elpidio Whipple on 02-07-0903Alxwe [Mass/Vol]7.1 mg/dL2.3-6.6FSumma Health Barberton CampusUrea nitrogen [Mass/volume] in Serum or PlasmaOrdered By: Elpidio Whipple on 73-24-5511Iohi nitrogen [Mass/Vol]29 mg/dL7-25[facility] Urine bacteria detection by automated methodOrdered By: Elpidio Whipple on 94-05-4908Nddujbgp Auto Ql (U)None seenNone SeenOhio State University Wexner Medical CenterUrine clarity by refractometry automatedOrdered By: Elpidio Whipple on 26-19-6870Dplscez Refractometry automated (U)ClearClearFprovidence st. peter hospital Regional Medical CenterUrine culture routineOrdered By: Elpidio Whipple on 17-51-6176Aqpykdth identified Cx Nom (U)2 DaysOhio State University Wexner Medical CenterUrine glucose measurement by automated test strip (mass/volume)Ordered By: Elpidio Whipple on 40-48-0762Bezznwb Auto test strip (U) [Mass/Vol]Normal mg/dLNoTriHealth Good Samaritan HospitalUrine hemoglobin detection by automated test stripOrdered By: Elpidio Whipple on 84-14-7356Gjvmjkpbjm Auto test strip Ql (U)NegativeNegative [facility] CenterUrine leukocyte esterase detection by automated test stripOrdered By: Elpidio Whipple on 73-48-6200Aovppvzkx esterase Auto test strip Ql (U)2+NegativeOhio State University Wexner Medical CenterUrine protein/creatinine ratioOrdered By: Elpidio Whipple on 90-74-7984Jecxumm/Creatinine (U) [Ratio]426 mg/g{Cre}0-200[facility] CenterUrobilinogen Auto test strip (U) [Mass/Vol]Ordered By: Elpidio Whipple on 14-41-8028Hrvigzntvfxp (U) [Mass/Vol]Normal mg/dLNoTriHealth Good Samaritan HospitalVitamin D+Metabolites [Mass/volume] in Serum or PlasmaOrdered By: Elpidio Whipple on 54-19-8944Xqhnrtm D+Metabolites [Mass/Vol]48.0 ng/nJ90-031EaesajdolOhio State University Wexner Medical CenterComment on above: VITAMIN D STATUS 25(OH)VITAMIN D RANGE (ng/mL) Deficient <20 Insufficient 20 to <26Eznwzvqmog05 to 100Reference: Nayeli MF,Hannah NC, Jose GILBERT, et al. Evaluation,treatment, and prevention of vitamin D deficiency; an Endocrine Society clinical practice guideline. JCEM. 2010; 96(7):1911-30.pH Auto test strip (U)Ordered By: Elpidio Whipple on 94-70-9840hX (U)5.5 [pH]5.0-9.0[facility] CenterRSVon 74-09-4566HRC Ag IA Ql (Unsp spec)NegativeNoSince1910.com Other Alanine aminotransferase [Enzymatic activity/volume] in Serum or PlasmaOrdered By: Charan Casey on 45-05-0406GIB [Catalytic activity/Vol]16 U/L7-52[facility] CenterAlbumin [Mass/volume] in Serum or Plasma by Bromocresol green (BCG) dye binding methoOrdered By: Charan Casey on 61-52-4119Vjjkvsq BCG dye [Mass/Vol]4.2 g/dL3.5-5.7FSumma Health Barberton CampusAlkaline phosphatase [Enzymatic activity/volume] in Serum or PlasmaOrdered By: Charan Casey on 20-04-1838XSC [Catalytic activity/Vol]65 U/L 34-104[facility] CenterAspartate aminotransferase [Enzymatic activity/volume] in Serum or PlasmaOrdered By: Charan Casey on 75-52-8551LRJ [Catalytic activity/Vol]16 U/S41-16TqtucstvwOhio State University We[facility]ner [facility] Center Bilirubin.total [Mass/volume] in Serum or PlasmaOrdered By: Charan Casey on 47-98-7043Iynbtfxfp [Mass/Vol]0.6 mg/dL0.3-1.0[facility] Calcium [Mass/volume] in Serum or PlasmaOrdered By: Charan Casey on 11-26-2023 Calcium [Mass/Vol]9.8 mg/dL8.6-10.3FSumma Health Barberton CampusCarbon dioxide, total [Moles/volume] in Serum or PlasmaOrdered By: Charan Casey on 49-38-0564VT7 [Moles/Vol]34.6 mmol/L21.0-31.0[facility] Chloride [Moles/volume] in Serum or PlasmaOrdered By: Charan Casey on 11-26-2023 Chloride [Moles/Vol]101 mmol/E44-647TltxgjbouOhio State University Wexner Medical CenterCholesterol [Mass/volume] in Serum or PlasmaOrdered By: Charan Casey on 41-97-3681Kjcaljhlmng [Mass/Vol]140 mg/fK867-021YjfodrvcvOhio State University Wexner Medical CenterComment on above: Chol less than 200 mg/dl low riskChol 201-239 mg/dl borderline riskChol 240 mg/dl and greater high riskCholesterol in LDL Calc [Mass/Vol]Ordered By: Charan Casey on 61-80-5594Etzlemmreoq in LDL [Mass/Vol]56 mg/dL0-100[facility] CenterComment on above:LDL ATP III CLASSIFICATIONLDL less than 100 mg/dL OptimalLDL 100-129 mg/dL Near or above wsefvdqIIH021-716 mg/dL Borderline highLDL 160-189 mg/dL HighLDL greater than 189 mg/dL Very highCholesterol in VLDL Calc [Mass/Vol]Ordered By: Charan Casey on 06-36-6353Khcxjibzclw in VLDL [Mass/Vol]45 mg/dLOhio State University Wexner Medical CenterCreatinine [Mass/volume] in Serum or PlasmaOrdered By: Charan Casey on 24-01-9384Tjwpqboczx [Mass/Vol]1.25 mg/dL0.60-1.20[facility] CenterGlobulin Calc (S) [Mass/Vol] Ordered By: Charan Casey on 81-65-3071Hzekufui (S) [Mass/Vol]2.6 g/dLOhio State University Wexner Medical CenterGlucose [Mass/volume] in Serum or PlasmaOrdered By: Charan Casey on 83-31-0861Qksomdt [Mass/Vol]122 mg/qM46-133GvdvbkabrOhio State University Wexner Medical CenterComment on above:ADA recommended reference rangeRandom Glucose Reference Range is dependent on time and content of last meal. Glucose of more than 200 mg/dL in a nonstressed, ambulatory subject supports the diagnosisof Diabetes Mellitus.No Panel InformationOrdered By: Charan Casey on 28-42-8233Dxmjjhalc GFR (CKD-EPI)48.432 mL/MinOhio State University Wexner Medical CenterPharmacy Creatinine Clearance (ChemN/AFSumma Health Barberton CampusPotassium [Moles/volume] in Serum or PlasmaOrdered By: Charan Casey on 49-75-5933Ulhxblkmh [Moles/Vol]4.6 mmol/L3.5-5.1FSumma Health Barberton CampusProtein [Mass/volume] in Serum or PlasmaOrdered By: Charan Casey on 38-69-5667Tgvqypo [Mass/Vol]6.8 g/dL6.4-8.9 [facility] Centererum or plasma albumin/globulin mass ratio Ordered By: Charan Casey on 33-93-6274Afiiesm/Globulin [Mass ratio]1.6 {ratio} [facility] Centererum or plasma anion gap determinationOrdered By: Charan Casey on 48-26-8169Swnei gap [Moles/Vol]9.0 mmol/L6.0-15.0[facility] Centererum or plasma high density lipoprotein (HDL) cholesterol measurementOrdered By: Charan Casey on 17-23-3099Mkgygczrebz in HDL [Mass/Vol]39 mg/tE86-11SzanctztwOhio State University Wexner Medical CenterComment on above:HDL CHOL ATP-III CLASSIFICATION Cardiovascular RiskHDL > or equal to 60 mg/dL LOWHDL < 40 mg/dL HIGHSerum or plasma total cholesterol/high density lipoprotein (HDL) cholesterol mass ratOrdered By: Charan Casey on 11-26-2023 Cholesterol.total/Cholesterol in HDL [Mass ratio]3.6 {ratio}<5.0[facility] Medical Centerodium [Moles/volume] in Serum or PlasmaOrdered By: Charan Casey on 28-01-2807Ntncwd [Moles/Vol]140 mmol/Y894-559KuotrelopOhio State University Wexner Medical CenterTriglyceride [Mass/volume] in Serum or PlasmaOrdered By: Charan Casey on 69-76-1160Knjqjqpfhbtl [Mass/Vol]227 mg/dL0-149[facility] Comment on above:TRIG ATP III CLASSIFICATIONTRIG less than 150 mg/dL NormalTRIG 150-199 mg/dL Borderline highTRIG 200-500 mg/dL High TRIG greater than 500 mg/dL Very highStandard traceable to the Center for Disease Conrtrol and Prevention (CDC) test method.Urea nitrogen [Mass/volume] in Serum or PlasmaOrdered By: Charan Casey on 02-93-8336Isgj nitrogen [Mass/Vol]32 mg/dL7-[facility] CenterGlucose Glucometer (BldC) [Mass/Vol]Ordered By: Yasmeen Treadwell on 27-64-5655Vvldpvt [Mass/Vol]150 mg/dLOhio State University Wexner Medical CenterComment on above:Random Glucose Reference Range is dependent on time and content of last meal. Glucose of more than 200 mg/dL in a nonstressed, ambulatory subject supports the diagnosis of Diabetes Mellitus.Albumin [Mass/volume] in Serum or Plasma by Bromocresol green (BCG) dye binding methoOrdered By: Elpidio Whipple on 95-23-7820Wavpejy BCG dye [Mass/Vol]4.5 g/dL3.5-5.7FSumma Health Barberton CampusAutomated erythrocytes count in urine sediment (number/area)Ordered By: Elpidio Whipple on 63-56-5036XZL Auto (Urine sed) [#/Area]None seen [HPF]0-4 [facility] CenterAutomated leukocytes count in urine sediment (number/area)Ordered By: Elpidio Whipple on 81-48-8463VHY Auto (Urine sed) [#/Area] 1-2 [HPF]0-4FSumma Health Barberton CampusBilirubin Test strip Ql (U)Ordered By: Elpidio Whipple on 74-51-7122Peagchvht Ql (U)NegativeNegativeOhio State University Wexner Medical CenterCalcium [Mass/volume] in Serum or PlasmaOrdered By: Elpidio Whipple on 05-26-3968Onvsqak [Mass/Vol]9.5 mg/dL8.6-10.3FSumma Health Barberton Campus Carbon dioxide, total [Moles/volume] in Serum or PlasmaOrdered By: Elpidio Whipple on 88-98-4666JU4 [Moles/Vol]29.7 mmol/L21.0-31.0[facility] CenterChloride [Moles/volume] in Serum or PlasmaOrdered By: Elpidio Whipple on 60-19-0358Ymxnjlpk [Moles/Vol]106 mmol/M07-756GywsouyloOhio State University [facility] Center Color Auto (U)Ordered By: Elpidio Whipple on 35-36-9151Tmiwt (U)Dark yellowYellow [facility] CenterCreatinine [Mass/volume] in Serum or Plasma Ordered By: Elpidio Whipple on 72-68-0103Drnebyhsvi [Mass/Vol]1.29 mg/dL0.60-1.20 [facility] CenterCreatinine [Mass/volume] in UrineOrdered By: Elpidio Whipple on 70-37-5926Vzzdodpyum (U) [Mass/Vol]87.0 mg/dL11.0-20.0[facility] CenterErythrocyte distribution width Auto (RBC) [Ratio]Ordered By: Elpidio Whipple on 36-41-8487Tgaflnncfuv distribution width (RBC) [Ratio]13.5 % 11.9-15.3FSumma Health Barberton CampusGlucose [Mass/volume] in Serum or PlasmaOrdered By: Elpidio Whipple on 03-42-2013Dnpoyre [Mass/Vol]97 mg/lP32-436 [facility] CenterComment on above:ADA recommended reference rangeRandom Glucose Reference Range is dependent on time and content of last meal. Glucose of more than 200 mg/dL in a nonstressed, ambulatory subject supports the diagnosisof Diabetes Mellitus.Hematocrit Auto (Bld) [Volume fraction]Ordered By: Elpidio Whipple on 23-88-9656Ikgpilrjza (Bld) [Volume fraction] 42.7 %34.0-46.4FSumma Health Barberton CampusHemoglobin [Mass/volume] in BloodOrdered By: Elpidio Whipple on 14-69-0781Dtovqxssgk (Bld) [Mass/Vol]14.3 g/dL 11.8-15.4FSumma Health Barberton CampusKetones Auto test strip (U) [Mass/Vol] Ordered By: Elpidio Whipple on 40-75-7523Ebjftme (U) [Mass/Vol]NegativeNegative [facility] CenterLaboratory - UrinalysisOrdered By: Elpidio Whipple on 03-62-9795Nsrqoes casts LM Ql (Urine sed)0-8 [LPF]0-8[facility] CenterLeukocytes [#/volume] corrected for nucleated erythrocytes in Blood by Automated counOrdered By: Elpidio Whipple on 66-01-6478MHU corrected for nucl RBC Auto (Bld) [#/Vol]7.7 10*3/uL3.8-11.6FSumma Health Barberton Campus MCH Auto (RBC) [Entitic mass]Ordered By: Elpidio Whipple on 54-30-3789GAP (RBC) [Entitic mass]29.1 pg24.7-34.3FSumma Health Barberton CampusMCHC Auto (RBC) [Mass/Vol]Ordered By: Elpidio Whipple on 94-41-4750ZHMK (RBC) [Mass/Vol]33.6 g/dL 32.0-35.0[facility] CenterMCV Auto (RBC) [Entitic vol]Ordered By: Elpidio Whipple on 87-84-8571VRA (RBC) [Entitic vol]86.5 nH10-247PfnetawxuOhio State University Wexner Medical CenterMagnesium [Mass/volume] in Serum or PlasmaOrdered By: Elpidio Zarater on 70-81-5012Vnxkmqcyw [Mass/Vol]1.9 mg/dL1.9-2.7FSumma Health Barberton CampusNitrite Test strip Ql (U)Ordered By: Elpidio Whipple on 09-14-2023 Nitrite Ql (U)NegativeNegativeOhio State University Wexner Medical CenterNo Panel InformationOrdered By: Elpidio Whipple on 56-39-4593Etcoxoopa GFR (CKD-EPI)46.926 mL/MinOhio State University Wexner Medical CenterPharmacy Creatinine Clearance (ChemN/A [facility] CenterParathyrin.intact [Mass/volume] in Serum or PlasmaOrdered By: Elpidio Whipple on 80-66-1880Sufaghfbfb.intact [Mass/Vol]133.6 pg/nQ20-50JtokuexznOhio State University Wexner Medical CenterPhosphate [Mass/volume] in Serum or PlasmaOrdered By: Elpidio Whipple on 73-53-6904Lfcqgcgqf [Mass/Vol]3.4 mg/dL3.7-7.2 [facility] CenterPlatelet mean volume Auto (Bld) [Entitic vol] Ordered By: Elpidio Whipple on 02-21-9253Yovgtszw mean volume (Bld) [Entitic vol] 10.0 fL6.3-10.7FSumma Health Barberton CampusPlatelets Auto (Bld) [#/Vol] Ordered By: Elpidio Zarater on 37-67-1310Xnhnafudy (Bld) [#/Vol]193 10*3/kO181-899 [facility] CenterPotassium [Moles/volume] in Serum or Plasma Ordered By: Elpidio Whipple on 68-69-5333Iwihykjrj [Moles/Vol]4.7 mmol/L3.5-5.1 [facility] CenterProtein Auto test strip (U) [Mass/Vol]Ordered By: Elpidio Whipple on 74-38-1683Jkhzgkj (U) [Mass/Vol]NegativeNegativeOhio State University Wexner Medical CenterProtein [Mass/volume] in UrineOrdered By: Elpidio Silvadir on 24-99-7699Fmbpdvs (U) [Mass/Vol]12 mg/dL0-9[facility] CenterRBC Auto (Bld) [#/Vol]Ordered By: Elpidio Whipple on 98-96-9945SPT (Bld) [#/Vol]4.93 10*6/uL3.60-5.00[facility] Centererum or plasma anion gap determinationOrdered By: Elpidio Whipple on 58-07-2838Jvwuj gap [Moles/Vol]11.0 mmol/L6.0-15.0[facility] Centerodium [Moles/volume] in Serum or PlasmaOrdered By: Elpidio Whipple on 18-80-4181Psjvnv [Moles/Vol]142 mmol/P990-134 [facility] Centerpecific gravity Auto test strip (U) [Rel density]Ordered By: Elpidio Whipple on 00-77-2815Bjpngxzi gravity (U) [Rel density] 1.0201.001-1.030[facility] Centerquamous epithelial cells detection in urine sediment by light microscopyOrdered By: Elpidio Whipple on 01-94-1803Cxizyuqspy cells.squamous LM Ql (Urine sed)3-4 [HPF]0-2FSumma Health Barberton CampusUrate [Mass/volume] in Serum or PlasmaOrdered By: Elpidio Whipple on 68-20-0241Hsebr [Mass/Vol]6.2 mg/dL2.3-6.6FSumma Health Barberton CampusUrea nitrogen [Mass/volume] in Serum or PlasmaOrdered By: Elpidio Sole on 57-77-5003Mprq nitrogen [Mass/Vol]46 mg/dL7-25[facility] Urine bacteria detection by automated methodOrdered By: Elpidio Whipple on 85-31-6805Qqyzdwdn Auto Ql (U)None seenNone SeenOhio State University Wexner Medical CenterUrine clarity by refractometry automatedOrdered By: Elpidio Whipple on 46-37-9169Fefxbxc Refractometry automated (U)ClearClearFSumma Health Barberton CampusUrine glucose measurement by automated test strip (mass/volume) Ordered By: Elpidio Sole on 14-44-4796Hbjpkft Auto test strip (U) [Mass/Vol] Normal mg/dLNoTriHealth Good Samaritan HospitalUrine hemoglobin detection by automated test stripOrdered By: Elpidio Silvadir on 03-63-1077Rhfngrvbpp Auto test strip Ql (U)NegativeNegativeOhio State University Wexner Medical CenterUrine leukocyte esterase detection by automated test stripOrdered By: Elpidio Whipple on 09-14-2023 Leukocyte esterase Auto test strip Ql (U)1+NegativeOhio State University Wexner Medical CenterUrine protein/creatinine ratioOrdered By: Elpidio Sole on 09-14-2023 Protein/Creatinine (U) [Ratio]138 mg/g{Cre}0-200[facility] CenterUrobilinogen Auto test strip (U) [Mass/Vol]Ordered By: Elpidio Whipple on 77-56-6803Qmddattcmtjs (U) [Mass/Vol]Normal mg/dLNoTriHealth Good Samaritan HospitalVitamin D+Metabolites [Mass/volume] in Serum or PlasmaOrdered By: Elpidio Sole on 19-08-9047Oldoibg D+Metabolites [Mass/Vol]50.6 ng/mB19-075 [facility] CenterComment on above:VITAMIN D STATUS 25(OH)VITAMIN D RANGE (ng/mL) Deficient <20 Insufficient 20 to <77Lhrevuzugz39 to 100Reference: Nayeli MF,Hannah NC, Jose GILBERT, et al. Evaluation,treatment, and prevention of vitamin D deficiency; an Endocrine Society clinical practice guideline. JCEM. 2010; 96(7):1911-30.pH Auto test strip (U)Ordered By: Elpidio Silvadir on 84-17-6671cJ (U)5.5 [pH]5.0-9.0[facility] CenterUrine 10 SGon 35-76-0566Kpcwaab DL <= 20 mg/L (U) [Mass/Vol]NegativeNomineral area regional medical center [employer] Other pH (U)6.0 [pH][place] [employer] Other Urine 10 SGNegativeNomineral area regional medical center [employer] Other Urine 10 SG1.010Nort [employer] Other Urine 10 SG0.2North [employer] Other Height or Weight NOT Doneon 85-09-5340Glsvi depression screening assessmentNoSt. Clare Hospital [employer] DO Work Phone: Fall risk assessmenta) No falls within the last year [facility] [employer] DO Work Phone: Tobacco use status CPHSb) NoMNorthern State Hospital [employer] DO Work Phone: Office Visit (Cardiology)on 48-56-5386Sgmmks-up visit Diagnoses/Problems Assessed CAD (coronary artery disease) [...] any trouble since her angioplasty. She has Smedabz-Anxqi-Kqgqt disease and had recent surgery on the [...] machine patient has been compliant with it. 7?Lhxpfnp-Lihsl-Cxptz joint in the ankles status post recent [...] TABLET DAILY. Vitamin D (Ergocalciferol) 1.25 MG (86186 UT) Oral CapsuleTake 1 tablet twice weekly Allergies Medication Erythromycin Base TABS Adverse Reaction; Gatrointestinal upset; Updated By: Adrianna Emanuel; (more content not included)...NormalUH [facility]– ArcadiaPOINT OF CARE GLUCOSEon 04-13-2023 Glucose [Mass/Vol]215 mg/dLCritically uwul30-568Yqa [facility] HospitalComment on above:Performed By: #### POCGLUC ####[facility] [address] [address]DrDerek SotoPROF CHEM 8 (BAS METB)on 03-31-2023 Anion gap [Moles/Vol]9.6 mmol/LNormalCleveland Clinic Euclid HospitalComment on above: Performed By: #### BMP ####[facility] [address] [address]DrBalaji SotoCalcium [Mass/Vol]10.3 mg/dLCritically high8.5-10.1The [facility] HospitalComment on above:Performed By: #### BMP ####[facility] [address] [place], [place] [address]Dr. Tere ChangChloride [Moles/Vol]103 mmol/OEtjnxf24-941Zus [facility] Comment on above:Performed By: #### BMP ####[facility] [address] [place], [place] [address]Dr.Tere ChangCO2 [Moles/Vol]31.0 mmol/L Idvjwl44.0-32.0The [facility] HospitalComment on above:Performed By: #### BMP ####[facility] [address] [place], [place] [address]Dr. Tere ChangCreatinine [Mass/Vol]1.48 mg/dLCritically high0.55-1.02The [facility] HospitalComment on above:Performed By: #### BMP ####[facility] [address] [place], [place] [address]Dr.Tere ChangEGFR-AF MEVERERF57 mL/min/1.12n1Rlesfzxrml low>=60The [facility] HospitalComment on above: Performed By: #### BMP ####[facility] [address] [place], [place] [address]Dr.Tere ChangEGFR-NON AF JKFYJUPG61 mL/min/1.73m2 Critically low>=60The [facility] HospitalComment on above:Performed By: #### BMP ####[facility] [address] [place], [place] [address]Dr. Tere ChangGlucose [Mass/Vol]173 mg/dLCritically rgfg65-937Eik [facility] Comment on above:Performed By: #### BMP ####[facility] [address] [place], [place] [address]Dr.Tere ChangPotassium [Moles/Vol]4.6 mmol/LNormal3.5-5.1The [facility] HospitalComment on above:Performed By: #### BMP ####[facility] [address] [place], [place] [address]Dr. Tere ChangSodium [Moles/Vol]139 mmol/NCmtnxu411-014Ktu [facility] HospitalComment on above:Performed By: #### BMP ####[facility] [address] [place], [place] [address]Gx.Tere ChangUrea nitrogen [Mass/Vol]63.0 mg/dL Critically high7.0-18.0The [facility] HospitalComment on above:Performed By: #### BMP ####[facility] [address] [place], [place] [address]Tl. Tere ChangUrea nitrogen/Creatinine [Mass ratio]42.6 mg/mgNoLake County Memorial Hospital - WestComment on above:Performed By: #### BMP ####[facility] [address] [place], [place] [address]Tk.Tere ChangCT FOOT LT WO CONon 35-99-5895EK FOOT LT WO CONEXAMINATION: CT FOOT LT [...] Electronically authenticated by: BLANKA OLGUIN Date: 2023-03-23 14:59[facility] WestAlbumin [Mass/volume] in Serum or Plasma by Bromocresol green (BCG) dye binding methoOrdered By: Elpidio Whipple on 54-46-1520Knehjjt BCG dye [Mass/Vol]4.7 g/dL3.5-5.7FSumma Health Barberton CampusAutomated erythrocytes count in urine sediment (number/area)Ordered By: Elpidio Whipple on 86-85-8036YEV Auto (Urine sed) [#/Area]None seen [HPF]0-4FSumma Health Barber[facility] Campus Automated leukocytes count in urine sediment (number/area)Ordered By: Elpidio Whipple on 05-15-7130KIY Auto (Urine sed) [#/Area]5-9 [HPF]0-4FSumma Health Barberton CampusBilirubin Test strip Ql (U)Ordered By: Elpidio Whipple on 03-06-2023 Bilirubin Ql (U)NegativeNegativeOhio State University Wexner Medical CenterCalcium [Mass/volume] in Serum or PlasmaOrdered By: Elpidio Whipple on 18-82-1522Ecyrwuq [Mass/Vol]10.2 mg/dL8.6-10.3FSumma Health Barberton CampusCarbon dioxide, total [Moles/volume] in Serum or PlasmaOrdered By: Elpidio Whipple on 66-98-9714SD6 [Moles/Vol]28.4 mmol/L21.0-31.0[facility] CenterChloride [Moles/volume] in Serum or PlasmaOrdered By: Elpidio Whipple on 81-59-2487Qxgdyfmy [Moles/Vol]104 mmol/Z63-042QxqhdwwavOhio State University Wexner Medical CenterColor Auto (U) Ordered By: Elpidio Whipple on 39-54-2001Exegv (U)Dark yellowYellowOhio State University Wexner Medical CenterCreatinine [Mass/volume] in Serum or PlasmaOrdered By: Elpidio Whipple on 19-89-6968Ogxkzbahmb [Mass/Vol]1.22 mg/dL0.60-1.20[facility] CenterCreatinine [Mass/volume] in UrineOrdered By: Elpidio Whipple on 02-67-2343Ohtveddtwj (U) [Mass/Vol]98.0 mg/dLOhio State University Wexner Medical CenterComment on above:No reference range establishedErythrocyte distribution width Auto (RBC) [Ratio]Ordered By: Elpidio Whipple on 42-80-5663Rkekshmfeik distribution width (RBC) [Ratio]13.8 %11.9-15.3FSumma Health Barber[facility] Campus Glucose [Mass/volume] in Serum or PlasmaOrdered By: Elpidio Whipple on 03-06-2023 Glucose [Mass/Vol]101 mg/aL00-321VpzuswkgtOhio State University Wexner Medical CenterComment on above:ADA recommended reference rangeRandom Glucose Reference Range is dependent on time and content of last meal. Glucose of more than 200 mg/dL in a nonstressed, ambulatory subject supports the diagnosisof Diabetes Mellitus. Hematocrit Auto (Bld) [Volume fraction]Ordered By: Elpidio Whipple on 03-06-2023 Hematocrit (Bld) [Volume fraction]38.1 %34.0-46.4FSumma Health Barberton CampusHemoglobin [Mass/volume] in BloodOrdered By: Elpidio Whipple on 03-06-2023 Hemoglobin (Bld) [Mass/Vol]12.7 g/dL11.8-15.4FSumma Health [facility] Campus Ketones Auto test strip (U) [Mass/Vol]Ordered By: Elpidio Whipple on 03-06-2023 Ketones (U) [Mass/Vol]NegativeNegativeOhio State University [facility] Center Laboratory - UrinalysisOrdered By: Elpidio Whipple on 92-02-3141Ymlxdur casts LM Ql (Urine sed)0-8 [LPF]0-8[facility] CenterLeukocytes [#/volume] corrected for nucleated erythrocytes in Blood by Automated counOrdered By: Elpidio Whipple on 81-43-5997ERV corrected for nucl RBC Auto (Bld) [#/Vol]5.4 10*3/uL 3.8-11.6FFirelands Regional Medical Center South CampusH Auto (RBC) [Entitic mass]Ordered By: Elpidio Whipple on 21-74-1853JDH (RBC) [Entitic mass]28.1 pg24.7-34.3FSumma Health Barberton CampusMCHC Auto (RBC) [Mass/Vol]Ordered By: Elpidio Whipple on 32-02-4078ISNN (RBC) [Mass/Vol]33.3 g/dL32.0-35.0[facility] CenterMCV Auto (RBC) [Entitic vol]Ordered By: Elpidio Whipple on 46-24-2557VNX (RBC) [Entitic vol]84.5 rR17-336AibsxpdaiOhio State University Wexner Medical CenterMagnesium [Mass/volume] in Serum or PlasmaOrdered By: Elpidio Whipple on 16-53-9317Bouvfrxgy [Mass/Vol]1.5 mg/dL1.9-2.7FSumma Health Barberton CampusNitrite Test strip Ql (U)Ordered By: Elpidio Whipple on 97-54-7584Uqbvtie Ql (U)NegativeNegativeOhio State University Wexner Medical CenterNo Panel InformationOrdered By: Elpidio Whipple on 60-29-8409Ipczvppry GFR (CKD-EPI)50.176 mL/MinOhio State University [facility] Medical Center Pharmacy Creatinine Clearance (ChemN/[facility] Parathyrin.intact [Mass/volume] in Serum or PlasmaOrdered By: Elpidio Whipple on 22-16-4213Dyvaizwsli.intact [Mass/Vol]43.8 pg/jZ32-89XcvtdxyuvOhio State University Wexner Medical CenterPhosphate [Mass/volume] in Serum or PlasmaOrdered By: Elpidio Whipple on 08-56-5522Ywvxvicyo [Mass/Vol]4.3 mg/dL3.7-7.2FSumma Health Barber[facility] Campus Platelet mean volume Auto (Bld) [Entitic vol]Ordered By: Elpidio Whipple on 76-67-8570Hlzlxrch mean volume (Bld) [Entitic vol]8.7 fL6.3-10.7FSumma Health Barberton CampusPlatelets Auto (Bld) [#/Vol]Ordered By: Elpidio Whipple on 64-44-3210Mbkvpwplr (Bld) [#/Vol]191 10*3/nG980-730HiyjzipryOhio State University Wexner Medical CenterPotassium [Moles/volume] in Serum or PlasmaOrdered By: Elpidio Whipple on 62-76-5147Kwyqaqmay [Moles/Vol]4.0 mmol/L3.5-5.1FSumma Health Barberton CampusProtein Auto test strip (U) [Mass/Vol]Ordered By: Elpidio Whipple on 93-30-9810Wctiync (U) [Mass/Vol]NegativeNegativeOhio State University Wexner Medical CenterProtein [Mass/volume] in UrineOrdered By: Elpidio Whipple on 39-66-5276Xmopvgy (U) [Mass/Vol]8 mg/dL0-9[facility] Medical CenterRBC Auto (Bld) [#/Vol] Ordered By: Elpidio Whipple on 47-44-5333NIL (Bld) [#/Vol]4.51 10*6/uL3.60-5.00 [facility] Centererum or plasma anion gap determinationOrdered By: Elpidio Whipple on 06-09-5383Tjmip gap [Moles/Vol]12.6 mmol/L6.0-15.0[facility] Centerodium [Moles/volume] in Serum or PlasmaOrdered By: Elpidio Whipple on 31-23-8286Jyhwsa [Moles/Vol]141 mmol/U175-989EgnxnnltcLouis Stokes Cleveland VA Medical Centerpecific gravity Auto test strip (U) [Rel density]Ordered By: Elpidio Whipple on 30-60-0919Auqguwel gravity (U) [Rel density]1.0171.001-1.030 [facility] Centerquamous epithelial cells detection in urine sediment by light microscopyOrdered By: Elpidio Whipple on 31-09-4063Gynewkhjha cells.squamous LM Ql (Urine sed)5-9 [HPF]0-2FSumma Health Barberton Campus Urate [Mass/volume] in Serum or PlasmaOrdered By: Elpidio Whipple on 10-97-9924Minjn [Mass/Vol]6.7 mg/dL2.3-6.6FSumma Health Barberton CampusUrea nitrogen [Mass/volume] in Serum or PlasmaOrdered By: Elpidio Whipple on 95-69-5030Vrtw nitrogen [Mass/Vol]37 mg/dL7-25[facility] CenterUrine bacteria detection by automated methodOrdered By: Elpidio Whipple on 02-99-4596Zfftcsha Auto Ql (U)None seenNone SeenOhio State University Wexner Medical CenterUrine clarity by refractometry automatedOrdered By: Elpidio Whipple 99-93-2723Ikbzqzb Refractometry automated (U)ClearClearFSumma Health Barberton CampusUrine culture routineOrdered By: Elpidio Whipple on 80-75-5004Lglznaad identified Cx Nom (U)2 DaysOhio State University Wexner Medical CenterUrine glucose measurement by automated test strip (mass/volume)Ordered By: Elpidio Whipple on 47-21-6851Xlhazgz Auto test strip (U) [Mass/Vol]Normal mg/dLNoTriHealth Good Samaritan HospitalUrine hemoglobin detection by automated test stripOrdered By: Elpidio Whipple on 81-71-9019Wjbfqwmxxr Auto test strip Ql (U)NegativeNegativeOhio State University Wexner Medical CenterUrine leukocyte esterase detection by automated test stripOrdered By: Elpidio Whipple on 90-57-6705Fuvavqued esterase Auto test strip Ql (U)2+Negative [facility] CenterUrine protein/creatinine ratioOrdered By: Elpidio Whipple on 35-62-3165Mshljjc/Creatinine (U) [Ratio]82 mg/g{Cre}0-200[facility] Medical CenterUrobilinogen Auto test strip (U) [Mass/Vol]Ordered By: Elpidio Whipple on 82-40-8773Jktxteyykcaz (U) [Mass/Vol]Normal mg/dLNoTriHealth Good Samaritan HospitalVitamin D+Metabolites [Mass/volume] in Serum or Plasma Ordered By: Elpidio Whipple on 07-70-7814Hlljmcq D+Metabolites [Mass/Vol]46.0 ng/mL 30-100[facility] CenterComment on above:VITAMIN D STATUS 25(OH)VITAMIN D RANGE (ng/mL) Deficient <20 Insufficient 20 to <59Hfvjmjjzor25 to 100Reference: Nayeli MF,Hannah NC, Jose GILBERT, et al. Evaluation,treatment, and prevention of vitamin D deficiency; an Endocrine Society clinical practice guideline. JCEM. 2010; 96(7):1911-30.pH Auto test strip (U)Ordered By: Elpidio Whipple on 33-97-3991vV (U)5.5 [pH]5.0-9.0[facility] CenterXR FOOT LAURA MIN 3 VIEWSon 36-68-1446ZI FOOT LAURA MIN 3 VIEWSEXAMINATION: XR FOOT [...] Electronically authenticated by: BRODERICK FLOR Date: 2023-02-17 14:34NoPremier Health [facility] AUTO DIFFon 84-03-4519KVGK #0.0 103/ulNormal0.0-0.1[facility]ucl[facility] HospitalComment on above:Performed By: #### CBC #### [facility] [address] [place] [address] Dr. Tere SotoBasophils/100 WBC (Bld)0.6 %Normal0.2-2.0[facility] Comment on above:Performed By: #### CBC #### [facility] [address] [place] [address] Dr. Tere Barksdale #0.1 103/ulNormal0.0-0.7ThKettering Health Greene MemorialComment on above: Performed By: #### CBC #### [facility] [address] [place] [address] Dr. Tere Mendezosinophils/100 WBC (Bld)2.9 %Normal0.9-7.0[facility] Comment on above:Performed By: #### CBC #### [facility] [address] [place] [address] Dr. Yilan ChangErythrocyte distribution width (RBC) [Ratio]13.2 %Lcixer71.0-15.0 The [facility] HospitalComment on above:Performed By: #### CBC #### [facility] [address] [place] [address] Dr. Tere SotoHematocrit (Bld) [Volume fraction]39.0 %Tzefre62.0-48.0The [facility] HospitalComment on above:Performed By: #### CBC #### [facility] [address] [place] [address] Dr. Tere SotoHemoglobin (Bld) [Mass/Vol]13.0 g/dVFkjwta41.0-16.0The [facility] HospitalComment on above:Performed By: #### CBC #### [facility] [address] [place] [address] Dr. Tere Carolina #0.01 10e3/ulNormal0.00-0.03The [facility] HospitalComment on above:Performed By: #### CBC #### [facility] [address] [place] [address] Dr. Tere Carolina %0.2 %Normal0.0-0.5The [facility] HospitalComcaro center on above: Performed By: #### CBC #### [facility] [address] [place] [address] Dr. Tere MendietaH #2.1 103/ulNormal1.2-3.8The [facility] HospitalComment on above:Performed By: #### CBC #### [facility] [address] [place] [address] Dr. Tere Escamillamphocytes/100 WBC (Bld)42.6 %Jwqfju99.5-60.0The [facility] HospitalComment on above:Performed By: #### CBC #### [facility] [address] [place] [address] Dr. Tere SmithUAL DIFF REQNONormalThe Wayne HospitalComment on above: Performed By: #### CBC #### [facility] [address] [place] [address] Dr. Tere Lomeli (RBC) [Entitic mass]28.4 liWonztd42.7-34.0The [facility] HospitalComment on above:Performed By: #### CBC #### [facility] [address] [place] [address] Dr. Tere Lomeli (RBC) [Mass/Vol]33.3 g/aBRuxqba51.9-35.2The [facility] HospitalComment on above:Performed By: #### CBC #### [facility] [address] [place] [address] Dr. Tere Lomeli (RBC) [Entitic vol]85.2 mVDcucvt51.0-99.0The [facility] HospitalComment on above:Performed By: #### CBC #### [facility] [address] [place] [address] Dr. Tere Tsai #0.3 103/ulNormal0.3-0.8The [facility] HospitalComment on above:Performed By: #### CBC #### [facility] [address] [place] [address] Dr. Tere Hillocytes/100 WBC (Bld)6.8 %Normal1.7-12.0[facility] Comment on above:Performed By: #### CBC #### [facility] [address] [place] [address] Dr. Tere Green #2.3 103/ulNormal1.4-6.5The [facility] HospitalComment on above:Performed By: #### CBC #### [facility] [address] [place] [address] Dr. Tere Velezutrophils/100 WBC (Bld)46.9 %Svwaki71.0-75.0The [facility] HospitalComment on above:Performed By: #### CBC #### [facility] [address] [place] [address] Dr. Tere Hernandezlet mean volume (Bld) [Entitic vol]11.3 fLNormal9.5-13.5The [facility] HospitalComment on above:Performed By: #### CBC #### [facility] [address] [place] [address] Dr. Tere SotoPLT183 103/niMwitqh456-182Atl Wayne HospitalComment on above: Performed By: #### CBC #### [facility] [address] [place] [address] Dr. Tere SotoRBC4.58 106/ulNormal4.20-5.40The [facility] HospitalComment on above:Performed By: #### CBC #### [facility] [address] [place] [address] Dr. Tere SotoWBC4.8 103/ulNormal4.0-11.0The [facility] HospitalComment on above: Performed By: #### CBC #### [facility] [address] [place] [address] Dr. Tere Rodriguez-19 PCR (CVDTBH)on 52-69-5375VKJA-CoV-2 (COVID-19) RNA AHMET+probe Ql (Unsp spec)Not detectedNormalNOT DETECTEDThe [facility] Comment on above:Result Comment: This test is not yet approved or cleared by the [place] FDA. When there are no FDA-approved or cleared tests available, and other criteria are met, FDA can make tests available under an emergency access mechanism called an Emergency Use Authorization (EUA). The EUA for this test is supported by the [place] of Health and Human Service's (HHS's) declaration [...] consistent with SARS-CoV-2.Performed By: #### CVDTBH #### [facility] [address] [place] [address] Dr. Tere DarnellF CHEM 8 (BAS METB)on 48-77-5715Feldn gap [Moles/Vol]13.6 mmol/LNormalThe Wayne HospitalComment on above:Performed By: #### BMP #### [facility] [address] [address] [address] Tere SotoCalcium [Mass/Vol]9.6 mg/dLNormal8.5-10.1[facility] Comment on above:Performed By: #### BMP #### [facility] [address] [address] [address] Tere SotoChloride [Moles/Vol]103 mmol/KChfsfz74-771Gfc [facility] Comment on above:Performed By: #### BMP #### [facility] [address] [place] [address] Dr. Tere SotoCO2 [Moles/Vol]28.9 mmol/GDixasl78.0-32.0[facility] Comment on above:Performed By: #### BMP #### [facility] [address] [address] [address] Tere SotoCreatinine [Mass/Vol]1.25 mg/dLCritically high0.55-1.02The Wayne HospitalComment on above:Performed By: #### BMP #### [facility] [address] [place] [address] Dr. Carranza ChangEGFR-AF TRYDWPGN54 mL/min/1.50i7Xecvkixddq low>=60The Wayne HospitalComment on above:Performed By: #### BMP #### [facility] [address] [place] [address] Dr. Tere MendezGFR-NON AF ACATKIMF35 mL/min/1.98h2Vdlaaxofpj low>=60The Wayne HospitalComment on above:Performed By: #### BMP #### [facility] [address] [place] [address] Dr. Tere SotoGlucose [Mass/Vol]121 mg/dLCritically ubgd40-047Gwy Wayne HospitalComment on above:Performed By: #### BMP #### [facility] [address] [address] [address] Tere SotoPotassium [Moles/Vol]4.5 mmol/LNormal3.5-5.1[facility] Comment on above:Performed By: #### BMP #### [facility] [address] [address] [address] Tere SotoSodium [Moles/Vol]141 mmol/NPbmnsh033-434Dcf [facility] Comment on above:Performed By: #### BMP #### [facility] [address] [address] [address] Tere SotoUrea nitrogen [Mass/Vol]43.0 mg/dLCritically high7.0-18.0The Wayne HospitalComment on above:Performed By: #### BMP #### [facility] [address] [address] [address] Tere SotoUrea nitrogen/Creatinine [Mass ratio]34.4 mg/mgNoCleveland Clinic Fairview Hospitale Wayne HospitalComment on above:Performed By: #### BMP #### [facility] [address] [address] [address] Tere HumphriesIMEmarisela 80-31-6601QMS Coag (PPP) [Relative time]{INR}NormalThe Wayne HospitalComment on above:Performed By: #### PT, PTT ####[facility] [address] [address]Dr. Tere Seaman GUIDELINESSEE BELOWRegency Hospital Cleveland WestComment on above:Result Comment: DESIRED INR: 2.0 - 3.0 CONDITIONS NOT LISTED BELOW 2.5 - 3.5 FOR PROSTHETIC HEART VALVE REPLACEMENT 2.5 - 3.5 RECURRENT THROMBOSISPerformed By: #### PT, PTT ####[facility] [address] [address]Dr. Tere SotoPT Coag (PPP) [Time]9.8 sNormal9.0-11.6The Wayne HospitalComment on above:Performed By: #### PT, PTT ####[facility] [address] [address]Dr. Tere Cartagena 65-36-2206hVIA Coag (Bld) [Time]26.5 nZodrww54.3-36.2[facility] HospitalComment on above:Performed By: #### PT, PTT ####[facility] [address] [place], [place] [address]JbDerek Carranza ChangCT FOOT LT WO CONon [id number] FOOT LT WO CONEXAMINATION: CT FOOT LT [...] Electronically authenticated by: BRODERICK FLOR Date: 2022-11-26 16:36[facility] WestXR ANKLE LAURA MIN 3 VIEWSon 23-44-5583KK ANKLE LAURA MIN 3 VIEWS EXAMINATION: XR [...] Electronically authenticated by: BLANKA OLGUIN Date: 2022-11-13 06:32[facility] Westice Visit (Cardiology)on 83-80-8934Uxmmvi-up visit Diagnoses/Problems Assessed CAD (coronary artery disease) (414.00) (I25.10) Essential hypertension (401.9) (I10) Hyperlipidemia (272.4) (E78.5) 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 (V45.82) (Z95.5) LAD February 2022 Diabetes mellitus (250.00) (E11.9) Obstructive sleep apnea syndrome (327.23) (G47.33) Never a smoker Class 2 obesity with body mass index (BMI) of 36.0 to 36.9 in adult (278.00,V85.36) (E66.9,Z68.36) Qviqawy-Tajdz-Vairr disease (356.1) (G60.0) Orders CAD (coronary artery [...] Aminotransferase, Serum; Status:Active - Retrospective Authorization; Requested for:42Bmr1305 09:18AM; AST; Status:Active - Retrospective Authorization; Requested for:10Feb2023 09:18AM; Lipid Panel; Status:Active - Retrospective Authorization; Requested for:65Jpo1532 09:18AM; Class 2 obesity with body mass index (BMI) of 36.0 to 36.9 in adult Healthy Weight Tips; Status:Complete - Retrospective Authorization; Done: 46Izl0138 Some eating tips that can help you lose weight.; Status:Complete - Retrospective Authorization; Done: 44Ezu8157 SocHx: Never a smoker Tobacco Use Screening; Status:Complete; Done: 96Xjr8851 Patient Instructions Please bring all medicines, vitamins, [...] Since her last visit she has developed Hpygpmp-Loubk-Yjibd joint in the left foot and is planning surgery next month. Cardiac wiseshe has remained symptoms free. Recent lab data were reviewed from July 2022. LDL remains skfv089 mg/dL. She has been only on Lovaza [...] machine patient has been compliant with it. 7?Fuekhtl-Uswec-Yyucg joint in the left ankle and need [...] content not included)...NormalUH Touchworks Culture, MRSA Screenon 71-54-8675Iujhqsk, MRSA ScreenCulture, MRSA Screen-: Methicillin resistant Staph aureus not isolatedNormalSEmerson HospitalHgb A1Con 50-44-6546XnE4r (Bld) [Mass fraction]7.1 %High4.0-5.6[facility] Hospitaledimentation Rateon 77-01-5257Otsqetbowlmis Rate44 mm/Hr High0-20SEmerson HospitalC-Reactive Proteinon 15-61-0124V-Reactive Protein0.4 mg/dLNormal0.0-0.4SEmerson HospitalCBC With Platelet and Differentialon 14-52-8364Usn Imm Granulocytes0.01 E9/LNormalFuller HospitalAbsolute Basophils0.05 E9/LNormal0.00-0.20SEmerson HospitalAbsolute Eosinophils0.15 E9/LNormal0.05-0.50[facility] Absolute Lymphocytes2.20 E9/LNormal1.50-4.00[facility] Absolute Monocytes0.35 E9/LNormal0.10-0.95[facility] HospitalAbsolute Neutrophils1.88 E9/LNormal1.80-7.30SEmerson HospitalBasophils/100 WBC (Bld)1.1 %Normal0.0-2.0[facility]er HospitalEosinophils/100 WBC (Bld)3.2 %Normal0.0-6.0[facility]er HospitalHematocrit (Bld) [Volume fraction]36.9 %Qhmzex83.0-48.0[facility] HospitalHemoglobin (Bld) [Mass/Vol]12.4 g/gEDsmvon80.5-15.5SEmerson HospitalImm Granulocytes 0.2 %Normal0.0-5.0[facility]er HospitalLymphocytes/100 WBC (Bld)47.4 % High20.0-42.0[facility]er HospitalMCH (RBC) [Entitic mass]29.7 pgNormal 26.0-35.0[facility]er HospitalMCHC33.6 %Dtuvzx65.0-34.5SEmerson HospitalMCV (RBC) [Entitic vol]88.3 oAAfcewh43.0-99.9[facility] HospitalMonocytes/100 WBC (Bld)7.5 %Normal2.0-12.0[facility] Neutrophils/100 WBC (Bld)40.6 %Low43.0-80.0[facility]er HospitalPlatelet Okpys300 E9/NFwsveb579-705IjirmFuller HospitalPlatelet mean volume (Bld) [Entitic vol]11.7 fLNormal7.0-12.0[facility] HospitalRBC4.18 E12/LNormal3.50-5.50Fuller HospitalRDW13.3 gXXqzpwf08.5-15.0[facility] HospitalWBC4.6 E9/LNormal4.5-11.5SEmerson Hospital Comprehensive Metabolic Panelon 02-87-7960Etyxoqa [Mass/Vol]4.3 g/dLNormal 3.5-5.2SEmerson HospitalALP [Catalytic activity/Vol]71 U/LNormal 35-104Fuller HospitalALT [Catalytic activity/Vol]12 U/LNormal0-32 Fuller HospitalAnion gap [Moles/Vol]10 mmol/LNormal7-16SEmerson HospitalAST [Catalytic activity/Vol]19 U/LNormal0-31Fuller HospitalBilirubin [Mass/Vol]0.3 mg/dLNormal0.0-1.2SEmerson HospitalCalcium [Mass/Vol]10.3 mg/dLHigh8.6-10.2SEmerson HospitalChloride [Moles/Vol]103 mmol/EPbojtt96-462SlqslFuller HospitalCO2 [Moles/Vol]27 mmol/XVlvdsv19-74JivbyFuller HospitalCreatinine [Mass/Vol]1.2 mg/dLHigh0.5-1.0Fuller HospitalGFR/1.73 sq M.predicted among non-blacks MDRD (S/P/Bld) [Vol rate/Area]51 mL/min/{1.73_m2} Normal>=60Fuller HospitalComment on above:Result Comment: Pediatric calculator link [...] that affects renal tubular secretion.Glucose [Mass/Vol]111 mg/dLHigh 74-99Fuller HospitalPotassium [Moles/Vol]4.6 mmol/LNormal3.5-5.0 Fuller HospitalProtein [Mass/Vol]7.3 g/dLNormal6.4-8.3SEverett Hospitalodium [Moles/Vol]140 mmol/DNgxqfy997-834EuovnFuller HospitalUrea nitrogen [Mass/Vol]30 mg/dLHigh6-23SaBoston Home for IncurablesAlbumin [Mass/volume] in Serum or PlasmaOrdered By: Charan Casey on 32-50-3526Dhxowzg [Mass/Vol]3.9 g/dL3.2-5.5FSumma Health [facility] Campus Automated erythrocytes count in urine sediment (number/area)Ordered By: Elpidio Whipple on 41-28-8864ERK Auto (Urine sed) [#/Area]0-1 [HPF]0-4FSumma Health Barberton CampusAutomated leukocytes count in urine sediment (number/area)Ordered By: Elpidio Whipple on 45-39-9768UXP Auto (Urine sed) [#/Area]None seen [HPF]0-4 [facility] CenterBasophils Auto (Bld) [#/Vol]Ordered By: Charan Casey on 41-67-6121Xcyicnukz (Bld) [#/Vol]0.1 10*3/uL0.0-0.2FSumma Health Barberton CampusBasophils/100 WBC Auto (Bld)Ordered By: Charan Casey on 08-13-2022 Basophils/100 WBC (Bld)1.0 %.[facility] CenterBilirubin Test strip Ql (U)Ordered By: Elpidio Whipple on 98-03-6472Ajwbeuezv Ql (U)Negative NegativeOhio State University Wexner Medical CenterCholesterol [Mass/volume] in Serum or PlasmaOrdered By: Charan Casey on 54-54-8763Chjmasoqwwn [Mass/Vol]170 mg/kJ821-455 [facility] CenterComment on above:Chol less than 200 mg/dl low riskChol 201-239 mg/dl borderline riskChol 240 mg/dl and greater high risk Cholesterol in LDL Calc [Mass/Vol]Ordered By: Charan Casey on 08-13-2022 Cholesterol in LDL [Mass/Vol]101 mg/dL0-100[facility] Comment on above:LDL ATP III CLASSIFICATIONLDL less than 100 mg/dL OptimalLDL 100-129 mg/dL Near or above senglupKWD942-944 mg/dL Borderline highLDL 160-189 mg/dL HighLDL greater than 189 mg/dL Very highCholesterol in VLDL Calc [Mass/Vol]Ordered By: Charan Casey on 47-25-5658Xbniiwxbqcm in VLDL [Mass/Vol]41 mg/dLOhio State University Wexner Medical CenterColor Auto (U)Ordered By: Elpidio Whipple on 82-10-6004Fhfie (U)Dark yellowYellowOhio State University Wexner Medical CenterCreatinine [Mass/volume] in UrineOrdered By: Elpidio Whipple on 87-09-2835Hvybdohtaz (U) [Mass/Vol]127.6 mg/dLOhio State University Wexner Medical CenterComment on above:No reference range establishedCreatinine and Glomerular filtration rate.predicted panel (S/P/Bld)Ordered By: Charan Casey on 17-89-9670Dvicausgwp [Mass/Vol]1.41 mg/dL0.44-1.03[facility] CenterEosinophils Auto (Bld) [#/Vol] Ordered By: Charan Casey on 53-20-9188Ervmbyouhnq (Bld) [#/Vol]0.1 10*3/uL0.0-0.45 [facility] CenterEosinophils/100 WBC Auto (Bld)Ordered By: Charan Casey on 92-18-8020Mjnjquxvpxm/100 WBC (Bld)1.7 %.[facility] CenterErythrocyte distribution width Auto (RBC) [Ratio]Ordered By: Charan Casey on 62-15-1357Dqqbfutkzlv distribution width (RBC) [Ratio]13.1 %11.9-15.3FSumma Health Barberton CampusEstimated glomerular filtration rate (GFR) non- AmericanOrdered By: Charan Casey on 88-33-0406SOR/1.73 sq M.predicted among non- blacks MDRD (S/P/Bld) [Vol rate/Area]38 mL/MinOhio State University [facility] Medical Center Globulin Calc (S) [Mass/Vol]Ordered By: Charan Casey on 44-41-2193Kdukdfmn (S) [Mass/Vol]3.1 g/dLOhio State University Wexner Medical CenterHematocrit Auto (Bld) [Volume fraction]Ordered By: Charan Casey on 72-53-0067Sfkkjhyplo (Bld) [Volume fraction] 38.0 %34.0-46.4FSumma Health Barberton CampusHemoglobin [Mass/volume] in BloodOrdered By: Charan Casey on 53-60-1109Cvxrowqpui (Bld) [Mass/Vol]12.6 g/dL 11.8-15.4FSumma Health Barberton CampusKetones Auto test strip (U) [Mass/Vol] Ordered By: Elpidio Sole on 04-54-6409Apdrozq (U) [Mass/Vol]NegativeNegative [facility] CenterLaboratory - Chemistry and Chemistry - challengeOrdered By: Elpidio Sole on 20-60-9326Aovsqikak [Mass/Vol]1.9 mg/dL 1.6-2.6FSumma Health Barberton CampusLaboratory - Hematology and Cell counts Ordered By: Charan Casey on 59-01-0698Llznpktmc RBC/100 WBC (Bld) [Ratio]0.0 % 0-0.5FSumma Health Barberton CampusLabtrentontory - UrinalysisOrdered By: Elpidio Whipple on 34-25-3923Rxpisci casts LM Ql (Urine sed)0-8 [LPF]0-8[facility] CenterLeukocytes [#/volume] in Blood by Automated countOrdered By: Charan Casey on 80-60-4182PSD (Bld) [#/Vol]8.2 10*3/uL4.5-11.0[facility] CenterLymphocytes Auto (Bld) [#/Vol]Ordered By: Charan Casey on 08-13-2022 Lymphocytes (Bld) [#/Vol]2.8 10*3/uL1.00-4.8[facility] Lymphocytes/100 WBC Auto (Bld)Ordered By: Charan Casey on 08-13-2022 Lymphocytes/100 WBC (Bld)34.1 %.[facility] Auto (RBC) [Entitic mass]Ordered By: Charan Casey on 70-06-8608SFV (RBC) [Entitic mass]28.5 pg24.7-34.3FFirelands Regional Medical Center South CampusHC Auto (RBC) [Mass/Vol]Ordered By: Charan Casey on 76-38-4457GPLD (RBC) [Mass/Vol]33.2 g/dL32.0-35.0[facility] CenterMCV Auto (RBC) [Entitic vol]Ordered By: Charan Casey on 01-54-2589NUW (RBC) [Entitic vol]85.8 oU58-345WtdkfsgmyOhio State University Wexner Medical Center Monocytes Auto (Bld) [#/Vol]Ordered By: Charan Casey on 99-76-2246Mhamafhgr (Bld) [#/Vol]0.5 10*3/uL0.0-0.8[facility] CenterMonocytes/100 WBC Auto (Bld)Ordered By: Charan Casey on 78-88-5658Dgjcfblsv/100 WBC (Bld)6.4 %.[facility] CenterNeutrophils Auto (Bld) [#/Vol]Ordered By: Charan Casey on 13-31-7776Srbtnrfimcn (Bld) [#/Vol]4.7 10*3/uL1.8-7.7FSumma Health Barberton CampusNeutrophils/100 WBC Auto (Bld)Ordered By: Charan Casey on 08-13-2022 Neutrophils/100 WBC (Bld)56.8 %.[facility] CenterNitrite Test strip Ql (U)Ordered By: Elpidio Whipple on 90-39-4221Rbkzudj Ql (U)NegativeNegative [facility] CenterNo Panel InformationOrdered By: Charan Casey on 78-56-066512784478-Furiate Vitamin D Total37.8 ng/bV89-426UrcqfuralOhio State University Wexner Medical CenterComment on above:VITAMIN D STATUS 25(OH)VITAMIN D RANGE (ng/mL) Deficient <20 Insufficient 20 to <86Fnitfqtuow43 to 100Reference: Nayeli MF,Hannah NC, Jose GILBERT, et al. Evaluation,treatment, and prevention of vitamin D deficiency; an Endocrine Society clinical practice guideline. JCEM. 2010; 96 (7):1911-30.Estimated GFR ()46 mL/MinOhio State University Wexner Medical CenterComment on above:GFR estimated reference range: According to KDOQI guidelines, <60 ml/min/1.73m2 is sufficient todiagnose a patient with chronic kidney disease.Pharmacy Creatinine Clearance (ChemN/AFSumma Health Barberton CampusPlatelet mean volume Auto (Bld) [Entitic vol]Ordered By: Charan Casey on 08-62-4673Lwapojhw mean volume (Bld) [Entitic vol]9.2 fL6.3-10.7FSumma Health Barberton CampusPlatelets Auto (Bld) [#/Vol]Ordered By: Charan Casey on 56-39-8255Xvirxbyzt (Bld) [#/Vol]272 10*3/eG023-044TiujcqzogOhio State University Wexner Medical CenterProtein Auto test strip (U) [Mass/Vol]Ordered By: Elpidio Whipple on 86-46-0163Fdeyece (U) [Mass/Vol]NegativeNegativeOhio State University Wexner Medical CenterProtein [Mass/volume] in Serum or PlasmaOrdered By: Charan Casey on 34-71-6172Mqoygoz [Mass/Vol]7.0 g/dL6.1-7.9[facility] Protein [Mass/volume] in UrineOrdered By: Elpidio Whipple on 77-43-6057Zwhbqba (U) [Mass/Vol]7 mg/dL0-9[facility] CenterRBC Auto (Bld) [#/Vol] Ordered By: Charan Casey on 69-21-8373SNQ (Bld) [#/Vol]4.43 10*6/uL3.60-5.00 [facility] Centererum or plasma alanine aminotransferase measurement without P-5'-P (enzymatic activiOrdered By: Charan Casey on 08-13-2022 ALT No additional P-5'-P [Catalytic activity/Vol]12 U/F81-17SmvcsayenLouis Stokes [facility] Medical Centererum or plasma albumin/globulin mass ratioOrdered By: Charan Casey on 17-77-2740Pmgdauq/Globulin [Mass ratio]1.3 {ratio}[facility] Centererum or plasma alkaline phosphatase measurement (enzymatic activity/volume)Ordered By: Charan Casey on 84-54-9914STW [Catalytic activity/Vol] 79 U/W04-63FnotxgcncLouis Stokes [facility] Medical Centererum or plasma anion gap determinationOrdered By: Charan Casey on 54-63-9589Vvwiy gap [Moles/Vol]15.4 mmol/L6.0-15.0[facility] Centererum or plasma aspartate aminotransferase measurement (enzymatic activity/volume)Ordered By: Charan Casey on 04-59-9022JXL [Catalytic activity/Vol]22 U/K13-44JdbvboomoLouis Stokes [facility] Medical Centererum or plasma calcium measurement (mass/volume)Ordered By: Charan Casey on 24-93-5003Vqqnqww [Mass/Vol]10.1 mg/dL8.2-10.2FSumma Health Barberton Campus Serum or plasma chloride measurement (moles/volume)Ordered By: Charan Casey on 80-08-7005Gctpqmgg [Moles/Vol]102 mmol/E44-049GzpnryrpiOhio State University [facility]xner Medical Center Serum or plasma glucose measurement (mass/volume)Ordered By: Charan Casey on 61-18-3757Zazgswu [Mass/Vol]114 mg/yK50-171QovrahgygOhio State University Wexner Medical Center Comment on above:ADA recommended reference rangeRandom Glucose Reference Range is dependent on time and content of last meal. Glucose of more than 200 mg/dL in a nonstressed, ambulatory subject supports the diagnosisof Diabetes Mellitus. Serum or plasma high density lipoprotein (HDL) cholesterol measurementOrdered By: Charan Casey on 30-36-2012Xtzwvsquuqg in HDL [Mass/Vol]28 mg/lV39-24IyqiktxgsOhio State University Wexner Medical CenterComment on above:HDL CHOL ATP-III CLASSIFICATION Cardiovascular RiskHDL > or equal to 60 mg/dL LOWHDL < 40 mg/dL HIGHSerum or plasma intact parathyroid hormone measurement (mass/volume)Ordered By: Elpidio Whipple on 55-41-3420Udvpzauzhq.intact [Mass/Vol]87.0 pg/iP41-55NrvoddxxkLouis Stokes [facility] Medical Centererum or plasma potassium measurement (moles/volume)Ordered By: Charan Casey on 80-83-3315Dqnkgqxhr [Moles/Vol]4.9 mmol/L3.5-5.1FElyria Memorial Hospitalerum or plasma sodium measurement (moles/volume)Ordered By: Charan Casey on 38-22-9100Elsymc [Moles/Vol]138 mmol/X224-195RwwqdhebhLouis Stokes [facility] Medical Centererum or plasma total bilirubin measurement (mass/volume)Ordered By: Charan Casey on 38-89-1226Rjemaguhh [Mass/Vol]0.4 mg/dL0.3-1.2FElyria Memorial Hospitalerum or plasma total carbon dioxide measurement (moles/volume)Ordered By: Charan Casey on 69-71-3781SU6 [Moles/Vol]25.5 mmol/L 22.0-30.0[facility] Centererum or plasma total cholesterol/high density lipoprotein (HDL) cholesterol mass ratOrdered By: Charan Casey on 45-26-5318Uoklzbywpkh.total/Cholesterol in HDL [Mass ratio]6.1 {ratio}<5.0 [facility] Centererum or plasma urea nitrogen measurement (mass/volume)Ordered By: Charan Casey on 13-08-3466Ozol nitrogen [Mass/Vol]45 mg/dL9-23[facility] Centererum or plasma uric acid measurement (mass/volume)Ordered By: Charan Casey on 88-81-5155Okyew [Mass/Vol]7.9 mg/dL 2.6-7.2FElyria Memorial Hospitalpecific gravity Auto test strip (U) [Rel density]Ordered By: Elpidio Whipple on 09-69-2010Qybqxzwp gravity (U) [Rel density]1.0201.001-1.030[facility] Medical Centerquamous epithelial cells detection in urine sediment by light microscopyOrdered By: Elpidio Whipple on 77-52-0845Uyemxrvwnc cells.squamous LM Ql (Urine sed)0-1 [HPF]0-2FSumma Health Barberton CampusTS DL <= 0.005 mIU/L QnOrdered By: Charan Casey on 73-22-9423KIN Qn1.91 m[IU]/L0.45-5.33[facility] Triglyceride [Mass/volume] in Serum or PlasmaOrdered By: Charan Casey on 29-17-4688Mishbmxaafuf [Mass/Vol]207 mg/wR82-326BpqbtbbmzOhio State University Wexner Medical CenterComment on above:TRIG ATP III CLASSIFICATIONTRIG less than 150 mg/dL NormalTRIG 150-199 mg/dL Borderline highTRIG 200-500 mg/dL High TRIG greater than 500 mg/dL Very highStandard traceable to the Center for Disease Conrtrol and Prevention (CDC) test method.Urine bacteria detection by automated method Ordered By: Elpidio Whipple on 63-64-9529Bniggjhh Auto Ql (U)None seenNone Seen [facility] CenterUrine clarity by refractometry automatedOrdered By: Elpidio Whipple on 26-96-2551Cninzew Refractometry automated (U)ClearClear [facility] CenterUrine glucose measurement by automated test strip (mass/volume)Ordered By: Elpidio Whipple on 15-36-7010Xcuyikc Auto test strip (U) [Mass/Vol]Normal mg/dLNormalOhio State University Wexner Medical CenterUrine hemoglobin detection by automated test stripOrdered By: Elpidio Whipple on 54-42-0020Przzkvlwmc Auto test strip Ql (U)NegativeNegativeOhio State University Wexner Medical CenterUrine leukocyte esterase detection by automated test stripOrdered By: Elpidio Whipple on 80-70-6934Cqsrajvpl esterase Auto test strip Ql (U)Negative NegativeOhio State University Wexner Medical CenterUrine protein/creatinine ratioOrdered By: Elpidio Whipple on 99-33-6284Qitdoel/Creatinine (U) [Ratio]55 mg/g{Cre}0-200 [facility] Medical CenterUrobilinogen Auto test strip (U) [Mass/Vol] Ordered By: Elpidio Whipple on 11-28-5742Ncoisqbhzetj (U) [Mass/Vol]Normal mg/dL NormalOhio State University Wexner Medical CenterpH Auto test strip (U)Ordered By: Elpidio Whipple on 06-58-5056xG (U)5.0 [pH]5.0-9.0[facility] Medical CenterTobacco Screening.on 62-94-7479Nffiz depression screening assessmentNo-[facility] [employer] 250 DO Work Phone: Fall risk assessmenta) No falls within the last year -[facility] [employer] 250 DO Work Phone: Tobacco use status CPHSb) NoMP-[facility] [employer] 250 DO Work Phone: Laboratory - Chemistry and Chemistry - challengeon 13-43-5063Ppuamzhwtek [Mass/Vol]218\S\218above high gzgbdyhmw680-403VC-[facility] [place] [facility] 250 DO Work Phone: Comment on above:Chol less than 200 mg/dl low risk Chol 201-239 mg/dl borderline risk Chol 240 mg/dl and greater high risk Cholesterol in LDL [Mass/Vol]145\S\145above high omfzfrxta1-443VR-Panye [place] [facility] 250 DO Work Phone: Comment on above:LDL ATP III CLASSIFICATION LDL less than 100 mg/dL Optimal LDL 100-129 mg/dL Near or above optimal LDL 130-159 mg/dL Borderline high LDL 160-189 mg/dL High LDL greater than 189 mg/dL Very high Laboratory - Microbiology and Antimicrobial susceptibilityon 03-25-2022 SARS-CoV-2 (COVID-19) RNA AHMET+probe Ql (Unsp spec)MP-[facility] 250 DO Work Phone: No Panel Informationon .2\S\40.2Normal.MP- [facility] 250 DO Work Phone: [phone]\S\9.9Zusoby7.3-10.7MP-[facility] 250 DO Work Phone: [phone]\S\008Ktvzha637-805UD-Nqfck [place] [facility] 250 DO Work Phone: [phone]\S\13.8Xiqzpf95.9-15.3MP-[facility] 250 DO Work Phone: [phone]\S\34.1Bngrjm86.0-35.0MP-[facility] 250 DO Work Phone: [phone]\S\29.5Jyzbfg76.7-34.3MP-[facility] 250 DO Work Phone: [phone]\S\2.8Jmhkbx7.8-7.7MP-[facility] 250 DO Work Phone: [phone]\S\0.1Aavrwj6.0-0.45MP-[facility] 250 DO Work Phone: [phone]\S\0.6Normal.MP-[facility] 250 DO Work Phone: [phone]\S\2.9Normal.MP-[facility] 250 DO Work Phone: [phone]\S\7.1Normal.MP-[facility] 250 DO Work Phone: [phone]\S\49.2Normal.MP-[facility] 250 DO Work Phone: [phone]\S\0.9Asgqqu3.0-0.2MP-[facility] 250 DO Work Phone: [phone] on above:PERFORMED BY:[address] [place], [place] [phone] MEDICAL DIRECTORJE SHELLEY M.D.0.4\S\0.6Bmvfiq3.0-0.8MP-[facility] 250 DO Work Phone: [phone]\S\2.9Pgjftu6.00-4.8MP-[facility] 250 DO Work Phone: [phone]\S\85.8Ggcfgw25-688GD-Sghcl [place] [facility] 250 DO Work Phone: [phone]\S\39.7Lcgsbe79.0-46.4MP-[facility] 250 DO Work Phone: [phone]\S\13.0Yejsgj16.8-15.4MP-[facility] 250 DO Work Phone: [phone]\S\4.45Usqdjf3.60-5.00MP-[facility] 250 DO Work Phone: [phone]\S\5.2Gmummi8.8-11.6MP-[facility] 250 DO Work Phone: [phone]\S\33.6Dlsykm55.1-36.5MP-[facility] 250 DO Work Phone: [phone] on above:PERFORMED BY:[facility] [place], [place] [phone] MEDICAL DIRECTORJE SHELLEY M.D.1.0\S\1.0NormalMP-[facility] 250 DO Work Phone: [...] patients with mechanical heart valves: 3 - 4.510.9\S\10.7Jmtkxd3.0-12.9MP-[facility] 250 DO Work Phone: [phone]\S\26.2Zpgtvw83.0-30.0MP-[facility] 250 DO Work Phone: [phone]\S\754Fahnne00-977PZ-Ggdxj [place] [facility] 250 DO Work Phone: 1(583)494-58720.0\S\4.7Sqjbue9.5-5.1MP-[facility] 250 DO Work Phone: 1([phone])134-8762556\S\844Qjsoca786-150XB-Bcowf [place] [facility] 250 DO Work Phone: [phone]\S\01Uuempu6-84YP-Zcfqv [place] [facility] 250 DO Work Phone: [phone]\S\54NormalMP-[facility] 250 DO Work Phone: Comment on above:GFR estimated reference range: According to KDOQI guidelines, <60 ml/min/1.73m2 is sufficient todiagnose a patient with chronic kidney disease.45\S\45NormalMP-[facility] 250 DO Work Phone: [phone])414-3069472.22\S\1.22above high threshold0.44-1.03MP-[facility] 250 DO Work Phone: [phone]\S\6.4Normal<5.0MP-[facility] 250 DO Work Phone: Comment on above:PERFORMED BY:[place] [address] [place], [place] [phone] MEDICAL DIRECTORJE SHELLEY M.D.39\S\39NormalMP-[facility] 250 DO Work Phone: [phone]\S\197above high wsotwdrpi46-195VK-Wzlor [place] [facility] 250 DO Work Phone: Comment on above:TRIG ATP III CLASSIFICATION TRIG less than 150 mg/dL Normal TRIG 150-199 mg/dL Borderline high BLHG955-418 mg/dL High TRIG greater than 500 mg/dL Very high Standard traceable to the Center for Disease Conrtrol and Prevention (CDC) test method.34\S\34below low threshold 19-79ZW-Grcft [place] [facility] 250 DO Work Phone: Comment on above:HDL CHOL ATP-III CLASSIFICATION Cardiovascular Risk HDL > or equal to 60 mg/dL LOW HDL < 40 mg/dL HIGHNegative NormalNegative-[facility] 250 DO Work Phone: Comment on above:This is a duplicate Ashley SARS Antigen (PRISCILA) result to be used for statistical tracking purpose only.PERFORMED BY:[place] [address] [place], [place] [phone] MEDICAL BRANT SHELLEY M.D.CT Angio Coronary Arteries with Heart Flowon 18-74-1444HU Angio Coronary Arteries with [facility] [facility] DO Work Phone: th CTA CORONARY ART WITH HEARTFLOW IF SCORE >30%.on 09-28-9823DO CTA CORONARY ART WITH HEARTFLOW IF SCORE [...] R07.9: Chest pain. COMPARISON: None. ACCESSION NUMBER(S): [id number] ORDERING CLINICIAN: ROSALINDA TORRES TECHNIQUE: Using multi-detector [...] AORTIC VALVE: The (more content not included)...NormalUH [facility] ErTobacco Screening.on [id number] depression screening assessmentNo-[facility] DO Work Phone: Fall risk assessmenta) No falls within the last year -[facility] 250 DO Work Phone: Tobacco use status CPHSb) NoMP-[facility] [place] 250 DO Work Phone: SURGICAL PATHOLOGYon 27-00-3733KBZGZFRN PATHOLOGY Specimen #: [id number] Physician: REUBEN CRAVEN M.D. FINAL DIAGNOSIS1. 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 Skin,left upper arm, shave biopsy ([id number]; 07/20/2018) - Intradermal nevus, neurotized (see comment).AF/CE/dss 07/26/2018 COMMENTMany thanks for involving us in this case of two melanocytic lesions fromthe right posterior shoulder and left upper arm of a 57-year-old woman. 1. Histologic sections demonstrate a junctional melanocytic proliferationwith bridging of adjacent rete ridges, papillary dermalfibrosis andunderlying sparse lymphocytic inflammation and melanoderma. An immunohistochemical stain for MART-1 and S100 protein [facility] are [facility]. These stains highlight a well-nested,symmetric [...] consultation. Please call theDermatopathology Consultation Service at [phone] with questions or ifadditional follow-up information becomes available regarding this patient.This case was reviewed in conjunction with the Dermatopathology Fellow, Dr.Carly Marija MD.Donald Zavaleta M.D. PhD(Electronic Signature) SPECIMEN SUBMITTEDA: 11 SLIDES ([id number]) CLINICAL DATANone provided. of Report: 07/26/2018Date of Procedure: 07/23/2018Dateof Receipt: 07/23/2018Submitted by: REUBEN CRAVEN M.D.Location: S47Dpryrddukf interpretation performed at [facility], [address] [place] [address].NormalM[facility] Reference LabComment on above:Performed By: #### S ####See report for performing lab information. Vital Signs Date TimeVital SignValuePerforming EraeolccqIblbluux67-00-0450 08:040Body sygkol164.6 cmAllison PetNovonics DO Work Phone: [facility] Qoecihrbcd91-72-6031 08:13040Body temperature 97.5 [degF]Shaina Petznick DO Work Phone: [facility] Ghqqhynuvc64-18-6426 08:040Diastolic blood vlzxxfyy85 mm[Hg]Shaina Petznick DO Work Phone: [facility] Jukfqxrtoy30-85-1342 08:13040Heart rate65 /min Shaina Petznick DO Work Phone: noMS Cgpbxjqyvl54-41-6320 08:134618FvL7% (BldA) [Mass fraction]98 %Shaina PetNovonics DO Work Phone: noCooper County Memorial HospitalBgzansjqyu95-09-7600 08:13-0400Systolic blood erwocdgm750 mm[Hg]Shaina Petznick DO Work Phone: noCooper County Memorial HospitalZtklsjdflg79-85-9837 08:20-0400Body temperature 97.8 [degF]Charan Casey DO Work Phone: [facility]08-13-2025 08:20-0400 Diastolic blood vufevpjj49 mm[Hg]Charan Casey DO Work Phone: [facility]08-13-2025 08:20-0400 Heart rate70 /minCharan Casey DO Work Phone: [facility]08-13-2025 08:20-0400 Respiratory rate16 /minCharan Casey DO Work Phone: [facility]08-13-2025 08:20-0400 SaO2% (BldA) [Mass fraction]97 %Charan Casey DO Work Phone: [facility]08-13-2025 08:20-0400 Systolic blood pfllveww215 mm[Hg]Charan Casey DO Work Phone: [facility]06-16-2025 10:29-0400 Body bmpecq595.6 cmAllison Petznick DO Work Phone: noCooper [facility] Memorial HospitalDinmketoyb96-30-8612 10:29-0400Body mass index (BMI) [Ratio]35.86 kg/l7Uujgizs Petznick DO Work Phone: noCooper County Memorial HospitalGlrrnxfcrn32-38-0194 10:29-0400Body temperature 97.2 [degF]Shaina Petznick DO Work Phone: NOCooper County Memorial HospitalXtuqflfzae93-26-8855 10:29-0400Body uyfzdg824.79 kgAllison Petznick DO Work Phone: noCooper County Memorial HospitalUhqkbjhjbd16-99-1515 10:29-0400Diastolic blood ctqriiie99 mm[Hg]Shaina Petznick DO Work Phone: noCooper County Memorial HospitalLagkasqlib88-49-0564 10:29-0400Heart rate67 /min Shaina Munroe DO Work Phone: noCooper County Memorial HospitalTuuwuccuwm01-19-8156 10:29-1362RcO5% (BldA) [Mass fraction]98 %Shaina Paredesick DO Work Phone: noCooper County Memorial HospitalHbeylyodwr38-56-5857 10:290400Systolic blood kvqahntp078 mm[Hg]Shaina Paredesick DO Work Phone: noCooper County Memorial HospitalAccphpdtqn14-58-1507 08:09-0400Body viptju382.18 cmCharan Casey DO Work Phone: [address] [place], [place] 8751304-07-2025 08:09-0400 Body mass index (BMI) [Ratio]35.4 kg/p6VlixfCharan Masseys DO Work Phone: [phone] [place], [place] 8751304-07-2025 08:09-0400 Body gfrety909.51 kgCharan Masseys DO Work Phone: [address] [place], [place] 8751304-07-2025 08:09-0400 Respiratory rate16 /minCharan Masseys DO Work Phone: [phone]04-07-2025 08:09-0400 SaO2% (BldA) [Mass fraction]98 %Charan Casey DO Work Phone: [facility]03-20-2025 09:35-0400 Body kpchiv821.18 cmCharan Masseys DO Work Phone: [phone])012-[address] [place], [place] 3892703-20-2025 09:35-0400 Body mass index (BMI) [Ratio]36.5 kg/e7HvlawCharan Masseys DO Work Phone: [phone]03-20-2025 09:35-0400 Body ysojqd382.68 kgCharan Masseys DO Work Phone: [phone](284)3-[address] [place], [place] 3892702-10-2025 10:01-0500 Body .18 cmCharan Casey DO Work Phone: [facility]02-10-2025 10:01-0500 Body mass index (BMI) [Ratio]36.5 kg/z9CohcmCharan Masseys DO Work Phone: [facility]02-10-2025 10:01-0500 Body eijrlp929.68 kgCharan Masseys DO Work Phone: [facility]02-10-2025 10:01-0500 Diastolic blood mbttveez00 mm[Hg]Charan Casey DO Work Phone: 1(123)395-[address] [place], [place] 3892702-10-2025 10:01-0500 Heart rate69 /minCharan Casey DO Work Phone: [phone]88[facility]02-10-2025 10:01-0500 Respiratory rate16 /minCharan Casey DO Work Phone: [phone]02-10-2025 10:01-0500 SaO2% (BldA) [Mass fraction]98 %Charan Casey DO Work Phone: [facility]02-10-2025 10:01-0500 Systolic blood vhgeqlht447 mm[Hg]Charan Masseys DO Work Phone: [phone]01-10-2025 10:39-0500 Body gotmyd692.18 cmCharan Masseys DO Work Phone: [phone]01-10-2025 10:39-0500 Body mass index (BMI) [Ratio]36.1 kg/z1GbiccCharan Masseys DO Work Phone: [phone]01-10-2025 10:39-0500 Body ottzxbohqog08.4 [degF]Charan Masseys DO Work Phone: [phone]01-10-2025 10:39-0500 Body .77 kgCharan Masseys DO Work Phone: [facility]01-10-2025 10:39-0500 Diastolic blood uzspaixt12 mm[Hg]Charan Brysons DO Work Phone: [facility]01-10-2025 10:39-0500 Heart rate78 /minYeisonan Brysons DO Work Phone: [facility]01-10-2025 10:39-0500 Respiratory rate16 /minBryan Kuns DO Work Phone: [facility]01-10-2025 10:39-0500 SaO2% (BldA) [Mass fraction]97 %Charan Brysons DO Work Phone: [facility]01-10-2025 10:39-0500 Systolic blood mm[Hg]Charan Brysons DO Work Phone: [address] [place], [place] 8751312-03-2024 09:30-0500 Diastolic blood haqxictc25 mm[Hg]Charan Brysons DO Work Phone: [address] [place], [place] 8751312-03-2024 09:30-0500 Heart rate65 /minCharan Masseys DO Work Phone: [facility]12-03-2024 09:30-0500 Respiratory rate16 /minYeisonan Brysons DO Work Phone: [facility]12-03-2024 09:30-0500 SaO2% (BldA) [Mass fraction]99 %Charan Brysons DO Work Phone: [facility]12-03-2024 09:30-0500 Systolic blood aafruhlf614 mm[Hg]Charan Brysons DO Work Phone: [facility]12-03-2024 08:48-0500 Inhaled oxygen flow rate3 L/minYeisonan Brysons DO Work Phone: [address] [place], [place] 8751312-03-2024 07:38-0500 Body xyhctx296.18 cmBryan Kuns DO Work Phone: [facility]12-03-2024 07:38-0500 Body isodjh674.86 kgBryheather Kuns DO Work Phone: [facility]11-20-2024 08:13-0500 Body indiaq974.88 kgBryheather Masseys DO Work Phone: [facility]11-18-2024 13:12-0500 Body satdva609.6 cmAllison Petznick DO Work Phone: [phone] [place], [place] [address]Pkhbztgrql05-39-6959 13:12-0500Body mass index (BMI) [Ratio]39.06 kg/m4Vzsgazd Petznick DO Work Phone: 1(295)[facility] [place], [place] [address]Fppggoapnf03-71-4603 13:12-0500Body temperature 97.3 [degF]Shaina Petznick DO Work Phone: [phone] [place], [place] [address]Exidaenyue89-32-7208 13:12-0500Body xmydxk252.77 kgAllison Petznick DO Work Phone: 1(350)[facility] [place], [place] [address]Mykjawmlkj72-70-3155 13:12-0500Diastolic blood iamusjpj39 mm[Hg]Shaina Petznick DO Work Phone: [phone] [place], [place] [address]Pglidczjyb30-59-6279 13:12-0500Heart rate78 /min Shaina Petznick DO Work Phone: [phone])984-[address] [place], [place] [address]Edlkmuirfk71-06-0408 13:12-2464BjE5% (BldA) [Mass fraction]96 %Shaina Petznick DO Work Phone: [phone](692)809-[address] [place], [place] [address]Skwgigviul20-18-6031 13:12-0500Systolic blood psremyme570 mm[Hg]Shaina Petznick DO Work Phone: 5(605)525-[address] [place], [place] [address]Oyohxuipfm82-34-7372 10:28-0400Diastolic blood dipouaiw41 mm[Hg]DO Charan Casey Work Phone: [facility]10-22-2024 10:28-0400 Heart rate68 /minDO Charan Brysonbryn Work Phone: [facility]10-22-2024 10:28-0400 Respiratory rate16 /GeovanyO Charan Casey Work Phone: [facility]10-22-2024 10:28-0400 SaO2% (BldA) [Mass fraction]95 %DO Charan Casey Work Phone: [facility]10-22-2024 10:28-0400 Systolic blood mm[Hg]DO Charan Casey Work Phone: [address] [place], [place] 8751310-22-2024 09:50-0400 Inhaled oxygen flow rate3 L/Dean Casey Work Phone: [phone])[address]10-22-2024 08:38-0400 Body .18 cmDO Charan Casey Work Phone: [address] [place], [place] 8751310-22-2024 08:38-0400 Body vheloa934.95 kgDO Charan Casey Work Phone: [address] [place], [place] 8751309-26-2024 08:35-0400 Body mrikgq436.2 cmRosalinda Torres MD Work Phone: [facility]09-26-2024 08:35-0400 Body mass index (BMI) [Ratio]37.75 kg/l1PqxgxjRosalinda Torres MD Work Phone: 4(050)356-[address] [place], [place] 1152009-26-2024 08:35-0400 Body nhrutc885.32 kgRosalinda Torres MD Work Phone: [phone]09-26-2024 08:35-0400 Diastolic blood dcumvuyo49 mm[Hg]Rosalinda Torres MD Work Phone: [phone])569-[address] [place], [place] [address]2009-26-2024 08:35-0400 Heart rate80 /minRosalinda Torres MD Work Phone: [facility]09-26-2024 08:35-0400 Systolic blood oeikcygs753 mm[Hg]Rosalinda Torres MD Work Phone: [facility]07-10-2024 15:44-0400 Body huadoc430.18 cmDO Charan Casey Work Phone: [facility]07-10-2024 15:44-0400 Body mass index (BMI) [Ratio]37 kg/m2DO Charan Casey Work Phone: [facility]07-10-2024 15:44-0400 Body bjdurd154.5 kgDO Charan Casey Work Phone: [facility]07-10-2024 15:44-0400 Diastolic blood zaenjjff35 mm[Hg]DO Charan Casey Work Phone: [facility]07-10-2024 15:44-0400 Heart rate95 /GeovanyO Charan Jacinto Work Phone: [facility]07-10-2024 15:44-0400 SaO2% (BldA) [Mass fraction]96 %DO Charan Casey Work Phone: [facility]07-10-2024 15:44-0400 Systolic blood wuppcnkm727 mm[Hg]DO Charan Casey Work Phone: [facility]07-02-2024 11:30-0400 Diastolic blood piglqkmw07 mm[Hg]DO Charan Casey Work Phone: [facility]07-02-2024 11:30-0400 Heart rate68 /GeovanyO Charanheather Masseybryn Work Phone: [facility]07-02-2024 11:30-0400 Respiratory rate16 /GeovanyO Charanheather Casey Work Phone: [facility]07-02-2024 11:30-0400 SaO2% (BldA) [Mass fraction]98 %DO Charan Casey Work Phone: [facility]07-02-2024 11:30-0400 Systolic blood dnmuljob960 mm[Hg]DO Charan Casey Work Phone: [facility]07-02-2024 10:53-0400 Inhaled oxygen flow rate3 L/Dean Casey Work Phone: [facility]07-02-2024 10:09-0400 Body abvrew861.18 cmDO Charan Casey Work Phone: [facility]07-02-2024 10:09-0400 Body flujsm942.86 kgDO Charan Casey Work Phone: [facility]04-02-2024 09:31-0400 Body .18 cmDO Charan Casey Work Phone: [facility]04-02-2024 09:31-0400 Body mass index (BMI) [Ratio]37.4 kg/m2DO Charan Casey Work Phone: [facility]04-02-2024 09:31-0400 Body slelskbqdkb59.8 [degF]DO Charan Casey Work Phone: [facility]04-02-2024 09:31-0400 Body wpmaby969.4 kgDO Charan Casey Work Phone: [facility]04-02-2024 09:31-0400 Diastolic blood ebsspaaw65 mm[Hg]DO Charan Casey Work Phone: [facility]04-02-2024 09:31-0400 Heart rate88 /Dean Casey Work Phone: [facility]04-02-2024 09:31-0400 Respiratory rate16 /Dean Casey Work Phone: [facility]04-02-2024 09:31-0400 SaO2% (BldA) [Mass fraction]98 %DO Charan Casey Work Phone: [facility]04-02-2024 09:31-0400 Systolic blood hehpaewo721 mm[Hg]DO Charan Casey Work Phone: [facility]03-25-2024 14:26-0400 Body gqjinb170.2 cmRosalinda Torres MD Work Phone: 1(514)182-[address] [place], [place] [address]2003-25-2024 14:26-0400 Body mass index (BMI) [Ratio]37.12 kg/r8QitvpzRosalinda Torres MD Work Phone: [phone]03-25-2024 14:26-0400 Body bhjzdi972.5 kgRosalinda Torres MD Work Phone: [phone])[address]03-25-2024 14:26-0400 Diastolic blood uocmxqds14 mm[Hg]Rosalinda Torres MD Work Phone: [phone])[address]03-25-2024 14:26-0400 Heart rate84 /minRosalinda Torres MD Work Phone: [phone])[address]03-25-2024 14:26-0400 Systolic blood eimqrrpv067 mm[Hg]Rosalinda Torres MD Work Phone: [phone])[address]01-31-2024 13:00-0500 Body .18 cmCharan Casey Other [facility]01-31-2024 13:00-0500 Body mass index (BMI) [Ratio]37.59 kg/l0BvdyqCharan Casey Other [employer] Other 922751-71-2449 13:00-0500Body uhxempnctrv81.3 [degF]Charan Casey Other [facility] [employer] Other 01-31-2024 13:00-0500Body .86 kgCharan Casey Other [facility]01-31-2024 13:00-0500 Diastolic blood iudgjllx93 mm[Hg]Charan Casey Other [facility]01-31-2024 13:00-0500 Respiratory rate18 /minCharan Casey Other [email or web address] Other [id number] 13:00-9526IaA3% (BldA) [Mass fraction]96 % Charan Casey Other [employer] Other 981256-88-7697 13:00-0500Systolic blood hlhfqvke290 mm[Hg] Charan Casey Other [facility]11-22-2023 12:45-0500 Body .18 cmThommarquez Josesito Other [employer] Other 11-22-2023 12:45-0500Body mass index (BMI) [Ratio] 37.43 kg/w0Rcdqjw Josesito Other [employer] Other 11-22-2023 12:45-0500Body zsvlipdxknt33.6 [degF]Blas Bellamy Other [email or web address] Other 11-22-2023 12:45-0500Body dobrtz648.41 kgThomas Josesito Other [email or web address] Other 11-22-2023 12:45-0500Diastolic blood nhnncnie04 mm[Hg] Blas Bellamy Other [email or web address] Other 11-22-2023 12:45-0500Respiratory rate18 /minThomas Josesito Other [facility] [employer] Other 11-22-2023 12:45-4383BzW1% (BldA) [Mass fraction]96 % Blas Bellamy Other [facility] [employer] Other 11-22-2023 12:45-0500Systolic blood mm[Hg] Blas Bellamy Other [facility] [employer] Other 11-07-2023 09:04-0500Diastolic blood stwdmpra56 mm[Hg] DO Charan Casey Work Phone: [facility]11-07-2023 09:04-0500 Heart rate76 /Dean Casey Work Phone: [facility]11-07-2023 09:04-0500 Respiratory rate16 /Dean Casey Work Phone: [facility]11-07-2023 09:04-0500 SaO2% (BldA) [Mass fraction]96 %DO Charan Casey Work Phone: [facility]11-07-2023 09:04-0500 Systolic blood xzxnqiqs773 mm[Hg]DO Charan Casey Work Phone: [facility]11-07-2023 07:01-0500 Body umonzc396.18 cmDO Charan Casey Work Phone: [facility]11-07-2023 07:01-0500 Body .59 kgDO Charan Casey Work Phone: [facility]10-17-2023 10:20-0400 Body sdespo442.18 cmAbdul Sole Other [facility] [employer] Other [id number] 10:20-0400Body mass index (BMI) [Ratio] 37.46 kg/h2Efyhb Sole Other [facility] [employer] Other 10-17-2023 10:20-0400Body .2 [degF]Elpidio Sole Other [place] [employer] Other 10-17-2023 10:20-0400Body akpirk297.5 kgAbdul Sole Other [place] [employer] Other 10-17-2023 10:20-0400Diastolic blood sgsalmjp42 mm[Hg] Elpidio Sole Other [place] [employer] Other 10-17-2023 10:20-0400Respiratory rate18 /minAbdul Sole Other [place] [employer] Other 10-17-2023 10:20-0985YwA4% (BldA) [Mass fraction]99 % Elpidio Sole Other [place] [employer] Other 10-17-2023 10:20-0400Systolic blood dkocgxuq835 mm[Hg] Elpidio Sole Other [place] [employer] Other 10-10-2023 09:00-0400Diastolic blood xvheenrq58 mm[Hg] DO Charan Masseybryn Work Phone: [facility]10-10-2023 09:00-0400 Heart rate69 /Dean Casey Work Phone: [facility]10-10-2023 09:00-0400 Respiratory rate16 /Dean Casey Work Phone: [facility]10-10-2023 09:00-0400 SaO2% (BldA) [Mass fraction]96 %DO Charan Casey Work Phone: [facility]10-10-2023 09:00-0400 Systolic blood zjavocfj917 mm[Hg]DO Charan Casey Work Phone: [facility]10-10-2023 08:17-0400 Inhaled oxygen flow rate3 L/minDO Charan Casey Work Phone: [facility]10-10-2023 07:21-0400 Body iudajr493.18 cmDO Charanheather Casey Work Phone: [facility]10-10-2023 07:21-0400 Body unmovg065.86 kgDO Charan Casey Work Phone: [facility]09-18-2023 09:30-0400 Body xapjly687.18 cmThomas Felter Other [employer] Other 09-18-2023 09:30-0400Body mass index (BMI) [Ratio] 38.06 kg/i1Fnzpyy Felter Other [employer] Other 09-18-2023 09:30-0400Body cpaxeh075.22 kgThomas Felter Other [employer] Other 09-12-2023 09:20-0400Body joukxv395.18 cmDale Chatterjee Other [employer] Other 09-12-2023 09:20-0400Body mass index (BMI) [Ratio] 38.06 kg/m2Dale Chatterjee Other [employer] Other 09-12-2023 09:20-0400Body dwtpox299.22 kgDale Chatterjee Other [employer] Other 09-12-2023 09:20-0400Diastolic blood bbstkfve44 mm[Hg] Thierno Chatterjee Other [employer] Other 09-12-2023 09:20-0400Systolic blood chssnouy330 mm[Hg] Thierno Chatterjee Other [employer] Other 09-06-2023 08:15-0400Body .18 cmCharan Casey Other [employer] Other 09-06-2023 08:15-0400Body mass index (BMI) [Ratio] 38.21 kg/m4CjdjsCharan Casey Other [employer] Other 09-06-2023 08:15-0400Body kdkkus223.68 kgCharan Casey Other [employer] Other 09-06-2023 08:15-0400Diastolic blood sokveozr41 mm[Hg] Charan Casey Other [employer] Other 09-06-2023 08:15-0400Respiratory rate18 /minCharan Casey Other [employer] Other 09-06-2023 08:15-3831NdE4% (BldA) [Mass fraction]95 % Charan Casey Other [employer] Other 09-06-2023 08:15-0400Systolic blood idtxgjic126 mm[Hg] Charan Casey Other [employer] Other 06-20-2023 12:30-0400Body yplbwm602.18 cmCharan Casey Other [facility] [employer] Other 06-20-2023 12:30-0400Diastolic blood mm[Hg] Charan Casey Other [place] [employer] Other 06-20-2023 12:30-0400Respiratory rate18 /minCharan Casey Other [place] [employer] Other 06-20-2023 12:30-7233ZyC8% (BldA) [Mass fraction]97 % Charan Casey Other [place] [employer] Other 06-20-2023 12:30-0400Systolic blood mm[Hg] Charan Casey Other [place] [employer] Other 06-01-2023 10:17-0400Body ydqufu414.18 cmCharan Casey Work Phone: [id number] [place] [employer] 250 DO Work Phone: 1(188) 349-564206-01-2023 10:17-0400Body mass index (BMI) [Ratio] Medical Reason Not DoneCharan Casey Work Phone: [id number]-Dfmwm [place] HeartBob[facility] Interactive CorporationRadha 250 DO Work Phone: 1(670) 869-139206-01-2023 10:17-0400Diastolic blood mm[Hg] Charan Casey Work Phone: [id number]-Mdgug [place] HeartBob[facility] Interactive CorporationRadha 250 DO Work Phone: 1(566) 240-645106-01-2023 10:17-0400Heart rate72 /minCharan Casey Work Phone: mp663-5703WX-Klqfo [place] [facility] 250 DO Work Phone: 1(578) 386-110606-01-2023 10:17-0400Systolic blood mm[Hg] Charan Casey Work Phone: 1(696) 995-5196275-5510DR-Dfxdx [facility] 250 DO Work Phone: 1(646) 459-550705-02-2023 15:30-0400Body skovee335.18 cmCharan Brysonbryn Other [facility] [employer] Other 05-02-2023 15:30-0400Diastolic blood sqcaizfv14 mm[Hg] Charan Casey Other [place] [employer] Other 05-02-2023 15:30-0400Respiratory rate18 /minCharan Casey Other [facility] [employer] Other 05-02-2023 15:30-5375OdC8% (BldA) [Mass fraction]98 % Charanheather Casey Other [place] [employer] Other 05-02-2023 15:30-0400Systolic blood mm[Hg] Charan Casey Other [place] [employer] Other 04-11-2023 15:40-0400Body .18 cmAbdul Sole Other [facility] [employer] Other 04-11-2023 15:40-0400Diastolic blood gcmetpoc45 mm[Hg] Elpidio Sole Other [place] [employer] Other 04-11-2023 15:40-0400Respiratory rate16 /minAbdul Sole Other [place] [employer] Other 04-11-2023 15:40-9942EeG7% (BldA) [Mass fraction]99 % Elpidio Sole Other [facility] [employer] Other 04-11-2023 15:40-0400Systolic blood fnqewwab836 mm[Hg] Elpidio Sole Other [email or web address] Other 04-05-2023 15:00-0400Body ifyhjy949.18 cmChristopher Coco Other [employer] Other 04-05-2023 15:00-0400Body mass index (BMI) [Ratio] 37.43 kg/m1Eaedeavmzzy Coco Other [employer] Other 04-05-2023 15:00-0400Body hklyrv968.41 kgChristopher Coco Other [employer] Other 04-05-2023 15:00-0400Diastolic blood fmzoomev86 mm[Hg] Christopher Coco Other [employer] Other 04-05-2023 15:00-8509JrI2% (BldA) [Mass fraction]98 % Christopher Coco Other [employer] Other 04-05-2023 15:00-0400Systolic blood tlfynabc257 mm[Hg] Christopher Coco Other [employer] Other 10-26-2022 16:00-0400Body dtuypx710.18 cmAbdul Sole Other [email or web address] Other 10-26-2022 16:00-0400Body mass index (BMI) [Ratio] 37.37 kg/j0Vtruy Sole Other [facility] [employer] Other 10-26-2022 16:00-0400Body ooyejcvdzux60.4 [degF]Elpidio Sole Other [place] [employer] Other 10-26-2022 16:00-0400Body .23 kgAbdul Sole Other [employer] Other 10-26-2022 16:00-0400Diastolic blood bwojgqdl10 mm[Hg] Elpidio Sole Other [employer] Other 10-26-2022 16:00-0400Respiratory rate16 /minAbdul Sole Other [facility] [employer] Other 10-26-2022 16:00-6340CsW1% (BldA) [Mass fraction]98 % Elpidio Sole Other [place] [employer] Other 10-26-2022 16:00-0400Systolic blood temigpew723 mm[Hg] Elpidio Sole Other [employer] Other 10-04-2022 14:00-0400Body aneuxj535.18 cmCharan Casey Other [facility] [employer] Other 10-04-2022 14:00-0400Body mass index (BMI) [Ratio]37.9 kg/t0Wwmpm Jacinto Other [employer] Other 10-04-2022 14:00-0400Body jxajlg823.77 kgBryheather Jacinto Other [email or web address] Other 10-04-2022 14:00-0400Diastolic blood mm[Hg] Charan Casey Other [facility] [employer] Other 10-04-2022 14:00-0400Respiratory rate16 /minCharan Casey Other [facility] [employer] Other 10-04-2022 14:00-9399CtP2% (BldA) [Mass fraction]97 % Charan Casey Other [facility] [employer] Other 10-04-2022 14:00-0400Systolic blood oviesfsd970 mm[Hg] Charan Casey Other [facility] [employer] Other 08-28-2022 19:56-0400Body bhuwaq085.18 cmDO Charan Casey Work Phone: [facility]08-28-2022 19:56-0400 Body cuqplncmjcz00.1 [degF]DO Charan Casey Work Phone: [facility]08-28-2022 19:56-0400 Body rakttc040.55 kgDO Charan Casey Work Phone: [facility]08-28-2022 19:56-0400 Diastolic blood mm[Hg]DO Charan Casey Work Phone: [facility]08-28-2022 19:56-0400 Heart rate89 /Dean Casey Work Phone: [facility]08-28-2022 19:56-0400 Respiratory rate20 /Dean Casey Work Phone: [facility]08-28-2022 19:56-0400 SaO2% (BldA) [Mass fraction]98 %DO Charan Casey Work Phone: [facility]08-28-2022 19:56-0400 Systolic blood gctsnkil746 mm[Hg]DO Charan Casey Work Phone: [facility]06-09-2022 08:51-0400 Body .18 cmCharan Casey Work Phone: [phone]) [phone]-Wggag [facility] DO Work Phone: 1(766) 339-918206-09-2022 08:51-0400Body mass index (BMI) [Ratio] 38.06 kg/o3WibocCharan Casey Work Phone: [phone]) [phone]-Mgvrv [facility] DO Work Phone: 1(293) 389-121406-09-2022 08:51-0400Body surface area Derived from formula2.2 l2GajasCharan Casey Work Phone: 1(211) [phone]-Inofk [facility] DO Work Phone: 1(797) 506-855506-09-2022 08:51-0400Body .22 kgCharan Casey Work Phone: 1(407) [phone]-Glurr [facility] DO Work Phone: 1(416) 647-120806-09-2022 08:51-0400Diastolic blood gaxehmev57 mm[Hg] Charan Casey Work Phone: 1([phone]) [phone]-Agoyi [facility] DO Work Phone: 1(321) [phone] 08:51-0400Heart rate72 /minYeisonheather Dani Casey Work Phone: 1(675) [phone]-Hxhwe [facility] DO Work Phone: 1(864) [phone] 08:51-0400Systolic blood ywwbkkeh152 mm[Hg] Charan Dani Masseys Work Phone: 1(817) [phone]-Saaot [facility] DO Work Phone: 1(179) 507-307206-01-2022 17:00-0400Body fcafmj507.18 cmChristopher Coco Other [email or web address] Other 06-01-2022 17:00-0400Body mass index (BMI) [Ratio] 38.52 kg/g2Jxdxencxpoa Coco Other [employer] Other 06-01-2022 17:00-0400Body dtgrsszoyeh86.1 [degF] Federico Sepulveda Other [employer] Other 06-01-2022 17:00-0400Body .59 kgChristop Coco Other [employer] Other 06-01-2022 17:00-0400Diastolic blood emovsgty91 mm[Hg] Federico Sepulveda Other [employer] Other 06-01-2022 17:00-9413SqH3% (BldA) [Mass fraction]97 % Federico Sepulveda Other [employer] Other 06-01-2022 17:00-0400Systolic blood kslntmub872 mm[Hg] Federico Sepulveda Other [employer] Other 05-16-2022 11:30-0400Body rulbez001.18 cmYeisonheather Casey Other [employer] Other 05-16-2022 11:30-0400Body mass index (BMI) [Ratio] 38.52 kg/z2Wambw Kuns Other [employer] Other 05-16-2022 11:30-0400Body jvucei029.59 kgBryan Kuns Other [email or web address] Other 05-16-2022 11:30-0400Diastolic blood ednhojsa00 mm[Hg] Charan Casey Other [employer] Other 05-16-2022 11:30-0400Respiratory rate16 /minCharan Casey Other [employer] Other 05-16-2022 11:30-9747CjY5% (BldA) [Mass fraction]99 % Charan Casey Other [employer] Other 05-16-2022 11:30-0400Systolic blood jsauivge683 mm[Hg] Charan Casey Other [employer] Other 03-24-2022 17:00-0400Body mass index (BMI) [Ratio] 38.56 kg/e4Oaotq Sole Other [employer] Other 03-24-2022 17:00-0400Body eugvressldp30.2 [degF]Elpidio Sole Other [employer] Other 03-24-2022 17:00-0400Body hurwrz361.68 kgAbdul Sole Other [employer] Other 03-24-2022 17:00-0400Diastolic blood mm[Hg] Elipdio Sole Other [employer] Other 03-24-2022 17:00-0400Respiratory rate18 /minAbdul Sole Other [place] [employer] Other 03-24-2022 17:00-8991AuF3% (BldA) [Mass fraction]98 % Elpidio Sole Other [place] [employer] Other 03-24-2022 17:00-0400Systolic blood gcmhbadt677 mm[Hg] Elpidio Sole Other [facility] [employer] Other 03-24-2022 12:28-0400Body .18 cmCharan Louise Brysonbryn Work Phone: [phone]-Hgijf [place] [employer] DO Work Phone: 1(417) 420-662003-24-2022 12:28-0400Body mass index (BMI) [Ratio] 38.37 kg/a6CakeoCharan Casey Work Phone: [phone]) [phone]-Xayty [place] [employer] 250 DO Work Phone: 1(777) 469-816503-24-2022 12:28-0400Body surface area Derived from formula2.2 s6Pirom Dani Masseybryn Work Phone: [phone]-Hhodr [place] [employer] 250 DO Work Phone: 1(506) [phone] 12:28-0400Body lpvnae531.13 kgCharan Casey Work Phone: [phone]-Ppczr [place] [employer] 250 DO Work Phone: 1(867) [phone] 12:28-0400Diastolic blood kvojinzw34 mm[Hg] Charan Casey Work Phone: [phone]-Vincb [place] [employer] 250 DO Work Phone: 1(417) 435-662003-24-2022 12:28-0400Heart rate72 /minCharan Casey Work Phone: [phone]-Ceihh [facility] [facility] DO Work Phone: 1(589) [phone] 12:28-0400Systolic blood bqgrltji874 mm[Hg] Charan Casey Work Phone: 1(660) [phone]-Zxsmc [facility] DO Work Phone: 1(972) [phone] 09:45-0500Body limqxh647.18 cmCharan Casey Other [email or web address] Other 03-11-2022 09:45-0500Body mass index (BMI) [Ratio] 38.27 kg/h5MpdpdCharan Casey Other [employer] Other 03-11-2022 09:45-0500Body xgurrw596.86 kgCharan Casey Other [email or web address] Other 03-11-2022 09:45-0500Diastolic blood lvkgvrov87 mm[Hg] Charan Casey Other [employer] Other 03-11-2022 09:45-0500Respiratory rate18 /minCharan Casey Other [employer] Other 03-11-2022 09:45-9268DzI2% (BldA) [Mass fraction]95 % Charan Casey Other [employer] Other 03-11-2022 09:45-0500Systolic blood reytkwcs826 mm[Hg] Charan Casey Other [employer] Other 02-01-2022 17:20-0500Body .18 cmThierno Chatterjee Other [email or web address] Other 02-01-2022 17:20-0500Body mass index (BMI) [Ratio] 38.84 kg/m2Thierno Chatterjee Other [facility] [employer] Other 02-01-2022 17:20-0500Body eofryz957.49 kgDale Chatterjee Other [facility] [employer] Other 01-04-2022 15:00-0500Body xakzcq787.18 cmCharan Casey Other [facility] [employer] Other 11-02-2021 17:15-0400Body .18 Josué Ortiz Other [facility] [employer] Other Encounters Encounter DateEncounter TypeCare ProviderFacilityStart: 07-27-2025 End: 32-65-6763Ssgbnp flowsheetShaina Munroe DO Work Phone: [facility] 230Start: 07-27-2025 End: 07-14-9930Ctvima flowsheetShaina Munroe DO Work Phone: [facility] 230Start: 07-27-2025 End: 67-87-3513Jejwyc outpatient visit 25 minutesAlllucia Munroe DO Work Phone: [facility] 230Comment on above:Type 2 diabetes mellitus with [...] index (BMI) of35.0 to 35.9 in adult ([facility]-H[facility])Start: 07-27-2025 End: 63-57-6626cijsoulqltTQQPTGP M PETZNICKNot AvailableStart: 07-12-2025 End: 74-28-0242khijisjlpzEvrlq Kuns DO Work Phone: [facility] Work Phone: Start: 07-12-2025 End: 03-14-1178Rnlkesl encounter procedureCharan Louise DO-[facility] Work Phone: Start: 36-12-5500Ddb-patient / Non-visitMojunito Lyons MD-[facility] Work Phone: Start: 25-56-4839Sxw-patient / Non-visitMojunito yLons MD-[facility] Work Phone: Start: 95-74-4671Tqh-patient / Non-visitGustavo Cuevas DO -[facility] Work Phone: Start: 06-21-2025 End: 14-18-1288fvjnlgmrliQgszz Kuns DO Work Phone: [facility] Work Phone: Start: 06-21-2025 End: 34-63-8697Jjwsenv encounter procedureBlas Louise MD-[facility] Work Phone: Start: 56-98-9861Rzl-patient / Non-visitBlas Louise MD-[facility] Work Phone: Start: 06-14-2025 End: 83-27-1028pfohmpgagdYpugm Kuns DO Work Phone: [facility] Work Phone: Start: 06-14-2025 End: 32-81-6390Ypznino encounter procedureBlas Louise MD-[facility] Work Phone: Start: 06-05-2025 End: 11-99-4387Vjccdax encounter procedurePeHermosillo DPM [place]-[facility] CtrStart: 06-05-2025 End: 12-03-1916painhcytxbRhomx Kuns DO Work Phone: [facility] [place] Work Phone: start: 05-31-2025 End: 26-70-4280bjwpcevquuCannx Kuns DO Work Phone: [facility] Work Phone: Start: 05-31-2025 End: 67-39-6573Cowswjx encounter procedureKyraharsh Diana Louise MD-[facility] Work Phone: Start: 05-15-2025 End: 14-47-3593Hpzfui outpatient visit 25 minutesShaina Munroe DO Work Phone: [facility] 230Comment on above:Type 2 diabetes [...] index (BMI) of35.0 to 35.9 in adult ([facility])Start: 05-15-2025 End: 98-41-4024fispdrzfapMPVCHWW M PETZNICKNot AvailableStart: 03-06-2025 End: 22-13-5945huimzbvdajDzfdk Kuns DO Work Phone: [facility] Work Phone: Start: 03-06-2025 End: 48-86-8509Hiowlbc encounter procedureCharan Casey DO Work Phone: [facility] Work Phone: Start: 02-16-2025 End: 27-64-2217abimrdnldnNvtww Kuns DO Work Phone: [facility] Work Phone: Start: 02-16-2025 End: 92-28-8153Rggqkis encounter procedureCharan Casey DO Work Phone: [facility] Work Phone: Start: 02-14-2025 End: 87-19-8821fupflosfssBQTYXPM Carmen PAREDESLizabeth AvailableStart: 06-25-6720Kzi- patient / Non-visitBryan Brysons DO Work Phone: [facility] Work Phone: Start: 02-01-2025 End: 22-43-3128wbukbpdlwnYkihi Kuns DO Work Phone: [facility] Work Phone: Start: 02-01-2025 End: 69-21-9232Ueyqyyj encounter procedureBryan Brysons DO Work Phone: [facility] Work Phone: Start: 01-31-2025 End: 83-48-3015rgqfdwpticNpsns Kuns DO Work Phone: [facility] [place] Work Phone: Start: 01-31-2025 End: 85-35-6168Qxduhessah RecurringBryan Brysons DO Work Phone: [facility] [place]-Physical Therapy [place] CreekStart: 46-75-5464Jkvwkmbjwt RecurringBryan Brysons DO Work Phone: [facility] [place]-Physical Therapy [place] CreekStart: 01-26-2025 End: 07-08-0579gaemeonmfjGfxbo Kuns DO Work Phone: [facility] Work Phone: Start: 01-26-2025 End: 62-93-1358Tmdxjze encounter procedureBryan Brysons DO Work Phone: [facility] Work Phone: Start: 02-49-7994Kcyqhrghfh RecurringBryan Brysons DO Work Phone: [facility] [place]-Physical Therapy [place]Start: 01-23-2025 End: 61-54-8394Yvsrlxo encounter procedureBryheather Brysons DO Work Phone: [facility] Ctr-MRI [address] Closed Work Phone: Start: 01-23-2025 End: 64-45-2276vyawhsidbeNczus Brysons DO Work Phone: [facility] [place] Work Phone: Start: 01-18-2025 End: 85-52-8172zcgjovfdziOiqfr Kuns DO Work Phone: [facility] Work Phone: Start: 01-18-2025 End: 75-03-7611Pemfxjh encounter procedureBryan Brysons DO Work Phone: [facility]ician Group-[facility] Work Phone: Start: 30-34-2911Hjeiftropu RecurringBryan Brysons DO Work Phone: [facility] [place]-Physical Therapy [place] CreekStart: 01-09-2025 End: 61-56-3645Zznhefrjc encounterAlllucia Carmen Ketansebastian DO Work Phone: [facility] 230Start: 65-47-0803Cxd-patient / Non-visitBryheather Masseys DO Work Phone: [facility] Group-[facility] Work Phone: Start: 01-09-2025 End: 55-64-7146uggmbxcojiXbmgd Kuns DO Work Phone: [facility] Work Phone: Start: 01-09-2025 End: 82-30-4999Nrrtcfz encounter procedureBryan Brysons DO Work Phone: [facility] Group-[facility] Work Phone: Start: 52-12-5221Orbhnzpwah RecurringBryheather Brysons DO Work Phone: [facility] Ctr-Physical Therapy [place]Start: 12-29-2024 End: 78-30-9215xdigobiakbJdypx Brysons DO Work Phone: [facility] Work Phone: Start: 12-29-2024 End: 82-41-6741Rcfntvh encounter procedureBryheather Brysons DO Work Phone: [facility] Physician [facility] Work Phone: Start: 12-26-2024 End: 24-01-0972brixndaeddHpajn Kuns DO Work Phone: [facility] Work Phone: Start: 12-26-2024 End: 13-92-1300Wazbyrj encounter procedureBryheather Masseys DO Work Phone: [facility] Physician [facility] Pain Mg[facility] Work Phone: Start: 49-97-0519Qbudrhebxc RecurringCharan Masseys DO Work Phone: [facility] [place]-Physical Therapy [place]Start: 12-09-2024 End: 78-32-5539vduwwtemmeSmulh Kuns DO Work Phone: [facility] Work Phone: Start: 12-09-2024 End: 69-64-3084Zazxldh encounter procedureBryheather Brysons DO Work Phone: [facility] Work Phone: Start: 12-08-2024 End: 59-61-8608Szeekqp encounter procedureBryan Brysons DO Work Phone: [facility] Ctr-[facility] CtrStart: 12-08-2024 End: 33-48-8903nenemmxzezNybtm Kuns DO Work Phone: [facility] [place] Work Phone: Start: 51-26-2247Umxvzvxtrp RecurringBryheather Casey DO Work Phone: [facility] [place]-Physical Therapy [place]Start: 32-90-1307Jkv-patient / Non-visitCharan Casey DO Work Phone: [facility]ician Group-[facility] Mg[facility] Work Phone: Start: 2024 End: 93-94-1655Krsuthnft to same day surgery centerCharan Casey DO Work Phone: [facility] [place]-[facility]ive [facility] Work Phone: Start: 2024 End: 88-79-2202hfongryzeiGanrbj FelterFacility:[facility] Start: 10-25-2024 End: 55-14-0577Ldaahmr encounter procedureCharan Casey DO Work Phone: [facility]ician Group-[facility] Orthopedics Work Phone: Start: 10-25-2024 End: 68-14-3978eqzdigtchhFbgai A BaileyFacility:[facility] Cent[facility]art: 10-19-2024 End: 65-68-7962jnactrvwddWjfox Kuns DO Work Phone: [facility] Work Phone: Start: 10-19-2024 End: 82-11-9407Utwppbg encounter procedureCharan Casey DO Work Phone: [facility] Work Phone: Start: 10-17-2024 End: 60-79-4088Kuyjze outpatient visit 25 minutesAlllucia Munroe DO Work Phone: [facility] 230Comment on above:Type 2 diabetes [...] to 39.9 in adult (CMS/HCC)Start: 10-17-2024 End: 15-99-5014kpyiaxmjidBUDERDK M PETZNICKNot AvailableStart: 59-60-0379Fpj- patient / Non-visitDO Charan Casey Work Phone: [facility] [place] [place] Work Phone: Start: 09-20-2024 End: 88-59-8110Udjegfhjw to same day surgery centerDO Charan Casey Work Phone: [facility] [place] Work Phone: Start: 09-20-2024 End: 01-63-2565svznzsgkcsME Charan Casey Work Phone: [facility] [place] Work Phone: Start: 99-80-3194Zjo-patient / Non-visitDO Charan Casey Work Phone: [facility] [place] [facility] [place] Work Phone: Start: 09-12-2024 End: 77-59-3931enbdmnqsbmEO Charan Casey Work Phone: [facility] Work Phone: Start: 09-12-2024 End: 05-57-8105Xlzyxci encounter procedureDO Charan Casey Work Phone: [facility] [place] [facility] [place] Work Phone: Start: 09-07-2024 End: 83-91-6090Jmbcysb encounter procedureDO Charan Casey Work Phone: [facility] [place] Work Phone: Start: 09-07-2024 End: 62-55-6435tuaztcjxadRK Bryan Kuns Work Phone: [facility] Work Phone: Start: 09-02-2024 End: 87-80-9687thmllxucryXqswe KunsFacility:[facility] Start: 38-47-2785Jgmhxxmcll RecurringDO Charan Casey Work Phone: [facility]-Physical Therapy [place]Start: 08-25-2024 End: 34-53-2441Kcwjpt outpatient visit 25 minutesRosalinda Torres MD Work Phone: uh [facility] CenterComment on above:Coronary artery disease, unspecified vessel or lesion type, unspecified whether angina present, unsp ecified whether king salmon or transplanted heart; Elevated coronary artery calcium [...] unspecified whether serious comorbidity presentStart: 06-13-2024 End: 36-34-9410xavxkmtnntCC Bryan Kuns Work Phone: [facility] Work Phone: Start: 06-13-2024 End: 21-27-5502Fvwaxlp encounter procedureDO Charan Casey Work Phone: [facility] Work Phone: Start: 06-08-2024 End: 65-27-5892fjztbxpodtHM Bryan Kuns Work Phone: [facility] Work Phone: Start: 06-08-2024 End: 60-03-8252Zxvihid encounter procedureDO Charan Casey Work Phone: [facility] Group-[facility] Sleep Lab Work Phone: Start: 56-17-2213Nrz-patient / Non-visitDO Charan Casey Work Phone: [facility] Work Phone: Start: 05-31-2024 End: 24-72-7883Mwoabjduu to same day surgery centerDO Charan Casey Work Phone: [facility] [place]-[facility] Work Phone: Start: 05-31-2024 End: 95-43-9915yfvhgsucdxCU Charan Casey Work Phone: [facility] [place] Work Phone: Start: 05-23-2024 End: 52-08-9846ofyohqqevdDL Charan Casey Work Phone: [facility] Work Phone: Start: 05-23-2024 End: 08-29-8415Ruogyss encounter procedureDO Charan Casey Work Phone: [facility] [place] Work Phone: Start: 38-77-5324Qqv-patient / Non-visitDO Charan Casey Work Phone: [facility] [place] Work Phone: Start: 69-64-4383Udj-patient / Non-visitDO Charan Casey Work Phone: [facility] [place] Work Phone: Start: 45-09-0425Jun-patient / Non-visitDO Charan Casey Work Phone: [facility] Work Phone: Start: 03-17-2024 End: 12-05-1292cjtjppskzvLN Charan Casey Work Phone: [facility] Work Phone: Start: 03-17-2024 End: 54-60-7507Rmdbuno encounter procedureDO Charan Casey Work Phone: [facility] Work Phone: Start: 03-05-2024 End: 41-59-6979kkhfirtrmdQF Charan Casey Work Phone: [facility] [place] Work Phone: Start: 03-05-2024 End: 32-87-9511Atvpgno encounter procedureDO Charan Casey Work Phone: [facility] [place] Work Phone: Start: 03-01-2024 End: 17-48-0888czcabwzbqfAA Charan Casey Work Phone: [facility] Work Phone: Start: 03-01-2024 End: 51-80-8106Gcwztgp encounter procedureDO Charan Casey Work Phone: [facility] Nephrology Work Phone: Start: 02-29-2024 End: 65-92-5648exbqyqcudpAP Charan Casey Work Phone: [facility] [place] Work Phone: Start: 02-29-2024 End: 88-42-9468Tpavaic encounter procedureDO Charan Casey Work Phone: [facility] [place]art: 39-10-0423Orw-patient / Non-visitDO Charan Casey Work Phone: [facility]ician Group-[facility] Work Phone: Start: 02-22-2024 End: 67-25-5941ojiwzcwpiaPOTSUP M [facility] Centerart: 02-22-2024 End: 98-50-2390Vaokyg outpatient visit 25 minutesRosalinda Torres MD Work Phone: [facility] on above:Coronary artery disease, unspecified vessel or lesion type, unspecified whether angina present, unsp ecified whether king salmon or transplanted heart (Primary Dx); Essential hypertension; 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; Hyperlipidemia, unspecified hyperlipidemia type; Obstructive sleep apnea syndrome; Class 2 obesity with body mass index (BMI) of 37.0 to 37.9 in adult, unspecified obesity type, unspecified whether serious comorbidity present; Insulin-requiring or dependent type II diabetes mellitus ([facility])Start: 95-06-9589Mxx-patient / Non-visitDO Charan Casey Work Phone: [facility] Work Phone: Start: 12-81-7512Exx-patient / Non-visitDO Charan Casey Work Phone: [facility] Work Phone: Start: 02-04-2024 End: 80-02-9653Jrnrdcn encounter procedureDO Charan Casey Work Phone: [facility] BC Work Phone: Start: 01-11-2024 End: 94-15-7545llzvzbvusvKmjxm Kuns Other [employer] Other Start: 48-98-2290Hcjlmmzir encounterCharan Waters [facility] [place]Start: 12-31-2023 End: 36-58-1592wswsdabzbxZdnsa Kuns Other [email or web address] Other Start: 59-35-8653Ielhnsiil encounterCharan Waters Family [facility] [place]Start: 12-30-2023 End: 49-80-7862Lwdotnz encounter procedureDO Charan Casey Work Phone: [facility] Ctr-X-Ray [facility] CtrStart: 12-30-2023 End: 42-50-6441egpjzjmlwdKD Charan Casey Work Phone: [facility] Ctr Work Phone: Start: 00-01-3882Nuczry outpatient visit 15 minutes Charan Waters [facility] [place]Start: 12-30-2023 End: 31-46-4652Uzlcnyu encounter procedureDO Charan Casey Work Phone: [facility] Physician Group-Start: 11-26-2023 End: 60-91-8928jhhwtsavxbRF Charan Casey Work Phone: [facility] Ctr Work Phone: Start: 11-26-2023 End: 87-41-2509Fdkguor encounter procedureDO Charan Casey Work Phone: [facility]: 11-06-2023 End: 51-76-7511ywuzlpmshpOmxhi Kuns Other [employer] Other Start: 56-55-5888Bhdsfgdci encounterCharan DelarosaG Referral CoordinatorStart: 03-01-5558Ooswcwju care educationDaMarshall Medical Center North Coordinated Care ClinicStart: 62-81-2888Gljqddnoa by computer linkDaGadsden Regional Medical Center Coordinated Care ClinicStart: 11-05-2023 End: 69-83-8392ladgkjmtxhMR Charan Casey Work Phone: [employer] Other Start: 11-05-2023 End: 20-07-9515Atzmsdceak RecurringDO Charan Casey Work Phone: [facility] Ctr-Diabetes Care Center Work Phone: Start: 33-72-2316Dfuihfcntw RecurringDO Charan Casey Work Phone: [facility] Work Phone: Start: 11-03-2023 End: 62-98-0160tkwgjniyvrCqwny Kuns Other noHarri [employer] Other Start: 81-67-0634Dndnbspge encounterBryheather Waters Family Medicine [place]Start: 10-28-2023 End: 81-27-3195fkzvdtiegaLsphcy Felter Other noHarri [employer] Other Start: 42-99-6320Wpowdx outpatient visit 15 minutes Blas FeltNatalie Pain Management [place] CreekStart: 42-36-4671Phazvkqoo encounter Blas FelterFPG [facility] Management [place] CreekStart: 10-28-2023 End: 60-94-5671Tbjylec encounter procedureDO Charan Casey Work Phone: [facility] Work Phone: Start: 10-21-2023 End: 88-02-6541ddxvgcvovcLrjrsu Holt Other [facility] [employer] Other Start: 82-18-4271Tgvezm outpatient visit 15 minutes Blas BellamyFPRuthie Urgent Care Forest View Hospitaltart: 10-21-2023 End: 23-79-7813Tekwjkc encounter procedureDO Charan Casey Work Phone: [facility] [place] Work Phone: Start: 10-19-2023 End: 29-94-8908khnauyirvbYgnvei Felter Other [email or web address] Other Start: 62-96-3825Wcgehjepy encounterThomas FelterFPG Pain Management [place] CreekStart: 10-07-2023 End: 78-93-8083cqmugswxfhDttfw Kuns Other noHarri [employer] Other Start: 18-85-9055Vpuzhcfxj encounterCharan Waters Family Medicine [place]Start: 10-06-2023 End: 76-83-8933Acprwozzy to same day surgery centerDO Charan Casey Work Phone: [facility] Ctr-Digestive Health Work Phone: Start: 10-06-2023 End: 61-10-4023cjtcpwllckBT Charan Casey Work Phone: [facility] Ctr Work Phone: Start: 09-23-2023 End: 62-04-2654hbqvlupkzoZmtbdk Felter Other noHarri [employer] Other Start: 28-21-4884Dayrrm outpatient visit 15 minutes Blas Berger [facility] [place]Start: 09-15-2023 End: 96-94-2906igffthxprvMwhhr Sole Other noHarri [employer] Other Start: 45-01-8753Ijrfxj outpatient visit 25 minutes Elpidio QadirFPG NephrologyStart: 09-14-2023 End: 36-74-1265yplobvhaukTQ Bryan Kuns Work Phone: [facility] Ctr Work Phone: Start: 09-14-2023 End: 18-96-5417Rwiossv encounter procedureDO Charan Casey Work Phone: [facility] Ctr-Lab [facility] CenterStart: 09-08-2023(Procedure) ShortThomas FelterikaMet[facility]health [facility] OutPtStart: 09-08-2023 End: 85-46-2244Bnfhpawwm to same day surgery centerDO Charan Casey Work Phone: [facility] Ctr-Digestive Health Work Phone: Start: 09-08-2023 End: 61-44-2060nkpjzmkgpqGL Charan Casey Work Phone: [facility] Ctr Work Phone: Start: 08-25-2023 End: 97-14-8285slwohoqcqoReee Asaad Other [employer] Other Start: 49-75-9375Xqobupjog encounterImaandrea AsaadFPG Referral CoordinatorStart: 08-18-2023 End: 68-95-4257kwsafsidsvVbstq Kuns Other [employer] Other Start: 06-10-6002Ustjaecld encounterCharan CaseyFPG Family Medicine [place]Start: 08-17-2023 End: 94-60-3440dpxsbkjbtsXbbwhh Felter Other [facility] [employer] Other Start: 10-17-0309Iwguqj outpatient visit 25 minutes Blas Berger [facility] [place]Start: 08-17-2023 End: 21-85-4324Gkgxryl encounter procedureDO Charan Casey Work Phone: [facility] Ctr-XRay [facility] Start: 38-37-4504Ampihd outpatient visit 15 minutesDale BraunTurkey Creek Medical Center NeurosurgeryStart: 08-11-2023 End: 41-60-3528qsnpwmmkyyPE Charan Casey Work Phone: [facility] Ctr Work Phone: Start: 08-11-2023 End: 83-26-7701Otwrdxj encounter procedureDO Charan Casey Work Phone: [facility] Ctr-X-Ray [facility] CtrStart: 08-05-2023 End: 44-98-8137oxtqpzuuqbZfqfw Kuns Other [employer] Other Start: 76-81-5374Zflfpg outpatient visit 25 minutes Charan Waters [facility] [place]Start: 07-02-2023 End: 49-86-9188cyhrqvzxacVogpz Kuns Other [place] [employer] Other Start: 20-62-4726Mpyipuwli encounterCharan Waters Family Medicine [place]Start: 06-08-2023 End: 38-08-9095dqecudscaiIQ Charan Casey Work Phone: [facility] Ctr Work Phone: Start: 06-08-2023 End: 20-83-6606Pqjpeypsxf RecurringDO Charan Casey Work Phone: [facility] Ctr-Physical Therapy [facility]art: 05-28-2023 End: 20-29-1827zmemljtmdgDbvq Fitt Other [place] [employer] Other Start: 72-44-1198Axzpdyky care educationDa Fitt [facility] Hospitaltart: 14-07-5822Qxjfabwanl RecurringDO Charan Casey Work Phone: [facility] Ctr-Diabetes Care Center Work Phone: Start: 18-22-8733Tvswjk outpatient visit 25 minutes Charan Waters [facility] [place]Start: 05-19-2023 End: 58-80-7766egrfzouifuWX Charan Casey Work Phone: [facility] Ctr Work Phone: Start: 05-19-2023 End: 18-56-0841Soaifiq encounter procedureDO Charan Casey Work Phone: [facility] Ctr-X-Ray [facility] CtrStart: 05-05-2023 End: 06-52-3371gxvnyggamsFipba Kuns Other [employer] Other Start: 33-79-7459Slnwmqwfn encounterYeisonheather DelarosaG Family Medicine [place]Start: 08-46-1807Usulkz outpatient visit 25 minutesCharan Dani Brysonbryn Work Phone: [phone]-Jbgsc [facility] [address] DO Work Phone: Start: 16-95-5848arqyhqiqdrKpulatoryDr. Charan Casey Facility:[id number]: 04-13-2023 End: 14-32-2839wkidkfzmreDCOGU D [facility] OSHKOSHFacility:E0Vnjyk: 04-07-2023 End: 65-22-6583msxiexlctnXUTFKV R ZIEBERFacility:V7Xzkkt: 00-21-4963Kclolkbfv for preprocedural laboratory examinationPETER D [facility] Start: 04-06-2023 End: 51-84-2570zrsnyxkpfxBzdnt Kuns Other [employer] Other Start: 73-55-7429Lugstzfjc encounterYeisonheather BrysonRachelG Family Medicine [place]Start: 79-22-3238Ourhrh outpatient visit 25 minutesCharan MasseybrynERICG Family Medicine [place]Start: 03-31-2023 End: 14-19-4779afsesecnljXRZZE D [facility] [employer] Other Start: 03-31-2023 End: 37-12-0178Fabtfseua for preprocedural laboratory examinationPETER D [facility] OSHKOSHFacility:D6Jchpe: 03-26-2023 End: 20-23-9445lytweqatpbMpvhb Kuns Other [employer] Other Start: 51-55-0897Hsztpcdrp encounterYeisonheather BrysonRachelG Family Medicine [place]Start: 03-23-2023 End: 85-92-0321mzgquykulyUHFZGC R ZIEBERFacility:U2Rzpxr: 03-10-2023 End: 66-28-9382fbshhnysgpEspky Sole Other noHarri [employer] Other Start: 51-23-5391Qfthep outpatient visit 25 minutes Elpidio QadirFPG NephrologyStart: 03-06-2023 End: 44-05-9208ajcxjozqjoBZ Charan Casey Work Phone: [facility] Ctr Work Phone: Start: 03-06-2023 End: 27-11-8095Ghawbgb encounter procedureDO Charan Casey Work Phone: [facility] Ctr-Lab [facility]art: 38-61-4055Wtvqra outpatient visit 15 minutesChristopher CocoOhioHealth [facility] Ctr SouthStart: 19-79-4920Lhfsjtgdw encounterCharan ODOM Family Medicine [place]Start: 03-04-2023 End: 92-51-4715rrgiyjkqraTO Charan Casey Work Phone: [facility] [employer] Other Start: 03-04-2023 End: 16-24-6776Hpvchag encounter procedureDO Charan Casey Work Phone: [facility] Ctr-Sleep Lab Work Phone: Start: 03-03-2023 End: 99-81-0588pqhvxabgvjQBAABS R ZIEBERFacility:A1Pycru: 02-17-2023 End: 26-45-5395zybeckhzyxCEQQA V WESTFacility:S6Fxmtr: 02-16-2023 End: 38-54-8889jzqfspqcdbThkma Kuns Other noHarri [employer] Other Start: 35-49-3572Bjbcybkyl encounterBryheather DelarosaG Family Medicine [place]Start: 02-05-2023 End: 60-75-1031frrbcbrhmpPaema Kuns Other [employer] Other Start: 83-32-6179Tonvfiuvi encounterCharan CaseyRuthie Family Medicine [place]Start: 02-03-2023 End: 75-88-2872phgptgrdynRRQRZ V WESTFacility:S1Iqmzs: 01-27-2023 End: 93-66-0706Vwuxhpn encounter procedureDO Charan Casey Work Phone: [facility] Ctr-Center for Coordinated Care Work Phone: Start: 01-27-2023 End: 89-05-5661kglimnzghrHV Bryan Kuns Work Phone: [facility] Ctr Work Phone: Start: 67-47-5571Yjllkm Injection one Vaccine (Admin Chg)[facility] Coordinated Care ClinicStart: 01-20-2023 End: 33-38-2555jqzumuwqkuQCTLCL R ZIEBERFacility:D1Mvcxv: 01-19-2023 End: 28-19-6995zciuullrmmQkrjm Kuns Other [employer] Other Start: 50-69-2820Lyfafhmiv encounterCharan Waters [facility] [place]Start: 12-29-2022 End: 98-01-0373zpzccbifekDGUNTQ R ZIEBERFacility:L9Wfccq: 57-80-6326Tjouxgkmu for preprocedural cardiovascular examinationPETER D [facility] HospitalStart: 60-92-0725Zdpvexoxu for preprocedural laboratory examinationPETER D [facility] Southtart: 12-23-2022 End: 49-86-9039bdftmhefivAJRJM D [facility]ALTHANDERFacility:B8Eyzbm: 12-23-2022 End: 83-72-6868Hqjkoiwoe for preprocedural cardiovascular examinationPETER D [facility] OSHKOSHFacility:G7Ijtik: 11-26-2022 End: 21-14-6880wcswqgpilyEAXLP V WESTFacility:J1Mzglc: 11-12-2022 End: 37-90-5291hidbmaylgtISBUQA R ZIEBERFacility:D3Ouzab: 70-85-3546vxbkqdgbzu Dr. Charan CaseyFacility:[id number]: 10-28-2022([facility] INJ) [facility] Injection Eliud [facility]herprov[facility] Coordinated Care ClinicStart: 10-28-2022 End: 91-47-3701ctbvusngxiGX Charan Casey Work Phone: [facility] [place] Work Phone: Start: 10-28-2022 End: 35-99-5081Czmvyxf encounter procedureDO Charan Casey Work Phone: [facility] [place] for Coordinated CareStart: 10-16-2022([facility] C Vac) [facility] Covid VaccineDaMarshall Medical [facility] North Coordinated Care ClinicStart: 10-16-2022([facility] INJ) [facility] InjectionDawn [facility] Coordinated Care ClinicStart: 70-34-9060Dhjblbhci encounterPopeye ODOM NephrologyStart: 10-16-2022 End: 73-21-1291kscutmchhqSD Bryan Kuns Work Phone: [place] [employer] Other Start: 10-16-2022 End: 54-66-0229Qsjyjjc encounter procedureDO Charan Casey Work Phone: [facility] [place] for Coordinated CareStart: 10-15-2022 End: 22-11-9205fvffonwxxfLQ Bryan Kuns Work Phone: [facility] [place] Work Phone: Start: 10-15-2022 End: 56-81-9505Xvszhxb encounter procedureDO Charan Casey Work Phone: [facility] [place]-MRI Strub RdStart: 10-13-2022 End: 60-02-8617wegqmyjfccEH Bryan Kuns Work Phone: [facility] Ctr Work Phone: Start: 10-13-2022 End: 86-05-5096Zylxtjf encounter procedureDO Charan Casey Work Phone: [facility] Ctr-MRI Strub RdStart: 09-24-2022 End: 21-25-5895fwlhhbdojfVmmgs Sole Other noHarri [employer] Other Start: 71-58-0831Wgqwbs outpatient visit 25 minutes Elpidio QadirFPG [facility] [place] SpringsStart: 09-02-2022 End: 74-44-3289sutlelsnvgNdjjt Kuns Other noHarri [employer] Other Start: 20-35-4956Rjkigb outpatient visit 25 minutes Charan Waters [facility] [place]Start: 08-13-2022 End: 82-21-6332Pibrvho encounter procedureDO Charan Casey Work Phone: [facility] Ctr-Lab [facility]: 08-07-2022 End: 00-84-1542purfelsuuoYqtvj Kuns Other [facility] [employer] Other Start: 59-84-9183Xweyziksd encounterCharan Waters [facility] [place]Start: 07-27-2022 End: 04-59-3556Ipdcygkkf department patient visitDO Charan Casye Work Phone: [facility] Ctr-Emergency RoomStart: 07-16-2022 End: 53-74-2151zcugecdlxzVuxef Kuns Other noHarri [employer] Other Start: 73-77-3721Ztfvqwzwb encounterCharan Waters [facility] [place]Start: 07-02-2022 End: 84-55-6448icicqfpikxZzape Kuns Other noHarri [employer] Other Start: 66-03-7689Qsrmrrhbk encounterCharan MasseysFPG Family Medicine [place]Start: 14-93-1259Dnzdjc outpatient visit 25 minutesCharan Casey Work Phone: [phone]-Pfofc [facility] [address] DO Work Phone: Start: 04-30-2022 End: 55-63-0494ifawyvezorXzlnmmogsat Coco Other [facility] [employer] Other Start: 27-85-2906Qhyotr outpatient visit 10 minutes Federico BoschDayton Osteopathic HospitalStart: 04-14-2022 End: 66-49-9376vveshejfoyZftzn Kuns Other [facility] [employer] Other Start: 20-08-2993Dcpvbf outpatient visit 25 minutes Charan CaseyRuthie Family Medicine [place]Start: 04-07-2022 End: 16-03-8884vklxpcilvfMruqe Kuns Other [facility] [employer] Other Start: 43-11-1137Rfxdvueyq encounterBryheather BrysonsFPG Family Medicine [place]Start: 04-02-2022 End: 55-68-6706beyrlbluorAvowo Kuns Other [facility] [employer] Other Start: 55-66-0435Zpkuhswsi encounterBryheather MasseysFPG Family Medicine [place]Start: 03-31-2022 End: 46-89-3862tetjnlbpmvWpcne Kuns Other [employer] Other Start: 69-31-0959Bwugkfyrx encounterBryheather MasseysFPG Family Medicine [place]Start: 89-28-0699JJGNDQQKU, Provider: Rosalinda Torres, Status: Pen, Time: 1:00 PMCharan Dani Casey Work Phone: [phone]-Enmhk [facility] [address] DO Work Phone: Start: 37-31-4159Gdkxi UpdateYeisonheather Casey Work Phone: [phone]-Dedqo [facility] [address] DO Work Phone: Start: 03-13-2022 End: 98-48-6227mehzkdhlixZndsu Kuns Other [email or web address] Other Start: 02-37-0343Aeenjylna encounterCharan DelarosaG Family Medicine [place]Start: 44-10-0483Yrgpq UpdateCharan Dani Casey Work Phone: [phone]-Oawke [facility] [address] DO Work Phone: Start: 03-07-2022 End: 66-13-7362cioqjgdrzeAqxm Fitt Other noHarri [employer] Other Start: 48-27-4369Zjssezegj encounterRenée Angelo Coordinated Care ClinicStart: 03-04-2022 End: 13-13-6179ygiowpxqkeQccku Kuns Other [email or web address] Other Start: 95-38-0496Kdkezmbxa encounterCharan DelarosaG [facility] CareStart: 02-20-2022 End: 24-20-5855tzyvkyhleaTrhjo Sole Other [email or web address] Other Start: 86-03-0264Mqmito outpatient visit 25 minutes Elpidio QadirFPG NephrologyStart: 02-10-2022 End: 40-69-7117rbhcoqjfgeYqixu Kuns Other [email or web address] Other Start: 78-74-8871Ofxhybgas encounterBryheather CaseyFPG Family Medicine [place]Start: 02-07-2022 End: 26-07-4142pyuyydmfajUoato Kuns Other noHarri [employer] Other Start: 95-83-2201Xyqsap outpatient visit 25 minutes Charan CaseyFPG Family Medicine [place]Start: 02-05-2022 End: 84-29-4307lztpljufywCxuhn Kuns Other noHarri [employer] Other Start: 04-09-6215Nnnvxmqkx encounterBryheather MasseysFPG Family Medicine [place]Start: 01-21-2022 End: 00-54-3803ornbiyfxvuDbpbh Kuns Other noHarri [employer] Other Start: 95-11-4138Jirslsvgk encounterBryheather CaseyFPG Family Medicine [place]Start: 12-31-2021 End: 13-80-6884sqwriuercxSyzw Chatterjee Other noHarri [employer] Other start: 36-00-9462Mwdmav outpatient visit 15 minutes Thierno ChatterjeeRuthie [facility] FacilityStart: 12-07-2021 End: 78-94-7557inkrjsovjrRjcpg Kuns Other noHarri [employer] Other Start: 92-66-3092Rquoipznb encounterBryheather CaseyFPG Family Medicine [place]Start: 12-06-2021 End: 04-57-0657zxzmilvgebJldpr Kuns Other noHarri [employer] Other Start: 01-61-9417Rmommtwwi encounterBryheather CaseyFPG [facility] CareStart: 12-03-2021 End: 15-47-1167npnjnfxjaxBihms Kuns Other [facility] [employer] Other Start: 24-85-5051Oksrdc outpatient visit 15 minutes Charan Waters [facility] [place]Start: 10-01-2021 End: 93-96-6111rvgtqiilsnXkciyf Felter Other [facility] [employer] Other Start: 18-52-8170Zfnizz outpatient visit 25 minutes Blas Berger [facility] [place] End: 14-21-7609Uubdqxa encounter statusCharan Casey Work Phone: [phone]-Jadzd [facility] [address] DO Work Phone: Procedures DateProcedureProcedure DetailPerforming ClinicianStart: 66-10-2939Usznstxz Identification OnlyCharan Casey DO Work Phone: Start: 80-93-8754C-ray of both feetCharan Casey DO Work Phone: Start: 83-00-2821Hbzlzcvdnq glycosylated w3tOxntgpv Carmen Petznick DO Work Phone: Start: 10-38-8113ZUH of right shoulderCharan Casey DO Work Phone: Start: 86-92-8477HHI (POC)Charan Casey DO Work Phone: Start: 25-54-2574Gihpy chest X-rayCharan Casey DO Work Phone: Start: 91-39-3254Ygcvf anesthetic lumbar facet joint nerve blockCharan Casey DO Work Phone: Start: 50-42-4733Gzhyp X-ray of right shoulderCharan Casey DO Work Phone: Start: 93-66-4157Ihjktmsxhh glycosylated f1dMsnzzui M Petznick DO Work Phone: Start: 62-64-1361Bnqpp anesthetic sacral epidural blockDO Charan Casey Work Phone: Start: 73-95-8664Wyyqmgtai mammography of bilateral breastsDO Charan Casey Work Phone: Start: 01-93-9614Ftmpvfzna of local anesthetic into sacroiliac jointDO Charan Casey Work Phone: Start: 06-67-3248BIX of lumbar spine with contrastDO Charan Casey Work Phone: Start: 44-34-6135Csjnn cultureDO Charan Casey Work Phone: Start: 05-92-7153Osuut chest X-rayDO Charan Casey Work Phone: Start: 27-68-8664Pzgqgev of placement of stent for coronary artery disease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Rosalinda Torres MD Work Phone: Start: 61-79-5192Hmowrld of cholecystectomyS/P laparoscopic cholecystectomyAllison Carolina BASSETT Work Phone: Start: 85-96-6805Xctrozzuc colonoscopyDO Charan Casey Work Phone: Start: 60-48-1787GspeuqlfbqqYldeun Ibrahim MD Work Phone: Start: 45-91-8450Yaljsjtgr of local anesthetic into sacroiliac jointDO Charan Casey Work Phone: Start: 36-71-9143Bbndz X-ray of right hipDO Charan Casey Work Phone: Start: 45-95-9242S-ray of lumbar spine, six views including bending viewsDO Charan Casey Work Phone: Start: 63-23-3860Jqucc chest X-rayDO Charan Casey Work Phone: Start: 34-78-8884Jpxkrjazucu of thoracic spineDO Charan Casey Work Phone: Start: 98-51-1081F-ray of lumbar spine, four or more viewsDO Charan Casey Work Phone: Start: 64-12-7962Dsuli cultureDO Charan Casey Work Phone: Start: 69-91-3318TSO of right ankleDO Charan Casey Work Phone: Start: 37-56-3746RVQ of right footDO Charan Casey Work Phone: Start: 59-69-6560LPY of left ankleDO Charan Casey Work Phone: Start: 46-33-7338MTT of left footDO Charan Casey Work Phone: Start: 49-70-3578QG of bilateral feetDO Charan Casey Work Phone: Start: 20-98-3482Hchfa volume recorder pneumoplethysmographyDO Charan Casey Work Phone: Start: 25-42-8938G-ray of left footDO Charan Casey Work Phone: [...] footBryan P Kuns Work Phone: ParathyroidectomyBryan P [employer] Work Phone: Procedure on backBryan P Kuns Work Phone: Procedure on neckBryan P [employer] Work Phone: Total colonoscopyBryan P Runa Work Phone: Comment on above:30Nov2018; Plan of Treatment DateCare ActivityDetailAuthorStart: 16-63-3350Ifuswtaec for malignant neoplasm of [facility]: 27-81-6238Kddkyqwzvcar Vaccine: Pediatrics (0 to 5 Years) and At-Risk Patients (6 to 64 Years) (3 - PPSV23 or PCV20)Pneumococcal Vaccine: Pediatrics (0 to 5 Years) and At-Risk Patients (6 to 64 Years) (3 - PPSV23 orPCV20)[facility]: 62-29-3527Jomczkzvbxed Vaccine: Pediatrics (0 to 5 Years) and At-Risk Patients (6 to 64 Years) (3 of 3 - PPSV23 or PCV20)Pneumococcal Vaccine: Pediatrics (0 to 5 Years) and At-Risk Patients (6 to 64 Years) (3 of 3 - PPSV23 or PCV20) [facility]: 10-24-2025 End: 57-84-2922Fdkygem encounter vsmxuurho00/25/2025 10:30 AM EST [facility] [address] [place] [address] Shaina Munroe, [address] [place] [address] [facility] 230 Start: 87-82-2998Yojxicsy screeningDiabetes: Retinopathy ScreeningNOMT HealthcareStart: 08-15-2025 End: 62-24-2532Kcgpioz encounter procedureNOMS [facility] 230Start: 07-31-2025 Influenza vaccinationNOMT HealthcareStart: 07-27-2025 End: 25-26-2656Jxxhigz encounter tcpjiovqx45/28/2025 8:15 AM EDT Office Visit [facility] [place] [facility] [address] [place] [address] Shaina Munroe, DO [address] [place] [address] ArrivedNOMS [facility] 230Comment on above:ArrivedStart: 03-28-2025 End: 64-26-7900Jxalhkv encounter ugtlagpzw59/29/2025 8:50 AM EDT Office Visit [facility] [address] [place] [phone] Rosalinda Torres MD [address] [place] [address] [facility]: 02-14-2025 End: 38-24-5107Edugwwa encounter /18/2025 9:30 AM EDT Office Visit [facility] [address] [place] [phone] Shaina Munroe, DO [address] [place] [address] [facility] 230Start: 04-92-1865NM Shoulder - right WO [facility] [place] [facility] Centertart: 31-92-4512UER of right shoulder MR shoulder RT [facility] Centertart: 01-17-2025 Hemoglobin A1c measurementDiabetes: Hemoglobin T7ZLBLZCooper County Memorial HospitalStart: 93-94-3081ExxwifqfgLouis Stokes Cleveland VA Medical Centertart: 81-28-6888MpylhhiliLouis Stokes Cleveland VA Medical Centertart: 08-25-2024 End: 82-09-9512Zooxdmm encounter /26/2024 8:40 AM EDT Office Visit [facility] [address] [place] [address] Rosalinda Torres MD [address] [place] [address] [facility]: 07-82-7995RDLSZ-19 Vaccine ( season)COVID-19 Vaccine ( season)[facility] Start: 30-23-5117Wizmqzrnd vaccinationInfluenza Vaccine (#1)[facility] Start: 46-68-5250OhdujbbeiLouis Stokes Cleveland VA Medical Centertart: 33-44-7297Dflkvcev identified in Urine by CultureLouis Stokes Cleveland VA Medical Centertart: 02-29-2024 Urine cultureUrine [facility]tart: 61-85-5533HLJ, Provider: Rosalinda Torres, Status: Pen, Time: 9:10 AMFUV, Provider: Rosalinda Torres, Status: Pen, Time: 9:10 [facility] DO Work Phone: Start: 51-93-6148CzawuveuhOhio State University Wexner Medical Center Start: 70-19-9458SxtcreblgLouis Stokes Cleveland VA Medical Centertart: 90-02-2773JTWTO-19 Vaccine ( season)COVID-19 Vaccine ( season)[facility]: 21-31-7271Zvjolkgkk vaccinationInfluenza Vaccine (#1)[facility] CenterStart: 25-21-4170Rvyybmwx identified in Urine by [facility] Hospitaltart: 23-57-7006HTS, Provider: Rosalinda Torres, Status: Pen, Time: 9:00 AMFUV, Provider: Rosalinda Torres, Status: Pen, Time: 9:00 [facility] 250 DO Work Phone: Start: 24-65-3010VQcY/Tdap/Td Vaccines (2 - Td or Tdap)DTaP/Tdap/Td Vaccines (2 - Td or Tdap)[facility] Start: 78-70-2884ZGZTGJGYP, Provider: Rosalinda Torres, Status: Pen, Time: 1:00 PM SURGNONUH, Provider: Rosalinda Torres, Status: Pen, Time: 1:00 PM-[facility] 250 DO Work Phone: Start: 03-15-5336QJF, Provider: Rosalinda Torres, Status: Pen, Time: 1:50 PMFUV, Provider: Rosalinda Torres, Status: Pen, Time: 1:50 PM-[facility] 250 DO Work Phone: Start: 83-63-1818NKS patients and/or patients aged 60+ years (1 - 1-dose 60+ series)RSV patients and/or patients aged 60+ years (1 - 1-dose 60+ series)[facility]: 67-27-4964Xnicarosx for malignant neoplasm of breastMammogramUnSouthwest General Health Center: 75-26-0714Rtermhgnd for malignant neoplasm of cervixNOMS HealthcareStart: 93-80-1969PQaZ/Tdap/Td Vaccines (1 - Tdap) DTaP/Tdap/Td Vaccines (1 - Tdap)[facility]: 59-09-3690Dcmvckflr for malignant neoplasm of cervixUnSouthwest General Health Center: 93-99-3745Dcvsl screening for proteinDiabetes: Urine Protein ScreeningProMedica Flower Hospital: 96-66-5492Fwyerujtg C screening Hepatitis C ScreeningUnSouthwest General Health Center: 40-81-3939Mqaqjcuj foot examinationDiabetes: Foot ExamUnSouthwest General Health Center: 69-87-8930Aaozmvwa screeningDiabetes: Retinopathy ScreeningProMedica Flower Hospital: 94-54-1503CIQ Vaccines (1 of 1 - Standard series)MMR Vaccines (1 of 1 - Standard series)[facility]: 1960 Hemoglobin A1c measurementDiabetes: Hemoglobin I5GFzoqkvkpaqProMedica Flower Hospital: 56-65-4734FCA screeningHIV ScreeningUnSouthwest General Health Center: 95-78-9754Adshi panelLipid PanelUnSouthwest General Health Center: 1960Medicare Annual Wellness (AWV)Medicare Annual Wellness (AWV)[facility] HealthcareStart: 1960Medicare Annual Wellness VisitMedicare Annual Wellness Visit (AWV)[facility] CenterStholliday: 1960 Screening for malignant neoplasm of colonUnSouthwest General Health Center: 95-74-5931Rrkxjt Adult PhysicalYearly Adult PhysicalUnLima Memorial HospitalComprehensive metabolic 2000 panel - Serum or PlasmaOhio State University Wexner Medical CenterMR Lumbar spine WO and W contrast [facility] HospitalMR Shoulder - right WO contrastOhio State University Wexner Medical CenterPatient EducationMetrohealth [facility]tr Work Phone: Patient referralMetrohealth Cleveland [facility]tr Work Phone: Renal function 1999 panel - Serum or PlasmaOhio State University Wexner Medical CenterRheumatoid factor [Units/volume] in Serum or Plasma [facility] Immunizations Immunization DateImmunizationNotesCare QxyhjzqpHrvegffy32-80-1564ftygow vaccine recombinantDawn Fitt Other [facility]11-29-2022zoster vaccine recombinantAaron LePoire Other [facility]11-17-2022influenza virus vaccine, unspecified formulationDO Charan Casey Work Phone: [facility]11-17-2022influenza, seasonal, injectableRosalinda Torres MD Work Phone: [facility] Work Phone: [phone]t SARS-CoV-2 VaccinationRosalinda Torres MD Work Phone: [facility] Work Phone: [phone]-77 Moderna (BIvalent)Renée Fitt Other [facility]11-17-2022influenza, high dose seasonal, preservative-freeDawn Fitt Other [employer] Other [id number], injectable, quadrivalent, preservative freeDawn Fitt Other noWell[facility] [employer] Other [id number] COVID-19 Vaccine 100 MCG/0.5ML Intramuscular SuspensionBryan P [employer] Work Phone: [facility]10-27-2021Moderna SARS-CoV-2 Booster VaccinationAllison Petznick DO Work Phone: noCooper County Memorial HospitalNzbzbeohcg90-69-6581tfcclxtt influenza, intradermal, preservative freeBryan P Kuns Work Phone: [phone]-QofwnLaura Ville [address] DO Work Phone: [phone]-90 Vaccine Moderna - Documentation Purposes OnlyThomas Felter Other [facility]12-30-2020Moderna COVID-19 Vaccine 100 MCG/0.5ML Intramuscular SuspensionBryan P [employer] Work Phone: [facility]10-01-2019influenza virus vaccine, unspecified formulationBryan P Kuns Work Phone: mp-[facility] 250 DO Work Phone: [phone], injectable, quadrivalent, preservative freeAllison Petznick DO Work Phone: noCooper County Memorial HospitalFtgyduakxd28-70-6474gtrheclgq, seasonal, injectableThomas Felter Other [facility]10-01-2018influenza, seasonal, injectableThomas Felter Other [facility]10-01-2018influenza, seasonal, injectable, preservative freeAllison Petznick DO Work Phone: noCooper County Memorial HospitalSiuvoojdty07-83-4411uxaiuwkbi virus vaccine, unspecified formulationDO Charan BrysonPowerit [employer] Work Phone: [facility]01-03-2017influenza, seasonal, injectable, preservative freeCharan Casey Work Phone: [phone]-ZqcjnJacqueline Ville [address] DO Work Phone: [phone]ds conjugate vaccine, 13 valent Blas Ortiz Other [facility]01-03-2017influenza, high dose seasonal, preservative-freeBlas Ortiz Other [facility] [employer] Other [id number], injectable, quadrivalent, preservative freeDawn Fitt Other [employer] Other [id number]t polysaccharide vaccine, 23 valentYeisonan P Jacinto Work Phone: [phone]-FuvdaJacqueline Ville [address] DO Work Phone: [phone]cahw polysaccharide vaccine, 23 valentCharan Casey Work Phone: [facility]10-10-2012influenza virus vaccine, unspecified formulationDO Charan Casey Work Phone: [facility]10-10-2012tetanus toxoid, reduced diphtheria toxoid, and acellular pertussis vaccine, adsorbed Blas Ortiz Other [facility]10-10-2012influenza virus vaccine, split virus (incl. purified surface antigen)Blas Ortiz Other [facility] [employer] Other influenza virus vaccine, unspecified formulationCharan Casey Work Phone: [phone]-NfztbJacqueline Ville [address] DO Work Phone: Comment on above:2010NEGATED: Highlighted row has not occurred!17-53-1968xtaukylmr, injectable,quadrivalent, preservative free, pediatricThomas Felter Other [employer] Other Payers DatePayer CategoryPayerPolicy [id number] 2024MedicareUNITED HEALTHCARE MEDICARE UNITED HE[employer] MEDICARE [id number] 2024-Present [address] [place], [place] [id number] 2024Medicare (Managed Care)[id number] [id number] 2.16.840.1.250670.3.57[id number] 2.16.840.1.375863.3.57[id number] 2.16.840.1.871927.3.57[id number] 2.16.840.1.884983.3.57[id number] 2.16.840.1.617877.3.579.2.40928-26-8014Hfmevli0603875 2.16.840.1.943844.3.57[id number] 2.16.840.1.913447.3.57[id number] 2.16.840.1.256470.3.579.2.58669-75-4929Vqllovd2627003 2.16.840.1.618158.3.579.2.74460-31-6736Wyvcryy9253085 2.16.840.1.250731.3.579.2.97272-53-1073Errtglx5603475 2.16.840.1.287715.3.579.[id number] 2.16.840.1.883649.3.579.[id number] 2.16.840.1.135918.3.579.[id number] 2.16.840.1.180856.3.57[id number] 2.16.840.1.055192.3.579.[id number] 2.16.840.1.214656.3.57[id number] 2.16.840.1.295120.3.57[id number] 2..840.1.356870.3.57[id number] 2.16840.1.062002.3.57[id number] 2.840.1.630995.19 [id number] Pay [id number] Social History DateTypeDetailFacilityStart: 12-04-2023 End: 63-11-1101Cvtzivzpgh caffeine consumptionOccasional caffeine consumption NOMS HealthcareComment on above:Coffee;Start: 12-04-2023 End: 50-03-1914Voy Assigned At [facility] HealthcareStart: 07-27-2022 End: 39-90-2810Zwsdglj smoking status NHISNever smoked tobacco (finding) [facility] Centertart: 56-15-4109Fnm Assigned At [facility] CenterFeDayton Osteopathic Hospitaltart: 05-19-2023 End: 74-23-7952Wbevski use and exposureSmokeless tobacco non-userUnLima Memorial Hospital Work Phone: Start: 12-04-2023 End: 35-18-1593Icvsiju intakeLifetime non-drinker (finding)[facility] Work Phone: Start: 22-74-4466Knt Assigned At BirthNot on file [facility] Work Phone: Start: 02-12-2024 End: 84-39-7776Jiskbouu to SARS-CoV-2 (event)Not sureFulton County Health CenterStart: 10-19-2024 End: 90-37-7710QicMdjtqc (finding)[facility] CenterDo you belong to any clubs or organizations such as tenriism groups, unions, fraternal or athletic groups, or [...] the mortgage or rent on time?NoNOMS HealthcareStart: 00-14-1607Scsoeet Comment caffeine: 1-2 cups per day coffeeNOMS HealthcareStart: 29-59-8695Zbpgzv identity Identifies as female gender (finding)[facility] Medical Equipment Procedure CodeEquipment CodeEquipment Original TextEquipment IdentifierDates Fusion, spine, lumbar, XLIFLATERAL STD 1 LEVEL CONSTRUCTFDAStart: 07-25-2020 Fusion, spine, lumbar, XLIFOrthopaedic bone screw, non-bioabsorbable, non-sterile+[id number] FDAStart: 76-55-5823Fcbfwg, spine, lumbar, XLIFBone- screw internal spinal fixation system, non-sterile+[id number] FDAStart: 95-60-8557Wgohon, spine, lumbar, XLIFSTRATOFUSE DBM 10CCFDAStart: 07-25-2020 Fusion, spine, lumbar, XLIFTIMBERLINE INTERBODYFDAStart: 54-95-0089Gpufnt, spine, lumbar, XLIFSpinal fusion graft kit [id number] FDAStart: 75-69-9866Dturns, spine, lumbar, XLIFBone-screw internal spinal fixation system, non-sterile+[id number] FDAStart: 51-41-2926Xmtkru, spine, lumbar, XLIFLATERAL STD 1 LEVEL CONSTRUCTFDA Start: 73-35-9801Lrzzlz, spine, lumbar, XLIFSTRATOFUSE DBM 10CCFDAStart: 17-24-1399Ehyeep, spine, lumbar, XLIFTIMBERLINE INTERBODYFDAStart: 07-25-2020 Fusion, spine, lumbar, XLIFLATERAL STD 1 LEVEL CONSTRUCTFDAStart: 07-25-2020 Fusion, spine, lumbar, XLIFSTRATOFUSE DBM 10CCFDAStart: 83-41-2545Vmlhma, spine, lumbar, XLIFTIMBERLINE INTERBODYFDAStart: 58-33-9570Tlhyru, spine, lumbar, XLIF LATERAL STD 1 LEVEL CONSTRUCTFDAStart: 03-83-6497Kaxkyo, spine, lumbar, XLIF STRATOFUSE DBM 10CCFDAStart: 73-41-0645Imjvbk, spine, lumbar, XLIFTIMBERLINE INTERBODYFDAStart: 25-13-5235Hmcknm, spine, lumbar, XLIFLATERAL STD 1 LEVEL CONSTRUCTFDAStart: 02-58-8536Oezaxt, spine, lumbar, XLIFSTRATOFUSE DBM 10CCFDA Start: 61-00-2837Rjrgqs, spine, lumbar, XLIFTIMBERLINE INTERBODYFDAStart: 73-20-8221Bfwmgg, spine, lumbar, XLIFLATERAL STD 1 LEVEL CONSTRUCTFDAStart: 87-67-3148Feppuz, spine, lumbar, XLIFSTRATOFUSE DBM 10CCFDAStart: 07-25-2020 Fusion, spine, lumbar, XLIFTIMBERLINE INTERBODYFDAStart: 46-46-7461Uwvkmg, spine, lumbar, XLIFLATERAL STD 1 LEVEL CONSTRUCTFDAStart: 57-33-7880Mgyvat, spine, lumbar, XLIFSTRATOFUSE DBM 10CCFDAStart: 49-31-1683Xnhfqu, spine, lumbar, XLIFTIMBERLINE INTERBODYFDAStart: 57-13-3198Zdnghv, spine, lumbar, XLIFLATERAL STD 1 LEVEL CONSTRUCTFDAStart: 69-95-6544Lqijkt, spine, lumbar, XLIFSTRATOFUSE DBM 10CCFDAStart: 68-08-9171Gtuooa, spine, lumbar, XLIFTIMBERLINE INTERBODYFDA Start: 21-25-4613Sqmnfm, spine, lumbar, XLIFLATERAL STD 1 LEVEL CONSTRUCTFDA Start: 73-83-3702Rtgwnc, spine, lumbar, XLIFSTRATOFUSE DBM 10CCFDAStart: 88-50-4355Dcytyt, spine, lumbar, XLIFTIMBERLINE INTERBODYFDAStart: 07-25-2020 Fusion, spine, lumbar, XLIFLATERAL STD 1 LEVEL CONSTRUCTFDAStart: 07-25-2020 Fusion, spine, lumbar, XLIFSTRATOFUSE DBM 10CCFDAStart: 11-05-4252Olsdzd, spine, lumbar, XLIFTIMBERLINE INTERBODYFDAStart: 14-50-7181Xmukky, spine, lumbar, XLIF LATERAL STD 1 LEVEL CONSTRUCTFDAStart: 75-62-2812Fpwhqp, spine, lumbar, XLIF STRATOFUSE DBM 10CCFDAStart: 72-20-8047Fvgwrr, spine, lumbar, XLIFTIMBERLINE INTERBODYFDAStart: 65-00-4199Qytfzv, spine, lumbar, XLIFLATERAL STD 1 LEVEL CONSTRUCTFDAStart: 95-66-5783Zpvtlb, spine, lumbar, XLIFSTRATOFUSE DBM 10CCFDA Start: 52-18-6527Umslje, spine, lumbar, XLIFTIMBERLINE INTERBODYFDAStart: 00-04-5913Nmrseu, spine, lumbar, XLIFLATERAL STD 1 LEVEL CONSTRUCTFDAStart: 69-88-3017Pbaxqu, spine, lumbar, XLIFSTRATOFUSE DBM 10CCFDAStart: 07-25-2020 Fusion, spine, lumbar, XLIFTIMBERLINE INTERBODYFDAStart: 75-54-1725Ijlooq, spine, lumbar, XLIFLATERAL STD 1 LEVEL CONSTRUCTFDAStart: 67-26-5706Zjjvvw, spine, lumbar, XLIFSTRATOFUSE DBM 10CCFDAStart: 37-60-9511Gxzfvr, spine, lumbar, XLIFTIMBERLINE INTERBODYFDAStart: 33-96-5459Niqgxn, spine, lumbar, XLIFLATERAL STD 1 LEVEL CONSTRUCTFDAStart: 87-30-3979Dkjnjp, spine, lumbar, XLIFSTRATOFUSE DBM 10CCFDAStart: 93-96-0395Vowewd, spine, lumbar, XLIFTIMBERLINE INTERBODYFDA Start: 03-14-1870Bwjraq, spine, lumbar, XLIFLATERAL STD 1 LEVEL CONSTRUCTFDA Start: 70-36-8609Uyfdxl, spine, lumbar, XLIFSTRATOFUSE DBM 10CCFDAStart: 22-04-2390Jbcgao, spine, lumbar, XLIFTIMBERLINE INTERBODYFDAStart: 07-25-2020 Fusion, spine, lumbar, XLIFLATERAL STD 1 LEVEL CONSTRUCTFDAStart: 07-25-2020 Fusion, spine, lumbar, XLIFSTRATOFUSE DBM 10CCFDAStart: 67-65-9943Voftht, spine, lumbar, XLIFTIMBERLINE INTERBODYFDAStart: 70-83-4595Zjgokj, spine, lumbar, XLIF LATERAL STD 1 LEVEL CONSTRUCTFDAStart: 94-85-7953Cqkzui, spine, lumbar, XLIF STRATOFUSE DBM 10CCFDAStart: 99-84-0670Ktlhdt, spine, lumbar, XLIFTIMBERLINE INTERBODYFDAStart: 91-01-0227Utouhe, spine, lumbar, XLIFLATERAL STD 1 LEVEL CONSTRUCTFDAStart: 02-42-3242Xwujaf, spine, lumbar, XLIFSTRATOFUSE DBM 10CCFDA Start: 33-13-5706Xwskbv, spine, lumbar, XLIFTIMBERLINE INTERBODYFDAStart: 30-25-9295Ijdmot, spine, lumbar, XLIFLATERAL STD 1 LEVEL CONSTRUCTFDAStart: 60-25-1448Evagsu, spine, lumbar, XLIFSTRATOFUSE DBM 10CCFDAStart: 07-25-2020 Fusion, spine, lumbar, XLIFTIMBERLINE INTERBODYFDAStart: 25-69-2573Pvqdne, spine, lumbar, XLIFLATERAL STD 1 LEVEL CONSTRUCTFDAStart: 21-19-6654Xwbdgc, spine, lumbar, XLIFSTRATOFUSE DBM 10CCFDAStart: 16-59-6459Dtvpoc, spine, lumbar, XLIFTIMBERLINE INTERBODYFDAStart: 04-02-1784Erblva, spine, lumbar, XLIFLATERAL STD 1 LEVEL CONSTRUCTFDAStart: 96-67-4433Dohpew, spine, lumbar, XLIFSTRATOFUSE DBM 10CCFDAStart: 48-75-0935Bgrims, spine, lumbar, XLIFTIMBERLINE INTERBODYFDA Start: 49-86-7375Dmowdc, spine, lumbar, XLIFLATERAL STD 1 LEVEL CONSTRUCTFDA Start: 46-44-2380Mnhbxh, spine, lumbar, XLIFSTRATOFUSE DBM 10CCFDAStart: 04-06-4777Lhzgfh, spine, lumbar, XLIFTIMBERLINE INTERBODYFDAStart: 07-25-2020 Fusion, spine, lumbar, XLIFLATERAL STD 1 LEVEL CONSTRUCTFDAStart: 07-25-2020 Fusion, spine, lumbar, XLIFSTRATOFUSE DBM 10CCFDAStart: 12-79-4516Slkucs, spine, lumbar, XLIFTIMBERLINE INTERBODYFDAStart: 98-05-6466Oknjxc, spine, lumbar, XLIF LATERAL STD 1 LEVEL CONSTRUCTFDAStart: 81-54-7444Fsusig, spine, lumbar, XLIF STRATOFUSE DBM 10CCFDAStart: 04-01-0291Hrnvke, spine, lumbar, XLIFTIMBERLINE INTERBODYFDAStart: 70-63-8860Qaavkd, spine, lumbar, XLIFLATERAL STD 1 LEVEL CONSTRUCTFDAStart: 60-93-8740Xtykqe, spine, lumbar, XLIFSTRATOFUSE DBM 10CCFDA Start: 48-31-7181Jvtspt, spine, lumbar, XLIFTIMBERLINE INTERBODYFDAStart: 64-30-5643Tvolou, spine, lumbar, XLIFLATERAL STD 1 LEVEL CONSTRUCTFDAStart: 69-82-9566Mekrdy, spine, lumbar, XLIFSTRATOFUSE DBM 10CCFDAStart: 07-25-2020 Fusion, spine, lumbar, XLIFTIMBERLINE INTERBODYFDAStart: 94-88-3434Gxupfh, spine, lumbar, XLIFLATERAL STD 1 LEVEL CONSTRUCTFDAStart: 67-41-8946Izlkmh, spine, lumbar, XLIFSTRATOFUSE DBM 10CCFDAStart: 17-54-0678Ychcvg, spine, lumbar, XLIFTIMBERLINE INTERBODYFDAStart: 71-67-5849Ieswud, spine, lumbar, XLIFLATERAL STD 1 LEVEL CONSTRUCTFDAStart: 71-84-4819Zylclp, spine, lumbar, XLIFSTRATOFUSE DBM 10CCFDAStart: 06-96-8187Voezod, spine, lumbar, XLIFTIMBERLINE INTERBODYFDA Start: 51-03-7550Tniplf, spine, lumbar, XLIFLATERAL STD 1 LEVEL CONSTRUCTFDA Start: 27-65-6920Xigmdl, spine, lumbar, XLIFSTRATOFUSE DBM 10CCFDAStart: 63-40-6533Sawgsd, spine, lumbar, XLIFTIMBERLINE INTERBODYFDAStart: 07-25-2020 Fusion, spine, lumbar, XLIFLATERAL STD 1 LEVEL CONSTRUCTFDAStart: 07-25-2020 Fusion, spine, lumbar, XLIFSTRATOFUSE DBM 10CCFDAStart: 83-23-4007Ugcrza, spine, lumbar, XLIFTIMBERLINE INTERBODYFDAStart: 67-88-6684Dcevzu, spine, lumbar, XLIF LATERAL STD 1 LEVEL CONSTRUCTFDAStart: 81-52-8334Jwhsav, spine, lumbar, XLIF STRATOFUSE DBM 10CCFDAStart: 66-61-6686Omogoo, spine, lumbar, XLIFTIMBERLINE INTERBODYFDAStart: 00-08-3074Lounen, spine, lumbar, XLIFLATERAL STD 1 LEVEL CONSTRUCTFDAStart: 92-58-5098Ddpkac, spine, lumbar, XLIFSTRATOFUSE DBM 10CCFDA Start: 62-38-4184Cdkoic, spine, lumbar, XLIFTIMBERLINE INTERBODYFDAStart: 51-68-4933Grsncp, spine, lumbar, XLIFLATERAL STD 1 LEVEL CONSTRUCTFDAStart: 36-60-0651Gfnzwa, spine, lumbar, XLIFSTRATOFUSE DBM 10CCFDAStart: 07-25-2020 Fusion, spine, lumbar, XLIFTIMBERLINE INTERBODYFDAStart: 97-08-0373Hlcdwp, spine, lumbar, XLIFLATERAL STD 1 LEVEL CONSTRUCTFDAStart: 95-90-0017Stvhsh, spine, lumbar, XLIFSTRATOFUSE DBM 10CCFDAStart: 59-26-2710Guhptp, spine, lumbar, XLIFTIMBERLINE INTERBODYFDAStart: 87-71-9916Tbcmjy, spine, lumbar, XLIFLATERAL STD 1 LEVEL CONSTRUCTFDAStart: 99-63-7780Glllpp, spine, lumbar, XLIFSTRATOFUSE DBM 10CCFDAStart: 58-47-7218Jrohlm, spine, lumbar, XLIFTIMBERLINE INTERBODYFDA Start: 58-21-2634Aqeddw, spine, lumbar, XLIFLATERAL STD 1 LEVEL CONSTRUCTFDA Start: 97-44-3704Rhsmhn, spine, lumbar, XLIFSTRATOFUSE DBM 10CCFDAStart: 52-31-2667Empamk, spine, lumbar, XLIFTIMBERLINE INTERBODYFDAStart: 07-25-2020 Fusion, spine, lumbar, XLIFLATERAL STD 1 LEVEL CONSTRUCTFDAStart: 07-25-2020 Fusion, spine, lumbar, XLIFSTRATOFUSE DBM 10CCFDAStart: 12-54-7664Zbmqft, spine, lumbar, XLIFTIMBERLINE INTERBODYFDAStart: 28-02-4075Dufxmg, spine, lumbar, XLIF LATERAL STD 1 LEVEL CONSTRUCTFDAStart: 51-36-4529Thklwq, spine, lumbar, XLIF STRATOFUSE DBM 10CCFDAStart: 61-72-6391Fdywac, spine, lumbar, XLIFTIMBERLINE INTERBODYFDAStart: 52-15-6827Luwguk, spine, lumbar, XLIFLATERAL STD 1 LEVEL CONSTRUCTFDAStart: 58-49-8735Itpbux, spine, lumbar, XLIFSTRATOFUSE DBM 10CCFDA Start: 99-28-3493Bbbipz, spine, lumbar, XLIFTIMBERLINE INTERBODYFDAStart: 36-71-6145Vkqibh, spine, lumbar, XLIFLATERAL STD 1 LEVEL CONSTRUCTFDAStart: 17-25-8295Ajmjoo, spine, lumbar, XLIFSTRATOFUSE DBM 10CCFDAStart: 07-25-2020 Fusion, spine, lumbar, XLIFTIMBERLINE INTERBODYFDAStart: 64-91-5478Qufuhv, spine, lumbar, XLIFLATERAL STD 1 LEVEL CONSTRUCTFDAStart: 65-41-0934Ycthaa, spine, lumbar, XLIFSTRATOFUSE DBM 10CCFDAStart: 38-60-6847Ngszuy, spine, lumbar, XLIFTIMBERLINE INTERBODYFDAStart: 34-66-2663Krwdfe, spine, lumbar, XLIFLATERAL STD 1 LEVEL CONSTRUCTFDAStart: 58-70-3630Lqwtag, spine, lumbar, XLIFSTRATOFUSE DBM 10CCFDAStart: 46-33-9308Emldet, spine, lumbar, XLIFTIMBERLINE INTERBODYFDA Start: 04-54-3769Msistt, spine, lumbar, XLIFLATERAL STD 1 LEVEL CONSTRUCTFDA Start: 81-49-1950Iwpeij, spine, lumbar, XLIFSTRATOFUSE DBM 10CCFDAStart: 53-61-8113Vxgofq, spine, lumbar, XLIFTIMBERLINE INTERBODYFDAStart: 07-25-2020 Fusion, spine, lumbar, XLIFLATERAL STD 1 LEVEL CONSTRUCTFDAStart: 07-25-2020 Fusion, spine, lumbar, XLIFSTRATOFUSE DBM 10CCFDAStart: 84-93-7333Qezayg, spine, lumbar, XLIFTIMBERLINE INTERBODYFDAStart: 17-74-7056Jncfpt, spine, lumbar, XLIF LATERAL STD 1 LEVEL CONSTRUCTFDAStart: 04-97-9500Osanhg, spine, lumbar, XLIF STRATOFUSE DBM 10CCFDAStart: 49-65-5975Lqhhwd, spine, lumbar, XLIFTIMBERLINE INTERBODYFDAStart: 88-84-0790Oaqdxr, spine, lumbar, XLIFLATERAL STD 1 LEVEL CONSTRUCTFDAStart: 60-71-3070Vdwqlp, spine, lumbar, XLIFSTRATOFUSE DBM 10CCFDA Start: 24-99-5213Rtmnlc, spine, lumbar, XLIFTIMBERLINE INTERBODYFDAStart: 70-09-922516711492, 73283050Jtzfb: 08-11-2013 End: 98-62-7950Vjwh-eluting coronary artery stent, hdy-ogflmibzxawnv-ncomcwx-coated()[id number] FDAStart: 72-93-4911Oooedez artery closure plug/patch, synthetic polymer()[id number] FDAStart: 06-30-1976Oqd Needle, Diabetic (Ulticare Pen Needle) 31 gauge x 3/16 needleStart: 28-60-0889Hxc Needle, Diabetic (Ulticare Pen Needle) 31 gauge x 3/16 needleStart: 05-13-2024 End: 16-21-2135Hmb Needle, Diabetic (Ulticare Pen Needle) 31 gauge x 3/16 needleStart: 85-43-5323Gip Needle, Diabetic (Ulticare Pen Needle) 31 gauge x 3/16 needleStart: 05-13-2024 End: 86-12-1831Eob Needle, Diabetic (Ulticare Pen Needle) 31 gauge x 3/16 needleStart: 65-94-8390Guq Needle, Diabetic (Ulticare Pen Needle) 31 gauge x 3/16 needleStart: 05-13-2024 End: 04-02-3787Wai Needle, Diabetic (Ulticare Pen Needle) 31 gauge x 3/16 needleStart: 27-40-0818Yhk Needle, Diabetic (Ulticare Pen Needle) 31 gauge x 3/16 needleStart: 05-13-2024 End: 47-74-2293Ake Needle, Diabetic (Ulticare Pen Needle) 31 gauge x 3/16 needleStart: 44-04-0341Wic Needle, Diabetic (Ulticare Pen Needle) 31 gauge x 3/16 needleStart: 05-13-2024 End: 51-74-3980Fjt Needle, Diabetic (Ulticare Pen Needle) 31 gauge x 3/16 needleStart: 45-03-0733Vsg Needle, Diabetic (Ulticare Pen Needle) 31 gauge x 3/16 needleStart: 05-13-2024 End: 80-52-4302Bvx Needle, Diabetic (Ulticare Pen Needle) 31 gauge x 3/16 needleStart: 97-01-6928Gzu Needle, Diabetic (Ulticare Pen Needle) 31 gauge x 3/16 needleStart: 05-13-2024 End: 77-36-9516Vvu Needle, Diabetic (Ulticare Pen Needle) 31 gauge x 3/16 needleStart: 05-13-2024 End: 81-23-1278Xoq Needle, Diabetic (Ulticare Pen Needle) 31 gauge x 3/16 needleStart: 30-36-6828Ogm Needle, Diabetic 31 gauge x 5/16 needleStart: 97-23-6771Xfk Needle, Diabetic (Ulticare Pen Needle) 31 gauge x 3/16 needle Start: 05-13-2024 End: 75-07-4253Bbs Needle, Diabetic (Ulticare Pen Needle) 31 gauge x 3/16 needleStart: 05-13-2024 End: 31-44-6337Hpv Needle, Diabetic 31 gauge x 5/16 needleStart: 09-12-2024 End: 77-74-7768Eem Needle, Diabetic (Ulticare Pen Needle) 31 gauge x 3/16 needleStart: 58-05-1917Muw Needle, Diabetic 31 gauge x 5/16 needleStart: 37-91-4106Sni Needle, Diabetic (Ulticare Pen Needle) 31 gauge x 3/16 needle Start: 05-13-2024 End: 87-89-0399Ivo Needle, Diabetic (Ulticare Pen Needle) 31 gauge x 3/16 needleStart: 05-13-2024 End: 38-54-2722Rks Needle, Diabetic 31 gauge x 5/16 needleStart: 09-12-2024 End: 77-59-0303Wzj Needle, Diabetic (Ulticare Pen Needle) 31 gauge x 3/16 needleStart: 06-01-5842Ljl Needle, Diabetic 31 gauge x 5/16 needleStart: 72-72-1447Xha Needle, Diabetic (Ulticare Pen Needle) 31 gauge x 3/16 needle Start: 05-13-2024 End: 22-16-2881Izb Needle, Diabetic (Ulticare Pen Needle) 31 gauge x 3/16 needleStart: 05-13-2024 End: 52-62-9485Wtr Needle, Diabetic 31 gauge x 5/16 needleStart: 09-12-2024 End: 67-82-8293Vhu Needle, Diabetic (Ulticare Pen Needle) 31 gauge x 3/16 needleStart: 65-59-4926Sbs Needle, Diabetic 31 gauge x 5/16 needleStart: 64-06-6668Esr Needle, Diabetic (Ulticare Pen Needle) 31 gauge x 3/16 needle Start: 05-13-2024 End: 99-00-8978Ibm Needle, Diabetic (Ulticare Pen Needle) 31 gauge x 3/16 needleStart: 05-13-2024 End: 98-29-3309Eqi Needle, Diabetic 31 gauge x 5/16 needleStart: 09-12-2024 End: 86-39-3549Hty Needle, Diabetic (Ulticare Pen Needle) 31 gauge x 3/16 needleStart: 37-64-9408Wnp Needle, Diabetic 31 gauge x 5/16 needleStart: 07-05-7034Bwg Needle, Diabetic (Ulticare Pen Needle) 31 gauge x 3/16 needle Start: 05-13-2024 End: 41-66-6394Oql Needle, Diabetic (Ulticare Pen Needle) 31 gauge x 3/16 needleStart: 05-13-2024 End: 54-82-3936Lre Needle, Diabetic 31 gauge x 5/16 needleStart: 09-12-2024 End: 96-82-9342Pni Needle, Diabetic (Ulticare Pen Needle) 31 gauge x 3/16 needleStart: 66-61-9889Xsa Needle, Diabetic 31 gauge x 5/16 needleStart: 88-40-1026Qvu Needle, Diabetic (Ulticare Pen Needle) 31 gauge x 3/16 needle Start: 05-13-2024 End: 00-80-4073Rxw Needle, Diabetic (Ulticare Pen Needle) 31 gauge x 3/16 needleStart: 05-13-2024 End: 27-03-8827Hyz Needle, Diabetic 31 gauge x 5/16 needleStart: 09-12-2024 End: 68-36-5959Tkc Needle, Diabetic (Ulticare Pen Needle) 31 gauge x 3/16 needleStart: 92-41-6281Rjy Needle, Diabetic 31 gauge x 5/16 needleStart: 64-56-5225Rex Needle, Diabetic (Ulticare Pen Needle) 31 gauge x 3/16 needle Start: 05-13-2024 End: 30-79-6190Tsx Needle, Diabetic (Ulticare Pen Needle) 31 gauge x 3/16 needleStart: 05-13-2024 End: 40-87-0183Qak Needle, Diabetic 31 gauge x 5/16 needleStart: 09-12-2024 End: 38-40-1601Srz Needle, Diabetic (Ulticare Pen Needle) 31 gauge x 3/16 needleStart: 97-44-8278Ywt Needle, Diabetic 31 gauge x 5/16 needleStart: 02-22-8426Puu Needle, Diabetic (Ulticare Pen Needle) 31 gauge x 3/16 needle Start: 05-13-2024 End: 50-44-9900Tcq Needle, Diabetic (Ulticare Pen Needle) 31 gauge x 3/16 needleStart: 05-13-2024 End: 94-06-9148Dgi Needle, Diabetic 31 gauge x 5/16 needleStart: 09-12-2024 End: 48-21-0036Ixk Needle, Diabetic (Ulticare Pen Needle) 31 gauge x 3/16 needleStart: 64-75-0954Fsj Needle, Diabetic 31 gauge x 5/16 needleStart: 17-55-5920Kcf Needle, Diabetic (Ulticare Pen Needle) 31 gauge x 3/16 needle Start: 05-13-2024 End: 16-30-5197Xow Needle, Diabetic (Ulticare Pen Needle) 31 gauge x 3/16 needleStart: 05-13-2024 End: 61-30-6610Tna Needle, Diabetic 31 gauge x 5/16 needleStart: 09-12-2024 End: 20-18-1590Tid Needle, Diabetic (Ulticare Pen Needle) 31 gauge x 3/16 needleStart: 33-11-0760Jvz Needle, Diabetic 31 gauge x 5/16 needleStart: 85-32-5383Red Needle, Diabetic (Ulticare Pen Needle) 31 gauge x 3/16 needle Start: 05-13-2024 End: 12-31-1257Bcg Needle, Diabetic (Ulticare Pen Needle) 31 gauge x 3/16 needleStart: 05-13-2024 End: 54-37-3380Cmd Needle, Diabetic 31 gauge x 5/16 needleStart: 09-12-2024 End: 61-70-4566Yly Needle, Diabetic (Ulticare Pen Needle) 31 gauge x 3/16 needleStart: 77-57-9677Fyj Needle, Diabetic 31 gauge x 5/16 needleStart: 76-68-0220Rtt Needle, Diabetic (Ulticare Pen Needle) 31 gauge x 3/16 needle Start: 05-13-2024 End: 38-82-7964Uvf Needle, Diabetic (Ulticare Pen Needle) 31 gauge x 3/16 needleStart: 05-13-2024 End: 84-10-1625Oyz Needle, Diabetic 31 gauge x 5/16 needleStart: 09-12-2024 End: 41-20-2740Eba Needle, Diabetic (Ulticare Pen Needle) 31 gauge x 3/16 needleStart: 15-10-5541Usg Needle, Diabetic 31 gauge x 5/16 needleStart: 00-69-7751Eau Needle, Diabetic (Ulticare Pen Needle) 31 gauge x 3/16 needle Start: 05-13-2024 End: 94-89-6320Xux Needle, Diabetic (Ulticare Pen Needle) 31 gauge x 3/16 needleStart: 05-13-2024 End: 63-30-8413Tlj Needle, Diabetic 31 gauge x 5/16 needleStart: 09-12-2024 End: 23-27-9415Ojm Needle, Diabetic (Ulticare Pen Needle) 31 gauge x 3/16 needleStart: 54-20-5680Uaw Needle, Diabetic 31 gauge x 5/16 needleStart: 71-29-7606Kie Needle, Diabetic (Ulticare Pen Needle) 31 gauge x 3/16 needle Start: 05-13-2024 End: 75-30-7750Jcs Needle, Diabetic (Ulticare Pen Needle) 31 gauge x 3/16 needleStart: 05-13-2024 End: 05-13-1056Nil Needle, Diabetic 31 gauge x 5/16 needleStart: 09-12-2024 End: 54-13-2623Pqe Needle, Diabetic (Ulticare Pen Needle) 31 gauge x 3/16 needleStart: 88-53-5972Khv Needle, Diabetic 31 gauge x 5/16 needleStart: 10-23-4666Knv Needle, Diabetic (Ulticare Pen Needle) 31 gauge x 3/16 needle Start: 05-13-2024 End: 01-41-4780Lgp Needle, Diabetic (Ulticare Pen Needle) 31 gauge x 3/16 needleStart: 05-13-2024 End: 89-47-0656Mrx Needle, Diabetic 31 gauge x 5/16 needleStart: 09-12-2024 End: 87-99-5476Mcq Needle, Diabetic (Ulticare Pen Needle) 31 gauge x 3/16 needleStart: 81-63-7419Bur Needle, Diabetic 31 gauge x 5/16 needleStart: 24-55-7831Xgy Needle, Diabetic (Ulticare Pen Needle) 31 gauge x 3/16 needle Start: 05-13-2024 End: 34-40-8705Obc Needle, Diabetic (Ulticare Pen Needle) 31 gauge x 3/16 needleStart: 05-13-2024 End: 77-89-8791Nhj Needle, Diabetic 31 gauge x 5/16 needleStart: 09-12-2024 End: 53-12-0413Ore Needle, Diabetic (Ulticare Pen Needle) 31 gauge x 3/16 needleStart: 43-97-4462Wwu Needle, Diabetic 31 gauge x 5/16 needleStart: 70-20-5522Mnn Needle, Diabetic (Ulticare Pen Needle) 31 gauge x 3/16 needle Start: 05-13-2024 End: 20-64-0447Xzl Needle, Diabetic (Ulticare Pen Needle) 31 gauge x 3/16 needleStart: 05-13-2024 End: 99-51-5461Kad Needle, Diabetic 31 gauge x 5/16 needleStart: 09-12-2024 End: 11-33-0447Cvl Needle, Diabetic (Ulticare Pen Needle) 31 gauge x 3/16 needleStart: 42-83-2310Qfc Needle, Diabetic 31 gauge x 5/16 needleStart: 89-21-4629Cxz Needle, Diabetic (Ulticare Pen Needle) 31 gauge x 3/16 needle Start: 05-13-2024 End: 64-26-2311Wsj Needle, Diabetic (Ulticare Pen Needle) 31 gauge x 3/16 needleStart: 05-13-2024 End: 42-93-1726Bqv Needle, Diabetic 31 gauge x 5/16 needleStart: 09-12-2024 End: 51-00-9205Axv Needle, Diabetic (Ulticare Pen Needle) 31 gauge x 3/16 needleStart: 76-60-0082Vqd Needle, Diabetic 31 gauge x 5/16 needleStart: 79-36-2979Sfs Needle, Diabetic (Ulticare Pen Needle) 31 gauge x 3/16 needle Start: 05-13-2024 End: 59-76-6433Bdc Needle, Diabetic (Ulticare Pen Needle) 31 gauge x 3/16 needleStart: 05-13-2024 End: 16-69-3270Cjm Needle, Diabetic 31 gauge x 5/16 needleStart: 09-12-2024 End: 09-12-2024 Goals DatePatient GoalDesired Activity/State Functional Status FhiwRnzzayqcblFxzlqeHmjvofbe79-20-4743Grsrqig Health Questionnaire 2 item (PHQ- 2) [Reported][facility] Clinical Notes 12-31-2014 to 07-27-2025 Note Date & GktlPmgmKcgsepaw51-52-9935 History of Present illness Narrative* Shaina Munroe, [...] 2 diabetes mellitus with Charcot's joint arthropathy ([facility]) Long-term insulin use ([facility]) Spondylolisthesis at L3-L4 level S/P laparoscopic cholecystectomy Other hammer toe(s) (acquired), left foot Chronic foot ulcer ([facility]) Carpal tunnel syndrome of right wrist Class 2 severe obesity with serious comorbidity and body mass index (BMI) of 35.0 to 35.9 in adult ([facility]) Type 2 diabetes mellitus with both eyes affected by mild nonproliferative retinopathy without macular edema, with long-term current use of insulin ([facility]) Social History Tobacco Use Smoking [...] daily 50 units) (100 UNIT/ML SOPN) Labs [facility] [place]HEMOGLOBIN.TOTAL:MFR:PT:BLD:QN: 8.1 Outpatient prescription Medication marked [...] Charcot's joint arthropathy (HCC) Long-term insulin use ([facility]) Class 2 severe obesity with serious comorbidity and body mass index (BMI) of 35.0 to 35.9 in adult ([facility]) Type 2 diabetes mellitus with both eyes affected by mild nonproliferative retinopathy without macular edema, with long-term current use of insulin ([facility]) Follow up in about 3 [...] PO) Take by mouth CONTINUOUS BLOOD GLUC TRAINING PROGRAM MANAGER (DEXCOM G7 TRAINING PROGRAM MANAGER) DEVICE USE DIRECTED CONTINUOUS BLOOD GLUC SENSOR [...] with the patient today. documented in this encounterRipley County Memorial HospitalWzzuqnndcm87-68-7556 Evaluation note* Diagnosis Onset Date Resolution Status Admit Date Chronic pain acuteJuly 2024 8:03amSacroiliitis, not elsewhere classifiedacuteJuly 2024 8:03amTrochanteric bursitisacuteJuly 2024 8:03am [facility] Work Phone: 1(126) 627-291607-02-2025 Evaluation note* Diagnosis Onset Date Resolution Status Admit Date Chronic pain acuteJuly 2024 8:03amSacroiliitis, not elsewhere classifiedacuteJuly 2024 8:03amTrochanteric bursitisacuteJuly 2024 8:03amChronic painacuteJuly 2024 9:03amSacroiliitis, not elsewhere classifiedacuteJuly 2024 9:03amTrochanteric bursitisacuteJuly 2024 9:03am [facility] Work Phone: 1(175) 535-991307-02-2025 Evaluation note* Diagnosis Onset Date Resolution Status Admit Date Chronic pain acuteJuly 2024 8:03amSacroiliitis, not elsewhere classifiedacuteJuly 2024 8:03amTrochanteric bursitisacuteJuly 2024 8:03amChronic painacuteJuly 2024 9:03amSacroiliitis, not elsewhere classifiedacuteJuly 2024 9:03amTrochanteric bursitisacuteJuly 2024 9:03amDiabetic foot ulcer associated with type 2 diabetes mellitus, with fat layeacuteAugust 2024 7:36amMRSA bacteremiaacuteAugust 2024 7:36amOral thrushacuteAugust 2024 7:36am [facility] Work Phone: 1(157) 910-392306-16-2025 History of Present illness Narrative* Shaina Munroe [...] (BMI) of 35.0 to 35.9 in adult ([facility]) Type 2 diabetes mellitus with both eyes affected by mild nonproliferative retinopathy without macular edema, with long-term current use of insulin ([facility]) Social History Tobacco Use Smoking [...] units dinner (500 UNIT/ML SOPN) -Discontinued Labs 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) - Primary Long-term insulin use ([facility]) Class 2 severe obesity with serious comorbidity and body mass index (BMI) of 35.0 to 35.9 in adult ([facility]) Type 2 diabetes mellitus with both eyes affected by mild nonproliferative retinopathy without macular edema, with long-term current use of insulin ([facility]) Follow up in about 3 [...] PO) Take by mouth CONTINUOUS BLOOD GLUC TRAINING PROGRAM MANAGER (DEXCOM G7 TRAINING PROGRAM MANAGER) DEVICE USE DIRECTED CONTINUOUS BLOOD GLUC SENSOR [...] PENTIPS) 31G X 8 MM MISC Drug Adams Unifine Pentips 31G X 8 MMmisc Injection subcutaneous tid USE DIRECTED Discontinued Medications No medications on file I have reviewed and reconciled the history and medication list with the patient today. documented in this encounterRipley County Memorial [id number] Evaluation note* Diagnosis Onset Date Resolution Status [...] back painacuteJuly 2024 8:03amTrochanteric bursitisacuteJuly 2024 8:03am [facility] Work Phone: 1(846) 981-156402-19-2025 Evaluation note* Diagnosis Onset Date Resolution Status [...] 06, 2025 7:41amSpondylolisthesis, lumbar regionacuteApril 2024 7:41am [facility] [place] Work Phone: 1(273) 664-154302-10-2025 Evaluation note* Author France Carlson [facility] 2024 11:30amThe above note written by ITZ Teresa acting as human recorder, note dictated by Dr. Charan Casey. [facility] Work Phone: 1([phone]) 392-845202-10-2025 Telephone encounter Note* Telephone Encounter - Kati Clint - 01/09/2025 1:09 PM EST Pt's spouse called to ask if Dr. Merritt has any dexcom G7 sensors. She has been without for over aweek. Her prescription has been delayed due to insurance issues, She is having an injection tomorrow and is worried about her bg readings. [facility] [id number] Miscellaneous Notes* Telephone Encounter - Kati Jaramillo - 01/09/2025 1:09 PM EST Pt's spouse called to ask if Dr. Merritt has any dexcom G7 sensors. She has been without for over aweek. Her prescription has been delayed due to insurance issues, She is having an injection tomorrow and is worried about her bg readings. documented in this encounterRipley County Memorial HospitalOkyrthbnry89-69-3347 Evaluation note* Author France Carlson [facility] 2024 10:30amThe above note written by ITZ Teresa acting as human recorder, note dictated by Dr. Charan Casey. [facility] Work Phone: 1(531) 713-712111-20-2024 Evaluation note* Diagnosis Onset Date Resolution Status Admit Date Chronic pain acuteNovember 2023 8:01amOsteoarthritis of spine with radiculopathy, lumbar regionacuteNov2023 8:01amArthrosis of right acromioclavicular jointacuteNovember 2023 8:44amRotator cuff syndrome of right shoulder acuteNovember 2023 8:44amCoughacuteJanuary 2024 10:00amChronic pain acuteJanuary 2024 9:01amOsteoarthritis of spine with radiculopathy, lumbar regionacuteJanuary 2024 9:01am [facility] Work Phone: 1(856) 642-490111-20-2024 Evaluation note* Diagnosis Onset Date Resolution Status [...] of right shoulderacute December 29, 2024 7:33am [facility] Work Phone: 1(211) 110-381111-19-2024 History of Present illness Narrative* Shaina Munroe [...] Charcot's joint arthropathy (CMS/HCC) Long-term insulin use ([facility]) Class 2 severe obesity with serious comorbidity and body mass index (BMI) of 39.0 to 39.9 in adult ([facility]) Type 2 diabetes mellitus with both eyes affected by mild nonproliferative retinopathy without macular edema, with long-term current use of insulin ([facility]) Follow up in about 4 [...] at the same time. CONTINUOUS BLOOD GLUC TRAINING PROGRAM MANAGER (DEXCOM G7 TRAINING PROGRAM MANAGER) DEVICE USE DIRECTED CONTINUOUS BLOOD GLUC SENSOR [...] with the patient today. documented in this encounterRipley County Memorial [id number] [facility] noteOhio [facility] Evaluation note* Diagnosis Onset Date Resolution Status Admit Date Chronic pain acuteOctober 2023 8:03amOsteoarthritis of spine with radiculopathy, lumbar regionacuteOctober 2023 8:03amSacroiliitis, not elsewhere classifiedacute September 12, 2024 8:03amChronic painacuteNovember 2023 8:01am Osteoarthritis of spine with radiculopathy, lumbar regionacuteNovember 2023 8:01am [facility] Work Phone: [phone] 430-935610-14-2024 Evaluation note* Diagnosis Onset Date Resolution Status Admit Date Chronic pain acuteOctober 2023 8:03amOsteoarthritis of spine with radiculopathy, lumbar regionacuteOctober 2023 8:03amSacroiliitis, not elsewhere classifiedacute September 12, 2024 8:03amChronic painacuteNovember 2023 8:01am Osteoarthritis of spine with radiculopathy, lumbar regionacuteNovember 2023 8:01amArthrosis of right acromioclavicular jointacuteNov2023 8:44amRotator cuff syndrome of right shoulderacuteNov2023 8:44am [facility] [place] Work Phone: 1(610) 593-819710-14-2024 Evaluation note* Diagnosis Onset Date Resolution Status Admit Date Chronic pain acuteOctober 2023 8:03amOsteoarthritis of spine with radiculopathy, lumbar regionacuteOctober 2023 8:03amSacroiliitis, not elsewhere classifiedacute September 12, 2024 8:03amChronic painacuteNovember 2023 8:01am Osteoarthritis of spine with radiculopathy, lumbar regionacuteNovember 2023 8:01amArthrosis of right acromioclavicular jointacuteNovember 2023 8:44amRotator cuff syndrome of right shoulderacuteNovember 2023 8:44am CoughacuteJanuary 2024 10:00am [facility] Work Phone: 1([phone]) 662-287809-26-2024 History of Present illness Narrative* Rosalinda Torres [...] remains way above target and due to Ofksicv-Jcjwv-Ycuby joints she has limited exercise capacity. Her [...] machine patient has been compliant with it. 7-Gahfygh-Ipvnp-Tooth joint in the ankles status post recent [...] , Rfl: ergocalciferol (Vitamin D-2) 1.25 MG (25402 UT) capsule, Take 1 capsule (50,000 Units) [...] type, unspecified whether angina present, unspecified whether king salmon or transplanted heart Follow Up In Cardiology [...] exam, discussion and plan. documented in this [facility] Work Phone: 1(165) 242-524909-26-2024 Instructions* Patient Instructions* Enedina Isidro LPN - [...] Provided instructions on exercise. 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 Her labs have been followed closely. [...] machine patient has been compliant with it. 2-Tsgiajt-Gdead-Tooth joint in the ankles status post recent [...] , Rfl: ergocalciferol (Vitamin D-2) 1.25 MG (41425 UT) capsule, Take 1 capsule (50,000 Units) [...] type, unspecified whether angina present, unspecified whether king salmon or transplanted heart Follow Up In Cardiology 2. Essential hypertension 3. 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 4. Hyperlipidemia, unspecified hyperlipidemia type 5. Obstructive sleep apnea syndrome 6. Class 2 obesity with body mass index (BMI) of 37.0 to 37.9 in adult, unspecified obesity type, unspecified whether serious comorbidity present 7. Insulin-requiring or dependent type II diabetes mellitus ([facility]) Scribe Attestation By signing my [...] exam, discussion and plan. documented in this [facility] Work Phone: 1(927) 447-706903-25-2024 Instructions* Patient Instructions* Enedina Isidro LPN - [...] 6 m Same medications [facility] Work Phone: 1(620) 410-731501-31-2024 Evaluation note* Encounter Date Diagnosis Assessment Notes [...] to call if she does not improve. [facility] Other 12-05-2023 Evaluation note* Encounter Date Diagnosis Assessment Notes Treatment Notes Treatment Clinical Notes Oct, Hyperlipidemia (ICD-10 - E78.5) [facility] Other 11-29-2023 Evaluation note* Encounter Date Diagnosis Assessment Notes Treatment Notes Treatment Clinical Notes Sep, Trochanteric bursitis of left hi p (ICD-10 - M70.62) [facility] Other 11-29-2023 Evaluation note* Encounter Date Diagnosis [...] Sep,OtherAbove note written by Willi Leiva MA, Housetrailer Servicer. Edited and approved by Dr. Blas Ortiz MD. [facility] Other 11-22-2023 Evaluation note* Encounter Date Diagnosis [...] of symptoms occur by end of treatment. [facility] Other 11-20-2023 Evaluation note* Encounter Date Diagnosis Assessment Notes Treatment Notes Treatment Clinical Notes Sep, Cervical spondylosis without mye lopathy (ICD-10 - M47.812) [facility] Other 11-08-2023 Evaluation note* Encounter Date Diagnosis Assessment Notes Treatment Notes Treatment Clinical Notes Sep, Hypertensive chronic kidney disease with stage 1 through stage 4 chronic kidney disease, or unspecified chronic kidney disease (ICD-10 - I12.9) [facility] Other 11-07-2023 History and physical note Author Yasmeen Treadwell [facility] October 06, 2023 8:31amNote Date/TimeNov2022 8:31[place] [id number] Gastroenterology H&P Signed Patient: Rita Cobb MR#: [id number] 365 : 1960 Acct:[id number] Age/Sex: 62 / F Adm Date: 3 Loc: Room: Type: [facility] Attending Dr: Yasmeen Treadwell MD Copies to: [...] 10/06/23 0830 Signed By: <Electronically signed by Yasmeen Treadwell MD> 10/06/23 0831 [facility] Work Phone: 1([phone]) 106-251711-07-2023 Procedure noteOhio [facility]10-25-2023 Evaluation note* Encounter Date Diagnosis [...] Aug,OtherAbove note written by Corina Sánchez LPN, Housetrailer Servicer. Edited and approved by Dr. Blas Ortiz MD. [employer] Other 10-17-2023 Evaluation note* Encounter Date Diagnosis [...] risk of worsening renal function and hematuria. [facility] Other 09-19-2023 Evaluation note* Encounter Date Diagnosis Assessment Notes Treatment Notes Treatment Clinical Notes Jul, Hyperuricemia (ICD-10 - E79.0) Jul,iabetic neuropathy (ICD-10 - E11.40) [facility] Other 09-18-2023 Evaluation note* Encounter Date Diagnosis [...] Jul,OtherAbove note written by Corina Sánchez LPN, Housetrailer Servicer. Edited and approved by Dr. Blas Ortiz MD. [facility] Other 09-12-2023 Evaluation note* Encounter Date Diagnosis [...] Jul,Low back pain, unspecified (ICD-10 - M54.50) [facility] Other 09-06-2023 Evaluation note* Encounter Date Diagnosis [...] Jul,Screening for colon cancer (ICD-10 - Z12.11) [facility] Other 08-03-2023 Evaluation note* Encounter Date Diagnosis Assessment Notes Treatment Notes Treatment Clinical Notes Jun, Type 2 diabetes wicho itus with diabetic neuropathy, unspecified (ICD-10 - E11.40) [facility] Other 06-20-2023 Evaluation note* Encounter Date Diagnosis [...] M47.812) Refill provided of the above medication. [facility] Other 06-06-2023 Evaluation note* Encounter Date Diagnosis Assessment Notes Treatment Notes Treatment Clinical Notes Apr, Type 2 diabetes wicho itus with diabetic neuropathy, unspecified (ICD-10 - E11.40) [facility] Other 05-15-2023 NotePROCEDURE: XR FOOT LT 2V HISTORY: Pain COMPARISON: XR foot left 04/07/2023 FINDINGS: BONES:Several intraoperative spot fluoroscopic images demonstrate removal of 3 separate lag screws fixating the second and fourth metatarsophalangeal joints. SOFT TISSUES:Expected intraoperative findings. OTHER: Negative. IMPRESSION: 1. Hardware revision involving left midfoot. Electronically authenticated by: BLANKA OLGUIN Date: 2023-04-13 11:35[facility]05-15-2023 NotePROCEDURE: XR FOOT LT MIN 3 [...] authenticated by: BLANKA OLGUIN Date: 2023-04-13 11:29[facility]05-09-2023 NotePROCEDURE: XR FOOT LT MIN 3 [...] authenticated by: BLANKA OLGUIN Date: 2023-04-07 13:31[facility]05-08-2023 Evaluation note* Encounter Date Diagnosis Assessment Notes Treatment Notes Treatment Clinical Notes March, Type 2 diabetes wicho itus with diabetic neuropathy, unspecified (ICD-10 - E11.40) March,Type 2 diabetes mellitus with hyperglycemia, without long-term current use of insulin (ICD-10 - E11.65) [facility] Other 05-02-2023 Evaluation note* Encounter Date Diagnosis [...] as scheduled. Most recent A1C was 7.0. [facility] Other 04-27-2023 Evaluation note* Encounter Date Diagnosis Assessment Notes Treatment Notes Treatment Clinical Notes Feb, Hypertensive chronic kidney disease with stage 1 through stage 4 chronic kidney disease, or unspecified chronic kidney disease (ICD-10 - I12.9) Feb,Type 2 diabetes mellitus with diabetic neuropathy, unspecified (ICD- 10 - E11.40) [facility] Other 04-11-2023 Evaluation note* Encounter Date Diagnosis [...] have advised to continue with oral magnesium. [facility] Other 04-05-2023 Evaluation note* Encounter Date Diagnosis Assessment Notes Treatment Notes Treatment Clinical Notes Feb, Hyperlipidemia (ICD-10 - E78.5) [facility] Other 04-05-2023 Evaluation note* Encounter Date Diagnosis Assessment Notes Treatment Notes Treatment Clinical Notes Feb, Obstructive apnea (ICD-10 - G47. 33) Feb,Insomnia (ICD-10 - G47.00) Feb,Neuropathy (ICD-10 - G62.9) [facility] Other 04-05-2023 NotePROCEDURE: XR FOOT LT MIN [...] authenticated by: BLANKA OLGUIN Date: 2023-03-04 06:39[facility]03-20-2023 Evaluation note* Encounter Date Diagnosis Assessment Notes Treatment Notes Treatment Clinical Notes Jan, Hypertensive chronic kidney disease with stage 1 through stage 4 chronic kidney disease, or unspecified chronic kidney disease (ICD-10 - I12.9) Jan,iabetic neuropathy (ICD-10 - E11.40) [facility] Other 03-09-2023 Evaluation note* Encounter Date Diagnosis Assessment Notes Treatment Notes Treatment Clinical Notes Jan, Hyperuricemia (ICD-10 - E79.0) [facility] Other 03-08-2023 NotePROCEDURE: XR FOOT LT MIN [...] authenticated by: BRODERICK FLOR Date: 2023-02-04 09:36[facility]02-22-2023 NotePROCEDURE: XR FOOT LT MIN 3 [...] authenticated by: BLANKA OLGUIN Date: 2023-01-21 10:26[facility]02-20-2023 Evaluation note* Encounter Date Diagnosis Assessment Notes Treatment Notes Treatment Clinical Notes Dec, Diabetic neuropathy (ICD-10 - E1 1.40) [facility] Other [id number] NotePROCEDURE: XR FOOT LT MIN 3 VIEWS, [...] authenticated by: BLANKA OLGUIN Date: 2022-12-29 17:33[facility]01-30-2023 NotePROCEDURE: XR FOOT LT MIN 3 [...] authenticated by: BLANKA OLGUIN Date: 2022-12-29 17:33[facility]01-30-2023 NotePROCEDURE: XR FOOT LT 2V HISTORY: Pain COMPARISON: XR foot bilateral 11/12/2022 FINDINGS: BONES:Multiple intraoperative spot fluoroscopic images demonstrate resection of the bases of the metatarsals followed by midfoot fusion via lag screws. Talocalcaneal fusion. SOFT TISSUES:Expected intraoperative findings. IMPRESSION: 1. Midfoot resection and fusion. 2. Talocalcaneal fusion. Electronically authenticated by: BLANKA OLGUIN Date: 2022-12-29 17:31[facility]01-24-2023 NoteEXAM: XR CHEST 2 V HISTORY: [...] authenticated by: ACOSTA JOHNSON Date: 2022-12-23 12:48[facility]11-29-2022 Evaluation note* Encounter Date Diagnosis Assessment Notes Treatment Notes Treatment Clinical Notes Sep, Encounter for immunization (ICD- 10 - Z23) Patient presents today for Shingrix vaccination #1 of 2. Patient denies current acute illness, denies any past allergy or serious reaction to previousvaccine or ingredients. Shingrix Vaccine material and current VIS discussed and provided to patient. [facility] Other 11-17-2022 Evaluation note* Encounter Date Diagnosis Assessment Notes Treatment Notes Treatment Clinical Notes Sep, Encounter for immunization (ICD- 10 - Z23) Patient denies current illness, previous allergic reaction to influenza vaccine, eggs, or other vaccines, and Guillain[place] Syndrome. Patient given current editions of influenza Vaccine Information Statement (VIS). [facility] Other 11-17-2022 Evaluation note* Encounter Date Diagnosis Assessment Notes Treatment Notes Treatment Clinical Notes Sep, Hypertensive chronic kidney disease with stage 1 through stage 4 chronic kidney disease, or unspecified chronic kidney disease (ICD-10 - I12.9) [facility] Other 11-17-2022 Evaluation note* Encounter Date Diagnosis Assessment Notes Treatment Notes Treatment Clinical Notes Sep, Encounter for immunization (ICD- 10 - Z23) Patient presents today for COVID-19 vaccination booster. Patient pre-vaccination form answers reviewed. Patient denies current illness or allergic reaction to any component of a COVD-19 vaccine. Patient provided with copy of current EUA. [facility] Other 10-26-2022 Evaluation note* Encounter Date Diagnosis [...] her to take a low phosphorus diet. [facility] Other 10-04-2022 Evaluation note* Encounter Date Diagnosis [...] E11.40) Pateint continues on the above medications. [facility] Other 09-08-2022 Evaluation note* Encounter Date Diagnosis Assessment Notes Treatment Notes Treatment Clinical Notes Jul, Diabetic neuropathy (ICD-10 - E1 1.40) [facility] Other 08-17-2022 Evaluation note* Encounter Date Diagnosis Assessment Notes Treatment Notes Treatment Clinical Notes Jun, Hyperlipidemia (ICD-10 - E78.5) Jun,KD (chronic kidney disease) stage 3, GFR 30-59 ml/min (ICD-10 - N18.3) Jun,Essential hypertension (ICD-10 - I10) [facility] Other 08-03-2022 Evaluation note* Encounter Date Diagnosis Assessment Notes Treatment Notes Treatment Clinical Notes Jun, Type 2 diabetes wicho itus with diabetic neuropathy, unspecified (ICD-10 - E11.40) [facility] Other 06-01-2022 Evaluation note* Encounter Date Diagnosis Assessment Notes Treatment Notes Treatment Clinical Notes Apr, Obstructive apnea (ICD-10 - G47. 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 March,hortness of breath (ICD-10 - R06.02) Patient is to continue to follow with the roofer apprentice as scheduled. March,arathyroid disease (ICD-10 - E21.5) Patient is to continue to follow with the specialist as scheduled. March,harcot foot due to diabetes mellitus (ICD-10 - E11.610) Patient is to continue to follow with as scheduled. [facility] Other 05-09-2022 Evaluation note* Encounter Date Diagnosis Assessment Notes Treatment Notes Treatment Clinical Notes March, Type 2 diabetes wicho itus with diabetic neuropathy, unspecified (ICD-10 - E11.40) March,Type 2 diabetes mellitus with hyperglycemia, without long-term current use of insulin (ICD-10 - E11.65) [facility] Other 03-24-2022 Evaluation note* Encounter Date Diagnosis [...] her to take a low phosphorus diet. [facility] Other 03-11-2022 Evaluation note* Encounter Date Diagnosis [...] her symptoms worsen. 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 I did provide a work note excuse today. Jan,hortness of breath (ICD-10 - R06.02) In house EKG ordered and reviewed. Cardiac consult recommended as above. Jan,iabetic neuropathy (ICD-10 - E11.40) Worsening bilateral neuropathy reported by the patient . she has been consulting with campground caretaker who per patient has suggested it may [...] The patient encourged to follow up with plate mill hand as scheduled, discussion was had she would benefit from a pulmonary function test. [facility] Other 02-22-2022 Evaluation note* Encounter Date Diagnosis Assessment Notes Treatment Notes Treatment Clinical Notes Dec, Type 2 diabetes wicho itus with diabetic neuropathy, unspecified (ICD-10 - E11.40) [facility] Other 01-04-2022 Evaluation note* Encounter Date Diagnosis [...] deficiency (ICD-10 - E55.9) Blood work ordered. [facility] Other 02-01-2015 History general Narrative - Reported* Type Description Date Medical History DM2 Medical HistoryHTNMedical HistorySleep apneaMedical Historyhypercalcemia due to PHT s/p surgery in FMedical HistoryneuropathyMedical History12/2014 colonscopy refusedMedical History12/31/2015 MRI left kneeMedical History04/15/19 colonoscopy refused; cologuard orderedMedical Ukzkpce07/19/19 Colonoscopy-abnormal repeat in 4 years (pos cologuard)Medical Nnmkqqh08/2019 Pap w/ Dr. SeymourerMedical History Skin ulcer of left foot, limited to breakdown of skinMedical HistorySepsis, unspecified organismMedical HistoryH/O parathyroidectomyMedical HistoryRIGHT FOOT FRACTURESurgical Historycervical fusion and low back gyfuap2908Xggifoik HistoryProcedure:;Disease:Zaeusnngi9411Ehnwyqbs Historyprevious cervical gjgywt1330Xmttqgky HistoryProcedure:;Disease:Ssbjqkvau3623Jhjzypia History c/uzdqryc8315Phdpustd HistoryProcedure:;Disease:Xfvbkpfma7136Ixopmwds Wtzciviojisdqqpke7875Xiraiihq HistoryProcedure:tubal ligationSurgical History Procedure:Low back fusionSurgical Historytubal cayhvbub4735Umonmnzv History2 parathyroids igmgpkm76/2013Surgical HistoryProcedure:cervical fusionSurgical HistoryBilateral eyelid swoqrha76/2012Surgical HistoryProcedure:x2 thyroid glands dvypbyq3389Fgwvfbje Historyleft knee arthoscopy02/2016Surgical History lithotripsy03/2015Surgical Historyleft knee arthroscopy02/2016Surgical History partial left knee replacement12/2016Surgical Historyincision and drainage necrotizing fasciiitis seroma/bullae left lateral ankle/midfoot12/27/17urgical Historypartial left knee swnfgvozbmf12/2017Surgical HistoryI&D, debridement necrotizing fasciitis left ankle12/27/2017Surgical HistoryLeft ankle I & D1-2018 Surgical HistoryGallbladder01/2018Surgical HistoryLap. cholecystectomy02/17/2018 Surgical Hkanjbpjcqxhtdzhbq66/19/2019Surgical HistoryColonoscopy06/17/2019 Surgical Historylow back xdgkmxy5707/25/2020Hospitalization Yfemspiyrbxmwaujbx6776 Hospitalization Historynecrotizing fasciitis11/2017Hospitalization Historysee above [facility] Other 02-01-2015 History general Narrative - Reported* Type Description Date Medical History DM2 Medical HistoryHTNMedical HistorySleep apneaMedical Historyhypercalcemia due to PHT [facility] HistoryneuropathyMedical History12/2014 colonscopy refusedMedical History12/31/2015 MRI left kneeMedical History04/15/19 colonoscopy refused; cologuard orderedMedical Gchuspj11/19/19 Colonoscopy-abnormal repeat in 4 years (pos cologuard)Medical Fndckbq32/2019 Pap w/ Dr. SeymourerMedical History Skin ulcer of left foot, limited to breakdown of skinMedical HistorySepsis, unspecified organismMedical HistoryH/O parathyroidectomyMedical HistoryRIGHT FOOT FRACTURESurgical Historycervical fusion and low back tavpqh5647Ppiqvphj HistoryProcedure:;Disease:Jadaaekji8191Myuumgtk Historyprevious cervical liqpwh8649Noowyjfk HistoryProcedure:;Disease:Smegiozsg1603Lupgvgtz History c/vnedjsc5397Aesxbgyy HistoryProcedure:;Disease:Mvovevufp6215Riatqcdh Nkilbspeydjjzsdsm7558Ipxxcufj HistoryProcedure:tubal ligationSurgical History Procedure:Low back fusionSurgical Historytubal khodwpzj2550Albvwuco History2 parathyroids xqhzwir77/2013Surgical HistoryProcedure:cervical fusionSurgical HistoryBilateral eyelid sgghhyq54/2012Surgical HistoryProcedure:x2 thyroid glands zzwqeia8050Elqapnbp Historyleft knee arthoscopy02/2016Surgical History lithotripsy03/2015Surgical Historyleft knee arthroscopy02/2016Surgical History partial left knee replacement12/2016Surgical Historyincision and drainage necrotizing fasciiitis seroma/bullae left lateral ankle/midfoot12/27/17urgical Historypartial left knee hnosjedrqyr32/2017Surgical HistoryI&D, debridement necrotizing fasciitis left ankle12/27/2017Surgical HistoryLeft ankle I & D1-2018 Surgical HistoryGallbladder01/2018Surgical HistoryLap. cholecystectomy02/17/2018 Surgical Ijzbgmbewifdbevuyf05/19/2019Surgical HistoryColonoscopy06/17/2019 Surgical Historylow back ggywoei2407/25/2020Surgical HistoryCardiac cath with stent placement mid LAD03/27/2022Hospitalization Jyqgknobivflzbjdxk8095 Hospitalization Historynecrotizing fasciitis11/2017Hospitalization Historysee above [facility] Other 02-01-2015 History general Narrative - Reported* Type Description Date Medical History DM2 Medical HistoryHTNMedical HistorySleep apneaMedical Historyhypercalcemia due to PHT s/p surgery in FMedical HistoryneuropathyMedical History12/2014 colonscopy refusedMedical History12/31/2015 MRI left kneeMedical History04/15/19 colonoscopy refused; cologuard orderedMedical Eftsnce83/19/19 Colonoscopy-abnormal repeat in 4 years (pos cologuard)Medical Yoxeofc58/2019 Pap w/ Dr. SeymourerMedical History Skin ulcer of left foot, limited to breakdown of skinMedical HistorySepsis, unspecified organismMedical HistoryH/O parathyroidectomyMedical HistoryRIGHT FOOT FRACTUREMedical HistoryLEFT FOOT LUCAS SEEING PODIATRISTSurgical History cervical fusion and low back vptpcz7083Zlgzxzci History Procedure:;Disease:Nowedlgod1106Drnnnxem Historyprevious cervical fusion 1997Surgical HistoryProcedure:;Disease:Nbrjtoytk7954Mixzydvf History c/fzpzcej2294Dbjqiywt HistoryProcedure:;Disease:Unsavlvvg4340Cdqcacbg Surjcqiekemgxddot6619Univtrvz HistoryProcedure:tubal ligationSurgical History Procedure:Low back fusionSurgical Historytubal jbvtdtzn6451Zjnnlvzx History2 parathyroids ofaddch13/2013Surgical HistoryProcedure:cervical fusionSurgical HistoryBilateral eyelid hpvicyn40/2012Surgical HistoryProcedure:x2 thyroid glands rjjhunu7761Autccwhh Historyleft knee arthoscopy02/2016Surgical History lithotripsy03/2015Surgical Historyleft knee arthroscopy02/2016Surgical History partial left knee replacement12/2016Surgical Historyincision and drainage necrotizing fasciiitis seroma/bullae left lateral ankle/midfoot12/27/urgical Historypartial left knee znqcizroqok36/2017Surgical HistoryI&D, debridement necrotizing fasciitis left ankle12/27/2017Surgical HistoryLeft ankle I & D1-2018 Surgical HistoryGallbladder01/2018Surgical HistoryLap. cholecystectomy02/17/2018 Surgical Qvciolikuiywrxyybx75/19/2019Surgical HistoryColonoscopy06/17/2019 Surgical Historylow back iteontp3807/25/2020Surgical HistoryCardiac cath with stent placement mid LAD03/27/2022Hospitalization Qngoilalakzjxqcpjq0679 Hospitalization Historynecrotizing fasciitis11/2017Hospitalization Historysee above [facility] Other 02-01-2015 History general Narrative - Reported* Type Description Date Medical History DM2 Medical HistoryHTNMedical HistorySleep apneaMedical Historyhypercalcemia due to PHT s/[facility] HistoryneuropathyMedical History12/2014 colonscopy refusedMedical History12/31/2015 MRI left kneeMedical History04/15/19 colonoscopy refused; cologuard orderedMedical Zgjgmli75/19/19 Colonoscopy-abnormal repeat in 4 years (pos cologuard)Medical Gptvdtr02/2019 Pap w/ Dr. SeymourerMedical History Skin ulcer of left foot, limited to breakdown of skinMedical HistorySepsis, unspecified organismMedical HistoryH/O parathyroidectomyMedical HistoryRIGHT FOOT FRACTUREMedical HistoryLEFT FOOT LUCAS SEEING PODIATRISTSurgical History cervical fusion and low back nbfwsx1941Bvixefoe History Procedure:;Disease:Jzulitxps2103Tplduecu Historyprevious cervical fusion 1997Surgical HistoryProcedure:;Disease:Ejjyfphho1892Moubbvjk History c/kadqhgw6987Vaalhwsi HistoryProcedure:;Disease:Ysrrrdkav0378Fztoehgj Cyaftfkejtertuaoo3074Ytldzgtt HistoryProcedure:tubal ligationSurgical History Procedure:Low back fusionSurgical Historytubal cscbruru6533Tbpbjqis History2 parathyroids kqrpuhs55/2013Surgical HistoryProcedure:cervical fusionSurgical HistoryBilateral eyelid mrklafy61/2012Surgical HistoryProcedure:x2 thyroid glands llqnhyp0708Ipcaxtqz Historyleft knee arthoscopy02/2016Surgical History lithotripsy03/2015Surgical Historyleft knee arthroscopy02/2016Surgical History partial left knee replacement12/2016Surgical Historyincision and drainage necrotizing fasciiitis seroma/bullae left lateral ankle/midfoot12/27/urgical Historypartial left knee bbkjvduoqfl20/2017Surgical HistoryI&D, debridement necrotizing fasciitis left ankle12/27/2017Surgical HistoryLeft ankle I & D1-2017 Surgical HistoryGallbladder01/2018Surgical HistoryLap. cholecystectomy02/17/2018 Surgical Nbrhmfiaimuhghivex42/19/2019Surgical HistoryColonoscopy06/17/2019 Surgical Historylow back ytotfop7307/25/2020Surgical HistoryCardiac cath with stent placement mid LAD03/27/2022urgical Historyreconstruction lt foot surgery 12/29/2022Hospitalization Hxkzzmawlmfidawprz4109Esuifpbgykrdfla History necrotizing fasciitis11/2017Hospitalization Historysee above [facility] Other 02-01-2015 History general Narrative - Reported* Type Description Date Medical History DM2 Medical HistoryHTNMedical HistorySleep apneaMedical Historyhypercalcemia due to PHT s/[facility] HistoryneuropathyMedical History12/2014 colonscopy refusedMedical History12/31/2015 MRI left kneeMedical History04/15/19 colonoscopy refused; cologuard orderedMedical Kbfjlzt91/19/19 Colonoscopy-abnormal repeat in 4 years (pos cologuard)Medical Vjedigm39/2019 Pap w/ Dr. SeymourerMedical History Skin ulcer of left foot, limited to breakdown of skinMedical HistorySepsis, unspecified organismMedical HistoryH/O parathyroidectomyMedical HistoryRIGHT FOOT FRACTUREMedical HistoryLEFT FOOT LUCAS SEEING PODIATRISTSurgical History cervical fusion and low back dkalxn9125Uzahutmm History Procedure:;Disease:Tcrrszauc2726Mvcsrckx Historyprevious cervical fusion 1997Surgical HistoryProcedure:;Disease:Macyhrjiv3487Iuqwyoqm History c/qhiscal1241Kfpupubi HistoryProcedure:;Disease:Vjnlaakye3864Mmobhhjk Fclrdxydempaarlce3183Pwldazqw HistoryProcedure:tubal ligationSurgical History Procedure:Low back fusionSurgical Historytubal pojmovhw4845Dxzvqbti History2 parathyroids zysfmaj96/2013Surgical HistoryProcedure:cervical fusionSurgical HistoryBilateral eyelid ysxrdha76/2012Surgical HistoryProcedure:x2 thyroid glands uvjbpsk0202Svgsihxz Historyleft knee arthoscopy02/2016Surgical History lithotripsy03/2015Surgical Historyleft knee arthroscopy02/2016Surgical History partial left knee replacement12/2016Surgical Historyincision and drainage necrotizing fasciiitis seroma/bullae left lateral ankle/midfoot12/27/17urgical Historypartial left knee gpfvxeclqan39/2017Surgical HistoryI&D, debridement necrotizing fasciitis left ankle12/27/2017Surgical HistoryLeft ankle I & D1-2018 Surgical HistoryGallbladder01/2018Surgical HistoryLap. cholecystectomy02/17/2018 Surgical Koumkxsofbcdqhlifr55/19/2019Surgical HistoryColonoscopy06/17/2019 Surgical Historylow back surgery-zmgmju4307/25/2020Surgical HistoryCardiac cath with stent placement mid LAD03/27/2022urgical Historyreconstruction lt foot btdhuye9412/29/2022Hospitalization Mrwepriosekgyzztca2511Vcazfnbhqzenzlu History necrotizing fasciitis11/2017Hospitalization Historysee above [facility] Other 02-01-2015 History general Narrative - Reported* Type Description Date Medical History DM2 Medical HistoryHTNMedical HistorySleep apneaMedical Historyhypercalcemia due to P[facility] HistoryneuropathyMedical History12/2014 colonscopy refusedMedical History12/31/2015 MRI left kneeMedical History04/15/19 colonoscopy refused; cologuard orderedMedical Cahjjrm46/19/19 Colonoscopy-abnormal repeat in 4 years (pos cologuard)Medical Huljwti84/2019 Pap w/ Dr. SeymourerMedical History Skin ulcer of left foot, limited to breakdown of skinMedical HistorySepsis, unspecified organismMedical HistoryH/O parathyroidectomyMedical HistoryRIGHT FOOT FRACTUREMedical HistoryLEFT FOOT LUCAS SEEING PODIATRISTSurgical History cervical fusion and low back odeigy0737Fkvngrke History Procedure:;Disease:Nlwjfmprp8626Zpdjkakc Historyprevious cervical fusion 1997Surgical HistoryProcedure:;Disease:Alrpzbzqb6073Nhzyeiap History c/yloeplh8430Twhjjzpy HistoryProcedure:;Disease:Ujjbassso6586Umrqjzpu Ypyottrlopbspatxi9446Riujxeuu HistoryProcedure:tubal ligationSurgical History Procedure:Low back fusionSurgical Historytubal fgkcxyuf7220Mvjwyoqo History2 parathyroids rpeljns69/2013Surgical HistoryProcedure:cervical fusionSurgical HistoryBilateral eyelid lhntvuh96/2012Surgical HistoryProcedure:x2 thyroid glands uirmacp8911Osmzbmjo Historyleft knee arthoscopy02/2016Surgical History lithotripsy03/2015Surgical Historyleft knee arthroscopy02/2016Surgical History partial left knee replacement12/2016Surgical Historyincision and drainage necrotizing fasciiitis seroma/bullae left lateral ankle/midfoot12/27/17urgical Historypartial left knee fvimmgemxje96/2017Surgical HistoryI&D, debridement necrotizing fasciitis left ankle12/27/2017Surgical HistoryLeft ankle I & D1-2017 Surgical HistoryGallbladder01/2018Surgical HistoryLap. cholecystectomy02/17/2018 Surgical Bjqhxghqrcrtqyashy82/19/2019Surgical HistoryColonoscopy06/17/2019 Surgical Historylow back surgery-exyqam5307/25/2020Surgical HistoryCardiac cath with stent placement mid LAD03/27/2022urgical Historyreconstruction lt foot surgery Dr. Castro12/29/2022Hospitalization Xtrkkuzhuwlkyqqmvf8568 Hospitalization Historynecrotizing fasciitis11/2017Hospitalization Historysee above [facility] Other 02-01-2015 History general Narrative - Reported* Type Description Date Medical History DM2 Medical HistoryHTNMedical HistorySleep apneaMedical Historyhypercalcemia due to PHT [facility] HistoryneuropathyMedical History12/2014 colonscopy refusedMedical History12/31/2015 MRI left kneeMedical History04/15/19 colonoscopy refused; cologuard orderedMedical Qtyihrb00/19/19 Colonoscopy-abnormal repeat in 4 years (pos cologuard)Medical Xuhfopt53/2019 Pap w/ Dr. SeymourerMedical History Skin ulcer of left foot, limited to breakdown of skinMedical HistorySepsis, unspecified organismMedical HistoryH/O parathyroidectomyMedical HistoryRIGHT FOOT FRACTUREMedical HistoryLEFT FOOT LUCAS SEEING PODIATRISTSurgical History cervical fusion and low back ozcqho1097Uqytmmnd History Procedure:;Disease:Sxcpvceaw0772Vddqlejk Historyprevious cervical fusion 1997Surgical HistoryProcedure:;Disease:Cvhqnzfge4236Ofeoquqe History c/ybdixra5406Goedltfv HistoryProcedure:;Disease:Bydhsrqrj3070Fzgjuccp Ojifrhljgcdnkreiz1324Fvwzmxhh HistoryProcedure:tubal ligationSurgical History Procedure:Low back fusionSurgical Historytubal vhqsauwr3032Dwsdkgmq History2 parathyroids /2013Surgical HistoryProcedure:cervical fusionSurgical HistoryBilateral eyelid awanlxx37/2012Surgical HistoryProcedure:x2 thyroid glands szmtant9874Sewhwgjm Historyleft knee arthoscopy02/2016Surgical History lithotripsy03/2015Surgical Historyleft knee arthroscopy02/2016Surgical History partial left knee replacement12/2016Surgical Historyincision and drainage necrotizing fasciiitis seroma/bullae left lateral ankle/midfoot12/27/17urgical Historypartial left knee mqiesuffdkb88/2017Surgical HistoryI&D, debridement necrotizing fasciitis left ankle12/27/2017Surgical HistoryLeft ankle I & D1-2018 Surgical HistoryGallbladder01/2018Surgical HistoryLap. cholecystectomy02/17/2018 Surgical Hakhqrinaxjfpsuqaq92/19/2019Surgical HistoryColonoscopy06/17/2019 Surgical Historylow back surgery-fixyof7407/25/2020Surgical HistoryCardiac cath with stent placement mid LAD03/27/2022urgical Historyreconstruction lt foot surgery Dr. Castro12/29/2022Surgical HistorySTEROID INJECTIONS IN LOW BACK AND RIGHT HIP08/2023Hospitalization Iwmmjqbpvnkeemxjli4312Zddqxlijsckbxmb Historynecrotizing fasciitis11/2017Hospitalization Historysee above [facility] [employer] Other Evaluation noteNort [employer] Other Evaluation noteNo InformationNort [employer] Other Evaluation noteNort [employer] Other evaluation noteNo assessment information available [facility] [place] Work Phone: Evaluation note* Diagnosis Coronary artery disease, unspecified vessel or lesion type, unspecified whether angina present, unspecified whether [place] or transplanted heart- Primary Essential hypertension Unspecified essential hypertension 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 Hyperlipidemia, unspecified hyperlipidemia type Obstructive sleep apnea syndrome Obstructive sleep apnea (adult) (pediatric) Class 2 obesity with body mass index (BMI) of 37.0 to 37.9 in adult, unspecified obesity type, unspecified whether serious comorbidity present Insulin-requiring or dependent type II diabetes mellitus ([facility]) Type II or unspecified type diabetes mellitus without mention of complication, not stated as uncontrolled documented in this encounter [facility] Work Phone: Evaluation note* Diagnosis Onset Date Resolution Status Chronic pain acuteInflammation of sacroiliac jointacuteOsteoarthritis of spine with radiculopathy, lumbar regionacuteTrochanteric bursitisacute [facility] [place] Work Phone: Evaluation note* Diagnosis Onset Date Resolution Status Chronic pain acuteInflammation of sacroiliac jointacuteOsteoarthritis of spine with radiculopathy, lumbar regionacuteTrochanteric bursitisacuteCKD (chronic kidney disease) stage 3, GFR 30-59 ml/minacuteHyperlipidemiaacuteHyperparathyroidism [id number]itznfzufqxclljpzoeIeazmpicjxmjsmn acuteType 2 diabetes mellitus with diabetic chronic kidney diseaseacute [facility] Work Phone: Evaluation note* Diagnosis Onset Date Resolution Status Chronic pain acuteInflammation of sacroiliac jointacuteOsteoarthritis of spine with radiculopathy, lumbar regionacuteTrochanteric bursitisacuteCKD (chronic kidney disease) stage 3, GFR 30-59 ml/minacuteHyperlipidemiaacuteHyperparathyroidism ywfesELA-RACS-[id number]lfdaqisdznlnzdfqqsAphfwaofjbmdugq acuteType 2 diabetes mellitus with diabetic chronic kidney diseaseacuteChronic painacuteLumbar muscle painacuteOsteoarthritis of spine with radiculopathy, lumbar regionacute [facility] Work Phone: Evaluation note* Diagnosis Onset Date Resolution Status CKD (chronic kidney disease) stage 3, GF R 30-59 ml/min srmsdEbbtsuixigwiqwflvxbZmjqbohjasaqodpntqxlaiuaGES-NQUJ-[id number] HyperuricemiaacuteHypomagnesemiaacuteNephrolithiasisacuteType 2 diabetes mellitus with diabetic chronic kidney diseaseacuteChronic painacuteLumbar muscle painacuteOsteoarthritis of spine with radiculopathy, lumbar regionacuteChronic painacuteOsteoarthritis of spine with radiculopathy, lumbar regionacute Sacroiliitis, not elsewhere classifiedacute [facility] Work Phone: evaluation note* Diagnosis Onset Date Resolution Status Chronic pain acuteLumbar muscle painacuteOsteoarthritis of spine with radiculopathy, lumbar regionacuteChronic painacuteOsteoarthritis of spine with radiculopathy, lumbar regionacuteSacroiliitis, not elsewhere classifiedacute [facility] [place] Work Phone: evaluation note* Diagnosis Onset Date Resolution Status Chronic pain acuteLumbar muscle painacuteOsteoarthritis of spine with radiculopathy, lumbar regionacuteChronic painacuteOsteoarthritis of spine with radiculopathy, lumbar regionacuteSacroiliitis, not elsewhere classifiedacuteObstructive apneaacute [facility] Work Phone: evaluation note* Diagnosis Onset Date Resolution Status Chronic pain acuteLumbar muscle painacuteOsteoarthritis of spine with radiculopathy, lumbar regionacuteChronic painacuteOsteoarthritis of spine with radiculopathy, lumbar regionacuteSacroiliitis, not elsewhere classifiedacuteObstructive apneaacute Chronic painacuteOsteoarthritis of spine with radiculopathy, lumbar regionacute Sacroiliitis, not elsewhere classifiedacute [facility] Work Phone: Evaluation note* Diagnosis Onset Date Resolution Status Chronic pain acuteOsteoarthritis of spine with radiculopathy, lumbar regionacuteSacroiliitis, not elsewhere classifiedacute [facility] [place] Work Phone: evaluation note* Diagnosis Type 2 diabetes mellitus with peripheral neuropathy ([facility]/HCC)- Primary 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 ([facility]) Long-term insulin use ([facility]) Class 2 severe obesity due to excess calories with serious comorbidity and body mass index (BMI) of39.0 to 39.9 in adult ([facility]) Type 2 diabetes mellitus with peripheral neuropathy ([facility])- Primary 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 ([facility]) Class 2 severe obesity due to excess calories with serious comorbidity and body mass index (BMI) of39.0 to 39.9 in adult ([facility]) Long-term insulin use ([facility]) Spondylolisthesis at L3-L4 level Class 2 severe obesity due to excess calories with serious comorbidity and body mass index (BMI) of38.0 to 38.9 in adult ([facility])- Primary Type 2 diabetes mellitus with both eyes affected by mild nonproliferative retinopathy without macular edema, with long-term current use of insulin ([facility]) Type 2 diabetes mellitus with peripheral neuropathy ([facility]) 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 ([facility]) Long-term insulin use ([facility]) Type 2 diabetes mellitus with peripheral neuropathy ([facility])- Primary 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 ([facility]) Type 2 diabetes mellitus with both eyes affected by mild nonproliferative retinopathy without macular edema, with long-term current use of insulin ([facility]) Long-term insulin use ([facility]) Class 2 severe obesity due to excess calories with serious comorbidity and body mass index (BMI) of39.0 to 39.9 in adult ([facility]) documented in this encounter [facility] HealthcareEvaluation note* Diagnosis Coronary artery disease, unspecified vessel or lesion type, unspecified whether angina present, unspecified whether king [place] or transplanted heart Elevated coronary artery calcium [...] serious comorbidity present documented in this encounter [facility] Work Phone: Evaluation note* Author France Carlson [facility] Centerb[facility] 2024 10:30amThe above note written by ITZ Teresa acting as human recorder, note dictated by Dr. Charan Casey. 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) Class 2 severe obesity due to excess calories with serious comorbidity and body mass index (BMI) of39.0 to 39.9 in adult ([facility]-HCC) Long-term insulin use (HCC) Spondylolisthesis at L3-L4 level Class 2 severe obesity due to excess calories with serious comorbidity and body mass index (BMI) of38.0 to 38.9 in adult ([facility]-HCC)- Primary Type 2 diabetes mellitus with [...] index (BMI) of39.0 to 39.9 in adult ([facility]-HCC) Type 2 diabetes mellitus with Charcot's [...] index (BMI) of37.0 to 37.9 in adult ([facility]-HCC) Type 2 diabetes mellitus with Charcot's [...] index (BMI) of35.0 to 35.9 in adult ([facility]) documented in this encounter [facility] HealthcareEvaluation note* Diagnosis Type 2 diabetes mellitus with peripheral neuropathy (HCC)- Primary 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) Long-term insulin use (HCC) Class 2 severe obesity due to excess calories with serious comorbidity and body mass index (BMI) of39.0 to 39.9 in adult ([facility]) Type 2 diabetes mellitus with peripheral neuropathy (HCC)- Primary 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) Class 2 severe obesity due to excess calories with serious comorbidity and body mass index (BMI) of39.0 to 39.9 in adult ([facility]) Long-term insulin use ([facility]) Spondylolisthesis at L3-L4 level Class 2 severe obesity due to excess calories with serious comorbidity and body mass index (BMI) of38.0 to 38.9 in adult ([facility])- Primary Type 2 diabetes mellitus with both [...] index (BMI) of39.0 to 39.9 in adult ([facility]) 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)- Primary Type 2 diabetes mellitus with peripheral neuropathy (HCC) Type 2 diabetes mellitus with both eyes affected by mild nonproliferative retinopathy without macular edema, with long-term current use of insulin (HCC) Long-term insulin use ([facility]) Class 2 severe obesity due to excess calories with serious comorbidity and body mass index (BMI) of37.0 to 37.9 in adult ([facility]) 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)- Primary Type 2 diabetes mellitus with peripheral neuropathy ([facility]) Type 2 diabetes mellitus with both eyes affected by mild nonproliferative retinopathy without macular edema, with long-term current use of insulin (HCC) Long-term insulin use ([facility]) Class 2 severe obesity due to excess calories with serious comorbidity and body mass index (BMI) of35.0 to 35.9 in adult ([facility]) Type 2 diabetes mellitus with peripheral neuropathy ([facility])- Primary 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 ([facility]) Type 2 diabetes mellitus with both eyes affected by mild nonproliferative retinopathy without macular edema, with long-term current use of insulin (HCC) Long-term insulin use ([facility]) Class 2 severe obesity due to excess calories with serious comorbidity and body mass index (BMI) of35.0 to 35.9 in adult ([facility]) [facility] Narrative - ReportedNinthDecimal Other History general Narrative - ReportedNinthDecimal Other Hospital Discharge instructions Additional Instructions DISCHARGE [...] years. -Follow up with PCP. -Office number [phone]. [facility] Work Phone: Relsdf for referral (narrative)* Consultation (Routine) - AuthorizedSpecialtyDiagnoses / ProceduresReferred By Contact Referred To ContactCardiology Diagnoses Coronary artery disease, unspecified vessel or lesion type, unspecified whether angina present, unspecified whether king salmon or transplanted heart Procedures Follow Up In Cardiology Rosalinda Torres MD [address] [place] [id number] Rosalinda Torres MD [address] [place] [address], [address] [address] Referral IDStatusReasonStart DateExpiration DateVisits RequestedVisits [id number]/25/20243/ [facility] Work Phone: Rerglc for referral (narrative)* Consultation (Routine) - AuthorizedSpecialtyDiagnoses / ProceduresReferred By Contact Referred To ContactCardiology Diagnoses Coronary artery disease, unspecified vessel or lesion type, unspecified whether angina present, unspecified whether king salmon or transplanted heart Procedures Follow Up In Cardiology Rosalinda Torres MD [address] [facility] [address] [place] [address] Rosalinda Torres MD [address] [facility] [address] [place] [address] Referral IDStatusReasonStart DateExpiration DateVisits RequestedVisits [id number]/26/20249/ [facility] Work Phone: Recnwd for referral (narrative)No reason for referral information availableCherrington Hospital Work Phone: Summary Purpose Family History [...] the patient is agreeable to go on reguybggonzg02 mg daily along with Zetia 10 mg [...] any trouble since her angioplasty. She has Wnjazvz-Pvtte-Fuury disease and had recent surgery on the [...] has been compliant with it. * 7 Dubsjxs-Tvfoi-Ifonx joint in the ankles status post recent surgery on the left foot with plan to repair the right foot down the road Reason for Referral Reason Patient is need ing to having screening colonoscopy. Please schedule with [facility] Gastro. Patient DOES NOT want to see Dr. Bryant. Please call patient to schedule Diagnosis 1 Screening for colon cancer (Z12.11) Referral Organization [facility] Family Medicin e [place] Referring Provider First Name Charan Referring Provider Last Name Jacinto Referring Provider Specialty Family Prac pop Referred Organization [facility] Gastroenterolo gy Referred Provider Yasmeen Treadwell Referred Address [address] [facility] [address] ,[place], [place],[address] Referred Provider Specialty Gastroentero logy Referral Priority Routine General Notes Fore, Renée M 023 10:30:05 AM >Received today and sent P2P Reason stat consult and lou at Diagnosis 1 Chest pressure (R07. 89) Diagnosis 2 Shortness of breath (R06.02) Diagnosis 3 Type 2 diabetes wicho itus with diabetic neuropathy, unspecified (E11.40) Diagnosis 4 Obstructive apnea (G 47.33) Referral Organization [facility] Family Medicin e [place] Referring Provider First Name Charan Referring Provider Last Name Jacinto Referring Provider Specialty Family Prac pop Referred Organization [facility] enter Referred Address [address] [facility] [address] ,[place], [place],[address] Referred Provider Specialty Cardiology Referral Priority Stat [...] stage 3, GFR 30-59 ml/min Hyperlipidemia Hyperparathyroidism [id number] Hyperuricemia Hypomagnesemia Nephrolithiasis Type 2 diabetes mellitus [...] stage 3, GFR 30-59 ml/min Hyperlipidemia Hyperparathyroidism [id number] Hyperuricemia Hypomagnesemia Nephrolithiasis Type 2 diabetes mellitus [...] stage 3, GFR 30-59 ml/min Hyperlipidemia Hyperparathyroidism [id number] Hyperuricemia Hypomagnesemia Nephrolithiasis Type 2 diabetes mellitus [...] stage 3, GFR 30-59 ml/min Hyperlipidemia Hyperparathyroidism [id number] Hyperuricemia Hypomagnesemia Nephrolithiasis Type 2 diabetes mellitus [...] Shoulder January 26, 2025 9:45am MRI RESULTS [facility] January 26, 2025 12:50pm Reason for [...] M75.101 January 23, 2025 12:43pm MRI RESULTS [facility] January 26, 2025 12:50pm Rotator cuff [...] M75.101 January 23, 2025 12:43pm MRI RESULTS [facility] January 26, 2025 12:50pm Rotator cuff [...] M75.101 January 23, 2025 12:43pm MRI RESULTS [facility] January 26, 2025 12:50pm Rotator cuff [...] M75.101 January 23, 2025 12:43pm MRI RESULTS [facility] January 26, 2025 12:50pm Rotator cuff [...] 9:03 am Sacroiliitis, not elsewhere classified [facility] 2024 9:03am Trochanteric bursitis June 21, 2025 [...] 2025 8:03a m Sacroiliitis, not elsewhere classified [facility] 2024 8:03am Trochanteric bursitis May 31, 2025 8:0 3am Chronic pain June 21, 2025 9:03 am Sacroiliitis, not elsewhere classified [facility] 2024 9:03am Trochanteric bursitis June 21, 2025 9: 03am Diabetic foot ulcer associat ed with type 2 diabetes mellitus, with fat laye July 12, 2025 7:36am MRSA bacteremia July 12, 2025 7: 36am Oral thrush July 12, 2025 7: 36am Additional Source Comments INFORMATION SOURCE (unrecogn ized section and content) DATE CREATED AUTHOR 07/28/2018 [facility] DATE CREATED AUTHOR AUTHOR'S ORGANIZ ATION 03/18/2022 [facility] DATE CREATED AUTHOR AUTHOR'S ORGANIZ ATION 10/17/2022 [facility] DATE CREATED AUTHOR AUTHOR'S ORGANIZ ATION 04/13/2023 [facility] DATE CREATED AUTHOR AUTHOR'S ORGANIZ ATION 05/08/2023 [facility] DATE CREATED AUTHOR AUTHOR'S ORGANIZ ATION 05/08/2023 [facility] DATE CREATED AUTHOR AUTHOR'S ORGANIZ ATION 02/23/2024 [facility] DATE CREATED AUTHOR AUTHOR'S ORGANIZ ATION 06/09/2025 [facility] DATE CREATED AUTHOR AUTHOR'S ORGANIZ ATION 07/29/2025 [facility] EPIC REASON FOR VISIT (unrecogniz ed section and content) ReasonCommentsFollow-nf1uYdviwfxpxIpfogmevf / ProceduresReferred By Contact Referred To ContactCardiology Diagnoses Coronary artery disease, unspecified vessel or lesion type, unspecified whether angina present, unspecified whether king salmon or transplanted heart Procedures Follow Up In Cardiology Rosalinda Torres MD [address] [facility] [address], [address] [address] Rosalinda Torres MD [address] [facility] [address], [address] [address] Referral IDStatusReasonStart DateExpiration DateVisits RequestedVisits [id number] Review/[id number]znei CommentsFollow-up[address] ChengionCOLONOSCOPY REPORTUpdate Kiosk DemographicsMED REFILL, INCREASED LT HIPPAINF/U BILAT SI JOINT AND R GREATER TROCH BURSA INJ/JMBILAT SI JOINT AND RIGHT TROCH BURSA INJ/JMMAIL PPWrefill- bpk to send rxF/U FROM APPT WITH DR Mosesased pain in lower backemployee DSMEpain, back4 month Follow uppap issuesSHINGRIX #2 // [facility] TRADITIONAL PLAN THROUGH SPOUSESHINGRIX #1 // [facility] TRADITIONAL PLAN THROUGH SPOUSEMODERNA BIVALENT BOOSTERAFLURIA FLU VACCINECKD and HTNreview labSLEEP LABhosp recheck/ discuss disability processDocumentationFYI/ updateDisability paperworkEmployee Program F/UCKDPt no show Employee Diabetes Ed program 4/8Clinicalneuropathy, chest pressure ,SOBfyirefillsneeds fmla, FACETIME [phone] Care Teams (unrecognized sec tion and content) [...] MemberRelationshipSpecialtyStart DateEnd Date Charan Casey DO [address] [facility] [address] [place] [address] PCP - GeneralFamily Medicine02/22/24 Rosalinda Torres MD [address] [facility] [address], [address] [address] Consulting PhysicianCardiology02/22/24 Team Status: Inactive Member Role [...] Team Status: Inactive Member Role Status Dates Chraan Casey DO Primary Care Provider Active Sta [...] 2024Team MemberRelationshipSpecialtyStart DateEnd Date Charan Casey MD [address] [place] [phone] PCP - General05/20/23 Moni Becker MD [address] [facility] [address] [place] [address] PCP - [facility]/11/2411Team MemberRelationshipSpecialtyStart DateEnd Date Charan Casey DO [facility] - [facility]/22/24 Rosalinda Torres MD [address] [place] [address] [address] [place] [address] Consulting PhysicianCardiology02/22/24 Team Status: Inactive Member Role [...] 2025Team MemberRelationshipSpecialtyStart DateEnd Date Charan Casey MD [address] [place] [phone] [facility]05/20/23 Team Status: Active Member Role Status Josafat Casey DO Primary Care Provider Active Sta rt: January 09, 2025 Matt Roe ProviderActiveStart: January 09, 2025 Team Status: Active Member Role Status Dates Charan Casey DO Primary Care Provider Active Sta rt: January 13, 2025 Jesús Ferimn ProviderActiveStart: January 13, 2025 Team Status: Inactive [...] Team Status: Inactive Member Role Status Dates Chraan Casey DO Primary Care Provider Active Sta [...] 2025Team MemberRelationshipSpecialtyStart DateEnd Date Charan Casey DO [address] [place] [phone] [facility]05/20/23 Team Status: Inactive Member Role Status Josafat [...] DateEnd Date Charan Casey DO [address] [place] [phone] PCP - General05/20/23Team MemberRelationshipSpecialtyStart DateEnd Date Charan Casey [place] [facility] [place] [address] PCP - General05/20/23 Goals (unrecognized section and [...] BE BASED ON THE PRIMARY CLINICAL RECORDS. [facility] [employer] provides no warranty or guarantee of the accuracy or completeness of information in this document.
== END 2025-09-28 13:06 | disposition home or self-care (01) ==
LOC: WC 13:05
PROVIDERS: PCP Family Medicine; Visit Provider Physician Assistant
DX: E11.621 Type 2 diabetes mellitus with foot ulcer (principal); L97.423 Non-pressure chronic ulcer of left heel and midfoot with necrosis of muscle
CPT/HCPCS: 11043; 29445

== ENCOUNTER 2025-10-04 09:38 | Outpatient (OUT) | payer MEDICARE, SELFPAY ==
--- OUTSIDE RECORDS SUMMARY | 2025-07-12 04:00 | XMS_ITS ---
Author Organization [facility] in [place] Address [address] [place] [address] Care Team Providers Care Mobile Sales Assistant Name Role Phone Charan Delgadillo DO Primary Care Provider Torres Cid [facility] [phone] REASON FOR VISIT 1 year f/u Encounters Encounter Location Date Provider Diagnosis [facility] (PODIATRY) [address] [place] [address] [address] [place] [address] 07/12/2025 Torres Fernandez Plan Of Treatment No Information Progress Notes * JORDYN JoyDOB:1960 (64 yo F)Acc No.[id number]:07/12/2025 UNLOCKED PROGRESS NOTE Follow Up Patient: Joy CHAVEZ :?Torres Fernandez DPM, MSDOB:1960???Age: 64 Y???Sex:FemaleDate:07/12/2025Phone:[phone]:[address], [place]-[address]Qxl:Charan Delgadillo DO Subjective: * Chief Complaints: * 1 . 1 year f/u. * Medical History: Objective: * Vitals: Assessment: Plan: * Treatment: * * Electronic signature of Torres Fernandez DPM on 10/04/2025 at 09:41 AM ESTSign off status: PendingVisit Status:?OFF CANC (OFFICE CANCEL) * Provider: Dani Fernandez DPM, MS Date: 0 07/12/2025 Generated for Printing/Faxing/eTransmitting on:?10/04/2025 09:41 AM EST
--- OUTSIDE RECORDS SUMMARY | 2025-10-04 09:41 | XMS_ITS | Clinical Summary ---
Author Organization [facility] Address [address] [place] [address] Phone Care Team Providers Care Wax Machine Operator Name Role Phone Charan Delgadillo DO Primary Care Provider [phone] Rosalinda Cordova MD Unavailable [phone] Allergies Active AllergyReactionsCriticalityNoted DateCommentsErythromycin Base Nausea/tjdcufax85/05/2024LevofloxacinNausea/suaabsbaIosh81/25/2024 Head ache Medications MedicationSigDispense QuantityRefillsLast FilledStart DateEnd DateStatus allopurinol (Zyloprim) 100 mg tablet Take 1 tablet (100 mg) by mouth once daily.02/07/2022ctive ascorbic acid (Vitamin C) 1,000 mg tablet Take 1 tablet (1,000 mg) by mouth once daily.Active aspirin 81 mg EC tablet Take 1 tablet (81 mg) by mouth once daily.Active ergocalciferol (Vitamin D-2) 1.25 MG (45738 UT) capsule Take 1 capsule (50,000 Units) [...] 10 mg tablet Indications:Atherosclerotic heart disease of [place] coronary artery without angina pectorisTake 1 tablet (10 mg) by mouth 3 (three) times a week. 36 tablet 12:43 PM EDT1415Active Active Problems ProblemNoted DateDiagnosed DateClass 2 obesity with body mass index (BMI) of 37.0 to 37.9 in adult02/22/2024AD (coronary artery disease)12/04/2023Elevated coronary artery calcium score12/04/2023iabetes grwwogdg59/05/2024Essential cojomdftgiwf47/05/7436Cqixrrobwmfgtb39/05/2024Obstructive sleep apnea syndrome 12/04/2023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12/04/2023 Immunizations ImmunizationAdministration DatesNext DueInfluenza, seasonal, injectable 10/16/2022Moderna SARS-CoV-2 Usghegrhcsu55/17/2022neumococcal conjugate vaccine, 13-valent (PREVNAR 13)12/02/2016Pneumococcal polysaccharide vaccine, 23-valent, age 2 years and older (PNEUMOVAX 23)11/30/2016,10/15/2016 Family History Medical HistoryRelationNameCommentsCABGFatherRelationNameStatusCommentsFather Social History Tobacco UseTypesPacks/DayYears UsedDateSmoking Tobacco: NeverSmokeless Tobacco: Never Tobacco Cessation:Counseling Given: Not Answered Alcohol UseStandard Drinks/WeekCommentsNever0 (1 standard drink = 0.6 oz pure alcohol)CommentsUnknownSex and Gender InformationValueDate RecordedSex Assigned at BirthNot on fileLegal MeqLjchtc64/26/2022 10:20 AM ESTGender IdentityNot on fileSexual OrientationNot on file Last Filed Vital Signs Vital SignReadingTime TakenCommentsBlood Ycppomwo587/80008/25/2024 8:35 AM EDT Xdcui0524/26/2024 8:35 AM EDTTemperature--Respiratory Rate--Oxygen Saturation-- Inhaled Oxygen Concentration--Ngcqrb393 kg (241 lb)08/25/2024 8:35 AM EDTHeight 170.2 cm (5' 7 )08/25/2024 8:35 AM EDTBody Mass Index37.75008/25/2024 8:35 AM EDT Plan of Treatment DateTypeDepartmentCare Team (Latest Contact Info)Rkoyhdfadbz24/05/2025 2:30 PM ESTOffice Visit [facility] [address] [phone] Rosalinda Cordova MD [address] [facility] [address], [facility] [address] [place] [address] Health MaintenanceDue DateLast DoneCommentsCT Qzrhpqiysyuj1960Diabetes: Hemoglobin A1C1960Diabetes: Urine Protein Hlhvucbxs1960FIT-DNA (Cologuard)1960FIT1960HIV Peehukfyx1960Lipid Panel1960 Medicare Annual Wellness Visit (AWV)1960 9354Gbcubeayzhafk1960MMR Vaccines (1 of 1 - Standard series)1Diabetes: Retinopathy Screening 1970Hepatitis C Lnhukdukb44/03/1978Cervical Cancer Kdihphbat60/03/1981 HPV/Pdtesm8711/01/1981Pap Smear11/01/19812740Qncuzmdho30/03/2000RSV High Risk: (Elderly (60+) or Population) (1 - Risk 50-74 years 1-dose series) 2010Pneumococcal Vaccine (3 of 3 - PCV20 or PCV21)/01/2017, 11/30/2016, 10/15/2016DTaP/Tdap/Td Vaccines (2 - Td or Tdap) Influenza Vaccine (#1)/, 08/30/2021, 08/30/2019, Additional history existsCOVID-19 Vaccine ( season)/, 10/16/2022, 09/25/2021, Additional history zlatlbEwveoelcfgg64/07/203311/05/2023 Colorectal Cancer Lnrkdusxo59/07/2033Zoster SgcfiecuOpntpjeoc55/28/2023, 10/28/2022HIB VaccinesAged OutNo longer eligible based on [...] - GeneralFamily Medicine02/22/24 Rosalinda Cordova MD [address] [facility] 2, [facility] [address] [place] [address] Consulting PhysicianCardiology02/22/24
--- OUTSIDE RECORDS SUMMARY | 2025-10-04 09:41 | XMS_ITS | Clinical Summary ---
Author Organization [facility] Address [address] [place], [place] [address] Care Team Providers Care Tennis Net Maker Name Role Phone Charan Delgadillo DO Primary Care Provider [phone] Allergies Active AllergyReactionsCriticalityNoted DateCommentsErythromycinGI Upset 11/12/2012 Medications [...] Date RecordedSex Assigned at BirthNot on fileLegal QtfKuwbcg27/02/2012 8:57 AM ESTGender IdentityNot on fileSexual OrientationNot on file Last Filed Vital Signs Vital SignReadingTime TakenCommentsBlood Ucebnrlc832/72012/23/2012 1:14 PM EST Ryijf892812/23/2012 1:14 PM ZIDQckxeykejpe45.7 ??C (98.1 ??F)12/08/2012 6:43 AM ESTRespiratory Ifwo490912/08/2012 6:43 AM ESTOxygen Qmplulcaxc27%12/08/2012 6:43 AM ESTInhaled Oxygen Concentration--Kkkkmo45 kg (216 lb 1.6 oz)12/23/2012 1:14 PM ZTNImscgb114.2 cm (5' 7 )11/29/2012 10:21 AM ESTBody Mass Index33.85 11/29/2012 10:21 AM EST Plan of Treatment Health MaintenanceDue DateLast DoneCommentsAnxiety Fyjdjrgci45/03/1978Depression Jufnwywuo31/03/1978HIV Pgcjgssxx28/03/1978Hepatitis C Soyduddqe89/03/1978 DTaP,Tdap,Td Vaccine (1 - Tdap)1979Cervical Cancer Nlxwhsqsi57/03/1981 Mammogram Onftyjpaq96/03/2000CT Cnyuudhoadpb20/03/2005Cologuard (FIT-DNA) 11/01/20053327Nuybjmsjyjz46/03/2005Colorectal Cancer Wsntxnkmt76/03/2005Fecal Occult Blood2005Lipid Gppkfokqw65/03/7554Xhcxpxweltrza32/03/2005Pneumococcal Vaccine: 50+ (1 of 1 - PCV)2010Shingrix Vaccine (1 of 2)2010Diabetes Mpxknggkj59Covid-19 Vaccine (1 - 2024- season)2025 Influenza Vaccine (#1)2025RSV Vaccine (1 - 1-dose 75+ series)2035 Procedures Procedure NamePriorityDate/TimeAssociated DiagnosisCommentsBASIC METABOLIC PANEL Kthgjgx8611/29/2012 10:11 AM EST Hyperparathyroidism, unspecified Preoperative examination, unspecified from Last 3 Months or Most Recently Relevant to Health Maintenance Results * (ABNORMAL) BASIC METABOLIC PNL (11/29/2012 10:11 AM EST)ComponentValueRef RangeTest MethodAnalysis TimePerformed AtPathologist JpxtmwpmdLyaupkz858(H)65 - 100 mg/dLW[facility] SUFBKRYDPFIOL101 - 25 mg/dLWAYNE HOSPITAL LABORATORYCreatinine0.780.70 - 1.40 mg/dLWAYNE HOSPITAL LABORATORY Uxnwyt248409 - 148 mmol/LCW[facility] LABORATORYPotassium4.43.5 - 5.0 mmol/LCUNIVERSITY [facility] MAIN YCRAVAYMEAVirsknou75(L)98 - 110 mmol/LCWAY[facility] UKZERHTVAAQS91468 - 32 mmol/LCWAYNE [facility] LABORATORYAnion Gap16(H)0 - 15 mmol/LCWAYNE [facility]ALTHCARE [facility]IN [facility]AMP[facility] QIBMHSVYAGSqgjgcj32.4(H)8.5 - 10.5 mg/dLWAYNE HOSPITAL LABORATORYeGFR->60[facility] LABORATORYeGFR-All Other Races>60.[facility] Comment: eGFR (Estimated GFR) Units [...] Dexter LUKELABORATORYFinal Result Performing OrganizationAddressCity/State/ZIP CodePhone Number [facility] [address] [place] [address] from Last 3 Months or Most Recently Relevant to Health Maintenance Insurance Care Teams Team MemberRelationshipSpecialtyStart DateEnd Date Charan Delgadillo DO [address] [place] [address] PCP - GeneralFamily Dgciixje52/10/12
--- OUTSIDE RECORDS SUMMARY | 2025-10-04 09:41 | XMS_ITS | Clinical Summary ---
Author Organization [facility] Address [address] [facility] [place] [address] Care Team Providers Care Manager Supply Name Role Phone Brysonbryn Charan Dani BASSETT Primary Care Provider [phone] Allergies Active AllergyReactionsCriticalityNoted DateCommentsErythromycinUnknown 05/15/2025Erythromycin BaseNausea Only05/19/2023LevofloxacinGI [...] MOUTH ONCE DAILY ON mondays, wednesdays, AND ihcejet3311/12/2022 Active pregabalin (Lyrica) 150 MG capsule Take 150 mg by mouth at bedtimeActive Continuous Blood Gluc Cra Officer (Dexcom G7 Cra Officer) device USE WFEDBWQN24/17/2023ctive Continuous Blood Gluc Sensor (Dexcom G7 Sensor) [...] macular edema, with long-term current use of qxjrcuw0804/21/2024Type 2 diabetes mellitus with peripheral nlyylwlbyb10/13/2023 Assessment & Plan (07/27/2025 9:29 AM EDT): [...] 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 /13/2023 Assessment & Plan (02/11/2024 9:19 PM EDT): [...] Long-term insulin use10/12/2023Spondylolisthesis at L3-L4 level10/12/2023S/P laparoscopic odoujzwergrovmv20/13/2023Other hammer toe(s) (acquired), left foot 10/12/2023lass 2 severe obesity with serious comorbidity and body mass index (BMI) of 35.0 to 35.9 in adult10/12/2023arpal tunnel syndrome of right wrist 01/27/2020Chronic foot ulcer04/13/2018 Encounters DateTypeDepartmentCare GcmoLvrhaqbzdqv95/27/2025Abstract [facility] [address] [place] [address] Luisito Seymour, DPM 09/25/2025bstract [facility] [address] [place] [address] Luisito Seymour, DPM 08/15/2025Refill [facility] [address] [place] [address] Monica Tee LPN Type 2 diabetes mellitus with peripheral neuropathy (HCC)07/27/2025 8:15 AM EDT Office Visit [facility] [address] [facility] [place] [address] Shaina Figueroa, DO Type 2 diabetes mellitus [...] index (BMI) of35.0 to 35.9 in adult ([facility])07/27/2025amboo flowsheet [facility] [address] [facility] [place] [address] Shaina Figueroa DO 07/27/20250417Rfmqzd54/27/8919Jkteyv14/25/2025Refill [facility] [address] [facility] [address] [place] [address] Kimberley Finn LPN Type 2 diabetes mellitus with peripheral neuropathy (HCC)07/18/2025Telephone [facility] [address] [facility] [address] [place] [address] Nancy Henriquez MA Home Health Carefrom Last 3 Months Immunizations ImmunizationAdministration DatesNext DueInfluenza, High Dose Seasonal, Preservative Free10/16/2022Influenza, injectable, quadrivalent, preservative free08/30/2019Influenza, seasonal, ejpcruweif2019,08/30/2018Influenza, seasonal, injectable, preservative free08/30/2018,12/02/2016Influenza, seasonal, intradermal, preservative free08/30/2021Moderna SARS-CoV-2 Booster Vaccination 09/25/2021Moderna SARS-CoV-2 Hpudbmxbrlp85/28/2021neumococcal Conjugate PCV 13 12/02/2016Pneumococcal Polysaccharide YFJN4505/11/2016,10/15/2016Zoster, Cmgecugkimh88/28/2023,10/28/2022 Family History Medical HistoryRelationNameCommentsDiabetesBrotherNo Known ProblemsDaughter Atrial fibrillationFatherCoronary artery diseaseFatherDementiaFatherHeart diseaseFatherHypertensionFatherParkinsonismFatherSleep apneaFatherAsthmaMother HypertensionMotherSleep apneaMotherDiabetesPaternal GrandfatherDiabetesPaternal GrandmotherDiabetesSiblingHypertensionSonRelationNameStatusCommentsBrotherAlive2 ChildAlive2 sons 1 daughterDaughterAliveFatherDeceasedMotherAlivePaternal GrandfatherDeceasedPaternal GrandmotherDeceasedSiblingAlive2 brothersSonAlive2 Social History Tobacco UseTypesPacks/DayYears UsedDateSmoking Tobacco: NeverSmokeless Tobacco: Never Tobacco Cessation:Counseling Given: Not Answered Alcohol UseStandard Drinks/WeekCommentsNever0 (1 standard drink = 0.6 oz pure alcohol)caffeine: 1-2 cups per day qcwyepI4386 Health LiteracyAnswerDate RecordedHow often do you need [...] relatives?Once a week07/26/2025How often do you attend mosque or mormonism services?More than 4 times per year07/26/2025Do you belong to any clubs or organizations such as mosque groups, unions, fraDivided or athletic groups, or school groups?No07/26/2025How often [...] at all 07/26/2025PHQ-2AnswerDate RecordedPatient Health Questionnaire-2 Score0 05/15/2025[facility] [place] [facility] Occup[facility] - Occupational Stress QuestionnaireAnswerDate RecordedDo you feel stress - tense, restless, nervous, or anxious, or unable to sleep at night because yourmind is troubled all the time - these days?To some olsecc6202/08/2024Exercise Vital SignAnswerDate Recorded On average, how many days per week do you engage in moderate to strenuous exercise (like a brisk walk)?Patient rwiphkvt77/11/2024On average, how many minutes do you engage in exercise at this level?Patient onutsihf63/11/2024Hunger Vital SignAnswerDate RecordedWithin the past 12 months, [...] steady place to sleep or slept in [place] (including now)?No 02/08/2024Housing Stability Vital SignAnswerDate RecordedIn the last 12 months, was there a time when you were not able to pay the mortgage or rent on time?No 07/26/2025In the past 12 months, how many times have you moved where you were living?t any time in the past 12 months, were you homeless or living in a residential (including now)?No07/26/2025CommentsUnknownSex and Gender InformationValueDate RecordedSex Assigned at LtfhtWnwkoe96/21/2023 8:32 AM EDT Legal SkbTfwqgv84/15/2023 7:19 PM EDTGender WgbqbjwrYabbxm00/21/2023 8:32 AM EDT Sexual OrientationNot on file Last Filed Vital Signs Vital SignReadingTime TakenCommentsBlood Tymvoaja527/6208 8:13 AM EDT Oebtx865907/27/2025 8:13 AM NFCCfkpaltkknu37.4 ??C (97.5 ??F)07/27/2025 8:13 AM EDTRespiratory Rate--Oxygen Gvpymcrrzk57%07/27/2025 8:13 AM EDTInhaled Oxygen Concentration--Ltdbvi205 kg (222 lb 3.2 oz)05/15/2025 10:29 AM YIRFrwwrg891.6 cm (5' 6 )07/27/2025 8:13 AM EDTBody Mass Index35.8605/15/2025 10:29 AM EDT Plan of Treatment DateTypeDepartmentCare Team (Latest Contact Info)Sluninwriuf89/25/2025 10:30 AM ESTOffice Visit [facility] [address] [facility] [address] [place] [address] Shaina Figueroa, [address] [facility] [address] [place] [address] Health MaintenanceDue DateLast DoneCommentsCT Cvqnegmknlow1960Colonoscopy 1960Colorectal Cancer Vpqjdcucd1960FIT-DNA1960FIT1960 FOBT1960 7793Fklyezkfkdark1960Pap Smear1981Cervical Cancer Mdhdncnhd41/03/1990HPV/Dqntlb2811/01/19902073Tkcyfqrta54/03/2000COVID-19 Vaccine ( season), 10/16/2022, 09/26/2021, Additional history existsInfluenza Vaccine (#1)/, 08/30/2021, 08/30/2019, Additional history existsPneumococcal Vaccine: Pediatrics (0 to 5 Years) and At- Risk Patients (6 to 64 Years)Aged Out12/02/2016, 11/30/2016, 10/15/2016No longer eligible based on patient's age to complete this topic Insurance * Guarantor: Joy Asher TypeRelation to PatientDate of BirthPhone Billing AddressPersonal/YktxtxZjtt1960 [facility] [place] [address] Care Teams Team MemberRelationshipSpecialtyStart DateEnd Date Charan Delgadillo DO [address] [place] [address] PCP - General05/20/23
--- OUTSIDE RECORDS SUMMARY | 2025-10-04 09:41 | XMS_ITS | Encounter Summary ---
Author Organization [facility] Address [address] [facility] [place] [address] Care Team Providers Care Assistant To The Ceo Name Role Phone BrysonCharan clemente Dani BASSETT Primary Care Provider Encounter Details DateTypeDepartmentCare Team (Latest Contact Info)Jiwsubdtcyi19/27/2025bstract [facility] [address] [facility] [address] [place] [address] Luisito Seymour DPM [address] [facility] [address] [place] [address] Social History Tobacco UseTypesPacks/DayYears UsedDateSmoking Tobacco: NeverSmokeless Tobacco: NeverAlcohol UseStandard Drinks/WeekCommentsNever0 (1 standard drink = 0.6 oz pure alcohol)caffeine: 1-2 cups per day kokpdmL4899 Health LiteracyAnswerDate RecordedHow often do you need [...] relatives?Once a week07/26/2025How often do you attend religion or yazidism services?More than 4 times per year07/26/2025Do you belong to any clubs or organizations such as religion groups, unions, fraBatesHook or athletic groups, or school groups?No07/26/2025How often [...] at all 07/26/2025PHQ-2AnswerDate RecordedPatient Health Questionnaire-2 Score0 05/15/2025[facility] [place] of Occupational Health - Occupational Stress QuestionnaireAnswerDate RecordedDo you feel stress - tense, restless, nervous, or anxious, or unable to sleep at night because yourmind is troubled all the time - these days?To some czbnin6702/08/2024Exercise Vital SignAnswerDate Recorded On average, how many days per week do you engage in moderate to strenuous exercise (like a brisk walk)?Patient pctqyngm48/11/2024On average, how many minutes do you engage in exercise at this level?Patient cdvycxng92/11/2024Hunger Vital SignAnswerDate RecordedWithin the past 12 months, [...] steady place to sleep or slept in [facility] (including now)?No 02/08/2024Housing Stability Vital SignAnswerDate RecordedIn the last 12 months, was there a time when you were not able to pay the mortgage or rent on time?No 07/26/2025In the past 12 months, how many times have you moved where you were living?t any time in the past 12 months, were you homeless or living in a half-way (including now)?No07/26/2025CommentsUnknownSex and Gender InformationValueDate RecordedSex Assigned at WglmbPnidli07/21/2023 8:32 AM EDT Legal EakSeuhcm61/15/2023 7:19 PM EDTGender RxzsvvjgBojprv64/21/2023 8:32 AM EDT Sexual OrientationNot on filedocumented as of this encounter Plan of Treatment DateTypeDepartmentCare Team (Latest Contact Info)Qlpkababcpd05/25/2025 10:30 AM ESTOffice Visit [facility] [address] [place] [address] Shaina Figueroa, DO [address] [place] [address] documented as of this encounter Visit Diagnoses Not on filedocumented in this encounter Care Teams Team MemberRelationshipSpecialtyStart DateEnd Date Charan Delgadillo DO [address] [place] [address] PCP - General05/20/23documented as of this encounter
--- OUTSIDE RECORDS SUMMARY | 2025-10-04 09:41 | XMS_ITS | Patient Health Record ---
Author Organization [facility] [place] Address [address] [place] [address] Care Team Providers Care Feeder Operator Name Role Phone Charan Delgadillo DO Primary Care Provider Torres Cid [phone] Allergies Allergen (clinical drug ingredient) Drug/Non Drug Allergy documented on EMR Reaction Allergy Type Onset Date Status erythromycin Erythromycin Unknown Drug Allergy Active Reason For Referral No Information Medications Medication SIG (Take, Route, Frequency, Duration) Notes Start Date End Date Status Lyrica 150 MG 1 capsule Orally Once a day ActiveAllopurinol 100 MG1 tablet Orally Once a day; Duration: 30 day(s)Active Metoprolol Succinate 200 MG1 capsule Orally Once a day; Duration: 30 day(s) ActiveMag Glycinate 100 MGas directed OrallyActiveFosamax 70 MG1 tablet 30 minutes before the first food, beverage or medicine of the day with plain water Orally;Duration: 30 day(s)ActiveEster-C -as directed OrallyActiveLyrica 300 MG1 capsule in the evening 1 to 3 hours before bedtime Orally Once a dayActive HumaLOG KwikPen 100 UNIT/MLas directed SubcutaneousActiveBenicar 40 MG1 tablet Orally Once a day; Duration: 30 day(s)ActiveVitamin D3 50 MCG (2000 UT)1 capsule Orally Once a day; Duration: 90 days06/10/2023ctiveAspirin 81 MG1 tablet Orally Once a day; Duration: 30 day(s)ActiveOmega 3 1000 MG1 capsule Orally Once a day; Duration: 30 day(s)ActiveBrilinta 90 MG1 tablet Orally Twice a day; Duration: 30 day(s)Active Social History Tobacco Use: Social History Observation [...] Risk Notes Problem Foot ulcer due to ty pe 2 diabetes mellitus (7477670330827) 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.621) ActiveconfirmedProblemIngrowing nail (351468647)Ingrowing nail (L60.0)Active confirmedProblemChronic ulcer of foot (186895094)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)ActiveconfirmedProblemNon- pressure chronic ulcer of other part of left foot limited to breakdown of skin (L97.521)ActiveconfirmedProblemArthropathy associated with a neurological disorder (59014197)Charcot's joint, right ankle and foot (M14.671)Active confirmedProblemLocalized, primary osteoarthritis of the ankle and/or foot (701862715)Primary osteoarthritis, left ankle and foot (M19.072)Activeconfirmed ProblemAcquired hammer toe of left foot (5467635645165459)Other hammer toe(s) (acquired), left foot (M20.42)ActiveconfirmedProblemDeformity of lower leg (627240609)Other specified acquired deformities of right lower leg (M21.861) ActiveconfirmedProblemArthralgia of the ankle and/or foot (105157354)Pain in right ankle and joints of right foot (M25.571)ActiveconfirmedProblemArthralgia of the ankle and/or foot (315770557)Pain in left ankle and joints of left foot (M25.572)ActiveconfirmedProblemPain in right foot (151863610862990)Pain in right foot (M79.671)ActiveconfirmedProblemPain in left foot (028881967751926)Pain in left foot (M79.672)ActiveconfirmedProblemPseudarthrosis after fusion or arthrodesis (712968926)Pseudarthrosis after fusion or arthrodesis (M96.0)Active confirmedProblemPain associated with internal prosthetic device (disorder) (826700924)Pain due to internal orthopedic prosthetic devices, implants and grafts, initial encounter (T84.84XA)ActiveconfirmedProblemHypertension (68662863)HTN (hypertension) (I10)ActiveconfirmedProblemDiabetic nephropathy (119517063)Diabetic nephropathy (E11.21)ActiveconfirmedProblemHeart disease (93915242)Heart disease (I51.9)ActiveconfirmedProblemChronic ulcer of foot (514967933)Non-pressure chronic ulcer of left heel and midfoot with necrosis of muscle (L97.423)ActiveconfirmedProblemArthropathy associated with a neurological disorder (73239262)Charcot's joint of left foot (M14.672)ActiveconfirmedProblem Dehiscence of surgical wound (disorder) (95497540)Postoperative wound dehiscence, subsequent encounter (T81.31XD)ActiveconfirmedProblemNon-pressure chronic ulcer of left heel and midfoot limited to breakdown of skin (L97.421) ActiveconfirmedProblemHypercholesterolemia (87002452)Hypercholesterolemia (E78.00)ActiveconfirmedProblemArthropathy associated with a neurological disorder (26653344)Charcot's joint of right foot (M14.671)ActiveconfirmedProblem Acquired abduction deformity of left foot (M21.6X2)ActiveconfirmedProblem Diabetes mellitus (60037332)Diabetes mellitus (E11.9)Activeconfirmed Plan Of Treatment Pending Test Test Name Order Date POINT OF CARE GLUCOSE 04/13/2023 PROF CHEM 8 (BAS METB) 03/31/2023 XR foot LAURA min 3V 06/22/2024 Insurance Providers Payer Name Payer Address Payer Phone Subscriber Number Group Number Insured Name Patient Relationship to Insured Coverage Start Date Coverage End Date O [address] [place], [place] [id number] Joy Asher Self - patient is the [...] Surgical History Surgery Date(Month/Year) Parathyroidectomy Cervical Spine FusionLumbar Spine FusionLT Ankle exploration/bx Dr SeymourQdysxk1852 Heart Ynvwkz6903/27/2022LT midfoot fustion with corrective osteotomy, talonavicular/subtaler joint fustions, harvest of distal tibial bone graft, gastrocnemius recession/exostectomy Dr Fernandez12/29/2022removal deep implanted hardware left foot04/13/2023ack injectionsHospitalization History Reason Date(Month/Year) see above
--- OUTSIDE RECORDS SUMMARY | 2025-10-04 09:41 | XMS_ITS | Encounter Summary ---
Author Organization [facility] Address [address] [place] [address] Care Team Providers Care Rn Medicare Name Role Phone BrysonCharan clemente Dani BASSETT Primary Care Provider [phone] Encounter Details DateTypeDepartmentCare Team (Latest Contact Info)Erjbchnysxh90/27/2025bstract [facility] [address] [facility] [address] [place] [address] Luisito Seymour DPM [address] [facility] [address] [place] [address] Social History Tobacco UseTypesPacks/DayYears UsedDateSmoking Tobacco: NeverSmokeless Tobacco: NeverAlcohol UseStandard Drinks/WeekCommentsNever0 (1 standard drink = 0.6 oz pure alcohol)caffeine: 1-2 cups per day tavngzZ9410 Health LiteracyAnswerDate RecordedHow often do you need [...] relatives?Once a week07/26/2025How often do you attend judaism or confucianist services?More than 4 times per year07/26/2025Do you belong to any clubs or organizations such as judaism groups, unions, fraImagineOptix or athletic groups, or school groups?No07/26/2025How often [...] at all 07/26/2025PHQ-2AnswerDate RecordedPatient Health Questionnaire-2 Score0 05/15/2025[facility] [place] [facility] Occupational Health - Occupational Stress QuestionnaireAnswerDate RecordedDo you feel stress - tense, restless, nervous, or anxious, or unable to sleep at night because yourmind is troubled all the time - these days?To some klrxrk0302/08/2024Exercise Vital SignAnswerDate Recorded On average, how many days per week do you engage in moderate to strenuous exercise (like a brisk walk)?Patient gakkrnak91/11/2024On average, how many minutes do you engage in exercise at this level?Patient ylyjlwwx16/11/2024Hunger Vital SignAnswerDate RecordedWithin the past 12 months, [...] steady place to sleep or slept in [facility] (including now)?No 02/08/2024Housing Stability Vital SignAnswerDate RecordedIn the last 12 months, was there a time when you were not able to pay the mortgage or rent on time?No 07/26/2025In the past 12 months, how many times have you moved where you were living?t any time in the past 12 months, were you homeless or living in a penitentiary (including now)?No07/26/2025CommentsUnknownSex and Gender InformationValueDate RecordedSex Assigned at HnhtsVsvvpo47/21/2023 8:32 AM EDT Legal RmjPehqrn98/15/2023 7:19 PM EDTGender CxabxjstOrihim70/21/2023 8:32 AM EDT Sexual OrientationNot on filedocumented as of this encounter Plan of Treatment DateTypeDepartmentCare Team (Latest Contact Info)Xtxrlzehqen82/25/2025 10:30 AM ESTOffice Visit [facility] [address] [place] [address] Shaina Figueroa, DO [address] [place] [address] documented as of this encounter Visit Diagnoses Not on filedocumented in this encounter Care Teams Team MemberRelationshipSpecialtyStart DateEnd Date Charan Delgadillo DO [address] [place] [address] PCP - General05/20/23documented as of this encounter
--- OUTSIDE RECORDS SUMMARY | 2025-10-04 09:51 | XMS_ITS | CCD ---
Author Organization [facility] Care Team Providers Care Transmitter Tester Name Role Phone Charan Casey Unavailable Unavailable [...] Provider DO Charan Casey Primary Care Provider [phone] Eliud Rod Unavailable DO Charan Casey Primary Care Provider TIMOTEO Watts Attending Provider DO Charan Casey Primary Care Provider TIMOTEO Watts Attending Provider [phone] MD Federico Sepulveda Attending Provider [phone] MD Elpidio Whipple Attending Provider ACSOTA CASTRO Consulting Unavailable DR YEISON CASEYAN Primary Care Unavailable MATTHEW, ACOSTA Scott Attending Unavailable HIGHLMISAEL, ACOSTA Scott Admitting Unavailable SAQIB DECKER Consulting Unavailable DIEGO ., MONICA MCAMHON Consulting Unavailable JEMIMA LABOY Consulting Unavailable QUIRINO [...] Scott Consulting Unavailable WESTBRODERICK V Consulting Unavailable [facility] DR HAIDER Primary Care Unavailable HIGHLANDER, ACOSTA Scott Attending Unavailable HIGHLMISAEL, ACOSTA Scott Admitting Unavailable HIGHLANDER, ACOSTA Scott Consulting Unavailable BLANKA OLGUIN Consulting Unavailable JACINTO, DR MANCINI Primary Care Unavailable ZOE, REID Attending Unavailable ZOE, REID Admitting Unavailable ZOE, REID Consulting Unavailable WESTBRODERICK V Consulting Unavailable JACINTO, DR MANCINI Primary Care Unavailable ZOE, REID Attending Unavailable ZOE, ERID Admitting Unavailable ZOE, REID Consulting Unavailable WESTBRODERICK [...] Unavailable Kuns, DO Charan Primary Care Provider [phone] Kuns, DO Charan Attending Provider Kuns, DO Charan Primary Care Provider MD Blas Ortiz Attending Provider Kuns, DO Charan Primary Care Provider Kuns, DO Charan Attending Provider MD Thierno Chatterjee Attending Provider Yasmeen Treadwell Unavailable Kuns, DO Charan Primary Care Provider [phone] MD Blas Ortiz Attending Provider MD Elpidio Whipple Attending Provider Kuns, DO Charan Primary Care Provider MD Thierno Chatterjee Attending Provider MD Blas Ortiz Attending Provider [phone] MD Elpidio Whipple Attending Provider MD Yasmeen Treadwell Attending Provider [phone] Blas Bellamy Unavailable Kuns, DO Charan Primary Care Provider MD Blas Ortiz Attending Provider [phone] Kuns, DO Charan Attending Provider Kuns, DO Charan Primary Care Provider Kuns, DO Charan Primary Care Provider Kuns Charan BASSETT Primary Care Provider [phone] Rosalinda Torres MD Unavailable ROSALINDA TORRES Attending Unavailable CHARAN CASEY MINOR Primary Care Unavailable Kuns, DO Charan Primary Care Provider [phone] Kuns, DO Charan Attending Provider [phone] MD Blas Ortiz Attending Provider [phone] Kuns, DO Charan Primary Care Provider Kuns, DO Charan Attending Provider Kuns, DO Charan Primary Care Provider Kuns, DO Charan Primary Care Provider MD Blas Ortiz Attending Provider [phone] Kuns, DO Charan Primary Care Provider [phone] ROSS Castro Attending Provider [phone] Self, Referral Attending Provider Unavailable MD Blas Ortiz Attending Provider [phone] Kuns DO, Charan Primary Care Provider [phone] Acosta Castro DPM Attending Provider [phone] Self, Referral Attending Provider Unavailable Blas Ortiz MD Attending Provider Charan Casey MD Primary Care Provider Moni Becker MD Unavailable Kunbryn BASSETT, Charan P Primary Care Provider [phone] Kuns DO, Charan Primary Care Provider Nader Curry DO Attending Provider KunCharan clemente DO Attending Provider [phone] Kuns DO, Charan Primary Care Provider Blas Ortiz MD Attending Provider [phone] Kuns Charan BASSETT Primary Care Provider [phone] Nader Curry DO Attending Provider [phone] Nader Curry DO Attending Provider [phone] Jacinto BASSETT, Charan Primary Care Provider Charan Casey DO Attending Provider Nader Curry DO Attending Provider Jacinto DO, Charan Primary Care Provider Jacinto DO, Charan P Primary Care Provider Kuns DO, Charan Primary Care Provider Brysons DO, Charan Attending Provider Blas Ortiz MD Attending Provider [phone] Jacinto DO, Charan [facility] Acosta HAWKINS Attending Provider Blas Ortiz Admitting Unavailable Blas [...] Attending Provider Karla Lyons MD Attending Provider [phone] Charan Casey DO Attending Provider SHAINA MUNROE Attending Unavailable SHAINA MUNROE Attending Unavailable SHAINA MUNROE Attending Unavailable CHARAN CASEY Referring Unavailable SHAINA MUNROE Attending Unavailable Allergies Allergy ClassificationReported Allergen(s)Allergy TypeDate of OnsetReaction(s) FacilityLincosamides (antibiotic) (1 source)ClindamycinDrug Agczemk31-45-7235jhswSamaritan HospitalQuinolones (antibiotic) (1 source)levoFLOXacinDrug Oxmdkwv49-84-8685egpphqfeyqjrSkjksayka Regional Medical Center (20 sources)Erythromycin; Translations: [Erythromycin Base TABS]Drug Allergy 90-53-4866ifjfwm, Nausea/vomiting, UnknownOhio [facility] (20 sources)ClindamycinDrug Lefweve04-80-2118oiyy med - rashHolzer Hospital (20 sources)arzithomycinPropensity to adverse krzaarfmg68-38-3907opcqlmnUniversity Hospitals Geneva [facility] (20 sources)erythromycin base; Translations: [Erythromycin Base]Propensity to adverse gzrjywvbv94-49-0791Oqmmxq OnlyHolzer Hospital (2 sources)levoFLOXacinDrug AllergyhypoglycemiaNobates county memorial hospital [employer] Other (20 sources)levoFLOXacin; Translations: [LEVOFLOXACIN]Drug Fcvyepz17-87-8958 Nausea/vomiting, GI intoleranceHolzer Hospital Medications Current Medications MedicationDrug Class(es)DatesSig (Normalized)Sig (Original)allopurinol 100 mg oral tablet (20 sources)Xanthine Oxidase InhibitorStart: 06-15-2020 End: 31-99-9124pzwo 1 tablet by mouth in the morningallopurinol [...] sources)Platelet Aggregation Inhibitor, Nonsteroidal Anti-inflammatory Drug Start: 61-46-8087epwk 1 tablet by mouth once daily in [...] Sensor (Dexcom G7 Sensor) device (19 sources)Start: 07-75-9800Ouyds-Glucose Sensor (Dexcom G7 Sensor) device Active 0 .Route September 11, 2024 11:00pm As directedStart: 71-82-9164Cnbwt- Glucose Sensor (Dexcom G7 Sensor) device Active [...] 0.05 mg oral capsule (20 sources)Vitamin DStart: 94-37-5223dpsn 1 capsule by mouth once daily Cholecalciferol (Vitamin D3) 50 mcg (2,000 unit) capsule Active 50 MCG PO Daily March 01, 2024 12:00am Complies with drug therapyStart: 11-29-7142QWW Vitamin D Maximum Strength 50 MCG (2000 UT) tablet Take by mouth Daily. 12/30/2022 Active clotrimazole 10 mg oral lozenge (1 source)Azole AntifungalStart: 68-22-7296Iuguzfavauki 10 mg deshawn Active 10 MG MUCOUS MEM Five times daily July 12, 2025 12:00am Complies with drug therapyCoenzyme Q10 (CO Q 10 PO) (5 sources)Coenzyme Q10 (CO Q 10 PO) Take by mouth ActiveContinuous Blood Gluc Rigger (Dexcom G7 Rigger) device (8 sources)Start: 54-60-6091Qswgcromsw Blood Gluc Rigger (Dexcom G7 Rigger) device USE DIRECTED 07/16/2023 ActiveContinuous Blood Gluc Sensor (Dexcom G7 Sensor) misc (8 sources)Start: 45-15-4351Pequemppru Blood Gluc Sensor (Dexcom G7 Sensor) misc USE DIRECTED, CHANGE EVERY 10 DAYS 08/18/2023 ActiveCoQ-10 (15 sources)CoQ-10 ActiveCoQ-10 100 MG (6 sources)CoQ-10 100 MG as directed Orally ONCE A DAY ActiveDexcom G6 Rigger - (20 sources)Start: 39-95-9353Orzbrh G6 Rigger - use as directed to monitor dexcom sensor Feb, ActiveStart: 28-82-1679Bkuzil G6 Sensor - (20 sources)Start: 16-99-0539Cshlbe G6 Sensor - as directed change q 10 days for 90 days Feb, ActiveStart: 31-05-6844Cbkbfc G6 Sensor - as directed change q 10 days Feb, ActiveStart: 76-72-2388Iuoaxt G6 Transmitter - (20 sources)Start: 77-40-6606Gjjgko G6 Transmitter - as directed change Q 3 months Feb, ActiveStart: 16-00-9419Rmqodw G7 Rigger - (20 sources)Start: 30-02-2302Akexkp G7 Rigger - as directed as directed as directed Jun, ActiveDexcom G7 Sensor - (20 sources)Start: 73-95-2239Pimifr G7 Sensor - as directed as directed change every 10 days for 90 days Jun, ActiveStart: 99-07-3883Tzjxmy G7 Sensor - as directed as directed change every 10 days for 30 days Jun, Active diclofenac sodium 20 mg/ml topical solution (20 sources)Nonsteroidal Anti-inflammatory DrugStart: 33-78-7838Hviozyuh 2 % 2 pumps to affected area Transdermal Twice a day Aug, ActiveStart: 00-69-1275ulczdhdxaucvcz 1.25 mg oral capsule (20 sources)Provitamin D2 CompoundStart: 09-95-2339fftg 1 capsule by mouth once dailyergocalciferol (Vitamin D-2) 1.25 MG (13998 UT) capsule Take 1 capsule (50,000 Units) by mouth oncedaily. 08/29/2021 ActiveStart: 77-10-3486odkz 1 tablet by mouth two times weeklyVitamin D (Ergocalciferol) 1.25 MG (12627 UT) Oral Capsule Take 1 tablet twice weekly Quantity: 0 Refills: 0 Ordered: 14-Jan-2022 DO Start : 29-Aug-2021 ActiveStart: 06-15-2020 End: 66-77-1316uyey 1 capsule by mouth every weekErgocalciferol (Vitamin D2) 1,250 mcg (50,000 unit) Capsule Discontinued 1250 MCG PO every week June 15, 2020 12:00am March 01, 2024 9:34am thursdaytake 1 capsule by mouth every week Ergocalciferol 49338 UNIT 1 capsule Orally Q week Activetake 1 capsule by mouth every weekErgocalciferol 24709 UNIT 1 capsule Orally Q week ActiveEster-C - (20 sources)Brooke-C - as directed Orally Activefluticasone propionate 0.05 mg/actuat metered dose nasal spray (10 sources)CorticosteroidStart: 25-19-7168uzuw 1 spray(s) nasal route twice dailyFluticasone Propionate 50 MCG/ACT 1 spray in each nostril Nasally Twice a day for 14 days Sep, ActiveStart: 93-55-0626thjp 1 spray(s) nasal route twice dailyFluticasone Propionate 50 MCG/ACT 1 spray in each nostril Nasally Twice a day for 14 days Sep, Active3 ml insulin degludec 200 unt/ml pen injector (17 sources)Insulin AnalogStart: 59-67-2975lpvzptt degludec (Tresiba FlexTouch) 200 UNIT/ML injection Indications: Type 2 diabetes mellitus with peripheral neuropathy (HCC) Inject 30 Units under the skin Daily 9 mL 3 07/27/2025 Active Start: 95-53-2841knmbtlw degludec (Tresiba FlexTouch) 200 UNIT/ML injection Indications: Type 2 diabetes mellitus with peripheral neuropathy (HCC) Inject 30 Units under the skin Daily 9 mL 3 07/27/2025 ActiveStart: 02-16-2025 End: 29-61-5953Gkqxyxv Degludec 200 unit/mL (3 mL) insulin pen Discontinued UNIT SUBCUT February 16, 2025 12:00am March 06, 2025 8:16amStart: 02-14-2025 End: 61-10-5223iujovyl degludec (Tresiba FlexTouch) 200 UNIT/ML injection Indications: Type 2 diabetes mellitus with peripheral neuropathy (HCC) Inject 60 Units under the skin Daily 9 mL 3 02/14/2025 07/27/2025 Discontinued (Dose adjustment)Insulin Degludec 200 unit/mL (3 mL) insulin pen (5 sources)Start: 85-28-6303Zqcsohy Degludec 200 unit/mL (3 mL) insulin pen Active 60 UNIT SUBCUT Daily March 06, 2025 8:13amStart: 02-16-2025 End: 82-49-5253Iizvcsa Degludec 200 unit/mL (3 mL) insulin pen Discontinued UNIT SUBCUT February 16, 2025 12:00am March 06, 2025 8:16amStart: 39-61-4923Yrassio Degludec 200 unit/mL (3 mL) insulin pen Active UNIT SUBCUT February 16, 2025 12:00am3 ml insulin lispro 100 unt/ml pen injector (20 sources)Insulin AnalogStart: 02-16-2025 End: 24-05-6166cfxpxma lispro (HumaLOG KWIKPEN) 100 UNIT/ML injection Indications: Type 2 diabetes mellitus with peripheral neuropathy (HCC) 10 units breakfast, 14 units dinner plus correction 1:30 > 150 mg/dl (max daily 50 units) 15 mL 3 05/15/2025 ActiveStart: 95-81-3385fiqtual lispro (HumaLOG) 100 UNIT/ML injection Indications: Type 2 diabetes mellitus with peripheral neuropathy (CMS/HCC) 5 units breakfast and dinner 15 mL 3 06/21/2024 ActiveStart: 36-88-3956dmmjjc 100 [IU] by subcutaneous injection at bedtimeInsulin Lispro (1 Unit Dial) 100 UNIT/ML Subcutaneous Solution Pen-injector ADMINISTER 5-6 UNITS SUBCUTANEOUSLY IN THE MORNING AND at bedtime Quantity: 12 Refills: 0 Ordered: 06-Apr-2023 DO Start : 06-Apr-2023 ActiveStart: 03-25-2022 End: 62-36-9262wijgqq 100 [IU] by subcutaneous injection once daily at bedtime as neededInsulin Lispro (Humalog Kwikpen Insulin) 100 unit/mL insulin pen Discontinued 5 - 6 UNIT SUBCUT Twice daily February 23, 2024 5:04pm February 16, 2025 9:40am once a day in the morning and PRN QHSStart: 07-25-2020 End: 01-03-8024azcdfr 5 [IU] by subcutaneous injection once daily at breakfast Insulin Lispro (Humalog Kwikpen Insulin) 100 unit/mL Insulin Pen Discontinued 5 UNIT SUBCUT Daily with breakfast July 25, 2020 12:00am February 23, 2024 5:05pmStart: 06-15-2019 End: 95-64-1132qdnqnr 5 [IU] by subcutaneous injection once daily [...] Insulin) 100 unit/mL insulin pen (20 sources)Start: 38-03-5587Pxqsbad Lispro (Humalog Kwikpen Insulin) 100 unit/mL insulin pen Active 8 - 12 UNIT SUBCUT Twice daily February 16, 2025 9:38am 8 units AM 12 units in the Afternoon and 12 units in the eveningStart: 02-23-2024 End: 33-51-4538pshiiw 100 [IU] by subcutaneous injection once daily at bedtime as neededInsulin Lispro (Humalog Kwikpen Insulin) 100 unit/mL insulin pen Discontinued 5 - 6 UNIT SUBCUT Twice daily February 23, 2024 5:04pm February 16, 2025 9:40am once a day in the morning and PRN QHSStart: 00-05-2454zddjcy 100 [IU] by subcutaneous injection once daily at bedtime as neededInsulin Lispro (Humalog Kwikpen Insulin) 100 unit/mL insulin pen Active 5 - 6 UNIT SUBCUT Twice daily February 23, 2024 4:04pm once a day in the morning and PRN QHSStart: 80-98-4575ixshqj 100 [IU] by subcutaneous injection once daily at bedtime as neededInsulin Lispro (Humalog Kwikpen Insulin) 100 unit/mL insulin pen Active 5 - 6 UNIT SUBCUT Twice daily February 23, 2024 5:04pm once a day in the morning and PRN QHS3 ml insulin, regular, human 500 unt/ml pen injector (20 sources)InsulinStart: 84-16-2014yniykos regular (HumuLIN R U-500 KWIKPEN) 500 UNIT/ML CONCENTRATED injection Indications: Type 2 diabetes mellitus with peripheral neuropathy (CMS/HCC) 55 units breakfast and 25 units dinner 6 mL 3 ActiveStart: 03-01-2024 End: 62-94-8477Dvijioa Regular Hum U-500 Conc (Humulin R U-500 (Conc) Kwikpen) 500 unit/mL (3 mL) insulin pen Discontinued 55 UNIT SUBCUT Twice daily March 01, 2024 9:35am February 16, 2025 9:37amStart: 02-23-2024 End: 82-27-9438eriawn 60 [IU] by subcutaneous injection in the morning, then inject 30 [IU] by subcutaneous injection in the eveningInsulin Regular Hum U-500 Conc (Humulin R U-500 (Conc) Kwikpen) 500 unit/mL (3 mL) insulin pen Disco ntinued 0 SUBCUT As Directed February 23, 2024 5:09pm March 01, 2024 9:42am 60 units in the morning and 30 units in the evening subcutaneously as directed; Start: 44-53-7608ahlpxqy regular (HumuLIN R U-500 KWIKPEN) 500 UNIT/ML CONCENTRATED injection Indications: Type 2 diabetes mellitus with peripheral neuropathy (CMS/HCC) 55 units breakfast and 25 units dinner 3 mL 10/12/2023 ActiveStart: 54-19-1842qqejga 60 [IU] by subcutaneous injection in the morning, then inject 30 [IU] by subcutaneous injection in the eveningHumuLIN R U-500 KwikPen 500 UNIT/ML Subcutaneous Solution Pen-injector ADMINISTER 60 UNITS IN THE MORNING AND 30 UNITS IN THE EVENING Quantity: 12 Refills: 0 Ordered: 06-Apr-2023 DO Start : 5-Edc-5060PgcpudLeosm: 02-11-2018 End: 71-34-4614Fdhhxqz Regular Hum U-500 Conc (Humulin R U-500 (Conc) Insulin) 500 unit/mL solution Discontinued 80 UNIT SUBCUT Daily with breakfast February 11, 2018 11:16am February 12, 2024 12:28pm Patient varies dosage depending on dietary intakeStart: 02-11-2018 End: 54-73-5213pfowhl 40 [IU] by subcutaneous injection once dailyInsulin Regular Hum U-500 Conc (Humulin R U-500 (Conc) Insulin) 500 unit/mL solution Discontinued 40 UNIT SUBCUT Daily with supper February 11, 2018 11:16am February 12, 2024 12:29pm Pt. varies dosage according to dietary intake.Start: 01-21-2018 End: 42-52-7339bkpdud 1 dose by subcutaneous injection four times [...] mation source for Protocol details.Start: 01-21-2018 End: 23-21-6837Zwslxow Regular Hum U-500 Conc (Humulin R U-500 (Conc) Kwikpen) 500 unit/mL (3 mL) Insulin Pen Discontinued 0 .ROUTE .COMPLEX January 21, 2018 1:00am February 11, 2018 11:17am Check glucose ac, hs.Use corrective scale ac tid. Use hs if glucose >225. Please contact the information source for Pr otocol details.Start: 01-17-2018 End: 59-81-0194Ccsuwnn Regular Hum U-500 Conc (Humulin R U-500 (Conc) Insulin) 500 unit/mL solution Discontinued 90 UNIT SUBCUT Daily with breakfast 0 January 21, 2018 8:54am February 11, 2018 11:16am If eatingStart: 12-25-2017 End: 52-43-5775Gwptbre Regular Hum U-500 Conc (Humulin R U-500 (Conc) Insulin) 500 unit/mL Solution Discontinued 80 UNIT SUBCUT Daily with supper 0 January 02, 2018 6:07pm January 17, 2018 1:34amStart: 12-25-2017 End: 29-96-3449Wiuofxq Regular Hum U-500 Conc (Humulin R U-500 (Conc) Insulin) 500 unit/mL Solution Discontinued 100 UNIT SUBCUT Daily with breakfast 0 January 03, 2018 3:07pm January 17, 2018 1:34amStart: 12-25-2017 End: 55-22-0530naycfr 100 [IU] by subcutaneous injection once daily before breakfastInsulin Regular Human (Humulin R U-100) 100 unit/mL Solution Discontinued 100 UNITS SUBCUT Daily before breakfast December 25, 2017 1:00am December 25, 2017 3:53pmStart: 12-25-2017 End: 64-10-8208dafqxp 80 [IU] by subcutaneous injection once dailyInsulin [...] (Probiotic) 3 billion cell capsule (1 source)Start: 87-84-6342kfmh 3 capsules by mouth once dailyLactobacillus Combination No.4 (Probiotic) 3 billion cell capsule Active 3000 MMU CELLS PO Daily July 12, 2025 12:00am administer with a meal Complies with drug therapylevoFLOXacin 500 mg oral tablet (3 sources)Quinolone AntimicrobialStart: 11-12-8527xdca 1 tablet by mouth every twenty-four hourslevoFLOXacin 500 MG 1 tablet Orally Once a day for 7 days Nov, Activelinezolid 600 mg oral tablet (1 source)Oxazolidinone AntibacterialStart: 40-29-8541ggcj 1 tablet by mouth twice dailyLinezolid 600 mg tablet Active 600 MG PO Twice daily July 12, 2025 12:00am Complies with drug therapymagnesium glycinate 100 mg oral tablet (20 sources)Start: 01-83-6960Cyjckuulf Glycinate 100 mg Tablet Active 600 MG PO Daily at bedtime June 17, 2019 12:00am Complies with drug therapyStart: 86-45-7225glfy 600 mg by mouth once daily at bedtimeMagnesium Glycinate Active 600 MG PO Daily at bedtime June 17, 2019 12:00amStart: 01-19-2018 End: 54-38-1930Yrjwflhaw Glycinate 100 mg Tablet Discontinued 600 MG PO Daily at bedtime January 19, 2018 1:00am February 11, 2018 11:15amStart: 01-19-2018 End: 74-38-9017qnon 600 mg by mouth once daily at bedtimeMagnesium Glycinate Discontinued 600 MG PO Daily at bedtime January 19, 2018 1:00am February 11, 018 11:15amMagnesium Glycinate Plus 600 mg (20 sources)Magnesium Glycinate Plus 600 mg 1 tablet QHS Activenitroglycerin 0.4 mg sublingual tablet (20 sources)Nitrate VasodilatorStart: 13-80-6408Ahigsapciajgq 0.4 mg tablet, sublingual Active 0.4 MG BUCCAL As Directed as needed for Chest Pain March 25, 2022 12:00am Complies with drug therapyStart: 76-58-6233bqqvdslpbjehf (Nitrostat) 0.4 mg SL tablet Indications: Chest pain, unspecified DISSOLVE 1 TABLET UNDER THE TONGUE EVERY 5 MINUTES NEEDED FOR CHEST PAIN. DO NOT EXCEED A TOTAL OF 3 DOSES IN 15 MINUTES. GO TO THE ER IF PERSISITS. 90 tablet 1 12/24/2023 ActiveStart: 62-74-1772Brnxtefjbdqfm Active 0.4 MG BUCCAL As Directed March 24, 2022 11:00pmomega-3 acid ethyl esters (halfway) 1000 mg oral capsule (20 sources)Start: 35-74-4888nqlp 1 capsule by mouth in the morningomega-3 acid ethyl esters (Lovaza) 1 g capsule Take 2 g by mouth in the morning and 2 g before bedtime. 03/04/2023 ActiveStart: 06-15-2019 End: 61-51-9186Llckl-3 Acid Ethyl Esters (Lovaza) 1 gram capsule Discontinued 2 CAP PO Twice daily 360 90 September 23, 2024 11:59am April 11, 2025 4:11pmStart: 12-25-2017 End: 20-40-5895Uwawf-3 Acid Ethyl Esters (Lovaza) 1 gram Capsule Discontinued 2 CAP PO Twice daily December 25, 2017 1:00am January 03, 2018 3:03pmomega-3 acid ethyl esters (Lovaza) 1 gram capsule Take 1 capsule (1 g) by mouth twice a day. ActivePen Needle, Diabetic (2 sources)Start: 59-37-9605Tmm Needle, Diabetic Active 0 .Route September 12, 2024 1:53pm As directedStart: 09-12-2024 End: 56-31-9377Rwd Needle, Diabetic Discontinued 0 .Route September 12, 2024 12:00am September 12, 2024 1:53pmAs directedpolyethylene glycol 3350 890277 mg / potassium chloride 2970 mg / sodium bicarbonate 6740 mg / sodium chloride 5860 mg / sodium sulfate 97331 mg powder for oral solution (2 sources)Osmotic LaxativeStart: 40-31-1468Hewmgmls 236 GM At 4:00 pm the day prior to colonoscopy Orally 8 ounces every 15 minutes for 1 daysPLEASE CHECK ALLERGIES Jul, Activepregabalin 150 mg oral capsule (20 sources)Start: 01-09-2025 End: 06-59-2268qzlf 1 capsule by mouth twice dailyPregabalin (Lyrica) 150 mg capsule Active 150 MG PO Twice daily 180 90 January 09, 2025 11:34am Complies with drug therapyStart: 88-30-3892awsq 1 capsule by mouth once in the morning Pregabalin 75 MG 1 capsule Orally Q AM Dec, ActiveStart: 08-02-2021 Start: 03-00-7241rbse 1 capsule by mouth once in the morningPregabalin 75 MG 1 capsule Orally Q AM Jul, ActiveStart: 04-01-2021 End: 59-59-1512whqc 1 capsule by mouth once dailyPregabalin (Lyrica) 150 mg capsule Discontinued 150 MG PO Daily 90 February 12, 2024 12:34pm February 12, 2024 5:43pmStart: 04-01-2021 End: 06-52-3130lvtb 2 capsules by mouth once daily in the morningPregabalin 75 mg capsule Discontinued 150 MG PO Every morning April 01, 2021 12:00am February 12, 2024 12:25pmStart: 06-15-2019 End: 74-25-5754sbjy 1 capsule by mouth once daily at bedtimePregabalin (Lyrica) 300 mg capsule Discontinued 300 MG PO Daily at bedtime 90 February 12, 2024 12 :35pm February 12, 2024 5:46pmStart: 01-21-2018 End: 86-80-7935qjuz 1 capsule by mouth twice dailyPregabalin (Lyrica) 75 mg Capsule Discontinued 75 MG PO Twice daily January 21, 2018 1:00am February 11, 2018 11:16amStart: 12-25-2017 End: 47-58-8257dvgq 1 capsule by mouth twice dailyPregabalin (Lyrica) 300 mg Capsule Discontinued 300 MG PO Twice daily December 25, 2017 1:00am January 03, 2018 3:03pm End: 55-81-9097dfga 1 capsule by mouth once daily in the morningPREGABALIN ORAL Take 1 capsule by mouth once daily in the morning. 0 02/22/2024 Discontinued (Other)Lyrica CAPS TAKING 150MG IN AM, 300MG IN PM Quantity: 0 Refills: 0 Ordered: 20-Feb-2022 DO ActiveSuper B Complex (20 sources)Super B Complex Activeubidecarenone 300 mg oral capsule (20 sources)Start: 05-88-5763yepq 10 capsules by mouth once dailyCoenzyme Q10 300 mg capsule Active 300 MG PO Daily March 01, 2024 12:00am Complies with drug therapyStart: 92-15-2918zylu 1 capsule by mouth twice dailyCo-Enzyme Q10 100 MG Oral Capsule TAKE 1 CAPSULE TWICE DAILY. Quantity: 180 Refills: 3 Ordered: 9-Ju n-2022 Rosalinda Torres MD Start : 08-May-2022 ActiveCoQ-10 100 MG as directed Orally ONCE A DAY Activeubiquinol (2 sources)COQ10, UBIQUINOL, ORAL Take by mouth. IplbsgZXW21, UBIQUINOL, ORAL Take by mouth. 0 ActiveVitamin B Complex (20 sources)Start: 18-18-9181niiy 1 tablet by mouth once daily in the morning Vitamin B Complex Active 1 TAB PO Every morning June 15, 2019 12:00amStart: 50-85-5139qspe 1 tablet by mouth once daily in the morningVitamin B Complex Active 1 TAB PO Every morning June 14, 2019 11:00pmVitamin B Complex Tablet (18 sources)Start: 70-71-0018etpy 1 tablet by mouth once daily in the morning Start: 94-08-4142gvkx 1 tablet by mouth once daily in the morningVitamin B Complex Tablet Active 1 TAB PO Every morning June 15, 2019 12:00am Complies with drug therapyStart: 12-69-9173uyvh 1 tablet by mouth once daily in the morningVitamin B Complex Tablet Active 1 TAB PO Every morning June 15, 2019 12:00amStart: 71-31-0493qsuz 1 tablet by mouth once daily in the morningVitamin B Complex Tablet Active 1 TAB PO Every morning June 14, 2019 11:00pm Completed/Discontinued Medications MedicationDrug Class(es)DatesSig (Normalized)Sig (Original)Accu-Chek Vicenta as manufactured (20 sources)Start: 54-02-4197Inym-Chek Vicenta as manufactured four times daily 250.92/V58.67 qid Nov, Not-TakingStart: 90-14-1906Laji-Chek Vicenta as manufactured four times daily 250.92/V58.67 qid Nov, ActiveStart: 52-27-0679Cnjp-Chek SmartView as manufactured (20 sources)Start: 75-52-9616Ijqg-Chek SmartView as manufactured QID e11.9 QID Nov, Not-TakingStart: 45-22-3404Tvki-Chek SmartView as manufactured QID e11.9 QID Nov, ActiveStart: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 78-63-0575UaiqhgcDzrkm nervous system disorders (3 sources)Polyneuropathy, unspecifiedOnset: 04-30-2022 Resolved: 82-71-5232GbewbcmBfnzt nervous system disorders (1 source)Hereditary motor and sensory neuropathy; 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]ChronicOther nervous system disorders (8 sources)Carpal tunnel syndrome of right wrist; Translations: [Carpal tunnel syndrome, right upper limb]Onset: 228784-62-0599DekzxrlVrufg non-traumatic joint disorders (20 sources)Charcot's joint of foot; Translations: [Charcot's joint, unspecified ankle and foot]94-72-8081OdlpfdvYuofh non-traumatic joint disorders (20 sources)Arthropathy associated with a neurological disorder; Translations: [Charcot's joint, left ankle andfoot]ChronicOther non-traumatic joint disorders (6 sources)Charcot's joint, left ankle and foot; Translations: [CHARCOTS JOINT LEFT ANKLE AND FO]Onset: 66-69-0435OgukkosNfpet non-traumatic joint disorders (2 sources)Charcot's joint, right ankle and foot; Translations: [CHARCOTS JOINT RIGHT ANKLE AND F]Onset: 88-82-7934ZhabcmwWlcdc non-traumatic joint disorders (20 sources)Pain in left knee; Translations: [Pain in left knee]EpisodicOther non-traumatic joint disorders (20 sources)Pain in right knee; Translations: [Pain in right knee]EpisodicOther non-traumatic joint disorders (20 sources)Arthralgia of the ankle and/or foot; Translations: [Pain in left ankle and joints of left foot]24-37-3026HejctomzXdrkv non-traumatic joint disorders (18 sources)Pain in right shoulder; Translations: [Right shoulder pain]Onset: 250290-21-0580OvnceanaGwjsi non-traumatic joint disorders (13 sources)Joint pain; Translations: [Pain in unspecified joint]01-09-2025 EpisodicOther nutritional; endocrine; and metabolic disorders (20 sources)Obesity; Translations: [Obesity, unspecified]Onset: 02-22-2024 31-39-3075SxdimobPcyle nutritional; endocrine; and metabolic disorders (20 sources)Hypercalcemia; Translations: [Hypercalcemia]ChronicOther nutritional; endocrine; and metabolic disorders (20 sources)Hypomagnesemia; Translations: [Hypomagnesemia]46-18-4838TgxfmfnRcogu nutritional; endocrine; and metabolic disorders (6 sources)Hypomagnesemia; Translations: [Disorders of magnesium metabolism] ChronicOther nutritional; endocrine; and metabolic disorders (2 sources)Obesity, unspecified; Translations: [Obesity, unspecified]Onset: 79-78-0006MmzzbgrYuqkp nutritional; endocrine; and metabolic disorders (2 sources)Body mass index (BMI) 37.0-37.9, adult; Translations: [Body mass index (BMI) 37.0-37.9, adult]Onset: 00-82-8691QxwuqfuBvgvi nutritional; endocrine; and metabolic disorders (14 sources)Severe obesity; Translations: [Class 2 severe obesity due to excess calories with serious comorbidity and body mass index (BMI) of 39.0 to 39.9 in adult ([facility])]Onset: 801020-22-3241LuejwvpQmahv nutritional; endocrine; and metabolic disorders (12 sources)Hyperuricemia without signs of inflammatory arthritis and tophaceous disease; Translations: [Other abnormal blood chemistry]Onset: 12-03-2021 Resolved: 89-44-6489OisfyorxDiigf nutritional; endocrine; and metabolic disorders (20 sources)Hyperuricemia; Translations: [Hyperuricemia without signs of inflammatory arthritis and tophaceous disease]02-15-4602ThohxtgbAgnlq nutritional; endocrine; and metabolic disorders (20 sources)H/O: metabolic disorder; Translations: [Personal history of other endocrine, nutritional and metabolic disease]29-23-1213CxilffpmRnqfm screening for suspected conditions (not mental disorders or infectious disease) (20 sources)Cardiovascular finding; Translations: [Abnormal findings on diagnostic imaging of other specified body structures]54-58-1337LiibposHvdtv screening for suspected conditions (not mental disorders or infectious disease) (14 sources)Electrocardiogram abnormal; Translations: [Nonspecific abnormal electrocardiogram [ECG] [EKG]]Onset: 95-27-2888RxeztjmwQftej upper respiratory infections (1 source)Acute pansinusitis, unspecifiedEpisodicPancreatic disorders (not diabetes) (20 sources)Pancreatitis; Translations: [Acute pancreatitis without necrosis or infection, unspecified]57-67-6850TzyqhuneFmefzwuj codes; unclassified (20 sources)Obstructive sleep apnea syndrome; Translations: [Obstructive sleep apnea (adult)(pediatric)]Onset: 630549-50-0044DdechheIyfjltnd codes; unclassified (8 sources)Obstructive sleep apnea (adult) (pediatric); Translations: [Obstructive sleep apnea (adult)(pediatric)]Onset: 02-07-2022 Resolved: 01-53-5110NougomjJhcmrdea codes; unclassified (20 sources)Sleep apnea; Translations: [Sleep apnea, unspecified]ChronicResidual codes; unclassified (2 sources)Sleep apnea, unspecified; Translations: [SLEEP APNEA UNSPECIFIED] Onset: 74-29-7006JmhimunTpimkcrc codes; unclassified (20 sources)Insomnia; Translations: [Insomnia, unspecified]98-24-9451Omkywtfw Residual codes; unclassified (2 sources)Other specified postprocedural statesOnset: 04-14-2022 Resolved: 48-90-9365FwppgheaDgpzsanv codes; unclassified (3 sources)Insomnia, unspecifiedOnset: 04-30-2022 Resolved: 81-90-5619ClklpxdxDbrcwmvx codes; unclassified (14 sources)Family history of dementia; Translations: [Family history of other mental and behavioral disorders]72-37-5649BnobdgmlBjsycsah codes; unclassified (9 sources)Family history of other mental and behavioral disorders; Translations: [Family history of other neurological diseases]59-78-8781Zzjuosey Septicemia (except in labor) (20 sources)Septic shock; Translations: [Sepsis, unspecified organism]02-17-2018 EpisodicSpondylosis; intervertebral disc disorders; other back problems (20 sources)Cervical spondylosis without myelopathy; Translations: [Spondylosis without myelopathy or radiculopathy, cervical region]Onset: 10-01-2021 Resolved: 33-58-4102MtqrqwwLusdhzxnlra; intervertebral disc disorders; other back problems (20 sources)Neck pain; Translations: [Cervicalgia]Onset: 10-01-2021 Resolved: 78-15-6282SshrrhugUlzlvog and strains (15 sources)Traumatic rupture of biceps tendon; Translations: [Strain of muscle, fascia and tendon of long headof biceps, unspecified arm, initial encounter] 51-84-3364MrkafgtfBwtxcjefrsnk (1 source)CONTACT W/AND (SUSP) EXPOS COVID-19; Translations: [CONTACT W/AND (SUSP) EXPOS COVID-19]Onset: 38-71-9610Rbrqzlncoqqg (1 source)Cough, unspecified; Translations: [Cough, unspecified]Onset: 12-08-2024 Past or Other Problems Problem ClassificationProblemDateDocumented DateEpisodic/ChronicAcquired foot deformities (3 sources)Varus deformity, not elsewhere classified, left ankle; Translations: [Valgus deformity, not elsewhere classified, left ankle]Onset: 01-06-2023 EpisodicCardiac dysrhythmias (6 sources)Ventricular premature beats; Translations: [Other premature beats] Resolved: 78-79-7546LvonpqbJuthkhx kidney disease (20 sources)Chronic kidney disease; Translations: [Chronic kidney disease, stage III (moderate)]Onset: 02-20-2022 Resolved: 52-05-7235Umakg acquired deformities (20 sources)Lumbar spondylolisthesis; Translations: [Spondylolisthesis, lumbar region]Onset: 014954-12-8585CtanaxxoYatcp aftercare (1 source)Other skilled nursing (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 therapy; Translations: [OTH CARE HOME CURRENT DRUG THERAPY]Onset: 45-72-5786XvrzokmzSjyre aftercare (1 source)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; Translations: [CARE HOME CURRENT USE OF INSULIN]Onset: 30-35-6010JnjmkwxeLkqtr aftercare (1 source)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; Translations: [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 CURRENT USE OF ASPIRIN]Onset: 48-98-4093DywpsxyjHnrgp aftercare (1 source)assisted (current) use of anticoagulants; Translations: [CARE HOME CURRNT USE ANTICOAGULANTS]Onset: 78-79-7907CbmguutxKqwwa bone disease and musculoskeletal deformities (1 source)Other specified disorders of bone density and structure, left ankle and foot; Translations: [OTH D/O BONE DEN STRUCT LT ANK FOOT]Onset: 01-06-2023 EpisodicOther connective tissue disease (4 sources)Pain in left foot; Translations: [PAIN IN LEFT FOOT]Onset: 11-16-2022 EpisodicOther connective tissue disease (1 source)Pain in right foot; Translations: [PAIN IN RIGHT FOOT]Onset: 05-03-2220GpvqsthwNilhw connective tissue disease (20 sources)Unspecified rotator cuff tear or rupture of right shoulder, not specified as traumatic; Translations: [Disorders of bursae and tendons in shoulder region, unspecified]Onset: 968204-45-3268XhdtcownOncza lower respiratory disease (6 sources)Dyspnea on exertion; Translations: [Other respiratory abnormalities] Resolved: 50-03-4149BywhbihtKtxhm lower respiratory disease (2 sources)Shortness of breathOnset: 02-07-2022 Resolved: 65-07-1720VsozwcutZivrf non-traumatic joint disorders (4 sources)Pain in right ankle and joints of right foot; Translations: [PAIN IN RIGHT ANKLE]Onset: 33-31-9687VowokmxcDnpno non-traumatic joint disorders (1 source)Pain in left ankle and joints of left foot; Translations: [PAIN IN LEFT ANKLE]Onset: 25-07-5558EycdxnqhFwzlukww codes; unclassified (6 sources)History of palpitations; Translations: [Personal history of other diseases of circulatory system] Resolved: 21-99-3955NxghtixyJoldntch codes; unclassified (1 source)Acquired absence of other specified parts of digestive tract; Translations: [ACQ ABSENCE OTH PART DIGESTV TRACT]Onset: 14-42-7583Huqphlcs Substance-related disorders (1 source)Opioid use, unspecified, uncomplicatedOnset: 10-01-2021 Resolved: 96-29-8226IsoglljzTzsmzkhiwgko (6 sources)Never smoked tobacco; Translations: [Never a smoker]Unclassified (1 source)Cough R05.9Onset: 12-03-2021 Resolved: 60-28-2780Ctbfrvkqebmz (1 source)Low back pain, unspecified M54.50Unclassified (2 sources)Onset: Results Test NameValueInterpretationReference RangeFacilityBasophils Auto (Bld) [#/Vol] Ordered By: Karla Lyons on 66-69-6603Rpeohiaok (Bld) [#/Vol]0.0 10 3/uL0.0-0.1 [facility] HospitalBasophils/100 WBC Auto (Bld)Ordered By: Karla Lyons on 37-69-9331Wopojhgdz/100 WBC (Bld)0.1 %Low0.2-2.0[facility] HospitalEosinophils/100 WBC Auto (Bld)Ordered By: Karla Lyons on 01-68-5376Lbkoidikwzi/100 WBC (Bld)0.0 %Low0.9-7.0[facility] HospitalErythrocyte distribution width Auto (RBC) [Ratio]Ordered By: Karla Lyons on 46-68-4123Blzbbmumfrh distribution width (RBC) [Ratio]12.2 %11.0-15.0 [facility] HospitalGlobulin Calc (S) [Mass/Vol]Ordered By: Karla Lyons on 19-32-6407Wzdqzzxp (S) [Mass/Vol]4.1 g/dLHolzer HospitalGlomerular filtration rate (GFR) estimation in non- AmericanOrdered By: Karla Lyons on 36-99-6572DEV/1.73 sq M.predicted among non-blacks MDRD (S/P/Bld) [Vol rate/Area]34 mL/min/{1.73_m2}Low>=60 mL/min/1.73m 2FCincinnati Shriners HospitalHematocrit Auto (Bld) [Volume fraction]Ordered By: aKrla Lyons on 18-56-7744Sxuefluxrk (Bld) [Volume fraction]30.3 %Low36.0-48.0 [facility] HospitalHemoglobin [Mass/volume] in BloodOrdered By: Karla Lyons on 49-65-2873Cojwtbqkas (Bld) [Mass/Vol]10.1 g/dLLow12.0-16.0 [facility] HospitalLaboratory - Chemistry and Chemistry - challengeOrdered By: Karla Lyons on 37-93-3997Pspvjow [Mass/Vol]1.9 g/dLLow 3.4-5.0[facility] HospitalALP [Catalytic activity/Vol]99 U/L46-116 [facility] HospitalALT [Catalytic activity/Vol]23 U/L14-59 [facility] HospitalAST [Catalytic activity/Vol]14 U/JNfb72-16 [facility] HospitalBilirubin [Mass/Vol]0.3 mg/dL0.2-1.0[facility] HospitalCalcium [Mass/Vol]8.6 mg/dL8.5-10.1FCincinnati Shriners HospitalChloride [Moles/Vol]106 mmol/O20-860MfziarohkHolzer HospitalCO2 [Moles/Vol]23.0 mmol/L21.0-32.0[facility] Creatinine [Mass/Vol]1.54 mg/dLHigh0.55-1.02[facility] GFR/1.73 sq M.predicted MDRD (S/P/Bld) [Vol rate/Area]41 mL/min/{1.73_m2}Low>=60 mL/min/1.73m 2FCincinnati Shriners HospitalGlucose [Mass/Vol]253 mg/dLHigh 74-106Hol[facility] HospitalMagnesium [Mass/Vol]1.7 mg/dLLow1.8-2.4 [facility] HospitalPotassium [Moles/Vol]5.0 mmol/L3.5-5.1FCincinnati Shriners HospitalProtein [Mass/Vol]6.0 g/dLLow6.4-8.2FDelaware County Hospitalodium [Moles/Vol]138 mmol/V107-960JpbbpbbuwHolzer HospitalUrea nitrogen [Mass/Vol]56.0 mg/dLHigh7.0-18.0[facility] HospitalUrea nitrogen/Creatinine [Mass ratio]36.4 mg/mgHolzer HospitalLaboratory - Hematology and Cell countsOrdered By: Karla Lyons on 31-20-9312CUK (Bld) [Velocity]106 mm/hHigh<=30[facility] Immature granulocytes/100 WBC (Bld)0.8 %High0.0-0.5FCincinnati Shriners HospitalLeukocytes [#/volume] corrected for nucleated erythrocytes in Blood by Automated counOrdered By: Karla Lyons on 78-97-1244BTT corrected for nucl RBC Auto (Bld) [#/Vol]11.8 10 3/uLHigh4.0-11.0[facility] Lymphocytes Auto (Bld) [#/Vol]Ordered By: Karla Lyons on 27-30-0231Enajfhqoxzi (Bld) [#/Vol]0.8 10 3/uLLow1.2-3.8[facility] Lymphocytes/100 WBC Auto (Bld)Ordered By: Karla Lyons on 06-30-2025 Lymphocytes/100 WBC (Bld)7.0 %Low20.5-60.0[facility]H Auto (RBC) [Entitic mass]Ordered By: Karla Lyons on 90-29-9483XBE (RBC) [Entitic mass]29.3 pg26.7-34.0[facility] HospitalMCHC Auto (RBC) [Mass/Vol]Ordered By: Karla Lyons on 78-47-4540BHCD (RBC) [Mass/Vol]33.3 g/dL 29.9-35.2FCincinnati Shriners HospitalMCV Auto (RBC) [Entitic vol]Ordered By: Karla Lyons on 56-45-9587XSD (RBC) [Entitic vol]87.8 fL81.0-99.0[facility] HospitalMonocytes Auto (Bld) [#/Vol]Ordered By: Karla Lyons on 77-42-6641Gfnjavpjd (Bld) [#/Vol]0.5 10 3/uL0.3-0.8[facility] HospitalMonocytes/100 WBC Auto (Bld)Ordered By: Karla Lyons on 06-30-2025 Monocytes/100 WBC (Bld)3.9 %1.7-12.0[facility] HospitalNeutrophils Auto (Bld) [#/Vol]Ordered By: Karla Lyons on 74-61-8005Losalokpqnb (Bld) [#/Vol]10.4 10 3/uLHigh1.4-6.5FCincinnati Shriners HospitalNeutrophils/100 WBC Auto (Bld)Ordered By: Karla Lyons on 53-56-0995Yciolxycefs/100 WBC (Bld) 88.2 %High43.0-75.0[facility] HospitalNo Panel InformationOrdered By: Gustavo Cuevas on 25-59-6272Odegdwcz Identification OnlyHolzer HospitalNo Panel InformationOrdered By: Karla Lyons on 85-58-0539L- Reactive Protein, Axkuyspxnlgx83.95 mg/dLHigh<=0.50[facility] HospitalEosinophils # (Auto)0.0 10 3/uL0.0-0.7FCincinnati Shriners Hospital Immature Granulocyte # (Auto)0.09 10 3/uLHigh0.00-0.03[facility] HospitalPlatelet mean volume Auto (Bld) [Entitic vol]Ordered By: Karla Lyons on 18-04-1809Clysrmtk mean volume (Bld) [Entitic vol]11.5 fL9.5-13.5FCincinnati Shriners HospitalPlatelets Auto (Bld) [#/Vol]Ordered By: Karla Lyons on 15-56-4460Vtxvgdzym (Bld) [#/Vol]184 10 3/kC523-326TmnzqhmjpHolzer HospitalRBC Auto (Bld) [#/Vol]Ordered By: Karla Lyons on 21-60-7768REO (Bld) [#/Vol]3.45 10 6/uLLow4.20-5.40OhioHealtherum or plasma albumin/globulin mass ratioOrdered By: Karla Lyons on 06-30-2025 Albumin/Globulin [Mass ratio]0.5 {ratio}OhioHealtherum or plasma anion gap determinationOrdered By: Karla Lyons on 49-40-4665Jgxox gap [Moles/Vol]14.0 mmol/LFCincinnati Shriners HospitalBasophils Auto (Bld) [#/Vol]Ordered By: Karla Lyons on 16-43-1397Hqvoyjwlp (Bld) [#/Vol]0.0 10 3/uL 0.0-0.1FCincinnati Shriners HospitalBasophils/100 WBC Auto (Bld)Ordered By: Karla Lyons on 74-93-9739Ihgqicezq/100 WBC (Bld)0.1 %Low0.2-2.0[facility] HospitalEosinophils/100 WBC Auto (Bld)Ordered By: Karla Lyons on 64-95-9405Vplhjxouuen/100 WBC (Bld)0.1 %Low0.9-7.0[facility] HospitalErythrocyte distribution width Auto (RBC) [Ratio]Ordered By: Karla Lyons on 55-86-7108Trbbjtwkrlt distribution width (RBC) [Ratio]12.3 %11.0-15.0 [facility] HospitalGlobulin Calc (S) [Mass/Vol]Ordered By: Karla Lyons on 40-52-1327Avhobtgn (S) [Mass/Vol]4.3 g/dLHolzer HospitalGlomerular filtration rate (GFR) estimation in non- AmericanOrdered By: Karla Lyons on 34-83-1497IHR/1.73 sq M.predicted among non-blacks MDRD (S/P/Bld) [Vol rate/Area]31 mL/min/{1.73_m2}Low>=60 mL/min/1.73m 2FCincinnati Shriners HospitalHematocrit Auto (Bld) [Volume fraction]Ordered By: Karla Lyons on 13-20-5614Xnqbeiwibf (Bld) [Volume fraction]31.1 %Low36.0-48.0 [facility] HospitalHemoglobin [Mass/volume] in BloodOrdered By: Karla Lyons on 48-85-8708Jljntxqwef (Bld) [Mass/Vol]10.6 g/dLLow12.0-16.0 [facility] HospitalLaboratory - Chemistry and Chemistry - challengeOrdered By: Karla Lyons on 31-12-5891Hfhmelb [Mass/Vol]2.1 g/dLLow 3.4-5.0[facility] HospitalALP [Catalytic activity/Vol]88 U/L46-116 [facility] HospitalALT [Catalytic activity/Vol]17 U/L14-59 [facility] HospitalAST [Catalytic activity/Vol]14 U/ZPoa95-03 [facility] HospitalBilirubin [Mass/Vol]0.5 mg/dL0.2-1.0[facility] HospitalCalcium [Mass/Vol]8.9 mg/dL8.5-10.1FCincinnati Shriners HospitalChloride [Moles/Vol]104 mmol/P60-071OndlpssdnHolzer HospitalCO2 [Moles/Vol]21.2 mmol/L21.0-32.0[facility] Creatinine [Mass/Vol]1.68 mg/dLHigh0.55-1.02[facility] GFR/1.73 sq M.predicted MDRD (S/P/Bld) [Vol rate/Area]37 mL/min/{1.73_m2}Low>=60 mL/min/1.73m 2FCincinnati Shriners HospitalGlucose [Mass/Vol]201 mg/dLHigh 74-106Hol[facility] HospitalPotassium [Moles/Vol]5.1 mmol/L3.5-5.1 [facility] HospitalProtein [Mass/Vol]6.4 g/dL6.4-8.2FDelaware County Hospitalodium [Moles/Vol]137 mmol/S748-396RdnqauwkxHolzer HospitalUrea nitrogen [Mass/Vol]62.0 mg/dLHigh7.0-18.0[facility] HospitalUrea nitrogen/Creatinine [Mass ratio]36.9 mg/mgHolzer HospitalLaboratory - Chemistry and Chemistry - challengeOrdered By: Elpidio Whipple on 63-50-7694Bbrnwvdnd [Mass/Vol]1.9 mg/dL1.8-2.4FCincinnati Shriners HospitalLaboratory - Hematology and Cell countsOrdered By: Karla Lyons on 16-59-3129Ownuonbz granulocytes/100 WBC (Bld)0.3 %0.0-0.5FCincinnati Shriners HospitalLeukocytes [#/volume] corrected for nucleated erythrocytes in Blood by Automated counOrdered By: Karla Lyons on 11-25-1609VFF corrected for nucl RBC Auto (Bld) [#/Vol]14.5 10 3/uLHigh4.0-11.0[facility] HospitalLymphocytes Auto (Bld) [#/Vol]Ordered By: Karla Lyons on 06-29-2025 Lymphocytes (Bld) [#/Vol]0.7 10 3/uLLow1.2-3.8[facility] Lymphocytes/100 WBC Auto (Bld)Ordered By: Karla Lyons on 06-29-2025 Lymphocytes/100 WBC (Bld)4.9 %Low20.5-60.0[facility] Auto (RBC) [Entitic mass]Ordered By: Karla Lyons on 38-64-7206QYK (RBC) [Entitic mass]30.1 pg26.7-34.0[facility] HospitalMCHC Auto (RBC) [Mass/Vol]Ordered By: Karla Lyons on 11-88-3711CLAE (RBC) [Mass/Vol]34.1 g/dL 29.9-35.2FCincinnati Shriners HospitalMCV Auto (RBC) [Entitic vol]Ordered By: Karla Lyons on 21-09-8522UCG (RBC) [Entitic vol]88.4 fL81.0-99.0[facility] HospitalMonocytes Auto (Bld) [#/Vol]Ordered By: Karla Lyons on 63-95-0112Valleywxl (Bld) [#/Vol]0.7 10 3/uL0.3-0.8[facility] HospitalMonocytes/100 WBC Auto (Bld)Ordered By: Karla Lyons on 06-29-2025 Monocytes/100 WBC (Bld)4.8 %1.7-12.0[facility] HospitalNeutrophils Auto (Bld) [#/Vol]Ordered By: Karla Lyons on 81-35-0191Hzwjultaunn (Bld) [#/Vol]13.0 10 3/uLHigh1.4-6.5FCincinnati Shriners HospitalNeutrophils/100 WBC Auto (Bld)Ordered By: Karla Lyons on 79-91-4654Uiwtuhxjeim/100 WBC (Bld) 89.8 %High43.0-75.0[facility] HospitalNo Panel InformationOrdered By: Karla Lyons on 26-84-5918Xuuwjikkmun # (Auto)0.0 10 3/uL0.0-0.7FCincinnati Shriners HospitalImmature Granulocyte # (Auto)0.05 10 3/uLHigh0.00-0.03 [facility] HospitalPlatelet mean volume Auto (Bld) [Entitic vol] Ordered By: Karla Lyons on 63-83-7589Ownqetcl mean volume (Bld) [Entitic vol] 11.4 fL9.5-13.5FCincinnati Shriners HospitalPlatelets Auto (Bld) [#/Vol] Ordered By: Karla Lyons on 48-68-5572Ummyoodvf (Bld) [#/Vol]178 10 3/uT777-415 [facility] HospitalRBC Auto (Bld) [#/Vol]Ordered By: Karla Lyons on 59-90-8079JHB (Bld) [#/Vol]3.52 10 6/uLLow4.20-5.40OhioHealtherum or plasma albumin/globulin mass ratioOrdered By: Karla Lyons on 54-23-9943Skksqvl/Globulin [Mass ratio]0.5 {ratio}OhioHealtherum or plasma anion gap determinationOrdered By: Karla Lyons on 63-57-5313Xjfme gap [Moles/Vol]16.9 mmol/LFCincinnati Shriners Hospital Basophils Auto (Bld) [#/Vol]Ordered By: Charan Casey on 55-12-6383Kehnjmcoc (Bld) [#/Vol]0.0 10 3/uL0.0-0.1FCincinnati Shriners HospitalBasophils/100 WBC Auto (Bld)Ordered By: Charan Casey on 68-99-9380Dfadqkxfm/100 WBC (Bld)0.1 %Low0.2-2.0 [facility] HospitalEosinophils/100 WBC Auto (Bld)Ordered By: Charan Casey on 73-90-7712Fwvimkxsuop/100 WBC (Bld)0.1 %Low0.9-7.0[facility] HospitalErythrocyte distribution width Auto (RBC) [Ratio]Ordered By: Charan Casey on 76-77-0981Wblyzinihsn distribution width (RBC) [Ratio]12.1 %11.0-15.0 [facility] HospitalGlobulin Calc (S) [Mass/Vol]Ordered By: Gustavo Cuevas on 53-37-7438Ovobgqdr (S) [Mass/Vol]4.6 g/dLHolzer HospitalGlomerular filtration rate (GFR) estimation in non- AmericanOrdered By: Gustavo Cuevas on 30-43-6314XNO/1.73 sq M.predicted among non-blacks MDRD (S/P/Bld) [Vol rate/Area]19 mL/min/{1.73_m2}Low>=60 mL/min/1.73m 2FCincinnati Shriners HospitalHematocrit Auto (Bld) [Volume fraction]Ordered By: Charan Casey on 74-01-2730Xykpbvrqon (Bld) [Volume fraction]33.7 %Low36.0-48.0[facility] HospitalHemoglobin [Mass/volume] in BloodOrdered By: Charan Casey on 45-90-3929Zcrhslpdzk (Bld) [Mass/Vol]11.7 g/dLLow12.0-16.0[facility] HospitalINR in Platelet poor plasma by Coagulation assayOrdered By: Gustavo Cuevas on 04-17-5604IKZ Coag (PPP) [Relative time]1.02 {INR}[facility] HospitalComment on above:DESIRED INR:2.0-3.0 CONDITIONS NOT LISTED BELOW2.5-3.5 FOR PROSTHETIC HEART VALVE REPLACEMENT2.5-3.5 RECURRENT THROMBOSISLaboratory - Chemistry and Chemistry - challengeOrdered By: Gustavo Cuevas on 13-83-9739Qjeldgd [Mass/Vol]2.7 g/dLLow3.4-5.0[facility] HospitalALP [Catalytic activity/Vol]90 U/G77-114BsspaeiojHolzer Hospital ALT [Catalytic activity/Vol]23 U/G10-47EgbgcnxoxHolzer HospitalAST [Catalytic activity/Vol]25 U/Z21-99CfjsbowmdHolzer HospitalBilirubin [Mass/Vol]0.6 mg/dL0.2-1.0[facility] HospitalCalcium [Mass/Vol]9.3 mg/dL8.5-10.1FCincinnati Shriners HospitalChloride [Moles/Vol]99 mmol/L 98-107Hol[facility] HospitalCO2 [Moles/Vol]22.3 mmol/L21.0-32.0 [facility] HospitalCreatinine [Mass/Vol]2.58 mg/dLHigh0.55-1.02 [facility] HospitalGFR/1.73 sq M.predicted MDRD (S/P/Bld) [Vol rate/Area]23 mL/min/{1.73_m2}Low>=60 mL/min/1.73m 2FCincinnati Shriners HospitalGlucose [Mass/Vol]81 mg/eG87-779NpdekoemtHolzer HospitalLactate [Moles/Vol]1.3 mmol/L0.4-2.0[facility] HospitalPotassium [Moles/Vol]4.9 mmol/L3.5-5.1FCincinnati Shriners HospitalProtein [Mass/Vol] 7.3 g/dL6.4-8.2FDelaware County Hospitalodium [Moles/Vol]136 mmol/L 136-145Hol[facility] HospitalUrea nitrogen [Mass/Vol]72.0 mg/dLHigh 7.0-18.0[facility] HospitalUrea nitrogen/Creatinine [Mass ratio] 27.9 mg/mgHolzer HospitalLaboratory - Hematology and Cell countsOrdered By: Charan Casey on 79-06-5397LNM (Bld) [Velocity]104 mm/hHigh<=30 [facility] HospitalImmature granulocytes/100 WBC (Bld)0.5 %0.0-0.5 [facility] HospitalLeukocytes [#/volume] corrected for nucleated erythrocytes in Blood by Automated counOrdered By: Charan Casey on 50-21-7370VRG corrected for nucl RBC Auto (Bld) [#/Vol]17.3 10 3/uLHigh4.0-11.0[facility] HospitalLymphocytes Auto (Bld) [#/Vol]Ordered By: Charan Casey on 54-68-9459Nfuteimajoy (Bld) [#/Vol]0.7 10 3/uLLow1.2-3.8[facility] HospitalLymphocytes/100 WBC Auto (Bld)Ordered By: Charan Casey on 06-28-2025 Lymphocytes/100 WBC (Bld)4.0 %Low20.5-60.0[facility] Auto (RBC) [Entitic mass]Ordered By: Charan Casey on 91-10-6568YEM (RBC) [Entitic mass]30.4 pg26.7-34.0[facility]HC Auto (RBC) [Mass/Vol] Ordered By: Charan Casey on 31-37-7061UZEJ (RBC) [Mass/Vol]34.7 g/dL29.9-35.2 [facility] HospitalMCV Auto (RBC) [Entitic vol]Ordered By: Charan Casey on 26-05-7204MGX (RBC) [Entitic vol]87.5 fL81.0-99.0[facility] HospitalMonocytes Auto (Bld) [#/Vol]Ordered By: Charan Casey on 06-28-2025 Monocytes (Bld) [#/Vol]0.7 10 3/uL0.3-0.8[facility] Monocytes/100 WBC Auto (Bld)Ordered By: Charan Casey on 58-02-7296Yupwzwrlh/100 WBC (Bld)4.0 %1.7-12.0[facility] HospitalNeutrophils Auto (Bld) [#/Vol]Ordered By: Charan Casey on 88-47-4412Rhdwzocoija (Bld) [#/Vol]15.8 10 3/uL High1.4-6.5FCincinnati Shriners HospitalNeutrophils/100 WBC Auto (Bld) Ordered By: Charan Casey on 32-36-8519Qcpvwvmtwsx/100 WBC (Bld)91.3 %High43.0-75.0 [facility] HospitalNo Panel InformationOrdered By: Charan Casey on 73-40-4684P-Reactive Protein, Xpvwkpewgwft83.00 mg/dLHigh<=0.50Hol[facility] HospitalEosinophils # (Auto)0.0 10 3/uL0.0-0.7FCincinnati Shriners HospitalImmature Granulocyte # (Auto)0.09 10 3/uLHigh0.00-0.03[facility] HospitalNo Panel InformationOrdered By: Gustavo Cuevas on 06-28-2025 Venous Blood Partial Pressure CO241.7 mm[Hg]40.0-52.0[facility] HospitalVenous Blood pH7.3547.330-7.430Hol[facility] HospitalPlatelet mean volume Auto (Bld) [Entitic vol]Ordered By: Charan Casey on 67-25-4524Tzphhbsk mean volume (Bld) [Entitic vol]11.8 fL9.5-13.5FCincinnati Shriners Hospital Platelets Auto (Bld) [#/Vol]Ordered By: Charan Casey on 02-63-1305Hungzbkcl (Bld) [#/Vol]178 10 3/jQ363-406DfyuyiuadHolzer HospitalProthrombin time (PT) Ordered By: Gustavo Cuevas on 40-95-5717RX Coag (PPP) [Time]10.8 s9.0-11.6FCincinnati Shriners HospitalRBC Auto (Bld) [#/Vol]Ordered By: Charan Casey on 92-61-0179WTR (Bld) [#/Vol]3.85 10 6/uLLow4.20-5.40OhioHealtherum or plasma albumin/globulin mass ratioOrdered By: Gustavo Cuevas on 30-43-6180Qhdxzik/Globulin [Mass ratio]0.6 {ratio}OhioHealtherum or plasma anion gap determinationOrdered By: Gustavo Cuevas on 46-69-9234Esxtv gap [Moles/Vol]19.6 mmol/LFCincinnati Shriners HospitalX-ray reportOrdered By: Néstor Mays on 49-19-0778Fwoag reportMER[facility] [place] [address] [place] [address] XRay Report Signed Patient: Rita Cobb MR#: [id number] : 1960 Acct:[id number] Age/Sex: 64 / F ADM Date: 5 Loc: XDS Room: Type: [facility] Attending Dr: Acosta Castro DPM MS Copies [...] Néstor Mays MD 06/05/251734 Signed By: 06/05/251740 [facility] Work Phone: XR foot BI 3Von 07-78-8321OS foot BI 3VM[facility] [place] [address] XRay Report Signed Patient: Rita Cobb MR#: [id number] : 1960 Acct:[id number] Age/Sex: 64 / F ADM Date: 06/05/25 Loc: XDS Room: Type: [facility] Attending Dr: Acosta Castro DPM, [place] Copies [...] Néstor Mays MD 06/05/251734 Signed By: 06/05/25 1741[facility] HwifoOiJ7s (Bld) [Mass fraction]on 88-26-9607Eafyemurezsvhg and review of laboratory resultsAbNovant Health Presbyterian Medical CenterLaboratory - Hematology and Cell countson 53-67-5142KkB3k (Bld) [Mass fraction]8.1 %[facility] CenterMR shoulder RT wo conon 23-62-5442YV shoulder RT wo [facility] [place] [address] [place] [address] MRI Report Signed Patient: Rita Cobb MR#: [id number] : 1960 Acct:[id number] Age/Sex: 64 / F ADM Date: 01/23/25 Loc: [facility] Room: Type: [facility] Attending Dr: Nader Curry DO Copies [...] Timothy Levi M.D.01/26/2025 9:38 AM Dictation Location: [place] [address] Transcribed By: [facility] 01/26/25 0938 Dictated By: Timothy Levi II, MD 01/26/25 0902 Signed By: 01/26/2538[facility] Physician GroupInfluenza virus B Ag [Presence] in Upper respiratory specimen by Rapid immunoassayon 58-39-4316LXTYG Ag IA.rapid Ql (Nph)Influenza virus B Ag [Presence] in Upper respiratory specimen by Rapid immunoassayHolzer HospitalNo Panel Informationon 12-09-2024 Influenza Type A (Rapid)NegativeHolzer HospitalPO SARS CoV-2 AntigenNegativeHolzer HospitalNo Panel InformationOrdered By: Charan Casey on 30-96-4511IRC (POC)Holzer HospitalRSV (POC) [facility] HospitalX-ray reportOrdered By: Néstor Mays on 54-86-1327Aesao reportMER[facility] [place] [address] XRay Report Signed Patient: Rita Cobb MR#: [id number] : 1960 Acct:[id number] Age/Sex: 64 / F ADM Date: 5 Loc: XDS Room: Type: [facility] Attending Dr: Charan Casey DO Copies [...] Néstor Mays M.D.12/08/2024 3:59 PM Dictation Location: [place] [address] Transcribed By: [facility] 12/08/24 1559 Dictated By: Néstor Mays MD 12/08/24 1524 Signed By: 12/08/24 1559 [facility] Work Phone: XR chest 2V*on 83-36-9336DK chest 2V*[facility] [place] [address] [place] [address] XRay Report Signed Patient: Rita Cobb MR#: [id number] : 1960 Acct:[id number] Age/Sex: 64 / F ADM Date: 12/08/24 Loc: [facility] Room: Type: [facility] Attending Dr: Charan Casey DO Copies [...] Mays MD 12/08/24 1524 Signed By: 12/08/24 1559[facility] GroupXR shoulder RT min 2V*on 96-76-8317IA shoulder RT min 2V*[facility] [address] [place] [address] XRay Report Signed Patient: Rita Cobb MR#: [id number] : 1960 Acct:[id number] Age/Sex: 63 / F ADM Date: 10/25/24 Loc: [facility] Room: Type: [facility] Attending Dr: Nader Curry DO Copies to: [...] Crisostomo MD 10/25/24 0908 Signed By: 10/25/24 0911[facility] MuhpbScW4i (Bld) [Mass fraction]on 21-68-1072Rrikrkrxjwoqje and review of laboratory resultsFormerly [facility] HospitalLaboratory - Hematology and Cell countson 25-79-0555AbL1n (Bld) [Mass fraction]7.6 %[facility] screening mammo BI w/CADon 32-56-8974BI screening mammo BI w/CADMER[facility] ST[facility] [place] [address] [place] [address] Mammography Report Signed Patient: Rita Cobb MR#: [id number] : 1960 Acct:[id number] Age/Sex: 63 / F ADM Date: 09/07/24 Loc: [place] Room: Type: [facility] Attending Dr: Referral Self Copies to: [...] Brown Jr., D.O.09/07/2024 9:04 AM Dictation Location: [facility] Transcribed By: FRANKY 09/07/24903 Dictated By: Sudhir Brown Jr, DO 09/07/24899 Signed By: 09/07/24903[facility] Physician GroupAlbumin [Mass/volume] in Serum or Plasma by Bromocresol green (BCG) dye binding methoOrdered By: Elpidio Whipple on 68-29-9722Keggwry BCG dye [Mass/Vol]4.3 g/dL3.5-5.7FCincinnati Shriners HospitalAutomated erythrocytes count in urine sediment (number/area)Ordered By: Elpidio Whipple on 49-10-6703FWS Auto (Urine sed) [#/Area]1-2 [HPF]0-4FCincinnati Shriners HospitalAutomated leukocytes count in urine sediment (number/area)Ordered By: Elpidio Whipple on 15-45-9644TLJ Auto (Urine sed) [#/Area] 5-9 [HPF]0-4FCincinnati Shriners HospitalBilirubin Test strip Ql (U)Ordered By: Elpidio Whipple on 52-59-3169Wnydqwufl Ql (U)NegativeNegativeHolzer HospitalCalcium [Mass/volume] in Serum or PlasmaOrdered By: Elpidio Whipple on 04-68-9599Krlrssm [Mass/Vol]9.8 mg/dL8.6-10.3FCincinnati Shriners Hospital Carbon dioxide, total [Moles/volume] in Serum or PlasmaOrdered By: Elpidio Whipple on 18-34-1952SO7 [Moles/Vol]30.4 mmol/L21.0-31.0Holzer HospitalChloride [Moles/volume] in Serum or PlasmaOrdered By: Elpidio Whipple on 18-62-4487Gysdpntd [Moles/Vol]103 mmol/V38-935GvcmciixzHolzer Hospital Color Auto (U)Ordered By: Elpidio Whipple on 58-26-3781Nwzjw (U)Dark yellowYellow [facility] HospitalCreatinine [Mass/volume] in Serum or Plasma Ordered By: Elpidio Whipple on 80-25-8673Tnswxbbgfu [Mass/Vol]1.19 mg/dL0.60-1.20 [facility] HospitalCreatinine [Mass/volume] in UrineOrdered By: Elpidio Whipple on 52-36-2866Kwcfpvwpea (U) [Mass/Vol]101.0 mg/dLHolzer HospitalComment on above:No reference range establishedErythrocyte distribution width Auto (RBC) [Ratio]Ordered By: Elpidio Whipple on 02-29-2024 Erythrocyte distribution width (RBC) [Ratio]12.9 %11.9-15.3FCincinnati Shriners HospitalGlucose [Mass/volume] in Serum or PlasmaOrdered By: Elpidio Whipple on 70-16-0125Whtzhgu [Mass/Vol]164 mg/kV56-156WvlzweabcHolzer Hospital Comment on above:ADA recommended reference rangeRandom Glucose Reference Range is dependent on time and content of last meal. Glucose of more than 200 mg/dL in a nonstressed, ambulatory subject supports the diagnosisof Diabetes Mellitus. Hematocrit Auto (Bld) [Volume fraction]Ordered By: Elpidio Whipple on 02-29-2024 Hematocrit (Bld) [Volume fraction]39.7 %34.0-46.4FCincinnati Shriners HospitalHemoglobin [Mass/volume] in BloodOrdered By: Elpidio Whipple on 02-29-2024 Hemoglobin (Bld) [Mass/Vol]13.4 g/dL11.8-15.4FCincinnati Shriners Hospital Ketones Auto test strip (U) [Mass/Vol]Ordered By: Elpidio Whipple on 02-29-2024 Ketones (U) [Mass/Vol]NegativeNegativeHolzer Hospital Laboratory - UrinalysisOrdered By: Elpidio Whipple on 85-69-9592Gonmnze casts LM Ql (Urine sed)0-8 [LPF]0-8Holzer HospitalLeukocytes [#/volume] corrected for nucleated erythrocytes in Blood by Automated counOrdered By: Elpidio Whipple on 58-66-9980TUE corrected for nucl RBC Auto (Bld) [#/Vol]4.5 10*3/uL 3.8-11.6FCincinnati Shriners HospitalMCH Auto (RBC) [Entitic mass]Ordered By: Elpidio Whipple on 41-36-4895YFZ (RBC) [Entitic mass]29.1 pg24.7-34.3FCincinnati Shriners HospitalMCHC Auto (RBC) [Mass/Vol]Ordered By: Elpidio Whipple on 59-37-3780FEOP (RBC) [Mass/Vol]33.8 g/dL32.0-35.0Holzer HospitalMCV Auto (RBC) [Entitic vol]Ordered By: Elpidio Whipple on 99-20-6062HYA (RBC) [Entitic vol]86.2 aE81-818UunfxtyuiHolzer HospitalMagnesium [Mass/volume] in Serum or PlasmaOrdered By: Elpidio Whipple on 45-71-1165Qabzihida [Mass/Vol]1.6 mg/dL1.9-2.7FCincinnati Shriners HospitalNitrite Test strip Ql (U)Ordered By: Elpidio Whipple on 52-06-4619Iqxlfen Ql (U)NegativeNegativeHolzer HospitalNo Panel InformationOrdered By: Elpidio Whipple on 15-71-4872Jtquahkzo GFR (CKD-EPI)51.377 mL/MinHolzer Hospital Pharmacy Creatinine Clearance (ChemN/[facility] Parathyrin.intact [Mass/volume] in Serum or PlasmaOrdered By: Elpidio Whipple on 15-29-0595Hgqotzpthd.intact [Mass/Vol]53.1 pg/sC81-62LzhkabjukHolzer HospitalPhosphate [Mass/volume] in Serum or PlasmaOrdered By: Elpidio Whipple on 78-04-3047Dgonjpbdw [Mass/Vol]2.8 mg/dL2.5-4.5FCincinnati Shriners Hospital Platelet mean volume Auto (Bld) [Entitic vol]Ordered By: Elpidio Whipple on 71-22-4612Yyxrlfwi mean volume (Bld) [Entitic vol]9.5 fL6.3-10.7FCincinnati Shriners HospitalPlatelets Auto (Bld) [#/Vol]Ordered By: Elpidio Whipple on 42-57-6481Jsnlhgkao (Bld) [#/Vol]174 10*3/dD000-647OywfipqslHolzer HospitalPotassium [Moles/volume] in Serum or PlasmaOrdered By: Elpidio Whipple on 81-92-6866Fdrtkcpde [Moles/Vol]4.6 mmol/L3.5-5.1FCincinnati Shriners HospitalProtein Auto test strip (U) [Mass/Vol]Ordered By: Elpidio Whipple on 92-68-4741Ndodnrh (U) [Mass/Vol]30 mg/dLNegativeHolzer HospitalProtein [Mass/volume] in UrineOrdered By: Elpidio Whipple on 60-27-9139Bxtqgjz (U) [Mass/Vol]43 mg/dL0-9Holzer HospitalRBC Auto (Bld) [#/Vol]Ordered By: Elpidio Whipple on 33-98-5309EZE (Bld) [#/Vol]4.61 10*6/uL 3.60-5.00OhioHealtherum or plasma anion gap determinationOrdered By: Elpidio Whipple on 64-13-2180Glruf gap [Moles/Vol]11.2 mmol/L6.0-15.0OhioHealthodium [Moles/volume] in Serum or PlasmaOrdered By: Elpidio Whipple on 33-72-2760Xuvwbc [Moles/Vol]140 mmol/W632-236 OhioHealthpecific gravity Auto test strip (U) [Rel density]Ordered By: Elpidio Whipple on 59-59-3037Zojicfgk gravity (U) [Rel density] 1.0191.001-1.030OhioHealthquamous epithelial cells detection in urine sediment by light microscopyOrdered By: Elpidio Whipple on 84-62-7369Gypyheozlo cells.squamous LM Ql (Urine sed)10-19 [HPF]0-2FCincinnati Shriners HospitalUrate [Mass/volume] in Serum or PlasmaOrdered By: Elpidio Whipple on 52-57-8366Mugqe [Mass/Vol]7.1 mg/dL2.3-6.6FCincinnati Shriners HospitalUrea nitrogen [Mass/volume] in Serum or PlasmaOrdered By: Elpidio Whipple on 43-35-7617Hgrs nitrogen [Mass/Vol]29 mg/dL7-25[facility] Urine bacteria detection by automated methodOrdered By: Elpidio Whipple on 60-16-0950Iglrvkyx Auto Ql (U)None seenNone SeenHolzer HospitalUrine clarity by refractometry automatedOrdered By: Elpidio Whipple on 13-54-4236Wmeoapp Refractometry automated (U)ClearClearFseattle va medical center Regional Medical CenterUrine culture routineOrdered By: Elpidio Whipple on 34-73-0818Ldkfkkdy identified Cx Nom (U)2 DaysHolzer HospitalUrine glucose measurement by automated test strip (mass/volume)Ordered By: Elpidio Whipple on 42-78-6805Isshwhp Auto test strip (U) [Mass/Vol]Normal mg/dLNoTrumbull Regional Medical CenterUrine hemoglobin detection by automated test stripOrdered By: Elpidio Whipple on 99-70-7600Xjpgldbdet Auto test strip Ql (U)NegativeNegative [facility] HospitalUrine leukocyte esterase detection by automated test stripOrdered By: Elpidio Whipple on 91-37-1992Nowdiptja esterase Auto test strip Ql (U)2+NegativeHolzer HospitalUrine protein/creatinine ratioOrdered By: Elpidio Whipple on 26-32-8206Ohnjiuy/Creatinine (U) [Ratio]426 mg/g{Cre}0-200Holzer HospitalUrobilinogen Auto test strip (U) [Mass/Vol]Ordered By: Elpidio Whipple on 15-11-7760Llgchbtjbevp (U) [Mass/Vol]Normal mg/dLNoTrumbull Regional Medical CenterVitamin D+Metabolites [Mass/volume] in Serum or PlasmaOrdered By: Elpidio Whipple on 23-76-2428Vomfglx D+Metabolites [Mass/Vol]48.0 ng/kF09-147NavyphovnHolzer HospitalComment on above: VITAMIN D STATUS 25(OH)VITAMIN D RANGE (ng/mL) Deficient <20 Insufficient 20 to <31Ihlggynycz75 to 100Reference: Nayeli MF,Hannah NC, Jose GILBERT, et al. Evaluation,treatment, and prevention of vitamin D deficiency; an Endocrine Society clinical practice guideline. JCEM. 2010; 96(7):1911-30.pH Auto test strip (U)Ordered By: Elpidio Whipple on 96-50-2259zW (U)5.5 [pH]5.0-9.0Holzer HospitalRSVon 45-40-2795ILW Ag IA Ql (Unsp spec)NegativeNoComic Reply Other Alanine aminotransferase [Enzymatic activity/volume] in Serum or PlasmaOrdered By: Charan Casey on 43-12-2994XJO [Catalytic activity/Vol]16 U/L7-52Hol[facility] HospitalAlbumin [Mass/volume] in Serum or Plasma by Bromocresol green (BCG) dye binding methoOrdered By: Charan Casey on 92-38-6565Pbukspf BCG dye [Mass/Vol]4.2 g/dL3.5-5.7FCincinnati Shriners HospitalAlkaline phosphatase [Enzymatic activity/volume] in Serum or PlasmaOrdered By: Charan Casey on 72-55-8083UBI [Catalytic activity/Vol]65 U/L 34-104Holzer HospitalAspartate aminotransferase [Enzymatic activity/volume] in Serum or PlasmaOrdered By: Charan Casey on 20-76-8640EIC [Catalytic activity/Vol]16 U/E60-46CbqacqydrHolzer Hospital Bilirubin.total [Mass/volume] in Serum or PlasmaOrdered By: Charan Casey on 23-64-9913Wvjemnbfz [Mass/Vol]0.6 mg/dL0.3-1.0[facility] Calcium [Mass/volume] in Serum or PlasmaOrdered By: Charan Casey on 11-26-2023 Calcium [Mass/Vol]9.8 mg/dL8.6-10.3FCincinnati Shriners HospitalCarbon dioxide, total [Moles/volume] in Serum or PlasmaOrdered By: Charan Casey on 87-07-6808XN6 [Moles/Vol]34.6 mmol/L21.0-31.0[facility] Chloride [Moles/volume] in Serum or PlasmaOrdered By: Charan Casey on 11-26-2023 Chloride [Moles/Vol]101 mmol/T53-227SertzblowHolzer HospitalCholesterol [Mass/volume] in Serum or PlasmaOrdered By: Charan Casey on 08-88-8877Cwgdskgoixe [Mass/Vol]140 mg/aC421-468EneskhsvhHolzer HospitalComment on above: Chol less than 200 mg/dl low riskChol 201-239 mg/dl borderline riskChol 240 mg/dl and greater high riskCholesterol in LDL Calc [Mass/Vol]Ordered By: Charan Casey on 91-20-6383Ylamxhitfsc in LDL [Mass/Vol]56 mg/dL0-100Hol[facility] HospitalComment on above:LDL ATP III CLASSIFICATIONLDL less than 100 mg/dL OptimalLDL 100-129 mg/dL Near or above ppandcnZUB744-890 mg/dL Borderline highLDL 160-189 mg/dL HighLDL greater than 189 mg/dL Very highCholesterol in VLDL Calc [Mass/Vol]Ordered By: Charan Casey on 55-72-6963Xywxoswryvv in VLDL [Mass/Vol]45 mg/dLHolzer HospitalCreatinine [Mass/volume] in Serum or PlasmaOrdered By: Charan Casey on 05-73-8407Djxsywdvwv [Mass/Vol]1.25 mg/dL0.60-1.20Hol[facility] HospitalGlobulin Calc (S) [Mass/Vol] Ordered By: Charan Casey on 78-43-2327Ajkamumq (S) [Mass/Vol]2.6 g/dLHolzer HospitalGlucose [Mass/volume] in Serum or PlasmaOrdered By: Charan Casey on 73-70-5696Fbcqmqe [Mass/Vol]122 mg/xS44-794XipocsfbuHolzer HospitalComment on above:ADA recommended reference rangeRandom Glucose Reference Range is dependent on time and content of last meal. Glucose of more than 200 mg/dL in a nonstressed, ambulatory subject supports the diagnosisof Diabetes Mellitus.No Panel InformationOrdered By: Charan Casey on 27-70-4601Jppvpqxqg GFR (CKD-EPI)48.432 mL/MinHolzer HospitalPharmacy Creatinine Clearance (ChemN/AFCincinnati Shriners HospitalPotassium [Moles/volume] in Serum or PlasmaOrdered By: Charan Casey on 56-29-3544Ksoqljalf [Moles/Vol]4.6 mmol/L3.5-5.1FCincinnati Shriners HospitalProtein [Mass/volume] in Serum or PlasmaOrdered By: Charan Casey on 78-26-8049Mlydzzg [Mass/Vol]6.8 g/dL6.4-8.9 OhioHealtherum or plasma albumin/globulin mass ratio Ordered By: Charan Casey on 23-11-8552Utupmsl/Globulin [Mass ratio]1.6 {ratio} OhioHealtherum or plasma anion gap determinationOrdered By: Charan Casey on 64-13-6165Hvaoy gap [Moles/Vol]9.0 mmol/L6.0-15.0OhioHealtherum or plasma high density lipoprotein (HDL) cholesterol measurementOrdered By: Charan Casey on 76-24-9148Aqvpihhtdxc in HDL [Mass/Vol]39 mg/lL84-68SriwnwnjxHolzer HospitalComment on above:HDL CHOL ATP-III CLASSIFICATION Cardiovascular RiskHDL > or equal to 60 mg/dL LOWHDL < 40 mg/dL HIGHSerum or plasma total cholesterol/high density lipoprotein (HDL) cholesterol mass ratOrdered By: Charan Casey on 11-26-2023 Cholesterol.total/Cholesterol in HDL [Mass ratio]3.6 {ratio}<5.0OhioHealthodium [Moles/volume] in Serum or PlasmaOrdered By: Charan Casey on 71-57-2866Cqkybp [Moles/Vol]140 mmol/Q198-044BojzejmgdHolzer HospitalTriglyceride [Mass/volume] in Serum or PlasmaOrdered By: Charan Casey on 95-33-3347Yqfhjzwwhlku [Mass/Vol]227 mg/dL0-149[facility] Comment on above:TRIG ATP III CLASSIFICATIONTRIG less than 150 mg/dL NormalTRIG 150-199 mg/dL Borderline highTRIG 200-500 mg/dL High TRIG greater than 500 mg/dL Very highStandard traceable to the Center for Disease Conrtrol and Prevention (CDC) test method.Urea nitrogen [Mass/volume] in Serum or PlasmaOrdered By: Charan Casey on 22-06-9325Lmqo nitrogen [Mass/Vol]32 mg/dL7-[facility]zer HospitalGlucose Glucometer (BldC) [Mass/Vol]Ordered By: Yasmeen Treadwell on 11-21-1129Uetbtgb [Mass/Vol]150 mg/dLHolzer HospitalComment on above:Random Glucose Reference Range is dependent on time and content of last meal. Glucose of more than 200 mg/dL in a nonstressed, ambulatory subject supports the diagnosis of Diabetes Mellitus.Albumin [Mass/volume] in Serum or Plasma by Bromocresol green (BCG) dye binding methoOrdered By: Elpidio Whipple on 50-02-6504Yzioakx BCG dye [Mass/Vol]4.5 g/dL3.5-5.7FCincinnati Shriners HospitalAutomated erythrocytes count in urine sediment (number/area)Ordered By: Elpidio Whipple on 92-37-5821TFA Auto (Urine sed) [#/Area]None seen [HPF]0-4 [facility] HospitalAutomated leukocytes count in urine sediment (number/area)Ordered By: Elpidio Whipple on 95-07-2726SJY Auto (Urine sed) [#/Area] 1-2 [HPF]0-4FCincinnati Shriners HospitalBilirubin Test strip Ql (U)Ordered By: Elpidio Whipple on 77-29-9955Fbbolanfi Ql (U)NegativeNegativeHolzer HospitalCalcium [Mass/volume] in Serum or PlasmaOrdered By: Elpidio Whipple on 22-98-9914Binrwzs [Mass/Vol]9.5 mg/dL8.6-10.3FCincinnati Shriners Hospital Carbon dioxide, total [Moles/volume] in Serum or PlasmaOrdered By: Elpidio Whipple on 12-63-2782QO6 [Moles/Vol]29.7 mmol/L21.0-31.0Hol[facility] HospitalChloride [Moles/volume] in Serum or PlasmaOrdered By: Elpidio Whipple on 77-76-3103Frdizlye [Moles/Vol]106 mmol/C66-371KuwvrjlzvHolzer Hospital Color Auto (U)Ordered By: Elpidio Whipple on 98-30-8122Hcfnc (U)Dark yellowYellow [facility] HospitalCreatinine [Mass/volume] in Serum or Plasma Ordered By: Elpidio Whipple on 63-67-9632Hneyaexhks [Mass/Vol]1.29 mg/dL0.60-1.20 [facility] HospitalCreatinine [Mass/volume] in UrineOrdered By: Elpidio Whipple on 74-79-0765Btvtwxzhtc (U) [Mass/Vol]87.0 mg/dL11.0-20.0Hol[facility] HospitalErythrocyte distribution width Auto (RBC) [Ratio]Ordered By: Elpidio Whipple on 07-01-2833Vswcivhiter distribution width (RBC) [Ratio]13.5 % 11.9-15.3FCincinnati Shriners HospitalGlucose [Mass/volume] in Serum or PlasmaOrdered By: Elpidio Whipple on 71-70-4459Lprzgor [Mass/Vol]97 mg/pU85-782 [facility] HospitalComment on above:ADA recommended reference rangeRandom Glucose Reference Range is dependent on time and content of last meal. Glucose of more than 200 mg/dL in a nonstressed, ambulatory subject supports the diagnosisof Diabetes Mellitus.Hematocrit Auto (Bld) [Volume fraction]Ordered By: Elpidio Whipple on 55-56-1322Kfqbtlqkji (Bld) [Volume fraction] 42.7 %34.0-46.4FCincinnati Shriners HospitalHemoglobin [Mass/volume] in BloodOrdered By: Elpidio Whipple on 29-86-0130Zbbtybwevg (Bld) [Mass/Vol]14.3 g/dL 11.8-15.4FCincinnati Shriners HospitalKetones Auto test strip (U) [Mass/Vol] Ordered By: Elpidio Whipple on 35-17-4838Vjwybvn (U) [Mass/Vol]NegativeNegative [facility] HospitalLaboratory - UrinalysisOrdered By: Elpidio Whipple on 04-47-1964Tnrtomt casts LM Ql (Urine sed)0-8 [LPF]0-8Hol[facility] HospitalLeukocytes [#/volume] corrected for nucleated erythrocytes in Blood by Automated counOrdered By: Elpidio Whipple on 51-61-4927HMN corrected for nucl RBC Auto (Bld) [#/Vol]7.7 10*3/uL3.8-11.6FCincinnati Shriners Hospital MCH Auto (RBC) [Entitic mass]Ordered By: Elpidio Whipple on 78-21-2345FPT (RBC) [Entitic mass]29.1 pg24.7-34.3FCincinnati Shriners HospitalMCHC Auto (RBC) [Mass/Vol]Ordered By: Elpidio Whipple on 21-67-8192ZVZG (RBC) [Mass/Vol]33.6 g/dL 32.0-35.0Holzer HospitalMCV Auto (RBC) [Entitic vol]Ordered By: Elpidio Whipple on 77-40-5941QQU (RBC) [Entitic vol]86.5 cI00-316WoxkarqkaHolzer HospitalMagnesium [Mass/volume] in Serum or PlasmaOrdered By: Elpidio Zarater on 30-30-4690Nlnrrwizk [Mass/Vol]1.9 mg/dL1.9-2.7FCincinnati Shriners HospitalNitrite Test strip Ql (U)Ordered By: Elpidio Whipple on 09-14-2023 Nitrite Ql (U)NegativeNegativeHolzer HospitalNo Panel InformationOrdered By: Elpidio Whipple on 67-41-4292Dfqhhsrzv GFR (CKD-EPI)46.926 mL/MinHolzer HospitalPharmacy Creatinine Clearance (ChemN/A [facility] HospitalParathyrin.intact [Mass/volume] in Serum or PlasmaOrdered By: Elpidio Whipple on 24-00-8357Klskgxquno.intact [Mass/Vol]133.6 pg/eW19-74VhnhmnmeyHolzer HospitalPhosphate [Mass/volume] in Serum or PlasmaOrdered By: Elpidio Whipple on 35-72-7560Xbfzmucvp [Mass/Vol]3.4 mg/dL3.7-7.2 [facility] HospitalPlatelet mean volume Auto (Bld) [Entitic vol] Ordered By: Elpidio Whipple on 07-99-6789Rdjwkfee mean volume (Bld) [Entitic vol] 10.0 fL6.3-10.7FCincinnati Shriners HospitalPlatelets Auto (Bld) [#/Vol] Ordered By: Elpidio Zarater on 99-82-9770Etqkodtbm (Bld) [#/Vol]193 10*3/aM741-768 [facility] HospitalPotassium [Moles/volume] in Serum or Plasma Ordered By: Elpidio Whipple on 77-96-1462Zxvzrabdt [Moles/Vol]4.7 mmol/L3.5-5.1 [facility] HospitalProtein Auto test strip (U) [Mass/Vol]Ordered By: Elpidio Whipple on 71-11-7830Escjqre (U) [Mass/Vol]NegativeNegativeHolzer HospitalProtein [Mass/volume] in UrineOrdered By: Elpidio Silvadir on 41-28-5534Rdyxmjg (U) [Mass/Vol]12 mg/dL0-9Holzer HospitalRBC Auto (Bld) [#/Vol]Ordered By: Elpidio Whipple on 30-41-0752NEU (Bld) [#/Vol]4.93 10*6/uL3.60-5.00OhioHealtherum or plasma anion gap determinationOrdered By: Elpidio Whipple on 91-84-3185Hnrqv gap [Moles/Vol]11.0 mmol/L6.0-15.0OhioHealthodium [Moles/volume] in Serum or PlasmaOrdered By: Elpidio Whipple on 32-98-7015Vnvhjb [Moles/Vol]142 mmol/M476-418 OhioHealthpecific gravity Auto test strip (U) [Rel density]Ordered By: Elpidio Whipple on 79-62-8015Jlyxcuih gravity (U) [Rel density] 1.0201.001-1.030OhioHealthquamous epithelial cells detection in urine sediment by light microscopyOrdered By: Elpidio Whipple on 52-44-6656Gcwuwxpajf cells.squamous LM Ql (Urine sed)3-4 [HPF]0-2FCincinnati Shriners HospitalUrate [Mass/volume] in Serum or PlasmaOrdered By: Elpidio Whipple on 37-50-3899Knbtk [Mass/Vol]6.2 mg/dL2.3-6.6FCincinnati Shriners HospitalUrea nitrogen [Mass/volume] in Serum or PlasmaOrdered By: Elpidio Sole on 13-91-4542Xxon nitrogen [Mass/Vol]46 mg/dL7-25[facility] bacteria detection by automated methodOrdered By: Elpidio Whipple on 78-16-4992Rpnschnp Auto Ql (U)None seenNone SeenHolzer HospitalUrine clarity by refractometry automatedOrdered By: Elpidio Whipple on 65-16-7500Jyrnwlg Refractometry automated (U)ClearClearFCincinnati Shriners HospitalUrine glucose measurement by automated test strip (mass/volume) Ordered By: Elpidio Sole on 35-73-6151Xpnjhpa Auto test strip (U) [Mass/Vol] Normal mg/dLNoTrumbull Regional Medical CenterUrine hemoglobin detection by automated test stripOrdered By: Elpidio Silvadir on 10-38-7439Bgfeiqherq Auto test strip Ql (U)NegativeNegativeHolzer HospitalUrine leukocyte esterase detection by automated test stripOrdered By: Elpidio Whipple on 09-14-2023 Leukocyte esterase Auto test strip Ql (U)1+NegativeHolzer HospitalUrine protein/creatinine ratioOrdered By: Elpidio Sole on 09-14-2023 Protein/Creatinine (U) [Ratio]138 mg/g{Cre}0-200Holzer HospitalUrobilinogen Auto test strip (U) [Mass/Vol]Ordered By: Elpidio Whipple on 72-64-0956Ympxvthtpiff (U) [Mass/Vol]Normal mg/dLNoTrumbull Regional Medical CenterVitamin D+Metabolites [Mass/volume] in Serum or PlasmaOrdered By: Elpidio Sole on 29-80-5839Lrehzfm D+Metabolites [Mass/Vol]50.6 ng/pM74-902 Holzer HospitalComment on above:VITAMIN D STATUS 25(OH)VITAMIN D RANGE (ng/mL) Deficient <20 Insufficient 20 to <71Xyfszmgqnq57 to 100Reference: Nayeli MF,Hannah NC, Jose GILBERT, et al. Evaluation,treatment, and prevention of vitamin D deficiency; an Endocrine Society clinical practice guideline. JCEM. 2010; 96(7):1911-30.pH Auto test strip (U)Ordered By: Elpidio Silvadir on 25-95-3487vN (U)5.5 [pH]5.0-9.0Holzer HospitalUrine 10 SGon 27-20-5914Qvightp DL <= 20 mg/L (U) [Mass/Vol]NegativeNobates [facility] memorial hospital [employer] Other pH (U)6.0 [pH][place] [employer] Other Urine 10 SGNegativeNobates county memorial hospital [employer] Other Urine 10 SG1.010Nort [employer] Other Urine 10 SG0.2[place] [employer] Other Height or Weight NOT Doneon 56-15-2938Gtipw depression screening assessmentNoLincoln Hospital [employer] DO Work Phone: Fall risk assessmenta) No falls within the last year [facility] [employer] DO Work Phone: Tobacco use status CPHSb) NoMNew[facility] [employer] DO Work Phone: Office Visit (Cardiology)on 43-54-9765Bowlls-up visit Diagnoses/Problems Assessed CAD (coronary artery disease) [...] any trouble since her angioplasty. She has Xqxvzhw-Lyjje-Xvtjx disease and had recent surgery on the [...] machine patient has been compliant with it. 7?Ibegmba-Ckaex-Cwuje joint in the ankles status post recent [...] TABLET DAILY. Vitamin D (Ergocalciferol) 1.25 MG (91820 UT) Oral CapsuleTake 1 tablet twice weekly Allergies Medication Erythromycin Base TABS Adverse Reaction; Gatrointestinal upset; Updated By: Adrianna Emanuel; (more content not included)...NormalUH [facility] CenterPOINT OF CARE GLUCOSEon 04-13-2023 Glucose [Mass/Vol]215 mg/dLCritically dqcv26-566Mjg [facility] CenterComment on above:Performed By: #### POCGLUC ####[facility] [address] [place] [address]DrDerek SotoPROF CHEM 8 (BAS METB)on 03-31-2023 Anion gap [Moles/Vol]9.6 mmol/LNormalGrant HospitalComment on above: Performed By: #### BMP ####[facility] [address] [place] [address]DrBalaji SotoCalcium [Mass/Vol]10.3 mg/dLCritically high8.5-10.1The [facility] CenterComment on above:Performed By: #### BMP ####[facility] [address] [place], [place] [address]Dr. Tere ChangChloride [Moles/Vol]103 mmol/AGmuuzp26-451Zyv [facility] Comment on above:Performed By: #### BMP ####[facility] [address] [place], [place] [address]Dr.Tere ChangCO2 [Moles/Vol]31.0 mmol/L Sfjfse63.0-32.0The [facility] CenterComment on above:Performed By: #### BMP ####[facility] [address] [place], [place] [address]Dr. Tere ChangCreatinine [Mass/Vol]1.48 mg/dLCritically high0.55-1.02The [facility] CenterComment on above:Performed By: #### BMP ####[facility] I[address] [place], [place] [address]Dr.Tere ChangEGFR-AF XREPMVNL74 mL/min/1.92l7Hdtwkolial low>=60The [facility] CenterComment on above: Performed By: #### BMP ####[facility] [address] [place], [place] [address]Dr.Tere ChangEGFR-NON AF XXZIOYND99 mL/min/1.73m2 Critically low>=60The [facility] CenterComment on above:Performed By: #### BMP ####[facility] [address] [place], [place] [address]Dr. Tere ChangGlucose [Mass/Vol]173 mg/dLCritically akzu76-358Gta [facility] Comment on above:Performed By: #### BMP ####[facility] [address]ws[address] [place], [place] [address]Dr.Tere ChangPotassium [Moles/Vol]4.6 mmol/LNormal3.5-5.1The [facility] CenterComment on above:Performed By: #### BMP ####[facility] [address] [place], [place] [address]Dr. Tere ChangSodium [Moles/Vol]139 mmol/BEsdirb068-952Vni [facility] CenterComment on above:Performed By: #### BMP ####[facility] [address] [place], [place] [address]Sf.Tere ChangUrea nitrogen [Mass/Vol]63.0 mg/dL Critically high7.0-18.0The [facility] CenterComment on above:Performed By: #### BMP ####[facility] [address] [place], [place] [address]Ay. Tere ChangUrea nitrogen/Creatinine [Mass ratio]42.6 mg/mgNoOhioHealthComment on above:Performed By: #### BMP ####[facility] [address] [place], [place] [address]Xs.Tere ChangCT FOOT LT WO CONon 04-20-1082IC FOOT LT WO CONEXAMINATION: CT FOOT LT [...] Electronically authenticated by: BLANKA OLGUIN Date: 2023-03-23 14:59Miami Valley HospitalAlbumin [Mass/volume] in Serum or Plasma by Bromocresol green (BCG) dye binding methoOrdered By: Elpidio Whipple on 60-34-4812Eqqmvpw BCG dye [Mass/Vol]4.7 g/dL3.5-5.7FCincinnati Shriners HospitalAutomated erythrocytes count in urine sediment (number/area)Ordered By: Elpidio Whipple on 63-16-8318LEO Auto (Urine sed) [#/Area]None seen [HPF]0-4FCincinnati Shriners Hospital Automated leukocytes count in urine sediment (number/area)Ordered By: Elpidio Whipple on 00-70-3263MIO Auto (Urine sed) [#/Area]5-9 [HPF]0-4FCincinnati Shriners HospitalBilirubin Test strip Ql (U)Ordered By: Elpidio Whipple on 03-06-2023 Bilirubin Ql (U)NegativeNegativeHolzer HospitalCalcium [Mass/volume] in Serum or PlasmaOrdered By: Elpidio Whipple on 36-57-7580Hzefzmy [Mass/Vol]10.2 mg/dL8.6-10.3FCincinnati Shriners HospitalCarbon dioxide, total [Moles/volume] in Serum or PlasmaOrdered By: Elpidio Whipple on 17-80-2563RP8 [Moles/Vol]28.4 mmol/L21.0-31.0Holzer HospitalChloride [Moles/volume] in Serum or PlasmaOrdered By: Elpidio Whipple on 01-88-9749Fhvaodiw [Moles/Vol]104 mmol/L62-815JuhccfaswHolzer HospitalColor Auto (U) Ordered By: Elpidio Whipple on 79-31-2951Vgfbd (U)Dark yellowYellowHolzer HospitalCreatinine [Mass/volume] in Serum or PlasmaOrdered By: Elpidio Whipple on 10-04-3218Zypjubsnlk [Mass/Vol]1.22 mg/dL0.60-1.20Holzer HospitalCreatinine [Mass/volume] in UrineOrdered By: Elpidio Whipple on 20-23-1059Mgbaqmduau (U) [Mass/Vol]98.0 mg/dLHolzer HospitalComment on above:No reference range establishedErythrocyte distribution width Auto (RBC) [Ratio]Ordered By: Elpidio Whipple on 12-03-2543Gllclqneheq distribution width (RBC) [Ratio]13.8 %11.9-15.3FCincinnati Shriners Hospital Glucose [Mass/volume] in Serum or PlasmaOrdered By: Elpidio Whipple on 03-06-2023 Glucose [Mass/Vol]101 mg/zE62-737QamjhninjHolzer HospitalComment on above:ADA recommended reference rangeRandom Glucose Reference Range is dependent on time and content of last meal. Glucose of more than 200 mg/dL in a nonstressed, ambulatory subject supports the diagnosisof Diabetes Mellitus. Hematocrit Auto (Bld) [Volume fraction]Ordered By: Elpidio Whipple on 03-06-2023 Hematocrit (Bld) [Volume fraction]38.1 %34.0-46.4FCincinnati Shriners HospitalHemoglobin [Mass/volume] in BloodOrdered By: Elpidio Whipple on 03-06-2023 Hemoglobin (Bld) [Mass/Vol]12.7 g/dL11.8-15.4FCincinnati Shriners Hospital Ketones Auto test strip (U) [Mass/Vol]Ordered By: Elpidio Whipple on 03-06-2023 Ketones (U) [Mass/Vol]NegativeNegativeHolzer Hospital Laboratory - UrinalysisOrdered By: Elpidio Whipple on 87-82-4145Xltoyap casts LM Ql (Urine sed)0-8 [LPF]0-8Holzer HospitalLeukocytes [#/volume] corrected for nucleated erythrocytes in Blood by Automated counOrdered By: Elpidio Whipple on 50-47-4349YFH corrected for nucl RBC Auto (Bld) [#/Vol]5.4 10*3/uL 3.8-11.6FOhioHealth Arthur G.H. Bing, MD, Cancer CenterH Auto (RBC) [Entitic mass]Ordered By: Elpidio Whipple on 27-06-1893QDN (RBC) [Entitic mass]28.1 pg24.7-34.3FCincinnati Shriners HospitalMCHC Auto (RBC) [Mass/Vol]Ordered By: Elpidio Whipple on 52-61-9112YSIQ (RBC) [Mass/Vol]33.3 g/dL32.0-35.0Holzer HospitalMCV Auto (RBC) [Entitic vol]Ordered By: Elpidio Whipple on 20-79-9107LAA (RBC) [Entitic vol]84.5 hK36-889JydhmtxpvHolzer HospitalMagnesium [Mass/volume] in Serum or PlasmaOrdered By: Elpidio Whipple on 26-45-4562Plbohiwbq [Mass/Vol]1.5 mg/dL1.9-2.7FCincinnati Shriners HospitalNitrite Test strip Ql (U)Ordered By: Elpidio Whipple on 82-44-4537Uujfqcn Ql (U)NegativeNegativeHolzer HospitalNo Panel InformationOrdered By: Elpidio Whipple on 53-65-2546Ujrrsiook GFR (CKD-EPI)50.176 mL/MinHolzer Hospital Pharmacy Creatinine Clearance (ChemN/[facility] Parathyrin.intact [Mass/volume] in Serum or PlasmaOrdered By: Elpidio Whipple on 01-18-4041Wdtqhwngrl.intact [Mass/Vol]43.8 pg/fJ39-62UbtwcruftHolzer HospitalPhosphate [Mass/volume] in Serum or PlasmaOrdered By: Elpidio Whipple on 49-93-9985Xeduskhux [Mass/Vol]4.3 mg/dL3.7-7.2FCincinnati Shriners Hospital Platelet mean volume Auto (Bld) [Entitic vol]Ordered By: Elpidio Whipple on 17-35-4333Rhkdyozp mean volume (Bld) [Entitic vol]8.7 fL6.3-10.7FCincinnati Shriners HospitalPlatelets Auto (Bld) [#/Vol]Ordered By: Elpidio Whipple on 65-89-9078Phahbyphj (Bld) [#/Vol]191 10*3/vB630-081QfcbvhkgeHolzer HospitalPotassium [Moles/volume] in Serum or PlasmaOrdered By: Elpidio Whipple on 10-77-7301Afxofiiwz [Moles/Vol]4.0 mmol/L3.5-5.1FCincinnati Shriners HospitalProtein Auto test strip (U) [Mass/Vol]Ordered By: Elpidio Whipple on 78-33-6253Oyamelc (U) [Mass/Vol]NegativeNegativeHolzer HospitalProtein [Mass/volume] in UrineOrdered By: Elpidio Whipple on 96-90-5459Gwzazhj (U) [Mass/Vol]8 mg/dL0-9Holzer HospitalRBC Auto (Bld) [#/Vol] Ordered By: Elpidio Whipple on 64-96-0041UIU (Bld) [#/Vol]4.51 10*6/uL3.60-5.00 OhioHealtherum or plasma anion gap determinationOrdered By: Elpidio Whipple on 39-83-0684Qgjoh gap [Moles/Vol]12.6 mmol/L6.0-15.0OhioHealthodium [Moles/volume] in Serum or PlasmaOrdered By: Elpidio Whipple on 26-58-7804Ufzkeo [Moles/Vol]141 mmol/D912-565SwaynjddsOhioHealthpecific gravity Auto test strip (U) [Rel density]Ordered By: Elpidio Whipple on 20-47-1404Qwpvgdyx gravity (U) [Rel density]1.0171.001-1.030 OhioHealthquamous epithelial cells detection in urine sediment by light microscopyOrdered By: Elpidio Whipple on 08-15-2608Izseutzpua cells.squamous LM Ql (Urine sed)5-9 [HPF]0-2FCincinnati Shriners Hospital Urate [Mass/volume] in Serum or PlasmaOrdered By: Elpidio Whipple on 80-08-7940Nitqx [Mass/Vol]6.7 mg/dL2.3-6.6FCincinnati Shriners HospitalUrea nitrogen [Mass/volume] in Serum or PlasmaOrdered By: Elpidio Whipple on 43-58-4358Koaz nitrogen [Mass/Vol]37 mg/dL7-25Holzer HospitalUrine bacteria detection by automated methodOrdered By: Elpidio Whipple on 72-31-9361Ytpzlztd Auto Ql (U)None seenNone SeenHolzer HospitalUrine clarity by refractometry automatedOrdered By: Elpidio Whipple 63-91-4729Kgadsav Refractometry automated (U)ClearClearFCincinnati Shriners HospitalUrine culture routineOrdered By: Elpidio Whipple on 18-01-0149Zbvyqfmo identified Cx Nom (U)2 DaysHolzer HospitalUrine glucose measurement by automated test strip (mass/volume)Ordered By: Elpidio Whipple on 07-14-5003Ssffujc Auto test strip (U) [Mass/Vol]Normal mg/dLNoTrumbull Regional Medical CenterUrine hemoglobin detection by automated test stripOrdered By: Elpidio Whipple on 96-39-9170Xrembovdvq Auto test strip Ql (U)NegativeNegativeHolzer HospitalUrine leukocyte esterase detection by automated test stripOrdered By: Elpidio Whipple on 74-34-4927Pczgvxjmt esterase Auto test strip Ql (U)2+Negative Holzer HospitalUrine protein/creatinine ratioOrdered By: Elpidio Whipple on 71-57-3501Etvigqr/Creatinine (U) [Ratio]82 mg/g{Cre}0-200Holzer HospitalUrobilinogen Auto test strip (U) [Mass/Vol]Ordered By: Elpidio Whipple on 93-96-0810Uqrviyyvzanr (U) [Mass/Vol]Normal mg/dLNoTrumbull Regional Medical CenterVitamin D+Metabolites [Mass/volume] in Serum or Plasma Ordered By: Elpidio Whipple on 98-28-8106Ettxxuv D+Metabolites [Mass/Vol]46.0 ng/mL 30-100Holzer HospitalComment on above:VITAMIN D STATUS 25(OH)VITAMIN D RANGE (ng/mL) Deficient <20 Insufficient 20 to <20Ztlgrozpqi13 to 100Reference: Nayeli MF,Hannah NC, Jose GILBERT, et al. Evaluation,treatment, and prevention of vitamin D deficiency; an Endocrine Society clinical practice guideline. JCEM. 2010; 96(7):1911-30.pH Auto test strip (U)Ordered By: Elpidio Whipple on 74-24-6170cB (U)5.5 [pH]5.0-9.0Holzer HospitalXR FOOT LAURA MIN 3 VIEWSon 84-27-3404OQ FOOT LAURA MIN 3 VIEWSEXAMINATION: XR FOOT [...] Electronically authenticated by: BRODERICK FLOR Date: 2023-02-17 14:34NoEast [facility] AUTO DIFFon 48-41-6495NKAA #0.0 103/ulNormal0.0-0.1Grant HospitalComment on above:Performed By: #### CBC #### [facility] [address] [place] [address] Dr. Tere SotoBasophils/100 WBC (Bld)0.6 %Normal0.2-2.0[facility] Comment on above:Performed By: #### CBC #### [facility] [address] [place] [address] Dr. Tere Barksdale #0.1 103/ulNormal0.0-0.7ThAvita Health System Galion HospitalComment on above: Performed By: #### CBC #### [facility] [address] [place] [address] Dr. Tere Mendezosinophils/100 WBC (Bld)2.9 %Normal0.9-7.0[facility] Comment on above:Performed By: #### CBC #### [facility] [address] [place] [address] Dr. Yilan ChangErythrocyte distribution width (RBC) [Ratio]13.2 %Prjelj44.0-15.0 The [facility] Medical CenterComment on above:Performed By: #### CBC #### [facility] [address] [place] [address] Dr. Tere SotoHematocrit (Bld) [Volume fraction]39.0 %Cbutwk77.0-48.0The [facility] CenterComment on above:Performed By: #### CBC #### [facility] [address] [place] [address] Dr. Tere SotoHemoglobin (Bld) [Mass/Vol]13.0 g/sENdtylo88.0-16.0The [facility] CenterComment on above:Performed By: #### CBC #### [facility] [address] [place] [address] Dr. Tere Carolina #0.01 10e3/ulNormal0.00-0.03The [facility] CenterComment on above:Performed By: #### CBC #### [facility] [address] [place] [address] Dr. Tere Carolina %0.2 %Normal0.0-0.5The [facility] CenterComascension providence hospital on above: Performed By: #### CBC #### [facility] [address] [place] [address] Dr. Tere MendietaH #2.1 103/ulNormal1.2-3.8The [facility] CenterComment on above:Performed By: #### CBC #### [facility] [address] [place] [address] Dr. Tere Escamillamphocytes/100 WBC (Bld)42.6 %Hzwutn55.5-60.0The [facility] Medical CenterComment on above:Performed By: #### CBC #### [facility] [address] [place] [address] Dr. Tere SmithUAL DIFF REQNONormalThe [facility] CenterComment on above: Performed By: #### CBC #### [facility] [address] [place] [address] Dr. Tere Lomeli (RBC) [Entitic mass]28.4 xvOjkggj01.7-34.0The [facility] Medical CenterComment on above:Performed By: #### CBC #### [facility] [address] [place] [address] Dr. Tere Lomeli (RBC) [Mass/Vol]33.3 g/pRVwnewo57.9-35.2The [facility] Medical CenterComment on above:Performed By: #### CBC #### [facility] [address] [place] [address] Dr. Tere Lomeli (RBC) [Entitic vol]85.2 aWQrsvya74.0-99.0The [facility] CenterComment on above:Performed By: #### CBC #### [facility] [address] [place] [address] Dr. Tere Tsai #0.3 103/ulNormal0.3-0.8The [facility] Medical CenterComment on above:Performed By: #### CBC #### [facility] [address] [place] [address] Dr. Tere Hillocytes/100 WBC (Bld)6.8 %Normal1.7-12.0The [facility] Comment on above:Performed By: #### CBC #### [facility] [address] [place] [address] Dr. Tere Green #2.3 103/ulNormal1.4-6.5The [facility] Medical CenterComment on above:Performed By: #### CBC #### [facility] [address] [place] [address] Dr. Tere Velezutrophils/100 WBC (Bld)46.9 %Cjezvu08.0-75.0The [facility] Medical CenterComment on above:Performed By: #### CBC #### [facility] [address] [place] [address] Dr. Tere Hernandezlet mean volume (Bld) [Entitic vol]11.3 fLNormal9.5-13.5The [facility] Medical CenterComment on above:Performed By: #### CBC #### [facility] [address] [place] [address] Dr. Tere SotoPLT183 103/quBbkzlg985-492Vwh [facility] CenterComment on above: Performed By: #### CBC #### [facility] [address] [place] [address] Dr. Tere SotoRBC4.58 106/ulNormal4.20-5.40The [facility] CenterComment on above:Performed By: #### CBC #### [facility] [address] [place] [address] Dr. Tere SotoWBC4.8 103/ulNormal4.0-11.0The [facility] Medical CenterComment on above: Performed By: #### CBC #### [facility] [address] [place] [address] Dr. Tere Rodriguez-19 PCR (CVDTBH)on 44-61-9474NSOI-CoV-2 (COVID-19) RNA AHMET+probe Ql (Unsp spec)Not detectedNormalNOT DETECTEDThe [facility] Comment on above:Result Comment: This test is not yet approved or cleared by the [place] FDA. When there are no FDA-approved or cleared tests available, and other criteria are met, FDA can make tests available under an emergency access mechanism called an Emergency Use Authorization (EUA). The EUA for this test is supported by the [place] of Health and Human Service's (HHS's) declaration [...] consistent with SARS-CoV-2.Performed By: #### CVDTBH #### [facility] [address] [place] [address] Dr. Tere DarnellF CHEM 8 (BAS METB)on 99-44-3746Kykcx gap [Moles/Vol]13.6 mmol/LNormalThe [facility] CenterComment on above:Performed By: #### BMP #### [facility] [address] [address] [address] Tere SotoCalcium [Mass/Vol]9.6 mg/dLNormal8.5-10.1The [facility] Comment on above:Performed By: #### BMP #### [facility] [address] [address] [address] Tere SotoChloride [Moles/Vol]103 mmol/TConbdc24-333Agb [facility] Comment on above:Performed By: #### BMP #### [facility] [address] [place] [address] Dr. Tere SotoCO2 [Moles/Vol]28.9 mmol/XClpajs94.0-32.0The [facility] Comment on above:Performed By: #### BMP #### [facility] [address] [address] [address] Tere SotoCreatinine [Mass/Vol]1.25 mg/dLCritically high0.55-1.02The [facility] CenterComment on above:Performed By: #### BMP #### [facility] [address] [place] [address] Dr. Carranza ChangEGFR-AF RIHBOCKX71 mL/min/1.93p8Uagysgkhxw low>=60The [facility] CenterComment on above:Performed By: #### BMP #### [facility] [address] [place] [address] Dr. Tere MendezGFR-NON AF RBYXAMYZ79 mL/min/1.08m2Ekshcpspey low>=60The [facility] CenterComment on above:Performed By: #### BMP #### [facility] [address] [place] [address] Dr. Tere SotoGlucose [Mass/Vol]121 mg/dLCritically ubkc76-402Hjp [facility] CenterComment on above:Performed By: #### BMP #### [facility] [address] [address] [address] Tere SotoPotassium [Moles/Vol]4.5 mmol/LNormal3.5-5.1The [facility] Comment on above:Performed By: #### BMP #### [facility] [address] [address] [address] Tere SotoSodium [Moles/Vol]141 mmol/YSavyrp477-800Ryl [facility] Comment on above:Performed By: #### BMP #### [facility] [address] [address] [address] Tere SotoUrea nitrogen [Mass/Vol]43.0 mg/dLCritically high7.0-18.0The [facility] CenterComment on above:Performed By: #### BMP #### [facility] [address] [address] [address] Tere SotoUrea nitrogen/Creatinine [Mass ratio]34.4 mg/mgNoMain Campus Medical Centere [facility] CenterComment on above:Performed By: #### BMP #### [facility] [address] [address] [address] Tere HumphriesIMEmarisela 81-42-3116NUQ Coag (PPP) [Relative time]{INR}NormalThe [facility] CenterComment on above:Performed By: #### PT, PTT ####[facility] [address] [place] [address]Dr. Tere Seaman GUIDELINESSEE BELOWMiami Valley HospitalComment on above:Result Comment: DESIRED INR: 2.0 - 3.0 CONDITIONS NOT LISTED BELOW 2.5 - 3.5 FOR PROSTHETIC HEART VALVE REPLACEMENT 2.5 - 3.5 RECURRENT THROMBOSISPerformed By: #### PT, PTT ####[facility] [address] [place] [address]Dr. Tere SotoPT Coag (PPP) [Time]9.8 sNormal9.0-11.6The [facility] CenterComment on above:Performed By: #### PT, PTT ####[facility] [address] [address]Dr. Tere Cartagena 72-49-5164pMBM Coag (Bld) [Time]26.5 wWmlbbp27.3-36.2Grant HospitalComment on above:Performed By: #### PT, PTT ####[facility] [address] [place], [place] [address]QnDerek Carranza ChangCT FOOT LT WO CONon 24-11-2453DL FOOT LT WO CONEXAMINATION: CT FOOT LT [...] Electronically authenticated by: BRODERICK FLOR Date: 2022-11-26 16:36[facility] HospitalXR ANKLE LAURA MIN 3 VIEWSon 46-97-5781IU ANKLE LAURA MIN 3 VIEWS EXAMINATION: XR [...] Electronically authenticated by: BLANKA OLGUIN Date: 2022-11-13 06:32[facility] Systemice Visit (Cardiology)on 99-76-8731Glolrv-up visit Diagnoses/Problems Assessed CAD (coronary artery disease) (414.00) (I25.10) Essential hypertension (401.9) (I10) Hyperlipidemia (272.4) (E78.5) 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 (V45.82) (Z95.5) LAD February 2022 Diabetes mellitus (250.00) (E11.9) Obstructive sleep apnea syndrome (327.23) (G47.33) Never a smoker Class 2 obesity with body mass index (BMI) of 36.0 to 36.9 in adult (278.00,V85.36) (E66.9,Z68.36) 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) Orders CAD (coronary artery [...] Aminotransferase, Serum; Status:Active - Retrospective Authorization; Requested for:[id number] 09:18AM; AST; Status:Active - Retrospective Authorization; Requested for:10Feb2023 09:18AM; Lipid Panel; Status:Active - Retrospective Authorization; Requested for:[id number] 09:18AM; Class 2 obesity with body mass index (BMI) of 36.0 to 36.9 in adult Healthy Weight Tips; Status:Complete - Retrospective Authorization; Done: [id number] Some eating tips that can help you lose weight.; Status:Complete - Retrospective Authorization; Done: [id number] SocHx: Never a smoker Tobacco Use Screening; Status:Complete; Done: 39Sxj0089 Patient Instructions Please bring all medicines, vitamins, [...] Since her last visit she has developed Bqrfetu-Xuynv-Aiepq joint in the left foot and is planning surgery next month. Cardiac wiseshe has remained symptoms free. Recent lab data were reviewed from July 2022. LDL remains zesm698 mg/dL. She has been only on Lovaza [...] machine patient has been compliant with it. 7?Nipyfia-Hqgkx-Axuis joint in the left ankle and need [...] content not included)...NormalUH Touchworks Culture, MRSA Screenon 09-89-5792Hqebtpk, MRSA ScreenCulture, MRSA Screen-: Methicillin resistant Staph aureus not isolatedNormalSMiraVista Behavioral Health CenterHgb A1Con 44-50-3017OeI5w (Bld) [Mass fraction]7.1 %High4.0-5.6[place] General Hospitaledimentation Rateon 48-62-8846Mqipvvtvizsml Rate44 mm/Hr High0-20SMiraVista Behavioral Health CenterC-Reactive Proteinon 84-67-9045F-Reactive Protein0.4 mg/dLNormal0.0-0.4SMiraVista Behavioral Health CenterCBC With Platelet and Differentialon 33-03-5950Qaq Imm Granulocytes0.01 E9/LNormalFalmouth HospitalAbsolute Basophils0.05 E9/LNormal0.00-0.20SMiraV[facility] Behavioral Health CenterAbsolute Eosinophils0.15 E9/LNormal0.05-0.50[facility] Absolute Lymphocytes2.20 E9/LNormal1.50-4.00[facility] Absolute Monocytes0.35 E9/LNormal0.10-0.95[facility] HospitalAbsolute Neutrophils1.88 E9/LNormal1.80-7.30SMiraVista Behavioral Health CenterBasophils/100 WBC (Bld)1.1 %Normal0.0-2.0[facility] HospitalEosinophils/100 WBC (Bld)3.2 %Normal0.0-6.0F[facility]mouth HospitalHematocrit (Bld) [Volume fraction]36.9 %Ucutwq00.0-48.0Falmouth HospitalHemoglobin (Bld) [Mass/Vol]12.4 g/gLVsjmfh21.5-15.5SMiraVista Behavioral Health CenterImm Granulocytes 0.2 %Normal0.0-5.0Falmouth HospitalLymphocytes/100 WBC (Bld)47.4 % High20.0-42.0Falmouth HospitalMCH (RBC) [Entitic mass]29.7 pgNormal 26.0-35.0F[facility]mouth HospitalMCHC33.6 %Bavfku81.0-34.5SMiraVista Behavioral Health CenterMCV (RBC) [Entitic vol]88.3 xKOzrcqq96.0-99.9Falmouth HospitalMonocytes/100 WBC (Bld)7.5 %Normal2.0-12.0[facility] Neutrophils/100 WBC (Bld)40.6 %Low43.0-80.0F[facility]mouth HospitalPlatelet Doedt459 E9/EOkwjgv245-423ZszbyFalmouth HospitalPlatelet mean volume (Bld) [Entitic vol]11.7 fLNormal7.0-12.0[facility] HospitalRBC4.18 E12/LNormal3.50-5.50F[facility] HospitalRDW13.3 qUHtdstp16.5-15.0[facility] HospitalWBC4.6 E9/LNormal4.5-11.5[facility] Comprehensive Metabolic Panelon 78-31-7648Ranvlyb [Mass/Vol]4.3 g/dLNormal 3.5-5.2SMiraVista Behavioral Health CenterALP [Catalytic activity/Vol]71 U/LNormal 35-104Falmouth HospitalALT [Catalytic activity/Vol]12 U/LNormal0-32 [facility]mouth HospitalAnion gap [Moles/Vol]10 mmol/LNormal7-16SMiraVista Behavioral Health CenterAST [Catalytic activity/Vol]19 U/LNormal0-31Falmouth HospitalBilirubin [Mass/Vol]0.3 mg/dLNormal0.0-1.2SMiraVista Behavioral Health CenterCalcium [Mass/Vol]10.3 mg/dLHigh8.6-10.2SMiraVista Behavioral Health CenterChloride [Moles/Vol]103 mmol/QVjpamr36-786BmgwdFalmouth HospitalCO2 [Moles/Vol]27 mmol/OIsbakb83-22GocfhFalmouth HospitalCreatinine [Mass/Vol]1.2 mg/dLHigh0.5-1.0F[facility] HospitalGFR/1.73 sq M.predicted among non-blacks MDRD (S/P/Bld) [Vol rate/Area]51 mL/min/{1.73_m2} Normal>=60Falmouth HospitalComment on above:Result Comment: Pediatric calculator link [...] that affects renal tubular secretion.Glucose [Mass/Vol]111 mg/dLHigh 74-99F[facility]mouth HospitalPotassium [Moles/Vol]4.6 mmol/LNormal3.5-5.0 [facility] HospitalProtein [Mass/Vol]7.3 g/dLNormal6.4-8.3SBoston Children's Hospitalodium [Moles/Vol]140 mmol/RRimeeo567-067UwvprFalmouth HospitalUrea nitrogen [Mass/Vol]30 mg/dLHigh6-23SaEncompass Health Rehabilitation Hospital of New EnglandAlbumin [Mass/volume] in Serum or PlasmaOrdered By: Charan Casey on 67-18-6841Rthuikn [Mass/Vol]3.9 g/dL3.2-5.5FCincinnati Shriners Hospital Automated erythrocytes count in urine sediment (number/area)Ordered By: Elpidio Whipple on 38-76-0826CHX Auto (Urine sed) [#/Area]0-1 [HPF]0-4FCincinnati Shriners HospitalAutomated leukocytes count in urine sediment (number/area)Ordered By: Elpidio Whipple on 90-67-5387BVW Auto (Urine sed) [#/Area]None seen [HPF]0-4 [facility] HospitalBasophils Auto (Bld) [#/Vol]Ordered By: Charan Casey on 65-57-6458Akxrraeqh (Bld) [#/Vol]0.1 10*3/uL0.0-0.2FCincinnati Shriners HospitalBasophils/100 WBC Auto (Bld)Ordered By: Chaarn Casey on 08-13-2022 Basophils/100 WBC (Bld)1.0 %.[facility] HospitalBilirubin Test strip Ql (U)Ordered By: Elpidio Whipple on 95-78-5737Rbqgljcoj Ql (U)Negative NegativeHolzer HospitalCholesterol [Mass/volume] in Serum or PlasmaOrdered By: Charan Caesy on 40-92-9767Stpczxorbua [Mass/Vol]170 mg/fT487-690 [facility] HospitalComment on above:Chol less than 200 mg/dl low riskChol 201-239 mg/dl borderline riskChol 240 mg/dl and greater high risk Cholesterol in LDL Calc [Mass/Vol]Ordered By: Charan Casey on 08-13-2022 Cholesterol in LDL [Mass/Vol]101 mg/dL0-100[facility] Comment on above:LDL ATP III CLASSIFICATIONLDL less than 100 mg/dL OptimalLDL 100-129 mg/dL Near or above fcllzhpOOI361-673 mg/dL Borderline highLDL 160-189 mg/dL HighLDL greater than 189 mg/dL Very highCholesterol in VLDL Calc [Mass/Vol]Ordered By: Charan Casey on 07-42-6191Loyoyssknot in VLDL [Mass/Vol]41 mg/dLHolzer HospitalColor Auto (U)Ordered By: Elpidio Whipple on 77-87-8203Aohne (U)Dark yellowYellowHolzer HospitalCreatinine [Mass/volume] in UrineOrdered By: Elpidio Whipple on 83-03-2256Tnzbuqleki (U) [Mass/Vol]127.6 mg/dLHolzer HospitalComment on above:No reference range establishedCreatinine and Glomerular filtration rate.predicted panel (S/P/Bld)Ordered By: Charan Casey on 52-72-3728Kkkfcyhxhi [Mass/Vol]1.41 mg/dL0.44-1.03[facility] HospitalEosinophils Auto (Bld) [#/Vol] Ordered By: Charan Casey on 17-90-2344Ybevjgsbdaw (Bld) [#/Vol]0.1 10*3/uL0.0-0.45 [facility] HospitalEosinophils/100 WBC Auto (Bld)Ordered By: Charan Casey on 20-35-9691Nvayqqroyrx/100 WBC (Bld)1.7 %.[facility] HospitalErythrocyte distribution width Auto (RBC) [Ratio]Ordered By: Charan Casey on 77-93-6957Qmbetbnxbiq distribution width (RBC) [Ratio]13.1 %11.9-15.3FCincinnati Shriners HospitalEstimated glomerular filtration rate (GFR) non- AmericanOrdered By: Charan Casey on 07-38-2002AMY/1.73 sq M.predicted among non- blacks MDRD (S/P/Bld) [Vol rate/Area]38 mL/MinHolzer Hospital Globulin Calc (S) [Mass/Vol]Ordered By: Charan Casey on 89-14-5886Oysufabl (S) [Mass/Vol]3.1 g/dLHolzer HospitalHematocrit Auto (Bld) [Volume fraction]Ordered By: Charan Casey on 66-83-4846Hmfeiupesc (Bld) [Volume fraction] 38.0 %34.0-46.4FCincinnati Shriners HospitalHemoglobin [Mass/volume] in BloodOrdered By: Charan Casey on 14-28-9312Erpmzdiwny (Bld) [Mass/Vol]12.6 g/dL 11.8-15.4FCincinnati Shriners HospitalKetones Auto test strip (U) [Mass/Vol] Ordered By: Elpidio Sole on 33-49-0363Sowhqqs (U) [Mass/Vol]NegativeNegative [facility] HospitalLaboratory - Chemistry and Chemistry - challengeOrdered By: Elpidio Sole on 33-89-1391Lwwbhyflq [Mass/Vol]1.9 mg/dL 1.6-2.6FCincinnati Shriners HospitalLaboratory - Hematology and Cell counts Ordered By: Charan Casey on 83-35-3429Viousiuus RBC/100 WBC (Bld) [Ratio]0.0 % 0-0.5FCincinnati Shriners HospitalLabirrigontory - UrinalysisOrdered By: Elpidio Whipple on 62-49-6259Jgmxtsj casts LM Ql (Urine sed)0-8 [LPF]0-8[facility] HospitalLeukocytes [#/volume] in Blood by Automated countOrdered By: Charan Casey on 79-05-2501JGL (Bld) [#/Vol]8.2 10*3/uL4.5-11.0Hol[facility] HospitalLymphocytes Auto (Bld) [#/Vol]Ordered By: Charan Casey on 08-13-2022 Lymphocytes (Bld) [#/Vol]2.8 10*3/uL1.00-4.8[facility] Lymphocytes/100 WBC Auto (Bld)Ordered By: Charan Casey on 08-13-2022 Lymphocytes/100 WBC (Bld)34.1 %.[facility] Auto (RBC) [Entitic mass]Ordered By: Charan Casey on 49-27-9260POK (RBC) [Entitic mass]28.5 pg24.7-34.3FOhioHealth Arthur G.H. Bing, MD, Cancer CenterHC Auto (RBC) [Mass/Vol]Ordered By: Charan Casey on 08-14-2933BWIB (RBC) [Mass/Vol]33.2 g/dL32.0-35.0[facility] HospitalMCV Auto (RBC) [Entitic vol]Ordered By: Charan Casye on 50-05-9763QIB (RBC) [Entitic vol]85.8 zN39-305OqyjziemzHolzer Hospital Monocytes Auto (Bld) [#/Vol]Ordered By: Charan Casey on 97-13-7340Szjaqsari (Bld) [#/Vol]0.5 10*3/uL0.0-0.8[facility] HospitalMonocytes/100 WBC Auto (Bld)Ordered By: Charan Casey on 58-71-0107Mgrbtgohb/100 WBC (Bld)6.4 %.[facility] HospitalNeutrophils Auto (Bld) [#/Vol]Ordered By: Charan Casey on 08-26-3660Glxqbqrcjkl (Bld) [#/Vol]4.7 10*3/uL1.8-7.7FCincinnati Shriners HospitalNeutrophils/100 WBC Auto (Bld)Ordered By: Charan Casey on 08-13-2022 Neutrophils/100 WBC (Bld)56.8 %.[facility] HospitalNitrite Test strip Ql (U)Ordered By: Elpidio Whipple on 54-57-7266Wndhymq Ql (U)NegativeNegative [facility] HospitalNo Panel InformationOrdered By: Charan Casey on 90-18-977877309804-Utbsysg Vitamin D Total37.8 ng/mD41-206BkmszoejdHolzer HospitalComment on above:VITAMIN D STATUS 25(OH)VITAMIN D RANGE (ng/mL) Deficient <20 Insufficient 20 to <05Asvjcsucgv48 to 100Reference: Nayeli MF,Hannah NC, Jose GILBERT, et al. Evaluation,treatment, and prevention of vitamin D deficiency; an Endocrine Society clinical practice guideline. JCEM. 2010; 96 (7):1911-30.Estimated GFR ()46 mL/MinHolzer HospitalComment on above:GFR estimated reference range: According to KDOQI guidelines, <60 ml/min/1.73m2 is sufficient todiagnose a patient with chronic kidney disease.Pharmacy Creatinine Clearance (ChemN/AFCincinnati Shriners HospitalPlatelet mean volume Auto (Bld) [Entitic vol]Ordered By: Charan Casey on 18-51-7443Etrnzzpf mean volume (Bld) [Entitic vol]9.2 fL6.3-10.7FCincinnati Shriners HospitalPlatelets Auto (Bld) [#/Vol]Ordered By: Charan Casey on 67-04-5316Crbgkqmjo (Bld) [#/Vol]272 10*3/zZ737-863RhpyjgptiHolzer HospitalProtein Auto test strip (U) [Mass/Vol]Ordered By: Elpidio Whipple on 85-09-6694Uxcmate (U) [Mass/Vol]NegativeNegativeHolzer HospitalProtein [Mass/volume] in Serum or PlasmaOrdered By: Charan Casey on 35-61-9171Iifsliq [Mass/Vol]7.0 g/dL6.1-7.9[facility] Protein [Mass/volume] in UrineOrdered By: Elpidio Whipple on 85-22-3335Lqfadml (U) [Mass/Vol]7 mg/dL0-9Hol[facility] HospitalRBC Auto (Bld) [#/Vol] Ordered By: Charan Casey on 99-30-6231BXK (Bld) [#/Vol]4.43 10*6/uL3.60-5.00 OhioHealtherum or plasma alanine aminotransferase measurement without P-5'-P (enzymatic activiOrdered By: Charan Casey on 08-13-2022 ALT No additional P-5'-P [Catalytic activity/Vol]12 U/K64-47MxfkzxkgpOhioHealtherum or plasma albumin/globulin mass ratioOrdered By: Charan Casey on 78-32-1812Zndlevq/Globulin [Mass ratio]1.3 {ratio}OhioHealtherum or plasma alkaline phosphatase measurement (enzymatic activity/volume)Ordered By: Charan Casey on 33-55-2803HFG [Catalytic activity/Vol] 79 U/N89-14HxdrhlkfcOhioHealtherum or plasma anion gap determinationOrdered By: Charan Casey on 69-49-8383Oxjhg gap [Moles/Vol]15.4 mmol/L6.0-15.0OhioHealtherum or plasma aspartate aminotransferase measurement (enzymatic activity/volume)Ordered By: Charan Casey on 20-75-6779FMB [Catalytic activity/Vol]22 U/K95-26YomoxmdpdOhioHealtherum or plasma calcium measurement (mass/volume)Ordered By: Charan Casey on 28-53-9124Oodbobn [Mass/Vol]10.1 mg/dL8.2-10.2FCincinnati Shriners Hospital Serum or plasma chloride measurement (moles/volume)Ordered By: Charan Casey on 58-26-5541Adziqujv [Moles/Vol]102 mmol/Z65-815MksrknnizHolzer Hospital Serum or plasma glucose measurement (mass/volume)Ordered By: Charan Caesy on 71-18-0487Obobsmr [Mass/Vol]114 mg/qD47-628CcluaicuaHolzer Hospital Comment on above:ADA recommended reference rangeRandom Glucose Reference Range is dependent on time and content of last meal. Glucose of more than 200 mg/dL in a nonstressed, ambulatory subject supports the diagnosisof Diabetes Mellitus. Serum or plasma high density lipoprotein (HDL) cholesterol measurementOrdered By: Charan Casey on 51-90-6671Dbsfeslsmwl in HDL [Mass/Vol]28 mg/dX97-07ZhgiqkijnHolzer HospitalComment on above:HDL CHOL ATP-III CLASSIFICATION Cardiovascular RiskHDL > or equal to 60 mg/dL LOWHDL < 40 mg/dL HIGHSerum or plasma intact parathyroid hormone measurement (mass/volume)Ordered By: Elpidio Whipple on 38-28-3650Aqyuioyszz.intact [Mass/Vol]87.0 pg/uS99-93TrsdlokwkOhioHealtherum or plasma potassium measurement (moles/volume)Ordered By: Charan Casey on 00-81-5028Npryhkkvr [Moles/Vol]4.9 mmol/L3.5-5.1FDelaware County Hospitalerum or plasma sodium measurement (moles/volume)Ordered By: Charan Casey on 77-08-4808Drqcxr [Moles/Vol]138 mmol/O202-132MgjhnbbfoOhioHealtherum or plasma total bilirubin measurement (mass/volume)Ordered By: Charan Casey on 13-24-4608Vvfmuhyfk [Mass/Vol]0.4 mg/dL0.3-1.2FDelaware County Hospitalerum or plasma total carbon dioxide measurement (moles/volume)Ordered By: Charan Casey on 67-69-4204IL9 [Moles/Vol]25.5 mmol/L 22.0-30.0OhioHealtherum or plasma total cholesterol/high density lipoprotein (HDL) cholesterol mass ratOrdered By: Charan Casey on 25-09-7488Peqakswxofq.total/Cholesterol in HDL [Mass ratio]6.1 {ratio}<5.0 OhioHealtherum or plasma urea nitrogen measurement (mass/volume)Ordered By: Charan Casey on 98-16-6291Nrmr nitrogen [Mass/Vol]45 mg/dL9-23OhioHealtherum or plasma uric acid measurement (mass/volume)Ordered By: Charan Casey on 47-15-6680Fqvrd [Mass/Vol]7.9 mg/dL 2.6-7.2FDelaware County Hospitalpecific gravity Auto test strip (U) [Rel density]Ordered By: Elpidio Whipple on 71-87-8766Ugvxifpa gravity (U) [Rel density]1.0201.001-1.030OhioHealthquamous epithelial cells detection in urine sediment by light microscopyOrdered By: Elpidio Whipple on 33-13-5558Iorkspepyd cells.squamous LM Ql (Urine sed)0-1 [HPF]0-2FCincinnati Shriners HospitalTS DL <= 0.005 mIU/L QnOrdered By: Charan Casey on 26-87-8172CPI Qn1.91 m[IU]/L0.45-5.33[facility] Triglyceride [Mass/volume] in Serum or PlasmaOrdered By: Charan Casey on 44-53-7976Wdajcncnpzps [Mass/Vol]207 mg/yS63-482RfzfksaxwHolzer HospitalComment on above:TRIG ATP III CLASSIFICATIONTRIG less than 150 mg/dL NormalTRIG 150-199 mg/dL Borderline highTRIG 200-500 mg/dL High TRIG greater than 500 mg/dL Very highStandard traceable to the Center for Disease Conrtrol and Prevention (CDC) test method.Urine bacteria detection by automated method Ordered By: Elpidio Whipple on 50-22-3583Uapxsqgl Auto Ql (U)None seenNone Seen [facility]zer HospitalUrine clarity by refractometry automatedOrdered By: Elpidio Whipple on 06-44-7426Dkjbnvs Refractometry automated (U)ClearClear [facility]zer HospitalUrine glucose measurement by automated test strip (mass/volume)Ordered By: Elpidio Whipple on 84-97-8622Lkcesna Auto test strip (U) [Mass/Vol]Normal mg/dLNormalHolzer HospitalUrine hemoglobin detection by automated test stripOrdered By: Elpidio Whipple on 28-08-0546Foowfbeupb Auto test strip Ql (U)NegativeNegativeHolzer HospitalUrine leukocyte esterase detection by automated test stripOrdered By: Elpidio Whipple on 03-38-1545Diozveasw esterase Auto test strip Ql (U)Negative NegativeHolzer HospitalUrine protein/creatinine ratioOrdered By: Elpidio Whipple on 18-97-9257Lblqzra/Creatinine (U) [Ratio]55 mg/g{Cre}0-200 [facility]zer HospitalUrobilinogen Auto test strip (U) [Mass/Vol] Ordered By: Elpidio Whipple on 27-46-2960Ppippokzcsrh (U) [Mass/Vol]Normal mg/dL NormalHolzer HospitalpH Auto test strip (U)Ordered By: Elpidio Whipple on 48-33-3334yC (U)5.0 [pH]5.0-9.0[facility]zer HospitalTobacco Screening.on 52-95-9542Ubvlj depression screening assessmentNo-[facility] [employer] 250 DO Work Phone: Fall risk assessmenta) No falls within the last year -[facility] [employer] 250 DO Work Phone: Tobacco use status CPHSb) NoMP-[facility] [employer] 250 DO Work Phone: Laboratory - Chemistry and Chemistry - challengeon 06-36-7947Cucrsurdbwf [Mass/Vol]218\S\218above high qjrmclluf111-124WI-Lchuz [facility] 250 DO Work Phone: Comment on above:Chol less than 200 mg/dl low risk Chol 201-239 mg/dl borderline risk Chol 240 mg/dl and greater high risk Cholesterol in LDL [Mass/Vol]145\S\145above high oqyuolsdn9-843CE-Tslaq [facility] 250 DO Work Phone: Comment on above:LDL ATP III CLASSIFICATION LDL less than 100 mg/dL Optimal LDL 100-129 mg/dL Near or above optimal LDL 130-159 mg/dL Borderline high LDL 160-189 mg/dL High LDL greater than 189 mg/dL Very high Laboratory - Microbiology and Antimicrobial susceptibilityon 03-25-2022 SARS-CoV-2 (COVID-19) RNA AHMET+probe Ql (Unsp spec)MP-[facility] 250 DO Work Phone: No Panel Informationon .2\S\40.2Normal.MP- [facility] 250 DO Work Phone: [phone]\S\9.6Hgkotc8.3-10.7MP-[facility] 250 DO Work Phone: [phone]\S\912Sbvjei884-553IT-Qcngh [facility] 250 DO Work Phone: [phone]\S\13.5Okuljo41.9-15.3MP-[facility] 250 DO Work Phone: [phone]\S\34.5Yrtjvs50.0-35.0MP-[facility] 250 DO Work Phone: [phone]\S\29.1Rxpvqb13.7-34.3MP-[facility] 250 DO Work Phone: [phone]\S\2.1Nbtyhf1.8-7.7MP-[facility] 250 DO Work Phone: [phone]\S\0.9Zpofza2.0-0.45MP-[facility] 250 DO Work Phone: [phone]\S\0.6Normal.MP-[facility] 250 DO Work Phone: [phone]\S\2.9Normal.MP-[facility] 250 DO Work Phone: [phone]\S\7.1Normal.MP-[facility] 250 DO Work Phone: [phone]\S\49.2Normal.MP-[facility] 250 DO Work Phone: [phone]\S\0.2Mkruvf5.0-0.2MP-[facility] 250 DO Work Phone: [phone] on above:PERFORMED BY:[place] [address] [place], [place] [phone] MEDICAL DIRECTORJE SHELLEY M.D.0.4\S\0.2Dpstoz9.0-0.8MP-[facility] 250 DO Work Phone: [phone]\S\2.1Hdtxku0.00-4.8MP-[facility] 250 DO Work Phone: [phone]\S\85.2Twypgd30-598CZ-Llcvy [facility] 250 DO Work Phone: [phone]\S\39.1Ppknyf08.0-46.4MP-[facility] 250 DO Work Phone: [phone]\S\13.6Ojrlwg63.8-15.4MP-[facility] 250 DO Work Phone: [phone]\S\4.31Czcicj8.60-5.00MP-[facility] 250 DO Work Phone: [phone]\S\5.1Uxiway1.8-11.6MP-[facility] 250 DO Work Phone: [phone]\S\33.5Dfsfal68.1-36.5MP-[facility] 250 DO Work Phone: [phone] on above:PERFORMED BY:[facility] [place], [place] [id number] MEDICAL DIRECTORJE SHELLEY M.D.1.0\S\1.0NormalMP-[facility] 250 DO Work Phone: Comment [...] patients with mechanical heart valves: 3 - 4.510.9\S\10.5Owoypx7.0-12.9MP-[facility] 250 DO Work Phone: [phone]\S\26.6Slyfac17.0-30.0MP-[facility] 250 DO Work Phone: [phone]\S\893Dybesm32-405TX-Qiqkb [facility] 250 DO Work Phone: [phone]\S\4.3Dfozdi1.5-5.1MP-[facility] 250 DO Work Phone: [phone]\S\939Lewkvx630-240QG-Kcuoa [facility] 250 DO Work Phone: [phone]\S\87Pktzgm6-36TR-Kofsl [facility] 250 DO Work Phone: [phone]\S\54NormalMP-[facility] 250 DO Work Phone: Comment on above:GFR estimated reference range: According to KDOQI guidelines, <60 ml/min/1.73m2 is sufficient todiagnose a patient with chronic kidney disease.45\S\45NormalMP-[facility] 250 DO Work Phone: [phone]\S\1.22above high threshold0.44-1.03MP-[facility] 250 DO Work Phone: [phone]\S\6.4Normal<5.0MP-[facility] 250 DO Work Phone: Comment on above:PERFORMED BY:[place] [address] [place], [place] [phone] MEDICAL DIRECTORJE SHELLEY M.D.39\S\39NormalMP-[facility] 250 DO Work Phone: [phone]\S\197above high epovsrpcf82-428JW-Yzfqr [facility] 250 DO Work Phone: Comment on above:TRIG ATP III CLASSIFICATION TRIG less than 150 mg/dL Normal TRIG 150-199 mg/dL Borderline high BIGS862-175 mg/dL High TRIG greater than 500 mg/dL Very high Standard traceable to the Center for Disease Conrtrol and Prevention (CDC) test method.34\S\34below low threshold 11-30EN-Tania [facility] 250 DO Work Phone: Comment on above:HDL CHOL ATP-III CLASSIFICATION Cardiovascular Risk HDL > or equal to 60 mg/dL LOW HDL < 40 mg/dL HIGHNegative NormalNegative-[facility] 250 DO Work Phone: Comment on above:This is a duplicate Ashley SARS Antigen (PRISCILA) result to be used for statistical tracking purpose only.PERFORMED BY:[place] [address] [place], [place] [phone] MEDICAL BRANT SHELLEY M.D.CT Angio Coronary Arteries with Heart Flowon 65-59-9346PN Angio Coronary Arteries with Heart [facility] 250 DO Work Phone: th CTA CORONARY ART WITH HEARTFLOW IF SCORE >30%.on 71-52-8487MB CTA CORONARY ART WITH HEARTFLOW IF SCORE [...] R07.9: Chest pain. COMPARISON: None. ACCESSION NUMBER(S): [id number] ORDERING CLINICIAN: ROSALINDA TORRES TECHNIQUE: Using multi-detector [...] AORTIC VALVE: The (more content not included)...NormalUH Lakewood Ranch Medical CenterTobacco Screening.on 22-25-3027Urzwi depression screening assessmentNo-[facility] 250 DO Work Phone: Fall risk assessmenta) No falls within the last year -[facility] 250 DO Work Phone: Tobacco use status CPHSb) NoMP-[facility] 250 DO Work Phone: SURGICAL PATHOLOGYon 57-05-9603QUUYXXDY PATHOLOGY Specimen #: [id number] Physician: REUBEN CRAVEN M.D. FINAL DIAGNOSIS1. 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 Skin,left upper arm, shave biopsy ([id number]; 07/20/2018) - Intradermal nevus, neurotized (see comment).AF/CE/dss 07/26/2018 COMMENTMany thanks for involving us in this case of two melanocytic lesions fromthe right posterior shoulder and left upper arm of a 57-year-old woman. 1. Histologic sections demonstrate a junctional melanocytic proliferationwith bridging of adjacent rete ridges, papillary dermalfibrosis andunderlying sparse lymphocytic inflammation and melanoderma. An immunohistochemical stain for MART-1 and S[facility]. These stains highlight a [...] consultation. Please call theDermatopathology Consultation Service at [phone] with questions or ifadditional follow-up information becomes available regarding this patient.This case was reviewed in conjunction with the Dermatopathology Fellow, Dr.Carly Marija MD.Donald Zavaleta M.D. PhD(Electronic Signature) SPECIMEN SUBMITTEDA: 11 SLIDES ([id number]) CLINICAL DATANone provided. of Report: 07/26/2018Date of Procedure: 07/23/2018Dateof Receipt: 07/23/2018Submitted by: REUBEN CRAVEN M.D.Location: G31Eemdyefnhx interpretation performed at [facility], [address] [place] [address].NormalRiverview Health Institute Reference LabComment on above:Performed By: #### S ####See report for performing lab information. Vital Signs Date TimeVital SignValuePerforming SdfspmbdsBmigwstg98-67-3686 08:040Body .6 cmAllison PetMicropoint Technologies DO Work Phone: [facility] Msmqesnbkt22-24-3803 08:13040Body temperature 97.5 [degF]Shaina Petznick DO Work Phone: [facility] Ayupghsvui30-22-3553 08:040Diastolic blood byzuyuvi60 mm[Hg]Shaina Petznick DO Work Phone: [facility] [id number] 08:13040Heart rate65 /min Shaina Petznick DO Work Phone: noMS Tdqjkmanvq92-70-4748 08:136192KqK2% (BldA) [Mass fraction]98 %Shaina PetMicropoint Technologies DO Work Phone: noUniversity HospitalFlvofhzlsj29-60-5198 08:13-0400Systolic blood mm[Hg]Shaina Petznick DO Work Phone: noUniversity HospitalZfydlxpzcy42-37-0654 08:20-0400Body temperature 97.8 [degF]Charan Casey DO Work Phone: [facility]08-13-2025 08:20-0400 Diastolic blood mm[Hg]Charan Casey DO Work Phone: [facility]08-13-2025 08:20-0400 Heart rate70 /minCharan Casey DO Work Phone: [facility]08-13-2025 08:20-0400 Respiratory rate16 /minCharan Casey DO Work Phone: [facility]08-13-2025 08:20-0400 SaO2% (BldA) [Mass fraction]97 %Charan Casey DO Work Phone: [facility]08-13-2025 08:20-0400 Systolic blood mm[Hg]Charan Casey DO Work Phone: [facility]06-16-2025 10:29-0400 Body srdlid209.6 cmAllison Petznick DO Work Phone: noUniversity HospitalOumyshyfff92-01-1352 10:29-0400Body mass index (BMI) [Ratio]35.86 kg/z8Chxbaum Petznick DO Work Phone: noUniversity HospitalHqnzrbzayh72-82-7639 10:29-0400Body temperature 97.2 [degF]Shaina Petznick DO Work Phone: NOUniversity HospitalVmbzyrfnwe83-78-6503 10:29-0400Body .79 kgAllison Petznick DO Work Phone: noUniversity HospitalDlhseroocm91-21-6127 10:29-0400Diastolic blood iatslxtu20 mm[Hg]Shaina Petznick DO Work Phone: noUniversity HospitalUnvekydycz52-68-8973 10:29-0400Heart rate67 /min Shaina Munroe DO Work Phone: noUniversity HospitalOhvnmpfolv67-88-4515 10:29-2398OcG7% (BldA) [Mass fraction]98 %Shaina Paredesick DO Work Phone: noUniversity HospitalHcsklhuogm38-70-1502 10:290400Systolic blood tjhikcvo305 mm[Hg]Shaina Paredesick DO Work Phone: noUniversity HospitalOuaclthzwd50-96-8597 08:09-0400Body jkskum150.18 cmCharan Casey DO Work Phone: [address] [place], [place] 4512104-07-2025 08:09-0400 Body mass index (BMI) [Ratio]35.4 kg/j7SyfgfCharan Masseys DO Work Phone: 1(397)7-[address] [place], [place] 4512104-07-2025 08:09-0400 Body .51 kgCharan Masseys DO Work Phone: [address] [place], [place] 4512104-07-2025 08:09-0400 Respiratory rate16 /minCharan Masseys DO Work Phone: 3([phone]04-07-2025 08:09-0400 SaO2% (BldA) [Mass fraction]98 %Charan Casey DO Work Phone: [facility]03-20-2025 09:35-0400 Body uramzl747.18 cmCharan Masseys DO Work Phone: 9(455)468-[address] [place], [place] 4744903-20-2025 09:35-0400 Body mass index (BMI) [Ratio]36.5 kg/m9MfvinCharan Masseys DO Work Phone: 8(757)9-23[facility]03-20-2025 09:35-0400 Body ielfcs271.68 kgCharan Masseys DO Work Phone: 0(583)2-[address] [place], [place] 4744902-10-2025 10:01-0500 Body .18 cmCharan Casey DO Work Phone: [facility]02-10-2025 10:01-0500 Body mass index (BMI) [Ratio]36.5 kg/h9HaghvCharan Masseys DO Work Phone: [facility]02-10-2025 10:01-0500 Body evvbyp917.68 kgCharan Masseys DO Work Phone: [facility]02-10-2025 10:01-0500 Diastolic blood sinccfwc65 mm[Hg]Charan Casey DO Work Phone: 1(761)069-[address] [place], [place] 4744902-10-2025 10:01-0500 Heart rate69 /minCharan Casey DO Work Phone: 1(447)3[facility]24[facility]02-10-2025 10:01-0500 Respiratory rate16 /minCharan Casey DO Work Phone: 1(164)[phone]02-10-2025 10:01-0500 SaO2% (BldA) [Mass fraction]98 %Charan Casey DO Work Phone: [facility]02-10-2025 10:01-0500 Systolic blood mm[Hg]Charan Masseys DO Work Phone: [phone]01-10-2025 10:39-0500 Body jyuhqu466.18 cmCharan Masseys DO Work Phone: 1([phone]01-10-2025 10:39-0500 Body mass index (BMI) [Ratio]36.1 kg/b9BbaeoCharan Masseys DO Work Phone: 0([phone]01-10-2025 10:39-0500 Body qsxozcnrbjn10.4 [degF]Charan Masseys DO Work Phone: [phone]01-10-2025 10:39-0500 Body wtfpty046.77 kgCharan Masseys DO Work Phone: [facility]01-10-2025 10:39-0500 Diastolic blood rodghtpt56 mm[Hg]Charan Brysons DO Work Phone: [facility]01-10-2025 10:39-0500 Heart rate78 /minYeisonan Brysons DO Work Phone: [facility]01-10-2025 10:39-0500 Respiratory rate16 /minBryan Kuns DO Work Phone: [facility]01-10-2025 10:39-0500 SaO2% (BldA) [Mass fraction]97 %Charan Brysons DO Work Phone: [facility]01-10-2025 10:39-0500 Systolic blood pxpzgnpu251 mm[Hg]Charan Brysons DO Work Phone: [address] [place], [place] 4512112-03-2024 09:30-0500 Diastolic blood nbtyxdaz75 mm[Hg]Charan Brysons DO Work Phone: [address] [place], [place] 4512112-03-2024 09:30-0500 Heart rate65 /minCharan Masseys DO Work Phone: [facility]12-03-2024 09:30-0500 Respiratory rate16 /minYeisonan Brysons DO Work Phone: [facility]12-03-2024 09:30-0500 SaO2% (BldA) [Mass fraction]99 %Charan Brysons DO Work Phone: [facility]12-03-2024 09:30-0500 Systolic blood bvvsuxar334 mm[Hg]Charan Brysons DO Work Phone: [facility]12-03-2024 08:48-0500 Inhaled oxygen flow rate3 L/minYeisonan Brysons DO Work Phone: [address] [place], [place] 4512112-03-2024 07:38-0500 Body yvssaw050.18 cmBryan Kuns DO Work Phone: [facility]12-03-2024 07:38-0500 Body .86 kgBryheather Kuns DO Work Phone: [facility]11-20-2024 08:13-0500 Body .88 kgBryheather Masseys DO Work Phone: [facility]11-18-2024 13:12-0500 Body bystsj676.6 cmAllison Petznick DO Work Phone: 1(254)338-[address] [place], [place] [address]Naexiljghg20-62-7217 13:12-0500Body mass index (BMI) [Ratio]39.06 kg/c6Wzinuqs Petznick DO Work Phone: 1(171)[facility] [place], [place] [address]Dzwxzxgfly25-42-8217 13:12-0500Body temperature 97.3 [degF]Shaina Petznick DO Work Phone: 7(971)[facility] [place], [place] [address]Jpaggofzeh15-54-4053 13:12-0500Body qjihuv253.77 kgAllison Petznick DO Work Phone: 1(433)[facility] [place], [place] [address]Mgrjyqgkwa66-35-1169 13:12-0500Diastolic blood pdnacqxw21 mm[Hg]Shaina Petznick DO Work Phone: 7(270)355-[address] [place], [place] [address]Hdjxihhrcm70-36-0121 13:12-0500Heart rate78 /min Shaina Petznick DO Work Phone: 1(038)347-[address] [place], [place] [address]Trjqhzflqa44-30-4382 13:12-9195WuZ0% (BldA) [Mass fraction]96 %Shaina Petznick DO Work Phone: 1(787)934-[address] [place], [place] [address]Vhpdmfxkog37-16-2838 13:12-0500Systolic blood nhgfzsia489 mm[Hg]Shaina Petznick DO Work Phone: 4(857)638-[address] [place], [place] [address]Zdtcwjrbdp64-92-5221 10:28-0400Diastolic blood lkzzqbaa84 mm[Hg]DO Charan Casey Work Phone: [facility]10-22-2024 10:28-0400 Heart rate68 /minDO Charan Brysonbryn Work Phone: [facility]10-22-2024 10:28-0400 Respiratory rate16 /GeovanyO Charan Casey Work Phone: [facility]10-22-2024 10:28-0400 SaO2% (BldA) [Mass fraction]95 %DO Charan Casey Work Phone: [facility]10-22-2024 10:28-0400 Systolic blood arfldpgp346 mm[Hg]DO Charan Casey Work Phone: [address] [place], [place] 4512110-22-2024 09:50-0400 Inhaled oxygen flow rate3 L/Dean Casey Work Phone: 1(133)[address]10-22-2024 08:38-0400 Body .18 cmDO Charan Casey Work Phone: [address] [place], [place] 4512110-22-2024 08:38-0400 Body .95 kgDO Charan Casey Work Phone: [address] [place], [place] 4512109-26-2024 08:35-0400 Body .2 cmRosalinda Torres MD Work Phone: [facility]09-26-2024 08:35-0400 Body mass index (BMI) [Ratio]37.75 kg/h0JbpifpRosalinda Torres MD Work Phone: 8(770)484-[address] [place], [place] 2073509-26-2024 08:35-0400 Body ndumhj287.32 kgRosalinda Torres MD Work Phone: 3([phone])925-10[facility]09-26-2024 08:35-0400 Diastolic blood dgczxwne83 mm[Hg]Rosalinda Torres MD Work Phone: 6(291)987-[address] [place], [place] 2073509-26-2024 08:35-0400 Heart rate80 /minRosalinda Torres MD Work Phone: [facility]09-26-2024 08:35-0400 Systolic blood opkkqkmt639 mm[Hg]Rosalinda Torres MD Work Phone: [facility]07-10-2024 15:44-0400 Body mbxrgy943.18 cmDO Charan Casey Work Phone: [facility]07-10-2024 15:44-0400 Body mass index (BMI) [Ratio]37 kg/m2DO Charan Casey Work Phone: [facility]07-10-2024 15:44-0400 Body .5 kgDO Charan Casey Work Phone: [facility]07-10-2024 15:44-0400 Diastolic blood bywsoqbb65 mm[Hg]DO Charan Casey Work Phone: [facility]07-10-2024 15:44-0400 Heart rate95 /GeovanyO Charan Jacinto Work Phone: [facility]07-10-2024 15:44-0400 SaO2% (BldA) [Mass fraction]96 %DO Charan Casey Work Phone: [facility]07-10-2024 15:44-0400 Systolic blood fqafkldx043 mm[Hg]DO Charan Casey Work Phone: [facility]07-02-2024 11:30-0400 Diastolic blood hivxpppf47 mm[Hg]DO Charan Casey Work Phone: [facility]07-02-2024 11:30-0400 Heart rate68 /GeovanyO Charanheather Masseybryn Work Phone: [facility]07-02-2024 11:30-0400 Respiratory rate16 /GeovanyO Charanheather Casey Work Phone: [facility]07-02-2024 11:30-0400 SaO2% (BldA) [Mass fraction]98 %DO Charan Casey Work Phone: [facility]07-02-2024 11:30-0400 Systolic blood gibjzwcs474 mm[Hg]DO Charan Casey Work Phone: [facility]07-02-2024 10:53-0400 Inhaled oxygen flow rate3 L/Dean Casey Work Phone: [facility]07-02-2024 10:09-0400 Body qitpsu585.18 cmDO Charan Casey Work Phone: [facility]07-02-2024 10:09-0400 Body .86 kgDO Charan Casey Work Phone: [facility]04-02-2024 09:31-0400 Body .18 cmDO Charan Casey Work Phone: [facility]04-02-2024 09:31-0400 Body mass index (BMI) [Ratio]37.4 kg/m2DO Charan Casey Work Phone: [facility]04-02-2024 09:31-0400 Body pdedzyjyvjq17.8 [degF]DO Charan Casey Work Phone: [facility]04-02-2024 09:31-0400 Body xmjqaa909.4 kgDO Charan Casey Work Phone: [facility]04-02-2024 09:31-0400 Diastolic blood kkvjuahm50 mm[Hg]DO Charan Casey Work Phone: [facility]04-02-2024 09:31-0400 Heart rate88 /Dean Casey Work Phone: [facility]04-02-2024 09:31-0400 Respiratory rate16 /Dean Casey Work Phone: [facility]04-02-2024 09:31-0400 SaO2% (BldA) [Mass fraction]98 %DO Charan Casey Work Phone: [facility]04-02-2024 09:31-0400 Systolic blood mm[Hg]DO Charan Casey Work Phone: [facility]03-25-2024 14:26-0400 Body ivmbha495.2 cmRosalinda Torres MD Work Phone: 1(626)108-[address] [place], [place] 2073503-25-2024 14:26-0400 Body mass index (BMI) [Ratio]37.12 kg/u9ZlbwouRosalinda Torres MD Work Phone: 1(658)[address]03-25-2024 14:26-0400 Body .5 kgRosalinda Torres MD Work Phone: 1(133)[address]03-25-2024 14:26-0400 Diastolic blood kwnjquku61 mm[Hg]Rosalinda Torres MD Work Phone: 1(585)[address]03-25-2024 14:26-0400 Heart rate84 /minRosalinda Torres MD Work Phone: 1(680)[address]03-25-2024 14:26-0400 Systolic blood bmyjrjrm412 mm[Hg]Rosalinda Torres MD Work Phone: 1(602)[address]01-31-2024 13:00-0500 Body .18 cmCharan Casey Other [facility]01-31-2024 13:00-0500 Body mass index (BMI) [Ratio]37.59 kg/d5ShxkdCharan Casey Other [employer] Other [id number] 13:00-0500Body blhdzylvxkz70.3 [degF]Charan Casey Other [facility] [employer] Other 01-31-2024 13:00-0500Body btoopk834.86 kgCharan Casey Other [facility]01-31-2024 13:00-0500 Diastolic blood laepfgja80 mm[Hg]Charan Casey Other [facility]01-31-2024 13:00-0500 Respiratory rate18 /minCharan Casey Other [employer] Other [id number] 13:00-2860YqB3% (BldA) [Mass fraction]96 % Charan Casey Other [employer] Other [id number] 13:00-0500Systolic blood smbyrieb410 mm[Hg] Charan Casey Other [facility]11-22-2023 12:45-0500 Body olgbwn575.18 cmThommarquez Josesito Other [employer] Other 11-22-2023 12:45-0500Body mass index (BMI) [Ratio] 37.43 kg/y5Ebofeu Josesito Other [employer] Other 11-22-2023 12:45-0500Body ojxphiwtouj68.6 [degF]Blas Bellamy Other [employer] Other 11-22-2023 12:45-0500Body chwupb529.41 kgThomas Josesito Other [employer] Other 11-22-2023 12:45-0500Diastolic blood libjqteh56 mm[Hg] Blas Bellamy Other [employer] Other 11-22-2023 12:45-0500Respiratory rate18 /minThomas Josesito Other [facility] [employer] Other 11-22-2023 12:45-7484YkV2% (BldA) [Mass fraction]96 % Blas Bellamy Other [facility] [employer] Other 11-22-2023 12:45-0500Systolic blood ysgkmnrt770 mm[Hg] Blas Bellamy Other [facility] [employer] Other 11-07-2023 09:04-0500Diastolic blood zwacrmcd27 mm[Hg] DO Charan Casey Work Phone: [facility]11-07-2023 09:04-0500 Heart rate76 /Dean Casey Work Phone: [facility]11-07-2023 09:04-0500 Respiratory rate16 /Dean Casey Work Phone: [facility]11-07-2023 09:04-0500 SaO2% (BldA) [Mass fraction]96 %DO Charan Casey Work Phone: [facility]11-07-2023 09:04-0500 Systolic blood hblirggw823 mm[Hg]DO Charan Casey Work Phone: [facility]11-07-2023 07:01-0500 Body srojxl141.18 cmDO Charan Casey Work Phone: [facility]11-07-2023 07:01-0500 Body plyrnf731.59 kgDO Charan Casey Work Phone: [facility]10-17-2023 10:20-0400 Body obvjwh703.18 cmAbdul Sole Other [facility] [employer] Other [id number] 10:20-0400Body mass index (BMI) [Ratio] 37.46 kg/z0Gdyca Sole Other [facility] [employer] Other 10-17-2023 10:20-0400Body ufpklgmnphh79.2 [degF]Elpidio Sole Other [place] [employer] Other 10-17-2023 10:20-0400Body wjyczh641.5 kgAbdul Sole Other [place] [employer] Other 10-17-2023 10:20-0400Diastolic blood ofisqqlo07 mm[Hg] Elpidio Sole Other [place] [employer] Other 10-17-2023 10:20-0400Respiratory rate18 /minAbdul Sole Other [place] [employer] Other 10-17-2023 10:20-8089WtM3% (BldA) [Mass fraction]99 % Elpidio Sole Other [place] [employer] Other 10-17-2023 10:20-0400Systolic blood mm[Hg] Elpidio Sole Other [place] [employer] Other 10-10-2023 09:00-0400Diastolic blood mm[Hg] DO Charan Masesybryn Work Phone: [facility]10-10-2023 09:00-0400 Heart rate69 /Dean Casey Work Phone: [facility]10-10-2023 09:00-0400 Respiratory rate16 /Dean Casey Work Phone: [facility]10-10-2023 09:00-0400 SaO2% (BldA) [Mass fraction]96 %DO Charan Casey Work Phone: [facility]10-10-2023 09:00-0400 Systolic blood zymajkwf216 mm[Hg]DO Charan Casye Work Phone: [facility]10-10-2023 08:17-0400 Inhaled oxygen flow rate3 L/minDO Charan Casey Work Phone: [facility]10-10-2023 07:21-0400 Body xvkufw440.18 cmDO Charanheather Casey Work Phone: [facility]10-10-2023 07:21-0400 Body zcfolm642.86 kgDO Charan Casey Work Phone: [facility]09-18-2023 09:30-0400 Body .18 cmThomas Felter Other [employer] Other 09-18-2023 09:30-0400Body mass index (BMI) [Ratio] 38.06 kg/e9Rqphcj Felter Other [employer] Other 09-18-2023 09:30-0400Body iykfbv503.22 kgThomas Felter Other [employer] Other 09-12-2023 09:20-0400Body icsdag849.18 cmDale Chatterjee Other [employer] Other 09-12-2023 09:20-0400Body mass index (BMI) [Ratio] 38.06 kg/m2Dale Chatterjee Other [employer] Other 09-12-2023 09:20-0400Body qwyjgo214.22 kgDale Chatterjee Other [employer] Other 09-12-2023 09:20-0400Diastolic blood qkwfwsaa83 mm[Hg] Thierno Chatterjee Other [employer] Other 09-12-2023 09:20-0400Systolic blood dgqdezxs632 mm[Hg] Thierno Chatterjee Other [employer] Other 09-06-2023 08:15-0400Body pflavx248.18 cmCharan Casey Other [employer] Other 09-06-2023 08:15-0400Body mass index (BMI) [Ratio] 38.21 kg/v3VzytvCharan Casey Other [employer] Other 09-06-2023 08:15-0400Body dstiec692.68 kgCharan Casey Other [employer] Other 09-06-2023 08:15-0400Diastolic blood xtjlovst54 mm[Hg] Charan Casey Other [employer] Other 09-06-2023 08:15-0400Respiratory rate18 /minCharan Casey Other [employer] Other 09-06-2023 08:15-8550VtQ9% (BldA) [Mass fraction]95 % Charan Casey Other [employer] Other 09-06-2023 08:15-0400Systolic blood mm[Hg] Charan Casey Other [employer] Other 06-20-2023 12:30-0400Body tjbdol289.18 cmCharan Casey Other [facility] [employer] Other 06-20-2023 12:30-0400Diastolic blood ahnhltos37 mm[Hg] Charan Casey Other [place] [employer] Other 06-20-2023 12:30-0400Respiratory rate18 /minCharan Casey Other [place] [employer] Other 06-20-2023 12:30-6930BmV1% (BldA) [Mass fraction]97 % Charan Casey Other [place] [employer] Other 06-20-2023 12:30-0400Systolic blood mm[Hg] Charan Casey Other [place] [employer] Other 06-01-2023 10:17-0400Body sdvtop562.18 cmCharan Casey Work Phone: [id number]-Limkd [place] [employer] 250 DO Work Phone: 1(347) 106-998606-01-2023 10:17-0400Body mass index (BMI) [Ratio] Medical Reason Not DoneCharan Casey Work Phone: [phone]-Njrvn [place] [facility] 250 DO Work Phone: 1(786) 739-191706-01-2023 10:17-0400Diastolic blood ceuyjhhp82 mm[Hg] Charan Casey Work Phone: [phone]-[employer]ui [place] [facility] 250 DO Work Phone: 1(937) 644-388706-01-2023 10:17-0400Heart rate72 /minCharan Casey Work Phone: [phone]-Fratt [place] [facility] 250 DO Work Phone: 1(239) 760-892306-01-2023 10:17-0400Systolic blood mm[Hg] Charan Casey Work Phone: 1(322) [phone]-Mpzje [facility] 250 DO Work Phone: 1(698) 778-678605-02-2023 15:30-0400Body aenjlq198.18 cmCharan Brysonbryn Other [facility] [employer] Other 05-02-2023 15:30-0400Diastolic blood cywgymcs36 mm[Hg] Charan Casey Other [place] [employer] Other 05-02-2023 15:30-0400Respiratory rate18 /minCharan Casey Other [facility] [employer] Other 05-02-2023 15:30-9910AoT1% (BldA) [Mass fraction]98 % Charanheather Casey Other [place] [employer] Other 05-02-2023 15:30-0400Systolic blood fiyhjwzu201 mm[Hg] Charan Casey Other [place] [employer] Other 04-11-2023 15:40-0400Body rohiny630.18 cmAbdul Sole Other [facility] [employer] Other 04-11-2023 15:40-0400Diastolic blood wptuzucg63 mm[Hg] Elpidio Sole Other [place] [employer] Other 04-11-2023 15:40-0400Respiratory rate16 /minAbdul Sole Other [place] [employer] Other 04-11-2023 15:40-6750OuG2% (BldA) [Mass fraction]99 % Elpidio Sole Other [facility] [employer] Other 04-11-2023 15:40-0400Systolic blood mm[Hg] Elpidio Sole Other [employer] Other 04-05-2023 15:00-0400Body xciqnf354.18 cmChristopher Coco Other [employer] Other 04-05-2023 15:00-0400Body mass index (BMI) [Ratio] 37.43 kg/z0Verirjlkbnj Coco Other [employer] Other 04-05-2023 15:00-0400Body .41 kgChristopher Coco Other [employer] Other 04-05-2023 15:00-0400Diastolic blood lcwviblq39 mm[Hg] Christopher Coco Other [employer] Other 04-05-2023 15:00-7250XfA4% (BldA) [Mass fraction]98 % Christopher Coco Other [employer] Other 04-05-2023 15:00-0400Systolic blood cglvfzin770 mm[Hg] Christopher Coco Other [employer] Other 10-26-2022 16:00-0400Body switjf314.18 cmAbdul Sole Other [employer] Other 10-26-2022 16:00-0400Body mass index (BMI) [Ratio] 37.37 kg/l8Pijsn Sole Other [employer] Other 10-26-2022 16:00-0400Body gjzzxjaaiuq35.4 [degF]Elpidio Sole Other [employer] Other 10-26-2022 16:00-0400Body vgytjc530.23 kgAbdul Sole Other [employer] Other 10-26-2022 16:00-0400Diastolic blood bxpogeud74 mm[Hg] Elpidio Sole Other [employer] Other 10-26-2022 16:00-0400Respiratory rate16 /minAbdul Sole Other [facility] [employer] Other 10-26-2022 16:00-6346VcF6% (BldA) [Mass fraction]98 % Elpidio Sole Other [place] [employer] Other 10-26-2022 16:00-0400Systolic blood dspnsbys313 mm[Hg] Elipdio Sole Other [employer] Other 10-04-2022 14:00-0400Body lohmgd812.18 cmCharan Casey Other [facility] [employer] Other 10-04-2022 14:00-0400Body mass index (BMI) [Ratio]37.9 kg/z6Qqpdg Jacinto Other [employer] Other 10-04-2022 14:00-0400Body jujtss658.77 kgBryheather Jacinto Other [employer] Other 10-04-2022 14:00-0400Diastolic blood hqyhgicp10 mm[Hg] Charan Casey Other [facility] [employer] Other 10-04-2022 14:00-0400Respiratory rate16 /minCharan Casey Other [facility] [employer] Other 10-04-2022 14:00-7594TuR6% (BldA) [Mass fraction]97 % Charan Casey Other [facility] [employer] Other 10-04-2022 14:00-0400Systolic blood uejyckdz808 mm[Hg] Charan Casey Other [facility] [employer] Other 08-28-2022 19:56-0400Body zkovlz569.18 cmDO Charan Casey Work Phone: [facility]08-28-2022 19:56-0400 Body fwoetzenmrl47.1 [degF]DO Charan Casey Work Phone: [facility]08-28-2022 19:56-0400 Body .55 kgDO Charan Casey Work Phone: [facility]08-28-2022 19:56-0400 Diastolic blood pkvavlmx36 mm[Hg]DO Charan Casey Work Phone: [facility]08-28-2022 19:56-0400 Heart rate89 /Dean Casey Work Phone: [facility]08-28-2022 19:56-0400 Respiratory rate20 /Dean Casey Work Phone: [facility]08-28-2022 19:56-0400 SaO2% (BldA) [Mass fraction]98 %DO Charan Casey Work Phone: [facility]08-28-2022 19:56-0400 Systolic blood waroxtng792 mm[Hg]DO Charan Casey Work Phone: [facility]06-09-2022 08:51-0400 Body .18 cmCharan Casey Work Phone: 1(523) [phone]-Kflzf [facility] DO Work Phone: 1(373) 769-117306-09-2022 08:51-0400Body mass index (BMI) [Ratio] 38.06 kg/q5KwsvpCharan Casey Work Phone: 1(909) [phone]-Refuw [facility] DO Work Phone: 1(478) 616-644106-09-2022 08:51-0400Body surface area Derived from formula2.2 m0GzdhhCharan Casey Work Phone: 1(886) [phone]-Nhjhy [facility] DO Work Phone: 1(948) [phone] 08:51-0400Body .22 kgCharan Casey Work Phone: 1(437) [phone]-Hlwhk [facility] DO Work Phone: 1(342) 110-539306-09-2022 08:51-0400Diastolic blood fimblexb69 mm[Hg] Charan Casey Work Phone: 1(535) [phone]-Nvxrt [facility] DO Work Phone: 1(414) 659-703106-09-2022 08:51-0400Heart rate72 /minYeisonheather Dani Casey Work Phone: 1(683) [phone]-Rfcri [facility] 250 DO Work Phone: 1(726) [phone] 08:51-0400Systolic blood mlwhuiaa903 mm[Hg] Charan Dani Masseys Work Phone: 1(505) [phone]-Xoebg [facility] DO Work Phone: 1(212) 943-609106-01-2022 17:00-0400Body .18 cmChristopher Coco Other [employer] Other 06-01-2022 17:00-0400Body mass index (BMI) [Ratio] 38.52 kg/r2Mqvhcgphidc Coco Other [employer] Other 06-01-2022 17:00-0400Body vbwtreesuqj21.1 [degF] Federico Sepulveda Other [employer] Other 06-01-2022 17:00-0400Body nxlhou680.59 kgChristop Coco Other [employer] Other 06-01-2022 17:00-0400Diastolic blood kpuqseym03 mm[Hg] Federico Sepulveda Other [employer] Other 06-01-2022 17:00-2499CoO1% (BldA) [Mass fraction]97 % Federico Sepulveda Other [employer] Other 06-01-2022 17:00-0400Systolic blood gazyzfqy270 mm[Hg] Federico Sepulveda Other [employer] Other 05-16-2022 11:30-0400Body bzerne175.18 cmYeisonheather Casey Other [employer] Other 05-16-2022 11:30-0400Body mass index (BMI) [Ratio] 38.52 kg/n8Wnqty Kuns Other [employer] Other 05-16-2022 11:30-0400Body glyqcp269.59 kgBryan Kuns Other [employer] Other 05-16-2022 11:30-0400Diastolic blood sdgieiww51 mm[Hg] Charan Casey Other [employer] Other 05-16-2022 11:30-0400Respiratory rate16 /minCharan Casey Other [employer] Other 05-16-2022 11:30-0074FtL1% (BldA) [Mass fraction]99 % Charan Casey Other [employer] Other 05-16-2022 11:30-0400Systolic blood mm[Hg] Charan Casey Other [employer] Other 03-24-2022 17:00-0400Body mass index (BMI) [Ratio] 38.56 kg/c6Puozy Sole Other [employer] Other 03-24-2022 17:00-0400Body bhurvddtbcs93.2 [degF]Elpidio Sole Other [employer] Other 03-24-2022 17:00-0400Body ymabfx581.68 kgAbdul Sole Other [employer] Other 03-24-2022 17:00-0400Diastolic blood mm[Hg] Elpidio Sole Other [employer] Other 03-24-2022 17:00-0400Respiratory rate18 /minAbdul Sole Other [employer] Other 03-24-2022 17:00-7517HwW8% (BldA) [Mass fraction]98 % Elpidio Sole Other [employer] Other 03-24-2022 17:00-0400Systolic blood jojhzeyw574 mm[Hg] Elpidio Sole Other [facility] [employer] Other 03-24-2022 12:28-0400Body xiixbq177.18 cmCharan Louise Brysonbryn Work Phone: [phone][facility] [place] [employer] DO Work Phone: 1(418) 331-105203-24-2022 12:28-0400Body mass index (BMI) [Ratio] 38.37 kg/i1OeztrCharan Casey Work Phone: [phone]) [phone]-[employer] [place] [employer] [address] DO Work Phone: 1(930) 287-554803-24-2022 12:28-0400Body surface area Derived from formula2.2 v0Elmyz Dani Masseybryn Work Phone: [phone]-[employer] [place] [employer] [address] DO Work Phone: 1(973) 209-991603-24-2022 12:28-0400Body kwnehc306.13 kgCharan Casey Work Phone: [phone]-Phlcr [place] [facility] 250 DO Work Phone: 1(468) 234-897003-24-2022 12:28-0400Diastolic blood ykrfgtzk20 mm[Hg] Charan Casey Work Phone: [phone]-Jefdf [place] [facility] 250 DO Work Phone: 1(680) 318-358303-24-2022 12:28-0400Heart rate72 /minCharan Casey Work Phone: [phone]-Skjft [place] [facility] 250 DO Work Phone: 1([phone]) 460-776903-24-2022 12:28-0400Systolic blood dyrutjyu998 mm[Hg] Charan Casey Work Phone: [phone]-Caove [place] [facility] 250 DO Work Phone: 1([phone]) [phone] 09:45-0500Body uzpwrq449.18 cmCharan Casey Other [employer] Other 03-11-2022 09:45-0500Body mass index (BMI) [Ratio] 38.27 kg/t4FldjhCharan Casey Other [employer] Other 03-11-2022 09:45-0500Body rzccjo543.86 kgCharan Casey Other [employer] Other 03-11-2022 09:45-0500Diastolic blood mm[Hg] Charan Casey Other [employer] Other 03-11-2022 09:45-0500Respiratory rate18 /minCharan Casey Other [employer] Other 03-11-2022 09:45-2557DpV2% (BldA) [Mass fraction]95 % Charan Casey Other [employer] Other 03-11-2022 09:45-0500Systolic blood wphwuknc453 mm[Hg] Charan Casey Other [employer] Other 02-01-2022 17:20-0500Body ikhtmo481.18 cmThierno Chatterjee Other [employer] Other 02-01-2022 17:20-0500Body mass index (BMI) [Ratio] 38.84 kg/m2Thierno Chatterjee Other [facility] [employer] Other 02-01-2022 17:20-0500Body qgvonr680.49 kgDale Chatterjee Other [facility] [employer] Other 01-04-2022 15:00-0500Body scuhkp367.18 cmCharan Casey Other [facility] [employer] Other 11-02-2021 17:15-0400Body gwpapi544.18 Josué Ortiz Other [facility] [employer] Other Encounters Encounter DateEncounter TypeCare ProviderFacilityStart: 07-27-2025 End: 15-63-8628Kikhod flowsheetShaina Munroe DO Work Phone: [facility] 230Start: 07-27-2025 End: 24-69-5859Pphnzr flowsheetShaina Munroe DO Work Phone: [facility] 230Start: 07-27-2025 End: 63-43-0728Cjyskj outpatient visit 25 minutesAlllucia Munroe DO Work Phone: [facility] 230Comment on above:Type 2 diabetes mellitus [...] index (BMI) of35.0 to 35.9 in adult ([facility]-HCC)Start: 07-27-2025 End: 36-24-1969ajueebvjbpZAVEEPS M PETZNICKNot AvailableStart: 07-12-2025 End: 55-08-9703smwxpbpfoxLqhxr Kuns DO Work Phone: [facility] Work Phone: Start: 07-12-2025 End: 78-47-3622Mxkmhrx encounter procedureCharan Louise DO-[facility] Work Phone: Start: 83-70-3095Hww-patient / Non-visitMojunito Lyons MD-[facility] Work Phone: Start: 84-83-7620Yzz-patient / Non-visitMojunito Lyons MD-[facility] Work Phone: Start: 60-90-6482Fal-patient / Non-visitGustavo Cuevas DO -[facility] Work Phone: Start: 06-21-2025 End: 89-87-0352hgftuyichvIsvub Kuns DO Work Phone: [facility] Work Phone: Start: 06-21-2025 End: 71-24-9477Znibcbr encounter procedureBlas Louise MD-[facility] Work Phone: Start: 89-63-0432Avy-patient / Non-visitBlas Louise MD-[facility] Work Phone: Start: 06-14-2025 End: 21-96-5550eiveiqnreuCgieu Kuns DO Work Phone: [facility] Work Phone: Start: 06-14-2025 End: 94-97-4973Sltkhxb encounter procedureBlas Louise MD-[facility] Work Phone: Start: 06-05-2025 End: 91-02-1855Rrqqyli encounter procedurePeHermosillo DPM [place]-[facility] CtrStart: 06-05-2025 End: 06-13-7430yauaeitphrLijom Kuns DO Work Phone: [facility] Work Phone: start: 05-31-2025 End: 25-79-5097nvbnynrkmoUtenw Kuns DO Work Phone: [facility] Work Phone: Start: 05-31-2025 End: 45-87-6421Xccgijm encounter procedureKyraharsh Diana Louise MD-[facility] Work Phone: Start: 05-15-2025 End: 43-52-0440Ldakqp outpatient visit 25 minutesShaina Munroe DO Work Phone: [facility] 230Comment on above:Type 2 diabetes [...] index (BMI) of35.0 to 35.9 in adult ([facility]-HCC)Start: 05-15-2025 End: 98-05-6022fopazqmgksFIUEMTX M PETZNICKNot AvailableStart: 03-06-2025 End: 30-73-9718wnpngceemaAmrnd Kuns DO Work Phone: [facility] Work Phone: Start: 03-06-2025 End: 20-96-8914Jekvdan encounter procedureCharan Casey DO Work Phone: [facility] Work Phone: Start: 02-16-2025 End: 47-73-1534bmkisxlwpnLygnp Kuns DO Work Phone: [facility] Work Phone: Start: 02-16-2025 End: 54-31-3353Nptujpu encounter procedureCharan Casey DO Work Phone: [facility] Work Phone: Start: 02-14-2025 End: 03-26-8678ujjqmuxtzxADGHGBV Carmen PAREDESLizabeth AvailableStart: 97-93-3281Xsj- patient / Non-visitBryan Brysons DO Work Phone: [facility] Work Phone: Start: 02-01-2025 End: 23-51-1924hkwxlpkwgdRxrdt Kuns DO Work Phone: [facility] Work Phone: Start: 02-01-2025 End: 67-38-2415Dyntbzx encounter procedureBryan Brysons DO Work Phone: [facility] Work Phone: Start: 01-31-2025 End: 79-93-7126nwoopvenhxLyubt Kuns DO Work Phone: [facility] Work Phone: Start: 01-31-2025 End: 90-15-6533Ahizimjtiw RecurringBryan Brysons DO Work Phone: [facility]-Physical Therapy [place]Start: 37-49-4069Smcuipmupf RecurringBryan Brysons DO Work Phone: [facility]-Physical Therapy [place]Start: 01-26-2025 End: 45-36-6057ncrkhvqhnfYumtb Kuns DO Work Phone: [facility] Work Phone: Start: 01-26-2025 End: 61-85-2420Omlrmis encounter procedureBryan Brysons DO Work Phone: [facility] Work Phone: Start: 28-05-5309Lekgxrbmnu RecurringBryan Brysons DO Work Phone: [facility]-Physical Therapy [place]Start: 01-23-2025 End: 32-49-7957Vqmgxxe encounter procedureBryheather Brysons DO Work Phone: [facility]-[address] Closed Work Phone: Start: 01-23-2025 End: 82-38-5697eewsgwcaraKlwcn Brysons DO Work Phone: [facility] Work Phone: Start: 01-18-2025 End: 60-76-2214ghgknadxolSejjn Kuns DO Work Phone: [facility] Work Phone: Start: 01-18-2025 End: 25-69-5139Nbjukim encounter procedureBryan Brysons DO Work Phone: [facility] Work Phone: Start: 99-41-1816Xbmukvfksa RecurringBryan Brysons DO Work Phone: [facility]-Physical Therapy [place]Start: 01-09-2025 End: 13-28-6688Xwnyyzdyz encounterAlllucia Carmen Ketansebastian DO Work Phone: [facility] FM 230Start: 32-41-9992Kcp-patient / Non-visitBryheather Masseys DO Work Phone: [facility] Work Phone: Start: 01-09-2025 End: 80-70-2951agyqryahwbOpvcm Kuns DO Work Phone: [facility] Work Phone: Start: 01-09-2025 End: 55-74-5922Nmiwwat encounter procedureBryan Brysons DO Work Phone: [facility] Work Phone: Start: 18-30-9544Lpftwhreen RecurringBryheather Brysons DO Work Phone: [facility]-Physical Therapy [place]Start: 12-29-2024 End: 29-27-1401rtateozexyBxfla Brysons DO Work Phone: [facility] Work Phone: Start: 12-29-2024 End: 52-55-0645Kvzlayj encounter procedureBryheather Brysons DO Work Phone: [facility] Physician [facility] Orthoped[facility] Work Phone: Start: 12-26-2024 End: 71-53-8151dmaytpvetoDbbru Kuns DO Work Phone: [facility] Work Phone: Start: 12-26-2024 End: 98-36-4762Ejrhacb encounter procedureBryheather Masseys DO Work Phone: [facility] Physician [facility] Pain Mgmt [facility] Work Phone: Start: 61-11-2178Vfzhhpotjp RecurringCharan Masseys DO Work Phone: [facility]-Physical Therapy [place]Start: 12-09-2024 End: 35-95-5150mbhvmqczqgMsxuf Kuns DO Work Phone: [facility] Work Phone: Start: 12-09-2024 End: 11-72-4954Yvrtkhf encounter procedureBryheather Brysons DO Work Phone: [facility] Work Phone: Start: 12-08-2024 End: 48-91-0194Czhofhf encounter procedureBryan Brysons DO Work Phone: [facility] CtrStart: 12-08-2024 End: 75-09-2816tnfvnezoegNnolh Kuns DO Work Phone: [facility] Work Phone: Start: 65-17-0065Fnjvstcgqc RecurringBryheather Casey DO Work Phone: [facility]-Physical Therapy [place]Start: 54-18-6971Euf-patient / Non-visitCharan Casey DO Work Phone: [facility] Work Phone: Start: 2024 End: 04-59-0353Rmmrqigmx to same day surgery centerCharan Casey DO Work Phone: [facility]-Digestive Health Work Phone: Start: 2024 End: 22-97-2679svbntmvzmxDaiaqt FelterFacility:[facility] Start: 10-25-2024 End: 81-41-3478Kwjudsa encounter procedureCharan Casey DO Work Phone: [facility] Orthopedics Work Phone: Start: 10-25-2024 End: 11-17-2088txnkrugtwcRhwyx A BaileyFacility:[place]alt[place]art: 10-19-2024 End: 06-28-4568aeegdofaebDgkzg Kuns DO Work Phone: [facility] Work Phone: Start: 10-19-2024 End: 17-05-1170Rtptgpg encounter procedureCharan Casey DO Work Phone: [facility] Work Phone: Start: 10-17-2024 End: 58-64-1957Rfmxoz outpatient visit 25 minutesAlllucia Munroe DO Work Phone: [facility] 230Comment on above:Type 2 diabetes [...] to 39.9 in adult (CMS/HCC)Start: 10-17-2024 End: 36-38-2868ehaqiccljmSCBYNQE M PETZNICKNot AvailableStart: 13-62-6797Iwv- patient / Non-visitDO Charan Casey Work Phone: [facility] Work Phone: Start: 09-20-2024 End: 43-98-6861Iixvvivic to same day surgery centerDO Charan Casey Work Phone: [facility]-Digestive Health Work Phone: Start: 09-20-2024 End: 03-23-2017ibmsfpbweaJP Charan Casey Work Phone: [facility] Work Phone: Start: 87-66-4141Rts-patient / Non-visitDO Charan Casey Work Phone: [facility] [place] Work Phone: Start: 09-12-2024 End: 16-45-3428cyvdmzmpttCU Charan Casey Work Phone: [facility] Work Phone: Start: 09-12-2024 End: 73-31-8254Uwyzgcy encounter procedureDO Charan Casey Work Phone: [facility] Work Phone: Start: 09-07-2024 End: 52-90-1525Iyegrfm encounter procedureDO Charan Casey Work Phone: [facility] Work Phone: Start: 09-07-2024 End: 45-69-1389nzebccpmnuID Bryan Kuns Work Phone: [facility] Work Phone: Start: 09-02-2024 End: 15-97-1764hpzvbygkaqCafiz KunsFacility:[facility] Start: 14-33-3577Iunyofbfad RecurringDO Charan Casey Work Phone: [facility]-Physical Therapy [place]Start: 08-25-2024 End: 52-78-0135Ibhxvk outpatient visit 25 minutesRosalinda Torres MD Work Phone: [facility] HospitalComment on above:Coronary artery disease, unspecified vessel or lesion type, unspecified whether angina present, unsp ecified whether wales or transplanted heart; Elevated coronary artery calcium [...] unspecified whether serious comorbidity presentStart: 06-13-2024 End: 43-05-0616mlmkjkthprFV Bryan Kuns Work Phone: [facility] Work Phone: Start: 06-13-2024 End: 37-76-4057Pfqcwod encounter procedureDO Charan Casey Work Phone: [facility] Work Phone: Start: 06-08-2024 End: 33-18-5428qhcstjtdylSY Bryan Kuns Work Phone: [facility] Work Phone: Start: 06-08-2024 End: 42-43-0909Eirnwdt encounter procedureDO Charan Casey Work Phone: [facility] Sleep Lab Work Phone: Start: 18-90-0626Qfp-patient / Non-visitDO Charan Casey Work Phone: [facility] Work Phone: Start: 05-31-2024 End: 00-26-4431Ekwuryubw to same day surgery centerDO Charan Casey Work Phone: [facility]-Digestive Health Work Phone: Start: 05-31-2024 End: 44-06-7631tkntrbuavdRT Charan Casey Work Phone: [facility] Work Phone: Start: 05-23-2024 End: 26-32-2029tlwwoupkxzAD Charan Casey Work Phone: [facility] Work Phone: Start: 05-23-2024 End: 90-57-7759Mygeapv encounter procedureDO Charan Casey Work Phone: [facility] Pain Management [place] Work Phone: Start: 98-01-7517Qtd-patient / Non-visitDO Charan Casey Work Phone: [facility] [place] Work Phone: Start: 02-90-4753Ail-patient / Non-visitDO Charan Casey Work Phone: [facility] [place] Work Phone: Start: 35-63-6798Xfb-patient / Non-visitDO Charan Casey Work Phone: [facility] Work Phone: Start: 03-17-2024 End: 39-87-4134xdeaofzqffBV Charan Casey Work Phone: [facility] Work Phone: Start: 03-17-2024 End: 50-95-7519Syxqywl encounter procedureDO Charan Casey Work Phone: [facility] Work Phone: Start: 03-05-2024 End: 55-65-4955uomxnemgtxMZ Charan Casey Work Phone: [facility] Work Phone: Start: 03-05-2024 End: 68-17-4646Khxcsnr encounter procedureDO Charan Casey Work Phone: [facility] Main [place] Work Phone: Start: 03-01-2024 End: 94-85-9299pgrkkiukzcAG Charan Casey Work Phone: [facility] Work Phone: Start: 03-01-2024 End: 85-59-7812Yyrmvsl encounter procedureDO Charan Casey Work Phone: [facility] Nephrology Work Phone: Start: 02-29-2024 End: 49-39-8226shrvceyjfhCS Charan Casey Work Phone: [facility] Work Phone: Start: 02-29-2024 End: 11-28-1810Lpuemgd encounter procedureDO Charan Casey Work Phone: [facility]art: 73-50-3177Hoa-patient / Non-visitDO Charan Casey Work Phone: [facility] Work Phone: Start: 02-22-2024 End: 34-10-9961thcvetdsbcGQBQEF M [facility]art: 02-22-2024 End: 24-25-6196Ohbfxy outpatient visit 25 minutesRosalinda Torres MD Work Phone: [facility] on above:Coronary artery disease, unspecified vessel or lesion type, unspecified whether angina present, unsp ecified whether wales or transplanted heart (Primary Dx); Essential hypertension; 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; Hyperlipidemia, unspecified hyperlipidemia type; Obstructive sleep apnea syndrome; Class 2 obesity with body mass index (BMI) of 37.0 to 37.9 in adult, unspecified obesity type, unspecified whether serious comorbidity present; Insulin-requiring or dependent type II diabetes mellitus ([facility])Start: 30-31-0581Gqw-patient / Non-visitDO Charan Casey Work Phone: [facility] Group[facility] Work Phone: Start: 50-66-4653Yuf-patient / Non-visitDO Charan Casey Work Phone: [facility] GroupVirgin[facility] Work Phone: Start: 02-04-2024 End: 97-20-5036Gvowspk encounter procedureDO Charan Casey Work Phone: [facility] Pain Management [facility] Work Phone: Start: 01-11-2024 End: 74-77-5572aqdusgjowgRnxpg Kuns Other [employer] Other Start: 67-95-6936Fjkwvkcwq encounterCharan [facility] [place]Start: 12-31-2023 End: 37-13-1896snntlbcwntBgopq Kuns Other [employer] Other Start: 62-18-8514Hnpqfarhe encounterCharan Waters [facility] [place]Start: 12-30-2023 End: 85-52-5560Gdwfywb encounter procedureDO Charan Casey Work Phone: [facility] CtrStart: 12-30-2023 End: 72-07-9585eccvbwqbduVG Charan Casey Work Phone: [facility] Work Phone: Start: 52-05-4079Srvtqn outpatient visit 15 minutes Charan [facility] [place]Start: 12-30-2023 End: 03-09-0240Iizymbb encounter procedureDO Charan Casey Work Phone: [facility]-Start: 11-26-2023 End: 47-47-3753bbejaigpokRV Charan Casey Work Phone: [facility] Work Phone: Start: 11-26-2023 End: 60-68-0168Htxyazi encounter procedureDO Charan Casey Work Phone: [facility]art: 11-06-2023 End: 42-30-1415jobhovlphxYuxke Kuns Other [employer] Other Start: 27-65-2535Bcygwhcym encounterCharan DelarosaG Referral CoordinatorStart: 36-64-9072Cmdfoqqe care educationDaUniversity of [facility] Coordinated Care ClinicStart: 67-91-1589Zxcgjfpne by computer linkDaCommunity Hospital Coordinated Care ClinicStart: 11-05-2023 End: 00-51-2474hjaovbjjgbPB Charan Casey Work Phone: [employer] Other Start: 11-05-2023 End: 16-67-6625Jmjitqtqfx RecurringDO Charan Casey Work Phone: [facility] Work Phone: Start: 63-95-7517Pvczkcursk RecurringDO Charan Casey Work Phone: [facility] Work Phone: Start: 11-03-2023 End: 81-35-5983hzfndvtnonPxtqx Kuns Other [employer] Other Start: 87-34-8837Ztenagulr encounterBryheather Waters [facility] [place]Start: 10-28-2023 End: 97-07-1971ellidmpffxMtoveq Felter Other [employer] Other Start: 89-85-6974Icwkbf outpatient visit 15 minutes Blas FeltNatalie Pain Management [place]Start: 68-16-3326Jlcoykbhy encounter Blas FelterFPG Pain Management [place]Start: 10-28-2023 End: 62-63-0286Yxaijml encounter procedureDO Charan Casey Work Phone: [facility]Card[employer]o [facility]ician [facility] [place] Work Phone: Start: 10-21-2023 End: 76-45-6267kajiuekbhxThhqcg [place] Other [facility] [employer] Other Start: 65-31-8972Wysiqh outpatient visit 15 minutes Blas BellamyFPRuthie Urgent Care [facility] Hospitaltart: 10-21-2023 End: 03-78-3486Ncqjdzp encounter procedureDO Charan Casey Work Phone: [facility] [place] Work Phone: Start: 10-19-2023 End: 02-64-9001sugklyhxexOhqvlz Felter Other [employer] Other Start: 46-25-8633Wvubqujxk encounterThomas FelterFPG Pain Management [place]Start: 10-07-2023 End: 17-32-9051xcdmegkybzNfawd Kuns Other [employer] Other Start: 01-05-3432Xrjfsdmjt encounterCharan Waters Family [facility] [place]Start: 10-06-2023 End: 62-63-2405Zhmypiuvj to same day surgery centerDO Charan Casey Work Phone: [facility]-Digestive Health Work Phone: Start: 10-06-2023 End: 93-80-7464kbosnpsxpgVU Charan Casey Work Phone: [facility] Work Phone: Start: 09-23-2023 End: 94-17-1610nlepiclhkvLyiihy Felter Other [employer] Other Start: 87-79-7750Azpgzn outpatient visit 15 minutes Blas Berger [facility] [place]Start: 09-15-2023 End: 65-39-7520zdxzirtjrwSdsiz Sole Other [employer] Other Start: 44-25-4585Xfilxe outpatient visit 25 minutes Elpidio QadirFPG NephrologyStart: 09-14-2023 End: 35-75-9807vuxdpwhmnjTA Bryan Kuns Work Phone: [facility] Work Phone: Start: 09-14-2023 End: 43-98-1885Lavtncz encounter procedureDO Charan Casey Work Phone: [facility] CenterStart: 09-08-2023(Procedure) ShortThomas FelterikaAvita Health System OutPtStart: 09-08-2023 End: 18-35-4939Ntgyztosu to same day surgery centerDO Charan Casey Work Phone: [facility]-Digestive Health Work Phone: Start: 09-08-2023 End: 18-29-0889oichovkjsgGI Charan Casey Work Phone: [facility] Work Phone: Start: 08-25-2023 End: 12-59-8411pifxmglnilWpbx Asaad Other [employer] Other Start: 71-49-5753Ljuacbkgi encounterImaandrea AsaadFPG Referral CoordinatorStart: 08-18-2023 End: 58-95-7964gjrdktrjlhTrasv Kuns Other [employer] Other Start: 00-56-2324Grdzieiut encounterCharan CaseyFPG Family Medicine [place]Start: 08-17-2023 End: 03-59-8555lbchqrqvfcQgzeeb Felter Other [facility] [employer] Other Start: 84-42-3953Brnljv outpatient visit 25 minutes Blas Berger [facility] [place]Start: 08-17-2023 End: 19-78-8288Ycunbgg encounter procedureDO Charan Casey Work Phone: [facility] Start: 00-92-7184Wydpgi outpatient visit 15 minutesDale BraunBaptist [facility] Hospital NeurosurgeryStart: 08-11-2023 End: 47-11-6384vendmhajouGM Charan Casey Work Phone: [facility] Work Phone: Start: 08-11-2023 End: 53-45-6542Xsfxrde encounter procedureDO Charan Casey Work Phone: [facility]-X[facility]Ray [facility] CtrStart: 08-05-2023 End: 96-81-4684ofqfpdmlrkBurhn Kuns Other [employer] Other Start: 49-43-9061Tjrvch outpatient visit 25 minutes [facility] [place]Start: 07-02-2023 End: 11-45-9355uolihqngibFiuyu Kuns Other [place] [employer] Other Start: 70-55-3040Zzklkhlbv encounterCharan Waters Family Medicine [place]Start: 06-08-2023 End: 50-97-4383celseynsyrRG Charan Casey Work Phone: [facility] Work Phone: Start: 06-08-2023 End: 75-50-7800Anojwanbci RecurringDO Charan Casey Work Phone: [facility]-Physical Therapy [facility] Hospitaltart: 05-28-2023 End: 85-83-9494jbcuqbmytqRyso Fitt Other [place] [employer] Other Start: 39-85-0754Hifrynom care educationDa Fitt [facility] Centertart: 77-43-1931Zoyhakihab RecurringDO Charan Casey Work Phone: [facility] Work Phone: Start: 65-33-0338Jxxxgz outpatient visit 25 minutes Charan [facility] [place]Start: 05-19-2023 End: 57-40-1196bhfueojhtcAP Charan Casey Work Phone: [facility] Work Phone: Start: 05-19-2023 End: 49-92-5019Wnampnn encounter procedureDO Charan Casey Work Phone: [facility]Ray [facility] CtrStart: 05-05-2023 End: 16-39-1876zcqjixjuhsRmaqk Kuns Other [employer] Other Start: 01-50-7899Bwrzkomky encounterYeisonheather DelarosaG Family Medicine [place]Start: 51-74-9422Kqgccl outpatient visit 25 minutesCharan Dani Brysonbryn Work Phone: [phone]-Sgmai [facility] [address] DO Work Phone: Start: 50-59-7658qttvxxaertJyulatoryDr. Charan Casey Facility:[id number]: 04-13-2023 End: 52-19-7631qwatvtteejPKSWF D [facility]LANDFacility:E9Eokbu: 04-07-2023 End: 10-94-5828ndntiiislmMLNZFI R ZIEBERFacility:U9Akstg: 89-55-2613Rvsajxiug for preprocedural laboratory examinationPETER D [facility] Start: 04-06-2023 End: 49-79-8424aohqtdcixiHlxlk Kuns Other [employer] Other Start: 19-78-8874Vhvpazlpj encounterYeisonheather BrysonRachelG Family Medicine CastaliaStart: 97-83-9596Ystfqd outpatient visit 25 minutesCharan MasseybrynERICG Family [facility] [place]Start: 03-31-2023 End: 96-05-6161hffjgrluqgKHRIZ D [facility] [employer] Other Start: 03-31-2023 End: 43-80-4399Loasmukos for preprocedural laboratory examinationPETER D [facility]LANDFacility:W5Csfnz: 03-26-2023 End: 25-09-7165kfejfjbhuqDabjn Kuns Other [employer] Other Start: 75-45-1799Ejkgbjtge encounterYeisonheather BrysonRachelG Family [facility] [place]Start: 03-23-2023 End: 54-76-2295pqbaniqjznXIXDPI R ZIEBERFacility:R4Bmtyb: 03-10-2023 End: 52-08-8629nzdmnimcdvGunke Osle Other [employer] Other Start: 81-41-9165Arckmn outpatient visit 25 minutes Elpidio QadirFPG NephrologyStart: 03-06-2023 End: 71-44-9641hicitiubifPY Charan Casey Work Phone: [facility] Work Phone: Start: 03-06-2023 End: 33-46-4970Cggzgwj encounter procedureDO Charan Casey Work Phone: [facility]ylertart: 84-61-7305Wpsswc outpatient visit 15 minutesChristopher CocoSt. Charles Hospital Ctr SouthStart: 12-96-2702Arhvidtsa encounterCharan ODOM [facility] [place]Start: 03-04-2023 End: 52-42-3208iabfmmjzycOJ Charan Casey Work Phone: [facility] [employer] Other Start: 03-04-2023 End: 02-21-2811Zcpixxt encounter procedureDO Charan Casey Work Phone: [facility]-Sleep Lab Work Phone: Start: 03-03-2023 End: 93-37-4633ywmhqvlkdlVHLATA R ZIEBERFacility:X2Iskty: 02-17-2023 End: 07-18-6017qtwdarxvfzTVNHN V WESTFacility:A9Pgrnc: 02-16-2023 End: 35-80-8739qdppbhmzwgKidbp Kuns Other [employer] Other Start: 36-56-0675Adnkmgfsd encounterBryheather DelarosaG Family Medicine [place]Start: 02-05-2023 End: 04-57-9811jjpdarxogbBypwp Kuns Other [employer] Other Start: 71-46-0108Upnvjogbs encounterCharan CaseyRuthie Family [facility] [place]aliaStart: 02-03-2023 End: 59-28-0554apemnyddvkOEUEH V WESTFacility:K3Vljzo: 01-27-2023 End: 69-56-7492Kalugpt encounter procedureDO Charan Casey Work Phone: [facility] Work Phone: Start: 01-27-2023 End: 08-89-7484ucpvncjckhFS Bryan Kuns Work Phone: [facility] Work Phone: Start: 67-90-3380Skypro Injection one Vaccine (Admin Chg)[facility] Coordinated Care ClinicStart: 01-20-2023 End: 40-27-3227zpekxdzddtMZDFRJ R ZIEBERFacility:O4Moejw: 01-19-2023 End: 20-74-5600yriuiwwdahMvvgf Kuns Other [employer] Other Start: 72-48-5404Tqryzqmoy encounterCharan Waters [facility] [place]Start: 12-29-2022 End: 36-56-7118gzshbxmaiaFVYPPR R ZIEBERFacility:M1Odxqf: 90-23-8999Jsnbntecm for preprocedural cardiovascular examinationPETER D [facility] HospitalStart: 18-06-8633Tvuqheshr for preprocedural laboratory examinationPETER D [facility] Akrontart: 12-23-2022 End: 68-50-3633qjfxdmpiulUUTPB D [facility] HOSPITALANDERFacility:L7Tvlhi: 12-23-2022 End: 17-69-6770Zlsicofjn for preprocedural cardiovascular examinationPETER D [facility]LANDFacility:B5Bwvin: 11-26-2022 End: 78-97-0956aifdydzkrzQEZED V WESTFacility:P9Kgdsw: 11-12-2022 End: 98-62-6632zhtjzdufhwFZOKFS R ZIEBERFacility:S6Jylte: 14-89-7039uwdeboiinv Dr. Charan CaseyFacility:60878Ttrbt: 10-28-2022([facility] INJ) [facility] Injection Eliud [facility] Coord[facility] Care ClinicStart: 10-28-2022 End: 46-31-5740djndvhcqmhPF Charan Casey Work Phone: [facility] Work Phone: Start: 10-28-2022 End: 91-48-1930Bofdbth encounter procedureDO Charan Casey Work Phone: [facility]-[place] for Coordinated CareStart: 10-16-2022([facility] C Vac) [facility] Covid VaccineDaUniversity of [facility] Coordinated Care ClinicStart: 10-16-2022([facility] INJ) [facility] InjectionDawn [facility] Coordinated Care ClinicStart: 37-53-4429Ibjjgqqpw encounterPopeye ODOM NephrologyStart: 10-16-2022 End: 52-06-4487zojzdlpumoBO Bryan Kuns Work Phone: [place] [employer] Other Start: 10-16-2022 End: 88-21-5386Rtssvex encounter procedureDO Charan Casey Work Phone: [facility] for Coordinated CareStart: 10-15-2022 End: 69-00-8670wagsythefzWR Bryan Kuns Work Phone: [facility] Work Phone: Start: 10-15-2022 End: 69-43-8916Gkbayde encounter procedureDO Charan Casey Work Phone: [facility]-MRI Strub RdStart: 10-13-2022 End: 41-03-4852qtfmuxwfulZN Bryan Kuns Work Phone: [facility] Work Phone: Start: 10-13-2022 End: 76-79-6804Zteuxlv encounter procedureDO Charan Casey Work Phone: [facility]-MRI Strub RdStart: 09-24-2022 End: 79-30-1772ngidxmcsbgQclpp Sole Other [employer] Other Start: 55-15-4686Oxwyew outpatient visit 25 minutes Elpidio QadirFPG [facility] Clinic ButterfieldStart: 09-02-2022 End: 79-36-2368yrcwbrcmrtSsstw Kuns Other [employer] Other Start: 68-27-0804Myrtme outpatient visit 25 minutes Charan Waters [facility] [place]Start: 08-13-2022 End: 57-90-2420Ukfdwhc encounter procedureDO Charan Casey Work Phone: [facility]art: 08-07-2022 End: 31-70-0333aqhnsgciqpCsobo Kuns Other [facility] [employer] Other Start: 68-44-1640Ciqklwvkl encounterCharan Waters [facility] [place]aliaStart: 07-27-2022 End: 82-09-0245Sfwuccaxn department patient visitDO Charan Casey Work Phone: [facility]-Emergency RoomStart: 07-16-2022 End: 66-83-5933cyxcuydgzsSbavb Kuns Other [employer] Other Start: 95-63-7769Nfuejddoe encounterCharan Waters [facility] CastaliaStart: 07-02-2022 End: 97-22-0919cmsbhiranxNlctr Kuns Other [employer] Other Start: 52-83-7107Dtkhktlds encounterCharan MasseysFPG Family Medicine [place]Start: 35-70-5827Nsdcjy outpatient visit 25 minutesCharan Casey Work Phone: [phone]-Pblnw [facility] [address] DO Work Phone: Start: 04-30-2022 End: 73-80-2705tkwjcragprGwonnozpvky Coco Other [facility] [employer] Other Start: 32-54-4952Gqvzup outpatient visit 10 minutes Federico BoschMercy HospitalStart: 04-14-2022 End: 33-79-3519tosatxuzyoMikmu Kuns Other [facility] [employer] Other Start: 51-99-1471Xtohsg outpatient visit 25 minutes Charan CaseyRuthie Family Medicine CastaliaStart: 04-07-2022 End: 11-27-8075etrrpnzwjuAuvqb Kuns Other [facility] [employer] Other Start: 89-14-6626Bisngrlgw encounterBryheather BrysonsFPG Family [facility] [place]Start: 04-02-2022 End: 89-05-5846wbjdqoufffYhfzi Kuns Other [facility] [employer] Other Start: 27-66-5762Ucspfandy encounterBryheather MasseysFPG [facility] [place]Start: 03-31-2022 End: 34-02-5621hccbyrmvhpOncsw Kuns Other [employer] Other Start: 29-43-4934Mcmxmixvy encounterBryheather MasseysFPG Family [facility] [place]aliaStart: 76-13-6599RYJISEVMJ, Provider: Rosalinda Torres, Status: Pen, Time: 1:00 PMCharan Dani Casey Work Phone: [phone]-Rwvqh [facility] [address] DO Work Phone: Start: 52-90-3335Vkevj UpdateYeisonheather Casey Work Phone: [phone]-Uvteq [facility] [address] DO Work Phone: Start: 03-13-2022 End: 56-28-9729pokwzlnxcgVbuso Kuns Other [employer] Other Start: 09-51-8690Qzjjkvoyb encounterCharan DelarosaG [facility] [place]Start: 56-20-7709Zmnqf UpdateCharan Dani Casey Work Phone: [phone]-Fftjk [facility] [address] DO Work Phone: Start: 03-07-2022 End: 11-17-4247crjtvypyzhCejm Fitt Other [employer] Other Start: 78-64-0073Hfpbugkyw encounterRenée Angelo Coordinated Care ClinicStart: 03-04-2022 End: 95-81-9784zdsoibnwguPffzz Kuns Other [employer] Other Start: 63-58-8549Mjbkoiofl encounterCharan DelarosaG [facility] CareStart: 02-20-2022 End: 41-50-1479hcdvkpnxwhPkdht Sole Other [employer] Other Start: 29-52-9310Flpbdr outpatient visit 25 minutes Elpidio QadirFPG NephrologyStart: 02-10-2022 End: 33-89-8218tsfxtucwriTbugi Kuns Other [employer] Other Start: 09-35-8996Qlswfsiqc encounterBryheather CaseyFPG [facility] [place]Start: 02-07-2022 End: 72-22-8382uanwqeugcuZlcas Kuns Other [employer] Other Start: 02-61-4760Oskzyo outpatient visit 25 minutes Charan CaseyFPG [facility] [place]Start: 02-05-2022 End: 56-39-5312aodmlpxnwgOzeac Kuns Other [employer] Other Start: 45-22-8982Fxduoizfx encounterBryheather MasseysFPG [facility] [place]Start: 01-21-2022 End: 79-86-0157pfojrbqiekDafwg Kuns Other [employer] Other Start: 60-21-5189Przxcpepp encounterBryheather CaseyFPG [facility] [place]Start: 12-31-2021 End: 38-69-4710skhxwpaqouVrvk Chatterjee Other [employer] Other start: 39-57-6269Fkjnjt outpatient visit 15 minutes Thierno ChatterjeeRuthie [facility] CenterStart: 12-07-2021 End: 34-62-2433ouhycjlmclIktnt Kuns Other [employer] Other Start: 79-18-4814Cbvxhqpgy encounterBryheather CaseyFPG [facility] [place]Start: 12-06-2021 End: 90-40-4058ilpqowuyemCrein Kuns Other [employer] Other Start: 34-30-0859Lddrrpwzn encounterBryheather CaseyFPG [facility] CareStart: 12-03-2021 End: 54-89-6652vqsndteecwWmlva Kuns Other [facility] [employer] Other Start: 20-25-5833Jdknow outpatient visit 15 minutes Charan Waters [facility] [place]Start: 10-01-2021 End: 96-90-4267hervhacmuxSvukku Felter Other [facility] [employer] Other Start: 43-16-8339Htpgzv outpatient visit 25 minutes Blas [facility] [place] End: 12-37-1589Ludfwvq encounter statusCharan Casey Work Phone: [phone]-Ojruk [facility] [address] DO Work Phone: Procedures DateProcedureProcedure DetailPerforming ClinicianStart: 26-90-3878Goocppfa Identification OnlyCharan Casey DO Work Phone: Start: 46-29-9757M-ray of both feetCharan Casey DO Work Phone: Start: 18-20-0572Arajdcvdzb glycosylated a6wNnwalod Carmen Petznick DO Work Phone: Start: 46-42-1610XML of right shoulderCharan Casey DO Work Phone: Start: 55-65-8775GMO (POC)Charan Casey DO Work Phone: Start: 31-94-6521Qtbey chest X-rayCharan Casey DO Work Phone: Start: 73-84-4334Wbqbv anesthetic lumbar facet joint nerve blockCharan Casey DO Work Phone: Start: 95-48-9852Opuua X-ray of right shoulderCharan Casey DO Work Phone: Start: 88-75-2096Guezezktvw glycosylated u7iVvluyul M Petznick DO Work Phone: Start: 64-45-2333Taufa anesthetic sacral epidural blockDO Charan Casey Work Phone: Start: 30-50-9703Smlznzxeh mammography of bilateral breastsDO Charan Casey Work Phone: Start: 62-41-2248Qbdehlyqv of local anesthetic into sacroiliac jointDO Charan Casey Work Phone: Start: 99-97-6825AQC of lumbar spine with contrastDO Charan Casey Work Phone: Start: 01-20-8592Vddef cultureDO Charan Casey Work Phone: Start: 92-29-6954Owwuc chest X-rayDO Charan Casey Work Phone: Start: 18-59-7201Dlxsxjv of placement of stent for coronary artery disease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Rosalinda Torres MD Work Phone: Start: 33-65-2369Gtsgcgi of cholecystectomyS/P laparoscopic cholecystectomyAllison Carolina BASSETT Work Phone: Start: 35-34-7081Maigbnxem colonoscopyDO Charan Casey Work Phone: Start: 63-10-2548OrvsonwypqmExmezo Ibrahim MD Work Phone: Start: 52-18-1892Ntzibcihw of local anesthetic into sacroiliac jointDO Charan Casey Work Phone: Start: 56-73-8265Hbzbp X-ray of right hipDO Charan Casey Work Phone: Start: 67-74-2528L-ray of lumbar spine, six views including bending viewsDO Charan Casey Work Phone: Start: 44-82-1221Obgri chest X-rayDO Charan Casey Work Phone: Start: 39-68-8132Zipuglueljl of thoracic spineDO Charan Casey Work Phone: Start: 24-05-4816Z-ray of lumbar spine, four or more viewsDO Charan Casey Work Phone: Start: 60-38-2727Rcgge cultureDO Charan Casey Work Phone: Start: 09-14-2379LMS of right ankleDO Charan Casey Work Phone: Start: 86-53-8167HSH of right footDO Charan Casey Work Phone: Start: 40-75-6566MWK of left ankleDO Charan Casey Work Phone: Start: 55-67-8791RDU of left footDO Charan Casey Work Phone: Start: 90-25-4501CD of bilateral feetDO Charan Casey Work Phone: Start: 58-75-8052Mixij volume recorder pneumoplethysmographyDO Charan Casey Work Phone: Start: 50-73-3630Z-ray of left footDO Charan Casey Work Phone: [...] footBryan P Kuns Work Phone: ParathyroidectomyBryan P Drive [employer] Work Phone: Procedure on backBryan P Kuns Work Phone: Procedure on neckBryan P Drive [employer] Work Phone: Total colonoscopyBryan P [employer] Work Phone: Comment on above:30Nov2018; Plan of Treatment DateCare ActivityDetailAuthorStart: 13-58-3041Yiqdhegqm for malignant neoplasm of [facility]: 64-29-7263Ofuopvdsqnpr Vaccine: Pediatrics (0 to 5 Years) and At-Risk Patients (6 to 64 Years) (3 - PPSV23 or PCV20)Pneumococcal Vaccine: Pediatrics (0 to 5 Years) and At-Risk Patients (6 to 64 Years) (3 - PPSV23 orPCV20)[facility]: 34-12-1036Mbujrvnxlzea Vaccine: Pediatrics (0 to 5 Years) and At-Risk Patients (6 to 64 Years) (3 of 3 - PPSV23 or PCV20)Pneumococcal Vaccine: Pediatrics (0 to 5 Years) and At-Risk Patients (6 to 64 Years) (3 of 3 - PPSV23 or PCV20) [facility]: 10-24-2025 End: 27-90-7022Zcxpfgn encounter daicxmpfr37/25/2025 10:30 AM EST [facility] [address] [place] [address] Shaina Munroe, [address] [place] [address] [facility] 230 Start: 18-10-6581Hczsontj screeningDiabetes: Retinopathy ScreeningNONH HealthcareStart: 08-15-2025 End: 02-93-8401Xfnmotw encounter procedureNOMS [facility] 230Start: 07-31-2025 Influenza vaccinationNONH HealthcareStart: 07-27-2025 End: 78-29-5407Qlzcoqb encounter xvqcmpnwe87/28/2025 8:15 AM EDT Office Visit [facility] [place] [facility] [address] [place] [address] Shaina Munroe, DO [address] [place] [address] [facility] 230Comment on above:ArrivedStart: 03-28-2025 End: 11-29-6265Hccfdew encounter nxacrcxto60/29/2025 8:50 AM EDT Office Visit [facility] [address] [place] [address] Rosalinda Torres MD [address] [place] [address] [facility]Start: 02-14-2025 End: 26-51-2824Efwxzuj encounter vvfhjoqmt63/18/2025 9:30 AM EDT Office Visit [facility] [address] [place] [phone] Shaina Munroe, DO [address] [place] [address] [facility] 230Start: 86-38-8730ON Shoulder - right WO [facility] Shawtart: 56-73-7212EXO of right shoulder MR shoulder RT [facility] Hospitaltart: 01-17-2025 Hemoglobin A1c measurementDiabetes: Hemoglobin F1ZYLAFUniversity HospitalStart: 16-27-7748OiclrgxsjOhioHealthtart: 41-20-8308BufjmspqkOhioHealthtart: 08-25-2024 End: 50-31-4673Ucdqiso encounter zbxhyllbs17/26/2024 8:40 AM EDT Office Visit [facility] [address] [place] [address] Rosalinda Torres MD [address] [place] [address] [facility]: 69-19-2612IDVSP-19 Vaccine ( season)COVID-19 Vaccine ( season)[facility] Start: 93-66-7439Oxmcbbgqe vaccinationInfluenza Vaccine (#1)[facility] Start: 51-67-8441MeierobmoOhioHealthtart: 44-53-4464Hmxcfior identified in Urine by CultureOhioHealthtart: 02-29-2024 Urine cultureUrine [facility] Centertart: 89-91-5618QPE, Provider: Rosalinda Torres, Status: Pen, Time: 9:10 AMFUV, Provider: Rosalinda Torres, Status: Pen, Time: 9:10 [facility] 250 DO Work Phone: Start: 13-19-6605DlpzgrztqHolzer Hospital Start: 06-28-8372SvvufdbofOhioHealthtart: 30-27-5787AITVG-19 Vaccine ( season)COVID-19 Vaccine ( season)[facility] HospitalStart: 11-09-2239Gtrfqplhp vaccinationInfluenza Vaccine (#1)[facility] HospitalStart: 74-97-4526Psvlbtuc identified in Urine by [facility] Centertart: 07-32-2784OBX, Provider: Rosalinda Torres, Status: Pen, Time: 9:00 AMFUV, Provider: Rosalinda Torres, Status: Pen, Time: 9:00 [facility] 250 DO Work Phone: Start: 54-36-7753WGhS/Tdap/Td Vaccines (2 - Td or Tdap)DTaP/Tdap/Td Vaccines (2 - Td or Tdap)[facility] Start: 46-19-2480EDWYDOUIB, Provider: Rosalinda Torres, Status: Pen, Time: 1:00 PM SURGNONUH, Provider: Rosalinda Torres, Status: Pen, Time: 1:00 PM-[facility] 250 DO Work Phone: Start: 72-85-2085QBU, Provider: Rosalinda Torres, Status: Pen, Time: 1:50 PMFUV, Provider: Rosalinda Torres, Status: Pen, Time: 1:50 PM-[facility] 250 DO Work Phone: Start: 21-50-1625DBR patients and/or patients aged 60+ years (1 - 1-dose 60+ series)RSV patients and/or patients aged 60+ years (1 - 1-dose 60+ series)[facility]: 75-58-7114Puprrmrih for malignant neoplasm of breastMammogramUnBarberton Citizens Hospital: 38-36-8352Fscgrmgpl for malignant neoplasm of cervixNOMS HealthcareStart: 37-84-3025EIzC/Tdap/Td Vaccines (1 - Tdap) DTaP/Tdap/Td Vaccines (1 - Tdap)[facility]: 29-74-6363Teaatrlia for malignant neoplasm of cervixUnBarberton Citizens Hospital: 97-16-5793Sjjct screening for proteinDiabetes: Urine Protein ScreeningGlenbeigh Hospital: 60-15-8305Eluavbvyy C screening Hepatitis C ScreeningUnBarberton Citizens Hospital: 90-76-5499Utirnujv foot examinationDiabetes: Foot ExamUnBarberton Citizens Hospital: 90-46-7746Amznplii screeningDiabetes: Retinopathy ScreeningGlenbeigh Hospital: 05-10-6085ZJE Vaccines (1 of 1 - Standard series)MMR Vaccines (1 of 1 - Standard series)[facility]: 1960 Hemoglobin A1c measurementDiabetes: Hemoglobin C2VDyyajmsltpGlenbeigh Hospital: 65-99-2571BTF screeningHIV ScreeningUnBarberton Citizens Hospital: 40-52-0722Exqes panelLipid PanelUnBarberton Citizens Hospital: 1960Medicare Annual Wellness (AWV)Medicare Annual Wellness (AWV)[facility] HealthcareStart: 1960Medicare Annual Wellness VisitMedicare Annual Wellness Visit (AWV)[facility] Hospital[facility]: 1960 Screening for malignant neoplasm of colonUnBarberton Citizens Hospital: 53-34-5124Fskjam Adult PhysicalYearly Adult PhysicalUnOhioHealth [facility] HospitalComprehensive metabolic 2000 panel - Serum or PlasmaHolzer HospitalMR Lumbar spine WO and W contrast [facility]lower HospitalMR Shoulder - right WO contrastHolzer HospitalPatient EducationAvita Health System Ctr Work Phone: Patient referralAvita Health System Ctr Work Phone: Renal function 1999 panel - Serum or PlasmaHolzer HospitalRheumatoid factor [Units/volume] in Serum or Plasma [facility] Immunizations Immunization DateImmunizationNotesCare BaqcyywxXwumxmmf12-19-6262ewcqep vaccine recombinantDawn Fitt Other [facility]11-29-2022zoster vaccine recombinantAaron LePoire Other [facility]11-17-2022influenza virus vaccine, unspecified formulationDO Charan Casey Work Phone: [facility]11-17-2022influenza, seasonal, injectableRosalinda Torres MD Work Phone: [facility] Work Phone: [phone]vxn SARS-CoV-2 VaccinationRosalinda Torres MD Work Phone: [facility] Work Phone: [phone]-00 Moderna (BIvalent)Renée Fitt Other [facility]11-17-2022influenza, high dose seasonal, preservative-freeDawn Fitt Other [place] [employer] Other [id number], injectable, quadrivalent, preservative freeDawn Fitt Other noBarn[facility] [employer] Other [id number] COVID-19 Vaccine 100 MCG/0.5ML Intramuscular SuspensionBryan P Drive [employer] Work Phone: [facility]10-27-2021Moderna SARS-CoV-2 Booster VaccinationAllison Petznick DO Work Phone: noUniversity HospitalNikupxxjhl98-42-8213gzcpawwk influenza, intradermal, preservative freeBryan P Kuns Work Phone: [phone]-KuwglJamie [place] [address] DO Work Phone: [phone]-17 Vaccine Moderna - Documentation Purposes OnlyThomas Felter Other [facility]12-30-2020Moderna COVID-19 Vaccine 100 MCG/0.5ML Intramuscular SuspensionBryan P Drive [employer] Work Phone: [facility]10-01-2019influenza virus vaccine, unspecified formulationBryan P Kuns Work Phone: mp-[facility] 250 DO Work Phone: [phone]c, injectable, quadrivalent, preservative freeAllison Petznick DO Work Phone: noUniversity HospitalKsqsfsdtax48-24-5388hbycqibbb, seasonal, injectableThomas Felter Other [facility]10-01-2018influenza, seasonal, injectableThomas Felter Other [facility]10-01-2018influenza, seasonal, injectable, preservative freeAllison Petznick DO Work Phone: noUniversity HospitalLjxzbouqur66-10-9074psvjgbizi virus vaccine, unspecified formulationDO Charan BrysonTroopSwap Work Phone: [facility]01-03-2017influenza, seasonal, injectable, preservative freeCharan Casey Work Phone: [phone]-LdmhoOscar Ville [address] DO Work Phone: [phone]ngdsxaq conjugate vaccine, 13 valent Blas Ortiz Other [facility]01-03-2017influenza, high dose seasonal, preservative-freeBlas Ortiz Other [facility] [employer] Other [id number], injectable, quadrivalent, preservative freeDawn Fitt Other [place] [employer] Other [id number] polysaccharide vaccine, 23 valentYeisonan P Jacinto Work Phone: [phone]-TvurtOscar [place] [address] DO Work Phone: [phone]ypgs polysaccharide vaccine, 23 valentCharan Casey Work Phone: [facility]10-10-2012influenza virus vaccine, unspecified formulationDO Charan Casey Work Phone: [facility]10-10-2012tetanus toxoid, reduced diphtheria toxoid, and acellular pertussis vaccine, adsorbed Blas Ortiz Other [facility]10-10-2012influenza virus vaccine, split virus (incl. purified surface antigen)Blas Ortiz Other [facility] [employer] Other influenza virus vaccine, unspecified formulationCharan Casey Work Phone: [phone]-UeenwOscar V[place] [address] DO Work Phone: Comment on above:2010NEGATED: Highlighted row has not occurred!39-93-8984uhsdbehxc, injectable,quadrivalent, preservative free, pediatricThomas Felter Other [employer] Other Payers DatePayer CategoryPayerPolicy [id number] 2024MedicareUNITED HEALTHCARE MEDICARE UNITED HEALTHCARE MEDICARE [id number] 2024-Present [address] [place], [place] [id number] 2024Medicare (Managed Care)[id number] [id number] 2.16.840.1.801909.3.57[id number] 2.16.840.1.505901.3.57[id number] 2.16.840.1.248166.3.579.[id number] 2.16.840.1.041972.3.57[id number] 2.16.840.1.563430.3.57[id number] 2.16.840.1.403950.3.57[id number] 2.16.840.1.482917.3.57[id number] 2.16.840.1.685279.3.57[id number] 2.16.840.1.717151.3.57[id number] 2.16.840.1.799733.3.57[id number] 2.16.840.1.849605.3.57[id number] 2.16.840.1.397104.3.57[id number] 2.16.840.1.524232.3.57[id number] 2.16.840.1.599628.3.57[id number] 2.16.840.1.853667.3.57[id number] 2.16.840.1.891197.3.57[id number] 2.16.840.1.976526.3.57[id number] 2..840.1.144733.3.57[id number] 2.16840.1.831233.3.57[id number] 2.840.1.769230.19 [id number] Pay [id number] Social History DateTypeDetailFacilityStart: 12-04-2023 End: 94-69-7992Afhaakafed caffeine consumptionOccasional caffeine consumption [facility] HealthcareComment on above:Coffee;Start: 12-04-2023 End: 12-03-2044[facility]: 07-27-2022 End: 48-83-3534Dkclvqk smoking status NHISNever smoked tobacco (finding) [facility]: 59-53-8412Nsd [facility]: 05-19-2023 End: 27-11-1258Ttxetnm use and exposureSmokeless tobacco non-userUnOhioHealth [facility] Work Phone: Start: 12-04-2023 End: 32-44-9137Jhstlvs intakeLifetime non-drinker (finding)[facility] Work Phone: Start: 04-35-0152Duz Assigned At BirthNot on file [facility] Work Phone: Start: 02-12-2024 End: 80-72-4552Etuazsek to SARS-CoV-2 (event)Not sureOhio State East HospitalStart: 10-19-2024 End: 76-97-1628KnkOpdgkb (finding)[facility]Do you belong to any clubs or organizations such as mu-ism groups, unions, fraternal [...] the mortgage or rent on time?NoNOMS HealthcareStart: 28-74-2400Zozksdw Comment caffeine: 1-2 cups per day coffeeNOMS HealthcareStart: 63-44-2869Zoixbw identity Identifies as female gender (finding)[facility] Medical Equipment Procedure CodeEquipment CodeEquipment Original TextEquipment IdentifierDates Fusion, spine, lumbar, XLIFLATERAL STD 1 LEVEL CONSTRUCTFDAStart: 07-25-2020 Fusion, spine, lumbar, XLIFOrthopaedic bone screw, non-bioabsorbable, non-sterile+[id number] FDAStart: 68-68-9672Euygia, spine, lumbar, XLIFBone- screw internal spinal fixation system, non-sterile+[id number] FDAStart: 85-12-0655Gdlowp, spine, lumbar, XLIFSTRATOFUSE DBM 10CCFDAStart: 07-25-2020 Fusion, spine, lumbar, XLIFTIMBERLINE INTERBODYFDAStart: 33-70-5782Ddgfep, spine, lumbar, XLIFSpinal fusion graft kit [id number] FDAStart: 91-91-1574Dutcas, spine, lumbar, XLIFBone-screw internal spinal fixation system, non-sterile+[id number] FDAStart: 93-16-9023Ecgfgc, spine, lumbar, XLIFLATERAL STD 1 LEVEL CONSTRUCTFDA Start: 99-86-4171Mpjlzq, spine, lumbar, XLIFSTRATOFUSE DBM 10CCFDAStart: 53-56-5150Ydndtf, spine, lumbar, XLIFTIMBERLINE INTERBODYFDAStart: 07-25-2020 Fusion, spine, lumbar, XLIFLATERAL STD 1 LEVEL CONSTRUCTFDAStart: 07-25-2020 Fusion, spine, lumbar, XLIFSTRATOFUSE DBM 10CCFDAStart: 70-26-0411Ksmcpx, spine, lumbar, XLIFTIMBERLINE INTERBODYFDAStart: 54-59-6952Bbsaeh, spine, lumbar, XLIF LATERAL STD 1 LEVEL CONSTRUCTFDAStart: 88-42-0122Ilqwew, spine, lumbar, XLIF STRATOFUSE DBM 10CCFDAStart: 55-61-2210Mhxjbx, spine, lumbar, XLIFTIMBERLINE INTERBODYFDAStart: 37-28-9608Eerazt, spine, lumbar, XLIFLATERAL STD 1 LEVEL CONSTRUCTFDAStart: 49-64-7017Unzkpz, spine, lumbar, XLIFSTRATOFUSE DBM 10CCFDA Start: 36-61-5156Yswahw, spine, lumbar, XLIFTIMBERLINE INTERBODYFDAStart: 61-01-9688Qxgido, spine, lumbar, XLIFLATERAL STD 1 LEVEL CONSTRUCTFDAStart: 29-12-8583Saarja, spine, lumbar, XLIFSTRATOFUSE DBM 10CCFDAStart: 07-25-2020 Fusion, spine, lumbar, XLIFTIMBERLINE INTERBODYFDAStart: 37-20-2840Ktanlr, spine, lumbar, XLIFLATERAL STD 1 LEVEL CONSTRUCTFDAStart: 55-93-4069Saeeev, spine, lumbar, XLIFSTRATOFUSE DBM 10CCFDAStart: 10-10-6138Imqsba, spine, lumbar, XLIFTIMBERLINE INTERBODYFDAStart: 06-36-2761Wxadiw, spine, lumbar, XLIFLATERAL STD 1 LEVEL CONSTRUCTFDAStart: 35-54-5056Nqzzwh, spine, lumbar, XLIFSTRATOFUSE DBM 10CCFDAStart: 43-03-5030Dvsaev, spine, lumbar, XLIFTIMBERLINE INTERBODYFDA Start: 14-60-6022Ugfaur, spine, lumbar, XLIFLATERAL STD 1 LEVEL CONSTRUCTFDA Start: 14-23-4470Pjmmez, spine, lumbar, XLIFSTRATOFUSE DBM 10CCFDAStart: 95-85-0499Veggjg, spine, lumbar, XLIFTIMBERLINE INTERBODYFDAStart: 07-25-2020 Fusion, spine, lumbar, XLIFLATERAL STD 1 LEVEL CONSTRUCTFDAStart: 07-25-2020 Fusion, spine, lumbar, XLIFSTRATOFUSE DBM 10CCFDAStart: 35-92-7512Uuqmjb, spine, lumbar, XLIFTIMBERLINE INTERBODYFDAStart: 16-21-1336Sjimam, spine, lumbar, XLIF LATERAL STD 1 LEVEL CONSTRUCTFDAStart: 05-53-7601Ornfac, spine, lumbar, XLIF STRATOFUSE DBM 10CCFDAStart: 99-95-8960Ozlper, spine, lumbar, XLIFTIMBERLINE INTERBODYFDAStart: 30-63-8435Vlqbql, spine, lumbar, XLIFLATERAL STD 1 LEVEL CONSTRUCTFDAStart: 02-27-2716Qjmeje, spine, lumbar, XLIFSTRATOFUSE DBM 10CCFDA Start: 50-53-4250Kwfzvw, spine, lumbar, XLIFTIMBERLINE INTERBODYFDAStart: 68-42-2253Bmmabt, spine, lumbar, XLIFLATERAL STD 1 LEVEL CONSTRUCTFDAStart: 46-86-0241Junhmv, spine, lumbar, XLIFSTRATOFUSE DBM 10CCFDAStart: 07-25-2020 Fusion, spine, lumbar, XLIFTIMBERLINE INTERBODYFDAStart: 86-91-9571Oqpfkh, spine, lumbar, XLIFLATERAL STD 1 LEVEL CONSTRUCTFDAStart: 98-73-2131Xzrgwz, spine, lumbar, XLIFSTRATOFUSE DBM 10CCFDAStart: 25-15-9236Lmlmdj, spine, lumbar, XLIFTIMBERLINE INTERBODYFDAStart: 11-67-3317Gineco, spine, lumbar, XLIFLATERAL STD 1 LEVEL CONSTRUCTFDAStart: 35-22-0341Jbbnet, spine, lumbar, XLIFSTRATOFUSE DBM 10CCFDAStart: 77-23-9058Dgliil, spine, lumbar, XLIFTIMBERLINE INTERBODYFDA Start: 58-64-2118Uvaanr, spine, lumbar, XLIFLATERAL STD 1 LEVEL CONSTRUCTFDA Start: 56-84-0087Kmhqtp, spine, lumbar, XLIFSTRATOFUSE DBM 10CCFDAStart: 65-59-8188Tifajl, spine, lumbar, XLIFTIMBERLINE INTERBODYFDAStart: 07-25-2020 Fusion, spine, lumbar, XLIFLATERAL STD 1 LEVEL CONSTRUCTFDAStart: 07-25-2020 Fusion, spine, lumbar, XLIFSTRATOFUSE DBM 10CCFDAStart: 10-26-9632Uniflx, spine, lumbar, XLIFTIMBERLINE INTERBODYFDAStart: 19-14-2648Xxrrjd, spine, lumbar, XLIF LATERAL STD 1 LEVEL CONSTRUCTFDAStart: 49-34-5209Fvqebd, spine, lumbar, XLIF STRATOFUSE DBM 10CCFDAStart: 03-73-6462Hnyeyl, spine, lumbar, XLIFTIMBERLINE INTERBODYFDAStart: 88-91-4475Jostoy, spine, lumbar, XLIFLATERAL STD 1 LEVEL CONSTRUCTFDAStart: 40-87-6726Dbcgqc, spine, lumbar, XLIFSTRATOFUSE DBM 10CCFDA Start: 46-85-4834Ggojrb, spine, lumbar, XLIFTIMBERLINE INTERBODYFDAStart: 10-72-5154Uekkee, spine, lumbar, XLIFLATERAL STD 1 LEVEL CONSTRUCTFDAStart: 10-92-0359Gtwkmn, spine, lumbar, XLIFSTRATOFUSE DBM 10CCFDAStart: 07-25-2020 Fusion, spine, lumbar, XLIFTIMBERLINE INTERBODYFDAStart: 97-55-8884Ofifzq, spine, lumbar, XLIFLATERAL STD 1 LEVEL CONSTRUCTFDAStart: 73-12-9769Jfnvdz, spine, lumbar, XLIFSTRATOFUSE DBM 10CCFDAStart: 71-18-4394Clspad, spine, lumbar, XLIFTIMBERLINE INTERBODYFDAStart: 72-66-3788Psosmz, spine, lumbar, XLIFLATERAL STD 1 LEVEL CONSTRUCTFDAStart: 40-77-0940Yzvxfc, spine, lumbar, XLIFSTRATOFUSE DBM 10CCFDAStart: 71-58-9405Qibxke, spine, lumbar, XLIFTIMBERLINE INTERBODYFDA Start: 91-05-4529Wyeahj, spine, lumbar, XLIFLATERAL STD 1 LEVEL CONSTRUCTFDA Start: 51-04-3160Slpurs, spine, lumbar, XLIFSTRATOFUSE DBM 10CCFDAStart: 29-16-8656Lvoiwy, spine, lumbar, XLIFTIMBERLINE INTERBODYFDAStart: 07-25-2020 Fusion, spine, lumbar, XLIFLATERAL STD 1 LEVEL CONSTRUCTFDAStart: 07-25-2020 Fusion, spine, lumbar, XLIFSTRATOFUSE DBM 10CCFDAStart: 92-64-5867Ufbeaz, spine, lumbar, XLIFTIMBERLINE INTERBODYFDAStart: 17-61-3772Fmqylt, spine, lumbar, XLIF LATERAL STD 1 LEVEL CONSTRUCTFDAStart: 20-57-1186Shrbab, spine, lumbar, XLIF STRATOFUSE DBM 10CCFDAStart: 78-26-0159Zzfyhr, spine, lumbar, XLIFTIMBERLINE INTERBODYFDAStart: 28-60-7060Rbbbjn, spine, lumbar, XLIFLATERAL STD 1 LEVEL CONSTRUCTFDAStart: 66-17-3894Kemljh, spine, lumbar, XLIFSTRATOFUSE DBM 10CCFDA Start: 86-30-8666Mtlayv, spine, lumbar, XLIFTIMBERLINE INTERBODYFDAStart: 13-15-9999Njmgao, spine, lumbar, XLIFLATERAL STD 1 LEVEL CONSTRUCTFDAStart: 76-91-0651Rggawa, spine, lumbar, XLIFSTRATOFUSE DBM 10CCFDAStart: 07-25-2020 Fusion, spine, lumbar, XLIFTIMBERLINE INTERBODYFDAStart: 18-11-4699Fdxios, spine, lumbar, XLIFLATERAL STD 1 LEVEL CONSTRUCTFDAStart: 48-94-7080Yvmufe, spine, lumbar, XLIFSTRATOFUSE DBM 10CCFDAStart: 13-88-6155Azlaue, spine, lumbar, XLIFTIMBERLINE INTERBODYFDAStart: 06-70-5343Rciejf, spine, lumbar, XLIFLATERAL STD 1 LEVEL CONSTRUCTFDAStart: 82-24-6161Sglrzn, spine, lumbar, XLIFSTRATOFUSE DBM 10CCFDAStart: 74-66-7322Ufbmtm, spine, lumbar, XLIFTIMBERLINE INTERBODYFDA Start: 52-27-9468Chdrem, spine, lumbar, XLIFLATERAL STD 1 LEVEL CONSTRUCTFDA Start: 65-61-8417Jwbexu, spine, lumbar, XLIFSTRATOFUSE DBM 10CCFDAStart: 97-25-3227Vvvcvj, spine, lumbar, XLIFTIMBERLINE INTERBODYFDAStart: 07-25-2020 Fusion, spine, lumbar, XLIFLATERAL STD 1 LEVEL CONSTRUCTFDAStart: 07-25-2020 Fusion, spine, lumbar, XLIFSTRATOFUSE DBM 10CCFDAStart: 75-15-4013Vamnze, spine, lumbar, XLIFTIMBERLINE INTERBODYFDAStart: 85-06-3687Utmafb, spine, lumbar, XLIF LATERAL STD 1 LEVEL CONSTRUCTFDAStart: 97-42-7282Uvioet, spine, lumbar, XLIF STRATOFUSE DBM 10CCFDAStart: 10-04-6553Dqeyym, spine, lumbar, XLIFTIMBERLINE INTERBODYFDAStart: 26-95-5787Zvjnpr, spine, lumbar, XLIFLATERAL STD 1 LEVEL CONSTRUCTFDAStart: 65-29-4555Klcnon, spine, lumbar, XLIFSTRATOFUSE DBM 10CCFDA Start: 96-49-3569Vtfrmb, spine, lumbar, XLIFTIMBERLINE INTERBODYFDAStart: 86-22-8114Cvmctv, spine, lumbar, XLIFLATERAL STD 1 LEVEL CONSTRUCTFDAStart: 64-82-8848Khaacb, spine, lumbar, XLIFSTRATOFUSE DBM 10CCFDAStart: 07-25-2020 Fusion, spine, lumbar, XLIFTIMBERLINE INTERBODYFDAStart: 03-75-4094Zhwxos, spine, lumbar, XLIFLATERAL STD 1 LEVEL CONSTRUCTFDAStart: 74-99-6757Uibejc, spine, lumbar, XLIFSTRATOFUSE DBM 10CCFDAStart: 73-69-6779Yzokkz, spine, lumbar, XLIFTIMBERLINE INTERBODYFDAStart: 25-00-0708Aucbja, spine, lumbar, XLIFLATERAL STD 1 LEVEL CONSTRUCTFDAStart: 18-98-3015Nivagj, spine, lumbar, XLIFSTRATOFUSE DBM 10CCFDAStart: 65-71-6872Jxcgqq, spine, lumbar, XLIFTIMBERLINE INTERBODYFDA Start: 30-83-7767Hsjbeu, spine, lumbar, XLIFLATERAL STD 1 LEVEL CONSTRUCTFDA Start: 88-72-6176Rntrvm, spine, lumbar, XLIFSTRATOFUSE DBM 10CCFDAStart: 85-52-6864Obvhai, spine, lumbar, XLIFTIMBERLINE INTERBODYFDAStart: 07-25-2020 Fusion, spine, lumbar, XLIFLATERAL STD 1 LEVEL CONSTRUCTFDAStart: 07-25-2020 Fusion, spine, lumbar, XLIFSTRATOFUSE DBM 10CCFDAStart: 69-76-4640Dsbgyi, spine, lumbar, XLIFTIMBERLINE INTERBODYFDAStart: 63-75-1796Atbpsu, spine, lumbar, XLIF LATERAL STD 1 LEVEL CONSTRUCTFDAStart: 52-21-4108Vbkilp, spine, lumbar, XLIF STRATOFUSE DBM 10CCFDAStart: 12-68-7397Mvpyws, spine, lumbar, XLIFTIMBERLINE INTERBODYFDAStart: 06-22-5820Nzkfnv, spine, lumbar, XLIFLATERAL STD 1 LEVEL CONSTRUCTFDAStart: 29-25-8712Vxcfie, spine, lumbar, XLIFSTRATOFUSE DBM 10CCFDA Start: 61-36-2195Yuszok, spine, lumbar, XLIFTIMBERLINE INTERBODYFDAStart: 45-38-6833Pvdhmb, spine, lumbar, XLIFLATERAL STD 1 LEVEL CONSTRUCTFDAStart: 05-54-6805Qggjri, spine, lumbar, XLIFSTRATOFUSE DBM 10CCFDAStart: 07-25-2020 Fusion, spine, lumbar, XLIFTIMBERLINE INTERBODYFDAStart: 70-00-6553Risxfu, spine, lumbar, XLIFLATERAL STD 1 LEVEL CONSTRUCTFDAStart: 85-68-5362Xooqss, spine, lumbar, XLIFSTRATOFUSE DBM 10CCFDAStart: 80-44-1650Xmloup, spine, lumbar, XLIFTIMBERLINE INTERBODYFDAStart: 16-33-9708Svezah, spine, lumbar, XLIFLATERAL STD 1 LEVEL CONSTRUCTFDAStart: 46-56-6621Hnhkko, spine, lumbar, XLIFSTRATOFUSE DBM 10CCFDAStart: 49-58-6917Dglmas, spine, lumbar, XLIFTIMBERLINE INTERBODYFDA Start: 26-70-8353Awnbbc, spine, lumbar, XLIFLATERAL STD 1 LEVEL CONSTRUCTFDA Start: 96-61-5242Wndmuk, spine, lumbar, XLIFSTRATOFUSE DBM 10CCFDAStart: 93-09-8046Gbvuvo, spine, lumbar, XLIFTIMBERLINE INTERBODYFDAStart: 07-25-2020 Fusion, spine, lumbar, XLIFLATERAL STD 1 LEVEL CONSTRUCTFDAStart: 07-25-2020 Fusion, spine, lumbar, XLIFSTRATOFUSE DBM 10CCFDAStart: 69-94-4065Awlbfy, spine, lumbar, XLIFTIMBERLINE INTERBODYFDAStart: 84-94-3931Txzphk, spine, lumbar, XLIF LATERAL STD 1 LEVEL CONSTRUCTFDAStart: 25-77-6848Bmqock, spine, lumbar, XLIF STRATOFUSE DBM 10CCFDAStart: 40-78-9055Hyzbmx, spine, lumbar, XLIFTIMBERLINE INTERBODYFDAStart: 98-72-3666Ehlxjz, spine, lumbar, XLIFLATERAL STD 1 LEVEL CONSTRUCTFDAStart: 01-47-4244Aiexen, spine, lumbar, XLIFSTRATOFUSE DBM 10CCFDA Start: 67-24-5273Wfvkho, spine, lumbar, XLIFTIMBERLINE INTERBODYFDAStart: 89-17-028245677595, 13608907Glejo: 08-11-2013 End: 20-73-7236Zglk-eluting coronary artery stent, cle-fsunvliivshny-dqpdqaa-coated()[id number] FDAStart: 95-19-6335Ubupklv artery closure plug/patch, synthetic polymer()[id number] FDAStart: 23-77-0578Tdt Needle, Diabetic (Ulticare Pen Needle) 31 gauge x 3/16 needleStart: 68-42-4227Qcj Needle, Diabetic (Ulticare Pen Needle) 31 gauge x 3/16 needleStart: 05-13-2024 End: 62-64-8649Pkn Needle, Diabetic (Ulticare Pen Needle) 31 gauge x 3/16 needleStart: 02-66-3373Ccd Needle, Diabetic (Ulticare Pen Needle) 31 gauge x 3/16 needleStart: 05-13-2024 End: 34-75-7607Rdz Needle, Diabetic (Ulticare Pen Needle) 31 gauge x 3/16 needleStart: 36-15-7061Xai Needle, Diabetic (Ulticare Pen Needle) 31 gauge x 3/16 needleStart: 05-13-2024 End: 00-25-3659Vmf Needle, Diabetic (Ulticare Pen Needle) 31 gauge x 3/16 needleStart: 89-81-9616Wlz Needle, Diabetic (Ulticare Pen Needle) 31 gauge x 3/16 needleStart: 05-13-2024 End: 80-66-0987Que Needle, Diabetic (Ulticare Pen Needle) 31 gauge x 3/16 needleStart: 41-65-6387Opa Needle, Diabetic (Ulticare Pen Needle) 31 gauge x 3/16 needleStart: 05-13-2024 End: 16-54-0628Vtu Needle, Diabetic (Ulticare Pen Needle) 31 gauge x 3/16 needleStart: 28-11-3097Xoe Needle, Diabetic (Ulticare Pen Needle) 31 gauge x 3/16 needleStart: 05-13-2024 End: 11-74-6664Zxj Needle, Diabetic (Ulticare Pen Needle) 31 gauge x 3/16 needleStart: 49-10-2665Log Needle, Diabetic (Ulticare Pen Needle) 31 gauge x 3/16 needleStart: 05-13-2024 End: 76-25-6782Cld Needle, Diabetic (Ulticare Pen Needle) 31 gauge x 3/16 needleStart: 05-13-2024 End: 75-79-3774Tvc Needle, Diabetic (Ulticare Pen Needle) 31 gauge x 3/16 needleStart: 75-03-4475Sap Needle, Diabetic 31 gauge x 5/16 needleStart: 32-56-3885Unl Needle, Diabetic (Ulticare Pen Needle) 31 gauge x 3/16 needle Start: 05-13-2024 End: 66-11-6138Ask Needle, Diabetic (Ulticare Pen Needle) 31 gauge x 3/16 needleStart: 05-13-2024 End: 96-77-7958Kvq Needle, Diabetic 31 gauge x 5/16 needleStart: 09-12-2024 End: 45-16-6555Cgh Needle, Diabetic (Ulticare Pen Needle) 31 gauge x 3/16 needleStart: 19-49-9412Ukl Needle, Diabetic 31 gauge x 5/16 needleStart: 82-32-4086Hek Needle, Diabetic (Ulticare Pen Needle) 31 gauge x 3/16 needle Start: 05-13-2024 End: 02-51-7454Hak Needle, Diabetic (Ulticare Pen Needle) 31 gauge x 3/16 needleStart: 05-13-2024 End: 80-03-0488Cpe Needle, Diabetic 31 gauge x 5/16 needleStart: 09-12-2024 End: 62-34-0280Qtr Needle, Diabetic (Ulticare Pen Needle) 31 gauge x 3/16 needleStart: 60-98-1559Ebs Needle, Diabetic 31 gauge x 5/16 needleStart: 77-62-0846Qcs Needle, Diabetic (Ulticare Pen Needle) 31 gauge x 3/16 needle Start: 05-13-2024 End: 14-57-8446Lym Needle, Diabetic (Ulticare Pen Needle) 31 gauge x 3/16 needleStart: 05-13-2024 End: 70-81-8513Gtj Needle, Diabetic 31 gauge x 5/16 needleStart: 09-12-2024 End: 23-31-0126Pfd Needle, Diabetic (Ulticare Pen Needle) 31 gauge x 3/16 needleStart: 90-56-2342Viw Needle, Diabetic 31 gauge x 5/16 needleStart: 97-71-8664Lqz Needle, Diabetic (Ulticare Pen Needle) 31 gauge x 3/16 needle Start: 05-13-2024 End: 26-49-5213Afu Needle, Diabetic (Ulticare Pen Needle) 31 gauge x 3/16 needleStart: 05-13-2024 End: 31-72-8803Dul Needle, Diabetic 31 gauge x 5/16 needleStart: 09-12-2024 End: 62-91-3420Jrv Needle, Diabetic (Ulticare Pen Needle) 31 gauge x 3/16 needleStart: 93-02-9653Del Needle, Diabetic 31 gauge x 5/16 needleStart: 93-46-2395Mnv Needle, Diabetic (Ulticare Pen Needle) 31 gauge x 3/16 needle Start: 05-13-2024 End: 52-72-8655Fqk Needle, Diabetic (Ulticare Pen Needle) 31 gauge x 3/16 needleStart: 05-13-2024 End: 58-64-0689Vza Needle, Diabetic 31 gauge x 5/16 needleStart: 09-12-2024 End: 82-53-2366Egk Needle, Diabetic (Ulticare Pen Needle) 31 gauge x 3/16 needleStart: 22-58-3108Okz Needle, Diabetic 31 gauge x 5/16 needleStart: 23-87-7159Fgq Needle, Diabetic (Ulticare Pen Needle) 31 gauge x 3/16 needle Start: 05-13-2024 End: 06-10-0900Moi Needle, Diabetic (Ulticare Pen Needle) 31 gauge x 3/16 needleStart: 05-13-2024 End: 23-84-8102Crl Needle, Diabetic 31 gauge x 5/16 needleStart: 09-12-2024 End: 14-29-5099Xyv Needle, Diabetic (Ulticare Pen Needle) 31 gauge x 3/16 needleStart: 76-57-6150Tbk Needle, Diabetic 31 gauge x 5/16 needleStart: 75-55-2052Jka Needle, Diabetic (Ulticare Pen Needle) 31 gauge x 3/16 needle Start: 05-13-2024 End: 92-73-9475Ivz Needle, Diabetic (Ulticare Pen Needle) 31 gauge x 3/16 needleStart: 05-13-2024 End: 68-17-4594Wiv Needle, Diabetic 31 gauge x 5/16 needleStart: 09-12-2024 End: 89-66-3151Bpg Needle, Diabetic (Ulticare Pen Needle) 31 gauge x 3/16 needleStart: 29-40-7074Bfq Needle, Diabetic 31 gauge x 5/16 needleStart: 50-91-0100Lbw Needle, Diabetic (Ulticare Pen Needle) 31 gauge x 3/16 needle Start: 05-13-2024 End: 72-19-7605Yqh Needle, Diabetic (Ulticare Pen Needle) 31 gauge x 3/16 needleStart: 05-13-2024 End: 61-67-2313Idz Needle, Diabetic 31 gauge x 5/16 needleStart: 09-12-2024 End: 91-23-2393Jum Needle, Diabetic (Ulticare Pen Needle) 31 gauge x 3/16 needleStart: 38-22-5583Qis Needle, Diabetic 31 gauge x 5/16 needleStart: 15-64-9861Aim Needle, Diabetic (Ulticare Pen Needle) 31 gauge x 3/16 needle Start: 05-13-2024 End: 85-84-2817Djg Needle, Diabetic (Ulticare Pen Needle) 31 gauge x 3/16 needleStart: 05-13-2024 End: 03-96-4844Hls Needle, Diabetic 31 gauge x 5/16 needleStart: 09-12-2024 End: 89-40-8348Zcy Needle, Diabetic (Ulticare Pen Needle) 31 gauge x 3/16 needleStart: 34-79-1843Cbi Needle, Diabetic 31 gauge x 5/16 needleStart: 98-18-2057Pgi Needle, Diabetic (Ulticare Pen Needle) 31 gauge x 3/16 needle Start: 05-13-2024 End: 73-63-2673Euw Needle, Diabetic (Ulticare Pen Needle) 31 gauge x 3/16 needleStart: 05-13-2024 End: 45-77-4226Lpf Needle, Diabetic 31 gauge x 5/16 needleStart: 09-12-2024 End: 98-29-4615Jdk Needle, Diabetic (Ulticare Pen Needle) 31 gauge x 3/16 needleStart: 90-92-2115Qwo Needle, Diabetic 31 gauge x 5/16 needleStart: 67-93-0512Ybl Needle, Diabetic (Ulticare Pen Needle) 31 gauge x 3/16 needle Start: 05-13-2024 End: 22-32-5725Hcl Needle, Diabetic (Ulticare Pen Needle) 31 gauge x 3/16 needleStart: 05-13-2024 End: 39-51-4207Obl Needle, Diabetic 31 gauge x 5/16 needleStart: 09-12-2024 End: 55-14-9715Cte Needle, Diabetic (Ulticare Pen Needle) 31 gauge x 3/16 needleStart: 30-39-0259Zuz Needle, Diabetic 31 gauge x 5/16 needleStart: 97-00-8588Sxa Needle, Diabetic (Ulticare Pen Needle) 31 gauge x 3/16 needle Start: 05-13-2024 End: 26-48-0313Nup Needle, Diabetic (Ulticare Pen Needle) 31 gauge x 3/16 needleStart: 05-13-2024 End: 73-86-0175Ope Needle, Diabetic 31 gauge x 5/16 needleStart: 09-12-2024 End: 48-58-0404Xvc Needle, Diabetic (Ulticare Pen Needle) 31 gauge x 3/16 needleStart: 92-01-1296Pul Needle, Diabetic 31 gauge x 5/16 needleStart: 12-90-5131Ets Needle, Diabetic (Ulticare Pen Needle) 31 gauge x 3/16 needle Start: 05-13-2024 End: 49-73-8616Qgo Needle, Diabetic (Ulticare Pen Needle) 31 gauge x 3/16 needleStart: 05-13-2024 End: 35-23-4858Szd Needle, Diabetic 31 gauge x 5/16 needleStart: 09-12-2024 End: 12-96-3484Fxw Needle, Diabetic (Ulticare Pen Needle) 31 gauge x 3/16 needleStart: 60-85-6150Ifz Needle, Diabetic 31 gauge x 5/16 needleStart: 98-55-3598Ftr Needle, Diabetic (Ulticare Pen Needle) 31 gauge x 3/16 needle Start: 05-13-2024 End: 90-24-4975Pve Needle, Diabetic (Ulticare Pen Needle) 31 gauge x 3/16 needleStart: 05-13-2024 End: 41-71-1055Pag Needle, Diabetic 31 gauge x 5/16 needleStart: 09-12-2024 End: 03-53-9949Gio Needle, Diabetic (Ulticare Pen Needle) 31 gauge x 3/16 needleStart: 20-17-3312Ysb Needle, Diabetic 31 gauge x 5/16 needleStart: 37-30-4538Fpb Needle, Diabetic (Ulticare Pen Needle) 31 gauge x 3/16 needle Start: 05-13-2024 End: 56-51-0998Nyf Needle, Diabetic (Ulticare Pen Needle) 31 gauge x 3/16 needleStart: 05-13-2024 End: 25-04-9939Lty Needle, Diabetic 31 gauge x 5/16 needleStart: 09-12-2024 End: 93-77-3955Xoc Needle, Diabetic (Ulticare Pen Needle) 31 gauge x 3/16 needleStart: 13-01-2190Hne Needle, Diabetic 31 gauge x 5/16 needleStart: 52-27-4747Ybl Needle, Diabetic (Ulticare Pen Needle) 31 gauge x 3/16 needle Start: 05-13-2024 End: 71-06-7810Yfk Needle, Diabetic (Ulticare Pen Needle) 31 gauge x 3/16 needleStart: 05-13-2024 End: 25-33-3663Apa Needle, Diabetic 31 gauge x 5/16 needleStart: 09-12-2024 End: 57-96-6530Utn Needle, Diabetic (Ulticare Pen Needle) 31 gauge x 3/16 needleStart: 40-70-7199Ylr Needle, Diabetic 31 gauge x 5/16 needleStart: 22-98-2808Zzi Needle, Diabetic (Ulticare Pen Needle) 31 gauge x 3/16 needle Start: 05-13-2024 End: 59-02-0241Sxk Needle, Diabetic (Ulticare Pen Needle) 31 gauge x 3/16 needleStart: 05-13-2024 End: 33-93-8489Vpm Needle, Diabetic 31 gauge x 5/16 needleStart: 09-12-2024 End: 28-19-8361Sie Needle, Diabetic (Ulticare Pen Needle) 31 gauge x 3/16 needleStart: 44-34-1091Peb Needle, Diabetic 31 gauge x 5/16 needleStart: 49-42-4286Xmv Needle, Diabetic (Ulticare Pen Needle) 31 gauge x 3/16 needle Start: 05-13-2024 End: 81-69-9073Qjl Needle, Diabetic (Ulticare Pen Needle) 31 gauge x 3/16 needleStart: 05-13-2024 End: 45-13-3032Rch Needle, Diabetic 31 gauge x 5/16 needleStart: 09-12-2024 End: 09-12-2024 Goals DatePatient GoalDesired Activity/State Functional Status Otuo[id number] Health Questionnaire 2 item (PHQ- 2) [Reported][facility] Clinical Notes 12-31-2014 to 07-27-2025 Note Date & [id number] History of Present illness Narrative* Shaina Munroe, [...] 2 diabetes mellitus with Charcot's joint arthropathy ([facility]) Long-term insulin use ([facility]) Spondylolisthesis at L3-L4 level S/P laparoscopic cholecystectomy Other hammer toe(s) (acquired), left foot Chronic foot ulcer ([facility]) Carpal tunnel syndrome of right wrist Class 2 severe obesity with serious comorbidity and body mass index (BMI) of 35.0 to 35.9 in adult ([facility]) Type 2 diabetes mellitus with both eyes affected by mild nonproliferative retinopathy without macular edema, with long-term current use of insulin ([facility]) Social History Tobacco Use Smoking status: Never [...] daily 50 units) (100 UNIT/ML SOPN) [facility] [place]HEMOGLOBIN.TOTAL:MFR:PT:BLD:QN: 8.1 Outpatient prescription [...] Charcot's joint arthropathy ([facility]) Long-term insulin use ([facility]) Class 2 severe obesity with serious comorbidity and body mass index (BMI) of 35.0 to 35.9 in adult ([facility]) Type 2 diabetes mellitus with both eyes affected by mild nonproliferative retinopathy without macular edema, with long-term current use of insulin ([facility]) Follow up in about 3 months (around [...] PO) Take by mouth CONTINUOUS BLOOD GLUC SOCIAL SECRETARY (DEXCOM G7 SOCIAL SECRETARY) DEVICE USE DIRECTED CONTINUOUS BLOOD GLUC SENSOR [...] the patient today. documented in this encounterSaint [facility] [id number] Evaluation note* Diagnosis Onset Date Resolution Status Admit Date Chronic pain acuteJuly 2024 8:03amSacroiliitis, not elsewhere classifiedacuteJuly 2024 8:03amTrochanteric bursitisacuteJuly 2024 8:03am [facility] Work Phone: [phone]) 534-503507-02-2025 Evaluation note* Diagnosis Onset Date Resolution Status Admit Date Chronic pain acuteJuly 2024 8:03amSacroiliitis, not elsewhere classifiedacuteJuly 2024 8:03amTrochanteric bursitisacuteJuly 2024 8:03amChronic painacuteJuly 2024 9:03amSacroiliitis, not elsewhere classifiedacuteJuly 2024 9:03amTrochanteric bursitisacuteJuly 2024 9:03am [facility] Work Phone: 1(520) 945-485607-02-2025 Evaluation note* Diagnosis Onset Date Resolution Status Admit Date Chronic pain acuteJuly 2024 8:03amSacroiliitis, not elsewhere classifiedacuteJuly 2024 8:03amTrochanteric bursitisacuteJuly 2024 8:03amChronic painacuteJuly 2024 9:03amSacroiliitis, not elsewhere classifiedacuteJuly 2024 9:03amTrochanteric bursitisacuteJuly 2024 9:03amDiabetic foot ulcer associated with type 2 diabetes mellitus, with fat layeacuteAugust 2024 7:36amMRSA bacteremiaacuteAugust 2024 7:36amOral thrushacuteAugust 2024 7:36am [facility] Work Phone: 1(417) 991-460306-16-2025 History of Present illness Narrative* Shaina Munroe [...] (BMI) of 35.0 to 35.9 in adult ([facility]) Type 2 diabetes mellitus with both eyes affected by mild nonproliferative retinopathy without macular edema, with long-term current use of insulin ([facility]) Social History Tobacco Use Smoking status: Never [...] units dinner (500 UNIT/ML SOPN) -Discontinued Labs [facility] [place]HEMOGLOBIN.TOTAL:MFR:PT:BLD:QN: 8.1 Outpatient prescription Medication marked as long-term Patient taking a medication differently The ASCVD Risk score (Duncan DK, et al., 2019) failed to calculate [...] KWIKPEN) 100 UNIT/ML injection insulin pen needle (TIDAL PETROLEUM UniUbidynee Pentips) 31G X 8 mm misc Other Relevant Orders POCT glycosylated hemoglobin (Hb A1C) docked device (Completed) 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) - Primary Long-term insulin use ([facility]) Class 2 severe obesity with serious comorbidity and body mass index (BMI) of 35.0 to 35.9 in adult ([facility]) Type 2 diabetes mellitus with both eyes affected by mild nonproliferative retinopathy without macular edema, with long-term current use of insulin ([facility]) Follow up in about 3 months (around [...] PO) Take by mouth CONTINUOUS BLOOD GLUC SOCIAL SECRETARY (DEXCOM G7 SOCIAL SECRETARY) DEVICE USE DIRECTED CONTINUOUS BLOOD GLUC SENSOR [...] PENTIPS) 31G X 8 MM MISC Drug [place] Unifine Pentips 31G X 8 MMmisc Injection subcutaneous tid USE DIRECTED Discontinued Medications No medications on file I have reviewed and reconciled the history and medication list with the patient today. documented in this encounterSaint Mary's Health [id number] Evaluation note* Diagnosis Onset Date Resolution Status [...] back painacuteJuly 2024 8:03amTrochanteric bursitisacuteJuly 2024 8:03am [facility] Work Phone: 1(169) 528-640702-19-2025 Evaluation note* Diagnosis Onset Date Resolution Status [...] 06, 2025 7:41amSpondylolisthesis, lumbar regionacuteApril 2024 7:41am [facility] Work Phone: 1([phone]) 889-724802-10-2025 Evaluation note* Author France Carlson [facility] 2024 11:30amThe above note written by ITZ Teresa acting as human recorder, note dictated by Dr. Charan Casey. [facility] Work Phone: 1([phone]) 533-316902-10-2025 Telephone encounter Note* Telephone Encounter - Kati Clint - 01/09/2025 1:09 PM EST Pt's spouse called to ask if Dr. Merritt has any dexcom G7 sensors. She has been without for over aweek. Her prescription has been delayed due to insurance issues, She is having an injection tomorrow and is worried about her bg readings. [facility] [id number] Miscellaneous Notes* Telephone Encounter - Kati Jaramillo - 01/09/2025 1:09 PM EST Pt's spouse called to ask if Dr. Merritt has any dexcom G7 sensors. She has been without for over aweek. Her prescription has been delayed due to insurance issues, She is having an injection tomorrow and is worried about her bg readings. documented in this encounterSaint Mary's Health [id number] Evaluation note* Author France Carlson [facility] 2024 10:30amThe above note written by ITZ Teresa acting as human recorder, note dictated by Dr. Charan Casey. [facility] Work Phone: 1([phone]) 413-389411-20-2024 Evaluation note* Diagnosis Onset Date Resolution Status Admit Date Chronic pain acuteNovember 2023 8:01amOsteoarthritis of spine with radiculopathy, lumbar regionacuteNov2023 8:01amArthrosis of right acromioclavicular jointacuteNovember 2023 8:44amRotator cuff syndrome of right shoulder acuteNovember 2023 8:44amCoughacuteJanuary 2024 10:00amChronic pain acuteJanuary 2024 9:01amOsteoarthritis of spine with radiculopathy, lumbar regionacuteJanuary 2024 9:01am [facility] Work Phone: 1(752) 530-789911-20-2024 Evaluation note* Diagnosis Onset Date Resolution Status [...] of right shoulderacute December 29, 2024 7:33am [facility] Work Phone: 1(346) 515-684611-19-2024 History of Present illness Narrative* Shaina Munroe [...] Charcot's joint arthropathy (CMS/HCC) Long-term insulin use ([facility]) Class 2 severe obesity with serious comorbidity and body mass index (BMI) of 39.0 to 39.9 in adult ([facility]) Type 2 diabetes mellitus with both eyes affected by mild nonproliferative retinopathy without macular edema, with long-term current use of insulin ([facility]) Follow up in about 4 months (around 02/14/2025) for Recheck. Patient's Medications New Prescriptions No medications on file Previous Medications ALLOPURINOL (ZYLOPRIM) 100 MG TABLET Take 100 mg by mouth in the morning. ASPIRIN 81 MG CHEWABLE TABLET 1 (one) time each day at the same time. BENICAR 40 MG TABLET 1 (one) time each day at the same time. CONTINUOUS BLOOD GLUC SOCIAL SECRETARY (DEXCOM G7 SOCIAL SECRETARY) DEVICE USE DIRECTED CONTINUOUS BLOOD GLUC SENSOR [...] the patient today. documented in this encounterSaint Mary's Health [id number] [facility] noteHolzer Hospital10-14-2024 Evaluation note* Diagnosis Onset Date Resolution Status Admit Date Chronic pain acuteOctober 2023 8:03amOsteoarthritis of spine with radiculopathy, lumbar regionacuteOctober 2023 8:03amSacroiliitis, not elsewhere classifiedacute September 12, 2024 8:03amChronic painacuteNovember 2023 8:01am Osteoarthritis of spine with radiculopathy, lumbar regionacuteNovember 2023 8:01am [facility] Work Phone: 1(137) 555-285210-14-2024 Evaluation note* Diagnosis Onset Date Resolution Status Admit Date Chronic pain acuteOctober 2023 8:03amOsteoarthritis of spine with radiculopathy, lumbar regionacuteOctober 2023 8:03amSacroiliitis, not elsewhere classifiedacute September 12, 2024 8:03amChronic painacuteNovember 2023 8:01am Osteoarthritis of spine with radiculopathy, lumbar regionacuteNovember 2023 8:01amArthrosis of right acromioclavicular jointacuteNov2023 8:44amRotator cuff syndrome of right shoulderacuteNov2023 8:44am [facility] Work Phone: 1(480) 216-417410-14-2024 Evaluation note* Diagnosis Onset Date Resolution Status Admit Date Chronic pain acuteOctober 2023 8:03amOsteoarthritis of spine with radiculopathy, lumbar regionacuteOctober 2023 8:03amSacroiliitis, not elsewhere classifiedacute September 12, 2024 8:03amChronic painacuteNovember 2023 8:01am Osteoarthritis of spine with radiculopathy, lumbar regionacuteNovember 2023 8:01amArthrosis of right acromioclavicular jointacuteNovember 2023 8:44amRotator cuff syndrome of right shoulderacuteNovember 2023 8:44am CoughacuteJanuary 2024 10:00am [facility] Work Phone: 1(147) 381-313709-26-2024 History of Present illness Narrative* Rosalinda Torres [...] remains way above target and due to Kcjwfdu-Gozew-Bnfqy joints she has limited exercise capacity. Her [...] machine patient has been compliant with it. 6-Ydqizjj-Pxdnz-Tooth joint in the ankles status post recent [...] , Rfl: ergocalciferol (Vitamin D-2) 1.25 MG (58408 UT) capsule, Take 1 capsule (50,000 Units) [...] type, unspecified whether angina present, unspecified whether wales or transplanted heart Follow Up In Cardiology [...] and plan. documented in this [facility] Work Phone: 1([phone]) 872-946709-26-2024 Instructions* Patient Instructions* Enedina Isidro LPN - [...] on exercise. documented in this [facility] Work Phone: 1(276) 736-703307-02-2024 Procedure noteHolzer Hospital03-25-2024 History of Present illness Narrative* Rosalinda [...] She has orthopedic problems resulting from her Fpicgzy-Fqnod-Vcawy disease. Her labs have been followed closely. [...] machine patient has been compliant with it. 5-Opivfxp-Lvize-Tooth joint in the ankles status post recent [...] , Rfl: ergocalciferol (Vitamin D-2) 1.25 MG (46900 UT) capsule, Take 1 capsule (50,000 Units) [...] type, unspecified whether angina present, unspecified whether wales or transplanted heart Follow Up In Cardiology 2. Essential hypertension 3. 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 4. Hyperlipidemia, unspecified hyperlipidemia type 5. Obstructive sleep apnea syndrome 6. Class 2 obesity with body mass index (BMI) of 37.0 to 37.9 in adult, unspecified obesity type, unspecified whether serious comorbidity present 7. Insulin-requiring or dependent type II diabetes mellitus ([facility]) Scribe Attestation By signing my name below, [...] and plan. documented in this [facility] Work Phone: 1(502) 336-177103-25-2024 Instructions* Patient Instructions* Enedina Isidro LPN - [...] 6 m Same medications [facility] Work Phone: 1(124) 744-731801-31-2024 Evaluation note* Encounter Date Diagnosis Assessment Notes [...] to call if she does not improve. [employer] Other 12-05-2023 Evaluation note* Encounter Date Diagnosis Assessment Notes Treatment Notes Treatment Clinical Notes Oct, Hyperlipidemia (ICD-10 - E78.5) [employer] Other 11-29-2023 Evaluation note* Encounter Date Diagnosis Assessment Notes Treatment Notes Treatment Clinical Notes Sep, Trochanteric bursitis of left hi p (ICD-10 - M70.62) [employer] Other 11-29-2023 Evaluation note* Encounter Date [...] Sep,OtherAbove note written by Willi Leiva MA, Hand Potter. Edited and approved by Dr. Blas Ortiz MD. [employer] Other 11-22-2023 Evaluation note* Encounter Date [...] of symptoms occur by end of treatment. [employer] Other 11-20-2023 Evaluation note* Encounter Date Diagnosis Assessment Notes Treatment Notes Treatment Clinical Notes Sep, Cervical spondylosis without mye lopathy (ICD-10 - M47.812) [employer] Other 11-08-2023 Evaluation note* Encounter Date Diagnosis Assessment Notes Treatment Notes Treatment Clinical Notes Sep, Hypertensive chronic kidney disease with stage 1 through stage 4 chronic kidney disease, or unspecified chronic kidney disease (ICD-10 - I12.9) [employer] Other 11-07-2023 History and physical note Author Yasmeen Treadwell [facility] October 06, 2023 8:31amNote Date/TimeNov2022 8:31[place] [id number] Gastroenterology H&P Signed Patient: Rita Cobb MR#: [id number] [birth year] : 1960 Acct:[id number] Age/Sex: 62 / F Adm Date: 3 Loc: Room: Type: [facility] Attending Dr: Yasmeen Treadwell MD Copies to: [...] signed by Yasmeen Treadwell MD> 10/06/23 0831 [facility] Work Phone: 1(702) 435-203511-07-2023 Procedure noteHolzer Hospital10-25-2023 Evaluation note* Encounter Date Diagnosis Assessment [...] Aug,OtherAbove note written by Corina Sánchez LPN, Hand Potter. Edited and approved by Dr. Blas Ortiz MD. [employer] Other 10-17-2023 Evaluation note* Encounter Date Diagnosis [...] risk of worsening renal function and hematuria. [employer] Other 09-19-2023 Evaluation note* Encounter Date Diagnosis Assessment Notes Treatment Notes Treatment Clinical Notes Jul, Hyperuricemia (ICD-10 - E79.0) Jul,iabetic neuropathy (ICD-10 - E11.40) [employer] Other 09-18-2023 Evaluation note* Encounter Date [...] Jul,OtherAbove note written by Corina Sánchez LPN, Hand Potter. Edited and approved by Dr. Blas Ortiz MD. [employer] Other 09-12-2023 Evaluation note* Encounter Date [...] Jul,Low back pain, unspecified (ICD-10 - M54.50) [employer] Other 09-06-2023 Evaluation note* Encounter Date [...] Jul,Screening for colon cancer (ICD-10 - Z12.11) [employer] Other 08-03-2023 Evaluation note* Encounter Date Diagnosis Assessment Notes Treatment Notes Treatment Clinical Notes Jun, Type 2 diabetes wicho itus with diabetic neuropathy, unspecified (ICD-10 - E11.40) [employer] Other 06-20-2023 Evaluation note* Encounter Date [...] M47.812) Refill provided of the above medication. [employer] Other 06-06-2023 Evaluation note* Encounter Date Diagnosis Assessment Notes Treatment Notes Treatment Clinical Notes Apr, Type 2 diabetes wicho itus with diabetic neuropathy, unspecified (ICD-10 - E11.40) [employer] Other 05-15-2023 NotePROCEDURE: XR FOOT LT 2V HISTORY: Pain COMPARISON: XR foot left 04/07/2023 FINDINGS: BONES:Several intraoperative spot fluoroscopic images demonstrate removal of 3 separate lag screws fixating the second and fourth metatarsophalangeal joints. SOFT TISSUES:Expected intraoperative findings. OTHER: Negative. IMPRESSION: 1. Hardware revision involving left midfoot. Electronically authenticated by: BLANKA OGLUIN Date: 2023-04-13 11:35[facility]05-15-2023 NotePROCEDURE: XR FOOT LT MIN 3 [...] Electronically authenticated by: BLANKA OLGUIN Date: 2023-04-13 11:29[facility]05-09-2023 NotePROCEDURE: XR FOOT LT MIN 3 [...] Electronically authenticated by: BLANKA OLGUIN Date: 2023-04-07 13:31[facility]05-08-2023 Evaluation note* Encounter Date Diagnosis Assessment Notes Treatment Notes Treatment Clinical Notes March, Type 2 diabetes wicho itus with diabetic neuropathy, unspecified (ICD-10 - E11.40) March,Type 2 diabetes mellitus with hyperglycemia, without long-term current use of insulin (ICD-10 - E11.65) [employer] Other 05-02-2023 Evaluation note* Encounter Date [...] as scheduled. Most recent A1C was 7.0. [employer] Other 04-27-2023 Evaluation note* Encounter Date Diagnosis Assessment Notes Treatment Notes Treatment Clinical Notes Feb, Hypertensive chronic kidney disease with stage 1 through stage 4 chronic kidney disease, or unspecified chronic kidney disease (ICD-10 - I12.9) Feb,Type 2 diabetes mellitus with diabetic neuropathy, unspecified (ICD- 10 - E11.40) [employer] Other 04-11-2023 Evaluation note* Encounter Date [...] have advised to continue with oral magnesium. [employer] Other 04-05-2023 Evaluation note* Encounter Date Diagnosis Assessment Notes Treatment Notes Treatment Clinical Notes Feb, Hyperlipidemia (ICD-10 - E78.5) [employer] Other 04-05-2023 Evaluation note* Encounter Date Diagnosis Assessment Notes Treatment Notes Treatment Clinical Notes Feb, Obstructive apnea (ICD-10 - G47. 33) Feb,Insomnia (ICD-10 - G47.00) Feb,Neuropathy (ICD-10 - G62.9) [employer] Other 04-05-2023 NotePROCEDURE: XR FOOT LT [...] Electronically authenticated by: BLANKA OLGUIN Date: 2023-03-04 06:39[facility]03-20-2023 Evaluation note* Encounter Date Diagnosis Assessment Notes Treatment Notes Treatment Clinical Notes Jan, Hypertensive chronic kidney disease with stage 1 through stage 4 chronic kidney disease, or unspecified chronic kidney disease (ICD-10 - I12.9) Jan,iabetic neuropathy (ICD-10 - E11.40) [employer] Other 03-09-2023 Evaluation note* Encounter Date Diagnosis Assessment Notes Treatment Notes Treatment Clinical Notes Jan, Hyperuricemia (ICD-10 - E79.0) [employer] Other 03-08-2023 NotePROCEDURE: XR FOOT LT [...] Electronically authenticated by: BRODERICK FLOR Date: 2023-02-04 09:36[facility]02-22-2023 NotePROCEDURE: XR FOOT LT MIN 3 [...] Electronically authenticated by: BLANKA OLGUIN Date: 2023-01-21 10:26[facility]02-20-2023 Evaluation note* Encounter Date Diagnosis Assessment Notes Treatment Notes Treatment Clinical Notes Dec, Diabetic neuropathy (ICD-10 - E1 1.40) [employer] Other [id number] NotePROCEDURE: XR FOOT LT MIN 3 VIEWS, [...] Electronically authenticated by: BLANKA OLGUIN Date: 2022-12-29 17:33[facility]01-30-2023 NotePROCEDURE: XR FOOT LT MIN 3 [...] Electronically authenticated by: BLANKA OLGUIN Date: 2022-12-29 17:33[facility]01-30-2023 NotePROCEDURE: XR FOOT LT 2V HISTORY: Pain COMPARISON: XR foot bilateral 11/12/2022 FINDINGS: BONES:Multiple intraoperative spot fluoroscopic images demonstrate resection of the bases of the metatarsals followed by midfoot fusion via lag screws. Talocalcaneal fusion. SOFT TISSUES:Expected intraoperative findings. IMPRESSION: 1. Midfoot resection and fusion. 2. Talocalcaneal fusion. Electronically authenticated by: BLANKA OLGUIN Date: 2022-12-29 17:31[facility]01-24-2023 NoteEXAM: XR CHEST 2 V HISTORY: [...] Electronically authenticated by: ACOSTA JOHNSON Date: 2022-12-23 12:48[facility]11-29-2022 Evaluation note* Encounter Date Diagnosis Assessment Notes Treatment Notes Treatment Clinical Notes Sep, Encounter for immunization (ICD- 10 - Z23) Patient presents today for Shingrix vaccination #1 of 2. Patient denies current acute illness, denies any past allergy or serious reaction to previousvaccine or ingredients. Shingrix Vaccine material and current VIS discussed and provided to patient. [employer] Other 11-17-2022 Evaluation note* Encounter Date Diagnosis Assessment Notes Treatment Notes Treatment Clinical Notes Sep, Encounter for immunization (ICD- 10 - Z23) Patient denies current illness, previous allergic reaction to influenza vaccine, eggs, or other vaccines, and Guillain-[place] Syndrome. Patient given current editions of influenza Vaccine Information Statement (VIS). [employer] Other 11-17-2022 Evaluation note* Encounter Date Diagnosis Assessment Notes Treatment Notes Treatment Clinical Notes Sep, Hypertensive chronic kidney disease with stage 1 through stage 4 chronic kidney disease, or unspecified chronic kidney disease (ICD-10 - I12.9) [employer] Other 11-17-2022 Evaluation note* Encounter Date Diagnosis Assessment Notes Treatment Notes Treatment Clinical Notes Sep, Encounter for immunization (ICD- 10 - Z23) Patient presents today for COVID-19 vaccination booster. Patient pre-vaccination form answers reviewed. Patient denies current illness or allergic reaction to any component of a COVD-19 vaccine. Patient provided with copy of current EUA. [employer] Other 10-26-2022 Evaluation note* Encounter Date [...] her to take a low phosphorus diet. [employer] Other 10-04-2022 Evaluation note* Encounter Date [...] E11.40) Pateint continues on the above medications. [employer] Other 09-08-2022 Evaluation note* Encounter Date Diagnosis Assessment Notes Treatment Notes Treatment Clinical Notes Jul, Diabetic neuropathy (ICD-10 - E1 1.40) [employer] Other 08-17-2022 Evaluation note* Encounter Date Diagnosis Assessment Notes Treatment Notes Treatment Clinical Notes Jun, Hyperlipidemia (ICD-10 - E78.5) Jun,KD (chronic kidney disease) stage 3, GFR 30-59 ml/min (ICD-10 - N18.3) Jun,Essential hypertension (ICD-10 - I10) [employer] Other 08-03-2022 Evaluation note* Encounter Date Diagnosis Assessment Notes Treatment Notes Treatment Clinical Notes Jun, Type 2 diabetes wicho itus with diabetic neuropathy, unspecified (ICD-10 - E11.40) [employer] Other 06-01-2022 Evaluation note* Encounter Date Diagnosis Assessment Notes Treatment Notes Treatment Clinical Notes Apr, Obstructive apnea (ICD-10 - G47. 33) Apr,Insomnia (ICD-10 - G47.00) Apr,Neuropathy (ICD-10 - G62.9) [employer] Other 05-16-2022 Evaluation note* Encounter Date [...] Patient is to continue to follow with project inspector as scheduled. March,hortness of breath (ICD-10 - R06.02) Patient is to continue to follow with the project inspector as scheduled. March,arathyroid disease (ICD-10 - E21.5) Patient is to continue to follow with the specialist as scheduled. March,harcot foot due to diabetes mellitus (ICD-10 - E11.610) Patient is to continue to follow with as scheduled. [employer] Other 05-09-2022 Evaluation note* Encounter Date Diagnosis Assessment Notes Treatment Notes Treatment Clinical Notes March, Type 2 diabetes wicho itus with diabetic neuropathy, unspecified (ICD-10 - E11.40) March,Type 2 diabetes mellitus with hyperglycemia, without long-term current use of insulin (ICD-10 - E11.65) [employer] Other 03-24-2022 Evaluation note* Encounter Date [...] her to take a low phosphorus diet. [employer] Other 03-11-2022 Evaluation note* Encounter Date [...] her symptoms worsen. 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 I did provide a work note excuse today. Jan,hortness of breath (ICD-10 - R06.02) In house EKG ordered and reviewed. Cardiac consult recommended as above. Jan,iabetic neuropathy (ICD-10 - E11.40) Worsening bilateral neuropathy reported by the patient . she has been consulting with business analysis analyst who per patient has suggested it may [...] The patient encourged to follow up with ethnology professor as scheduled, discussion was had she would benefit from a pulmonary function test. [employer] Other 02-22-2022 Evaluation note* Encounter Date Diagnosis Assessment Notes Treatment Notes Treatment Clinical Notes Dec, Type 2 diabetes wicho itus with diabetic neuropathy, unspecified (ICD-10 - E11.40) [employer] Other 01-04-2022 Evaluation note* Encounter Date [...] deficiency (ICD-10 - E55.9) Blood work ordered. [employer] Other 02-01-2015 History general Narrative - Reported* Type Description Date Medical History DM2 Medical HistoryHTNMedical HistorySleep apneaMedical Historyhypercalcemia due to PHT s/p surgery in FMedical HistoryneuropathyMedical History12/2014 colonscopy refusedMedical History12/31/2015 MRI left kneeMedical History04/15/19 colonoscopy refused; cologuard orderedMedical Hhvewzb11/19/19 Colonoscopy-abnormal repeat in 4 years (pos cologuard)Medical Gbxatpv90/2019 Pap w/ Dr. SeymourerMedical History Skin ulcer of left foot, limited to breakdown of skinMedical HistorySepsis, unspecified organismMedical HistoryH/O parathyroidectomyMedical HistoryRIGHT FOOT FRACTURESurgical Historycervical fusion and low back mwjfej2680Mtlgpphj HistoryProcedure:;Disease:Mobqftlsp3110Oyboozje Historyprevious cervical xrryzp8655Lkoqnvok HistoryProcedure:;Disease:Adojswjtw1137Cwvujycz History c/pffeuvs0154Rpkgyzso HistoryProcedure:;Disease:Rivyfmwde5471Godtdcdi Bctazrywlhhbvrfpi7362Hswkxvxd HistoryProcedure:tubal ligationSurgical History Procedure:Low back fusionSurgical Historytubal epthbmay6053Mcsewqcd History2 parathyroids htjnusy06/2013Surgical HistoryProcedure:cervical fusionSurgical HistoryBilateral eyelid pgalanw78/2012Surgical HistoryProcedure:x2 thyroid glands kcmbhhk5805Otthurrh Historyleft knee arthoscopy02/2016Surgical History lithotripsy03/2015Surgical Historyleft knee arthroscopy02/2016Surgical History partial left knee replacement12/2016Surgical Historyincision and drainage necrotizing fasciiitis seroma/bullae left lateral ankle/midfoot12/27/17urgical Historypartial left knee gqizcxplzdn41/2017Surgical HistoryI&D, debridement necrotizing fasciitis left ankle12/27/2017Surgical HistoryLeft ankle I & D1-2018 Surgical HistoryGallbladder01/2018Surgical HistoryLap. cholecystectomy02/17/2018 Surgical Edwtmqzaohysjxotqa01/19/2019Surgical HistoryColonoscopy06/17/2019 Surgical Historylow back fnevsqi9607/25/2020Hospitalization Pwymgbmvsitwfgybao0775 Hospitalization Historynecrotizing fasciitis11/2017Hospitalization Historysee above [employer] Other 02-01-2015 History general Narrative - Reported* Type Description Date Medical History DM2 Medical HistoryHTNMedical HistorySleep apneaMedical Historyhypercalcemia due to PHT s/p surgery in [facility]Medical HistoryneuropathyMedical History12/2014 colonscopy refusedMedical History12/31/2015 MRI left kneeMedical History04/15/19 colonoscopy refused; cologuard orderedMedical Bkiuapd87/19/19 Colonoscopy-abnormal repeat in 4 years (pos cologuard)Medical Zuduvqo59/2019 Pap w/ Dr. SeymourerMedical History Skin ulcer of left foot, limited to breakdown of skinMedical HistorySepsis, unspecified organismMedical HistoryH/O parathyroidectomyMedical HistoryRIGHT FOOT FRACTURESurgical Historycervical fusion and low back momrkb9444Nfnirvmf HistoryProcedure:;Disease:Iluvlauqw0967Qdqtxswn Historyprevious cervical zgatwz6200Tjdlxhbi HistoryProcedure:;Disease:Ikfuzubij2183Euxmhpqe History c/qifymry7034Wrxcmbmw HistoryProcedure:;Disease:Guthcztxm9827Kanhnhdj Smuavoteabwudrfzg4207Rdhnznbl HistoryProcedure:tubal ligationSurgical History Procedure:Low back fusionSurgical Historytubal gvswwusy5894Hqjzumrq History2 parathyroids kutlwsj40/2013Surgical HistoryProcedure:cervical fusionSurgical HistoryBilateral eyelid zvupihd74/2012Surgical HistoryProcedure:x2 thyroid glands kgclger4501Vngoxvne Historyleft knee arthoscopy02/2016Surgical History lithotripsy03/2015Surgical Historyleft knee arthroscopy02/2016Surgical History partial left knee replacement12/2016Surgical Historyincision and drainage necrotizing fasciiitis seroma/bullae left lateral ankle/midfoot12/27/17urgical Historypartial left knee dqfiemnxddu18/2017Surgical HistoryI&D, debridement necrotizing fasciitis left ankle12/27/2017Surgical HistoryLeft ankle I & D1-2018 Surgical HistoryGallbladder01/2018Surgical HistoryLap. cholecystectomy02/17/2018 Surgical Jbmspdzmgjlkmejrik43/19/2019Surgical HistoryColonoscopy06/17/2019 Surgical Historylow back oyucmgz2907/25/2020Surgical HistoryCardiac cath with stent placement mid LAD03/27/2022Hospitalization Arohywmqoltfmqqdqf7542 Hospitalization Historynecrotizing fasciitis11/2017Hospitalization Historysee above [employer] Other 02-01-2015 History general Narrative - Reported* Type Description Date Medical History DM2 Medical HistoryHTNMedical HistorySleep apneaMedical Historyhypercalcemia due to PHT s/p surgery in FMedical HistoryneuropathyMedical History12/2014 colonscopy refusedMedical History12/31/2015 MRI left kneeMedical History04/15/19 colonoscopy refused; cologuard orderedMedical Yrbswug16/19/19 Colonoscopy-abnormal repeat in 4 years (pos cologuard)Medical Mfmsgum39/2019 Pap w/ Dr. SeymourerMedical History Skin ulcer of left foot, limited to breakdown of skinMedical HistorySepsis, unspecified organismMedical HistoryH/O parathyroidectomyMedical HistoryRIGHT FOOT FRACTUREMedical HistoryLEFT FOOT LUCAS SEEING PODIATRISTSurgical History cervical fusion and low back qrbdmi9381Yrmewxem History Procedure:;Disease:Bprguamja7025Fbdqemmz Historyprevious cervical fusion 1997Surgical HistoryProcedure:;Disease:Jdgcuvmva4616Ogrwqqtj History c/htncntv2527Ocfemqet HistoryProcedure:;Disease:Dynkwfwnn8172Srounfjb Hfifxaevzxufeuzoq9043Uwexxzzz HistoryProcedure:tubal ligationSurgical History Procedure:Low back fusionSurgical Historytubal cpyanoaf9474Ljmarbzr History2 parathyroids acxhpwq77/2013Surgical HistoryProcedure:cervical fusionSurgical HistoryBilateral eyelid gioimsd52/2012Surgical HistoryProcedure:x2 thyroid glands jomfdpw2645Gkidziru Historyleft knee arthoscopy02/2016Surgical History lithotripsy03/2015Surgical Historyleft knee arthroscopy02/2016Surgical History partial left knee replacement12/2016Surgical Historyincision and drainage necrotizing fasciiitis seroma/bullae left lateral ankle/midfoot12/27/urgical Historypartial left knee uieuiuhqgqz95/2017Surgical HistoryI&D, debridement necrotizing fasciitis left ankle12/27/2017Surgical HistoryLeft ankle I & D1-2018 Surgical HistoryGallbladder01/2018Surgical HistoryLap. cholecystectomy02/17/2018 Surgical Uobpqjhbxvqrobjwyo36/19/2019Surgical HistoryColonoscopy06/17/2019 Surgical Historylow back nsbhqab1607/25/2020Surgical HistoryCardiac cath with stent placement mid LAD03/27/2022Hospitalization Oghnvzxkcmacgawtrr8322 Hospitalization Historynecrotizing fasciitis11/2017Hospitalization Historysee above [employer] Other 02-01-2015 History general Narrative - Reported* Type Description Date Medical History DM2 Medical HistoryHTNMedical HistorySleep apneaMedical Historyhypercalcemia due to PHT s/[facility] HistoryneuropathyMedical History12/2014 colonscopy refusedMedical History12/31/2015 MRI left kneeMedical History04/15/19 colonoscopy refused; cologuard orderedMedical Erjbzgi26/19/19 Colonoscopy-abnormal repeat in 4 years (pos cologuard)Medical Gqvfseq92/2019 Pap w/ Dr. SeymourerMedical History Skin ulcer of left foot, limited to breakdown of skinMedical HistorySepsis, unspecified organismMedical HistoryH/O parathyroidectomyMedical HistoryRIGHT FOOT FRACTUREMedical HistoryLEFT FOOT LUCAS SEEING PODIATRISTSurgical History cervical fusion and low back spiohf8567Lspynckj History Procedure:;Disease:Glsrvcvja1020Etnarohj Historyprevious cervical fusion 1997Surgical HistoryProcedure:;Disease:Ibeccmfdf6929Zajibkzx History c/wmqxphm2041Ajdmvlwe HistoryProcedure:;Disease:Krmowsdjt7188Qbnrympf Nwdxkuwkuhldvcocy2448Inurihdg HistoryProcedure:tubal ligationSurgical History Procedure:Low back fusionSurgical Historytubal pvvrutdk1013Hxssukdq History2 parathyroids lrfregt84/2013Surgical HistoryProcedure:cervical fusionSurgical HistoryBilateral eyelid gjmcsze79/2012Surgical HistoryProcedure:x2 thyroid glands kbgexgf1567Cqootrvg Historyleft knee arthoscopy02/2016Surgical History lithotripsy03/2015Surgical Historyleft knee arthroscopy02/2016Surgical History partial left knee replacement12/2016Surgical Historyincision and drainage necrotizing fasciiitis seroma/bullae left lateral ankle/midfoot12/27/urgical Historypartial left knee unhstrjmivu77/2017Surgical HistoryI&D, debridement necrotizing fasciitis left ankle12/27/2017Surgical HistoryLeft ankle I & D1-2017 Surgical HistoryGallbladder01/2018Surgical HistoryLap. cholecystectomy02/17/2018 Surgical Puecpulglwlpqoxbtk89/19/2019Surgical HistoryColonoscopy06/17/2019 Surgical Historylow back xisfxwn0007/25/2020Surgical HistoryCardiac cath with stent placement mid LAD03/27/2022urgical Historyreconstruction lt foot surgery 12/29/2022Hospitalization Egfnmdyyelluzyrqof4843Pmejqiolhffhnvg History necrotizing fasciitis11/2017Hospitalization Historysee above [employer] Other 02-01-2015 History general Narrative - Reported* Type Description Date Medical History DM2 Medical HistoryHTNMedical HistorySleep apneaMedical Historyhypercalcemia due to PHT s/p [facility] HistoryneuropathyMedical History12/2014 colonscopy refusedMedical History12/31/2015 MRI left kneeMedical History04/15/19 colonoscopy refused; cologuard orderedMedical Qvepszc49/19/19 Colonoscopy-abnormal repeat in 4 years (pos cologuard)Medical Hbswwft05/2019 Pap w/ Dr. SeymourerMedical History Skin ulcer of left foot, limited to breakdown of skinMedical HistorySepsis, unspecified organismMedical HistoryH/O parathyroidectomyMedical HistoryRIGHT FOOT FRACTUREMedical HistoryLEFT FOOT LUCAS SEEING PODIATRISTSurgical History cervical fusion and low back qztrid0793Espisssw History Procedure:;Disease:Idnimaupt2373Gpqdjzvc Historyprevious cervical fusion 1997Surgical HistoryProcedure:;Disease:Zcxchdsml4975Gkunrajg History c/cayhdpy7710Ymcrpgvr HistoryProcedure:;Disease:Ewrlygscd1112Lsjpqjgb Kwdhheizlajsijgep2030Zxjyhkae HistoryProcedure:tubal ligationSurgical History Procedure:Low back fusionSurgical Historytubal puaabwpc1182Cchphixz History2 parathyroids /2013Surgical HistoryProcedure:cervical fusionSurgical HistoryBilateral eyelid lxomvah66/2012Surgical HistoryProcedure:x2 thyroid glands sogwlgv5217Twsyhvgc Historyleft knee arthoscopy02/2016Surgical History lithotripsy03/2015Surgical Historyleft knee arthroscopy02/2016Surgical History partial left knee replacement12/2016Surgical Historyincision and drainage necrotizing fasciiitis seroma/bullae left lateral ankle/midfoot12/27/17urgical Historypartial left knee gtstouareyw30/2017Surgical HistoryI&D, debridement necrotizing fasciitis left ankle12/27/2017Surgical HistoryLeft ankle I & D1-2018 Surgical HistoryGallbladder01/2018Surgical HistoryLap. cholecystectomy02/17/2018 Surgical Xnkdmkrincwqhhytej25/19/2019Surgical HistoryColonoscopy06/17/2019 Surgical Historylow back surgery-agtspr7507/25/2020Surgical HistoryCardiac cath with stent placement mid LAD03/27/2022urgical Historyreconstruction lt foot hinpurl7812/29/2022Hospitalization Jrevcqnilifqulmdfi2324Krqvuwrlxxocyhw History necrotizing fasciitis11/2017Hospitalization Historysee above [employer] Other 02-01-2015 History general Narrative - Reported* Type Description Date Medical History DM2 Medical HistoryHTNMedical HistorySleep apneaMedical Historyhypercalcemia due to PHT s/[facility] HistoryneuropathyMedical History12/2014 colonscopy refusedMedical History12/31/2015 MRI left kneeMedical History04/15/19 colonoscopy refused; cologuard orderedMedical Orbsokb56/19/19 Colonoscopy-abnormal repeat in 4 years (pos cologuard)Medical Fbmdugh67/2019 Pap w/ Dr. SeymourerMedical History Skin ulcer of left foot, limited to breakdown of skinMedical HistorySepsis, unspecified organismMedical HistoryH/O parathyroidectomyMedical HistoryRIGHT FOOT FRACTUREMedical HistoryLEFT FOOT LUCAS SEEING PODIATRISTSurgical History cervical fusion and low back ddbrql1686Mghepwum History Procedure:;Disease:Xgbooymyc9486Xhtwankr Historyprevious cervical fusion 1997Surgical HistoryProcedure:;Disease:Optnpmvqq6544Fmtgviab History c/rjelfbf2859Jcbsyfqp HistoryProcedure:;Disease:Grbhrropq8583Mkygqook Oishlphyqpmmjeyxl4481Staonfxx HistoryProcedure:tubal ligationSurgical History Procedure:Low back fusionSurgical Historytubal ccsxkzvh1257Izlycmax History2 parathyroids bklipxg45/2013Surgical HistoryProcedure:cervical fusionSurgical HistoryBilateral eyelid /2012Surgical HistoryProcedure:x2 thyroid glands mgrcltf8394Tbcavqgf Historyleft knee arthoscopy02/2016Surgical History lithotripsy03/2015Surgical Historyleft knee arthroscopy02/2016Surgical History partial left knee replacement12/2016Surgical Historyincision and drainage necrotizing fasciiitis seroma/bullae left lateral ankle/midfoot12/27/17urgical Historypartial left knee gytznxlfusy54/2017Surgical HistoryI&D, debridement necrotizing fasciitis left ankle12/27/2017Surgical HistoryLeft ankle I & D1-2017 Surgical HistoryGallbladder01/2018Surgical HistoryLap. cholecystectomy02/17/2018 Surgical Mgkxhbpzxxqssexjyx24/19/2019Surgical HistoryColonoscopy06/17/2019 Surgical Historylow back surgery-uqhnbf8907/25/2020Surgical HistoryCardiac cath with stent placement mid LAD03/27/2022urgical Historyreconstruction lt foot surgery Dr. Castro12/29/2022Hospitalization Bolskvgqssvrbjcqsm6840 Hospitalization Historynecrotizing fasciitis11/2017Hospitalization Historysee above [employer] Other 02-01-2015 History general Narrative - Reported* Type Description Date Medical History DM2 Medical HistoryHTNMedical HistorySleep apneaMedical Historyhypercalcemia due to PHT s/p [facility] HistoryneuropathyMedical History12/2014 colonscopy refusedMedical History12/31/2015 MRI left kneeMedical History04/15/19 colonoscopy refused; cologuard orderedMedical Wcjwfum94/19/19 Colonoscopy-abnormal repeat in 4 years (pos cologuard)Medical Asyqvpu18/2019 Pap w/ Dr. SeymourerMedical History Skin ulcer of left foot, limited to breakdown of skinMedical HistorySepsis, unspecified organismMedical HistoryH/O parathyroidectomyMedical HistoryRIGHT FOOT FRACTUREMedical HistoryLEFT FOOT LUCAS SEEING PODIATRISTSurgical History cervical fusion and low back hhserc2309Buckosax History Procedure:;Disease:Nmldvxltn1626Weihzqru Historyprevious cervical fusion 1997Surgical HistoryProcedure:;Disease:Buzopfqqp0944Jpzdtpbl History c/pgtybqt2699Brubwkwo HistoryProcedure:;Disease:Pgqpyolbt1660Extlpqoj Ahxygagrvtksnnnpt9474Mtpdsctz HistoryProcedure:tubal ligationSurgical History Procedure:Low back fusionSurgical Historytubal jbzpcrjz4164Uzzubbth History2 parathyroids utcjaab93/2013Surgical HistoryProcedure:cervical fusionSurgical HistoryBilateral eyelid /2012Surgical HistoryProcedure:x2 thyroid glands psrlaas7464Hinlcshj Historyleft knee arthoscopy02/2016Surgical History lithotripsy03/2015Surgical Historyleft knee arthroscopy02/2016Surgical History partial left knee replacement12/2016Surgical Historyincision and drainage necrotizing fasciiitis seroma/bullae left lateral ankle/midfoot12/27/17urgical Historypartial left knee azycxwcyper87/2017Surgical HistoryI&D, debridement necrotizing fasciitis left ankle12/27/2017Surgical HistoryLeft ankle I & D1-2018 Surgical HistoryGallbladder01/2018Surgical HistoryLap. cholecystectomy02/17/2018 Surgical Hxavblkjqznkrazkro00/19/2019Surgical HistoryColonoscopy06/17/2019 Surgical Historylow back surgery-zgxvgf7507/25/2020Surgical HistoryCardiac cath with stent placement mid LAD03/27/2022urgical Historyreconstruction lt foot surgery Dr. Castro12/29/2022Surgical HistorySTEROID INJECTIONS IN LOW BACK AND RIGHT HIP08/2023Hospitalization Dippizmgwcxywhmkgr5594Naxuwelgsnkdcdi Historynecrotizing fasciitis11/2017Hospitalization Historysee above [facility] [employer] Other Evaluation [employer] Other Evaluation noteNo InformationN[employer] Other Evaluation noteN[employer] Other evaluation noteNo assessment information available [facility] Work Phone: Evaluation note* Diagnosis Coronary artery disease, unspecified vessel or lesion type, unspecified whether angina present, unspecified whether wales or transplanted heart- Primary Essential hypertension Unspecified essential hypertension 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 Hyperlipidemia, unspecified hyperlipidemia type Obstructive sleep apnea syndrome Obstructive sleep apnea (adult) (pediatric) Class 2 obesity with body mass index (BMI) of 37.0 to 37.9 in adult, unspecified obesity type, unspecified whether serious comorbidity present Insulin-requiring or dependent type II diabetes mellitus ([facility]) Type II or unspecified type diabetes mellitus without mention of complication, not stated as uncontrolled documented in this encounter [facility] Work Phone: Evaluation note* Diagnosis Onset Date Resolution Status Chronic pain acuteInflammation of sacroiliac jointacuteOsteoarthritis of spine with radiculopathy, lumbar regionacuteTrochanteric bursitisacute [facility] Work Phone: Evaluation note* Diagnosis Onset Date Resolution Status Chronic pain acuteInflammation of sacroiliac jointacuteOsteoarthritis of spine with radiculopathy, lumbar regionacuteTrochanteric bursitisacuteCKD (chronic kidney disease) stage 3, GFR 30-59 ml/minacuteHyperlipidemiaacuteHyperparathyroidism cnnkqAHN-BHHX-[id number]knShhmhhnozrhndypbajuKrlianflbxartny acuteType 2 diabetes mellitus with diabetic chronic kidney diseaseacute [facility] Work Phone: Evaluation note* Diagnosis Onset Date Resolution Status Chronic pain acuteInflammation of sacroiliac jointacuteOsteoarthritis of spine with radiculopathy, lumbar regionacuteTrochanteric bursitisacuteCKD (chronic kidney disease) stage 3, GFR 30-59 ml/minacuteHyperlipidemiaacuteHyperparathyroidism sajavJFM-LYTB-[id number]zzwxezovgaiwnsoqsvOipnqsojypeumhz acuteType 2 diabetes mellitus with diabetic chronic kidney diseaseacuteChronic painacuteLumbar muscle painacuteOsteoarthritis of spine with radiculopathy, lumbar regionacute [facility] Work Phone: Evaluation note* Diagnosis Onset Date Resolution Status CKD (chronic kidney disease) stage 3, GF R 30-59 ml/min dewawPtnsndunfdqgelhjqhgKsomrgcesqgnsblsscucgowzLOY-YDIA-[id number] HyperuricemiaacuteHypomagnesemiaacuteNephrolithiasisacuteType 2 diabetes mellitus with diabetic chronic kidney diseaseacuteChronic painacuteLumbar muscle painacuteOsteoarthritis of spine with radiculopathy, lumbar regionacuteChronic painacuteOsteoarthritis of spine with radiculopathy, lumbar regionacute Sacroiliitis, not elsewhere classifiedacute [facility] Work Phone: evaluation note* Diagnosis Onset Date Resolution Status Chronic pain acuteLumbar muscle painacuteOsteoarthritis of spine with radiculopathy, lumbar regionacuteChronic painacuteOsteoarthritis of spine with radiculopathy, lumbar regionacuteSacroiliitis, not elsewhere classifiedacute [facility] Work Phone: evaluation note* Diagnosis Onset Date Resolution Status Chronic pain acuteLumbar muscle painacuteOsteoarthritis of spine with radiculopathy, lumbar regionacuteChronic painacuteOsteoarthritis of spine with radiculopathy, lumbar regionacuteSacroiliitis, not elsewhere classifiedacuteObstructive apneaacute [facility] Work Phone: evaluation note* Diagnosis Onset Date Resolution Status Chronic pain acuteLumbar muscle painacuteOsteoarthritis of spine with radiculopathy, lumbar regionacuteChronic painacuteOsteoarthritis of spine with radiculopathy, lumbar regionacuteSacroiliitis, not elsewhere classifiedacuteObstructive apneaacute Chronic painacuteOsteoarthritis of spine with radiculopathy, lumbar regionacute Sacroiliitis, not elsewhere classifiedacute [facility] Work Phone: Evaluation note* Diagnosis Onset Date Resolution Status Chronic pain acuteOsteoarthritis of spine with radiculopathy, lumbar regionacuteSacroiliitis, not elsewhere classifiedacute [facility] Work Phone: evaluation note* Diagnosis Type 2 diabetes mellitus with peripheral neuropathy ([facility]/H[facility])- Primary 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0 to 39.9 in adult ([facility]) Long-term insulin use ([facility]) Spondylolisthesis at L3-L4 level Class 2 severe obesity due to excess calories with serious comorbidity and body mass index (BMI) of38.0 to 38.9 in adult ([facility])- Primary Type 2 diabetes mellitus with both eyes affected by mild nonproliferative retinopathy without macular edema, with long-term current use of insulin ([facility]) Type 2 diabetes mellitus with peripheral neuropathy ([facility]) 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 ([facility]) Long-term insulin use ([facility]) Type 2 diabetes mellitus with peripheral neuropathy ([facility])- Primary 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 ([facility]) Type 2 diabetes mellitus with both eyes affected by mild nonproliferative retinopathy without macular edema, with long-term current use of insulin ([facility]) Long-term insulin use ([facility]) Class 2 severe obesity due to excess calories with serious comorbidity and body mass index (BMI) of39.0 to 39.9 in adult ([facility]) documented in this encounter [facility] HealthcareEvaluation note* Diagnosis Coronary artery disease, unspecified vessel or lesion type, unspecified whether angina present, unspecified whether wales or transplanted heart Elevated coronary artery calcium [...] serious comorbidity present documented in this encounter [facility] Work Phone: Evaluation note* Author [place] [facility] 2024 10:30amThe above note written by ITZ Teresa acting as human recorder, note dictated by Dr. Charan Casey. 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) Class 2 severe obesity due to excess calories with serious comorbidity and body mass index (BMI) of39.0 to 39.9 in adult ([facility]) Long-term insulin use (HCC) Spondylolisthesis at L3-L4 level Class 2 severe obesity due to excess calories with serious comorbidity and body mass index (BMI) of38.0 to 38.9 in adult ([facility])- Primary Type 2 diabetes mellitus with both [...] index (BMI) of39.0 to 39.9 in adult ([facility]) 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 [...] index (BMI) of37.0 to 37.9 in adult ([facility]) 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 [...] index (BMI) of35.0 to 35.9 in adult ([facility]) documented in this encounter [facility] HealthcareEvaluation note* Diagnosis Type 2 diabetes mellitus with peripheral neuropathy (HCC)- Primary 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) Long-term insulin use (HCC) Class 2 severe obesity due to excess calories with serious comorbidity and body mass index (BMI) of39.0 to 39.9 in adult ([facility]) Type 2 diabetes mellitus with peripheral neuropathy (HCC)- Primary 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) Class 2 severe obesity due to excess calories with serious comorbidity and body mass index (BMI) of39.0 to 39.9 in adult ([facility]) Long-term insulin use ([facility]) Spondylolisthesis at L3-L4 level Class 2 severe obesity due to excess calories with serious comorbidity and body mass index (BMI) of38.0 to 38.9 in adult ([facility])- Primary Type 2 diabetes mellitus with both [...] index (BMI) of39.0 to 39.9 in adult ([facility]) 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)- Primary Type 2 diabetes mellitus with peripheral neuropathy (HCC) Type 2 diabetes mellitus with both eyes affected by mild nonproliferative retinopathy without macular edema, with long-term current use of insulin (HCC) Long-term insulin use ([facility]) Class 2 severe obesity due to excess calories with serious comorbidity and body mass index (BMI) of37.0 to 37.9 in adult ([facility]) 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)- Primary Type 2 diabetes mellitus with peripheral neuropathy ([facility]) Type 2 diabetes mellitus with both eyes affected by mild nonproliferative retinopathy without macular edema, with long-term current use of insulin (HCC) Long-term insulin use ([facility]) Class 2 severe obesity due to excess calories with serious comorbidity and body mass index (BMI) of35.0 to 35.9 in adult ([facility]) Type 2 diabetes mellitus with peripheral neuropathy ([facility])- Primary 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 ([facility]) Type 2 diabetes mellitus with both eyes affected by mild nonproliferative retinopathy without macular edema, with long-term current use of insulin (HCC) Long-term insulin use ([facility]) Class 2 severe obesity due to excess calories with serious comorbidity and body mass index (BMI) of35.0 to 35.9 in adult ([facility]) documented in this encounter [facility] Narrative - ReportedIridian [employer] Other History general Narrative - ReportedIridian Technologies Other Hospital Discharge instructions Additional Instructions [...] years. -Follow up with PCP. -Office number [phone]. [facility] Work Phone: Regyss for referral (narrative)* Consultation (Routine) - AuthorizedSpecialtyDiagnoses / ProceduresReferred By Contact Referred To ContactCardiology Diagnoses Coronary artery disease, unspecified vessel or lesion type, unspecified whether angina present, unspecified whether wales or transplanted heart Procedures Follow Up In Cardiology Rosalinda Torres MD [address] [place] [address] Rosalinda Torres MD [address] [place] [address], [address] [address] Referral IDStatusReasonStart DateExpiration DateVisits RequestedVisits [id number]/25/20243/ [facility] Work Phone: Refimk for referral (narrative)* Consultation (Routine) - AuthorizedSpecialtyDiagnoses / ProceduresReferred By Contact Referred To ContactCardiology Diagnoses Coronary artery disease, unspecified vessel or lesion type, unspecified whether angina present, unspecified whether wales or transplanted heart Procedures Follow Up In Cardiology Rosalinda Torres MD [address] [facility] [address] [place] [address] Rosalinda Torres MD [address] [facility] [address] [place] [address] Referral IDStatusReasonStart DateExpiration DateVisits RequestedVisits [id number]/26/20249/ T [facility] Work Phone: Recsmv for referral (narrative)No reason for referral information availablePromedica Bay Park Hospital Work Phone: Summary Purpose Family History [...] the patient is agreeable to go on ecehrmfiudki77 mg daily along with Zetia 10 mg [...] any trouble since her angioplasty. She has Hhenjng-Zwxfc-Lhyya disease and had recent surgery on the [...] has been compliant with it. * 7 Idpcili-Oddix-Winty joint in the ankles status post recent surgery on the left foot with plan to repair the right foot down the road Reason for Referral Reason Patient is need ing to having screening colonoscopy. Please schedule with [facility] Gastro. Patient DOES NOT want to see Dr. Bryant. Please call patient to schedule Diagnosis 1 Screening for colon cancer (Z12.11) Referral Organization [facility] Family Medicin e [place] Referring Provider First Name Charan Referring Provider Last Name Jacinto Referring Provider Specialty Family Prac pop Referred Organization [facility] Gastroenterolo gy Referred Provider Yasmeen Treadwell Referred Address [address] [facility] [address] ,[place], [place],[address] Referred Provider Specialty Gastroentero logy Referral Priority Routine General Notes Fore, Renée M 023 10:30:05 AM >Received today and sent P2P Reason stat consult and lou at Diagnosis 1 Chest pressure (R07. 89) Diagnosis 2 Shortness of breath (R06.02) Diagnosis 3 Type 2 diabetes wicho itus with diabetic neuropathy, unspecified (E11.40) Diagnosis 4 Obstructive apnea (G 47.33) Referral Organization [facility] Family Medicin [facility] [place] Referring Provider First Name Charan Referring Provider Last Name Jacinto Referring Provider Specialty Family Prac pop Referred Organization [facility] enter Referred Address [address] [facility] [address] ,[place], [place],[address] Referred Provider Specialty Cardiology Referral Priority Stat [...] stage 3, GFR 30-59 ml/min Hyperlipidemia Hyperparathyroidism [id number] Hyperuricemia Hypomagnesemia Nephrolithiasis Type 2 diabetes mellitus [...] stage 3, GFR 30-59 ml/min Hyperlipidemia Hyperparathyroidism [id number] Hyperuricemia Hypomagnesemia Nephrolithiasis Type 2 diabetes mellitus [...] stage 3, GFR 30-59 ml/min Hyperlipidemia Hyperparathyroidism [id number] Hyperuricemia Hypomagnesemia Nephrolithiasis Type 2 diabetes mellitus [...] stage 3, GFR 30-59 ml/min Hyperlipidemia Hyperparathyroidism [id number] Hyperuricemia Hypomagnesemia Nephrolithiasis Type 2 diabetes mellitus [...] :46am acute illness/ CXR ordered/ per Dr. aCsey December 09, 2024 10:00am F/U 1st LAURA [...] Shoulder January 26, 2025 9:45am MRI RESULTS [facility] January 26, 2025 12:50pm Reason for [...] M75.101 January 23, 2025 12:43pm MRI RESULTS [facility] January 26, 2025 12:50pm Rotator cuff [...] M75.101 January 23, 2025 12:43pm MRI RESULTS [facility] January 26, 2025 12:50pm Rotator cuff [...] M75.101 January 23, 2025 12:43pm MRI RESULTS [facility] January 26, 2025 12:50pm Rotator cuff [...] M75.101 January 23, 2025 12:43pm MRI RESULTS [facility] January 26, 2025 12:50pm Rotator cuff [...] classified [facility] 2024 9:03am Trochanteric bursitis June [...] 8:03a m Sacroiliitis, not elsewhere classified [facility] 2024 8:03am Trochanteric bursitis May 31, 2025 8:0 3am Chronic pain June 21, 2025 9:03 am Sacroiliitis, not elsewhere classified [facility] 2024 9:03am Trochanteric bursitis June 21, 2025 9: 03am Diabetic foot ulcer associat ed with type 2 diabetes mellitus, with fat laye July 12, 2025 7:36am MRSA bacteremia July 12, 2025 7: 36am Oral thrush July 12, 2025 7: 36am Additional Source Comments INFORMATION SOURCE (unrecogn ized section and content) DATE CREATED AUTHOR 07/28/2018 [facility] DATE CREATED AUTHOR AUTHOR'S ORGANIZ ATION 03/18/2022 [facility] DATE CREATED AUTHOR AUTHOR'S ORGANIZ ATION 10/17/2022 [facility] DATE CREATED AUTHOR AUTHOR'S ORGANIZ ATION 04/13/2023 [facility] DATE CREATED AUTHOR AUTHOR'S ORGANIZ ATION 05/08/2023 [facility] DATE CREATED AUTHOR AUTHOR'S ORGANIZ ATION 05/08/2023 [facility] DATE CREATED AUTHOR AUTHOR'S ORGANIZ ATION 02/23/2024 [facility] DATE CREATED AUTHOR AUTHOR'S ORGANIZ ATION 06/09/2025 [facility] DATE CREATED AUTHOR AUTHOR'S ORGANIZ ATION 07/29/2025 [facility] EPIC REASON FOR VISIT (unrecogniz ed section and content) ReasonCommentsFollow-kj7nOcgvixpswCkbgrfqlx / ProceduresReferred By Contact Referred To ContactCardiology Diagnoses Coronary artery disease, unspecified vessel or lesion type, unspecified whether angina present, unspecified whether wales or transplanted heart Procedures Follow Up In Cardiology Rosalinda Torres MD [address] [facility] [address], [address] [address] Rosalinda Torres MD [address] [facility] [address], [address] [address] Referral IDStatusReasonStart DateExpiration DateVisits RequestedVisits [id number] Review/[id number] CommentsFollow-up[address] ChengionCOLONOSCOPY REPORTUpdate Kiosk DemographicsMED REFILL, INCREASED LT HIPPAINF/U BILAT SI JOINT AND R GREATER TROCH BURSA INJ/JMBILAT SI JOINT AND RIGHT TROCH BURSA INJ/JMMAIL PPWrefill- bpk to send rxF/U FROM APPT WITH DR Mosesased pain in lower backemployee DSMEpain, back4 month Follow uppap issuesSHINGRIX #2 // [facility] TRADITIONAL PLAN THROUGH SPOUSESHINGRIX #1 // [facility] TRADITIONAL PLAN THROUGH SPOUSEMODERNA BIVALENT BOOSTERAFLURIA FLU VACCINECKD and HTNreview labSLEEP LABhosp recheck/ discuss disability processDocumentationFYI/ updateDisability paperworkEmployee Program F/UCKDPt no show Employee Diabetes Ed program 4/8Clinicalneuropathy, chest pressure ,SOBfyirefillsneeds fmla, FACETIME [phone] Care Teams (unrecognized sec tion and content) [...] Inactive Member Role Status Dates Charan aCsey , DO Primary Care Provider Active Mathieu [...] MemberRelationshipSpecialtyStart DateEnd Date Charan Casey DO [address] [facility] [address] [place] [address] PCP - GeneralFamily Medicine02/22/24 Rosalinda Torres MD [address] [facility] [address], [address] [address] Consulting PhysicianCardiology02/22/24 Team Status: Inactive Member Role [...] LPN Care Manager Active Blas Ortiz , MDSpecialistActiveAlllcuia Munroe , DOSpecialistActiveAcosta Castro , DPM MSSpecialistActiveHassheather [...] 2024Team MemberRelationshipSpecialtyStart DateEnd Date Charan Casey MD [address] [place] [phone] PCP - General05/20/23 Moni Becker MD [address] [facility] [address] [place] [address] PCP - [facility]/11/2411Team MemberRelationshipSpecialtyStart DateEnd Date Charan Casey DO PCP - GeneralBoston [facility] Medicine02/22/24 Rosalinda Torres MD [address] [place] [address] [address] [place] [address] Consulting PhysicianCardiology02/22/24 Team Status: Inactive Member Role [...] 2025Team MemberRelationshipSpecialtyStart DateEnd Date Charan Casey MD [address] [place] [phone] [facility]05/20/23 Team Status: Active Member Role Status [...] 2025Team MemberRelationshipSpecialtyStart DateEnd Date Charan Casey DO [address] [place] [phone] [facility]05/20/23 Team Status: Inactive Member Role Status [...] DateEnd Date Charan Casey DO [address] [place] [address] PCP - General05/20/23Team MemberRelationshipSpecialtyStart DateEnd Date Charan Casey DO [facility] [place] [address] PCP - General05/20/23 Goals (unrecognized section and [...] BE BASED ON THE PRIMARY CLINICAL RECORDS. [employer] provides no warranty or guarantee of the accuracy or completeness of information in this document.
== END 2025-10-04 09:39 | disposition home or self-care (01) ==
LOC: WC 09:38
PROVIDERS: PCP Family Medicine; Visit Provider Physician Assistant
DX: E11.621 Type 2 diabetes mellitus with foot ulcer (principal); L97.423 Non-pressure chronic ulcer of left heel and midfoot with necrosis of muscle
CPT/HCPCS: 29445

== ENCOUNTER 2025-10-11 09:01 | Outpatient (OUT) | payer MEDICARE, SELFPAY ==
--- OUTSIDE RECORDS SUMMARY | 2025-07-12 04:00 | XMS_ITS ---
Author Organization [facility] [place] Address [address] [place] [address] Care Team Providers Care Summer Sessions Director Name Role Phone Charan Delgadillo DO Primary Care Provider Torres Cid [facility] [phone] REASON FOR VISIT 1 year f/u Encounters Encounter Location Date Provider Diagnosis [facility] (PODIATRY) [address] [place] [address] [address] [place] [address] 07/12/2025 Torres Fernandez Plan Of Treatment No Information Progress Notes * JORDYNCorinanithaDOB:1960 (64 yo F)Acc No.[id number]:07/12/2025 UNLOCKED PROGRESS NOTE Follow Up Patient: Joy CHAVEZ :?Torres Fernandez DPM, MSDOB:1960???Age: 64 Y???Sex:FemaleDate:07/12/2025Phone:[phone]:[address], [place]-[id number]:Charan Delgadillo DO Subjective: * Chief Complaints: * 1 . 1 year f/u. * Medical History: Objective: * Vitals: Assessment: Plan: * Treatment: * * Electronic signature of Torres Fernandez DPM on 10/11/2025 at 09:05 AM ESTSign off status: PendingVisit Status:?OFF CANC (OFFICE CANCEL) * Provider: Dani Fernandez DPM, MS Date: 0 07/12/2025 Generated for Printing/Faxing/eTransmitting on:?10/11/2025 09:05 AM EST
--- OUTSIDE RECORDS SUMMARY | 2025-10-11 09:04 | XMS_ITS | Clinical Summary ---
Author Organization [facility] Address [address] [facility] [place] [address] Care Team Providers Care Relief Cook Name Role Phone Brysonbryn Charan Dani BASSETT Primary Care Provider [phone] Allergies Active AllergyReactionsCriticalityNoted DateCommentsErythromycinUnknown 05/15/2025Erythromycin BaseNausea Only05/19/2023LevofloxacinGI [...] MOUTH ONCE DAILY ON mondays, wednesdays, AND ofophjl0811/12/2022 Active pregabalin (Lyrica) 150 MG capsule Take 150 mg by mouth at bedtimeActive Continuous Blood Gluc Car Repairer Helper (Dexcom G7 Car Repairer Helper) device USE YHGTKSTF72/17/2023ctive Continuous Blood Gluc Sensor (Dexcom G7 Sensor) [...] macular edema, with long-term current use of fuyxelu9604/21/2024Type 2 diabetes mellitus with peripheral cfnavoteyc05/13/2023 Assessment & Plan (07/27/2025 9:29 AM EDT): [...] 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 ctcjtmejnhz60/13/2023 Assessment & Plan (02/11/2024 9:19 PM EDT): [...] Long-term insulin use10/12/2023Spondylolisthesis at L3-L4 level10/12/2023S/P laparoscopic zeiwelyeplddndw88/13/2023Other hammer toe(s) (acquired), left foot 10/12/2023lass 2 severe obesity with serious comorbidity and body mass index (BMI) of 35.0 to 35.9 in adult10/12/2023arpal tunnel syndrome of right wrist 01/27/2020Chronic foot ulcer04/13/2018 Encounters DateTypeDepartmentCare QmnvDbapchtvksh47/27/2025Abstract [facility] [address] [place] [address] Luisito Seymour, DPM 09/25/2025bstract [facility] [address] [place] [address] Luisito Seymour, DPM 08/15/2025Refill [facility] [address] [place] [address] Monica Tee LPN Type 2 diabetes mellitus with peripheral neuropathy (HCC)07/27/2025 8:15 AM EDT Office Visit [facility] [address] [facility] [address] Shaina Figueroa, DO Type 2 diabetes mellitus [...] to 35.9 in adult ([facility])07/27/2025amboo flowsheet [facility] [address] [facility] [address] Shaina Figueroa DO 07/27/20250684Hraxru65/27/1204Gswwya95/25/2025Refill [facility] [address] [facility] [address] [place] [address] Kimberley Finn LPN Type 2 diabetes mellitus with peripheral neuropathy (HCC)07/18/2025Telephone [facility] [address] [facility] [address] [place] [address] Nancy Henriquez MA Home Health Carefrom Last 3 Months Immunizations ImmunizationAdministration DatesNext DueInfluenza, High Dose Seasonal, Preservative Free10/16/2022Influenza, injectable, quadrivalent, preservative free08/30/2019Influenza, seasonal, dmkjykwyut68/01/2019,08/30/2018Influenza, seasonal, injectable, preservative free08/30/2018,12/02/2016Influenza, seasonal, intradermal, preservative free08/30/2021Moderna SARS-CoV-2 Booster Vaccination 09/25/2021Moderna SARS-CoV-2 Mwdjhhqpmbz14/28/2021neumococcal Conjugate PCV 13 12/02/2016Pneumococcal Polysaccharide PUFA5170/11/2016,10/15/2016Zoster, Iomqlmevcqf43/28/2023,10/28/2022 Family History Medical HistoryRelationNameCommentsDiabetesBrotherNo Known ProblemsDaughter Atrial fibrillationFatherCoronary artery diseaseFatherDementiaFatherHeart diseaseFatherHypertensionFatherParkinsonismFatherSleep apneaFatherAsthmaMother HypertensionMotherSleep apneaMotherDiabetesPaternal GrandfatherDiabetesPaternal GrandmotherDiabetesSiblingHypertensionSonRelationNameStatusCommentsBrotherAlive2 ChildAlive2 sons 1 daughterDaughterAliveFatherDeceasedMotherAlivePaternal GrandfatherDeceasedPaternal GrandmotherDeceasedSiblingAlive2 brothersSonAlive2 Social History Tobacco UseTypesPacks/DayYears UsedDateSmoking Tobacco: NeverSmokeless Tobacco: Never Tobacco Cessation:Counseling Given: Not Answered Alcohol UseStandard Drinks/WeekCommentsNever0 (1 standard drink = 0.6 oz pure alcohol)caffeine: 1-2 cups per day ejfwccE3689 Health LiteracyAnswerDate RecordedHow often do you need [...] relatives?Once a week07/26/2025How often do you attend orthodoxy or buddhist services?More than 4 times per year07/26/2025Do you belong to any clubs or organizations such as orthodoxy groups, unions, fraThreadbox or athletic groups, or school groups?No07/26/2025How often [...] at all 07/26/2025PHQ-2AnswerDate RecordedPatient Health Questionnaire-2 Score0 05/15/2025[facility] [place] [facility] Occup[facility] - Occupational Stress QuestionnaireAnswerDate RecordedDo you feel stress - tense, restless, nervous, or anxious, or unable to sleep at night because yourmind is troubled all the time - these days?To some habqto5302/08/2024Exercise Vital SignAnswerDate Recorded On average, how many days per week do you engage in moderate to strenuous exercise (like a brisk walk)?Patient shbwapwj27/11/2024On average, how many minutes do you engage in exercise at this level?Patient frnyffjq23/11/2024Hunger Vital SignAnswerDate RecordedWithin the past 12 months, [...] steady place to sleep or slept in p[place]hel[place] (including now)?No 02/08/2024Housing Stability Vital SignAnswerDate RecordedIn the last 12 months, was there a time when you were not able to pay the mortgage or rent on time?No 07/26/2025In the past 12 months, how many times have you moved where you were living?t any time in the past 12 months, were you homeless or living in a fdc (including now)?No07/26/2025CommentsUnknownSex and Gender InformationValueDate RecordedSex Assigned at WxrabKnxsds87/21/2023 8:32 AM EDT Legal ImmOiatag41/15/2023 7:19 PM EDTGender OmprucrzMsyhbf56/21/2023 8:32 AM EDT Sexual OrientationNot on file Last Filed Vital Signs Vital SignReadingTime TakenCommentsBlood Bvqljpjf344/6208 8:13 AM EDT Nvfws681207/27/2025 8:13 AM WYNCbxprpwmtxl23.4 ??C (97.5 ??F)07/27/2025 8:13 AM EDTRespiratory Rate--Oxygen Uxzyrpsnvs49%07/27/2025 8:13 AM EDTInhaled Oxygen Concentration--Agzmdr185 kg (222 lb 3.2 oz)05/15/2025 10:29 AM LMTCmvzsv340.6 cm (5' 6 )07/27/2025 8:13 AM EDTBody Mass Index35.8605/15/2025 10:29 AM EDT Plan of Treatment DateTypeDepartmentCare Team (Latest Contact Info)Szaqrewbsmf67/25/2025 10:30 AM ESTOffice Visit [facility] [address] [facility] [address] [place] [address] Shaina Figueroa, [address] [place] [address] Health MaintenanceDue DateLast DoneCommentsCT Elsztxvfmiat1960Colonoscopy 1960Colorectal Cancer Fiunfxvzd1960FIT-DNA1960FIT1960 FOBT1960 4517Iyavlhrhyhylt1960Pap Smear1981Cervical Cancer Jxgqbnbft61/03/1990HPV/Gzuveq6411/01/19909445Qbatyavza39/03/2000COVID-19 Vaccine ( season), 10/16/2022, 09/26/2021, Additional history existsInfluenza Vaccine (#1)/, 08/30/2021, 08/30/2019, Additional history existsPneumococcal Vaccine: Pediatrics (0 to 5 Years) and At- Risk Patients (6 to 64 Years)Aged Out12/02/2016, 11/30/2016, 10/15/2016No longer eligible based on patient's age to complete this topic Insurance * Guarantor: Joy Asher TypeRelation to PatientDate of BirthPhone Billing AddressPersonal/QtqobuNubl1960 [facility] [place] [address] Care Teams Team MemberRelationshipSpecialtyStart DateEnd Date Charan Delgadillo DO [address] [place] [address] PCP - General05/20/23
--- OUTSIDE RECORDS SUMMARY | 2025-10-11 09:04 | XMS_ITS | Encounter Summary ---
Author Organization [facility] Address [address] 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 Name Role Phone BrysonCharan clemente Dani BASSETT Primary Care Provider [phone] Rosalinda Cordova MD Unavailable [phone] Reason for Visit * ReasonCommentsMed Refill Encounter Details DateTypeDepartmentCare Team (Latest Contact Info)Aymlatnesxs41/10/2025Refill [facility] [address] [address] Rosalinda Cordova MD [address] [facility] [address] [place] [address] Atherosclerotic heart disease of circle coronary artery without angina pectoris; Chest pain, unspecified Social History Tobacco UseTypesPacks/DayYears UsedDateSmoking Tobacco: NeverSmokeless Tobacco: NeverAlcohol UseStandard Drinks/WeekCommentsNever0 (1 standard drink = 0.6 oz pure alcohol)CommentsUnknownSex and Gender InformationValueDate Recorded Sex Assigned at BirthNot on fileLegal IiaCvesow87/26/2022 10:20 AM ESTGender IdentityNot on fileSexual OrientationNot on filedocumented as of this encounter Plan of Treatment DateTypeDepartmentCare Team (Latest Contact Info)Pridsdcpggt02/05/2025 2:30 PM ESTOffice Visit [facility] [address] [facility] [address] [place] [address] Rosalinda Cordova MD [address] [facility] [address] [place] [address] documented as of this encounter Visit Diagnoses Diagnosis Atherosclerotic heart disease of circle coronary artery without angina pectoris Chest pain, unspecified documented in this encounter Additional Health Concerns AssessmentNoted TimeA fall risk assessment has been completed for the patient 02/22/2024 2:26 PM EDTdocumented as of this encounter Care Teams Team MemberRelationshipSpecialtyStart DateEnd Date Charan Delgadillo DO PCP - GeneralFamily Medicine02/22/24 Rosalinda Cordova MD [address] [facility] [address] [place] [address] Consulting PhysicianCardiology02/22/24documented as of this encounter
--- OUTSIDE RECORDS SUMMARY | 2025-10-11 09:04 | XMS_ITS | Clinical Summary ---
Author Organization [facility] Address [address] 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 Name Role Phone Charan Delgadillo DO Primary Care Provider [phone] Rosalinda Cordova MD Unavailable [phone] Allergies Active AllergyReactionsCriticalityNoted DateCommentsErythromycin Base Nausea/cyvpzzai36/05/2024LevofloxacinNausea/mkhipqkvAher21/25/2024 Head ache Medications MedicationSigDispense QuantityRefillsLast FilledStart DateEnd DateStatus allopurinol (Zyloprim) 100 mg tablet Take 1 tablet (100 mg) by mouth once daily.02/07/2022ctive ascorbic acid (Vitamin C) 1,000 mg tablet Take 1 tablet (1,000 mg) by mouth once daily.Active aspirin 81 mg EC tablet Take 1 tablet (81 mg) by mouth once daily.Active ergocalciferol (Vitamin D-2) 1.25 MG (59404 UT) capsule Take 1 capsule (50,000 Units) [...] skin. Take as directed per insulin instructions.Active pregabalin (Lyrica) 150 mg capsule Take 1 [...] 10 mg tablet Indications:Atherosclerotic heart disease of [place] coronary artery without angina pectorisTake 1 tablet (10 mg) by mouth 3 (three) times a week. 36 tablet 12:07 PM ESTctive nitroglycerin (Nitrostat) 0.4 mg SL tablet Indications:Chest pain, unspecifiedPlace 1 tablet (0.4 mg) under the tongue every 5 minutes if needed for chest pain. 100 tablet 12:07 PM EST5Active nitroglycerin (Nitrostat) 0.4 mg SL tablet Indications:Chest pain, unspecifiedDISSOLVE 1 TABLET UNDER THE TONGUE EVERY 5 MINUTES NEEDED FOR CHEST PAIN. DO NOT EXCEED A TOTAL OF 3 DOSES IN 15 MINUTES. GO TO THE ER IF PERSISITS. 90 tablet Discontinued(Reorder) rosuvastatin (Crestor) 10 mg tablet Indications:Atherosclerotic heart disease of [place] coronary artery without angina pectorisTake 1 tablet (10 mg) by mouth 3 (three) times a week. 36 tablet 12:43 PM EDT1Discontinued Active Problems ProblemNoted DateDiagnosed DateClass 2 obesity with body mass index (BMI) of 37.0 to 37.9 in adult02/22/2024AD (coronary artery disease)12/04/2023Elevated coronary artery calcium score12/04/2023iabetes /05/2024Essential cqnxhcvprifp86/05/6696Dxulisuklcgpxt30/05/2024Obstructive sleep apnea syndrome 12/04/2023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12/04/2023 Encounters DateTypeDepartmentCare OwkjLnhutqnhmyq30/10/2025Refill [address] [phone] Rosalinda Cordova MD Atherosclerotic heart disease of [place] coronary artery without angina pectoris; Chest pain, unspecifiedfrom Last 3 Months Immunizations ImmunizationAdministration DatesNext DueInfluenza, seasonal, injectable 10/16/2022Moderna SARS-CoV-2 Ybohettotsu22/17/2022neumococcal conjugate vaccine, 13-valent (PREVNAR 13)12/02/2016Pneumococcal polysaccharide vaccine, 23-valent, age 2 years and older (PNEUMOVAX 23)11/30/2016,10/15/2016 Family History Medical HistoryRelationNameCommentsCABGFatherRelationNameStatusCommentsFather Social History Tobacco UseTypesPacks/DayYears UsedDateSmoking Tobacco: NeverSmokeless Tobacco: Never Tobacco Cessation:Counseling Given: Not Answered Alcohol UseStandard Drinks/WeekCommentsNever0 (1 standard drink = 0.6 oz pure alcohol)CommentsUnknownSex and Gender InformationValueDate RecordedSex Assigned at BirthNot on fileLegal QadQhphrg94/26/2022 10:20 AM ESTGender IdentityNot on fileSexual OrientationNot on file Last Filed Vital Signs Vital SignReadingTime TakenCommentsBlood Oqjujdoj891/80008/25/2024 8:35 AM EDT Thwzw3031/26/2024 8:35 AM EDTTemperature--Respiratory Rate--Oxygen Saturation-- Inhaled Oxygen Concentration--Bfwotg871 kg (241 lb)08/25/2024 8:35 AM EDTHeight 170.2 cm (5' 7 )08/25/2024 8:35 AM EDTBody Mass Index37.75008/25/2024 8:35 AM EDT Plan of Treatment DateTypeDepartmentCare Team (Latest Contact Info)Fhnqcatmyjn12/05/2025 2:30 PM ESTOffice [address] [phone] Rosalinda Cordova MD [address] [facility] [address] [place] [address] Health MaintenanceDue DateLast DoneCommentsCT Siyipodrkwth1960Diabetes: Hemoglobin A1C1960Diabetes: Urine Protein Tzyoqnjxz1960FIT-DNA (Cologuard)1960FIT1960HIV Pynwhcynw1960Lipid Panel1960 Medicare Annual Wellness Visit (AWV)1960Ramcwflsfwmct1960MMR Vaccines (1 of 1 - Standard series)1Diabetes: Retinopathy Screening 1970Hepatitis C Cuggfpfvn20/03/1978Cervical Cancer Rzpbktjwk47/03/1981 HPV/Kbivqu9811/01/1981Pap Smear11/01/19812699Nyrhcbihl60/03/2000RSV High Risk: (Elderly (60+) or Population) (1 - Risk 50-74 years 1-dose series) 2010Pneumococcal Vaccine (3 of 3 - PCV20 or PCV21)/01/2017, 11/30/2016, 10/15/2016DTaP/Tdap/Td Vaccines (2 - Td or Tdap)/08/2012 Influenza Vaccine (#1), 08/30/2021, 08/30/2019, Additional history existsCOVID-19 Vaccine ( season), 10/16/2022, 09/25/2021, Additional history sxjzasDdwfrkwpoww80 Colorectal Cancer Imwardzys35/07/2033Zoster IjxgvmjzTviatzwqg17/28/2023, 10/28/2022HIB VaccinesAged OutNo longer eligible based on [...] - GeneralFamily Medicine02/22/24 Rosalinda Cordova MD [address] [facility] [address] [place] [address] Consulting PhysicianCardiology02/22/24
--- OUTSIDE RECORDS SUMMARY | 2025-10-11 09:05 | XMS_ITS | Patient Health Record ---
Author Organization [facility] [place] Address [address] [place] [address] Care Team Providers Care Material Disposition Inspector Name Role Phone Charan Delgadillo DO Primary Care Provider Torres Cid [phone] Allergies Allergen (clinical drug ingredient) Drug/Non Drug [...] due to ty pe 2 diabetes mellitus (5800123136302) 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.621) ActiveconfirmedProblemIngrowing nail (648801899)Ingrowing nail (L60.0)Active confirmedProblemChronic ulcer of foot (377051709)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)ActiveconfirmedProblemNon- pressure chronic ulcer of other part of left foot limited to breakdown of skin (L97.521)ActiveconfirmedProblemArthropathy associated with a neurological disorder (99284668)Charcot's joint, right ankle and foot (M14.671)Active confirmedProblemLocalized, primary osteoarthritis of the ankle and/or foot (233359393)Primary osteoarthritis, left ankle and foot (M19.072)Activeconfirmed ProblemAcquired hammer toe of left foot (3062457004263842)Other hammer toe(s) (acquired), left foot (M20.42)ActiveconfirmedProblemDeformity of lower leg (823371411)Other specified acquired deformities of right lower leg (M21.861) ActiveconfirmedProblemArthralgia of the ankle and/or foot (742291519)Pain in right ankle and joints of right foot (M25.571)ActiveconfirmedProblemArthralgia of the ankle and/or foot (246405615)Pain in left ankle and joints of left foot (M25.572)ActiveconfirmedProblemPain in right foot (226897133321833)Pain in right foot (M79.671)ActiveconfirmedProblemPain in left foot (919174033831958)Pain in left foot (M79.672)ActiveconfirmedProblemPseudarthrosis after fusion or arthrodesis (426891036)Pseudarthrosis after fusion or arthrodesis (M96.0)Active confirmedProblemPain associated with internal prosthetic device (disorder) (190834482)Pain due to internal orthopedic prosthetic devices, implants and grafts, initial encounter (T84.84XA)ActiveconfirmedProblemHypertension (90413766)HTN (hypertension) (I10)ActiveconfirmedProblemDiabetic nephropathy (312783812)Diabetic nephropathy (E11.21)ActiveconfirmedProblemHeart disease (13077071)Heart disease (I51.9)ActiveconfirmedProblemChronic ulcer of foot (330233781)Non-pressure chronic ulcer of left heel and midfoot with necrosis of muscle (L97.423)ActiveconfirmedProblemArthropathy associated with a neurological disorder (39295781)Charcot's joint of left foot (M14.672)ActiveconfirmedProblem Dehiscence of surgical wound (disorder) (99312955)Postoperative wound dehiscence, subsequent encounter (T81.31XD)ActiveconfirmedProblemNon-pressure chronic ulcer of left heel and midfoot limited to breakdown of skin (L97.421) ActiveconfirmedProblemHypercholesterolemia (46563349)Hypercholesterolemia (E78.00)ActiveconfirmedProblemArthropathy associated with a neurological disorder (42998728)Charcot's joint of right foot (M14.671)ActiveconfirmedProblem Acquired abduction deformity of left foot (M21.6X2)ActiveconfirmedProblem Diabetes mellitus (76748672)Diabetes mellitus (E11.9)Activeconfirmed Plan Of Treatment Pending Test Test Name Order Date POINT OF CARE GLUCOSE 04/13/2023 PROF CHEM 8 (BAS METB) 03/31/2023 XR foot LAURA min 3V 06/22/2024 Insurance Providers Payer Name Payer Address Payer Phone Subscriber Number Group Number Insured Name Patient Relationship to Insured Coverage Start Date Coverage End Date O [address] [place], [place] [id number] Joy Asher Self - patient is the [...] Spine FusionLumbar Spine FusionLT Ankle exploration/bx Dr SeymourDqkdgg6308 Heart Bgmufm4803/27/2022LT midfoot fustion with corrective osteotomy, talonavicular/subtaler joint fustions, harvest of distal tibial bone graft, gastrocnemius recession/exostectomy Dr Fernandez12/29/2022removal deep implanted hardware left foot04/13/2023ack injectionsHospitalization History Reason Date(Month/Year) see above
== END 2025-10-11 09:02 | disposition home or self-care (01) ==
LOC: WC 09:01
PROVIDERS: PCP Family Medicine; Visit Provider Physician Assistant
DX: E11.621 Type 2 diabetes mellitus with foot ulcer (principal); L97.423 Non-pressure chronic ulcer of left heel and midfoot with necrosis of muscle
CPT/HCPCS: 11043; 29445

== ENCOUNTER 2025-10-18 09:10 | Outpatient (OUT) | payer MEDICARE, SELFPAY ==
--- OUTSIDE RECORDS SUMMARY | 2025-10-18 09:18 | XMS_ITS | CCD ---
Author Organization [facility] Care Team Providers Care Jalousies Installer Name Role Phone Charan Casey Unavailable Unavailable Unavailable Blas Ortiz Unavailable Charan Casey Unavailable Thierno Chatterjee Unavailable Renée Watts Unavailable Elpidio Whipple Unavailable Federico Sepulveda Unavailable [phone] DO Charan Casey Primary Care Provider DO Mathieu Paul Emergency Provider DO Charan Casye Other Provider MD Elpidio Whipple Attending Provider ROSS Ceja Attending Provider MD Dipak Amaro Attending Provider TIMOTEO Watts Attending Provider DO Charan Casey Primary Care Provider Eliud Rod Unavailable DO Charan Casey Primary Care Provider TIMOTEO Watts Attending Provider DO Charan Casey Primary Care Provider TIMOTEO Watts Attending Provider MD Federico Sepulveda Attending Provider [phone] MD Elpidio Whipple Attending Provider ACOSTA CASTRO [...] Scott Consulting Unavailable WESTBRODERICK V Consulting Unavailable [facility] Primary Care Unavailable HIGHLANDER, ACOSTA Scott Attending Unavailable HIGHLMISAEL, AOCSTA Scott Admitting Unavailable HIGHLANDER, ACOSTA Scott Consulting [...] Attending Provider MD Thierno Chatterjee Attending Provider [phone] Yasmeen Treadwell Unavailable Kuns, DO Charan Primary Care Provider MD Blas Ortiz Attending Provider MD Elpidio Whipple Attending Provider Kuns, DO Charan Primary Care Provider MD Thierno Chatterjee Attending Provider [phone] MD Blas Ortiz Attending Provider MD Elpidio Whipple Attending Provider MD Yasmeen Treadwlel Attending Provider [phone] Blas Bellamy Unavailable Kuns, DO Charan Primary Care Provider MD Blas Ortiz Attending Provider Kuns, DO Charan Attending Provider Kuns, DO Charan Primary Care Provider [phone] Kuns, DO Charan Primary Care Provider [phone] Kuns Charan BASSETT Primary Care Provider Rosalinda Torres MD Unavailable [phone] ROSALINDA TORRES Attending Unavailable CHARAN CASEY MINOR Primary Care Unavailable Kuns, DO Charan Primary Care Provider Kuns, DO Charan Attending Provider [phone] MD Blas Ortiz Attending Provider [phone] Kuns, DO Charan Primary Care Provider [phone] Kuns, DO Charan Attending Provider Kuns, DO [...] Kunbryn BASSETT, Charan P Primary Care Provider [phone] Kuns DO, Charan Primary Care Provider Nader Curry DO Attending Provider KunCharan clemente DO Attending Provider Kuns DO, Charan Primary Care Provider [phone] Blas Ortiz MD Attending Provider Kuns Charan BASSETT Primary Care Provider [phone] Nader Curry DO Attending Provider Nader Curry DO Attending Provider Jacinto BASSETT, Charan Primary Care Provider Charan Casey DO Attending Provider [phone] Nader Curry DO Attending Provider Jacinto DO, Charan Primary Care Provider [phone] Jacinto BASSETT, Charan P Primary Care Provider Kuns DO, Charan Primary Care Provider [phone] Brysons DO, Charan Attending Provider Blas Ortiz MD Attending Provider Jacinto BASSETT, Charan Primary Care Provider [phone] Acosta Castro DPM Attending Provider Blas Ortiz Admitting Unavailable Blas Ortiz Attending Unavailable Kuns, Charan Primary Care Unavailable Kuns, Charan Primary Care Unavailable Acosta Castro Admitting Unavailable Acosta Castro Attending Unavailable Marques Curryin Susan Admitting Unavailable Antoinette, Nader A Attending Unavailable Kuns, [...] CASEY Referring Unavailable SHAINA MUNROE Attending Unavailable Charan Casey DO Primary Care Provider [phone] Allergies Allergy ClassificationReported Allergen(s)Allergy TypeDate of OnsetReaction(s) FacilityLincosamides (antibiotic) (1 source)ClindamycinDrug Locldyr24-21-7453vkpb [facility] SystemQuinolones (antibiotic) (1 source)levoFLOXacinDrug Egsmfxf06-03-4064upyywudauuhfAkofijiva [facility] (20 sources)Erythromycin; Translations: [Erythromycin Base TABS]Drug Allergy 99-22-9868oxoldq, Nausea/vomiting, UnknownUnMemorial Health System [facility] (20 sources)ClindamycinDrug Qmemcgh24-47-7748qtob [facility] (20 sources)arzithomycinPropensity to adverse qtccvebsl16-74-2799lcxkdub [facility] (20 sources)erythromycin base; Translations: [Erythromycin Base]Propensity to adverse abgtrxlzj45-98-5596Vfwsur OnlyChildren'S Hospital For Rehabilitation (2 sources)levoFLOXacinDrug AllergyhypoglycemiaNort [facility] Other (20 sources)levoFLOXacin; Translations: [LEVOFLOXACIN]Drug Bwnnail69-19-5953 Nausea/vomiting, GI intoleranceChildren'S Hospital For Rehabilitation Medications Current Medications MedicationDrug Class(es)DatesSig (Normalized)Sig (Original)allopurinol 100 mg oral tablet (20 sources)Xanthine Oxidase InhibitorStart: 06-15-2020 End: 08-93-1673rvdw 1 tablet by mouth in the morningallopurinol (Zyloprim) 100 MG tablet Take 100 mg by mouth in the morning. 02/05/2023 Activeascorbic acid 1000 mg oral tablet (14 sources)Vitamin Ctake 1 tablet by mouth in the morningAscorbic Acid (vitamin C) 1000 MG tablet Take 1,000 mg by mouth in the morning. Activeaspirin 81 mg delayed release oral tablet (20 sources)Platelet Aggregation Inhibitor, Nonsteroidal Anti-inflammatory Drug Start: 55-09-0068xojb 1 tablet by mouth once daily in [...] once daily. 0 Activeb complex vitamins capsule (6 sources)take 1 capsule by mouth in the morningb complex vitamins capsule Take 1 capsule by mouth in the morning. ActiveBioflavonoid Products (Brooke-C) tablet (6 sources)Bioflavonoid Products (Brooke-C) tablet as directed Orally Active Blood-Glucose Sensor (Dexcom G7 Sensor) device (19 sources)Start: 75-01-3696Dsukf-Glucose Sensor (Dexcom G7 Sensor) device Active 0 .Route September 11, 2024 11:00pm As directedStart: 72-26-1917Vycaa- Glucose Sensor (Dexcom G7 Sensor) device Active [...] 0.05 mg oral capsule (20 sources)Vitamin DStart: 32-11-6590bbwo 1 capsule by mouth once daily Cholecalciferol (Vitamin D3) 50 mcg (2,000 unit) capsule Active 50 MCG PO Daily March 01, 2024 12:00am Complies with drug therapyStart: 16-46-1646AOA Vitamin D Maximum Strength 50 MCG (2000 UT) tablet Take by mouth Daily. 12/30/2022 Active clotrimazole 10 mg oral lozenge (1 source)Azole AntifungalStart: 99-45-7830Shzwagczpafm 10 mg deshawn Active 10 MG MUCOUS MEM Five times daily July 12, 2025 12:00am Complies with drug therapyCoenzyme Q10 (CO Q 10 PO) (6 sources)Coenzyme Q10 (CO Q 10 PO) Take by mouth ActiveContinuous Blood Gluc Child And Adolescent Psychologist (Dexcom G7 Child And Adolescent Psychologist) device (9 sources)Start: 69-41-3860Azfeumtczb Blood Gluc Child And Adolescent Psychologist (Dexcom G7 Child And Adolescent Psychologist) device USE DIRECTED 07/16/2023 ActiveContinuous Blood Gluc Sensor (Dexcom G7 Sensor) misc (9 sources)Start: 12-31-7461Fntblkgchw Blood Gluc Sensor (Dexcom G7 Sensor) misc USE DIRECTED, CHANGE EVERY 10 DAYS 08/18/2023 ActiveCoQ-10 (15 sources)CoQ-10 ActiveCoQ-10 100 MG (6 sources)CoQ-10 100 MG as directed Orally ONCE A DAY ActiveDexcom G6 Child And Adolescent Psychologist - (20 sources)Start: 34-70-2244Hlobbx G6 Child And Adolescent Psychologist - use as directed to monitor dexcom sensor Feb, ActiveStart: 81-58-1071Jswblj G6 Sensor - (20 sources)Start: 93-73-8584Ikewsy G6 Sensor - as directed change q 10 days for 90 days Feb, ActiveStart: 25-10-1414Gsfetd G6 Sensor - as directed change q 10 days Feb, ActiveStart: 54-70-4568Iacxvh G6 Transmitter - (20 sources)Start: 41-36-9078Xyakvv G6 Transmitter - as directed change Q 3 months Feb, ActiveStart: 76-55-6786Kvydoq G7 Child And Adolescent Psychologist - (20 sources)Start: 64-54-3794Ocgmvt G7 Child And Adolescent Psychologist - as directed as directed as directed Jun, ActiveDexcom G7 Sensor - (20 sources)Start: 52-98-5401Yozfhb G7 Sensor - as directed as directed change every 10 days for 90 days Jun, ActiveStart: 59-96-6881Ndpehv G7 Sensor - as directed as directed change every 10 days for 30 days Jun, Active diclofenac sodium 20 mg/ml topical solution (20 sources)Nonsteroidal Anti-inflammatory DrugStart: 60-37-4054Grzmxrga 2 % 2 pumps to affected area Transdermal Twice a day Aug, ActiveStart: 90-38-6406jlbukbutenubfy 1.25 mg oral capsule (20 sources)Provitamin D2 CompoundStart: 16-13-3363bioz 1 capsule by mouth once dailyergocalciferol (Vitamin D-2) 1.25 MG (76985 UT) capsule Take 1 capsule (50,000 Units) by mouth oncedaily. 08/29/2021 ActiveStart: 20-60-5028xcst 1 tablet by mouth two times weeklyVitamin D (Ergocalciferol) 1.25 MG (39778 UT) Oral Capsule Take 1 tablet twice weekly Quantity: 0 Refills: 0 Ordered: 14-Jan-2022 DO Start : 29-Aug-2021 ActiveStart: 06-15-2020 End: 26-88-5839rzlh 1 capsule by mouth every weekErgocalciferol (Vitamin D2) 1,250 mcg (50,000 unit) Capsule Discontinued 1250 MCG PO every week June 15, 2020 12:00am March 01, 2024 9:34am thursdaytake 1 capsule by mouth every week Ergocalciferol 43823 UNIT 1 capsule Orally Q week Activetake 1 capsule by mouth every weekErgocalciferol 02739 UNIT 1 capsule Orally Q week ActiveEster-C - (20 sources)Brooke-C - as directed Orally Activefluticasone propionate 0.05 mg/actuat metered dose nasal spray (10 sources)CorticosteroidStart: 97-95-4678zqcf 1 spray(s) nasal route twice dailyFluticasone Propionate 50 MCG/ACT 1 spray in each nostril Nasally Twice a day for 14 days Sep, ActiveStart: 52-57-4048gzzg 1 spray(s) nasal route twice dailyFluticasone Propionate 50 MCG/ACT 1 spray in each nostril Nasally Twice a day for 14 days Sep, Active3 ml insulin degludec 200 unt/ml pen injector (18 sources)Insulin AnalogStart: 36-01-7233tzwqtzf degludec (Tresiba FlexTouch) 200 UNIT/ML injection Indications: Type 2 diabetes mellitus with peripheral neuropathy (HCC) Inject 30 Units under the skin Daily 9 mL 3 07/27/2025 Active Start: 87-68-3793nacckqy degludec (Tresiba FlexTouch) 200 UNIT/ML injection Indications: Type 2 diabetes mellitus with peripheral neuropathy (HCC) Inject 30 Units under the skin Daily 9 mL 3 07/27/2025 ActiveStart: 02-16-2025 End: 05-91-2926Wjlmerv Degludec 200 unit/mL (3 mL) insulin pen Discontinued UNIT SUBCUT February 16, 2025 12:00am March 06, 2025 8:16amStart: 02-14-2025 End: 32-98-3805zzjtrci degludec (Tresiba FlexTouch) 200 UNIT/ML injection Indications: Type 2 diabetes mellitus with peripheral neuropathy (HCC) Inject 60 Units under the skin Daily 9 mL 3 02/14/2025 07/27/2025 Discontinued (Dose adjustment)Insulin Degludec 200 unit/mL (3 mL) insulin pen (5 sources)Start: 76-91-5972Dkiifnw Degludec 200 unit/mL (3 mL) insulin pen Active 60 UNIT SUBCUT Daily March 06, 2025 8:13amStart: 02-16-2025 End: 95-73-0834Jjlewda Degludec 200 unit/mL (3 mL) insulin pen Discontinued UNIT SUBCUT February 16, 2025 12:00am March 06, 2025 8:16amStart: 84-90-6258Rvhzihy Degludec 200 unit/mL (3 mL) insulin pen Active UNIT SUBCUT February 16, 2025 12:00am3 ml insulin lispro 100 unt/ml pen injector (20 sources)Insulin AnalogStart: 36-09-1120TuyyDFJ KWIKPEN 100 UNIT/ML injection Indications: Type 2 diabetes mellitus with peripheral neuropathy (HCC) 10 units breakfast, 14 units dinner plus correction 1:30 > 150 mg/dl (max daily 50 units ) 15 mL 3 08/15/2025 ActiveStart: 02-16-2025 End: 30-00-8942uwvawok lispro (HumaLOG KWIKPEN) 100 UNIT/ML injection Indications: Type 2 diabetes mellitus with peripheral neuropathy (HCC) 10 units breakfast, 14 units dinner plus correction 1:30 > 150 mg/dl (max daily 50 units) 15 mL 3 05/15/2025 ActiveStart: 66-75-0081nuphddp lispro (HumaLOG) 100 UNIT/ML injection Indications: Type 2 diabetes mellitus with peripheral neuropathy (CMS/HCC) 5 units breakfast and dinner 15 mL 3 06/21/2024 ActiveStart: 96-36-4817bljxzr 100 [IU] by subcutaneous injection at bedtimeInsulin Lispro (1 Unit Dial) 100 UNIT/ML Subcutaneous Solution Pen-injector ADMINISTER 5-6 UNITS SUBCUTANEOUSLY IN THE MORNING AND at bedtime Quantity: 12 Refills: 0 Ordered: 06-Apr-2023 DO Start : 06-Apr-2023 ActiveStart: 03-25-2022 End: 67-14-4774qyfxwm 100 [IU] by subcutaneous injection once daily at bedtime as neededInsulin Lispro (Humalog Kwikpen Insulin) 100 unit/mL insulin pen Discontinued 5 - 6 UNIT SUBCUT Twice daily February 23, 2024 5:04pm February 16, 2025 9:40am once a day in the morning and PRN QHSStart: 07-25-2020 End: 84-28-7522ohylnq 5 [IU] by subcutaneous injection once daily at breakfast Insulin Lispro (Humalog Kwikpen Insulin) 100 unit/mL Insulin Pen Discontinued 5 UNIT SUBCUT Daily with breakfast July 25, 2020 12:00am February 23, 2024 5:05pmStart: 06-15-2019 End: 85-72-9689jeilhf 5 [IU] by subcutaneous injection once daily [...] Insulin) 100 unit/mL insulin pen (20 sources)Start: 14-06-8779Pvtwlpa Lispro (Humalog Kwikpen Insulin) 100 unit/mL insulin pen Active 8 - 12 UNIT SUBCUT Twice daily February 16, 2025 9:38am 8 units AM 12 units in the Afternoon and 12 units in the eveningStart: 02-23-2024 End: 37-06-4349enwebw 100 [IU] by subcutaneous injection once daily at bedtime as neededInsulin Lispro (Humalog Kwikpen Insulin) 100 unit/mL insulin pen Discontinued 5 - 6 UNIT SUBCUT Twice daily February 23, 2024 5:04pm February 16, 2025 9:40am once a day in the morning and PRN QHSStart: 76-14-3741oqfjce 100 [IU] by subcutaneous injection once daily at bedtime as neededInsulin Lispro (Humalog Kwikpen Insulin) 100 unit/mL insulin pen Active 5 - 6 UNIT SUBCUT Twice daily February 23, 2024 4:04pm once a day in the morning and PRN QHSStart: 31-53-2326wpucwx 100 [IU] by subcutaneous injection once daily at bedtime as neededInsulin Lispro (Humalog Kwikpen Insulin) 100 unit/mL insulin pen Active 5 - 6 UNIT SUBCUT Twice daily February 23, 2024 5:04pm once a day in the morning and PRN QHS3 ml insulin, regular, human 500 unt/ml pen injector (20 sources)InsulinStart: 76-28-0200hnopajc regular (HumuLIN R U-500 KWIKPEN) 500 UNIT/ML CONCENTRATED injection Indications: Type 2 diabetes mellitus with peripheral neuropathy (CMS/HCC) 55 units breakfast and 25 units dinner 6 mL 3 ActiveStart: 03-01-2024 End: 67-68-7061Fypzvob Regular Hum U-500 Conc (Humulin R U-500 (Conc) Kwikpen) 500 unit/mL (3 mL) insulin pen Discontinued 55 UNIT SUBCUT Twice daily March 01, 2024 9:35am February 16, 2025 9:37amStart: 02-23-2024 End: 01-10-7091uesdld 60 [IU] by subcutaneous injection in the morning, then inject 30 [IU] by subcutaneous injection in the eveningInsulin Regular Hum U-500 Conc (Humulin R U-500 (Conc) Kwikpen) 500 unit/mL (3 mL) insulin pen Disco ntinued 0 SUBCUT As Directed February 23, 2024 5:09pm March 01, 2024 9:42am 60 units in the morning and 30 units in the evening subcutaneously as directed; Start: 28-09-1287vqusqns regular (HumuLIN R U-500 KWIKPEN) 500 UNIT/ML CONCENTRATED injection Indications: Type 2 diabetes mellitus with peripheral neuropathy (CMS/HCC) 55 units breakfast and 25 units dinner 3 mL 10/12/2023 ActiveStart: 61-57-0011dnlohz 60 [IU] by subcutaneous injection in the morning, then inject 30 [IU] by subcutaneous injection in the eveningHumuLIN R U-500 KwikPen 500 UNIT/ML Subcutaneous Solution Pen-injector ADMINISTER 60 UNITS IN THE MORNING AND 30 UNITS IN THE EVENING Quantity: 12 Refills: 0 Ordered: 06-Apr-2023 DO Start : 5-Xru-4930FfvsbfYrigd: 02-11-2018 End: 64-69-7383Wzzwlpl Regular Hum U-500 Conc (Humulin R U-500 (Conc) Insulin) 500 unit/mL solution Discontinued 80 UNIT SUBCUT Daily with breakfast February 11, 2018 11:16am February 12, 2024 12:28pm Patient varies dosage depending on dietary intakeStart: 02-11-2018 End: 53-04-0037yuaqsa 40 [IU] by subcutaneous injection once dailyInsulin Regular Hum U-500 Conc (Humulin R U-500 (Conc) Insulin) 500 unit/mL solution Discontinued 40 UNIT SUBCUT Daily with supper February 11, 2018 11:16am February 12, 2024 12:29pm Pt. varies dosage according to dietary intake.Start: 01-21-2018 End: 34-18-0634svknoj 1 dose by subcutaneous injection four times [...] hs if glucose >225. Please contact the [employer] Handprint source for Protocol details.Start: 01-21-2018 End: 41-50-2392Hjpksxm Regular Hum U-500 Conc (Humulin R U-500 (Conc) Kwikpen) 500 unit/mL (3 mL) Insulin Pen Discontinued 0 .ROUTE .COMPLEX January 21, 2018 1:00am February 11, 2018 11:17am Check glucose ac, hs.Use corrective scale ac tid. Use hs if glucose >225. Please contact the information source for Pr otocol details.Start: 01-17-2018 End: 92-63-0291Yapeewq Regular Hum U-500 Conc (Humulin R U-500 (Conc) Insulin) 500 unit/mL solution Discontinued 90 UNIT SUBCUT Daily with breakfast 0 January 21, 2018 8:54am February 11, 2018 11:16am If eatingStart: 12-25-2017 End: 89-62-6372Fqxxmsp Regular Hum U-500 Conc (Humulin R U-500 (Conc) Insulin) 500 unit/mL Solution Discontinued 80 UNIT SUBCUT Daily with supper 0 January 02, 2018 6:07pm January 17, 2018 1:34amStart: 12-25-2017 End: 92-26-1382Qxkepdw Regular Hum U-500 Conc (Humulin R U-500 (Conc) Insulin) 500 unit/mL Solution Discontinued 100 UNIT SUBCUT Daily with breakfast 0 January 03, 2018 3:07pm January 17, 2018 1:34amStart: 12-25-2017 End: 82-30-2480frnwzd 100 [IU] by subcutaneous injection once daily before breakfastInsulin Regular Human (Humulin R U-100) 100 unit/mL Solution Discontinued 100 UNITS SUBCUT Daily before breakfast December 25, 2017 1:00am December 25, 2017 3:53pmStart: 12-25-2017 End: 39-64-2088fdinym 80 [IU] by subcutaneous injection once dailyInsulin [...] (Probiotic) 3 billion cell capsule (1 source)Start: 37-18-4738zmnp 3 capsules by mouth once dailyLactobacillus Combination No.4 (Probiotic) 3 billion cell capsule Active 3000 MMU CELLS PO Daily July 12, 2025 12:00am administer with a meal Complies with drug therapylevoFLOXacin 500 mg oral tablet (3 sources)Quinolone AntimicrobialStart: 25-02-5176zgov 1 tablet by mouth every twenty-four hourslevoFLOXacin 500 MG 1 tablet Orally Once a day for 7 days Nov, Activelinezolid 600 mg oral tablet (1 source)Oxazolidinone AntibacterialStart: 09-33-9826ptqg 1 tablet by mouth twice dailyLinezolid 600 mg tablet Active 600 MG PO Twice daily July 12, 2025 12:00am Complies with drug therapymagnesium glycinate 100 mg oral tablet (20 sources)Start: 11-76-2797Njljxejwu Glycinate 100 mg Tablet Active 600 MG PO Daily at bedtime June 17, 2019 12:00am Complies with drug therapyStart: 33-84-6456qxrt 600 mg by mouth once daily at bedtimeMagnesium Glycinate Active 600 MG PO Daily at bedtime June 17, 2019 12:00amStart: 01-19-2018 End: 39-41-0499Kjkeoqwxh Glycinate 100 mg Tablet Discontinued 600 MG PO Daily at bedtime January 19, 2018 1:00am February 11, 2018 11:15amStart: 01-19-2018 End: 52-78-6001epkd 600 mg by mouth once daily at bedtimeMagnesium Glycinate Discontinued 600 MG PO Daily at bedtime January 19, 2018 1:00am February 11 11:15amMagnesium Glycinate Plus 600 mg (20 sources)Magnesium Glycinate Plus 600 mg 1 tablet QHS Activenitroglycerin 0.4 mg sublingual tablet (20 sources)Nitrate VasodilatorStart: 70-47-0405Lpmvgbqdpomiy 0.4 mg tablet, sublingual Active 0.4 MG BUCCAL As Directed as needed for Chest Pain March 25, 2022 12:00am Complies with drug therapyStart: 21-58-6822ufdhfsxouyrhc (Nitrostat) 0.4 mg SL tablet Indications: Chest pain, unspecified DISSOLVE 1 TABLET UNDER THE TONGUE EVERY 5 MINUTES NEEDED FOR CHEST PAIN. DO NOT EXCEED A TOTAL OF 3 DOSES IN 15 MINUTES. GO TO THE ER IF PERSISITS. 90 tablet 1 12/24/2023 ActiveStart: 58-49-8150Qtekxlrifoymp Active 0.4 MG BUCCAL As Directed March 24, 2022 11:00pmomega-3 acid ethyl esters (correction) 1000 mg oral capsule (20 sources)Start: 10-26-3728cqhw 1 capsule by mouth in the morningomega-3 acid ethyl esters (Lovaza) 1 g capsule Take 2 g by mouth in the morning and 2 g before bedtime. 03/04/2023 ActiveStart: 06-15-2019 End: 98-46-2086Mzaib-3 Acid Ethyl Esters (Lovaza) 1 gram capsule Discontinued 2 CAP PO Twice daily 360 90 September 23, 2024 11:59am April 11, 2025 4:11pmStart: 12-25-2017 End: 16-68-2263Wgwio-3 Acid Ethyl Esters (Lovaza) 1 gram Capsule Discontinued 2 CAP PO Twice daily December 25, 2017 1:00am January 03, 2018 3:03pmomega-3 acid ethyl esters (Lovaza) 1 gram capsule Take 1 capsule (1 g) by mouth twice a day. ActivePen Needle, Diabetic (2 sources)Start: 65-66-6763Rax Needle, Diabetic Active 0 .Route September 12, 2024 1:53pm As directedStart: 09-12-2024 End: 52-05-1289Ayu Needle, Diabetic Discontinued 0 .Route September 12, 2024 12:00am September 12, 2024 1:53pmAs directedpolyethylene glycol 3350 007997 mg / potassium chloride 2970 mg / sodium bicarbonate 6740 mg / sodium chloride 5860 mg / sodium sulfate 08923 mg powder for oral solution (2 sources)Osmotic LaxativeStart: 32-54-3493Uaeqkbow 236 GM At 4:00 pm the day prior to colonoscopy Orally 8 ounces every 15 minutes for 1 daysPLEASE CHECK ALLERGIES Jul, Activepregabalin 150 mg oral capsule (20 sources)Start: 01-09-2025 End: 88-06-4353odoo 1 capsule by mouth twice dailyPregabalin (Lyrica) 150 mg capsule Active 150 MG PO Twice daily 180 90 January 09, 2025 11:34am Complies with drug therapyStart: 96-36-4432ajce 1 capsule by mouth once in the morning Pregabalin 75 MG 1 capsule Orally Q AM Dec, ActiveStart: 08-02-2021 Start: 31-80-0283wxdv 1 capsule by mouth once in the morningPregabalin 75 MG 1 capsule Orally Q AM Jul, ActiveStart: 04-01-2021 End: 18-62-0067hmfq 1 capsule by mouth once dailyPregabalin (Lyrica) 150 mg capsule Discontinued 150 MG PO Daily 90 February 12, 2024 12:34pm February 12, 2024 5:43pmStart: 04-01-2021 End: 64-37-0594uyqi 2 capsules by mouth once daily in the morningPregabalin 75 mg capsule Discontinued 150 MG PO Every morning April 01, 2021 12:00am February 12, 2024 12:25pmStart: 06-15-2019 End: 68-86-6150hprt 1 capsule by mouth once daily at bedtimePregabalin (Lyrica) 300 mg capsule Discontinued 300 MG PO Daily at bedtime 90 February 12, 2024 12 :35pm February 12, 2024 5:46pmStart: 01-21-2018 End: 30-36-6835yfpm 1 capsule by mouth twice dailyPregabalin (Lyrica) 75 mg Capsule Discontinued 75 MG PO Twice daily January 21, 2018 1:00am February 11, 2018 11:16amStart: 12-25-2017 End: 42-09-5661tllc 1 capsule by mouth twice dailyPregabalin (Lyrica) 300 mg Capsule Discontinued 300 MG PO Twice daily December 25, 2017 1:00am January 03, 2018 3:03pm End: 13-31-5401gvrt 1 capsule by mouth once daily in the morningPREGABALIN ORAL Take 1 capsule by mouth once daily in the morning. 0 02/22/2024 Discontinued (Other)Lyrica CAPS TAKING 150MG IN AM, 300MG IN PM Quantity: 0 Refills: 0 Ordered: 20-Feb-2022 DO ActiveSuper B Complex (20 sources)Super B Complex Activeubidecarenone 300 mg oral capsule (20 sources)Start: 59-24-3165tfnt 10 capsules by mouth once dailyCoenzyme Q10 300 mg capsule Active 300 MG PO Daily March 01, 2024 12:00am Complies with drug therapyStart: 77-73-8402qahd 1 capsule by mouth twice dailyCo-Enzyme Q10 100 MG Oral Capsule TAKE 1 CAPSULE TWICE DAILY. Quantity: 180 Refills: 3 Ordered: Rosalinda Torres MD Start : 08-May-2022 ActiveCoQ-10 100 MG as directed Orally ONCE A DAY Activeubiquinol (2 sources)COQ10, UBIQUINOL, ORAL Take by mouth. TcydlaZAT86, UBIQUINOL, ORAL Take by mouth. 0 ActiveVitamin B Complex (20 sources)Start: 15-76-8309yzkh 1 tablet by mouth once daily in the morning Vitamin B Complex Active 1 TAB PO Every morning June 15, 2019 12:00amStart: 25-77-7010oqkn 1 tablet by mouth once daily in the morningVitamin B Complex Active 1 TAB PO Every morning June 14, 2019 11:00pmVitamin B Complex Tablet (18 sources)Start: 78-80-0411yumj 1 tablet by mouth once daily in the morning Start: 77-74-0278ouox 1 tablet by mouth once daily in the morningVitamin B Complex Tablet Active 1 TAB PO Every morning June 15, 2019 12:00am Complies with drug therapyStart: 58-18-5899cktw 1 tablet by mouth once daily in the morningVitamin B Complex Tablet Active 1 TAB PO Every morning June 15, 2019 12:00amStart: 83-98-0343ylao 1 tablet by mouth once daily in the morningVitamin B Complex Tablet Active 1 TAB PO Every morning June 14, 2019 11:00pm Completed/Discontinued Medications MedicationDrug Class(es)DatesSig (Normalized)Sig (Original)Accu-Chek Vicenta as manufactured (20 sources)Start: 12-11-0119Xlkb-Chek Vicenta as manufactured four times daily 250.92/V58.67 qid Nov, Not-TakingStart: 04-53-7555Lhcx-Chek Vicenta as manufactured four times daily 250.92/V58.67 qid Nov, ActiveStart: 52-33-0948Ynaf-Chek SmartView as manufactured (20 sources)Start: 40-17-8290Njtq-Chek SmartView as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 07-06-3155OmhfddzMkeqc nervous system disorders (3 sources)Polyneuropathy, unspecifiedOnset: 04-30-2022 Resolved: 18-05-6128AnkmpjyCnwjk nervous system disorders (1 source)Hereditary motor and sensory neuropathy; 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]ChronicOther nervous system disorders (9 sources)Carpal tunnel syndrome of right wrist; Translations: [Carpal tunnel syndrome, right upper limb]Onset: 646045-81-1230PsvilzsFaber non-traumatic joint disorders (20 sources)Charcot's joint of foot; Translations: [Charcot's joint, unspecified ankle and foot]03-71-3390JwfhchoColvb non-traumatic joint disorders (20 sources)Arthropathy associated with a neurological disorder; Translations: [Charcot's joint, left ankle andfoot]ChronicOther non-traumatic joint disorders (6 sources)Charcot's joint, left ankle and foot; Translations: [CHARCOTS JOINT LEFT ANKLE AND FO]Onset: 78-58-6818UshehyoEtevd non-traumatic joint disorders (2 sources)Charcot's joint, right ankle and foot; Translations: [CHARCOTS JOINT RIGHT ANKLE AND F]Onset: 69-13-9854AiwizstSxywq non-traumatic joint disorders (20 sources)Pain in left knee; Translations: [Pain in left knee]EpisodicOther non-traumatic joint disorders (20 sources)Pain in right knee; Translations: [Pain in right knee]EpisodicOther non-traumatic joint disorders (20 sources)Arthralgia of the ankle and/or foot; Translations: [Pain in left ankle and joints of left foot]07-33-1748GktwpktnMnmxw non-traumatic joint disorders (18 sources)Pain in right shoulder; Translations: [Right shoulder pain]Onset: 657092-89-8649IdtghehdFnrgk non-traumatic joint disorders (13 sources)Joint pain; Translations: [Pain in unspecified joint]01-09-2025 EpisodicOther nutritional; endocrine; and metabolic disorders (20 sources)Obesity; Translations: [Obesity, unspecified]Onset: 02-22-2024 03-94-1313OmqkkuhOqxvh nutritional; endocrine; and metabolic disorders (20 sources)Hypercalcemia; Translations: [Hypercalcemia]ChronicOther nutritional; endocrine; and metabolic disorders (20 sources)Hypomagnesemia; Translations: [Hypomagnesemia]37-76-4240AfvlrdcRuvjk nutritional; endocrine; and metabolic disorders (6 sources)Hypomagnesemia; Translations: [Disorders of magnesium metabolism] ChronicOther nutritional; endocrine; and metabolic disorders (2 sources)Obesity, unspecified; Translations: [Obesity, unspecified]Onset: 91-19-6355VtuvlooOrwci nutritional; endocrine; and metabolic disorders (2 sources)Body mass index (BMI) 37.0-37.9, adult; Translations: [Body mass index (BMI) 37.0-37.9, adult]Onset: 24-77-6577DixzjhoAcjaf nutritional; endocrine; and metabolic disorders (15 sources)Severe obesity; Translations: [Class 2 severe obesity due to excess calories with serious comorbidity and body mass index (BMI) of 39.0 to 39.9 in adult ([facility])]Onset: 693989-42-5710DisibejRpqof nutritional; endocrine; and metabolic disorders (12 sources)Hyperuricemia without signs of inflammatory arthritis and tophaceous disease; Translations: [Other abnormal blood chemistry]Onset: 12-03-2021 Resolved: 96-57-9742MowyloccPdnpl nutritional; endocrine; and metabolic disorders (20 sources)Hyperuricemia; Translations: [Hyperuricemia without signs of inflammatory arthritis and tophaceous disease]43-72-9027PjclbfzmUvwpt nutritional; endocrine; and metabolic disorders (20 sources)H/O: metabolic disorder; Translations: [Personal history of other endocrine, nutritional and metabolic disease]67-20-9724QdwlztgmWmaka screening for suspected conditions (not mental disorders or infectious disease) (20 sources)Cardiovascular finding; Translations: [Abnormal findings on diagnostic imaging of other specified body structures]28-42-0440ZuklxxpLfdzg screening for suspected conditions (not mental disorders or infectious disease) (14 sources)Electrocardiogram abnormal; Translations: [Nonspecific abnormal electrocardiogram [ECG] [EKG]]Onset: 67-32-7881CsbkvuqxErjzv upper respiratory infections (1 source)Acute pansinusitis, unspecifiedEpisodicPancreatic disorders (not diabetes) (20 sources)Pancreatitis; Translations: [Acute pancreatitis without necrosis or infection, unspecified]07-03-3217JvxciuhrTzrdezsw codes; unclassified (20 sources)Obstructive sleep apnea syndrome; Translations: [Obstructive sleep apnea (adult)(pediatric)]Onset: 484199-68-0377YverrexPoxxcxrv codes; unclassified (8 sources)Obstructive sleep apnea (adult) (pediatric); Translations: [Obstructive sleep apnea (adult)(pediatric)]Onset: 02-07-2022 Resolved: 18-40-2119TguebweAzprdila codes; unclassified (20 sources)Sleep apnea; Translations: [Sleep apnea, unspecified]ChronicResidual codes; unclassified (2 sources)Sleep apnea, unspecified; Translations: [SLEEP APNEA UNSPECIFIED] Onset: 45-69-0568EkmeftoVvlhjsbu codes; unclassified (20 sources)Insomnia; Translations: [Insomnia, unspecified]17-37-6455Kztzshfx Residual codes; unclassified (2 sources)Other specified postprocedural statesOnset: 04-14-2022 Resolved: 95-12-1013IpxrjmqzUmeywtbs codes; unclassified (3 sources)Insomnia, unspecifiedOnset: 04-30-2022 Resolved: 29-98-1420UfjdnniqEhhaprbx codes; unclassified (14 sources)Family history of dementia; Translations: [Family history of other mental and behavioral disorders]97-35-7585PebgbkgkWpwlowwy codes; unclassified (9 sources)Family history of other mental and behavioral disorders; Translations: [Family history of other neurological diseases]03-04-3166Smzyzzcg Septicemia (except in labor) (20 sources)Septic shock; Translations: [Sepsis, unspecified organism]02-17-2018 EpisodicSpondylosis; intervertebral disc disorders; other back problems (20 sources)Cervical spondylosis without myelopathy; Translations: [Spondylosis without myelopathy or radiculopathy, cervical region]Onset: 10-01-2021 Resolved: 81-01-0948JucqbntXhqulkdwvqg; intervertebral disc disorders; other back problems (20 sources)Neck pain; Translations: [Cervicalgia]Onset: 10-01-2021 Resolved: 84-48-9663XltlaikoSqnnwwn and strains (15 sources)Traumatic rupture of biceps tendon; Translations: [Strain of muscle, fascia and tendon of long headof biceps, unspecified arm, initial encounter] 47-77-5230HwlvmzjuJadtsxlkuppb (1 source)CONTACT W/AND (SUSP) EXPOS COVID-19; Translations: [CONTACT W/AND (SUSP) EXPOS COVID-19]Onset: 42-88-4030Jcphfbtvpuft (1 source)Cough, unspecified; Translations: [Cough, unspecified]Onset: 12-08-2024 Past or Other Problems Problem ClassificationProblemDateDocumented DateEpisodic/ChronicAcquired foot deformities (3 sources)Varus deformity, not elsewhere classified, left ankle; Translations: [Valgus deformity, not elsewhere classified, left ankle]Onset: 01-06-2023 EpisodicCardiac dysrhythmias (6 sources)Ventricular premature beats; Translations: [Other premature beats] Resolved: 56-84-3967PwnbnqvMetcbwt kidney disease (20 sources)Chronic kidney disease; Translations: [Chronic kidney disease, stage III (moderate)]Onset: 02-20-2022 Resolved: 11-18-8844Mcgmk acquired deformities (20 sources)Lumbar spondylolisthesis; Translations: [Spondylolisthesis, lumbar region]Onset: 135272-93-9067VuzboromCdiuo aftercare (20 sources)Long-term current use of insulin; 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: [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]Onset: 203746-76-4789QsadtjzvKpdlk aftercare (1 source)Other residential (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 therapy; Translations: [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]Onset: 05-25-6515BspijcobZllpu aftercare (1 source)[facility] (current) use of insulin; Translations: [[employer]ING [employer]ING [employer] CURRENT USE OF INSULIN]Onset: 23-01-3468UntushshIjniy aftercare (1 source)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; Translations: [[facility] CURRENT USE OF ASPIRIN]Onset: 18-36-0773AztfgcfvKmuwj aftercare (1 source)[facility] (current) use of anticoagulants; Translations: [[employer]ISTING [employer]IVING [employer] CURRNT USE ANTICOAGULANTS]Onset: 11-93-7021EpmuvfwnPjebf bone disease and musculoskeletal deformities (1 source)Other specified disorders of bone density and structure, left ankle and foot; Translations: [OT D/O BONE DEN STRUCT LT ANK FOOT]Onset: 01-06-2023 EpisodicOther connective tissue disease (4 sources)Pain in left foot; Translations: [PAIN IN LEFT FOOT]Onset: 11-16-2022 EpisodicOther connective tissue disease (1 source)Pain in right foot; Translations: [PAIN IN RIGHT FOOT]Onset: 25-63-0127IaeiytduCrszl connective tissue disease (20 sources)Unspecified rotator cuff tear or rupture of right shoulder, not specified as traumatic; Translations: [Disorders of bursae and tendons in shoulder region, unspecified]Onset: 845565-19-6333OvzzxxhcYhxvr lower respiratory disease (6 sources)Dyspnea on exertion; Translations: [Other respiratory abnormalities] Resolved: 20-20-5130YeaotyjcNfzyp lower respiratory disease (2 sources)Shortness of breathOnset: 02-07-2022 Resolved: 66-71-2554WgurwyjzQfyda non-traumatic joint disorders (4 sources)Pain in right ankle and joints of right foot; Translations: [PAIN IN RIGHT ANKLE]Onset: 90-45-7553UnjmdcfuRxcfs non-traumatic joint disorders (1 source)Pain in left ankle and joints of left foot; Translations: [PAIN IN LEFT ANKLE]Onset: 24-31-6921FefuwjoiCzuthmop codes; unclassified (6 sources)History of palpitations; Translations: [Personal history of other diseases of circulatory system] Resolved: 12-42-7711JemrldqkNrbdhmys codes; unclassified (1 source)Acquired absence of other specified parts of digestive tract; Translations: [ACQ ABSENCE OTH PART DIGESTV TRACT]Onset: 45-92-0661Cewwwvgm Substance-related disorders (1 source)Opioid use, unspecified, uncomplicatedOnset: 10-01-2021 Resolved: 97-89-4189ZqzztrtrQsozkgsjhuov (6 sources)Never smoked tobacco; Translations: [Never a smoker]Unclassified (1 source)Cough R05.9Onset: 12-03-2021 Resolved: 17-79-9469Xnjzhxhvdoor (1 source)Low back pain, unspecified M54.50Unclassified (2 sources)Onset: 112734-33-1862 Results Test NameValueInterpretationReference RangeFacilityBasophils Auto (Bld) [#/Vol] Ordered By: Karla Lyons on 15-82-0440Gpfxfducn (Bld) [#/Vol]0.0 10 3/uL0.0-0.1 [facility] RehabilitationBasophils/100 WBC Auto (Bld)Ordered By: Karla Lyons on 03-07-8871Qnukjtdhd/100 WBC (Bld)0.1 %Low0.2-2.0[facility] RehabilitationEosinophils/100 WBC Auto (Bld)Ordered By: Karla Lyons on 29-23-6544Kuetqiipljt/100 WBC (Bld)0.0 %Low0.9-7.0[facility] RehabilitationErythrocyte distribution width Auto (RBC) [Ratio]Ordered By: Karla Lyons on 76-07-6851Wybdxuqmtyz distribution width (RBC) [Ratio]12.2 %11.0-15.0 [facility] RehabilitationGlobulin Calc (S) [Mass/Vol]Ordered By: Karla Lyons on 63-00-0634Igcpofba (S) [Mass/Vol]4.1 g/dLChildren'S Hospital For RehabilitationGlomerular filtration rate (GFR) estimation in non- AmericanOrdered By: Karla Lyons on 54-69-5461KWC/1.73 sq M.predicted among non-blacks MDRD (S/P/Bld) [Vol rate/Area]34 mL/min/{1.73_m2}Low>=60 mL/min/1.73m 2FSt. Charles HospitalHematocrit Auto (Bld) [Volume fraction]Ordered By: Karla Lyons on 94-65-3936Oqmvotbnvm (Bld) [Volume fraction]30.3 %Low36.0-48.0 [facility] RehabilitationHemoglobin [Mass/volume] in BloodOrdered By: Karla Lyons on 01-39-9732Lgsilquwma (Bld) [Mass/Vol]10.1 g/dLLow12.0-16.0 [facility] RehabilitationLaboratory - Chemistry and Chemistry - challengeOrdered By: Karla Lyosn on 11-94-0027Jkejvzm [Mass/Vol]1.9 g/dLLow 3.4-5.0[facility] RehabilitationALP [Catalytic activity/Vol]99 U/L46-116 [facility] RehabilitationALT [Catalytic activity/Vol]23 U/L14-59 [facility] RehabilitationAST [Catalytic activity/Vol]14 U/BLbo24-10 [facility] RehabilitationBilirubin [Mass/Vol]0.3 mg/dL0.2-1.0[facility] RehabilitationCalcium [Mass/Vol]8.6 mg/dL8.5-10.1FSt. Charles HospitalChloride [Moles/Vol]106 mmol/J00-994BakeoxyatChildren'S Hospital For RehabilitationCO2 [Moles/Vol]23.0 mmol/L21.0-32.0[facility] Creatinine [Mass/Vol]1.54 mg/dLHigh0.55-1.02[facility] GFR/1.73 sq M.predicted MDRD (S/P/Bld) [Vol rate/Area]41 mL/min/{1.73_m2}Low>=60 mL/min/1.73m 2FSt. Charles HospitalGlucose [Mass/Vol]253 mg/dLHigh 74-106[facility] RehabilitationMagnesium [Mass/Vol]1.7 mg/dLLow1.8-2.4 [facility] RehabilitationPotassium [Moles/Vol]5.0 mmol/L3.5-5.1FSt. Charles HospitalProtein [Mass/Vol]6.0 g/dLLow6.4-8.2FParma Community General Hospitalodium [Moles/Vol]138 mmol/H806-424JwnnpdiwbChildren'S Hospital For RehabilitationUrea nitrogen [Mass/Vol]56.0 mg/dLHigh7.0-18.0[facility] RehabilitationUrea nitrogen/Creatinine [Mass ratio]36.4 mg/mgChildren'S Hospital For RehabilitationLaboratory - Hematology and Cell countsOrdered By: Karla Lyons on 79-52-2119BYE (Bld) [Velocity]106 mm/hHigh<=30[facility] Immature granulocytes/100 WBC (Bld)0.8 %High0.0-0.5FSt. Charles HospitalLeukocytes [#/volume] corrected for nucleated erythrocytes in Blood by Automated counOrdered By: Karla Lyons on 02-94-6857PHI corrected for nucl RBC Auto (Bld) [#/Vol]11.8 10 3/uLHigh4.0-11.0[facility] Lymphocytes Auto (Bld) [#/Vol]Ordered By: Karla Lyons on 34-68-5314Zasyltgkrpd (Bld) [#/Vol]0.8 10 3/uLLow1.2-3.8[facility] Lymphocytes/100 WBC Auto (Bld)Ordered By: Karla Lyons on 06-30-2025 Lymphocytes/100 WBC (Bld)7.0 %Low20.5-60.0[facility] For RehabilitationMCH Auto (RBC) [Entitic mass]Ordered By: Karla Lyons on 56-68-2993HGE (RBC) [Entitic mass]29.3 pg26.7-34.0[facility] For RehabilitationMCHC Auto (RBC) [Mass/Vol]Ordered By: Karla Lyons on 60-83-2887QBLO (RBC) [Mass/Vol]33.3 g/dL 29.9-35.2FSt. Charles HospitalMCV Auto (RBC) [Entitic vol]Ordered By: Karla Lyons on 37-85-5112SSQ (RBC) [Entitic vol]87.8 fL81.0-99.0[facility] For RehabilitationMonocytes Auto (Bld) [#/Vol]Ordered By: Karla Lyons on 14-32-4623Vwkixftjs (Bld) [#/Vol]0.5 10 3/uL0.3-0.8[facility] RehabilitationMonocytes/100 WBC Auto (Bld)Ordered By: Karla Lyons on 06-30-2025 Monocytes/100 WBC (Bld)3.9 %1.7-12.0[facility] For RehabilitationNeutrophils Auto (Bld) [#/Vol]Ordered By: Karla Lyons on 04-32-5984Gebvdtwsudj (Bld) [#/Vol]10.4 10 3/uLHigh1.4-6.5FSt. Charles HospitalNeutrophils/100 WBC Auto (Bld)Ordered By: Karla Lyons on 28-77-3306Llnswtziwou/100 WBC (Bld) 88.2 %High43.0-75.0[facility] RehabilitationNo Panel InformationOrdered By: Gustavo Cuevas on 80-13-4631Uwbkphai Identification OnlyChildren'S Hospital For RehabilitationNo Panel InformationOrdered By: Karla Lyons on 53-20-3878T- Reactive Protein, Bxcoetyrbxrl35.95 mg/dLHigh<=0.50[facility] For RehabilitationEosinophils # (Auto)0.0 10 3/uL0.0-0.7FSt. Charles Hospital Immature Granulocyte # (Auto)0.09 10 3/uLHigh0.00-0.03[facility] For RehabilitationPlatelet mean volume Auto (Bld) [Entitic vol]Ordered By: Karla Lyons on 17-58-8033Xltbxhmp mean volume (Bld) [Entitic vol]11.5 fL9.5-13.5FSt. Charles HospitalPlatelets Auto (Bld) [#/Vol]Ordered By: Karla Lyons on 45-53-3518Gynwykhtu (Bld) [#/Vol]184 10 3/xH749-860IyqdzgbruChildren'S Hospital For RehabilitationRBC Auto (Bld) [#/Vol]Ordered By: Karla Lyons on 84-82-8956NZW (Bld) [#/Vol]3.45 10 6/uLLow4.20-5.40[facility] Healtherum or plasma albumin/globulin mass ratioOrdered By: Karla Lyons on 06-30-2025 Albumin/Globulin [Mass ratio]0.5 {ratio}[facility] Healtherum or plasma anion gap determinationOrdered By: Karla Lyons on 53-29-4777Fsvdw gap [Moles/Vol]14.0 mmol/LFSt. Charles HospitalBasophils Auto (Bld) [#/Vol]Ordered By: Karla Lyons on 05-24-6345Gpmksrhei (Bld) [#/Vol]0.0 10 3/uL 0.0-0.1FSt. Charles HospitalBasophils/100 WBC Auto (Bld)Ordered By: Karla Lyons on 21-28-9069Vmvktokon/100 WBC (Bld)0.1 %Low0.2-2.0[facility] RehabilitationEosinophils/100 WBC Auto (Bld)Ordered By: Karla Lyons on 61-53-8429Qhprotsepqr/100 WBC (Bld)0.1 %Low0.9-7.0[facility] For RehabilitationErythrocyte distribution width Auto (RBC) [Ratio]Ordered By: Karla Lyons on 37-03-0476Zuioppmndna distribution width (RBC) [Ratio]12.3 %11.0-15.0 [facility] For RehabilitationGlobulin Calc (S) [Mass/Vol]Ordered By: Karla Lyons on 85-10-7740Ghrpacxq (S) [Mass/Vol]4.3 g/dLChildren'S Hospital For RehabilitationGlomerular filtration rate (GFR) estimation in non- AmericanOrdered By: Karla Lyons on 07-91-9216LKB/1.73 sq M.predicted among non-blacks MDRD (S/P/Bld) [Vol rate/Area]31 mL/min/{1.73_m2}Low>=60 mL/min/1.73m 2FSt. Charles HospitalHematocrit Auto (Bld) [Volume fraction]Ordered By: Karla Lyons on 41-59-6212Wrsuxbifeh (Bld) [Volume fraction]31.1 %Low36.0-48.0 [facility] RehabilitationHemoglobin [Mass/volume] in BloodOrdered By: Karla Lyons on 31-52-1229Wkguskybvs (Bld) [Mass/Vol]10.6 g/dLLow12.0-16.0 [facility] RehabilitationLaboratory - Chemistry and Chemistry - challengeOrdered By: Karla Lyons on 94-31-3865Fvewaxe [Mass/Vol]2.1 g/dLLow 3.4-5.0[facility] RehabilitationALP [Catalytic activity/Vol]88 U/L46-116 [facility] RehabilitationALT [Catalytic activity/Vol]17 U/L14-59 [facility] RehabilitationAST [Catalytic activity/Vol]14 U/YAod25-08 [facility] RehabilitationBilirubin [Mass/Vol]0.5 mg/dL0.2-1.0[facility] RehabilitationCalcium [Mass/Vol]8.9 mg/dL8.5-10.1FSt. Charles HospitalChloride [Moles/Vol]104 mmol/N77-754RszfoirkdChildren'S Hospital For RehabilitationCO2 [Moles/Vol]21.2 mmol/L21.0-32.0[facility] Creatinine [Mass/Vol]1.68 mg/dLHigh0.55-1.02[facility] GFR/1.73 sq M.predicted MDRD (S/P/Bld) [Vol rate/Area]37 mL/min/{1.73_m2}Low>=60 mL/min/1.73m 2FSt. Charles HospitalGlucose [Mass/Vol]201 mg/dLHigh 74-106[facility] RehabilitationPotassium [Moles/Vol]5.1 mmol/L3.5-5.1 [facility] RehabilitationProtein [Mass/Vol]6.4 g/dL6.4-8.2FParma Community General Hospitalodium [Moles/Vol]137 mmol/T034-144KkiqcqlvdChildren'S Hospital For RehabilitationUrea nitrogen [Mass/Vol]62.0 mg/dLHigh7.0-18.0[facility] RehabilitationUrea nitrogen/Creatinine [Mass ratio]36.9 mg/mgChildren'S Hospital For RehabilitationLaboratory - Chemistry and Chemistry - challengeOrdered By: Elpidio Whipple on 41-49-8353Kkatpwiul [Mass/Vol]1.9 mg/dL1.8-2.4FSt. Charles HospitalLaboratory - Hematology and Cell countsOrdered By: Karla Lyons on 85-43-7773Vhfxramg granulocytes/100 WBC (Bld)0.3 %0.0-0.5FSt. Charles HospitalLeukocytes [#/volume] corrected for nucleated erythrocytes in Blood by Automated counOrdered By: Karla Lyons on 18-62-4586OJR corrected for nucl RBC Auto (Bld) [#/Vol]14.5 10 3/uLHigh4.0-11.0[facility] For RehabilitationLymphocytes Auto (Bld) [#/Vol]Ordered By: Karla Lyons on 06-29-2025 Lymphocytes (Bld) [#/Vol]0.7 10 3/uLLow1.2-3.8[facility] Lymphocytes/100 WBC Auto (Bld)Ordered By: Karla Lyons on 06-29-2025 Lymphocytes/100 WBC (Bld)4.9 %Low20.5-60.0[facility] Auto (RBC) [Entitic mass]Ordered By: Karla Lyons on 38-03-3148DXT (RBC) [Entitic mass]30.1 pg26.7-34.0[facility] For RehabilitationMCHC Auto (RBC) [Mass/Vol]Ordered By: Karla Lyons on 12-51-0663FACS (RBC) [Mass/Vol]34.1 g/dL 29.9-35.2FSt. Charles HospitalMCV Auto (RBC) [Entitic vol]Ordered By: Karla Lyons on 43-93-4423XJA (RBC) [Entitic vol]88.4 fL81.0-99.0[facility] RehabilitationMonocytes Auto (Bld) [#/Vol]Ordered By: Karla Lyons on 01-49-0592Ofbojcquo (Bld) [#/Vol]0.7 10 3/uL0.3-0.8[facility] RehabilitationMonocytes/100 WBC Auto (Bld)Ordered By: Karla Lyons on 06-29-2025 Monocytes/100 WBC (Bld)4.8 %1.7-12.0[facility] For RehabilitationNeutrophils Auto (Bld) [#/Vol]Ordered By: Karla Lyons on 73-32-4346Cttlcwvxsfe (Bld) [#/Vol]13.0 10 3/uLHigh1.4-6.5FSt. Charles HospitalNeutrophils/100 WBC Auto (Bld)Ordered By: Karla Lyons on 49-03-1488Dqonkjnaxfj/100 WBC (Bld) 89.8 %High43.0-75.0[facility] RehabilitationNo Panel InformationOrdered By: Karla Lyons on 23-95-3905Gulboiglivk # (Auto)0.0 10 3/uL0.0-0.7FSt. Charles HospitalImmature Granulocyte # (Auto)0.05 10 3/uLHigh0.00-0.03 [facility] RehabilitationPlatelet mean volume Auto (Bld) [Entitic vol] Ordered By: Karla Lyons on 10-55-2083Pssmyswa mean volume (Bld) [Entitic vol] 11.4 fL9.5-13.5FSt. Charles HospitalPlatelets Auto (Bld) [#/Vol] Ordered By: Karla Lyons on 46-32-0177Cbuxtakbv (Bld) [#/Vol]178 10 3/eD698-645 [facility] For RehabilitationRBC Auto (Bld) [#/Vol]Ordered By: Karla Lyons on 23-27-6012ZQT (Bld) [#/Vol]3.52 10 6/uLLow4.20-5.40[facility] Healtherum or plasma albumin/globulin mass ratioOrdered By: Karla Lyons on 70-35-2736Btmyhwj/Globulin [Mass ratio]0.5 {ratio}[facility] Healtherum or plasma anion gap determinationOrdered By: Karla Lyons on 52-34-9112Txbsk gap [Moles/Vol]16.9 mmol/LFSt. Charles Hospital Basophils Auto (Bld) [#/Vol]Ordered By: Charan Casey on 15-25-3125Ajticfhsx (Bld) [#/Vol]0.0 10 3/uL0.0-0.1FSt. Charles HospitalBasophils/100 WBC Auto (Bld)Ordered By: Chraan Casey on 48-15-1118Fbucacqvl/100 WBC (Bld)0.1 %Low0.2-2.0 [facility] RehabilitationEosinophils/100 WBC Auto (Bld)Ordered By: Charan Casey on 39-87-8295Jahfflqeuzu/100 WBC (Bld)0.1 %Low0.9-7.0[facility] For RehabilitationErythrocyte distribution width Auto (RBC) [Ratio]Ordered By: Charan Casey on 30-08-8193Tzfuxieimic distribution width (RBC) [Ratio]12.1 %11.0-15.0 [facility] For RehabilitationGlobulin Calc (S) [Mass/Vol]Ordered By: Gustavo Cuevas on 08-83-1500Juhxpnyq (S) [Mass/Vol]4.6 g/dLChildren'S Hospital For RehabilitationGlomerular filtration rate (GFR) estimation in non- AmericanOrdered By: Gustavo Cuevas on 25-07-1983GWD/1.73 sq M.predicted among non-blacks MDRD (S/P/Bld) [Vol rate/Area]19 mL/min/{1.73_m2}Low>=60 mL/min/1.73m 2FSt. Charles HospitalHematocrit Auto (Bld) [Volume fraction]Ordered By: Charan Casey on 84-96-1156Rdyafygdnx (Bld) [Volume fraction]33.7 %Low36.0-48.0[facility] For RehabilitationHemoglobin [Mass/volume] in BloodOrdered By: Charan Casey on 27-62-3036Uepagmeeya (Bld) [Mass/Vol]11.7 g/dLLow12.0-16.0[facility] For RehabilitationINR in Platelet poor plasma by Coagulation assayOrdered By: Gustavo Cuevas on 60-32-3056UMD Coag (PPP) [Relative time]1.02 {INR}[facility] For RehabilitationComment on above:DESIRED INR:2.0-3.0 CONDITIONS NOT LISTED BELOW2.5-3.5 FOR PROSTHETIC HEART VALVE REPLACEMENT2.5-3.5 RECURRENT THROMBOSISLaboratory - Chemistry and Chemistry - challengeOrdered By: Gustavo Cuevas on 70-26-3646Wxqusxc [Mass/Vol]2.7 g/dLLow3.4-5.0[facility] For RehabilitationALP [Catalytic activity/Vol]90 U/J02-857DzpoaomhrChildren'S Hospital For Rehabilitation ALT [Catalytic activity/Vol]23 U/S34-98ZopohevdsChildren'S Hospital For RehabilitationAST [Catalytic activity/Vol]25 U/X69-43JckhszzkgChildren'S Hospital For RehabilitationBilirubin [Mass/Vol]0.6 mg/dL0.2-1.0[facility] RehabilitationCalcium [Mass/Vol]9.3 mg/dL8.5-10.1FSt. Charles HospitalChloride [Moles/Vol]99 mmol/L 98-107[facility] RehabilitationCO2 [Moles/Vol]22.3 mmol/L21.0-32.0 [facility] RehabilitationCreatinine [Mass/Vol]2.58 mg/dLHigh0.55-1.02 [facility] RehabilitationGFR/1.73 sq M.predicted MDRD (S/P/Bld) [Vol rate/Area]23 mL/min/{1.73_m2}Low>=60 mL/min/1.73m 2FSt. Charles HospitalGlucose [Mass/Vol]81 mg/kI89-328KhayuutgsChildren'S Hospital For RehabilitationLactate [Moles/Vol]1.3 mmol/L0.4-2.0[facility] RehabilitationPotassium [Moles/Vol]4.9 mmol/L3.5-5.1FSt. Charles HospitalProtein [Mass/Vol] 7.3 g/dL6.4-8.2FParma Community General Hospitalodium [Moles/Vol]136 mmol/L 136-145[facility] RehabilitationUrea nitrogen [Mass/Vol]72.0 mg/dLHigh 7.0-18.0[facility] RehabilitationUrea nitrogen/Creatinine [Mass ratio] 27.9 mg/mgChildren'S Hospital For RehabilitationLaboratory - Hematology and Cell countsOrdered By: Charan Casey on 66-10-0143WXG (Bld) [Velocity]104 mm/hHigh<=30 [facility] For RehabilitationImmature granulocytes/100 WBC (Bld)0.5 %0.0-0.5 [facility] For RehabilitationLeukocytes [#/volume] corrected for nucleated erythrocytes in Blood by Automated counOrdered By: Charan Casey on 70-17-2126GTU corrected for nucl RBC Auto (Bld) [#/Vol]17.3 10 3/uLHigh4.0-11.0[facility] For RehabilitationLymphocytes Auto (Bld) [#/Vol]Ordered By: Charan Casey on 62-14-9426Qrvnkqodpdq (Bld) [#/Vol]0.7 10 3/uLLow1.2-3.8[facility] RehabilitationLymphocytes/100 WBC Auto (Bld)Ordered By: Charan Casey on 06-28-2025 Lymphocytes/100 WBC (Bld)4.0 %Low20.5-60.0[facility]H Auto (RBC) [Entitic mass]Ordered By: Charan Casey on 87-64-9793BPR (RBC) [Entitic mass]30.4 pg26.7-34.0[facility] For RehabilitationMCHC Auto (RBC) [Mass/Vol] Ordered By: Charan Casey on 67-02-2142QFCO (RBC) [Mass/Vol]34.7 g/dL29.9-35.2 [facility] For RehabilitationMCV Auto (RBC) [Entitic vol]Ordered By: Charan Casey on 06-71-0926YJD (RBC) [Entitic vol]87.5 fL81.0-99.0[facility] For RehabilitationMonocytes Auto (Bld) [#/Vol]Ordered By: Charan Casey on 06-28-2025 Monocytes (Bld) [#/Vol]0.7 10 3/uL0.3-0.8[facility] Monocytes/100 WBC Auto (Bld)Ordered By: Charan Casey on 89-95-3778Dedyufzzk/100 WBC (Bld)4.0 %1.7-12.0[facility] For RehabilitationNeutrophils Auto (Bld) [#/Vol]Ordered By: Charan Casey on 46-35-2568Nhbjqdslaeb (Bld) [#/Vol]15.8 10 3/uL High1.4-6.5FSt. Charles HospitalNeutrophils/100 WBC Auto (Bld) Ordered By: Charan Casey on 86-85-5125Dqimmelkfno/100 WBC (Bld)91.3 %High43.0-75.0 [facility] RehabilitationNo Panel InformationOrdered By: Charan Casey on 48-83-5599R-Reactive Protein, Ozemcndsgxeb48.00 mg/dLHigh<=0.50[facility] For RehabilitationEosinophils # (Auto)0.0 10 3/uL0.0-0.7FSt. Charles HospitalImmature Granulocyte # (Auto)0.09 10 3/uLHigh0.00-0.03[facility] RehabilitationNo Panel InformationOrdered By: Gustavo Cuevas on 06-28-2025 Venous Blood Partial Pressure CO241.7 mm[Hg]40.0-52.0[facility] For RehabilitationVenous Blood pH7.3547.330-7.430[facility] For RehabilitationPlatelet mean volume Auto (Bld) [Entitic vol]Ordered By: Charan Casey on 64-15-1519Fpgxvrxv mean volume (Bld) [Entitic vol]11.8 fL9.5-13.5FSt. Charles Hospital Platelets Auto (Bld) [#/Vol]Ordered By: Charan Casey on 25-51-4355Byxduyzyz (Bld) [#/Vol]178 10 3/oB605-940WsdhkjthpChildren'S Hospital For RehabilitationProthrombin time (PT) Ordered By: Gustavo Cuevas on 61-70-4253RR Coag (PPP) [Time]10.8 s9.0-11.6FSt. Charles HospitalRBC Auto (Bld) [#/Vol]Ordered By: Charan Casey on 46-21-2263FWE (Bld) [#/Vol]3.85 10 6/uLLow4.20-5.40K[facility]tering Healtherum or plasma albumin/globulin mass ratioOrdered By: Gustavo Cuevas on 45-65-4647Bjiiqgl/Globulin [Mass ratio]0.6 {ratio}[facility] Healtherum or plasma anion gap determinationOrdered By: Gustavo Cuevas on 10-85-3014Tppse gap [Moles/Vol]19.6 mmol/LFSt. Charles HospitalX-ray reportOrdered By: Néstor Mays on 05-59-2463Pzxgu reportCLEVELAND CLIN[facility] [address] XRay Report Signed Patient: Rita Cobb MR#: [id number] : 1960 Acct:[id number] Age/Sex: 64 / F ADM Date: 5 [facility] Attending Dr: Acosta Castro DPM MS Copies to: Acosta Castro DPM, ~ Ordering Provider: Acosta Castro DPM, MS Date [...] Negative acute osseous abnormality. Impression dictated by: Nsétor Mays M.D. 06/05/2025 5:41 PM Dictation Location: [place] [address] Transcribed By: [facility] 06/05/251740 Dictated By: Néstor Mays MD 06/05/251734 Signed By: 06/05/251740 [facility] Work Phone: XR foot BI 3Von 43-12-2956VE foot BI 3VCLEVELAND CLINIC [facility] [place] [address] [place] [address] XRay Report Signed Patient: Rita Cobb MR#: [id number] : 1960 Acct:[id number] Age/Sex: 64 / F ADM Date: 06/05/25 Loc: XDS Room: Type: [facility] Attending Dr: Acosta Castro DPM MS Copies to: Acosta Castro DPM, MS [...] Mays M.D. 06/05/2025 5:41 PM Dictation Location: [place] [address] Transcribed By: [facility] 06/05/25 1741 Dictated By: Néstor Masy MD 06/05/251734 Signed By: 06/05/25 174[facility] EegccTdM4m (Bld) [Mass fraction]on 20-27-5435Ahpjejszrryhwr and review of laboratory resultsAbPsychiatric hospitalLaboratory - Hematology and Cell countson 00-34-1773NmK1j (Bld) [Mass fraction]8.1 %[facility] LouisMR shoulder RT wo conon 43-05-0924ZR shoulder RT wo [facility] [place] [address] [place] [address] MRI Report Signed Patient: Rita Cobb MR#: [id number] : 1960 Acct:[id number] Age/Sex: 64 / F ADM Date: 01/23/25 Loc: [facility] Room: Type: [facility] Attending Dr: Nader Curry DO [...] Timothy Levi M.D.01/26/2025 9:38 AM Dictation Location: [place] [address] Transcribed By: [facility] 01/26/25 0938 Dictated By: Timothy Levi II, MD 01/26/25 0902 Signed By: 01/26/25 0938[facility] Physician GroupInfluenza virus B Ag [Presence] in Upper respiratory specimen by Rapid immunoassayon 80-43-7580AZKER Ag IA.rapid Ql (Nph)Influenza virus B Ag [Presence] in Upper respiratory specimen by Rapid immunoassayChildren'S Hospital For RehabilitationNo Panel Informationon 12-09-2024 Influenza Type A (Rapid)NegativeChildren'S Hospital For RehabilitationPO SARS CoV-2 AntigenNegativeChildren'S Hospital For RehabilitationNo Panel InformationOrdered By: Charan Casey on 74-18-3156MQK (POC)[facility] For RehabilitationRSV (POC) [facility] For RehabilitationX-ray reportOrdered By: Néstor Mays on 30-99-2641Deqfs reportCLEVELAND CLINIC HILLCREST [facility] Main [address] [address] XRay Report Signed Patient: Rita Cobb MR#: [id number] : 1960 Acct:[id number] Age/Sex: 64 / F ADM Date: 5 Loc: XDS Room: Type: REG CLI Attending [...] Néstor Mays M.D.12/08/2024 3:59 PM Dictation Location: [place] [address] Transcribed By: FRANKY 12/08/24 1559 Dictated By: Néstor Mays MD 12/08/24 1524 Signed By: 12/08/24 1559 [facility] Work Phone: XR chest 2V*on 84-89-2593SF chest 2V*[facility] Main [address] [address] XRay Report Signed Patient: Rita Cobb MR#: [id number] : 1960 Acct:[id number] Age/Sex: 64 / F ADM Date: 12/08/24 [facility] Type[facility] Attending Dr: Charan [...] Néstor Mays M.D.12/08/2024 3:59 PM Dictation Location: [place] [address] Transcribed By: [facility] 12/08/24 1559 Dictated By: Néstor Mays MD 12/08/24 1524 Signed By: 12/08/24 1559[facility] Physician GroupXR shoulder RT min 2V*on 82-15-1180LZ shoulder RT min 2V*[facility] [address] [place] [address] XRay Report Signed Patient: Rita Cobb MR#: [id number] : 1960 Acct:[id number] Age/Sex: 63 / F ADM Date: 10/25/24 Loc: [facility] Room: Type: [facility] Attending Dr: Nader Curry DO [...] Ibis Crisostomo M.D.10/25/2024 9:11 AM Dictation Location: [place] [address] Transcribed By: [facility] 10/25/24 09 Dictated By: Ibis Crisostomo MD 10/25/24 0908 Signed By: 10/25/24 0911[facility] Physician UokurTkK9x (Bld) [Mass fraction]on 12-82-2719Oninwrvysnjjzr and review of laboratory resultsNoGundersen St Joseph's Hospital and ClinicsLaboratory - Hematology and Cell countson 74-73-5833WfC3i (Bld) [Mass fraction]7.6 %[facility]. LouisMM screening mammo BI w/CADon 31-36-5512NL screening mammo BI w/CADCLEVELAND CLINIC HILLCREST [facility] [place] [address] [place] [address] Mammography Report Signed Patient: Rita Cobb MR#: [id number] : 1960 Acct:[id number] Age/Sex: 63 / F ADM Date: 09/07/24 Loc: [place] Room: Type: [facility] Attending Dr: Referral Self Copies to: Charan [...] next mammogram. Impression dictated by: Sudhir Brown Jr. DDerekODerek09/07/2024 9:04 AM Dictation Location: [facility] Transcribed By: FRANKY 09/07/24903 Dictated By: Sudhir Brown Jr, DO 09/07/24899 Signed By: 09/07/24903[facility] Physician GroupAlbumin [Mass/volume] in Serum or Plasma by Bromocresol green (BCG) dye binding methoOrdered By: Elpidio Whipple on 84-44-6685Ovsfugu BCG dye [Mass/Vol]4.3 g/dL3.5-5.7FSt. Charles HospitalAutomated erythrocytes count in urine sediment (number/area)Ordered By: Elpidio Whipple on 03-47-4743XDR Auto (Urine sed) [#/Area]1-2 [HPF]0-4FSt. Charles HospitalAutomated leukocytes count in urine sediment (number/area)Ordered By: Elpidio Whipple on 67-18-0103XJT Auto (Urine sed) [#/Area] 5-9 [HPF]0-4FSt. Charles HospitalBilirubin Test strip Ql (U)Ordered By: Elpidio Whipple on 96-82-8000Lduvqrxle Ql (U)NegativeNegativeChildren'S Hospital For RehabilitationCalcium [Mass/volume] in Serum or PlasmaOrdered By: Elpidio Whipple on 65-84-9536Mmumlio [Mass/Vol]9.8 mg/dL8.6-10.3FSt. Charles Hospital Carbon dioxide, total [Moles/volume] in Serum or PlasmaOrdered By: Elpidio Whipple on 22-86-3846AN0 [Moles/Vol]30.4 mmol/L21.0-31.0[facility] For RehabilitationChloride [Moles/volume] in Serum or PlasmaOrdered By: Elpidio Whippel on 61-79-9979Mbebddjj [Moles/Vol]103 mmol/T37-197JmkwvifgaChildren'S Hospital For Rehabilitation Color Auto (U)Ordered By: Elpidio Whipple on 69-20-4801Uhtwv (U)Dark yellowYellow [facility] RehabilitationCreatinine [Mass/volume] in Serum or Plasma Ordered By: Elpidio Whipple on 58-12-9635Hpexvdmyoa [Mass/Vol]1.19 mg/dL0.60-1.20 [facility] For RehabilitationCreatinine [Mass/volume] in UrineOrdered By: Elpidio Whipple on 48-41-9702Eycedkoebe (U) [Mass/Vol]101.0 mg/dLChildren'S Hospital For RehabilitationComment on above:No reference range establishedErythrocyte distribution width Auto (RBC) [Ratio]Ordered By: Elpidio Whipple on 02-29-2024 Erythrocyte distribution width (RBC) [Ratio]12.9 %11.9-15.3FSt. Charles HospitalGlucose [Mass/volume] in Serum or PlasmaOrdered By: Elpidio Whipple on 32-30-5821Zhqaxbg [Mass/Vol]164 mg/bH94-495NqdemcdsxChildren'S Hospital For Rehabilitation Comment on above:ADA recommended reference rangeRandom Glucose Reference Range is dependent on time and content of last meal. Glucose of more than 200 mg/dL in a nonstressed, ambulatory subject supports the diagnosisof Diabetes Mellitus. Hematocrit Auto (Bld) [Volume fraction]Ordered By: Elpidio Whipple on 02-29-2024 Hematocrit (Bld) [Volume fraction]39.7 %34.0-46.4FSt. Charles HospitalHemoglobin [Mass/volume] in BloodOrdered By: Elpidio Whipple on 02-29-2024 Hemoglobin (Bld) [Mass/Vol]13.4 g/dL11.8-15.4FSt. Charles Hospital Ketones Auto test strip (U) [Mass/Vol]Ordered By: Elpidio Whipple on 02-29-2024 Ketones (U) [Mass/Vol]NegativeNegativeChildren'S Hospital For Rehabilitation Laboratory - UrinalysisOrdered By: Elpidio Whipple on 86-12-7788Tbmqqzg casts LM Ql (Urine sed)0-8 [LPF]0-8[facility] For RehabilitationLeukocytes [#/volume] corrected for nucleated erythrocytes in Blood by Automated counOrdered By: Elpidio Whipple on 24-89-7020MRT corrected for nucl RBC Auto (Bld) [#/Vol]4.5 10*3/uL 3.8-11.6FSt. Charles HospitalMCH Auto (RBC) [Entitic mass]Ordered By: Elpidio Whipple on 26-86-4452MXW (RBC) [Entitic mass]29.1 pg24.7-34.3FSt. Charles HospitalMCHC Auto (RBC) [Mass/Vol]Ordered By: Elpidio Whipple on 76-54-2505LSUA (RBC) [Mass/Vol]33.8 g/dL32.0-35.0[facility] For RehabilitationMCV Auto (RBC) [Entitic vol]Ordered By: Elpidio Whipple on 06-49-1305EBA (RBC) [Entitic vol]86.2 yB28-678PewhenspxChildren'S Hospital For RehabilitationMagnesium [Mass/volume] in Serum or PlasmaOrdered By: Elpidio Whipple on 50-35-4443Faxrfaezi [Mass/Vol]1.6 mg/dL1.9-2.7FSt. Charles HospitalNitrite Test strip Ql (U)Ordered By: Elpidio Whipple on 64-63-7622Twentrl Ql (U)NegativeNegativeChildren'S Hospital For RehabilitationNo Panel InformationOrdered By: Elpidio Whipple on 82-79-0673Rdjmcsqnr GFR (CKD-EPI)51.377 mL/MinChildren'S Hospital For Rehabilitation Pharmacy Creatinine Clearance (ChemN/[facility] Parathyrin.intact [Mass/volume] in Serum or PlasmaOrdered By: Elpidio Whipple on 72-64-0731Opkdavjnwl.intact [Mass/Vol]53.1 pg/rC62-00JldnileuzChildren'S Hospital For RehabilitationPhosphate [Mass/volume] in Serum or PlasmaOrdered By: Elpidio Whipple on 72-90-5192Sfyrcgbmo [Mass/Vol]2.8 mg/dL2.5-4.5FSt. Charles Hospital Platelet mean volume Auto (Bld) [Entitic vol]Ordered By: Elpidio Whipple on 90-76-0362Qnusdrge mean volume (Bld) [Entitic vol]9.5 fL6.3-10.7FSt. Charles HospitalPlatelets Auto (Bld) [#/Vol]Ordered By: Elpidio Whipple on 13-73-5509Jilvwqtdn (Bld) [#/Vol]174 10*3/gK340-524IyzeyblexChildren'S Hospital For RehabilitationPotassium [Moles/volume] in Serum or PlasmaOrdered By: Elpidio Whipple on 95-60-2458Kyddiriyg [Moles/Vol]4.6 mmol/L3.5-5.1FSt. Charles HospitalProtein Auto test strip (U) [Mass/Vol]Ordered By: Elpidio Whipple on 73-97-1812Zesejie (U) [Mass/Vol]30 mg/dLNegativeChildren'S Hospital For RehabilitationProtein [Mass/volume] in UrineOrdered By: Elpidio Whipple on 29-25-9762Pqenhfk (U) [Mass/Vol]43 mg/dL0-9[facility] For RehabilitationRBC Auto (Bld) [#/Vol]Ordered By: Elpidio Whipple on 31-85-5771QSY (Bld) [#/Vol]4.61 10*6/uL 3.60-5.00K[facility]tering Healtherum or plasma anion gap determinationOrdered By: Elpidio Whipple on 51-57-4750Aykqw gap [Moles/Vol]11.2 mmol/L6.0-15.0Kettering Healthodium [Moles/volume] in Serum or PlasmaOrdered By: Elpidio Whipple on 86-51-9250Ulpumh [Moles/Vol]140 mmol/R096-481 Kettering Healthpecific gravity Auto test strip (U) [Rel density]Ordered By: Elpidio Whipple on 32-30-3163Ephoggrh gravity (U) [Rel density] 1.0191.001-1.030Kettering Healthquamous epithelial cells detection in urine sediment by light microscopyOrdered By: Elpidio Whipple on 05-99-1397Puhzhotqra cells.squamous LM Ql (Urine sed)10-19 [HPF]0-2FSt. Charles HospitalUrate [Mass/volume] in Serum or PlasmaOrdered By: Elpidio Whipple on 58-12-5124Ngqhz [Mass/Vol]7.1 mg/dL2.3-6.6FSt. Charles HospitalUrea nitrogen [Mass/volume] in Serum or PlasmaOrdered By: Elpidio Whipple on 89-14-6720Bblv nitrogen [Mass/Vol]29 mg/dL7-25[facility] Urine bacteria detection by automated methodOrdered By: Elpidio Whipple on 77-76-6074Cdyszqud Auto Ql (U)None seenNone SeenChildren'S Hospital For RehabilitationUrine clarity by refractometry automatedOrdered By: Elpidio Whipple on 53-23-0086Dxhmszq Refractometry automated (U)ClearClearFSt. Charles HospitalUrine culture routineOrdered By: Elpidio Whipple on 50-81-6430Jmdvahoy identified Cx Nom (U)2 DaysChildren'S Hospital For RehabilitationUrine glucose measurement by automated test strip (mass/volume)Ordered By: Elpidio Whipple on 82-39-3128Vzgfmbx Auto test strip (U) [Mass/Vol]Normal mg/dLNoSelect Medical Specialty Hospital - AkronUrine hemoglobin detection by automated test stripOrdered By: Elpidio Whipple on 86-15-1197Nzmomfwrep Auto test strip Ql (U)NegativeNegative [facility] For RehabilitationUrine leukocyte esterase detection by automated test stripOrdered By: Elpidio Whipple on 59-79-4281Rncwbxanq esterase Auto test strip Ql (U)2+NegativeChildren'S Hospital For RehabilitationUrine protein/creatinine ratioOrdered By: Elpidio Whipple on 38-29-0626Fxpkqwt/Creatinine (U) [Ratio]426 mg/g{Cre}0-200[facility] Hospital For RehabilitationUrobilinogen Auto test strip (U) [Mass/Vol]Ordered By: Elpidio Whipple on 12-99-4697Gjcywrppmxbs (U) [Mass/Vol]Normal mg/dLNoSelect Medical Specialty Hospital - AkronVitamin D+Metabolites [Mass/volume] in Serum or PlasmaOrdered By: Elpidio Whipple on 02-03-3292Gxabdnj D+Metabolites [Mass/Vol]48.0 ng/iY89-556PkvpgjbboChildren'S Hospital For RehabilitationComment on above: VITAMIN D STATUS 25(OH)VITAMIN D RANGE (ng/mL) Deficient <20 Insufficient 20 to <77Vamcdlhils87 to 100Reference: Nayeli MF,Hannah NC, Jose GILBERT, et al. Evaluation,treatment, and prevention of vitamin D deficiency; an Endocrine Society clinical practice guideline. JCEM. 2010; 96(7):1911-30.pH Auto test strip (U)Ordered By: Elpidio Whipple on 31-96-0485zV (U)5.5 [pH]5.0-9.0[facility] For RehabilitationRSVon 39-51-3720SKQ Ag IA Ql (Unsp spec)NegativeNowashington university medical center [facility] Other Alanine aminotransferase [Enzymatic activity/volume] in Serum or PlasmaOrdered By: Charan Casey on 68-04-9892WZG [Catalytic activity/Vol]16 U/L7-52[facility] Hospital For RehabilitationAlbumin [Mass/volume] in Serum or Plasma by Bromocresol green (BCG) dye binding methoOrdered By: Charan Casey on 13-00-7358Jffuqsx BCG dye [Mass/Vol]4.2 g/dL3.5-5.7FSt. Charles HospitalAlkaline phosphatase [Enzymatic activity/volume] in Serum or PlasmaOrdered By: Charan Casey on 97-38-2594ENU [Catalytic activity/Vol]65 U/L 34-104Children[facility] Hospital For RehabilitationAspartate aminotransferase [Enzymatic activity/volume] in Serum or PlasmaOrdered By: Charan Casey on 27-29-0076JWH [Catalytic activity/Vol]16 U/D58-17HvcqbteipChildren'S Hospital For Rehabilitation Bilirubin.total [Mass/volume] in Serum or PlasmaOrdered By: Charan Casey on 74-77-1710Tyxyovxrz [Mass/Vol]0.6 mg/dL0.3-1.0[facility] Calcium [Mass/volume] in Serum or PlasmaOrdered By: Charan Casey on 11-26-2023 Calcium [Mass/Vol]9.8 mg/dL8.6-10.3FSt. Charles HospitalCarbon dioxide, total [Moles/volume] in Serum or PlasmaOrdered By: Charan Casey on 60-91-5521QV3 [Moles/Vol]34.6 mmol/L21.0-31.0[facility] Chloride [Moles/volume] in Serum or PlasmaOrdered By: Charan Casey on 11-26-2023 Chloride [Moles/Vol]101 mmol/P82-892WqelbosqlChildren'S Hospital For RehabilitationCholesterol [Mass/volume] in Serum or PlasmaOrdered By: Charan Casey on 30-88-2787Ubghfarxzba [Mass/Vol]140 mg/mQ118-755HlkedexftChildren'S Hospital For RehabilitationComment on above: Chol less than 200 mg/dl low riskChol 201-239 mg/dl borderline riskChol 240 mg/dl and greater high riskCholesterol in LDL Calc [Mass/Vol]Ordered By: Charan Casey on 16-74-1607Kfayeuxiund in LDL [Mass/Vol]56 mg/dL0-100[facility] For RehabilitationComment on above:LDL ATP III CLASSIFICATIONLDL less than 100 mg/dL OptimalLDL 100-129 mg/dL Near or above ynaekwsCMU614-901 mg/dL Borderline highLDL 160-189 mg/dL HighLDL greater than 189 mg/dL Very highCholesterol in VLDL Calc [Mass/Vol]Ordered By: Charan Casey on 05-97-6310Zggbolhmtup in VLDL [Mass/Vol]45 mg/dLChildren'S Hospital For RehabilitationCreatinine [Mass/volume] in Serum or PlasmaOrdered By: Charan Casey on 04-25-3914Erjnoldpib [Mass/Vol]1.25 mg/dL0.60-1.20[facility] For RehabilitationGlobulin Calc (S) [Mass/Vol] Ordered By: Charan Casey on 25-35-0621Enmqixiw (S) [Mass/Vol]2.6 g/dLChildren'S Hospital For RehabilitationGlucose [Mass/volume] in Serum or PlasmaOrdered By: Charan Casey on 01-35-2640Fkcbcvb [Mass/Vol]122 mg/iT45-814IqstfkyryChildren'S Hospital For RehabilitationComment on above:ADA recommended reference rangeRandom Glucose Reference Range is dependent on time and content of last meal. Glucose of more than 200 mg/dL in a nonstressed, ambulatory subject supports the diagnosisof Diabetes Mellitus.No Panel InformationOrdered By: Charan Casey on 56-39-1122Ydaltzpeu GFR (CKD-EPI)48.432 mL/MinChildren'S Hospital For RehabilitationPharmacy Creatinine Clearance (ChemN/AFirelands Henry County HospitalPotassium [Moles/volume] in Serum or PlasmaOrdered By: Charan Casey on 80-11-1527Soahvvrkw [Moles/Vol]4.6 mmol/L3.5-5.1FSt. Charles HospitalProtein [Mass/volume] in Serum or PlasmaOrdered By: Charan Casey on 16-43-1127Qrbegra [Mass/Vol]6.8 g/dL6.4-8.9 [facility] Healtherum or plasma albumin/globulin mass ratio Ordered By: Charan Casey on 36-97-4804Rquupcp/Globulin [Mass ratio]1.6 {ratio} [facility] Healtherum or plasma anion gap determinationOrdered By: Charan Casey on 26-66-3017Wbvbm gap [Moles/Vol]9.0 mmol/L6.0-15.0[facility] Healtherum or plasma high density lipoprotein (HDL) cholesterol measurementOrdered By: Charan Casey on 16-97-0460Zdpoktsptzu in HDL [Mass/Vol]39 mg/mM51-94AiqusugtwChildren'S Hospital For RehabilitationComment on above:HDL CHOL ATP-III CLASSIFICATION Cardiovascular RiskHDL > or equal to 60 mg/dL LOWHDL < 40 mg/dL HIGHSerum or plasma total cholesterol/high density lipoprotein (HDL) cholesterol mass ratOrdered By: Charan Casey on 11-26-2023 Cholesterol.total/Cholesterol in HDL [Mass ratio]3.6 {ratio}<5.0K[facility]tering Healthodium [Moles/volume] in Serum or PlasmaOrdered By: Charan Casey on 22-98-7273Vyfdql [Moles/Vol]140 mmol/E285-869BevizllhmChildren'S Hospital For RehabilitationTriglyceride [Mass/volume] in Serum or PlasmaOrdered By: Charan Casey on 27-21-7651Ztrzijdvugmn [Mass/Vol]227 mg/dL0-149[facility] Comment on above:TRIG ATP III CLASSIFICATIONTRIG less than 150 mg/dL NormalTRIG 150-199 mg/dL Borderline highTRIG 200-500 mg/dL High TRIG greater than 500 mg/dL Very highStandard traceable to the Center for Disease Conrtrol and Prevention (CDC) test method.Urea nitrogen [Mass/volume] in Serum or PlasmaOrdered By: Charan Casey on 44-27-8438Oezb nitrogen [Mass/Vol]32 mg/dL7Children[facility] Hospital For RehabilitationGlucose Glucometer (BldC) [Mass/Vol]Ordered By: Yasmeen Treadwell on 86-46-5013Bkdmxwb [Mass/Vol]150 mg/dLChildren'S Hospital For RehabilitationComment on above:Random Glucose Reference Range is dependent on time and content of last meal. Glucose of more than 200 mg/dL in a nonstressed, ambulatory subject supports the diagnosis of Diabetes Mellitus.Albumin [Mass/volume] in Serum or Plasma by Bromocresol green (BCG) dye binding methoOrdered By: Elpidio Whipple on 48-26-4782Fdepike BCG dye [Mass/Vol]4.5 g/dL3.5-5.7FSt. Charles HospitalAutomated erythrocytes count in urine sediment (number/area)Ordered By: Elpidoi Whipple on 00-78-0488BIO Auto (Urine sed) [#/Area]None seen [HPF]0-4 [facility] RehabilitationAutomated leukocytes count in urine sediment (number/area)Ordered By: Elpidio Whipple on 13-88-2370TLX Auto (Urine sed) [#/Area] 1-2 [HPF]0-4FSt. Charles HospitalBilirubin Test strip Ql (U)Ordered By: Elpidio Whipple on 17-22-1795Hbecvkijk Ql (U)NegativeNegativeChildren'S Hospital For RehabilitationCalcium [Mass/volume] in Serum or PlasmaOrdered By: Elpidio Whipple on 97-90-3921Pmpwwrn [Mass/Vol]9.5 mg/dL8.6-10.3FSt. Charles Hospital Carbon dioxide, total [Moles/volume] in Serum or PlasmaOrdered By: Elpidio Whipple on 99-04-4666QV5 [Moles/Vol]29.7 mmol/L21.0-31.0[facility] For RehabilitationChloride [Moles/volume] in Serum or PlasmaOrdered By: Elpidio Whipple on 55-53-9684Nxxgouxc [Moles/Vol]106 mmol/F08-269XumluuvviChildren'S Hospital For Rehabilitation Color Auto (U)Ordered By: Elpidio Whipple on 14-08-9581Dlkng (U)Dark yellowYellow [facility] For RehabilitationCreatinine [Mass/volume] in Serum or Plasma Ordered By: Elpidio Whipple on 39-15-4878Fffylzygzk [Mass/Vol]1.29 mg/dL0.60-1.20 [facility] For RehabilitationCreatinine [Mass/volume] in UrineOrdered By: Elpidio Whipple on 91-95-3376Beazrlcdfu (U) [Mass/Vol]87.0 mg/dL11.0-20.0[facility] Hospital For RehabilitationErythrocyte distribution width Auto (RBC) [Ratio]Ordered By: Elpidio Whipple on 90-63-7995Pgtdeziyrbl distribution width (RBC) [Ratio]13.5 % 11.9-15.3FSt. Charles HospitalGlucose [Mass/volume] in Serum or PlasmaOrdered By: Elpidio Whipple on 64-45-4480Vuchfxh [Mass/Vol]97 mg/bM08-706 [facility] For RehabilitationComment on above:ADA recommended reference rangeRandom Glucose Reference Range is dependent on time and content of last meal. Glucose of more than 200 mg/dL in a nonstressed, ambulatory subject supports the diagnosisof Diabetes Mellitus.Hematocrit Auto (Bld) [Volume fraction]Ordered By: Elpidio Whipple on 08-52-9240Btktalqpuw (Bld) [Volume fraction] 42.7 %34.0-46.4FSt. Charles HospitalHemoglobin [Mass/volume] in BloodOrdered By: Elpidio Whipple on 07-08-2398Bwbrpecdzv (Bld) [Mass/Vol]14.3 g/dL 11.8-15.4FSt. Charles HospitalKetones Auto test strip (U) [Mass/Vol] Ordered By: Elpidio Whipple on 98-80-6693Ajjqngd (U) [Mass/Vol]NegativeNegative [facility] RehabilitationLaboratory - UrinalysisOrdered By: Elpidio Whipple on 30-06-8248Rtnbnek casts LM Ql (Urine sed)0-8 [LPF]0-8[facility] For RehabilitationLeukocytes [#/volume] corrected for nucleated erythrocytes in Blood by Automated counOrdered By: Elpidio Whipple on 12-27-7877EEM corrected for nucl RBC Auto (Bld) [#/Vol]7.7 10*3/uL3.8-11.6FSt. Charles Hospital MCH Auto (RBC) [Entitic mass]Ordered By: Elpidio Whipple on 17-22-7151FPM (RBC) [Entitic mass]29.1 pg24.7-34.3FSt. Charles HospitalMCHC Auto (RBC) [Mass/Vol]Ordered By: Elpidio Whipple on 32-21-4927RGCR (RBC) [Mass/Vol]33.6 g/dL 32.0-35.0[facility] For RehabilitationMCV Auto (RBC) [Entitic vol]Ordered By: Elpidio Whipple on 96-28-9290KKY (RBC) [Entitic vol]86.5 iW67-025UkjjbzqjvChildren'S Hospital For RehabilitationMagnesium [Mass/volume] in Serum or PlasmaOrdered By: Elpidio Whipple on 60-79-0799Mbtthyijj [Mass/Vol]1.9 mg/dL1.9-2.7FSt. Charles HospitalNitrite Test strip Ql (U)Ordered By: Elpidio Whipple on 09-14-2023 Nitrite Ql (U)NegativeNegativeChildren'S Hospital For RehabilitationNo Panel InformationOrdered By: Elpidio Whipple on 07-54-0527Qohktaljw GFR (CKD-EPI)46.926 mL/MinChildren'S Hospital For RehabilitationPharmacy Creatinine Clearance (ChemN/A [facility] For RehabilitationParathyrin.intact [Mass/volume] in Serum or PlasmaOrdered By: Elpidio Whipple on 85-12-9489Dgchyhstch.intact [Mass/Vol]133.6 pg/cZ12-19IwqjeiloqChildren'S Hospital For RehabilitationPhosphate [Mass/volume] in Serum or PlasmaOrdered By: Elpidio Whipple on 46-91-8608Mnqgoowmi [Mass/Vol]3.4 mg/dL3.7-7.2 [facility] For RehabilitationPlatelet mean volume Auto (Bld) [Entitic vol] Ordered By: Elpidio Whipple on 47-25-4839Usyhucca mean volume (Bld) [Entitic vol] 10.0 fL6.3-10.7FSt. Charles HospitalPlatelets Auto (Bld) [#/Vol] Ordered By: Elpidio Zarater on 37-82-2666Fwvmplols (Bld) [#/Vol]193 10*3/yU285-695 [facility] For RehabilitationPotassium [Moles/volume] in Serum or Plasma Ordered By: Elpidio Sole on 02-01-4239Grscjliet [Moles/Vol]4.7 mmol/L3.5-5.1 [facility] For RehabilitationProtein Auto test strip (U) [Mass/Vol]Ordered By: Elpidio Sole on 98-48-0145Awbuvjh (U) [Mass/Vol]NegativeNegativeChildren'S Hospital For RehabilitationProtein [Mass/volume] in UrineOrdered By: Elpidio Sole on 15-17-7786Xchqrdn (U) [Mass/Vol]12 mg/dL0-9[facility] For RehabilitationRBC Auto (Bld) [#/Vol]Ordered By: Elpidio Silvadir on 11-64-3005APQ (Bld) [#/Vol]4.93 10*6/uL3.60-5.00[facility]tering Healtherum or plasma anion gap determinationOrdered By: Elpidio Sole on 28-81-3038Ysvjg gap [Moles/Vol]11.0 mmol/L6.0-15.0K[facility]tering Healthodium [Moles/volume] in Serum or PlasmaOrdered By: Elpidio Sole on 44-95-1441Eykvob [Moles/Vol]142 mmol/G700-096 [facility] Healthpecific gravity Auto test strip (U) [Rel density]Ordered By: Elpidio Sole on 39-20-7096Iqbbntun gravity (U) [Rel density] 1.0201.001-1.030Kettering Healthquamous epithelial cells detection in urine sediment by light microscopyOrdered By: Elpidio Zarater on 43-00-1327Ddxmbkudlz cells.squamous LM Ql (Urine sed)3-4 [HPF]0-2FSt. Charles HospitalUrate [Mass/volume] in Serum or PlasmaOrdered By: Elpidio Sole on 12-87-2321Favap [Mass/Vol]6.2 mg/dL2.3-6.6FSt. Charles HospitalUrea nitrogen [Mass/volume] in Serum or PlasmaOrdered By: Elpidio Whipple on 89-78-9447Klvv nitrogen [Mass/Vol]46 mg/dL7-25[facility] Urine bacteria detection by automated methodOrdered By: Elpidio Whipple on 16-76-9770Euzyatol Auto Ql (U)None seenNone SeenChildren'S Hospital For RehabilitationUrine clarity by refractometry automatedOrdered By: Elpidio Whipple on 57-13-2762Almpukj Refractometry automated (U)ClearClearFSt. Charles HospitalUrine glucose measurement by automated test strip (mass/volume) Ordered By: Elpidio Whipple on 21-16-4290Smwfsqs Auto test strip (U) [Mass/Vol] Normal mg/dLCleveland Clinic Mercy HospitalUrine hemoglobin detection by automated test stripOrdered By: Elpidio Whipple on 65-74-4232Fikolimijm Auto test strip Ql (U)NegativeNegativeChildren'S Hospital For RehabilitationUrine leukocyte esterase detection by automated test stripOrdered By: Elpidio Whipple on 09-14-2023 Leukocyte esterase Auto test strip Ql (U)1+NegativeChildren'S Hospital For RehabilitationUrine protein/creatinine ratioOrdered By: Elpidio Sole on 09-14-2023 Protein/Creatinine (U) [Ratio]138 mg/g{Cre}0-200[facility] For RehabilitationUrobilinogen Auto test strip (U) [Mass/Vol]Ordered By: Elpidio Whipple on 67-81-5389Veoaiufciico (U) [Mass/Vol]Normal mg/dLNoSelect Medical Specialty Hospital - AkronVitamin D+Metabolites [Mass/volume] in Serum or PlasmaOrdered By: Elpidio Whipple on 64-49-4372Ljedibs D+Metabolites [Mass/Vol]50.6 ng/fZ53-991 [facility] For RehabilitationComment on above:VITAMIN D STATUS 25(OH)VITAMIN D RANGE (ng/mL) Deficient <20 Insufficient 20 to <00Hcirhmsutx41 to 100Reference: Nayeli MF,Hannah NC, Jose GILBERT, et al. Evaluation,treatment, and prevention of vitamin D deficiency; an Endocrine Society clinical practice guideline. JCEM. 2011 Jorge; 96(7):1911-30.pH Auto test strip (U)Ordered By: Elpidio Whipple on 35-41-5834pI (U)5.5 [pH]5.0-9.0[facility] For RehabilitationUrine 10 SGon 63-12-5977Mtnqnnw DL <= 20 mg/L (U) [Mass/Vol]NegativeMagnolia [facility] Other pH (U)6.0 [pH][facility] Other urine 10 SGNegativeNowashington university [facility] Other urine 10 SG1.010Now[facility] Other urine 10 SG0.2Ndoctors [facility] Other Height or Weight NOT Doneon 71-46-8497Muamz depression screening assessmentNoProvidence [facility] [employer] DO Work Phone: Fall risk assessmenta) No falls within the last year [facility] [employer] DO Work Phone: Tobacco use status CPHSb) NoMWestern State Hospital [employer] DO Work Phone: Office Visit (Cardiology)on 91-04-2948Rvuimd-up visit Diagnoses/Problems Assessed CAD (coronary artery disease) [...] any trouble since her angioplasty. She has Cuozuih-Tbaoi-Iwltx disease and had recent surgery on the [...] machine patient has been compliant with it. 7?Tjkobsb-Tzbri-Ojlzk joint in the ankles status post recent [...] TABLET DAILY. Vitamin D (Ergocalciferol) 1.25 MG (18272 UT) Oral CapsuleTake 1 tablet twice weekly Allergies Medication Erythromycin Base TABS Adverse Reaction; Gatrointestinal upset; Updated By: Adrianna Emanuel; (more content not included)...NormalUH [facility] Beaver DamPOINT OF CARE GLUCOSEon 04-13-2023 Glucose [Mass/Vol]215 mg/dLCritically fdrq23-169Nnk [facility] CampusComment on above:Performed By: #### POCGLUC ####[facility] Cnktlz[address] StreetBellevue, [place] [address]Hh. Yilan ChangPROF CHEM 8 (BAS METB)on 03-31-2023 Anion gap [Moles/Vol]9.6 mmol/LNormalThe St. [facility] CampusComment on above: Performed By: #### BMP ####[facility] [address] [id number].Yilan ChangCalcium [Mass/Vol]10.3 mg/dLCritically high8.5-10.1The [facility] CampusComment on above:Performed By: #### BMP ####[facility] [address] [place], [place] [address]Dr. Yilan ChangChloride [Moles/Vol]103 mmol/MZnzkxj66-178Wnq [facility] Comment on above:Performed By: #### BMP ####[facility] [address]qul[address] [place], [place] [address]Dr.Yilan ChangCO2 [Moles/Vol]31.0 mmol/L Msvlrx49.0-32.0The St[facility] CampusComment on above:Performed By: #### BMP ####[facility] Qsacbqyfam[address] [place], [place] [address]Dr. Yilan ChangCreatinine [Mass/Vol]1.48 mg/dLCritically high0.55-1.02The [facility] CampusComment on above:Performed By: #### BMP ####[facility] [address] [place], [place] [address]Dr.Yilan ChangEGFR-AF MONRCUSE90 mL/min/1.24l5Qxnhktqfhe low>=60The St[facility]ont[facility] CampusComment on above: Performed By: #### BMP ####[facility] [address] [id number].Yilan ChangEGFR-NON AF JCGCKQCJ39 mL/min/1.73m2 Critically low>=60The [facility] CampusComment on above:Performed By: #### BMP ####[facility] [address] [place], [place] [address]Dr. Yilan ChangGlucose [Mass/Vol]173 mg/dLCritically srqo07-244Gnv [facility] Comment on above:Performed By: #### BMP ####[facility] [address] [place], [place] [address]Rr.Yilan ChangPotassium [Moles/Vol]4.6 mmol/LNormal3.5-5.1The [facility] CampusComment on above:Performed By: #### BMP ####[facility] [address] [place], [place] [address]Vn. Yilan ChangSodium [Moles/Vol]139 mmol/KIhbwzj165-444Otf [facility] CampusComment on above:Performed By: #### BMP ####[facility] [address] [place], [place] [address]Ua.Yilan ChangUrea nitrogen [Mass/Vol]63.0 mg/dL Critically high7.0-18.0The [facility] CampusComment on above:Performed By: #### BMP ####[facility] [address] [place], [place] [address]Sj. Yilan ChangUrea nitrogen/Creatinine [Mass ratio]42.6 mg/mgNormalThe St. [facility] CampusComment on above:Performed By: #### BMP ####[facility] [address] [place], [place] [address]Ji.Yilan ChangCT FOOT LT WO CONon 17-47-9376YI FOOT LT WO CONEXAMINATION: CT FOOT LT [...] Electronically authenticated by: BLANKA OLGUIN Date: 2023-03-23 14:59[facility] HospitalAlbumin [Mass/volume] in Serum or Plasma by Bromocresol green (BCG) dye binding methoOrdered By: Elpidio Whipple on 29-84-5165Ewbaclw BCG dye [Mass/Vol]4.7 g/dL3.5-5.7FSt. Charles HospitalAutomated erythrocytes count in urine sediment (number/area)Ordered By: Elpidio Whipple on 10-12-7838UNL Auto (Urine sed) [#/Area]None seen [HPF]0-4FSt. Charles Hospital Automated leukocytes count in urine sediment (number/area)Ordered By: Elpidio Whipple on 87-89-7435BPU Auto (Urine sed) [#/Area]5-9 [HPF]0-4FSt. Charles HospitalBilirubin Test strip Ql (U)Ordered By: Elpidio Whipple on 03-06-2023 Bilirubin Ql (U)NegativeNegativeChildren'S Hospital For RehabilitationCalcium [Mass/volume] in Serum or PlasmaOrdered By: Elpidio Whipple on 27-89-7368Iezyewy [Mass/Vol]10.2 mg/dL8.6-10.3FSt. Charles HospitalCarbon dioxide, total [Moles/volume] in Serum or PlasmaOrdered By: Elpidio Whipple on 01-30-0200SJ0 [Moles/Vol]28.4 mmol/L21.0-31.0[facility] For RehabilitationChloride [Moles/volume] in Serum or PlasmaOrdered By: Elpidio Whipple on 64-63-8362Kgcjdecd [Moles/Vol]104 mmol/L59-306HswbpggcqChildren'S Hospital For RehabilitationColor Auto (U) Ordered By: Elpidio Whipple on 01-22-5948Wbwqg (U)Dark yellowYellowChildren'S Hospital For RehabilitationCreatinine [Mass/volume] in Serum or PlasmaOrdered By: Elpidio Whipple on 31-65-4835Hczaujrcbo [Mass/Vol]1.22 mg/dL0.60-1.20[facility] For RehabilitationCreatinine [Mass/volume] in UrineOrdered By: Elpidio Whipple on 49-65-8567Qyyycsbswc (U) [Mass/Vol]98.0 mg/dLChildren'S Hospital For RehabilitationComment on above:No reference range establishedErythrocyte distribution width Auto (RBC) [Ratio]Ordered By: Elpidio Whipple on 27-16-8829Ecgotwvlwul distribution width (RBC) [Ratio]13.8 %11.9-15.3FSt. Charles Hospital Glucose [Mass/volume] in Serum or PlasmaOrdered By: Elpidio Whipple on 03-06-2023 Glucose [Mass/Vol]101 mg/hS45-856PkhlisrcfChildren'S Hospital For RehabilitationComment on above:ADA recommended reference rangeRandom Glucose Reference Range is dependent on time and content of last meal. Glucose of more than 200 mg/dL in a nonstressed, ambulatory subject supports the diagnosisof Diabetes Mellitus. Hematocrit Auto (Bld) [Volume fraction]Ordered By: Elpidio Whipple on 03-06-2023 Hematocrit (Bld) [Volume fraction]38.1 %34.0-46.4FSt. Charles HospitalHemoglobin [Mass/volume] in BloodOrdered By: Elpidio Whipple on 03-06-2023 Hemoglobin (Bld) [Mass/Vol]12.7 g/dL11.8-15.4FSt. Charles Hospital Ketones Auto test strip (U) [Mass/Vol]Ordered By: Elpidio Whipple on 03-06-2023 Ketones (U) [Mass/Vol]NegativeNegativeChildren'S Hospital For Rehabilitation Laboratory - UrinalysisOrdered By: Elpidio Whipple on 03-91-0983Gzrgzsb casts LM Ql (Urine sed)0-8 [LPF]0-8[facility] For RehabilitationLeukocytes [#/volume] corrected for nucleated erythrocytes in Blood by Automated counOrdered By: Elpidio Whipple on 10-24-7942OSU corrected for nucl RBC Auto (Bld) [#/Vol]5.4 10*3/uL 3.8-11.6FSt. Charles HospitalMCH Auto (RBC) [Entitic mass]Ordered By: Elpidio Whipple on 01-62-5324YNI (RBC) [Entitic mass]28.1 pg24.7-34.3FSt. Charles HospitalMCHC Auto (RBC) [Mass/Vol]Ordered By: Elpidio Whipple on 18-78-6461FNUI (RBC) [Mass/Vol]33.3 g/dL32.0-35.0[facility] For RehabilitationMCV Auto (RBC) [Entitic vol]Ordered By: Elpidio Whipple on 51-42-3920EET (RBC) [Entitic vol]84.5 eS00-888AuariusmkChildren'S Hospital For RehabilitationMagnesium [Mass/volume] in Serum or PlasmaOrdered By: Elpidio Whipple on 03-28-1006Vfrxprznm [Mass/Vol]1.5 mg/dL1.9-2.7FSt. Charles HospitalNitrite Test strip Ql (U)Ordered By: Elpidio Whipple on 39-88-7335Vsgeeiq Ql (U)NegativeNegativeChildren'S Hospital For RehabilitationNo Panel InformationOrdered By: Elpidio Whipple on 97-70-1524Ybifrrlnb GFR (CKD-EPI)50.176 mL/MinChildren'S Hospital For Rehabilitation Pharmacy Creatinine Clearance (ChemN/[facility] Parathyrin.intact [Mass/volume] in Serum or PlasmaOrdered By: Elpidio Whipple on 50-65-9025Bbdhnneogd.intact [Mass/Vol]43.8 pg/hE69-23VwoqxxydeChildren'S Hospital For RehabilitationPhosphate [Mass/volume] in Serum or PlasmaOrdered By: Elpidio Whipple on 58-40-8628Tdvnnphwm [Mass/Vol]4.3 mg/dL3.7-7.2FSt. Charles Hospital Platelet mean volume Auto (Bld) [Entitic vol]Ordered By: Elpidio Whipple on 83-14-5041Qjlexkep mean volume (Bld) [Entitic vol]8.7 fL6.3-10.7FSt. Charles HospitalPlatelets Auto (Bld) [#/Vol]Ordered By: Elpidio Whipple on 77-79-2503Ewuqjwojk (Bld) [#/Vol]191 10*3/fS828-159KlhxtahusChildren'S Hospital For RehabilitationPotassium [Moles/volume] in Serum or PlasmaOrdered By: Elpidio Whipple on 82-86-1588Gikqgpxhe [Moles/Vol]4.0 mmol/L3.5-5.1FSt. Charles HospitalProtein Auto test strip (U) [Mass/Vol]Ordered By: Elpidio Whipple on 55-27-9617Kgceaga (U) [Mass/Vol]NegativeNegativeChildren'S Hospital For RehabilitationProtein [Mass/volume] in UrineOrdered By: Elpidio Whipple on 28-67-7717Cjboaqx (U) [Mass/Vol]8 mg/dL0-9[facility] For RehabilitationRBC Auto (Bld) [#/Vol] Ordered By: Elpidio Whipple on 34-25-3978VGQ (Bld) [#/Vol]4.51 10*6/uL3.60-5.00 [facility] Healtherum or plasma anion gap determinationOrdered By: Elpidio Whipple on 23-72-0304Shdud gap [Moles/Vol]12.6 mmol/L6.0-15.0K[facility]tering Healthodium [Moles/volume] in Serum or PlasmaOrdered By: Elpidio Whipple on 64-37-4810Furxuw [Moles/Vol]141 mmol/Z700-557AllwlxyszKettering Healthpecific gravity Auto test strip (U) [Rel density]Ordered By: Elpidio Whipple on 36-96-4558Nwvrfhyy gravity (U) [Rel density]1.0171.001-1.030 [facility]tering Healthquamous epithelial cells detection in urine sediment by light microscopyOrdered By: Elpidio Whipple on 67-59-0038Ocobqpthux cells.squamous LM Ql (Urine sed)5-9 [HPF]0-2FSt. Charles Hospital Urate [Mass/volume] in Serum or PlasmaOrdered By: Elpidio Whipple on 27-47-8060Qapml [Mass/Vol]6.7 mg/dL2.3-6.6FSt. Charles HospitalUrea nitrogen [Mass/volume] in Serum or PlasmaOrdered By: Elpidio Whipple on 00-20-8415Pssy nitrogen [Mass/Vol]37 mg/dL7-25[facility] For RehabilitationUrine bacteria detection by automated methodOrdered By: Elpidio Silvadir on 87-42-7618Szbfmgtk Auto Ql (U)None seenNone SeenChildren'S Hospital For RehabilitationUrine clarity by refractometry automatedOrdered By: Elpidio Sole on 58-13-9125Smderhq Refractometry automated (U)ClearClearFSt. Charles HospitalUrine culture routineOrdered By: Elpidio Silvadir on 99-07-1872Mczhzvya identified Cx Nom (U)2 DaysChildren'S Hospital For RehabilitationUrine glucose measurement by automated test strip (mass/volume)Ordered By: Elpidio Silvadir on 85-01-1016Muucsmi Auto test strip (U) [Mass/Vol]Normal mg/dLNoSelect Medical Specialty Hospital - AkronUrine hemoglobin detection by automated test stripOrdered By: Elpidio Silvadir on 69-57-1845Oncrlchfzj Auto test strip Ql (U)NegativeNegativeChildren'S Hospital For RehabilitationUrine leukocyte esterase detection by automated test stripOrdered By: Elpidio Silvadir on 41-46-7069Fqfjgbnip esterase Auto test strip Ql (U)2+Negative [facility] For RehabilitationUrine protein/creatinine ratioOrdered By: Elpidio Sole on 49-21-5621Swllikd/Creatinine (U) [Ratio]82 mg/g{Cre}0-200[facility] Hospital For RehabilitationUrobilinogen Auto test strip (U) [Mass/Vol]Ordered By: Elpidio Sole on 04-85-5728Vduvfdnagdmp (U) [Mass/Vol]Normal mg/dLNoSelect Medical Specialty Hospital - AkronVitamin D+Metabolites [Mass/volume] in Serum or Plasma Ordered By: Elpidio Sole on 88-28-6274Hqvycuo D+Metabolites [Mass/Vol]46.0 ng/mL 30-100[facility] For RehabilitationComment on above:VITAMIN D STATUS 25(OH)VITAMIN D RANGE (ng/mL) Deficient <20 Insufficient 20 to <45Rujmofhcjb05 to 100Reference: Nayeli MF,Hannah NC, Jose GILBERT, et al. Evaluation,treatment, and prevention of vitamin D deficiency; an Endocrine Society clinical practice guideline. JCEM. 2010; 96(7):1911-30.pH Auto test strip (U)Ordered By: Elpidio Whipple on 86-55-1793sQ (U)5.5 [pH]5.0-9.0[facility] For RehabilitationXR FOOT LAURA MIN 3 VIEWSon 09-17-3596ZC FOOT LAURA MIN 3 VIEWSEXAMINATION: XR FOOT [...] Electronically authenticated by: BRODERICK FLOR Date: 2023-02-17 14:34NormalThLima City HospitalCB AUTO DIFFon 14-26-7947XRGY #0.0 103/ulNormal0.0-0.1[facility] Mentor HospitalComment on above:Performed By: #### CBC #### [facility] [address] [address] [address] Tere Naranjosophils/100 WBC (Bld)0.6 %Normal0.2-2.0[facility] Comment on above:Performed By: #### CBC #### [facility] [address] [address] [address] Tere Barksdale #0.1 103/ulNormal0.0-0.7The St[facility] CampusComment on above: Performed By: #### CBC #### [facility] [address] [address] [address] Tere Mendezosinophils/100 WBC (Bld)2.9 %Normal0.9-7.0The [facility] Comment on above:Performed By: #### CBC #### [facility] [address] [place] [address] Dr. Tere Mendezrythrocyte distribution width (RBC) [Ratio]13.2 %Iuzpaz40.0-15.[address] [facility] CampusComment on above:Performed By: #### CBC #### [facility] [address] [place] [address] Dr. Tere SotoHematocrit (Bld) [Volume fraction]39.0 %Twihgk75.0-48.0The [facility] CampusComment on above:Performed By: #### CBC #### [facility] [address] [place] [address] Dr. Tere SotoHemoglobin (Bld) [Mass/Vol]13.0 g/jKHuwpru73.0-16.0The [facility]an Private Hospitalment on above:Performed By: #### CBC #### [facility] [address] [place] [address] Dr. Tere Carolina #0.01 10e3/ulNormal0.00-0.03The [facility] Private Hospitalment on above:Performed By: #### CBC #### [facility] [address] [place] [address] Dr. Tere Carolina %0.2 %Normal0.0-0.5The [facility] Private Hospitalment on above: Performed By: #### CBC #### [facility] [address] [place] [address] Dr. Tere Salguero #2.1 103/ulNormal1.2-3.8The [facility] on above:Performed By: #### CBC #### [facility] [address] [place] [address] Dr. Tere Escamillamphocytes/100 WBC (Bld)42.6 %Crvsgm74.5-60.0The [facility] HospitalComment on above:Performed By: #### CBC #### [facility] [address] [address] [address] Tere Mayfield DIFF REQNONormalThe St. [facility] CampusComment on above: Performed By: #### CBC #### [facility] [address] [address] [address] Tere Lomeli (RBC) [Entitic mass]28.[address] dkOiqpqo88.7-34.0The [facility] CampusComment on above:Performed By: #### CBC #### [facility] [address] [place] [address] Dr. Tere Lomeli (RBC) [Mass/Vol]33.3 g/qVArhnsx81.9-35.2The [facility] CampusComment on above:Performed By: #### CBC #### [facility] [address] [place] [address] Dr. Tere Lomeli (RBC) [Entitic vol]85.2 hJRomenx10.0-99.0The [facility] CampusComment on above:Performed By: #### CBC #### [facility] [address] [place] [address] Dr. Tere Tsai #0.3 103/ulNormal0.3-0.8The [facility] CampusComment on above:Performed By: #### CBC #### [facility] [address] [place] [address] Dr. Tere Hillocytes/100 WBC (Bld)6.8 %Normal1.7-12.0The [facility] Comment on above:Performed By: #### CBC #### [facility] [address] [address] [address] Tere Green #2.3 103/ulNormal1.4-6.5The [facility] CampusComment on above:Performed By: #### CBC #### [facility] [address] [place] [address] Dr. Tere Velezutrophils/100 WBC (Bld)46.9 %Ttectu68.0-75.0The [facility] CampusComment on above:Performed By: #### CBC #### [facility] [address] [address] [address] Tere Hernandezlet mean volume (Bld) [Entitic vol]11.3 fLNormal9.5-13.5The [facility] CampusComment on above:Performed By: #### CBC #### [facility] [address] [place] [address] Dr. Tere SotoPLT183 103/ouJkdytm715-038Crr [facility] CampusComment on above: Performed By: #### CBC #### [facility] [address] [place] [address] Dr. Tere SotoRBC4.58 106/ulNormal4.20-5.40The [facility] CampusComcorewell health butterworth hospital on above:Performed By: #### CBC #### [facility] [address] [place] [address] Dr. Tere SotoWBC4.8 103/ulNormal4.0-11.0The [facility] CampusComment on above: Performed By: #### CBC #### [facility] [address] [place] [address] Dr. Tere SotoCovisonia-19 PCR ([facility]VDP[facility])on 23-83-5218RYOL-CoV-2 (COVID-19) RNA AHMET+probe Ql (Unsp spec)Not detectedNormalNOT DETECTEDThe St[facility] Comment on above:Result Comment: This test is not yet approved or cleared by the [place] FDA. When there are no FDA-approved or cleared tests available, and other criteria are met, FDA can make tests available under an emergency access mechanism called an Emergency Use Authorization (EUA). The EUA for this test is supported by the Final Inspector [employer] of Health and Human Service's (HHS's) declaration [...] consistent with SARS-CoV-2.Performed By: #### CVDTBH #### [facility] [address] [place] [address] Dr. Tere SotoPROF CHEM 8 (BAS METB)on 38-31-9818Gdfaj gap [Moles/Vol]13.6 mmol/LNormalThe St. [facility] Ironton CampusComment on above:Performed By: #### BMP #### [facility] [address] [place] [address] Dr. Tere SotoCalcium [Mass/Vol]9.6 mg/dLNormal8.5-10.1The [facility] Comment on above:Performed By: #### BMP #### [facility] [address] [place] [address] Dr. Tere SotoChloride [Moles/Vol]103 mmol/DQjuofl16-891Ikg [facility] Comment on above:Performed By: #### BMP #### [facility] [address] [place] [address] Dr. Tere SotoCO2 [Moles/Vol]28.9 mmol/PYdmmlz85.0-32.0[facility] Comment on above:Performed By: #### BMP #### [facility] [address] [place] [address] Dr. Tere SotoCreatinine [Mass/Vol]1.25 mg/dLCritically high0.55-1.02The [facility] CampusComment on above:Performed By: #### BMP #### [facility] [address] [place] [address] Dr. Tere MendezGFR-AF SZBINLYP83 mL/min/1.36o0Kgqlabsfkk low>=60The [facility] CampusComment on above:Performed By: #### BMP #### [facility] [address] [place] [address] Dr. Tere MendezGFR-NON AF JQLOAZDO49 mL/min/1.00z6Hzakphjhkb low>=60The [facility] CampusComment on above:Performed By: #### BMP #### [facility] [address] [address] [address] Tere SotoGlucose [Mass/Vol]121 mg/dLCritically rrzc58-243[facility] on above:Performed By: #### BMP #### [facility] [address] [address] [address] Tere SotoPotassium [Moles/Vol]4.5 mmol/LNormal3.5-5.1[facility] Comment on above:Performed By: #### BMP #### [facility] [address] [address] [address] Tere SotoSodium [Moles/Vol]141 mmol/YBqhuyv889-786Upv [facility] Comment on above:Performed By: #### BMP #### [facility] [address] [address] [address] Tere SotoUrea nitrogen [Mass/Vol]43.0 mg/dLCritically high7.0-18.0[facility] on above:Performed By: #### BMP #### [facility] [address] [address] [address] Tere Cox nitrogen/Creatinine [Mass ratio]34.4 mg/mgNoSuburban Community Hospital & Brentwood HospitalComment on above:Performed By: #### BMP #### [facility] [address] [address] [address] Tere SotoPROTIMEmarisela 08-04-0731SFV Coag (PPP) [Relative time]{INR}NormalThe [facility] on above:Performed By: #### PT, PTT ####[facility] [address] [address]Dr. Tere Seaman GUIDELINESSEE [facility] HospitalComcorewell health [facility] on above:Result Comment: DESIRED INR: 2.0 - 3.0 CONDITIONS NOT LISTED BELOW 2.5 - 3.5 FOR PROSTHETIC HEART VALVE REPLACEMENT 2.5 - 3.5 RECURRENT THROMBOSISPerformed By: #### PT, PTT ####[facility] [address] [id number]. Tere SotoPT Coag (PPP) [Time]9.8 sNormal9.0-11.6The [facility] CampusComment on above:Performed By: #### PT, PTT ####[facility] [address] [place], [place] [address]Kp. Tere SotoPTTon 11-21-7057xAHH Coag (Bld) [Time]26.5 zKuxtpe87.3-36.2[facility] HospitalComment on above:Performed By: #### PT, PTT ####[facility] [address] [place], [place] [address]Iy. Tere SotoCT FOOT LT WO CONon 78-51-0145KL FOOT LT WO CONEXAMINATION: CT FOOT LT [...] Electronically authenticated by: BRODERICK FLOR Date: 2022-11-26 16:36NoSuburban Community Hospital & Brentwood HospitalXR ANKLE LAURA MIN 3 VIEWSon 33-60-4220JM ANKLE LAURA MIN 3 VIEWS EXAMINATION: XR [...] Electronically authenticated by: BLANKA OLGUIN Date: 2022-11-13 06:[address] [place] [address] Visit (Cardiology)on 42-67-5490Hyccvd-up visit Diagnoses/Problems Assessed CAD (coronary artery disease) (414.00) (I25.10) Essential hypertension (401.9) (I10) Hyperlipidemia (272.4) (E78.5) 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 (V45.82) (Z95.5) LAD February 2022 Diabetes mellitus (250.00) (E11.9) Obstructive sleep apnea syndrome (327.23) (G47.33) Never a smoker Class 2 obesity with body mass index (BMI) of 36.0 to 36.9 in adult (278.00,V85.36) (E66.9,Z68.36) Fuyjkff-Lszlp-Vpaag disease (356.1) (G60.0) Orders CAD (coronary artery [...] Weight Tips; Status:Complete - Retrospective Authorization; Done: [id number] Some eating tips that can help you lose weight.; Status:Complete - Retrospective Authorization; Done: [id number] SocHx: Never a smoker Tobacco Use Screening; Status:Complete; Done: [id number] Patient Instructions Please bring all medicines, vitamins, [...] Since her last visit she has developed Gxzxhaa-Nyxia-Fpten joint in the left foot and is planning surgery next month. Cardiac wiseshe has remained symptoms free. Recent lab data were reviewed from July 2022. LDL remains ijgp138 mg/dL. She has been only on Lovaza [...] machine patient has been compliant with it. 7?Zqjibbx-Vhyqg-Owhjo joint in the left ankle and need [...] content not included)...NormalUH Touchworks Culture, MRSA Screenon 81-89-0277Izscwgx, MRSA ScreenCulture, MRSA Screen-: Methicillin resistant Staph aureus not isolatedNormalSHigh Point HospitalHgb A1Con 57-46-6475KpH7r (Bld) [Mass fraction]7.1 %High4.0-5.6SaWestborough State Hospitaledimentation Rateon 42-84-8409Rmijnxdmkfltm Rate44 mm/Hr High0-20SHigh Point HospitalC-Reactive Proteinon 13-66-6871U-Reactive Protein0.4 mg/dLNormal0.0-0.4SHigh Point HospitalCBC With Platelet and Differentialon 20-86-2438Tnc Imm Granulocytes0.01 E9/LNormalBournewood HospitalAbsolute Basophils0.05 E9/LNormal0.00-0.20SHigh Point HospitalAbsolute Eosinophils0.15 E9/LNormal0.05-0.50[facility] Absolute Lymphocytes2.20 E9/LNormal1.50-4.00[facility] Absolute Monocytes0.35 E9/LNormal0.10-0.95B[facility]newood HospitalAbsolute Neutrophils1.88 E9/LNormal1.80-7.30SHigh Point HospitalBasophils/100 WBC (Bld)1.1 %Normal0.0-2.0B[facility]newood HospitalEosinophils/100 WBC (Bld)3.2 %Normal0.0-6.0B[facility]newood HospitalHematocrit (Bld) [Volume fraction]36.9 %Lerlii54.0-48.0B[facility]newood HospitalHemoglobin (Bld) [Mass/Vol]12.4 g/nHCutrrn81.5-15.5SHigh Point HospitalImm Granulocytes 0.2 %Normal0.0-5.0Bournewood HospitalLymphocytes/100 WBC (Bld)47.4 % High20.0-42.0B[facility]newood HospitalMCH (RBC) [Entitic mass]29.7 pgNormal 26.0-35.0B[facility]newood HospitalMCHC33.6 %Fusoap72.0-34.5SHigh Point HospitalMCV (RBC) [Entitic vol]88.3 lRAckhpf47.0-99.9B[facility]newood HospitalMonocytes/100 WBC (Bld)7.5 %Normal2.0-12.0[facility] Neutrophils/100 WBC (Bld)40.6 %Low43.0-80.0[facility]wood HospitalPlatelet Znjbm807 E9/FKezttr679-392XyvhdBournewood HospitalPlatelet mean volume (Bld) [Entitic vol]11.7 fLNormal7.0-12.0B[facility]newood HospitalRBC4.18 E12/LNormal3.50-5.50B[facility]newood HospitalRDW13.3 iBFrgrej18.5-15.0B[facility]newood HospitalWBC4.6 E9/LNormal4.5-11.5SHigh Point Hospital Comprehensive Metabolic Panelon 62-74-5206Iaczmfc [Mass/Vol]4.3 g/dLNormal 3.5-5.2SHigh Point HospitalALP [Catalytic activity/Vol]71 U/LNormal 35-104Bournewood HospitalALT [Catalytic activity/Vol]12 U/LNormal0-32 Bournewood HospitalAnion gap [Moles/Vol]10 mmol/LNormal7-16SHigh Point HospitalAST [Catalytic activity/Vol]19 U/LNormal0-31B[facility]newood HospitalBilirubin [Mass/Vol]0.3 mg/dLNormal0.0-1.2SHigh Point HospitalCalcium [Mass/Vol]10.3 mg/dLHigh8.6-10.2SHigh Point HospitalChloride [Moles/Vol]103 mmol/QEcjyzl17-764DnmaiBournewood HospitalCO2 [Moles/Vol]27 mmol/OCfnpiv89-44FwhsnBournewood HospitalCreatinine [Mass/Vol]1.2 mg/dLHigh0.5-1.0B[facility]newood HospitalGFR/1.73 sq M.predicted among non-blacks MDRD (S/P/Bld) [Vol rate/Area]51 mL/min/{1.73_m2} Normal>=60Bournewood HospitalComment on above:Result Comment: Pediatric calculator link [...] that affects renal tubular secretion.Glucose [Mass/Vol]111 mg/dLHigh 74-99B[facility]newood HospitalPotassium [Moles/Vol]4.6 mmol/LNormal3.5-5.0 [facility] HospitalProtein [Mass/Vol]7.3 g/dLNormal6.4-8.3SHoly Family Hospitalodium [Moles/Vol]140 mmol/FLevdns681-809KhtfpBournewood HospitalUrea nitrogen [Mass/Vol]30 mg/dLHigh6-23B[facility]newood HospitalAlbumin [Mass/volume] in Serum or PlasmaOrdered By: Charan Casey on 16-65-8931Trebptd [Mass/Vol]3.9 g/dL3.2-5.5FSt. Charles Hospital Automated erythrocytes count in urine sediment (number/area)Ordered By: Elpidio Whipple on 02-51-1765KBM Auto (Urine sed) [#/Area]0-1 [HPF]0-4FSt. Charles HospitalAutomated leukocytes count in urine sediment (number/area)Ordered By: Elpidio Whipple on 05-49-5518JEJ Auto (Urine sed) [#/Area]None seen [HPF]0-4 [facility] For RehabilitationBasophils Auto (Bld) [#/Vol]Ordered By: Charan Casey on 77-36-5340Widsmixjb (Bld) [#/Vol]0.1 10*3/uL0.0-0.2FSt. Charles HospitalBasophils/100 WBC Auto (Bld)Ordered By: Charan Casey on 08-13-2022 Basophils/100 WBC (Bld)1.0 %.[facility] For RehabilitationBilirubin Test strip Ql (U)Ordered By: Elpidio Whipple on 82-37-8600Jjeudpnwy Ql (U)Negative NegativeChildren'S Hospital For RehabilitationCholesterol [Mass/volume] in Serum or PlasmaOrdered By: Charan Casey on 00-39-2790Yhiilryyorj [Mass/Vol]170 mg/aA321-540 [facility] RehabilitationComment on above:Chol less than 200 mg/dl low riskChol 201-239 mg/dl borderline riskChol 240 mg/dl and greater high risk Cholesterol in LDL Calc [Mass/Vol]Ordered By: Charan Casey on 08-13-2022 Cholesterol in LDL [Mass/Vol]101 mg/dL0-100[facility] Comment on above:LDL ATP III CLASSIFICATIONLDL less than 100 mg/dL OptimalLDL 100-129 mg/dL Near or above yohcuvdDOR497-569 mg/dL Borderline highLDL 160-189 mg/dL HighLDL greater than 189 mg/dL Very highCholesterol in VLDL Calc [Mass/Vol]Ordered By: Charan Casey on 26-32-7028Adqmtysdvhd in VLDL [Mass/Vol]41 mg/dLChildren'S Hospital For RehabilitationColor Auto (U)Ordered By: Elpidio Whipple on 65-98-1866Jggdb (U)Dark yellowYellowChildren'S Hospital For RehabilitationCreatinine [Mass/volume] in UrineOrdered By: Elpidio Whipple on 82-80-8455Reuaisgbak (U) [Mass/Vol]127.6 mg/dLChildren'S Hospital For RehabilitationComment on above:No reference range establishedCreatinine and Glomerular filtration rate.predicted panel (S/P/Bld)Ordered By: Charan Casey on 24-57-8906Tbghiyerbe [Mass/Vol]1.41 mg/dL0.44-1.03[facility] For RehabilitationEosinophils Auto (Bld) [#/Vol] Ordered By: Charan Casey on 63-82-8888Dzkhuqeqhop (Bld) [#/Vol]0.1 10*3/uL0.0-0.45 [facility] RehabilitationEosinophils/100 WBC Auto (Bld)Ordered By: Charan Casey on 73-79-9741Zrdajjhnfuf/100 WBC (Bld)1.7 %.[facility] For RehabilitationErythrocyte distribution width Auto (RBC) [Ratio]Ordered By: Charan Casey on 56-02-6197Scmexgmkjyi distribution width (RBC) [Ratio]13.1 %11.9-15.3FSt. Charles HospitalEstimated glomerular filtration rate (GFR) non- AmericanOrdered By: Charan Casey on 88-25-7293GRP/1.73 sq M.predicted among non- blacks MDRD (S/P/Bld) [Vol rate/Area]38 mL/MinChildren'S Hospital For Rehabilitation Globulin Calc (S) [Mass/Vol]Ordered By: Charan Casey on 60-58-8956Eqzhfzsm (S) [Mass/Vol]3.1 g/dLChildren'S Hospital For RehabilitationHematocrit Auto (Bld) [Volume fraction]Ordered By: Charan Casey on 81-91-1563Mtvuajkmtb (Bld) [Volume fraction] 38.0 %34.0-46.4FSt. Charles HospitalHemoglobin [Mass/volume] in BloodOrdered By: Charan Casey on 75-44-6919Nmqvecdwmb (Bld) [Mass/Vol]12.6 g/dL 11.8-15.4FSt. Charles HospitalKetones Auto test strip (U) [Mass/Vol] Ordered By: Elpidio Whipple on 83-98-4367Xknamuo (U) [Mass/Vol]NegativeNegative [facility] RehabilitationLaboratory - Chemistry and Chemistry - challengeOrdered By: Elpidio Whipple on 81-95-8863Uzucegpwe [Mass/Vol]1.9 mg/dL 1.6-2.6FSt. Charles HospitalLaboratory - Hematology and Cell counts Ordered By: Charan Casey on 68-72-6026Kljmfneap RBC/100 WBC (Bld) [Ratio]0.0 % 0-0.5FSt. Charles HospitalLaboratory - UrinalysisOrdered By: Elpidio Whipple on 81-76-1712Oovleze casts LM Ql (Urine sed)0-8 [LPF]0-8[facility] For RehabilitationLeukocytes [#/volume] in Blood by Automated countOrdered By: Charan Casey on 90-97-5817CWV (Bld) [#/Vol]8.2 10*3/uL4.5-11.0[facility] For RehabilitationLymphocytes Auto (Bld) [#/Vol]Ordered By: Charan Casey on 08-13-2022 Lymphocytes (Bld) [#/Vol]2.8 10*3/uL1.00-4.8[facility] Lymphocytes/100 WBC Auto (Bld)Ordered By: Charan Casey on 08-13-2022 Lymphocytes/100 WBC (Bld)34.1 %.[facility] HospitalH Auto (RBC) [Entitic mass]Ordered By: Charan Casey on 27-36-3025AIO (RBC) [Entitic mass]28.5 pg24.7-34.3FFirelands Regional Medical Center South CampusHC Auto (RBC) [Mass/Vol]Ordered By: Charan Casey on 63-90-2373MAFQ (RBC) [Mass/Vol]33.2 g/dL32.0-35.0[facility] For RehabilitationMCV Auto (RBC) [Entitic vol]Ordered By: Charan Casey on 89-79-8315NMW (RBC) [Entitic vol]85.8 gJ64-645ZqqqvmihzChildren'S Hospital For Rehabilitation Monocytes Auto (Bld) [#/Vol]Ordered By: Charan Casey on 80-10-8619Bndvcceqi (Bld) [#/Vol]0.5 10*3/uL0.0-0.8[facility] For RehabilitationMonocytes/100 WBC Auto (Bld)Ordered By: Charan Casey on 20-57-5518Odhrqrqwd/100 WBC (Bld)6.4 %.[facility] For RehabilitationNeutrophils Auto (Bld) [#/Vol]Ordered By: Charan Casey on 09-28-7450Pukyscwopgu (Bld) [#/Vol]4.7 10*3/uL1.8-7.7FSt. Charles HospitalNeutrophils/100 WBC Auto (Bld)Ordered By: Charan Casey on 08-13-2022 Neutrophils/100 WBC (Bld)56.8 %.[facility] Hospital For RehabilitationNitrite Test strip Ql (U)Ordered By: Elpidio Whipple on 54-63-0722Toikbwd Ql (U)NegativeNegative [facility] For RehabilitationNo Panel InformationOrdered By: Charan Casey on 09-03-910439571140-Olsecol Vitamin D Total37.8 ng/uX44-183SushtrvcrChildren'S Hospital For RehabilitationComment on above:VITAMIN D STATUS 25(OH)VITAMIN D RANGE (ng/mL) Deficient <20 Insufficient 20 to <06Atfespludr50 to 100Reference: Nayeli MF,Hannah SCHREIBER, Jose GILBERT, et al. Evaluation,treatment, and prevention of vitamin D deficiency; an Endocrine Society clinical practice guideline. JCEM. 2010; 96 (7):1911-30.Estimated GFR ()46 mL/MinChildren'S Hospital For RehabilitationComment on above:GFR estimated reference range: According to KDOQI guidelines, <60 ml/min/1.73m2 is sufficient todiagnose a patient with chronic kidney disease.Pharmacy Creatinine Clearance (ChemN/[facility] HospitalPlatelet mean volume Auto (Bld) [Entitic vol]Ordered By: Charan Casey on 49-10-7505Kusvycuj mean volume (Bld) [Entitic vol]9.2 fL6.3-10.7FSt. Charles HospitalPlatelets Auto (Bld) [#/Vol]Ordered By: Charan Casey on 24-51-0916Fieqqwjrz (Bld) [#/Vol]272 10*3/qQ010-676RncujxjxsChildren'S Hospital For RehabilitationProtein Auto test strip (U) [Mass/Vol]Ordered By: Elpidio Whipple on 74-50-9739Xdlxicp (U) [Mass/Vol]NegativeNegativeChildren'S Hospital For RehabilitationProtein [Mass/volume] in Serum or PlasmaOrdered By: Charan Casey on 45-15-6353Yqgjabw [Mass/Vol]7.0 g/dL6.1-7.9[facility] Protein [Mass/volume] in UrineOrdered By: Elpidio Whipple on 35-42-2709Yydnkfk (U) [Mass/Vol]7 mg/dL0-9[facility] For RehabilitationRBC Auto (Bld) [#/Vol] Ordered By: Charan Casey on 61-15-1169RYJ (Bld) [#/Vol]4.43 10*6/uL3.60-5.00 [facility] Healtherum or plasma alanine aminotransferase measurement without P-5'-P (enzymatic activiOrdered By: Charan Casey on 08-13-2022 ALT No additional P-5'-P [Catalytic activity/Vol]12 U/J50-69GiouiereuKettering Healtherum or plasma albumin/globulin mass ratioOrdered By: Charan Casey on 35-91-9946Xjbuzwj/Globulin [Mass ratio]1.3 {ratio}[facility] Healtherum or plasma alkaline phosphatase measurement (enzymatic activity/volume)Ordered By: Charan Casey on 38-25-3516YRZ [Catalytic activity/Vol] 79 U/A55-71ZwoyzfpvoKettering Healtherum or plasma anion gap determinationOrdered By: Charan Casey on 34-14-7687Nweot gap [Moles/Vol]15.4 mmol/L6.0-15.0[facility] Healtherum or plasma aspartate aminotransferase measurement (enzymatic activity/volume)Ordered By: Charan Casey on 65-28-3786WGV [Catalytic activity/Vol]22 U/A87-28MdrqammpxKettering Healtherum or plasma calcium measurement (mass/volume)Ordered By: Charan Casey on 19-19-3267Kepcqbx [Mass/Vol]10.1 mg/dL8.2-10.2FSt. Charles Hospital Serum or plasma chloride measurement (moles/volume)Ordered By: Charan Casey on 21-35-1077Nkzkbbll [Moles/Vol]102 mmol/W51-065VyonuotwsChildren'S Hospital For Rehabilitation Serum or plasma glucose measurement (mass/volume)Ordered By: Charan Casey on 08-06-7720Mvxmpbl [Mass/Vol]114 mg/yS64-240KgmqqrikfChildren'S Hospital For Rehabilitation Comment on above:ADA recommended reference rangeRandom Glucose Reference Range is dependent on time and content of last meal. Glucose of more than 200 mg/dL in a nonstressed, ambulatory subject supports the diagnosisof Diabetes Mellitus. Serum or plasma high density lipoprotein (HDL) cholesterol measurementOrdered By: Charan Casey on 52-34-9626Gpiatgckcex in HDL [Mass/Vol]28 mg/dN70-14ZukersbdzChildren'S Hospital For RehabilitationComment on above:HDL CHOL ATP-III CLASSIFICATION Cardiovascular RiskHDL > or equal to 60 mg/dL LOWHDL < 40 mg/dL HIGHSerum or plasma intact parathyroid hormone measurement (mass/volume)Ordered By: Elpidio Whipple on 64-52-4209Qxwefbwjfb.intact [Mass/Vol]87.0 pg/rL40-87QknohzobiKettering Healtherum or plasma potassium measurement (moles/volume)Ordered By: Charan Casey on 71-26-2108Kzcfkdlfe [Moles/Vol]4.9 mmol/L3.5-5.1FParma Community General Hospitalerum or plasma sodium measurement (moles/volume)Ordered By: Charan Casey on 92-29-0155Kepdrp [Moles/Vol]138 mmol/R051-214OnkyqgokeKettering Healtherum or plasma total bilirubin measurement (mass/volume)Ordered By: Charan Casey on 50-29-8060Pcsygmvkd [Mass/Vol]0.4 mg/dL0.3-1.2FParma Community General Hospitalerum or plasma total carbon dioxide measurement (moles/volume)Ordered By: Charan Casey on 12-89-9704LE2 [Moles/Vol]25.5 mmol/L 22.0-30.0[facility] Healtherum or plasma total cholesterol/high density lipoprotein (HDL) cholesterol mass ratOrdered By: Charan Casey on 87-14-5228Knrvhospgev.total/Cholesterol in HDL [Mass ratio]6.1 {ratio}<5.0 [facility]altherum or plasma urea nitrogen measurement (mass/volume)Ordered By: Charan Casey on 25-57-7921Vkna nitrogen [Mass/Vol]45 mg/dL9-23K[facility] Healtherum or plasma uric acid measurement (mass/volume)Ordered By: Charan Casey on 14-96-2737Jsjzp [Mass/Vol]7.9 mg/dL 2.6-7.2FParma Community General Hospitalpecific gravity Auto test strip (U) [Rel density]Ordered By: Eplidio Whipple on 24-86-8957Grfsepnl gravity (U) [Rel density]1.0201.001-1.030Kettering Healthquamous epithelial cells detection in urine sediment by light microscopyOrdered By: Elpidio Whipple on 66-34-9162Cymjssbfry cells.squamous LM Ql (Urine sed)0-1 [HPF]0-2FSt. Charles HospitalTS DL <= 0.005 mIU/L QnOrdered By: Charan Casey on 99-04-6934SHH Qn1.91 m[IU]/L0.45-5.33[facility] Triglyceride [Mass/volume] in Serum or PlasmaOrdered By: Charan Casey on 74-82-6799Kkiqzyhstlzx [Mass/Vol]207 mg/dI91-632WtkdunbklChildren'S Hospital For RehabilitationComment on above:TRIG ATP III CLASSIFICATIONTRIG less than 150 mg/dL NormalTRIG 150-199 mg/dL Borderline highTRIG 200-500 mg/dL High TRIG greater than 500 mg/dL Very highStandard traceable to the Center for Disease Conrtrol and Prevention (CDC) test method.Urine bacteria detection by automated method Ordered By: Elpidio Whipple on 40-36-3189Cspuezwi Auto Ql (U)None seenNone Seen [facility] For RehabilitationUrine clarity by refractometry automatedOrdered By: Elpidio Whipple on 87-16-0826Vyzoozd Refractometry automated (U)ClearClear [facility] For RehabilitationUrine glucose measurement by automated test strip (mass/volume)Ordered By: Elpidio Whipple on 29-52-8318Yycievz Auto test strip (U) [Mass/Vol]Normal mg/dLNormalChildren'S Hospital For RehabilitationUrine hemoglobin detection by automated test stripOrdered By: Elpidio Whipple on 48-94-5158Zfgfxwshyv Auto test strip Ql (U)NegativeNegativeChildren'S Hospital For RehabilitationUrine leukocyte esterase detection by automated test stripOrdered By: Elpidio Whipple on 17-15-2525Ygtbiyfbq esterase Auto test strip Ql (U)Negative NegativeChildren'S Hospital For RehabilitationUrine protein/creatinine ratioOrdered By: Elpidio Whipple on 92-66-9529Frkfrfb/Creatinine (U) [Ratio]55 mg/g{Cre}0-200 [facility] For RehabilitationUrobilinogen Auto test strip (U) [Mass/Vol] Ordered By: Elpidio Whipple on 00-87-6526Okxsxubyeaek (U) [Mass/Vol]Normal mg/dL NormalChildren'S Hospital For RehabilitationpH Auto test strip (U)Ordered By: Elpidio Whipple on 71-74-3077pV (U)5.0 [pH]5.0-9.0[facility] For RehabilitationTobacco Screening.on 88-90-8078Wfkrb depression screening assessmentNo-[facility] [address] DO Work Phone: Fall risk assessmenta) No falls within the last year MP-[facility] [address] DO Work Phone: Tobacco use status CPHSb) NoMP-[facility] [place] [address] DO Work Phone: Laboratory - Chemistry and Chemistry - challengeon 77-54-8222Eqbwzsxvxkk [Mass/Vol]218\S\218above high vczztivea471-301GB-[facility] [place] [facility]-[place] [address] DO Work Phone: Comment on above:Chol less than 200 mg/dl low risk Chol 201-239 mg/dl borderline risk Chol 240 mg/dl and greater high risk Cholesterol in LDL [Mass/Vol]145\S\145above high ojpahmenb1-850PU-[facility] [place] [facility] [address] DO Work Phone: Comment on above:LDL ATP III CLASSIFICATION LDL less than 100 mg/dL Optimal LDL 100-129 mg/dL Near or above optimal LDL 130-159 mg/dL Borderline high LDL 160-189 mg/dL High LDL greater than 189 mg/dL Very high Laboratory - Microbiology and Antimicrobial susceptibilityon 03-25-2022 SARS-CoV-2 (COVID-19) RNA AHMET+probe Ql (Unsp spec)-[facility] [address] DO Work Phone: No Panel Informationon .2\S\40.2Normal.- [facility]-[place] 250 DO Work Phone: [phone]\S\9.3Wzpdqx0.3-10.7MP-[facility]-[place] 250 DO Work Phone: [phone]\S\406Gqlcor875-493QZ-Tnotg [place] [facility] [address] DO Work Phone: [phone]\S\13.1Ivhhup74.9-15.3MP-[facility] [address] DO Work Phone: [phone]\S\34.4Txhwuu09.0-35.0MP-[facility]-[place] 250 DO Work Phone: [phone]\S\29.1Aayjsl41.7-34.3MP-[facility] [address] DO Work Phone: [phone]\S\2.0Wgjxpu9.8-7.7MP-[facility] [address] DO Work Phone: [phone]\S\0.2Ifhhma6.0-0.45MP-[facility] [address] DO Work Phone: [phone]\S\0.6Normal.MP-[facility] [address] DO Work Phone: [phone]\S\2.9Normal.MP-[facility] [address] DO Work Phone: [phone]\S\7.1Normal.-[facility] [address] DO Work Phone: [phone]\S\49.2Normal.MP-[facility] [address] DO Work Phone: [phone]\S\0.9Mbxmys1.0-0.2MP-[facility] [address] DO Work Phone: [phone] on above:PERFORMED BY:[facility] [place], [place] [id number] MEDICAL DIRECTORJE SHELLEY M.D.0.4\S\0.6Arjlqb2.0-0.8MP-[facility] [address] DO Work Phone: [phone]\S\2.9Xaicuh7.00-4.8MP-[facility]-[place] 250 DO Work Phone: [phone]\S\85.9Lugcbi91-241JR-[facility] [place] [facility]-Radha 250 DO Work Phone: [phone]\S\39.8Jjvenf11.0-46.4MP-[facility]-[place] 250 DO Work Phone: [phone]\S\13.6Fqoxfd23.8-15.4MP-[facility]-[place] 250 DO Work Phone: [phone]\S\4.79Tfqfwp1.60-5.00MP-[facility] Heart-[facility] 250 DO Work Phone: 1(951)677-96005.1\S\5.7Xztblr0.8-11.6MP-[facility]-[place] 250 DO Work Phone: 1(452)967-270033.3\S\33.4Gsviwz25.1-36.5MP-[facility] 250 DO Work Phone: Comment on above:PERFORMED BY:[place] [address] [place], [place] [phone] MEDICAL DIRECTORJE SHELLEY M.D.1.0\S\1.0NormalMP-[facility]-[place] 250 DO Work Phone: Comment on above:INR [...] patients with mechanical heart valves: 3 - 4.510.9\S\10.9Ljgldh2.0-12.9MP-[facility] 250 DO Work Phone: 1(276)[phone]\S\26.7Jddsiu89.0-30.0MP-[facility]ha 250 DO Work Phone: 1(685)669-9300104\S\730Tfatkn86-221RB-Arorg [place] [facility] 250 DO Work Phone: 1(666)708-03004.0\S\4.2Amnwte5.5-5.1MP-[facility] 250 DO Work Phone: 1(260) [phone]\S\520Mtnmol590-501BR-Svihy [place] [facility] 250 DO Work Phone: 1(526) [phone]\S\79Ubulzc0-82GN-Jcxgc [place] [facility] 250 DO Work Phone: 1([phone]) [phone]\S\54NormalMP-[facility] 250 DO Work Phone: Comment on above:GFR estimated reference range: According to KDOQI guidelines, <60 ml/min/1.73m2 is sufficient todiagnose a patient with chronic kidney disease.45\S\45NormalMP-[facility]ha 250 DO Work Phone: 1([phone])255-97001.22\S\1.22above high threshold0.44-1.03MP-[facility]-[place] 250 DO Work Phone: 1(909)416-65006.4\S\6.4Normal<5.0MP-[facility] Heart-[facility]ha 250 DO Work Phone: Comment on above:PERFORMED BY:[place] [id number] [place], [place] [phone] MEDICAL DIRECTORJE SHELLEY M.D.39\S\39NormalMP-[facility]ha 250 DO Work Phone: [phone]\S\197above high lplwkonaq59-168PD-Icedn [place] [facility] 250 DO Work Phone: Comment on above:TRIG ATP III CLASSIFICATION TRIG less than 150 mg/dL Normal TRIG 150-199 mg/dL Borderline high REWD270-388 mg/dL High TRIG greater than 500 mg/dL Very high Standard traceable to the Center for Disease Conrtrol and Prevention (CDC) test method.34\S\34below low threshold 94-11YW-Jwalr [place] [facility] 250 DO Work Phone: Comment on above:HDL CHOL ATP-III CLASSIFICATION Cardiovascular Risk HDL > or equal to 60 mg/dL LOW HDL < 40 mg/dL HIGHNegative NormalNegativeMP-[facility] 250 DO Work Phone: Comment on above:This is a duplicate Ashley SARS Antigen (PRISCILA) result to be used for statistical tracking purpose only.PERFORMED BY:[facility] [place], [place] [phone] MEDICAL DIRECTORJE SHELLEY M.D.CT Angio Coronary Arteries with Heart Flowon [id number] Angio Coronary Arteries with Heart Flow NormalMP-[facility] 250 DO Work Phone: th CTA CORONARY ART WITH HEARTFLOW IF SCORE >30%.on [id number] CTA CORONARY ART WITH HEARTFLOW IF SCORE [...] R07.9: Chest pain. COMPARISON: None. ACCESSION NUMBER(S): [id number] ORDERING CLINICIAN: PARK TORRES TECHNIQUE: Using multi-detector CT technology, Tito [...] Intact. AORTIC VALVE: The (more content not included)...NormalParkview Pueblo West HospitalTobacco Screening.on 18-36-7467Gsxcv depression screening assessmentNo-[facility] 250 DO Work Phone: Fall risk assessmenta) No falls within the last year -[facility] [employer] [facility] 250 DO Work Phone: Tobacco use status CPHSb) NoM-[facility]- [place] 250 DO Work Phone: SURGICAL PATHOLOGYon 60-74-4861YHSBMZYM PATHOLOGY Specimen #: [id number] Physician: REUBEN CRAVEN M.D. FINAL DIAGNOSIS1. 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 Skin,left upper arm, shave biopsy ([id number]; 07/20/2018) - Intradermal nevus, neurotized (see comment).AF/CE/dss 07/26/2018 COMMENTMany thanks for involving us in this case of two melanocytic lesions fromthe right posterior shoulder and left upper arm of a 57-year-old woman. 1. Histologic sections demonstrate a junctional melanocytic proliferationwith bridging of adjacent rete ridges, papillary dermalfibrosis andunderlying sparse lymphocytic inflammation and melanoderma. An immunohistochemical stain for MART-1 and S[facility]. These stains highlight a well-nested,symmetric junctional melanocytic proliferation, consistent with the abovediagnosis.2. Histologic sections demonstrate an intradermal melanocytic proliferationthat matures and disperses to the base. The lesional cells have a spindled,neural appearance with descent into the dermis. Atypia and lymphoidaggregates are not identified. Immunohistochemical stains performed at the [facility] for MART-1and S100 are reviewed. These stains highlight the spindled cells within thedermis. Overall, these histologic and immunohistochemical features areconsistent with the diagnosis ofa neurotized intradermal nevus.Thank you for sending this case in consultation. Please call theDermatopathology Consultation Service at [phone] with questions or ifadditional follow-up information becomes available regarding this patient.This case was reviewed in conjunction with the Dermatopathology Fellow, Dr.Carly Marija MD.Donald Zavaleta M.D. PhD(Electronic Signature) SPECIMEN SUBMITTEDA: 11 SLIDES ([id number]) CLINICAL DATANone provided. of Report: 07/26/2018Date of Procedure: 07/23/2018Dateof Receipt: 07/23/2018Submitted by: REUBEN CRAVEN M.D.Location: N62Tnbqaeymkg interpretation performed at [facility], [address] [place] [address].NormalMet[facility] Reference LabComment on above:Performed By: #### S ####See report for performing lab information. Vital Signs Date TimeVital SignValuePerforming NxjadxehjPwyfjize28-49-1070 08:040Body qaaohl471.6 cmAlllucia Munroe DO Work Phone: [facility] Clbgmghgcg88-44-2013 08:040Body temperature 97.5 [degF]Shaina Munroe DO Work Phone: [facility] Xcycbfxqsn43-18-2354 08:13040Diastolic blood bhetimep20 mm[Hg]Shaina Petznick DO Work Phone: noSaint [facility] WestQspchmrtpb70-95-1071 08:13-0400Heart rate65 /min Shaina Petznick DO Work Phone: noSaint [facility] WestFdunnxewjb55-43-9474 08:13-4650JhV9% (BldA) [Mass fraction]98 %Shaina Petznick DO Work Phone: noSaint [facility] WestEdvotqtmyb48-59-2236 08:13-0400Systolic blood upjzdgmi611 mm[Hg]Shaina Petznick DO Work Phone: noSaint [facility] WestRikrgjrnvh36-45-9215 08:20-0400Body temperature 97.8 [degF]Charan Casey DO Work Phone: [phone]08-13-2025 08:20-0400 Diastolic blood chkqsimv89 mm[Hg]Charan Casey DO Work Phone: [facility]08-13-2025 08:20-0400 Heart rate70 /minCharan Casey DO Work Phone: [facility]08-13-2025 08:20-0400 Respiratory rate16 /minCharan Casey DO Work Phone: [facility]08-13-2025 08:20-0400 SaO2% (BldA) [Mass fraction]97 %Charan Casey DO Work Phone: [facility]08-13-2025 08:20-0400 Systolic blood cqahwrlv675 mm[Hg]Charan Casey DO Work Phone: [facility]06-16-2025 10:29-0400 Body skiqvs669.6 cmAlllucia Petfelipeick DO Work Phone: noSaint [facility] WestPlgwpudwlr40-43-1075 10:29-0400Body mass index (BMI) [Ratio]35.86 kg/t1Zqqepra Petznick DO Work Phone: noSaint [facility] WestJzhsvbyfza58-83-4803 10:29-0400Body temperature 97.2 [degF]Shaina Munroe DO Work Phone: [facility] LouisYmrhhdscaz34-56-7861 10:29-0400Body .79 kgShaina Munroe DO Work Phone: 1(144)[facility] LouisSmgrazbbnb10-12-8952 10:29-0400Diastolic blood xymmwmak49 mm[Hg]Shaina Munroe DO Work Phone: 1(464)399-[address] [place], [place] [address]Tjdjyctpew28-38-8241 10:29-0400Heart rate67 /min Shaina Munroe DO Work Phone: 1(449)[facility] [place], [place] [address]Ydetzzmnel52-94-0690 10:29-2113IjT0% (BldA) [Mass fraction]98 %Shaina Munroe DO Work Phone: 1(102)[facility]-[address] LouisKtlwjhylow92-37-0041 10:29-0400Systolic blood naoqshil858 mm[Hg]Shaina Munroe DO Work Phone: 1(893)792-[address] [place], [place] [address]Rpwwsibwsj56-45-2518 08:09-0400Body jnxmyl870.18 cmCharan Casey DO Work Phone: [phone])[address]04-07-2025 08:09-0400 Body mass index (BMI) [Ratio]35.4 kg/q4XxsjpCharan Casey DO Work Phone: 1(489)[address]04-07-2025 08:09-0400 Body ksvpty077.51 kgCharan Casey DO Work Phone: [phone]04-07-2025 08:09-0400 Respiratory rate16 /minCharan Casey DO Work Phone: [phone]04-07-2025 08:09-0400 SaO2% (BldA) [Mass fraction]98 %Charan Casey DO Work Phone: [phone]03-20-2025 09:35-0400 Body xnztew586.18 cmCharan Casey DO Work Phone: 1(655)001-[address] [place], [place] 5059303-20-2025 09:35-0400 Body mass index (BMI) [Ratio]36.5 kg/u8MbtseCharan Masseys DO Work Phone: 1(152)[address]03-20-2025 09:35-0400 Body tjimhs281.68 kgCharan Masseys DO Work Phone: 1(447)7-[address] [place], [place] 5059302-10-2025 10:01-0500 Body yxfojm511.18 cmCharan Masseys DO Work Phone: 1([phone] [place], [place] 5059302-10-2025 10:01-0500 Body mass index (BMI) [Ratio]36.5 kg/a2LpogmChaarn Masseys DO Work Phone: 1([phone])[address] [place], [place] 1567202-10-2025 10:01-0500 Body htbyqs235.68 kgCharan Masseys DO Work Phone: 1(052)[address] [place], [place] 1567202-10-2025 10:01-0500 Diastolic blood kqycocna29 mm[Hg]Charan Masseys DO Work Phone: 1(201)[address] [place], [place] 1567202-10-2025 10:01-0500 Heart rate69 /minCharan Masseys DO Work Phone: 1(920)[address] [place], [place] 1567202-10-2025 10:01-0500 Respiratory rate16 /minCharan Masseys DO Work Phone: 1([phone])[address] [place], [place] 1567202-10-2025 10:01-0500 SaO2% (BldA) [Mass fraction]98 %Charan Masseys DO Work Phone: 1(614)[address] [place], [place] 1567202-10-2025 10:01-0500 Systolic blood catpqgmf851 mm[Hg]Charan Masseys DO Work Phone: 1(045)[address] [place], [place] 1567201-10-2025 10:39-0500 Body ilqxqg169.18 cmYeisonan Brysons DO Work Phone: [phone])[address] [place], [place] 1567201-10-2025 10:39-0500 Body mass index (BMI) [Ratio]36.1 kg/z4Ailbv Brysons DO Work Phone: [facility]01-10-2025 10:39-0500 Body uwsvyeiyqdd11.4 [degF]Charan Masseys DO Work Phone: [facility]01-10-2025 10:39-0500 Body .77 kgCharan Masseys DO Work Phone: [facility]01-10-2025 10:39-0500 Diastolic blood xrxsgeql38 mm[Hg]Charanheather Masseys DO Work Phone: [facility]01-10-2025 10:39-0500 Heart rate78 /minYeisonan Brysons DO Work Phone: [facility]01-10-2025 10:39-0500 Respiratory rate16 /minYeisonan Kuns DO Work Phone: [address] [place], [place] 1906101-10-2025 10:39-0500 SaO2% (BldA) [Mass fraction]97 %Charan Masseys DO Work Phone: [facility]01-10-2025 10:39-0500 Systolic blood pmcgktje630 mm[Hg]Charan Masseys DO Work Phone: [facility]12-03-2024 09:30-0500 Diastolic blood pknjbylu03 mm[Hg]Charan Masseys DO Work Phone: [facility]12-03-2024 09:30-0500 Heart rate65 /minYeisonan Brysons DO Work Phone: [facility]12-03-2024 09:30-0500 Respiratory rate16 /minYeisonan Kuns DO Work Phone: [facility]12-03-2024 09:30-0500 SaO2% (BldA) [Mass fraction]99 %Charan Brysons DO Work Phone: [facility]12-03-2024 09:30-0500 Systolic blood yodzwrek585 mm[Hg]Charan Casey DO Work Phone: [facility]12-03-2024 08:48-0500 Inhaled oxygen flow rate3 L/minCharan Casey DO Work Phone: [facility]12-03-2024 07:38-0500 Body vslqxu407.18 cmCharan Casey DO Work Phone: [facility]12-03-2024 07:38-0500 Body .86 kgCharan Casey DO Work Phone: [facility]11-20-2024 08:13-0500 Body .88 kgCharan Casey DO Work Phone: [phone]11-18-2024 13:12-0500 Body gqogxq173.6 cmAlllucia Petznarnaldo DO Work Phone: 5([phone])637-[address] [place], [place] [address]Ykmldcszqr79-42-3407 13:12-0500Body mass index (BMI) [Ratio]39.06 kg/m6Okztthn Petznick DO Work Phone: [facility] LouisJadcscfruz61-05-7577 13:12-0500Body temperature 97.3 [degF]Shaina Petznick DO Work Phone: 1(639)157-[address] [place], [place] [address]Rffwjwetwk42-48-0162 13:12-0500Body .77 kgAllison Petznick DO Work Phone: 5(633)983-[address] [place], [place] [address]Dpqlqfrsad90-94-4751 13:12-0500Diastolic blood cvaokyet74 mm[Hg]Shaina Petznick DO Work Phone: [facility] LouisQrduxojwcb39-29-8183 13:12-0500Heart rate78 /min Shaina Petznick DO Work Phone: [place] [address]Ltplzwslmv34-33-3272 13:12-7789FeF1% (BldA) [Mass fraction]96 %Shaina Petznick DO Work Phone: [facility] LouisKdgprmbugn01-60-4195 13:12-0500Systolic blood jamaucfa472 mm[Hg]Shaina Petznick DO Work Phone: [facility] LouisCwzaqqotyn68-95-4096 10:28-0400Diastolic blood hkssdgii50 mm[Hg]DO Charan Casey Work Phone: [facility]10-22-2024 10:28-0400 Heart rate68 /Dean Casey Work Phone: [facility]10-22-2024 10:28-0400 Respiratory rate16 /Dean Casey Work Phone: [facility]10-22-2024 10:28-0400 SaO2% (BldA) [Mass fraction]95 %DO Charan Casey Work Phone: [facility]10-22-2024 10:28-0400 Systolic blood ssbavrkv499 mm[Hg]DO Charan Casey Work Phone: [address] [place], [place] 1906[address]-22-2024 09:50-0400 Inhaled oxygen flow rate3 L/Dean Casey Work Phone: [facility]10-22-2024 08:38-0400 Body ubxjat933.18 cmDO Charan Casey Work Phone: [facility]10-22-2024 08:38-0400 Body eeqptb421.95 kgDO Charan Casey Work Phone: [facility]09-26-2024 08:35-0400 Body ejijnv490.2 cmRosalinda Torres MD Work Phone: [facility]09-26-2024 08:35-0400 Body mass index (BMI) [Ratio]37.75 kg/k6WwlkhjRosalinda Torres MD Work Phone: [facility]09-26-2024 08:35-0400 Body ayyruh967.32 kgRosalinda Torres MD Work Phone: [facility]09-26-2024 08:35-0400 Diastolic blood xucgyuug39 mm[Hg]Rosalinda Torres MD Work Phone: [facility]09-26-2024 08:35-0400 Heart rate80 /Aleida Torres MD Work Phone: [facility]09-26-2024 08:35-0400 Systolic blood ulqtxzwl306 mm[Hg]Rosalinda Torres MD Work Phone: [facility]07-10-2024 15:44-0400 Body uxjhrl110.18 cmDO Charan Casey Work Phone: [facility]07-10-2024 15:44-0400 Body mass index (BMI) [Ratio]37 kg/m2DO Charan Casey Work Phone: [facility]07-10-2024 15:44-0400 Body rinnni858.5 kgDO Charan Casey Work Phone: [facility]07-10-2024 15:44-0400 Diastolic blood tnakhxgq39 mm[Hg]DO Charan Casey Work Phone: [facility]07-10-2024 15:44-0400 Heart rate95 /Dean Casey Work Phone: [facility]07-10-2024 15:44-0400 SaO2% (BldA) [Mass fraction]96 %DO Charan Casey Work Phone: [facility]07-10-2024 15:44-0400 Systolic blood yzuydgrw842 mm[Hg]DO Charan Casey Work Phone: [facility]07-02-2024 11:30-0400 Diastolic blood ikfbmqpv74 mm[Hg]DO Charan Casey Work Phone: [facility]07-02-2024 11:30-0400 Heart rate68 /minDO Charan Casey Work Phone: [address] [place], [place] 1906107-02-2024 11:30-0400 Respiratory rate16 /GeovanyO Charan Casey Work Phone: [facility]07-02-2024 11:30-0400 SaO2% (BldA) [Mass fraction]98 %DO Charan Casey Work Phone: [facility]07-02-2024 11:30-0400 Systolic blood fowbrrpb626 mm[Hg]DO Charan Casey Work Phone: [facility]07-02-2024 10:53-0400 Inhaled oxygen flow rate3 L/Dean Casey Work Phone: [address] [place], [place] 1906107-02-2024 10:09-0400 Body ujwhtr103.18 cmDO Charan Casey Work Phone: [phone]07-02-2024 10:09-0400 Body fhieci541.86 kgDO Charan Casey Work Phone: [facility]04-02-2024 09:31-0400 Body ydwiha156.18 cmDO Charan Casey Work Phone: [facility]04-02-2024 09:31-0400 Body mass index (BMI) [Ratio]37.4 kg/m2DO Charan Casey Work Phone: [facility]04-02-2024 09:31-0400 Body rusnwxtmfrx65.8 [degF]DO Charan Casey Work Phone: [facility]04-02-2024 09:31-0400 Body ayeexv835.4 kgDO Charan Casey Work Phone: [facility]04-02-2024 09:31-0400 Diastolic blood cuupeujz17 mm[Hg]DO Charan Casey Work Phone: [facility]04-02-2024 09:31-0400 Heart rate88 /Dean Casey Work Phone: [facility]04-02-2024 09:31-0400 Respiratory rate16 /Dean Casey Work Phone: [facility]04-02-2024 09:31-0400 SaO2% (BldA) [Mass fraction]98 %DO Charan Casey Work Phone: [facility]04-02-2024 09:31-0400 Systolic blood vymiqhpw627 mm[Hg]DO Charan Casey Work Phone: [facility]03-25-2024 14:26-0400 Body .2 cmRosalinda Torres MD Work Phone: 2(231)925-[address] [place], [place] 1333103-25-2024 14:26-0400 Body mass index (BMI) [Ratio]37.12 kg/y6FchdzzRosalinda Torres MD Work Phone: 1(460)129-[address] [place], [place] 1333103-25-2024 14:26-0400 Body fzuglh929.5 kgRosalinda Torres MD Work Phone: 2(716)462-[address] [place], [place] 1333103-25-2024 14:26-0400 Diastolic blood kodqntod77 mm[Hg]Rosalinda Torres MD Work Phone: 3(241)126-[address] [place], [place] 1333103-25-2024 14:26-0400 Heart rate84 /minRosalinda Torres MD Work Phone: 2(600)917-[address] [place], [place] 1333103-25-2024 14:26-0400 Systolic blood awyheosm510 mm[Hg]Rosalinda Torres MD Work Phone: 9(264)754-[address] [place], [place] 1333101-31-2024 13:00-0500 Body .18 cmCharan Casey Other [facility]01-31-2024 13:00-0500 Body mass index (BMI) [Ratio]37.59 kg/l2CrqvdCharan Casey Other [employer] Other 01-31-2024 13:00-0500Body isfiecbftly50.3 [degF]Charan Casey Other [facility] [employer] Other 01-31-2024 13:00-0500Body mexncs885.86 kgCharan Casey Other [facility]01-31-2024 13:00-0500 Diastolic blood mm[Hg]Charan Casey Other [facility]01-31-2024 13:00-0500 Respiratory rate18 /minCharan Casey Other [employer] Other 01-31-2024 13:00-2148OyX4% (BldA) [Mass fraction]96 % Charan Casey Other [employer] Other 01-31-2024 13:00-0500Systolic blood qwejezbm856 mm[Hg] Charan Casey Other [facility]11-22-2023 12:45-0500 Body mylobe950.18 cmThommarquez Bellamy Other [employer] Other 11-22-2023 12:45-0500Body mass index (BMI) [Ratio] 37.43 kg/l9Hytkzw Josesito Other [employer] Other 11-22-2023 12:45-0500Body pydmqwflyzb15.6 [degF]Blas Josesito Other [employer] Other 11-22-2023 12:45-0500Body .41 kgThomas Josesito Other [employer] Other 11-22-2023 12:45-0500Diastolic blood yiemlgdu44 mm[Hg] Blas Bellamy Other [employer] Other 11-22-2023 12:45-0500Respiratory rate18 /minThomas Josesito Other [employer] Other 11-22-2023 12:45-6853NdG2% (BldA) [Mass fraction]96 % Blas Bell[facility] Other [facility] [employer] Other 11-22-2023 12:45-0500Systolic blood cjnxnzaf280 mm[Hg] Blas Bellamy Other [employer] Other 11-07-2023 09:04-0500Diastolic blood uijamckp55 mm[Hg] DO Charan Casey Work Phone: [facility]11-07-2023 09:04-0500 Heart rate76 /Dean Casey Work Phone: [facility]11-07-2023 09:04-0500 Respiratory rate16 /Dean Casey Work Phone: [facility]11-07-2023 09:04-0500 SaO2% (BldA) [Mass fraction]96 %DO Charan Casey Work Phone: [facility]11-07-2023 09:04-0500 Systolic blood cljnpiey507 mm[Hg]DO Charan Casey Work Phone: [facility]11-07-2023 07:01-0500 Body opqqde406.18 cmDO Charan Casey Work Phone: [facility]11-07-2023 07:01-0500 Body .59 kgDO Charan Casey Work Phone: [facility]10-17-2023 10:20-0400 Body lleqxi521.18 cmAbdul Sole Other [facility] [employer] Other 10-17-2023 10:20-0400Body mass index (BMI) [Ratio] 37.46 kg/y0Wtxxw Sole Other [employer] Other 10-17-2023 10:20-0400Body joicqwtbvws99.2 [degF]Elpidio Sole Other [employer] Other 10-17-2023 10:20-0400Body fxbsaf198.5 kgAbdul Sole [facility] 10-17-2023 10:20-0400Diastolic blood tywrsjuo34 mm[Hg] Elpidio [facility]ole [facility] 10-17-2023 10:20-0400Respiratory rate18 /minAbdul Sole Other [employer] Other 10-17-2023 10:20-6160ViK7% (BldA) [Mass fraction]99 % Elpidio Sole Other [employer] Other 10-17-2023 10:20-0400Systolic blood iiseqago145 mm[Hg] Elpidio Sole Other [employer] Other 10-10-2023 09:00-0400Diastolic blood cvnfbbya89 mm[Hg] DO Charan Casey Work Phone: [facility]10-10-2023 09:00-0400 Heart rate69 /Dean Casey Work Phone: [facility]10-10-2023 09:00-0400 Respiratory rate16 /Dean Casey Work Phone: [facility]10-10-2023 09:00-0400 SaO2% (BldA) [Mass fraction]96 %DO Charan Casey Work Phone: [facility]10-10-2023 09:00-0400 Systolic blood gksklkuo087 mm[Hg]DO Charan Casey Work Phone: [address] [place], [place] 1906110-10-2023 08:17-0400 Inhaled oxygen flow rate3 L/Dean Casey Work Phone: 1(655)[address]10-10-2023 07:21-0400 Body fctpus722.18 cmDO Charan Casey Work Phone: [facility]10-10-2023 07:21-0400 Body ksgusk189.86 kgDO Charan Casey Work Phone: [facility]09-18-2023 09:30-0400 Body .18 cmThomas Felter Other [employer] Other 09-18-2023 09:30-0400Body mass index (BMI) [Ratio] 38.06 kg/n7Awlxiw Felter Other [facility] [employer] Other 09-18-2023 09:30-0400Body xadceb131.22 kgThomas Felter Other [employer] Other 09-12-2023 09:20-0400Body fxkmez919.18 cmDale Chatterjee Other [employer] Other 09-12-2023 09:20-0400Body mass index (BMI) [Ratio] 38.06 kg/m2Thierno Chatterjee Other [employer] Other 09-12-2023 09:20-0400Body fmeieb547.22 kgThierno Chatterjee Other [employer] Other 09-12-2023 09:20-0400Diastolic blood neurmpib78 mm[Hg] Thierno Chatterjee Other [employer] Other 09-12-2023 09:20-0400Systolic blood vovzwsve263 mm[Hg] Thierno Chatterjee Other [employer] Other 09-06-2023 08:15-0400Body tfewgm697.18 cmCharan Casey Other [employer] Other 09-06-2023 08:15-0400Body mass index (BMI) [Ratio] 38.21 kg/a2VxqvyCharan Casey Other [employer] Other 09-06-2023 08:15-0400Body funpqa918.68 kgCharan Casey Other [employer] Other 09-06-2023 08:15-0400Diastolic blood nnckvucb67 mm[Hg] Charan Casey Other [employer] Other 09-06-2023 08:15-0400Respiratory rate18 /minCharan Casey Other [employer] Other 09-06-2023 08:15-2914PlS6% (BldA) [Mass fraction]95 % Charan Casey Other [employer] Other 09-06-2023 08:15-0400Systolic blood kduvxgny520 mm[Hg] Charan Casey Other [facility] [employer] Other 06-20-2023 12:30-0400Body zykvmz878.18 cmCharan Casey Other [facility] Other 06-20-2023 12:30-0400Diastolic blood edvewjuu34 mm[Hg] Charan Casey Other [facility] Other 06-20-2023 12:30-0400Respiratory rate18 /minCharan Casey Other [facility] Other 06-20-2023 12:30-7632QaY4% (BldA) [Mass fraction]97 % Charan Casey Other [facility] Other 06-20-2023 12:30-0400Systolic blood nacjxemh826 mm[Hg] Charan Casey Other [facility] Other 06-01-2023 10:17-0400Body figjvp439.18 cmCharan Casey Work Phone: 1(720) [phone]-Vmhzf [place] [facility] 250 DO Work Phone: 1(709) 605-864006-01-2023 10:17-0400Body mass index (BMI) [Ratio] Medical Reason Not DoneCharan Casey Work Phone: mp129-9765PJ-Sdnfp [place] [facility] 250 DO Work Phone: 1(120) 174-212506-01-2023 10:17-0400Diastolic blood obxzedjr79 mm[Hg] Charan Casey Work Phone: mp549-8085HJ-Yphpi [place] [facility] 250 DO Work Phone: 1(667) [phone] 10:17-0400Heart rate72 /minCharan Casey Work Phone: mp734-1556BI-Chjnd [place] [employer] 250 DO Work Phone: 1(802) [phone] 10:17-0400Systolic blood elkivkdu788 mm[Hg] Charan Casey Work Phone: mp523-8418OX-Jnzid [place] [employer] 250 DO Work Phone: 1(642) [phone] 15:30-0400Body qnapjj161.18 cmCharan Casey Other [facility] Other 05-02-2023 15:30-0400Diastolic blood druwzaie88 mm[Hg] Charan Casey Other [facility] Other 05-02-2023 15:30-0400Respiratory rate18 /minCharan Casey Other [facility] Other 05-02-2023 15:30-8576ZdX1% (BldA) [Mass fraction]98 % [facility] 05-02-2023 15:30-0400Systolic blood mm[Hg] Charan Casey Other [employer] Other 04-11-2023 15:40-0400Body fqlhuu629.18 cmAbdul Sole Other [facility] Other 04-11-2023 15:40-0400Diastolic blood mm[Hg] Elpidio Sole Other [employer] Other 04-11-2023 15:40-0400Respiratory rate16 /minAbdul Sole Other [facility] Other 04-11-2023 15:40-8241CsE0% (BldA) [Mass fraction]99 % Elpidio Sole Other [facility] Other 04-11-2023 15:40-0400Systolic blood ehbxbjth479 mm[Hg] Elpidio Sole Other [facility] Other 04-05-2023 15:00-0400Body hizkde779.18 cmChrjose Coco Other [employer] Other 04-05-2023 15:00-0400Body mass index (BMI) [Ratio] 37.43 kg/c8Ehrqmyfxfnf Coco Other [facility] [facility] Other 04-05-2023 15:00-0400Body ryivlr411.41 kgChristopher Coco Other [employer] Other 04-05-2023 15:00-0400Diastolic blood nbclirkv72 mm[Hg] Williamer Coco Other [employer] Other 04-05-2023 15:00-9107CxD7% (BldA) [Mass fraction]98 % Christopher Coco Other [employer] Other 04-05-2023 15:00-0400Systolic blood mm[Hg] Christopher Coco Other [facility] Other 10-26-2022 16:00-0400Body .18 cmAbdul Sole Other [employer] Other 10-26-2022 16:00-0400Body mass index (BMI) [Ratio] 37.37 kg/e5Oienj Sole Other [employer] Other 10-26-2022 16:00-0400Body hyvwtxkagak27.4 [degF]Elpidio Sole Other [employer] Other 10-26-2022 16:00-0400Body sduzuy040.23 kgAbdul Sole Other [employer] Other 10-26-2022 16:00-0400Diastolic blood cfnoqzox55 mm[Hg] Elpidio Sole Other [employer] Other 10-26-2022 16:00-0400Respiratory rate16 /minAbdul Sole Other [employer] Other 10-26-2022 16:00-9861SxH0% (BldA) [Mass fraction]98 % Elpidio Sole Other [employer] Other 10-26-2022 16:00-0400Systolic blood thagyyob885 mm[Hg] Elpidio Sole Other [employer] Other 10-04-2022 14:00-0400Body ummjhm318.18 cmCharan Casey Other [facility] Other 10-04-2022 14:00-0400Body mass index (BMI) [Ratio]37.9 kg/m9Xeypg Kuns Other [employer] [facility] Other 10-04-2022 14:00-0400Body aftlrn840.77 kgCharan Casey Other [employer] [facility] Other 10-04-2022 14:00-0400Diastolic blood kbyuhekp66 mm[Hg] Charan Casey Other [facility] Other 10-04-2022 14:00-0400Respiratory rate16 /minYeisonheather Casey Other [facility] Other 10-04-2022 14:00-7945IjS0% (BldA) [Mass fraction]97 % Charan Casey Other [facility] Other 10-04-2022 14:00-0400Systolic blood drbuhgsp702 mm[Hg] Charan Casey [facility] Other 08-28-2022 19:56-0400Body .18 cmDO Charan Casey Work Phone: [facility]08-28-2022 19:56-0400 Body vkkkvazqqng17.1 [degF]DO Charan Casey Work Phone: [facility]08-28-2022 19:56-0400 Body orwbas683.55 kgDO Charanheather Masseybryn Work Phone: [facility]08-28-2022 19:56-0400 Diastolic blood scrupapi81 mm[Hg]DO Charanheather Masseybryn Work Phone: [facility]08-28-2022 19:56-0400 Heart rate89 /minDO Charan Casey Work Phone: [facility]08-28-2022 19:56-0400 Respiratory rate20 /minDO Charan Casey Work Phone: [facility]08-28-2022 19:56-0400 SaO2% (BldA) [Mass fraction]98 %DO Charan Casey Work Phone: [facility]08-28-2022 19:56-0400 Systolic blood oneatvgc368 mm[Hg]DO Charan Casey Work Phone: [facility]06-09-2022 08:51-0400 Body ldjjyf164.18 cmCharan Casey Work Phone: 1(630) [phone]-Zsyej [place] [facility] 250 DO Work Phone: 1(147) 478-908106-09-2022 08:51-0400Body mass index (BMI) [Ratio] 38.06 kg/u3Zvdymheather Casey Work Phone: 1(894) [phone][facility] 250 DO Work Phone: 1(686) [phone] 08:51-0400Body surface area Derived from formula2.2 w0Wbzetheather Casey Work Phone: 1(141) [phone]-[facility]wdRed [facility] 250 DO Work Phone: 1(692) [phone] 08:51-0400Body yqoxrg719.22 kgCharan Dani Casey Work Phone: 1(812) [phone]-Xxelq [place] [facility] 250 DO Work Phone: 1(518) 710-687406-09-2022 08:51-0400Diastolic blood qwycaifo80 mm[Hg] Charan Dani Casey Work Phone: 1(984) [phone]-Litiy [place] [facility] 250 DO Work Phone: 1(353) [phone] 08:51-0400Heart rate72 /minCharan Louise Jacinto Work Phone: 1(256) [phone]-Feubk [place] [facility] 250 DO Work Phone: 1(456) 304-752606-09-2022 08:51-0400Systolic blood bpfsgaij037 mm[Hg] Charan Louise Jacinto Work Phone: 1(801) [phone][facility] 250 DO Work Phone: 1(445) 707-187206-01-2022 17:00-0400Body ektgba223.18 cmChristcalderon Coco Other [facility] Other 06-01-2022 17:00-0400Body mass index (BMI) [Ratio] 38.52 kg/k1Wutzldhlrfj Coco Other [facility] Other 06-01-2022 17:00-0400Body qqbcpiizknu90.1 [degF] Christbryoner Coco Other [employer] Other 06-01-2022 17:00-0400Body wpigla780.59 kgChristopher Coco Other [employer] Other 06-01-2022 17:00-0400Diastolic blood wltefaom30 mm[Hg] Christbryoner Coco Other [employer] Other 06-01-2022 17:00-2675SyF3% (BldA) [Mass fraction]97 % Christopher Coco Other [employer] Other 06-01-2022 17:00-0400Systolic blood xbzskobz031 mm[Hg] Christbryoner Coco Other [employer] Other 05-16-2022 11:30-0400Body clduuo851.18 cmCharan Casey Other [employer] Other 05-16-2022 11:30-0400Body mass index (BMI) [Ratio] 38.52 kg/m7FlrirCharan Casey Other [employer] Other 05-16-2022 11:30-0400Body irwqpe085.59 kgCharan Casey Other [employer] Other 05-16-2022 11:30-0400Diastolic blood hxrogusb79 mm[Hg] Charan Casey Other [employer] Other 05-16-2022 11:30-0400Respiratory rate16 /minCharan Casey Other [employer] Other 05-16-2022 11:30-7665WpX8% (BldA) [Mass fraction]99 % Charan Casey Other [employer] Other 05-16-2022 11:30-0400Systolic blood gouvkstg503 mm[Hg] Charan Casey Other [employer] Other 03-24-2022 17:00-0400Body mass index (BMI) [Ratio] 38.56 kg/j2Pqjxo Sole Other [employer] Other 03-24-2022 17:00-0400Body hhcbnmbzusl82.2 [degF]Elpidio Sole Other [employer] Other 03-24-2022 17:00-0400Body ehfdrm934.68 kgAbdul Sole Other [employer] Other 03-24-2022 17:00-0400Diastolic blood mzoeewiw24 mm[Hg] [facility]pidio [facility]ole [facility] Other 03-24-2022 17:00-0400Respiratory rate18 /minAbdul Sole Other [facility] Other 03-24-2022 17:00-3439FtQ0% (BldA) [Mass fraction]98 % Elpidio Sole Other [facility] Other 03-24-2022 17:00-0400Systolic blood uzijlygm908 mm[Hg] Elpidio Sole [facility] Other 03-24-2022 12:28-0400Body yfhlyt358.18 cmCharan Dani Casey Work Phone: mp192-4589QA-Rskoe [place] [facility] 250 DO Work Phone: 1(286) [phone] 12:28-0400Body mass index (BMI) [Ratio] 38.37 kg/o6Jjcfc aDni Masseybryn Work Phone: mp685-7875XR-Iiuvd [place] [facility] 250 DO Work Phone: 1(510) [phone] 12:28-0400Body surface area Derived from formula2.2 h9Ombgj Dani Casey Work Phone: mp621-0437EZ-Vuvpy [place] [facility] 250 DO Work Phone: 1(335) [phone] 12:28-0400Body qsikzz102.13 kgCharan Casey Work Phone: mp681-6708FR-Ogxrp [place] [facility] 250 DO Work Phone: 1(849) [phone] 12:28-0400Diastolic blood mm[Hg] Charan Casey Work Phone: mp255-6688PV-Hfwfn [place] [facility] 250 DO Work Phone: 1(490) [phone] 12:28-0400Heart rate72 /minCharan Casey Work Phone: mp684-6513IT-Zwiua [place] [facility] 250 DO Work Phone: 1(100) [phone] 12:28-0400Systolic blood vhimmgxw886 mm[Hg] Charan Casey Work Phone: mp566-1985CF-Nbmcn [place] [facility] 250 DO Work Phone: 1(393) 569-558203-11-2022 09:45-0500Body pfyhxq473.18 cmCharan Casey Other [employer] Other 03-11-2022 09:45-0500Body mass index (BMI) [Ratio] 38.27 kg/g8CcmkqCharan Casey Other [employer] Other 03-11-2022 09:45-0500Body cvupwd106.86 kgCharan Casey Other [employer] Other 03-11-2022 09:45-0500Diastolic blood nhevofim22 mm[Hg] Charan Casey Other [employer] Other 03-11-2022 09:45-0500Respiratory rate18 /minCharan Casey Other [employer] Other 03-11-2022 09:45-0178OmS8% (BldA) [Mass fraction]95 % Charan Casey Other [employer] Other 03-11-2022 09:45-0500Systolic blood vfuzvzba765 mm[Hg] Charan Casey Other [employer] Other 02-01-2022 17:20-0500Body oankbn869.18 cmDayudi Chatterjee Other [employer] Other 02-01-2022 17:20-0500Body mass index (BMI) [Ratio] 38.84 kg/m2Dale Chatterjee Other [employer] Other 02-01-2022 17:20-0500Body tergkk693.49 kgDale Chatterjee Other [employer] Other 01-04-2022 15:00-0500Body aosdvx823.18 cmYeisonheather Casey Other [employer] Other 11-02-2021 17:15-0400Body kbkjka019.18 cmTjeb Ortiz Other [facility] Other Encounters Encounter DateEncounter TypeCare ProviderFacilityStart: 10-11-2025 End: 33-49-0167Bdnevuezl encounterAlllucia Munroe DO Work Phone: [facility] 230Comment on above: Medication QuestionStart: 07-27-2025 End: 63-10-6803Ngmdym flowsheetShaina Munroe DO Work Phone: [facility] 230Start: 07-27-2025 End: 03-92-7892Dteulc flowsheetShaina Munroe DO Work Phone: [facility] 230Start: 07-27-2025 End: 42-20-6595Muxeyb outpatient visit 25 minutesAlllucia Munroe DO Work Phone: [facility] 230Comment on above:Type 2 diabetes [...] index (BMI) of35.0 to 35.9 in adult ([facility])Start: 07-27-2025 End: 46-69-3216jkwcqirqqeUYRQUOF M PETZNICKNot AvailableStart: 07-12-2025 End: 54-70-4762wdrksacuzoPonze Kuns DO Work Phone: [facility] Work Phone: Start: 07-12-2025 End: 19-77-0106Rodekfc encounter procedureCharan Louise DO-[facility] Work Phone: Start: 23-35-5701Ton-patient / Non-visitMojunito Lyons MD-[facility] Work Phone: Start: 21-68-6941Uaq-patient / Non-visitMojunito Lyons MD-[facility] Work Phone: Start: 28-15-2384Bef-patient / Non-visitGustavo Cuevas DO -[facility] Work Phone: Start: 06-21-2025 End: 77-71-5456iujpagfgrsAdzbx Kuns DO Work Phone: [facility] Work Phone: Start: 06-21-2025 End: 99-58-2974Mkzrrks encounter procedureBlas Louise MD-[facility] Work Phone: Start: 91-94-6990Uhl-patient / Non-visitBlas Louise MD-[facility] Work Phone: Start: 06-14-2025 End: 74-86-5375nlgwnzasroQsctq Kuns DO Work Phone: [facility] Work Phone: Start: 06-14-2025 End: 70-54-2248Icfjhvb encounter procedureBlas Louise MD-[facility] Work Phone: Start: 06-05-2025 End: 27-07-3556Ekjrfup encounter procedurePelizbeth [facility] CtrStart: 06-05-2025 End: 62-07-7831bclmuqzwvfTexso Kuns DO Work Phone: [facility] Work Phone: Start: 05-31-2025 End: 79-67-2606kwnflzkzfpOsnah Kuns DO Work Phone: [facility] Work Phone: Start: 05-31-2025 End: 67-49-9159Luaodxj encounter procedureBlas Louise MD-[facility] Work Phone: Start: 05-15-2025 End: 89-86-1347Nepkhp outpatient visit 25 minutesAlllucia Munroe DO Work Phone: [facility] 230Comment on above:Type 2 diabetes mellitus with [...] index (BMI) of35.0 to 35.9 in adult ([facility])Start: 05-15-2025 End: 18-04-9168icmwpvxepwBYXYCTW M PETZNICKNot AvailableStart: 03-06-2025 End: 74-71-4116ciqlwousiaCpwdu Kuns DO Work Phone: [facility] Work Phone: Start: 03-06-2025 End: 98-35-8516Mpbmgse encounter procedureBryan Kuns DO Work Phone: [facility] Family [facility] Work Phone: Start: 02-16-2025 End: 63-02-8475gbfavhckrxPylac Kuns DO Work Phone: [facility] Work Phone: Start: 02-16-2025 End: 62-79-2825Jcqbxej encounter procedureBryheather Masseys DO Work Phone: [facility] Work Phone: Start: 02-14-2025 End: 63-64-7555drtlithkzcYQCPJDXAri William AvailableStart: 89-32-4256Shg- patient / Non-visitBryheather Masseys DO Work Phone: [facility] Work Phone: Start: 02-01-2025 End: 03-36-9134phgxiazbssNzjez Kuns DO Work Phone: [facility] Work Phone: Start: 02-01-2025 End: 48-78-4778Uqlddzm encounter procedureBryheather Masseys DO Work Phone: [facility] Work Phone: Start: 01-31-2025 End: 61-80-4509rpwapdnxeqWnjno Kuns DO Work Phone: [facility] Work Phone: Start: 01-31-2025 End: 88-14-3247Xnmgbcjdza RecurringBryan Kuns DO Work Phone: [facility]-Physical Therapy [place]Start: 70-79-0453Gcwtisqfoa RecurringBryan Kuns DO Work Phone: [facility]-Physical Therapy [place]Start: 01-26-2025 End: 66-59-7357iuiayhaiyaLjufd Kuns DO Work Phone: [facility] Work Phone: Start: 01-26-2025 End: 39-68-7330Qboflgd encounter procedureBryheather Masseys DO Work Phone: [facility] Work Phone: Start: 08-13-0325Augcjvxise RecurringBryan Brysons DO Work Phone: [facility]-Physical Therapy [place]Start: 01-23-2025 End: 14-00-6996Tcwwqsc encounter procedureBryheather Brysons DO Work Phone: [facility]-MRI [address] Work Phone: Start: 01-23-2025 End: 88-27-1589kihiashvklStyhf Kuns DO Work Phone: [facility] Work Phone: Start: 01-18-2025 End: 80-10-7370rdhpslprxiCvowl Kuns DO Work Phone: [facility] Work Phone: Start: 01-18-2025 End: 93-49-6561Fnypnvv encounter procedureYeisonheather Brysons DO Work Phone: [facility] Work Phone: Start: 05-14-7375Sbspmmtbpm RecurringCharan Masseys DO Work Phone: [facility]-Physical Therapy [place]Start: 01-09-2025 End: 16-16-4664Lftvgsuit encounterShaina Munroe DO Work Phone: [facility] 230Start: 62-76-5864Uio-patient / Non-visitBryheather Casey DO Work Phone: [facility] Work Phone: Start: 01-09-2025 End: 12-25-0000qekjezniklJalcg Brysons DO Work Phone: [facility] Work Phone: Start: 01-09-2025 End: 79-43-7756Dnrvrog encounter procedureBryan Brysons DO Work Phone: [facility] Group[facility] Work Phone: Start: 55-71-8562Xpeixqhwwg RecurringBryan Brysons DO Work Phone: [facility]-Physical Therapy [place]Start: 12-29-2024 End: 25-68-0462ylnrzvayqrZeyqu Kuns DO Work Phone: [facility] Work Phone: Start: 12-29-2024 End: 09-26-3070Bbypiiv encounter procedureBryan Brysons DO Work Phone: [facility] Work Phone: Start: 12-26-2024 End: 33-80-0088bjngabqcmlZzaeo Kuns DO Work Phone: [facility] Work Phone: Start: 12-26-2024 End: 65-62-4574Gsvsrmj encounter procedureBryan Brysons DO Work Phone: [facility] Physician [facility] Work Phone: Start: 17-63-2511Bdpixbmbet RecurringBryan Brysons DO Work Phone: [facility]-Physical Therapy [place]Start: 12-09-2024 End: 39-06-8031facihwigdvKeszi Kuns DO Work Phone: [facility] Work Phone: Start: 12-09-2024 End: 44-50-7672Aerdksq encounter procedureCharan Masseybryn DO Work Phone: [facility] Work Phone: Start: 12-08-2024 End: 02-16-4894Iokvaiz encounter procedureCharan Casey DO Work Phone: [facility] CtrStart: 12-08-2024 End: 39-06-8335ojyksztkwtOgvwr Kuns DO Work Phone: [facility] Work Phone: Start: 58-16-2965Zxynaynvsg RecurringBryheather Casey DO Work Phone: [facility]-Physical Therapy [place]Start: 09-09-4686Dhw-patient / Non-visitYeisonheather Casey DO Work Phone: [facility] Work Phone: Start: 2024 End: 43-52-4797Ixourkgka to same day surgery centerCharan Casey DO Work Phone: [facility]-Digestive Health Work Phone: Start: 2024 End: 85-45-5403wnzvebbieqLminyu FelterFacility:[facility] Start: 10-25-2024 End: 69-74-8035Jiheoyc encounter procedureCharan Masseybryn DO Work Phone: [facility] Work Phone: Start: 10-25-2024 End: 30-44-9380wyzhfiagzmKngxw A BaileyFacility:[facility]art: 10-19-2024 End: 70-25-1075apdckdxexxZabqf Kuns DO Work Phone: [facility] Work Phone: Start: 10-19-2024 End: 33-71-1358Djmioup encounter procedureCharan Casey DO Work Phone: [facility] Work Phone: Start: 10-17-2024 End: 91-20-9132Ymbnoq outpatient visit 25 minutesAlllucia Carmen Acevessebastian DO Work Phone: [facility] 230Comment on above:Type 2 diabetes [...] to 39.9 in adult (CMS/HCC)Start: 10-17-2024 End: 12-14-2162iuhiwscydqNLQONMV Carmen MUNROENot AvailableStart: 33-90-7974Ibu- patient / Non-visitDO Charan Casey Work Phone: [facility] Work Phone: Start: 09-20-2024 End: 54-61-6228Drjmkxynv to same day surgery centerDO Charan Casey Work Phone: [facility]-Dig[facility]ive [facility] Work Phone: Start: 09-20-2024 End: 09-52-6750urqahhthgpAP Charan Casey Work Phone: [facility] Work Phone: Start: 54-30-5387Gkp-patient / Non-visitDO Charan Casey Work Phone: [facility] [place] Work Phone: Start: 09-12-2024 End: 52-86-1783wyidgytisxVT Charan Casey Work Phone: [facility] Work Phone: Start: 09-12-2024 End: 32-27-0354Kigiizi encounter procedureDO Charan Casey Work Phone: [facility] Work Phone: Start: 09-07-2024 End: 95-98-8864Kipiiyv encounter procedureDO Charan Casey Work Phone: [facility] Work Phone: Start: 09-07-2024 End: 66-75-6413uqvclcvknsES Bryan Kuns Work Phone: [facility] Work Phone: Start: 09-02-2024 End: 41-59-7406nrwpgdbsdcCqkqw KunsFacility:[facility] Start: 58-32-3643Tatrcjxbcp RecurringDO Charan Casey Work Phone: [facility]-Physical Therapy [place]Start: 08-25-2024 End: 33-51-8114Yvsrrl outpatient visit 25 minutesRosalinda Torres MD Work Phone: uh [facility] on above:Coronary artery disease, unspecified vessel or lesion type, unspecified whether angina present, unsp ecified whether eek or transplanted heart; Elevated coronary artery calcium [...] unspecified whether serious comorbidity presentStart: 06-13-2024 End: 68-34-9166dodxcurlmrBK Bryan Kuns Work Phone: [facility] Work Phone: Start: 06-13-2024 End: 62-43-6516Daviqwv encounter procedureDO Charan Casey Work Phone: [facility] Work Phone: Start: 06-08-2024 End: 38-97-7462tyopijfrtiQF Charan Casey Work Phone: [facility] Work Phone: Start: 06-08-2024 End: 18-18-8497Ifptyai encounter procedureDO Charan Casey Work Phone: [facility] Sleep Lab Work Phone: Start: 55-61-0214Inp-patient / Non-visitDO Charan Casey Work Phone: [facility] Work Phone: Start: 05-31-2024 End: 34-03-6825Pximpmqcy to same day surgery centerDO Charan Casey Work Phone: [facility]ive [facility] Work Phone: Start: 05-31-2024 End: 03-87-1052qqsdudehocZI Charan Casey Work Phone: [facility] Work Phone: Start: 05-23-2024 End: 12-18-9525rncxqjssmuIF Charan Casey Work Phone: [facility] Work Phone: Start: 05-23-2024 End: 40-54-1976Jbnrjtf encounter procedureDO Charan Casey Work Phone: [facility] Pain Management [facility] Work Phone: Start: 73-29-7976Oaj-patient / Non-visitDO Charan Casey Work Phone: [facility] [place] Work Phone: Start: 68-91-4508Qlj-patient / Non-visitDO Charan Casey Work Phone: [facility] [place] Work Phone: Start: 41-81-0501Hpi-patient / Non-visitDO Charan Casey Work Phone: [facility] Work Phone: Start: 03-17-2024 End: 44-30-8361wgrsqmuwidLO Charan Casey Work Phone: [facility] Work Phone: Start: 03-17-2024 End: 50-60-5304Lifivlv encounter procedureDO Charan Casey Work Phone: [facility] Pain Management [facility] Work Phone: Start: 03-05-2024 End: 76-36-6860edmdzyyuwlZT Charan Casey Work Phone: [facility] Work Phone: Start: 03-05-2024 End: 24-63-7841Znjoonf encounter procedureDO Charan Casey Work Phone: [facility] Main [place] Work Phone: Start: 03-01-2024 End: 27-44-1427rpoberlzfyRD Charan Casey Work Phone: [facility] Work Phone: Start: 03-01-2024 End: 34-55-1383Uivbhbc encounter procedureDO Charan Casey Work Phone: [facility] Nephrology Work Phone: Start: 02-29-2024 End: 83-24-6174rthxdfajbxUP Charan Casey Work Phone: [facility] Work Phone: Start: 02-29-2024 End: 63-73-2942Ypokysf encounter procedureDO Charan Casey Work Phone: [facility]: 42-83-2496Dvh-patient / Non-visitDO Charan Casey Work Phone: [facility] Work Phone: Start: 02-22-2024 End: 60-25-3027uxbmlsdylwOWQJGU M [facility] AmbulatoryStart: 02-22-2024 End: 49-93-4216Camxpi outpatient visit 25 minutesRosalinda Torres MD Work Phone: [facility] on above:Coronary artery disease, unspecified vessel or lesion type, unspecified whether angina present, unsp ecified whether eek or transplanted heart (Primary Dx); Essential hypertension; 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; Hyperlipidemia, unspecified hyperlipidemia type; Obstructive sleep apnea syndrome; Class 2 obesity with body mass index (BMI) of 37.0 to 37.9 in adult, unspecified obesity type, unspecified whether serious comorbidity present; Insulin-requiring or dependent type II diabetes mellitus ([facility])Start: 86-98-4846Ung-patient / Non-visitDO Charan Casey Work Phone: [facility] Work Phone: Start: 47-08-2053Etn-patient / Non-visitDO Charan Casey Work Phone: [facility] Work Phone: Start: 02-04-2024 End: 41-52-5668Ssokjar encounter procedureDO Charan Casey Work Phone: [facility] [place] Work Phone: Start: 01-11-2024 End: 56-10-3630hfebyivzrsPbhbp Kuns Other [employer] Other Start: 43-19-5037Wmvkdmhwe encounterCharan Waters [facility] [place]Start: 12-31-2023 End: 04-45-4858fyebemlguoBlhnb Kuns Other [employer] Other Start: 25-53-1531Rukfhxpfe encounterBryheather Waters [facility] [place]Start: 12-30-2023 End: 67-38-4515Pugvtgb encounter procedureDO Charan Casey Work Phone: [facility]trStart: 12-30-2023 End: 35-45-7406pgnttywjhkNY Charan Casey Work Phone: [facility] Work Phone: Start: 83-91-9229Krascm outpatient visit 15 minutes Charan Waters [facility] [place]Start: 12-30-2023 End: 65-77-1907Dgxtocm encounter procedureDO Charan Casey Work Phone: [facility]-Start: 11-26-2023 End: 25-53-5618tsrdnnebaqES Charan Casey Work Phone: [facility] Work Phone: Start: 11-26-2023 End: 46-81-2105Wntmvok encounter procedureDO Charan Casey Work Phone: [facility]-Lab [facility] CenterStart: 11-06-2023 End: 50-47-6380rjixosfetoBzsgb Kuns Other [employer] Other Start: 43-19-3359Efgclrcmb encounterCharan Waters Referral CoordinatorStart: 89-49-7484Vrtwxcee care educationDaUniversity Hospitals [facility] Care ClinicStart: 43-85-5070Auxxsoebr by computer linkDawn [facility] ClinicStart: 11-05-2023 End: 33-18-6846aovhoftoogZV Charan Casey Work Phone: [employer] Other Start: 11-05-2023 End: 88-29-6085Qrddevsqev RecurringDO Charan Casey Work Phone: [facility] Work Phone: Start: 38-07-2943Yuhluogygm RecurringDO Charan Casey Work Phone: [facility] Work Phone: Start: 11-03-2023 End: 92-56-8978vuswownbqiWbtdu Kuns Other [employer] Other Start: 35-07-9694Nhauyosyh encounterCharan Waters Family [facility] [place]Start: 10-28-2023 End: 01-87-3326fcqxhjhhmvXibdul Felter Other [employer] Other Start: 24-29-2974Ckphsp outpatient visit 15 minutes Blas Berger [facility] [place]Start: 85-22-1093Eloratawz encounter Blas FelterFPG Pain Management [place] CreekStart: 10-28-2023 End: 96-44-3452Smkyxgo encounter procedure Charan Casey Work Phone: [facility] [place] Work Phone: Start: 10-21-2023 End: 00-57-0177kvryyuxlszOioxai [place] Other [employer] Other Start: 54-12-3329Mvrxot outpatient visit 15 minutes [facility]bron RoadStart: 10-21-2023 End: 98-65-1308Hndenmo encounter procedureDO Charan Casey Work Phone: [facility] [place] Work Phone: Start: 10-19-2023 End: 27-24-2183fgebamfkkkIsnfpq Felter Other [employer] Other Start: 35-64-3253Irdheuacr encounterThomas FelterFPG Pain Management [place] CreekStart: 10-07-2023 End: 63-08-5721vngajstyndJulhl Kuns Other [employer] Other Start: 76-17-5276Uoaxkpxmv encounterBryheather CaseyFPG Family Medicine [place]Start: 10-06-2023 End: 88-62-2204Punhjutpf to same day surgery centerDO Charan Casey Work Phone: [facility]-Digestive Health Work Phone: Start: 10-06-2023 End: 76-58-2865wdxykfnnxlXI Bryan Kuns Work Phone: [facility] Work Phone: Start: 09-23-2023 End: 41-15-1576ydygsdpfpgNrcalk Felter Other [employer] Other Start: 44-59-4106Lmtcoo outpatient visit 15 minutes Blas FelterFPG Pain Management [place]Start: 09-15-2023 End: 51-89-1442xmfjvdxolzObpwz Sole Other [employer] Other Start: 19-03-9818Sjzqss outpatient visit 25 minutes Elpidio QadirFPG NephrologyStart: 09-14-2023 End: 50-51-9182bgdynrduzzBK Bryan Kuns Work Phone: [facility] Work Phone: Start: 09-14-2023 End: 73-37-9636Kdxanri encounter procedureDO Charan Casey Work Phone: [facility]-Lab [facility] CenterStart: 09-08-2023(Procedure) ShortThomas FelterGuernsey Memorial Hospital OutPtStart: 09-08-2023 End: 89-04-0933Lgsbvievl to same day surgery centerDO Charan Casey Work Phone: [facility]-Digestive [facility] Work Phone: Start: 09-08-2023 End: 05-08-4762ensrcklyuwGE Charan Casey Work Phone: [facility] Work Phone: Start: 08-25-2023 End: 19-92-0383xpulnnwmrzBego Asaad Other [employer] Other Start: 54-15-2747Exgcigruj encounterImasonia TreadwellFPG Referral CoordinatorStart: 08-18-2023 End: 17-97-4240lzyvjlxgfqWdnvr Kuns Other [employer] Other Start: 74-65-8540Jheuaqial encounterCharan Waters Family [facility] [place]Start: 08-17-2023 End: 33-39-5121plwubnppkiPfqacj Felter Other [employer] Other Start: 58-46-7945Hdfoyi outpatient visit 25 minutes Blas Berger [facility] [place]Start: 08-17-2023 End: 97-73-7338Rovvphz encounter procedureDO Charan Casey Work Phone: [facility] Ortho Start: 52-44-3090Ovmnnz outpatient visit 15 minutesDale BraunStarr Regional [facility] Center NeurosurgeryStart: 08-11-2023 End: 99-35-8495zilndeptnfMP Charan Casey Work Phone: [facility] Work Phone: Start: 08-11-2023 End: 07-20-8566Njnjoql encounter procedureDO Charan Casey Work Phone: [facility]-X[facility]Ray [facility] CtrStart: 08-05-2023 End: 51-73-0671kappnadqfwQngjx Kuns Other [employer] Other Start: 53-71-4166Gpdbao outpatient visit 25 minutes Charan Waters [facility] [place]Start: 07-02-2023 End: 79-78-5610jbvoubihvsLpkzi Kuns Other [employer] Other Start: 97-68-7255Uaczubihf encounterBryheather Waters Family Medicine [place]Start: 06-08-2023 End: 11-29-6977glfhhnpbzyAW Charan Masseybryn Work Phone: [facility] Work Phone: Start: 06-08-2023 End: 33-74-6008Lrqesklixe RecurringDO Charan Casey Work Phone: [facility]-Physical Therapy [facility] Centertart: 05-28-2023 End: 87-01-2244uratxypovzFcgq Fitt Other [employer] Other Start: 33-24-3010Glckkohw care educationDawn [facility] Community Hospitaltart: 31-82-7405Uqbztkzsag RecurringDO Charan Casey Work Phone: [facility] Work Phone: Start: 27-31-4127Wjormy outpatient visit 25 minutes Charan Waters [facility] [place]Start: 05-19-2023 End: 15-55-9575jzwznpojioYM Charan Casey Work Phone: [facility] Work Phone: Start: 05-19-2023 End: 81-53-5017Jymtaur encounter procedureDO Charan Casey Work Phone: [facility]-X[facility]Ray [facility] CtrStart: 05-05-2023 End: 18-80-4886fmqenbfoenBvqdh Kuns Other [employer] Other Start: 12-89-1476Cgzropams encounterBryheather DelarosaG Family Medicine [place]Start: 67-05-2748Wzgvrx outpatient visit 25 minutesBryheather Casey Work Phone: [phone]-[address] Work Phone: Start: 36-36-3715jdyjmdtauwYbDerek Casey Facility:[id number]: 04-13-2023 End: 72-10-0090tcxcholuttFUKPX D [facility]INGTONFacility:H0Oltov: 04-07-2023 End: 64-71-3378itbpslrjdoWVLGDM R [facility]OSPITALFacility:R0Xzvsk: 66-44-2396Rakrcvzho for preprocedural laboratory examinationPETER D [facility] Start: 04-06-2023 End: 71-51-0235ypugtrhrxfQdqqe Kuns Other [employer] Other Start: 79-41-4535Vrvfzqeia encounterBryheather DelarosaG Family Medicine [place]Start: 90-79-4484Xajqhr outpatient visit 25 minutesCharan DelarosaG Family Medicine [place]Start: 03-31-2023 End: 69-39-2100vxxkjnqqimROFAJ D [facility] [employer] Other Start: 03-31-2023 End: 40-43-0870Iarpizeff for preprocedural laboratory examinationPETER Sonia CASTROFacility:C2Kdozl: 03-26-2023 End: 36-45-1282tbxgrnlejfXyqnc Kuns Other [facility] [employer] Other Start: 94-45-0717Nthvrkyan encounterCharan DelarosaG Family Medicine [place]Start: 03-23-2023 End: 28-70-2519japfffsgvlTUFBOG R ZIEBERFacility:O8Obyid: 03-10-2023 End: 59-49-7471icuhdnaqbyCjmbn Sole Other [facility] [employer] Other Start: 77-33-5829Wcmpgl outpatient visit 25 minutes Elpidio QadirFPG NephrologyStart: 03-06-2023 End: 09-71-8483vljmpjltsqMI Charan Casey Work Phone: [facility] Work Phone: Start: 03-06-2023 End: 92-59-5885Mkdnumi encounter procedureDO Charan Casey Work Phone: [facility]-Lab [facility] Centertart: 27-04-7098Hsocfq outpatient visit 15 minutesChristopher [facility] SouthStart: 29-45-0921Rzdxsmsmu encounterCharan ODOM Family [facility] [place]Start: 03-04-2023 End: 24-18-9944dexxppczbbSA Charan Casey Work Phone: [employer] Other Start: 03-04-2023 End: 68-69-6674Fdmjljk encounter procedureDO Charan Casey Work Phone: [facility]-Sleep Lab Work Phone: Start: 03-03-2023 End: 13-21-7941ksowjeabgmLTSKPK R ZIEBERFacility:O4Zuevn: 02-17-2023 End: 05-71-4515ologwfpgidFYTZD V WESTFacility:W1Nydcu: 02-16-2023 End: 10-67-4040pczoapyzfxYysaw Kuns Other [employer] Other Start: 65-51-6670Jucldxruc encounterBryheather DelarosaG Family Medicine [place]Start: 02-05-2023 End: 12-78-3072fxishfyfbfWtvme Kuns Other [facility] [employer] Other Start: 68-69-6851Scadymxgl encounterBryheather Waters Family [facility] [place]Start: 02-03-2023 End: 03-91-3897hwjnkpuiwzXNCFN V WESTFacility:C8Nlver: 01-27-2023 End: 62-33-2442Eyrhvpi encounter procedureDO Charan Casey Work Phone: [facility] Work Phone: Start: 01-27-2023 End: 95-28-2677kwsihqwbggFD Bryan Kuns Work Phone: [facility] Work Phone: Start: 83-47-3101Vnfvba Injection one Vaccine (Admin Chg)[facility] Coordinated Care ClinicStart: 01-20-2023 End: 41-92-5165ixvjeltmarWWIOOK R ZIEBERFacility:V3Pcofk: 01-19-2023 End: 12-04-8893vxcxoertioFnyyq Kuns Other [facility] [employer] Other Start: 01-06-2846Grfdqzsxv encounterYeisonheather DelarosaG Family Medicine [place]Start: 12-29-2022 End: 51-18-8284psaexgejuqITPPKA R ZIEBERFacility:W9Nkqdb: 60-38-7344Xouyautdv for preprocedural cardiovascular examinationPETER D [facility] HospitalStart: 92-22-7826Gnubidzus for preprocedural laboratory examinationPETER D [facility] HospitalStart: 12-23-2022 End: 13-57-2505llajuiosalCIBRH D [facility]INGTONFacility:C9Pvnzk: 12-23-2022 End: 19-69-3031Yielfigwc for preprocedural cardiovascular examinationPETER D [facility]INGTONFacility:Y8Heojw: 11-26-2022 End: 95-21-1677qisdujcaduPTEXO V WESTFacility:A7Nhjdo: 11-12-2022 End: 67-66-9334lgulfheficCKNOOX R SHAKIRAERFacility:T3Upauw: 63-30-1417ozfawqtbkj Dr. Charan CaseyFacility:[id number]: 10-28-2022([facility]) FCC Injection Eliud [facility]iaProv[facility] Coordinated Care ClinicStart: 10-28-2022 End: 83-11-4592kjeqfktunvNP Bryan Kuns Work Phone: [facility] Work Phone: Start: 10-28-2022 End: 61-21-8116Gwrmzar encounter procedureDO Charan Casey Work Phone: [facility] for Coordinated CareStart: 10-16-2022([facility] C Vac) [facility] Covid VaccineDaSearcy Hospital Coordinated Care ClinicStart: 10-16-2022([facility]) [facility] InjectionDawn [facility] Coordinated Care ClinicStart: 84-13-4862Qolvtghlr encounterAbdul Sole [facility] NephrologyStart: 10-16-2022 End: 14-28-6637vfeehrobnuQL Bryan Kuns Work Phone: [employer] Other Start: 10-16-2022 End: 52-28-3745Kbgcfka encounter procedureDO Charan Casey Work Phone: [facility]-Center for Coordinated CareStart: 10-15-2022 End: 71-00-0677djyrbbfjbdJC Charan Casey Work Phone: [facility] Work Phone: Start: 10-15-2022 End: 24-95-1761Sfzectq encounter procedureDO Charan Casey Work Phone: [facility]-MRI Str[address] RdStart: 10-13-2022 End: 35-71-9952ndkknpsldmZT Charan Casey Work Phone: [facility] Work Phone: Start: 10-13-2022 End: 65-90-1751Eodbbij encounter procedureDO Charan Casey Work Phone: [facility]-MRI [address] RdStart: 09-24-2022 End: 11-31-7169htnoffxlbsXlkxp Sole Other [employer] Other Start: 71-26-9419Gzokwr outpatient visit 25 minutes Elpidiorohan [facility] BelfairStart: 09-02-2022 End: 58-42-7481esofhubejaMosif Kuns Other [employer] Other Start: 20-25-0847Annkit outpatient visit 25 minutes Charan Waters [facility] [place]Start: 08-13-2022 End: 81-27-3425Igrwtqz encounter procedureDO Charan Casey Work Phone: [facility]-Lab [facility] Centertart: 08-07-2022 End: 33-24-4727heuqakzjzsNaipd Kuns Other [employer] Other Start: 51-07-3845Dsqqllzja encounterCharan Waters [facility] [place]Start: 07-27-2022 End: 23-67-0010Ymfnuxhiq department patient visitDO Charan Casey Work Phone: [facility]-Emergency RoomStart: 07-16-2022 End: 75-17-1941jnxiplwnhcOaqsi Kuns Other [facility] [employer] Other Start: 20-47-2375Htrqfaqtv encounterBryheather Waters [facility] [place]Start: 07-02-2022 End: 60-87-5216wltalfzwyeBrwrk Kuns Other [facility] [employer] Other Start: 32-54-2736Vnuobjylh encounterCharan DelarosaG Family Medicine [place]Start: 49-33-6209Gpuozf outpatient visit 25 minutesCharan Casey Work Phone: [phone]-IijzdCook Hospital 250 DO Work Phone: Start: 04-30-2022 End: 23-25-2669cwcezbdckrKwhhbovusno Coco Other [facility] [employer] Other Start: 26-84-1476Zxmuwk outpatient visit 10 minutes Federico SepulvedaRegional [facility] Center Ctr SouthStart: 04-14-2022 End: 38-84-8156pvphdbetkoDgldc Kuns Other [facility] [employer] Other Start: 95-93-1937Liihnv outpatient visit 25 minutes Charan Waters [facility] [place]Start: 04-07-2022 End: 27-44-6269imurnvovqzWggax Kuns Other [facility] [employer] Other Start: 47-26-4039Csptwwdan encounterCharan Waters [facility] [place]Start: 04-02-2022 End: 34-56-9899zsqvjpzstrOpyrw Kuns Other [facility] [employer] Other Start: 67-53-4386Cwqenfqhn encounterCharan WashingtonG Family Medicine [place]Start: 03-31-2022 End: 93-30-6567yfbhtvvrwuIxljz Kuns Other [facility] [employer] Other Start: 62-22-0175Jklvmqzje encounterBryheather WashingtonG Family Medicine [place]Start: 42-64-1448MUMXMYQXI, Provider: Rosalinda Torres, Status: Pen, Time: 1:00 PMCharan Masseys Work Phone: [phone]-AkwjeCook Hospital 250 DO Work Phone: Start: 44-77-6184Vrgqh UpdateCharan Louise Kuns Work Phone: [phone]-EisqaSt. Luke'S HospitalPhoenix 250 DO Work Phone: Start: 03-13-2022 End: 29-00-2987vrukhkmkexHpemk Kuns Other [facility] [employer] Other Start: 11-90-4969Btaepyaau encounterCharan WashingtonG Family Medicine [place]Start: 73-90-5850Qsujr UpdateCharan P Kuns Work Phone: [phone]-NzjykSt. Luke'S HospitalPhoenix 250 DO Work Phone: Start: 03-07-2022 End: 31-34-8104hghhvumnbmZflq Fitt Other [facility] [employer] Other Start: 46-28-0378Bowtsegal encounterDapauline Angelo [facility] ClinicStart: 03-04-2022 End: 69-82-8445rybgfyotkmDfkis Kuns Other [facility] [employer] Other Start: 10-21-8205Vhycqvarp encounterBryheather CaseyFPG [facility] CareStart: 02-20-2022 End: 77-66-5631feruhiajlaArezl Sole Other [employer] Other Start: 76-50-7832Rzbmix outpatient visit 25 minutes Elpidio QadirFPG NephrologyStart: 02-10-2022 End: 32-94-2276nxfnveldvvNbmbl Kuns Other [facility] [employer] Other Start: 55-69-3546Tipbrfrxf encounterBryheather CaseyFPG Family Medicine [place]Start: 02-07-2022 End: 54-91-2972njlasequfoCjald Kuns Other [facility] [employer] Other Start: 19-57-8417Tsskwf outpatient visit 25 minutes Charan CaseyFPG Family Medicine [place]Start: 02-05-2022 End: 06-24-5664ytznkbhhvfYxugw Kuns Other [employer] Other Start: 66-11-0078Oidutgjze encounterBryheather MasseysFPG Family Medicine [place]Start: 01-21-2022 End: 42-68-1029vwlincgaxjIbiyx Kuns Other [facility] [employer] Other Start: 37-47-0535Wmopyrzow encounterBryheather MasseysFPG Family Medicine [place]Start: 12-31-2021 End: 75-96-5908vspmeqcnxmDwlw Chatterjee Other [employer] Other start: 94-55-8684Hpmexg outpatient visit 15 minutes Thierno Guillermo [facility] NeurosurgeryStart: 12-07-2021 End: 55-12-1139dyqtxdzdntJdvey Kuns Other [facility] [employer] Other Start: 41-95-0673Zytmyxyns encounterCharan Waters [facility] [place]Start: 12-06-2021 End: 24-56-2767kmzdbqogfbFcfze Kuns Other [employer] Other Start: 78-31-4459Cdpnlshnp encounterCharan MasseybrynERICRuthie [facility] Primary CareStart: 12-03-2021 End: 26-82-5541rlvwwuttmfIkhwd Kuns Other [employer] Other Start: 75-83-2589Urnwqe outpatient visit 15 minutes Charan Waters [facility] [place]Start: 10-01-2021 End: 72-72-4212mcqtdpfwryEruhee Felter Other [facility] [employer] Other Start: 04-46-1657Wtdsnp outpatient visit 25 minutes Blas [facility] [place] End: 53-72-4478Klzuyot encounter statusCharan Dani Casey Work Phone: [phone]-Yzjzb [facility] 250 DO Work Phone: Procedures DateProcedureProcedure DetailPerforming ClinicianStart: 65-82-0302Wpvpjnuy Identification OnlyBryheather Masseys DO Work Phone: Start: 55-16-0399C-ray of both feetCharan Masseys DO Work Phone: Start: 34-29-4842Xhgvnyspli glycosylated w5bElotjla M Petsebastian DO Work Phone: Start: 93-65-8813ZQY of right shoulderYeisonheather Brysons DO Work Phone: Start: 18-62-8987NJP (POC)Charanheather Casey DO Work Phone: Start: 16-15-9816Tkolu chest X-rayYeisonan Kuns DO Work Phone: Start: 41-59-0128Lpdut anesthetic lumbar facet joint nerve blockCharan Casey DO Work Phone: Start: 47-11-7572Jpjrb X-ray of right shoulderCharan Casey DO Work Phone: Start: 27-81-0654Rslgaamfjf glycosylated j3oLbecotw Carmen Munroe DO Work Phone: Start: 85-21-0227Xieps anesthetic sacral epidural blockDO Charan Casey Work Phone: Start: 47-42-4432Tfkelkoni mammography of bilateral breastsDO Charan Casey Work Phone: Start: 78-99-7229Hqflczxyp of local anesthetic into sacroiliac jointDO Charan Casey Work Phone: Start: 61-31-3021RXJ of lumbar spine with contrastDO Charan Casey Work Phone: Start: 35-49-1365Qdswk cultureDO Charan Casey Work Phone: Start: 72-33-2506Shsal chest X-rayDO Charan Casey Work Phone: Start: 87-59-2314Fikcavm of placement of stent for coronary artery disease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Rosalinda Torres MD Work Phone: Start: 36-23-0630Vtouzgp of cholecystectomyS/P laparoscopic cholecystectomyAlllucia Munroe DO Work Phone: Start: 68-73-0649Zpziczzim colonoscopyDO Charan Casey Work Phone: Start: 87-85-9747IwxcfwciprqCfwguz Ibrahim MD Work Phone: Start: 43-82-9771Eldfnktzm of local anesthetic into sacroiliac jointDO Charan Casey Work Phone: Start: 37-57-2524Vdaep X-ray of right hipDO Charan Casey Work Phone: Start: 77-77-9006J-ray of lumbar spine, six views including bending viewsDO Charan Casey Work Phone: Start: 98-29-3749Aucmd chest X-rayDO Charan Casey Work Phone: Start: 07-09-7510Qiwtawadpsg of thoracic spineDO Charan Casey Work Phone: Start: 13-83-4294T-ray of lumbar spine, four or more viewsDO Charan Casey Work Phone: Start: 91-48-6865Wwsvq cultureDO Charan Casey Work Phone: Start: 87-44-2970PUZ of right ankleDO Charan Casey Work Phone: Start: 92-23-8223GTP of right footDO Charan Casey Work Phone: Start: 40-16-7725AMV of left ankleDO Charan Casey Work Phone: Start: 11-45-7515QIG of left footDO Charan Casey Work Phone: Start: 44-46-2429GJ of bilateral feetDO Charan Casey Work Phone: Start: 64-44-7907Hdhmb volume recorder pneumoplethysmographyDO Charan Casey Work Phone: Start: 83-55-6459P-ray of left footDO Charan Casey Work Phone: Arthroplasty of kneeCharan Casey Work Phone: Cardiac catheterizationYeisonan P Brysons Work Phone: Cesarean sectionYeisonan P Brysons Work Phone: CholecystectomyCharan P Brysons Work Phone: History of placement of stent for coronary artery disease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Bryan P [employer] Work Phone: Comment on above:February 2022;History of placement of stent for coronary artery disease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Rosalinda Torres MD Work Phone: History of placement of stent for coronary artery disease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Rosalinda Torres MD Work Phone: Operative procedure on ankleBryan P [employer] Work Phone: Operative procedure on footBryan P [employer] Work Phone: ParathyroidectomyBryan P [employer] Work Phone: Procedure on backBryan P [employer] Work Phone: Procedure on neckBryan P [employer] Work Phone: Total colonoscopyBryan P [employer] Work Phone: Comment on above:30Nov2018; Plan of Treatment DateCare ActivityDetailAuthorStart: 76-85-4910Nxooaigrd for malignant neoplasm of colonParkwood Hospital: 79-86-7565Nkctelxujdgd Vaccine: Pediatrics (0 to 5 Years) and At-Risk Patients (6 to 64 Years) (3 - PPSV23 or PCV20)Pneumococcal Vaccine: Pediatrics (0 to 5 Years) and At-Risk Patients (6 to 64 Years) (3 - PPSV23 orPCV20)[facility]: 34-45-2932Hjdlzmrmydjp Vaccine: Pediatrics (0 to 5 Years) and At-Risk Patients (6 to 64 Years) (3 of 3 - PPSV23 or PCV20)Pneumococcal Vaccine: Pediatrics (0 to 5 Years) and At-Risk Patients (6 to 64 Years) (3 of 3 - PPSV23 or PCV20) [facility]: 10-24-2025 End: 58-57-0181Unvobwj encounter yqxlbadwz79/25/2025 10:30 AM EST Office Visit [facility] [address] [place] [address] Shaina Munroe, DO [address] [place] [address] [facility] [address] Start: 29-08-1572Dkaqdgvb screeningDiabetes: Retinopathy ScreeningNOIN HealthcareStart: 08-15-2025 End: 69-61-6677Zbfoqec encounter procedureNOMS [facility] 230Start: 88-10-1211FDIJP- 19 Vaccine ( season)COVID-19 Vaccine ( season)[facility] HealthcareStart: 46-33-8672Lixyoyhda vaccinationUTAH STATE HOSPITAL HealthcareStart: 07-27-2025 End: 58-19-6259Grzptub encounter qsrqnyywe06/28/2025 8:15 AM EDT Office Visit [facility] [address] [place] [address] Shaina Munroe, DO [address] [place] [address] [facility] 230Comment on above:ArrivedStart: 03-28-2025 End: 50-70-1613Pfcclga encounter gxnuowrwe82/29/2025 8:50 AM EDT Office Visit [place] [address] [facility] [address] [place] [address] Rosalinda Torres MD [address] [facility] [address] [place] [address] [facility]: [facility]25 End: 20-22-1825Uujgbpk encounter bxjzuhkpp96/18/2025 9:30 AM EDT Office Visit [facility] [address] [place] [phone] Shaina Munroe, DO [address] [place] [address] [facility] 230Start: 53-78-6836EF Shoulder - right WO contrastKettering Healthtart: 09-88-8276LKW of right shoulder MR shoulder RT [facility] 01-17-2025 Hemoglobin A1c measurementDiabetes: Hemoglobin B5VIBHZ HealthcareStart: 71-45-7224VemfxofcvKettering Healthtart: 19-24-5304BgxvangcdKettering Healthtart: 08-25-2024 End: 69-96-7704Jjyhugy encounter bpdulyoqb06/26/2024 8:40 AM EDT Office Visit [place] [address] [facility] [address] [place] [address] Rosalinda Torres MD [address] [facility], [address] [place] [address] [facility]: 87-46-2295FSEQN-19 Vaccine ()COVID-19 Vaccine ()[facility] Start: 73-10-4322Tcucxboyh vaccinationInfluenza Vaccine (#1)[facility] Start: 07-07-8882WyocgqnwzKettering Healthtart: 29-55-9814Wduwyztp identified in Urine by CultureKettering Healthtart: 02-29-2024 Urine cultureUrine CultureKettering Healthtart: 50-09-2386JZV, Provider: Rosalinda Torres, Status: Pen, Time: 9:10 AMFUV, Provider: Rosalinda Torres, Status: Pen, Time: 9:10 AMMP-[facility] 250 DO Work Phone: Start: 17-59-7870XwektjftiChildren'S Hospital For Rehabilitation Start: 48-34-1844TqvvzwhgsKettering Healthtart: 24-11-1641YSIDI-19 Vaccine ( season)COVID-19 Vaccine ()[facility]Start: 53-98-8319Qzlnqlfzz vaccinationInfluenza Vaccine (#1)[facility]: 64-43-7027Tggncjtk identified in Urine by CultureKettering Healthtart: 90-63-5904FLZ, Provider: Rosalinda Torres, Status: Pen, Time: 9:00 AMFUV, Provider: Rosalinda Torres, Status: Pen, Time: 9:00 AMMP-[facility] 250 DO Work Phone: Start: 74-74-4756NFnL/Tdap/Td Vaccines (2 - Td or Tdap)DTaP/Tdap/Td Vaccines (2 - Td or Tdap)[facility] Start: 32-40-8519CIYNHDJYT, Provider: Rosalinda Torres, Status: Pen, Time: 1:00 PM SURGNONUH, Provider: Rosalinda Torres, Status: Pen, Time: 1:00 PMMP-[facility] 250 DO Work Phone: Start: 05-19-7604MOF, Provider: Rosalinda Torres, Status: Pen, Time: 1:50 PMFUV, Provider: Rosalinda Torres, Status: Pen, Time: 1:50 PMMP-[facility] 250 DO Work Phone: Start: 13-76-7260UIZ patients and/or patients aged 60+ years (1 - 1-dose 60+ series)RSV patients and/or patients aged 60+ years (1 - 1-dose 60+ series)[facility] HospitalStsom[facility]: 69-75-4169Dikyivzxf for malignant neoplasm of breastMammogramUnAdams County Regional Medical Center: 72-89-4397Jffsecjuq for malignant neoplasm of cervixNOMS HealthcareStart: 11-50-2203VRdQ/Tdap/Td Vaccines (1 - Tdap) DTaP/Tdap/Td Vaccines (1 - Tdap)[facility] HospitalSt[facility]: 66-22-8870Yfcfzvict for malignant neoplasm of cervixUnMemorial Health System Selby General HospitalStsomerville: 18-92-4694Klips screening for proteinDiabetes: Urine Protein ScreeningParkwood Hospital: 12-15-3810Nbwsjeeyk C screening Hepatitis C ScreeningParkwood Hospital: 66-99-3263Qwuvabsp foot examinationDiabetes: Foot ExamUnAdams County Regional Medical Center: 29-57-9131Vdtwtmhp screeningDiabetes: Retinopathy ScreeningParkwood Hospital: 66-67-0526DWD Vaccines (1 of 1 - Standard series)MMR Vaccines (1 of 1 - Standard series)[facility]: 1960 Hemoglobin A1c measurementDiabetes: Hemoglobin B5BMaunhehwqjAdams County Regional Medical Center: 11-49-7538BNP screeningHIV ScreeningParkwood Hospital: 23-49-9044Vxpkq panelLipid PanelUnAdams County Regional Medical Center: 1960Medicare Annual Wellness (AWV)Medicare Annual Wellness (AWV)[facility] HealthcareStart: 1960Medicare Annual Wellness VisitMedicare Annual Wellness Visit (AWV)[facility]: 1960 Screening for malignant neoplasm of colonUnAdams County Regional Medical Center: 39-07-1742Suhkmy Adult PhysicalYearly Adult PhysicalUnMemorial Health System Selby General HospitalComprehensive metabolic 2000 panel - Serum or PlasmaChildren'S Hospital For RehabilitationMR Lumbar spine WO and W contrast [facility] HospitalMR Shoulder - right WO contrastChildren'S Hospital For RehabilitationPatient EducationGuernsey Memorial Hospital Ctr Work Phone: Patient referralGuernsey Memorial Hospital Ctr Work Phone: Renal function 1999 panel - Serum or PlasmaChildren'S Hospital For RehabilitationRheumatoid factor [Units/volume] in Serum or Plasma [facility] Immunizations Immunization DateImmunizationNotesCare SqalwsubOizcdgpb70-16-2131rzqjmy vaccine recombinantDawn Fitt Other [facility]11-29-2022zoster vaccine recombinantAaron LePoire Other [facility]11-17-2022influenza virus vaccine, unspecified formulationDO Charan Casey Work Phone: [facility]11-17-2022influenza, seasonal, injectableRosalinda Torres MD Work Phone: [facility] Work Phone: [phone] SARS-CoV-2 VaccinationRosalinda Torres MD Work Phone: [facility] Work Phone: [phone]-13 Moderna (BIvalent)Renée Fitt Other [facility]11-17-2022influenza, high dose seasonal, preservative-freeDawn Fitt Other [employer] Other 11009311-43-7430jlqrrzfjy, injectable, quadrivalent, preservative freeDawn Fitt Other [employer] Other [id number] COVID-19 Vaccine 100 MCG/0.5ML Intramuscular SuspensionBryheather P [employer] Work Phone: [facility]10-27-2021Moderna SARS-CoV-2 Booster VaccinationFahadlucia Munroe DO Work Phone: [facility] LouisGdbetijufz84-07-2007mqeuqqss influenza, intradermal, preservative freeBryheather P [employer] Work Phone: [phone]-JyudqCanby Medical Center 250 DO Work Phone: [phone]-98 Vaccine Moderna - Documentation Purposes OnlyThomas Erastoer Other [facility]12-30-2020Moderna COVID-19 Vaccine 100 MCG/0.5ML Intramuscular SuspensionBryan P Kuns Work Phone: [facility]10-01-2019influenza virus vaccine, unspecified formulationBryan P [employer] Work Phone: [phone]-CtwhuCanby Medical Center 250 DO Work Phone: [phone]ees, injectable, quadrivalent, preservative freeAllison Petznick DO Work Phone: noSaint Joseph Hospital WestHfwsglammv01-24-7719rmwuatxmz, seasonal, injectableThomas Felter Other [facility]10-01-2018influenza, seasonal, injectableThomas Felter Other [facility]10-01-2018influenza, seasonal, injectable, preservative freeAllison Petznick DO Work Phone: noSaint Joseph Hospital WestKlvnieadzz83-11-1830gmfircxdu virus vaccine, unspecified formulationDO Charan Casey Work Phone: [facility]01-03-2017influenza, seasonal, injectable, preservative freeBryan P Kuns Work Phone: [phone]-DqxqpWilliam [place] [address] DO Work Phone: [phone]yhhqbmrda conjugate vaccine, 13 valent Blas Felter Other [facility]01-03-2017influenza, high dose seasonal, preservative-freeThomas Felter Other [employer] Other [id number], injectable, quadrivalent, preservative freeDawn Fitt Other [employer] Other [id number]j polysaccharide vaccine, 23 valentBryan P Kuns Work Phone: [phone]-QcmimCook Hospital 250 DO Work Phone: [phone]udws polysaccharide vaccine, 23 valentBryan P Kuns Work Phone: [facility]10-10-2012influenza virus vaccine, unspecified formulationDO Charan Casey Work Phone: [facility]10-10-2012tetanus toxoid, reduced diphtheria toxoid, and acellular pertussis vaccine, adsorbed Blas Ortiz Other [facility]10-10-2012influenza virus vaccine, split virus (incl. purified surface antigen)Blas Ortiz Other [employer] Other influenza virus vaccine, unspecified formulationCharan Casey Work Phone: [phone]-MdbxqCook Hospital 250 DO Work Phone: Comment on above:2009NEGATED: Highlighted row has not occurred!56-44-1740qygxgvvfi, injectable,quadrivalent, preservative free, pediatricThomas Diana Other [employer] Other Payers DatePayer CategoryPayerPolicy [id number] 2024MedicareUNITED HEALTHCARE MEDICARE UNITED HEALTHCARE MEDICARE [id number] 2024-Present [id number] [place], [place] [id number] 2024Medicare (Managed Care)[id number] [id number] 2.16.840.1.662038.3.57[id number] 2.16.840.1.896214.3.57[id number] 2.16.840.1.332890.3.57[id number] 2.16.840.1.455522.3.57[id number] 2.16.840.1.607038.3.57[id number] 2.16.840.1.735004.3.57[id number] 2.16.840.1.155752.3.579.2.67892-40-3778Mriyvjg6592113 2.16.840.1.978943.3.57[id number] 2.16.840.1.027931.3.579.[id number] 2.16.840.1.551178.3.57[id number] 2.16.840.1.497683.3.579.2.54936-08-7608Gubwheg3701949 2.16.840.1.714132.3.579.[id number] 2.16.840.1.469953.3.57[id number] 2.16.840.1.676459.3.57[id number] 2.16.840.1.334535.3.57[id number] 2.16.840.1.279656.3.57[id number] 2.16.840.1.428840.3.57[id number] 2..0.1.601693.3.57[id number] 2.16.840.1.148792.3.579.2.[id number] 2.0.1.887476.19 [id number] Pay [id number] Social History DateTypeDetailFacilityStart: 12-04-2023 End: 44-82-7859Ftriqfnkpu caffeine consumptionOccasional caffeine consumption [facility] HealthcareComment on above:Coffee;Start: 12-04-2023 End: 75-11-9685Was [facility]igned At [facility] HealthcareStart: 07-27-2022 End: 05-78-2492Ovfwkie smoking status NHISNever smoked tobacco (finding) [facility]: 95-39-1595Lec Assigned At [facility] CenterFeFlower Hospitaltart: 05-19-2023 End: 86-10-6142Lexxwkg use and exposureSmokeless tobacco non-userAdams County Hospital Work Phone: Start: 12-04-2023 End: 64-07-7903Urvvuci intakeLifetime non-drinker (finding)[facility] Work Phone: Start: 29-82-7489Mod Assigned At BirthNot on file [facility] Work Phone: Start: 02-12-2024 End: 78-73-6364Tigdhqbm to SARS-CoV-2 (event)Not sureUnMemorial Health System Selby General HospitalStart: 10-19-2024 End: 54-81-3503XqoCzebjd (finding)[facility] RehabilitationDo you belong to any clubs or organizations such as restorationist groups, unions, fraternal or athletic groups, or school groups?YesNOMS HealthcareAre you now , , , , never or living with a partner?MarriedNOMS HealthcareHow often to you have a drink containing alcohol?NeverN[facility]S Healthcare Start: 36-57-3924Vrk many standard drinks containing alcohol do you have on a typical day?Patient does not drinkNOMS HealthcareDo you feel stress - tense, restless, nervous, or anxious, or unable to sleep at night because yourmind is troubled all the time - these days [OSQ]To some extentNOMS HealthcareThe food that (I/we) bought just didn't last, and (I/we) didn't have money to get more. Never trueNOMS HealthcareIn the past 12 months, was there a time when you were not able to pay the mortgage or rent on time?NoNOMS HealthcareStart: 05-22-2023 Alcohol Commentcaffeine: 1-2 cups per day coffeeNOMS HealthcareStart: 05-20-2023 Gender identityIdentifies as female gender (finding)[facility] Medical Equipment Procedure CodeEquipment CodeEquipment Original TextEquipment IdentifierDates Fusion, spine, lumbar, XLIFLATERAL STD 1 LEVEL CONSTRUCTFDAStart: 07-25-2020 Fusion, spine, lumbar, XLIFOrthopaedic bone screw, non-bioabsorbable, non-sterile+[id number] FDAStart: 80-54-5521Qjunrm, spine, lumbar, XLIFBone- screw internal spinal fixation system, non-sterile+[id number] FDAStart: 16-24-3423Xiixyu, spine, lumbar, XLIFSTRATOFUSE DBM 10CCFDAStart: 07-25-2020 Fusion, spine, lumbar, XLIFTIMBERLINE INTERBODYFDAStart: 79-32-7669Nounju, spine, lumbar, XLIFSpinal fusion graft kit ()[id number] FDAStart: 02-91-7093Ivsosr, spine, lumbar, XLIFBone-screw internal spinal fixation system, non-sterile+[id number] FDAStart: 84-44-5440Kozjky, spine, lumbar, XLIFLATERAL STD 1 LEVEL CONSTRUCTFDA Start: 89-76-8535Hzwhoq, spine, lumbar, XLIFSTRATOFUSE DBM 10CCFDAStart: 95-46-6922Virfjo, spine, lumbar, XLIFTIMBERLINE INTERBODYFDAStart: 07-25-2020 Fusion, spine, lumbar, XLIFLATERAL STD 1 LEVEL CONSTRUCTFDAStart: 07-25-2020 Fusion, spine, lumbar, XLIFSTRATOFUSE DBM 10CCFDAStart: 44-87-8393Yubxku, spine, lumbar, XLIFTIMBERLINE INTERBODYFDAStart: 80-59-9602Txtdqd, spine, lumbar, XLIF LATERAL STD 1 LEVEL CONSTRUCTFDAStart: 54-49-5214Jvvewz, spine, lumbar, XLIF STRATOFUSE DBM 10CCFDAStart: 85-01-8326Laxzlr, spine, lumbar, XLIFTIMBERLINE INTERBODYFDAStart: 20-68-0001Sfsxba, spine, lumbar, XLIFLATERAL STD 1 LEVEL CONSTRUCTFDAStart: 74-00-7411Wqjwvz, spine, lumbar, XLIFSTRATOFUSE DBM 10CCFDA Start: 65-45-6757Vwcxet, spine, lumbar, XLIFTIMBERLINE INTERBODYFDAStart: 06-66-8465Rhwgyk, spine, lumbar, XLIFLATERAL STD 1 LEVEL CONSTRUCTFDAStart: 90-05-3193Mdmibg, spine, lumbar, XLIFSTRATOFUSE DBM 10CCFDAStart: 07-25-2020 Fusion, spine, lumbar, XLIFTIMBERLINE INTERBODYFDAStart: 55-83-3822Rwmgmv, spine, lumbar, XLIFLATERAL STD 1 LEVEL CONSTRUCTFDAStart: 50-82-4265Omqjqq, spine, lumbar, XLIFSTRATOFUSE DBM 10CCFDAStart: 16-93-6394Qmmleu, spine, lumbar, XLIFTIMBERLINE INTERBODYFDAStart: 12-21-4112Xsiepn, spine, lumbar, XLIFLATERAL STD 1 LEVEL CONSTRUCTFDAStart: 55-06-6324Jkffay, spine, lumbar, XLIFSTRATOFUSE DBM 10CCFDAStart: 43-30-5202Xgkpea, spine, lumbar, XLIFTIMBERLINE INTERBODYFDA Start: 71-95-8621Cxfxyh, spine, lumbar, XLIFLATERAL STD 1 LEVEL CONSTRUCTFDA Start: 33-00-7953Fzrqxu, spine, lumbar, XLIFSTRATOFUSE DBM 10CCFDAStart: 23-91-5884Yylord, spine, lumbar, XLIFTIMBERLINE INTERBODYFDAStart: 07-25-2020 Fusion, spine, lumbar, XLIFLATERAL STD 1 LEVEL CONSTRUCTFDAStart: 07-25-2020 Fusion, spine, lumbar, XLIFSTRATOFUSE DBM 10CCFDAStart: 50-88-7227Hhkkfk, spine, lumbar, XLIFTIMBERLINE INTERBODYFDAStart: 05-49-1958Gcwrli, spine, lumbar, XLIF LATERAL STD 1 LEVEL CONSTRUCTFDAStart: 15-27-9719Mhyysm, spine, lumbar, XLIF STRATOFUSE DBM 10CCFDAStart: 79-60-6914Bdaruz, spine, lumbar, XLIFTIMBERLINE INTERBODYFDAStart: 26-63-6811Kgfpcg, spine, lumbar, XLIFLATERAL STD 1 LEVEL CONSTRUCTFDAStart: 38-42-8084Eizmuq, spine, lumbar, XLIFSTRATOFUSE DBM 10CCFDA Start: 51-79-9277Huhteb, spine, lumbar, XLIFTIMBERLINE INTERBODYFDAStart: 59-39-6792Elojso, spine, lumbar, XLIFLATERAL STD 1 LEVEL CONSTRUCTFDAStart: 17-53-9872Iuvoex, spine, lumbar, XLIFSTRATOFUSE DBM 10CCFDAStart: 07-25-2020 Fusion, spine, lumbar, XLIFTIMBERLINE INTERBODYFDAStart: 12-02-6283Ysyorn, spine, lumbar, XLIFLATERAL STD 1 LEVEL CONSTRUCTFDAStart: 78-99-0362Xuwhwu, spine, lumbar, XLIFSTRATOFUSE DBM 10CCFDAStart: 87-44-0815Lqnhbk, spine, lumbar, XLIFTIMBERLINE INTERBODYFDAStart: 51-76-5927Ebussm, spine, lumbar, XLIFLATERAL STD 1 LEVEL CONSTRUCTFDAStart: 25-17-7806Mavotq, spine, lumbar, XLIFSTRATOFUSE DBM 10CCFDAStart: 24-14-6437Nwgyxf, spine, lumbar, XLIFTIMBERLINE INTERBODYFDA Start: 03-83-6601Urvgik, spine, lumbar, XLIFLATERAL STD 1 LEVEL CONSTRUCTFDA Start: 87-02-1730Qbjxmq, spine, lumbar, XLIFSTRATOFUSE DBM 10CCFDAStart: 28-73-0367Cigody, spine, lumbar, XLIFTIMBERLINE INTERBODYFDAStart: 07-25-2020 Fusion, spine, lumbar, XLIFLATERAL STD 1 LEVEL CONSTRUCTFDAStart: 07-25-2020 Fusion, spine, lumbar, XLIFSTRATOFUSE DBM 10CCFDAStart: 52-27-7670Ffketj, spine, lumbar, XLIFTIMBERLINE INTERBODYFDAStart: 68-63-1338Mpzzox, spine, lumbar, XLIF LATERAL STD 1 LEVEL CONSTRUCTFDAStart: 16-64-5430Ssixjb, spine, lumbar, XLIF STRATOFUSE DBM 10CCFDAStart: 81-08-7236Ymqaic, spine, lumbar, XLIFTIMBERLINE INTERBODYFDAStart: 01-87-4983Ndtpzi, spine, lumbar, XLIFLATERAL STD 1 LEVEL CONSTRUCTFDAStart: 29-38-8653Uhufcd, spine, lumbar, XLIFSTRATOFUSE DBM 10CCFDA Start: 03-85-2035Dfqcjq, spine, lumbar, XLIFTIMBERLINE INTERBODYFDAStart: 41-40-7015Rsrzbf, spine, lumbar, XLIFLATERAL STD 1 LEVEL CONSTRUCTFDAStart: 89-99-9654Wrwfbj, spine, lumbar, XLIFSTRATOFUSE DBM 10CCFDAStart: 07-25-2020 Fusion, spine, lumbar, XLIFTIMBERLINE INTERBODYFDAStart: 15-55-6050Mzazhb, spine, lumbar, XLIFLATERAL STD 1 LEVEL CONSTRUCTFDAStart: 91-43-4385Ghupbq, spine, lumbar, XLIFSTRATOFUSE DBM 10CCFDAStart: 31-80-6222Bcobbr, spine, lumbar, XLIFTIMBERLINE INTERBODYFDAStart: 47-53-7812Xayamn, spine, lumbar, XLIFLATERAL STD 1 LEVEL CONSTRUCTFDAStart: 69-43-4456Ainluu, spine, lumbar, XLIFSTRATOFUSE DBM 10CCFDAStart: 82-02-1140Oyvnxb, spine, lumbar, XLIFTIMBERLINE INTERB[employer]FDA Start: 60-34-0400Mcbavb, spine, lumbar, XLIFLATERAL STD 1 LEVEL CONSTRUCTFDA Start: 26-96-3828Pjhssf, spine, lumbar, XLIFSTRATOFUSE DBM 10CCFDAStart: 70-30-5856Zqnexd, spine, lumbar, XLIFTIMBERLINE INTERBODYFDAStart: 07-25-2020 Fusion, spine, lumbar, XLIFLATERAL STD 1 LEVEL CONSTRUCTFDAStart: 07-25-2020 Fusion, spine, lumbar, XLIFSTRATOFUSE DBM 10CCFDAStart: 71-88-5549Amvctc, spine, lumbar, XLIFTIMBERLINE INTERBODYFDAStart: 46-65-4154Fjfhuu, spine, lumbar, XLIF LATERAL STD 1 LEVEL CONSTRUCTFDAStart: 91-89-9492Dftfca, spine, lumbar, XLIF STRATOFUSE DBM 10CCFDAStart: 32-04-0401Knqewf, spine, lumbar, XLIFTIMBERLINE INTERBODYFDAStart: 02-14-9248Kcxbkt, spine, lumbar, XLIFLATERAL STD 1 LEVEL CONSTRUCTFDAStart: 13-46-6246Vkvpqc, spine, lumbar, XLIFSTRATOFUSE DBM 10CCFDA Start: 80-56-4440Dsejje, spine, lumbar, XLIFTIMBERLINE INTERBODYFDAStart: 71-72-1459Hxauzl, spine, lumbar, XLIFLATERAL STD 1 LEVEL CONSTRUCTFDAStart: 63-15-8943Bdbkqg, spine, lumbar, XLIFSTRATOFUSE DBM 10CCFDAStart: 07-25-2020 Fusion, spine, lumbar, XLIFTIMBERLINE INTERBODYFDAStart: 76-85-8151Jcuuto, spine, lumbar, XLIFLATERAL STD 1 LEVEL CONSTRUCTFDAStart: 23-48-0764Smoglh, spine, lumbar, XLIFSTRATOFUSE DBM 10CCFDAStart: 03-07-5410Rhgnmx, spine, lumbar, XLIFTIMBERLINE INTERBODYFDAStart: 29-70-1183Alheya, spine, lumbar, XLIFLATERAL STD 1 LEVEL CONSTRUCTFDAStart: 95-56-2287Mgyucf, spine, lumbar, XLIFSTRATOFUSE DBM 10CCFDAStart: 03-00-4523Ttwexu, spine, lumbar, XLIFTIMBERLINE [employer]FDA Start: 55-13-6661Srphsy, spine, lumbar, XLIFLATERAL STD 1 LEVEL CONSTRUCTFDA Start: 51-22-3597Pnghpq, spine, lumbar, XLIFSTRATOFUSE DBM 10CCFDAStart: 00-69-9271Svpyho, spine, lumbar, XLIFTIMBERLINE INTERBODYFDAStart: 07-25-2020 Fusion, spine, lumbar, XLIFLATERAL STD 1 LEVEL CONSTRUCTFDAStart: 07-25-2020 Fusion, spine, lumbar, XLIFSTRATOFUSE DBM 10CCFDAStart: 52-52-7821Lmkddy, spine, lumbar, XLIFTIMBERLINE INTERBODYFDAStart: 93-48-1837Nhfiqw, spine, lumbar, XLIF LATERAL STD 1 LEVEL CONSTRUCTFDAStart: 64-11-7498Rjcdcx, spine, lumbar, XLIF STRATOFUSE DBM 10CCFDAStart: 49-10-0124Hufjvy, spine, lumbar, XLIFTIMBERLINE INTERBODYFDAStart: 68-02-5751Jhsjqg, spine, lumbar, XLIFLATERAL STD 1 LEVEL CONSTRUCTFDAStart: 42-37-7074Zyojlf, spine, lumbar, XLIFSTRATOFUSE DBM 10CCFDA Start: 27-61-8183Sswohl, spine, lumbar, XLIFTIMBERLINE INTERBODYFDAStart: 48-27-1278Hnlsnu, spine, lumbar, XLIFLATERAL STD 1 LEVEL CONSTRUCTFDAStart: 02-16-1377Tbjclw, spine, lumbar, XLIFSTRATOFUSE DBM 10CCFDAStart: 07-25-2020 Fusion, spine, lumbar, XLIFTIMBERLINE INTERBODYFDAStart: 27-79-9013Fvmgux, spine, lumbar, XLIFLATERAL STD 1 LEVEL CONSTRUCTFDAStart: 08-07-0576Jegcdj, spine, lumbar, XLIFSTRATOFUSE DBM 10CCFDAStart: 01-28-0531Iduycs, spine, lumbar, XLIFTIMBERLINE INTERBODYFDAStart: 21-02-8779Jbcjze, spine, lumbar, XLIFLATERAL STD 1 LEVEL CONSTRUCTFDAStart: 90-75-4709Aqwmhf, spine, lumbar, XLIFSTRATOFUSE DBM 10CCFDAStart: 16-26-0402Wamppc, spine, lumbar, XLIFTIMBERLINE INTERB[employer]FDA Start: 13-40-9707Moigjv, spine, lumbar, XLIFLATERAL STD 1 LEVEL CONSTRUCTFDA Start: 37-92-6078Ntswih, spine, lumbar, XLIFSTRATOFUSE DBM 10CCFDAStart: 34-44-9953Iyqylw, spine, lumbar, XLIFTIMBERLINE INTERBODYFDAStart: 07-25-2020 Fusion, spine, lumbar, XLIFLATERAL STD 1 LEVEL CONSTRUCTFDAStart: 07-25-2020 Fusion, spine, lumbar, XLIFSTRATOFUSE DBM 10CCFDAStart: 76-81-9650Ahqxzw, spine, lumbar, XLIFTIMBERLINE INTERBODYFDAStart: 93-46-2929Mjblew, spine, lumbar, XLIF LATERAL STD 1 LEVEL CONSTRUCTFDAStart: 14-92-5639Onppzn, spine, lumbar, XLIF STRATOFUSE DBM 10CCFDAStart: 86-59-2853Dlvjnb, spine, lumbar, XLIFTIMBERLINE INTERBODYFDAStart: 86-65-9453Bwtncg, spine, lumbar, XLIFLATERAL STD 1 LEVEL CONSTRUCTFDAStart: 09-57-7852Pkeyzy, spine, lumbar, XLIFSTRATOFUSE DBM 10CCFDA Start: 96-03-4523Nqkuyl, spine, lumbar, XLIFTIMBERLINE INTERBODYFDAStart: 87-59-3149Joniqg, spine, lumbar, XLIFLATERAL STD 1 LEVEL CONSTRUCTFDAStart: 48-03-7531Btnddq, spine, lumbar, XLIFSTRATOFUSE DBM 10CCFDAStart: 07-25-2020 Fusion, spine, lumbar, XLIFTIMBERLINE INTERBODYFDAStart: 62-53-2864Moukpy, spine, lumbar, XLIFLATERAL STD 1 LEVEL CONSTRUCTFDAStart: 65-79-9636Colbew, spine, lumbar, XLIFSTRATOFUSE DBM 10CCFDAStart: 94-75-2356Fnmhst, spine, lumbar, XLIFTIMBERLINE INTERBODYFDAStart: 98-94-3592Eualng, spine, lumbar, XLIFLATERAL STD 1 LEVEL CONSTRUCTFDAStart: 49-05-9118Hyewle, spine, lumbar, XLIFSTRATOFUSE DBM 10CCFDAStart: 31-88-9156Wwigpn, spine, lumbar, XLIFTIMBERLINE INTERBODYFDA Start: 17-31-2331Isnmql, spine, lumbar, XLIFLATERAL STD 1 LEVEL CONSTRUCTFDA Start: 24-77-0476Zoaivf, spine, lumbar, XLIFSTRATOFUSE DBM 10CCFDAStart: 32-92-7186Ltsviv, spine, lumbar, XLIFTIMBERLINE INTERBODYFDAStart: 07-25-2020 Fusion, spine, lumbar, XLIFLATERAL STD 1 LEVEL CONSTRUCTFDAStart: 07-25-2020 Fusion, spine, lumbar, XLIFSTRATOFUSE DBM 10CCFDAStart: 84-79-7735Wskidq, spine, lumbar, XLIFTIMBERLINE INTERBODYFDAStart: 55-60-6038Odlqha, spine, lumbar, XLIF LATERAL STD 1 LEVEL CONSTRUCTFDAStart: 88-85-9868Wcdfbt, spine, lumbar, XLIF STRATOFUSE DBM 10CCFDAStart: 79-75-2642Ujtkgz, spine, lumbar, XLIFTIMBERLINE INTERBODYFDAStart: 07-54-7941Ikztrk, spine, lumbar, XLIFLATERAL STD 1 LEVEL CONSTRUCTFDAStart: 32-37-3181Vkdfph, spine, lumbar, XLIFSTRATOFUSE DBM 10CCFDA Start: 54-16-6166Wxvpda, spine, lumbar, XLIFTIMBERLINE INTERBODYFDAStart: [id number], [id number]: 08-11-2013 End: 93-14-3765Hewf-eluting coronary artery stent, bvt-imrzoeunzcfkm-uawiiyo-coated()[id number] FDAStart: 56-17-4797Wpbyqlc artery closure plug/patch, synthetic polymer()[id number] FDAStart: 71-68-3108Roy Needle, Diabetic (Ulticare Pen Needle) 31 gauge x 3/16 needleStart: 25-00-4513Rkz Needle, Diabetic (Ulticare Pen Needle) 31 gauge x 3/16 needleStart: 05-13-2024 End: 81-13-5131Suw Needle, Diabetic (Ulticare Pen Needle) 31 gauge x 3/16 needleStart: 67-87-7515Jox Needle, Diabetic (Ulticare Pen Needle) 31 gauge x 3/16 needleStart: 05-13-2024 End: 60-60-8911Iyu Needle, Diabetic (Ulticare Pen Needle) 31 gauge x 3/16 needleStart: 05-53-3756Mkr Needle, Diabetic (Ulticare Pen Needle) 31 gauge x 3/16 needleStart: 05-13-2024 End: 20-91-7567Cwi Needle, Diabetic (Ulticare Pen Needle) 31 gauge x 3/16 needleStart: 30-66-6301Hmp Needle, Diabetic (Ulticare Pen Needle) 31 gauge x 3/16 needleStart: 05-13-2024 End: 50-24-5335Mbd Needle, Diabetic (Ulticare Pen Needle) 31 gauge x 3/16 needleStart: 80-48-4470Chd Needle, Diabetic (Ulticare Pen Needle) 31 gauge x 3/16 needleStart: 05-13-2024 End: 21-99-7932Say Needle, Diabetic (Ulticare Pen Needle) 31 gauge x 3/16 needleStart: 81-15-9074Upw Needle, Diabetic (Ulticare Pen Needle) 31 gauge x 3/16 needleStart: 05-13-2024 End: 62-50-6510Jfe Needle, Diabetic (Ulticare Pen Needle) 31 gauge x 3/16 needleStart: 14-96-7808Ecv Needle, Diabetic (Ulticare Pen Needle) 31 gauge x 3/16 needleStart: 05-13-2024 End: 65-71-3102Uml Needle, Diabetic (Ulticare Pen Needle) 31 gauge x 3/16 needleStart: 05-13-2024 End: 39-12-5433Hwk Needle, Diabetic (Ulticare Pen Needle) 31 gauge x 3/16 needleStart: 26-47-6878Yqj Needle, Diabetic 31 gauge x 5/16 needleStart: 13-88-9259Qhf Needle, Diabetic (Ulticare Pen Needle) 31 gauge x 3/16 needle Start: 05-13-2024 End: 35-51-8930Dza Needle, Diabetic (Ulticare Pen Needle) 31 gauge x 3/16 needleStart: 05-13-2024 End: 90-25-3129Mgq Needle, Diabetic 31 gauge x 5/16 needleStart: 09-12-2024 End: 12-22-4546Imw Needle, Diabetic (Ulticare Pen Needle) 31 gauge x 3/16 needleStart: 95-71-6778Vje Needle, Diabetic 31 gauge x 5/16 needleStart: 71-76-1052Ftu Needle, Diabetic (Ulticare Pen Needle) 31 gauge x 3/16 needle Start: 05-13-2024 End: 42-77-9471Wxe Needle, Diabetic (Ulticare Pen Needle) 31 gauge x 3/16 needleStart: 05-13-2024 End: 84-17-9193Hqk Needle, Diabetic 31 gauge x 5/16 needleStart: 09-12-2024 End: 04-85-3240Zkm Needle, Diabetic (Ulticare Pen Needle) 31 gauge x 3/16 needleStart: 45-45-8169Zwb Needle, Diabetic 31 gauge x 5/16 needleStart: 07-51-1063Mtd Needle, Diabetic (Ulticare Pen Needle) 31 gauge x 3/16 needle Start: 05-13-2024 End: 60-61-6330Sig Needle, Diabetic (Ulticare Pen Needle) 31 gauge x 3/16 needleStart: 05-13-2024 End: 38-66-2850Yhs Needle, Diabetic 31 gauge x 5/16 needleStart: 09-12-2024 End: 91-25-9056Mql Needle, Diabetic (Ulticare Pen Needle) 31 gauge x 3/16 needleStart: 69-95-0800Hpr Needle, Diabetic 31 gauge x 5/16 needleStart: 84-16-0783Ysg Needle, Diabetic (Ulticare Pen Needle) 31 gauge x 3/16 needle Start: 05-13-2024 End: 90-32-9456Vqb Needle, Diabetic (Ulticare Pen Needle) 31 gauge x 3/16 needleStart: 05-13-2024 End: 23-89-6537Qvt Needle, Diabetic 31 gauge x 5/16 needleStart: 09-12-2024 End: 83-40-3373Jmf Needle, Diabetic (Ulticare Pen Needle) 31 gauge x 3/16 needleStart: 04-11-7341Eod Needle, Diabetic 31 gauge x 5/16 needleStart: 33-11-5069Ggr Needle, Diabetic (Ulticare Pen Needle) 31 gauge x 3/16 needle Start: 05-13-2024 End: 19-28-1267Pny Needle, Diabetic (Ulticare Pen Needle) 31 gauge x 3/16 needleStart: 05-13-2024 End: 15-57-8963Pmd Needle, Diabetic 31 gauge x 5/16 needleStart: 09-12-2024 End: 77-91-2708Lum Needle, Diabetic (Ulticare Pen Needle) 31 gauge x 3/16 needleStart: 44-10-2060Gww Needle, Diabetic 31 gauge x 5/16 needleStart: 08-89-6157Yse Needle, Diabetic (Ulticare Pen Needle) 31 gauge x 3/16 needle Start: 05-13-2024 End: 90-20-2115Prc Needle, Diabetic (Ulticare Pen Needle) 31 gauge x 3/16 needleStart: 05-13-2024 End: 37-55-6980Tgp Needle, Diabetic 31 gauge x 5/16 needleStart: 09-12-2024 End: 31-42-4619Xan Needle, Diabetic (Ulticare Pen Needle) 31 gauge x 3/16 needleStart: 51-40-8499Qls Needle, Diabetic 31 gauge x 5/16 needleStart: 78-39-0805Srs Needle, Diabetic (Ulticare Pen Needle) 31 gauge x 3/16 needle Start: 05-13-2024 End: 13-93-7377Uga Needle, Diabetic (Ulticare Pen Needle) 31 gauge x 3/16 needleStart: 05-13-2024 End: 00-08-0349Xcp Needle, Diabetic 31 gauge x 5/16 needleStart: 09-12-2024 End: 61-73-5589Tbl Needle, Diabetic (Ulticare Pen Needle) 31 gauge x 3/16 needleStart: 70-90-2450Lfq Needle, Diabetic 31 gauge x 5/16 needleStart: 73-33-6609Jvc Needle, Diabetic (Ulticare Pen Needle) 31 gauge x 3/16 needle Start: 05-13-2024 End: 93-07-6401Sus Needle, Diabetic (Ulticare Pen Needle) 31 gauge x 3/16 needleStart: 05-13-2024 End: 34-06-7006Fvs Needle, Diabetic 31 gauge x 5/16 needleStart: 09-12-2024 End: 25-67-8415Stv Needle, Diabetic (Ulticare Pen Needle) 31 gauge x 3/16 needleStart: 77-57-7362Abi Needle, Diabetic 31 gauge x 5/16 needleStart: 67-70-3430Krq Needle, Diabetic (Ulticare Pen Needle) 31 gauge x 3/16 needle Start: 05-13-2024 End: 08-75-3680Bpl Needle, Diabetic (Ulticare Pen Needle) 31 gauge x 3/16 needleStart: 05-13-2024 End: 86-92-7898Yah Needle, Diabetic 31 gauge x 5/16 needleStart: 09-12-2024 End: 32-43-4105Dim Needle, Diabetic (Ulticare Pen Needle) 31 gauge x 3/16 needleStart: 40-89-9812Vwz Needle, Diabetic 31 gauge x 5/16 needleStart: 29-99-2753Zwv Needle, Diabetic (Ulticare Pen Needle) 31 gauge x 3/16 needle Start: 05-13-2024 End: 40-39-3194Cay Needle, Diabetic (Ulticare Pen Needle) 31 gauge x 3/16 needleStart: 05-13-2024 End: 02-16-9984Tyi Needle, Diabetic 31 gauge x 5/16 needleStart: 09-12-2024 End: 06-25-0491Gep Needle, Diabetic (Ulticare Pen Needle) 31 gauge x 3/16 needleStart: 16-90-7683Eqg Needle, Diabetic 31 gauge x 5/16 needleStart: 83-48-7659Ycv Needle, Diabetic (Ulticare Pen Needle) 31 gauge x 3/16 needle Start: 05-13-2024 End: 94-84-3345Bxt Needle, Diabetic (Ulticare Pen Needle) 31 gauge x 3/16 needleStart: 05-13-2024 End: 52-91-4040Nvh Needle, Diabetic 31 gauge x 5/16 needleStart: 09-12-2024 End: 51-95-6352Zjf Needle, Diabetic (Ulticare Pen Needle) 31 gauge x 3/16 needleStart: 10-47-8705Nia Needle, Diabetic 31 gauge x 5/16 needleStart: 49-04-4341Suo Needle, Diabetic (Ulticare Pen Needle) 31 gauge x 3/16 needle Start: 05-13-2024 End: 46-45-9088Bxi Needle, Diabetic (Ulticare Pen Needle) 31 gauge x 3/16 needleStart: 05-13-2024 End: 35-78-1384Ibm Needle, Diabetic 31 gauge x 5/16 needleStart: 09-12-2024 End: 09-43-7452Ixw Needle, Diabetic (Ulticare Pen Needle) 31 gauge x 3/16 needleStart: 44-02-6170Sda Needle, Diabetic 31 gauge x 5/16 needleStart: 39-58-6712Wna Needle, Diabetic (Ulticare Pen Needle) 31 gauge x 3/16 needle Start: 05-13-2024 End: 52-27-2001Cob Needle, Diabetic (Ulticare Pen Needle) 31 gauge x 3/16 needleStart: 05-13-2024 End: 22-88-2150Wdz Needle, Diabetic 31 gauge x 5/16 needleStart: 09-12-2024 End: 22-02-2653Zaj Needle, Diabetic (Ulticare Pen Needle) 31 gauge x 3/16 needleStart: 07-69-6750Vog Needle, Diabetic 31 gauge x 5/16 needleStart: 99-75-4139Uzx Needle, Diabetic (Ulticare Pen Needle) 31 gauge x 3/16 needle Start: 05-13-2024 End: 18-29-2855Zbe Needle, Diabetic (Ulticare Pen Needle) 31 gauge x 3/16 needleStart: 05-13-2024 End: 78-20-4627Xcr Needle, Diabetic 31 gauge x 5/16 needleStart: 09-12-2024 End: 15-96-8470Ueg Needle, Diabetic (Ulticare Pen Needle) 31 gauge x 3/16 needleStart: 08-22-7152Ddk Needle, Diabetic 31 gauge x 5/16 needleStart: 73-73-5770Avt Needle, Diabetic (Ulticare Pen Needle) 31 gauge x 3/16 needle Start: 05-13-2024 End: 35-89-6815Vrv Needle, Diabetic (Ulticare Pen Needle) 31 gauge x 3/16 needleStart: 05-13-2024 End: 96-88-1537Gua Needle, Diabetic 31 gauge x 5/16 needleStart: 09-12-2024 End: 65-27-0412Ukh Needle, Diabetic (Ulticare Pen Needle) 31 gauge x 3/16 needleStart: 89-91-4775Bos Needle, Diabetic 31 gauge x 5/16 needleStart: 78-66-0311Did Needle, Diabetic (Ulticare Pen Needle) 31 gauge x 3/16 needle Start: 05-13-2024 End: 43-72-4564Xdo Needle, Diabetic (Ulticare Pen Needle) 31 gauge x 3/16 needleStart: 05-13-2024 End: 11-60-6405Zzz Needle, Diabetic 31 gauge x 5/16 needleStart: 09-12-2024 End: 05-00-8424Uzr Needle, Diabetic (Ulticare Pen Needle) 31 gauge x 3/16 needleStart: 24-44-5340Xaq Needle, Diabetic 31 gauge x 5/16 needleStart: 51-77-6046Roe Needle, Diabetic (Ulticare Pen Needle) 31 gauge x 3/16 needle Start: 05-13-2024 End: 00-10-0808Xto Needle, Diabetic (Ulticare Pen Needle) 31 gauge x 3/16 needleStart: 05-13-2024 End: 77-63-6555Qsu Needle, Diabetic 31 gauge x 5/16 needleStart: 09-12-2024 End: 66-14-0034Izn Needle, Diabetic (Ulticare Pen Needle) 31 gauge x 3/16 needleStart: 58-85-2931Ith Needle, Diabetic 31 gauge x 5/16 needleStart: 92-43-6974Atz Needle, Diabetic (Ulticare Pen Needle) 31 gauge x 3/16 needle Start: 05-13-2024 End: 85-85-5268Eva Needle, Diabetic (Ulticare Pen Needle) 31 gauge x 3/16 needleStart: 05-13-2024 End: 94-13-6431Rhq Needle, Diabetic 31 gauge x 5/16 needleStart: 09-12-2024 End: 09-12-2024 Goals DatePatient GoalDesired Activity/State Functional Status AdooFxiufdwmwdSlgduyNqwvghcs72-45-6329Wgscnim Health Questionnaire 2 item (PHQ- 2) [Reported][facility] Clinical Notes 12-31-2014 to 10-11-2025 Note Date & RjmiBxihWmefmwac65-53-9220 Telephone encounter Note* Telephone Encounter - Margarita Cate - 10/11/2025 10:44 AM EST Pt called stating she can not check her blood sugar until she gets a new dexcom G7 Sensor and the company that usually sends the Pt this does not know when it will be sent and she is going out of town and she is uncomfortable going when she can not check her blood sugar because that is what she bases her insulin off of. Pt would like a call back at [phone] [facility]Upsljvzoeb33-53-6863 Miscellaneous Notes* Telephone Encounter - Margarita Esposito - 10/11/2025 10:44 AM EST Pt called stating she can not check her blood sugar until she gets a new dexcom G7 Sensor and the company that usually sends the Pt this does not know when it will be sent and she is going out of town and she is uncomfortable going when she can not check her blood sugar because that is what she bases her insulin off of. Pt would like a call back at [phone] to discuss this. documented in this encounterTenet St. LouisBcxoegoaiq11-84-5938 History of Present illness Narrative* Shaina Munroe, [...] 2 diabetes mellitus with Charcot's joint arthropathy ([facility]) Long-term insulin use ([facility]) Spondylolisthesis at L3-L4 level S/P laparoscopic cholecystectomy Other hammer toe(s) (acquired), left foot Chronic foot ulcer ([facility]) Carpal tunnel syndrome of right wrist Class 2 severe obesity with serious comorbidity and body mass index (BMI) of 35.0 to 35.9 in adult ([facility]) Type 2 diabetes mellitus with both eyes affected by mild nonproliferative retinopathy without macular edema, with long-term current use of insulin ([facility]) Social History Tobacco Use Smoking status: Never [...] daily 50 units) (100 UNIT/ML SOPN) Labs [facility] HEMOGLOBIN A1C/HEMOGLOBIN.TOTAL:MFR:PT:BLD:QN: 8.1 Outpatient prescription Medication marked [...] Charcot's joint arthropathy (HCC) Long-term insulin use ([facility]) Class 2 severe obesity with serious comorbidity and body mass index (BMI) of 35.0 to 35.9 in adult ([facility]) Type 2 diabetes mellitus with both eyes affected by mild nonproliferative retinopathy without macular edema, with long-term current use of insulin ([facility]) Follow up in about 3 months (around [...] PO) Take by mouth CONTINUOUS BLOOD GLUC BEEF BREAKER (DEXCOM G7 BEEF BREAKER) DEVICE USE DIRECTED CONTINUOUS BLOOD GLUC SENSOR [...] with the patient today. documented in this encounterTenet St. LouisBtdhezowss07-14-0751 Evaluation note* Diagnosis Onset Date Resolution Status Admit Date Chronic pain acuteJuly 2024 8:03amSacroiliitis, not elsewhere classifiedacuteJuly 2024 8:03amTrochanteric bursitisacuteJuly 2024 8:03am [facility] Work Phone: 1(819) 469-680007-02-2025 Evaluation note* Diagnosis Onset Date Resolution Status Admit Date Chronic pain acuteJuly 2024 8:03amSacroiliitis, not elsewhere classifiedacuteJuly 2024 8:03amTrochanteric bursitisacuteJuly 2024 8:03amChronic painacuteJuly 2024 9:03amSacroiliitis, not elsewhere classifiedacuteJuly 2024 9:03amTrochanteric bursitisacuteJuly 2024 9:03am [facility] Work Phone: 1(307) 370-339307-02-2025 Evaluation note* Diagnosis Onset Date Resolution Status Admit Date Chronic pain acuteJuly 2024 8:03amSacroiliitis, not elsewhere classifiedacuteJuly 2024 8:03amTrochanteric bursitisacuteJuly 2024 8:03amChronic painacuteJuly 2024 9:03amSacroiliitis, not elsewhere classifiedacuteJuly 2024 9:03amTrochanteric bursitisacuteJuly 2024 9:03amDiabetic foot ulcer associated with type 2 diabetes mellitus, with fat layeacuteAugust 2024 7:36amMRSA bacteremiaacuteAugust 2024 7:36amOral thrushacuteAugust 2024 7:36am [facility] Work Phone: 1([phone]) 942-840506-16-2025 History of Present illness Narrative* Shaina Munroe [...] 35.0 to 35.9 in adult ([facility]) Type 2 diabetes mellitus with both eyes affected by mild nonproliferative retinopathy without macular edema, with long-term current use of insulin ([facility]) Social History Tobacco Use Smoking status: Never [...] units dinner (500 UNIT/ML SOPN) -Discontinued Labs [facility] HEMOGLOBIN A1C/HEMOGLOBIN.TOTAL:MFR:PT:BLD:QN: 8.1 Outpatient prescription Medication marked [...] KWIKPEN) 100 UNIT/ML injection insulin pen needle ([employer] Pentips) 31G X 8 mm misc Other Relevant Orders POCT glycosylated hemoglobin (Hb A1C) docked device (Completed) 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) - Primary Long-term insulin use ([facility]) Class 2 severe obesity with serious comorbidity and body mass index (BMI) of 35.0 to 35.9 in adult ([facility]) Type 2 diabetes mellitus with both eyes affected by mild nonproliferative retinopathy without macular edema, with long-term current use of insulin ([facility]) Follow up in about 3 months (around [...] PO) Take by mouth CONTINUOUS BLOOD GLUC BEEF BREAKER (DEXCOM G7 BEEF BREAKER) DEVICE USE DIRECTED CONTINUOUS BLOOD GLUC SENSOR [...] PENTIPS) 31G X 8 MM MISC Drug [place] Unifine Pentips 31G X 8 MMmisc Injection subcutaneous tid USE DIRECTED Discontinued Medications No medications on file I have reviewed and reconciled the history and medication list with the patient today. documented in this encounterTenet St. LouisPgolmopeyz21-31-5057 Evaluation note* Diagnosis Onset Date Resolution Status Admit Date CKD (chronic kidney disease) stage 2, GF R 60-89 ml/min acuteApril 2024 7:41amConstipationacuteApril 2024 7:41amDiabetic neuropathyacuteApril 2024 7:41amFamily history of dementiaacuteApril 2024 7:41amRotator cuff syndrome of right shoulderacuteApr2024 7:41am Spondylolisthesis, lumbar regionacuteApril 2024 7:41amChronic painacuteJuly 2024 8:03amOsteoarthritis of spine with radiculopathy, lumbar regionacute May 31, 2025 8:03amOther low back painacuteJuly 2024 8:03amTrochanteric bursitisacuteJuly 2024 8:03am [facility] Work Phone: 1(951) 674-196602-19-2025 Evaluation note* Diagnosis Onset Date Resolution Status [...] 06, 2025 7:41amSpondylolisthesis, lumbar regionacuteApril 2024 7:41am [facility] Work Phone: 1(302) 199-432302-10-2025 Evaluation note* Author France Carlson [facility] 2024 11:30amThe above note written by ITZ Teresa acting as human recorder, note dictated by Dr. Charan Casey. [facility] Work Phone: 1(546) 585-413902-10-2025 Telephone encounter Note* Telephone Encounter - Kati Clint - 01/09/2025 1:09 PM EST Pt's spouse called to ask if Dr. Merritt has any dexcom G7 sensors. She has been without for over aweek. Her prescription has been delayed due to insurance issues, She is having an injection tomorrow and is worried about her bg readings. [facility] [employer] [id number] Miscellaneous Notes* Telephone Encounter - Kati Jaramillo - 01/09/2025 1:09 PM EST Pt's spouse called to ask if Dr. Merritt has any dexcom G7 sensors. She has been without for over aweek. Her prescription has been delayed due to insurance issues, She is having an injection tomorrow and is worried about her bg readings. documented in this encounterTenet St. LouisQrngmvsqjp60-11-2644 Evaluation note* Author France Carlson [facility] 2024 10:30amThe above note written by ITZ Teresa acting as human recorder, note dictated by Dr. Charan Casey. [facility] Work Phone: 1(334) 160-429311-20-2024 Evaluation note* Diagnosis Onset Date Resolution Status Admit Date Chronic pain acuteNovember 2023 8:01amOsteoarthritis of spine with radiculopathy, lumbar regionacuteNov2023 8:01amArthrosis of right acromioclavicular jointacuteNovember 2023 8:44amRotator cuff syndrome of right shoulder acuteNovember 2023 8:44amCoughacuteJanuary 2024 10:00amChronic pain acuteJanuary 2024 9:01amOsteoarthritis of spine with radiculopathy, lumbar regionacuteJanuary 2024 9:01am [facility] Work Phone: 1(622) 982-223711-20-2024 Evaluation note* Diagnosis Onset Date Resolution Status [...] of right shoulderacute December 29, 2024 7:33am [facility] Work Phone: 1([phone]) 561-357211-19-2024 History of Present illness Narrative* Shaina Munroe DO - 10/18/2024 8:35 PM ESTAssociated Problem(s): Type 2 diabetes mellitus with peripheral neuropathy ([facility]/HCC) During the appointment today all pertinent labs, [...] Charcot's joint arthropathy (CMS/HCC) Long-term insulin use ([facility]) Class 2 severe obesity with serious comorbidity and body mass index (BMI) of 39.0 to 39.9 in adult ([facility]) Type 2 diabetes mellitus with both eyes affected by mild nonproliferative retinopathy without macular edema, with long-term current use of insulin ([facility]) Follow up in about 4 months (around 02/14/2025) for Recheck. Patient's Medications New Prescriptions No medications on file Previous Medications ALLOPURINOL (ZYLOPRIM) 100 MG TABLET Take 100 mg by mouth in the morning. ASPIRIN 81 MG CHEWABLE TABLET 1 (one) time each day at the same time. BENICAR 40 MG TABLET 1 (one) time each day at the same time. CONTINUOUS BLOOD GLUC BEEF BREAKER (DEXCOM G7 BEEF BREAKER) DEVICE USE DIRECTED CONTINUOUS BLOOD GLUC SENSOR [...] with the patient today. documented in this encounterTenet St. LouisIsuewrxpnj12-56-7227 Procedure noteChildren[facility] Evaluation note* Diagnosis Onset Date Resolution Status Admit Date Chronic pain acuteOctober 2023 8:03amOsteoarthritis of spine with radiculopathy, lumbar regionacuteOctober 2023 8:03amSacroiliitis, not elsewhere classifiedacute September 12, 2024 8:03amChronic painacuteNovember 2023 8:01am Osteoarthritis of spine with radiculopathy, lumbar regionacuteNovember 2023 8:01am [facility] Work Phone: 1(872) 646-996710-14-2024 Evaluation note* Diagnosis Onset Date Resolution Status Admit Date Chronic pain acuteOctober 2023 8:03amOsteoarthritis of spine with radiculopathy, lumbar regionacuteOctober 2023 8:03amSacroiliitis, not elsewhere classifiedacute September 12, 2024 8:03amChronic painacuteNovember 2023 8:01am Osteoarthritis of spine with radiculopathy, lumbar regionacuteNovember 2023 8:01amArthrosis of right acromioclavicular jointacuteNovember 2023 8:44amRotator cuff syndrome of right shoulderacuteNov2023 8:44am [facility] Work Phone: 1(527) 846-857210-14-2024 Evaluation note* Diagnosis Onset Date Resolution Status Admit Date Chronic pain acuteOctober 2023 8:03amOsteoarthritis of spine with radiculopathy, lumbar regionacuteOctober 2023 8:03amSacroiliitis, not elsewhere classifiedacute September 12, 2024 8:03amChronic painacuteNovember 2023 8:01am Osteoarthritis of spine with radiculopathy, lumbar regionacuteNovember 2023 8:01amArthrosis of right acromioclavicular jointacuteNovember 2023 8:44amRotator cuff syndrome of right shoulderacuteNovember 2023 8:44am CoughacuteJanuary 2024 10:00am [facility] Work Phone: 1([phone]) 828-719809-26-2024 History of Present illness Narrative* Rosalinda Torres [...] remains way above target and due to Jjrgxum-Obkjt-Ghcni joints she has limited exercise capacity. Her [...] machine patient has been compliant with it. 1-Arkkogm-Fqroj-Tooth joint in the ankles status post recent [...] , Rfl: ergocalciferol (Vitamin D-2) 1.25 MG (60526 UT) capsule, Take 1 capsule (50,000 Units) [...] type, unspecified whether angina present, unspecified whether eek or transplanted heart Follow Up In Cardiology [...] exam, discussion and plan. [facility]Ad[facility] Work Phone: 1(697) 612-773309-26-2024 Instructions* Patient Instructions* Enedina Isidro LPN - [...] Provided instructions on exercise. documented in this [facility] Work Phone: 1(671) 599-941107-02-2024 Procedure noteChildren'S [facility] Rehabilitation03-25-2024 History of Present illness Narrative* Rosalinda Torres [...] She has orthopedic problems resulting from her Unrnmyl-Opujm-Lrdvg disease. Her labs have been followed closely. [...] machine patient has been compliant with it. 7-Ymlqusd-Uewky-Tooth joint in the ankles status post recent [...] , Rfl: ergocalciferol (Vitamin D-2) 1.25 MG (44203 UT) capsule, Take 1 capsule (50,000 Units) [...] type, unspecified whether angina present, unspecified whether eek or transplanted heart Follow Up In Cardiology 2. Essential hypertension 3. 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 4. Hyperlipidemia, unspecified hyperlipidemia type 5. Obstructive sleep apnea syndrome 6. Class 2 obesity with body mass index (BMI) of 37.0 to 37.9 in adult, unspecified obesity type, unspecified whether serious comorbidity present 7. Insulin-requiring or dependent type II diabetes mellitus ([facility]) Scribe Attestation By signing my name below, [...] exam, discussion and plan. documented in this [facility] Work Phone: 1(703) 362-719003-25-2024 Instructions* Patient Instructions* Enedina Isidro LPN - [...] 6 m Same medications documented [facility]Ad[facility] Work Phone: 1(518) 437-482501-31-2024 Evaluation note* Encounter Date Diagnosis Assessment Notes [...] to call if she does not improve. [employer] Other 12-05-2023 Evaluation note* Encounter Date Diagnosis Assessment Notes Treatment Notes Treatment Clinical Notes Oct, Hyperlipidemia (ICD-10 - E78.5) [employer] Other 11-29-2023 Evaluation note* Encounter Date Diagnosis Assessment Notes Treatment Notes Treatment Clinical Notes Sep, Trochanteric bursitis of left hi p (ICD-10 - M70.62) [employer] Other 11-29-2023 Evaluation note* Encounter Date Diagnosis [...] Sep,OtherAbove note written by Willi Leiva MA, Hypo Splasher. Edited and approved by Dr. Blas Ortiz MD. [employer] Other 11-22-2023 Evaluation note* Encounter Date Diagnosis [...] of symptoms occur by end of treatment. [employer] Other 11-20-2023 Evaluation note* Encounter Date Diagnosis Assessment Notes Treatment Notes Treatment Clinical Notes Sep, Cervical spondylosis without mye lopathy (ICD-10 - M47.812) [employer] Other 11-08-2023 Evaluation note* Encounter Date Diagnosis Assessment Notes Treatment Notes Treatment Clinical Notes Sep, Hypertensive chronic kidney disease with stage 1 through stage 4 chronic kidney disease, or unspecified chronic kidney disease (ICD-10 - I12.9) [employer] Other 11-07-2023 History and physical note Author Yasmeen Treadwell [facility] October 06, 2023 8:31amNote Date/TimeNov2022 8:31am[place] [id number] Gastroenterology H&P Signed Patient: Rita Cobb MR#: [id number] 365 : 1960 Acct:[id number] Age/Sex: 62 / F Adm Date: 3 Loc: Room: Type: [facility] Attending Dr: Yasmeen Treadwell MD [...] signed by Yasmeen Treadwell MD> 10/06/23 0831 [facility] Work Phone: 1(511) 551-845411-07-2023 Procedure noteChildren'[facility] Rehabilitation10-25-2023 Evaluation note* Encounter Date Diagnosis Assessment Notes [...] Aug,OtherAbove note written by Corina Sánchez LPN, Hypo Splasher. Edited and approved by Dr. Blas Ortiz MD. [facility] Other 10-17-2023 Evaluation note* Encounter Date Diagnosis [...] risk of worsening renal function and hematuria. [employer] Other 09-19-2023 Evaluation note* Encounter Date Diagnosis Assessment Notes Treatment Notes Treatment Clinical Notes Jul, Hyperuricemia (ICD-10 - E79.0) Jul,iabetic neuropathy (ICD-10 - E11.40) [employer] Other 09-18-2023 Evaluation note* Encounter Date Diagnosis [...] Jul,OtherAbove note written by Corina Sánchez LPN, Hypo Splasher. Edited and approved by Dr. Blas Ortiz MD. [employer] Other 09-12-2023 Evaluation note* Encounter Date Diagnosis [...] Jul,Low back pain, unspecified (ICD-10 - M54.50) [facility] [facility] Other 09-06-2023 Evaluation note* Encounter Date Diagnosis [...] Jul,Screening for colon cancer (ICD-10 - Z12.11) [facility] [facility] Other 08-03-2023 Evaluation note* Encounter Date Diagnosis Assessment Notes Treatment Notes Treatment Clinical Notes Jun, Type 2 diabetes wicho itus with diabetic neuropathy, unspecified (ICD-10 - E11.40) [facility] [facility] Other 06-20-2023 Evaluation note* Encounter Date Diagnosis [...] M47.812) Refill provided of the above medication. [facility] [facility] Other 06-06-2023 Evaluation note* Encounter Date Diagnosis Assessment Notes Treatment Notes Treatment Clinical Notes Apr, Type 2 diabetes wicho itus with diabetic neuropathy, unspecified (ICD-10 - E11.40) [employer] [facility] Other 05-15-2023 NotePROCEDURE: XR FOOT LT 2V HISTORY: Pain COMPARISON: XR foot left 04/07/2023 FINDINGS: BONES:Several intraoperative spot fluoroscopic images demonstrate removal of 3 separate lag screws fixating the second and fourth metatarsophalangeal joints. SOFT TISSUES:Expected intraoperative findings. OTHER: Negative. IMPRESSION: 1. Hardware revision involving left midfoot. Electronically authenticated by: BLANKA OLGUIN Date: 2023-04-13 11:35[facility]05-15-2023 NotePROCEDURE: XR FOOT LT MIN 3 [...] by: BLANKA OLGUIN Date: 2023-04-13 11:29[facility]05-09-2023 NotePROCEDURE: XR FOOT LT MIN 3 [...] by: BLANKA OLGUIN Date: 2023-04-07 13:31[facility]05-08-2023 Evaluation note* Encounter Date Diagnosis Assessment Notes Treatment Notes Treatment Clinical Notes March, Type 2 diabetes wicho itus with diabetic neuropathy, unspecified (ICD-10 - E11.40) March,Type 2 diabetes mellitus with hyperglycemia, without long-term current use of insulin (ICD-10 - E11.65) [facility] [facility] Other 05-02-2023 Evaluation note* Encounter Date Diagnosis [...] as scheduled. Most recent A1C was 7.0. [employer] [facility] Other 04-27-2023 Evaluation note* Encounter Date Diagnosis Assessment Notes Treatment Notes Treatment Clinical Notes Feb, Hypertensive chronic kidney disease with stage 1 through stage 4 chronic kidney disease, or unspecified chronic kidney disease (ICD-10 - I12.9) Feb,Type 2 diabetes mellitus with diabetic neuropathy, unspecified (ICD- 10 - E11.40) [facility] [facility] Other 04-11-2023 Evaluation note* Encounter Date Diagnosis [...] have advised to continue with oral magnesium. [facility] [facility] Other 04-05-2023 Evaluation note* Encounter Date Diagnosis Assessment Notes Treatment Notes Treatment Clinical Notes Feb, Hyperlipidemia (ICD-10 - E78.5) [facility] [facility] Other 04-05-2023 Evaluation note* Encounter Date Diagnosis Assessment Notes Treatment Notes Treatment Clinical Notes Feb, Obstructive apnea (ICD-10 - G47. 33) Feb,Insomnia (ICD-10 - G47.00) Feb,Neuropathy (ICD-10 - G62.9) [facility] [facility] Other 04-05-2023 NotePROCEDURE: XR FOOT LT MIN [...] by: BLANKA OLGUIN Date: 2023-03-04 06:39[facility]03-20-2023 Evaluation note* Encounter Date Diagnosis Assessment Notes Treatment Notes Treatment Clinical Notes Jan, Hypertensive chronic kidney disease with stage 1 through stage 4 chronic kidney disease, or unspecified chronic kidney disease (ICD-10 - I12.9) Jan,iabetic neuropathy (ICD-10 - E11.40) [facility] [facility] Other 03-09-2023 Evaluation note* Encounter Date Diagnosis Assessment Notes Treatment Notes Treatment Clinical Notes Jan, Hyperuricemia (ICD-10 - E79.0) [facility] [facility] Other 03-08-2023 NotePROCEDURE: XR FOOT LT MIN [...] by: BRODERICK FLOR Date: 2023-02-04 09:36[facility]02-22-2023 NotePROCEDURE: XR FOOT LT MIN 3 [...] by: BLANKA OLGUIN Date: 2023-01-21 10:26[facility]02-20-2023 Evaluation note* Encounter Date Diagnosis Assessment Notes Treatment Notes Treatment Clinical Notes Dec, Diabetic neuropathy (ICD-10 - E1 1.40) [employer] [facility] Other [id number] NotePROCEDURE: XR FOOT LT MIN 3 VIEWS, [...] by: BLANKA OLGUIN Date: 2022-12-29 17:33[facility]01-30-2023 NotePROCEDURE: XR FOOT LT MIN 3 [...] by: BLANKA OLGUIN Date: 2022-12-29 17:33[facility]01-30-2023 NotePROCEDURE: XR FOOT LT 2V HISTORY: Pain COMPARISON: XR foot bilateral 11/12/2022 FINDINGS: BONES:Multiple intraoperative spot fluoroscopic images demonstrate resection of the bases of the metatarsals followed by midfoot fusion via lag screws. Talocalcaneal fusion. SOFT TISSUES:Expected intraoperative findings. IMPRESSION: 1. Midfoot resection and fusion. 2. Talocalcaneal fusion. Electronically authenticated by: BLANKA OLGUIN Date: 2022-12-29 17:31[facility]01-24-2023 NoteEXAM: XR CHEST 2 V HISTORY: [...] by: ACOSTA JOHNSON Date: 2022-12-23 12:48[facility]11-29-2022 Evaluation note* Encounter Date Diagnosis Assessment Notes Treatment Notes Treatment Clinical Notes Sep, Encounter for immunization (ICD- 10 - Z23) Patient presents today for Shingrix vaccination #1 of 2. Patient denies current acute illness, denies any past allergy or serious reaction to previousvaccine or ingredients. Shingrix Vaccine material and current VIS discussed and provided to patient. [employer] [facility] Other 11-17-2022 Evaluation note* Encounter Date Diagnosis Assessment Notes Treatment Notes Treatment Clinical Notes Sep, Encounter for immunization (ICD- 10 - Z23) Patient denies current illness, previous allergic reaction to influenza vaccine, eggs, or other vaccines, and Guillain-[place] Syndrome. Patient given current editions of influenza Vaccine Information Statement (VIS). [facility] [facility] Other 11-17-2022 Evaluation note* Encounter Date Diagnosis Assessment Notes Treatment Notes Treatment Clinical Notes Sep, Hypertensive chronic kidney disease with stage 1 through stage 4 chronic kidney disease, or unspecified chronic kidney disease (ICD-10 - I12.9) [facility] [facility] Other 11-17-2022 Evaluation note* Encounter Date Diagnosis Assessment Notes Treatment Notes Treatment Clinical Notes Sep, Encounter for immunization (ICD- 10 - Z23) Patient presents today for COVID-19 vaccination booster. Patient pre-vaccination form answers reviewed. Patient denies current illness or allergic reaction to any component of a COVD-19 vaccine. Patient provided with copy of current EUA. [facility] [facility] Other 10-26-2022 Evaluation note* Encounter Date Diagnosis [...] her to take a low phosphorus diet. [employer] [facility] Other 10-04-2022 Evaluation note* Encounter Date Diagnosis [...] E11.40) Pateint continues on the above medications. [facility] [facility] Other 09-08-2022 Evaluation note* Encounter Date Diagnosis Assessment Notes Treatment Notes Treatment Clinical Notes Jul, Diabetic neuropathy (ICD-10 - E1 1.40) [facility] [facility] Other 08-17-2022 Evaluation note* Encounter Date Diagnosis Assessment Notes Treatment Notes Treatment Clinical Notes Jun, Hyperlipidemia (ICD-10 - E78.5) Jun,KD (chronic kidney disease) stage 3, GFR 30-59 ml/min (ICD-10 - N18.3) Jun,Essential hypertension (ICD-10 - I10) [facility] [facility] Other 08-03-2022 Evaluation note* Encounter Date Diagnosis Assessment Notes Treatment Notes Treatment Clinical Notes Jun, Type 2 diabetes wicho itus with diabetic neuropathy, unspecified (ICD-10 - E11.40) [facility] [facility] Other 06-01-2022 Evaluation note* Encounter Date Diagnosis Assessment Notes Treatment Notes Treatment Clinical Notes Apr, Obstructive apnea (ICD-10 - G47. 33) Apr,Insomnia (ICD-10 - G47.00) Apr,Neuropathy (ICD-10 - G62.9) [facility] [facility] Other 05-16-2022 Evaluation note* Encounter Date Diagnosis [...] Patient is to continue to follow with paper bag maker as scheduled. March,hortness of breath (ICD-10 - R06.02) Patient is to continue to follow with the paper bag maker as scheduled. March,arathyroid disease (ICD-10 - E21.5) Patient is to continue to follow with the specialist as scheduled. March,harcot foot due to diabetes mellitus (ICD-10 - E11.610) Patient is to continue to follow with as scheduled. [facility] [facility] Other 05-09-2022 Evaluation note* Encounter Date Diagnosis Assessment Notes Treatment Notes Treatment Clinical Notes March, Type 2 diabetes wicho itus with diabetic neuropathy, unspecified (ICD-10 - E11.40) March,Type 2 diabetes mellitus with hyperglycemia, without long-term current use of insulin (ICD-10 - E11.65) [facility] [facility] Other 03-24-2022 Evaluation note* Encounter Date Diagnosis [...] her to take a low phosphorus diet. [employer] [facility] Other 03-11-2022 Evaluation note* Encounter Date Diagnosis [...] her symptoms worsen. 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 I did provide a work note excuse today. Jan,hortness of breath (ICD-10 - R06.02) In house EKG ordered and reviewed. Cardiac consult recommended as above. Jan,iabetic neuropathy (ICD-10 - E11.40) Worsening bilateral neuropathy reported by the patient . she has been consulting with industrial psychology professor who per patient has suggested it may [...] The patient encourged to follow up with chemistry specialist as scheduled, discussion was had she would benefit from a pulmonary function test. [facility] [facility] Other 02-22-2022 Evaluation note* Encounter Date Diagnosis Assessment Notes Treatment Notes Treatment Clinical Notes Dec, Type 2 diabetes wicho itus with diabetic neuropathy, unspecified (ICD-10 - E11.40) [facility] [facility] Other 01-04-2022 Evaluation note* Encounter Date Diagnosis [...] deficiency (ICD-10 - E55.9) Blood work ordered. [facility] [facility] Other 02-01-2015 History general Narrative - Reported* Type Description Date Medical History DM2 Medical HistoryHTNMedical HistorySleep apneaMedical Historyhypercalcemia due [facility] HistoryneuropathyMedical History12/2014 colonscopy refusedMedical History12/31/2015 MRI left kneeMedical History04/15/19 colonoscopy refused; cologuard orderedMedical Muoxhuf69/19/19 Colonoscopy-abnormal repeat in 4 years (pos cologuard)Medical Iwoocbt49/2019 Pap w/ Dr. Hesteredical History Skin ulcer of left foot, limited to breakdown of skinMedical HistorySepsis, unspecified organismMedical HistoryH/O parathyroidectomyMedical HistoryRIGHT FOOT FRACTURESurgical Historycervical fusion and low back ocaaqx4455Bdvyamtz HistoryProcedure:;Disease:Rcusfpuht6775Hqtfsytp Historyprevious cervical uchzxm8057Pzivnwpj HistoryProcedure:;Disease:Ksymzpflq6929Fjafgafh History c/qzfpcsu7968Hxvxdwyw HistoryProcedure:;Disease:Ddngpocpg7432Hfbawnwe Jpcialymviwajebql9603Fnnhxfvh HistoryProcedure:tubal ligationSurgical History Procedure:Low back fusionSurgical Historytubal apkcuoru6346Lvjzpawx History2 parathyroids /2013Surgical HistoryProcedure:cervical fusionSurgical HistoryBilateral eyelid [place]75/2012Surgical HistoryProcedure:x2 thyroid glands zaqifte8427Lyslnltv Historyleft knee arthoscopy02/2016Surgical History lithotripsy03/2015Surgical Historyleft knee arthroscopy02/2016Surgical History partial left knee replacement12/2016Surgical Historyincision and drainage necrotizing fasciiitis seroma/bullae left lateral ankle/midfoot12/27/17urgical Historypartial left knee weuelzcxpzf58/2017Surgical HistoryI&D, debridement necrotizing fasciitis left ankle12/27/2017Surgical HistoryLeft ankle I & D1-2018 Surgical HistoryGallbladder01/2018Surgical HistoryLap. cholecystectomy02/17/2018 Surgical Akdonbahkiqmbousxj36/19/2019Surgical HistoryColonoscopy06/17/2019 Surgical Historylow back dkkfoen6607/25/2020Hospitalization Nwmcfzatonbrnmbxgk8952 Hospitalization Historynecrotizing fasciitis11/2017Hospitalization Historysee above [employer] Other 02-01-2015 History general Narrative - Reported* Type Description Date Medical History DM2 Medical HistoryHTNMedical HistorySleep apneaMedical Historyhypercalcemia due to PHT [facility] HistoryneuropathyMedical History12/2014 colonscopy refusedMedical History12/31/2015 MRI left kneeMedical History04/15/19 colonoscopy refused; cologuard orderedMedical Smnznzl07/19/19 Colonoscopy-abnormal repeat in 4 years (pos cologuard)Medical Miwzsdn58/2019 Pap w/ Dr. SeymourerMedical History Skin ulcer of left foot, limited to breakdown of skinMedical HistorySepsis, unspecified organismMedical HistoryH/O parathyroidectomyMedical HistoryRIGHT FOOT FRACTURESurgical Historycervical fusion and low back mgcymr8316Gtrlmxby HistoryProcedure:;Disease:Nchfpdizr3811Wimlhygh Historyprevious cervical ayyzgi2583Byutling HistoryProcedure:;Disease:Vkytcwhvl4743Gwnjfxzr History c/sqqhima3011Qhvqlkjd HistoryProcedure:;Disease:Zowejvjuu4757Kgfzgbro Suhmytphrcpgaqxdu2018Ztegbhzr HistoryProcedure:tubal ligationSurgical History Procedure:Low back fusionSurgical Historytubal cbycjbiy5869Ourexvqc History2 parathyroids clfmfis47/2013Surgical HistoryProcedure:cervical fusionSurgical HistoryBilateral eyelid idqzmih83/2012Surgical HistoryProcedure:x2 thyroid glands mqrwyxs2891Zordwcsb Historyleft knee arthoscopy02/2016Surgical History lithotripsy03/2015Surgical Historyleft knee arthroscopy02/2016Surgical History partial left knee replacement12/2016Surgical Historyincision and drainage necrotizing fasciiitis seroma/bullae left lateral ankle/midfoot12/27/17urgical Historypartial left knee /2017Surgical HistoryI&D, debridement necrotizing fasciitis left ankle12/27/2017Surgical HistoryLeft ankle I & D1-2018 Surgical HistoryGallbladder01/2018Surgical HistoryLap. cholecystectomy02/17/2018 Surgical Nmewmujnliitakbmaq89/19/2019Surgical HistoryColonoscopy06/17/2019 Surgical Historylow back jflfyqy0607/25/2020Surgical HistoryCardiac cath with stent placement mid LAD03/27/2022Hospitalization Tsuuxkjxeunyuwrnxg5995 Hospitalization Historynecrotizing fasciitis11/2017Hospitalization Historysee above [employer] Other 02-01-2015 History general Narrative - Reported* Type Description Date Medical History DM2 Medical HistoryHTNMedical HistorySleep apneaMedical Historyhypercalcemia due to PHT s/p surgery [facility] HistoryneuropathyMedical History12/2014 colonscopy refusedMedical History12/31/2015 MRI left kneeMedical History04/15/19 colonoscopy refused; cologuard orderedMedical Mihfwcp52/19/19 Colonoscopy-abnormal repeat in 4 years (pos cologuard)Medical Jckddig49/2019 Pap w/ Dr. SeymourerMedical History Skin ulcer of left foot, limited to breakdown of skinMedical HistorySepsis, unspecified organismMedical HistoryH/O parathyroidectomyMedical HistoryRIGHT FOOT FRACTUREMedical HistoryLEFT FOOT LUCAS SEEING PODIATRISTSurgical History cervical fusion and low back jqmmsk3108Gcjfyhmq History Procedure:;Disease:Vbiiaqgyx6592Qtvjjdpv Historyprevious cervical fusion 1997Surgical HistoryProcedure:;Disease:Tevtoyxcp9996Dfmohmyj History c/izcrjuq2399Swiigaqk HistoryProcedure:;Disease:Ebionzovy2043Ezzuffbp Hhshtfroyancvibvz6340Gfegpcsd HistoryProcedure:tubal ligationSurgical History Procedure:Low back fusionSurgical Historytubal qaytrsdf8868Wepuwfin History2 parathyroids /2013Surgical HistoryProcedure:cervical fusionSurgical HistoryBilateral eyelid jnjetav17/2012Surgical HistoryProcedure:x2 thyroid glands vctofev7827Zemylekh Historyleft knee arthoscopy02/2016Surgical History lithotripsy03/2015Surgical Historyleft knee arthroscopy02/2016Surgical History partial left knee replacement12/2016Surgical Historyincision and drainage necrotizing fasciiitis seroma/bullae left lateral ankle/midfoot12/27/urgical Historypartial left knee qfsjjxitexr73/2017Surgical HistoryI&D, debridement necrotizing fasciitis left ankle12/27/2017Surgical HistoryLeft ankle I & D1-2018 Surgical HistoryGallbladder01/2018Surgical HistoryLap. cholecystectomy02/17/2018 Surgical Cptsklnentjboqyfka86/19/2019Surgical HistoryColonoscopy06/17/2019 Surgical Historylow back trdnoxc7307/25/2020Surgical HistoryCardiac cath with stent placement mid LAD03/27/2022Hospitalization Juzvfxfaabqvdrguwv8888 Hospitalization Historynecrotizing fasciitis11/2017Hospitalization Historysee above [employer] Other 02-01-2015 History general Narrative - Reported* Type Description Date Medical History DM2 Medical HistoryHTNMedical HistorySleep apneaMedical Historyhypercalcemia due to [facility] HistoryneuropathyMedical History12/2014 colonscopy refusedMedical History12/31/2015 MRI left kneeMedical History04/15/19 colonoscopy refused; cologuard orderedMedical Kvuxvod34/19/19 Colonoscopy-abnormal repeat in 4 years (pos cologuard)Medical Yttunps77/2019 Pap w/ Dr. SeymourerMedical History Skin ulcer of left foot, limited to breakdown of skinMedical HistorySepsis, unspecified organismMedical HistoryH/O parathyroidectomyMedical HistoryRIGHT FOOT FRACTUREMedical HistoryLEFT FOOT LUCAS SEEING PODIATRISTSurgical History cervical fusion and low back gwtivo9866Wdprlwvz History Procedure:;Disease:Loblztufb6130Nkxkcble Historyprevious cervical fusion 1997Surgical HistoryProcedure:;Disease:Rsrgdfdex2782Tulcfplm History c/zsepxlo9487Brevlggf HistoryProcedure:;Disease:Mpqebaigm5910Yhexfmxl Ifudthwaaskxxrzuh6763Dhmeiqjb HistoryProcedure:tubal ligationSurgical History Procedure:Low back fusionSurgical Historytubal vvhrtrdh8091Lcqqmbgx History2 parathyroids rgabqme43/2013Surgical HistoryProcedure:cervical fusionSurgical HistoryBilateral eyelid etixdbb52/2012Surgical HistoryProcedure:x2 thyroid glands ccymqnx3118Pybkzscb Historyleft knee arthoscopy02/2016Surgical History lithotripsy03/2015Surgical Historyleft knee arthroscopy02/2016Surgical History partial left knee replacement12/2016Surgical Historyincision and drainage necrotizing fasciiitis seroma/bullae left lateral ankle/midfoot12/27/urgical Historypartial left knee wmggokjfqjd99/2017Surgical HistoryI&D, debridement necrotizing fasciitis left ankle12/27/2017Surgical HistoryLeft ankle I & D1-2017 Surgical HistoryGallbladder01/2018Surgical HistoryLap. cholecystectomy02/17/2018 Surgical Yrwiwvnuhfnghyymvb89/19/2019Surgical HistoryColonoscopy06/17/2019 Surgical Historylow back uhepmnu9307/25/2020Surgical HistoryCardiac cath with stent placement mid LAD03/27/2022urgical Historyreconstruction lt foot surgery 12/29/2022Hospitalization Tjafmybojooquyrwfd7705Ftgbveafvhgaeld History necrotizing fasciitis11/2017Hospitalization Historysee above [employer] Other 02-01-2015 History general Narrative - Reported* Type Description Date Medical History DM2 Medical HistoryHTNMedical HistorySleep apneaMedical Historyhypercalcemia due to P[facility] HistoryneuropathyMedical History12/2014 colonscopy refusedMedical History12/31/2015 MRI left kneeMedical History04/15/19 colonoscopy refused; cologuard orderedMedical Rludjkm40/19/19 Colonoscopy-abnormal repeat in 4 years (pos cologuard)Medical Qzxpqkh51/2019 Pap w/ Dr. SeymourerMedical History Skin ulcer of left foot, limited to breakdown of skinMedical HistorySepsis, unspecified organismMedical HistoryH/O parathyroidectomyMedical HistoryRIGHT FOOT FRACTUREMedical HistoryLEFT FOOT LUCAS SEEING PODIATRISTSurgical History cervical fusion and low back sejusm0230Ahuzvodm History Procedure:;Disease:Jqhuzlklp1609Surxnlbi Historyprevious cervical fusion 1997Surgical HistoryProcedure:;Disease:Pnytywmlc6010Pocmxzix History c/audooqn4457Ndjklsbo HistoryProcedure:;Disease:Gjoczhkwj9620Acnhvkjk Uzkbjagmtpgatjcju0374Qcwgarwp HistoryProcedure:tubal ligationSurgical History Procedure:Low back fusionSurgical Historytubal kdulqyeb9445Xrbsmzhp History2 parathyroids ibaeppx11/2013Surgical HistoryProcedure:cervical fusionSurgical HistoryBilateral eyelid evndjzw93/2012Surgical HistoryProcedure:x2 thyroid glands ionjhxc7385Pzbdlpzr Historyleft knee arthoscopy02/2016Surgical History lithotripsy03/2015Surgical Historyleft knee arthroscopy02/2016Surgical History partial left knee replacement12/2016Surgical Historyincision and drainage necrotizing fasciiitis seroma/bullae left lateral ankle/midfoot12/27/17urgical Historypartial left knee nvkvbcwzavy27/2017Surgical HistoryI&D, debridement necrotizing fasciitis left ankle12/27/2017Surgical HistoryLeft ankle I & D1-2018 Surgical HistoryGallbladder01/2018Surgical HistoryLap. cholecystectomy02/17/2018 Surgical Ouerjsnettrebrvmhk74/19/2019Surgical HistoryColonoscopy06/17/2019 Surgical Historylow back surgery-hbdxoe5507/25/2020Surgical HistoryCardiac cath with stent placement mid LAD03/27/2022urgical Historyreconstruction lt foot pxlcdej8412/29/2022Hospitalization Yzgjpzihzgqnmtowuu0963Wlpqfimgaifayiy History necrotizing fasciitis11/2017Hospitalization Historysee above [employer] Other 02-01-2015 History general Narrative - Reported* Type Description Date Medical History DM2 Medical HistoryHTNMedical HistorySleep apneaMedical Historyhypercalcemia due to [facility] HistoryneuropathyMedical History12/2014 colonscopy refusedMedical History12/31/2015 MRI left kneeMedical History04/15/19 colonoscopy refused; cologuard orderedMedical Tvommfs58/19/19 Colonoscopy-abnormal repeat in 4 years (pos cologuard)Medical Lyjeudm33/2019 Pap w/ Dr. SeymourerMedical History Skin ulcer of left foot, limited to breakdown of skinMedical HistorySepsis, unspecified organismMedical HistoryH/O parathyroidectomyMedical HistoryRIGHT FOOT FRACTUREMedical HistoryLEFT FOOT LUCAS SEEING PODIATRISTSurgical History cervical fusion and low back zxranu1520Yxyrfmjx History Procedure:;Disease:Dwelrcoph9571Mqvwpbjh Historyprevious cervical fusion 1997Surgical HistoryProcedure:;Disease:Yvidtostz0953Ysgqlcuj History c/cklslym8413Bxvnawim HistoryProcedure:;Disease:Pgilhmmrn5813Uqqfmfmw Pbmhjdmxzhbzgepxl3080Xdnlhvmd HistoryProcedure:tubal ligationSurgical History Procedure:Low back fusionSurgical Historytubal cztoavgs0023Hbxdvgxd History2 parathyroids /2013Surgical HistoryProcedure:cervical fusionSurgical HistoryBilateral eyelid lepjtry06/2012Surgical HistoryProcedure:x2 thyroid glands upclkhh3542Erstppha Historyleft knee arthoscopy02/2016Surgical History lithotripsy03/2015Surgical Historyleft knee arthroscopy02/2016Surgical History partial left knee replacement12/2016Surgical Historyincision and drainage necrotizing fasciiitis seroma/bullae left lateral ankle/midfoot12/27/17urgical Historypartial left knee urctudhfksa30/2017Surgical HistoryI&D, debridement necrotizing fasciitis left ankle12/27/2017Surgical HistoryLeft ankle I & D1-2017 Surgical HistoryGallbladder01/2018Surgical HistoryLap. cholecystectomy02/17/2018 Surgical Olqmvthfglqrafqbka11/19/2019Surgical HistoryColonoscopy06/17/2019 Surgical Historylow back surgery-resgzq8907/25/2020Surgical HistoryCardiac cath with stent placement mid LAD03/27/2022urgical Historyreconstruction lt foot surgery Dr. Castro12/29/2022Hospitalization Dnbpqdvmytkfbymzev0328 Hospitalization Historynecrotizing fasciitis11/2017Hospitalization Historysee above [employer] Other 02-01-2015 History general Narrative - Reported* Type Description Date Medical History DM2 Medical HistoryHTNMedical HistorySleep apneaMedical Historyhypercalcemia due to PHT s/p surgery in [facility]Medical HistoryneuropathyMedical History12/2014 colonscopy refusedMedical History12/31/2015 MRI left kneeMedical History04/15/19 colonoscopy refused; cologuard orderedMedical Prskefd52/19/19 Colonoscopy-abnormal repeat in 4 years (pos cologuard)Medical Yfxjhny70/2019 Pap w/ Dr. SeymourerMedical History Skin ulcer of left foot, limited to breakdown of skinMedical HistorySepsis, unspecified organismMedical HistoryH/O parathyroidectomyMedical HistoryRIGHT FOOT FRACTUREMedical HistoryLEFT FOOT LUCAS SEEING PODIATRISTSurgical History cervical fusion and low back effdbs4151Xhydeapv History Procedure:;Disease:Ervhsnwkx2697Wzcbghjs Historyprevious cervical fusion 1997Surgical HistoryProcedure:;Disease:Khsxdypiz9032Gwfrgwsu History c/gxhqdrm2736Jjtrlkpk HistoryProcedure:;Disease:Ruksrzaea6425Fovyocby Plcdqwvgwbtoxuxtw7225Cmpiatfx HistoryProcedure:tubal ligationSurgical History Procedure:Low back fusionSurgical Historytubal gkvqdcit1897Frevxbrf History2 parathyroids nwbmypq57/2013Surgical HistoryProcedure:cervical fusionSurgical HistoryBilateral eyelid fpsogfn88/2012Surgical HistoryProcedure:x2 thyroid glands mfqdqww5892Gqfhmykw Historyleft knee arthoscopy02/2016Surgical History lithotripsy03/2015Surgical Historyleft knee arthroscopy02/2016Surgical History partial left knee replacement12/2016Surgical Historyincision and drainage necrotizing fasciiitis seroma/bullae left lateral ankle/midfoot12/27/17urgical Historypartial left knee gjywsjfvkiz87/2017Surgical HistoryI&D, debridement necrotizing fasciitis left ankle12/27/2017Surgical HistoryLeft ankle I & D1-2018 Surgical HistoryGallbladder01/2018Surgical HistoryLap. cholecystectomy02/17/2018 Surgical Zzdhowpsvtbjcfiojv44/19/2019Surgical HistoryColonoscopy06/17/2019 Surgical Historylow back surgery-licjhn2907/25/2020Surgical HistoryCardiac cath with stent placement mid LAD03/27/2022urgical Historyreconstruction lt foot surgery Dr. Castro12/29/2022Surgical HistorySTEROID INJECTIONS IN LOW BACK AND RIGHT HIP08/2023Hospitalization Uuecgtnieqzzovhfun7696Pomljmmpjzudmkc Historynecrotizing fasciitis11/2017Hospitalization Historysee above [facility] [employer] Other Evaluation note[employer] Other Evaluation noteNo InformationN[employer] Other Evaluation noteN[employer] Other evaluation noteNo assessment information available [facility] Work Phone: Evaluation note* Diagnosis Coronary artery disease, unspecified vessel or lesion type, unspecified whether angina present, unspecified whether eek or transplanted heart- Primary Essential hypertension Unspecified essential hypertension 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 Hyperlipidemia, unspecified hyperlipidemia type Obstructive sleep apnea syndrome Obstructive sleep apnea (adult) (pediatric) Class 2 obesity with body mass index (BMI) of 37.0 to 37.9 in adult, unspecified obesity type, unspecified whether serious comorbidity present Insulin-requiring or dependent type II diabetes mellitus ([facility]) Type II or unspecified type diabetes mellitus without mention of complication, not stated as uncontrolled documented in this encounter [facility] Work Phone: Evaluation note* Diagnosis Onset Date Resolution Status Chronic pain acuteInflammation of sacroiliac jointacuteOsteoarthritis of spine with radiculopathy, lumbar regionacuteTrochanteric bursitisacute [facility] Work Phone: Evaluation note* Diagnosis Onset Date Resolution Status Chronic pain acuteInflammation of sacroiliac jointacuteOsteoarthritis of spine with radiculopathy, lumbar regionacuteTrochanteric bursitisacuteCKD (chronic kidney disease) stage 3, GFR 30-59 ml/minacuteHyperlipidemiaacuteHyperparathyroidism yefyjAXV-QHGK-[id number]qhtlnqqyfdwhalklziIupbfpoerkxogrz acuteType 2 diabetes mellitus with diabetic chronic kidney diseaseacute [facility] Work Phone: Evaluation note* Diagnosis Onset Date Resolution Status Chronic pain acuteInflammation of sacroiliac jointacuteOsteoarthritis of spine with radiculopathy, lumbar regionacuteTrochanteric bursitisacuteCKD (chronic kidney disease) stage 3, GFR 30-59 ml/minacuteHyperlipidemiaacuteHyperparathyroidism [id number]rzilarfphixexctglmLtqskwrlwepdcyg acuteType 2 diabetes mellitus with diabetic chronic kidney diseaseacuteChronic painacuteLumbar muscle painacuteOsteoarthritis of spine with radiculopathy, lumbar regionacute [facility] Work Phone: Evaluation note* Diagnosis Onset Date Resolution Status CKD (chronic kidney disease) stage 3, GF R 30-59 ml/min blgkwMhpotkkqjbamharzwebAphqhzxnphafgqvhscieuwqvZFO-UQIT-[id number] HyperuricemiaacuteHypomagnesemiaacuteNephrolithiasisacuteType 2 diabetes mellitus with diabetic chronic kidney diseaseacuteChronic painacuteLumbar muscle painacuteOsteoarthritis of spine with radiculopathy, lumbar regionacuteChronic painacuteOsteoarthritis of spine with radiculopathy, lumbar regionacute Sacroiliitis, not elsewhere classifiedacute [facility] Work Phone: evaluation note* Diagnosis Onset Date Resolution Status Chronic pain acuteLumbar muscle painacuteOsteoarthritis of spine with radiculopathy, lumbar regionacuteChronic painacuteOsteoarthritis of spine with radiculopathy, lumbar regionacuteSacroiliitis, not elsewhere classifiedacute [facility] Work Phone: evaluation note* Diagnosis Onset Date Resolution Status Chronic pain acuteLumbar muscle painacuteOsteoarthritis of spine with radiculopathy, lumbar regionacuteChronic painacuteOsteoarthritis of spine with radiculopathy, lumbar regionacuteSacroiliitis, not elsewhere classifiedacuteObstructive apneaacute [facility] Work Phone: evaluation note* Diagnosis Onset Date Resolution Status Chronic pain acuteLumbar muscle painacuteOsteoarthritis of spine with radiculopathy, lumbar regionacuteChronic painacuteOsteoarthritis of spine with radiculopathy, lumbar regionacuteSacroiliitis, not elsewhere classifiedacuteObstructive apneaacute Chronic painacuteOsteoarthritis of spine with radiculopathy, lumbar regionacute Sacroiliitis, not elsewhere classifiedacute [facility] Work Phone: Evaluation note* Diagnosis Onset Date Resolution Status Chronic pain acuteOsteoarthritis of spine with radiculopathy, lumbar regionacuteSacroiliitis, not elsewhere classifiedacute [facility] Work Phone: evaluation note* Diagnosis Type 2 diabetes mellitus with peripheral neuropathy ([facility])- Primary 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 ([facility]) Long-term insulin use ([facility]) Class 2 severe obesity due to excess calories with serious comorbidity and body mass index (BMI) of39.0 to 39.9 in adult ([facility]) Type 2 diabetes mellitus with peripheral neuropathy ([facility])- Primary 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 ([facility]) Class 2 severe obesity due to excess calories with serious comorbidity and body mass index (BMI) of39.0 to 39.9 in adult ([facility]) Long-term insulin use ([facility]) Spondylolisthesis at L3-L4 level Class 2 severe obesity due to excess calories with serious comorbidity and body mass index (BMI) of38.0 to 38.9 in adult ([facility])- Primary Type 2 diabetes mellitus with both eyes affected by mild nonproliferative retinopathy without macular edema, with long-term current use of insulin ([facility]) Type 2 diabetes mellitus with peripheral neuropathy ([facility]) 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 ([facility]) Long-term insulin use ([facility]) Type 2 diabetes mellitus with peripheral neuropathy ([facility])- Primary 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 ([facility]) Type 2 diabetes mellitus with both eyes affected by mild nonproliferative retinopathy without macular edema, with long-term current use of insulin ([facility]) Long-term insulin use ([facility]) Class 2 severe obesity due to excess calories with serious comorbidity and body mass index (BMI) of39.0 to 39.9 in adult ([facility]) documented in this encounter [facility] HealthcareEvaluation note* Diagnosis Coronary artery disease, unspecified vessel or lesion type, unspecified whether angina present, unspecified whether eek or transplanted heart Elevated coronary artery calcium score Essential hypertension Unspecified essential hypertension Hyperlipidemia, unspecified hyperlipidemia type Type 2 diabetes mellitus without complication, with long-term current use of insulin ([facility]) 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 Obstructive sleep apnea syndrome Obstructive sleep apnea (adult) (pediatric) Class 2 obesity with body mass index (BMI) of 37.0 to 37.9 in adult, unspecified obesity type, unspecified whether serious comorbidity present documented in this encounter [facility] Work Phone: Evaluation note* Author France Carlson [facility] 2024 10:30amThe above note written by ITZ Teresa acting as human recorder, note dictated by Dr. Charan Casey. 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) Class 2 severe obesity due to excess calories with serious comorbidity and body mass index (BMI) of39.0 to 39.9 in adult ([facility]) Long-term insulin use (HCC) Spondylolisthesis at L3-L4 level Class 2 severe obesity due to excess calories with serious comorbidity and body mass index (BMI) of38.0 to 38.9 in adult ([facility])- Primary Type 2 diabetes mellitus with [...] index (BMI) of39.0 to 39.9 in adult ([facility]) Type 2 diabetes mellitus with Charcot's [...] index (BMI) of37.0 to 37.9 in adult ([facility]) Type 2 diabetes mellitus with Charcot's [...] index (BMI) of35.0 to 35.9 in adult ([facility]) documented in this encounter [facility] HealthcareEvaluation note* Diagnosis Type 2 diabetes mellitus with peripheral neuropathy (HCC)- Primary 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) Long-term insulin use (HCC) Class 2 severe obesity due to excess calories with serious comorbidity and body mass index (BMI) of39.0 to 39.9 in adult ([facility]) Type 2 diabetes mellitus with peripheral neuropathy (HCC)- Primary 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) Class 2 severe obesity due to excess calories with serious comorbidity and body mass index (BMI) of39.0 to 39.9 in adult ([facility]) Long-term insulin use ([facility]) Spondylolisthesis at L3-L4 level Class 2 severe obesity due to excess calories with serious comorbidity and body mass index (BMI) of38.0 to 38.9 in adult ([facility])- Primary Type 2 diabetes mellitus with both [...] index (BMI) of39.0 to 39.9 in adult ([facility]) 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)- Primary Type 2 diabetes mellitus with peripheral neuropathy (HCC) Type 2 diabetes mellitus with both eyes affected by mild nonproliferative retinopathy without macular edema, with long-term current use of insulin (HCC) Long-term insulin use ([facility]) Class 2 severe obesity due to excess calories with serious comorbidity and body mass index (BMI) of37.0 to 37.9 in adult ([facility]) 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)- Primary Type 2 diabetes mellitus with peripheral neuropathy ([facility]) Type 2 diabetes mellitus with both eyes affected by mild nonproliferative retinopathy without macular edema, with long-term current use of insulin (HCC) Long-term insulin use ([facility]) Class 2 severe obesity due to excess calories with serious comorbidity and body mass index (BMI) of35.0 to 35.9 in adult ([facility]) Type 2 diabetes mellitus with peripheral neuropathy ([facility])- Primary 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 Narrative - ReportedBitfone Corporation Other History general Narrative - ReportedBitfone Corporation Other Hospital Discharge instructions Additional Instructions DISCHARGE [...] years. -Follow up with PCP. -Office number [phone]. [facility] Work Phone: Reason for referral (narrative)* Consultation (Routine) - AuthorizedSpecialtyDiagnoses / ProceduresReferred By Contact Referred To ContactCardiology Diagnoses Coronary artery disease, unspecified vessel or lesion type, unspecified whether angina present, unspecified whether eek or transplanted heart Procedures Follow Up In Cardiology Rosalinda Torres MD [address] [place] [id number] Rosalinda Torres MD [address] [place] [address], [address] [address] Referral IDStatusReasonStart DateExpiration DateVisits RequestedVisits [id number]/25/[id number]/ [facility] Work Phone: Reason for referral (narrative)* Consultation (Routine) - AuthorizedSpecialtyDiagnoses / ProceduresReferred By Contact Referred To ContactCardiology Diagnoses Coronary artery disease, unspecified vessel or lesion type, unspecified whether angina present, unspecified whether eek or transplanted heart Procedures Follow Up In Cardiology Rosalinda Torres MD [address] [facility] [address] [place] [address] Rosalinda Torres MD [address] [facility] [address], [facility] [address] [place] [address] Referral IDStatusReasonStart DateExpiration DateVisits RequestedVisits [id number]/26/20249/ [facility] Work Phone: Rejhje for referral (narrative)No reason for referral information availableUc Health Work Phone: Summary Purpose Family History Unknown Family Member Name Dates Details Family history of CABG: Fat er(V17.49, Z82.49) Status:Active Unknown Family Member Name Dates Details Family history of CABG: [facility] er(V17.49, Z82.49) Status:Active Unknown Family Member Name Dates Details Family history of CABG: [facility] er(V17.49, Z82.49) Status:Active Unknown Family Member Name Dates Details Family history of CABG: Fat er(V17.49, Z82.49) Status:Active Relationship Condition Age at [...] Name Dates Details Family history of CABG: Fat er(V17.49, Z82.49) Status:Active Relationship Condition Age at [...] spinal fusionUnknownAsthmaUnknownbrotherDiabetes mellitusUnknown brotherHypertensionUnknownPsoriasisUnknownpaternal grandfatherDementiaUnknown Advance Directives Advance Directive Response Recorded Date/ [...] the patient is agreeable to go on zxxtutcruplc86 mg daily along with Zetia 10 mg [...] any trouble since her angioplasty. She has Hzejrut-Fusop-Hphmg disease and had recent surgery on the [...] has been compliant with it. * 7 Wwcogwf-Humct-Csyjw joint in the ankles status post recent surgery on the left foot with plan to repair the right foot down the road Reason for Referral Reason Patient is need ing to having screening colonoscopy. Please schedule with [facility] Gastro. Patient DOES NOT want to see Dr. Bryatn. Please call patient to schedule Diagnosis 1 Screening for colon cancer (Z12.11) Referral Organization [facility] Family Medicin elia Gonzales Referring Provider First Name Charan Referring Provider Last Name Jacinto Referring Provider Specialty Family Prac pop Referred Organization [facility] Gastroenterolo gy Referred Provider Yasmeen Treadwell Referred Address [address] [facility] ,[place], [place],[address] Referred Provider Specialty Gastroentero logy Referral Priority Routine General Notes Fore, Renée M 023 10:30:05 AM >Received today and sent P2P Reason stat consult and lou at Diagnosis 1 Chest pressure (R07. 89) Diagnosis 2 Shortness of breath (R06.02) Diagnosis 3 Type 2 diabetes wicho itus with diabetic neuropathy, unspecified (E11.40) Diagnosis 4 Obstructive apnea (G 47.33) Referral Organization [facility] Family Matthew rodrigez Gonzales Referring Provider First Name Charan Referring Provider Last Name Jacinto Referring Provider Specialty Family Giancarlo lord Referred Organization [facility] Heart enter Referred Address [address] [facility] [address],[place], [place],[address] Referred Provider Specialty Cardiology Referral Priority Stat [...] stage 3, GFR 30-59 ml/min Hyperlipidemia Hyperparathyroidism [id number] Hyperuricemia Hypomagnesemia Nephrolithiasis Type 2 diabetes mellitus [...] stage 3, GFR 30-59 ml/min Hyperlipidemia Hyperparathyroidism [id number] Hyperuricemia Hypomagnesemia Nephrolithiasis Type 2 diabetes mellitus [...] stage 3, GFR 30-59 ml/min Hyperlipidemia Hyperparathyroidism [id number] Hyperuricemia Hypomagnesemia Nephrolithiasis Type 2 diabetes mellitus [...] stage 3, GFR 30-59 ml/min Hyperlipidemia Hyperparathyroidism [id number] Hyperuricemia Hypomagnesemia Nephrolithiasis Type 2 diabetes mellitus [...] M25.511 - Pain in right shoulder Novembe 2023 8:01am CONSULT DR ORTIZ October 25, [...] Reason for Visit Admit Date Chronic pain November 20th, 2024 8:01am Osteoarthritis of spine with radiculopat [...] 8:03a m Sacroiliitis, not elsewhere classified J [facility] 2024 8:03am Trochanteric bursitis May [...] 9:03 am Sacroiliitis, not elsewhere classified J edd 2024 9:03am Trochanteric bursitis June 21, 2025 [...] 8:03a m Sacroiliitis, not elsewhere classified J [facility] 2024 8:03am Trochanteric bursitis May 31, 2025 8:0 3am Chronic pain June 21, 2025 9:03 am Sacroiliitis, not elsewhere classified [facility] 2024 9:03am Trochanteric bursitis June 21, 2025 9: 03am Diabetic foot ulcer associat ed with type 2 diabetes mellitus, with fat laye July 12, 2025 7:36am MRSA bacteremia July 12, 2025 7: 36am Oral thrush July 12, 2025 7: 36am Additional Source Comments INFORMATION SOURCE (unrecogn ized section and content) DATE CREATED AUTHOR 07/28/2018 [facility] DATE CREATED AUTHOR AUTHOR'S ORGANIZ ATION 03/18/2022 [facility] DATE CREATED AUTHOR AUTHOR'S ORGANIZ ATION 10/17/2022 [facility] DATE CREATED AUTHOR AUTHOR'S ORGANIZ ATION 04/13/[address] [facility] DATE CREATED AUTHOR AUTHOR'S ORGANIZ ATION 05/08/2023 [employer] DATE CREATED AUTHOR AUTHOR'S ORGANIZ ATION 05/08/2023 [facility] DATE CREATED AUTHOR AUTHOR'S ORGANIZ ATION 02/23/2024 [facility] DATE CREATED AUTHOR AUTHOR'S ORGANIZ ATION 06/09/2025 [facility] DATE CREATED AUTHOR AUTHOR'S ORGANIZ ATION 07/29/2025 [facility] REASON FOR VISIT (unrecogniz ed section and content) ReasonOnset DateCommentsMedication Uxfmpptf55/12/2025ReasonCommentsFollow-up6m SpecialtyDiagnoses / ProceduresReferred By ContactReferred To ContactCardiology Diagnoses Coronary artery disease, unspecified vessel or lesion type, unspecified whether angina present, unspecified whether eek or transplanted heart Procedures Follow Up In Cardiology Rosalinda Torres MD [address] [facility] [address], [address] [address] Rosalinda Torres MD [address] [facility] [address], [address] [address] Referral IDStatusReasonStart DateExpiration DateVisits RequestedVisits [id number]vpem CommentsFollow-up[address] ChengionCOLONOSCOPY REPORTUpdate Kiosk [...] program 4/8Clinicalneuropathy, chest pressure ,SOBfyirefillsneeds fmla, FACETIME [phone] Care Teams (unrecognized sec tion and content) Team Status: Active Member Role Status Dates Charan Casey , Primary Care Provider Active Team Status: Inactive Member Role Status Dates Charan Casey , Primary Care Provider Active Matt Dorantes ProviderActive Team Status: Inactive Member Role Status Dates Charan Casey , DO Primary Care Provider Active Teodora Patton ProviderActive Team Status: Inactive Member Role Status Dates Charan Kuns , DO Primary Care Provider Active Ric Ceja DPMAttending ProviderActive Team Status: Inactive Member Role [...] October 06, 2023 End: October 06, 2023Imad Asaskyler , MDAttending ProviderActiveStart: October 06, 2023 End: [...] Dates Charan Kuns , DO Primary Care Provide r, Attending [...] 2023Team MemberRelationshipSpecialtyStart DateEnd Date Charan Casey DO [facility] [facility] [address] [place] [address] PCP - GeneralFamily Medicine02/22/24 Rosalinda Torres MD [address] [facility] [address], [address] [address] Consulting PhysicianCardiology02/22/24 Team Status: Inactive Member Role [...] Sta rt: March 05, 2024 End: March 05omas Diana MDAttending ProviderActiveStart: March 05, 2024 End: March 05, 2024 Team Status: Inactive Member Role Status Dates Charan Casey DO Primary Care Provider Active Sta rt: March 17, 2024 End: March 17omas Diana MDAttending ProviderActiveStart: March 17, 2024 End: March 17, 2024 Team Status: Active Member Role Status Dates Mendy Lopez LPN Care Manager Active Blas Ortiz , MDSpecialistActiveAlllucia Munroe , DOSpecialistActivePeNewberry DPM MSSpecialistActiveHassheather Torres , MDSpecialistActiveCharan Casey , [...] rt: May 23, 2024 End: May 23omas Diana MDAttending ProviderActiveStart: May 23, 2024 End: May 23, 2024 Team Status: Inactive Member Role Status Dates Charan Casey DO Primary Care Provider Active Sta rt: May 31, 2024 End: May 31omas Diana MDAttending ProviderActiveStart: May 31, 2024 End: May [...] rt: September 12, 2024 End: September 12, 2024Thharsh Ortiz MDAttending ProviderActiveStart: September 12, 2024 End: September 12, 2024 Team Status: Active Member Role Status Dates Charan Casey DO Primary Care Provider Active Sta rt: September 12, 2024 CYNTHIA NewmanAAtgris ProviderActiveStart: September 12, 2024 Team Status: Inactive [...] 2024Team MemberRelationshipSpecialtyStart DateEnd Date Charan Casey MD [address] [place] [phone] PCP - General05/20/23 Moni Becker MD [address] [facility] [address] [place] [address] PCP - [facility]/11/2411Team MemberRelationshipSpecialtyStart DateEnd Date Charan Casey [facility] - [facility]/22/24 Rosalinda Torres MD [address] [place] [address] 2, [facility] [address] [place] [address] Consulting PhysicianCardiology02/22/24 Team Status: Inactive Member Role [...] 2025Team MemberRelationshipSpecialtyStart DateEnd Date Charan Casey MD [address] [place] [phone] [facility] - General05/20/23 Team Status: Active Member Role Status Josafat [...] Sta rt: January 18, 2025 End: January 18Austin Schaeferending ProviderActiveStart: January 18, 2025 End: January 18, [...] rt: February 01, 2025 End: February 01, 2025Thharsh Ortiz MDAttending ProviderActiveStart: February 01, 2025 End: February 01, 2025 Team Status: Active Member Role Status Dates Charan Casey DO Primary Care Provider Active Sta rt: February 01, 2025 Blas Ortiz MDAttending ProviderActiveStart: February 01, 2025 Team Status: Inactive Member Role Status Dates Charan Casey DO Primary Care Provider Active Sta rt: February 16, 2025 End: February 16Austin [place] ProviderActiveStart: February 16, 2025 End: February 16, [...] 2025Team MemberRelationshipSpecialtyStart DateEnd Date Charan Casey DO [address] [place] [phone] [facility]05/20/23 Team Status: Inactive Member Role Status Josafat [...] 2025Team MemberRelationshipSpecialtyStart DateEnd Date Charan Casey DO [address] [place] [address], [place] [phone] PCP - General05/20/23Team MemberRelationshipSpecialtyStart DateEnd Date Charan Casey DO [address] [place] [address], [place] [phone] PCP - General05/20/23Team MemberRelationshipSpecialtyStart DateEnd Date Charan Casey DO [address] [place] [address], [place] [phone] PCP - General05/20/23 Goals (unrecognized section and [...] BE BASED ON THE PRIMARY CLINICAL RECORDS. [facility]. provides no warranty or guarantee of the accuracy or completeness of information in this document.
== END 2025-10-18 09:11 | disposition home or self-care (01) ==
LOC: WC 09:10
PROVIDERS: PCP Family Medicine; Visit Provider Physician Assistant
DX: E11.621 Type 2 diabetes mellitus with foot ulcer (principal); L97.423 Non-pressure chronic ulcer of left heel and midfoot with necrosis of muscle
CPT/HCPCS: 29445

== ENCOUNTER 2025-10-25 09:09 | Outpatient (OUT) | payer MEDICARE, SELFPAY ==
--- OUTSIDE RECORDS SUMMARY | 2025-07-12 04:00 | XMS_ITS ---
Author Organization The [facility] in [place] Address [address] [place] [address] Care Team Providers Care Continuous Improvement Lead Name Role Phone Charan Delgadillo DO Primary Care Provider Torres Cid [facility] [phone] REASON FOR VISIT 1 year f/u Encounters Encounter Location Date Provider Diagnosis [facility] (PODIATRY) [address] [place] [address] [address] [place], [place] [address] 07/12/2025 Torres Fernandez Plan Of Treatment No Information Progress Notes * JORDYN JoyDOB:1960 (64 yo F)Acc No.[id number]:07/12/2025 UNLOCKED PROGRESS NOTE Follow Up Patient: Joy CHAVEZ :?Torres Fernandez DPM, MSDOB:1960???Age: 64 Y???Sex:FemaleDate:07/12/2025Phone:[phone]:[address], [place]HP[place]-[address]Fhk:Charan Delgadillo DO Subjective: * Chief Complaints: * 1 . 1 year f/u. * Medical History: Objective: * Vitals: Assessment: Plan: * Treatment: * * Electronic signature of Torres Fernandez DPM on 10/25/2025 at 09:11 AM ESTSign off status: PendingVisit Status:?OFF CANC (OFFICE CANCEL) * Provider: Dani Fernandez DPM, MS Date: 0 07/12/2025 Generated for Printing/Faxing/eTransmitting on:?10/25/2025 09:11 AM EST
--- OUTSIDE RECORDS SUMMARY | 2025-10-24 10:30 | XMS_ITS | Encounter Summary ---
Author Organization [facility] Address [address] [facility] [place] [address] Care Team Providers Care Shank Sorter Name Role Phone Brysonbryn Charan Louise DO Primary Care Provider [phone] Encounter Details DateTypeDepartmentCare Team (Latest Contact Info)Faqwukmxuzd71/25/2025 10:30 AM ESTOffice Visit [facility] [address] [facility] [address] [place] [address] Shaina Figueroa DO [address] [facility] [address] [place] [address] Type 2 diabetes mellitus with [...] oz pure alcohol)caffeine: 1-2 cups per day [id number] Health LiteracyAnswerDate RecordedHow often do you need [...] relatives?Once a week07/26/2025How often do you attend christianity or faith services?More than 4 times per year07/26/2025Do you belong to any clubs or organizations such as christianity groups, unions, fraternal [...] at all 07/26/2025PHQ-2AnswerDate RecordedPatient Health Questionnaire-2 Score0 10/24/2025[facility] [place] [facility] Occup[facility] Health - Occupational Stress QuestionnaireAnswerDate RecordedDo you feel stress - tense, restless, nervous, or anxious, or unable to sleep at night because yourmind is troubled all the time - these days?To some ovgals7102/08/2024Exercise Vital SignAnswerDate Recorded On average, how many days per week do you engage in moderate to strenuous exercise (like a brisk walk)?Patient npjlysyx20/11/2024On average, how many minutes do you engage in exercise at this level?Patient hdawyrsz23/11/2024Hunger Vital SignAnswerDate RecordedWithin the past 12 months, [...] steady place to sleep or slept in [place] (including now)?No 02/08/2024Housing Stability Vital SignAnswerDate RecordedIn [...] now)?No07/26/2025CommentsUnknownSex and Gender InformationValueDate RecordedSex Assigned at OvwbmVddbii51/21/2023 8:32 AM EDT Legal HanRvdsts79/ 7:19 PM EDTGender FcievewvJctxqv08/21/2023 8:32 AM EDT Sexual OrientationNot on filedocumented as of this encounter Last Filed Vital Signs Vital SignReadingTime TakenCommentsBlood Utvhqqxr259/7810/24/2025 10:24 AM EST Aqtsm080910/24/2025 10:24 AM EOJInnlpixoacl10.5 ??C (97.7 ??F)10/24/2025 10:24 AM ESTRespiratory Rate--Oxygen Qwjjuhsntl97%10/24/2025 10:24 AM ESTInhaled Oxygen Concentration--Weight--Hjlqmw379.6 cm (5' 6 )10/24/2025 10:24 AM ESTBody Mass Index--documented in this encounter Functional Status * Over the past 2 weeks, how often have you been bothered by any of the following problems?QuestionAnswerDate of AssessmentAuthorLittle interest or pleasure in doing thingsNot at all10/24/2025 10:39 AM Monica Kendall LPNFeeling down, depressed, or hopelessNot at all10/24/2025 10:39 AM Monica Kendall LPNPatient Health Questionnaire-2 Iyfyr12112/24/2024 10:39 AM Monica Kendall LPN documented as [...] mg Weekly SC (2 MG/3ML SOPN) Labs [facility] [place] HEMOGLOBIN A1C/HEMOGLOBIN.TOTAL:MFR:PT:BLD:QN: 7.5 Outpatient prescription Medication marked [...] PO) Take by mouth CONTINUOUS BLOOD GLUC BUILDING CONSTRUCTION ESTIMATOR (DEXCOM G7 BUILDING CONSTRUCTION ESTIMATOR) DEVICE USE DIRECTED CONTINUOUS BLOOD GLUC SENSOR [...] Plan of Treatment DateTypeDepartmentCare Team (Latest Contact Info)Igboidtabbe54/24/2026 8:45 AM ESTOffice Visit [facility] [address] [place] [phone] Shaina Figueroa DO [address] [place] [address] documented as of this encounter Procedures Procedure NamePriorityDate/TimeAssociated DiagnosisCommentsPOCT GLYCOSYLATED HEMOGLOBIN (HGB A1C)Lynyspk9610/24/2025 10:41 AM EST Type 2 diabetes mellitus with peripheral neuropathy (HCC) documented in this encounter Results * POCT glycosylated hemoglobin (Hb A1C) docked device (10/24/2025 10:41 AM EST) ComponentValueRef RangeTest MethodAnalysis TimePerformed AtPathologist SignatureHemoglobin A1C7.5Specimen (Source)Anatomical Location / Laterality Collection Method / VolumeCollection TimeReceived TimeBloodVenous blood specimen / Akmfvfj9010/24/2025 10:41 AM EST Narrative Authorizing ProviderResult TypeResult [...] Team MemberRelationshipSpecialtyStart DateEnd Date Charan Delgadillo DO [address] [place] [phone] PCP - General05/20/23documented as of this encounter
--- OUTSIDE RECORDS SUMMARY | 2025-10-25 09:11 | XMS_ITS | Patient Health Record ---
Author Organization [facility] [place] Address [address] [place] [address] Care Team Providers Care Beater Machine Operator Name Role Phone Charan Delgadillo DO Primary Care Provider Torres Cid [phone] Allergies Allergen (clinical drug ingredient) Drug/Non Drug [...] due to ty pe 2 diabetes mellitus (3221676429451) 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.621) ActiveconfirmedProblemIngrowing nail (176663512)Ingrowing nail (L60.0)Active confirmedProblemChronic ulcer of foot (934147125)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)ActiveconfirmedProblemNon- pressure chronic ulcer of other part of left foot limited to breakdown of skin (L97.521)ActiveconfirmedProblemArthropathy associated with a neurological disorder (84240473)Charcot's joint, right ankle and foot (M14.671)Active confirmedProblemLocalized, primary osteoarthritis of the ankle and/or foot (482221326)Primary osteoarthritis, left ankle and foot (M19.072)Activeconfirmed ProblemAcquired hammer toe of left foot (1112741016949051)Other hammer toe(s) (acquired), left foot (M20.42)ActiveconfirmedProblemDeformity of lower leg (960991115)Other specified acquired deformities of right lower leg (M21.861) ActiveconfirmedProblemArthralgia of the ankle and/or foot (815838016)Pain in right ankle and joints of right foot (M25.571)ActiveconfirmedProblemArthralgia of the ankle and/or foot (726026920)Pain in left ankle and joints of left foot (M25.572)ActiveconfirmedProblemPain in right foot (847557819762866)Pain in right foot (M79.671)ActiveconfirmedProblemPain in left foot (395109660752263)Pain in left foot (M79.672)ActiveconfirmedProblemPseudarthrosis after fusion or arthrodesis (577205872)Pseudarthrosis after fusion or arthrodesis (M96.0)Active confirmedProblemPain associated with internal prosthetic device (disorder) (623410536)Pain due to internal orthopedic prosthetic devices, implants and grafts, initial encounter (T84.84XA)ActiveconfirmedProblemHypertension (44462227)HTN (hypertension) (I10)ActiveconfirmedProblemDiabetic nephropathy (580682412)Diabetic nephropathy (E11.21)ActiveconfirmedProblemHeart disease (32160315)Heart disease (I51.9)ActiveconfirmedProblemChronic ulcer of foot (489248586)Non-pressure chronic ulcer of left heel and midfoot with necrosis of muscle (L97.423)ActiveconfirmedProblemArthropathy associated with a neurological disorder (30505535)Charcot's joint of left foot (M14.672)ActiveconfirmedProblem Dehiscence of surgical wound (disorder) (81229420)Postoperative wound dehiscence, subsequent encounter (T81.31XD)ActiveconfirmedProblemNon-pressure chronic ulcer of left heel and midfoot limited to breakdown of skin (L97.421) ActiveconfirmedProblemHypercholesterolemia (33277771)Hypercholesterolemia (E78.00)ActiveconfirmedProblemArthropathy associated with a neurological disorder (27248877)Charcot's joint of right foot (M14.671)ActiveconfirmedProblem Acquired abduction deformity of left foot (M21.6X2)ActiveconfirmedProblem Diabetes mellitus (18628137)Diabetes mellitus (E11.9)Activeconfirmed Plan Of Treatment Pending Test Test Name Order Date POINT OF CARE GLUCOSE 04/13/2023 PROF CHEM 8 (BAS METB) 03/31/2023 XR foot LAURA min 3V 06/22/2024 Insurance Providers Payer Name Payer Address Payer Phone Subscriber Number Group Number Insured Name Patient Relationship to Insured Coverage Start Date Coverage End Date O [address] [place], [place] [id number] Joy Asher Self - patient is the [...] Spine FusionLumbar Spine FusionLT Ankle exploration/bx Dr SeymourEjlvks2544 Heart Fzkshi6303/27/2022LT midfoot fustion with corrective osteotomy, talonavicular/subtaler joint fustions, harvest of distal tibial bone graft, gastrocnemius recession/exostectomy Dr Fernandez12/29/2022removal deep implanted hardware left foot04/13/2023ack injectionsHospitalization History Reason Date(Month/Year) see above
--- OUTSIDE RECORDS SUMMARY | 2025-10-25 09:11 | XMS_ITS | Encounter Summary ---
Author Organization [facility] Address [address] [facility] [place] [address] Care Team Providers Care Suction Dredge Dumping Supervisor Name Role Phone Brysonbryn Charan Louise DO Primary Care Provider [phone] Reason for Visit * ReasonOnset DateCommentsMedication Fttkypcq62/12/2025 Encounter Details DateTypeDepartmentCare Team (Latest Contact Info)Wgaywhubrii08/12/2025Telephone [facility] [address] [facility] [address] [place] [address] Shaina Figueroa DO [address] [facility] [address] [place] [phone] Medication Question Social History Tobacco UseTypesPacks/DayYears UsedDateSmoking Tobacco: NeverSmokeless Tobacco: NeverAlcohol UseStandard Drinks/WeekCommentsNever0 (1 standard drink = 0.6 oz pure alcohol)caffeine: 1-2 cups per day rqtlglN2031 Health LiteracyAnswerDate RecordedHow often do you need [...] relatives?Once a week07/26/2025How often do you attend congregation or bahai services?More than 4 times per year07/26/2025Do you belong to any clubs or organizations such as congregation groups, unions, fraCruiseWise or athletic groups, or school groups?No07/26/2025How often [...] at all 07/26/2025PHQ-2AnswerDate RecordedPatient Health Questionnaire-2 Score0 05/15/2025[facility] - Occupational Stress QuestionnaireAnswerDate RecordedDo you feel stress - tense, restless, nervous, or anxious, or unable to sleep at night because yourmind is troubled all the time - these days?To some lruklk6302/08/2024Exercise Vital SignAnswerDate Recorded On average, how many days per week do you engage in moderate to strenuous exercise (like a brisk walk)?Patient elesgnve14/11/2024On average, how many minutes do you engage in exercise at this level?Patient jlmhwqyt38/11/2024Hunger Vital SignAnswerDate RecordedWithin the past 12 months, [...] steady place to sleep or slept in alvaelter (including now)?No 02/08/2024Housing Stability Vital SignAnswerDate RecordedIn [...] now)?No07/26/2025CommentsUnknownSex and Gender InformationValueDate RecordedSex Assigned at AqgtfGieicn78/21/2023 8:32 AM EDT Legal NsaMvnmkw09/15/2023 7:19 PM EDTGender LnlwlbfiDxwrvv12/21/2023 8:32 AM EDT Sexual OrientationNot on filedocumented as of this encounter Miscellaneous Notes * Telephone Encounter - Monica Nay, DAE - 10/11/2025 11:17 AM EST P/c to pt informing her that she can do finger sticks while she waits or she can brick picker a sample of G7 sensor. Pt states she does not have supplies to check via finger stick. Dexcom G7 sensor set aside for pt to brick picker. Pt will stop in tomorrow morning to brick picker sensor. * Telephone Encounter - Margarita Esposito - 10/11/2025 [...] Pt would like a call back at [phone] to discuss this. documented in this encounter Plan of Treatment DateTypeDepartmentCare Team (Latest Contact Info)Tbauauokxnl39/24/2026 8:45 AM ESTOffice Visit [facility] [address] [place] [address] Shaina Figueroa DO [address] [place] [address] documented as of this encounter Visit Diagnoses Not on filedocumented in this encounter Care Teams Team MemberRelationshipSpecialtyStart DateEnd Date Charan Delgadillo DO [facility] [address] PCP - General05/20/23documented as of this encounter
--- OUTSIDE RECORDS SUMMARY | 2025-10-25 09:11 | XMS_ITS | Clinical Summary ---
Author Organization [facility] Address [address] [place] [address] Phone Care Team Providers Care Data Visualization Developer Name Role Phone Charan Delgadillo DO Primary Care Provider [phone] Rosalinda Cordova MD Unavailable [phone] Allergies Active AllergyReactionsCriticalityNoted DateCommentsErythromycin Base Nausea/rxohqzfp70/05/2024LevofloxacinNausea/ewmtopkrEwky77/25/2024 Head ache Medications MedicationSigDispense QuantityRefillsLast FilledStart DateEnd DateStatus allopurinol (Zyloprim) 100 mg tablet Take 1 tablet (100 mg) by mouth once daily.02/07/2022ctive ascorbic acid (Vitamin C) 1,000 mg tablet Take 1 tablet (1,000 mg) by mouth once daily.Active aspirin 81 mg EC tablet Take 1 tablet (81 mg) by mouth once daily.Active ergocalciferol (Vitamin D-2) 1.25 MG (45601 UT) capsule Take 1 capsule (50,000 Units) [...] 10 mg tablet Indications:Atherosclerotic heart disease of alutiiq coronary artery without angina pectorisTake 1 tablet [...] 10 mg tablet Indications:Atherosclerotic heart disease of alutiiq coronary artery without angina pectorisTake 1 tablet (10 mg) by mouth 3 (three) times a week. 36 tablet 12:43 PM EDT1Discontinued Active Problems ProblemNoted DateDiagnosed DateClass 2 obesity with body mass index (BMI) of 37.0 to 37.9 in adult02/22/2024AD (coronary artery disease)12/04/2023Elevated coronary artery calcium score12/04/2023iabetes unprfzqd52/05/2024Essential zuwvjulmtrcw60/05/4648Chqstlhcajctkk02/05/2024Obstructive sleep apnea syndrome 12/04/2023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12/04/2023 Encounters DateTypeDepartmentCare BwjaXzqtqijcafx45/10/2025Refill [address] [address] Rosalinda Cordova MD Atherosclerotic heart disease of alutiiq coronary artery without angina pectoris; Chest pain, unspecifiedfrom Last 3 Months Immunizations ImmunizationAdministration DatesNext DueInfluenza, seasonal, injectable 10/16/2022Moderna SARS-CoV-2 Hafedvhwwvn64/17/2022neumococcal conjugate vaccine, 13-valent (PREVNAR 13)12/02/2016Pneumococcal polysaccharide vaccine, 23-valent, age 2 years and older (PNEUMOVAX 23)11/30/2016,10/15/2016 Family History Medical HistoryRelationNameCommentsCABGFatherRelationNameStatusCommentsFather Social History Tobacco UseTypesPacks/DayYears UsedDateSmoking Tobacco: NeverSmokeless Tobacco: Never Tobacco Cessation:Counseling Given: Not Answered Alcohol UseStandard Drinks/WeekCommentsNever0 (1 standard drink = 0.6 oz pure alcohol)CommentsUnknownSex and Gender InformationValueDate RecordedSex Assigned at BirthNot on fileLegal AayYjsmlk25/26/2022 10:20 AM ESTGender IdentityNot on fileSexual OrientationNot on file Last Filed Vital Signs Vital SignReadingTime TakenCommentsBlood Rhvjymoe954/80008/25/2024 8:35 AM EDT Mjspp8536/26/2024 8:35 AM EDTTemperature--Respiratory Rate--Oxygen Saturation-- Inhaled Oxygen Concentration--Ufikio490 kg (241 lb)08/25/2024 8:35 AM EDTHeight 170.2 cm (5' 7 )08/25/2024 8:35 AM EDTBody Mass Index37.75008/25/2024 8:35 AM EDT Plan of Treatment DateTypeDepartmentCare Team (Latest Contact Info)Pemvaoufykn80/05/2025 2:30 PM ESTOffice Visit [address] [phone] Rosalinda Cordova MD [address] [facility] [address] [place] [address] Health MaintenanceDue DateLast DoneCommentsCT Opspzbndjzvk1960Diabetes: Hemoglobin A1C1960Diabetes: Urine Protein Apgcyszmi1960FIT-DNA (Cologuard)1960FIT1960HIV Evbwidhnz1960Lipid Panel1960 Medicare Annual Wellness Visit (AWV)1960Tmvbcoejczqvo1960MMR Vaccines (1 of 1 - Standard series)1Diabetes: Retinopathy Screening 1970Hepatitis C Ebztftioi62/03/1978Cervical Cancer Jmlpikmqt50/03/1981 HPV/Bmbuja8911/01/1981Pap Smear11/01/19815518Dmqssafqe03/03/2000RSV High Risk: (Elderly (60+) or Population) (1 - Risk 50-74 years 1-dose series) 2010Pneumococcal Vaccine (3 of 3 - PCV20 or PCV21)/01/2017, 11/30/2016, 10/15/2016DTaP/Tdap/Td Vaccines (2 - Td or Tdap)/08/2012 Influenza Vaccine (#1), 08/30/2021, 08/30/2019, Additional history existsCOVID-19 Vaccine ( season), 10/16/2022, 09/25/2021, Additional history lhsbwxCtjvgvfymkj58 Colorectal Cancer Kxworybha60/07/2033Zoster EiwknacrFnqjnfdzs15/28/2023, 10/28/2022HIB VaccinesAged OutNo longer eligible based on [...] - GeneralFamily Medicine02/22/24 Rosalinda Cordova MD [address] [facility] [address] [place] [address] Consulting PhysicianCardiology02/22/24
--- OUTSIDE RECORDS SUMMARY | 2025-10-25 09:11 | XMS_ITS | Clinical Summary ---
Author Organization [facility] Address [address] [place], [place] [id number] Care Team Providers Care Metal Welder Name Role Phone Charan Delgadillo DO Primary Care Provider [phone] Allergies Active AllergyReactionsCriticalityNoted DateCommentsErythromycinGI Upset 11/12/2012 Medications [...] Date RecordedSex Assigned at BirthNot on fileLegal VufJrbulg44/02/2012 8:57 AM ESTGender IdentityNot on fileSexual OrientationNot on file Last Filed Vital Signs Vital SignReadingTime TakenCommentsBlood Tlukvrmp168/72012/23/2012 1:14 PM EST Xvwhn537912/23/2012 1:14 PM XDZPizdvecudvp51.7 ??C (98.1 ??F)12/08/2012 6:43 AM ESTRespiratory Rwnt243112/08/2012 6:43 AM ESTOxygen Djibtjnzyl02%12/08/2012 6:43 AM ESTInhaled Oxygen Concentration--Doufpv51 kg (216 lb 1.6 oz)12/23/2012 1:14 PM XNSFjwxnq687.2 cm (5' 7 )11/29/2012 10:21 AM ESTBody Mass Index33.85 11/29/2012 10:21 AM EST Plan of Treatment Health MaintenanceDue DateLast DoneCommentsAnxiety Tununjrqj18/03/1978Depression Bvfeaimvt90/03/1978HIV Mqyczlgba94/03/1978Hepatitis C Ypxmqonvq50/03/1978 DTaP,Tdap,Td Vaccine (1 - Tdap)1979Cervical Cancer Avbupudzg72/03/1981 Mammogram Groikpprg11/03/2000CT Jgescoqdwjyy26/03/2005Cologuard (FIT-DNA) 11/01/20053950Stprpuclilc21/03/2005Colorectal Cancer Mteqjucdg42/03/2005Fecal Occult Blood2005Lipid Dzrjohnxy40/03/9042Lcosnyvysxsgh08/03/2005Pneumococcal Vaccine: 50+ (1 of 1 - PCV)2010Shingrix Vaccine (1 of 2)2010Diabetes Wlabpxkhw54Covid-19 Vaccine (1 - 2024- season)2025 Influenza Vaccine (#1)2025RSV Vaccine (1 - 1-dose 75+ series)2035 Procedures Procedure NamePriorityDate/TimeAssociated DiagnosisCommentsBASIC METABOLIC PANEL Rrkbgzq4011/29/2012 10:11 AM EST Hyperparathyroidism, unspecified Preoperative examination, unspecified from Last 3 Months or Most Recently Relevant to Health Maintenance Results * (ABNORMAL) BASIC METABOLIC PNL (11/29/2012 10:11 AM EST)ComponentValueRef RangeTest MethodAnalysis TimePerformed AtPathologist YsrnygwypEjedxho847(H)65 - 100 mg/dLCOSHOCT[facility] LQLXDDUOLMGNK696 - 25 mg/dLCOSHOCTON REGIONAL [facility] LABORATORYCreatinine0.780.70 - 1.40 mg/dLCOSHOCTON REGIONAL MEDICAL C[facility] LABORATORY Wqcvvc494724 - 148 mmol/LCBELLEVUE HOSPITAL LABORATORYPotassium4.43.5 - 5.0 mmol/LCGEORGETOWN [facility] MAIN VSMSDRTRQGHnbqhrvq96(L)98 - 110 mmol/LCBELLEVUE [facility]ITAL AFPGZXUWUDKK93761 - 32 mmol/LCBELLEVUE [facility]ITAL LABORATORYAnion Gap16(H)0 - 15 mmol/LCBELLEVUE HOSPITAL HHMHZWABEXPkjgrbw48.4(H)8.5 - 10.5 mg/dLCOSHOCTON REGIONAL [facility]ENTER LABORATORYeGFR->60C[facility] LABORATORYeGFR-All Other Races>60.[facility] Comment: eGFR (Estimated GFR) [...] Dexter LUKELABORATORYFinal Result Performing OrganizationAddressCity/State/ZIP CodePhone Number [facility] [address] [place] [address] from Last 3 Months or Most Recently Relevant to Health Maintenance Insurance Care Teams Team MemberRelationshipSpecialtyStart DateEnd Date Charan Delgadillo DO [address] [place] [address] PCP - GeneralFamily Vvpyxzgx36/10/12
--- OUTSIDE RECORDS SUMMARY | 2025-10-25 09:11 | XMS_ITS | Clinical Summary ---
Author Organization [facility] Address [address] [place] [address] Care Team Providers Care Learning Developer Name Role Phone Brysonbryn Charan Dani BASSETT Primary Care Provider Allergies Active AllergyReactionsCriticalityNoted DateCommentsErythromycinUnknown 05/15/2025Erythromycin BaseNausea Only05/19/2023 Other Reaction(s): Abdominal Pain, nausea LevofloxacinGI qpcqwnaiibmPtbk43/25/2024 Head ache Other Reaction(s): hypoglycemia Medications MedicationSigDispense QuantityRefillsLast FilledStart DateEnd DateStatus allopurinol [...] MOUTH ONCE DAILY ON mondays, wednesdays, AND gnptufg2111/12/2022 Active pregabalin (Lyrica) 150 MG capsule Take 150 mg by mouth at bedtimeActive Continuous Blood Gluc Pediatric Urologist (Dexcom G7 Pediatric Urologist) device USE WCORKFHQ52/17/2023ctive Continuous Blood Gluc Sensor (Dexcom G7 Sensor) misc USE DIRECTED, CHANGE EVERY 10 DAYS08/18/2023ctive Ascorbic Acid (vitamin C) 1000 MG tablet Take 1,000 mg by mouth in the morning.Active b complex vitamins capsule Take 1 capsule by mouth in the morning.Active Bioflavonoid Products (Brooke-C) tablet as directed OrallyActive Coenzyme Q10 (CO Q 10 PO) Take by mouthActive insulin pen needle 31G X 8 mm [facility] Indications:Type 2 diabetes mellitus with peripheral neuropathy (HCC)Injection subcutaneous tid 100 each //ctive tiZANidine (Zanaflex) 4 MG tablet TAKE 1 TABLET BY MOUTH TWICE DAILY NEEDED FOR PAIN FOR 30 DAYSActive traMADol (Ultram) 50 MG tablet TAKE 1 TABLET BY MOUTH TWICE DAILY NEEDED FOR PAIN FOR 30 DAYSActive HumaLOG KWIKPEN 100 UNIT/ML injection Indications:Type 2 diabetes mellitus with peripheral neuropathy (HCC)6 units breakfast, 10 units dinner plus correction 1:30 > 150 mg/dl (max daily 50 units) 15 mL 5Active insulin degludec (Tresiba FlexTouch) 200 UNIT/ML injection Indications:Type 2 diabetes mellitus with peripheral neuropathy (HCC)Inject 26 Units under the skin Daily 9 mL 5Active Semaglutide,0.25 or 0.5MG/DOS, (Ozempic, 0.25 or 0.5 MG/DOSE,) 2 MG/3ML solution pen-injector Indications:Type 2 diabetes mellitus with peripheral neuropathy (HCC)Inject 0.5 mg under the skin 1 (one) time per week 3 mL 5Active insulin degludec (Tresiba FlexTouch) 200 UNIT/ML injection Indications:Type 2 diabetes mellitus with peripheral neuropathy (HCC)Inject 30 Units under the skin Daily 9 mL Discontinued(Dose adjustment) HumaLOG KWIKPEN 100 UNIT/ML injection Indications:Type 2 diabetes mellitus with peripheral neuropathy (HCC)10 units breakfast, 14 units dinner plus correction 1:30 > 150 mg/dl (max daily 50 units) 15 mL 309/16Discontinued(Dose adjustment) Active Problems ProblemNoted DateDiagnosed DateType 2 diabetes mellitus with both eyes affected by mild nonproliferative retinopathy without macular edema, with long-term current use of ywudoxa9004/21/2024Type 2 diabetes mellitus with peripheral cdikwsjclz51/13/2023 Assessment & Plan (10/24/2025 11:23 AM EST): During the appointment today all [...] reflux. Will decrease insulin with starting ozempic. Assessment & Plan (07/27/2025 9:29 AM EDT): [...] 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 roxedzxenhm92/13/2023 Assessment & Plan (02/11/2024 9:19 PM EDT): [...] Long-term insulin use10/12/2023Spondylolisthesis at L3-L4 level10/12/2023S/P laparoscopic zozqxtstwxrkyoi13/13/2023Other hammer toe(s) (acquired), left foot 10/12/2023lass 2 severe obesity with serious comorbidity and body mass index (BMI) of 35.0 to 35.9 in adult10/12/2023arpal tunnel syndrome of right wrist 01/27/2020Chronic foot ulcer04/13/2018 Encounters DateTypeDepartmentCare XgmqFdctvpntlqe36/25/2025 10:30 AM ESTOffice Visit [facility] [address] [place] [phone] Shaina Figueroa, DO Type 2 diabetes mellitus [...] mass index (BMI) of35.0 to 35.9 in adult10/24/2025amboo flowsheet [facility] [address] [place] [address] Shaina Figueroa, DO 10/24/20256587Wczrqh26/12/2025Telephone [facility] [address] [place] [address] Shaina Figueroa, DO Medication Uqfhyibz97/27/2025bstract [facility] [address] [place] [address] Luisito Seymour, DPM 09/25/2025bstract [facility] [address] [place] [address] Luisito Seymour, DPM 08/15/2025Refill [facility] [address] [place] [address] Monica Tee LPN Type 2 diabetes mellitus with peripheral neuropathy (HCC)07/27/2025 8:15 AM EDT Office Visit [facility] [address] [place] [address] Shaina Figueroa, Type 2 diabetes mellitus with [...] index (BMI) of35.0 to 35.9 in adult ([facility])07/27/2025amboo flowsheet [facility] [address] [place] [address] Shaina Figueroa DO 07/27/20251600Jvfkln06/27/2025Travelfrom Last 3 Months Immunizations ImmunizationAdministration DatesNext DueInfluenza, High Dose Seasonal, Preservative Free10/16/2022Influenza, Pmtpruibobt45/17/2022,12/02/2016, 09/08/2012Influenza, injectable, quadrivalent, preservative free08/30/2019 Influenza, seasonal, qqibnczcvl73/01/2019,08/30/2018Influenza, seasonal, injectable, preservative free08/30/2018,12/02/2016Influenza, seasonal, intradermal, preservative free08/30/2021Moderna SARS-CoV-2 Booster Vaccination 09/25/2021Moderna SARS-CoV-2 Rwdsjjpmizk76/28/2021Pneumococcal Conjugate PCV 13 12/02/2016Pneumococcal Polysaccharide LTTB8196/11/2016,10/15/2016Tdap10 Zoster, Pkmppabhjwc08/28/2023,10/28/2022 Family History Medical HistoryRelationNameCommentsDiabetesBrotherNo Known ProblemsDaughter Atrial fibrillationFatherCoronary artery diseaseFatherDementiaFatherHeart diseaseFatherHypertensionFatherParkinsonismFatherSleep apneaFatherAsthmaMother HypertensionMotherSleep apneaMotherDiabetesPaternal GrandfatherDiabetesPaternal GrandmotherDiabetesSiblingHypertensionSonRelationNameStatusCommentsBrotherAlive2 ChildAlive2 sons 1 daughterDaughterAliveFatherDeceasedMotherAlivePaternal GrandfatherDeceasedPaternal GrandmotherDeceasedSiblingAlive2 brothersSonAlive2 Social History Tobacco UseTypesPacks/DayYears UsedDateSmoking Tobacco: NeverSmokeless Tobacco: Never Tobacco Cessation:Counseling Given: Not Answered Alcohol UseStandard Drinks/WeekCommentsNever0 (1 standard drink = 0.6 oz pure alcohol)caffeine: 1-2 cups per day psbvlmZ2675 Health LiteracyAnswerDate RecordedHow often do you need [...] sexual activity by your part ner or ex-partner?07/26/2025Social Connection and Isolation PanelAnswerDate RecordedIn a typical week, how many times do you talk on the phone with family, friends, or neighbors?More than three times a week07/26/2025How often do you get together with friends or relatives?Once a week07/26/2025How often do you attend voodoo or jain services?More than 4 times per year07/26/2025Do you belong to any clubs or organizations such as voodoo groups, unions, fraternal [...] at all 07/26/2025PHQ-2AnswerDate RecordedPatient Health Questionnaire-2 Score0 10/24/2025[facility] [place] of Occupational Health - Occupational Stress QuestionnaireAnswerDate RecordedDo you feel stress - tense, restless, nervous, or anxious, or unable to sleep at night because yourmind is troubled all the time - these days?To some ykiocw2502/08/2024Exercise Vital SignAnswerDate Recorded On average, how many days per week do you engage in moderate to strenuous exercise (like a brisk walk)?Patient hlqxsath71/11/2024On average, how many minutes do you engage in exercise at this level?Patient zytmllpj41/11/2024Hunger Vital SignAnswerDate RecordedWithin the past 12 months, [...] steady place to sleep or slept in ashelter (including now)?No 02/08/2024Housing Stability Vital SignAnswerDate RecordedIn [...] now)?No07/26/2025CommentsUnknownSex and Gender InformationValueDate RecordedSex Assigned at WyxkbCukgnw36/21/2023 8:32 AM EDT Legal LtiHplahq73/15/2023 7:19 PM EDTGender SuljbekePydzlf74/21/2023 8:32 AM EDT Sexual OrientationNot on file Last Filed Vital Signs Vital SignReadingTime TakenCommentsBlood Nxytipci347/7811 10:24 AM EST Lrzjo176010/24/2025 10:24 AM YRINfxrkjahlzy89.5 ??C (97.7 ??F)10/24/2025 10:24 AM ESTRespiratory Rate--Oxygen Vgyhkhjedk66%10/24/2025 10:24 AM ESTInhaled Oxygen Concentration--Zayiog471 kg (222 lb 3.2 oz)05/15/2025 10:29 AM LOWVyatsu169.6 cm (5' 6 )10/24/2025 10:24 AM ESTBody Mass Index35.8605/15/2025 10:29 AM EDT Plan of Treatment DateTypeDepartmentCare Team (Latest Contact Info)Hxheiyurzgt18/24/2026 8:45 AM ESTOffice Visit [facility] [address] [place] [phone] Shaina Figueroa, DO [address] [place], [place] [phone] Health MaintenanceDue DateLast DoneCommentsCT Vqsfotaeuskt1960Colonoscopy 1960Colorectal Cancer Uupkbelep1960FIT-DNA1960FIT1960 FOBT1960 5940Ifrigourcmlvl1960Pap Smear1981Cervical Cancer Tejvytneo84/03/1990HPV/Ihlfxi5111/01/19906021Zztggknvu22/03/2000COVID-19 Vaccine ( season), 10/16/2022, 09/26/2021, Additional history existsInfluenza Vaccine (#1), 10/16/2022, 08/30/2021, Additional history existsPneumococcal Vaccine: Pediatrics (0 to 5 Years) and At- Risk Patients (6 to 64 Years)Aged Out12/02/2016, 11/30/2016, 10/15/2016No longer eligible based on patient's age to complete this topic Procedures Procedure NamePriorityDate/TimeAssociated DiagnosisCommentsPOCT GLYCOSYLATED HEMOGLOBIN (HGB A1C)Takuxut1710/24/2025 10:41 AM EST Type 2 diabetes mellitus with peripheral neuropathy (HCC) from Last 3 Months Results * POCT glycosylated hemoglobin (Hb A1C) docked device (10/24/2025 10:41 AM EST) ComponentValueRef RangeTest MethodAnalysis TimePerformed AtPathologist SignatureHemoglobin A1C7.5Specimen (Source)Anatomical Location / Laterality Collection Method / VolumeCollection TimeReceived TimeBloodVenous blood specimen / Amlybsl2410/24/2025 10:41 AM EST Narrative Authorizing ProviderResult TypeResult StatusShaina Figueroa DOPOINT OF CARE TEST ENTER/EDIT ORDERABLESFinal Result from Last 3 Months Insurance Care Teams Team MemberRelationshipSpecialtyStart DateEnd Date Charan Delgadillo DO [address] [place] [address] [facility]05/20/23
--- OUTSIDE RECORDS SUMMARY | 2025-10-25 09:12 | XMS_ITS | Encounter Summary ---
Author Organization [facility] Address [address] [place] [address] Care Team Providers Care Office Rn Name Role Phone Brysonbryn Charan Louise DO Primary Care Provider [phone] Encounter Details DateTypeDepartmentCare Team (Latest Contact Info)Uewqnjloxnw96/25/2025amboo flowsheet [facility] [address] [facility] [address] [place] [address] Shaina Figueroa DO [address] [facility] [address] [place] [address] Social History Tobacco UseTypesPacks/DayYears UsedDateSmoking Tobacco: NeverSmokeless Tobacco: NeverAlcohol UseStandard Drinks/WeekCommentsNever0 (1 standard drink = 0.6 oz pure alcohol)caffeine: 1-2 cups per day [id number] Health LiteracyAnswerDate RecordedHow often do you need [...] relatives?Once a week07/26/2025How often do you attend jain or spiritism services?More than 4 times per year07/26/2025Do you belong to any clubs or organizations such as jain groups, unions, fraternal or athletic groups, or [...] at all 07/26/2025PHQ-2AnswerDate RecordedPatient Health Questionnaire-2 Score0 10/24/2025[facility] [place] [facility] - Occupational Stress QuestionnaireAnswerDate RecordedDo you feel stress - tense, restless, nervous, or anxious, or unable to sleep at night because yourmind is troubled all the time - these days?To some czcovd6902/08/2024Exercise Vital SignAnswerDate Recorded On average, how many days per week do you engage in moderate to strenuous exercise (like a brisk walk)?Patient iebymnid62/11/2024On average, how many minutes do you engage in exercise at this level?Patient adkfxnwq86/11/2024Hunger Vital SignAnswerDate RecordedWithin the past 12 months, [...] steady place to sleep or slept in [facility] (including now)?No 02/08/2024Housing Stability Vital SignAnswerDate RecordedIn the last 12 months, was there a time when you were not able to pay the mortgage or rent on time?No 07/26/2025In the past 12 months, how many times have you moved where you were living?t any time in the past 12 months, were you homeless or living in a snf (including now)?No07/26/2025CommentsUnknownSex and Gender InformationValueDate RecordedSex Assigned at QbubhWajjbx26/21/2023 8:32 AM EDT Legal BybXburqq37/15/2023 7:19 PM EDTGender GgiuqaynBlgoin30/21/2023 8:32 AM EDT Sexual OrientationNot on filedocumented as of this encounter Plan of Treatment DateTypeDepartmentCare Team (Latest Contact Info)Zcjbfgsqhka18/24/2026 8:45 AM ESTOffice Visit [facility] [address] [place] [phone] Shaina Figueroa, DO [address] [place] [address] documented as of this encounter Visit Diagnoses Not on filedocumented in this encounter Care Teams Team MemberRelationshipSpecialtyStart DateEnd Date Charan Delgadillo DO [address] [place] [id number] PCP - General05/20/23documented as of this encounter
--- OUTSIDE RECORDS SUMMARY | 2025-10-25 09:12 | XMS_ITS | Encounter Summary ---
Author Organization [facility] Address [address] [facility] [place] [address] Care Team Providers Care Paediatric Physiotherapist Name Role Phone Brysonbryn Charan Louise DO Primary Care Provider [phone] Encounter Details DateTypeDepartmentCare Team (Latest Contact Info)Gdpyklsxaaa10/25/2025Travel Social History Tobacco UseTypesPacks/DayYears UsedDateSmoking Tobacco: NeverSmokeless Tobacco: NeverAlcohol UseStandard Drinks/WeekCommentsNever0 (1 standard drink = 0.6 oz pure alcohol)caffeine: 1-2 cups per day [id number] Health LiteracyAnswerDate RecordedHow often do you need [...] relatives?Once a week07/26/2025How often do you attend rastafarian or latter-day services?More than 4 times per year07/26/2025Do you belong to any clubs or organizations such as rastafarian groups, unions, fraternal or athletic groups, or [...] at all 07/26/2025PHQ-2AnswerDate RecordedPatient Health Questionnaire-2 Score0 10/24/2025[facility] [place] [facility] - Occupational Stress QuestionnaireAnswerDate RecordedDo you feel stress - tense, restless, nervous, or anxious, or unable to sleep at night because yourmind is troubled all the time - these days?To some vuspoi7302/08/2024Exercise Vital SignAnswerDate Recorded On average, how many days per week do you engage in moderate to strenuous exercise (like a brisk walk)?Patient szuwnukp11/11/2024On average, how many minutes do you engage in exercise at this level?Patient emyssyfs16/11/2024Hunger Vital SignAnswerDate RecordedWithin the past 12 months, [...] now)?No07/26/2025CommentsUnknownSex and Gender InformationValueDate RecordedSex Assigned at JetghBniszz01/21/2023 8:32 AM EDT Legal LyzStwkxg88/15/2023 7:19 PM EDTGender NzevjxgvAuudpz55/21/2023 8:32 AM EDT Sexual OrientationNot on filedocumented as of this encounter Functional Status * Over the past 2 weeks, how often have you been bothered by any of the following problems?QuestionAnswerDate of AssessmentAuthorLittle interest or pleasure in doing thingsNot at all10/24/2025 10:39 AM Monica Kendall LPNFeeling down, depressed, or hopelessNot at all10/24/2025 10:39 AM Monica Kendall LPNPatient Health Questionnaire-2 Kpzvv29912/24/2024 10:39 AM Monica Kendall LPN documented as of this encounter Plan of Treatment DateTypeDepartmentCare Team (Latest Contact Info)Jvytulnucsl88/24/2026 8:45 AM ESTOffice Visit [facility] [address] [place] [address] Shaina Figueroa DO [address] [place] [address] documented as of this encounter Visit Diagnoses Not on filedocumented in this encounter Care Teams Team MemberRelationshipSpecialtyStart DateEnd Date Charan Delgadillo DO [address] [place] [phone] PCP - General05/20/23documented as of this encounter
--- OUTSIDE RECORDS SUMMARY | 2025-10-25 09:17 | XMS_ITS | CCD ---
Author Organization [facility] Care Team Providers Care Dealer Development Manager Name Role Phone Charan Casey Unavailable [...] Provider MD Federico Sepulveda Attending Provider [phone] MD Elpidio Whipple Attending Provider ACOSTA CASTRO Consulting Unavailable DR YEISON CASEYAN Primary Care Unavailable MATTHEW, ACOSTA Scott Attending Unavailable HIGHLMISAEL, ACOSTA Scott Admitting Unavailable SAQIB DEKCER Consulting Unavailable DIEGO ., MONICA MCMAHON Consulting [...] Scott Consulting Unavailable WESTBRODERICK V Consulting Unavailable [facility], DR HAIDER Primary Care Unavailable HIGHLANDER, ACOSTA [...] Provider Kuns, DO Charan Primary Care Provider [phone] Kuns, DO Charan Attending Provider MD Thierno Chatterjee Attending Provider [phone] Yasmeen Treadwell Unavailable Kuns, DO Charan Primary Care Provider MD Blas Ortiz Attending Provider [phone] MD Elpidio Whipple Attending Provider Kuns, DO Charan Primary Care Provider MD Thierno Chatterjee Attending Provider MD Blas Ortiz Attending Provider MD Elpidio Whipple Attending Provider [phone] MD Yasmeen Treadwell Attending Provider Blas Bellamy [...] Attending Provider MD Blas Ortiz Attending Provider [phone] Kuns, DO Charan Primary Care Provider Kuns, DO Charan Attending Provider Kuns, DO Charan Primary Care Provider Kuns, DO Charan Primary Care Provider MD Blas Ortiz Attending Provider Kuns, DO Charan Primary Care Provider [phone] ROSS Castro Attending Provider Self, Referral Attending Provider Unavailable MD Blas Ortiz Attending Provider Kuns DO, Charan Primary Care Provider [phone] Acosta Castro DPM Attending Provider [phone] Self, Referral Attending Provider Unavailable Blas Ortiz MD Attending Provider [phone] Charan Casey MD Primary Care Provider Moni Becker MD Unavailable [phone] Kunbryn BASSETT, Charan P Primary Care Provider Kuns DO, Charan Primary Care Provider [phone] Nader Curry DO Attending Provider KunCharan clemente DO Attending Provider Kuns DO, Charan Primary Care Provider Blas Ortiz MD Attending Provider Kuns Charan BASSETT Primary Care Provider Nader Curry DO Attending Provider Nader Curry DO Attending Provider Jacinto BASSETT, Charan Primary Care Provider [phone] Charan Casey DO Attending Provider [phone] Nader Curry DO Attending Provider Jacinto DO, Charan Primary Care Provider Jacinto BASSETT, Charan P Primary Care Provider [phone] Kuns DO, Charan Primary Care Provider Brysons DO, Charan Attending Provider [phone] Blas Ortiz MD Attending Provider Jacinto BASSETT, Charan Primary Care Provider [phone] Acosta Castro DPM Attending Provider [phone] Blas Ortiz Admitting Unavailable Blas Ortiz Attending [...] Attending Provider Karla Lyons MD Attending Provider [phone] Charan Casey DO Attending Provider SHAINA MUNROE Attending Unavailable SHAINA MUNROE Attending Unavailable SHAINA MUNROE Attending Unavailable CHARAN CASEY Referring Unavailable SHAINA MUNROE Attending Unavailable Charan Casey DO Primary Care Provider [phone] Allergies Allergy ClassificationReported Allergen(s)Allergy TypeDate of OnsetReaction(s) FacilityLincosamides (antibiotic) (1 source)ClindamycinDrug Wrdpztx69-99-8502nwts City HospitalQuinolones (antibiotic) (1 source)levoFLOXacinDrug Mbtdxns91-80-4127srsgwbketylgXrrwyehmv [facility] (20 sources)Erythromycin; Translations: [Erythromycin Base TABS]Drug Allergy 72-18-9246vohiiq, Nausea/vomiting, UnknownUnMercy Health [facility] (20 sources)ClindamycinDrug Ltktdar77-76-2345ag[facility] (20 sources)arzithomycinPropensity to adverse qyimqosda50-49-3857gmyoqah [facility] (20 sources)erythromycin base; Translations: [Erythromycin Base]Propensity to adverse iyhkozozy84-80-9256Dymful OnlyScci Hospital [facility]ima (2 sources)levoFLOXacinDrug AllergyhypoglycemiaNort [employer] Other (20 sources)levoFLOXacin; Translations: [LEVOFLOXACIN]Drug Wrkrxyx09-16-9677 Nausea/vomiting, GI intoleranceScci Hospital Lima Medications Current Medications MedicationDrug Class(es)DatesSig (Normalized)Sig (Original)allopurinol 100 mg oral tablet (20 sources)Xanthine Oxidase InhibitorStart: 06-15-2020 End: 98-45-3877icvo 1 tablet by mouth in the morningallopurinol [...] sources)Platelet Aggregation Inhibitor, Nonsteroidal Anti-inflammatory Drug Start: 99-68-2733lvby 1 tablet by mouth once daily in [...] Sensor (Dexcom G7 Sensor) device (19 sources)Start: 65-61-6004Coccb-Glucose Sensor (Dexcom G7 Sensor) device Active 0 .Route September 11, 2024 11:00pm As directedStart: 67-57-9969Acoiy- Glucose Sensor (Dexcom G7 Sensor) device Active [...] 0.05 mg oral capsule (20 sources)Vitamin DStart: 50-69-8364dnse 1 capsule by mouth once daily Cholecalciferol (Vitamin D3) 50 mcg (2,000 unit) capsule Active 50 MCG PO Daily March 01, 2024 12:00am Complies with drug therapyStart: 00-36-3339KZF Vitamin D Maximum Strength 50 MCG (2000 UT) tablet Take by mouth Daily. 12/30/2022 Active clotrimazole 10 mg oral lozenge (1 source)Azole AntifungalStart: 39-06-3161Oernqvdrbhjb 10 mg deshawn Active 10 MG MUCOUS MEM Five times daily July 12, 2025 12:00am Complies with drug therapyCoenzyme Q10 (CO Q 10 PO) (6 sources)Coenzyme Q10 (CO Q 10 PO) Take by mouth ActiveContinuous Blood Gluc Electron Beam Welder (Dexcom G7 Electron Beam Welder) device (9 sources)Start: 40-15-1696Cfyfmokohw Blood Gluc Electron Beam Welder (Dexcom G7 Electron Beam Welder) device USE DIRECTED 07/16/2023 ActiveContinuous Blood Gluc Sensor (Dexcom G7 Sensor) misc (9 sources)Start: 40-42-8441Llzqlpcrpe Blood Gluc Sensor (Dexcom G7 Sensor) misc USE DIRECTED, CHANGE EVERY 10 DAYS 08/18/2023 ActiveCoQ-10 (15 sources)CoQ-10 ActiveCoQ-10 100 MG (6 sources)CoQ-10 100 MG as directed Orally ONCE A DAY ActiveDexcom G6 Electron Beam Welder - (20 sources)Start: 83-26-1484Jwlvqa G6 Electron Beam Welder - use as directed to monitor dexcom sensor Feb, ActiveStart: 14-07-2033Ooixvg G6 Sensor - (20 sources)Start: 34-57-0709Nitscp G6 Sensor - as directed change q 10 days for 90 days Feb, ActiveStart: 15-55-2823Akemtq G6 Sensor - as directed change q 10 days Feb, ActiveStart: 99-94-0648Pmvhfr G6 Transmitter - (20 sources)Start: 18-26-5919Nynbqa G6 Transmitter - as directed change Q 3 months Feb, ActiveStart: 42-23-7177Uuiniu G7 Electron Beam Welder - (20 sources)Start: 52-41-6684Ufogqy G7 Electron Beam Welder - as directed as directed as directed Jun, ActiveDexcom G7 Sensor - (20 sources)Start: 52-67-1151Dobdwf G7 Sensor - as directed as directed change every 10 days for 90 days Jun, ActiveStart: 35-18-7815Oyniea G7 Sensor - as directed as directed change every 10 days for 30 days Jun, Active diclofenac sodium 20 mg/ml topical solution (20 sources)Nonsteroidal Anti-inflammatory DrugStart: 53-06-8880Hfmtdabk 2 % 2 pumps to affected area Transdermal Twice a day Aug, ActiveStart: 41-46-5691aprxfgtbeejxau 1.25 mg oral capsule (20 sources)Provitamin D2 CompoundStart: 24-95-7230ztxd 1 capsule by mouth once dailyergocalciferol (Vitamin D-2) 1.25 MG (42675 UT) capsule Take 1 capsule (50,000 Units) by mouth oncedaily. 08/29/2021 ActiveStart: 76-68-0119fwef 1 tablet by mouth two times weeklyVitamin D (Ergocalciferol) 1.25 MG (66208 UT) Oral Capsule Take 1 tablet twice weekly Quantity: 0 Refills: 0 Ordered: 14-Jan-2022 DO Start : 29-Aug-2021 ActiveStart: 06-15-2020 End: 02-83-2700jgdv 1 capsule by mouth every weekErgocalciferol (Vitamin D2) 1,250 mcg (50,000 unit) Capsule Discontinued 1250 MCG PO every week June 15, 2020 12:00am March 01, 2024 9:34am thursdaytake 1 capsule by mouth every week Ergocalciferol 54106 UNIT 1 capsule Orally Q week Activetake 1 capsule by mouth every weekErgocalciferol 95894 UNIT 1 capsule Orally Q week ActiveEster-C - (20 sources)Brooke-C - as directed Orally Activefluticasone propionate 0.05 mg/actuat metered dose nasal spray (10 sources)CorticosteroidStart: 76-30-8925eyle 1 spray(s) nasal route twice dailyFluticasone Propionate 50 MCG/ACT 1 spray in each nostril Nasally Twice a day for 14 days Sep, ActiveStart: 45-15-5293ayve 1 spray(s) nasal route twice dailyFluticasone Propionate 50 MCG/ACT 1 spray in each nostril Nasally Twice a day for 14 days Sep, Active3 ml insulin degludec 200 unt/ml pen injector (18 sources)Insulin AnalogStart: 46-44-7052nhwrsow degludec (Tresiba FlexTouch) 200 UNIT/ML injection Indications: Type 2 diabetes mellitus with peripheral neuropathy (HCC) Inject 30 Units under the skin Daily 9 mL 3 07/27/2025 Active Start: 88-90-2508ddxitwq degludec (Tresiba FlexTouch) 200 UNIT/ML injection Indications: Type 2 diabetes mellitus with peripheral neuropathy (HCC) Inject 30 Units under the skin Daily 9 mL 3 07/27/2025 ActiveStart: 02-16-2025 End: 30-93-0773Awufodg Degludec 200 unit/mL (3 mL) insulin pen Discontinued UNIT SUBCUT February 16, 2025 12:00am March 06, 2025 8:16amStart: 02-14-2025 End: 48-59-4165uwhekhd degludec (Tresiba FlexTouch) 200 UNIT/ML injection Indications: Type 2 diabetes mellitus with peripheral neuropathy (HCC) Inject 60 Units under the skin Daily 9 mL 3 02/14/2025 07/27/2025 Discontinued (Dose adjustment)Insulin Degludec 200 unit/mL (3 mL) insulin pen (5 sources)Start: 63-06-3736Rcgmwtm Degludec 200 unit/mL (3 mL) insulin pen Active 60 UNIT SUBCUT Daily March 06, 2025 8:13amStart: 02-16-2025 End: 11-30-2125Osmomho Degludec 200 unit/mL (3 mL) insulin pen Discontinued UNIT SUBCUT February 16, 2025 12:00am March 06, 2025 8:16amStart: 01-39-1699Mvlalxx Degludec 200 unit/mL (3 mL) insulin pen Active UNIT SUBCUT February 16, 2025 12:00am3 ml insulin lispro 100 unt/ml pen injector (20 sources)Insulin AnalogStart: 07-24-3317MsuhGWS KWIKPEN 100 UNIT/ML injection Indications: Type 2 diabetes mellitus with peripheral neuropathy (HCC) 10 units breakfast, 14 units dinner plus correction 1:30 > 150 mg/dl (max daily 50 units ) 15 mL 3 08/15/2025 ActiveStart: 02-16-2025 End: 73-65-1200uqqdimm lispro (HumaLOG KWIKPEN) 100 UNIT/ML injection Indications: Type 2 diabetes mellitus with peripheral neuropathy (HCC) 10 units breakfast, 14 units dinner plus correction 1:30 > 150 mg/dl (max daily 50 units) 15 mL 3 05/15/2025 ActiveStart: 89-77-5980araqzek lispro (HumaLOG) 100 UNIT/ML injection Indications: Type 2 diabetes mellitus with peripheral neuropathy (CMS/HCC) 5 units breakfast and dinner 15 mL 3 06/21/2024 ActiveStart: 72-48-2449xlpclk 100 [IU] by subcutaneous injection at bedtimeInsulin Lispro (1 Unit Dial) 100 UNIT/ML Subcutaneous Solution Pen-injector ADMINISTER 5-6 UNITS SUBCUTANEOUSLY IN THE MORNING AND at bedtime Quantity: 12 Refills: 0 Ordered: 06-Apr-2023 DO Start : 06-Apr-2023 ActiveStart: 03-25-2022 End: 94-44-9536qxlxqp 100 [IU] by subcutaneous injection once daily at bedtime as neededInsulin Lispro (Humalog Kwikpen Insulin) 100 unit/mL insulin pen Discontinued 5 - 6 UNIT SUBCUT Twice daily February 23, 2024 5:04pm February 16, 2025 9:40am once a day in the morning and PRN QHSStart: 07-25-2020 End: 72-21-7081dodjnt 5 [IU] by subcutaneous injection once daily at breakfast Insulin Lispro (Humalog Kwikpen Insulin) 100 unit/mL Insulin Pen Discontinued 5 UNIT SUBCUT Daily with breakfast July 25, 2020 12:00am February 23, 2024 5:05pmStart: 06-15-2019 End: 31-93-9968idenjn 5 [IU] by subcutaneous injection once daily [...] Insulin) 100 unit/mL insulin pen (20 sources)Start: 41-28-6557Vetyxqu Lispro (Humalog Kwikpen Insulin) 100 unit/mL insulin pen Active 8 - 12 UNIT SUBCUT Twice daily February 16, 2025 9:38am 8 units AM 12 units in the Afternoon and 12 units in the eveningStart: 02-23-2024 End: 28-94-0956cotxys 100 [IU] by subcutaneous injection once daily at bedtime as neededInsulin Lispro (Humalog Kwikpen Insulin) 100 unit/mL insulin pen Discontinued 5 - 6 UNIT SUBCUT Twice daily February 23, 2024 5:04pm February 16, 2025 9:40am once a day in the morning and PRN QHSStart: 65-69-8631moyvjk 100 [IU] by subcutaneous injection once daily at bedtime as neededInsulin Lispro (Humalog Kwikpen Insulin) 100 unit/mL insulin pen Active 5 - 6 UNIT SUBCUT Twice daily February 23, 2024 4:04pm once a day in the morning and PRN QHSStart: 00-85-4205akcdvz 100 [IU] by subcutaneous injection once daily at bedtime as neededInsulin Lispro (Humalog Kwikpen Insulin) 100 unit/mL insulin pen Active 5 - 6 UNIT SUBCUT Twice daily February 23, 2024 5:04pm once a day in the morning and PRN QHS3 ml insulin, regular, human 500 unt/ml pen injector (20 sources)InsulinStart: 87-65-0995xuidncd regular (HumuLIN R U-500 KWIKPEN) 500 UNIT/ML CONCENTRATED injection Indications: Type 2 diabetes mellitus with peripheral neuropathy (CMS/HCC) 55 units breakfast and 25 units dinner 6 mL 3 ActiveStart: 03-01-2024 End: 17-81-4747Kdqbxov Regular Hum U-500 Conc (Humulin R U-500 (Conc) Kwikpen) 500 unit/mL (3 mL) insulin pen Discontinued 55 UNIT SUBCUT Twice daily March 01, 2024 9:35am February 16, 2025 9:37amStart: 02-23-2024 End: 54-56-2937heqdsp 60 [IU] by subcutaneous injection in the morning, then inject 30 [IU] by subcutaneous injection in the eveningInsulin Regular Hum U-500 Conc (Humulin R U-500 (Conc) Kwikpen) 500 unit/mL (3 mL) insulin pen Disco ntinued 0 SUBCUT As Directed February 23, 2024 5:09pm March 01, 2024 9:42am 60 units in the morning and 30 units in the evening subcutaneously as directed; Start: 87-79-1363wclbhkp regular (HumuLIN R U-500 KWIKPEN) 500 UNIT/ML CONCENTRATED injection Indications: Type 2 diabetes mellitus with peripheral neuropathy (CMS/HCC) 55 units breakfast and 25 units dinner 3 mL 10/12/2023 ActiveStart: 80-63-2517ghoobm 60 [IU] by subcutaneous injection in the morning, then inject 30 [IU] by subcutaneous injection in the eveningHumuLIN R U-500 KwikPen 500 UNIT/ML Subcutaneous Solution Pen-injector ADMINISTER 60 UNITS IN THE MORNING AND 30 UNITS IN THE EVENING Quantity: 12 Refills: 0 Ordered: 06-Apr-2023 DO Start : 4-Khw-0142IpyoioPaypp: 02-11-2018 End: 50-48-5171Uqkomke Regular Hum U-500 Conc (Humulin R U-500 (Conc) Insulin) 500 unit/mL solution Discontinued 80 UNIT SUBCUT Daily with breakfast February 11, 2018 11:16am February 12, 2024 12:28pm Patient varies dosage depending on dietary intakeStart: 02-11-2018 End: 01-93-6225jhnzne 40 [IU] by subcutaneous injection once dailyInsulin Regular Hum U-500 Conc (Humulin R U-500 (Conc) Insulin) 500 unit/mL solution Discontinued 40 UNIT SUBCUT Daily with supper February 11, 2018 11:16am February 12, 2024 12:29pm Pt. varies dosage according to dietary intake.Start: 01-21-2018 End: 33-30-5553dlggjq 1 dose by subcutaneous injection four times [...] hs if glucose >225. Please contact the [employer] source for Protocol details.Start: 01-21-2018 End: 17-19-5088Qyxolff Regular Hum U-500 Conc (Humulin R U-500 (Conc) Kwikpen) 500 unit/mL (3 mL) Insulin Pen Discontinued 0 .ROUTE .COMPLEX January 21, 2018 1:00am February 11, 2018 11:17am Check glucose ac, hs.Use corrective scale ac tid. Use hs if glucose >225. Please contact the information source for Pr otocol details.Start: 01-17-2018 End: 30-19-1470Wgwxsvd Regular Hum U-500 Conc (Humulin R U-500 (Conc) Insulin) 500 unit/mL solution Discontinued 90 UNIT SUBCUT Daily with breakfast 0 January 21, 2018 8:54am February 11, 2018 11:16am If eatingStart: 12-25-2017 End: 88-75-1479Uellktd Regular Hum U-500 Conc (Humulin R U-500 (Conc) Insulin) 500 unit/mL Solution Discontinued 80 UNIT SUBCUT Daily with supper 0 January 02, 2018 6:07pm January 17, 2018 1:34amStart: 12-25-2017 End: 66-06-6697Gbjvcsx Regular Hum U-500 Conc (Humulin R U-500 (Conc) Insulin) 500 unit/mL Solution Discontinued 100 UNIT SUBCUT Daily with breakfast 0 January 03, 2018 3:07pm January 17, 2018 1:34amStart: 12-25-2017 End: 32-06-1859mdahwj 100 [IU] by subcutaneous injection once daily before breakfastInsulin Regular Human (Humulin R U-100) 100 unit/mL Solution Discontinued 100 UNITS SUBCUT Daily before breakfast December 25, 2017 1:00am December 25, 2017 3:53pmStart: 12-25-2017 End: 19-02-3039pzlstu 80 [IU] by subcutaneous injection once dailyInsulin [...] (Probiotic) 3 billion cell capsule (1 source)Start: 23-44-8571eksk 3 capsules by mouth once dailyLactobacillus Combination No.4 (Probiotic) 3 billion cell capsule Active 3000 MMU CELLS PO Daily July 12, 2025 12:00am administer with a meal Complies with drug therapylevoFLOXacin 500 mg oral tablet (3 sources)Quinolone AntimicrobialStart: 35-50-8075ndxe 1 tablet by mouth every twenty-four hourslevoFLOXacin 500 MG 1 tablet Orally Once a day for 7 days Nov, Activelinezolid 600 mg oral tablet (1 source)Oxazolidinone AntibacterialStart: 05-62-6478mhxj 1 tablet by mouth twice dailyLinezolid 600 mg tablet Active 600 MG PO Twice daily July 12, 2025 12:00am Complies with drug therapymagnesium glycinate 100 mg oral tablet (20 sources)Start: 54-02-5594Ybuvqpsjx Glycinate 100 mg Tablet Active 600 MG PO Daily at bedtime June 17, 2019 12:00am Complies with drug therapyStart: 51-55-6045biyx 600 mg by mouth once daily at bedtimeMagnesium Glycinate Active 600 MG PO Daily at bedtime June 17, 2019 12:00amStart: 01-19-2018 End: 07-64-0469Bqmgbyenu Glycinate 100 mg Tablet Discontinued 600 MG PO Daily at bedtime January 19, 2018 1:00am February 11, 2018 11:15amStart: 01-19-2018 End: 92-12-3937mmge 600 mg by mouth once daily at bedtimeMagnesium Glycinate Discontinued 600 MG PO Daily at bedtime January 19, 2018 1:00am February 11 11:15amMagnesium Glycinate Plus 600 mg (20 sources)Magnesium Glycinate Plus 600 mg 1 tablet QHS Activenitroglycerin 0.4 mg sublingual tablet (20 sources)Nitrate VasodilatorStart: 95-87-7967Rewguzyoldywz 0.4 mg tablet, sublingual Active 0.4 MG BUCCAL As Directed as needed for Chest Pain March 25, 2022 12:00am Complies with drug therapyStart: 57-96-8534rqyonlttpbkma (Nitrostat) 0.4 mg SL tablet Indications: Chest pain, unspecified DISSOLVE 1 TABLET UNDER THE TONGUE EVERY 5 MINUTES NEEDED FOR CHEST PAIN. DO NOT EXCEED A TOTAL OF 3 DOSES IN 15 MINUTES. GO TO THE ER IF PERSISITS. 90 tablet 1 12/24/2023 ActiveStart: 49-50-1975Dsjtrokgdtiqo Active 0.4 MG BUCCAL As Directed March 24, 2022 11:00pmomega-3 acid ethyl esters (longterm) 1000 mg oral capsule (20 sources)Start: 26-22-9774evjf 1 capsule by mouth in the morningomega-3 acid ethyl esters (Lovaza) 1 g capsule Take 2 g by mouth in the morning and 2 g before bedtime. 03/04/2023 ActiveStart: 06-15-2019 End: 14-52-0665Btlao-3 Acid Ethyl Esters (Lovaza) 1 gram capsule Discontinued 2 CAP PO Twice daily 360 90 September 23, 2024 11:59am April 11, 2025 4:11pmStart: 12-25-2017 End: 72-83-7475Lvbsk-3 Acid Ethyl Esters (Lovaza) 1 gram Capsule Discontinued 2 CAP PO Twice daily December 25, 2017 1:00am January 03, 2018 3:03pmomega-3 acid ethyl esters (Lovaza) 1 gram capsule Take 1 capsule (1 g) by mouth twice a day. ActivePen Needle, Diabetic (2 sources)Start: 33-04-5658Uic Needle, Diabetic Active 0 .Route September 12, 2024 1:53pm As directedStart: 09-12-2024 End: 11-17-9279Xvi Needle, Diabetic Discontinued 0 .Route September 12, 2024 12:00am September 12, 2024 1:53pmAs directedpolyethylene glycol 3350 318469 mg / potassium chloride 2970 mg / sodium bicarbonate 6740 mg / sodium chloride 5860 mg / sodium sulfate 90831 mg powder for oral solution (2 sources)Osmotic LaxativeStart: 16-35-0825Scewsewu 236 GM At 4:00 pm the day prior to colonoscopy Orally 8 ounces every 15 minutes for 1 daysPLEASE CHECK ALLERGIES Jul, Activepregabalin 150 mg oral capsule (20 sources)Start: 01-09-2025 End: 21-31-1244tnvp 1 capsule by mouth twice dailyPregabalin (Lyrica) 150 mg capsule Active 150 MG PO Twice daily 180 90 January 09, 2025 11:34am Complies with drug therapyStart: 57-34-9841ubbw 1 capsule by mouth once in the morning Pregabalin 75 MG 1 capsule Orally Q AM Dec, ActiveStart: 08-02-2021 Start: 43-80-5714kkoa 1 capsule by mouth once in the morningPregabalin 75 MG 1 capsule Orally Q AM Jul, ActiveStart: 04-01-2021 End: 16-43-3716knfs 1 capsule by mouth once dailyPregabalin (Lyrica) 150 mg capsule Discontinued 150 MG PO Daily 90 February 12, 2024 12:34pm February 12, 2024 5:43pmStart: 04-01-2021 End: 64-58-4300wzxx 2 capsules by mouth once daily in the morningPregabalin 75 mg capsule Discontinued 150 MG PO Every morning April 01, 2021 12:00am February 12, 2024 12:25pmStart: 06-15-2019 End: 92-25-8345sbhv 1 capsule by mouth once daily at bedtimePregabalin (Lyrica) 300 mg capsule Discontinued 300 MG PO Daily at bedtime 90 February 12, 2024 12 :35pm February 12, 2024 5:46pmStart: 01-21-2018 End: 30-49-2234jumm 1 capsule by mouth twice dailyPregabalin (Lyrica) 75 mg Capsule Discontinued 75 MG PO Twice daily January 21, 2018 1:00am February 11, 2018 11:16amStart: 12-25-2017 End: 56-48-0382mwss 1 capsule by mouth twice dailyPregabalin (Lyrica) 300 mg Capsule Discontinued 300 MG PO Twice daily December 25, 2017 1:00am January 03, 2018 3:03pm End: 21-43-2711hefz 1 capsule by mouth once daily in the morningPREGABALIN ORAL Take 1 capsule by mouth once daily in the morning. 0 02/22/2024 Discontinued (Other)Lyrica CAPS TAKING 150MG IN AM, 300MG IN PM Quantity: 0 Refills: 0 Ordered: 20-Feb-2022 DO ActiveSuper B Complex (20 sources)Super B Complex Activeubidecarenone 300 mg oral capsule (20 sources)Start: 14-48-3547cfxg 10 capsules by mouth once dailyCoenzyme Q10 300 mg capsule Active 300 MG PO Daily March 01, 2024 12:00am Complies with drug therapyStart: 80-62-6242uwqv 1 capsule by mouth twice dailyCo-Enzyme Q10 100 MG Oral Capsule TAKE 1 CAPSULE TWICE DAILY. Quantity: 180 Refills: 3 Ordered: Rosalinda Torres MD Start : 08-May-2022 ActiveCoQ-10 100 MG as directed Orally ONCE A DAY Activeubiquinol (2 sources)COQ10, UBIQUINOL, ORAL Take by mouth. AnsjcuUJO84, UBIQUINOL, ORAL Take by mouth. 0 ActiveVitamin B Complex (20 sources)Start: 45-02-6652bdtz 1 tablet by mouth once daily in the morning Vitamin B Complex Active 1 TAB PO Every morning June 15, 2019 12:00amStart: 34-39-9042qpol 1 tablet by mouth once daily in the morningVitamin B Complex Active 1 TAB PO Every morning June 14, 2019 11:00pmVitamin B Complex Tablet (18 sources)Start: 13-52-6041tyxa 1 tablet by mouth once daily in the morning Start: 37-37-1505xnax 1 tablet by mouth once daily in the morningVitamin B Complex Tablet Active 1 TAB PO Every morning June 15, 2019 12:00am Complies with drug therapyStart: 59-59-6732lzvg 1 tablet by mouth once daily in the morningVitamin B Complex Tablet Active 1 TAB PO Every morning June 15, 2019 12:00amStart: 10-52-3262murp 1 tablet by mouth once daily in the morningVitamin B Complex Tablet Active 1 TAB PO Every morning June 14, 2019 11:00pm Completed/Discontinued Medications MedicationDrug Class(es)DatesSig (Normalized)Sig (Original)Accu-Chek Vicenta as manufactured (20 sources)Start: 38-30-7693Fobg-Chek Vicenta as manufactured four times daily 250.92/V58.67 qid Nov, Not-TakingStart: 37-79-0666Tyvw-Chek Vicenta as manufactured four times daily 250.92/V58.67 qid Nov, ActiveStart: 61-10-9966Cwsq-Chek SmartView as manufactured (20 sources)Start: 65-31-5213Ktpa-Chek SmartView as manufactured QID e11.9 QID Nov, Not-TakingStart: 48-61-4245Gwgn-Chek SmartView as manufactured QID e11.9 QID Nov, ActiveStart: 75-36-9761ghtsuvslemiqa 325 mg / HYDROcodone bitartrate 5 mg oral tablet (20 sources)Opioid AgonistStart: 06-19-2020 End: 78-42-9082rwzu 1 tablet by mouth twice daily as needed for painHydrocodone- Acetaminophen (Burdine) 5-325 mg tablet Discontinued 1 TAB PO Twice daily as needed for Pain June 19, 2020 12:00am July 27, 2020 8:14amStart: 01-17-2018 End: 22-68-0215phak 1-2 tablets by mouth every six hours as needed for pain Hydrocodone-Acetaminophen (Burdine) 5-325 mg tablet Discontinued 2 TAB PO Q6H as needed for pain 45 February 17, 2018 June 15, 2019 1:47pm 1-2 tabs every 6 hours as needed for painacetaminophen 325 mg / oxyCODONE hydrochloride 5 mg oral tablet (20 sources)Opioid AgonistStart: 01-03-2018 End: 26-79-8516fijl 1 tablet by mouth every four hours as needed for pain Oxycodone-Acetaminophen 5-325 mg Tablet Discontinued 1 TAB PO Q4H as needed for Pain 10 5 January 03, 2018 1:00am January 17, 2018 1:34amalendronic acid 70 mg oral tablet (11 sources)BisphosphonateStart: 67-50-8717bxat 1 tablet by mouth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 non-traumatic joint disorders (20 sources)Pain in right knee; Translations: [Pain in right knee]EpisodicOther non-traumatic joint disorders (20 sources)Arthralgia of the ankle and/or foot; Translations: [Pain in left ankle and joints of left foot]83-71-6153IfusbqjtSdesd non-traumatic joint disorders (18 sources)Pain in right shoulder; Translations: [Right shoulder pain]Onset: 293935-93-7339CfqefaaxUjrkj non-traumatic joint disorders (13 sources)Joint pain; Translations: [Pain in unspecified joint]01-09-2025 EpisodicOther nutritional; endocrine; and metabolic disorders (20 sources)Obesity; Translations: [Obesity, unspecified]Onset: 02-22-2024 51-74-2670NmvhkrbAwcjf nutritional; endocrine; and metabolic disorders (20 sources)Hypercalcemia; Translations: [Hypercalcemia]ChronicOther nutritional; endocrine; and metabolic disorders (20 sources)Hypomagnesemia; Translations: [Hypomagnesemia]05-06-3834RmezxvwFwhuw nutritional; endocrine; and metabolic disorders (6 sources)Hypomagnesemia; Translations: [Disorders of magnesium metabolism] ChronicOther nutritional; endocrine; and metabolic disorders (2 sources)Obesity, unspecified; Translations: [Obesity, unspecified]Onset: 44-84-2699BdpasbtEsaod nutritional; endocrine; and metabolic disorders (2 sources)Body mass index (BMI) 37.0-37.9, adult; Translations: [Body mass index (BMI) 37.0-37.9, adult]Onset: 30-16-6730PerbzhmKcldc nutritional; endocrine; and metabolic disorders (15 sources)Severe obesity; Translations: [Class 2 severe obesity due to excess calories with serious comorbidity and body mass index (BMI) of 39.0 to 39.9 in adult ([facility])]Onset: 090054-85-2329KlhfigjBrkqj nutritional; endocrine; and metabolic disorders (12 sources)Hyperuricemia without signs of inflammatory arthritis and tophaceous disease; Translations: [Other abnormal blood chemistry]Onset: 12-03-2021 Resolved: 30-82-7795OfaojqapYhrjn nutritional; endocrine; and metabolic disorders (20 sources)Hyperuricemia; Translations: [Hyperuricemia without signs of inflammatory arthritis and tophaceous disease]68-50-2223ReqqybukRkpuk nutritional; endocrine; and metabolic disorders (20 sources)H/O: metabolic disorder; Translations: [Personal history of other endocrine, nutritional and metabolic disease]97-68-3328NezldlrtSjtbb screening for suspected conditions (not mental disorders or infectious disease) (20 sources)Cardiovascular finding; Translations: [Abnormal findings on diagnostic imaging of other specified body structures]11-10-0552NusnrbpUkrcs screening for suspected conditions (not mental disorders or infectious disease) (14 sources)Electrocardiogram abnormal; Translations: [Nonspecific abnormal electrocardiogram [ECG] [EKG]]Onset: 29-98-4857BksfydwbUufol upper respiratory infections (1 source)Acute pansinusitis, unspecifiedEpisodicPancreatic disorders (not diabetes) (20 sources)Pancreatitis; Translations: [Acute pancreatitis without necrosis or infection, unspecified]47-57-1475VdhzrxftHxhkzfim codes; unclassified (20 sources)Obstructive sleep apnea syndrome; Translations: [Obstructive sleep apnea (adult)(pediatric)]Onset: 836599-17-6752BorukcoUcxzptzq codes; unclassified (8 sources)Obstructive sleep apnea (adult) (pediatric); Translations: [Obstructive sleep apnea (adult)(pediatric)]Onset: 02-07-2022 Resolved: 80-38-0978IeejvcxYxvrvjeg codes; unclassified (20 sources)Sleep apnea; Translations: [Sleep apnea, unspecified]ChronicResidual codes; unclassified (2 sources)Sleep apnea, unspecified; Translations: [SLEEP APNEA UNSPECIFIED] Onset: 49-80-1694MmtguebVvqhmlkh codes; unclassified (20 sources)Insomnia; Translations: [Insomnia, unspecified]01-56-5489Sbuvltuu Residual codes; unclassified (2 sources)Other specified postprocedural statesOnset: 04-14-2022 Resolved: 97-59-5258YwsqwdfxBnjudair codes; unclassified (3 sources)Insomnia, unspecifiedOnset: 04-30-2022 Resolved: 17-50-2362RpkonexzVibexoql codes; unclassified (14 sources)Family history of dementia; Translations: [Family history of other mental and behavioral disorders]07-32-5599JweazljlUrtlkxbp codes; unclassified (9 sources)Family history of other mental and behavioral disorders; Translations: [Family history of other neurological diseases]12-94-1047Nrecybaf Septicemia (except in labor) (20 sources)Septic shock; Translations: [Sepsis, unspecified organism]02-17-2018 EpisodicSpondylosis; intervertebral disc disorders; other back problems (20 sources)Cervical spondylosis without myelopathy; Translations: [Spondylosis without myelopathy or radiculopathy, cervical region]Onset: 10-01-2021 Resolved: 51-41-6125DxmzaohMkhdclobtdm; intervertebral disc disorders; other back problems (20 sources)Neck pain; Translations: [Cervicalgia]Onset: 10-01-2021 Resolved: 99-47-9618EuondccxIdokxvs and strains (15 sources)Traumatic rupture of biceps tendon; Translations: [Strain of muscle, fascia and tendon of long headof biceps, unspecified arm, initial encounter] 70-27-6182VguaoqkeDebqmymhwtch (1 source)CONTACT W/AND (SUSP) EXPOS COVID-19; Translations: [CONTACT W/AND (SUSP) EXPOS COVID-19]Onset: 29-96-1129Wqflupfprrmc (1 source)Cough, unspecified; Translations: [Cough, unspecified]Onset: 12-08-2024 Past or Other Problems Problem ClassificationProblemDateDocumented DateEpisodic/ChronicAcquired foot deformities (3 sources)Varus deformity, not elsewhere classified, left ankle; Translations: [Valgus deformity, not elsewhere classified, left ankle]Onset: 01-06-2023 EpisodicCardiac dysrhythmias (6 sources)Ventricular premature beats; Translations: [Other premature beats] Resolved: 51-40-2722ZuyuogsSaitddo kidney disease (20 sources)Chronic kidney disease; Translations: [Chronic kidney disease, stage III (moderate)]Onset: 02-20-2022 Resolved: 66-93-1447Bmtbs acquired deformities (20 sources)Lumbar spondylolisthesis; Translations: [Spondylolisthesis, lumbar region]Onset: 164493-89-5336WsmkzbxoPnggn aftercare (20 sources)Long-term current use of insulin; Translations: [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]Onset: 469971-77-8287VmresolsDivwv aftercare (1 source)Other group home (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 therapy; Translations: [OT THREAD CLIPPER CURRENT DRUG THERAPY]Onset: 00-01-3514LqvoizaiWgiao aftercare (1 source)shelter (current) use of insulin; Translations: [THREAD CLIPPER CURRENT USE OF INSULIN]Onset: 54-49-7436XgmuincwBoeyg aftercare (1 source)termite technician (current) use of aspirin; Translations: [JAIL CURRENT USE OF ASPIRIN]Onset: 92-12-8423RlzdjhguLwhrq aftercare (1 source)shelter (current) use of anticoagulants; Translations: [THREAD CLIPPER CURRNT USE ANTICOAGULANTS]Onset: 24-81-2334JhuljgcdAwajx bone disease and musculoskeletal deformities (1 source)Other specified disorders of bone density and structure, left ankle and foot; Translations: [OT D/O BONE DEN STRUCT LT ANK FOOT]Onset: 01-06-2023 EpisodicOther connective tissue disease (4 sources)Pain in left foot; Translations: [PAIN IN LEFT FOOT]Onset: 11-16-2022 EpisodicOther connective tissue disease (1 source)Pain in right foot; Translations: [PAIN IN RIGHT FOOT]Onset: 67-49-6137AvvfdbmaMjkcb connective tissue disease (20 sources)Unspecified rotator cuff tear or rupture of right shoulder, not specified as traumatic; Translations: [Disorders of bursae and tendons in shoulder region, unspecified]Onset: 146659-89-0212SdabjnnkYzqcp lower respiratory disease (6 sources)Dyspnea on exertion; Translations: [Other respiratory abnormalities] Resolved: 21-74-8857GhotlxzmZvokd lower respiratory disease (2 sources)Shortness of breathOnset: 02-07-2022 Resolved: 94-81-7357QstglojwUqvai non-traumatic joint disorders (4 sources)Pain in right ankle and joints of right foot; Translations: [PAIN IN RIGHT ANKLE]Onset: 31-93-5375YoqaubneXmvdz non-traumatic joint disorders (1 source)Pain in left ankle and joints of left foot; Translations: [PAIN IN LEFT ANKLE]Onset: 93-45-6866KjwdwareIetgngbn codes; unclassified (6 sources)History of palpitations; Translations: [Personal history of other diseases of circulatory system] Resolved: 73-59-1736ObrwkfguEhjkqmoh codes; unclassified (1 source)Acquired absence of other specified parts of digestive tract; Translations: [ACQ ABSENCE OTH PART DIGESTV TRACT]Onset: 87-10-1638Hjwugcbu Substance-related disorders (1 source)Opioid use, unspecified, uncomplicatedOnset: 10-01-2021 Resolved: 26-50-2843XsyudqesOuglkehelfyq (6 sources)Never smoked tobacco; Translations: [Never a smoker]Unclassified (1 source)Cough R05.9Onset: 12-03-2021 Resolved: 74-91-0378Cfjkcfkyghlh (1 source)Low back pain, unspecified M54.50Unclassified (2 sources)Onset: 739596-98-0935 Results Test NameValueInterpretationReference RangeFacilityBasophils Auto (Bld) [#/Vol] Ordered By: Karla Lyons on 11-07-2462Jeenjcahx (Bld) [#/Vol]0.0 10 3/uL0.0-0.1 [facility]imaBasophils/100 WBC Auto (Bld)Ordered By: Karla Lyons on 34-86-2387Cksfvwvsr/100 WBC (Bld)0.1 %Low0.2-2.0[facility]imaEosinophils/100 WBC Auto (Bld)Ordered By: Karla Lyons on 30-74-1588Sldjtkwsuwq/100 WBC (Bld)0.0 %Low0.9-7.0[facility] LimaErythrocyte distribution width Auto (RBC) [Ratio]Ordered By: Karla Lyons on 35-22-1601Bxdfzerergh distribution width (RBC) [Ratio]12.2 %11.0-15.0 [facility] LimaGlobulin Calc (S) [Mass/Vol]Ordered By: Karla Lyons on 46-07-5954Dpkbsemd (S) [Mass/Vol]4.1 g/dLScci Hospital LimaGlomerular filtration rate (GFR) estimation in non- AmericanOrdered By: Karla Lyons on 58-17-7056RSY/1.73 sq M.predicted among non-blacks MDRD (S/P/Bld) [Vol rate/Area]34 mL/min/{1.73_m2}Low>=60 mL/min/1.73m 2FCleveland Clinic Children[facility] Hospital for RehabilitationHematocrit Auto (Bld) [Volume fraction]Ordered By: Karla Lyons on 50-51-3681Ejepdwcfng (Bld) [Volume fraction]30.3 %Low36.0-48.0 [facility] LimaHemoglobin [Mass/volume] in BloodOrdered By: Karla Lyons on 53-76-3874Ukvfsuohkp (Bld) [Mass/Vol]10.1 g/dLLow12.0-16.0 [facility]imaLaboratory - Chemistry and Chemistry - challengeOrdered By: Karla Lyons on 06-69-9632Lmvezbd [Mass/Vol]1.9 g/dLLow 3.4-5.0[facility] LimaALP [Catalytic activity/Vol]99 U/L46-116 [facility]imaALT [Catalytic activity/Vol]23 U/L14-59 [facility]imaAST [Catalytic activity/Vol]14 U/CGnj15-55 [facility] LimaBilirubin [Mass/Vol]0.3 mg/dL0.2-1.0[facility] LimaCalcium [Mass/Vol]8.6 mg/dL8.5-10.1FC[facility] for RehabilitationChloride [Moles/Vol]106 mmol/I60-038BtfqcmsudScci Hospital LimaCO2 [Moles/Vol]23.0 mmol/L21.0-32.0[facility] Creatinine [Mass/Vol]1.54 mg/dLHigh0.55-1.02[facility] GFR/1.73 sq M.predicted MDRD (S/P/Bld) [Vol rate/Area]41 mL/min/{1.73_m2}Low>=60 mL/min/1.73m 2FC[facility] for RehabilitationGlucose [Mass/Vol]253 mg/dLHigh 74-106[facility] LimaMagnesium [Mass/Vol]1.7 mg/dLLow1.8-2.4 [facility]imaPotassium [Moles/Vol]5.0 mmol/L3.5-5.1FC[facility] for RehabilitationProtein [Mass/Vol]6.0 g/dLLow6.4-8.2FVan Wert County Hospitalodium [Moles/Vol]138 mmol/C465-422FbaniicfkScci Hospital LimaUrea nitrogen [Mass/Vol]56.0 mg/dLHigh7.0-18.0[facility] LimaUrea nitrogen/Creatinine [Mass ratio]36.4 mg/mgScci Hospital LimaLaboratory - Hematology and Cell countsOrdered By: Karla Lyons on 10-60-7561TJZ (Bld) [Velocity]106 mm/hHigh<=30[facility] Immature granulocytes/100 WBC (Bld)0.8 %High0.0-0.5FC[facility] for RehabilitationLeukocytes [#/volume] corrected for nucleated erythrocytes in Blood by Automated counOrdered By: Karla Lyons on 02-19-5012HII corrected for nucl RBC Auto (Bld) [#/Vol]11.8 10 3/uLHigh4.0-11.0[facility] Lymphocytes Auto (Bld) [#/Vol]Ordered By: Karla Lyons on 16-26-8599Fqhfbkaishe (Bld) [#/Vol]0.8 10 3/uLLow1.2-3.8[facility] Lymphocytes/100 WBC Auto (Bld)Ordered By: Karla Lyons on 06-30-2025 Lymphocytes/100 WBC (Bld)7.0 %Low20.5-60.0[facility] LimaMCH Auto (RBC) [Entitic mass]Ordered By: Karla Lyons on 49-12-5417WMG (RBC) [Entitic mass]29.3 pg26.7-34.0[facility] LimaMCHC Auto (RBC) [Mass/Vol]Ordered By: Karla Lyons on 52-16-8726KMQN (RBC) [Mass/Vol]33.3 g/dL 29.9-35.2FC[facility] for RehabilitationMCV Auto (RBC) [Entitic vol]Ordered By: Karla Lyons on 16-23-2391ECP (RBC) [Entitic vol]87.8 fL81.0-99.0[facility] LimaMonocytes Auto (Bld) [#/Vol]Ordered By: Karla Lyons on 78-30-6080Abyhcgpnd (Bld) [#/Vol]0.5 10 3/uL0.3-0.8[facility] LimaMonocytes/100 WBC Auto (Bld)Ordered By: Karla Lyons on 06-30-2025 Monocytes/100 WBC (Bld)3.9 %1.7-12.0[facility] LimaNeutrophils Auto (Bld) [#/Vol]Ordered By: Karla Lyons on 59-42-7404Akhxabmjevc (Bld) [#/Vol]10.4 10 3/uLHigh1.4-6.5FC[facility] for RehabilitationNeutrophils/100 WBC Auto (Bld)Ordered By: Karla Lyons on 11-34-0670Vbhwzntrevw/100 WBC (Bld) 88.2 %High43.0-75.0[facility] LimaNo Panel InformationOrdered By: Gustavo Cuevas on 41-28-8780Yqnynita Identification OnlyScci Hospital LimaNo Panel InformationOrdered By: Karla Lyons on 62-38-9458J- Reactive Protein, Hfyfzgymjzqa70.95 mg/dLHigh<=0.50[facility] LimaEosinophils # (Auto)0.0 10 3/uL0.0-0.7FC[facility] Immature Granulocyte # (Auto)0.09 10 3/uLHigh0.00-0.03[facility] LimaPlatelet mean volume Auto (Bld) [Entitic vol]Ordered By: Karla Lyons on 23-64-9757Drlxubxq mean volume (Bld) [Entitic vol]11.5 fL9.5-13.5FC[facility] for RehabilitationPlatelets Auto (Bld) [#/Vol]Ordered By: Karla Lyons on 94-66-4357Yukfogssu (Bld) [#/Vol]184 10 3/mF160-934YaqvmqywcScci Hospital LimaRBC Auto (Bld) [#/Vol]Ordered By: Karla Lyons on 33-14-8247ANY (Bld) [#/Vol]3.45 10 6/uLLow4.20-5.40[facility] Hospitalerum or plasma albumin/globulin mass ratioOrdered By: Karla Lyons on 06-30-2025 Albumin/Globulin [Mass ratio]0.5 {ratio}[facility] Hospitalerum or plasma anion gap determinationOrdered By: Karla Lyons on 74-81-9893Xuiyh gap [Moles/Vol]14.0 mmol/LFCleveland Clinic Children's Hospital for RehabilitationBasophils Auto (Bld) [#/Vol]Ordered By: Karla Lyons on 52-89-4541Ruxgvktvi (Bld) [#/Vol]0.0 10 3/uL 0.0-0.1FC[facility] for RehabilitationBasophils/100 WBC Auto (Bld)Ordered By: Karla Lyons on 17-29-1737Xfjgipurf/100 WBC (Bld)0.1 %Low0.2-2.0[facility] LimaEosinophils/100 WBC Auto (Bld)Ordered By: Karla Lyons on 12-53-7622Ufbypdablxi/100 WBC (Bld)0.1 %Low0.9-7.0[facility] LimaErythrocyte distribution width Auto (RBC) [Ratio]Ordered By: Karla Lyons on 66-32-0111Ccjemxtcflq distribution width (RBC) [Ratio]12.3 %11.0-15.0 [facility] LimaGlobulin Calc (S) [Mass/Vol]Ordered By: Karla Lyons on 63-63-0187Uwggpqub (S) [Mass/Vol]4.3 g/dLScci Hospital LimaGlomerular filtration rate (GFR) estimation in non- AmericanOrdered By: Karla Lyons on 11-16-2936NXK/1.73 sq M.predicted among non-blacks MDRD (S/P/Bld) [Vol rate/Area]31 mL/min/{1.73_m2}Low>=60 mL/min/1.73m 2FC[facility] for RehabilitationHematocrit Auto (Bld) [Volume fraction]Ordered By: Karla Lyons on 63-34-2240Ggkmaetgcq (Bld) [Volume fraction]31.1 %Low36.0-48.0 [facility] LimaHemoglobin [Mass/volume] in BloodOrdered By: Karla Lyons on 50-39-6383Fbmqjgarrg (Bld) [Mass/Vol]10.6 g/dLLow12.0-16.0 [facility] LimaLaboratory - Chemistry and Chemistry - challengeOrdered By: Karla Lyons on 60-01-0423Wqyfvyt [Mass/Vol]2.1 g/dLLow 3.4-5.0[facility] LimaALP [Catalytic activity/Vol]88 U/L46-116 [facility]imaALT [Catalytic activity/Vol]17 U/L14-59 [facility]imaAST [Catalytic activity/Vol]14 U/YVyu51-47 [facility] LimaBilirubin [Mass/Vol]0.5 mg/dL0.2-1.0[facility] LimaCalcium [Mass/Vol]8.9 mg/dL8.5-10.1FC[facility] for RehabilitationChloride [Moles/Vol]104 mmol/Z86-171SkjkafswyScci Hospital LimaCO2 [Moles/Vol]21.2 mmol/L21.0-32.0[facility] Creatinine [Mass/Vol]1.68 mg/dLHigh0.55-1.02[facility] GFR/1.73 sq M.predicted MDRD (S/P/Bld) [Vol rate/Area]37 mL/min/{1.73_m2}Low>=60 mL/min/1.73m 2FC[facility] for RehabilitationGlucose [Mass/Vol]201 mg/dLHigh 74-106[facility] LimaPotassium [Moles/Vol]5.1 mmol/L3.5-5.1 [facility]imaProtein [Mass/Vol]6.4 g/dL6.4-8.2FVan Wert County Hospitalodium [Moles/Vol]137 mmol/E355-771QhruemnmzScci Hospital LimaUrea nitrogen [Mass/Vol]62.0 mg/dLHigh7.0-18.0[facility] LimaUrea nitrogen/Creatinine [Mass ratio]36.9 mg/mgScci Hospital LimaLaboratory - Chemistry and Chemistry - challengeOrdered By: Elpidio Whipple on 09-32-4289Xekswqdrc [Mass/Vol]1.9 mg/dL1.8-2.4FC[facility] for RehabilitationLaboratory - Hematology and Cell countsOrdered By: Karla Lyons on 78-53-0434Wrhicuze granulocytes/100 WBC (Bld)0.3 %0.0-0.5FC[facility] for RehabilitationLeukocytes [#/volume] corrected for nucleated erythrocytes in Blood by Automated counOrdered By: Karla Lyons on 34-40-0839MYF corrected for nucl RBC Auto (Bld) [#/Vol]14.5 10 3/uLHigh4.0-11.0[facility] LimaLymphocytes Auto (Bld) [#/Vol]Ordered By: Karla Lyons on 06-29-2025 Lymphocytes (Bld) [#/Vol]0.7 10 3/uLLow1.2-3.8[facility] Lymphocytes/100 WBC Auto (Bld)Ordered By: Karla Lyons on 06-29-2025 Lymphocytes/100 WBC (Bld)4.9 %Low20.5-60.0[facility] Auto (RBC) [Entitic mass]Ordered By: Karla Lyons on 51-07-0112ZXF (RBC) [Entitic mass]30.1 pg26.7-34.0[facility] LimaMCHC Auto (RBC) [Mass/Vol]Ordered By: Karla Lyons on 10-72-8868FNLN (RBC) [Mass/Vol]34.1 g/dL 29.9-35.2FC[facility] for RehabilitationMCV Auto (RBC) [Entitic vol]Ordered By: Karla Lyons on 77-43-0188IPW (RBC) [Entitic vol]88.4 fL81.0-99.0[facility] LimaMonocytes Auto (Bld) [#/Vol]Ordered By: Karla Lyons on 47-55-8973Yehmgyser (Bld) [#/Vol]0.7 10 3/uL0.3-0.8[facility] LimaMonocytes/100 WBC Auto (Bld)Ordered By: Karla Lyons on 06-29-2025 Monocytes/100 WBC (Bld)4.8 %1.7-12.0[facility] LimaNeutrophils Auto (Bld) [#/Vol]Ordered By: Karla Lyons on 52-66-8682Rdtxdhgljus (Bld) [#/Vol]13.0 10 3/uLHigh1.4-6.5FC[facility] for RehabilitationNeutrophils/100 WBC Auto (Bld)Ordered By: Karla Lyons on 42-10-9465Pitexcwazus/100 WBC (Bld) 89.8 %High43.0-75.0[facility] LimaNo Panel InformationOrdered By: Karla Lyons on 96-50-4869Erbytjrxmco # (Auto)0.0 10 3/uL0.0-0.7FC[facility] for RehabilitationImmature Granulocyte # (Auto)0.05 10 3/uLHigh0.00-0.03 [facility] LimaPlatelet mean volume Auto (Bld) [Entitic vol] Ordered By: Karla Lyons on 48-15-8733Zvvrldtq mean volume (Bld) [Entitic vol] 11.4 fL9.5-13.5FC[facility] for RehabilitationPlatelets Auto (Bld) [#/Vol] Ordered By: Karla Lyons on 53-25-8628Zmrjnxtst (Bld) [#/Vol]178 10 3/cI954-246 [facility] LimaRBC Auto (Bld) [#/Vol]Ordered By: Karla Lyons on 33-89-3782LMH (Bld) [#/Vol]3.52 10 6/uLLow4.20-5.40H[facility] Hospitalerum or plasma albumin/globulin mass ratioOrdered By: Karla Lyons on 19-79-2698Gatlbxx/Globulin [Mass ratio]0.5 {ratio}[facility] Hospitalerum or plasma anion gap determinationOrdered By: Karla Lyons on 11-26-0684Mjeum gap [Moles/Vol]16.9 mmol/LFCleveland Clinic Children's Hospital for Rehabilitation Basophils Auto (Bld) [#/Vol]Ordered By: Charan Casey on 40-83-1504Hbrefgsdm (Bld) [#/Vol]0.0 10 3/uL0.0-0.1FC[facility] for RehabilitationBasophils/100 WBC Auto (Bld)Ordered By: Charan Casey on 62-01-7557Ajvwwcqab/100 WBC (Bld)0.1 %Low0.2-2.0 [facility] LimaEosinophils/100 WBC Auto (Bld)Ordered By: Charan Casey on 28-76-2265Hckcvkstyvw/100 WBC (Bld)0.1 %Low0.9-7.0[facility] LimaErythrocyte distribution width Auto (RBC) [Ratio]Ordered By: Charan Casey on 55-28-5603Tcahodzpxoo distribution width (RBC) [Ratio]12.1 %11.0-15.0 [facility] LimaGlobulin Calc (S) [Mass/Vol]Ordered By: Gustavo Cuevas on 85-34-9290Gcesirfy (S) [Mass/Vol]4.6 g/dLScci Hospital LimaGlomerular filtration rate (GFR) estimation in non- AmericanOrdered By: Gustavo Cuevas on 98-20-0836NBF/1.73 sq M.predicted among non-blacks MDRD (S/P/Bld) [Vol rate/Area]19 mL/min/{1.73_m2}Low>=60 mL/min/1.73m 2FC[facility] for RehabilitationHematocrit Auto (Bld) [Volume fraction]Ordered By: Charan Casey on 62-83-4044Urjfbgzyzl (Bld) [Volume fraction]33.7 %Low36.0-48.0[facility] LimaHemoglobin [Mass/volume] in BloodOrdered By: Charan Casey on 73-25-1179Ytfqnohpsk (Bld) [Mass/Vol]11.7 g/dLLow12.0-16.0[facility] LimaINR in Platelet poor plasma by Coagulation assayOrdered By: Gustavo Cuevas on 94-45-5625HPC Coag (PPP) [Relative time]1.02 {INR}[facility] LimaComment on above:DESIRED INR:2.0-3.0 CONDITIONS NOT LISTED BELOW2.5-3.5 FOR PROSTHETIC HEART VALVE REPLACEMENT2.5-3.5 RECURRENT THROMBOSISLaboratory - Chemistry and Chemistry - challengeOrdered By: Gustavo Cuevas on 08-89-7796Nsrcbkx [Mass/Vol]2.7 g/dLLow3.4-5.0[facility] LimaALP [Catalytic activity/Vol]90 U/A17-709SmeocrbkiScci Hospital Lima ALT [Catalytic activity/Vol]23 U/V48-17FazrhbfxaScci Hospital LimaAST [Catalytic activity/Vol]25 U/T98-31ZrjpylvsuScci Hospital LimaBilirubin [Mass/Vol]0.6 mg/dL0.2-1.0[facility] LimaCalcium [Mass/Vol]9.3 mg/dL8.5-10.1FC[facility] for RehabilitationChloride [Moles/Vol]99 mmol/L 98-107[facility] LimaCO2 [Moles/Vol]22.3 mmol/L21.0-32.0 [facility] LimaCreatinine [Mass/Vol]2.58 mg/dLHigh0.55-1.02 [facility] LimaGFR/1.73 sq M.predicted MDRD (S/P/Bld) [Vol rate/Area]23 mL/min/{1.73_m2}Low>=60 mL/min/1.73m 2FC[facility] for RehabilitationGlucose [Mass/Vol]81 mg/xM00-131WjkicbuwcScci Hospital LimaLactate [Moles/Vol]1.3 mmol/L0.4-2.0[facility] LimaPotassium [Moles/Vol]4.9 mmol/L3.5-5.1FC[facility] for RehabilitationProtein [Mass/Vol] 7.3 g/dL6.4-8.2FVan Wert County Hospitalodium [Moles/Vol]136 mmol/L 136-145[facility] LimaUrea nitrogen [Mass/Vol]72.0 mg/dLHigh 7.0-18.0[facility] LimaUrea nitrogen/Creatinine [Mass ratio] 27.9 mg/mgScci Hospital LimaLaboratory - Hematology and Cell countsOrdered By: Charan Casey on 07-82-3220XVL (Bld) [Velocity]104 mm/hHigh<=30 [facility] LimaImmature granulocytes/100 WBC (Bld)0.5 %0.0-0.5 [facility] LimaLeukocytes [#/volume] corrected for nucleated erythrocytes in Blood by Automated counOrdered By: Charan Casey on 49-86-1601PKJ corrected for nucl RBC Auto (Bld) [#/Vol]17.3 10 3/uLHigh4.0-11.0[facility] LimaLymphocytes Auto (Bld) [#/Vol]Ordered By: Charan Casey on 77-53-3958Nejmhiaioiw (Bld) [#/Vol]0.7 10 3/uLLow1.2-3.8[facility] LimaLymphocytes/100 WBC Auto (Bld)Ordered By: Charan Casey on 06-28-2025 Lymphocytes/100 WBC (Bld)4.0 %Low20.5-60.0[facility] HospitalH Auto (RBC) [Entitic mass]Ordered By: Charan Casey on 84-90-1597PSE (RBC) [Entitic mass]30.4 pg26.7-34.0[facility] LimaMCHC Auto (RBC) [Mass/Vol] Ordered By: Charan Casey on 76-85-8205IBKN (RBC) [Mass/Vol]34.7 g/dL29.9-35.2 [facility] LimaMCV Auto (RBC) [Entitic vol]Ordered By: Charan Casey on 69-50-3613QHR (RBC) [Entitic vol]87.5 fL81.0-99.0[facility] LimaMonocytes Auto (Bld) [#/Vol]Ordered By: Charan Casey on 06-28-2025 Monocytes (Bld) [#/Vol]0.7 10 3/uL0.3-0.8[facility] Monocytes/100 WBC Auto (Bld)Ordered By: Charan Casey on 47-88-7128Aarudusee/100 WBC (Bld)4.0 %1.7-12.0[facility] LimaNeutrophils Auto (Bld) [#/Vol]Ordered By: Charan Casey on 29-35-8371Muitvhtwboq (Bld) [#/Vol]15.8 10 3/uL High1.4-6.5FC[facility] for RehabilitationNeutrophils/100 WBC Auto (Bld) Ordered By: Charan Casey on 51-21-3711Tnegiaknvvi/100 WBC (Bld)91.3 %High43.0-75.0 [facility] [place]imaNo Panel InformationOrdered By: Charan Casey on 84-64-5910U-Reactive Protein, Avnhcoqnqcvu53.00 mg/dLHigh<=0.50[facility] LimaEosinophils # (Auto)0.0 10 3/uL0.0-0.7FC[facility] for RehabilitationImmature Granulocyte # (Auto)0.09 10 3/uLHigh0.00-0.03[facility] [place]imaNo Panel InformationOrdered By: Gustavo Cuevas on 06-28-2025 Venous Blood Partial Pressure CO241.7 mm[Hg]40.0-52.0[facility] [facility] LimaVenous Blood pH7.3547.330-7.430S[facility] Hospital LimaPlatelet mean volume Auto (Bld) [Entitic vol]Ordered By: Charan Casey on 51-91-9711Qcuimbry mean volume (Bld) [Entitic vol]11.8 fL9.5-13.5FCleveland Clinic [facility] Platelets Auto (Bld) [#/Vol]Ordered By: Charan Casey on 43-64-6022Fmmznyfkl (Bld) [#/Vol]178 10 3/nU118-067FuipziltqScci Hospital LimaProthrombin time (PT) Ordered By: Gustavo Cuevas on 94-86-2463KO Coag (PPP) [Time]10.8 s9.0-11.6FCleveland Clinic Children's Hospital for RehabilitationRBC Auto (Bld) [#/Vol]Ordered By: Charan Casey on 81-08-1681VYQ (Bld) [#/Vol]3.85 10 6/uLLow4.20-5.40H[facility] Hospitalerum or plasma albumin/globulin mass ratioOrdered By: Gustavo Cuevas on 09-43-5162Nqpihuj/Globulin [Mass ratio]0.6 {ratio}[facility] Hospitalerum or plasma anion gap determinationOrdered By: Gustavo uCevas on 01-01-4279Kcduc gap [Moles/Vol]19.6 mmol/LFCleveland Clinic Children's Hospital for RehabilitationX-ray reportOrdered By: Néstor Mays on 05-30-9968Lsjyh reportTRIHE[facility] [place] [address] XRay Report Signed Patient: Rita Cobb MR#: [id number] : 1960 Acct:[id number] Age/Sex: 64 / F ADM Date: 5 [facility] Attending Dr: Acosta Castro DPM MS Copies [...] Mays M.D. 06/05/2025 5:41 PM Dictation Location: [place] [address] Transcribed By: [facility] 06/05/251740 Dictated By: Néstor Mays MD 06/05/251734 Signed By: 06/05/251740 [facility] Work Phone: XR foot BI 3Von 08-89-4259UC foot BI 3VTR[facility] [place] [address] [place] [address] XRay Report Signed Patient: Rita Cobb MR#: [id number] : 1960 Acct:[id number] Age/Sex: 64 / F ADM Date: 06/05/25 Loc: XDS Room: Type: [facility] Attending Dr: Acosta Castro DPM MS Copies [...] Mays M.D. 06/05/2025 5:41 PM Dictation Location: [place] [address] Transcribed By: [facility] 06/05/25 1741 Dictated By: Néstor Mays MD 06/05/251734 Signed By: 06/05/25 174[facility] Physician IjwimWrJ1i (Bld) [Mass fraction]on 25-13-4547Dxahlozgvweysj and review of laboratory resultsAbAtrium HealthLaboratory - Hematology and Cell countson 13-36-5494KoW7x (Bld) [Mass fraction]8.1 %[facility] KirkwoodMR shoulder RT wo conon 40-08-8645NE shoulder RT wo [facility] [place] [address] [place] [address] MRI Report Signed Patient: Rita Cobb MR#: [id number] : 1960 Acct:[id number] Age/Sex: 64 / F ADM Date: 01/23/25 Loc: [facility] Room: Type: [facility] Attending Dr: Nader Curry DO [...] Timothy Levi M.D.01/26/2025 9:38 AM Dictation Location: [place] [address] Transcribed By: [facility] 01/26/25 0938 Dictated By: Timothy Levi II, MD 01/26/25 0902 Signed By: 01/26/25 0938[facility] Physician GroupInfluenza virus B Ag [Presence] in Upper respiratory specimen by Rapid immunoassayon 05-16-7316NBISE Ag IA.rapid Ql (Nph)Influenza virus B Ag [Presence] in Upper respiratory specimen by Rapid immunoassayScci Hospital LimaNo Panel Informationon 12-09-2024 Influenza Type A (Rapid)NegativeScci Hospital LimaPO SARS CoV-2 AntigenNegativeScci Hospital LimaNo Panel InformationOrdered By: Charan Casey on 32-70-7565DYD (POC)[facility] LimaRSV (POC) [facility] LimaX-ray reportOrdered By: Néstor Mays on 42-94-3670Kaexc reportTRIHEALTH [facility] Main [address] [address] XRay Report Signed Patient: Rita Cobb MR#: [id number] : 1960 Acct:[id number] Age/Sex: 64 / F ADM Date: 5 [...] Néstor Mays M.D.12/08/2024 3:59 PM Dictation Location: [place] [address] Transcribed By: FRANKY 12/08/24 1559 Dictated By: Néstor Mays MD 12/08/24 1524 Signed By: 12/08/24 1559 [facility] Work Phone: XR chest 2V*on 66-11-7263QM chest 2V*[facility] Main [address] [address] XRay Report Signed Patient: Rita Cobb MR#: [id number] : 1960 Acct:[id number] Age/Sex: 64 / F ADM Date: 12/08/24 [facility] Type[facility] Attending Dr: [...] Néstor Mays M.D.12/08/2024 3:59 PM Dictation Location: [place] [address] Transcribed By: [facility] 12/08/24 1559 Dictated By: Néstor Mays MD 12/08/24 1524 Signed By: 12/08/24 1559[facility] Physician GroupXR shoulder RT min 2V*on 39-32-8096CI shoulder RT min 2V*[facility] [address] [place] [address] XRay Report Signed Patient: Rita Cobb MR#: [id number] : 1960 Acct:[id number] Age/Sex: 63 / F ADM Date: 10/25/24 [place]: [facility] Room: Type: [facility] Attending Dr: Nader Curry DO Copies to: [...] Ibis Crisostomo M.D.10/25/2024 9:11 AM Dictation Location: [place] [address] Transcribed By: [facility] 10/25/24 09 Dictated By: Ibis Crisostomo MD 10/25/24 0908 Signed By: 10/25/24 0911[facility] Physician UycguHdC8y (Bld) [Mass fraction]on 58-69-1545Lbrbfaofxwtzql and review of laboratory resultsNoSSM Health St. Mary's HospitalLaboratory - Hematology and Cell countson 96-89-7809XnG7i (Bld) [Mass fraction]7.6 %[facility] KirkwoodMM screening mammo BI w/CADon 43-82-7768PM screening mammo BI w/CADTR[facility] [place] [address] [place] [address] Mammography Report Signed Patient: Rita Cobb MR#: [id number] : 1960 Acct:[id number] Age/Sex: 63 / F ADM Date: 09/07/24 Loc: [place] Room: Type: [facility] Attending Dr: Referral Self Copies to: Charan [...] Brown Jr. DDerekODerek09/07/2024 9:04 AM Dictation Location: [facility] Transcribed By: FRANKY 09/07/24903 Dictated By: Sudhir Brown Jr, DO 09/07/24899 Signed By: 09/07/24903[facility] Physician GroupAlbumin [Mass/volume] in Serum or Plasma by Bromocresol green (BCG) dye binding methoOrdered By: Elpidio Whipple on 98-80-7595Xmnomlt BCG dye [Mass/Vol]4.3 g/dL3.5-5.7FCleveland Clinic Children[facility] Hospital for RehabilitationAutomated erythrocytes count in urine sediment (number/area)Ordered By: Elpidio Whipple on 36-57-7412POO Auto (Urine sed) [#/Area]1-2 [HPF]0-4FCleveland Clinic Children[facility] Hospital for RehabilitationAutomated leukocytes count in urine sediment (number/area)Ordered By: Elpidio Whipple on 55-62-8866SNO Auto (Urine sed) [#/Area] 5-9 [HPF]0-4FCleveland Clinic Children's Hospital for RehabilitationBilirubin Test strip Ql (U)Ordered By: Elpidio Whipple on 94-15-7244Tfbzdibtf Ql (U)NegativeNegativeScci Hospital LimaCalcium [Mass/volume] in Serum or PlasmaOrdered By: Elpidio Whipple on 56-14-0043Psxqfuh [Mass/Vol]9.8 mg/dL8.6-10.3FC[facility] Carbon dioxide, total [Moles/volume] in Serum or PlasmaOrdered By: Elpidio Whipple on 94-00-9981OV5 [Moles/Vol]30.4 mmol/L21.0-31.0S[facility] Hospital LimaChloride [Moles/volume] in Serum or PlasmaOrdered By: Elpidio Whipple on 87-17-1366Orbkkbpu [Moles/Vol]103 mmol/J01-665ZcwzogjeaScci Hospital Lima Color Auto (U)Ordered By: Elpidio Whipple on 76-22-9095Mrlky (U)Dark yellowYellow [facility] LimaCreatinine [Mass/volume] in Serum or Plasma Ordered By: Elpidio Whipple on 17-46-0207Aboxjfbbqi [Mass/Vol]1.19 mg/dL0.60-1.20 [facility] LimaCreatinine [Mass/volume] in UrineOrdered By: Elpidio Whipple on 94-55-9632Fusiylsehg (U) [Mass/Vol]101.0 mg/dLScci Hospital LimaComment on above:No reference range establishedErythrocyte distribution width Auto (RBC) [Ratio]Ordered By: Elpidio Whipple on 02-29-2024 Erythrocyte distribution width (RBC) [Ratio]12.9 %11.9-15.3FCleveland Clinic [facility] Hospital for RehabilitationGlucose [Mass/volume] in Serum or PlasmaOrdered By: Elpidio Whipple on 50-83-5475Pbxjkbi [Mass/Vol]164 mg/kB96-120GgmqiydqgScci Hospital [place]ima Comment on above:ADA recommended reference rangeRandom Glucose Reference Range is dependent on time and content of last meal. Glucose of more than 200 mg/dL in a nonstressed, ambulatory subject supports the diagnosisof Diabetes Mellitus. Hematocrit Auto (Bld) [Volume fraction]Ordered By: Elpidio Whipple on 02-29-2024 Hematocrit (Bld) [Volume fraction]39.7 %34.0-46.4FCleveland Clinic Children[facility] Hospital for RehabilitationHemoglobin [Mass/volume] in BloodOrdered By: Elpidio Whipple on 02-29-2024 Hemoglobin (Bld) [Mass/Vol]13.4 g/dL11.8-15.4FCleveland [facility] Rehabilitation Ketones Auto test strip (U) [Mass/Vol]Ordered By: Elpidio Whipple on 02-29-2024 Ketones (U) [Mass/Vol]NegativeNegativeScci Hospital Lima Laboratory - UrinalysisOrdered By: Elpidio Whipple on 45-94-3476Fqzzace casts LM Ql (Urine sed)0-8 [LPF]0-8[facility] Hospital LimaLeukocytes [#/volume] corrected for nucleated erythrocytes in Blood by Automated counOrdered By: Elpidio Whipple on 46-28-0957BSL corrected for nucl RBC Auto (Bld) [#/Vol]4.5 10*3/uL 3.8-11.6FCleveland Clinic Children[facility] Hospital for RehabilitationMCH Auto (RBC) [Entitic mass]Ordered By: Elpidio Whipple on 11-37-9209JRC (RBC) [Entitic mass]29.1 pg24.7-34.3FCleveland Clinic Children[facility] Hospital for RehabilitationMCHC Auto (RBC) [Mass/Vol]Ordered By: Elpidio Whipple on 83-01-8094HLFH (RBC) [Mass/Vol]33.8 g/dL32.0-35.0[facility] Hospital LimaMCV Auto (RBC) [Entitic vol]Ordered By: Elpidio Whipple on 06-63-8435LFM (RBC) [Entitic vol]86.2 zZ90-670KkyxegtmcScci Hospital LimaMagnesium [Mass/volume] in Serum or PlasmaOrdered By: Elpidio Whipple on 92-06-4940Sefkhumjf [Mass/Vol]1.6 mg/dL1.9-2.7FCleveland Clinic Children's Hospital for RehabilitationNitrite Test strip Ql (U)Ordered By: Elpidio Whipple on 54-41-9139Xkgjrbh Ql (U)NegativeNegativeScci Hospital LimaNo Panel InformationOrdered By: Elpidio Whipple on 49-77-6749Aiwscchtg GFR (CKD-EPI)51.377 mL/MinScci Hospital [facility] Pharmacy Creatinine Clearance (ChemN/[facility] Parathyrin.intact [Mass/volume] in Serum or PlasmaOrdered By: Elpidio Whipple on 25-76-1772Uorccgvabv.intact [Mass/Vol]53.1 pg/rS95-95AditolyrkScci Hospital LimaPhosphate [Mass/volume] in Serum or PlasmaOrdered By: Elpidio Whipple on 37-26-2244Fkjcjsdoq [Mass/Vol]2.8 mg/dL2.5-4.5FC[facility] Platelet mean volume Auto (Bld) [Entitic vol]Ordered By: Elpidio Whipple on 58-67-8700Nnlcajzi mean volume (Bld) [Entitic vol]9.5 fL6.3-10.7FC[facility] Clinic Children[facility] Hospital for RehabilitationPlatelets Auto (Bld) [#/Vol]Ordered By: Elpidio Whipple on 21-76-7785Kqbitmyem (Bld) [#/Vol]174 10*3/lW031-844YvpdvlzhtScci Hospital LimaPotassium [Moles/volume] in Serum or PlasmaOrdered By: Elpidio Whipple on 75-56-8607Zbrtoyami [Moles/Vol]4.6 mmol/L3.5-5.1FC[facility] for RehabilitationProtein Auto test strip (U) [Mass/Vol]Ordered By: Elpidio Whipple on 19-08-4106Evrjcyr (U) [Mass/Vol]30 mg/dLNegativeScci Hospital LimaProtein [Mass/volume] in UrineOrdered By: Elpidio Whipple on 03-26-0245Ywntsey (U) [Mass/Vol]43 mg/dL0-9S[facility] LimaRBC Auto (Bld) [#/Vol]Ordered By: Elpidio Whipple on 51-63-4959FHC (Bld) [#/Vol]4.61 10*6/uL 3.60-5.00[facility] Hospitalerum or plasma anion gap determinationOrdered By: Elpidio Whipple on 88-76-6018Qeqeg gap [Moles/Vol]11.2 mmol/L6.0-15.0[facility] Hospitalodium [Moles/volume] in Serum or PlasmaOrdered By: Elpidio Whipple on 85-89-8765Jnuwqx [Moles/Vol]140 mmol/J022-862 [facility] Hospitalpecific gravity Auto test strip (U) [Rel density]Ordered By: Elpidio Whipple on 12-32-9017Vlblwxkf gravity (U) [Rel density] 1.0191.001-1.030H[facility] Community Hospitalquamous epithelial cells detection in urine sediment by light microscopyOrdered By: Elpidio Whipple on 59-61-8152Juyqhogdah cells.squamous LM Ql (Urine sed)10-19 [HPF]0-2FCleveland Clinic Children's Hospital for RehabilitationUrate [Mass/volume] in Serum or PlasmaOrdered By: Elpidio Whipple on 60-30-4243Rrkhu [Mass/Vol]7.1 mg/dL2.3-6.6FCleveland Clinic Children[facility] Hospital for RehabilitationUrea nitrogen [Mass/volume] in Serum or PlasmaOrdered By: Elpidio Whipple on 85-81-0239Qmkj nitrogen [Mass/Vol]29 mg/dL7-25[facility] Urine bacteria detection by automated methodOrdered By: Elpidio Whipple on 79-03-2097Kisfomzs Auto Ql (U)None seenNone SeenScci Hospital LimaUrine clarity by refractometry automatedOrdered By: Elpidio Whipple on 21-40-4446Sjkqxdj Refractometry automated (U)ClearClearFCleveland Clinic Children's Hospital for RehabilitationUrine culture routineOrdered By: Elpidio Whipple on 78-47-1481Qefsxuyr identified Cx Nom (U)2 DaysScci Hospital LimaUrine glucose measurement by automated test strip (mass/volume)Ordered By: Elpidio Whipple on 85-19-5540Tueshuc Auto test strip (U) [Mass/Vol]Normal mg/dLNoUniversity Hospitals Beachwood Medical CenterUrine hemoglobin detection by automated test stripOrdered By: Elpidio Whipple on 97-63-7839Amdoyoiazf Auto test strip Ql (U)NegativeNegative [facility] Hospital LimaUrine leukocyte esterase detection by automated test stripOrdered By: Elpidio Whipple on 98-79-2652Bimaizqlk esterase Auto test strip Ql (U)2+NegativeScci Hospital LimaUrine protein/creatinine ratioOrdered By: Elpidio Whipple on 08-72-0061Fbcqvxx/Creatinine (U) [Ratio]426 mg/g{Cre}0-200S[facility] Hospital LimaUrobilinogen Auto test strip (U) [Mass/Vol]Ordered By: Elpidio Whipple on 52-87-9807Zyrpurvybgao (U) [Mass/Vol]Normal mg/dLNoUniversity Hospitals Beachwood Medical CenterVitamin D+Metabolites [Mass/volume] in Serum or PlasmaOrdered By: Elpidio Whipple on 28-96-0865Gfgzefv D+Metabolites [Mass/Vol]48.0 ng/oF49-677ZrvcnytjjScci Hospital LimaComment on above: VITAMIN D STATUS 25(OH)VITAMIN D RANGE (ng/mL) Deficient <20 Insufficient 20 to <38Oyjkuloquv36 to 100Reference: Nayeli MF,Hannah NC, Jose GILBERT, et al. Evaluation,treatment, and prevention of vitamin D deficiency; an Endocrine Society clinical practice guideline. JCEM. 2010; 96(7):1911-30.pH Auto test strip (U)Ordered By: Elpidio Whipple on 51-51-8236hU (U)5.5 [pH]5.0-9.0[facility] Hospital LimaRSVon 67-95-3264RSJ Ag IA Ql (Unsp spec)NegativeNoeastern missouri state hospital [employer] Other Alanine aminotransferase [Enzymatic activity/volume] in Serum or PlasmaOrdered By: Charan Casey on 26-53-2532WVA [Catalytic activity/Vol]16 U/L7-52[facility] LimaAlbumin [Mass/volume] in Serum or Plasma by Bromocresol green (BCG) dye binding methoOrdered By: Charan Casey on 38-24-2178Msjhewl BCG dye [Mass/Vol]4.2 g/dL3.5-5.7FCleveland Clinic Children[facility] Hospital for RehabilitationAlkaline phosphatase [Enzymatic activity/volume] in Serum or PlasmaOrdered By: Charan Casey on 05-96-2790WPY [Catalytic activity/Vol]65 U/L 34-104S[facility] Hospital LimaAspartate aminotransferase [Enzymatic activity/volume] in Serum or PlasmaOrdered By: Charan Casey on 03-94-5178SFM [Catalytic activity/Vol]16 U/X87-08VjrcwqtduScci Hospital [place]ima Bilirubin.total [Mass/volume] in Serum or PlasmaOrdered By: Charan Casey on 37-14-5012Vxorhwigg [Mass/Vol]0.6 mg/dL0.3-1.0[facility] Calcium [Mass/volume] in Serum or PlasmaOrdered By: Charan Casey on 11-26-2023 Calcium [Mass/Vol]9.8 mg/dL8.6-10.3FC[facility] Hospital for RehabilitationCarbon dioxide, total [Moles/volume] in Serum or PlasmaOrdered By: Charan Casey on 48-84-5430LF7 [Moles/Vol]34.6 mmol/L21.0-31.0[facility] Chloride [Moles/volume] in Serum or PlasmaOrdered By: Charan Casey on 11-26-2023 Chloride [Moles/Vol]101 mmol/X40-163XwjqonjscScci Hospital LimaCholesterol [Mass/volume] in Serum or PlasmaOrdered By: Charan Casey on 97-24-2257Zrtnolsteuo [Mass/Vol]140 mg/zA775-909UjlqxtklwScci Hospital LimaComment on above: Chol less than 200 mg/dl low riskChol 201-239 mg/dl borderline riskChol 240 mg/dl and greater high riskCholesterol in LDL Calc [Mass/Vol]Ordered By: Charan Casey on 65-54-8748Mgkzxsnxaoy in LDL [Mass/Vol]56 mg/dL0-100S[facility] Hospital LimaComment on above:LDL ATP III CLASSIFICATIONLDL less than 100 mg/dL OptimalLDL 100-129 mg/dL Near or above iorxrjzPFS280-148 mg/dL Borderline highLDL 160-189 mg/dL HighLDL greater than 189 mg/dL Very highCholesterol in VLDL Calc [Mass/Vol]Ordered By: Charan Casey on 90-40-2453Huuareicifn in VLDL [Mass/Vol]45 mg/dLScci Hospital LimaCreatinine [Mass/volume] in Serum or PlasmaOrdered By: Charan Casey on 30-37-4808Pyvgjwuxgc [Mass/Vol]1.25 mg/dL0.60-1.20[facility] LimaGlobulin Calc (S) [Mass/Vol] Ordered By: Charan Casey on 96-43-3971Vzcpdvdh (S) [Mass/Vol]2.6 g/dLScci Hospital LimaGlucose [Mass/volume] in Serum or PlasmaOrdered By: Charan Casey on 07-19-1755Fkzjsti [Mass/Vol]122 mg/eG39-720EbgzsrxjoScci Hospital LimaComment on above:ADA recommended reference rangeRandom Glucose Reference Range is dependent on time and content of last meal. Glucose of more than 200 mg/dL in a nonstressed, ambulatory subject supports the diagnosisof Diabetes Mellitus.No Panel InformationOrdered By: Charan Casey on 65-11-1644Wvjuwcrpw GFR (CKD-EPI)48.432 mL/MinScci Hospital LimaPharmacy Creatinine Clearance (ChemN/AFirelands Kettering Health TroyPotassium [Moles/volume] in Serum or PlasmaOrdered By: Charan Casey on 46-38-6360Wzeeucjtd [Moles/Vol]4.6 mmol/L3.5-5.1FC[facility] for RehabilitationProtein [Mass/volume] in Serum or PlasmaOrdered By: Charan Casey on 94-32-9323Yecivho [Mass/Vol]6.8 g/dL6.4-8.9 [facility] Hospitalerum or plasma albumin/globulin mass ratio Ordered By: Charan Casey on 13-91-7341Eopawut/Globulin [Mass ratio]1.6 {ratio} [facility] Hospitalerum or plasma anion gap determinationOrdered By: Charan Casey on 03-21-9052Jijja gap [Moles/Vol]9.0 mmol/L6.0-15.0[facility] Hospitalerum or plasma high density lipoprotein (HDL) cholesterol measurementOrdered By: Charan Casey on 84-88-4187Uutotevysvi in HDL [Mass/Vol]39 mg/cY58-94DjqqbcqsiScci Hospital LimaComment on above:HDL CHOL ATP-III CLASSIFICATION Cardiovascular RiskHDL > or equal to 60 mg/dL LOWHDL < 40 mg/dL HIGHSerum or plasma total cholesterol/high density lipoprotein (HDL) cholesterol mass ratOrdered By: Charan Casey on 11-26-2023 Cholesterol.total/Cholesterol in HDL [Mass ratio]3.6 {ratio}<5.0H[facility] Hospitalodium [Moles/volume] in Serum or PlasmaOrdered By: Charan Casey on 82-08-1777Toaniw [Moles/Vol]140 mmol/J969-044AxvxyflbmScci Hospital LimaTriglyceride [Mass/volume] in Serum or PlasmaOrdered By: Charan Casey on 14-74-3383Hgcsjcsceqfs [Mass/Vol]227 mg/dL0-149[facility] Comment on above:TRIG ATP III CLASSIFICATIONTRIG less than 150 mg/dL NormalTRIG 150-199 mg/dL Borderline highTRIG 200-500 mg/dL High TRIG greater than 500 mg/dL Very highStandard traceable to the Center for Disease Conrtrol and Prevention (CDC) test method.Urea nitrogen [Mass/volume] in Serum or PlasmaOrdered By: Charan Casey on 13-91-7123Whjm nitrogen [Mass/Vol]32 mg/dL7S[facility] Hospital LimaGlucose Glucometer (BldC) [Mass/Vol]Ordered By: Yasmeen Treadwell on 35-33-0057Fykivyh [Mass/Vol]150 mg/dLScci Hospital LimaComment on above:Random Glucose Reference Range is dependent on time and content of last meal. Glucose of more than 200 mg/dL in a nonstressed, ambulatory subject supports the diagnosis of Diabetes Mellitus.Albumin [Mass/volume] in Serum or Plasma by Bromocresol green (BCG) dye binding methoOrdered By: Elpidio Whipple on 01-99-0950Kqourpn BCG dye [Mass/Vol]4.5 g/dL3.5-5.7FCleveland Clinic [facility] Hospital for RehabilitationAutomated erythrocytes count in urine sediment (number/area)Ordered By: Elpidio Whipple on 12-47-9725NJE Auto (Urine sed) [#/Area]None seen [HPF]0-4 [facility] LimaAutomated leukocytes count in urine sediment (number/area)Ordered By: Elpidio Whipple on 07-00-5633QQS Auto (Urine sed) [#/Area] 1-2 [HPF]0-4FCleveland Clinic Children[facility] Hospital for RehabilitationBilirubin Test strip Ql (U)Ordered By: Elpidio Whipple on 27-12-7215Knobbwanz Ql (U)NegativeNegativeScci Hospital LimaCalcium [Mass/volume] in Serum or PlasmaOrdered By: Elpidio Whipple on 33-30-3679Zmbkvcq [Mass/Vol]9.5 mg/dL8.6-10.3FC[facility] Carbon dioxide, total [Moles/volume] in Serum or PlasmaOrdered By: Elpidio Whipple on 93-40-3616AW9 [Moles/Vol]29.7 mmol/L21.0-31.0[facility] LimaChloride [Moles/volume] in Serum or PlasmaOrdered By: Elpidio Whipple on 51-17-0209Jeeotpvz [Moles/Vol]106 mmol/N06-729AygcezamsScci Hospital [place]ima Color Auto (U)Ordered By: Elpidio Whipple on 41-31-1764Whqqc (U)Dark yellowYellow [facility] LimaCreatinine [Mass/volume] in Serum or Plasma Ordered By: Elpidio Whipple on 93-84-4730Qjrazesiuv [Mass/Vol]1.29 mg/dL0.60-1.20 [facility] LimaCreatinine [Mass/volume] in UrineOrdered By: Elpidio Whipple on 67-73-7674Emfaqhbcwa (U) [Mass/Vol]87.0 mg/dL11.0-20.0[facility] Hospital LimaErythrocyte distribution width Auto (RBC) [Ratio]Ordered By: Elpidio Whipple on 89-78-0780Zshkekzjwil distribution width (RBC) [Ratio]13.5 % 11.9-15.3FCleveland Clinic [facility] Hospital for RehabilitationGlucose [Mass/volume] in Serum or PlasmaOrdered By: Elpidio Whipple on 22-69-1609Doulnkd [Mass/Vol]97 mg/uG72-113 [facility] LimaComment on above:ADA recommended reference rangeRandom Glucose Reference Range is dependent on time and content of last meal. Glucose of more than 200 mg/dL in a nonstressed, ambulatory subject supports the diagnosisof Diabetes Mellitus.Hematocrit Auto (Bld) [Volume fraction]Ordered By: Elpidio Whipple on 40-34-7991Rqxqqgdsxu (Bld) [Volume fraction] 42.7 %34.0-46.4FCleveland Clinic Children[facility] Hospital for RehabilitationHemoglobin [Mass/volume] in BloodOrdered By: Elpidio Whipple on 61-39-7613Mqqltztjyq (Bld) [Mass/Vol]14.3 g/dL 11.8-15.4FCleveland Clinic Children[facility] Hospital for RehabilitationKetones Auto test strip (U) [Mass/Vol] Ordered By: Elpidio Whipple on 89-72-5454Mweurnu (U) [Mass/Vol]NegativeNegative [facility] LimaLaboratory - UrinalysisOrdered By: Elpidio Whipple on 53-23-2770Oxbqaez casts LM Ql (Urine sed)0-8 [LPF]0-8[facility] LimaLeukocytes [#/volume] corrected for nucleated erythrocytes in Blood by Automated counOrdered By: Elpidio Whipple on 49-40-1948RZL corrected for nucl RBC Auto (Bld) [#/Vol]7.7 10*3/uL3.8-11.6FC[facility] MCH Auto (RBC) [Entitic mass]Ordered By: Elpidio Whipple on 47-45-7535KPY (RBC) [Entitic mass]29.1 pg24.7-34.3FC[facility] Hospital for RehabilitationMCHC Auto (RBC) [Mass/Vol]Ordered By: Elpidio Whipple on 22-37-9253URJD (RBC) [Mass/Vol]33.6 g/dL 32.0-35.0[facility] LimaMCV Auto (RBC) [Entitic vol]Ordered By: Elpidio Whipple on 30-75-3530YWP (RBC) [Entitic vol]86.5 oF25-053UyfsjdtatScci Hospital LimaMagnesium [Mass/volume] in Serum or PlasmaOrdered By: Elpidio Whipple on 01-96-2112Gakqkgeqv [Mass/Vol]1.9 mg/dL1.9-2.7FCleveland Clinic Children[facility] Hospital for RehabilitationNitrite Test strip Ql (U)Ordered By: Elpidio Whipple on 09-14-2023 Nitrite Ql (U)NegativeNegativeScci Hospital LimaNo Panel InformationOrdered By: Elpidio Whipple on 25-46-9080Huhzmhjzu GFR (CKD-EPI)46.926 mL/MinScci Hospital LimaPharmacy Creatinine Clearance (ChemN/A [facility] LimaParathyrin.intact [Mass/volume] in Serum or PlasmaOrdered By: Elpidio Whipple on 20-21-1333Dszndalxou.intact [Mass/Vol]133.6 pg/oR43-67MbvjhcoagScci Hospital LimaPhosphate [Mass/volume] in Serum or PlasmaOrdered By: Elpidio Whipple on 73-51-8416Usmunvrfq [Mass/Vol]3.4 mg/dL3.7-7.2 [facility] LimaPlatelet mean volume Auto (Bld) [Entitic vol] Ordered By: Elpidio Whipple on 56-42-9023Yhiozfsa mean volume (Bld) [Entitic vol] 10.0 fL6.3-10.7FCleveland Clinic Children's Hospital for RehabilitationPlatelets Auto (Bld) [#/Vol] Ordered By: Elpidio Zarater on 65-90-5471Ovukslohm (Bld) [#/Vol]193 10*3/pW183-512 [facility]imaPotassium [Moles/volume] in Serum or Plasma Ordered By: Elpidio Sole on 13-39-1044Crhrujdsu [Moles/Vol]4.7 mmol/L3.5-5.1 [facility]imaProtein Auto test strip (U) [Mass/Vol]Ordered By: Elpidio Sole on 65-25-9242Bgvwvmn (U) [Mass/Vol]NegativeNegativeScci Hospital LimaProtein [Mass/volume] in UrineOrdered By: Elpidio Sole on 95-75-7003Tbvqndy (U) [Mass/Vol]12 mg/dL0-9[facility] LimaRBC Auto (Bld) [#/Vol]Ordered By: Elpidio Silvadir on 92-35-7415TEL (Bld) [#/Vol]4.93 10*6/uL3.60-5.00[facility] Hospitalerum or plasma anion gap determinationOrdered By: Elpidio Sole on 99-36-8905Xslsp gap [Moles/Vol]11.0 mmol/L6.0-15.0[facility] Hospitalodium [Moles/volume] in Serum or PlasmaOrdered By: Elpidio Sole on 89-38-1970Fogheh [Moles/Vol]142 mmol/J048-688 [facility] Hospitalpecific gravity Auto test strip (U) [Rel density]Ordered By: Elpidio Sole on 73-73-8943Skrcsscu gravity (U) [Rel density] 1.0201.001-1.030[facility] Hospitalquamous epithelial cells detection in urine sediment by light microscopyOrdered By: Elpidio Zarater on 44-38-8914Tahnsgegcm cells.squamous LM Ql (Urine sed)3-4 [HPF]0-2FCleveland Clinic Children's Hospital for RehabilitationUrate [Mass/volume] in Serum or PlasmaOrdered By: Elpidio Sole on 89-95-2162Nvscr [Mass/Vol]6.2 mg/dL2.3-6.6FCleveland Clinic Children's Hospital for RehabilitationUrea nitrogen [Mass/volume] in Serum or PlasmaOrdered By: Elpidio Whipple on 30-94-1449Tard nitrogen [Mass/Vol]46 mg/dL7-25[facility] Urine bacteria detection by automated methodOrdered By: Elpidio Whipple on 94-91-6600Wnqcudod Auto Ql (U)None seenNone SeenScci Hospital LimaUrine clarity by refractometry automatedOrdered By: Elpidio Whipple on 89-49-2336Pewwlnv Refractometry automated (U)ClearClearFCleveland Clinic Children's Hospital for RehabilitationUrine glucose measurement by automated test strip (mass/volume) Ordered By: Elpidio Whipple on 70-73-3392Zgmaewi Auto test strip (U) [Mass/Vol] Normal mg/dLBrown Memorial HospitalUrine hemoglobin detection by automated test stripOrdered By: Elpidio Whipple on 45-75-7784Wehtebozlr Auto test strip Ql (U)NegativeNegativeScci Hospital LimaUrine leukocyte esterase detection by automated test stripOrdered By: Elpidio Whipple on 09-14-2023 Leukocyte esterase Auto test strip Ql (U)1+NegativeScci Hospital LimaUrine protein/creatinine ratioOrdered By: Elpidio Sole on 09-14-2023 Protein/Creatinine (U) [Ratio]138 mg/g{Cre}0-200[facility] LimaUrobilinogen Auto test strip (U) [Mass/Vol]Ordered By: Elpidio Whipple on 28-29-1416Ydfhtatpgwpn (U) [Mass/Vol]Normal mg/dLNoUniversity Hospitals Beachwood Medical CenterVitamin D+Metabolites [Mass/volume] in Serum or PlasmaOrdered By: Elpidio Whipple on 02-84-7396Jgprxxs D+Metabolites [Mass/Vol]50.6 ng/gA86-771 [facility] LimaComment on above:VITAMIN D STATUS 25(OH)VITAMIN D RANGE (ng/mL) Deficient <20 Insufficient 20 to <09Bizcixmlsx40 to 100Reference: Nayeli MF,Hannah NC, Jose GILBERT, et al. Evaluation,treatment, and prevention of vitamin D deficiency; an Endocrine Society clinical practice guideline. JCEM. 2011 Jorge; 96(7):1911-30.pH Auto test strip (U)Ordered By: Elpidio Whipple on 32-89-2408aN (U)5.5 [pH]5.0-9.0[facility] LimaUrine 10 SGon 42-73-7999Kzuaoye DL <= 20 mg/L (U) [Mass/Vol]NegativeO[facility] Other pH (U)6.0 [pH][place] Other urine 10 SGNegativeNoeastern [facility] Other urine 10 SG1.010Noeastern missouri state hospital [facility] Other urine 10 SG0.2Nsaint joseph hospital [facility] Other Height or Weight NOT Doneon 29-45-0247Avsvg depression screening assessmentNoMason [facility] Eviti DO Work Phone: Fall risk assessmenta) No falls within the last year [facility] Eviti DO Work Phone: Tobacco use status CPHSb) NoMRegional [facility] [employer] DO Work Phone: Office Visit (Cardiology)on 69-43-7598Kyqijf-up visit Diagnoses/Problems Assessed CAD (coronary artery disease) [...] any trouble since her angioplasty. She has Zruyadd-Sbuws-Tekco disease and had recent surgery on the [...] machine patient has been compliant with it. 7?Nbrzdtg-Kcmdn-Dqvbl joint in the ankles status post recent [...] TABLET DAILY. Vitamin D (Ergocalciferol) 1.25 MG (48481 UT) Oral CapsuleTake 1 tablet twice weekly Allergies Medication Erythromycin Base TABS Adverse Reaction; Gatrointestinal upset; Updated By: Adrianna Emanuel; (more content not included)...NormalUH Adventhealth DurandPOINT OF CARE GLUCOSEon 04-13-2023 Glucose [Mass/Vol]215 mg/dLCritically kobr17-138Tzo City HospitalComment on above:Performed By: #### POCGLUC ####[facility] [address] StreetBellevue, [place] [address]Lb. Yilan ChangPROF CHEM 8 (BAS METB)on 03-31-2023 Anion gap [Moles/Vol]9.6 mmol/LNormalThe City HospitalComment on above: Performed By: #### BMP ####[facility] [address] [id number].Yilan ChangCalcium [Mass/Vol]10.3 mg/dLCritically high8.5-10.1The City HospitalComment on above:Performed By: #### BMP ####[facility] [address] [place], [place] [address]Dr. Yilan ChangChloride [Moles/Vol]103 mmol/YYowkxh14-387Zcq [facility] Comment on above:Performed By: #### BMP ####[facility] [address] [place], [place] [address]Dr.Yilan ChangCO2 [Moles/Vol]31.0 mmol/L Exopth56.0-32.0The City HospitalComment on above:Performed By: #### BMP ####[facility] [address] [place], [place] [address]Dr. Yilan ChangCreatinine [Mass/Vol]1.48 mg/dLCritically high0.55-1.02The City HospitalComment on above:Performed By: #### BMP ####[facility] [address] [place], [place] [address]Dr.Yilan ChangEGFR-AF UQIDTVQQ19 mL/min/1.37g9Yzjwfiuhci low>=60The City HospitalComment on above: Performed By: #### BMP ####[facility] [address] [address]Dr.Yilan ChangEGFR-NON AF UYXATELP12 mL/min/1.73m2 Critically low>=60The City HospitalComment on above:Performed By: #### BMP ####[facility] [address] [place], [place] [address]Dr. Yilan ChangGlucose [Mass/Vol]173 mg/dLCritically jshx54-345[facility] Comment on above:Performed By: #### BMP ####[facility] [address] [place], [place] [address]Fx.Yilan ChangPotassium [Moles/Vol]4.6 mmol/LNormal3.5-5.1The City HospitalComment on above:Performed By: #### BMP ####[facility] [address] [place], [place] [address]Iz. Yilan ChangSodium [Moles/Vol]139 mmol/GBrgbwy798-318Nyk City HospitalComment on above:Performed By: #### BMP ####[facility] [address] [place], [place] [address]Cz.Yilan ChangUrea nitrogen [Mass/Vol]63.0 mg/dL Critically high7.0-18.0The City HospitalComment on above:Performed By: #### BMP ####[facility] [address] [place], [place] [address]Hy. Yilan ChangUrea nitrogen/Creatinine [Mass ratio]42.6 mg/mgNormalThe City HospitalComment on above:Performed By: #### BMP ####[facility] [address] [place], [place] [address]Hc.Yilan ChangCT FOOT LT WO CONon 37-95-2156LM FOOT LT WO CONEXAMINATION: CT FOOT LT [...] Electronically authenticated by: BLANKA OLGUIN Date: 2023-03-23 14:59TriHealthAlbumin [Mass/volume] in Serum or Plasma by Bromocresol green (BCG) dye binding methoOrdered By: Elpidio Whipple on 37-69-3566Qjqspis BCG dye [Mass/Vol]4.7 g/dL3.5-5.7FC[facility] Hospital for RehabilitationAutomated erythrocytes count in urine sediment (number/area)Ordered By: Elpidio Whipple on 93-81-7832OGL Auto (Urine sed) [#/Area]None seen [HPF]0-4FC[facility] Automated leukocytes count in urine sediment (number/area)Ordered By: Elpidio Whipple on 07-28-1935MKJ Auto (Urine sed) [#/Area]5-9 [HPF]0-4FCleveland Clinic Children[facility] Hospital for RehabilitationBilirubin Test strip Ql (U)Ordered By: Elpidio Whipple on 03-06-2023 Bilirubin Ql (U)NegativeNegativeScci Hospital LimaCalcium [Mass/volume] in Serum or PlasmaOrdered By: Elpidio Whipple on 55-38-4632Zhokmtg [Mass/Vol]10.2 mg/dL8.6-10.3FC[facility] Hospital for RehabilitationCarbon dioxide, total [Moles/volume] in Serum or PlasmaOrdered By: Elpidio Whipple on 69-38-2258AZ2 [Moles/Vol]28.4 mmol/L21.0-31.0[facility] LimaChloride [Moles/volume] in Serum or PlasmaOrdered By: Elpidio Whipple on 46-10-3897Jnbjiieu [Moles/Vol]104 mmol/X35-168MpauvsepqScci Hospital LimaColor Auto (U) Ordered By: Elpidio Whipple on 29-30-2714Vwzdf (U)Dark yellowYellowScci Hospital LimaCreatinine [Mass/volume] in Serum or PlasmaOrdered By: Elpidio Whipple on 56-68-1079Frhxoakiwd [Mass/Vol]1.22 mg/dL0.60-1.20[facility] LimaCreatinine [Mass/volume] in UrineOrdered By: Elpidio Whipple on 92-29-4106Xxjacjhnqq (U) [Mass/Vol]98.0 mg/dLScci Hospital LimaComment on above:No reference range establishedErythrocyte distribution width Auto (RBC) [Ratio]Ordered By: Elpidio Whipple on 18-47-6381Zgmhclduokw distribution width (RBC) [Ratio]13.8 %11.9-15.3FC[facility] Glucose [Mass/volume] in Serum or PlasmaOrdered By: Elpidio Whipple on 03-06-2023 Glucose [Mass/Vol]101 mg/mP08-001HrkgplpbaScci Hospital LimaComment on above:ADA recommended reference rangeRandom Glucose Reference Range is dependent on time and content of last meal. Glucose of more than 200 mg/dL in a nonstressed, ambulatory subject supports the diagnosisof Diabetes Mellitus. Hematocrit Auto (Bld) [Volume fraction]Ordered By: Elpidio Whipple on 03-06-2023 Hematocrit (Bld) [Volume fraction]38.1 %34.0-46.4FC[facility] Hospital for RehabilitationHemoglobin [Mass/volume] in BloodOrdered By: Elpidio Whipple on 03-06-2023 Hemoglobin (Bld) [Mass/Vol]12.7 g/dL11.8-15.4FC[facility] Ketones Auto test strip (U) [Mass/Vol]Ordered By: Elpidio Whipple on 03-06-2023 Ketones (U) [Mass/Vol]NegativeNegativeScci Hospital Lima Laboratory - UrinalysisOrdered By: Elpidio Whipple on 59-87-7339Fcefwjn casts LM Ql (Urine sed)0-8 [LPF]0-8[facility] LimaLeukocytes [#/volume] corrected for nucleated erythrocytes in Blood by Automated counOrdered By: Elpidio Whipple on 56-90-1139IHA corrected for nucl RBC Auto (Bld) [#/Vol]5.4 10*3/uL 3.8-11.6FC[facility] Hospital for RehabilitationMCH Auto (RBC) [Entitic mass]Ordered By: Elpidio Whipple on 07-83-7428WKW (RBC) [Entitic mass]28.1 pg24.7-34.3FCleveland [facility] Hospital for RehabilitationMCHC Auto (RBC) [Mass/Vol]Ordered By: Elpidio Whipple on 04-63-6502PUIG (RBC) [Mass/Vol]33.3 g/dL32.0-35.0[facility] LimaMCV Auto (RBC) [Entitic vol]Ordered By: Elpidio Whipple on 05-68-6846EBQ (RBC) [Entitic vol]84.5 gG86-441LevlzthpiScci Hospital LimaMagnesium [Mass/volume] in Serum or PlasmaOrdered By: Elpidio Whipple on 46-63-8149Oljbwxvxt [Mass/Vol]1.5 mg/dL1.9-2.7FC[facility] Hospital for RehabilitationNitrite Test strip Ql (U)Ordered By: Elpidio Whipple on 24-68-7910Zemsrdz Ql (U)NegativeNegativeScci Hospital LimaNo Panel InformationOrdered By: Elpidio Whipple on 16-46-1087Gpnehfihd GFR (CKD-EPI)50.176 mL/MinScci Hospital Lima Pharmacy Creatinine Clearance (ChemN/[facility] Parathyrin.intact [Mass/volume] in Serum or PlasmaOrdered By: Elpidio Whipple on 87-49-6628Aejuldkxbe.intact [Mass/Vol]43.8 pg/gZ14-68XpyuyhefiScci Hospital LimaPhosphate [Mass/volume] in Serum or PlasmaOrdered By: Elpidio Whipple on 46-21-2821Vuibyttml [Mass/Vol]4.3 mg/dL3.7-7.2FC[facility] Platelet mean volume Auto (Bld) [Entitic vol]Ordered By: Elpidio Whipple on 79-41-9050Cxqsmayy mean volume (Bld) [Entitic vol]8.7 fL6.3-10.7FCleveland Clinic Children[facility] Hospital for RehabilitationPlatelets Auto (Bld) [#/Vol]Ordered By: Elpidio Whipple on 90-46-9280Yfsaqkzdt (Bld) [#/Vol]191 10*3/kO426-167TbhxldeuwScci Hospital LimaPotassium [Moles/volume] in Serum or PlasmaOrdered By: Elpidio Whippel on 59-86-5930Pfhgougoq [Moles/Vol]4.0 mmol/L3.5-5.1FC[facility] for RehabilitationProtein Auto test strip (U) [Mass/Vol]Ordered By: Elpidio Whipple on 52-15-1433Zwzrxbp (U) [Mass/Vol]NegativeNegativeScci Hospital LimaProtein [Mass/volume] in UrineOrdered By: Elpidio Whipple on 49-41-6467Crzsjwy (U) [Mass/Vol]8 mg/dL0-9[facility] LimaRBC Auto (Bld) [#/Vol] Ordered By: Elpidio Whipple on 37-63-9483EBP (Bld) [#/Vol]4.51 10*6/uL3.60-5.00 [facility] Hospitalerum or plasma anion gap determinationOrdered By: Elpidio Whipple on 26-82-4611Vcnaj gap [Moles/Vol]12.6 mmol/L6.0-15.0[facility] Hospitalodium [Moles/volume] in Serum or PlasmaOrdered By: Elpidio Whipple on 68-99-8925Qtxkeg [Moles/Vol]141 mmol/O949-994AgvptjiwxHarrison Community Hospitalpecific gravity Auto test strip (U) [Rel density]Ordered By: Elpidio Whipple on 12-87-5074Gluqwtfg gravity (U) [Rel density]1.0171.001-1.030 [facility] Hospitalquamous epithelial cells detection in urine sediment by light microscopyOrdered By: Elpidio Whipple on 36-72-4502Ttoivikafn cells.squamous LM Ql (Urine sed)5-9 [HPF]0-2FC[facility] Urate [Mass/volume] in Serum or PlasmaOrdered By: Elpidio Whipple on 33-78-2365Dzteg [Mass/Vol]6.7 mg/dL2.3-6.6FC[facility] Hospital for RehabilitationUrea nitrogen [Mass/volume] in Serum or PlasmaOrdered By: Elpidio Whipple on 43-70-5925Geoc nitrogen [Mass/Vol]37 mg/dL7-25[facility] LimaUrine bacteria detection by automated methodOrdered By: Elpidio Silvadir on 58-73-5725Onathqox Auto Ql (U)None seenNone SeenScci Hospital LimaUrine clarity by refractometry automatedOrdered By: Elpidio Sole on 87-26-3452Wanqwuo Refractometry automated (U)ClearClearFCleveland Clinic Children's Hospital for RehabilitationUrine culture routineOrdered By: Elpidio Silvadir on 97-78-4895Tpapohdj identified Cx Nom (U)2 DaysScci Hospital LimaUrine glucose measurement by automated test strip (mass/volume)Ordered By: Elpidio Silvadir on 31-33-7817Aetrvmq Auto test strip (U) [Mass/Vol]Normal mg/dLNoUniversity Hospitals Beachwood Medical CenterUrine hemoglobin detection by automated test stripOrdered By: Elpidio Silvadir on 45-55-8982Xebklvokqy Auto test strip Ql (U)NegativeNegativeScci Hospital LimaUrine leukocyte esterase detection by automated test stripOrdered By: Elpidio Silvadir on 45-54-5117Uxjydudhv esterase Auto test strip Ql (U)2+Negative [facility] LimaUrine protein/creatinine ratioOrdered By: Elpidio Sole on 86-77-6128Rwdqasf/Creatinine (U) [Ratio]82 mg/g{Cre}0-200[facility] LimaUrobilinogen Auto test strip (U) [Mass/Vol]Ordered By: Elpidio Sole on 98-92-9353Xmgyjhmisraf (U) [Mass/Vol]Normal mg/dLNoUniversity Hospitals Beachwood Medical CenterVitamin D+Metabolites [Mass/volume] in Serum or Plasma Ordered By: Elpidio Sole on 04-70-3540Vbpzgrx D+Metabolites [Mass/Vol]46.0 ng/mL 30-100[facility] LimaComment on above:VITAMIN D STATUS 25(OH)VITAMIN D RANGE (ng/mL) Deficient <20 Insufficient 20 to <25Fysenhltrl45 to 100Reference: Nayeli MF,Hannah NC, Jose GILBERT, et al. Evaluation,treatment, and prevention of vitamin D deficiency; an Endocrine Society clinical practice guideline. JCEM. 2010; 96(7):1911-30.pH Auto test strip (U)Ordered By: Elpidio Whipple on 51-86-2030bD (U)5.5 [pH]5.0-9.0[facility] LimaXR FOOT LAURA MIN 3 VIEWSon 04-15-1070BE FOOT LAURA MIN 3 VIEWSEXAMINATION: XR FOOT [...] Electronically authenticated by: BRODERICK FLOR Date: 2023-02-17 14:34NormalThSelect Medical Specialty Hospital - TrumbullCB AUTO DIFFon 26-68-2622TOOD #0.0 103/ulNormal0.0-0.1[facility] HospitalComment on above:Performed By: #### CBC #### [facility] [address] [address] [address] Tere Naranjosophils/100 WBC (Bld)0.6 %Normal0.2-2.0[facility] Comment on above:Performed By: #### CBC #### [facility] [address] [address] [address] Tere Barksdale #0.1 103/ulNormal0.0-0.7The City HospitalComment on above: Performed By: #### CBC #### [facility] [address] [address] [address] Tere Mendezosinophils/100 WBC (Bld)2.9 %Normal0.9-7.0[facility] Comment on above:Performed By: #### CBC #### [facility] [address] [place] [address] Dr. Tere Mendezrythrocyte distribution width (RBC) [Ratio]13.2 %Jdgnqg93.0-15.0 The City HospitalComment on above:Performed By: #### CBC #### [facility] [address] [place] [address] Dr. Tere SotoHematocrit (Bld) [Volume fraction]39.0 %Pmlffv19.0-48.0The City HospitalComment on above:Performed By: #### CBC #### [facility] [address] [place] [address] Dr. Tere SotoHemoglobin (Bld) [Mass/Vol]13.0 g/wMGvzurh79.0-16.0The [facility] Hospitalment on above:Performed By: #### CBC #### [facility] [address] [place] [address] Dr. Tere Carolina #0.01 10e3/ulNormal0.00-0.03The [facility] Hospitalment on above:Performed By: #### CBC #### [facility] [address] [place] [address] Dr. Tere Carolina %0.2 %Normal0.0-0.5The [facility] Hospitalment on above: Performed By: #### CBC #### [facility] [address] [place] [address] Dr. Tere Salguero #2.1 103/ulNormal1.2-3.8The [facility] on above:Performed By: #### CBC #### [facility] [address] [place] [address] Dr. Tere Escamillamphocytes/100 WBC (Bld)42.6 %Zjmkzi50.5-60.0The [facility] HospitalComment on above:Performed By: #### CBC #### [facility] [address] [address] [address] Tere Mayfield DIFF REQNONormalThe City HospitalComment on above: Performed By: #### CBC #### [facility] [address] [address] [address] Tere Lomeli (RBC) [Entitic mass]28.4 npFmfzmn05.7-34.0The City HospitalComment on above:Performed By: #### CBC #### [facility] [address] [place] [address] Dr. Tere Lomeli (RBC) [Mass/Vol]33.3 g/aLBfyfsz82.9-35.2The City HospitalComment on above:Performed By: #### CBC #### [facility] [address] [place] [address] Dr. Tere Lomeli (RBC) [Entitic vol]85.2 oPGhrkno02.0-99.0The City HospitalComment on above:Performed By: #### CBC #### [facility] [address] [place] [address] Dr. Tere Tsai #0.3 103/ulNormal0.3-0.8The City HospitalComment on above:Performed By: #### CBC #### [facility] [address] [place] [address] Dr. Tere Hillocytes/100 WBC (Bld)6.8 %Normal1.7-12.0[facility] Comment on above:Performed By: #### CBC #### [facility] [address] [address] [address] Tere Green #2.3 103/ulNormal1.4-6.5The City HospitalComment on above:Performed By: #### CBC #### [facility] [address] [place] [address] Dr. Tere Velezutrophils/100 WBC (Bld)46.9 %Cmeimb67.0-75.0The City HospitalComment on above:Performed By: #### CBC #### [facility] [address] [address] [address] Tere Hernandezlet mean volume (Bld) [Entitic vol]11.3 fLNormal9.5-13.5The City HospitalComment on above:Performed By: #### CBC #### [facility] [address] [place] [address] Dr. Tere SotoPLT183 103/gaCpckkn224-611Yeg City HospitalComment on above: Performed By: #### CBC #### [facility] [address] [place] [address] Dr. Tere SotoRBC4.58 106/ulNormal4.20-5.40The City HospitalComformerly [facility] on above:Performed By: #### CBC #### [facility] [address] [place] [address] Dr. Tere SotoWBC4.8 103/ulNormal4.0-11.0The City HospitalComment on above: Performed By: #### CBC #### [facility] [address] [place] [address] Dr. Tere SotoCovisonia-19 PCR ([facility]VDCHEL[facility])on 34-22-5962ENQJ-CoV-2 (COVID-19) RNA AHMET+probe Ql (Unsp spec)Not detectedNormalNOT DETECTEDThe [facility] Comment on above:Result Comment: This test is not yet approved or cleared by the [place] FDA. When there are no FDA-approved or cleared tests available, and other criteria are met, FDA can make tests available under an emergency access mechanism called an Emergency Use Authorization (EUA). The EUA for this test is supported by the Lead Designer of Health and Human Service's (HHS's) declaration [...] consistent with SARS-CoV-2.Performed By: #### CVDTBH #### [facility] [address] [place] [address] Dr. Tere SotoPROF CHEM 8 (BAS METB)on 58-97-9642Xhpaw gap [Moles/Vol]13.6 mmol/LNormalThe City HospitalComment on above:Performed By: #### BMP #### [facility] [address] [place] [address] Dr. Tere SotoCalcium [Mass/Vol]9.6 mg/dLNormal8.5-10.1[facility] Comment on above:Performed By: #### BMP #### [facility] [address] [place] [address] Dr. Tere SotoChloride [Moles/Vol]103 mmol/EElcxjk96-758Xcs [facility] Comment on above:Performed By: #### BMP #### [facility] [address] [place] [address] Dr. Tere SotoCO2 [Moles/Vol]28.9 mmol/ZKlepfs64.0-32.0[facility] Comment on above:Performed By: #### BMP #### [facility] [address] [place] [address] Dr. Tere SotoCreatinine [Mass/Vol]1.25 mg/dLCritically high0.55-1.02The City HospitalComment on above:Performed By: #### BMP #### [facility] [address] [place] [address] Dr. Tere MendezGFR-AF HJMQLCKC18 mL/min/1.46p8Vmrnxikyjj low>=60The City HospitalComment on above:Performed By: #### BMP #### [facility] [address] [place] [address] Dr. Tere MendezGFR-NON AF FHKYCGOY99 mL/min/1.88b1Skohkpjwam low>=60The City HospitalComment on above:Performed By: #### BMP #### [facility] [address] [address] [address] Tere SotoGlucose [Mass/Vol]121 mg/dLCritically pgfp72-055Efr [facility] on above:Performed By: #### BMP #### [facility] [address] [address] [address] Tere SotoPotassium [Moles/Vol]4.5 mmol/LNormal3.5-5.1[facility] Comment on above:Performed By: #### BMP #### [facility] [address] [address] [address] Tere SotoSodium [Moles/Vol]141 mmol/LKtigek219-400Mgw [facility] Comment on above:Performed By: #### BMP #### [facility] [address] [address] [address] Tere SotoUrea nitrogen [Mass/Vol]43.0 mg/dLCritically high7.0-18.0The [facility] on above:Performed By: #### BMP #### [facility] [address] [address] [address] Tere Cox nitrogen/Creatinine [Mass ratio]34.4 mg/mgNoFirelands Regional Medical CenterComment on above:Performed By: #### BMP #### [facility] [address] [address] [address] Tere SotoPROTIMEmarisela 49-16-8101GDY Coag (PPP) [Relative time]{INR}NormalThe [facility] on above:Performed By: #### PT, PTT ####[facility] [address] [address]Dr. Tere Seaman GUIDELINESSEE Peoples HospitalComformerly [facility] on above:Result Comment: DESIRED INR: 2.0 - 3.0 CONDITIONS NOT LISTED BELOW 2.5 - 3.5 FOR PROSTHETIC HEART VALVE REPLACEMENT 2.5 - 3.5 RECURRENT THROMBOSISPerformed By: #### PT, PTT ####[facility] [address] [id number]. Tere SotoPT Coag (PPP) [Time]9.8 sNormal9.0-11.6The City HospitalComment on above:Performed By: #### PT, PTT ####[facility] [address] [place], [place] [address]Ky. Tere SotoPTTon 37-25-0620sMWX Coag (Bld) [Time]26.5 uVhhzkq93.3-36.2[facility] HospitalComment on above:Performed By: #### PT, PTT ####[facility] [address] [place], [place] [address]Em. Tere SotoCT FOOT LT WO CONon 80-54-7582LX FOOT LT WO CONEXAMINATION: CT FOOT LT [...] Electronically authenticated by: BRODERICK FLOR Date: 2022-11-26 16:36NoFirelands Regional Medical CenterXR ANKLE LAURA MIN 3 VIEWSon 29-04-8544KZ ANKLE LAURA MIN 3 VIEWS EXAMINATION: XR [...] Electronically authenticated by: BLANKA OLGUIN Date: 2022-11-13 06:[address] [place] [address] Visit (Cardiology)on 54-94-3837Thognl-up visit Diagnoses/Problems Assessed CAD (coronary artery disease) (414.00) (I25.10) Essential hypertension (401.9) (I10) Hyperlipidemia (272.4) (E78.5) 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 (V45.82) (Z95.5) LAD February 2022 Diabetes mellitus (250.00) (E11.9) Obstructive sleep apnea syndrome (327.23) (G47.33) Never a smoker Class 2 obesity with body mass index (BMI) of 36.0 to 36.9 in adult (278.00,V85.36) (E66.9,Z68.36) Xmcovuh-Sxduf-Yryzo disease (356.1) (G60.0) Orders CAD (coronary artery [...] Weight Tips; Status:Complete - Retrospective Authorization; Done: [id number] Some eating tips that can help you lose weight.; Status:Complete - Retrospective Authorization; Done: [id number] SocHx: Never a smoker Tobacco Use Screening; Status:Complete; Done: [id number] Patient Instructions Please bring all medicines, vitamins, [...] Since her last visit she has developed Cupnloo-Cwtpo-Vgdfb joint in the left foot and is planning surgery next month. Cardiac wiseshe has remained symptoms free. Recent lab data were reviewed from July 2022. LDL remains sarg737 mg/dL. She has been only on Lovaza [...] machine patient has been compliant with it. 7?Nigolwa-Xvanu-Ixovi joint in the left ankle and need [...] content not included)...NormalUH Touchworks Culture, MRSA Screenon 01-59-0372Rwjqbjn, MRSA ScreenCulture, MRSA Screen-: Methicillin resistant Staph aureus not isolatedNormalSNewton-Wellesley HospitalHgb A1Con 66-71-7846BcQ9o (Bld) [Mass fraction]7.1 %High4.0-5.6SaWrentham Developmental Centeredimentation Rateon 07-92-4004Ptjdnyrquntay Rate44 mm/Hr High0-20SNewton-Wellesley HospitalC-Reactive Proteinon 40-38-9628A-Reactive Protein0.4 mg/dLNormal0.0-0.4SNewton-Wellesley HospitalCBC With Platelet and Differentialon 33-08-3116Msb Imm Granulocytes0.01 E9/LNormalNashoba Valley Medical CenterAbsolute Basophils0.05 E9/LNormal0.00-0.20SNewton-Wellesley HospitalAbsolute Eosinophils0.15 E9/LNormal0.05-0.50[facility] Absolute Lymphocytes2.20 E9/LNormal1.50-4.00[facility] Absolute Monocytes0.35 E9/LNormal0.10-0.95[facility] CenterAbsolute Neutrophils1.88 E9/LNormal1.80-7.30SNewton-Wellesley HospitalBasophils/100 WBC (Bld)1.1 %Normal0.0-2.0[facility] CenterEosinophils/100 WBC (Bld)3.2 %Normal0.0-6.0[facility] CenterHematocrit (Bld) [Volume fraction]36.9 %Aleqvl67.0-48.0[facility] CenterHemoglobin (Bld) [Mass/Vol]12.4 g/pKTbvrrb66.5-15.5SNewton-Wellesley HospitalImm Granulocytes 0.2 %Normal0.0-5.0[facility] CenterLymphocytes/100 WBC (Bld)47.4 % High20.0-42.0[facility] CenterMCH (RBC) [Entitic mass]29.7 pgNormal 26.0-35.0[facility] CenterMCHC33.6 %Zkmjgb73.0-34.5SNewton-Wellesley HospitalMCV (RBC) [Entitic vol]88.3 vJPrssfa97.0-99.9[facility] CenterMonocytes/100 WBC (Bld)7.5 %Normal2.0-12.0[facility] Neutrophils/100 WBC (Bld)40.6 %Low43.0-80.0[facility] CenterPlatelet Ylvhf787 E9/DBkifpt362-474CdfuxNashoba Valley Medical CenterPlatelet mean volume (Bld) [Entitic vol]11.7 fLNormal7.0-12.0[facility] CenterRBC4.18 E12/LNormal3.50-5.50[facility] CenterRDW13.3 lTRxozdp84.5-15.0[facility] CenterWBC4.6 E9/LNormal4.5-11.5SNewton-Wellesley Hospital Comprehensive Metabolic Panelon 68-09-4598Ihlfcar [Mass/Vol]4.3 g/dLNormal 3.5-5.2SNewton-Wellesley HospitalALP [Catalytic activity/Vol]71 U/LNormal 35-104[facility] CenterALT [Catalytic activity/Vol]12 U/LNormal0-32 [facility] CenterAnion gap [Moles/Vol]10 mmol/LNormal7-16SNewton-Wellesley HospitalAST [Catalytic activity/Vol]19 U/LNormal0-31[facility] CenterBilirubin [Mass/Vol]0.3 mg/dLNormal0.0-1.2SNewton-Wellesley HospitalCalcium [Mass/Vol]10.3 mg/dLHigh8.6-10.2SNewton-Wellesley HospitalChloride [Moles/Vol]103 mmol/ZSdqfqm36-811BypunNashoba Valley Medical CenterCO2 [Moles/Vol]27 mmol/ZIymjgk18-81GucqqNashoba Valley Medical CenterCreatinine [Mass/Vol]1.2 mg/dLHigh0.5-1.0[facility] CenterGFR/1.73 sq M.predicted among non-blacks MDRD (S/P/Bld) [Vol rate/Area]51 mL/min/{1.73_m2} Normal>=60[facility] Medical CenterComment on above:Result Comment: Pediatric calculator link https://www.kidney.org/professionals/kdoqi/gfr_calculatorped [...] that affects renal tubular secretion.Glucose [Mass/Vol]111 mg/dLHigh 74-99[facility] CenterPotassium [Moles/Vol]4.6 mmol/LNormal3.5-5.0 [facility] CenterProtein [Mass/Vol]7.3 g/dLNormal6.4-8.3SWinchendon Hospitalodium [Moles/Vol]140 mmol/LYeuhax752-685PrlqlNashoba Valley Medical CenterUrea nitrogen [Mass/Vol]30 mg/dLHigh6-23[facility] CenterAlbumin [Mass/volume] in Serum or PlasmaOrdered By: Charan Casey on 57-56-7952Wrarich [Mass/Vol]3.9 g/dL3.2-5.5FC[facility] Automated erythrocytes count in urine sediment (number/area)Ordered By: Elpidio Whipple on 01-63-8308DND Auto (Urine sed) [#/Area]0-1 [HPF]0-4FCleveland Clinic Children's Hospital for RehabilitationAutomated leukocytes count in urine sediment (number/area)Ordered By: Elpidio Whipple on 01-88-3217AAK Auto (Urine sed) [#/Area]None seen [HPF]0-4 [facility] LimaBasophils Auto (Bld) [#/Vol]Ordered By: Charan Casey on 80-64-9535Pzwcqhyam (Bld) [#/Vol]0.1 10*3/uL0.0-0.2FCleveland Clinic Children[facility] Hospital for RehabilitationBasophils/100 WBC Auto (Bld)Ordered By: Charan Casey on 08-13-2022 Basophils/100 WBC (Bld)1.0 %.[facility] LimaBilirubin Test strip Ql (U)Ordered By: Elpidio Whipple on 59-16-0090Bctulyjef Ql (U)Negative NegativeScci Hospital LimaCholesterol [Mass/volume] in Serum or PlasmaOrdered By: Charan Casey on 06-91-1622Cywtwnflzqi [Mass/Vol]170 mg/hI950-458 [facility] LimaComment on above:Chol less than 200 mg/dl low riskChol 201-239 mg/dl borderline riskChol 240 mg/dl and greater high risk Cholesterol in LDL Calc [Mass/Vol]Ordered By: Charan Casey on 08-13-2022 Cholesterol in LDL [Mass/Vol]101 mg/dL0-100[facility] Comment on above:LDL ATP III CLASSIFICATIONLDL less than 100 mg/dL OptimalLDL 100-129 mg/dL Near or above acehaxwERQ268-550 mg/dL Borderline highLDL 160-189 mg/dL HighLDL greater than 189 mg/dL Very highCholesterol in VLDL Calc [Mass/Vol]Ordered By: Charan Casey on 44-14-1045Nwuhvbkjxlu in VLDL [Mass/Vol]41 mg/dLScci Hospital LimaColor Auto (U)Ordered By: Elpidio Whipple on 52-53-7008Oxaqi (U)Dark yellowYellowScci Hospital LimaCreatinine [Mass/volume] in UrineOrdered By: Elpidio Whipple on 95-12-8900Bgeuyrpvbt (U) [Mass/Vol]127.6 mg/dLScci Hospital LimaComment on above:No reference range establishedCreatinine and Glomerular filtration rate.predicted panel (S/P/Bld)Ordered By: Charan Casey on 71-69-4067Yunycdkxze [Mass/Vol]1.41 mg/dL0.44-1.03[facility] Hospital LimaEosinophils Auto (Bld) [#/Vol] Ordered By: Charan Casey on 83-09-6742Dqfikojfavu (Bld) [#/Vol]0.1 10*3/uL0.0-0.45 [facility] LimaEosinophils/100 WBC Auto (Bld)Ordered By: Charan Casey on 28-35-8593Ohaxzojmhjn/100 WBC (Bld)1.7 %.[facility] Hospital LimaErythrocyte distribution width Auto (RBC) [Ratio]Ordered By: Charan Casey on 32-66-0522Qjlrxiemqnx distribution width (RBC) [Ratio]13.1 %11.9-15.3FCleveland Clinic Children[facility] Hospital for RehabilitationEstimated glomerular filtration rate (GFR) non- AmericanOrdered By: Charan Casey on 58-96-8489OUB/1.73 sq M.predicted among non- blacks MDRD (S/P/Bld) [Vol rate/Area]38 mL/MinScci Hospital Lima Globulin Calc (S) [Mass/Vol]Ordered By: Charan Casey on 23-05-4076Dribmfho (S) [Mass/Vol]3.1 g/dLScci Hospital LimaHematocrit Auto (Bld) [Volume fraction]Ordered By: Charan Casey on 39-90-7977Cfhfbspgqf (Bld) [Volume fraction] 38.0 %34.0-46.4FCleveland [facility] Children[facility] Hospital for RehabilitationHemoglobin [Mass/volume] in BloodOrdered By: Charan Casey on 87-14-9630Iqzsygejsb (Bld) [Mass/Vol]12.6 g/dL 11.8-15.4FC[facility] Children[facility] Hospital for RehabilitationKetones Auto test strip (U) [Mass/Vol] Ordered By: Elpidio Whipple on 13-23-9943Sbvqgbm (U) [Mass/Vol]NegativeNegative [facility] LimaLaboratory - Chemistry and Chemistry - challengeOrdered By: Elpidio Whipple on 20-60-0731Ytiowpnny [Mass/Vol]1.9 mg/dL 1.6-2.6FC[facility] for RehabilitationLaboratory - Hematology and Cell counts Ordered By: Chraan Casey on 01-26-6612Bihkprsph RBC/100 WBC (Bld) [Ratio]0.0 % 0-0.5FC[facility] Hospital for RehabilitationLaboratory - UrinalysisOrdered By: Elpidio Whipple on 45-96-1478Khniyss casts LM Ql (Urine sed)0-8 [LPF]0-8[facility] LimaLeukocytes [#/volume] in Blood by Automated countOrdered By: Charan Casey on 57-74-6430MJX (Bld) [#/Vol]8.2 10*3/uL4.5-11.0[facility] LimaLymphocytes Auto (Bld) [#/Vol]Ordered By: Charan Casey on 08-13-2022 Lymphocytes (Bld) [#/Vol]2.8 10*3/uL1.00-4.8[facility] Lymphocytes/100 WBC Auto (Bld)Ordered By: Charan Casey on 08-13-2022 Lymphocytes/100 WBC (Bld)34.1 %.[facility] HospitalH Auto (RBC) [Entitic mass]Ordered By: Charan Casey on 37-08-7039UTA (RBC) [Entitic mass]28.5 pg24.7-34.3FSCCI Hospital LimaHC Auto (RBC) [Mass/Vol]Ordered By: Charan Casey on 36-71-5373DTCB (RBC) [Mass/Vol]33.2 g/dL32.0-35.0[facility] LimaMCV Auto (RBC) [Entitic vol]Ordered By: Charan Casey on 66-66-0088HUJ (RBC) [Entitic vol]85.8 aI01-036QhxzntgoaScci Hospital Lima Monocytes Auto (Bld) [#/Vol]Ordered By: Charan Casey on 77-42-1159Ofdrghkkc (Bld) [#/Vol]0.5 10*3/uL0.0-0.8[facility] LimaMonocytes/100 WBC Auto (Bld)Ordered By: Charan Casey on 79-35-2199Ibojiviui/100 WBC (Bld)6.4 %.[facility] LimaNeutrophils Auto (Bld) [#/Vol]Ordered By: Charan Casey on 50-80-2365Foktpbvgmna (Bld) [#/Vol]4.7 10*3/uL1.8-7.7FC[facility] Hospital for RehabilitationNeutrophils/100 WBC Auto (Bld)Ordered By: Charan Casey on 08-13-2022 Neutrophils/100 WBC (Bld)56.8 %.[facility] Hospital LimaNitrite Test strip Ql (U)Ordered By: Elpidio Whipple on 14-99-3056Cefwnnn Ql (U)NegativeNegative [facility] LimaNo Panel InformationOrdered By: Charan Casey on 98-57-096105071872-Rgvumlr Vitamin D Total37.8 ng/zB46-152NfffslltuScci Hospital LimaComment on above:VITAMIN D STATUS 25(OH)VITAMIN D RANGE (ng/mL) Deficient <20 Insufficient 20 to <11Nztkgczhpm27 to 100Reference: Nayeli MF,Hannah SCHREIBER, Jose GILBERT, et al. Evaluation,treatment, and prevention of vitamin D deficiency; an Endocrine Society clinical practice guideline. JCEM. 2010; 96 (7):1911-30.Estimated GFR ()46 mL/MinScci Hospital LimaComment on above:GFR estimated reference range: According to KDOQI guidelines, <60 ml/min/1.73m2 is sufficient todiagnose a patient with chronic kidney disease.Pharmacy Creatinine Clearance (ChemN/[facility] HospitalPlatelet mean volume Auto (Bld) [Entitic vol]Ordered By: Charan Casey on 25-40-7910Cwdngchs mean volume (Bld) [Entitic vol]9.2 fL6.3-10.7FCleveland Clinic Children's Hospital for RehabilitationPlatelets Auto (Bld) [#/Vol]Ordered By: Charan Casey on 03-91-4927Oniyawepx (Bld) [#/Vol]272 10*3/sY223-882GkhusnwogScci Hospital LimaProtein Auto test strip (U) [Mass/Vol]Ordered By: Elpidio Whipple on 78-17-5119Ktkjphf (U) [Mass/Vol]NegativeNegativeScci Hospital LimaProtein [Mass/volume] in Serum or PlasmaOrdered By: Charan Casey on 79-12-6272Fzvtovn [Mass/Vol]7.0 g/dL6.1-7.9[facility] Protein [Mass/volume] in UrineOrdered By: Elpidio Whipple on 46-07-6626Mvbblpu (U) [Mass/Vol]7 mg/dL0-9[facility] LimaRBC Auto (Bld) [#/Vol] Ordered By: Charan Casey on 82-10-2374EXI (Bld) [#/Vol]4.43 10*6/uL3.60-5.00 [facility] Hospitalerum or plasma alanine aminotransferase measurement without P-5'-P (enzymatic activiOrdered By: Charan Casey on 08-13-2022 ALT No additional P-5'-P [Catalytic activity/Vol]12 U/K07-22HlrqxbcrdHarrison Community Hospitalerum or plasma albumin/globulin mass ratioOrdered By: Charan Casey on 72-12-3381Dlankzv/Globulin [Mass ratio]1.3 {ratio}[facility] Hospitalerum or plasma alkaline phosphatase measurement (enzymatic activity/volume)Ordered By: Charan Casey on 03-14-0212JQB [Catalytic activity/Vol] 79 U/H63-79GbuuwqjkcHarrison Community Hospitalerum or plasma anion gap determinationOrdered By: Charan Casey on 73-51-0511Deaot gap [Moles/Vol]15.4 mmol/L6.0-15.0[facility] Hospitalerum or plasma aspartate aminotransferase measurement (enzymatic activity/volume)Ordered By: Charan Casey on 95-06-9549ZEX [Catalytic activity/Vol]22 U/L49-09BfwyqxgnqHarrison Community Hospitalerum or plasma calcium measurement (mass/volume)Ordered By: Charan Casey on 50-75-5259Kvwrsxh [Mass/Vol]10.1 mg/dL8.2-10.2FC[facility] Serum or plasma chloride measurement (moles/volume)Ordered By: Charan Casey on 93-79-0046Estjwxun [Moles/Vol]102 mmol/U50-761DismutmxiScci Hospital Lima Serum or plasma glucose measurement (mass/volume)Ordered By: Charan Casey on 06-53-3618Tqvwifv [Mass/Vol]114 mg/dC63-445NsjidnyjqScci Hospital Lima Comment on above:ADA recommended reference rangeRandom Glucose Reference Range is dependent on time and content of last meal. Glucose of more than 200 mg/dL in a nonstressed, ambulatory subject supports the diagnosisof Diabetes Mellitus. Serum or plasma high density lipoprotein (HDL) cholesterol measurementOrdered By: Charan Casey on 75-36-7578Tsqsoejkgbl in HDL [Mass/Vol]28 mg/iK76-50ZhmgnyqggScci Hospital LimaComment on above:HDL CHOL ATP-III CLASSIFICATION Cardiovascular RiskHDL > or equal to 60 mg/dL LOWHDL < 40 mg/dL HIGHSerum or plasma intact parathyroid hormone measurement (mass/volume)Ordered By: Elpidio hWipple on 44-16-7629Uwqtdlyoei.intact [Mass/Vol]87.0 pg/iY54-39CgrmglvvhHarrison Community Hospitalerum or plasma potassium measurement (moles/volume)Ordered By: Charan Casey on 86-65-4954Bzbhelwfe [Moles/Vol]4.9 mmol/L3.5-5.1FVan Wert County Hospitalerum or plasma sodium measurement (moles/volume)Ordered By: Charan Casey on 45-91-2373Fkmjof [Moles/Vol]138 mmol/X368-258UytqqcugpHarrison Community Hospitalerum or plasma total bilirubin measurement (mass/volume)Ordered By: Charan Casey on 69-42-6841Qompesepq [Mass/Vol]0.4 mg/dL0.3-1.2FVan Wert County Hospitalerum or plasma total carbon dioxide measurement (moles/volume)Ordered By: Charan Casey on 10-89-2480NP4 [Moles/Vol]25.5 mmol/L 22.0-30.0[facility] Hospitalerum or plasma total cholesterol/high density lipoprotein (HDL) cholesterol mass ratOrdered By: Charan Casey on 92-09-2459Utnumhloofa.total/Cholesterol in HDL [Mass ratio]6.1 {ratio}<5.0 [facility] Hospitalerum or plasma urea nitrogen measurement (mass/volume)Ordered By: Charan Casey on 14-63-2289Bguj nitrogen [Mass/Vol]45 mg/dL9-23H[facility] Hospitalerum or plasma uric acid measurement (mass/volume)Ordered By: Charan Casey on 43-84-9079Xsvkd [Mass/Vol]7.9 mg/dL 2.6-7.2FVan Wert County Hospitalpecific gravity Auto test strip (U) [Rel density]Ordered By: Elpidio Whipple on 13-10-5550Hgzeuuky gravity (U) [Rel density]1.0201.001-1.030H[facility] Community Hospitalquamous epithelial cells detection in urine sediment by light microscopyOrdered By: Elpidio Whipple on 65-04-2061Ggtciywxvk cells.squamous LM Ql (Urine sed)0-1 [HPF]0-2FC[facility] Hospital for RehabilitationTS DL <= 0.005 mIU/L QnOrdered By: Charan Casey on 72-52-2805HVS Qn1.91 m[IU]/L0.45-5.33[facility] Triglyceride [Mass/volume] in Serum or PlasmaOrdered By: Charan Casey on 56-13-7664Ssirhesnpsqz [Mass/Vol]207 mg/rT16-097LuorqjiduScci Hospital LimaComment on above:TRIG ATP III CLASSIFICATIONTRIG less than 150 mg/dL NormalTRIG 150-199 mg/dL Borderline highTRIG 200-500 mg/dL High TRIG greater than 500 mg/dL Very highStandard traceable to the Center for Disease Conrtrol and Prevention (CDC) test method.Urine bacteria detection by automated method Ordered By: Elpidio Whipple on 46-67-8743Gwskaowu Auto Ql (U)None seenNone Seen [facility] LimaUrine clarity by refractometry automatedOrdered By: Elpidio Whipple on 84-56-1477Ptzchre Refractometry automated (U)ClearClear [facility] LimaUrine glucose measurement by automated test strip (mass/volume)Ordered By: Elpidio Whipple on 90-59-1598Lcfccdl Auto test strip (U) [Mass/Vol]Normal mg/dLNormalScci Hospital LimaUrine hemoglobin detection by automated test stripOrdered By: Elpidio Whipple on 83-72-1924Pdmelqsdpr Auto test strip Ql (U)NegativeNegativeScci Hospital LimaUrine leukocyte esterase detection by automated test stripOrdered By: Elpidio Whipple on 82-32-5474Sxoavpipg esterase Auto test strip Ql (U)Negative NegativeScci Hospital LimaUrine protein/creatinine ratioOrdered By: Elpidio Whipple on 62-71-6210Cvcodgi/Creatinine (U) [Ratio]55 mg/g{Cre}0-200 [facility] Hospital LimaUrobilinogen Auto test strip (U) [Mass/Vol] Ordered By: Elpidio Whipple on 55-42-1372Yotnijjegeir (U) [Mass/Vol]Normal mg/dL NormalScci Hospital LimapH Auto test strip (U)Ordered By: Elpidio Whipple on 87-96-4902gY (U)5.0 [pH]5.0-9.0[facility] LimaTobacco Screening.on 16-30-2212Hrcny depression screening assessmentNo-[facility] [address] DO Work Phone: Fall risk assessmenta) No falls within the last year MP-[facility] 250 DO Work Phone: Tobacco use status CPHSb) NoMP-[facility] [place] 250 DO Work Phone: Laboratory - Chemistry and Chemistry - challengeon 89-53-6115Fdtzbwtgzdf [Mass/Vol]218\S\218above high ycorwrcxl990-479AA-Ruugc [facility] 250 DO Work Phone: Comment on above:Chol less than 200 mg/dl low risk Chol 201-239 mg/dl borderline risk Chol 240 mg/dl and greater high risk Cholesterol in LDL [Mass/Vol]145\S\145above high qwrnikhvq7-375PJ-Fnotg [facility] 250 DO Work Phone: Comment on above:LDL ATP III CLASSIFICATION LDL less than 100 mg/dL Optimal LDL 100-129 mg/dL Near or above optimal LDL 130-159 mg/dL Borderline high LDL 160-189 mg/dL High LDL greater than 189 mg/dL Very high Laboratory - Microbiology and Antimicrobial susceptibilityon 03-25-2022 SARS-CoV-2 (COVID-19) RNA AHMET+probe Ql (Unsp spec)-[facility] 250 DO Work Phone: No Panel Informationon .2\S\40.2Normal.- [facility]-[place] 250 DO Work Phone: [phone]\S\9.7Fhqsqa1.3-10.7MP-[facility]-[place] 250 DO Work Phone: [phone]\S\079Jvktsn346-236UE-Bleuv [facility] 250 DO Work Phone: [phone]\S\13.3Vzalpv64.9-15.3MP-[facility] 250 DO Work Phone: [phone]\S\34.7Rpjehn71.0-35.0MP-[facility] 250 DO Work Phone: [phone]\S\29.7Nmymfj27.7-34.3MP-[facility] 250 DO Work Phone: [phone]\S\2.0Mktbql3.8-7.7MP-[facility] 250 DO Work Phone: [phone]\S\0.2Alzrly3.0-0.45MP-[facility] 250 DO Work Phone: [phone]\S\0.6Normal.MP-[facility] 250 DO Work Phone: [phone]\S\2.9Normal.MP-[facility] 250 DO Work Phone: [phone]\S\7.1Normal.-[facility] 250 DO Work Phone: [phone]\S\49.2Normal.MP-[facility] 250 DO Work Phone: [phone]\S\0.5Bikwth8.0-0.2MP-[facility] 250 DO Work Phone: [phone] on above:PERFORMED BY:[facility], [place] [phone] MEDICAL DIRECTORJE SHELLEY M.D.0.4\S\0.7Fffkvo0.0-0.8MP-[facility] 250 DO Work Phone: [phone]\S\2.0Enhbgv0.00-4.8MP-[facility] 250 DO Work Phone: [phone]\S\85.4Nvljsf75-260EJ-Duphn [facility] 250 DO Work Phone: [phone]\S\39.6Tcznzm39.0-46.4MP-[facility] 250 DO Work Phone: [phone]\S\13.7Icnkfb72.8-15.4MP-[facility] 250 DO Work Phone: [phone]\S\4.96Slkyvq9.60-5.00MP-[facility] 250 DO Work Phone: [phone]\S\5.9Lkzxll3.8-11.6MP-[facility] 250 DO Work Phone: [phone]\S\33.9Krsjtt63.1-36.5MP-[facility] 250 DO Work Phone: Comment on above:PERFORMED BY:[place] [address] [place], [place] [phone] MEDICAL DIRECTORJE SHELLEY M.D.1.0\S\1.0NormalMP-[facility] 250 DO Work Phone: Comment on above:INR [...] patients with mechanical heart valves: 3 - 4.510.9\S\10.9Mczmkb4.0-12.9MP-[facility] 250 DO Work Phone: [phone]\S\26.6Qfesiv68.0-30.0MP-[facility] 250 DO Work Phone: [phone]\S\042Decvev89-736BI-Mlgsl [facility] 250 DO Work Phone: [phone]\S\4.1Fefuqa5.5-5.1MP-[facility] 250 DO Work Phone: [phone]\S\920Yjbzzx065-513GI-[facility] 250 DO Work Phone: [phone]\S\83Kspxpp5-48FU-Gewtb [facility] 250 DO Work Phone: [phone]\S\54NormalMP-[facility] 250 DO Work Phone: Comment on above:GFR estimated reference range: According to KDOQI guidelines, <60 ml/min/1.73m2 is sufficient todiagnose a patient with chronic kidney disease.45\S\45NormalMP-[facility] 250 DO Work Phone: [phone]\S\1.22above high threshold0.44-1.03MP-[facility] 250 DO Work Phone: [phone]\S\6.4Normal<5.0MP-[facility] 250 DO Work Phone: Comment on above:PERFORMED BY:[place] [address] [place], [place] [phone] MEDICAL DIRECTORJE SHELLEY M.D.39\S\39NormalMP-[facility] 250 DO Work Phone: [phone]\S\197above high tdzgemqmt06-546GK-Kguxi [facility] 250 DO Work Phone: Comment on above:TRIG ATP III CLASSIFICATION TRIG less than 150 mg/dL Normal TRIG 150-199 mg/dL Borderline high WNTF154-082 mg/dL High TRIG greater than 500 mg/dL Very high Standard traceable to the Center for Disease Conrtrol and Prevention (CDC) test method.34\S\34below low threshold 56-40QY-Ehidb [facility] 250 DO Work Phone: Comment on above:HDL CHOL ATP-III CLASSIFICATION Cardiovascular Risk HDL > or equal to 60 mg/dL LOW HDL < 40 mg/dL HIGHNegative NormalNegativeMP-[facility] 250 DO Work Phone: Comment on above:This is a duplicate Ashley SARS Antigen (PRISCILA) result to be used for statistical tracking purpose only.PERFORMED BY:[facility], [place] [phone] MEDICAL DIRECTORJE SHLELEY M.D.CT Angio Coronary Arteries with Heart Flowon [id number] Angio Coronary Arteries with Heart Flow NormalMP-[facility] 250 DO Work Phone: th CTA CORONARY ART WITH HEARTFLOW IF SCORE >30%.on [id number] CTA CORONARY ART WITH HEARTFLOW IF SCORE [...] R07.9: Chest pain. COMPARISON: None. ACCESSION NUMBER(S): [id number] ORDERING CLINICIAN: PARK TORRES TECHNIQUE: Using multi-detector [...] Intact. AORTIC VALVE: The (more content not included)...NormalColorado Mental Health Institute at PuebloTobacco Screening.on 27-69-1866Eprir depression screening assessmentNo-[facility] 250 DO Work Phone: Fall risk assessmenta) No falls within the last year -[facility] Stagee-[address] 250 DO Work Phone: Tobacco use status CPHSb) NoM-[facility]- [address] 250 DO Work Phone: SURGICAL PATHOLOGYon [phone] PATHOLOGY Specimen #: [id number] Physician: REUBEN CRAVEN M.D. FINAL DIAGNOSIS1. 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 Skin,left upper arm, shave biopsy ([id number]; 07/20/2018) - Intradermal nevus, neurotized (see comment).AF/CE/dss 07/26/2018 COMMENTMany thanks for involving us in this case of two melanocytic lesions fromthe right posterior shoulder and left upper arm of a 57-year-old woman. 1. Histologic sections demonstrate a junctional melanocytic proliferationwith bridging of adjacent rete ridges, papillary dermalfibrosis andunderlying sparse lymphocytic inflammation and melanoderma. An immunohistochemical stain for MART-1 [facility]. These stains highlight a well-nested,symmetric junctional melanocytic proliferation, consistent with the abovediagnosis.2. Histologic sections demonstrate an intradermal melanocytic proliferationthat matures and disperses to the base. The lesional cells have a spindled,neural appearance with descent into the dermis. Atypia and lymphoidaggregates are not identified. Immunohistochemical stains performed at the [facility] for MART-1and S100 are reviewed. These stains highlight the spindled cells within thedermis. Overall, these histologic and immunohistochemical features areconsistent with the diagnosis ofa neurotized intradermal nevus.Thank you for sending this case in consultation. Please call theDermatopathology Consultation Service at [phone] with questions or ifadditional follow-up information becomes available regarding this patient.This case was reviewed in conjunction with the Dermatopathology Fellow, Dr.Carly Marija MD.Donald Zavaleta M.D. PhD(Electronic Signature) SPECIMEN SUBMITTEDA: 11 SLIDES ([id number]) CLINICAL DATANone provided. of Report: 07/26/2018Date of Procedure: 07/23/2018Dateof Receipt: 07/23/2018Submitted by: REUBEN CRAVEN M.D.Location: V98Plqshcwysf interpretation performed at [facility], [address] [place] [address].NormalPromedica Defiance Regional Hospital Reference LabComment on above:Performed By: #### S ####See report for performing lab information. Vital Signs Date TimeVital SignValuePerforming RwpwvsciiNdfjjvkk73-31-2171 08:040Body ywuxfj664.6 cmAlllucia Munroe DO Work Phone: [facility] Xkjvwhlgur72-62-5818 08:040Body temperature 97.5 [degF]Shaina Munroe DO Work Phone: [facility] Wkmurglyun33-71-7435 08:13040Diastolic blood ohfjpaxj93 mm[Hg]Shaina Petznick DO Work Phone: [facility]ullivanWtqxoyxysr47-63-2575 08:13-0400Heart rate65 /min Shaina Petznick DO Work Phone: [facility]-SullivanUwzepoemiu58-46-4386 08:13-2164FfZ5% (BldA) [Mass fraction]98 %Shaina Petznick DO Work Phone: [facility]-SullivanKifrylxsin77-53-6119 08:13-0400Systolic blood mm[Hg]Shaina Petznick DO Work Phone: [facility]-SullivanNkynenilak35-71-3913 08:20-0400Body temperature 97.8 [degF]Charan Casey DO Work Phone: [phone]08-13-2025 08:20-0400 Diastolic blood mm[Hg]Charan Casey DO Work Phone: [facility]08-13-2025 08:20-0400 Heart rate70 /minCharan Casey DO Work Phone: [facility]08-13-2025 08:20-0400 Respiratory rate16 /minCharan Casey DO Work Phone: [facility]08-13-2025 08:20-0400 SaO2% (BldA) [Mass fraction]97 %Charan Casey DO Work Phone: [facility]08-13-2025 08:20-0400 Systolic blood itqptzbi210 mm[Hg]Charan Casey DO Work Phone: [facility]06-16-2025 10:29-0400 Body ecimnl158.6 cmAlllucia Petfelipeick DO Work Phone: [facility]-SullivanPaotgcfowy64-90-6797 10:29-0400Body mass index (BMI) [Ratio]35.86 kg/t0Wayfehv Petznick DO Work Phone: [facility]-SullivanAtevmztkzs86-93-3790 10:29-0400Body temperature 97.2 [degF]Shaina Munroe DO Work Phone: [facility]woodZtxbfsdqwy27-73-9441 10:29-0400Body tarbvj320.79 kgShaina Munroe DO Work Phone: 1(402)[facility]-1215[facility] KirkwoodRzbvtxmwzo71-22-3758 10:29-0400Diastolic blood tflrnoxf49 mm[Hg]Shaina Munroe DO Work Phone: 1(432)736-[address] [place], [place] [address]Pkhjqezayx31-19-6086 10:29-0400Heart rate67 /min Shaina Munroe DO Work Phone: 1(249)[facility] [place], [place] [address]Kfdayidipc47-68-9233 10:29-0586FgO7% (BldA) [Mass fraction]98 %Shaina Munroe DO Work Phone: 1(601)[facility]-7509[facility] KirkwoodWaygrkmpyg57-62-9232 10:29-0400Systolic blood fgvgifib238 mm[Hg]Shaina Munroe DO Work Phone: 1(305)222-[address] [place], [place] [address]Dnbtfmnelr02-61-5341 08:09-0400Body ustfda665.18 cmCharan Casey DO Work Phone: 1(071)[address]04-07-2025 08:09-0400 Body mass index (BMI) [Ratio]35.4 kg/c3EklmnCharan Casey DO Work Phone: 1(596)[address]04-07-2025 08:09-0400 Body xgrneu788.51 kgCharan Casey DO Work Phone: 1(228)927-61[facility]04-07-2025 08:09-0400 Respiratory rate16 /minCharan Casey DO Work Phone: 1(652)548-15[facility]04-07-2025 08:09-0400 SaO2% (BldA) [Mass fraction]98 %Charan Casey DO Work Phone: 1(263)950-63[facility]03-20-2025 09:35-0400 Body kjobpm340.18 cmCharan Casey DO Work Phone: 1(785)871-[address] [place], [place] 6610903-20-2025 09:35-0400 Body mass index (BMI) [Ratio]36.5 kg/r5MlunrCharan Masseys DO Work Phone: 1(468)[address]03-20-2025 09:35-0400 Body hajbcq149.68 kgCharan Masseys DO Work Phone: 1(283)6-[address] [place], [place] 6610902-10-2025 10:01-0500 Body .18 cmCharan Masseys DO Work Phone: 1(975)0-[address] [place], [place] 6610902-10-2025 10:01-0500 Body mass index (BMI) [Ratio]36.5 kg/z8AniqkCharan Masseys DO Work Phone: 1(029)[address] [place], [place] 4928802-10-2025 10:01-0500 Body itulyj874.68 kgCharan Masseys DO Work Phone: 1(594)[address] [place], [place] 4928802-10-2025 10:01-0500 Diastolic blood clowgmom68 mm[Hg]Charan Masseys DO Work Phone: 1(681)[address] [place], [place] 4928802-10-2025 10:01-0500 Heart rate69 /minCharan Masseys DO Work Phone: 1(822)[address] [place], [place] 4928802-10-2025 10:01-0500 Respiratory rate16 /minCharan Masseys DO Work Phone: 1(720)[address] [place], [place] 4928802-10-2025 10:01-0500 SaO2% (BldA) [Mass fraction]98 %Charan Masseys DO Work Phone: 1(958)[address] [place], [place] 4928802-10-2025 10:01-0500 Systolic blood twvewgih102 mm[Hg]Charan Masseys DO Work Phone: 1(172)[address] [place], [place] 4928801-10-2025 10:39-0500 Body .18 cmYeisonan Brysons DO Work Phone: 9(316)[address] [place], [place] 4928801-10-2025 10:39-0500 Body mass index (BMI) [Ratio]36.1 kg/b7Syhex Brysons DO Work Phone: [facility]01-10-2025 10:39-0500 Body .4 [degF]Charan Masseys DO Work Phone: [facility]01-10-2025 10:39-0500 Body utekcq299.77 kgCharan Masseys DO Work Phone: [facility]01-10-2025 10:39-0500 Diastolic blood jpsvjcyj86 mm[Hg]Charanheather Masseys DO Work Phone: [facility]01-10-2025 10:39-0500 Heart rate78 /minYeisonan Brysons DO Work Phone: [facility]01-10-2025 10:39-0500 Respiratory rate16 /minYeisonan Kuns DO Work Phone: [address] [place], [place] [address]01-10-2025 10:39-0500 SaO2% (BldA) [Mass fraction]97 %Charan Masseys DO Work Phone: [facility]01-10-2025 10:39-0500 Systolic blood vzexpnul229 mm[Hg]Charan Masseys DO Work Phone: [facility]12-03-2024 09:30-0500 Diastolic blood rmvelktr79 mm[Hg]Charan Masseys DO Work Phone: [facility]12-03-2024 09:30-0500 Heart rate65 /minYeisonan Brysons DO Work Phone: [facility]12-03-2024 09:30-0500 Respiratory rate16 /minYeisonan Kuns DO Work Phone: [facility]12-03-2024 09:30-0500 SaO2% (BldA) [Mass fraction]99 %Charan Brysons DO Work Phone: [facility]12-03-2024 09:30-0500 Systolic blood hweybvvb308 mm[Hg]Charan Casey DO Work Phone: [facility]12-03-2024 08:48-0500 Inhaled oxygen flow rate3 L/minCharan Casey DO Work Phone: [facility]12-03-2024 07:38-0500 Body wlydon479.18 cmCharan Casey DO Work Phone: [facility]12-03-2024 07:38-0500 Body xuidjm336.86 kgCharan Casey DO Work Phone: [facility]11-20-2024 08:13-0500 Body lzujfq527.88 kgCharan Casey DO Work Phone: [phone]11-18-2024 13:12-0500 Body gvwaqu881.6 cmAlllucia Petznarnaldo DO Work Phone: 9(374)355-[address] [place], [place] [address]Ffjonzrwik76-14-0365 13:12-0500Body mass index (BMI) [Ratio]39.06 kg/n9Vnitaws Petznick DO Work Phone: [facility]woodLezjjokqfp40-34-1094 13:12-0500Body temperature 97.3 [degF]Shaina Petznick DO Work Phone: 1(060)316-[address] [place], [place] [address]Bjcxnipehq46-32-4773 13:12-0500Body .77 kgAllison Petznick DO Work Phone: 3(827)164-[address] [place], [place] [address]Rskfqfjewv17-21-3147 13:12-0500Diastolic blood hboxmwxr31 mm[Hg]Shaina Petznick DO Work Phone: [facility] KirkwoodKifkinssch69-56-1830 13:12-0500Heart rate78 /min Shaina Petznick DO Work Phone: [place] [address]Ggvxopibos35-88-6191 13:12-2370CaW9% (BldA) [Mass fraction]96 %Shaina Petznick DO Work Phone: [facility] KirkwoodXaithlckol22-48-9698 13:12-0500Systolic blood mm[Hg]Shaina Petznick DO Work Phone: [facility] KirkwoodZdachsxsey01-60-8313 10:28-0400Diastolic blood mlmbiwzj29 mm[Hg]DO Charan Casey Work Phone: [facility]10-22-2024 10:28-0400 Heart rate68 /Dean Casey Work Phone: [facility]10-22-2024 10:28-0400 Respiratory rate16 /Dean Casey Work Phone: [facility]10-22-2024 10:28-0400 SaO2% (BldA) [Mass fraction]95 %DO Charan Casey Work Phone: [facility]10-22-2024 10:28-0400 Systolic blood agjrzlhq385 mm[Hg]DO Charan Casey Work Phone: [address] [place], [place] [address]10-22-2024 09:50-0400 Inhaled oxygen flow rate3 L/Dean Casey Work Phone: [facility]10-22-2024 08:38-0400 Body uvaroo851.18 cmDO Charan Casey Work Phone: [facility]10-22-2024 08:38-0400 Body zotlmt471.95 kgDO Charan Casey Work Phone: [facility]09-26-2024 08:35-0400 Body dxunth188.2 cmRosalinda Torres MD Work Phone: [facility]09-26-2024 08:35-0400 Body mass index (BMI) [Ratio]37.75 kg/g6HfxtciRosalinda Torres MD Work Phone: [facility]09-26-2024 08:35-0400 Body oxjexl972.32 kgRosalinda Torres MD Work Phone: [facility]09-26-2024 08:35-0400 Diastolic blood fbihqlok71 mm[Hg]Rosalinda Torres MD Work Phone: [facility]09-26-2024 08:35-0400 Heart rate80 /Aleida Torres MD Work Phone: [facility]09-26-2024 08:35-0400 Systolic blood xhqucsle925 mm[Hg]Rosalinda Torres MD Work Phone: [facility]07-10-2024 15:44-0400 Body .18 cmDO Charan Casey Work Phone: [facility]07-10-2024 15:44-0400 Body mass index (BMI) [Ratio]37 kg/m2DO Charan Casey Work Phone: [facility]07-10-2024 15:44-0400 Body irxlpf355.5 kgDO Charan Casey Work Phone: [facility]07-10-2024 15:44-0400 Diastolic blood tqtkztdu05 mm[Hg]DO Charan Casey Work Phone: [facility]07-10-2024 15:44-0400 Heart rate95 /Dean Casey Work Phone: [facility]07-10-2024 15:44-0400 SaO2% (BldA) [Mass fraction]96 %DO Charan Casey Work Phone: [facility]07-10-2024 15:44-0400 Systolic blood mm[Hg]DO Charan Casey Work Phone: [facility]07-02-2024 11:30-0400 Diastolic blood oixuxyvj68 mm[Hg]DO Charan Casey Work Phone: [facility]07-02-2024 11:30-0400 Heart rate68 /minDO Charan Casey Work Phone: [address] [place], [place] [address]07-02-2024 11:30-0400 Respiratory rate16 /GeovanyO Charan Casey Work Phone: [facility]07-02-2024 11:30-0400 SaO2% (BldA) [Mass fraction]98 %DO Charan Casey Work Phone: [facility]07-02-2024 11:30-0400 Systolic blood zssxaqkq450 mm[Hg]DO Charan Casey Work Phone: [facility]07-02-2024 10:53-0400 Inhaled oxygen flow rate3 L/Dean Casey Work Phone: [address] [place], [place] [address]07-02-2024 10:09-0400 Body tsimoe637.18 cmDO Charan Casey Work Phone: 2(964)[address]07-02-2024 10:09-0400 Body ikdtva272.86 kgDO Charan Casey Work Phone: [facility]04-02-2024 09:31-0400 Body obytiv954.18 cmDO Charan Casey Work Phone: [facility]04-02-2024 09:31-0400 Body mass index (BMI) [Ratio]37.4 kg/m2DO Charan Casey Work Phone: [facility]04-02-2024 09:31-0400 Body kdvraygflac31.8 [degF]DO Charan Casey Work Phone: [facility]04-02-2024 09:31-0400 Body ydcbfi173.4 kgDO Charan Casey Work Phone: [facility]04-02-2024 09:31-0400 Diastolic blood cqnozkfn90 mm[Hg]DO Charan Casey Work Phone: [facility]04-02-2024 09:31-0400 Heart rate88 /Dean Casey Work Phone: [facility]04-02-2024 09:31-0400 Respiratory rate16 /Dean Casey Work Phone: [facility]04-02-2024 09:31-0400 SaO2% (BldA) [Mass fraction]98 %DO Charan Casey Work Phone: [facility]04-02-2024 09:31-0400 Systolic blood dmlodcxv139 mm[Hg]DO Charan Casey Work Phone: [facility]03-25-2024 14:26-0400 Body lmxroz390.2 cmRosalinda Torres MD Work Phone: 4(034)907-[address] [place], [place] 6734403-25-2024 14:26-0400 Body mass index (BMI) [Ratio]37.12 kg/v5AlyxikRosalinda Torres MD Work Phone: 7(171)806-[address] [place], [place] 6734403-25-2024 14:26-0400 Body wzdupj765.5 kgRosalinda Torres MD Work Phone: 8(005)642-[address] [place], [place] 6734403-25-2024 14:26-0400 Diastolic blood ucqaygkv62 mm[Hg]Rosalinda Torres MD Work Phone: 9(097)675-[address] [place], [place] 6734403-25-2024 14:26-0400 Heart rate84 /minRosalinda Torres MD Work Phone: 5(954)874-[address] [place], [place] 6734403-25-2024 14:26-0400 Systolic blood oabdaraw650 mm[Hg]Rosalinda Torres MD Work Phone: 6(849)048-[address] [place], [place] 6734401-31-2024 13:00-0500 Body etkose079.18 cmCharan Casey Other [facility]01-31-2024 13:00-0500 Body mass index (BMI) [Ratio]37.59 kg/t6ZhpzcCharan Casey Other [employer] Other 01-31-2024 13:00-0500Body xfhgiehlent62.3 [degF]Charan Casey Other [facility] [employer] Other 01-31-2024 13:00-0500Body sbbuzo059.86 kgCharan Casey Other [facility]01-31-2024 13:00-0500 Diastolic blood yjzyhaam88 mm[Hg]Charan Casey Other [facility]01-31-2024 13:00-0500 Respiratory rate18 /minCharan Casey Other [employer] Other 01-31-2024 13:00-1273OsN1% (BldA) [Mass fraction]96 % Charan Casey Other [employer] Other 01-31-2024 13:00-0500Systolic blood mm[Hg] Charan Casey Other [facility]11-22-2023 12:45-0500 Body pwwyzc889.18 cmThommarquez Bellamy Other [employer] Other 11-22-2023 12:45-0500Body mass index (BMI) [Ratio] 37.43 kg/h4Wkxhgu Josesito Other [employer] Other 11-22-2023 12:45-0500Body ysuqfpwnstm51.6 [degF]Blas Josesito Other [employer] Other 11-22-2023 12:45-0500Body vhgnej187.41 kgThomas Josesito Other [employer] Other 11-22-2023 12:45-0500Diastolic blood mm[Hg] Blas Bellamy Other [employer] Other 11-22-2023 12:45-0500Respiratory rate18 /minThomas Josesito Other [employer] Other 11-22-2023 12:45-0991PxB8% (BldA) [Mass fraction]96 % Blas Bellamy [facility] [employer] Other 11-22-2023 12:45-0500Systolic blood kozyofxq681 mm[Hg] Blas Bellamy Other [employer] Other 11-07-2023 09:04-0500Diastolic blood ficpygep99 mm[Hg] DO hCaran Casey Work Phone: [facility]11-07-2023 09:04-0500 Heart rate76 /Dean Casey Work Phone: [facility]11-07-2023 09:04-0500 Respiratory rate16 /Dean Casey Work Phone: [facility]11-07-2023 09:04-0500 SaO2% (BldA) [Mass fraction]96 %DO Charan Casey Work Phone: [facility]11-07-2023 09:04-0500 Systolic blood iwzlwgtg659 mm[Hg]DO Charan Casey Work Phone: [facility]11-07-2023 07:01-0500 Body gdiqst666.18 cmDO Charan Casey Work Phone: [facility]11-07-2023 07:01-0500 Body ncirkk325.59 kgDO Charan Csaey Work Phone: [facility]10-17-2023 10:20-0400 Body ixvedk428.18 cmAbdul Sole Other [facility] [employer] Other 10-17-2023 10:20-0400Body mass index (BMI) [Ratio] 37.46 kg/x3Vxtkw Sole Other [employer] Other 10-17-2023 10:20-0400Body xoibanqqsde13.2 [degF]Elpidio Sole Other [employer] Other 10-17-2023 10:20-0400Body nwanhj570.5 kgAbdul Sole Other [facility] Other 10-17-2023 10:20-0400Diastolic blood mm[Hg] Elpidio Sole Other [facility] Other 10-17-2023 10:20-0400Respiratory rate18 /minAbdul Sole Other [employer] Other 10-17-2023 10:20-1142YzN7% (BldA) [Mass fraction]99 % Elpidio Sole Other [employer] Other 10-17-2023 10:20-0400Systolic blood emtyzakh985 mm[Hg] Elpidio Sole Other [employer] Other 10-10-2023 09:00-0400Diastolic blood gwcqogxt32 mm[Hg] DO Charan Casey Work Phone: [facility]10-10-2023 09:00-0400 Heart rate69 /Dean Casey Work Phone: [facility]10-10-2023 09:00-0400 Respiratory rate16 /Dean Casey Work Phone: [facility]10-10-2023 09:00-0400 SaO2% (BldA) [Mass fraction]96 %DO Charan Casey Work Phone: [facility]10-10-2023 09:00-0400 Systolic blood znosjsmq843 mm[Hg]DO Charan Casey Work Phone: [address] [place], [place] [address]10-10-2023 08:17-0400 Inhaled oxygen flow rate3 L/Dean Casey Work Phone: 1(562)[address]10-10-2023 07:21-0400 Body ynsogy969.18 cmDO Charan Casey Work Phone: [facility]10-10-2023 07:21-0400 Body jjrdti773.86 kgDO Charan Casey Work Phone: [facility]09-18-2023 09:30-0400 Body mjussm451.18 cmThomas Felter Other [employer] Other 09-18-2023 09:30-0400Body mass index (BMI) [Ratio] 38.06 kg/y0Cteylv Felter Other [facility] [employer] Other 09-18-2023 09:30-0400Body pysjmu813.22 kgThomas Felter Other [employer] Other 09-12-2023 09:20-0400Body oighqk494.18 cmDale Chatterjee Other [employer] Other 09-12-2023 09:20-0400Body mass index (BMI) [Ratio] 38.06 kg/m2Thierno Chatterjee Other [employer] Other 09-12-2023 09:20-0400Body uvmllt560.22 kgThierno Chatterjee Other [employer] Other 09-12-2023 09:20-0400Diastolic blood jeyhaine74 mm[Hg] Thierno Chatterjee Other [employer] Other 09-12-2023 09:20-0400Systolic blood aseqhffr106 mm[Hg] Thierno Chatterjee Other [employer] Other 09-06-2023 08:15-0400Body oljsxm601.18 cmCharan Casey Other [employer] Other 09-06-2023 08:15-0400Body mass index (BMI) [Ratio] 38.21 kg/v0CkqtpCharan Casey Other [employer] Other 09-06-2023 08:15-0400Body xenrbx656.68 kgCharan Casey Other [employer] Other 09-06-2023 08:15-0400Diastolic blood sxjlvrta39 mm[Hg] Charan Casey Other [employer] Other 09-06-2023 08:15-0400Respiratory rate18 /minCharan Casey Other [employer] Other 09-06-2023 08:15-0194CdC0% (BldA) [Mass fraction]95 % Charan Casey Other [employer] Other 09-06-2023 08:15-0400Systolic blood vtdhiwvk342 mm[Hg] Charan Casey Other [facility] [employer] Other 06-20-2023 12:30-0400Body txzmiy097.18 cmCharan Casey Other [employer] Other 06-20-2023 12:30-0400Diastolic blood ckzunruw60 mm[Hg] Charan Casey Other [employer] Other 06-20-2023 12:30-0400Respiratory rate18 /minCharan Casey Other [employer] Other 06-20-2023 12:30-1182TeF1% (BldA) [Mass fraction]97 % Charan Casey Other [employer] Other 06-20-2023 12:30-0400Systolic blood ryyjreum419 mm[Hg] Charan Casey Other [employer] Other 06-01-2023 10:17-0400Body nwagbv732.18 cmCharan Casey Work Phone: 1(709) 273-4079328-8626KD-Fehee [employer] 250 DO Work Phone: 1(643) 638-494406-01-2023 10:17-0400Body mass index (BMI) [Ratio] Medical Reason Not DoneCharan Casey Work Phone: [id number]-Vfaeo [employer] 250 DO Work Phone: 1(675) 931-339606-01-2023 10:17-0400Diastolic blood lqyjqufv71 mm[Hg] Charan Casey Work Phone: [phone]-Nqina [employer] 250 DO Work Phone: 1(738) 132-390206-01-2023 10:17-0400Heart rate72 /minCharan Casey Work Phone: [phone]-Bcfyx [place] [facility] [employer] 250 DO Work Phone: 1(274) 279-263106-01-2023 10:17-0400Systolic blood tapsaxud278 mm[Hg] Charan Casey Work Phone: mp590-5569KB-Gtmtb [place] [employer] 250 DO Work Phone: 1(497) 455-281005-02-2023 15:30-0400Body .18 cmCharan Casey Other [employer] Other 05-02-2023 15:30-0400Diastolic blood oifzrjvs95 mm[Hg] Charan Casey Other [employer] Other 05-02-2023 15:30-0400Respiratory rate18 /minCharan Casey Other [employer] Other 05-02-2023 15:30-9015NqB5% (BldA) [Mass fraction]98 % Charan Casey Other [facility] Other 05-02-2023 15:30-0400Systolic blood ubesbrru256 mm[Hg] Charan Casey Other [employer] Other 04-11-2023 15:40-0400Body snuzuo244.18 cmAbdul Sole Other [employer] Other 04-11-2023 15:40-0400Diastolic blood naazszkx31 mm[Hg] Elpidio Sole Other [employer] Other 04-11-2023 15:40-0400Respiratory rate16 /minAbdul Sole Other [employer] Other 04-11-2023 15:40-2012IvC8% (BldA) [Mass fraction]99 % Elpidio Sole Other [employer] Other 04-11-2023 15:40-0400Systolic blood eafsdrcl799 mm[Hg] Elpidio Sole Other [employer] Other 04-05-2023 15:00-0400Body .18 cmChrjose Coco Other [employer] Other 04-05-2023 15:00-0400Body mass index (BMI) [Ratio] 37.43 kg/y3Yzimdpdxdos Coco Other [employer] Other 04-05-2023 15:00-0400Body zgnzin951.41 kgChristopher Coco Other [employer] Other 04-05-2023 15:00-0400Diastolic blood zgxoziwt26 mm[Hg] Williamer Coco Other [employer] Other 04-05-2023 15:00-9864JgL0% (BldA) [Mass fraction]98 % Christopher Coco Other [employer] Other 04-05-2023 15:00-0400Systolic blood jubcadhj623 mm[Hg] Christopher Coco Other [employer] Other 10-26-2022 16:00-0400Body esuuyb265.18 cmAbdul Sole Other [employer] Other 10-26-2022 16:00-0400Body mass index (BMI) [Ratio] 37.37 kg/k6Cfqvf Sole Other [employer] Other 10-26-2022 16:00-0400Body .4 [degF]Elpidio Sole Other [employer] Other 10-26-2022 16:00-0400Body .23 kgAbdul Sole Other [employer] Other 10-26-2022 16:00-0400Diastolic blood uowvqccw96 mm[Hg] Elpidio Sole Other [employer] Other 10-26-2022 16:00-0400Respiratory rate16 /minAbdul Sole Other [employer] Other 10-26-2022 16:00-6444XqW5% (BldA) [Mass fraction]98 % Elpidio Sole Other [employer] Other 10-26-2022 16:00-0400Systolic blood gsvbopoc240 mm[Hg] Elpidio Sole Other [employer] Other 10-04-2022 14:00-0400Body atoxea946.18 cmCharan Casey Other [employer] Other 10-04-2022 14:00-0400Body mass index (BMI) [Ratio]37.9 kg/r7Rkdoa Kuns Other [employer] Other 10-04-2022 14:00-0400Body fuamzk215.77 kgCharan Casey Other [employer] Other 10-04-2022 14:00-0400Diastolic blood jxiuhpez88 mm[Hg] Charan Casey [facility] [employer] Other 10-04-2022 14:00-0400Respiratory rate16 /minYeisonheather Casey Other [employer] Other 10-04-2022 14:00-2737EjM8% (BldA) [Mass fraction]97 % Charan Casey Other [employer] Other 10-04-2022 14:00-0400Systolic blood gfpxaaci487 mm[Hg] Charan Casey [facility] [employer] Other 08-28-2022 19:56-0400Body hhjeba226.18 cmDO Charan Casey Work Phone: [facility]08-28-2022 19:56-0400 Body zqdinywnldw17.1 [degF]DO Charan Casey Work Phone: [facility]08-28-2022 19:56-0400 Body esoary888.55 kgDO Charanheather Masseybryn Work Phone: [facility]08-28-2022 19:56-0400 Diastolic blood xlidlqii10 mm[Hg]DO Charanheather Masseybryn Work Phone: [facility]08-28-2022 19:56-0400 Heart rate89 /minDO Charan Casey Work Phone: [facility]08-28-2022 19:56-0400 Respiratory rate20 /minDO Charan Casey Work Phone: [facility]08-28-2022 19:56-0400 SaO2% (BldA) [Mass fraction]98 %DO Charan Casey Work Phone: [facility]08-28-2022 19:56-0400 Systolic blood msfomrua844 mm[Hg]DO Charan Casey Work Phone: [facility]06-09-2022 08:51-0400 Body hncvfe994.18 cmCharan Casey Work Phone: 1(141) [phone]-Ypztj [facility] 250 DO Work Phone: 1(426) 132-764606-09-2022 08:51-0400Body mass index (BMI) [Ratio] 38.06 kg/r1Twnzhheather Casey Work Phone: 1(902) [phone][facility] Work Phone: 1(842) 167-988006-09-2022 08:51-0400Body surface area Derived from formula2.2 h3Offidheather Casey Work Phone: 1(567) [phone]-[facility]aw[facility] [place] [facility] DO Work Phone: 1(436) 290-181206-09-2022 08:51-0400Body hpseor504.22 kgCharan Dani Casey Work Phone: 1(629) [phone]-Ybuud [facility] 250 DO Work Phone: 1(907) 158-527706-09-2022 08:51-0400Diastolic blood kixjcyhm10 mm[Hg] Charan Dani Casey Work Phone: 1(859) [phone]-Uowbr [facility] 250 DO Work Phone: 1(543) [phone] 08:51-0400Heart rate72 /minCharan Louise Jacinto Work Phone: 1(914) [phone]-Picdl [facility] 250 DO Work Phone: 1(235) [phone] 08:51-0400Systolic blood fanswiwi784 mm[Hg] Charan Louise Jacinto Work Phone: 1(536) [phone][facility] 250 DO Work Phone: 1(372) [phone] 17:00-0400Body jhzomq091.18 cmChristcalderon Coco Other [employer] Other 06-01-2022 17:00-0400Body mass index (BMI) [Ratio] 38.52 kg/g0Sjfijcqkdaz Coco Other [employer] Other 06-01-2022 17:00-0400Body wsohbictawp46.1 [degF] Christbryoner Coco Other [employer] Other 06-01-2022 17:00-0400Body avqood487.59 kgChristopher Coco Other [employer] Other 06-01-2022 17:00-0400Diastolic blood mbsxydwv65 mm[Hg] Christbryoner Coco Other [employer] Other 06-01-2022 17:00-4917XyU6% (BldA) [Mass fraction]97 % Christopher Coco Other [employer] Other 06-01-2022 17:00-0400Systolic blood rlubvqpf994 mm[Hg] Christbryoner Coco Other [employer] Other 05-16-2022 11:30-0400Body acbkoy221.18 cmCharan Casey Other [employer] Other 05-16-2022 11:30-0400Body mass index (BMI) [Ratio] 38.52 kg/u5FdebaCharan Casey Other [employer] Other 05-16-2022 11:30-0400Body ydvjku752.59 kgCharan Casey Other [employer] Other 05-16-2022 11:30-0400Diastolic blood wcanjajn13 mm[Hg] Charan Casey Other [employer] Other 05-16-2022 11:30-0400Respiratory rate16 /minCharan Casey Other [employer] Other 05-16-2022 11:30-0054EbH0% (BldA) [Mass fraction]99 % Charan Casey Other [employer] Other 05-16-2022 11:30-0400Systolic blood mm[Hg] Charan Casey Other [employer] Other 03-24-2022 17:00-0400Body mass index (BMI) [Ratio] 38.56 kg/z7Njrlm Sole Other [employer] Other 03-24-2022 17:00-0400Body cskrawajnkr29.2 [degF]Elpidio Sole Other [employer] Other 03-24-2022 17:00-0400Body .68 kgAbdul Sole Other [employer] Other 03-24-2022 17:00-0400Diastolic blood zdfxsgav83 mm[Hg] [facility] [employer] Other 03-24-2022 17:00-0400Respiratory rate18 /minAbdul Sole [facility] [employer] Other 03-24-2022 17:00-6400HjB1% (BldA) [Mass fraction]98 % Elpidio [facility]ole [facility] [employer] Other 03-24-2022 17:00-0400Systolic blood cjwfygoa940 mm[Hg] Elpidio [facility]ole [facility] [employer] Other 03-24-2022 12:28-0400Body ficjly137.18 cmCharan Dani Casey Work Phone: [phone]-Levrk [employer] 250 DO Work Phone: 1(652) 516-682403-24-2022 12:28-0400Body mass index (BMI) [Ratio] 38.37 kg/o3Vlemz Dani Masseybryn Work Phone: [phone]-Wjzib [employer] 250 DO Work Phone: 1(759) 499-168003-24-2022 12:28-0400Body surface area Derived from formula2.2 a7Qlnco Dani Casey Work Phone: [phone]-Jjnha [employer] 250 DO Work Phone: 1(663) 310-177403-24-2022 12:28-0400Body yknacn885.13 kgCharan Casey Work Phone: [phone]-Vqygg [employer] 250 DO Work Phone: 1(874) 785-754503-24-2022 12:28-0400Diastolic blood vaxzoevf43 mm[Hg] Charan Casey Work Phone: [phone]-Gevka [employer] 250 DO Work Phone: 1(660) 456-252803-24-2022 12:28-0400Heart rate72 /minCharan Casey Work Phone: mp271-1225XT-Kyhtx [employer] 250 DO Work Phone: 1(883) 410-666103-24-2022 12:28-0400Systolic blood mm[Hg] Charan Casey Work Phone: [phone]-Ebscb [employer] 250 DO Work Phone: 1(452) 222-778903-11-2022 09:45-0500Body utbduu562.18 cmCharan Casey Other [employer] Other 03-11-2022 09:45-0500Body mass index (BMI) [Ratio] 38.27 kg/s2VwipjCharan Casey Other [employer] Other 03-11-2022 09:45-0500Body zxbriz973.86 kgCharan Casey Other [employer] Other 03-11-2022 09:45-0500Diastolic blood hgnmzzda33 mm[Hg] Charan Casey Other [employer] Other 03-11-2022 09:45-0500Respiratory rate18 /minCharan Casey Other [employer] Other 03-11-2022 09:45-4476ZsZ1% (BldA) [Mass fraction]95 % Charan Casey Other [employer] Other 03-11-2022 09:45-0500Systolic blood vaeawdny440 mm[Hg] Charan Casey Other [employer] Other 02-01-2022 17:20-0500Body glilds439.18 cmDayudi Chatterjee Other [employer] Other 02-01-2022 17:20-0500Body mass index (BMI) [Ratio] 38.84 kg/m2Dale Chatterjee Other [employer] Other 02-01-2022 17:20-0500Body opjcns539.49 kgDale Chatterjee Other [employer] Other 01-04-2022 15:00-0500Body wfndry136.18 cmYeisonheather Casey Other [employer] Other 11-02-2021 17:15-0400Body mvxqoz901.18 cmTjeb Ortiz Other [employer] Other Encounters Encounter DateEncounter TypeCare ProviderFacilityStart: 10-11-2025 End: 05-50-2613Nztqoohbl encounterAlllucia Munroe DO Work Phone: [facility] 230Comment on above: Medication QuestionStart: 07-27-2025 End: 76-65-7344Xuqity flowsheetShaina Munroe DO Work Phone: [facility] 230Start: 07-27-2025 End: 04-00-1814Uhrvik flowsheetShaina Munroe DO Work Phone: [facility] 230Start: 07-27-2025 End: 92-38-2660Iqfyek outpatient visit 25 minutesAlllucia Munroe DO Work Phone: [facility] 230Comment on above:Type 2 diabetes mellitus [...] index (BMI) of35.0 to 35.9 in adult ([facility]-HCC)Start: 07-27-2025 End: 43-97-7191upkiqczqfgSNBJYFQ M PETZNICKNot AvailableStart: 07-12-2025 End: 86-01-2947wsjjngmfbtBdydb Kuns DO Work Phone: [facility] Work Phone: Start: 07-12-2025 End: 04-32-5678Dohdplb encounter procedureCharan Louise DO-[facility] Work Phone: Start: 80-72-3780Xxv-patient / Non-visitMojunito Lyons MD-[facility] Work Phone: Start: 95-07-8612Wlt-patient / Non-visitMojunito Lyons MD-[facility] Work Phone: Start: 70-80-2630Vki-patient / Non-visituGstavo Cuevas DO -[facility] Work Phone: Start: 06-21-2025 End: 23-49-6748ofedwcecgiRtvsz Kuns DO Work Phone: [facility] Work Phone: Start: 06-21-2025 End: 29-95-0358Whzupmz encounter procedureBlas Louise MD-[facility] Work Phone: Start: 21-94-9183Eao-patient / Non-visitBlas Louise MD-[facility] Work Phone: Start: 06-14-2025 End: 92-64-9362gpitaaosvyYxotm Kuns DO Work Phone: [facility] Work Phone: Start: 06-14-2025 End: 21-91-4628Ixxfxqa encounter procedureBlas Louise MD-[facility] Work Phone: Start: 06-05-2025 End: 15-24-0868Skdieov encounter procedurePelizbeth [facility] MS-[facility]-Ray [facility] CtrStart: 06-05-2025 End: 33-27-0154owhgsoaadaGwkbr Kuns DO Work Phone: [facility] Work Phone: Start: 05-31-2025 End: 44-23-6659cnjcykftmmJnjum Kuns DO Work Phone: [facility] Work Phone: Start: 05-31-2025 End: 50-47-0553Sbcddrz encounter procedureBlas Louise MD-[facility] Work Phone: Start: 05-15-2025 End: 50-75-5784Zxvofy outpatient visit 25 minutesAlllucia Munroe DO Work Phone: [facility] 230Comment on above:Type 2 diabetes mellitus with [...] index (BMI) of35.0 to 35.9 in adult ([facility]-HCC)Start: 05-15-2025 End: 08-78-0277hhrvmemkbnEWSHXIA M PETZNICKNot AvailableStart: 03-06-2025 End: 91-93-7541zbdsqhlwntSsqru Kuns DO Work Phone: [facility] Work Phone: Start: 03-06-2025 End: 05-44-0166Evtbwsx encounter procedureBryan Kuns DO Work Phone: [facility] Family [facility] Work Phone: Start: 02-16-2025 End: 58-12-4119oyfdcbxlyuWkzmr Kuns DO Work Phone: [facility] Work Phone: Start: 02-16-2025 End: 94-19-6476Guwnmhf encounter procedureBryheather Masseys DO Work Phone: [facility]ician Group-[facility] Work Phone: Start: 02-14-2025 End: 83-15-8671qxyzrbtphkFWIKDXIAri William AvailableStart: 68-92-6215Qcl- patient / Non-visitBryheather Masseys DO Work Phone: [facility] Work Phone: Start: 02-01-2025 End: 99-34-5506kordfqgdddMygsp Kuns DO Work Phone: [facility] Work Phone: Start: 02-01-2025 End: 34-77-8786Ppmqmay encounter procedureBryheather Masseys DO Work Phone: [facility] Work Phone: Start: 01-31-2025 End: 26-53-6492kbroyftgufQvmrt Kuns DO Work Phone: [facility] Work Phone: Start: 01-31-2025 End: 16-03-0906Bdqpksmyma RecurringBryan Kuns DO Work Phone: [facility]-Physical Therapy [place]Start: 23-23-6780Xqfotnrrwp RecurringBryan Kuns DO Work Phone: [facility]-Physical Therapy [place]Start: 01-26-2025 End: 59-31-4483hktmxhucgiEdjpy Kuns DO Work Phone: [facility] Work Phone: Start: 01-26-2025 End: 63-84-6848Nrwnvnb encounter procedureBryheather Masseys DO Work Phone: [facility] Work Phone: Start: 36-71-9591Doqugncnlj RecurringBryan Brysons DO Work Phone: [facility]-Physical Therapy [place]Start: 01-23-2025 End: 74-74-8369Povghoe encounter procedureBryheather Brysons DO Work Phone: [facility]-MRI [address] Closed Work Phone: Start: 01-23-2025 End: 88-42-5829gklxamxlbdTntod Kuns DO Work Phone: [facility] Work Phone: Start: 01-18-2025 End: 29-32-1873bxclplxxmiWyife Kuns DO Work Phone: [facility] Work Phone: Start: 01-18-2025 End: 59-25-3945Wxsdcdm encounter procedureYeisonheather Brysons DO Work Phone: [facility] Work Phone: Start: 58-26-5744Osljvcaglg RecurringCharan Masseys DO Work Phone: [facility]-Physical Therapy [place]Start: 01-09-2025 End: 58-82-6651Wvzrnwxdd encounterShaina Munroe DO Work Phone: [facility] 230Start: 82-17-2970Pnf-patient / Non-visitBryheather Casey DO Work Phone: [facility]Fa[facility] Work Phone: Start: 01-09-2025 End: 03-04-6761savputirsyYykmx Brysons DO Work Phone: [facility] Work Phone: Start: 01-09-2025 End: 78-72-1727Swykvcw encounter procedureBryan Brysons DO Work Phone: [facility] Work Phone: Start: 89-18-0639Sgzsbgrcvy RecurringBryan Brysons DO Work Phone: [facility]-Physical Therapy [place]Start: 12-29-2024 End: 43-27-2585lcamedakmkTafvs Kuns DO Work Phone: [facility] Work Phone: Start: 12-29-2024 End: 29-16-8258Bsvasvw encounter procedureBryan Brysons DO Work Phone: [facility] Work Phone: Start: 12-26-2024 End: 49-99-5320nuaikbnrwrYrbwr Kuns DO Work Phone: [facility] Work Phone: Start: 12-26-2024 End: 85-74-8006Slfqixt encounter procedureBryan Brysons DO Work Phone: [facility] Physician [facility][Note 3] Pain Mgmt [facility] Work Phone: Start: 33-20-7290Vzyanxbzst RecurringBryan Brysons DO Work Phone: [facility]-Physical Therapy [place]Start: 12-09-2024 End: 39-85-4857bwsgibbxwsQyasz Kuns DO Work Phone: [facility] Work Phone: Start: 12-09-2024 End: 30-80-8312Xjyufzj encounter procedureCharan Masseybryn DO Work Phone: [facility] Physician Group-[facility] Work Phone: Start: 12-08-2024 End: 76-57-4527Haxeapp encounter procedureCharan Casey DO Work Phone: [facility]-X-Ray [facility] CtrStart: 12-08-2024 End: 40-06-5060etytsyayukGgjui Kuns DO Work Phone: [facility] Work Phone: Start: 29-28-0542Qnhohqrrci RecurringBryheather Casey DO Work Phone: [facility]-Physical Therapy [place]Start: 61-55-2593Fnu-patient / Non-visitYeisonheather Casey DO Work Phone: [facility] Work Phone: Start: 2024 End: 23-18-3880Mpfnxlizo to same day surgery centerCharan Casey DO Work Phone: [facility]-Digestive Health Work Phone: Start: 2024 End: 76-08-8726pjyrkyaurjDeaocu FelterFacility:[facility] Start: 10-25-2024 End: 81-61-9332Plnpbpt encounter procedureCharan Masseybryn DO Work Phone: [facility] Work Phone: Start: 10-25-2024 End: 74-88-7484bhpkfdexovGhttc A BaileyFacility:[facility] Hospitaltart: 10-19-2024 End: 97-75-6622drvexziwilTubdm Kuns DO Work Phone: [facility] Work Phone: Start: 10-19-2024 End: 94-10-4491Aiuimnu encounter procedureCharan Casey DO Work Phone: [employer] [facility] Work Phone: Start: 10-17-2024 End: 45-50-1679Buqzbx outpatient visit 25 minutesAlllucia Carmen Acevessebastian DO [...] to 39.9 in adult (CMS/HCC)Start: 10-17-2024 End: 56-14-4342oqppfxjrckBNWWSSG Carmen MUNROENot AvailableStart: 65-17-4802Tcw- patient / Non-visitDO Charan Casey Work Phone: [facility] Work Phone: Start: 09-20-2024 End: 75-66-4623Xdluxpszo to same day surgery centerDO Charan Casey Work Phone: [facility]-Digestive Health Work Phone: Start: 09-20-2024 End: 38-40-5687zpequopwnwDT Charan Casey Work Phone: [facility] Work Phone: Start: 13-37-0785Vda-patient / Non-visitDO Charan Casey Work Phone: [employer] [facility] [place] Work Phone: Start: 09-12-2024 End: 84-89-1020cunhiduqrzCI Charan Casey Work Phone: [facility] Work Phone: Start: 09-12-2024 End: 75-03-6766Ayyktqi encounter procedureDO Charan Casey Work Phone: [facility] Physician Group-[facility] Work Phone: Start: 09-07-2024 End: 76-67-6481Acgsvac encounter procedureDO Charan Casey Work Phone: [facility] Work Phone: Start: 09-07-2024 End: 25-21-1682nmadnxrzgiMD Bryan Kuns Work Phone: [facility] Work Phone: Start: 09-02-2024 End: 92-46-5611yvcvnpaihuTamux KunsFacility:[facility] Start: 49-80-0788Aknymcgmet RecurringDO Charan Casey Work Phone: [facility]-Physical Therapy [place]Start: 08-25-2024 End: 20-61-1183Cernji outpatient visit 25 minutesRosalinda Torres MD Work Phone: uh [facility] on above:Coronary artery disease, unspecified vessel or lesion type, unspecified whether angina present, unsp ecified whether [place] or transplanted heart; Elevated coronary artery calcium [...] unspecified whether serious comorbidity presentStart: 06-13-2024 End: 95-28-6346loutdqlnagZF Bryan Kuns Work Phone: [facility] Work Phone: Start: 06-13-2024 End: 64-48-3440Kwrxigs encounter procedureDO Charan Casey Work Phone: [facility] Work Phone: Start: 06-08-2024 End: 76-28-8086btnjvbngsaFD Charan Casey Work Phone: [facility] Work Phone: Start: 06-08-2024 End: 11-27-6452Ouucuni encounter procedureDO Charan Casey Work Phone: [facility] Sleep Lab Work Phone: Start: 93-45-0400Xjn-patient / Non-visitDO Charan aCsey Work Phone: [facility] Work Phone: Start: 05-31-2024 End: 04-29-8658Udjwtbgqe to same day surgery centerDO Charan Casey Work Phone: [facility]-Digestive Health Work Phone: Start: 05-31-2024 End: 99-23-6165crxdtebeklYG Charan Casey Work Phone: [facility] Work Phone: Start: 05-23-2024 End: 56-62-1986molmokvupiDE Charan Casey Work Phone: [facility] Work Phone: Start: 05-23-2024 End: 92-10-0854Mhpiflp encounter procedureDO Charan Casey Work Phone: [facility] Pain Management [facility] Work Phone: Start: 39-22-9790Aou-patient / Non-visitDO Charan Casey Work Phone: [facility] [place] Work Phone: Start: 17-28-9395Ocf-patient / Non-visitDO Charan Casey Work Phone: [facility] Family [facility] [place] Work Phone: Start: 39-38-4899Sxy-patient / Non-visitDO Charan Casey Work Phone: [facility] Work Phone: Start: 03-17-2024 End: 40-02-4044fcjodlyzrmAB Charan Casey Work Phone: [facility] Work Phone: Start: 03-17-2024 End: 65-79-0461Uvppjvh encounter procedureDO Charan Casey Work Phone: [facility] Pain Management [facility] Work Phone: Start: 03-05-2024 End: 34-59-7344mpldnayinrCA Charan Casey Work Phone: [facility] Work Phone: Start: 03-05-2024 End: 99-71-4541Javimmx encounter procedureDO Charan Casey Work Phone: [facility] [place] Work Phone: Start: 03-01-2024 End: 28-58-7013fnumcrzrotMG Charan Casey Work Phone: [facility] Work Phone: Start: 03-01-2024 End: 96-97-0242Fzqesvw encounter procedureDO Charan Casey Work Phone: [facility] Nephrology Work Phone: Start: 02-29-2024 End: 53-68-5129xqmlbljbrwOF Charan Casey Work Phone: [facility] Work Phone: Start: 02-29-2024 End: 84-88-0157Qahbvid encounter procedureDO Charan Casey Work Phone: [facility]art: 96-93-6747Yfc-patient / Non-visitDO Charan Casey Work Phone: [facility] Work Phone: Start: 02-22-2024 End: 67-82-1765jqpvhvyjwdEGSPFT M [facility] AmbulatoryStart: 02-22-2024 End: 53-34-5705Qsytny outpatient visit 25 minutesRosalinda Torres MD Work Phone: [facility] on above:Coronary artery disease, unspecified vessel or lesion type, unspecified whether angina present, unsp ecified whether [place] or transplanted heart (Primary Dx); Essential hypertension; 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; Hyperlipidemia, unspecified hyperlipidemia type; Obstructive sleep apnea syndrome; Class 2 obesity with body mass index (BMI) of 37.0 to 37.9 in adult, unspecified obesity type, unspecified whether serious comorbidity present; Insulin-requiring or dependent type II diabetes mellitus ([facility])Start: 94-84-9863Yjf-patient / Non-visitDO Charan Casey Work Phone: [facility] Work Phone: Start: 97-77-8868Bae-patient / Non-visitDO Charan Casey Work Phone: [facility] Work Phone: Start: 02-04-2024 End: 74-19-3314Ncistnp encounter procedureDO Charan Casey Work Phone: [facility] [facility] Pain Management [facility] Work Phone: Start: 01-11-2024 End: 36-27-2125rmojwnioxzMfidk Kuns Other [employer] Other Start: 33-23-4602Reswkoeam encounterCharan Waters [facility] [place]Start: 12-31-2023 End: 00-95-9719mjbokojqeqPvzod Kuns Other [employer] Other Start: 65-23-4782Ngocjdvlp encounterBryheather Waters [facility] [place]Start: 12-30-2023 End: 51-40-5633Ogtawdh encounter procedureDO Charan Casey Work Phone: [facility]-X-Ray [facility] CtrStart: 12-30-2023 End: 36-40-3484eczjimnsnuLH Charan Casey Work Phone: [facility] Work Phone: Start: 40-69-2239Owvwcp outpatient visit 15 minutes Charan Waters [facility] [place]Start: 12-30-2023 End: 45-84-1744Mafyghm encounter procedureDO Charan Casey Work Phone: [facility] Physician Group-Start: 11-26-2023 End: 57-20-1120kajhmnxpxsGR Charan Casey Work Phone: [facility] Work Phone: Start: 11-26-2023 End: 48-89-6892Evrqzrd encounter procedureDO Charan Casey Work Phone: [facility]-Lab [facility] CenterStart: 11-06-2023 End: 77-55-0768zlvsqwkjucAdyru Kuns Other [employer] Other Start: 68-81-1645Noruwkdya encounterCharan Waters Referral CoordinatorStart: 10-06-9444Timlonbq care educationDaCorey Hospital Care ClinicStart: 21-91-6808Vdcygufni by computer linkDawn [facility] ClinicStart: 11-05-2023 End: 92-31-6121cuenegfqclJH Charan Casey Work Phone: [employer] Other Start: 11-05-2023 End: 40-30-8538Jkfrpgoyfs RecurringDO Charan Casey Work Phone: [facility] Work Phone: Start: 73-45-5634Oikrwsbbvz RecurringDO Charan Casey Work Phone: [facility] Work Phone: Start: 11-03-2023 End: 11-45-4758coczwjqudpUvkvu Kuns Other [employer] Other Start: 52-19-2184Gthiluxwc encounterCharan Waters Family [facility] [place]Start: 10-28-2023 End: 28-11-3627bsmwwgbdtvLknsgf Felter Other [employer] Other Start: 08-51-4462Znoxks outpatient visit 15 minutes Blas Berger Pain Management [place]Start: 62-60-5934Fggecuqtm encounter Blas FelterFPG Pain Management [place]Start: 10-28-2023 End: 00-32-3979Smtozcf encounter procedure Charan Casey Work Phone: [facility] Physician Group-[facility] Work Phone: Start: 10-21-2023 End: 61-76-5305twnhmjhibhKfynjl [place] Other [employer] Other Start: 59-49-5245Pkdvtt outpatient visit 15 minutes [facility] [address] RoadStart: 10-21-2023 End: 46-68-3026Ecbzrgq encounter procedureDO Charan Casey Work Phone: [facility] Physician Group-[facility]gent [facility] [place] Work Phone: Start: 10-19-2023 End: 79-41-6449rkzgbntvwqCbryvh Felter Other [employer] Other Start: 24-11-1032Ojugoazck encounterThomas FelterFPG Pain Management [place]Start: 10-07-2023 End: 14-33-7826qrkumwsrjiQggse Kuns Other [employer] Other Start: 55-07-8617Dwtseydln encounterBryheather CaseyFPG Family Medicine [place]Start: 10-06-2023 End: 09-86-4211Cizrwfslw to same day surgery centerDO Charan Casey Work Phone: [facility]-Digestive Health Work Phone: Start: 10-06-2023 End: 54-94-5944wwyiqpllifLX Bryan Kuns Work Phone: [facility] Work Phone: Start: 09-23-2023 End: 84-88-6325kadhmwohksMitgea Felter Other [employer] Other Start: 24-21-9792Fuuflb outpatient visit 15 minutes Blas FelterFPG Pain Management [place]Start: 09-15-2023 End: 08-04-9784kbwtgtoabgVdlzm Sole Other [employer] Other Start: 63-90-9281Uuccoa outpatient visit 25 minutes Elpidio QadirFPG NephrologyStart: 09-14-2023 End: 95-14-0428rgckgsnpybHN Bryan Kuns Work Phone: [facility] Work Phone: Start: 09-14-2023 End: 43-88-8826Ehcmquz encounter procedureDO Charan Casey Work Phone: [facility]-Lab [facility] CenterStart: 09-08-2023(Procedure) ShortThomas FelterCleveland Clinic [facility] OutPtStart: 09-08-2023 End: 48-39-9151Dgsmoscvh to same day surgery centerDO Charan Casey Work Phone: [facility]-Digestive Health Work Phone: Start: 09-08-2023 End: 89-11-4222rpcrsfvypsKI Charan Casey Work Phone: [facility] Work Phone: Start: 08-25-2023 End: 92-80-8636jjhnbfavltHvpy Asaad Other [employer] Other Start: 62-92-5060Cldlyjhin encounterImasonia TreadwellFPG Referral CoordinatorStart: 08-18-2023 End: 28-73-9178fpxmjaqowtIzsas Kuns Other [employer] Other Start: 16-33-5727Vxajvibwn encounterCharan Waters [facility] [place]Start: 08-17-2023 End: 58-43-1510qcuuqbdtvcIkisbh Felter Other [employer] Other Start: 27-46-5918Hzcwqd outpatient visit 25 minutes Blas Berger [facility] Bone CreekStart: 08-17-2023 End: 66-66-1747Tjbwfru encounter procedureDO Charan Casey Work Phone: [facility] Ortho Start: 41-57-7641Mhusuo outpatient visit 15 minutesDale [facility]Mc[facility] NeurosurgeryStart: 08-11-2023 End: 62-77-8104xrlsfviybjVA Charan Casey Work Phone: [facility] Work Phone: Start: 08-11-2023 End: 26-74-7303Pxgvdlk encounter procedureDO Charan Casey Work Phone: [facility]-X-Ray [facility] CtrStart: 08-05-2023 End: 49-55-5477rafriojhhpKlcxx Kuns Other NoteWagon Other Start: 71-78-5603Djvyin outpatient visit 25 minutes Charan [facility] Cast[place]Start: 07-02-2023 End: 46-10-5087wmoydilavcBecxr Kuns Other NoteWagon Other Start: 35-90-8744Rfeseuivn encounterBryheather Waters [facility] CastaliaStart: 06-08-2023 End: 25-33-3036vpksnkuvwjHV Charan Masseybryn Work Phone: [facility] Work Phone: Start: 06-08-2023 End: 59-46-9482Sbxkkaodbk RecurringDO Charan Casey Work Phone: [facility]: 05-28-2023 End: 37-19-4997vqlbxynabiXddn Fitt Other NoteWagon Other Start: 11-17-2605Csxaxndg care educationDawn Christophet St[facility] Francis Hospitaltart: 70-98-6121Bqptluhccy RecurringDO Charan Casey Work Phone: [facility] Work Phone: Start: 06-75-6991Wuefpn outpatient visit 25 minutes [facility] CastaliaStart: 05-19-2023 End: 15-25-2418dhdikfyjsiOK Charan Casey Work Phone: [facility] Work Phone: Start: 05-19-2023 End: 60-74-2572Fbfbzlc encounter procedureDO Charan Casey Work Phone: [facility]-X-Ray [facility] CtrStart: 05-05-2023 End: 43-53-5076huyhgnphkuCzeqb Kuns Other [employer] Other Start: 33-13-4677Djhnvquvh encounterBryheather DelarosaG Family Medicine CastaliaStart: 53-39-5538Altojd outpatient visit 25 minutesBryheather Casey Work Phone: [phone]-Finvb[address] Work Phone: Start: 01-16-2646xvvxeiygifApDerek Casey Facility:[id number]: 04-13-2023 End: 47-76-7780fnnezdsiksKPWYC D [facility]SEFacility:Z1Guvdj: 04-07-2023 End: 08-32-0369xotnnqmhsrRHLWEE R [facility] CENTERFacility:F6Hqplh: 74-37-4893Wafcfivhi for preprocedural laboratory examinationPETER D [facility] Start: 04-06-2023 End: 37-18-9936dtaeijyaoiLrzfb Kuns Other [employer] Other Start: 93-08-1015Bmwvkpqcq encounterBryheather DelarosaG Family Medicine CastaliaStart: 33-68-4082Rpueyg outpatient visit 25 minutesCharan DelarosaG Family Medicine CastaliaStart: 03-31-2023 End: 95-42-6812apitygpftpEXQWC D [facility] [employer] Other Start: 03-31-2023 End: 99-14-4986Wvyhmhkkx for preprocedural laboratory examinationPETER Sonia CASTROFacility:B8Lorbs: 03-26-2023 End: 10-56-6569lpgyakpwmxNnrbp Kuns Other [facility] [employer] Other Start: 66-38-6276Fknkgsgbm encounterCharan DelarosaG Family Medicine CastaliaStart: 03-23-2023 End: 16-32-0888segzgsyjnbWTJHMP R ZIEBERFacility:V6Lisxg: 03-10-2023 End: 06-27-2620ycnwzyhmytGnyoa Sole Other [facility] [employer] Other Start: 49-85-2490Xyhdwi outpatient visit 25 minutes Elpidio QadirFPG NephrologyStart: 03-06-2023 End: 10-85-6498kefeveaehbGP Charan Casey Work Phone: [facility] Work Phone: Start: 03-06-2023 End: 82-13-2173Yklcygb encounter procedureDO Charan Casey Work Phone: [facility]-Lab [facility] Hospitaltart: 49-14-3349Vuwrns outpatient visit 15 minutesChristopher [facility] SouthStart: 94-54-5387Korribmyg encounterCharan ODOM Family Medicine CastaliaStart: 03-04-2023 End: 18-72-3798drbjqawpwoEE Charan Casey Work Phone: [place] [employer] Other Start: 03-04-2023 End: 76-49-2021Squmfwa encounter procedureDO Charan Casey Work Phone: [facility]-Sleep Lab Work Phone: Start: 03-03-2023 End: 65-98-8923jiytuleendGUKAYM R ZIEBERFacility:Z2Vygwb: 02-17-2023 End: 73-50-8323vcnvpxsreyDJRIC V WESTFacility:O2Jxrmy: 02-16-2023 End: 50-48-4361dkcadxagvdJvnxv Kuns Other [employer] Other Start: 36-02-1259Zzktwwnqs encounterBryheather DelarosaG Family Medicine CastaliaStart: 02-05-2023 End: 45-69-1846gqozfuqlctOytdv Kuns Other [facility] [employer] Other Start: 20-46-6618Rygjktjpn encounterBryheather Waters Family [facility] CastaliaStart: 02-03-2023 End: 17-70-3360adpgkwrpjkJLYTR V WESTFacility:Z6Yeeiv: 01-27-2023 End: 92-14-7838Aevhgvt encounter procedureDO Charan Casey Work Phone: [facility] Work Phone: Start: 01-27-2023 End: 42-41-7373ealybdjwbcFW Bryan Kuns Work Phone: [facility] Work Phone: Start: 20-12-5709Snsfzj Injection one Vaccine (Admin Chg)Renée [facility] Coord[facility] ClinicStart: 01-20-2023 End: 52-30-5503nfaozuvkujADBERU R ZIEBERFacility:O4Bcyqd: 01-19-2023 End: 09-35-7217krujyaqknmLtuup Kuns Other [facility] [employer] Other Start: 58-24-5101Ifrrhkoxu encounterYeisonheather DelarosaG Family Medicine CastaliaStart: 12-29-2022 End: 00-15-9902fosaowjpirCBDRXB R ZIEBERFacility:I1Bhxyb: 39-32-1826Ubeoamcwa for preprocedural cardiovascular examinationPETER D [facility] HospitalStart: 02-83-2241Tvxsbpxcx for preprocedural laboratory examinationPETER D [facility] HospitalStart: 12-23-2022 End: 11-49-6026bmopjfceqlKXTDG D [facility]Facility:I9Efkvv: 12-23-2022 End: 76-03-4189Bquqturcl for preprocedural cardiovascular examinationPETER D [facility]SEFacility:C8Qynmb: 11-26-2022 End: 97-90-5958lialbeodpkDTYTW V WESTFacility:J0Cyahd: 11-12-2022 End: 06-48-1547ozjwdbearkDFJWRP R SHAKIRAERFacility:Q0Oryqn: 71-65-6226tyimrqphqu Dr. Charan CaseyFacility:[address]Whpzj: 10-28-2022([facility] FCC Injection Eliud [facility]Blue [facility] Coordinated Care ClinicStart: 10-28-2022 End: 72-03-3149ivvxhsmficCY Bryan Kuns Work Phone: [facility] Work Phone: Start: 10-28-2022 End: 99-42-6500Yafdiir encounter procedureDO Charan Casey Work Phone: [facility]-[place] for Coordinated CareStart: 10-16-2022([facility] C Vac) [facility] Covid VaccineDaUAB [facility] Coordinated Care ClinicStart: 10-16-2022([facility]) [facility] InjectionDawn [facility] Coordinated Care ClinicStart: 76-55-2394Gyafcxlku encounterAbdul Sole FPG NephrologyStart: 10-16-2022 End: 55-11-0636wkilopmwvnKE Bryan Kuns Work Phone: [place] [employer] Other Start: 10-16-2022 End: 32-36-5983Lfvmlnk encounter procedureDO Charan Casey Work Phone: [facility] for Coordinated CareStart: 10-15-2022 End: 40-02-3703tgtyjuqdpbRY Charan Casey Work Phone: [facility] Work Phone: Start: 10-15-2022 End: 12-02-4640Objfzyv encounter procedureDO Charan Casey Work Phone: [facility]-MRI Strub RdStart: 10-13-2022 End: 51-40-9446wqdaesrfopYA Charan Casey Work Phone: [facility] Work Phone: Start: 10-13-2022 End: 78-48-0033Kyqffms encounter procedureDO Charan Casey Work Phone: [facility]-MRI Str[address] RdStart: 09-24-2022 End: 27-69-7353eeqvddwrooZfnjb Sole Other [employer] Other Start: 12-21-8996Xxbsmq outpatient visit 25 minutes Elpidiorohan [facility] Cleo SpringsStart: 09-02-2022 End: 78-53-6784dgwcjzvutqThqir Kuns Other [employer] Other Start: 89-04-6088Wghbzf outpatient visit 25 minutes Charan Waters [facility] [place]Start: 08-13-2022 End: 58-38-6040Vttzcxb encounter procedureDO Charan Casey Work Phone: [facility]-Lab [facility] Hospitaltart: 08-07-2022 End: 48-20-3918cshadbwmjiTfuyc Kuns Other [employer] Other Start: 09-69-2639Ovybgpbbn encounterCharan Waters [facility] CastaliaStart: 07-27-2022 End: 33-41-2111Hdzinbnmx department patient visitDO Charan Casey Work Phone: [facility]-Emergency RoomStart: 07-16-2022 End: 37-79-7640hpjjgfepxuWdlmt Kuns Other [facility] [employer] Other Start: 36-75-1074Fnweyeayt encounterBryheather Waters [facility] CastaliaStart: 07-02-2022 End: 38-97-2011sigmcuirbrJyckt Kuns Other [facility] [employer] Other Start: 39-01-9645Scnsihqtr encounterCharan DelarosaG Family Medicine CastaliaStart: 32-70-8511Xobksq outpatient visit 25 minutesCharan Casey Work Phone: [phone]-[facility]thxFairmont [facility] 250 DO Work Phone: Start: 04-30-2022 End: 41-50-9201phtinvceqeXsorbmyufay Coco Other [facility] [employer] Other Start: 77-15-4172Jjgvhm outpatient visit 10 minutes Federico SepulvedaKettering [facility] Ctr SouthStart: 04-14-2022 End: 08-44-9290vppmljdimrNhrdf Kuns Other [facility] [employer] Other Start: 98-54-1285Zlvium outpatient visit 25 minutes Charan [facility] Cast[place]Start: 04-07-2022 End: 15-29-6174jygaznecotZsavh Kuns Other [facility] [employer] Other Start: 49-90-6366Agugyycmm encounterCharan Waters [facility] Cast[place]Start: 04-02-2022 End: 29-00-6926bugcqyrzvrKswli Kuns Other [facility] [employer] Other Start: 96-21-3456Ulqcbflxh encounterCharan WashingtonG Family Medicine CastaliaStart: 03-31-2022 End: 44-55-1330awcowdakznZhhow Kuns Other [facility] [employer] Other Start: 64-06-0417Rofnuxkwh encounterBryheather WashingtonG Family Medicine CastaliaStart: 07-28-4586VUWRGVXRY, Provider: Rosalinda Torres, Status: Pen, Time: 1:00 PMCharan Masseys Work Phone: [phone]-GqrwhFairmont [facility] and Clinic 250 DO Work Phone: Start: 21-79-8626Rmlyb UpdateCharan Louise Kuns Work Phone: [phone]-DbwjcLakewood Health CenterEast Smethport 250 DO Work Phone: Start: 03-13-2022 End: 69-79-3204rebcihbociYyahn Kuns Other [facility] [employer] Other Start: 17-53-4856Hbeycyzzg encounterCharan WashingtonG Family Medicine CastaliaStart: 00-73-7240Stapy UpdateCharan P Kuns Work Phone: [phone]-JwkvuLakewood Health CenterEast Smethport 250 DO Work Phone: Start: 03-07-2022 End: 22-73-1047cspyibymxfXduw Fitt Other [facility] [employer] Other Start: 45-14-4953Kplxmgrft encounterDapauline Angelo [facility] ClinicStart: 03-04-2022 End: 61-22-6799mkgbxmmpgxDbqpu Kuns Other [facility] [employer] Other Start: 23-25-5025Cozaxqwww encounterBryheather CaseyFPG [facility] CareStart: 02-20-2022 End: 94-01-5016gccvkqgloxVruav Sole Other [employer] Other Start: 81-63-0981Njjznv outpatient visit 25 minutes Elpidio QadirFPG NephrologyStart: 02-10-2022 End: 19-47-7952mgzeiygnrvHbthf Kuns Other [facility] [employer] Other Start: 49-85-2094Mwigvctkc encounterBryheather CaseyFPG Family Medicine [place]Start: 02-07-2022 End: 41-64-7522oweibykkhwQgmli Kuns Other [facility] [employer] Other Start: 01-53-0762Kgdhjx outpatient visit 25 minutes Charan CaseyFPG Family Medicine [place]Start: 02-05-2022 End: 89-89-1555cozfatzfhwYnxqg Kuns Other [employer] Other Start: 63-02-6288Cxdgyjobz encounterBryheather MasseysFPG Family Medicine [place]Start: 01-21-2022 End: 47-29-0935fmcnqrymreUdwbz Kuns Other [facility] [employer] Other Start: 96-13-8209Uioqvakwa encounterBryheather MasseysFPG Family Medicine [place]Start: 12-31-2021 End: 78-48-2921idwsnybqfwYfth Chatterjee Other [employer] Other start: 47-24-2980Chogji outpatient visit 15 minutes Thierno Guillermo [facility] NeurosurgeryStart: 12-07-2021 End: 97-19-5188ekyxcmqpoiJzsjb Kuns Other [facility] [employer] Other Start: 32-78-3812Pczijxrvf encounterCharan Waters [facility] Cast[place]Start: 12-06-2021 End: 62-08-9568dyvyqvwceaCmwnp Kuns Other [employer] Other Start: 83-57-1854Foypewzpv encounterCharan MasseybrynERICRuthie [facility] CareStart: 12-03-2021 End: 21-16-0700msvlloaxxlLnhap Kuns Other [place] [employer] Other Start: 49-72-8070Xmivjl outpatient visit 15 minutes Charan Waters [facility] Cast[place]Start: 10-01-2021 End: 24-83-3177zrhrkhobmfZjffzh Felter Other [facility] [employer] Other Start: 56-69-7864Wsryax outpatient visit 25 minutes Blas [facility] [place] End: 45-07-1224Fbdbgiu encounter statusCharan Dani Casey Work Phone: [phone]-Ntteh [facility] [place] 250 DO Work Phone: Procedures DateProcedureProcedure DetailPerforming ClinicianStart: 74-36-7922Zlksttdz Identification OnlyBryheather Masseys DO Work Phone: Start: 87-81-5455C-ray of both feetCharan Masseys DO Work Phone: Start: 79-03-0771Gdklhgkpeh glycosylated t1qIqfnymz M Petsebastian DO Work Phone: Start: 60-29-0594WTQ of right shoulderYeisonheather Brysons DO Work Phone: Start: 71-90-9959VGM (POC)Charanheather Casey DO Work Phone: Start: 42-84-8269Zdeqf chest X-rayYeisonan Kuns DO Work Phone: Start: 66-71-4778Apblg anesthetic lumbar facet joint nerve blockCharan Casey DO Work Phone: Start: 71-02-9951Vfjxl X-ray of right shoulderCharan Casey DO Work Phone: Start: 78-13-2463Sabpbtxlhv glycosylated l9eZongaxp Carmen Munroe DO Work Phone: Start: 57-37-7567Gdxvm anesthetic sacral epidural blockDO Charan Casey Work Phone: Start: 79-15-1746Dzygryrwy mammography of bilateral breastsDO Charan Casey Work Phone: Start: 11-05-4553Uugapgwsl of local anesthetic into sacroiliac jointDO Charan Casey Work Phone: Start: 67-22-5644DOZ of lumbar spine with contrastDO Charan Casey Work Phone: Start: 64-86-1535Oxxxo cultureDO Charan Casey Work Phone: Start: 64-65-9649Fdoxx chest X-rayDO Charan Casey Work Phone: Start: 45-67-4084Cagxtnv of placement of stent for coronary artery disease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Rosalinda Torres MD Work Phone: Start: 93-13-8123Wfriten of cholecystectomyS/P laparoscopic cholecystectomyAlllucia Munroe DO Work Phone: Start: 71-45-1428Ohfeqwcrw colonoscopyDO Charan Casey Work Phone: Start: 70-34-4849IcwhqjktoynVtcmcd Ibrahim MD Work Phone: Start: 83-30-6159Szyzodbvl of local anesthetic into sacroiliac jointDO Charan Casey Work Phone: Start: 57-61-2421Brxvz X-ray of right hipDO Charan Casey Work Phone: Start: 41-46-2017K-ray of lumbar spine, six views including bending viewsDO Charan Casey Work Phone: Start: 46-47-4795Ufzsg chest X-rayDO Charan Casey Work Phone: Start: 48-85-3463Yiqqhbtdzaq of thoracic spineDO Charan Casey Work Phone: Start: 13-09-5667N-ray of lumbar spine, four or more viewsDO Charan Casey Work Phone: Start: 02-00-2786Lkcfa cultureDO Charan Casey Work Phone: Start: 87-84-9928RZZ of right ankleDO Charan Casey Work Phone: Start: 52-90-4411VQC of right footDO Charan Casey Work Phone: Start: 46-38-9383GQX of left ankleDO Charan Casey Work Phone: Start: 89-21-4785ZAF of left footDO Charan Casey Work Phone: Start: 83-69-9861XU of bilateral feetDO Charan Casey Work Phone: Start: 93-56-8904Yuqoh volume recorder pneumoplethysmographyDO Charan Casey Work Phone: Start: 66-94-8068N-ray of left footDO Charan Casey Work Phone: Arthroplasty of kneeCharan Casey Work Phone: Cardiac catheterizationYeisonan P Brysons Work Phone: Cesarean sectionYeisonan P Brysons Work Phone: CholecystectomyCharan P Brysons Work Phone: History of placement of stent for coronary artery disease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Bryan P MAR Systemss Work Phone: Comment on above:February 2022;History of placement of stent for coronary artery disease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Rosalinda Torres MD Work Phone: History of placement of stent for coronary artery disease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Rosalinda Torres MD Work Phone: Operative procedure on ankleBryan P MAR Systemss Work Phone: Operative procedure on footBryan P MAR Systemss Work Phone: ParathyroidectomyBryan P MAR Systemss Work Phone: Procedure on backBryan P MAR Systemss Work Phone: Procedure on neckBryan P MAR Systemss Work Phone: Total colonoscopyBryan P MAR Systemss Work Phone: Comment on above:30Nov2018; Plan of Treatment DateCare ActivityDetailAuthorStart: 18-92-2985Sehetidxp for malignant neoplasm of colonMiami Valley Hospital: 84-40-6859Eehixkbbjvxa Vaccine: Pediatrics (0 to 5 Years) and At-Risk Patients (6 to 64 Years) (3 - PPSV23 or PCV20)Pneumococcal Vaccine: Pediatrics (0 to 5 Years) and At-Risk Patients (6 to 64 Years) (3 - PPSV23 orPCV20)[facility]: 00-99-6249Alshviafmott Vaccine: Pediatrics (0 to 5 Years) and At-Risk Patients (6 to 64 Years) (3 of 3 - PPSV23 or PCV20)Pneumococcal Vaccine: Pediatrics (0 to 5 Years) and At-Risk Patients (6 to 64 Years) (3 of 3 - PPSV23 or PCV20) [facility]: 10-24-2025 End: 26-99-7874Etfgkln encounter noncpwohp14/25/2025 10:30 AM EST Office Visit [facility] [address] [place] [address] Shaina Munroe, DO [address] [place] [address] [facility] 230 Start: 18-91-3887Wokfhxwg screeningDiabetes: Retinopathy ScreeningNONE HealthcareStart: 08-15-2025 End: 07-18-2457Yofwirq encounter procedureNOMS [facility] 230Start: 11-15-8895EQOLJ- 19 Vaccine ( season)COVID-19 Vaccine ( season)[facility] HealthcareStart: 69-89-8515Txlxqwbfw vaccinationUTAH STATE HOSPITAL HealthcareStart: 07-27-2025 End: 18-05-1039Oppzmth encounter fvuhzjbje23/28/2025 8:15 AM EDT [facility] [address] [place] [address] Shaina Munroe, DO [address] [place] [address] [facility] 230Comment on above:ArrivedStart: 03-28-2025 End: 52-63-2289Sqoxfyw encounter dohmxvpgw81/29/2025 8:50 AM EDT Office Visit [place] [id number] [facility] [address] [place] [address] Rosalinda Torres MD [address] [facility] [address] [place] [address] [facility]: 02-14-2025 End: 79-84-6718Fcihosv encounter wwxidafpn81/18/2025 9:30 AM EDT Office Visit [facility] [address] [place] [phone] Shaina Munroe, DO [address] [place] [address] [facility] 230Start: 27-37-4935TI Shoulder - right WO contrastHarrison Community Hospitaltart: 70-07-2969HQL of right shoulder MR shoulder RT wo [facility]: 01-17-2025 Hemoglobin A1c measurementDiabetes: Hemoglobin F1HEMEQ HealthcareStart: 61-84-9893BwjmjremdHarrison Community Hospitaltart: 84-21-1397DzkzrqayxHarrison Community Hospitaltart: 08-25-2024 End: 54-31-4419Wuwmcxu encounter upezenhzw56/26/2024 8:40 AM EDT Office Visit [place] [address] [facility] [address] [place] [address] Rosalinda Torres MD [address] [facility] [place] [address] [facility]osaStart: 46-30-3713QVCTN-19 Vaccine ()COVID-19 Vaccine ()[facility] Start: 21-85-0448Irjbtfnzg vaccinationInfluenza Vaccine (#1)[facility] Start: 82-32-6062EprttizmuHarrison Community Hospitaltart: 34-35-1193Yzmlgtxi identified in Urine by CultureHarrison Community Hospitaltart: 02-29-2024 Urine cultureUrine CultureHarrison Community Hospitaltart: 10-04-3347NZG, Provider: Rosalinda Torres, Status: Pen, Time: 9:10 AMFUV, Provider: Rosalinda Torres, Status: Pen, Time: 9:10 AMMP-[facility] 250 DO Work Phone: Start: 44-82-3141WluujjwslScci Hospital Lima Start: 57-88-8776NbqxogvnnHarrison Community Hospitaltart: 90-21-5503JBXQH-19 Vaccine ( season)COVID-19 Vaccine ()[facility]Start: 18-15-4304Rqhjcilax vaccinationInfluenza Vaccine (#1)[facility]: 27-91-6230Mwhhvvxr identified in Urine by CultureHarrison Community Hospitaltart: 47-74-3379UKM, Provider: Rosalinda Torrse, Status: Pen, Time: 9:00 AMFUV, Provider: Rosalinda Torres, Status: Pen, Time: 9:00 AMMP-[facility] Stagee-[place] 250 DO Work Phone: Start: 85-10-3729TPxA/Tdap/Td Vaccines (2 - Td or Tdap)DTaP/Tdap/Td Vaccines (2 - Td or Tdap)[facility] Start: 93-72-1255DMGWMCJQG, Provider: Rosalinda Torres, Status: Pen, Time: 1:00 PM SURGNONUH, Provider: Rosalinda Torres, Status: Pen, Time: 1:00 PMMP-[facility] Stagee-[place] 250 DO Work Phone: Start: 60-92-6618CRT, Provider: Rosalinda Torres, Status: Pen, Time: 1:50 PMFUV, Provider: Rosalinda Torres, Status: Pen, Time: 1:50 PMMP-[facility] Stagee-[place] 250 DO Work Phone: Start: 34-02-3062VXX patients and/or patients aged 60+ years (1 - 1-dose 60+ series)RSV patients and/or patients aged 60+ years (1 - 1-dose 60+ series)[facility] DaytonSttruckee: 70-89-2978Cneapkktp for malignant neoplasm of breastMammogramUnClinton Memorial Hospital: 86-86-8966Givozzzzs for malignant neoplasm of cervixNOMS HealthcareStart: 45-66-6810AIvR/Tdap/Td Vaccines (1 - Tdap) DTaP/Tdap/Td Vaccines (1 - Tdap)[facility] DaytonSttruckee: 21-89-3258Jgmcfthwm for malignant neoplasm of cervixUnMercy Health Springfield Regional Medical CenterSttruckee: 96-19-0177Xmwkx screening for proteinDiabetes: Urine Protein ScreeningMiami Valley Hospital: 20-87-0134Gqikodlhb C screening Hepatitis C ScreeningMiami Valley Hospital: 08-11-0448Ciyvolrb foot examinationDiabetes: Foot ExamUnClinton Memorial Hospital: 21-71-6610Emjnynyp screeningDiabetes: Retinopathy ScreeningMiami Valley Hospital: 73-23-4940KBO Vaccines (1 of 1 - Standard series)MMR Vaccines (1 of 1 - Standard series)[facility]: 1960 Hemoglobin A1c measurementDiabetes: Hemoglobin K0YHdhmslqrudClinton Memorial Hospital: 29-27-0083IDX screeningHIV ScreeningMiami Valley Hospital: 05-43-5460Jwiwi panelLipid PanelUnClinton Memorial Hospital: 1960Medicare Annual Wellness (AWV)Medicare Annual Wellness (AWV)NOM HealthcareStart: 1960Medicare Annual Wellness VisitMedicare Annual Wellness Visit (AWV)[facility]: 1960 Screening for malignant neoplasm of colonUnClinton Memorial Hospital: 34-74-5102Vgcsty Adult PhysicalYearly Adult PhysicalUnMercy Health Springfield Regional Medical CenterComprehensive metabolic 2000 panel - Serum or PlasmaScci Hospital LimaMR Lumbar spine WO and W contrast [facility] CenterMR Shoulder - right WO contrastScci Hospital LimaPatient EducationCleveland Clinic [facility] Work Phone: Patient referralCleveland Clinic Marymount Hospital [facility] Work Phone: Renal function 1999 panel - Serum or PlasmaScci Hospital LimaRheumatoid factor [Units/volume] in Serum or Plasma [facility] Immunizations Immunization DateImmunizationNotesCare FwdtqsimNycksuvj51-37-3632lszghw vaccine recombinantDawn Fitt Other [facility]11-29-2022zoster vaccine recombinantAaron LePoire Other [facility]11-17-2022influenza virus vaccine, unspecified formulationDO Charan Casey Work Phone: [facility]11-17-2022influenza, seasonal, injectableRosalinda Torres MD Work Phone: [facility] Work Phone: [phone] SARS-CoV-2 VaccinationRosalinda Torres MD Work Phone: [facility] Work Phone: [phone]-78 Moderna (BIvalent)Renée Fitt Other [facility]11-17-2022influenza, high dose seasonal, preservative-freeDawn Fitt Other [employer] Other [id number], injectable, quadrivalent, preservative freeDawn Fitt Other [employer] Other [id number] COVID-19 Vaccine 100 MCG/0.5ML Intramuscular SuspensionBryheather P Pre[employer] Ltd Work Phone: [facility]10-27-2021Moderna SARS-CoV-2 Booster VaccinationFahadlucia Munroe DO Work Phone: [facility]woodJjbobjvrge82-77-1647oubnfcpa influenza, intradermal, preservative freeBryheather P MAR Systemss Work Phone: [phone]-YsfprRidgeview [facility] 250 DO Work Phone: [phone]-49 Vaccine Moderna - Documentation Purposes OnlyThomas Erastoer Other [facility]12-30-2020Moderna COVID-19 Vaccine 100 MCG/0.5ML Intramuscular SuspensionBryan P Kuns Work Phone: [facility]10-01-2019influenza virus vaccine, unspecified formulationBryan P MAR Systemss Work Phone: [phone]-KwvnwRidgeview [facility] 250 DO Work Phone: [phone], injectable, quadrivalent, preservative freeAllison Petznick DO Work Phone: [facility]-SullivanVrzjpcyzjf85-82-7596maeeparhw, seasonal, injectableThomas Felter Other [facility]10-01-2018influenza, seasonal, injectableThomas Felter Other [facility]10-01-2018influenza, seasonal, injectable, preservative freeAllison Petznick DO Work Phone: noMiss[facility]-SullivanAvmscxvshl71-14-3886wgeotwyms virus vaccine, unspecified formulationDO Charan Casey Work Phone: [facility]01-03-2017influenza, seasonal, injectable, preservative freeBryan P Kuns Work Phone: [phone]-[place] [address] DO Work Phone: [phone]zmakwchzk conjugate vaccine, 13 valent Blas Felter Other [facility]01-03-2017influenza, high dose seasonal, preservative-freeThomas Felter Other [employer] Other [id number], injectable, quadrivalent, preservative freeDawn Fitt Other [employer] Other [id number] polysaccharide vaccine, 23 valentBryan P Kuns Work Phone: [phone]-[facility]okmaFairmont [facility] and [facility] 250 DO Work Phone: [phone]bfzemsidn polysaccharide vaccine, 23 valentBryan P Kuns Work Phone: [facility]10-10-2012influenza virus vaccine, unspecified formulationDO Charan Casey Work Phone: [facility]10-10-2012tetanus toxoid, reduced diphtheria toxoid, and acellular pertussis vaccine, adsorbed Blas Ortiz Other [facility]10-10-2012influenza virus vaccine, split virus (incl. purified surface antigen)Blas Ortiz Other [employer] Other influenza virus vaccine, unspecified formulationCharan Casey Work Phone: [phone]-RxttmFairmont Hospital and Clinic 250 DO Work Phone: Comment on above:2009NEGATED: Highlighted row has not occurred!02-34-1357jxoooppwg, injectable,quadrivalent, preservative free, pediatricThomas Diana Other [employer] Other Payers DatePayer CategoryPayerPolicy [id number] 2024MedicareUNITED HEALTHCARE MEDICARE UNITED HEALTHCARE MEDICARE [id number] 2024-Present [id number] [place], [place] [id number] 2024Medicare (Managed Care)[id number] [id number] 2.16.840.1.510967.3.57[id number] 2.16.840.1.151673.3.57[id number] 2.16.840.1.102919.3.57[id number] 2.16.840.1.799921.3.57[id number] 2.16.840.1.429523.3.57[id number] 2.16.840.1.355295.3.57[id number] 2.16.840.1.734401.3.57[id number] 2.16.840.1.546483.3.57[id number] 2.16.840.1.087828.3.57[id number] 2.16.840.1.945568.3.57[id number] 2.16.840.1.087698.3.57[id number] 2.16.840.1.951765.3.57[id number] 2.16.840.1.465314.3.57[id number] 2.16.840.1.042374.3.57[id number] 2.16.840.1.017602.3.57[id number] 2.16.840.1.458066.3.57[id number] 2.16.840.1.992858.3.57[id number] 2..0.1.860548.3.57[id number] 2.16.840.1.823332.3.57[id number] 2.0.1.560755.19 [id number] Pay [id number] Social History DateTypeDetailFacilityStart: 12-04-2023 End: 78-05-4546Hfjwbkimms caffeine consumptionOccasional caffeine consumption [facility] HealthcareComment on above:Coffee;Start: 12-04-2023 End: 73-18-8954Isu [facility] HealthcareStart: 07-27-2022 End: 11-09-3297Fcmxndc smoking status NHISNever smoked tobacco (finding) [facility] Hospitaltart: 37-89-0753Dqj Assigned At [facility] CenterFeUniversity [facility] Medical Centertart: 05-19-2023 End: 39-49-9270Xxzqlpn use and exposureSmokeless tobacco non-userAccess Hospital [facility] Work Phone: Start: 12-04-2023 End: 14-14-9135Aehdufe intakeLifetime non-drinker (finding)[facility] Work Phone: Start: 05-16-4978Ntc Assigned At BirthNot on file [facility] Work Phone: Start: 02-12-2024 End: 38-18-3912Qaeddxlh to SARS-CoV-2 (event)Not sureUnMercy Health Springfield Regional Medical CenterStart: 10-19-2024 End: 99-66-7178BawKkwzgy (finding)[facility] you belong to any clubs or organizations such as denominational groups, unions, fraternal or athletic groups, or school groups?YesNOMS HealthcareAre you now , , , , never or living with a partner?MarriedNOMS HealthcareHow often to you have a drink containing alcohol?NeverNOMS Healthcare Start: 58-17-5814Rld many standard drinks containing alcohol do you [...] 05-20-2023 Gender identityIdentifies as female gender (finding)[facility] Medical Equipment Procedure CodeEquipment CodeEquipment Original TextEquipment IdentifierDates Fusion, spine, lumbar, XLIFLATERAL STD 1 LEVEL CONSTRUCTFDAStart: 07-25-2020 Fusion, spine, lumbar, XLIFOrthopaedic bone screw, non-bioabsorbable, non-sterile+[id number] FDAStart: 51-89-3472Rsmjjn, spine, lumbar, XLIFBone- screw internal spinal fixation system, non-sterile+[id number] FDAStart: 77-99-2284Zrkati, spine, lumbar, XLIFSTRATOFUSE DBM 10CCFDAStart: 07-25-2020 Fusion, spine, lumbar, XLIFTIMBERLINE INTERBODYFDAStart: 55-87-3948Edtdcq, spine, lumbar, XLIFSpinal fusion graft kit ()[id number] FDAStart: 26-27-6950Mbdvfj, spine, lumbar, XLIFBone-screw internal spinal fixation system, non-sterile+[id number] FDAStart: 45-19-7434Zuewlu, spine, lumbar, XLIFLATERAL STD 1 LEVEL CONSTRUCTFDA Start: 95-58-3271Mhymgz, spine, lumbar, XLIFSTRATOFUSE DBM 10CCFDAStart: 81-18-4621Txetec, spine, lumbar, XLIFTIMBERLINE INTERBODYFDAStart: 07-25-2020 Fusion, spine, lumbar, XLIFLATERAL STD 1 LEVEL CONSTRUCTFDAStart: 07-25-2020 Fusion, spine, lumbar, XLIFSTRATOFUSE DBM 10CCFDAStart: 88-52-1728Fewhdh, spine, lumbar, XLIFTIMBERLINE INTERBODYFDAStart: 90-46-1012Nzgdjy, spine, lumbar, XLIF LATERAL STD 1 LEVEL CONSTRUCTFDAStart: 75-15-1266Jnoimp, spine, lumbar, XLIF STRATOFUSE DBM 10CCFDAStart: 01-74-2011Qziubm, spine, lumbar, XLIFTIMBERLINE INTERBODYFDAStart: 40-75-3619Cndkvy, spine, lumbar, XLIFLATERAL STD 1 LEVEL CONSTRUCTFDAStart: 56-75-6705Jzblni, spine, lumbar, XLIFSTRATOFUSE DBM 10CCFDA Start: 73-17-2798Vxkpde, spine, lumbar, XLIFTIMBERLINE INTERBODYFDAStart: 47-92-3536Vsueiy, spine, lumbar, XLIFLATERAL STD 1 LEVEL CONSTRUCTFDAStart: 91-37-1040Ofdtkt, spine, lumbar, XLIFSTRATOFUSE DBM 10CCFDAStart: 07-25-2020 Fusion, spine, lumbar, XLIFTIMBERLINE INTERBODYFDAStart: 84-20-3912Oigncl, spine, lumbar, XLIFLATERAL STD 1 LEVEL CONSTRUCTFDAStart: 67-79-4176Zjowys, spine, lumbar, XLIFSTRATOFUSE DBM 10CCFDAStart: 21-65-1987Uvrtiy, spine, lumbar, XLIFTIMBERLINE INTERBODYFDAStart: 76-73-4914Hfwzkk, spine, lumbar, XLIFLATERAL STD 1 LEVEL CONSTRUCTFDAStart: 09-93-0886Pbiexs, spine, lumbar, XLIFSTRATOFUSE DBM 10CCFDAStart: 37-09-8554Yqmsez, spine, lumbar, XLIFTIMBERLINE INTERBODYFDA Start: 15-60-9417Gtledr, spine, lumbar, XLIFLATERAL STD 1 LEVEL CONSTRUCTFDA Start: 18-39-3919Ryslaz, spine, lumbar, XLIFSTRATOFUSE DBM 10CCFDAStart: 86-00-7601Dbymhu, spine, lumbar, XLIFTIMBERLINE INTERBODYFDAStart: 07-25-2020 Fusion, spine, lumbar, XLIFLATERAL STD 1 LEVEL CONSTRUCTFDAStart: 07-25-2020 Fusion, spine, lumbar, XLIFSTRATOFUSE DBM 10CCFDAStart: 19-59-3172Fzvklg, spine, lumbar, XLIFTIMBERLINE INTERBODYFDAStart: 02-36-8117Egfqaq, spine, lumbar, XLIF LATERAL STD 1 LEVEL CONSTRUCTFDAStart: 21-09-5709Ruzdoc, spine, lumbar, XLIF STRATOFUSE DBM 10CCFDAStart: 31-10-4319Tbbvxe, spine, lumbar, XLIFTIMBERLINE INTERBODYFDAStart: 70-48-2451Rtnssk, spine, lumbar, XLIFLATERAL STD 1 LEVEL CONSTRUCTFDAStart: 17-11-9420Mjkyvt, spine, lumbar, XLIFSTRATOFUSE DBM 10CCFDA Start: 07-70-8242Wsflgn, spine, lumbar, XLIFTIMBERLINE INTERBODYFDAStart: 66-79-3444Nlvszj, spine, lumbar, XLIFLATERAL STD 1 LEVEL CONSTRUCTFDAStart: 84-80-7843Ngkqbd, spine, lumbar, XLIFSTRATOFUSE DBM 10CCFDAStart: 07-25-2020 Fusion, spine, lumbar, XLIFTIMBERLINE INTERBODYFDAStart: 96-11-5809Sjcmsv, spine, lumbar, XLIFLATERAL STD 1 LEVEL CONSTRUCTFDAStart: 55-73-4105Lllpxt, spine, lumbar, XLIFSTRATOFUSE DBM 10CCFDAStart: 83-82-9790Ctlnhf, spine, lumbar, XLIFTIMBERLINE INTERBODYFDAStart: 19-38-8779Wltyio, spine, lumbar, XLIFLATERAL STD 1 LEVEL CONSTRUCTFDAStart: 63-85-2546Fekqch, spine, lumbar, XLIFSTRATOFUSE DBM 10CCFDAStart: 13-68-2766Qgyxmk, spine, lumbar, XLIFTIMBERLINE INTERBODYFDA Start: 75-52-8274Zuuddb, spine, lumbar, XLIFLATERAL STD 1 LEVEL CONSTRUCTFDA Start: 53-18-3217Ruqmco, spine, lumbar, XLIFSTRATOFUSE DBM 10CCFDAStart: 80-42-0800Dhgfuu, spine, lumbar, XLIFTIMBERLINE INTERBODYFDAStart: 07-25-2020 Fusion, spine, lumbar, XLIFLATERAL STD 1 LEVEL CONSTRUCTFDAStart: 07-25-2020 Fusion, spine, lumbar, XLIFSTRATOFUSE DBM 10CCFDAStart: 22-26-5078Bgbxoc, spine, lumbar, XLIFTIMBERLINE INTERBODYFDAStart: 98-52-5469Majkjh, spine, lumbar, XLIF LATERAL STD 1 LEVEL CONSTRUCTFDAStart: 15-30-2160Ijxlor, spine, lumbar, XLIF STRATOFUSE DBM 10CCFDAStart: 31-85-6539Asqgby, spine, lumbar, XLIFTIMBERLINE INTERBODYFDAStart: 24-40-9189Mequap, spine, lumbar, XLIFLATERAL STD 1 LEVEL CONSTRUCTFDAStart: 57-58-9081Zkbjlc, spine, lumbar, XLIFSTRATOFUSE DBM 10CCFDA Start: 28-59-7461Swdmkj, spine, lumbar, XLIFTIMBERLINE INTERBODYFDAStart: 05-06-7673Kahhwo, spine, lumbar, XLIFLATERAL STD 1 LEVEL CONSTRUCTFDAStart: 98-62-4382Chtamx, spine, lumbar, XLIFSTRATOFUSE DBM 10CCFDAStart: 07-25-2020 Fusion, spine, lumbar, XLIFTIMBERLINE INTERBODYFDAStart: 64-58-5601Ukbcrn, spine, lumbar, XLIFLATERAL STD 1 LEVEL CONSTRUCTFDAStart: 49-62-1821Cohepu, spine, lumbar, XLIFSTRATOFUSE DBM 10CCFDAStart: 77-17-4752Thwxys, spine, lumbar, XLIFTIMBERLINE INTERBODYFDAStart: 92-87-4036Lyivec, spine, lumbar, XLIFLATERAL STD 1 LEVEL CONSTRUCTFDAStart: 55-69-8089Numrms, spine, lumbar, XLIFSTRATOFUSE DBM 10CCFDAStart: 43-32-6465Qtgiau, spine, lumbar, XLIFTIMBERLINE INTERBODYFDA Start: 49-39-4776Forahf, spine, lumbar, XLIFLATERAL STD 1 LEVEL CONSTRUCTFDA Start: 55-15-2557Hjkhmx, spine, lumbar, XLIFSTRATOFUSE DBM 10CCFDAStart: 66-24-7754Oytksc, spine, lumbar, XLIFTIMBERLINE INTERBODYFDAStart: 07-25-2020 Fusion, spine, lumbar, XLIFLATERAL STD 1 LEVEL CONSTRUCTFDAStart: 07-25-2020 Fusion, spine, lumbar, XLIFSTRATOFUSE DBM 10CCFDAStart: 57-89-3650Spzgcp, spine, lumbar, XLIFTIMBERLINE INTERBODYFDAStart: 86-19-9286Dkoqcs, spine, lumbar, XLIF LATERAL STD 1 LEVEL CONSTRUCTFDAStart: 65-09-9730Yuyruq, spine, lumbar, XLIF STRATOFUSE DBM 10CCFDAStart: 94-48-4628Gzqlvs, spine, lumbar, XLIFTIMBERLINE INTERBODYFDAStart: 87-25-8606Yrqcqs, spine, lumbar, XLIFLATERAL STD 1 LEVEL CONSTRUCTFDAStart: 45-12-0144Ychujg, spine, lumbar, XLIFSTRATOFUSE DBM 10CCFDA Start: 75-92-9347Vfowwh, spine, lumbar, XLIFTIMBERLINE INTERBODYFDAStart: 87-00-5533Thnzqk, spine, lumbar, XLIFLATERAL STD 1 LEVEL CONSTRUCTFDAStart: 30-61-0485Dswwgw, spine, lumbar, XLIFSTRATOFUSE DBM 10CCFDAStart: 07-25-2020 Fusion, spine, lumbar, XLIFTIMBERLINE INTERBODYFDAStart: 09-13-0788Shdfjg, spine, lumbar, XLIFLATERAL STD 1 LEVEL CONSTRUCTFDAStart: 68-45-6956Hivbmv, spine, lumbar, XLIFSTRATOFUSE DBM 10CCFDAStart: 70-54-8644Mapqyg, spine, lumbar, XLIFTIMBERLINE INTERBODYFDAStart: 55-15-4813Xibddr, spine, lumbar, XLIFLATERAL STD 1 LEVEL CONSTRUCTFDAStart: 20-66-1161Erpozx, spine, lumbar, XLIFSTRATOFUSE DBM 10CCFDAStart: 11-68-9679Uhzwdu, spine, lumbar, XLIFTIMBERLINE INTERBODYFDA Start: 68-89-6414Gzoagi, spine, lumbar, XLIFLATERAL STD 1 LEVEL CONSTRUCTFDA Start: 30-08-5234Sxmhkv, spine, lumbar, XLIFSTRATOFUSE DBM 10CCFDAStart: 54-64-0503Atwhqj, spine, lumbar, XLIFTIMBERLINE INTERBODYFDAStart: 07-25-2020 Fusion, spine, lumbar, XLIFLATERAL STD 1 LEVEL CONSTRUCTFDAStart: 07-25-2020 Fusion, spine, lumbar, XLIFSTRATOFUSE DBM 10CCFDAStart: 99-65-8458Ucrywh, spine, lumbar, XLIFTIMBERLINE INTERBODYFDAStart: 77-01-2991Xwesks, spine, lumbar, XLIF LATERAL STD 1 LEVEL CONSTRUCTFDAStart: 33-62-7978Dsmiiz, spine, lumbar, XLIF STRATOFUSE DBM 10CCFDAStart: 46-48-5668Bhjcsm, spine, lumbar, XLIFTIMBERLINE INTERBODYFDAStart: 79-87-5168Euyucf, spine, lumbar, XLIFLATERAL STD 1 LEVEL CONSTRUCTFDAStart: 92-61-2439Rrkfrp, spine, lumbar, XLIFSTRATOFUSE DBM 10CCFDA Start: 69-66-1345Inqvfa, spine, lumbar, XLIFTIMBERLINE INTERBODYFDAStart: 09-99-0084Dfvjze, spine, lumbar, XLIFLATERAL STD 1 LEVEL CONSTRUCTFDAStart: 01-96-0803Nsskzh, spine, lumbar, XLIFSTRATOFUSE DBM 10CCFDAStart: 07-25-2020 Fusion, spine, lumbar, XLIFTIMBERLINE INTERBODYFDAStart: 47-80-2790Hzswvr, spine, lumbar, XLIFLATERAL STD 1 LEVEL CONSTRUCTFDAStart: 70-52-7997Nworam, spine, lumbar, XLIFSTRATOFUSE DBM 10CCFDAStart: 38-47-0882Ivtmeh, spine, lumbar, XLIFTIMBERLINE INTERBODYFDAStart: 89-35-2813Guques, spine, lumbar, XLIFLATERAL STD 1 LEVEL CONSTRUCTFDAStart: 63-65-3453Dteozi, spine, lumbar, XLIFSTRATOFUSE DBM 10CCFDAStart: 98-72-0073Fwjojp, spine, lumbar, XLIFTIMBERLINE INTERBODYFDA Start: 94-68-5305Vhdszj, spine, lumbar, XLIFLATERAL STD 1 LEVEL CONSTRUCTFDA Start: 13-65-2249Zkmqqt, spine, lumbar, XLIFSTRATOFUSE DBM 10CCFDAStart: 75-12-7357Nywxlx, spine, lumbar, XLIFTIMBERLINE INTERBODYFDAStart: 07-25-2020 Fusion, spine, lumbar, XLIFLATERAL STD 1 LEVEL CONSTRUCTFDAStart: 07-25-2020 Fusion, spine, lumbar, XLIFSTRATOFUSE DBM 10CCFDAStart: 34-95-2680Lrbkrf, spine, lumbar, XLIFTIMBERLINE INTERBODYFDAStart: 98-94-5342Eonahf, spine, lumbar, XLIF LATERAL STD 1 LEVEL CONSTRUCTFDAStart: 68-63-5220Cwinbv, spine, lumbar, XLIF STRATOFUSE DBM 10CCFDAStart: 93-11-7988Ceabwc, spine, lumbar, XLIFTIMBERLINE INTERBODYFDAStart: 60-06-8803Iguflc, spine, lumbar, XLIFLATERAL STD 1 LEVEL CONSTRUCTFDAStart: 64-48-5407Jyjzhu, spine, lumbar, XLIFSTRATOFUSE DBM 10CCFDA Start: 12-78-4547Cuigwq, spine, lumbar, XLIFTIMBERLINE INTERBODYFDAStart: 75-63-6027Ztjoky, spine, lumbar, XLIFLATERAL STD 1 LEVEL CONSTRUCTFDAStart: 83-54-8450Qvinal, spine, lumbar, XLIFSTRATOFUSE DBM 10CCFDAStart: 07-25-2020 Fusion, spine, lumbar, XLIFTIMBERLINE INTERBODYFDAStart: 28-30-0880Mjuhez, spine, lumbar, XLIFLATERAL STD 1 LEVEL CONSTRUCTFDAStart: 59-56-4494Vhjkca, spine, lumbar, XLIFSTRATOFUSE DBM 10CCFDAStart: 48-59-9130Nldbgy, spine, lumbar, XLIFTIMBERLINE INTERBODYFDAStart: 05-03-9923Gtwkzu, spine, lumbar, XLIFLATERAL STD 1 LEVEL CONSTRUCTFDAStart: 47-00-9937Qexkdk, spine, lumbar, XLIFSTRATOFUSE DBM 10CCFDAStart: 23-78-2561Vjotiw, spine, lumbar, XLIFTIMBERLINE INTERBODYFDA Start: 35-57-3984Gnqnul, spine, lumbar, XLIFLATERAL STD 1 LEVEL CONSTRUCTFDA Start: 72-29-7535Caetrw, spine, lumbar, XLIFSTRATOFUSE DBM 10CCFDAStart: 21-12-9686Otwsnx, spine, lumbar, XLIFTIMBERLINE INTERBODYFDAStart: 07-25-2020 Fusion, spine, lumbar, XLIFLATERAL STD 1 LEVEL CONSTRUCTFDAStart: 07-25-2020 Fusion, spine, lumbar, XLIFSTRATOFUSE DBM 10CCFDAStart: 77-63-3864Xfrjgc, spine, lumbar, XLIFTIMBERLINE INTERBODYFDAStart: 14-42-3749Jumdpj, spine, lumbar, XLIF LATERAL STD 1 LEVEL CONSTRUCTFDAStart: 57-83-2558Rtvhyr, spine, lumbar, XLIF STRATOFUSE DBM 10CCFDAStart: 32-89-1362Xbxxku, spine, lumbar, XLIFTIMBERLINE INTERBODYFDAStart: 21-58-2600Jrumwm, spine, lumbar, XLIFLATERAL STD 1 LEVEL CONSTRUCTFDAStart: 55-70-3397Huibug, spine, lumbar, XLIFSTRATOFUSE DBM 10CCFDA Start: 44-80-3323Vldzis, spine, lumbar, XLIFTIMBERLINE INTERBODYFDAStart: 48-72-519081005658, 28236900Hcaum: 08-11-2013 End: 25-07-0067Otka-eluting coronary artery stent, dsk-gfqnydaapcltm-hhvcyzx-coated()[id number] FDAStart: 54-13-2387Wkhzkri artery closure plug/patch, synthetic polymer()[id number] FDAStart: 26-00-6212Wzp Needle, Diabetic (Ulticare Pen Needle) 31 gauge x 3/16 needleStart: 48-98-5447Fml Needle, Diabetic (Ulticare Pen Needle) 31 gauge x 3/16 needleStart: 05-13-2024 End: 80-41-1699Ddk Needle, Diabetic (Ulticare Pen Needle) 31 gauge x 3/16 needleStart: 78-04-7759Jtq Needle, Diabetic (Ulticare Pen Needle) 31 gauge x 3/16 needleStart: 05-13-2024 End: 31-98-4696Zqe Needle, Diabetic (Ulticare Pen Needle) 31 gauge x 3/16 needleStart: 03-42-0252Xqg Needle, Diabetic (Ulticare Pen Needle) 31 gauge x 3/16 needleStart: 05-13-2024 End: 13-55-9470Hfa Needle, Diabetic (Ulticare Pen Needle) 31 gauge x 3/16 needleStart: 77-96-8287Pnb Needle, Diabetic (Ulticare Pen Needle) 31 gauge x 3/16 needleStart: 05-13-2024 End: 79-87-0260Ghf Needle, Diabetic (Ulticare Pen Needle) 31 gauge x 3/16 needleStart: 79-15-5563Lys Needle, Diabetic (Ulticare Pen Needle) 31 gauge x 3/16 needleStart: 05-13-2024 End: 23-13-6229Nac Needle, Diabetic (Ulticare Pen Needle) 31 gauge x 3/16 needleStart: 04-16-1197Rui Needle, Diabetic (Ulticare Pen Needle) 31 gauge x 3/16 needleStart: 05-13-2024 End: 76-11-0613Bdm Needle, Diabetic (Ulticare Pen Needle) 31 gauge x 3/16 needleStart: 28-21-4064Llz Needle, Diabetic (Ulticare Pen Needle) 31 gauge x 3/16 needleStart: 05-13-2024 End: 11-82-2929Nqi Needle, Diabetic (Ulticare Pen Needle) 31 gauge x 3/16 needleStart: 05-13-2024 End: 90-99-3552Plm Needle, Diabetic (Ulticare Pen Needle) 31 gauge x 3/16 needleStart: 35-68-4724Dlg Needle, Diabetic 31 gauge x 5/16 needleStart: 70-44-6296Rcr Needle, Diabetic (Ulticare Pen Needle) 31 gauge x 3/16 needle Start: 05-13-2024 End: 38-76-1290Jdd Needle, Diabetic (Ulticare Pen Needle) 31 gauge x 3/16 needleStart: 05-13-2024 End: 77-11-5827Bzj Needle, Diabetic 31 gauge x 5/16 needleStart: 09-12-2024 End: 36-52-7439Aes Needle, Diabetic (Ulticare Pen Needle) 31 gauge x 3/16 needleStart: 58-44-8409Qry Needle, Diabetic 31 gauge x 5/16 needleStart: 61-97-6200Scu Needle, Diabetic (Ulticare Pen Needle) 31 gauge x 3/16 needle Start: 05-13-2024 End: 51-36-4148Csb Needle, Diabetic (Ulticare Pen Needle) 31 gauge x 3/16 needleStart: 05-13-2024 End: 82-47-6524Hbd Needle, Diabetic 31 gauge x 5/16 needleStart: 09-12-2024 End: 59-56-0794Dst Needle, Diabetic (Ulticare Pen Needle) 31 gauge x 3/16 needleStart: 53-53-8437Otj Needle, Diabetic 31 gauge x 5/16 needleStart: 43-09-0055Qil Needle, Diabetic (Ulticare Pen Needle) 31 gauge x 3/16 needle Start: 05-13-2024 End: 23-72-4781Wgc Needle, Diabetic (Ulticare Pen Needle) 31 gauge x 3/16 needleStart: 05-13-2024 End: 11-15-8085Ecr Needle, Diabetic 31 gauge x 5/16 needleStart: 09-12-2024 End: 61-02-9059Oza Needle, Diabetic (Ulticare Pen Needle) 31 gauge x 3/16 needleStart: 73-39-0312Dyo Needle, Diabetic 31 gauge x 5/16 needleStart: 42-97-9871Mee Needle, Diabetic (Ulticare Pen Needle) 31 gauge x 3/16 needle Start: 05-13-2024 End: 52-26-8157Lph Needle, Diabetic (Ulticare Pen Needle) 31 gauge x 3/16 needleStart: 05-13-2024 End: 50-54-3338Log Needle, Diabetic 31 gauge x 5/16 needleStart: 09-12-2024 End: 01-23-2723Adc Needle, Diabetic (Ulticare Pen Needle) 31 gauge x 3/16 needleStart: 47-79-3285Zxw Needle, Diabetic 31 gauge x 5/16 needleStart: 06-96-1424Mpq Needle, Diabetic (Ulticare Pen Needle) 31 gauge x 3/16 needle Start: 05-13-2024 End: 31-59-9301Ruc Needle, Diabetic (Ulticare Pen Needle) 31 gauge x 3/16 needleStart: 05-13-2024 End: 27-00-1889Wou Needle, Diabetic 31 gauge x 5/16 needleStart: 09-12-2024 End: 50-39-3795Vku Needle, Diabetic (Ulticare Pen Needle) 31 gauge x 3/16 needleStart: 50-95-5572Tog Needle, Diabetic 31 gauge x 5/16 needleStart: 90-63-3785Nqh Needle, Diabetic (Ulticare Pen Needle) 31 gauge x 3/16 needle Start: 05-13-2024 End: 59-52-0441Fpx Needle, Diabetic (Ulticare Pen Needle) 31 gauge x 3/16 needleStart: 05-13-2024 End: 60-02-8349Vei Needle, Diabetic 31 gauge x 5/16 needleStart: 09-12-2024 End: 50-17-6318Emh Needle, Diabetic (Ulticare Pen Needle) 31 gauge x 3/16 needleStart: 37-10-3523Zwn Needle, Diabetic 31 gauge x 5/16 needleStart: 37-77-7797Efh Needle, Diabetic (Ulticare Pen Needle) 31 gauge x 3/16 needle Start: 05-13-2024 End: 03-34-5041Yuz Needle, Diabetic (Ulticare Pen Needle) 31 gauge x 3/16 needleStart: 05-13-2024 End: 59-43-2128Eug Needle, Diabetic 31 gauge x 5/16 needleStart: 09-12-2024 End: 64-10-5910Mvm Needle, Diabetic (Ulticare Pen Needle) 31 gauge x 3/16 needleStart: 25-77-0466Skv Needle, Diabetic 31 gauge x 5/16 needleStart: 46-77-8536Bdo Needle, Diabetic (Ulticare Pen Needle) 31 gauge x 3/16 needle Start: 05-13-2024 End: 69-79-6939Quu Needle, Diabetic (Ulticare Pen Needle) 31 gauge x 3/16 needleStart: 05-13-2024 End: 38-26-9571Rss Needle, Diabetic 31 gauge x 5/16 needleStart: 09-12-2024 End: 63-15-9197Shu Needle, Diabetic (Ulticare Pen Needle) 31 gauge x 3/16 needleStart: 64-15-4077Bxj Needle, Diabetic 31 gauge x 5/16 needleStart: 89-84-3397Trx Needle, Diabetic (Ulticare Pen Needle) 31 gauge x 3/16 needle Start: 05-13-2024 End: 21-93-1913Bnn Needle, Diabetic (Ulticare Pen Needle) 31 gauge x 3/16 needleStart: 05-13-2024 End: 52-51-1175Ksn Needle, Diabetic 31 gauge x 5/16 needleStart: 09-12-2024 End: 65-58-4178Xvb Needle, Diabetic (Ulticare Pen Needle) 31 gauge x 3/16 needleStart: 14-29-9885Zeu Needle, Diabetic 31 gauge x 5/16 needleStart: 29-24-4665Ovv Needle, Diabetic (Ulticare Pen Needle) 31 gauge x 3/16 needle Start: 05-13-2024 End: 71-50-8141Gsk Needle, Diabetic (Ulticare Pen Needle) 31 gauge x 3/16 needleStart: 05-13-2024 End: 08-53-5248Vzm Needle, Diabetic 31 gauge x 5/16 needleStart: 09-12-2024 End: 46-63-7176Ypu Needle, Diabetic (Ulticare Pen Needle) 31 gauge x 3/16 needleStart: 39-28-0306Tru Needle, Diabetic 31 gauge x 5/16 needleStart: 90-62-6382Sdl Needle, Diabetic (Ulticare Pen Needle) 31 gauge x 3/16 needle Start: 05-13-2024 End: 74-73-2100Hfs Needle, Diabetic (Ulticare Pen Needle) 31 gauge x 3/16 needleStart: 05-13-2024 End: 05-27-6726Sdr Needle, Diabetic 31 gauge x 5/16 needleStart: 09-12-2024 End: 70-32-7686Dgz Needle, Diabetic (Ulticare Pen Needle) 31 gauge x 3/16 needleStart: 74-58-4263Onz Needle, Diabetic 31 gauge x 5/16 needleStart: 21-90-0598Mnu Needle, Diabetic (Ulticare Pen Needle) 31 gauge x 3/16 needle Start: 05-13-2024 End: 99-82-8920Mov Needle, Diabetic (Ulticare Pen Needle) 31 gauge x 3/16 needleStart: 05-13-2024 End: 75-32-3158Euo Needle, Diabetic 31 gauge x 5/16 needleStart: 09-12-2024 End: 98-52-0525Xuu Needle, Diabetic (Ulticare Pen Needle) 31 gauge x 3/16 needleStart: 56-49-9582Efj Needle, Diabetic 31 gauge x 5/16 needleStart: 16-46-4311Llr Needle, Diabetic (Ulticare Pen Needle) 31 gauge x 3/16 needle Start: 05-13-2024 End: 27-29-8241Iao Needle, Diabetic (Ulticare Pen Needle) 31 gauge x 3/16 needleStart: 05-13-2024 End: 62-16-9429Kny Needle, Diabetic 31 gauge x 5/16 needleStart: 09-12-2024 End: 37-63-6073Ajb Needle, Diabetic (Ulticare Pen Needle) 31 gauge x 3/16 needleStart: 21-27-2794Hfa Needle, Diabetic 31 gauge x 5/16 needleStart: 93-21-1187Xtp Needle, Diabetic (Ulticare Pen Needle) 31 gauge x 3/16 needle Start: 05-13-2024 End: 60-54-3682Tns Needle, Diabetic (Ulticare Pen Needle) 31 gauge x 3/16 needleStart: 05-13-2024 End: 61-91-7994Crq Needle, Diabetic 31 gauge x 5/16 needleStart: 09-12-2024 End: 52-84-0996Tqn Needle, Diabetic (Ulticare Pen Needle) 31 gauge x 3/16 needleStart: 20-52-0776Qws Needle, Diabetic 31 gauge x 5/16 needleStart: 45-17-0947Dgz Needle, Diabetic (Ulticare Pen Needle) 31 gauge x 3/16 needle Start: 05-13-2024 End: 84-56-6077Qky Needle, Diabetic (Ulticare Pen Needle) 31 gauge x 3/16 needleStart: 05-13-2024 End: 36-95-6509Xmi Needle, Diabetic 31 gauge x 5/16 needleStart: 09-12-2024 End: 01-79-4426Pwp Needle, Diabetic (Ulticare Pen Needle) 31 gauge x 3/16 needleStart: 39-50-3845Pez Needle, Diabetic 31 gauge x 5/16 needleStart: 43-72-6161Ork Needle, Diabetic (Ulticare Pen Needle) 31 gauge x 3/16 needle Start: 05-13-2024 End: 69-97-3287Jcj Needle, Diabetic (Ulticare Pen Needle) 31 gauge x 3/16 needleStart: 05-13-2024 End: 84-67-7601Pxu Needle, Diabetic 31 gauge x 5/16 needleStart: 09-12-2024 End: 20-45-8969Tct Needle, Diabetic (Ulticare Pen Needle) 31 gauge x 3/16 needleStart: 82-52-0268Gdq Needle, Diabetic 31 gauge x 5/16 needleStart: 25-85-5900Jun Needle, Diabetic (Ulticare Pen Needle) 31 gauge x 3/16 needle Start: 05-13-2024 End: 59-70-2655Key Needle, Diabetic (Ulticare Pen Needle) 31 gauge x 3/16 needleStart: 05-13-2024 End: 01-35-6616Nux Needle, Diabetic 31 gauge x 5/16 needleStart: 09-12-2024 End: 44-56-4097Wwh Needle, Diabetic (Ulticare Pen Needle) 31 gauge x 3/16 needleStart: 37-84-0980Zlb Needle, Diabetic 31 gauge x 5/16 needleStart: 52-78-0540Epp Needle, Diabetic (Ulticare Pen Needle) 31 gauge x 3/16 needle Start: 05-13-2024 End: 48-89-6140Bqm Needle, Diabetic (Ulticare Pen Needle) 31 gauge x 3/16 needleStart: 05-13-2024 End: 82-11-5389Wla Needle, Diabetic 31 gauge x 5/16 needleStart: 09-12-2024 End: 09-12-2024 Goals DatePatient GoalDesired Activity/State Functional Status UniuThdjiyshbqFerdubHvapjiid12-73-2463Gwtbpil Health Questionnaire 2 item (PHQ- 2) [Reported][facility] Clinical Notes 12-31-2014 to 10-11-2025 Note Date & XyflGzblKeiesswo54-07-2378 Telephone encounter Note* Telephone Encounter - Margarita [...] Pt would like a call back at [phone] to discuss this. [id number] Miscellaneous Notes* Telephone Encounter - Margarita Esposito [...] Pt would like a call back at [phone] to discuss this. documented in this encounterSaint Joseph Hospital of [id number] History of Present illness Narrative* Shaina Munroe, [...] 2 diabetes mellitus with Charcot's joint arthropathy ([facility]) Long-term insulin use ([facility]) Spondylolisthesis at L3-L4 level S/P laparoscopic cholecystectomy Other hammer toe(s) (acquired), left foot Chronic foot ulcer ([facility]) Carpal tunnel syndrome of right wrist Class 2 severe obesity with serious comorbidity and body mass index (BMI) of 35.0 to 35.9 in adult ([facility]) Type 2 diabetes mellitus with both eyes affected by mild nonproliferative retinopathy without macular edema, with long-term current use of insulin ([facility]) Social History Tobacco Use Smoking [...] daily 50 units) (100 UNIT/ML SOPN) Labs [facility] HEMOGLOBIN A1C/HEMOGLOBIN.TOTAL:MFR:PT:BLD:QN: 8.1 Outpatient prescription Medication marked [...] Charcot's joint arthropathy (HCC) Long-term insulin use ([facility]) Class 2 severe obesity with serious comorbidity and body mass index (BMI) of 35.0 to 35.9 in adult ([facility]) Type 2 diabetes mellitus with both eyes affected by mild nonproliferative retinopathy without macular edema, with long-term current use of insulin ([facility]) Follow up in about 3 [...] PO) Take by mouth CONTINUOUS BLOOD GLUC DRILL FOREMAN (DEXCOM G7 DRILL FOREMAN) DEVICE USE DIRECTED CONTINUOUS BLOOD GLUC SENSOR [...] the patient today. documented in this encounterSaint Joseph Hospital of [id number] Evaluation note* Diagnosis Onset Date Resolution Status Admit Date Chronic pain acuteJuly 2024 8:03amSacroiliitis, not elsewhere classifiedacuteJuly 2024 8:03amTrochanteric bursitisacuteJuly 2024 8:03am [facility] Work Phone: 1(343) 321-428007-02-2025 Evaluation note* Diagnosis Onset Date Resolution Status Admit Date Chronic pain acuteJuly 2024 8:03amSacroiliitis, not elsewhere classifiedacuteJuly 2024 8:03amTrochanteric bursitisacuteJuly 2024 8:03amChronic painacuteJuly 2024 9:03amSacroiliitis, not elsewhere classifiedacuteJuly 2024 9:03amTrochanteric bursitisacuteJuly 2024 9:03am [facility] Work Phone: 1(634) 183-763507-02-2025 Evaluation note* Diagnosis Onset Date Resolution Status Admit Date Chronic pain acuteJuly 2024 8:03amSacroiliitis, not elsewhere classifiedacuteJuly 2024 8:03amTrochanteric bursitisacuteJuly 2024 8:03amChronic painacuteJuly 2024 9:03amSacroiliitis, not elsewhere classifiedacuteJuly 2024 9:03amTrochanteric bursitisacuteJuly 2024 9:03amDiabetic foot ulcer associated with type 2 diabetes mellitus, with fat layeacuteAugust 2024 7:36amMRSA bacteremiaacuteAugust 2024 7:36amOral thrushacuteAugust 2024 7:[address]am [facility] Work Phone: 1(338) 835-219606-16-2025 History of Present illness Narrative* Shaina Munroe [...] (BMI) of 35.0 to 35.9 in adult ([facility]) Type 2 diabetes mellitus with both eyes affected by mild nonproliferative retinopathy without macular edema, with long-term current use of insulin ([facility]) Social History Tobacco Use Smoking [...] units dinner (500 UNIT/ML SOPN) -Discontinued Labs [facility] HEMOGLOBIN A1C/HEMOGLOBIN.TOTAL:MFR:PT:BLD:QN: 8.1 Outpatient prescription Medication marked [...] KWIKPEN) 100 UNIT/ML injection insulin pen needle ([employer] Pentips) 31G X 8 mm misc Other Relevant Orders POCT glycosylated hemoglobin (Hb A1C) docked device (Completed) 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) - Primary Long-term insulin use ([facility]) Class 2 severe obesity with serious comorbidity and body mass index (BMI) of 35.0 to 35.9 in adult ([facility]) Type 2 diabetes mellitus with both eyes affected by mild nonproliferative retinopathy without macular edema, with long-term current use of insulin ([facility]) Follow up in about 3 [...] PO) Take by mouth CONTINUOUS BLOOD GLUC DRILL FOREMAN (DEXCOM G7 DRILL FOREMAN) DEVICE USE DIRECTED CONTINUOUS BLOOD GLUC SENSOR [...] PENTIPS) 31G X 8 MM MISC Drug [place] Unifine Pentips 31G X 8 MMmisc Injection subcutaneous tid USE DIRECTED Discontinued Medications No medications on file I have reviewed and reconciled the history and medication list with the patient today. documented in this encounterSaint Joseph Hospital of KirkwoodCmvczxgrko08-27-9025 Evaluation note* Diagnosis Onset Date Resolution Status [...] back painacuteJuly 2024 8:03amTrochanteric bursitisacuteJuly 2024 8:03am [facility] Work Phone: 1(430) 578-191502-19-2025 Evaluation note* Diagnosis Onset Date Resolution Status [...] 06, 2025 7:41amSpondylolisthesis, lumbar regionacuteApril 2024 7:41am [facility] Work Phone: 1(777) 357-953202-10-2025 Evaluation note* Author France Carlson [facility] 2024 11:30amThe above note written by ITZ Teresa acting as human recorder, note dictated by Dr. Charan Casey. [facility] Work Phone: 1(444) 950-480202-10-2025 Telephone encounter Note* Telephone Encounter - Kati Clint - 01/09/2025 1:09 PM EST Pt's spouse called to ask if Dr. Merritt has any dexcom G7 sensors. She has been without for over aweek. Her prescription has been delayed due to insurance issues, She is having an injection tomorrow and is worried about her bg readings. [facility] [id number] Miscellaneous Notes* Telephone Encounter - Kati Jaramillo - 01/09/2025 1:09 PM EST Pt's spouse called to ask if Dr. Merritt has any dexcom G7 sensors. She has been without for over aweek. Her prescription has been delayed due to insurance issues, She is having an injection tomorrow and is worried about her bg readings. documented in this encounterSaint Joseph Hospital of KirkwoodBzupgeljrd39-60-8164 Evaluation note* Author France Carlson [facility] 2024 10:30amThe above note written by ITZ Teresa acting as human recorder, note dictated by Dr. Charan Casey. [facility] Work Phone: 1(710) 203-910011-20-2024 Evaluation note* Diagnosis Onset Date Resolution Status Admit Date Chronic pain acuteNovember 2023 8:01amOsteoarthritis of spine with radiculopathy, lumbar regionacuteNov2023 8:01amArthrosis of right acromioclavicular jointacuteNovember 2023 8:44amRotator cuff syndrome of right shoulder acuteNovember 2023 8:44amCoughacuteJanuary 2024 10:00amChronic pain acuteJanuary 2024 9:01amOsteoarthritis of spine with radiculopathy, lumbar regionacuteJanuary 2024 9:01am [facility] Work Phone: 1(952) 674-621311-20-2024 Evaluation note* Diagnosis Onset Date Resolution Status [...] of right shoulderacute December 29, 2024 7:33am [facility] Work Phone: 1([phone]) 147-937411-19-2024 History of Present illness Narrative* Shaina Munroe DO - 10/18/2024 8:35 PM ESTAssociated Problem(s): Type 2 diabetes mellitus with peripheral neuropathy ([facility]/HCC) During the appointment today all pertinent labs, [...] Charcot's joint arthropathy (CMS/HCC) Long-term insulin use ([facility]) Class 2 severe obesity with serious comorbidity and body mass index (BMI) of 39.0 to 39.9 in adult ([facility]) Type 2 diabetes mellitus with both eyes affected by mild nonproliferative retinopathy without macular edema, with long-term current use of insulin ([facility]) Follow up in about 4 [...] at the same time. CONTINUOUS BLOOD GLUC DRILL FOREMAN (DEXCOM G7 DRILL FOREMAN) DEVICE USE DIRECTED CONTINUOUS BLOOD GLUC SENSOR [...] the patient today. documented in this encounterSaint Joseph Hospital of [id number] Procedure noteScci [facility]10-14-2024 Evaluation note* Diagnosis Onset Date Resolution Status Admit Date Chronic pain acuteOctober 2023 8:03amOsteoarthritis of spine with radiculopathy, lumbar regionacuteOctober 2023 8:03amSacroiliitis, not elsewhere classifiedacute September 12, 2024 8:03amChronic painacuteNovember 2023 8:01am Osteoarthritis of spine with radiculopathy, lumbar regionacuteNovember 2023 8:01am [facility] Work Phone: 1([phone]) 116-354010-14-2024 Evaluation note* Diagnosis Onset Date Resolution Status Admit Date Chronic pain acuteOctober 2023 8:03amOsteoarthritis of spine with radiculopathy, lumbar regionacuteOctober 2023 8:03amSacroiliitis, not elsewhere classifiedacute September 12, 2024 8:03amChronic painacuteNovember 2023 8:01am Osteoarthritis of spine with radiculopathy, lumbar regionacuteNovember 2023 8:01amArthrosis of right acromioclavicular jointacuteNovember 2023 8:44amRotator cuff syndrome of right shoulderacuteNov2023 8:44am [facility] Work Phone: 1([phone]) 826-669710-14-2024 Evaluation note* Diagnosis Onset Date Resolution Status Admit Date Chronic pain acuteOctober 2023 8:03amOsteoarthritis of spine with radiculopathy, lumbar regionacuteOctober 2023 8:03amSacroiliitis, not elsewhere classifiedacute September 12, 2024 8:03amChronic painacuteNovember 2023 8:01am Osteoarthritis of spine with radiculopathy, lumbar regionacuteNovember 2023 8:01amArthrosis of right acromioclavicular jointacuteNovember 2023 8:44amRotator cuff syndrome of right shoulderacuteNovember 2023 8:44am CoughacuteJanuary 2024 10:00am [facility] Work Phone: 1(665) 666-524309-26-2024 History of Present illness Narrative* Rosalinda Torres [...] remains way above target and due to Flapiot-Lojjd-Tadwk joints she has limited exercise capacity. Her [...] machine patient has been compliant with it. 5-Oztfxri-Uhbqb-Tooth joint in the ankles status post recent [...] , Rfl: ergocalciferol (Vitamin D-2) 1.25 MG (01266 UT) capsule, Take 1 capsule (50,000 Units) [...] type, unspecified whether angina present, unspecified whether [place] or transplanted heart Follow Up In Cardiology [...] exam, discussion and plan. [facility] Phone: 1(847) 660-471309-26-2024 Instructions* Patient Instructions* Enedina Isidro LPN - [...] Provided instructions on exercise. documented in this [facility] Work Phone: 1(355) 446-236607-02-2024 Procedure noteScci Hospital [facility]03-25-2024 History of Present illness Narrative* Rosalinda Torres [...] She has orthopedic problems resulting from her Kilayvq-Ltxuq-Gheox disease. Her labs have been followed closely. [...] machine patient has been compliant with it. 3-Hagkggq-Ytybu-Tooth joint in the ankles status post recent [...] , Rfl: ergocalciferol (Vitamin D-2) 1.25 MG (52098 UT) capsule, Take 1 capsule (50,000 Units) [...] type, unspecified whether angina present, unspecified whether [place] or transplanted heart Follow Up In Cardiology 2. Essential hypertension 3. 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 4. Hyperlipidemia, unspecified hyperlipidemia type 5. Obstructive sleep apnea syndrome 6. Class 2 obesity with body mass index (BMI) of 37.0 to 37.9 in adult, unspecified obesity type, unspecified whether serious comorbidity present 7. Insulin-requiring or dependent type II diabetes mellitus ([facility]) Scribe Attestation By signing my [...] exam, discussion and plan. documented in this [facility] Work Phone: 1(586) 890-432803-25-2024 Instructions* Patient Instructions* Enedina Isidro LPN - [...] 6 m Same medications documented [facility]Access [facility] [place] Work Phone: 1(146) 974-608701-31-2024 Evaluation note* Encounter Date Diagnosis Assessment Notes [...] to call if she does not improve. [facility] Other 12-05-2023 Evaluation note* Encounter Date Diagnosis Assessment Notes Treatment Notes Treatment Clinical Notes Oct, Hyperlipidemia (ICD-10 - E78.5) [facility] Other 11-29-2023 Evaluation note* Encounter Date Diagnosis Assessment Notes Treatment Notes Treatment Clinical Notes Sep, Trochanteric bursitis of left hi p (ICD-10 - M70.62) [facility] Other 11-29-2023 Evaluation note* Encounter Date Diagnosis [...] Sep,OtherAbove note written by Willi Leiva MA, Hall Supervisor. Edited and approved by Dr. Blas Ortiz MD. [facility] Other 11-22-2023 Evaluation note* Encounter Date Diagnosis [...] of symptoms occur by end of treatment. [facility] Other 11-20-2023 Evaluation note* Encounter Date Diagnosis Assessment Notes Treatment Notes Treatment Clinical Notes Sep, Cervical spondylosis without mye lopathy (ICD-10 - M47.812) [facility] Other 11-08-2023 Evaluation note* Encounter Date Diagnosis Assessment Notes Treatment Notes Treatment Clinical Notes Sep, Hypertensive chronic kidney disease with stage 1 through stage 4 chronic kidney disease, or unspecified chronic kidney disease (ICD-10 - I12.9) [facility] Other 11-07-2023 History and physical note Author Yasmeen Treadwell [facility] October 06, 2023 8:31amNote Date/TimeNov2022 8:31am[place] [id number] Gastroenterology H&P Signed Patient: Rita Cobb MR#: [id number] [birth year] : 1960 Acct:[id number] Age/Sex: 62 / F Adm Date: 3 Loc: Room: Type: [facility] Attending Dr: Yasmeen Treadwell MD Copies to: [...] signed by Yasmeen Treadwell MD> 10/06/23 0831 [facility] Work Phone: 1(376) 792-609711-07-2023 Procedure noteScci Hospital [facility]10-25-2023 Evaluation note* Encounter Date Diagnosis Assessment Notes [...] Aug,OtherAbove note written by Corina Sánchez LPN, Hall Supervisor. Edited and approved by Dr. Blas Ortiz MD. [place] [employer] Other 10-17-2023 Evaluation note* Encounter Date Diagnosis [...] risk of worsening renal function and hematuria. [facility] Other 09-19-2023 Evaluation note* Encounter Date Diagnosis Assessment Notes Treatment Notes Treatment Clinical Notes Jul, Hyperuricemia (ICD-10 - E79.0) Jul,iabetic neuropathy (ICD-10 - E11.40) [facility] Other 09-18-2023 Evaluation note* Encounter Date Diagnosis [...] Jul,OtherAbove note written by Corina Sánchez LPN, Hall Supervisor. Edited and approved by Dr. Blas Ortiz MD. [facility] Other 09-12-2023 Evaluation note* Encounter Date Diagnosis [...] Jul,Low back pain, unspecified (ICD-10 - M54.50) [facility] Other 09-06-2023 Evaluation note* Encounter Date Diagnosis [...] Jul,Screening for colon cancer (ICD-10 - Z12.11) [facility] Other 08-03-2023 Evaluation note* Encounter Date Diagnosis Assessment Notes Treatment Notes Treatment Clinical Notes Jun, Type 2 diabetes wicoh itus with diabetic neuropathy, unspecified (ICD-10 - E11.40) [facility] Other 06-20-2023 Evaluation note* Encounter Date Diagnosis [...] M47.812) Refill provided of the above medication. [facility] Other 06-06-2023 Evaluation note* Encounter Date Diagnosis Assessment Notes Treatment Notes Treatment Clinical Notes Apr, Type 2 diabetes wicho itus with diabetic neuropathy, unspecified (ICD-10 - E11.40) [facility] Other 05-15-2023 NotePROCEDURE: XR FOOT LT 2V HISTORY: Pain COMPARISON: XR foot left 04/07/2023 FINDINGS: BONES:Several intraoperative spot fluoroscopic images demonstrate removal of 3 separate lag screws fixating the second and fourth metatarsophalangeal joints. SOFT TISSUES:Expected intraoperative findings. OTHER: Negative. IMPRESSION: 1. Hardware revision involving left midfoot. Electronically authenticated by: BLANKA OLGUIN Date: 2023-04-13 11:35[facility]05-15-2023 NotePROCEDURE: XR FOOT LT MIN 3 [...] Electronically authenticated by: BLANKA OLGUIN Date: 2023-04-13 11:29[facility]05-09-2023 NotePROCEDURE: XR FOOT LT MIN 3 [...] Electronically authenticated by: BLANKA OLGUIN Date: 2023-04-07 13:31[facility]05-08-2023 Evaluation note* Encounter Date Diagnosis Assessment Notes Treatment Notes Treatment Clinical Notes March, Type 2 diabetes wicho itus with diabetic neuropathy, unspecified (ICD-10 - E11.40) March,Type 2 diabetes mellitus with hyperglycemia, without long-term current use of insulin (ICD-10 - E11.65) [facility] Other 05-02-2023 Evaluation note* Encounter Date Diagnosis [...] as scheduled. Most recent A1C was 7.0. [facility] Other 04-27-2023 Evaluation note* Encounter Date Diagnosis Assessment Notes Treatment Notes Treatment Clinical Notes Feb, Hypertensive chronic kidney disease with stage 1 through stage 4 chronic kidney disease, or unspecified chronic kidney disease (ICD-10 - I12.9) Feb,Type 2 diabetes mellitus with diabetic neuropathy, unspecified (ICD- 10 - E11.40) [facility] Other 04-11-2023 Evaluation note* Encounter Date Diagnosis [...] have advised to continue with oral magnesium. [facility] Other 04-05-2023 Evaluation note* Encounter Date Diagnosis Assessment Notes Treatment Notes Treatment Clinical Notes Feb, Hyperlipidemia (ICD-10 - E78.5) [facility] Other 04-05-2023 Evaluation note* Encounter Date Diagnosis Assessment Notes Treatment Notes Treatment Clinical Notes Feb, Obstructive apnea (ICD-10 - G47. 33) Feb,Insomnia (ICD-10 - G47.00) Feb,Neuropathy (ICD-10 - G62.9) [facility] Other 04-05-2023 NotePROCEDURE: XR FOOT LT MIN [...] Electronically authenticated by: BLANKA OLGUIN Date: 2023-03-04 06:39[facility]03-20-2023 Evaluation note* Encounter Date Diagnosis Assessment Notes Treatment Notes Treatment Clinical Notes Jan, Hypertensive chronic kidney disease with stage 1 through stage 4 chronic kidney disease, or unspecified chronic kidney disease (ICD-10 - I12.9) Jan,iabetic neuropathy (ICD-10 - E11.40) [facility] Other 03-09-2023 Evaluation note* Encounter Date Diagnosis Assessment Notes Treatment Notes Treatment Clinical Notes Jan, Hyperuricemia (ICD-10 - E79.0) [facility] Other 03-08-2023 NotePROCEDURE: XR FOOT LT MIN [...] Electronically authenticated by: BRODERICK FLOR Date: 2023-02-04 09:36[facility]02-22-2023 NotePROCEDURE: XR FOOT LT MIN 3 [...] Electronically authenticated by: BLANKA OLGUIN Date: 2023-01-21 10:26[facility]02-20-2023 Evaluation note* Encounter Date Diagnosis Assessment Notes Treatment Notes Treatment Clinical Notes Dec, Diabetic neuropathy (ICD-10 - E1 1.40) [facility] Other [id number] NotePROCEDURE: XR FOOT LT MIN 3 VIEWS, [...] Electronically authenticated by: BLANKA OLGUIN Date: 2022-12-29 17:33[facility]01-30-2023 NotePROCEDURE: XR FOOT LT MIN 3 [...] Electronically authenticated by: BLANKA OLGUIN Date: 2022-12-29 17:33[facility]01-30-2023 NotePROCEDURE: XR FOOT LT 2V HISTORY: Pain COMPARISON: XR foot bilateral 11/12/2022 FINDINGS: BONES:Multiple intraoperative spot fluoroscopic images demonstrate resection of the bases of the metatarsals followed by midfoot fusion via lag screws. Talocalcaneal fusion. SOFT TISSUES:Expected intraoperative findings. IMPRESSION: 1. Midfoot resection and fusion. 2. Talocalcaneal fusion. Electronically authenticated by: BLANKA OLGUIN Date: 2022-12-29 17:31[facility]01-24-2023 NoteEXAM: XR CHEST 2 V HISTORY: [...] Electronically authenticated by: ACOSTA JOHNSON Date: 2022-12-23 12:48[facility]11-29-2022 Evaluation note* Encounter Date Diagnosis Assessment Notes Treatment Notes Treatment Clinical Notes Sep, Encounter for immunization (ICD- 10 - Z23) Patient presents today for Shingrix vaccination #1 of 2. Patient denies current acute illness, denies any past allergy or serious reaction to previousvaccine or ingredients. Shingrix Vaccine material and current VIS discussed and provided to patient. [facility] Other 11-17-2022 Evaluation note* Encounter Date Diagnosis Assessment Notes Treatment Notes Treatment Clinical Notes Sep, Encounter for immunization (ICD- 10 - Z23) Patient denies current illness, previous allergic reaction to influenza vaccine, eggs, or other vaccines, and Guillain-Velarde Syndrome. Patient given current editions of influenza Vaccine Information Statement (VIS). [facility] Other 11-17-2022 Evaluation note* Encounter Date Diagnosis Assessment Notes Treatment Notes Treatment Clinical Notes Sep, Hypertensive chronic kidney disease with stage 1 through stage 4 chronic kidney disease, or unspecified chronic kidney disease (ICD-10 - I12.9) [facility] Other 11-17-2022 Evaluation note* Encounter Date Diagnosis Assessment Notes Treatment Notes Treatment Clinical Notes Sep, Encounter for immunization (ICD- 10 - Z23) Patient presents today for COVID-19 vaccination booster. Patient pre-vaccination form answers reviewed. Patient denies current illness or allergic reaction to any component of a COVD-19 vaccine. Patient provided with copy of current EUA. [facility] Other 10-26-2022 Evaluation note* Encounter Date Diagnosis [...] her to take a low phosphorus diet. [facility] Other 10-04-2022 Evaluation note* Encounter Date Diagnosis [...] E11.40) Pateint continues on the above medications. [facility] Other 09-08-2022 Evaluation note* Encounter Date Diagnosis Assessment Notes Treatment Notes Treatment Clinical Notes Jul, Diabetic neuropathy (ICD-10 - E1 1.40) [facility] Other 08-17-2022 Evaluation note* Encounter Date Diagnosis Assessment Notes Treatment Notes Treatment Clinical Notes Jun, Hyperlipidemia (ICD-10 - E78.5) Jun,KD (chronic kidney disease) stage 3, GFR 30-59 ml/min (ICD-10 - N18.3) Jun,Essential hypertension (ICD-10 - I10) [facility] Other 08-03-2022 Evaluation note* Encounter Date Diagnosis Assessment Notes Treatment Notes Treatment Clinical Notes Jun, Type 2 diabetes wicho itus with diabetic neuropathy, unspecified (ICD-10 - E11.40) [facility] Other 06-01-2022 Evaluation note* Encounter Date Diagnosis Assessment Notes Treatment Notes Treatment Clinical Notes Apr, Obstructive apnea (ICD-10 - G47. 33) Apr,Insomnia (ICD-10 - G47.00) Apr,Neuropathy (ICD-10 - G62.9) [facility] Other 05-16-2022 Evaluation note* Encounter Date Diagnosis [...] Patient is to continue to follow with film replacement orderer as scheduled. March,hortness of breath (ICD-10 - R06.02) Patient is to continue to follow with the film replacement orderer as scheduled. March,arathyroid disease (ICD-10 - E21.5) Patient is to continue to follow with the specialist as scheduled. March,harcot foot due to diabetes mellitus (ICD-10 - E11.610) Patient is to continue to follow with as scheduled. [facility] Other 05-09-2022 Evaluation note* Encounter Date Diagnosis Assessment Notes Treatment Notes Treatment Clinical Notes March, Type 2 diabetes wicho itus with diabetic neuropathy, unspecified (ICD-10 - E11.40) March,Type 2 diabetes mellitus with hyperglycemia, without long-term current use of insulin (ICD-10 - E11.65) [facility] Other 03-24-2022 Evaluation note* Encounter Date Diagnosis [...] her to take a low phosphorus diet. [facility] Other 03-11-2022 Evaluation note* Encounter Date Diagnosis [...] her symptoms worsen. 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 I did provide a work note excuse today. Jan,hortness of breath (ICD-10 - R06.02) In house EKG ordered and reviewed. Cardiac consult recommended as above. Jan,iabetic neuropathy (ICD-10 - E11.40) Worsening bilateral neuropathy reported by the patient . she has been consulting with physician assistant psychiatry who per patient has suggested it may [...] The patient encourged to follow up with toolroom attendant as scheduled, discussion was had she would benefit from a pulmonary function test. [facility] Other 02-22-2022 Evaluation note* Encounter Date Diagnosis Assessment Notes Treatment Notes Treatment Clinical Notes Dec, Type 2 diabetes wicho itus with diabetic neuropathy, unspecified (ICD-10 - E11.40) [facility] Other 01-04-2022 Evaluation note* Encounter Date Diagnosis [...] deficiency (ICD-10 - E55.9) Blood work ordered. [facility] Other 02-01-2015 History general Narrative - Reported* Type Description Date Medical History DM2 Medical HistoryHTNMedical HistorySleep apneaMedical Historyhypercalcemia due [facility] HistoryneuropathyMedical History12/2014 colonscopy refusedMedical History12/31/2015 MRI left kneeMedical History04/15/19 colonoscopy refused; cologuard orderedMedical Oqzirqh60/19/19 Colonoscopy-abnormal repeat in 4 years (pos cologuard)Medical Msczgtj13/2019 Pap w/ Dr. Hesteredical History Skin ulcer of left foot, limited to breakdown of skinMedical HistorySepsis, unspecified organismMedical HistoryH/O parathyroidectomyMedical HistoryRIGHT FOOT FRACTURESurgical Historycervical fusion and low back vfruog6586Yqhovqeb HistoryProcedure:;Disease:Sowmvgrov5748Xwwzgtza Historyprevious cervical osohdw0048Xazqbnda HistoryProcedure:;Disease:Awwvfbfuj9793Dvdofuhk History c/eojfsfz0242Fadhktdm HistoryProcedure:;Disease:Cqilnawdk7430Xrlrgvst Wsnvgtijyzfeewthk2734Liphfcux HistoryProcedure:tubal ligationSurgical History Procedure:Low back fusionSurgical Historytubal hzfacvxd3648Gvzrgebq History2 parathyroids jpdjeux03/2013Surgical HistoryProcedure:cervical fusionSurgical HistoryBilateral eyelid yfiqugf77/2012Surgical HistoryProcedure:x2 thyroid glands mmleplv2473Dfstidwx Historyleft knee arthoscopy02/2016Surgical History lithotripsy03/2015Surgical Historyleft knee arthroscopy02/2016Surgical History partial left knee replacement12/2016Surgical Historyincision and drainage necrotizing fasciiitis seroma/bullae left lateral ankle/midfoot12/27/17urgical Historypartial left knee xgmdsokweeu46/2017Surgical HistoryI&D, debridement necrotizing fasciitis left ankle12/27/2017Surgical HistoryLeft ankle I & D1-2018 Surgical HistoryGallbladder01/2018Surgical HistoryLap. cholecystectomy02/17/2018 Surgical Tjmngvhwgxuinhiaph36/19/2019Surgical HistoryColonoscopy06/17/2019 Surgical Historylow back tmwiztk5707/25/2020Hospitalization Vftxvcruaynadhespw8884 Hospitalization Historynecrotizing fasciitis11/2017Hospitalization Historysee above [facility] Other 02-01-2015 History general Narrative - Reported* Type Description Date Medical History DM2 Medical HistoryHTNMedical HistorySleep apneaMedical Historyhypercalcemia due to [facility] HistoryneuropathyMedical History12/2014 colonscopy refusedMedical History12/31/2015 MRI left kneeMedical History04/15/19 colonoscopy refused; cologuard orderedMedical Vlratim21/19/19 Colonoscopy-abnormal repeat in 4 years (pos cologuard)Medical Qvkaini92/2019 Pap w/ Dr. SeymourerMedical History Skin ulcer of left foot, limited to breakdown of skinMedical HistorySepsis, unspecified organismMedical HistoryH/O parathyroidectomyMedical HistoryRIGHT FOOT FRACTURESurgical Historycervical fusion and low back imuzuz6215Blemjnss HistoryProcedure:;Disease:Wszhreevv7471Qdznfeqz Historyprevious cervical nvidoy6492Xnotehzq HistoryProcedure:;Disease:Nrpissykh9671Clpmrfka History c/nsvsgmz5711Bsqeywka HistoryProcedure:;Disease:Hoffjyyqz4073Vkdsbxxs Vhvjsjtoaxwfimjvc5235Fkgegpkk HistoryProcedure:tubal ligationSurgical History Procedure:Low back fusionSurgical Historytubal wvgmeawm8734Zgcbnrrz History2 parathyroids pjnbbpa48/2013Surgical HistoryProcedure:cervical fusionSurgical HistoryBilateral eyelid tjtoech22/2012Surgical HistoryProcedure:x2 thyroid glands owytxbr9807Dtbdmcke Historyleft knee arthoscopy02/2016Surgical History lithotripsy03/2015Surgical Historyleft knee arthroscopy02/2016Surgical History partial left knee replacement12/2016Surgical Historyincision and drainage necrotizing fasciiitis seroma/bullae left lateral ankle/midfoot12/27/17urgical Historypartial left knee eclrbauogji31/2017Surgical HistoryI&D, debridement necrotizing fasciitis left ankle12/27/2017Surgical HistoryLeft ankle I & D1-2018 Surgical HistoryGallbladder01/2018Surgical HistoryLap. cholecystectomy02/17/2018 Surgical Aryprhgnkifgxrdpgh30/19/2019Surgical HistoryColonoscopy06/17/2019 Surgical Historylow back cjiwndt6907/25/2020Surgical HistoryCardiac cath with stent placement mid LAD03/27/2022Hospitalization Lpcvkpikxudntwoday3741 Hospitalization Historynecrotizing fasciitis11/2017Hospitalization Historysee above [facility] Other 02-01-2015 History general Narrative - Reported* Type Description Date Medical History DM2 Medical HistoryHTNMedical HistorySleep apneaMedical Historyhypercalcemia due to PHT s/p [facility] HistoryneuropathyMedical History12/2014 colonscopy refusedMedical History12/31/2015 MRI left kneeMedical History04/15/19 colonoscopy refused; cologuard orderedMedical Iudkaqf10/19/19 Colonoscopy-abnormal repeat in 4 years (pos cologuard)Medical Zwhurun45/2019 Pap w/ Dr. SeymourerMedical History Skin ulcer of left foot, limited to breakdown of skinMedical HistorySepsis, unspecified organismMedical HistoryH/O parathyroidectomyMedical HistoryRIGHT FOOT FRACTUREMedical HistoryLEFT FOOT LUCAS SEEING PODIATRISTSurgical History cervical fusion and low back ovympx0079Nyymjemz History Procedure:;Disease:Lotczxjej0908Bzaymsmk Historyprevious cervical fusion 1997Surgical HistoryProcedure:;Disease:Yygzubfea8170Rbflfmwt History c/lfldyvx2307Wcvqlfxy HistoryProcedure:;Disease:Puhuyjoeg4614Xdgkxfmw Vbyyxxdfccslhljuh4623Qotuvyxf HistoryProcedure:tubal ligationSurgical History Procedure:Low back fusionSurgical Historytubal xnfjxqhr6645Gywjbfih History2 parathyroids /2013Surgical HistoryProcedure:cervical fusionSurgical HistoryBilateral eyelid xguavul56/2012Surgical HistoryProcedure:x2 thyroid glands qstjkhp2164Xlmgydeb Historyleft knee arthoscopy02/2016Surgical History lithotripsy03/2015Surgical Historyleft knee arthroscopy02/2016Surgical History partial left knee replacement12/2016Surgical Historyincision and drainage necrotizing fasciiitis seroma/bullae left lateral ankle/midfoot12/27/urgical Historypartial left knee /2017Surgical HistoryI&D, debridement necrotizing fasciitis left ankle12/27/2017Surgical HistoryLeft ankle I & D1-2018 Surgical HistoryGallbladder01/2018Surgical HistoryLap. cholecystectomy02/17/2018 Surgical Afuatuetkxpgjjhmfb87/19/2019Surgical HistoryColonoscopy06/17/2019 Surgical Historylow back afbvtmm0207/25/2020Surgical HistoryCardiac cath with stent placement mid LAD03/27/2022Hospitalization Oaverxetlnhmbhqtji4137 Hospitalization Historynecrotizing fasciitis11/2017Hospitalization Historysee above [facility] Other 02-01-2015 History general Narrative - Reported* Type Description Date Medical History DM2 Medical HistoryHTNMedical HistorySleep apneaMedical Historyhypercalcemia due to [facility] HistoryneuropathyMedical History12/2014 colonscopy refusedMedical History12/31/2015 MRI left kneeMedical History04/15/19 colonoscopy refused; cologuard orderedMedical Vqxasfb32/19/19 Colonoscopy-abnormal repeat in 4 years (pos cologuard)Medical Azwefwx52/2019 Pap w/ Dr. SeymourerMedical History Skin ulcer of left foot, limited to breakdown of skinMedical HistorySepsis, unspecified organismMedical HistoryH/O parathyroidectomyMedical HistoryRIGHT FOOT FRACTUREMedical HistoryLEFT FOOT LUCAS SEEING PODIATRISTSurgical History cervical fusion and low back sfwdyt0083Wktrslfx History Procedure:;Disease:Laaxqzanx1751Ijvgcmnm Historyprevious cervical fusion 1997Surgical HistoryProcedure:;Disease:Sdwtyzjzu7883Mbenbdjg History c/jzywrgj5766Mqvfzdmd HistoryProcedure:;Disease:Iibvmekwl1586Iahilbtu Adxhkfowihomkmrpl8063Iavxadrl HistoryProcedure:tubal ligationSurgical History Procedure:Low back fusionSurgical Historytubal sbphnbel9023Qyjyqoqf History2 parathyroids hzkjbyr03/2013Surgical HistoryProcedure:cervical fusionSurgical HistoryBilateral eyelid /2012Surgical HistoryProcedure:x2 thyroid glands pfzlhbw2305Pmzkzmnk Historyleft knee arthoscopy02/2016Surgical History lithotripsy03/2015Surgical Historyleft knee arthroscopy02/2016Surgical History partial left knee replacement12/2016Surgical Historyincision and drainage necrotizing fasciiitis seroma/bullae left lateral ankle/midfoot12/27/urgical Historypartial left knee sazykmlyjbg61/2017Surgical HistoryI&D, debridement necrotizing fasciitis left ankle12/27/2017Surgical HistoryLeft ankle I & D1-2017 Surgical HistoryGallbladder01/2018Surgical HistoryLap. cholecystectomy02/17/2018 Surgical Yyxicddopvohadwdah21/19/2019Surgical HistoryColonoscopy06/17/2019 Surgical Historylow back thxsmiw7707/25/2020Surgical HistoryCardiac cath with stent placement mid LAD03/27/2022urgical Historyreconstruction lt foot surgery 12/29/2022Hospitalization Pusicytlmqwjikcbry7058Cfxefbbybcfwexy History necrotizing fasciitis11/2017Hospitalization Historysee above [facility] Other 02-01-2015 History general Narrative - Reported* Type Description Date Medical History DM2 Medical HistoryHTNMedical HistorySleep apneaMedical Historyhypercalcemia due to [facility] HistoryneuropathyMedical History12/2014 colonscopy refusedMedical History12/31/2015 MRI left kneeMedical History04/15/19 colonoscopy refused; cologuard orderedMedical Alyhlhh02/19/19 Colonoscopy-abnormal repeat in 4 years (pos cologuard)Medical Eucovrr44/2019 Pap w/ Dr. SeymourerMedical History Skin ulcer of left foot, limited to breakdown of skinMedical HistorySepsis, unspecified organismMedical HistoryH/O parathyroidectomyMedical HistoryRIGHT FOOT FRACTUREMedical HistoryLEFT FOOT LUCAS SEEING PODIATRISTSurgical History cervical fusion and low back nzlgbj5534Xiwxkgqi History Procedure:;Disease:Oonuaclst7090Efavgagz Historyprevious cervical fusion 1997Surgical HistoryProcedure:;Disease:Zqnqichjv2910Ghfsdmtr History c/ebzkohl4992Dumokheh HistoryProcedure:;Disease:Uwlsqspbj1803Ztlcvmmx Yaherkougzlxqkagv9197Cfkaiohg HistoryProcedure:tubal ligationSurgical History Procedure:Low back fusionSurgical Historytubal ovthtrfw2361Dehtphie History2 parathyroids bankroy23/2013Surgical HistoryProcedure:cervical fusionSurgical HistoryBilateral eyelid qhzmpre48/2012Surgical HistoryProcedure:x2 thyroid glands xeotsex9928Afavtaod Historyleft knee arthoscopy02/2016Surgical History lithotripsy03/2015Surgical Historyleft knee arthroscopy02/2016Surgical History partial left knee replacement12/2016Surgical Historyincision and drainage necrotizing fasciiitis seroma/bullae left lateral ankle/midfoot12/27/17urgical Historypartial left knee vlovpoulykc19/2017Surgical HistoryI&D, debridement necrotizing fasciitis left ankle12/27/2017Surgical HistoryLeft ankle I & D1-2018 Surgical HistoryGallbladder01/2018Surgical HistoryLap. cholecystectomy02/17/2018 Surgical Uotqbomwiadvrxhean03/19/2019Surgical HistoryColonoscopy06/17/2019 Surgical Historylow back surgery-jgqrbl4207/25/2020Surgical HistoryCardiac cath with stent placement mid LAD03/27/2022urgical Historyreconstruction lt foot alhfsuc7612/29/2022Hospitalization Zxycurrknojonfyvga0460Nhypnpngexjkqvi History necrotizing fasciitis11/2017Hospitalization Historysee above [facility] Other 02-01-2015 History general Narrative - Reported* Type Description Date Medical History DM2 Medical HistoryHTNMedical HistorySleep apneaMedical Historyhypercalcemia due to [facility] HistoryneuropathyMedical History12/2014 colonscopy refusedMedical History12/31/2015 MRI left kneeMedical History04/15/19 colonoscopy refused; cologuard orderedMedical Edfdctj03/19/19 Colonoscopy-abnormal repeat in 4 years (pos cologuard)Medical Lliaxue10/2019 Pap w/ Dr. SeymourerMedical History Skin ulcer of left foot, limited to breakdown of skinMedical HistorySepsis, unspecified organismMedical HistoryH/O parathyroidectomyMedical HistoryRIGHT FOOT FRACTUREMedical HistoryLEFT FOOT LUCAS SEEING PODIATRISTSurgical History cervical fusion and low back cidymd2031Wosasvrq History Procedure:;Disease:Uiyyuruhj8184Vohigrpp Historyprevious cervical fusion 1997Surgical HistoryProcedure:;Disease:Esfmhpfwq3227Exhapbvl History c/aonpseh2404Ufxymhyk HistoryProcedure:;Disease:Tpztwzoch5353Gphrpwkd Kejeyihjfdlxcfkwc5426Bnokrblk HistoryProcedure:tubal ligationSurgical History Procedure:Low back fusionSurgical Historytubal cmrmawxr7105Zngekkya History2 parathyroids /2013Surgical HistoryProcedure:cervical fusionSurgical HistoryBilateral eyelid /2012Surgical HistoryProcedure:x2 thyroid glands pnbrlam0639Jsjdzrgd Historyleft knee arthoscopy02/2016Surgical History lithotripsy03/2015Surgical Historyleft knee arthroscopy02/2016Surgical History partial left knee replacement12/2016Surgical Historyincision and drainage necrotizing fasciiitis seroma/bullae left lateral ankle/midfoot12/27/17urgical Historypartial left knee brubyssjvgy55/2017Surgical HistoryI&D, debridement necrotizing fasciitis left ankle12/27/2017Surgical HistoryLeft ankle I & D1-2017 Surgical HistoryGallbladder01/2018Surgical HistoryLap. cholecystectomy02/17/2018 Surgical Rwxuufylnvdzgahlgq43/19/2019Surgical HistoryColonoscopy06/17/2019 Surgical Historylow back surgery-rgicrs9807/25/2020Surgical HistoryCardiac cath with stent placement mid LAD03/27/2022urgical Historyreconstruction lt foot surgery Dr. Castro12/29/2022Hospitalization Jhbvhipcuamslrrqzk4935 Hospitalization Historynecrotizing fasciitis11/2017Hospitalization Historysee above [facility] Other 02-01-2015 History general Narrative - Reported* Type Description Date Medical History DM2 Medical HistoryHTNMedical HistorySleep apneaMedical Historyhypercalcemia due to PHT s/p surgery in [facility]Medical HistoryneuropathyMedical History12/2014 colonscopy refusedMedical History12/31/2015 MRI left kneeMedical History04/15/19 colonoscopy refused; cologuard orderedMedical Axhtiaa04/19/19 Colonoscopy-abnormal repeat in 4 years (pos cologuard)Medical Jmifjiz89/2019 Pap w/ Dr. SeymourerMedical History Skin ulcer of left foot, limited to breakdown of skinMedical HistorySepsis, unspecified organismMedical HistoryH/O parathyroidectomyMedical HistoryRIGHT FOOT FRACTUREMedical HistoryLEFT FOOT LUCAS SEEING PODIATRISTSurgical History cervical fusion and low back iwtady2016Gbsfwzzp History Procedure:;Disease:Ogfhacyrk8692Bitrwdva Historyprevious cervical fusion 1997Surgical HistoryProcedure:;Disease:Dcmldnxvu6150Zeostqxf History c/zuiawwp9672Gygmkbbp HistoryProcedure:;Disease:Xisqkklpm9569Abvliiey Ihooamfbcrvnntrlp5787Rltecnco HistoryProcedure:tubal ligationSurgical History Procedure:Low back fusionSurgical Historytubal bawlqxqo0698Rukjxtpn History2 parathyroids zdcekld06/2013Surgical HistoryProcedure:cervical fusionSurgical HistoryBilateral eyelid bdarkgc76/2012Surgical HistoryProcedure:x2 thyroid glands utylehz4018Ljvviwjp Historyleft knee arthoscopy02/2016Surgical History lithotripsy03/2015Surgical Historyleft knee arthroscopy02/2016Surgical History partial left knee replacement12/2016Surgical Historyincision and drainage necrotizing fasciiitis seroma/bullae left lateral ankle/midfoot12/27/17urgical Historypartial left knee ogmtehnzhrj25/2017Surgical HistoryI&D, debridement necrotizing fasciitis left ankle12/27/2017Surgical HistoryLeft ankle I & D1-2018 Surgical HistoryGallbladder01/2018Surgical HistoryLap. cholecystectomy02/17/2018 Surgical Ilxwvkouxjryhnklzo46/19/2019Surgical HistoryColonoscopy06/17/2019 Surgical Historylow back surgery-duewsw7407/25/2020Surgical HistoryCardiac cath with stent placement mid LAD03/27/2022urgical Historyreconstruction lt foot surgery Dr. Castro12/29/2022Surgical HistorySTEROID INJECTIONS IN LOW BACK AND RIGHT HIP08/2023Hospitalization Cumetybrxphuasjdkt7402Vsycdthlgjqobaa Historynecrotizing fasciitis11/2017Hospitalization Historysee above [facility] [employer] Other Evaluation noteNort [employer] Other Evaluation noteNo InformationNort [employer] Other Evaluation noteNort [employer] Other evaluation noteNo assessment information available [facility] Work Phone: Evaluation note* Diagnosis Coronary artery disease, unspecified vessel or lesion type, unspecified whether angina present, unspecified whether [place] or transplanted heart- Primary Essential hypertension Unspecified essential hypertension 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 Hyperlipidemia, unspecified hyperlipidemia type Obstructive sleep apnea syndrome Obstructive sleep apnea (adult) (pediatric) Class 2 obesity with body mass index (BMI) of 37.0 to 37.9 in adult, unspecified obesity type, unspecified whether serious comorbidity present Insulin-requiring or dependent type II diabetes mellitus ([facility]) Type II or unspecified type diabetes mellitus without mention of complication, not stated as uncontrolled documented in this encounter [facility] Work Phone: Evaluation note* Diagnosis Onset Date Resolution Status Chronic pain acuteInflammation of sacroiliac jointacuteOsteoarthritis of spine with radiculopathy, lumbar regionacuteTrochanteric bursitisacute [facility] Work Phone: Evaluation note* Diagnosis Onset Date Resolution Status Chronic pain acuteInflammation of sacroiliac jointacuteOsteoarthritis of spine with radiculopathy, lumbar regionacuteTrochanteric bursitisacuteCKD (chronic kidney disease) stage 3, GFR 30-59 ml/minacuteHyperlipidemiaacuteHyperparathyroidism hvqtkFHE-HWXG-[id number]lLqudybdzjtweqytyxfuJmrxanecfgimhqs acuteType 2 diabetes mellitus with diabetic chronic kidney diseaseacute [facility] Work Phone: Evaluation note* Diagnosis Onset Date Resolution Status Chronic pain acuteInflammation of sacroiliac jointacuteOsteoarthritis of spine with radiculopathy, lumbar regionacuteTrochanteric bursitisacuteCKD (chronic kidney disease) stage 3, GFR 30-59 ml/minacuteHyperlipidemiaacuteHyperparathyroidism bxymoUCF-VLBY-[id number]rqfdssmdpaxdkxeinyLrijezlctycohhx acuteType 2 diabetes mellitus with diabetic chronic kidney diseaseacuteChronic painacuteLumbar muscle painacuteOsteoarthritis of spine with radiculopathy, lumbar regionacute [facility] Work Phone: Evaluation note* Diagnosis Onset Date Resolution Status CKD (chronic kidney disease) stage 3, GF R 30-59 ml/min sptisYsqnnbvhflvkoebguroCturcjfeshaacgtydnlcxappEXF-BBLB-[id number] HyperuricemiaacuteHypomagnesemiaacuteNephrolithiasisacuteType 2 diabetes mellitus with diabetic chronic kidney diseaseacuteChronic painacuteLumbar muscle painacuteOsteoarthritis of spine with radiculopathy, lumbar regionacuteChronic painacuteOsteoarthritis of spine with radiculopathy, lumbar regionacute Sacroiliitis, not elsewhere classifiedacute [facility] Work Phone: evaluation note* Diagnosis Onset Date Resolution Status Chronic pain acuteLumbar muscle painacuteOsteoarthritis of spine with radiculopathy, lumbar regionacuteChronic painacuteOsteoarthritis of spine with radiculopathy, lumbar regionacuteSacroiliitis, not elsewhere classifiedacute [facility] Work Phone: evaluation note* Diagnosis Onset Date Resolution Status Chronic pain acuteLumbar muscle painacuteOsteoarthritis of spine with radiculopathy, lumbar regionacuteChronic painacuteOsteoarthritis of spine with radiculopathy, lumbar regionacuteSacroiliitis, not elsewhere classifiedacuteObstructive apneaacute [facility] Work Phone: evaluation note* Diagnosis Onset Date Resolution Status Chronic pain acuteLumbar muscle painacuteOsteoarthritis of spine with radiculopathy, lumbar regionacuteChronic painacuteOsteoarthritis of spine with radiculopathy, lumbar regionacuteSacroiliitis, not elsewhere classifiedacuteObstructive apneaacute Chronic painacuteOsteoarthritis of spine with radiculopathy, lumbar regionacute Sacroiliitis, not elsewhere classifiedacute 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 ([facility]) Long-term insulin use ([facility]) Class 2 severe obesity due to excess calories with serious comorbidity and body mass index (BMI) of39.0 to 39.9 in adult ([facility]) Type 2 diabetes mellitus with peripheral neuropathy ([facility])- Primary 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 ([facility]) Class 2 severe obesity due to excess calories with serious comorbidity and body mass index (BMI) of39.0 to 39.9 in adult ([facility]) Long-term insulin use ([facility]) Spondylolisthesis at L3-L4 level Class 2 severe obesity due to excess calories with serious comorbidity and body mass index (BMI) of38.0 to 38.9 in adult ([facility])- Primary Type 2 diabetes mellitus with both eyes affected by mild nonproliferative retinopathy without macular edema, with long-term current use of insulin ([facility]) Type 2 diabetes mellitus with peripheral neuropathy ([facility]) 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 ([facility]) Long-term insulin use ([facility]) Type 2 diabetes mellitus with peripheral neuropathy ([facility])- Primary 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 ([facility]) Type 2 diabetes mellitus with both eyes affected by mild nonproliferative retinopathy without macular edema, with long-term current use of insulin ([facility]) Long-term insulin use ([facility]) Class 2 severe obesity due to excess calories with serious comorbidity and body mass index (BMI) of39.0 to 39.9 in adult ([facility]) documented in this encounter [facility] HealthcareEvaluation note* Diagnosis Coronary artery disease, unspecified vessel or lesion type, unspecified whether angina present, unspecified whether [place] or transplanted heart Elevated coronary artery calcium score Essential hypertension Unspecified essential hypertension Hyperlipidemia, unspecified hyperlipidemia type Type 2 diabetes mellitus without complication, with long-term current use of insulin ([facility]) 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 Obstructive sleep apnea syndrome Obstructive sleep apnea (adult) (pediatric) Class 2 obesity with body mass index (BMI) of 37.0 to 37.9 in adult, unspecified obesity type, unspecified whether serious comorbidity present documented in this encounter [facility] Work Phone: Evaluation note* Author [place] [facility] 10:30amThe above note written by ITZ Teresa acting as human recorder, note dictated by Dr. Charan Casey. 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) Class 2 severe obesity due to excess calories with serious comorbidity and body mass index (BMI) of39.0 to 39.9 in adult ([facility]) Long-term insulin use (HCC) Spondylolisthesis at L3-L4 level Class 2 severe obesity due to excess calories with serious comorbidity and body mass index (BMI) of38.0 to 38.9 in adult ([facility])- Primary Type 2 diabetes mellitus with [...] index (BMI) of39.0 to 39.9 in adult ([facility]) Type 2 diabetes mellitus with Charcot's [...] index (BMI) of37.0 to 37.9 in adult ([facility]) Type 2 diabetes mellitus with Charcot's [...] index (BMI) of35.0 to 35.9 in adult ([facility]) documented in this encounter [facility] HealthcareEvaluation note* Diagnosis Type 2 diabetes mellitus with peripheral neuropathy (HCC)- Primary 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) Long-term insulin use (HCC) Class 2 severe obesity due to excess calories with serious comorbidity and body mass index (BMI) of39.0 to 39.9 in adult ([facility]) Type 2 diabetes mellitus with peripheral neuropathy (HCC)- Primary 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) Class 2 severe obesity due to excess calories with serious comorbidity and body mass index (BMI) of39.0 to 39.9 in adult ([facility]) Long-term insulin use ([facility]) Spondylolisthesis at L3-L4 level Class 2 severe obesity due to excess calories with serious comorbidity and body mass index (BMI) of38.0 to 38.9 in adult ([facility])- Primary Type 2 diabetes mellitus [...] index (BMI) of39.0 to 39.9 in adult ([facility]) 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)- Primary Type 2 diabetes mellitus with peripheral neuropathy (HCC) Type 2 diabetes mellitus with both eyes affected by mild nonproliferative retinopathy without macular edema, with long-term current use of insulin (HCC) Long-term insulin use ([facility]) Class 2 severe obesity due to excess calories with serious comorbidity and body mass index (BMI) of37.0 to 37.9 in adult ([facility]) 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)- Primary Type 2 diabetes mellitus with peripheral neuropathy ([facility]) Type 2 diabetes mellitus with both eyes affected by mild nonproliferative retinopathy without macular edema, with long-term current use of insulin (HCC) Long-term insulin use ([facility]) Class 2 severe obesity due to excess calories with serious comorbidity and body mass index (BMI) of35.0 to 35.9 in adult ([facility]) Type 2 diabetes mellitus with peripheral neuropathy ([facility])- Primary 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 ([facility]) Type 2 diabetes mellitus with both eyes affected by mild nonproliferative retinopathy without macular edema, with long-term current use of insulin (HCC) Long-term insulin use ([facility]) Class 2 severe obesity due to excess calories with serious comorbidity and body mass index (BMI) of35.0 to 35.9 in adult ([facility]) [facility] N[facility]ative - ReportedNoteWagon Other History general Narrative - ReportedNoteWagon Other Hospital Discharge instructions Additional Instructions DISCHARGE [...] years. -Follow up with PCP. -Office number [phone]. [facility] Work Phone: Reason for referral (narrative)* Consultation (Routine) - AuthorizedSpecialtyDiagnoses / ProceduresReferred By Contact Referred To ContactCardiology Diagnoses Coronary artery disease, unspecified vessel or lesion type, unspecified whether angina present, unspecified whether [place] or transplanted heart Procedures Follow Up In Cardiology Rosalinda Torres MD [address] [place] [address] Rosalinda Torres MD [address] [place] [address], [address] [address] Referral IDStatusReasonStart DateExpiration DateVisits RequestedVisits [id number]/25/20243/ [facility] Work Phone: Reason for referral (narrative)* Consultation (Routine) - AuthorizedSpecialtyDiagnoses / ProceduresReferred By Contact Referred To ContactCardiology Diagnoses Coronary artery disease, unspecified vessel or lesion type, unspecified whether angina present, unspecified whether [place] or transplanted heart Procedures Follow Up In Cardiology Rosalinda Torres MD [address] [facility] [address] [place] [address] Rosalinda Torres MD [address] [facility] [address], [facility] [address] [place] [address] Referral IDStatusReasonStart DateExpiration DateVisits RequestedVisits [id number]/26/20249/ [facility] Work Phone: Rexkar for referral (narrative)No reason for referral information availableMercy Health St. [facility] Work Phone: Summary Purpose Family History Unknown Family Member Name Dates Details Family history of CABG: Fat er(V17.49, Z82.49) Status:Active Unknown Family Member Name Dates Details Family history of CABG: [facility] er(V17.49, Z82.49) Status:Active Unknown Family Member Name Dates Details Family history of CABG: [facility] er(V17.49, Z82.49) Status:Active Unknown Family Member Name [...] the patient is agreeable to go on jbdulmamzkoe99 mg daily along with Zetia 10 mg [...] any trouble since her angioplasty. She has Mrxbufe-Ihnzq-Kszla disease and had recent surgery on the [...] has been compliant with it. * 7 Webhgyi-Ptdrl-Zcplk joint in the ankles status post recent surgery on the left foot with plan to repair the right foot down the road Reason for Referral Reason Patient is need ing to having screening colonoscopy. Please schedule with [facility] Gastro. Patient DOES NOT want to see Dr. Bryant. Please call patient to schedule Diagnosis 1 Screening for colon cancer (Z12.11) Referral Organization [facility] Family Medicin elia Bowlegs Referring Provider First Name Charan Referring Provider Last Name Jacinto Referring Provider Specialty Family Prac pop Referred Organization [facility] Gastroenterolo gy Referred Provider Yasmeen Treadwell Referred Address [address] [facility] ,[place], [place],[address] Referred Provider Specialty Gastroentero logy Referral Priority Routine General Notes Fore, Renée M 023 10:30:05 AM >Received today and sent P2P Reason stat consult and lou at Diagnosis 1 Chest pressure (R07. 89) Diagnosis 2 Shortness of breath (R06.02) Diagnosis 3 Type 2 diabetes wicho itus with diabetic neuropathy, unspecified (E11.40) Diagnosis 4 Obstructive apnea (G 47.33) Referral Organization [facility] Family Matthew rodrigez Bowlegs Referring Provider First Name Charan Referring Provider Last Name Jacinto Referring Provider Specialty Family Giancarlo lord Referred Organization [facility] enter Referred Address [address] [facility] [address],[place], [place],[address] Referred Provider Specialty Cardiology Referral Priority Stat [...] stage 3, GFR 30-59 ml/min Hyperlipidemia Hyperparathyroidism [id number] Hyperuricemia Hypomagnesemia Nephrolithiasis Type 2 diabetes mellitus [...] stage 3, GFR 30-59 ml/min Hyperlipidemia Hyperparathyroidism [id number] Hyperuricemia Hypomagnesemia Nephrolithiasis Type 2 diabetes mellitus [...] stage 3, GFR 30-59 ml/min Hyperlipidemia Hyperparathyroidism [id number] Hyperuricemia Hypomagnesemia Nephrolithiasis Type 2 diabetes mellitus [...] stage 3, GFR 30-59 ml/min Hyperlipidemia Hyperparathyroidism [id number] Hyperuricemia Hypomagnesemia Nephrolithiasis Type 2 diabetes mellitus [...] January 26, 2025 9:45am MRI RESULTS [facility] January 26, 2025 12:50pm Reason for Visit [...] January 23, 2025 12:43pm MRI RESULTS [facility] January 26, 2025 12:50pm Rotator cuff syndrom [...] January 23, 2025 12:43pm MRI RESULTS [facility] January 26, 2025 12:50pm Rotator cuff syndrom [...] January 23, 2025 12:43pm MRI RESULTS [facility] January 26, 2025 12:50pm Rotator cuff syndrom [...] January 23, 2025 12:43pm MRI RESULTS [facility] January 26, 2025 12:50pm Rotator cuff syndrom [...] 8:03a m Sacroiliitis, not elsewhere classified [facility] 2024 8:03am Trochanteric bursitis May 31, 2025 [...] 8:03a m Sacroiliitis, not elsewhere classified [facility] 2024 8:03am Trochanteric bursitis May 31, 2025 8:0 3am Chronic pain June 21, 2025 9:03 am Sacroiliitis, not elsewhere classified [facility] 2024 9:03am Trochanteric bursitis June 21, 2025 9: 03am Diabetic foot ulcer associat ed with type 2 diabetes mellitus, with fat laye July 12, 2025 7:36am MRSA bacteremia July 12, 2025 7: 36am Oral thrush July 12, 2025 7: 36am Additional Source Comments INFORMATION SOURCE (unrecogn ized section and content) DATE CREATED AUTHOR 07/28/2018 [facility] DATE CREATED AUTHOR AUTHOR'S ORGANIZ ATION 03/18/2022 [facility] DATE CREATED AUTHOR AUTHOR'S ORGANIZ ATION 10/17/2022 [facility] DATE CREATED AUTHOR AUTHOR'S ORGANIZ ATION 04/13/2023 [facility] DATE CREATED AUTHOR AUTHOR'S ORGANIZ ATION 05/08/2023 [facility] DATE CREATED AUTHOR AUTHOR'S ORGANIZ ATION 05/08/2023 [facility] DATE CREATED AUTHOR AUTHOR'S ORGANIZ ATION 02/23/2024 [facility] DATE CREATED AUTHOR AUTHOR'S ORGANIZ ATION 06/09/2025 [facility] DATE CREATED AUTHOR AUTHOR'S ORGANIZ ATION 07/29/2025 [facility] REASON FOR VISIT (unrecogniz ed section and content) ReasonOnset DateCommentsMedication Yqahtvgh81/12/2025ReasonCommentsFollow-up6m SpecialtyDiagnoses / ProceduresReferred By ContactReferred To ContactCardiology Diagnoses Coronary artery disease, unspecified vessel or lesion type, unspecified whether angina present, unspecified whether [place] or transplanted heart Procedures Follow Up In Cardiology Rosalinda Torres MD [address] [facility] [address], [address] [address] Rosalinda Torres MD [address] [facility] [address], [address] [address] Referral IDStatusReasonStart DateExpiration DateVisits RequestedVisits [id number] [id number] CommentsFollow-up[address] ChengionCOLONOSCOPY REPORTUpdate Kiosk [...] program 4/8Clinicalneuropathy, chest pressure ,SOBfyirefillsneeds fmla, FACETIME [phone] Care Teams (unrecognized sec tion and content) [...] Status: Inactive Member Role Status Dates Charan Csaey , DO Primary Care Provider Active Yasmeen [...] 2023Team MemberRelationshipSpecialtyStart DateEnd Date Charan Casey DO [facility] [address] [place] [address] PCP - GeneralFamily Medicine02/22/24 Rosalinda Torres MD [address] [facility] [address], [address] [address] Consulting PhysicianCardiology02/22/24 Team Status: Inactive Member Role [...] 2024Team MemberRelationshipSpecialtyStart DateEnd Date Charan Casey MD [address] [place] [phone] PCP - General05/20/23 Moni Becker MD [address] [facility] [address] [place] [address] PCP - [facility]/11/2411Team MemberRelationshipSpecialtyStart DateEnd Date Charan Casey DO [facility] - [facility]/22/24 Rosalinda Torres MD [address] [place] [address] 2, [facility] [address] [place] [address] Consulting PhysicianCardiology02/22/24 Team Status: Inactive Member Role [...] 2025Team MemberRelationshipSpecialtyStart DateEnd Date Charan Casey MD [address] [place] [phone] [facility] - General05/20/23 Team Status: Active Member [...] 2025Team MemberRelationshipSpecialtyStart DateEnd Date Charan Casey DO [address] [place] [phone] [facility] - [facility]05/20/23 Team Status: Inactive Member Role [...] 2025Team MemberRelationshipSpecialtyStart DateEnd Date Charan Casey DO [address] [place] [address], [place] [phone] PCP - General05/20/23Team MemberRelationshipSpecialtyStart DateEnd Date Charan Casey DO [address] [place] [address], [place] [phone] PCP - General05/20/23Team MemberRelationshipSpecialtyStart DateEnd Date Charan Casey DO [address] [place] [address], [place] [phone] PCP - General05/20/23 Goals (unrecognized section and [...] ON THE PRIMARY CLINICAL RECORDS. [facility]. provides no warranty or guarantee of the accuracy or completeness of information in this document.
== END 2025-10-25 09:10 | disposition home or self-care (01) ==
LOC: WC 09:09
PROVIDERS: PCP Family Medicine; Visit Provider Physician Assistant
DX: E11.621 Type 2 diabetes mellitus with foot ulcer (principal); L97.423 Non-pressure chronic ulcer of left heel and midfoot with necrosis of muscle
CPT/HCPCS: A6213; G0463

== ENCOUNTER 2025-11-01 10:04 | Outpatient (OUT) | payer OTHER, SELFPAY ==
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
--- OUTSIDE RECORDS SUMMARY | 2025-11-01 10:08 | XMS_ITS | Encounter Summary ---
Author Organization [facility] Address [address] [facility] [place] [address] Care Team Providers Care Display Maker Name Role Phone Brysonbryn Charan Louise DO Primary Care Provider [phone] Encounter Details DateTypeDepartmentCare Team (Latest Contact Info)Qoohajfqfjx75/25/2025amboo flowsheet [facility] [address] [facility] [address] [place] [address] Shaina Figueroa DO [address] [facility] [address] [place] [address] Social History Tobacco UseTypesPacks/DayYears UsedDateSmoking Tobacco: NeverSmokeless Tobacco: NeverAlcohol UseStandard Drinks/WeekCommentsNever0 (1 standard drink = 0.6 oz pure alcohol)caffeine: 1-2 cups per day [id number] Health LiteracyAnswerDate RecordedHow often do you need [...] relatives?Once a week07/26/2025How often do you attend sabianism or shinto services?More than 4 times per year07/26/2025Do you [...] at all 07/26/2025PHQ-2AnswerDate RecordedPatient Health Questionnaire-2 Score0 10/24/2025[facility] [place] [facility] - Occupational Stress QuestionnaireAnswerDate RecordedDo you feel stress - tense, restless, nervous, or anxious, or unable to sleep at night because yourmind is troubled all the time - these days?To some bfojae9302/08/2024Exercise Vital SignAnswerDate Recorded On average, how many days per week do you engage in moderate to strenuous exercise (like a brisk walk)?Patient zzrtewlz20/11/2024On average, how many minutes do you engage [...] steady place to sleep or slept in [facility] (including now)?No 02/08/2024Housing Stability Vital SignAnswerDate RecordedIn the last 12 months, was there a time when you were not able to pay the mortgage or rent on time?No 07/26/2025In the past 12 months, how many times have you moved where you were living?t any time in the past 12 months, were you homeless or living in a senior living (including now)?No07/26/2025CommentsUnknownSex and Gender InformationValueDate RecordedSex Assigned at DckkrOslzmj24/21/2023 8:32 AM EDT Legal TkqQsfish86/15/2023 7:19 PM EDTGender LwyzeacpHgepsa56/21/2023 8:32 AM EDT Sexual OrientationNot on filedocumented as of this encounter Plan of Treatment DateTypeDepartmentCare Team (Latest Contact Info)Ivjmakgpdon00/24/2026 8:45 AM ESTOffice Visit [facility] [address] [place] [phone] Shaina Figueroa, DO [address] [place] [address] documented as of this encounter Visit Diagnoses Not on filedocumented in this encounter Care Teams Team MemberRelationshipSpecialtyStart DateEnd Date Charan Delgadillo DO [address] [place] [phone] PCP - General05/20/23documented as of this encounter
--- OUTSIDE RECORDS SUMMARY | 2025-11-01 10:08 | XMS_ITS | Encounter Summary ---
Author Organization [facility] Address [address] [facility] [place] [address] Care Team Providers Care Open Claims Representative Name Role Phone Brysonbryn Charan Louise DO Primary Care Provider [phone] Encounter Details DateTypeDepartmentCare Team (Latest Contact Info)Npekciefrdm98/25/2025Travel Social History Tobacco UseTypesPacks/DayYears UsedDateSmoking Tobacco: NeverSmokeless Tobacco: NeverAlcohol UseStandard Drinks/WeekCommentsNever0 (1 standard drink = 0.6 oz pure alcohol)caffeine: 1-2 cups per day [id number] Health LiteracyAnswerDate RecordedHow often do you need [...] relatives?Once a week07/26/2025How often do you attend pentecostalism or samaritan services?More than 4 times per year07/26/2025Do you belong to any clubs or organizations such as pentecostalism groups, unions, fraternal [...] at all 07/26/2025PHQ-2AnswerDate RecordedPatient Health Questionnaire-2 Score0 10/24/2025[facility] - Occupational Stress QuestionnaireAnswerDate RecordedDo you feel stress - tense, restless, nervous, or anxious, or unable to sleep at night because yourmind is troubled all the time - these days?To some qktmni3902/08/2024Exercise Vital SignAnswerDate Recorded On average, how many days per week do you engage in moderate to strenuous exercise (like a brisk walk)?Patient hxtuxpoe44/11/2024On average, how many minutes do you engage in exercise at this level?Patient ctzlwazr52/11/2024Hunger Vital SignAnswerDate RecordedWithin the past 12 months, [...] were you homeless or living in a long-term (including now)?No07/26/2025CommentsUnknownSex and Gender InformationValueDate RecordedSex Assigned at ZtabeHtcxvs02/21/2023 8:32 AM EDT Legal FqrKlmuwz81/15/2023 7:19 PM EDTGender BgutaupmYhggxz06/21/2023 8:32 AM EDT Sexual OrientationNot on filedocumented as of this encounter Functional Status * Over the past 2 weeks, how often have you been bothered by any of the following problems?QuestionAnswerDate of AssessmentAuthorLittle interest or pleasure in doing thingsNot at all10/24/2025 10:39 AM Monica Kendall LPNFeeling down, depressed, or hopelessNot at all10/24/2025 10:39 AM Monica Kendall LPNPatient Health Questionnaire-2 Hstil67312/24/2024 10:39 AM Monica Kendall LPN documented as of this encounter Plan of Treatment DateTypeDepartmentCare Team (Latest Contact Info)Gajmejrnrln97/24/2026 8:45 AM ESTOffice Visit [facility] [place] [facility] [address] [place] [address] Shaina Figueroa DO [address] [place] [address] documented as of this encounter Visit Diagnoses Not on filedocumented in this encounter Care Teams Team MemberRelationshipSpecialtyStart DateEnd Date Charan Delgadillo DO [address] [place] [phone] PCP - General05/20/23documented as of this encounter
--- OUTSIDE RECORDS SUMMARY | 2025-11-01 10:08 | XMS_ITS | Clinical Summary ---
Author Organization [facility] Address [address] [place] [address] Care Team Providers Care Route Driver Coin Machines Name Role Phone Brysonmarybeth Charan Dani BASSETT Primary Care Provider [phone] Allergies Active AllergyReactionsCriticalityNoted DateCommentsErythromycinUnknown 05/15/2025Erythromycin BaseNausea Only05/19/2023 Other Reaction(s): Abdominal Pain, nausea LevofloxacinGI vnhmrdretlrWxmu93/25/2024 Head ache Other Reaction(s): hypoglycemia Medications MedicationSigDispense [...] MOUTH ONCE DAILY ON mondays, wednesdays, AND ghkcmsl9211/12/2022 Active pregabalin (Lyrica) 150 MG capsule Take 150 mg by mouth at bedtimeActive Continuous Blood Gluc Chute Feeder (Dexcom G7 Chute Feeder) device USE OVKCOWOY73/17/2023ctive Continuous Blood Gluc Sensor (Dexcom G7 Sensor) misc USE DIRECTED, CHANGE EVERY 10 DAYS08/18/2023ctive Ascorbic Acid (vitamin C) 1000 MG tablet Take 1,000 mg by mouth in the morning.Active b complex vitamins capsule Take 1 capsule by mouth in the morning.Active Bioflavonoid Products (Brokoe-C) tablet as directed OrallyActive Coenzyme Q10 (CO Q 10 PO) Take by mouthActive insulin pen needle 31G X 8 mm [facility] Indications:Type 2 diabetes mellitus with peripheral neuropathy [...] macular edema, with long-term current use of epbwjnt1904/21/2024Type 2 diabetes mellitus with peripheral tfurbsgnfb26/13/2023 Assessment & Plan (10/24/2025 11:23 AM EST): [...] 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 jyssupvgkwd75/13/2023 Assessment & Plan (02/11/2024 9:19 PM EDT): [...] Long-term insulin use10/12/2023Spondylolisthesis at L3-L4 level10/12/2023S/P laparoscopic cwurxyogixixfsa90/13/2023Other hammer toe(s) (acquired), left foot 10/12/2023lass 2 severe obesity with serious comorbidity and body mass index (BMI) of 35.0 to 35.9 in adult10/12/2023arpal tunnel syndrome of right wrist 01/27/2020Chronic foot ulcer04/13/2018 Encounters DateTypeDepartmentCare YyowGhfgdivlrey62/25/2025 10:30 AM ESTOffice Visit [facility] [address] [place] [phone] Shaina Figueroa, DO Type 2 diabetes mellitus [...] (BMI) of35.0 to 35.9 in adult10/24/2025amboo flowsheet [facility] [address] [place] [phone] Shaina Figueroa, DO 10/24/20257084Jlvzqg41/12/2025Telephone [facility] [address] [place] [address] Shaina Figueroa, DO Medication Hbocgyro37/27/2025bstract [facility] [address] [place] [phone] Luisito Seymour, DPM 09/25/2025bstract [facility] [address] [place] [address] Luisito Seymour, DPM 08/15/2025Refill [facility] [address] [place] [address] Monica Tee LPN Type 2 diabetes mellitus with peripheral neuropathy (HCC)from Last 3 Months Immunizations ImmunizationAdministration DatesNext DueInfluenza, High Dose Seasonal, Preservative Free10/16/2022Influenza, Nstkvljcjdx42/17/2022,12/02/2016, 09/08/2012Influenza, injectable, quadrivalent, preservative free08/30/2019 Influenza, seasonal, yzkzcdpbuz49/01/2019,08/30/2018Influenza, seasonal, injectable, preservative free08/30/2018,12/02/2016Influenza, seasonal, intradermal, preservative free08/30/2021Moderna SARS-CoV-2 Booster Vaccination 09/25/2021Moderna SARS-CoV-2 Xgvxhkoigpx45/28/2021neumococcal Conjugate PCV 13 12/02/2016Pneumococcal Polysaccharide LQKC0773,10/15/2016Tdap1 Zoster, Clfulotomsu23/28/2023,10/28/2022 Family History Medical HistoryRelationNameCommentsDiabetesBrotherNo Known ProblemsDaughter Atrial fibrillationFatherCoronary artery diseaseFatherDementiaFatherHeart diseaseFatherHypertensionFatherParkinsonismFatherSleep apneaFatherAsthmaMother HypertensionMotherSleep apneaMotherDiabetesPaternal GrandfatherDiabetesPaternal GrandmotherDiabetesSiblingHypertensionSonRelationNameStatusCommentsBrotherAlive2 ChildAlive2 sons 1 daughterDaughterAliveFatherDeceasedMotherAlivePaternal GrandfatherDeceasedPaternal GrandmotherDeceasedSiblingAlive2 brothersSonAlive2 Social History Tobacco UseTypesPacks/DayYears UsedDateSmoking Tobacco: NeverSmokeless Tobacco: Never Tobacco Cessation:Counseling Given: Not Answered Alcohol UseStandard Drinks/WeekCommentsNever0 (1 standard drink = 0.6 oz pure alcohol)caffeine: 1-2 cups per day niwcldV2763 Health LiteracyAnswerDate RecordedHow often do you need [...] week07/26/2025How often do you attend pentecostalism or pentecostal services?More than 4 times per year07/26/2025Do you [...] at all 07/26/2025PHQ-2AnswerDate RecordedPatient Health Questionnaire-2 Score0 10/24/2025[facility] [place] [facility] - Occupational Stress QuestionnaireAnswerDate RecordedDo you feel stress - tense, restless, nervous, or anxious, or unable to sleep at night because yourmind is troubled all the time - these days?To some rbbupb7302/08/2024Exercise Vital SignAnswerDate Recorded On average, how many days per week do you engage in moderate to strenuous exercise (like a brisk walk)?Patient pwtsyrmo83/11/2024On average, how many minutes do you engage in exercise at this level?Patient pcsboqyj54/11/2024Hunger Vital SignAnswerDate RecordedWithin the past 12 months, [...] steady place to sleep or slept in [facility] (including now)?No 02/08/2024Housing Stability Vital SignAnswerDate RecordedIn the last 12 months, was there a time when you were not able to pay the mortgage or rent on time?No 07/26/2025In the past 12 months, how many times have you moved where you were living?t any time in the past 12 months, were you homeless or living in a [facility] (including now)?No07/26/2025CommentsUnknownSex and Gender InformationValueDate RecordedSex Assigned at CafugTjscnd26/21/2023 8:32 AM EDT Legal LgjRjwikt05/15/2023 7:19 PM EDTGender OtqmoqxzUbpjzh03/21/2023 8:32 AM EDT Sexual OrientationNot on file Last Filed Vital Signs Vital SignReadingTime TakenCommentsBlood Lemmthic365/7810/24/2025 10:24 AM EST Akpwk043410/24/2025 10:24 AM YEGHccgjqnrcoj05.5 ??C (97.7 ??F)10/24/2025 10:24 AM ESTRespiratory Rate--Oxygen Udbwsmtsqr14%10/24/2025 10:24 AM ESTInhaled Oxygen Concentration--Dtqpnu129 kg (222 lb 3.2 oz)05/15/2025 10:29 AM KFHYcacpu421.6 cm (5' 6 )10/24/2025 10:24 AM ESTBody Mass Index35.8605/15/2025 10:29 AM EDT Plan of Treatment DateTypeDepartmentCare Team (Latest Contact Info)Iigaurfebyj00/24/2026 8:45 AM ESTOffice Visit [facility] [address] [place] [address] Shaina Figueroa, DO [address] [place] [address] Health MaintenanceDue DateLast DoneCommentsCT Sjmotulemphz1960Colonoscopy 1960Colorectal Cancer Uoqzxezdt1960FIT-DNA1960FIT1960 FOBT1960 2211Zrjonducikyzv1960Pap Smear1981Cervical Cancer Khklsfmxv55/03/1990HPV/Ifvnsb6711/01/19909882Dheglyczv86/03/2000COVID-19 Vaccine ( season), 10/16/2022, 09/26/2021, Additional history existsInfluenza Vaccine (#1), 10/16/2022, 08/30/2021, Additional history existsPneumococcal Vaccine: Pediatrics (0 to 5 Years) and At- Risk Patients (6 to 64 Years)Aged Out12/02/2016, 11/30/2016, 10/15/2016No longer eligible based on patient's age to complete this topic Procedures Procedure NamePriorityDate/TimeAssociated DiagnosisCommentsPOCT GLYCOSYLATED HEMOGLOBIN (HGB A1C)Kwcqtkk5710/24/2025 10:41 AM EST Type 2 diabetes mellitus with peripheral neuropathy (HCC) from Last 3 Months Results * POCT glycosylated hemoglobin (Hb A1C) docked device (10/24/2025 10:41 AM EST) ComponentValueRef RangeTest MethodAnalysis TimePerformed AtPathologist SignatureHemoglobin A1C7.5Specimen (Source)Anatomical Location / Laterality Collection Method / VolumeCollection TimeReceived TimeBloodVenous blood specimen / Sqlvxqs3410/24/2025 10:41 AM EST Narrative Authorizing ProviderResult TypeResult StatusAlllucia Figueroa DOPOINT OF CARE TEST ENTER/EDIT ORDERABLESFinal Result from Last 3 Months Insurance Care Teams Team MemberRelationshipSpecialtyStart DateEnd Date Charan Delgadillo DO [address] [place] [address] PCP - [facility]05/20/23
--- OUTSIDE RECORDS SUMMARY | 2025-11-01 10:08 | XMS_ITS | Clinical Summary ---
Author Organization [facility] Address [address] [place] [address] Phone Care Team Providers Care Batch Trucker Name Role Phone Charan Delgadillo DO Primary Care Provider [phone] Rosalinda Cordova MD Unavailable [phone] Allergies Active AllergyReactionsCriticalityNoted DateCommentsErythromycin Base Nausea//05/2024LevofloxacinNausea/xvmjhmpbZfkz77/25/2024 Head ache Medications MedicationSigDispense QuantityRefillsLast FilledStart DateEnd DateStatus allopurinol (Zyloprim) 100 mg tablet Take 1 tablet (100 mg) by mouth once daily.02/07/2022ctive ascorbic acid (Vitamin C) 1,000 mg tablet Take 1 tablet (1,000 mg) by mouth once daily.Active aspirin 81 mg EC tablet Take 1 tablet (81 mg) by mouth once daily.Active ergocalciferol (Vitamin D-2) 1.25 MG (37493 UT) capsule Take 1 capsule (50,000 Units) [...] 10 mg tablet Indications:Atherosclerotic heart disease of [place] coronary artery without angina pectorisTake 1 tablet [...] 10 mg tablet Indications:Atherosclerotic heart disease of [place] coronary artery without angina pectorisTake 1 tablet (10 mg) by mouth 3 (three) times a week. 36 tablet 12:43 PM EDT1Discontinued Active Problems ProblemNoted DateDiagnosed DateClass 2 obesity with body mass index (BMI) of 37.0 to 37.9 in adult02/22/2024AD (coronary artery disease)12/04/2023Elevated coronary artery calcium score12/04/2023iabetes blaepqjt02/05/2024Essential rrotcoybgdan09/05/1849Sluabsvtxxxsdi80/05/2024Obstructive sleep apnea syndrome 12/04/2023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12/04/2023 Encounters DateTypeDepartmentCare GlkhXmdjddemlsz07/10/2025Refill [address] [address] Rosalinda Cordova MD Atherosclerotic heart disease of [place] coronary artery without angina pectoris; Chest pain, unspecifiedfrom Last 3 Months Immunizations ImmunizationAdministration DatesNext DueInfluenza, seasonal, injectable 10/16/2022Moderna SARS-CoV-2 Nkzmnfqlabf17/17/2022neumococcal conjugate vaccine, 13-valent (PREVNAR 13)12/02/2016Pneumococcal polysaccharide vaccine, 23-valent, age 2 years and older (PNEUMOVAX 23)11/30/2016,10/15/2016 Family History Medical HistoryRelationNameCommentsCABGFatherRelationNameStatusCommentsFather Social History Tobacco UseTypesPacks/DayYears UsedDateSmoking Tobacco: NeverSmokeless Tobacco: Never Tobacco Cessation:Counseling Given: Not Answered Alcohol UseStandard Drinks/WeekCommentsNever0 (1 standard drink = 0.6 oz pure alcohol)CommentsUnknownSex and Gender InformationValueDate RecordedSex Assigned at BirthNot on fileLegal FomNmpslt80/26/2022 10:20 AM ESTGender IdentityNot on fileSexual OrientationNot on file Last Filed Vital Signs Vital SignReadingTime TakenCommentsBlood Ytocdzsv877/80008/25/2024 8:35 AM EDT Ifhje5421/26/2024 8:35 AM EDTTemperature--Respiratory Rate--Oxygen Saturation-- Inhaled Oxygen Concentration--Comjov595 kg (241 lb)08/25/2024 8:35 AM EDTHeight 170.2 cm (5' 7 )08/25/2024 8:35 AM EDTBody Mass Index37.75008/25/2024 8:35 AM EDT Plan of Treatment DateTypeDepartmentCare Team (Latest Contact Info)Xnvzejlrhiv82/03/2026 8:50 AM ESTOffice Visit [address] [phone] Rosalinda Cordova MD [address] [facility] [address] [place] [address] Health MaintenanceDue DateLast DoneCommentsCT Acfbeibafdyt1960Diabetes: Hemoglobin A1C1960Diabetes: Urine Protein Mrnlpwvsl1960FIT-DNA (Cologuard)1960FIT1960HIV Dsknuvgmg1960Lipid Panel1960 Medicare Annual Wellness Visit (AWV)1960 6256Nnhesrmvgzhje1960MMR Vaccines (1 of 1 - Standard series)1Diabetes: Retinopathy Screening 1970Hepatitis C Exdosmuir13/03/1978Cervical Cancer Hkbhjlhmw42/03/1981 HPV/Bndirk3011/01/1981Pap Smear11/01/19811548Jwjzkeupm79/03/2000RSV High Risk: (Elderly (60+) or Population) (1 - Risk 50-74 years 1-dose series) 2010Pneumococcal Vaccine (3 of 3 - PCV20 or PCV21)/01/2017, 11/30/2016, 10/15/2016DTaP/Tdap/Td Vaccines (2 - Td or Tdap)/08/2012 Influenza Vaccine (#1), 08/30/2021, 08/30/2019, Additional history existsCOVID-19 Vaccine ( season), 10/16/2022, 09/25/2021, Additional history ovvknkFdwjvmeexim11 Colorectal Cancer Tuqxzllyn46/07/2033Zoster UndqmqmuCcbqszpkc32/28/2023, 10/28/2022HIB VaccinesAged OutNo longer eligible based on [...] GeneralFamily Medicine02/22/24 Rosalinda Cordova MD [address] [facility] [address], [place] [id number] Consulting PhysicianCardiology02/22/24
--- OUTSIDE RECORDS SUMMARY | 2025-11-01 10:08 | XMS_ITS | Clinical Summary ---
Author Organization [facility] Address [address] [place], [place] [address] Care Team Providers Care Revenue Specialist Name Role Phone Charan Delgadillo DO Primary Care Provider [phone] Allergies Active AllergyReactionsCriticalityNoted DateCommentsErythromycinGI Upset 11/12/2012 Medications [...] Date RecordedSex Assigned at BirthNot on fileLegal EffKvwzzn90/02/2012 8:57 AM ESTGender IdentityNot on fileSexual OrientationNot on file Last Filed Vital Signs Vital SignReadingTime TakenCommentsBlood Ouxrnvkk358/72012/23/2012 1:14 PM EST Lyxfl834212/23/2012 1:14 PM QLEEigpmdinnvb07.7 ??C (98.1 ??F)12/08/2012 6:43 AM ESTRespiratory Unab103612/08/2012 6:43 AM ESTOxygen Fentqvaiex37%12/08/2012 6:43 AM ESTInhaled Oxygen Concentration--Nafmhn49 kg (216 lb 1.6 oz)12/23/2012 1:14 PM PAUVbpuez720.2 cm (5' 7 )11/29/2012 10:21 AM ESTBody Mass Index33.85 11/29/2012 10:21 AM EST Plan of Treatment Health MaintenanceDue DateLast DoneCommentsAnxiety Sbmakgdza76/03/1978Depression Qpugwhccp49/03/1978HIV Vbyczwozn27/03/1978Hepatitis C Gzgqgrust42/03/1978 DTaP,Tdap,Td Vaccine (1 - Tdap)1979Mammogram Zimxjchvb81/03/2000CT Opsqxfpvduwh20/03/2005Cologuard (FIT-DNA)11/01/20058412Nisbbqybnua60/03/2005 Colorectal Cancer Ubdokemrj42/03/2005Fecal Occult Blood2005Lipid Screening 11/01/20058023Yyikyeiavulfe90/03/2005Pneumococcal Vaccine: 50+ (1 of 1 - PCV) 2010Shingrix Vaccine (1 of 2)2010Diabetes Zgfqtllcv72/31/2015 11/29/2012Covid-19 Vaccine (1 - season)2025Influenza Vaccine (#1) 2025dvance Directive Hiczpjecer31/03/2025one Density Hxlfxuqde99/03/2025 RSV Vaccine (1 - 1-dose 75+ series)2035 Procedures Procedure NamePriorityDate/TimeAssociated DiagnosisCommentsBASIC METABOLIC PANEL Paczzxa7411/29/2012 10:11 AM EST Hyperparathyroidism, unspecified Preoperative examination, unspecified from Last 3 Months or Most Recently Relevant to Health Maintenance Results * (ABNORMAL) BASIC METABOLIC PNL (11/29/2012 10:11 AM EST)ComponentValueRef RangeTest MethodAnalysis TimePerformed AtPathologist EzmimxefnBuhjmmr007(H)65 - 100 mg/dLGL[facility]BEIGH [facility] JSGMKVNJCSPCK223 - 25 mg/dLGLENBEIGH HOSPITAL LABORATORYCreatinine0.780.70 - 1.40 mg/dLGLENBEIGH HOSPITAL LABORATORY Flmbub402826 - 148 mmol/LCPARKVIEW [facility]ALTH [facility]YAN [facility] LABORATORYPotassium4.43.5 - 5.0 mmol/LCMAIN C[facility]US [facility]IN IEHQDNUASKCoydkerm98(L)98 - 110 mmol/LCPARKVIEW HEALTH [facility]YAN [facility] CLIJOORXCMSJ75954 - 32 mmol/LCMAIN CAMPUS MEDICAL [facility]ENTER MAIN LABORATORYAnion Gap16(H)0 - 15 mmol/LCMAIN CAMPUS MEDICAL [facility]ENTER MAIN JLWPBKLMWBLwewcai27.4(H)8.5 - 10.5 mg/dLGLENBEIGH HOSPITAL LABORATORYeGFR->60[facility] LABORATORYeGFR-All Other Races>60.[facility] Comment: eGFR (Estimated GFR) Units [...] Dexter LUKELABORATORYFinal Result Performing OrganizationAddressCity/State/ZIP CodePhone Number [facility] [address] [place] [address] from Last 3 Months or Most Recently Relevant to Health Maintenance Insurance Care Teams Team MemberRelationshipSpecialtyStart DateEnd Date Charan Delgadillo DO [address] [place] [address] PCP - GeneralFamily Zlcmoljp62/10/12
--- OUTSIDE RECORDS SUMMARY | 2025-11-01 10:32 | XMS_ITS | CCD ---
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 Name Role Phone Charan Casey Unavailable Unavailable Unavailable Blas Ortiz Unavailable Charan Casey Unavailable Thierno Chatterjee Unavailable Renée Watts Unavailable Elpidio Whipple Unavailable Federico Sepulveda Unavailable [phone] DO Charan Casey Primary Care Provider DO Mathieu Paul Emergency Provider DO Charan Casey Other Provider MD Elpidio Whipple Attending Provider ROSS Ceja Attending Provider MD Dipak Amaro Attending Provider [phone] TIMOTEO Watts Attending Provider [phone] DO Charan Casey Primary Care Provider Eliud Rod Unavailable DO Charan Casey Primary Care Provider [phone] TIMOTEO Watts Attending Provider DO Charan Casey Primary Care Provider TIMOTEO Watts Attending Provider MD Federico Sepulveda Attending Provider MD Elpidio Whipple Attending Provider [phone] [employer] CA[employer] Consulting Unavailable DR YEISON [...] Scott Consulting Unavailable WESTBRODERICK V Consulting Unavailable [facility] [place], DR HAIDER Primary Care Unavailable HIGHLANDER, ACOSTA [...] Unavailable Kuns, DO Charan Primary Care Provider [phone] Kuns, DO Charan Attending Provider Kuns, DO Charan Primary Care Provider [phone] MD Blas Ortiz Attending Provider Kuns, DO Charan Primary Care Provider Kuns, DO Charan Attending Provider [phone] MD Thierno Chatterjee Attending Provider Yasmeen Treadwell Unavailable Kuns, DO Charan Primary Care Provider [phone] MD Blas Ortiz Attending Provider [phone] MD Elpidio Whipple Attending Provider Kuns, DO Charan Primary Care Provider MD Thierno Chatterjee Attending Provider MD Blas Ortiz Attending Provider MD Elpidio Whipple Attending Provider MD Yasmeen Treadwell Attending Provider [phone] Blas Bellamy Unavailable Kuns, DO Charan Primary Care Provider MD Blas Ortiz Attending Provider [phone] Kuns, DO Charan Attending Provider [phone] Kuns, DO Charan Primary Care Provider [phone] Kuns, DO Charan Primary Care Provider Kuns Charan BASSETT Primary Care Provider Rosalinda Torres MD Unavailable ROSALINDA TORRES Attending Unavailable CHARAN CASEY MINOR Primary Care Unavailable Kuns, DO Charan Primary Care Provider Kuns, DO Charan Attending Provider MD Blas Ortiz Attending Provider [phone] Kuns, DO Charan Primary Care Provider Kuns, DO Charan Attending Provider [phone] Kuns, DO Charan Primary Care Provider Kuns, DO Charan Primary Care Provider [phone] MD Blas Ortiz Attending Provider [phone] Kuns, DO Charan Primary Care Provider ROSS Castro Attending Provider Self, Referral Attending Provider Unavailable MD Blas Ortiz Attending Provider Kuns DO, Charan Primary Care Provider Acosta Castro DPM Attending Provider Self, Referral Attending Provider Unavailable Blas Ortiz MD Attending Provider [phone] Charan Casey MD Primary Care Provider Moni Becker MD Unavailable Kunbryn BASSETT, Charan P Primary Care Provider [phone] Kuns DO, Charan Primary Care Provider Nader Curry DO Attending Provider [phone] KunCharan clemente DO Attending Provider Kuns DO, Charan Primary Care Provider Blas Ortiz MD Attending Provider Kuns Charan BASSETT Primary Care Provider Nader Curry DO Attending Provider Nader Curry DO Attending Provider Jacinto BASSETT, Charan Primary Care Provider Charan Casey DO Attending Provider [phone] Nader Curry DO Attending Provider [phone] Jacinto DO, Charan Primary Care Provider [phone] Jacinto BASSETT, Charan P Primary Care Provider Kuns DO, Charan Primary Care Provider Brysons DO, Charan Attending Provider [phone] Blas Ortiz MD Attending Provider Jacinto BASSETT, Charan Primary Care Provider [phone] Acosta Castro DPM Attending Provider [phone] Blas Ortiz Admitting Unavailable Blas Ortiz Attending [...] Unavailable Charan Casey DO Primary Care Provider Allergies Allergy ClassificationReported Allergen(s)Allergy TypeDate of OnsetReaction(s) FacilityLincosamides (antibiotic) (1 source)ClindamycinDrug Akicjcd98-03-6537bkex [facility] CenterQuinolones (antibiotic) (1 source)levoFLOXacinDrug Dwclnfw49-48-0886bzypvhvdxxfuUoqnfyqfp [facility] (20 sources)Erythromycin; Translations: [Erythromycin Base TABS]Drug Allergy 62-03-2156olkxdo, Nausea/vomiting, UnknownUnPark[facility] Health (20 sources)ClindamycinDrug Xaicglu46-22-8895mqez [facility] (20 sources)arzithomycinPropensity to adverse lfolrynaw43-50-2400opesfqw [facility] (20 sources)erythromycin base; Translations: [Erythromycin Base]Propensity to adverse nmvpxnqmu66-17-8746Ytcqiq OnlyGe[facility] (2 sources)levoFLOXacinDrug AllergyhypoglycemiaNort [facility] Other (20 sources)levoFLOXacin; Translations: [LEVOFLOXACIN]Drug Pitexkp30-24-3117 Nausea/vomiting, GI intoleranceGeorgetown Behavioral Hospital Medications Current Medications MedicationDrug Class(es)DatesSig (Normalized)Sig (Original)allopurinol 100 mg oral tablet (20 sources)Xanthine Oxidase InhibitorStart: 06-15-2020 End: 63-41-2671cxpz 1 tablet by mouth in the morningallopurinol [...] sources)Platelet Aggregation Inhibitor, Nonsteroidal Anti-inflammatory Drug Start: 58-63-2267qbkz 1 tablet by mouth once daily in [...] Sensor (Dexcom G7 Sensor) device (19 sources)Start: 34-85-2880Ewisy-Glucose Sensor (Dexcom G7 Sensor) device Active 0 .Route September 11, 2024 11:00pm As directedStart: 63-47-5946Xdods- Glucose Sensor (Dexcom G7 Sensor) device Active [...] 0.05 mg oral capsule (20 sources)Vitamin DStart: 99-41-3368pchl 1 capsule by mouth once daily Cholecalciferol (Vitamin D3) 50 mcg (2,000 unit) capsule Active 50 MCG PO Daily March 01, 2024 12:00am Complies with drug therapyStart: 05-84-8497NIQ Vitamin D Maximum Strength 50 MCG (2000 UT) tablet Take by mouth Daily. 12/30/2022 Active clotrimazole 10 mg oral lozenge (1 source)Azole AntifungalStart: 47-28-2498Cbqagwlerzan 10 mg deshawn Active 10 MG MUCOUS MEM Five times daily July 12, 2025 12:00am Complies with drug therapyCoenzyme Q10 (CO Q 10 PO) (6 sources)Coenzyme Q10 (CO Q 10 PO) Take by mouth ActiveContinuous Blood Gluc Camp Advisor (Dexcom G7 Camp Advisor) device (9 sources)Start: 59-67-4570Owmbgfltgv Blood Gluc Camp Advisor (Dexcom G7 Camp Advisor) device USE DIRECTED 07/16/2023 ActiveContinuous Blood Gluc Sensor (Dexcom G7 Sensor) misc (9 sources)Start: 84-09-4971Dylhectxrl Blood Gluc Sensor (Dexcom G7 Sensor) misc USE DIRECTED, CHANGE EVERY 10 DAYS 08/18/2023 ActiveCoQ-10 (15 sources)CoQ-10 ActiveCoQ-10 100 MG (6 sources)CoQ-10 100 MG as directed Orally ONCE A DAY ActiveDexcom G6 Camp Advisor - (20 sources)Start: 21-81-8655Zdrkse G6 Camp Advisor - use as directed to monitor dexcom sensor Feb, ActiveStart: 96-99-5964Hxzelj G6 Sensor - (20 sources)Start: 91-22-5621Qelbem G6 Sensor - as directed change q 10 days for 90 days Feb, ActiveStart: 02-41-3890Mpbfui G6 Sensor - as directed change q 10 days Feb, ActiveStart: 20-57-6759Jltbwh G6 Transmitter - (20 sources)Start: 37-51-3066Jfiedx G6 Transmitter - as directed change Q 3 months Feb, ActiveStart: 99-42-7797Vzqspl G7 Camp Advisor - (20 sources)Start: 62-56-8874Sjfrmx G7 Camp Advisor - as directed as directed as directed Jun, ActiveDexcom G7 Sensor - (20 sources)Start: 19-51-3531Nvwilv G7 Sensor - as directed as directed change every 10 days for 90 days Jun, ActiveStart: 78-24-5514Hmwhbm G7 Sensor - as directed as directed change every 10 days for 30 days Jun, Active diclofenac sodium 20 mg/ml topical solution (20 sources)Nonsteroidal Anti-inflammatory DrugStart: 22-19-3155Oxbigylm 2 % 2 pumps to affected area Transdermal Twice a day Aug, ActiveStart: 92-06-9122ggctbcuoxbtyhi 1.25 mg oral capsule (20 sources)Provitamin D2 CompoundStart: 02-30-4768aofi 1 capsule by mouth once dailyergocalciferol (Vitamin D-2) 1.25 MG (14491 UT) capsule Take 1 capsule (50,000 Units) by mouth oncedaily. 08/29/2021 ActiveStart: 38-52-6210mhrb 1 tablet by mouth two times weeklyVitamin D (Ergocalciferol) 1.25 MG (26922 UT) Oral Capsule Take 1 tablet twice weekly Quantity: 0 Refills: 0 Ordered: 14-Jan-2022 DO Start : 29-Aug-2021 ActiveStart: 06-15-2020 End: 92-69-2040nyts 1 capsule by mouth every weekErgocalciferol (Vitamin D2) 1,250 mcg (50,000 unit) Capsule Discontinued 1250 MCG PO every week June 15, 2020 12:00am March 01, 2024 9:34am thursdaytake 1 capsule by mouth every week Ergocalciferol 78465 UNIT 1 capsule Orally Q week Activetake 1 capsule by mouth every weekErgocalciferol 42762 UNIT 1 capsule Orally Q week ActiveEster-C - (20 sources)Brooke-C - as directed Orally Activefluticasone propionate 0.05 mg/actuat metered dose nasal spray (10 sources)CorticosteroidStart: 13-01-5680mzng 1 spray(s) nasal route twice dailyFluticasone Propionate 50 MCG/ACT 1 spray in each nostril Nasally Twice a day for 14 days Sep, ActiveStart: 38-87-1036bqrd 1 spray(s) nasal route twice dailyFluticasone Propionate 50 MCG/ACT 1 spray in each nostril Nasally Twice a day for 14 days Sep, Active3 ml insulin degludec 200 unt/ml pen injector (18 sources)Insulin AnalogStart: 61-47-7993qkxxahl degludec (Tresiba FlexTouch) 200 UNIT/ML injection Indications: Type 2 diabetes mellitus with peripheral neuropathy (HCC) Inject 30 Units under the skin Daily 9 mL 3 07/27/2025 Active Start: 70-41-9876fklekxk degludec (Tresiba FlexTouch) 200 UNIT/ML injection Indications: Type 2 diabetes mellitus with peripheral neuropathy (HCC) Inject 30 Units under the skin Daily 9 mL 3 07/27/2025 ActiveStart: 02-16-2025 End: 69-92-3597Rrvgqzk Degludec 200 unit/mL (3 mL) insulin pen Discontinued UNIT SUBCUT February 16, 2025 12:00am March 06, 2025 8:16amStart: 02-14-2025 End: 84-29-1359hucbnmd degludec (Tresiba FlexTouch) 200 UNIT/ML injection Indications: Type 2 diabetes mellitus with peripheral neuropathy (HCC) Inject 60 Units under the skin Daily 9 mL 3 02/14/2025 07/27/2025 Discontinued (Dose adjustment)Insulin Degludec 200 unit/mL (3 mL) insulin pen (5 sources)Start: 11-33-8817Qydedow Degludec 200 unit/mL (3 mL) insulin pen Active 60 UNIT SUBCUT Daily March 06, 2025 8:13amStart: 02-16-2025 End: 42-88-0472Zmssjdh Degludec 200 unit/mL (3 mL) insulin pen Discontinued UNIT SUBCUT February 16, 2025 12:00am March 06, 2025 8:16amStart: 77-99-0694Qnwhmmp Degludec 200 unit/mL (3 mL) insulin pen Active UNIT SUBCUT February 16, 2025 12:00am3 ml insulin lispro 100 unt/ml pen injector (20 sources)Insulin AnalogStart: 01-48-4488JucpKFD KWIKPEN 100 UNIT/ML injection Indications: Type 2 diabetes mellitus with peripheral neuropathy (HCC) 10 units breakfast, 14 units dinner plus correction 1:30 > 150 mg/dl (max daily 50 units ) 15 mL 3 08/15/2025 ActiveStart: 02-16-2025 End: 74-73-8654zxazwqk lispro (HumaLOG KWIKPEN) 100 UNIT/ML injection Indications: Type 2 diabetes mellitus with peripheral neuropathy (HCC) 10 units breakfast, 14 units dinner plus correction 1:30 > 150 mg/dl (max daily 50 units) 15 mL 3 05/15/2025 ActiveStart: 10-22-4990dtfdhxo lispro (HumaLOG) 100 UNIT/ML injection Indications: Type 2 diabetes mellitus with peripheral neuropathy (CMS/HCC) 5 units breakfast and dinner 15 mL 3 06/21/2024 ActiveStart: 23-41-4869odkpok 100 [IU] by subcutaneous injection at bedtimeInsulin Lispro (1 Unit Dial) 100 UNIT/ML Subcutaneous Solution Pen-injector ADMINISTER 5-6 UNITS SUBCUTANEOUSLY IN THE MORNING AND at bedtime Quantity: 12 Refills: 0 Ordered: 06-Apr-2023 DO Start : 06-Apr-2023 ActiveStart: 03-25-2022 End: 42-52-5285loeqed 100 [IU] by subcutaneous injection once daily at bedtime as neededInsulin Lispro (Humalog Kwikpen Insulin) 100 unit/mL insulin pen Discontinued 5 - 6 UNIT SUBCUT Twice daily February 23, 2024 5:04pm February 16, 2025 9:40am once a day in the morning and PRN QHSStart: 07-25-2020 End: 45-77-6973txfrxt 5 [IU] by subcutaneous injection once daily at breakfast Insulin Lispro (Humalog Kwikpen Insulin) 100 unit/mL Insulin Pen Discontinued 5 UNIT SUBCUT Daily with breakfast July 25, 2020 12:00am February 23, 2024 5:05pmStart: 06-15-2019 End: 22-59-8301xrsxxs 5 [IU] by subcutaneous injection once daily [...] Insulin) 100 unit/mL insulin pen (20 sources)Start: 15-32-5065Vunodiv Lispro (Humalog Kwikpen Insulin) 100 unit/mL insulin pen Active 8 - 12 UNIT SUBCUT Twice daily February 16, 2025 9:38am 8 units AM 12 units in the Afternoon and 12 units in the eveningStart: 02-23-2024 End: 54-17-7741tzgfph 100 [IU] by subcutaneous injection once daily at bedtime as neededInsulin Lispro (Humalog Kwikpen Insulin) 100 unit/mL insulin pen Discontinued 5 - 6 UNIT SUBCUT Twice daily February 23, 2024 5:04pm February 16, 2025 9:40am once a day in the morning and PRN QHSStart: 07-56-2185qngebc 100 [IU] by subcutaneous injection once daily at bedtime as neededInsulin Lispro (Humalog Kwikpen Insulin) 100 unit/mL insulin pen Active 5 - 6 UNIT SUBCUT Twice daily February 23, 2024 4:04pm once a day in the morning and PRN QHSStart: 25-48-0915nvrnig 100 [IU] by subcutaneous injection once daily at bedtime as neededInsulin Lispro (Humalog Kwikpen Insulin) 100 unit/mL insulin pen Active 5 - 6 UNIT SUBCUT Twice daily February 23, 2024 5:04pm once a day in the morning and PRN QHS3 ml insulin, regular, human 500 unt/ml pen injector (20 sources)InsulinStart: 76-11-8262nbhoeoq regular (HumuLIN R U-500 KWIKPEN) 500 UNIT/ML CONCENTRATED injection Indications: Type 2 diabetes mellitus with peripheral neuropathy (CMS/HCC) 55 units breakfast and 25 units dinner 6 mL 3 ActiveStart: 03-01-2024 End: 37-20-6804Dxajmwl Regular Hum U-500 Conc (Humulin R U-500 (Conc) Kwikpen) 500 unit/mL (3 mL) insulin pen Discontinued 55 UNIT SUBCUT Twice daily March 01, 2024 9:35am February 16, 2025 9:37amStart: 02-23-2024 End: 89-47-6940xvjmeh 60 [IU] by subcutaneous injection in the morning, then inject 30 [IU] by subcutaneous injection in the eveningInsulin Regular Hum U-500 Conc (Humulin R U-500 (Conc) Kwikpen) 500 unit/mL (3 mL) insulin pen Disco ntinued 0 SUBCUT As Directed February 23, 2024 5:09pm March 01, 2024 9:42am 60 units in the morning and 30 units in the evening subcutaneously as directed; Start: 29-58-2769jxlipuz regular (HumuLIN R U-500 KWIKPEN) 500 UNIT/ML CONCENTRATED injection Indications: Type 2 diabetes mellitus with peripheral neuropathy (CMS/HCC) 55 units breakfast and 25 units dinner 3 mL 10/12/2023 ActiveStart: 25-25-4012xhlkjb 60 [IU] by subcutaneous injection in the morning, then inject 30 [IU] by subcutaneous injection in the eveningHumuLIN R U-500 KwikPen 500 UNIT/ML Subcutaneous Solution Pen-injector ADMINISTER 60 UNITS IN THE MORNING AND 30 UNITS IN THE EVENING Quantity: 12 Refills: 0 Ordered: 06-Apr-2023 DO Start : 5-Rnt-3839IfxoplFvqge: 02-11-2018 End: 60-43-7452Vcxochc Regular Hum U-500 Conc (Humulin R U-500 (Conc) Insulin) 500 unit/mL solution Discontinued 80 UNIT SUBCUT Daily with breakfast February 11, 2018 11:16am February 12, 2024 12:28pm Patient varies dosage depending on dietary intakeStart: 02-11-2018 End: 16-36-2662islsme 40 [IU] by subcutaneous injection once dailyInsulin Regular Hum U-500 Conc (Humulin R U-500 (Conc) Insulin) 500 unit/mL solution Discontinued 40 UNIT SUBCUT Daily with supper February 11, 2018 11:16am February 12, 2024 12:29pm Pt. varies dosage according to dietary intake.Start: 01-21-2018 End: 15-91-8981vzqjdr 1 dose by subcutaneous injection four times [...] hs if glucose >225. Please contact the [employer] source for Protocol details.Start: 01-21-2018 End: 70-00-2079Rxzvask Regular Hum U-500 Conc (Humulin R U-500 (Conc) Kwikpen) 500 unit/mL (3 mL) Insulin Pen Discontinued 0 .ROUTE .COMPLEX January 21, 2018 1:00am February 11, 2018 11:17am Check glucose ac, hs.Use corrective scale ac tid. Use hs if glucose >225. Please contact the information source for Pr otocol details.Start: 01-17-2018 End: 36-90-7435Ikkfegh Regular Hum U-500 Conc (Humulin R U-500 (Conc) Insulin) 500 unit/mL solution Discontinued 90 UNIT SUBCUT Daily with breakfast 0 January 21, 2018 8:54am February 11, 2018 11:16am If eatingStart: 12-25-2017 End: 71-57-5095Tgehmjj Regular Hum U-500 Conc (Humulin R U-500 (Conc) Insulin) 500 unit/mL Solution Discontinued 80 UNIT SUBCUT Daily with supper 0 January 02, 2018 6:07pm January 17, 2018 1:34amStart: 12-25-2017 End: 71-38-9100Edhhlwl Regular Hum U-500 Conc (Humulin R U-500 (Conc) Insulin) 500 unit/mL Solution Discontinued 100 UNIT SUBCUT Daily with breakfast 0 January 03, 2018 3:07pm January 17, 2018 1:34amStart: 12-25-2017 End: 21-48-9633hqskyf 100 [IU] by subcutaneous injection once daily before breakfastInsulin Regular Human (Humulin R U-100) 100 unit/mL Solution Discontinued 100 UNITS SUBCUT Daily before breakfast December 25, 2017 1:00am December 25, 2017 3:53pmStart: 12-25-2017 End: 19-49-0065zjbjtd 80 [IU] by subcutaneous injection once dailyInsulin [...] (Probiotic) 3 billion cell capsule (1 source)Start: 09-07-3764sfym 3 capsules by mouth once dailyLactobacillus Combination No.4 (Probiotic) 3 billion cell capsule Active 3000 MMU CELLS PO Daily July 12, 2025 12:00am administer with a meal Complies with drug therapylevoFLOXacin 500 mg oral tablet (3 sources)Quinolone AntimicrobialStart: 92-63-7763bkaj 1 tablet by mouth every twenty-four hourslevoFLOXacin 500 MG 1 tablet Orally Once a day for 7 days Nov, Activelinezolid 600 mg oral tablet (1 source)Oxazolidinone AntibacterialStart: 92-18-8384encx 1 tablet by mouth twice dailyLinezolid 600 mg tablet Active 600 MG PO Twice daily July 12, 2025 12:00am Complies with drug therapymagnesium glycinate 100 mg oral tablet (20 sources)Start: 59-18-7724Jmkbuwvgk Glycinate 100 mg Tablet Active 600 MG PO Daily at bedtime June 17, 2019 12:00am Complies with drug therapyStart: 93-26-4934gasu 600 mg by mouth once daily at bedtimeMagnesium Glycinate Active 600 MG PO Daily at bedtime June 17, 2019 12:00amStart: 01-19-2018 End: 38-73-4597Ujgkbbbxl Glycinate 100 mg Tablet Discontinued 600 MG PO Daily at bedtime January 19, 2018 1:00am February 11, 2018 11:15amStart: 01-19-2018 End: 47-08-2188wbbq 600 mg by mouth once daily at bedtimeMagnesium Glycinate Discontinued 600 MG PO Daily at bedtime January 19, 2018 1:00am February 11 11:15amMagnesium Glycinate Plus 600 mg (20 sources)Magnesium Glycinate Plus 600 mg 1 tablet QHS Activenitroglycerin 0.4 mg sublingual tablet (20 sources)Nitrate VasodilatorStart: 13-26-1542Htoykdmucriqj 0.4 mg tablet, sublingual Active 0.4 MG BUCCAL As Directed as needed for Chest Pain March 25, 2022 12:00am Complies with drug therapyStart: 03-68-8072lvpujcuvctmzd (Nitrostat) 0.4 mg SL tablet Indications: Chest pain, unspecified DISSOLVE 1 TABLET UNDER THE TONGUE EVERY 5 MINUTES NEEDED FOR CHEST PAIN. DO NOT EXCEED A TOTAL OF 3 DOSES IN 15 MINUTES. GO TO THE ER IF PERSISITS. 90 tablet 1 12/24/2023 ActiveStart: 50-55-9494Wywgdvramocbi Active 0.4 MG BUCCAL As Directed March 24, 2022 11:00pmomega-3 acid ethyl esters (fdc) 1000 mg oral capsule (20 sources)Start: 87-23-4732ykvl 1 capsule by mouth in the morningomega-3 acid ethyl esters (Lovaza) 1 g capsule Take 2 g by mouth in the morning and 2 g before bedtime. 03/04/2023 ActiveStart: 06-15-2019 End: 63-56-5577Biqkg-3 Acid Ethyl Esters (Lovaza) 1 gram capsule Discontinued 2 CAP PO Twice daily 360 90 September 23, 2024 11:59am April 11, 2025 4:11pmStart: 12-25-2017 End: 84-04-5048Ybxjr-3 Acid Ethyl Esters (Lovaza) 1 gram Capsule Discontinued 2 CAP PO Twice daily December 25, 2017 1:00am January 03, 2018 3:03pmomega-3 acid ethyl esters (Lovaza) 1 gram capsule Take 1 capsule (1 g) by mouth twice a day. ActivePen Needle, Diabetic (2 sources)Start: 96-92-9788Tkx Needle, Diabetic Active 0 .Route September 12, 2024 1:53pm As directedStart: 09-12-2024 End: 15-61-9313Yod Needle, Diabetic Discontinued 0 .Route September 12, 2024 12:00am September 12, 2024 1:53pmAs directedpolyethylene glycol 3350 729840 mg / potassium chloride 2970 mg / sodium bicarbonate 6740 mg / sodium chloride 5860 mg / sodium sulfate 18325 mg powder for oral solution (2 sources)Osmotic LaxativeStart: 49-79-0351Wyrszwjm 236 GM At 4:00 pm the day prior to colonoscopy Orally 8 ounces every 15 minutes for 1 daysPLEASE CHECK ALLERGIES Jul, Activepregabalin 150 mg oral capsule (20 sources)Start: 01-09-2025 End: 13-24-5607nhix 1 capsule by mouth twice dailyPregabalin (Lyrica) 150 mg capsule Active 150 MG PO Twice daily 180 90 January 09, 2025 11:34am Complies with drug therapyStart: 04-40-1128jtlw 1 capsule by mouth once in the morning Pregabalin 75 MG 1 capsule Orally Q AM Dec, ActiveStart: 08-02-2021 Start: 64-32-7364kebv 1 capsule by mouth once in the morningPregabalin 75 MG 1 capsule Orally Q AM Jul, ActiveStart: 04-01-2021 End: 55-09-7109mbit 1 capsule by mouth once dailyPregabalin (Lyrica) 150 mg capsule Discontinued 150 MG PO Daily 90 February 12, 2024 12:34pm February 12, 2024 5:43pmStart: 04-01-2021 End: 71-18-9154ssux 2 capsules by mouth once daily in the morningPregabalin 75 mg capsule Discontinued 150 MG PO Every morning April 01, 2021 12:00am February 12, 2024 12:25pmStart: 06-15-2019 End: 56-63-0800nbxr 1 capsule by mouth once daily at bedtimePregabalin (Lyrica) 300 mg capsule Discontinued 300 MG PO Daily at bedtime 90 February 12, 2024 12 :35pm February 12, 2024 5:46pmStart: 01-21-2018 End: 72-52-5079zmbr 1 capsule by mouth twice dailyPregabalin (Lyrica) 75 mg Capsule Discontinued 75 MG PO Twice daily January 21, 2018 1:00am February 11, 2018 11:16amStart: 12-25-2017 End: 02-04-2526qqtv 1 capsule by mouth twice dailyPregabalin (Lyrica) 300 mg Capsule Discontinued 300 MG PO Twice daily December 25, 2017 1:00am January 03, 2018 3:03pm End: 75-43-6667zxsb 1 capsule by mouth once daily in the morningPREGABALIN ORAL Take 1 capsule by mouth once daily in the morning. 0 02/22/2024 Discontinued (Other)Lyrica CAPS TAKING 150MG IN AM, 300MG IN PM Quantity: 0 Refills: 0 Ordered: 20-Feb-2022 DO ActiveSuper B Complex (20 sources)Super B Complex Activeubidecarenone 300 mg oral capsule (20 sources)Start: 47-90-9478dspw 10 capsules by mouth once dailyCoenzyme Q10 300 mg capsule Active 300 MG PO Daily March 01, 2024 12:00am Complies with drug therapyStart: 63-33-8404phwq 1 capsule by mouth twice dailyCo-Enzyme Q10 100 MG Oral Capsule TAKE 1 CAPSULE TWICE DAILY. Quantity: 180 Refills: 3 Ordered: Rosalinda Torres MD Start : 08-May-2022 ActiveCoQ-10 100 MG as directed Orally ONCE A DAY Activeubiquinol (2 sources)COQ10, UBIQUINOL, ORAL Take by mouth. JkfalnZKN53, UBIQUINOL, ORAL Take by mouth. 0 ActiveVitamin B Complex (20 sources)Start: 58-22-5326gevu 1 tablet by mouth once daily in the morning Vitamin B Complex Active 1 TAB PO Every morning June 15, 2019 12:00amStart: 03-99-1668hzws 1 tablet by mouth once daily in the morningVitamin B Complex Active 1 TAB PO Every morning June 14, 2019 11:00pmVitamin B Complex Tablet (18 sources)Start: 73-99-4724gajc 1 tablet by mouth once daily in the morning Start: 39-06-7442axab 1 tablet by mouth once daily in the morningVitamin B Complex Tablet Active 1 TAB PO Every morning June 15, 2019 12:00am Complies with drug therapyStart: 80-08-1692uoog 1 tablet by mouth once daily in the morningVitamin B Complex Tablet Active 1 TAB PO Every morning June 15, 2019 12:00amStart: 86-39-6003gvca 1 tablet by mouth once daily in the morningVitamin B Complex Tablet Active 1 TAB PO Every morning June 14, 2019 11:00pm Completed/Discontinued Medications MedicationDrug Class(es)DatesSig (Normalized)Sig (Original)Accu-Chek Vicenta as manufactured (20 sources)Start: 99-27-4334Fryt-Chek Vicenta as manufactured four times daily 250.92/V58.67 qid Nov, Not-TakingStart: 66-22-3630Gmhy-Chek Vicenta as manufactured four times daily 250.92/V58.67 qid Nov, ActiveStart: 63-20-9650Tzzw-Chek SmartView as manufactured (20 sources)Start: 31-42-1215Ndog-Chek SmartView as manufactured QID e11.9 QID Nov, Not-TakingStart: 22-49-5696Awvn-Chek SmartView as manufactured QID e11.9 QID Nov, ActiveStart: 18-80-8092yhxlpmmlzaxuc 325 mg / HYDROcodone bitartrate 5 mg oral tablet (20 sources)Opioid AgonistStart: 06-19-2020 End: 45-43-4811asqz 1 tablet by mouth twice daily as needed for painHydrocodone- Acetaminophen ([place]) 5-325 mg tablet Discontinued 1 TAB PO Twice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 limb]Onset: [id number] non-traumatic joint disorders (20 sources)Charcot's joint of foot; Translations: [Charcot's joint, unspecified ankle and foot]57-67-9789RpvttllIufzc non-traumatic joint disorders (20 sources)Arthropathy associated with a neurological disorder; Translations: [Charcot's joint, left ankle andfoot]ChronicOther non-traumatic joint disorders (6 sources)Charcot's joint, left ankle and foot; Translations: [CHARCOTS JOINT LEFT ANKLE AND FO]Onset: 54-38-5069EcdpnppPwnem non-traumatic joint disorders (2 sources)Charcot's joint, right ankle and foot; Translations: [CHARCOTS JOINT RIGHT ANKLE AND F]Onset: 90-63-9083IcmkrmvFqtpi non-traumatic joint disorders (20 sources)Pain in left knee; Translations: [Pain in left knee]EpisodicOther non-traumatic joint disorders (20 sources)Pain in right knee; Translations: [Pain in right knee]EpisodicOther non-traumatic joint disorders (20 sources)Arthralgia of the ankle and/or foot; Translations: [Pain in left ankle and joints of left foot]51-96-3514QabwozznNnknl non-traumatic joint disorders (18 sources)Pain in right shoulder; Translations: [Right shoulder pain]Onset: 701733-79-7434NpmdeczgNehuv non-traumatic joint disorders (13 sources)Joint pain; Translations: [Pain in unspecified joint]01-09-2025 EpisodicOther nutritional; endocrine; and metabolic disorders (20 sources)Obesity; Translations: [Obesity, unspecified]Onset: 02-22-2024 85-00-9305HjtqtoiKegug nutritional; endocrine; and metabolic disorders (20 sources)Hypercalcemia; Translations: [Hypercalcemia]ChronicOther nutritional; endocrine; and metabolic disorders (20 sources)Hypomagnesemia; Translations: [Hypomagnesemia]17-76-9515XhrqhkoUoklo nutritional; endocrine; and metabolic disorders (6 sources)Hypomagnesemia; Translations: [Disorders of magnesium metabolism] ChronicOther nutritional; endocrine; and metabolic disorders (2 sources)Obesity, unspecified; Translations: [Obesity, unspecified]Onset: 24-77-8889AnhttptMbbcs nutritional; endocrine; and metabolic disorders (2 sources)Body mass index (BMI) 37.0-37.9, adult; Translations: [Body mass index (BMI) 37.0-37.9, adult]Onset: 02-90-5884IbnnactRrghf nutritional; endocrine; and metabolic disorders (15 sources)Severe obesity; Translations: [Class 2 severe obesity due to excess calories with serious comorbidity and body mass index (BMI) of 39.0 to 39.9 in adult ([facility])]Onset: 142250-03-8469ZuoaubjNaggq nutritional; endocrine; and metabolic disorders (12 sources)Hyperuricemia without signs of inflammatory arthritis and tophaceous disease; Translations: [Other abnormal blood chemistry]Onset: 12-03-2021 Resolved: 85-79-5788OvutvmkxFfwtd nutritional; endocrine; and metabolic disorders (20 sources)Hyperuricemia; Translations: [Hyperuricemia without signs of inflammatory arthritis and tophaceous disease]54-51-8507YaggdidxPxlsu nutritional; endocrine; and metabolic disorders (20 sources)H/O: metabolic disorder; Translations: [Personal history of other endocrine, nutritional and metabolic disease]86-29-0908JpfpdpazOxgcj screening for suspected conditions (not mental disorders or infectious disease) (20 sources)Cardiovascular finding; Translations: [Abnormal findings on diagnostic imaging of other specified body structures]12-63-8176BxkqmsqBzypk screening for suspected conditions (not mental disorders or infectious disease) (14 sources)Electrocardiogram abnormal; Translations: [Nonspecific abnormal electrocardiogram [ECG] [EKG]]Onset: 60-67-9828BzxuggpmIkful upper respiratory infections (1 source)Acute pansinusitis, unspecifiedEpisodicPancreatic disorders (not diabetes) (20 sources)Pancreatitis; Translations: [Acute pancreatitis without necrosis or infection, unspecified]70-94-1000LqqartfbKparizar codes; unclassified (20 sources)Obstructive sleep apnea syndrome; Translations: [Obstructive sleep apnea (adult)(pediatric)]Onset: 124916-84-0704FtizrvjGgjnmjew codes; unclassified (8 sources)Obstructive sleep apnea (adult) (pediatric); Translations: [Obstructive sleep apnea (adult)(pediatric)]Onset: 02-07-2022 Resolved: 32-74-7561CetunwxTklvvmzn codes; unclassified (20 sources)Sleep apnea; Translations: [Sleep apnea, unspecified]ChronicResidual codes; unclassified (2 sources)Sleep apnea, unspecified; Translations: [SLEEP APNEA UNSPECIFIED] Onset: 62-45-8419PqukoowYxyjarsc codes; unclassified (20 sources)Insomnia; Translations: [Insomnia, unspecified]15-68-7055Ukpaprfc Residual codes; unclassified (2 sources)Other specified postprocedural statesOnset: 04-14-2022 Resolved: 27-73-3003XrsdquipHosnbkki codes; unclassified (3 sources)Insomnia, unspecifiedOnset: 04-30-2022 Resolved: 39-93-5555NcykgsvtOkvghcvb codes; unclassified (14 sources)Family history of dementia; Translations: [Family history of other mental and behavioral disorders]18-15-2163KtlqictxKpcyqmxd codes; unclassified (9 sources)Family history of other mental and behavioral disorders; Translations: [Family history of other neurological diseases]84-49-7703Hpymelqn Septicemia (except in labor) (20 sources)Septic shock; Translations: [Sepsis, unspecified organism]02-17-2018 EpisodicSpondylosis; intervertebral disc disorders; other back problems (20 sources)Cervical spondylosis without myelopathy; Translations: [Spondylosis without myelopathy or radiculopathy, cervical region]Onset: 10-01-2021 Resolved: 36-55-6171MabdjjfMkuoeuqnehh; intervertebral disc disorders; other back problems (20 sources)Neck pain; Translations: [Cervicalgia]Onset: 10-01-2021 Resolved: 82-47-0605UztnnbanIfacvlx and strains (15 sources)Traumatic rupture of biceps tendon; Translations: [Strain of muscle, fascia and tendon of long headof biceps, unspecified arm, initial encounter] 71-83-0328VbdcuetnQkvvlgdduvqh (1 source)CONTACT W/AND (SUSP) EXPOS COVID-19; Translations: [CONTACT W/AND (SUSP) EXPOS COVID-19]Onset: 67-85-0968Mufyhiunsovc (1 source)Cough, unspecified; Translations: [Cough, unspecified]Onset: 12-08-2024 Past or Other Problems Problem ClassificationProblemDateDocumented DateEpisodic/ChronicAcquired foot deformities (3 sources)Varus deformity, not elsewhere classified, left ankle; Translations: [Valgus deformity, not elsewhere classified, left ankle]Onset: 01-06-2023 EpisodicCardiac dysrhythmias (6 sources)Ventricular premature beats; Translations: [Other premature beats] Resolved: 57-47-3197UfmidjaEcbfkuy kidney disease (20 sources)Chronic kidney disease; Translations: [Chronic kidney disease, stage III (moderate)]Onset: 02-20-2022 Resolved: 39-25-3997Pzfbe acquired deformities (20 sources)Lumbar spondylolisthesis; Translations: [Spondylolisthesis, lumbar region]Onset: 359623-12-4417GefyojvpElquh aftercare (20 sources)Long-term current use of insulin; Translations: [USP (current) use of insulin]Onset: 227748-74-4625UnfhpatiIoqjd aftercare (1 source)Other group home (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 therapy; Translations: [OT CARE HOME CURRENT DRUG THERAPY]Onset: 16-29-7896QrvachakVprkd aftercare (1 source)manager terminal (current) use of insulin; Translations: [CARE HOME CURRENT USE OF INSULIN]Onset: 05-50-5182IrycmojmOkhjn aftercare (1 source)USP (current) use of aspirin; Translations: [CARD SETTER CURRENT USE OF ASPIRIN]Onset: 63-17-7834IjsqwhgkVbmft aftercare (1 source)manager terminal (current) use of anticoagulants; Translations: [CARD SETTER CURRNT USE ANTICOAGULANTS]Onset: 34-82-4649UzstftveBcxek bone disease and musculoskeletal deformities (1 source)Other specified disorders of bone density and structure, left ankle and foot; Translations: [OT D/O BONE DEN STRUCT LT ANK FOOT]Onset: 01-06-2023 EpisodicOther connective tissue disease (4 sources)Pain in left foot; Translations: [PAIN IN LEFT FOOT]Onset: 11-16-2022 EpisodicOther connective tissue disease (1 source)Pain in right foot; Translations: [PAIN IN RIGHT FOOT]Onset: 23-77-1728IhljdtfqPobfc connective tissue disease (20 sources)Unspecified rotator cuff tear or rupture of right shoulder, not specified as traumatic; Translations: [Disorders of bursae and tendons in shoulder region, unspecified]Onset: 050418-30-4712NybwhhqbYkqte lower respiratory disease (6 sources)Dyspnea on exertion; Translations: [Other respiratory abnormalities] Resolved: 40-28-7469NrrkwynyQitca lower respiratory disease (2 sources)Shortness of breathOnset: 02-07-2022 Resolved: 60-99-4488RwqduzarVtprz non-traumatic joint disorders (4 sources)Pain in right ankle and joints of right foot; Translations: [PAIN IN RIGHT ANKLE]Onset: 69-64-1041TeaqyysqJwwxd non-traumatic joint disorders (1 source)Pain in left ankle and joints of left foot; Translations: [PAIN IN LEFT ANKLE]Onset: 48-14-9149ZgwizpfgQzgktjay codes; unclassified (6 sources)History of palpitations; Translations: [Personal history of other diseases of circulatory system] Resolved: 19-82-2004ZojagbumZygqsyaq codes; unclassified (1 source)Acquired absence of other specified parts of digestive tract; Translations: [ACQ ABSENCE OTH PART DIGESTV TRACT]Onset: 52-87-3845Pqanpurs Substance-related disorders (1 source)Opioid use, unspecified, uncomplicatedOnset: 10-01-2021 Resolved: 59-02-4571BzoervgpAcntlycrkbhp (6 sources)Never smoked tobacco; Translations: [Never a smoker]Unclassified (1 source)Cough R05.9Onset: 12-03-2021 Resolved: 12-77-5119Ilpimpgrxlus (1 source)Low back pain, unspecified M54.50Unclassified (2 sources)Onset: 694637-39-6940 Results Test NameValueInterpretationReference RangeFacilityBasophils Auto (Bld) [#/Vol] Ordered By: Karla Lyons on 38-99-4452Azsfxbywk (Bld) [#/Vol]0.0 10 3/uL0.0-0.1 [facility] HospitalBasophils/100 WBC Auto (Bld)Ordered By: Karla Lyons on 52-20-5412Xcqrdbivm/100 WBC (Bld)0.1 %Low0.2-2.0[facility] HospitalEosinophils/100 WBC Auto (Bld)Ordered By: Karla Lyons on 30-43-2883Uggzbeokqig/100 WBC (Bld)0.0 %Low0.9-7.0[facility] HospitalErythrocyte distribution width Auto (RBC) [Ratio]Ordered By: Karla Lyons on 82-38-0029Nlvzbtrvghy distribution width (RBC) [Ratio]12.2 %11.0-15.0 [facility] HospitalGlobulin Calc (S) [Mass/Vol]Ordered By: Karla Lyons on 98-06-5677Novsdlww (S) [Mass/Vol]4.1 g/dLGeorgetown Behavioral HospitalGlomerular filtration rate (GFR) estimation in non- AmericanOrdered By: Karla Lyons on 11-10-0558GLZ/1.73 sq M.predicted among non-blacks MDRD (S/P/Bld) [Vol rate/Area]34 mL/min/{1.73_m2}Low>=60 mL/min/1.73m 2FFairfield Medical CenterHematocrit Auto (Bld) [Volume fraction]Ordered By: Karla Lyons on 15-99-5337Cgojacuzqd (Bld) [Volume fraction]30.3 %Low36.0-48.0 [facility] HospitalHemoglobin [Mass/volume] in BloodOrdered By: Karla Lyons on 77-62-9918Gmavunbtsn (Bld) [Mass/Vol]10.1 g/dLLow12.0-16.0 [facility] HospitalLaboratory - Chemistry and Chemistry - challengeOrdered By: Karla Lyons on 91-30-8450Uluvmpi [Mass/Vol]1.9 g/dLLow 3.4-5.0[facility] HospitalALP [Catalytic activity/Vol]99 U/L46-116 [facility] HospitalALT [Catalytic activity/Vol]23 U/L14-59 [facility] HospitalAST [Catalytic activity/Vol]14 U/RSgr51-35 [facility] HospitalBilirubin [Mass/Vol]0.3 mg/dL0.2-1.0[facility] HospitalCalcium [Mass/Vol]8.6 mg/dL8.5-10.1FFairfield Medical CenterChloride [Moles/Vol]106 mmol/Z59-088JdoiubzxeGeorgetown Behavioral HospitalCO2 [Moles/Vol]23.0 mmol/L21.0-32.0[facility] Creatinine [Mass/Vol]1.54 mg/dLHigh0.55-1.02[facility] GFR/1.73 sq M.predicted MDRD (S/P/Bld) [Vol rate/Area]41 mL/min/{1.73_m2}Low>=60 mL/min/1.73m 2FFairfield Medical CenterGlucose [Mass/Vol]253 mg/dLHigh 74-106[facility] HospitalMagnesium [Mass/Vol]1.7 mg/dLLow1.8-2.4 [facility] HospitalPotassium [Moles/Vol]5.0 mmol/L3.5-5.1FFairfield Medical CenterProtein [Mass/Vol]6.0 g/dLLow6.4-8.2FCleveland Clinicodium [Moles/Vol]138 mmol/Z075-918QgnarbemnGeorgetown Behavioral HospitalUrea nitrogen [Mass/Vol]56.0 mg/dLHigh7.0-18.0[facility] HospitalUrea nitrogen/Creatinine [Mass ratio]36.4 mg/mgGeorgetown Behavioral HospitalLaboratory - Hematology and Cell countsOrdered By: Karla Lyons on 08-05-7784SNA (Bld) [Velocity]106 mm/hHigh<=30[facility] Immature granulocytes/100 WBC (Bld)0.8 %High0.0-0.5FFairfield Medical CenterLeukocytes [#/volume] corrected for nucleated erythrocytes in Blood by Automated counOrdered By: Karla Lyons on 47-41-3261UXX corrected for nucl RBC Auto (Bld) [#/Vol]11.8 10 3/uLHigh4.0-11.0[facility] Lymphocytes Auto (Bld) [#/Vol]Ordered By: Karla Lyons on 35-04-5177Yifkmzmyhkl (Bld) [#/Vol]0.8 10 3/uLLow1.2-3.8[facility] Lymphocytes/100 WBC Auto (Bld)Ordered By: Karla Lyons on 06-30-2025 Lymphocytes/100 WBC (Bld)7.0 %Low20.5-60.0[facility] HospitalMCH Auto (RBC) [Entitic mass]Ordered By: Karla Lyons on 50-16-9299KQS (RBC) [Entitic mass]29.3 pg26.7-34.0[facility] HospitalMCHC Auto (RBC) [Mass/Vol]Ordered By: Karla Lyons on 94-87-5842UBBW (RBC) [Mass/Vol]33.3 g/dL 29.9-35.2FFairfield Medical CenterMCV Auto (RBC) [Entitic vol]Ordered By: Karla Lyons on 84-53-6943TEC (RBC) [Entitic vol]87.8 fL81.0-99.0[facility] HospitalMonocytes Auto (Bld) [#/Vol]Ordered By: Karla Lyons on 22-63-1284Udpyislww (Bld) [#/Vol]0.5 10 3/uL0.3-0.8[facility] HospitalMonocytes/100 WBC Auto (Bld)Ordered By: Karla Lyons on 06-30-2025 Monocytes/100 WBC (Bld)3.9 %1.7-12.0[facility] HospitalNeutrophils Auto (Bld) [#/Vol]Ordered By: Karla Lyons on 03-92-6497Nmjsxiwogdh (Bld) [#/Vol]10.4 10 3/uLHigh1.4-6.5FFairfield Medical CenterNeutrophils/100 WBC Auto (Bld)Ordered By: Karla Lyons on 17-66-6252Mxfvgnuhggq/100 WBC (Bld) 88.2 %High43.0-75.0[facility] HospitalNo Panel InformationOrdered By: Gustavo Cuevas on 48-36-1405Nfdzguaf Identification OnlyGeorgetown Behavioral HospitalNo Panel InformationOrdered By: Karla Lyons on 39-80-0381K- Reactive Protein, Klxzmxobroic90.95 mg/dLHigh<=0.50[facility] HospitalEosinophils # (Auto)0.0 10 3/uL0.0-0.7FFairfield Medical Center Immature Granulocyte # (Auto)0.09 10 3/uLHigh0.00-0.03[facility] HospitalPlatelet mean volume Auto (Bld) [Entitic vol]Ordered By: Karla Lyons on 77-47-8106Imtzoesi mean volume (Bld) [Entitic vol]11.5 fL9.5-13.5FFairfield Medical CenterPlatelets Auto (Bld) [#/Vol]Ordered By: Karla Lyons on 86-96-6157Hjymbncfq (Bld) [#/Vol]184 10 3/xI947-829ZdmoaeekyGeorgetown Behavioral HospitalRBC Auto (Bld) [#/Vol]Ordered By: Karla Lyons on 17-35-8573GFE (Bld) [#/Vol]3.45 10 6/uLLow4.20-5.40[facility] Akronerum or plasma albumin/globulin mass ratioOrdered By: Karla Lyons on 06-30-2025 Albumin/Globulin [Mass ratio]0.5 {ratio}[facility] Akronerum or plasma anion gap determinationOrdered By: Karla Lyons on 33-18-6705Geyyo gap [Moles/Vol]14.0 mmol/LFFairfield Medical CenterBasophils Auto (Bld) [#/Vol]Ordered By: Karla Lyons on 61-82-0632Tsoawnctf (Bld) [#/Vol]0.0 10 3/uL 0.0-0.1FFairfield Medical CenterBasophils/100 WBC Auto (Bld)Ordered By: Karla Lyons on 92-57-1009Ohycuczdc/100 WBC (Bld)0.1 %Low0.2-2.0[facility] HospitalEosinophils/100 WBC Auto (Bld)Ordered By: Karla Lyons on 52-35-4620Kntrjavkqbb/100 WBC (Bld)0.1 %Low0.9-7.0[facility] HospitalErythrocyte distribution width Auto (RBC) [Ratio]Ordered By: Karla Lyons on 93-34-9030Nywsgzeovpv distribution width (RBC) [Ratio]12.3 %11.0-15.0 [facility] HospitalGlobulin Calc (S) [Mass/Vol]Ordered By: Karla Lyons on 99-91-0141Kdwgovng (S) [Mass/Vol]4.3 g/dLGeorgetown Behavioral HospitalGlomerular filtration rate (GFR) estimation in non- AmericanOrdered By: Karla Lyons on 42-18-7216UBW/1.73 sq M.predicted among non-blacks MDRD (S/P/Bld) [Vol rate/Area]31 mL/min/{1.73_m2}Low>=60 mL/min/1.73m 2FFairfield Medical CenterHematocrit Auto (Bld) [Volume fraction]Ordered By: Karla Lyons on 75-31-5474Vuiyjsslmr (Bld) [Volume fraction]31.1 %Low36.0-48.0 [facility] HospitalHemoglobin [Mass/volume] in BloodOrdered By: Karla Lyons on 16-04-8581Jpnufxmkzw (Bld) [Mass/Vol]10.6 g/dLLow12.0-16.0 [facility] HospitalLaboratory - Chemistry and Chemistry - challengeOrdered By: Karla Lyons on 05-06-8580Bolilnu [Mass/Vol]2.1 g/dLLow 3.4-5.0[facility] HospitalALP [Catalytic activity/Vol]88 U/L46-116 [facility] HospitalALT [Catalytic activity/Vol]17 U/L14-59 [facility] HospitalAST [Catalytic activity/Vol]14 U/YPar63-69 [facility] HospitalBilirubin [Mass/Vol]0.5 mg/dL0.2-1.0[facility] HospitalCalcium [Mass/Vol]8.9 mg/dL8.5-10.1FFairfield Medical CenterChloride [Moles/Vol]104 mmol/M78-591PadsmnfwfGeorgetown Behavioral HospitalCO2 [Moles/Vol]21.2 mmol/L21.0-32.0[facility] Creatinine [Mass/Vol]1.68 mg/dLHigh0.55-1.02[facility] GFR/1.73 sq M.predicted MDRD (S/P/Bld) [Vol rate/Area]37 mL/min/{1.73_m2}Low>=60 mL/min/1.73m 2FFairfield Medical CenterGlucose [Mass/Vol]201 mg/dLHigh 74-106[facility] HospitalPotassium [Moles/Vol]5.1 mmol/L3.5-5.1 [facility] HospitalProtein [Mass/Vol]6.4 g/dL6.4-8.2FCleveland Clinicodium [Moles/Vol]137 mmol/A607-132VtdetmmwoGeorgetown Behavioral HospitalUrea nitrogen [Mass/Vol]62.0 mg/dLHigh7.0-18.0[facility] HospitalUrea nitrogen/Creatinine [Mass ratio]36.9 mg/mgGeorgetown Behavioral HospitalLaboratory - Chemistry and Chemistry - challengeOrdered By: Elpidio Whipple on 92-38-7478Cgxqnoqpe [Mass/Vol]1.9 mg/dL1.8-2.4FFairfield Medical CenterLaboratory - Hematology and Cell countsOrdered By: Karla Lyons on 29-09-9083Xdsloqin granulocytes/100 WBC (Bld)0.3 %0.0-0.5FFairfield Medical CenterLeukocytes [#/volume] corrected for nucleated erythrocytes in Blood by Automated counOrdered By: Karla Lyons on 67-24-8689RNG corrected for nucl RBC Auto (Bld) [#/Vol]14.5 10 3/uLHigh4.0-11.0[facility] HospitalLymphocytes Auto (Bld) [#/Vol]Ordered By: Karla Lyons on 06-29-2025 Lymphocytes (Bld) [#/Vol]0.7 10 3/uLLow1.2-3.8[facility] Lymphocytes/100 WBC Auto (Bld)Ordered By: Karla Lyons on 06-29-2025 Lymphocytes/100 WBC (Bld)4.9 %Low20.5-60.0[facility] Auto (RBC) [Entitic mass]Ordered By: Karla Lyons on 94-18-4373ASY (RBC) [Entitic mass]30.1 pg26.7-34.0[facility] HospitalMCHC Auto (RBC) [Mass/Vol]Ordered By: Karla Lyons on 90-60-6304GPEA (RBC) [Mass/Vol]34.1 g/dL 29.9-35.2FFairfield Medical CenterMCV Auto (RBC) [Entitic vol]Ordered By: Karla Lyons on 82-38-6679ULH (RBC) [Entitic vol]88.4 fL81.0-99.0[facility] HospitalMonocytes Auto (Bld) [#/Vol]Ordered By: Karla Lyons on 34-83-7977Kvpmocvnb (Bld) [#/Vol]0.7 10 3/uL0.3-0.8[facility] HospitalMonocytes/100 WBC Auto (Bld)Ordered By: Karla Lyons on 06-29-2025 Monocytes/100 WBC (Bld)4.8 %1.7-12.0[facility] HospitalNeutrophils Auto (Bld) [#/Vol]Ordered By: Karla Lyons on 68-36-4271Ropbcsodppo (Bld) [#/Vol]13.0 10 3/uLHigh1.4-6.5FFairfield Medical CenterNeutrophils/100 WBC Auto (Bld)Ordered By: Karla Lyons on 46-87-0427Zwkgijqnjpm/100 WBC (Bld) 89.8 %High43.0-75.0[facility] HospitalNo Panel InformationOrdered By: Karla Lyons on 33-59-4962Esfgauavmgs # (Auto)0.0 10 3/uL0.0-0.7FFairfield Medical CenterImmature Granulocyte # (Auto)0.05 10 3/uLHigh0.00-0.03 [facility] HospitalPlatelet mean volume Auto (Bld) [Entitic vol] Ordered By: Karla Lyons on 54-47-8383Sbkzknwt mean volume (Bld) [Entitic vol] 11.4 fL9.5-13.5FFairfield Medical CenterPlatelets Auto (Bld) [#/Vol] Ordered By: Karla Lyons on 74-47-6025Gvciwopyv (Bld) [#/Vol]178 10 3/uZ654-873 [facility] HospitalRBC Auto (Bld) [#/Vol]Ordered By: Karla Lyons on 37-46-7954YMC (Bld) [#/Vol]3.52 10 6/uLLow4.20-5.40[facility] - Akronerum or plasma albumin/globulin mass ratioOrdered By: Karla Lyons on 41-04-2218Amzrndu/Globulin [Mass ratio]0.5 {ratio}[facility] - Akronerum or plasma anion gap determinationOrdered By: Karla Lyons on 87-86-5150Gixyv gap [Moles/Vol]16.9 mmol/LFFairfield Medical Center Basophils Auto (Bld) [#/Vol]Ordered By: Charan Casey on 69-65-6198Bjguqqfxe (Bld) [#/Vol]0.0 10 3/uL0.0-0.1FFairfield Medical CenterBasophils/100 WBC Auto (Bld)Ordered By: Charan Casey on 62-75-1699Nudichebd/100 WBC (Bld)0.1 %Low0.2-2.0 [facility] HospitalEosinophils/100 WBC Auto (Bld)Ordered By: Charan Casey on 74-88-1246Djxwpesirkd/100 WBC (Bld)0.1 %Low0.9-7.0[facility] HospitalErythrocyte distribution width Auto (RBC) [Ratio]Ordered By: Charan Casey on 87-39-3195Gxsokimvtxp distribution width (RBC) [Ratio]12.1 %11.0-15.0 [facility] HospitalGlobulin Calc (S) [Mass/Vol]Ordered By: Gustavo Cuevas on 40-37-0171Ytsgetlj (S) [Mass/Vol]4.6 g/dLGeorgetown Behavioral HospitalGlomerular filtration rate (GFR) estimation in non- AmericanOrdered By: Gustavo Cuevas on 46-81-8419VOT/1.73 sq M.predicted among non-blacks MDRD (S/P/Bld) [Vol rate/Area]19 mL/min/{1.73_m2}Low>=60 mL/min/1.73m 2FFairfield Medical CenterHematocrit Auto (Bld) [Volume fraction]Ordered By: Charan Casey on 76-89-6310Bqcyueguii (Bld) [Volume fraction]33.7 %Low36.0-48.0[facility] HospitalHemoglobin [Mass/volume] in BloodOrdered By: Charan Casey on 08-32-2997Ksyjaoqnwp (Bld) [Mass/Vol]11.7 g/dLLow12.0-16.0[facility] HospitalINR in Platelet poor plasma by Coagulation assayOrdered By: Gustavo Cuevas on 68-22-9927BKH Coag (PPP) [Relative time]1.02 {INR}[facility] HospitalComment on above:DESIRED INR:2.0-3.0 CONDITIONS NOT LISTED BELOW2.5-3.5 FOR PROSTHETIC HEART VALVE REPLACEMENT2.5-3.5 RECURRENT THROMBOSISLaboratory - Chemistry and Chemistry - challengeOrdered By: Gustavo Cuevas on 55-25-6926Dvhwujp [Mass/Vol]2.7 g/dLLow3.4-5.0[facility] HospitalALP [Catalytic activity/Vol]90 U/S97-254RfsyczgsqGeorgetown Behavioral Hospital ALT [Catalytic activity/Vol]23 U/S10-64QlpytanqxGeorgetown Behavioral HospitalAST [Catalytic activity/Vol]25 U/C72-88RcammocedGeorgetown Behavioral HospitalBilirubin [Mass/Vol]0.6 mg/dL0.2-1.0[facility] HospitalCalcium [Mass/Vol]9.3 mg/dL8.5-10.1FFairfield Medical CenterChloride [Moles/Vol]99 mmol/L 98-107[facility] HospitalCO2 [Moles/Vol]22.3 mmol/L21.0-32.0 [facility] HospitalCreatinine [Mass/Vol]2.58 mg/dLHigh0.55-1.02 [facility] HospitalGFR/1.73 sq M.predicted MDRD (S/P/Bld) [Vol rate/Area]23 mL/min/{1.73_m2}Low>=60 mL/min/1.73m 2FFairfield Medical CenterGlucose [Mass/Vol]81 mg/gK65-205YrdutybmrGeorgetown Behavioral HospitalLactate [Moles/Vol]1.3 mmol/L0.4-2.0[facility] HospitalPotassium [Moles/Vol]4.9 mmol/L3.5-5.1FFairfield Medical CenterProtein [Mass/Vol] 7.3 g/dL6.4-8.2FCleveland Clinicodium [Moles/Vol]136 mmol/L 136-145[facility] HospitalUrea nitrogen [Mass/Vol]72.0 mg/dLHigh 7.0-18.0[facility] HospitalUrea nitrogen/Creatinine [Mass ratio] 27.9 mg/mgGeorgetown Behavioral HospitalLaboratory - Hematology and Cell countsOrdered By: Charan Casey on 42-60-5044YSG (Bld) [Velocity]104 mm/hHigh<=30 [facility] HospitalImmature granulocytes/100 WBC (Bld)0.5 %0.0-0.5 [facility] HospitalLeukocytes [#/volume] corrected for nucleated erythrocytes in Blood by Automated counOrdered By: Charan Casey on 13-47-2217ROQ corrected for nucl RBC Auto (Bld) [#/Vol]17.3 10 3/uLHigh4.0-11.0[facility] HospitalLymphocytes Auto (Bld) [#/Vol]Ordered By: Charan Casey on 16-15-3511Eyhemsoyqza (Bld) [#/Vol]0.7 10 3/uLLow1.2-3.8[facility] HospitalLymphocytes/100 WBC Auto (Bld)Ordered By: Charan Casey on 06-28-2025 Lymphocytes/100 WBC (Bld)4.0 %Low20.5-60.0[facility]H [facility] (RBC) [Entitic mass]Ordered By: Charan Casey on 33-60-1401SDR (RBC) [Entitic mass]30.4 pg26.7-34.0[facility] HospitalMCHC Auto (RBC) [Mass/Vol] Ordered By: Charan Casey on 02-77-2315AEZX (RBC) [Mass/Vol]34.7 g/dL29.9-35.2 [facility] HospitalMCV Auto (RBC) [Entitic vol]Ordered By: Charan Casey on 04-26-8004SHN (RBC) [Entitic vol]87.5 fL81.0-99.0[facility] HospitalMonocytes Auto (Bld) [#/Vol]Ordered By: Charan Casey on 06-28-2025 Monocytes (Bld) [#/Vol]0.7 10 3/uL0.3-0.8[facility] Monocytes/100 WBC Auto (Bld)Ordered By: Charan Casey on 38-34-6005Bogzjocpf/100 WBC (Bld)4.0 %1.7-12.0[facility] HospitalNeutrophils Auto (Bld) [#/Vol]Ordered By: Charan Casey on 95-49-2238Rdedfyvoovz (Bld) [#/Vol]15.8 10 3/uL High1.4-6.5FFairfield Medical CenterNeutrophils/100 WBC Auto (Bld) Ordered By: Charan Casey on 56-37-5113Hoxnaccwazw/100 WBC (Bld)91.3 %High43.0-75.0 [facility] HospitalNo Panel InformationOrdered By: Charan Casey on 80-67-6080M-Reactive Protein, Ckokkuzwfann19.00 mg/dLHigh<=0.50[facility] HospitalEosinophils # (Auto)0.0 10 3/uL0.0-0.7FFairfield Medical CenterImmature Granulocyte # (Auto)0.09 10 3/uLHigh0.00-0.03[facility] HospitalNo Panel InformationOrdered By: Gustavo Cuevas on 06-28-2025 Venous Blood Partial Pressure CO241.7 mm[Hg]40.0-52.0[facility] HospitalVenous Blood pH7.3547.330-7.430[facility] HospitalPlatelet mean volume Auto (Bld) [Entitic vol]Ordered By: Charan Casey on 79-70-8157Xcqddwol mean volume (Bld) [Entitic vol]11.8 fL9.5-13.5FFairfield Medical Center Platelets Auto (Bld) [#/Vol]Ordered By: Charan Casey on 69-23-5921Dqfsgqsbe (Bld) [#/Vol]178 10 3/gF903-969OkpufwbjxGeorgetown Behavioral HospitalProthrombin time (PT) Ordered By: Gustavo Cuevas on 58-91-0664HU Coag (PPP) [Time]10.8 s9.0-11.6FFairfield Medical CenterRBC Auto (Bld) [#/Vol]Ordered By: Charan Casey on 30-16-4125IHF (Bld) [#/Vol]3.85 10 6/uLLow4.20-5.40[facility] Akronerum or plasma albumin/globulin mass ratioOrdered By: Gustavo Cuevas on 69-45-4987Ffrnylo/Globulin [Mass ratio]0.6 {ratio}[facility] Akronerum or plasma anion gap determinationOrdered By: Gustavo Cuevas on 59-94-8659Mkfxs gap [Moles/Vol]19.6 mmol/LFFairfield Medical CenterX-ray reportOrdered By: Néstor Mays on 90-24-1016Ivqaf reportOHIOHEALTH [place] [address] XRay Report Signed Patient: Rita Cobb MR#: [id number] : 1960 Acct:[id number] Age/Sex: 64 / F ADM Date: 5 [place]: [place] Room: Type: [facility] Attending Dr: Acosta Castro DPM MS [...] Mays M.D. 06/05/2025 5:41 PM Dictation Location: [place] [address] Transcribed By: [facility] 06/05/251740 Dictated By: Néstor Mays MD 06/05/251734 Signed By: 06/05/251740 [facility] Work Phone: XR foot BI 3Von 97-86-4458CY foot BI 3VOHIOHEALTH DOCTORS HOSPITAL [place] [address] [place] [address] XRay Report Signed Patient: Rita Cobb MR#: [id number] : 1960 Acct:[id number] Age/Sex: 64 / F ADM Date: 06/05/25 Loc: X[place] Room: Type: [facility] Attending Dr: Acosta Castro DPM MS [...] Mays M.D. 06/05/2025 5:41 PM Dictation Location: [place] [address] Transcribed By: [facility] 06/05/25 1741 Dictated By: Néstor Mays MD 06/05/251734 Signed By: 06/05/25 174[facility] Physician RjwwhRhT5j (Bld) [Mass fraction]on 23-58-9765Ajfvwafouieiaj and review of laboratory resultsAbNovant HealthLaboratory - Hematology and Cell countson 23-44-9494OjS2x (Bld) [Mass fraction]8.1 %[facility] HealthcareMR shoulder RT wo conon 21-18-7971HR shoulder RT wo [facility] [place] [address] [place] [address] MRI Report Signed Patient: Rita Cobb MR#: [id number] : 1960 Acct:[id number] Age/Sex: 64 / F ADM Date: 01/23/25 Loc: [facility] Room: Type: [facility] Attending Dr: Nader Curry DO Copies [...] Timothy Levi M.D.01/26/2025 9:38 AM Dictation Location: [place] [address] Transcribed By: [facility] 01/26/25 0938 Dictated By: Timothy Levi II, MD 01/26/25 0902 Signed By: 01/26/25 0938[facility] Physician GroupInfluenza virus B Ag [Presence] in Upper respiratory specimen by Rapid immunoassayon 08-86-0264GIGWX Ag IA.rapid Ql (Nph)Influenza virus B Ag [Presence] in Upper respiratory specimen by Rapid immunoassayGeorgetown Behavioral HospitalNo Panel Informationon 12-09-2024 Influenza Type A (Rapid)NegativeGeorgetown Behavioral HospitalPO SARS CoV-2 AntigenNegativeGeorgetown Behavioral HospitalNo Panel InformationOrdered By: Charan Casey on 15-92-3412XNU (POC)[facility] HospitalRSV (POC) [facility] HospitalX-ray reportOrdered By: Néstor Mays on 77-02-5523Qdhaj reportOHIOHEALTH DOCTORS HOSPITAL Main [address] [address] XRay Report Signed Patient: Rita Cobb MR#: [id number] : 1960 Acct:[id number] Age/Sex: 64 / F ADM Date: 5 [...] Néstor Mays M.D.12/08/2024 3:59 PM Dictation Location: [place] [address] Transcribed By: FRANKY 12/08/24 1559 Dictated By: Néstor Mays MD 12/08/24 1524 Signed By: 12/08/24 1559 [facility] Work Phone: XR chest 2V*on 15-54-7849WW chest 2V*[facility] [place] [address] [address] XRay Report Signed Patient: Rita Cobb MR#: [id number] : 1960 Acct:[id number] Age/Sex: 64 / F ADM Date: 12/08/24 Loc: [place] Room: Type: [facility] Attending Dr: Charan [...] Néstor Mays M.D.12/08/2024 3:59 PM Dictation Location: [place] [address] Transcribed By: [facility] 12/08/24 1559 Dictated By: Néstor Mays MD 12/08/24 1524 Signed By: 12/08/24 1559[facility] Physician GroupXR shoulder RT min 2V*on 16-20-7196LR shoulder RT min 2V*[facility] [address] [place] [address] XRay Report Signed Patient: Rita Cobb MR#: [id number] : 1960 Acct:[id number] Age/Sex: 63 / F ADM Date: 10/25/24 Loc: [facility] Room: Type: [facility] Attending Dr: Nader Curry DO Copies [...] Ibis Crisostomo M.D.10/25/2024 9:11 AM Dictation Location: [place] [address] Transcribed By: [facility] 10/25/24 09 Dictated By: Ibis Crisostomo MD 10/25/24 0908 Signed By: 10/25/24 0911[facility] Physician WjbweHvQ6w (Bld) [Mass fraction]on 44-62-9254Buwekmjhjrvmni and review of laboratory resultsNoSpooner HealthLaboratory - Hematology and Cell countson 20-89-2336AoV3l (Bld) [Mass fraction]7.6 %[facility] HealthcareMM screening mammo BI w/CADon 16-02-3414AD screening mammo BI w/CADOHIOHEALTH DOCTORS HOSPITAL [place] [address] [place] [address] Mammography Report Signed Patient: Rita Cobb MR#: [id number] : 1960 Acct:[id number] Age/Sex: 63 / F ADM Date: 09/07/24 Loc: [place] Room: Type: [facility] Attending Dr: Referral Self Copies to: [...] Brown Jr. DDerekODerek09/07/2024 9:04 AM Dictation Location: [facility] Transcribed By: FRANKY 09/07/24903 Dictated By: Sudhir Brown Jr, DO 09/07/24899 Signed By: 09/07/24903[facility] Physician GroupAlbumin [Mass/volume] in Serum or Plasma by Bromocresol green (BCG) dye binding methoOrdered By: Elpidio Whipple on 92-66-5785Lsjxefa BCG dye [Mass/Vol]4.3 g/dL3.5-5.7FFairfield Medical CenterAutomated erythrocytes count in urine sediment (number/area)Ordered By: Elpidio Whipple on 06-29-2695PBW Auto (Urine sed) [#/Area]1-2 [HPF]0-4FFairfield Medical CenterAutomated leukocytes count in urine sediment (number/area)Ordered By: Elpidio Whipple on 34-59-7132FLL Auto (Urine sed) [#/Area] 5-9 [HPF]0-4FFairfield Medical CenterBilirubin Test strip Ql (U)Ordered By: Elpidio Whipple on 94-40-8398Lxyixukgn Ql (U)NegativeNegativeGeorgetown Behavioral HospitalCalcium [Mass/volume] in Serum or PlasmaOrdered By: Elpidio Whipple on 02-55-0668Hnosnzl [Mass/Vol]9.8 mg/dL8.6-10.3FFairfield Medical Center Carbon dioxide, total [Moles/volume] in Serum or PlasmaOrdered By: Elpidio Whipple on 60-96-7142ZV8 [Moles/Vol]30.4 mmol/L21.0-31.0[facility] HospitalChloride [Moles/volume] in Serum or PlasmaOrdered By: Elpidio Whipple on 71-52-1104Nesbsdql [Moles/Vol]103 mmol/R67-302ZqgqxrehxGeorgetown Behavioral Hospital Color Auto (U)Ordered By: Elpidio Whipple on 95-98-8844Ndcgz (U)Dark yellowYellow [facility] HospitalCreatinine [Mass/volume] in Serum or Plasma Ordered By: Elpidio Whipple on 43-53-8535Yudigepjhy [Mass/Vol]1.19 mg/dL0.60-1.20 [facility] HospitalCreatinine [Mass/volume] in UrineOrdered By: Elpidio Whipple on 98-23-0345Czpgdlnttf (U) [Mass/Vol]101.0 mg/dLGeorgetown Behavioral HospitalComment on above:No reference range establishedErythrocyte distribution width Auto (RBC) [Ratio]Ordered By: Elpidio Whipple on 02-29-2024 Erythrocyte distribution width (RBC) [Ratio]12.9 %11.9-15.3FFairfield Medical CenterGlucose [Mass/volume] in Serum or PlasmaOrdered By: Elpidio Whipple on 11-12-4435Qlongwu [Mass/Vol]164 mg/tT42-265KvnjxzrxmGeorgetown Behavioral Hospital Comment on above:ADA recommended reference rangeRandom Glucose Reference Range is dependent on time and content of last meal. Glucose of more than 200 mg/dL in a nonstressed, ambulatory subject supports the diagnosisof Diabetes Mellitus. Hematocrit Auto (Bld) [Volume fraction]Ordered By: Elpidio Whipple on 02-29-2024 Hematocrit (Bld) [Volume fraction]39.7 %34.0-46.4FFairfield Medical CenterHemoglobin [Mass/volume] in BloodOrdered By: Elpidio Whipple on 02-29-2024 Hemoglobin (Bld) [Mass/Vol]13.4 g/dL11.8-15.4FFairfield Medical Center Ketones Auto test strip (U) [Mass/Vol]Ordered By: Elpidio Whipple on 02-29-2024 Ketones (U) [Mass/Vol]NegativeNegativeGeorgetown Behavioral Hospital Laboratory - UrinalysisOrdered By: Elpidio Whipple on 57-23-4687Zbhjksb casts LM Ql (Urine sed)0-8 [LPF]0-8[facility] HospitalLeukocytes [#/volume] corrected for nucleated erythrocytes in Blood by Automated counOrdered By: Elpidio Whipple on 90-56-8821JIG corrected for nucl RBC Auto (Bld) [#/Vol]4.5 10*3/uL 3.8-11.6FFairfield Medical CenterMCH Auto (RBC) [Entitic mass]Ordered By: Elpidio Whipple on 98-35-9194YMO (RBC) [Entitic mass]29.1 pg24.7-34.3FFairfield Medical CenterMCHC Auto (RBC) [Mass/Vol]Ordered By: Elpidio Whipple on 01-59-0255DKMO (RBC) [Mass/Vol]33.8 g/dL32.0-35.0[facility] HospitalMCV Auto (RBC) [Entitic vol]Ordered By: Elpidio Whipple on 03-27-8325FZS (RBC) [Entitic vol]86.2 eL64-507NaeoawrfbGeorgetown Behavioral HospitalMagnesium [Mass/volume] in Serum or PlasmaOrdered By: Elpidio Whipple on 65-16-2061Jbfckzmny [Mass/Vol]1.6 mg/dL1.9-2.7FFairfield Medical CenterNitrite Test strip Ql (U)Ordered By: Elpidio Whipple on 42-94-8537Blkwqck Ql (U)NegativeNegativeGeorgetown Behavioral HospitalNo Panel InformationOrdered By: Elpidio Whipple on 69-21-2697Xntrvxklr GFR (CKD-EPI)51.377 mL/MinGeorgetown Behavioral Hospital Pharmacy Creatinine Clearance (ChemN/[facility] Parathyrin.intact [Mass/volume] in Serum or PlasmaOrdered By: Elpidio Whipple on 41-20-4037Vebqavzusj.intact [Mass/Vol]53.1 pg/aO32-73GzhpksvcyGeorgetown Behavioral HospitalPhosphate [Mass/volume] in Serum or PlasmaOrdered By: Elpidio Whipple on 07-13-4350Zjknqqloc [Mass/Vol]2.8 mg/dL2.5-4.5FFairfield Medical Center Platelet mean volume Auto (Bld) [Entitic vol]Ordered By: Elpidio Whipple on 19-64-6911Aacnqwin mean volume (Bld) [Entitic vol]9.5 fL6.3-10.7FFairfield Medical CenterPlatelets Auto (Bld) [#/Vol]Ordered By: Elpidio Whipple on 41-21-2208Etfnfntab (Bld) [#/Vol]174 10*3/xH435-497KwgqusnhxGeorgetown Behavioral HospitalPotassium [Moles/volume] in Serum or PlasmaOrdered By: Elpidio Whipple on 30-23-7565Nqkmcveji [Moles/Vol]4.6 mmol/L3.5-5.1FFairfield Medical CenterProtein Auto test strip (U) [Mass/Vol]Ordered By: Elpidio Whipple on 50-71-3936Jmulgcj (U) [Mass/Vol]30 mg/dLNegativeGeorgetown Behavioral HospitalProtein [Mass/volume] in UrineOrdered By: Elpidio Whipple on 21-52-7517Rbiizdh (U) [Mass/Vol]43 mg/dL0-9[facility] HospitalRBC Auto (Bld) [#/Vol]Ordered By: Elpidio Whipple on 06-53-8490FCM (Bld) [#/Vol]4.61 10*6/uL 3.60-5.00[facility] Akronerum or plasma anion gap determinationOrdered By: Elpidio Whipple on 07-75-6711Cywcv gap [Moles/Vol]11.2 mmol/L6.0-15.0[facility] - Akronodium [Moles/volume] in Serum or PlasmaOrdered By: Elpidio Whipple on 83-60-8335Qdhlhg [Moles/Vol]140 mmol/X107-292 [facility] - Akronpecific gravity Auto test strip (U) [Rel density]Ordered By: Elpidio Whipple on 37-40-5979Ogzztqkz gravity (U) [Rel density] 1.0191.001-1.030[facility] Hospital - Akronquamous epithelial cells detection in urine sediment by light microscopyOrdered By: Elpidio Whipple on 62-10-2064Sobpopemxy cells.squamous LM Ql (Urine sed)10-19 [HPF]0-2FFairfield Medical CenterUrate [Mass/volume] in Serum or PlasmaOrdered By: Elpidio Whipple on 81-02-8303Iatal [Mass/Vol]7.1 mg/dL2.3-6.6FFairfield Medical CenterUrea nitrogen [Mass/volume] in Serum or PlasmaOrdered By: Elpidio Whipple on 11-11-5028Ncls nitrogen [Mass/Vol]29 mg/dL7-25[facility] Urine bacteria detection by automated methodOrdered By: Elpidio Whipple on 06-38-5829Idhscafk Auto Ql (U)None seenNone SeenGeorgetown Behavioral HospitalUrine clarity by refractometry automatedOrdered By: Elpidio Whipple on 19-74-1594Yvtzxcu Refractometry automated (U)ClearClearFFairfield Medical CenterUrine culture routineOrdered By: Elpidio Whipple on 99-93-5902Xslagfzn identified Cx Nom (U)2 DaysGeorgetown Behavioral HospitalUrine glucose measurement by automated test strip (mass/volume)Ordered By: Elpidio Whipple on 21-69-7073Phyptwl Auto test strip (U) [Mass/Vol]Normal mg/dLNoJ.W. Ruby Memorial HospitalUrine hemoglobin detection by automated test stripOrdered By: Elpidio Whipple on 08-31-9719Jgxbsawtbe Auto test strip Ql (U)NegativeNegative [facility] HospitalUrine leukocyte esterase detection by automated test stripOrdered By: Elpidio Whipple on 68-69-3951Dljscukje esterase Auto test strip Ql (U)2+NegativeGeorgetown Behavioral HospitalUrine protein/creatinine ratioOrdered By: Elpidio Whipple on 89-96-5148Pwvdxyl/Creatinine (U) [Ratio]426 mg/g{Cre}0-200Ge[facility] HospitalUrobilinogen Auto test strip (U) [Mass/Vol]Ordered By: Elpidio Whipple on 28-83-5400Jnbnzetqzgwh (U) [Mass/Vol]Normal mg/dLNoJ.W. Ruby Memorial HospitalVitamin D+Metabolites [Mass/volume] in Serum or PlasmaOrdered By: Elpidio Whipple on 02-88-8260Okhypiz D+Metabolites [Mass/Vol]48.0 ng/gR66-334VpgqldfjgGeorgetown Behavioral HospitalComment on above: VITAMIN D STATUS 25(OH)VITAMIN D RANGE (ng/mL) Deficient <20 Insufficient 20 to <45Ecyblfpcrj77 to 100Reference: Nayeli MF,Hannah NC, Jose GILBERT, et al. Evaluation,treatment, and prevention of vitamin D deficiency; an Endocrine Society clinical practice guideline. JCEM. 2010; 96(7):1911-30.pH Auto test strip (U)Ordered By: Elpidio Whipple on 11-74-4527aE (U)5.5 [pH]5.0-9.0[facility] HospitalRSVon 14-88-8598TDU Ag IA Ql (Unsp spec)NegativeNocameron regional medical center [facility] Other Alanine aminotransferase [Enzymatic activity/volume] in Serum or PlasmaOrdered By: Charan Casey on 26-88-8133LAO [Catalytic activity/Vol]16 U/L7-52[facility] HospitalAlbumin [Mass/volume] in Serum or Plasma by Bromocresol green (BCG) dye binding methoOrdered By: Charan Casey on 41-94-5950Aqbwzbn BCG dye [Mass/Vol]4.2 g/dL3.5-5.7FFairfield Medical CenterAlkaline phosphatase [Enzymatic activity/volume] in Serum or PlasmaOrdered By: Charan Casey on 25-36-3264ZHJ [Catalytic activity/Vol]65 U/L 34-104[facility] HospitalAspartate aminotransferase [Enzymatic activity/volume] in Serum or PlasmaOrdered By: Charan Casey on 38-08-3752CQC [Catalytic activity/Vol]16 U/U91-94VwmhzthqqGeorgetown Behavioral Hospital Bilirubin.total [Mass/volume] in Serum or PlasmaOrdered By: Charan Casey on 74-62-2477Bktpdcvao [Mass/Vol]0.6 mg/dL0.3-1.0[facility] Calcium [Mass/volume] in Serum or PlasmaOrdered By: Charan Casey on 11-26-2023 Calcium [Mass/Vol]9.8 mg/dL8.6-10.3FFairfield Medical CenterCarbon dioxide, total [Moles/volume] in Serum or PlasmaOrdered By: Charan Casey on 03-33-1770TX6 [Moles/Vol]34.6 mmol/L21.0-31.0[facility] Chloride [Moles/volume] in Serum or PlasmaOrdered By: Charan Casey on 11-26-2023 Chloride [Moles/Vol]101 mmol/Y95-991CrmltvxxfGeorgetown Behavioral HospitalCholesterol [Mass/volume] in Serum or PlasmaOrdered By: Charan Casey on 56-63-8823Yrhlxfgdirk [Mass/Vol]140 mg/mT937-716IctjuxdeeGeorgetown Behavioral HospitalComment on above: Chol less than 200 mg/dl low riskChol 201-239 mg/dl borderline riskChol 240 mg/dl and greater high riskCholesterol in LDL Calc [Mass/Vol]Ordered By: Charan Casey on 52-02-8517Qbcimbjlbat in LDL [Mass/Vol]56 mg/dL0-100[facility] HospitalComment on above:LDL ATP III CLASSIFICATIONLDL less than 100 mg/dL OptimalLDL 100-129 mg/dL Near or above jcxxnvhTUX365-856 mg/dL Borderline highLDL 160-189 mg/dL HighLDL greater than 189 mg/dL Very highCholesterol in VLDL Calc [Mass/Vol]Ordered By: Charan Casey on 38-51-1097Aspsrzfbewv in VLDL [Mass/Vol]45 mg/dLGeorgetown Behavioral HospitalCreatinine [Mass/volume] in Serum or PlasmaOrdered By: Charan Casey on 14-17-7713Rmftyiztpg [Mass/Vol]1.25 mg/dL0.60-1.20[facility] HospitalGlobulin Calc (S) [Mass/Vol] Ordered By: Charan Casey on 03-26-3206Euzuxvka (S) [Mass/Vol]2.6 g/dLGeorgetown Behavioral HospitalGlucose [Mass/volume] in Serum or PlasmaOrdered By: Charan Casey on 01-38-9889Tjaosoj [Mass/Vol]122 mg/rO60-017SzjixwqjbGeorgetown Behavioral HospitalComment on above:ADA recommended reference rangeRandom Glucose Reference Range is dependent on time and content of last meal. Glucose of more than 200 mg/dL in a nonstressed, ambulatory subject supports the diagnosisof Diabetes Mellitus.No Panel InformationOrdered By: Charan Casey on 86-35-9900Obrtyxnge GFR (CKD-EPI)48.432 mL/MinGeorgetown Behavioral HospitalPharmacy Creatinine Clearance (ChemN/AFirelands Shelby Memorial HospitalPotassium [Moles/volume] in Serum or PlasmaOrdered By: Charan Casey on 11-61-9422Rtxtgdqkj [Moles/Vol]4.6 mmol/L3.5-5.1FFairfield Medical CenterProtein [Mass/volume] in Serum or PlasmaOrdered By: Charan Casey on 91-26-2198Piddpgb [Mass/Vol]6.8 g/dL6.4-8.9 [facility] Akronerum or plasma albumin/globulin mass ratio Ordered By: Charan Casey on 22-19-6058Wllnojs/Globulin [Mass ratio]1.6 {ratio} [facility] Akronerum or plasma anion gap determinationOrdered By: Charan Casey on 06-07-5241Sudsn gap [Moles/Vol]9.0 mmol/L6.0-15.0[facility] Akronerum or plasma high density lipoprotein (HDL) cholesterol measurementOrdered By: Charan Casey on 45-85-9543Jdogkenudoq in HDL [Mass/Vol]39 mg/xF34-72EzlbgkiveGeorgetown Behavioral HospitalComment on above:HDL CHOL ATP-III CLASSIFICATION Cardiovascular RiskHDL > or equal to 60 mg/dL LOWHDL < 40 mg/dL HIGHSerum or plasma total cholesterol/high density lipoprotein (HDL) cholesterol mass ratOrdered By: Charan Casey on 11-26-2023 Cholesterol.total/Cholesterol in HDL [Mass ratio]3.6 {ratio}<5.0[facility] - Akronodium [Moles/volume] in Serum or PlasmaOrdered By: Charan Casey on 78-22-1786Clhlqy [Moles/Vol]140 mmol/D012-292SdsgldyzfGeorgetown Behavioral HospitalTriglyceride [Mass/volume] in Serum or PlasmaOrdered By: Charan Casey on 39-01-3316Bfhrncefhans [Mass/Vol]227 mg/dL0-149[facility] Comment on above:TRIG ATP III CLASSIFICATIONTRIG less than 150 mg/dL NormalTRIG 150-199 mg/dL Borderline highTRIG 200-500 mg/dL High TRIG greater than 500 mg/dL Very highStandard traceable to the Center for Disease Conrtrol and Prevention (CDC) test method.Urea nitrogen [Mass/volume] in Serum or PlasmaOrdered By: Charan Casey on 26-80-0549Gvcy nitrogen [Mass/Vol]32 mg/dL7[facility] HospitalGlucose Glucometer (BldC) [Mass/Vol]Ordered By: Yasmeen Treadwell on 35-13-5969Zjykfaq [Mass/Vol]150 mg/dLGeorgetown Behavioral HospitalComment on above:Random Glucose Reference Range is dependent on time and content of last meal. Glucose of more than 200 mg/dL in a nonstressed, ambulatory subject supports the diagnosis of Diabetes Mellitus.Albumin [Mass/volume] in Serum or Plasma by Bromocresol green (BCG) dye binding methoOrdered By: Elpidio Whipple on 15-71-7060Xgxtezj BCG dye [Mass/Vol]4.5 g/dL3.5-5.7FFairfield Medical CenterAutomated erythrocytes count in urine sediment (number/area)Ordered By: Elpidio Whipple on 59-24-3899CBG Auto (Urine sed) [#/Area]None seen [HPF]0-4 [facility] HospitalAutomated leukocytes count in urine sediment (number/area)Ordered By: Elpidio Whipple on 98-29-5078EBA Auto (Urine sed) [#/Area] 1-2 [HPF]0-4FFairfield Medical CenterBilirubin Test strip Ql (U)Ordered By: Elpidio Whipple on 64-30-4501Xsiqbbgkk Ql (U)NegativeNegativeGeorgetown Behavioral HospitalCalcium [Mass/volume] in Serum or PlasmaOrdered By: Elpidio Whipple on 67-56-1616Gbaumqe [Mass/Vol]9.5 mg/dL8.6-10.3FFairfield Medical Center Carbon dioxide, total [Moles/volume] in Serum or PlasmaOrdered By: Elpidio Whipple on 79-06-9923MD3 [Moles/Vol]29.7 mmol/L21.0-31.0[facility] HospitalChloride [Moles/volume] in Serum or PlasmaOrdered By: Elpidio Whipple on 55-07-6528Zfndoxvk [Moles/Vol]106 mmol/T48-457BkexsiorwGeorgetown Behavioral Hospital Color Auto (U)Ordered By: Elpidio Whipple on 97-58-9737Wvtsp (U)Dark yellowYellow [facility] HospitalCreatinine [Mass/volume] in Serum or Plasma Ordered By: Elpidio Whipple on 59-09-5480Wamkxcdxeo [Mass/Vol]1.29 mg/dL0.60-1.20 [facility] HospitalCreatinine [Mass/volume] in UrineOrdered By: Elpidio Whipple on 36-63-0999Bspgmxxgwj (U) [Mass/Vol]87.0 mg/dL11.0-20.0[facility] HospitalErythrocyte distribution width Auto (RBC) [Ratio]Ordered By: Elpidio Whipple on 41-17-2382Mwnrszaqnxw distribution width (RBC) [Ratio]13.5 % 11.9-15.3FFairfield Medical CenterGlucose [Mass/volume] in Serum or PlasmaOrdered By: Elpidio Whipple on 38-66-4024Kujdsvb [Mass/Vol]97 mg/sU48-195 [facility] HospitalComment on above:ADA recommended reference rangeRandom Glucose Reference Range is dependent on time and content of last meal. Glucose of more than 200 mg/dL in a nonstressed, ambulatory subject supports the diagnosisof Diabetes Mellitus.Hematocrit Auto (Bld) [Volume fraction]Ordered By: Elpidio Whipple on 86-84-8168Rwiusqyvxm (Bld) [Volume fraction] 42.7 %34.0-46.4FFairfield Medical CenterHemoglobin [Mass/volume] in BloodOrdered By: Elpidio Whipple on 98-95-1983Jhvotnmzgm (Bld) [Mass/Vol]14.3 g/dL 11.8-15.4FFairfield Medical CenterKetones Auto test strip (U) [Mass/Vol] Ordered By: Elpidio Whipple on 47-58-1311Ixzgtcx (U) [Mass/Vol]NegativeNegative [facility] HospitalLaboratory - UrinalysisOrdered By: Elpidio Whipple on 80-78-8542Rpctnnp casts LM Ql (Urine sed)0-8 [LPF]0-8[facility] HospitalLeukocytes [#/volume] corrected for nucleated erythrocytes in Blood by Automated counOrdered By: Elpidio Whipple on 97-85-0440ZIR corrected for nucl RBC Auto (Bld) [#/Vol]7.7 10*3/uL3.8-11.6FFairfield Medical Center MCH Auto (RBC) [Entitic mass]Ordered By: Elpidio Whipple on 57-82-2449VTT (RBC) [Entitic mass]29.1 pg24.7-34.3FFairfield Medical CenterMCHC Auto (RBC) [Mass/Vol]Ordered By: Elpidio Whipple on 35-30-2944JYEP (RBC) [Mass/Vol]33.6 g/dL 32.0-35.0[facility] HospitalMCV Auto (RBC) [Entitic vol]Ordered By: Elpidio Whipple on 59-26-1808IXK (RBC) [Entitic vol]86.5 zA36-569FvcrpnwwsGeorgetown Behavioral HospitalMagnesium [Mass/volume] in Serum or PlasmaOrdered By: Elpidio Whipple on 88-75-0986Cknlxvquj [Mass/Vol]1.9 mg/dL1.9-2.7FFairfield Medical CenterNitrite Test strip Ql (U)Ordered By: Elpidio Whipple on 09-14-2023 Nitrite Ql (U)NegativeNegativeGeorgetown Behavioral HospitalNo Panel InformationOrdered By: Elpidio Whipple on 22-06-6166Shzjxixrm GFR (CKD-EPI)46.926 mL/MinGeorgetown Behavioral HospitalPharmacy Creatinine Clearance (ChemN/A [facility] HospitalParathyrin.intact [Mass/volume] in Serum or PlasmaOrdered By: Elpidio Whipple on 29-97-6985Ghhoinyazr.intact [Mass/Vol]133.6 pg/cI44-82UtjwxfvenGeorgetown Behavioral HospitalPhosphate [Mass/volume] in Serum or PlasmaOrdered By: Elpidio Whipple on 06-31-6682Bnzgbttez [Mass/Vol]3.4 mg/dL3.7-7.2 [facility] HospitalPlatelet mean volume Auto (Bld) [Entitic vol] Ordered By: Elpidio Whipple on 07-29-0280Pzicclqh mean volume (Bld) [Entitic vol] 10.0 fL6.3-10.7FFairfield Medical CenterPlatelets Auto (Bld) [#/Vol] Ordered By: Elpidio Zarater on 93-79-7205Dmvjsimsu (Bld) [#/Vol]193 10*3/bY746-781 [facility] HospitalPotassium [Moles/volume] in Serum or Plasma Ordered By: Elpidio Sole on 28-21-5409Heqlyiubs [Moles/Vol]4.7 mmol/L3.5-5.1 [facility] HospitalProtein Auto test strip (U) [Mass/Vol]Ordered By: Elpidio Sole on 01-56-2550Iqoerlv (U) [Mass/Vol]NegativeNegativeGeorgetown Behavioral HospitalProtein [Mass/volume] in UrineOrdered By: Elpidio Sole on 22-54-9913Wxeohzw (U) [Mass/Vol]12 mg/dL0-9[facility] HospitalRBC Auto (Bld) [#/Vol]Ordered By: Elpidio Silvadir on 30-71-3326FUD (Bld) [#/Vol]4.93 10*6/uL3.60-5.00[facility] Akronerum or plasma anion gap determinationOrdered By: Elpidio Sole on 09-64-6678Kobtd gap [Moles/Vol]11.0 mmol/L6.0-15.0[facility] - Akronodium [Moles/volume] in Serum or PlasmaOrdered By: Elpidio Sole on 20-25-7898Ogezhx [Moles/Vol]142 mmol/Z031-229 [facility] Akronpecific gravity Auto test strip (U) [Rel density]Ordered By: Elpidio Sole on 05-20-5316Fzlfeqzm gravity (U) [Rel density] 1.0201.001-1.030[facility] - Akronquamous epithelial cells detection in urine sediment by light microscopyOrdered By: Elpidio Zarater on 38-30-9208Ihwgmytkev cells.squamous LM Ql (Urine sed)3-4 [HPF]0-2FFairfield Medical CenterUrate [Mass/volume] in Serum or PlasmaOrdered By: Elpidio Sole on 44-36-1366Gomyd [Mass/Vol]6.2 mg/dL2.3-6.6FFairfield Medical CenterUrea nitrogen [Mass/volume] in Serum or PlasmaOrdered By: Elpidio Whipple on 36-01-3984Slav nitrogen [Mass/Vol]46 mg/dL7-25[facility] Urine bacteria detection by automated methodOrdered By: Elpidio Whipple on 48-19-3086Dprbpsfo Auto Ql (U)None seenNone SeenGeorgetown Behavioral HospitalUrine clarity by refractometry automatedOrdered By: Elpidio Whipple on 28-15-5417Dermqya Refractometry automated (U)ClearClearFFairfield Medical CenterUrine glucose measurement by automated test strip (mass/volume) Ordered By: Elpidio Whipple on 02-09-8925Skdqvsc Auto test strip (U) [Mass/Vol] Normal mg/dLHighland District HospitalUrine hemoglobin detection by automated test stripOrdered By: Elpidio Whipple on 17-45-7170Wikfgwejyg Auto test strip Ql (U)NegativeNegativeGeorgetown Behavioral HospitalUrine leukocyte esterase detection by automated test stripOrdered By: Elpidio Whipple on 09-14-2023 Leukocyte esterase Auto test strip Ql (U)1+NegativeGeorgetown Behavioral HospitalUrine protein/creatinine ratioOrdered By: Elpidio Sole on 09-14-2023 Protein/Creatinine (U) [Ratio]138 mg/g{Cre}0-200[facility] HospitalUrobilinogen Auto test strip (U) [Mass/Vol]Ordered By: Elpidio Whipple on 75-92-9245Dcedkocarhae (U) [Mass/Vol]Normal mg/dLNoJ.W. Ruby Memorial HospitalVitamin D+Metabolites [Mass/volume] in Serum or PlasmaOrdered By: Elpidio Whipple on 06-14-9129Crajkjt D+Metabolites [Mass/Vol]50.6 ng/cX16-831 [facility] HospitalComment on above:VITAMIN D STATUS 25(OH)VITAMIN D RANGE (ng/mL) Deficient <20 Insufficient 20 to <19Duvmmvwssx53 to 100Reference: Nayeli MF,Hannah NC, Jose GILBERT, et al. Evaluation,treatment, and prevention of vitamin D deficiency; an Endocrine Society clinical practice guideline. JCEM. 2011 Jorge; 96(7):1911-30.pH Auto test strip (U)Ordered By: Elpidio Whipple on 19-92-8253qK (U)5.5 [pH]5.0-9.0[facility] HospitalUrine 10 SGon 12-66-1323Kcutprh DL <= 20 mg/L (U) [Mass/Vol]NegativeSouth [facility] Other pH (U)6.0 [pH][place] [facility] Other urine 10 SGNegativeNocameron regional medical center [facility] Other urine 10 SG1.010[facility] Other urine 10 SG0.2[facility] Other Height or Weight NOT Doneon 65-30-6576Nvupq depression screening assessmentNoCap[facility] Yieldex DO Work Phone: Fall risk assessmenta) No falls within the last year [facility] Yieldex DO Work Phone: Tobacco use status CPHSb) NoMNewport [facility] Cladwell DO Work Phone: Office Visit (Cardiology)on 41-46-6580Ndpdwx-up visit Diagnoses/Problems Assessed CAD (coronary artery disease) [...] any trouble since her angioplasty. She has Cgynkrn-Jhidz-Axwfm disease and had recent surgery on the [...] machine patient has been compliant with it. 7?Cqshara-Hbbxp-Ancin joint in the ankles status post recent [...] TABLET DAILY. Vitamin D (Ergocalciferol) 1.25 MG (93762 UT) Oral CapsuleTake 1 tablet twice weekly Allergies Medication Erythromycin Base TABS Adverse Reaction; Gatrointestinal upset; Updated By: Adrianna Emanuel; (more content not included)...NormalUH [facility] Rusk CountyPOINT OF CARE GLUCOSEon 04-13-2023 Glucose [Mass/Vol]215 mg/dLCritically gnff08-623Qcb [facility] HospitalComment on above:Performed By: #### POCGLUC ####[facility] [address] StreetBellevue, [place] [address]Dt. Yilan ChangPROF CHEM 8 (BAS METB)on 03-31-2023 Anion gap [Moles/Vol]9.6 mmol/LNormalThe [facility] HospitalComment on above: Performed By: #### BMP ####[facility] [address] [id number].Yilan ChangCalcium [Mass/Vol]10.3 mg/dLCritically high8.5-10.1The [facility] HospitalComment on above:Performed By: #### BMP ####[facility] [address] [place], [place] [address]Dr. Yilan ChangChloride [Moles/Vol]103 mmol/QLvhkxv09-854Alp [facility] Comment on above:Performed By: #### BMP ####[facility] [address] [place], [place] [address]Dr.Yilan ChangCO2 [Moles/Vol]31.0 mmol/L Tdfrgs22.0-32.0The [facility] HospitalComment on above:Performed By: #### BMP ####[facility] [address] [place], [place] [address]Dr. Yilan ChangCreatinine [Mass/Vol]1.48 mg/dLCritically high0.55-1.02The [facility] HospitalComment on above:Performed By: #### BMP ####[facility] [address] [place], [place] [address]Dr.Yilan ChangEGFR-AF DPCFPBWQ95 mL/min/1.22k2Vzpyccjegr low>=60The [facility] HospitalComment on above: Performed By: #### BMP ####[facility] [address] [address]Dr.Yilan ChangEGFR-NON AF FNUFHRLH35 mL/min/1.73m2 Critically low>=60The [facility] HospitalComment on above:Performed By: #### BMP ####[facility] [address] [place], [place] [address]Dr. Yilan ChangGlucose [Mass/Vol]173 mg/dLCritically vmon13-504Let [facility] Comment on above:Performed By: #### BMP ####[facility] [address] [place], [place] [address]Ee.Yilan ChangPotassium [Moles/Vol]4.6 mmol/LNormal3.5-5.1The [facility] HospitalComment on above:Performed By: #### BMP ####[facility] [address] [place], [place] [address]Ye. Yilan ChangSodium [Moles/Vol]139 mmol/XWcootv696-856Plp [facility] HospitalComment on above:Performed By: #### BMP ####[facility] [address] [place], [place] [address]Qn.Yilan ChangUrea nitrogen [Mass/Vol]63.0 mg/dL Critically high7.0-18.0The [facility] HospitalComment on above:Performed By: #### BMP ####[facility] [address] [place], [place] [address]Au. Yilan ChangUrea nitrogen/Creatinine [Mass ratio]42.6 mg/mgNormalThe [facility] HospitalComment on above:Performed By: #### BMP ####[facility] [address] [place], [place] [address]Hu.Yilan ChangCT FOOT LT WO CONon 20-66-3283MD FOOT LT WO CONEXAMINATION: CT FOOT LT [...] Electronically authenticated by: BLANKA OLGUIN Date: 2023-03-23 14:59[facility] HospitalAlbumin [Mass/volume] in Serum or Plasma by Bromocresol green (BCG) dye binding methoOrdered By: Elpidio Whipple on 14-62-8538Zabicwo BCG dye [Mass/Vol]4.7 g/dL3.5-5.7FFairfield Medical CenterAutomated erythrocytes count in urine sediment (number/area)Ordered By: Elpidio Whipple on 58-76-6715QCN Auto (Urine sed) [#/Area]None seen [HPF]0-4FFairfield Medical Center Automated leukocytes count in urine sediment (number/area)Ordered By: Elpidio Whipple on 26-90-0458LDL Auto (Urine sed) [#/Area]5-9 [HPF]0-4FFairfield Medical CenterBilirubin Test strip Ql (U)Ordered By: Elpidio Whipple on 03-06-2023 Bilirubin Ql (U)NegativeNegativeGeorgetown Behavioral HospitalCalcium [Mass/volume] in Serum or PlasmaOrdered By: Elpidio Whipple on 40-01-1007Ormtrou [Mass/Vol]10.2 mg/dL8.6-10.3FFairfield Medical CenterCarbon dioxide, total [Moles/volume] in Serum or PlasmaOrdered By: Elpidio Whipple on 47-07-8866QW8 [Moles/Vol]28.4 mmol/L21.0-31.0[facility] HospitalChloride [Moles/volume] in Serum or PlasmaOrdered By: Elpidio Whipple on 60-89-4843Qtsrfizm [Moles/Vol]104 mmol/K63-790FwnrhbhciGeorgetown Behavioral HospitalColor Auto (U) Ordered By: Elpidio Whipple on 53-92-9640Iepxr (U)Dark yellowYellowGeorgetown Behavioral HospitalCreatinine [Mass/volume] in Serum or PlasmaOrdered By: Elpidio Whipple on 27-27-2902Oymfhnqwjw [Mass/Vol]1.22 mg/dL0.60-1.20[facility] HospitalCreatinine [Mass/volume] in UrineOrdered By: Elpidio Whipple on 83-53-2499Bcecmapkhr (U) [Mass/Vol]98.0 mg/dLGeorgetown Behavioral HospitalComment on above:No reference range establishedErythrocyte distribution width Auto (RBC) [Ratio]Ordered By: Elpidio Whipple on 02-81-5078Xtchnsvtsdh distribution width (RBC) [Ratio]13.8 %11.9-15.3FFairfield Medical Center Glucose [Mass/volume] in Serum or PlasmaOrdered By: Elpidio Whipple on 03-06-2023 Glucose [Mass/Vol]101 mg/xC04-100FrkijooexGeorgetown Behavioral HospitalComment on above:ADA recommended reference rangeRandom Glucose Reference Range is dependent on time and content of last meal. Glucose of more than 200 mg/dL in a nonstressed, ambulatory subject supports the diagnosisof Diabetes Mellitus. Hematocrit Auto (Bld) [Volume fraction]Ordered By: Elpidio Whipple on 03-06-2023 Hematocrit (Bld) [Volume fraction]38.1 %34.0-46.4FFairfield Medical CenterHemoglobin [Mass/volume] in BloodOrdered By: Elpidio Whipple on 03-06-2023 Hemoglobin (Bld) [Mass/Vol]12.7 g/dL11.8-15.4FFairfield Medical Center Ketones Auto test strip (U) [Mass/Vol]Ordered By: Elpidio Whipple on 03-06-2023 Ketones (U) [Mass/Vol]NegativeNegativeGeorgetown Behavioral Hospital Laboratory - UrinalysisOrdered By: Elpidio Whipple on 20-54-8414Umyfsae casts LM Ql (Urine sed)0-8 [LPF]0-8[facility] HospitalLeukocytes [#/volume] corrected for nucleated erythrocytes in Blood by Automated counOrdered By: Elpidio Whipple on 99-07-4691TCI corrected for nucl RBC Auto (Bld) [#/Vol]5.4 10*3/uL 3.8-11.6FFairfield Medical CenterMCH Auto (RBC) [Entitic mass]Ordered By: Elpidio Whipple on 68-66-4145VWY (RBC) [Entitic mass]28.1 pg24.7-34.3FFairfield Medical CenterMCHC Auto (RBC) [Mass/Vol]Ordered By: Elpidio Whipple on 18-32-8487OPEZ (RBC) [Mass/Vol]33.3 g/dL32.0-35.0[facility] HospitalMCV Auto (RBC) [Entitic vol]Ordered By: Elpidio Whipple on 75-25-2700ZCT (RBC) [Entitic vol]84.5 tW12-225WaxcwjhdaGeorgetown Behavioral HospitalMagnesium [Mass/volume] in Serum or PlasmaOrdered By: Elpidio Whipple on 04-89-3997Dfncqpqfm [Mass/Vol]1.5 mg/dL1.9-2.7FFairfield Medical CenterNitrite Test strip Ql (U)Ordered By: Elpidio Whipple on 32-22-3968Wcgjaah Ql (U)NegativeNegativeGeorgetown Behavioral HospitalNo Panel InformationOrdered By: Elpidio Whipple on 23-50-8950Zffldikjj GFR (CKD-EPI)50.176 mL/MinGeorgetown Behavioral Hospital Pharmacy Creatinine Clearance (ChemN/[facility] Parathyrin.intact [Mass/volume] in Serum or PlasmaOrdered By: Elpidio Whipple on 48-55-5433Etxjgpqjsb.intact [Mass/Vol]43.8 pg/oD70-50XbluxqnnhGeorgetown Behavioral HospitalPhosphate [Mass/volume] in Serum or PlasmaOrdered By: Elpidio Whipple on 25-04-8411Idqerkfgy [Mass/Vol]4.3 mg/dL3.7-7.2FFairfield Medical Center Platelet mean volume Auto (Bld) [Entitic vol]Ordered By: Elpidio Whipple on 70-28-7759Dsdoqocg mean volume (Bld) [Entitic vol]8.7 fL6.3-10.7FFairfield Medical CenterPlatelets Auto (Bld) [#/Vol]Ordered By: Elpidio Whipple on 81-81-5696Tlzdfsusp (Bld) [#/Vol]191 10*3/eB532-994JjyxynkhzGeorgetown Behavioral HospitalPotassium [Moles/volume] in Serum or PlasmaOrdered By: Elpidio Whipple on 63-93-9838Hzvvxpejk [Moles/Vol]4.0 mmol/L3.5-5.1FFairfield Medical CenterProtein Auto test strip (U) [Mass/Vol]Ordered By: Elpidio Whipple on 64-45-6757Cnaihxv (U) [Mass/Vol]NegativeNegativeGeorgetown Behavioral HospitalProtein [Mass/volume] in UrineOrdered By: Elpidio Whipple on 44-25-7316Asbblel (U) [Mass/Vol]8 mg/dL0-9[facility] HospitalRBC Auto (Bld) [#/Vol] Ordered By: Elpidio Whipple on 87-49-8096XOE (Bld) [#/Vol]4.51 10*6/uL3.60-5.00 [facility] Akronerum or plasma anion gap determinationOrdered By: Elpidio Whipple on 32-57-9570Cfdgr gap [Moles/Vol]12.6 mmol/L6.0-15.0[facility] - Akronodium [Moles/volume] in Serum or PlasmaOrdered By: Elpidio Whipple on 08-11-3125Zcricu [Moles/Vol]141 mmol/D421-110MtckqjmkcSelect Medical Specialty Hospital - Akronpecific gravity Auto test strip (U) [Rel density]Ordered By: Elpidio Whipple on 96-65-6504Xwwvpvpw gravity (U) [Rel density]1.0171.001-1.030 [facility] - Akronquamous epithelial cells detection in urine sediment by light microscopyOrdered By: Elpidio Whipple on 82-12-3856Xtghidsimk cells.squamous LM Ql (Urine sed)5-9 [HPF]0-2FFairfield Medical Center Urate [Mass/volume] in Serum or PlasmaOrdered By: Elpidio Whipple on 56-83-5260Owvrx [Mass/Vol]6.7 mg/dL2.3-6.6FFairfield Medical CenterUrea nitrogen [Mass/volume] in Serum or PlasmaOrdered By: Elpidio Whipple on 56-99-2764Homd nitrogen [Mass/Vol]37 mg/dL7-25[facility] HospitalUrine bacteria detection by automated methodOrdered By: Elpidio Silvadir on 59-30-5198Lbfrtntc Auto Ql (U)None seenNone SeenGeorgetown Behavioral HospitalUrine clarity by refractometry automatedOrdered By: Elpidio Sole on 65-73-7353Gydkhnz Refractometry automated (U)ClearClearFFairfield Medical CenterUrine culture routineOrdered By: Elpidio Silvadir on 84-26-1085Ymbmhmqw identified Cx Nom (U)2 DaysGeorgetown Behavioral HospitalUrine glucose measurement by automated test strip (mass/volume)Ordered By: Elpidio Silvadir on 63-83-2299Vctualn Auto test strip (U) [Mass/Vol]Normal mg/dLNoJ.W. Ruby Memorial HospitalUrine hemoglobin detection by automated test stripOrdered By: Elpidio Silvadir on 72-20-5975Lglnxvbwde Auto test strip Ql (U)NegativeNegativeGeorgetown Behavioral HospitalUrine leukocyte esterase detection by automated test stripOrdered By: Elpidio Silvadir on 79-59-9670Doxvaldsq esterase Auto test strip Ql (U)2+Negative [facility] HospitalUrine protein/creatinine ratioOrdered By: Elpidio Sole on 47-70-6800Ijkitdj/Creatinine (U) [Ratio]82 mg/g{Cre}0-200[facility] HospitalUrobilinogen Auto test strip (U) [Mass/Vol]Ordered By: Elpidio Sole on 13-14-7167Ilhgkakjeqmy (U) [Mass/Vol]Normal mg/dLNoJ.W. Ruby Memorial HospitalVitamin D+Metabolites [Mass/volume] in Serum or Plasma Ordered By: Elpidio Sole on 95-16-2942[place] D+Metabolites [Mass/Vol]46.0 ng/mL 30-100[facility] HospitalComment on above:VITAMIN D STATUS 25(OH)VITAMIN D RANGE (ng/mL) Deficient <20 Insufficient 20 to <42Uvbdjzcmjx04 to 100Reference: Nayeli MF,[place] NC, Jose GILBERT, et al. Evaluation,treatment, and prevention of vitamin D deficiency; an Endocrine Society clinical practice guideline. JCEM. 2010; 96(7):1911-30.pH Auto test strip (U)Ordered By: Elpidio Whipple on 81-09-7800qT (U)5.5 [pH]5.0-9.0[facility] HospitalXR FOOT LAURA MIN 3 VIEWSon 64-71-3688CW FOOT LAURA MIN 3 VIEWSEXAMINATION: XR FOOT [...] Electronically authenticated by: BRODERICK FLOR Date: 2023-02-17 14:34NormalThHenry County HospitalCB AUTO DIFFon 75-01-4965QEQA #0.0 103/ulNormal0.0-0.1A[facility] Health SystemComment on above:Performed By: #### CBC #### [facility] [address] [address] [address] Tere Naranjosophils/100 WBC (Bld)0.6 %Normal0.2-2.0[facility] Comment on above:Performed By: #### CBC #### [facility] [address] [address] [address] Tere Barksdale #0.1 103/ulNormal0.0-0.7The [facility] HospitalComment on above: Performed By: #### CBC #### [facility] [address] [address] [address] Tere Mendezosinophils/100 WBC (Bld)2.9 %Normal0.9-7.0The [facility] Comment on above:Performed By: #### CBC #### [facility] [address] [place] [address] Dr. Tere Mendezrythrocyte distribution width (RBC) [Ratio]13.2 %Hrccgi81.0-15.0 The [facility] HospitalComment on above:Performed By: #### CBC #### [facility] [address] [place] [address] Dr. Tere SotoHematocrit (Bld) [Volume fraction]39.0 %Uxemjc49.0-48.0The [facility] HospitalComment on above:Performed By: #### CBC #### [facility] [address] [place] [address] Dr. Tere SotoHemoglobin (Bld) [Mass/Vol]13.0 g/qIXbjwth91.0-16.0The [facility] Orthopedic Centerment on above:Performed By: #### CBC #### [facility] [address] [place] [address] Dr. Tere Carolina #0.01 10e3/ulNormal0.00-0.03The [facility] Orthopedic Centerment on above:Performed By: #### CBC #### [facility] [address] [place] [address] Dr. Tere Carolina %0.2 %Normal0.0-0.5The [facility] Orthopedic Centerment on above: Performed By: #### CBC #### [facility] [address] [place] [address] Dr. Tere Salguero #2.1 103/ulNormal1.2-3.8The [facility] on above:Performed By: #### CBC #### [facility] [address] [place] [address] Dr. Tere Escamillamphocytes/100 WBC (Bld)42.6 %Aatqsg06.5-60.0The [facility] HospitalComment on above:Performed By: #### CBC #### [facility] [address] [address] [address] Tere Mayfield DIFF REQNONormalThe [facility] HospitalComment on above: Performed By: #### CBC #### [facility] [address] [address] [address] Tere Lomeli (RBC) [Entitic mass]28.4 ekJwanmc75.7-34.0The [facility] HospitalComment on above:Performed By: #### CBC #### [facility] [address] [place] [address] Dr. Tere Lomeli (RBC) [Mass/Vol]33.3 g/jXPlytll30.9-35.2The [facility] HospitalComment on above:Performed By: #### CBC #### [facility] [address] [place] [address] Dr. Tere Lomeli (RBC) [Entitic vol]85.2 lKNgkccg78.0-99.0The [facility] HospitalComment on above:Performed By: #### CBC #### [facility] [address] [place] [address] Dr. Tere Tsai #0.3 103/ulNormal0.3-0.8The [facility] HospitalComment on above:Performed By: #### CBC #### [facility] [address] [place] [address] Dr. Tere Hillocytes/100 WBC (Bld)6.8 %Normal1.7-12.0The [facility] Comment on above:Performed By: #### CBC #### [facility] [address] [address] [address] Tere Green #2.3 103/ulNormal1.4-6.5The [facility] HospitalComment on above:Performed By: #### CBC #### [facility] [address] [place] [address] Dr. Tere Velezutrophils/100 WBC (Bld)46.9 %Sqsxes23.0-75.0The [facility] HospitalComment on above:Performed By: #### CBC #### [facility] [address] [address] [address] Tere Hernandezlet mean volume (Bld) [Entitic vol]11.3 fLNormal9.5-13.5The [facility] HospitalComment on above:Performed By: #### CBC #### [facility] [address] [place] [address] Dr. Tere SotoPLT183 103/pmZaqsrw535-000Gjg [facility] HospitalComment on above: Performed By: #### CBC #### [facility] [address] [place] [address] Dr. Tere SotoRBC4.58 106/ulNormal4.20-5.40The [facility] HospitalComformerly [facility] on above:Performed By: #### CBC #### [facility] [address] [place] [address] Dr. Tere SotoWBC4.8 103/ulNormal4.0-11.0The [facility] HospitalComment on above: Performed By: #### CBC #### [facility] [address] [place] [address] Dr. Tere SotoCovisonia-19 PCR ([facility]VDLA[facility])on 75-97-7839RFVV-CoV-2 (COVID-19) RNA AHMET+probe Ql (Unsp spec)Not detectedNormalNOT DETECTEDThe [facility] Comment on above:Result Comment: This test is not yet approved or cleared by the [place] FDA. When there are no FDA-approved or cleared tests available, and other criteria are met, FDA can make tests available under an emergency access mechanism called an Emergency Use Authorization (EUA). The EUA for this test is supported by the [place] of Health and Human Service's (HHS's) declaration [...] consistent with SARS-CoV-2.Performed By: #### CVDTBH #### [facility] [address] [place] [address] Dr. Tere SotoPROF CHEM 8 (BAS METB)on 34-28-9057Vkipt gap [Moles/Vol]13.6 mmol/LNormalThe [facility] HospitalComment on above:Performed By: #### BMP #### [facility] [address] [place] [address] Dr. Tere SotoCalcium [Mass/Vol]9.6 mg/dLNormal8.5-10.1The [facility] Comment on above:Performed By: #### BMP #### [facility] [address] [place] [address] Dr. Tere SotoChloride [Moles/Vol]103 mmol/QIrliow94-831Yfz [facility] Comment on above:Performed By: #### BMP #### [facility] [address] [place] [address] Dr. Tere SotoCO2 [Moles/Vol]28.9 mmol/XZbjpbk87.0-32.0[facility] Comment on above:Performed By: #### BMP #### [facility] [address] [place] [address] Dr. Tere SotoCreatinine [Mass/Vol]1.25 mg/dLCritically high0.55-1.02The [facility] HospitalComment on above:Performed By: #### BMP #### [facility] [address] [place] [address] Dr. Tere MendezGFR-AF BDNHBMJB34 mL/min/1.11p8Qqpvzhxewv low>=60The [facility] HospitalComment on above:Performed By: #### BMP #### [facility] [address] [place] [address] Dr. Tere MendezGFR-NON AF HIBYFBCO05 mL/min/1.06p2Wwfhmflmqf low>=60The [facility] HospitalComment on above:Performed By: #### BMP #### [facility] [address] [address] [address] Tere SotoGlucose [Mass/Vol]121 mg/dLCritically ezwr81-634Zyk [facility] on above:Performed By: #### BMP #### [facility] [address] [address] [address] Tere SotoPotassium [Moles/Vol]4.5 mmol/LNormal3.5-5.1[facility] Comment on above:Performed By: #### BMP #### [facility] [address] [address] [address] Tere SotoSodium [Moles/Vol]141 mmol/UTonkhd543-405Egn [facility] Comment on above:Performed By: #### BMP #### [facility] [address] [address] [address] Tere SotoUrea nitrogen [Mass/Vol]43.0 mg/dLCritically high7.0-18.0The [facility] on above:Performed By: #### BMP #### [facility] [address] [address] [address] Tere Cox nitrogen/Creatinine [Mass ratio]34.4 mg/mgNoUK HealthcareComment on above:Performed By: #### BMP #### [facility] [address] [address] [address] Tere SotoPROTIMEmarisela 08-26-9820QXI Coag (PPP) [Relative time]{INR}NormalThe [facility] on above:Performed By: #### PT, PTT ####[facility] [address] [address]Dr. Tere Seaman GUIDELINESSEE [facility] HospitalComformerly [facility] on above:Result Comment: DESIRED INR: 2.0 - 3.0 CONDITIONS NOT LISTED BELOW 2.5 - 3.5 FOR PROSTHETIC HEART VALVE REPLACEMENT 2.5 - 3.5 RECURRENT THROMBOSISPerformed By: #### PT, PTT ####[facility] [address] [id number]. Tere SotoPT Coag (PPP) [Time]9.8 sNormal9.0-11.6The [facility] HospitalComment on above:Performed By: #### PT, PTT ####[facility] [address] [place], [place] [address]Ec. Tere SotoPTTon 82-06-7726tBGS Coag (Bld) [Time]26.5 jVzanmo50.3-36.2[facility] Health SystemComment on above:Performed By: #### PT, PTT ####[facility] [address] [place], [place] [address]Nb. Tere SotoCT FOOT LT WO CONon 66-39-5980OH FOOT LT WO CONEXAMINATION: CT FOOT LT [...] Electronically authenticated by: BRODERICK FLOR Date: 2022-11-26 16:36NoUK HealthcareXR ANKLE LAURA MIN 3 VIEWSon 47-34-1432XB ANKLE LAURA MIN 3 VIEWS EXAMINATION: XR [...] changes; not appreciably changed. 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 Cardiac wiseshe has remained symptoms free. Recent lab data were reviewed from July 2022. LDL remains qmkd041 mg/dL. She has been only on Lovaza [...] machine patient has been compliant with it. 7?Nwaerjh-Wlool-Tmgxc joint in the left ankle and need [...] content not included)...NormalUH Touchworks Culture, MRSA Screenon 74-96-1549Kqhngvu, MRSA ScreenCulture, MRSA Screen-: Methicillin resistant Staph aureus not isolatedNormalSNew England Rehabilitation Hospital at LowellHgb A1Con 60-07-7155FqF6z (Bld) [Mass fraction]7.1 %High4.0-5.6SaCambridge Hospitaledimentation Rateon 01-57-7782Zcvrlmnxckcro Rate44 mm/Hr High0-20SNew England Rehabilitation Hospital at LowellC-Reactive Proteinon 28-11-0249Y-Reactive Protein0.4 mg/dLNormal0.0-0.4SNew England Rehabilitation Hospital at LowellCBC With Platelet and Differentialon 47-18-9507Mnj Imm Granulocytes0.01 E9/LNormalWesson Memorial HospitalAbsolute Basophils0.05 E9/LNormal0.00-0.20SNew England Rehabilitation Hospital at LowellAbsolute Eosinophils0.15 E9/LNormal0.05-0.50[facility] Absolute Lymphocytes2.20 E9/LNormal1.50-4.00[facility] Absolute Monocytes0.35 E9/LNormal0.10-0.95[facility] HospitalAbsolute Neutrophils1.88 E9/LNormal1.80-7.30SNew England Rehabilitation Hospital at LowellBasophils/100 WBC (Bld)1.1 %Normal0.0-2.0[facility] HospitalEosinophils/100 WBC (Bld)3.2 %Normal0.0-6.0[facility] HospitalHematocrit (Bld) [Volume fraction]36.9 %Ttelaa45.0-48.0[facility] HospitalHemoglobin (Bld) [Mass/Vol]12.4 g/bVOvkbtf56.5-15.5SNew England Rehabilitation Hospital at LowellImm Granulocytes 0.2 %Normal0.0-5.0[facility] HospitalLymphocytes/100 WBC (Bld)47.4 % High20.0-42.0[facility] HospitalMCH (RBC) [Entitic mass]29.7 pgNormal 26.0-35.0[facility] HospitalMCHC33.6 %Qgroal24.0-34.5SNew England Rehabilitation Hospital at LowellMCV (RBC) [Entitic vol]88.3 nWGzcuoa10.0-99.9[facility] HospitalMonocytes/100 WBC (Bld)7.5 %Normal2.0-12.0[facility] Neutrophils/100 WBC (Bld)40.6 %Low43.0-80.0[facility] HospitalPlatelet Lfewz663 E9/WSconoz509-915OhutnWesson Memorial HospitalPlatelet mean volume (Bld) [Entitic vol]11.7 fLNormal7.0-12.0[facility] HospitalRBC4.18 E12/LNormal3.50-5.50[facility] HospitalRDW13.3 lEDobttm23.5-15.0[facility] HospitalWBC4.6 E9/LNormal4.5-11.5SNew [facility] at Lowell Comprehensive Metabolic Panelon 11-67-9681Rncgvgx [Mass/Vol]4.3 g/dLNormal 3.5-5.2SNew England Rehabilitation Hospital at LowellALP [Catalytic activity/Vol]71 U/LNormal 35-104W[facility]on Memorial HospitalALT [Catalytic activity/Vol]12 U/LNormal0-32 [facility] HospitalAnion gap [Moles/Vol]10 mmol/LNormal7-16SNew England Rehabilitation Hospital at LowellAST [Catalytic activity/Vol]19 U/LNormal0-31[facility] HospitalBilirubin [Mass/Vol]0.3 mg/dLNormal0.0-1.2SNew England Rehabilitation Hospital at LowellCalcium [Mass/Vol]10.3 mg/dLHigh8.6-10.2SNew England Rehabilitation Hospital at LowellChloride [Moles/Vol]103 mmol/VVybbrc51-291JfmejWesson Memorial HospitalCO2 [Moles/Vol]27 mmol/EQrathn53-33BunqhWesson Memorial HospitalCreatinine [Mass/Vol]1.2 mg/dLHigh0.5-1.0[facility] HospitalGFR/1.73 sq M.predicted among non-blacks MDRD (S/P/Bld) [Vol rate/Area]51 mL/min/{1.73_m2} Normal>=60W[facility]on Memorial HospitalComment on above:Result Comment: Pediatric calculator link [...] that affects renal tubular secretion.Glucose [Mass/Vol]111 mg/dLHigh 74-99[facility] HospitalPotassium [Moles/Vol]4.6 mmol/LNormal3.5-5.0 [facility] HospitalProtein [Mass/Vol]7.3 g/dLNormal6.4-8.3SFarren Memorial Hospitalodium [Moles/Vol]140 mmol/ISwjpqy647-779VdawaWesson Memorial HospitalUrea nitrogen [Mass/Vol]30 mg/dLHigh6-23W[facility] HospitalAlbumin [Mass/volume] in Serum or PlasmaOrdered By: Charan Casey on 10-99-4411Xboekla [Mass/Vol]3.9 g/dL3.2-5.5FFairfield Medical Center Automated erythrocytes count in urine sediment (number/area)Ordered By: Elpidio Whipple on 09-07-4504ING Auto (Urine sed) [#/Area]0-1 [HPF]0-4FFairfield Medical CenterAutomated leukocytes count in urine sediment (number/area)Ordered By: Elpidio Whipple on 48-49-2538EBC Auto (Urine sed) [#/Area]None seen [HPF]0-4 [facility] HospitalBasophils Auto (Bld) [#/Vol]Ordered By: Charan Casey on 50-19-0244Fdiaotsax (Bld) [#/Vol]0.1 10*3/uL0.0-0.2FFairfield Medical CenterBasophils/100 WBC Auto (Bld)Ordered By: Charan Casey on 08-13-2022 Basophils/100 WBC (Bld)1.0 %.[facility] HospitalBilirubin Test strip Ql (U)Ordered By: Elpidio Whipple on 53-17-8248Hjtheotue Ql (U)Negative NegativeGeorgetown Behavioral HospitalCholesterol [Mass/volume] in Serum or PlasmaOrdered By: Charan Casey on 92-94-2719Baemccnvroa [Mass/Vol]170 mg/vA873-703 [facility] HospitalComment on above:Chol less than 200 mg/dl low riskChol 201-239 mg/dl borderline riskChol 240 mg/dl and greater high risk Cholesterol in LDL Calc [Mass/Vol]Ordered By: Charan Casey on 08-13-2022 Cholesterol in LDL [Mass/Vol]101 mg/dL0-100[facility] Comment on above:LDL ATP III CLASSIFICATIONLDL less than 100 mg/dL OptimalLDL 100-129 mg/dL Near or above diatnytEQZ490-527 mg/dL Borderline highLDL 160-189 mg/dL HighLDL greater than 189 mg/dL Very highCholesterol in VLDL Calc [Mass/Vol]Ordered By: Charan Casey on 05-48-1841Bgnitjckpqv in VLDL [Mass/Vol]41 mg/dLGeorgetown Behavioral HospitalColor Auto (U)Ordered By: Elpidio Whipple on 10-38-2492Hqinf (U)Dark yellowYellowGeorgetown Behavioral HospitalCreatinine [Mass/volume] in UrineOrdered By: Elpidio Whipple on 37-23-1996Jjvsabxrzh (U) [Mass/Vol]127.6 mg/dLGeorgetown Behavioral HospitalComment on above:No reference range establishedCreatinine and Glomerular filtration rate.predicted panel (S/P/Bld)Ordered By: Charan Casey on 55-82-2300Umksfpbnzg [Mass/Vol]1.41 mg/dL0.44-1.03[facility] HospitalEosinophils Auto (Bld) [#/Vol] Ordered By: Charan Casey on 82-76-0164Nyhnxtnerai (Bld) [#/Vol]0.1 10*3/uL0.0-0.45 [facility] HospitalEosinophils/100 WBC Auto (Bld)Ordered By: Charan Casey on 60-85-1241Forfovaoxdl/100 WBC (Bld)1.7 %.[facility] HospitalErythrocyte distribution width Auto (RBC) [Ratio]Ordered By: Charan Casey on 16-59-9479Yxzzloeieau distribution width (RBC) [Ratio]13.1 %11.9-15.3FFairfield Medical CenterEstimated glomerular filtration rate (GFR) non- AmericanOrdered By: Charan Casey on 62-91-8624ZLC/1.73 sq M.predicted among non- blacks MDRD (S/P/Bld) [Vol rate/Area]38 mL/MinGeorgetown Behavioral Hospital Globulin Calc (S) [Mass/Vol]Ordered By: Charan Casey on 85-40-6702Cgfzshvq (S) [Mass/Vol]3.1 g/dLGeorgetown Behavioral HospitalHematocrit Auto (Bld) [Volume fraction]Ordered By: Charan Casey on 75-61-5659Uraybrgaze (Bld) [Volume fraction] 38.0 %34.0-46.4FFairfield Medical CenterHemoglobin [Mass/volume] in BloodOrdered By: Charan Casey on 31-65-8979Xndvtqtrhc (Bld) [Mass/Vol]12.6 g/dL 11.8-15.4FFairfield Medical CenterKetones Auto test strip (U) [Mass/Vol] Ordered By: Elpidio Whipple on 16-12-9402Iotaiap (U) [Mass/Vol]NegativeNegative [facility] HospitalLaboratory - Chemistry and Chemistry - challengeOrdered By: Elpidio Whipple on 91-24-1311Ztxwpopto [Mass/Vol]1.9 mg/dL 1.6-2.6FFairfield Medical CenterLaboratory - Hematology and Cell counts Ordered By: Charan Casey on 00-10-1631Fqxpcsuhf RBC/100 WBC (Bld) [Ratio]0.0 % 0-0.5FFairfield Medical CenterLaboratory - UrinalysisOrdered By: Elpidio Whipple on 59-41-6007Jncnddg casts LM Ql (Urine sed)0-8 [LPF]0-8[facility] HospitalLeukocytes [#/volume] in Blood by Automated countOrdered By: Charan Casey on 55-81-7165MOT (Bld) [#/Vol]8.2 10*3/uL4.5-11.0[facility] HospitalLymphocytes Auto (Bld) [#/Vol]Ordered By: Charan Casey on 08-13-2022 Lymphocytes (Bld) [#/Vol]2.8 10*3/uL1.00-4.8[facility] Lymphocytes/100 WBC Auto (Bld)Ordered By: Charan Casey on 08-13-2022 Lymphocytes/100 WBC (Bld)34.1 %.[facility] HospitalH Auto (RBC) [Entitic mass]Ordered By: Charan Casey on 08-89-7844LHK (RBC) [Entitic mass]28.5 pg24.7-34.3FFirelands Regional Medical CenterHC Auto (RBC) [Mass/Vol]Ordered By: Charan Casey on 07-83-9033JHQC (RBC) [Mass/Vol]33.2 g/dL32.0-35.0[facility] HospitalMCV Auto (RBC) [Entitic vol]Ordered By: Charan Casey on 89-51-4952AHT (RBC) [Entitic vol]85.8 wS69-188MjhohjevlGeorgetown Behavioral Hospital Monocytes Auto (Bld) [#/Vol]Ordered By: Charan Casey on 92-06-5217Dgmnooobp (Bld) [#/Vol]0.5 10*3/uL0.0-0.8[facility] HospitalMonocytes/100 WBC Auto (Bld)Ordered By: Charan Casey on 69-79-4284Fyprumvtu/100 WBC (Bld)6.4 %.[facility] HospitalNeutrophils Auto (Bld) [#/Vol]Ordered By: Charan Casey on 69-42-5891Bxxrzxepjkc (Bld) [#/Vol]4.7 10*3/uL1.8-7.7FFairfield Medical CenterNeutrophils/100 WBC Auto (Bld)Ordered By: Charan Casey on 08-13-2022 Neutrophils/100 WBC (Bld)56.8 %.[facility] HospitalNitrite Test strip Ql (U)Ordered By: Elpidio Whipple on 36-16-5715Ecoxhdo Ql (U)NegativeNegative [facility] HospitalNo Panel InformationOrdered By: Charan Casey on 12-98-312675333055-Zgodusm Vitamin D Total37.8 ng/uW88-377FiyscycybGeorgetown Behavioral HospitalComment on above:VITAMIN D STATUS 25(OH)VITAMIN D RANGE (ng/mL) Deficient <20 Insufficient 20 to <21Qranluysfw42 to 100Reference: Nayeli MF,Hannah SCHREIBER, Jose GILBERT, et al. Evaluation,treatment, and prevention of vitamin D deficiency; an Endocrine Society clinical practice guideline. JCEM. 2010; 96 (7):1911-30.Estimated GFR ()46 mL/MinGeorgetown Behavioral HospitalComment on above:GFR estimated reference range: According to KDOQI guidelines, <60 ml/min/1.73m2 is sufficient todiagnose a patient with chronic kidney disease.Pharmacy Creatinine Clearance (ChemN/[facility] HospitalPlatelet mean volume Auto (Bld) [Entitic vol]Ordered By: Charan Casey on 98-54-9384Ucryloft mean volume (Bld) [Entitic vol]9.2 fL6.3-10.7FFairfield Medical CenterPlatelets Auto (Bld) [#/Vol]Ordered By: Charan Casey on 97-64-5522Afbgvjuye (Bld) [#/Vol]272 10*3/mD973-962VazflyztmGeorgetown Behavioral HospitalProtein Auto test strip (U) [Mass/Vol]Ordered By: Elpidio Whipple on 54-72-8087Berphaz (U) [Mass/Vol]NegativeNegativeGeorgetown Behavioral HospitalProtein [Mass/volume] in Serum or PlasmaOrdered By: Charan Casey on 72-66-8315Bjbwhob [Mass/Vol]7.0 g/dL6.1-7.9[facility] Protein [Mass/volume] in UrineOrdered By: Elpidio Whipple on 19-38-4074Ardlbkg (U) [Mass/Vol]7 mg/dL0-9[facility] HospitalRBC Auto (Bld) [#/Vol] Ordered By: Charan Casey on 68-97-0877WOZ (Bld) [#/Vol]4.43 10*6/uL3.60-5.00 [facility] - Akronerum or plasma alanine aminotransferase measurement without P-5'-P (enzymatic activiOrdered By: Charan Casey on 08-13-2022 ALT No additional P-5'-P [Catalytic activity/Vol]12 U/B25-78LuiagmqkzSelect Medical Specialty Hospital - Akronerum or plasma albumin/globulin mass ratioOrdered By: Charan Casey on 04-22-8708Mgpbexa/Globulin [Mass ratio]1.3 {ratio}[facility] - Akronerum or plasma alkaline phosphatase measurement (enzymatic activity/volume)Ordered By: Charan Casey on 46-84-6035LZU [Catalytic activity/Vol] 79 U/C35-12EhzdlkboiSelect Medical Specialty Hospital - Akronerum or plasma anion gap determinationOrdered By: Charan Casey on 27-86-4688Dxyud gap [Moles/Vol]15.4 mmol/L6.0-15.0[facility] Akronerum or plasma aspartate aminotransferase measurement (enzymatic activity/volume)Ordered By: Charan Casey on 39-56-3798ECA [Catalytic activity/Vol]22 U/J09-11ZdiqakszcSelect Medical Specialty Hospital - Akronerum or plasma calcium measurement (mass/volume)Ordered By: Charan Casey on 67-78-9926Rhrpqlc [Mass/Vol]10.1 mg/dL8.2-10.2FFairfield Medical Center Serum or plasma chloride measurement (moles/volume)Ordered By: Charan Casey on 18-72-5992Iqufeqwp [Moles/Vol]102 mmol/P92-232OutlvndhuGeorgetown Behavioral Hospital Serum or plasma glucose measurement (mass/volume)Ordered By: Charan Casey on 05-85-4204Gltbtwl [Mass/Vol]114 mg/cP88-738NzzgmaoukGeorgetown Behavioral Hospital Comment on above:ADA recommended reference rangeRandom Glucose Reference Range is dependent on time and content of last meal. Glucose of more than 200 mg/dL in a nonstressed, ambulatory subject supports the diagnosisof Diabetes Mellitus. Serum or plasma high density lipoprotein (HDL) cholesterol measurementOrdered By: Charan Casey on 81-44-5871Eumyakwxzny in HDL [Mass/Vol]28 mg/wF01-70XnnonftqzGeorgetown Behavioral HospitalComment on above:HDL CHOL ATP-III CLASSIFICATION Cardiovascular RiskHDL > or equal to 60 mg/dL LOWHDL < 40 mg/dL HIGHSerum or plasma intact parathyroid hormone measurement (mass/volume)Ordered By: Elpidio Whipple on 56-21-5244Anfxxkjgin.intact [Mass/Vol]87.0 pg/oT02-16MlxmztgnpSelect Medical Specialty Hospital - Akronerum or plasma potassium measurement (moles/volume)Ordered By: Charan Casey on 48-06-4567Gflkxiwyz [Moles/Vol]4.9 mmol/L3.5-5.1FCleveland Clinicerum or plasma sodium measurement (moles/volume)Ordered By: Charan Casey on 75-57-1332Ximqrx [Moles/Vol]138 mmol/Z399-646PbhojseiiSelect Medical Specialty Hospital - Akronerum or plasma total bilirubin measurement (mass/volume)Ordered By: Charan Casey on 55-60-5362Bdhaipzos [Mass/Vol]0.4 mg/dL0.3-1.2FCleveland Clinicerum or plasma total carbon dioxide measurement (moles/volume)Ordered By: Charan Casey on 94-92-4243TX6 [Moles/Vol]25.5 mmol/L 22.0-30.0[facility] Akronerum or plasma total cholesterol/high density lipoprotein (HDL) cholesterol mass ratOrdered By: Charan Casey on 36-45-1585Xpjupuuzxwb.total/Cholesterol in HDL [Mass ratio]6.1 {ratio}<5.0 [facility] - Akronerum or plasma urea nitrogen measurement (mass/volume)Ordered By: Charan Casey on 16-91-5810Tigf nitrogen [Mass/Vol]45 mg/dL9-23[facility] - Akronerum or plasma uric acid measurement (mass/volume)Ordered By: Charan Casey on 54-22-9918Gxyxa [Mass/Vol]7.9 mg/dL 2.6-7.2FCleveland Clinicpecific gravity Auto test strip (U) [Rel density]Ordered By: Elpidio Whipple on 14-57-7653Oxuzcnfr gravity (U) [Rel density]1.0201.001-1.030[facility] Hospital - Akronquamous epithelial cells detection in urine sediment by light microscopyOrdered By: Elpidio Whipple on 06-25-5774Zkwgrzmxdp cells.squamous LM Ql (Urine sed)0-1 [HPF]0-2FFairfield Medical CenterTS DL <= 0.005 mIU/L QnOrdered By: Charan Casey on 47-91-6860CAS Qn1.91 m[IU]/L0.45-5.33[facility] Triglyceride [Mass/volume] in Serum or PlasmaOrdered By: Charan Casey on 95-64-7748Sanqlquyhhrf [Mass/Vol]207 mg/sD73-858QrdzzcgpyGeorgetown Behavioral HospitalComment on above:TRIG ATP III CLASSIFICATIONTRIG less than 150 mg/dL NormalTRIG 150-199 mg/dL Borderline highTRIG 200-500 mg/dL High TRIG greater than 500 mg/dL Very highStandard traceable to the Center for Disease Conrtrol and Prevention (CDC) test method.Urine bacteria detection by automated method Ordered By: Elpidio Whipple on 28-99-1109Lyesrqtz Auto Ql (U)None seenNone Seen [facility] HospitalUrine clarity by refractometry automatedOrdered By: Elpidio Whipple on 33-71-1203Xiftevr Refractometry automated (U)ClearClear [facility] HospitalUrine glucose measurement by automated test strip (mass/volume)Ordered By: Elpidio Whipple on 79-43-3773Mehgnqg Auto test strip (U) [Mass/Vol]Normal mg/dLNormalGeorgetown Behavioral HospitalUrine hemoglobin detection by automated test stripOrdered By: Elpidio Whipple on 44-66-9763Yykrttcktn Auto test strip Ql (U)NegativeNegativeGeorgetown Behavioral HospitalUrine leukocyte esterase detection by automated test stripOrdered By: Elpidio Whipple on 52-40-8492Dnnfdybph esterase Auto test strip Ql (U)Negative NegativeGeorgetown Behavioral HospitalUrine protein/creatinine ratioOrdered By: Elpidio Whipple on 73-90-7404Eymozgy/Creatinine (U) [Ratio]55 mg/g{Cre}0-200 [facility] HospitalUrobilinogen Auto test strip (U) [Mass/Vol] Ordered By: Elpidio Whipple on 46-81-0340Tecvgoirxmaf (U) [Mass/Vol]Normal mg/dL NormalGeorgetown Behavioral HospitalpH Auto test strip (U)Ordered By: Elpidio Whipple on 70-82-1100lF (U)5.0 [pH]5.0-9.0[facility] HospitalTobacco Screening.on 68-99-2128Lwvls depression screening assessmentNo-[facility] [address] DO Work Phone: Fall risk assessmenta) No falls within the last year MP-[facility] 250 DO Work Phone: Tobacco use status CPHSb) NoMP-[facility] [place] [address] DO Work Phone: Laboratory - Chemistry and Chemistry - challengeon 95-52-7437Dwsauppulvb [Mass/Vol]218\S\218above high ancugyxnq323-861LW-Jnbff [place] [facility]-[place] 250 DO Work Phone: Comment on above:Chol less than 200 mg/dl low risk Chol 201-239 mg/dl borderline risk Chol 240 mg/dl and greater high risk Cholesterol in LDL [Mass/Vol]145\S\145above high xwobusbxq2-956UJ-Ccfmt [place] [facility]-[place] 250 DO Work Phone: Comment on above:LDL ATP III CLASSIFICATION LDL less than 100 mg/dL Optimal LDL 100-129 mg/dL Near or above optimal LDL 130-159 mg/dL Borderline high LDL 160-189 mg/dL High LDL greater than 189 mg/dL Very high Laboratory - Microbiology and Antimicrobial susceptibilityon 03-25-2022 SARS-CoV-2 (COVID-19) RNA AHMET+probe Ql (Unsp spec)-[facility] 250 DO Work Phone: No Panel Informationon .2\S\40.2Normal.- [facility]-[place] 250 DO Work Phone: [phone]\S\9.1Sibrrz4.3-10.7MP-[facility]-[place] 250 DO Work Phone: [phone]\S\707Svxzri894-766JX-Gqljm [place] [facility] 250 DO Work Phone: [phone]\S\13.6Ioicad89.9-15.3MP-[facility] 250 DO Work Phone: [phone]\S\34.7Qhxrdy03.0-35.0MP-[facility]-[place] 250 DO Work Phone: [phone]\S\29.7Mfyjfg38.7-34.3MP-[facility] 250 DO Work Phone: [phone]\S\2.7Agdkxv9.8-7.7MP-[facility] 250 DO Work Phone: [phone]\S\0.0Lbwjtp9.0-0.45MP-[facility] 250 DO Work Phone: [phone]\S\0.6Normal.MP-[facility] 250 DO Work Phone: [phone]\S\2.9Normal.MP-[facility] 250 DO Work Phone: [phone]\S\7.1Normal.-[facility] 250 DO Work Phone: [phone]\S\49.2Normal.MP-[facility] 250 DO Work Phone: [phone]\S\0.2Xnsgmi1.0-0.2MP-[facility] 250 DO Work Phone: [phone] on above:PERFORMED BY:[facility] BRANDTRADHASERGEANT [place], [place] [phone] MEDICAL DIRECTORJE SHELLEY M.D.0.4\S\0.7Tctbpg3.0-0.8MP-[facility] 250 DO Work Phone: [phone]\S\2.5Lvvefb0.00-4.8MP-[facility] 250 DO Work Phone: [phone]\S\85.3Zknnap06-925IK-Eigwp [place] [facility] 250 DO Work Phone: [phone]\S\39.7Jdxypo49.0-46.4MP-[facility] 250 DO Work Phone: [phone]\S\13.7Ksunft25.8-15.4MP-[facility] 250 DO Work Phone: [phone]\S\4.44Uxiwli0.60-5.00MP-[facility] 250 DO Work Phone: [phone]\S\5.3Xqzwyt4.8-11.6MP-[facility] 250 DO Work Phone: [phone]\S\33.8Lmdoea42.1-36.5MP-[facility] 250 DO Work Phone: Comment on above:PERFORMED BY:[place] [address] CANALESUSKYSERGEANT [place], [place] [phone] MEDICAL DIRECTORJE SHELLEY M.D.1.0\S\1.0NormalMP-[facility] [address] DO Work Phone: Comment [...] patients with mechanical heart valves: 3 - 4.510.9\S\10.0Ixpldt8.0-12.9MP-[facility] 250 DO Work Phone: [phone]\S\26.0Srrvsz36.0-30.0MP-[facility] 250 DO Work Phone: [phone]\S\571Vfrkil30-403JR-Ynwme [place] [facility] 250 DO Work Phone: [phone]\S\4.7Koafkr2.5-5.1MP-[facility] 250 DO Work Phone: [phone]\S\008Xupguw966-419II-Vxeem [place] [facility] 250 DO Work Phone: [phone]\S\01Zzbdrm6-49AA-Sjysn [place] [facility] 250 DO Work Phone: [phone]\S\54NormalMP-[facility] [address] DO Work Phone: Comment on above:GFR estimated reference range: According to KDOQI guidelines, <60 ml/min/1.73m2 is sufficient todiagnose a patient with chronic kidney disease.45\S\45NormalMP-[facility] 250 DO Work Phone: [phone]\S\1.22above high threshold0.44-1.03MP-[facility] 250 DO Work Phone: [phone]\S\6.4Normal<5.0MP-[facility] 250 DO Work Phone: Comment on above:PERFORMED BY:[place] [address]TN[address] [place], [place] [phone] MEDICAL DIRECTORJE SHELLEY M.D.39\S\39NormalMP-[facility] 250 DO Work Phone: [phone]\S\197above high wrdbygtsq67-195ZZ-Wcjjx [place] [facility] 250 DO Work Phone: Comment on above:TRIG ATP III CLASSIFICATION TRIG less than 150 mg/dL Normal TRIG 150-199 mg/dL Borderline high NXLR906-033 mg/dL High TRIG greater than 500 mg/dL Very high Standard traceable to the Center for Disease Conrtrol and Prevention (CDC) test method.34\S\34below low threshold [id number]-Ysh[facility] 250 DO Work Phone: Comment on above:HDL CHOL ATP-III CLASSIFICATION Cardiovascular Risk HDL > or equal to 60 mg/dL LOW HDL < 40 mg/dL HIGHNegative NormalNegativeMP-[facility] 250 DO Work Phone: Comment on above:This is a duplicate Ashley SARS Antigen (PRISCILA) result to be used for statistical tracking purpose only.PERFORMED BY:[facility]1111 RIVERA CANALESUSK[place]ERGEANT [place], [place] [id number] MEDICAL DIRECTORJE SHELLEY M.D.CT Angio Coronary Arteries with Heart Flowon [id number] Angio Coronary Arteries with Heart Flow NormalMP-[facility]-[place] 250 DO Work Phone: th CTA CORONARY ART WITH HEARTFLOW IF SCORE >30%.on [id number] CTA CORONARY ART WITH HEARTFLOW IF SCORE [...] R07.9: Chest pain. COMPARISON: None. ACCESSION NUMBER(S): [id number] ORDERING CLINICIAN: PARK TORRES TECHNIQUE: Using multi-detector [...] Intact. AORTIC VALVE: The (more content not included)...NormalKeefe Memorial HospitalTobacco Screening.on [id number] depression screening assessmentNo-[facility]-[place] 250 DO Work Phone: Fall risk assessmenta) No falls within the last year -[facility] [employer] 250 DO Work Phone: Tobacco use status CPHSb) NoM-[facility]- [employer] 250 DO Work Phone: SURGICAL PATHOLOGYon [id number] PATHOLOGY Specimen #: [id number] Physician: REUBEN CRAVEN M.D. FINAL DIAGNOSIS1. 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 Skin,left upper arm, shave biopsy ([id number]; 07/20/2018) - Intradermal nevus, neurotized (see comment).AF/CE/dss 07/26/2018 COMMENTMany thanks for involving us in this case of two melanocytic lesions fromthe right posterior shoulder and left upper arm of a 57-year-old woman. 1. Histologic sections demonstrate a junctional melanocytic proliferationwith bridging of adjacent rete ridges, papillary dermalfibrosis andunderlying sparse lymphocytic inflammation and melanoderma. An immunohistochemical stain for MART-1 and S100 [facility]. These stains highlight a well-nested,symmetric junctional melanocytic proliferation, consistent with the abovediagnosis.2. Histologic sections demonstrate an intradermal melanocytic proliferationthat matures and disperses to the base. The lesional cells have a spindled,neural appearance with descent into the dermis. Atypia and lymphoidaggregates are not identified. Immunohistochemical stains performed at the [facility] for MART-1and S100 are reviewed. These stains highlight the spindled cells within thedermis. Overall, these histologic and immunohistochemical features areconsistent with the diagnosis ofa neurotized intradermal nevus.Thank you for sending this case in consultation. Please call theDermatopathology Consultation Service at [phone] with questions or ifadditional follow-up information becomes available regarding this patient.This case was reviewed in conjunction with the Dermatopathology Fellow, Dr.Carly Marija MD.Donald Zavaleta M.D. PhD(Electronic Signature) SPECIMEN SUBMITTEDA: 11 SLIDES ([id number]) CLINICAL DATANone provided. of Report: 07/26/2018Date of Procedure: 07/23/2018Dateof Receipt: 07/23/2018Submitted by: REUBEN CRAVEN M.D.Location: G26Aklwiuhqax interpretation performed at [facility], [address] [place] [address].Normal[facility] Reference LabComment on above:Performed By: #### S ####See report for performing lab information. Vital Signs Date TimeVital SignValuePerforming AtzxzljukUkbphugj78-86-2309 08:040Body vqgbuu504.6 cmAlllucia Munroe DO Work Phone: [facility] Paydokdvxz98-03-7541 08:040Body temperature 97.5 [degF]Shaina Munroe DO Work Phone: [facility] Zhgzfvfpco53-01-3188 08:13040Diastolic blood ucgfoypu03 mm[Hg]Shaina Petznick DO Work Phone: noH[facility] HospitalXexdkyresh86-96-4517 08:13-0400Heart rate65 /min Shaina Petznick DO Work Phone: noHannibal [facility] HospitalDnsqrsdbsk55-54-4122 08:13-9373LlN1% (BldA) [Mass fraction]98 %Shaina Petznick DO Work Phone: noH[facility]ibal [facility] HospitalXlhmatqrrn58-80-8948 08:13-0400Systolic blood mm[Hg]Shaina Petznick DO Work Phone: noHannibal Regional HospitalNiekkzifsh44-77-9562 08:20-0400Body temperature 97.8 [degF]Charan Casey DO Work Phone: [phone]08-13-2025 08:20-0400 Diastolic blood rxfdmeiv31 mm[Hg]Charan Casey DO Work Phone: [facility]08-13-2025 08:20-0400 Heart rate70 /minCharan Casey DO Work Phone: [facility]08-13-2025 08:20-0400 Respiratory rate16 /minCharan Casey DO Work Phone: [facility]08-13-2025 08:20-0400 SaO2% (BldA) [Mass fraction]97 %Charan Casey DO Work Phone: [facility]08-13-2025 08:20-0400 Systolic blood bylgpjzn344 mm[Hg]Charan Casey DO Work Phone: [facility]06-16-2025 10:29-0400 Body ndaebv871.6 cmAlllucia Petfelipeick DO Work Phone: noH[facility]ibal [facility] HospitalMrvdrobadw81-39-1636 10:29-0400Body mass index (BMI) [Ratio]35.86 kg/w5Mmbuudr Petznick DO Work Phone: noHannibal Regional HospitalUoasilmjya55-27-2266 10:29-0400Body temperature 97.2 [degF]Shaina Munroe DO Work Phone: [facility] HealthcareTblzhqzidi81-82-5292 10:29-0400Body cadedp825.79 kgShaina Munroe DO Work Phone: 1(951)[facility]-4636[facility] HealthcareEnypugvpto69-04-8097 10:29-0400Diastolic blood msqiycbd44 mm[Hg]Shaina Munroe DO Work Phone: 1(636)438-[address] [place], [place] [address]Dakaejoewl82-01-6886 10:29-0400Heart rate67 /min Shaina Munroe DO Work Phone: 1(025)[facility] [place], [place] [address]Xjtjlrrthq04-98-7391 10:29-1204BaZ9% (BldA) [Mass fraction]98 %Shaina Munroe DO Work Phone: 1(865)[facility]-8957[facility] HealthcareTvtrrkecwd03-11-5419 10:29-0400Systolic blood xjplwdej489 mm[Hg]Shaina Munroe DO Work Phone: 1(349)544-[address] [place], [place] [address]Pofrmahdid34-46-0630 08:09-0400Body .18 cmCharan Casey DO Work Phone: [phone])[address]04-07-2025 08:09-0400 Body mass index (BMI) [Ratio]35.4 kg/v4KmyywCharan Casey DO Work Phone: 1(104)[address]04-07-2025 08:09-0400 Body yahqwv583.51 kgCharan Casey DO Work Phone: 1([phone])708-85[facility]04-07-2025 08:09-0400 Respiratory rate16 /minCharan Casey DO Work Phone: 1([phone]04-07-2025 08:09-0400 SaO2% (BldA) [Mass fraction]98 %Charan Casey DO Work Phone: [phone]03-20-2025 09:35-0400 Body ohnbfq213.18 cmCharan Casey DO Work Phone: 1(256)270-[address] [place], [place] 6609403-20-2025 09:35-0400 Body mass index (BMI) [Ratio]36.5 kg/d7NvepmCharan Masseys DO Work Phone: 1(681)[address]03-20-2025 09:35-0400 Body xroxqh069.68 kgCharan Masseys DO Work Phone: 1(523)3-[address] [place], [place] 6609402-10-2025 10:01-0500 Body .18 cmCharan Masseys DO Work Phone: 1(515)3-[address] [place], [place] 6609402-10-2025 10:01-0500 Body mass index (BMI) [Ratio]36.5 kg/b2ZhsthCharan Masseys DO Work Phone: 1(097)[address] [place], [place] 4203802-10-2025 10:01-0500 Body ooemdv214.68 kgCharan Masseys DO Work Phone: 1(635)[address] [place], [place] 4203802-10-2025 10:01-0500 Diastolic blood sclrozlb94 mm[Hg]Charan Masseys DO Work Phone: 1(547)[address] [place], [place] 4203802-10-2025 10:01-0500 Heart rate69 /minCharan Masseys DO Work Phone: 1(209)[address] [place], [place] 4203802-10-2025 10:01-0500 Respiratory rate16 /minCharan Masseys DO Work Phone: 1(896)[address] [place], [place] 4203802-10-2025 10:01-0500 SaO2% (BldA) [Mass fraction]98 %Charan Masseys DO Work Phone: 1(790)[address] [place], [place] 4203802-10-2025 10:01-0500 Systolic blood iounrkza337 mm[Hg]Charan Masseys DO Work Phone: 1(821)[address] [place], [place] 4203801-10-2025 10:39-0500 Body bjfihh751.18 cmYeisonan Brysons DO Work Phone: [phone])[address] [place], [place] 4203801-10-2025 10:39-0500 Body mass index (BMI) [Ratio]36.1 kg/f5Iseuy Brysons DO Work Phone: [facility]01-10-2025 10:39-0500 Body cyplbflohmk20.4 [degF]Charan Masseys DO Work Phone: [facility]01-10-2025 10:39-0500 Body drtwho077.77 kgCharan Masseys DO Work Phone: [facility]01-10-2025 10:39-0500 Diastolic blood ththibjn76 mm[Hg]Charanheather Masseys DO Work Phone: [facility]01-10-2025 10:39-0500 Heart rate78 /minYeisonan Brysons DO Work Phone: [facility]01-10-2025 10:39-0500 Respiratory rate16 /minYeisonan Kuns DO Work Phone: [address] [place], [place] 6105701-10-2025 10:39-0500 SaO2% (BldA) [Mass fraction]97 %Charan Masseys DO Work Phone: [facility]01-10-2025 10:39-0500 Systolic blood qucynqdh305 mm[Hg]Charan Masseys DO Work Phone: [facility]12-03-2024 09:30-0500 Diastolic blood ifotrhrb33 mm[Hg]Charan Masseys DO Work Phone: [facility]12-03-2024 09:30-0500 Heart rate65 /minYeisonan Brysons DO Work Phone: [facility]12-03-2024 09:30-0500 Respiratory rate16 /minYeisonan Kuns DO Work Phone: [facility]12-03-2024 09:30-0500 SaO2% (BldA) [Mass fraction]99 %Charan Brysons DO Work Phone: [facility]12-03-2024 09:30-0500 Systolic blood ajylxudz513 mm[Hg]Charan Casey DO Work Phone: [facility]12-03-2024 08:48-0500 Inhaled oxygen flow rate3 L/minCharan Casey DO Work Phone: [facility]12-03-2024 07:38-0500 Body yhnfsm264.18 cmCharan Casey DO Work Phone: [facility]12-03-2024 07:38-0500 Body zqjpuc291.86 kgCharan Casey DO Work Phone: [facility]11-20-2024 08:13-0500 Body yeyjga877.88 kgCharan Casey DO Work Phone: [phone]11-18-2024 13:12-0500 Body .6 cmAlllucia Petznarnaldo DO Work Phone: 1(710)084-[address] [place], [place] [address]Bvycyunwfj96-93-2005 13:12-0500Body mass index (BMI) [Ratio]39.06 kg/h6Pgtyolt Petznick DO Work Phone: [facility] HealthcareGyatzdmhvj56-28-1637 13:12-0500Body temperature 97.3 [degF]Shaina Petznick DO Work Phone: 1(539)970-[address] [place], [place] [address]Fjuwjpvhql24-65-1169 13:12-0500Body vgzufu434.77 kgAllison Petznick DO Work Phone: 5(364)822-[address] [place], [place] [address]Mwjytalbqx86-80-3057 13:12-0500Diastolic blood ukdblscm28 mm[Hg]Shaina Petznick DO Work Phone: [facility] HealthcareAjflcoqpmf29-20-5394 13:12-0500Heart rate78 /min Shaina Petznick DO Work Phone: [place] [address]Vorojtybry60-11-5307 13:12-3862KpP6% (BldA) [Mass fraction]96 %Shaina Petznick DO Work Phone: [facility] HealthcareHmeouysekt14-52-9618 13:12-0500Systolic blood wclxuwae388 mm[Hg]Shaina Petznick DO Work Phone: [facility] HealthcareBddsjsfhzh10-12-1500 10:28-0400Diastolic blood bytigdva96 mm[Hg]DO Charan Casey Work Phone: [facility]10-22-2024 10:28-0400 Heart rate68 /Dean Casey Work Phone: [facility]10-22-2024 10:28-0400 Respiratory rate16 /Dean Casey Work Phone: [facility]10-22-2024 10:28-0400 SaO2% (BldA) [Mass fraction]95 %DO Charan Casey Work Phone: [facility]10-22-2024 10:28-0400 Systolic blood bqwnipoj432 mm[Hg]DO Charan Casey Work Phone: [address] [place], [place] 610[address]10-22-2024 09:50-0400 Inhaled oxygen flow rate3 L/Dean Casey Work Phone: [facility]10-22-2024 08:38-0400 Body lgqlja025.18 cmDO Charan Casey Work Phone: [facility]10-22-2024 08:38-0400 Body bxawgl666.95 kgDO Charan Casey Work Phone: [facility]09-26-2024 08:35-0400 Body .2 cmRosalinda Torres MD Work Phone: [facility]09-26-2024 08:35-0400 Body mass index (BMI) [Ratio]37.75 kg/z9VkswskRosalinda Torres MD Work Phone: [facility]09-26-2024 08:35-0400 Body .32 kgRosalinda Torres MD Work Phone: [facility]09-26-2024 08:35-0400 Diastolic blood tbjtvjki69 mm[Hg]Rosalinda Torres MD Work Phone: [facility]09-26-2024 08:35-0400 Heart rate80 /Aleida Torres MD Work Phone: [facility]09-26-2024 08:35-0400 Systolic blood nowcjsfj467 mm[Hg]Rosalinda Torres MD Work Phone: [facility]07-10-2024 15:44-0400 Body otnxrx991.18 cmDO Charan Casey Work Phone: [facility]07-10-2024 15:44-0400 Body mass index (BMI) [Ratio]37 kg/m2DO Charan Casey Work Phone: [facility]07-10-2024 15:44-0400 Body lrffxu361.5 kgDO Charan Casey Work Phone: [facility]07-10-2024 15:44-0400 Diastolic blood emeskwie96 mm[Hg]DO Charan Casey Work Phone: [facility]07-10-2024 15:44-0400 Heart rate95 /Dean Casey Work Phone: [facility]07-10-2024 15:44-0400 SaO2% (BldA) [Mass fraction]96 %DO Charan Casey Work Phone: [facility]07-10-2024 15:44-0400 Systolic blood emcbkzlq575 mm[Hg]DO Charan Casey Work Phone: [facility]07-02-2024 11:30-0400 Diastolic blood pedsrwpr59 mm[Hg]DO Charan Casey Work Phone: [facility]07-02-2024 11:30-0400 Heart rate68 /minDO Charan Casey Work Phone: [address] [place], [place] 6105707-02-2024 11:30-0400 Respiratory rate16 /GeovanyO Charan Casey Work Phone: [facility]07-02-2024 11:30-0400 SaO2% (BldA) [Mass fraction]98 %DO Charan Casey Work Phone: [facility]07-02-2024 11:30-0400 Systolic blood jhkwpats579 mm[Hg]DO Charan Casey Work Phone: [facility]07-02-2024 10:53-0400 Inhaled oxygen flow rate3 L/Dean Casey Work Phone: [address] [place], [place] 6105707-02-2024 10:09-0400 Body vxxfep153.18 cmDO Charan Casey Work Phone: 4(770)[address]07-02-2024 10:09-0400 Body jtnwof387.86 kgDO Charan Casey Work Phone: [facility]04-02-2024 09:31-0400 Body delhoj336.18 cmDO Charan Casey Work Phone: [facility]04-02-2024 09:31-0400 Body mass index (BMI) [Ratio]37.4 kg/m2DO Charan Casey Work Phone: [facility]04-02-2024 09:31-0400 Body kglpwcwiyda63.8 [degF]DO Charan Casey Work Phone: [facility]04-02-2024 09:31-0400 Body qwaxgv648.4 kgDO Charan Casey Work Phone: [facility]04-02-2024 09:31-0400 Diastolic blood giwbemah43 mm[Hg]DO Charan Casey Work Phone: [facility]04-02-2024 09:31-0400 Heart rate88 /Dean Casey Work Phone: [facility]04-02-2024 09:31-0400 Respiratory rate16 /Dean Casey Work Phone: [facility]04-02-2024 09:31-0400 SaO2% (BldA) [Mass fraction]98 %DO Charan Casey Work Phone: [facility]04-02-2024 09:31-0400 Systolic blood kiyldein145 mm[Hg]DO Charan Casey Work Phone: [facility]03-25-2024 14:26-0400 Body mylmxz169.2 cmRosalinda Torres MD Work Phone: 0(752)146-[address] [place], [place] 5355603-25-2024 14:26-0400 Body mass index (BMI) [Ratio]37.12 kg/a9XhozqqRosalinda Torres MD Work Phone: 8(469)886-[address] [place], [place] 5355603-25-2024 14:26-0400 Body jlendc423.5 kgRosalinda Torres MD Work Phone: 3(863)888-[address] [place], [place] 5355603-25-2024 14:26-0400 Diastolic blood gkecjogw51 mm[Hg]Rosalinda Torres MD Work Phone: 1(275)079-[address] [place], [place] 5355603-25-2024 14:26-0400 Heart rate84 /minRosalinda Torres MD Work Phone: 3(878)223-[address] [place], [place] 5355603-25-2024 14:26-0400 Systolic blood mesrlxyh380 mm[Hg]Rosalinda Torres MD Work Phone: 2(621)356-[address] [place], [place] 5355601-31-2024 13:00-0500 Body cgyrka306.18 cmCharan Casey Other [facility]01-31-2024 13:00-0500 Body mass index (BMI) [Ratio]37.59 kg/o9RfzcgCharan Casey Other [facility] Other 01-31-2024 13:00-0500Body zbqolyzoakp38.3 [degF]Charan Casey Other [facility] Other 01-31-2024 13:00-0500Body .86 kgCharan Casey Other [facility]01-31-2024 13:00-0500 Diastolic blood aydjuluj91 mm[Hg]Charan Casey Other [facility]01-31-2024 13:00-0500 Respiratory rate18 /minCharan Casey Other [facility] Other 01-31-2024 13:00-6083RmG6% (BldA) [Mass fraction]96 % Charan Casey Other [facility] Other 01-31-2024 13:00-0500Systolic blood cgsrykjj615 mm[Hg] Charan Casey Other [facility]11-22-2023 12:45-0500 Body bmmibx987.18 cmThommarquez Bellamy Other [facility] Other 11-22-2023 12:45-0500Body mass index (BMI) [Ratio] 37.43 kg/q4Dutrgo Josesito Other [facility] Other 11-22-2023 12:45-0500Body okdraccnkgx12.6 [degF]Blas Josesito Other [facility] Other 11-22-2023 12:45-0500Body urgspa935.41 kgThomas Josesito Other [facility] Other 11-22-2023 12:45-0500Diastolic blood jsyyetfb26 mm[Hg] Blas Bellamy Other [employer] [facility] Other 11-22-2023 12:45-0500Respiratory rate18 /minThomas Josesito Other [facility] [facility] Other 11-22-2023 12:45-0462YrE3% (BldA) [Mass fraction]96 % Blas Bellamy Other [facility] Other 11-22-2023 12:45-0500Systolic blood byvtopdq776 mm[Hg] Blas Bellamy Other [employer] [facility] Other 11-07-2023 09:04-0500Diastolic blood oisdxuya89 mm[Hg] DO Charan Casey Work Phone: [facility]11-07-2023 09:04-0500 Heart rate76 /Dean Casey Work Phone: [facility]11-07-2023 09:04-0500 Respiratory rate16 /Dean Casey Work Phone: [facility]11-07-2023 09:04-0500 SaO2% (BldA) [Mass fraction]96 %DO Charan Casey Work Phone: [facility]11-07-2023 09:04-0500 Systolic blood mm[Hg]DO Charan Casey Work Phone: [facility]11-07-2023 07:01-0500 Body odjswx394.18 cmDO Charan Casey Work Phone: [facility]11-07-2023 07:01-0500 Body lsyzca826.59 kgDO Charan Casey Work Phone: [facility]10-17-2023 10:20-0400 Body tvaeyv933.18 cmAbdul Sole Other [facility] Other 10-17-2023 10:20-0400Body mass index (BMI) [Ratio] 37.46 kg/m9Scfks Sole Other [facility] Other 10-17-2023 10:20-0400Body eiuskccfliy69.2 [degF]Elpidio Sole Other [facility] Other 10-17-2023 10:20-0400Body uklyyn413.[address] [facility] Other 10-17-2023 10:20-0400Diastolic blood pknpvsih28 mm[Hg] Elpidio Sole Other [facility] Other 10-17-2023 10:20-0400Respiratory rate18 /minAbdul Sole Other [facility] Other 10-17-2023 10:20-0370GcG1% (BldA) [Mass fraction]99 % Elpidio Sole Other [employer] [facility] Other 10-17-2023 10:20-0400Systolic blood mm[Hg] Elpidio Sole Other [facility] [facility] Other 10-10-2023 09:00-0400Diastolic blood wcwdangu58 mm[Hg] DO Charan Casey Work Phone: [facility]10-10-2023 09:00-0400 Heart rate69 /Dean Casey Work Phone: [facility]10-10-2023 09:00-0400 Respiratory rate16 /Dean Casey Work Phone: [facility]10-10-2023 09:00-0400 SaO2% (BldA) [Mass fraction]96 %DO Charan Casey Work Phone: [facility]10-10-2023 09:00-0400 Systolic blood donlzjrq345 mm[Hg]DO Charan Casey Work Phone: [address] [place], [place] 6105710-10-2023 08:17-0400 Inhaled oxygen flow rate3 L/Dean Casey Work Phone: 1(285)[address]10-10-2023 07:21-0400 Body uexisn595.18 cmDO Charan Casey Work Phone: [facility]10-10-2023 07:21-0400 Body ashagb414.86 kgDO Charan Casey Work Phone: [facility]09-18-2023 09:30-0400 Body dykfld026.18 cmThomas Felter Other [facility] Other 09-18-2023 09:30-0400Body mass index (BMI) [Ratio] 38.06 kg/e3Qoqnwj Felter Other [facility] Other 09-18-2023 09:30-0400Body bxwinl477.22 kgThomas Felter Other [employer] Other 09-12-2023 09:20-0400Body kyvhnw193.18 cmDale Chatterjee Other [employer] [facility] Other 09-12-2023 09:20-0400Body mass index (BMI) [Ratio] 38.06 kg/m2Thierno Chatterjee Other [facility] Other 09-12-2023 09:20-0400Body dzumvg239.22 kgThierno Chatterjee Other [facility] Other 09-12-2023 09:20-0400Diastolic blood dxtxbhfy46 mm[Hg] Thierno Chatterjee Other [facility] Other 09-12-2023 09:20-0400Systolic blood ewhluyxg508 mm[Hg] Thierno Chatterjee Other [facility] Other 09-06-2023 08:15-0400Body wjtias428.18 cmCharan Casey Other [facility] Other 09-06-2023 08:15-0400Body mass index (BMI) [Ratio] 38.21 kg/s5GvzoeCharan Casey Other [facility] Other 09-06-2023 08:15-0400Body krenqj010.68 kgCharan Casey Other [facility] Other 09-06-2023 08:15-0400Diastolic blood uabltzpp10 mm[Hg] Charan Casey Other [facility] Other 09-06-2023 08:15-0400Respiratory rate18 /minCharan Casey Other [facility] Other 09-06-2023 08:15-9354KdY7% (BldA) [Mass fraction]95 % Charan Casey Other [facility] Other 09-06-2023 08:15-0400Systolic blood jmaebcpx301 mm[Hg] Charan Casey Other [facility] Other 06-20-2023 12:30-0400Body oylflh561.18 cmCharan Casey Other [facility] Other 06-20-2023 12:30-0400Diastolic blood oremcnbz48 mm[Hg] Charan Casey Other [facility] Other 06-20-2023 12:30-0400Respiratory rate18 /minCharan Casey Other [facility] Other 06-20-2023 12:30-2022ZlH8% (BldA) [Mass fraction]97 % Charan Casey Other [facility] Other 06-20-2023 12:30-0400Systolic blood veeepznv909 mm[Hg] Charan Casey Other [facility] Other 06-01-2023 10:17-0400Body .18 cmCharan Casey Work Phone: 1(180) 195-2853689-2124IC-Ubwox [facility] 250 DO Work Phone: 1(881) 907-337706-01-2023 10:17-0400Body mass index (BMI) [Ratio] Medical Reason Not DoneCharan Casey Work Phone: [phone]-Gjgwi [facility] 250 DO Work Phone: 1(323) 795-524106-01-2023 10:17-0400Diastolic blood zxwqdnhy61 mm[Hg] Charan Casey Work Phone: [phone]-Pbvxj [facility] 250 DO Work Phone: 1(351) 365-520406-01-2023 10:17-0400Heart rate72 /minCharan Casey Work Phone: [phone]-Odsyg [place] [employer] 250 DO Work Phone: 1(416) 300-572906-01-2023 10:17-0400Systolic blood pacafjnz574 mm[Hg] Charan Casey Work Phone: [phone]-Cspxx [place] [employer] 250 DO Work Phone: 1(638) 500-370605-02-2023 15:30-0400Body sdjiyc308.18 cmCharan Casey Other [employer] Other 05-02-2023 15:30-0400Diastolic blood mpnospbb13 mm[Hg] Charan Casey Other [employer] Other 05-02-2023 15:30-0400Respiratory rate18 /minCharan Casey Other [employer] Other 05-02-2023 15:30-0430OzH2% (BldA) [Mass fraction]98 % Charan Casey Other [facility] Other 05-02-2023 15:30-0400Systolic blood zjtwegbn824 mm[Hg] Charan Casey Other [facility] Other 04-11-2023 15:40-0400Body ibmcgf798.18 cmAbdul Sole Other [employer] Other 04-11-2023 15:40-0400Diastolic blood obtjkyck51 mm[Hg] Elpidio Sole Other [facility] Other 04-11-2023 15:40-0400Respiratory rate16 /minAbdul Sole Other [employer] Other 04-11-2023 15:40-1926XlW1% (BldA) [Mass fraction]99 % Elpidio Sole Other [employer] Other 04-11-2023 15:40-0400Systolic blood iknzoupq279 mm[Hg] Elpidio Sole Other [employer] Other 04-05-2023 15:00-0400Body hzblci096.18 cmChrjose Coco Other [facility] Other 04-05-2023 15:00-0400Body mass index (BMI) [Ratio] 37.43 kg/h5Nnvnlqrvhgo Coco Other [facility] Other 04-05-2023 15:00-0400Body tuxshp645.41 kgChristopher Coco Other [facility] Other 04-05-2023 15:00-0400Diastolic blood gvzaisbr10 mm[Hg] Williamer Coco Other [facility] Other 04-05-2023 15:00-9297LcM6% (BldA) [Mass fraction]98 % Christopher Coco Other [facility] Other 04-05-2023 15:00-0400Systolic blood gjeukaer660 mm[Hg] Christopher Coco Other [facility] Other 10-26-2022 16:00-0400Body ezjtdi042.18 cmAbdul Sole Other [facility] Other 10-26-2022 16:00-0400Body mass index (BMI) [Ratio] 37.37 kg/h7Ynbpm Sole Other [facility] Other 10-26-2022 16:00-0400Body iwbuebmagei48.4 [degF]Elpidio Sole Other [facility] Other 10-26-2022 16:00-0400Body irokjf805.23 kgAbdul Sole Other [facility] Other 10-26-2022 16:00-0400Diastolic blood dkirngmc07 mm[Hg] Elpidio Sole Other [facility] Other 10-26-2022 16:00-0400Respiratory rate16 /minAbdul Sole Other [facility] Other 10-26-2022 16:00-0758VdT8% (BldA) [Mass fraction]98 % Elpidio Sole Other [facility] Other 10-26-2022 16:00-0400Systolic blood jawaiiag590 mm[Hg] Elpidio Sole Other [facility] Other 10-04-2022 14:00-0400Body agcmdm939.18 cmCharan Casey Other [employer] Other 10-04-2022 14:00-0400Body mass index (BMI) [Ratio]37.9 kg/d0Ctnfw Kuns Other [employer] [facility] Other 10-04-2022 14:00-0400Body eccukh972.77 kgCharan Casey Other [employer] [facility] Other 10-04-2022 14:00-0400Diastolic blood upeogovy92 mm[Hg] Charan Casey [facility] Other 10-04-2022 14:00-0400Respiratory rate16 /minYeisonheather Casey Other [place] [facility] Other 10-04-2022 14:00-8303AxT9% (BldA) [Mass fraction]97 % Charan aCsey Other [place] [facility] Other 10-04-2022 14:00-0400Systolic blood zvifjiwt606 mm[Hg] Charan Casey Other [facility] Other 08-28-2022 19:56-0400Body qebxeq634.18 cmDO Charan Casey Work Phone: [facility]08-28-2022 19:56-0400 Body fritrakepwx73.1 [degF]DO Charan Casey Work Phone: [facility]08-28-2022 19:56-0400 Body iycsiw456.55 kgDO Charanheather Masseybryn Work Phone: [facility]08-28-2022 19:56-0400 Diastolic blood aepnvdwy65 mm[Hg]DO Charanheather Masseybryn Work Phone: [facility]08-28-2022 19:56-0400 Heart rate89 /minDO Charan Casey Work Phone: [facility]08-28-2022 19:56-0400 Respiratory rate20 /minDO Charan Casey Work Phone: [facility]08-28-2022 19:56-0400 SaO2% (BldA) [Mass fraction]98 %DO Charan Casey Work Phone: [facility]08-28-2022 19:56-0400 Systolic blood hbuaiqye953 mm[Hg]DO Charan Casey Work Phone: [facility]06-09-2022 08:51-0400 Body nkhanq612.18 cmCharan Casey Work Phone: 1(842) [phone]-Vzlhn [facility] 250 DO Work Phone: 1(384) 534-784506-09-2022 08:51-0400Body mass index (BMI) [Ratio] 38.06 kg/u9Ltoabheather Casey Work Phone: 1(816) [phone][facility] [facility] DO Work Phone: 1(675) [phone] 08:51-0400Body surface area Derived from formula2.2 e7Ooiumheather Casey Work Phone: 1(992) [phone]-[facility] 250 DO Work Phone: 1(539) [phone] 08:51-0400Body tsgarh638.22 kgCharan Dani Casey Work Phone: 1(730) [phone]-Fuckn [facility] 250 DO Work Phone: 1(963) 525-913406-09-2022 08:51-0400Diastolic blood qahwlfpq86 mm[Hg] Charan Dani Casey Work Phone: 1(138) [phone]-Tvsqf [facility] 250 DO Work Phone: 1(974) [phone] 08:51-0400Heart rate72 /minCharan Louise Jacinto Work Phone: 1(580) [phone]-Kigbq [facility] 250 DO Work Phone: 1(336) 515-398706-09-2022 08:51-0400Systolic blood fiawqmuo172 mm[Hg] Charan Louise Jacinto Work Phone: 1(573) [phone]-[facility]bzcm[facility] 250 DO Work Phone: 1(779) 128-512206-01-2022 17:00-0400Body hbyfis236.18 cmChristcalderon Coco Other [employer] Other 06-01-2022 17:00-0400Body mass index (BMI) [Ratio] 38.52 kg/q9Khaccwgqreu Coco Other [employer] Other 06-01-2022 17:00-0400Body adiqfftuvuk49.1 [degF] Christbryoner Coco Other [facility] Other 06-01-2022 17:00-0400Body nyfoyk288.59 kgChristopher Coco Other [facility] Other 06-01-2022 17:00-0400Diastolic blood guauxyjc94 mm[Hg] Christbryoner Coco Other [facility] Other 06-01-2022 17:00-9777ChZ3% (BldA) [Mass fraction]97 % Christopher Coco Other [facility] Other 06-01-2022 17:00-0400Systolic blood otbwvxbj012 mm[Hg] Christbryoner Coco Other [facility] Other 05-16-2022 11:30-0400Body wonpuk479.18 cmCharan Casey Other [facility] Other 05-16-2022 11:30-0400Body mass index (BMI) [Ratio] 38.52 kg/y5RhrbgCharan Casey Other [facility] Other 05-16-2022 11:30-0400Body nxtfoq218.59 kgCharan Casey Other [facility] Other 05-16-2022 11:30-0400Diastolic blood dywtjozj29 mm[Hg] Charan Casey Other [facility] Other 05-16-2022 11:30-0400Respiratory rate16 /minCharan Casey Other [facility] Other 05-16-2022 11:30-8072TiF7% (BldA) [Mass fraction]99 % Charan Casey Other [facility] Other 05-16-2022 11:30-0400Systolic blood mm[Hg] Charan Casey Other [facility] Other 03-24-2022 17:00-0400Body mass index (BMI) [Ratio] 38.56 kg/v2Kjjec Sole Other [facility] Other 03-24-2022 17:00-0400Body ynrdvedaidg78.2 [degF]Elpidio Sole Other [facility] Other 03-24-2022 17:00-0400Body sbxude174.68 kgAbdul Sole Other [facility] Other 03-24-2022 17:00-0400Diastolic blood hladgazp18 mm[Hg] Elpidio Sole [facility] Other 03-24-2022 17:00-0400Respiratory rate18 /minAbdul Sole Other [facility] Other 03-24-2022 17:00-9787EkM5% (BldA) [Mass fraction]98 % Elpidio Sole Other [facility] Other 03-24-2022 17:00-0400Systolic blood ddajhniq689 mm[Hg] Elpidio Sole Other [facility] Other 03-24-2022 12:28-0400Body aizqbq029.18 cmCharan Dani Casey Work Phone: [phone]-Cbjdo [facility] 250 DO Work Phone: 1(879) 492-537903-24-2022 12:28-0400Body mass index (BMI) [Ratio] 38.37 kg/c3Ofleo Dani Masseybryn Work Phone: [phone]-Xkars [facility] 250 DO Work Phone: 1(188) [phone] 12:28-0400Body surface area Derived from formula2.2 u0Piqnr Dani Casey Work Phone: [phone]-Vagnp [facility] 250 DO Work Phone: 1(465) [phone] 12:28-0400Body maoggg373.13 kgCharan Casey Work Phone: [phone]-Jgemp [facility] 250 DO Work Phone: 1(552) 564-126403-24-2022 12:28-0400Diastolic blood ezqnscth42 mm[Hg] Charan Casey Work Phone: mp149-6955MV-Tvwtw [facility] 250 DO Work Phone: 1(466) 487-308703-24-2022 12:28-0400Heart rate72 /minCharan Casey Work Phone: [phone]-Snnpl [facility] 250 DO Work Phone: 1(237) 503-912003-24-2022 12:28-0400Systolic blood kohrxiij163 mm[Hg] Charan Casey Work Phone: [phone]-Yhits [facility] 250 DO Work Phone: 1(546) 184-606003-11-2022 09:45-0500Body .18 cmCharan Casey Other [facility] Other 03-11-2022 09:45-0500Body mass index (BMI) [Ratio] 38.27 kg/s5JonxqCharan Casey Other [facility] Other 03-11-2022 09:45-0500Body lhlukz256.86 kgCharan Casey Other [facility] Other 03-11-2022 09:45-0500Diastolic blood eclwrfcs49 mm[Hg] Charan Casey Other [facility] Other 03-11-2022 09:45-0500Respiratory rate18 /minCharan Casey Other [facility] Other 03-11-2022 09:45-6979XoP9% (BldA) [Mass fraction]95 % Charan Casey Other [facility] Other 03-11-2022 09:45-0500Systolic blood bslrarqg302 mm[Hg] Charan Casey Other [facility] Other 02-01-2022 17:20-0500Body .18 cmDayudi Chatterjee Other [facility] Other 02-01-2022 17:20-0500Body mass index (BMI) [Ratio] 38.84 kg/m2Dale Chatterjee Other [facility] Other 02-01-2022 17:20-0500Body .49 kgDale Chatterjee Other [facility] Other 01-04-2022 15:00-0500Body kgdkis629.18 cmYeisonheather Casey Other [facility] Other 11-02-2021 17:15-0400Body ihmcrr639.18 cmTjeb Ortiz Other [employer] Other Encounters Encounter DateEncounter TypeCare ProviderFacilityStart: 10-11-2025 End: 42-96-9963Uwmfclzvw encounterAlllucia Munroe DO Work Phone: [facility] 230Comment on above: Medication QuestionStart: 07-27-2025 End: 16-45-4584Diheuy flowsheetShaina Munroe DO Work Phone: [facility] 230Start: 07-27-2025 End: 17-04-6844Bfshxu flowsheetShaina Munroe DO Work Phone: [facility] 230Start: 07-27-2025 End: 59-95-6208Pqaoup outpatient visit 25 minutesAlllucia Munroe DO Work Phone: [facility] 230Comment on above:Type 2 diabetes [...] index (BMI) of35.0 to 35.9 in adult ([facility]-H[facility])Start: 07-27-2025 End: 90-30-8329suinczswomETVGQNO M PETZNICKNot AvailableStart: 07-12-2025 End: 78-33-5722bfcvaydrysPgjwm Kuns DO Work Phone: [facility] Work Phone: Start: 07-12-2025 End: 75-83-9186Ezwfiln encounter procedureCharan Louise DO-[facility] Work Phone: Start: 63-12-3369Wuy-patient / Non-visitMojunito Lyons MD-[facility] Work Phone: Start: 68-58-1029Alw-patient / Non-visitMojunito Lyons MD-[facility] Work Phone: Start: 48-38-8353Ffj-patient / Non-visitGustavo Cuevas DO -[facility] Work Phone: Start: 06-21-2025 End: 91-11-2029tzqihwjrqtPcbje Kuns DO Work Phone: [facility] Work Phone: Start: 06-21-2025 End: 46-85-3301Xvqessj encounter procedureBlas Louise MD-[facility] Work Phone: Start: 47-79-2161Aaw-patient / Non-visitBlas Luoise MD-[facility] Work Phone: Start: 06-14-2025 End: 28-20-2247ekmdrxbrlnIwtps Kuns DO Work Phone: [facility] Work Phone: Start: 06-14-2025 End: 92-55-1232Doqpwuo encounter procedureBlas Louise MD-[facility] Work Phone: Start: 06-05-2025 End: 25-53-8023Afniafz encounter procedurePelizbeth [facility]: 06-05-2025 End: 87-42-7119ckwrfnzdbsJnyso Kuns DO Work Phone: [facility] Work Phone: Start: 05-31-2025 End: 03-60-5052ygpzasrtuhBlthn Kuns DO Work Phone: [facility] Work Phone: Start: 05-31-2025 End: 37-79-3883Qlqzida encounter procedureBlas Louise MD-[facility] Work Phone: Start: 05-15-2025 End: 43-59-2044Uwmzzb outpatient visit 25 minutesAlllucia Munroe DO Work Phone: [facility] 230Comment on above:Type 2 diabetes mellitus with [...] index (BMI) of35.0 to 35.9 in adult ([facility])Start: 05-15-2025 End: 81-95-1651bjvipjbwylQFXQSKZ M PETZNICKNot AvailableStart: 03-06-2025 End: 42-01-0105krevduiuerMkzxn Kuns DO Work Phone: [facility] Work Phone: Start: 03-06-2025 End: 97-16-7139Ouvftyd encounter procedureBryan Kuns DO Work Phone: [facility] Family [facility] Work Phone: Start: 02-16-2025 End: 23-05-5888nomzuhhsoaDcdhn Kuns DO Work Phone: [facility] Work Phone: Start: 02-16-2025 End: 71-55-3579Kdgwehl encounter procedureBryheather Masseys DO Work Phone: [facility] Work Phone: Start: 02-14-2025 End: 75-20-5177asduhbzucoPCKXQQKAri William AvailableStart: 75-58-0733San- patient / Non-visitBryheather Masseys DO Work Phone: [facility] Work Phone: Start: 02-01-2025 End: 98-81-1886bfhcaxpqgfCdwjb Kuns DO Work Phone: [facility] Work Phone: Start: 02-01-2025 End: 90-33-3634Epswdcd encounter procedureBryheather Masseys DO Work Phone: [facility] Work Phone: Start: 01-31-2025 End: 58-87-0920yxvrzbwizqDgzcg Kuns DO Work Phone: [facility] Work Phone: Start: 01-31-2025 End: 81-60-1472Qesvbgobyh RecurringBryan Kuns DO Work Phone: [facility]-Physical Therapy [place]Start: 26-37-1060Mdzupnhnsa RecurringBryan Kuns DO Work Phone: [facility]-Physical Therapy [place]Start: 01-26-2025 End: 36-72-5064ushkdckyttLypyk Kuns DO Work Phone: [facility] Work Phone: Start: 01-26-2025 End: 62-79-9353Qwuwrwu encounter procedureBryheather Masseys DO Work Phone: [facility] Work Phone: Start: 73-02-4125Oejggofztp RecurringBryan Brysons DO Work Phone: [facility]-Physical Therapy [place]Start: 01-23-2025 End: 64-04-8270Eneeezt encounter procedureBryheather Brysons DO Work Phone: [facility]-MRI [address] Work Phone: Start: 01-23-2025 End: 77-45-2789ghkwarvmkhFvaer Kuns DO Work Phone: [facility] Work Phone: Start: 01-18-2025 End: 39-07-7009wwkxluuudzHwtge Kuns DO Work Phone: [facility] Work Phone: Start: 01-18-2025 End: 01-90-6948Ygrknxj encounter procedureYeisonheather Brysons DO Work Phone: [facility] Work Phone: Start: 10-33-4301Rihbbsxzsf RecurringCharan Masseys DO Work Phone: [facility]-Physical Therapy [place]Start: 01-09-2025 End: 95-75-5253Jxrohmhxk encounterShaina Munroe DO Work Phone: [facility] 230Start: 12-63-7293Awz-patient / Non-visitBryheather Casey DO Work Phone: [facility] Work Phone: Start: 01-09-2025 End: 73-10-7770krghbkgybnWwdvw Brysons DO Work Phone: [facility] Work Phone: Start: 01-09-2025 End: 81-95-2946Fktkkfz encounter procedureBryan Brysons DO Work Phone: [facility]St[facility] Work Phone: Start: 80-04-8547Avfaanuahi RecurringBryan Brysons DO Work Phone: [facility]-Physical Therapy [place]Start: 12-29-2024 End: 76-68-6485qkoymzfaqcKwgph Kuns DO Work Phone: [facility] Work Phone: Start: 12-29-2024 End: 30-62-5543Wutfedr encounter procedureBryan Brysons DO Work Phone: [facility] Work Phone: Start: 12-26-2024 End: 46-20-9287ffknewtbhnFkdbj Kuns DO Work Phone: [facility] Work Phone: Start: 12-26-2024 End: 43-53-7019Upjglvt encounter procedureBryan Brysons DO Work Phone: [facility] Physician [facility] Work Phone: Start: 14-82-1197Mltznmbets RecurringBryan Brysons DO Work Phone: [facility]-Physical Therapy [place]Start: 12-09-2024 End: 27-87-3039hcsfffsvrlFwefx Kuns DO Work Phone: [facility] Work Phone: Start: 12-09-2024 End: 63-13-9486Wgrxntm encounter procedureCharan Masseybryn DO Work Phone: [facility] Work Phone: Start: 12-08-2024 End: 48-22-5737Vgktagd encounter procedureCharan Casey DO Work Phone: [facility]trStart: 12-08-2024 End: 58-39-5065vkerximmmqPsnfx Kuns DO Work Phone: [facility] Work Phone: Start: 65-77-5906Ftknbubeks RecurringBryheather Casey DO Work Phone: [facility]-Physical Therapy [place]Start: 18-42-6018Ukf-patient / Non-visitYeisonheather Casey DO Work Phone: [facility] GroupL[facility] Work Phone: Start: 2024 End: 63-27-2478Bmjqhxhpr to same day surgery centerCharan Casey DO Work Phone: [facility]-Digestive Health Work Phone: Start: 2024 End: 27-23-7476daypylpdhsMcpmmc FelterFacility:[facility] Start: 10-25-2024 End: 20-55-2146Ihlbyne encounter procedureCharan Masseybryn DO Work Phone: [facility] Phys[facility] GroupL[facility] Work Phone: Start: 10-25-2024 End: 70-49-0053sqdqlglvbpNacva A BaileyFacility:[facility] Akrontart: 10-19-2024 End: 45-27-3833feluddeexlRqzkt Kuns DO Work Phone: [facility] Work Phone: Start: 10-19-2024 End: 70-40-3789Qpudpnc encounter procedureCharan Casey DO Work Phone: [facility] [employer] Work Phone: Start: 10-17-2024 End: 64-57-0098Szwnpc outpatient visit 25 minutesAlllucia Carmen Acevessebastian DO [...] to 39.9 in adult (CMS/HCC)Start: 10-17-2024 End: 52-41-4657jhebbpoigxOARTNLK Carmen MUNROENot AvailableStart: 75-27-8723Rhp- patient / Non-visitDO Charan Casey Work Phone: [facility] Work Phone: Start: 09-20-2024 End: 87-69-5282Nvvqgymts to same day surgery centerDO Charan Casey Work Phone: [facility] Work Phone: Start: 09-20-2024 End: 20-21-0993mxeppuiwqnXU Charan Casey Work Phone: [facility] Work Phone: Start: 46-62-5598Yej-patient / Non-visitDO Charan Casey Work Phone: [employer] [place] Work Phone: Start: 09-12-2024 End: 53-69-2486zciollunymTG Charan Casey Work Phone: [facility] Work Phone: Start: 09-12-2024 End: 08-77-0702Gxxhgry encounter procedureDO Charan Casey Work Phone: [facility] Work Phone: Start: 09-07-2024 End: 48-50-0399Krhuted encounter procedureDO Charan Casey Work Phone: [facility] Work Phone: Start: 09-07-2024 End: 19-56-6819tpmpwjvxbvMR Bryan Kuns Work Phone: [facility] Work Phone: Start: 09-02-2024 End: 34-74-3717iqyiedhtmyOkzjz KunsFacility:[facility] Start: 29-41-2481Vqfelmslay RecurringDO Charan Casey Work Phone: [facility]-Physical Therapy [place]Start: 08-25-2024 End: 55-55-9705Tlfyac outpatient visit 25 minutesRosalinda Torres MD Work Phone: uh [facility] HospitalComformerly [facility] on above:Coronary artery disease, unspecified vessel or lesion type, unspecified whether angina present, unsp ecified whether [place] or transplanted heart; Elevated coronary artery calcium [...] unspecified whether serious comorbidity presentStart: 06-13-2024 End: 44-33-5810ycbbynmcmpLC Bryan Kuns Work Phone: [facility] Work Phone: Start: 06-13-2024 End: 87-35-2661Akgkcxd encounter procedureDO Charan Casey Work Phone: [facility] Work Phone: Start: 06-08-2024 End: 72-65-9167lcmwngzzamAG Charan Casey Work Phone: [facility] Work Phone: Start: 06-08-2024 End: 92-28-1491Apibpup encounter procedureDO Charan Casey Work Phone: [facility] Sleep Lab Work Phone: Start: 02-16-6904Kke-patient / Non-visitDO Charan Casey Work Phone: [facility] Work Phone: Start: 05-31-2024 End: 35-31-7296Masesmiup to same day surgery centerDO Charan Casey Work Phone: [facility] Work Phone: Start: 05-31-2024 End: 81-59-6847htmfcnuvldDX Charan Casey Work Phone: [facility] Work Phone: Start: 05-23-2024 End: 72-98-6978iemcugwcnjCX Charan Casey Work Phone: [facility] Work Phone: Start: 05-23-2024 End: 05-63-6929Auwzdtg encounter procedureDO Charan Casey Work Phone: [facility] Pain Management [facility] Work Phone: Start: 03-44-1442Pjp-patient / Non-visitDO Charan Casey Work Phone: [facility] [place] Work Phone: Start: 83-89-8190Wkx-patient / Non-visitDO Charan Casey Work Phone: [facility] Family [facility] [place] Work Phone: Start: 40-59-1452Xqv-patient / Non-visitDO Charan Casey Work Phone: [facility] Work Phone: Start: 03-17-2024 End: 81-54-5808rvrczmokzpRO Charan Casey Work Phone: [facility] Work Phone: Start: 03-17-2024 End: 94-00-9160Hvxtxco encounter procedureDO Charan Casey Work Phone: [facility] Pain Management [facility] Work Phone: Start: 03-05-2024 End: 78-87-9008eejuydxbreBZ Charan Casey Work Phone: [facility] Work Phone: Start: 03-05-2024 End: 23-78-9215Usnbahf encounter procedureDO Charan Casey Work Phone: [facility] [place] Work Phone: Start: 03-01-2024 End: 31-47-0424kxswgtegmgGT Charan Casey Work Phone: [facility] Work Phone: Start: 03-01-2024 End: 01-77-3519Buvhldu encounter procedureDO Charan Casey Work Phone: [facility] Nephrology Work Phone: Start: 02-29-2024 End: 52-79-5168wmodxodmkvJV Charan Casey Work Phone: [facility] Work Phone: Start: 02-29-2024 End: 18-24-4945Axpoevu encounter procedureDO Charan Casey Work Phone: [facility]art: 21-14-7276Nof-patient / Non-visitDO Charan Casey Work Phone: [facility] Work Phone: Start: 02-22-2024 End: 14-25-7978tmgdzekezbPKTMBP [facility] AmbulatoryStart: 02-22-2024 End: 24-84-4675Eridiu outpatient visit 25 minutesRosalinda Torres MD Work Phone: [facility] on above:Coronary artery disease, unspecified vessel or lesion type, unspecified whether angina present, unsp ecified whether [place] or transplanted heart (Primary Dx); Essential hypertension; 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; Hyperlipidemia, unspecified hyperlipidemia type; Obstructive sleep apnea syndrome; Class 2 obesity with body mass index (BMI) of 37.0 to 37.9 in adult, unspecified obesity type, unspecified whether serious comorbidity present; Insulin-requiring or dependent type II diabetes mellitus ([facility])Start: 07-68-3050Gns-patient / Non-visitDO Charan Casey Work Phone: [facility] Work Phone: Start: 62-92-5143Niy-patient / Non-visitDO Charan Casey Work Phone: [facility]-[place] [facility] Work Phone: Start: 02-04-2024 End: 06-84-6893Trnvzcb encounter procedureDO Charan Casey Work Phone: [employer] [facility] [employer] [place] Work Phone: Start: 01-11-2024 End: 38-22-6362vkjgoencipZjucc Kuns Other [employer] Other Start: 72-51-5433Qixktbeos encounterCharan Waters Family [facility] [place]Start: 12-31-2023 End: 81-79-5456btlnqihwcaNyidj Kuns Other [facility] Other Start: 16-70-1529Wgubxuglt encounterBryheather Waters Family Medicine [place]Start: 12-30-2023 End: 53-13-8330Hsnckkc encounter procedureDO Charan Casey Work Phone: [facility]trStart: 12-30-2023 End: 63-56-3718qodmnntkypMY Charan Casey Work Phone: [facility] Work Phone: Start: 67-67-5892Aiytyq outpatient visit 15 minutes Charan Waters [facility] [place]Start: 12-30-2023 End: 56-65-6823Kkxnhin encounter procedureDO Charan Casey Work Phone: [facility]-Start: 11-26-2023 End: 00-73-7017yehfpfrvdxAA Charan Casey Work Phone: [facility] Work Phone: Start: 11-26-2023 End: 01-31-2082Uqecxun encounter procedureDO Charan Casey Work Phone: [facility] CenterStart: 11-06-2023 End: 92-40-8629auyyiqxinpAhmku Kuns Other [employer] [facility] Other Start: 09-38-4143Jzicmkghn encounterCharan Waters Referral CoordinatorStart: 20-00-7465Coegbwwd care educationDaGreene Memorial Hospital Care ClinicStart: 71-11-7662Imtxnmedf by computer linkDawn [facility] ClinicStart: 11-05-2023 End: 87-48-0136bgfhdqurgtPR Charan Casey Work Phone: [facility] Other Start: 11-05-2023 End: 52-91-5699Bgysucufdh RecurringDO Charan Casey Work Phone: [facility] Work Phone: Start: 65-47-1339Csoqbysmji RecurringDO Charan Casey Work Phone: [facility] Work Phone: Start: 11-03-2023 End: 20-36-9912dlzutxjzlyWeeza Kuns Other [employer] Other Start: 13-30-6899Gcvzwxboi encounterCharan Waters Family Medicine [place]Start: 10-28-2023 End: 32-51-4742ihusafsygvYzzeat Felter Other [employer] Other Start: 22-51-4954Vvxilc outpatient visit 15 minutes Blas Berger [facility] [place]Start: 17-19-0799Xdzmfqboh encounter Blas FelterFPG Pain Management [place] CreekStart: 10-28-2023 End: 54-03-4130Wsrffbw encounter procedure Charan Casey Work Phone: [facility] [place] Work Phone: Start: 10-21-2023 End: 50-96-9165uauiyqzuarHyhkac [place] Other [employer] Other Start: 43-25-8174Xgnbtv outpatient visit 15 minutes [facility]as [facility] Arabi RoadStart: 10-21-2023 End: 52-67-3181Ppqpymh encounter procedureDO Charan Casey Work Phone: [facility] [place] Work Phone: Start: 10-19-2023 End: 69-20-4812pkgsjckebbFsamri Felter Other [employer] Other Start: 92-80-4107Aesacfcqo encounterThomas FelterFPG Pain Management [place] CreekStart: 10-07-2023 End: 92-37-7660jhfeydxclrPnmxb Kuns Other [employer] [facility] Other Start: 38-32-4645Jxnckskpv encounterBryheather CaseyFPG Family Medicine [place]Start: 10-06-2023 End: 28-37-9833Nybkorjwl to same day surgery centerDO Charan Casey Work Phone: [facility]-Digestive Health Work Phone: Start: 10-06-2023 End: 82-26-6352eeutkxsjmjXV Bryan Kuns Work Phone: [facility] Work Phone: Start: 09-23-2023 End: 76-59-5256komrnvmktcIrchub Felter Other [employer] [facility] Other Start: 84-78-5312Khjqtn outpatient visit 15 minutes Blas FelterFPG Pain Management [place] CreekStart: 09-15-2023 End: 18-45-0038gfuvwdyzekEwvgg Sole Other [employer] [facility] Other Start: 01-09-4250Zimtke outpatient visit 25 minutes Elpidio QadirFPG NephrologyStart: 09-14-2023 End: 51-01-9637ebetlkistmFT Bryan Kuns Work Phone: [facility] Work Phone: Start: 09-14-2023 End: 51-37-8790Lzuxwkf encounter procedureDO Charan Casey Work Phone: [facility] CenterStart: 09-08-2023(Procedure) ShortThomas FelterPaulding County Hospital OutPtStart: 09-08-2023 End: 20-01-8145Tqhapwgqo to same day surgery centerDO Charan Casey Work Phone: [facility]-Digestive [facility] Work Phone: Start: 09-08-2023 End: 34-46-3122pwlqwovnzuRX Charan Casey Work Phone: [facility] Work Phone: Start: 08-25-2023 End: 72-80-0857fjpuradwgiLvvc Asaad Other [facility] Other Start: 21-93-4632Lxwdjlama encounterImasonia TreadwellFPG Referral CoordinatorStart: 08-18-2023 End: 75-31-3488ujhwutezndAlssw Kuns Other [facility] Other Start: 01-45-2825Vjebwuzdu encounterCharan Waters Family Medicine [place]Start: 08-17-2023 End: 79-00-1170gqojjngjboLbmnzg Felter Other [facility] Other Start: 62-49-4671Bbbmgi outpatient visit 25 minutes Blas Berger [facility] [place]Start: 08-17-2023 End: 47-53-6946Dbikirb encounter procedureDO Charan Casey Work Phone: [facility] Start: 43-20-3691Ayeoai outpatient visit 15 minutesDale BraunJohnson City Medical Center NeurosurgeryStart: 08-11-2023 End: 33-90-0743tniuushhhoDD Charan Casey Work Phone: [facility] Work Phone: Start: 08-11-2023 End: 34-79-8480Wwvssan encounter procedureDO Charan Casey Work Phone: [facility] CtrStart: 08-05-2023 End: 4183vgeovgxjqhYtqsc Kuns Other [facility] Other Start: 51-65-3254Stlzgb outpatient visit 25 minutes Charan Waters [facility] [place]Start: 07-02-2023 End: 27-69-8688ccxenzgzxyVnmhk Kuns Other [facility] Other Start: 11-62-7785Tpbsntzwu encounterBryheather Waters Family Medicine [place]Start: 06-08-2023 End: 26-34-2305jnvzbktkrtIK Charan Masseybryn Work Phone: [facility] Work Phone: Start: 06-08-2023 End: 82-11-6986Znvdmkcnwe RecurringDO Charan Casey Work Phone: [facility]art: 05-28-2023 End: 86-97-0350tyqamlmtcjCuhf Fitt Other [facility] Other Start: 76-74-4247Zejmvpyd care educationDawn Christophet [facility] Hospitaltart: 53-08-5482Nldrnsmnab RecurringDO Charan Casey Work Phone: [facility] Work Phone: Start: 59-60-2444Eapnys outpatient visit 25 minutes Charan Waters [facility] [place]Start: 05-19-2023 End: 34-16-3956mtfzmmaobpFD Charan Casey Work Phone: [facility] Work Phone: Start: 05-19-2023 End: 30-64-8188Hzvzkyf encounter procedureDO Charan Casey Work Phone: [facility] CtrStart: 05-05-2023 End: 51-32-1948ttsayftsouTvocr Kuns Other [employer] [facility] Other Start: 74-99-3762Dozjfhfbp encounterBryheather DelarosaG Family Medicine [place]Start: 50-27-7502Meguyn outpatient visit 25 minutesBryheather Casey Work Phone: [phone]-Guw[address] Work Phone: Start: 81-37-0491cgyoisvxtiCpDerek Casey Facility:[id number]: 04-13-2023 End: 37-62-0822wfyziqjqswHGPJQ D [facility]EDARFacility:B7Mxsly: 04-07-2023 End: 52-73-0580xdzbellobnHXKZQD R [facility] HOSPITALFacility:K8Plqlg: 27-91-9236Eekgvtcto for preprocedural laboratory examinationPETER D [facility] Start: 04-06-2023 End: 94-42-9811wjirtsinioMqtvb Kuns Other [employer] [facility] Other Start: 96-01-5046Ozvqfjvdv encounterBryheather DelarosaG Family Medicine [place]Start: 30-29-5874Culrnl outpatient visit 25 minutesCharan DelarosaG Family Medicine [place]Start: 03-31-2023 End: 98-96-0157inrdbquqthCBBNZ D [facility] Other Start: 03-31-2023 End: 80-06-0931Xsxjvfijx for preprocedural laboratory examinationPETER Sonia CASTROFacility:N2Idohl: 03-26-2023 End: 25-27-5362vuushapboiCvrsw Kuns Other [facility] Other Start: 92-71-3760Suigywtba encounterCharan DelarosaG Family Medicine [place]Start: 03-23-2023 End: 90-25-3766sqvltwaoesAPHTXU R ZIEBERFacility:A2Mxwec: 03-10-2023 End: 41-47-2338ktsmowpavrMchbt Sole Other [facility] Other Start: 75-93-6157Nvuife outpatient visit 25 minutes Elpidio QadirFPG NephrologyStart: 03-06-2023 End: 81-14-2079kwpkpsjrzbXW Charan Casey Work Phone: [facility] Work Phone: Start: 03-06-2023 End: 36-78-6677Lrkdfgh encounter procedureDO Charan Casey Work Phone: [facility] Hospitaltart: 40-18-1043Smfblt outpatient visit 15 minutesChristopher [facility] SouthStart: 05-50-5558Ptvgamhts encounterCharan ODOM Family Medicine [place]Start: 03-04-2023 End: 29-93-5760oghciqgnpdVT Charan Casey Work Phone: [place] [facility] Other Start: 03-04-2023 End: 74-71-0762Ygvpalr encounter procedureDO Charan Casey Work Phone: [facility]-Sleep Lab Work Phone: Start: 03-03-2023 End: 33-79-1949oncuxegpwzJRDDUR R ZIEBERFacility:W0Gubho: 02-17-2023 End: 20-17-4469icivmecsubHZUTH V WESTFacility:S0Kytav: 02-16-2023 End: 43-89-5770glpieemispWiohk Kuns Other [employer] [facility] Other Start: 10-40-0913Ohebjyksu encounterBryheather DelarosaG Family Medicine [place]Start: 02-05-2023 End: 85-87-2960udswlfgbwqEhxzy Kuns Other [facility] Other Start: 13-10-2843Qtbanghzl encounterBryheather Waters Family [facility] [place]Start: 02-03-2023 End: 35-37-4015zwiaepxhxgLSAJW V WESTFacility:Y0Lhotp: 01-27-2023 End: 86-71-8943Ssqgejm encounter procedureDO Charan Casey Work Phone: [facility] Work Phone: Start: 01-27-2023 End: 71-31-6467wdnblgxhxrVO Bryan Kuns Work Phone: [facility] Work Phone: Start: 77-30-7498Vjrizp Injection one Vaccine (Admin Chg)[facility] Coordinated Care ClinicStart: 01-20-2023 End: 04-31-8914twwphaxkbdDLAJQK R ZIEBERFacility:G0Yvumy: 01-19-2023 End: 03-40-4047vsrvtxxeqgOexyl Kuns Other [facility] Other Start: 85-52-9829Hcawcmyba encounterYeisonheather DelarosaG Family Medicine [place]Start: 12-29-2022 End: 49-28-6560xgkcdbunhsAJRIVH R ZIEBERFacility:C5Afqaj: 69-42-2624Qlmhanktb for preprocedural cardiovascular examinationPETER D [facility] HospitalStart: 05-21-2065Unovrwhak for preprocedural laboratory examinationPETER D [facility] HospitalStart: 12-23-2022 End: 14-16-8487bchdkvjtzhYCVUN D [facility]ARFacility:G3Ybjbs: 12-23-2022 End: 12-23-4078Utrkswlyp for preprocedural cardiovascular examinationPETER D [facility]ARFacility:P5Hwpgy: 11-26-2022 End: 65-46-2175jockaspoopLRZHC V WESTFacility:N2Fkddq: 11-12-2022 End: 27-75-9288qdyhypdcaoSVLBJA R SHAKIRAERFacility:K1Tvttv: 89-27-8329ninimpiwny Dr. Charan CaseyFacility:[address]Fnbif: 10-28-2022([facility]) FCC Injection Eliud [facility]Pacific [facility] Hospital Coord[facility] Care ClinicStart: 10-28-2022 End: 78-42-0094aoqfgxkipjCG Bryan Kuns Work Phone: [facility] Work Phone: Start: 10-28-2022 End: 93-09-1115Prysjoa encounter procedureDO Charan Casey Work Phone: [facility]-[place] for Coordinated CareStart: 10-16-2022([facility] C Vac) [facility] Covid VaccineDaCullman Regional Medical Center Coordinated Care ClinicStart: 10-16-2022([facility]) [facility] InjectionDawn [facility] Coordinated Care ClinicStart: 43-24-0218Mxjyeigme encounterAbdul Sole [facility] NephrologyStart: 10-16-2022 End: 03-35-3782ywjtkfkzxkOV Bryan Kuns Work Phone: [place] [facility] Other Start: 10-16-2022 End: 87-51-1002Lenodhv encounter procedureDO Charan Casey Work Phone: [facility]-Center for Coordinated CareStart: 10-15-2022 End: 05-87-1616omzmelcdwhUN Charan Casey Work Phone: [facility] Work Phone: Start: 10-15-2022 End: 48-77-7807Lxwlvht encounter procedureDO Charan Casey Work Phone: [facility]-MRI Str[address] RdStart: 10-13-2022 End: 04-74-1112kixslrjkicOD Charan Casey Work Phone: [facility] Work Phone: Start: 10-13-2022 End: 91-70-6621Hbqacze encounter procedureDO Charan Casey Work Phone: [facility]-MRI Str[address] RdStart: 09-24-2022 End: 14-05-0539ggqpwcapiyFmfbb Sole Other [employer] Other Start: 61-86-5941Gmpucv outpatient visit 25 minutes Elpidiorohan [facility] CampbellStart: 09-02-2022 End: 73-22-8634jhjugzilwvTxyjh Kuns Other [employer] Other Start: 78-62-7974Zazfrn outpatient visit 25 minutes Charan Waters [facility] [place]Start: 08-13-2022 End: 74-16-4019Eenjqxf encounter procedureDO Charan Casey Work Phone: [facility]-Lab [facility] Hospitaltart: 08-07-2022 End: 12-15-9623gmneiisxswNogvj Kuns Other [facility] Other Start: 03-66-8794Ytmuunpby encounterCharan Waters [facility] [place]Start: 07-27-2022 End: 63-20-2084Jejfldczn department patient visitDO Charan Casey Work Phone: [facility]-Emergency RoomStart: 07-16-2022 End: 19-88-8513xtswwyyeavRqwuz Kuns Other [facility] Other Start: 57-94-9625Ctlnupixw encounterBryheather Waters [facility] [place]Start: 07-02-2022 End: 96-31-7170ivbclnvheqKswlf Kuns Other [facility] Other Start: 35-37-4939Vvjxdsggy encounterCharan DelarosaG Family Medicine [place]Start: 71-36-6045Vtcery outpatient visit 25 minutesCharan Casey Work Phone: [phone]-FbxasLifeCare Medical Center 250 DO Work Phone: Start: 04-30-2022 End: 46-00-6503iidyabthjlYypdvynccoe Coco Other [facility] Other Start: 71-97-9951Siskue outpatient visit 10 minutes Federico SepulvedaTrihealth [facility] SouthStart: 04-14-2022 End: 41-98-7810gxblpbhhhmIhtfh Kuns Other [facility] Other Start: 47-40-8495Fknzff outpatient visit 25 minutes Charan Waters [facility] [place]Start: 04-07-2022 End: 36-04-9032ajutnjlkbsFicdi Kuns Other [facility] Other Start: 16-63-4836Utsasrlnt encounterCharan Waters [facility] [place]Start: 04-02-2022 End: 07-31-3069isxgbcfoowIkuiv Kuns Other [facility] Other Start: 68-48-0466Byrwxaasr encounterCharan WashingtonG Family Medicine [place]Start: 03-31-2022 End: 03-81-7188wggtxdmjyhZlzmu Kuns Other [facility] Other Start: 71-51-9628Fppsgboqs encounterBryheather WashingtonG Family Medicine [place]Start: 60-47-0628PGILBNKME, Provider: Rosalinda Torres, Status: Pen, Time: 1:00 PMCharan Masseys Work Phone: [phone]-ButmaLifeCare Medical Center 250 DO Work Phone: Start: 87-46-8053Teuyp UpdateCharan Louise Kuns Work Phone: [phone]-ThlcaMercy HospitalJohannesburg 250 DO Work Phone: Start: 03-13-2022 End: 72-71-5514rthtfgkotgUaokh Kuns Other [facility] Other Start: 78-73-2426Etipllqrk encounterCharan WashingtonG Family Medicine [place]Start: 18-44-9683Lveav UpdateCharan P Kuns Work Phone: [phone]-FccelMercy HospitalJohannesburg 250 DO Work Phone: Start: 03-07-2022 End: 42-15-5302pfwzeoqzxdFxlm Fitt Other [facility] Other Start: 49-58-7467Ypdeggqrt encounterDapauline Angelo [facility] ClinicStart: 03-04-2022 End: 92-34-2370ogyamrkovhTagey Kuns Other [facility] Other Start: 44-96-0338Iywwiwwqm encounterBryheather CaseyFPG [facility] CareStart: 02-20-2022 End: 71-93-9325bmfqiutoxiLomro Sole Other [employer] [facility] Other Start: 72-26-1276Fnfksk outpatient visit 25 minutes Elpidio QadirFPG NephrologyStart: 02-10-2022 End: 34-68-9413hutbdbzbvzFhdfu Kuns Other [facility] Other Start: 99-38-2503Ufyerfyka encounterBryheather CaseyFPG Family Medicine [place]Start: 02-07-2022 End: 07-48-6324vuayfzydzaJiwms Kuns Other [facility] Other Start: 56-21-7783Mzseym outpatient visit 25 minutes Charan CaseyFPG Family Medicine [place]Start: 02-05-2022 End: 90-67-0726fzivzmbnuxXdlgt Kuns Other [employer] [facility] Other Start: 61-52-0202Lnrdngnzx encounterBryheather MasseysFPG Family Medicine [place]Start: 01-21-2022 End: 84-67-4596vbdkopmdbbQkeok Kuns Other [facility] Other Start: 22-21-6358Geezdtoyl encounterBryheather MasseysFPG Family Medicine [place]Start: 12-31-2021 End: 32-48-3790wubewqwxgkGayz Chatterjee Other [employer] [facility] Other start: 68-72-7171Lsiejz outpatient visit 15 minutes Thierno Guillermo [facility] NeurosurgeryStart: 12-07-2021 End: 06-18-9410oakfhgmwhgSwgyt Kuns Other [facility] Other Start: 23-77-8098Chcwdcxuf encounterCharan Waters [facility] [place]Start: 12-06-2021 End: 38-14-2580wipjvukmbiCpqin Kuns Other [employer] [facility] Other Start: 52-46-2366Znbtmcups encounterCharan MasseybrynERICRuthie [facility] Primary CareStart: 12-03-2021 End: 50-31-1732zotwcvbrzxIkwuw Kuns Other [place] [facility] Other Start: 98-87-0934Ptqlar outpatient visit 15 minutes Charan Waters [facility] [place]Start: 10-01-2021 End: 39-65-3462rdmwauxidzGyqljs Felter Other [facility] Other Start: 40-40-5856Subpjo outpatient visit 25 minutes Blas [facility] [place] End: 24-77-5933Gnllerb encounter statusCharan Dani Casey Work Phone: [phone]-Aaftz [facility] 250 DO Work Phone: Procedures DateProcedureProcedure DetailPerforming ClinicianStart: 41-22-1925Gavttfaz Identification OnlyBryheather Masseys DO Work Phone: Start: 76-07-8695M-ray of both feetCharan Masseys DO Work Phone: Start: 33-20-3128Pygabqjwhi glycosylated q7aRzopqjc M Petsebastian DO Work Phone: Start: 60-28-5910BVZ of right shoulderYeisonheather Brysons DO Work Phone: Start: 68-76-2771DFK (POC)Charanheather Casey DO Work Phone: Start: 49-24-4970Jpkfa chest X-rayYeisonan Kuns DO Work Phone: Start: 97-49-2347Rflpb anesthetic lumbar facet joint nerve blockCharan Casey DO Work Phone: Start: 41-16-2272Jfnpm X-ray of right shoulderCharan Casey DO Work Phone: Start: 02-15-3245Hsrnsuqgsj glycosylated y7bTeikjns Carmen Munroe DO Work Phone: Start: 79-41-0726Nsaoa anesthetic sacral epidural blockDO Charan Casey Work Phone: Start: 35-28-8767Lxqoiwkzt mammography of bilateral breastsDO Charan Casey Work Phone: Start: 31-54-7559Wmicsvjyq of local anesthetic into sacroiliac jointDO Charan Casey Work Phone: Start: 84-24-8286DEP of lumbar spine with contrastDO Charan Casey Work Phone: Start: 37-04-2699Sgfzd cultureDO Charan Casey Work Phone: Start: 42-34-7730Kppdu chest X-rayDO Charan Casey Work Phone: Start: 22-74-0490Nbzwnsi of placement of stent for coronary artery disease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Rosalinda Torres MD Work Phone: Start: 33-08-0514Sijbtdz of cholecystectomyS/P laparoscopic cholecystectomyAlllucia Munroe DO Work Phone: Start: 23-68-7786Ntnbpnzpq colonoscopyDO Charan Casey Work Phone: Start: 84-94-8395AfjpbaskmynUhvbpx Ibrahim MD Work Phone: Start: 72-81-5772Owokptgml of local anesthetic into sacroiliac jointDO Charan Casey Work Phone: Start: 95-61-0906Dlayg X-ray of right hipDO Charan Casey Work Phone: Start: 34-89-5786A-ray of lumbar spine, six views including bending viewsDO Charan Casey Work Phone: Start: 54-11-7822Ofhjm chest X-rayDO Charan Casey Work Phone: Start: 91-54-2502Wkhgubttdnj of thoracic spineDO Charan Casey Work Phone: Start: 88-12-1391P-ray of lumbar spine, four or more viewsDO Charan Casey Work Phone: Start: 78-47-6608Nsakw cultureDO Charan Casey Work Phone: Start: 35-76-9950LQC of right ankleDO Charan Casey Work Phone: Start: 80-65-2824MNJ of right footDO Charan Casey Work Phone: Start: 66-17-9677AJC of left ankleDO Charan Casey Work Phone: Start: 22-47-8016FYA of left footDO Charan Casey Work Phone: Start: 66-17-5460JK of bilateral feetDO Charan Casey Work Phone: Start: 45-99-9179Cprmn volume recorder pneumoplethysmographyDO Charan Casey Work Phone: Start: 19-03-2123S-ray of left footDO Charan Casey Work Phone: Arthroplasty of kneeCharan Casey Work Phone: Cardiac catheterizationYeisonan P Brysons Work Phone: Cesarean sectionYeisonan P Brysons Work Phone: CholecystectomyCharan P Brysons Work Phone: History of placement of stent for coronary artery disease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Bryan P [address] [employer] Work Phone: Comment on above:February 2022;History of placement of stent for coronary artery disease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Rosalinda Torres MD Work Phone: History of placement of stent for coronary artery disease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Rosalinda Torres MD Work Phone: Operative procedure on ankleBryan P [address] [employer] Work Phone: Operative procedure on footBryan P [address] [employer] Work Phone: ParathyroidectomyBryan P [address] [employer] Work Phone: Procedure on backBryan P [address] [employer] Work Phone: Procedure on neckBryan P [address] [employer] Work Phone: Total colonoscopyBryan P [address] [employer] Work Phone: Comment on above:30Nov2018; Plan of Treatment DateCare ActivityDetailAuthorStart: 56-22-4709Xdnsehoih for malignant neoplasm of colonSouthview Medical [facility]: 51-52-7599Qcqeatxxqmvj Vaccine: Pediatrics (0 to 5 Years) and At-Risk Patients (6 to 64 Years) (3 - PPSV23 or PCV20)Pneumococcal Vaccine: Pediatrics (0 to 5 Years) and At-Risk Patients (6 to 64 Years) (3 - PPSV23 orPCV20)[facility]: 47-79-6411Udqmcqmeukdr Vaccine: Pediatrics (0 to 5 Years) and At-Risk Patients (6 to 64 Years) (3 of 3 - PPSV23 or PCV20)Pneumococcal Vaccine: Pediatrics (0 to 5 Years) and At-Risk Patients (6 to 64 Years) (3 of 3 - PPSV23 or PCV20) [facility]: 10-24-2025 End: 07-60-7534Mkdxlsa encounter dnnhhwtvy11/25/2025 10:30 AM EST Office Visit [facility] [address] [place] [address] Shaina Munroe, DO [address] [place] [address] [facility]ENTERB[facility] Garcia [facility] [address] Start: 79-03-8816Hgedxemp screeningDiabetes: Retinopathy ScreeningNOMD HealthcareStart: 08-15-2025 End: 34-39-5504Jhgmaiy encounter procedureNOMS [facility] 230Start: 24-04-2960DCNZK- 19 Vaccine ( season)COVID-19 Vaccine ( season)[facility] HealthcareStart: 16-16-2088Qihovbbew vaccinationINTERMOUNTAIN HEALTHCARE HealthcareStart: 07-27-2025 End: 61-30-4733Mburlyb encounter wixferijy40/28/2025 8:15 AM EDT Office Visit [facility] [address] [address] [place] [address] Shaina Munroe, DO [address] [place] [address] [facility] 230Comment on above:ArrivedStart: 03-28-2025 End: 80-51-1982Fguybhf encounter wdxdepcfr32/29/2025 8:50 AM EDT Office Visit [place] [id number] [facility] [address] [place] [address] Rosalinda Torres MD [address] [facility] [address] [place] [address] [facility]: 02-14[facility]2025 End: 65-88-4888Gwelltj encounter hcfrwwkka86/18/2025 9:30 AM EDT Office Visit [facility] [address] [place] [phone] Shaina Munroe, DO [address] [place] [address] [facility] 230Start: 97-46-3794MK Shoulder - right WO contrastSelect Medical Specialty Hospital - Akrontart: 01-94-8658QLP of right shoulder MR shoulder RT wo [facility]: 01-17-2025 Hemoglobin A1c measurementDiabetes: Hemoglobin Q3ASIEV HealthcareStart: 33-53-1587GzzqupczfSelect Medical Specialty Hospital - Akrontart: 21-08-7495NzaptruqzSelect Medical Specialty Hospital - Akrontart: 08-25-2024 End: 72-10-2905Rvycfde encounter tmkffejzk22/26/2024 8:40 AM EDT Office Visit [place] [address] [facility] [address] [place] [address] Rosalinda Torres MD [address] [facility] [address] [place] [address] [facility] CampusStart: 38-45-8571OIFSH-19 Vaccine ()COVID-19 Vaccine ()[facility] Start: 21-25-1107Zkxpekpaa vaccinationInfluenza Vaccine (#1)[facility] Start: 95-33-6883MibxocuhkSelect Medical Specialty Hospital - Akrontart: 92-50-4540Waqcimwc identified in Urine by CultureSelect Medical Specialty Hospital - Akrontart: 02-29-2024 Urine cultureUrine CultureSelect Medical Specialty Hospital - Akrontart: 05-58-1912OOJ, Provider: Rosalinda Torres, Status: Pen, Time: 9:10 AMFUV, Provider: Rosalinda Torres, Status: Pen, Time: 9:10 AMMP-[facility] 250 DO Work Phone: Start: 98-57-9682UcbeyezjqGeorgetown Behavioral Hospital Start: 19-75-1141YlhrrmtjpSelect Medical Specialty Hospital - Akrontart: 99-98-2847RHCHP-19 Vaccine ( season)COVID-19 Vaccine ()[facility] HospitalStart: 42-38-1563Oupkacrsu vaccinationInfluenza Vaccine (#1)[facility] Healthcareart: 97-26-6498Yhpptyfp identified in Urine by CultureSelect Medical Specialty Hospital - Akrontart: 40-99-4070LFO, Provider: Rosalinda Torres, Status: Pen, Time: 9:00 AMFUV, Provider: Rosalinda Torres, Status: Pen, Time: 9:00 AMMP-[facility] [employer] 250 DO Work Phone: Start: 74-31-3534HCbR/Tdap/Td Vaccines (2 - Td or Tdap)DTaP/Tdap/Td Vaccines (2 - Td or Tdap)[facility] Start: 06-47-0560XRGFYCYTI, Provider: Rosalinda Torres, Status: Pen, Time: 1:00 PM SURGNONUH, Provider: Rosalinda Torres, Status: Pen, Time: 1:00 PMMP-[facility] [employer] 250 DO Work Phone: Start: 38-77-6677MVI, Provider: Rosalinda Torres, Status: Pen, Time: 1:50 PMFUV, Provider: Rosalinda Torres, Status: Pen, Time: 1:50 PMMP-[facility] [employer] 250 DO Work Phone: Start: 89-21-1642BYY patients and/or patients aged 60+ years (1 - 1-dose 60+ series)RSV patients and/or patients aged 60+ years (1 - 1-dose 60+ series)[facility] HospitalStorofino: 48-33-5692Tthduvvqd for malignant neoplasm of breastMammogramUnBellevue Hospital: 38-60-1548Abpnymfbe for malignant neoplasm of cervixNOMS HealthcareStart: 58-04-9121VQsC/Tdap/Td Vaccines (1 - Tdap) DTaP/Tdap/Td Vaccines (1 - Tdap)[facility] HospitalStorofino: 92-40-9039Disbhldcj for malignant neoplasm of cervixUnParkview HealthStorofino: 68-40-9989Edrwe screening for proteinDiabetes: Urine Protein ScreeningSouthview Medical Center: 59-09-4802Lnjyxrjvn C screening Hepatitis C ScreeningSouthview Medical Center: 35-24-1048Zbjagenz foot examinationDiabetes: Foot ExamUnBellevue Hospital: 56-88-0495Ysglsjnj screeningDiabetes: Retinopathy ScreeningSouthview Medical Center: 11-46-7070AQV Vaccines (1 of 1 - Standard series)MMR Vaccines (1 of 1 - Standard series)[facility]: 1960 Hemoglobin A1c measurementDiabetes: Hemoglobin O1EMlpcjomcbrBellevue Hospital: 03-57-9328UJB screeningHIV ScreeningSouthview Medical Center: 33-43-8703Rodiy panelLipid PanelUnBellevue Hospital: 1960Medicare Annual Wellness (AWV)Medicare Annual Wellness (AWV)[facility]OM HealthcareStart: 1960Medicare Annual Wellness VisitMedicare Annual Wellness Visit (AWV)[facility]: 1960 Screening for malignant neoplasm of colonUnBellevue Hospital: 77-88-9514Zkatov Adult PhysicalYearly Adult PhysicalUnParkview HealthComprehensive metabolic 2000 panel - Serum or PlasmaGeorgetown Behavioral HospitalMR Lumbar spine WO and W contrast [facility] HospitalMR Shoulder - right WO contrastGeorgetown Behavioral HospitalPatient EducationPaulding County Hospital Ctr Work Phone: Patient referralPaulding County Hospital Ctr Work Phone: Renal function 1999 panel - Serum or PlasmaGeorgetown Behavioral HospitalRheumatoid factor [Units/volume] in Serum or Plasma [facility] Immunizations Immunization DateImmunizationNotesCare ZyufnnltIzydczas62-89-6893msnjsa vaccine recombinantDawn Fitt Other [facility]11-29-2022zoster vaccine recombinantAaron LePoire Other [facility]11-17-2022influenza virus vaccine, unspecified formulationDO Charan Casey Work Phone: [facility]11-17-2022influenza, seasonal, injectableRosalinda Torres MD Work Phone: [facility] Work Phone: [phone] SARS-CoV-2 VaccinationRosalinda Torres MD Work Phone: [facility] Work Phone: [phone]-59 Moderna (BIvalent)Renée Fitt Other [facility]11-17-2022influenza, high dose seasonal, preservative-freeDawn Fitt Other [facility] Other 11663860-92-9243eaxulyxkg, injectable, quadrivalent, preservative freeDawn Fitt Other [facility] Other 10898312-53-8212Nvhwqan COVID-19 Vaccine 100 MCG/0.5ML Intramuscular SuspensionBryheather P PagoPago Work Phone: [facility]10-27-2021Moderna SARS-CoV-2 Booster VaccinationFahadlucia Munroe DO Work Phone: [facility] HealthcareEkigciqlpg85-85-3032skcrenqm influenza, intradermal, preservative freeBryheather P [employer] Work Phone: [phone]-XudinFederal Medical Center, [place] 250 DO Work Phone: [phone]-69 Vaccine Moderna - Documentation Purposes OnlyThomas Erastoer Other [facility]12-30-2020Moderna COVID-19 Vaccine 100 MCG/0.5ML Intramuscular SuspensionBryan P Kuns Work Phone: [facility]10-01-2019influenza virus vaccine, unspecified formulationBryan P [employer] Work Phone: [phone]-EptxqFederal Medical Center, [place] 250 DO Work Phone: [phone], injectable, quadrivalent, preservative freeAllison Petznick DO Work Phone: noHannibal Regional HospitalMlotwfrszp17-76-7774conwxddaj, seasonal, injectableThomas Felter Other [facility]10-01-2018influenza, seasonal, injectableThomas Felter Other [facility]10-01-2018influenza, seasonal, injectable, preservative freeAllison Petznick DO Work Phone: noHannibal Regional HospitalSfcmcdtujo61-57-8854ctxkitslm virus vaccine, unspecified formulationDO Charan Casey Work Phone: [facility]01-03-2017influenza, seasonal, injectable, preservative freeBryan P Kuns Work Phone: [phone]-BkwczJon [place] [address] DO Work Phone: [phone]sfol conjugate vaccine, 13 valent Blas Felter Other [facility]01-03-2017influenza, high dose seasonal, preservative-freeThomas Felter Other [facility] Other 01621575-69-1621cugugubfk, injectable, quadrivalent, preservative freeDawn Fitt Other [facility] Other 01808595-84-5252etljsttvdhon polysaccharide vaccine, 23 valentBryan P Kuns Work Phone: [phone]-QrzhpLifeCare Medical Center 250 DO Work Phone: [phone]wtii polysaccharide vaccine, 23 valentBryan P Kuns Work Phone: [facility]10-10-2012influenza virus vaccine, unspecified formulationDO Charan Casey Work Phone: [facility]10-10-2012tetanus toxoid, reduced diphtheria toxoid, and acellular pertussis vaccine, adsorbed Blas Ortiz Other [facility]10-10-2012influenza virus vaccine, split virus (incl. purified surface antigen)Blas Ortiz Other [employer] Other influenza virus vaccine, unspecified formulationCharan Casey Work Phone: [phone]-YjfpaLifeCare Medical Center 250 DO Work Phone: Comment on above:2009NEGATED: Highlighted row has not occurred!03-41-4919hezbxaytw, injectable,quadrivalent, preservative free, pediatricThomas Diana Other [facility] Other Payers DatePayer CategoryPayerPolicy [id number] 2024MedicareUNITED HEALTHCARE MEDICARE UNITED HEALTHCARE MEDICARE [id number] 2024-Present [id number] [place], [place] [id number] 2024Medicare (Managed Care)[id number] [id number] 2.16.840.1.610439.3.57[id number] 2.16.840.1.107465.3.579.2.10232-65-1765Sbjqsop7912196 2.16.840.1.342224.3.579.2.[id number] 2.16.840.1.083110.3.579.2.76988-17-5701Mrnftef5140503 2.16.840.1.710857.3.57[id number] 2.16.840.1.061519.3.579.2.95294-80-4432Cfwfzmg2950009 2.16.840.1.162741.3.57[id number] 2.16.840.1.876519.3.579.2.45631-93-6792Qyauqef1069011 2.16.840.1.126372.3.579.2.60582-42-6626Srxgxrp3231509 2.16.840.1.258823.3.579.2.93637-14-2296Psbtpgc0406079 2.16.840.1.199692.3.57[id number] 2.16.840.1.506570.3.57[id number] 2.16.840.1.968351.3.57[id number] 2.16.840.1.224847.3.579.[id number] 2.16.840.1.274424.3.57[id number] 2.16.840.1.663755.3.579.2.872380-62-2941Gbohegf76791573 2.16.840.1.899932.3.579.2.269712-08-4695Bjgdzgs3140709 2..0.1.883836.3.579.[id number] 2.16.840.1.145541.3.57[id number] 2.0.1.649641.19 [id number] Pay [id number] Social History DateTypeDetailFacilityStart: 12-04-2023 End: 32-58-6850Eiueantbsc caffeine consumptionOccasional caffeine consumption [facility] HealthcareComment on above:Coffee;Start: 12-04-2023 End: 31-46-4068Cyq Assigned At [facility] HealthcareStart: 07-27-2022 End: 41-81-1113Mcvlwte smoking status NHISNever smoked tobacco (finding) [facility]: 28-36-7198Qlk Assigned At [facility] CenterFeCleveland Clinic Hill[facility] Hospitaltart: 05-19-2023 End: 46-64-0729Pnqhhvj use and exposureSmokeless tobacco non-userBucyrus Community Hospital Work Phone: Start: 12-04-2023 End: 54-75-3911Zgyfoym intakeLifetime non-drinker (finding)[facility] Work Phone: Start: 79-28-6653Jla Assigned At BirthNot on file [facility] Work Phone: Start: 02-12-2024 End: 53-58-4700Znfqmure to SARS-CoV-2 (event)Not sureUnParkview HealthStart: 10-19-2024 End: 07-35-0544QkeYvomcs (finding)[facility] HospitalDo you belong to any clubs or organizations such as amish groups, unions, fraternal or athletic groups, or school groups?YesNOMS HealthcareAre you now , , , , never or living with a partner?MarriedNOMS HealthcareHow often to you have a drink containing alcohol?NeverNOMS Healthcare Start: 46-65-7729Rmj many standard drinks containing alcohol do you [...] 05-20-2023 Gender identityIdentifies as female gender (finding)[facility] Medical Equipment Procedure CodeEquipment CodeEquipment Original TextEquipment IdentifierDates Fusion, spine, lumbar, XLIFLATERAL STD 1 LEVEL CONSTRUCTFDAStart: 07-25-2020 Fusion, spine, lumbar, XLIFOrthopaedic bone screw, non-bioabsorbable, non-sterile+[id number] FDAStart: 20-31-7950Ypqkju, spine, lumbar, XLIFBone- screw internal spinal fixation system, non-sterile+[id number] FDAStart: 30-17-6389Gsuoti, spine, lumbar, XLIFSTRATOFUSE DBM 10CCFDAStart: 07-25-2020 Fusion, spine, lumbar, XLIFTIMBERLINE INTERBODYFDAStart: 48-45-1470Hkozzm, spine, lumbar, XLIFSpinal fusion graft kit ()[id number] FDAStart: 65-86-2678Txvggq, spine, lumbar, XLIFBone-screw internal spinal fixation system, non-sterile+[id number] FDAStart: 39-92-8520Tffxan, spine, lumbar, XLIFLATERAL STD 1 LEVEL CONSTRUCTFDA Start: 52-16-1013Trjdet, spine, lumbar, XLIFSTRATOFUSE DBM 10CCFDAStart: 10-73-6086Qgcsnl, spine, lumbar, XLIFTIMBERLINE INTERBODYFDAStart: 07-25-2020 Fusion, spine, lumbar, XLIFLATERAL STD 1 LEVEL CONSTRUCTFDAStart: 07-25-2020 Fusion, spine, lumbar, XLIFSTRATOFUSE DBM 10CCFDAStart: 23-00-7584Gienkg, spine, lumbar, XLIFTIMBERLINE INTERBODYFDAStart: 36-43-0547Hafadd, spine, lumbar, XLIF LATERAL STD 1 LEVEL CONSTRUCTFDAStart: 96-79-3937Abnwde, spine, lumbar, XLIF STRATOFUSE DBM 10CCFDAStart: 92-82-1139Wtqmkn, spine, lumbar, XLIFTIMBERLINE INTERBODYFDAStart: 25-90-4200Ktmvcv, spine, lumbar, XLIFLATERAL STD 1 LEVEL CONSTRUCTFDAStart: 45-53-5786Ukasts, spine, lumbar, XLIFSTRATOFUSE DBM 10CCFDA Start: 46-90-3643Seobtc, spine, lumbar, XLIFTIMBERLINE INTERBODYFDAStart: 44-41-4544Btuvvx, spine, lumbar, XLIFLATERAL STD 1 LEVEL CONSTRUCTFDAStart: 69-21-5443Vamdfs, spine, lumbar, XLIFSTRATOFUSE DBM 10CCFDAStart: 07-25-2020 Fusion, spine, lumbar, XLIFTIMBERLINE INTERBODYFDAStart: 78-69-0112Dwelbn, spine, lumbar, XLIFLATERAL STD 1 LEVEL CONSTRUCTFDAStart: 06-92-7987Jovfcj, spine, lumbar, XLIFSTRATOFUSE DBM 10CCFDAStart: 41-53-6616Jwbozu, spine, lumbar, XLIFTIMBERLINE INTERBODYFDAStart: 10-30-9085Pipcza, spine, lumbar, XLIFLATERAL STD 1 LEVEL CONSTRUCTFDAStart: 61-56-7951Qlsvja, spine, lumbar, XLIFSTRATOFUSE DBM 10CCFDAStart: 62-92-4285Wcjwze, spine, lumbar, XLIFTIMBERLINE INTERBODYFDA Start: 66-38-4212Ijyqxp, spine, lumbar, XLIFLATERAL STD 1 LEVEL CONSTRUCTFDA Start: 91-30-6567Ehcuti, spine, lumbar, XLIFSTRATOFUSE DBM 10CCFDAStart: 79-21-3367Pggukp, spine, lumbar, XLIFTIMBERLINE INTERBODYFDAStart: 07-25-2020 Fusion, spine, lumbar, XLIFLATERAL STD 1 LEVEL CONSTRUCTFDAStart: 07-25-2020 Fusion, spine, lumbar, XLIFSTRATOFUSE DBM 10CCFDAStart: 54-50-9441Bnakrj, spine, lumbar, XLIFTIMBERLINE INTERBODYFDAStart: 97-32-5217Kxxwpj, spine, lumbar, XLIF LATERAL STD 1 LEVEL CONSTRUCTFDAStart: 08-12-2138Gmybtn, spine, lumbar, XLIF STRATOFUSE DBM 10CCFDAStart: 29-48-3331Iymlen, spine, lumbar, XLIFTIMBERLINE INTERBODYFDAStart: 85-36-2038Zbtnwf, spine, lumbar, XLIFLATERAL STD 1 LEVEL CONSTRUCTFDAStart: 26-55-3848Eprjwi, spine, lumbar, XLIFSTRATOFUSE DBM 10CCFDA Start: 72-60-6790Iulmrd, spine, lumbar, XLIFTIMBERLINE INTERBODYFDAStart: 89-82-9205Ucvuka, spine, lumbar, XLIFLATERAL STD 1 LEVEL CONSTRUCTFDAStart: 75-27-1400Wczzey, spine, lumbar, XLIFSTRATOFUSE DBM 10CCFDAStart: 07-25-2020 Fusion, spine, lumbar, XLIFTIMBERLINE INTERBODYFDAStart: 47-79-4187Syhfgn, spine, lumbar, XLIFLATERAL STD 1 LEVEL CONSTRUCTFDAStart: 93-82-5209Alewjn, spine, lumbar, XLIFSTRATOFUSE DBM 10CCFDAStart: 74-49-1578Utvtzs, spine, lumbar, XLIFTIMBERLINE INTERBODYFDAStart: 77-05-7463Eiicvm, spine, lumbar, XLIFLATERAL STD 1 LEVEL CONSTRUCTFDAStart: 67-33-4550Ymeffg, spine, lumbar, XLIFSTRATOFUSE DBM 10CCFDAStart: 87-89-4875Wbhely, spine, lumbar, XLIFTIMBERLINE INTERBODYFDA Start: 21-16-6245Mmpdys, spine, lumbar, XLIFLATERAL STD 1 LEVEL CONSTRUCTFDA Start: 38-04-0718Imjlks, spine, lumbar, XLIFSTRATOFUSE DBM 10CCFDAStart: 95-29-6987Agdyiv, spine, lumbar, XLIFTIMBERLINE INTERBODYFDAStart: 07-25-2020 Fusion, spine, lumbar, XLIFLATERAL STD 1 LEVEL CONSTRUCTFDAStart: 07-25-2020 Fusion, spine, lumbar, XLIFSTRATOFUSE DBM 10CCFDAStart: 62-42-5666Rlumyy, spine, lumbar, XLIFTIMBERLINE INTERBODYFDAStart: 49-10-4355Jzmkxr, spine, lumbar, XLIF LATERAL STD 1 LEVEL CONSTRUCTFDAStart: 14-41-7816Gadcul, spine, lumbar, XLIF STRATOFUSE DBM 10CCFDAStart: 27-55-4565Plielu, spine, lumbar, XLIFTIMBERLINE INTERBODYFDAStart: 18-87-3686Cfybjg, spine, lumbar, XLIFLATERAL STD 1 LEVEL CONSTRUCTFDAStart: 15-27-5348Nwetzw, spine, lumbar, XLIFSTRATOFUSE DBM 10CCFDA Start: 65-88-0941Jiubiy, spine, lumbar, XLIFTIMBERLINE INTERBODYFDAStart: 48-36-5504Ueawmf, spine, lumbar, XLIFLATERAL STD 1 LEVEL CONSTRUCTFDAStart: 78-08-6138Hoouyt, spine, lumbar, XLIFSTRATOFUSE DBM 10CCFDAStart: 07-25-2020 Fusion, spine, lumbar, XLIFTIMBERLINE INTERBODYFDAStart: 50-94-5442Oragte, spine, lumbar, XLIFLATERAL STD 1 LEVEL CONSTRUCTFDAStart: 84-89-3917Hnwlgx, spine, lumbar, XLIFSTRATOFUSE DBM 10CCFDAStart: 08-97-9066Bagady, spine, lumbar, XLIFTIMBERLINE INTERBODYFDAStart: 62-04-8987Onunde, spine, lumbar, XLIFLATERAL STD 1 LEVEL CONSTRUCTFDAStart: 69-71-0567Eefjzu, spine, lumbar, XLIFSTRATOFUSE DBM 10CCFDAStart: 89-92-0690Cnmzpp, spine, lumbar, XLIFTIMBERLINE INTERBODYFDA Start: 31-96-1038Fwjlmd, spine, lumbar, XLIFLATERAL STD 1 LEVEL CONSTRUCTFDA Start: 42-52-9045Ylnwba, spine, lumbar, XLIFSTRATOFUSE DBM 10CCFDAStart: 63-76-1308Mgzftb, spine, lumbar, XLIFTIMBERLINE INTERBODYFDAStart: 07-25-2020 Fusion, spine, lumbar, XLIFLATERAL STD 1 LEVEL CONSTRUCTFDAStart: 07-25-2020 Fusion, spine, lumbar, XLIFSTRATOFUSE DBM 10CCFDAStart: 84-37-8929Tsooir, spine, lumbar, XLIFTIMBERLINE INTERBODYFDAStart: 63-78-0861Zmlqpo, spine, lumbar, XLIF LATERAL STD 1 LEVEL CONSTRUCTFDAStart: 26-17-4873Kyfuni, spine, lumbar, XLIF STRATOFUSE DBM 10CCFDAStart: 94-80-2431Lroham, spine, lumbar, XLIFTIMBERLINE INTERBODYFDAStart: 18-05-6523Zijhyt, spine, lumbar, XLIFLATERAL STD 1 LEVEL CONSTRUCTFDAStart: 27-49-3107Qgdlak, spine, lumbar, XLIFSTRATOFUSE DBM 10CCFDA Start: 26-29-6689Fgareu, spine, lumbar, XLIFTIMBERLINE INTERBODYFDAStart: 57-12-3484Oifdkk, spine, lumbar, XLIFLATERAL STD 1 LEVEL CONSTRUCTFDAStart: 18-87-9169Vgecrt, spine, lumbar, XLIFSTRATOFUSE DBM 10CCFDAStart: 07-25-2020 Fusion, spine, lumbar, XLIFTIMBERLINE INTERBODYFDAStart: 61-87-4523Xuqaqf, spine, lumbar, XLIFLATERAL STD 1 LEVEL CONSTRUCTFDAStart: 40-75-3137Ooywke, spine, lumbar, XLIFSTRATOFUSE DBM 10CCFDAStart: 70-99-2526Latsyw, spine, lumbar, XLIFTIMBERLINE INTERBODYFDAStart: 57-17-8832Pmdhhd, spine, lumbar, XLIFLATERAL STD 1 LEVEL CONSTRUCTFDAStart: 44-47-7447Kxcusq, spine, lumbar, XLIFSTRATOFUSE DBM 10CCFDAStart: 25-67-9710Aewuyc, spine, lumbar, XLIFTIMBERLINE INTERBODYFDA Start: 89-50-2429Hxubuq, spine, lumbar, XLIFLATERAL STD 1 LEVEL CONSTRUCTFDA Start: 30-71-6256Lecihz, spine, lumbar, XLIFSTRATOFUSE DBM 10CCFDAStart: 10-94-5602Itrecd, spine, lumbar, XLIFTIMBERLINE INTERBODYFDAStart: 07-25-2020 Fusion, spine, lumbar, XLIFLATERAL STD 1 LEVEL CONSTRUCTFDAStart: 07-25-2020 Fusion, spine, lumbar, XLIFSTRATOFUSE DBM 10CCFDAStart: 21-89-1226Qvfnrf, spine, lumbar, XLIFTIMBERLINE INTERBODYFDAStart: 70-76-1233Puwzuw, spine, lumbar, XLIF LATERAL STD 1 LEVEL CONSTRUCTFDAStart: 99-93-1504Mfvojz, spine, lumbar, XLIF STRATOFUSE DBM 10CCFDAStart: 68-32-3928Assnoy, spine, lumbar, XLIFTIMBERLINE INTERBODYFDAStart: 08-26-0087Wzutco, spine, lumbar, XLIFLATERAL STD 1 LEVEL CONSTRUCTFDAStart: 53-79-1538Zshemc, spine, lumbar, XLIFSTRATOFUSE DBM 10CCFDA Start: 18-46-7516Susmtb, spine, lumbar, XLIFTIMBERLINE INTERBODYFDAStart: 25-89-6947Kusxso, spine, lumbar, XLIFLATERAL STD 1 LEVEL CONSTRUCTFDAStart: 13-60-9820Jnbtdi, spine, lumbar, XLIFSTRATOFUSE DBM 10CCFDAStart: 07-25-2020 Fusion, spine, lumbar, XLIFTIMBERLINE INTERBODYFDAStart: 24-59-1589Ivlhth, spine, lumbar, XLIFLATERAL STD 1 LEVEL CONSTRUCTFDAStart: 59-25-2713Lwqpxn, spine, lumbar, XLIFSTRATOFUSE DBM 10CCFDAStart: 97-54-3225Vixqnl, spine, lumbar, XLIFTIMBERLINE INTERBODYFDAStart: 06-75-9070Gwgkrc, spine, lumbar, XLIFLATERAL STD 1 LEVEL CONSTRUCTFDAStart: 84-72-6765Mtdqel, spine, lumbar, XLIFSTRATOFUSE DBM 10CCFDAStart: 35-96-6937Hbnflp, spine, lumbar, XLIFTIMBERLINE INTERBODYFDA Start: 06-78-1843Rqnbnr, spine, lumbar, XLIFLATERAL STD 1 LEVEL CONSTRUCTFDA Start: 93-68-2203Sjwymk, spine, lumbar, XLIFSTRATOFUSE DBM 10CCFDAStart: 11-62-5780Yatlms, spine, lumbar, XLIFTIMBERLINE INTERBODYFDAStart: 07-25-2020 Fusion, spine, lumbar, XLIFLATERAL STD 1 LEVEL CONSTRUCTFDAStart: 07-25-2020 Fusion, spine, lumbar, XLIFSTRATOFUSE DBM 10CCFDAStart: 87-37-9128Krzwmy, spine, lumbar, XLIFTIMBERLINE INTERBODYFDAStart: 04-39-6005Nzmzen, spine, lumbar, XLIF LATERAL STD 1 LEVEL CONSTRUCTFDAStart: 39-91-8808Rgybkh, spine, lumbar, XLIF STRATOFUSE DBM 10CCFDAStart: 86-20-3246Ltitzn, spine, lumbar, XLIFTIMBERLINE INTERBODYFDAStart: 66-69-8447Ypfdnz, spine, lumbar, XLIFLATERAL STD 1 LEVEL CONSTRUCTFDAStart: 01-33-9486Nnybun, spine, lumbar, XLIFSTRATOFUSE DBM 10CCFDA Start: 49-17-0383Ynfcha, spine, lumbar, XLIFTIMBERLINE INTERBODYFDAStart: 64-34-3411Xplrxa, spine, lumbar, XLIFLATERAL STD 1 LEVEL CONSTRUCTFDAStart: 35-57-8482Ptaiyy, spine, lumbar, XLIFSTRATOFUSE DBM 10CCFDAStart: 07-25-2020 Fusion, spine, lumbar, XLIFTIMBERLINE INTERBODYFDAStart: 92-10-9415Qxarei, spine, lumbar, XLIFLATERAL STD 1 LEVEL CONSTRUCTFDAStart: 81-48-6027Kqqzsa, spine, lumbar, XLIFSTRATOFUSE DBM 10CCFDAStart: 26-62-4439Qnfswh, spine, lumbar, XLIFTIMBERLINE INTERBODYFDAStart: 74-38-5475Brcrsi, spine, lumbar, XLIFLATERAL STD 1 LEVEL CONSTRUCTFDAStart: 79-85-8753Reywvu, spine, lumbar, XLIFSTRATOFUSE DBM 10CCFDAStart: 23-14-4838Tyspsp, spine, lumbar, XLIFTIMBERLINE INTERBODYFDA Start: 82-57-9778Bfruhx, spine, lumbar, XLIFLATERAL STD 1 LEVEL CONSTRUCTFDA Start: 51-91-6863Jrijgk, spine, lumbar, XLIFSTRATOFUSE DBM 10CCFDAStart: 53-64-9903Veujbm, spine, lumbar, XLIFTIMBERLINE INTERBODYFDAStart: 07-25-2020 Fusion, spine, lumbar, XLIFLATERAL STD 1 LEVEL CONSTRUCTFDAStart: 07-25-2020 Fusion, spine, lumbar, XLIFSTRATOFUSE DBM 10CCFDAStart: 41-16-5757Uhbkht, spine, lumbar, XLIFTIMBERLINE INTERBODYFDAStart: 71-72-1348Qahghx, spine, lumbar, XLIF LATERAL STD 1 LEVEL CONSTRUCTFDAStart: 95-93-2468Dupwta, spine, lumbar, XLIF STRATOFUSE DBM 10CCFDAStart: 50-41-4704Ayfcey, spine, lumbar, XLIFTIMBERLINE INTERBODYFDAStart: 77-52-2076Emthyy, spine, lumbar, XLIFLATERAL STD 1 LEVEL CONSTRUCTFDAStart: 18-97-0623Mtwdoz, spine, lumbar, XLIFSTRATOFUSE DBM 10CCFDA Start: 93-42-5487Thwybs, spine, lumbar, XLIFTIMBERLINE INTERBODYFDAStart: [id number], [id number]: 08-11-2013 End: 08-33-2650Orqs-eluting coronary artery stent, rab-tfxdjqncamqeo-jkbbswd-coated()[id number] FDAStart: 35-35-9893Hornsfh artery closure plug/patch, synthetic polymer()[id number] FDAStart: 96-12-6842Dgd Needle, Diabetic (Ulticare Pen Needle) 31 gauge x 3/16 needleStart: 16-73-3490Pwl Needle, Diabetic (Ulticare Pen Needle) 31 gauge x 3/16 needleStart: 05-13-2024 End: 55-52-7259Ibn Needle, Diabetic (Ulticare Pen Needle) 31 gauge x 3/16 needleStart: 39-45-4296Mry Needle, Diabetic (Ulticare Pen Needle) 31 gauge x 3/16 needleStart: 05-13-2024 End: 80-97-9083Nrn Needle, Diabetic (Ulticare Pen Needle) 31 gauge x 3/16 needleStart: 71-24-0191Fjc Needle, Diabetic (Ulticare Pen Needle) 31 gauge x 3/16 needleStart: 05-13-2024 End: 09-95-7633Nih Needle, Diabetic (Ulticare Pen Needle) 31 gauge x 3/16 needleStart: 05-23-3937Unl Needle, Diabetic (Ulticare Pen Needle) 31 gauge x 3/16 needleStart: 05-13-2024 End: 33-66-1035Qug Needle, Diabetic (Ulticare Pen Needle) 31 gauge x 3/16 needleStart: 74-40-2474Bvx Needle, Diabetic (Ulticare Pen Needle) 31 gauge x 3/16 needleStart: 05-13-2024 End: 30-71-4464Sym Needle, Diabetic (Ulticare Pen Needle) 31 gauge x 3/16 needleStart: 40-78-2458Tnp Needle, Diabetic (Ulticare Pen Needle) 31 gauge x 3/16 needleStart: 05-13-2024 End: 13-45-2686Ryt Needle, Diabetic (Ulticare Pen Needle) 31 gauge x 3/16 needleStart: 63-87-1026Bnv Needle, Diabetic (Ulticare Pen Needle) 31 gauge x 3/16 needleStart: 05-13-2024 End: 63-63-3203Dmr Needle, Diabetic (Ulticare Pen Needle) 31 gauge x 3/16 needleStart: 05-13-2024 End: 46-69-4186Aay Needle, Diabetic (Ulticare Pen Needle) 31 gauge x 3/16 needleStart: 23-04-1876Hfo Needle, Diabetic 31 gauge x 5/16 needleStart: 19-24-0739Uuh Needle, Diabetic (Ulticare Pen Needle) 31 gauge x 3/16 needle Start: 05-13-2024 End: 05-52-2548Pgc Needle, Diabetic (Ulticare Pen Needle) 31 gauge x 3/16 needleStart: 05-13-2024 End: 20-32-4919Oja Needle, Diabetic 31 gauge x 5/16 needleStart: 09-12-2024 End: 06-33-1181Trd Needle, Diabetic (Ulticare Pen Needle) 31 gauge x 3/16 needleStart: 62-68-4013Enq Needle, Diabetic 31 gauge x 5/16 needleStart: 31-00-2011Swx Needle, Diabetic (Ulticare Pen Needle) 31 gauge x 3/16 needle Start: 05-13-2024 End: 01-53-3681Omk Needle, Diabetic (Ulticare Pen Needle) 31 gauge x 3/16 needleStart: 05-13-2024 End: 80-49-4628Pky Needle, Diabetic 31 gauge x 5/16 needleStart: 09-12-2024 End: 54-61-0148Uai Needle, Diabetic (Ulticare Pen Needle) 31 gauge x 3/16 needleStart: 85-68-6943Ggu Needle, Diabetic 31 gauge x 5/16 needleStart: 91-53-2733Xvd Needle, Diabetic (Ulticare Pen Needle) 31 gauge x 3/16 needle Start: 05-13-2024 End: 68-37-3483Sqk Needle, Diabetic (Ulticare Pen Needle) 31 gauge x 3/16 needleStart: 05-13-2024 End: 46-41-9941Zgc Needle, Diabetic 31 gauge x 5/16 needleStart: 09-12-2024 End: 14-34-3866Zzc Needle, Diabetic (Ulticare Pen Needle) 31 gauge x 3/16 needleStart: 80-42-5236Azo Needle, Diabetic 31 gauge x 5/16 needleStart: 94-60-9492Zqm Needle, Diabetic (Ulticare Pen Needle) 31 gauge x 3/16 needle Start: 05-13-2024 End: 05-60-1358Ruw Needle, Diabetic (Ulticare Pen Needle) 31 gauge x 3/16 needleStart: 05-13-2024 End: 21-16-7938Gwo Needle, Diabetic 31 gauge x 5/16 needleStart: 09-12-2024 End: 40-24-8664Gpk Needle, Diabetic (Ulticare Pen Needle) 31 gauge x 3/16 needleStart: 08-40-3899Hfl Needle, Diabetic 31 gauge x 5/16 needleStart: 56-69-5645Nwg Needle, Diabetic (Ulticare Pen Needle) 31 gauge x 3/16 needle Start: 05-13-2024 End: 03-45-7336Bzy Needle, Diabetic (Ulticare Pen Needle) 31 gauge x 3/16 needleStart: 05-13-2024 End: 02-54-1133Jmu Needle, Diabetic 31 gauge x 5/16 needleStart: 09-12-2024 End: 75-41-5940Abg Needle, Diabetic (Ulticare Pen Needle) 31 gauge x 3/16 needleStart: 62-24-8976Dov Needle, Diabetic 31 gauge x 5/16 needleStart: 49-89-6168Lnd Needle, Diabetic (Ulticare Pen Needle) 31 gauge x 3/16 needle Start: 05-13-2024 End: 90-55-0550Ljl Needle, Diabetic (Ulticare Pen Needle) 31 gauge x 3/16 needleStart: 05-13-2024 End: 64-37-8355Gbm Needle, Diabetic 31 gauge x 5/16 needleStart: 09-12-2024 End: 88-04-1235Uqc Needle, Diabetic (Ulticare Pen Needle) 31 gauge x 3/16 needleStart: 74-65-3945Fmo Needle, Diabetic 31 gauge x 5/16 needleStart: 11-63-9077Pwy Needle, Diabetic (Ulticare Pen Needle) 31 gauge x 3/16 needle Start: 05-13-2024 End: 87-62-2289Gcj Needle, Diabetic (Ulticare Pen Needle) 31 gauge x 3/16 needleStart: 05-13-2024 End: 70-33-0946Owp Needle, Diabetic 31 gauge x 5/16 needleStart: 09-12-2024 End: 71-11-2591Rci Needle, Diabetic (Ulticare Pen Needle) 31 gauge x 3/16 needleStart: 85-21-6381Nsn Needle, Diabetic 31 gauge x 5/16 needleStart: 31-29-0318Kil Needle, Diabetic (Ulticare Pen Needle) 31 gauge x 3/16 needle Start: 05-13-2024 End: 42-16-1713Qbb Needle, Diabetic (Ulticare Pen Needle) 31 gauge x 3/16 needleStart: 05-13-2024 End: 83-94-8381Aoz Needle, Diabetic 31 gauge x 5/16 needleStart: 09-12-2024 End: 83-48-1959Fsp Needle, Diabetic (Ulticare Pen Needle) 31 gauge x 3/16 needleStart: 32-49-6408Sex Needle, Diabetic 31 gauge x 5/16 needleStart: 17-72-3096Axu Needle, Diabetic (Ulticare Pen Needle) 31 gauge x 3/16 needle Start: 05-13-2024 End: 84-88-7246Jdy Needle, Diabetic (Ulticare Pen Needle) 31 gauge x 3/16 needleStart: 05-13-2024 End: 46-59-1367Hbf Needle, Diabetic 31 gauge x 5/16 needleStart: 09-12-2024 End: 60-68-2352Hyz Needle, Diabetic (Ulticare Pen Needle) 31 gauge x 3/16 needleStart: 93-73-3543Jaf Needle, Diabetic 31 gauge x 5/16 needleStart: 27-16-9574Umk Needle, Diabetic (Ulticare Pen Needle) 31 gauge x 3/16 needle Start: 05-13-2024 End: 59-96-8923Pkd Needle, Diabetic (Ulticare Pen Needle) 31 gauge x 3/16 needleStart: 05-13-2024 End: 37-17-0512Toe Needle, Diabetic 31 gauge x 5/16 needleStart: 09-12-2024 End: 36-04-3495Kla Needle, Diabetic (Ulticare Pen Needle) 31 gauge x 3/16 needleStart: 85-21-2012Ulq Needle, Diabetic 31 gauge x 5/16 needleStart: 24-51-5597Lji Needle, Diabetic (Ulticare Pen Needle) 31 gauge x 3/16 needle Start: 05-13-2024 End: 52-22-1405Xod Needle, Diabetic (Ulticare Pen Needle) 31 gauge x 3/16 needleStart: 05-13-2024 End: 97-89-0529Gzw Needle, Diabetic 31 gauge x 5/16 needleStart: 09-12-2024 End: 41-93-1840Lyq Needle, Diabetic (Ulticare Pen Needle) 31 gauge x 3/16 needleStart: 57-49-4544Hol Needle, Diabetic 31 gauge x 5/16 needleStart: 37-56-8070Hlm Needle, Diabetic (Ulticare Pen Needle) 31 gauge x 3/16 needle Start: 05-13-2024 End: 68-62-5477Urb Needle, Diabetic (Ulticare Pen Needle) 31 gauge x 3/16 needleStart: 05-13-2024 End: 41-08-1707Zka Needle, Diabetic 31 gauge x 5/16 needleStart: 09-12-2024 End: 03-22-9311Alq Needle, Diabetic (Ulticare Pen Needle) 31 gauge x 3/16 needleStart: 31-90-7897Fgx Needle, Diabetic 31 gauge x 5/16 needleStart: 27-40-9561Ohg Needle, Diabetic (Ulticare Pen Needle) 31 gauge x 3/16 needle Start: 05-13-2024 End: 65-28-2131Rra Needle, Diabetic (Ulticare Pen Needle) 31 gauge x 3/16 needleStart: 05-13-2024 End: 54-64-8178Xam Needle, Diabetic 31 gauge x 5/16 needleStart: 09-12-2024 End: 58-53-0749Wex Needle, Diabetic (Ulticare Pen Needle) 31 gauge x 3/16 needleStart: 93-11-0075Smg Needle, Diabetic 31 gauge x 5/16 needleStart: 53-98-5818Ksw Needle, Diabetic (Ulticare Pen Needle) 31 gauge x 3/16 needle Start: 05-13-2024 End: 05-32-2477Zmb Needle, Diabetic (Ulticare Pen Needle) 31 gauge x 3/16 needleStart: 05-13-2024 End: 72-42-7437Xqb Needle, Diabetic 31 gauge x 5/16 needleStart: 09-12-2024 End: 38-15-6385Ane Needle, Diabetic (Ulticare Pen Needle) 31 gauge x 3/16 needleStart: 98-26-5271Unu Needle, Diabetic 31 gauge x 5/16 needleStart: 76-77-3093Yda Needle, Diabetic (Ulticare Pen Needle) 31 gauge x 3/16 needle Start: 05-13-2024 End: 20-78-5516Fem Needle, Diabetic (Ulticare Pen Needle) 31 gauge x 3/16 needleStart: 05-13-2024 End: 70-71-9503Mer Needle, Diabetic 31 gauge x 5/16 needleStart: 09-12-2024 End: 44-84-7639Lnu Needle, Diabetic (Ulticare Pen Needle) 31 gauge x 3/16 needleStart: 15-82-3059Ejp Needle, Diabetic 31 gauge x 5/16 needleStart: 07-29-5541Tvz Needle, Diabetic (Ulticare Pen Needle) 31 gauge x 3/16 needle Start: 05-13-2024 End: 95-74-9516Lev Needle, Diabetic (Ulticare Pen Needle) 31 gauge x 3/16 needleStart: 05-13-2024 End: 86-90-1178Clj Needle, Diabetic 31 gauge x 5/16 needleStart: 09-12-2024 End: 01-49-1857Jso Needle, Diabetic (Ulticare Pen Needle) 31 gauge x 3/16 needleStart: 62-12-7752Qwq Needle, Diabetic 31 gauge x 5/16 needleStart: 81-22-4794Vib Needle, Diabetic (Ulticare Pen Needle) 31 gauge x 3/16 needle Start: 05-13-2024 End: 23-78-6662Chd Needle, Diabetic (Ulticare Pen Needle) 31 gauge x 3/16 needleStart: 05-13-2024 End: 69-30-6918Oql Needle, Diabetic 31 gauge x 5/16 needleStart: 09-12-2024 End: 57-60-1391Nhl Needle, Diabetic (Ulticare Pen Needle) 31 gauge x 3/16 needleStart: 87-04-6387Hif Needle, Diabetic 31 gauge x 5/16 needleStart: 32-92-1893Kgz Needle, Diabetic (Ulticare Pen Needle) 31 gauge x 3/16 needle Start: 05-13-2024 End: 72-19-3996Qbb Needle, Diabetic (Ulticare Pen Needle) 31 gauge x 3/16 needleStart: 05-13-2024 End: 59-72-7529Gpr Needle, Diabetic 31 gauge x 5/16 needleStart: 09-12-2024 End: 09-12-2024 Goals DatePatient GoalDesired Activity/State Functional Status UdxhHjbyukgwzqApdkghNsktsvys02-17-4222Ieaqgwc Health Questionnaire 2 item (PHQ- 2) [Reported][facility] Clinical Notes 12-31-2014 to 10-11-2025 Note Date & [id number] Telephone encounter Note* Telephone Encounter - Margarita [...] Pt would like a call back at [phone] to discuss this. [facility] HealthcareGywpuojswa31-78-2214 Miscellaneous Notes* Telephone Encounter - Margarita Esposito [...] Pt would like a call back at [phone] to discuss this. documented in this encounterCitizens Memorial HealthcareZannbquxlc16-24-3669 History of Present illness Narrative* Shaina Munroe, [...] if they have any problems or questions. Rtia Cobb control is stable overall. 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 ([facility]) Long-term insulin use ([facility]) Spondylolisthesis at L3-L4 level S/P laparoscopic cholecystectomy Other hammer toe(s) (acquired), left foot Chronic foot ulcer ([facility]) Carpal tunnel syndrome of right wrist Class 2 severe obesity with serious comorbidity and body mass index (BMI) of 35.0 to 35.9 in adult ([facility]) Type 2 diabetes mellitus with both eyes affected by mild nonproliferative retinopathy without macular edema, with long-term current use of insulin ([facility]) Social History Tobacco Use Smoking status: Never [...] daily 50 units) (100 UNIT/ML SOPN) Labs [facility] HEMOGLOBIN A1C/HEMOGLOBIN.TOTAL:MFR:PT:BLD:QN: 8.1 Outpatient prescription Medication marked [...] Charcot's joint arthropathy (HCC) Long-term insulin use ([facility]) Class 2 severe obesity with serious comorbidity and body mass index (BMI) of 35.0 to 35.9 in adult ([facility]) Type 2 diabetes mellitus with both eyes affected by mild nonproliferative retinopathy without macular edema, with long-term current use of insulin ([facility]) Follow up in about 3 months (around [...] PO) Take by mouth CONTINUOUS BLOOD GLUC AIRFIELD SERVICES OFFICER (DEXCOM G7 AIRFIELD SERVICES OFFICER) DEVICE USE DIRECTED CONTINUOUS BLOOD GLUC SENSOR [...] with the patient today. documented in this encounterCitizens Memorial HealthcareDhznfujswn10-39-1446 Evaluation note* Diagnosis Onset Date Resolution Status Admit Date Chronic pain acuteJuly 2024 8:03amSacroiliitis, not elsewhere classifiedacuteJuly 2024 8:03amTrochanteric bursitisacuteJuly 2024 8:03am [facility] Work Phone: 1(376) 798-116907-02-2025 Evaluation note* Diagnosis Onset Date Resolution Status Admit Date Chronic pain acuteJuly 2024 8:03amSacroiliitis, not elsewhere classifiedacuteJuly 2024 8:03amTrochanteric bursitisacuteJuly 2024 8:03amChronic painacuteJuly 2024 9:03amSacroiliitis, not elsewhere classifiedacuteJuly 2024 9:03amTrochanteric bursitisacuteJuly 2024 9:03am [facility] Work Phone: 1(147) 382-296807-02-2025 Evaluation note* Diagnosis Onset Date Resolution Status Admit Date Chronic pain acuteJuly 2024 8:03amSacroiliitis, not elsewhere classifiedacuteJuly 2024 8:03amTrochanteric bursitisacuteJuly 2024 8:03amChronic painacuteJuly 2024 9:03amSacroiliitis, not elsewhere classifiedacuteJuly 2024 9:03amTrochanteric bursitisacuteJuly 2024 9:03amDiabetic foot ulcer associated with type 2 diabetes mellitus, with fat layeacuteAugust 2024 7:36amMRSA bacteremiaacuteAugust 2024 7:36amOral thrushacuteAugust 2024 7:36am [facility] Work Phone: 1(656) 615-529106-16-2025 History of Present illness Narrative* Shaina Munroe [...] (BMI) of 35.0 to 35.9 in adult ([facility]) Type 2 diabetes mellitus with both eyes affected by mild nonproliferative retinopathy without macular edema, with long-term current use of insulin ([facility]) Social History Tobacco Use Smoking status: Never [...] units dinner (500 UNIT/ML SOPN) -Discontinued Labs [facility] HEMOGLOBIN A1C/HEMOGLOBIN.TOTAL:MFR:PT:BLD:QN: 8.1 Outpatient prescription Medication marked as long-term Patient taking a medication differently The ASCVD Risk score ([place] DK, et al., 2019) failed to calculate [...] KWIKPEN) 100 UNIT/ML injection insulin pen needle ([employer] Unibluebird bioe Pentips) 31G X 8 mm misc Other Relevant Orders POCT glycosylated hemoglobin (Hb A1C) docked device (Completed) 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) - Primary Long-term insulin use ([facility]) Class 2 severe obesity with serious comorbidity and body mass index (BMI) of 35.0 to 35.9 in adult ([facility]) Type 2 diabetes mellitus with both eyes affected by mild nonproliferative retinopathy without macular edema, with long-term current use of insulin ([facility]) Follow up in about 3 months (around [...] PO) Take by mouth CONTINUOUS BLOOD GLUC AIRFIELD SERVICES OFFICER (DEXCOM G7 AIRFIELD SERVICES OFFICER) DEVICE USE DIRECTED CONTINUOUS BLOOD GLUC SENSOR [...] PENTIPS) 31G X 8 MM MISC Drug [place] Unifine Pentips 31G X 8 MMmisc Injection subcutaneous tid USE DIRECTED Discontinued Medications No medications on file I have reviewed and reconciled the history and medication list with the patient today. documented in this encounterCitizens Memorial HealthcareHbecfnnxso27-50-7263 Evaluation note* Diagnosis Onset Date Resolution Status [...] back painacuteJuly 2024 8:03amTrochanteric bursitisacuteJuly 2024 8:03am [facility] Work Phone: 1(605) 819-431002-19-2025 Evaluation note* Diagnosis Onset Date Resolution Status [...] 06, 2025 7:41amSpondylolisthesis, lumbar regionacuteApril 2024 7:41am [facility] Work Phone: 1([phone]) 678-585702-10-2025 Evaluation note* Author France Carlson [facility] 2024 11:30amThe above note written by ITZ Teresa acting as human recorder, note dictated by Dr. Charan Casey. [facility] Work Phone: 1(436) 771-300302-10-2025 Telephone encounter Note* Telephone Encounter - Kati Clint - 01/09/2025 1:09 PM EST Pt's spouse called to ask if Dr. Merritt has any dexcom G7 sensors. She has been without for over aweek. Her prescription has been delayed due to insurance issues, She is having an injection tomorrow and is worried about her bg readings. [facility] [id number] Miscellaneous Notes* Telephone Encounter - Kati Jaramillo - 01/09/2025 1:09 PM EST Pt's spouse called to ask if Dr. Merritt has any dexcom G7 sensors. She has been without for over aweek. Her prescription has been delayed due to insurance issues, She is having an injection tomorrow and is worried about her bg readings. documented in this encounterCitizens Memorial HealthcareUinvnqwodh06-67-2844 Evaluation note* Author France Carlson [facility] 2024 10:30amThe above note written by ITZ Teresa acting as human recorder, note dictated by Dr. Charan Casey. [facility] Work Phone: 1(481) 542-863511-20-2024 Evaluation note* Diagnosis Onset Date Resolution Status Admit Date Chronic pain acuteNovember 2023 8:01amOsteoarthritis of spine with radiculopathy, lumbar regionacuteNov2023 8:01amArthrosis of right acromioclavicular jointacuteNovember 2023 8:44amRotator cuff syndrome of right shoulder acuteNovember 2023 8:44amCoughacuteJanuary 2024 10:00amChronic pain acuteJanuary 2024 9:01amOsteoarthritis of spine with radiculopathy, lumbar regionacuteJanuary 2024 9:01am [facility] Work Phone: 1(357) 240-371711-20-2024 Evaluation note* Diagnosis Onset Date Resolution Status [...] of right shoulderacute December 29, 2024 7:33am [facility] Work Phone: 1(129) 831-203211-19-2024 History of Present illness Narrative* Shaina Munroe DO - 10/18/2024 8:35 PM ESTAssociated Problem(s): Type 2 diabetes mellitus with peripheral neuropathy ([facility]/HCC) During the appointment today all pertinent [...] Charcot's joint arthropathy (CMS/HCC) Long-term insulin use ([facility]) Class 2 severe obesity with serious comorbidity and body mass index (BMI) of 39.0 to 39.9 in adult ([facility]) Type 2 diabetes mellitus with both eyes affected by mild nonproliferative retinopathy without macular edema, with long-term current use of insulin ([facility]) Follow up in about 4 months (around 02/14/2025) for Recheck. Patient's Medications New Prescriptions No medications on file Previous Medications ALLOPURINOL (ZYLOPRIM) 100 MG TABLET Take 100 mg by mouth in the morning. ASPIRIN 81 MG CHEWABLE TABLET 1 (one) time each day at the same time. BENICAR 40 MG TABLET 1 (one) time each day at the same time. CONTINUOUS BLOOD GLUC AIRFIELD SERVICES OFFICER (DEXCOM G7 AIRFIELD SERVICES OFFICER) DEVICE USE DIRECTED CONTINUOUS BLOOD GLUC SENSOR [...] with the patient today. documented in this encounterCitizens Memorial [id number] [facility] Evaluation note* Diagnosis Onset Date Resolution Status Admit Date Chronic pain acuteOctober 2023 8:03amOsteoarthritis of spine with radiculopathy, lumbar regionacuteOctober 2023 8:03amSacroiliitis, not elsewhere classifiedacute September 12, 2024 8:03amChronic painacuteNovember 2023 8:01am Osteoarthritis of spine with radiculopathy, lumbar regionacuteNovember 2023 8:01am [facility] Work Phone: 1(158) 387-704910-14-2024 Evaluation note* Diagnosis Onset Date Resolution Status Admit Date Chronic pain acuteOctober 2023 8:03amOsteoarthritis of spine with radiculopathy, lumbar regionacuteOctober 2023 8:03amSacroiliitis, not elsewhere classifiedacute September 12, 2024 8:03amChronic painacuteNovember 2023 8:01am Osteoarthritis of spine with radiculopathy, lumbar regionacuteNovember 2023 8:01amArthrosis of right acromioclavicular jointacuteNovember 2023 8:44amRotator cuff syndrome of right shoulderacuteNov2023 8:44am [facility] Work Phone: 1(385) 857-162010-14-2024 Evaluation note* Diagnosis Onset Date Resolution Status Admit Date Chronic pain acuteOctober 2023 8:03amOsteoarthritis of spine with radiculopathy, lumbar regionacuteOctober 2023 8:03amSacroiliitis, not elsewhere classifiedacute September 12, 2024 8:03amChronic painacuteNovember 2023 8:01am Osteoarthritis of spine with radiculopathy, lumbar regionacuteNovember 2023 8:01amArthrosis of right acromioclavicular jointacuteNovember 2023 8:44amRotator cuff syndrome of right shoulderacuteNovember 2023 8:44am CoughacuteJanuary 2024 10:00am [facility] Work Phone: 1([phone]) 609-605509-26-2024 History of Present illness Narrative* Rosalinda Torres [...] remains way above target and due to Eckptnt-Iaajj-Whplr joints she has limited exercise capacity. Her [...] machine patient has been compliant with it. 4-Liieiks-Fpbhk-Tooth joint in the ankles status post recent [...] , Rfl: ergocalciferol (Vitamin D-2) 1.25 MG (13581 UT) capsule, Take 1 capsule (50,000 Units) [...] type, unspecified whether angina present, unspecified whether [place] or transplanted heart Follow Up In Cardiology [...] exam, discussion and plan. [facility]Bu[facility] Work Phone: 1(885) 752-221509-26-2024 Instructions* Patient Instructions* Enedina Isidro LPN - [...] Provided instructions on exercise. documented in this [facility] Work Phone: 1(675) 804-300407-02-2024 [facility] noteGeorgetown [facility]03-25-2024 History of Present illness Narrative* Rosalinda [...] She has orthopedic problems resulting from her Qtsuowd-Fcwjc-Yicdc disease. Her labs have been followed closely. [...] machine patient has been compliant with it. 0-Xvzreri-Rcjsg-Tooth joint in the ankles status post recent [...] , Rfl: ergocalciferol (Vitamin D-2) 1.25 MG (78006 UT) capsule, Take 1 capsule (50,000 Units) [...] type, unspecified whether angina present, unspecified whether [place] or transplanted heart Follow Up In Cardiology 2. Essential hypertension 3. 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 4. Hyperlipidemia, unspecified hyperlipidemia type 5. Obstructive sleep apnea syndrome 6. Class 2 obesity with body mass index (BMI) of 37.0 to 37.9 in adult, unspecified obesity type, unspecified whether serious comorbidity present 7. Insulin-requiring or dependent type II diabetes mellitus ([facility]) Scribe Attestation By signing my name below, [...] exam, discussion and plan. documented in this [facility] Work Phone: 1(964) 881-467803-25-2024 Instructions* Patient Instructions* Enedina Isidro LPN - [...] 6 m Same medications documented [facility]Bu[facility] Work Phone: 1([phone]) 393-775301-31-2024 Evaluation note* Encounter Date Diagnosis Assessment Notes [...] to call if she does not improve. [facility] Other 12-05-2023 Evaluation note* Encounter Date Diagnosis Assessment Notes Treatment Notes Treatment Clinical Notes Oct, Hyperlipidemia (ICD-10 - E78.5) [facility] Other 11-29-2023 Evaluation note* Encounter Date Diagnosis Assessment Notes Treatment Notes Treatment Clinical Notes Sep, Trochanteric bursitis of left hi p (ICD-10 - M70.62) [facility] Other 11-29-2023 Evaluation note* Encounter Date [...] Sep,OtherAbove note written by Willi Leiva MA, Corn [employer]. Edited and approved by Dr. Blas Ortiz MD. [facility] Other 11-22-2023 Evaluation note* Encounter Date [...] of symptoms occur by end of treatment. [facility] Other 11-20-2023 Evaluation note* Encounter Date Diagnosis Assessment Notes Treatment Notes Treatment Clinical Notes Sep, Cervical spondylosis without mye lopathy (ICD-10 - M47.812) [facility] Other 11-08-2023 Evaluation note* Encounter Date Diagnosis Assessment Notes Treatment Notes Treatment Clinical Notes Sep, Hypertensive chronic kidney disease with stage 1 through stage 4 chronic kidney disease, or unspecified chronic kidney disease (ICD-10 - I12.9) [facility] Other 11-07-2023 History and physical note Author Yasmeen Treadwell [facility] October 06, 2023 8:31amNote Date/TimeNov2022 8:31am[place] [id number] Gastroenterology H&P Signed Patient: Rita Cobb MR#: [id number] [birth year] : 1960 Acct:[id number] Age/Sex: 62 / F Adm Date: 3 Loc: Room: Type: [facility] Attending Dr: Yasmeen Treadwell MD Copies to: [...] signed by Yasmeen Treadwell MD> 10/06/23 0831 [facility] Work Phone: 1(239) 959-118711-07-2023 Procedure noteGe[facility] Hospital10-25-2023 Evaluation note* Encounter Date Diagnosis Assessment [...] Aug,OtherAbove note written by Corina Sánchez LPN, [employer]. Edited and approved by Dr. Blas Ortiz MD. [facility] Other 10-17-2023 Evaluation note* Encounter Date Diagnosis [...] risk of worsening renal function and hematuria. [facility] Other 09-19-2023 Evaluation note* Encounter Date Diagnosis Assessment Notes Treatment Notes Treatment Clinical Notes Jul, Hyperuricemia (ICD-10 - E79.0) Jul,iabetic neuropathy (ICD-10 - E11.40) [facility] Other 09-18-2023 Evaluation note* Encounter Date [...] Jul,OtherAbove note written by Corina Sánchez LPN, [place]. Edited and approved by Dr. Blas Ortiz MD. [facility] Other 09-12-2023 Evaluation note* Encounter Date [...] Jul,Low back pain, unspecified (ICD-10 - M54.50) [facility] Other 09-06-2023 Evaluation note* Encounter Date [...] Jul,Screening for colon cancer (ICD-10 - Z12.11) [facility] Other 08-03-2023 Evaluation note* Encounter Date Diagnosis Assessment Notes Treatment Notes Treatment Clinical Notes Jun, Type 2 diabetes wicho itus with diabetic neuropathy, unspecified (ICD-10 - E11.40) [facility] Other 06-20-2023 Evaluation note* Encounter Date [...] M47.812) Refill provided of the above medication. [facility] Other 06-06-2023 Evaluation note* Encounter Date Diagnosis Assessment Notes Treatment Notes Treatment Clinical Notes Apr, Type 2 diabetes wicho itus with diabetic neuropathy, unspecified (ICD-10 - E11.40) [facility] Other 05-15-2023 NotePROCEDURE: XR FOOT LT 2V HISTORY: Pain COMPARISON: XR foot left 04/07/2023 FINDINGS: BONES:Several intraoperative spot fluoroscopic images demonstrate removal of 3 separate lag screws fixating the second and fourth metatarsophalangeal joints. SOFT TISSUES:Expected intraoperative findings. OTHER: Negative. IMPRESSION: 1. Hardware revision involving left midfoot. Electronically authenticated by: BLANKA OLGUIN Date: 2023-04-13 11:35[facility]05-15-2023 NotePROCEDURE: XR FOOT LT MIN 3 VIEWS [...] Electronically authenticated by: BLANKA OLGUIN Date: 2023-04-13 11:29[facility]05-09-2023 NotePROCEDURE: XR FOOT LT MIN 3 VIEWS [...] Electronically authenticated by: BLANKA OLGUIN Date: 2023-04-07 13:31[facility]05-08-2023 Evaluation note* Encounter Date Diagnosis Assessment Notes Treatment Notes Treatment Clinical Notes March, Type 2 diabetes wicho itus with diabetic neuropathy, unspecified (ICD-10 - E11.40) March,Type 2 diabetes mellitus with hyperglycemia, without long-term current use of insulin (ICD-10 - E11.65) [facility] Other 05-02-2023 Evaluation note* Encounter Date [...] as scheduled. Most recent A1C was 7.0. [facility] Other 04-27-2023 Evaluation note* Encounter Date Diagnosis Assessment Notes Treatment Notes Treatment Clinical Notes Feb, Hypertensive chronic kidney disease with stage 1 through stage 4 chronic kidney disease, or unspecified chronic kidney disease (ICD-10 - I12.9) Feb,Type 2 diabetes mellitus with diabetic neuropathy, unspecified (ICD- 10 - E11.40) [facility] Other 04-11-2023 Evaluation note* Encounter Date [...] have advised to continue with oral magnesium. [facility] Other 04-05-2023 Evaluation note* Encounter Date Diagnosis Assessment Notes Treatment Notes Treatment Clinical Notes Feb, Hyperlipidemia (ICD-10 - E78.5) [facility] Other 04-05-2023 Evaluation note* Encounter Date Diagnosis Assessment Notes Treatment Notes Treatment Clinical Notes Feb, Obstructive apnea (ICD-10 - G47. 33) Feb,Insomnia (ICD-10 - G47.00) Feb,Neuropathy (ICD-10 - G62.9) [facility] Other 04-05-2023 NotePROCEDURE: XR FOOT LT [...] Electronically authenticated by: BLANKA OLGUIN Date: 2023-03-04 06:39[facility]03-20-2023 Evaluation note* Encounter Date Diagnosis Assessment Notes Treatment Notes Treatment Clinical Notes Jan, Hypertensive chronic kidney disease with stage 1 through stage 4 chronic kidney disease, or unspecified chronic kidney disease (ICD-10 - I12.9) Jan,iabetic neuropathy (ICD-10 - E11.40) [facility] Other 03-09-2023 Evaluation note* Encounter Date Diagnosis Assessment Notes Treatment Notes Treatment Clinical Notes Jan, Hyperuricemia (ICD-10 - E79.0) [facility] Other 03-08-2023 NotePROCEDURE: XR FOOT LT [...] Electronically authenticated by: BRODERICK FLOR Date: 2023-02-04 09:36[facility]02-22-2023 NotePROCEDURE: XR FOOT LT MIN 3 VIEWS [...] Electronically authenticated by: BLANKA OLGUIN Date: 2023-01-21 10:26[facility]02-20-2023 Evaluation note* Encounter Date Diagnosis Assessment Notes Treatment Notes Treatment Clinical Notes Dec, Diabetic neuropathy (ICD-10 - E1 1.40) [facility] Other [id number] NotePROCEDURE: XR FOOT LT MIN 3 VIEWS, [...] Electronically authenticated by: BLANKA OLGUIN Date: 2022-12-29 17:33[facility]01-30-2023 NotePROCEDURE: XR FOOT LT MIN 3 VIEWS, [...] Electronically authenticated by: BLANKA OLGUIN Date: 2022-12-29 17:33[facility]01-30-2023 NotePROCEDURE: XR FOOT LT 2V HISTORY: Pain COMPARISON: XR foot bilateral 11/12/2022 FINDINGS: BONES:Multiple intraoperative spot fluoroscopic images demonstrate resection of the bases of the metatarsals followed by midfoot fusion via lag screws. Talocalcaneal fusion. SOFT TISSUES:Expected intraoperative findings. IMPRESSION: 1. Midfoot resection and fusion. 2. Talocalcaneal fusion. Electronically authenticated by: BLANKA OLGUIN Date: 2022-12-29 17:31[facility]01-24-2023 NoteEXAM: XR CHEST 2 V HISTORY: Pre-surgery [...] Electronically authenticated by: ACOSTA JOHNSON Date: 2022-12-23 12:48[facility]11-29-2022 Evaluation note* Encounter Date Diagnosis Assessment Notes Treatment Notes Treatment Clinical Notes Sep, Encounter for immunization (ICD- 10 - Z23) Patient presents today for Shingrix vaccination #1 of 2. Patient denies current acute illness, denies any past allergy or serious reaction to previousvaccine or ingredients. Shingrix Vaccine material and current VIS discussed and provided to patient. [facility] Other 11-17-2022 Evaluation note* Encounter Date Diagnosis Assessment Notes Treatment Notes Treatment Clinical Notes Sep, Encounter for immunization (ICD- 10 - Z23) Patient denies current illness, previous allergic reaction to influenza vaccine, eggs, or other vaccines, and Guillain-Forsyth Syndrome. Patient given current editions of influenza Vaccine Information Statement (VIS). [facility] Other 11-17-2022 Evaluation note* Encounter Date Diagnosis Assessment Notes Treatment Notes Treatment Clinical Notes Sep, Hypertensive chronic kidney disease with stage 1 through stage 4 chronic kidney disease, or unspecified chronic kidney disease (ICD-10 - I12.9) [facility] Other 11-17-2022 Evaluation note* Encounter Date Diagnosis Assessment Notes Treatment Notes Treatment Clinical Notes Sep, Encounter for immunization (ICD- 10 - Z23) Patient presents today for COVID-19 vaccination booster. Patient pre-vaccination form answers reviewed. Patient denies current illness or allergic reaction to any component of a COVD-19 vaccine. Patient provided with copy of current EUA. [facility] Other 10-26-2022 Evaluation note* Encounter Date [...] her to take a low phosphorus diet. [facility] Other 10-04-2022 Evaluation note* Encounter Date [...] E11.40) Pateint continues on the above medications. [facility] Other 09-08-2022 Evaluation note* Encounter Date Diagnosis Assessment Notes Treatment Notes Treatment Clinical Notes Jul, Diabetic neuropathy (ICD-10 - E1 1.40) [facility] Other 08-17-2022 Evaluation note* Encounter Date Diagnosis Assessment Notes Treatment Notes Treatment Clinical Notes Jun, Hyperlipidemia (ICD-10 - E78.5) Jun,KD (chronic kidney disease) stage 3, GFR 30-59 ml/min (ICD-10 - N18.3) Jun,Essential hypertension (ICD-10 - I10) [facility] Other 08-03-2022 Evaluation note* Encounter Date Diagnosis Assessment Notes Treatment Notes Treatment Clinical Notes Jun, Type 2 diabetes wicho itus with diabetic neuropathy, unspecified (ICD-10 - E11.40) [facility] Other 06-01-2022 Evaluation note* Encounter Date Diagnosis Assessment Notes Treatment Notes Treatment Clinical Notes Apr, Obstructive apnea (ICD-10 - G47. 33) Apr,Insomnia (ICD-10 - G47.00) Apr,Neuropathy (ICD-10 - G62.9) [facility] Other 05-16-2022 Evaluation note* Encounter Date [...] Patient is to continue to follow with bag bleacher as scheduled. March,hortness of breath (ICD-10 - R06.02) Patient is to continue to follow with the bag bleacher as scheduled. March,arathyroid disease (ICD-10 - E21.5) Patient is to continue to follow with the specialist as scheduled. March,harcot foot due to diabetes mellitus (ICD-10 - E11.610) Patient is to continue to follow with as scheduled. [facility] Other 05-09-2022 Evaluation note* Encounter Date Diagnosis Assessment Notes Treatment Notes Treatment Clinical Notes March, Type 2 diabetes wicho itus with diabetic neuropathy, unspecified (ICD-10 - E11.40) March,Type 2 diabetes mellitus with hyperglycemia, without long-term current use of insulin (ICD-10 - E11.65) [facility] Other 03-24-2022 Evaluation note* Encounter Date [...] her to take a low phosphorus diet. [facility] Other 03-11-2022 Evaluation note* Encounter Date [...] her symptoms worsen. 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 I did provide a work note excuse today. Jan,hortness of breath (ICD-10 - R06.02) In house EKG ordered and reviewed. Cardiac consult recommended as above. Jan,iabetic neuropathy (ICD-10 - E11.40) Worsening bilateral neuropathy reported by the patient . she has been consulting with custom clothier who per patient has suggested it may [...] The patient encourged to follow up with burning supervisor as scheduled, discussion was had she would benefit from a pulmonary function test. [facility] Other 02-22-2022 Evaluation note* Encounter Date Diagnosis Assessment Notes Treatment Notes Treatment Clinical Notes Dec, Type 2 diabetes wicho itus with diabetic neuropathy, unspecified (ICD-10 - E11.40) [facility] Other 01-04-2022 Evaluation note* Encounter Date [...] deficiency (ICD-10 - E55.9) Blood work ordered. [facility] Other 02-01-2015 History general Narrative - Reported* Type Description Date Medical History DM2 Medical HistoryHTNMedical HistorySleep apneaMedical Historyhypercalcemia due [facility] HistoryneuropathyMedical History12/2014 colonscopy refusedMedical History12/31/2015 MRI left kneeMedical History04/15/19 colonoscopy refused; cologuard orderedMedical Sapvbda28/19/19 Colonoscopy-abnormal repeat in 4 years (pos cologuard)Medical Wiriqxq70/2019 Pap w/ Dr. Hesteredical History Skin ulcer of left foot, limited to breakdown of skinMedical HistorySepsis, unspecified organismMedical HistoryH/O parathyroidectomyMedical HistoryRIGHT FOOT FRACTURESurgical Historycervical fusion and low back dqfkwi5197Bwjgwlpo HistoryProcedure:;Disease:Ifxuoyipr4795Joestokg Historyprevious cervical fcgkxs0651Jtwsdklp HistoryProcedure:;Disease:Odkbjolwo3049Hioqounx History c/sqowvjo9792Kgvcgkav HistoryProcedure:;Disease:Larhnbkyo2444Etplcsfs Slfdsjogfloywexdj6870Gtievxtl HistoryProcedure:tubal ligationSurgical History Procedure:Low back fusionSurgical Historytubal jugmtieb6547Eypsiptg History2 parathyroids mfrmdur21/2013Surgical HistoryProcedure:cervical fusionSurgical HistoryBilateral eyelid uiuauvn66/2012Surgical HistoryProcedure:x2 thyroid glands newrvih5447Mqmlzfmf Historyleft knee arthoscopy02/2016Surgical History lithotripsy03/2015Surgical Historyleft knee arthroscopy02/2016Surgical History partial left knee replacement12/2016Surgical Historyincision and drainage necrotizing fasciiitis seroma/bullae left lateral ankle/midfoot12/27/17urgical Historypartial left knee jzjawbyukaw86/2017Surgical HistoryI&D, debridement necrotizing fasciitis left ankle12/27/2017Surgical HistoryLeft ankle I & D1-2018 Surgical HistoryGallbladder01/2018Surgical HistoryLap. cholecystectomy02/17/2018 Surgical Vgnmpygpdjaqagxggv11/19/2019Surgical HistoryColonoscopy06/17/2019 Surgical Historylow back hvxmdve8007/25/2020Hospitalization Cquinnrgpqqzzehtxs5179 Hospitalization Historynecrotizing fasciitis11/2017Hospitalization Historysee above [facility] Other 02-01-2015 History general Narrative - Reported* Type Description Date Medical History DM2 Medical HistoryHTNMedical HistorySleep apneaMedical Historyhypercalcemia due to [facility] HistoryneuropathyMedical History12/2014 colonscopy refusedMedical History12/31/2015 MRI left kneeMedical History04/15/19 colonoscopy refused; cologuard orderedMedical Texglzk21/19/19 Colonoscopy-abnormal repeat in 4 years (pos cologuard)Medical Bgvnhsk03/2019 Pap w/ Dr. SeymourerMedical History Skin ulcer of left foot, limited to breakdown of skinMedical HistorySepsis, unspecified organismMedical HistoryH/O parathyroidectomyMedical HistoryRIGHT FOOT FRACTURESurgical Historycervical fusion and low back beqsfv0760Ahaylwuo HistoryProcedure:;Disease:Uuhmsknlw0987Jnupmmcv Historyprevious cervical qubkcp6974Savxkivs HistoryProcedure:;Disease:Orwcwhpkw0298Yqjmnzmz History c/ueqfwso8362Clacntbc HistoryProcedure:;Disease:Fvwxmsstx2973Anbexrxg Dkdzavwacwyksohht8880Jmdvwjtx HistoryProcedure:tubal ligationSurgical History Procedure:Low back fusionSurgical Historytubal gzdmczod0955Ismhmsgr History2 parathyroids tpzdmum53/2013Surgical HistoryProcedure:cervical fusionSurgical HistoryBilateral eyelid nsncgvu74/2012Surgical HistoryProcedure:x2 thyroid glands ojvsdtv4450Jggqxqjs Historyleft knee arthoscopy02/2016Surgical History lithotripsy03/2015Surgical Historyleft knee arthroscopy02/2016Surgical History partial left knee replacement12/2016Surgical Historyincision and drainage necrotizing fasciiitis seroma/bullae left lateral ankle/midfoot12/27/17urgical Historypartial left knee unhdttxvmlw20/2017Surgical HistoryI&D, debridement necrotizing fasciitis left ankle12/27/2017Surgical HistoryLeft ankle I & D1-2018 Surgical HistoryGallbladder01/2018Surgical HistoryLap. cholecystectomy02/17/2018 Surgical Glvcaxjoxdxwvgyjjr05/19/2019Surgical HistoryColonoscopy06/17/2019 Surgical Historylow back uzpoein5107/25/2020Surgical HistoryCardiac cath with stent placement mid LAD03/27/2022Hospitalization Bjzmitkybhatpptisi2323 Hospitalization Historynecrotizing fasciitis11/2017Hospitalization Historysee above [facility] Other 02-01-2015 History general Narrative - Reported* Type Description Date Medical History DM2 Medical HistoryHTNMedical HistorySleep apneaMedical Historyhypercalcemia due to PHT s/[facility] HistoryneuropathyMedical History12/2014 colonscopy refusedMedical History12/31/2015 MRI left kneeMedical History04/15/19 colonoscopy refused; cologuard orderedMedical Scznxhb65/19/19 Colonoscopy-abnormal repeat in 4 years (pos cologuard)Medical Bjgymid36/2019 Pap w/ Dr. SeymourerMedical History Skin ulcer of left foot, limited to breakdown of skinMedical HistorySepsis, unspecified organismMedical HistoryH/O parathyroidectomyMedical HistoryRIGHT FOOT FRACTUREMedical HistoryLEFT FOOT LUCAS SEEING PODIATRISTSurgical History cervical fusion and low back qhjvyw5182Lpdbrawu History Procedure:;Disease:Uauouttwx3903Duoaqamr Historyprevious cervical fusion 1997Surgical HistoryProcedure:;Disease:Bvynbxfnu7479Igwkwdny History c/cizgujg4769Yucdljtp HistoryProcedure:;Disease:Ibmuhyffx5677Lznrudak Ntzemhpkgshwvzrqz2406Bbcqcyje HistoryProcedure:tubal ligationSurgical History Procedure:Low back fusionSurgical Historytubal jkrjrqid5273Xbleyxsf History2 parathyroids rmmxokr25/2013Surgical HistoryProcedure:cervical fusionSurgical HistoryBilateral eyelid omjtink37/2012Surgical HistoryProcedure:x2 thyroid glands sjbvmff7923Tvhzdxng Historyleft knee arthoscopy02/2016Surgical History lithotripsy03/2015Surgical Historyleft knee arthroscopy02/2016Surgical History partial left knee replacement12/2016Surgical Historyincision and drainage necrotizing fasciiitis seroma/bullae left lateral ankle/midfoot12/27/urgical Historypartial left knee xobrqbjgmka11/2017Surgical HistoryI&D, debridement necrotizing fasciitis left ankle12/27/2017Surgical HistoryLeft ankle I & D1-2018 Surgical HistoryGallbladder01/2018Surgical HistoryLap. cholecystectomy02/17/2018 Surgical Nezggeybnmlxzucqoj15/19/2019Surgical HistoryColonoscopy06/17/2019 Surgical Historylow back eaoujcx7607/25/2020Surgical HistoryCardiac cath with stent placement mid LAD03/27/2022Hospitalization Mtcirjqsfzgfrxoomh5349 Hospitalization Historynecrotizing fasciitis11/2017Hospitalization Historysee above [facility] Other 02-01-2015 History general Narrative - Reported* Type Description Date Medical History DM2 Medical HistoryHTNMedical HistorySleep apneaMedical Historyhypercalcemia due to [facility] HistoryneuropathyMedical History12/2014 colonscopy refusedMedical History12/31/2015 MRI left kneeMedical History04/15/19 colonoscopy refused; cologuard orderedMedical Fohdipy18/19/19 Colonoscopy-abnormal repeat in 4 years (pos cologuard)Medical Zeeyaxd13/2019 Pap w/ Dr. SeymourerMedical History Skin ulcer of left foot, limited to breakdown of skinMedical HistorySepsis, unspecified organismMedical HistoryH/O parathyroidectomyMedical HistoryRIGHT FOOT FRACTUREMedical HistoryLEFT FOOT LUCAS SEEING PODIATRISTSurgical History cervical fusion and low back uimoim5004Wkhhagri History Procedure:;Disease:Cocbkmcfm6147Sywddcoi Historyprevious cervical fusion 1997Surgical HistoryProcedure:;Disease:Sdqaexptf8882Abplieda History c/vnqjakp2022Ihtztlvt HistoryProcedure:;Disease:Btndqogrt7414Aepuwmfk Msasqkpcljxqqgcnc1918Uvkbcops HistoryProcedure:tubal ligationSurgical History Procedure:Low back fusionSurgical Historytubal vtgcjxnm6761Eeqkpstg History2 parathyroids /2013Surgical HistoryProcedure:cervical fusionSurgical HistoryBilateral eyelid owapzqg36/2012Surgical HistoryProcedure:x2 thyroid glands bfqbfln8202Rngipwvz Historyleft knee arthoscopy02/2016Surgical History lithotripsy03/2015Surgical Historyleft knee arthroscopy02/2016Surgical History partial left knee replacement12/2016Surgical Historyincision and drainage necrotizing fasciiitis seroma/bullae left lateral ankle/midfoot12/27/urgical Historypartial left knee krqkabntbkv64/2017Surgical HistoryI&D, debridement necrotizing fasciitis left ankle12/27/2017Surgical HistoryLeft ankle I & D1-2017 Surgical HistoryGallbladder01/2018Surgical HistoryLap. cholecystectomy02/17/2018 Surgical Foxyjsilviefdfcmyw26/19/2019Surgical HistoryColonoscopy06/17/2019 Surgical Historylow back fkingjp1407/25/2020Surgical HistoryCardiac cath with stent placement mid LAD03/27/2022urgical Historyreconstruction lt foot surgery 12/29/2022Hospitalization Sddqckzislwathidqp5805Ehkayvercxgtfbr History necrotizing fasciitis11/2017Hospitalization Historysee above [facility] Other 02-01-2015 History general Narrative - Reported* Type Description Date Medical History DM2 Medical HistoryHTNMedical HistorySleep apneaMedical Historyhypercalcemia due to [facility] HistoryneuropathyMedical History12/2014 colonscopy refusedMedical History12/31/2015 MRI left kneeMedical History04/15/19 colonoscopy refused; cologuard orderedMedical Qxraloj88/19/19 Colonoscopy-abnormal repeat in 4 years (pos cologuard)Medical Dzahftz88/2019 Pap w/ Dr. SeymourerMedical History Skin ulcer of left foot, limited to breakdown of skinMedical HistorySepsis, unspecified organismMedical HistoryH/O parathyroidectomyMedical HistoryRIGHT FOOT FRACTUREMedical HistoryLEFT FOOT LUCAS SEEING PODIATRISTSurgical History cervical fusion and low back kskplc5618Wcvpqjdl History Procedure:;Disease:Pnzakiejk4714Rnsyqdxr Historyprevious cervical fusion 1997Surgical HistoryProcedure:;Disease:Ksmdbocem2362Kmretcqf History c/vybbwlu8640Jsotwzwu HistoryProcedure:;Disease:Zjdtobxdj0121Xldgatcu Pvbnbwvihtllvssgn8236Vavlpfcy HistoryProcedure:tubal ligationSurgical History Procedure:Low back fusionSurgical Historytubal aerxubde6430Suldddfk History2 parathyroids qrsoqui61/2013Surgical HistoryProcedure:cervical fusionSurgical HistoryBilateral eyelid jdjtubk05/2012Surgical HistoryProcedure:x2 thyroid glands arpgpbn0137Jsgbngyx Historyleft knee arthoscopy02/2016Surgical History lithotripsy03/2015Surgical Historyleft knee arthroscopy02/2016Surgical History partial left knee replacement12/2016Surgical Historyincision and drainage necrotizing fasciiitis seroma/bullae left lateral ankle/midfoot12/27/17urgical Historypartial left knee wzqizzatdzo55/2017Surgical HistoryI&D, debridement necrotizing fasciitis left ankle12/27/2017Surgical HistoryLeft ankle I & D1-2018 Surgical HistoryGallbladder01/2018Surgical HistoryLap. cholecystectomy02/17/2018 Surgical Hnqnlqrazswabelcgd46/19/2019Surgical HistoryColonoscopy06/17/2019 Surgical Historylow back surgery-ojxqnc2607/25/2020Surgical HistoryCardiac cath with stent placement mid LAD03/27/2022urgical Historyreconstruction lt foot kwpbmvp6312/29/2022Hospitalization Intybqmxxxacovrdbf9052Sniffzeeervfqhh History necrotizing fasciitis11/2017Hospitalization Historysee above [facility] Other 02-01-2015 History general Narrative - Reported* Type Description Date Medical History DM2 Medical HistoryHTNMedical HistorySleep apneaMedical Historyhypercalcemia due to [facility] HistoryneuropathyMedical History12/2014 colonscopy refusedMedical History12/31/2015 MRI left kneeMedical History04/15/19 colonoscopy refused; cologuard orderedMedical Fphwscc59/19/19 Colonoscopy-abnormal repeat in 4 years (pos cologuard)Medical Luaxahk64/2019 Pap w/ Dr. SeymourerMedical History Skin ulcer of left foot, limited to breakdown of skinMedical HistorySepsis, unspecified organismMedical HistoryH/O parathyroidectomyMedical HistoryRIGHT FOOT FRACTUREMedical HistoryLEFT FOOT LUCAS SEEING PODIATRISTSurgical History cervical fusion and low back blkddb4970Wssytpkm History Procedure:;Disease:Woxktrhpn6641Uwnazdkb Historyprevious cervical fusion 1997Surgical HistoryProcedure:;Disease:Npkzpapeu3996Dwzcfysq History c/wmevund6341Ltjwtxlq HistoryProcedure:;Disease:Twbecrjbt3727Fkuqkbms Rccsfdjigzajinjsb0927Hqbgusof HistoryProcedure:tubal ligationSurgical History Procedure:Low back fusionSurgical Historytubal xuzhaosb5159Ucorncsd History2 parathyroids /2013Surgical HistoryProcedure:cervical fusionSurgical HistoryBilateral eyelid /2012Surgical HistoryProcedure:x2 thyroid glands zqckryh8180Lqfgnpxr Historyleft knee arthoscopy02/2016Surgical History lithotripsy03/2015Surgical Historyleft knee arthroscopy02/2016Surgical History partial left knee replacement12/2016Surgical Historyincision and drainage necrotizing fasciiitis seroma/bullae left lateral ankle/midfoot12/27/17urgical Historypartial left knee vibwypuoqmx51/2017Surgical HistoryI&D, debridement necrotizing fasciitis left ankle12/27/2017Surgical HistoryLeft ankle I & D1-2017 Surgical HistoryGallbladder01/2018Surgical HistoryLap. cholecystectomy02/17/2018 Surgical Lqflrxppznefjotuie96/19/2019Surgical HistoryColonoscopy06/17/2019 Surgical Historylow back surgery-laocbr4307/25/2020Surgical HistoryCardiac cath with stent placement mid LAD03/27/2022urgical Historyreconstruction lt foot surgery Dr. Castro12/29/2022Hospitalization Igsicdkonmdidcweot9495 Hospitalization Historynecrotizing fasciitis11/2017Hospitalization Historysee above [facility] Other 02-01-2015 History general Narrative - Reported* Type Description Date Medical History DM2 Medical HistoryHTNMedical HistorySleep apneaMedical Historyhypercalcemia due to PHT s/p surgery in [facility] HistoryneuropathyMedical History12/2014 colonscopy refusedMedical History12/31/2015 MRI left kneeMedical History04/15/19 colonoscopy refused; cologuard orderedMedical Crgbpvd01/19/19 Colonoscopy-abnormal repeat in 4 years (pos cologuard)Medical Uhqfegi72/2019 Pap w/ Dr. SeymourerMedical History Skin ulcer of left foot, limited to breakdown of skinMedical HistorySepsis, unspecified organismMedical HistoryH/O parathyroidectomyMedical HistoryRIGHT FOOT FRACTUREMedical HistoryLEFT FOOT LUCAS SEEING PODIATRISTSurgical History cervical fusion and low back kkefip9468Yfmrzewz History Procedure:;Disease:Ejxoapghn0545Xgunnwzm Historyprevious cervical fusion 1997Surgical HistoryProcedure:;Disease:Dxtcrsvhy2735Cfqdphyy History c/kmdcgdu4836Jfnfkuba HistoryProcedure:;Disease:Gcffxcxaa6621Rbnzfmql Eutmokhkydwgtltmn5732Czlkpkza HistoryProcedure:tubal ligationSurgical History Procedure:Low back fusionSurgical Historytubal bdwxbjgz3841Whwbcfgi History2 parathyroids vgndbic91/2013Surgical HistoryProcedure:cervical fusionSurgical HistoryBilateral eyelid eycoplr30/2012Surgical HistoryProcedure:x2 thyroid glands hlmxnaq7800Zvxexuou Historyleft knee arthoscopy02/2016Surgical History lithotripsy03/2015Surgical Historyleft knee arthroscopy02/2016Surgical History partial left knee replacement12/2016Surgical Historyincision and drainage necrotizing fasciiitis seroma/bullae left lateral ankle/midfoot12/27/17urgical Historypartial left knee mvtkocgzkka88/2017Surgical HistoryI&D, debridement necrotizing fasciitis left ankle12/27/2017Surgical HistoryLeft ankle I & D1-2018 Surgical HistoryGallbladder01/2018Surgical HistoryLap. cholecystectomy02/17/2018 Surgical Tnyayjxqgmpgcrxywx44/19/2019Surgical HistoryColonoscopy06/17/2019 Surgical Historylow back surgery-ffhkto1807/25/2020Surgical HistoryCardiac cath with stent placement mid LAD03/27/2022urgical Historyreconstruction lt foot surgery Dr. Castro12/29/2022Surgical HistorySTEROID INJECTIONS IN LOW BACK AND RIGHT HIP08/2023Hospitalization Ecpckjyzdwjflxynae7001Lnwjcxvhdfhjwsl Historynecrotizing fasciitis11/2017Hospitalization Historysee above [facility] Other Evaluation noteN[facility] Other Evaluation noteNo InformationNort [facility] Other Evaluation noteNort [facility] Other evaluation noteNo assessment information available [facility] Work Phone: Evaluation note* Diagnosis Coronary artery disease, unspecified vessel or lesion type, unspecified whether angina present, unspecified whether [place] or transplanted heart- Primary Essential hypertension Unspecified essential hypertension 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 Hyperlipidemia, unspecified hyperlipidemia type Obstructive sleep apnea syndrome Obstructive sleep apnea (adult) (pediatric) Class 2 obesity with body mass index (BMI) of 37.0 to 37.9 in adult, unspecified obesity type, unspecified whether serious comorbidity present Insulin-requiring or dependent type II diabetes mellitus ([facility]) Type II or unspecified type diabetes mellitus without mention of complication, not stated as uncontrolled documented in this encounter [facility] Work Phone: Evaluation note* Diagnosis Onset Date Resolution Status Chronic pain acuteInflammation of sacroiliac jointacuteOsteoarthritis of spine with radiculopathy, lumbar regionacuteTrochanteric bursitisacute [facility] Work Phone: Evaluation note* Diagnosis Onset Date Resolution Status Chronic pain acuteInflammation of sacroiliac jointacuteOsteoarthritis of spine with radiculopathy, lumbar regionacuteTrochanteric bursitisacuteCKD (chronic kidney disease) stage 3, GFR 30-59 ml/minacuteHyperlipidemiaacuteHyperparathyroidism sakpiNGR-HSCF-[id number]idfhdfgdqlidyttptjRcwmslnfldvbkht acuteType 2 diabetes mellitus with diabetic chronic kidney diseaseacute [facility] Work Phone: Evaluation note* Diagnosis Onset Date Resolution Status Chronic pain acuteInflammation of sacroiliac jointacuteOsteoarthritis of spine with radiculopathy, lumbar regionacuteTrochanteric bursitisacuteCKD (chronic kidney disease) stage 3, GFR 30-59 ml/minacuteHyperlipidemiaacuteHyperparathyroidism cuyakQIU-QBES-[id number]jezshfwbcbdhtylzswKxwnhckthigqaag acuteType 2 diabetes mellitus with diabetic chronic kidney diseaseacuteChronic painacuteLumbar muscle painacuteOsteoarthritis of spine with radiculopathy, lumbar regionacute [facility] Work Phone: Evaluation note* Diagnosis Onset Date Resolution Status CKD (chronic kidney disease) stage 3, GF R 30-59 ml/min wdinpMlokudtcjxbprdrmighWcpdckpejuwbsgfzelowbhnvWFZ-OFCQ-[id number] HyperuricemiaacuteHypomagnesemiaacuteNephrolithiasisacuteType 2 diabetes mellitus with diabetic chronic kidney diseaseacuteChronic painacuteLumbar muscle painacuteOsteoarthritis of spine with radiculopathy, lumbar regionacuteChronic painacuteOsteoarthritis of spine with radiculopathy, lumbar regionacute Sacroiliitis, not elsewhere classifiedacute [facility] Work Phone: evaluation note* Diagnosis Onset Date Resolution Status Chronic pain acuteLumbar muscle painacuteOsteoarthritis of spine with radiculopathy, lumbar regionacuteChronic painacuteOsteoarthritis of spine with radiculopathy, lumbar regionacuteSacroiliitis, not elsewhere classifiedacute [facility] Work Phone: evaluation note* Diagnosis Onset Date Resolution Status Chronic pain acuteLumbar muscle painacuteOsteoarthritis of spine with radiculopathy, lumbar regionacuteChronic painacuteOsteoarthritis of spine with radiculopathy, lumbar regionacuteSacroiliitis, not elsewhere classifiedacuteObstructive apneaacute [facility] Work Phone: evaluation note* Diagnosis Onset Date Resolution Status Chronic pain acuteLumbar muscle painacuteOsteoarthritis of spine with radiculopathy, lumbar regionacuteChronic painacuteOsteoarthritis of spine with radiculopathy, lumbar regionacuteSacroiliitis, not elsewhere classifiedacuteObstructive apneaacute Chronic painacuteOsteoarthritis of spine with radiculopathy, lumbar regionacute Sacroiliitis, not elsewhere classifiedacute [facility] Work Phone: Evaluation note* Diagnosis Onset Date Resolution Status Chronic pain acuteOsteoarthritis of spine with radiculopathy, lumbar regionacuteSacroiliitis, not elsewhere classifiedacute [facility] Work Phone: evaluation note* Diagnosis Type 2 diabetes mellitus with peripheral neuropathy ([facility])- Primary 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 ([facility]) Long-term insulin use ([facility]) Class 2 severe obesity due to excess calories with serious comorbidity and body mass index (BMI) of39.0 to 39.9 in adult ([facility]) Type 2 diabetes mellitus with peripheral neuropathy ([facility])- Primary 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 ([facility]) Class 2 severe obesity due to excess calories with serious comorbidity and body mass index (BMI) of39.0 to 39.9 in adult ([facility]) Long-term insulin use ([facility]) Spondylolisthesis at L3-L4 level Class 2 severe obesity due to excess calories with serious comorbidity and body mass index (BMI) of38.0 to 38.9 in adult ([facility])- Primary Type 2 diabetes mellitus with both eyes affected by mild nonproliferative retinopathy without macular edema, with long-term current use of insulin ([facility]) Type 2 diabetes mellitus with peripheral neuropathy ([facility]) 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 ([facility]) Long-term insulin use ([facility]) Type 2 diabetes mellitus with peripheral neuropathy ([facility])- Primary 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 ([facility]) Type 2 diabetes mellitus with both eyes affected by mild nonproliferative retinopathy without macular edema, with long-term current use of insulin ([facility]) Long-term insulin use ([facility]) Class 2 severe obesity due to excess calories with serious comorbidity and body mass index (BMI) of39.0 to 39.9 in adult ([facility]) documented in this encounter [facility] HealthcareEvaluation note* Diagnosis Coronary artery disease, unspecified vessel or lesion type, unspecified whether angina present, unspecified whether [place] or transplanted heart Elevated coronary artery calcium score Essential hypertension Unspecified essential hypertension Hyperlipidemia, unspecified hyperlipidemia type Type 2 diabetes mellitus without complication, with long-term current use of insulin ([facility]) 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 Obstructive sleep apnea syndrome Obstructive sleep apnea (adult) (pediatric) Class 2 obesity with body mass index (BMI) of 37.0 to 37.9 in adult, unspecified obesity type, unspecified whether serious comorbidity present documented in this encounter [facility] Work Phone: Evaluation note* Author France Carlson [facility] 20[facility] 10:30amThe above note written by ITZ Teresa acting as human recorder, note dictated by Dr. Charan Casey. 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) Class 2 severe obesity due to excess calories with serious comorbidity and body mass index (BMI) of39.0 to 39.9 in adult ([facility]) Long-term insulin use (HCC) Spondylolisthesis at L3-L4 level Class 2 severe obesity due to excess calories with serious comorbidity and body mass index (BMI) of38.0 to 38.9 in adult ([facility])- Primary Type 2 diabetes mellitus with [...] index (BMI) of39.0 to 39.9 in adult ([facility]) Type 2 diabetes mellitus with Charcot's [...] index (BMI) of37.0 to 37.9 in adult ([facility]) Type 2 diabetes mellitus with Charcot's [...] index (BMI) of35.0 to 35.9 in adult ([facility]) documented in this encounter [facility] HealthcareEvaluation note* Diagnosis Type 2 diabetes mellitus with peripheral neuropathy (HCC)- Primary 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) Long-term insulin use (HCC) Class 2 severe obesity due to excess calories with serious comorbidity and body mass index (BMI) of39.0 to 39.9 in adult ([facility]) Type 2 diabetes mellitus with peripheral neuropathy (HCC)- Primary 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) Class 2 severe obesity due to excess calories with serious comorbidity and body mass index (BMI) of39.0 to 39.9 in adult ([facility]) Long-term insulin use ([facility]) Spondylolisthesis at L3-L4 level Class 2 severe obesity due to excess calories with serious comorbidity and body mass index (BMI) of38.0 to 38.9 in adult ([facility])- Primary Type 2 diabetes mellitus with both [...] index (BMI) of39.0 to 39.9 in adult ([facility]) 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)- Primary Type 2 diabetes mellitus with peripheral neuropathy (HCC) Type 2 diabetes mellitus with both eyes affected by mild nonproliferative retinopathy without macular edema, with long-term current use of insulin (HCC) Long-term insulin use ([facility]) Class 2 severe obesity due to excess calories with serious comorbidity and body mass index (BMI) of37.0 to 37.9 in adult ([facility]) 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)- Primary Type 2 diabetes mellitus with peripheral neuropathy ([facility]) Type 2 diabetes mellitus with both eyes affected by mild nonproliferative retinopathy without macular edema, with long-term current use of insulin (HCC) Long-term insulin use ([facility]) Class 2 severe obesity due to excess calories with serious comorbidity and body mass index (BMI) of35.0 to 35.9 in adult ([facility]) Type 2 diabetes mellitus with peripheral neuropathy ([facility])- Primary 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 ([facility]) Type 2 diabetes mellitus with both eyes affected by mild nonproliferative retinopathy without macular edema, with long-term current use of insulin (HCC) Long-term insulin use ([facility]) Class 2 severe obesity due to excess calories with serious comorbidity and body mass index (BMI) of35.0 to 35.9 in adult ([facility]) documented [facility] encounter [facility] Narrative - [facility] Other History general Narrative - [facility]Ther[facility] Other Hospital Discharge instructions Additional Instructions DISCHARGE [...] years. -Follow up with PCP. -Office number [phone]. [facility] Work Phone: Reason for referral (narrative)* Consultation (Routine) - AuthorizedSpecialtyDiagnoses / ProceduresReferred By Contact Referred To ContactCardiology Diagnoses Coronary artery disease, unspecified vessel or lesion type, unspecified whether angina present, unspecified whether [place] or transplanted heart Procedures Follow Up In Cardiology Rosalinda oTrres MD [address] [place] [id number] Rosalinda Torres MD [address] [place] [address], [address] [address] Referral IDStatusReasonStart DateExpiration DateVisits RequestedVisits [id number]/25/20243/ [facility] Work Phone: Reason for referral (narrative)* Consultation (Routine) - AuthorizedSpecialtyDiagnoses / ProceduresReferred By Contact Referred To ContactCardiology Diagnoses Coronary artery disease, unspecified vessel or lesion type, unspecified whether angina present, unspecified whether [place] or transplanted heart Procedures Follow Up In Cardiology Rosalinda Torres MD [address] [facility] [address] [place] [address] Rosalinda Torres MD [address] [facility] [address], [facility] [address] [place] [address] Referral IDStatusReasonStart DateExpiration DateVisits RequestedVisits [id number]/26/20249/ [facility] Work Phone: Regdyb for referral (narrative)No reason for referral information availableKettering Health [facility] Center Work Phone: Summary Purpose Family History Unknown Family Member Name Dates Details Family history of CABG: Fat er(V17.49, Z82.49) Status:Active Unknown Family Member Name Dates Details Family history of CABG: [facility] er(V17.49, Z82.49) Status:Active Unknown Family Member Name Dates Details Family history of CABG: [facility] er(V17.49, Z82.49) Status:Active Unknown Family Member [...] the patient is agreeable to go on zusgctbnbyei89 mg daily along with Zetia 10 mg [...] any trouble since her angioplasty. She has Fruopvh-Jztbm-Dmfiw disease and had recent surgery on the [...] has been compliant with it. * 7 Nuhhtlq-Csqos-Sbtwl joint in the ankles status post recent surgery on the left foot with plan to repair the right foot down the road Reason for Referral Reason Patient is need ing to having screening colonoscopy. Please schedule with [facility] Gastro. Patient DOES NOT want to see Dr. Braynt. Please call patient to schedule Diagnosis 1 Screening for colon cancer (Z12.11) Referral Organization [facility] Family Medicin elia Haugen Referring Provider First Name Charan Referring Provider Last Name Jacinto Referring Provider Specialty Family Prac pop Referred Organization [facility] Gastroenterolo gy Referred Provider Yasmeen Treadwell Referred Address [address] [facility] ,[place], [place],[address] Referred Provider Specialty Gastroentero logy Referral Priority Routine General Notes Fore, Renée M 023 10:30:05 AM >Received today and sent P2P Reason stat consult and lou at Diagnosis 1 Chest pressure (R07. 89) Diagnosis 2 Shortness of breath (R06.02) Diagnosis 3 Type 2 diabetes wicho itus with diabetic neuropathy, unspecified (E11.40) Diagnosis 4 Obstructive apnea (G 47.33) Referral Organization [facility] Family Matthew rodrigez Haugen Referring Provider First Name Charan Referring Provider Last Name Jacinto Referring Provider Specialty Family Giancarlo lord Referred Organization [facility] Referred Address [address] [facility] [address],[place], [place],[address] Referred Provider Specialty Cardiology Referral Priority Stat [...] stage 3, GFR 30-59 ml/min Hyperlipidemia Hyperparathyroidism [id number] Hyperuricemia Hypomagnesemia Nephrolithiasis Type 2 diabetes mellitus [...] stage 3, GFR 30-59 ml/min Hyperlipidemia Hyperparathyroidism [id number] Hyperuricemia Hypomagnesemia Nephrolithiasis Type 2 diabetes mellitus [...] stage 3, GFR 30-59 ml/min Hyperlipidemia Hyperparathyroidism [id number] Hyperuricemia Hypomagnesemia Nephrolithiasis Type 2 diabetes mellitus [...] stage 3, GFR 30-59 ml/min Hyperlipidemia Hyperparathyroidism [id number] Hyperuricemia Hypomagnesemia Nephrolithiasis Type 2 diabetes mellitus [...] Shoulder January 26, 2025 9:45am MRI RESULTS [facility] January 26, 2025 12:50pm [...] M75.101 January 23, 2025 12:43pm MRI RESULTS [facility] January 26, 2025 12:50pm [...] M75.101 January 23, 2025 12:43pm MRI RESULTS [facility] January 26, 2025 12:50pm [...] M75.101 January 23, 2025 12:43pm MRI RESULTS [facility] January 26, 2025 12:50pm [...] M75.101 January 23, 2025 12:43pm MRI RESULTS [facility] January 26, 2025 12:50pm [...] 8:03a m Sacroiliitis, not elsewhere classified [facility] 2024 8:03am Trochanteric bursitis May 31, [...] 8:03a m Sacroiliitis, not elsewhere classified [facility] 2024 8:03am Trochanteric bursitis May 31, 2025 8:0 3am Chronic pain June 21, 2025 9:03 am Sacroiliitis, not elsewhere classified [facility] 2024 9:03am Trochanteric bursitis June 21, 2025 9: 03am Diabetic foot ulcer associat ed with type 2 diabetes mellitus, with fat laye July 12, 2025 7:36am MRSA bacteremia July 12, 2025 7: 36am Oral thrush July 12, 2025 7: 36am Additional Source Comments INFORMATION SOURCE (unrecogn ized section and content) DATE CREATED AUTHOR 07/28/2018 [facility] DATE CREATED AUTHOR AUTHOR'S ORGANIZ ATION 03/18/2022 [facility] DATE CREATED AUTHOR AUTHOR'S ORGANIZ ATION 10/17/2022 [facility] DATE CREATED AUTHOR AUTHOR'S ORGANIZ ATION 04/13/2023 [facility] DATE CREATED AUTHOR AUTHOR'S ORGANIZ ATION 05/08/2023 [facility] DATE CREATED AUTHOR AUTHOR'S ORGANIZ ATION 05/08/2023 [facility] DATE CREATED AUTHOR AUTHOR'S ORGANIZ ATION 02/23/2024 [facility] DATE CREATED AUTHOR AUTHOR'S ORGANIZ ATION 06/09/2025 [facility] DATE CREATED AUTHOR AUTHOR'S ORGANIZ ATION 07/29/2025 [facility] REASON FOR VISIT (unrecogniz ed section and content) ReasonOnset DateCommentsMedication Qgcvzqsr77/12/2025ReasonCommentsFollow-up6m SpecialtyDiagnoses / ProceduresReferred By ContactReferred To ContactCardiology Diagnoses Coronary artery disease, unspecified vessel or lesion type, unspecified whether angina present, unspecified whether [place] or transplanted heart Procedures Follow Up In Cardiology Rosalinda Torres MD [address] [facility] [address], [address] [address] Rosalinda Torres MD [address] [facility] [address], [address] [address] Referral IDStatusReasonStart DateExpiration DateVisits RequestedVisits [id number] CommentsFollow-up[address] ChengionCOLONOSCOPY REPORTUpdate Kiosk DemographicsMED REFILL, INCREASED LT HIPPAINF/U BILAT SI JOINT AND R GREATER TROCH BURSA INJ/JMBILAT SI JOINT AND RIGHT TROCH BURSA INJ/JMMAIL PPWrefill- bpk to send rxF/U FROM APPT WITH DR Mosesased pain in lower backemployee DSMEpain, back4 month Follow uppap issuesSHINGRIX #2 // [facility] TRADITIONAL PLAN THROUGH SPOUSESHINGRIX #1 // [facility] TRADITIONAL PLAN THROUGH SPOUSEMODERNA BIVALENT BOOSTERAFLURIA FLU VACCINECKD and HTNreview labSLEEP LABhosp recheck/ discuss disability processDocumentationFYI/ updateDisability paperworkEmployee Program F/UCKDPt no show Employee Diabetes Ed program 4/8Clinicalneuropathy, chest pressure ,SOBfyirefillsneeds fmla, FACETIME [phone] Care Teams (unrecognized sec tion and content) [...] 2023Team MemberRelationshipSpecialtyStart DateEnd Date Charan Casey DO [facility] [address] [place] [address] PCP - GeneralFamily Medicine02/22/24 Rosalinda Torres MD [address] [facility] [address], [address] [address] Consulting PhysicianCardiology02/22/24 Team Status: Inactive Member Role [...] 2024Team MemberRelationshipSpecialtyStart DateEnd Date Charan Casey MD [address] [place] [phone] PCP - General05/20/23 Moni Becker MD [address] [facility] [address] [place] [address] PCP - [facility]/11/2411Team MemberRelationshipSpecialtyStart DateEnd Date Charan Casey DO [facility] - [facility]/22/24 Rosalinda Torres MD [address] [place] [address] 2, [facility] [address] [place] [address] Consulting PhysicianCardiology02/22/24 Team Status: Inactive Member Role [...] 2025Team MemberRelationshipSpecialtyStart DateEnd Date Charan Casey MD [address] [place] [phone] [facility] - General05/20/23 Team Status: Active [...] 2025Team MemberRelationshipSpecialtyStart DateEnd Date Charan Casey DO [address] [place] [phone] [facility] - [facility]05/20/23 Team Status: Inactive Member Role Status [...] 2025Team MemberRelationshipSpecialtyStart DateEnd Date Charan Casey DO [address] [place] [address], [place] [phone] PCP - General05/20/23Team MemberRelationshipSpecialtyStart DateEnd Date Charan Casey DO [address] [place] [address], [place] [phone] PCP - General05/20/23Team MemberRelationshipSpecialtyStart DateEnd Date Charan Casey DO [address] [place] [address], [place] [phone] PCP - General05/20/23 Goals (unrecognized section and [...] PRIMARY CLINICAL RECORDS. [facility]. provides no warranty or guarantee of the accuracy or completeness of information in this document.
== END 2025-11-01 10:05 | disposition home or self-care (01) ==
LOC: WC 10:06
PROVIDERS: PCP Family Medicine; Visit Provider Physician Assistant
DX: E11.621 Type 2 diabetes mellitus with foot ulcer (principal); L97.423 Non-pressure chronic ulcer of left heel and midfoot with necrosis of muscle
CPT/HCPCS: 11043

== ENCOUNTER 2025-11-15 08:53 | Outpatient (OUT) | payer OTHER, SELFPAY ==
--- OUTSIDE RECORDS SUMMARY | 2025-07-12 04:00 | XMS_ITS ---
Author Organization [facility] [place] Address [address] [place] [address] Care Team Providers Care Active Directory Systems Administrator Name Role Phone Charan Delgadillo DO Primary Care Provider Torres Cid [facility] [phone] REASON FOR VISIT 1 year f/u Encounters Encounter Location Date Provider Diagnosis [facility] (PODIATRY) [address] [place] [address] [address] [place] [address] 07/12/2025 Torres Fernandez Plan Of Treatment No Information Progress Notes * JORDYN JoyDOB:1960 (65 yo F)Acc No.[id number]:07/12/2025 UNLOCKED PROGRESS NOTE Follow Up Patient: Joy CHAVEZ :?Torres Fernandez DPM, MSDOB:1960???Age: 64 Y???Sex:FemaleDate:07/12/2025Phone:[phone]:[address], [place]-[id number]:Charan Delgadillo DO Subjective: * Chief Complaints: * 1 . 1 year f/u. * Medical History: Objective: * Vitals: Assessment: Plan: * Treatment: * * Electronic signature of Torres Fernandez DPM on 11/15/2025 at 08:56 AM ESTSign off status: PendingVisit Status:?OFF CANC (OFFICE CANCEL) * Provider: Dani Fernandez DPM, MS Date: 0 07/12/2025 Generated for Printing/Faxing/eTransmitting on:?11/15/2025 08:56 AM EST
--- OUTSIDE RECORDS SUMMARY | 2025-11-15 08:56 | XMS_ITS | Clinical Summary ---
Author Organization [facility] Address [address] [place] [address] Phone Care Team Providers Care Floor Layer Helper Name Role Phone Charan Delgadillo DO Primary Care Provider [phone] Rosalinda Cordova MD Unavailable [phone] Allergies Active AllergyReactionsCriticalityNoted DateCommentsErythromycin Base Nausea/xboagmwa78/05/2024LevofloxacinNausea/fkpyfswrSwkn13/25/2024 Head ache Medications MedicationSigDispense QuantityRefillsLast FilledStart DateEnd DateStatus allopurinol (Zyloprim) 100 mg tablet Take 1 tablet (100 mg) by mouth once daily.02/07/2022ctive ascorbic acid (Vitamin C) 1,000 mg tablet Take 1 tablet (1,000 mg) by mouth once daily.Active aspirin 81 mg EC tablet Take 1 tablet (81 mg) by mouth once daily.Active ergocalciferol (Vitamin D-2) 1.25 MG (82066 UT) capsule Take 1 capsule (50,000 Units) [...] 10 mg tablet Indications:Atherosclerotic heart disease of [place] coronary artery without angina pectorisTake 1 tablet (10 mg) by mouth 3 (three) times a week. 36 tablet 12:07 PM EST516Active nitroglycerin (Nitrostat) 0.4 mg SL tablet Indications:Chest pain, unspecifiedPlace 1 tablet (0.4 mg) under the tongue every 5 minutes if needed for chest pain. 100 tablet 12:07 PM EST5Active Active Problems ProblemNoted DateDiagnosed DateClass 2 obesity with body mass index (BMI) of 37.0 to 37.9 in adult4CAD (coronary artery disease)12/04/2023Elevated coronary artery calcium score12/04/2023iabetes jfgbvevd80/05/2024Essential vbotyefnrfgl05/05/9239Twixtvlgtjokcq02/05/2024Obstructive sleep apnea syndrome 12/04/2023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12/04/2023 Encounters DateTypeDepartmentCare YezjXceyojqtjcn63/10/2025Refill at [facility] [address] [address] Rosalinda Cordova MD Atherosclerotic heart disease of [place] coronary artery without angina pectoris; Chest pain, unspecifiedfrom Last 3 Months Immunizations ImmunizationAdministration DatesNext DueInfluenza, seasonal, injectable 10/16/2022Moderna SARS-CoV-2 Pqgonklxqov93/17/2022Pneumococcal conjugate vaccine, 13-valent (PREVNAR 13)12/02/2016Pneumococcal polysaccharide vaccine, 23-valent, age 2 years and older (PNEUMOVAX 23)11/30/2016,10/15/2016 Family History Medical HistoryRelationNameCommentsCABGFatherRelationNameStatusCommentsFather Social History Tobacco UseTypesPacks/DayYears UsedDateSmoking Tobacco: NeverSmokeless Tobacco: Never Tobacco Cessation:Counseling Given: Not Answered Alcohol UseStandard Drinks/WeekCommentsNever0 (1 standard drink = 0.6 oz pure alcohol)CommentsUnknownSex and Gender InformationValueDate RecordedSex Assigned at BirthNot on fileLegal KkoMfjouq88/26/2022 10:20 AM ESTGender IdentityNot on fileSexual OrientationNot on file Last Filed Vital Signs Vital SignReadingTime TakenCommentsBlood Jnnkdfba388/80008/25/2024 8:35 AM EDT Uciwk0581/26/2024 8:35 AM EDTTemperature--Respiratory Rate--Oxygen Saturation-- Inhaled Oxygen Concentration--Rjxllc980 kg (241 lb)08/25/2024 8:35 AM EDTHeight 170.2 cm (5' 7 )08/25/2024 8:35 AM EDTBody Mass Index37.75008/25/2024 8:35 AM EDT Plan of Treatment DateTypeDepartmentCare Team (Latest Contact Info)Etmolxakmdv58/03/2026 8:50 AM ESTOffice Visit at [facility] [address] [address] Rosalinda Cordova MD 703 [facility] 2, [facility] [address] [place] [address] Health MaintenanceDue DateLast DoneCommentsCT Jaaiynhaktfp1960Diabetes: Hemoglobin A1C1960Diabetes: Urine Protein Asdjkmiah1960FIT-DNA (Cologuard)1960FIT1960Lipid Panel1960Medicare Annual Wellness Visit (AWV)1960 2852Fefyqrbnnrkex1960MMR Vaccines (1 of 1 - Standard series)1Diabetes: Retinopathy Itbbdulzb91/03/1970Hepatitis C Screening 1978Cervical Cancer Jtvrfzdmc29/03/1981HPV/Tvakmv2111/01/1981Pap Smear 11/01/19812700Ufciefvkj01/03/2000RSV High Risk: (Elderly (60+) or Population) (1 - Risk 50-74 years 1-dose series)2010Pneumococcal Vaccine (3 of 3 - PCV20 or PCV21)/01/2017, 11/30/2016, 10/15/2016 DTaP/Tdap/Td Vaccines (2 - Td or Tdap)Influenza Vaccine (#1) /, 08/30/2021, 08/30/2019, Additional history existsCOVID-19 Vaccine ( season)/, 10/16/2022, 09/25/2021, Additional history existsBone Density Scan0424Jwtbcgnqago23/07/2033 3Colorectal Cancer Qdsqjttem89/07/2033Zoster VaccinesCompleted 01/27/2023, 10/28/2022HIB VaccinesAged OutNo longer eligible based on patient's age to complete this topicHPV VaccinesAged OutNo longer eligible based on patient's age to complete this topicHepatitis A VaccinesAged OutNo longer eligible based on patient's age to complete this topicHepatitis B VaccinesAged OutNo longer eligible based on patient's age to complete this topicIPV Vaccines Aged OutNo longer eligible based on patient's age to complete this topic Meningococcal VaccineAged OutNo longer eligible based on patient's age to complete this topicRotavirus VaccinesAged OutNo longer eligible based on patient's age to complete this topic Insurance Care Teams Team MemberRelationshipSpecialtyStart DateEnd Charan Delgadillo DO PCP - GeneralFamily Medicine02/22/24 Rosalinda Cordova MD 703 [facility], [address] [place] [address] Consulting PhysicianCardiology02/22/24
--- OUTSIDE RECORDS SUMMARY | 2025-11-15 08:56 | XMS_ITS | Clinical Summary ---
Author Organization [facility] Address [address] [place], [place] [address] Care Team Providers Care Locomotive Engineer Name Role Phone Charan Delgadillo DO Primary Care Provider [phone] Allergies Active AllergyReactionsCriticalityNoted DateCommentsErythromycinGI Upset 11/12/2012 Medications [...] Date RecordedSex Assigned at BirthNot on fileLegal SliRrzlol61/02/2012 8:57 AM ESTGender IdentityNot on fileSexual OrientationNot on file Last Filed Vital Signs Vital SignReadingTime TakenCommentsBlood Sqjrhwev762/72012/23/2012 1:14 PM EST Kmmqm616912/23/2012 1:14 PM JIZKlohsltyuix45.7 ??C (98.1 ??F)12/08/2012 6:43 AM ESTRespiratory Drdh019612/08/2012 6:43 AM ESTOxygen Hcbaitwxpu13%12/08/2012 6:43 AM ESTInhaled Oxygen Concentration--Mwoprj93 kg (216 lb 1.6 oz)12/23/2012 1:14 PM EYKMwqcnc394.2 cm (5' 7 )11/29/2012 10:21 AM ESTBody Mass Index33.85 11/29/2012 10:21 AM EST Plan of Treatment Health MaintenanceDue DateLast DoneCommentsAnxiety Tmqccyidq60/03/1978Depression Chsehojnc26/03/1978HIV Jkvcbouhh67/03/1978Hepatitis C Tfzyrambq91/03/1978 DTaP,Tdap,Td Vaccine (1 - Tdap)1979Mammogram Ituexixym08/03/2000CT Nenctuwpebvv69/03/2005Cologuard (FIT-DNA)11/01/20058945Sgjbjebqubb13/03/2005 Colorectal Cancer Jydrjmlrf12/03/2005Fecal Occult Blood2005Lipid Screening 11/01/20054435Zzrgjpjarikge33/03/2005Pneumococcal Vaccine: 50+ (1 of 1 - PCV) 2010Shingrix Vaccine (1 of 2)2010Diabetes Anvqewjye31/31/2015 11/29/2012Covid-19 Vaccine (1 - season)2025Influenza Vaccine (#1) 2025dvance Directive Hvexbfxoji08/03/2025one Density Ulbrsdwna78/03/2025 RSV Vaccine (1 - 1-dose 75+ series)2035 Procedures Procedure NamePriorityDate/TimeAssociated DiagnosisCommentsBASIC METABOLIC PANEL Ruwulzo4011/29/2012 10:11 AM EST Hyperparathyroidism, unspecified Preoperative examination, unspecified from Last 3 Months or Most Recently Relevant to Health Maintenance Results * (ABNORMAL) BASIC METABOLIC PNL (11/29/2012 10:11 AM EST)ComponentValueRef RangeTest MethodAnalysis TimePerformed AtPathologist TmrpocuzgNlwvehr997(H)65 - 100 mg/dLUNIV[facility]ITY [facility]ALS [facility] ISMXALWIJKJLG078 - 25 mg/dLUNIVERSITY H[facility]ITALS [facility] LABORATORYCreatinine0.780.70 - 1.40 mg/dLUNIVERSITY H[facility]ITALS [facility] LABORATORY Pbdtep152336 - 148 mmol/LCHOCKING VALLEY [facility] LABORATORYPotassium4.43.5 - 5.0 mmol/LC[facility] FSYRKPKHHCIcnfhupj19(L)98 - 110 mmol/LCHOCKING VALLEY COMMUN[facility] QYIQHUWNREGU63297 - 32 mmol/[facility] LABORATORYAnion Gap16(H)0 - 15 mmol/[facility] ENFSLRFFAGPglvume66.4(H)8.5 - 10.5 mg/dLUNIVERSITY [facility]ITALS [facility] LABORATORYeGFR->60UN[facility] LABORATORYeGFR-All Other Races>60.[facility] Comment: eGFR (Estimated GFR) [...] Result Performing OrganizationAddressCity/State/ZIP CodePhone Number [facility] [address] [place] [address] from Last 3 Months or Most Recently Relevant to Health Maintenance Insurance Care Teams Team MemberRelationshipSpecialtyStart DateEnd Date Charan Delgadillo DO [address] [place] [address] PCP - GeneralFamily Nstifmoo38/10/12
--- OUTSIDE RECORDS SUMMARY | 2025-11-15 08:56 | XMS_ITS | Encounter Summary ---
Author Organization [facility] Address [address] [facility] [place] [address] Care Team Providers Care Cone Marker Name Role Phone Brysonbryn Charan Louise DO Primary Care Provider [phone] Reason for Visit * ReasonCommentsMed Refill Encounter Details DateTypeDepartmentCare Team (Latest Contact Info)Dkineiyjeak45/14/2025Refill [facility] [address] [facility] [facility] [address] [place] [address] Shaina Figueroa DO [address] [facility] [address] [place] [address] Type 2 diabetes mellitus with peripheral neuropathy (HCC) Social History Tobacco UseTypesPacks/DayYears UsedDateSmoking Tobacco: NeverSmokeless Tobacco: NeverAlcohol UseStandard Drinks/WeekCommentsNever0 (1 standard drink = 0.6 oz pure alcohol)caffeine: 1-2 cups per day myfvxsM2625 Health LiteracyAnswerDate RecordedHow often do you need [...] relatives?Once a week07/26/2025How often do you attend mandaeism or evangelical services?More than 4 times per year07/26/2025Do you belong to any clubs or organizations such as mandaeism groups, unions, fraEl[employer] or athletic groups, or school groups?No07/26/2025How often [...] at all 07/26/2025PHQ-2AnswerDate RecordedPatient Health Questionnaire-2 Score0 10/24/2025[place] [facility] - Occupational Stress QuestionnaireAnswerDate RecordedDo you feel stress - tense, restless, nervous, or anxious, or unable to sleep at night because yourmind is troubled all the time - these days?To some agevcm0302/08/2024Exercise Vital SignAnswerDate Recorded On average, how many days per week do you engage in moderate to strenuous exercise (like a brisk walk)?Patient ibcmcbti06/11/2024On average, how many minutes do you engage in exercise at this level?Patient rgcrbmud60/11/2024Hunger Vital SignAnswerDate RecordedWithin the past 12 months, [...] were you homeless or living in a nursing home (including now)?No07/26/2025CommentsUnknownSex and Gender InformationValueDate RecordedSex Assigned at InanvGzinwa69/21/2023 8:32 AM EDT Legal GoxGcnxxq71/15/2023 7:19 PM EDTGender EdaegloyVivkfp49/21/2023 8:32 AM EDT Sexual OrientationNot on filedocumented as of this encounter Miscellaneous Notes * Telephone Encounter - Kimberley Finn LPN - 11/13/2025 12:09 PM EST Last ov 10/24/[address]25 RX sent in per Dr Merritt documented in this encounter Plan of Treatment DateTypeDepartmentCare Team (Latest Contact Info)Sortoembqfj08/24/2026 8:45 AM ESTOffice Visit [facility] [address] [place] [address] Shaina Figueroa DO [address] [place] [address] documented as of this encounter Visit Diagnoses Diagnosis Type 2 diabetes mellitus with peripheral neuropathy (HCC) documented in this encounter Care Teams Team MemberRelationshipSpecialtyStart DateEnd Date Charan Delgadillo DO [facility] [place] [address] PCP - General05/20/23documented as of this encounter
--- OUTSIDE RECORDS SUMMARY | 2025-11-15 08:57 | XMS_ITS | Patient Health Record ---
Author Organization [facility] [place] Address [address] [place] [address] Care Team Providers Care Hris Specialist Name Role Phone Charan Delgadillo DO Primary Care Provider Torres Cid [phone] Allergies Allergen (clinical drug ingredient) Drug/Non Drug [...] due to ty pe 2 diabetes mellitus (9991602510476) 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.621) ActiveconfirmedProblemIngrowing nail (862883990)Ingrowing nail (L60.0)Active confirmedProblemChronic ulcer of foot (589225272)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)ActiveconfirmedProblemNon- pressure chronic ulcer of other part of left foot limited to breakdown of skin (L97.521)ActiveconfirmedProblemArthropathy associated with a neurological disorder (07858368)Charcot's joint, right ankle and foot (M14.671)Active confirmedProblemLocalized, primary osteoarthritis of the ankle and/or foot (497101618)Primary osteoarthritis, left ankle and foot (M19.072)Activeconfirmed ProblemAcquired hammer toe of left foot (9265625690147221)Other hammer toe(s) (acquired), left foot (M20.42)ActiveconfirmedProblemDeformity of lower leg (499096434)Other specified acquired deformities of right lower leg (M21.861) ActiveconfirmedProblemArthralgia of the ankle and/or foot (603175218)Pain in right ankle and joints of right foot (M25.571)ActiveconfirmedProblemArthralgia of the ankle and/or foot (473161578)Pain in left ankle and joints of left foot (M25.572)ActiveconfirmedProblemPain in right foot (260456414995402)Pain in right foot (M79.671)ActiveconfirmedProblemPain in left foot (916982353059269)Pain in left foot (M79.672)ActiveconfirmedProblemPseudarthrosis after fusion or arthrodesis (079433450)Pseudarthrosis after fusion or arthrodesis (M96.0)Active confirmedProblemPain associated with internal prosthetic device (disorder) (969127878)Pain due to internal orthopedic prosthetic devices, implants and grafts, initial encounter (T84.84XA)ActiveconfirmedProblemHypertension (10749698)HTN (hypertension) (I10)ActiveconfirmedProblemDiabetic nephropathy (271372851)Diabetic nephropathy (E11.21)ActiveconfirmedProblemHeart disease (88338657)Heart disease (I51.9)ActiveconfirmedProblemChronic ulcer of foot (808983241)Non-pressure chronic ulcer of left heel and midfoot with necrosis of muscle (L97.423)ActiveconfirmedProblemArthropathy associated with a neurological disorder (54985103)Charcot's joint of left foot (M14.672)ActiveconfirmedProblem Dehiscence of surgical wound (disorder) (51590163)Postoperative wound dehiscence, subsequent encounter (T81.31XD)ActiveconfirmedProblemNon-pressure chronic ulcer of left heel and midfoot limited to breakdown of skin (L97.421) ActiveconfirmedProblemHypercholesterolemia (13471806)Hypercholesterolemia (E78.00)ActiveconfirmedProblemArthropathy associated with a neurological disorder (69082467)Charcot's joint of right foot (M14.671)ActiveconfirmedProblem Acquired abduction deformity of left foot (M21.6X2)ActiveconfirmedProblem Diabetes mellitus (72689175)Diabetes mellitus (E11.9)Activeconfirmed Plan Of Treatment Pending Test Test Name Order Date POINT OF CARE GLUCOSE 04/13/2023 PROF CHEM 8 (BAS METB) 03/31/2023 XR foot LAURA min 3V 06/22/2024 Insurance Providers Payer Name Payer Address Payer Phone Subscriber Number Group Number Insured Name Patient Relationship to Insured Coverage Start Date Coverage End Date O [address] [place], [place] [id number] Joy Asher Self - patient is the [...] Spine FusionLumbar Spine FusionLT Ankle exploration/bx Dr SeymourDygtnq2776 Heart Hwbetm4703/27/2022LT midfoot fustion with corrective osteotomy, talonavicular/subtaler joint fustions, harvest of distal tibial bone graft, gastrocnemius recession/exostectomy Dr Fernandez12/29/2022removal deep implanted hardware left foot04/13/2023ack injectionsHospitalization History Reason Date(Month/Year) see above
--- OUTSIDE RECORDS SUMMARY | 2025-11-15 08:57 | XMS_ITS | Clinical Summary ---
Author Organization [facility] Address [address] [place] [address] Care Team Providers Care Mobile Architect Name Role Phone Brysonbryn Charan Dani BASSETT Primary Care Provider [phone] Allergies Active AllergyReactionsCriticalityNoted DateCommentsErythromycinUnknown 05/15/2025Erythromycin BaseNausea Only05/19/2023 Other Reaction(s): Abdominal Pain, nausea LevofloxacinGI xshlqlexycuAfqu95/25/2024 Head ache Other Reaction(s): hypoglycemia Medications MedicationSigDispense [...] MOUTH ONCE DAILY ON mondays, wednesdays, AND vzyzycg1511/12/2022 Active pregabalin (Lyrica) 150 MG capsule Take 150 mg by mouth at bedtimeActive Continuous Blood Gluc Frame Coverer (Dexcom G7 Frame Coverer) device USE KEHTMYWQ71/17/2023ctive Continuous Blood Gluc Sensor (Dexcom G7 Sensor) [...] insulin pen needle 31G X [facility] Indications:Type 2 diabetes mellitus with peripheral neuropathy [...] (max daily 50 units) 15 mL 5Active Semaglutide,0.25 or 0.5MG/DOS, (Ozempic, 0.25 or 0.5 MG/DOSE,) 2 MG/3ML solution pen-injector Indications:Type 2 diabetes mellitus with peripheral neuropathy (HCC)Inject 0.5 mg under the skin 1 (one) time per week 3 mL 5Active Insulin Degludec FlexTouch 200 UNIT/ML solution pen-injector Indications:Type 2 diabetes mellitus with peripheral neuropathy (HCC)Inject 30 Units under the skin Daily 9 mL 3125Active insulin degludec (Tresiba FlexTouch) 200 UNIT/ML injection Indications:Type 2 diabetes mellitus with peripheral neuropathy (HCC)Inject 30 Units under the skin Daily 9 mL Discontinued(Dose adjustment) HumaLOG KWIKPEN 100 UNIT/ML injection Indications:Type 2 diabetes mellitus with peripheral neuropathy (HCC)10 units breakfast, 14 units dinner plus correction 1:30 > 150 mg/dl (max daily 50 units) 15 mL 309/1670887712/24/2024Discontinued(Dose adjustment) insulin degludec (Tresiba FlexTouch) 200 UNIT/ML injection Indications:Type 2 diabetes mellitus with peripheral neuropathy (HCC)Inject 26 Units under the skin Daily 9 mL Discontinued Active Problems ProblemNoted DateDiagnosed DateType 2 diabetes mellitus with both eyes affected by mild nonproliferative retinopathy without macular edema, with long-term current use of wxcshxl8604/21/2024Type 2 diabetes mellitus with peripheral /13/2023 Assessment & Plan (10/24/2025 11:23 AM EST): [...] Jama Lakeshia control is stable overall. , The [...] 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 lvvcbpmmaoh08/13/2023 Assessment & Plan (02/11/2024 9:19 PM EDT): [...] is to call in between appointments if theyhave any problems or questions. Joy J Lakeshia control is stable overall. , Will stay on current medications. , Discussed dietary changes at length. Encouraged to limit simple carbs and focus more on healthy protein/fat with all mealsand snacks. They should also avoid any sugary drinks. , Instructions given today include: Insulin instructions and Dietary education Long-term insulin use10/12/2023Spondylolisthesis at L3-L4 level10/12/2023S/P laparoscopic xhlevgutnmbdelp46/13/2023Other hammer toe(s) (acquired), left foot 10/12/2023lass 2 severe obesity with serious comorbidity and body mass index (BMI) of 35.0 to 35.9 in adult10/12/2023arpal tunnel syndrome of right wrist 01/27/2020Chronic foot ulcer04/13/2018 Encounters DateTypeDepartmentCare CqmpZtiuxpduaiq87/14/2025Refill [facility] [address] [place] [address] Shaina Figueroa, DO Type 2 diabetes mellitus with peripheral neuropathy (HCC)10/24/2025 10:30 AM EST Office Visit [facility] [address] [place] [address] Shaina Figueroa, DO Type 2 diabetes mellitus [...] (BMI) of35.0 to 35.9 in adult10/24/2025amboo flowsheet [facility] [address] [place] [address] Shaina Figueroa, 10/24/20254097Xoqfhi61/12/2025Telephone [facility] [address] [place] [address] Shaina Figueroa, DO Medication Qreougfp30/27/2025bstract [facility] [address] [place] [address] Luisito Seymour, DPM 09/25/2025bstract [facility] [address] [place] [address] Luisito Seymour, DPM from Last 3 Months Immunizations ImmunizationAdministration DatesNext DueInfluenza, High Dose Seasonal, Preservative Free10/16/2022Influenza, Usfcqapghjz22/17/2022,12/02/2016, 09/08/2012Influenza, injectable, quadrivalent, preservative free08/30/2019 Influenza, seasonal, zfadulmudz97/01/2019,08/30/2018Influenza, seasonal, injectable, preservative free08/30/2018,12/02/2016Influenza, seasonal, intradermal, preservative free08/30/2021Moderna SARS-CoV-2 Booster Vaccination 09/25/2021Moderna SARS-CoV-2 Qflmxlulngt14/28/2021neumococcal Conjugate PCV 13 12/02/2016Pneumococcal Polysaccharide UNVX2805,10/15/2016Tdap1 Zoster, Smrhfsggqos11/28/2023,10/28/2022 Family History Medical HistoryRelationNameCommentsDiabetesBrotherNo Known ProblemsDaughter Atrial fibrillationFatherCoronary artery diseaseFatherDementiaFatherHeart diseaseFatherHypertensionFatherParkinsonismFatherSleep apneaFatherAsthmaMother HypertensionMotherSleep apneaMotherDiabetesPaternal GrandfatherDiabetesPaternal GrandmotherDiabetesSiblingHypertensionSonRelationNameStatusCommentsBrotherAlive2 ChildAlive2 sons 1 daughterDaughterAliveFatherDeceasedMotherAlivePaternal GrandfatherDeceasedPaternal GrandmotherDeceasedSiblingAlive2 brothersSonAlive2 Social History Tobacco UseTypesPacks/DayYears UsedDateSmoking Tobacco: NeverSmokeless Tobacco: Never Tobacco Cessation:Counseling Given: Not Answered Alcohol UseStandard Drinks/WeekCommentsNever0 (1 standard drink = 0.6 oz pure alcohol)caffeine: 1-2 cups per day oifbwkO0750 Health LiteracyAnswerDate RecordedHow often do you need [...] relatives?Once a week07/26/2025How often do you attend moravian or mosque services?More than 4 times per year07/26/2025Do you belong to any clubs or organizations such as moravian groups, unions, fraternal [...] at all 07/26/2025PHQ-2AnswerDate RecordedPatient Health Questionnaire-2 Score0 10/24/2025[facility] [place] [facility] - Occupational Stress QuestionnaireAnswerDate RecordedDo you feel stress - tense, restless, nervous, or anxious, or unable to sleep at night because yourmind is troubled all the time - these days?To some veojsi6402/08/2024Exercise Vital SignAnswerDate Recorded On average, how many days per week do you engage in moderate to strenuous exercise (like a brisk walk)?Patient ipmxnhqf46/11/2024On average, how many minutes do you engage in exercise at this level?Patient lncxamca59/11/2024Hunger Vital SignAnswerDate RecordedWithin the past 12 months, [...] steady place to sleep or slept in tomkins coveelter (including now)?No 02/08/2024Housing Stability Vital SignAnswerDate RecordedIn the last 12 months, was there a time when you were not able to pay the mortgage or rent on time?No 07/26/2025In the past 12 months, how many times have you moved where you were living?t any time in the past 12 months, were you homeless or living in a chcf (including now)?No07/26/2025CommentsUnknownSex and Gender InformationValueDate RecordedSex Assigned at IpdfaGbxweq51/21/2023 8:32 AM EDT Legal OjaOnntwp82/15/2023 7:19 PM EDTGender OzqqtqnbEjfxla28/21/2023 8:32 AM EDT Sexual OrientationNot on file Last Filed Vital Signs Vital SignReadingTime TakenCommentsBlood Noxenaqy724/7810/24/2025 10:24 AM EST Mrngl684810/24/2025 10:24 AM INNHcecpemkvhx75.5 ??C (97.7 ??F)10/24/2025 10:24 AM ESTRespiratory Rate--Oxygen Uaqquzuhsl44%10/24/2025 10:24 AM ESTInhaled Oxygen Concentration--Wthggc605 kg (222 lb 3.2 oz)05/15/2025 10:29 AM NYLCdhooj893.6 cm (5' 6 )10/24/2025 10:24 AM ESTBody Mass Index35.8605/15/2025 10:29 AM EDT Plan of Treatment DateTypeDepartmentCare Team (Latest Contact Info)Iqeyhlunicb11/24/2026 8:45 AM ESTOffice Visit [facility] [address] [place] [address] Shaina Figueroa, [address] [place] [address] Health MaintenanceDue DateLast DoneCommentsCT Ubiekarpqmtk1960Colonoscopy 1960Colorectal Cancer Ebbjhzyps1960FIT-DNA1960FIT1960 FOBT1960 1377Ycvjwxfkxztxj1960Pap Smear1981Cervical Cancer Nzyuowbfz69/03/1990HPV/Zqyvyn9011/01/19907348Kfufurahm57/03/2000Pneumococcal Vaccine: 65+ Years (3 of 3 - PCV20 or PCV21)/01/2017, 11/30/2016, 10/15/2016 COVID-19 Vaccine ( season), 10/16/2022, 09/26/2021, Additional history existsInfluenza Vaccine (#1)5112/16/2021, 10/16/2022, 08/30/2021, Additional history exists Procedures Procedure NamePriorityDate/TimeAssociated DiagnosisCommentsPOCT GLYCOSYLATED HEMOGLOBIN (HGB A1C)Rumwqbm8910/24/2025 10:41 AM EST Type 2 diabetes mellitus with peripheral neuropathy (HCC) from Last 3 Months Results * POCT glycosylated hemoglobin (Hb A1C) docked device (10/24/2025 10:41 AM EST) ComponentValueRef RangeTest MethodAnalysis TimePerformed AtPathologist SignatureHemoglobin A1C7.5Specimen (Source)Anatomical Location / Laterality Collection Method / VolumeCollection TimeReceived TimeBloodVenous blood specimen / Ubytsqx3910/24/2025 10:41 AM EST Narrative Authorizing ProviderResult TypeResult StatusAlllucia Figueroa DOPOINT OF CARE TEST ENTER/EDIT ORDERABLESFinal Result from Last 3 Months Insurance Care Teams Team MemberRelationshipSpecialtyStart DateEnd Date Charan Delgadillo DO [address] [place] [phone] PCP - General05/20/23
== END 2025-11-15 08:54 | disposition home or self-care (01) ==
LOC: WC 08:54
PROVIDERS: PCP Family Medicine; Visit Provider Physician Assistant
DX: E11.621 Type 2 diabetes mellitus with foot ulcer (principal); L97.423 Non-pressure chronic ulcer of left heel and midfoot with necrosis of muscle
CPT/HCPCS: 29445

== ENCOUNTER 2025-11-20 11:12 | Outpatient (OUT) | payer OTHER, SELFPAY ==
--- OUTSIDE RECORDS SUMMARY | 2025-07-12 04:00 | XMS_ITS ---
Author Organization The [facility] in [place] Address [address] [place] [address] Care Team Providers Care Dive Master Name Role Phone Charan Delgadillo DO Primary Care Provider Torres Cid [facility] [phone] REASON FOR VISIT 1 year f/u Encounters Encounter Location Date Provider Diagnosis [facility] (PODIATRY) [address] [place] [address] [address] [place], [place] [address] 07/12/2025 Torres Fernandez Plan Of Treatment No Information Progress Notes * JORDYN oJyDOB:1960 (65 yo F)Acc No.[id number]:07/12/2025 UNLOCKED PROGRESS NOTE Follow Up Patient: Joy CHAVEZ :?Torres Fernandez DPM, MSDOB:1960???Age: 64 Y???Sex:FemaleDate:07/12/2025Phone:[phone]:[address] [place], [place]IC-[address]Yzu:Charan Delgadillo DO Subjective: * Chief Complaints: * 1 . 1 year f/u. * Medical History: Objective: * Vitals: Assessment: Plan: * Treatment: * * Electronic signature of Torres Fernandez DPM on 11/20/2025 at 11:15 AM ESTSign off status: PendingVisit Status:?OFF CANC (OFFICE CANCEL) * Provider: Dani Fernandez DPM, MS Date: 0 07/12/2025 Generated for Printing/Faxing/eTransmitting on:?11/20/2025 11:15 AM EST
--- OUTSIDE RECORDS SUMMARY | 2025-11-20 11:14 | XMS_ITS | Clinical Summary ---
Author Organization [facility] Address [address] [place] [address] Care Team Providers Care Resp Ther Name Role Phone Brysonbryn Charan Dani BASSETT Primary Care Provider [phone] Allergies Active AllergyReactionsCriticalityNoted DateCommentsErythromycinUnknown 05/15/2025Erythromycin BaseNausea Only05/19/2023 Other Reaction(s): Abdominal Pain, nausea LevofloxacinGI igguhiepdbtLzjm03/25/2024 Head ache Other Reaction(s): hypoglycemia Medications MedicationSigDispense [...] MOUTH ONCE DAILY ON mondays, wednesdays, AND foxrzsx1211/12/2022 Active pregabalin (Lyrica) 150 MG capsule Take 150 mg by mouth at bedtimeActive Continuous Blood Gluc Pad Extraction Tender (Dexcom G7 Pad Extraction Tender) device USE ZRRWVMKT80/17/2023ctive Continuous Blood Gluc Sensor (Dexcom G7 Sensor) [...] insulin pen needle 31G X 8 mm [facility] Indications:Type 2 diabetes mellitus with peripheral neuropathy [...] under the skin Daily 9 mL 5Active insulin degludec (Tresiba FlexTouch) 200 UNIT/ML injection Indications:Type 2 diabetes mellitus with peripheral neuropathy (HCC)Inject 30 Units under the skin Daily 9 mL Discontinued(Dose adjustment) HumaLOG KWIKPEN 100 UNIT/ML injection Indications:Type 2 diabetes mellitus with peripheral neuropathy (HCC)10 units breakfast, 14 units dinner plus correction 1:30 > 150 mg/dl (max daily 50 units) 15 mL 309/16Discontinued(Dose adjustment) insulin degludec (Tresiba FlexTouch) 200 UNIT/ML injection Indications:Type 2 diabetes mellitus with peripheral neuropathy (HCC)Inject 26 Units under the skin Daily 9 mL 311/679341/Discontinued Insulin Degludec FlexTouch 200 UNIT/ML solution pen-injector Indications:Type 2 diabetes mellitus with peripheral neuropathy (HCC)Inject 30 Units under the skin Daily 9 mL 312/20241201/Discontinued(Reorder) Active Problems ProblemNoted DateDiagnosed DateType 2 diabetes mellitus with both eyes affected by mild nonproliferative retinopathy without macular edema, with long-term current use of xpoepbq5304/21/2024Type 2 diabetes mellitus with peripheral ondtuggzod08/13/2023 Assessment & Plan (10/24/2025 11:23 AM EST): [...] J Lakeshia control is stable overall. , The [...] 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 jhobafzspsl36/13/2023 Assessment & Plan (02/11/2024 9:19 PM EDT): [...] Long-term insulin use10/12/2023Spondylolisthesis at L3-L4 level10/12/2023S/P laparoscopic axvkhpjsonttbmw56/13/2023Other hammer toe(s) (acquired), left foot 10/12/2023lass 2 severe obesity with serious comorbidity and body mass index (BMI) of 35.0 to 35.9 in adult10/12/2023arpal tunnel syndrome of right wrist 01/27/2020Chronic foot ulcer04/13/2018 Encounters DateTypeDepartmentCare ItxyOzdvenjgagr14/14/2025Refill [facility] [address] [place] [address] Shaina Figueroa, Type 2 diabetes mellitus with peripheral neuropathy (HCC)10/24/2025 10:30 AM EST Office Visit [facility] [address] [place] [address] Shaina Figueroa, 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 [...] (BMI) of35.0 to 35.9 in adult10/24/2025amboo flowsheet [facility] [address] [place] [address] Shaina Figueroa, 10/24/20257680Wwivqg28/12/2025Telephone [facility] [address] [place] [address] Petznick, Shaina M, DO Medication Wbubnrsl99/27/2025bstract [facility] [address] [place] [address] Luisito Seymour, ROSS 09/25/2025bstract [facility] [address] [place] [address] Luisito Seymour, ROSS from Last 3 Months Immunizations ImmunizationAdministration DatesNext DueInfluenza, High Dose Seasonal, Preservative Free10/16/2022Influenza, Ydwlikmxxit01/17/2022,12/02/2016, 09/08/2012Influenza, injectable, quadrivalent, preservative free08/30/2019 Influenza, seasonal, zebawtgdjh60/01/2019,08/30/2018Influenza, seasonal, injectable, preservative free08/30/2018,12/02/2016Influenza, seasonal, intradermal, preservative free08/30/2021Moderna SARS-CoV-2 Booster Vaccination 09/25/2021Moderna SARS-CoV-2 Mojinsqayov33/28/2021neumococcal Conjugate PCV 13 12/02/2016Pneumococcal Polysaccharide XAIH4369,10/15/2016Tdap1 Zoster, Xmtlxjpoahw20/28/2023,10/28/2022 Family History Medical HistoryRelationNameCommentsDiabetesBrotherNo Known ProblemsDaughter Atrial fibrillationFatherCoronary artery diseaseFatherDementiaFatherHeart diseaseFatherHypertensionFatherParkinsonismFatherSleep apneaFatherAsthmaMother HypertensionMotherSleep apneaMotherDiabetesPaternal GrandfatherDiabetesPaternal GrandmotherDiabetesSiblingHypertensionSonRelationNameStatusCommentsBrotherAlive2 ChildAlive2 sons 1 daughterDaughterAliveFatherDeceasedMotherAlivePaternal GrandfatherDeceasedPaternal GrandmotherDeceasedSiblingAlive2 brothersSonAlive2 Social History Tobacco UseTypesPacks/DayYears UsedDateSmoking Tobacco: NeverSmokeless Tobacco: Never Tobacco Cessation:Counseling Given: Not Answered Alcohol UseStandard Drinks/WeekCommentsNever0 (1 standard drink = 0.6 oz pure alcohol)caffeine: 1-2 cups per day yjfhbxM3218 Health LiteracyAnswerDate RecordedHow often do you need to have someone help you when you read instructions, pamphlets, or other written material from your doctor or pharmacy? Never07/26/2025Humiliation, Afraid, Rape, and Kick questionnaireAnswerDate RecordedWithin the last year, have you been afraid of your partner or ex-partner?No07/26/2025Within the last year, have you been humiliated or emotionally abused in other ways by your partner or ex-partner?07/26/2025 Within the last year, have you been [...] relatives?Once a week07/26/2025How often do you attend sikhism or pentecostalism services?More than 4 times per year07/26/2025Do you belong to any clubs or organizations such as sikhism groups, unions, fraternal or athletic groups, or [...] at all 07/26/2025PHQ-2AnswerDate RecordedPatient Health Questionnaire-2 Score0 10/24/2025[facility] [place] [facility] - Occupational Stress QuestionnaireAnswerDate RecordedDo you feel stress - tense, restless, nervous, or anxious, or unable to sleep at night because yourmind is troubled all the time - these days?To some ptwrdq9102/08/2024Exercise Vital SignAnswerDate Recorded On average, how many days per week do you engage in moderate to strenuous exercise (like a brisk walk)?Patient oznuvpso21/11/2024On average, how many minutes do you engage [...] times have you moved where you were living?008t any time in the past 12 months, were you homeless or living in a skilled nursing (including now)?No07/26/2025CommentsUnknownSex and Gender InformationValueDate RecordedSex Assigned at SfbrsNaqtuv28/21/2023 8:32 AM EDT Legal XojJiqkdq67/15/2023 7:19 PM EDTGender KbtdsxktAyibmb25/21/2023 8:32 AM EDT Sexual OrientationNot on file Last Filed Vital Signs Vital SignReadingTime TakenCommentsBlood Mkhqzkoh807/7810/24/2025 10:24 AM EST Ahiqg300410/24/2025 10:24 AM KQXHfsfzcevjrj44.5 ??C (97.7 ??F)10/24/2025 10:24 AM ESTRespiratory Rate--Oxygen Sbcbhliyxn07%10/24/2025 10:24 AM ESTInhaled Oxygen Concentration--Lrgfqz254 kg (222 lb 3.2 oz)05/15/2025 10:29 AM VLINirvch036.6 cm (5' 6 )10/24/2025 10:24 AM ESTBody Mass Index35.8605/15/2025 10:29 AM EDT Plan of Treatment DateTypeDepartmentCare Team (Latest Contact Info)Ptwpveowhhu16/24/2026 8:45 AM ESTOffice Visit [facility] [address] [place] [address] Shaina Figueroa, DO [address] [place] [address] Health MaintenanceDue DateLast DoneCommentsCT Qpupupwdgbnc1960Colonoscopy 1960Colorectal Cancer Lkbybrrrn1960FIT-DNA1960FIT1960 FOBT1960 8852Hdzqhpnvaqoss1960Pap Smear1981Cervical Cancer Ccuwimubw13/03/1990HPV/Jpqzvk8911/01/19903255Gfctboobs36/03/2000Pneumococcal Vaccine: 65+ Years (3 of 3 - PCV20 or PCV21)/01/2017, 11/30/2016, 10/15/2016 COVID-19 Vaccine ( season), 10/16/2022, 09/26/2021, Additional history existsInfluenza Vaccine (#1), 10/16/2022, 08/30/2021, Additional history exists Procedures Procedure NamePriorityDate/TimeAssociated DiagnosisCommentsPOCT GLYCOSYLATED HEMOGLOBIN (HGB A1C)Sgilscu9710/24/2025 10:41 AM EST Type 2 diabetes mellitus with peripheral neuropathy (HCC) from Last 3 Months Results * POCT glycosylated hemoglobin (Hb A1C) docked device (10/24/2025 10:41 AM EST) ComponentValueRef RangeTest MethodAnalysis TimePerformed AtPathologist SignatureHemoglobin A1C7.5Specimen (Source)Anatomical Location / Laterality Collection Method / VolumeCollection TimeReceived TimeBloodVenous blood specimen / Nivhtny1110/24/2025 10:41 AM EST Narrative Authorizing ProviderResult TypeResult StatusAlllucia Figueroa DOPOINT OF CARE TEST ENTER/EDIT ORDERABLESFinal Result from Last 3 Months Insurance Care Teams Team MemberRelationshipSpecialtyStart DateEnd Date Charan Delgadillo DO [address] [place] [phone] [facility]05/20/23
--- OUTSIDE RECORDS SUMMARY | 2025-11-20 11:14 | XMS_ITS | Clinical Summary ---
Author Organization [facility] Address [address] [place] [address] Phone Care Team Providers Care Food Taster Name Role Phone Charan Delgadillo DO Primary Care Provider [phone] Rosalinda Cordova MD Unavailable [phone] Allergies Active AllergyReactionsCriticalityNoted DateCommentsErythromycin Base Nausea/eciltwuo86/05/2024LevofloxacinNausea/fremxnedBxlf63/25/2024 Head ache Medications MedicationSigDispense QuantityRefillsLast FilledStart DateEnd DateStatus allopurinol (Zyloprim) 100 mg tablet Take 1 tablet (100 mg) by mouth once daily.02/07/2022ctive ascorbic acid (Vitamin C) 1,000 mg tablet Take 1 tablet (1,000 mg) by mouth once daily.Active aspirin 81 mg EC tablet Take 1 tablet (81 mg) by mouth once daily.Active ergocalciferol (Vitamin D-2) 1.25 MG (21221 UT) capsule Take 1 capsule (50,000 Units) [...] 10 mg tablet Indications:Atherosclerotic heart disease of [place] coronary artery without angina pectorisTake 1 tablet [...] (coronary artery disease)12/04/2023Elevated coronary artery calcium score12/04/2023iabetes bqniseok27/05/2024Essential xdhmdjoigwpg29/05/6141Hgpvigigbtcdua64/05/2024Obstructive sleep apnea syndrome 12/04/2023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12/04/2023 Encounters DateTypeDepartmentCare TjkhZvkmwizxmgz08/10/2025Refill at [facility] [address] [address] Rosalinda Cordova MD Atherosclerotic heart disease of [place] coronary artery without angina pectoris; Chest pain, unspecifiedfrom Last 3 Months Immunizations ImmunizationAdministration DatesNext DueInfluenza, seasonal, injectable 10/16/2022Moderna SARS-CoV-2 Obtuacizxyd13/17/2022Pneumococcal conjugate vaccine, 13-valent (PREVNAR 13)12/02/2016Pneumococcal polysaccharide vaccine, 23-valent, age 2 years and older (PNEUMOVAX 23)11/30/2016,10/15/2016 Family History Medical HistoryRelationNameCommentsCABGFatherRelationNameStatusCommentsFather Social History Tobacco UseTypesPacks/DayYears UsedDateSmoking Tobacco: NeverSmokeless Tobacco: Never Tobacco Cessation:Counseling Given: Not Answered Alcohol UseStandard Drinks/WeekCommentsNever0 (1 standard drink = 0.6 oz pure alcohol)CommentsUnknownSex and Gender InformationValueDate RecordedSex Assigned at BirthNot on fileLegal UreIwptuq71/26/2022 10:20 AM ESTGender IdentityNot on fileSexual OrientationNot on file Last Filed Vital Signs Vital SignReadingTime TakenCommentsBlood Jndyinai762/80008/25/2024 8:35 AM EDT Mxuan1413/26/2024 8:35 AM EDTTemperature--Respiratory Rate--Oxygen Saturation-- Inhaled Oxygen Concentration--Ugwohb498 kg (241 lb)08/25/2024 8:35 AM EDTHeight 170.2 cm (5' 7 )08/25/2024 8:35 AM EDTBody Mass Index37.75008/25/2024 8:35 AM EDT Plan of Treatment DateTypeDepartmentCare Team (Latest Contact Info)Xbwmdafcibw46/03/2026 8:50 AM ESTOffice Visit at [facility] [address] [address] Rosalinda Cordova MD [address] [facility], [facility] [address] [place] [address] Health MaintenanceDue DateLast DoneCommentsCT Ocmkxqdfspjn1960Diabetes: Hemoglobin A1C1960Diabetes: Urine Protein Ckxpymgts1960FIT-DNA (Cologuard)1960FIT1960Lipid Panel1960Medicare Annual Wellness Visit (AWV)1960 5778Vmovrikgwpsrz1960MMR Vaccines (1 of 1 - Standard series)1Diabetes: Retinopathy Zmnqozmfw07/03/1970Hepatitis C Screening 1978Cervical Cancer Kczqdxkmr06/03/1981HPV/Oaayqd5611/01/1981Pap Smear 11/01/19815057Etegdfual61/03/2000RSV High Risk: (Elderly (60+) or Population) (1 - Risk 50-74 years 1-dose series)2010Pneumococcal Vaccine (3 of 3 - PCV20 or PCV21)/01/2017, 11/30/2016, 10/15/2016 DTaP/Tdap/Td Vaccines (2 - Td or Tdap)COVID-19 Vaccine ( - season)/, 10/16/2022, 09/25/2021, Additional history existsInfluenza Vaccine (#1)/, 08/30/2021, 08/30/2019, Additional history existsBone Density Scan6360Xunnhuinvhk33/07/2033 3Colorectal Cancer Nylqfvkup04/07/2033Zoster VaccinesCompleted 01/27/2023, 10/28/2022HIB VaccinesAged OutNo longer eligible [...] - GeneralFamily Medicine02/22/24 Rosalinda Cordova MD [address] [facility], [address] [place] [address] Consulting PhysicianCardiology02/22/24
--- OUTSIDE RECORDS SUMMARY | 2025-11-20 11:14 | XMS_ITS | Clinical Summary ---
Author Organization [facility] Address [address] [place], [place] [address] Care Team Providers Care Termite Treater Helper Name Role Phone Charan Delgadillo DO Primary Care Provider [phone] Allergies Active AllergyReactionsCriticalityNoted DateCommentsErythromycinGI Upset 11/12/2012 Medications [...] Date RecordedSex Assigned at BirthNot on fileLegal RrnWnotty78/02/2012 8:57 AM ESTGender IdentityNot on fileSexual OrientationNot on file Last Filed Vital Signs Vital SignReadingTime TakenCommentsBlood Gfxhafpx129/72012/23/2012 1:14 PM EST Ktekg693012/23/2012 1:14 PM VTFOeiczyelesm84.7 ??C (98.1 ??F)12/08/2012 6:43 AM ESTRespiratory Yjtq826212/08/2012 6:43 AM ESTOxygen Kgsluehqwo81%12/08/2012 6:43 AM ESTInhaled Oxygen Concentration--Uwoajx23 kg (216 lb 1.6 oz)12/23/2012 1:14 PM NJBRlhnpb035.2 cm (5' 7 )11/29/2012 10:21 AM ESTBody Mass Index33.85 11/29/2012 10:21 AM EST Plan of Treatment Health MaintenanceDue DateLast DoneCommentsAnxiety Jvqikpjck04/03/1978Depression Pvmphkuax45/03/1978HIV Lzlbgpklm97/03/1978Hepatitis C Syrcdgwhd76/03/1978 DTaP,Tdap,Td Vaccine (1 - Tdap)1979Mammogram Tmhikcvmb79/03/2000CT Rcqrodcgveyv57/03/2005Cologuard (FIT-DNA)11/01/20056770Uvgfpksfekg17/03/2005 Colorectal Cancer Jqixwzsdt94/03/2005Fecal Occult Blood2005Lipid Screening 11/01/20057615Gfpxtapsapqnx27/03/2005Pneumococcal Vaccine: 50+ (1 of 1 - PCV) 2010Shingrix Vaccine (1 of 2)2010Diabetes Hvgmpxrnf23/31/2015 11/29/2012Covid-19 Vaccine (1 - season)2025Influenza Vaccine (#1) 2025dvance Directive Sqjvzznsec32/03/2025one Density Vuqvpicjn02/03/2025 RSV Vaccine (1 - 1-dose 75+ series)2035 Procedures Procedure NamePriorityDate/TimeAssociated DiagnosisCommentsBASIC METABOLIC PANEL Uledpjl5011/29/2012 10:11 AM EST Hyperparathyroidism, unspecified Preoperative examination, unspecified from Last 3 Months or Most Recently Relevant to Health Maintenance Results * (ABNORMAL) BASIC METABOLIC PNL (11/29/2012 10:11 AM EST)ComponentValueRef RangeTest MethodAnalysis TimePerformed AtPathologist FpmvlekkbPiruoqw317(H)65 - 100 mg/dLOUR LAD[facility] YGHEOZOTYBEEF780 - 25 mg/dLOUR L[facility] LABORATORYCreatinine0.780.70 - 1.40 mg/dLOUR LADY OF [facility] LABORATORY Mcolhd173700 - 148 mmol/LCST. RITA'S HOSPITAL LABORATORYPotassium4.43.5 - 5.0 mmol/LCOHIOHE[facility] MAIN YPKRJXVZLNBkqqcswk80(L)98 - 110 mmol/LCST. RITA'S HOSPITAL VLUCUTEPLXBT57495 - 32 mmol/LCOHIOHEALTH [facility] MAIN LABORATORYAnion Gap16(H)0 - 15 mmol/LCOHIOHEALTH [facility]IN LZDUHFTFCDPiaayvh97.4(H)8.5 - 10.5 mg/dLOUR [facility] LABORATORYeGFR->60[facility] LABORATORYeGFR-All Other Races>60.[facility] Comment: eGFR (Estimated GFR) Units of [...] Dexter LUKELABORATORYFinal Result Performing OrganizationAddressCity/State/ZIP CodePhone Number [facility] [address] [place] [address] from Last 3 Months or Most Recently Relevant to Health Maintenance Insurance Care Teams Team MemberRelationshipSpecialtyStart DateEnd Date Charan Delgadillo DO [address] [place] [address] PCP - GeneralFamily Gprvvmwa74/10/12
--- OUTSIDE RECORDS SUMMARY | 2025-11-20 11:14 | XMS_ITS | Encounter Summary ---
Author Organization [facility] Address [address] [facility] [place] [address] Care Team Providers Care Review Appraiser Name Role Phone Brysonbryn Charan Louise DO Primary Care Provider [phone] Reason for Visit * ReasonCommentsMed Refill Encounter Details DateTypeDepartmentCare Team (Latest Contact Info)Qwcwfjyroid31/14/2025Refill [facility] [address] [facility] [address] [place] [address] Shaina Figueroa DO [address] [facility] [address] [place] [address] Type 2 diabetes mellitus with peripheral neuropathy (HCC) Social History Tobacco UseTypesPacks/DayYears UsedDateSmoking Tobacco: NeverSmokeless Tobacco: NeverAlcohol UseStandard Drinks/WeekCommentsNever0 (1 standard drink = 0.6 oz pure alcohol)caffeine: 1-2 cups per day emkexnR2979 Health LiteracyAnswerDate RecordedHow often do you need [...] relatives?Once a week07/26/2025How often do you attend spiritism or mormonism services?More than 4 times per year07/26/2025Do you belong to any clubs or organizations such as spiritism groups, unions, [email or web address] or athletic groups, or school groups?No07/26/2025How often [...] at all 07/26/2025PHQ-2AnswerDate RecordedPatient Health Questionnaire-2 Score0 10/24/2025[facility] [place] [facility] - Occupational Stress QuestionnaireAnswerDate RecordedDo you feel stress - tense, restless, nervous, or anxious, or unable to sleep at night because yourmind is troubled all the time - these days?To some tkgxia9602/08/2024Exercise Vital SignAnswerDate Recorded On average, how many days per week do you engage in moderate to strenuous exercise (like a brisk walk)?Patient gfgepbrc59/11/2024On average, how many minutes do you engage in exercise at this level?Patient ehatnoue79/11/2024Hunger Vital SignAnswerDate RecordedWithin the past 12 months, [...] steady place to sleep or slept in [facility] (including now)?No 02/08/2024Housing Stability Vital SignAnswerDate [...] now)?No07/26/2025CommentsUnknownSex and Gender InformationValueDate RecordedSex Assigned at FwvudBaommd12/21/2023 8:32 AM EDT Legal DyrDuurfo99/15/2023 7:19 PM EDTGender QxkkrvrhXzifsa11/21/2023 8:32 AM EDT Sexual OrientationNot on filedocumented as of this encounter Miscellaneous Notes * Telephone Encounter - Kimberley Finn LPN - 11/13/2025 12:09 PM EST Last ov 10/24/2025 RX sent in per Dr Merritt documented in this encounter Plan of Treatment DateTypeDepartmentCare Team (Latest Contact Info)Rvpqbovxujk94/24/2026 8:45 AM ESTOffice Visit [facility] [address] [place] [phone] Shaina Figueroa DO [address] [place] [address] documented as of this encounter Visit Diagnoses Diagnosis Type 2 diabetes mellitus with peripheral neuropathy (HCC) documented in this encounter Care Teams Team MemberRelationshipSpecialtyStart DateEnd Date Charan Delgadillo DO [facility] [place] [address] PCP - General05/20/23documented as of this encounter
--- OUTSIDE RECORDS SUMMARY | 2025-11-20 11:15 | XMS_ITS | Patient Health Record ---
Author Organization [facility] [place] Address [address] [place] [address] Care Team Providers Care Guncotton Packer Name Role Phone Charan Delgadillo DO Primary Care Provider Torres Cid [phone] Allergies Allergen (clinical drug ingredient) Drug/Non Drug [...] due to ty pe 2 diabetes mellitus (9660089486602) 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.621) ActiveconfirmedProblemIngrowing nail (849161067)Ingrowing nail (L60.0)Active confirmedProblemChronic ulcer of foot (207631716)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)ActiveconfirmedProblemNon- pressure chronic ulcer of other part of left foot limited to breakdown of skin (L97.521)ActiveconfirmedProblemArthropathy associated with a neurological disorder (44302000)Charcot's joint, right ankle and foot (M14.671)Active confirmedProblemLocalized, primary osteoarthritis of the ankle and/or foot (191240605)Primary osteoarthritis, left ankle and foot (M19.072)Activeconfirmed ProblemAcquired hammer toe of left foot (5306621822481238)Other hammer toe(s) (acquired), left foot (M20.42)ActiveconfirmedProblemDeformity of lower leg (813449192)Other specified acquired deformities of right lower leg (M21.861) ActiveconfirmedProblemArthralgia of the ankle and/or foot (352601031)Pain in right ankle and joints of right foot (M25.571)ActiveconfirmedProblemArthralgia of the ankle and/or foot (114308594)Pain in left ankle and joints of left foot (M25.572)ActiveconfirmedProblemPain in right foot (462985992663790)Pain in right foot (M79.671)ActiveconfirmedProblemPain in left foot (002691399390764)Pain in left foot (M79.672)ActiveconfirmedProblemPseudarthrosis after fusion or arthrodesis (078881923)Pseudarthrosis after fusion or arthrodesis (M96.0)Active confirmedProblemPain associated with internal prosthetic device (disorder) (514933285)Pain due to internal orthopedic prosthetic devices, implants and grafts, initial encounter (T84.84XA)ActiveconfirmedProblemHypertension (92176030)HTN (hypertension) (I10)ActiveconfirmedProblemDiabetic nephropathy (171511374)Diabetic nephropathy (E11.21)ActiveconfirmedProblemHeart disease (35218095)Heart disease (I51.9)ActiveconfirmedProblemChronic ulcer of foot (067132411)Non-pressure chronic ulcer of left heel and midfoot with necrosis of muscle (L97.423)ActiveconfirmedProblemArthropathy associated with a neurological disorder (42649575)Charcot's joint of left foot (M14.672)ActiveconfirmedProblem Dehiscence of surgical wound (disorder) (54309119)Postoperative wound dehiscence, subsequent encounter (T81.31XD)ActiveconfirmedProblemNon-pressure chronic ulcer of left heel and midfoot limited to breakdown of skin (L97.421) ActiveconfirmedProblemHypercholesterolemia (84733705)Hypercholesterolemia (E78.00)ActiveconfirmedProblemArthropathy associated with a neurological disorder (28992673)Charcot's joint of right foot (M14.671)ActiveconfirmedProblem Acquired abduction deformity of left foot (M21.6X2)ActiveconfirmedProblem Diabetes mellitus (92507032)Diabetes mellitus (E11.9)Activeconfirmed Plan Of Treatment Pending Test Test Name Order Date POINT OF CARE GLUCOSE 04/13/2023 PROF CHEM 8 (BAS METB) 03/31/2023 XR foot LAURA min 3V 06/22/2024 Insurance Providers Payer Name Payer Address Payer Phone Subscriber Number Group Number Insured Name Patient Relationship to Insured Coverage Start Date Coverage End Date O [address] [place], [place] [id number] Joy Asher Self - patient is the [...] Spine FusionLumbar Spine FusionLT Ankle exploration/bx Dr SeymourAppygh2689 Heart Dgtvgo7003/27/2022LT midfoot fustion with corrective osteotomy, talonavicular/subtaler joint fustions, harvest of distal tibial bone graft, gastrocnemius recession/exostectomy Dr Fernandez12/29/2022removal deep implanted hardware left foot04/13/2023ack injectionsHospitalization History Reason Date(Month/Year) see above
== END 2025-11-20 11:13 | disposition home or self-care (01) ==
LOC: WC 11:12
PROVIDERS: PCP Family Medicine; Visit Provider Physician Assistant
DX: E11.621 Type 2 diabetes mellitus with foot ulcer (principal); L97.423 Non-pressure chronic ulcer of left heel and midfoot with necrosis of muscle
CPT/HCPCS: 29445

== ENCOUNTER 2025-11-29 09:16 | Outpatient (OUT) | payer OTHER, SELFPAY ==
--- OUTSIDE RECORDS SUMMARY | 2025-07-12 04:00 | XMS_ITS ---
Author Organization [facility] [place] Address [address] [place] [address] Care Team Providers Care Acting Teacher Name Role Phone Charan Delgadillo DO Primary Care Provider Torres Cid [facility] [phone] REASON FOR VISIT 1 year f/u Encounters Encounter Location Date Provider Diagnosis [facility] (PODIATRY) [address] [place] [address] [address] [place] [address] 07/12/2025 Torres Fernandez Plan Of Treatment No Information Progress Notes * JORDYN JoyDOB:1960 (65 yo F)Acc No.[id number]:07/12/2025 UNLOCKED PROGRESS NOTE Follow Up Patient: Joy CHAVEZ :?Torres Fernandez DPM, MSDOB:1960???Age: 64 Y???Sex:FemaleDate:07/12/2025Phone:[phone]:[address] [place], [place]Iuq:Charan Delgadillo DO Subjective: * Chief Complaints: * 1 . 1 year f/u. * Medical History: Objective: * Vitals: Assessment: Plan: * Treatment: * * Electronic signature of Torres Fernandez DPM on 11/29/2025 at 09:21 AM ESTSign off status: PendingVisit Status:?OFF CANC (OFFICE CANCEL) * Provider: Dani Fernandez DPM, MS Date: 0 07/12/2025 Generated for Printing/Faxing/eTransmitting on:?11/29/2025 09:21 AM EST
--- OUTSIDE RECORDS SUMMARY | 2025-11-29 09:21 | XMS_ITS | Clinical Summary ---
Author Organization [facility] Address [address] [place] [address] Care Team Providers Care Sales And Management Trainee Name Role Phone Brysonmarybeth Charan Dani BASSETT Primary Care Provider [phone] Allergies Active AllergyReactionsCriticalityNoted DateCommentsErythromycinUnknown 05/15/2025Erythromycin BaseNausea Only05/19/2023 Other Reaction(s): Abdominal Pain, nausea LevofloxacinGI vqjwcvyylueXnka06/25/2024 Head ache Other Reaction(s): hypoglycemia Medications MedicationSigDispense [...] MOUTH ONCE DAILY ON mondays, wednesdays, AND ugvxlue7111/12/2022 Active pregabalin (Lyrica) 150 MG capsule Take 150 mg by mouth at bedtimeActive Continuous Blood Gluc Check Writer Salesperson (Dexcom G7 Check Writer Salesperson) device USE WJGLPWCU84/17/2023ctive Continuous Blood Gluc Sensor (Dexcom G7 Sensor) [...] insulin pen needle 31G X 8 mm [facility] Indications:Type 2 diabetes mellitus with peripheral neuropathy [...] under the skin Daily 9 mL Discontinued Insulin Degludec FlexTouch 200 UNIT/ML solution pen-injector Indications:Type 2 diabetes mellitus with peripheral neuropathy (HCC)Inject 30 Units under the skin Daily 9 mL Discontinued(Reorder) Active Problems ProblemNoted DateDiagnosed DateType 2 diabetes mellitus with both eyes affected by mild nonproliferative retinopathy without macular edema, with long-term current use of mmoqcyu9504/21/2024Type 2 diabetes mellitus with peripheral nymgzdkyjf16/13/2023 Assessment & Plan (10/24/2025 11:23 AM EST): [...] Long-term insulin use10/12/2023Spondylolisthesis at L3-L4 level10/12/2023S/P laparoscopic mmnryljoztiewsf04/13/2023Other hammer toe(s) (acquired), left foot 10/12/2023lass 2 severe obesity with serious comorbidity and body mass index (BMI) of 35.0 to 35.9 in adult10/12/2023arpal tunnel syndrome of right wrist 01/27/2020Chronic foot ulcer04/13/2018 Encounters DateTypeDepartmentCare PkaeKoavfcyruox53/14/2025Refill [facility] [address] [place] [phone] Shaina Figueroa, Type 2 diabetes mellitus with peripheral neuropathy (HCC)10/24/2025 10:30 AM EST Office Visit [facility] [address] [place] [address] Shaina Figueroa, Type 2 diabetes mellitus with [...] (BMI) of35.0 to 35.9 in adult10/24/2025amboo flowsheet [facility] [address] [place] [address] Shaina Figueroa, DO 10/24/20251069Sbzyoc08/12/2025Telephone [facility] [address] [place] [address] Shaina Figueroa, DO Medication Mjvwlniv14/27/2025bstract [facility] [address] [place] [address] Luisito Seymour DPM 09/25/2025bstract [facility] [address] [place] [address] Luisito Seymour DPM from Last 3 Months Immunizations ImmunizationAdministration DatesNext DueInfluenza, High Dose Seasonal, Preservative Free10/16/2022Influenza, Dajwbsgeorq02/17/2022,12/02/2016, 09/08/2012Influenza, injectable, quadrivalent, preservative free08/30/2019 Influenza, seasonal, ramjsfkqco33/01/2019,08/30/2018Influenza, seasonal, injectable, preservative free08/30/2018,12/02/2016Influenza, seasonal, intradermal, preservative free08/30/2021Moderna SARS-CoV-2 Booster Vaccination 09/25/2021Moderna SARS-CoV-2 Mwthrjxjqoq14/28/2021neumococcal Conjugate PCV 13 12/02/2016Pneumococcal Polysaccharide CQRQ5699,10/15/2016Tdap1 Zoster, Pppldqqhiio92/28/2023,10/28/2022 Family History Medical HistoryRelationNameCommentsDiabetesBrotherNo Known ProblemsDaughter Atrial fibrillationFatherCoronary artery diseaseFatherDementiaFatherHeart diseaseFatherHypertensionFatherParkinsonismFatherSleep apneaFatherAsthmaMother HypertensionMotherSleep apneaMotherDiabetesPaternal GrandfatherDiabetesPaternal GrandmotherDiabetesSiblingHypertensionSonRelationNameStatusCommentsBrotherAlive2 ChildAlive2 sons 1 daughterDaughterAliveFatherDeceasedMotherAlivePaternal GrandfatherDeceasedPaternal GrandmotherDeceasedSiblingAlive2 brothersSonAlive2 Social History Tobacco UseTypesPacks/DayYears UsedDateSmoking Tobacco: NeverSmokeless Tobacco: Never Tobacco Cessation:Counseling Given: Not Answered Alcohol UseStandard Drinks/WeekCommentsNever0 (1 standard drink = 0.6 oz pure alcohol)caffeine: 1-2 cups per day exikbsM5869 Health LiteracyAnswerDate RecordedHow often do you need to have someone help you when you read instructions, pamphlets, or other written material from your doctor or pharmacy? Never07/26/2025Humiliation, Afraid, Rape, and Kick questionnaireAnswerDate RecordedWithin the last year, have you been afraid of your partner or ex-partner?No08/27/2025Within the last year, have you been humiliated [...] relatives?Once a week07/26/2025How often do you attend anabaptist or mormonism services?More than 4 times per year07/26/2025Do you belong to any clubs or organizations such as anabaptist groups, unions, fraternal or athletic groups, or [...] at all 07/26/2025PHQ-2AnswerDate RecordedPatient Health Questionnaire-2 Score0 10/24/2025[facility] [place] of Occupational Health - Occupational Stress QuestionnaireAnswerDate RecordedDo you feel stress - tense, restless, nervous, or anxious, or unable to sleep at night because yourmind is troubled all the time - these days?To some adomwy0802/08/2024Exercise Vital SignAnswerDate Recorded On average, how many days per week do you engage in moderate to strenuous exercise (like a brisk walk)?Patient xxlwpzya41/11/2024On average, how many minutes do you engage [...] steady place to sleep or slept in [place] (including now)?No 02/08/2024Housing Stability Vital SignAnswerDate RecordedIn the last 12 months, was there a time when you were not able to pay the mortgage or rent on time?No 07/26/2025In the past 12 months, how many times have you moved where you were living?t any time in the past 12 months, were you homeless or living in a care home (including now)?No07/26/2025CommentsUnknownSex and Gender InformationValueDate RecordedSex Assigned at BpootJeceda36/21/2023 8:32 AM EDT Legal VemBkunbp06/15/2023 7:19 PM EDTGender YjvrbggcWfuhco84/21/2023 8:32 AM EDT Sexual OrientationNot on file Last Filed Vital Signs Vital SignReadingTime TakenCommentsBlood Wefejthg614/7811 10:24 AM EST Rhjly737710/24/2025 10:24 AM TVJNflgutuezmb75.5 ??C (97.7 ??F)10/24/2025 10:24 AM ESTRespiratory Rate--Oxygen Wrggjgxlou44%10/24/2025 10:24 AM ESTInhaled Oxygen Concentration--Fhrqia562 kg (222 lb 3.2 oz)05/15/2025 10:29 AM TFRGuznmd601.6 cm (5' 6 )10/24/2025 10:24 AM ESTBody Mass Index35.8605/15/2025 10:29 AM EDT Plan of Treatment DateTypeDepartmentCare Team (Latest Contact Info)Xttqlzsgxlk31/24/2026 8:45 AM ESTOffice Visit [facility] [address] [place] [phone] Shaina Figueroa, [address] [place] [address] Health MaintenanceDue DateLast DoneCommentsCT Imwlqorpnyhm1960Colonoscopy 1960Colorectal Cancer Jllojebgo1960FIT-DNA1960FIT1960 FOBT1960 7232Xtxvaflmazrsl1960Pap Smear1981Cervical Cancer Botdzvueb75/03/1990HPV/Cbbque1611/01/19907964Xaijkxffy55/03/2000Pneumococcal Vaccine: 65+ Years (3 of 3 - PCV20 or PCV21)/01/2017, 11/30/2016, 10/15/2016 Influenza Vaccine (#1)511/, 10/16/2022, 08/30/2021, Additional history existsDiabetes: Hemoglobin R4HKarrxzoyylpi85/25/2025, 05/15/2025, 02/14/2025, Additional history exists Procedures Procedure NamePriorityDate/TimeAssociated DiagnosisCommentsPOCT GLYCOSYLATED HEMOGLOBIN (HGB A1C)Ynwkwfc1910/24/2025 10:41 AM EST Type 2 diabetes mellitus with peripheral neuropathy (HCC) from Last 3 Months Results * POCT glycosylated hemoglobin (Hb A1C) docked device (10/24/2025 10:41 AM EST) ComponentValueRef RangeTest MethodAnalysis TimePerformed AtPathologist SignatureHemoglobin A1C7.5Specimen (Source)Anatomical Location / Laterality Collection Method / VolumeCollection TimeReceived TimeBloodVenous blood specimen / Ahpfanm8010/24/2025 10:41 AM EST Narrative Authorizing ProviderResult TypeResult StatusAlllucia Figueroa DOPOINT OF CARE TEST ENTER/EDIT ORDERABLESFinal Result from Last 3 Months Insurance Care Teams Team MemberRelationshipSpecialtyStart DateEnd Date Charan Delgadillo DO [address] [place] [address] PCP - General05/20/23
--- OUTSIDE RECORDS SUMMARY | 2025-11-29 09:21 | XMS_ITS | Clinical Summary ---
Author Organization [facility] Address [address] [place], [place] [address] Care Team Providers Care Circle Saw Operator Name Role Phone Charan Delgadillo DO Primary Care Provider [phone] Allergies Active AllergyReactionsCriticalityNoted DateCommentsErythromycinGI Upset 11/12/2012 Medications [...] Date RecordedSex Assigned at BirthNot on fileLegal AtdKrltlj99/02/2012 8:57 AM ESTGender IdentityNot on fileSexual OrientationNot on file Last Filed Vital Signs Vital SignReadingTime TakenCommentsBlood Rhzlqlbh449/72012/23/2012 1:14 PM EST Fgafh994512/23/2012 1:14 PM UCNSwuuqqtqcct64.7 ??C (98.1 ??F)12/08/2012 6:43 AM ESTRespiratory Szuh396712/08/2012 6:43 AM ESTOxygen Ynxsnqagwg26%12/08/2012 6:43 AM ESTInhaled Oxygen Concentration--Fwekwf57 kg (216 lb 1.6 oz)12/23/2012 1:14 PM ZGVQtkesw939.2 cm (5' 7 )11/29/2012 10:21 AM ESTBody Mass Index33.85 11/29/2012 10:21 AM EST Plan of Treatment Health MaintenanceDue DateLast DoneCommentsAnxiety Ezcnwyvlv56/03/1978Depression Xveyjwxfu82/03/1978HIV Udpnrhiim70/03/1978Hepatitis C Jatlvwkay75/03/1978 DTaP,Tdap,Td Vaccine (1 - Tdap)1979Mammogram Vuqhvzpez95/03/2000CT Imrluspkzwds14/03/2005Cologuard (FIT-DNA)11/01/20056790Cjmewfvacru39/03/2005 Colorectal Cancer Cadadjqvu82/03/2005Fecal Occult Blood2005Lipid Screening 11/01/20056334Vousgcykktxgm06/03/2005Pneumococcal Vaccine: 50+ (1 of 1 - PCV) 2010Shingrix Vaccine (1 of 2)2010Diabetes Hcswhqvre89/31/2015 11/29/2012Covid-19 Vaccine (1 - season)2025Influenza Vaccine (#1) 2025dvance Directive Ingvhibzpm72/03/2025one Density Vaqrzbtqg60/03/2025 RSV Vaccine (1 - 1-dose 75+ series)2035 Procedures Procedure NamePriorityDate/TimeAssociated DiagnosisCommentsBASIC METABOLIC PANEL Gzpynty9711/29/2012 10:11 AM EST Hyperparathyroidism, unspecified Preoperative examination, unspecified from Last 3 Months or Most Recently Relevant to Health Maintenance Results * (ABNORMAL) BASIC METABOLIC PNL (11/29/2012 10:11 AM EST)ComponentValueRef RangeTest MethodAnalysis TimePerformed AtPathologist UvkzporlgLhdviaq948(H)65 - 100 mg/dLSUBURBAN [facility] LHXKFQYRVLCCJ661 - 25 mg/dLSUBURBAN COMMUNITY [facility]ITAL [facility] LABORATORYCreatinine0.780.70 - 1.40 mg/dLSUBURBAN COMM[facility] LABORATORY Vwkmqc199661 - 148 mmol/LCOHIOHEALTH [facility]OUTHE[facility] LABORATORYPotassium4.43.5 - 5.0 mmol/LCGLENBEIGH HOSPITAL MAIN UEFFBVVEPXUrksfniq97(L)98 - 110 mmol/LCOHIOHEALTH SOUTHEASTERN [facility] NYGNVOZUJDQW42220 - 32 mmol/LCGLENBEIGH HOSPITAL MAIN LABORATORYAnion Gap16(H)0 - 15 mmol/LCGLENBEIGH HOSPITAL MAIN CRJPPPEHFIXwaodvs65.4(H)8.5 - 10.5 mg/dLSUBURBAN COMM[facility]ITY [facility]ITAL & [facility] LABORATORYeGFR->60[facility] LABORATORYeGFR-All Other Races>60.[facility] Comment: eGFR (Estimated GFR) Units [...] Dexter LUKELABORATORYFinal Result Performing OrganizationAddressCity/State/ZIP CodePhone Number [facility] [address] [place] [address] from Last 3 Months or Most Recently Relevant to Health Maintenance Insurance Care Teams Team MemberRelationshipSpecialtyStart DateEnd Date Charan Delgadillo DO [address] [place] [address] PCP - GeneralFamily Kistkygm70/10/12
--- OUTSIDE RECORDS SUMMARY | 2025-11-29 09:21 | XMS_ITS | Clinical Summary ---
Author Organization [facility] [place] Address [address] [place] [address] Phone Care Team Providers Care Irrigation Worker Name Role Phone Charan Delgadillo DO Primary Care Provider [phone] Rosalinda Cordova MD Unavailable [phone] Allergies Active AllergyReactionsCriticalityNoted DateCommentsErythromycin Base Nausea//05/2024LevofloxacinNausea/wdurvxdtIbfy90/25/2024 Head ache Medications MedicationSigDispense QuantityRefillsLast FilledStart DateEnd DateStatus allopurinol (Zyloprim) 100 mg tablet Take 1 tablet (100 mg) by mouth once daily.02/07/2022ctive ascorbic acid (Vitamin C) 1,000 mg tablet Take 1 tablet (1,000 mg) by mouth once daily.Active aspirin 81 mg EC tablet Take 1 tablet (81 mg) by mouth once daily.Active ergocalciferol (Vitamin D-2) 1.25 MG (13330 UT) capsule Take 1 capsule (50,000 Units) [...] 10 mg tablet Indications:Atherosclerotic heart disease of saxman coronary artery without angina pectorisTake 1 tablet [...] (coronary artery disease)12/04/2023Elevated coronary artery calcium score12/04/2023iabetes yhvdzltp28/05/2024Essential xrbfaeujyvpk65/05/6739Kcpeppizhrcknm35/05/2024Obstructive sleep apnea syndrome 12/04/2023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12/04/2023 Encounters DateTypeDepartmentCare ArekTrtadndqqku65/10/2025Refill at [facility] [address] [address] Rosalinda Cordova MD Atherosclerotic heart disease of saxman coronary artery without angina pectoris; Chest pain, unspecifiedfrom Last 3 Months Immunizations ImmunizationAdministration DatesNext DueInfluenza, seasonal, injectable 10/16/2022Moderna SARS-CoV-2 Mhsnbjfmjrh01/17/2022Pneumococcal conjugate vaccine, 13-valent (PREVNAR 13)12/02/2016Pneumococcal polysaccharide vaccine, 23-valent, age 2 years and older (PNEUMOVAX 23)11/30/2016,10/15/2016 Family History Medical HistoryRelationNameCommentsCABGFatherRelationNameStatusCommentsFather Social History Tobacco UseTypesPacks/DayYears UsedDateSmoking Tobacco: NeverSmokeless Tobacco: Never Tobacco Cessation:Counseling Given: Not Answered Alcohol UseStandard Drinks/WeekCommentsNever0 (1 standard drink = 0.6 oz pure alcohol)CommentsUnknownSex and Gender InformationValueDate RecordedSex Assigned at BirthNot on fileLegal VknVqxjuw64/26/2022 10:20 AM ESTGender IdentityNot on fileSexual OrientationNot on file Last Filed Vital Signs Vital SignReadingTime TakenCommentsBlood Ajuwlafe654/80008/25/2024 8:35 AM EDT Zaiab7379/26/2024 8:35 AM EDTTemperature--Respiratory Rate--Oxygen Saturation-- Inhaled Oxygen Concentration--Uvqost543 kg (241 lb)08/25/2024 8:35 AM EDTHeight 170.2 cm (5' 7 )08/25/2024 8:35 AM EDTBody Mass Index37.75008/25/2024 8:35 AM EDT Plan of Treatment DateTypeDepartmentCare Team (Latest Contact Info)Dvmimdhjezt26/03/2026 8:50 AM ESTOffice Visit at [facility] [address] [address] Rosalinda Cordova MD [address] [facility] [address], [facility] [address] [place] [address] Health MaintenanceDue DateLast DoneCommentsCT Iyecibrlzlfz1960Diabetes: Hemoglobin A1C1960Diabetes: Urine Protein Mwevpldsr1960FIT-DNA (Cologuard)1960FIT1960Lipid Panel1960Medicare Annual Wellness Visit (AWV)1960 1788Sklckxbqtzjnp1960MMR Vaccines (1 of 1 - Standard series)1Diabetes: Retinopathy Xtcakelrr92/03/1970Hepatitis C Screening 1978Cervical Cancer Fscmpbwwc09/03/1981HPV/Szigwb5811/01/1981Pap Smear 11/01/19815320Mksyxpion28/03/2000RSV High Risk: (Elderly (60+) or Population) (1 - Risk 50-74 years 1-dose series)2010Pneumococcal Vaccine (3 of 3 - PCV20 or PCV21)/01/2017, 11/30/2016, 10/15/2016 DTaP/Tdap/Td Vaccines (2 - Td or Tdap)COVID-19 Vaccine ( - season)/, 10/16/2022, 09/25/2021, Additional history existsInfluenza Vaccine (#1)/, 08/30/2021, 08/30/2019, Additional history existsBone Density Scan0910Ljhhkxeughp45/07/2033 3Colorectal Cancer Cybtemsuc01/07/2033Zoster VaccinesCompleted 01/27/2023, 10/28/2022HIB VaccinesAged OutNo longer eligible [...] - GeneralFamily Medicine02/22/24 Rosalinda Cordova MD [address] [facility], [address] [place] [address] Consulting PhysicianCardiology02/22/24
--- OUTSIDE RECORDS SUMMARY | 2025-11-29 09:21 | XMS_ITS | Patient Health Record ---
Author Organization [facility] [place] Address [address] [place] [address] Care Team Providers Care Artificial Stone Applicator Name Role Phone Charan Delgadillo DO Primary Care Provider Torres Cid [phone] Allergies Allergen (clinical drug ingredient) Drug/Non Drug [...] due to ty pe 2 diabetes mellitus (6184077538705) 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.621) ActiveconfirmedProblemIngrowing nail (470327962)Ingrowing nail (L60.0)Active confirmedProblemChronic ulcer of foot (422401564)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)ActiveconfirmedProblemNon- pressure chronic ulcer of other part of left foot limited to breakdown of skin (L97.521)ActiveconfirmedProblemArthropathy associated with a neurological disorder (00759111)Charcot's joint, right ankle and foot (M14.671)Active confirmedProblemLocalized, primary osteoarthritis of the ankle and/or foot (967205159)Primary osteoarthritis, left ankle and foot (M19.072)Activeconfirmed ProblemAcquired hammer toe of left foot (6036260344696771)Other hammer toe(s) (acquired), left foot (M20.42)ActiveconfirmedProblemDeformity of lower leg (728070999)Other specified acquired deformities of right lower leg (M21.861) ActiveconfirmedProblemArthralgia of the ankle and/or foot (885497031)Pain in right ankle and joints of right foot (M25.571)ActiveconfirmedProblemArthralgia of the ankle and/or foot (897947496)Pain in left ankle and joints of left foot (M25.572)ActiveconfirmedProblemPain in right foot (634262988378982)Pain in right foot (M79.671)ActiveconfirmedProblemPain in left foot (918224267219114)Pain in left foot (M79.672)ActiveconfirmedProblemPseudarthrosis after fusion or arthrodesis (102406435)Pseudarthrosis after fusion or arthrodesis (M96.0)Active confirmedProblemPain associated with internal prosthetic device (disorder) (967332501)Pain due to internal orthopedic prosthetic devices, implants and grafts, initial encounter (T84.84XA)ActiveconfirmedProblemHypertension (55185345)HTN (hypertension) (I10)ActiveconfirmedProblemDiabetic nephropathy (922270648)Diabetic nephropathy (E11.21)ActiveconfirmedProblemHeart disease (10963177)Heart disease (I51.9)ActiveconfirmedProblemChronic ulcer of foot (467856861)Non-pressure chronic ulcer of left heel and midfoot with necrosis of muscle (L97.423)ActiveconfirmedProblemArthropathy associated with a neurological disorder (25566486)Charcot's joint of left foot (M14.672)ActiveconfirmedProblem Dehiscence of surgical wound (disorder) (19244557)Postoperative wound dehiscence, subsequent encounter (T81.31XD)ActiveconfirmedProblemNon-pressure chronic ulcer of left heel and midfoot limited to breakdown of skin (L97.421) ActiveconfirmedProblemHypercholesterolemia (83940537)Hypercholesterolemia (E78.00)ActiveconfirmedProblemArthropathy associated with a neurological disorder (74128742)Charcot's joint of right foot (M14.671)ActiveconfirmedProblem Acquired abduction deformity of left foot (M21.6X2)ActiveconfirmedProblem Diabetes mellitus (76507502)Diabetes mellitus (E11.9)Activeconfirmed Plan Of Treatment Pending Test Test Name Order Date POINT OF CARE GLUCOSE 04/13/2023 PROF CHEM 8 (BAS METB) 03/31/2023 XR foot LAURA min 3V 06/22/2024 Insurance Providers Payer Name Payer Address Payer Phone Subscriber Number Group Number Insured Name Patient Relationship to Insured Coverage Start Date Coverage End Date O [address] [place], [place] [id number] Joy Asher Self - patient is the [...] Spine FusionLumbar Spine FusionLT Ankle exploration/bx Dr [id number] Heart Sbbdrv3703/27/2022LT midfoot fustion with corrective osteotomy, talonavicular/subtaler joint fustions, harvest of distal tibial bone graft, gastrocnemius recession/exostectomy Dr Fernandez12/29/2022removal deep implanted hardware left foot04/13/2023ack injectionsHospitalization History Reason Date(Month/Year) see above
--- OUTSIDE RECORDS SUMMARY | 2025-11-29 09:22 | XMS_ITS | CCD ---
Author Organization [facility] Care Team Providers Care Lens Polisher Name Role Phone Charan Casey Unavailable Unavailable [...] Provider DO Charan Casey Primary Care Provider Eilud Rod Unavailable DO Charan Casey Primary Care Provider [phone] TIMOTEO Watts Attending Provider DO Charan Casey Primary Care Provider TIMOTEO Watts Attending Provider [phone] MD Federico Sepulveda Attending Provider [phone] MD Elpidio Whipple Attending Provider ACOSTA CASTRO [...] Scott Consulting Unavailable [employer] Unavailable [facility] [place], [address] HAIDER Primary [...] Attending Provider MD Elpidio Whipple Attending Provider [phone] Kuns, DO Charan Primary Care Provider [phone] MD Thierno Chatterjee Attending Provider MD Blas Ortiz Attending Provider MD Elpidio Whipple Attending Provider MD Yasmeen Treadwell Attending Provider Blas Bellamy Unavailable Kuns, DO Charan Primary Care Provider MD Blas Ortiz Attending Provider [phone] Kuns, DO Charan Attending Provider Kuns, DO Charan Primary Care Provider [phone] Kuns, DO Charan Primary Care Provider Kuns Charan BASSETT Primary Care Provider [phone] Rosalinda Torres MD Unavailable ROSALINDA TORRES Attending Unavailable CHARAN CASEY MINOR Primary Care Unavailable Kuns, DO Charan Primary Care Provider Kuns, DO Charan Attending Provider [phone] MD Blas Ortiz Attending Provider Kuns, DO Charan Primary Care Provider [phone] Kuns, DO Charan Attending Provider Kuns, DO Charan Primary Care Provider [phone] Kuns, DO Charan Primary Care Provider MD Blas Ortiz Attending Provider Kuns, DO Charan Primary Care Provider [phone] ROSS Castro Attending Provider Self, Referral Attending Provider Unavailable MD Blas Ortiz Attending Provider Kuns DO, Charan Primary Care Provider [phone] Acosta Castro DPM Attending Provider [phone] Self, Referral Attending Provider Unavailable Blas Ortiz MD Attending Provider Charan Casey MD Primary Care Provider [phone] Moni Becker MD Unavailable Kunbryn BASSETT, Charan P Primary Care Provider Kuns DO, Charan Primary Care Provider [phone] Nader Curry DO Attending Provider [phone] KunCharan clemente DO Attending Provider Kuns DO, Charan Primary Care Provider Blas Ortiz MD Attending Provider [phone] Kuns Charan BASSETT Primary Care Provider Nader Curry DO Attending Provider [phone] Nader Curry DO Attending Provider Jacinto BASSETT, Charan Primary Care Provider Charan Casey DO Attending Provider [phone] Nader Curry DO Attending Provider Jacinto DO, Charan Primary Care Provider [phone] Jacinto BASSETT, Charan P Primary Care Provider [phone] Kuns DO, Charan Primary Care Provider [phone] Brysons DO, Charan Attending Provider Blas Ortiz MD Attending Provider Jacinto BASSETT, Charan Primary Care Provider Acosta Castro DPM Attending Provider [phone] Blas Ortiz Admitting Unavailable Blas Ortiz Attending [...] Care Unavailable Gustavo Cuevas DO Attending Provider [phone] Karla Lyons MD Attending Provider [phone] Charan Casey DO Attending Provider SHAINA MUNROE Attending Unavailable SHAINA MUNROE Attending Unavailable SHAINA MUNROE Attending Unavailable CHARAN CASEY Referring Unavailable SHAINA MUNROE Attending Unavailable Charan Casey DO Primary Care Provider Allergies Allergy ClassificationReported Allergen(s)Allergy TypeDate of OnsetReaction(s) FacilityLincosamides (antibiotic) (1 source)ClindamycinDrug Eiumjnu54-65-3649phyy [facility] HospitalQuinolones (antibiotic) (1 source)levoFLOXacinDrug Zcipvcb28-12-3571wabqfanhfgrhSlbsskhso [facility] (20 sources)Erythromycin; Translations: [Erythromycin Base TABS]Drug Allergy 50-02-0070iicmqw, Nausea/vomiting, UnknownUnAvita Health System [facility] (20 sources)ClindamycinDrug Fatotul52-85-8674tfmg [facility] (20 sources)arzithomycinPropensity to adverse tjiexnzux54-59-1007vsrjhhf [facility] (20 sources)erythromycin base; Translations: [Erythromycin Base]Propensity to adverse orddfpthk13-62-3144Xmmufg OnlyGerman Hospital (2 sources)levoFLOXacinDrug AllergyhypoglycemiaNort [employer] Other (20 sources)levoFLOXacin; Translations: [LEVOFLOXACIN]Drug Yjxsrlv69-86-3611 Nausea/vomiting, GI intoleranceGerman Hospital Medications Current Medications MedicationDrug Class(es)DatesSig (Normalized)Sig (Original)allopurinol 100 mg oral tablet (20 sources)Xanthine Oxidase InhibitorStart: 06-15-2020 End: 42-79-8867pbfg 1 tablet by mouth in the morningallopurinol [...] sources)Platelet Aggregation Inhibitor, Nonsteroidal Anti-inflammatory Drug Start: 31-60-4903upiz 1 tablet by mouth once daily in [...] Sensor (Dexcom G7 Sensor) device (19 sources)Start: 91-87-9958Qfqnu-Glucose Sensor (Dexcom G7 Sensor) device Active 0 .Route September 11, 2024 11:00pm As directedStart: 48-30-0359Egcmy- Glucose Sensor (Dexcom G7 Sensor) device Active [...] 0.05 mg oral capsule (20 sources)Vitamin DStart: 68-22-3521txsb 1 capsule by mouth once daily Cholecalciferol (Vitamin D3) 50 mcg (2,000 unit) capsule Active 50 MCG PO Daily March 01, 2024 12:00am Complies with drug therapyStart: 63-13-2984IMG Vitamin D Maximum Strength 50 MCG (2000 UT) tablet Take by mouth Daily. 12/30/2022 Active clotrimazole 10 mg oral lozenge (1 source)Azole AntifungalStart: 17-22-4842Hsuxeewyhbmq 10 mg deshawn Active 10 MG MUCOUS MEM Five times daily July 12, 2025 12:00am Complies with drug therapyCoenzyme Q10 (CO Q 10 PO) (6 sources)Coenzyme Q10 (CO Q 10 PO) Take by mouth ActiveContinuous Blood Gluc Musculoskeletal Physician (Dexcom G7 Musculoskeletal Physician) device (9 sources)Start: 66-71-2017Luryayjvnl Blood Gluc Musculoskeletal Physician (Dexcom G7 Musculoskeletal Physician) device USE DIRECTED 07/16/2023 ActiveContinuous Blood Gluc Sensor (Dexcom G7 Sensor) misc (9 sources)Start: 54-06-5196Gxictfrkxp Blood Gluc Sensor (Dexcom G7 Sensor) misc USE DIRECTED, CHANGE EVERY 10 DAYS 08/18/2023 ActiveCoQ-10 (15 sources)CoQ-10 ActiveCoQ-10 100 MG (6 sources)CoQ-10 100 MG as directed Orally ONCE A DAY ActiveDexcom G6 Musculoskeletal Physician - (20 sources)Start: 09-26-8569Tdxngu G6 Musculoskeletal Physician - use as directed to monitor dexcom sensor Feb, ActiveStart: 20-06-4354Ixbzeb G6 Sensor - (20 sources)Start: 48-95-0012Dhmjjb G6 Sensor - as directed change q 10 days for 90 days Feb, ActiveStart: 19-14-4887Ernejd G6 Sensor - as directed change q 10 days Feb, ActiveStart: 83-36-2569Allcss G6 Transmitter - (20 sources)Start: 99-55-7077Tbhkvb G6 Transmitter - as directed change Q 3 months Feb, ActiveStart: 24-58-8921Wtuuaw G7 Musculoskeletal Physician - (20 sources)Start: 42-77-1072Cnqrfs G7 Musculoskeletal Physician - as directed as directed as directed Jun, ActiveDexcom G7 Sensor - (20 sources)Start: 52-87-0407Hprnuw G7 Sensor - as directed as directed change every 10 days for 90 days Jun, ActiveStart: 12-19-6089Zbgfmh G7 Sensor - as directed as directed change every 10 days for 30 days Jun, Active diclofenac sodium 20 mg/ml topical solution (20 sources)Nonsteroidal Anti-inflammatory DrugStart: 31-15-5466Vwthrcow 2 % 2 pumps to affected area Transdermal Twice a day Aug, ActiveStart: 15-75-5876iirvyzviryydap 1.25 mg oral capsule (20 sources)Provitamin D2 CompoundStart: 49-93-8386ilzl 1 capsule by mouth once dailyergocalciferol (Vitamin D-2) 1.25 MG (15587 UT) capsule Take 1 capsule (50,000 Units) by mouth oncedaily. 08/29/2021 ActiveStart: 64-60-5787lzzt 1 tablet by mouth two times weeklyVitamin D (Ergocalciferol) 1.25 MG (34350 UT) Oral Capsule Take 1 tablet twice weekly Quantity: 0 Refills: 0 Ordered: 14-Jan-2022 DO Start : 29-Aug-2021 ActiveStart: 06-15-2020 End: 11-14-1675oqas 1 capsule by mouth every weekErgocalciferol (Vitamin D2) 1,250 mcg (50,000 unit) Capsule Discontinued 1250 MCG PO every week June 15, 2020 12:00am March 01, 2024 9:34am thursdaytake 1 capsule by mouth every week Ergocalciferol 32847 UNIT 1 capsule Orally Q week Activetake 1 capsule by mouth every weekErgocalciferol 14835 UNIT 1 capsule Orally Q week ActiveEster-C - (20 sources)Brooke-C - as directed Orally Activefluticasone propionate 0.05 mg/actuat metered dose nasal spray (10 sources)CorticosteroidStart: 86-84-3351ezik 1 spray(s) nasal route twice dailyFluticasone Propionate 50 MCG/ACT 1 spray in each nostril Nasally Twice a day for 14 days Sep, ActiveStart: 04-05-1261jvbb 1 spray(s) nasal route twice dailyFluticasone Propionate 50 MCG/ACT 1 spray in each nostril Nasally Twice a day for 14 days Sep, Active3 ml insulin degludec 200 unt/ml pen injector (18 sources)Insulin AnalogStart: 78-78-5452gbdtxcz degludec (Tresiba FlexTouch) 200 UNIT/ML injection Indications: Type 2 diabetes mellitus with peripheral neuropathy (HCC) Inject 30 Units under the skin Daily 9 mL 3 07/27/2025 Active Start: 72-05-9821vowogyp degludec (Tresiba FlexTouch) 200 UNIT/ML injection Indications: Type 2 diabetes mellitus with peripheral neuropathy (HCC) Inject 30 Units under the skin Daily 9 mL 3 07/27/2025 ActiveStart: 02-16-2025 End: 04-36-4311Gqihxbs Degludec 200 unit/mL (3 mL) insulin pen Discontinued UNIT SUBCUT February 16, 2025 12:00am March 06, 2025 8:16amStart: 02-14-2025 End: 33-45-7983hkozvdk degludec (Tresiba FlexTouch) 200 UNIT/ML injection Indications: Type 2 diabetes mellitus with peripheral neuropathy (HCC) Inject 60 Units under the skin Daily 9 mL 3 02/14/2025 07/27/2025 Discontinued (Dose adjustment)Insulin Degludec 200 unit/mL (3 mL) insulin pen (5 sources)Start: 82-79-1242Xlfqwuo Degludec 200 unit/mL (3 mL) insulin pen Active 60 UNIT SUBCUT Daily March 06, 2025 8:13amStart: 02-16-2025 End: 59-54-6133Lfkfpjp Degludec 200 unit/mL (3 mL) insulin pen Discontinued UNIT SUBCUT February 16, 2025 12:00am March 06, 2025 8:16amStart: 61-92-8341Hhbbqpx Degludec 200 unit/mL (3 mL) insulin pen Active UNIT SUBCUT February 16, 2025 12:00am3 ml insulin lispro 100 unt/ml pen injector (20 sources)Insulin AnalogStart: 74-81-6319YpsqNSR KWIKPEN 100 UNIT/ML injection Indications: Type 2 diabetes mellitus with peripheral neuropathy (HCC) 10 units breakfast, 14 units dinner plus correction 1:30 > 150 mg/dl (max daily 50 units ) 15 mL 3 08/15/2025 ActiveStart: 02-16-2025 End: 69-84-8177ghuwzdk lispro (HumaLOG KWIKPEN) 100 UNIT/ML injection Indications: Type 2 diabetes mellitus with peripheral neuropathy (HCC) 10 units breakfast, 14 units dinner plus correction 1:30 > 150 mg/dl (max daily 50 units) 15 mL 3 05/15/2025 ActiveStart: 30-11-0372dizsenm lispro (HumaLOG) 100 UNIT/ML injection Indications: Type 2 diabetes mellitus with peripheral neuropathy (CMS/HCC) 5 units breakfast and dinner 15 mL 3 06/21/2024 ActiveStart: 01-71-9390ncbjso 100 [IU] by subcutaneous injection at bedtimeInsulin Lispro (1 Unit Dial) 100 UNIT/ML Subcutaneous Solution Pen-injector ADMINISTER 5-6 UNITS SUBCUTANEOUSLY IN THE MORNING AND at bedtime Quantity: 12 Refills: 0 Ordered: 06-Apr-2023 DO Start : 06-Apr-2023 ActiveStart: 03-25-2022 End: 64-68-4904aaljcd 100 [IU] by subcutaneous injection once daily at bedtime as neededInsulin Lispro (Humalog Kwikpen Insulin) 100 unit/mL insulin pen Discontinued 5 - 6 UNIT SUBCUT Twice daily February 23, 2024 5:04pm February 16, 2025 9:40am once a day in the morning and PRN QHSStart: 07-25-2020 End: 24-22-8874lfjbhx 5 [IU] by subcutaneous injection once daily at breakfast Insulin Lispro (Humalog Kwikpen Insulin) 100 unit/mL Insulin Pen Discontinued 5 UNIT SUBCUT Daily with breakfast July 25, 2020 12:00am February 23, 2024 5:05pmStart: 06-15-2019 End: 52-32-2445uixssl 5 [IU] by subcutaneous injection once daily [...] Insulin) 100 unit/mL insulin pen (20 sources)Start: 68-54-5056Uxtovyw Lispro (Humalog Kwikpen Insulin) 100 unit/mL insulin pen Active 8 - 12 UNIT SUBCUT Twice daily February 16, 2025 9:38am 8 units AM 12 units in the Afternoon and 12 units in the eveningStart: 02-23-2024 End: 12-14-0065ngrqmj 100 [IU] by subcutaneous injection once daily at bedtime as neededInsulin Lispro (Humalog Kwikpen Insulin) 100 unit/mL insulin pen Discontinued 5 - 6 UNIT SUBCUT Twice daily February 23, 2024 5:04pm February 16, 2025 9:40am once a day in the morning and PRN QHSStart: 08-64-2471ojixmk 100 [IU] by subcutaneous injection once daily at bedtime as neededInsulin Lispro (Humalog Kwikpen Insulin) 100 unit/mL insulin pen Active 5 - 6 UNIT SUBCUT Twice daily February 23, 2024 4:04pm once a day in the morning and PRN QHSStart: 57-34-3108vnczjt 100 [IU] by subcutaneous injection once daily at bedtime as neededInsulin Lispro (Humalog Kwikpen Insulin) 100 unit/mL insulin pen Active 5 - 6 UNIT SUBCUT Twice daily February 23, 2024 5:04pm once a day in the morning and PRN QHS3 ml insulin, regular, human 500 unt/ml pen injector (20 sources)InsulinStart: 37-02-0920sjlsxgv regular (HumuLIN R U-500 KWIKPEN) 500 UNIT/ML CONCENTRATED injection Indications: Type 2 diabetes mellitus with peripheral neuropathy (CMS/HCC) 55 units breakfast and 25 units dinner 6 mL 3 ActiveStart: 03-01-2024 End: 08-74-5328Ekynfiq Regular Hum U-500 Conc (Humulin R U-500 (Conc) Kwikpen) 500 unit/mL (3 mL) insulin pen Discontinued 55 UNIT SUBCUT Twice daily March 01, 2024 9:35am February 16, 2025 9:37amStart: 02-23-2024 End: 74-36-6961wufire 60 [IU] by subcutaneous injection in the morning, then inject 30 [IU] by subcutaneous injection in the eveningInsulin Regular Hum U-500 Conc (Humulin R U-500 (Conc) Kwikpen) 500 unit/mL (3 mL) insulin pen Disco ntinued 0 SUBCUT As Directed February 23, 2024 5:09pm March 01, 2024 9:42am 60 units in the morning and 30 units in the evening subcutaneously as directed; Start: 56-27-3674altnfta regular (HumuLIN R U-500 KWIKPEN) 500 UNIT/ML CONCENTRATED injection Indications: Type 2 diabetes mellitus with peripheral neuropathy (CMS/HCC) 55 units breakfast and 25 units dinner 3 mL 10/12/2023 ActiveStart: 17-74-2985fxwzpt 60 [IU] by subcutaneous injection in the morning, then inject 30 [IU] by subcutaneous injection in the eveningHumuLIN R U-500 KwikPen 500 UNIT/ML Subcutaneous Solution Pen-injector ADMINISTER 60 UNITS IN THE MORNING AND 30 UNITS IN THE EVENING Quantity: 12 Refills: 0 Ordered: 06-Apr-2023 DO Start : 6-Jeo-4278WxrnpkAwrrx: 02-11-2018 End: 31-28-1599Jjilvqe Regular Hum U-500 Conc (Humulin R U-500 (Conc) Insulin) 500 unit/mL solution Discontinued 80 UNIT SUBCUT Daily with breakfast February 11, 2018 11:16am February 12, 2024 12:28pm Patient varies dosage depending on dietary intakeStart: 02-11-2018 End: 43-89-8686qyncsf 40 [IU] by subcutaneous injection once dailyInsulin Regular Hum U-500 Conc (Humulin R U-500 (Conc) Insulin) 500 unit/mL solution Discontinued 40 UNIT SUBCUT Daily with supper February 11, 2018 11:16am February 12, 2024 12:29pm Pt. varies dosage according to dietary intake.Start: 01-21-2018 End: 31-61-7036zvbnjm 1 dose by subcutaneous injection four times [...] hs if glucose >225. Please contact the [employer] source for Protocol details.Start: 01-21-2018 End: 56-19-9149Rhubopd Regular Hum U-500 Conc (Humulin R U-500 (Conc) Kwikpen) 500 unit/mL (3 mL) Insulin Pen Discontinued 0 .ROUTE .COMPLEX January 21, 2018 1:00am February 11, 2018 11:17am Check glucose ac, hs.Use corrective scale ac tid. Use hs if glucose >225. Please contact the information source for Pr otocol details.Start: 01-17-2018 End: 33-92-7434Fccxqlj Regular Hum U-500 Conc (Humulin R U-500 (Conc) Insulin) 500 unit/mL solution Discontinued 90 UNIT SUBCUT Daily with breakfast 0 January 21, 2018 8:54am February 11, 2018 11:16am If eatingStart: 12-25-2017 End: 83-26-5112Woonisu Regular Hum U-500 Conc (Humulin R U-500 (Conc) Insulin) 500 unit/mL Solution Discontinued 80 UNIT SUBCUT Daily with supper 0 January 02, 2018 6:07pm January 17, 2018 1:34amStart: 12-25-2017 End: 42-01-7281Nstvffm Regular Hum U-500 Conc (Humulin R U-500 (Conc) Insulin) 500 unit/mL Solution Discontinued 100 UNIT SUBCUT Daily with breakfast 0 January 03, 2018 3:07pm January 17, 2018 1:34amStart: 12-25-2017 End: 49-89-8543bgielk 100 [IU] by subcutaneous injection once daily before breakfastInsulin Regular Human (Humulin R U-100) 100 unit/mL Solution Discontinued 100 UNITS SUBCUT Daily before breakfast December 25, 2017 1:00am December 25, 2017 3:53pmStart: 12-25-2017 End: 64-85-6648pzaazd 80 [IU] by subcutaneous injection once dailyInsulin [...] (Probiotic) 3 billion cell capsule (1 source)Start: 29-82-2846lnls 3 capsules by mouth once dailyLactobacillus Combination No.4 (Probiotic) 3 billion cell capsule Active 3000 MMU CELLS PO Daily July 12, 2025 12:00am administer with a meal Complies with drug therapylevoFLOXacin 500 mg oral tablet (3 sources)Quinolone AntimicrobialStart: 22-31-3040hjpm 1 tablet by mouth every twenty-four hourslevoFLOXacin 500 MG 1 tablet Orally Once a day for 7 days Nov, Activelinezolid 600 mg oral tablet (1 source)Oxazolidinone AntibacterialStart: 58-04-1200rsey 1 tablet by mouth twice dailyLinezolid 600 mg tablet Active 600 MG PO Twice daily July 12, 2025 12:00am Complies with drug therapymagnesium glycinate 100 mg oral tablet (20 sources)Start: 04-16-7547Kzauvfuse Glycinate 100 mg Tablet Active 600 MG PO Daily at bedtime June 17, 2019 12:00am Complies with drug therapyStart: 99-27-9185lmmi 600 mg by mouth once daily at bedtimeMagnesium Glycinate Active 600 MG PO Daily at bedtime June 17, 2019 12:00amStart: 01-19-2018 End: 90-96-3115Iskaxjzfd Glycinate 100 mg Tablet Discontinued 600 MG PO Daily at bedtime January 19, 2018 1:00am February 11, 2018 11:15amStart: 01-19-2018 End: 95-35-8440adnr 600 mg by mouth once daily at bedtimeMagnesium Glycinate Discontinued 600 MG PO Daily at bedtime January 19, 2018 1:00am February 11 11:15amMagnesium Glycinate Plus 600 mg (20 sources)Magnesium Glycinate Plus 600 mg 1 tablet QHS Activenitroglycerin 0.4 mg sublingual tablet (20 sources)Nitrate VasodilatorStart: 62-92-1922Ovkwvkicbgjgy 0.4 mg tablet, sublingual Active 0.4 MG BUCCAL As Directed as needed for Chest Pain March 25, 2022 12:00am Complies with drug therapyStart: 73-51-5470dsbqpnlwiuanl (Nitrostat) 0.4 mg SL tablet Indications: Chest pain, unspecified DISSOLVE 1 TABLET UNDER THE TONGUE EVERY 5 MINUTES NEEDED FOR CHEST PAIN. DO NOT EXCEED A TOTAL OF 3 DOSES IN 15 MINUTES. GO TO THE ER IF PERSISITS. 90 tablet 1 12/24/2023 ActiveStart: 08-88-0443Zbtzdqhbhpabv Active 0.4 MG BUCCAL As Directed March 24, 2022 11:00pmomega-3 acid ethyl esters (alf) 1000 mg oral capsule (20 sources)Start: 97-73-2964njfl 1 capsule by mouth in the morningomega-3 acid ethyl esters (Lovaza) 1 g capsule Take 2 g by mouth in the morning and 2 g before bedtime. 03/04/2023 ActiveStart: 06-15-2019 End: 93-55-5936Fumdx-3 Acid Ethyl Esters (Lovaza) 1 gram capsule Discontinued 2 CAP PO Twice daily 360 90 September 23, 2024 11:59am April 11, 2025 4:11pmStart: 12-25-2017 End: 84-02-8428Dyfqq-3 Acid Ethyl Esters (Lovaza) 1 gram Capsule Discontinued 2 CAP PO Twice daily December 25, 2017 1:00am January 03, 2018 3:03pmomega-3 acid ethyl esters (Lovaza) 1 gram capsule Take 1 capsule (1 g) by mouth twice a day. ActivePen Needle, Diabetic (2 sources)Start: 11-29-5087Rng Needle, Diabetic Active 0 .Route September 12, 2024 1:53pm As directedStart: 09-12-2024 End: 51-69-1864Qgq Needle, Diabetic Discontinued 0 .Route September 12, 2024 12:00am September 12, 2024 1:53pmAs directedpolyethylene glycol 3350 622657 mg / potassium chloride 2970 mg / sodium bicarbonate 6740 mg / sodium chloride 5860 mg / sodium sulfate 79295 mg powder for oral solution (2 sources)Osmotic LaxativeStart: 36-10-0013Ffmmbgar 236 GM At 4:00 pm the day prior to colonoscopy Orally 8 ounces every 15 minutes for 1 daysPLEASE CHECK ALLERGIES Jul, Activepregabalin 150 mg oral capsule (20 sources)Start: 01-09-2025 End: 64-33-8758bugj 1 capsule by mouth twice dailyPregabalin (Lyrica) 150 mg capsule Active 150 MG PO Twice daily 180 90 January 09, 2025 11:34am Complies with drug therapyStart: 85-63-0258xedg 1 capsule by mouth once in the morning Pregabalin 75 MG 1 capsule Orally Q AM Dec, ActiveStart: 08-02-2021 Start: 34-83-4968bmex 1 capsule by mouth once in the morningPregabalin 75 MG 1 capsule Orally Q AM Jul, ActiveStart: 04-01-2021 End: 41-17-5361nclj 1 capsule by mouth once dailyPregabalin (Lyrica) 150 mg capsule Discontinued 150 MG PO Daily 90 February 12, 2024 12:34pm February 12, 2024 5:43pmStart: 04-01-2021 End: 72-50-1198qrhj 2 capsules by mouth once daily in the morningPregabalin 75 mg capsule Discontinued 150 MG PO Every morning April 01, 2021 12:00am February 12, 2024 12:25pmStart: 06-15-2019 End: 92-78-9740cuff 1 capsule by mouth once daily at bedtimePregabalin (Lyrica) 300 mg capsule Discontinued 300 MG PO Daily at bedtime 90 February 12, 2024 12 :35pm February 12, 2024 5:46pmStart: 01-21-2018 End: 86-44-8344bzve 1 capsule by mouth twice dailyPregabalin (Lyrica) 75 mg Capsule Discontinued 75 MG PO Twice daily January 21, 2018 1:00am February 11, 2018 11:16amStart: 12-25-2017 End: 92-02-3351ppdy 1 capsule by mouth twice dailyPregabalin (Lyrica) 300 mg Capsule Discontinued 300 MG PO Twice daily December 25, 2017 1:00am January 03, 2018 3:03pm End: 59-71-8886jiwd 1 capsule by mouth once daily in the morningPREGABALIN ORAL Take 1 capsule by mouth once daily in the morning. 0 02/22/2024 Discontinued (Other)Lyrica CAPS TAKING 150MG IN AM, 300MG IN PM Quantity: 0 Refills: 0 Ordered: 20-Feb-2022 DO ActiveSuper B Complex (20 sources)Super B Complex Activeubidecarenone 300 mg oral capsule (20 sources)Start: 51-03-9502fwhv 10 capsules by mouth once dailyCoenzyme Q10 300 mg capsule Active 300 MG PO Daily March 01, 2024 12:00am Complies with drug therapyStart: 30-60-9393hfve 1 capsule by mouth twice dailyCo-Enzyme Q10 100 MG Oral Capsule TAKE 1 CAPSULE TWICE DAILY. Quantity: 180 Refills: 3 Ordered: Rosalinda Torres MD Start : 08-May-2022 ActiveCoQ-10 100 MG as directed Orally ONCE A DAY Activeubiquinol (2 sources)COQ10, UBIQUINOL, ORAL Take by mouth. PicmldWLM43, UBIQUINOL, ORAL Take by mouth. 0 ActiveVitamin B Complex (20 sources)Start: 77-76-0191exrd 1 tablet by mouth once daily in the morning Vitamin B Complex Active 1 TAB PO Every morning June 15, 2019 12:00amStart: 96-23-7131xznk 1 tablet by mouth once daily in the morningVitamin B Complex Active 1 TAB PO Every morning June 14, 2019 11:00pmVitamin B Complex Tablet (18 sources)Start: 66-64-0700mydd 1 tablet by mouth once daily in the morning Start: 21-38-0751emnb 1 tablet by mouth once daily in the morningVitamin B Complex Tablet Active 1 TAB PO Every morning June 15, 2019 12:00am Complies with drug therapyStart: 02-29-0812ofrg 1 tablet by mouth once daily in the morningVitamin B Complex Tablet Active 1 TAB PO Every morning June 15, 2019 12:00amStart: 33-15-2465dgnj 1 tablet by mouth once daily in the morningVitamin B Complex Tablet Active 1 TAB PO Every morning June 14, 2019 11:00pm Completed/Discontinued Medications MedicationDrug Class(es)DatesSig (Normalized)Sig (Original)Accu-Chek Vicenta as manufactured (20 sources)Start: 13-73-8555Deez-Chek Vicenta as manufactured four times daily 250.92/V58.67 qid Nov, Not-TakingStart: 03-61-7662Kpwh-Chek Vicenta as manufactured four times daily 250.92/V58.67 qid Nov, ActiveStart: 25-13-1435Hzvu-Chek SmartView as manufactured (20 sources)Start: 08-67-4048Kcqu-Chek SmartView as manufactured QID e11.9 QID Nov, Not-TakingStart: 37-71-7386Fbgx-Chek SmartView as manufactured QID e11.9 QID Nov, ActiveStart: 68-96-0483swniepemgszyo 325 mg / HYDROcodone bitartrate 5 mg oral tablet (20 sources)Opioid AgonistStart: 06-19-2020 End: 42-68-8657okao 1 tablet by mouth twice daily as needed for painHydrocodone- Acetaminophen ([place]ton) 5-325 mg tablet Discontinued 1 TAB PO Twice daily as needed for Pain June 19, 2020 12:00am July 27, 2020 8:14amStart: 01-17-2018 End: 36-88-9995nvog 1-2 tablets by mouth every six hours as needed for pain Hydrocodone-Acetaminophen ([place]ton) 5-325 mg tablet Discontinued 2 TAB PO Q6H as needed for pain 45 February 17, 2018 June 15, 2019 1:47pm 1-2 tabs every 6 hours as needed for painacetaminophen 325 mg / oxyCODONE hydrochloride 5 mg oral tablet (20 sources)Opioid AgonistStart: 01-03-2018 End: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 FO]Onset: 55-88-7291EqbvfbmXhgra non-traumatic joint disorders (2 sources)Charcot's joint, right ankle and foot; Translations: [CHARCOTS JOINT RIGHT ANKLE AND F]Onset: 16-19-0856WmvduksOcwbt non-traumatic joint disorders (20 sources)Pain in left knee; Translations: [Pain in left knee]EpisodicOther non-traumatic joint disorders (20 sources)Pain in right knee; Translations: [Pain in right knee]EpisodicOther non-traumatic joint disorders (20 sources)Arthralgia of the ankle and/or foot; Translations: [Pain in left ankle and joints of left foot]35-64-4474ClnrszbcXlifv non-traumatic joint disorders (18 sources)Pain in right shoulder; Translations: [Right shoulder pain]Onset: 879791-78-6737PezzgynkEyztb non-traumatic joint disorders (13 sources)Joint pain; Translations: [Pain in unspecified joint]01-09-2025 EpisodicOther nutritional; endocrine; and metabolic disorders (20 sources)Obesity; Translations: [Obesity, unspecified]Onset: 02-22-2024 58-82-6267UluogfnHtizt nutritional; endocrine; and metabolic disorders (20 sources)Hypercalcemia; Translations: [Hypercalcemia]ChronicOther nutritional; endocrine; and metabolic disorders (20 sources)Hypomagnesemia; Translations: [Hypomagnesemia]29-82-9553OpihjfgGfaim nutritional; endocrine; and metabolic disorders (6 sources)Hypomagnesemia; Translations: [Disorders of magnesium metabolism] ChronicOther nutritional; endocrine; and metabolic disorders (2 sources)Obesity, unspecified; Translations: [Obesity, unspecified]Onset: 07-50-7817InhcidlVsswa nutritional; endocrine; and metabolic disorders (2 sources)Body mass index (BMI) 37.0-37.9, adult; Translations: [Body mass index (BMI) 37.0-37.9, adult]Onset: 18-87-7901PhjedewZtpnn nutritional; endocrine; and metabolic disorders (15 sources)Severe obesity; Translations: [Class 2 severe obesity due to excess calories with serious comorbidity and body mass index (BMI) of 39.0 to 39.9 in adult ([facility])]Onset: 024824-96-1102QwbafudEkuko nutritional; endocrine; and metabolic disorders (12 sources)Hyperuricemia without signs of inflammatory arthritis and tophaceous disease; Translations: [Other abnormal blood chemistry]Onset: 12-03-2021 Resolved: 96-31-5234ZykichvqLdaew nutritional; endocrine; and metabolic disorders (20 sources)Hyperuricemia; Translations: [Hyperuricemia without signs of inflammatory arthritis and tophaceous disease]44-80-9033YnhyvphtIlinp nutritional; endocrine; and metabolic disorders (20 sources)H/O: metabolic disorder; Translations: [Personal history of other endocrine, nutritional and metabolic disease]52-98-4071QwcbqzzmEllbe screening for suspected conditions (not mental disorders or infectious disease) (20 sources)Cardiovascular finding; Translations: [Abnormal findings on diagnostic imaging of other specified body structures]20-37-4057ScoodoqCqboe screening for suspected conditions (not mental disorders or infectious disease) (14 sources)Electrocardiogram abnormal; Translations: [Nonspecific abnormal electrocardiogram [ECG] [EKG]]Onset: 44-24-9905NvjquadeFchml upper respiratory infections (1 source)Acute pansinusitis, unspecifiedEpisodicPancreatic disorders (not diabetes) (20 sources)Pancreatitis; Translations: [Acute pancreatitis without necrosis or infection, unspecified]74-22-7892MftvpygsQgzpqqcn codes; unclassified (20 sources)Obstructive sleep apnea syndrome; Translations: [Obstructive sleep apnea (adult)(pediatric)]Onset: 311066-07-5159MqjxkirVkporzhc codes; unclassified (8 sources)Obstructive sleep apnea (adult) (pediatric); Translations: [Obstructive sleep apnea (adult)(pediatric)]Onset: 02-07-2022 Resolved: 06-99-3818TawxpegFislankl codes; unclassified (20 sources)Sleep apnea; Translations: [Sleep apnea, unspecified]ChronicResidual codes; unclassified (2 sources)Sleep apnea, unspecified; Translations: [SLEEP APNEA UNSPECIFIED] Onset: 33-17-4530JsmuhtxHgwpympm codes; unclassified (20 sources)Insomnia; Translations: [Insomnia, unspecified]26-60-3098Fihxbqoz Residual codes; unclassified (2 sources)Other specified postprocedural statesOnset: 04-14-2022 Resolved: 37-72-9139WjrxeuwlEcgqlxzo codes; unclassified (3 sources)Insomnia, unspecifiedOnset: 04-30-2022 Resolved: 26-04-9012FwcfbuvtWmplosqg codes; unclassified (14 sources)Family history of dementia; Translations: [Family history of other mental and behavioral disorders]80-77-7890EdbbuttqSlkiafid codes; unclassified (9 sources)Family history of other mental and behavioral disorders; Translations: [Family history of other neurological diseases]52-12-7877Fpfrnqyt Septicemia (except in labor) (20 sources)Septic shock; Translations: [Sepsis, unspecified organism]02-17-2018 EpisodicSpondylosis; intervertebral disc disorders; other back problems (20 sources)Cervical spondylosis without myelopathy; Translations: [Spondylosis without myelopathy or radiculopathy, cervical region]Onset: 10-01-2021 Resolved: 15-34-0430RhhnfsgOfvquxngviy; intervertebral disc disorders; other back problems (20 sources)Neck pain; Translations: [Cervicalgia]Onset: 10-01-2021 Resolved: 65-13-0827GsttzqriLbxnuhz and strains (15 sources)Traumatic rupture of biceps tendon; Translations: [Strain of muscle, fascia and tendon of long headof biceps, unspecified arm, initial encounter] 93-18-9528CyhiipeyWfvnfjpekqbi (1 source)CONTACT W/AND (SUSP) EXPOS COVID-19; Translations: [CONTACT W/AND (SUSP) EXPOS COVID-19]Onset: 99-39-7893Ojbtufgyxaoi (1 source)Cough, unspecified; Translations: [Cough, unspecified]Onset: 12-08-2024 Past or Other Problems Problem ClassificationProblemDateDocumented DateEpisodic/ChronicAcquired foot deformities (3 sources)Varus deformity, not elsewhere classified, left ankle; Translations: [Valgus deformity, not elsewhere classified, left ankle]Onset: 01-06-2023 EpisodicCardiac dysrhythmias (6 sources)Ventricular premature beats; Translations: [Other premature beats] Resolved: 12-70-5070NkcjvtnKzgtsva kidney disease (20 sources)Chronic kidney disease; Translations: [Chronic kidney disease, stage III (moderate)]Onset: 02-20-2022 Resolved: 14-89-8052Uivvr acquired deformities (20 sources)Lumbar spondylolisthesis; Translations: [Spondylolisthesis, lumbar region]Onset: 357024-56-8743GvdzaknuQilry aftercare (20 sources)Long-term current use of insulin; Translations: [terminologist (current) use of insulin]Onset: 189804-00-1905IinrybzlMxbgb aftercare (1 source)Other detention (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 therapy; Translations: [OT SOCIAL WORK NURSE CURRENT DRUG THERAPY]Onset: 95-17-6186CczncvejAaxbe aftercare (1 source)halfway (current) use of insulin; Translations: [SOCIAL WORK NURSE CURRENT USE OF INSULIN]Onset: 80-20-4385LtmqjfmqZowut aftercare (1 source)terminologist (current) use of aspirin; Translations: [LONGTERM CURRENT USE OF ASPIRIN]Onset: 36-23-4112HiwbccfgVtgmp aftercare (1 source)halfway (current) use of anticoagulants; Translations: [SOCIAL WORK NURSE CURRNT USE ANTICOAGULANTS]Onset: 09-09-4288WfbnwjudWmbbn bone disease and musculoskeletal deformities (1 source)Other specified disorders of bone density and structure, left ankle and foot; Translations: [OT D/O BONE DEN STRUCT LT ANK FOOT]Onset: 01-06-2023 EpisodicOther connective tissue disease (4 sources)Pain in left foot; Translations: [PAIN IN LEFT FOOT]Onset: 11-16-2022 EpisodicOther connective tissue disease (1 source)Pain in right foot; Translations: [PAIN IN RIGHT FOOT]Onset: 10-68-6474LxwxpueiBhqlh connective tissue disease (20 sources)Unspecified rotator cuff tear or rupture of right shoulder, not specified as traumatic; Translations: [Disorders of bursae and tendons in shoulder region, unspecified]Onset: 607080-06-6088QqyjuugaRcegw lower respiratory disease (6 sources)Dyspnea on exertion; Translations: [Other respiratory abnormalities] Resolved: 32-73-7830QjychklzBgvft lower respiratory disease (2 sources)Shortness of breathOnset: 02-07-2022 Resolved: 80-03-7794IzsxtebhQbskd non-traumatic joint disorders (4 sources)Pain in right ankle and joints of right foot; Translations: [PAIN IN RIGHT ANKLE]Onset: 77-89-3219KvdyfeurWonkt non-traumatic joint disorders (1 source)Pain in left ankle and joints of left foot; Translations: [PAIN IN LEFT ANKLE]Onset: 26-07-9174SkqvpnrvTpfxvkyn codes; unclassified (6 sources)History of palpitations; Translations: [Personal history of other diseases of circulatory system] Resolved: 00-18-4082OapykahiXnhsgyto codes; unclassified (1 source)Acquired absence of other specified parts of digestive tract; Translations: [ACQ ABSENCE OTH PART DIGESTV TRACT]Onset: 08-63-0202Mdfhvhrh Substance-related disorders (1 source)Opioid use, unspecified, uncomplicatedOnset: 10-01-2021 Resolved: 83-81-3725IoviyakmZeccaoztmwqn (6 sources)Never smoked tobacco; Translations: [Never a smoker]Unclassified (1 source)Cough R05.9Onset: 12-03-2021 Resolved: 10-91-7093Czidlbynipkl (1 source)Low back pain, unspecified M54.50Unclassified (2 sources)Onset: 765958-98-6815 Results Test NameValueInterpretationReference RangeFacilityBasophils Auto (Bld) [#/Vol] Ordered By: Karla Lyons on 11-72-0271Kpwjkpfnj (Bld) [#/Vol]0.0 10 3/uL0.0-0.1 [facility] HospitalBasophils/100 WBC Auto (Bld)Ordered By: Karla Lyons on 74-22-5517Pdfxepxwj/100 WBC (Bld)0.1 %Low0.2-2.0German HospitalEosinophils/100 WBC Auto (Bld)Ordered By: Karla Lyons on 12-03-7977Ivvwxtubjwe/100 WBC (Bld)0.0 %Low0.9-7.0German HospitalErythrocyte distribution width Auto (RBC) [Ratio]Ordered By: Karla Lyons on 45-17-7677Vegeauvrfsn distribution width (RBC) [Ratio]12.2 %11.0-15.0 [facility] HospitalGlobulin Calc (S) [Mass/Vol]Ordered By: Karla Lyons on 05-05-9420Ewhldpch (S) [Mass/Vol]4.1 g/dLGerman HospitalGlomerular filtration rate (GFR) estimation in non- AmericanOrdered By: Karla Lyons on 43-24-8407TUN/1.73 sq M.predicted among non-blacks MDRD (S/P/Bld) [Vol rate/Area]34 mL/min/{1.73_m2}Low>=60 mL/min/1.73m 2FThe Surgical Hospital at SouthwoodsHematocrit Auto (Bld) [Volume fraction]Ordered By: Karla Lyons on 49-18-6963Yrtuqsbxax (Bld) [Volume fraction]30.3 %Low36.0-48.0 [facility] HospitalHemoglobin [Mass/volume] in BloodOrdered By: Karla Lyons on 03-52-1529Tsocwexofd (Bld) [Mass/Vol]10.1 g/dLLow12.0-16.0 [facility] HospitalLaboratory - Chemistry and Chemistry - challengeOrdered By: Karla Lyons on 28-94-6209Svthhrf [Mass/Vol]1.9 g/dLLow 3.4-5.0German HospitalALP [Catalytic activity/Vol]99 U/L46-116 [facility] HospitalALT [Catalytic activity/Vol]23 U/L14-59 [facility] HospitalAST [Catalytic activity/Vol]14 U/LDtv27-19 [facility] HospitalBilirubin [Mass/Vol]0.3 mg/dL0.2-1.0German HospitalCalcium [Mass/Vol]8.6 mg/dL8.5-10.1FThe Surgical Hospital at SouthwoodsChloride [Moles/Vol]106 mmol/D53-223XobhohgvtGerman HospitalCO2 [Moles/Vol]23.0 mmol/L21.0-32.0[facility] Creatinine [Mass/Vol]1.54 mg/dLHigh0.55-1.02[facility] GFR/1.73 sq M.predicted MDRD (S/P/Bld) [Vol rate/Area]41 mL/min/{1.73_m2}Low>=60 mL/min/1.73m 2FThe Surgical Hospital at SouthwoodsGlucose [Mass/Vol]253 mg/dLHigh 74-106German HospitalMagnesium [Mass/Vol]1.7 mg/dLLow1.8-2.4 [facility] HospitalPotassium [Moles/Vol]5.0 mmol/L3.5-5.1FThe Surgical Hospital at SouthwoodsProtein [Mass/Vol]6.0 g/dLLow6.4-8.2FTwin City Hospitalodium [Moles/Vol]138 mmol/X908-188BzgrahoycGerman HospitalUrea nitrogen [Mass/Vol]56.0 mg/dLHigh7.0-18.0German HospitalUrea nitrogen/Creatinine [Mass ratio]36.4 mg/mgGerman HospitalLaboratory - Hematology and Cell countsOrdered By: Karla Lyons on 98-34-6601KNY (Bld) [Velocity]106 mm/hHigh<=30[facility] Immature granulocytes/100 WBC (Bld)0.8 %High0.0-0.5FThe Surgical Hospital at SouthwoodsLeukocytes [#/volume] corrected for nucleated erythrocytes in Blood by Automated counOrdered By: Karla Lyons on 01-07-2265MMS corrected for nucl RBC Auto (Bld) [#/Vol]11.8 10 3/uLHigh4.0-11.0[facility] Lymphocytes Auto (Bld) [#/Vol]Ordered By: Karla Lyons on 77-37-9376Oymenyfkkxm (Bld) [#/Vol]0.8 10 3/uLLow1.2-3.8[facility] Lymphocytes/100 WBC Auto (Bld)Ordered By: Karla Lyons on 06-30-2025 Lymphocytes/100 WBC (Bld)7.0 %Low20.5-60.0German HospitalMCH Auto (RBC) [Entitic mass]Ordered By: Karla Lyons on 24-03-7373GHN (RBC) [Entitic mass]29.3 pg26.7-34.0German HospitalMCHC Auto (RBC) [Mass/Vol]Ordered By: Karla Lyons on 38-62-9066LKOU (RBC) [Mass/Vol]33.3 g/dL 29.9-35.2FThe Surgical Hospital at SouthwoodsMCV Auto (RBC) [Entitic vol]Ordered By: Karla Lyons on 87-87-4548YZC (RBC) [Entitic vol]87.8 fL81.0-99.0German HospitalMonocytes Auto (Bld) [#/Vol]Ordered By: Karla Lyons on 88-88-4314Teymxdpgj (Bld) [#/Vol]0.5 10 3/uL0.3-0.8German HospitalMonocytes/100 WBC Auto (Bld)Ordered By: Karla Lyons on 06-30-2025 Monocytes/100 WBC (Bld)3.9 %1.7-12.0German HospitalNeutrophils Auto (Bld) [#/Vol]Ordered By: Karla Lyons on 99-97-5398Hrpghavuewb (Bld) [#/Vol]10.4 10 3/uLHigh1.4-6.5FThe Surgical Hospital at SouthwoodsNeutrophils/100 WBC Auto (Bld)Ordered By: Karla Lyons on 57-47-7064Ctmyzzcjcho/100 WBC (Bld) 88.2 %High43.0-75.0German HospitalNo Panel InformationOrdered By: Gustavo Cuevas on 52-16-1736Zqxnbhpb Identification OnlyGerman HospitalNo Panel InformationOrdered By: Karla Lyons on 09-90-2146X- Reactive Protein, Qxumfdhmdvho47.95 mg/dLHigh<=0.50German HospitalEosinophils # (Auto)0.0 10 3/uL0.0-0.7FThe Surgical Hospital at Southwoods Immature Granulocyte # (Auto)0.09 10 3/uLHigh0.00-0.03German HospitalPlatelet mean volume Auto (Bld) [Entitic vol]Ordered By: Karla Lyons on 45-07-4441Ksvjsvpu mean volume (Bld) [Entitic vol]11.5 fL9.5-13.5FThe Surgical Hospital at SouthwoodsPlatelets Auto (Bld) [#/Vol]Ordered By: Karla Lyons on 50-36-0252Opsvdyezd (Bld) [#/Vol]184 10 3/pC384-629OiuezedupGerman HospitalRBC Auto (Bld) [#/Vol]Ordered By: Karla Lyons on 68-64-3193VMY (Bld) [#/Vol]3.45 10 6/uLLow4.20-5.40[facility] Medical Centererum or plasma albumin/globulin mass ratioOrdered By: Karla Lyons on 06-30-2025 Albumin/Globulin [Mass ratio]0.5 {ratio}[facility] Centererum or plasma anion gap determinationOrdered By: Karla Lyons on 74-96-2629Mbigm gap [Moles/Vol]14.0 mmol/LFThe Surgical Hospital at SouthwoodsBasophils Auto (Bld) [#/Vol]Ordered By: Karla Lyons on 78-06-1113Xqgpmsjwg (Bld) [#/Vol]0.0 10 3/uL 0.0-0.1FThe Surgical Hospital at SouthwoodsBasophils/100 WBC Auto (Bld)Ordered By: Karla Lyons on 58-99-4221Sfvlulayl/100 WBC (Bld)0.1 %Low0.2-2.0German HospitalEosinophils/100 WBC Auto (Bld)Ordered By: Karla Lyons on 83-04-7694Uxoijbkxkfl/100 WBC (Bld)0.1 %Low0.9-7.0German HospitalErythrocyte distribution width Auto (RBC) [Ratio]Ordered By: Karla Lyons on 38-85-0676Ttcmlwbiora distribution width (RBC) [Ratio]12.3 %11.0-15.0 [facility] HospitalGlobulin Calc (S) [Mass/Vol]Ordered By: Karla Lyons on 23-98-9412Wbtqhlus (S) [Mass/Vol]4.3 g/dLGerman HospitalGlomerular filtration rate (GFR) estimation in non- AmericanOrdered By: Karla Lyons on 55-34-3398BBK/1.73 sq M.predicted among non-blacks MDRD (S/P/Bld) [Vol rate/Area]31 mL/min/{1.73_m2}Low>=60 mL/min/1.73m 2FThe Surgical Hospital at SouthwoodsHematocrit Auto (Bld) [Volume fraction]Ordered By: Karla Lyosn on 28-41-5636Neeoxivvcj (Bld) [Volume fraction]31.1 %Low36.0-48.0 [facility] HospitalHemoglobin [Mass/volume] in BloodOrdered By: Karla Lyons on 54-57-8391Qiiusocfpi (Bld) [Mass/Vol]10.6 g/dLLow12.0-16.0 [facility] HospitalLaboratory - Chemistry and Chemistry - challengeOrdered By: Karla Lyons on 65-42-5890Okjopgp [Mass/Vol]2.1 g/dLLow 3.4-5.0[facility] HospitalALP [Catalytic activity/Vol]88 U/L46-116 [facility] HospitalALT [Catalytic activity/Vol]17 U/L14-59 [facility] HospitalAST [Catalytic activity/Vol]14 U/XRmd37-13 [facility] HospitalBilirubin [Mass/Vol]0.5 mg/dL0.2-1.0[facility] HospitalCalcium [Mass/Vol]8.9 mg/dL8.5-10.1FThe Surgical Hospital at SouthwoodsChloride [Moles/Vol]104 mmol/K97-511SnqaccofkGerman HospitalCO2 [Moles/Vol]21.2 mmol/L21.0-32.0[facility] Creatinine [Mass/Vol]1.68 mg/dLHigh0.55-1.02[facility] GFR/1.73 sq M.predicted MDRD (S/P/Bld) [Vol rate/Area]37 mL/min/{1.73_m2}Low>=60 mL/min/1.73m 2FThe Surgical Hospital at SouthwoodsGlucose [Mass/Vol]201 mg/dLHigh 74-106German HospitalPotassium [Moles/Vol]5.1 mmol/L3.5-5.1 [facility] HospitalProtein [Mass/Vol]6.4 g/dL6.4-8.2FTwin City Hospitalodium [Moles/Vol]137 mmol/Y981-028VjbjsdwfpGerman HospitalUrea nitrogen [Mass/Vol]62.0 mg/dLHigh7.0-18.0[facility] HospitalUrea nitrogen/Creatinine [Mass ratio]36.9 mg/mgGerman HospitalLaboratory - Chemistry and Chemistry - challengeOrdered By: Elpidio Whipple on 39-03-7275Dceipaqvu [Mass/Vol]1.9 mg/dL1.8-2.4FThe Surgical Hospital at SouthwoodsLaboratory - Hematology and Cell countsOrdered By: Karla Lyons on 47-40-2724Nhdrmclv granulocytes/100 WBC (Bld)0.3 %0.0-0.5FThe Surgical Hospital at SouthwoodsLeukocytes [#/volume] corrected for nucleated erythrocytes in Blood by Automated counOrdered By: Karla Lyons on 10-37-3023LSC corrected for nucl RBC Auto (Bld) [#/Vol]14.5 10 3/uLHigh4.0-11.0German HospitalLymphocytes Auto (Bld) [#/Vol]Ordered By: Karla Lyons on 06-29-2025 Lymphocytes (Bld) [#/Vol]0.7 10 3/uLLow1.2-3.8[facility] Lymphocytes/100 WBC Auto (Bld)Ordered By: Karla Lyons on 06-29-2025 Lymphocytes/100 WBC (Bld)4.9 %Low20.5-60.0[facility] Auto (RBC) [Entitic mass]Ordered By: Karla Lyons on 45-45-7165LKC (RBC) [Entitic mass]30.1 pg26.7-34.0German HospitalMCHC Auto (RBC) [Mass/Vol]Ordered By: Karla Lyons on 03-63-3907FVEZ (RBC) [Mass/Vol]34.1 g/dL 29.9-35.2FThe Surgical Hospital at SouthwoodsMCV Auto (RBC) [Entitic vol]Ordered By: Karla Lyons on 94-62-7316GVM (RBC) [Entitic vol]88.4 fL81.0-99.0German HospitalMonocytes Auto (Bld) [#/Vol]Ordered By: Karla Lyons on 98-66-5391Jiixzulal (Bld) [#/Vol]0.7 10 3/uL0.3-0.8German HospitalMonocytes/100 WBC Auto (Bld)Ordered By: Karla Lyons on 06-29-2025 Monocytes/100 WBC (Bld)4.8 %1.7-12.0German HospitalNeutrophils Auto (Bld) [#/Vol]Ordered By: Karla Lyons on 94-08-2355Iuevzfrxtfl (Bld) [#/Vol]13.0 10 3/uLHigh1.4-6.5FThe Surgical Hospital at SouthwoodsNeutrophils/100 WBC Auto (Bld)Ordered By: Karla Lyons on 52-13-9824Cpbmbeoqzet/100 WBC (Bld) 89.8 %High43.0-75.0[facility] HospitalNo Panel InformationOrdered By: Karla Lyons on 00-03-4305Kkryiykvpuo # (Auto)0.0 10 3/uL0.0-0.7FThe Surgical Hospital at SouthwoodsImmature Granulocyte # (Auto)0.05 10 3/uLHigh0.00-0.03 [facility] HospitalPlatelet mean volume Auto (Bld) [Entitic vol] Ordered By: Karla Lyons on 54-14-6914Makmpzkn mean volume (Bld) [Entitic vol] 11.4 fL9.5-13.5FThe Surgical Hospital at SouthwoodsPlatelets Auto (Bld) [#/Vol] Ordered By: Karla Lyons on 55-85-7903Srfssgihu (Bld) [#/Vol]178 10 3/oZ185-363 [facility] HospitalRBC Auto (Bld) [#/Vol]Ordered By: Karla Lyons on 37-00-2647EVO (Bld) [#/Vol]3.52 10 6/uLLow4.20-5.40[facility] Centererum or plasma albumin/globulin mass ratioOrdered By: Karla Lyons on 74-59-5301Spobzzv/Globulin [Mass ratio]0.5 {ratio}[facility] Centererum or plasma anion gap determinationOrdered By: Karla Lyons on 32-38-0481Ijamz gap [Moles/Vol]16.9 mmol/LFThe Surgical Hospital at Southwoods Basophils Auto (Bld) [#/Vol]Ordered By: Charan Casey on 15-68-5656Jebcychne (Bld) [#/Vol]0.0 10 3/uL0.0-0.1FThe Surgical Hospital at SouthwoodsBasophils/100 WBC Auto (Bld)Ordered By: Charan Casye on 81-48-1768Osccxzdzr/100 WBC (Bld)0.1 %Low0.2-2.0 [facility] HospitalEosinophils/100 WBC Auto (Bld)Ordered By: Charan Casey on 61-16-3953Bjuuophybxw/100 WBC (Bld)0.1 %Low0.9-7.0German HospitalErythrocyte distribution width Auto (RBC) [Ratio]Ordered By: Charan Casey on 00-54-6141Edrsraersfj distribution width (RBC) [Ratio]12.1 %11.0-15.0 [facility] HospitalGlobulin Calc (S) [Mass/Vol]Ordered By: Gustavo Cuevas on 54-90-7837Mgxsibza (S) [Mass/Vol]4.6 g/dLGerman HospitalGlomerular filtration rate (GFR) estimation in non- AmericanOrdered By: Gustavo Cuevas on 90-96-7496HRK/1.73 sq M.predicted among non-blacks MDRD (S/P/Bld) [Vol rate/Area]19 mL/min/{1.73_m2}Low>=60 mL/min/1.73m 2FThe Surgical Hospital at SouthwoodsHematocrit Auto (Bld) [Volume fraction]Ordered By: Charan Casey on 83-71-2414Qzablqxozv (Bld) [Volume fraction]33.7 %Low36.0-48.0German HospitalHemoglobin [Mass/volume] in BloodOrdered By: Charan Casey on 35-84-7696Iqcecgtxxx (Bld) [Mass/Vol]11.7 g/dLLow12.0-16.0German HospitalINR in Platelet poor plasma by Coagulation assayOrdered By: Gustavo Cuevas on 79-38-2543EON Coag (PPP) [Relative time]1.02 {INR}German HospitalComment on above:DESIRED INR:2.0-3.0 CONDITIONS NOT LISTED BELOW2.5-3.5 FOR PROSTHETIC HEART VALVE REPLACEMENT2.5-3.5 RECURRENT THROMBOSISLaboratory - Chemistry and Chemistry - challengeOrdered By: Gustavo Cuevas on 24-00-4804Umvssed [Mass/Vol]2.7 g/dLLow3.4-5.0German HospitalALP [Catalytic activity/Vol]90 U/W62-099MuobbakxxGerman Hospital ALT [Catalytic activity/Vol]23 U/J97-88VuiygriepGerman HospitalAST [Catalytic activity/Vol]25 U/W99-15DfxftkuwsGerman HospitalBilirubin [Mass/Vol]0.6 mg/dL0.2-1.0German HospitalCalcium [Mass/Vol]9.3 mg/dL8.5-10.1FThe Surgical Hospital at SouthwoodsChloride [Moles/Vol]99 mmol/L 98-107German HospitalCO2 [Moles/Vol]22.3 mmol/L21.0-32.0 [facility] HospitalCreatinine [Mass/Vol]2.58 mg/dLHigh0.55-1.02 [facility] HospitalGFR/1.73 sq M.predicted MDRD (S/P/Bld) [Vol rate/Area]23 mL/min/{1.73_m2}Low>=60 mL/min/1.73m 2FThe Surgical Hospital at SouthwoodsGlucose [Mass/Vol]81 mg/eT14-954NfralnpooGerman HospitalLactate [Moles/Vol]1.3 mmol/L0.4-2.0German HospitalPotassium [Moles/Vol]4.9 mmol/L3.5-5.1FThe Surgical Hospital at SouthwoodsProtein [Mass/Vol] 7.3 g/dL6.4-8.2FTwin City Hospitalodium [Moles/Vol]136 mmol/L 136-145German HospitalUrea nitrogen [Mass/Vol]72.0 mg/dLHigh 7.0-18.0German HospitalUrea nitrogen/Creatinine [Mass ratio] 27.9 mg/mgGerman HospitalLaboratory - Hematology and Cell countsOrdered By: Charan Casey on 26-29-8805IXE (Bld) [Velocity]104 mm/hHigh<=30 German HospitalImmature granulocytes/100 WBC (Bld)0.5 %0.0-0.5 [facility] HospitalLeukocytes [#/volume] corrected for nucleated erythrocytes in Blood by Automated counOrdered By: Charan Casey on 24-82-2480BDU corrected for nucl RBC Auto (Bld) [#/Vol]17.3 10 3/uLHigh4.0-11.0German HospitalLymphocytes Auto (Bld) [#/Vol]Ordered By: Charan Casey on 36-26-5443Irsahcrvcwd (Bld) [#/Vol]0.7 10 3/uLLow1.2-3.8German HospitalLymphocytes/100 WBC Auto (Bld)Ordered By: Charan Casey on 06-28-2025 Lymphocytes/100 WBC (Bld)4.0 %Low20.5-60.0[facility] HospitalH Auto (RBC) [Entitic mass]Ordered By: Charan Casey on 86-61-7346LEE (RBC) [Entitic mass]30.4 pg26.7-34.0German HospitalMCHC Auto (RBC) [Mass/Vol] Ordered By: Charan Casey on 51-46-3389YKER (RBC) [Mass/Vol]34.7 g/dL29.9-35.2 [facility] HospitalMCV Auto (RBC) [Entitic vol]Ordered By: Charan Casey on 63-77-0444IKG (RBC) [Entitic vol]87.5 fL81.0-99.0German HospitalMonocytes Auto (Bld) [#/Vol]Ordered By: Charan Casey on 06-28-2025 Monocytes (Bld) [#/Vol]0.7 10 3/uL0.3-0.8[facility] Monocytes/100 WBC Auto (Bld)Ordered By: Charan Casey on 37-28-2618Fyxyhvhke/100 WBC (Bld)4.0 %1.7-12.0[facility] HospitalNeutrophils Auto (Bld) [#/Vol]Ordered By: Charan Casey on 11-10-9378Kvhbfskfcff (Bld) [#/Vol]15.8 10 3/uL High1.4-6.5FThe Surgical Hospital at SouthwoodsNeutrophils/100 WBC Auto (Bld) Ordered By: Charan Casey on 21-55-8832Xszjfbzrmsc/100 WBC (Bld)91.3 %High43.0-75.0 [facility] HospitalNo Panel InformationOrdered By: Charan Casey on 83-38-5496B-Reactive Protein, Ilacriwmpboh28.00 mg/dLHigh<=0.50German HospitalEosinophils # (Auto)0.0 10 3/uL0.0-0.7FThe Surgical Hospital at SouthwoodsImmature Granulocyte # (Auto)0.09 10 3/uLHigh0.00-0.03[facility] HospitalNo Panel InformationOrdered By: Gustavo Cuevas on 06-28-2025 Venous Blood Partial Pressure CO241.7 mm[Hg]40.0-52.0[facility] HospitalVenous Blood pH7.3547.330-7.430[facility] HospitalPlatelet mean volume Auto (Bld) [Entitic vol]Ordered By: Charan Casey on 83-70-3206Hbtzyvow mean volume (Bld) [Entitic vol]11.8 fL9.5-13.5FThe Surgical Hospital at Southwoods Platelets Auto (Bld) [#/Vol]Ordered By: Charan Casey on 57-28-5612Wsrnmhjpr (Bld) [#/Vol]178 10 3/sV337-100ExqrccsumGerman HospitalProthrombin time (PT) Ordered By: Gustavo Cuevas on 29-18-7935YE Coag (PPP) [Time]10.8 s9.0-11.6FThe Surgical Hospital at SouthwoodsRBC Auto (Bld) [#/Vol]Ordered By: Charan Casey on 33-70-0254RBP (Bld) [#/Vol]3.85 10 6/uLLow4.20-5.40[facility] Medical Centererum or plasma albumin/globulin mass ratioOrdered By: Gustavo Cuevas on 85-12-2055Hwbhtua/Globulin [Mass ratio]0.6 {ratio}[facility] Medical Centererum or plasma anion gap determinationOrdered By: Gustavo Cuevas on 63-83-4158Wucpu gap [Moles/Vol]19.6 mmol/LFThe Surgical Hospital at SouthwoodsX-ray reportOrdered By: Néstor Mays on 47-76-2905Gprne reportOHIOHE[facility] DUBLIN [place] [address] XRay Report Signed Patient: Rita Cobb MR#: [id number] : 1960 Acct:[id number] Age/Sex: 64 / F ADM Date: 5 [facility]: Type[facility] Attending Dr: Acosta Castro DPM [...] Mays M.D. 06/05/2025 5:41 PM Dictation Location: [place] [address] Transcribed By: [facility] 06/05/251740 Dictated By: Néstor Mays MD 06/05/251734 Signed By: 06/05/251740 [facility] Work Phone: XR foot BI 3Von 71-49-0329ZT foot BI 3V[facility] [place] [address] [place] [address] XRay Report Signed Patient: Rita Cobb MR#: [id number] : 1960 Acct:[id number] Age/Sex: 64 / F ADM Date: 06/05/25 Loc: XDS Room: Type: [facility] Attending Dr: Acosta Castro DPM [...] Mays M.D. 06/05/2025 5:41 PM Dictation Location: [place] [address] Transcribed By: [facility] 06/05/25 1741 Dictated By: Néstor Mays MD 06/05/251734 Signed By: 06/05/25 174[facility] Physician UapokFoF5u (Bld) [Mass fraction]on 74-14-1643Keldpnufooebwd and review of laboratory resultsAbAshe Memorial HospitalLaboratory - Hematology and Cell countson 48-44-8569VzE4d (Bld) [Mass fraction]8.1 %[facility] CenterMR shoulder RT wo conon 87-04-1843GI shoulder RT wo [facility] Main [place] [address] [place] [address] MRI Report Signed Patient: Rita Cobb MR#: [id number] : 1960 Acct:[id number] Age/Sex: 64 / F ADM Date: 01/23/25 Loc: [facility] Room: Type: [facility] Attending Dr: Nader Curry DO [...] Timothy Levi M.D.01/26/2025 9:38 AM Dictation Location: [place] [address] Transcribed By: [facility] 01/26/25 0938 Dictated By: Timothy Levi II, MD 01/26/25 0902 Signed By: 01/26/25 0938[facility] Physician GroupInfluenza virus B Ag [Presence] in Upper respiratory specimen by Rapid immunoassayon 95-25-5133SUXPU Ag IA.rapid Ql (Nph)Influenza virus B Ag [Presence] in Upper respiratory specimen by Rapid immunoassayGerman HospitalNo Panel Informationon 12-09-2024 Influenza Type A (Rapid)NegativeGerman HospitalPO SARS CoV-2 AntigenNegativeGerman HospitalNo Panel InformationOrdered By: Charan Casey on 14-25-0687TIO (POC)German HospitalRSV (POC) German HospitalX-ray reportOrdered By: Néstor Mays on 08-05-8915Kzovb reportOHIOHE[facility] Main [address] [address] XRay Report Signed Patient: Rita Cobb MR#: [id number] : 1960 Acct:[id number] Age/Sex: 64 / F ADM Date: 5 [...] Néstor Mays M.D.12/08/2024 3:59 PM Dictation Location: [place] [address] Transcribed By: FRANKY 12/08/24 1559 Dictated By: Néstor Mays MD 12/08/24 1524 Signed By: 12/08/24 1559 [facility] Work Phone: XR chest 2V*on 84-03-2749VW chest 2V*[facility] Main [address] [address] XRay Report Signed Patient: Rita Cobb MR#: [id number] : 1960 Acct:[id number] Age/Sex: 64 / F ADM Date: 12/08/24 [facility]: Type: [facility] Attending Dr: Charan [...] Néstor Mays M.D.12/08/2024 3:59 PM Dictation Location: [place] [address] Transcribed By: [facility] 12/08/24 1559 Dictated By: Néstor Mays MD 12/08/24 1524 Signed By: 12/08/24 1559[facility] Physician GroupXR shoulder RT min 2V*on 38-70-9410YR shoulder RT min 2V*[facility] [address] [place] [address] XRay Report Signed Patient: Rita Cobb MR#: [id number] : 1960 Acct:[id number] Age/Sex: 63 / F ADM Date: 10/25/24 Loc: [facility] Room: Type: [facility] Attending Dr: Nader Curry DO [...] Ibis Crisostomo M.D.10/25/2024 9:11 AM Dictation Location: [place] [address] Transcribed By: [facility] 10/25/24 09 Dictated By: Ibis Crisostomo MD 10/25/24 0908 Signed By: 10/25/24 0911[facility] Physician QgsydTjR9x (Bld) [Mass fraction]on 17-88-4880Xtfsyxzjylgdnw and review of laboratory resultsNoTomah Memorial HospitalLaboratory - Hematology and Cell countson 95-54-6133YtL8u (Bld) [Mass fraction]7.6 %[facility] CenterMM screening mammo BI w/CADon 84-93-1729DD screening mammo BI w/CADOHIOHEALTH [facility]BL[facility] Main [place] [address] [place] [address] Mammography Report Signed Patient: Rita Cobb MR#: [id number] : 1960 Acct:[id number] Age/Sex: 63 / F ADM Date: 09/07/24 Loc: [place] Room: Type: [facility] Attending Dr: Referral Self Copies [...] Brown Jr. DDerekODerek09/07/2024 9:04 AM Dictation Location: [facility] Transcribed By: FRANKY 09/07/24903 Dictated By: Sudhir Brown Jr, DO 09/07/24899 Signed By: 09/07/24903[facility] Physician GroupAlbumin [Mass/volume] in Serum or Plasma by Bromocresol green (BCG) dye binding methoOrdered By: Elpidio Whipple on 65-23-1535Lhhtqdd BCG dye [Mass/Vol]4.3 g/dL3.5-5.7FThe Surgical Hospital at SouthwoodsAutomated erythrocytes count in urine sediment (number/area)Ordered By: Elpidio Whipple on 59-32-0584ZTI Auto (Urine sed) [#/Area]1-2 [HPF]0-4FThe Surgical Hospital at SouthwoodsAutomated leukocytes count in urine sediment (number/area)Ordered By: Elpidio Whipple on 90-91-0193XNJ Auto (Urine sed) [#/Area] 5-9 [HPF]0-4FThe Surgical Hospital at SouthwoodsBilirubin Test strip Ql (U)Ordered By: Elpidio Whipple on 03-44-1362Ftyzpzjgj Ql (U)NegativeNegativeGerman HospitalCalcium [Mass/volume] in Serum or PlasmaOrdered By: Elpidio Whipple on 28-08-8845Fuzkpww [Mass/Vol]9.8 mg/dL8.6-10.3FThe Surgical Hospital at Southwoods Carbon dioxide, total [Moles/volume] in Serum or PlasmaOrdered By: Elpidio Whipple on 94-99-9952EN2 [Moles/Vol]30.4 mmol/L21.0-31.0German HospitalChloride [Moles/volume] in Serum or PlasmaOrdered By: Elpidio Whipple on 01-68-3974Blbqhglb [Moles/Vol]103 mmol/F17-267AvrbptkhpGerman Hospital Color Auto (U)Ordered By: Elpidio Whipple on 41-31-9940Hrfep (U)Dark yellowYellow German HospitalCreatinine [Mass/volume] in Serum or Plasma Ordered By: Elpidio Whipple on 21-51-5512Orbljlzqnl [Mass/Vol]1.19 mg/dL0.60-1.20 German HospitalCreatinine [Mass/volume] in UrineOrdered By: Elpidio Whipple on 90-04-9461Eoyobivetr (U) [Mass/Vol]101.0 mg/dLGerman HospitalComment on above:No reference range establishedErythrocyte distribution width Auto (RBC) [Ratio]Ordered By: Elpidio Whipple on 02-29-2024 Erythrocyte distribution width (RBC) [Ratio]12.9 %11.9-15.3FThe Surgical Hospital at SouthwoodsGlucose [Mass/volume] in Serum or PlasmaOrdered By: Elpidio Whipple on 00-63-9939Prftsnb [Mass/Vol]164 mg/rB29-543DiowhnzpsGerman Hospital Comment on above:ADA recommended reference rangeRandom Glucose Reference Range is dependent on time and content of last meal. Glucose of more than 200 mg/dL in a nonstressed, ambulatory subject supports the diagnosisof Diabetes Mellitus. Hematocrit Auto (Bld) [Volume fraction]Ordered By: Elpidio Whipple on 02-29-2024 Hematocrit (Bld) [Volume fraction]39.7 %34.0-46.4FThe Surgical Hospital at SouthwoodsHemoglobin [Mass/volume] in BloodOrdered By: Elpidio Whipple on 02-29-2024 Hemoglobin (Bld) [Mass/Vol]13.4 g/dL11.8-15.4FThe Surgical Hospital at Southwoods Ketones Auto test strip (U) [Mass/Vol]Ordered By: Elpidio Whipple on 02-29-2024 Ketones (U) [Mass/Vol]NegativeNegativeGerman Hospital Laboratory - UrinalysisOrdered By: Elpidio Whipple on 62-59-5377Lhsdsem casts LM Ql (Urine sed)0-8 [LPF]0-8German HospitalLeukocytes [#/volume] corrected for nucleated erythrocytes in Blood by Automated counOrdered By: Elpidio Whipple on 58-07-1245RZZ corrected for nucl RBC Auto (Bld) [#/Vol]4.5 10*3/uL 3.8-11.6FThe Surgical Hospital at SouthwoodsMCH Auto (RBC) [Entitic mass]Ordered By: Elpidio Whipple on 28-48-5772LJJ (RBC) [Entitic mass]29.1 pg24.7-34.3FThe Surgical Hospital at SouthwoodsMCHC Auto (RBC) [Mass/Vol]Ordered By: Elpidio Whipple on 88-92-5189WXPB (RBC) [Mass/Vol]33.8 g/dL32.0-35.0German HospitalMCV Auto (RBC) [Entitic vol]Ordered By: Elpidio Whipple on 07-51-6067XNF (RBC) [Entitic vol]86.2 aC15-853HmmweppieGerman HospitalMagnesium [Mass/volume] in Serum or PlasmaOrdered By: Elpidio Whipple on 70-04-1883Qvcuwvghw [Mass/Vol]1.6 mg/dL1.9-2.7FThe Surgical Hospital at SouthwoodsNitrite Test strip Ql (U)Ordered By: Elpidio Whipple on 10-61-3032Kxbejgr Ql (U)NegativeNegativeGerman HospitalNo Panel InformationOrdered By: Elpidio Whipple on 20-40-7221Alursqrli GFR (CKD-EPI)51.377 mL/MinGerman Hospital Pharmacy Creatinine Clearance (ChemN/[facility] Parathyrin.intact [Mass/volume] in Serum or PlasmaOrdered By: Elpdiio Whipple on 36-42-4561Lfllsmfdsa.intact [Mass/Vol]53.1 pg/oZ83-39NohsvdgjkGerman HospitalPhosphate [Mass/volume] in Serum or PlasmaOrdered By: Elpidio Whipple on 87-24-4872Jajczdugh [Mass/Vol]2.8 mg/dL2.5-4.5FThe Surgical Hospital at Southwoods Platelet mean volume Auto (Bld) [Entitic vol]Ordered By: Elpidio Whipple on 01-62-9304Sejydgkq mean volume (Bld) [Entitic vol]9.5 fL6.3-10.7FThe Surgical Hospital at SouthwoodsPlatelets Auto (Bld) [#/Vol]Ordered By: Elpidio Whipple on 18-62-0177Ntdywchxf (Bld) [#/Vol]174 10*3/oC395-535RphquxewuGerman HospitalPotassium [Moles/volume] in Serum or PlasmaOrdered By: Elpidio Whipple on 06-63-6429Imgxnqtje [Moles/Vol]4.6 mmol/L3.5-5.1FThe Surgical Hospital at SouthwoodsProtein Auto test strip (U) [Mass/Vol]Ordered By: Elpidio Whipple on 62-37-2090Lnoxypb (U) [Mass/Vol]30 mg/dLNegativeGerman HospitalProtein [Mass/volume] in UrineOrdered By: Elpidio Whipple on 80-13-2360Invysnl (U) [Mass/Vol]43 mg/dL0-9German HospitalRBC Auto (Bld) [#/Vol]Ordered By: Elpidio Whipple on 21-83-5852ZRI (Bld) [#/Vol]4.61 10*6/uL 3.60-5.00[facility] Centererum or plasma anion gap determinationOrdered By: Elpidio Whipple on 77-71-1528Ghmor gap [Moles/Vol]11.2 mmol/L6.0-15.0[facility] Medical Centerodium [Moles/volume] in Serum or PlasmaOrdered By: Elpidio Whipple on 19-53-2636Hhgmve [Moles/Vol]140 mmol/P631-488 [facility] Medical Centerpecific gravity Auto test strip (U) [Rel density]Ordered By: Elpidio Whipple on 90-54-0718Ckxevvsb gravity (U) [Rel density] 1.0191.001-1.030[facility] Medical Centerquamous epithelial cells detection in urine sediment by light microscopyOrdered By: Elpidio Whipple on 65-63-3296Eeckttammd cells.squamous LM Ql (Urine sed)10-19 [HPF]0-2FThe Surgical Hospital at SouthwoodsUrate [Mass/volume] in Serum or PlasmaOrdered By: Elpidio Whipple on 65-02-0545Fniaq [Mass/Vol]7.1 mg/dL2.3-6.6FThe Surgical Hospital at SouthwoodsUrea nitrogen [Mass/volume] in Serum or PlasmaOrdered By: Elpidio Whipple on 50-69-6878Lcvo nitrogen [Mass/Vol]29 mg/dL7-25[facility] Urine bacteria detection by automated methodOrdered By: Elpidio Whipple on 13-39-1210Ovjjlozp Auto Ql (U)None seenNone SeenGerman HospitalUrine clarity by refractometry automatedOrdered By: Elpidio Whipple on 09-33-5776Gtsizuv Refractometry automated (U)ClearClearFThe Surgical Hospital at SouthwoodsUrine culture routineOrdered By: Elpidio Whipple on 86-48-8007Ueoycrgh identified Cx Nom (U)2 DaysGerman HospitalUrine glucose measurement by automated test strip (mass/volume)Ordered By: Elpidio Whipple on 73-05-5264Yfhahqg Auto test strip (U) [Mass/Vol]Normal mg/dLNoAccess Hospital DaytonUrine hemoglobin detection by automated test stripOrdered By: Elpidio Whipple on 92-46-3791Vzjosxxmav Auto test strip Ql (U)NegativeNegative German HospitalUrine leukocyte esterase detection by automated test stripOrdered By: Elpidio Whipple on 60-96-1218Tpcuqfcec esterase Auto test strip Ql (U)2+NegativeGerman HospitalUrine protein/creatinine ratioOrdered By: Elpidio Whipple on 37-06-9720Oftkqgs/Creatinine (U) [Ratio]426 mg/g{Cre}0-200German HospitalUrobilinogen Auto test strip (U) [Mass/Vol]Ordered By: Elpidio Whipple on 82-99-9730Jpilyxlqfemy (U) [Mass/Vol]Normal mg/dLNoAccess Hospital DaytonVitamin D+Metabolites [Mass/volume] in Serum or PlasmaOrdered By: Elpidio Whipple on 12-53-3189Xxtctqe D+Metabolites [Mass/Vol]48.0 ng/iX78-359GcefqjzxuGerman HospitalComment on above: VITAMIN D STATUS 25(OH)VITAMIN D RANGE (ng/mL) Deficient <20 Insufficient 20 to <54Jhykrzcvhp76 to 100Reference: Nayeli MF,Hannah NC, Jose GILBERT, et al. Evaluation,treatment, and prevention of vitamin D deficiency; an Endocrine Society clinical practice guideline. JCEM. 2010; 96(7):1911-30.pH Auto test strip (U)Ordered By: Elpidio Whipple on 89-38-9964mE (U)5.5 [pH]5.0-9.0German HospitalRSVon 90-45-2232TPU Ag IA Ql (Unsp spec)NegativeNoozarks community hospital Bio[employer] Other Alanine aminotransferase [Enzymatic activity/volume] in Serum or PlasmaOrdered By: Charan Casey on 56-64-2234PLC [Catalytic activity/Vol]16 U/L7-52German HospitalAlbumin [Mass/volume] in Serum or Plasma by Bromocresol green (BCG) dye binding methoOrdered By: Charan Casey on 34-11-7749Rcphxwz BCG dye [Mass/Vol]4.2 g/dL3.5-5.7FThe Surgical Hospital at SouthwoodsAlkaline phosphatase [Enzymatic activity/volume] in Serum or PlasmaOrdered By: Charan Casey on 04-96-8783OGK [Catalytic activity/Vol]65 U/L 34-104German HospitalAspartate aminotransferase [Enzymatic activity/volume] in Serum or PlasmaOrdered By: Charan Casey on 35-45-5203YDE [Catalytic activity/Vol]16 U/N20-47ZefbcdlvuGerman Hospital Bilirubin.total [Mass/volume] in Serum or PlasmaOrdered By: Charan Casey on 80-73-2117Hghjdfyvm [Mass/Vol]0.6 mg/dL0.3-1.0[facility] Calcium [Mass/volume] in Serum or PlasmaOrdered By: Charan Casey on 11-26-2023 Calcium [Mass/Vol]9.8 mg/dL8.6-10.3FThe Surgical Hospital at SouthwoodsCarbon dioxide, total [Moles/volume] in Serum or PlasmaOrdered By: Charan Casey on 35-18-6004ZR5 [Moles/Vol]34.6 mmol/L21.0-31.0[facility] Chloride [Moles/volume] in Serum or PlasmaOrdered By: Charan Casey on 11-26-2023 Chloride [Moles/Vol]101 mmol/T53-970TltirqlxmGerman HospitalCholesterol [Mass/volume] in Serum or PlasmaOrdered By: Charan Casey on 53-25-3194Tddjauiewru [Mass/Vol]140 mg/uO698-945KxznkkrakGerman HospitalComment on above: Chol less than 200 mg/dl low riskChol 201-239 mg/dl borderline riskChol 240 mg/dl and greater high riskCholesterol in LDL Calc [Mass/Vol]Ordered By: Charan Casey on 67-24-1969Ggyjgtuixot in LDL [Mass/Vol]56 mg/dL0-100German HospitalComment on above:LDL ATP III CLASSIFICATIONLDL less than 100 mg/dL OptimalLDL 100-129 mg/dL Near or above whwyegdNDF125-654 mg/dL Borderline highLDL 160-189 mg/dL HighLDL greater than 189 mg/dL Very highCholesterol in VLDL Calc [Mass/Vol]Ordered By: Charan Casey on 87-28-4628Cgsgdffniem in VLDL [Mass/Vol]45 mg/dLGerman HospitalCreatinine [Mass/volume] in Serum or PlasmaOrdered By: Charan Casey on 58-19-7097Maujqnfsec [Mass/Vol]1.25 mg/dL0.60-1.20German HospitalGlobulin Calc (S) [Mass/Vol] Ordered By: Charan Casey on 07-97-2421Wuqebcsb (S) [Mass/Vol]2.6 g/dLGerman HospitalGlucose [Mass/volume] in Serum or PlasmaOrdered By: Charan Casey on 06-12-3545Prajzwi [Mass/Vol]122 mg/oG98-819EwemazpcfGerman HospitalComment on above:ADA recommended reference rangeRandom Glucose Reference Range is dependent on time and content of last meal. Glucose of more than 200 mg/dL in a nonstressed, ambulatory subject supports the diagnosisof Diabetes Mellitus.No Panel InformationOrdered By: Charan Casey on 87-78-1090Gpzlmjxvt GFR (CKD-EPI)48.432 mL/MinGerman HospitalPharmacy Creatinine Clearance (ChemN/AFirelands Cleveland Clinic FoundationPotassium [Moles/volume] in Serum or PlasmaOrdered By: Charan Casey on 13-72-9985Upavjhalh [Moles/Vol]4.6 mmol/L3.5-5.1FThe Surgical Hospital at SouthwoodsProtein [Mass/volume] in Serum or PlasmaOrdered By: Charan Casey on 76-02-4615Iasgmdi [Mass/Vol]6.8 g/dL6.4-8.9 [facility] Centererum or plasma albumin/globulin mass ratio Ordered By: Charan Casey on 90-78-6512Vykvshl/Globulin [Mass ratio]1.6 {ratio} [facility] Centererum or plasma anion gap determinationOrdered By: Charan Casey on 92-85-1326Xuaul gap [Moles/Vol]9.0 mmol/L6.0-15.0[facility] Centererum or plasma high density lipoprotein (HDL) cholesterol measurementOrdered By: Charan Casey on 81-46-6171Habsszsidii in HDL [Mass/Vol]39 mg/qJ77-71CovhqjzlrGerman HospitalComment on above:HDL CHOL ATP-III CLASSIFICATION Cardiovascular RiskHDL > or equal to 60 mg/dL LOWHDL < 40 mg/dL HIGHSerum or plasma total cholesterol/high density lipoprotein (HDL) cholesterol mass ratOrdered By: Charan Casey on 11-26-2023 Cholesterol.total/Cholesterol in HDL [Mass ratio]3.6 {ratio}<5.0[facility] Medical Centerodium [Moles/volume] in Serum or PlasmaOrdered By: Charan Casey on 71-61-4916Lfcxos [Moles/Vol]140 mmol/C032-993NpssslqpsGerman HospitalTriglyceride [Mass/volume] in Serum or PlasmaOrdered By: Charan Casey on 82-00-4401Damljvnrftzk [Mass/Vol]227 mg/dL0-149[facility] Comment on above:TRIG ATP III CLASSIFICATIONTRIG less than 150 mg/dL NormalTRIG 150-199 mg/dL Borderline highTRIG 200-500 mg/dL High TRIG greater than 500 mg/dL Very highStandard traceable to the Center for Disease Conrtrol and Prevention (CDC) test method.Urea nitrogen [Mass/volume] in Serum or PlasmaOrdered By: Charan Casey on 39-79-9023Hlwr nitrogen [Mass/Vol]32 mg/dL7German HospitalGlucose Glucometer (BldC) [Mass/Vol]Ordered By: Yasmeen Treadwell on 08-88-3113Rkdorty [Mass/Vol]150 mg/dLGerman HospitalComment on above:Random Glucose Reference Range is dependent on time and content of last meal. Glucose of more than 200 mg/dL in a nonstressed, ambulatory subject supports the diagnosis of Diabetes Mellitus.Albumin [Mass/volume] in Serum or Plasma by Bromocresol green (BCG) dye binding methoOrdered By: Elpidio Whipple on 77-05-3255Psuwhnj BCG dye [Mass/Vol]4.5 g/dL3.5-5.7FThe Surgical Hospital at SouthwoodsAutomated erythrocytes count in urine sediment (number/area)Ordered By: Elpidio Whipple on 85-94-8087KOT Auto (Urine sed) [#/Area]None seen [HPF]0-4 German HospitalAutomated leukocytes count in urine sediment (number/area)Ordered By: Elpidio Whipple on 18-28-1560PCC Auto (Urine sed) [#/Area] 1-2 [HPF]0-4FThe Surgical Hospital at SouthwoodsBilirubin Test strip Ql (U)Ordered By: Elpidio Whipple on 25-42-5778Viuojjsyg Ql (U)NegativeNegativeGerman HospitalCalcium [Mass/volume] in Serum or PlasmaOrdered By: Elpidio Whipple on 35-49-8121Uzcdlgh [Mass/Vol]9.5 mg/dL8.6-10.3FThe Surgical Hospital at Southwoods Carbon dioxide, total [Moles/volume] in Serum or PlasmaOrdered By: Elpidio Whipple on 97-58-3987QK9 [Moles/Vol]29.7 mmol/L21.0-31.0German HospitalChloride [Moles/volume] in Serum or PlasmaOrdered By: Elpidio Whipple on 94-41-4735Nncbpdgo [Moles/Vol]106 mmol/A21-684SnipkzvqfGerman Hospital Color Auto (U)Ordered By: Elpidio Whipple on 32-97-1531Ppulh (U)Dark yellowYellow German HospitalCreatinine [Mass/volume] in Serum or Plasma Ordered By: Elpidio Whipple on 37-92-3160Vyfpfadxwv [Mass/Vol]1.29 mg/dL0.60-1.20 German HospitalCreatinine [Mass/volume] in UrineOrdered By: Elpidio Whipple on 53-44-6530Qknytxxjsr (U) [Mass/Vol]87.0 mg/dL11.0-20.0German HospitalErythrocyte distribution width Auto (RBC) [Ratio]Ordered By: Elpidio Whipple on 51-61-9758Epxfbhqhtie distribution width (RBC) [Ratio]13.5 % 11.9-15.3FThe Surgical Hospital at SouthwoodsGlucose [Mass/volume] in Serum or PlasmaOrdered By: Elpidio Whipple on 60-81-3637Ebbdqwe [Mass/Vol]97 mg/pM10-661 German HospitalComment on above:ADA recommended reference rangeRandom Glucose Reference Range is dependent on time and content of last meal. Glucose of more than 200 mg/dL in a nonstressed, ambulatory subject supports the diagnosisof Diabetes Mellitus.Hematocrit Auto (Bld) [Volume fraction]Ordered By: Elpidio Whipple on 45-98-4465Umewskujxy (Bld) [Volume fraction] 42.7 %34.0-46.4FThe Surgical Hospital at SouthwoodsHemoglobin [Mass/volume] in BloodOrdered By: Elpidio Whipple on 34-89-7198Ricctniuyv (Bld) [Mass/Vol]14.3 g/dL 11.8-15.4FThe Surgical Hospital at SouthwoodsKetones Auto test strip (U) [Mass/Vol] Ordered By: Elpidio Whipple on 71-31-8617Sdhpsgg (U) [Mass/Vol]NegativeNegative German HospitalLaboratory - UrinalysisOrdered By: Elpidio Whipple on 73-37-1594Mqmizbp casts LM Ql (Urine sed)0-8 [LPF]0-8German HospitalLeukocytes [#/volume] corrected for nucleated erythrocytes in Blood by Automated counOrdered By: Elpidio Whipple on 95-93-5101UDR corrected for nucl RBC Auto (Bld) [#/Vol]7.7 10*3/uL3.8-11.6FThe Surgical Hospital at Southwoods MCH Auto (RBC) [Entitic mass]Ordered By: Elpidio Whipple on 17-87-3393QUI (RBC) [Entitic mass]29.1 pg24.7-34.3FThe Surgical Hospital at SouthwoodsMCHC Auto (RBC) [Mass/Vol]Ordered By: Elpidio Whipple on 39-52-7651WAXR (RBC) [Mass/Vol]33.6 g/dL 32.0-35.0German HospitalMCV Auto (RBC) [Entitic vol]Ordered By: Elpidio Whipple on 09-66-4960AHL (RBC) [Entitic vol]86.5 cN32-573PxdhqyvqbGerman HospitalMagnesium [Mass/volume] in Serum or PlasmaOrdered By: Elpidio Whipple on 09-54-9213Qyktreamf [Mass/Vol]1.9 mg/dL1.9-2.7FThe Surgical Hospital at SouthwoodsNitrite Test strip Ql (U)Ordered By: Elpidio Whipple on 09-14-2023 Nitrite Ql (U)NegativeNegativeGerman HospitalNo Panel InformationOrdered By: Elpidio Whipple on 95-63-4177Suteiwlxq GFR (CKD-EPI)46.926 mL/MinGerman HospitalPharmacy Creatinine Clearance (ChemN/A German HospitalParathyrin.intact [Mass/volume] in Serum or PlasmaOrdered By: Elpidio Whipple on 81-90-3136Vltofvymnb.intact [Mass/Vol]133.6 pg/zJ09-60RkhfkhaxvGerman HospitalPhosphate [Mass/volume] in Serum or PlasmaOrdered By: Elpidio Whipple on 30-69-4745Ovvxxoygk [Mass/Vol]3.4 mg/dL3.7-7.2 German HospitalPlatelet mean volume Auto (Bld) [Entitic vol] Ordered By: Elpidio Whipple on 82-03-7447Yferrtul mean volume (Bld) [Entitic vol] 10.0 fL6.3-10.7FThe Surgical Hospital at SouthwoodsPlatelets Auto (Bld) [#/Vol] Ordered By: Elpidio Zarater on 33-29-0707Ryatqcofr (Bld) [#/Vol]193 10*3/pO046-144 German HospitalPotassium [Moles/volume] in Serum or Plasma Ordered By: Elpidio Sole on 73-75-8907Pojspxqni [Moles/Vol]4.7 mmol/L3.5-5.1 German HospitalProtein Auto test strip (U) [Mass/Vol]Ordered By: Elpidio Sole on 08-70-6716Rdkbfeg (U) [Mass/Vol]NegativeNegativeGerman HospitalProtein [Mass/volume] in UrineOrdered By: Elpidio Sole on 63-76-5199Xhboddw (U) [Mass/Vol]12 mg/dL0-9German HospitalRBC Auto (Bld) [#/Vol]Ordered By: Elpidio Silvadir on 63-47-9935WDY (Bld) [#/Vol]4.93 10*6/uL3.60-5.00[facility] Centererum or plasma anion gap determinationOrdered By: Elpidio Sole on 32-42-3098Bipad gap [Moles/Vol]11.0 mmol/L6.0-15.0[facility] Centerodium [Moles/volume] in Serum or PlasmaOrdered By: Elpidio Sole on 40-29-4742Paqszf [Moles/Vol]142 mmol/U808-675 [facility] Centerpecific gravity Auto test strip (U) [Rel density]Ordered By: Elpidio Sole on 29-45-7938Efopqreg gravity (U) [Rel density] 1.0201.001-1.030[facility] Centerquamous epithelial cells detection in urine sediment by light microscopyOrdered By: Elpidio Zarater on [id number] cells.squamous LM Ql (Urine sed)3-4 [HPF]0-2FThe Surgical Hospital at SouthwoodsUrate [Mass/volume] in Serum or PlasmaOrdered By: Elpidio Sole on 36-65-4093Nxqff [Mass/Vol]6.2 mg/dL2.3-6.6FThe Surgical Hospital at SouthwoodsUrea nitrogen [Mass/volume] in Serum or PlasmaOrdered By: Elpidio Whipple on 00-35-5330Mnop nitrogen [Mass/Vol]46 mg/dL7-25[facility] bacteria detection by automated methodOrdered By: Elpidio Whipple on 96-99-0420Enhnjykh Auto Ql (U)None seenNone SeenGerman HospitalUrine clarity by refractometry automatedOrdered By: Elpidio Whipple on 38-27-6585Vqdylln Refractometry automated (U)ClearClearFThe Surgical Hospital at SouthwoodsUrine glucose measurement by automated test strip (mass/volume) Ordered By: Elpidio Whipple on 28-47-1149Ucellde Auto test strip (U) [Mass/Vol] Normal mg/dLFostoria City HospitalUrine hemoglobin detection by automated test stripOrdered By: Elpidio Whipple on 77-93-4863Ksnivsigmv Auto test strip Ql (U)NegativeNegativeGerman HospitalUrine leukocyte esterase detection by automated test stripOrdered By: Elpidio Whipple on 09-14-2023 Leukocyte esterase Auto test strip Ql (U)1+NegativeGerman HospitalUrine protein/creatinine ratioOrdered By: Elpidio Sole on 09-14-2023 Protein/Creatinine (U) [Ratio]138 mg/g{Cre}0-200German HospitalUrobilinogen Auto test strip (U) [Mass/Vol]Ordered By: Elpiido Whipple on 50-56-9513Edxmpekkpawz (U) [Mass/Vol]Normal mg/dLNoAccess Hospital DaytonVitamin D+Metabolites [Mass/volume] in Serum or PlasmaOrdered By: Elpidio Whipple on 94-22-4446Cecurba D+Metabolites [Mass/Vol]50.6 ng/lI27-210 German HospitalComment on above:VITAMIN D STATUS 25(OH)VITAMIN D RANGE (ng/mL) Deficient <20 Insufficient 20 to <39Hhvqdvaprn75 to 100Reference: Nayeli MF,Hannah NC, Jose GILBERT, et al. Evaluation,treatment, and prevention of vitamin D deficiency; an Endocrine Society clinical practice guideline. JCEM. 2011 Jorge; 96(7):1911-30.pH Auto test strip (U)Ordered By: Elpidio Whipple on 54-89-2665hT (U)5.5 [pH]5.0-9.0German HospitalUrine 10 SGon 52-08-5883Hctyebh DL <= 20 mg/L (U) [Mass/Vol]NegativeSturgis Bio[employer] Other pH (U)6.0 [pH][place] [employer] Other urine 10 SGNegativeNoozarks community hospital [employer] Other urine 10 SG1.010Noozarks [facility] hospital [employer] Other urine 10 SG0.2N[facility] [employer] Other Height or Weight NOT Doneon 24-63-3110Uryvd depression screening assessmentNoHarborview Medical Center [employer] DO Work Phone: Fall risk assessmenta) No falls within the last year [facility] [employer] DO Work Phone: Tobacco use status CPHSb) NoMConfluence Health Hospital, [facility] [employer]andhalf DO Work Phone: Office Visit (Cardiology)on 42-24-5480Yvmzht-up visit Diagnoses/Problems Assessed CAD (coronary artery disease) [...] any trouble since her angioplasty. She has Yhmjrul-Zvabv-Jwiuo disease and had recent surgery on the [...] machine patient has been compliant with it. 7?Poodabo-Nqmmv-Gktka joint in the ankles status post recent [...] TABLET DAILY. Vitamin D (Ergocalciferol) 1.25 MG (49310 UT) Oral CapsuleTake 1 tablet twice weekly Allergies Medication Erythromycin Base TABS Adverse Reaction; Gatrointestinal upset; Updated By: Adrianna Emanuel; (more content not included)...NormalUH Vernon Memorial HospitalPOINT OF CARE GLUCOSEon 04-13-2023 Glucose [Mass/Vol]215 mg/dLCritically okal79-669Spu [facility] HospitalComment on above:Performed By: #### POCGLUC ####[facility] [address] StreetBellevue, [place] [address]Bz. Yilan ChangPROF CHEM 8 (BAS METB)on 03-31-2023 Anion gap [Moles/Vol]9.6 mmol/LNormalThe [facility] HospitalComment on above: Performed By: #### BMP ####[facility] [address] [place] [address]Dr.Yilan ChangCalcium [Mass/Vol]10.3 mg/dLCritically high8.5-10.1The [facility] HospitalComment on above:Performed By: #### BMP ####[facility] [address] [place], [place] [address]Dr. Yilan ChangChloride [Moles/Vol]103 mmol/QDsocjc79-373Zjs [facility] Comment on above:Performed By: #### BMP ####[facility] Pdclnkur[address] [place], [place] [address]Dr.Yilan ChangCO2 [Moles/Vol]31.0 mmol/L Uoemyn72.0-32.0The [facility] HospitalComment on above:Performed By: #### BMP ####[facility] [address] [place], [place] [address]Dr. Yilan ChangCreatinine [Mass/Vol]1.48 mg/dLCritically high0.55-1.02The [facility] HospitalComment on above:Performed By: #### BMP ####[facility] [address] [place], [place] [address]Dr.Yilan ChangEGFR-AF ZLUSQNTX38 mL/min/1.30b8Jplywtveia low>=60The [facility] HospitalComment on above: Performed By: #### BMP ####[facility] [address] [place] [address]Dr.Yilan ChangEGFR-NON AF BBVYOMQK36 mL/min/1.73m2 Critically low>=60The [facility] HospitalComment on above:Performed By: #### BMP ####[facility] [address] [place], [place] [address]Dr. Yilan ChangGlucose [Mass/Vol]173 mg/dLCritically qequ56-726Xgf [facility] Comment on above:Performed By: #### BMP ####[facility] [address] [place], [place] [address]Rg.Yilan ChangPotassium [Moles/Vol]4.6 mmol/LNormal3.5-5.1The [facility] HospitalComment on above:Performed By: #### BMP ####[facility] [address] [place], [place] [address]Gk. Yilan ChangSodium [Moles/Vol]139 mmol/JGhqwpx236-828Dph [facility] HospitalComment on above:Performed By: #### BMP ####[facility] [address] [place], [place] [address]Rn.Yilan ChangUrea nitrogen [Mass/Vol]63.0 mg/dL Critically high7.0-18.0The [facility] HospitalComment on above:Performed By: #### BMP ####[facility] [address] [place], [place] [address]Xh. Yilan ChangUrea nitrogen/Creatinine [Mass ratio]42.6 mg/mgNormalThe [facility] HospitalComment on above:Performed By: #### BMP ####[facility] [address] [place], [place] [address]Im.Yilan ChangCT FOOT LT WO CONon 95-23-7999QF FOOT LT WO CONEXAMINATION: CT FOOT LT [...] authenticated by: BLANKA OLGUIN Date: 2023-03-23 14:59[facility], Cancer CenterAlbumin [Mass/volume] in Serum or Plasma by Bromocresol green (BCG) dye binding methoOrdered By: Elpidio Whipple on 36-64-5366Jetaoca BCG dye [Mass/Vol]4.7 g/dL3.5-5.7FThe Surgical Hospital at SouthwoodsAutomated erythrocytes count in urine sediment (number/area)Ordered By: Elpidio Whipple on 03-99-1210RUY Auto (Urine sed) [#/Area]None seen [HPF]0-4FThe Surgical Hospital at Southwoods Automated leukocytes count in urine sediment (number/area)Ordered By: Elpidio Whipple on 64-65-9410SMF Auto (Urine sed) [#/Area]5-9 [HPF]0-4FThe Surgical Hospital at SouthwoodsBilirubin Test strip Ql (U)Ordered By: Elpidio Whipple on 03-06-2023 Bilirubin Ql (U)NegativeNegativeGerman HospitalCalcium [Mass/volume] in Serum or PlasmaOrdered By: Elpidio Whipple on 25-31-7479Jwxlxaw [Mass/Vol]10.2 mg/dL8.6-10.3FThe Surgical Hospital at SouthwoodsCarbon dioxide, total [Moles/volume] in Serum or PlasmaOrdered By: Elpidio Whipple on 92-17-0445ZK3 [Moles/Vol]28.4 mmol/L21.0-31.0German HospitalChloride [Moles/volume] in Serum or PlasmaOrdered By: Elpidio Whipple on 66-74-2480Gqsirvha [Moles/Vol]104 mmol/Q28-246GaetqqtqhGerman HospitalColor Auto (U) Ordered By: Elpidio Whipple on 00-47-4592Svkuy (U)Dark yellowYellowGerman HospitalCreatinine [Mass/volume] in Serum or PlasmaOrdered By: Elpidio Whipple on 61-81-7545Ohpdassfwn [Mass/Vol]1.22 mg/dL0.60-1.20German HospitalCreatinine [Mass/volume] in UrineOrdered By: Elpidio Whipple on 64-94-9527Dqekknagtj (U) [Mass/Vol]98.0 mg/dLGerman HospitalComment on above:No reference range establishedErythrocyte distribution width Auto (RBC) [Ratio]Ordered By: Elpidio Whipple on 49-62-7339Diwqqdzjlmo distribution width (RBC) [Ratio]13.8 %11.9-15.3FThe Surgical Hospital at Southwoods Glucose [Mass/volume] in Serum or PlasmaOrdered By: Elpidio Whipple on 03-06-2023 Glucose [Mass/Vol]101 mg/zM34-676UlgvjchhuGerman HospitalComment on above:ADA recommended reference rangeRandom Glucose Reference Range is dependent on time and content of last meal. Glucose of more than 200 mg/dL in a nonstressed, ambulatory subject supports the diagnosisof Diabetes Mellitus. Hematocrit Auto (Bld) [Volume fraction]Ordered By: Elpidio Whipple on 03-06-2023 Hematocrit (Bld) [Volume fraction]38.1 %34.0-46.4FThe Surgical Hospital at SouthwoodsHemoglobin [Mass/volume] in BloodOrdered By: Elpidio Whipple on 03-06-2023 Hemoglobin (Bld) [Mass/Vol]12.7 g/dL11.8-15.4FThe Surgical Hospital at Southwoods Ketones Auto test strip (U) [Mass/Vol]Ordered By: Elpidio Whipple on 03-06-2023 Ketones (U) [Mass/Vol]NegativeNegativeGerman Hospital Laboratory - UrinalysisOrdered By: Elpidio Whipple on 31-58-4329Ujeydpm casts LM Ql (Urine sed)0-8 [LPF]0-8German HospitalLeukocytes [#/volume] corrected for nucleated erythrocytes in Blood by Automated counOrdered By: Elpidio Whipple on 41-37-3062ZTZ corrected for nucl RBC Auto (Bld) [#/Vol]5.4 10*3/uL 3.8-11.6FThe Surgical Hospital at SouthwoodsMCH Auto (RBC) [Entitic mass]Ordered By: Elpidio Whipple on 83-14-0681GJL (RBC) [Entitic mass]28.1 pg24.7-34.3FThe Surgical Hospital at SouthwoodsMCHC Auto (RBC) [Mass/Vol]Ordered By: Elpidio Whipple on 37-10-6534SDHQ (RBC) [Mass/Vol]33.3 g/dL32.0-35.0German HospitalMCV Auto (RBC) [Entitic vol]Ordered By: Elpidio Whipple on 92-88-5687RDH (RBC) [Entitic vol]84.5 zI43-601IvwsottqlGerman HospitalMagnesium [Mass/volume] in Serum or PlasmaOrdered By: Elpidio Whipple on 62-23-8113Iumnsjiye [Mass/Vol]1.5 mg/dL1.9-2.7FThe Surgical Hospital at SouthwoodsNitrite Test strip Ql (U)Ordered By: Elpidio Whipple on 36-49-3909Dhpmxbu Ql (U)NegativeNegativeGerman HospitalNo Panel InformationOrdered By: Elpidio Whipple on 11-21-5407Pfqqkmkfy GFR (CKD-EPI)50.176 mL/MinGerman Hospital Pharmacy Creatinine Clearance (ChemN/[facility] Parathyrin.intact [Mass/volume] in Serum or PlasmaOrdered By: Elpidio Whipple on 01-65-5370Imolszpvaq.intact [Mass/Vol]43.8 pg/vY20-91OzledrwebGerman HospitalPhosphate [Mass/volume] in Serum or PlasmaOrdered By: Elpidio Whipple on 64-89-7307Yoiigaghp [Mass/Vol]4.3 mg/dL3.7-7.2FThe Surgical Hospital at Southwoods Platelet mean volume Auto (Bld) [Entitic vol]Ordered By: Elpidio Whipple on 08-71-6851Musrztvq mean volume (Bld) [Entitic vol]8.7 fL6.3-10.7FThe Surgical Hospital at SouthwoodsPlatelets Auto (Bld) [#/Vol]Ordered By: Elpidio Whipple on 58-54-9674Astcgomud (Bld) [#/Vol]191 10*3/aS119-011XnphucaaqGerman HospitalPotassium [Moles/volume] in Serum or PlasmaOrdered By: Elpidio Whipple on 98-62-6753Wfkuxvpfe [Moles/Vol]4.0 mmol/L3.5-5.1FThe Surgical Hospital at SouthwoodsProtein Auto test strip (U) [Mass/Vol]Ordered By: Elpidio Whipple on 57-22-5271Jyesikh (U) [Mass/Vol]NegativeNegativeGerman HospitalProtein [Mass/volume] in UrineOrdered By: Elpidio Whipple on 51-60-6048Floknfg (U) [Mass/Vol]8 mg/dL0-9German HospitalRBC Auto (Bld) [#/Vol] Ordered By: Elpidio Whipple on 54-97-6302JRV (Bld) [#/Vol]4.51 10*6/uL3.60-5.00 [facility] Medical Centererum or plasma anion gap determinationOrdered By: Elpiido Whipple on 70-06-1080Eazri gap [Moles/Vol]12.6 mmol/L6.0-15.0[facility] Medical Centerodium [Moles/volume] in Serum or PlasmaOrdered By: Elpidio Whipple on 02-98-6841Dklblc [Moles/Vol]141 mmol/W981-905ArtjqnaljUniversity Hospitals Geauga Medical Centerpecific gravity Auto test strip (U) [Rel density]Ordered By: Elpidio Whipple on 50-75-0693Ncelqmjs gravity (U) [Rel density]1.0171.001-1.030 [facility] Medical Centerquamous epithelial cells detection in urine sediment by light microscopyOrdered By: Elpidio Whipple on 80-71-1015Rzftfzeymf cells.squamous LM Ql (Urine sed)5-9 [HPF]0-2FThe Surgical Hospital at Southwoods Urate [Mass/volume] in Serum or PlasmaOrdered By: Elpidio Whipple on 79-05-9866Wzcnp [Mass/Vol]6.7 mg/dL2.3-6.6FThe Surgical Hospital at SouthwoodsUrea nitrogen [Mass/volume] in Serum or PlasmaOrdered By: Elpidio Whipple on 66-44-2006Ohtp nitrogen [Mass/Vol]37 mg/dL7-25German HospitalUrine bacteria detection by automated methodOrdered By: Elpidio Silvadir on 95-50-4694Dmqjljqa Auto Ql (U)None seenNone SeenGerman HospitalUrine clarity by refractometry automatedOrdered By: Elpidio Sole on 16-94-0841Obpguvi Refractometry automated (U)ClearClearFThe Surgical Hospital at SouthwoodsUrine culture routineOrdered By: Elpidio Silvadir on 94-51-4544Ojjxvpvu identified Cx Nom (U)2 DaysGerman HospitalUrine glucose measurement by automated test strip (mass/volume)Ordered By: Elpidio Silvadir on 41-76-3177Gywlhcy Auto test strip (U) [Mass/Vol]Normal mg/dLNoAccess Hospital DaytonUrine hemoglobin detection by automated test stripOrdered By: Elpidio Silvadir on 34-96-3872Xzipaxpfoi Auto test strip Ql (U)NegativeNegativeGerman HospitalUrine leukocyte esterase detection by automated test stripOrdered By: Elpidio Silvadir on 56-74-5729Pecpaacpz esterase Auto test strip Ql (U)2+Negative German HospitalUrine protein/creatinine ratioOrdered By: Elpidio Sole on 90-53-6897Ybsbxyk/Creatinine (U) [Ratio]82 mg/g{Cre}0-200German HospitalUrobilinogen Auto test strip (U) [Mass/Vol]Ordered By: Elpidio Sole on 67-51-4111Mepticlxvfmg (U) [Mass/Vol]Normal mg/dLNoAccess Hospital DaytonVitamin D+Metabolites [Mass/volume] in Serum or Plasma Ordered By: Elpidio Sole on 20-94-8996Rgnwpfl D+Metabolites [Mass/Vol]46.0 ng/mL 30-100German HospitalComment on above:VITAMIN D STATUS 25(OH)VITAMIN D RANGE (ng/mL) Deficient <20 Insufficient 20 to <89Nslxnmpahj95 to 100Reference: Nayeli MF,Hannah NC, Jose GILBERT, et al. Evaluation,treatment, and prevention of vitamin D deficiency; an Endocrine Society clinical practice guideline. JCEM. 2010; 96(7):1911-30.pH Auto test strip (U)Ordered By: Elpidio Whipple on 62-71-6667hP (U)5.5 [pH]5.0-9.0German HospitalXR FOOT LAURA MIN 3 VIEWSon 63-53-2089VV FOOT LAURA MIN 3 VIEWSEXAMINATION: XR FOOT [...] Date: 2023-02-17 14:34NormalThSelect Medical Specialty Hospital - ColumbusCB AUTO DIFFon 72-09-9423IEJO #0.0 103/ulNormal0.0-0.1Bu[facility] Community HospitalComment on above:Performed By: #### CBC #### [facility] [address] [address] [address] Tere Naranjosophils/100 WBC (Bld)0.6 %Normal0.2-2.0[facility] Comment on above:Performed By: #### CBC #### [facility] [address] [address] [address] Tere Barksdale #0.1 103/ulNormal0.0-0.7The [facility] HospitalComment on above: Performed By: #### CBC #### [facility] [address] [address] [address] Tere Mendezosinophils/100 WBC (Bld)2.9 %Normal0.9-7.0The [facility] Comment on above:Performed By: #### CBC #### [facility] [address] [place] [address] Dr. Tere Mendezrythrocyte distribution width (RBC) [Ratio]13.2 %Hndxxd82.0-15.0 The [facility] HospitalComment on above:Performed By: #### CBC #### [facility] [address] [place] [address] Dr. Tere SotoHematocrit (Bld) [Volume fraction]39.0 %Dsbgzn55.0-48.0The [facility] HospitalComment on above:Performed By: #### CBC #### [facility] [address] [place] [address] Dr. Tere SotoHemoglobin (Bld) [Mass/Vol]13.0 g/rFNnppmx78.0-16.0The [facility] Memorial Hospitalment on above:Performed By: #### CBC #### [facility] [address] [place] [address] Dr. Tere Carolina #0.01 10e3/ulNormal0.00-0.03The [facility] Memorial Hospitalment on above:Performed By: #### CBC #### [facility] [address] [place] [address] Dr. Tere Carolina %0.2 %Normal0.0-0.5The [facility] Memorial Hospitalment on above: Performed By: #### CBC #### [facility] [address] [place] [address] Dr. Tere Salguero #2.1 103/ulNormal1.2-3.8The [facility] on above:Performed By: #### CBC #### [facility] [address] [place] [address] Dr. Tere Escamillamphocytes/100 WBC (Bld)42.6 %Qdcvei19.5-60.0The Danese HospitalComment on above:Performed By: #### CBC #### [facility] [address] [address] [address] Tere Mayfield DIFF REQNONormalThe [facility] HospitalComment on above: Performed By: #### CBC #### [facility] [address] [address] [address] Tere Lomeli (RBC) [Entitic mass]28.4 vxTvjaro23.7-34.0The [facility] HospitalComment on above:Performed By: #### CBC #### [facility] [address] [place] [address] Dr. Tere Lomeli (RBC) [Mass/Vol]33.3 g/nBFuyslx29.9-35.2The [facility] HospitalComment on above:Performed By: #### CBC #### [facility] [address] [place] [address] Dr. Tere Lomeli (RBC) [Entitic vol]85.2 aWXtfpmp34.0-99.0The [facility] HospitalComment on above:Performed By: #### CBC #### [facility] [address] [place] [address] Dr. Tere Tsai #0.3 103/ulNormal0.3-0.8The [facility] HospitalComment on above:Performed By: #### CBC #### [facility] [address] [place] [address] Dr. Tere Hillocytes/100 WBC (Bld)6.8 %Normal1.7-12.0The [facility] Comment on above:Performed By: #### CBC #### [facility] [address] [address] [address] Tere Green #2.3 103/ulNormal1.4-6.5The [facility] HospitalComment on above:Performed By: #### CBC #### [facility] [address] [place] [address] Dr. Tere Velezutrophils/100 WBC (Bld)46.9 %Zhndvz53.0-75.0The [facility] HospitalComment on above:Performed By: #### CBC #### [facility] [address] [address] [address] Tere Hernandezlet mean volume (Bld) [Entitic vol]11.3 fLNormal9.5-13.5The [facility] HospitalComment on above:Performed By: #### CBC #### [facility] [address] [place] [address] Dr. Tere SotoPLT183 103/vhSokbpk713-358Xjd [facility] HospitalComment on above: Performed By: #### CBC #### [facility] [address] [place] [address] Dr. Tere SotoRBC4.58 106/ulNormal4.20-5.40The [facility] HospitalComkalkaska memorial health center on above:Performed By: #### CBC #### [facility] [address] [place] [address] Dr. Tere SotoWBC4.8 103/ulNormal4.0-11.0The [facility] HospitalComment on above: Performed By: #### CBC #### [facility] [address] [place] [address] Dr. Tere SotoCovisonia-19 PCR ([facility])on 34-13-1557HNRE-CoV-2 (COVID-19) RNA AHMET+probe Ql (Unsp spec)Not detectedNormalNOT DETECTEDThe [facility] Comment on above:Result Comment: This test is not yet approved or cleared by the [place] FDA. When there are no FDA-approved or cleared tests available, and other criteria are met, FDA can make tests available under an emergency access mechanism called an Emergency Use Authorization (EUA). The EUA for this test is supported by the Family Caseworker of Health and Human Service's (HHS's) declaration [...] consistent with SARS-CoV-2.Performed By: #### CVDTBH #### [facility] [address] [place] [address] Dr. Tere SotoPROF CHEM 8 (BAS METB)on 44-86-3180Ycdfx gap [Moles/Vol]13.6 mmol/LNormalThe [facility] HospitalComment on above:Performed By: #### BMP #### [facility] [address] [place] [address] Dr. Tere SotoCalcium [Mass/Vol]9.6 mg/dLNormal8.5-10.1The [facility] Comment on above:Performed By: #### BMP #### [facility] [address] [place] [address] Dr. Tere SotoChloride [Moles/Vol]103 mmol/FWupxrd91-821Usy [facility] Comment on above:Performed By: #### BMP #### [facility] [address] [place] [address] Dr. Tere SotoCO2 [Moles/Vol]28.9 mmol/ZVborli90.0-32.0[facility] Comment on above:Performed By: #### BMP #### [facility] [address] [place] [address] Dr. Tere SotoCreatinine [Mass/Vol]1.25 mg/dLCritically high0.55-1.02The [facility] HospitalComment on above:Performed By: #### BMP #### [facility] [address] [place] [address] Dr. Tere MendezGFR-AF OLKMOKVH49 mL/min/1.04g3Iphhqxgnzd low>=60The [facility] HospitalComment on above:Performed By: #### BMP #### [facility] [address] [place] [address] Dr. Tere MendezGFR-NON AF OXYKGSGM30 mL/min/1.48m0Hnkgjzwxks low>=60The [facility] HospitalComment on above:Performed By: #### BMP #### [facility] [address] [address] [address] Tere SotoGlucose [Mass/Vol]121 mg/dLCritically aefs52-594Ufx [facility] on above:Performed By: #### BMP #### [facility] [address] [address] [address] Tere SotoPotassium [Moles/Vol]4.5 mmol/LNormal3.5-5.1[facility] Comment on above:Performed By: #### BMP #### [facility] [address] [address] [address] Tere SotoSodium [Moles/Vol]141 mmol/RPdesrv021-820Sdh [facility] Comment on above:Performed By: #### BMP #### [facility] [address] [address] [address] Tere SotoUrea nitrogen [Mass/Vol]43.0 mg/dLCritically high7.0-18.0The [facility] on above:Performed By: #### BMP #### [facility] [address] [address] [address] Tere Cox nitrogen/Creatinine [Mass ratio]34.4 mg/mgNoRiverside Methodist HospitalComment on above:Performed By: #### BMP #### [facility] [address] [address] [address] Tere SotoPROTIMEmarisela 45-66-1272FKN Coag (PPP) [Relative time]{INR}NormalThe [facility] on above:Performed By: #### PT, PTT ####[facility] [address] [address]Dr. Tere Seaman GUIDELINESSEE Sheltering Arms HospitalComkalkaska memorial health center on above:Result Comment: DESIRED INR: 2.0 - 3.0 CONDITIONS NOT LISTED BELOW 2.5 - 3.5 FOR PROSTHETIC HEART VALVE REPLACEMENT 2.5 - 3.5 RECURRENT THROMBOSISPerformed By: #### PT, PTT ####[facility] [address] [id number]. Tere SotoPT Coag (PPP) [Time]9.8 sNormal9.0-11.6The [facility] HospitalComment on above:Performed By: #### PT, PTT ####[facility] [address] [place], [place] [address]Od. Tere SotoPTTon 14-92-6087gBCH Coag (Bld) [Time]26.5 pBanqco52.3-36.2[facility] HospitalComment on above:Performed By: #### PT, PTT ####[facility] [address] [place], [place] [address]Ax. Tere SotoCT FOOT LT WO CONon 86-40-9942MP FOOT LT WO CONEXAMINATION: CT FOOT LT [...] Electronically authenticated by: BRODERICK FLOR Date: 2022-11-26 16:36NoRiverside Methodist HospitalXR ANKLE LAURA MIN 3 VIEWSon 84-64-9761UN ANKLE LAURA MIN 3 VIEWS EXAMINATION: XR [...] Electronically authenticated by: BLANKA OLGUIN Date: 2022-11-13 06:[address] [place] [address] Visit (Cardiology)on 35-76-3783Xsxxco-up visit Diagnoses/Problems Assessed CAD (coronary artery disease) (414.00) (I25.10) Essential hypertension (401.9) (I10) Hyperlipidemia (272.4) (E78.5) 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 (V45.82) (Z95.5) LAD February 2022 Diabetes mellitus (250.00) (E11.9) Obstructive sleep apnea syndrome (327.23) (G47.33) Never a smoker Class 2 obesity with body mass index (BMI) of 36.0 to 36.9 in adult (278.00,V85.36) (E66.9,Z68.36) Qqbcxbt-Ycycz-Mepqx disease (356.1) (G60.0) Orders CAD (coronary artery [...] Weight Tips; Status:Complete - Retrospective Authorization; Done: [id number] Some eating tips that can help you lose weight.; Status:Complete - Retrospective Authorization; Done: [id number] SocHx: Never a smoker Tobacco Use Screening; Status:Complete; Done: [id number] Patient Instructions Please bring all medicines, vitamins, [...] Since her last visit she has developed Jhrlmyq-Sxrkz-Ulqhg joint in the left foot and is planning surgery next month. Cardiac wiseshe has remained symptoms free. Recent lab data were reviewed from July 2022. LDL remains bhtb280 mg/dL. She has been only on Lovaza [...] machine patient has been compliant with it. 7?Nalvnad-Ivzsl-Sbplz joint in the left ankle and need [...] content not included)...NormalUH Touchworks Culture, MRSA Screenon 15-48-9348Tditasa, MRSA ScreenCulture, MRSA Screen-: Methicillin resistant Staph aureus not isolatedNormalSMiraVista Behavioral Health CenterHgb A1Con 99-97-4672QbO7f (Bld) [Mass fraction]7.1 %High4.0-5.6SaRobert Breck Brigham Hospital for Incurablesedimentation Rateon 39-64-5404Iloohonwagmei Rate44 mm/Hr High0-20SMiraVista Behavioral Health CenterC-Reactive Proteinon 05-28-5298F-Reactive Protein0.4 mg/dLNormal0.0-0.4SMiraVista Behavioral Health CenterCBC With Platelet and Differentialon 26-80-8822Bqr Imm Granulocytes0.01 E9/LNormalPenikese Island Leper HospitalAbsolute Basophils0.05 E9/LNormal0.00-0.20SMiraVista Behavioral Health CenterAbsolute Eosinophils0.15 E9/LNormal0.05-0.50[facility] Absolute Lymphocytes2.20 E9/LNormal1.50-4.00[facility] Absolute Monocytes0.35 E9/LNormal0.10-0.95[facility] HospitalAbsolute Neutrophils1.88 E9/LNormal1.80-7.30SMiraVista Behavioral Health CenterBasophils/100 WBC (Bld)1.1 %Normal0.0-2.0[facility]per HospitalEosinophils/100 WBC (Bld)3.2 %Normal0.0-6.0[facility]per HospitalHematocrit (Bld) [Volume fraction]36.9 %Aczuax94.0-48.0[facility] HospitalHemoglobin (Bld) [Mass/Vol]12.4 g/jAIuaanh82.5-15.5SMiraVista Behavioral Health CenterImm Granulocytes 0.2 %Normal0.0-5.0[facility] Leper HospitalLymphocytes/100 WBC (Bld)47.4 % High20.0-42.0[facility] Leper HospitalMCH (RBC) [Entitic mass]29.7 pgNormal 26.0-35.0[facility]per HospitalMCHC33.6 %Mbqklp15.0-34.5SMiraVista Behavioral Health CenterMCV (RBC) [Entitic vol]88.3 qGLzdfxo95.0-99.9[facility]per HospitalMonocytes/100 WBC (Bld)7.5 %Normal2.0-12.0[facility] Neutrophils/100 WBC (Bld)40.6 %Low43.0-80.0[facility]per HospitalPlatelet Gkeia521 E9/AMxvlty666-025QwvjbPenikese Island Leper HospitalPlatelet mean volume (Bld) [Entitic vol]11.7 fLNormal7.0-12.0[facility]per HospitalRBC4.18 E12/LNormal3.50-5.50[facility] HospitalRDW13.3 tOWmrrxr54.5-15.0[facility] HospitalWBC4.6 E9/LNormal4.5-11.5SM[facility] Comprehensive Metabolic Panelon 44-25-0773Iocldte [Mass/Vol]4.3 g/dLNormal 3.5-5.2SMiraVista Behavioral Health CenterALP [Catalytic activity/Vol]71 U/LNormal 35-104Pen[facility] Island Leper HospitalALT [Catalytic activity/Vol]12 U/LNormal0-32 [facility] HospitalAnion gap [Moles/Vol]10 mmol/LNormal7-16SMiraVista Behavioral Health CenterAST [Catalytic activity/Vol]19 U/LNormal0-31[facility] Leper HospitalBilirubin [Mass/Vol]0.3 mg/dLNormal0.0-1.2SMiraVista Behavioral Health CenterCalcium [Mass/Vol]10.3 mg/dLHigh8.6-10.2SMiraVista Behavioral Health CenterChloride [Moles/Vol]103 mmol/MRatddo21-250RcsgkPenikese Island Leper HospitalCO2 [Moles/Vol]27 mmol/XZqpgux67-11KdinaPenikese Island Leper HospitalCreatinine [Mass/Vol]1.2 mg/dLHigh0.5-1.0[facility]per HospitalGFR/1.73 sq M.predicted among non-blacks MDRD (S/P/Bld) [Vol rate/Area]51 mL/min/{1.73_m2} Normal>=60Penik[facility] Island Leper HospitalComment on above:Result Comment: Pediatric calculator link [...] that affects renal tubular secretion.Glucose [Mass/Vol]111 mg/dLHigh 74-99[facility]per HospitalPotassium [Moles/Vol]4.6 mmol/LNormal3.5-5.0 [facility] HospitalProtein [Mass/Vol]7.3 g/dLNormal6.4-8.3SVibra Hospital of Southeastern Massachusettsodium [Moles/Vol]140 mmol/TFlaskv253-758OlxvdPenikese Island Leper HospitalUrea nitrogen [Mass/Vol]30 mg/dLHigh6-23[facility]per HospitalAlbumin [Mass/volume] in Serum or PlasmaOrdered By: Charan Casey on 94-76-5319Nnxxdoq [Mass/Vol]3.9 g/dL3.2-5.5FThe [facility] Hospital [facility]woods Automated erythrocytes count in urine sediment (number/area)Ordered By: Elpidio Whipple on 07-81-9076DQS Auto (Urine sed) [#/Area]0-1 [HPF]0-4FThe Surgical Hospital at SouthwoodsAutomated leukocytes count in urine sediment (number/area)Ordered By: Elpidio Whipple on 61-90-9936PBG Auto (Urine sed) [#/Area]None seen [HPF]0-4 [facility] HospitalBasophils Auto (Bld) [#/Vol]Ordered By: Charan Casey on 13-73-4871Bmrbhvhev (Bld) [#/Vol]0.1 10*3/uL0.0-0.2FThe Surgical Hospital at SouthwoodsBasophils/100 WBC Auto (Bld)Ordered By: Charan Casey on 08-13-2022 Basophils/100 WBC (Bld)1.0 %.German HospitalBilirubin Test strip Ql (U)Ordered By: Elpidio Whipple on 95-26-6268Keczaiiir Ql (U)Negative NegativeGerman HospitalCholesterol [Mass/volume] in Serum or PlasmaOrdered By: Charan Casey on 92-24-8922Toxnyfwdftc [Mass/Vol]170 mg/tC619-306 [facility] HospitalComment on above:Chol less than 200 mg/dl low riskChol 201-239 mg/dl borderline riskChol 240 mg/dl and greater high risk Cholesterol in LDL Calc [Mass/Vol]Ordered By: Charan Casey on 08-13-2022 Cholesterol in LDL [Mass/Vol]101 mg/dL0-100[facility] Comment on above:LDL ATP III CLASSIFICATIONLDL less than 100 mg/dL OptimalLDL 100-129 mg/dL Near or above hhyxpgmZAR567-105 mg/dL Borderline highLDL 160-189 mg/dL HighLDL greater than 189 mg/dL Very highCholesterol in VLDL Calc [Mass/Vol]Ordered By: Charan Casey on 79-69-0783Jjrswluvgac in VLDL [Mass/Vol]41 mg/dLGerman HospitalColor Auto (U)Ordered By: Elpidio Whipple on 02-67-4735Exmty (U)Dark yellowYellowGerman HospitalCreatinine [Mass/volume] in UrineOrdered By: Elpidio Whipple on 52-41-2529Mwrptspxcf (U) [Mass/Vol]127.6 mg/dLGerman HospitalComment on above:No reference range establishedCreatinine and Glomerular filtration rate.predicted panel (S/P/Bld)Ordered By: Charan Casey on 49-43-1147Prfmlvzhmd [Mass/Vol]1.41 mg/dL0.44-1.03German HospitalEosinophils Auto (Bld) [#/Vol] Ordered By: Charan Casey on 30-00-9547Hhuzxvfnwgo (Bld) [#/Vol]0.1 10*3/uL0.0-0.45 [facility] HospitalEosinophils/100 WBC Auto (Bld)Ordered By: Charan Casey on 92-26-3856Bqpxkslrtdj/100 WBC (Bld)1.7 %.German HospitalErythrocyte distribution width Auto (RBC) [Ratio]Ordered By: Charan Casey on 13-57-8700Zvkokdpghno distribution width (RBC) [Ratio]13.1 %11.9-15.3FThe Surgical Hospital at SouthwoodsEstimated glomerular filtration rate (GFR) non- AmericanOrdered By: Charan Casey on 32-51-9280LXE/1.73 sq M.predicted among non- blacks MDRD (S/P/Bld) [Vol rate/Area]38 mL/MinGerman Hospital Globulin Calc (S) [Mass/Vol]Ordered By: Charan Casey on 40-42-1030Fusjwrdb (S) [Mass/Vol]3.1 g/dLGerman HospitalHematocrit Auto (Bld) [Volume fraction]Ordered By: Charan Casey on 58-36-0902Jjakmygkup (Bld) [Volume fraction] 38.0 %34.0-46.4FThe Surgical Hospital at SouthwoodsHemoglobin [Mass/volume] in BloodOrdered By: Charan Casey on 23-46-0968Bhunrsjuli (Bld) [Mass/Vol]12.6 g/dL 11.8-15.4FThe Surgical Hospital at SouthwoodsKetones Auto test strip (U) [Mass/Vol] Ordered By: Elpidio Whipple on 54-92-7933Hfcvtwm (U) [Mass/Vol]NegativeNegative German HospitalLaboratory - Chemistry and Chemistry - challengeOrdered By: Elpidio Whipple on 62-36-1381Obrzzwyiz [Mass/Vol]1.9 mg/dL 1.6-2.6FThe Surgical Hospital at SouthwoodsLaboratory - Hematology and Cell counts Ordered By: Charan Casey on 83-76-7093Dbbxkaheb RBC/100 WBC (Bld) [Ratio]0.0 % 0-0.5FThe Surgical Hospital at SouthwoodsLaboratory - UrinalysisOrdered By: Elpidio Whipple on 30-12-7898Nfpqjus casts LM Ql (Urine sed)0-8 [LPF]0-8German HospitalLeukocytes [#/volume] in Blood by Automated countOrdered By: Charan Casey on 19-97-9494UYZ (Bld) [#/Vol]8.2 10*3/uL4.5-11.0German HospitalLymphocytes Auto (Bld) [#/Vol]Ordered By: Charan Casey on 08-13-2022 Lymphocytes (Bld) [#/Vol]2.8 10*3/uL1.00-4.8[facility] Lymphocytes/100 WBC Auto (Bld)Ordered By: Charan Casey on 08-13-2022 Lymphocytes/100 WBC (Bld)34.1 %.[facility] HospitalH Auto (RBC) [Entitic mass]Ordered By: Charan Casey on 80-11-8191VCK (RBC) [Entitic mass]28.5 pg24.7-34.3FMercy Health St. Anne HospitalHC Auto (RBC) [Mass/Vol]Ordered By: Charan Casey on 24-62-8753BPHQ (RBC) [Mass/Vol]33.2 g/dL32.0-35.0German HospitalMCV Auto (RBC) [Entitic vol]Ordered By: Charan Casey on 45-17-2395EAK (RBC) [Entitic vol]85.8 fM37-024FkusigihjGerman Hospital Monocytes Auto (Bld) [#/Vol]Ordered By: Charan Casey on 75-59-3472Sapjzfccu (Bld) [#/Vol]0.5 10*3/uL0.0-0.8German HospitalMonocytes/100 WBC Auto (Bld)Ordered By: Charan Casey on 22-60-6608Lfpzirgkn/100 WBC (Bld)6.4 %.German HospitalNeutrophils Auto (Bld) [#/Vol]Ordered By: Charan Casey on 27-57-6706Arbvyljicnv (Bld) [#/Vol]4.7 10*3/uL1.8-7.7FThe Surgical Hospital at SouthwoodsNeutrophils/100 WBC Auto (Bld)Ordered By: Charan Casey on 08-13-2022 Neutrophils/100 WBC (Bld)56.8 %.German HospitalNitrite Test strip Ql (U)Ordered By: Elpidio Whipple on 27-82-5655Wqsuvec Ql (U)NegativeNegative [facility] HospitalNo Panel InformationOrdered By: Charan Casey on 51-54-580681003627-Wtfayqh Vitamin D Total37.8 ng/pH73-303FqgamzjrgGerman HospitalComment on above:VITAMIN D STATUS 25(OH)VITAMIN D RANGE (ng/mL) Deficient <20 Insufficient 20 to <80Axwnjkbdtm00 to 100Reference: Nayeli MF,Hannah SCHREIBER, Jose GILBERT, et al. Evaluation,treatment, and prevention of vitamin D deficiency; an Endocrine Society clinical practice guideline. JCEM. 2010; 96 (7):1911-30.Estimated GFR ()46 mL/MinGerman HospitalComment on above:GFR estimated reference range: According to KDOQI guidelines, <60 ml/min/1.73m2 is sufficient todiagnose a patient with chronic kidney disease.Pharmacy Creatinine Clearance (ChemN/[facility] HospitalPlatelet mean volume Auto (Bld) [Entitic vol]Ordered By: Charan Casey on 90-82-4582Yzxwmzqj mean volume (Bld) [Entitic vol]9.2 fL6.3-10.7FThe Surgical Hospital at SouthwoodsPlatelets Auto (Bld) [#/Vol]Ordered By: Charan Casey on 31-37-8196Dhypyerqw (Bld) [#/Vol]272 10*3/bK737-244DudaqpvkyGerman HospitalProtein Auto test strip (U) [Mass/Vol]Ordered By: Elpidio Whipple on 36-28-6372Ilixanb (U) [Mass/Vol]NegativeNegativeGerman HospitalProtein [Mass/volume] in Serum or PlasmaOrdered By: Charan Casey on 76-31-8613Ldmspzq [Mass/Vol]7.0 g/dL6.1-7.9[facility] Protein [Mass/volume] in UrineOrdered By: Elpidio Whipple on 12-91-3255Otouoji (U) [Mass/Vol]7 mg/dL0-9German HospitalRBC Auto (Bld) [#/Vol] Ordered By: Charan Casey on 79-55-6938ZLZ (Bld) [#/Vol]4.43 10*6/uL3.60-5.00 [facility] Medical Centererum or plasma alanine aminotransferase measurement without P-5'-P (enzymatic activiOrdered By: Charan Casey on 08-13-2022 ALT No additional P-5'-P [Catalytic activity/Vol]12 U/E38-11HgwnvmvdxUniversity Hospitals Geauga Medical Centererum or plasma albumin/globulin mass ratioOrdered By: Charan Casye on 23-85-1809Kptnbpc/Globulin [Mass ratio]1.3 {ratio}[facility] Centererum or plasma alkaline phosphatase measurement (enzymatic activity/volume)Ordered By: Charan Casey on 89-56-2872GCB [Catalytic activity/Vol] 79 U/W19-06RjcesvmvnUniversity Hospitals Geauga Medical Centererum or plasma anion gap determinationOrdered By: Charan Casey on 03-49-7510Vpuiz gap [Moles/Vol]15.4 mmol/L6.0-15.0[facility] Centererum or plasma aspartate aminotransferase measurement (enzymatic activity/volume)Ordered By: Charan Casey on 67-30-9638HRR [Catalytic activity/Vol]22 U/P42-75SwbzorwezUniversity Hospitals Geauga Medical Centererum or plasma calcium measurement (mass/volume)Ordered By: Charan Casey on 26-10-3197Yjezofo [Mass/Vol]10.1 mg/dL8.2-10.2FThe Surgical Hospital at Southwoods Serum or plasma chloride measurement (moles/volume)Ordered By: Charan Casey on 04-29-5751Keafaliw [Moles/Vol]102 mmol/X55-845QiqhxzwwtGerman Hospital Serum or plasma glucose measurement (mass/volume)Ordered By: Charan Casey on 97-30-4366Rsohsvu [Mass/Vol]114 mg/fZ12-152WcjkjcmtvGerman Hospital Comment on above:ADA recommended reference rangeRandom Glucose Reference Range is dependent on time and content of last meal. Glucose of more than 200 mg/dL in a nonstressed, ambulatory subject supports the diagnosisof Diabetes Mellitus. Serum or plasma high density lipoprotein (HDL) cholesterol measurementOrdered By: Charan Casey on 66-65-3432Rrbsqxevmqk in HDL [Mass/Vol]28 mg/aM24-66MiellftsqGerman HospitalComment on above:HDL CHOL ATP-III CLASSIFICATION Cardiovascular RiskHDL > or equal to 60 mg/dL LOWHDL < 40 mg/dL HIGHSerum or plasma intact parathyroid hormone measurement (mass/volume)Ordered By: Elpidio Whipple on 67-69-5024Ytfmjlacuq.intact [Mass/Vol]87.0 pg/mJ71-11JhpxneqrqUniversity Hospitals Geauga Medical Centererum or plasma potassium measurement (moles/volume)Ordered By: Charan Casey on 61-46-2362Hqnetyuvr [Moles/Vol]4.9 mmol/L3.5-5.1FTwin City Hospitalerum or plasma sodium measurement (moles/volume)Ordered By: Charan Casey on 07-42-6904Kobxml [Moles/Vol]138 mmol/Y822-028RvfjlesuvUniversity Hospitals Geauga Medical Centererum or plasma total bilirubin measurement (mass/volume)Ordered By: Charan Casey on 92-65-9688Qpitmbqow [Mass/Vol]0.4 mg/dL0.3-1.2FTwin City Hospitalerum or plasma total carbon dioxide measurement (moles/volume)Ordered By: Charan Casey on 06-02-9294XH9 [Moles/Vol]25.5 mmol/L 22.0-30.0[facility] Centererum or plasma total cholesterol/high density lipoprotein (HDL) cholesterol mass ratOrdered By: Charan Casey on 40-31-9441Rtfxabufanz.total/Cholesterol in HDL [Mass ratio]6.1 {ratio}<5.0 [facility] Centererum or plasma urea nitrogen measurement (mass/volume)Ordered By: Charan Casey on 34-93-0975Klpr nitrogen [Mass/Vol]45 mg/dL9-23[facility] Centererum or plasma uric acid measurement (mass/volume)Ordered By: Charan Casey on 12-55-6858Brcrp [Mass/Vol]7.9 mg/dL 2.6-7.2FTwin City Hospitalpecific gravity Auto test strip (U) [Rel density]Ordered By: Elpidio Whipple on 12-52-4121Lhgabibx gravity (U) [Rel density]1.0201.001-1.030[facility] Medical Centerquamous epithelial cells detection in urine sediment by light microscopyOrdered By: Elpidio Whipple on 44-00-5923Midgqdxslq cells.squamous LM Ql (Urine sed)0-1 [HPF]0-2FThe Surgical Hospital at SouthwoodsTS DL <= 0.005 mIU/L QnOrdered By: Charan Casey on 08-38-6609TSU Qn1.91 m[IU]/L0.45-5.33[facility] Triglyceride [Mass/volume] in Serum or PlasmaOrdered By: Charan Casey on 35-32-6434Fwlnwepcpupb [Mass/Vol]207 mg/qB06-404DqbucnigqGerman HospitalComment on above:TRIG ATP III CLASSIFICATIONTRIG less than 150 mg/dL NormalTRIG 150-199 mg/dL Borderline highTRIG 200-500 mg/dL High TRIG greater than 500 mg/dL Very highStandard traceable to the Center for Disease Conrtrol and Prevention (CDC) test method.Urine bacteria detection by automated method Ordered By: Elpidio Whipple on 83-43-2949Isquxjce Auto Ql (U)None seenNone Seen German HospitalUrine clarity by refractometry automatedOrdered By: Elpidio Whipple on 05-53-3795Blbsugg Refractometry automated (U)ClearClear German HospitalUrine glucose measurement by automated test strip (mass/volume)Ordered By: Elpidio Whipple on 30-23-3158Hnliolo Auto test strip (U) [Mass/Vol]Normal mg/dLNormalGerman HospitalUrine hemoglobin detection by automated test stripOrdered By: Elpidio Whipple on 88-84-3861Igddaugmfx Auto test strip Ql (U)NegativeNegativeGerman HospitalUrine leukocyte esterase detection by automated test stripOrdered By: Elpidio Whipple on 38-11-4866Axfdgqcwk esterase Auto test strip Ql (U)Negative NegativeGerman HospitalUrine protein/creatinine ratioOrdered By: Elpidio Whipple on 57-29-7234Ynuvvth/Creatinine (U) [Ratio]55 mg/g{Cre}0-200 German HospitalUrobilinogen Auto test strip (U) [Mass/Vol] Ordered By: Elpidio Whipple on 78-80-3200Xovthatqbplv (U) [Mass/Vol]Normal mg/dL NormalGerman HospitalpH Auto test strip (U)Ordered By: Elpidio Whipple on 99-63-5287sT (U)5.0 [pH]5.0-9.0German HospitalTobacco Screening.on 86-92-0427Uxzxq depression screening assessmentNo-[facility] 250 DO Work Phone: Fall risk assessmenta) No falls within the last year MP-[facility] 250 DO Work Phone: Tobacco use status CPHSb) NoMP-[facility] [place] 250 DO Work Phone: Laboratory - Chemistry and Chemistry - challengeon 71-18-6063Gxgfgbzcbzn [Mass/Vol]218\S\218above high itmepwskh979-704NE-Avkki [place] [facility] 250 DO Work Phone: Comment on above:Chol less than 200 mg/dl low risk Chol 201-239 mg/dl borderline risk Chol 240 mg/dl and greater high risk Cholesterol in LDL [Mass/Vol]145\S\145above high agveabuzd2-170YU-Lexqj [place] [facility] 250 DO Work Phone: Comment on above:LDL ATP III CLASSIFICATION LDL less than 100 mg/dL Optimal LDL 100-129 mg/dL Near or above optimal LDL 130-159 mg/dL Borderline high LDL 160-189 mg/dL High LDL greater than 189 mg/dL Very high Laboratory - Microbiology and Antimicrobial susceptibilityon 03-25-2022 SARS-CoV-2 (COVID-19) RNA AHMET+probe Ql (Unsp spec)-[facility] 250 DO Work Phone: No Panel Informationon .2\S\40.2Normal.- [facility]-[place] 250 DO Work Phone: [phone]\S\9.9Fcrgvs4.3-10.7MP-[facility]-[place] 250 DO Work Phone: [phone]\S\739Vdlitm054-537DP-Hrxdw [facility] 250 DO Work Phone: [phone]\S\13.0Gcivzv12.9-15.3MP-[facility] 250 DO Work Phone: [phone]\S\34.5Ilsdeh87.0-35.0MP-[facility]-[place] 250 DO Work Phone: [phone]\S\29.0Mbnuqc42.7-34.3MP-[facility] 250 DO Work Phone: [phone]\S\2.7Luduwe0.8-7.7MP-[facility] 250 DO Work Phone: [phone]\S\0.5Pjeanr8.0-0.45MP-[facility] 250 DO Work Phone: [phone]\S\0.6Normal.MP-[facility] 250 DO Work Phone: [phone]\S\2.9Normal.MP-[facility] 250 DO Work Phone: [phone]\S\7.1Normal.-[facility] 250 DO Work Phone: [phone]\S\49.2Normal.MP-[facility] 250 DO Work Phone: [phone]\S\0.5Ncqair0.0-0.2MP-[facility] 250 DO Work Phone: [phone] on above:PERFORMED BY:[facility] [place], [place] [phone] MEDICAL DIRECTORJE SHELLEY M.D.0.4\S\0.8Xsiari3.0-0.8MP-[facility] 250 DO Work Phone: [phone]\S\2.9Kgzegj0.00-4.8MP-[facility] 250 DO Work Phone: [phone]\S\85.1Izazpk30-870VY-Bhrdi [place] [facility] 250 DO Work Phone: [phone]\S\39.5Bfanud01.0-46.4MP-[facility] 250 DO Work Phone: [phone]\S\13.8Vhoqmj45.8-15.4MP-[facility] 250 DO Work Phone: [phone]\S\4.69Dkicrd7.60-5.00MP-[facility] 250 DO Work Phone: [phone]\S\5.7Ptnbnb3.8-11.6MP-[facility] 250 DO Work Phone: [phone]\S\33.3Hywtvm18.1-36.5MP-[facility] 250 DO Work Phone: Comment on above:PERFORMED BY:[place] [address] [place], [place] [phone] MEDICAL DIRECTORJE SHELLEY M.D.1.0\S\1.0NormalMP-[facility] 250 DO Work Phone: Comment on above:INR [...] patients with mechanical heart valves: 3 - 4.510.9\S\10.3Iqyish3.0-12.9MP-[facility] 250 DO Work Phone: [phone]\S\26.0Owegtr89.0-30.0MP-[facility] 250 DO Work Phone: [phone]\S\614Hvetlc19-081CJ-Sbokd [place] [facility] 250 DO Work Phone: [phone]\S\4.6Auvsbe2.5-5.1MP-[facility] 250 DO Work Phone: [phone]\S\044Mbswpa482-466BO-Ptopr [facility] 250 DO Work Phone: [phone]\S\65Mjpqct6-30PS-Oyewf [facility] 250 DO Work Phone: [phone]\S\54NormalMP-[facility] 250 DO Work Phone: Comment on above:GFR estimated reference range: According to KDOQI guidelines, <60 ml/min/1.73m2 is sufficient todiagnose a patient with chronic kidney disease.45\S\45NormalMP-[facility] 250 DO Work Phone: [phone]\S\1.22above high threshold0.44-1.03MP-[facility] 250 DO Work Phone: [phone]\S\6.4Normal<5.0MP-[facility] 250 DO Work Phone: Comment on above:PERFORMED BY:[place] [address] [place], [place] [phone] MEDICAL DIRECTORJE SHELLEY M.D.39\S\39NormalMP-[facility] 250 DO Work Phone: [phone]\S\197above high raegtgukz34-355RQ-Zxmtp [facility] 250 DO Work Phone: Comment on above:TRIG ATP III CLASSIFICATION TRIG less than 150 mg/dL Normal TRIG 150-199 mg/dL Borderline high JNFR960-771 mg/dL High TRIG greater than 500 mg/dL Very high Standard traceable to the Center for Disease Conrtrol and Prevention (CDC) test method.34\S\34below low threshold 63-24RK-Aqsbx [facility] 250 DO Work Phone: Comment on above:HDL CHOL ATP-III CLASSIFICATION Cardiovascular Risk HDL > or equal to 60 mg/dL LOW HDL < 40 mg/dL HIGHNegative NormalNegativeMP-[facility] 250 DO Work Phone: Comment on above:This is a duplicate Ashley SARS Antigen (PRISCILA) result to be used for statistical tracking purpose only.PERFORMED BY:[facility] [place], [place] [phone] MEDICAL DIRECTORJE SHELLEY M.D.CT Angio Coronary Arteries with Heart Flowon [id number] Angio Coronary Arteries with Heart Flow NormalMP-[facility] 250 DO Work Phone: th CTA CORONARY ART WITH HEARTFLOW IF SCORE >30%.on 85-81-1041JK CTA CORONARY ART WITH HEARTFLOW IF SCORE [...] R07.9: Chest pain. COMPARISON: None. ACCESSION NUMBER(S): [id number] ORDERING CLINICIAN: PARK TORRES TECHNIQUE: Using multi-detector [...] Intact. AORTIC VALVE: The (more content not included)...NormalPioneers Medical CenterTobacco Screening.on 38-90-7128Jtczs depression screening assessmentNo-[facility] 250 DO Work Phone: Fall risk assessmenta) No falls within the last year -[facility] [place] 250 DO Work Phone: Tobacco use status CPHSb) NoM-[facility] [employer] 250 DO Work Phone: SURGICAL PATHOLOGYon [phone] PATHOLOGY Specimen #: [id number] Physician: REUBEN CRAVEN M.D. FINAL DIAGNOSIS1. 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 Skin,left upper arm, shave biopsy ([id number]; 07/20/2018) - Intradermal nevus, neurotized (see comment).AF/CE/dss 07/26/2018 COMMENTMany thanks for involving us in this case of two melanocytic lesions fromthe right posterior shoulder and left upper arm of a 57-year-old woman. 1. Histologic sections demonstrate a junctional melanocytic proliferationwith bridging of adjacent rete ridges, papillary dermalfibrosis andunderlying sparse lymphocytic inflammation and melanoderma. An immunohistochemical stain [facility] MART-1 and [facility]. These stains highlight a well-nested,symmetric junctional melanocytic proliferation, consistent with the abovediagnosis.2. Histologic sections demonstrate an intradermal melanocytic proliferationthat matures and disperses to the base. The lesional cells have a spindled,neural appearance with descent into the dermis. Atypia and lymphoidaggregates are not identified. Immunohistochemical stains performed at the [facility] for MART-1and S100 are reviewed. These stains highlight the spindled cells within thedermis. Overall, these histologic and immunohistochemical features areconsistent with the diagnosis ofa neurotized intradermal nevus.Thank you for sending this case in consultation. Please call theDermatopathology Consultation Service at [phone] with questions or ifadditional follow-up information becomes available regarding this patient.This case was reviewed in conjunction with the Dermatopathology Fellow, Dr.Carly Marija MD.Donald Zavaleta M.D. PhD(Electronic Signature) SPECIMEN SUBMITTEDA: 11 SLIDES ([id number]) CLINICAL DATANone provided. of Report: 07/26/2018Date of Procedure: 07/23/2018Dateof Receipt: 07/23/2018Submitted by: REUBEN CRAVEN M.D.Location: O22Yywvldmhae interpretation performed at [facility], [address] [place] [address].NormalKettering Health Behavioral Medical Center Reference LabComment on above:Performed By: #### S ####See report for performing lab information. Vital Signs Date TimeVital SignValuePerforming KdmthkvmzDvghicrr93-89-1321 08:040Body awpenw314.6 cmAlllucia Munroe DO Work Phone: [facility] Sqzocigxjl14-03-2119 08:040Body temperature 97.5 [degF]Shaina Munroe DO Work Phone: [facility] Blnncmkknp33-67-1249 08:13040Diastolic blood vluaneqs08 mm[Hg]Shaina Petznick DO Work Phone: no[facility] CenterUwetszogqx39-51-3726 08:13-0400Heart rate65 /min Shaina Petznick DO Work Phone: no[facility] CenterJwvfadbdhi49-73-6841 08:13-2531NmY3% (BldA) [Mass fraction]98 %Shaina Petznick DO Work Phone: no[facility] CenterTlfxgmqyee63-64-5779 08:13-0400Systolic blood zigecsho355 mm[Hg]Shaina Petznick DO Work Phone: no[facility] CenterQicdoneavj33-68-8162 08:20-0400Body temperature 97.8 [degF]Charan Casey DO Work Phone: [phone]08-13-2025 08:20-0400 Diastolic blood jwdgrbej31 mm[Hg]Charan Casey DO Work Phone: [facility]08-13-2025 08:20-0400 Heart rate70 /minCharan Casey DO Work Phone: [facility]08-13-2025 08:20-0400 Respiratory rate16 /minCharan Casey DO Work Phone: [facility]08-13-2025 08:20-0400 SaO2% (BldA) [Mass fraction]97 %Charan Casey DO Work Phone: [facility]08-13-2025 08:20-0400 Systolic blood lmqpiysl063 mm[Hg]Charan Casey DO Work Phone: [facility]06-16-2025 10:29-0400 Body lrknom619.6 cmAlllucia Petfelipeick DO Work Phone: no[facility] CenterCitdluqlxb76-20-1057 10:29-0400Body mass index (BMI) [Ratio]35.86 kg/g4Lkqvnsc Petznick DO Work Phone: noR[facility] CenterKzofyxqscz99-51-0507 10:29-0400Body temperature 97.2 [degF]Shaina Munroe DO Work Phone: [facility] CenterMfxxvrnotk60-18-1231 10:29-0400Body cdqopt294.79 kgShaina Munroe DO Work Phone: 1(126)[facility]-7264[facility] CenterLwxvgrsefy28-87-0516 10:29-0400Diastolic blood hsyozppm35 mm[Hg]Shaina Munroe DO Work Phone: 1(978)001-[address] [place], [place] [address]Xeovvxydmv71-77-2920 10:29-0400Heart rate67 /min Shaina Munroe DO Work Phone: 1(940)[facility] [place], [place] [address]Egsalfybsd07-43-5149 10:29-7431DbA8% (BldA) [Mass fraction]98 %Shaina Munore DO Work Phone: 1(858)[facility]-2158[facility] CenterCqmobbxjvj36-71-9496 10:29-0400Systolic blood hvuohsbx205 mm[Hg]Shaina Munroe DO Work Phone: 1(227)755-[address] [place], [place] [address]Peuzfqzhgn36-88-7720 08:09-0400Body .18 cmCharan Casey DO Work Phone: 1(143)[address]04-07-2025 08:09-0400 Body mass index (BMI) [Ratio]35.4 kg/m8MzroxCharan Casey DO Work Phone: 1(230)[address]04-07-2025 08:09-0400 Body .51 kgCharan Casey DO Work Phone: 1(011)[phone]04-07-2025 08:09-0400 Respiratory rate16 /minCharan Casey DO Work Phone: 1(069)[phone]04-07-2025 08:09-0400 SaO2% (BldA) [Mass fraction]98 %Charan Casey DO Work Phone: 1([phone])[phone]03-20-2025 09:35-0400 Body .18 cmCharan Casey DO Work Phone: 1(793)638-[address] [place], [place] 8320203-20-2025 09:35-0400 Body mass index (BMI) [Ratio]36.5 kg/w2NwzkkCharan Masseys DO Work Phone: 1(581)[address]03-20-2025 09:35-0400 Body qsoxmd767.68 kgCharan Masseys DO Work Phone: 1(546)2-[address] [place], [place] 8320202-10-2025 10:01-0500 Body .18 cmCharan Masseys DO Work Phone: 1(327)9-[address] [place], [place] 8320202-10-2025 10:01-0500 Body mass index (BMI) [Ratio]36.5 kg/j9MsppyCharan Masseys DO Work Phone: 1(687)[address] [place], [place] 7312702-10-2025 10:01-0500 Body .68 kgCharan Masseys DO Work Phone: 1(381)[address] [place], [place] 7312702-10-2025 10:01-0500 Diastolic blood mm[Hg]Charan Masseys DO Work Phone: 1(179)[address] [place], [place] 7312702-10-2025 10:01-0500 Heart rate69 /minCharan Masseys DO Work Phone: 1(498)[address] [place], [place] 7312702-10-2025 10:01-0500 Respiratory rate16 /minCharan Masseys DO Work Phone: 1(491)[address] [place], [place] 7312702-10-2025 10:01-0500 SaO2% (BldA) [Mass fraction]98 %Charan Masseys DO Work Phone: 1(663)[address] [place], [place] 7312702-10-2025 10:01-0500 Systolic blood vawltoet588 mm[Hg]Charan Masseys DO Work Phone: 1(852)[address] [place], [place] 7312701-10-2025 10:39-0500 Body nqigkm574.18 cmYeisonan Brysons DO Work Phone: 1(919)[address] [place], [place] 7312701-10-2025 10:39-0500 Body mass index (BMI) [Ratio]36.1 kg/b5Htlws Brysons DO Work Phone: [facility]01-10-2025 10:39-0500 Body ibrrdctvhtw80.4 [degF]Charan Masseys DO Work Phone: [facility]01-10-2025 10:39-0500 Body oxdrvj211.77 kgCharan Masseys DO Work Phone: [facility]01-10-2025 10:39-0500 Diastolic blood ibdkmqhy90 mm[Hg]Charanheather Masseys DO Work Phone: [facility]01-10-2025 10:39-0500 Heart rate78 /minYeisonan Brysons DO Work Phone: [facility]01-10-2025 10:39-0500 Respiratory rate16 /minYeisonan Kuns DO Work Phone: [address] [place], [place] 2955001-10-2025 10:39-0500 SaO2% (BldA) [Mass fraction]97 %Charan Masseys DO Work Phone: [facility]01-10-2025 10:39-0500 Systolic blood gbhtofvt717 mm[Hg]Charan Masseys DO Work Phone: [facility]12-03-2024 09:30-0500 Diastolic blood lcbbstax26 mm[Hg]Charan Masseys DO Work Phone: [facility]12-03-2024 09:30-0500 Heart rate65 /minYeisonan Brysons DO Work Phone: [facility]12-03-2024 09:30-0500 Respiratory rate16 /minYeisonan Kuns DO Work Phone: [facility]12-03-2024 09:30-0500 SaO2% (BldA) [Mass fraction]99 %Charan Brysons DO Work Phone: [facility]12-03-2024 09:30-0500 Systolic blood myzzuahh112 mm[Hg]Charan Casey DO Work Phone: [facility]12-03-2024 08:48-0500 Inhaled oxygen flow rate3 L/minCharan Casey DO Work Phone: [facility]12-03-2024 07:38-0500 Body jaxwzp464.18 cmCharan Casey DO Work Phone: [facility]12-03-2024 07:38-0500 Body zjczev621.86 kgCharan Casey DO Work Phone: [facility]11-20-2024 08:13-0500 Body skybvh518.88 kgCharan Casey DO Work Phone: [phone]11-18-2024 13:12-0500 Body smcigi129.6 cmAlllucia Petznarnaldo DO Work Phone: 6(921)873-[address] [place], [place] [address]Koqmbqdgwg95-03-7788 13:12-0500Body mass index (BMI) [Ratio]39.06 kg/z1Noxsbmg Petznick DO Work Phone: [facility] CenterYxbdkftzwu90-80-4764 13:12-0500Body temperature 97.3 [degF]Shaina Petznick DO Work Phone: 1(016)466-[address] [place], [place] [address]Smzmltscho74-96-0968 13:12-0500Body lbjlze938.77 kgAllison Petznick DO Work Phone: 9(380)478-[address] [place], [place] [address]Ykzgmgwljg84-61-6708 13:12-0500Diastolic blood mm[Hg]Shaina Petznick DO Work Phone: [facility] CenterDpcizrausw07-35-2868 13:12-0500Heart rate78 /min Shaina Petznick DO Work Phone: [place] [address]Ugigfmohpy89-52-1367 13:12-1809ZdP5% (BldA) [Mass fraction]96 %Shaina Petznick DO Work Phone: [facility] CenterCfqryvxktw81-01-8380 13:12-0500Systolic blood tnksxnla875 mm[Hg]Shaina Petznick DO Work Phone: [facility] CenterIkvweqdfcv48-33-0007 10:28-0400Diastolic blood rrvuvrxv66 mm[Hg]DO Charan Casey Work Phone: [facility]10-22-2024 10:28-0400 Heart rate68 /Dean Casey Work Phone: [facility]10-22-2024 10:28-0400 Respiratory rate16 /Dean Casey Work Phone: [facility]10-22-2024 10:28-0400 SaO2% (BldA) [Mass fraction]95 %DO Charan Casey Work Phone: [facility]10-22-2024 10:28-0400 Systolic blood gfjlfhfa859 mm[Hg]DO Charan Casey Work Phone: [address] [place], [place] 295[address]010-22-2024 09:50-0400 Inhaled oxygen flow rate3 L/Dean Casey Work Phone: [facility]10-22-2024 08:38-0400 Body ghlukj535.18 cmDO Charan Casey Work Phone: [facility]10-22-2024 08:38-0400 Body zfjocb593.95 kgDO Charan Casey Work Phone: [facility]09-26-2024 08:35-0400 Body idhfqe770.2 cmRosalinda Torres MD Work Phone: [facility]09-26-2024 08:35-0400 Body mass index (BMI) [Ratio]37.75 kg/v4FuenhnRosalinda Torres MD Work Phone: [facility]09-26-2024 08:35-0400 Body ajidww751.32 kgRosalinda Torres MD Work Phone: [facility]09-26-2024 08:35-0400 Diastolic blood mm[Hg]Rosalinda Torres MD Work Phone: [facility]09-26-2024 08:35-0400 Heart rate80 /Aleida Torres MD Work Phone: [facility]09-26-2024 08:35-0400 Systolic blood rfiiemqq963 mm[Hg]Rosalinda Torres MD Work Phone: [facility]07-10-2024 15:44-0400 Body .18 cmDO Charan Casey Work Phone: [facility]07-10-2024 15:44-0400 Body mass index (BMI) [Ratio]37 kg/m2DO Charan Casey Work Phone: [facility]07-10-2024 15:44-0400 Body jsedcm119.5 kgDO Charan Casey Work Phone: [facility]07-10-2024 15:44-0400 Diastolic blood weffoyej80 mm[Hg]DO Charan Casey Work Phone: [facility]07-10-2024 15:44-0400 Heart rate95 /Dean Casey Work Phone: [facility]07-10-2024 15:44-0400 SaO2% (BldA) [Mass fraction]96 %DO Charan Casey Work Phone: [facility]07-10-2024 15:44-0400 Systolic blood rgahcobd384 mm[Hg]DO Charan Casey Work Phone: [facility]07-02-2024 11:30-0400 Diastolic blood ycnffuxw25 mm[Hg]DO Charan Casey Work Phone: [facility]07-02-2024 11:30-0400 Heart rate68 /minDO Charan Casey Work Phone: [address] [place], [place] 2955007-02-2024 11:30-0400 Respiratory rate16 /GeovanyO Charan Casey Work Phone: [facility]07-02-2024 11:30-0400 SaO2% (BldA) [Mass fraction]98 %DO Charan Casey Work Phone: [facility]07-02-2024 11:30-0400 Systolic blood sapsvgng845 mm[Hg]DO Charan Casey Work Phone: [facility]07-02-2024 10:53-0400 Inhaled oxygen flow rate3 L/Dean Casey Work Phone: [address] [place], [place] 2955007-02-2024 10:09-0400 Body rrdsga030.18 cmDO Charan Casey Work Phone: 7(992)[address]07-02-2024 10:09-0400 Body atfeyx272.86 kgDO Charan Casey Work Phone: [facility]04-02-2024 09:31-0400 Body jufgud554.18 cmDO Charan Casey Work Phone: [facility]04-02-2024 09:31-0400 Body mass index (BMI) [Ratio]37.4 kg/m2DO Charan Casey Work Phone: [facility]04-02-2024 09:31-0400 Body gchsqeinkpa75.8 [degF]DO Charan Casey Work Phone: [facility]04-02-2024 09:31-0400 Body nygrwt356.4 kgDO Charan Casey Work Phone: [facility]04-02-2024 09:31-0400 Diastolic blood ltpecsch10 mm[Hg]DO Charan Casey Work Phone: [facility]04-02-2024 09:31-0400 Heart rate88 /Dean Casey Work Phone: [facility]04-02-2024 09:31-0400 Respiratory rate16 /Dean Casey Work Phone: [facility]04-02-2024 09:31-0400 SaO2% (BldA) [Mass fraction]98 %DO Charan Casey Work Phone: [facility]04-02-2024 09:31-0400 Systolic blood dnbfkolr777 mm[Hg]DO Charan Casey Work Phone: [facility]03-25-2024 14:26-0400 Body ynheib592.2 cmRosalinda Torres MD Work Phone: 2(298)526-[address] [place], [place] 6464903-25-2024 14:26-0400 Body mass index (BMI) [Ratio]37.12 kg/b0MvrjzrRosalinda Torres MD Work Phone: 5(670)635-[address] [place], [place] 6464903-25-2024 14:26-0400 Body .5 kgRosalinda Torres MD Work Phone: 3(642)008-[address] [place], [place] 6464903-25-2024 14:26-0400 Diastolic blood kjljdlux46 mm[Hg]Rosalinda Torres MD Work Phone: 2(139)816-[address] [place], [place] 6464903-25-2024 14:26-0400 Heart rate84 /minRosalinda Torres MD Work Phone: 3(723)283-[address] [place], [place] 6464903-25-2024 14:26-0400 Systolic blood mrqubcuu595 mm[Hg]Rosalinda Torres MD Work Phone: 4(624)982-[address] [place], [place] 6464901-31-2024 13:00-0500 Body jeclxa875.18 cmCharan Casey Other [facility]01-31-2024 13:00-0500 Body mass index (BMI) [Ratio]37.59 kg/n7RtvroCharan Casey Other [employer] Other 01-31-2024 13:00-0500Body chqqrbillmz74.3 [degF]Charan Casey Other [facility] [employer] Other 01-31-2024 13:00-0500Body tvamir687.86 kgCharan Casey Other [facility]01-31-2024 13:00-0500 Diastolic blood bivmdynu73 mm[Hg]Charan Casey Other [facility]01-31-2024 13:00-0500 Respiratory rate18 /minCharan Casey Other [facility] [employer] Other 01-31-2024 13:00-7138BrI7% (BldA) [Mass fraction]96 % Charan Casey Other [facility] [employer] Other 01-31-2024 13:00-0500Systolic blood eqnfpxlf533 mm[Hg] Charan Casey Other [facility]11-22-2023 12:45-0500 Body gjauti877.18 cmThommarquez Bellamy Other [employer] Other 11-22-2023 12:45-0500Body mass index (BMI) [Ratio] 37.43 kg/l7Nddifv Josesito Other [employer] Other 11-22-2023 12:45-0500Body dbqunoooswj59.6 [degF]Blas Josesito Other [employer] Other 11-22-2023 12:45-0500Body .41 kgThomas Josesito Other [employer] Other 11-22-2023 12:45-0500Diastolic blood fpejxagv24 mm[Hg] Blas Bellamy Other [facility] [employer] Other 11-22-2023 12:45-0500Respiratory rate18 /minThomas Josesito Other [facility] [employer] Other 11-22-2023 12:45-8859SwW1% (BldA) [Mass fraction]96 % Blas Bellamy Other [facility] [employer] Other 11-22-2023 12:45-0500Systolic blood gstobqhu662 mm[Hg] Blas Bellamy Other [facility] [employer] Other 11-07-2023 09:04-0500Diastolic blood pojcpsiz78 mm[Hg] DO Charan Casey Work Phone: [facility]11-07-2023 09:04-0500 Heart rate76 /Dean Casey Work Phone: [facility]11-07-2023 09:04-0500 Respiratory rate16 /Dean Casey Work Phone: [facility]11-07-2023 09:04-0500 SaO2% (BldA) [Mass fraction]96 %DO Charan Casey Work Phone: [facility]11-07-2023 09:04-0500 Systolic blood mm[Hg]DO Charan Casey Work Phone: [facility]11-07-2023 07:01-0500 Body .18 cmDO Charan Casey Work Phone: [facility]11-07-2023 07:01-0500 Body .59 kgDO Charan Casey Work Phone: [facility]10-17-2023 10:20-0400 Body dwiflo062.18 cmAbdul Sole Other [facility] [employer] Other 10-17-2023 10:20-0400Body mass index (BMI) [Ratio] 37.46 kg/a1Jghit Sole Other [facility] [employer] Other 10-17-2023 10:20-0400Body anmexnvlvet48.2 [degF]Elpidio Sole Other [facility] [employer] Other 10-17-2023 10:20-0400Body yarofy402.5 kgAbdul Sole [facility] 10-17-2023 10:20-0400Diastolic blood dqqxvnuv87 mm[Hg] Elpidio Sole Other [facility] 10-17-2023 10:20-0400Respiratory rate18 /minAbdul Sole Other [facility] [employer] Other 10-17-2023 10:20-5843MsV2% (BldA) [Mass fraction]99 % Elpidio Sole Other [facility] [employer] Other 10-17-2023 10:20-0400Systolic blood zfwzenzz711 mm[Hg] Elpidio Sole Other [facility] [employer] Other 10-10-2023 09:00-0400Diastolic blood vcmhykrb19 mm[Hg] DO Charan Casey Work Phone: [facility]10-10-2023 09:00-0400 Heart rate69 /Dean Casey Work Phone: [facility]10-10-2023 09:00-0400 Respiratory rate16 /Dean Casey Work Phone: [facility]10-10-2023 09:00-0400 SaO2% (BldA) [Mass fraction]96 %DO Charan Casey Work Phone: [facility]10-10-2023 09:00-0400 Systolic blood qoatmbuu704 mm[Hg]DO Charan Casey Work Phone: [address] [place], [place] 2955010-10-2023 08:17-0400 Inhaled oxygen flow rate3 L/Dean Casey Work Phone: 1(745)[address]10-10-2023 07:21-0400 Body ypccaj816.18 cmDO Charan Casey Work Phone: [facility]10-10-2023 07:21-0400 Body hwtaub434.86 kgDO Charan Casey Work Phone: [facility]09-18-2023 09:30-0400 Body yxysug446.18 cmThomas Felter Other [facility] [employer] Other 09-18-2023 09:30-0400Body mass index (BMI) [Ratio] 38.06 kg/b0Zhgjzo Felter Other [facility] [employer] Other 09-18-2023 09:30-0400Body mscuaw427.22 kgThomas Felter Other [employer] Other 09-12-2023 09:20-0400Body xsvdxe831.18 cmDale Chatterjee Other [employer] Other 09-12-2023 09:20-0400Body mass index (BMI) [Ratio] 38.06 kg/m2Thierno Chatterjee Other [employer] Other 09-12-2023 09:20-0400Body hmawyl366.22 kgThierno Chatterjee Other [employer] Other 09-12-2023 09:20-0400Diastolic blood ypdcalfl65 mm[Hg] Thierno Chatterjee Other [employer] Other 09-12-2023 09:20-0400Systolic blood fivttmfi389 mm[Hg] Thierno Chatterjee Other [employer] Other 09-06-2023 08:15-0400Body bfzagz483.18 cmCharan Casey Other [employer] Other 09-06-2023 08:15-0400Body mass index (BMI) [Ratio] 38.21 kg/h3AcnqrCharan Casey Other [employer] Other 09-06-2023 08:15-0400Body poywdn844.68 kgCharan Casey Other [employer] Other 09-06-2023 08:15-0400Diastolic blood mm[Hg] Charan Casey Other [employer] Other 09-06-2023 08:15-0400Respiratory rate18 /minCharan Casey Other [employer] Other 09-06-2023 08:15-0253QlA2% (BldA) [Mass fraction]95 % Charan Casey Other [employer] Other 09-06-2023 08:15-0400Systolic blood mwidazho606 mm[Hg] Charan Casey Other [facility] [employer] Other 06-20-2023 12:30-0400Body sqqfca471.18 cmCharan Casey Other [facility] [employer] Other 06-20-2023 12:30-0400Diastolic blood elamymtm21 mm[Hg] Charan Casey Other [facility] [employer] Other 06-20-2023 12:30-0400Respiratory rate18 /minCharan Casey Other [facility] [employer] Other 06-20-2023 12:30-7735EaY9% (BldA) [Mass fraction]97 % Charan Casey Other [facility] [employer] Other 06-20-2023 12:30-0400Systolic blood qjwmnast336 mm[Hg] Charan Casey Other [facility] [employer] Other 06-01-2023 10:17-0400Body tgafpy196.18 cmCharan Casey Work Phone: 1(226) [phone]-Fmkqg [place] [employer] 250 DO Work Phone: 1(127) 384-912106-01-2023 10:17-0400Body mass index (BMI) [Ratio] Medical Reason Not DoneCharan Casey Work Phone: [phone]-Fbhym [place] [employer] 250 DO Work Phone: 1(142) 340-466506-01-2023 10:17-0400Diastolic blood mgwkbfol07 mm[Hg] Charan Casey Work Phone: [phone]-Nxokk [place] [employer] 250 DO Work Phone: 1(449) 429-800006-01-2023 10:17-0400Heart rate72 /minCharan Casey Work Phone: mp156-7189BW-Ymydw [place] [employer] [facility] 250 DO Work Phone: 1(771) 430-575206-01-2023 10:17-0400Systolic blood ukjnbwys854 mm[Hg] Charan Casey Work Phone: [phone]-Vagyk [place] [employer] 250 DO Work Phone: 1(756) 332-343405-02-2023 15:30-0400Body nwcrfy783.18 cmCharan Casey Other [employer] Other 05-02-2023 15:30-0400Diastolic blood minoorfk37 mm[Hg] Charan Casey Other [employer] Other 05-02-2023 15:30-0400Respiratory rate18 /minCharan Casey Other [employer] Other 05-02-2023 15:30-4469JnL9% (BldA) [Mass fraction]98 % Charan Casey Other [facility] Other 05-02-2023 15:30-0400Systolic blood mm[Hg] Charan Casey Other [employer] Other 04-11-2023 15:40-0400Body sbekkk795.18 cmAbdul Sole Other [employer] Other 04-11-2023 15:40-0400Diastolic blood bbcshjyw37 mm[Hg] Elpidio Sole Other [employer] Other 04-11-2023 15:40-0400Respiratory rate16 /minAbdul Sole Other [employer] Other 04-11-2023 15:40-8499XvD9% (BldA) [Mass fraction]99 % Elpidio Sole Other [employer] Other 04-11-2023 15:40-0400Systolic blood ttzimwtn898 mm[Hg] Elpidio Sole Other [employer] Other 04-05-2023 15:00-0400Body qgivme186.18 cmChrjose Coco Other [employer] Other 04-05-2023 15:00-0400Body mass index (BMI) [Ratio] 37.43 kg/y0Osopsbvsjzg Coco Other [employer] Other 04-05-2023 15:00-0400Body txetep644.41 kgChristopher Coco Other [employer] Other 04-05-2023 15:00-0400Diastolic blood oqcywvzh47 mm[Hg] Williamer Coco Other [employer] Other 04-05-2023 15:00-3893ArR2% (BldA) [Mass fraction]98 % Christopher Coco Other [employer] Other 04-05-2023 15:00-0400Systolic blood cbovppii040 mm[Hg] Christopher Coco Other [employer] Other 10-26-2022 16:00-0400Body euhwpo989.18 cmAbdul Sole Other [employer] Other 10-26-2022 16:00-0400Body mass index (BMI) [Ratio] 37.37 kg/n7Byowv Sole Other [employer] Other 10-26-2022 16:00-0400Body eovqeynslbj66.4 [degF]Elpidio Sole Other [employer] Other 10-26-2022 16:00-0400Body beukle696.23 kgAbdul Sole Other [employer] Other 10-26-2022 16:00-0400Diastolic blood iqulgclw40 mm[Hg] Elpidio Sole Other [employer] Other 10-26-2022 16:00-0400Respiratory rate16 /minAbdul Sole Other [employer] Other 10-26-2022 16:00-0228NgM9% (BldA) [Mass fraction]98 % Elpidio Sole Other [employer] Other 10-26-2022 16:00-0400Systolic blood jwcxmyys433 mm[Hg] Elpidio Sole Other [employer] Other 10-04-2022 14:00-0400Body ajoean290.18 cmCharan Casey Other [employer] Other 10-04-2022 14:00-0400Body mass index (BMI) [Ratio]37.9 kg/d6Rouwt Kuns Other [employer] Other 10-04-2022 14:00-0400Body tlfvci184.77 kgCharan Casey Other [employer] Other 10-04-2022 14:00-0400Diastolic blood kfqfqkpy18 mm[Hg] Charan Casey [facility] [employer] Other 10-04-2022 14:00-0400Respiratory rate16 /minYeisonheather Casey Other [employer] [employer] Other 10-04-2022 14:00-0280WmD0% (BldA) [Mass fraction]97 % Charan Casey Other [facility] [employer] Other 10-04-2022 14:00-0400Systolic blood mm[Hg] Charan Casey Other [facility] [employer] Other 08-28-2022 19:56-0400Body tvtayk041.18 cmDO Charan Casey Work Phone: [facility]08-28-2022 19:56-0400 Body zxtunrjocwd58.1 [degF]DO Charan Casey Work Phone: [facility]08-28-2022 19:56-0400 Body .55 kgDO Charanheather Masseybryn Work Phone: [facility]08-28-2022 19:56-0400 Diastolic blood gckzebed43 mm[Hg]DO Charanheather Masseybryn Work Phone: [facility]08-28-2022 19:56-0400 Heart rate89 /minDO Charan Casey Work Phone: [facility]08-28-2022 19:56-0400 Respiratory rate20 /minDO Charan Casey Work Phone: [facility]08-28-2022 19:56-0400 SaO2% (BldA) [Mass fraction]98 %DO Charan Casey Work Phone: [facility]08-28-2022 19:56-0400 Systolic blood qaelsdhx556 mm[Hg]DO Charan Casey Work Phone: [facility]06-09-2022 08:51-0400 Body bqozdj966.18 cmCharan Casey Work Phone: 1(296) [phone]-Flnfb [facility] 250 DO Work Phone: 1(984) 750-812406-09-2022 08:51-0400Body mass index (BMI) [Ratio] 38.06 kg/n6Wrhywheather Casey Work Phone: 1(885) [phone]-Sfhbg[facility]-[place] 250 DO Work Phone: 1(277) 550-646806-09-2022 08:51-0400Body surface area Derived from formula2.2 e6Ezxyoheather Casey Work Phone: 1(256) [phone]-HimxjMer[facility]-[place] 250 DO Work Phone: 1(799) 266-858206-09-2022 08:51-0400Body .22 kgCharan Dani Casey Work Phone: 1(162) [phone]-Nkafu [facility] 250 DO Work Phone: 1(923) [phone] 08:51-0400Diastolic blood gicwblgw34 mm[Hg] Charan Dani Casey Work Phone: 1(700) [phone]-Wsisz [facility] 250 DO Work Phone: 1(721) 238-937606-09-2022 08:51-0400Heart rate72 /minCharan Louise Jacinto Work Phone: 1(525) [phone]-Fpner [facility] 250 DO Work Phone: 1(108) 333-366606-09-2022 08:51-0400Systolic blood tsrtjjxo438 mm[Hg] Charan Louise Jacinto Work Phone: 1(811) [phone][facility] 250 DO Work Phone: 1(811) [phone] 17:00-0400Body wihwrs513.18 cmChristcalderon Coco Other [employer] Other 06-01-2022 17:00-0400Body mass index (BMI) [Ratio] 38.52 kg/c2Oygqocyhdor Coco Other [employer] Other 06-01-2022 17:00-0400Body oilaxfoxxhv78.1 [degF] Christbryoner Coco Other [employer] Other 06-01-2022 17:00-0400Body xfgupq376.59 kgChristopher Coco Other [employer] Other 06-01-2022 17:00-0400Diastolic blood tsdoqghr09 mm[Hg] Christbryoner Coco Other [employer] Other 06-01-2022 17:00-8868EeG7% (BldA) [Mass fraction]97 % Christopher Coco Other [employer] Other 06-01-2022 17:00-0400Systolic blood zjxxuxye948 mm[Hg] Christbryoner Coco Other [employer] Other 05-16-2022 11:30-0400Body nfvzmy004.18 cmCharan Casey Other [employer] Other 05-16-2022 11:30-0400Body mass index (BMI) [Ratio] 38.52 kg/b4MvgasCharan Casey Other [employer] Other 05-16-2022 11:30-0400Body .59 kgCharan Casey Other [employer] Other 05-16-2022 11:30-0400Diastolic blood lifyzwdu21 mm[Hg] Charan Casey Other [employer] Other 05-16-2022 11:30-0400Respiratory rate16 /minCharan Casey Other [employer] Other 05-16-2022 11:30-5296PnR4% (BldA) [Mass fraction]99 % Charan Casey Other [employer] Other 05-16-2022 11:30-0400Systolic blood lfeadkxn121 mm[Hg] Charan Casey Other [employer] Other 03-24-2022 17:00-0400Body mass index (BMI) [Ratio] 38.56 kg/v0Wxsns Sole Other [employer] Other 03-24-2022 17:00-0400Body gltkidtkobw31.2 [degF]Elpidio Sole Other [employer] Other 03-24-2022 17:00-0400Body dnvodw486.68 kgAbdul Sole Other [employer] Other 03-24-2022 17:00-0400Diastolic blood xpaybbpv88 mm[Hg] Elpidio [facility] [employer] Other 03-24-2022 17:00-0400Respiratory rate18 /minAbdul Sole Other [facility] [employer] Other 03-24-2022 17:00-8123GdD5% (BldA) [Mass fraction]98 % Elpidio Sole Other [facility] [employer] Other 03-24-2022 17:00-0400Systolic blood aybayclo841 mm[Hg] Elpidio Sole Other [facility] [employer] Other 03-24-2022 12:28-0400Body ceaqfb125.18 cmCharan Dani Casey Work Phone: [phone]-Ztyoo [place] [employer] [address] DO Work Phone: 1(355) 981-230303-24-2022 12:28-0400Body mass index (BMI) [Ratio] 38.37 kg/f0Wzhkv Dani Masseybryn Work Phone: [phone]-Femgg [place] [employer] [address] DO Work Phone: 1(891) 974-137503-24-2022 12:28-0400Body surface area Derived from formula2.2 u5Kvqoa Dani Casey Work Phone: [id number]-Epfif [place] [employer] [address] DO Work Phone: 1(900) 410-465403-24-2022 12:28-0400Body ylfvhx631.13 kgCharan Casey Work Phone: [phone]-Yyrfo [place] [employer] [address] DO Work Phone: 1(578) 361-213403-24-2022 12:28-0400Diastolic blood auarwiwt46 mm[Hg] Charan Casey Work Phone: [phone]-Husiq [place] [employer] [address] DO Work Phone: 1(652) 105-713703-24-2022 12:28-0400Heart rate72 /minCharan Casey Work Phone: mp120-7238FI-Ohrig [place] [employer] [address] DO Work Phone: 1(175) 847-525203-24-2022 12:28-0400Systolic blood pquircfk150 mm[Hg] Charan Casey Work Phone: mp186-8797VP-Mlvyn [place] [employer] [address] DO Work Phone: 1(116) 475-948803-11-2022 09:45-0500Body .18 cmCharan Casey Other [employer] Other 03-11-2022 09:45-0500Body mass index (BMI) [Ratio] 38.27 kg/k8VqnqrCharan Casey Other [employer] Other 03-11-2022 09:45-0500Body wtyzvu016.86 kgCharan Casey Other [employer] Other 03-11-2022 09:45-0500Diastolic blood dobpilti00 mm[Hg] Charan Casey Other [employer] Other 03-11-2022 09:45-0500Respiratory rate18 /minCharan Casey Other [employer] Other 03-11-2022 09:45-0262EcF8% (BldA) [Mass fraction]95 % Charan Casey Other [employer] Other 03-11-2022 09:45-0500Systolic blood gulkyjax257 mm[Hg] Charan Casey Other [employer] Other 02-01-2022 17:20-0500Body fmebos138.18 cmDayudi Chatterjee Other [employer] Other 02-01-2022 17:20-0500Body mass index (BMI) [Ratio] 38.84 kg/m2Dale Chatterjee Other [employer] Other 02-01-2022 17:20-0500Body awjjhg359.49 kgDale Chatterjee Other [employer] Other 01-04-2022 15:00-0500Body rivwgn651.18 cmYeisonheather Casey Other [employer] Other 11-02-2021 17:15-0400Body .18 cmTjeb Ortiz Other [employer] Other Encounters Encounter DateEncounter TypeCare ProviderFacilityStart: 10-11-2025 End: 15-74-7457Drvldbekc encounterAlllucia Munroe DO Work Phone: [facility] 230Comment on above: Medication QuestionStart: 07-27-2025 End: 93-26-2207Syihxw flowsheetShaina Munroe DO Work Phone: [facility] 230Start: 07-27-2025 End: 95-48-9376Wgoxpy flowsheetShaina Munroe DO Work Phone: [facility] 230Start: 07-27-2025 End: 46-76-1024Adcnwi outpatient visit 25 minutesAlllucia Munroe DO Work Phone: [facility] 230Comment on above:Type 2 diabetes mellitus with [...] index (BMI) of35.0 to 35.9 in adult ([facility]-HCC)Start: 07-27-2025 End: 69-39-7365vzerwzbvemUZCGMHB M PETZNICKNot AvailableStart: 07-12-2025 End: 17-10-1037qemtcybhulAcedn Kuns DO Work Phone: [facility] Work Phone: Start: 07-12-2025 End: 57-87-3034Tfkgsvw encounter procedureCharan Louise DO-[facility] Work Phone: Start: 95-41-9988Myp-patient / Non-visitMojunito Lyons MD-[facility] Work Phone: Start: 64-63-9663Rhj-patient / Non-visitMojunito Lyons MD-[facility] Work Phone: Start: 12-78-5155Fdx-patient / Non-visitGustavo Cuevas DO -[facility] Work Phone: Start: 06-21-2025 End: 76-98-5176lwvhjrpdjvVwmdq Kuns DO Work Phone: [facility] Work Phone: Start: 06-21-2025 End: 56-53-4970Xmmwdsf encounter procedureBlas Louise MD-[facility] Work Phone: Start: 07-03-0967Yae-patient / Non-visitBlas Louise MD-[facility] Work Phone: Start: 06-14-2025 End: 08-44-6761ztlwjvbgwbMuhcj Kuns DO Work Phone: [facility] Work Phone: Start: 06-14-2025 End: 92-66-1670Qmseupu encounter procedureBlas Louise MD-[facility] Work Phone: Start: 06-05-2025 End: 36-68-0582Lnrzmol encounter procedurePelizbeth [facility]: 06-05-2025 End: 91-15-4056manlmatjiiAkdjm Kuns DO Work Phone: [facility] Work Phone: Start: 05-31-2025 End: 18-23-0882kfdixbojvwJubhe Kuns DO Work Phone: [facility] Work Phone: Start: 05-31-2025 End: 32-05-0058Ljpqwrg encounter procedureBlas Louise MD-[facility] Work Phone: Start: 05-15-2025 End: 94-66-6970Czrzjq outpatient visit 25 minutesAlllucia Munroe DO Work Phone: [facility] 230Comment on above:Type 2 diabetes mellitus with [...] index (BMI) of35.0 to 35.9 in adult ([facility])Start: 05-15-2025 End: 21-61-9597ziznogzkdbWJTUTPD M PETZNICKNot AvailableStart: 03-06-2025 End: 64-30-9897aooxiwzrvxDcyxk Kuns DO Work Phone: [facility] Work Phone: Start: 03-06-2025 End: 54-11-5454Vaznlkw encounter procedureBryan Kuns DO Work Phone: [facility] Family [facility] Work Phone: Start: 02-16-2025 End: 87-95-7063ftwqrrknzkHdjyi Kuns DO Work Phone: [facility] Work Phone: Start: 02-16-2025 End: 69-79-8011Xivnilv encounter procedureBryheather Masseys DO Work Phone: [facility] Physician Group-[facility] Work Phone: Start: 02-14-2025 End: 52-52-1368rumbnkbreoQXFGETOAri William AvailableStart: 03-43-5158Dfw- patient / Non-visitBryheather Masseys DO Work Phone: [facility] Work Phone: Start: 02-01-2025 End: 80-02-1638xdomoqgettBiosw Kuns DO Work Phone: [facility] Work Phone: Start: 02-01-2025 End: 41-26-6613Egrsxfw encounter procedureBryheather Masseys DO Work Phone: [facility] Work Phone: Start: 01-31-2025 End: 08-08-6744ofbfitpvllYogjq Kuns DO Work Phone: [facility] Work Phone: Start: 01-31-2025 End: 54-46-1340Exrhpjqvig RecurringBryan Kuns DO Work Phone: [facility]-Physical Therapy [place]Start: 37-49-3980Fcfkkscvjd RecurringBryan Kuns DO Work Phone: [facility]-Physical Therapy [place]Start: 01-26-2025 End: 53-46-7883npobdtqwzpLvrcw Kuns DO Work Phone: [facility] Work Phone: Start: 01-26-2025 End: 64-16-2175Flhslvi encounter procedureBryheather Masseys DO Work Phone: [facility] Phys[facility] GroupCritical [facility] Hospital Orthoped[facility] Work Phone: Start: 50-60-9295Vgqlmpypko RecurringBryan Brysons DO Work Phone: [facility]-Physical Therapy [place]Start: 01-23-2025 End: 29-39-0651Dcbgfgd encounter procedureBryheather Brysons DO Work Phone: [facility]-MRI [address] Work Phone: Start: 01-23-2025 End: 37-30-0939dtqbjxuhlyJujxc Kuns DO Work Phone: [facility] Work Phone: Start: 01-18-2025 End: 56-65-5376vcbbyfmoxsKevns Kuns DO Work Phone: [facility] Work Phone: Start: 01-18-2025 End: 77-55-9175Ioprlxy encounter procedureYeisonheather Brysons DO Work Phone: [facility] Phys[facility] GroupCritical [facility] Hospital [facility] Mgmt [facility] Work Phone: Start: 14-41-0768Dulaehqtss RecurringCharan Masseys DO Work Phone: [facility]-Physical Therapy [place]Start: 01-09-2025 End: 07-11-9764Eqfozpggy encounterShaina Munroe DO Work Phone: [facility] 230Start: 95-42-5107Caw-patient / Non-visitBryheather Casey DO Work Phone: [facility] GroupLewis [facility] Work Phone: Start: 01-09-2025 End: 83-93-5393kblkdjrczeZqpif Brysons DO Work Phone: [facility] Work Phone: Start: 01-09-2025 End: 85-95-2350Uigexuv encounter procedureBryan Brysons DO Work Phone: [facility] GroupWe[facility] Work Phone: Start: 60-57-0079Gvqkjydcom RecurringBryan Brysons DO Work Phone: [facility]-Physical Therapy [place]Start: 12-29-2024 End: 99-67-8849wosqpwptyyZcrzb Kuns DO Work Phone: [facility] Work Phone: Start: 12-29-2024 End: 14-25-2844Taiaiey encounter procedureBryan Brysons DO Work Phone: [facility] Work Phone: Start: 12-26-2024 End: 59-27-2592rsqvvjfuoiAxykc Kuns DO Work Phone: [facility] Work Phone: Start: 12-26-2024 End: 68-92-4877Pttqqrr encounter procedureBryan Brysons DO Work Phone: [facility] Physician [facility] Pain [facility] Work Phone: Start: 02-65-5399Kcqxpprsdd RecurringBryan Brysons DO Work Phone: [facility]-Physical Therapy [place]Start: 12-09-2024 End: 95-54-3695gzqpiysuqvWnspy Kuns DO Work Phone: [facility] Work Phone: Start: 12-09-2024 End: 71-96-4992Pmegdyr encounter procedureCharan Masseybryn DO Work Phone: [facility] Physician Group-[facility] Work Phone: Start: 12-08-2024 End: 94-64-5716Lvlsatd encounter procedureCharan Casey DO Work Phone: [facility]trStart: 12-08-2024 End: 77-82-3830euwxscrkskHessn Kuns DO Work Phone: [facility] Work Phone: Start: 70-07-3552Ammmvlnlce RecurringBryheather Casey DO Work Phone: [facility]-Physical Therapy [place]Start: 22-54-5329Xtg-patient / Non-visitYeisonheather Casey DO Work Phone: [facility] Physician GroupCritical Access Hospital Pain Mgmt [facility] Work Phone: Start: 2024 End: 81-01-4607Yctvazcqw to same day surgery centerCharan Casey DO Work Phone: [facility]-Digestive Health Work Phone: Start: 2024 End: 09-99-6642ccisxhgohxJvbjze FelterFacility:[facility] Start: 10-25-2024 End: 70-55-0290Jihvzwl encounter procedureCharan Masseybryn DO Work Phone: [facility] Physician GroupCritical Access Hospital Orthopedics Work Phone: Start: 10-25-2024 End: 58-42-0058vrbuidmcckClzdj A BaileyFacility:[facility] Centertart: 10-19-2024 End: 18-43-7578vhmfpgjdyaWbbyp Kuns DO Work Phone: [facility] Work Phone: Start: 10-19-2024 End: 71-81-3792Tdzgfos encounter procedureCharan Casey DO Work Phone: [facility] Work Phone: Start: 10-17-2024 End: 97-89-0539Ffkcgi outpatient visit 25 minutesAlllucia Carmen Acevessebastian DO [...] to 39.9 in adult (CMS/HCC)Start: 10-17-2024 End: 65-54-4751yakmrmbvoaOCBVRHO Carmen MUNROENot AvailableStart: 10-72-7683Gkz- patient / Non-visitDO Charan Casey Work Phone: [facility] Work Phone: Start: 09-20-2024 End: 56-78-4041Rrxvzbaib to same day surgery centerDO Charan Casey Work Phone: [facility]-Digestive Health Work Phone: Start: 09-20-2024 End: 67-09-7210qvhpypoprxJI Charan Casey Work Phone: [facility] Work Phone: Start: 24-16-5693Rcs-patient / Non-visitDO Charan Casey Work Phone: [facility] [place] Work Phone: Start: 09-12-2024 End: 75-43-4670bpqvpigatdED Charan Casey Work Phone: [facility] Work Phone: Start: 09-12-2024 End: 33-13-3329Ffexknp encounter procedureDO Charan Casey Work Phone: [facility] Physician Group-[facility] Work Phone: Start: 09-07-2024 End: 49-25-6514Kdepwmu encounter procedureDO Charan Casey Work Phone: [facility] Work Phone: Start: 09-07-2024 End: 23-06-1990snzgdnsftgHC Bryan Kuns Work Phone: [facility] Work Phone: Start: 09-02-2024 End: 10-74-2222dnlupgouxpTprvg KunsFacility:[facility] Start: 00-35-8920Nghocyjcbx RecurringDO Charan Casey Work Phone: [facility]-Physical Therapy [place]Start: 08-25-2024 End: 13-44-8480Zgyyqt outpatient visit 25 minutesRosalinda Torres MD Work Phone: uh [facility] CenterComk[facility] on above:Coronary artery disease, unspecified vessel or lesion type, unspecified whether angina present, unsp ecified whether emmonak or transplanted heart; Elevated coronary artery calcium [...] unspecified whether serious comorbidity presentStart: 06-13-2024 End: 11-51-8107kpovgennkcSY Bryan Kuns Work Phone: [facility] Work Phone: Start: 06-13-2024 End: 19-96-2960Ubtzqsm encounter procedureDO Charan Casey Work Phone: [facility] Work Phone: Start: 06-08-2024 End: 20-61-0259irsgzacwyyKS Charan Casey Work Phone: [facility] Work Phone: Start: 06-08-2024 End: 79-71-0079Jldwmpn encounter procedureDO Charan Casey Work Phone: [facility] Sleep Lab Work Phone: Start: 95-03-2596Cwh-patient / Non-visitDO Charan Casey Work Phone: [facility] Work Phone: Start: 05-31-2024 End: 54-96-7187Ddwnvhdxa to same day surgery centerDO Charan Casey Work Phone: [facility]-Digestive Health Work Phone: Start: 05-31-2024 End: 01-27-2690fgxuiyxyfiDU Charan Casey Work Phone: [facility] Work Phone: Start: 05-23-2024 End: 50-74-7400ciqpvtfzudBE Charan Casey Work Phone: [facility] Work Phone: Start: 05-23-2024 End: 26-64-8131Sjahsgt encounter procedureDO Charan Casey Work Phone: [facility] Pain Management BC Work Phone: Start: 88-75-5608Lcu-patient / Non-visitDO Charan Casey Work Phone: [facility] [place] Work Phone: Start: 94-89-6505Ocv-patient / Non-visitDO Charan Casey Work Phone: [facility] Family Medicine [place] Work Phone: Start: 63-20-0486Vgc-patient / Non-visitDO Charan Casey Work Phone: [facility] Work Phone: Start: 03-17-2024 End: 04-11-8851mxxkztxjcrGV Charan Casey Work Phone: [facility] Work Phone: Start: 03-17-2024 End: 24-22-5971Knetdng encounter procedureDO Charan Casey Work Phone: [facility] Pain Management [facility] Work Phone: Start: 03-05-2024 End: 97-62-6431mycwcvfyjhKY Charan Casey Work Phone: [facility] Work Phone: Start: 03-05-2024 End: 28-97-5062Iphqbov encounter procedureDO Charan Casey Work Phone: [facility] Main [place] Work Phone: Start: 03-01-2024 End: 56-40-0476bqlydmwsjsMA Charan Casey Work Phone: [facility] Work Phone: Start: 03-01-2024 End: 86-61-4009Jxmnpzi encounter procedureDO Charan Casey Work Phone: [facility] Nephrology Work Phone: Start: 02-29-2024 End: 41-15-6570mtmrtdtfjfLV Charan Casey Work Phone: [facility] Work Phone: Start: 02-29-2024 End: 41-76-1797Cqkflkh encounter procedureDO Charan Casey Work Phone: [facility] Hospitaltart: 43-73-4505Nsk-patient / Non-visitDO Charan Casey Work Phone: [facility] Work Phone: Start: 02-22-2024 End: 48-25-6423kssikqorfyEURUHJ M [facility] AmbulatoryStart: 02-22-2024 End: 71-40-9219Wpmxye outpatient visit 25 minutesRosalinda Torres MD Work Phone: [facility] on above:Coronary artery disease, unspecified vessel or lesion type, unspecified whether angina present, unsp ecified whether emmonak or transplanted heart (Primary Dx); Essential hypertension; 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; Hyperlipidemia, unspecified hyperlipidemia type; Obstructive sleep apnea syndrome; Class 2 obesity with body mass index (BMI) of 37.0 to 37.9 in adult, unspecified obesity type, unspecified whether serious comorbidity present; Insulin-requiring or dependent type II diabetes mellitus ([facility])Start: 04-08-2922Hdj-patient / Non-visitDO Charan Casey Work Phone: [facility] Work Phone: Start: 24-54-0507Znr-patient / Non-visitDO Charan Casey Work Phone: [facility] Work Phone: Start: 02-04-2024 End: 03-30-9779Dzslaxz encounter procedureDO Charan Casey Work Phone: [facility] Pain Management BC Work Phone: Start: 01-11-2024 End: 32-11-7706iqagsmzkqxNicwk Kuns Other [employer] Other Start: 40-00-8099Sznbfkslk encounterCharan Waters Family Medicine [place]Start: 12-31-2023 End: 39-20-1052qahehpsagtCzlkc Kuns Other [employer] Other Start: 90-20-2620Xjbtdsbyw encounterBryheather Waters Family Medicine [place]Start: 12-30-2023 End: 38-84-8159Sijwegn encounter procedureDO Charan Casey Work Phone: [facility]trStart: 12-30-2023 End: 49-77-4755bqhpbrvewgWB Charan Casey Work Phone: [facility] Work Phone: Start: 41-77-8718Pqgovf outpatient visit 15 minutes Charan Waters [facility] [place]Start: 12-30-2023 End: 45-78-4716Liquigm encounter procedureDO Charan Casey Work Phone: [facility] Physician Group-Start: 11-26-2023 End: 75-25-1168gypmzmoarmOT Charan Casey Work Phone: [facility] Work Phone: Start: 11-26-2023 End: 10-39-7489Diqixqh encounter procedureDO Charan Casey Work Phone: [facility]: 11-06-2023 End: 87-67-2553frjkvpsbvzPucnb Kuns Other [employer] Other Start: 86-54-1713Yqgdlqpat encounterCharan Waters Referral CoordinatorStart: 68-07-8954Dsbtbiik care educationDaOhio State Harding Hospital Care ClinicStart: 11-44-8879Wokhjdkjs by computer linkDawn [facility]cy [facility] ClinicStart: 11-05-2023 End: 73-32-8041emdluqcnnpIX Charan Casey Work Phone: [employer] Other Start: 11-05-2023 End: 23-85-4143Ctxfpaatve RecurringDO Charan Casey Work Phone: [facility] [place] [facility] Work Phone: Start: 97-81-2992Clfwddemhb RecurringDO Charan Casey Work Phone: [facility] [place] [facility] Work Phone: Start: 11-03-2023 End: 30-31-1460accdtekkeaFedqi Kuns Other [employer] Other Start: 95-94-8974Kxgehcavy encounterCharan Waters Family Medicine [place]Start: 10-28-2023 End: 61-34-1628xapjeqokhxKyyppl Felter Other [employer] Other Start: 76-75-7480Cnuaob outpatient visit 15 minutes Blas Berger Pain Management [place]Start: 88-76-0814Edmihnznt encounter Blas FelterFPG Pain Management [place]Start: 10-28-2023 End: 75-99-5185Mgpvbiv encounter procedure Charan Casey Work Phone: [facility] Physician Group-[facility] Work Phone: Start: 10-21-2023 End: 49-79-3071anmprktzloNensod Pole Ojea Other [employer] Other Start: 12-48-7873Qtpxvd outpatient visit 15 minutes [facility] Face RoadStart: 10-21-2023 End: 57-55-3153Jbhgrks encounter procedureDO Charan Casey Work Phone: [facility] Physician Group-[facility] Urgent Care [place] Work Phone: Start: 10-19-2023 End: 77-17-7847tafqkbosrrFsxptc Felter Other [employer] Other Start: 11-27-5341Wyldhvvuy encounterThomas FelterFPG Pain Management [place]Start: 10-07-2023 End: 88-49-9762xjsbemerorEquds Kuns Other [employer] Other Start: 62-50-3997Dhfkjmskk encounterBryheather CaseyFPG Family Medicine [place]Start: 10-06-2023 End: 87-33-7310Rgojcqukw to same day surgery centerDO Charan Casey Work Phone: [facility]-Digestive Health Work Phone: Start: 10-06-2023 End: 69-95-5975uhimjpjutvLE Bryan Kuns Work Phone: [facility] Work Phone: Start: 09-23-2023 End: 70-47-8158meahlblffgArylqb Felter Other [employer]arch [employer] Other Start: 40-44-3118Wyzykw outpatient visit 15 minutes Blas FelterFPG Pain Management [place]Start: 09-15-2023 End: 32-14-0220nnuslryhtqCtczw Sole Other [employer]arch [employer] Other Start: 08-98-9333[place]acoba outpatient visit 25 minutes Elpidio QadirFPG NephrologyStart: 09-14-2023 End: 83-25-0170nqotqtbdluNI Bryan Kuns Work Phone: [facility] Work Phone: Start: 09-14-2023 End: 41-64-7825Rcufegn encounter procedureDO Charan Casey Work Phone: [facility] CenterStart: 09-08-2023(Procedure) ShortThomas FelterMercy Health St[facility] OutPtStart: 09-08-2023 End: 98-39-1045Mcqpwnhvk to same day surgery centerDO Charan Casey Work Phone: [facility]-Digestive Health Work Phone: Start: 09-08-2023 End: 39-45-2858cqjonvradvEI Charan Casey Work Phone: [facility] Work Phone: Start: 08-25-2023 End: 12-85-8919cwblxfvmljVksd Asaad Other [employer] Other Start: 76-38-0948Rklyjcqvq encounterImasonia TreadwellFPG Referral CoordinatorStart: 08-18-2023 End: 15-94-0612wrmsqbtwisEpwwd Kuns Other [employer] Other Start: 51-80-6543Ngfeabfax encounterCharan Waters Family Medicine [place]Start: 08-17-2023 End: 99-36-3054nkwputbmjaKzflcx Felter Other [employer] Other Start: 26-32-6801Zecjfc outpatient visit 25 minutes Blas Berger Pain Management [place]Start: 08-17-2023 End: 28-38-4095Hsldoyw encounter procedureDO Charan Casey Work Phone: [facility] [place] [facility] Start: 44-22-0146Acjxqf outpatient visit 15 minutesDale BraunTennova Healthcare Cleveland NeurosurgeryStart: 08-11-2023 End: 53-72-2478gvehothtewCL Charan Casey Work Phone: [facility] Work Phone: Start: 08-11-2023 End: 29-80-8801Fjamxki encounter procedureDO Charan Casey Work Phone: [facility]trStart: 08-05-2023 End: 14-66-1730niikcyhnxjDcuex Kuns Other [employer] Other Start: 37-52-8905Kqwxsm outpatient visit 25 minutes Charan Waters [facility] [place]Start: 07-02-2023 End: 74-75-4588jlyydihomcGcspc Kuns Other [employer] Other Start: 34-82-2570Ptcqacabt encounterBryheather Waters Family Medicine [place]Start: 06-08-2023 End: 43-32-4353bqxouuddhqAM Charan Masseybryn Work Phone: [facility] Work Phone: Start: 06-08-2023 End: 79-92-7295Sbpepdfzya RecurringDO Charan Casey Work Phone: [facility]-Physical [facility] Hospitaltart: 05-28-2023 End: 77-61-1156uueaboipscEcab Fitt Other [employer] Other Start: 83-13-5737Hbsuagbf care educationDawn Christophet [facility] Hospitaltart: 84-93-9760Vpijrzdcyr RecurringDO Charan Casey Work Phone: [facility]-Diabetes Care Center Work Phone: Start: 97-49-5351Welqbi outpatient visit 25 minutes Charan Waters [facility] [place]Start: 05-19-2023 End: 15-45-9466jkzullylouIA Charan Casey Work Phone: [facility] Work Phone: Start: 05-19-2023 End: 67-96-7109Tgtjtkf encounter procedureDO Charan Casey Work Phone: [facility]trStart: 05-05-2023 End: 59-06-1876ruwylwzvfzFwgzh Kuns Other [employer] Other Start: 10-45-1591Apkmcuylr encounterBryheather DelarosaG Family Medicine CastaliaStart: 64-27-7933Azgrip outpatient visit 25 minutesBryheather Caesy Work Phone: [phone]-Qvoc[address] Work Phone: Start: 07-60-9347ctuvecjrreEbDerek Casey Facility:[id number]: 04-13-2023 End: 44-88-7456iovkxhxsxdVKREP D [facility] HOSPITALFacility:B1Hfjeu: 04-07-2023 End: 45-57-4491kbknltqcrhVHFLEG R [facility]ST CAMPUSFacility:S1Dkpjl: 37-90-5863Qawgmuclu for preprocedural laboratory examinationPETER D [facility] Start: 04-06-2023 End: 63-43-9597bvxqgpitreQfakc Kuns Other [employer] Other Start: 16-89-5615Rwtyeknig encounterBryheather DelarosaG Family Medicine [place]Start: 40-11-2752Icrptc outpatient visit 25 minutesCharan DelarosaG Family [facility] [place]Start: 03-31-2023 End: 01-18-8597crjyhacepoVHOQI D [facility] [employer] Other Start: 03-31-2023 End: 95-09-2545Rtfozhdtm for preprocedural laboratory examinationPETER Sonia CASTROFacility:H0Dqbst: 03-26-2023 End: 21-84-6657kyyehuhsqfPhfll Kuns Other [facility] [employer] Other Start: 86-87-5062Fuyjbjfep encounterCharan DelarosaG Family Medicine [place]Start: 03-23-2023 End: 89-43-9815qryvemvsvjCVQFDE R ZIEBERFacility:S1Pnbyb: 03-10-2023 End: 80-94-2425cnxmpdgnopDgggo Sole Other [facility] [employer] Other Start: 41-42-3490Lhxngg outpatient visit 25 minutes Elpidio QadirFPG NephrologyStart: 03-06-2023 End: 41-68-1302nvxebbbaezTV Charan Casey Work Phone: [facility] Work Phone: Start: 03-06-2023 End: 71-65-2706Wlwjdgh encounter procedureDO Charan Casey Work Phone: [facility]-Lab [facility] Hospitaltart: 36-20-6230Pfcqbl outpatient visit 15 minutesChristopher [facility]tr SouthStart: 60-29-2726Babstqjds encounterCharan ODOM Family [facility] [place]Start: 03-04-2023 End: 88-93-5605pdywpkmrjtIL Charan Casey Work Phone: [place] [employer] Other Start: 03-04-2023 End: 24-24-9201Kwmswnr encounter procedureDO Charan Casey Work Phone: [facility]-Sleep Lab Work Phone: Start: 03-03-2023 End: 90-79-5291elomgqhwpfCUEIPB R ZIEBERFacility:M7Vpnyp: 02-17-2023 End: 91-75-4281lnihqtslygRZOUW V WESTFacility:S7Cgknz: 02-16-2023 End: 86-98-2718prysasygddPsnxc Kuns Other noVe[employer]arch [employer] Other Start: 28-01-8764Kdbtzayjo encounterBryheather DelarosaG Family [facility] [place]Start: 02-05-2023 End: 84-83-2895kaukxtfqfoJgwzs Kuns Other [facility] [employer] Other Start: 94-92-2550Rpqrnnakl encounterBryheather Waters Family [facility] CastaliaStart: 02-03-2023 End: 68-76-9824eocyqwbhotQBAVK V WESTFacility:V0Ycefl: 01-27-2023 End: 69-00-7443Yxasnga encounter procedureDO Charan Casey Work Phone: [facility]-Center for Coordinated Care Work Phone: Start: 01-27-2023 End: 91-44-4847cslirauwuxDK Bryan Kuns Work Phone: [facility] Work Phone: Start: 07-12-7607Opkkxs Injection one Vaccine (Admin Chg)[facility] Coordinated Care ClinicStart: 01-20-2023 End: 30-64-8745gmbmojfjwnKXQENT R ZIEBERFacility:V6Dughq: 01-19-2023 End: 19-90-2697igamxkmklxDkbop Kuns Other [facility] [employer] Other Start: 72-84-0547Jbxpnuqdz encounterYeisonheather DelarosaG Family [facility] [place]Start: 12-29-2022 End: 54-28-0541jbibsdbwffKTWQOD R ZIEBERFacility:U6Ltgmr: 08-03-1748Hkpzngvkt for preprocedural cardiovascular examinationPETER D [facility] HospitalStart: 12-66-7415Gewctxxml for preprocedural laboratory examinationPETER D [facility] HospitalStart: 12-23-2022 End: 28-18-0113ocfxkwjnueOMUJT D [facility]OSPITALFacility:J1Mfdrf: 12-23-2022 End: 58-61-2300Clpppeznx for preprocedural cardiovascular examinationPETER D [facility] HOSPITALFacility:B6Rcbij: 11-26-2022 End: 43-34-5798dnvshhmwjwHSGVQ V WESTFacility:C4Pqsmo: 11-12-2022 End: 90-28-9932gfmwrsxlqnESXOGE R SHAKIRAERFacility:H4Cchcq: 57-17-6497cxxezswcrg Dr. Charan CaseyFacility:01676Cnwwm: 10-28-2022([facility] FCC Injection [facility]ud [facility] Coordinated Care ClinicStart: 10-28-2022 End: 08-49-3872gnttxtynwzUC Bryan Kuns Work Phone: [facility] Work Phone: Start: 10-28-2022 End: 46-27-3945Yynlrry encounter procedureDO Charan Casey Work Phone: [facility]-[place] for Coordinated CareStart: 10-16-2022([facility] Vac) [facility] Covid VaccineDaCommunity Hospital Coordinated Care ClinicStart: 10-16-2022([facility] InjectionDawn [facility] Coordinated Care ClinicStart: 68-59-3090Gzfoyxbrl encounterAbdul Sole [facility] NephrologyStart: 10-16-2022 End: 48-57-4588gkyvntgefxTR Bryan Kuns Work Phone: [place] [employer] Other Start: 10-16-2022 End: 87-59-3158Smlecvj encounter procedureDO Charan Casey Work Phone: [facility]-Center for Coordinated CareStart: 10-15-2022 End: 57-96-3224tdiaevipxeOH Charan Casey Work Phone: [facility] Work Phone: Start: 10-15-2022 End: 34-08-1809Mcomuit encounter procedureDO Charan Casey Work Phone: [facility]-MRI Str[address] RdStart: 10-13-2022 End: 62-41-7945uiauizvosiIP Charan Casey Work Phone: [facility] Work Phone: Start: 10-13-2022 End: 82-11-6008Calkmnh encounter procedureDO Charan Casey Work Phone: [facility]-MRI [address] RdStart: 09-24-2022 End: 65-29-6957rfenqphjolUlkxj Sole Other [employer] Other Start: 12-94-8470Xzihbw outpatient visit 25 minutes Elpidiorohan [facility] DallasStart: 09-02-2022 End: 10-10-0535keovgxrjjrUfvtm Kuns Other [employer] Other Start: 73-58-7085Csrgqc outpatient visit 25 minutes Charan [facility] [place]Start: 08-13-2022 End: 10-29-6806Gordilg encounter procedureDO Charan Casey Work Phone: [facility]-Lab [facility] Hospitaltart: 08-07-2022 End: 16-77-6032zqqibzyiasUwgps Kuns Other [employer] Other Start: 46-75-7183Mbwvdrkle encounterCharan Waters [facility] [place]Start: 07-27-2022 End: 72-12-7601Fqrxxwrqd department patient visitDO Charan Casey Work Phone: [facility]-Emergency RoomStart: 07-16-2022 End: 71-40-2327zgdefbavboAdcia Kuns Other [facility] [employer] Other Start: 91-61-8855Agzzudwer encounterBryheather Waters [facility] [place]aliaStart: 07-02-2022 End: 76-66-8066vkvknenpeeLxxwj Kuns Other [facility] [employer] Other Start: 26-84-3172Dwcyimbrd encounterCharan DelarosaG Family [facility] [place]Start: 00-42-3798Xlqdzt outpatient visit 25 minutesCharan Casey Work Phone: [phone]-[facility] 250 DO Work Phone: Start: 04-30-2022 End: 89-51-4647qqtzontmylOcdhelffbls Coco Other [facility] [employer] Other Start: 95-07-8064Bywzld outpatient visit 10 minutes [facility]ico [facility] SouthStart: 04-14-2022 End: 03-81-9232tnnvnqdagcWwrfk Kuns Other [facility] [employer] Other Start: 52-59-5760Pxorrz outpatient visit 25 minutes [facility] [place]Start: 04-07-2022 End: 68-27-8374bqyppswhlkNmzmj Kuns Other [facility] [employer] Other Start: 61-51-9428Ssxmypqrv encounterCharan Waters [facility] [place]Start: 04-02-2022 End: 72-28-7366pcqfwckrkaVgcus Kuns Other [facility] [employer] Other Start: 04-67-5426Cqochnpgq encounterCharan WashingtonG Family Medicine [place]Start: 03-31-2022 End: 97-51-9407qeysuinlefJdbhh Kuns Other [facility] [employer] Other Start: 62-19-5186Vbcfbzzwu encounterBryheather WashingtonG Family Medicine [place]aliaStart: 95-06-7092UCBJVJLOY, Provider: Rosalinda Torres, Status: Pen, Time: 1:00 PMCharan Masseys Work Phone: [phone]-ZsbfjTyler Hospital 250 DO Work Phone: Start: 45-28-8930Gyhce UpdateCharan Louise Kuns Work Phone: [phone]-VkqnnSt. Cloud HospitalOklahoma City 250 DO Work Phone: Start: 03-13-2022 End: 57-72-9950qaehtdqcjbTqhxg Kuns Other [facility] [employer] Other Start: 19-90-7890Mlbnoxopi encounterCharan WashingtonG Family Medicine [place]Start: 25-41-9838Plvic UpdateCharan P Kuns Work Phone: [phone]-EfbmjSt. Cloud HospitalOklahoma City 250 DO Work Phone: Start: 03-07-2022 End: 82-94-4940crugwqhraqAmmp Fitt Other [facility] [employer] Other Start: 83-32-4077Rdixqffyo encounterDapauline Angelo [facility] ClinicStart: 03-04-2022 End: 93-55-3075rxrvmvfsjbArkgs Kuns Other [facility] [employer] Other Start: 30-90-2169Nnxupbhgq encounterBryheather CaseyFPG [facility] CareStart: 02-20-2022 End: 04-49-3888dnksgqyevpZyldw Sole Other [employer]arch [employer] Other Start: 61-94-7278Fwxzaa outpatient visit 25 minutes Elpidio QadirFPG NephrologyStart: 02-10-2022 End: 49-56-6955waondkswzaXmafk Kuns Other [facility] [employer] Other Start: 57-33-3274Wbuuelucj encounterBryheather CaseyFPG Family Medicine [place]Start: 02-07-2022 End: 23-49-2103rzsobululrCzqut Kuns Other [facility] [employer] Other Start: 38-97-7731Gmokcn outpatient visit 25 minutes Charan CaseyFPG Family Medicine [place]Start: 02-05-2022 End: 17-22-1032osisymwffpMzuhi Kuns Other [employer] Other Start: 55-78-5787Kmxztqtsv encounterBryheather MasseysFPG Family Medicine [place]Start: 01-21-2022 End: 71-89-8240iwlqamlplsWdecm Kuns Other [facility] [employer] Other Start: 43-25-4469Bsarvkuin encounterBryheather MasseysFPG Family Medicine [place]Start: 12-31-2021 End: 73-52-1299ynqbgxroepSkuk Chatterjee Other [employer] Other start: 07-65-1537Xwvdoi outpatient visit 15 minutes Thierno [facility] NeurosurgeryStart: 12-07-2021 End: 10-67-5735qymrlpniqtMufoi Kuns Other [facility] [employer] Other Start: 13-19-7388Ggexdmbna encounterCharan Waters [facility] [place]Start: 12-06-2021 End: 13-76-8711bvsytgojwoJxkvb Kuns Other [employer] Other Start: 70-62-3677Tzpikpsiw encounterCharan MasseybrynERICRuthie [facility] CareStart: 12-03-2021 End: 89-44-4377vmfornkairTycsb Kuns Other [place] [employer] Other Start: 47-12-4552Fbeegb outpatient visit 15 minutes Charan Waters [facility] [place]Start: 10-01-2021 End: 83-97-6667sfisbvchogOelsvh Felter Other [facility] [employer] Other Start: 93-94-1661Pvrxcc outpatient visit 25 minutes Blas [facility] [place] End: 16-46-2864Trdrkbd encounter statusCharan Dani Casey Work Phone: [phone]-Uxjkl [facility] 250 DO Work Phone: Procedures DateProcedureProcedure DetailPerforming ClinicianStart: 66-07-7003Pdlbnegv Identification OnlyBryheather Masseys DO Work Phone: Start: 99-07-0947W-ray of both feetCharan Masseys DO Work Phone: Start: 42-54-8496Vkevjocqyg glycosylated q3oRxdatmq M Petsebastian DO Work Phone: Start: 91-93-7445WAG of right shoulderYeisonheather Brysons DO Work Phone: Start: 52-88-9012EMA (POC)Charanheather Casey DO Work Phone: Start: 29-54-3662Gscnj chest X-rayYeisonan Kuns DO Work Phone: Start: 68-81-5627Ubwwf anesthetic lumbar facet joint nerve blockCharan Casey DO Work Phone: Start: 66-42-6016Rjkev X-ray of right shoulderCharan Casey DO Work Phone: Start: 47-26-9043Lymrbsiqcy glycosylated g2aDhecaoh Carmen Munroe DO Work Phone: Start: 52-46-5191Tcfpq anesthetic sacral epidural blockDO Charan Casey Work Phone: Start: 57-59-9108Ezpubmism mammography of bilateral breastsDO Charan Casey Work Phone: Start: 60-40-7108Ylsgxmrfv of local anesthetic into sacroiliac jointDO Charan Casey Work Phone: Start: 06-94-6360EUK of lumbar spine with contrastDO Charan Casey Work Phone: Start: 86-08-9819Vamms cultureDO Charan Casey Work Phone: Start: 31-98-4077Xknew chest X-rayDO Charan Casey Work Phone: Start: 21-29-6219Iozawwp of placement of stent for coronary artery disease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Rosalinda Torres MD Work Phone: Start: 40-21-8510Zwnkpxg of cholecystectomyS/P laparoscopic cholecystectomyAlllucia Munroe DO Work Phone: Start: 79-51-6236Hfetgstij colonoscopyDO Charan Casey Work Phone: Start: 36-31-9676ExsyusrrlgnPqfewa Ibrahim MD Work Phone: Start: 07-33-9190Hrhbqvphb of local anesthetic into sacroiliac jointDO Charan Casey Work Phone: Start: 08-40-0751Gwdfu X-ray of right hipDO Charan Casey Work Phone: Start: 70-98-7197R-ray of lumbar spine, six views including bending viewsDO Charan Casey Work Phone: Start: 43-14-2867Jtxbg chest X-rayDO Charan Casey Work Phone: Start: 85-66-9646Lwtgzftyfjz of thoracic spineDO Charan Casey Work Phone: Start: 30-69-2202T-ray of lumbar spine, four or more viewsDO Charan Casey Work Phone: Start: 12-74-2759Utgtq cultureDO Charan Casey Work Phone: Start: 15-44-2843FHD of right ankleDO Charan Casey Work Phone: Start: 75-20-0314OAB of right footDO Charan Casey Work Phone: Start: 99-58-8917GUN of left ankleDO Charan Casey Work Phone: Start: 37-15-4782UVH of left footDO Charan Casey Work Phone: Start: 04-70-7609TY of bilateral feetDO Charan Casey Work Phone: Start: 61-73-0464Vodqy volume recorder pneumoplethysmographyDO Charan Casey Work Phone: Start: 95-66-0964B-ray of left footDO Charan Casey Work Phone: Arthroplasty of kneeCharan Casey Work Phone: Cardiac catheterizationYeisonan P Brysons Work Phone: Cesarean sectionYeisonan P Brysons Work Phone: CholecystectomyCharan P Brysons Work Phone: History of placement of stent for coronary artery disease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Bryan P [employer] Work Phone: Comment on above:February 2022;History of placement of stent for coronary artery disease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Rosalinda Torres MD Work Phone: History of placement of stent for coronary artery disease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Rosalinda Torres MD Work Phone: Operative procedure on ankleBryan P [employer] Work Phone: Operative procedure on footBryan P [employer] Work Phone: ParathyroidectomyBryan P [employer] Work Phone: Procedure on backBryan P [employer] Work Phone: Procedure on neckBryan P [employer] Work Phone: Total colonoscopyBryan P [employer] Work Phone: Comment on above:30Nov2018; Plan of Treatment DateCare ActivityDetailAuthorStart: 61-15-6328Niwudxktc for malignant neoplasm of colonTriHealth [facility]: 58-14-3960Prvmomktkado Vaccine: Pediatrics (0 to 5 Years) and At-Risk Patients (6 to 64 Years) (3 - PPSV23 or PCV20)Pneumococcal Vaccine: Pediatrics (0 to 5 Years) and At-Risk Patients (6 to 64 Years) (3 - PPSV23 orPCV20)[facility]: 47-67-5317Kwgtwzqezkvi Vaccine: Pediatrics (0 to 5 Years) and At-Risk Patients (6 to 64 Years) (3 of 3 - PPSV23 or PCV20)Pneumococcal Vaccine: Pediatrics (0 to 5 Years) and At-Risk Patients (6 to 64 Years) (3 of 3 - PPSV23 or PCV20) [facility]: 10-24-2025 End: 44-80-2498Fqqvnob encounter pdqqcaovt93/25/2025 10:30 AM EST Office Visit [facility] [address] [place] [address] Shaina Munroe, DO [address] [place] [address] [facility] 230 Start: 95-33-8752Deordfho screeningDiabetes: Retinopathy ScreeningNOSD HealthcareStart: 08-15-2025 End: 85-79-4173Bydexzm encounter procedureNOMS [facility] 230Start: 79-60-6400JPZSB- 19 Vaccine ( season)COVID-19 Vaccine ( season)[facility] HealthcareStart: 56-49-0367Jyvsuauwf vaccinationRIVERTON HOSPITAL HealthcareStart: 07-27-2025 End: 11-40-1512Pauqypr encounter auccqcvdn04/28/2025 8:15 AM EDT [facility] [address] [place] [address] Shaina Munroe, DO [address] [place] [address] [facility]EC[facility] 230Comment on above:ArrivedStart: 03-28-2025 End: 05-00-3423Fpifheb encounter fmfzfluha07/29/2025 8:50 AM EDT Office Visit [place] [address] [facility] [address] [place] [address] Rosalinda Torres MD [address] [facility] [address] [place] [address] [facility]: 02-14-2025 End: 09-52-9796Nowsoua encounter sapakrpdd33/18/2025 9:30 AM EDT Office Visit [facility] [address] [place] [phone] Shaina Munroe, DO [address] [place] [address] [facility] 230Start: 64-13-0355TB Shoulder - right WO contrastUniversity Hospitals Geauga Medical Centertart: 03-28-2234UHG of right shoulder MR shoulder RT wo [facility]tart: 01-17-2025 Hemoglobin A1c measurementDiabetes: Hemoglobin I1DDSCU HealthcareStart: 20-92-4042WllmkbbgdUniversity Hospitals Geauga Medical Centertart: 50-41-5345EfqqjpsotUniversity Hospitals Geauga Medical Centertart: 08-25-2024 End: 90-36-4768Acbqfbw encounter ioezhmmgz57/26/2024 8:40 AM EDT Office Visit [place] [address] [facility] [address] [place] [address] Rosalinda Torres MD [address] [facility] [address] [place] [address] [facility]Start: 79-01-9832KKGFY-19 Vaccine ()COVID-19 Vaccine ()[facility] Start: 96-31-3254Eshspuamd vaccinationInfluenza Vaccine (#1)[facility] Start: 00-87-0191RwolklirmUniversity Hospitals Geauga Medical Centertart: 49-08-6146Qfzrinbe identified in Urine by CultureUniversity Hospitals Geauga Medical Centertart: 02-29-2024 Urine cultureUrine CultureUniversity Hospitals Geauga Medical Centertart: 85-47-6685VJS, Provider: Rosalinda Torres, Status: Pen, Time: 9:10 AMFUV, Provider: Rosalinda Torres, Status: Pen, Time: 9:10 AMMP-[facility] 250 DO Work Phone: Start: 45-47-3198ZzgnreidqGerman Hospital Start: 71-83-2205DwjghuodcUniversity Hospitals Geauga Medical Centertart: 39-79-2474AXEID-19 Vaccine ( season)COVID-19 Vaccine ()[facility] HospitalStart: 86-30-6952Vpgonbmwj vaccinationInfluenza Vaccine (#1)[facility] Centerart: 64-66-4664Fjypunef identified in Urine by CultureUniversity Hospitals Geauga Medical Centertart: 55-70-2897PZP, Provider: Rosalinda Torres, Status: Pen, Time: 9:00 AMFUV, Provider: Rosalinda Torres, Status: Pen, Time: 9:00 AMMP-[facility] [place] 250 DO Work Phone: Start: 40-19-8380KRsB/Tdap/Td Vaccines (2 - Td or Tdap)DTaP/Tdap/Td Vaccines (2 - Td or Tdap)[facility] Start: 05-89-7576THJUDOWUT, Provider: Rosalinda Torres, Status: Pen, Time: 1:00 PM SURGNONUH, Provider: Rosalinda Torres, Status: Pen, Time: 1:00 PMMP-[facility] [place] 250 DO Work Phone: Start: 68-75-6688UJG, Provider: Rosalinda Torres, Status: Pen, Time: 1:50 PMFUV, Provider: Rosalinda Torres, Status: Pen, Time: 1:50 PMMP-[facility] [place] 250 DO Work Phone: Start: 27-50-0045QOP patients and/or patients aged 60+ years (1 - 1-dose 60+ series)RSV patients and/or patients aged 60+ years (1 - 1-dose 60+ series)[facility] HospitalStmiddletown: 94-61-0355Ukoodgokl for malignant neoplasm of breastMammogramUnWhite Hospital: 98-78-9651Laykvfiqh for malignant neoplasm of cervixNOMS HealthcareStart: 44-94-1601NMbJ/Tdap/Td Vaccines (1 - Tdap) DTaP/Tdap/Td Vaccines (1 - Tdap)[facility] HospitalStmiddletown: 51-42-9746Gkznqpghe for malignant neoplasm of cervixUnAvita Health System Galion HospitalStmiddletown: 06-63-1245Yshwy screening for proteinDiabetes: Urine Protein ScreeningTriHealth Bethesda North Hospital: 82-81-4422Lzawiedhm C screening Hepatitis C ScreeningTriHealth Bethesda North Hospital: 57-75-8751Omvdztpq foot examinationDiabetes: Foot ExamUnWhite Hospital: 75-41-1418Sawfwxfa screeningDiabetes: Retinopathy ScreeningTriHealth [facility]hes[facility] Hospital: 46-35-9804MBH Vaccines (1 of 1 - Standard series)MMR Vaccines (1 of 1 - Standard series)[facility]: 1960 Hemoglobin A1c measurementDiabetes: Hemoglobin Y2UYjhywahgziWhite Hospital: 05-15-5932FZI screeningHIV ScreeningTriHealth [facility]hes[facility]: 23-34-1612Wxjwr panelLipid PanelUnWhite Hospital: 1960Medicare Annual Wellness (AWV)Medicare Annual Wellness (AWV)NOM HealthcareStart: 1960Medicare Annual Wellness VisitMedicare Annual Wellness Visit (AWV)[facility]: 1960 Screening for malignant neoplasm of colonUnWhite Hospital: 39-57-9148Zjcfcc Adult PhysicalYearly Adult PhysicalUnAvita Health System Galion HospitalComprehensive metabolic 2000 panel - Serum or PlasmaGerman HospitalMR Lumbar spine WO and W contrast [facility] CampusMR Shoulder - right WO contrastGerman HospitalPatient EducationMercy Health St[facility] Work Phone: Patient referralMercy Health St[facility] Work Phone: Renal function 1999 panel - Serum or PlasmaGerman HospitalRheumatoid factor [Units/volume] in Serum or Plasma [facility] Immunizations Immunization DateImmunizationNotesCare McjejggiXufsgsyl66-55-9809imflus vaccine recombinantDawn Fitt Other [facility]11-29-2022zoster vaccine recombinantAaron LePoire Other [facility]11-17-2022influenza virus vaccine, unspecified formulationDO Charan Casey Work Phone: [facility]11-17-2022influenza, seasonal, injectableRosalinda Torres MD Work Phone: [facility] Work Phone: [phone] SARS-CoV-2 VaccinationRosalinda Torres MD Work Phone: [facility] Work Phone: [phone]-71 Moderna (BIvalent)Renée Fitt Other [facility]11-17-2022influenza, high dose seasonal, preservative-freeDawn Fitt Other [employer] Other [id number], injectable, quadrivalent, preservative freeDawn Fitt Other [employer] Other [id number] COVID-19 Vaccine 100 MCG/0.5ML Intramuscular SuspensionBryheather P [employer] Work Phone: [facility]10-27-2021Moderna SARS-CoV-2 Booster VaccinationFahadlucia Munroe DO Work Phone: [facility] CenterBvlxzfbqje37-42-7488ruadadjc influenza, intradermal, preservative freeBryheather P [employer] Work Phone: [phone]-AziuvGlacial Ridge Hospital 250 DO Work Phone: [phone]-82 Vaccine Moderna - Documentation Purposes OnlyThomas Erastoer Other [facility]12-30-2020Moderna COVID-19 Vaccine 100 MCG/0.5ML Intramuscular SuspensionBryan P Kuns Work Phone: [facility]10-01-2019influenza virus vaccine, unspecified formulationBryan P [employer] Work Phone: [phone]-RntksGlacial Ridge Hospital 250 DO Work Phone: [phone], injectable, quadrivalent, preservative freeAllison Petznick DO Work Phone: noRusk [facility] CenterKoppmmeadn40-83-5590anepuaqmn, seasonal, injectableThomas Felter Other [facility]10-01-2018influenza, seasonal, injectableThomas Felter Other [facility]10-01-2018influenza, seasonal, injectable, preservative freeAllison Petznick DO Work Phone: noRusk [facility] CenterMurlpeyyhj93-35-7978fdvpnkhbt virus vaccine, unspecified formulationDO Charan Casey Work Phone: [facility]01-03-2017influenza, seasonal, injectable, preservative freeBryan P Kuns Work Phone: [phone][place] [address] DO Work Phone: [phone]) 280-455201794986-07-6961ocgqcrjkvmxw conjugate vaccine, 13 valent Blas Felter Other [facility]01-03-2017influenza, high dose seasonal, preservative-freeThomas Felter Other [employer] Other [id number], injectable, quadrivalent, preservative freeDawn Fitt Other [employer] Other 01058434-13-0969sabxtcxxfxxn polysaccharide vaccine, 23 valentBryan P Kuns Work Phone: [phone][facility] 250 DO Work Phone: [phone]gpqy polysaccharide vaccine, 23 valentBryan P Kuns Work Phone: [facility]10-10-2012influenza virus vaccine, unspecified formulationDO Charan Casey Work Phone: [facility]10-10-2012tetanus toxoid, reduced diphtheria toxoid, and acellular pertussis vaccine, adsorbed Blas Ortiz Other [facility]10-10-2012influenza virus vaccine, split virus (incl. purified surface antigen)Blas Ortiz Other [employer] Other influenza virus vaccine, unspecified formulationCharan Casey Work Phone: [phone]-[facility]omT[facility] 250 DO Work Phone: Comment on above:2009NEGATED: Highlighted row has not occurred!21-30-6498lorbdjzbh, injectable,quadrivalent, preservative free, pediatricThomas Diana Other [employer] Other Payers DatePayer CategoryPayerPolicy [id number] 2024MedicareUNITED HEALTHCARE MEDICARE UNITED HEALTHCARE MEDICARE [id number] 2024-Present [id number] [place], [place] [id number] 2024Medicare (Managed Care)[id number] [id number] 2.16.840.1.668086.3.57[id number] 2.16.840.1.466530.3.57[id number] 2.16.840.1.948432.3.57[id number] 2.16.840.1.707923.3.57[id number] 2.16.840.1.582447.3.57[id number] 2.16.840.1.538812.3.579.[id number] 2.16.840.1.064964.3.57[id number] 2.16.840.1.123959.3.579.2.95750-55-1647Zrjlkmc3890012 2.16.840.1.740166.3.579.[id number] 2.16.840.1.774962.3.57[id number] 2.16.840.1.089125.3.579.[id number] 2.16.840.1.031639.3.57[id number] 2.16.840.1.124621.3.579.[id number] 2.16.840.1.995091.3.57[id number] 2.16.840.1.798178.3.57[id number] 2.16.840.1.852136.3.579.2.015239-71-7582Yfdmquj69474818 2.16.840.1.671737.3.579.2.8220 [id number] 2..0.1.389207.3.57[id number] 2.16.840.1.406288.3.579.2.42[id number] 2.0.1.280513.19 [id number] Pay [id number] Social History DateTypeDetailFacilityStart: 12-04-2023 End: 95-12-4655Ikeethrmao caffeine consumptionOccasional caffeine consumption [facility] HealthcareComment on above:Coffee;Start: 12-04-2023 End: 26-79-9955Hqb Assigned At [facility] HealthcareStart: 07-27-2022 End: 88-09-7536Kvikzkx smoking status NHISNever smoked tobacco (finding) [facility] Centertart: 57-81-2999Xzv [facility]igned At [facility]FeCos[facility] Centertart: 05-19-2023 End: 92-62-9035Dhcnphm use and exposureSmokeless tobacco non-userGeorgetown Behavioral Hospital Work Phone: Start: 12-04-2023 End: 07-77-5604Sbthwnf intakeLifetime non-drinker (finding)[facility] Work Phone: Start: 27-53-8928Bma Assigned At BirthNot on file [facility] Work Phone: Start: 02-12-2024 End: 32-69-8711Vmlugcec to SARS-CoV-2 (event)Not sureUnAvita Health System Galion HospitalStart: 10-19-2024 End: 99-56-0556KkhLamcih (finding)[facility] HospitalDo you belong to any clubs or organizations such as episcopal groups, unions, fraternal or athletic groups, or school groups?YesNOMS HealthcareAre you now , , , , never or living with a partner?MarriedNOMS HealthcareHow often to you have a drink containing alcohol?NeverNOMS Healthcare Start: 00-70-5058Ace many standard drinks containing alcohol do you [...] 05-20-2023 Gender identityIdentifies as female gender (finding)[facility] Equipment Procedure CodeEquipment CodeEquipment Original TextEquipment IdentifierDates Fusion, spine, lumbar, XLIFLATERAL STD 1 LEVEL CONSTRUCTFDAStart: 07-25-2020 Fusion, spine, lumbar, XLIFOrthopaedic bone screw, non-bioabsorbable, non-sterile+[id number] FDAStart: 59-34-8989Idbzaj, spine, lumbar, XLIFBone- screw internal spinal fixation system, non-sterile+[id number] FDAStart: 74-28-9514Jxdtng, spine, lumbar, XLIFSTRATOFUSE DBM 10CCFDAStart: 07-25-2020 Fusion, spine, lumbar, XLIFTIMBERLINE INTERBODYFDAStart: 48-33-7037Cdfubh, spine, lumbar, XLIFSpinal fusion graft kit ()[id number] FDAStart: 03-76-4739Gnleyf, spine, lumbar, XLIFBone-screw internal spinal fixation system, non-sterile+[id number] FDAStart: 58-91-0678Mizscg, spine, lumbar, XLIFLATERAL STD 1 LEVEL CONSTRUCTFDA Start: 09-35-4479Ynokok, spine, lumbar, XLIFSTRATOFUSE DBM 10CCFDAStart: 96-43-4646Phalfy, spine, lumbar, XLIFTIMBERLINE INTERBODYFDAStart: 07-25-2020 Fusion, spine, lumbar, XLIFLATERAL STD 1 LEVEL CONSTRUCTFDAStart: 07-25-2020 Fusion, spine, lumbar, XLIFSTRATOFUSE DBM 10CCFDAStart: 29-30-3165Befuvj, spine, lumbar, XLIFTIMBERLINE INTERBODYFDAStart: 69-43-0296Kjnjyw, spine, lumbar, XLIF LATERAL STD 1 LEVEL CONSTRUCTFDAStart: 96-75-0801Edajrx, spine, lumbar, XLIF STRATOFUSE DBM 10CCFDAStart: 45-08-8539Yyrfuc, spine, lumbar, XLIFTIMBERLINE INTERBODYFDAStart: 54-07-5077Ppbmjk, spine, lumbar, XLIFLATERAL STD 1 LEVEL CONSTRUCTFDAStart: 65-44-6576Babehk, spine, lumbar, XLIFSTRATOFUSE DBM 10CCFDA Start: 18-96-1326Ycyauf, spine, lumbar, XLIFTIMBERLINE INTERBODYFDAStart: 43-94-9480Xqqzfn, spine, lumbar, XLIFLATERAL STD 1 LEVEL CONSTRUCTFDAStart: 63-29-8647Nwknnn, spine, lumbar, XLIFSTRATOFUSE DBM 10CCFDAStart: 07-25-2020 Fusion, spine, lumbar, XLIFTIMBERLINE INTERBODYFDAStart: 54-10-7779Pvdbbt, spine, lumbar, XLIFLATERAL STD 1 LEVEL CONSTRUCTFDAStart: 77-79-2460Cmwxug, spine, lumbar, XLIFSTRATOFUSE DBM 10CCFDAStart: 34-84-8377Iajzdn, spine, lumbar, XLIFTIMBERLINE INTERBODYFDAStart: 89-96-6089Bdsncy, spine, lumbar, XLIFLATERAL STD 1 LEVEL CONSTRUCTFDAStart: 39-51-0672Ljaylc, spine, lumbar, XLIFSTRATOFUSE DBM 10CCFDAStart: 30-11-1849Ygbzwk, spine, lumbar, XLIFTIMBERLINE INTERBODYFDA Start: 31-25-9197Uypxar, spine, lumbar, XLIFLATERAL STD 1 LEVEL CONSTRUCTFDA Start: 40-25-5437Hznzwh, spine, lumbar, XLIFSTRATOFUSE DBM 10CCFDAStart: 03-52-2062Cxnyjn, spine, lumbar, XLIFTIMBERLINE INTERBODYFDAStart: 07-25-2020 Fusion, spine, lumbar, XLIFLATERAL STD 1 LEVEL CONSTRUCTFDAStart: 07-25-2020 Fusion, spine, lumbar, XLIFSTRATOFUSE DBM 10CCFDAStart: 46-16-6611Rbnyyz, spine, lumbar, XLIFTIMBERLINE INTERBODYFDAStart: 69-07-0857Mcmtau, spine, lumbar, XLIF LATERAL STD 1 LEVEL CONSTRUCTFDAStart: 24-30-3709Oylotj, spine, lumbar, XLIF STRATOFUSE DBM 10CCFDAStart: 61-52-3481Wmujyf, spine, lumbar, XLIFTIMBERLINE INTERBODYFDAStart: 53-74-5984Nmwmdi, spine, lumbar, XLIFLATERAL STD 1 LEVEL CONSTRUCTFDAStart: 45-41-7150Tzlali, spine, lumbar, XLIFSTRATOFUSE DBM 10CCFDA Start: 97-09-5017Ccnrkr, spine, lumbar, XLIFTIMBERLINE INTERBODYFDAStart: 99-31-0148Xgaats, spine, lumbar, XLIFLATERAL STD 1 LEVEL CONSTRUCTFDAStart: 96-11-8347Whlbpy, spine, lumbar, XLIFSTRATOFUSE DBM 10CCFDAStart: 07-25-2020 Fusion, spine, lumbar, XLIFTIMBERLINE INTERBODYFDAStart: 76-27-7796Uqciri, spine, lumbar, XLIFLATERAL STD 1 LEVEL CONSTRUCTFDAStart: 52-24-0506Rgzzae, spine, lumbar, XLIFSTRATOFUSE DBM 10CCFDAStart: 42-35-6833Gecwty, spine, lumbar, XLIFTIMBERLINE INTERBODYFDAStart: 60-36-3562Vskkbt, spine, lumbar, XLIFLATERAL STD 1 LEVEL CONSTRUCTFDAStart: 02-61-8130Dkmidy, spine, lumbar, XLIFSTRATOFUSE DBM 10CCFDAStart: 60-44-3810Ywsabe, spine, lumbar, XLIFTIMBERLINE INTERBODYFDA Start: 51-94-0488Rbdhic, spine, lumbar, XLIFLATERAL STD 1 LEVEL CONSTRUCTFDA Start: 04-29-9616Nueaea, spine, lumbar, XLIFSTRATOFUSE DBM 10CCFDAStart: 69-58-1249Wcbyxe, spine, lumbar, XLIFTIMBERLINE INTERBODYFDAStart: 07-25-2020 Fusion, spine, lumbar, XLIFLATERAL STD 1 LEVEL CONSTRUCTFDAStart: 07-25-2020 Fusion, spine, lumbar, XLIFSTRATOFUSE DBM 10CCFDAStart: 57-56-0110Qztlqw, spine, lumbar, XLIFTIMBERLINE INTERBODYFDAStart: 46-06-9932Ztpntn, spine, lumbar, XLIF LATERAL STD 1 LEVEL CONSTRUCTFDAStart: 96-67-7915Rmnjqa, spine, lumbar, XLIF STRATOFUSE DBM 10CCFDAStart: 42-24-7132Nyffqx, spine, lumbar, XLIFTIMBERLINE INTERBODYFDAStart: 51-44-6236Cprvjm, spine, lumbar, XLIFLATERAL STD 1 LEVEL CONSTRUCTFDAStart: 05-20-6139Blyybg, spine, lumbar, XLIFSTRATOFUSE DBM 10CCFDA Start: 38-09-5953Sbnfko, spine, lumbar, XLIFTIMBERLINE INTERBODYFDAStart: 32-16-2580Hjkanb, spine, lumbar, XLIFLATERAL STD 1 LEVEL CONSTRUCTFDAStart: 57-12-5241Rkdimi, spine, lumbar, XLIFSTRATOFUSE DBM 10CCFDAStart: 07-25-2020 Fusion, spine, lumbar, XLIFTIMBERLINE INTERBODYFDAStart: 07-58-9375Qpqjzp, spine, lumbar, XLIFLATERAL STD 1 LEVEL CONSTRUCTFDAStart: 81-92-8430Mswsnc, spine, lumbar, XLIFSTRATOFUSE DBM 10CCFDAStart: 49-72-4511Dqbxzi, spine, lumbar, XLIFTIMBERLINE INTERBODYFDAStart: 64-16-7910Filiry, spine, lumbar, XLIFLATERAL STD 1 LEVEL CONSTRUCTFDAStart: 77-12-7168Twvyzv, spine, lumbar, XLIFSTRATOFUSE DBM 10CCFDAStart: 34-37-3249Hzzomn, spine, lumbar, XLIFTIMBERLINE INTERBODYFDA Start: 33-34-5926Roeztj, spine, lumbar, XLIFLATERAL STD 1 LEVEL CONSTRUCTFDA Start: 02-24-8813Yzlcbe, spine, lumbar, XLIFSTRATOFUSE DBM 10CCFDAStart: 71-32-9092Pttjbl, spine, lumbar, XLIFTIMBERLINE INTERBODYFDAStart: 07-25-2020 Fusion, spine, lumbar, XLIFLATERAL STD 1 LEVEL CONSTRUCTFDAStart: 07-25-2020 Fusion, spine, lumbar, XLIFSTRATOFUSE DBM 10CCFDAStart: 46-83-6650Hnbdia, spine, lumbar, XLIFTIMBERLINE INTERBODYFDAStart: 92-25-4793Vbftii, spine, lumbar, XLIF LATERAL STD 1 LEVEL CONSTRUCTFDAStart: 66-52-9189Hsxhau, spine, lumbar, XLIF STRATOFUSE DBM 10CCFDAStart: 93-01-9529Zqvkbi, spine, lumbar, XLIFTIMBERLINE INTERBODYFDAStart: 81-75-7965Uridpe, spine, lumbar, XLIFLATERAL STD 1 LEVEL CONSTRUCTFDAStart: 29-89-3740Yzulsv, spine, lumbar, XLIFSTRATOFUSE DBM 10CCFDA Start: 47-49-0839Jpfvgp, spine, lumbar, XLIFTIMBERLINE INTERBODYFDAStart: 56-83-1833Qubqhb, spine, lumbar, XLIFLATERAL STD 1 LEVEL CONSTRUCTFDAStart: 19-33-5223Hvogie, spine, lumbar, XLIFSTRATOFUSE DBM 10CCFDAStart: 07-25-2020 Fusion, spine, lumbar, XLIFTIMBERLINE INTERBODYFDAStart: 76-88-3873Iwheea, spine, lumbar, XLIFLATERAL STD 1 LEVEL CONSTRUCTFDAStart: 85-22-9940Alwqjb, spine, lumbar, XLIFSTRATOFUSE DBM 10CCFDAStart: 98-69-0859Ikmqxf, spine, lumbar, XLIFTIMBERLINE INTERBODYFDAStart: 50-83-4857Sbegmx, spine, lumbar, XLIFLATERAL STD 1 LEVEL CONSTRUCTFDAStart: 51-21-9209Qmrnde, spine, lumbar, XLIFSTRATOFUSE DBM 10CCFDAStart: 77-08-9814Bdjkfs, spine, lumbar, XLIFTIMBERLINE INTERBODYFDA Start: 21-16-4280Rwyfnv, spine, lumbar, XLIFLATERAL STD 1 LEVEL CONSTRUCTFDA Start: 67-36-0478Yasoea, spine, lumbar, XLIFSTRATOFUSE DBM 10CCFDAStart: 46-81-0326Gwqkgu, spine, lumbar, XLIFTIMBERLINE INTERBODYFDAStart: 07-25-2020 Fusion, spine, lumbar, XLIFLATERAL STD 1 LEVEL CONSTRUCTFDAStart: 07-25-2020 Fusion, spine, lumbar, XLIFSTRATOFUSE DBM 10CCFDAStart: 04-46-7495Vscyqh, spine, lumbar, XLIFTIMBERLINE INTERBODYFDAStart: 60-75-2189Piwhwx, spine, lumbar, XLIF LATERAL STD 1 LEVEL CONSTRUCTFDAStart: 35-95-8290Yiqoco, spine, lumbar, XLIF STRATOFUSE DBM 10CCFDAStart: 91-83-8705Ioltrs, spine, lumbar, XLIFTIMBERLINE INTERBODYFDAStart: 29-74-3831Nwadyi, spine, lumbar, XLIFLATERAL STD 1 LEVEL CONSTRUCTFDAStart: 55-15-0031Hqhcxa, spine, lumbar, XLIFSTRATOFUSE DBM 10CCFDA Start: 00-15-9714Oscjdx, spine, lumbar, XLIFTIMBERLINE INTERBODYFDAStart: 35-42-8723Lmmgtm, spine, lumbar, XLIFLATERAL STD 1 LEVEL CONSTRUCTFDAStart: 18-08-2040Pcbvuj, spine, lumbar, XLIFSTRATOFUSE DBM 10CCFDAStart: 07-25-2020 Fusion, spine, lumbar, XLIFTIMBERLINE INTERBODYFDAStart: 59-90-4268Gqhaxh, spine, lumbar, XLIFLATERAL STD 1 LEVEL CONSTRUCTFDAStart: 20-38-5354Fqlbmw, spine, lumbar, XLIFSTRATOFUSE DBM 10CCFDAStart: 42-47-7107Yxlnsx, spine, lumbar, XLIFTIMBERLINE INTERBODYFDAStart: 32-91-3351Juagdk, spine, lumbar, XLIFLATERAL STD 1 LEVEL CONSTRUCTFDAStart: 23-09-6432Bymqyh, spine, lumbar, XLIFSTRATOFUSE DBM 10CCFDAStart: 19-54-7255Hqpetb, spine, lumbar, XLIFTIMBERLINE INTERBODYFDA Start: 47-22-3591Nwhakq, spine, lumbar, XLIFLATERAL STD 1 LEVEL CONSTRUCTFDA Start: 09-88-3902Tkefdu, spine, lumbar, XLIFSTRATOFUSE DBM 10CCFDAStart: 96-74-8973Lpydrq, spine, lumbar, XLIFTIMBERLINE INTERBODYFDAStart: 07-25-2020 Fusion, spine, lumbar, XLIFLATERAL STD 1 LEVEL CONSTRUCTFDAStart: 07-25-2020 Fusion, spine, lumbar, XLIFSTRATOFUSE DBM 10CCFDAStart: 65-77-1196Pseycn, spine, lumbar, XLIFTIMBERLINE INTERBODYFDAStart: 42-65-3300Ipvlvm, spine, lumbar, XLIF LATERAL STD 1 LEVEL CONSTRUCTFDAStart: 31-43-7454Algkbl, spine, lumbar, XLIF STRATOFUSE DBM 10CCFDAStart: 26-02-7112Nboniw, spine, lumbar, XLIFTIMBERLINE INTERBODYFDAStart: 03-08-8413Uwzion, spine, lumbar, XLIFLATERAL STD 1 LEVEL CONSTRUCTFDAStart: 10-11-0082Ovkzbi, spine, lumbar, XLIFSTRATOFUSE DBM 10CCFDA Start: 23-21-3601Qircdx, spine, lumbar, XLIFTIMBERLINE INTERBODYFDAStart: 61-51-2189Jtxrxr, spine, lumbar, XLIFLATERAL STD 1 LEVEL CONSTRUCTFDAStart: 91-07-6818Dunouy, spine, lumbar, XLIFSTRATOFUSE DBM 10CCFDAStart: 07-25-2020 Fusion, spine, lumbar, XLIFTIMBERLINE INTERBODYFDAStart: 69-76-6925Mhmnjv, spine, lumbar, XLIFLATERAL STD 1 LEVEL CONSTRUCTFDAStart: 83-09-7759Wkpyws, spine, lumbar, XLIFSTRATOFUSE DBM 10CCFDAStart: 99-12-1206Fjioel, spine, lumbar, XLIFTIMBERLINE INTERBODYFDAStart: 47-68-7498Dkerxj, spine, lumbar, XLIFLATERAL STD 1 LEVEL CONSTRUCTFDAStart: 42-07-4544Mlthav, spine, lumbar, XLIFSTRATOFUSE DBM 10CCFDAStart: 76-20-8324Vfrzvf, spine, lumbar, XLIFTIMBERLINE INTERBODYFDA Start: 85-21-1588Wqsapn, spine, lumbar, XLIFLATERAL STD 1 LEVEL CONSTRUCTFDA Start: 83-41-7312Ytbcms, spine, lumbar, XLIFSTRATOFUSE DBM 10CCFDAStart: 59-12-4125Kggecy, spine, lumbar, XLIFTIMBERLINE INTERBODYFDAStart: 07-25-2020 Fusion, spine, lumbar, XLIFLATERAL STD 1 LEVEL CONSTRUCTFDAStart: 07-25-2020 Fusion, spine, lumbar, XLIFSTRATOFUSE DBM 10CCFDAStart: 00-79-6024Vphldc, spine, lumbar, XLIFTIMBERLINE INTERBODYFDAStart: 20-47-3941Bkfxli, spine, lumbar, XLIF LATERAL STD 1 LEVEL CONSTRUCTFDAStart: 17-72-7578Orrjkv, spine, lumbar, XLIF STRATOFUSE DBM 10CCFDAStart: 38-67-1772Emocnr, spine, lumbar, XLIFTIMBERLINE INTERBODYFDAStart: 18-04-5737Viuycu, spine, lumbar, XLIFLATERAL STD 1 LEVEL CONSTRUCTFDAStart: 43-02-2424Yysulz, spine, lumbar, XLIFSTRATOFUSE DBM 10CCFDA Start: 94-39-3805Egoxtn, spine, lumbar, XLIFTIMBERLINE INTERBODYFDAStart: 38-02-636754556238, 60693186Pezrl: 08-11-2013 End: 55-03-7808Pzli-eluting coronary artery stent, mbx-kffhrszynnnws-xtldrcy-coated()[id number] FDAStart: 43-80-8719Aqqqjbr artery closure plug/patch, synthetic polymer()[id number] FDAStart: 82-93-5938Lsr Needle, Diabetic (Ulticare Pen Needle) 31 gauge x 3/16 needleStart: 07-48-8819Jqv Needle, Diabetic (Ulticare Pen Needle) 31 gauge x 3/16 needleStart: 05-13-2024 End: 80-20-2722Tss Needle, Diabetic (Ulticare Pen Needle) 31 gauge x 3/16 needleStart: 52-38-3477Ssd Needle, Diabetic (Ulticare Pen Needle) 31 gauge x 3/16 needleStart: 05-13-2024 End: 68-71-1678Tpp Needle, Diabetic (Ulticare Pen Needle) 31 gauge x 3/16 needleStart: 70-93-7067Qok Needle, Diabetic (Ulticare Pen Needle) 31 gauge x 3/16 needleStart: 05-13-2024 End: 07-68-8729Fpl Needle, Diabetic (Ulticare Pen Needle) 31 gauge x 3/16 needleStart: 15-68-3297Caf Needle, Diabetic (Ulticare Pen Needle) 31 gauge x 3/16 needleStart: 05-13-2024 End: 33-26-8939Vqo Needle, Diabetic (Ulticare Pen Needle) 31 gauge x 3/16 needleStart: 70-86-3685Irl Needle, Diabetic (Ulticare Pen Needle) 31 gauge x 3/16 needleStart: 05-13-2024 End: 32-74-7987Yja Needle, Diabetic (Ulticare Pen Needle) 31 gauge x 3/16 needleStart: 33-02-0133Vbp Needle, Diabetic (Ulticare Pen Needle) 31 gauge x 3/16 needleStart: 05-13-2024 End: 13-37-8098Pdw Needle, Diabetic (Ulticare Pen Needle) 31 gauge x 3/16 needleStart: 95-98-2060Ayn Needle, Diabetic (Ulticare Pen Needle) 31 gauge x 3/16 needleStart: 05-13-2024 End: 44-65-3844Lny Needle, Diabetic (Ulticare Pen Needle) 31 gauge x 3/16 needleStart: 05-13-2024 End: 16-43-3802Vrj Needle, Diabetic (Ulticare Pen Needle) 31 gauge x 3/16 needleStart: 72-37-2943Tqk Needle, Diabetic 31 gauge x 5/16 needleStart: 66-93-5920Bmf Needle, Diabetic (Ulticare Pen Needle) 31 gauge x 3/16 needle Start: 05-13-2024 End: 82-68-0383Sga Needle, Diabetic (Ulticare Pen Needle) 31 gauge x 3/16 needleStart: 05-13-2024 End: 60-28-8086Xlj Needle, Diabetic 31 gauge x 5/16 needleStart: 09-12-2024 End: 66-59-9002Swa Needle, Diabetic (Ulticare Pen Needle) 31 gauge x 3/16 needleStart: 16-32-5158Xpu Needle, Diabetic 31 gauge x 5/16 needleStart: 52-13-6602Ttj Needle, Diabetic (Ulticare Pen Needle) 31 gauge x 3/16 needle Start: 05-13-2024 End: 42-70-4546Adw Needle, Diabetic (Ulticare Pen Needle) 31 gauge x 3/16 needleStart: 05-13-2024 End: 43-12-7991Gwm Needle, Diabetic 31 gauge x 5/16 needleStart: 09-12-2024 End: 26-08-1514Ybs Needle, Diabetic (Ulticare Pen Needle) 31 gauge x 3/16 needleStart: 27-78-0807Bzi Needle, Diabetic 31 gauge x 5/16 needleStart: 15-86-7437Xbv Needle, Diabetic (Ulticare Pen Needle) 31 gauge x 3/16 needle Start: 05-13-2024 End: 85-83-4548Uiz Needle, Diabetic (Ulticare Pen Needle) 31 gauge x 3/16 needleStart: 05-13-2024 End: 83-45-6039Uvu Needle, Diabetic 31 gauge x 5/16 needleStart: 09-12-2024 End: 00-72-6012Lsk Needle, Diabetic (Ulticare Pen Needle) 31 gauge x 3/16 needleStart: 09-25-7667Gvx Needle, Diabetic 31 gauge x 5/16 needleStart: 05-94-6451Qgt Needle, Diabetic (Ulticare Pen Needle) 31 gauge x 3/16 needle Start: 05-13-2024 End: 24-13-8478Olf Needle, Diabetic (Ulticare Pen Needle) 31 gauge x 3/16 needleStart: 05-13-2024 End: 71-68-4360Hiv Needle, Diabetic 31 gauge x 5/16 needleStart: 09-12-2024 End: 12-51-1656Tdf Needle, Diabetic (Ulticare Pen Needle) 31 gauge x 3/16 needleStart: 41-09-2139Fpp Needle, Diabetic 31 gauge x 5/16 needleStart: 62-93-8070Aig Needle, Diabetic (Ulticare Pen Needle) 31 gauge x 3/16 needle Start: 05-13-2024 End: 60-52-5087Jrr Needle, Diabetic (Ulticare Pen Needle) 31 gauge x 3/16 needleStart: 05-13-2024 End: 19-42-2097Yfe Needle, Diabetic 31 gauge x 5/16 needleStart: 09-12-2024 End: 42-32-8175Ujn Needle, Diabetic (Ulticare Pen Needle) 31 gauge x 3/16 needleStart: 19-76-2812Tnj Needle, Diabetic 31 gauge x 5/16 needleStart: 45-61-9339Dds Needle, Diabetic (Ulticare Pen Needle) 31 gauge x 3/16 needle Start: 05-13-2024 End: 88-91-8248Tdg Needle, Diabetic (Ulticare Pen Needle) 31 gauge x 3/16 needleStart: 05-13-2024 End: 48-35-1902Qfr Needle, Diabetic 31 gauge x 5/16 needleStart: 09-12-2024 End: 45-21-9611Zfd Needle, Diabetic (Ulticare Pen Needle) 31 gauge x 3/16 needleStart: 27-83-9241Txv Needle, Diabetic 31 gauge x 5/16 needleStart: 68-66-5930Uli Needle, Diabetic (Ulticare Pen Needle) 31 gauge x 3/16 needle Start: 05-13-2024 End: 35-40-4846Gul Needle, Diabetic (Ulticare Pen Needle) 31 gauge x 3/16 needleStart: 05-13-2024 End: 61-42-1033Yrd Needle, Diabetic 31 gauge x 5/16 needleStart: 09-12-2024 End: 65-35-7797Ica Needle, Diabetic (Ulticare Pen Needle) 31 gauge x 3/16 needleStart: 20-18-9073Wye Needle, Diabetic 31 gauge x 5/16 needleStart: 30-51-4427Gjn Needle, Diabetic (Ulticare Pen Needle) 31 gauge x 3/16 needle Start: 05-13-2024 End: 79-66-6233Sft Needle, Diabetic (Ulticare Pen Needle) 31 gauge x 3/16 needleStart: 05-13-2024 End: 73-87-9003Mic Needle, Diabetic 31 gauge x 5/16 needleStart: 09-12-2024 End: 92-45-4697Fxd Needle, Diabetic (Ulticare Pen Needle) 31 gauge x 3/16 needleStart: 56-42-5905Ijz Needle, Diabetic 31 gauge x 5/16 needleStart: 10-96-3201Lqr Needle, Diabetic (Ulticare Pen Needle) 31 gauge x 3/16 needle Start: 05-13-2024 End: 72-21-2377Rgk Needle, Diabetic (Ulticare Pen Needle) 31 gauge x 3/16 needleStart: 05-13-2024 End: 51-41-2526Wjc Needle, Diabetic 31 gauge x 5/16 needleStart: 09-12-2024 End: 72-82-9112Vwl Needle, Diabetic (Ulticare Pen Needle) 31 gauge x 3/16 needleStart: 66-45-2617Pbr Needle, Diabetic 31 gauge x 5/16 needleStart: 08-32-5716Qji Needle, Diabetic (Ulticare Pen Needle) 31 gauge x 3/16 needle Start: 05-13-2024 End: 56-15-1171Hgf Needle, Diabetic (Ulticare Pen Needle) 31 gauge x 3/16 needleStart: 05-13-2024 End: 94-32-5923Tet Needle, Diabetic 31 gauge x 5/16 needleStart: 09-12-2024 End: 71-04-9180Blz Needle, Diabetic (Ulticare Pen Needle) 31 gauge x 3/16 needleStart: 99-22-6308Okw Needle, Diabetic 31 gauge x 5/16 needleStart: 90-98-6077Hwr Needle, Diabetic (Ulticare Pen Needle) 31 gauge x 3/16 needle Start: 05-13-2024 End: 02-81-1640Xjf Needle, Diabetic (Ulticare Pen Needle) 31 gauge x 3/16 needleStart: 05-13-2024 End: 73-16-2370Fdp Needle, Diabetic 31 gauge x 5/16 needleStart: 09-12-2024 End: 85-88-2651Bxa Needle, Diabetic (Ulticare Pen Needle) 31 gauge x 3/16 needleStart: 09-13-5172Jfi Needle, Diabetic 31 gauge x 5/16 needleStart: 26-47-3461Fzg Needle, Diabetic (Ulticare Pen Needle) 31 gauge x 3/16 needle Start: 05-13-2024 End: 38-45-0984Asr Needle, Diabetic (Ulticare Pen Needle) 31 gauge x 3/16 needleStart: 05-13-2024 End: 48-55-7545Xpk Needle, Diabetic 31 gauge x 5/16 needleStart: 09-12-2024 End: 61-55-4555Fkq Needle, Diabetic (Ulticare Pen Needle) 31 gauge x 3/16 needleStart: 39-96-3166Xtb Needle, Diabetic 31 gauge x 5/16 needleStart: 36-57-7131Bqf Needle, Diabetic (Ulticare Pen Needle) 31 gauge x 3/16 needle Start: 05-13-2024 End: 93-09-0920Laq Needle, Diabetic (Ulticare Pen Needle) 31 gauge x 3/16 needleStart: 05-13-2024 End: 16-18-7661Tuc Needle, Diabetic 31 gauge x 5/16 needleStart: 09-12-2024 End: 48-19-8426Hpp Needle, Diabetic (Ulticare Pen Needle) 31 gauge x 3/16 needleStart: 98-51-5324Fpf Needle, Diabetic 31 gauge x 5/16 needleStart: 49-70-1020Sjq Needle, Diabetic (Ulticare Pen Needle) 31 gauge x 3/16 needle Start: 05-13-2024 End: 98-63-4210Fnk Needle, Diabetic (Ulticare Pen Needle) 31 gauge x 3/16 needleStart: 05-13-2024 End: 84-81-6720Whw Needle, Diabetic 31 gauge x 5/16 needleStart: 09-12-2024 End: 23-70-2512Tnn Needle, Diabetic (Ulticare Pen Needle) 31 gauge x 3/16 needleStart: 31-01-8121Ala Needle, Diabetic 31 gauge x 5/16 needleStart: 16-11-8807Zsi Needle, Diabetic (Ulticare Pen Needle) 31 gauge x 3/16 needle Start: 05-13-2024 End: 41-69-4885Yvj Needle, Diabetic (Ulticare Pen Needle) 31 gauge x 3/16 needleStart: 05-13-2024 End: 91-12-3130Hfl Needle, Diabetic 31 gauge x 5/16 needleStart: 09-12-2024 End: 38-12-9623Jmu Needle, Diabetic (Ulticare Pen Needle) 31 gauge x 3/16 needleStart: 29-71-2059Wfm Needle, Diabetic 31 gauge x 5/16 needleStart: 13-73-6124Afa Needle, Diabetic (Ulticare Pen Needle) 31 gauge x 3/16 needle Start: 05-13-2024 End: 93-16-8298Abg Needle, Diabetic (Ulticare Pen Needle) 31 gauge x 3/16 needleStart: 05-13-2024 End: 12-17-0564Geq Needle, Diabetic 31 gauge x 5/16 needleStart: 09-12-2024 End: 30-75-0037Vez Needle, Diabetic (Ulticare Pen Needle) 31 gauge x 3/16 needleStart: 05-43-6203Bvl Needle, Diabetic 31 gauge x 5/16 needleStart: 52-26-4013Nsr Needle, Diabetic (Ulticare Pen Needle) 31 gauge x 3/16 needle Start: 05-13-2024 End: 46-10-0771Oxz Needle, Diabetic (Ulticare Pen Needle) 31 gauge x 3/16 needleStart: 05-13-2024 End: 10-67-1048Qzg Needle, Diabetic 31 gauge x 5/16 needleStart: 09-12-2024 End: 73-30-6470Fdb Needle, Diabetic (Ulticare Pen Needle) 31 gauge x 3/16 needleStart: 71-54-6390Wjf Needle, Diabetic 31 gauge x 5/16 needleStart: 42-77-9943Och Needle, Diabetic (Ulticare Pen Needle) 31 gauge x 3/16 needle Start: 05-13-2024 End: 12-21-9196Hsi Needle, Diabetic (Ulticare Pen Needle) 31 gauge x 3/16 needleStart: 05-13-2024 End: 75-16-7924Jqy Needle, Diabetic 31 gauge x 5/16 needleStart: 09-12-2024 End: 09-12-2024 Goals DatePatient GoalDesired Activity/State Functional Status YbpwAyhbhuedxxWefpyeRbyzjfyp11-69-1317Xongtgw Health Questionnaire 2 item (PHQ- 2) [Reported][facility] Clinical Notes 12-31-2014 to 10-11-2025 Note Date & [id number] Telephone encounter Note* Telephone Encounter - Margarita [...] Pt would like a call back at [phone] to discuss this. [facility] [id number] Miscellaneous Notes* Telephone Encounter - Margarita Esposito [...] Pt would like a call back at [phone] to discuss this. documented in this encounterMetropolitan [facility] Psych[facility] [id number] History of Present illness Narrative* Shaina Munroe, [...] Charcot's joint arthropathy ([facility]) Long-term insulin use ([facility]) Spondylolisthesis at L3-L4 level S/P laparoscopic cholecystectomy Other hammer toe(s) (acquired), left foot Chronic foot ulcer ([facility]) Carpal tunnel syndrome of right wrist Class 2 severe obesity with serious comorbidity and body mass index (BMI) of 35.0 to 35.9 in adult ([facility]) Type 2 diabetes mellitus [...] daily 50 units) (100 UNIT/ML SOPN) Labs [facility] HEMOGLOBIN A1C/HEMOGLOBIN.TOTAL:MFR:PT:BLD:QN: 8.1 Outpatient prescription Medication marked [...] (BMI) of 35.0 to 35.9 in adult ([facility]) Type 2 diabetes mellitus [...] PO) Take by mouth CONTINUOUS BLOOD GLUC GUEST SERVICES LEAD (DEXCOM G7 GUEST SERVICES LEAD) DEVICE USE DIRECTED CONTINUOUS BLOOD GLUC SENSOR [...] with the patient today. documented in this encounterMet[facility] [id number] Evaluation note* Diagnosis Onset Date Resolution Status Admit Date Chronic pain acuteJuly 2024 8:03amSacroiliitis, not elsewhere classifiedacuteJuly 2024 8:03amTrochanteric bursitisacuteJuly 2024 8:03am [facility] Work Phone: 1(806) 142-999407-02-2025 Evaluation note* Diagnosis Onset Date Resolution Status Admit Date Chronic pain acuteJuly 2024 8:03amSacroiliitis, not elsewhere classifiedacuteJuly 2024 8:03amTrochanteric bursitisacuteJuly 2024 8:03amChronic painacuteJuly 2024 9:03amSacroiliitis, not elsewhere classifiedacuteJuly 2024 9:03amTrochanteric bursitisacuteJuly 2024 9:03am [facility] Work Phone: 1(175) 940-285907-02-2025 Evaluation note* Diagnosis Onset Date Resolution Status Admit Date Chronic pain acuteJuly 2024 8:03amSacroiliitis, not elsewhere classifiedacuteJuly 2024 8:03amTrochanteric bursitisacuteJuly 2024 8:03amChronic painacuteJuly 2024 9:03amSacroiliitis, not elsewhere classifiedacuteJuly 2024 9:03amTrochanteric bursitisacuteJuly 2024 9:03amDiabetic foot ulcer associated with type 2 diabetes mellitus, with fat layeacuteAugust 2024 7:36amMRSA bacteremiaacuteAugust 2024 7:36amOral thrushacuteAugust 2024 7:36am [facility] Work Phone: 1(843) 358-212006-16-2025 History of Present illness Narrative* Shaina Munroe [...] (BMI) of 35.0 to 35.9 in adult ([facility]) Type 2 diabetes mellitus [...] units dinner (500 UNIT/ML SOPN) -Discontinued Labs [facility] HEMOGLOBIN A1C/HEMOGLOBIN.TOTAL:MFR:PT:BLD:QN: 8.1 Outpatient prescription Medication marked [...] KWIKPEN) 100 UNIT/ML injection insulin pen needle ([employer] Pentips) 31G X 8 mm misc Other Relevant Orders POCT glycosylated hemoglobin (Hb A1C) docked device (Completed) 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) - Primary Long-term insulin use ([facility]) Class 2 severe obesity with serious comorbidity and body mass index (BMI) of 35.0 to 35.9 in adult ([facility]) Type 2 diabetes mellitus [...] PO) Take by mouth CONTINUOUS BLOOD GLUC GUEST SERVICES LEAD (DEXCOM G7 GUEST SERVICES LEAD) DEVICE USE DIRECTED CONTINUOUS BLOOD GLUC SENSOR [...] PENTIPS) 31G X 8 MM MISC Drug [place] Unifine Pentips 31G X 8 MMmisc Injection subcutaneous tid USE DIRECTED Discontinued Medications No medications on file I have reviewed and reconciled the history and medication list with the patient today. documented in this encounterMet[facility] [id number] Evaluation note* Diagnosis Onset Date Resolution Status [...] back painacuteJuly 2024 8:03amTrochanteric bursitisacuteJuly 2024 8:03am [facility] Work Phone: 1(752) 641-717302-19-2025 Evaluation note* Diagnosis Onset Date Resolution Status [...] 06, 2025 7:41amSpondylolisthesis, lumbar regionacuteApril 2024 7:41am [facility] Work Phone: 1(622) 183-375402-10-2025 Evaluation note* Author France Carlson [facility] 2024 11:30amThe above note written by ITZ Teresa acting as human recorder, note dictated by Dr. Charan Casey. [facility] Work Phone: 1(286) 905-140302-10-2025 Telephone encounter Note* Telephone Encounter - Kati Clint - 01/09/2025 1:09 PM EST Pt's spouse called to ask if Dr. Merritt has any dexcom G7 sensors. She has been without for over aweek. Her prescription has been delayed due to insurance issues, She is having an injection tomorrow and is worried about her bg readings. [facility] [id number] Miscellaneous Notes* Telephone Encounter - Kati Jaramillo - 01/09/2025 1:09 PM EST Pt's spouse called to ask if Dr. Merritt has any dexcom G7 sensors. She has been without for over aweek. Her prescription has been delayed due to insurance issues, She is having an injection tomorrow and is worried about her bg readings. documented in this encounterMetropolitan [facility] Psych[facility] [id number] Evaluation note* Author France Carlson [facility] 2024 10:30amThe above note written by ITZ Teresa acting as human recorder, note dictated by Dr. Charan Casey. [facility] Work Phone: 1(543) 438-423211-20-2024 Evaluation note* Diagnosis Onset Date Resolution Status Admit Date Chronic pain acuteNovember 2023 8:01amOsteoarthritis of spine with radiculopathy, lumbar regionacuteNov2023 8:01amArthrosis of right acromioclavicular jointacuteNovember 2023 8:44amRotator cuff syndrome of right shoulder acuteNovember 2023 8:44amCoughacuteJanuary 2024 10:00amChronic pain acuteJanuary 2024 9:01amOsteoarthritis of spine with radiculopathy, lumbar regionacuteJanuary 2024 9:01am [facility] Work Phone: 1(475) 708-208911-20-2024 Evaluation note* Diagnosis Onset Date Resolution Status [...] of right shoulderacute December 29, 2024 7:33am [facility] Work Phone: 1(355) 340-273111-19-2024 History of Present illness Narrative* Shaina Munroe DO - 10/18/2024 8:35 PM ESTAssociated Problem(s): Type 2 diabetes mellitus with peripheral neuropathy ([facility]/HCC) During the appointment today all pertinent labs, [...] Charcot's joint arthropathy (CMS/HCC) Long-term insulin use ([facility]) Class 2 severe obesity with serious comorbidity and body mass index (BMI) of 39.0 to 39.9 in adult ([facility]) Type 2 diabetes mellitus with both eyes affected by mild nonproliferative retinopathy without macular edema, with long-term current use of insulin ([facility]) Follow up in about [...] at the same time. CONTINUOUS BLOOD GLUC GUEST SERVICES LEAD (DEXCOM G7 GUEST SERVICES LEAD) DEVICE USE DIRECTED CONTINUOUS BLOOD GLUC SENSOR [...] with the patient today. documented in this encounterMetropolitan [facility] [id number] Procedure noteGerman Hospital10-14-2024 Evaluation note* Diagnosis Onset Date Resolution Status Admit Date Chronic pain acuteOctober 2023 8:03amOsteoarthritis of spine with radiculopathy, lumbar regionacuteOctober 2023 8:03amSacroiliitis, not elsewhere classifiedacute September 12, 2024 8:03amChronic painacuteNovember 2023 8:01am Osteoarthritis of spine with radiculopathy, lumbar regionacuteNovember 2023 8:01am [facility] Work Phone: 1([phone]) 809-962910-14-2024 Evaluation note* Diagnosis Onset Date Resolution Status Admit Date Chronic pain acuteOctober 2023 8:03amOsteoarthritis of spine with radiculopathy, lumbar regionacuteOctober 2023 8:03amSacroiliitis, not elsewhere classifiedacute September 12, 2024 8:03amChronic painacuteNovember 2023 8:01am Osteoarthritis of spine with radiculopathy, lumbar regionacuteNovember 2023 8:01amArthrosis of right acromioclavicular jointacuteNovember 2023 8:44amRotator cuff syndrome of right shoulderacuteNov2023 8:44am [facility] Work Phone: 1([phone]) 680-710210-14-2024 Evaluation note* Diagnosis Onset Date Resolution Status Admit Date Chronic pain acuteOctober 2023 8:03amOsteoarthritis of spine with radiculopathy, lumbar regionacuteOctober 2023 8:03amSacroiliitis, not elsewhere classifiedacute September 12, 2024 8:03amChronic painacuteNovember 2023 8:01am Osteoarthritis of spine with radiculopathy, lumbar regionacuteNovember 2023 8:01amArthrosis of right acromioclavicular jointacuteNovember 2023 8:44amRotator cuff syndrome of right shoulderacuteNovember 2023 8:44am CoughacuteJanuary 2024 10:00am [facility] Work Phone: 1(174) 684-642209-26-2024 History of Present illness Narrative* Rosalinda Torres [...] remains way above target and due to Kbchykf-Saepm-Jglzt joints she has limited exercise capacity. Her [...] machine patient has been compliant with it. 1-Rmxqvmq-Xxhkc-Tooth joint in the ankles status post recent [...] , Rfl: ergocalciferol (Vitamin D-2) 1.25 MG (16648 UT) capsule, Take 1 capsule (50,000 Units) [...] type, unspecified whether angina present, unspecified whether emmonak or transplanted heart Follow Up In Cardiology [...] exam, discussion and plan. [facility] Work Phone: 1(884) 416-487809-26-2024 Instructions* Patient Instructions* Enedina Isidro LPN - [...] Provided instructions on exercise. 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 Her labs have been followed closely. [...] machine patient has been compliant with it. 6-Mkziuqe-Amjiu-Tooth joint in the ankles status post recent [...] , Rfl: ergocalciferol (Vitamin D-2) 1.25 MG (59748 UT) capsule, Take 1 capsule (50,000 Units) [...] type, unspecified whether angina present, unspecified whether emmonak or transplanted heart Follow Up In Cardiology 2. Essential hypertension 3. 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 4. Hyperlipidemia, unspecified hyperlipidemia type 5. Obstructive sleep apnea syndrome 6. Class 2 obesity with body mass index (BMI) of 37.0 to 37.9 in adult, unspecified obesity type, unspecified whether serious comorbidity present 7. Insulin-requiring or dependent type II diabetes mellitus ([facility]) Scribe Attestation By signing [...] exam, discussion and plan. documented in this [facility] Work Phone: 1(923) 848-337803-25-2024 Instructions* Patient Instructions* Enedina Isidro LPN - [...] 6 m Same medications documented [facility]Ge[facility] Work Phone: 1([phone]) 944-961601-31-2024 Evaluation note* Encounter Date Diagnosis Assessment Notes [...] to call if she does not improve. [facility] Other 12-05-2023 Evaluation note* Encounter Date Diagnosis Assessment Notes Treatment Notes Treatment Clinical Notes Oct, Hyperlipidemia (ICD-10 - E78.5) [facility] Other 11-29-2023 Evaluation note* Encounter Date Diagnosis Assessment Notes Treatment Notes Treatment Clinical Notes Sep, Trochanteric bursitis of left hi p (ICD-10 - M70.62) [facility] Other 11-29-2023 Evaluation note* Encounter Date Diagnosis [...] Sep,OtherAbove note written by Willi Leiva MA, Revenue Accounting Manager. Edited and approved by Dr. Blas Ortiz MD. [facility] Other 11-22-2023 Evaluation note* Encounter Date Diagnosis [...] of symptoms occur by end of treatment. [facility] Other 11-20-2023 Evaluation note* Encounter Date Diagnosis Assessment Notes Treatment Notes Treatment Clinical Notes Sep, Cervical spondylosis without mye lopathy (ICD-10 - M47.812) [facility] Other 11-08-2023 Evaluation note* Encounter Date Diagnosis Assessment Notes Treatment Notes Treatment Clinical Notes Sep, Hypertensive chronic kidney disease with stage 1 through stage 4 chronic kidney disease, or unspecified chronic kidney disease (ICD-10 - I12.9) [facility] Other 11-07-2023 History and physical note Author Yasmeen Treadwell [facility] October 06, 2023 8:31amNote Date/TimeNov2022 8:[place]am[place] [id number] Gastro[place]ology H&P Signed Patient: Rita Cobb MR#: [id number] [birth year] : 1960 Acct:[id number] Age/Sex: 62 / F Adm Date: 3 Loc: Room: Type: [facility] Attending Dr: Yasmeen Treadwell MD Copies [...] signed by Yasmeen Treadwell MD> 10/06/23 0831 [facility] Work Phone: 1(484) 964-893611-07-2023 Procedure noteGerman Hospital10-25-2023 Evaluation note* Encounter Date Diagnosis Assessment [...] Aug,OtherAbove note written by Corina Sánchez LPN, Revenue Accounting Manager. Edited and approved by Dr. Blas Ortiz MD. [place] [facility] Other 10-17-2023 Evaluation note* Encounter Date Diagnosis [...] risk of worsening renal function and hematuria. [facility] Other 09-19-2023 Evaluation note* Encounter Date Diagnosis Assessment Notes Treatment Notes Treatment Clinical Notes Jul, Hyperuricemia (ICD-10 - E79.0) Jul,iabetic neuropathy (ICD-10 - E11.40) [facility] Other 09-18-2023 Evaluation note* Encounter Date Diagnosis [...] Jul,OtherAbove note written by Corina Sánchez LPN, Revenue Accounting Manager. Edited and approved by Dr. Blas Ortiz MD. [facility] Other 09-12-2023 Evaluation note* Encounter Date Diagnosis [...] Jul,Low back pain, unspecified (ICD-10 - M54.50) [facility] Other 09-06-2023 Evaluation note* Encounter Date Diagnosis [...] Jul,Screening for colon cancer (ICD-10 - Z12.11) [facility] Other 08-03-2023 Evaluation note* Encounter Date Diagnosis Assessment Notes Treatment Notes Treatment Clinical Notes Jun, Type 2 diabetes wicho itus with diabetic neuropathy, unspecified (ICD-10 - E11.40) [facility] Other 06-20-2023 Evaluation note* Encounter Date Diagnosis [...] M47.812) Refill provided of the above medication. [facility] Other 06-06-2023 Evaluation note* Encounter Date Diagnosis Assessment Notes Treatment Notes Treatment Clinical Notes Apr, Type 2 diabetes wicho itus with diabetic neuropathy, unspecified (ICD-10 - E11.40) [facility] Other 05-15-2023 NotePROCEDURE: XR FOOT LT 2V HISTORY: Pain COMPARISON: XR foot left 04/07/2023 FINDINGS: BONES:Several intraoperative spot fluoroscopic images demonstrate removal of 3 separate lag screws fixating the second and fourth metatarsophalangeal joints. SOFT TISSUES:Expected intraoperative findings. OTHER: Negative. IMPRESSION: 1. Hardware revision involving left midfoot. Electronically authenticated by: BLANKA OLGUIN Date: 2023-04-13 11:35[facility]05-15-2023 NotePROCEDURE: XR FOOT LT MIN [...] Electronically authenticated by: BLANKA OLGUIN Date: 2023-04-13 11:29[facility]05-09-2023 NotePROCEDURE: XR FOOT LT MIN 3 [...] Electronically authenticated by: BLANKA OLGUIN Date: 2023-04-07 13:31[facility]05-08-2023 Evaluation note* Encounter Date Diagnosis Assessment Notes Treatment Notes Treatment Clinical Notes March, Type 2 diabetes wicho itus with diabetic neuropathy, unspecified (ICD-10 - E11.40) March,Type 2 diabetes mellitus with hyperglycemia, without long-term current use of insulin (ICD-10 - E11.65) [facility] Other 05-02-2023 Evaluation note* Encounter Date Diagnosis [...] as scheduled. Most recent A1C was 7.0. [facility] Other 04-27-2023 Evaluation note* Encounter Date Diagnosis Assessment Notes Treatment Notes Treatment Clinical Notes Feb, Hypertensive chronic kidney disease with stage 1 through stage 4 chronic kidney disease, or unspecified chronic kidney disease (ICD-10 - I12.9) Feb,Type 2 diabetes mellitus with diabetic neuropathy, unspecified (ICD- 10 - E11.40) [facility] Other 04-11-2023 Evaluation note* Encounter Date Diagnosis [...] have advised to continue with oral magnesium. [facility] Other 04-05-2023 Evaluation note* Encounter Date Diagnosis Assessment Notes Treatment Notes Treatment Clinical Notes Feb, Hyperlipidemia (ICD-10 - E78.5) [facility] Other 04-05-2023 Evaluation note* Encounter Date Diagnosis Assessment Notes Treatment Notes Treatment Clinical Notes Feb, Obstructive apnea (ICD-10 - G47. 33) Feb,Insomnia (ICD-10 - G47.00) Feb,Neuropathy (ICD-10 - G62.9) [facility] Other 04-05-2023 NotePROCEDURE: XR FOOT LT MIN [...] Electronically authenticated by: BLANKA OLGUIN Date: 2023-03-04 06:39[facility]03-20-2023 Evaluation note* Encounter Date Diagnosis Assessment Notes Treatment Notes Treatment Clinical Notes Jan, Hypertensive chronic kidney disease with stage 1 through stage 4 chronic kidney disease, or unspecified chronic kidney disease (ICD-10 - I12.9) Jan,iabetic neuropathy (ICD-10 - E11.40) [facility] Other 03-09-2023 Evaluation note* Encounter Date Diagnosis Assessment Notes Treatment Notes Treatment Clinical Notes Jan, Hyperuricemia (ICD-10 - E79.0) [facility] Other 03-08-2023 NotePROCEDURE: XR FOOT LT MIN [...] Electronically authenticated by: BRODERICK FLOR Date: 2023-02-04 09:36[facility]02-22-2023 NotePROCEDURE: XR FOOT LT MIN 3 [...] Electronically authenticated by: BLANKA OLGUIN Date: 2023-01-21 10:26[facility]02-20-2023 Evaluation note* Encounter Date Diagnosis Assessment Notes Treatment Notes Treatment Clinical Notes Dec, Diabetic neuropathy (ICD-10 - E1 1.40) [facility] Other [id number] NotePROCEDURE: XR FOOT LT MIN 3 VIEWS, [...] Electronically authenticated by: BLANKA OLGUIN Date: 2022-12-29 17:33[facility]01-30-2023 NotePROCEDURE: XR FOOT LT MIN [...] Electronically authenticated by: BLANKA OLGUIN Date: 2022-12-29 17:33[facility]01-30-2023 NotePROCEDURE: XR FOOT LT 2V HISTORY: Pain COMPARISON: XR foot bilateral 11/12/2022 FINDINGS: BONES:Multiple intraoperative spot fluoroscopic images demonstrate resection of the bases of the metatarsals followed by midfoot fusion via lag screws. Talocalcaneal fusion. SOFT TISSUES:Expected intraoperative findings. IMPRESSION: 1. Midfoot resection and fusion. 2. Talocalcaneal fusion. Electronically authenticated by: BLANKA OLGUIN Date: 2022-12-29 17:31[facility]01-24-2023 NoteEXAM: XR CHEST 2 V [...] Electronically authenticated by: ACOSTA JOHNSON Date: 2022-12-23 12:48[facility]11-29-2022 Evaluation note* Encounter Date Diagnosis Assessment Notes Treatment Notes Treatment Clinical Notes Sep, Encounter for immunization (ICD- 10 - Z23) Patient presents today for Shingrix vaccination #1 of 2. Patient denies current acute illness, denies any past allergy or serious reaction to previousvaccine or ingredients. Shingrix Vaccine material and current VIS discussed and provided to patient. [facility] Other 11-17-2022 Evaluation note* Encounter Date Diagnosis Assessment Notes Treatment Notes Treatment Clinical Notes Sep, Encounter for immunization (ICD- 10 - Z23) Patient denies current illness, previous allergic reaction to influenza vaccine, eggs, or other vaccines, and Guillain-[place] Syndrome. Patient given current editions of influenza Vaccine Information Statement (VIS). [facility] Other 11-17-2022 Evaluation note* Encounter Date Diagnosis Assessment Notes Treatment Notes Treatment Clinical Notes Sep, Hypertensive chronic kidney disease with stage 1 through stage 4 chronic kidney disease, or unspecified chronic kidney disease (ICD-10 - I12.9) [facility] Other 11-17-2022 Evaluation note* Encounter Date Diagnosis Assessment Notes Treatment Notes Treatment Clinical Notes Sep, Encounter for immunization (ICD- 10 - Z23) Patient presents today for COVID-19 vaccination booster. Patient pre-vaccination form answers reviewed. Patient denies current illness or allergic reaction to any component of a COVD-19 vaccine. Patient provided with copy of current EUA. [facility] Other 10-26-2022 Evaluation note* Encounter Date Diagnosis [...] her to take a low phosphorus diet. [facility] Other 10-04-2022 Evaluation note* Encounter Date Diagnosis [...] E11.40) Pateint continues on the above medications. [facility] Other 09-08-2022 Evaluation note* Encounter Date Diagnosis Assessment Notes Treatment Notes Treatment Clinical Notes Jul, Diabetic neuropathy (ICD-10 - E1 1.40) [facility] Other 08-17-2022 Evaluation note* Encounter Date Diagnosis Assessment Notes Treatment Notes Treatment Clinical Notes Jun, Hyperlipidemia (ICD-10 - E78.5) Jun,KD (chronic kidney disease) stage 3, GFR 30-59 ml/min (ICD-10 - N18.3) Jun,Essential hypertension (ICD-10 - I10) [facility] Other 08-03-2022 Evaluation note* Encounter Date Diagnosis Assessment Notes Treatment Notes Treatment Clinical Notes Jun, Type 2 diabetes wicho itus with diabetic neuropathy, unspecified (ICD-10 - E11.40) [facility] Other 06-01-2022 Evaluation note* Encounter Date Diagnosis Assessment Notes Treatment Notes Treatment Clinical Notes Apr, Obstructive apnea (ICD-10 - G47. 33) Apr,Insomnia (ICD-10 - G47.00) Apr,Neuropathy (ICD-10 - G62.9) [facility] Other 05-16-2022 Evaluation note* Encounter Date Diagnosis [...] Patient is to continue to follow with loan officer as scheduled. March,hortness of breath (ICD-10 - R06.02) Patient is to continue to follow with the loan officer as scheduled. March,arathyroid disease (ICD-10 - E21.5) Patient is to continue to follow with the specialist as scheduled. March,harcot foot due to diabetes mellitus (ICD-10 - E11.610) Patient is to continue to follow with as scheduled. [facility] Other 05-09-2022 Evaluation note* Encounter Date Diagnosis Assessment Notes Treatment Notes Treatment Clinical Notes March, Type 2 diabetes wicho itus with diabetic neuropathy, unspecified (ICD-10 - E11.40) March,Type 2 diabetes mellitus with hyperglycemia, without long-term current use of insulin (ICD-10 - E11.65) [facility] Other 03-24-2022 Evaluation note* Encounter Date Diagnosis [...] her to take a low phosphorus diet. [facility] Other 03-11-2022 Evaluation note* Encounter Date Diagnosis [...] her symptoms worsen. 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 I did provide a work note excuse today. Jan,hortness of breath (ICD-10 - R06.02) In house EKG ordered and reviewed. Cardiac consult recommended as above. Jan,iabetic neuropathy (ICD-10 - E11.40) Worsening bilateral neuropathy reported by the patient . she has been consulting with instructional services librarian who per patient has suggested it may [...] The patient encourged to follow up with quality assurance supervisor final as scheduled, discussion was had she would benefit from a pulmonary function test. [facility] Other 02-22-2022 Evaluation note* Encounter Date Diagnosis Assessment Notes Treatment Notes Treatment Clinical Notes Dec, Type 2 diabetes wicho itus with diabetic neuropathy, unspecified (ICD-10 - E11.40) [facility] Other 01-04-2022 Evaluation note* Encounter Date Diagnosis [...] deficiency (ICD-10 - E55.9) Blood work ordered. [facility] Other 02-01-2015 History general Narrative - Reported* Type Description Date Medical History DM2 Medical HistoryHTNMedical HistorySleep apneaMedical Historyhypercalcemia due to PHT [facility] HistoryneuropathyMedical History12/2014 colonscopy refusedMedical History12/31/2015 MRI left kneeMedical History04/15/19 colonoscopy refused; cologuard orderedMedical Oxtfatf76/19/19 Colonoscopy-abnormal repeat in 4 years (pos cologuard)Medical Wjgnxym91/2019 Pap w/ Dr. Hesteredical History Skin ulcer of left foot, limited to breakdown of skinMedical HistorySepsis, unspecified organismMedical HistoryH/O parathyroidectomyMedical HistoryRIGHT FOOT FRACTURESurgical Historycervical fusion and low back kfimyb4513Yzbsjeax HistoryProcedure:;Disease:Pyyrhrooi5678Yfscpooo Historyprevious cervical dwyxff9255Mvwnbmum HistoryProcedure:;Disease:Jatgrurqc2652Erdjvkcl History c/adczekd9484Xnhzldxt HistoryProcedure:;Disease:Edulsejfl9528Ilrcelmc Omavyxuajmhtwoisa0710Vnjzudbo HistoryProcedure:tubal ligationSurgical History Procedure:Low back fusionSurgical Historytubal vnaupttn4501Vsthafuu History2 parathyroids otxsfhc24/2013Surgical HistoryProcedure:cervical fusionSurgical HistoryBilateral eyelid ethwflw38/2012Surgical HistoryProcedure:x2 thyroid glands yxfmkun7302Kaisdoxv Historyleft knee arthoscopy02/2016Surgical History lithotripsy03/2015Surgical Historyleft knee arthroscopy02/2016Surgical History partial left knee replacement12/2016Surgical Historyincision and drainage necrotizing fasciiitis seroma/bullae left lateral ankle/midfoot12/27/17urgical Historypartial left knee htsxopllwud90/2017Surgical HistoryI&D, debridement necrotizing fasciitis left ankle12/27/2017Surgical HistoryLeft ankle I & D1-2018 Surgical HistoryGallbladder01/2018Surgical HistoryLap. cholecystectomy02/17/2018 Surgical Vyomnfnsvawbxswmtb11/19/2019Surgical HistoryColonoscopy06/17/2019 Surgical Historylow back adpnzpa2407/25/2020Hospitalization Dnuewggjalvxbciieu2146 Hospitalization Historynecrotizing fasciitis11/2017Hospitalization Historysee above [facility] Other 02-01-2015 History general Narrative - Reported* Type Description Date Medical History DM2 Medical HistoryHTNMedical HistorySleep apneaMedical Historyhypercalcemia due to [facility] HistoryneuropathyMedical History12/2014 colonscopy refusedMedical History12/31/2015 MRI left kneeMedical History04/15/19 colonoscopy refused; cologuard orderedMedical Fvltgml51/19/19 Colonoscopy-abnormal repeat in 4 years (pos cologuard)Medical Jfjqxcp57/2019 Pap w/ Dr. SeymourerMedical History Skin ulcer of left foot, limited to breakdown of skinMedical HistorySepsis, unspecified organismMedical HistoryH/O parathyroidectomyMedical HistoryRIGHT FOOT FRACTURESurgical Historycervical fusion and low back ptgtxl8058Pbnnclee HistoryProcedure:;Disease:Qomzgypng2217Vlpbifsi Historyprevious cervical xkzbsk1516Lzwqrlpu HistoryProcedure:;Disease:Nvdvmgehg2246Xqnitagw History c/zfluogx2641Zctbsptb HistoryProcedure:;Disease:Vrlxcgqqx7685Wsjtvojd Tuirghkictmaeggkr0840Btzygsfx HistoryProcedure:tubal ligationSurgical History Procedure:Low back fusionSurgical Historytubal bdfqpvfk7465Yhbzduuy History2 parathyroids uqnghiw05/2013Surgical HistoryProcedure:cervical fusionSurgical HistoryBilateral eyelid cxpxlso35/2012Surgical HistoryProcedure:x2 thyroid glands cxlepmo8262Cgfxhugg Historyleft knee arthoscopy02/2016Surgical History lithotripsy03/2015Surgical Historyleft knee arthroscopy02/2016Surgical History partial left knee replacement12/2016Surgical Historyincision and drainage necrotizing fasciiitis seroma/bullae left lateral ankle/midfoot12/27/17urgical Historypartial left knee erfwbvjdtah69/2017Surgical HistoryI&D, debridement necrotizing fasciitis left ankle12/27/2017Surgical HistoryLeft ankle I & D1-2018 Surgical HistoryGallbladder01/2018Surgical HistoryLap. cholecystectomy02/17/2018 Surgical Yruezbrswfngloimnz28/19/2019Surgical HistoryColonoscopy06/17/2019 Surgical Historylow back uxksiuh5807/25/2020Surgical HistoryCardiac cath with stent placement mid LAD03/27/2022Hospitalization Camyfluqhchcyevbgc9556 Hospitalization Historynecrotizing fasciitis11/2017Hospitalization Historysee above [facility] Other 02-01-2015 History general Narrative - Reported* Type Description Date Medical History DM2 Medical HistoryHTNMedical HistorySleep apneaMedical Historyhypercalcemia due to PHT s/p surgery [facility] HistoryneuropathyMedical History12/2014 colonscopy refusedMedical History12/31/2015 MRI left kneeMedical History04/15/19 colonoscopy refused; cologuard orderedMedical Attjalq27/19/19 Colonoscopy-abnormal repeat in 4 years (pos cologuard)Medical Vddkxkl25/2019 Pap w/ Dr. SeymourerMedical History Skin ulcer of left foot, limited to breakdown of skinMedical HistorySepsis, unspecified organismMedical HistoryH/O parathyroidectomyMedical HistoryRIGHT FOOT FRACTUREMedical HistoryLEFT FOOT LUCAS SEEING PODIATRISTSurgical History cervical fusion and low back yvzswl5327Jhghhmkm History Procedure:;Disease:Iavelrjos2381Yxqhpepp Historyprevious cervical fusion 1997Surgical HistoryProcedure:;Disease:Eljsxjopy0223Qurpmmny History c/nvpymsc3672Htdnhqew HistoryProcedure:;Disease:Hocycvjgh2687Ctelwlqm Sfknecrqxdahfxeav1254Bmzslbjf HistoryProcedure:tubal ligationSurgical History Procedure:Low back fusionSurgical Historytubal dccvoqxz1679Rnfrfboc History2 parathyroids pvjrzyg88/2013Surgical HistoryProcedure:cervical fusionSurgical HistoryBilateral eyelid khqiokw09/2012Surgical HistoryProcedure:x2 thyroid glands qwdlvog5136Jtsqvrvv Historyleft knee arthoscopy02/2016Surgical History lithotripsy03/2015Surgical Historyleft knee arthroscopy02/2016Surgical History partial left knee replacement12/2016Surgical Historyincision and drainage necrotizing fasciiitis seroma/bullae left lateral ankle/midfoot12/27/urgical Historypartial left knee zjbqsqmusjn00/2017Surgical HistoryI&D, debridement necrotizing fasciitis left ankle12/27/2017Surgical HistoryLeft ankle I & D1-2018 Surgical HistoryGallbladder01/2018Surgical HistoryLap. cholecystectomy02/17/2018 Surgical Aujbfjnvowanaklvld04/19/2019Surgical HistoryColonoscopy06/17/2019 Surgical Historylow back owispph1507/25/2020Surgical HistoryCardiac cath with stent placement mid LAD03/27/2022Hospitalization Zlfdovbygvmtefywun5065 Hospitalization Historynecrotizing fasciitis11/2017Hospitalization Historysee above [facility] Other 02-01-2015 History general Narrative - Reported* Type Description Date Medical History DM2 Medical HistoryHTNMedical HistorySleep apneaMedical Historyhypercalcemia due to [facility] HistoryneuropathyMedical History12/2014 colonscopy refusedMedical History12/31/2015 MRI left kneeMedical History04/15/19 colonoscopy refused; cologuard orderedMedical Epyjyhk44/19/19 Colonoscopy-abnormal repeat in 4 years (pos cologuard)Medical Mgrnzdv86/2019 Pap w/ Dr. SeymourerMedical History Skin ulcer of left foot, limited to breakdown of skinMedical HistorySepsis, unspecified organismMedical HistoryH/O parathyroidectomyMedical HistoryRIGHT FOOT FRACTUREMedical HistoryLEFT FOOT LUCAS SEEING PODIATRISTSurgical History cervical fusion and low back nxudku4256Dxvehdgo History Procedure:;Disease:Pqoiltphs8831Oiljfthn Historyprevious cervical fusion 1997Surgical HistoryProcedure:;Disease:Acjjmimfl1085Nucnzjyo History c/unozybx7338Nqvutrso HistoryProcedure:;Disease:Kgckqcnzx4426Zdjfljbz Qadhaufnokwhtpmhl4534Lmseocwk HistoryProcedure:tubal ligationSurgical History Procedure:Low back fusionSurgical Historytubal poitwsdb3496Ckkcweos History2 parathyroids bzsyvdb24/2013Surgical HistoryProcedure:cervical fusionSurgical HistoryBilateral eyelid eqmgauz48/2012Surgical HistoryProcedure:x2 thyroid glands dnwdyhp7812Nnleffnq Historyleft knee arthoscopy02/2016Surgical History lithotripsy03/2015Surgical Historyleft knee arthroscopy02/2016Surgical History partial left knee replacement12/2016Surgical Historyincision and drainage necrotizing fasciiitis seroma/bullae left lateral ankle/midfoot12/27/urgical Historypartial left knee migwcfojrga17/2017Surgical HistoryI&D, debridement necrotizing fasciitis left ankle12/27/2017Surgical HistoryLeft ankle I & D1-2017 Surgical HistoryGallbladder01/2018Surgical HistoryLap. cholecystectomy02/17/2018 Surgical Enuhehpuaztvdtcvxm30/19/2019Surgical HistoryColonoscopy06/17/2019 Surgical Historylow back sijolry9607/25/2020Surgical HistoryCardiac cath with stent placement mid LAD03/27/2022urgical Historyreconstruction lt foot surgery 12/29/2022Hospitalization Tnrlxzyocdpghgvtik9529Zhumzvdkugferwq History necrotizing fasciitis11/2017Hospitalization Historysee above [facility] Other 02-01-2015 History general Narrative - Reported* Type Description Date Medical History DM2 Medical HistoryHTNMedical HistorySleep apneaMedical Historyhypercalcemia due to [facility] HistoryneuropathyMedical History12/2014 colonscopy refusedMedical History12/31/2015 MRI left kneeMedical History04/15/19 colonoscopy refused; cologuard orderedMedical Axotesq86/19/19 Colonoscopy-abnormal repeat in 4 years (pos cologuard)Medical Cpznyok41/2019 Pap w/ Dr. SeymourerMedical History Skin ulcer of left foot, limited to breakdown of skinMedical HistorySepsis, unspecified organismMedical HistoryH/O parathyroidectomyMedical HistoryRIGHT FOOT FRACTUREMedical HistoryLEFT FOOT LUCAS SEEING PODIATRISTSurgical History cervical fusion and low back yqchuc3850Vzsewdmm History Procedure:;Disease:Xgbzywxya6341Pisxbuex Historyprevious cervical fusion 1997Surgical HistoryProcedure:;Disease:Lmwfxjxvh1138Ochdcsit History c/dlkvoxa0159Tnrkxylu HistoryProcedure:;Disease:Ikbfzidmd8285Cqfwxiqw Yazvttohxfayxvojp2175Aaxvqlzb HistoryProcedure:tubal ligationSurgical History Procedure:Low back fusionSurgical Historytubal idxyhjzl0998Xtfuuscj History2 parathyroids ygnypkn21/2013Surgical HistoryProcedure:cervical fusionSurgical HistoryBilateral eyelid /2012Surgical HistoryProcedure:x2 thyroid glands tlywcbm4769Okkzwzwl Historyleft knee arthoscopy02/2016Surgical History lithotripsy03/2015Surgical Historyleft knee arthroscopy02/2016Surgical History partial left knee replacement12/2016Surgical Historyincision and drainage necrotizing fasciiitis seroma/bullae left lateral ankle/midfoot12/27/17urgical Historypartial left knee gnghhskwoor78/2017Surgical HistoryI&D, debridement necrotizing fasciitis left ankle12/27/2017Surgical HistoryLeft ankle I & D1-2018 Surgical HistoryGallbladder01/2018Surgical HistoryLap. cholecystectomy02/17/2018 Surgical Nieykfnxqqknajcghz53/19/2019Surgical HistoryColonoscopy06/17/2019 Surgical Historylow back surgery-gxrklb8907/25/2020Surgical HistoryCardiac cath with stent placement mid LAD03/27/2022urgical Historyreconstruction lt foot xtizacw0812/29/2022Hospitalization Zptcvlxymyarivpizq6777Ntlixuhdcegqhrt History necrotizing fasciitis11/2017Hospitalization Historysee above [facility] Other 02-01-2015 History general Narrative - Reported* Type Description Date Medical History DM2 Medical HistoryHTNMedical HistorySleep apneaMedical Historyhypercalcemia due to [facility] HistoryneuropathyMedical History12/2014 colonscopy refusedMedical History12/31/2015 MRI left kneeMedical History04/15/19 colonoscopy refused; cologuard orderedMedical Xtxmopc79/19/19 Colonoscopy-abnormal repeat in 4 years (pos cologuard)Medical Nycetvz54/2019 Pap w/ Dr. SeymourerMedical History Skin ulcer of left foot, limited to breakdown of skinMedical HistorySepsis, unspecified organismMedical HistoryH/O parathyroidectomyMedical HistoryRIGHT FOOT FRACTUREMedical HistoryLEFT FOOT LUCAS SEEING PODIATRISTSurgical History cervical fusion and low back knnhrm1292Mjgzdhtz History Procedure:;Disease:Xwehpoeji9683Fgdpkkuh Historyprevious cervical fusion 1997Surgical HistoryProcedure:;Disease:Msicclyzm2454Rjleysgq History c/esnxneq5173Vwoxltlc HistoryProcedure:;Disease:Krzzdcdmm1195Vshxdnpk Vukvmctqlvrfrjjuo5791Qagchuzu HistoryProcedure:tubal ligationSurgical History Procedure:Low back fusionSurgical Historytubal kztbqlwu0925Xgyrjajz History2 parathyroids /2013Surgical HistoryProcedure:cervical fusionSurgical HistoryBilateral eyelid ayogpbr84/2012Surgical HistoryProcedure:x2 thyroid glands ybqumqu9009Oabxostc Historyleft knee arthoscopy02/2016Surgical History lithotripsy03/2015Surgical Historyleft knee arthroscopy02/2016Surgical History partial left knee replacement12/2016Surgical Historyincision and drainage necrotizing fasciiitis seroma/bullae left lateral ankle/midfoot12/27/17urgical Historypartial left knee /2017Surgical HistoryI&D, debridement necrotizing fasciitis left ankle12/27/2017Surgical HistoryLeft ankle I & D1-2017 Surgical HistoryGallbladder01/2018Surgical HistoryLap. cholecystectomy02/17/2018 Surgical Fwonmxhkkvejaxoaai99/19/2019Surgical HistoryColonoscopy06/17/2019 Surgical Historylow back surgery-qgbpbm9707/25/2020Surgical HistoryCardiac cath with stent placement mid LAD03/27/2022urgical Historyreconstruction lt foot surgery Dr. Castro12/29/2022Hospitalization Qdscjkknxccqdndwdd0771 Hospitalization Historynecrotizing fasciitis11/2017Hospitalization Historysee above [facility] Other 02-01-2015 History general Narrative - Reported* Type Description Date Medical History DM2 Medical HistoryHTNMedical HistorySleep apneaMedical Historyhypercalcemia due to PHT s/p surgery in [facility]Medical HistoryneuropathyMedical History12/2014 colonscopy refusedMedical History12/31/2015 MRI left kneeMedical History04/15/19 colonoscopy refused; cologuard orderedMedical Kknrkol54/19/19 Colonoscopy-abnormal repeat in 4 years (pos cologuard)Medical Zmfukwy04/2019 Pap w/ Dr. SeymourerMedical History Skin ulcer of left foot, limited to breakdown of skinMedical HistorySepsis, unspecified organismMedical HistoryH/O parathyroidectomyMedical HistoryRIGHT FOOT FRACTUREMedical HistoryLEFT FOOT LUCAS SEEING PODIATRISTSurgical History cervical fusion and low back tuaalv2534Dexkhdwu History Procedure:;Disease:Zvriglyji2697Thvxkuvl Historyprevious cervical fusion 1997Surgical HistoryProcedure:;Disease:Xrfagcvhw8527Wpidnbgo History c/hqtrkcs6902Esthjgct HistoryProcedure:;Disease:Frqvwuyzl5172Qlzmrcib Ptudjqheggmgvddzo1605Mxxjjbrd HistoryProcedure:tubal ligationSurgical History Procedure:Low back fusionSurgical Historytubal aeriqcky6429Cxlyclbj History2 parathyroids nvtkyho72/2013Surgical HistoryProcedure:cervical fusionSurgical HistoryBilateral eyelid /2012Surgical HistoryProcedure:x2 thyroid glands sytoiez4908Hiswtvxs Historyleft knee arthoscopy02/2016Surgical History lithotripsy03/2015Surgical Historyleft knee arthroscopy02/2016Surgical History partial left knee replacement12/2016Surgical Historyincision and drainage necrotizing fasciiitis seroma/bullae left lateral ankle/midfoot12/27/17urgical Historypartial left knee pnkprzejcrn86/2017Surgical HistoryI&D, debridement necrotizing fasciitis left ankle12/27/2017Surgical HistoryLeft ankle I & D1-2018 Surgical HistoryGallbladder01/2018Surgical HistoryLap. cholecystectomy02/17/2018 Surgical Hsdyxkzikhpcxasgjn55/19/2019Surgical HistoryColonoscopy06/17/2019 Surgical Historylow back surgery-jeldyl1507/25/2020Surgical HistoryCardiac cath with stent placement mid LAD03/27/2022urgical Historyreconstruction lt foot surgery Dr. Castro12/29/2022Surgical HistorySTEROID INJECTIONS IN LOW BACK AND RIGHT HIP08/2023Hospitalization Hjdoixzsohwrwyqybd8402Vpsjklnnqpdhedm Historynecrotizing fasciitis11/2017Hospitalization Historysee above [facility] Triage Other Evaluation note[employer] Other Evaluation noteNo InformationN[employer] Other Evaluation noteN[employer] Other evaluation noteNo assessment information available [facility] Work Phone: Evaluation note* Diagnosis Coronary artery disease, unspecified vessel or lesion type, unspecified whether angina present, unspecified whether [place] or transplanted heart- Primary Essential hypertension Unspecified essential hypertension 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 Hyperlipidemia, unspecified hyperlipidemia type Obstructive sleep apnea syndrome Obstructive sleep apnea (adult) (pediatric) Class 2 obesity with body mass index (BMI) of 37.0 to 37.9 in adult, unspecified obesity type, unspecified whether serious comorbidity present Insulin-requiring or dependent type II diabetes mellitus ([facility]) Type II or unspecified type diabetes mellitus without mention of complication, not stated as uncontrolled documented in this encounter [facility] Work Phone: Evaluation note* Diagnosis Onset Date Resolution Status Chronic pain acuteInflammation of sacroiliac jointacuteOsteoarthritis of spine with radiculopathy, lumbar regionacuteTrochanteric bursitisacute [facility] Work Phone: Evaluation note* Diagnosis Onset Date Resolution Status Chronic pain acuteInflammation of sacroiliac jointacuteOsteoarthritis of spine with radiculopathy, lumbar regionacuteTrochanteric bursitisacuteCKD (chronic kidney disease) stage 3, GFR 30-59 ml/minacuteHyperlipidemiaacuteHyperparathyroidism voropIFA-[id number]ldfuravgkxkbqouhptLjoqqbxbvyfkpoo acuteType 2 diabetes mellitus with diabetic chronic kidney diseaseacute [facility] Work Phone: Evaluation note* Diagnosis Onset Date Resolution Status Chronic pain acuteInflammation of sacroiliac jointacuteOsteoarthritis of spine with radiculopathy, lumbar regionacuteTrochanteric bursitisacuteCKD (chronic kidney disease) stage 3, GFR 30-59 ml/minacuteHyperlipidemiaacuteHyperparathyroidism [id number]wjkctuvahtsupsmdznFxcqllsltyvdscb acuteType 2 diabetes mellitus with diabetic chronic kidney diseaseacuteChronic painacuteLumbar muscle painacuteOsteoarthritis of spine with radiculopathy, lumbar regionacute [facility] Work Phone: Evaluation note* Diagnosis Onset Date Resolution Status CKD (chronic kidney disease) stage 3, GF R 30-59 ml/min bwnrpHibsnpqytaiutmjdtbsUomunmqqorwthydhosrkmlhfUDJ-AEDL-[id number] HyperuricemiaacuteHypomagnesemiaacuteNephrolithiasisacuteType 2 diabetes mellitus with diabetic chronic kidney diseaseacuteChronic painacuteLumbar muscle painacuteOsteoarthritis of spine with radiculopathy, lumbar regionacuteChronic painacuteOsteoarthritis of spine with radiculopathy, lumbar regionacute Sacroiliitis, not elsewhere classifiedacute [facility] Work Phone: evaluation note* Diagnosis Onset Date Resolution Status Chronic pain acuteLumbar muscle painacuteOsteoarthritis of spine with radiculopathy, lumbar regionacuteChronic painacuteOsteoarthritis of spine with radiculopathy, lumbar regionacuteSacroiliitis, not elsewhere classifiedacute [facility] Work Phone: evaluation note* Diagnosis Onset Date Resolution Status Chronic pain acuteLumbar muscle painacuteOsteoarthritis of spine with radiculopathy, lumbar regionacuteChronic painacuteOsteoarthritis of spine with radiculopathy, lumbar regionacuteSacroiliitis, not elsewhere classifiedacuteObstructive apneaacute [facility] Work Phone: evaluation note* Diagnosis Onset Date Resolution Status Chronic pain acuteLumbar muscle painacuteOsteoarthritis of spine with radiculopathy, lumbar regionacuteChronic painacuteOsteoarthritis of spine with radiculopathy, lumbar regionacuteSacroiliitis, not elsewhere classifiedacuteObstructive apneaacute Chronic painacuteOsteoarthritis of spine with radiculopathy, lumbar regionacute Sacroiliitis, not elsewhere classifiedacute [facility] Work Phone: Evaluation note* Diagnosis Onset Date Resolution Status Chronic pain acuteOsteoarthritis of spine with radiculopathy, lumbar regionacuteSacroiliitis, not elsewhere classifiedacute [facility] Work Phone: evaluation note* Diagnosis Type 2 diabetes mellitus with peripheral neuropathy ([facility])- Primary 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 ([facility]) Long-term insulin use ([facility]) Class 2 severe obesity due to excess calories with serious comorbidity and body mass index (BMI) of39.0 to 39.9 in adult ([facility]) Type 2 diabetes mellitus with peripheral neuropathy ([facility])- Primary 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 ([facility]) Class 2 severe obesity due to excess calories with serious comorbidity and body mass index (BMI) of39.0 to 39.9 in adult ([facility]) Long-term insulin use ([facility]) Spondylolisthesis at L3-L4 level Class 2 severe obesity due to excess calories with serious comorbidity and body mass index (BMI) of38.0 to 38.9 in adult ([facility])- Primary Type 2 diabetes mellitus with both eyes affected by mild nonproliferative retinopathy without macular edema, with long-term current use of insulin ([facility]) Type 2 diabetes mellitus with peripheral neuropathy ([facility]) 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 ([facility]) Long-term insulin use ([facility]) Type 2 diabetes mellitus with peripheral neuropathy ([facility])- Primary 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 ([facility]) Type 2 diabetes mellitus with both eyes affected by mild nonproliferative retinopathy without macular edema, with long-term current use of insulin ([facility]) Long-term insulin use ([facility]) Class 2 severe obesity due to excess calories with serious comorbidity and body mass index (BMI) of39.0 to 39.9 in adult ([facility]) documented in this encounter [facility] HealthcareEvaluation note* Diagnosis Coronary artery disease, unspecified vessel or lesion type, unspecified whether angina present, unspecified whether [place] or transplanted heart Elevated coronary artery calcium score Essential hypertension Unspecified essential hypertension Hyperlipidemia, unspecified hyperlipidemia type Type 2 diabetes mellitus without complication, with long-term current use of insulin ([facility]) 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 Obstructive sleep apnea syndrome Obstructive sleep apnea (adult) (pediatric) Class 2 obesity with body mass index (BMI) of 37.0 to 37.9 in adult, unspecified obesity type, unspecified whether serious comorbidity present documented in this encounter [facility] Work Phone: Evaluation note* Author France Carlson [facility] Centerbruary 2024 10:30amThe above note written by ITZ Teresa acting as human recorder, note dictated by Dr. Charan Casey. 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) Class 2 severe obesity due to excess calories with serious comorbidity and body mass index (BMI) of39.0 to 39.9 in adult ([facility]) Long-term insulin use (HCC) Spondylolisthesis at L3-L4 level Class 2 severe obesity due to excess calories with serious comorbidity and body mass index (BMI) of38.0 to 38.9 in adult [facility] [facility]-H[facility])- Primary Type 2 diabetes mellitus [...] index (BMI) of39.0 to 39.9 in adult ([facility]) Type 2 diabetes mellitus with [...] index (BMI) of37.0 to 37.9 in adult ([facility]) Type 2 diabetes mellitus with [...] index (BMI) of35.0 to 35.9 in adult ([facility]) documented in this encounter [facility] HealthcareEvaluation note* Diagnosis Type 2 diabetes mellitus with peripheral neuropathy (HCC)- Primary 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) Long-term insulin use (HCC) Class 2 severe obesity due to excess calories with serious comorbidity and body mass index (BMI) of39.0 to 39.9 in adult ([facility]) Type 2 diabetes mellitus with peripheral neuropathy (HCC)- Primary 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) Class 2 severe obesity due to excess calories with serious comorbidity and body mass index (BMI) of39.0 to 39.9 in adult ([facility] Long-term insulin use ([facility]) Spondylolisthesis at L3-L4 level Class 2 severe obesity due to excess calories with serious comorbidity and body mass index (BMI) of38.0 to 38.9 in adult ([facility])- Primary Type 2 diabetes [...] index (BMI) of39.0 to 39.9 in adult ([facility]) Type 2 diabetes mellitus [...] index (BMI) of37.0 to 37.9 in adult ([facility]) 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 [...] index (BMI) of35.0 to 35.9 in adult ([facility]) Type 2 diabetes mellitus with peripheral neuropathy ([facility])- Primary Type 2 [...] index (BMI) of35.0 to 35.9 in adult ([facility]) [facility] N[facility]ative - ReportedRevisu Other History general Narrative - ReportedRevisu Other Hospital Discharge instructions Additional Instructions DISCHARGE [...] years. -Follow up with PCP. -Office number [phone]. [facility] Work Phone: Reason for referral (narrative)* Consultation (Routine) - AuthorizedSpecialtyDiagnoses / ProceduresReferred By Contact Referred To ContactCardiology Diagnoses Coronary artery disease, unspecified vessel or lesion type, unspecified whether angina present, unspecified whether emmonak or transplanted heart Procedures Follow Up In Cardiology Rosalinda Torres MD [address] [place] [address] Rosalinda Torres MD [address] [place] [address], [address] [address] Referral IDStatusReasonStart DateExpiration DateVisits RequestedVisits [id number]/[id number]/ [facility] Work Phone: Reason for referral (narrative)* Consultation (Routine) - AuthorizedSpecialtyDiagnoses / ProceduresReferred By Contact Referred To ContactCardiology Diagnoses Coronary artery disease, unspecified vessel or lesion type, unspecified whether angina present, unspecified whether emmonak or transplanted heart Procedures Follow Up In Cardiology Rosalinda Torres MD [address] [facility] [address], [address] [place] [address] Rosalinda Torers MD [address] [facility] [address], [facility] [address] [place] [address] Referral IDStatusReasonStart DateExpiration DateVisits RequestedVisits [id number]/26/20249/ [facility] Work Phone: Refryp for referral (narrative)No reason for referral information availablePaulding County Hospital Work Phone: Summary Purpose Family History Unknown Family Member Name Dates Details Family history of CABG: Fat er(V17.49, Z82.49) Status:Active Unknown Family Member Name Dates Details Family history of CABG: [facility], [facility] er(V17.49, Z82.49) Status:Active Unknown Family Member Name Dates Details Family history of CABG: [facility], [facility] er(V17.49, Z82.49) Status:Active Unknown Family Member Name [...] the patient is agreeable to go on uadtuczehyuf99 mg daily along with Zetia 10 mg [...] any trouble since her angioplasty. She has Neycuza-Crcuq-Hxnbg disease and had recent surgery on the [...] has been compliant with it. * 7 Sfshrah-Qnshb-Wvbir joint in the ankles status post recent surgery on the left foot with plan to repair the right foot down the road Reason for Referral Reason Patient is need ing to having screening colonoscopy. Please schedule with [facility] Gastro. Patient DOES NOT want to see Dr. Bryant. Please call patient to schedule Diagnosis 1 Screening for colon cancer (Z12.11) Referral Organization [facility] Family Medicin elia [place] Referring Provider First Name Charan Referring Provider Last Name Jacinto Referring Provider Specialty Family Prac pop Referred Organization [facility] Gastroenterolo gy Referred Provider Yasmeen Treadwell Referred Address [address] [facility] ,[place], [place],[address] Referred Provider Specialty Gastroentero logy Referral Priority Routine General Notes Fore, Renée M 023 10:30:05 AM >Received today and sent P2P Reason stat consult and lou at Diagnosis 1 Chest pressure (R07. 89) Diagnosis 2 Shortness of breath (R06.02) Diagnosis 3 Type 2 diabetes wicho itus with diabetic neuropathy, unspecified (E11.40) Diagnosis 4 Obstructive apnea (G 47.33) Referral Organization [facility] Family Matthew rodrigez [place] Referring Provider First Name Charan Referring Provider Last Name Jacinto Referring Provider Specialty Family Giancarlo lord Referred Organization [facility] Heart enter Referred Address [address],[place], [place],[address] Referred Provider Specialty Cardiology Referral Priority Stat [...] stage 3, GFR 30-59 ml/min Hyperlipidemia Hyperparathyroidism [id number] Hyperuricemia Hypomagnesemia Nephrolithiasis Type 2 diabetes mellitus [...] stage 3, GFR 30-59 ml/min Hyperlipidemia Hyperparathyroidism [id number] Hyperuricemia Hypomagnesemia Nephrolithiasis Type 2 diabetes mellitus [...] stage 3, GFR 30-59 ml/min Hyperlipidemia Hyperparathyroidism [id number] Hyperuricemia Hypomagnesemia Nephrolithiasis Type 2 diabetes mellitus [...] stage 3, GFR 30-59 ml/min Hyperlipidemia Hyperparathyroidism [id number] Hyperuricemia Hypomagnesemia Nephrolithiasis Type 2 diabetes mellitus [...] Shoulder January 26, 2025 9:45am MRI RESULTS [facility] January 26, 2025 12:50pm Reason for Visit [...] M75.101 January 23, 2025 12:43pm MRI RESULTS [facility] January 26, 2025 12:50pm Rotator cuff syndrom [...] M75.101 January 23, 2025 12:43pm MRI RESULTS [facility] January 26, 2025 12:50pm Rotator cuff syndrom [...] M75.101 January 23, 2025 12:43pm MRI RESULTS [facility] January 26, 2025 12:50pm Rotator cuff syndrom [...] M75.101 January 23, 2025 12:43pm MRI RESULTS [facility] January 26, 2025 12:50pm Rotator cuff syndrom [...] 8:03a m Sacroiliitis, not elsewhere classified [facility] 2024 8:03am Trochanteric bursitis May 31, 2025 [...] 8:03a m Sacroiliitis, not elsewhere classified [facility] 2024 8:03am Trochanteric bursitis May 31, 2025 8:0 3am Chronic pain June 21, 2025 9:03 am Sacroiliitis, not elsewhere classified [facility] 2024 9:03am Trochanteric bursitis June 21, 2025 9: 03am Diabetic foot ulcer associat ed with type 2 diabetes mellitus, with fat laye July 12, 2025 7:36am MRSA bacteremia July 12, 2025 7: 36am Oral thrush July 12, 2025 7: 36am Additional Source Comments INFORMATION SOURCE (unrecogn ized section and content) DATE CREATED AUTHOR 07/28/2018 [facility] DATE CREATED AUTHOR AUTHOR'S ORGANIZ ATION 03/18/2022 [facility] DATE CREATED AUTHOR AUTHOR'S ORGANIZ ATION 10/17/2022 [facility] DATE CREATED AUTHOR AUTHOR'S ORGANIZ ATION 04/13/2023 [facility] DATE CREATED AUTHOR AUTHOR'S ORGANIZ ATION 05/08/2023 [employer] DATE CREATED AUTHOR AUTHOR'S ORGANIZ ATION 05/08/2023 [facility] DATE CREATED AUTHOR AUTHOR'S ORGANIZ ATION 02/23/2024 [facility] DATE CREATED AUTHOR AUTHOR'S ORGANIZ ATION 06/09/2025 [facility] DATE CREATED AUTHOR AUTHOR'S ORGANIZ ATION 07/29/2025 [facility] REASON FOR VISIT (unrecogniz ed section and content) ReasonOnset DateCommentsMedication Zbohohga65/12/2025ReasonCommentsFollow-up6m SpecialtyDiagnoses / ProceduresReferred By ContactReferred To ContactCardiology Diagnoses Coronary artery disease, unspecified vessel or lesion type, unspecified whether angina present, unspecified whether emmonak or transplanted heart Procedures Follow Up In Cardiology Rosalinda Torres MD [address] [facility] [address], [address] [address] Rosalinda Torres MD [address] [facility] [address], [address] [address] Referral IDStatusReasonStart DateExpiration DateVisits RequestedVisits [id number] CommentsFollow-up[address] ChengionCOLONOSCOPY REPORTUpdate Kiosk DemographicsMED REFILL, INCREASED LT HIPPAINF/U BILAT SI JOINT AND R GREATER TROCH BURSA INJ/JMBILAT SI JOINT AND RIGHT TROCH BURSA INJ/JMMAIL PPWrefill- bpk to send rxF/U FROM APPT WITH DR Mosesased pain in lower backemployee DSMEpain, back4 month Follow uppap issuesSHINGRIX #2 // [facility] TRADITIONAL PLAN THROUGH SPOUSESHINGRIX #1 // [facility] TRADITIONAL PLAN THROUGH SPOUSEMODERNA BIVALENT BOOSTERAFLURIA FLU VACCINECKD and HTNreview labSLEEP LABhosp recheck/ discuss disability processDocumentationFYI/ updateDisability paperworkEmployee Program F/UCKDPt no show Employee Diabetes Ed program 4/8Clinicalneuropathy, chest pressure ,SOBfyirefillsneeds fmla, FACETIME [phone] Care Teams (unrecognized sec tion and content) [...] 2023Team MemberRelationshipSpecialtyStart DateEnd Date Charan Casey DO [facility] [address] [place] [address] PCP - GeneralFamily Medicine02/22/24 Rosalinda Torres MD [address] [facility] [address], [address] [address] Consulting PhysicianCardiology02/22/24 Team Status: Inactive Member Role [...] 2024Team MemberRelationshipSpecialtyStart DateEnd Date Charan Casey MD [address] [place] [phone] PCP - General05/20/23 Moni Becker MD [address] [place] [address] PCP - [facility]/11/2411Team MemberRelationshipSpecialtyStart DateEnd Date Charan Casey DO [facility] - [facility]/22/24 Rosalinda Torres MD [address] [place] [address] [address], [facility] [address] [place] [address] Consulting PhysicianCardiology02/22/24 Team Status: Inactive Member Role [...] 2025Team MemberRelationshipSpecialtyStart DateEnd Date Charan Casey MD [address] [place] [phone] [facility] - General05/20/23 Team Status: Active Member [...] 2025Team MemberRelationshipSpecialtyStart DateEnd Date Charan Casey DO [address] [place] [phone] [facility] - [facility]05/20/23 Team Status: Inactive Member Role [...] 2025Team MemberRelationshipSpecialtyStart DateEnd Date Charan Casey DO [address] [place] [address], [place] [phone] PCP - General05/20/23Team MemberRelationshipSpecialtyStart DateEnd Date Charan Casey DO [address] [place] [address], [place] [phone] PCP - General05/20/23Team MemberRelationshipSpecialtyStart DateEnd Date Charan Casey DO [address] [place] [address], [place] [phone] PCP - General05/20/23 Goals (unrecognized section and [...] BE BASED ON THE PRIMARY CLINICAL RECORDS. [facility] [employer] [facility]. provides no warranty or guarantee of the accuracy or completeness of information in this document.
== END 2025-11-29 09:17 | disposition home or self-care (01) ==
LOC: WC 09:17
PROVIDERS: PCP Family Medicine; Visit Provider Physician Assistant
DX: E11.621 Type 2 diabetes mellitus with foot ulcer (principal); L97.423 Non-pressure chronic ulcer of left heel and midfoot with necrosis of muscle
CPT/HCPCS: 11043; 29445